=== PATIENT | male | born 1940 | race Caucasian/White ===

== ENCOUNTER 2017-07-11 18:29 | Emergency (ER) | payer MEDICARE, OTHER ==
[~2017-07-11] VITALS: Ht 172.7 cm; Wt 77.1 kg
[~2017-07-11 18:29] MED LIST: ACYCLOVIR400 MG PO; ADVAIR 500-501 EACH INH; ALBUTEROL2.5 MG/3 M IH; ALBUTEROL2.5 MG/3 M INH; ALBUTEROL2.5 MG/3 M NEB; AMARYL4 MG PO; AMITIZA24 MCG PO; AMLODIPINE BESY10 MG PO; CALCIUM WITH M1 EACH PO; D-20002000 UNIT PO; DEXILANT60 MG PO; DOXEPIN HCL150 MG PO; DULERA 100 MCG/13 GM; FERROUS SULFAT325 MG PO; GABAPENTIN300 MG PO; GABAPENTIN400 MG PO; GLIMEPIRIDE4 MG PO; GLUCOPHAGE500 MG PO; IMODIUM MULTI-1 EACH PO; IPRAT-ALBUT 0.5-3 ML INH; IPRATROPIU0.2 MG/1 M NEB; LANTUS SOL100 UNIT/1 SUB-Q; LANTUS100 UNITS/ SUB-Q; LEVAQUIN500 MG PO; LEVAQUIN750 MG PO; LINZESS145 MCG PO; LIPITOR80 MG GT; LIPITOR80 MG PO; LISINOPRIL40 MG PO; MAG6464 MG PO; METFORMIN HCL1000 MG PO; METFORMIN HCL500 MG PO; METOLAZONE5 MG PO; METOPROLOL TART25 MG PO; MILK OF MA400 MG/5 M PO; MULTI VITAMIN1 EACH PO; NEURONTIN400 MG PO; NICOTINE PATCH1 EAC1 TD; NOVOLOG FL100 UNIT/1 SQ; NOVOLOG FL100 UNIT/1 SUB-Q; NOVOLOG100 UNITS/ IV; NOVOLOG100 UNITS/ SUB-Q; OFLOXACIN10 ML OU; OFLOXACIN5 ML OU; OMNIPRED10 ML OU; OXYCODONE HCL15 MG; OXYCODONE HCL15 MG PO; PANTOPRAZOLE SO40 MG PO; PLAVIX75 MG PO; PREDNISONE20 MG PO; PRILOSEC20 MG PO; ROXICODONE15 MG PO; SENNA LAXATIVE1 EACH; SODIUM BICARBO650 MG PO; SPIRIVA18 MCG INH; TENORMIN50 MG PO; VANCOMYCIN HCL500 MG PO; VERAPAMIL ER120 MG PO; VITAMIN B-1000 MCG/1 PO; VITAMIN D50000 UNI1 PO; ZAROXOLYN5 MG PO; ZESTRIL40 MG PO; ZOFRAN ODT4 MG PO; [UNRECOGNIZED DRUG - REMARK] BUCCAL
[2017-07-11] MEDS ORDERED: TORSEMIDE20 MG PO (18:52)
[2017-07-11] MEDS ORDERED: ATENOLOL50 MG PO (18:52)
[2017-07-11] MEDS ORDERED: LISINOPRIL10 MG PO (18:52)
[2017-07-20] MEDS ORDERED: AMLODIPINE BESY10 MG PO (15:25)
[2017-07-20] MEDS ORDERED: PREDNISONE20 MG PO (16:19)
== END 2017-07-11 21:02 | disposition home or self-care (01) ==
LOC: ED 18:29
DX: I12.9 Hypertensive chronic kidney disease with stage 1 through stage 4 chronic kidney disease, or unspecified chronic kidney disease (principal); E11.22 Type 2 diabetes mellitus with diabetic chronic kidney disease; N18.3 Chronic kidney disease, stage 3 (moderate); J44.9 Chronic obstructive pulmonary disease, unspecified; R41.0 Disorientation, unspecified; R22.31 Localized swelling, mass and lump, right upper limb; F17.200 Nicotine dependence, unspecified, uncomplicated; Z86.73 Personal history of transient ischemic attack (TIA), and cerebral infarction without residual deficits; Z89.612 Acquired absence of left leg above knee; Z79.4 Long term (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 of insulin; Z79.899 Other long term (current) drug therapy
CPT/HCPCS: 71020; 80053; 81001; 85025; 93971; 99284

== ENCOUNTER → 2017-07-20 | Emergency (ER) | payer MEDICARE, OTHER ==
[~2017-07-20] VITALS: Ht 172.7 cm; Wt 77.1 kg
[~2017-07-20] MED LIST changes: +ATENOLOL50 MG PO; +LISINOPRIL10 MG PO; +TORSEMIDE20 MG PO
--- NOTE | 2017-07-20 18:35 | EKG ---
[facility] [address] [place] [address] Signed Normal sinus rhythm Normal ECG When compared with ECG of 06-NOV-2016 22:11, [place] interval has decreased Confirmed by SAHIL GAMEZ MD ([id number]) on 07/20/2017 6:35:33 PM Electronically Signed By: SAHIL GAMEZ MD 07/20/17 1835 PATIENT NAME: PORFIRIO ZAVALA [place] Electrocardiogram DATE OF : 40 PHYSICIAN: SAHIL GAMEZ MD REPORT #: [id number] REPORT IS CONFIDENTIAL AND NOT TO BE RELEASED WITHOUT AUTHORIZATION
== END ==
LOC: ED 13:28
DX: J44.9 Chronic obstructive pulmonary disease, unspecified (principal); I12.9 Hypertensive chronic kidney disease with stage 1 through stage 4 chronic kidney disease, or unspecified chronic kidney disease; E11.22 Type 2 diabetes mellitus with diabetic chronic kidney disease; N18.3 Chronic kidney disease, stage 3 (moderate); F17.200 Nicotine dependence, unspecified, uncomplicated; Z79.4 Long term (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 of insulin; Z86.73 Personal history of transient ischemic attack (TIA), and cerebral infarction without residual deficits; Z89.612 Acquired absence of left leg above knee; Z90.49 Acquired absence of other specified parts of digestive tract; Z79.899 Other long term (current) drug therapy
CPT/HCPCS: 71010; 80053; 83735; 83880; 84484; 85025; 93005; 93010; 99284

== ENCOUNTER 2017-08-01 15:16 | Emergency (ER) | payer MEDICARE, OTHER ==
[~2017-08-01] VITALS: Ht 172.7 cm; Wt 77.1 kg
--- NOTE | 2017-08-01 18:39 | EKG ---
[facility] [address] [facility] [place] [address] Signed Normal sinus rhythm Nonspecific ST abnormality Abnormal ECG When compared with ECG of 20-JUL-2017 13:51, No significant change was found Confirmed by SAHIL GAMEZ MD ([id number]) on 08/01/2017 6:39:02 PM Electronically Signed By: SAHIL GAMEZ MD 08/01/17 1839 PATIENT NAME: LUCASPORFIRIOTONIA CHACON Electrocardiogram DATE OF : 40 PHYSICIAN: SAHIL GAMEZ MD REPORT #: [id number] REPORT IS CONFIDENTIAL AND NOT TO BE RELEASED WITHOUT AUTHORIZATION
== END 2017-08-01 18:55 | disposition home or self-care (01) ==
LOC: ED 15:16
DX: I12.9 Hypertensive chronic kidney disease with stage 1 through stage 4 chronic kidney disease, or unspecified chronic kidney disease (principal); E11.22 Type 2 diabetes mellitus with diabetic chronic kidney disease; N18.3 Chronic kidney disease, stage 3 (moderate); E86.0 Dehydration; F17.200 Nicotine dependence, unspecified, uncomplicated; Z79.4 Long term (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 of insulin; Z89.519 Acquired absence of unspecified leg below knee; Z90.49 Acquired absence of other specified parts of digestive tract; Z79.52 Long term (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 of systemic steroids
CPT/HCPCS: 71020; 80053; 81001; 83880; 84484; 85025; 93005; 93010; 99284; J7040

== ENCOUNTER 2017-12-04 13:34 | Emergency (ER) | payer MEDICARE, OTHER ==
[~2017-12-04] VITALS: Ht 172.7 cm; Wt 80.3 kg
--- OUTSIDE RECORDS SUMMARY | 2017-12-04 13:41 | XMS | Clinical Summary ---
Demographics + + + | Address | [address] | | | [place] [address] | + + + | Home Phone | | + + + | Preferred Language | Unknown | + + + | Marital Status | Single | + + + | Pentecostal Affiliation | PRO | + + + | Race | White | + + + | Ethnic Group | Not or | + + + Author + + + | Author | [facility] | + + + | Organization | [facility] | + + + | Address | Unknown | + + + | Phone | Unavailable | + + + Support +------+ + + +-------+ | Name | Relationship | Address | Phone | +------+ + + +-------+ ECON | [place] | | [address] | +------+ + + +-------+ Care Team Providers + +------+ + | Care Erosion Control Specialist Name | Role | Phone | + +------+ + | Rahul Silva MD | PP | Unavailable | + +------+ + Source Comments DAKOTA is fully live on both [facility] and [facility] InPatient.[facility] Allergies No Known Allergies Current Medications + + +-------+---------+------+------+-------+ | Prescription | Sig. | Disp. | Refills | Star | End | Statu | | | | | | t | Date | s | | | | | | Date | | | + + +-------+---------+------+------+-------+ | oxycodone, | Take 15 mg by mouth | | | 05/1 | | Activ | | immediate release, | every three hours as | | | 1/20 | | e | | 15 mg Oral Tablet | needed. | | | 10 | | | + + +-------+---------+------+------+-------+ | hydromorphone 2 mg | Take 2 mg by mouth | | | 05/1 | | Activ | | Oral Tablet | every two hours as | | | 1/20 | | e | | | needed. | | | 10 | | | + + +-------+---------+------+------+-------+ | atenolol 50 mg | Take 50 mg by mouth | | | | | Activ | | Oral Tablet | once daily. | | | | | e | + + +-------+---------+------+------+-------+ | atorvastatin | Take 80 mg by mouth | | | | | Activ | | (LIPITOR) 80 mg Oral | once daily. | | | | | e | | Tablet | | | | | | | + + +-------+---------+------+------+-------+ | glimepiride 4 mg | Take 4 mg by mouth | | | | | Activ | | Oral Tablet | once daily with | | | | | e | | | breakfast. | | | | | | + + +-------+---------+------+------+-------+ | amlodipine | Take 5 mg by mouth | | | | | Activ | | (NORVASC) 5 mg Oral | once daily. | | | | | e | | Tablet | | | | | | | + + +-------+---------+------+------+-------+ | metolazone 5 mg | Take 5 mg by mouth | | | | | Activ | | Oral Tablet | once daily. | | | | | e | + + +-------+---------+------+------+-------+ | levothyroxine 50 | Take 50 mcg by mouth | | | | | Activ | | mcg Oral Tablet | once daily. | | | | | e | + + +-------+---------+------+------+-------+ | lisinopril 40 mg | Take 40 mg by mouth | | | | | Activ | | Oral Tablet | once daily. | | | | | e | + + +-------+---------+------+------+-------+ | clopidogrel | Take 75 mg by mouth | | | | | Activ | | (PLAVIX) 75 mg Oral | once daily. | | | | | e | | Tablet | | | | | | | + + +-------+---------+------+------+-------+ | doxepin 150 mg | Take 10 mg by mouth | | | | | Activ | | Oral Capsule | once daily at | | | | | e | | | bedtime. | | | | | | + + +-------+---------+------+------+-------+ | duloxetine | Take 60 mg by mouth | | | | | Activ | | (CYMBALTA) 60 mg | once daily. | | | | | e | | Oral Capsule, | | | | | | | | Delayed | | | | | | | | Release(E.C.) | | | | | | | + + +-------+---------+------+------+-------+ | gabapentin 600 mg | Take 1,200 mg by | | | 03/31 | | Activ | | Oral Tablet | mouth four times | | | 12/20 | | e | | | daily. | | | 10 | | | + + +-------+---------+------+------+-------+ Active Problems + + + | Problem | Noted Date | + + + | Low back pain | 04/10/2010 | + + + | Herniated lumbar intervertebral disc | 04/10/2010 | + + + | Stump pain (HCC) | 04/10/2010 | + + + Family History + + +------+ + | Medical History | Relation | Name | Comments | + + +------+ + | Alcohol/Drug | Father | | | + + +------+ + | Stroke | Maternal | | | | | Grandmoth | | | | | er | | | + + +------+ + | Anesthesia | Mother | | | + + +------+ + | Arthritis | Mother | | | + + +------+ + | Thyroid | Mother | | | + + +------+ + + +------+--------+ + | Relation | Name | Status | Comments | + +------+--------+ + | Father | | | | + +------+--------+ + | Maternal Grandmother | | | | + +------+--------+ + | Mother | | | | + +------+--------+ + Social History + + + +--------+------+ | Tobacco Use | Types | Packs/Day | Years | Date | | | | | Used | | + + + +--------+------+ | Current Every Day | Cigarettes | 2 | 50 | | | Smoker | | | | | + + + +--------+------+ + + +---------+ + | Alcohol Use | Drinks/We | oz/Week | Comments | | | ek | | | + + +---------+ + | No | | | | + + +---------+ + + + + | Sex Assigned at | Date Recorded | | | | + + + | Not on file | | + + + Last Filed Vital Signs + + + + | Vital Sign | Reading | Time Taken | + + + + | Blood Pressure | 140/54 | 04/10/2010 1:36 PM PDT | + + + + | Pulse | 80 | 04/10/2010 1:36 PM PDT | + + + + | Temperature | 37.1 C (98.8 F) | 04/10/2010 1:36 PM PDT | + + + + | Respiratory Rate | 16 | 04/10/2010 1:36 PM PDT | + + + + | Oxygen Saturation | 96% | 04/10/2010 1:36 PM PDT | + + + + | Inhaled Oxygen | - | - | | Concentration | | | + + + + | Weight | 89.4 kg (197 lb) | 04/10/2010 1:36 PM PDT | + + + + | Height | 170.2 cm (5' 7") | 04/10/2010 1:36 PM PDT | + + + + | Body Mass Index | 30.85 | 04/10/2010 1:36 PM PDT | + + + + Plan of Treatment + + + + + | Health Maintenance | Due Date | Last Done | Comments | + + + + + | INFLUENZA VACCINE | | | | | (FLU SHOT) | 7 | | | + + + + + Results Not on filefrom Last 3 Months
--- OUTSIDE RECORDS SUMMARY | 2017-12-04 13:41 | XMS | Clinical Summary ---
Demographics + + + | Address | [address] | | | [place] [address] | + + + | Home Phone | | + + + | Preferred Language | Unknown | + + + | Marital Status | Single | + + + | Mormonism Affiliation | PRO | + + + | Race | White | + + + | Ethnic Group | Not or | + + + Author + + + | Author | [facility] | + + + | Organization | [facility] | + + + | Address | Unknown | + + + | Phone | Unavailable | + + + Support +------+ + + +-------+ | Name | Relationship | Address | Phone | +------+ + + +-------+ ECON | [place] | | [address] | +------+ + + +-------+ Care Team Providers + +------+ + | Care Transformation Analyst Name | Role | Phone | + +------+ + | Rahul Silva MD | PP | Unavailable | + +------+ + Source Comments DAKOTA is fully live on both [facility] and [facility] InPatient.[facility] Allergies No Known Allergies Current Medications + [...]
== END 2017-12-04 15:27 | disposition home or self-care (01) ==
LOC: ED 13:34
DX: R51 Headache (principal); I12.9 Hypertensive chronic kidney disease with stage 1 through stage 4 chronic kidney disease, or unspecified chronic kidney disease; E11.22 Type 2 diabetes mellitus with diabetic chronic kidney disease; N18.4 Chronic kidney disease, stage 4 (severe); J44.9 Chronic obstructive pulmonary disease, unspecified; F17.200 Nicotine dependence, unspecified, uncomplicated; Z86.73 Personal history of transient ischemic attack (TIA), and cerebral infarction without residual deficits; Z79.899 Other long term (current) drug therapy; Z79.4 Long term (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 of insulin; Z99.2 Dependence on renal dialysis
CPT/HCPCS: 36415; 70450; 85025; 85651; 96372; 99284; J2270

== ENCOUNTER 2017-12-09 16:10 | Emergency (ER) | payer MEDICARE, OTHER ==
[~2017-12-09] VITALS: Ht 172.7 cm; Wt 77.1 kg
== END 2017-12-09 16:37 | disposition home or self-care (01) ==
LOC: ED 16:10
DX: S51.811D Laceration without foreign body of right forearm, subsequent encounter (principal); X58.XXXD Exposure to other specified factors, subsequent encounter

== ENCOUNTER 2018-05-27 19:49 | Emergency (ER) | payer MEDICARE, OTHER ==
[~2018-05-27] VITALS: Ht 172.7 cm; Wt 77.1 kg
[2018-05-27] MEDS ORDERED: KEFLEX500 MG PO (22:19)
== END 2018-05-27 22:30 | disposition home or self-care (01) ==
LOC: ED 19:49
DX: N39.0 Urinary tract infection, site not specified (principal); E11.9 Type 2 diabetes mellitus without complications; I12.9 Hypertensive chronic kidney disease with stage 1 through stage 4 chronic kidney disease, or unspecified chronic kidney disease; N18.4 Chronic kidney disease, stage 4 (severe); J44.9 Chronic obstructive pulmonary disease, unspecified; F17.200 Nicotine dependence, unspecified, uncomplicated; Z79.899 Other long term (current) drug therapy; Z79.4 Long term (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 of insulin
CPT/HCPCS: 74176; 80053; 81001; 85025; 99284

== ENCOUNTER 2019-02-15 22:20 | Observation (INO) | payer MEDICARE, OTHER ==
[~2019-02-15] VITALS: Ht 172.7 cm; Wt 82.8 kg
--- OUTSIDE RECORDS SUMMARY | ~2019-02-15 | XMS | Clinical Summary ---
Demographics + + + | Address | [address] | | | [place] [address] | + + + | Home Phone | | + + + | Preferred Language | Unknown | + + + | Marital Status | | + + + | Sikh Affiliation | 1077 | + + + | Race | Unknown | + + + | Ethnic Group | Unknown | + + + Author + + + | Author | [facility] | | | and [place] | + + + | Organization | [facility] | | | [...] Team Providers + +------+ + | Care Refining Engineer Name | Role | Phone | + +------+ + | Rahul Silva MD | PP | Unavailable | + +------+ + Allergies No Known Allergies Current Medications + + +-------+---------+------+------+-------+ | Prescription | Sig. | Disp. | Refills | Star | End | Statu | | | | | | t | Date | s | | | | | | Date | | | + + +-------+---------+------+------+-------+ | albuterol 2.5 mg/3 | Take 2.5 mg by | | | | | Activ | | mL nebulizer | nebulization every 6 | | | | | e | | solution | hours as needed. | | | | | | + + +-------+---------+------+------+-------+ | oxyCODONE | Take 15 mg by mouth | | | | | Activ | | (ROXICODONE) 15 mg | every 4 hours. | | | | | e | | immediate release | | | | | | | | tablet | | | | | | | + + +-------+---------+------+------+-------+ | ondansetron | Take 4 mg by mouth | | | | | Activ | | (ZOFRAN ODT) 4 mg | every 8 hours as | | | | | e | | disintegrating | needed. | | | | | | | tablet | | | | | | | + + +-------+---------+------+------+-------+ | amlodipine | Take 10 mg by mouth | | | | | Activ | | (NORVASC) 10 MG | Daily. | | | | | e | | tablet | | | | | | | + + +-------+---------+------+------+-------+ | ferrous sulfate | Take 325 mg by mouth | | | | | Activ | | 325 mg tablet | 2 times daily (with | | | | | e | | | breakfast & | | | | | | | | dinner). | | | | | | + + +-------+---------+------+------+-------+ | metolazone | Take 5 mg by mouth | | | | | Activ | | (ZAROXOLYN) 5 MG | Daily. | | | | | e | | tablet | | | | | | | + + +-------+---------+------+------+-------+ | lisinopril | Take 40 mg by mouth | | | | | Activ | | (PRINIVIL,ZESTRIL) | Daily. | | | | | e | | 40 MG tablet | | | | | | | + + +-------+---------+------+------+-------+ | atorvaSTATin | Take 80 mg by mouth | | | | | Activ | | (LIPITOR) 80 MG | nightly. | | | | | e | | tablet | | | | | | | + + +-------+---------+------+------+-------+ | doxepin (SINEQUAN) | Take 150 mg by mouth | | | | | Activ | | 150 MG capsule | nightly. | | | | | e | + + +-------+---------+------+------+-------+ | gabapentin | Take 400 mg by mouth | | | | | Activ | | (NEURONTIN) 400 mg | nightly. | | | | | e | | capsule | | | | | | | + + +-------+---------+------+------+-------+ | nicotine | Place 1 patch onto | | | | | Activ | | (NICODERM) 21 mg/24 | the skin every 24 | | | | | e | | hr | hours. | | | | | | + + +-------+---------+------+------+-------+ | clopidogrel | Take 75 mg by mouth | | | | | Activ | | (PLAVIX) 75 mg | Daily. | | | | | e | | tablet | | | | | | | + + +-------+---------+------+------+-------+ | acyclovir | Take 400 mg by mouth | | | | | Activ | | (ZOVIRAX) 400 MG | 2 times daily. | | | | | e | | tablet | Takes 400mg AM and | | | | | | | | HS | | | | | | + + +-------+---------+------+------+-------+ | insulin aspart | Inject under the | | | | | Activ | | (NOVOLOG PENFILL) | skin 3 times daily | | | | | e | | 100 units/mL | (before meals). Per | | | | | | | injection [...] | M.D. | | | | | | + + +-------+---------+------+------+-------+ | | Take 3 mLs by | | | | | Activ | | albuterol-ipratropiu | nebulization Before | | | | | e | | m (DUONEB) 2.5-0.5 | breakfast, dinner | | | | | | | mg/3 mL SOLN | and bedtime. | | | | | | + + +-------+---------+------+------+-------+ | nicotine | Place 2 mg inside | | | | | Activ | | (NICORETTE) 2 mg gum | cheek every hour as | | | | | e | | | needed (nicotine | | | | | | | | cravings). | | | | | | + + +-------+---------+------+------+-------+ | Cholecalciferol | Take 50,000 Units by | | | | | Activ | | (VITAMIN D-3) [address]198 | mouth Every 3 | | | | | e | | units CAPS | months. Times 3 | | | | | | | | doses | | | | | | + + +-------+---------+------+------+-------+ | magnesium | Take by mouth Daily | | | | | Activ | | hydroxide (MILK OF | as needed for | | | | | e | | MAGNESIA) 400 mg/5 | Constipation. | | | | | | | mL suspension | | | | | | | + + +-------+---------+------+------+-------+ | Multiple | Take 1 tablet by | | | | | Activ | | Vitamins-Minerals | mouth Daily. | | | | | e | | (MULTIVITAMIN ADULT | | | | | | | | PO) | | | | | | | + + +-------+---------+------+------+-------+ | cyanocobalamin | Take 1,000 mcg by | | | | | Activ | | (VITAMIN B-12) 1000 | mouth every 14 days. | | | | | e | | MCG tablet | | | | | | | + + +-------+---------+------+------+-------+ | atenolol | Take 50 mg by mouth | | | | | Activ | | (TENORMIN) 50 mg | Daily. | | | | | e | | tablet | | | | | | | + + +-------+---------+------+------+-------+ | glimepiride | Take 8 mg by mouth | | | | | Activ | | (AMARYL) 4 mg tablet | every morning | | | | | e | | | (before breakfast). | | | | | | | | Takes 8mg QAC | | | | | | + + +-------+---------+------+------+-------+ | aspirin 81 mg | Take 81 mg by mouth | | | | | Activ | | chewable tablet | Daily. | | | | | e | + + +-------+---------+------+------+-------+ Active Problems + + + | Problem | Noted Date | + + + | Intractable pain | 08/04/2016 | + + + | Insulin dependent type 2 diabetes mellitus, uncontrolled (HCC) | 08/04/2016 | + + + | PAOLO on CPAP | 08/04/2016 | + + + + + | Overview: With additional 4 L of nasal cannula oxygen | + + + + + | Phantom limb pain (HCC) | 08/04/2016 | + + + | Intertrochanteric fracture of left hip, closed, initial encounter | 08/03/2016 | | (HCC) | | + + + | Laceration of left ear, initial encounter | 08/03/2016 | + + + | Status post fall | 08/03/2016 | + + + | Acute hyperkalemia | 08/03/2016 | + + + | Chronic kidney disease (CKD), stage 3 (moderate) | 08/03/2016 | + + + | PAOLO (obstructive sleep apnea) | 02/16/2014 | + + + | COPD (chronic obstructive pulmonary disease) (HCC) | 02/16/2014 | + + + Immunizations + + + + | Name | Dates Previously Given | Next Due | + + + + | TDAP, (ADOL/ADULT) | 08/03/2016 | | + + + + Social History + [...] + | Blood Pressure | 171/70 | 08/05/2016724 PDT | + + + + | Pulse | 69 | 08/05/20161199 PDT | + + + + | Temperature | 36.7 C (98.1 F) | 08/05/2016724 PDT | + + + + | Respiratory Rate | 16 | 08/05/2016925 PDT | + + + + | Oxygen Saturation | 90% | 08/05/20161199 PDT | + + + + | Inhaled Oxygen | - | - | | Concentration | | | + + + + | Weight | 94 kg (207 lb 3.2 | 08/05/2016499 PDT | | | oz) | | + + + + | Height | 172.7 cm (5' 8") | 08/04/20166 PDT | + + + + | Body Mass Index | 31.5 | 08/05/2016499 PDT | + + + + Plan of Treatment + + + + + | Health Maintenance | Due Date | Last Done | Comments | + + + + + | Vaccine: Zoster (1 | | | | | of 2) | 0 | | | + + + + + | Vaccine: | | | | | Pneumococcal 65+ | 5 | | | | Low/Medium Risk (1 | | | | | of 2 - PCV13) | | | | + + + + + | Vaccine: Influenza | | | | | (#1) | 8 | | | + + + + + | Vaccine: | | 08/03/2016 | | | Dtap/Tdap/Td (2 - | 6 | | | | Td) | | | | + + + + + Results Not on filefrom Last 3 Months Insurance + +--------+ +--------+ +---------+ | Payer | Benefi | Subscriber | Type | Phone | Address | | | t Plan | ID | | | | | | / | | | | | | | Group | | | | | + +--------+ +--------+ +---------+ | [place] | MEDICA | [id number] | Medica | [phone] | | | ID | | id | [phone] | | | | [place] | | | | | + +--------+ +--------+ +---------+ + +--------+ +--------+ + + | Guarantor Name | Accoun | Relation to | Date | Phone | Billing Address | | | t Type | Patient | of | | | | | | | | | | + +--------+ +--------+ + + | PORFIRIO ZAVALA | Person | Self [birth year] | Home: | [address] | | [place] | al/[place] | | 1940 | [phone] [place] | | | [place] | | | [address] | [phone] | + +--------+ +--------+ + +
--- OUTSIDE RECORDS SUMMARY | ~2019-02-15 | XMS | Encounter Summary ---
Demographics + + + | Address | [address] | | | [place] [address] | + + + | Home Phone | | + + + | Preferred Language | Unknown | + + + | Marital Status | | + + + | [employer] Affiliation | [id number] | + + + | Race | Unknown | + + + | Ethnic Group | Unknown | + + + Author + + + | Author | [facility] | + + + | Organization | [facility] | + + + | Address | Unknown | + + + | Phone | Unavailable | + + + Support + + +---------+ + | Name | Relationship | Address | Phone | + + +---------+ + | Charlotte Andujar | ECON | Unknown | | + + +---------+ + Care Team Providers + +------+ + | Care Religious Activities Director Name | Role | Phone | + +------+ + | Rahul Silva MD | PCP | Unavailable | + +------+ + Encounter Details +--------+---------+ + + + | Date | Type | Department | Care Team | Description | +--------+---------+ + + + | 12/07/ | Office | [facility] | Farrukh Acuna MD | CKD (chronic kidney | | 2019 | Visit | [address] [address] | [address] | disease), stage IV | | | | [address] | [address] [place], [place] | (Primary Dx); Edema | | | | [place] [address] | [id number] | of right lower | | | | [phone] | | extremity; Anemia of | | | | | | chronic renal | | | | | | failure, stage 4 | | | | | | (severe) ([facility]); | | | | | | Electrolyte | | | | | | imbalance risk; | | | | | | Persistent | | | | | | proteinuria; Tobacco | | | | | | abuse; 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, with | | | | | | long-term current | | | | | | use of insulin | | | | | | ([facility]); Secondary | | | | | | hyperparathyroidism | | | | | | (HCC); Vitamin D | | | | | | deficiency | +--------+---------+ + + + Social History + +-------+ +--------+------+ | Tobacco Use | Types | Packs/Day | Years | Date | | | | | Used | | + +-------+ +--------+------+ | Current Every Day | | 1 | | | | Smoker | | | | | + +-------+ +--------+------+ + +---+---+---+ | Smokeless Tobacco: | | | | | Never Used | | | | + +---+---+---+ + + +---------+ + | Alcohol Use | Drinks/We | oz/Week | Comments | | | ek | | | + + +---------+ + | No | 0 | 0.0 | | | | Standard | | | | | drinks or | | | | | | | | | | equivalen | | | | | t | | | + + +---------+ + + + + | Sex Assigned at | Date Recorded | | | | + + + | Not on file | | + + + as of this encounter Last Filed Vital Signs + + + + | Vital Sign | Reading | Time Taken | + + + + | Blood Pressure | 162/60 | 12/07/2018 11:58 AM PST | + + + + | Pulse | 63 | 12/07/2018 11:58 AM PST | + + + + | Temperature | - | - | + + + + | Respiratory Rate | - | - | + + + + | Oxygen Saturation | 96% | 12/07/2018 11:58 AM PST | + + + + | Inhaled Oxygen | - | - | | Concentration | | | + + + + | Weight | 84.9 kg (187 lb 3.2 | 12/07/2018 11:58 AM PST | | | oz) | | + + + + | Height | 172.7 cm (5' 8") | 12/07/2018 11:58 AM PST | + + + + | Body Mass Index | 28.46 | 12/07/2018 11:58 AM PST | + + + + in this encounter Instructions Patient Instructions - Farrukh Acuna MD - 12/07/2018 12:00 PM PSTDiscussions/Recommendatio ns: I discussed today with Mr. Andujar the [...] low salt, low phosphorus & low purine diet and will avoid al l kinds of NSAIDs for analgesia. Also: I will not change any of his vasoactive meds today. I kept his Torsemide to 40 mg alternating with 20 mg every other day. I sent him for a repeat BMP in 5 weeks. he will bring me back his home weights & BP charts in 4 weeks. At that time, I will deci de whether any changes to his vasoactive regimen are warranted. (because of his low GFR, his hx of severe ZEKE, his low DBP's: I had been unable to uptitrate his RAAS blockade) I asked him to elevate his legs for 1 and 1/2 hours once a day. He knows that he still n eeds to be active and ambulatory carefully as possible. I kept his Calcitriol to 0.25 mcg daily. I increased his Cholecalciferol (Vitamin D3) to 2,000 units daily. I advised him to stop smoking ALEXI; I explained the benefits of doing that. He voiced good understanding. I asked him to F/U with the Sleep Medicine team closely. He will continue to F/U with your office regularly. He will have RFP, CBC, Fe studies, Ferritin, intact PTH, rU/A, Urine total mbyesaj-wt-wq eatinine ratio done before he comes back in 3 months. in this encounter Progress Notes Farrukh Acuna MD - 12/07/2018 12:00 PM PSTFormatting of this note may be different from richard fragoso original. Patient Active Problem List Diagnosis CKD (chronic kidney disease), stage IV Type 2 diabetes mellitus with diabetic nephropathy, with long-term current use of insul in ([facility]) FH: HTN (hypertension) Edema of right lower extremity Tobacco abuse History of stroke Hyperuricemia Obesity Anemia of chronic renal failure, stage 4 (severe) (HCC) Persistent proteinuria History of leg amputation Cataracts, bilateral COPD (chronic obstructive pulmonary disease) Vitamin D deficiency Hypomagnesemia ZEKE (acute kidney injury) Secondary hyperparathyroidism (HCC) Iron deficiency Electrolyte imbalance risk Dear Dr Silva: I saw your patient Mr. Andujar in the office today with his daughter; he is here to F/U o n his severe CKD & its associated complications. 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 He was admitted to [facility] for 3 nights in July 2016 for [...] blood clot in his left leg in 1992. his BG and BP control has been reporte dly inadequate. he denies any history of prolonged exposure to NSAIDs or recent exposure to known nephrotoxins. he denies any recurrent nephrolithiasis or pyelonephritis. he tells me t hat he's had no history of urinary retention, gross hematuria or dysuria. he has no incontin ence symptoms. No symptoms of UTI. For male patients: no history of frequency, nocturia, we ak urinary stream, hesitancy, intermittence, incomplete emptying or urgency; he has no noct uria lately. No history of passing kidney stones. he has no foamy urine either; his baseli ne Creatinine was 1.6-1.8 before 07/2016. There is no family history of renal genetic diseas es such as PKD. he says that he feels 'fair ' today. Reports chronic stomach issues, fatigue. he denies a ny blurred vision tinnitus, [...] a nd were otherwise negative. Current Outpatient Prescriptions Medication Sig Dispense Refill acyclovir (ZOVIRAX) 400 MG tablet Take 400 mg by mouth 2 (two) times daily. amLODIPine (NORVASC) 10 MG tablet Take 10 mg by mouth daily. aspirin 81 MG tablet Take 81 mg by mouth daily. atenolol (TENORMIN) 50 MG tablet Take 25 mg by mouth daily. atorvastatin (LIPITOR) 80 MG tablet Take 80 mg by mouth daily. calcitRIOL (ROCALTROL) 0.25 MCG capsule Take 1 capsule by mouth daily. 90 capsule 3 clopidogrel (PLAVIX) 75 MG tablet Take 75 mg by mouth daily. doxepin (SINEQUAN) 50 MG capsule gabapentin (NEURONTIN) 400 MG capsule Take 400 mg by mouth nightly. ipratropium (ATROVENT) 0.02 % nebulizer solution Take 0.5 mg by nebulization 4 (four) t imes daily. ipratropium-albuterol (DUO-NEB) 0.5-2.5 mg/3mL LANTUS SOLOSTAR 100 UNIT/ML injection 25 Units nightly. LINZESS 145 MCG capsule Take 145 mcg by mouth every morning before breakfast. lisinopril (ZESTRIL) 10 MG tablet Take 1 tablet by mouth daily. 30 tablet 3 magnesium chloride (MAG64) 64 mg EC tablet Take 2 tablets by mouth daily. 180 tablet 3 Multiple Vitamins-Minerals (CENTRUM SILVER ADULT 50+) TABS Take 1 tablet by mouth daily . NOVOLOG FLEXPEN 100 UNIT/ML injection ondansetron (ZOFRAN) 4 MG tablet Take 4 mg by mouth 3 (three) times daily as needed. oxyCODONE (ROXICODONE) 15 MG immediate release tablet Take 15 mg by mouth 6 (six) times daily. sodium bicarbonate 650 MG tablet Take 1 tablet by mouth 4 (four) times daily. 360 table t 3 torsemide (DEMADEX) 20 MG tablet Take 40 mg alternating with 20 mg every other day. 45 tablet 11 Blood Pressure KIT Use as directed for BP measurements twice a day. 1 each 0 No current facility-administered medications for this visit. Physical Exam: BP 162/60 (BP Location: Left upper arm, Patient Position: Sitting) | Pulse 63 | Ht 1.727 m (5' 8") | Wt 84.9 kg (187 lb 3.2 oz) | SpO2 96% | BMI 28.46 kg/m General appearance: Pleasant, not in acute distress. Wheel chair bound. Neck: Supple without tracheal deviation or jugular venous distension. Head and ENT: Head is atraumatic. The oropharynx is without erythema or thrush. Eyes: Anicteric. The extraocular muscle movements are normal. Lungs: Good A/E to auscultation bilaterally. There are mild diffuse inspiratory wheezes. Heart: Regular rate and rhythm without any rub, gallop. Faint systolic murmur at the LSB, not radiating to the LAAL. Abdominal exam: Obese. Soft and nontender with normal bowel sounds. Musculoskeletal: No costovertebral angle tenderness bilaterally. Extremities: Warm to touch with 2+ right leg edema. Left AKA. There is no cyanosis. Skin: There are no rashes, petechiae; ecchymosis on arms. Neurological: Awake, alert, and oriented to time, place, and person. Normal gross motor po wer. There is no asterixis. Psychiatric: The patient s behavior is normal. Judgment and thought content are normal. Lab Results Component Value Date BUN 54 (A) 11/27/2018 CREATININE 3.49 (A) 11/27/2018 EGFR 17 (A) 11/27/2018 NA 141 11/27/2018 K 4.7 11/27/2018 CL 107 11/27/2018 CO2 18 (A) 11/27/2018 CA 8.0 (A) 11/27/2018 PHOS 6.0 (A) 11/27/2018 MG 1.6 (A) 10/08/2018 ALB 3.3 (A) 11/27/2018 HGB 10.5 (A) 11/27/2018 URICACID 6.6 05/22/2018 WBC 7.6 11/27/2018 HCT 31.3 (A) 11/27/2018 FERRITIN 141.7 11/27/2018 LABIRON 23.0 11/27/2018 LABPROT 2,014.5 (A) 11/27/2018 [id number] 30 10/08/2018 Assessment: Mr. Andujar is a 78 y.o. male patient with stage IV CKD on a background of diabetes & hypert ension and recent hospitalization for C-diff and hehydration. The most likely pathology here is that of diabetic nephropathy +/- hypertensive nephrosclerosis/arteriolosclerosis. 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 RENAL FUNCTION: Below baseline vs 2015. He had a stage 1 ZEKE (acute kidney injury) in ear ly 07/2017 BLOOD PRESSURE: Reportedly better control, 120's - 150's / 40's - 60's BLOOD SUGAR: Reports it better controlled ELECTROLYTES: Acceptable; mild hyperMag ANEMIA: Mild; Fe deficiency is still moderate VITAMIN D: [...] low salt, low phosphorus & low purine diet and will avoid al l kinds of NSAIDs for analgesia. Also: I will not change any of his vasoactive meds today. I kept his Torsemide to 40 mg alternating with 20 mg every other day. I sent him for a repeat BMP in 5 weeks. he will bring me back his home weights & BP charts in 5 weeks. At that time, I will deci de whether any changes to his vasoactive regimen are warranted. (because of his low GFR, his hx of severe ZEKE, his low DBP's: I had been unable to uptitrate his RAAS blockade) I asked him to elevate his legs for 1 and 1/2 hours once a day. He knows that he still n eeds to be active and ambulatory carefully as possible. I kept his Calcitriol to 0.25 mcg daily. I increased his Cholecalciferol (Vitamin D3) to 2,000 units daily. I advised him to stop smoking ALEXI; I explained the benefits of doing that. He voiced good understanding. I asked him to F/U with the Sleep Medicine team closely. He will continue to F/U with your office regularly. He will have RFP, CBC, Fe studies, Ferritin, intact PTH, rU/A, Urine total nynmmea-ks-rp eatinine ratio done before he comes back in [address]. [address] Silva for the opportunity to see this high-complexity patient in /U . Please do not hesitate to call me at any time with questions or concerns. Truly yours, MD ORALIA Stoner, RICKEYELVA in this encounter Plan of Treatment +--------+---------+ + + + | Date | Type | Specialty | Care Team | Description | +--------+---------+ + + + | 03/08/ | Office | Nephrology | Farrukh Acuna MD | | | 2019 | Visit | | [address] | | | | | | [address] [place], [place] | | | | | | [address] | | | | | | | | +--------+---------+ + + + as of this encounter Visit Diagnoses + + | Diagnosis | + + | CKD (chronic kidney disease), stage IV - Primary | + + | Edema of right lower extremity | + + | Edema | + + | Anemia of chronic renal failure, stage 4 (severe) (HCC) | + + | Electrolyte imbalance risk | + + | Other specified conditions influencing health status | + + | Persistent proteinuria | + + | Proteinuria | + + | Tobacco abuse | + + | Tobacco use disorder | + + | Type 2 diabetes mellitus with diabetic nephropathy, with long-term current use of | | insulin (HCC) | + + | Secondary hyperparathyroidism (HCC) | + + | Secondary hyperparathyroidism (of renal origin) | + + | Vitamin D deficiency | + + | Unspecified vitamin D deficiency | + +
--- OUTSIDE RECORDS SUMMARY | ~2019-02-15 | XMS | Clinical Summary ---
Demographics + + + | Address | [address] | | | [place] [address] | + + + | Home Phone | | + + + | Preferred Language | Unknown | + + + | Marital Status | | + + + | Yazidi Affiliation | 1077 | + + + | Race | Unknown | + + + | Ethnic Group | Unknown | + + + Author + + + | Author | [employer] | + + + | Organization | [facility] | + + + | Address | Unknown | + + + | Phone | Unavailable | + + + Support + + +---------+ + | Name | Relationship | Address | Phone | + + +---------+ + | Charlotte Zavala | ECON | Unknown | | + + +---------+ + Care Team Providers + +------+ + | Care Metal Reed Tuner Name | Role | Phone | + +------+ + | Rahul Silva MD | PP | Unavailable | + +------+ + Allergies No Known Allergies Current Medications + + + +---------+------+------+-------+ | Prescription | Sig. | Disp. | Refills | Star | End | Statu | | | | | | t | Date | s | | | | | | Date | | | + + + +---------+------+------+-------+ | oxyCODONE | Take 15 mg by mouth | | | | | Activ | | (ROXICODONE) 15 MG | 6 (six) times daily. | | | | | e | | immediate release | | | | | | | | tablet | | | | | | | + + + +---------+------+------+-------+ | atorvastatin | Take 80 mg by mouth | | | | | Activ | | (LIPITOR) 80 MG | daily. | | | | | e | | tablet | | | | | | | + + + +---------+------+------+-------+ | ondansetron | Take 4 mg by mouth 3 | | | | | Activ | | (ZOFRAN) 4 MG tablet | (three) times daily | | | | | e | | | as needed. | | | | | | + + + +---------+------+------+-------+ | amLODIPine | Take 10 mg by mouth | | | | | Activ | | (NORVASC) 10 MG | daily. | | | | | e | | tablet | | | | | | | + + + +---------+------+------+-------+ | acyclovir | Take 400 mg by mouth | | | | | Activ | | (ZOVIRAX) 400 MG | 2 (two) times | | | | | e | | tablet | daily. | | | | | | + + + +---------+------+------+-------+ | atenolol | Take 25 mg by mouth | | | | | Activ | | (TENORMIN) 50 MG | daily. | | | | | e | | tablet | | | | | | | + + + +---------+------+------+-------+ | ipratropium | Take 0.5 mg by | | | | | Activ | | (ATROVENT) 0.02 % | nebulization 4 | | | | | e | | nebulizer solution | (four) times daily. | | | | | | + + + +---------+------+------+-------+ | Multiple | Take 1 tablet by | | | | | Activ | | Vitamins-Minerals | mouth daily. | | | | | e | | (CENTRUM SILVER | | | | | | | | ADULT 50+) TABS | | | | | | | + + + +---------+------+------+-------+ | aspirin 81 MG | Take 81 mg by mouth | | | | | Activ | | tablet | daily. | | | | | e | + + + +---------+------+------+-------+ | clopidogrel | Take 75 mg by mouth | | | | | Activ | | (PLAVIX) 75 MG | daily. | | | | | e | | tablet | | | | | | | + + + +---------+------+------+-------+ | lisinopril | Take 1 tablet by | 30 | 3 | 10/1 | | Activ | | (ZESTRIL) 10 MG | mouth daily. | tablet | | 08/20 | | e | | tabletIndications: | | | | 16 | | | | CKD (chronic kidney | | | | | | | | disease), stage III | | | | | | | | (HCC), Edema of | | | | | | | | right lower | | | | | | | | extremity, Anemia, | | | | | | | | unspecified type, | | | | | | | | Proteinuria, Vitamin | | | | | | | | D deficiency | | | | | | | + + + +---------+------+------+-------+ | doxepin (SINEQUAN) | | | | 10/1 | | Activ | | 50 MG capsule | | | | 9/20 | | e | | | | | | 16 | | | + + + +---------+------+------+-------+ | NOVOLOG FLEXPEN | | | | 10/2 | | Activ | | 100 UNIT/ML | | | | 1/20 | | e | | injection | | | | 16 | | | + + + +---------+------+------+-------+ | LANTUS SOLOSTAR | 25 Units nightly. | | | 10/2 | | Activ | | 100 UNIT/ML | | | | 1/20 | | e | | injection | | | | 16 | | | + + + +---------+------+------+-------+ | | | | | 08/0 | | Activ | | ipratropium-albutero | | | | 4/20 | | e | | l (ROSI) 0.5-2.5 | | | | 16 | | | | mg/3mL | | | | | | | + + + +---------+------+------+-------+ | LINZESS 145 MCG | Take 145 mcg by | | | 10/2 | | Activ | | capsule | mouth every morning | | | 520 | | e | | | before breakfast. | | | 16 | | | + + + +---------+------+------+-------+ | Blood Pressure | Use as directed for | 1 each | 0 | 02 | | Activ | | KITIndications: | BP measurements | | | 06/19 | | e | | Essential | twice a day. | | | 17 | | | | hypertension, benign | | | | | | | + + + +---------+------+------+-------+ | gabapentin | Take 400 mg by mouth | | | 06/01 | | Activ | | (NEURONTIN) 400 MG | nightly. | | | 07/20 | | e | | capsule | | | | 17 | | | + + + +---------+------+------+-------+ | sodium bicarbonate | Take 1 tablet by | 360 | 3 | 05/ | 03/31 | Activ | | 650 MG tablet | mouth 4 (four) times | tablet | | 20 | 05/20 | e | | | daily. | | | 18 | 19 | | + + + +---------+------+------+-------+ | magnesium chloride | Take 2 tablets by | 180 | 3 | 08/0 | 08/0 | Activ | | (MAG64) 64 mg EC | mouth daily. | tablet | | 08/20 | 08/20 | e | | tablet | | | | 18 | 19 | | + + + +---------+------+------+-------+ | calcitRIOL | Take 1 capsule by | 90 | 3 | 08/02 | 08/02 | Activ | | (ROCALTROL) 0.25 MCG | mouth daily. | capsule | | 03/20 | 03/20 | e | | capsule | | | | 18 | 19 | | + + + +---------+------+------+-------+ | torsemide | Take 40 mg | 45 | 11 | 12/2 | | Activ | | (DEMADEX) 20 MG | alternating with 20 | tablet | | 20 | | e | | tabletIndications: | mg every other day. | | | 18 | | | | Edema of right lower | | | | | | | | extremity, Family | | | | | | | | history of | | | | | | | | hypertension, Stage | | | | | | | | 4 chronic kidney | | | | | | | | disease (HCC) | | | | | | | + + + +---------+------+------+-------+ Active Problems + + + | Problem | Noted Date | + + + | Electrolyte imbalance risk | 02/16/2018 | + + + | Iron deficiency | 05/30/2017 | + + + | Secondary hyperparathyroidism (HCC) | 01/17/2017 | + + + | ZEKE (acute kidney injury) | 12/20/2016 | + + + | Hypomagnesemia | 02/03/2015 | + + + | CKD (chronic kidney disease), stage IV | 06/06/2014 | + + + | Type 2 diabetes mellitus with diabetic nephropathy, with | 06/06/2014 | | long-term current use of insulin (HCC) | | + + + | FH: HTN (hypertension) | 06/06/2014 | + + + + + | Last Assessment & Plan: Controlled on current [id number] yr | | old male with COPD, current heavy smoker, PAOLO/COPD on Cpap | | machine, PVD s/p rt [place] amputation, DM, HLD, CVA, obesity, CKDNo | | complaints of chest pain,SOB at baselineWheel chair boundContinue | | ASA, Statin, Atenolol, Lisinopril, AmlodipineEcho 03/2016- normal | | LV systolic functionCath- 05/2003- Mild CADDiscussed importance | | of smoking cessation, diet, activity, lifestyle changes, weight | | loss, Na restriction, medication complianceF/u in 6 months. | |Discussed importance of smoking cessation, diet, activity, lifestyle changes, weight loss, Na restriction, medication compliance | |F/u in 6 months. | + + + + + | Edema of right lower extremity | 06/06/2014 | + + + | Tobacco abuse | 06/06/2014 | + + + | History of stroke | 06/06/2014 | + + + | Hyperuricemia | 06/06/2014 | + + + | Obesity | 06/06/2014 | + + + | Anemia of chronic renal failure, stage 4 (severe) (HCC) | 06/06/2014 | + + + | Persistent proteinuria | 06/06/2014 | + + + + + | Overview: Mild. | + + + + + | History of leg amputation | 06/06/2014 | + + + + + | Overview: Left. | + + + + + | Cataracts, bilateral | 06/06/2014 | + + + | COPD (chronic obstructive pulmonary disease) | 06/06/2014 | + + + | Vitamin D deficiency | 06/06/2014 | + + + Encounters +--------+ + + + + | Date | Type | Specialty | Care Team | Description | +--------+ + + + + | 12/07/ | Office | | Farrukh Acuna MD | CKD (chronic kidney | | 2019 | Visit | | | disease), stage IV | | | | | | (Primary Dx); Edema | | | | | | of right lower | | | | | | extremity; Anemia of | | | | | | chronic renal | | | | | | failure, stage 4 | | | | | | (severe) ([facility]); | | | | | [...] insulin | | | | | | ([facility]); Secondary | | | | | | hyperparathyroidism | | | | | | ([facility]); Vitamin D | | | | | | deficiency | +--------+ + + + + | 12/07/ | Telephone | | [place], | | | 2018 | | | ARNAUD Abdi | | +--------+ + + + + | 11/30/ | Documentati | | Alfred, | Mary (Labs) | | 2018 | on Only | | ARNAUD Abdi | | +--------+ + + + + | 11/25/ | Refill | | Sandy Capellan | Edema of right lower | | 2017 | | | M, RN | extremity (Primary | | | | | | Dx); FH: HTN | | | | | | (hypertension); CKD | | | | | | (chronic kidney | | | | | | disease), stage IV | +--------+ + + + + from Last 3 Months Immunizations +------+ + + | Name | Dates Previously Given | Next Due | +------+ + + | Tdap | 08/03/2016 | | +------+ + + Family History + + +------+ [...] +------+ + + Social History + +-------+ +--------+------+ [...] Temperature | 36.7 C (98.1 F) | 05/25/2018 1:29 PM PDT | + + + + | Respiratory Rate | 18 | 10/03/2016 3:20 PM PDT | + + + + [...] AM PST | + + + + Plan of Treatment +--------+---------+ + + + | Date | Type | Specialty | Care Team | Description | +--------+---------+ + + + | 03/08/ | Office | | Farrukh Acuna MD | | | 2019 | Visit | | [address] | | | | | | [address] [place] | | | | | | [address] | | | | | | | | +--------+---------+ + + + + + + + + | Health Maintenance | Due Date | Last Done | Comments | + + + + + | Diabetic Eye Exam | | | | | | 0 | | | + + + + + | Diabetic Foot Exam | | | | | | 0 | | | + + + + + | Vaccine: Zoster (1 | | | | | of 2) | 0 | | | + + + + + | Vaccine: | | | | | Pneumococcal 65+ | 5 | | | | High/Highest Risk (1 | | | | | of 2 - PCV13) | | | | + + + + + | Vaccine: Influenza | | | | | (#1) | 8 | | | + + + + + | Hemoglobin A1c | | 07/14/2018, 10/27/2017 | | | | 9 | | | + + [...] | + +--------+ + + + | PROTEIN / CREATININE | Routin | 11/27/2018 | | Results for this | | RATIO, URINE | e | 4:05 PM | | procedure are in the | | | | PST | | results section. | + +--------+ + + + | IRON AND TIBC | Routin | 11/27/2018 | | Results for this | | | e | 4:05 PM | | procedure are in the | | | | PST | | results section. | + +--------+ + + + | FERRITIN | Routin | 11/27/2018 | | Results for this | | | e | 4:05 PM | | procedure are in the | | | | PST | | results section. | + +--------+ + + + | RENAL FUNCTION PANEL | Routin | 11/27/2018 | | Results for this | | | e | 4:05 PM | | procedure are in the | | | | PST | | results section. | + +--------+ + + + | CBC W/MANUAL DIFF | Routin | 11/27/2018 | | Results for this | | | e | 4:05 PM | | procedure are in the | | | | PST | | results section. | + +--------+ + + + | PTH INTACT NO | Routin | 11/27/2018 | | Results for this | | CALCIUM | e | 4:05 PM | | procedure are in the | | | | PST | | results section. | + +--------+ + + + from Last 3 Months Results Iron panel (11/27/2018 4:05 PM) + +-------+ + + | Component | Value | Ref Range | Performed At | + +-------+ + + | IRON | 69.29 | 37 - 160 | | + +-------+ + + | IRON % SAT | 23.0 | 20 - 55 | | + +-------+ + + | TIBC | 301 | 245 - 400 | | + +-------+ + + + + | Specimen | + + | Blood | + + Protein / creatinine ratio, urine (11/27/2018 4:05 PM) + + + + + | Component | Value | Ref Range | Performed At | + + + + + | UR | 2,014.5 (A) | 0 - 150 | | | PROTEIN/CREATININE | | | | + + + + + + + | Specimen | + + | Urine - Urine, | | Unspecified Source | + + CBC w/manual diff (11/27/2018 4:05 PM) + + + + + | Component | Value | Ref Range | Performed At | + + + + + | WBC | 7.6 | 4.5 - 11.0 10^3/mL | | + + + + + | RBC | 3.53 (A) | 4.3 - 5.7 10^6/ L | | + + + + + | HGB | 10.5 (A) | 13.5 - 18.0 g/dL | | + + + + + | HCT | 31.3 (A) | 41 - 50 % | | + + + + + | MCV | 88 | 81 - 99 fL | | + + + + + | MCH | 30 | 27 - 33 pg | | + + + + + | MCHC | 34 | 30 - 36 g/dL | | + + + + + | RDW SD | | % | | + + + + + | PLT | 260 | 140 - 440 K/ L | | + + + + + | MPV | | fL | | + + + + + | NEUTROPHILS | | % | | + + + + + | LYMPHOCYTES | | % | | + + + + + | MONOCYTES | | % | | + + + + + | EOSINOPHILS | | % | | + + + + + | BASOPHILS | | % | | + + + + + | Neutrophils Absolute | | / L | | + + + + + | Lymphocytes Absolute | | / L | | + + + + + | Monocytes Absolute | | / L | | + + + + + | Eosinophils Absolute | | / L | | + + + + + | Basophils Absolute | | / L | | + + + + + + + | Specimen | + + | Blood | + + PTH intact no calcium (11/27/2018 4:05 PM) + + + + + | Component | Value | Ref Range | Performed At | + + + + + | PTH INTACT NO | 261.2 (A) | 15 - 65 pg/mL | | | CALCIUM | | | | + + + + + + + | Specimen | + + | Blood | + + Ferritin (11/27/2018 4:05 PM) + +-------+ + + | Component | Value | Ref Range | Performed At | + +-------+ + + | FERRITIN | 141.7 | 30 - 400 ng/mL | | + +-------+ + + + + | Specimen | + + | Blood | + + Renal function panel (11/27/2018 4:05 PM) + + + + + | Component | Value | Ref Range | Performed At | + + + + + | GLUCOSE | 113 (A) | 70 - 100 mg/dL | | + + + + + | BUN | 54 (A) | 6 - 23 mg/dL | | + + + + + | CREATININE | 3.49 (A) | 0.70 - 1.18 mg/dL | | + + + + + | PHOSPHORUS | 6.0 (A) | 2.5 - 5.0 mg/dL | | + + + + + | Albumin | 3.3 (A) | 3.5 - 5.0 | | + + + + + | SODIUM | 141 | 132 - 143 mmol/L | | + + + + + | POTASSIUM | 4.7 | 3.6 - 5.1 mmol/L | | + + + + + | CHLORIDE | 107 | 95 - 112 mmol/L | | + + + + + | CO2 | 18 (A) | 19 - 31 mmol/L | | + + + + + | ANION GAP AGAP | 20.7 | 7 - 21 mmol/L | | + + + + + | GFR MDRD Non Af Amer | | | | + + + + + | Phosphorus,Inorganic | 6.0 (A) | 2.5 - 5.0 | | + + + + + | BUN/CREAT | 15.5 | 6.0 - 28.6 | | + + + + + | CALCIUM | 8.0 (A) | 8.5 - 10.3 mg/dL | | + + + + + | EGFR | 17 (A) | 60 - 140 mg/dL | | + + + + + + + | Specimen | + + | Blood | + + from Last 3 Months Insurance + +--------+ +------+-------+ + | Payer | Benefi | Subscriber | Type | Phone | Address | | | t Plan | ID | | | | | | / | | | | | | | Group | | | | | + +--------+ +------+-------+ + | MEDICARE | MEDICA | [id number] | | | [address] | | | RE | | | | [place] [phone] | | | IP-OP | | | | | + +--------+ +------+-------+ + | MEDICAID | MEDICA | [id number] | | | [address] | | | ID | | | | [place], [place] | | | [place] | | | | [address] | + +--------+ +------+-------+ + + +--------+ +--------+ + + | Guarantor Name | Accoun | Relation to | Date | Phone | Billing Address | | | t Type | Patient | of | | | | | | | | | | + +--------+ +--------+ + + | PORFIRIO ZAVALA | Person | Self [birth year] | Home: | [address] [place] [address] | | | al/Fam | | [phone] | [phone] [place] | | | [place] | | | [phone] | [phone] | + +--------+ +--------+ + +
--- OUTSIDE RECORDS SUMMARY | ~2019-02-15 | XMS | Clinical Summary ---
Demographics + + + | Address | [address] | | | [place] [address] | + + + | Home Phone | | + + + | Preferred Language | Unknown | + + + | Marital Status | Single | + + + | Islam Affiliation | PRO | + + + | Race | White | + + + | Ethnic Group | Not or | + + + Author + + + | Author | [facility] | + + + | Organization | [facility] | + + + | Address | Unknown | + + + | Phone | Unavailable | + + + Support + + + + + | Name | Relationship | Address | Phone | + + + + + | DELGADO ZAVALA | [address] | [place] | | | | | [address] | | + + + + + Care Team Providers + +------+ + | Care Linderman Machine Operator Name | Role | Phone | + +------+ + | Rahul Silva MD | PP | Unavailable | + +------+ + Source Comments [place] is fully live on both [facility] and [facility] Allergies No Known Allergies Current Medications [...] every three hours as | | | 12/20 | | e | | 15 mg Oral Tablet | needed. | | | 10 | | | + + +-------+---------+------+------+-------+ | hydromorphone 2 mg | Take 2 mg by mouth | | | 05/1 | | Activ | | Oral Tablet | every two hours as | | | 20 | | e | | | needed. [...] | + + + + + | Pneumococcal (Adult) | | | | | (1 of 2 - PCV13) | 5 | | | + + + + + | Influenza (Flu) | | | | | vaccination (#1) | 8 | | | + + + + + Results Not on filefrom Last 3 Months
--- OUTSIDE RECORDS SUMMARY | ~2019-02-15 | XMS | Encounter Summary ---
Demographics + + + | Address | [address] | | | [place] [address] | + + + | Home Phone | | + + + | Preferred Language | Unknown | + + + | Marital Status | | + + + | Jehovah'S Witness Affiliation | 1077 | + + + | Race | Unknown | + + + | Ethnic Group | Unknown | + + + Author + + + | Author | [employer] | + + + | Organization | [facility] | + + + | Address | Unknown | + + + | Phone | Unavailable | + + + Support + + +---------+ + | Name | Relationship | Address | Phone | + + +---------+ + | Charlotte Andujar | ECON | Unknown | | + + +---------+ + Care Team Providers + +------+ + | Care Adjunct Professor Name | Role | Phone | + +------+ + | Rahul Silva MD | PCP | Unavailable | + +------+ + Encounter Details +--------+ + + + + | Date | Type | Department | Care Team | Description | +--------+ + + + + | 12/07/ | Telephone | [facility] | [place], | | | 2019 | | [address] | ARNAUD Abdi | | | | | [facility] [address] | | | | | | [place] [address] | | | | | | [phone] | | | +--------+ + + + [...] | | | | | | [address] [place], [place] | | | | | | [id number] | | | | | | | | +--------+---------+ + + + + +--------+ + + | Name | Priori | Associated Diagnoses | Order Schedule | | | ty | | | + +--------+ + + | Basic metabolic panel | Routin | FH: HTN | Expected: | | | e | (hypertension) | 01/11/2019, Expires: | | | | Hypomagnesemia CKD | 12/07/2019 | | | | (chronic kidney | | | | | disease), stage IV | | | | | Type 2 diabetes | | | | | mellitus with | | | | | diabetic | | | | | nephropathy, with | | | | | long-term current | | | | | use of insulin (HCC) | | | | | Hyperuricemia | | | | | Persistent | | | | | proteinuria Iron | | | | | deficiency | | + +--------+ + + | Renal function panel | Routin | FH: HTN | Expected: | | | e | (hypertension) | 03/07/2019, Expires: | | | | Hypomagnesemia CKD | 12/07/2019 | | | | (chronic kidney | | | | | disease), stage IV | | | | | Type 2 diabetes | | | | | mellitus with | | | | | diabetic | | | | | nephropathy, with | | | | | long-term current | | | | | use of insulin (HCC) | | | | | Hyperuricemia | | | | | Persistent | | | | | proteinuria Iron | | | | | deficiency | | + +--------+ + + | CBC W/Auto Diff (Reflex to | Routin | FH: HTN | Expected: | | Manual) | e | (hypertension) | 03/07/2019, Expires: | | | | Hypomagnesemia CKD | 12/07/2019 | | | | (chronic kidney | | | | | disease), stage IV | | | | | Type 2 diabetes | | | | | mellitus with | | | | | diabetic | | | | | nephropathy, with | | | | | long-term current | | | | | use of insulin (HCC) | | | | | Hyperuricemia | | | | | Persistent | | | | | proteinuria Iron | | | | | deficiency | | + +--------+ + + | Iron Panel W/UIBC | Routin | FH: HTN | Expected: | | | e | (hypertension) | 03/07/2019, Expires: | | | | Hypomagnesemia CKD | 12/07/2019 | | | | (chronic kidney | | | | | disease), stage IV | | | | | Type 2 diabetes | | | | | mellitus with | | | | | diabetic | | | | | nephropathy, with | | | | | long-term current | | | | | use of insulin (HCC) | | | | | Hyperuricemia | | | | | Persistent | | | | | proteinuria Iron | | | | | deficiency | | + +--------+ + + | Ferritin | Routin | FH: HTN | Expected: | | | e | (hypertension) | 03/07/2019, Expires: | | | | Hypomagnesemia CKD | 12/07/2019 | | | | (chronic kidney | | | | | disease), stage IV | | | | | Type 2 diabetes | | | | | mellitus with | | | | | diabetic | | | | | nephropathy, with | | | | | long-term current | | | | | use of insulin ([facility]) | | | | | Hyperuricemia | | | | | Persistent | | | | | proteinuria Iron | | | | | deficiency | | + +--------+ + + | PTH intact no calcium | Routin | FH: HTN | Expected: | | | e | (hypertension) | 03/07/2019, Expires: | | | | Hypomagnesemia CKD | 12/07/2019 | | | | (chronic kidney | | | | | disease), stage IV | | | | | Type 2 diabetes | | | | | mellitus with | | | | | diabetic | | | | | nephropathy, with | | | | | long-term current | | | | | use of insulin ([facility]) | | | | | Hyperuricemia | | | | | Persistent | | | | | proteinuria Iron | | | | | deficiency | | + +--------+ + + | Urinalysis (reflex to micro) | Routin | FH: HTN | Expected: | | | e | (hypertension) | 03/07/2019, Expires: | | | | Hypomagnesemia CKD | 12/07/2019 | | | | (chronic kidney | | | | | disease), stage IV | | | | | Type 2 diabetes | | | | | mellitus with | | | | | diabetic | | | | | nephropathy, with | | | | | long-term current | | | | | use of insulin ([facility]) | | | | | Hyperuricemia | | | | | Persistent | | | | | proteinuria Iron | | | | | deficiency | | + +--------+ + + | Protein / creatinine ratio, urine | Routin | FH: HTN | Expected: | | | e | (hypertension) | 03/07/2019, Expires: | | | | Hypomagnesemia CKD | 12/07/2019 | | | | (chronic kidney | | | | | disease), stage IV | | | | | Type 2 diabetes | | | | | mellitus with | | | | | diabetic | | | | | nephropathy, with | | | | | long-term current | | | | | use of insulin ([facility]) | | | | | Hyperuricemia | | | | | Persistent | | | | | proteinuria Iron | | | | | deficiency | | + +--------+ + + as of this encounter Visit Diagnoses + + | Diagnosis | + + | FH: HTN (hypertension) - Primary | + + | Family history of other cardiovascular diseases | + + | Hypomagnesemia | + + | Disorders of magnesium metabolism | + + | CKD (chronic kidney disease), stage IV | + + | Type 2 diabetes mellitus with diabetic nephropathy, with long-term current use of | | insulin (HCC) | + + | Hyperuricemia | + + | Other abnormal blood chemistry | + + | Persistent proteinuria | + + | Proteinuria | + + | Iron deficiency | + + | Other disorders of iron metabolism | + +"
--- OUTSIDE RECORDS SUMMARY | ~2019-02-15 | XMS | Encounter Summary ---
Demographics + + + | Address | [address] | | | [place] [address] | + + + | Home Phone | | + + + | Preferred Language | Unknown | + + + | Marital Status | | + + + | Synagogue Affiliation | 1077 | + + + | Race | Unknown | + + + | Ethnic Group | Unknown | + + + Author + + + | Author | [employer] | + + + | Organization | [facility] | + + + | Address | Unknown | + + + | Phone | Unavailable | + + + Support + + +---------+ + | Name | Relationship | Address | Phone | + + +---------+ + | Charlotte Andujar | ECON | Unknown | | + + +---------+ + Care Team Providers + +------+ + | Care Assistant To The Director Name | Role | Phone | [...] | | | | | [facility] [address] | | | | | | [place] [address] | | | | | | [phone] | | | +--------+ + + + [...] | | | | | | [address] [place], [place] | | | | | | [id number] | | | | | | | [...] | | | | use of insulin ([facility]) | | | | | Hyperuricemia | [...] | | | | use of insulin ([facility]) | | | | | Hyperuricemia | [...] | | | | use of insulin ([facility]) | | | | | Hyperuricemia | [...] | | | | use of insulin ([facility]) | | | | | Hyperuricemia | [...]
--- OUTSIDE RECORDS SUMMARY | ~2019-02-15 | XMS | Clinical Summary ---
Demographics + + + | Address | [address] | | | [place] [address] | + + + | Home Phone | | + + + | Preferred Language | Unknown | + + + | Marital Status | | + + + | Advent Affiliation | 1077 | + + + | Race | Unknown | + + + | Ethnic Group | Unknown | + + + Author + + + | Author | [employer] | + + + | Organization | [facility] | + + + | Address | Unknown | + + + | Phone | Unavailable | + + + Support + + +---------+ + | Name | Relationship | Address | Phone | + + +---------+ + | Charlotte Zavala | ECON | Unknown | | + + +---------+ + Care Team Providers + +------+ + | Care Psychology Tech Name | Role | Phone | [...] Last Assessment & Plan: Controlled on current [id number] yr | | old male with COPD, [...] | | | | | | (severe) ([facility]); | | | | | [...] | | | | | | ([facility]); Secondary | | | | | | hyperparathyroidism | | | | | | ([facility]); Vitamin D | | | [...] | | | | | | [address] [place] [place] | | | | | | [address] | | | | | | | [...] +------+-------+ + | MEDICARE | MEDICA | [id number] | | | [address] | | | RE | | | | [place] [address] | | | IP-OP | | | | | + +--------+ +------+-------+ + | MEDICAID | MEDICA | [id number] | | | [address] | | | ID | | | | [place], [place] | | | [place] | | | | [address] | + +--------+ +------+-------+ + + +--------+ +--------+ + + | Guarantor Name | Accoun | Relation to | Date | Phone | Billing Address | | | t Type | Patient | of | | | | | | | | | | + +--------+ +--------+ + + | PORFIRIO ZAVALA | Person | Self | [birth year] | Home: | [address] [place] [address] | | | al/Fam | | 1940 | [phone] | [place] | | | [place]ula | | | [address] | [phone] | + +--------+ +--------+ + +
--- OUTSIDE RECORDS SUMMARY | ~2019-02-15 | XMS | Clinical Summary ---
Demographics + + + | Address | [address] | | | [place] [address] | + + + | Home Phone [...] Providers + +------+ + | Care Dry Food Products Mixer Name | Role | Phone | [...] | | Activ | | (VITAMIN D-3) 10074 | mouth Every 3 | | | [...] +---------+ | MEDICAID [place] | MEDICA | [id number] | Medica | [phone] | | [...] | chula | | | 8711 | [phone] | + +--------+ +--------+ + +
--- OUTSIDE RECORDS SUMMARY | ~2019-02-15 | XMS | Encounter Summary ---
Demographics + + + | Address | [address] | | | [place] [address] | + + + | Home Phone | | + + + | Preferred Language | Unknown | + + + | Marital Status | | + + + | Buddhism Affiliation | 1077 | + + + | Race | Unknown | + + + | Ethnic Group | Unknown | + + + Author + + + | Author | [employer] | + + + | Organization | [facility] | + + + | Address | Unknown | + + + | Phone | Unavailable | + + + Support + + +---------+ + | Name | Relationship | Address | Phone | + + +---------+ + | Charlotte Andujar | ECON | Unknown | | + + +---------+ + Care Team Providers + +------+ + | Care Enterprise Solutions Architect Name | Role | Phone | + +------+ + | Rahul Silva MD | PCP | Unavailable | + +------+ + Reason for Visit +--------+ + | Reason | Comments | +--------+ + | Other | Labs | +--------+ + Encounter Details +--------+ + + + + | Date | Type | Department | Care Team | Description | +--------+ + + + + | 11/30/ | Documentati | [facility] | Alfred, | Other (Labs) | | 2017 | on Only | [address] | ARNAUD [address] | | | | | [address] | | | | | | [place] [address] | | | | | | [phone] | | | +--------+ + + + [...] | | | | | | [address] [place], [place] | | | | | | [address] | | | | | | | | +--------+---------+ + + + as of this encounter Procedures + +--------+ [...] section. | + +--------+ + + + in this encounter Results Protein / creatinine ratio, urine (11/27/2018 4:05 [...] | | Unspecified Source | + + Iron panel (11/27/2018 4:05 PM) + +-------+ [...] + | Blood | + + CBC w/manual diff (11/27/2018 [...] + + | Blood | + + in this encounter Visit Diagnoses Not on filein this encounter"
--- OUTSIDE RECORDS SUMMARY | ~2019-02-15 | XMS | Encounter Summary ---
Demographics + + + | Address | [address] | | | [place] [address] | + + + | Home Phone | | + + + | Preferred Language | Unknown | + + + | Marital Status | | + + + | Druze Affiliation | 1077 | + + + | Race | Unknown | + + + | Ethnic Group | Unknown | + + + Author + + + | Author | [employer] | + + + | Organization | [facility] | + + + | Address | Unknown | + + + | Phone | Unavailable | + + + Support + + +---------+ + | Name | Relationship | Address | Phone | + + +---------+ + | Charlotte Andujar | ECON | Unknown | | + + +---------+ + Care Team Providers + +------+ + | Care Beehive Kiln Charcoal Burner Name | Role | Phone | + [...] Description | +--------+--------+ + + + | 11/25/ | Refill | [facility] | Sandy Capellan | Edema of right lower | | 2017 | | [address] | M, RN | extremity (Primary | | | | [address] | | Dx); FH: HTN | | | | [place] [address] | | (hypertension); CKD | | | | [phone] | | (chronic kidney | | | | | | disease), stage IV | +--------+--------+ + + + Social History [...] | | | | | | [address] [place] | | | | | | [id number] | | | | | | | | +--------+---------+ + + + as of this encounter Visit Diagnoses + + | Diagnosis | + + | Edema of right lower extremity - Primary | + + | Edema | + + | FH: HTN (hypertension) | + + | Family history of other cardiovascular diseases | + + | CKD (chronic kidney disease), stage IV | + +"
--- OUTSIDE RECORDS SUMMARY | ~2019-02-15 | XMS | Encounter Summary ---
Demographics + + + | Address | [address] | | | [place] [address] | + + + | Home Phone | | + + + | Preferred Language | Unknown | + + + | Marital Status | | + + + | Moravian Affiliation | 1077 | + + + | Race | Unknown | + + + | Ethnic Group | Unknown | + + + Author + + + | Author | [employer] | + + + | Organization | [facility] | + + + | Address | Unknown | + + + | Phone | Unavailable | + + + Support + + +---------+ + | Name | Relationship | Address | Phone | + + +---------+ + | Charlotte Andujar | ECON | Unknown | | + + +---------+ + Care Team Providers + +------+ + | Care Block Bolter Mule Operator Name | Role | Phone | [...] | | [address] | [address] [place], [place] | (Primary Dx); Edema | | | | [place] [address] | [address] | of right lower | | | | [phone] | | extremity; Anemia of | | | | | | chronic renal | | | | | | failure, stage 4 | | | | | | (severe) ([facility]); | | | | | | Electrolyte [...] insulin | | | | | | ([facility]); Secondary | | | | | | [...] studies, Ferritin, intact PTH, rU/A, Urine total jqswhfh-zq-rj eatinine ratio done before he comes back in 3 months. in this encounter Progress Notes Farrukh Acuna MD - 12/07/2018 12:00 PM PSTFormatting of this note may be different from richard fragoso original. Patient Active Problem List Diagnosis CKD (chronic kidney disease), stage IV Type 2 diabetes mellitus with diabetic nephropathy, with long-term current use of insul in ([facility]) FH: HTN (hypertension) Edema of right [...] 10/2016 with severe pneumonia, severe ZEKE; needed TOBACCO PREVENTION HEALTH EDUCATOR for ~5 weeks b efore renal function recovery mid 12/2016. He was admitted to [facility] for 3 nights in July [...] LABIRON 23.0 11/27/2018 LABPROT 2,014.5 (A) 11/27/2018 [id number] 30 10/08/2018 Assessment: Mr. Andujar is a 78 y.o. male patient with stage IV CKD on a background of diabetes & hypert ension and recent hospitalization for C-diff and hehydration. The most likely pathology here is that of diabetic nephropathy +/- hypertensive nephrosclerosis/arteriolosclerosis. He was hospitalized in 10/2016 with severe pneumonia, severe ZEKE; needed TOBACCO PREVENTION HEALTH EDUCATOR for ~5 weeks b efore renal function [...] studies, Ferritin, intact PTH, rU/A, Urine total vhhnqsl-ln-sc eatinine ratio done before he comes back [...] | | | | | | [address] [place], [place] | | | | | | [...]
--- OUTSIDE RECORDS SUMMARY | ~2019-02-15 | XMS | Encounter Summary ---
Demographics + + + | Address | [address] | | | [place] [address] | + + + | Home Phone | | + + + | Preferred Language | Unknown | + + + | Marital Status | | + + + | Mosque Affiliation | 1077 | + + + | Race | Unknown | + + + | Ethnic Group | Unknown | + + + Author + + + | Author | [employer] | + + + | Organization | [facility] | + + + | Address | Unknown | + + + | Phone | Unavailable | + + + Support + + +---------+ + | Name | Relationship | Address | Phone | + + +---------+ + | Charlotte Andujar | ECON | Unknown | | + + +---------+ + Care Team Providers + +------+ + | Care Certified Court/Medical Interpreter Name | Role | Phone | [...] | | | | | [place] [address] | | | | | | [phone] | | | +--------+ + + + [...] | | | | | | [address] [place], [place] | | | | | | [address] | | | | | | | [...]
--- OUTSIDE RECORDS SUMMARY | ~2019-02-15 | XMS | Clinical Summary ---
Demographics + + + | Address | [address] | | | [place] [address] | + + + | Home Phone [...] + + + | Author | [facility] | + + + | Organization | [facility] | + + + | Address | Unknown | + + + | Phone | Unavailable | + + + Support + + + + + | Name | Relationship | Address | Phone | + + + + + | DELGADO ZAVALA | [address]ER[address] | [place] | | | | | [address] | | + + + + + Care Team Providers + +------+ + | Care Surgical Scrub Technician Name | Role | Phone | + +------+ + | Rahul Silva MD | PP | Unavailable | + +------+ + Source Comments DAKOTA is fully live on both [facility] and [facility] InPatient.[facility] Allergies No Known Allergies Current Medications [...]
--- OUTSIDE RECORDS SUMMARY | ~2019-02-15 | XMS | Encounter Summary ---
Demographics + + + | Address | [address] | | | [place] [address] | + + + | Home Phone | | + + + | Preferred Language | Unknown | + + + | Marital Status | | + + + | Mormon Affiliation | 1077 | + + + | Race | Unknown | + + + | Ethnic Group | Unknown | + + + Author + + + | Author | [employer] | + + + | Organization | [facility] [place] [facility] | + + + | Address | Unknown | + + + | Phone | Unavailable | + + + Support + + +---------+ + | Name | Relationship | Address | Phone | + + +---------+ + | Charlotte Andujar | ECON | Unknown | | + + +---------+ + Care Team Providers + +------+ + | Care Photographer Portrait Name | Role | Phone | + [...] Dx); FH: HTN | | | | [place] [address] | | (hypertension); CKD | | | | [phone] | | (chronic kidney | | | [...] | | | | | | [address] [place] | | | | | | [id number] | | | | | | | [...]
--- OUTSIDE RECORDS SUMMARY | ~2019-02-15 | XMS | Encounter Summary ---
Demographics + + + | Address | [address] | | | [place] [address] | + + + | Home Phone | | + + + | Preferred Language | Unknown | + + + | Marital Status | | + + + | Jew Affiliation | 1077 | + + + | Race | Unknown | + + + | Ethnic Group | Unknown | + + + Author + + + | Author | [facility] [facility] [place] | + + + | Organization | [facility] | + + + | Address | Unknown | + + + | Phone | Unavailable | + + + Support + + +---------+ + | Name | Relationship | Address | Phone | + + +---------+ + | Charlotte Andujar | ECON | Unknown | | + + +---------+ + Care Team Providers + +------+ + | Care Payroll Representative Name | Role | Phone | [...] | | | | | [place] [address] | | | | | | [phone] | | | +--------+ + + + [...] | | | | | | [address] [place], [place] | | | | | | [address] | | | | | | | [...]
--- OUTSIDE RECORDS SUMMARY | ~2019-02-15 | XMS | Clinical Summary ---
Demographics + + + | Address | [address] | | | [place] [address] | + + + | Home Phone | | + + + | Preferred Language | Unknown | + + + | Marital Status | | + + + | Yazdanism Affiliation | 1077 | + + + | Race | Unknown | + + + | Ethnic Group | Unknown | + + + Author + + + | Author | [facility] [employer] | + + + | Organization | [facility] | + + + | Address | Unknown | + + + | Phone | Unavailable | + + + Support + + +---------+ + | Name | Relationship | Address | Phone | + + +---------+ + | Charlotte Zavala | ECON | Unknown | | + + +---------+ + Care Team Providers + +------+ + | Care Brush Polisher Name | Role | Phone | + [...] Last Assessment & Plan: Controlled on current [id number] yr | | old male with COPD, [...] | | | | | | (severe) ([facility]); | | | | | | [...] insulin | | | | | | ([facility]); Secondary | | | | | | hyperparathyroidism | | | | | | ([facility]); Vitamin D | | | | | [...] | | | | | | [address] [place] | | | | | | [address] | | | | | | | [...] +------+-------+ + | MEDICARE | MEDICA | [id number] | | | [address] | | | RE | | | | [place] [address] | | | IP-OP | | | | | + +--------+ +------+-------+ + | MEDICAID | MEDICA | [id number] | | | [address] | | | ID | | | | [place], [place] | | | [place] | | | | [address] | + +--------+ +------+-------+ + + +--------+ +--------+ + + | Guarantor Name | Accoun | Relation to | Date | Phone | Billing Address | | | t Type | Patient | of | | | | | | | | | | + +--------+ +--------+ + + | PORFIRIO ZAVALA | Person | Self | [birth year] | Home: | [address] [place] [address] | | | al/Fam | | 1940 | [phone] | [place] | | | [place] | | | [address] | [phone] | + +--------+ +--------+ + +
--- OUTSIDE RECORDS SUMMARY | ~2019-02-15 | XMS | Encounter Summary ---
Demographics + + + | Address | [address] | | | [place] [address] | + + + | Home Phone | | + + + | Preferred Language | Unknown | + + + | Marital Status | | + + + | Cheondoism Affiliation | 1077 | + + + | Race | Unknown | + + + | Ethnic Group | Unknown | + + + Author + + + | Author | [employer] | + + + | Organization | [facility] | + + + | Address | Unknown | + + + | Phone | Unavailable | + + + Support + + +---------+ + | Name | Relationship | Address | Phone | + + +---------+ + | Charlotte Andujar | ECON | Unknown | | + + +---------+ + Care Team Providers + +------+ + | Care Certified Teacher Assistant Name | Role | Phone [...] | | | | | [address] [facility] [address] | | | | | | [place] [address] | | | | | | [phone] | | | +--------+ + + + [...] | | | | | | [address] [place], [place] | | | | | | [address] | | | | | | | [...] | | | | use of insulin ([facility]) | | | | | Hyperuricemia | [...] | | | | use of insulin ([facility]) | | | | | Hyperuricemia | [...] | | | | use of insulin ([facility]) | | | | | Hyperuricemia | [...] | | | | use of insulin ([facility]) | | | | | Hyperuricemia | [...]
--- OUTSIDE RECORDS SUMMARY | ~2019-02-15 | XMS | Encounter Summary ---
Demographics + + + | Address | [address] | | | [place] [address] | + + + | Home Phone | | + + + | Preferred Language | Unknown | + + + | Marital Status | | + + + | Latter Day Affiliation | 1077 | + + + | Race | Unknown | + + + | Ethnic Group | Unknown | + + + Author + + + | Author | [employer] | + + + | Organization | [facility] | + + + | Address | Unknown | + + + | Phone | Unavailable | + + + Support + + +---------+ + | Name | Relationship | Address | Phone | + + +---------+ + | Charlotte Andujar | ECON | Unknown | | + + +---------+ + Care Team Providers + +------+ + | Care Bellman Name | Role | Phone | + [...] | | [address] | [address] [place], [place] | (Primary Dx); Edema | | | | [place] [address] | [address] | of right lower | | | | [phone] | | extremity; Anemia of | | | | | | chronic renal | | | | | | failure, stage 4 | | | | | | (severe) ([facility]); | | | | | [...] | ([facility]); Secondary | | | | [...] studies, Ferritin, intact PTH, rU/A, Urine total bbmmhyi-ue-jx eatinine ratio done before he comes back in 3 months. in this encounter Progress Notes Farrukh Acuna MD - 12/07/2018 12:00 PM PSTFormatting of this note may be different from richard fragoso original. Patient Active Problem List Diagnosis CKD (chronic kidney disease), stage IV Type 2 diabetes mellitus with diabetic nephropathy, with long-term current use of insul in ([facility]) FH: HTN (hypertension) Edema of [...] 10/2016 with severe pneumonia, severe ZEKE; needed HOSTESS CASHIER for ~5 weeks b efore renal function recovery mid 12/2016. He was admitted to [facility] for 3 nights in July [...] LABIRON 23.0 11/27/2018 LABPROT 2,014.5 (A) 11/27/2018 [id number] 30 10/08/2018 Assessment: Mr. Andujar is a 78 y.o. male patient with stage IV CKD on a background of diabetes & hypert ension and recent hospitalization for C-diff and hehydration. The most likely pathology here is that of diabetic nephropathy +/- hypertensive nephrosclerosis/arteriolosclerosis. He was hospitalized in 10/2016 with severe pneumonia, severe ZEKE; needed HOSTESS CASHIER for ~5 weeks b efore renal function [...] studies, Ferritin, intact PTH, rU/A, Urine total rnpmzdk-tj-xc eatinine ratio done before he comes back [...] | | | | | | [address] [place], [place] | | | | | | [...]
--- OUTSIDE RECORDS SUMMARY | ~2019-02-15 | XMS | Encounter Summary ---
Demographics + + + | Address | [address] | | | [place] [address] | + + + | Home Phone | | + + + | Preferred Language | Unknown | + + + | Marital Status | | + + + | Scientology Affiliation | 1077 | + + + | Race | Unknown | + + + | Ethnic Group | Unknown | + + + Author + + + | Author | [employer] | + + + | Organization | [facility] | + + + | Address | Unknown | + + + | Phone | Unavailable | + + + Support + + +---------+ + | Name | Relationship | Address | Phone | + + +---------+ + | Charlotte Andujar | ECON | Unknown | | + + +---------+ + Care Team Providers + +------+ + | Care Landfill Grader Name | Role | Phone | [...] Dx); FH: HTN | | | | [place] [address] | | (hypertension); CKD | | | | [phone] | | (chronic kidney | | | [...] | | | | | | [address] [place] | | | | | | [id number] | | | | | | | [...]
--- OUTSIDE RECORDS SUMMARY | ~2019-02-15 | XMS | Clinical Summary ---
Demographics + + + | Address | [address] | | | [place] [address] | + + + | Home Phone [...] + + + | Author | [facility] | + + + | Organization | [facility] | + + + | Address | Unknown | + + + | Phone | Unavailable | + + + Support + + + + + | Name | Relationship | Address | Phone | + + + + + | DELGADO ZAVALA | [address] | [place] | | | | | [address] | | + + + + + Care Team Providers + +------+ + | Care Rope Cutter Name | Role | Phone | + +------+ + | Rahul Silva MD | PP | Unavailable | + +------+ + Source Comments DAKOTA is fully live on both [facility] and [facility] InPatient.[facility] Allergies No Known Allergies Current Medications [...]
--- OUTSIDE RECORDS SUMMARY | ~2019-02-15 | XMS | Clinical Summary ---
Demographics + + + | Address | [address] | | | [place] [address] | + + + | Home Phone [...] Providers + +------+ + | Care General Lot Attendant Name | Role | Phone | [...] | | Activ | | (VITAMIN D-3) [address] | mouth Every 3 | | | [...] +---------+ | [place]ICAID [place] | MEDICA | [id number] | Medica | [phone] | | | [...] [place] | al/Scott | | 1940 | [phone] | [place] | | | [place] | | | [address] | [phone] | + +--------+ +--------+ + +
[~2019-02-15 22:20] MED LIST changes: +KEFLEX500 MG PO; +ONDANSETRON ODT4 MG PO; -ZOFRAN ODT4 MG PO
--- OUTSIDE RECORDS SUMMARY | 2019-02-15 22:24 | XMS ---
PreManage Notification: PORFIRIO ZAVALA Security Process Description Writer Events No recent Security Events currently on file CRITERIA MET - Group Notification - [facility] Has [facility] Guidelines - [facility] CARE PROVIDERS Phylicia Vazquez Finishing Machine Operator/Rat Poisoner 08/31/2018-Current PHONE: [phone] Herminia Rivera Finishing Machine Operator/Rat Poisoner 08/31/2018-Current PHONE: [phone] Herminia Rivera Primary Care 08/31/2018-Current PHONE: [phone] Domenic Gutiérrez Case or Debt Counselor Current PHONE: [phone] HARDIK Van Primary Care 08/31/2015-Rodney COYNE PHONE: Unknown Agapito has no Care Guidelines for this patient. 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 - Patient had last seen his PCP Dr Coyne on 05/06/18. - MA for Dr Coyne will provide ED report to Dr Acuna for further review. This patient has had 5 or more Emergency Department visits in the last 12 months.\T\nbsp; Patient requires education on the scope and purpose of the ED as an acute care provider not a Primary Care Provider and should not be utilized for chronic conditions.\T\nbsp; If patient returns to ED please contact Community Health WorkerLizzy at [phone]. These are guidelines and the provider should exercise clinical judgment when providing care. 07/25/2017 [facility] HISTORY: COPD, DMII, HTN, CVA X3, KIDNEY FAIL STAGE 3 WITH SHORT TERM DIALYSIS, CPAP USE SURGERY HISTORY: GILBERT ESPINAL, PANCRETIC TUMOR REMOVAL EAugustina VISIT COUNT (12 MO.) 2 JONY Amado TOTAL 2 NOTE: Visits indicate total known visits. ED/UCC VISIT TRACKING (12 MO.) 02/15/2019 22:21 [facility] [place] TYPE: Emergency COMPLAINT: - CONSTIPATED 05/27/2018 19:50 [facility]ON[facility] [place] TYPE: Emergency COMPLAINT: - BLOOD PRESSURE PROBLEM DIAGNOSES: - Other [facility] (current) drug therapy - Unspecified abdominal pain - Nicotine dependence, unspecified, uncomplicated - Urinary tract infection, site not specified - senior care (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 of insulin - Chronic kidney disease, stage 4 (severe) - Chronic obstructive pulmonary disease, unspecified - Hypertensive chronic kidney disease with stage 1 through stage 4 chronic kidney disease, or unspecified chronic kidney disease - Type 2 diabetes mellitus without complications INPATIENT VISIT TRACKING (12 MO.) No inpatient visits to display in this time frame [email or web address]
[2019-02-15] MEDS ORDERED: SODIUM BICARBO650 MG PO (22:47)
[2019-02-15] MEDS ORDERED: DOXEPIN HCL10 MG PO (22:48)
[2019-02-15] MEDS ORDERED: GABAPENTIN100 MG PO (22:49)
--- NOTE | 2019-02-16 03:07 | NUR ---
PATIENT PUSHED FROM ED TO ROOM ON MEDICAL FLOOR BY THIS RN. PATIENT WAS ABLE TO SELF TRANSFER FROM HIS OWN WHEELCHAIR TO HOSPITAL BED. ADMISSION COMPLETED. MEDICATIONS GIVEN PER ORDER. ASSESMENT COMPLETED. ALL QUESTIONS ANSWERED. PATIENT ORIENTED TO ROOM, FLOOR, AND CALL LIGHT. PATIENT VERBALIZES UNDERSTANDING. ICE WATER PROVIDED AND WARM BLANKET. NO FURTHER NEEDS NOTED. CALL LIGHT IN REACH.
--- NOTE | 2019-02-16 03:15 | NUR ---
PATIENT ASSISTED TO THE RESTROOM A SBA. PATIENT WAS ABLE TO SELF TRANSFER TO HOME WHEEL CHAIR. PATIENT HAD LARGE LOOSE BM. PATIENT IS NOW BACK IN BED RESTING. BED ALARM ON FOR SAFETY. CALL LIGHT IN REACH.
--- NOTE | 2019-02-16 03:59 | NUR ---
PATIENT UP TO THE RESTROOM. PATIENT HAD ANOTHER LARGE LOOSE BM. PATIENT WAS ALSO ABLE TO VOID. PATIENT IS NOW BACK IN BED RESTING. PATIENT HAS ONLY TAKEN 2 DRINKS OF THE MAG CITRATE. PATIENT ENCOURAGE TO DRINK THE MAG CITRATE. PATIENT STATED "I DONT THINK I CAN". PATIENT EDUCATED ON IMPORTANCE OF MEDICATION. PATIENT VERBALIZES UNDERSTANDING. CALL LIGHT IN REACH.
--- NOTE | 2019-02-16 05:34 | NUR ---
PATIENT IS RESTING IN BED. PATIENTS VITALS TAKEN AND RECORDED. PATIENTS INTAKE AND OUPUT RECORDED. PATIENT CONTINUES TO REFUSE TO DRINK MAG CITRATE. PATIENT EDUCATED ON THE IMPORTNACE OF TAKING THE MEDICATION FOR CONSTIPATION. PATIENT STATED "IT GIVES ME HEARTBURN". OFFERED TO GET PATIENT MEDICATION FOR HEARTBURN. EDUCATED PATIENT ON IMPORTANCE OF TAKING MAG CITRATE AGAIN FOR HIS CONSTIPATION. PATIENT STATED "I AM NOT CONSTIPATED". EDUCATED PATIENT THAT HE WAS ADMITTED FOR CONSTIPATION. PATIENT STATED "I AM NOT CONSTIPATED, WILL YOU LEAVE ME ALONE". LEFT MAG CITRATE ON BEDSIDE TABLE. NO FURTHER NEEDS NOTED. CALL LIGHT IN REACH.
--- NOTE | 2019-02-16 05:39 | NUR ---
PATIENT IS ON A CLEAR LIQUID DIET. PATIENT DENIES ANY PAIN OR NAUSEA. PATIENT IS A SBA INTO HOME WHEELCHAIR. PATIENT HAS LEFT AKA. PATIENT IS AAOX3. PATIENT HAS REFUSED INTERVENTIONS ORDERED BY . IV INFUSING. PATIENT IS ON RA.
--- NOTE | 2019-02-16 07:10 | NUR ---
BEDSIDE HANDOFF REPORT RECEIVED FROM FOAM DISPENSER RN. PT SLEEPING, LEFT UNDISTURBED.
--- NOTE | 2019-02-16 08:30 | NUR ---
PATIENT WAS CALLING OUT FOR HELP HE COULDN'T FIND HIS CALL LIGHT. SO I GOT HIS WHEELCHAIR HE TRASFERED INTO HIS WHEELCHAIR. I PUSHED THE IV POLE INTO THE BATHROOM. AND WAITED UNTIL HE WAS FINISHED THAN HE TRASFERED FROM HIS WHEELCHAIR TO THE CHAIR FOR BREAKFAST.
--- NOTE | 2019-02-16 08:30 | NUR ---
PT COMPLAINT OF PAIN, 10/10 TO LEFT ABOVE KNEE AMPUTATION STUMP, GIVEN 0.4 MG IV DILAUDID. PT ON ROOM AIR, LUNG SOUNDS CLEAR WITH DIMINIHSED BASES. PT TOLERATIGN CLEAR LIQUID DIET. DISCUSSED PLAN FOR MIRALAX THIS AM, PT REFUSING TO TAKE ANY LAXATIVES, PT EDUCATED ON PURPOSE OF LAXATIVES FOR CURRENT ILLNESS, CONTINUES TO REFUSE. IV FLAGYL INFUSING. BOWEL TONES ACTIVE, SEVERAL LOOSE STOOLS OVER NIGHT. PT RIGHT LOWER LEG WIHTOUT EDEMA, CMS INTACT. PT SITITNG IN WHEEL CHAIR. PT DENIES OTHER NEEDS AT THIS TIME.
--- NOTE | 2019-02-16 08:34 | NUR ---
PATIENT ASKS FOR PAIN MEDICINE. RN NOTIFIED. PATIENT ASKS FOR SOME CREAM FOR HIS COFFEE BUT WE CANT'T PROVIDED IT BECAUSE HE IS IN A CLEAR LIQUID DIET. CALL LIGHT WITHIN REACH. NO OTHER NEEDS AT THIS TIME
--- NOTE | 2019-02-16 08:45 | NUR ---
DR. MAKI CALLED AND NOTIFIED THAT PT CONTINUES TO REFUSE MIRALAX. DISCUSSED TREATMENT PLAN. ALLOW PT TO LEAVE AMA IF PT WANTS TO GO HOME, OTHERWISE DR. MAKI TO SEE PT THIS MORNING.
--- NOTE | 2019-02-16 09:06 | NUR ---
PATIENT SITTING UP IN WHEELCHAIR. PARTIAL BEDBATH DONE. PATIENT USING A CLEAN GOWN AND PANTS. VITAL SIGNS AND I&O DONE. CALL LIGHT WITHIN REACH. NO OTHER NEEDS AT THIS TIME
--- NOTE | 2019-02-16 09:25 | NUR ---
DISCUSSED WITH PT OPTION TO LEAVE AMA, FURTHER EDUCATED ON PURPOSE OF MIRALAX RELATED TO CURRENT ILLNESS. PT STATES HE WANTS TO WAIT FOR HIS DAUGHTER TO COME. PT DENIES OTHER NEEDS AT THIS TIME.
--- NOTE | 2019-02-16 10:32 | NUR ---
PT WITH HX OF DIABEES, BLOOD GLUCOSE 143.
--- NOTE | 2019-02-16 12:45 | NUR ---
PT RESTING IN BED. PT PROVIDED WITH ORDERED MEDS. PT RATING PAIN 10/10 GIVEN 1 TAB NORCO PER ORDER. PT ENCOURAGED TO DRINK MIRALAX, HAS DRANK APPROXIMATELY 50 ML.. NO ACUTE CHANGES. PT DENIES OTHER NEEDS AT THIS TIME.
[2019-02-16] MEDS ORDERED: TORSEMIDE20 MG PO (14:08)
--- NOTE | 2019-02-16 14:09 | NUR ---
PATIENT RESTING IN BED. VITAL SIGNS AND I&O DONE. CALL LIGHT WITHIN REACH. NO OTHER NEEDS AT THIS TIME
--- NOTE | 2019-02-16 14:47 | NUR ---
PATIENT CALLS TO USE BATHROOM. PATIENT IN BED. PATIENT GOES TO THE BATHROOM USING A WHEELCHAIR. ONE PERSON ASSISTING.
--- NOTE | 2019-02-16 15:18 | NUR ---
PT SITTING IN WHEEL CHAIR. IV FLAGYL INFUSING. PT RATING PAIN 10/10, GIVEN 15 MG OXYCODONE. PT ENCOURAGED TO DRINK MIRALAX, PT STATES HE LIKES THE LEMONDADE, ORDERED FROM DIETARY. PT DENIES OTHER NEEDS AT THIS TIME.
[2019-02-16] MEDS ORDERED: SLOW-MAG71.5 MG PO (15:47)
[2019-02-16] MEDS ORDERED: ASPIR 8181 MG PO (15:47)
[2019-02-16] MEDS ORDERED: CALCITRIOL0.25 MCG PO (15:48)
[2019-02-16] MEDS ORDERED: VITAMIN D32000 UNI1 PO (15:48)
--- NOTE | 2019-02-16 15:49 | NUR ---
MED REC COMPLETE
--- NOTE | 2019-02-16 16:02 | NUR ---
PT SLEEPING. IV CEFEPIME INFUSION RESUMED.
--- NOTE | 2019-02-16 16:14 | NUR ---
DISCUSSED WITH PT REASON WHY HE IS IN THE HOSPITAL AND HE STATES UNDERSTANDING ALSO STATES THAT HE UNDERSTANDS HIS MEDS AND WHY HE TAKES THEM. STATES THAT WHEN HE IS DC'D FROM HERE HE WILL BE RETURNING HOME. DENIES NEEDS AT THIS TIME.
--- NOTE | 2019-02-16 16:26 | CONS ---
[facility] [address] [place], [place] [address] Signed DATE OF CONSULTATION: 02/16/2019 CHIEF COMPLAINT: Constipation. HISTORY OF PRESENT ILLNESS: Porfirio is a 78-year-old gentleman, whom I have actually met previously in my office. He happens to live with his daughter. He has significant medical issues as listed below. He said he did not have a bowel movement for 3 days, so he tried some milk of magnesia without success. He then tried to give himself an enema and he thinks he poked a hole in his rectum. He came to emergency room last night for evaluation. On digital rectal exam, he had stool in the rectal vault. His white count was elevated and so a CT scan was performed, and he has some chronic changes in the bottom of his lungs and abdomen, but he does have stool in the rectum and some air and the perirectal fat down low. Consequently, I was asked to admit him as a general surgeon on-call. We started him on some IV fluids, mindful that he has chronic renal failure. He said last night he was not urinating, but this morning he is. He has been on Flagyl as well. He declined milk of magnesia and he declined the MiraLAX and Gatorade earlier this morning. In the meantime, I did call and ask our Internal Medicine Service to see him for his chronic medical issues. His daughter is with him today along with our nurse Suad. PAST MEDICAL HISTORY: Type 2 diabetic, obstructive sleep apnea requiring CPAP, hypertension, COPD, wheelchair bound, five strokes, stage IV chronic renal failure, and apparently there was some question about short-term dialysis. 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 SOCIAL HISTORY: He does not smoke or drink. Dr. Rahul Coyne is his primary care provider. Dr. Farrukh Acuna is his laboratory specialist. He lives with his daughter, Charlotte Zavala, at [phone]. They live together in an apartment. He prefers the [facility]. FAMILY HISTORY: None. REVIEW OF SYSTEMS: Nothing new to add from above. ALLERGIES: None. Electronically Signed By: VENKAT MAKI MD 02/16/19 1626 PATIENT NAME: PORFIRIO ZAVALA CONSULTATION DATE OF : 40 REPORT #: [id number] PHYSICIAN: VENKAT MAKI MD PCP: RAHUL COYNE MD REPORT IS CONFIDENTIAL AND NOT TO BE RELEASED WITHOUT AUTHORIZATION [facility] [address] [place] [id number] Signed MEDICATIONS: Plavix, Zofran, Lipitor, oxycodone, multivitamin, NovoLog, ipratropium, albuterol, Lantus, Linzess, torsemide, lisinopril, atenolol, amlodipine, sodium bicarbonate tablets, doxepin, and gabapentin. PHYSICAL EXAMINATION: VITAL SIGNS: His blood pressure is 132/51, his heart rate is 64, his respiratory rate is 17. He is 98.2 degrees and 92% on 2 L nasal cannula. He is 5 feet 8 inches at 82 kg. GENERAL: Porfirio is lying supine in his hospital bed today with his daughter at the bedside. He is alert, awake, and interactive, but he was not particularly motivated to admit exam currently, so we will have to do that later. LABORATORY DATA: His white blood cell count is 14.7, hemoglobin is 11, mean cell volume is 85, neutrophils 85. Potassium is 3.9, BUN 54, creatinine 3.87 which is up according to his daughter. CO2 is 35, glucose 175, GFR is 15. Liver function tests are negative. Albumin is 4.0. RADIOGRAPHIC STUDIES: The CT scan of the abdomen and pelvis was reviewed, both the images and the report. He does have some mucus plugging in the lower lobes of the lung. He does have stool in his rectum and some air around the rectum. There appears to be a little inflammation around the rectum and probably a little bit with the rectal wall. ASSESSMENT/PLAN: Porfirio is a 78-year-old gentleman who has significant medical comorbidities. He was having constipation and tried to get himself in him at home. He thinks the end of the applicator was cut square rather than round. He said he finally pulled out when he thought he hurt himself. We admitted him overnight and gave him IV fluids and Flagyl. He is quite certain that he had a large BM last night. I explained to Porfirio that he represents high risk obviously. I think it is best that he stay in the hospital on his IV antibiotics and we will keep him on some liquid diet today along with some MiraLAX and Gatorade to see if we can clear him out a little bit better, and after a few days, if he is not getting worse, we could send him home on p.o. antibiotics along with a soft diet and MiraLAX and so forth. A small perforation low in the rectum should heal on its own, so long as it is below the peritoneal reflection, although there is some risk that it may not. I have reviewed this with Porfirio and his daughter, Charlotte, in great detail along with our nurse Suad. Porfirio and his daughter have expressed understanding and agreed to above plan. Electronically Signed By: VENKAT MAKI MD 02/16/19 6939 PATIENT NAME: PORFIRIO ZAVALA CONSULTATION DATE OF : 40 REPORT #: [id number] PHYSICIAN: VENKAT MAKI MD PCP: RAHUL COYNE MD REPORT IS CONFIDENTIAL AND NOT TO BE RELEASED WITHOUT AUTHORIZATION [address] [place], [place] [address] Signed Venkat Maki MD ALB/MODL /[id number] cc: MD Rahul Walker MD Fadi H Akoum, MD Copies: VENKAT MAKI MD, CHRISTOPHER MD AKOUM, FADI H MD ~ Electronically Signed By: VENKAT MAKI MD 02/16/19 1626 PATIENT NAME: PORFIRIO ZAVALA CONSULTATION DATE OF : 40 REPORT #: [id number] PHYSICIAN: VENKAT MAKI MD PCP: RAHUL COYNE MD REPORT IS CONFIDENTIAL AND NOT TO BE RELEASED WITHOUT AUTHORIZATION
--- NOTE | 2019-02-16 16:30 | NUR ---
PT RESTING IN BED. PT ON ROOM AIR, LUNG SOUNDS WITH RHONCHI, ENCOURAGED COUGH AND DEEP BREATH. PT BLOOD GLUCOSE 111, SS INSULIN HELD. BOWEL TONES ACTIVE. PT DENIES OTHER NEEDS AT THIS TIME.
--- NOTE | 2019-02-16 17:31 | NUR ---
PATIENT RESTING IN BED. PATIENT'S OXYGEN LEVEL IS LOW. RN NOTIFIED. RN PUT PATIENT'S OXYGEN IN 2 LNC. VITAL SIGNS AND I&O DONE. CALL LIGHT WITHIN REACH. NO OTHER NEEDS AT THIS TIME
--- NOTE | 2019-02-16 17:42 | NUR ---
PT ON ROOM AIR WHILE AWAKE, 2L WHEN SLEEPING, DAUGHTER MARTHA IN HOME CPAP UNIT. PT ON CLEAR LIQUID DIET, BOWEL TONES ACTIVWE, DENIES NAUSEA, FREQUENT LOOSE STOOL. BLOOD GLUCOE 111 AT DINNER, SS INSULIN HELD. PT WITH MIRALAX IN LEMONADE. IV FLAGYL AND CEFEPIME, LR AT 125 ML/HR. PT WITH LEFT ABOVE KNEE AMPUTATION, SELF TRANSFERS TO WHEEL CHAIR. VOIDING QS.
--- NOTE | 2019-02-16 19:48 | NUR ---
RECEIVED REPORT FROM DAY SHIFT RN. PATIENT IS SITTING ON THE EDGE OF THE BED CONSUMING MIRALAX IN LEMONDAE. PATIENT DENIES ANY NEEDS. CALL LIGHT IN REACH.
--- NOTE | 2019-02-16 19:53 | NUR ---
ANSWERED CALL LIGHT. 1 PA TO THE BATHROOM AND BACK TO BED. PATIENT IS SELF TRANSFER FROM PERSONAL WHEELCHAIR TO BED AND VICE VERSA.
--- NOTE | 2019-02-16 21:44 | NUR ---
PATIENT ASSEMENT COMPLETED. PATIENTS VITALS TAKEN AND RECORDED. PATIENTS EVENING MEDICATIONS GIVEN PER ORDER. PATIENT RATES PAIN AT AN 8/10 IN HIS LEFT "STUMP". PATIENT GIVEN PRN PAIN MEDICATION PER ORDER. PATIENT HAS IV INFUSING PER ORDER. PATIENT IS ON 2L VIA NC. PATIENT HAS BEEN ABLE TO DRINK 1 0F 3 BOTTLES OF MIRILAX. PATIENT HAS SCD ON RLE. PATIENT HAS CPOX IN PLACE. PATIENT DENIES ANY NEEDS AT THIS TIME. CALL LIGHT IN REACH.
--- NOTE | 2019-02-16 23:01 | NUR ---
PATIENT IS RESTING IN BED WITH EYES CLOSED. CPOX READINGS ARE WNL. PATENT IS ON 2L VIA NC. CALL LIGHT IN REACH.
--- NOTE | 2019-02-17 00:36 | NUR ---
HELPED PATIENT CLEANED UP. PATIENT HAD LOOSE BOWEL MOVEMENT. CHANGED PANTS, PULL UPS CHUCKS AND DRAW SHEET.
--- NOTE | 2019-02-17 00:42 | NUR ---
PATIENT WAS INCONTINENT OF STOOL. PATIENT ASSISTED TO THE RESTROOM. BED BATH COMPLETED. PATIENT WAS ALSO ABLE TO VOID. NEW ATTEND PROVIDED. PATIENT IS NOW RESTING IN HOME WHEELCHAIR. PATIENT WOULD LIKE TO SIT UP FOR A WHILE. PATIENTS SCHEDULED MEDICATIONS GIVEN PER ORDER. PATIENT REMAINS ON 2L VA NC. CPOX IN PLACE. CALL LIGHT IN REACH.
--- NOTE | 2019-02-17 01:57 | NUR ---
PATIENT ASSISTED TO THE RESTROOM. PATIENT HAD LARG LOOSE BM. BM IS NOW CLEARER IN NATURE W/SEDIMENT PRESENT. PATIENT IS NOW IN BED RESTING. PATIENT DENIES ANY NEEDS. CALL LIGHT IN REACH.
--- NOTE | 2019-02-17 03:23 | NUR ---
MEDICATION GIVEN PER ORDER. PATIENT DENIES ANY NEEDS. CALL LIGHT IN REACH.
--- NOTE | 2019-02-17 04:57 | NUR ---
PATIENT RESTED WELL THROUGHOUT THE LATER PART OF THE SHIFT. PATIENT IS ON A CLEAR LIQUID DIET. PATIENT DENIED NAUSEA. PATIENT IS ON RA-2L VIA NC AT TIMES. CPOX IN USE. PATIENT REFUSED TO WEAR HOME CPAP. PATIENT IS A SELF PIVOT TRANSFER TO WHEELCHAIR. PATIENT HAS SCD ON RLE. PATIENT HAS LEFT AKA. PATIENT HAS IV INFUSING PER ORDER. PATIENT DRANK X2 BOTTLES OF MIRILAX IN LEMONADE. PATIENT STILL WORKING ON LAST BOTTLE. PATIENT REQUIRES ENCOURAGING TO COMPLETE INTERVENTIONS ORDERED BY MD. PATIENT IS AAOX3 AND USES CALL LIGHT APPROPRIATELY. PATIENT RECEIVED PRN PAIN MEDICATION X1.
--- NOTE | 2019-02-17 05:19 | NUR ---
PATIENTS VITALS TAKEN AND RECORDED. INTAKE AND OUTPUT RECORDED. PATIENT REMAINS ON 2L VIA NC. CPOX IN USE. PATIENT UP TO THE RESTROOM. PATIENT WAS ABLE TO VOID. PATIENT HAD LARGE WATERY BM, SEDIMENT PRESENT. PATIENT IS BACK IN BED RESTING. NO FURTHER NEEDS NOTED. CALL LIGHT IN REACH.
--- NOTE | 2019-02-17 07:15 | NUR ---
BEDSIDE HANDOFF REPORT RECEIVED FROM TOOL REPAIRER BENCH RN. PT SLEEPING IN BED, LEFT UNDISTURBED, O2 SATS 94% ON 2L NC.
--- NOTE | 2019-02-17 08:09 | NUR ---
THIS SEAMER PANTY HOSE ASSISTED PATIENT BACK TO BEDSIDE FROM BATHROOM. PATIENT SITTING UP IN HIS WHEELCHAIR FOR BREAKFAST. PATIENT CALL LIGHT IN REACH. RN IN ROOM. LINENS CHANGED AND READJUSTED NEEDED. NO OTHER NEEDS AT THIS TIME.
--- NOTE | 2019-02-17 08:20 | NUR ---
PT SITTING IN WHEEL CHAIR. PT RATING PAIN 9/10 TO LEFT STUMP, GIVEN 15 MG OXYCODONE. PT WEANED TO ROOM AIR, 02 SATS 93%, LUNG SOUNDS WITH RHONCHI. PT DENIES NAUSEA, BOWEL TONES ACTIVE, TOLERATIGN CLEAR LIQUID DIET, DENIES ABD PAIN. PT WITHOUT EDEMA, CMS INTACT. IV FLAGYL INFUSING. PT HR 55-59, BP 135/40, DISCUSSED CARDIAC MEDS WITH MD, OK TO GIVE. PT DENIES OTHER NEEDS AT THIS TIME. DISCUSSED PLAN OF CARE FOR THE DAY.
--- NOTE | 2019-02-17 10:57 | NUR ---
PT SLEEPING, O2 SATS 91% ON ROOM AIR. PT LEFT UNDISTURBED.
--- NOTE | 2019-02-17 12:56 | NUR ---
PATIENT SITTING UP IN WHEEL CHAIR, VISITING WITH FAMILY, WAITING FOR DISCHARGE INSTRUCTIONS. PATIENT CALL LIGHT IN REACH. NO OTHER NEEDS AT THIS TIME.
--- NOTE | 2019-02-17 14:25 | NUR ---
PATIENT SITTING UP IN WHEEL CHAIR, EATING LUNCH. RN IN ROOM. NO OTHER NEEDS AT THIS TIME .
[2019-02-17] MEDS ORDERED: CIPRO500 MG PO (14:33)
[2019-02-17] MEDS ORDERED: FLAGYL500 MG PO (14:34)
[2019-02-17] MEDS ORDERED: BENEFIBER1 EAC1 PO (14:48)
[2019-02-17] MEDS ORDERED: MIRALAX17 GM PO (14:48)
--- NOTE | 2019-02-18 07:29 | DS ---
[facility] [address] [place], [place] [address] Signed ADMISSION DATE: 02/15/2019 DISCHARGE DATE: 02/17/2019 FINAL DIAGNOSES: 1. Constipation. 2. Self-inflicted rectal perforation with enema applicator. PROCEDURES: CT scan of abdomen and pelvis. HISTORY OF PRESENT ILLNESS: Porfirio is a 78-year-old gentleman, who is quite debilitated, whom I have known for a number of years. He lives with his daughter. He said he had no bowel movement for at least three days. He tried some milk of magnesia without success. He tried to give himself an enema, but when he felt pain he withdrew the applicator. He ended up coming into the emergency room for evaluation. In the emergency room, his abdomen was benign. Rectal exam was not particularly concerning. His white count was up at 14.7. His hemoglobin was also low at 11 with a mean cell volume of 85. He has chronic renal failure with a BUN of 54 and a creatinine of 3.87. I have been asked to admit him as a general surgeon on-call. HOSPITAL COURSE: Porfirio was admitted as above, started on IV fluids, some clear liquids, and we started Flagyl IV. We then added cefepime. Initially, he declined his magnesium citrate as well as his MiraLAX because he did not think MiraLAX would work and he does not like Gatorade. After a long discussion with Porfirio and his daughter, he decided to stay for at least a day or two and see how things go clinically. He did take his clear liquids in his MiraLAX and Gatorade and he had more than 11 bowel movements both solid and liquid. He said he feels much better. His abdominal exam remains completely benign. His white count is down to 7 and his hemoglobin dropped to 8.7 with hydration. BUN and creatinine about the same. After talking with Porfirio today, he feels comfortable going home on Cipro and Flagyl. We had a long discussion regarding daily use a Benefiber and some MiraLAX to keep his bowel movements soft and coming every day or so. DISCHARGE PLANS AND MEDICATIONS: Porfirio is going to be discharged home with Cipro 500 mg p.o. b.i.d. for 5 days. We will give him Flagyl 500 mg p.o. t.i.d. for five days. He is to take Benefiber 1 tablespoon b.i.d. in 8-12 ounces of clear liquid. He can purchase that [id number]. He is to take some MiraLAX 17 g p.o. b.i.d. and 8-12 ounces of clear liquid and he can purchase that [id number] as well. He can resume all his chronic medications including his Plavix. I explained to Porfirio the rectal perforation will heal by secondary intention, Electronically Signed By: VENKAT MAKI MD 02/18/19 0729 PATIENT NAME: PORFIRIO ZAAVLA DISCHARGE SUMMARY DATE OF : 40 REPORT #: [id number] PHYSICIAN: VENKAT MAKI MD PCP: RAHUL COYNE MD REPORT IS CONFIDENTIAL AND NOT TO BE RELEASED WITHOUT AUTHORIZATION [address] [address] Signed it should be fine. That is actually quite common. I will have him follow up my office in a week or so to check in on him and see how things are going. He has expressed understanding and agrees above plan. Venkat Maki MD ALB/MODL /[id number] cc: MD Rahul Walker MD Fadi H Akoum, MD Copies: VENKAT MAKI MD, CHRISTOPHER MD AKOUM, FADI H MD ~ Electronically Signed By: VENKAT MAKI MD 02/18/19 0729 PATIENT NAME: PORFIRIO ZAVALA DISCHARGE SUMMARY DATE OF : 40 REPORT #: [id number] PHYSICIAN: VENKAT MAKI MD PCP: RAHUL COYNE MD REPORT IS CONFIDENTIAL AND NOT TO BE RELEASED WITHOUT AUTHORIZATION
== END 2019-02-17 15:45 | disposition home or self-care (01) ==
LOC: ED 22:20 → MS 22:22
PROVIDERS: ADMIT Colon & Rectal Surgery
DX: K91.71 Accidental puncture and laceration of a digestive system organ or structure during a digestive system procedure (principal); K59.00 Constipation, unspecified; K52.9 Noninfective gastroenteritis and colitis, unspecified; E11.22 Type 2 diabetes mellitus with diabetic chronic kidney disease; I12.9 Hypertensive chronic kidney disease with stage 1 through stage 4 chronic kidney disease, or unspecified chronic kidney disease; N18.4 Chronic kidney disease, stage 4 (severe); J44.9 Chronic obstructive pulmonary disease, unspecified; F17.200 Nicotine dependence, unspecified, uncomplicated; G47.33 Obstructive sleep apnea (adult) (pediatric); K21.9 Gastro-esophageal reflux disease without esophagitis; G89.29 Other chronic pain; Z89.612 Acquired absence of left leg above knee; Z99.3 Dependence on wheelchair; Z86.73 Personal history of transient ischemic attack (TIA), and cerebral infarction without residual deficits; Z79.02 Long term (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 of antithrombotics/antiplatelets; Z79.4 Long term (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 of insulin; Z79.899 Other long term (current) drug therapy
CPT/HCPCS: 36415; 51798; 74176; 80048; 80053; 83735; 84100; 85025; 94640; 94762; 96361; 96365; 96366; 96367; 96368; 96372; 96375; 96376; 99284-25; 99406; G0378; J0692; J1170; J1644; J1815; J7030; J7060; J7120

== ENCOUNTER 2019-03-03 06:55 | Emergency (ER) | payer MEDICARE, OTHER ==
[~2019-03-03] VITALS: Ht 172.7 cm; Wt 82.5 kg
--- OUTSIDE RECORDS SUMMARY | ~2019-03-03 | XMS | Clinical Summary ---
Demographics + + + | Address | [address] | | | [place] [address] | + + + | Home Phone [...] Team Providers + +------+ + | Care Seam Hammerer Name | Role | Phone | + [...] | | Activ | | (VITAMIN D-3) [phone] | mouth Every 3 | | | [...] +---------+ | [place] | MEDICA | [id number] | Medica | [phone] | | | [...] OSWALDO | al/Scott | | 1940 | [phone] | [place] | | | chula | | | [phone] | + +--------+ +--------+ + +
--- OUTSIDE RECORDS SUMMARY | ~2019-03-03 | XMS | Clinical Summary ---
Demographics + + + | Address | [address] | | | [place] [address] | + + + | Home Phone [...] Team Providers + +------+ + | Care Pickle Sorter Name | Role | Phone | [...] | | Activ | | (VITAMIN D-3) [phone] | mouth Every 3 | | | [...] +---------+ | [place] | MEDICA | [id number] | Medica | [phone] | | | [...] OSWALDO | al/Scott | | 1940 | [phone] | [place] | | | chula | | | [phone] | [phone] | + +--------+ +--------+ + +
--- OUTSIDE RECORDS SUMMARY | ~2019-03-03 | XMS | Clinical Summary ---
Demographics + + + | Address | [address] | | | [place] [address] | + + + | Home Phone | | + + + | Preferred Language | Unknown | + + + | Marital Status | | + + + | Hinduism Affiliation | 1077 | + + + | Race | Unknown | + + + | Ethnic Group | Unknown | + + + Author + + + | Author | [employer] | + + + | Organization | [facility] [facility] | + + + | Address | Unknown | + + + | Phone | Unavailable | + + + Support + + +---------+ + | Name | Relationship | Address | Phone | + + +---------+ + | Charlotte Zavala | ECON | Unknown | | + + +---------+ + Care Team Providers + +------+ + | Care Dishwasher Busser Name | Role | Phone | + [...] Last Assessment & Plan: Controlled on current iyrvvhufng50 yr | | old male with COPD, [...] | +--------+ + + + + | 03/02/ | Documentsherwin | Mckay Shafer (03/01/19) | | 2018 | on Only | | ARNAUD Abdi | | +--------+ + + + + | 02/17/ | Documentsherwin | Mckay Shafer (ER Chart note | | 2018 | on Only | | [facility] [facility] | [facility] | | | | | | 02/16/19) | +--------+ + + + + | 02/16/ | Documentati | | Alfred, | Labs Only (02/12/19) | | 2019 | on Only | | ARNAUD Abdi | | +--------+ + + + + | 02/16/ | Telephone | | Alfred, | Other ([facility] | | 2018 | | | A[place] Abdi | ER visit) | +--------+ + + + + | 12/07/ | Office | | Farrukh Acuna MD | CKD (chronic kidney | | 2018 | Visit | | | disease), stage IV | | | | | | (Primary Dx); Edema | | | | | | of right lower | | | | | | extremity; Anemia of | | | | | | chronic renal | | | | | | failure, stage 4 | | | | | | (severe) ([facility]); | | | | | | Electrolyte [...] insulin | | | | | | ([facility]); Secondary | | | | | | hyperparathyroidism | | | | | | ([facility]); Vitamin D | | | | | [...] | | | | | | [address] [place] | | | | | | [address] | | | | | | | [...] Vaccine: Influenza | | | | | (Season Ended) | 9 | | | + + [...] | PROTEIN / CREATININE | Routin | 03/01/2019 | | Results [...] | IRON AND TIBC | Routin | 03/01/2019 | | Results [...] +--------+ + + + | CBC W/AUTO DIFF | Routin | 03/01/2019 | | Results for this | | (REFLEX TO MANUAL) | e | 12:55 PM | | procedure are in the | | | | PDT | | results section. | + +--------+ + + + | URINE MICROSCOPIC | Routin | 03/01/2019 | | Results for this | | ONLY | e | 12:55 PM | [...] +--------+ + + + | CBC W/AUTO DIFF | Routin | 02/15/2019 | | Results for this | | (REFLEX TO MANUAL) | e | 11:29 PM | | procedure are in the | | | | PDT | | results section. | + +--------+ + + + from Last 3 Months Results Iron panel (03/01/2019 12:55 PM) + +---------+ + + | Component | Value | Ref Range | Performed At | + +---------+ + + | IRON | 55.85 | 37 - 160 | | + +---------+ + + | IRON % SAT | 24.1 | 20 - 55 | | + +---------+ + + | TIBC | 232 (A) | 245 - 400 | | + +---------+ + + + + | Specimen | + + | Blood | + + Protein / creatinine ratio, urine (03/01/2019 12:55 PM) + + + + + | Component | Value | Ref Range | Performed At | + + + + + | UR | 2,445.6 (A) | 0 - 150 | | | PROTEIN/CREATININE | | | | + + + + + + + | Specimen | + + | Urine - Urine, | | Unspecified Source | + + Urine microscopic only (03/01/2019 12:55 PM) + + + + + | Component | Value | Ref Range | Performed At | + + + + + | COLOR UA | Yellow | | | + + + + + | CLARITY | Clear | | | + + + + + | Specific [place], UA | 1.009 | 1.005 - 1.030 | | + + + + + | LEUKOCYTE ESTERASE | Negative | | | + + + + + | NITRITE | Negative | | | + + + + + | UROBILINOGEN | Normal | | | + + + + + | PROTEIN | TraceComment: 100 | | | + + + + + | PH,URINE | 6 | 5 - 9 | | + + + + + | BLOOD | PositiveComment: Small | | | + + + + + | KETONES | Negative | | | + + + + + | BILIRUBIN | Negative | | | + + + + + | GLUCOSE | TraceComment: Small | | | + + + + + + + | Specimen | + + | Urine | + + CBC W/Auto Diff (Reflex to Manual) (03/01/2019 12:55 PM)Only the most recent of 2 results w ithin the time period is included. + + + + + | Component | Value | Ref Range | Performed At | + + + + + | WBC | 8.6 | 4.5 - 11.0 10^3/mL | | + + + + + | RBC | 3.21 (A) | 4.3 - 5.7 10^6/ L | | + + + + + | HGB | 9.3 (A) | 13.5 - 18.0 g/dL | | + + + + + | HCT | 30.6 (A) | 41 - 50 % | | + + + + + | MCV | 95.3 | 81 - 99 fL | | + + + + + | MCH | 29 | 27 - 33 pg | | + + + + + | MCHC | 30 | 30 - 36 g/dL | | + + + + + | PLT | 250 | 140 - 440 K/ L | | + + + + + | RDW SD | 15.6 (A) | 10.5 - 15.0 % | | + + + + + | MPV | | fL | | + + + + + | DIFF TYPE | | | | + + + + + | NEUTROPHILS | 74.4 | 39 - 80 % | | + + + + + | LYMPHOCYTES | 12.1 (A) | 24 - 44 % | | + + + + + | MONOCYTES | 7.5 | 0 - 12 % | | + + + + + | EOSINOPHILS | 5.2 | 0 - 6 % | | + + + + + | BASOPHILS | 0.8 | 0 - 2 % | | + + + + + | NEUTROPHILS ABS | | / L | | + + + + + | LYMPHOCYTES ABS | | / L | | + + + + + | MONOCYTES ABS | | / L | | + + + + + | EOSINOPHILS ABS | | / L | | + + + + + | BASOPHILS ABS | | / L | | + + + + + + + | Specimen | + + | Blood | + + Ferritin (03/01/2019 12:55 PM) + +-------+ + + | Component | Value | Ref Range | Performed At | + +-------+ + + | FERRITIN | 175.6 | 30 - 400 ng/mL | | + +-------+ + + + + | Specimen | + + | Blood | + + Renal function panel (03/01/2019 12:55 PM) + + + + + | Component | Value | Ref Range | Performed At | + + + + + | GLUCOSE | 233 (A) | 70 - 100 mg/dL | | + + + + + | BUN | 38 (A) | 6 - 23 mg/dL | | + + + + + | CREATININE | 3.03 (A) | 0.70 - 1.18 mg/dL | | + + + + + | PHOSPHORUS | 5.0 | 2.5 - 5.0 mg/dL | | + + + + + | Albumin | 3.1 (A) | 3.5 - 5.0 | | + + + + + | SODIUM | 140 | 132 - 143 mmol/L | | + + + + + | POTASSIUM | 4.4 | 3.6 - 5.1 mmol/L | | + + + + + | CHLORIDE | 102 | 95 - 112 mmol/L | | + + + + + | CO2 | 23 | 19 - 31 mmol/L | | + + + + + | ANION GAP AGAP | 19.4 | 7 - 21 mmol/L | | + + + + + | GFR MDRD Non Af Amer | | | | + + + + + | Phosphorus,Inorganic | | | | + + + + + | BUN/CREAT | 12.5 | 6.0 - 28.6 | | + + + + + | CALCIUM | 7.5 (A) | 8.5 - 10.3 mg/dL | | + + + + + | EGFR | 20 (A) | 60 - 140 mg/dL | | + + + + + + + | Specimen | + + | Blood | + + Comprehensive metabolic panel (02/15/2019 11:29 PM) + + + + + | Component | Value | Ref Range | Performed At | + + + + + | GLUCOSE | 175 (A) | 70 - 100 mg/dL | | + + + + + | BUN | 54 (A) | 6 - 23 mg/dL | | + + + + + | CREATININE | 3.87 (A) | 0.70 - 1.18 mg/dL | | + + + + + | BUN/CREAT | 14.0 | 6.0 - 28.6 | | + + + + + | CALCIUM | 9.7 | 8.5 - 10.3 mg/dL | | + + + + + | TOTAL PROTEIN | 7.2 | 6.0 - 8.3 g/dL | | + + + + + | Albumin | 4.0 | 3.5 - 5.0 | | + + + + + | GLOBULIN | 3.2 | 1.8 - 3.5 | | + + + + + | A/G | 1.3 | 1.1 - 2.4 | | + + + + + | TBIL | 0.4 | 0.0 - 1.2 mg/dL | | + + + + + | ALK PHOS | 79 | 31 - 120 | | + + + + + | ALT | 6 (A) | 7 - 52 U/L | | + + + + + | AST | 9 (A) | 13 - 39 U/L | | + + + + + | SODIUM | 141 | 132 - 143 mmol/L | | + + + + + | POTASSIUM | 3.9 | 3.6 - 5.1 mmol/L | | + + + + + | CHLORIDE | 94 (A) | 95 - 112 mmol/L | | + + + + + | CO2 | 35 (A) | 19 - 31 mmol/L | | + + + + + | ANION GAP AGAP | 15.9 | 7 - 21 mmol/L | | + + + + + | EGFR | 15 (A) | 60 - 140 [...] +------+-------+ + | MEDICARE | MEDICA | [id number] | | | [address] | | | RE | | | | [place] [address] | | | IP-OP | | | | | + +--------+ +------+-------+ + | MEDICAID | MEDICA | [id number] | | | [address] | | | ID | | | | [place] | | | [place] | | | | [phone] | + +--------+ +------+-------+ + + +--------+ [...] al/Fam | | 1940 | [phone] | [place] | | | chula | | | [phone] | [phone] | + +--------+ +--------+ + +
--- OUTSIDE RECORDS SUMMARY | ~2019-03-03 | XMS | Encounter Summary ---
Demographics + + + | Address | [address] | | | [place] [address] | + + + | Home Phone | | + + + | Preferred Language | Unknown | + + + | Marital Status | | + + + | Congregational Affiliation | 1077 | + + + | Race | Unknown | + + + | Ethnic Group | Unknown | + + + Author + + + | Author | [employer] [employer] | + + + | Organization | [facility] [employer] [facility] | + + + | Address | Unknown | + + + | Phone | Unavailable | + + + Support + + +---------+ + | Name | Relationship | Address | Phone | + + +---------+ + | Charlotte Andujar | ECON | Unknown | | + + +---------+ + Care Team Providers + +------+ + | Care Real Estate Job Titles Name | Role | Phone [...] | | [address] | [address] [place], [place] | (Primary Dx); Edema | | | | [place] [address] | [address] | of right lower | | | | [phone] | | extremity; Anemia of | | | | | | chronic renal | | | | | | failure, stage 4 | | | | | | (severe) ([facility]); | | | | | [...] studies, Ferritin, intact PTH, rU/A, Urine total oyajmod-dg-qo eatinine ratio done before he comes back in 3 months. in this encounter Progress Notes Farrukh Acuna MD - 12/07/2018 12:00 PM PSTFormatting of this note may be different from richard fragoso original. Patient Active Problem List Diagnosis CKD (chronic kidney disease), stage IV Type 2 diabetes mellitus with diabetic nephropathy, with long-term current use of insul in ([facility]) FH: HTN (hypertension) Edema of right [...] 10/2016 with severe pneumonia, severe ZEKE; needed STAIN SPRAYER for ~5 weeks b efore renal function [...] LABIRON 23.0 11/27/2018 LABPROT 2,014.5 (A) 11/27/2018 [id number] 30 10/08/2018 Assessment: Mr. Andujar is a 78 y.o. male patient with stage IV CKD on a background of diabetes & hypert ension and recent hospitalization for C-diff and hehydration. The most likely pathology here is that of diabetic nephropathy +/- hypertensive nephrosclerosis/arteriolosclerosis. He was hospitalized in 10/2016 with severe pneumonia, severe ZEKE; needed STAIN SPRAYER for ~5 weeks b efore renal function [...] studies, Ferritin, intact PTH, rU/A, Urine total nheoefu-ya-hk eatinine ratio done before he comes back [...] | | | | | | [address] [place], [place] | | | | | | [...]
--- OUTSIDE RECORDS SUMMARY | ~2019-03-03 | XMS | Clinical Summary ---
Demographics + + + | Address | [address] | | | [place] [address] | + + + | Home Phone [...] + + | Author | [facility] | + + + | Organization | [facility] | + + + | Address | Unknown | + + + | Phone | Unavailable | + + + Support + + + + + | Name | Relationship | Address | Phone | + + + + + | DELGADO ZAVALA | [address] | [place] | | | | | [address] | | + + + + + Care Team Providers + +------+ + | Care Advanced Registered Nurse Name | Role | Phone | + +------+ + | Rahul Silva MD | PP | Unavailable | + +------+ + Source Comments DAKOTA is fully live on both [facility] Ambulatory and [facility] InPatient.[facility] Allergies No Known Allergies Current Medications [...]
--- OUTSIDE RECORDS SUMMARY | ~2019-03-03 | XMS | Encounter Summary ---
Demographics + + + | Address | [address] | | | [place] [address] | + + + | Home Phone | | + + + | Preferred Language | Unknown | + + + | Marital Status | | + + + | Uatsdin Affiliation | 1077 | + + + | Race | Unknown | + + + | Ethnic Group | Unknown | + + + Author + + + | Author | [facility] [employer] | + + + | Organization | [facility] [employer] [facility] | + + + | Address | Unknown | + + + | Phone | Unavailable | + + + Support + + +---------+ + | Name | Relationship | Address | Phone | + + +---------+ + | Charlotte Andujar | ECON | Unknown | | + + +---------+ + Care Team Providers + +------+ + | Care Bunch Trimmer Mold Name | Role | Phone | + [...] | | | | | [facility] [address] | | | | | | [place] [address] | | | | | | [phone] | | | +--------+ + + + [...] | | | | | | [address] [place], [place] | | | | | | [id number] | | | | | | | [...] | | | | use of insulin ([facility]) | | | | | Hyperuricemia | [...] | | | | use of insulin ([facility]) | | | | | Hyperuricemia | [...] | | | | use of insulin ([facility]) | | | | | Hyperuricemia | [...] | | | | use of insulin ([facility]) | | | | | Hyperuricemia | [...]
--- OUTSIDE RECORDS SUMMARY | ~2019-03-03 | XMS | Encounter Summary ---
Demographics + + + | Address | [address] | | | [place] [address] | + + + | Home Phone | | + + + | Preferred Language | Unknown | + + + | Marital Status | | + + + | Mandaeism Affiliation | 1077 | + + + | Race | Unknown | + + + | Ethnic Group | Unknown | + + + Author + + + | Author | [employer] | + + + | Organization | [facility] [employer] [facility] | + + + | Address | Unknown | + + + | Phone | Unavailable | + + + Support + + +---------+ + | Name | Relationship | Address | Phone | + + +---------+ + | Charlotte Andujar | ECON | Unknown | | + + +---------+ + Care Team Providers + +------+ + | Care Machine Assembler Name | Role | Phone | + +------+ + | Rahul Silva MD | PCP | Unavailable | + +------+ + Reason for Visit +--------+ + | Reason | Comments | +--------+ + | Other | [facility] visit | +--------+ + Encounter Details +--------+ + + + + | Date | Type | Department | Care Team | Description | +--------+ + + + + | 02/16/ | Telephone | [facility] | Alfred, | Other ([facility] | | 2019 | | [place] [address] | ARNAUD [address]di | ER visit) | | | | [address] | | | | | | [place] [address] | | | | | | [phone] | | | +--------+ + + + [...] | | | | | | [address] [place], [place] | | | | | | [id number] | | | | | | | | +--------+---------+ + + + as of this encounter Visit Diagnoses Not on filein this encounter"
--- OUTSIDE RECORDS SUMMARY | ~2019-03-03 | XMS | Encounter Summary ---
Demographics + + + | Address | [address] | | | [place] [address] | + + + | Home Phone | | + + + | Preferred Language | Unknown | + + + | Marital Status | | + + + | Zoroastrian Affiliation | 1077 | + + + | Race | Unknown | + + + | Ethnic Group | Unknown | + + + Author + + + | Author | [facility] [facility] [employer] | + + + | Organization | [facility] | + + + | Address | Unknown | + + + | Phone | Unavailable | + + + Support + + +---------+ + | Name | Relationship | Address | Phone | + + +---------+ + | Charlotte Andujar | ECON | Unknown | | + + +---------+ + Care Team Providers + +------+ + | Care Material Clerk Name | Role | Phone | + +------+ + | Rahul Silva MD | PCP | Unavailable | + +------+ + Reason for Visit + + + | Reason | Comments | + + + | Labs Only | 03/01/19 | + + + Encounter Details +--------+ + + + + | Date | Type | Department | Care Team | Description | +--------+ + + + + | 03/02/ | Documentati | [facility] | Alfred | Andrés Only (03/01/19) | | 2019 | on Only | [place] [address] | ARNAUD Abdi | | | | | [address] | | | | | | [place] [address] | | | | | | [phone] | | | +--------+ + + + [...] [place] | | | | | | [id number] | | | | | | | [...] encounter Results Protein / creatinine ratio, urine (03/01/2019 12:55 [...] | | Unspecified Source | + + Ferritin (03/01/2019 12:55 PM) + +-------+ + + | Component | Value | Ref Range | Performed At | + +-------+ + + | FERRITIN | 175.6 | 30 - 400 ng/mL | | + +-------+ + + + + | Specimen | + + | Blood | + + Iron panel (03/01/2019 12:55 PM) + +---------+ [...] + | Blood | + + CBC W/Auto Diff (Reflex to Manual) (03/01/2019 12:55 PM) + + + + [...] + + | Blood | + + Urine microscopic only (03/01/2019 12:55 PM) + + + + + | Component | Value | Ref Range | Performed At | + + + + + | COLOR UA | Yellow | | | + + + + + | CLARITY | Clear | | | + + + + + | Specific [place], UA | 1.009 | 1.005 - 1.030 [...] + + | Urine | + + in this encounter Visit Diagnoses Not on filein this encounter"
--- OUTSIDE RECORDS SUMMARY | ~2019-03-03 | XMS | Clinical Summary ---
Demographics + + + | Address | [address] | | | [place] [address] | + + + | Home Phone | | + + + | Preferred Language | Unknown | + + + | Marital Status | | + + + | Judaism Affiliation | 1077 | + + + | Race | Unknown | + + + | Ethnic Group | Unknown | + + + Author + + + | Author | [facility] [employer] | + + + | Organization | [facility] | + + + | Address | Unknown | + + + | Phone | Unavailable | + + + Support + + +---------+ + | Name | Relationship | Address | Phone | + + +---------+ + | Charlotte Zavala | ECON | Unknown | | + + +---------+ + Care Team Providers + +------+ + | Care Truck Rental Manager Name | Role | Phone [...] Last Assessment & Plan: Controlled on current kultukspwr41 yr | | old male with COPD, [...] | Telephone | | Alfred, | Other ([facility]'s | | 2018 | | [...] | | | | | | (severe) ([facility]); | | | | | | Electrolyte [...] insulin | | | | | | ([facility]); Secondary | | | | | | hyperparathyroidism | | | | | | ([facility]); Vitamin D | | | | | [...] [place] | | | | | | [address] | | | | | | | [...] + + + + + | Specific [place], UA | 1.009 | 1.005 - 1.030 [...] +------+-------+ + | MEDICARE | MEDICA | [id number] | | | [address] | | | RE | | | | [place] [address] | | | IP-OP | | | | | + +--------+ +------+-------+ + | MEDICAID | MEDICA | [id number] | | | [address] | | | [place] | | | | [place] | | | [place] | | | | [address] | + +--------+ +------+-------+ + + +--------+ [...] | | | [place] | | | 87 | [address] | + +--------+ +--------+ + +
--- OUTSIDE RECORDS SUMMARY | ~2019-03-03 | XMS | Clinical Summary ---
Demographics + + + | Address | [address] | | | [place] [address] | + + + | Home Phone [...] [facility] | + + + | Organization | [facility] | + + + | Address | Unknown | + + + | Phone | Unavailable | + + + Support + + + + + | Name | Relationship | Address | Phone | + + + + + | DELGADO ZAVALA | [address] | [place] | | | | | [address] | | + + + + + Care Team Providers + +------+ + | Care Shift Commander Name | Role | Phone | + +------+ + | Rahul Silva MD | PP | Unavailable | + +------+ + Source Comments DAKOTA is fully live on both [facility] Ambulatory and [facility] InPatient.[facility] Allergies No Known Allergies Current Medications [...]
--- OUTSIDE RECORDS SUMMARY | ~2019-03-03 | XMS | Encounter Summary ---
Demographics + + + | Address | [address] | | | [place] [address] | + + + | Home Phone | | + + + | Preferred Language | Unknown | + + + | Marital Status | | + + + | Rastafari Affiliation | 1077 | + + + | Race | Unknown | + + + | Ethnic Group | Unknown | + + + Author + + + | Author | [facility] [employer] | + + + | Organization | [facility] [employer] [facility] | + + + | Address | Unknown | + + + | Phone | Unavailable | + + + Support + + +---------+ + | Name | Relationship | Address | Phone | + + +---------+ + | Charlotte Andujar | ECON | Unknown | | + + +---------+ + Care Team Providers + +------+ + | Care Deputy Sheriff Generalist/Bailiff Name | Role | Phone | + [...] | | | | [facility] [address] | | | | | | [place] [address] | | | | | | [phone] | | | +--------+ + + + [...] | | | | | | [address] [place], [place] | | | | | | [address] | | | | | | | [...] | | | | use of insulin ([facility]) | | | | | Hyperuricemia | [...] | | | | use of insulin ([facility]) | | | | | Hyperuricemia | [...] | | | | use of insulin ([facility]) | | | | | Hyperuricemia | [...] | | | | use of insulin ([facility]) | | | | | Hyperuricemia | [...]
--- OUTSIDE RECORDS SUMMARY | ~2019-03-03 | XMS | Encounter Summary ---
Demographics + + + | Address | [address] | | | [place] [address] | + + + | Home Phone | | + + + | Preferred Language | Unknown | + + + | Marital Status | | + + + | Sabianism Affiliation | 1077 | + + + | Race | Unknown | + + + | Ethnic Group | Unknown | + + + Author + + + | Author | [facility] | + + + | Organization | [facility] | + + + | Address | Unknown | + + + | Phone | Unavailable | + + + Support + + +---------+ + | Name | Relationship | Address | Phone | + + +---------+ + | Charlotte Andujar | ECON | Unknown | | + + +---------+ + Care Team Providers + +------+ + | Care Buffing Machine Tender Name | Role | Phone [...] | | [address] | [address] [place], [place] | (Primary Dx); Edema | | | | [place] [address] | [address] | of right lower | | | | [phone] | | extremity; Anemia of | | | | | | chronic renal | | | | | | failure, stage 4 | | | | | | (severe) ([facility]); | | | | | | Electrolyte [...] | | ([facility]); Secondary | | | | | | [...] studies, Ferritin, intact PTH, rU/A, Urine total culdchs-kl-sy eatinine ratio done before he comes back in 3 months. in this encounter Progress Notes Farrukh Acuna MD - 12/07/2018 12:00 PM PSTFormatting of this note may be different from richard fragoso original. Patient Active Problem List Diagnosis CKD (chronic kidney disease), stage IV Type 2 diabetes mellitus with diabetic nephropathy, with long-term current use of insul in ([facility]) FH: HTN (hypertension) Edema of right lower [...] 10/2016 with severe pneumonia, severe ZEKE; needed BULK FOLDER for ~5 weeks b efore renal function recovery mid 12/2016. He was admitted to [facility] for 3 nights in July 2016 for [...] LABIRON 23.0 11/27/2018 LABPROT 2,014.5 (A) 11/27/2018 [id number] 30 10/08/2018 Assessment: Mr. Andujar is a 78 y.o. male patient with stage IV CKD on a background of diabetes & hypert ension and recent hospitalization for C-diff and hehydration. The most likely pathology here is that of diabetic nephropathy +/- hypertensive nephrosclerosis/arteriolosclerosis. He was hospitalized in 10/2016 with severe pneumonia, severe ZEKE; needed BULK FOLDER for ~5 weeks b efore renal function [...] studies, Ferritin, intact PTH, rU/A, Urine total zeyhwbh-kr-zn eatinine ratio done before he comes back [...] | | | | | | [address] [place], [place] | | | | | | [...]
--- OUTSIDE RECORDS SUMMARY | ~2019-03-03 | XMS | Encounter Summary ---
Demographics + + + | Address | [address] | | | [place] [address] | + + + | Home Phone | | + + + | Preferred Language | Unknown | + + + | Marital Status | | + + + | Religion Affiliation | 1077 | + + + | Race | Unknown | + + + | Ethnic Group | Unknown | + + + Author + + + | Author | [employer] | + + + | Organization | [facility] | + + + | Address | Unknown | + + + | Phone | Unavailable | + + + Support + + +---------+ + | Name | Relationship | Address | Phone | + + +---------+ + | Charlotte Andujar | ECON | Unknown | | + + +---------+ + Care Team Providers + +------+ + | Care Disintegrator Feeder Name | Role | Phone | + +------+ + | Rahul Silva MD | PCP | Unavailable | + +------+ + Reason for Visit + + + | Reason | Comments | + + + | Labs Only | 02/12/19 | + + + Encounter Details +--------+ + + + + | Date | Type | Department | Care Team | Description | +--------+ + + + + | 02/16/ | Documentati | [facility] | Alfred | Labs Only (02/12/19) | | 2019 | on Only | [place] [address] | [address] | | | | | [address] | | | | | | [place] [address] | | | | | | [phone] | | | +--------+ + + + [...] [place] | | | | | | [id number] | | | | | | | [...] + + + in this encounter Results Comprehensive metabolic panel (02/15/2019 11:29 PM) + [...] + CBC W/Auto Diff (Reflex to Manual) (02/15/2019 11:29 PM) + + + + + | Component | Value | Ref Range | Performed At | + + + + + | WBC | 14.7 (A) | 4.5 - 11.0 10^3/mL | | + + + + + | RBC | 3.87 (A) | 4.3 - 5.7 10^6/ L | | + + + + + | HGB | 11.1 (A) | 13.5 - 18.0 g/dL | | + + + + + | HCT | 33.2 (A) | 41 - 50 % | | + + + + + | MCV | 85.7 | 81 - 99 fL | | + + + + + | MCH | 29 | 27 - 33 pg | | + + + + + | MCHC | 33 | 30 - 36 g/dL | | + + + + + | PLT | 305 | 140 - 440 K/ L | | + + + + + | RDW SD | 14.4 | 10.5 - 15.0 % | | + + + + + | MPV | | fL | | + + + + + | DIFF TYPE | | | | + + + + + | NEUTROPHILS | 85.9 (A) | 39 - 80 % | | + + + + + | LYMPHOCYTES | 5.9 (A) | 24 - 44 % | | + + + + + | MONOCYTES | 5.2 | 0 - 12 % | | + + + + + | EOSINOPHILS | 2.3 | 0 - 6 % | | + + + + + | BASOPHILS | 0.7 | 0 - 2 % | | [...]
--- OUTSIDE RECORDS SUMMARY | ~2019-03-03 | XMS | Encounter Summary ---
Demographics + + + | Address | [address] | | | [place] [address] | + + + | Home Phone | | + + + | Preferred Language | Unknown | + + + | Marital Status | | + + + | Druze Affiliation | 1077 | + + + | Race | Unknown | + + + | Ethnic Group | Unknown | + + + Author + + + | Author | [employer] | + + + | Organization | [facility] | + + + | Address | Unknown | + + + | Phone | Unavailable | + + + Support + + +---------+ + | Name | Relationship | Address | Phone | + + +---------+ + | Charlotte Andujar | ECON | Unknown | | + + +---------+ + Care Team Providers + +------+ + | Care Install And Repair Technician Name | Role | Phone | + +------+ + | Rahul Silva MD | PCP | Unavailable | + +------+ + Reason for Visit +--------+ + | Reason | Comments | +--------+ + | Other | ER Chart estela Hart 02/16/19 | +--------+ + Encounter Details +--------+ + + + + | Date | Type | Department | Care Team | Description | +--------+ + + + + | 02/17/ | Documentati | [facility] | Simon, | Other (ER Chart note | | 2019 | on Only | [place] [address] | [address] | | | | [address] | | 02/16/19) | | | | [place] [address] | | | | | | [phone] | | | +--------+ + + + [...] [place] | | | | | | [address] | | | | | | | | +--------+---------+ + + + as of this encounter Visit Diagnoses Not on filein this encounter"
--- OUTSIDE RECORDS SUMMARY | ~2019-03-03 | XMS | Encounter Summary ---
Demographics + + + | Address | [address] | | | [place] [address] | + + + | Home Phone | | + + + | Preferred Language | Unknown | + + + | Marital Status | | + + + | Restorationism Affiliation | 1077 | + + + | Race | Unknown | + + + | Ethnic Group | Unknown | + + + Author + + + | Author | [employer] | + + + | Organization | [facility] [employer] [facility] | + + + | Address | Unknown | + + + | Phone | Unavailable | + + + Support + + +---------+ + | Name | Relationship | Address | Phone | + + +---------+ + | Charlotte Andujar | ECON | Unknown | | + + +---------+ + Care Team Providers + +------+ + | Care Hr Coordinator Name | Role | Phone | [...] | | | | | [place] [address] | | | | | | [phone] | | | +--------+ + + + [...] [place] | | | | | | [id number] | | | | | | | [...]
--- OUTSIDE RECORDS SUMMARY | ~2019-03-03 | XMS | Encounter Summary ---
Demographics + + + | Address | [address] | | | [place] [address] | + + + | Home Phone | | + + + | Preferred Language | Unknown | + + + | Marital Status | | + + + | Congregational Affiliation | 1077 | + + + | Race | Unknown | + + + | Ethnic Group | Unknown | + + + Author + + + | Author | [employer] | + + + | Organization | [facility] [employer] [facility] | + + + | Address | Unknown | + + + | Phone | Unavailable | + + + Support + + +---------+ + | Name | Relationship | Address | Phone | + + +---------+ + | Charlotte Andujar | ECON | Unknown | | + + +---------+ + Care Team Providers + +------+ + | Care Asbestos Cement Sheet Supervisor Name | Role | Phone | [...] | | | | | [place] [address] | | | | | | [phone] | | | +--------+ + + + [...] [place] | | | | | | [id number] | | | | | | | [...] + + + + + | Specific [place], [place] | 1.009 | 1.005 - [phone] [...]
--- OUTSIDE RECORDS SUMMARY | ~2019-03-03 | XMS | Encounter Summary ---
Demographics + + + | Address | [address] | | | [place] [address] | + + + | Home Phone | | + + + | Preferred Language | Unknown | + + + | Marital Status | | + + + | Christian Affiliation | 1077 | + + + | Race | Unknown | + + + | Ethnic Group | Unknown | + + + Author + + + | Author | [employer] | + + + | Organization | [facility] | + + + | Address | Unknown | + + + | Phone | Unavailable | + + + Support + + +---------+ + | Name | Relationship | Address | Phone | + + +---------+ + | Charlotte Andujar | ECON | Unknown | | + + +---------+ + Care Team Providers + +------+ + | Care Water Safety Teacher Name | Role | Phone | [...] 02/16/19) | | | | [place] [address] | | | | | | [phone] | | | +--------+ + + + [...] [place] | | | | | | [address] | | | | | | | | +--------+---------+ + + + as of this encounter Visit Diagnoses Not on filein this encounter"
--- OUTSIDE RECORDS SUMMARY | ~2019-03-03 | XMS | Encounter Summary ---
Demographics + + + | Address | [address] | | | [place] [address] | + + + | Home Phone | | + + + | Preferred Language | Unknown | + + + | Marital Status | | + + + | Episcopalian Affiliation | 1077 | + + + | Race | Unknown | + + + | Ethnic Group | Unknown | + + + Author + + + | Author | [employer] | + + + | Organization | [facility] | + + + | Address | Unknown | + + + | Phone | Unavailable | + + + Support + + +---------+ + | Name | Relationship | Address | Phone | + + +---------+ + | Charlotte Andujar | ECON | Unknown | | + + +---------+ + Care Team Providers + +------+ + | Care Professor Of Economics Name | Role | Phone | + [...] | | | | | [place] [address] | | | | | | [phone] | | | +--------+ + + + [...] | | | | | | [address] [place], [place] | | | | | | [phone] | | | | | | | | +--------+---------+ + + + as of this encounter Visit Diagnoses Not on filein this encounter"
[~2019-03-03 06:55] MED LIST changes: +ASPIR 8181 MG PO; +BENEFIBER1 EAC1 PO; +CALCITRIOL0.25 MCG PO; +CIPRO500 MG PO; +DOXEPIN HCL10 MG PO; +FLAGYL500 MG PO; +GABAPENTIN100 MG PO; +MIRALAX17 GM PO; +SLOW-MAG71.5 MG PO; +VITAMIN D32000 UNI1 PO
--- OUTSIDE RECORDS SUMMARY | 2019-03-03 06:58 | XMS ---
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 No recent Security Events currently on file CRITERIA MET - Group Notification - [facility] [place] [facility] - Has Care Guidelines - PDMP - [facility] [place] [facility] - 2 Visits in 30 Days CARE PROVIDERS Phylicia Vazquez Manager Site/Account [employer] 08/31/2018-Current PHONE: [phone] [facility] 02/16/2019-Current HARDIK Van PHONE: Unknown Herminia Rivera Manager Site/Account [employer] 08/31/2018-Current PHONE: [phone] Herminia Rivera Manager Site/Account [employer] 08/31/2018-Current PHONE: [phone] Herminia Rivera Primary Care 08/31/2018-Current PHONE: [phone] Domenic Gutiérrez Case or [employer] Tamper Current PHONE: [phone] HARDIK Van Primary Care 08/31/2015-Rodney COYNE PHONE: Unknown [facility] has no Care Guidelines for this patient. Care History Medical/Surgical 05/28/2018 [facility] - Patient currently sees director e learning Dr Acuna and patient has last seen [...] returns to ED please contact Community Health Worker Lizzy at [phone]. These are guidelines and the provider should exercise clinical judgment when providing care. 07/25/2017 [facility] HISTORY: COPD, DMII, HTN, CVA X3, KIDNEY FAIL STAGE 3 WITH SHORT TERM DIALYSIS, CPAP USE SURGERY HISTORY: GILBERT ESPINAL, PANCRETIC TUMOR REMOVAL Gloria VISIT COUNT (12 MO.) 3 [facility] H. TOTAL 3 NOTE: Visits indicate total known visits. ED/UCC VISIT TRACKING (12 MO.) 03/03/2019 06:55 [facility] TYPE[facility] Emergency COMPLAINT: - SOB 02/15/2019 22:21 [facility] TYPE: Emergency COMPLAINT: - CONSTIPATED 05/27/2018 19:50 [facility] TYPE: Emergency COMPLAINT: - BLOOD PRESSURE PROBLEM DIAGNOSES: - Other [place] [facility] (current) drug therapy - Unspecified abdominal pain - Nicotine dependence, unspecified, uncomplicated - Urinary tract infection, site not specified - oysterman (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 of insulin - Chronic kidney disease, stage 4 (severe) - Chronic obstructive pulmonary disease, unspecified - Hypertensive chronic kidney disease with stage 1 through stage 4 chronic kidney disease, or unspecified chronic kidney disease - Type 2 diabetes mellitus without complications INPATIENT VISIT TRACKING (12 MO.) 02/15/2019 22:[address] [facility] [place] TYPE: Observation COMPLAINT: - STERCORAL COLITIS DIAGNOSES: - assisted (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 of antithrombotics/antiplatelets - Hypertensive chronic kidney disease with stage 1 through stage 4 chronic kidney disease, or unspecified chronic kidney disease - Dependence on wheelchair - Nicotine dependence, unspecified, uncomplicated - Obstructive sleep apnea (adult) (pediatric) - Chronic kidney disease, stage 4 (severe) - Type 2 diabetes mellitus with diabetic chronic kidney disease - Constipation, unspecified - Unspecified abdominal pain - Personal history of transient ischemic attack (TIA), and cerebral infarction without residual deficits - oysterman (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 of insulin - Accidental puncture and laceration of a digestive system organ or structure during a digestive system procedure - Chronic obstructive pulmonary disease, unspecified - Noninfective gastroenteritis and colitis, unspecified - Gastro-esophageal reflux disease without esophagitis - Other long term care administrator (current) drug therapy - Other chronic pain - Acquired absence of left leg above knee [email or web address]
[2019-03-03] MEDS ORDERED: PROVENTIL HFA6.7 GM INH (11:09)
[2019-03-03] MEDS ORDERED: ALBUTEROL2.5 MG/3 M INH (11:09)
[2019-03-03] MEDS ORDERED: PREDNISONE20 MG PO (11:09)
--- NOTE | 2019-03-03 15:34 | EKG ---
[facility] [address] [facility] [place], [place] [address] Signed Normal sinus rhythm Normal ECG When compared with ECG of 01-AUG-2017 15:38, QT has lengthened Confirmed by BROOKE FERNÁNDEZ DO ([id number]) on 03/03/2019 3:33:57 PM Electronically Signed By: BROOKE FERNÁNDEZ DO 03/03/19 1534 PATIENT NAME: PORFIRIO ZAVALA [place]AL[place] Electrocardiogram DATE OF : 40 PHYSICIAN: BROOKE FERNÁNDEZ DO REPORT #: [id number] REPORT IS CONFIDENTIAL AND NOT TO BE RELEASED WITHOUT AUTHORIZATION
--- NOTE | 2019-03-03 15:34 | EKG ---
[facility] [address] [facility] [place], [place] [address] Signed Normal sinus rhythm Normal ECG When compared with ECG of 03-MAR-2019 07:07, (Unconfirmed) No significant change was found Confirmed by BROOKE FERNÁNDEZ DO ([id number]) on 03/03/2019 3:34:42 PM Electronically Signed By: BROOKE FERNÁNDEZ DO 03/03/19 1534 PATIENT NAME: ZAVALAPORFIRIOTONIA CHACON Electrocardiogram DATE OF : 40 PHYSICIAN: BROOKE FERNÁNDEZ DO REPORT #: [id number] REPORT IS CONFIDENTIAL AND NOT TO BE RELEASED WITHOUT AUTHORIZATION
== END 2019-03-03 11:28 | disposition home or self-care (01) ==
LOC: ED 06:55
DX: J44.1 Chronic obstructive pulmonary disease with (acute) exacerbation (principal); E11.22 Type 2 diabetes mellitus with diabetic chronic kidney disease; I12.9 Hypertensive chronic kidney disease with stage 1 through stage 4 chronic kidney disease, or unspecified chronic kidney disease; N18.4 Chronic kidney disease, stage 4 (severe); Z86.73 Personal history of transient ischemic attack (TIA), and cerebral infarction without residual deficits; F17.200 Nicotine dependence, unspecified, uncomplicated; Z79.899 Other long term (current) drug therapy; Z79.4 Long term (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 of insulin; Z79.82 Long term (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 of aspirin
CPT/HCPCS: 71045; 80053; 83735; 83880; 84484; 85025; 93005; 93010; 94640; 96374; 96375; 99285-25; 99406; J2930

== ENCOUNTER 2019-09-27 12:21 | Inpatient (IN) | payer MEDICARE, OTHER ==
[~2019-09-27] VITALS: Ht 172.7 cm; Wt 87.8 kg
--- OUTSIDE RECORDS SUMMARY | ~2019-09-27 | XMS | Encounter Summary ---
Demographics + + + | Address | [address] | | | [place] [address] | + + + | Home Phone [...] Team Providers + +------+ + | Care Continuous Improvement Specialist Name | Role | Phone | + +------+ + | Rahul Silva MD | PCP | Unavailable | + +------+ + Reason for Visit + + + | Reason | Comments | + + + | New Patient | 08/26 appointment | + + + Encounter Details +--------+ + + + + | Date | Type | Department | Care Team | Description | +--------+ + + + + | 08/25/ | Telephone | [facility] | Brian Orosco MD | New Patient (08/26 | | 2019 | | VASCULAR SURGERY | [address] | appointment) | | | | [address] [place] | [place], [place] | | | | | [place], [place] | [address] | | | | | [address] | [phone] | | | | | [phone] | | | +--------+ + + + [...] Tobacco: | Chew | | | | Current User | | | | + +------+---+---+ + [...] Description | +--------+---------+ + + + | 09/30/ | Office | Vascular Surgery | Trisha Conner DNP | | | 2019 | Visit | | [address] | | | | | | [place] | | | | | | [address] | | | | | | | | +--------+---------+ + + + | 10/04/ | Office | Nephrology | Farrukh Acuna MD | | | 2019 | Visit | | [address] [facility] | | | | | | [address] [place] | | | | | | [address] | | | | | | | | +--------+---------+ + + + documented as of this encounter Visit Diagnoses Not on filedocumented in this encounter"
--- OUTSIDE RECORDS SUMMARY | ~2019-09-27 | XMS | Encounter Summary ---
Demographics + + + | Address | [address] | | | [place] [address] | + + + | Home Phone | | + + + | Preferred Language | Unknown | + + + | Marital Status | Single | + + + | Zoroastrianism Affiliation | PRO | + + + | Race | White | + + + | Ethnic Group | Not or | + + + Author + + + | Author | [facility] | + + + | Organization | [facility] | + + + | Address | Unknown | + + + | Phone | Unavailable | + + + Support + + + + + | Name | Relationship | Address | Phone | + + + + + | Darci Zavala | [address] | [place] | | | | | [address] | | + + + + + Care Team Providers + +------+ + | Care Mover Name | Role | Phone | + +------+ + PCP | Unavailable | + +------+ + Encounter Details +--------+ + + + + | Date | Type | Department | Care Team | Description | +--------+ + + + + | 08/05/ | Transcribed | [facility] at | [place], Other | Transcribed | | 1995 | | [facility] [address] | | | | | | [address] | | | | | | Mailcode: [id number] | | | | | | [address] [place] | | | | | | [place], | | | | | | [place] [address] | | | | | | [phone] | | | +--------+ + + + [...] as of this encounter Progress Notes Interface, Medical Lab Assistant In - 02/17/2007 3:02 AM PDT [address] [address] or August 05, 1996 RUBIA VALLES MD [address] [facility] [address] RE:PORFIRIO ZAVALA MR#:[id number] Valles: Mr. Porfirio Zavala returned to the [facility] today for a followup visit. 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 Mr. Zavala has failed numerous femoral nerve blocks, sciatic nerve blocks, and spinal cord blocks, and was at one time enrolled in the [facility] Pain [facility]. Mr. Zavala's pain is currently still 8/10 with a constant ache at the end of his stump. He is currently taking eight Darvocets a day which helps control his pain and can reduce it sometimes down to 5/10; however, he would like to find alternate methods to manage his pain as the Darvocet interferes with his lifestyle. At this time, we have decided to try a trial of Neurontin, and we will again try to get this patient approved for a visit with Dr. Khan for psychological assessment. Thank you for participating in the continuing care of this patient. Sincerely, Fabian Jarrett, MS-4 dictating for: Alina Moise M.D. Professor and Director Digital Sales, Division of Neurosurgery MARYANA/sajan cc: Seven Khan, Ph.D. Clinical Psychologist-Neuropsychologist documented in this encounter Plan of Treatment Not on filedocumented as of this encounter Visit Diagnoses Not on filedocumented in this encounter"
--- OUTSIDE RECORDS SUMMARY | ~2019-09-27 | XMS | Encounter Summary ---
Demographics + + + | Address | [address] | | | [place] [address] | + + + | Home Phone | | + + + | Preferred Language | Unknown | + + + | Marital Status | | + + + | Restoration Affiliation | 1077 | + + + | Race | Unknown | + + + | Ethnic Group | Unknown | + + + Author + + + | Author | [facility] | | | and [place] | + + + | Organization | [facility] | | | [...] Team Providers + +------+ + | Care Load Out Worker Name | Role | Phone | + +------+ + | Rahul Silva MD | PCP | Unavailable | + +------+ + Reason for Visit +---------+ + | Reason | Comments | +---------+ + | Consult | AVF creation | +---------+ + Encounter Details +--------+---------+ + + + | Date | Type | Department | Care Team | Description | +--------+---------+ + + + | 08/26/ | Office | [facility] | Trisha Conner DNP | CKD (chronic kidney | | 2019 | Visit | VASCULAR SURGERY | [address] | disease) stage 5, | | | | [address] [place] | [place], [place] | GFR less than 15 | | | | [place], [place] | [address] | ml/min (HCC) | | | | [address] | | (Primary Dx) | | | | [phone] | Brian Orosco MD | | | | | | [address] | | | | | | [place], [place] | | | | | | [address] | | | | | | [phone] | | | | | | | | +--------+---------+ + + + Social History + +-------+ [...] this encounter Last Filed Vital Signs + +---------+ + | Vital Sign | Reading | Time Taken | + +---------+ + | Blood Pressure | 146/66 | 08/26/2019 1039 PDT | + +---------+ + | Pulse | 62 | 08/26/2019 1039 PDT | + +---------+ + | Temperature | - | - | + +---------+ + | Respiratory Rate | - | - | + +---------+ + | Oxygen Saturation | 93% | 08/26/20191038 PDT | + +---------+ + | Inhaled Oxygen | - | - | | Concentration | | | + +---------+ + | Weight | - | - | + +---------+ + | Height | - | - | + +---------+ + | Body Mass Index | - | - | + +---------+ + documented in this encounter Progress Notes Brian Orosoc MD - 08/26/2019 1100 PDTFormatting of this note might be different from the kathleen gerald. Subjective Subjective Mr. Andujar is a pleasant 79 y.o. male with PMH significant for COPD, DM, HTN, HLD, anemia, LE embolism, LLE amputation, and stroke who is referred to me for arteriovenous fistula plac ement. The patient's kidneys are failing and he will need dialysis soon. The patient is not currently on dialysis. The patient's last GFR was 12 around two weeks ago. Patient indicates that he had underwent chest tunneled catheter dialysis in the past but his kidney function had improved. The patient is followed by Dr. Acuna, Nephrology. The patient had upper extrem ity vein mapping on 08/20/19 with impression shown below. The patient is right hand dominant. The patient reports that he lost his left leg due to a blood clot. The patient is currently on Plavix, daily baby aspirin, and a statin. The patient is a current smoker. UPPER EXTREMITY VEIN MAPPING Bilateral upper extremity dialysis mapping. Measurements above. Near occlusive thrombus within the mid right cephalic vein. Nonocclusive thrombus within the left subclavian vein proximally that is likely more chronic in nature. 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) Renal insufficiency Stroke (HCC) Stump pain (HCC) Past Surgical History: Procedure Laterality Date ABOVE KNEE AMPUTATION Left AMPUTATION Above knee amputation of Left Lower extremity CHOLECYSTECTOMY COLONOSCOPY HIATAL HERNIA REPAIR LEG SURGERY x2 on stump of amputated leg OTHER SURGICAL HISTORY CATARACT EXTRACTION BILATERAL PANCREAS SURGERY tumor removal Social History Tobacco Use Smoking status: Current Every Day Smoker Packs/day: 1.00 Smokeless tobacco: Current User Types: Chew Substance Use Topics Alcohol use: No Drug use: Not on file Comment: Drug use: No Family History Family history unknown: Yes Problem Relation Age of Onset Family history unknown: Yes Hypertension Mother Cancer Father Heart disease Father Hypertension Brother Current Outpatient Medications on File Prior to Visit Medication Sig Dispense Refill acyclovir (ZOVIRAX) 400 MG tablet Take 400 mg by mouth 2 times daily. Takes 400mg AM an d HS albuterol 2.5 mg/3 mL nebulizer solution Take 2.5 mg by nebulization every 6 hours as n eeded. albuterol-ipratropium (DUONEB) 2.5-0.5 mg/3 mL SOLN Take 3 mLs by nebulization Before b reakfast, dinner and bedtime. amlodipine (NORVASC) 10 MG tablet Take 10 mg by mouth Daily. aspirin 81 mg chewable tablet Take 81 mg by mouth Daily. atenolol (TENORMIN) 50 mg tablet Take 50 mg by mouth Daily. atorvaSTATin (LIPITOR) 80 MG tablet Take 80 mg by mouth daily. atorvaSTATin (LIPITOR) 80 MG tablet Take 80 mg by mouth nightly. calcitriol (ROCALTROL) 0.25 mcg capsule Take 1 capsule by mouth Daily. 90 capsule 3 clopidogrel (PLAVIX) 75 mg tablet Take 75 mg by mouth Daily. cyanocobalamin (VITAMIN B-12) 1000 MCG tablet Take 1,000 mcg by mouth every 14 days. doxepin (SINEQUAN) 10 mg capsule 50 mg. 0 ferrous sulfate 324 (65 Fe) MG EC tablet Take 65 mg of iron by mouth 2 (two) times hugh y with meals. gabapentin (NEURONTIN) 400 mg capsule Take 400 mg by mouth nightly. insulin aspart (NOVOLOG PENFILL) 100 units/mL injection cartridge Inject under the ski n 3 times daily (before meals). Per following sliding scale: 151 200 = 2 units, 201-250 = 4 units, 251 300 = 6 units, 301 350 = 8 units, greater than 350 = 10 units and call M.D. ipratropium (ATROVENT) 500 mcg/2.5 mL nebulizer solution Take 0.5 mg by nebulization 4 (four) times daily. LANTUS SOLOSTAR 100 UNIT/ML injection (pen) 0 LINZESS 145 MCG capsule 1 lisinopril (PRINIVIL, ZESTRIL) 10 mg tablet 1 ondansetron (ZOFRAN ODT) 8 mg disintegrating tablet 0 ONE TOUCH ULTRA TEST strip USE TO TEST BLOOD SUGAR five times a day 1 oxyCODONE (ROXICODONE) 15 mg immediate release tablet Take 15 mg by mouth every 4 hours . predniSONE (DELTASONE) 20 mg tablet take 2 tablets by mouth once daily for 4 days 0 sodium bicarbonate 650 mg tablet 0 torsemide (DEMADEX) 20 mg tablet 1 VENTOLIN HFA 108 (90 Base) MCG/ACT inhaler inhale 2 puffs by mouth every 4 hours if nee ded for shortness of breath 0 No current facility-administered medications on file prior to visit. No Known Allergies Comprehensive ROS performed and pertinent items described in the HPI. Objective Objective Vitals:reviewed CONSTITUTIONAL: Conversant, well developed, NAD EYES: Anicteric sclerae, no lid drag, no proptosis RESP: Normal effort, regular, even, unlabored rate CV: No peripheral edema, rate regular SKIN: [place], warm, dry without rash/lesion MS: ROM not limited, no digital cyanosis, normal gait NEURO: Cranial nerves II-XII grossly intact, A&O times 3 PSYCH: appropriate affect, speech and tone, judgement and insight intact Vascular: Palpable radial and brachial pulses bilaterally. Assessment Assessment and Plan UE vein mapping results from 08/20/19 reviewed and discussed with the patient. The patient h as a clot in the subclavian vein in the left upper extremity, so I would like to create dial ysis access in the patient's right upper extremity instead to prevent complications. Only us able vein in the right upper extremity is the basilic vein due to clot in the right cephalic vein. The patient will need two procedures for AVF creation and then superficialization. D iscussed surgical option and mechanism of right upper extremity fistula creation with the pa tient. We have discussed benefits and risks of this procedure, including infection, bleeding , need for additional surgeries, arterial steal syndrome. Patient is understanding and agree able to right upper extremity fistula creation, and has signed consent for surgery. Patient was instructed not to eat or drink fluids after 11:59 PM on the day before surgery. The adriana ent is a cigarette smoker. I advised patient to quit, and offered support. All questions and concerns addressed. Patient will follow up after surgery. Patient understands and is agreea ble. Attending Note: Documentation assistance provided by Joen Salise (Scribe). Information dex rded by the scribe has been reviewed and validated by me. I agree with its contents. Signed by: Justyn Yanes, Franciscoibe 08/26/19, 10:49 Brian Orosco MD documented in th is encounter Plan of Treatment +--------+---------+ + + + | Date | Type | Specialty | Care Team | Description | +--------+---------+ + + + | 09/30/ | Office | Vascular Surgery | Trisha Conner DNP | | | 2018 | Visit | | [address] | | | | | | [place] | | | | | | [id number] | | | | | | | | +--------+---------+ + + + | 10/04/ | Office | Nephrology | Farrukh Acuna MD | | | 2018 | Visit | | [address] [place] | | | | | | [address] [place] | | | | | | [address] | | | | | | | | +--------+---------+ + + + + +--------+ + + | Name | Priori | Associated Diagnoses | Order Schedule | | | ty | | | + +--------+ + + | Basic Metabolic Panel | Routin | CKD (chronic | 1 Occurrences | | | e | kidney disease) | starting 08/26/2019 | | | | stage 5, GFR less | until 08/26/2020 | | | | than 15 ml/min (HCC) | | + +--------+ + + | CBC no Differential | Routin | CKD (chronic | 1 Occurrences | | | e | kidney disease) | starting 08/26/2019 | | | | stage 5, GFR less | until 08/26/2020 | | | | than 15 ml/min (HCC) | | + +--------+ + + documented as of this encounter Visit Diagnoses + + | Diagnosis | + + | CKD (chronic kidney disease) stage 5, GFR less than 15 ml/min ([facility]) - Primary Chronic | | kidney disease, Stage V | + + documented in this encounter"
--- OUTSIDE RECORDS SUMMARY | ~2019-09-27 | XMS | Encounter Summary ---
Demographics + + + | Address | [address] | | | [place] [address] | + + + | Home Phone | | + + + | Preferred Language | Unknown | + + + | Marital Status | | + + + | Latter-Day Affiliation | 1077 | + + + [...] Team Providers + +------+ + | Care Black And White Printer Operator Name | Role | Phone | + +------+ + | Rahul Silva MD | PCP | Unavailable | + +------+ + Encounter Details +--------+ + + + + | Date | Type | Department | Care Team | Description | +--------+ + + + + | 09/07/ | Preadmit | [facility] | Brian Orosco MD | | | 2019 | Visit | [facility] | [address] | | | | | CLINIC [address] | | | | | [address] [place], [place] | [address] | | | | | [address] | [phone] | | | | | [phone] | | | +--------+ + + + [...] + + + | Blood Pressure | 137/64 | 09/07/2019 1353 PDT | + + + + | Pulse | 62 | 09/07/2019 1353 PDT | + + + + | Temperature | - | - | + + + + | Respiratory Rate | - | - | + + + + | Oxygen Saturation | 94% | 09/07/20191352 PDT | + + + + | Inhaled Oxygen | - | - | | Concentration | | | + + + + | Weight | 81.6 kg (179 lb 14.3 | 09/07/20191352 PDT | | | oz) | | + + + + | Height | 172.7 cm (5' 8") | 09/07/20191352 PDT | + + + + | Body Mass Index | 27.35 | 09/07/20191352 PDT | + + + + documented in this encounter Patient Instructions Instructions Wilfred Duarte RN - 09/07/2019Formatting of this note might be different fr om the original. Outpatient Medications Marked as Taking for the 09/07/19 encounter (Preadmit Visit) with [facility] 4 Medication Sig Instructions acyclovir (ZOVIRAX) 400 MG tablet Take 400 mg by mouth 2 times daily. Takes 400mg AM an d HS DO NOT TAKE day of procedure albuterol 2.5 mg/3 mL nebulizer solution Take 2.5 mg by nebulization every 6 hours as n eeded for Wheezing. TAKE day of procedure, if needed albuterol-ipratropium (DUONEB) 2.5-0.5 mg/3 mL SOLN Take 3 mLs by nebulization Before b reakfast, dinner and bedtime. TAKE day of procedure, if needed aluminum & magnesium hydroxide-simethicone (MAALOX PLUS DOUBLE STRENGTH) 400-400-40 mg/ 5 mL suspension Take 15 mLs by mouth every 4 hours as needed for Indigestion. DO NOT TAKE da y of procedure amlodipine (NORVASC) 10 MG tablet Take 10 mg by mouth Daily. TAKE day of procedure aspirin 81 mg chewable tablet Take 81 mg by mouth Daily. DO NOT TAKE day of procedure atenolol (TENORMIN) 50 mg tablet Take 50 mg by mouth Daily. TAKE day of procedure atorvaSTATin (LIPITOR) 80 MG tablet Take 80 mg by mouth nightly. DO NOT TAKE day of pro cedure calcitriol (ROCALTROL) 0.25 mcg capsule Take 1 capsule by mouth Daily. DO NOT TAKE day of procedure CHOLECALCIFEROL PO Take 1 tablet by mouth Daily. DO NOT TAKE day of procedure clopidogrel (PLAVIX) 75 mg tablet Take 75 mg by mouth Daily. DO NOT TAKE day of procedu re cyanocobalamin (VITAMIN B-12) 1000 MCG tablet Take 1,000 mcg by mouth every 14 days. DO NOT TAKE day of procedure docusate-senna (SENOKOT-S) 50-8.6 mg per tablet Take 2 tablets by mouth Daily. DO NOT T HALIE day of procedure doxepin (SINEQUAN) 10 mg capsule 50 mg. DO NOT TAKE day of procedure ferrous sulfate 324 (65 Fe) MG EC tablet Take 65 mg of iron by mouth 4 times daily with meals. DO NOT TAKE day of procedure gabapentin (NEURONTIN) 400 mg capsule Take 400 mg by mouth nightly. DO NOT TAKE day of procedure insulin aspart (NOVOLOG PENFILL) 100 units/mL injection cartridge Inject under the ski n 3 times daily (before meals). Per following sliding scale: 151 200 = 2 units, 201-250 = 4 units, 251 300 = 6 units, 301 350 = 8 units, greater than 350 = 10 units and call M.D. DO NOT TAKE day of procedure ipratropium (ATROVENT) 500 mcg/2.5 mL nebulizer solution Take 0.5 mg by nebulization 4 (four) times daily. TAKE day of procedure, if needed LANTUS SOLOSTAR 100 UNIT/ML injection (pen) Inject 25 Units under the skin nightly. DO NOT TAKE day of procedure LINZESS 145 MCG capsule DO NOT TAKE day of procedure lisinopril (PRINIVIL, ZESTRIL) 10 mg tablet DO NOT TAKE day of procedure Magnesium 65 MG TABS Take 1 tablet by mouth 2 times daily. DO NOT TAKE day of procedure ondansetron (ZOFRAN ODT) 8 mg disintegrating tablet DO NOT TAKE day of procedure oxyCODONE (ROXICODONE) 15 mg immediate release tablet Take 15 mg by mouth every 4 hours . TAKE day of procedure, if needed oxygen Inhale 4 L into the lungs as needed (If napping or having increased pain during the day). TAKE day of procedure, if needed sodium bicarbonate 650 mg tablet DO NOT TAKE day of procedure torsemide (DEMADEX) 20 mg tablet Take 40 mg by mouth Daily. DO NOT TAKE day of procedur e VENTOLIN HFA 108 (90 Base) MCG/ACT inhaler inhale 2 puffs by mouth every 4 hours if nee ded for shortness of breath TAKE day of procedure, if needed PLEASE NOTE THE FOLLOWING ADDITIONAL INFORMATION: TYLENOL/acetaminophen MAY BE TAKEN FOR PAIN UP TO THE SURGERY TIME. BLOOD THINNERS, such as 325mg Aspirin, Ibuprofen, Naproxen, SHOULD NOT BE TAKEN OF 09/07 UNTIL AFTER SURGERY. Then follow Doctor recommendation. DO NOT STOP AT LOBBY REGISTRATION. TAKE THE ELEVATOR BY THE JANYI TO THE SECOND FLOOR to CH JANNA IN FOR SURGERY. Once elevator door opens you step out to check-in desk and are in the [facility] waiting room. AttachmentsThe following attachments cannot be sent through Care Everywhere.Hemodialysis Ac cess, Creating a (Tajik)Dialysis, Arteriovenous (AV) Fistula for (Tajik)documented in is encounter Plan of Treatment +--------+---------+ + + + | Date | Type | Specialty | Care Team | Description | +--------+---------+ + + + | 09/30/ | Office | Vascular Surgery | Trisha Conner DNP | | | 2018 | Visit | | [address] | | | | | | [place] | | | | | | [address] | | | | | | | | +--------+---------+ + + + | 10/04/ | Office | Nephrology | Farrukh Acuna MD | | | 2018 | Visit | | [address] [facility] | | | | | | [address] [place] | | | | | | [address] | | | | | | | | +--------+---------+ + + + documented as of this encounter Procedures + +--------+ + + + | Procedure Name | Priori | Date/Time | Associated Diagnosis | Comments | | | ty | | | | + +--------+ + + + | CBC WITH | Timed | 09/07/2019 | | Results for this | | DIFFERENTIAL | | 13:58 PDT | | procedure are in the | | | | | | results section. | + +--------+ + + + | BASIC METABOLIC | Timed | 09/07/2019 | | Results for this | | PANEL | | 13:58 PDT | | procedure are in the | | | | | | results section. | + +--------+ + + + | ECG 12 LEAD | Timed | 09/07/2019 | | Results for this | | | | 13:48 PDT | | procedure are in the | | | | | | results section. | + +--------+ + + + documented in this encounter Results Basic Metabolic Panel (09/07/2019 13:58 PDT) + + + + + + | Component | Value | Ref Range | Performed | Pathologist | | | | | At | Signature | + + + + + + | Na | 137 | 135 - 145 | [facility] | | | | | mmol/L | LABORATORY | | + + + + + + | K | 4.9 | 3.5 - 4.9 | [facility] | | | | | mmol/L | LABORATORY | | + + + + + + | Cl | 102 | 99 - 109 mmol/L | [facility] | | | | | | LABORATORY | | + + + + + + | CO2 | 31 | 23 - 32 mmol/L | [facility] | | | | | | LABORATORY | | + + + + + + | Anion Gap | 9 | 5 - 20 mmol/L | [facility] | | | | | | LABORATORY | | + + + + + + | Glucose | 145 (H) | 65 - 99 mg/dL | [facility] | | | | | | LABORATORY | | + + + + + + | BUN | 44 (H) | 8 - 25 mg/dL | [facility] | | | | | | LABORATORY | | + + + + + + | Creatinine | 4.8 (H) | 0.70 - 1.30 | [facility] | | | | | mg/dL | LABORATORY | | + + + + + + | BUN/Creatin | 9 | | [facility] | | | ine Ratio | | | LABORATORY | | + + + + + + | Calcium | 10.5 | 8.5 - 10.5 | [facility] | | | | | mg/dL | LABORATORY | | + + + + + + | Estimated | 12 (L)Comment: GFR <60: | >60 | [facility] | | | GFR | CHRONIC KIDNEY DISEASE, | mL/min/1.73m2 | LABORATORY | | | | IF FOUND OVER A 3 MONTH | | | | | | PERIOD.GFR <15: KIDNEY | | | | | | FAILURE.FOR | | | | | | AMERICANS, MULTIPLY THE | | | | | | CALCULATED GFR BY | | | | | | 1.210.This eGFR is | | | | | | calculated using the | | | | | | MDRD IDID traceable | | | | | | equation.Testing | | | | | | performed at [facility], [address] | | | | | [facility], | | | | | | [place] [address] | | | | + + + + + + + + | Specimen | + + | Blood | + + + + + + + | Performing | Address | City/State/Zipcode | Phone Number | | Organization | | | | + + + + + | [facility] | [address] | [place] [address] | [phone] | + + + + + CBC with Differential (09/07/2019 13:58 PDT) + + + + + + | Component | Value | Ref Range | Performed | Pathologist | | | | | At | Signature | + + + + + + | WBC | 9.43 | 3.80 - 11.00 | [facility] | | | | | K/uL | LABORATORY | | + + + + + + | RBC | 3.66 (L) | 4.20 - 5.70 | [facility] | | | | | M/uL | LABORATORY | | + + + + + + | Hemoglobin | 10.5 (L) | 13.2 - 17.0 | [facility] | | | | | g/dL | LABORATORY | | + + + + + + | Hematocrit | 31.0 (L) | 39.0 - 50.0 % | [facility] | | | | | | LABORATORY | | + + + + + + | MCV | 84.5 | 80.0 - 100.0 fl | [facility] | | | | | | LABORATORY | | + + + + + + | MCH | 28.7 | 27.0 - 34.0 pg | [facility] | | | | | | LABORATORY | | + + + + + + | MCHC | 34.0 | 32.0 - 35.5 | [facility] | | | | | g/dL | LABORATORY | | + + + + + + | RDW-SD | 45.1 | 37 - 53 fl | [facility] | | | | | | LABORATORY | | + + + + + + | Platelet | 245 | 150 - 400 K/uL | [facility] | | | Count | | | LABORATORY | | + + + + + + | MPV | 8.7 | fl | [facility] | | | | | | LABORATORY | | + + + + + + | Diff Type | AUTOMATED | | [facility] | | | | | | LABORATORY | | + + + + + + | % | 69.52 | % | [facility] | | | Neutrophils | | | LABORATORY | | + + + + + + | % | 12.90 | % | [facility] | | | Lymphocytes | | | LABORATORY | | + + + + + + | Monocyte % | 9.81 | % | [facility] | | | | | | LABORATORY | | + + + + + + | Eosinophils | 6.86 | % | [facility] | | | % | | | LABORATORY | | + + + + + + | Basophils % | 0.91 | % | [facility] | | | | | | LABORATORY | | + + + + + + | Neutrophils | 6.55 | 1.90 - 7.40 | [facility] | | | , Absolute | | K/uL | LABORATORY | | + + + + + + | Absolute | 1.22 | 1.00 - 3.90 | [facility] | | | Lymphocytes | | K/uL | LABORATORY | | + + + + + + | Absolute | 0.92 (H) | 0.00 - 0.80 | [facility] | | | Monocytes | | K/uL | LABORATORY | | + + + + + + | Eosinophils | 0.65 (H) | 0.00 - 0.50 | [facility] | | | , Absolute | | K/uL | LABORATORY | | + + + + + + | Basophils, | 0.09Comment: Testing | 0.00 - 0.10 | [facility] | | | Absolute | performed at [facility], [address] | K/uL | LABORATORY | | | | [address], | | | | | | [place] [address] | | | | + + + + + + + + | Specimen | + + | Blood | + + + + + + + | Performing | Address | City/State/Zipcode | Phone Number | | Organization | | | | + + + + + | [facility] | [address] | [place] [address] | [phone] | + + + + + ECG 12 lead (09/07/2019 13:48 PDT) + + + + + + | Component | Value | Ref Range | Performed | Pathologist | | | | | At | Signature | + + + + + + | VENTRICULAR | 62 | BPM | [facility] | | | RATE EKG | | | | | + + + + + + | ATRIAL RATE | 62 | BPM | [facility] | | + + + + + + | P-R | 192 | ms | [facility] | | | INTERVAL | | | | | + + + + + + | QRS | 104 | ms | [facility] | | | DURATION | | | | | + + + + + + | Q-T | 428 | ms | [facility] | | | INTERVAL | | | | | + + + + + + | Q-T | 434 | ms | [facility] | | | INTERVAL | | | | | | (CORRECTED) | | | | | + + + + + + | P WAVE AXIS | -3 | degrees | [facility] | | + + + + + + | QRS AXIS | 52 | degrees | [facility] | | + + + + + + | T AXIS | 56 | degrees | [facility] | | + + + + + + | INTERPRETAT | Normal sinus | | [facility] | | | ION TEXT | rhythmNormal ECGWhen | | | | | | compared with ECG of | | | | | | 28-MAY-2003 | | | | | | 15:57,Previous ECG has | | | | | | undetermined rhythm, | | | | | | needs reviewConfirmed by | | | | | | DELGADO LOZADA ([id number]) on | | | | | | 09/07/2019 4:54:29 PM | | | | + + + [...]
--- OUTSIDE RECORDS SUMMARY | ~2019-09-27 | XMS | Encounter Summary ---
Demographics + + + | Address | [address] | | | [place] [address] | + + + | Home Phone | | + + + | Preferred Language | Unknown | + + + | Marital Status | Single | + + + | Temple Affiliation | PRO | + + + | Race | White | + + + | Ethnic Group | Not or | + + + Author + + + | Author | [facility] | + + + | Organization | [facility] | + + + | Address | Unknown | + + + | Phone | Unavailable | + + + Support + + + + + | Name | Relationship | Address | Phone | + + + + + | Darci Zavala | VALERIE | [place] | | | | | [address] | | + + + + + Care Team Providers + +------+ + | Care Video Software Engineer Name | Role | Phone | + +------+ + PCP | Unavailable | + +------+ + Encounter Details +--------+ + + + + | Date | Type | Department | Care Team | Description | +--------+ + + + + | 08/05/ | Transcribed | [facility] at | [facility], Other | Transcribed | | 1995 | | [facility] [address] | | | | | | [address] | | | | | | Mailcode: [id number] | | | | | | [address] | | | | | | [place], | | | | | | [place] [address] | | | | | | [phone] | | | +--------+ + + + [...] as of this encounter Progress Notes Interface, Manager Orange In - 02/17/2007 3:02 AM PDT [address] [address] or August 05, 1996 RUBIA VALLES MD [address] [facility] [address] RE:PORFIRIO ZAVALA MR#:[id number] Valles: Mr. Porfirio Zavala returned to the [facility] today for a followup visit. As you recall, he is a 56-year-old man with stump pain and phantom pain secondary to left leg ptmwn-hic-zwnh amputation. Mr. Zavala has failed numerous femoral nerve blocks, sciatic nerve blocks, and spinal cord blocks, and was at one time enrolled in the [facility] Pain [facility]. Mr. Zavala's pain is [...] dictating for: Alina Moise M.D. Professor and Humanities And Languages Professor, Division of Neurosurgery MARYANA/sajan cc: Seven Khan, Ph.D. Clinical Psychologist-Neuropsychologist documented in this encounter Plan of Treatment Not on filedocumented as of this encounter Visit Diagnoses Not on filedocumented in this encounter"
--- OUTSIDE RECORDS SUMMARY | ~2019-09-27 | XMS | Encounter Summary ---
Demographics + + + | Address | [address] | | | [place] [address] | + + + | Home Phone | | + + + | Preferred Language | Unknown | + + + | Marital Status | | + + + | Moravian Affiliation | 1077 | + + + | Race | Unknown | + + + | Ethnic Group | Unknown | + + + Author + + + | Author | [facility] | | | and [place] | + + + | Organization | [facility] | | [...] Team Providers + +------+ + | Care Automotive Designer Name | Role | Phone | + +------+ + | Rahul Silva MD | PCP | Unavailable | + +------+ + Encounter Details +--------+ + + + + | Date | Type | Department | Care Team | Description | +--------+ + + + + | 09/10/ | Ancillary | [facility] | Brian Orosco MD | Marianocelfrancesco (OTHER) | | 2019 | Procedure | [facility] | [address] | | | | | [address] | [place], [place] | | | | | [address] | [address] | | | | | [place], [place] | [phone] | | | | | [address] | | | | | | [phone] | | | +--------+ + + + [...] [place] | | | | | | [place] | | | | | | [address] | | | | | | | | +--------+---------+ + + + | 10/04/ | Office | Nephrology | Farrukh Acuna MD | | | 2018 | Visit | | [address] [facility] [place] | | | | | | [address] | | | | | | [address] | | | | | | | | +--------+---------+ + + + documented as of this encounter Visit Diagnoses Not on filedocumented in this encounter"
--- OUTSIDE RECORDS SUMMARY | ~2019-09-27 | XMS | Encounter Summary ---
Demographics + + + | Address | [address] | | | [place] [address] | + + + | Home Phone | | + + + | Preferred Language | Unknown | + + + | Marital Status | | + + + | Latter-Day Affiliation | 1077 | + + + | Race | Unknown | + + + | Ethnic Group | Unknown | + + + Author + + + | Author | [facility] | | | and [place] | + + + | Organization | [facility] | | | and [place] | + + + | Address | Unknown | + + + | Phone | Unavailable | + + + Support + + +---------+ + | Name | Relationship | Address | Phone | + + +---------+ + | ConCharlotte | ECON | Unknown | | + + +---------+ + Care Team Providers + +------+ + | Care Inspector Welded Parts Name | Role | Phone | + +------+ + | Rahul Silva MD | PCP | Unavailable | + +------+ + Reason for Visit +--------+ + | Reason | Comments | +--------+ + | Other | orders | +--------+ + Encounter Details +--------+ + + + + | Date | Type | Department | Care Team | Description | +--------+ + + + + | 08/10/ | Telephone | [facility] | Brian Orosco MD | Other (orders ) | | 2019 | | VASCULAR SURGERY | [address] | | | | | [address] [place] | [place], [place] | | | | | [place], [place] | [address] | | | | | [address] | [phone] | | | | | [phone] | | | +--------+ + + + [...] | | | | | | [place] | | | | | | [id number] | | | | | | | | +--------+---------+ + + + | 10/04/ | Office | Nephrology | Farrukh Acuna MD | | | 2019 | Visit | | [address] [facility] | | | | | | [address] [address] | | | | | | [address] | | | | | | | | +--------+---------+ + + + documented as of this encounter Visit Diagnoses Not on filedocumented in this encounter"
--- OUTSIDE RECORDS SUMMARY | ~2019-09-27 | XMS | Encounter Summary ---
Demographics + + + | Address | [address] | | | [place] [address] | + + + | Home Phone | | + + + | Preferred Language | Unknown | + + + | Marital Status | | + + + | Hinduism Affiliation | 1077 | + + + [...] Team Providers + +------+ + | Care Front End Software Developer Name | Role | Phone | [...] + + + + | 09/10/ | Anesthesia | [facility] | Venkata Carroll | | | 2019 | [facility] | [address] | | | | | [address] | [address] | | | | | [address] | [place] [address] | | | | | [place], [place] | [phone] | | | | | [address] | | | | | | [phone] | | | +--------+ + + + + Anesthesia Record + + + + + | Procedure Name | Responsible | Anesthesia Start | Anesthesia Stop Time | | | Anesthesiologist | Time | | + + + + + | INSERTION AV FISTULA | Venkata Carroll, | 09/10/19 1307 | 09/10/19 1401 | | (Right BBF) (Right | EMERGENCY ROOM CLERK | | | | Arm Upper) | | | | + + + + + +----+---+ + + | Da | T | Event | Comment | | te | i | | | | | m | | | | | e | | | +----+---+ + + | 10 | 1 | | | | /1 | 2 | | | | 1/ | 4 | | | | 20 | 7 | | | | 19 | | | | +----+---+ + + | | 1 | Anesthesia | | | | 2 | Ready | | | | 5 | | | | | 1 | | | +----+---+ + + | | 1 | Breathing | | | | 3 | Spontaneous | | | | 0 | ly | | | | 6 | | | +----+---+ + + | | 1 | An Start | Reassessment prior to anesthesia induction/procedure. | | | 3 | | | | | 0 | | | | | 7 | | | +----+---+ + + | | 1 | An | | | | 3 | Induction | | | | 1 | | | | | 5 | | | +----+---+ + + | | 1 | Antibiotic | | | | 3 | Given | | | | 1 | | | | | 9 | | | +----+---+ + + | | 1 | Quick Note | timeout | | | 3 | | | | | 3 | | | | | 2 | | | +----+---+ + + | | 1 | First | | | | 3 | Inc/Proc St | | | | 3 | | | | | 3 | | | +----+---+ + + | | 1 | an stop | | | | 4 | data | | | | 0 | | | | | 1 | | | +----+---+ + + | | 1 | An Stop | Patient handed off to recovery nurse. | | | 0 | | | | | 1 | | | +----+---+ + + +------+ | Meds | +------+ + + + | Name | Total | + + + | fentaNYL | 50 mcg | + + + | lidocaine 2% | 80 mg | + + + | propofol | 60 mg | + + + | propofol infusion | 266.71 mg | + + + | ceFAZolin in dextrose (ANCEF) | 2 g | | IVPB 2 g | | + + + | heparin | 3,000 Units | + + + | sodium chloride 0.9% (NS) | 400 mL | | infusion | | + + + + + | Name | + + | N2O Flow Rate (L/Min) | + + | O2 Flow Rate (L/Min) | + + | Insp O2 | + + | Exp N2O | + + | Air Flow Rate (L/Min) | + + | Secondary O2 Flow Rate | + + + + | No blood administrations on file. | + + +--------+ + + + | Type | Details | Placement | Removal | +--------+ + + + | Residu | 09/10/19; 1216 (present upon | 09/10/19 1216 by | | | al | admission); transfemoral (above | Trinidad Ramírez | | | Limb | knee), left | BAN Pina | | | Assess | | | | | ment | | | | +--------+ + + + | Wound | 09/10/19; 1403; Incision; Right; | 09/10/19 1403 by | | | | maci | Sari Liang | | | | | BAN Renee | | +--------+ + + + | Periph | 09/10/19; 1227; Left; Forearm; | 09/10/19 1227 by | 09/10/19 1600 by | | erazoë | [id number]-awa-[id number] catheter system; | Trinidad Ramírez | Leana Pimentel, | | IV | 20 gauge; catheter/device intact; | BAN Pina | BAN | | | gauze and coban applied; | | | | | expected removal post discharge; | | | | | 09/10/19; 1600 | | | +--------+ + + + documented in this encounter Social History + +-------+ +--------+------+ | Tobacco [...] [place] | | | | | | [address] | | | | | | | | +--------+---------+ + + + | 10/04/ | Office | Nephrology | Farrukh Acuna MD | | | 2018 | Visit | | [address] [place] | | | | | | [address] [place] [address] | | | | | | [address] | | | | | | | | +--------+---------+ + + + documented as of this encounter Visit Diagnoses Not on filedocumented in this encounter Administered Medications + +--------+ +------+------+------+ | Medication Order | MAR | Action | Dose | Rate | Site | | | Action | Date | | | | + +--------+ +------+------+------+ | ceFAZolin in dextrose (ANCEF) | Given | 09/10/20 | 2 g | | | | IVPB 2 g 2 g, Intravenous, | | 19 13:08 | | | | | Administer over 30 Minutes, Prior | | PDT | | | | | to Incision, Starting Fri | | | | | | | 09/10/19 at 1111, For 1 dose, | | | | | | | Keep in refrigerator., Pre-op, | | | | | | | Indications: Surgical Prophylaxis | | | | | | + +--------+ +------+------+------+ +---+---+ | | | +---+---+ + +-------+ +--------+---+---+ | fentaNYL (PF) injection | Given | 09/10/20 | 25 mcg | | | | Intravenous, PRN, Starting Fri | | 19 13:15 | | | | | 09/10/19 at 1310, Anesthesia | | PDT | | | | | Intra-op | | | | | | + +-------+ +--------+---+---+ +-------+ +--------+---+---+ | Given | 09/10/20 | 25 mcg | | | | | 19 13:10 | | | | | | PDT | | | | +-------+ +--------+---+---+ +---+---+ | | | +---+---+ + +-------+ +--------+---+---+ | heparin 1,000 units/mL | Given | 09/10/20 | 3,000 | | | | injection Intravenous, PRN, | | 19 13:40 | Units | | | | Starting 09/10/19 at 1340, | | PDT | | | | | Anesthesia Intra-op | | | | | | + +-------+ +--------+---+---+ +---+---+ | | | +---+---+ + +-------+ +-------+---+---+ | lidocaine (PF) 2% injection | Given | 09/10/20 | 80 mg | | | | Intravenous, PRN, Starting Fri | | 19 13:15 | | | | | 09/10/19 at 1315, Anesthesia | | PDT | | | | | Intra-op | | | | | | + +-------+ +-------+---+---+ +---+---+ | | | +---+---+ + +-------+ +-------+---+---+ | propofol (DIPRIVAN) injection | Given | 09/10/20 | 60 mg | | | | Intravenous, PRN, Starting Fri | | 19 13:15 | | | | | 09/10/19 at 1315, Anesthesia | | PDT | | | | | Intra-op | | | | | | + +-------+ +-------+---+---+ +---+---+ | | | +---+---+ + + + + +-------+---+ | propofol infusion (DIPRIVAN) 10 | Rate/Dos | 09/10/20 | 50 | 24.2 | | | mg/mL infusion Intravenous, | e Change | 19 13:53 | mcg/kg/m | mL/hr | | | CONTINUOUS PRN, Starting Fri | | PDT | in | | | | 09/10/19 at 1315, Anesthesia | | | | | | | Intra-op | | | | | | + + + + +-------+---+ + + + +-------+---+ | Rate/Dose Change | 09/10/20 | 65 | 31.5 | | | | 19 13:51 | mcg/kg/m | mL/hr | | | | PDT | in | | | + + + +-------+---+ | Rate/Dose Change | 09/10/20 | 70 | 33.9 | | | | 19 13:44 | mcg/kg/m | mL/hr | | | | PDT | in | | | + + + +-------+---+ +---+---+ | | | +---+---+ + + + +---+---+---+ | sodium chloride 0.9% (NS) | Continue | 09/10/20 | | | | | infusion at 30 mL/hr, | d by | 19 12:57 | | | | | Intravenous, CONTINUOUS, Starting | Anesthes | PDT | | | | | 09/10/19 at 1245, Pre-op | ia | | | | | + + + +---+---+---+ +---------+ +---+ +---+ | New Bag | 09/10/20 | | 30 mL/hr | | | | 19 12:28 | | | | | | PDT | | | | +---------+ +---+ +---+ +---+---+ | | | +---+---+ documented in this encounter"
--- OUTSIDE RECORDS SUMMARY | ~2019-09-27 | XMS | Encounter Summary ---
Demographics + + + | Address | [address] | | | [place] [address] | + + + | Home Phone | | + + + | Preferred Language | Unknown | + + + | Marital Status | Single | + + + | Voodoo Affiliation | PRO | + + + | Race | White | + + + | Ethnic Group | Not or | + + + Author + + + | Author | [facility] | + + + | Organization | [facility] | + + + | Address | Unknown | + + + | Phone | Unavailable | + + + Support + + + + + | Name | Relationship | Address | Phone | + + + + + | Darci Andujar | VALERIE | [place] | | | | | [address] | | + + + + + Care Team Providers + +------+ + | Care Black Top Paver Operator Name | Role | Phone | + +------+ + PCP | Unavailable | + +------+ + Encounter Details +--------+ + + + + | Date | Type | Department | Care Team | Description | +--------+ + + + + | 03/31/ | Results | Pulmonary Function | Jarod Gupta MD | | | 1992 | Only | Lab at [facility] [address] | [address] | | | | | [address] | [place], | | | | | Mailcode: [id number] | [place] [address] | | | | | Emelyn [place]alvo | [phone] | | | | | [place], [place] | | | | | | [address] | | | | | | [phone] | | | +--------+ + + + [...] Not on filedocumented as of this encounter Procedures + +--------+ + + + | Procedure Name | Priori | Date/Time | Associated Diagnosis | Comments | | | ty | | | | + +--------+ + + + | X-RAY CHEST 1 VIEW | Routin | 03/31/1993 | | Results for this | | | e | 6:25 PM | | procedure are in the | | | | PDT | | results section. | + +--------+ + + + | SURGICAL PATHOLOGY | Routin | 03/31/1993 | | Results for this | | | e | | | procedure are in the | | | | | | results section. | + +--------+ + + + documented in this encounter Results CHEST 1 VIEW (03/31/1993 6:25 PM PDT) + + + + + + | Component | Value | Ref Range | Performed | Pathologist | | | | | At | Signature | + + + + + + | CHEST, 1 | Radiologist 1: [facility] | | | | | VIEW | Idris MONROY-Radiologist | | | | | | 2: PORFIRIO LAMAS | | | | | | PORFIRIO NUNES F | | | | | | | | | | | | [phone] | | | | | | 76 CHEST, SINGLE AP | | | | | | PORTABLE: 03-30-93 AT | | | | | | 2200 HOURS | | | | | | | | | | | | Dictated: | | | | | | 04-01-93 There are no | | | | | | prior films available | | | | | | for comparison. | | | | | | FINDINGS: There is an | | | | | | endotracheal tube with | | | | | | the distal tip at | | | | | | thelevel of the T3-4 | | | | | | interspace. The | | | | | | enteric tube is coiled | | | | | | in thestomach. | | | | | | Bilateral patchy | | | | | | infiltrates are seen, | | | | | | right greater thanleft. | | | | | | There are low lung | | | | | | volumes. No pleural | | | | | | effusions | | | | | | orpneumothoraces are | | | | | | seen. IMPRESSION: 1. | | | | | | Bilateral infiltrates. | | | | | | 2. Endotracheal tube | | | | | | and nasogastric tube. | | | | | | CHEST, SINGLE AP | | | | | | PORTABLE: 03-31-93 AT | | | | | | 0400 HOURS FINDINGS: | | | | | | Since the prior study, | | | | | | a [place] catheter | | | | | | has been placedwith the | | | | | | distal tip in the main | | | | | | pulmonary artery. The | | | | | | endotrachealtube and the | | | | | | enteric tube appear | | | | | | similar. Bilateral | | | | | | patchyinfiltrates | | | | | | persist. No | | | | | | pneumothorax or pleural | | | | | | effusions are seen. | | | | | | IMPRESSION: Interval | | | | | | placement of a [place]-Lupe | | | | | | catheter. CHEST, | | | | | | SINGLE AP PORTABLE: | | | | | | 03-31-93 AT 1000 HOURS | | | | | | FINDINGS: Since the | | | | | | prior study, the | | | | | | [place] catheter has | | | | | | beenadvanced with the | | | | | | distal tip now in the | | | | | | right main pulmonary | | | | | | artery.The endotracheal | | | | | | tube and enteric tube | | | | | | appear similar. There | | | | | | has beenfurther | | | | | | opacification of the | | | | | | right lung with | | | | | | persistent infiltrate | | | | | | onthe left as well. No | | | | | | pleural effusions are | | | | | | seen. IMPRESSION: | | | | | | Pal[place]-Lupe catheter | | | | | | advanced. Bilateral | | | | | | infiltrates appear | | | | | | worse. CHEST, SINGLE | | | | | | AP PORTABLE: 03-31-93 AT | | | | | | 1830 HOURS FINDINGS: | | | | | | The endotracheal tube | | | | | | has been advanced with | | | | | | the distal tipnow | | | | | | approximately 3 cm from | | | | | | the paula. The | | | | | | [place]-Lupe catheter | | | | | | hasalso been removed | | | | | | with the distal tip now | | | | | | in the descending | | | | | | portion ofthe right main | | | | | | pulmonary artery. | | | | | | Bilateral patchy | | | | | | infiltratescontinue to | | | | | | worsen. No pleural | | | | | | effusions are seen. | | | | | | IMPRESSION: 1. | | | | | | Endotracheal tube and | | | | | | [place]-Lupe catheter | | | | | | advanced. 2. Worsening | | | | | | of the bilateral | | | | | | infiltrates. CHEST, | | | | | | AP PORTABLE VIEW: | | | | | | 04-01-93 AT 0845 HOURS | | | | | | FINDINGS: There is a | | | | | | similar appearance of | | | | | | the endotracheal | | | | | | tube,[place]-Lupe catheter | | | | | | and enteric tube. | | | | | | Bilateral patchy | | | | | | opacificationspersist. | | | | | | The remainder of the | | | | | | study is unremarkable. | | | | | | IMPRESSION: Persistent | | | | | | bilateral infiltrates. | | | | | | ABDOMEN FILM, SINGLE AP | | | | | | PORTABLE: 03-30-93 AT | | | | | | 2350 HOURS FINDINGS: | | | | | | There is an | | | | | | unremarkable bowel gas | | | | | | pattern with gas in | | | | | | bothlarge and small | | | | | | bowel. There is no | | | | | | evidence of abnormally | | | | | | dilatedloops of large or | | | | | | small intestine. No | | | | | | organomegaly, | | | | | | pathologicalcalcificatio | | | | | | ns, or free | | | | | | intraperitoneal air is | | | | | | seen. | | | | | | Vascularphleboliths | | | | | | are present in the | | | | | | pelvis. The visualized | | | | | | osseousstructures are | | | | | | unremarkable. | | | | | | IMPRESSION: Small bowel | | | | | | gas, yet no evidence of | | | | | | obstruction. ABDOMEN | | | | | | FILM, AP PORTABLE VIEW: | | | | | | 04-01-93 FINDINGS: | | | | | | There has been | | | | | | interval decrease in the | | | | | | amount of smallbowel | | | | | | gas. Colonic gas is | | | | | | noted which appears | | | | | | within normal limits.Two | | | | | | surgical clips are | | | | | | present in the right | | | | | | upper quadrant. | | | | | | Noorganomegaly, | | | | | | pathologic | | | | | | calcifications nor free | | | | | | intraperitoneal airis | | | | | | seen. IMPRESSION: No | | | | | | evidence of obstruction. | | | | | | TWO VIEWS OF FOOT: | | | | | | 03-30-93 FINDINGS: | | | | | | There is normal | | | | | | alignment of the | | | | | | visualized | | | | | | osseousstructures. | | | | | | Bony architecture | | | | | | appears within normal | | | | | | limits withoutfracture | | | | | | or destructive lesions. | | | | | | There is a bony spur | | | | | | on the plantaraspect of | | | | | | the calcaneus. The | | | | | | joint spaces are within | | | | | | normal limits.No soft | | | | | | tissue swelling is seen. | | | | | | IMPRESSION: 1. | | | | | | Calcaneal spur. 2. | | | | | | No evidence of soft | | | | | | tissue swelling. END OF | | | | | | IMPRESSION: | | | | + + + + + + + + | Specimen | + + | | + + + +---------+ + + | Performing | Address | City/State/Zipcode | Phone Number | | Organization | | | | + +---------+ + + | [facility] DEPARTMENT OF | | | | | RADIOLOGY | | | | + +---------+ + + SURGICAL PATHOLOGY (03/31/1993) + + + + + + | Component | Value | Ref Range | Performed | Pathologist | | | | | At | Signature | + + + + + + | SURGICAL | SOURCE OF SPECIMEN: SEE | | [facility] | | | PATHOLOGY | RESULTS | | DEPARTMENT | | | | Preliminary | | OF | | | | History:CLINICAL | | PATHOLOGY | | | | HISTORYThe patient is a | | | | | | 52 year old man with | | | | | | preoperative diagnosis | | | | | | of leftlower extremity | | | | | | claudication. | | | | | | GROSS DESCRIPTIONA | | | | | | single specimen is | | | | | | received fresh labeled | | | | | | left lower | | | | | | extremityamputation. It | | | | | | consists of an above the | | | | | | knee amputation. The | | | | | | specimen isred-bynum and | | | | | | yellow and measures 68 x | | | | | | 24 x 12.5 cm. The | | | | | | proximal softtissue | | | | | | surgical margin is above | | | | | | the knee and has | | | | | | approximately 6 cm. | | | | | | ofdistal femur extending | | | | | | beyond it. The lower | | | | | | leg has been | | | | | | previouslyincised on the | | | | | | medial and lateral | | | | | | aspects. Each incision | | | | | | measuresapproximately 29 | | | | | | cm. in length. There is | | | | | | one incision on the | | | | | | dorsum ofthe foot | | | | | | measuring 9.5 cm. in | | | | | | length. All incisions | | | | | | are exposing muscleand | | | | | | tendon and have not been | | | | | | closed. The skin over | | | | | | the legs have noapparent | | | | | | lesion. There is one | | | | | | small collection of | | | | | | blood in theperionychium | | | | | | of the second toe | | | | | | measuring approximately | | | | | | 0.6 x 0.3 cm. | | | | | | indiameter. There are | | | | | | also two warty lesions | | | | | | on the dorsum of the | | | | | | greattoe, which appear | | | | | | to be confluent and | | | | | | measure approximately | | | | | | 1.5 x 0.3 x0.2 cm. in | | | | | | diameter. The surgical | | | | | | margin of the femur bone | | | | | | appearsviable. The | | | | | | proximal muscle and skin | | | | | | margin are inked black | | | | | | and sectionsare | | | | | | submitted in cassette 1. | | | | | | Sections of the | | | | | | posterior tibial artery | | | | | | aretaken as they round | | | | | | the medial malleolus and | | | | | | submitted in cassette | | | | | | 2.The posterior tibial | | | | | | artery grossly does not | | | | | | appear to have the | | | | | | lumencompromised by | | | | | | atherosclerosis. The | | | | | | sections of the | | | | | | posterior tibialartery | | | | | | as it passes through the | | | | | | mid lower leg between | | | | | | the tibia andfibula are | | | | | | inked black and also | | | | | | submitted in cassette 2. | | | | | | The sections ofthis | | | | | | artery, however, | | | | | | demonstrate a marked | | | | | | amount of | | | | | | calcifiedatherosclerosis | | | | | | . Several sections of | | | | | | the lesion on the back | | | | | | of the toeare submitted | | | | | | in cassette 3. Sections | | | | | | of proximal posterior | | | | | | tibialartery which has a | | | | | | soft, brown material in | | | | | | the lumen are submitted | | | | | | incassette 4. A section | | | | | | of the distal popliteal | | | | | | artery, which has | | | | | | severeatherosclerosis, | | | | | | is submitted in cassette | | | | | | 5.Case dictated by: | | | | | | Venkatesh Mena MS | | | | | | III/es | | | | | | FINAL DIAGNOSISSPECIMEN | | | | | | LABELED LEFT LOWER | | | | | | EXTREMITY AMPUTATION: | | | | | | LOWER EXTREMITY WITH | | | | | | SEVERE ATHEROSCLEROSIS | | | | | | AND FRAGMENTS OF | | | | | | THROMBUS IN | | | | | | POPLITEAL AND POSTERIOR | | | | | | TIBIAL ARTERIES. SEE | | | | | | NOTE Note: It is | | | | | | not possible to | | | | | | determine if the | | | | | | thrombus | | | | | | presentrepresents | | | | | | primary thrombosis or a | | | | | | thromboembolus. | | | | | | Case reviewed by: | | | | | | Patrick Eid M.D.t: | | | | | | 04/03/93/fahad My | | | | | | electronic signature | | | | | | indicates that I have | | | | | | personally reviewed | | | | | | alldiagnostic slides, | | | | | | the gross and/or | | | | | | microscopic portion of | | | | | | thisreport and | | | | | | formulated the final | | | | | | diagnosis. | | | | + + + + + + + + | Specimen | + + | Other | + + + + + + + | Performing | Address | City/State/Zipcode | Phone Number | | Organization | | | | + + + + + | [facility] | [address] | [place] [address] | | | PATHOLOGY | [address] | | | + + + + + documented in this encounter Visit Diagnoses Not on filedocumented in this encounter"
--- OUTSIDE RECORDS SUMMARY | ~2019-09-27 | XMS | Encounter Summary ---
Demographics + + + | Address | [address] | | | [place] [address] | + + + | Home Phone [...] Team Providers + +------+ + | Care Purchase Price Analyst Name | Role | Phone | [...] + + | 07/21/ | Documentati | [facility] | Simon, | Results (07/19/19) | | 2019 | on | NEPHROLOGY [place] | [facility] | | | | | [address] | Windows Administrator | | | | | [address] [facility] [place] | | | | | | [address] | | | | | | [phone] | | | +--------+ + + + [...] [place] | | | | | | [id number] | | | | | | | | +--------+---------+ + + + | 10/04/ | Office | Nephrology | Farrukh Acuna MD | | | 2019 | Visit | | [address] [facility] | | | | | | [address] [place] [address] | | | | | | [address] | | | | | | | [...] this | | INTACT | e | 15:30 PDT | | procedure are in the | | | | | | results section. | + +--------+ + + + | IRON AND IRON | Routin | 07/19/2019 | | Results for this | | BINDING CAPACITY | e | 15:30 PDT | | procedure are in the | | | | | | results section. | + +--------+ + + + | CBC W/AUTO | Routin | 07/19/2019 | | Results for this | | DIFFERENTIAL | e | 15:30 PDT | | procedure are in the | | | | | | results section. | + +--------+ + + + | RENAL FUNCTION PANEL | Routin | 07/19/2019 | | Results for this | | | e | 15:30 PDT | | procedure are in the | | | | | | results section. | + +--------+ + + + documented in this encounter Results Iron and Iron Binding Capacity (07/19/2019 15:30 PDT) + +-------+ + + + | [...] | + + Renal Function Panel (07/19/2019 15:30 PDT) + + + + + + [...] + + CBC w/ Auto Differential (07/19/2019 15:30 PDT) + + + + + + [...] + + External Lab: PTH, Intact (07/19/2019 15:30 PDT) + + + + + + [...]
--- OUTSIDE RECORDS SUMMARY | ~2019-09-27 | XMS | Encounter Summary ---
Demographics + + + | Address | [address] | | | [place] [address] | + + + | Home Phone | | + + + | Preferred Language | Unknown | + + + | Marital Status | | + + + | Druze Affiliation | 1077 | + + + [...] Team Providers + +------+ + | Care Returned Telephone Equipment Appraiser Name | Role | Phone | + [...] | | | | | | | ([facility]) | | | | | | [...] + + | 09/10/ | Hospital | [facility] | Brian Orosco MD | CKD (chronic kidney | | 2019 | Encounter | [facility] | [address] | disease) stage 5, | | | | OPERATING [address] | [place], [place] | GFR less than 15 | | | | [address] | [address] | ml/min ([facility]) | | | | [place], [place] | [phone] | | | | | [address] | | | | | | [phone] | | | +--------+ + + + [...] | Blood Pressure | 132/59 | 09/10/2019 1600 PDT | + + + + | Pulse | 61 | 09/10/2019 1600 PDT | + + + + | Temperature | 36.3 C (97.4 F) | 09/10/2019 1407 PDT | + + + + | Respiratory Rate | 14 | 09/10/2019 1430 PDT | + + + + | Oxygen Saturation | 93% | 09/10/2019 1600 PDT | + + + + | Inhaled Oxygen | - | - | | Concentration | | | + + + + | Weight | 80.7 kg (178 lb) | 09/10/2019 1215 PDT | + + + + | Height | 172.7 cm (5' 8") | 09/10/2019 1215 PDT | + + + + | Body Mass Index | 27.06 | 09/10/2019 1215 PDT | + + + + documented [...] shunt, please contact your ph ysician at [phone]. Discharge instructions for Diagnostic Imaging sedation patients [...] . For any severe symptoms, please call [phone] or report to your nearest Emergency Department. Acetaminophen; Hydrocodone tablets or capsules Brand Names: Anexsia, Lorcet, Lorcet HD, Lorcet Plus, Lortab, [place]asota, Verdrocet, Vicodin, Vi codin ES, Vicodin HP, [...] information carefully each time. Talk to your commercial litigation attorney regarding the use of this medicine in children. Special care may be needed. What side effects may I notice from receiving this medicine? Side effects that you should report to your doctor or health companion caregiver as soon as p ossible: allergic reactions [...] attention (report to your doctor or health companion caregiver if they continue or are bothersome): constipation [...] to an official disposal site. Contact the [facility] at [phone] or your [facility] government to find a site. If you [...] this medicine? Tell your doctor or health companion caregiver if your pain does not go away, [...] not stand or sit up quickly, tisha sharonday if you are an older patient. This [...] call your doctor or health care professi onirving. Your mouth may get dry. Chewing sugarless gum or sucking hard candy, and drinking plenty of water may help. Contact your doctor if the problem does not go away or is severe. NOTE:This sheet is a summary. It may not cover all possible information. If you have questi ons about this medicine, talk to your doctor, pharmacist, or health care provider. Copyright 2019 [employer] Arteriovenous (AV) Fistula for Dialysis An AV [...] cuts, scrapes, or blows. Date Last Reviewed: 12/01/201619990601-0221 [employer]. [address] [place] [address], [place] [address]. All righ ts reserved. This information is [...] | | | | | | | ([facility]), Secondary | | | | | | | hyperparathyroidism | | | | | | | ([facility]) | | | | | | + [...] | as needed. | | | | | | capsule | | | | | | + + + +---------+ + + | | Take 1 tablet by | 30 | 0 | 09/10/20 | | | HYDROcodone-acetamin | mouth every 4 hours | tablet | | 19 | | | ophen (NORCO) 5-325 | as [...] + + +---------+ + + | LANTUS IGOROSTAR | Inject 25 Units | | 0 | //20 | | | 100 UNIT/ML | under [...] Progress Notes Leana Pimentel RN - 09/10/2019 9625 PDTDischarge instructions (per AVS) explained and discussed with patient and family (patient's daughter-sona). Discussed precautions post-fis vitaly creation, precautions post-anesthesia, signs and symptoms of surgical site incision, he samuel bleeding, incision care, dressing care, and signs and symptoms of blood clots and blood clots prevention. Prescription for Saras[place] given and side effects were explained. Patient stat es that he also takes oxycodone at home; patient and his family were educated about taking o xycodone or Sarasota only and not both. OTC Tylenol intake precautions also discussed. Patient and his family verbalized understanding and agreeable. Opportunity to ask questions given, a ll questions were answered. Leana Pimentel RN documented in this en counter Plan of Treatment +--------+---------+ + + + | Date | Type | Specialty | Care Team | Description | +--------+---------+ + + + | 09/30/ | Office | Vascular Surgery | Trisha Conner DNP | | | 2018 | Visit | | [address] | | | | | | [place] | | | | | | [id number] | | | | | | | | +--------+---------+ + + + | 10/04/ | Office | Nephrology | Farrukh Acuna MD | | | 2018 | Visit | | [address] [facility] [address] | | | | | | [address] [place] | | | | | | [address] | | | | | | | [...] this | | ORD) | e | 14:12 PDT | | procedure are in the | | | | | | results section. | + +--------+ + + + | POC GLUCOSE (NON | Routin | 09/10/2019 | | Results for this | | ORD) | e | 12:13 PDT | | procedure are in the | | | | | | results section. | + +--------+ + + + | INSERTION AV FISTULA | | 09/10/2019 | CKD (chronic | | | | | 11:25 PDT | kidney disease) | | | | | | stage 5, GFR less | | | | | | than 15 ml/min (HCC) | | + +--------+ + + + documented in this encounter Results POC Glucose (09/10/2019 14:12 PDT) + + + + + + | Component | Value | Ref Range | Performed | Pathologist | | | | | At | Signature | + + + + + + | Glucose, | 161 (H)Comment: Testing | 65 - 99 mg/dL | [facility] | | | POC | performed at [facility];[address] | | LABORATORY | | | | [address];[place], [place] | | | | | | [address] | | | | + + + + + + + + | Specimen | + + | | + + + + + + + | Performing | Address | City/State/Zipcode | Phone Number | | Organization | | | | + + + + + | [facility] | [address] | [place] [address] | [phone] | + + + + + POC Glucose (09/10/2019 12:13 PDT) + + + + + + | Component | Value | Ref Range | Performed | Pathologist | | | | | At | Signature | + + + + + + | Glucose, | 150 (H)Comment: Testing | 65 - 99 mg/dL | [facility] | | | POC | performed at [facility];[address] | | LABORATORY | | | | [address];[place] | | | | | | [address] | | | | + + + + + + + + | Specimen | + + | | + + + + + + + | Performing | Address | City/State/Zipcode | Phone Number | | Organization | | | | + + + + + | [facility] | [address] | [place] [address] | [phone] | + + + + + documented [...] stage 5, GFR less than 15 ml/min ([facility]) Chronic kidney | | disease, Stage [...] mg, Nebulization, RT Once, Fri | | PDT | | | | [...] One week or | | | longer, culxpw-dis-ungwp use of | | | at least [...]
--- OUTSIDE RECORDS SUMMARY | ~2019-09-27 | XMS | Encounter Summary ---
Demographics + + + | Address | [address] | | | [place] [address] | + + + | Home Phone | | + + + | Preferred Language | Unknown | + + + | Marital Status | | + + + | Hinduism Affiliation | 1077 | + + + | Race | Unknown | + + + | Ethnic Group | Unknown | + + + Author + + + | Author | [facility] | | | and [place] | + + + | Organization | [facility] | [...] Team Providers + +------+ + | Care Shift Commander Name | Role | Phone | + +------+ + | Rahul Silva MD | PCP | Unavailable | + +------+ + Reason for Visit + + + | Reason | Comments | + + + | Advice Only | surgery | + + + Encounter Details +--------+ + + + + | Date | Type | Department | Care Team | Description | +--------+ + + + + | 09/01/ | Telephone | [facility] | Brian Orosco MD | Advice Only | | 2019 | | VASCULAR SURGERY | [address] | (surgery) | | | | [address] | [place], [place] | | | | | [place], [place] | [address] | | | | | [address] | [phone] | | | | | [phone] | | | +--------+ + + + [...] [place] | | | | | | [address] | | | | | | | | +--------+---------+ + + + | 10/04/ | Office | Nephrology | Farrukh Acuna MD | | | 2019 | Visit | | [address] [facility] | | | | | | [address] [place], [place] | | | | | | [address] | | | | | | | | +--------+---------+ + + + documented as of this encounter Visit Diagnoses Not on filedocumented in this encounter"
--- OUTSIDE RECORDS SUMMARY | ~2019-09-27 | XMS | Encounter Summary ---
Demographics + + + | Address | [address] | | | [place] [address] | + + + | Home Phone [...] Team Providers + +------+ + | Care Bedspread Seamer Name | Role | Phone | + [...] + + | 08/13/ | Telephone | [facility] | Farrukh Acuna MD | Other (lab result) | | 2019 | | NEPRHOLOGY [place] | [address] | | | | | [address] | [address] [place], [place] | | | | | [address] [place], [place] | [address] | | | | | [address] | | | | | | [phone] | | | +--------+ + + + [...] [place] | | | | | | [address] | | | | | | | | +--------+---------+ + + + | 10/04/ | Office | Nephrology | Farrukh Acuna MD | | | 2019 | Visit | | [address] [facility] | | | | | | [address] [place], [place] | | | | | | [address] | | | | | | | | +--------+---------+ + + + documented as of this encounter Visit Diagnoses Not on filedocumented in this encounter"
--- OUTSIDE RECORDS SUMMARY | ~2019-09-27 | XMS | Encounter Summary ---
Demographics + + + | Address | [address] | | | [place] [address] | + + + | Home Phone [...] Team Providers + +------+ + | Care Beauty Shop Manager Name | Role | Phone | + +------+ + | Rahul Silva MD | PCP | Unavailable | + +------+ + Encounter Details +--------+ + + + + | Date | Type | Department | Care Team | Description | +--------+ + + + + | 07/20/ | Orders Only | [facility] | Farrukh Acuna MD | Stage 4 chronic | | 2019 | | NEPHROLOGY [place] | [address] [place] | kidney disease (HCC) | | | | [address] | [address] [place], [place] | (Primary Dx); | | | | [address] | [address] | Persistent | | | | [place], [place] | | proteinuria; | | | | [address] | | Secondary | | | | [phone] | | hyperparathyroidism | | | | [...] [place] | | | | | | [address] | | | | | | | | +--------+---------+ + + + | 10/04/ | Office | Nephrology | Farrukh Acuna MD | | | 2018 | Visit | | [address] [facility] [place] | | | | | | [address] [place] | | | | | | [address] | | | | | | | | +--------+---------+ + + + + +--------+ + + | Name | Priori | Associated Diagnoses | Order Schedule | | | ty | | | + +--------+ + + | Misc Lab Referral | Routin | Stage 4 chronic | 1 Occurrences | | | e | kidney disease (HCC) | starting 07/20/2019 | | | | Persistent | until 03/08/2020 | | | | proteinuria | | | | | Secondary | | | | | hyperparathyroidism | | | | | (HCC) | | + +--------+ + + documented as of this encounter Visit Diagnoses + + | Diagnosis | + + | Stage 4 chronic kidney disease (HCC) - Primary | + + | Persistent proteinuria Proteinuria | + + | Secondary hyperparathyroidism (HCC) Secondary hyperparathyroidism (of renal origin) | + + documented in this encounter"
--- OUTSIDE RECORDS SUMMARY | ~2019-09-27 | XMS | Encounter Summary ---
Demographics + + + | Address | [address] | | | [place] [address] | + + + | Home Phone [...] Providers + +------+ + | Care Information Systems Audit Manager Name | Role | Phone | + +------+ + | Rahul Silva MD | PCP | Unavailable | + +------+ + Encounter Details +--------+ + + + + | Date | Type | Department | Care Team | Description | +--------+ + + + + | 07/20/ | Orders Only | [facility] | Farrukh Acuna MD | Stage 4 chronic | | 2019 | | NEPHROLOGY [place] | [address] [place] | kidney disease (HCC) | | | | [address] | [address] [place], [place] | (Primary Dx); | | | | [address] | [address] | Persistent | | | | [place], [place] | | proteinuria; | | | | [address] | | Secondary | | | | [phone] | | hyperparathyroidism | | | | [...] [place] | | | | | | [address] | | | | | | | | +--------+---------+ + + + | 10/04/ | Office | Nephrology | Farrukh Acuna MD | | | 2018 | Visit | | [facility] [facility] [place] | | | | | | [address] [place] | | | | | | [address] | | | | | | | [...]
--- OUTSIDE RECORDS SUMMARY | ~2019-09-27 | XMS | Encounter Summary ---
Demographics + + + | Address | [address] | | | [place] [address] | + + + | Home Phone [...] Team Providers + +------+ + | Care Center Mgr Name | Role | Phone | + +------+ + | Rahul Silva MD | PCP | Unavailable | + +------+ + Encounter Details +--------+---------+ + + + | Date | Type | Department | Care Team | Description | +--------+---------+ + + + | 07/26/ | Office | [facility] | Farrukh Acuna MD | Stage 5 chronic | | 2019 | Visit | NEPHROLOGY [place] | [address] [place] | kidney disease not | | | | [address] | [address] [place], [place] | on chronic dialysis | | | | [address] | [address] | (HCC) (Primary Dx); | | | | [place], [place] | | Edema of lower | | | | [address] | | extremity; Tobacco | | | | [phone] | | dependence syndrome; | | | | | | Vitamin D | | | | | | deficiency; | | | | | | Hypomagnesemia; | | | | | | Anemia of chronic | | | | | | kidney failure, | | | | | | stage 5 (HCC); Iron | | | | | | [...] + + + | Blood Pressure | 122/40 | 07/26/2019 1343 PDT | + + + + | Pulse | 68 | 07/26/2019 1343 PDT | + + + + | Temperature | - | - | + + + + | Respiratory Rate | - | - | + + + + | Oxygen Saturation | - | - | + + + + | Inhaled Oxygen | - | - | | Concentration | | | + + + + | Weight | 85 kg (187 lb 8 oz) | 07/26/20191342 PDT | + + + + | Height | 172.7 cm (5' 8") | 07/26/20191342 PDT | + + + + | Body Mass Index | 28.51 | 07/26/2019 1343 PDT | + + + + documented in this encounter Patient Instructions Patient Instructions Farrukh Acuna MD - 07/26/2019 13:10 PDTiscussions/Recommendations: I discussed today with Mr. Andujar the [...] Also: I see no need for acute EYE DROPPER ASSEMBLER. I see no need to send him to the ED. I again sent him for a pre-dialysis Options class ALEXI. I sent him for evaluation by the Vascular Surgery team for an AV fistula construction. I will not change any of his vasoactive meds today. I sent him for a repeat BMP every 2 weeks. he will bring me back his [...] I kept his Cholecalciferol (Vitamin D3) to 2,000 units daily. I kept him on Ferrous Sulfate 325 mg daily. I warned him about its possible side effects including constipation. he voiced good understanding. I kept him on Aranesp 60 mcg monthly. I strongly advised him to stop smoking ALEXI; I explained the benefits of doing that. He voi rubin good understanding. I asked him to F/U with the Sleep Medicine team. He will F/U with your office regularly. He will have RFP, CBC, Mag, Fe studies, Ferritin, intact PTH done before he comes back i n 2 months. 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 On 05/27/19, his sCr & eGFR were 4.44 & 13 vs 3.03 & 20 on 03/01/19. He was in the ED in early 03/2019 with dyspnea; given bronchodilators, diuresed & felt bett er. He was hospitalized in late 01/2019 with "perforated bowel". He was hospitalized in 10/2016 with severe pneumonia, severe ZEKE; needed EYE DROPPER ASSEMBLER for ~5 weeks b efore renal function recovery mid 12/2016. He was admitted to [facility] for 3 nights in July 2016 for [...] of renal genetic diseases such as PKD. he says that he [...] mg by mouth 2 (two) times daily. albuterol (PROVENTIL HFA;VENTOLIN HFA) 108 (90 Base) MCG/ACT inhaler Inhale 2 puffs int o the lungs every 4 (four) hours as needed for Wheezing. amLODIPine (NORVASC) 10 MG tablet Take 10 [...] tablet Take 75 mg by mouth daily. darbepoetin amarjit (ARANESP) 60 MCG/ML injection Inject 1 mL into the skin every 30 (thir ty) days. 1 mL 5 doxepin (SINEQUAN) 50 MG capsule gabapentin (NEURONTIN) [...] mg by mouth 6 (six) times daily. predniSONE (DELTASONE) 20 MG tablet Take 20 mg by mouth daily with breakfast. sodium bicarbonate 650 MG tablet Take 1 tablet by mouth 4 (four) times daily. 1080 tabl et 3 torsemide (DEMADEX) 20 MG tablet Take 2 tablets by mouth daily. 180 tablet 3 Blood Pressure KIT Use as directed for BP measurements twice a day. 1 each 0 No current facility-administered medications for this visit. Physical Exam: BP 120/42 (BP Location: Left upper arm, Patient Position: Sitting) | Pulse 66 | Ht 1.727 m (5' 8") | Wt 84.8 kg (187 lb) | SpO2 93% | BMI 28.43 kg/m General appearance: Pleasant, not in acute [...] tenderness bilaterally. Extremities: Warm to touch with 1+ right leg edema. +right thigh edema. Left AKA. There i s no cyanosis. Skin: There are no rashes, petechiae; ecchymosis on arms. Neurological: Awake, alert, and oriented to time, place, and person. Normal gross motor po wer. There is no asterixis. Psychiatric: The patient s behavior is normal. Judgment and thought content are normal. Lab Results Component Value Date BUN 49 (A) 05/27/2019 CREATININE 4.44 (A) 05/27/2019 EGFR 13 (A) 05/27/2019 NA 138 05/27/2019 K 4.6 05/27/2019 CL 98 05/27/2019 CO2 28 05/27/2019 CA 8.3 (A) 05/27/2019 PHOS 6.2 (A) 05/27/2019 MG 1.6 (A) 10/08/2018 ALB 3.3 (A) 05/27/2019 HGB 10.1 (A) 05/27/2019 URICACID 6.6 05/22/2018 WBC 8.0 05/27/2019 HCT 30.2 (A) 05/27/2019 FERRITIN 162.3 05/27/2019 LABIRON 19.5 (A) 05/27/2019 LABPROT 2,445.6 (A) 03/01/2019 [id number] 30 10/08/2018 Assessment: Mr. Andujar is a 78 y.o. male patient with stage IV CKD on a background of diabetes & hypert ension and recent hospitalization for C-diff and hehydration. The most likely pathology here is that of diabetic nephropathy +/- hypertensive nephrosclerosis/arteriolosclerosis. He was hospitalized in 10/2016 with severe pneumonia, severe ZEKE; needed EYE DROPPER ASSEMBLER for ~5 weeks b efore renal function recovery mid 12/2016. RENAL FUNCTION: Below baseline vs 2014. He had a stage 1 ZEKE (acute kidney injury) in ear ly 07/2017 BLOOD PRESSURE: Reportedly better control, 130's - 150's / 40's - 60's BLOOD SUGAR: Reports it better controlled ELECTROLYTES: Acceptable; mild hypocalcemia ANEMIA: Moderate; Fe deficiency is still moderate [...] Also: I see no need for acute EYE DROPPER ASSEMBLER. I see no need to send him to the ED. I again sent him for a pre-dialysis Options class ALEXI. I sent him for evaluation by the Vascular Surgery team for an AV fistula construction. I will not change any of his vasoactive meds today. I sent him for a repeat BMP every 2 weeks. he will bring me back his [...] I kept his Cholecalciferol (Vitamin D3) to 2,000 units daily. I kept him on Ferrous Sulfate 325 mg daily. I warned him about its possible side effects including constipation. he voiced good understanding. I kept him on Aranesp 60 mcg monthly. I strongly advised him to stop smoking ALEXI; I explained the benefits of doing that. He voi rubin good understanding. I asked him to F/U with the Sleep Medicine team. He will F/U with your office regularly. He will have RFP, CBC, Mag, Fe studies, Ferritin, intact PTH done before he comes back i n [address] Silva for the opportunity to see this high-complexity patient in F/U on a n urgent basis today, as we are trying to prevent a hospitalization for severe/worsening nusrat al failure and/or life-threatening electrolytes or volume imbalance. Please do not hesitate to call me at any time with questions or concerns. Truly yours, Farrukh Acuna MD FACP, FASH, FAHA documented in this encount er Plan of Treatment +--------+---------+ + + + | Date | Type | Specialty | Care Team | Description | +--------+---------+ + + + | 09/30/ | Office | Vascular Surgery | Trisha Conner DNP | | | 2018 | Visit | | [address] | | | | | | [place] | | | | | | [id number] | | | | | | | | +--------+---------+ + + + | 10/04/ | Office | Nephrology | Farrukh Acuna MD | | | 2018 | Visit | | [address] | | | | | | [address] [place] | | | | | | [address] | | | | | | | | +--------+---------+ + + + documented as of this encounter Visit Diagnoses + + | Diagnosis | + + | Stage 5 chronic kidney disease not on chronic dialysis (HCC) - Primary | + + | Edema of lower extremity Edema | + + | Tobacco dependence syndrome Tobacco use disorder | + + | Vitamin D deficiency Unspecified vitamin D deficiency | + + | Hypomagnesemia Disorders of magnesium metabolism | + + | Anemia of chronic kidney failure, stage 5 (HCC) | + + | Iron deficiency Other disorders of iron metabolism | + + documented in this encounter
--- OUTSIDE RECORDS SUMMARY | ~2019-09-27 | XMS | Encounter Summary ---
Demographics + + + | Address | [address] | | | [place] [address] | + + + | Home Phone [...] Team Providers + +------+ + | Care Bleacher Sulfite Pulp Name | Role | Phone | + +------+ + | Rahul Silva MD | PCP | Unavailable | + +------+ + Reason for Referral [...] E | | | | | | (HCC) | [place] | | | | | | Procedures | [address] | | | | | | VAS Arm | Phone: | | | | | | Bilateral | [phone] | | | | | | Mapping For | Fax: | | | | | | Dialysis | [phone] | | +--------+--------+ + + + + Reason for Visit + + + | Reason | Comments | + + + | Referral Consult | | + + + Encounter Details +--------+ + + + + | Date | Type | Department | Care Team | Description | +--------+ + + + + | 07/30/ | Telephone | [facility] | Trisha Conner DNP | Referral Consult | | 2019 | | CARDIOTHORACIC | [address] | | | | | SURGERY [address] | [place] | | | | | [address] [place] | [address] | | | | | [place] | | | | | | [address] | | | | | | [phone] | | | +--------+ + + + [...] [place] | | | | | | [address] | | | | | | | | +--------+---------+ + + + | 10/04/ | Office | Nephrology | Farrukh Acuna MD | | | 2018 | Visit | | [address] [facility] [place] | | | | | | [address] [place] | | | | | | [address] | | | | | | | | +--------+---------+ + + + documented as of this encounter Results VAS Arm Bilateral Mapping For Dialysis (08/20/2019 13:58 PDT) + + | Specimen | + [...] + | Wiley, Rad Results In 08/20/2019 1627 PDT | | UPPER EXTREMITY VEIN MAPPING [...]
--- OUTSIDE RECORDS SUMMARY | ~2019-09-27 | XMS | Encounter Summary ---
Demographics + + + | Address | [address] | | | [place] [address] | + + + | Home Phone [...] Team Providers + +------+ + | Care Production Line Operator Name | Role | Phone | + +------+ + | Rahul Silva MD | PCP | Unavailable | + +------+ + Encounter Details +--------+ + + + + | Date | Type | Department | Care Team | Description | +--------+ + + + + | 07/20/ | Orders Only | [facility] | Farrukh Acuna MD | Stage 4 chronic | | 2019 | | NEPHROLOGY [place] | [address] [place] | kidney disease (HCC) | | | | [address] | [address] [place], [place] | (Primary Dx); | | | | [address] | [address] | Persistent | | | | [place], [place] | | proteinuria; | | | | [address] | | Secondary | | | | [phone] | | hyperparathyroidism | | | | [...] [place] | | | | | | [address] | | | | | | | | +--------+---------+ + + + | 10/04/ | Office | Nephrology | Farrukh Acuna MD | | | 2018 | Visit | | [address] [facility] [place] | | | | | | [address] [place] | | | | | | [address] | | | | | | | [...]
--- OUTSIDE RECORDS SUMMARY | ~2019-09-27 | XMS | Encounter Summary ---
Demographics + + + | Address | [address] | | | [place] [address] | + + + | Home Phone [...] + +------+ + | Care Director Of Resource Development Name | Role | Phone | [...] + + | 09/24/ | Telephone | [facility] | Farrukh Acuna MD | Lab Results | | 2019 | | NEPHROLOGY [place] | [address] [place] | | | | | [address] [place] | [address] [place], [place] | | | | | [address] [place], [place] | [address] | | | | | [address] | | | | | | [phone] | | | +--------+ + + + [...] [place] | | | | | | [address] | | | | | | | | +--------+---------+ + + + | 10/04/ | Office | Nephrology | Farrukh Acuna MD | | | 2019 | Visit | | [address] [facility] | | | | | | [address] [place], [place] | | | | | | [address] | | | | | | | | +--------+---------+ + + + documented as of this encounter Visit Diagnoses Not on filedocumented in this encounter"
--- OUTSIDE RECORDS SUMMARY | ~2019-09-27 | XMS | Encounter Summary ---
Demographics + + + | Address | [address] | | | [place] [address] | + + + | Home Phone [...] Team Providers + +------+ + | Care Odd Piece Checker Name | Role | Phone | + +------+ + | Rahul Silva MD | PCP | Unavailable | + +------+ + Reason for Visit + + + | Reason | Comments | + + + | Surgery Appointment | | + + + Encounter Details +--------+ + + + + | Date | Type | Department | Care Team | Description | +--------+ + + + + | 09/07/ | Telephone | [facility] | Sandy Gomez, | Surgery Appointment | | 2019 | | VASCULAR SURGERY | RN | | | | | [address] | | | | | | [place], [place] | | | | | | [address] | | | | | | [phone] | | | +--------+ + + + [...] [place] | | | | | | [address] | | | | | | | | +--------+---------+ + + + | 10/04/ | Office | Nephrology | Farrukh Acuna MD | | | 2019 | Visit | | [address] [facility] | | | | | | [address] [place], [place] | | | | | | [address] | | | | | | | | +--------+---------+ + + + documented as of this encounter Visit Diagnoses Not on filedocumented in this encounter"
--- OUTSIDE RECORDS SUMMARY | ~2019-09-27 | XMS | Encounter Summary ---
Demographics + + + | Address | [address] | | | [place] [address] | + + + | Home Phone | | + + + | Preferred Language | Unknown | + + + | Marital Status | Single | + + + | Pentecostalism Affiliation | PRO | + + + | Race | White | + + + | Ethnic Group | Not or | + + + Author + + + | Author | [facility] | + + + | Organization | [facility] | + + + | Address | Unknown | + + + | Phone | Unavailable | + + + Support + + + + + | Name | Relationship | Address | Phone | + + + + + | Darci Andujar | [place]ERIE | [place] | | | | | [address] | | + + + + + Care Team Providers + +------+ + | Care Environmental Compliance Inspector Name | Role | Phone | + +------+ + | Rahul Silva MD | PCP | | + +------+ + Encounter Details +--------+ + + + + | Date | Type | Department | Care Team | Description | +--------+ + + + + | 05/07/ | Documentati | AntiCoagulation at | Note, | | | 1992 | on | [facility] [address] | Anticoagulation | | | | | [address] | Clinic | | | | | [facility] | | | | | | [address] | | | | | | [facility] | | | | | | [place], [place] | | | | | | [address] | | | | | | [phone] | | | +--------+ + + + [...]
--- OUTSIDE RECORDS SUMMARY | ~2019-09-27 | XMS | Encounter Summary ---
Demographics + + + | Address | [address] | | | [place] [address] | + + + | Home Phone | | + + + | Preferred Language | Unknown | + + + | Marital Status | | + + + | Gnosticism Affiliation | 1077 | + + + | Race | Unknown | + + + | Ethnic Group | Unknown | + + + Author + + + | Author | [facility] | | | and [place] | + + + | Organization | [facility] | | [...] Team Providers + +------+ + | Care Tin Can Laborer Name | Role | Phone | [...] + + | 09/13/ | Telephone | [facility] | Terri Aguilar, | Follow-up | | 2019 | | VASCULAR SURGERY | Consulting Services Manager | | | | | [address] | | | | | | [place], [place] | | | | | | [address] | | | | | | [phone] | | | +--------+ + + + [...] | 2019 | Visit | | [address] | | | | | | [place] | | | | | | [address] | | | | | | | | +--------+---------+ + + + | 10/04/ | Office | Nephrology | Farrukh Acuna MD | | | 2019 | Visit | | [address] [place] | | | | | | [address] [place] | | | | | | [address] | | | | | | | | +--------+---------+ + + + documented as of this encounter Visit Diagnoses Not on filedocumented in this encounter"
--- OUTSIDE RECORDS SUMMARY | ~2019-09-27 | XMS | Encounter Summary ---
Demographics + + + | Address | [address] | | | [place] [address] | + + + | Home Phone [...] Team Providers + +------+ + | Care Parole Board Member Name | Role | Phone | + +------+ + | Rahul Silva MD | PCP | Unavailable | + +------+ + Encounter Details +--------+ + + + + | Date | Type | Department | Care Team | Description | +--------+ + + + + | 07/20/ | Orders Only | [facility] | Farrukh Acnua MD | Anemia of chronic | | 2019 | | NEPHROLOGY [place] | [address] [place] | renal failure, stage | | | | [address] [place] | [address] [place], [place] | 4 (severe) (HCC) | | | | [address] [place], [place] | [address] | (Primary Dx); Stage | | | | [address] | | 4 chronic kidney | | | | [phone] | | disease (HCC); | | | | | | Family history of | | | | | | hypertension; | | | | | | Secondary [...] | | | | | [place] | | | | | | [id number] | | | | | | | | +--------+---------+ + + + | 10/04/ | Office | Nephrology | Farrukh Acuna MD | | | 2018 | Visit | | [address] [facility] [place] | | | | | | [address] [facility] [place] | | | | | | [address] | | | | | | | | +--------+---------+ + + + documented as of this encounter Visit Diagnoses + + | Diagnosis | + + | Anemia of chronic renal failure, stage 4 (severe) (HCC) - Primary | + + | Stage 4 chronic kidney disease (HCC) | + + | Family history of hypertension Family history of other cardiovascular diseases | + + | Secondary hyperparathyroidism (HCC) Secondary hyperparathyroidism (of renal origin) | + + | Persistent proteinuria Proteinuria | + + documented in this encounter"
--- OUTSIDE RECORDS SUMMARY | ~2019-09-27 | XMS | Encounter Summary ---
Demographics + + + | Address | [address] | | | [place] [address] | + + + | Home Phone [...] Team Providers + +------+ + | Care Certified Anesthesiologist Assistant Name | Role | Phone | + +------+ + | Rahul Silva MD | PCP | Unavailable | + +------+ + Reason for Visit + + + | Reason | Comments | + + + | Establish Care | Referral | + + + Encounter Details +--------+ + + + + | Date | Type | Department | Care Team | Description | +--------+ + + + + | 07/30/ | Telephone | [facility] | Brian Orosco MD | Establish Care | | 2019 | | VASCULAR SURGERY | [address] | (Referral) | | | | [address] [place] | [place], [place] | | | | | [place], [place] | [address] | | | | | [address] | [phone] | | | | | [phone] | | | +--------+ + + + [...] [place] | | | | | | [address] | | | | | | | | +--------+---------+ + + + | 10/04/ | Office | Nephrology | Farrukh Acuna MD | | | 2019 | Visit | | [address] [facility] | | | | | | [facility] | | | | | | [address] | | | | | | | | +--------+---------+ + + + documented as of this encounter Visit Diagnoses Not on filedocumented in this encounter"
--- OUTSIDE RECORDS SUMMARY | ~2019-09-27 | XMS | Encounter Summary ---
Demographics + + + | Address | [address] | | | [place] [address] | + + + | Home Phone [...] Author + + + | Author | [facility] | + + + | Organization | [facility] | + + + | Address | Unknown | + + + | Phone | Unavailable | + + + Support + + + + + | Name | Relationship | Address | Phone | + + + + + | Darci Andujar | [place]ERIE | [place] | | | | | [address] | | + + + + + Care Team Providers + +------+ + | Care School Guard Name | Role | Phone | + +------+ + PCP | Unavailable | + +------+ + Encounter Details +--------+ + + + + | Date | Type | Department | Care Team | Description | +--------+ + + + + | 12/22/ | Transcribed | [facility] at | Oliva, Other | Transcribed | | 1997 | | [facility] [address] | | | | | | [address] | | | | | | Mailcode: [id number] | | | | | | [address] | | | | | | [place], | | | | | | [place] [address] | | | | | | [phone] | | | +--------+ + + + [...] as of this encounter Progress Notes Interface, Tapper Balance Wheel Screw Hole In - 01/03/2007 5:08 AM PST [address] [address] Department of Orthopaedics, [facility] [employer] OP19 December 21, 1997 Jerry Smiley M.D. [address] [place] [id number] RE:Kavon Andujar MR#:[id number] Smiley: Thank [...] Carlson might like. Sincerely, Eric Mcclure M.D. Ct Manager, Department of Orthopaedics and Rehabilitation ERICK/sara A documented in this encounter Plan of Treatment Not on filedocumented as of this encounter Visit Diagnoses Not on filedocumented in this encounter"
--- OUTSIDE RECORDS SUMMARY | ~2019-09-27 | XMS | Encounter Summary ---
Demographics + + + | Address | [address] | | | [place] [address] | + + + | Home Phone [...] Phone | + + +---------+ + | Cahrlotte Andujar | ECON | Unknown | | + + +---------+ + Care Team Providers + +------+ + | Care Staff Reporter Name | Role | Phone | + +------+ + | Rahul Silva MD | PCP | Unavailable | + +------+ + Reason for Visit + + + | Reason | Comments | + + + | Labs Only | loco 08/24/19 | + + + Encounter Details +--------+ + + + + | Date | Type | Department | Care Team | Description | +--------+ + + + + | 09/17/ | Documentati | [facility] | Oly Alvarenga | Labs Only ([facility] | | 2019 | on | NEPRHOLOGY [place] | V, Medical | 08/24/19) | | | | [address] | [employer] | | | | | [address] [place], [place] | | | | | | [address] | | | | | | [phone] | | | +--------+ + + + [...] | | | | | | [place] | | | | | | [address] | | | | | | | | +--------+---------+ + + + | 10/04/ | Office | Nephrology | Farrukh Acuna MD | | | 2018 | Visit | | [address] [facility] | | | | | | [facility] | | | | | | [address] | | | | | | | [...] + + + | REFERENCE LAB | [address] [place] [address] | [place] [address] | [phone] | | [facility] | | | | + + + + + documented in this encounter Visit Diagnoses Not on filedocumented in this encounter"
--- OUTSIDE RECORDS SUMMARY | ~2019-09-27 | XMS | Encounter Summary ---
Demographics + + + | Address | [address] | | | [place] [address] | + + + | Home Phone | | + + + | Preferred Language | Unknown | + + + | Marital Status | Single | + + + | Holiness Affiliation | PRO | + + + [...] [place] | | | | | [address] | | + + + + + Care Team Providers + +------+ + | Care Stripper Cutter Machine Name | Role | Phone | + [...] Clinic | | | | | | [facility], [address] | | | | | | [place], [place] | | | | | | [address] | | | | | | [phone] | | | +--------+ + + + [...] as of this encounter Progress Notes Interface, Metal Room Dental Technician In - 12/25/2006 5:00 AM [facility] DATE: 03/16/98 PLASTIC SURGERY CLINIC SUBJECTIVE: [...] not offer him any help; however, Dr. Nelson Melara in Pain Management recently performed nerve [...] in the near future. Galo Arora M.D. Senior Marketing Coordinator, Division of Plastic & Reconstructive Surgery AYDEE/alfred documented in this encounter Plan of Treatment Not on filedocumented as of this encounter Visit Diagnoses Not on filedocumented in this encounter"
--- OUTSIDE RECORDS SUMMARY | ~2019-09-27 | XMS | Encounter Summary ---
Demographics + + + | Address | [address] | | | [place] [address] | + + + | Home Phone [...] [place] | | | | | [address] | | + + + + + Care Team Providers + +------+ + | Care Dry Roaster Name | Role | Phone | + +------+ + PCP | Unavailable | + +------+ + Encounter Details +--------+ + + + + | Date | Type | Department | Care Team | Description | +--------+ + + + + | 01/31/ | Transcribed | Allergy Clinic at | [place], Other | Transcribed | | 1997 | | [facility] [address] | | | | | | [address] | | | | | | Mailcode: OP34 [address] | | | | | | [place] | | | | | | [place], | | | | | | [place] [address] | | | | | | [phone] | | | +--------+ + + + [...] as of this encounter Progress Notes Interface, Trimmer Helper In - 12/28/2006 5:10 AM PST [address] [address] or January 31, 1998 GRIFFIN SMILEY MD [address] [facility] [address] [place] [address] RE:PORFIRIO ZAVALA MR#:[id number] Smiley: As [...] to hear in our conversation that the [place] [employer] does not cover Ultram in their formulary, since this is a very useful drug in situations exactly like Mr. Zavala's. For those patients in whom stronger opiate [...] in the future. Sincerely, Nelson Melara M.D. Cops, Anesthesiology [facility] Pain Management Center MANDY/geovanni documented in this encounter Plan of Treatment Not on filedocumented as of this encounter Visit Diagnoses Not on filedocumented in this encounter"
--- OUTSIDE RECORDS SUMMARY | ~2019-09-27 | XMS | Encounter Summary ---
Demographics + + + | Address | [address] | | | [place] [address] | + + + | Home Phone [...] + | 07/20/ | Orders Only | [facility] | Farrukh Acuna MD | Anemia of chronic | | 2019 | | NEPHROLOGY [place] | [address] [place] | renal failure, stage | | | | [address] [place] | [address] [place], [place] | 4 (severe) (HCC) | | | | [address] [place], [place] | [address] | (Primary Dx); Stage | | | | [address] | | 4 chronic kidney | | | | [phone] | | disease (HCC); | | | [...] | | | | | [place] | | | | | | [id number] | | | | | | | | +--------+---------+ + + + | 10/04/ | Office | Nephrology | Farrukh Acuna MD | | | 2018 | Visit | | [address] [facility] [place] | | | | | | [address] [facility] [place] | | | | | | [address] | | | | | | | [...]
--- OUTSIDE RECORDS SUMMARY | ~2019-09-27 | XMS | Encounter Summary ---
Demographics + + + | Address | [address] | | | [place] [address] | + + + | Home Phone | | + + + | Preferred Language | Unknown | + + + | Marital Status | Single | + + + | Religion Affiliation | PRO | + + + | Race | White | + + + | Ethnic Group | Not or | + + + Author + + + | Author | [facility] | + + + | Organization | [facility] | + + + | Address | Unknown | + + + | Phone | Unavailable | + + + Support + + + + + | Name | Relationship | Address | Phone | + + + + + | Darci Andujar | VALERIE | [place] | | | | | [address] | | + + + + + Care Team Providers + +------+ + | Care Ear Nose Throat Physician Name | Role | Phone | + [...] Clinic | | | | | | [facility], [address] | | | | | | [place], [place] | | | | | | [address] | | | | | | [phone] | | | +--------+ + + + [...] as of this encounter Progress Notes Interface, Mold Builder In - 01/06/2007 5:03 AM PST CLINIC DATE: 10/31/97 [facility] PAIN MANAGEMENT [facility]ENTER - PROCEDURE NOTE PROCEDURE: [...] his left thigh stump. Nelson Melara M.D. Audio Director, Anesthesiology Pain Management Center MANDY/maryjo documented in this encounter Plan of Treatment Not on filedocumented as of this encounter Visit Diagnoses Not on filedocumented in this encounter"
--- OUTSIDE RECORDS SUMMARY | ~2019-09-27 | XMS | Encounter Summary ---
Demographics + + + | Address | [address] | | | [place] [address] | + + + | Home Phone | | + + + | Preferred Language | Unknown | + + + | Marital Status | Single | + + + | Congregation Affiliation | PRO | + + + [...] [place] | | | | | [address] | | + + + + + Care Team Providers + +------+ + | Care Furnace Cleaner Name | Role | Phone | + [...] Clinic | | | | | | [facility], [address] | | | | | | [place], [place] | | | | | | [address] | | | | | | [phone] | | | +--------+ + + + [...] as of this encounter Progress Notes Interface, Delicate Fabrics Presser In - 01/03/2007 5:08 AM PST CLINIC DATE: 12/22/97 Mr. Andujar is referred by Dr. Jerry Smiley in the [place] area. He is currently followed by the Anesthesia Pain Service at [facility], and also recently has been followed by [...] under Dr. Robert Carlson's supervision here at [facility]. His pain continued, exacerbated by a fall [...] procedure at this time. Eric Mcclure M.D. Security Trainer, Department of Orthopaedics and Rehabilitation AY/sara A cc: Jerry Smiley M.D. (with letter) [address] [place] [address] [address] [place] [address] Robert Carlson M.D. FAX: [phone] Alina Moise M.D. FAX: [phone] Anesthesia Pain ClinicFAX: [phone] documented in this encounter Plan of Treatment Not on filedocumented as of this encounter Visit Diagnoses Not on filedocumented in this encounter
--- OUTSIDE RECORDS SUMMARY | ~2019-09-27 | XMS | Encounter Summary ---
Demographics + + + | Address | [address] | | | [place] [address] | + + + | Home Phone | | + + + | Preferred Language | Unknown | + + + | Marital Status | Single | + + + | Episcopalian Affiliation | PRO | + + + [...] [place] | | | | | [address] | | + + + + + Care Team Providers + +------+ + | Care Frog Farmer Name | Role | Phone | + +------+ + PCP | Unavailable | + +------+ + Encounter Details +--------+ + + + + | Date | Type | Department | Care Team | Description | +--------+ + + + + | 07/16/ | Office | [facility] | Note, Outpatient | Progress Note | | 1998 | Visit-Trans | MEDICINE | Clinic | | | | cribed | | | | +--------+ + + [...] as of this encounter Progress Notes Interface, Pst Manager In - 11/10/2006 2:27 AM PSTCLINIC DATE: 07/16/1999 PLASTIC SURGERY CLINIC SUBJECTIVE: This 59-year-old male is known to me from an operation I did over a year ago involving 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 He did very well following that operation with dramatic relief of his longstanding stump pain; however, over the last five months or so he has begun to develop additional pains in the stump which he describes as phantom pains and shooting pains. When asked to point to which area of the stump, he points to the central superior aspect of the distal end of the stump; however, when his stump is palpated, he has moderate to severe tenderness throughout the area of the distal stump. There is no focal area of extreme tenderness. His tenderness, however, does seem much less than it did prior to his last operation. The stump is soft, and the wound is well healed. ASSESSMENT AND PLAN: As I explained to the patient, I received the referral letter from Dr.Malcolm Smiley just a few days ago and then had written him a letter stating that I would like Mr. Andujar to see Dr. Nelson Melara before I saw Mr. Andujar. Unfortunately, the patient showed up in my clinic today and so I explained this to him and requested that he see Dr. Nelson Melara whom he has previously seen for evaluation and possible nonsurgical options for his recurrent pain. There had been a discussion to have a possible spinal implant by Dr. Alina Moise quite some time ago, and this could certainly be an option. I am not sure what I would be operating on at this point, and I doubt that he would have significant neuromas of the sciatic and femoral nerves as he did previously. An MRI of the stump may be in order, but I would like to have him seen in pain management before he embarked on this. Galo Arora M.D. Truck Sales Representative, Plastic and Reconstructive Surgery WOJCIECH / [id number] / [id number] / [id number] cc: Nelson Melara M.D. Anesthesiology. [facility]. [id number] signed by Interface, Pst Manager In at 11/10/2006 2:27 AM PSTdocume nted in this encounter Plan of Treatment Not on filedocumented as of this encounter Visit Diagnoses Not on filedocumented in this encounter"
--- OUTSIDE RECORDS SUMMARY | ~2019-09-27 | XMS | Encounter Summary ---
Demographics + + + | Address | [address] | | | [place] [address] | + + + | Home Phone | | + + + | Preferred Language | Unknown | + + + | Marital Status | Single | + + + | Denominational Affiliation | PRO | + + + | Race | White | + + + | Ethnic Group | Not or | + + + Author + + + | Author | [facility] | + + + | Organization | [facility] | + + + | Address | Unknown | + + + | Phone | Unavailable | + + + Support + + + + + | Name | Relationship | Address | Phone | + + + + + | Darci Andujar | VALERIE | [place] | | | | | [address] | | + + + + + Care Team Providers + +------+ + | Care Director Of Clinical Trials Name | Role | Phone | + +------+ + PCP | Unavailable | + +------+ + Encounter Details +--------+ + + + + | Date | Type | Department | Care Team | Description | +--------+ + + + + | 12/22/ | Transcribed | Allergy Clinic at | [place], Other | Transcribed | | 1997 | | [facility] [address] | | | | | | [address] | | | | | | Mailcode: OP34 [address] | | | | | | [address] | | | | | | [place], | | | | | | [place] [address] | | | | | | [phone] | | | +--------+ + + + [...] as of this encounter Progress Notes Interface, Sheet Pile Hammer Operator In - 01/03/2007 5:08 AM PST [address] [address] Department of Orthopaedics, [facility] [employer] OP19 December 21, 1997 Jerry Smiley M.D. [address] [place] [address] RE:Kavon Andujar MR#:[id number] Smiley: Thank [...] Carlson might like. Sincerely, Eric Mcclure M.D. Clinical Review Nurse, Department of Orthopaedics and Rehabilitation ERICK/sara A documented in this encounter Plan of Treatment Not on filedocumented as of this encounter Visit Diagnoses Not on filedocumented in this encounter"
--- OUTSIDE RECORDS SUMMARY | ~2019-09-27 | XMS | Encounter Summary ---
Demographics + + + | Address | [address] | | | [place] [address] | + + + | Home Phone | | + + + | Preferred Language | Unknown | + + + | Marital Status | Single | + + + | Roman Catholic Affiliation | PRO | + + + [...] [place] | | | | | [address] | | + + + + + Care Team Providers + +------+ + | Care File Keeper Name | Role | Phone | + [...] Clinic | | | | | | [facility], [address] | | | | | | [place], [place] | | | | | | [address] | | | | | | [phone] | | | +--------+ + + + [...] as of this encounter Progress Notes Interface, An Employee Sponsor Or Advocate And In - 01/09/2007 5:07 AM PST CLINIC DATE: 10/03/97 [facility] PAIN MANAGEMENT CENTER - PROGRESS NOTE [...] Vargas D.O. Resident, Anesthesiology Nelson Melara M.D. Practical Nursing Faculty, Anesthesiology Pain Management Center KAYLEENM/madelinev cc: [place] [address] JESSENIA RODRIGUEZ MD DEPARTMENT OF FAMILY MEDICINE [facility] documented in this encounter Plan of Treatment Not on filedocumented as of this encounter Visit Diagnoses Not on filedocumented in this encounter"
--- OUTSIDE RECORDS SUMMARY | ~2019-09-27 | XMS | Encounter Summary ---
Demographics + + + | Address | [address] | | | [place] [address] | + + + | Home Phone [...] Team Providers + +------+ + | Care Duct Layer Helper Name | Role | Phone | [...] + | 08/10/ | Telephone | [facility] | Brian Orosco MD | Other (orders ) | | 2019 | | VASCULAR SURGERY | [address] | | | | | [address] [place] | [place], [place] | | | | | [place], [place] | [address] | | | | | [address] | [phone] | | | | | [phone] | | | +--------+ + + + [...] | | | | | [place] | | | | | | [address] | | | | | | | | +--------+---------+ + + + | 10/04/ | Office | Nephrology | Farrukh Acuna MD | | | 2019 | Visit | | [address] [facility] | | | | | | [address] [place] | | | | | | [address] | | | | | | | | +--------+---------+ + + + documented as of this encounter Visit Diagnoses Not on filedocumented in this encounter"
--- OUTSIDE RECORDS SUMMARY | ~2019-09-27 | XMS | Encounter Summary ---
Demographics + + + | Address | [address] | | | [place] [address] | + + + | Home Phone [...] [place] | | | | | [address] | | + + + + + Care Team Providers + +------+ + | Care Supervisor Maintenance And Custodians Name | Role | Phone | + +------+ + PCP | Unavailable | + +------+ + Encounter Details +--------+ + + + + | Date | Type | Department | Care Team | Description | +--------+ + + + + | 12/22/ | Results | | Other, Faculty | | | 1997 | Only | | [phone] | | +--------+ + + + + [...] | | | | | | 12/22/96 [id number] hours. | | | | | | [...] | | + +---------+ + + | [facility] DEPARTMENT OF | | | | | [...] | | | | | | | [id number] | | | | | | SPINE, [...] | | + +---------+ + + | [facility] DEPARTMENT OF | | | | | RADIOLOGY | | | | + +---------+ + + documented in this encounter Visit Diagnoses Not on filedocumented in this encounter"
--- OUTSIDE RECORDS SUMMARY | ~2019-09-27 | XMS | Encounter Summary ---
Demographics + + + | Address | [address] | | | [place] [address] | + + + | Home Phone [...] Providers + +------+ + | Care Management Development Specialist Name | Role | Phone | [...] | | | | | | | ([facility]) | | | | | | | [...] + | 09/10/ | Hospital | [facility] | Brian Orosco MD | CKD (chronic kidney | | 2019 | Encounter | [facility] | [address] | disease) stage 5, | | | | OPERATING ROOM [address] | [place], [place] | GFR less than 15 | | | | [address] | [address] | ml/min ([facility]) | | | | [place], [place] | [phone] | | | | | [address] | | | | | | [phone] | | | +--------+ + + + [...] shunt, please contact your ph ysician at [phone]. Discharge instructions for Diagnostic Imaging sedation patients [...] . For any severe symptoms, please call [phone] or report to your nearest Emergency Department. Acetaminophen; Hydrocodone tablets or capsules Brand Names: Anexsia, Lorcet, Lorcet HD, Lorcet Plus, Lortab, Twentynine Palms, Verdrocet, Vicodin, Vi codin ES, Vicodin HP, [...] information carefully each time. Talk to your multi craft maintenance technician regarding the use of this medicine in children. Special care may be needed. What side effects may I notice from receiving this medicine? Side effects that you should report to your doctor or health healthcare translator as soon as p ossible: allergic reactions [...] attention (report to your doctor or health healthcare translator if they continue or are bothersome): constipation [...] to an official disposal site. Contact the [facility] at [phone] or your [facility] to find a site. If you [...] this medicine? Tell your doctor or health healthcare translator if your pain does not go away, [...] pharmacist, or health care provider. Copyright 2019 [employer] Arteriovenous (AV) Fistula for Dialysis An AV [...] cuts, scrapes, or blows. Date Last Reviewed: 12/01/201619999395-0117 [employer] [place] [address], [place] [address]. All righ ts reserved. This information is [...] | | | | | | | ([facility]), Secondary | | | | | | | hyperparathyroidism | | | | | | | ([facility]) | | | | | | + [...] Progress Notes Leana Pimentel RN - 09/10/2019 7395 PDTDischarge instructions (per AVS) explained and discussed with patient and family (patient's daughter-sona). Discussed precautions post-fis vitaly creation, precautions post-anesthesia, signs and symptoms of surgical site incision, he samuel bleeding, incision care, dressing care, and signs and symptoms of blood clots and blood clots prevention. Prescription for Twentynine Palms given and side effects were explained. Patient stat es that he also takes oxycodone at home; patient and his family were educated about taking o xycodone or Twentynine Palms only and not both. OTC Tylenol intake [...] [place] | | | | | | [id number] | | | | | | | | +--------+---------+ + + + | 10/04/ | Office | Nephrology | Farrukh Acuna MD | | | 2018 | Visit | | [address] [facility] [place] | | | | | | [address] [place] | | | | | | [address] | | | | | | | [...] | | | POC | performed at [facility];[address] | | LABORATORY | | | | [address];[place], [place] | | | | | | [address] | | | | + + + + + + + + | Specimen | + + | | + + + + + + + | Performing | Address | City/State/Zipcode | Phone Number | | Organization | | | | + + + + + | [facility] | [address] | [place] [address] | [phone] | + + + + + POC Glucose (09/10/2019 12:13 PDT) + + + + + + | Component | Value | Ref Range | Performed | Pathologist | | | | | At | Signature | + + + + + + | Glucose, | 150 (H)Comment: Testing | 65 - 99 mg/dL | [facility] | | | POC | performed at [facility];[address] | | LABORATORY | | | | [address];[place] | | | | | | [address] | | | | + + + + + + + + | Specimen | + + | | + + + + + + + | Performing | Address | City/State/Zipcode | Phone Number | | Organization | | | | + + + + + | [facility] | [address] | [place] [address] | [phone] | + + + + + documented [...] stage 5, GFR less than 15 ml/min ([facility]) Chronic kidney | | disease, Stage V [...] One week or | | | longer, nzzqvj-zop-ebsha use of | | | at least [...]
--- OUTSIDE RECORDS SUMMARY | ~2019-09-27 | XMS | Encounter Summary ---
Demographics + + + | Address | [address] | | | [place] [address] | + + + | Home Phone | | + + + | Preferred Language | Unknown | + + + | Marital Status | | + + + | Yazdanism Affiliation | 1077 | + + + | Race | Unknown | + + + | Ethnic Group | Unknown | + + + Author + + + | Author | [facility] | | | and [place] | + + + | Organization | [facility] | | | [...] Providers + +------+ + | Care Health Practice Manager Name | Role | Phone | + +------+ + | Rahul Silva MD | PCP | Unavailable | + +------+ + Encounter Details +--------+ + + + + | Date | Type | Department | Care Team | Description | +--------+ + + + + | 09/07/ | Preadmit | [facility] | Brian Orosco MD | | | 2019 | Visit | [facility] | [address] | | | | | CLINIC [address] | [address] | | | | | [address] [place], [place] | [address] | | | | | [address] | [phone] | | | | | [phone] | | | +--------+ + + + [...] for the 09/07/19 encounter (Preadmit Visit) with [facility] ROOM 4 Medication Sig Instructions acyclovir [...] to check-in desk and are in the [facility] waiting room. AttachmentsThe following attachments cannot be sent through Care Everywhere.Hemodialysis Ac cess, Creating a (Hebrew)Dialysis, Arteriovenous (AV) Fistula for (Hebrew)documented in is encounter Plan of Treatment +--------+---------+ [...] [place] | | | | | | [address] | | | | | | | | +--------+---------+ + + + | 10/04/ | Office | Nephrology | Farrukh Acuna MD | | | 2018 | Visit | | [address] [facility] [place] | | | | | | [address] [place] | | | | | | [address] | | | | | | | [...] | | | | | | MDRD IDNM traceable | | | | | | equation.Testing | | | | | | performed at [facility], [address] | | | | | | [facility], | | | | | | [place] [address] | | | | + + + + + + + + | Specimen | + + | Blood | + + + + + + + | Performing | Address | City/State/Zipcode | Phone Number | | Organization | | | | + + + + + | [facility] | [address] | [place] [address] | [phone] | + + + + + CBC [...] | | | Absolute | performed at [facility], [address] | K/uL | LABORATORY | | | | [address], | | | | | | [place] [address] | | | | + + + + + + + + | Specimen | + + | Blood | + + + + + + + | Performing | Address | City/State/Zipcode | Phone Number | | Organization | | | | + + + + + | [facility] | [address] | [place] [address] | [phone] | + + + + + ECG [...]
--- OUTSIDE RECORDS SUMMARY | ~2019-09-27 | XMS | Encounter Summary ---
Demographics + + + | Address | [address] | | | [place] [address] | + + + | Home Phone [...] [place] | | | | | [address] | | + + + + + Care Team Providers + +------+ + | Care Brake Repairer Hydraulic Name | Role | Phone | + [...] | | [facility], [address] | | | | | | [place], [place] | | | | | | [address] | | | | | | [phone] | | | +--------+ + + + [...] as of this encounter Progress Notes Interface, Quantitative Software Engineer In - 01/03/2007 5:08 AM PST CLINIC DATE: 12/22/97 Mr. Andujar is referred by Dr. Jerry Smiley in the [place] area. He is currently followed by the Anesthesia Pain Service at [facility], and also recently has been followed [...] under Dr. Robert Carlson's supervision here at [facility]. His pain continued, exacerbated by a [...] procedure at this time. Eric Mcclure M.D. Dock Worker, Department of Orthopaedics and Rehabilitation AY/sara A cc: Jerry Smiley M.D. (with letter) [address] [place] [address] [address] [place] [address] Robert Carlson M.D. FAX: [phone] Alina Moise M.D. FAX: [phone] [facility] ClinicFAX: [phone] documented in this encounter Plan of Treatment Not on filedocumented as of this encounter Visit Diagnoses Not on filedocumented in this encounter
--- OUTSIDE RECORDS SUMMARY | ~2019-09-27 | XMS | Encounter Summary ---
Demographics + + + | Address | [address] | | | [place] [address] | + + + | Home Phone [...] Team Providers + +------+ + | Care Pet Caretaker Name | Role | Phone | + [...] + + | 09/23/ | Telephone | [facility] | Brian Orosco MD | Advice Only | | 2019 | | VASCULAR SURGERY | [address] | | | | | [address] [place] | [place], [place] | | | | | [place], [place] | [address] | | | | | [address] | [phone] | | | | | [phone] | | | +--------+ + + + [...] [place] | | | | | | [address] | | | | | | | | +--------+---------+ + + + | 10/04/ | Office | Nephrology | Farrukh Acuna MD | | | 2019 | Visit | | [address] [facility] | | | | | | [address] [facility] [place] | | | | | | [address] | | | | | | | | +--------+---------+ + + + documented as of this encounter Visit Diagnoses Not on filedocumented in this encounter"
--- OUTSIDE RECORDS SUMMARY | ~2019-09-27 | XMS | Encounter Summary ---
Demographics + + + | Address | [address] | | | [place] [address] | + + + | Home Phone [...] [place] | | | | | [address] | | + + + + + Care Team Providers + +------+ + | Care Rest Room Matron Name | Role | Phone | + [...] [id number] | | | | | | [place], [place] | | | | | | [address] | | | | | | [phone] | | | +--------+ + + + [...] | + + + + + | [facility] | [address] | [place] [address] | | | PATHOLOGY | [address] [...] | + + + + + | [facility] | [address] | [place] [address] | | | PATHOLOGY | [address] | | | + + + + + documented in this encounter Visit Diagnoses Not on filedocumented in this encounter"
--- OUTSIDE RECORDS SUMMARY | ~2019-09-27 | XMS | Encounter Summary ---
Demographics + + + | Address | [address] | | | [place] [address] | + + + | Home Phone [...] Team Providers + +------+ + | Care Clinic Assistant Name | Role | Phone | + +------+ + | Rahul Sliva MD | PCP | Unavailable | + +------+ + Reason for Visit + + + | Reason | Comments | + + + | Follow-up | | + + + Encounter Details +--------+ + + + + | Date | Type | Department | Care Team | Description | +--------+ + + + + | 09/13/ | Telephone | [facility] | Terri Aguilar, | Follow-up | | 2019 | | VASCULAR SURGERY | Lawn Care Specialist | | | | | [address] | | | | | | [place], [place] | | | | | | [address] | | | | | | [phone] | | | +--------+ + + + [...] [place] | | | | | | [address] | | | | | | | | +--------+---------+ + + + | 10/04/ | Office | Nephrology | Farrukh Acuna MD | | | 2019 | Visit | | [address] [place] | | | | | | [address] [place] | | | | | | [address] | | | | | | | | +--------+---------+ + + + documented as of this encounter Visit Diagnoses Not on filedocumented in this encounter"
--- OUTSIDE RECORDS SUMMARY | ~2019-09-27 | XMS | Encounter Summary ---
Demographics + + + | Address | [address] | | | [place] [address] | + + + | Home Phone [...] Team Providers + +------+ + | Care Pain Management Specialist Name | Role | Phone | + +------+ + | Rahul Silva MD | PCP | Unavailable | + +------+ + Reason for Referral Evaluate & Treat (Routine) + + + + + + + | Status | Reason | Specialty | Diagnoses / | Referred By | Referred To | | | | | Procedures | Contact | Contact | + + + + + + + | Pending | Specialty | Vascular | Diagnoses | [facility] | | Review | Services | Surgery | Stage 5 | Farrukh H, MD | Surgery | | | Required | | chronic | [address] | [address] | | | | | kidney | [address] | [address] | | | | | disease not | [place], | [place], [place] | | | | | on chronic | [place] [address] | [address] | | | | | dialysis | Phone: | Phone: | | | | | ([facility]) | [phone] | [phone] | | | | | Hypertension | Fax: | Fax: | | | | | , | [phone] | [phone] | | | | | unspecified | | | | | | | type | | | + + + + + + + Encounter Details +--------+ + + + + | Date | Type | Department | Care Team | Description | +--------+ + + + + | 07/28/ | Orders Only | [facility] | Farrukh Acuna MD | Iron deficiency | | 2019 | | NEPHROLOGY [place] | [address] | (Primary Dx); Anemia | | | | [address] [place] | [address] [place], [place] | of chronic kidney | | | | [address] [place], [place] | [address] | failure, stage 5 | | | | [address] | | ([facility]); Stage 5 | | | | [phone] | | chronic kidney | | | | | | disease not on | | | | | | chronic dialysis | | | | | | ([facility]); Secondary | | | | | | hyperparathyroidism | | | | | | ([facility]); Hypertension, | | | | | | [...] [place] | | | | | | [address] | | | | | | | | +--------+---------+ + + + | 10/04/ | Office | Nephrology | Farrukh Acuna MD | | | 2019 | Visit | | [address] [facility] [place] | | | | | | [address] [place], [place] | | | | | | [address] | | | | | | | | +--------+---------+ + + + + +--------+ + + | Name | Priori | Associated Diagnoses | Order Schedule | | | ty | | | + +--------+ + + | Basic Metabolic Panel | Routin | Stage 5 chronic | 3 Occurrences | | | e | kidney disease not | starting 07/28/2019 | | | | on chronic dialysis | until 07/28/2020 | | | | ([facility]) Hypertension, | | | | | unspecified type | | + +--------+ + + | Renal Function Panel | Routin | Stage 5 chronic | Expected: | | | e | kidney disease not | 09/27/2019, Expires: | | | | on chronic dialysis | 07/28/2020 | | | | (HCC) Hypertension, | | | | | unspecified type | | + +--------+ + + | CBC with Manual Differential | Routin | Stage 5 chronic | Expected: | | | e | kidney disease not | 09/27/2019, Expires: | | | | on chronic dialysis | 07/28/2020 | | | | (HCC) Hypertension, | | | | | unspecified type | | + +--------+ + + | Magnesium | Routin | Stage 5 chronic | Expected: | | | e | kidney disease not | 09/27/2019, Expires: | | | | on chronic dialysis | 07/28/2020 | | | | (HCC) Hypertension, | | | | | unspecified type | | + +--------+ + + | Iron and Iron Binding Capacity | Routin | Iron deficiency | Expected: | | | e | Anemia of chronic | 09/27/2019, Expires: | | | | kidney failure, | 07/28/2020 | | | | stage 5 (HCC) Stage | | | | | 5 chronic kidney | | | | | disease not on | | | | | chronic dialysis | | | | | (HCC) Hypertension, | | | | | unspecified type | | + +--------+ + + | Ferritin | Routin | Iron deficiency | Expected: | | | e | Anemia of chronic | 09/27/2019, Expires: | | | | kidney failure, | 07/28/2020 | | | | stage 5 (HCC) Stage | | | | | 5 chronic kidney | | | | | disease not on | | | | | chronic dialysis | | | | | ([facility]) Hypertension, | | | | | unspecified type | | + +--------+ + + | Parathyroid Hormone, Intact | Routin | Stage 5 chronic | Expected: | | | e | kidney disease not | 09/27/2019, Expires: | | | | on chronic dialysis | 07/28/2020 | | | | (HCC) Secondary | | | | | hyperparathyroidism | | | | | ([facility]) Hypertension, | | | | | unspecified type | | + +--------+ + + + +--------+ + + | Name | Priori | Associated Diagnoses | Order Schedule | | | ty | | | + +--------+ + + | Ambulatory Referral to [facility] | Routin | Stage 5 chronic | Ordered: 07/28/2019 | | Vascular Surgery | e | kidney disease not | | | | | on chronic dialysis | | | | | (HCC) Hypertension, | | | | | unspecified type | | + +--------+ + + documented [...]
--- OUTSIDE RECORDS SUMMARY | ~2019-09-27 | XMS | Encounter Summary ---
Demographics + + + | Address | [address] | | | [place] [address] | + + + | Home Phone [...] Team Providers + +------+ + | Care Ticket Taker Name | Role | Phone | + [...] | | | | | Procedures | [address] | | | | | | VAS Arm | Phone: | | | | | | Bilateral | [phone] | | | | | | Mapping For | Fax: | | | | | | Dialysis | [phone] | | +--------+--------+ + + + + Diagnostic/Screening (Routine) +--------+--------+ + + + + [...] E | | | | | | ([facility]) | TRE GIBSON | | | | | | Procedures | [address] | | | | | | VAS Arm | Phone: | | | | | | Bilateral | [phone] | | | | | | Mapping For | Fax: | | | | | | Dialysis | [phone] | | +--------+--------+ + + + + Encounter Details +--------+ + + + + | Date | Type | Department | Care Team | Description | +--------+ + + + + | 08/20/ | Hospital | [facility] | Trisha Conner, MERY | 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 | capsule | | 19 | | | capsuleIndications: | | | | | | | Stage 5 chronic | | | | | | | kidney disease not | | | | | | | on chronic dialysis | | | | | | | ([facility]), Secondary | | | | | | | hyperparathyroidism | | | | | | | ([facility]) | | | | | | + [...] + + + +---------+ + + | [facility] | Inject 25 Units | | 0 [...] | 2018 | Visit | | [address] | | | | | | [place], [place] | | | | | | [address] | | | | | | | | +--------+---------+ + + + | 10/04/ | Office | Nephrology | Farrukh Acuna MD | | | 2018 | Visit | | [address] [facility] [place] | | | | | | [address] [place] | | | | | | [address] | | | | | | | [...] | MAPPING FOR DIALYSIS | e | 13:58 PDT | renal disease) ([facility]) | procedure are in the | | [...] | Wiley, Rad Results In - 08/20/2019 1627 PDT | | UPPER EXTREMITY [...]
--- OUTSIDE RECORDS SUMMARY | ~2019-09-27 | XMS | Encounter Summary ---
Demographics + + + | Address | [address] | | | [place] [address] | + + + | Home Phone [...] Providers + +------+ + | Care International Project Engineer Name | Role | Phone | + +------+ + | Rahul Silva MD | PCP | Unavailable | + +------+ + Encounter Details +--------+ + + + + | Date | Type | Department | Care Team | Description | +--------+ + + + + | 07/27/ | Orders Only | [facility] | Farrukh Acuna MD | Chronic kidney | | 2019 | | NEPHROLOGY [place] | [address] [place] | disease, stage IV | | | | [address] [place] | [address] [place], [place] | (severe) (HCC); | | | | [address] [place], [place] | [address] | Chronic kidney | | | | [address] | | disease, stage IV | | | | [phone] | | (severe) ([facility]); | | | | | | Family [...] origin | | | | | | ([facility]); Persistent | | | | | [...] [place] | | | | | | [address] | | | | | | | | +--------+---------+ + + + | 10/04/ | Office | Nephrology | Farrukh Acuna MD | | | 2019 | Visit | | [address] [facility] | | | | | | [address] [facility] [place] | | | | | | [address] | | | | | | | | +--------+---------+ + + + + +--------+ + + | Name | Priori | Associated Diagnoses | Order Schedule | | | ty | | | + +--------+ + + | Iron and Iron Binding Capacity | Routin | Chronic kidney | Expected: | | | e | disease, stage IV | 08/01/2019, Expires: | | | | (severe) (HCC) | 05/31/2020 | | | | Chronic kidney | | | | | disease, stage IV | | | | | (severe) (HCC) | | | | | Family history of | | | | | ischemic heart | | | | | disease and other | | | | | diseases of the | | | | | circulatory system | | | | | Secondary | | | | | hyperparathyroidism | | | | | of renal origin | | | | | ([facility]) Persistent | | | | | proteinuria | | + +--------+ + + documented as of this encounter Visit Diagnoses + + | Diagnosis | + + | Chronic kidney disease, stage IV (severe) ([facility]) Chronic kidney disease, Stage IV | [...]
--- OUTSIDE RECORDS SUMMARY | ~2019-09-27 | XMS | Encounter Summary ---
Demographics + + + | Address | [address] | | | [place] [address] | + + + | Home Phone [...] Team Providers + +------+ + | Care Welder Assembler Name | Role | Phone | [...] + + | 08/10/ | Telephone | [facility] | Brian Orosco MD | Other (orders ) | | 2019 | | VASCULAR SURGERY | [address] | | | | | [address] [place] | [place], [place] | | | | | [place], [place] | [address] | | | | | [address] | [phone] | | | | | [phone] | | | +--------+ + + + [...] | | | | | [place] | | | | | | [id number] | | | | | | | | +--------+---------+ + + + | 10/04/ | Office | Nephrology | Farrukh Acuna MD | | | 2019 | Visit | | [address] [facility] | | | | | | [address] [place] | | | | | | [address] | | | | | | | | +--------+---------+ + + + documented as of this encounter Visit Diagnoses Not on filedocumented in this encounter"
--- OUTSIDE RECORDS SUMMARY | ~2019-09-27 | XMS | Clinical Summary ---
Demographics + + + | Address | [address] | | | [place] [address] | + + + | Home Phone [...] Team Providers + +------+ + | Care Lodging Facilities Manager Name | Role | Phone | + +------+ + | Rahul Silva MD | PCP | Unavailable | + +------+ + Allergies + + [...] + + +---------+------+------+-------+ | amlodipine | Take 10 mg by [...] 0 | | | Activ | | (NEURONTIN) 400 mg | as needed. | | | | | e | [...] + + +---------+------+------+-------+ | LANTUS SOLOSTAR | Inject 25 Units | | 0 | 06/1 | | Activ | | 100 UNIT/ML | under the skin | | | 9/20 | | e | | injection (pen) | nightly. | | | 19 | | | + + + +---------+------+------+-------+ | MERCEDEZZESS 145 MCG | | | [...] mouth every 4 hours | | | 20 | | e | | inhaler | if needed for | | | 19 | | | | | shortness of breath | | | | | | + + + +---------+------+------+-------+ | ondansetron | | | 0 | 05/31 | | Activ | | (ZOFRAN ODT) 8 mg | | | | 08/20 | | e | | disintegrating | [...] + + + +---------+------+------+-------+ | | Take 1 tablet by | 30 | 0 | 10/1 | | Activ | | HYDROcodone-acetamin | mouth every 4 hours | tablet | | 1/20 | | e | | ophen (NORCO) 5-325 | as needed for Pain. | | | 19 | | | | mg per tablet | | | | | | | + + + +---------+------+------+-------+ | albuterol 2.5 mg/3 | Take 2.5 mg by | | 0 | | 10/0 | Disco | | mL nebulizer | nebulization every 6 | | | | 8/20 | ntinu | | solution | hours as needed. | | | | 19 | ed | + + + +---------+------+------+-------+ | acyclovir | Take 400 mg by mouth | | 0 | | 10/1 | Disco | | (ZOVIRAX) 400 MG | 2 times daily. | | | | 1/20 | ntinu | | tablet | Takes 400mg AM and | | | | 19 | ed | | | HS | | | | | | + + + +---------+------+------+-------+ | atorvaSTATin | Take 80 mg by mouth | | 0 | | 10/0 | Disco | | (LIPITOR) 80 MG | daily. | | | | 8/20 | ntinu | | tablet | | | | | 19 | ed | + + + +---------+------+------+-------+ | predniSONE | take 2 tablets by | | 0 | 04/0 | 10/ | Disco | | (DELTASONE) 20 mg | mouth once daily for | | | 3/20 | 8/20 | ntinu | | tablet | 4 days | | | 19 | 19 | ed | + + + +---------+------+------+-------+ Active Problems + + + | Problem | Noted Date | + + + | CKD (chronic kidney disease) stage 5, GFR less than 15 ml/min | 08/26/2019 | + + + + + | Overview: Added automatically from request for surgery | | [id number] | + + + + + | Iron deficiency | 07/26/2019 | + + + | Secondary hyperparathyroidism | 01/17/2017 | + + + | Intractable pain | 08/04/2016 | + + + | Insulin dependent type 2 diabetes mellitus, uncontrolled | 08/04/2016 | + + + | [...] | 08/03/2016 | + + + | Stage 5 chronic kidney disease not on chronic dialysis | 08/03/2016 | + + + | [...] | 06/06/2014 | + + + | Hypertension | 06/06/2014 | + + + + + | Overview: Last Assessment & Plan: Controlled on current | | yr old male with COPD, current heavy [...] | 06/06/2014 | + + + | Proteinuria | 06/06/2014 | + + + + [...] disease) | 02/16/2014 | + + + Encounters +--------+ + [...] Brian Orosco MD | Advice Only | 2018 | | | | | +--------+ + + + + | 09/17/ | Documentati | Nephrology | Oly Alvarenga | Labs Only (interpath | | 2018 | on | | V, Medical | 08/24/19) | | | | | Faculty I On Call Medical Assistant | | +--------+ + + + + | 09/13/ | Telephone | Vascular Surgery | Terri Aguilar, | Follow-up | 2018 | | | Musical Instrument Supervisor | | +--------+ + + + + | 09/10/ | Anesthesia | | Venkata Carroll | | | 2018 | Event | | CORNELL Grewal | [...] | ml/min ([facility]) | +--------+ + + + + | 09/07/ | Preadmit | Pre-Admission | Brian Orosco MD | | | 2018 | Visit | Testing | | | +--------+ + + + + | 09/07/ | Telephone | Vascular Surgery | Sandy Gomez, | Surgery Appointment | | 2018 | | | RN | | +--------+ + + + + | 09/03/ | Telephone | Nephrology | Alfred, | Lab Results | | 2018 | | | Charlie Abdi | | | | | | Faculty I On Call Medical Assistant | | +--------+ + + + + | 09/01/ | Telephone | Vascular Surgery | Brian Orosco MD | Advice Only | | 2018 | | | | (surgery) | +--------+ [...] [place]) | | | | | | (Primary Dx) | +--------+ + + + + | 08/25/ | Telephone | Vascular Surgery | Brian Orosco MD | New Patient (08/26 | 2018 | | | | appointment) | +--------+ + + + + | 08/20/ | Hospital | Radiology | Trisha Conner DNP | ESRD (end stage | | 2018 | Encounter | | | renal disease) (HCC) | +--------+ + + + + | 08/18/ | Refill | Nephrology | Sandy Capellan | Medication Refill | 2018 | | | BAN Valadez [...] + + | 07/30/ | Telephone | Cardiothoracic | Trisha Conner DNP | Referral Consult | 2018 | | Surgery | | | +--------+ + + + + | 07/30/ | Telephone | Vascular Surgery | Brian Orosco MD | Establish Care | | 2018 | | | | (Referral) | +--------+ + + + + | 07/28/ | Orders Only | Nephrology | Farrukh Acuna MD | Iron deficiency | | 2018 | | | | (Primary Dx); Anemia | | | | | | of chronic kidney | | | | | | failure, stage 5 | | | | | | ([facility]); Stage 5 | | | | | | chronic kidney | | | | | | disease not on | | | | | | chronic dialysis | | | | | | ([facility]); Secondary | | | | | | hyperparathyroidism | | | | | | ([facility]); Hypertension, | | | | | | unspecified type | +--------+ + + + + | 07/27/ | Orders Only | Nephrology | Farrukh Acuna MD | Chronic kidney | | 2018 | | | | disease, stage IV | | | | | | (severe) ([facility]); | | | | | | Chronic kidney | | | | | | disease, stage IV | | | | | | (severe) ([facility]); | | | | | | Family [...] origin | | | | | | ([facility]); Persistent | | | | | | proteinuria | +--------+ + + + + | 07/26/ | Office | Nephrology | Farrukh Acuna MD | Stage 5 chronic | | 2019 | Visit | | | kidney disease not | | | | | | on chronic dialysis | | | | | | ([facility]) (Primary Dx); | | | | | | Edema of lower | | | | | | extremity; Tobacco | | | | | | dependence syndrome; | | | | | | Vitamin D | | | | | | deficiency; | | | | | | Hypomagnesemia; | | | | | | Anemia of chronic | | | | | | kidney failure, | | | | | | stage 5 ([facility]); Iron | | | | | | deficiency | +--------+ + + + + | 07/26/ | Orders Only | Nephrology | Farrukh Acuna MD | Chronic kidney | | 2019 | | | | disease, stage IV | | | | | | (severe) ([facility]); | | | | | | Persistent | | | | | | proteinuria; | | | | | | Secondary | | | | | | hyperparathyroidism | | | | | | of renal origin | | | | | | ([facility]) | +--------+ + + + + | 07/21/ | Documentati | Nephrology | Alfred | Results (07/19/19) | | 2019 | on | | Charlie Abdi | | | | | | Faculty I On Call Medical Assistant | | +--------+ + + + + | 07/20/ | Orders Only | Nephrology | Farrukh Acuna MD | Anemia of chronic | | 2018 | | | | renal failure, stage | | | | | | 4 (severe) (HCC) | | | | | | (Primary Dx); Stage | | | | | | 4 chronic kidney | | | | | | disease (HCC); | | | | | | Family history of | | | | | | hypertension; | | | | | | Secondary | | | | | | hyperparathyroidism | | | | | | ([facility]); Persistent | | | | | | proteinuria | +--------+ + + + + | 07/20/ | Orders Only | Nephrology | Farrukh Acuna MD | Stage 4 chronic | 2018 | | | | kidney disease (HCC) | | | | | | (Primary Dx); | | | | | | Persistent | | | | | | proteinuria; | | | | | | Secondary | | | | | | hyperparathyroidism | | | | | | (HCC) | +--------+ + + + + from [...] + + | Pulse | 61 | 09/10/20191599 PDT | + + + + | [...] Weight | 80.7 kg (178 lb) | 09/10/20191214 PDT | + + + + | Height | 172.7 cm (5' 8") | 09/10/20191214 PDT | + + + + | Body Mass Index | 27.06 | 09/10/20191214 PDT | + + + + Plan [...] [place] | | | | | | [address] | | | | | | | | +--------+---------+ + + + | 10/04/ | Office | Nephrology | Farrukh Acuna MD | | | 2018 | Visit | | [address] | | | | | | [address] [place] | | | | | | [address] | | | | | | | [...] + + + + | Vaccine: | Completed | 08/23/2017, 09/06/2015, | | | Pneumococcal 65+ | | 09/07/2014, Additional history | | | High/Highest Risk | | exists | | + + [...] e | 13:58 PDT | renal disease) (HCC) | procedure are [...] + + from Last 3 Months Results POC Glucose (09/10/2019 14:12 PDT)Only the most recent of 2 results [...] | | | POC | performed at [facility];[address] | | LABORATORY | | | | [address];[place], [place] | | | | | | [address] | | | | + + + + + + + + | Specimen | + + | | + + + + + + + | Performing | Address | City/State/Zipcode | Phone Number | | Organization | | | | + + + + + | [facility] | [address] | [place] [address] | [phone] | + + + + + CBC [...] 0.09Comment: Testing | 0.00 - 0.10 | [facility] | | | Absolute | performed at [facility], [address] | [address] | LABORATORY | | | | [address] [address], | | | | | | [place] [address] | | | | + + + + + + + + | Specimen | + + | Blood | + + + + + + + | Performing | Address | City/State/Zipcode | Phone Number | | Organization | | | | + + + + + | [facility] | [address] | [place] [address] | [phone] | + + + + + Basic Metabolic Panel (09/07/2019 13:58 PDT)Only the most recent of 3 results within the ti ms period is included. + + + + [...] | | | | | | MDRD IDWI traceable | | | | | | equation.Testing | | | | | | performed at [facility], [address] | | | | | | [facility], | | | | | | [place] [address] | | | | + + + + + + + + | Specimen | + + | Blood | + + + + + + + | Performing | Address | City/State/Zipcode | Phone Number | | Organization | | | | + + + + + | [facility] | [address] | [place] [address] | [phone] | + + + + + ECG [...] +---------+ + + External Lab: PTH, Intact (07/19/2019 [...] | + + | | + + Iron and Iron Binding Capacity (07/19/2019 15:30 [...] +--------+ +---------+--------+ | MEDICARE | MEDICA | [id number] | 07/01/20 | [phone] | | Medica | | | RE | | 05-Pre | 5 | | re | | | PART A | | sent | | | | | | AND B | | | | | | + +--------+ +--------+ +---------+--------+ | [employer] | MODA | [id number] | 07/04/20 | [phone] | | Medica | | MEDICAID HMO | HEALTH | | 19-Pre | 1 | | id | | | MDCD | | sent | | | | | | [place] | | | | | | + +--------+ +--------+ +---------+--------+ | [place]ICAID [place] | MEDICA | [id number] | | [phone] | | Medica | [...] Person | Self | [birth year] | | [address] | | [place] | al/Fam | | 1940 | [id number] | [place] | | | chula | | | 1 (Home) | [address] | + +--------+ +--------+ + + | Kavon Andujar | Person | Self | [birth year] | | [address] | | [place] | al/Fam | | 1940 | [phone] | [place] | | | chula | | | 1 (Home) | [address] | + +--------+ +--------+ + + Advance Directives Patient has advance care planning documents, and code status on file. For more information, please contact:[facility] [place] [address] + + + + + | Code Status | Date | Date | Comments | | | Activated | Inactivated | | + + + + + | Full Code | 09/10/2019 | 09/10/2019 | | | | 14:36 | 18:34 | | + + + + + + + + +---+ | | | | | + + + +---+ | Full Code | 08/04/2016 | 08/05/2016 | | | | 2:45 | 15:29 | | + + + +---+
--- OUTSIDE RECORDS SUMMARY | ~2019-09-27 | XMS | Encounter Summary ---
Demographics + + + | Address | [address] | | | [place] [address] | + + + | Home Phone | | + + + | Preferred Language | Unknown | + + + | Marital Status | | + + + | Cheondoism Affiliation | 1077 | + + + | Race | Unknown | + + + | Ethnic Group | Unknown | + + + Author + + + | Author | [facility] (Historical as of | | | 07-17-19) | + + + | Organization | [facility] (Historical as of | | | 07-17-19) [...] Providers + +------+ + | Care Customer Quality Specialist Name | Role | Phone | [...] | | | | | [place] [address] | | | | | | [phone] | | | +--------+ + + + [...]
--- OUTSIDE RECORDS SUMMARY | ~2019-09-27 | XMS | Encounter Summary ---
Demographics + + + | Address | [address] | | | [place] [address] | + + + | Home Phone [...] + + + | Author | [facility] | + + + | Organization | [facility] | + + + | Address | Unknown | + + + | Phone | Unavailable | + + + Support + + + + + | Name | Relationship | Address | Phone | + + + + + | Darci Andujar | VALERIE | [place] | | | | | [address] | | + + + + + Care Team Providers + +------+ + | Care Physics Tutor Name | Role | Phone | + +------+ + PCP | Unavailable | + +------+ + Encounter Details +--------+ + + + + | Date | Type | Department | Care Team | Description | +--------+ + + + + | 01/03/ | Discharge | Allergy Clinic at | Summary, Discharge | D/C Summary ODDS | | 1996 | Summary-Tra | [facility] [address] | | | | | nscribed | [address] | | | | | | Mailcode: [address] | | | | | | [address] [place] | | | | | | [place], | | | | | | [place] [address] | | | | | | [phone] | | | +--------+ + + + [...] as of this encounter Discharge Summaries Interface, Tearer In - 02/05/2007 1:03 AM PST [address] [address] [facility] MEDICAL SUMMARY OF HOSPITALIZATION Med Rec No.: [id number] Admission Date: 12/28/96 Name: Kavon Andujar Discharge Date: 01/03/97 STAFF PHYSICIAN: Robert Carlson M.D. Professor, Vascular Surgery PRINCIPAL FINAL DIAGNOSIS: Osteophyte of left uebit-oxq-pcfj amputation stump. ADDITIONAL DIAGNOSES: Phantom pain. PRINCIPAL PROCEDURE: Revision of left xftgo-zdo-dolv amputation stump and excision of left stump osteophyte. 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 Since then he has had pain in the stump. On a computed tomography (CT) scan, it was noted that he had a large bone spur and a cyst in his stump site. HOSPITAL COURSE: The patient was admitted on December 28 and underwent revision of his left bhkcn-lif-vbwu amputation stump with excision of his left [...] Normal. 3. DIET: Normal. Nick Noriega M.D. Director Account Management, General Surgery Robert Carlson M.D. Professor, Vascular Surgery DOMINIC/jc A cc: RUBIA KNAPP MD [address] [facility] [address] documented in this encounter Plan of Treatment Not on filedocumented as of this encounter Visit Diagnoses Not on filedocumented in this encounter"
--- OUTSIDE RECORDS SUMMARY | ~2019-09-27 | XMS | Encounter Summary ---
Demographics + + + | Address | [address] | | | [place] [address] | + + + | Home Phone [...] [place] | | | | | [address] | | + + + + + Care Team Providers + +------+ + | Care Spring Coiler Name | Role | Phone | + +------+ + PCP | Unavailable | + +------+ + Encounter Details +--------+ + + + + | Date | Type | Department | Care Team | Description | +--------+ + + + + | 12/22/ | Transcribed | Allergy Clinic at | Oliva, Other | Transcribed | | 1997 | | [facility] [address] | | | | | | [address] | | | | | | Mailcode: [address] | | | | | | [address] | | | | | | [place], | | | | | | [place] [address] | | | | | | [phone] | | | +--------+ + + + [...] as of this encounter Progress Notes Interface, Rehabilitation Therapy Aide In - 01/03/2007 5:08 AM PST [address] [address] Department of Orthopaedics, [facility] OP19 December 21, 1997 Jerry Smiley M.D. [address] [place] [id number] RE:Kavon Andujar MR#:[id number] Smiley: Thank [...] Carlson might like. Sincerely, Eric Mcclure M.D. Edi Coordinator, Department of Orthopaedics and Rehabilitation ERICK/sara A documented in this encounter Plan of Treatment Not on filedocumented as of this encounter Visit Diagnoses Not on filedocumented in this encounter"
--- OUTSIDE RECORDS SUMMARY | ~2019-09-27 | XMS | Encounter Summary ---
Demographics + + + | Address | [address] | | | [place] [address] | + + + | Home Phone [...] Providers + +------+ + | Care Supervisor [employer] Name | Role | Phone | + [...] [address] | [place], [place] | | | | | [place], [place] | [address] | | | | | [address] | [phone] | | | | | [phone] | | | +--------+ + + + [...] [place] | | | | | | [address] | | | | | | | | +--------+---------+ + + + | 10/04/ | Office | Nephrology | Farrukh Acuan MD | | | 2019 | Visit | | [address] [facility] | | | | | | [address] [place], [place] | | | | | | [address] | | | | | | | | +--------+---------+ + + + documented as of this encounter Visit Diagnoses Not on filedocumented in this encounter"
--- OUTSIDE RECORDS SUMMARY | ~2019-09-27 | XMS | Encounter Summary ---
Demographics + + + | Address | [address] | | | [place] [address] | + + + | Home Phone [...] Team Providers + +------+ + | Care Underwriting Internship Name | Role | Phone | + [...] + + | 09/13/ | Telephone | [facility] | Terri Aguilar, | Follow-up | | 2019 | | VASCULAR SURGERY | Nuclear Equipment Research Engineer | | | | | [address] | | | | | | [place], [place] | | | | | | [address] | | | | | | [phone] | | | +--------+ + + + [...] [place] | | | | | | [address] | | | | | | | | +--------+---------+ + + + | 10/04/ | Office | Nephrology | Farrukh Acuna MD | | | 2019 | Visit | | [address] [place] | | | | | | [address] [place] | | | | | | [address] | | | | | | | | +--------+---------+ + + + documented as of this encounter Visit Diagnoses Not on filedocumented in this encounter"
--- OUTSIDE RECORDS SUMMARY | ~2019-09-27 | XMS | Encounter Summary ---
Demographics + + + | Address | [address] | | | [place] [address] | + + + | Home Phone [...] Providers + +------+ + | Care Power Reactor Operator Name | Role | Phone | + +------+ + | Rahul Silva MD | PCP | Unavailable | + +------+ + Encounter Details +--------+ + + + + | Date | Type | Department | Care Team | Description | +--------+ + + + + | 07/26/ | Orders Only | [facility] | Farrukh Acuna MD | Chronic kidney | | 2019 | | NEPRHOLOGY [place] | [address] | disease, stage IV | | | | [address] | [address] [place], [place] | (severe) ([facility]); | | | | [address] [place], [place] | [address] | Persistent | | | | [address] | | proteinuria; | | | | [phone] | | Secondary | | | | | | hyperparathyroidism | | | | | | of renal origin | | | | | | ([facility]) | +--------+ + + + + Social [...] 2019 | Visit | | [address] | | | | | | [place] | | | | | | [address] | | | | | | | | +--------+---------+ + + + | 10/04/ | Office | Nephrology | Farrukh Acuna MD | | | 2019 | Visit | | [address] [facility] | | | | | | [address] [place], [place] | | | | | | [address] | | | | | | | [...] | 05/19/2019, Expires: | | | | (severe) (HCC) | 03/08/2020 | | | | Persistent | | | | | proteinuria | | | | | Secondary | | | | | hyperparathyroidism | | | | | of renal origin | | | | | (HCC) | [...]
--- OUTSIDE RECORDS SUMMARY | ~2019-09-27 | XMS | Encounter Summary ---
Demographics + + + | Address | [address] | | | [place] [address] | + + + | Home Phone [...] [place] | | | | | [address] | | + + + + + Care Team Providers + +------+ + | Care Supervisor Stripping Name | Role | Phone | + [...] | | | | | | [place], | | | | | | [place] [address] | | | | | | [phone] | | | +--------+ + + + [...] as of this encounter Discharge Summaries Interface, School Psychological Examiner In - 02/05/2007 1:03 AM PST [address] [address] [facility] MEDICAL SUMMARY OF HOSPITALIZATION Med Rec No.: [id number] Admission Date: 12/28/96 Name: Kavon Andujar Discharge Date: 01/03/97 STAFF PHYSICIAN: Robert Carlson M.D. Professor, Vascular Surgery PRINCIPAL FINAL DIAGNOSIS: Osteophyte of left vczss-fss-zwco amputation stump. ADDITIONAL DIAGNOSES: Phantom pain. PRINCIPAL PROCEDURE: Revision of left qvmvn-qpv-htzd amputation stump and excision of left stump osteophyte. 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 Since then he has had pain in the stump. On a computed tomography (CT) scan, it was noted that he had a large bone spur and a cyst in his stump site. HOSPITAL COURSE: The patient was admitted on December 28 and underwent revision of his left fluvw-wdy-gmgb amputation stump with excision of his left [...] Normal. 3. DIET: Normal. Nick Noriega M.D. Tube Roller, General Surgery Robert Carlson M.D. Professor, Vascular Surgery DOMINIC/jc A cc: RUBIA KNAPP MD [address] [facility] [address] documented in this encounter Plan of Treatment Not on filedocumented as of this encounter Visit Diagnoses Not on filedocumented in this encounter"
--- OUTSIDE RECORDS SUMMARY | ~2019-09-27 | XMS | Encounter Summary ---
Demographics + + + | Address | [address] | | | [place] [address] | + + + | Home Phone [...] Team Providers + +------+ + | Care Calciner Operator Name | Role | Phone | [...] + + | 07/30/ | Telephone | [facility] | Brian Orosco MD | Establish Care | | 2019 | | VASCULAR SURGERY | [address] | (Referral) | | | | [address] | [place], [place] | | | | | [place], [place] | [address] | | | | | [address] | [phone] | | | | | [phone] | | | +--------+ + + + [...] [place] | | | | | | [address] | | | | | | | | +--------+---------+ + + + | 10/04/ | Office | Nephrology | Farrukh Acuna MD | | | 2019 | Visit | | [address] [facility] | | | | | | [facility] | | | | | | [address] | | | | | | | | +--------+---------+ + + + documented as of this encounter Visit Diagnoses Not on filedocumented in this encounter"
--- OUTSIDE RECORDS SUMMARY | ~2019-09-27 | XMS | Encounter Summary ---
Demographics + + + | Address | [address] | | | [place] [address] | + + + | Home Phone [...] Providers + +------+ + | Care Car Deliverer Name | Role | Phone | + [...] + + | 09/23/ | Telephone | [facility] | Brian Orosco MD | Advice Only | | 2019 | | VASCULAR SURGERY | [address] | | | | | [address] | [place], [place] | | | | | [place], [place] | [address] | | | | | [address] | [phone] | | | | | [phone] | | | +--------+ + + + [...] [place] | | | | | | [address] | | | | | | | | +--------+---------+ + + + | 10/04/ | Office | Nephrology | Farrukh Acuna MD | | | 2019 | Visit | | [address] [facility] | | | | | | [address] [facility] [place] | | | | | | [address] | | | | | | | | +--------+---------+ + + + documented as of this encounter Visit Diagnoses Not on filedocumented in this encounter"
--- OUTSIDE RECORDS SUMMARY | ~2019-09-27 | XMS | Encounter Summary ---
Demographics + + + | Address | [address] | | | [place] [address] | + + + | Home Phone [...] [place] | | | | | [address] | | + + + + + Care Team Providers + +------+ + | Care Dispatcher Service Name | Role | Phone | + [...] Rd | | | | | | [place], [place] | | | | | | [address] | | | +--------+ + + + [...] as of this encounter Progress Notes Interface, Sludge Filtration Attendant In - 03/27/2007 3:12 AM PDT [...] an abnormal AC-BE, he was referred to [facility] for colonoscopy. MEDICATIONS: 1. Vicodin. 2. [...] Valles who is his physician in [place], [place]. He has made me aware that [...] M.D. Fellow, Gastroenterology SHANEL/stephon cc: ARI[place]KINS [facility] [place] documented in this encounter Plan of Treatment Not on filedocumented as of this encounter Visit Diagnoses Not on filedocumented in this encounter"
--- OUTSIDE RECORDS SUMMARY | ~2019-09-27 | XMS | Encounter Summary ---
Demographics + + + | Address | [address] | | | [place] [address] | + + + | Home Phone [...] Author + + + | Author | [facility] | + + + | Organization | [facility] | + + + | Address | Unknown | + + + | Phone | Unavailable | + + + Support + + + + + | Name | Relationship | Address | Phone | + + + + + | Darci Andujar | VALERIE | [place] | | | | | [address] | | + + + + + [...] | 1992 | Only | [facility] [address] | [address] | | | | | [address] | [place], | | | | | Mailcode: [id number] | [place] [address] | | | | | Emelyn [place]alvo | [phone] | | | | | [place], [place] | | | | | | [address] | | | | | | [phone] | | | +--------+ + + + [...] | | | | | | a [place]Lu[place] catheter | | | | | | [...] | | | | placement of a [place]pe | | | | | | catheter. CHEST, | | | | | | SINGLE AP PORTABLE: | | | | | | 03-31-93 AT 1000 HOURS | | | | | | FINDINGS: Since the | | | | | | prior study, the | | | | | | [place] catheter has | | | | | [...] IMPRESSION: | | | | | | [place]-Lupe catheter | | | | | | [...] The | | | | | | [place]-Lu[place] catheter | | | | | | [...] and | | | | | | [place]-Lu[place] catheter | | | | | | [...] endotracheal | | | | | | tube,[place]-Lupe catheter | | | | | | [...] + +---------+ + + | [facility] DEPARTMENT OF | | | | [...] | + + + + + | [facility] | [address] | [place] [address] | | | PATHOLOGY | [address] | | | + + + + + documented in this encounter Visit Diagnoses Not on filedocumented in this encounter"
--- OUTSIDE RECORDS SUMMARY | ~2019-09-27 | XMS | Encounter Summary ---
Demographics + + + | Address | [address] | | | [place] [address] | + + + | Home Phone [...] Team Providers + +------+ + | Care Assurance Sourcing Manager Name | Role | Phone | [...] | | | ([facility]) | | | | | [...] + + | 09/10/ | Surgery | [facility] | Brian Orosco MD | INSERTION AV FISTULA | | 2019 | [facility] | [address] | (Right BBF) | | | | OPERATING ROOM [address] | [place] | | | | | [address] | [address] | | | | | [place] | [phone] | | | | | [address] | | | | | | [phone] | | | +--------+---------+ + + + [...] 09/10/2019Formatting of this note might be different varghese m the original. Dr. Orosco AV DIALYSIS [...] shunt, please contact your ph ysician at [phone]. Discharge instructions for Diagnostic Imaging sedation patients [...] . For any severe symptoms, please call [phone] or report to your nearest Emergency Department. Acetaminophen; Hydrocodone tablets or capsules Brand Names: Anexsia, Lorcet, Lorcet HD, Lorcet Plus, Lortab, Aquasco, Verdrocet, Vicodin, Vi codin ES, Vicodin HP, [...] information carefully each time. Talk to your environmental engineering technician regarding the use of this medicine in children. Special care may be needed. What side effects may I notice from receiving this medicine? Side effects that you should report to your doctor or health pharmacist critical care as soon as p ossible: [...] attention (report to your doctor or health pharmacist critical care if they continue or are [...] to an official disposal site. Contact the [facility] at [phone] or your [facility] government to find a site. If [...] this medicine? Tell your doctor or health pharmacist critical care if your pain does not [...] not stand or sit up quickly, tisha mcdonoughy if you are an older patient. This [...] pharmacist, or health care provider. Copyright 2019 [employer] [employer] Arteriovenous (AV) Fistula for Dialysis An AV [...] cuts, scrapes, or blows. Date Last Reviewed: 12/01/201619997688-2205 The [employer]. [address] [place] [address], [place] [address]. All righ ts reserved. This information is [...] | | | ([facility]), Secondary | | | | | | | hyperparathyroidism | | | | | | | ([facility]) | | | | | [...] + + + +---------+ + + | BRIAN CALABRESE | Inject 25 Units | | [...] Progress Notes Leana Pimentel RN - 09/10/2019 5865 PDTDischarge instructions (per AVS) explained and discussed with patient and family (patient's daughter-sona). Discussed precautions post-fis vitaly creation, precautions post-anesthesia, signs and symptoms of surgical site incision, he samuel bleeding, incision care, dressing care, and signs and symptoms of blood clots and blood clots prevention. Prescription for Aquasco given and side effects were explained. Patient stat es that he also takes oxycodone at home; patient and his family were educated about taking o xycodone or Aquasco only and not both. OTC Tylenol intake [...] [place] | | | | | | [phone] | | | | | | | | +--------+---------+ + + + | 10/04/ | Office | Nephrology | Farrukh Acuna MD | | | 2018 | Visit | | [address] [facility] [place] | | | | | | [address] | | | | | | [address] | | | | | | | [...] Testing | 65 - 99 mg/dL | [facility] | | | POC | performed at [facility];888 | | LABORATORY | | | | [address];[place] | | | | | | [address] | | | | + + + + + + + + | Specimen | + + | | + + + + + + + | Performing | Address | City/State/Zipcode | Phone Number | | Organization | | | | + + + + + | [facility] | [address] | [place] [address] | [phone] | + + + + + POC Glucose (09/10/2019 12:13 PDT) + + + + + + | Component | Value | Ref Range | Performed | Pathologist | | | | | At | Signature | + + + + + + | Glucose, | 150 (H)Comment: Testing | 65 - 99 mg/dL | [facility] | | | POC | performed at [facility];[address] | | LABORATORY | | | | [address];[place] | | | | | | [address] | | | | + + + + + + + + | Specimen | + + | | + + + + + + + | Performing | Address | City/State/Zipcode | Phone Number | | Organization | | | | + + + + + | [facility] | [address] | [place] [address] | [phone] | + + + + + documented [...] GFR less than 15 ml/min ([facility]) Chronic kidney | | disease, [...] ONCE PRN, Wheezing, | | | Starting Fri09/10/19 at 1401, | | | For 1 [...] with lidocaine 1% 20 | | 19 13:24 | | | | | mL, sodium bicarbonate 1 mEq/mL 5 | | PDT | | | | | mL Optesia Mixture PRN, | | | | | | | Starting Fri09/10/19 at 1324, | | | | | [...] One week or | | | longer, cxgqmj-rmq-daees use of | | | at least [...] | (RECOTHROM) solution PRN, | | 19 13:35 | Units | | | | Starting 09/10/19 at 1335, | | PDT | | | | | Intra-op | | | | | | + +-------+ +--------+---+---+ +---+---+ | | | +---+---+ documented in this encounter
--- OUTSIDE RECORDS SUMMARY | ~2019-09-27 | XMS | Encounter Summary ---
Demographics + + + | Address | [address] | | | [place] [address] | + + + | Home Phone | | + + + | Preferred Language | Unknown | + + + | Marital Status | Single | + + + | Rastafarian Affiliation | PRO | + + + [...] [place] | | | | | [address] | | + + + + + Care Team Providers + +------+ + | Care Car Repair Supervisor Name | Role | Phone | + +------+ + PCP | Unavailable | + +------+ + Encounter Details +--------+ + + + + | Date | Type | Department | Care Team | Description | +--------+ + + + + | 12/22/ | Results | | Other, Faculty | | | 1997 | Only | | [phone] | | +--------+ + + + + [...] | | | | | | 12/22/96 [id number] hours. | | | | | | [...] | | + +---------+ + + | [facility] DEPARTMENT OF | | [...] | | | | | | | [id number] | | | | | | SPINE, [...] | | + +---------+ + + | [facility] DEPARTMENT OF | | | | | RADIOLOGY | | | | + +---------+ + + documented in this encounter Visit Diagnoses Not on filedocumented in this encounter"
--- OUTSIDE RECORDS SUMMARY | ~2019-09-27 | XMS | Encounter Summary ---
Demographics + + + | Address | [address] | | | [place] [address] | + + + | Home Phone [...] Providers + +------+ + | Care Tire Setter Name | Role | Phone | [...] | | | | | | | ([facility]) | | | | | | [...] + + | 09/10/ | Surgery | [facility] | Brian Orosco MD | INSERTION AV FISTULA | | 2019 | [facility] | [address] | (Right BBF) | | | | OPERATING ROOM [address] | [place] | | | | | [address] | [address] | | | | | [place] | [phone] | | | | | [address] | | | | | | [phone] | | | +--------+---------+ + + + [...] shunt, please contact your ph ysician at [phone]. Discharge instructions for Diagnostic Imaging sedation patients [...] . For any severe symptoms, please call [phone] or report to your nearest Emergency Department. Acetaminophen; Hydrocodone tablets or capsules Brand Names: Anexsia, Lorcet, Lorcet HD, Lorcet Plus, Lortab, [place], Verdrocet, Vicodin, Vi codin ES, Vicodin HP, [...] information carefully each time. Talk to your evp general counsel regarding the use of this medicine in children. Special care may be needed. What side effects may I notice from receiving this medicine? Side effects that you should report to your doctor or health cna caregiver as soon as p ossible: allergic [...] attention (report to your doctor or health cna caregiver if they continue or are bothersome): [...] to an official disposal site. Contact the [facility] at [phone] or your [facility] government to find a site. If [...] this medicine? Tell your doctor or health cna caregiver if your pain does not go [...] pharmacist, or health care provider. Copyright 2019 [employer] Arteriovenous (AV) Fistula for Dialysis An AV [...] cuts, scrapes, or blows. Date Last Reviewed: 12/01/201619994590-5671 The [employer]. [address] [place] [address], [place] [address]. All righ ts reserved. This information is [...] | | | | | | | ([facility]), Secondary | | | | | | | hyperparathyroidism | | | | | | | ([facility]) | | | | | | [...] Progress Notes Leana Pimentel RN - 09/10/2019 9385 PDTDischarge instructions (per AVS) explained and discussed with patient and family (patient's daughter-sona). Discussed precautions post-fis vitaly creation, precautions post-anesthesia, signs and symptoms of surgical site incision, he samuel bleeding, incision care, dressing care, and signs and symptoms of blood clots and blood clots prevention. Prescription for [place] given and side effects were explained. Patient stat es that he also takes oxycodone at home; patient and his family were educated about taking o xycodone or [place] only and not both. OTC Tylenol intake [...] [place] | | | | | | [id number] | | | | | | | | +--------+---------+ + + + | 10/04/ | Office | Nephrology | Farrukh Acuna MD | | | 2018 | Visit | | [address] [facility] [place] | | | | | | [address] | | | | | | [address] | | | | | | | [...] Testing | 65 - 99 mg/dL | [facility] | | | POC | performed at [facility];888 | | LABORATORY | | | | [address];[place] | | | | | | [address] | | | | + + + + + + + + | Specimen | + + | | + + + + + + + | Performing | Address | City/State/Zipcode | Phone Number | | Organization | | | | + + + + + | [facility] | [address] | [place] [address] | [phone] | + + + + + POC Glucose (09/10/2019 12:13 PDT) + + + + + + | Component | Value | Ref Range | Performed | Pathologist | | | | | At | Signature | + + + + + + | Glucose, | 150 (H)Comment: Testing | 65 - 99 mg/dL | [facility] | | | POC | performed at [facility];[address] | | LABORATORY | | | | [address];[place] | | | | | | [address] | | | | + + + + + + + + | Specimen | + + | | + + + + + + + | Performing | Address | City/State/Zipcode | Phone Number | | Organization | | | | + + + + + | [facility] | [address] | [place] [address] | [phone] | + + + + + documented [...] One week or | | | longer, ufmhmp-nzm-pasts use of | | | at least [...]
--- OUTSIDE RECORDS SUMMARY | ~2019-09-27 | XMS | Encounter Summary ---
Demographics + + + | Address | [address] | | | [place] [address] | + + + | Home Phone [...] [place] | | | | | [address] | | + + + + + Care Team Providers + +------+ + | Care Shellfish Harvester Name | Role | Phone | + [...] [id number] | | | | | | [place], [place] | | | | | | [address] | | | | | | [phone] | | | +--------+ + + + [...] | + + + + + | [facility] | [address] | [place] [address] | | | PATHOLOGY | [address] [...] | + + + + + | [facility] | [address] | [place] [address] | | | PATHOLOGY | [address] | | | + + + + + documented in this encounter Visit Diagnoses Not on filedocumented in this encounter"
--- OUTSIDE RECORDS SUMMARY | ~2019-09-27 | XMS | Encounter Summary ---
Demographics + + + | Address | [address] | | | [place] [address] | + + + | Home Phone [...] + + + | Author | [facility] | + + + | Organization | [facility] | + + + | Address | Unknown | + + + | Phone | Unavailable | + + + Support + + + + + | Name | Relationship | Address | Phone | + + + + + | Darci Zavala | VALERIE | [place] | | | | | [address] | | + + + + + Care Team Providers + +------+ + | Care Client Relationship Manager Name | Role | Phone | + +------+ + PCP | Unavailable | + +------+ + Encounter Details +--------+ + + + + | Date | Type | Department | Care Team | Description | +--------+ + + + + | 09/09/ | Transcribed | Allergy Clinic at | Oliva, Other | Transcribed | | 1995 | | [facility] [address] | | | | | | [address] | | | | | | Mailcode: [address] | | | | | | [address] [place] | | | | | | [place], | | | | | | [place] [address] | | | | | | [phone] | | | +--------+ + + + [...] of this encounter Progress Notes Interface, Hotel Front Office Manager In - 02/14/2007 3:12 AM PDT [address] [address] or September 09, 1996 Nestor VALLES MD [address] [place] [address] RE: PORFIRIO ZAVALA MR#: [id number] Valles: Your patient, Porfirio Zavala, was seen for follow up today in the Neurosurgery Clinic at [facility]. 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 Following our initial evaluation, we recommended [...] Fellow, Neurosurgery Alina Moise M.D. Professor and Medical Data Entry Clerk, Division of Neurosurgery HECTOR/hiro documented in this encounter Plan of Treatment Not on filedocumented as of this encounter Visit Diagnoses Not on filedocumented in this encounter"
--- OUTSIDE RECORDS SUMMARY | ~2019-09-27 | XMS | Encounter Summary ---
Demographics + + + | Address | [address] | | | [place] [address] | + + + | Home Phone [...] Providers + +------+ + | Care Vessel Specialist Name | Role | Phone | [...] + + | 08/18/ | Refill | [facility] | Sandy Capellan | Medication Refill | | 2018 | | NEPRHOLOGY PAIGE Valadez RN | | | | | [address] | | | | | | [address] [place] | | | | | | [address] | | | | | | [phone] | | | +--------+--------+ + + + [...] SOW | | | | | | [id number] | | | | | | | | +--------+---------+ + + + | 10/04/ | Office | Nephrology | Farrukh Acuna MD | | | 2019 | Visit | | [address] [facility] | | | | | | [address] [place], [place] | | | | | | [address] | | | | | | | [...]
--- OUTSIDE RECORDS SUMMARY | ~2019-09-27 | XMS | Encounter Summary ---
Demographics + + + | Address | [address] | | | [place] [address] | + + + | Home Phone [...] [place] | | | | | [address] | | + + + + + Care Team Providers + +------+ + | Care Manager Management Name | Role | Phone | + +------+ + PCP | Unavailable | + +------+ + Encounter Details +--------+ + + + + | Date | Type | Department | Care Team | Description | +--------+ + + + + | 03/30/ | Results | | Other, Faculty | | | 1992 | Only | | [phone] | | +--------+ + + + + [...] | | + +---------+ + + | [facility] DEPARTMENT OF | | | [...] | | + +---------+ + + | [facility] DEPARTMENT OF | | | [...] | | | | | | | [id number] AND | | | | | | [...] | | + +---------+ + + | [facility] DEPARTMENT OF | | | [...] | | + +---------+ + + | [facility] DEPARTMENT OF | | | [...] | | | | | | | [id number] | | | | | | CHEST: [...] | | | | | | | [id number] | | | | | | CHEST: [...] | | | | | | | [id number], | | | | | | PORTABLE, [...] | | + +---------+ + + | [facility] DEPARTMENT OF | | | [...] | | | | | | | [id number], | | | | | | PORTABLE, [...] and | | | | | | Glenwood Ganzcatheter are | | | | | [...] | | + +---------+ + + | [facility] DEPARTMENT OF | | | [...] | | + +---------+ + + | [facility] DEPARTMENT OF | | | [...] | | | | | | a [place]-Lupe catheter | | | | | | [...] | | | | placement of a [place]-Lupe | | | | | | catheter. CHEST, | | | | | | SINGLE AP PORTABLE: | | | | | | 03-31-93 AT 1000 HOURS | | | | | | FINDINGS: Since the | | | | | | prior study, the | | | | | | [place]-Lupe catheter has | | | | | [...] IMPRESSION: | | | | | | Glenwood-Lupe catheter | | | | | | [...] The | | | | | | Glenwood-Lupe catheter | | | | | | [...] and | | | | | | Glenwood-Lupe catheter | | | | | | [...] endotracheal | | | | | | tube,Glenwood-Lupe catheter | | | | | | [...] | | | | | | a [place]wood-Lupe catheter | | | | | | [...] | | | | placement of a [place]-Lupe | | | | | | catheter. CHEST, | | | | | | SINGLE AP PORTABLE: | | | | | | 03-31-93 AT 1000 HOURS | | | | | | FINDINGS: Since the | | | | | | prior study, the | | | | | | [place]wood-Lupe catheter has | | | | | [...] IMPRESSION: | | | | | | [place]wood-Lupe catheter | | | | | | [...] The | | | | | | [place]wood-Lupe catheter | | | | | | [...] and | | | | | | Glenwood-Lupe catheter | | | | | | [...] endotracheal | | | | | | tube,Glenwood-Lupe catheter | | | | | | [...] | | + +---------+ + + | [facility] DEPARTMENT OF | | | [...] | | | | | | a Glenwood-Lupe catheter | | | | | | [...] | | | | placement of a Glenwood-Lupe | | | | | | catheter. CHEST, | | | | | | SINGLE AP PORTABLE: | | | | | | 03-31-93 AT 1000 HOURS | | | | | | FINDINGS: Since the | | | | | | prior study, the | | | | | | [place]wood-Lupe catheter has | | | | | [...] IMPRESSION: | | | | | | Glenwood-Lupe catheter | | | | | | [...] The | | | | | | Glenwood-Lupe catheter | | | | | | [...] and | | | | | | Glenwood-Lupe catheter | | | | | | [...] endotracheal | | | | | | tube,Glenwood-Lupe catheter | | | | | | [...] | | + +---------+ + + | [facility] DEPARTMENT OF | | | [...] | | | | | | a [place]wood-Lupe catheter | | | | | | [...] | | | | placement of a Glenwood-Lupe | | | | | | catheter. CHEST, | | | | | | SINGLE AP PORTABLE: | | | | | | 03-31-93 AT 1000 HOURS | | | | | | FINDINGS: Since the | | | | | | prior study, the | | | | | | Glenwood-Lupe catheter has | | | | | [...] IMPRESSION: | | | | | | Glenwood-Lupe catheter | | | | | | [...] The | | | | | | Glenwood-Luep catheter | | | | | | [...] and | | | | | | Glenwood-Lupe catheter | | | | | | [...] endotracheal | | | | | | tube,Glenwood-Lupe catheter | | | | | | [...] | | + +---------+ + + | [facility] DEPARTMENT OF | | | [...] | | | | | | a Glenwood-Lupe catheter | | | | | | [...] | | | | placement of a Glenwood-Lupe | | | | | | catheter. CHEST, | | | | | | SINGLE AP PORTABLE: | | | | | | 03-31-93 AT 1000 HOURS | | | | | | FINDINGS: Since the | | | | | | prior study, the | | | | | | Glenwood-Lupe catheter has | | | | | [...] IMPRESSION: | | | | | | Glenwood-Lupe catheter | | | | | | [...] The | | | | | | Glenwood-Lupe catheter | | | | | | [...] and | | | | | | Glenwood-Lupe catheter | | | | | | [...] endotracheal | | | | | | tube,Glenwood-Lupe catheter | | | | | | [...] | | | | | | [facility] | | | | | | [...] | | | | | | a Glenwood-Lupe catheter | | | | | | [...] | | | | placement of a Glenwood-Lupe | | | | | | catheter. CHEST, | | | | | | SINGLE AP PORTABLE: | | | | | | 03-31-93 AT 1000 HOURS | | | | | | FINDINGS: Since the | | | | | | prior study, the | | | | | | Glenwood-Lupe catheter has | | | | | [...] IMPRESSION: | | | | | | Glenwood-Lupe catheter | | | | | | [...] The | | | | | | Glenwood-Lupe catheter | | | | | | [...] and | | | | | | Glenwood-Lupe catheter | | | | | | [...] endotracheal | | | | | | tube,Glenwood-Lupe catheter | | | | | | [...] | | | | | | a Glenwood-Lupe catheter | | | | | | [...] | | | | placement of a Glenwood-Lupe | | | | | | catheter. CHEST, | | | | | | SINGLE AP PORTABLE: | | | | | | 03-31-93 AT 1000 HOURS | | | | | | FINDINGS: Since the | | | | | | prior study, the | | | | | | Glenwood-Lupe catheter has | | | | | [...] IMPRESSION: | | | | | | Glenwood-Lupe catheter | | | | | | [...] The | | | | | | Glenwood-Lupe catheter | | | | | | [...] and | | | | | | Glenwood-Lupe catheter | | | | | | [...] endotracheal | | | | | | tube,Glenwood-Lupe catheter | | | | | | [...]
--- OUTSIDE RECORDS SUMMARY | ~2019-09-27 | XMS | Encounter Summary ---
Demographics + + + | Address | [address] | | | [place] [address] | + + + | Home Phone | | + + + | Preferred Language | Unknown | + + + | Marital Status | Single | + + + | Gnosticist Affiliation | PRO | + + + [...] [place] | | | | | [address] | | + + + + + Care Team Providers + +------+ + | Care Gypsum Roofer Name | Role | Phone | + +------+ + PCP | Unavailable | + +------+ + Encounter Details +--------+ + + + + | Date | Type | Department | Care Team | Description | +--------+ + + + + | 02/26/ | Results | | Other, Faculty | | | 1993 | Only | | [phone] | | +--------+ + + + + [...] | | + +---------+ + + | [facility] DEPARTMENT OF | | | | | RADIOLOGY | | | | + +---------+ + + documented in this encounter Visit Diagnoses Not on filedocumented in this encounter"
--- OUTSIDE RECORDS SUMMARY | ~2019-09-27 | XMS | Encounter Summary ---
Demographics + + + | Address | [address] | | | [place] [address] | + + + | Home Phone [...] [place] | | | | | [address] | | + + + + + Care Team Providers + +------+ + | Care Manager Of Human Resources Name | Role | Phone | + [...] | | | | | [facility], [address] | | | | | | [place], [place] | | | | | | [address] | | | | | | [phone] | | | +--------+ + + + [...] as of this encounter Progress Notes Interface, World Renowned Chef And Restaurant Owner In - 12/25/2006 5:00 AM [facility] DATE: 03/16/98 PLASTIC SURGERY CLINIC [...] in the near future. Galo Arora M.D. English As A Second Language Teacher, Division of Plastic & Reconstructive Surgery AYDEE/alfred documented in this encounter Plan of Treatment Not on filedocumented as of this encounter Visit Diagnoses Not on filedocumented in this encounter"
--- OUTSIDE RECORDS SUMMARY | ~2019-09-27 | XMS | Encounter Summary ---
Demographics + + + | Address | [address] | | | [place] [address] | + + + | Home Phone [...] [place] | | | | | [address] | | + + + + + Care Team Providers + +------+ + | Care Bean Sprout Grower Name | Role | Phone | [...] Note | | 2000 | Visit-Trans | [address] [facility] | [phone] | | | | [address] | [address] | | | | | | [place], [place] | | | | | | [address] | | | +--------+ + + + [...] recommend that he see one of our patient service specialist for further evaluation, and he did appear interested in doing that. 2. Referral to Dr. Willis in Orthopedics. Yuriy Huang M.D. casting house laborer HOSEAL / [id number] / [id number] / [id number] / [id number] C: 01/23/2001 nw documented in this encounter Plan of Treatment Not on filedocumented as of this encounter Visit Diagnoses Not on filedocumented in this encounter"
--- OUTSIDE RECORDS SUMMARY | ~2019-09-27 | XMS | Encounter Summary ---
Demographics + + + | Address | [address] | | | [place] [address] | + + + | Home Phone [...] Team Providers + +------+ + | Care Rural Service Engineer Name | Role | Phone | + +------+ + | Rahul Silva MD | PCP | Unavailable | + +------+ + Encounter Details +--------+ + + + + | Date | Type | Department | Care Team | Description | +--------+ + + + + | 07/27/ | Orders Only | [facility] | Farrukh Acuna MD | Chronic kidney | | 2019 | | NEPHROLOGY [place] | [address] [place] | disease, stage IV | | | | [address] [place] | [address] [place], [place] | (severe) (HCC); | | | | [address] [place], [place] | [address] | Chronic kidney | | | | [address] | | disease, stage IV | | | | [phone] | | (severe) ([facility]); | | | | | | Family [...] | | | | ([facility]); Persistent | | | | | | [...] [place] | | | | | | [address] | | | | | | | | +--------+---------+ + + + | 10/04/ | Office | Nephrology | Farrukh Acuna MD | | | 2019 | Visit | | [address] [facility] | | | | | | [facility] [place] | | | | | | [address] | | | | | | | [...] renal origin | | | | | ([facility]) Persistent | | | | | proteinuria | | + +--------+ + + documented as of this encounter Visit Diagnoses + + | Diagnosis | + + | Chronic kidney disease, stage IV (severe) ([facility]) Chronic kidney disease, Stage IV | | (severe) | + + | Family history of ischemic heart disease and other diseases of the circulatory system | + + | Secondary hyperparathyroidism of renal origin (HCC) Secondary hyperparathyroidism (of | | renal origin) | + + | Persistent proteinuria Proteinuria | + + documented in this encounter"
--- OUTSIDE RECORDS SUMMARY | ~2019-09-27 | XMS | Encounter Summary ---
Demographics + + + | Address | [address] | | | [place] [address] | + + + | Home Phone [...] + + | Author | [facility] | + + + | Organization | [facility] | + + + | Address | Unknown | + + + | Phone | Unavailable | + + + Support + + + + + | Name | Relationship | Address | Phone | + + + + + | Darci Andujar | VALERIE | [place] | | | | | [address] | | + + + + + Care Team Providers + +------+ + | Care Custody Officer Name | Role | Phone | [...] | | | | | | [facility], [address] | | | | | | [place], [place] | | | | | | [address] | | | | | | [phone] | | | +--------+ + + + [...] as of this encounter Progress Notes Interface, Air Surveillance Operator In - 01/22/2007 3:04 AM PST CLINIC DATE: 06/07/97 NEUROLOGY CLINIC HISTORY OF PRESENT ILLNESS: Mr. Andujar is a 56 year-old male who is being evaluated in the Clinic for problems with balance and tremulousness of both upper extremities. He has been referred to this Clinic by Dr. Valles from [place], [place], and has also previously undergone extensive evaluations in the Neurosurgical Clinic and at Vascular Surgery at [facility]. His most recent hospitalization to [facility] was December 28, 1996, when he underwent [...] evaluation in the Pain Management Clinic at [facility] and previous trials of Neurontin and mexiletine hydrochloride apparently appears to have been unsuccessful. Shortly following his December hospitalization at [facility], Mr. Andujar apparently became comatose in January from an accidental overdose of Darvon for which he was admitted to [facility] in [place], [place]. The details pertaining to this hospitalization are currently not available but as per Mr. Andujar, he was in a coma for a six day period and upon recovery noted tremulousness of both upper extremities, worse on his left than on his right. Prior to his hospitalization at [facility] and following his discharge from [facility], he apparently was ambulating with crutches since [...] Mr. Andujar specifically denies impairment of hand seed expert, impaired strength in either upper extremity or [...] currently lives in a [facility] in [place], [place]. 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 He currently smokes one-half vegq-gjo-luk since age 23. Denies current alcohol use [...] procedures for pain relief. Michelle Landon M.D. Playground Supervisor, Neurology GN:fermin C: 06/28/97 cc: RUBIA VALLES MD [address] [facility] [address] Alina Moise M.D. Professor and Gospel Worker, Division of Neurosurgery Robert Carlson M.D. Professor, Vascular Surgery documented in this encounter Plan of Treatment Not on filedocumented as of this encounter Visit Diagnoses Not on filedocumented in this encounter"
--- OUTSIDE RECORDS SUMMARY | ~2019-09-27 | XMS | Encounter Summary ---
Demographics + + + | Address | [address] | | | [place] [address] | + + + | Home Phone [...] Providers + +------+ + | Care Stem Threshing Machine Operator Name | Role | Phone [...] | | | | | Procedures | [address] | | | | | | VAS Arm | Phone: | | | | | | Bilateral | [phone] | | | | | | Mapping For | Fax: | | | | | | Dialysis | [phone] | | +--------+--------+ + + + + Reason for Visit + + + | Reason | Comments | + + + | Referral Consult | | + + + Encounter Details +--------+ + + + + | Date | Type | Department | Care Team | Description | +--------+ + + + + | 07/30/ | Telephone | [facility] | Trisha Conner DNP | Referral Consult | | 2019 | | CARDIOTHORACIC | [address] | | | | | SURGERY [address] | [place] | | | | | [address] [place] | [address] | | | | | [place] | | | | | | [address] | | | | | | [phone] | | | +--------+ + + + [...] [place] | | | | | | [address] | | | | | | | | +--------+---------+ + + + | 10/04/ | Office | Nephrology | Farrukh Acuna MD | | | 2018 | Visit | | [address] [facility] [place] | | | | | | [address] [place] | | | | | | [address] | | | | | | | [...]
--- OUTSIDE RECORDS SUMMARY | ~2019-09-27 | XMS | Encounter Summary ---
Demographics + + + | Address | [address] | | | [place] [address] | + + + | Home Phone [...] [place] | | | | | [address] | | + + + + + Care Team Providers + +------+ + | Care Medical Lead Name | Role | Phone | + +------+ + PCP | Unavailable | + +------+ + Encounter Details +--------+ + + + + | Date | Type | Department | Care Team | Description | +--------+ + + + + | 06/07/ | Transcribed | Allergy Clinic at | [facility] | Transcribed | | 1996 | | [facility] [address] | | | | | | [address] | | | | | | Mailcode: OP34 [address] | | | | | | [address] | | | | | | [place], | | | | | | [place] [address] | | | | | | [phone] | | | +--------+ + + + [...] as of this encounter Progress Notes Interface, Cloth Cutting Machine Operator In - 01/22/2007 3:04 AM PST [address] [address] or June 07, 1997 Pravin VALLES MD [address] [place] [address] [place] [address] RE:Kavon Andujar MR#:[id number] Valles: I saw Kavon Andujar in the Neurology Clinic today and have enclosed a copy of my note. As you know, he endorses worsening of upper extremity tremulousness since his "stroke" related to accidental overdose of Darvon, for which he was admitted to [facility] in January of this year. He [...] over the telephone. Sincerely, Michelle Landon M.D. Web Content Manager, Neurology JINNY/ C: 06/13/97 cc: Alina Moise M.D. Division of Neurosurgery [facility] Robert Carlson M.D. Division of Vascular Surgery [facility] documented in this encounter Plan of Treatment Not on filedocumented as of this encounter Visit Diagnoses Not on filedocumented in this encounter
--- OUTSIDE RECORDS SUMMARY | ~2019-09-27 | XMS | Encounter Summary ---
Demographics + + + | Address | [address] | | | [place] [address] | + + + | Home Phone [...] Team Providers + +------+ + | Care Roustabout Hand Name | Role | Phone | [...] + + | 08/26/ | Office | [facility] | Trisha Conner DNP | CKD (chronic kidney | | 2019 | Visit | VASCULAR SURGERY | [address] | disease) stage 5, | | | | [address] [place] | [place], [place] | GFR less than 15 | | | | [place], [place] | [address] | ml/min (HCC) | | | | [address] | | (Primary Dx) | | | | [phone] | Brian Orosco MD | | | | | | [address] | | | | | | [place], [place] | | | | | | [address] | | | | | | [phone] | | | | | | | [...] Progress Notes Brian Orosco MD - 08/26/2019 1100 PDTFormatting of this [...] CV: No peripheral edema, rate regular SKIN: [place], warm, dry without rash/lesion MS: ROM not [...] [place] | | | | | | [id number] | | | | | | | | +--------+---------+ + + + | 10/04/ | Office | Nephrology | Farrukh Acuna MD | | | 2018 | Visit | | [address] | | | | | | [address] [place] | | | | | | [address] | | | | | | | [...]
--- OUTSIDE RECORDS SUMMARY | ~2019-09-27 | XMS | Encounter Summary ---
Demographics + + + | Address | [address] | | | [place] [address] | + + + | Home Phone [...] Author + + + | Author | [facility] | + + + | Organization | [facility] | + + + | Address | Unknown | + + + | Phone | Unavailable | + + + Support + + + + + | Name | Relationship | Address | Phone | + + + + + | Darci Andujar | VALERIE | [place] | | | | | [address] | | + + + + + Care Team Providers + +------+ + | Care Specialty Sales Representative Name | Role | Phone | + +------+ + PCP | Unavailable | + +------+ + Encounter Details +--------+ + + + + | Date | Type | Department | Care Team | Description | +--------+ + + + + | 06/07/ | Transcribed | Allergy Clinic at | [facility] | Transcribed | | 1996 | | [facility] [address] | | | | | | [address] | | | | | | Mailcode: OP34 [address] | | | | | | [address] | | | | | | [place], | | | | | | [place] [address] | | | | | | [phone] | | | +--------+ + + + [...] as of this encounter Progress Notes Interface, Seo Professional In - 01/22/2007 3:04 AM PST [address] [address] or June 07, 1997 Pravin VALLES MD [address] [place] [address] [place] [address] RE:Kavon Andujar MR#:[id number] Valles: I saw Kavon Andujar in the Neurology Clinic today and have enclosed a copy of my note. As you know, he endorses worsening of upper extremity tremulousness since his "stroke" related to accidental overdose of Darvon, for which he was admitted to [facility] in January of this year. He also [...] over the telephone. Sincerely, Michelle Landon M.D. Safety And Security Manager, Neurology JINNY/ C: 06/13/97 cc: Alina Moise M.D. Division of Neurosurgery [facility] Robert Carlson M.D. Division of Vascular Surgery [facility] documented in this encounter Plan of Treatment Not on filedocumented as of this encounter Visit Diagnoses Not on filedocumented in this encounter
--- OUTSIDE RECORDS SUMMARY | ~2019-09-27 | XMS | Encounter Summary ---
Demographics + + + | Address | [address] | | | [place] [address] | + + + | Home Phone [...] Team Providers + +------+ + | Care Melt Down Furnace Operator Name | Role | Phone | + +------+ + | Rahul Silva MD | PCP | Unavailable | + +------+ + Encounter Details +--------+---------+ + + + | Date | Type | Department | Care Team | Description | +--------+---------+ + + + | 07/26/ | Office | [facility] | Farrukh Acuna MD | Stage 5 chronic | | 2019 | Visit | NEPHROLOGY [place] | [address] [place] | kidney disease not | | | | [address] | [address] [place], [place] | on chronic dialysis | | | | [address] | [address] | (HCC) (Primary Dx); | | | | [place], [place] | | Edema of lower | | | | [address] | | extremity; Tobacco | | | | [phone] | | dependence syndrome; | | | [...] Also: I see no need for acute ROOF FIXER. I see no need to send him [...] 05/31/19 1232 Encounter Date: 05/31/2019 Status: Signed Supply Chain Technician: aFrrukh Acuna MD (Physician) Patient Active Problem List [...] 10/2016 with severe pneumonia, severe ZEKE; needed ROOF FIXER for ~5 weeks b efore renal function recovery mid 12/2016. He was admitted to [facility] for 3 nights in July 2016 [...] 19.5 (A) 05/27/2019 LABPROT 2,445.6 (A) 03/01/2019 [id number] 30 10/08/2018 Assessment: Mr. Andujar is a 78 y.o. male patient with stage IV CKD on a background of diabetes & hypert ension and recent hospitalization for C-diff and hehydration. The most likely pathology here is that of diabetic nephropathy +/- hypertensive nephrosclerosis/arteriolosclerosis. He was hospitalized in 10/2016 with severe pneumonia, severe ZEKE; needed ROOF FIXER for ~5 weeks b efore renal function [...] Also: I see no need for acute ROOF FIXER. I see no need to send him to the ED. I again sent him for a pre-dialysis Options class ALEIX. I sent him for evaluation by the [...] [place] | | | | | | [id number] | | | | | | | | +--------+---------+ + + + | 10/04/ | Office | Nephrology | Farrukh Acuna MD | | | 2018 | Visit | | [facility] | | | | | | [address] [place] | | | | | | [address] | | | | | | | [...]
--- OUTSIDE RECORDS SUMMARY | ~2019-09-27 | XMS | Encounter Summary ---
Demographics + + + | Address | [address] | | | [place] [address] | + + + | Home Phone [...] Team Providers + +------+ + | Care Switchboard Operator Supervisor Name | Role | Phone | [...] | | | | | Procedures | [address] | | | | | | VAS Arm | Phone: | | | | | | Bilateral | [phone] | | | | | | Mapping For | Fax: | | | | | | Dialysis | [phone] | | +--------+--------+ + + + + Reason for Visit + + + | Reason | Comments | + + + | Referral Consult | | + + + Encounter Details +--------+ + + + + | Date | Type | Department | Care Team | Description | +--------+ + + + + | 07/30/ | Telephone | [facility] | Trisha Conner DNP | Referral Consult | | 2019 | | CARDIOTHORACIC | [address] | | | | | SURGERY [address] | [place] | | | | | [address] [place] | [address] | | | | | [place] | | | | | | [address] | | | | | | [phone] | | | +--------+ + + + [...] [place] | | | | | | [address] | | | | | | | | +--------+---------+ + + + | 10/04/ | Office | Nephrology | Farrukh Acuna MD | | | 2018 | Visit | | [address] [facility] [place] | | | | | | [address] [place] | | | | | | [address] | | | | | | | [...]
--- OUTSIDE RECORDS SUMMARY | ~2019-09-27 | XMS | Encounter Summary ---
Demographics + + + | Address | [address] | | | [place] [address] | + + + | Home Phone [...] Providers + +------+ + | Care Detective Bowling Alley Name | Role | Phone | + +------+ + | Rahul Silva MD | PCP | Unavailable | + +------+ + Encounter Details +--------+ + + + + | Date | Type | Department | Care Team | Description | +--------+ + + + + | 07/26/ | Orders Only | [facility] | Farrukh Acuna MD | Chronic kidney | | 2019 | | NEPRHOLOGY [place] | [address] | disease, stage IV | | | | [address] | [address] [place], [place] | (severe) ([facility]); | | | | [address] [place], [place] | [address] | Persistent | | | | [address] | | proteinuria; | | | | [phone] | | Secondary | | | | | | hyperparathyroidism | | | | | | of renal origin | | | | | | ([facility]) | +--------+ + + + + Social [...] [place] | | | | | | [address] | | | | | | | | +--------+---------+ + + + | 10/04/ | Office | Nephrology | Farrukh Acuna MD | | | 2019 | Visit | | [address] [facility] | | | | | | [address] [place], [place] | | | | | | [address] | | | | | | | [...]
--- OUTSIDE RECORDS SUMMARY | ~2019-09-27 | XMS | Encounter Summary ---
Demographics + + + | Address | [address] | | | [place] [address] | + + + | Home Phone [...] Team Providers + +------+ + | Care Mattress Inspector Name | Role | Phone | [...] + + | 07/30/ | Telephone | [facility] | Brian Orosco MD | Establish Care | | 2019 | | VASCULAR SURGERY | [address] | (Referral) | | | | [address] [place] | [place], [place] | | | | | [place], [place] | [address] | | | | | [address] | [phone] | | | | | [phone] | | | +--------+ + + + [...] [place] | | | | | | [address] | | | | | | | | +--------+---------+ + + + | 10/04/ | Office | Nephrology | Farrukh Acuna MD | | | 2019 | Visit | | [address] [facility] | | | | | | [facility] | | | | | | [address] | | | | | | | | +--------+---------+ + + + documented as of this encounter Visit Diagnoses Not on filedocumented in this encounter"
--- OUTSIDE RECORDS SUMMARY | ~2019-09-27 | XMS | Encounter Summary ---
Demographics + + + | Address | [address] | | | [place] [address] | + + + | Home Phone [...] [place] | | | | | [address] | | + + + + + Care Team Providers + +------+ + | Care Phlebotomy Services Representative Name | Role | Phone | + +------+ + PCP | Unavailable | + +------+ + Encounter Details +--------+ + + + + | Date | Type | Department | Care Team | Description | +--------+ + + + + | 09/09/ | Transcribed | Allergy Clinic at | [facility], Other | Transcribed | | 1995 | | [facility] [address] | | | | | | [address] | | | | | | Mailcode: OP34 [address] | | | | | | [address] | | | | | | [place], | | | | | | [place] [address] | | | | | | [phone] | | | +--------+ + + + [...] as of this encounter Progress Notes Interface, Nurse Technician In - 02/14/2007 3:12 AM PDT [address] [address] or September 09, 1996 Nestor VALLES MD [address] [place] [address] RE: PORFIRIO ZAVALA MR#: [id number] Valles: Your patient, Porfirio Zavala, was seen for follow up today in the Neurosurgery Clinic at [facility]. 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 Following our initial evaluation, we recommended [...] Fellow, Neurosurgery Alina Moise M.D. Professor and Aadc Plans Staff Officer, Division of Neurosurgery HECTOR/hiro documented in this encounter Plan of Treatment Not on filedocumented as of this encounter Visit Diagnoses Not on filedocumented in this encounter"
--- OUTSIDE RECORDS SUMMARY | ~2019-09-27 | XMS | Encounter Summary ---
Demographics + + + | Address | [address] | | | [place] [address] | + + + | Home Phone [...] Team Providers + +------+ + | Care Film Producer Name | Role | Phone | [...] | | | | | ([facility]) | | | | | | | [...] + + | 09/10/ | Hospital | [facility] | Brian Orosco MD | CKD (chronic kidney | | 2019 | Encounter | [facility] | [address] | disease) stage 5, | | | | OPERATING ROOM [address] | [place], [place] | GFR less than 15 | | | | [address] | [address] | ml/min ([facility]) | | | | [place], [place] | [phone] | | | | | [address] | | | | | | [phone] | | | +--------+ + + + [...] shunt, please contact your ph ysician at [phone]. Discharge instructions for Diagnostic Imaging sedation patients [...] . For any severe symptoms, please call 601 or report to your nearest Emergency Department. Acetaminophen; Hydrocodone tablets or capsules Brand Names: Anexsia, Lorcet, Lorcet HD, Lorcet Plus, Lortab, [place], Verdrocet, Vicodin, Vi codin ES, Vicodin HP, [...] information carefully each time. Talk to your senior site manager regarding the use of this medicine in children. Special care may be needed. What side effects may I notice from receiving this medicine? Side effects that you should report to your doctor or health primary care pediatrician as soon as p ossible: allergic reactions [...] attention (report to your doctor or health primary care pediatrician if they continue or are bothersome): constipation [...] to an official disposal site. Contact the [facility] at [phone] or your [facility] to find a site. If [...] this medicine? Tell your doctor or health primary care pediatrician if your pain does not go away, [...] pharmacist, or health care provider. Copyright 2019 [employer] Arteriovenous (AV) Fistula for Dialysis An AV [...] cuts, scrapes, or blows. Date Last Reviewed: 12/01/201619990973-4740 [address] [place] [address], [place] [address]. All righ ts reserved. This information is [...] | | | | | ([facility]), Secondary | | | | | | | hyperparathyroidism | | | | | | | ([facility]) | | | | | | + [...] Progress Notes Leana Pimentel RN - 09/10/2019 3255 PDTDischarge instructions (per AVS) explained and discussed with patient and family (patient's daughter-sona). Discussed precautions post-fis vitaly creation, precautions post-anesthesia, signs and symptoms of surgical site incision, he samuel bleeding, incision care, dressing care, and signs and symptoms of blood clots and blood clots prevention. Prescription for [place]air[place] given and side effects were explained. Patient stat es that he also takes oxycodone at home; patient and his family were educated about taking o xycodone or [place] only and not both. OTC Tylenol intake [...] [place] | | | | | | [id number] | | | | | | | | +--------+---------+ + + + | 10/04/ | Office | Nephrology | Farrukh Acuna MD | | | 2018 | Visit | | [address] [facility] [place] | | | | | | [address] [place] | | | | | | [address] | | | | | | | [...] POC | performed at [facility];[address] | | LABORATORY | | | | [address];[place], [place] | | | | | | [address] | | | | + + + + + + + + | Specimen | + + | | + + + + + + + | Performing | Address | City/State/Zipcode | Phone Number | | Organization | | | | + + + + + | [facility] | [address] | [place] [address] | [phone] | + + + + + POC Glucose (09/10/2019 12:13 PDT) + + + + + + | Component | Value | Ref Range | Performed | Pathologist | | | | | At | Signature | + + + + + + | Glucose, | 150 (H)Comment: Testing | 65 - 99 mg/dL | [facility] | | | POC | performed at [facility];[address] | | LABORATORY | | | | [address];[place] | | | | | | [address] | | | | + + + + + + + + | Specimen | + + | | + + + + + + + | Performing | Address | City/State/Zipcode | Phone Number | | Organization | | | | + + + + + | [facility] | [address] | [place] [address] | [phone] | + + + + + documented [...] less than 15 ml/min ([facility]) Chronic kidney | | disease, Stage V [...] One week or | | | longer, oxtcuv-izy-xseye use of | | | at least [...]
--- OUTSIDE RECORDS SUMMARY | ~2019-09-27 | XMS | Encounter Summary ---
Demographics + + + | Address | [address] | | | [place] [address] | + + + | Home Phone [...] Team Providers + +------+ + | Care Charter Boat Captain Name | Role | Phone | [...] + + | 09/03/ | Telephone | [facility] | Alfred, | Lab Results | | 2019 | | [facility] | [facility] | | | | | [address] [place] | Sales Program Manager | | | | | [address] [place], [place] | | | | | | [address] | | | | | | [phone] | | | +--------+ + + + [...] [place] | | | | | | [address] | | | | | | | | +--------+---------+ + + + | 10/04/ | Office | Nephrology | Farrukh Acuna MD | | | 2019 | Visit | | [address] [place] | | | | | | [address] [place] | | | | | | [address] | | | | | | | | +--------+---------+ + + + documented as of this encounter Visit Diagnoses Not on filedocumented in this encounter"
--- OUTSIDE RECORDS SUMMARY | ~2019-09-27 | XMS | Encounter Summary ---
Demographics + + + | Address | [address] | | | [place] [address] | + + + | Home Phone [...] [place] | | | | | [address] | | + + + + + Care Team Providers + +------+ + | Care Offal Separator Name | Role | Phone | + [...] Clinic | | | | | | [facility], [address] | | | | | | [place], [place] | | | | | | [address] | | | | | | [phone] | | | +--------+ + + + [...] as of this encounter Progress Notes Interface, Bakery Demonstrator In - 01/06/2007 5:03 AM PST CLINIC DATE: 11/10/97 [facility] - FOLLOW-UP VISIT [...] of narcotic medication misuse. Nelson Melara M.D. Lining Feller, Anesthesiology [facility] MANDY/camryn cc: Robert Carlson M.D. Professor, Vascular Surgery documented in this encounter Plan of Treatment Not on filedocumented as of this encounter Visit Diagnoses Not on filedocumented in this encounter"
--- OUTSIDE RECORDS SUMMARY | ~2019-09-27 | XMS | Encounter Summary ---
Demographics + + + | Address | [address] | | | [place] [address] | + + + | Home Phone [...] Team Providers + +------+ + | Care Grab Driver Name | Role | Phone | [...] | | | | disease not | [place], | [place], [place] | | | | | on chronic | [place] [address] | [address] | | | | | dialysis | Phone: | Phone: | | | | | ([facility]) | [phone] | [phone] | | | | | Hypertension | Fax: | Fax: | | | | | , | [phone] | [phone] | | | | | unspecified | | | | | | | type | | | + + + + + + + Encounter Details +--------+ + + + + | Date | Type | Department | Care Team | Description | +--------+ + + + + | 07/28/ | Orders Only | [facility] | Farrukh Acuna MD | Iron deficiency | | 2019 | | NEPHROLOGY [place] | [address] | (Primary Dx); Anemia | | | | [address] [place] | [address] [place], [place] | of chronic kidney | | | | [address] [place], [place] | [address] | failure, stage 5 | | | | [address] | | ([facility]); Stage 5 | | | | [phone] | | chronic kidney | | | | | | disease not on | | | | | | chronic dialysis | | | | | | ([facility]); Secondary | | | | | | hyperparathyroidism | | | | | | ([facility]); Hypertension, | | | | [...] [place] | | | | | | [address] | | | | | | | | +--------+---------+ + + + | 10/04/ | Office | Nephrology | Farrukh Acuna MD | | | 2019 | Visit | | [address] [facility] [address] | | | | | | [address] [place], [place] | | | | | | [address] | | | | | | | [...] | until 07/28/2020 | | | | ([facility]) Hypertension, | | | | | unspecified [...] chronic dialysis | | | | | ([facility]) Hypertension, | | | | | unspecified type | | + +--------+ + + | Parathyroid Hormone, Intact | Routin | Stage 5 chronic | Expected: | | | e | kidney disease not | 09/27/2019, Expires: | | | | on chronic dialysis | 07/28/2020 | | | | (HCC) Secondary | | | | | hyperparathyroidism | | | | | ([facility]) Hypertension, | | | | | unspecified type | | + +--------+ + + + +--------+ + + | Name | Priori | Associated Diagnoses | Order Schedule | | | ty | | | + +--------+ + + | Ambulatory Referral to [facility] | Routin | Stage 5 chronic | [...]
--- OUTSIDE RECORDS SUMMARY | ~2019-09-27 | XMS | Encounter Summary ---
Demographics + + + | Address | [address] | | | [place] [address] | + + + | Home Phone [...] [place] | | | | | [address] | | + + + + + Care Team Providers + +------+ + | Care Manufacturing Engineering Technologist Name | Role | Phone | + +------+ + PCP | Unavailable | + +------+ + Encounter Details +--------+ + + + + | Date | Type | Department | Care Team | Description | +--------+ + + + + | 01/31/ | Transcribed | Allergy Clinic at | [place], Other | Transcribed | | 1997 | | [facility] [address] | | | | | | [address] | | | | | | Mailcode: OP34 [address] | | | | | | [address] | | | | | | [place], | | | | | | [place] [address] | | | | | | [phone] | | | +--------+ + + + [...] as of this encounter Progress Notes Interface, Purification Operator In - 12/28/2006 5:10 AM PST [address] [address] or January 31, 1998 GRIFFIN SMILEY MD [address] [facility] [address] [place] [address] RE:PORFIRIO ZAVALA MR#:[id number] Smiley: As [...] in the future. Sincerely, Nelson Melara M.D. Process Owner, Anesthesiology [facility] MANDY/geovanni documented in this encounter Plan of Treatment Not on filedocumented as of this encounter Visit Diagnoses Not on filedocumented in this encounter"
--- OUTSIDE RECORDS SUMMARY | ~2019-09-27 | XMS | Encounter Summary ---
Demographics + + + | Address | [address] | | | [place] [address] | + + + | Home Phone [...] Providers + +------+ + | Care Loss Control Technician Name | Role | Phone | [...] + + | 08/18/ | Refill | [facility] | Sandy Capellan | Medication Refill | | 2018 | | NEPRHOLOGY PAIGE Valadez RN | | | | | [address] | | | | | | [address] [place] | | | | | | [address] | | | | | | [phone] | | | +--------+--------+ + + + [...] [place] | | | | | | [id number] | | | | | | | | +--------+---------+ + + + | 10/04/ | Office | Nephrology | Farrukh Acuna MD | | | 2019 | Visit | | [address] [facility] | | | | | | [address] [place], [place] | | | | | | [address] | | | | | | | [...]
--- OUTSIDE RECORDS SUMMARY | ~2019-09-27 | XMS | Encounter Summary ---
Demographics + + + | Address | [address] | | | [place] [address] | + + + | Home Phone [...] [place] | | | | | [address] | | + + + + + Care Team Providers + +------+ + | Care Wire Brusher Name | Role | Phone | + +------+ + PCP | Unavailable | + +------+ + Encounter Details +--------+ + + + + | Date | Type | Department | Care Team | Description | +--------+ + + + + | 12/28/ | Procedure - | Digestive Health | Record, Operation | Operative Report | | 1996 | | [place] at [facility] [address] | | | | | Transcribed | Ruben Linares | | | | | | Mailcode: [place] | | | | | | [facility] and | | | | | | Healing, Building 2 | | | | | | [facility] [place] | | | | | | [address] | | | | | | [phone] | | | +--------+ + + + [...] + + | 12/28/1996 12:[address] [facility] | | [facility] | | [address], [place] [address] | | [facility] | | | | OPERATION RECORD | | | | Med Rec No.: [id number] Date: 12/28/96 | | | | Name: Mehran Andujarald Arturo | | | | | | ATTENDING SURGEON: Robert Carlson M.D. | | Professor, | | Vascular Surgery | | | | JACK MACHINE OPERATOR(S): Nick Noriega M.D. | | Learning Disabled Teacher, General Surgery | | | | POSTOPERATIVE DIAGNOSIS(ES): Left stump osteophyte. | | | | OPERATION(S) PERFORMED: Revision of left vnvpw-xcf-cjgg amputation | | and excision of stump osteophyte. | | | | SPECIMEN(S) REMOVED: 1. Swab of pseudocapsule for culture. | | 2. Osteophyte to Pathology. | | | | ANESTHESIA: General endotracheal anesthesia. | | | | INDICATIONS: The patient is a 56-year-old white male who | | is status post left bqsgd-iyp-eivp | | amputation three years ago secondary | | to embolus. He has developed pain over the stump. A recent CT scan showed | | an osteophyte growing on the end of the stump. | | | | PROCEDURE: The patient was taken to the Operating Room. | | General endotracheal anesthesia was | | performed by Anesthesia. The | | left emvdg-kuf-nerl amputation stump was sterilely prepped and draped [...] | | Nick Noriega M.D. | | Learning Disabled Teacher, General Surgery | | Robert Carlson M.D. | | Professor, | | Vascular Surgery | | | | DOMINIC/jc | | | | A | | | | cc: | | | + + documented in this encounter Visit Diagnoses Not on filedocumented in this encounter"
--- OUTSIDE RECORDS SUMMARY | ~2019-09-27 | XMS | Encounter Summary ---
Demographics + + + | Address | [address] | | | [place] [address] | + + + | Home Phone [...] Team Providers + +------+ + | Care Newspaper Editor Managing Name | Role | Phone | + [...] + + | 09/24/ | Telephone | [facility] | Farrukh Acuna MD | Lab Results | | 2019 | | NEPHROLOGY [place] | [address] [place] | | | | | [address] [place] | [address] [place], [place] | | | | | [address] [place], [place] | [address] | | | | | [address] | | | | | | [phone] | | | +--------+ + + + [...] [place] | | | | | | [address] | | | | | | | | +--------+---------+ + + + | 10/04/ | Office | Nephrology | Farrukh Acuna MD | | | 2019 | Visit | | [address] [facility] | | | | | | [address] [place], [place] | | | | | | [address] | | | | | | | | +--------+---------+ + + + documented as of this encounter Visit Diagnoses Not on filedocumented in this encounter"
--- OUTSIDE RECORDS SUMMARY | ~2019-09-27 | XMS | Encounter Summary ---
Demographics + + + | Address | [address] | | | [place] [address] | + + + | Home Phone [...] [place] | | | | | [address] | | + + + + + Care Team Providers + +------+ + | Care Environment Artist Name | Role | Phone | [...] [id number] | | | | | | [place], [place] | | | | | | [address] | | | | | | [phone] | | | +--------+ + + + [...] + + + + | [facility] | [address] | [place] [address] | | | PATHOLOGY | [address] [...] + + + + | [facility] | [address] | [place] [address] | | | PATHOLOGY | [address] [...] + + + + | [facility] | [address] | [place] [address] | | | PATHOLOGY | [address] [...] + + + + | [facility] | [address] | [place] [address] | | | PATHOLOGY | [address] | | | + + + + + documented in this encounter Visit Diagnoses Not on filedocumented in this encounter
--- OUTSIDE RECORDS SUMMARY | ~2019-09-27 | XMS | Encounter Summary ---
Demographics + + + | Address | [address] | | | [place] [address] | + + + | Home Phone [...] [place] | | | | | [address] | | + + + + + [...] Operative Report | | 1997 | | [place] at [facility] [address] | | | | | Transcribed | Ruben Linares | | | | | | Mailcode: [place] | | | | | | [facility] and | | | | | | Healing, Building 2 | | | | | | [facility] [place] | | | | | | [address] | | | | | | [phone] | | | +--------+ + + + [...] + + | 04/06/1998 12:00 AM PDT [place] | | [facility] | | [address], [place] [address] | | [facility] | | | | OPERATION RECORD | | | | Med Rec No.: [id number] Date: 04/06/98 | | | | Name: Con Kavon Morris | | | | | | ATTENDING SURGEON: | | Galo Arora M.D. | | Director Music, | | Division of Plastic & | | Reconstructive Surgery | | HALL MANAGER(S): | | Barry Fofana M.D. | | [...] | | Galo Arora M.D. | | Director Music, | | Division of Plastic & | | Reconstructive Surgery | | WOJCIECH/pita | | | | P | | C: 05/12/98 lv | | cc: | | | + + documented in this encounter Visit Diagnoses Not on filedocumented in this encounter"
--- OUTSIDE RECORDS SUMMARY | ~2019-09-27 | XMS | Clinical Summary ---
Demographics + + + | Address | [address] | | | [place] [address] | + + + | Home Phone [...] Providers + +------+ + | Care Lead Coater Name | Role | Phone | [...] | | | | | ([facility]), Secondary | | | | | | | | hyperparathyroidism | | | | | | | | ([facility]) | | | | | | | [...] automatically from request for surgery | | [id number] | + + + + + | [...] & Plan: Controlled on current | | [id number] yr old male with COPD, current heavy [...] | 08/24/19) | | | | | Residential Real Estate Appraiser | | +--------+ + + + + | 09/13/ | Telephone | Vascular Surgery | Terri Aguilar, | Follow-up | 2018 | | | Snorkelling Instructor | | +--------+ + + + + [...] | | | | ml/min ([facility]) | +--------+ + + + + | [...] Abdi | | | | | | Residential Real Estate Appraiser | | +--------+ + + + + [...] | | | | ml/min ([facility]) | | | | | | (Primary [...] | | | | | ([facility]); Stage 5 | | | | | | chronic kidney | | | | | | disease not on | | | | | | chronic dialysis | | | | | | ([facility]); Secondary | | | | | | hyperparathyroidism | | | | | | ([facility]); Hypertension, | | | | | | unspecified type | +--------+ + + + + | 07/27/ | Orders Only | Nephrology | Farrukh Acuna MD | Chronic kidney | | 2018 | | | | disease, stage IV | | | | | | (severe) ([facility]); | | | | | | Chronic kidney | | | | | | disease, stage IV | | | | | | (severe) ([facility]); | | | | | | Family [...] | | | | | ([facility]); Persistent | | | | | | proteinuria | +--------+ + + + + | 07/26/ | Office | Nephrology | Farrukh Acuna MD | Stage 5 chronic | | 2019 | Visit | | | kidney disease not | | | | | | on chronic dialysis | | | | | | ([facility]) (Primary Dx); | | | | | [...] | | | | | stage 5 ([facility]); Iron | | | | | | deficiency | +--------+ + + + + | 07/26/ | Orders Only | Nephrology | Farrukh Acuna MD | Chronic kidney | | 2019 | | | | disease, stage IV | | | | | | (severe) ([facility]); | | | | | | Persistent | | | | | | proteinuria; | | | | | | Secondary | | | | | | hyperparathyroidism | | | | | | of renal origin | | | | | | ([facility]) | +--------+ + + + + | 07/21/ | Documentati | Nephrology | Alfred | Results (07/19/19) | | 2019 | on | | Charlie Abdi | | | | | | Residential Real Estate Appraiser | | +--------+ + + + + [...] | | | | | ([facility]); Persistent | | | | | | [...] [place] | | | | | | [address] | | | | | | | | +--------+---------+ + + + | 10/04/ | Office | Nephrology | Farrukh Acuna MD | | | 2018 | Visit | | [address] | | | | | | [address] [place] | | | | | | [address] | | | | | | | [...] | | | POC | performed at [facility];[address] | | LABORATORY | | | | [address];[place], [place] | | | | | | [address] | | | | + + + + + + + + | Specimen | + + | | + + + + + + + | Performing | Address | City/State/Zipcode | Phone Number | | Organization | | | | + + + + + | [facility] | [address] | [place] [address] | [phone] | + + + + + CBC [...] | | | Absolute | performed at [facility], [address] | [address] | LABORATORY | | | | [address], | | | | | | [place] [address] | | | | + + + + + + + + | Specimen | + + | Blood | + + + + + + + | Performing | Address | City/State/Zipcode | Phone Number | | Organization | | | | + + + + + | [facility] | [address] | [place] [address] | [phone] | + + + + + Basic Metabolic Panel (09/07/2019 13:58 PDT)Only the most recent of 3 results within the ti ia period is included. + + + + [...] | | | | | | MDRD IDNE traceable | | | | | | equation.Testing | | | | | | performed at [facility], [address] | | | | | | [facility], | | | | | | [place] [address] | | | | + + + + + + + + | Specimen | + + | Blood | + + + + + + + | Performing | Address | City/State/Zipcode | Phone Number | | Organization | | | | + + + + + | [facility] | [address] | [place] [address] | [phone] | + + + + + ECG [...] +--------+ +---------+--------+ | MEDICARE | MEDICA | [id number] | 07/01/20 | [phone] | | Medica | | | RE | | 05-Pre | 5 | | re | | | PART A | | sent | | | | | | AND B | | | | | | + +--------+ +--------+ +---------+--------+ | [employer] | MODA | [id number] | 07/04/20 | [phone] | | Medica | | MEDICAID HMO | HEALTH | | 19-Pre | 1 | | id | | | MDCD | | sent | | | | | | [place]MO [place] | | | | | | + +--------+ +--------+ +---------+--------+ | MEDICAID [place] | MEDICA | [id number] | | [phone] | | Medica | [...] ch[place] | | | 1 (Home) | [address] | + +--------+ +--------+ + + | Kavon Andujar | Person | Self | [birth year] | | [address] | | Arturo | al/Fam | | 1940 | [phone] | [place] | | | chula | | | 1 (Home) | [address] | + +--------+ +--------+ + + Advance Directives Patient has advance care planning documents, and code status on file. For more information, please contact:[facility] [place] [facility] [place] [address] + + + + + | Code [...]
--- OUTSIDE RECORDS SUMMARY | ~2019-09-27 | XMS | Encounter Summary ---
Demographics + + + | Address | [address] | | | [place] [address] | + + + | Home Phone [...] [place] | | | | | [address] | | + + + + + Care Team Providers + +------+ + | Care Kiss Machine Operator Name | Role | Phone [...] | | | | | | [place], | | | | | | [place] [address] | | | | | | [phone] | | | +--------+ + + + [...] as of this encounter Discharge Summaries Interface, Poultry Farm Worker In - 12/22/2006 3:12 AM PST [address] [address] [facility] MEDICAL SUMMARY OF HOSPITALIZATION Med Rec No.: [id number] Admission Date: 04/06/98 Name: Kavon Andujar Discharge Date: 04/08/98 STAFF PHYSICIAN: Galo Arora M.D. Pst Manager, Division of Plastic & Reconstructive Surgery [...] M.D. Resident, Plastic Surgery Galo Arora M.D. Pst Manager, Division of Plastic & Reconstructive Surgery QIANA/charo P cc: GRIFFIN ASHER MD [address] [place] [address] documented in this encounter Plan of Treatment Not on filedocumented as of this encounter Visit Diagnoses Not on filedocumented in this encounter"
--- OUTSIDE RECORDS SUMMARY | ~2019-09-27 | XMS | Encounter Summary ---
Demographics + + + | Address | [address] | | | [place] [address] | + + + | Home Phone [...] [place] | | | | | [address] | | + + + + + Care Team Providers + +------+ + | Care Card Lacer Jacquard Name | Role | Phone | + +------+ + PCP | Unavailable | + +------+ + Encounter Details +--------+ + + + + | Date | Type | Department | Care Team | Description | +--------+ + + + + | 06/07/ | Transcribed | Allergy Clinic at | [facility] | Transcribed | | 1996 | | [facility] [address] | | | | | | [address] | | | | | | Mailcode: [address] | | | | | | [address] | | | | | | [place], | | | | | | [place] [address] | | | | | | [phone] | | | +--------+ + + + [...] as of this encounter Progress Notes Interface, Special Education Educational Assistant In - 01/22/2007 3:04 AM PST [address] [address] or June 07, 1997 Pravin VALLES MD [address] [place] [address] [place] [address] RE:Kavon Andujar MR#:[id number] Valles: I saw Kavon Andujar in the Neurology Clinic today and have enclosed a copy of my note. 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 He [...] over the telephone. Sincerely, Michelle Landon M.D. Commissioning Agent, Neurology JINNY/ C: 06/13/97 cc: Alina Moise M.D. Division of Neurosurgery [facility] Robert Carlson M.D. Division of Vascular Surgery [facility] documented in this encounter Plan of Treatment Not on filedocumented as of this encounter Visit Diagnoses Not on filedocumented in this encounter
--- OUTSIDE RECORDS SUMMARY | ~2019-09-27 | XMS | Encounter Summary ---
Demographics + + + | Address | [address] | | | [place] [address] | + + + | Home Phone [...] Team Providers + +------+ + | Care Farm Equipment Operator Name | Role | Phone [...] | 08/13/ | Telephone | [facility] | Farrukh Acuna MD | Other (lab result) | | 2019 | | NEPRHOLOGY [place] | [address] | | | | | [address] | [address] [place], [place] | | | | | [address] [place], [place] | [address] | | | | | [address] | | | | | | [phone] | | | +--------+ + + + [...] [place] | | | | | | [address] | | | | | | | | +--------+---------+ + + + | 10/04/ | Office | Nephrology | Farrukh Acuna MD | | | 2019 | Visit | | [address] [facility] | | | | | | [address] [place], [place] | | | | | | [address] | | | | | | | | +--------+---------+ + + + documented as of this encounter Visit Diagnoses Not on filedocumented in this encounter"
--- OUTSIDE RECORDS SUMMARY | ~2019-09-27 | XMS | Encounter Summary ---
Demographics + + + | Address | [address] | | | [place] [address] | + + + | Home Phone [...] Team Providers + +------+ + | Care Flatwork Ironer Name | Role | Phone | + [...] + + | 09/01/ | Telephone | [facility] | Farrukh Acuna MD | Other | | 2019 | | NEPRHOLOGY [place] | [address] | | | | | [address] | [address] [place], [place] | | | | | [address] [place], [place] | [address] | | | | | [address] | | | | | | [phone] | | | +--------+ + + + [...] [place] | | | | | | [address] | | | | | | | | +--------+---------+ + + + | 10/04/ | Office | Nephrology | Farrukh Acuna MD | | | 2018 | Visit | | [address] [facility] | | | | | | [address] [facility] | | | | | | [address] | | | | | | | | +--------+---------+ + + + documented as of this encounter Visit Diagnoses Not on filedocumented in this encounter"
--- OUTSIDE RECORDS SUMMARY | ~2019-09-27 | XMS | Encounter Summary ---
Demographics + + + | Address | [address] | | | [place] [address] | + + + | Home Phone [...] [place] | | | | | [address] | | + + + + + Care Team Providers + +------+ + | Care Pullman Conductor Name | Role | Phone | + +------+ + PCP | Unavailable | + +------+ + Encounter Details +--------+ + + + + | Date | Type | Department | Care Team | Description | +--------+ + + + + | 01/31/ | Transcribed | Allergy Clinic at | [place], Other | Transcribed | | 1997 | | [facility] [address] | | | | | | [address] | | | | | | Mailcode: [address] | | | | | | [address] | | | | | | [place], | | | | | | [place] [address] | | | | | | [phone] | | | +--------+ + + + [...] as of this encounter Progress Notes Interface, Stopper Maker Helper In - 12/28/2006 5:10 AM PST [address] [address] or January 31, 1998 GRIFFIN SMILEY MD [address] [facility] [place] [address] RE:PORFIRIO ZAVALA MR#:[id number] Smiley: As [...] to hear in our conversation that the [employer] does not cover Ultram in [...] in the future. Sincerely, Nelson Melara M.D. Showroom Sales Assistant, Anesthesiology [facility] MANDY/geovanni documented in this encounter Plan of Treatment Not on filedocumented as of this encounter Visit Diagnoses Not on filedocumented in this encounter"
--- OUTSIDE RECORDS SUMMARY | ~2019-09-27 | XMS | Encounter Summary ---
Demographics + + + | Address | [address] | | | [place] [address] | + + + | Home Phone [...] Team Providers + +------+ + | Care Upholstery Bundler Name | Role | Phone | + [...] + | 09/01/ | Telephone | [facility] | Farrukh Acuna MD | Other | | 2019 | | NEPRHOLOGY [place] | [address] | | | | | [address] | [address] [place], [place] | | | | | 101 [place], [place] | [address] | | | | | [address] | | | | | | [phone] | | | +--------+ + + + [...] [place] | | | | | | [address] | | | | | | | | +--------+---------+ + + + | 10/04/ | Office | Nephrology | Farrukh Acuna MD | | | 2018 | Visit | | [address] [facility] | | | | | | [address] [facility] | | | | | | [address] | | | | | | | | +--------+---------+ + + + documented as of this encounter Visit Diagnoses Not on filedocumented in this encounter"
--- OUTSIDE RECORDS SUMMARY | ~2019-09-27 | XMS | Encounter Summary ---
Demographics + + + | Address | [address] | | | [place] [address] | + + + | Home Phone [...] Team Providers + +------+ + | Care Die Attacher Name | Role | Phone | [...] + + | 07/21/ | Documentati | [facility] | Simon, | Results (07/19/19) | | 2019 | on | NEPHROLOGY [place] | [facility] | | | | | [address] | [employer] | | | | | [address] [facility] [place] | | | | | | [address] | | | | | | [phone] | | | +--------+ + + + [...] [place] | | | | | | [id number] | | | | | | | | +--------+---------+ + + + | 10/04/ | Office | Nephrology | Farrukh Acuna MD | | | 2019 | Visit | | [address] [facility] | | | | | | [address] [place] | | | | | | [id number] | | | | | | | [...]
--- OUTSIDE RECORDS SUMMARY | ~2019-09-27 | XMS | Encounter Summary ---
Demographics + + + | Address | [address] | | | [place] [address] | + + + | Home Phone [...] [place] | | | | | [address] | | + + + + + Care Team Providers + +------+ + | Care Sales Engineer Engineered Products Name | Role | Phone | + +------+ + PCP | Unavailable | + +------+ + Encounter Details +--------+ + + + + | Date | Type | Department | Care Team | Description | +--------+ + + + + | 12/28/ | Procedure - | Digestive Health | Record, Operation | Operative Report | | 1996 | | [place] [facility] [address] | | | | | Transcribed | Ruben Linares | | | | | | Mailcode: [place] | | | | | | [facility] | | | | | | Healing, Building [address] | | | | | | [facility] [place] | | | | | | [address] | | | | | | [phone] | | | +--------+ + + + [...] | + + | 12/28/1996 12:00 AM [facility] | | [facility] | | [address], [place] [address] | | [facility] | | | | OPERATION RECORD | | | | Med Rec No.: [id number] Date: 12/28/96 | | | | Name: Mehran Andujarald Arturo | | | | | | ATTENDING SURGEON: Robert Carlson M.D. | | Professor, | | Vascular Surgery | | | | CAMPAIGN DEVELOPER(S): Nick Noriega M.D. | | Card Grader, General Surgery | | | | POSTOPERATIVE DIAGNOSIS(ES): Left stump osteophyte. | | | | OPERATION(S) PERFORMED: Revision of left khzlr-yky-lxsq amputation | | and excision of stump osteophyte. | | | | SPECIMEN(S) REMOVED: 1. Swab of pseudocapsule for culture. | | 2. Osteophyte to Pathology. | | | | ANESTHESIA: General endotracheal anesthesia. | | | | INDICATIONS: The patient is a 56-year-old white male who | | is status post left wfzhl-naz-hkbm | | amputation three years ago secondary | | to embolus. He has developed pain over the stump. A recent CT scan showed | | an osteophyte growing on the end of the stump. | | | | PROCEDURE: The patient was taken to the Operating Room. | | General endotracheal anesthesia was | | performed by Anesthesia. The | | left gqcwq-mzf-onqk amputation stump was sterilely prepped and draped [...] | | Nick Noriega M.D. | | Card Grader, General Surgery | | Robert Carlson M.D. | | Professor, | | Vascular Surgery | | | | DOMINIC/jc | | | | A | | | | cc: | | | + + documented in this encounter Visit Diagnoses Not on filedocumented in this encounter"
--- OUTSIDE RECORDS SUMMARY | ~2019-09-27 | XMS | Encounter Summary ---
Demographics + + + | Address | [address] | | | [place] [address] | + + + | Home Phone [...] [place] | | | | | [address] | | + + + + + Care Team Providers + +------+ + | Care Drafter Assistant Name | Role | Phone | [...] [address] | | | | | | [place], [place] | | | | | | [address] | | | | | | [phone] | | | +--------+ + + + [...] as of this encounter Progress Notes Interface, Security Monitor In - 01/06/2007 5:03 AM PST CLINIC DATE: 11/10/97 [facility] - FOLLOW-UP VISIT [...] the patient's history of narcotic medication misuse. eNlson Melara M.D. Team Assistant, Anesthesiology [facility] MANDY/camryn cc: Robert Carlson M.D. Professor, Vascular Surgery documented in this encounter Plan of Treatment Not on filedocumented as of this encounter Visit Diagnoses Not on filedocumented in this encounter"
--- OUTSIDE RECORDS SUMMARY | ~2019-09-27 | XMS | Encounter Summary ---
Demographics + + + | Address | [address] | | | [place] [address] | + + + | Home Phone [...] [place] | | | | | [address] | | + + + + + Care Team Providers + +------+ + | Care Procedures Nurse Name | Role | Phone | [...] Clinic | | | | | | [facility], [address] | | | | | | [place], [place] | | | | | | [address] | | | | | | [phone] | | | +--------+ + + + [...] of this encounter Progress Notes Interface, Construction Administrator In - 01/22/2007 3:04 AM PST CLINIC DATE: 06/07/97 NEUROLOGY CLINIC HISTORY OF PRESENT ILLNESS: Mr. Andujar is a 56 year-old male who is being evaluated in the Clinic for problems with balance and tremulousness of both upper extremities. He has been referred to this Clinic by Dr. Valles from [place], [place], and has also previously undergone extensive evaluations in the Neurosurgical Clinic and at Vascular Surgery at [facility]. His most recent hospitalization to [facility] was December 28, 1996, when he underwent [...] evaluation in the Pain Management Clinic at [facility] and previous trials of Neurontin and mexiletine hydrochloride apparently appears to have been unsuccessful. Shortly following his December hospitalization at [facility], Mr. Andujar apparently became comatose in January from an accidental overdose of Darvon for which he was admitted to [facility] in [place], [place]. The details pertaining to this hospitalization are currently not available but as per Mr. Andujar, he was in a coma for a six day period and upon recovery noted tremulousness of both upper extremities, worse on his left than on his right. Prior to his hospitalization at [facility] and following his discharge from [facility], he apparently was ambulating with crutches since the stump pain precluded the use of his left lower extremity prosthesis. Since his discharge from [facility], however, he has been experiencing increasing problems with balance and apparently has fallen on several occasions. The head CT-scan that was done at [facility], dated February 07, 1997, reveals a low attenuation area in the left anterior basal ganglia felt to represent a small lacunar infarct, with no other significant abnormality. Mr. Andujar states that during the course of his hospitalization at [facility] he apparently fell on three occasions sustaining occipital head trauma but did not undergo subsequent brain imaging studies. His stay at [facility] lasted two weeks. By his report, [...] Mr. 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 He currently smokes one-half nrbx-bhp-zbb since age 23. Denies current alcohol use [...] in turn led to his hospitalization at [facility] in January 1997 for coma at [...] procedures for pain relief. Michelle Landon M.D. Taffy Puller, Neurology GN:fermin C: 06/28/97 cc: RUBIA VALLES MD [address] [facility] [address] Alina Moise M.D. Professor and Public Information Specialist, Division of Neurosurgery Robert Carlson M.D. Professor, Vascular Surgery documented in this encounter Plan of Treatment Not on filedocumented as of this encounter Visit Diagnoses Not on filedocumented in this encounter"
--- OUTSIDE RECORDS SUMMARY | ~2019-09-27 | XMS | Encounter Summary ---
Demographics + + + | Address | [address] | | | [place] [address] | + + + | Home Phone [...] [place] | | | | | [address] | | + + + + + Care Team Providers + +------+ + | Care Asbestos Brake Lining Finisher Name | Role | Phone | [...] | | | | | | [place], | | | | | | [place] [address] | | | | | | [phone] | | | +--------+ + + + [...] as of this encounter Discharge Summaries Interface, Automobile Damage Field Appraiser In - 12/22/2006 3:12 AM PST [address] [address] [facility] MEDICAL SUMMARY OF HOSPITALIZATION Med Rec No.: [id number] Admission Date: 04/06/98 Name: Kavon Andujar Discharge Date: 04/08/98 STAFF PHYSICIAN: Galo Arora M.D. Pedicab Driver, Division of Plastic & Reconstructive Surgery PRINCIPAL [...] M.D. Resident, Plastic Surgery Galo Arora M.D. Pedicab Driver, Division of Plastic & Reconstructive Surgery QIANA/charo P cc: GRIFFIN ASHER MD [address] [place] [address] documented in this encounter Plan of Treatment Not on filedocumented as of this encounter Visit Diagnoses Not on filedocumented in this encounter"
--- OUTSIDE RECORDS SUMMARY | ~2019-09-27 | XMS | Encounter Summary ---
Demographics + + + | Address | [address] | | | [place] [address] | + + + | Home Phone [...] Team Providers + +------+ + | Care Scow Captain Name | Role | Phone | + +------+ + | Rahul Silva MD | PCP | Unavailable | + +------+ + Encounter Details +--------+ + + + + | Date | Type | Department | Care Team | Description | +--------+ + + + + | 09/10/ | Ancillary | [facility] | Brian Orosco MD | Marianocelfrancesco (OTHER) | | 2019 | Procedure | [facility] | [address] | | | | | OPERATING RO[address] | [place], [place] | | | | | [address] | [address] | | | | | [place], [place] | [phone] | | | | | [address] | | | | | | [phone] | | | +--------+ + + + [...] SOW | | | | | | [id number] | | | | | | | | +--------+---------+ + + + | 10/04/ | Office | Nephrology | Farrukh Acuna MD | | | 2018 | Visit | | [address] [facility] [address] | | | | | | [address] | | | | | | [address] | | | | | | | | +--------+---------+ + + + documented as of this encounter Visit Diagnoses Not on filedocumented in this encounter"
--- OUTSIDE RECORDS SUMMARY | ~2019-09-27 | XMS | Encounter Summary ---
Demographics + + + | Address | [address] | | | [place] [address] | + + + | Home Phone [...] [place] | | | | | [address] | | + + + + + Care Team Providers + +------+ + | Care Salvage Supervisor Name | Role | Phone | [...] | | | amputation | [place], | [place], [place] | | | | | stump, | [place] [address] | [address] | | | | | unspecified | Phone: | Phone: | | | | | | [phone] | [phone] | | | | | | Fax: | Fax: | | | | | | [phone] | [phone] | +--------+--------+ + + + + Encounter Details +--------+---------+ + + + | Date | Type | Department | Care Team | Description | +--------+---------+ + + + | 04/10/ | Office | [facility] Comprehensive | Seven Reilly MD | Low back pain; | | 2009 | Visit | Pain Center at | [address] | Herniated lumbar | | | | [facility] | [place], [place] | intervertebral disc; | | | | [address] | [address] | Stump pain (HCC) | | | | Mailcode: [facility] | [phone] | | | | | [facility] | | | | | | and Healing, | | | | | | Building | | | | | | Floor [place], [place] | | | | | | [address] | | | | | | [phone] | | | +--------+---------+ + + + [...] the trainee's note. Seven Reilly MD, DABA, [facility] P DTMariano Martinez MD - 04/10/2010 12:30 PM PDT Comprehensive [facility] Office Visit 04/10/2010 Kavon Andujar; ; : 1940 Mr. Andujar was referred for pain management consultation by RAHUL COYNE MD [address] [place] [address], [place] [address] Reason for visit: Chief Complaint Patient presents [...] pain. He has been referred to the [facility] for consultation regarding [...] that the most effective treatments include: medications. DEPARTMENT OPERATIONS MANAGER Brief Pain Inventory: (ten= worst possible pain [...] above. As part of today's visit the [facility] Pain Center new patient questionnaire [...] you expect from your visits to the [facility] ? Don't know [...] and summary of old medical records (source: [employer]), as summarized in the body of the [...] at [facility] [place]. Mariano Martinez MD Pain Fellow [facility] [place] [facility] documented in this encounter Plan of [...]
--- OUTSIDE RECORDS SUMMARY | ~2019-09-27 | XMS | Clinical Summary ---
Demographics + + + | Address | [address] | | | [place] [address] | + + + | Home Phone | | + + + | Preferred Language | Unknown | + + + | Marital Status | | + + + | Christian Affiliation | 1077 | + + + | Race | Unknown | + + + | Ethnic Group | Unknown | + + + Author + + + | Author | [employer] (Historical as of | | | 07-17-19) | + + + | Organization | [facility] (Historical as of | | | 07-17-19) [...] Team Providers + +------+ + | Care Sewage Treatment Plant Operator Name | Role | Phone [...] | | | | | 4 (severe) ([facility]), | | | | | | [...] Last Assessment & Plan: Controlled on current [id number] yr | | old male with COPD, [...] +------+-------+ + | MEDICARE | MEDICA | [id number] | | | [address] | | | RE | | | | [place] [address] | | | IP-OP | | | | | + +--------+ +------+-------+ + | MEDICAID | [employer] | [id number] | | | [address] | | | N | | | | [place], [place] | | | [place] | | | | [address] | | | MOBILE TESTER | | | | | + +--------+ [...] | Self | [birth year] | Home: | [address] [place] [address] | | | al/Fam | | 1940 | [phone] | [place] | | | [place] | | | [address] | [address] | + +--------+ +--------+ + +
--- OUTSIDE RECORDS SUMMARY | ~2019-09-27 | XMS | Encounter Summary ---
Demographics + + + | Address | [address] | | | [place] [address] | + + + | Home Phone [...] [place] | | | | | [address] | | + + + + + Care Team Providers + +------+ + | Care Pathology Supervisor Name | Role | Phone | + +------+ + PCP | Unavailable | + +------+ + Encounter Details +--------+ + + + + | Date | Type | Department | Care Team | Description | +--------+ + + + + | 03/31/ | Results | Pulmonary Function | Jarod Gupta MD | | | 1992 | Only | Lab at [facility] [address] | [address] | | | | | [address] | [place], | | | | | Mailcode: [id number] | [place] [address] | | | | | Emelyn [address]alvo | [phone] | | | | | [place], [place] | | | | | | [address] | | | | | | [phone] | | | +--------+ + + + [...] | | | | | | a Hamilton-Lupe catheter | | | | | | [...] | | | | placement of a Hamilton-Lupe | | | | | | catheter. CHEST, | | | | | | SINGLE AP PORTABLE: | | | | | | 03-31-93 AT 1000 HOURS | | | | | | FINDINGS: Since the | | | | | | prior study, the | | | | | | Hamilton-Lupe catheter has | | | | | [...] IMPRESSION: | | | | | | Hamilton-Lupe catheter | | | | | | [...] The | | | | | | Hamilton-Lupe catheter | | | | | | [...] and | | | | | | Hamilton-Lupe catheter | | | | | | [...] endotracheal | | | | | | tube,Hamilton-Lupe catheter | | | | | | [...] | + + + + + | [facility] | [address] | [place] [address] | | | PATHOLOGY | [address] | | | + + + + + documented in this encounter Visit Diagnoses Not on filedocumented in this encounter"
--- OUTSIDE RECORDS SUMMARY | ~2019-09-27 | XMS | Clinical Summary ---
Demographics + + + | Address | [address] | | | [place] [address] | + + + | Home Phone | | + + + | Preferred Language | Unknown | + + + | Marital Status | | + + + | Druze Affiliation | 1077 | + + + | Race | Unknown | + + + | Ethnic Group | Unknown | + + + Author + + + | Author | [employer] [facility] [employer] (Historical as of | | | 07-17-19) | + + + | Organization | [facility] [employer] (Historical as of | | | 07-17-19) [...] Providers + +------+ + | Care Sweep Press Operator Name | Role | Phone [...] | | | | | 4 (severe) ([facility]), | | | | | | | [...] Last Assessment & Plan: Controlled on current [id number] yr | | old male with COPD, [...] +------+-------+ + | MEDICARE | MEDICA | [id number] | | | [address] | | | RE | | | | [place] [address] | | | IP-OP | | | | | + +--------+ +------+-------+ + | MEDICAID | [employer] | [id number] | | | [address] | | | N | | | | [place], [place] | | | [place] | | | | [address] | | | SAILMAKER | | | | | + +--------+ [...] | Self | [birth year] | Home: | [address] [place] [address] | | | al/Fam | | 1940 | [phone] | [place] | | | [place] | | | [address] | [address] | + +--------+ +--------+ + +
--- OUTSIDE RECORDS SUMMARY | ~2019-09-27 | XMS | Encounter Summary ---
Demographics + + + | Address | [address] | | | [place] [address] | + + + | Home Phone [...] [place] | | | | | [address] | | + + + + + Care Team Providers + +------+ + | Care Fingernail Former Name | Role | Phone | [...] | | | | | | [place], | | | | | | [place] [address] | | | | | | [phone] | | | +--------+ + + + [...] as of this encounter Discharge Summaries Interface, Pharmacy Picking Technician In - 12/22/2006 3:12 AM PST [address] [address] [facility] MEDICAL SUMMARY OF HOSPITALIZATION Med Rec No.: [id number] Admission Date: 04/06/98 Name: Kavon Andujar Discharge Date: 04/08/98 STAFF PHYSICIAN: Galo Arora M.D. Drivers License Examiner, Division of Plastic & Reconstructive Surgery PRINCIPAL [...] M.D. Resident, Plastic Surgery Galo Arora M.D. Drivers License Examiner, Division of Plastic & Reconstructive Surgery QIANA/charo P cc: GRIFFIN ASHER MD [address] [place] [place] [address] documented in this encounter Plan of Treatment Not on filedocumented as of this encounter Visit Diagnoses Not on filedocumented in this encounter"
--- OUTSIDE RECORDS SUMMARY | ~2019-09-27 | XMS | Clinical Summary ---
Demographics + + + | Address | [address] | | | [place] [address] | + + + | Home Phone [...] Author + + + | Author | [facility] | + + + | Organization | [facility] | + + + | Address | Unknown | + + + | Phone | Unavailable | + + + Support + + + + + | Name | Relationship | Address | Phone | + + + + + | Darci Andujar | VALERIE | [place] | | | | | [address] | | + + + + + Care Team Providers + +------+ + | Care Linker Up Name | Role | Phone | + +------+ + | Rahul Silva MD | PCP | | + +------+ + Source Comments [place] is fully live on both [facility] Ambulatory and [facility] InPatient.[facility] Allergies No Known [...]
--- OUTSIDE RECORDS SUMMARY | ~2019-09-27 | XMS | Encounter Summary ---
Demographics + + + | Address | [address] | | | [place] [address] | + + + | Home Phone [...] [place] | | | | | [address] | | + + + + + Care Team Providers + +------+ + | Care Gas Inspector Name | Role | Phone | [...] | | | amputation | [place], | [place], [place] | | | | | stump, | [place] [address] | [address] | | | | | unspecified | Phone: | Phone: | | | | | | [phone] | [phone] | | | | | | Fax: | Fax: | | | | | | [phone] | [phone] | +--------+--------+ + + + + Encounter Details +--------+---------+ + + + | Date | Type | Department | Care Team | Description | +--------+---------+ + + + | 04/10/ | Office | [facility] Comprehensive | Seven Reilly MD | Low back pain; | | 2009 | Visit | Pain Center at | [address] | Herniated lumbar | | | | [facility] | [place], [place] | intervertebral disc; | | | | [address] | [address] | Stump pain (HCC) | | | | Mailcode: [facility] | [phone] | | | | | [facility] | | | | | | and Healing, | | | | | | Building | | | | | | Floor [place], [place] | | | | | | [address] | | | | | | [phone] | | | +--------+---------+ + + + [...] [facility] [place] [facility] P DTMariano Martinez MD - 04/10/2010 12:30 PM PDT Comprehensive Pain Center Office Visit 04/10/2010 Kavon Andujar; ; : 1940 Mr. Andujar was referred for pain management consultation by RAHUL COYNE MD [address] [place] [address], [place] [address] Reason for visit: Chief Complaint Patient presents [...] pain. He has been referred to the [facility] for consultation regarding this [...] that the most effective treatments include: medications. EDI PROGRAMMER ANALYST Brief Pain Inventory: (ten= worst possible pain [...] above. As part of today's visit the [facility] Pain Center new patient questionnaire [...] you expect from your visits to the [facility] ? Don't know [...] and summary of old medical records (source: [employer]), as summarized in the body of the [...] generic medication. Follow up: none scheduled at [facility] [place]. Mariano Martinez MD Pain Fellow [facility] [place] [facility] documented in this encounter Plan of [...]
--- OUTSIDE RECORDS SUMMARY | ~2019-09-27 | XMS | Clinical Summary ---
Demographics + + + | Address | [address] | | | [place] [address] | + + + | Home Phone [...] +------+ + | Care Associate Professor Of Sociology Name | Role | Phone | + [...] | | | | | ([facility]), Secondary | | | | [...] automatically from request for surgery | | [id number] | + + + + + | [...] & Plan: Controlled on current | | omrbcuvidw52 yr old male with COPD, current heavy [...] | 08/24/19) | | | | | Aircraft Time Clerk | | +--------+ + + + + | 09/13/ | Telephone | Vascular Surgery | Terri Aguilar, | Follow-up | 2018 | | | Reduction Furnace Operator | | +--------+ + + + + [...] | | | | | | ml/min ([facility]) | +--------+ + + [...] Abdi | | | | | | Aircraft Time Clerk | | +--------+ + + + + [...] | | | | | | ml/min ([facility]) | | | | [...] 5 | | | | | | ([facility]); Stage 5 | | | | | | chronic kidney | | | | | | disease not on | | | | | | chronic dialysis | | | | | | ([facility]); Secondary | | | | | | hyperparathyroidism | | | | | | ([facility]); Hypertension, | | | | | | unspecified type | +--------+ + + + + | 07/27/ | Orders Only | Nephrology | Farrukh Acuna MD | Chronic kidney | | 2018 | | | | disease, stage IV | | | | | | (severe) ([facility]); | | | | | | Chronic kidney | | | | | | disease, stage IV | | | | | | (severe) ([facility]); | | | | | | Family [...] origin | | | | | | ([facility]); Persistent | | | | | | proteinuria | +--------+ + + + + | 07/26/ | Office | Nephrology | Farrukh Acuna MD | Stage 5 chronic | | 2019 | Visit | | | kidney disease not | | | | | | on chronic dialysis | | | | | | ([facility]) (Primary Dx); | | | | | [...] | | | | | stage 5 ([facility]); Iron | | | | | | deficiency | +--------+ + + + + | 07/26/ | Orders Only | Nephrology | Farrukh Acuna MD | Chronic kidney | | 2019 | | | | disease, stage IV | | | | | | (severe) ([facility]); | | | | | | Persistent | | | | | | proteinuria; | | | | | | Secondary | | | | | | hyperparathyroidism | | | | | | of renal origin | | | | | | ([facility]) | +--------+ + + + + | 07/21/ | Documentati | Nephrology | Alfred | Results (07/19/19) | | 2019 | on | | Charlie Abdi | | | | | | Aircraft Time Clerk | | +--------+ + + + + [...] | | | | ([facility]); Persistent | | | | [...] [place] | | | | | | [address] | | | | | | | | +--------+---------+ + + + | 10/04/ | Office | Nephrology | Farrukh Acuna MD | | | 2018 | Visit | | [address] | | | | | | [address] [place] | | | | | | [address] | | | | | | | [...] | | | POC | performed at [facility];[address] | | LABORATORY | | | | [address];[place], [place] | | | | | | [address] | | | | + + + + + + + + | Specimen | + + | | + + + + + + + | Performing | Address | City/State/Zipcode | Phone Number | | Organization | | | | + + + + + | [facility] | [address] | [place] [address] | [phone] | + + + + + CBC [...] | performed at [facility], [address] | [address] | LABORATORY | | | | [place], | | | | | | [place] [address] | | | | + + + + + + + + | Specimen | + + | Blood | + + + + + + + | Performing | Address | City/State/Zipcode | Phone Number | | Organization | | | | + + + + + | [facility] | [address] | [place] [address] | [phone] | + + + + + Basic Metabolic Panel (09/07/2019 13:58 PDT)Only the most recent of 3 results within the ti id period is included. + + + + [...] | | | | | | MDRD IDHI traceable | | | | | | equation.Testing | | | | | | performed at [facility], [address] | | | | | | [facility], | | | | | | [place] [address] | | | | + + + + + + + + | Specimen | + + | Blood | + + + + + + + | Performing | Address | City/State/Zipcode | Phone Number | | Organization | | | | + + + + + | [facility] | [address] | [place] [address] | [phone] | + + + + + ECG [...] +--------+ +---------+--------+ | MEDICARE | MEDICA | [id number] | 07/01/20 | [phone] | | Medica | | | RE | | 05-Pre | 5 | | re | | | PART A | | sent | | | | | | AND B | | | | | | + +--------+ +--------+ +---------+--------+ | [employer] | MODA | [id number] | 07/04/20 | [phone] | | Medica | | MEDICAID HMO | HEALTH | | 19-Pre | 1 | | id | | | MDCD | | sent | | | | | | [place] | | | | | | + +--------+ +--------+ +---------+--------+ | MEDICAID [place] | MEDICA | [id number] | | [phone] | | Medica | [...] chula | | | 1 (Home) | [address] | + +--------+ +--------+ + + | Kavon Andujar | Person | Self | [birth year] | | [address] | | Arturo | al/Fam | | 1940 | [phone] | [place] | | | chula | | | 1 (Home) | [address] | + +--------+ +--------+ + + Advance Directives Patient has advance care planning documents, and code status on file. For more information, please contact:[facility] [place] [address] + + + + + | Code [...]
--- OUTSIDE RECORDS SUMMARY | ~2019-09-27 | XMS | Encounter Summary ---
Demographics + + + | Address | [address] | | | [place] [address] | + + + | Home Phone [...] Team Providers + +------+ + | Care Huller Operator Name | Role | Phone | + +------+ + | Rahul Silva MD | PCP | Unavailable | + +------+ + Encounter Details +--------+ + + + + | Date | Type | Department | Care Team | Description | +--------+ + + + + | 09/10/ | Ancillary | [facility] | Brian Orosco MD | Marianocelfrancesco (OTHER) | | 2019 | Procedure | [facility] | [address] | | | | | [address]PER[address] | [address] [place], [place] | | | | | [address] | [address] | | | | | [place], [place] | [phone] | | | | | [address] | | | | | | [phone] | | | +--------+ + + + [...] [place] | | | | | | [id number] | | | | | | | | +--------+---------+ + + + | 10/04/ | Office | Nephrology | Farrukh Acuna MD | | | 2018 | Visit | | [address] [facility] [address] | | | | | | [address] [place] | | | | | | [address] | | | | | | | | +--------+---------+ + + + documented as of this encounter Visit Diagnoses Not on filedocumented in this encounter"
--- OUTSIDE RECORDS SUMMARY | ~2019-09-27 | XMS | Encounter Summary ---
Demographics + + + | Address | [address] | | | [place] [address] | + + + | Home Phone [...] Team Providers + +------+ + | Care Geriatric Nurse Assistant Name | Role | Phone | [...] + + | 09/03/ | Telephone | [facility] | Alfred, | Lab Results | | 2019 | | [facility] | [facility] | | | | | [address] | Metal Fabrication Supervisor | | | | | [address] [place], [place] | | | | | | [address] | | | | | | [phone] | | | +--------+ + + + [...] [place] | | | | | | [address] | | | | | | | | +--------+---------+ + + + | 10/04/ | Office | Nephrology | Farrukh Acuna MD | | | 2019 | Visit | | [address] [place] | | | | | | [address] [place] | | | | | | [address] | | | | | | | | +--------+---------+ + + + documented as of this encounter Visit Diagnoses Not on filedocumented in this encounter"
--- OUTSIDE RECORDS SUMMARY | ~2019-09-27 | XMS | Encounter Summary ---
Demographics + + + | Address | [address] | | | [place] [address] | + + + | Home Phone [...] [place] | | | | | [address] | | + + + + + Care Team Providers + +------+ + | Care Cellar Hand Name | Role | Phone | + +------+ + PCP | Unavailable | + +------+ + Encounter Details +--------+ + + + + | Date | Type | Department | Care Team | Description | +--------+ + + + + | 03/30/ | Results | | Other, Faculty | | | 1992 | Only | | [phone] | | +--------+ + + + + [...] | | + +---------+ + + | [facility] DEPARTMENT OF | | | [...] | | + +---------+ + + | [facility] DEPARTMENT OF | | | [...] | | | | | | | [id number] AND | | | | | | [...] | | + +---------+ + + | [facility] DEPARTMENT OF | | | [...] | | + +---------+ + + | [facility] DEPARTMENT OF | | | [...] | | | | | | | [id number] | | | | | | CHEST: [...] | | | | | | | [id number] | | | | | | CHEST: [...] | | | | | | | [id number], | | | | | | PORTABLE, [...] | | + +---------+ + + | [facility] DEPARTMENT OF | | | [...] | | | | | | | [id number], | | | | | | PORTABLE, [...] and | | | | | | Orla Ganzcatheter are | | | | | [...] | | + +---------+ + + | [facility] DEPARTMENT OF | | | [...] | | + +---------+ + + | [facility] DEPARTMENT OF | | | [...] | | | | | | a Orla-Lupe catheter | | | | | | [...] | | | | placement of a Orla-Lupe | | | | | | catheter. CHEST, | | | | | | SINGLE AP PORTABLE: | | | | | | 03-31-93 AT 1000 HOURS | | | | | | FINDINGS: Since the | | | | | | prior study, the | | | | | | Orla-Lupe catheter has | | | | | [...] IMPRESSION: | | | | | | Orla-Lupe catheter | | | | | | [...] The | | | | | | Orla-Lupe catheter | | | | | | [...] and | | | | | | Orla-Lupe catheter | | | | | | [...] endotracheal | | | | | | tube,Orla-Lupe catheter | | | | | | [...] | | | | | | a Orla-Lupe catheter | | | | | | [...] | | | | placement of a Orla-Lupe | | | | | | catheter. CHEST, | | | | | | SINGLE AP PORTABLE: | | | | | | 03-31-93 AT 1000 HOURS | | | | | | FINDINGS: Since the | | | | | | prior study, the | | | | | | Orla-Lupe catheter has | | | | | [...] IMPRESSION: | | | | | | Orla-Lupe catheter | | | | | | [...] The | | | | | | Orla-Lupe catheter | | | | | | [...] and | | | | | | Orla-Lupe catheter | | | | | | [...] endotracheal | | | | | | tube,Orla-Lupe catheter | | | | | | [...] | | + +---------+ + + | [facility] DEPARTMENT OF | | | [...] | | | | | | a Orla-Lupe catheter | | | | | | [...] | | | | placement of a Orla-Lupe | | | | | | catheter. CHEST, | | | | | | SINGLE AP PORTABLE: | | | | | | 03-31-93 AT 1000 HOURS | | | | | | FINDINGS: Since the | | | | | | prior study, the | | | | | | Orla-Lupe catheter has | | | | | [...] IMPRESSION: | | | | | | Orla-Lupe catheter | | | | | | [...] The | | | | | | Orla-Lupe catheter | | | | | | [...] and | | | | | | Orla-Lupe catheter | | | | | | [...] endotracheal | | | | | | tube,Orla-Lupe catheter | | | | | | [...] | | + +---------+ + + | [facility] DEPARTMENT OF | | | [...] | | | | | | a Orla-Lupe catheter | | | | | | [...] | | | | placement of a Orla-Lupe | | | | | | catheter. CHEST, | | | | | | SINGLE AP PORTABLE: | | | | | | 03-31-93 AT 1000 HOURS | | | | | | FINDINGS: Since the | | | | | | prior study, the | | | | | | Orla-Lupe catheter has | | | | | [...] IMPRESSION: | | | | | | Orla-Lupe catheter | | | | | | [...] The | | | | | | Orla-Lupe catheter | | | | | | [...] and | | | | | | Orla-Lupe catheter | | | | | | [...] endotracheal | | | | | | tube,Orla-Lupe catheter | | | | | | [...] | | + +---------+ + + | [facility] DEPARTMENT OF | | | [...] | | | | | | a Orla-Lupe catheter | | | | | | [...] | | | | placement of a Orla-Lupe | | | | | | catheter. CHEST, | | | | | | SINGLE AP PORTABLE: | | | | | | 03-31-93 AT 1000 HOURS | | | | | | FINDINGS: Since the | | | | | | prior study, the | | | | | | Orla-Lupe catheter has | | | | | [...] IMPRESSION: | | | | | | Orla-Lupe catheter | | | | | | [...] The | | | | | | Orla-Lupe catheter | | | | | | [...] and | | | | | | Orla-Lupe catheter | | | | | | [...] endotracheal | | | | | | tube,Orla-Lupe catheter | | | | | | [...] | | | | | [facility] | | | | | | [...] | | | | | | a Orla-Lupe catheter | | | | | | [...] | | | | placement of a Orla-Lupe | | | | | | catheter. CHEST, | | | | | | SINGLE AP PORTABLE: | | | | | | 03-31-93 AT 1000 HOURS | | | | | | FINDINGS: Since the | | | | | | prior study, the | | | | | | Orla-Lupe catheter has | | | | | [...] IMPRESSION: | | | | | | Orla-Lupe catheter | | | | | | [...] The | | | | | | Orla-Lupe catheter | | | | | | [...] and | | | | | | Orla-Lupe catheter | | | | | | [...] endotracheal | | | | | | tube,Orla-Lupe catheter | | | | | | [...] | | | | | | a Orla-Lupe catheter | | | | | | [...] | | | | placement of a Orla-Lupe | | | | | | catheter. CHEST, | | | | | | SINGLE AP PORTABLE: | | | | | | 03-31-93 AT 1000 HOURS | | | | | | FINDINGS: Since the | | | | | | prior study, the | | | | | | Orla-Lupe catheter has | | | | | [...] IMPRESSION: | | | | | | Orla-Lupe catheter | | | | | | [...] The | | | | | | Orla-Lupe catheter | | | | | | [...] and | | | | | | Orla-Lupe catheter | | | | | | [...] endotracheal | | | | | | tube,Orla-Lupe catheter | | | | | | [...]
--- OUTSIDE RECORDS SUMMARY | ~2019-09-27 | XMS | Encounter Summary ---
Demographics + + + | Address | [address] | | | [place] [address] | + + + | Home Phone [...] Team Providers + +------+ + | Care Patternator Name | Role | Phone | + +------+ + | Rahul Silva MD | PCP | Unavailable | + +------+ + Encounter Details +--------+ + + + + | Date | Type | Department | Care Team | Description | +--------+ + + + + | 07/26/ | Orders Only | [facility] | Farrukh Acuna MD | Chronic kidney | | 2019 | | NEPRHOLOGY [place] | [address] | disease, stage IV | | | | [address] | [address] [place], [place] | (severe) (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) | +--------+ + + + + [...] [place] | | | | | | [address] | | | | | | | | +--------+---------+ + + + | 10/04/ | Office | Nephrology | Farrukh Acuna MD | | | 2019 | Visit | | [address] [facility] | | | | | | [address] [place], [place] | | | | | | [address] | | | | | | | [...]
--- OUTSIDE RECORDS SUMMARY | ~2019-09-27 | XMS | Encounter Summary ---
Demographics + + + | Address | [address] | | | [place] [address] | + + + | Home Phone [...] [place] | | | | | [address] | | + + + + + Care Team Providers + +------+ + | Care Eligibility Examiner Name | Role | Phone | [...] [id number] | | | | | | [place], [place] | | | | | | [address] | | | | | | [phone] | | | +--------+ + + + [...] + + + | [facility] | [address] | [place] [address] | | | PATHOLOGY | [address] [...] + + + | [facility] | [address] | [place] [address] | | | PATHOLOGY | [address] [...] + + + | [facility] | [address] | [place] [address] | | | PATHOLOGY | [address] [...] + + + | [facility] | [address] | [place] [address] | | | PATHOLOGY | [address] | | | + + + + + documented in this encounter Visit Diagnoses Not on filedocumented in this encounter
--- OUTSIDE RECORDS SUMMARY | ~2019-09-27 | XMS | Encounter Summary ---
Demographics + + + | Address | [address] | | | [place] [address] | + + + | Home Phone [...] [place] | | | | | [address] | | + + + + + Care Team Providers + +------+ + | Care Whitewasher Name | Role | Phone | + +------+ + PCP | Unavailable | + +------+ + Encounter Details +--------+ + + + + | Date | Type | Department | Care Team | Description | +--------+ + + + + | 09/09/ | Transcribed | Allergy Clinic at | Oliva, Other | Transcribed | | 1995 | | [facility] [address] | | | | | | [address] | | | | | | Mailcode: [address] | | | | | | [address] [place] | | | | | | [place], | | | | | | [place] [address] | | | | | | [phone] | | | +--------+ + + + [...] of this encounter Progress Notes Interface, Associate Professor Of English In - 02/14/2007 3:12 AM PDT [address] [address] or September 09, 1996 Nestor VALLES MD [address] [place] [id number] RE: PORFIRIO ZAVALA MR#: [id number] Valles: Your patient, Porfirio Zavala, was seen for follow up today in the Neurosurgery Clinic at [facility]. 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 Following our initial evaluation, we recommended [...] Fellow, Neurosurgery Alina Moise M.D. Professor and Plastic Die Maker Apprentice, Division of Neurosurgery HECTOR/hiro documented in this encounter Plan of Treatment Not on filedocumented as of this encounter Visit Diagnoses Not on filedocumented in this encounter"
--- OUTSIDE RECORDS SUMMARY | ~2019-09-27 | XMS | Encounter Summary ---
Demographics + + + | Address | [address] | | | [place] [address] | + + + | Home Phone [...] Author + + + | Author | [facility] | + + + | Organization | [facility] | + + + | Address | Unknown | + + + | Phone | Unavailable | + + + Support + + + + + | Name | Relationship | Address | Phone | + + + + + | Darci Andujar | [address]ER[address] | [place] | | | | | [address] | | + + + + + Care Team Providers + +------+ + | Care Shore Hand Dredge Or Barge Name | Role | Phone | + [...] [address] | | | | | | [place], [place] | | | | | | [address] | | | +--------+ + + + [...] as of this encounter Progress Notes Interface, Healthcare Insurance Sales Agent In - 03/27/2007 3:12 AM PDT CLINIC [...] an abnormal AC-BE, he was referred to [facility] for colonoscopy. MEDICATIONS: 1. Vicodin. 2. Various [...] Dr. Valles who is his physician in [place], [place]. He has made me aware that [...] Gastroenterology SHANEL/stephon cc: ARIA WATKINS [facility] [place] documented in this encounter Plan of Treatment Not on filedocumented as of this encounter Visit Diagnoses Not on filedocumented in this encounter"
--- OUTSIDE RECORDS SUMMARY | ~2019-09-27 | XMS | Encounter Summary ---
Demographics + + + | Address | [address] | | | [place] [address] | + + + | Home Phone [...] Providers + +------+ + | Care Press Operator Automatic Name | Role | Phone | + +------+ + | Rahul Silva MD | PCP | Unavailable | + +------+ + Encounter Details +--------+ + + + + | Date | Type | Department | Care Team | Description | +--------+ + + + + | 07/27/ | Orders Only | [facility] | Farrukh Acuna MD | Chronic kidney | | 2019 | | NEPHROLOGY [place] | [address] [place] | disease, stage IV | | | | [address] [place] | [address] [place], [place] | (severe) (HCC); | | | | [address] [place], [place] | [address] | Chronic kidney | | | | [address] | | disease, stage IV | | | | [phone] | | (severe) ([facility]); | | | | | | [...] origin | | | | | | ([facility]); Persistent | | | | | [...] [place] | | | | | | [address] | | | | | | | | +--------+---------+ + + + | 10/04/ | Office | Nephrology | Farrukh Acuna MD | | | 2019 | Visit | | [address] [facility] | | | | | | [address] [facility] [place] | | | | | | [address] | | | | | | | [...] renal origin | | | | | ([facility]) Persistent | | | | | proteinuria | | + +--------+ + + documented as of this encounter Visit Diagnoses + + | Diagnosis | + + | Chronic kidney disease, stage IV (severe) ([facility]) Chronic kidney disease, Stage IV | [...]
--- OUTSIDE RECORDS SUMMARY | ~2019-09-27 | XMS | Encounter Summary ---
Demographics + + + | Address | [address] | | | [place] [address] | + + + | Home Phone [...] [place] | | | | | [address] | | + + + + + Care Team Providers + +------+ + | Care Digital Account Director Name | Role | Phone | + +------+ + PCP | Unavailable | + +------+ + Encounter Details +--------+ + + + + | Date | Type | Department | Care Team | Description | +--------+ + + + + | 12/22/ | Results | | Other, Faculty | | | 1997 | Only | | [phone] | | +--------+ + + + + [...] | | | | | | 12/22/96 [id number] hours. | | | | | | [...] + +---------+ + + | [facility] DEPARTMENT OF | | | [...] | | | | | | | [id number] | | | | | | SPINE, [...] + +---------+ + + | [facility] DEPARTMENT OF | | | | | RADIOLOGY | | | | + +---------+ + + documented in this encounter Visit Diagnoses Not on filedocumented in this encounter"
--- OUTSIDE RECORDS SUMMARY | ~2019-09-27 | XMS | Encounter Summary ---
Demographics + + + | Address | [address] | | | [place] [address] | + + + | Home Phone [...] [place] | | | | | [address] | | + + + + + Care Team Providers + +------+ + | Care Last Model Maker Name | Role | Phone | [...] [address] | | | | | | [place] | | | | | | [address] | | | +--------+ + + + [...] as of this encounter Discharge Summaries Interface, Management Trainee Program Stores In - 04/01/2007 5:08 AM PDT [address] [address] [facility] MEDICAL SUMMARY OF HOSPITALIZATION Med [...] cc: RUBIA KNAPP MD [address] [address] documented in this encounter Plan of Treatment Not on filedocumented as of this encounter Visit Diagnoses Not on filedocumented in this encounter"
--- OUTSIDE RECORDS SUMMARY | ~2019-09-27 | XMS | Encounter Summary ---
Demographics + + + | Address | [address] | | | [place] [address] | + + + | Home Phone | | + + + | Preferred Language | Unknown | + + + | Marital Status | | + + + | Lutheran Affiliation | 1077 | + + + | Race | Unknown | + + + | Ethnic Group | Unknown | + + + Author + + + | Author | [employer] [place] [email or web address] (Historical as of | | | 07-17-19) | + + + | Organization | [facility] [email or web address] (Historical as of | | | 07-17-19) [...] Team Providers + +------+ + | Care Compressor Operator Portable Name | Role | Phone [...] | | | | | [place] [address] | | | | | | [phone] | | | +--------+ + + + [...]
--- OUTSIDE RECORDS SUMMARY | ~2019-09-27 | XMS | Encounter Summary ---
Demographics + + + | Address | [address] | | | [place] [address] | + + + | Home Phone [...] [place] | | | | | [address] | | + + + + + Care Team Providers + +------+ + | Care Horse Race Starter Name | Role | Phone | + +------+ + PCP | Unavailable | + +------+ + Encounter Details +--------+ + + + + | Date | Type | Department | Care Team | Description | +--------+ + + + + | 04/06/ | Procedure - | [facility] | Record, Operation | Operative Report | | 1997 | | [place] [facility] [address] | | | | | Transcribed | Ruben Linares | | | | | | Mailcode: [place] | | | | | | [facility] | | | | | | Healing, [address] | | | | | | [facility] [place] | | | | | | [address] | | | | | | [phone] | | | +--------+ + + + [...] 12:00 AM PDT [place] | | [facility] | | [address] [place], [place] [address] | | [facility] | | | | OPERATION RECORD | | | | Med Rec No.: [id number] Date: 04/06/98 | | | | Name: Con Kavon Morris | | | | | | ATTENDING SURGEON: | | Galo Arora M.D. | | Vamp Throater, | | Division of Plastic & | | Reconstructive Surgery | | LAWN MOWER OPERATOR(S): | | Barry Fofana M.D. | [...] | | Galo Arora M.D. | | Vamp Throater, | | Division of Plastic & | | Reconstructive Surgery | | WOJCIECH/pita | | | | P | | C: 05/12/98 lv | | cc: | | | + + documented in this encounter Visit Diagnoses Not on filedocumented in this encounter"
--- OUTSIDE RECORDS SUMMARY | ~2019-09-27 | XMS | Encounter Summary ---
Demographics + + + | Address | [address] | | | [place] [address] | + + + | Home Phone [...] [place] | | | | | [address] | | + + + + + Care Team Providers + +------+ + | Care Security Police Officer Name | Role | Phone [...] Pavilion | | | | | | [place], [place] | | | | | | [address] | | | | | | [phone] | | | +--------+ + + + [...]
--- OUTSIDE RECORDS SUMMARY | ~2019-09-27 | XMS | Encounter Summary ---
Demographics + + + | Address | [address] | | | [place] [address] | + + + | Home Phone [...] Providers + +------+ + | Care Advanced Solutions Architect Name | Role | Phone [...] + | 09/10/ | Anesthesia | [facility] | Venkata Carroll | | | 2019 | [facility] | CORNELL Grewal [address] | | | | | OPERATING ROOM [address] | [address] | | | | | [address] | [place] [address] | | | | | [place], [place] | [phone] | | | | | [address] | | | | | | [phone] | | | +--------+ + + + + Anesthesia Record + + + + + | Procedure Name | Responsible | Anesthesia Start | Anesthesia Stop Time | | | Anesthesiologist | Time | | + + + + + | INSERTION AV FISTULA | Venkata Carroll, | 09/10/19 1307 | 09/10/19 1401 | | (Right BBF) (Right | FLUE LINING DIPPER | | | | Arm Upper) | [...] 09/10/19 1600 by | | erazoë | flfa-hhw-lwuaav catheter system; | Trinidad Ramírez | Leana [...] [place] | | | | | | [address] | | | | | | | | +--------+---------+ + + + | 10/04/ | Office | Nephrology | Farrukh Acuna MD | | | 2018 | Visit | | [address] [place] | | | | | | [address] [place] | | | | | | [address] | | | | | | | [...]
--- OUTSIDE RECORDS SUMMARY | ~2019-09-27 | XMS | Encounter Summary ---
Demographics + + + | Address | [address] | | | [place] [address] | + + + | Home Phone [...] [place] | | | | | [address] | | + + + + + Care Team Providers + +------+ + | Care Bucket Chucker Name | Role | Phone | + [...] Clinic | | | | | | [facility], [address] | | | | | | [place], [place] | | | | | | [address] | | | | | | [phone] | | | +--------+ + + + [...] as of this encounter Progress Notes Interface, Front End Ui Developer In - 01/06/2007 5:03 AM PST CLINIC [...] of narcotic medication misuse. Nelson Melara M.D. Hand Printed Circuit Board Assembler, [facility] MANDY/camryn cc: Robert Carlson M.D. Professor, Vascular Surgery documented in this encounter Plan of Treatment Not on filedocumented as of this encounter Visit Diagnoses Not on filedocumented in this encounter"
--- OUTSIDE RECORDS SUMMARY | ~2019-09-27 | XMS | Encounter Summary ---
Demographics + + + | Address | [address] | | | [place] [address] | + + + | Home Phone [...] Team Providers + +------+ + | Care Speeder Worker Name | Role | Phone | + +------+ + | Rahul Silva MD | PCP | Unavailable | + +------+ + Encounter Details +--------+ + + + + | Date | Type | Department | Care Team | Description | +--------+ + + + + | 07/20/ | Orders Only | [facility] | Farrukh Acuna MD | Anemia of chronic | | 2019 | | NEPHROLOGY [place] | [address] [place] | renal failure, stage | | | | [address] [place] | [address] [place], [place] | 4 (severe) (HCC) | | | | [address] [place], [place] | [address] | (Primary Dx); Stage | | | | [address] | | 4 chronic kidney | | | | [phone] | | disease (HCC); | | | [...] | | | | | [place] | | | | | | [id number] | | | | | | | | +--------+---------+ + + + | 10/04/ | Office | Nephrology | Farrukh Acuna MD | | | 2018 | Visit | | [address] [facility] | | | | | | [address] [facility] [place] | | | | | | [address] | | | | | | | [...]
--- OUTSIDE RECORDS SUMMARY | ~2019-09-27 | XMS | Encounter Summary ---
Demographics + + + | Address | [address] | | | [place] [address] | + + + | Home Phone [...] | Rahul iSlva MD | PCP | Unavailable | + +------+ + Reason for Visit + + + | Reason | Comments | + + + | Advice Only | surgery | + + + Encounter Details +--------+ + + + + | Date | Type | Department | Care Team | Description | +--------+ + + + + | 09/01/ | Telephone | [facility] | Brian Orosco MD | Advice Only | | 2019 | | VASCULAR SURGERY | [address] | (surgery) | | | | [address] [place] | [place], [place] | | | | | [place], [place] | [address] | | | | | [address] | [phone] | | | | | [phone] | | | +--------+ + + + [...] [place] | | | | | | [address] | | | | | | | | +--------+---------+ + + + | 10/04/ | Office | Nephrology | Farrukh Acuna MD | | | 2019 | Visit | | [address] [facility] | | | | | | 160 [place], [place] | | | | | | [address] | | | | | | | | +--------+---------+ + + + documented as of this encounter Visit Diagnoses Not on filedocumented in this encounter"
--- OUTSIDE RECORDS SUMMARY | ~2019-09-27 | XMS | Encounter Summary ---
Demographics + + + | Address | [address] | | | [place] [address] | + + + | Home Phone [...] Providers + +------+ + | Care Field Observer Name | Role | Phone | [...] + + | 09/03/ | Telephone | [facility] | Alfred, | Lab Results | | 2019 | | [facility] | [facility] | | | | | [address] [place] | Unified Communications Architect | | | | | 160 [place], [place] | | | | | | [address] | | | | | | [phone] | | | +--------+ + + + [...] [place] | | | | | | [address] | | | | | | | | +--------+---------+ + + + | 10/04/ | Office | Nephrology | Farrukh Acuna MD | | | 2019 | Visit | | [address] [place] | | | | | | [address] [place] | | | | | | [address] | | | | | | | | +--------+---------+ + + + documented as of this encounter Visit Diagnoses Not on filedocumented in this encounter"
--- OUTSIDE RECORDS SUMMARY | ~2019-09-27 | XMS | Encounter Summary ---
Demographics + + + | Address | [address] | | | [place] [address] | + + + | Home Phone [...] Providers + +------+ + | Care Vending Stand Supervisor Name | Role | Phone | [...] + + | 08/26/ | Office | [facility] | Trisha Conner DNP | CKD (chronic kidney | | 2019 | Visit | VASCULAR SURGERY | [address] | disease) stage 5, | | | | [address] [place] | [place], [place] | GFR less than 15 | | | | [place], [place] | [address] | ml/min (HCC) | | | | [address] | | (Primary Dx) | | | | [phone] | Brian Orosco MD | | | | | | [address] | | | | | | [place], [place] | | | | | | [address] | | | | | | [phone] | | | | | | | [...] from the kathleen gerald. Subjective Subjective Mr. Andujra is a pleasant 79 y.o. male with [...] CV: No peripheral edema, rate regular SKIN: [place], warm, dry without rash/lesion MS: ROM not [...] [place] | | | | | | [phone] | | | | | | | | +--------+---------+ + + + | 10/04/ | Office | Nephrology | Farrukh Acuna MD | | | 2018 | Visit | | [address] [place] | | | | | | [address] [place] | | | | | | [address] | | | | | | | [...] stage 5, GFR less than 15 ml/min ([facility]) - Primary Chronic | | kidney disease, Stage V | + + documented in this encounter"
--- OUTSIDE RECORDS SUMMARY | ~2019-09-27 | XMS | Encounter Summary ---
Demographics + + + | Address | [address] | | | [place] [address] | + + + | Home Phone [...] [place] | | | | | [address] | | + + + + + Care Team Providers + +------+ + | Care Teleprinter Name | Role | Phone | + [...] Rd | | | | | | [place], [place] | | | | | | [address] | | | +--------+ + + + [...] of this encounter Progress Notes Interface, Manager Body In - 03/27/2007 3:12 AM PDT CLINIC [...] an abnormal AC-BE, he was referred to [facility] for colonoscopy. MEDICATIONS: 1. Vicodin. 2. Various [...] Dr. Valles who is his physician in [place], [place]. He has made me aware that [...] M.D. Fellow, Gastroenterology SHANEL/stephon cc: ARIA WATKINS [facility] [place] documented in this encounter Plan of Treatment Not on filedocumented as of this encounter Visit Diagnoses Not on filedocumented in this encounter"
--- OUTSIDE RECORDS SUMMARY | ~2019-09-27 | XMS | Encounter Summary ---
Demographics + + + | Address | [address] | | | [place] [address] | + + + | Home Phone [...] Team Providers + +------+ + | Care Stamp Presser Name | Role | Phone | + [...] + + | 09/23/ | Telephone | [facility] | Brian Orosco MD | Advice Only | | 2019 | | VASCULAR SURGERY | [address] | | | | | [address] [place] | [place], [place] | | | | | [place], [place] | [address] | | | | | [address] | [phone] | | | | | [phone] | | | +--------+ + + + [...] [place] | | | | | | [address] | | | | | | | | +--------+---------+ + + + | 10/04/ | Office | Nephrology | Farrukh Acuna MD | | | 2019 | Visit | | [address] [facility] | | | | | | 160 [facility] [place] | | | | | | [address] | | | | | | | | +--------+---------+ + + + documented as of this encounter Visit Diagnoses Not on filedocumented in this encounter"
--- OUTSIDE RECORDS SUMMARY | ~2019-09-27 | XMS | Encounter Summary ---
Demographics + + + | Address | [address] | | | [place] [address] | + + + | Home Phone [...] + | Darci Andujar | ECON | [place] | | | | | [address] | | + + + + + Care Team Providers + +------+ + | Care Quality Improvement Engineer Name | Role | Phone | + +------+ + PCP | Unavailable | + +------+ + Encounter Details +--------+ + + + + | Date | Type | Department | Care Team | Description | +--------+ + + + + | 02/26/ | Results | | Other, Faculty | | | 1993 | Only | | [phone] | | +--------+ + + + + [...]
--- OUTSIDE RECORDS SUMMARY | ~2019-09-27 | XMS | Encounter Summary ---
Demographics + + + | Address | [address] | | | [place] [address] | + + + | Home Phone [...] [place] | | | | | [address] | | + + + + + [...] Rd | | | | | | [place] | | | | | | [address] | | | +--------+ + + + [...] as of this encounter Discharge Summaries Interface, Project Leader In - 04/01/2007 5:08 AM PDT [address] [address] [facility] MEDICAL SUMMARY [...] cc: RUBIA KNAPP MD [address] [facility] [address] documented in this encounter Plan of Treatment Not on filedocumented as of this encounter Visit Diagnoses Not on filedocumented in this encounter"
--- OUTSIDE RECORDS SUMMARY | ~2019-09-27 | XMS | Encounter Summary ---
Demographics + + + | Address | [address] | | | [place] [address] | + + + | Home Phone [...] [place] | | | | | [address] | | + + + + + Care Team Providers + +------+ + | Care Canine Service Teacher Name | Role | Phone | [...] [address] | | | | | | [place], [place] | | | | | | [address] | | | | | | [phone] | | | +--------+ + + + [...] of this encounter Progress Notes Interface, Film Laboratory Technician In - 01/06/2007 5:03 AM PST CLINIC DATE: 10/31/97 [facility] - PROCEDURE NOTE [...] his left thigh stump. Nelson Melara M.D. Ranch Hand Livestock, Anesthesiology [facility] Management Center MANDY/maryjo documented in this encounter Plan of Treatment Not on filedocumented as of this encounter Visit Diagnoses Not on filedocumented in this encounter"
--- OUTSIDE RECORDS SUMMARY | ~2019-09-27 | XMS | Encounter Summary ---
Demographics + + + | Address | [address] | | | [place] [address] | + + + | Home Phone [...] [place] | | | | | [address] | | + + + + + Care Team Providers + +------+ + | Care Tank House Operator Helper Name | Role | Phone | + +------+ + PCP | Unavailable | + +------+ + Encounter Details +--------+ + + + + | Date | Type | Department | Care Team | Description | +--------+ + + + + | 08/05/ | Transcribed | Allergy Clinic at | Oliva, Other | Transcribed | | 1995 | | [facility] [address] | | | | | | [address] | | | | | | Mailcode: [id number] | | | | | | [place] | | | | | | [place], | | | | | | [place] [address] | | | | | | [phone] | | | +--------+ + + + [...] as of this encounter Progress Notes Interface, Operations Staff Specialist Security In - 02/17/2007 3:02 AM PDT [address] [address] or August 05, 1996 RUBIA VALLES MD [address] [facility] [address] RE:PORFIRIO ZAVALA MR#:[id number] Valles: Mr. Porfirio Zavala returned to the [facility] Neurosurgery [facility] today for a followup visit. 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 Mr. Zavala has failed numerous femoral nerve blocks, sciatic nerve blocks, and spinal cord blocks, and was at one time enrolled in the [facility] Pain Clinic. Mr. Zavala's pain [...] dictating for: Alina Moise M.D. Professor and Juice Scaleman, Division of Neurosurgery MARYANA/sajan cc: Seven Khan, Ph.D. Clinical Psychologist-Neuropsychologist documented in this encounter Plan of Treatment Not on filedocumented as of this encounter Visit Diagnoses Not on filedocumented in this encounter"
--- OUTSIDE RECORDS SUMMARY | ~2019-09-27 | XMS | Encounter Summary ---
Demographics + + + | Address | [address] | | | [place] [address] | + + + | Home Phone [...] [place] | | | | | [address] | | + + + + + Care Team Providers + +------+ + | Care Senior Financial Consultant Name | Role | Phone | [...] Clinic | | | | | | [facility], [address] | | | | | | [place], [place] | | | | | | [address] | | | | | | [phone] | | | +--------+ + + + [...] as of this encounter Progress Notes Interface, Fleet Mechanic In - 01/03/2007 5:08 AM PST CLINIC DATE: 12/22/97 Mr. Andujar is referred by Dr. Jerry Smiley in the [place] area. He is currently followed by the Anesthesia Pain Service at [facility], and also recently has been followed by [...] Dr. Robert Carlson's supervision here at [facility]. His pain continued, exacerbated by a fall [...] procedure at this time. Eric Mcclure M.D. Retirement Specialist, Department of Orthopaedics and Rehabilitation AY/sara A cc: Jerry Smiley M.D. (with letter) [address] [place] [address] [address] [place] [address] Robert Carlson M.D. FAX: [phone] Alina Moise M.D. FAX: [phone] Anesthesia Pain ClinicFAX: [phone] documented in this encounter Plan of Treatment Not on filedocumented as of this encounter Visit Diagnoses Not on filedocumented in this encounter
--- OUTSIDE RECORDS SUMMARY | ~2019-09-27 | XMS | Encounter Summary ---
Demographics + + + | Address | [address] | | | [place] [address] | + + + | Home Phone [...] Providers + +------+ + | Care Stretching Machine Tender Frame Name | Role | Phone | + [...] + + | 07/21/ | Documentati | [facility] | Simon, | Results (07/19/19) | | 2019 | on | NEPHROLOGY [place] | [facility] | | | | | [address] | Performance Improvement Manager | | | | | 160 [facility] [place] | | | | | | [address] | | | | | | [phone] | | | +--------+ + + + [...] [place] | | | | | | [address] | | | | | | | | +--------+---------+ + + + | 10/04/ | Office | Nephrology | Farrukh Acuna MD | | | 2019 | Visit | | [address] [facility] | | | | | | [address] [place] | | | | | | [address] | | | | | | | [...]
--- OUTSIDE RECORDS SUMMARY | ~2019-09-27 | XMS | Encounter Summary ---
Demographics + + + | Address | [address] | | | [place] [address] | + + + | Home Phone [...] [place] | | | | | [address] | | + + + + + Care Team Providers + +------+ + | Care Jingle Writer Name | Role | Phone | [...] Clinic | | | | | | [facility], [address] | | | | | | [place], [place] | | | | | | [address] | | | | | | [phone] | | | +--------+ + + + [...] as of this encounter Progress Notes Interface, Graduate School Dean In - 01/09/2007 5:07 AM PST CLINIC DATE: 10/03/97 [facility] PAIN [facility] [...] Vargas D.O. Resident, Anesthesiology Nelson Melara M.D. Lead Mechanical Engineer, Anest[facility]iology [facility] KAYLEENM/madelinev cc: [place] [address] JESSENIA RODRIGUEZ MD DEPARTMENT OF FAMILY MEDICINE [facility] documented in this encounter Plan of Treatment Not on filedocumented as of this encounter Visit Diagnoses Not on filedocumented in this encounter"
--- OUTSIDE RECORDS SUMMARY | ~2019-09-27 | XMS | Encounter Summary ---
Demographics + + + | Address | [address] | | | [place] [address] | + + + | Home Phone [...] Providers + +------+ + | Care Business Management Specialist Name | Role | Phone [...] | | | | | Procedures | [address] | | | | | | VAS Arm | Phone: | | | | | | Bilateral | [phone] | | | | | | Mapping For | Fax: | | | | | | Dialysis | [phone] | | +--------+--------+ + + + + [...] | | | ([facility]) | [place] | | | | | | Procedures | [address] | | | | | | VAS Arm | Phone: | | | | | | Bilateral | [phone] | | | | | | Mapping For | Fax: | | | | | | Dialysis | [phone] | | +--------+--------+ + + + + Encounter Details +--------+ + + + + | Date | Type | Department | Care Team | Description | +--------+ + + + + | 08/20/ | Hospital | [facility] | Trisha Conner, MERY | 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 | VASCULAR SURGERY | [address] | renal disease) ([facility]) | | | | ULTRASOUND [address] | [place], [place] | | | | | [address] | [address] | | | | | [place], [place] | | | | | | [address] | | | | | | [phone] | | | +--------+ + + + [...] | | | | | [place], [place] | | | | | | [address] | | | | | | | | +--------+---------+ + + + | 10/04/ | Office | Nephrology | Farrukh Acuna MD | | | 2018 | Visit | | [address] [facility] | | | | | | [address] [place] | | | | | | [address] | | | | | | | [...] e | 13:58 PDT | renal disease) ([facility]) | procedure are in the | | [...]
--- OUTSIDE RECORDS SUMMARY | ~2019-09-27 | XMS | Clinical Summary ---
Demographics + + + | Address | [address] | | | [place] [address] | + + + | Home Phone [...] Author + + + | Author | [facility] | + + + | Organization | [facility] | + + + | Address | Unknown | + + + | Phone | Unavailable | + + + Support + + + + + | Name | Relationship | Address | Phone | + + + + + | Darci Andujar | VALERIE | [place] | | | | | [address] | | + + + + + Care Team Providers + +------+ + | Care Delivery Driver Assistant Name | Role | Phone | + +------+ + | Rahul Silva MD | PCP | | + +------+ + Source Comments [place] is fully live on both [facility] Ambulatory and [facility] InPatient.[facility] Allergies No Known Allergies Medications + [...]
--- OUTSIDE RECORDS SUMMARY | ~2019-09-27 | XMS | Clinical Summary ---
Demographics + + + | Address | [address] | | | [place] [address] | + + + | Home Phone | | + + + | Preferred Language | Unknown | + + + | Marital Status | | + + + | Orthodoxy Affiliation | 1077 | + + + | Race | Unknown | + + + | Ethnic Group | Unknown | + + + Author + + + | Author | [employer] [email or web address] (Historical as of | | | 07-17-19) | + + + | Organization | [email or web address] (Historical as of | | | [...] Providers + +------+ + | Care Metal Mixer Name | Role | Phone | [...] | | | 4 (severe) ([facility]), | | | | | | | [...] Last Assessment & Plan: Controlled on current huosckvbro16 yr | | old male with COPD, [...] + | 07/16/ | Telephone | | lAfred, | | | 2018 | | | [...] +------+-------+ + | MEDICARE | MEDICA | [id number] | | | [address] | | | RE | | | | [place] [address] | | | IP-OP | | | | | + +--------+ +------+-------+ + | MEDICAID | EASTER | [id number] | | | [address] | | | N | | | | [place], [place] | | | [place] | | | | [address] | | | [employer] | | | | | + +--------+ [...] | Self | [birth year] | Home: | [address] [place] [address] | | | al/Fam | | 1940 | [phone] | [place] | | | chula | | | 8711 | [address] | + +--------+ +--------+ + +
--- OUTSIDE RECORDS SUMMARY | ~2019-09-27 | XMS | Encounter Summary ---
Demographics + + + | Address | [address] | | | [place] [address] | + + + | Home Phone [...] Providers + +------+ + | Care Bilingual Medical Assistant Name | Role | Phone | [...] + + | 08/25/ | Telephone | [facility] | Brian Orosco MD | New Patient (08/26 | | 2019 | | VASCULAR SURGERY | [address] | appointment) | | | | [address] | [place], [place] | | | | | [place], [place] | [address] | | | | | [address] | [phone] | | | | | [phone] | | | +--------+ + + + [...] [place] | | | | | | [address] | | | | | | | | +--------+---------+ + + + | 10/04/ | Office | Nephrology | Farrukh Acuna MD | | | 2019 | Visit | | [address] [facility] | | | | | | [address] [place] | | | | | | [address] | | | | | | | | +--------+---------+ + + + documented as of this encounter Visit Diagnoses Not on filedocumented in this encounter"
--- OUTSIDE RECORDS SUMMARY | ~2019-09-27 | XMS | Encounter Summary ---
Demographics + + + | Address | [address] | | | [place] [address] | + + + | Home Phone [...] Team Providers + +------+ + | Care Bsa Officer Name | Role | Phone | [...] + + | 08/25/ | Telephone | [facility] | Brian Orosco MD | New Patient (08/26 | | 2019 | | VASCULAR SURGERY | [address] | appointment) | | | | [address] | [place], [place] | | | | | [place], [place] | [address] | | | | | [address] | [phone] | | | | | [phone] | | | +--------+ + + + [...] [place] | | | | | | [address] | | | | | | | | +--------+---------+ + + + | 10/04/ | Office | Nephrology | Farrukh Acuna MD | | | 2019 | Visit | | [address] [facility] | | | | | | [address] [place] | | | | | | [address] | | | | | | | | +--------+---------+ + + + documented as of this encounter Visit Diagnoses Not on filedocumented in this encounter"
--- OUTSIDE RECORDS SUMMARY | ~2019-09-27 | XMS | Encounter Summary ---
Demographics + + + | Address | [address] | | | [place] [address] | + + + | Home Phone [...] [place] | | | | | [address] | | + + + + + Care Team Providers + +------+ + | Care Bonbon Cream Warmer Name | Role | Phone | + [...] Pavilion | | | | | | [place], [place] | | | | | | [address] | | | | | | [phone] | | | +--------+ + + + [...]
--- OUTSIDE RECORDS SUMMARY | ~2019-09-27 | XMS | Encounter Summary ---
Demographics + + + | Address | [address] | | | [place] [address] | + + + | Home Phone [...] Team Providers + +------+ + | Care Prepared Foods Service Team Member Name | Role | Phone [...] + + | 08/13/ | Telephone | [facility] | Farrukh Acuna MD | Other (lab result) | | 2019 | | NEPRHOLOGY [place] | [address] | | | | | [address] | [address] [place], [place] | | | | | [address] [place], [place] | [address] | | | | | [address] | | | | | | [phone] | | | +--------+ + + + [...] [place] | | | | | | [address] | | | | | | | | +--------+---------+ + + + | 10/04/ | Office | Nephrology | Farrukh Acuna MD | | | 2019 | Visit | | [address] [facility] | | | | | | [address] [place], [place] | | | | | | [address] | | | | | | | | +--------+---------+ + + + documented as of this encounter Visit Diagnoses Not on filedocumented in this encounter"
--- OUTSIDE RECORDS SUMMARY | ~2019-09-27 | XMS | Encounter Summary ---
Demographics + + + | Address | [address] | | | [place] [address] | + + + | Home Phone [...] [place] | | | | | [address] | | + + + + + Care Team Providers + +------+ + | Care Plasterer Rough Name | Role | Phone | + [...] [address] | | | | | | [place], [place] | | | | | | [address] | | | | | | [phone] | | | +--------+ + + + [...] of this encounter Progress Notes Interface, Hand Salter In - 01/06/2007 5:03 AM PST CLINIC DATE: 10/31/97 [facility] - PROCEDURE [...] his left thigh stump. Nelson Melara M.D. Manager Product Management, Anesthesiology Pain Management Center MANDY/maryjo documented in this encounter Plan of Treatment Not on filedocumented as of this encounter Visit Diagnoses Not on filedocumented in this encounter"
--- OUTSIDE RECORDS SUMMARY | ~2019-09-27 | XMS | Encounter Summary ---
Demographics + + + | Address | [address] | | | [place] [address] | + + + | Home Phone [...] Providers + +------+ + | Care Forensic Ballistics Expert Name | Role | Phone | [...] as of this encounter Progress Notes Interface, Acid Recovery Operator In - 11/10/2006 2:27 AM PSTCLINIC DATE: [...] he embarked on this. Galo Arora M.D. Main Line Assembler, Plastic and Reconstructive Surgery WOJCIECH / [id number] / [id number] / 700 cc: Nelson Melara M.D. Anesthesiology. [facility]. [id number] signed by Interface, Acid Recovery Operator In at 11/10/2006 2:27 AM PSTdocume nted in this encounter Plan of Treatment Not on filedocumented as of this encounter Visit Diagnoses Not on filedocumented in this encounter"
--- OUTSIDE RECORDS SUMMARY | ~2019-09-27 | XMS | Clinical Summary ---
Demographics + + + | Address | [address] | | | [place] [address] | + + + | Home Phone [...] Author + + + | Author | [facility] | + + + | Organization | [facility] | + + + | Address | Unknown | + + + | Phone | Unavailable | + + + Support + + + + + | Name | Relationship | Address | Phone | + + + + + | Darci Andujar | VALERIE | [place] | | | | | [address] | | + + + + + Care Team Providers + +------+ + | Care Quoter Name | Role | Phone | + +------+ + | Rahul Silva MD | PCP | | + +------+ + Source Comments [place] is fully live on both [facility] Ambulatory and [facility] InPatient.[facility] Allergies No Known Allergies Medications [...]
--- OUTSIDE RECORDS SUMMARY | ~2019-09-27 | XMS | Encounter Summary ---
Demographics + + + | Address | [address] | | | [place] [address] | + + + | Home Phone [...] Team Providers + +------+ + | Care Shank Sorter Name | Role | Phone | [...] | Telephone | [facility] | Sandy Goemz, | Surgery Appointment | | 2019 | | VASCULAR SURGERY | RN | | | | | [address] | | | | | | [place], [place] | | | | | | [address] | | | | | | [phone] | | | +--------+ + + + [...] SOW | | | | | | 521762 | | | | | | | | +--------+---------+ + + + | 10/04/ | Office | Nephrology | Farrukh Acuna MD | | | 2019 | Visit | | [address] [facility] | | | | | | [address] [place], [place] | | | | | | [address] | | | | | | | | +--------+---------+ + + + documented as of this encounter Visit Diagnoses Not on filedocumented in this encounter"
--- OUTSIDE RECORDS SUMMARY | ~2019-09-27 | XMS | Encounter Summary ---
Demographics + + + | Address | [address] | | | [place] [address] | + + + | Home Phone [...] [place] | | | | | [address] | | + + + + + Care Team Providers + +------+ + | Care Tobacco Acreage Measurer Name | Role | Phone | + [...] as of this encounter Progress Notes Interface, Geodesy Teacher In - 11/10/2006 2:27 AM PSTCLINIC DATE: [...] he embarked on this. Galo Arora M.D. Cutting Machine Operator, Plastic and Reconstructive Surgery WOJCIECH / [id number] / [id number] / 700 cc: Nelson Melara M.D. Anesthesiology. [facility]. [id number] signed by Interface, Geodesy Teacher In at 11/10/2006 2:27 AM PSTdocume nted in this encounter Plan of Treatment Not on filedocumented as of this encounter Visit Diagnoses Not on filedocumented in this encounter"
--- OUTSIDE RECORDS SUMMARY | ~2019-09-27 | XMS | Encounter Summary ---
Demographics + + + | Address | [address] | | | [place] [address] | + + + | Home Phone [...] + | Darci Andujar | [place]ERIE | [place] | | | | | [address] | | + + + + + Care Team Providers + +------+ + | Care Cloth Calender Name | Role | Phone | + [...] [id number] | | | | | | [place], [place] | | | | | | [address] | | | | | | [phone] | | | +--------+ + + + [...] | + + + + + | [facility] | [address] | [place] [address] | | | PATHOLOGY | [address] [...] | + + + + + | [facility] | [address] | [place] [address] | | | PATHOLOGY | [address] [...] | + + + + + | [facility] | [address] | [place] [address] | | | PATHOLOGY | [address] [...] | + + + + + | [facility] | [address] | [place] [address] | | | PATHOLOGY | [address] | | | + + + + + documented in this encounter Visit Diagnoses Not on filedocumented in this encounter
--- OUTSIDE RECORDS SUMMARY | ~2019-09-27 | XMS | Encounter Summary ---
Demographics + + + | Address | [address] | | | [place] [address] | + + + | Home Phone [...] [place] | | | | | [address] | | + + + + + Care Team Providers + +------+ + | Care Entertainment & Media Correspondent Name | Role | Phone | + [...] [address] | | | | | | [place], [place] | | | | | | [address] | | | | | | [phone] | | | +--------+ + + + [...] as of this encounter Progress Notes Interface, Historic Sites Supervisor In - 01/09/2007 5:07 AM PST CLINIC DATE: 10/03/97 [facility] - [...] Vargas D.O. Resident, Anesthesiology Nelson Melara M.D. Fixed Income Trading Vice President, Anesthesiology [facility] KAYLEENM/madelinev cc: [place] [address] JESSENIA RODRIGUEZ MD DEPARTMENT OF FAMILY MEDICINE [facility] documented in this encounter Plan of Treatment Not on filedocumented as of this encounter Visit Diagnoses Not on filedocumented in this encounter"
--- OUTSIDE RECORDS SUMMARY | ~2019-09-27 | XMS | Encounter Summary ---
Demographics + + + | Address | [address] | | | [place] [address] | + + + | Home Phone [...] Providers + +------+ + | Care House Carpenter Helper Name | Role | Phone | [...] Venkata Carroll | | | 2019 | [facility] | [address] | | | | | OPERATING ROOM [address] | [address] | | | | | [address] | [place] [address] | | | | | [place], [place] | [phone] | | | | | [address] | | | | | | [phone] | | | +--------+ + + + + Anesthesia Record + + + + + | Procedure Name | Responsible | Anesthesia Start | Anesthesia Stop Time | | | Anesthesiologist | Time | | + + + + + | INSERTION AV FISTULA | Venkata Carroll, | 09/10/19 1307 | 09/10/19 1401 | | (Right BBF) (Right | DISTRICT MANAGER | | | | Arm Upper) | [...] 09/10/19 1600 by | | erazoë | lsfu-qbt-wzhaud catheter system; | Trinidad Ramírez | Leana [...] [place] | | | | | | [address] | | | | | | | | +--------+---------+ + + + | 10/04/ | Office | Nephrology | Farrukh Acuna MD | | | 2018 | Visit | | [address] | | | | | | [address] [place] | | | | | | [address] | | | | | | | [...]
--- OUTSIDE RECORDS SUMMARY | ~2019-09-27 | XMS | Encounter Summary ---
Demographics + + + | Address | [address] | | | [place] [address] | + + + | Home Phone [...] [place] | | | | | [address] | | + + + + + Care Team Providers + +------+ + | Care Book Store Associate Name | Role | Phone | + +------+ + PCP | Unavailable | + +------+ + Encounter Details +--------+ + + + + | Date | Type | Department | Care Team | Description | +--------+ + + + + | 12/28/ | Procedure - | Digestive Health | Record, Operation | Operative Report | | 1996 | | [facility] [facility] [address] | | | | | Transcribed | Ruben Linares | | | | | | Mailcode: [place] | | | | | | [facility] | | | | | | Healing, Building [address] | | | | | | [facility] [place] | | | | | | [address] | | | | | | [phone] | | | +--------+ + + + [...] + + | 12/28/1996 12:00 AM [facility] | | [facility] | | [address], [place] [address] | | [facility] | | | | OPERATION RECORD | | | | Med Rec No.: [id number] Date: 12/28/96 | | | | Name: Mehran Andujarald Arturo | | | | | | ATTENDING SURGEON: Robert Carlson M.D. | | Professor, | | Vascular Surgery | | | | PIANO STRINGER(S): Nick Noriega M.D. | | Vocational Technical Education Director, General Surgery | | | | POSTOPERATIVE DIAGNOSIS(ES): Left stump osteophyte. | | | | OPERATION(S) PERFORMED: Revision of left sdgbh-pdx-mpah amputation | | and excision of stump osteophyte. | | | | SPECIMEN(S) REMOVED: 1. Swab of pseudocapsule for culture. | | 2. Osteophyte to Pathology. | | | | ANESTHESIA: General endotracheal anesthesia. | | | | INDICATIONS: The patient is a 56-year-old white male who | | is status post left dwsjj-ncd-typm | | amputation three years ago secondary | | to embolus. He has developed pain over the stump. A recent CT scan showed | | an osteophyte growing on the end of the stump. | | | | PROCEDURE: The patient was taken to the Operating Room. | | General endotracheal anesthesia was | | performed by Anesthesia. The | | left itoee-bsr-fyiv amputation stump was sterilely prepped and draped [...] | | Nick Noriega M.D. | | Vocational Technical Education Director, General Surgery | | Robert Carlson M.D. | | Professor, | | Vascular Surgery | | | | DOMINIC/jc | | | | A | | | | cc: | | | + + documented in this encounter Visit Diagnoses Not on filedocumented in this encounter"
--- OUTSIDE RECORDS SUMMARY | ~2019-09-27 | XMS | Encounter Summary ---
Demographics + + + | Address | [address] | | | [place] [address] | + + + | Home Phone | | + + + | Preferred Language | Unknown | + + + | Marital Status | | + + + | Yarsanism Affiliation | [id number] | + + + | Race | Unknown | + + + | Ethnic Group | Unknown | + + + Author + + + | Author | [facility] (Historical as of | | | 07-17-19) | + + + | Organization | [facility] (Historical as of | | | 07-17-19) [...] Team Providers + +------+ + | Care Agricultural And Forestry Supervisor Name | Role | Phone | [...] | | | | | [place] [address] | | | | | | [phone] | | | +--------+ + + + [...]
--- OUTSIDE RECORDS SUMMARY | ~2019-09-27 | XMS | Encounter Summary ---
Demographics + + + | Address | [address] | | | [place] [address] | + + + | Home Phone [...] Team Providers + +------+ + | Care Rigger Up Name | Role | Phone | [...] + + | 09/17/ | Documentati | [facility] | Oly Alvarenga | Labs Only ([facility] | | 2019 | on | NEPRHOLOGY [place] | V, Medical | 08/24/19) | | | | [address] | Electrician Wiring | | | | | [address] [place], [place] | | | | | | [address] | | | | | | [phone] | | | +--------+ + + + [...] | | | | | [place] | | | | | | [address] | | | | | | | | +--------+---------+ + + + | 10/04/ | Office | Nephrology | Farrukh Acuna MD | | | 2018 | Visit | | [address] [facility] | | | | | | [address] [facility] | | | | | | [address] | | | | | | | [...] + + + | REFERENCE LAB | [address] [place] [address] | [place] [address] | [phone] | | [facility] | | | | + + + + + documented in this encounter Visit Diagnoses Not on filedocumented in this encounter"
--- OUTSIDE RECORDS SUMMARY | ~2019-09-27 | XMS | Encounter Summary ---
Demographics + + + | Address | [address] | | | [place] [address] | + + + | Home Phone [...] [place] | | | | | [address] | | + + + + + Care Team Providers + +------+ + | Care Tax Processor Name | Role | Phone | [...] [address] | | | | | | [place] | | | | | | [address] | | | +--------+ + + + [...] as of this encounter Discharge Summaries Interface, Insurance Investigator In - 04/01/2007 5:08 AM PDT [address] [address] [facility] MEDICAL [...] cc: RUBIA KNAPP MD [address] [facility] [address] documented in this encounter Plan of Treatment Not on filedocumented as of this encounter Visit Diagnoses Not on filedocumented in this encounter"
--- OUTSIDE RECORDS SUMMARY | ~2019-09-27 | XMS | Encounter Summary ---
Demographics + + + | Address | [address] | | | [place] [address] | + + + | Home Phone [...] Providers + +------+ + | Care Process Design Engineer Name | Role | Phone [...] + + | 09/17/ | Documentati | [facility] | Oly Alvarenga | Labs Only ([facility] | | 2019 | on | NEPRHOLOGY [address] | V, Medical | 08/24/19) | | | | [address] | Computer Trainer | | | | | [address] [place], [place] | | | | | | [address] | | | | | | [phone] | | | +--------+ + + + [...] | | | | | [address] [place] [address] [place] | | | | | | [address] | | | | | | | | +--------+---------+ + + + | 10/04/ | Office | Nephrology | Farrukh Acuna MD | | | 2018 | Visit | | [address] [facility] | | | | | | [facility] | | | | | | [address] | | | | | | | [...] + + + | REFERENCE LAB | [address] [place] [address] | [place] [address] | [phone] | | [facility] | | | | + + + + + documented in this encounter Visit Diagnoses Not on filedocumented in this encounter"
--- OUTSIDE RECORDS SUMMARY | ~2019-09-27 | XMS | Encounter Summary ---
Demographics + + + | Address | [address] | | | [place] [address] | + + + | Home Phone [...] [place] | | | | | [address] | | + + + + + Care Team Providers + +------+ + | Care Stock Lifter Name | Role | Phone | + +------+ + PCP | Unavailable | + +------+ + Encounter Details +--------+ + + + + | Date | Type | Department | Care Team | Description | +--------+ + + + + | 02/26/ | Results | | Other, Faculty | | | 1993 | Only | | [phone] | | +--------+ + + + + [...]
--- OUTSIDE RECORDS SUMMARY | ~2019-09-27 | XMS | Encounter Summary ---
Demographics + + + | Address | [address] | | | [place] [address] | + + + | Home Phone [...] [place] | | | | | [address] | | + + + + + Care Team Providers + +------+ + | Care Proof Reader Name | Role | Phone | + +------+ + PCP | Unavailable | + +------+ + Encounter Details +--------+ + + + + | Date | Type | Department | Care Team | Description | +--------+ + + + + | 03/30/ | Results | | Other, Faculty | | | 1992 | Only | | [phone] | | +--------+ + + + + [...] | | | | | | | [id number] AND | | | | | | [...] | | | | | | | [id number] | | | | | | CHEST: [...] | | | | | | | [id number] | | | | | | CHEST: [...] | | | | | | | [id number], | | | | | | PORTABLE, [...] | | | | | | | [id number], | | | | | | PORTABLE, [...] and | | | | | | Wyandotte Ganzcatheter are | | | | | [...] | | | | | | a Wy[place]otte-Lupe catheter | | | | | | [...] | | | | placement of a Wy[place]-Lupe | | | | | | catheter. CHEST, | | | | | | SINGLE AP PORTABLE: | | | | | | 03-31-93 AT 1000 HOURS | | | | | | FINDINGS: Since the | | | | | | prior study, the | | | | | | Wy[place]otte-Lupe catheter has | | | | | [...] IMPRESSION: | | | | | | Wyandotte-Lupe catheter | | | | | | [...] The | | | | | | Wyandotte-Lupe catheter | | | | | | [...] and | | | | | | Wyandotte-Lupe catheter | | | | | | [...] endotracheal | | | | | | tube,Wyandotte-Lupe catheter | | | | | | [...] | | | | | | a Wyandotte-Lupe catheter | | | | | | [...] | | | | placement of a Wy[place]otte-Lupe | | | | | | catheter. CHEST, | | | | | | SINGLE AP PORTABLE: | | | | | | 03-31-93 AT 1000 HOURS | | | | | | FINDINGS: Since the | | | | | | prior study, the | | | | | | Wy[place]otte-Lupe catheter has | | | | | [...] IMPRESSION: | | | | | | Wyandotte-Lupe catheter | | | | | | [...] The | | | | | | Wyandotte-Lupe catheter | | | | | | [...] and | | | | | | Wyandotte-Lupe catheter | | | | | | [...] endotracheal | | | | | | tube,Wyandotte-Lupe catheter | | | | | | [...] | | | | | | a Wyandotte-Lupe catheter | | | | | | [...] | | | | placement of a Wyandotte-Lupe | | | | | | catheter. CHEST, | | | | | | SINGLE AP PORTABLE: | | | | | | 03-31-93 AT 1000 HOURS | | | | | | FINDINGS: Since the | | | | | | prior study, the | | | | | | Wyandotte-Lupe catheter has | | | | | [...] IMPRESSION: | | | | | | Wyandotte-Lupe catheter | | | | | | [...] The | | | | | | Wyandotte-Lupe catheter | | | | | | [...] and | | | | | | Wyandotte-Lupe catheter | | | | | | [...] endotracheal | | | | | | tube,Wyandotte-Lupe catheter | | | | | | [...] | | | | | | a Wyandotte-Lupe catheter | | | | | | [...] | | | | placement of a Wyandotte-Lupe | | | | | | catheter. CHEST, | | | | | | SINGLE AP PORTABLE: | | | | | | 03-31-93 AT 1000 HOURS | | | | | | FINDINGS: Since the | | | | | | prior study, the | | | | | | Wyandotte-Lupe catheter has | | | | | [...] IMPRESSION: | | | | | | Wyandotte-Lupe catheter | | | | | | [...] The | | | | | | Wyandotte-Lupe catheter | | | | | | [...] and | | | | | | Wyandotte-Lupe catheter | | | | | | [...] endotracheal | | | | | | tube,Wyandotte-Lupe catheter | | | | | | [...] | | | | | | a Wyandotte-Lupe catheter | | | | | | [...] | | | | placement of a Wyandotte-Lupe | | | | | | catheter. CHEST, | | | | | | SINGLE AP PORTABLE: | | | | | | 03-31-93 AT 1000 HOURS | | | | | | FINDINGS: Since the | | | | | | prior study, the | | | | | | Wyandotte-Lupe catheter has | | | | | [...] IMPRESSION: | | | | | | Wyandotte-Lupe catheter | | | | | | [...] The | | | | | | Wyandotte-Lupe catheter | | | | | | [...] and | | | | | | Wyandotte-Lupe catheter | | | | | | [...] endotracheal | | | | | | tube,Wyandotte-Lupe catheter | | | | | | [...] | | | | | | a Wyandotte-Lupe catheter | | | | | | [...] | | | | placement of a Wyandotte-Lupe | | | | | | catheter. CHEST, | | | | | | SINGLE AP PORTABLE: | | | | | | 03-31-93 AT 1000 HOURS | | | | | | FINDINGS: Since the | | | | | | prior study, the | | | | | | Wyandotte-Lupe catheter has | | | | | [...] IMPRESSION: | | | | | | Wyandotte-Lupe catheter | | | | | | [...] The | | | | | | Wyandotte-Lupe catheter | | | | | | [...] and | | | | | | Wyandotte-Lupe catheter | | | | | | [...] endotracheal | | | | | | tube,Wyandotte-Lupe catheter | | | | | | [...] | | | | | | a Wyandotte-Lupe catheter | | | | | | [...] | | | | placement of a Wyandotte-Lupe | | | | | | catheter. CHEST, | | | | | | SINGLE AP PORTABLE: | | | | | | 03-31-93 AT 1000 HOURS | | | | | | FINDINGS: Since the | | | | | | prior study, the | | | | | | Wyandotte-Lupe catheter has | | | | | [...] IMPRESSION: | | | | | | Wyandotte-Lupe catheter | | | | | | [...] The | | | | | | Wyandotte-Lupe catheter | | | | | | [...] and | | | | | | Wyandotte-Lupe catheter | | | | | | [...] endotracheal | | | | | | tube,Wyandotte-Lupe catheter | | | | | | [...]
--- OUTSIDE RECORDS SUMMARY | ~2019-09-27 | XMS | Encounter Summary ---
Demographics + + + | Address | [address] | | | [place] [address] | + + + | Home Phone [...] [place] | | | | | [address] | | + + + + + Care Team Providers + +------+ + | Care Manager Integrated Name | Role | Phone | + [...] | | | amputation | [place], | [place], [place] | | | | | stump, | [place] [address] | [address] | | | | | unspecified | Phone: | Phone: | | | | | | [phone] | [phone] | | | | | | Fax: | Fax: | | | | | | [phone] | [phone] | +--------+--------+ + + + + Encounter Details +--------+---------+ + + + | Date | Type | Department | Care Team | Description | +--------+---------+ + + + | 04/10/ | Office | [facility] | Seven Reilly MD | Low back pain; | | 2009 | Visit | Pain Center at | [address] | Herniated lumbar | | | | [facility] | [place], [place] | intervertebral disc; | | | | [address] | [address] | Stump pain (HCC) | | | | Mailcode: [facility] | [phone] | | | | | [facility] | | | | | | and Healing, | | | | | | Building | | | | | | Floor [place], [place] | | | | | | [address] | | | | | | [phone] | | | +--------+---------+ + + + [...] the trainee's note. Seven Reilly MD, DABA, [facility] [facility] P DTMariano Martinez MD - 04/10/2010 12:30 PM PDT [facility] Office Visit 04/10/2010 Kavon Andujar; ; : 1940 Mr. Andujar was referred for pain management consultation by RAHUL COYNE MD [address] [place] [address], [place] [id number] Reason for visit: Chief Complaint Patient presents [...] pain. He has been referred to the [facility] for consultation regarding [...] that the most effective treatments include: medications. MENTAL HEALTH ASSOCIATE Brief Pain Inventory: (ten= worst possible pain [...] above. As part of today's visit the [facility] new patient questionnaire [...] you expect from your visits to the [facility] ? Don't know [...] and summary of old medical records (source: [employer]), as summarized in the body of the [...] generic medication. Follow up: none scheduled at [facility] [place]. Mariano Martinez MD Pain Fellow [facility] [place] [facility] documented in this encounter Plan of [...]
--- OUTSIDE RECORDS SUMMARY | ~2019-09-27 | XMS | Encounter Summary ---
Demographics + + + | Address | [address] | | | [place] [address] | + + + | Home Phone [...] [place] | | | | | [address] | | + + + + + Care Team Providers + +------+ + | Care Sheep Shearer Name | Role | Phone | + +------+ + PCP | Unavailable | + +------+ + Encounter Details +--------+ + + + + | Date | Type | Department | Care Team | Description | +--------+ + + + + | 04/06/ | Procedure - | Digestive Health | Record, Operation | Operative Report | | 1997 | | [place] [facility] [address] | | | | | Transcribed | Ruben Linares | | | | | | Mailcode: [place] | | | | | | [facility] Health and | | | | | | Healing, [address] | | | | | | [facility] [place] | | | | | | [address] | | | | | | [phone] | | | +--------+ + + + [...] + + | 04/06/1998 12:00 AM PDT [place] | | [facility] | | [address] [place] [place], [place] [address] | | [facility] | | | | OPERATION RECORD | | | | Med Rec No.: [id number] Date: 04/06/98 | | | | Name: Con Kavon Morris | | | | | | ATTENDING SURGEON: | | Galo Arora M.D. | | Museum Registrar, | | Division of Plastic & | | Reconstructive Surgery | | GOGGLES ASSEMBLER(S): | | Barry Fofana M.D. | | [...] | | Galo Arora M.D. | | Museum Registrar, | | Division of Plastic & | | Reconstructive Surgery | | WOJCIECH/pita | | | | P | | C: 05/12/98 lv | | cc: | | | + + documented in this encounter Visit Diagnoses Not on filedocumented in this encounter"
--- OUTSIDE RECORDS SUMMARY | ~2019-09-27 | XMS | Encounter Summary ---
Demographics + + + | Address | [address] | | | [place] [address] | + + + | Home Phone [...] [place] | | | | | [address] | | + + + + + Care Team Providers + +------+ + | Care Restaurant Recruiter Name | Role | Phone | [...] [address] | | | | | | [place], [place] | | | | | | [address] | | | | | | [phone] | | | +--------+ + + + [...] as of this encounter Progress Notes Interface, Knifeman In - 12/25/2006 5:00 AM [place] [...] in the near future. Galo Arora M.D. Schedule Maker, Division of Plastic & Reconstructive Surgery AYDEE/alfred documented in this encounter Plan of Treatment Not on filedocumented as of this encounter Visit Diagnoses Not on filedocumented in this encounter"
--- OUTSIDE RECORDS SUMMARY | ~2019-09-27 | XMS | Encounter Summary ---
Demographics + + + | Address | [address] | | | [place] [address] | + + + | Home Phone [...] [place] | | | | | [address] | | + + + + + Care Team Providers + +------+ + | Care Mathematician Research Name | Role | Phone | [...] | | | [facility], [address] | | | | | | [place], [place] | | | | | | [address] | | | | | | [phone] | | | +--------+ + + + [...] of this encounter Progress Notes Interface, Residential Director In - 01/22/2007 3:04 AM PST CLINIC DATE: 06/07/97 NEUROLOGY CLINIC HISTORY OF PRESENT ILLNESS: Mr. Andujar is a 56 year-old male who is being evaluated in the Clinic for problems with balance and tremulousness of both upper extremities. He has been referred to this Clinic by Dr. Valles from [place], [place], and has also previously undergone extensive evaluations in the Neurosurgical Clinic and at Vascular Surgery at [facility]. His most recent hospitalization to [facility] was December 28, 1996, when he [...] evaluation in the Pain Management Clinic at [facility] and previous trials of Neurontin and mexiletine hydrochloride apparently appears to have been unsuccessful. Shortly following his December hospitalization at [facility], Mr. Andujar apparently became comatose in January from an accidental overdose of Darvon for which he was admitted to [facility] in [place], [place]. The details pertaining to this hospitalization are currently not available but as per Mr. Andujar, he was in a coma for a six day period and upon recovery noted tremulousness of both upper extremities, worse on his left than on his right. Prior to his hospitalization at [facility] and following his discharge from [facility], he apparently was ambulating with crutches [...] Mr. Andujar specifically denies impairment of hand tile edger, impaired strength in either upper extremity or [...] currently lives in a Foster Home in [place], [place]. 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 He currently smokes one-half qmnr-vzo-wbq since age 23. Denies current alcohol use [...] procedures for pain relief. Michelle Landon M.D. Senior It Recruiter, Neurology GN:fermin C: 06/28/97 cc: RUBIA VALLES MD [address] [facility] [address] Alina Moise M.D. Professor and Operational Communication Chief, Division of Neurosurgery Robert Carlson M.D. Professor, Vascular Surgery documented in this encounter Plan of Treatment Not on filedocumented as of this encounter Visit Diagnoses Not on filedocumented in this encounter"
--- OUTSIDE RECORDS SUMMARY | ~2019-09-27 | XMS | Encounter Summary ---
Demographics + + + | Address | [address] | | | [place] [address] | + + + | Home Phone [...] Providers + +------+ + | Care Poultry And Fish Butcher Name | Role | Phone | + [...] + + | 08/18/ | Refill | [facility] | Sandy Capellan | Medication Refill | | 2018 | | NEPRHOLOGY PAIGE Valadez RN | | | | | [address] | | | | | | [address] [place] | | | | | | [address] | | | | | | [phone] | | | +--------+--------+ + + + [...] S[place] | | | | | | [id number] | | | | | | | | +--------+---------+ + + + | 10/04/ | Office | Nephrology | Farrukh Acuna MD | | | 2019 | Visit | | [address] [facility] | | | | | | [address] [place], [place] | | | | | | [address] | | | | | | | [...]
--- OUTSIDE RECORDS SUMMARY | ~2019-09-27 | XMS | Encounter Summary ---
Demographics + + + | Address | [address] | | | [place] [address] | + + + | Home Phone [...] Providers + +------+ + | Care Master Police Detective Name | Role | Phone | [...] + + | 09/24/ | Telephone | [facility] | Farrukh Acuna MD | Lab Results | | 2019 | | NEPHROLOGY [place] | [address] [place] | | | | | [address] [place] | [address] [place], [place] | | | | | [address] [place], [place] | [address] | | | | | [address] | | | | | | [phone] | | | +--------+ + + + [...] S[place] | | | | | | [address] | | | | | | | | +--------+---------+ + + + | 10/04/ | Office | Nephrology | Farrukh Acuna MD | | | 2019 | Visit | | [address] [facility] | | | | | | [address] [place], [place] | | | | | | [address] | | | | | | | | +--------+---------+ + + + documented as of this encounter Visit Diagnoses Not on filedocumented in this encounter"
--- OUTSIDE RECORDS SUMMARY | ~2019-09-27 | XMS | Encounter Summary ---
Demographics + + + | Address | [address] | | | [place] [address] | + + + | Home Phone [...] Team Providers + +------+ + | Care Western Philosophy Professor Name | Role | Phone | [...] + + | 09/01/ | Telephone | [facility] | Farrukh Acuna MD | Other | | 2019 | | NEPRHOLOGY [place]GBY | [address] | | | | | [address] | [address] [place], [place] | | | | | [address] [place], [place] | [address] | | | | | [address] | | | | | | [phone] | | | +--------+ + + + [...] S[place] | | | | | | [address] | | | | | | | | +--------+---------+ + + + | 10/04/ | Office | Nephrology | Farrukh Acuna MD | | | 2018 | Visit | | [address] [facility] | | | | | | [facility] | | | | | | [address] | | | | | | | | +--------+---------+ + + + documented as of this encounter Visit Diagnoses Not on filedocumented in this encounter"
--- OUTSIDE RECORDS SUMMARY | ~2019-09-27 | XMS | Encounter Summary ---
Demographics + + + | Address | [address] | | | [place] [address] | + + + | Home Phone [...] [place] | | | | | [address] | | + + + + + Care Team Providers + +------+ + | Care Maintenance Associate Name | Role | Phone | [...] Note | | 2000 | Visit-Trans | [address] [facility] | [phone] | | | | [address] | [address] | | | | | | [place], [place] | | | | | | [address] | | | +--------+ + + + [...] recommend that he see one of our instructional services specialist for further evaluation, and he did appear interested in doing that. 2. Referral to Dr. Willis in Orthopedics. Yuriy Huang M.D. shellfish dredge operator HOSEAL / [id number] / [id number] / [id number] / [id number] C: 01/23/2001 nw documented in this encounter Plan of Treatment Not on filedocumented as of this encounter Visit Diagnoses Not on filedocumented in this encounter"
--- OUTSIDE RECORDS SUMMARY | ~2019-09-27 | XMS | Encounter Summary ---
Demographics + + + | Address | [address] | | | [place] [address] | + + + | Home Phone [...] [place] | | | | | [address] | | + + + + + Care Team Providers + +------+ + | Care Flour Blender Name | Role | Phone | [...] | | | | | | [place], | | | | | | [place] [address] | | | | | | [phone] | | | +--------+ + + + [...] as of this encounter Discharge Summaries Interface, Cash Analyst In - 02/05/2007 1:03 AM PST [address] [address] [facility] MEDICAL SUMMARY OF HOSPITALIZATION Med Rec No.: [id number] Admission Date: 12/28/96 Name: Kavon Andujar Discharge Date: 01/03/97 STAFF PHYSICIAN: Robert Carlson M.D. Professor, Vascular Surgery PRINCIPAL FINAL DIAGNOSIS: Osteophyte of left jjivj-qza-pmhh amputation stump. ADDITIONAL DIAGNOSES: Phantom pain. PRINCIPAL PROCEDURE: Revision of left abkix-cld-iynb amputation stump and excision of left stump osteophyte. 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 Since then he has had pain in the stump. On a computed tomography (CT) scan, it was noted that he had a large bone spur and a cyst in his stump site. HOSPITAL COURSE: The patient was admitted on December 28 and underwent revision of his left yuvdb-ehh-nwgi amputation stump with excision of his left [...] Normal. 3. DIET: Normal. Nick Noriega M.D. Cooler Conveyor Loader, General Surgery Robert Carlson M.D. Professor, Vascular Surgery DOMINIC/jc A cc: RUBIA KNAPP MD [address] [facility] [address] documented in this encounter Plan of Treatment Not on filedocumented as of this encounter Visit Diagnoses Not on filedocumented in this encounter"
--- OUTSIDE RECORDS SUMMARY | ~2019-09-27 | XMS | Encounter Summary ---
Demographics + + + | Address | [address] | | | [place] [address] | + + + | Home Phone [...] Providers + +------+ + | Care Supervisor Residential Name | Role | Phone | + +------+ + | Rahul Silva MD | PCP | Unavailable | + +------+ + Encounter Details +--------+---------+ + + + | Date | Type | Department | Care Team | Description | +--------+---------+ + + + | 07/26/ | Office | [facility] | Farrukh Acuna MD | Stage 5 chronic | | 2019 | Visit | NEPHROLOGY [place] | [address] [place] | kidney disease not | | | | [address] | [address] [place], [place] | on chronic dialysis | | | | [address] | [address] | (HCC) (Primary Dx); | | | | [place], [place] | | Edema of lower | | | | [address] | | extremity; Tobacco | | | | [phone] | | dependence syndrome; | | | [...] Also: I see no need for acute HEARING IMPAIRED ITINERANT TEACHER. I see no need to send him [...] 05/31/19 1232 Encounter Date: 05/31/2019 Status: Signed Process Control Specialist: Farrukh Acuna MD (Physician) Patient Active [...] 10/2016 with severe pneumonia, severe ZEKE; needed HEARING IMPAIRED ITINERANT TEACHER for ~5 weeks b efore renal function recovery mid 12/2016. He was admitted to [facility] for 3 nights in July [...] 19.5 (A) 05/27/2019 LABPROT 2,445.6 (A) 03/01/2019 [id number] 30 10/08/2018 Assessment: Mr. Andujar is a 78 y.o. male patient with stage IV CKD on a background of diabetes & hypert ension and recent hospitalization for C-diff and hehydration. The most likely pathology here is that of diabetic nephropathy +/- hypertensive nephrosclerosis/arteriolosclerosis. He was hospitalized in 10/2016 with severe pneumonia, severe ZEKE; needed HEARING IMPAIRED ITINERANT TEACHER for ~5 weeks b efore renal function [...] Also: I see no need for acute HEARING IMPAIRED ITINERANT TEACHER. I see no need to send him [...] [place] | | | | | | [address] | | | | | | | | +--------+---------+ + + + | 10/04/ | Office | Nephrology | Farrukh Acuna MD | | | 2018 | Visit | | [address] [facility] | | | | | | [address] [place] | | | | | | [address] | | | | | | | [...]
--- OUTSIDE RECORDS SUMMARY | ~2019-09-27 | XMS | Encounter Summary ---
Demographics + + + | Address | [address] | | | [place] [address] | + + + | Home Phone [...] Providers + +------+ + | Care Superintendent Radio Communications Name | Role | Phone | [...] + + | 09/07/ | Telephone | [facility] | Sandy Gomez, | Surgery Appointment | | 2019 | | VASCULAR SURGERY | RN | | | | | [address] | | | | | | [place], [place] | | | | | | [address] | | | | | | [phone] | | | +--------+ + + + [...] [place] | | | | | | [address] | | | | | | | | +--------+---------+ + + + | 10/04/ | Office | Nephrology | Farrukh Acuna MD | | | 2019 | Visit | | [address] [facility] | | | | | | [address] [place], [place] | | | | | | [address] | | | | | | | | +--------+---------+ + + + documented as of this encounter Visit Diagnoses Not on filedocumented in this encounter"
--- OUTSIDE RECORDS SUMMARY | ~2019-09-27 | XMS | Encounter Summary ---
Demographics + + + | Address | [address] | | | [place] [address] | + + + | Home Phone [...] | | | ([facility]) | | | | | | | [...] + | 09/10/ | Surgery | [facility] | Brian Orosco MD | INSERTION AV FISTULA | | 2019 | [facility] | [address] | (Right BBF) | | | | OPERATING ROOM [address] | [place] | | | | | [place] | [address] | | | | | [place] | [phone] | | | | | [address] | | | | | | [phone] | | | +--------+---------+ + + + [...] shunt, please contact your ph ysician at [phone]. Discharge instructions for Diagnostic Imaging sedation patients [...] . For any severe symptoms, please call [phone] or report to your nearest Emergency Department. Acetaminophen; Hydrocodone tablets or capsules Brand Names: Anexsia, Lorcet, Lorcet HD, Lorcet Plus, Lortab, [place], Verdrocet, Vicodin, Vi codin ES, Vicodin HP, [...] information carefully each time. Talk to your service rig operator regarding the use of this medicine in children. Special care may be needed. What side effects may I notice from receiving this medicine? Side effects that you should report to your doctor or health landcare facilitator as soon as p ossible: allergic reactions [...] attention (report to your doctor or health landcare facilitator if they continue or are bothersome): constipation [...] official disposal site. Contact the [facility] at [phone] or your [facility] government to find a site. [...] this medicine? Tell your doctor or health landcare facilitator if your pain does not go away, [...] pharmacist, or health care provider. Copyright 2019 [employer] Arteriovenous (AV) Fistula for Dialysis An AV [...] cuts, scrapes, or blows. Date Last Reviewed: 12/01/201619993840-3454 [employer]. [address] [place] [address], [place] [address]. All righ ts reserved. This information is [...] | | | | | ([facility]), Secondary | | | | | | | hyperparathyroidism | | | | | | | ([facility]) | | | | [...] Progress Notes Leana Pimentel RN - 09/10/2019 9885 PDTDischarge instructions (per AVS) explained and discussed with patient and family (patient's daughter-sona). Discussed precautions post-fis vitaly creation, precautions post-anesthesia, signs and symptoms of surgical site incision, he samuel bleeding, incision care, dressing care, and signs and symptoms of blood clots and blood clots prevention. Prescription for Shirleysburg given and side effects were explained. Patient stat es that he also takes oxycodone at home; patient and his family were educated about taking o xycodone or Shirleysburg only and not both. OTC Tylenol intake [...] [place] | | | | | | [id number] | | | | | | | | +--------+---------+ + + + | 10/04/ | Office | Nephrology | Farrukh Acuna MD | | | 2018 | Visit | | [address] [facility] [address] | | | | | | [address] [place] | | | | | | [address] | | | | | | | [...] Testing | 65 - 99 mg/dL | [facility] | | | POC | performed at [facility];[address] | | LABORATORY | | | | [address];[place] | | | | | | [address] | | | | + + + + + + + + | Specimen | + + | | + + + + + + + | Performing | Address | City/State/Zipcode | Phone Number | | Organization | | | | + + + + + | [facility] | [address] | [place] [address] | [phone] | + + + + + POC Glucose (09/10/2019 12:13 PDT) + + + + + + | Component | Value | Ref Range | Performed | Pathologist | | | | | At | Signature | + + + + + + | Glucose, | 150 (H)Comment: Testing | 65 - 99 mg/dL | [facility] | | | POC | performed at [facility];[address] | | LABORATORY | | | | [address];[place] | | | | | | [address] | | | | + + + + + + + + | Specimen | + + | | + + + + + + + | Performing | Address | City/State/Zipcode | Phone Number | | Organization | | | | + + + + + | [facility] | [address] | [place] [address] | [phone] | + + + + + documented [...] One week or | | | longer, obgjor-lvp-vxmxo use of | | | at least [...]
--- OUTSIDE RECORDS SUMMARY | ~2019-09-27 | XMS | Encounter Summary ---
Demographics + + + | Address | [address] | | | [place] [address] | + + + | Home Phone [...] Team Providers + +------+ + | Care Putty Mixer And Applier Name | Role | Phone | [...] | | | | disease not | [place], | [place], [place] | | | | | on chronic | [place] [address] | [address] | | | | | dialysis | Phone: | Phone: | | | | | ([facility]) | [phone] | [phone] | | | | | Hypertension | Fax: | Fax: | | | | | , | [phone] | [phone] | | | | | unspecified | | | | | | | type | | | + + + + + + + Encounter Details +--------+ + + + + | Date | Type | Department | Care Team | Description | +--------+ + + + + | 07/28/ | Orders Only | [facility] | Farrukh Acuna MD | Iron deficiency | | 2019 | | NEPHROLOGY [place] | [address] | (Primary Dx); Anemia | | | | [address] [place] | [address] [place], [place] | of chronic kidney | | | | [address] [place], [place] | [address] | failure, stage 5 | | | | [address] | | ([facility]); Stage 5 | | | | [phone] | | chronic kidney | | | | | | disease not on | | | | | | chronic dialysis | | | | | | ([facility]); Secondary | | | | | | hyperparathyroidism | | | | | | ([facility]); Hypertension, | | | | [...] [place] | | | | | | [address] | | | | | | | | +--------+---------+ + + + | 10/04/ | Office | Nephrology | Farrukh Acuna MD | | | 2019 | Visit | | [address] [facility] [place] | | | | | | [address] [place], [place] | | | | | | [address] | | | | | | | [...] | until 07/28/2020 | | | | ([facility]) Hypertension, | | | | | unspecified [...] chronic dialysis | | | | | ([facility]) Hypertension, | | | | | unspecified type | | + +--------+ + + | Parathyroid Hormone, Intact | Routin | Stage 5 chronic | Expected: | | | e | kidney disease not | 09/27/2019, Expires: | | | | on chronic dialysis | 07/28/2020 | | | | (HCC) Secondary | | | | | hyperparathyroidism | | | | | ([facility]) Hypertension, | | | | | unspecified type | | + +--------+ + + + +--------+ + + | Name | Priori | Associated Diagnoses | Order Schedule | | | ty | | | + +--------+ + + | Ambulatory Referral to [facility] | Routin | Stage 5 chronic | [...]
--- OUTSIDE RECORDS SUMMARY | ~2019-09-27 | XMS | Encounter Summary ---
Demographics + + + | Address | [address] | | | [place] [address] | + + + | Home Phone [...] Providers + +------+ + | Care Nuclear Plant Equipment Operator Name | Role | Phone [...] | | | | | Procedures | [address] | | | | | | VAS Arm | Phone: | | | | | | Bilateral | [phone] | | | | | | Mapping For | Fax: | | | | | | Dialysis | [phone] | | +--------+--------+ + + + + [...] | | ([facility]) | [place] | | | | | | Procedures | [address] | | | | | | VAS Arm | Phone: | | | | | | Bilateral | [phone] | | | | | | Mapping For | Fax: | | | | | | Dialysis | [phone] | | +--------+--------+ + + + + Encounter Details +--------+ + + + + | Date | Type | Department | Care Team | Description | +--------+ + + + + | 08/20/ | Hospital | [facility] | Trisha Conner, MERY | 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 | VASCULAR SURGERY | [address] | renal disease) ([facility]) | | | | ULTRASOUND [address] | [address] [place], [place] | | | | | [address] | [address] | | | | | [place], [place] | | | | | | [address] | | | | | | [phone] | | | +--------+ + + + [...] | | | | ([facility]), Secondary | | | | | | | hyperparathyroidism | | | | | | | ([facility]) | | | [...] | | | | | [address] [place], [place] | | | | | | [address] | | | | | | | | +--------+---------+ + + + | 10/04/ | Office | Nephrology | Farrukh Acuna MD | | | 2018 | Visit | | [address] [email or web address] [address] | | | | | | [address] [place] | | | | | | [address] | | | | | | | [...] e | 13:58 PDT | renal disease) ([facility]) | procedure are in the | | [...]
--- OUTSIDE RECORDS SUMMARY | ~2019-09-27 | XMS | Encounter Summary ---
Demographics + + + | Address | [address] | | | [place] [address] | + + + | Home Phone [...] Providers + +------+ + | Care Medical Accounts Receivable Specialist Name | Role | Phone | + +------+ + | Rahul Silva MD | PCP | Unavailable | + +------+ + Encounter Details +--------+ + + + + | Date | Type | Department | Care Team | Description | +--------+ + + + + | 09/07/ | Preadmit | [facility] | Brian Orosco MD | | | 2019 | Visit | CENTER PREADMIT | [address] | | | | | CLINIC [address] | [address] | | | | | [address] [place], [place] | [address] | | | | | [address] | [phone] | | | | | [phone] | | | +--------+ + + + [...] for the 09/07/19 encounter (Preadmit Visit) with [facility] ROOM 4 Medication Sig Instructions acyclovir [...] to check-in desk and are in the [facility] waiting room. AttachmentsThe following attachments cannot be sent through Care Everywhere.Hemodialysis Ac cess, Creating a (Thai)Dialysis, Arteriovenous (AV) Fistula for (Thai)documented in is encounter Plan of Treatment +--------+---------+ [...] [place] | | | | | | [address] | | | | | | | | +--------+---------+ + + + | 10/04/ | Office | Nephrology | Farrukh Acuna MD | | | 2018 | Visit | | [address] [facility] [address] | | | | | | [address] [place] | | | | | | [address] | | | | | | | [...] | | | | | | MDRD IDTN traceable | | | | | | equation.Testing | | | | | | performed at [facility], [address] | | | | | | [facility], | | | | | | [place] [address] | | | | + + + + + + + + | Specimen | + + | Blood | + + + + + + + | Performing | Address | City/State/Zipcode | Phone Number | | Organization | | | | + + + + + | [facility] | [address] | [place] [address] | [phone] | + + + + + CBC [...] | | | | | [place] [address] | | | | + + + + + + + + | Specimen | + + | Blood | + + + + + + + | Performing | Address | City/State/Zipcode | Phone Number | | Organization | | | | + + + + + | [facility] | [address] | [place] [address] | [phone] | + + + + + ECG [...]
--- OUTSIDE RECORDS SUMMARY | ~2019-09-27 | XMS | Encounter Summary ---
Demographics + + + | Address | [address] | | | [place] [address] | + + + | Home Phone [...] [place] | | | | | [address] | | + + + + + Care Team Providers + +------+ + | Care Tank Car Inspector Name | Role | Phone | [...] Note | | 2000 | Visit-Trans | [address] [facility] | [phone] | | | | [address] | [address] | | | | | | [place], [place] | | | | | | [address] | | | +--------+ + + + [...] recommend that he see one of our medical insurance coding specialist for further evaluation, and he did appear interested in doing that. 2. Referral to Dr. Willis in Orthopedics. Yuriy Huang M.D. leather skinner HOSEAL / [id number] / [id number] / [id number] / [id number] C: 01/23/2001 nw documented in this encounter Plan of Treatment Not on filedocumented as of this encounter Visit Diagnoses Not on filedocumented in this encounter"
--- OUTSIDE RECORDS SUMMARY | ~2019-09-27 | XMS | Encounter Summary ---
Demographics + + + | Address | [address] | | | [place] [address] | + + + | Home Phone [...] [place] | | | | | [address] | | + + + + + Care Team Providers + +------+ + | Care Gas Line Installer Name | Role | Phone [...] [id number] | | | | | | [place], [place] | | | | | | [address] | | | | | | [phone] | | | +--------+ + + + [...] | + + + + + | [facility] | [address] | [place] [address] | | | PATHOLOGY | [address] [...] | + + + + + | [facility] | [address] | [place] [address] | | | PATHOLOGY | [address] | | | + + + + + documented in this encounter Visit Diagnoses Not on filedocumented in this encounter"
[~2019-09-27 12:21] MED LIST changes: +PROVENTIL HFA6.7 GM INH; -SLOW-MAG71.5 MG PO
--- OUTSIDE RECORDS SUMMARY | 2019-09-27 12:26 | XMS ---
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 Off Events No recent Security Events currently on file CRITERIA MET - [facility]Rodney Van PHONE: [phone] Herminia Rivera Mri Supervisor/Marine Water Tender 08/31/2018-Current PHONE: [phone] Herminia Rivera Primary Care 08/31/2018-Current PHONE: [phone] Domenic Gutiérrez Case or Collection Systems Modeler Current PHONE: [phone] HARDIK Van Primary Care 08/31/2015-Rodney COYNE PHONE: Unknown Agapito has no Care Guidelines for this patient. Care History Medical/Surgical 05/28/2018 [facility] - Patient currently sees hi ranger operator Dr Acuna and patient has last seen [...] ED please contact Community Health WorkerLizzy at [phone]. These are guidelines and the provider should exercise clinical judgment when providing care. 07/25/2017 [facility] HISTORY: COPD, DMII, HTN, CVA X3, KIDNEY FAIL STAGE 3 WITH SHORT TERM DIALYSIS, CPAP USE SURGERY HISTORY: GILBERT ESPINAL, PANCRETIC TUMOR REMOVAL E.DLedy VISIT COUNT (12 MO.) 3 JONY Amado TOTAL 3 NOTE: Visits indicate total known visits. 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 - 1 Type 2 diabetes mellitus w diabetic chronic kidney disease - Prsnl hx of TIA (TIA), and cereb infrc w/o resid deficits - 1 Chronic kidney disease, stage 4 (severe) - Other chcf (current) drug therapy - Chronic obstructive pulmonary disease w (acute) exacerbation - Shortness of breath - 1 Hypertensive chronic kidney disease w stg 1-4/unsp chr kdny 02/15/2019 22:21 [facility] [place] TYPE: Emergency COMPLAINT: - CONSTIPATED INPATIENT VISIT TRACKING (12 MO.) 02/15/2019 22:22 [facility] [place] TYPE: Observation COMPLAINT: - STERCORAL COLITIS DIAGNOSES: - prison (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 of antithrombotics/antiplatelets - 1 Hypertensive chronic kidney disease w stg 1-4/unsp chr kdny - Dependence on wheelchair - Nicotine dependence, unspecified, uncomplicated - Obstructive sleep apnea (adult) (pediatric) - 1 Chronic kidney disease, stage 4 (severe) - 1 Type 2 diabetes mellitus w diabetic chronic kidney disease - Constipation, unspecified - Unspecified abdominal pain - Prsnl hx of TIA (TIA), and cereb infrc w/o resid deficits - prison (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 of insulin - Accidental pnctr \T\ lac of a dgstv sys org dur dgstv sys proc - Chronic obstructive pulmonary disease, unspecified - Noninfective gastroenteritis and colitis, unspecified - Gastro-esophageal reflux disease without esophagitis - Other superintendent terminal (current) drug therapy - Other chronic pain - Acquired absence of left leg above knee [email or web address]
[2019-09-27] MEDS ORDERED: FERROUSUL325 MG PO (13:56)
--- NOTE | 2019-09-27 17:20 | NUR ---
79 YEAR OLD MALE PATIENT ADMITTED TOCCU FROM ED VIA STRETCHER UNDER DR Ledy GAMEZ WITH DX OF LLL PNEUMONIA. HAS LONG HX OF COPD. DENIES CHEST PAIN. HAS BEEN WITH INCREASED SHORTNESS OF BREATH OVER LAST COUPLE OF DAYS. RECENT FISTULA FOR CRF 09/16/19. SURGICAL SITE HEALING. NO SIGN OF INFECTION. ADMISSION STARTED. DAUGHTER IS IN ROOM.
--- NOTE | 2019-09-27 17:40 | NUR ---
UP TO COMMODE WITH ASSIST TO VOID 190 ML OF CONCENTRATED. THEN BACK TO BED. SITTING AT BEDSIDE TO TAKE DINNER.
--- NOTE | 2019-09-27 18:10 | NUR ---
OXYCODONE 15 MG PO GIVEN FOR LEFT STUMP PAIN. ROUTINE MEDICATIONS GIVEN AT THIS TIME ALSO.
--- NOTE | 2019-09-27 18:30 | NUR ---
TOOK DINNER WELL.
--- NOTE | 2019-09-27 18:40 | NUR ---
NEB TREATMENT GIVEN PER RT C/O SHORTNESS OF BREATH.
--- NOTE | 2019-09-27 19:13 | NUR ---
REPORT TO NEXT SHIFT.
--- NOTE | 2019-09-27 19:30 | NUR ---
PATIENT UP TO BSC. PATIENT ATTEMPTING TO TRANSFER WITHOUT ASSIST AND USING BEDSIDE TABLE. DISCUSSED SAFETY ISSUES WITH THIS AND PATIENT VERBALIZED HIS EXTREAM FRUSTERATION. "JUST GET ME A WHEELCHAIR SO I CAN DO IT MYSELF". SAFETY CONCERNS FOR FALL AND PROTECTION OF IV LINES DISCUSSED WITH PATIENT. HE IS AGREEABLE TO HAVE STAFF IN FOR TRANSFER LONG HE CAN DO MOST OF THE TRASNFER WITHOUT ASSISTANCE. PATIENT IS ABLE TO STAND PIVOT TO BSC. VOID 100ML CLEAR URINE. RETURNED TO BED. BIPAP IN PLACE. PATIENT DESAT WITH TRANSFER AND QUICKLY RECOVERS. 6L O2 BLEED IN. PATIENT DENIES ANY OTHER NEEDS.
--- NOTE | 2019-09-27 21:00 | NUR ---
PATIENT UP TO BSC, VOIDED 75 ML. PATIENT REPORTS THIS HIS NORMAL DUE TO CHONIC KIDNEY DISEASE. LUNGS ARE COARSE WITH RALES NOTED IN NICOLAS BASES AND DORETHA. PATIENT REQUIRING 6L NC, REPORTS FEELING MINIMALLY SHORT OF BREATH. NO GI CONCERNS. PAIN IN LEFT STUMP NOTED, DISCUSSED OPTIONS FOR PAIN CONTROL. BLOOD GLUCOSE CHECKED, REQUIRED 1 UNIT PER SLIDING SCALE. IV FLUIDS PER ORDER, SITE WNL. PATIENT RESTING IN BED,NC IN PLACE. WILL CHANGE TO BIPAP WHEN READY FOR SLEEP.
--- NOTE | 2019-09-27 21:56 | EKG ---
[facility] [address] [facility] [place] [address] Signed Normal sinus rhythm Low voltage QRS Borderline ECG When compared with ECG of 03-MAR-2019 09:15, No significant change was found Confirmed by SAHIL GAMEZ MD ([id number]) on 09/27/2019 9:56:00 PM Electronically Signed By: SAHIL GAMEZ MD 09/27/19 2156 PATIENT NAME: ZAVALAPORFIRIO OSWALDO Electrocardiogram DATE OF : 40 PHYSICIAN: SAHIL GAMEZ MD REPORT #: [id number] REPORT IS CONFIDENTIAL AND NOT TO BE RELEASED WITHOUT AUTHORIZATION
--- NOTE | 2019-09-27 22:00 | NUR ---
PATIENT UP TO BSC WITH TROUBLE DISPATCHER SINTA ASSIST. PATIENT REPORTS 10/10 PAIN IN LEFT STUMP. PRN OXY PROVIDED PER ORDER.
--- NOTE | 2019-09-27 22:37 | NUR ---
HELEPED PATIENT USE THE BEDSIDE COMMODE. PATIENT IS BACK IN BED. CALL LIGHT WITHIN REACH.
--- NOTE | 2019-09-28 | NUR ---
PATIENT SLEEPING SOUNDLY. BIPAP IN PLACE. VS STABLE. PATIENT APPEARS TO BE HAVING NIGHT TERRORS, TWITCHING IN SLEEP AND ATTEMPTING TO TALK WITH MASK IN PLACE. PATIENT DOES NOT WAKE WITH LIGHT ON AND RN SPEAKING LOUDLY. ALLOWED PATIENT TO REST.
--- NOTE | 2019-09-28 02:00 | NUR ---
PATIENT CONTINUES TO SLEEP SOUNDLY, MORE CALMLY THAN PRIOR. BIPAP IN PLACE. VS STABLE. ALLOWED PATIENT TO REST.
--- NOTE | 2019-09-28 04:11 | NUR ---
PATIENT UP TO BSC. REPORTS FEELING "LIKE CRAP" AND COMPLAINS OF BEING COLD AND SOB. EXPIRTORY WHEEZES HEARD THROUGHOUT LUNGS. WARM BLANKET PROVIDED. RT CALLED FOR PRN NEB PER PATIENT REQUEST.
--- NOTE | 2019-09-28 06:14 | NUR ---
PATIENT UP TO BSC WITH ASSIST FROM JESS CEVALLOS.
--- NOTE | 2019-09-28 07:30 | NUR ---
report recieved. C/O LEFT STUMP PAIN. TALKED WIH PATIENT REGARDING THIS. WAS MEDICATED WITH OXYCODONE AROUND 0600 THIS AM. IS CLAM AT THIS TIME. IVF INFUSING AT 75 ML HR. O2 AT 6 PER NC.
--- NOTE | 2019-09-28 08:15 | NUR ---
sitting at bedside. ACCUCHECK-119. PATIENT IS TALKING ABOUT HIS RESTLESS NIGHT. IS FRUSTRATED REGARDING NIGHT TERORS. TALKED WITH PATIENT ABOUT POC, IS UNDERSTANDING.
--- NOTE | 2019-09-28 09:00 | NUR ---
TOOK COFFEE ONLY FOR BREAKFAST, ROUTINE MEDICATIONS GIVEN, CONTINUE TO SIT AT BEDSIDE.
--- NOTE | 2019-09-28 10:10 | NUR ---
OXYCODONE 15 MG PO GIVEN FOR LEFT STUMP PAIN. PATIENT CONTINUE TO SIT AT BEDSIDE. O2 TO 4 L NC.
--- NOTE | 2019-09-28 11:00 | NUR ---
Met with Mehran in his room. He has labored breathing during our conversation with [address] States he needs a new cpap machine as his is old and needs new parts. Lives with his daughter, Charlotte, who is a state paid caregiver for him. States he lives in low income handicap accessable apartment at [facility]. Daughter provides care for ADLS. Denies needs other than new cpap.
--- NOTE | 2019-09-28 11:30 | NUR ---
SPONGE BATH GIVEN. REFUSED SHOWER. IVF PATENT. HAS BEEN UP TO COMMODE WITH ASSIST SEVERAL TIMES TO VOID. DOES WELL WITH TRANSFERS WITH ASSIST OF ONE STAFF MEMBER. DAUGHTER HERE.
--- NOTE | 2019-09-28 12:24 | NUR ---
SITTING AT BEDSIDE TO EAT LUNCH. ASSESSMENT UNCHANGED. DENIES SHORTNESS OF BREATH.
--- NOTE | 2019-09-28 13:30 | NUR ---
REPORT TO MED-SURG.
--- NOTE | 2019-09-28 14:10 | NUR ---
OXYCODONE 15 MG AND LACTULOSE 10 MG PO GIVEN. TO W/C FOR TRANSFER TO MEDICAL FLOOR.
--- NOTE | 2019-09-28 14:30 | NUR ---
PT ARRIVED TO UNIT VIA PERSONAL WHEELCHAIR. PT ALERT AND ORIENTED. DENIES SOB OR OTHER CONCERNS STATES. JOKES "CAN YOU GET ME A NEW BODY?" NOTED LEFT ABOVE THE KNEE AMPUTATION, SKIN INTACT. LUNGS DIMINISHED AND COURSE THROUGHOUT, NO COUGH NOTED AT THIS TIME. PT RECIEVING 4L O2 VIA NC. PT EDUCATED ON POC. CALL LIGHT WITHIN REACH.
--- NOTE | 2019-09-28 15:00 | NUR ---
PT SITTING UP IN WHEELCHAIR. TALKING CALMLY WITH THIS RN, LAUGHING AT JOKES, ETC, NO OBVIOUS SIGNS OF DISTRESS. REPORTS "16/09" PAIN IN LEFT STUMP. MEDICATED WITH 15MG PRN OXY PER EMAR. IT WAS NOTED AFTER ADMINISTRATION THAT HEIDI Cash RN HAD ADMINISTERED 15MG OXY ONLY APPROX 30MIN PRIOR. CHARGE NURSE MYRNA AND DR. GAMEZ NOTIFIED, NO NEW ORDERS. WILL MONITOR PT CLOSELY. PT 1PA PIVOT TRANSFER TO HOSPITAL BED FROM WHEELCHAIR. CALL LIGHT WITHIN REACH.
--- NOTE | 2019-09-28 16:29 | NUR ---
PT AWAKE, ALERT AND ORIENTED. CALLED FOR ASSISTANCE TO RESTROOM. PT 1PERSON MINIMAL ASSIST, PIVOT TRANSFER TO WHEELCHAIR. PT STEERED INDEPENDENTLY INTO RESTROOM THEN PIVOT TRANSFER AGAIN TO TOILET. PT BACK TO BED. RESP 18. CALL LIGHT WITHIN REACH.
[2019-09-28] MEDS ORDERED: ONDANSETRON ODT8 MG PO (17:18)
--- NOTE | 2019-09-28 18:04 | NUR ---
PT DAUGHTER OLIVER WAS ASKING ABOUT PT BELONGINGS. WAS TOLD WE WOULD CHECK WITH CCU. ONLY APPROX 30 MIN HAD PASSED THAT SHE CAME OUT OF ROOM VERY OBVIOUSLY UPSET ASKING AGAIN WHERE BELONGINGS WERE. PT BELONGINGS WERE IN CCU AND BROUGHT OVER TO PT'S ROOM IMMEDIATELY. SHORTLY AFTER DAUGHTER CAM OUT OF ROOM AGAIN VERY UPSET ASKING WHY PT WAS NOT ON CONTINUOUS PULSE OX. STATED "HE'S NEVER HAD TO BE ON OXYGEN LIKE THIS BEFORE AND HAS NEVER HAD THIS PNUEMONIA AND BEEN SICK LIKE THIS. I JUST DON'T UNDERSTAND WHY HIS OXYGEN ISN'T BEING MONITORED. HE BECOMES SHORT OF BREATH ANY TIME HE DOES ANYTHING." EXPLAINED THAT THE ORDER TO DISCONTINUE THE CONTINUOUS PULSE OXIMETRY HAD ALREADY BEEN DISCUSSED WITH DR. GAMEZ AND THERE WAS NO NEED FOR IT AT THIS TIME. DAUGHTER OBVIOUSLY UPSET WALKED BACK TO PTS ROOM. ATTEMPTED SEVICE RECOVERY. REASSURED HER THAT PT'S O2 SATS WOULD BE MONITORED AT LEAST EVERY 4 HOURS AND MORE FREQUENTLY NEEDED.
--- NOTE | 2019-09-28 18:42 | NUR ---
PT ASSISTED BACK TO BED. PT SHORT OF BREATH, DAUGHTER/CAREGIVER REQUESTED HE HAVE A NEB TX. R.T. CALLED JUANPABLO VERBALIZED SHE IS UNABLE TO ADMINISTER AT THIS TIME, JUANPABLO ASKED THIS RN TO ADMINISTER THE 1999 SCHEDULED NEB TX.
--- NOTE | 2019-09-28 20:57 | NUR ---
PATIENT'S DAUGHTER HAS JUST CALLED TWICE TO MAKE SURE HER FATHER IS DOING OK AND GETTING SET UP ON HIS CPAP. I ASSURED HER THAT HE WOULD BE CHECKED ON AT REGULAR INTERVALS AND WAS DING OK AT THISTIME, THAT I HAD INFORMED HIM SHE HAD RAUL CALLED ONCE TO CHECK ON HIM AND THAT RESPIRATORY THERAPY WAS ON THEIR WAY TO MAKE SURE HE WAS HOOKED UP TO HIS MACHINE PROPERLY FOR SLEEP. SHE THANKED ME AND SAID SHE WOULD CHECK BACK LATER.
--- NOTE | 2019-09-28 21:07 | NUR ---
PATIENT NOW RESTING QUIETLY WITH LIGHT S DOWN AND CPAP IN PLACE WITH 4L/BLEED IN. CALL LIGHT IN REACH.
--- NOTE | 2019-09-28 21:55 | NUR ---
pATIENT RESTING QUIETLY AT THIS TIME ON HIS CPAP. EYES CLOSED. RESPIRATIONS EVEN. CALL LIGHT IN REACH.
--- NOTE | 2019-09-28 23:03 | NUR ---
PATIENT RESTING QUIETLY WITH EVEN AND REGULAR RESPIRATIONS, CPCAP IN PLACE AND PATIENT'S EYES CLOSED WITH CALL LIGHT IN REACH.
--- NOTE | 2019-09-29 01:13 | NUR ---
PATIENT UP TO THE BEDSIDE COMMODE WITH 1PA AND THEN BACK TO BED AFTER VOIDING. PATIENT GOING BACK ON HIS CPAP. LEFT STUMP PAIN BACK TO 10/10 AND OXYCODONE AND TYLENOL REPEATED PO. PATIENT GOING TO TRY AND GET SOME MORE REST. CALL LIGHT IN REACH.
--- NOTE | 2019-09-29 03:54 | NUR ---
CALL LIGHT ANSWERED. 1 PA TO BEDSIDE COMMODE AND BACK TO BED.
--- NOTE | 2019-09-29 03:55 | NUR ---
PATIENT BACK TO BED AFTER GETTING UP TO THE BATHROOM 1PA TO BEDSIDE COMMODE WITH ALMA BAKER. PATIENT TRANSFERS WELL. PAIN IS CONTROLLED AT THIS TIME. CALL LIGHT IN REACH.
--- NOTE | 2019-09-29 05:16 | NUR ---
PATIENT JUST BACK TO BED AFTER GETTING UP WITH 1PA TO THE BEDSIDE COMMODE TO VOID. PATIENT'S LEFT STUMP PAIN RETURNED TO 10/10 AND OXYCODONE AND TYLENOL WERE REPEATED AGAIN AND PATIENT'S WATER GLASS FILLED. PATIENT WAS ON CPAP PART OF THE NIGHT WHILE SLEEPING WITH 4L/NC BLED IN AND 4L/NC WHEN AWAKE. PATIENT ALSO HAD HIS ATTTENDS JUST CHANGED HE GOT A LITTLE URINE ON THEM. PATIENT TRANSFERS GREAT. SITTING ON THE EDGE OF THE BED WITH CALL LIGHT IN REACH AT THIS TIME.
--- NOTE | 2019-09-29 07:32 | NUR ---
PT SITTING UP IN BED, A&OX4. PT DENIES PAIN AND OR SOB. NO REPORTED NEEDS. PERSONAL SUPPLIES AND CALL LIGHT WITHIN REACH.
--- NOTE | 2019-09-29 07:40 | NUR ---
PATIENT SITTING UP ON THE EDGE OF THE BED. PATIENT ASKS FOR PAIN MEDICINE. RN NOTIFIED. PATIENT'S BREAKFAST ORDERED. CALL LIGHT WITHIN REACH. NO OTHER NEEDS AT THIS TIME
[2019-09-29] MEDS ORDERED: SENNA-S LAXATI1 EACH PO (08:38)
--- NOTE | 2019-09-29 08:40 | NUR ---
MED REC COMPLETE
--- NOTE | 2019-09-29 09:09 | NUR ---
PATIENT UP TO BSC AND BACK TO BED, 1PA. CALL LIGHT IN REACH. NO FURTHER NEEDS AT THIS TIME.
--- NOTE | 2019-09-29 09:27 | NUR ---
PATIENT GIVEN MORNING MEDICATIONS. PATIENT REFUSED GABAPENTIN, STATED "IT GIVEN ME HALLUCINATIONS, I DON'T TAKE IT AT HOME, I DON'T WANT IT HERE." CASE MANAGEMENT IN TO SEE PATIENT.
--- NOTE | 2019-09-29 10:37 | NUR ---
CALL LIGHT ANSWERED. PATIENT USING BATHROOM. LINENS CHANGED. PATIENT BACKS TO BED. PATIENT USES WHEELCHAIR. WARM BLANKET PROVIDED. CALL LIGHT WITHIN REACH. NO OTHER NEEDS AT THIS TIME
--- NOTE | 2019-09-29 14:41 | NUR ---
Met with Mehran and his daughter Charlotte. She feels they have everything they need when he is well enough to dc home. They would like a new cpap as theirs if very old, and it is difficult to get replacement parts. It looks old and somewhat dirty. Per Charlotte it is over 5 years old. She would also like to change DME company. Informed she will need to speak with about this. Called [facility] and they state he qualifies for a new CPAP with proper documentation. Letter sent to Dr. Silva requesting Rx with proper documentation be sent to DME company of choice.
--- NOTE | 2019-09-29 17:39 | NUR ---
PT DECLINED A SHOWER TODAY.
--- NOTE | 2019-09-29 18:18 | NUR ---
PATIENT SITTING UP IN WHEELCHAIR. RN IN ROOM. VITAL SIGNS AND I&O DONE. LOW DYASTOLIC BLOOD PRESSURE. RN NOTIFIED. CALL LIGHT WITHIN REACH. NO OTHER NEEDS AT THIS TIME
--- NOTE | 2019-09-29 21:09 | NUR ---
ROUNDED CHARGE. PATIENT IS RESTING IN BED. JAROD CEVALLOS PRESENT IN THE ROOM. NO NEEDS NOTED. CALL LIGHT IN REACH.
--- NOTE | 2019-09-29 21:16 | NUR ---
PATIENT IS BACK FROM THE BATHROOM AND IN BED. DAUGHTER KELY WAS HERE AND SAID THAT AND THE PHARMACIST OKED PATIENT TO HAVE AN EXTRA 15MG OF OXYCODONE NEEDED TWICE A WEEK. I LET PATIENT AND DAUGHTER KNOW I FOUND NO SUCH ORDER, AND THEY WERE BOTH A BIT UPSET. PATIENTS IV WAS ALSO LEAKING AND HAD TO BE PULLD AND WAS INTACT. PATIENT REFUSED TO HAVE ONE PUT BACK IN. I CALLED AND HE WAS IN THE MIDDLE OF SOMETHING AND SAID HE WOULD HAVE TO CALL ME BACK. WAITING FOR RETURN CALL. PATIENT IN BED CALL LIGHT IN REACH.
--- NOTE | 2019-09-29 21:24 | NUR ---
CALLED BACK AND SAID IT IS OK TO LEAVE THE IV OUT, AND HE CONFIRMED THERE WAS NEVER AN ORDER TO GIVE AN EXTRA 15MG OF OYCODONE WHENEVER TWICE A WEEK. THE DAUGHTER KELY HAD COME TO THE MED ROOM DOOR AND KNOCKED ON IT UNTIL I HAD TO GET OFF THE PYXIS, BECAUSE SHE WANTED ME TO DOUBLE CHECK FOR THIS ORDER FOR 2 EXTRA 15MG DOSES OF OXYCODONE NEEDED. I LET HER KNOW I HAD ALREADY CHECKED 3 TIMES. KELY SAID," wELL THAT IS FUNNY AND IS JUST NOT RIGHT I WE WERE ASSURED BY AND PHARMACIST THAT THIS WOULD BE ORDERED,I'LL TALK TO TOMORROW." DAUGHTER THEN LEFT AFTER BEING SOMEWHAT LOUD WITH ME ABOUT NOT HAVING THE EXTRA DOSES.
--- NOTE | 2019-09-29 21:59 | NUR ---
PATIENT GIVEN HIS OXYCODONE FOR 10/10 LEFT STUMP PAIN. CALL LIGHT IN REACH.
--- NOTE | 2019-09-29 22:37 | NUR ---
PATIENT WAS SETTING IN HIS WHEELE CHAIR. GLASS TECHNICIAN ASSISTED PATIENT TO THE RESTROOM. AND THAN BACK TO BED, VITALS WERE TAKEN AND FRESH WATER WAS GIVEN, CALL LIGHT IN REACH. NO OTHERE NEEDS AT THIS TIME.
--- NOTE | 2019-09-29 23:19 | NUR ---
PATIENT RESTING QUIETLY ON 4L/NC, IN SEMI-FOWLERS POSITION. RESPIRATIONS ARE REGULAR AND EVEN WITH EYES CLOSED. CALL LIGHT IN REACH.
--- NOTE | 2019-09-30 01:05 | NUR ---
PATIENT STIRRING OCCASIONALLY, BUT EYES ARE CLOSED, REPIRATIONS REGULAR AND EVEN CALL LIGHT IN REACH. REMAINS ON 4L/NC IN NO VISIBLE DISTRESS.
--- NOTE | 2019-09-30 01:51 | NUR ---
PATIENT BACK IN BED AFTER USING THE BATHROOM. 1PA TO WHEELCHAIR AND THEN TO TOILET. THEN PATIENT BACK IN BED AND RT CAME AND PUT PATIENT ON CPAP FOR NOW ANYWAY. CALL LIGHT IN REACH.
--- NOTE | 2019-09-30 03:34 | NUR ---
PATIENT RESTING QUIETLY IN BED ON CPAP, PATIENT HAS NOT REQUESTED ANY MORE PAIN MEDS. EYES ARE CLOSED, RESPIRATIONS REGULAR AND EVEN. CALL LIGHT IN REACH.
--- NOTE | 2019-09-30 03:53 | NUR ---
PATIENT BACK ON HIS 4L/NC AND SITTING AT THE BEDSIDE FOR AWHILE. CPAP PLACED IN STANDBY AND RT DARRYL INFORMED.
--- NOTE | 2019-09-30 04:42 | NUR ---
PATIENT GOT OXYCODONE AND TYLENOL THE FIRST PART OF THE SHIFT FOR LEFT LEG STUMP PAIN, BUT HAS NOT ASKED FOR ANY OTHER PAIN MEDICATION TIS SHIFT. PATIENT WORE HIS 4L/NC THE 1ST PART OF THE SHIFT AND CPAP THE SECOND HALF OF THE SHIFT. PATIENT UP MULTIPLE TIMES TO PEE, AND JUST WENT TO THE RESTROOM AND IS NOW SITTING UP IN HIS WHEELCHAIR DRINKING A CUP OF COFFEE. CALL LIGHT IS IN REACH.
--- NOTE | 2019-09-30 07:15 | NUR ---
REPORT RECEIVED FROM BAN OLIVERA. PT UP TO WHEELCHAIR. PT REPORTS 09/09 PAIN "WELL IT'S AN 11" IN STUMP. SEE MAR FOR MEDICAITON GIVEN. PT DENIES NAUSEA. O2 SATURATION AT 94% ON 4L O2 BY NC. ROOM CLEANED. PT DENIES ADDITIONAL REQUESTS OR COMPLAINTS AT THIS TIME. CALL LIGHT WITHIN REACH.
--- NOTE | 2019-09-30 07:51 | NUR ---
MORNING ASSESSMENT AND MEDICATIONS DUE. LUNG SOUNDS CLEAR BUT DIMINISHED IN BASES. PT REPORT CIGARETTE CRAVINGS. NICOTENE PATCH ORDERED PER PROTOCOL AND APPLIED. PT UP TO WHEELCHAIR. CORNET AND I.S. USE DEMONTRATED (REACHES 1600 ON I.S.). MEDICATIONS GIVEN. PT STATES "MY BREATHING IS A LOT BETTER." PT AWAITING BREAKFAST. NO ADDITIONAL REQUESTS OR COMPLAINTS AT THIS TIME. CALL LIGHT WITHIN REACH.
[2019-09-30] MEDS ORDERED: CEFPODOXIME PR200 MG PO (09:22)
[2019-09-30] MEDS ORDERED: NICOTINE PATCH1 EAC1 TD (09:23)
--- NOTE | 2019-09-30 09:47 | NUR ---
THIS RN TO ROOM TO CHECK ON PT. PT SITTING ON EDGE OF BED. PT UDATED ON DISCHARGE PLAN. PT REPORS 10/10 PAIN THAT IS "ALWAYS THAT WAY, IT'S HOLDING STEADY." PT DENIES NEED FOR ADDITIONAL PAIN MEDICAITON AT THIS TIME. PT STATES HE HAS NO ADDITIONAL REQUESTS OR COMPLAINTS AT THIS TIME. CALL LIGHT WITHIN REACH.
--- NOTE | 2019-09-30 10:32 | NUR ---
PT READY FOR DISCHRAGE. DISCHARGE INSTRUCATIONS REVIEWED WITH PT. PT VERBALIZES UNDERSTANDING AND STATES HIS QUESTIONS HAVE BEEN ANSWERED. COPD GREEN/YELLOW/RED MAGENET/ZONES REVIEWED WITH PT. PT STATES HE IS IN THE GREEN ZONE. SBA WITH GETTING DRESSED. PTS BELONGINGS PACKED. PT AWAITING DAUGHTERS ARRIVAL, AND VISIT FROM [facility]. NO ADDITIONAL REQUESTS OR COMPLAINTS AT THIS TIME. PT REMAINS UP IN WHEELCHAIR. CALL LIGHT WITHIN REACH.
--- NOTE | 2019-09-30 11:01 | NUR ---
PTS DAUGHTER ARRIVED. PT READY FOR DISCHRAGE. PTS DAUGHTER STATES PT HAS LAB ORDERS DUE FOR OUT PT VISIT WITH DR. MARIE. LAB CALLED AND IS ABLE TO DRAW LABS WHILE PT IS HERE. LAB TO BEDSIDE. DISCHRAGE INSTRCTIONS REVIEWED WITH DAUGHTER WHO STATES HER QUESTIONS HAVE BEEN ANSWERED. PAIN MEDICATIONS GIVEN FOR 10/10 PAIN PER PT REQUESTS. PHARMACIST TO BEDSIDE TO REVIEW MEDICATIONS. PT VERBALIZES UNDERSTANDING OF MEDICATIONS AND STATES HIS QUESTIONS HAVE HAVE BEEN ANSWERED. PT WHEELED FROM MED/SURG WITH ALL BELONGINGS. DAUGHTER DRIVING PT HOME.
== END 2019-09-30 11:10 | disposition home or self-care (01) | DRG 194 ==
LOC: ED 12:21 → CCU 16:43 → MS 16:43
PROVIDERS: ADMIT Internal Medicine
DX: J13 Pneumonia due to Streptococcus pneumoniae (principal); N18.4 Chronic kidney disease, stage 4 (severe); F11.20 Opioid dependence, uncomplicated; J43.1 Panlobular emphysema; F17.200 Nicotine dependence, unspecified, uncomplicated; E11.22 Type 2 diabetes mellitus with diabetic chronic kidney disease; G47.33 Obstructive sleep apnea (adult) (pediatric); G47.36 Sleep related hypoventilation in conditions classified elsewhere; I12.9 Hypertensive chronic kidney disease with stage 1 through stage 4 chronic kidney disease, or unspecified chronic kidney disease; E78.5 Hyperlipidemia, unspecified; K59.03 Drug induced constipation; T40.2X5A Adverse effect of other opioids, initial encounter; D63.1 Anemia in chronic kidney disease; G89.4 Chronic pain syndrome; Z99.3 Dependence on wheelchair; Z88.8 Allergy status to other drugs, medicaments and biological substances; Z86.73 Personal history of transient ischemic attack (TIA), and cerebral infarction without residual deficits; Z89.612 Acquired absence of left leg above knee; Z79.02 Long term (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 of antithrombotics/antiplatelets; Z79.82 Long term (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 of aspirin; Z79.4 Long term (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 of insulin; Z79.899 Other long term (current) drug therapy
CPT/HCPCS: 36415; 71045; 80048; 80053; 83735; 84484; 85025; 93005; 93010; 94640; 94660; 94668; 94760; 96374; 96376; 99291; 99406; J0696; J1650; J1815; J7030

== ENCOUNTER 2019-10-10 20:25 | Emergency (ER) | payer MEDICARE, OTHER ==
[~2019-10-10] VITALS: Ht 172.7 cm; Wt 87.8 kg
--- OUTSIDE RECORDS SUMMARY | ~2019-10-10 | XMS | Encounter Summary ---
Demographics + + + | Address | [address] | | | [place] [address] | + + + | Home Phone | | + + + | Preferred Language | Unknown | + + + | Marital Status | | + + + | Tenriism Affiliation | 1077 | + + + | Race | Unknown | + + + | Ethnic Group | Unknown | + + + Author + + + | Author | [facility] | | | and [place] | + + + | Organization | [facility] | | | [...] Team Providers + +------+ + | Care Manager Health Name | Role | Phone | + +------+ + | Rahul Silva MD | PCP | | + +------+ + Encounter Details +--------+ + + + + | Date | Type | Department | Care Team | Description | +--------+ + + + + | 07/20/ | Orders Only | [facility] | Farrukh Acuna MD | Stage 4 chronic | | 2019 | | NEPHROLOGY [place] | [address] [place] | kidney disease (HCC) | | | | [address] | [address] [place], [place] | (Primary Dx); | | | | [address] [place] [address] | [id number] | Persistent | | | | [place], [place] | | proteinuria; | | | | [address] | | Secondary | | | | [phone] | | hyperparathyroidism | | | | | | (HCC) | +--------+ + + + + Social History + +-------+ +--------+------+ | Tobacco Use | Types | Packs/Day | Years | Date | | | | | Used | | + +-------+ +--------+------+ | Current Every Day | | 1 | | | | Smoker | | | [...] Description | +--------+---------+ + + + | 10/20/ | Office | Vascular Surgery | Trisha Conner DNP | | | 2018 | Visit | | [address] | | | | | | [place], [place] | | | | | | [id number] | | | | | | | | +--------+---------+ + + + | 12/06/ | Office | Nephrology | Farrukh Acuna MD | | | 2019 | Visit | | [address] [facility] [place] | | | | | | [address] [place] | | | | | | [address] | | | | | | | | +--------+---------+ + + + + +------+--------+ + + | Name | Type | Priori | Associated Diagnoses | Order Schedule | | | | ty | | | + +------+--------+ + + | Misc Lab Referral | Lab | Routin | Stage 4 chronic | 1 Occurrences | | | | e | kidney disease (HCC) | starting 07/20/2019 | | | | | Persistent | until 03/08/2020 | | | | | proteinuria | | | | | | Secondary | | | | | | hyperparathyroidism | | | | | | (HCC) | | + +------+--------+ + + documented as of this encounter Visit Diagnoses + + | Diagnosis | + + | Stage 4 chronic kidney disease (HCC) - Primary | + + | Persistent proteinuria Proteinuria | + + | Secondary hyperparathyroidism (HCC) Secondary hyperparathyroidism (of renal origin) | + + documented in this encounter"
--- OUTSIDE RECORDS SUMMARY | ~2019-10-10 | XMS | Encounter Summary ---
Demographics + + + | Address | [address] | | | [place] [address] | + + + | Home Phone [...] Team Providers + +------+ + | Care Engagement Liaison Name | Role | Phone | + +------+ + | Rahul Silva MD | PCP | | + +------+ + Encounter Details +--------+ + + + + | Date | Type | Department | Care Team | Description | +--------+ + + + + | 06/15/ | Orders Only | [facility] | Conversion | | | 2019 | | NEPHROLOGY [place] | Transaction, | | | | | [address] [place] | Provider Unknown | | | | | [address] [place] | | | | | | [address] | (Fax) | | | | | [phone] | | | +--------+ + + + [...] | | | | | [place] | | | | | | [phone] | | | | | | | | +--------+---------+ + + + | 12/06/ | Office | Nephrology | Farrukh Acuna MD | | | 2019 | Visit | | [address] [place] | | | | | | [facility] [place] | | | | | | [address] | | | | | | | | +--------+---------+ + + + documented as of this encounter Procedures + +--------+ + + + | Procedure Name | Priori | Date/Time | Associated Diagnosis | Comments | | | ty | | | | + +--------+ + + + | BASIC METABOLIC | Routin | 06/15/2019 | | Results for this | | PANEL | e | 1:43 PM | | procedure are in the | | | | PDT | | results section. | + +--------+ + + + documented in this encounter Results Basic Metabolic Panel (06/15/2019 1:43 PM PDT) + + + + + + | Component | Value | Ref Range | Performed | Pathologist | | | | | At | Signature | + + + + + + | Glucose, | 173 (A) | 70 - 100 mg/dL | EXTERNAL | | | Fasting | | | LAB | | + + + + + + | BUN | 39 (A) | 6 - 23 mg/dL | EXTERNAL | | | | | | LAB | | + + + + + + | Creatinine | 3.72 (A) | 0.70 - 1.18 | EXTERNAL | | | | | mg/dL | LAB | | + + + + + + | BUN/Creatin | 10.5 | 6.0 - 28.6 | EXTERNAL | | | ine Ratio | | | LAB | | + + + + + + | Calcium | 8.3 (A) | 8.5 - 10.3 | EXTERNAL | | | | | mg/dL | LAB | | + + + + + + | Na | 138 | 132 - 143 | EXTERNAL | | | | | mmol/L | LAB | | + + + + + + | K | 4.7 | 3.6 - 5.1 | EXTERNAL | | | | | | LAB | | + + + + + + | Cl | 102 | 95 - 112 mmol/L | EXTERNAL | | | | | | LAB | | + + + + + + | CO2 | 25 | 19 - 31 mmol/L | EXTERNAL | | | | | | LAB | | + + + + + + | Anion Gap | 15.7 | 7 - 21 mmol/L | EXTERNAL | | | | | | LAB | | + + + + + + | Estimated | 16 (A) | 60 - 140 mg/dL | EXTERNAL | | | GFR [...]
--- OUTSIDE RECORDS SUMMARY | ~2019-10-10 | XMS | Encounter Summary ---
Demographics + + + | Address | [address] | | | [place] [address] | + + + | Home Phone | | + + + | Preferred Language | Unknown | + + + | Marital Status | | + + + | Adventist Affiliation | 1077 | + + + [...] Team Providers + +------+ + | Care Health And Safety Consultant Name | Role | Phone | + +------+ + | Rahul Silva MD | PCP | | + +------+ + Encounter Details +--------+ + + + + | Date | Type | Department | Care Team | Description | +--------+ + + + + | 10/03/ | Orders Only | [facility] | Collin Mirza, | | | 2015 | | NEPHROLOGY [place] | [address] | | | | | [address] [place] | [address] | | | | | [address] [place], [place] | [facility] | | | | | [address] | [address] | | | | | [phone] | [phone] | | | | | | | [...] [place] | | | | | | [address] | | | | | | | | +--------+---------+ + + + | 12/06/ | Office | Nephrology | Farrukh Acuna MD | | | 2019 | Visit | | [address] [facility] [place] | | | | | | [address] [place] | | | | | | [address] | | | | | | | | +--------+---------+ + + + documented as of this encounter Procedures + +--------+ + + + | Procedure Name | Priori | Date/Time | Associated Diagnosis | Comments | | | ty | | | | + +--------+ + + + | MAGNESIUM | Routin | 10/03/2016 | | Results for this | | | e | 12:00 AM | | procedure are in the | | | | PDT | | results section. | + +--------+ + + + documented in this encounter Results Magnesium (10/03/2016 12:00 AM PDT) + +-------+ + + + | Component | Value | Ref Range | Performed | Pathologist | | | | | At | Signature | + +-------+ + + + | Magnesium | 1.9 | 1.7 - 2.5 mg/dL | EXTERNAL [...]
--- OUTSIDE RECORDS SUMMARY | ~2019-10-10 | XMS | Encounter Summary ---
Demographics + + + | Address | [address] | | | [place] [address] | + + + | Home Phone | | + + + | Preferred Language | Unknown | + + + | Marital Status | | + + + | Judaism Affiliation | 1077 | + + + | Race | Unknown | + + + | Ethnic Group | Unknown | + + + Author + + + | Author | [facility] | | | and [place] | + + + | Organization | [facility] | | [...] Team Providers + +------+ + | Care Hand Sprayer Name | Role | Phone | + [...] | Transaction, | | | | | [place], [place] | Provider Unknown | | | | | [address] | | | | | | [phone] | | | +--------+ + + + [...] [place] | | | | | | [address] | | | | | | | | +--------+---------+ + + + | 12/06/ | Office | Nephrology | Farrukh Acuna MD | | | 2019 | Visit | | [address] [facility] [place] | | | | | | [address] [place] [address] | | | | | | [address] | | | | | | | | +--------+---------+ + + + documented as of this encounter Procedures + +--------+ + + + | Procedure Name | Priori | Date/Time | Associated Diagnosis | Comments | | | ty | | | | + +--------+ + + + | MAGNESIUM | Routin | 11/13/2016 | | Results for this | | | e | 4:37 AM | | procedure are in the | | | | PST | | results section. | + +--------+ + + + documented in this encounter Results Magnesium (11/13/2016 4:37 AM PST) + +---------+ + + + | Component | Value | Ref Range | Performed | Pathologist | | | | | At | Signature | + +---------+ + + + | Magnesium | 1.6 (L) | 1.7 - 2.4 mg/dL | EXTERNAL | | | | | | LAB | | + +---------+ + + + + + | Specimen | + + | | + + + + + | Narrative | Performed At | + + + | Attending/Visit Provider: , GER WATKINS, Cary LOVE, , , CELSA, | EXTERNAL LAB | | Ordering Provider: , VENKAT MUELLER A , , AL[place], | | + + + + +---------+ + + | Performing | Address | City/State/Zipcode | Phone Number | | Organization | | | | + +---------+ + + | EXTERNAL LAB | | | | + +---------+ + + documented in this encounter Visit Diagnoses Not on filedocumented in this encounter"
--- OUTSIDE RECORDS SUMMARY | ~2019-10-10 | XMS | Encounter Summary ---
Demographics + + + | Address | [address] | | | [place] [address] | + + + | Home Phone | | + + + | Preferred Language | Unknown | + + + | Marital Status | | + + + | Hoahaoism Affiliation | 1077 | + + + | Race | Unknown | + + + | Ethnic Group | Unknown | + + + Author + + + | Author | [facility] | | | and [place] | + + + | Organization | [facility] | | | and [...] Team Providers + +------+ + | Care Transformer Mechanic Name | Role | Phone | + +------+ + | Rahul Silva MD | PCP | | + +------+ + Encounter Details +--------+ + + + + | Date | Type | Department | Care Team | Description | +--------+ + + + + | 05/27/ | Orders Only | [facility] | Farrukh Acuna MD | | | 2019 | | NEPHROLOGY [place] | [address] [place] | | | | | [address] [place] | [address] [place], [place] | | | | | [address] [place], [place] | [address] | | | | | [address] | | | | | | [phone] | | | +--------+ + + + [...] [place] | | | | | | [address] | | | | | | | | +--------+---------+ + + + | 12/06/ | Office | Nephrology | Farrukh Acuna MD | | | 2020 | Visit | | [address] [place] | | | | | | [address] [place] | | | | | | [address] | | | | | | | | +--------+---------+ + + + documented as of this encounter Procedures + +--------+ + + + | Procedure Name | Priori | Date/Time | Associated Diagnosis | Comments | | | ty | | | | + +--------+ + + + | EXTERNAL LAB: CBC | Routin | 05/27/2019 | | Results for this | | | e | 3:26 PM | | procedure are in the | | | | PDT | | results section. | + +--------+ + + + | PARATHYROID HORMONE, | Routin | 05/27/2019 | | Results for this | | INTACT | e | 3:26 PM | | procedure are in the | | | | PDT | | results section. | + +--------+ + + + | FERRITIN | Routin | 05/27/2019 | | Results for this | | | e | 3:26 PM | | procedure are in the | | | | PDT | | results section. | + +--------+ + + + | RENAL FUNCTION PANEL | Routin | 05/27/2019 | | Results for this | | | e | 3:26 PM | | procedure are in the | | | | PDT | | results section. | + +--------+ + + + documented in this encounter Results External Lab: CBC (05/27/2019 3:26 PM PDT) + + + [...] + + + | RED CELL | 3.58 (A) | 4.3 - 5.7 10 | [...] + + + + | MCV | 84.5 | 81 - 99 fL | EXTERNAL | | | | | | LAB | | + + + + + + | MCH | 28 | 27 - 33 pg | EXTERNAL | | | | | | LAB | | + + + + + + | MCHC | 33 | 30 - 36 g/dL | EXTERNAL | | | | | | LAB | | + + + + + + | Platelet | 266 | 140 - 440 K/ L | EXTERNAL | | | Count | | | LAB | | | Plasma | | | | | + + + + + + | RDW-CV | 14.6 | 10.5 - 15.0 % | EXTERNAL [...] + + + | % Segmented | 67.5 | 39 - 80 % | EXTERNAL | | | | | | LAB | | | Neutrophils | | | | | + + + + + + | % | 10.8 (A) | 24 - 44 % | EXTERNAL | | | Lymphocytes | | | LAB | | + + + + + + | % Monocytes | 9.1 | 0 - 12 % | EXTERNAL | | | | | | LAB | | + + + + + + | % | 11.9 (A) | 0 - 6 % | EXTERNAL [...] + +---------+ + + Parathyroid Hormone, Intact (05/27/2019 3:26 PM PDT) + + + + + + | Component | Value | Ref Range | Performed | Pathologist | | | | | At | Signature | + + + + + + | PTH INTACT | 146.6 (A) | 15 - 65 pg/mL | [...] | | + +---------+ + + Ferritin (05/27/2019 3:26 PM PDT) + +-------+ + + + | Component | Value | Ref Range | Performed | Pathologist | | | | | At | Signature | + +-------+ + + + | Ferritin, | 162.3 | 30 - 400 ng/mL | EXTERNAL [...] + +---------+ + + Renal Function Panel (05/27/2019 3:26 PM PDT) + + + [...] + + + + | BUN | 49 (A) | 6 - 23 mg/dL | EXTERNAL | | | | | | LAB | | + + + + + + | Creatinine | 4.44 (A) | 0.70 - 1.18 | EXTERNAL | | | | | mg/dL | LAB | | + + + + + + | PHOSPHORUS | 6.2 (A) | 2.5 - 5.0 mg/dL | EXTERNAL | | | | | | LAB | | + + + + + + | Albumin | 3.3 (A) | 3.5 - 5.0 | EXTERNAL | | | | | | LAB | | + + + + + + | Na | 138 | 132 - 143 | EXTERNAL | | | | | mmol/L | LAB | | + + + + + + | K | 4.6 | 3.6 - 5.1 | EXTERNAL | | | | | mmol/L | LAB | | + + + + + + | Cl | 98 | 95 - 112 mmol/L | EXTERNAL | | | | | | LAB | | + + + + + + | CO2 | 28 | 19 - 31 mmol/L | EXTERNAL | | | | | | LAB | | + + + + + + | Anion Gap | 16.6 | 7 - 21 mmol/L | EXTERNAL | | | | | | LAB | | + + + + + + | eGFR if not | | | EXTERNAL | | | | | | LAB | | | LITHUANIAN | | | | | + + + + + + | Phosphorus, | | | EXTERNAL | | | Inorganic | | | LAB | | + + + + + + | BUN/Creatin | 11.0 | 6.0 - 28.6 | EXTERNAL | | | ine Ratio | | | LAB | | + + + + + + | Calcium | 8.3 (A) | 8.5 - 10.3 | EXTERNAL | | | | | mg/dL | LAB | | + + + + + + | Estimated | 13 (A) | 60 - 140 mg/dL | [...]
--- OUTSIDE RECORDS SUMMARY | ~2019-10-10 | XMS | Encounter Summary ---
Demographics + + + | Address | [address] | | | [place] [address] | + + + | Home Phone [...] Team Providers + +------+ + | Care Mutuel Teller Name | Role | Phone | + [...] [address] | | | | | [place], [place] | [place], [place] | | | | | [address] | [address] | | | | | [phone] | [phone] | | | | | | | [...] [place] | | | | | | [address] | | | | | | | | +--------+---------+ + + + | 12/06/ | Office | Nephrology | Farrukh Acuna MD | | | 2019 | Visit | | [address] [facility] [place] | | | | | | [address] | | | | | | [address] | | | | | | | | +--------+---------+ + + + documented as of this encounter Procedures + +--------+ + + + | Procedure Name | Priori | Date/Time | Associated Diagnosis | Comments | | | ty | | | | + +--------+ + + + | BASIC METABOLIC | Routin | 11/09/2016 | | Results for this | | PANEL | e | 4:37 AM | | procedure are in the | | | | PST | | results section. | + +--------+ + + + documented in this encounter Results Basic Metabolic Panel (11/09/2016 4:37 AM PST) + + + + + + | Component | Value | Ref Range | Performed | Pathologist | | | | | At | Signature | + + + + + + | Na | 143 | 135 - 145 | EXTERNAL | | | | | mmol/L | LAB | | + + + + + + | K | 3.1 (L) | 3.5 - 4.9 | EXTERNAL [...] + + + + | Glucose, | 163 (H) | 65 - 99 mg/dL | EXTERNAL | | | Fasting | | | LAB | | + + + + + + | BUN | 48 (H) | 8 - 25 mg/dL | EXTERNAL | | | | | | LAB | | + + + + + + | Creatinine | 4.2 (H) | 0.70 - 1.30 | EXTERNAL | | | | | mg/dL | LAB | | + + + + + + | BUN/Creatin | 11 | | EXTERNAL | | | ine Ratio | | | LAB | | + + + + + + | Calcium | 7.5 (L) | 8.5 - 10.5 | EXTERNAL [...]
--- OUTSIDE RECORDS SUMMARY | ~2019-10-10 | XMS | Encounter Summary ---
Demographics + + + | Address | [address] | | | [place] [address] | + + + | Home Phone | | + + + | Preferred Language | Unknown | + + + | Marital Status | | + + + | Mandaeism Affiliation | 1077 | + + + [...] Team Providers + +------+ + | Care Dictaphone Typist Name | Role | Phone | + +------+ + | Rahul Silva MD | PCP | | + +------+ + Encounter Details +--------+ + + + + | Date | Type | Department | Care Team | Description | +--------+ + + + + | 08/13/ | Orders Only | [facility] | Conversion | | | 2016 | | NEPHROLOGY [place] | Transaction, | | | | | [address] [place] | Provider Unknown | | | | | [address] [place] [address] | | | | | | [address] | (Fax) | | | | | [phone] | | | +--------+ + + + [...] [place] | | | | | | [address] | | | | | | | | +--------+---------+ + + + | 12/06/ | Office | Nephrology | Farrukh Acuna MD | | | 2019 | Visit | | [address] [place] | | | | | | [address] [place] [address] | | | | | | [address] | | | | | | | | +--------+---------+ + + + documented as of this encounter Procedures + +--------+ + + + | Procedure Name | Priori | Date/Time | Associated Diagnosis | Comments | | | ty | | | | + +--------+ + + + | IRON AND IRON | Routin | 08/13/2017 | | Results for this | | BINDING CAPACITY | e | 4:00 PM | | procedure are in the | | | | PDT | | results section. | + +--------+ + + + | TRANSFERRIN | Routin | 08/13/2017 | | Results for this | | | e | 4:00 PM | | procedure are in the | | | | PDT | | results section. | + +--------+ + + + documented in this encounter Results Iron and Iron Binding Capacity (08/13/2017 4:00 PM PDT) + + + + + + | Component | Value | Ref Range | Performed | Pathologist | | | | | At | Signature | + + + + + + | Iron | 51.83 | 37 - 160 | EXTERNAL | | | | | | LAB | | + + + + + + | Iron | 16.5 (A) | 20 - 55 | EXTERNAL | | | Saturation | | | LAB | | + + + + + + | TIBC | 314 | 245 - 400 | EXTERNAL | [...] | | + +---------+ + + Transferrin (08/13/2017 4:00 PM PDT) + +--------+ + + + | Component | Value | Ref Range | Performed | Pathologist | | | | | At | Signature | + +--------+ + + + | TRANSFERRIN | 224.03 | 180 - 329 | EXTERNAL | [...]
--- OUTSIDE RECORDS SUMMARY | ~2019-10-10 | XMS | Encounter Summary ---
Demographics + + + | Address | [address] | | | [place] [address] | + + + | Home Phone | | + + + | Preferred Language | Unknown | + + + | Marital Status | | + + + | Yazdanism Affiliation | 1077 | + + + | Race | Unknown | + + + | Ethnic Group | Unknown | + + + Author + + + | Author | [facility] | | | and [place] | + + + | Organization | [facility] | | [...] Team Providers + +------+ + | Care Wire Harness Assembler Name | Role | Phone | [...] | Transaction, | | | | | [place], [place] | Provider Unknown | | | | | [address] | | | | | | [phone] | | | +--------+ + + + [...] [place] | | | | | | [address] | | | | | | | | +--------+---------+ + + + | 12/06/ | Office | Nephrology | Farrukh Acuna MD | | | 2019 | Visit | | [address] [facility] [place] | | | | | | [address] | | | | | | [address] | | | | | | | [...]
--- OUTSIDE RECORDS SUMMARY | ~2019-10-10 | XMS | Encounter Summary ---
Demographics + + + | Address | [address] | | | [place] [address] | + + + | Home Phone | | + + + | Preferred Language | Unknown | + + + | Marital Status | | + + + | Hinduism Affiliation | 1077 | + + + | Race | Unknown | + + + | Ethnic Group | Unknown | + + + Author + + + | Author | [facility] | | | and [place] | + + + | Organization | [facility] | | [...] Team Providers + +------+ + | Care Parts Advisor Name | Role | Phone | + +------+ + | Rahul Silva MD | PCP | | + +------+ + Reason for Visit +---------+ + | Reason | Comments | +---------+ + | Results | 07/19/19 | +---------+ + Encounter Details +--------+ + + + + | Date | Type | Department | Care Team | Description | +--------+ + + + + | 07/21/ | Documentati | [facility] | Simon, | Results (07/19/19) | | 2019 | on | NEPHROLOGY [place] | [facility] | | | | | [address] [place] | Administrative Accountant | | | | | [address] [place], [place] | | | | | | [address] | | | | | | [phone] | | | +--------+ + + + [...] | | | | | | [place] | | | | | | [id number] | | | | | | | | +--------+---------+ + + + | 12/06/ | Office | Nephrology | Farrukh Acuna MD | | | 2019 | Visit | | [address] [facility] [place] | | | | | | [address] | | | | | | [address] | | | | | | | | +--------+---------+ + + + documented as of this encounter Procedures + +--------+ + + + | Procedure Name | Priori | Date/Time | Associated Diagnosis | Comments | | | ty | | | | + +--------+ + + + | EXTERNAL LAB: PTH, | Routin | 07/19/2019 | | Results for this | | INTACT | e | 3:30 PM | | procedure are in the | | | | PDT | | results section. | + +--------+ + + + | IRON AND IRON | Routin | 07/19/2019 | | Results for this | | BINDING CAPACITY | e | 3:30 PM | | procedure are in the | | | | PDT | | results section. | + +--------+ + + + | CBC W/AUTO | Routin | 07/19/2019 | | Results for this | | DIFFERENTIAL | e | 3:30 PM | | procedure are in the | | | | PDT | | results section. | + +--------+ + + + | RENAL FUNCTION PANEL | Routin | 07/19/2019 | | Results for this | | | e | 3:30 PM | | procedure are in the | | | | PDT | | results section. | + +--------+ + + + documented in this encounter Results Iron and Iron Binding Capacity (07/19/2019 3:30 PM PDT) + +-------+ + + + | Component | Value | Ref Range | Performed | Pathologist | | | | | At | Signature | + +-------+ + + + | Iron, | 57.99 | 37 - 160 | | | | External | | | | | + +-------+ + + + | Iron | 258 | 245 - 400 ug/dL | | | | binding | | | | | | capacity | | | | | + +-------+ + + + | Iron | 23 | 20 - 55 % | | | | Saturation | | | | | + +-------+ + + + | Ferritin | 107.3 | 30 - 400 | | | + +-------+ + + + | UIBC | 200 | | | | + +-------+ + + + | TRANSFERRIN | 184.6 | 180.0 - 329.0 | | | | | | mg/dL | | | + +-------+ + + + + + | Specimen | + + | Blood | + + Renal Function Panel (07/19/2019 3:30 PM PDT) + + + + + [...] + + + + | CO2 | 24 | 19 - 31 mmol/L | | | + + + + + + | Anion Gap | 17 | 7 - 21 mmol/L | | | + + + + + + | Glucose | 167 (A) | 70 - 100 mg/dL | | | + + + + + + | BUN | 44 (A) | 6 - 23 mg/dL | | | + + + + + + | CREA | 4.08 (A) | 0.70 - 1.18 | | | | | | mg/dL | | | + + + + + + | GFR | 14 (A) | 60 - 140 | | | | ESTIMATE | | | | | + + + + + + | BUN/Creatin | 10.8 | 6.0 - 28.6 | | | | ine Ratio | | | | | + + + + + + | Albumin | 36.3 (A) | 3.5 - 5.0 g/dL | | | + + + + + + | Calcium | 8.1 (A) | 8.5 - 10.3 | | | + + + + + + | Phosphorus, | 4.8 | 2.5 - 5.0 | | | | External | | | | | + + + + + + + + | Specimen | + + | Blood | + + CBC w/ Auto Differential (07/19/2019 3:30 PM PDT) + + + + + + | Component | Value | Ref Range | Performed | Pathologist | | | | | At | Signature | + + + + + + | WBC | 7.4 | 4.5 - 11.0 | | | + + + + + + | RBC COUNT | 4 | 4 - 6 | | | + + + + + + | Hemoglobin | 10.0 (A) | 13.5 - 18.0 | | | + + + + + + | Hematocrit, | 30.2 (A) | 41 - 50 | | | | BF | | | | | + + + + + + | Platelet | 255 | 140 - 440 | | | | Count | | | | | | Plasma | | | | | + + + + + + | NEUTROPHILS | 67.2 | 39 - 80 % | | | | BL | | | | | + + + + + + | LYMPHOCYTES | 15.1 (A) | 24 - 44 % | | | | BL | | | | | + + + + + + | MONOCYTES | 9.9 | 0 - 12 | | | | BAL | | | | | + + + + + + | MCV | 84.1 | 81 - 99 | | | + + + + + + | RDW | 15.4 (A) | 10.5 - 15.0 | | | + + + + + + | MCH | 28 | 27 - 33 | | | + + + + + + | MCHC, POC | 33 | 30 - 36 | | | + + + + + + | EOSINOPHILS | 7.0 (A) | 0 - 6 % | | | | BL | | | | | + + + + + + | BASOPHILS | 0.8 | 0 - 2 | | | | BAL | | | | | + + + + + + + + | Specimen | + + | Blood | + + External Lab: PTH, Intact (07/19/2019 3:30 PM PDT) + + + + + + | Component | Value | Ref Range | Performed | Pathologist | | | | | At | Signature | + + + + + + | PTH Intact, | 178.5 (A) | 15 - 65 | | | | External | | | | | + + + + + + + + | Specimen | + + | | + + documented in this encounter Visit Diagnoses Not on filedocumented in this encounter"
--- OUTSIDE RECORDS SUMMARY | ~2019-10-10 | XMS | Encounter Summary ---
Demographics + + + | Address | [address] | | | [place] [address] | + + + | Home Phone [...] Team Providers + +------+ + | Care Tourist Adviser Name | Role | Phone | + +------+ + | Rahul Silva MD | PCP | | + +------+ + Encounter Details +--------+ + + + + | Date | Type | Department | Care Team | Description | +--------+ + + + + | 06/12/ | Orders Only | [facility] | Farrukh Acuna MD | | | 2017 | | NEPHROLOGY [place] | [address] [place] | | | | | [address] [place] | [address] [place], [place] | | | | | [address] [place], [place] | [address] | | | | | [address] | | | | | | [phone] | | | +--------+ + + + [...] [place] | | | | | | [address] | | | | | | | | +--------+---------+ + + + | 12/06/ | Office | Nephrology | Farrukh Acuna MD | | | 2020 | Visit | | [address] [place] | | | | | | [address] | | | | | | [address] | | | | | | | [...]
--- OUTSIDE RECORDS SUMMARY | ~2019-10-10 | XMS | Encounter Summary ---
Demographics + + + | Address | [address] | | | [place] [address] | + + + | Home Phone [...] Providers + +------+ + | Care Career Services Officer Name | Role | Phone | [...] | Transaction, | | | | | [place], [place] | Provider Unknown | | | | | [address] | | | | | | [phone] | | | +--------+ + + + [...] [place] | | | | | | [address] | | | | | | | | +--------+---------+ + + + | 12/06/ | Office | Nephrology | Farrukh Acuna MD | | | 2019 | Visit | | [address] [facility] [place] | | | | | | [address] | | | | | | [address] | | | | | | | [...]
--- OUTSIDE RECORDS SUMMARY | ~2019-10-10 | XMS | Encounter Summary ---
Demographics + + + | Address | [address] | | | [place] [address] | + + + | Home Phone | | + + + | Preferred Language | Unknown | + + + | Marital Status | Single | + + + | Sabianist Affiliation | PRO | + + + | Race | White | + + + | Ethnic Group | Not or | + + + Author + + + | Author | [facility] | + + + | Organization | [facility] | + + + | Address | Unknown | + + + | Phone | Unavailable | + + + Support + + + + + | Name | Relationship | Address | Phone | + + + + + | Darci Andujar | [address]ER[address] | [place] | | | | | [address] | | + + + + + Care Team Providers + +------+ + | Care Leather Finisher Name | Role | Phone | + [...] [address] | | | | | | [place], [place] | | | | | | [address] | | | +--------+ + + + [...] as of this encounter Progress Notes Interface, Experience Specialist In - 03/27/2007 3:12 AM PDT CLINIC [...] an abnormal AC-BE, he was referred to [facility] for colonoscopy. MEDICATIONS: 1. Vicodin. 2. Various [...] Dr. Valles who is his physician in [place], [place]. He has made me aware that [...] M.D. Fellow, Gastroenterology SHANEL/stephon cc: ARIA WATKINS [facility] [place] documented in this encounter Plan of Treatment Not on filedocumented as of this encounter Visit Diagnoses Not on filedocumented in this encounter"
--- OUTSIDE RECORDS SUMMARY | ~2019-10-10 | XMS | Encounter Summary ---
Demographics + + + | Address | [address] | | | [place] [address] | + + + | Home Phone [...] Team Providers + +------+ + | Care Dialysis Patient Care Technician Name | Role | Phone | + +------+ + | Rahul Silva MD | PCP | | + +------+ + Encounter Details +--------+ + + + + | Date | Type | Department | Care Team | Description | +--------+ + + + + | 12/19/ | Orders Only | [facility] | Conversion | | | 2016 | | NEPHROLOGY [place] | Transaction, | | | | | [address] | Provider Unknown | | | | | [address] | | | | | | [address] | (Fax) | | | | | [phone] | | | +--------+ + + + [...] [place] | | | | | | [address] | | | | | | | | +--------+---------+ + + + | 12/06/ | Office | Nephrology | Farrukh Acuna MD | | | 2019 | Visit | | [address] [place] | | | | | | [address] [address] | | | | | | [address] | | | | | | | [...]
--- OUTSIDE RECORDS SUMMARY | ~2019-10-10 | XMS | Encounter Summary ---
Demographics + + + | Address | [address] | | | [place] [address] | + + + | Home Phone | | + + + | Preferred Language | Unknown | + + + | Marital Status | Single | + + + | Restorationism Affiliation | PRO | + + + | Race | White | + + + | Ethnic Group | Not or | + + + Author + + + | Author | [facility] | + + + | Organization | [facility] | + + + | Address | Unknown | + + + | Phone | Unavailable | + + + Support + + + + + | Name | Relationship | Address | Phone | + + + + + | Darci Andujar | VALERIE | [place] | | | | | [address] | | + + + + + Care Team Providers + +------+ + | Care Labor And Delivery Nurse Name | Role | Phone | + +------+ + PCP | Unavailable | + +------+ + Encounter Details +--------+ + + + + | Date | Type | Department | Care Team | Description | +--------+ + + + + | 03/16/ | Office | General Internal | Note, Outpatient | Progress Note | | 1997 | Visit-Trans | Medicine [address] | Clinic | | | | crigurinder | [address] | | | | | | Mailcode: [id number] | | | | | | Outpatient Clinic | | | | | | [facility], [address] | | | | | | [place], [place] | | | | | | [address] | | | | | | [phone] | | | +--------+ + + + [...] as of this encounter Progress Notes Interface, Film And Video Graphics Designer In - 12/25/2006 5:00 AM [facility] DATE: 03/16/98 PLASTIC SURGERY CLINIC SUBJECTIVE: This is a 57-year-old man who was referred to me for evaluation of a painful left thigh stump. 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 He has had extensive complications with the stump including chronic pain, and he has had operations on the stump including removal of osteophytes over a year ago, which helped somewhat with the pain. He has been evaluated by Neurosurgery, Orthopedics, and Pain Management. He had been offered a spinal cord stimulator by Dr. Moise approximately one year ago; however, he refused this. Orthopedics and Vascular Surgery consults could not offer him any help; however, Dr. Nelosn Melara in Pain Management recently performed nerve blocks to the sciatic and femoral nerve stump areas on the amputation stump and reported that the patient had pain relief from this, consistent with probable neuromas. The patient has had previous central nervous system evaluation and imaging which has been unrevealing apparently. The patient describes the pain as constant and often burning. He has had a long history of narcotic abuse. He denies any symptoms in the right leg. PHYSICAL EXAMINATION: He has a well-healed scar that is primarily on the left lateral side, extending in an oblique direction. Around the scar he has 8/10 pain on palpation, and several centimeters from the scar he has 4/10 tenderness. I was not able to locate a specific tender spot or palpate any masses. 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 I discussed the case on the phone with Dr. Melara today, and I believe there is a possibility, albeit slight, that improvement may be made if we perform exploration surgery on his stump and resect his nerve ends. Resecting the neuromas may give him some improvement from the pain, but I told the patient that if he does not get improvement, the next step would be to have a spinal implant. He was not happy to hear this, but I stressed that there is a very high chance that the surgery I perform on his stump will not be of benefit. Nevertheless, he is willing to undergo the surgery; the potential risks and complications were explained to him, and all questions were answered. He agrees to proceed with the understanding that he may gain no benefit from the surgery. We will therefore plan the surgery in the main operating room in the near future. Galo Arora M.D. Manager Of Information, Division of Plastic & Reconstructive Surgery AYDEE/alfred documented in this encounter Plan of Treatment Not on filedocumented as of this encounter Visit Diagnoses Not on filedocumented in this encounter"
--- OUTSIDE RECORDS SUMMARY | ~2019-10-10 | XMS | Encounter Summary ---
Demographics + + + | Address | [address] | | | [place] [address] | + + + | Home Phone [...] Team Providers + +------+ + | Care Drain Cleaner Plumber Name | Role | Phone | + +------+ + | Rahul Silva MD | PCP | | + +------+ + Encounter Details +--------+ + + + + | Date | Type | Department | Care Team | Description | +--------+ + + + + | 11/10/ | Orders Only | [facility] | Farrukh Acuna MD | | | 2017 | | NEPHROLOGY [place] | [address] [place] | | | | | [address] [place] | [address] [place], [place] | | | | | [address] [place], [place] | [address] | | | | | [address] | | | | | | [phone] | | | +--------+ + + + [...] [place] | | | | | | [address] | | | | | | | | +--------+---------+ + + + | 12/06/ | Office | Nephrology | Farrukh Acuna MD | | | 2020 | Visit | | [address] | | | | | | [address] [place] | | | | | | [address] | | | | | | | [...]
--- OUTSIDE RECORDS SUMMARY | ~2019-10-10 | XMS | Encounter Summary ---
Demographics + + + | Address | [address] | | | [place] [address] | + + + | Home Phone | | + + + | Preferred Language | Unknown | + + + | Marital Status | Single | + + + | Jew Affiliation | PRO | + + + [...] [place] | | | | | [address] | | + + + + + Care Team Providers + +------+ + | Care Technician Chemical Cleaning Name | Role | Phone | + +------+ + PCP | Unavailable | + +------+ + Encounter Details +--------+ + + + + | Date | Type | Department | Care Team | Description | +--------+ + + + + | 12/22/ | Results | | Other, Faculty | | | 1997 | Only | | [phone] | | +--------+ + + + + [...] | | | | | | 12/22/96 [id number] hours. | | | | | | [...] | | + +---------+ + + | [facility] | | | | [...] | | | | | | | [id number] | | | | | | SPINE, [...] | | + +---------+ + + | [facility] DEPARTMENT OF | | | | | RADIOLOGY | | | | + +---------+ + + documented in this encounter Visit Diagnoses Not on filedocumented in this encounter"
--- OUTSIDE RECORDS SUMMARY | ~2019-10-10 | XMS | Encounter Summary ---
Demographics + + + | Address | [address] | | | [place] [address] | + + + | Home Phone | | + + + | Preferred Language | Unknown | + + + | Marital Status | | + + + | Orthodoxy Affiliation | 1077 | + + + | Race | Unknown | + + + | Ethnic Group | Unknown | + + + Author + + + | Author | [facility] (Historical as of | | | 07-17-19) | + + + | Organization | [facility] (Historical as of | | | 07-17-19) | + + + | Address | Unknown | + + + | Phone | Unavailable | + + + Support + + +---------+ + | Name | Relationship | Address | Phone | + + +---------+ + | Charlotte Andujar | ECON | Unknown | | + + +---------+ + Care Team Providers + +------+ + | Care Civil Transportation Engineer Name | Role | Phone | + +------+ + | Rahul Silva MD | PCP | Unavailable | + +------+ + Encounter Details +--------+ + + + + | Date | Type | Department | Care Team | Description | +--------+ + + + + | 07/16/ | Telephone | [facility] | Alfred, | | | 2019 | | [address] | [address] | | | | | [address] | | | | | | [place] [address] | | | | | | [phone] | | | +--------+ + + + [...] + + + as of this encounter Plan of Treatment Not on fileas of this encounter Visit Diagnoses Not on filein this encounter"
--- OUTSIDE RECORDS SUMMARY | ~2019-10-10 | XMS | Encounter Summary ---
Demographics + + + | Address | [address] | | | [place] [address] | + + + | Home Phone [...] Providers + +------+ + | Care Health Service Coordinator Name | Role | Phone | + +------+ + | Rahul Silva MD | PCP | | + +------+ + Encounter Details +--------+ + + + + | Date | Type | Department | Care Team | Description | +--------+ + + + + | 05/22/ | Orders Only | [facility] | Farrukh Acuna MD | | | 2018 | | NEPHROLOGY [place] | [address] [place] | | | | | [address] [place] | [address] [place], [place] | | | | | [address] [place], [place] | [address] | | | | | [address] | | | | | | [phone] | | | +--------+ + + + [...] [place] | | | | | | [address] | | | | | | | | +--------+---------+ + + + | 12/06/ | Office | Nephrology | Farrukh Acuna MD | | | 2020 | Visit | | [address] [place] | | | | | | [address] [place] | | | | | | [address] | | | | | | | | +--------+---------+ + + + documented as of this encounter Procedures + +--------+ + + + | Procedure Name | Priori | Date/Time | Associated Diagnosis | Comments | | | ty | | | | + +--------+ + + + | EXTERNAL LAB: CBC | Routin | 05/22/2018 | | Results [...] + + + | RED CELL | 3.8 (A) | 4.3 - 5.7 [...] | | | LAB | | | [facility] | | | | | + + [...]
--- OUTSIDE RECORDS SUMMARY | ~2019-10-10 | XMS | Encounter Summary ---
Demographics + + + | Address | [address] | | | [place] [address] | + + + | Home Phone [...] Team Providers + +------+ + | Care Junior Systems Administrator Name | Role | Phone | + +------+ + | Rahul Silva MD | PCP | | + +------+ + Encounter Details +--------+ + + + + | Date | Type | Department | Care Team | Description | +--------+ + + + + | 09/10/ | Ancillary | [facility] | Brian Orosco MD | Canceled (OTHER) | | 2019 | Procedure | [facility] | [address] | | | | | OPER[address] | [place], [place] | | | | | [address] | [address] | | | | | [place], [place] | [phone] | | | | | [address] | | | | | | [phone] | | | +--------+ + + + [...] [place] | | | | | | [id number] | | | | | | | | +--------+---------+ + + + | 12/06/ | Office | Nephrology | Farrukh Acuna MD | | | 2020 | Visit | | [address] [facility] [place] | | | | | | [address] [place], [place] | | | | | | [address] | | | | | | | | +--------+---------+ + + + documented as of this encounter Visit Diagnoses Not on filedocumented in this encounter"
--- OUTSIDE RECORDS SUMMARY | ~2019-10-10 | XMS | Encounter Summary ---
Demographics + + + | Address | [address] | | | [place] [address] | + + + | Home Phone [...] Team Providers + +------+ + | Care Shelter Advocate Name | Role | Phone | + [...] + + | 09/24/ | Telephone | [facility] | Farrukh Acuna MD | Lab Results | | 2019 | | NEPHROLOGY [place] | [address] [place] | | | | | [address] [place] | [address] [place], [place] | | | | | [address] [place], [place] | [address] | | | | | [address] | | | | | | [phone] | | | +--------+ + + + [...] [place] | | | | | | [address] | | | | | | | | +--------+---------+ + + + | 12/06/ | Office | Nephrology | Farrukh Acuna MD | | | 2020 | Visit | | [address] [facility] | | | | | | [address] [place] | | | | | | [address] | | | | | | | | +--------+---------+ + + + documented as of this encounter Visit Diagnoses Not on filedocumented in this encounter"
--- OUTSIDE RECORDS SUMMARY | ~2019-10-10 | XMS | Encounter Summary ---
Demographics + + + | Address | [address] | | | [place] [address] | + + + | Home Phone [...] Team Providers + +------+ + | Care Utilization Review Specialist Name | Role | Phone | + +------+ + | Rahul Silva MD | PCP | | + +------+ + Encounter Details +--------+ + + + + | Date | Type | Department | Care Team | Description | +--------+ + + + + | 05/27/ | Orders Only | [facility] | Farrukh Acuna MD | | | 2017 | | NEPHROLOGY [place] | [address] [place] | | | | | [address] [place] | [address] [place], [place] | | | | | [address] [place], [place] | [address] | | | | | [address] | | | | | | [phone] | | | +--------+ + + + [...] [place] | | | | | | [address] | | | | | | | | +--------+---------+ + + + | 12/06/ | Office | Nephrology | Farrukh Acuna MD | | | 2020 | Visit | | [address] [place] | | | | | | [address] [place] | | | | | | [address] | | | | | | | [...] + + + | RED CELL | 3.55 (A) | 4.3 - 5.7 10 | EXTERNAL | | | COUNT | | | LAB | | + + + + + + | Hgb | 10.5 (A) | 13.5 - 18.0 [...] | | | LAB | | | [facility] | | | | | + + [...]
--- OUTSIDE RECORDS SUMMARY | ~2019-10-10 | XMS | Encounter Summary ---
Demographics + + + | Address | [address] | | | [place] [address] | + + + | Home Phone [...] Team Providers + +------+ + | Care Sliver Handler Name | Role | Phone | + +------+ + | Rahul Silva MD | PCP | | + +------+ + Encounter Details +--------+ + + + + | Date | Type | Department | Care Team | Description | +--------+ + + + + | 06/23/ | Orders Only | [facility] | Provider, | Chronic kidney | | 2019 | | SYSTEM GENERIC OP | [address], [address] | disease, stage IV | | | | CONVERSION [address] | [address] | (severe) ([facility]); | | | | [address] [place], [place] | [place] [address] | Persistent | | | | [address] | | proteinuria; | | | | [phone] | | Secondary | | | | | | hyperparathyroidism | | | | | | of renal origin | | | | | | ([facility]); Family | | | | | | [...] [place] | | | | | | [address] | | | | | | | | +--------+---------+ + + + | 12/06/ | Office | Nephrology | Farrukh Acuna MD | | | 2019 | Visit | | [address] [facility] [place] | | | | | | [address] [place] | | | | | | [address] | | | | | | | [...] Expires: | | | | | (severe) ([facility]) | 03/08/2020 | | | | | [...] origin | | | | | | ([facility]) Persistent | | | | | | proteinuria | | + +------+--------+ + + | Renal Function Panel | Lab | Routin | Chronic kidney | Expected: | | | | e | disease, stage IV | 08/01/2019, Expires: | | | | | (severe) ([facility]) | 05/31/2020 | | | | | Chronic kidney | | | | | | disease, stage IV | | | | | | (severe) ([facility]) | | | | | | Family [...] origin | | | | | | ([facility]) Persistent | | | | | | [...] origin | | | | | | ([facility]) Persistent | | | | | | proteinuria | | + +------+--------+ + + | Ferritin | Lab | Routin | Chronic kidney | Expected: | | | | e | disease, stage IV | 08/01/2019, Expires: | | | | | (severe) ([facility]) | 05/31/2020 | | | | | Chronic kidney | | | | | | disease, stage IV | | | | | | (severe) ([facility]) | | | | | | Family [...] origin | | | | | | ([facility]) Persistent | | | | | | proteinuria | | + +------+--------+ + + | Parathyroid Hormone, | Lab | Routin | Chronic kidney | Expected: | | Intact | | e | disease, stage IV | 08/01/2019, Expires: | | | | | (severe) ([facility]) | 05/31/2020 | | | | | Chronic kidney | | | | | | disease, stage IV | | | | | | (severe) ([facility]) | | | | | | Family [...] origin | | | | | | ([facility]) Persistent | | | | | | proteinuria | | + +------+--------+ + + documented as of this encounter Visit Diagnoses + + | Diagnosis | + + | Chronic kidney disease, stage IV (severe) ([facility]) Chronic kidney disease, Stage IV | | (severe) | + + | Persistent proteinuria Proteinuria | + + | Secondary hyperparathyroidism of renal origin (HCC) Secondary hyperparathyroidism (of | | renal origin) | + + | Family history of ischemic heart disease and other diseases of the circulatory system | + + documented in this encounter"
--- OUTSIDE RECORDS SUMMARY | ~2019-10-10 | XMS | Encounter Summary ---
Demographics + + + | Address | [address] | | | [place] [address] | + + + | Home Phone [...] Team Providers + +------+ + | Care Hospice Director Name | Role | Phone | + +------+ + | Rahul Silva MD | PCP | | + +------+ + Encounter Details +--------+ + + + + | Date | Type | Department | Care Team | Description | +--------+ + + + + | 06/23/ | Orders Only | [facility] | Provider, | Chronic kidney | | 2019 | | SYSTEM GENERIC OP | [address], [address] | disease, stage IV | | | | CONVERSION [address] | [address] | (severe) ([facility]); | | | | [address] [place], [place] | [place] [address] | Persistent | | | | [address] | | proteinuria; | | | | [phone] | | Secondary | | | | [...] [place] | | | | | | [address] | | | | | | | | +--------+---------+ + + + | 12/06/ | Office | Nephrology | Farrukh Acuna MD | | | 2019 | Visit | | [address] [facility] [place] | | | | | | [address] [place] | | | | | | [address] | | | | | | | [...]
--- OUTSIDE RECORDS SUMMARY | ~2019-10-10 | XMS | Encounter Summary ---
Demographics + + + | Address | [address] | | | [place] [address] | + + + | Home Phone [...] Team Providers + +------+ + | Care Police Lieutenant Name | Role | Phone | + [...] [address] | | | | | [place], [place] | [place], [place] | | | | | [address] | [address] | | | | | [phone] | [phone] | | | | | | | [...] [place] | | | | | | [address] | | | | | | | | +--------+---------+ + + + | 12/06/ | Office | Nephrology | Farrukh Acuna MD | | | 2019 | Visit | | [address] [facility] [place] | | | | | | [address] [place] | | | | | | [address] | | | | | | | [...]
--- OUTSIDE RECORDS SUMMARY | ~2019-10-10 | XMS | Encounter Summary ---
Demographics + + + | Address | [address] | | | [place] [address] | + + + | Home Phone [...] Providers + +------+ + | Care Consulting Psychiatrist Name | Role | Phone | + +------+ + | Rahul Silva MD | PCP | | + +------+ + Encounter Details +--------+ + + + + | Date | Type | Department | Care Team | Description | +--------+ + + + + | 05/27/ | Orders Only | [facility] | Conversion | | | 2018 | | NEPRHOLOGY [place] | Transaction, | | | | | [address] | Provider Unknown | | | | | [address] [place], [place] | [phone] | | | | | [address] | (Fax) | | | | | [phone] | | | +--------+ + + + [...] [place] | | | | | | [address] | | | | | | | | +--------+---------+ + + + | 12/06/ | Office | Nephrology | Farrukh Acuna MD | | | 2019 | Visit | | [address] | | | | | | [address] [place] | | | | | | [address] | | | | | | | [...] | + +---------+ + + External Lab: DUNIA (05/27/2018 12:00 AM PDT) + + + [...]
--- OUTSIDE RECORDS SUMMARY | ~2019-10-10 | XMS | Encounter Summary ---
Demographics + + + | Address | [address] | | | [place] [address] | + + + | Home Phone [...] + | 10/05/ | Orders Only | [facility] | Farrukh Acuna MD | Essential | | 2019 | | NEPHROLOGY [place] | [address] [place] | hypertension | | | | [address] | [address] [place], [place] | (Primary Dx); [address] | | | | [address] | [address] | deficiency; Anemia | | | | [place], [place] | | of chronic kidney | | | | [address] | | failure, stage 5 | | | | [phone] | | (HCC) | +--------+ + + [...] [place] | | | | | | [id number] | | | | | | | | +--------+---------+ + + + | 12/06/ | Office | Nephrology | Farrukh Acuna MD | | | 2019 | Visit | | [address] [facility] | | | | | | [address] [place], [place] | | | | | | [address] | | | | | | | [...]
--- OUTSIDE RECORDS SUMMARY | ~2019-10-10 | XMS | Encounter Summary ---
Demographics + + + | Address | [address] | | | [place] [address] | + + + | Home Phone [...] Author + + + | Author | [facility] | + + + | Organization | [facility] | + + + | Address | Unknown | + + + | Phone | Unavailable | + + + Support + + + + + | Name | Relationship | Address | Phone | + + + + + | Darci Zavala | [address] | [place] | | | | | [address] | | + + + + + Care Team Providers + +------+ + | Care Meter Repairer Name | Role | Phone | + +------+ + PCP | Unavailable | + +------+ + Encounter Details +--------+ + + + + | Date | Type | Department | Care Team | Description | +--------+ + + + + | 08/05/ | Transcribed | Allergy Clinic at | Oliva, Other | Transcribed | | 1995 | | [facility] [address] | | | | | | [address] | | | | | | Mailcode: [id number] | | | | | | [address] | | | | | | [place], | | | | | | [place] [address] | | | | | | [phone] | | | +--------+ + + + [...] as of this encounter Progress Notes Interface, Commercial Representative In - 02/17/2007 3:02 AM PDT [address] [address] or August 05, 1996 RUBIA VALLES MD [address] [facility] [address] RE:PORFIRIO ZAVALA MR#:[id number] Valles: Mr. Porfirio Zavala returned to the [facility] Neurosurgery [facility] today for a followup visit. 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 Mr. Zavala has failed numerous femoral nerve blocks, sciatic nerve blocks, and spinal cord blocks, and was at one time enrolled in the [facility] Pain Clinic. Mr. Zavala's pain is currently [...] dictating for: Alina Moise M.D. Professor and Goldbeater, Division of Neurosurgery MARYANA/sajan cc: Seven Khan, Ph.D. Clinical Psychologist-Neuropsychologist documented in this encounter Plan of Treatment Not on filedocumented as of this encounter Visit Diagnoses Not on filedocumented in this encounter"
--- OUTSIDE RECORDS SUMMARY | ~2019-10-10 | XMS | Encounter Summary ---
Demographics + + + | Address | [address] | | | [place] [address] | + + + | Home Phone [...] [place] | | | | | [address] | | + + + + + Care Team Providers + +------+ + | Care Head Animal Trainer Name | Role | Phone | + +------+ + PCP | Unavailable | + +------+ + Encounter Details +--------+ + + + + | Date | Type | Department | Care Team | Description | +--------+ + + + + | 06/07/ | Transcribed | Allergy Clinic at | [facility] | Transcribed | | 1996 | | [facility] [address] | | | | | | [address] | | | | | | Mailcode: [address] | | | | | | [address] | | | | | | [address], | | | | | | [place] [address] | | | | | | [phone] | | | +--------+ + + + [...] as of this encounter Progress Notes Interface, Instructional Resource Teacher In - 01/22/2007 3:04 AM PST [address] [address] or June 07, 1997 Pravin VALLES MD [address] [place] [address] [place] [address] RE:Kavon Andujar MR#:[id number] Valles: I saw Kavon Andujar in the Neurology Clinic today and have enclosed a copy of my note. 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 He [...] Jacobson will also require reevaluation in Dr. Miose's clinic for consideration regarding ablative stereotactic procedures [...] over the telephone. Sincerely, Michelle Landon M.D. Dental Amalgam Processor, Neurology JINNY/ C: 06/13/97 cc: Alina Moise M.D. Division of Neurosurgery [facility] Robert Carlson M.D. Division of Vascular Surgery [facility] documented in this encounter Plan of Treatment Not on filedocumented as of this encounter Visit Diagnoses Not on filedocumented in this encounter
--- OUTSIDE RECORDS SUMMARY | ~2019-10-10 | XMS | Encounter Summary ---
Demographics + + + | Address | [address] | | | [place] [address] | + + + | Home Phone [...] Team Providers + +------+ + | Care Night Warehouse Manager Name | Role | Phone | + +------+ + | Rahul Silva MD | PCP | | + +------+ + Encounter Details +--------+ + + + + | Date | Type | Department | Care Team | Description | +--------+ + + + + | 03/26/ | Orders Only | [facility] | Kai [place] | | | 2016 | | CONVERSION [address] | MD Ils[address] | | | | | [address] | [address] | | | | | [place], [place] | [place] [address] | | | | | [address] | | | | | | [phone] | (Fax) | | +--------+ + + + + [...] [place] | | | | | | [address] | | | | | | | | +--------+---------+ + + + | 12/06/ | Office | Nephrology | Farrukh Acuna MD | | | 2019 | Visit | | [address] | | | | | | [address] [place] | | | | | | [address] | | | | | | | [...] : 1940 | | | Performing Physician: KAI BIRMINGHAM MD | | | | | [...] pressures of 5-10mmHg. MEASUREMENTS | | | Gate Services Supervisor: DH Authenticated by: KAI BIRMINGHAM MD Report | | | Date/Time: 03-27-2016 13:39:46 | | + + + + + | Procedure Note | + + | Wiley, Rad Conversion - 07/22/2019 7:56 PM PDT Patient Name: Demetra Anduajr of | | : 1940 Performing Physician: KAI BIRMINGHAM | | MD INDICATIONS H | | [place], SOB CONCLUSIONS [...] venous pressures of 5-10mmHg. | | MEASUREMENTS Gate Services Supervisor: BAIRONuthenticated by: KAI Ho | | Date/Time: 03-27-2016 13:39:46 IMPRESSION: 1. [...] | |MEASUREMENTS | | | | | |Gate Services Supervisor: | |Authenticated by: KAI BIRMINGHAM MD | |Report Date/Time: 03-27-2016 13:39:46 [...]
--- OUTSIDE RECORDS SUMMARY | ~2019-10-10 | XMS | Encounter Summary ---
Demographics + + + | Address | [address] | | | [place] [address] | + + + | Home Phone [...] Team Providers + +------+ + | Care Power Operator Name | Role | Phone | [...] + + | 09/01/ | Telephone | [facility] | Farrukh Acuna MD | Other | | 2019 | | NEPRHOLOGY [place] | [address] | | | | | [address] | [address] [place], [place] | | | | | [address] [place], [place] | [address] | | | | | [address] | | | | | | [phone] | | | +--------+ + + + [...] [place] | | | | | | [address] | | | | | | | | +--------+---------+ + + + | 12/06/ | Office | Nephrology | Farrukh Acuna MD | | | 2020 | Visit | | [address] [facility] | | | | | | [address] [place], [place] | | | | | | [address] | | | | | | | | +--------+---------+ + + + documented as of this encounter Visit Diagnoses Not on filedocumented in this encounter"
--- OUTSIDE RECORDS SUMMARY | ~2019-10-10 | XMS | Encounter Summary ---
Demographics + + + | Address | [address] | | | [place] [address] | + + + | Home Phone [...] Team Providers + +------+ + | Care Circuit Breaker Assembler Name | Role | Phone | [...] [address] | | | | | [place], [place] | [place], [place] | | | | | [address] | [address] | | | | | [phone] | [phone] | | | | | | | [...] [place] | | | | | | [address] | | | | | | | | +--------+---------+ + + + | 12/06/ | Office | Nephrology | Farrukh Acuna MD | | | 2019 | Visit | | [address] | | | | | | [address] [place] | | | | | | [address] | | | | | | | | +--------+---------+ + + + documented as of this encounter Procedures + +--------+ + + + | Procedure Name | Priori | Date/Time | Associated Diagnosis | Comments | | | ty | | | | + +--------+ + + + | AMYLASE | Routin | 11/10/2016 | | Results for this | | | e | 4:27 AM | | procedure are in the | | | | PST | | results section. | + +--------+ + + + documented in this encounter Results Amylase (11/10/2016 4:27 AM PST) + +---------+ + + + | Component | Value | Ref Range | Performed | Pathologist | | | | | At | Signature | + +---------+ + + + | Amylase | 131 (H) | 25 - 115 U/L | [...]
--- OUTSIDE RECORDS SUMMARY | ~2019-10-10 | XMS | Encounter Summary ---
Demographics + + + | Address | [address] | | | [place] [address] | + + + | Home Phone | | + + + | Preferred Language | Unknown | + + + | Marital Status | Single | + + + | Bahai Affiliation | PRO | + + + [...] [place] | | | | | [address] | | + + + + + Care Team Providers + +------+ + | Care Machine Welder Name | Role | Phone | + [...] Pavilion | | | | | | [place], [place] | | | | | | [address] | | | | | | [phone] | | | +--------+ + + + [...]
--- OUTSIDE RECORDS SUMMARY | ~2019-10-10 | XMS | Encounter Summary ---
Demographics + + + | Address | [address] | | | [place] [address] | + + + | Home Phone [...] Team Providers + +------+ + | Care Sap Technical Developer Name | Role | Phone | [...] + + | 09/01/ | Telephone | [facility] | Brian Orosco MD | Advice Only | | 2019 | | VASCULAR SURGERY | [address] | (surgery) | | | | [address] | [place], [place] | | | | | [place], [place] | [address] | | | | | [address] | [phone] | | | | | [phone] | | | +--------+ + + + [...] [place] | | | | | | [address] | | | | | | | | +--------+---------+ + + + | 12/06/ | Office | Nephrology | Farrukh Acuna MD | | | 2020 | Visit | | [address] [facility] | | | | | | [facility] | | | | | | [address] | | | | | | | | +--------+---------+ + + + documented as of this encounter Visit Diagnoses Not on filedocumented in this encounter"
--- OUTSIDE RECORDS SUMMARY | ~2019-10-10 | XMS | Encounter Summary ---
Demographics + + + | Address | [address] | | | [place] [address] | + + + | Home Phone [...] Providers + +------+ + | Care Gas System Operator Name | Role | Phone | + +------+ + | Rahul Silva MD | PCP | | + +------+ + Reason for Visit + + + | Reason | Comments | + + + | Appointment | | + + + Encounter Details +--------+ + + + + | Date | Type | Department | Care Team | Description | +--------+ + + + + | 09/28/ | Telephone | [facility] | Jason Sandy D, | Appointment | | 2018 | | VASCULAR SURGERY | RN | | | | | [address] | | | | | | [place] | | | | | | [address] | | | | | | [phone] | | | +--------+ + + + [...] [place] | | | | | | [address] | | | | | | | | +--------+---------+ + + + | 01/06/ | Office | Nephrology | Farrukh Acuna MD | | | 2019 | Visit | | [address] [facility] | | | | | | [address] [facility] | | | | | | [address] | | | | | | | | +--------+---------+ + + + documented as of this encounter Visit Diagnoses Not on filedocumented in this encounter"
--- OUTSIDE RECORDS SUMMARY | ~2019-10-10 | XMS | Encounter Summary ---
Demographics + + + | Address | [address] | | | [place] [address] | + + + | Home Phone [...] Team Providers + +------+ + | Care Nutrition Services Worker Name | Role | Phone | [...] + + | 09/03/ | Telephone | [facility] | Simon, | Lab Results | | 2019 | | NEPHROLOGY [place] | [facility] | | | | | [address] | Early Childhood Educator Aide | | | | | [address] [place], [place] | | | | | | [address] | | | | | | [phone] | | | +--------+ + + + [...] [place] | | | | | | [address] | | | | | | | | +--------+---------+ + + + | 12/06/ | Office | Nephrology | Farrukh Acuna MD | | | 2019 | Visit | | [address] [facility] | | | | | | [facility] | | | | | | [address] | | | | | | | | +--------+---------+ + + + documented as of this encounter Visit Diagnoses Not on filedocumented in this encounter"
--- OUTSIDE RECORDS SUMMARY | ~2019-10-10 | XMS | Encounter Summary ---
Demographics + + + | Address | [address] | | | [place] [address] | + + + | Home Phone [...] Providers + +------+ + | Care Environmental Field Services Technician Name | Role | Phone | [...] [address] | | | | | [place], [place] | [place], [place] | | | | | [address] | [address] | | | | | [phone] | [phone] | | | | | | | [...] [place] | | | | | | [address] | | | | | | | | +--------+---------+ + + + | 12/06/ | Office | Nephrology | Farrukh Acuna MD | | | 2019 | Visit | | [address] [facility] | | | | | | [address] [place] | | | | | | [address] | | | | | | | [...]
--- OUTSIDE RECORDS SUMMARY | ~2019-10-10 | XMS | Encounter Summary ---
Demographics + + + | Address | [address] | | | [place] [address] | + + + | Home Phone [...] Team Providers + +------+ + | Care Top Flavor Attendant Name | Role | Phone | + +------+ + | Rahul Silva MD | PCP | | + +------+ + Encounter Details +--------+ + + + + | Date | Type | Department | Care Team | Description | +--------+ + + + + | 04/10/ | Orders Only | [facility] | Conversion | | | 2014 | | NEPRHOLOGY [place] | Transaction, | | | | | [address] | Provider Unknown | | | | | [address] [place], [place] | | | | | | [address] | (Fax) | | | | | [phone] | | | +--------+ + + + [...] [place] | | | | | | [address] | | | | | | | | +--------+---------+ + + + | 12/06/ | Office | Nephrology | Farrukh Acuna MD | | | 2019 | Visit | | [address] | | | | | | [address] [place] | | | | | | [address] | | | | | | | | +--------+---------+ + + + documented as of this encounter Procedures + +--------+ + + + | Procedure Name | Priori | Date/Time | Associated Diagnosis | Comments | | | ty | | | | + +--------+ + + + | EXTERNAL LAB: [facility] | Routin | 04/10/2015 | | Results for this | | | e | 12:00 AM | | procedure are in the | | | | PDT | | results section. | + +--------+ + + + | BASIC METABOLIC | Routin | 04/10/2015 | | Results for this | | PANEL | e | 12:00 AM | | procedure are in the | | | | PDT | | results section. | + +--------+ + + + documented in this encounter Results External Lab: [facility] (04/10/2015 12:00 AM PDT) + + + + + + | Component | Value | Ref Range | Performed | Pathologist | | | | | At | Signature | + + + + + + | WBC | 5.1 | 4.5 - 11.0 | EXTERNAL | | | | | [...] + + + + | Hematocrit, | 31.9 (A) | 41 - 50 % | EXTERNAL | | | POC | | | LAB | | + + + + + + | MCV | 93.4 | 81 - 99 fL | EXTERNAL [...] + + + + | Platelet | 244 | K/ L | EXTERNAL | | [...] | | | + +---------+ + + Basic Metabolic Panel (04/10/2015 12:00 AM PDT) + + + + + + | Component | Value | Ref Range | Performed | Pathologist | | | | | At | Signature | + + + + + + | Glucose, | 185 (A) | 70 - 100 mg/dL | EXTERNAL | | | Fasting | | | LAB | | + + + + + + | BUN | 26 (A) | 6 - 23 mg/dL | EXTERNAL | | | | | | LAB | | + + + + + + | Creatinine | 1.61 (A) | 0.70 - 1.18 | EXTERNAL [...] + + + + | Estimated | 42 | mg/dL | EXTERNAL | | | [...]
--- OUTSIDE RECORDS SUMMARY | ~2019-10-10 | XMS | Encounter Summary ---
Demographics + + + | Address | [address] | | | [place] [address] | + + + | Home Phone [...] Providers + +------+ + | Care Casting Sorter Name | Role | Phone | [...] [address] | | | | | [place], [place] | [place], [place] | | | | | [address] | [address] | | | | | [phone] | [phone] | | | | | | | [...] [place] | | | | | | [address] | | | | | | | | +--------+---------+ + + + | 12/06/ | Office | Nephrology | Farrukh Acuna MD | | | 2019 | Visit | | [address] | | | | | | [address] [place] | | | | | | [address] | | | | | | | | +--------+---------+ + + + documented as of this encounter Procedures + +--------+ + + + | Procedure Name | Priori | Date/Time | Associated Diagnosis | Comments | | | ty | | | | + +--------+ + + + | CK TOTAL | Routin | 11/08/2016 | | Results for this | | | e | 4:37 AM | | procedure are in the | | | | PST | | results section. | + +--------+ + + + documented in this encounter Results CK Total (11/08/2016 4:37 AM PST) + +-------+ + + + | Component | Value | Ref Range | Performed | Pathologist | | | | | At | Signature | + +-------+ + + + | CK, Total | 156 | 55 - 400 U/L | EXTERNAL [...]
--- OUTSIDE RECORDS SUMMARY | ~2019-10-10 | XMS | Encounter Summary ---
Demographics + + + | Address | [address] | | | [place] [address] | + + + | Home Phone [...] Team Providers + +------+ + | Care Broker Name | Role | Phone | + [...] | Transaction, | | | | | [place], [place] | Provider Unknown | | | | | [address] | | | | | | [phone] | | | +--------+ + + + [...] [place] | | | | | | [address] | | | | | | | | +--------+---------+ + + + | 12/06/ | Office | Nephrology | Farrukh Acuna MD | | | 2019 | Visit | | [address] [facility] [address] | | | | | | [address] [place] | | | | | | [address] | | | | | | | [...]
--- OUTSIDE RECORDS SUMMARY | ~2019-10-10 | XMS | Encounter Summary ---
Demographics + + + | Address | [address] | | | [place] [address] | + + + | Home Phone | | + + + | Preferred Language | Unknown | + + + | Marital Status | Single | + + + | Moravian Affiliation | PRO | + + + | Race | White | + + + | Ethnic Group | Not or | + + + Author + + + | Author | [facility] | + + + | Organization | [facility] | + + + | Address | Unknown | + + + | Phone | Unavailable | + + + Support + + + + + | Name | Relationship | Address | Phone | + + + + + | Darci Andujar | [address] | [place] | | | | | [address] | | + + + + + Care Team Providers + +------+ + | Care Best Worker Name | Role | Phone | [...] | | | amputation | [place], | [place], [place] | | | | | stump, | [place] [address] | [address] | | | | | unspecified | Phone: | Phone: | | | | | | [phone] | [phone] | | | | | | Fax: | Fax: | | | | | | [phone] | [phone] | +--------+--------+ + + + + Encounter Details +--------+---------+ + + + | Date | Type | Department | Care Team | Description | +--------+---------+ + + + | 04/10/ | Office | [facility] Comprehensive | Seven Reilly MD | Low back pain; | | 2009 | Visit | Pain Center at | [address] | Herniated lumbar | | | | [facility] | [place], [place] | intervertebral disc; | | | | [address] | [address] | Stump pain (HCC) | | | | Mailcode: [facility] | [phone] | | | | | [facility] | | | | | | and Healing, | | | | | | Building | | | | | | Floor [place], [place] | | | | | | [address] | | | | | | [phone] | | | +--------+---------+ + + + [...] evaluated the patient with Fellow Andr jas Maritnez MD, who conducted the history. I reviewed the history in detail. I was present for the examination and formulation portions of the encounter. I agree with the findings and the plan of care as documented in this note, and I edited the trainee's note. Seven Reilly MD, DABA, [facility] P DTMariano Martinez MD - 04/10/2010 12:30 PM PDT [facility] Office Visit 04/10/2010 Kavon Andujar; ; : 1940 Mr. Andujar was referred for pain management consultation by RAHUL COYNE MD [address] [place] [address], [place] [address] Reason for visit: Chief Complaint Patient presents [...] pain. He has been referred to the [facility] for consultation regarding this [...] that the most effective treatments include: medications. TANK WORKER Brief Pain Inventory: (ten= worst possible pain [...] above. As part of today's visit the [facility] new patient questionnaire was review [...] you expect from your visits to the [facility] ? Don't know Vital Signs: [...] and summary of old medical records (source: [employer]), as summarized in the body of the [...] generic medication. Follow up: none scheduled at [facility]. Mariano Martinez MD Pain Fellow [facility] documented in this encounter Plan of [...]
--- OUTSIDE RECORDS SUMMARY | ~2019-10-10 | XMS | Encounter Summary ---
Demographics + + + | Address | [address] | | | [place] [address] | + + + | Home Phone [...] Team Providers + +------+ + | Care Glue Bone Crusher Name | Role | Phone | + [...] + + | 09/10/ | Hospital | [facility] | Brian Orosco MD | CKD (chronic kidney | | 2019 | Encounter | [facility] | [address] | disease) stage 5, | | | | OPERATING ROOM [address] | [place], [place] | GFR less than [address] | | | | [address] | [address] | ml/min ([facility]) | | | | [place], [place] | [phone] | | | | | [address] | | | | | | [phone] | | | +--------+ + + + [...] dialysis shunt, please contact your ysician at [phone]. Discharge instructions for Diagnostic Imaging sedation patients [...] . For any severe symptoms, please call [phone] or report to your nearest Emergency Department. Acetaminophen; Hydrocodone tablets or capsules Brand Names: Anexsia, Lorcet, Lorcet HD, Lorcet Plus, Lortab, Rock View, Verdrocet, Vicodin, Vi codin ES, Vicodin HP, [...] information carefully each time. Talk to your glove presser regarding the use of this medicine in children. Special care may be needed. What side effects may I notice from receiving this medicine? Side effects that you should report to your doctor or health lawn care professional as soon as p ossible: allergic reactions [...] attention (report to your doctor or health lawn care professional if they continue or are bothersome): constipation [...] to an official disposal site. Contact the [facility] at [phone] or your [facility] government to find a site. If [...] this medicine? Tell your doctor or health lawn care professional if your pain does not go away, [...] cuts, scrapes, or blows. Date Last Reviewed: 12/01/201619991001-6046 [employer] [place], [place] [address]. All righ ts reserved. This information is [...] ([facility]) | | | | | | + [...] Inject 25 Units | | 0 | 20 | | | 100 UNIT/ML | under [...] 0 | 06/18/20 | | | (EDIN BAHENA) 8 mg | | | | 19 [...] and bl ood clots prevention. Prescription for Rock View given and side effects were explained. Patient states that he also takes oxycodone at home; patient and his family were educated about taki ng oxycodone or Rock View only and not both. OTC Tylenol intake [...] [place] | | | | | | [address] | | | | | | | | +--------+---------+ + + + | 12/06/ | Office | Nephrology | Farrukh Acuna MD | | | 2019 | Visit | | [address] | | | | | | [address] [place] | | | | | | [address] | | | | | | | [...] | | | POC | performed at [facility];[address] | | LABORATORY | | | | [address];[place] | | | | | | [address] | | | | + + + + + + + + | Specimen | + + | | + + + + + + + | Performing | Address | City/State/Zipcode | Phone Number | | Organization | | | | + + + + + | [facility] | [address] | [place] [address] | [phone] | + + + + + POC Glucose (09/10/2019 12:13 PM PDT) + + + + + + | Component | Value | Ref Range | Performed | Pathologist | | | | | At | Signature | + + + + + + | Glucose, | 150 (H)Comment: Testing | 65 - 99 mg/dL | [place] | | | POC | performed at [facility];[address] | | LABORATORY | | | | [address];[place] | | | | | | [address] | | | | + + + + + + + + | Specimen | + + | | + + + + + + + | Performing | Address | City/State/Zipcode | Phone Number | | Organization | | | | + + + + + | [facility] | [address] | [place] [address] | [phone] | + + + + + documented [...] One week or | | | longer, omsmia-irs-jyivd use of | | | at least [...]
--- OUTSIDE RECORDS SUMMARY | ~2019-10-10 | XMS | Encounter Summary ---
Demographics + + + | Address | [address] | | | [place] [address] | + + + | Home Phone [...] Team Providers + +------+ + | Care Public Health Staff Nurse Name | Role | Phone | + +------+ + | Rahul Silva MD | PCP | | + +------+ + Encounter Details +--------+ + + + + | Date | Type | Department | Care Team | Description | +--------+ + + + + | 02/12/ | Orders Only | [facility] | Farrukh Acuna MD | | | 2018 | | NEPHROLOGY [place] | [address] | | | | | [address] [place] | [address] [place], [place] | | | | | [address] [place], [place] | [address] | | | | | [address] | | | | | | [phone] | | | +--------+ + + + [...] [place] | | | | | | [address] | | | | | | | | +--------+---------+ + + + | 12/06/ | Office | Nephrology | Farrukh Acuna MD | | | 2020 | Visit | | [address] | | | | | | [address] [place] | | | | | | [address] | | | | | | | [...] + + + | RED CELL | 3.5 (A) | 4.3 - 5.7 [...] | | | LAB | | | [facility] | | | | | + + [...]
--- OUTSIDE RECORDS SUMMARY | ~2019-10-10 | XMS | Encounter Summary ---
Demographics + + + | Address | [address] | | | [place] [address] | + + + | Home Phone [...] Author | [facility] [...] Team Providers + +------+ + | Care Office Aide Name | Role | Phone | + +------+ + | Rahul Silva MD | PCP | | + +------+ + Encounter Details +--------+ + + + + | Date | Type | Department | Care Team | Description | +--------+ + + + + | 09/01/ | Orders Only | [facility] | Farrukh Acuna MD | | | 2013 | | NEPHROLOGY [place] | [address] [place] | | | | | [address] [place] | [address] [place], [place] | | | | | [address] [place], [place] | [address] | | | | | [address] | | | | | | [phone] | | | +--------+ + + + [...] [place] | | | | | | [address] | | | | | | | | +--------+---------+ + + + | 12/06/ | Office | Nephrology | Farrukh Acuna MD | | | 2019 | Visit | | [address] | | | | | | [address] [place] | | | | | | [address] | | | | | | | [...] | | | LAB | | | [place] | | | | | + + [...]
--- OUTSIDE RECORDS SUMMARY | ~2019-10-10 | XMS | Encounter Summary ---
Demographics + + + | Address | [address] | | | [place] [address] | + + + | Home Phone [...] Providers + +------+ + | Care Community Engagement Representative Name | Role | Phone | + +------+ + | Rahul Silva MD | PCP | | + +------+ + Encounter Details +--------+ + + + + | Date | Type | Department | Care Team | Description | +--------+ + + + + | 10/28/ | Orders Only | [facility] | Conversion | | | 2016 | | NEPHROLOGY [place] | Transaction, | | | | | [address] | Provider Unknown | | | | | [address] [place] | | | | | | [address] | (Fax) | | | | | [phone] | | | +--------+ + + + [...] [place] | | | | | | [address] | | | | | | | | +--------+---------+ + + + | 12/06/ | Office | Nephrology | Farrukh Acuna MD | | | 2019 | Visit | | [address] | | | | | | [address] [place] | | | | | | [address] | | | | | | | [...]
--- OUTSIDE RECORDS SUMMARY | ~2019-10-10 | XMS | Encounter Summary ---
Demographics + + + | Address | [address] | | | [place] [address] | + + + | Home Phone [...] Team Providers + +------+ + | Care Pathology Laboratory Director Name | Role | Phone | [...] [address] | | | | | [place], [place] | [place], [place] | | | | | [address] | [address] | | | | | [phone] | [phone] | | | | | | | [...] [place] | | | | | | [address] | | | | | | | | +--------+---------+ + + + | 12/06/ | Office | Nephrology | Farrukh Acuna MD | | | 2019 | Visit | | [address] [facility] | | | | | | [address] [place] | | | | | | [address] | | | | | | | [...] + + | Attending/Visit Provider: GER MD, Cayr LOVE, , , CELSA, | EXTERNAL LAB [...]
--- OUTSIDE RECORDS SUMMARY | ~2019-10-10 | XMS | Encounter Summary ---
Demographics + + + | Address | [address] | | | [place] [address] | + + + | Home Phone | | + + + | Preferred Language | Unknown | + + + | Marital Status | | + + + | Jain Affiliation | 1077 | + + + | Race | Unknown | + + + | Ethnic Group | Unknown | + + + Author + + + | Author | [facility] | | | and [place] | + + + | Organization | [facility] | | | and [...] Team Providers + +------+ + | Care Gut Puller Name | Role | Phone | [...] [address] | | | | | [place], [place] | [place], [place] | | | | | [address] | [address] | | | | | [phone] | [phone] | | | | | | | [...] [place] | | | | | | [address] | | | | | | | | +--------+---------+ + + + | 12/06/ | Office | Nephrology | Farrukh Acuna MD | | | 2019 | Visit | | [address] [facility] [place] | | | | | | [address] [place] | | | | | | [address] | | | | | | | [...]
--- OUTSIDE RECORDS SUMMARY | ~2019-10-10 | XMS | Encounter Summary ---
Demographics + + + | Address | [address] | | | [place] [address] | + + + | Home Phone [...] Team Providers + +------+ + | Care Classified Copy Control Clerk Name | Role | Phone | + +------+ + | Rahul Silva MD | PCP | | + +------+ + Encounter Details +--------+ + + + + | Date | Type | Department | Care Team | Description | +--------+ + + + + | 07/20/ | Orders Only | [facility] | Farrukh Acuna MD | Stage 4 chronic | | 2019 | | NEPHROLOGY [place] | [address] [place] | kidney disease (HCC) | | | | [address] | [address] [place], [place] | (Primary Dx); | | | | [address] | [address] | Persistent | | | | [place], [place] | | proteinuria; | | | | [address] | | Secondary | | | | [phone] | | hyperparathyroidism | | | | [...] | | | | | [place], [place] | | | | | | [id number] | | | | | | | | +--------+---------+ + + + | 12/06/ | Office | Nephrology | Farrukh Acuna MD | | | 2019 | Visit | | [address] [facility] [place] | | | | | | [address] [place] | | | | | | [address] | | | | | | | [...]
--- OUTSIDE RECORDS SUMMARY | ~2019-10-10 | XMS | Encounter Summary ---
Demographics + + + | Address | [address] | | | [place] [address] | + + + | Home Phone [...] Team Providers + +------+ + | Care Wrist Hemmer Name | Role | Phone | + +------+ + | Rahul Silva MD | PCP | | + +------+ + Encounter Details +--------+ + + + + | Date | Type | Department | Care Team | Description | +--------+ + + + + | 09/17/ | Orders Only | [facility] | Collin Mirza, | | | 2015 | | NEPHROLOGY [place] | ASSOCIATE EMBALMER/FUNERAL DIRECTOR [address] | | | | | [address] [place] | [address] | | | | | [address] [place], [place] | [facility] | | | | | [address] | [address] | | | | | [phone] | [phone] | | | | | | | [...] [place] | | | | | | [address] | | | | | | | | +--------+---------+ + + + | 12/06/ | Office | Nephrology | Farrukh Acuna MD | | | 2019 | Visit | | [address] [facility] [place] | | | | | | [address] [place] [address] | | | | | | [address] | | | | | | | [...] | | | LAB | | | GUAMANIAN | | | | | + + [...]
--- OUTSIDE RECORDS SUMMARY | ~2019-10-10 | XMS | Encounter Summary ---
Demographics + + + | Address | [address] | | | [place] [address] | + + + | Home Phone [...] Team Providers + +------+ + | Care Hr Administrator Name | Role | Phone | + +------+ + | Rahul Silva MD | PCP | | + +------+ + Encounter Details +--------+ + + + + | Date | Type | Department | Care Team | Description | +--------+ + + + + | 03/13/ | Orders Only | [facility] | Conversion | | | 2016 | | NEPHROLOGY [place] | Transaction, | | | | | [address] [place] | Provider Unknown | | | | | [address] [place] [address] | | | | | | [address] | (Fax) | | | | | [phone] | | | +--------+ + + + [...] [place] | | | | | | [address] | | | | | | | | +--------+---------+ + + + | 12/06/ | Office | Nephrology | Farrukh Acuna MD | | | 2019 | Visit | | [address] [place] | | | | | | [address] [place] | | | | | | [address] | | | | | | | [...] - 1.030 | EXTERNAL | | | [place] | | | LAB | | + [...] + + + | RED CELL | 3.60 (A) | 4.3 - 5.7 10 | EXTERNAL | | | COUNT | | | LAB | | + + + + + + | Hgb | 10.2 (A) | 13.5 - 18.0 [...] | | | LAB | | | [place] | | | | | + + [...]
--- OUTSIDE RECORDS SUMMARY | ~2019-10-10 | XMS | Encounter Summary ---
Demographics + + + | Address | [address] | | | [place] [address] | + + + | Home Phone [...] Providers + +------+ + | Care Sap Fico Architect Name | Role | Phone | [...] [place] | | | | | [place], [place] | [place], [place] | | | | | [address] | [address] | | | | | [phone] | [phone] | | | | | | | [...] [place] | | | | | | [address] | | | | | | | | +--------+---------+ + + + | 12/06/ | Office | Nephrology | Farrukh Acuna MD | | | 2019 | Visit | | [address] [facility] [place] | | | | | | [address] [place] [address] | | | | | | [address] | | | | | | | [...]
--- OUTSIDE RECORDS SUMMARY | ~2019-10-10 | XMS | Encounter Summary ---
Demographics + + + | Address | [address] | | | [place] [address] | + + + | Home Phone [...] Team Providers + +------+ + | Care Bacteriologist Soil Name | Role | Phone | + [...] + + | 08/13/ | Telephone | [facility] | Farrukh Acuna MD | Other (lab result) | | 2019 | | NEPRHOLOGY [place] | [address] [facility] [address] [place] | | | | | [address] | [address] [place], [place] | | | | | [address] [place], [place] | [address] | | | | | [address] | | | | | | [phone] | | | +--------+ + + + [...] [place] | | | | | | [address] | | | | | | | | +--------+---------+ + + + | 12/06/ | Office | Nephrology | Farrukh Acuna MD | | | 2020 | Visit | | [address] [facility] | | | | | | [address] [place] | | | | | | [address] | | | | | | | | +--------+---------+ + + + documented as of this encounter Visit Diagnoses Not on filedocumented in this encounter"
--- OUTSIDE RECORDS SUMMARY | ~2019-10-10 | XMS | Encounter Summary ---
Demographics + + + | Address | [address] | | | [place] [address] | + + + | Home Phone [...] Team Providers + +------+ + | Care Textile Machinery Sales Representative Name | Role | Phone | + +------+ + PCP | Unavailable | + +------+ + Encounter Details +--------+ + + + + | Date | Type | Department | Care Team | Description | +--------+ + + + + | 12/31/ | [facility] | [facility] | | | | 2000 | Encounter | MED CTR XRAY [address] | | | | | | [address] | | | | | | [place] [address] | | | | | | [phone] | | | +--------+ + + + [...] [place] | | | | | | [address] | | | | | | | | +--------+---------+ + + + | 12/06/ | Office | Nephrology | Farrukh Acuna MD | | | 2019 | Visit | | [address] [facility] | | | | | | [address] [place], [place] | | | | | | [address] | | | | | | | | +--------+---------+ + + + documented as of this encounter Visit Diagnoses Not on filedocumented in this encounter"
--- OUTSIDE RECORDS SUMMARY | ~2019-10-10 | XMS | Encounter Summary ---
Demographics + + + | Address | [address] | | | [place] [address] | + + + | Home Phone [...] Team Providers + +------+ + | Care Transverse Abdominal Muscle Surgeon Name | Role | Phone | + +------+ + | Rahul Silva MD | PCP | | + +------+ + Encounter Details +--------+ + + + + | Date | Type | Department | Care Team | Description | +--------+ + + + + | 02/24/ | Orders Only | [facility] | Conversion | | | 2016 | | NEPHROLOGY [place] | Transaction, | | | | | [address] | Provider Unknown | | | | | [address] [place] [address] | | | | | | [address] | (Fax) | | | | | [phone] | | | +--------+ + + + [...] [place] | | | | | | [address] | | | | | | | | +--------+---------+ + + + | 12/06/ | Office | Nephrology | Farrukh Acuna MD | | | 2019 | Visit | | [address] [place] | | | | | | [address] [place] | | | | | | [address] | | | | | | | [...] - 1.030 | EXTERNAL | | | [place] | | | LAB | | + [...] | | | LAB | | | [place] | | | | | + + [...]
--- OUTSIDE RECORDS SUMMARY | ~2019-10-10 | XMS | Encounter Summary ---
Demographics + + + | Address | [address] | | | [place] [address] | + + + | Home Phone [...] Team Providers + +------+ + | Care District Branch Manager Name | Role | Phone | + +------+ + | Rahul Silva MD | PCP | | + +------+ + Encounter Details +--------+ + + + + | Date | Type | Department | Care Team | Description | +--------+ + + + + | 06/15/ | Orders Only | [facility] | Conversion | | | 2019 | | NEPHROLOGY [place] | Transaction, | | | | | [address] [place] | Provider Unknown | | | | | [address] [place] | | | | | | [address] | (Fax) | | | | | [phone] | | | +--------+ + + + [...] [place] | | | | | | [address] | | | | | | | | +--------+---------+ + + + | 12/06/ | Office | Nephrology | Farrukh Acuna MD | | | 2019 | Visit | | [address] [place] | | | | | | [address] [facility] [place] | | | | | | [address] | | | | | | | [...]
--- OUTSIDE RECORDS SUMMARY | ~2019-10-10 | XMS | Encounter Summary ---
Demographics + + + | Address | [address] | | | [place] [address] | + + + | Home Phone [...] Team Providers + +------+ + | Care Shelf Stocker Name | Role | Phone | + +------+ + | Rahul Silva MD | PCP | | + +------+ + Encounter Details +--------+ + + + + | Date | Type | Department | Care Team | Description | +--------+ + + + + | 02/16/ | Abstract | [facility] [place] | Jose L Magana, | PAOLO (obstructive | | 2013 | | PULMONARY [address] | MD [address] | sleep apnea) | | | | [place] Tonya Cast[place]eda, | [place] | (Primary Dx); COPD | | | | [place] [phone] | [address] | (chronic obstructive | | | | [phone] | | pulmonary disease) | | | | | | (HCC) [...] [place] | | | | | | [address] | | | | | | | | +--------+---------+ + + + | 12/06/ | Office | Nephrology | Farrukh Acuna MD | | | 2019 | Visit | | [address] [place] | | | | | | [address] [place] | | | | | | [address] | | | | | | | [...]
--- OUTSIDE RECORDS SUMMARY | ~2019-10-10 | XMS | Encounter Summary ---
Demographics + + + | Address | [address] | | | [place] [address] | + + + | Home Phone | | + + + | Preferred Language | Unknown | + + + | Marital Status | | + + + | Spiritism Affiliation | 1077 | + + + | Race | Unknown | + + + | Ethnic Group | Unknown | + + + Author + + + | Author | [employer] (Historical as of | | | 07-17-19) | + + + | Organization | [facility] [employer] (Historical as of | | | 07-17-19) [...] Team Providers + +------+ + | Care Creative Coordinator Name | Role | Phone | [...] | | [address] | [address]UD [address] | | | | | [address] | | | | | | [place] [address] | | | | | | [phone] | | | +--------+ + + + [...]
--- OUTSIDE RECORDS SUMMARY | ~2019-10-10 | XMS | Encounter Summary ---
Demographics + + + | Address | [address] | | | [place] [address] | + + + | Home Phone [...] Providers + +------+ + | Care Plate Drying Machine Tender Name | Role | Phone | [...] [address] | | | | | [place], [place] | [place], [place] | | | | | [address] | [address] | | | | | [phone] | [phone] | | | | | | | [...] [place] | | | | | | [address] | | | | | | | | +--------+---------+ + + + | 12/06/ | Office | Nephrology | Farrukh Acuna MD | | | 2019 | Visit | | [address] [facility] | | | | | | [address] [place] | | | | | | [address] | | | | | | | [...]
--- OUTSIDE RECORDS SUMMARY | ~2019-10-10 | XMS | Encounter Summary ---
Demographics + + + | Address | [address] | | | [place] [address] | + + + | Home Phone [...] Team Providers + +------+ + | Care Campus Coordinator Name | Role | Phone | [...] [address] | | | | | [place], [place] | [place], [place] | | | | | [address] | [address] | | | | | [phone] | [phone] | | | | | | | [...] [place] | | | | | | [address] | | | | | | | | +--------+---------+ + + + | 12/06/ | Office | Nephrology | Farrukh Acuna MD | | | 2019 | Visit | | [address] [facility] | | | | | | [address] [place] | | | | | | [address] | | | | | | | [...] in this encounter Results External Lab: [facility] (11/10/2016 4:27 AM PST) + + + [...]
--- OUTSIDE RECORDS SUMMARY | ~2019-10-10 | XMS | Encounter Summary ---
Demographics + + + | Address | [address] | | | [place] [address] | + + + | Home Phone [...] [place] | | | | | [address] | | + + + + + Care Team Providers + +------+ + | Care Rocket Motor Mechanic Name | Role | Phone | + +------+ + PCP | Unavailable | + +------+ + Encounter Details +--------+ + + + + | Date | Type | Department | Care Team | Description | +--------+ + + + + | 02/26/ | Results | | Other, Faculty | | | 1993 | Only | | [phone] | | +--------+ + + + + [...] | | + +---------+ + + | [facility] DEPARTMENT OF | | | | | RADIOLOGY | | | | + +---------+ + + documented in this encounter Visit Diagnoses Not on filedocumented in this encounter"
--- OUTSIDE RECORDS SUMMARY | ~2019-10-10 | XMS | Encounter Summary ---
Demographics + + + | Address | [address] | | | [place] [address] | + + + | Home Phone [...] [place] | | | | | [address] | | + + + + + Care Team Providers + +------+ + | Care Hl7 Developer Name | Role | Phone | [...] Rd | | | | | | [place] | | | | | | [address] | | | +--------+ + + + [...] as of this encounter Discharge Summaries Interface, Section 8 Property Manager In - 04/01/2007 5:08 AM PDT [address] [address] [facility] MEDICAL SUMMARY OF HOSPITALIZATION Med [...] Clinic NK:freddie A cc: RUBIA KNAPP MD [address] [facility] [address] documented in this encounter Plan of Treatment Not on filedocumented as of this encounter Visit Diagnoses Not on filedocumented in this encounter"
--- OUTSIDE RECORDS SUMMARY | ~2019-10-10 | XMS | Encounter Summary ---
Demographics + + + | Address | [address] | | | [place] [address] | + + + | Home Phone | | + + + | Preferred Language | Unknown | + + + | Marital Status | Single | + + + | Lutheran Affiliation | PRO | + + + [...] [place] | | | | | [address] | | + + + + + Care Team Providers + +------+ + | Care International Recruiter Name | Role | Phone | + +------+ + PCP | Unavailable | + +------+ + Encounter Details +--------+ + + + + | Date | Type | Department | Care Team | Description | +--------+ + + + + | 04/08/ | Discharge | Allergy Clinic at | Summary, Discharge | D/C Summary ODDS | | 1997 | Summary-Tra | [place] [address] | | | | | nscribed | [address] | | | | | | Mailcode: [address] | | | | | | [place] | | | | | | [place], | | | | | | [place] [address] | | | | | | [phone] | | | +--------+ + + + [...] as of this encounter Discharge Summaries Interface, Inspector Of Weights And Measures In - 12/22/2006 3:12 AM PST [address] [address] [facility] MEDICAL SUMMARY OF HOSPITALIZATION Med Rec No.: [id number] Admission Date: 04/06/98 Name: Kavon Andujar Discharge Date: 04/08/98 STAFF PHYSICIAN: Galo Arora M.D. Director Of Radiology, Division of Plastic & Reconstructive Surgery PRINCIPAL [...] M.D. Resident, Plastic Surgery Galo Arora M.D. Director Of Radiology, Division of Plastic & Reconstructive Surgery QIANA/charo P cc: GRIFFIN ASHER MD [address] [facility] [place] [address] documented in this encounter Plan of Treatment Not on filedocumented as of this encounter Visit Diagnoses Not on filedocumented in this encounter"
--- OUTSIDE RECORDS SUMMARY | ~2019-10-10 | XMS | Encounter Summary ---
Demographics + + + | Address | [address] | | | [place] [address] | + + + | Home Phone [...] Team Providers + +------+ + | Care Flying Squad Salesperson Name | Role | Phone | [...] | | | | | | ([facility]) | | | | | [...] + + | 09/10/ | Hospital | [facility] | Brian Orosco MD | CKD (chronic kidney | | 2019 | Encounter | [facility] | [address] | disease) stage 5, | | | | OPERATING ROOM [address] | [place], [place] | GFR less than 15 | | | | [address] | [address] | ml/min ([facility]) | | | | [place], [place] | [phone] | | | | | [address] | | | | | | [phone] | | | +--------+ + + + [...] dialysis shunt, please contact your ysician at [phone]. Discharge instructions for Diagnostic Imaging sedation patients [...] . For any severe symptoms, please call [phone] or report to your nearest Emergency Department. Acetaminophen; Hydrocodone tablets or capsules Brand Names: Anexsia, Lorcet, Lorcet HD, Lorcet Plus, Lortab, [place], Verdrocet, Vicodin, Vi codin ES, Vicodin HP, [...] information carefully each time. Talk to your event decorator regarding the use of this medicine in children. Special care may be needed. What side effects may I notice from receiving this medicine? Side effects that you should report to your doctor or health long term acute care registered nurse as soon as p ossible: allergic reactions [...] attention (report to your doctor or health long term acute care registered nurse if they continue or are bothersome): constipation [...] official disposal site. Contact the [facility] at [phone] or your [facility] government to find a site. If you [...] this medicine? Tell your doctor or health long term acute care registered nurse if your pain does not go away, [...] cuts, scrapes, or blows. Date Last Reviewed: 12/01/201619996728-45[address] [employer] [place], [place] [address]. All righ ts reserved. This information is [...] | | | | | | ([facility]), Secondary | | | | | | | hyperparathyroidism | | | | | | | ([facility]) | | | | | [...] and bl ood clots prevention. Prescription for [place] given and side effects were explained. Patient states that he also takes oxycodone at home; patient and his family were educated about taki ng oxycodone or [place] only and not both. OTC Tylenol intake [...] [place] | | | | | | [address] | | | | | | | | +--------+---------+ + + + | 12/06/ | Office | Nephrology | Farrukh Acuna MD | | | 2019 | Visit | | [address] [place] | | | | | | [address] [place] | | | | | | [address] | | | | | | | [...] | | POC | performed at [facility];[address] | | LABORATORY | | | | [address];[place] | | | | | | [address] | | | | + + + + + + + + | Specimen | + + | | + + + + + + + | Performing | Address | City/State/Zipcode | Phone Number | | Organization | | | | + + + + + | [facility] | [address] [facility] | [place] [address] | [phone] | + + + + + POC [...] | | POC | performed at [facility];[address] | | LABORATORY | | | | [address];[place] | | | | | | [address] | | | | + + + + + + + + | Specimen | + + | | + + + + + + + | Performing | Address | City/State/Zipcode | Phone Number | | Organization | | | | + + + + + | [facility] | [address] | [place] [address] | [phone] | + + + + + documented in this encounter Visit Diagnoses + + | Diagnosis | + + | CKD (chronic kidney disease) stage 5, GFR less than 15 ml/min ([facility]) Chronic kidney | | disease, Stage V | + + documented in this encounter Admitting Diagnoses + + | Diagnosis | + + | CKD (chronic kidney disease) stage 5, GFR less than 15 ml/min ([facility]) Chronic kidney | | disease, [...] One week or | | | longer, kfxtjj-vtw-tdghc use of | | | at least [...]
--- OUTSIDE RECORDS SUMMARY | ~2019-10-10 | XMS | Encounter Summary ---
Demographics + + + | Address | [address] | | | [place] [address] | + + + | Home Phone [...] Team Providers + +------+ + | Care Lifter Name | Role | Phone | + +------+ + | Rahul Silva MD | PCP | | + +------+ + Encounter Details +--------+ + + + + | Date | Type | Department | Care Team | Description | +--------+ + + + + | 02/15/ | Orders Only | [facility] | Conversion | | | 2019 | | NEPHROLOGY [place] | Transaction, | | | | | [address] | Provider Unknown | | | | | [address] [place] | | | | | | [address] | (Fax) | | | | | [phone] | | | +--------+ + + + [...] [place] | | | | | | [address] | | | | | | | | +--------+---------+ + + + | 12/06/ | Office | Nephrology | Farrukh Acuna MD | | | 2019 | Visit | | [address] [place] | | | | | | [address] [place] | | | | | | [address] | | | | | | | [...] + + + | RED CELL | 3.87 (A) | 4.3 - 5.7 10 | EXTERNAL | | | COUNT | | | LAB | | + + + + + + | Hgb | 11.1 (A) | 13.5 - 18.0 [...]
--- OUTSIDE RECORDS SUMMARY | ~2019-10-10 | XMS | Encounter Summary ---
Demographics + + + | Address | [address] | | | [place] [address] | + + + | Home Phone [...] Providers + +------+ + | Care Dough Mixer Name | Role | Phone [...] [address] | | | | | [place], [place] | [place], [place] | | | | | [address] | [address] | | | | | [phone] | [phone] | | | | | | | [...] [place] | | | | | | [address] | | | | | | | | +--------+---------+ + + + | 12/06/ | Office | Nephrology | Farrukh Acuna MD | | | 2019 | Visit | | [address] [facility] | | | | | | [address] [place] | | | | | | [address] | | | | | | | [...]
--- OUTSIDE RECORDS SUMMARY | ~2019-10-10 | XMS | Encounter Summary ---
Demographics + + + | Address | [address] | | | [place] [address] | + + + | Home Phone [...] Author + + + | Author | [facility] | + + + | Organization | [facility] | + + + | Address | Unknown | + + + | Phone | Unavailable | + + + Support + + + + + | Name | Relationship | Address | Phone | + + + + + | Darci Zavala | VALERIE | [place] | | | | | [address] | | + + + + + Care Team Providers + +------+ + | Care Umbrella Repairer Name | Role | Phone | + +------+ + PCP | Unavailable | + +------+ + Encounter Details +--------+ + + + + | Date | Type | Department | Care Team | Description | +--------+ + + + + | 09/09/ | Transcribed | Allergy Clinic at | [place], Other | Transcribed | | 1995 | | [facility] [address] | | | | | | [address] | | | | | | Mailcode: [address] | | | | | | [address] [place] | | | | | | [place], | | | | | | [place] [address] | | | | | | [phone] | | | +--------+ + + + [...] as of this encounter Progress Notes Interface, Mine Car Dispatcher In - 02/14/2007 3:12 AM PDT [address] [address] or September 09, 1996 Nestor VALLES MD [address] [place] [id number] RE: PORFIRIO ZAVALA MR#: [id number] Valles: Your patient, Porfirio Zavala, was seen for follow up today in the Neurosurgery Clinic at [facility]. 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 Following our initial evaluation, we recommended [...] Fellow, Neurosurgery Alina Moise M.D. Professor and Sales Representative Wire Rope, Division of Neurosurgery HECTOR/hiro documented in this encounter Plan of Treatment Not on filedocumented as of this encounter Visit Diagnoses Not on filedocumented in this encounter"
--- OUTSIDE RECORDS SUMMARY | ~2019-10-10 | XMS | Encounter Summary ---
Demographics + + + | Address | [address] | | | [place] [address] | + + + | Home Phone [...] Team Providers + +------+ + | Care Mash Tub Cooker Operator Name | Role | Phone | + +------+ + | Rahul Silva MD | PCP | | + +------+ + Encounter Details +--------+ + + + + | Date | Type | Department | Care Team | Description | +--------+ + + + + | 07/20/ | Orders Only | [facility] | Farrukh Acuna MD | Anemia of chronic | | 2019 | | NEPHROLOGY [place] | [address] [place] | renal failure, stage | | | | [address] [place] | [address] [place], [place] | 4 (severe) (HCC) | | | | [address] [place], [place] | [address] | (Primary Dx); Stage | | | | [address] | | 4 chronic kidney | | | | [phone] | | disease (HCC); | | | [...] [place] | | | | | | [address] | | | | | | | | +--------+---------+ + + + | 12/06/ | Office | Nephrology | Farrukh Acuna MD | | | 2019 | Visit | | [address] [facility] [place] | | | | | | [address] [place] | | | | | | [address] | | | | | | | [...]
--- OUTSIDE RECORDS SUMMARY | ~2019-10-10 | XMS | Encounter Summary ---
Demographics + + + | Address | [address] | | | [place] [address] | + + + | Home Phone [...] Team Providers + +------+ + | Care Fraud Prevention Analyst Name | Role | Phone | + +------+ + | Rahul Silva MD | PCP | | + +------+ + Encounter Details +--------+ + + + + | Date | Type | Department | Care Team | Description | +--------+ + + + + | 01/26/ | Orders Only | [facility] | Conversion | | | 2014 | | NEPRHOLOGY [place] | Transaction, | | | | | [address] | Provider Unknown | | | | | [address] [place], [place] | | | | | | [address] | (Fax) | | | | | [phone] | | | +--------+ + + + [...] [place] | | | | | | [address] | | | | | | | | +--------+---------+ + + + | 12/06/ | Office | Nephrology | Farrukh Acuna MD | | | 2019 | Visit | | [address] [facility] [place] | | | | | | [address] | | | | | | [address] | | | | | | | [...] + + + | RED CELL | 3.68 (A) | 3.8 - 5.7 10 | EXTERNAL | | | COUNT | | | LAB | | + + + + + + | Hgb | 11.4 (A) | 12.0 - 18.0 [...]
--- OUTSIDE RECORDS SUMMARY | ~2019-10-10 | XMS | Encounter Summary ---
Demographics + + + | Address | [address] | | | [place] [address] | + + + | Home Phone [...] Providers + +------+ + | Care Senior Management Consultant Name | Role | Phone | + +------+ + | Rahul Silva MD | PCP | | + +------+ + Encounter Details +--------+ + + + + | Date | Type | Department | Care Team | Description | +--------+ + + + + | 03/01/ | Orders Only | [facility] | Conversion | | | 2019 | | NEPHROLOGY [place] | Transaction, | | | | | [address] | Provider Unknown | | | | | [address] | | | | | | [address] | (Fax) | | | | | [phone] | | | +--------+ + + + [...] [place] | | | | | | [address] | | | | | | | | +--------+---------+ + + + | 12/06/ | Office | Nephrology | Farrukh Acuna MD | | | 2019 | Visit | | [address] | | | | | | [address] | | | | | | [address] | | | | | | | [...] - 1.030 | EXTERNAL | | | [place] | | | LAB | | + [...] | | | LAB | | | [facility] | | | | | + [...]
--- OUTSIDE RECORDS SUMMARY | ~2019-10-10 | XMS | Encounter Summary ---
Demographics + + + | Address | [address] | | | [place] [address] | + + + | Home Phone [...] + + + | Author | [facility] | + + + | Organization | [facility] | + + + | Address | Unknown | + + + | Phone | Unavailable | + + + Support + + + + + | Name | Relationship | Address | Phone | + + + + + | Darci Zavala | [place] | [place] | | | | | [address] | | + + + + + Care Team Providers + +------+ + | Care Ground Support Equipment Mechanic Name | Role | Phone | + +------+ + PCP | Unavailable | + +------+ + Encounter Details +--------+ + + + + | Date | Type | Department | Care Team | Description | +--------+ + + + + | 01/31/ | Transcribed | Allergy Clinic at | [place], Other | Transcribed | | 1997 | | [facility] [address] | | | | | | [address] | | | | | | Mailcode: [id number] | | | | | | [address] | | | | | | [place], | | | | | | [place] [address] | | | | | | [phone] | | | +--------+ + + + [...] as of this encounter Progress Notes Interface, Copy Holder In - 12/28/2006 5:10 AM PST [address] [address] or January 31, 1998 GRIFFIN SMILEY MD [address] [facility] [address] [place] [address] RE:PORFIRIO ZAVALA MR#:[id number] Smiley: As [...] to hear in our conversation that the [place] [employer] does not cover Ultram in [...] in the future. Sincerely, Nelson Melara M.D. Coal Chemist, Anesthesiology [facility] MANDY/geovanni documented in this encounter Plan of Treatment Not on filedocumented as of this encounter Visit Diagnoses Not on filedocumented in this encounter"
--- OUTSIDE RECORDS SUMMARY | ~2019-10-10 | XMS | Encounter Summary ---
Demographics + + + | Address | [address] | | | [place] [address] | + + + | Home Phone [...] + +------+ + | Care Project Development Engineer Name | Role | Phone [...] + + | 09/24/ | Telephone | [facility] | Farrukh Acuna MD | Lab Results | | 2019 | | NEPHROLOGY [place] | [address] [place] | | | | | [address] [place] | [address] [place], [place] | | | | | [address] [place], [place] | [address] | | | | | [address] | | | | | | [phone] | | | +--------+ + + + [...] [place] | | | | | | [address] | | | | | | | | +--------+---------+ + + + | 12/06/ | Office | Nephrology | Farrukh Acuna MD | | | 2020 | Visit | | [address] [facility] | | | | | | [address] | | | | | | [address] | | | | | | | | +--------+---------+ + + + documented as of this encounter Visit Diagnoses Not on filedocumented in this encounter"
--- OUTSIDE RECORDS SUMMARY | ~2019-10-10 | XMS | Encounter Summary ---
Demographics + + + | Address | [address] | | | [place] [address] | + + + | Home Phone [...] Team Providers + +------+ + | Care Sizer Machine Name | Role | Phone | + +------+ + | Rahul Silva MD | PCP | | + +------+ + Encounter Details +--------+ + + + + | Date | Type | Department | Care Team | Description | +--------+ + + + + | 02/24/ | Orders Only | [facility] | Conversion | | | 2016 | | NEPHROLOGY [place] | Transaction, | | | | | [address] | Provider Unknown | | | | | [address] | | | | | | [address] | (Fax) | | | | | [phone] | | | +--------+ + + + [...] [place] | | | | | | [address] | | | | | | | | +--------+---------+ + + + | 12/06/ | Office | Nephrology | Farrukh Acuna MD | | | 2019 | Visit | | [address] | | | | | | [address] [place] [address] | | | | | | [address] | | | | | | | [...] - 1.030 | EXTERNAL | | | [place] | | | LAB | | + [...] | | | LAB | | | [facility] | | | | | + + [...]
--- OUTSIDE RECORDS SUMMARY | ~2019-10-10 | XMS | Encounter Summary ---
Demographics + + + | Address | [address] | | | [place] [address] | + + + | Home Phone [...] Team Providers + +------+ + | Care Oracle R12 Developer Name | Role | Phone | + +------+ + | Rahul Silva MD | PCP | | + +------+ + Encounter Details +--------+ + + + + | Date | Type | Department | Care Team | Description | +--------+ + + + + | 08/13/ | Orders Only | [facility] | Farrukh Acuna MD | | | 2017 | | NEPHROLOGY [place] | [address] [place] | | | | | [address] [place] | [address] [place], [place] | | | | | [address] [place], [place] | [address] | | | | | [address] | | | | | | [phone] | | | +--------+ + + + [...] [place] | | | | | | [address] | | | | | | | | +--------+---------+ + + + | 12/06/ | Office | Nephrology | Farrukh Acuna MD | | | 2020 | Visit | | [address] [place] | | | | | | [address] [address] | | | | | | [address] | | | | | | | [...] + + + | RED CELL | 3.45 (A) | 4.3 - 5.7 10 | EXTERNAL | | | COUNT | | | LAB | | + + + + + + | Hgb | 9.6 (A) | 13.5 - 18.0 [...] | | | LAB | | | [place] | | | | | + + [...]
--- OUTSIDE RECORDS SUMMARY | ~2019-10-10 | XMS | Encounter Summary ---
Demographics + + + | Address | [address] | | | [place] [address] | + + + | Home Phone [...] Team Providers + +------+ + | Care Substation Maintenance Technician Name | Role | Phone | + +------+ + | Rahul Silva MD | PCP | | + +------+ + Encounter Details +--------+ + + + + | Date | Type | Department | Care Team | Description | +--------+ + + + + | 07/17/ | Orders Only | [facility] | Conversion | | | 2016 | | NEPHROLOGY [place] | Transaction, | | | | | [address] | Provider Unknown | | | | | [address] | | | | | | [address] | (Fax) | | | | | [phone] | | | +--------+ + + + [...] [place] | | | | | | [address] | | | | | | | | +--------+---------+ + + + | 12/06/ | Office | Nephrology | Farrukh Acuna MD | | | 2019 | Visit | | [address] | | | | | | [address] [address] | | | | | | [address] | | | | | | | [...]
--- OUTSIDE RECORDS SUMMARY | ~2019-10-10 | XMS | Encounter Summary ---
Demographics + + + | Address | [address] | | | [place] [address] | + + + | Home Phone [...] Providers + +------+ + | Care Receiving Tank Operator Name | Role | Phone | + +------+ + | Rahul Silva MD | PCP | | + +------+ + Encounter Details +--------+ + + + + | Date | Type | Department | Care Team | Description | +--------+ + + + + | 08/31/ | Orders Only | [facility] | Farrukh Acuna MD | | | 2013 | | NEPHROLOGY [place] | [address] [place] | | | | | [address] [place] | [address] [place], [place] | | | | | [address] [place], [place] | [address] | | | | | [address] | | | | | | [phone] | | | +--------+ + + + [...] [place] | | | | | | [address] | | | | | | | | +--------+---------+ + + + | 12/06/ | Office | Nephrology | Farrukh Acuna MD | | | 2019 | Visit | | [address] | | | | | | [address] [address] | | | | | | [address] | | | | | | | [...]
--- OUTSIDE RECORDS SUMMARY | ~2019-10-10 | XMS | Encounter Summary ---
Demographics + + + | Address | [address] | | | [place] [address] | + + + | Home Phone [...] Team Providers + +------+ + | Care Apprentice Cosmetologist Name | Role | Phone | + +------+ + | Rahul Silva MD | PCP | | + +------+ + Encounter Details +--------+ + + + + | Date | Type | Department | Care Team | Description | +--------+ + + + + | 12/16/ | Orders Only | [facility] | Conversion | | | 2016 | | NEPHROLOGY [place] | Transaction, | | | | | [address] | Provider Unknown | | | | | [address] | | | | | | [address] | (Fax) | | | | | [phone] | | | +--------+ + + + [...] [place] | | | | | | [address] | | | | | | | | +--------+---------+ + + + | 12/06/ | Office | Nephrology | Farrukh Acuna MD | | | 2019 | Visit | | [address] | | | | | | [address] [address] | | | | | | [address] | | | | | | | [...]
--- OUTSIDE RECORDS SUMMARY | ~2019-10-10 | XMS | Encounter Summary ---
Demographics + + + | Address | [address] | | | [place] [address] | + + + | Home Phone | | + + + | Preferred Language | Unknown | + + + | Marital Status | Single | + + + | Baptism Affiliation | PRO | + + + [...] [place] | | | | | [address] | | + + + + + Care Team Providers + +------+ + | Care Customer Advisor Specialist Name | Role | Phone | [...] [id number] | | | | | | [place], [place] | | | | | | [address] | | | | | | [phone] | | | +--------+ + + + [...] | + + + + + | [facility] | [address] | [place] [address] | | | PATHOLOGY | [address] [...] | + + + + + | [facility] | [address] | [place] [address] | | | PATHOLOGY | [address] [...] | + + + + + | [facility] | [address] | [place] [address] | | | PATHOLOGY | [address] [...] | | | | of bynum to jackie, | | | | | | softtissue [...] Dempsey, | | | | | | MAugustinaCase staffed by: | | | | | | Mukesh Dee | | | | | | Idrist:04/10/98:cc | | | | | | My [...] | + + + + + | [facility] | [address] | [place] [address] | | | PATHOLOGY | [address] | | | + + + + + documented in this encounter Visit Diagnoses Not on filedocumented in this encounter
--- OUTSIDE RECORDS SUMMARY | ~2019-10-10 | XMS | Encounter Summary ---
Demographics + + + | Address | [address] | | | [place] [address] | + + + | Home Phone [...] Providers + +------+ + | Care Deputy Chief Sheriff Name | Role | Phone | [...] + + | 08/26/ | Office | [facility] | Trisha Conner DNP | CKD (chronic kidney | | 2019 | Visit | VASCULAR SURGERY | [address] | disease) stage 5, | | | | [address] [place] | [place], [place] | GFR less than 15 | | | | [place], [place] | [address] | ml/min (HCC) | | | | [address] | | (Primary Dx) | | | | [phone] | Brian Orosco MD | | | | | | [address] | | | | | | [place], [place] | | | | | | [address] | | | | | | [phone] | | | | | | | [...] CV: No peripheral edema, rate regular SKIN: Coco, warm, dry without rash/lesion MS: ROM not [...] Note: Documentation assistance provided by Justyn Yanes ([email or web address]). Information dex rded by the scribe has been reviewed and validated by me. I agree with its contents. Signed by: Eden Painter 08/26/19, 10:49 Brian Orosco MD documented in this encounter Plan of Treatment +--------+---------+ + + + | Date | Type | Specialty | Care Team | Description | +--------+---------+ + + + | 10/20/ | Office | Vascular Surgery | Trisha Conner DNP | | | 2018 | Visit | | [address] | | | | | | [place], [place] | | | | | | [address] | | | | | | | | +--------+---------+ + + + | 12/06/ | Office | Nephrology | Farrukh Acuna MD | | | 2019 | Visit | | [address] [facility] [place] | | | | | | [address] [place], [place] | | | | | | [address] | | | | | | | [...] | | | | than 15 ml/min ([facility]) | | + +------+--------+ + + | CBC no Differential | Lab | Routin | CKD (chronic | 1 Occurrences | | | | e | kidney disease) | starting 08/26/2019 | | | | | stage 5, GFR less | until 08/26/2020 | | | | | than 15 ml/min ([facility]) | | + +------+--------+ + + documented as of this encounter Visit Diagnoses + + | Diagnosis | + + | CKD (chronic kidney disease) stage 5, GFR less than 15 ml/min ([facility]) - Primary Chronic | | kidney disease, Stage V | + + documented in this encounter"
--- OUTSIDE RECORDS SUMMARY | ~2019-10-10 | XMS | Encounter Summary ---
Demographics + + + | Address | [address] | | | [place] [address] | + + + | Home Phone [...] [place] | | | | | [address] | | + + + + + Care Team Providers + +------+ + | Care Library Aide Name | Role | Phone | [...] Clinic | | | | | | [facility], [address] | | | | | | [place], [place] | | | | | | [address] | | | | | | [phone] | | | +--------+ + + + [...] as of this encounter Progress Notes Interface, Roll Finisher In - 01/22/2007 3:04 AM PST CLINIC DATE: 06/07/97 NEUROLOGY CLINIC HISTORY OF PRESENT ILLNESS: Mr. Andujar is a 56 year-old male who is being evaluated in the Clinic for problems with balance and tremulousness of both upper extremities. He has been referred to this Clinic by Dr. Valles from [place], [place], and has also previously undergone extensive evaluations in the Neurosurgical Clinic and at Vascular Surgery at [facility]. His most recent hospitalization to [facility] was December 28, 1996, when [...] evaluation in the Pain Management Clinic at [facility] and previous trials of Neurontin and mexiletine hydrochloride apparently appears to have been unsuccessful. Shortly following his December hospitalization at [facility], Mr. Andujar apparently became comatose in January from an accidental overdose of Darvon for which he was admitted to [facility] in [place], [place]. The details pertaining to this hospitalization are currently not available but as per Mr. Andujar, he was in a coma for a six day period and upon recovery noted tremulousness of both upper extremities, worse on his left than on his right. Prior to his hospitalization at [facility] and following his discharge from [facility], he apparently was ambulating with crutches since the stump pain precluded the use of his left lower extremity prosthesis. Since his discharge from [facility], however, he has been experiencing increasing problems with balance and apparently has fallen on several occasions. The head CT-scan that was done at [facility], dated February 07, 1997, reveals a low attenuation area in the left anterior basal ganglia felt to represent a small lacunar infarct, with no other significant abnormality. Mr. Andujar states that during the course of his hospitalization at [facility] he apparently fell on three occasions sustaining occipital head trauma but did not undergo subsequent brain imaging studies. His stay at [facility] lasted two weeks. By his [...] Mr. 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 SOCIAL HISTORY: Mr. nAdujar currently lives in a Foster Home in [place], [place]. 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 He currently smokes one-half axyk-vac-wfh since age 23. Denies current alcohol use [...] is not in any acute distress. Mr. Andujra is an excellent historian and does not [...] in turn led to his hospitalization at [facility] in January 1997 for coma [...] procedures for pain relief. Michelle Landon M.D. City Controller, Neurology GN:fermin C: 06/28/97 cc: RUBIA VALLES MD [address] [facility] [address] Alina Moise M.D. Professor and Tire Trucker, Division of Neurosurgery Robert Carlson M.D. Professor, Vascular Surgery documented in this encounter Plan of Treatment Not on filedocumented as of this encounter Visit Diagnoses Not on filedocumented in this encounter"
--- OUTSIDE RECORDS SUMMARY | ~2019-10-10 | XMS | Encounter Summary ---
Demographics + + + | Address | [address] | | | [place] [address] | + + + | Home Phone [...] Team Providers + +------+ + | Care Postal Transportation Clerk Name | Role | Phone | [...] [address] | | | | | [place], [place] | [place], [place] | | | | | [address] | [address] | | | | | [phone] | [phone] | | | | | | | [...] [place] | | | | | | [address] | | | | | | | | +--------+---------+ + + + | 12/06/ | Office | Nephrology | Farrukh Acuna MD | | | 2019 | Visit | | [address] [facility] | | | | | | [address] | | | | | | [address] | | | | | | | [...]
--- OUTSIDE RECORDS SUMMARY | ~2019-10-10 | XMS | Encounter Summary ---
Demographics + + + | Address | [address] | | | [place] [address] | + + + | Home Phone | | + + + | Preferred Language | Unknown | + + + | Marital Status | Single | + + + | Sikhism Affiliation | PRO | + + + | Race | White | + + + | Ethnic Group | Not or | + + + Author + + + | Author | [facility] | + + + | Organization | [facility] | + + + | Address | Unknown | + + + | Phone | Unavailable | + + + Support + + + + + | Name | Relationship | Address | Phone | + + + + + | Darci Andujar | [address] | [place] | | | | | [address] | | + + + + + Care Team Providers + +------+ + | Care Yard Stocker Name | Role | Phone | [...] | | | | | | [place], | | | | | | [place] [address] | | | | | | [phone] | | | +--------+ + + + [...] as of this encounter Discharge Summaries Interface, Cut Roll Machine Offbearer In - 02/05/2007 1:03 AM PST [address] [address] [facility] MEDICAL SUMMARY OF HOSPITALIZATION Med Rec No.: [id number] Admission Date: 12/28/96 Name: Kavon Andujar Discharge Date: 01/03/97 STAFF PHYSICIAN: Robert Carlson M.D. Professor, Vascular Surgery PRINCIPAL FINAL DIAGNOSIS: Osteophyte of left sktol-tou-yyrm amputation stump. ADDITIONAL DIAGNOSES: Phantom pain. PRINCIPAL PROCEDURE: Revision of left ltyqm-iav-vtaf amputation stump and excision of left stump osteophyte. 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 Since then he has had pain in the stump. On a computed tomography (CT) scan, it was noted that he had a large bone spur and a cyst in his stump site. HOSPITAL COURSE: The patient was admitted on December 28 and underwent revision of his left dveqm-vwz-wduw amputation stump with excision of his left [...] Normal. 3. DIET: Normal. Nick Noriega M.D. Pile Operator, General Surgery Robert Carlson M.D. Professor, Vascular Surgery DOMINIC/jc A cc: RUBIA KNAPP MD [address] [facility] [address] documented in this encounter Plan of Treatment Not on filedocumented as of this encounter Visit Diagnoses Not on filedocumented in this encounter"
--- OUTSIDE RECORDS SUMMARY | ~2019-10-10 | XMS | Encounter Summary ---
Demographics + + + | Address | [address] | | | [place] [address] | + + + | Home Phone [...] Team Providers + +------+ + | Care Ops Manager Name | Role | Phone | + +------+ + | Rahul Silva MD | PCP | | + +------+ + Encounter Details +--------+ + + + + | Date | Type | Department | Care Team | Description | +--------+ + + + + | 09/18/ | Orders Only | [facility] | Conversion | | | 2018 | | NEPHROLOGY [place] | Transaction, | | | | | [address] | Provider Unknown | | | | | [address] | | | | | | [address] | (Fax) | | | | | [phone] | | | +--------+ + + + [...] [place] | | | | | | [address] | | | | | | | | +--------+---------+ + + + | 12/06/ | Office | Nephrology | Farrukh Acuna MD | | | 2019 | Visit | | [address] | | | | | | [address] [place] | | | | | | [address] | | | | | | | [...]
--- OUTSIDE RECORDS SUMMARY | ~2019-10-10 | XMS | Encounter Summary ---
Demographics + + + | Address | [address] | | | [place] [address] | + + + | Home Phone [...] Team Providers + +------+ + | Care Exotic Dancer Name | Role | Phone | + [...] [address] | | | | | [place], [place] | [place], [place] | | | | | [address] | [address] | | | | | [phone] | [phone] | | | | | | | [...] [place] | | | | | | [address] | | | | | | | | +--------+---------+ + + + | 12/06/ | Office | Nephrology | Farrukh Acuna MD | | | 2019 | Visit | | [address] [facility] [place] | | | | | | [address] [place] [address] | | | | | | [address] | | | | | | | [...] Provider: TAE MD, LEONORA, , , , EH, | EXTERNAL LAB [...]
--- OUTSIDE RECORDS SUMMARY | ~2019-10-10 | XMS | Encounter Summary ---
Demographics + + + | Address | [address] | | | [place] [address] | + + + | Home Phone [...] Providers + +------+ + | Care Director Presales Name | Role | Phone | + +------+ + | Rahul Silva MD | PCP | | + +------+ + Encounter Details +--------+ + + + + | Date | Type | Department | Care Team | Description | +--------+ + + + + | 05/27/ | Orders Only | [facility] | Conversion | | | 2019 | | NEPHROLOGY [place] | Transaction, | | | | | [address] | Provider Unknown | | | | | [address] | | | | | | [address] | (Fax) | | | | | [phone] | | | +--------+ + + + [...] [place] | | | | | | [address] | | | | | | | | +--------+---------+ + + + | 12/06/ | Office | Nephrology | Farrukh Acuna MD | | | 2019 | Visit | | [address] | | | | | | [address] [place] | | | | | | [address] | | | | | | | [...]
--- OUTSIDE RECORDS SUMMARY | ~2019-10-10 | XMS | Encounter Summary ---
Demographics + + + | Address | [address] | | | [place] [address] | + + + | Home Phone [...] Providers + +------+ + | Care Environmental Project Manager Name | Role | Phone | + +------+ + | Rahul Silva MD | PCP | | + +------+ + Encounter Details +--------+ + + + + | Date | Type | Department | Care Team | Description | +--------+ + + + + | 11/10/ | Orders Only | [facility] | Farrukh Acuna MD | | | 2017 | | NEPHROLOGY [place] | [address] [place] | | | | | [address] [place] | [address] [place], [place] | | | | | [address] [place], [place] | [address] | | | | | [address] | | | | | | [phone] | | | +--------+ + + + [...] [place] | | | | | | [address] | | | | | | | | +--------+---------+ + + + | 12/06/ | Office | Nephrology | Farrukh Acuna MD | | | 2020 | Visit | | [address] | | | | | | [address] [place] [address] | | | | | | [address] | | | | | | | [...] | | | LAB | | | [facility] | | | | | + + [...]
--- OUTSIDE RECORDS SUMMARY | ~2019-10-10 | XMS | Encounter Summary ---
Demographics + + + | Address | [address] | | | [place] [address] | + + + | Home Phone [...] Team Providers + +------+ + | Care Associate Professor Of Criminal Justice Name | Role | Phone | + [...] [address] | | | | | [place], [place] | [place], [place] | | | | | [address] | [address] | | | | | [phone] | [phone] | | | | | | | [...] [place] | | | | | | [address] | | | | | | | | +--------+---------+ + + + | 12/06/ | Office | Nephrology | Farrukh Acuna MD | | | 2019 | Visit | | [address] [facility] | | | | | | [address] [address] | | | | | | [address] | | | | | | | [...]
--- OUTSIDE RECORDS SUMMARY | ~2019-10-10 | XMS | Encounter Summary ---
Demographics + + + | Address | [address] | | | [place] [address] | + + + | Home Phone [...] Team Providers + +------+ + | Care Press Box Custodian Name | Role | Phone | + +------+ + | Rahul Silva MD | PCP | | + +------+ + Encounter Details +--------+ + + + + | Date | Type | Department | Care Team | Description | +--------+ + + + + | 10/08/ | Orders Only | [facility] | Farrukh Acuna MD | | | 2016 | | NEPHROLOGY [place] | [address] [place] | | | | | [address] [place] | [address] [place], [place] | | | | | [address] [place], [place] | [address] | | | | | [address] | | | | | | [phone] | | | +--------+ + + + [...] [place] | | | | | | [address] | | | | | | | | +--------+---------+ + + + | 12/06/ | Office | Nephrology | Farrukh Acuna MD | | | 2020 | Visit | | [address] [place] | | | | | | [address] [place] | | | | | | [address] | | | | | | | [...]
--- OUTSIDE RECORDS SUMMARY | ~2019-10-10 | XMS | Encounter Summary ---
Demographics + + + | Address | [address] | | | [place] [address] | + + + | Home Phone [...] Providers + +------+ + | Care Music Journalist Name | Role | Phone | + +------+ + | Rahul Silva MD | PCP | | + +------+ + Encounter Details +--------+ + + + + | Date | Type | Department | Care Team | Description | +--------+ + + + + | 10/05/ | Orders Only | [facility] | Farrukh Acuna MD | Essential | | 2019 | | NEPHROLOGY [place] | [address] [place] | hypertension | | | | [address] | [facility] [place] | (Primary Dx); Iron | | | | [address] | [address] | deficiency; | | | | [place], [place] | | Secondary | | | | [address] | | hyperparathyroidism | | | | [phone] | | (HCC); CKD (chronic | | | | | | kidney disease) | | | | | | stage 5, GFR less | | | | | | than 15 ml/min ([facility]) | +--------+ + + [...] [place] | | | | | | [address] | | | | | | | | +--------+---------+ + + + | 12/06/ | Office | Nephrology | Farrukh Acuna MD | | | 2019 | Visit | | [address] [facility] [place] | | | | | | [address] [place], [place] | | | | | | [address] | | | | | | | [...] | | | | | | ml/min ([facility]) | | + +------+--------+ [...] | | | | | | ml/min ([facility]) | | + +------+--------+ + + | Parathyroid Hormone, | Lab | Routin | Essential | Expected: | | Intact | | e | hypertension Iron | 12/05/2019, Expires: | | | | | deficiency | 10/05/2020 | | | | | Secondary | | | | | | hyperparathyroidism | | | | | | ([facility]) CKD (chronic | | | | | | kidney disease) | | | | | | stage 5, GFR less | | | | | | than 15 ml/min ([facility]) | | + +------+--------+ [...]
--- OUTSIDE RECORDS SUMMARY | ~2019-10-10 | XMS | Encounter Summary ---
Demographics + + + | Address | [address] | | | [place] [address] | + + + | Home Phone [...] [place] | | | | | [address] | | + + + + + Care Team Providers + +------+ + | Care Venetian Blind Installer Name | Role | Phone | [...] Clinic | | | | | | [facility], [address] | | | | | | [place], [place] | | | | | | [address] | | | | | | [phone] | | | +--------+ + + + [...] as of this encounter Progress Notes Interface, Geographic Information Systems Analyst In - 01/06/2007 5:03 AM PST CLINIC DATE: 11/10/97 [facility] - FOLLOW-UP VISIT SUBJECTIVE: [...] of narcotic medication misuse. Nelson Melara M.D. Cigarette Making Machine Operator, [facility] MANDY/camryn cc: Robert Carlson M.D. Professor, Vascular Surgery documented in this encounter Plan of Treatment Not on filedocumented as of this encounter Visit Diagnoses Not on filedocumented in this encounter"
--- OUTSIDE RECORDS SUMMARY | ~2019-10-10 | XMS | Encounter Summary ---
Demographics + + + | Address | [address] | | | [place] [address] | + + + | Home Phone [...] Team Providers + +------+ + | Care Volunteer Recruiter Name | Role | Phone | + +------+ + | Rahul Silva MD | PCP | | + +------+ + Encounter Details +--------+---------+ + + + | Date | Type | Department | Care Team | Description | +--------+---------+ + + + | 07/26/ | Office | [facility] | Farrukh Acuna MD | Stage 5 chronic | | 2019 | Visit | NEPHROLOGY [place] | [address] [place] | kidney disease not | | | | [address] | [address] [place], [place] | on chronic dialysis | | | | [address] | [address] | (HCC) (Primary Dx); | | | | [place], [place] | | Edema of lower | | | | [address] | | extremity; Tobacco | | | | [phone] | | dependence syndrome; | | | [...] Also: I see no need for acute DIE FILER. I see no need to send him [...] Notes by Farrukh Acuna MD at 05/31/19 5294 Author: Farrukh Acuna MD Service: (none) Author Type: Physician Filed: 05/31/19 1232 Encounter Date: 05/31/2019 Status: Signed Signal Processing Engineer: Farrukh Acuna MD (Physician) Patient Active Problem [...] 10/2016 with severe pneumonia, severe ZEKE; needed DIE FILER for ~5 weeks b efore renal function recovery mid 12/2016. He was admitted to [facility] for 3 nights in July 2016 [...] 19.5 (A) 05/27/2019 LABPROT 2,445.6 (A) 03/01/2019 [id number] 30 10/08/2018 Assessment: Mr. Andujar is a 78 y.o. male patient with stage IV CKD on a background of diabetes & hypert ension and recent hospitalization for C-diff and hehydration. The most likely pathology here is that of diabetic nephropathy +/- hypertensive nephrosclerosis/arteriolosclerosis. He was hospitalized in 10/2016 with severe pneumonia, severe ZEKE; needed DIE FILER for ~5 weeks b efore renal function [...] Also: I see no need for acute DIE FILER. I see no need to send him [...] | Office | Vascular Surgery | Trisha Conner, MERY | | | 2018 | Visit | | [address] | | | | | | [place] | | | | | | [address] | | | | | | | | +--------+---------+ + + + | 12/06/ | Office | Nephrology | Farrukh Acuna MD | | | 2019 | Visit | | [address] [facility] | | | | | | [address] [place] | | | | | | [address] | | | | | | | [...]
--- OUTSIDE RECORDS SUMMARY | ~2019-10-10 | XMS | Encounter Summary ---
Demographics + + + | Address | [address] | | | [place] [address] | + + + | Home Phone | | + + + | Preferred Language | Unknown | + + + | Marital Status | Single | + + + | Adventist Affiliation | PRO | + + + [...] [place] | | | | | [address] | | + + + + + Care Team Providers + +------+ + | Care Tobacco Cloth Reclaimer Name | Role | Phone | + +------+ + PCP | Unavailable | + +------+ + Encounter Details +--------+ + + + + | Date | Type | Department | Care Team | Description | +--------+ + + + + | 12/28/ | Procedure - | Digestive Health | Record, Operation | Operative Report | | 1996 | | [place] at [facility] [address] | | | | | Transcribed | Ruben Linares | | | | | | Mailcode: [place] | | | | | | [facility] | | | | | | Healing, Building [address] | | | | | | [facility] [place] | | | | | | [address] | | | | | | [phone] | | | +--------+ + + + [...] | + + | 12/28/1996 12:00 AM [facility] | | [facility] | | [address], [place] [address] | | [facility] | | | | OPERATION RECORD | | | | Med Rec No.: [id number] Date: 12/28/96 | | | | Name: Mehran Andujarald Arturo | | | | | | ATTENDING SURGEON: Robert Carlson M.D. | | Professor, | | Vascular Surgery | | | | SENIOR STORAGE ENGINEER(S): Nick Noriega M.D. | | Extruder Operator Horizontal, General Surgery | | | | POSTOPERATIVE DIAGNOSIS(ES): Left stump osteophyte. | | | | OPERATION(S) PERFORMED: Revision of left ctnxq-xqp-etgs amputation | | and excision of stump osteophyte. | | | | SPECIMEN(S) REMOVED: 1. Swab of pseudocapsule for culture. | | 2. Osteophyte to Pathology. | | | | ANESTHESIA: General endotracheal anesthesia. | | | | INDICATIONS: The patient is a 56-year-old white male who | | is status post left tkqxu-ikk-ytwv | | amputation three years ago secondary | | to embolus. He has developed pain over the stump. A recent CT scan showed | | an osteophyte growing on the end of the stump. | | | | PROCEDURE: The patient was taken to the Operating Room. | | General endotracheal anesthesia was | | performed by Anesthesia. The | | left rkvau-qyz-utaz amputation stump was sterilely prepped and draped [...] | | Nick Noriega M.D. | | Extruder Operator Horizontal, General Surgery | | Robert Carlson M.D. | | Professor, | | Vascular Surgery | | | | DOMINIC/jc | | | | A | | | | cc: | | | + + documented in this encounter Visit Diagnoses Not on filedocumented in this encounter"
--- OUTSIDE RECORDS SUMMARY | ~2019-10-10 | XMS | Encounter Summary ---
Demographics + + + | Address | [address] | | | [place] [address] | + + + | Home Phone [...] Providers + +------+ + | Care Manager Commercial Name | Role | Phone | + +------+ + | Rahul Silva MD | PCP | | + +------+ + Encounter Details +--------+---------+ + + + | Date | Type | Department | Care Team | Description | +--------+---------+ + + + | 10/04/ | Office | [facility] | Farrukh Acuna MD | CKD (chronic kidney | | 2019 | Visit | NEPHROLOGY [place] | [address] [place] | disease) stage 5, | | | | [address] | [address] [place], [place] | GFR less than 15 | | | | [address] | [address] | ml/min (HCC) | | | | [place], [place] | | (Primary Dx); Anemia | | | | [address] | | of chronic kidney | | | | [phone] | | failure, stage 5 | | | | | | (HCC); Essential | | | | | | hypertension; Iron | | | | | | deficiency; | | | | | | Secondary | | | | | | hyperparathyroidism | | | | | | ([facility]); 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, with | | | | | | long-term current | | | | | | use of insulin | | | | | | ([facility]); Edema of | | | | | [...] 10/2016 with severe pneumonia, severe ZEKE; needed SOLAR INSTALLER PV for ~5 weeks b efore renal function recovery mid 12/2016. He was admitted to [facility] for 3 nights in July 2016 [...] 19.5 (A) 05/27/2019 LABPROT 2,445.6 (A) 03/01/2019 [id number] 30 10/08/2018 Assessment: Mr. Andujar is a 78 y.o. male patient with stage IV CKD on a background of diabetes & hypert ension and recent hospitalization for C-diff and hehydration. The most likely pathology here is that of diabetic nephropathy +/- hypertensive nephrosclerosis/arteriolosclerosis. He was hospitalized in 10/2016 with severe pneumonia, severe ZEKE; needed SOLAR INSTALLER PV for ~5 weeks b efore renal function [...] Also: I see no need for acute SOLAR INSTALLER PV. I see no need to send him [...] [place] | | | | | | [id number] | | | | | | | | +--------+---------+ + + + | 12/06/ | Office | Nephrology | Farrukh Acuna MD | | | 2019 | Visit | | [address] [facility] | | | | | | [facility] | | | | | | [address] | | | | | | | | +--------+---------+ + + + documented as of this encounter Visit Diagnoses + + | Diagnosis | + + | CKD (chronic kidney disease) stage 5, GFR less than 15 ml/min ([facility]) - Primary Chronic | | kidney disease, [...]
--- OUTSIDE RECORDS SUMMARY | ~2019-10-10 | XMS | Encounter Summary ---
Demographics + + + | Address | [address] | | | [place] [address] | + + + | Home Phone [...] Team Providers + +------+ + | Care Import Coordinator Name | Role | Phone | [...] | | | hip | [address] | | | | | | fracture, | [place] | | | | | | initial | [place], [place] | | | | | | encounter | [address] | | | | | | ([facility]) | Phone: | | | | | | Status post | [phone] | | | | | | above knee | Fax: | | | | | | amputation | [phone] | | | | | | of [...] + + | 08/03/ | Hospital | [facility] | Jose Andrade | Laceration of left | | 2016 - | Encounter | [facility] | MD Mehrdad [address] | ear, initial | | | | [address] [place] | [address] [place] | encounter (Primary | | 08/05/ | | [place] [address] | [place] [address] | Dx); Closed left hip | | 2016 | | [phone] | [phone] | fracture, initial | | | | | | encounter ([facility]); | | | | | Guillermo Atkins, | Fall, initial | | | | | DO [address] | encounter; Acute | | | | | [address] [place], | pain; Hyperkalemia; | | | | | [place] [address] | CKD (chronic kidney | | | | | [phone] | disease), | | | | | [...] | | | | | | encounter ([facility]); | | | | | | PAOLO on CPAP; Status | | | | | | post fall; Status | | | | | | 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 | | | | | | lower extremity | | | | | | ([facility]); Phantom limb | | | | | | pain ([facility]) | +--------+ + + + + [...] Bolivar MD - 08/05/2016 1:07 PM PDT [facility] DISCHARGE SUMMARY Pt. Name/Age/: Kavon Andujar 76 [...] mg by mouth nightly. aka: LIPITOR Cholecalciferol 65971 units Caps Take 50,000 Units by mouth [...] in 7-10 days Contact information: [address] [place] [id number] PENDING RESULTS: HOSPITAL COURSE: Please refer to [...] signed by: Petey Bolivar MD, 08/05/2016 13:07 [facility] Portions of this chart may have been created with [employer] voice recognition software. Occasi onal wrong-word or sound-alike substitutions may have occurred due to the inherent vanegas itations of voice recognition software. Please read the chart carefully and recognize, using context, where these substitutions have occurred documented in this encounter Discharge Instructions Instructions Maritza Devries RN - 08/05/2016Please call Dr. Tobar at [phone] for an y questions or concerns regarding [...] 0 | | | | (VITAMIN D-3) [address] | mouth Every 3 | | | [...] might be differ ent from the original. [facility] Hospitalist Progress Note Kavon Andujar is a [...] Clear Clear PH UA 5.0 5.0-8.0 Specific [place] 1.015 1.001-1.030 PROTEIN UA 100 mg/dL (A) [...] as outlined above. Sonu Michel 08/04/2016 11:33 [facility] Yuriy Farrell RRT - 08/04/2016 8:42 [...] [place] | | | | | | [address] | | | | | | | | +--------+---------+ + + + | 12/06/ | Office | Nephrology | Farrukh Acuna MD | | | 2020 | Visit | | [address] [facility] [place] | | | | | | [address] [place] | | | | | | [address] | | | | | | | [...] until | | | | | encounter ([facility]) | 08/04/2016 | | | | | Status post above | | | | | | knee amputation of | | | | | | left lower extremity | | | | | | ([facility]) | | + +------+--------+ + + | DME: Walker | DME | Routin | Closed left hip | Ordered: 08/05/2016 | | | | e | fracture, initial | | | | | | encounter ([facility]) | | | | | | Status post above | | | | | | knee amputation of | | | | | | left lower extremity | | | | | | ([facility]) | | + +------+--------+ + + [...] + | [facility] | [address] | [place] | [phone] | | [facility] | | [address] | | | - LABORATORY | | [...] not | 37 (L)Comment: | >=60 | [facility] | | | | GLOMERULAR FILTRATION | mL/min/1.73m2 | [facility] | | | [place] | RATE,ESTIMATED | | MEDICAL | | | | mL/min/1.13g1Cqfl than | | CENTER - | | [...] | 8.3 | 8.3 - 10.5 | [facility] | | | | | mg/dL | [facility] | | | | | | MEDICAL | | | | | | CENTER - | | | | | | LABORATORY | | + + + + + + | Albumin | 2.8 (L) | 3.2 - 5.0 g/dL | [facility] | | | | | | [facility] | | | | | [...] + | BUN/Creatin | 19.4 | | [facility] | | | ine Ratio | | [...] [address] | [place] | [phone] | | [facility] | | [address] | | | - LABORATORY | | [...] [address] | [place] | [phone] | | [facility] | | [address] | | | - LABORATORY | | [...] + | [facility] | [address] | [place] | [phone] | | [facility] | | [address] | | | - LABORATORY | | | | + + + + + Magnesium (08/05/2016 6:44 AM PDT) + +---------+ + + + | Component | Value | Ref Range | Performed | Pathologist | | | | | At | Signature | + +---------+ + + + | Magnesium | 2.7 (H) | 1.8 - 2.5 mg/dL | [facility] | | | | [...] [address] | [place] | [phone] | | [facility] | | [address] | | | - LABORATORY | | [...] [address] | [place] | [phone] | | [facility] | | [address] | | | - LABORATORY | | [...] + | [facility] | [address] | [place] | [phone] | | [facility] | | [address] | | | - LABORATORY | | [...] [address] | [place] | [phone] | | [facility] | | [address] | | | - LABORATORY | | | | + + + + + Baylee DEGROOT (08/04/2016 5:32 AM PDT) + + + + + + | Component | Value | Ref Range | Performed | Pathologist | | | | | At | Signature | + + + + + + | Prothrombin | 14.6 (H) | 11.3 - 13.9 | [facility] | | | Time | | seconds | [facility] | | | | [...] [address] | [place] | [phone] | | [facility] | | [address] | | | - LABORATORY | | | | + + + + + Magnesium (08/04/2016 5:32 AM PDT) + +---------+ + + + | Component | Value | Ref Range | Performed | Pathologist | | | | | At | Signature | + +---------+ + + + | Magnesium | 2.9 (H) | 1.8 - 2.5 mg/dL | [facility] | | | | [...] [address] | [place] | [phone] | | [facility] | | [address] | | | - LABORATORY | | [...] | | Neutrophils | | K/uL | [facility] | | [...] | Basophils | | K/uL | [facility] | | | | | [...] [address] | [place] | [phone] | | [facility] | | [address] | | | - LABORATORY | | [...] (H) | 7 - 18 mg/dL | [facility] | | | | | | [facility] | | | | | | MEDICAL | | | | | | CENTER - | | | | | | LABORATORY | | + + + + + + | Creatinine | 2.09 (H) | 0.60 - 1.30 | [facility] | | | | | mg/dL | [facility] | | | | | | MEDICAL | | | | | | CENTER - | | | | | | LABORATORY | | + + + + + + | eGFR if not | 31 (L)Comment: | >=60 | [facility] | | | | GLOMERULAR FILTRATION | mL/min/1.73m2 | [facility] | | | [place] | RATE,ESTIMATED | | MEDICAL | | | | mL/min/1.69n3Lrwu than | | CENTER - | | [...] + | [facility] | [address] | [place] | [phone] | | [facility] | | [address] | | | - LABORATORY | | [...] - 1.030 | [facility] | | | [place] | | | [facility] | | [...] | | | EPITHELIAL | | | [facility] | | | UA | | | [...] | | COMMENT | Indicated | | [facility] | [...] + | [address] [facility] | [address] | [place] | [phone] | | [facility] | | [address] | | | - LABORATORY | | [...] | | | | AYAH RON MD ([id number]) | | | | | | on [...] | | | | | M/uL | [facility] | | [...] | Basophils | | K/uL | [facility] | | | | [...] [address] | [place] | [phone] | | [facility] | | [address] | | | - LABORATORY | | [...] + | [facility] | [address] | [place] | [phone] | | [facility] | | [address] | | | - LABORATORY | | [...] [address] | [place] | [phone] | | [facility] | | [address] | | | - LABORATORY | | [...] | | | Lavender | | | STLedy LOO | | | Top Tube | [...] ST. | [address] | [place] | [phone] | | [facility] | | [address] | | | - LABORATORY | | [...] | Top Tube | | | [facility] | | | | | [...] [address] | [place] | [phone] | | [facility] | | [address] | | | - LABORATORY | | [...] 101 | 98 - 109 mmol/L | [facility] | | | | | | [facility] | | | | | | MEDICAL | | | | | | CENTER - | | | | | | LABORATORY | | + + + + + + | CO2 | 22 (L) | 24 - 31 mmol/L | [facility] | | | | | | ST. [...] 109 mg/dL | [facility] | | | | | | [facility] | | | | | | MEDICAL | | | | | | CENTER - | | | | | | LABORATORY | | + + + + + + | BUN | 36 (H) | 7 - 18 mg/dL | [facility] | | | | | | [facility] | | | | | | MEDICAL | | | | | | CENTER - | | | | | | LABORATORY | | + + + + + + | Creatinine | 2.03 (H) | 0.60 - 1.30 | [facility] | | | | | mg/dL | [...] mL/min/1.73m2 | [facility] | | | [place] | RATE,ESTIMATED | | MEDICAL | | | | mL/min/1.86a7Bgeq than | | CENTER - | | [...] | | ine Ratio | | | [facility] | | | [...] [address] | [place] | [phone] | | [facility] | | [address] | | | - LABORATORY | | [...] Insulin dependent type 2 diabetes mellitus, uncontrolled ([facility]) Type II or unspecified | | type diabetes mellitus without mention of complication, uncontrolled | + + | PAOLO on CPAP Obstructive sleep apnea (adult) (pediatric) | + + | Status post fall Unspecified fall | + + | Status post above knee amputation of left lower extremity | + + | Phantom limb pain ([facility]) Phantom limb (syndrome) | + + | [...] | | | | | Intravenous, ONCE, Adamaris 08/04/16 at | | AM PDT | [...] | | | | | | | 8354-9102 Use NIGHT DOSE for | | | | | | | doses scheduled: HS, 3AM, | | | | | | | Nighttime 7584-4501, | | | | | | + [...] | +---+---+ + +-------+ +---------+---+ + | bcdjavu-cltwvakkwa-rnecmhent | Given | 08/03/20 | 0.5 mLs [...]
--- OUTSIDE RECORDS SUMMARY | ~2019-10-10 | XMS | Encounter Summary ---
Demographics + + + | Address | [address] | | | [place] [address] | + + + | Home Phone [...] Team Providers + +------+ + | Care Brusher Machine Name | Role | Phone | [...] [address] | | | | | [place], [place] | [place], [place] | | | | | [address] | [address] | | | | | [phone] | [phone] | | | | | | | [...] [place] | | | | | | [address] | | | | | | | | +--------+---------+ + + + | 12/06/ | Office | Nephrology | Farrukh Acuna MD | | | 2019 | Visit | | [address] [facility] [place] | | | | | | [address] [place] | | | | | | [address] | | | | | | | [...]
--- OUTSIDE RECORDS SUMMARY | ~2019-10-10 | XMS | Encounter Summary ---
Demographics + + + | Address | [address] | | | [place] [address] | + + + | Home Phone [...] Providers + +------+ + | Care Machine Leather Trimmer Name | Role | Phone | + [...] + + | 08/13/ | Telephone | [facility] | Farrukh Acuna MD | Other (lab result) | | 2019 | | NEPRHOLOGY [place] | [address] [facility] [address] [place] | | | | | [address] | [address] [place], [place] | | | | | [address] [place], [place] | [address] | | | | | [address] | | | | | | [phone] | | | +--------+ + + + [...] [place] | | | | | | [address] | | | | | | | | +--------+---------+ + + + | 12/06/ | Office | Nephrology | Farrukh Acuna MD | | | 2020 | Visit | | [address] [facility] | | | | | | [address] [place] | | | | | | [address] | | | | | | | | +--------+---------+ + + + documented as of this encounter Visit Diagnoses Not on filedocumented in this encounter"
--- OUTSIDE RECORDS SUMMARY | ~2019-10-10 | XMS | Encounter Summary ---
Demographics + + + | Address | [address] | | | [place] [address] | + + + | Home Phone [...] + | 05/27/ | Orders Only | [facility] | Farrukh Acuna MD | | | 2019 | | NEPHROLOGY [place] | [address] [place] | | | | | [address] [place] | [address] [place], [place] | | | | | [address] [place], [place] | [address] | | | | | [address] | | | | | | [phone] | | | +--------+ + + + [...] [place] | | | | | | [id number] | | | | | | | | +--------+---------+ + + + | 12/06/ | Office | Nephrology | Farrukh Acuna MD | | | 2020 | Visit | | [address] [place] | | | | | | [address] [place] | | | | | | [address] | | | | | | | [...]
--- OUTSIDE RECORDS SUMMARY | ~2019-10-10 | XMS | Encounter Summary ---
Demographics + + + | Address | [address] | | | [place] [address] | + + + | Home Phone [...] Providers + +------+ + | Care Chemical Engineer Name | Role | Phone | + +------+ + | Rahul Silva MD | PCP | | + +------+ + Encounter Details +--------+ + + + + | Date | Type | Department | Care Team | Description | +--------+ + + + + | 07/14/ | Orders Only | [facility] | Conversion | | | 2018 | | NEPRHOLOGY [place] | Transaction, | | | | | [address] | Provider Unknown | | | | | [address] [place], [place] | [phone] | | | | | [address] | (Fax) | | | | | [phone] | | | +--------+ + + + [...] [place] | | | | | | [address] | | | | | | | | +--------+---------+ + + + | 12/06/ | Office | Nephrology | Farrukh Acuna MD | | | 2019 | Visit | | [address] | | | | | | [address] [place] | | | | | | [address] | | | | | | | [...]
--- OUTSIDE RECORDS SUMMARY | ~2019-10-10 | XMS | Encounter Summary ---
Demographics + + + | Address | [address] | | | [place] [address] | + + + | Home Phone [...] Team Providers + +------+ + | Care Perianesthesia Rn Name | Role | Phone | [...] N Young | | | | | [place], [place] | [place], [place] | | | | | [address] | [address] | | | | | [phone] | [phone] | | | | | | | [...] [place] | | | | | | [address] | | | | | | | | +--------+---------+ + + + | 12/06/ | Office | Nephrology | Farrukh Acuna MD | | | 2019 | Visit | | [address] [facility] | | | | | | [address] [place] | | | | | | [address] | | | | | | | [...]
--- OUTSIDE RECORDS SUMMARY | ~2019-10-10 | XMS | Encounter Summary ---
Demographics + + + | Address | [address] | | | [place] [address] | + + + | Home Phone [...] Team Providers + +------+ + | Care Deliver Driver Name | Role | Phone | + +------+ + | Rahul Silva MD | PCP | | + +------+ + Encounter Details +--------+ + + + + | Date | Type | Department | Care Team | Description | +--------+ + + + + | 03/01/ | Orders Only | [facility] | Conversion | | | 2019 | | NEPHROLOGY [place] | Transaction, | | | | | [address] | Provider Unknown | | | | | [address] [place] | | | | | | [address] | (Fax) | | | | | [phone] | | | +--------+ + + + [...] [place] | | | | | | [address] | | | | | | | | +--------+---------+ + + + | 12/06/ | Office | Nephrology | Farrukh Acuna MD | | | 2019 | Visit | | [address] | | | | | | [address] [place] | | | | | | [address] | | | | | | | [...] - 1.030 | EXTERNAL | | | [place] | | | LAB | | + [...] | | | LAB | | | [facility] | | | | | + + [...]
--- OUTSIDE RECORDS SUMMARY | ~2019-10-10 | XMS | Encounter Summary ---
Demographics + + + | Address | [address] | | | [place] [address] | + + + | Home Phone [...] Team Providers + +------+ + | Care Tailer In Name | Role | Phone | + [...] N Young | | | | | [place], [place] | [place], [place] | | | | | [address] | [address] | | | | | [phone] | [phone] | | | | | | | [...] [place] | | | | | | [address] | | | | | | | | +--------+---------+ + + + | 12/06/ | Office | Nephrology | Farrukh Acuna MD | | | 2019 | Visit | | [address] [facility] | | | | | | [address] [place] | | | | | | [address] [...]
--- OUTSIDE RECORDS SUMMARY | ~2019-10-10 | XMS | Encounter Summary ---
Demographics + + + | Address | [address] | | | [place] [address] | + + + | Home Phone [...] Team Providers + +------+ + | Care Braze Operator Name | Role | Phone | [...] N Young | | | | | [place], [place] | [place], [place] | | | | | [address] | [address] | | | | | [phone] | [phone] | | | | | | | [...] [place] | | | | | | [address] | | | | | | | | +--------+---------+ + + + | 12/06/ | Office | Nephrology | Farrukh Acuna MD | | | 2019 | Visit | | [address] [facility] | | | | | | [address] [place] | | | | | | [address] | | | | | | | [...]
--- OUTSIDE RECORDS SUMMARY | ~2019-10-10 | XMS | Encounter Summary ---
Demographics + + + | Address | [address] | | | [place] [address] | + + + | Home Phone [...] Team Providers + +------+ + | Care Fibre Composite Technician Name | Role | Phone | + +------+ + | Rahul Silva MD | PCP | | + +------+ + Encounter Details +--------+ + + + + | Date | Type | Department | Care Team | Description | +--------+ + + + + | 07/27/ | Orders Only | [facility] | Farrukh Acuna MD | Chronic kidney | | 2019 | | NEPHROLOGY [place] | [address] [place] | disease, stage IV | | | | [address] [place] | 160 [place], [place] | (severe) (HCC); | | | | 160 [place], [place] | [address] | Chronic kidney | | | | [address] | | disease, stage IV | | | | [phone] | | (severe) (HCC); | | | [...] [place] | | | | | | [address] | | | | | | | | +--------+---------+ + + + | 12/06/ | Office | Nephrology | Farrukh Acuna MD | | | 2019 | Visit | | [address] [facility] | | | | | | 160 [place], [place] | | | | | | [address] | | | | | | | [...]
--- OUTSIDE RECORDS SUMMARY | ~2019-10-10 | XMS | Encounter Summary ---
Demographics + + + | Address | [address] | | | [place] [address] | + + + | Home Phone [...] Team Providers + +------+ + | Care Hog Slaughterer Name | Role | Phone | + +------+ + | Rahul Silva MD | PCP | | + +------+ + Encounter Details +--------+ + + + + | Date | Type | Department | Care Team | Description | +--------+ + + + + | 06/23/ | Orders Only | [facility] | Farrukh Acuna MD | | | 2018 | | NEPHROLOGY [place] | [address] [place] | | | | | [address] [place] | [address] [place], [place] | | | | | [address] [place], [place] | [address] | | | | | [address] | | | | | | [phone] | | | +--------+ + + + [...] [place] | | | | | | [address] | | | | | | | | +--------+---------+ + + + | 12/06/ | Office | Nephrology | Farrukh Acuna MD | | | 2020 | Visit | | [address] | | | | | | [address] [place] | | | | | | [address] | | | | | | | [...]
--- OUTSIDE RECORDS SUMMARY | ~2019-10-10 | XMS | Encounter Summary ---
Demographics + + + | Address | [address] | | | [place] [address] | + + + | Home Phone [...] + +------+ + | Care Signals Intelligence Analyst Name | Role | Phone | + +------+ + PCP | Unavailable | + +------+ + Encounter Details +--------+ + + + + | Date | Type | Department | Care Team | Description | +--------+ + + + + | 12/31/ | [facility] | [facility] | | | | 2000 | Encounter | MED CTR XRAY [address] | | | | | | [address] [place] | | | | | | [place] [address] | | | | | | [phone] | | | +--------+ + + + [...] [place] | | | | | | [id number] | | | | | | | | +--------+---------+ + + + | 12/06/ | Office | Nephrology | Farrukh Acuna MD | | | 2019 | Visit | | [address] [facility] | | | | | | [address] [place], [place] | | | | | | [address] | | | | | | | | +--------+---------+ + + + documented as of this encounter Visit Diagnoses Not on filedocumented in this encounter"
--- OUTSIDE RECORDS SUMMARY | ~2019-10-10 | XMS | Encounter Summary ---
Demographics + + + | Address | [address] | | | [place] [address] | + + + | Home Phone [...] Team Providers + +------+ + | Care Enologist Name | Role | Phone | + +------+ + | Rahul Silva MD | PCP | | + +------+ + Encounter Details +--------+ + + + + | Date | Type | Department | Care Team | Description | +--------+ + + + + | 07/30/ | Orders Only | [facility] | Conversion | | | 2016 | | NEPRHOLOGY [place] | Transaction, | | | | | [address] | Provider Unknown | | | | | [address] [place], [place] | [phone] | | | | | [address] | (Fax) | | | | | [phone] | | | +--------+ + + + [...] [place] | | | | | | [address] | | | | | | | | +--------+---------+ + + + | 12/06/ | Office | Nephrology | Farrukh Acuna MD | | | 2019 | Visit | | [address] [place] | | | | | | [address] [place] | | | | | | [address] | | | | | | | [...]
--- OUTSIDE RECORDS SUMMARY | ~2019-10-10 | XMS | Encounter Summary ---
Demographics + + + | Address | [address] | | | [place] [address] | + + + | Home Phone [...] Providers + +------+ + | Care Welder Oxyhydrogen Name | Role | Phone | + [...] + + | 08/25/ | Telephone | [facility] | Brian Orosco MD | New Patient (08/26 | | 2019 | | VASCULAR SURGERY | [address] | appointment) | | | | [address] [place] | [place], [place] | | | | | [place], [place] | [address] | | | | | [address] | [phone] | | | | | [phone] | | | +--------+ + + + [...] [place] | | | | | | [address] | | | | | | | | +--------+---------+ + + + | 12/06/ | Office | Nephrology | Farrukh Acuna MD | | | 2020 | Visit | | [address] [facility] | | | | | | [address] [place] | | | | | | [address] | | | | | | | | +--------+---------+ + + + documented as of this encounter Visit Diagnoses Not on filedocumented in this encounter"
--- OUTSIDE RECORDS SUMMARY | ~2019-10-10 | XMS | Encounter Summary ---
Demographics + + + | Address | [address] | | | [place] [address] | + + + | Home Phone [...] [place] | | | | | [address] | | + + + + + Care Team Providers + +------+ + | Care Clock Maker Name | Role | Phone | [...] Clinic | | | | | | [facility], [address] | | | | | | [place], [place] | | | | | | [address] | | | | | | [phone] | | | +--------+ + + + [...] as of this encounter Progress Notes Interface, Head Of It In - 01/03/2007 5:08 AM PST CLINIC DATE: 12/22/97 Mr. Andujar is referred by Dr. Jerry Smiley in the [place] area. He is currently followed by the Anesthesia Pain Service at [facility], and also recently has been followed [...] under Dr. Robert Carlson's supervision here at [facility]. His pain continued, exacerbated by a [...] procedure at this time. Eric Mcclure M.D. [place], Department of Orthopaedics and Rehabilitation AY/sara A cc: Jerry Smiley M.D. (with letter) [address] [place] [address] [address] [place] [address] Robert Carlson M.D. FAX: [phone] Alina Moise M.D. FAX: [phone] [facility]hesia Pain ClinicFAX: [phone] documented in this encounter Plan of Treatment Not on filedocumented as of this encounter Visit Diagnoses Not on filedocumented in this encounter
--- OUTSIDE RECORDS SUMMARY | ~2019-10-10 | XMS | Encounter Summary ---
Demographics + + + | Address | [address] | | | [place] [address] | + + + | Home Phone [...] Team Providers + +------+ + | Care Tank Filler Name | Role | Phone | + +------+ + | Rahul Silva MD | PCP | | + +------+ + Encounter Details +--------+ + + + + | Date | Type | Department | Care Team | Description | +--------+ + + + + | 10/01/ | Telephone | [facility] | Farrukh Acuna MD | | | 2018 | | NEPHFLORES [place] | [address] [facility] [place] | | | | | [address] | [address] [place], [place] | | | | | [place] [address] | [address] | | | | | [address] | | | | | | [phone] | | | +--------+ + + + [...] [place] | | | | | | [address] | | | | | | | | +--------+---------+ + + + | 12/06/ | Office | Nephrology | Farrukh Acuna MD | | | 2019 | Visit | | [address] [facility] [address] [place] | | | | | | [address] [place] | | | | | | [address] | | | | | | | | +--------+---------+ + + + documented as of this encounter Visit Diagnoses Not on filedocumented in this encounter"
--- OUTSIDE RECORDS SUMMARY | ~2019-10-10 | XMS | Encounter Summary ---
Demographics + + + | Address | [address] | | | [place] [address] | + + + | Home Phone [...] + +------+ + | Care Manager Of International Name | Role | Phone | + +------+ + | Rahul Silva MD | PCP | | + +------+ + Encounter Details +--------+ + + + + | Date | Type | Department | Care Team | Description | +--------+ + + + + | 03/24/ | Orders Only | [facility] | Farrukh Acuna MD | | | 2017 | | NEPHROLOGY [place] | [address] [place] | | | | | [address] [place] | [address] [place], [place] | | | | | [address] [place], [place] | [address] | | | | | [address] | | | | | | [phone] | | | +--------+ + + + [...] [place] | | | | | | [address] | | | | | | | | +--------+---------+ + + + | 12/06/ | Office | Nephrology | Farrukh Acuna MD | | | 2020 | Visit | | [address] [place] | | | | | | [address] [place] | | | | | | [address] | | | | | | | [...]
--- OUTSIDE RECORDS SUMMARY | ~2019-10-10 | XMS | Encounter Summary ---
Demographics + + + | Address | [address] | | | [place] [address] | + + + | Home Phone [...] [place] | | | | | [address] | | + + + + + Care Team Providers + +------+ + | Care Blender Machine Operator Name | Role | Phone | + +------+ + PCP | Unavailable | + +------+ + Encounter Details +--------+ + + + + | Date | Type | Department | Care Team | Description | +--------+ + + + + | 12/22/ | Transcribed | Allergy Clinic at | [place], Other | Transcribed | | 1997 | | [facility] [address] | | | | | | [address] | | | | | | Mailcode: OP34 [address] | | | | | | [address] [place] | | | | | | [place], | | | | | | [place] [address] | | | | | | [phone] | | | +--------+ + + + [...] as of this encounter Progress Notes Interface, Marble Worker In - 01/03/2007 5:08 AM PST [address] [address] Department of Orthopaedics, [facility] [employer] [facility] OP19 December 21, 1997 Jerry Smiley M.D. [address] [place] [id number] RE:Kavon Andujar MR#:[id number] Smiley: Thank [...] like. Sincerely, Eric Mcclure M.D. Pest Control Service Sales Agent, Department of Orthopaedics and Rehabilitation ERICK/sara A documented in this encounter Plan of Treatment Not on filedocumented as of this encounter Visit Diagnoses Not on filedocumented in this encounter"
--- OUTSIDE RECORDS SUMMARY | ~2019-10-10 | XMS | Encounter Summary ---
Demographics + + + | Address | [address] | | | [place] [address] | + + + | Home Phone [...] Providers + +------+ + | Care Field Control Inspector Name | Role | Phone | + +------+ + | Rahul Silva MD | PCP | | + +------+ + Encounter Details +--------+ + + + + | Date | Type | Department | Care Team | Description | +--------+ + + + + | 01/23/ | Orders Only | [facility] | Collin Mirza, | | | 2015 | | NEPHROLOGY [place] | [address] | | | | | [address] [place] | [address] | | | | | [address] [place], [place] | [place] | | | | | [address] | [address] | | | | | [phone] | [phone] | | | | | | | [...] | | | | | [place] | | | | | | [address] | | | | | | | | +--------+---------+ + + + | 12/06/ | Office | Nephrology | Farrkuh Acuna MD | | | 2019 | Visit | | [address] [place] | | | | | | [address] [place] | | | | | | [address] | | | | | | | [...] | | | LAB | | | [facility] | | | | | + + [...]
--- OUTSIDE RECORDS SUMMARY | ~2019-10-10 | XMS | Encounter Summary ---
Demographics + + + | Address | [address] | | | [place] [address] | + + + | Home Phone [...] Team Providers + +------+ + | Care Report Clerk Name | Role | Phone | [...] + + | 09/10/ | Anesthesia | [facility] | Venkata Carroll | | | 2019 | [facility] | [address] | | | | | OPERATING ROOM [address] | | | | | [address] | [place] [address] | | | | | [place], [place] | [phone] | | | | | [address] | | | | | | [phone] | | | +--------+ + + + + Anesthesia Record + + + + + | Procedure Name | Responsible | Anesthesia Start | Anesthesia Stop Time | | | Anesthesiologist | Time | | + + + + + | INSERTION AV FISTULA | Venkata Carroll, | 09/10/19 1307 | 09/10/19 1401 | | (Right BBF) (Right | RN HYPERBARIC | | | | Arm Upper) | [...] 09/10/19 1600 by | | amor | rqtf-cuo-[id number] catheter system; | Trinidad Ramírez | Leana [...] [place] | | | | | | [address] | | | | | | | | +--------+---------+ + + + | 12/06/ | Office | Nephrology | Farrukh Acuna MD | | | 2019 | Visit | | [address] [place] | | | | | | [address] [place] | | | | | | [address] | | | | | | | [...]
--- OUTSIDE RECORDS SUMMARY | ~2019-10-10 | XMS | Encounter Summary ---
Demographics + + + | Address | [address] | | | [place] [address] | + + + | Home Phone [...] Providers + +------+ + | Care Hydraulic Boom Operator Name | Role | Phone | + +------+ + | Rahul Silva MD | PCP | | + +------+ + Encounter Details +--------+ + + + + | Date | Type | Department | Care Team | Description | +--------+ + + + + | 07/14/ | Orders Only | [facility] | Farrukh Acuna MD | | | 2018 | | NEPRHOLOGY [place] | [address] | | | | | [address] [place] | 160 [place], [place] | | | | | [address] [place], [place] | [address] | | | | | [address] | | | | | | [phone] | | | +--------+ + + + [...] [place] | | | | | | [address] | | | | | | | | +--------+---------+ + + + | 12/06/ | Office | Nephrology | Farrukh Acuna MD | | | 2020 | Visit | | [address] [facility] [address] [place] | | | | | | [address] [place] | | | | | | [address] | | | | | | | [...]
--- OUTSIDE RECORDS SUMMARY | ~2019-10-10 | XMS | Encounter Summary ---
Demographics + + + | Address | [address] | | | [place] [address] | + + + | Home Phone [...] Team Providers + +------+ + | Care Soils Engineer Name | Role | Phone | [...] [address] | | | | | [place], [place] | [place], [place] | | | | | [address] | [address] | | | | | [phone] | [phone] | | | | | | | [...] [place] | | | | | | [address] | | | | | | | | +--------+---------+ + + + | 12/06/ | Office | Nephrology | Farrukh Acuna MD | | | 2019 | Visit | | [address] [facility] | | | | | | [address] [place] | | | | | | [address] | | | | | | | [...]
--- OUTSIDE RECORDS SUMMARY | ~2019-10-10 | XMS | Encounter Summary ---
Demographics + + + | Address | [address] | | | [place] [address] | + + + | Home Phone [...] [place] | | | | | [address] | | + + + + + Care Team Providers + +------+ + | Care Workers Compensation Analyst Name | Role | Phone | [...] [address] | | | | | | [place], [place] | | | | | | [address] | | | | | | [phone] | | | +--------+ + + + [...] as of this encounter Progress Notes Interface, Battery Inspector In - 01/09/2007 5:07 AM PST CLINIC DATE: 10/03/97 [facility] - PROGRESS NOTE [...] Vargas D.O. Resident, Anesthesiology Nelson Melara M.D. Mill Work, [facility] KAYLEENM/madelinev cc: [place] [address] JESSENIA RODRIGUEZ MD DEPARTMENT OF FAMILY MEDICINE [facility] documented in this encounter Plan of Treatment Not on filedocumented as of this encounter Visit Diagnoses Not on filedocumented in this encounter"
--- OUTSIDE RECORDS SUMMARY | ~2019-10-10 | XMS | Encounter Summary ---
Demographics + + + | Address | [address] | | | [place] [address] | + + + | Home Phone [...] Team Providers + +------+ + | Care Heat Set Operator Name | Role | Phone | + +------+ + | Rahul Silva MD | PCP | | + +------+ + Encounter Details +--------+ + + + + | Date | Type | Department | Care Team | Description | +--------+ + + + + | 09/18/ | Orders Only | [facility] | Conversion | | | 2018 | | NEPHROLOGY [place] | Transaction, | | | | | [address] | Provider Unknown | | | | | [address] [place] | | | | | | [address] | (Fax) | | | | | [phone] | | | +--------+ + + + [...] [place] | | | | | | [address] | | | | | | | | +--------+---------+ + + + | 12/06/ | Office | Nephrology | Farrukh Acuna MD | | | 2019 | Visit | | [address] [place] | | | | | | [address] [place] | | | | | | [address] | | | | | | | [...]
--- OUTSIDE RECORDS SUMMARY | ~2019-10-10 | XMS | Encounter Summary ---
Demographics + + + | Address | [address] | | | [place] [address] | + + + | Home Phone [...] Team Providers + +------+ + | Care Camelid Fiber Sorter Name | Role | Phone | + +------+ + | Rahul Silva MD | PCP | | + +------+ + Encounter Details +--------+ + + + + | Date | Type | Department | Care Team | Description | +--------+ + + + + | 07/18/ | Orders Only | [facility] | Conversion | | | 2015 | | NEPHROLOGY [place] | Transaction, | | | | | [address] [facility] | Provider Unknown | | | | | [place] | [phone] | | | | | [address] | | | | | | [phone] | | | +--------+ + + + [...] [place] | | | | | | [address] | | | | | | | | +--------+---------+ + + + | 12/06/ | Office | Nephrology | Farrukh Acuna MD | | | 2019 | Visit | | [facility] [address] [facility] | | | | | | [address] [place] | | | | | | [address] | | | | | | | [...] - 1.030 | EXTERNAL | | | [place] | | | LAB | | + [...]
--- OUTSIDE RECORDS SUMMARY | ~2019-10-10 | XMS | Encounter Summary ---
Demographics + + + | Address | [address] | | | [place] [address] | + + + | Home Phone [...] Providers + +------+ + | Care Student Affairs Dean Name | Role | Phone | + [...] [address] | | | | | [place], [place] | [place], [place] | | | | | [address] | [address] | | | | | [phone] | [phone] | | | | | | | [...] [place] | | | | | | [address] | | | | | | | | +--------+---------+ + + + | 12/06/ | Office | Nephrology | Farrukh Acuna MD | | | 2019 | Visit | | [address] [facility] | | | | | | [address] [place] | | | | | | [address] | | | | | | | [...]
--- OUTSIDE RECORDS SUMMARY | ~2019-10-10 | XMS | Encounter Summary ---
Demographics + + + | Address | [address] | | | [place] [address] | + + + | Home Phone [...] Providers + +------+ + | Care Research Study Assistant Name | Role | Phone | + +------+ + | Rahul Silva MD | PCP | | + +------+ + Encounter Details +--------+ + + + + | Date | Type | Department | Care Team | Description | +--------+ + + + + | 03/13/ | Orders Only | [facility] | Conversion | | | 2016 | | NEPHROLOGY [place] | Transaction, | | | | | [address] | Provider Unknown | | | | | [address] [place] | | | | | | [address] | (Fax) | | | | | [phone] | | | +--------+ + + + [...] [place] | | | | | | [address] | | | | | | | | +--------+---------+ + + + | 12/06/ | Office | Nephrology | Farrukh Acuna MD | | | 2019 | Visit | | [address] [place] | | | | | | [address] [place] | | | | | | [address] | | | | | | | [...] - 1.030 | EXTERNAL | | | [place] | | | LAB | | + [...]
--- OUTSIDE RECORDS SUMMARY | ~2019-10-10 | XMS | Encounter Summary ---
Demographics + + + | Address | [address] | | | [place] [address] | + + + | Home Phone [...] Providers + +------+ + | Care Welder Fitter Helper Name | Role | Phone | + +------+ + | Rahul Silva MD | PCP | | + +------+ + Encounter Details +--------+ + + + + | Date | Type | Department | Care Team | Description | +--------+ + + + + | 10/08/ | Orders Only | [facility] | Farrukh Acuna MD | | | 2018 | | NEPHROLOGY [place] | [address] [place] | | | | | [address] [place] | [address] [place], [place] | | | | | [address] [place], [place] | [address] | | | | | [address] | | | | | | [phone] | | | +--------+ + + + [...] [place] | | | | | | [id number] | | | | | | | | +--------+---------+ + + + | 12/06/ | Office | Nephrology | Farrukh Acuna MD | | | 2020 | Visit | | [address] [place] | | | | | | [address] [place] | | | | | | [id number] | | | | | | | [...] | | | LAB | | | [facility] | | | | | + + [...]
--- OUTSIDE RECORDS SUMMARY | ~2019-10-10 | XMS | Clinical Summary ---
Demographics + + + | Address | [address] | | | [place] [address] | + + + | Home Phone [...] Team Providers + +------+ + | Care Corporation Officer Name | Role | Phone | [...] | | | | | | | ([facility]), Secondary | | | | | | | | hyperparathyroidism | | | | | | | | ([facility]) | | | | | | [...] by mouth | | 0 | | 11/0 | Disco | | (NORVASC) 10 MG | Daily. | | | | 20 | ntinu | | tablet | | | | | 19 | ed | | | | | | | | (Reor | | | | | | | | dixie) | + + + +---------+------+------+-------+ | gabapentin | Take 400 mg by mouth | | 0 | | 11/0 | Disco | | (NEURONTIN) 400 mg | as needed. | | | | 4/20 | ntinu | | capsule | | | | | 19 | ed | | | | | | | | (Arabella | | | | | | | | ent | | | | | | | | Not | | | | | | | | Takin | | | | | | | | g) | + + + +---------+------+------+-------+ | | Take 1 tablet by | 30 | 0 | 10/ | 11/0 | Disco | | HYDROcodone-acetamin | mouth every 4 hours | tablet | | / | /20 | ntinu | | ophen (NORCO) 5-325 | as needed for Pain. | | | 19 | 19 | ed | | mg per tablet | | | | | | (Arabella | | | | | | | | ent | | | | | | | | Not | | | | | | | | Takin | | | | | | | | g) | + + + +---------+------+------+-------+ | darbepoetin amarjit | Inject 0.3 mLs under | 0.3 mL | 11 | 11/0 | 11/0 | Disco | | (ARANESP, ALBUMIN | the skin Every 30 | | | 5/20 | 5/20 | ntinu | | FREE,) 60 mcg/0.3 mL | days. | | | 19 | 19 | ed | | | | | | | | | | injectionIndications | | | | | | | | : Essential | | | | | | | | hypertension, Iron | | | | | | | | deficiency, CKD | | | | | | [...] 0.3 mL | 11 | 11/0 | 11/0 | Disco | | (ARANESP, ALBUMIN | the skin Every 30 | | | 5/20 | 5/20 | ntinu | | FREE,) 60 mcg/0.3 mL | days. | | | 19 | 19 | ed | | | | | | | [...] automatically from request for surgery | | [id number] | + + + + + | [...] & Plan: Controlled on current | | [id number] yr old male with COPD, current heavy [...] | | | | | | ([facility]) | +--------+ + + + + | [...] | | | | | ([facility]); CKD (chronic | | | | | | kidney disease) | | | | | | stage 5, GFR less | | | | | | than 15 ml/min ([facility]) | +--------+ + + + + | 10/04/ | Office | Nephrology | Farrukh Acuna MD | CKD (chronic kidney | | 2019 | Visit | | | disease) stage 5, | | | | | | GFR less than 15 | | | | | | ml/min ([facility]) | | | | | | (Primary Dx); Anemia | | | | | | of chronic kidney | | | | | | failure, stage 5 | | | | | | ([facility]); Essential | | | | | | hypertension; Iron | | | | | | deficiency; | | | | | | Secondary | | | | | | hyperparathyroidism | | | | | | ([facility]); Type 2 | | | | [...] Abdi | | | | | | Load Dropper | | +--------+ + + + + | 10/01/ | Telephone | Nephrology | Farrukh Acuna MD | | | 2019 | | | | | +--------+ + + + + | 09/28/ | Telephone | Vascular Surgery | Sandy Gomez | Appointment | | 2019 | | | RN | | +--------+ [...] Nephrology | Oly Alvarenga | Labs Only (claritapath | | 2018 | on | | [facility] | 08/24/19) | | | | | Load Dropper | | +--------+ + + + + | 09/13/ | Telephone | Vascular Surgery | Terri Aguilar, | Follow-up | | 2018 | | | Instrument Technician Helper | | +--------+ + + + + [...] | | | | | ml/min ([facility]) | +--------+ + + + + | [...] Abdi | | | | | | Load Dropper | | +--------+ + + + + [...] | | | | | ml/min ([facility]) | | | | | | (Primary [...] | Encounter | | | renal disease) ([facility]) | +--------+ + + + + | [...] Orosco MD | Other (orders ) | 2018 | | | | | +--------+ + + + + | 07/30/ | Telephone | Cardiothoracic | Trisha Conner DNP | Referral Consult | | 2018 | | Surgery | | [...] | | | | | ([facility]); Stage 5 | | | | | | chronic kidney | | | | | | disease not on | | | | | | chronic dialysis | | | | | | ([facility]); Secondary | | | | | | hyperparathyroidism | | | | | | ([facility]); Hypertension, | | | | | | unspecified type | +--------+ + + + + | 07/27/ | Orders Only | Nephrology | Farrukh Acuna MD | Chronic kidney | | 2018 | | | | disease, stage IV | | | | | | (severe) ([facility]); | | | | | | Chronic kidney | | | | | | disease, stage IV | | | | | | (severe) ([facility]); | | [...] dialysis | | | | | | ([facility]) (Primary Dx); | | | | | [...] | | | | stage 5 ([facility]); Iron | | | | | | deficiency | +--------+ + + + + | 07/26/ | Orders Only | Nephrology | Farrukh Acuna MD | Chronic kidney | | 2019 | | | | disease, stage IV | | | | | | (severe) ([facility]); | | | | | | Persistent | | | | | | proteinuria; | | | | | | Secondary | | | | | | hyperparathyroidism | | | | | | of renal origin | | | | | | ([facility]) | +--------+ + + + + | 07/21/ | Documentati | Nephrology | Simon, | Results (07/19/19) | | 2019 | on | | [facility] | | | | | | Load Dropper | | +--------+ + + + + | 07/20/ | Orders Only | Nephrology | Farrukh Acuna MD | Anemia of chronic | | 2018 | | | | renal failure, stage | | | | | | 4 (severe) ([facility]) | | | | | | (Primary Dx); Stage | | | | | | 4 chronic kidney | | | | | | disease ([facility]); | | | | | [...] MD | Stage 4 chronic | | 2018 | | | | kidney disease ([facility]) | | | | | | (Primary Dx); | | | | | | Persistent | | | | | | proteinuria; | | | | | | Secondary | | | | | | hyperparathyroidism | | | | | | ([facility]) | +--------+ + + + + from [...] [place] | | | | | | [address] | | | | | | | | +--------+---------+ + + + | 12/06/ | Office | Nephrology | Farrukh Acuna MD | | | 2019 | Visit | | [address] [facility] | | | | | | [facility] | | | | | | [address] | | | | | | | [...] 3 Months Results External Lab: PTH, Intact (09/30/2019)Only the most recent of 2 results within the time per iod is included. + + + + + [...] + + Iron and Iron Binding Capacity (09/30/2019)Only the most recent of 2 results within the period is included. + +--------+ + + + | Component [...] Blood | + + Renal Function Panel (09/30/2019)Only the most recent of 2 results within the time period i s included. + + + + + + [...] | | | POC | performed at [facility];[address] | [address] | [address];[place], [place] | | | | | | [address] | | | | + + + + + + + + | Specimen | + + | | + + + + + + + | Performing | Address | City/State/Zipcode | Phone Number | | Organization | | | | + + + + + | [facility] | [address] | [place] [address] | [phone] | + + + + + Basic Metabolic Panel (09/07/2019 1:58 PM PDT)Only the most recent of 3 results [...] 12 (L)Comment: GFR <60: | >60 | [facility] | | | GFR | CHRONIC [...] | | | | | | MDRD IDMI traceable | | | | | | equation.Testing | | | | | | performed at [facility], [address] | | | | | | [facility], | | | | | | [place] [address] | | | | + + + + + + + + | Specimen | + + | Blood | + + + + + + + | Performing | Address | City/State/Zipcode | Phone Number | | Organization | | | | + + + + + | [facility] | [address] | [place] [address] | [phone] | + + + + + ECG [...] + + | Performing | Address | City/State/[facility] Hospitalcode | Phone Number | | Organization | | | | + +---------+ + + | [facility] | | | | + +---------+ + + CBC w/ Auto Differential (07/19/2019 [...] +--------+ +---------+--------+ | MEDICARE | MEDICA | [id number] | 07/01/20 | [phone] | | Medica | | | RE | | 05-Pre | 5 | | re | | | PART A | | sent | | | | | | AND B | | | | | | + +--------+ +--------+ +---------+--------+ | [employer] | MODA | [id number] | 07/04/20 | [phone] | | Medica | | MEDICAID HMO | HEALTH | | 19-Pre | 1 | | id | | | MDCD | | sent | | | | | | [place] | | | | | | + +--------+ +--------+ +---------+--------+ | MEDICAID [place] | MEDICA | [id number] | | [phone] | | Medica | | | ID [...] Arturo | al/Fam | | 1940 | [phone] | [place] | | | chula | | | 1 (Home) | [address] | + +--------+ +--------+ + + | Kavon Andujar | Person | Self | [birth year] | [address] | | Arturo | irving/Scott | | 1940 | [phone] | [place] | | | [place] | | | 1 (Home) | [address] | + +--------+ +--------+ + + Advance Directives + + + + + | Type | Date Recorded | Patient | Explanation | | | | Independent Contractor | | + + + + + | Power of | | | | | Bar Useful Or Busser | | | | + + + [...]
--- OUTSIDE RECORDS SUMMARY | ~2019-10-10 | XMS | Encounter Summary ---
Demographics + + + | Address | [address] | | | [place] [address] | + + + | Home Phone [...] [place] | | | | | [address] | | + + + + + Care Team Providers + +------+ + | Care Powerhouse Electrician Name | Role | Phone | [...] | | | amputation | [place], | [place], [place] | | | | | stump, | [place] [address] | [address] | | | | | unspecified | Phone: | Phone: | | | | | | [phone] | [phone] | | | | | | Fax: | Fax: | | | | | | [phone] | [phone] | +--------+--------+ + + + + Encounter Details +--------+---------+ + + + | Date | Type | Department | Care Team | Description | +--------+---------+ + + + | 04/10/ | Office | [facility] Comprehensive | Seven Reilly MD | Low back pain; | | 2009 | Visit | Pain Center at | [address] | Herniated lumbar | | | | [facility] | [place], [place] | intervertebral disc; | | | | [address] | [address] | Stump pain (HCC) | | | | Mailcode: [facility] | [phone] | | | | | [facility] | | | | | | and Healing, | | | | | | Building | | | | | | Floor [place], [place] | | | | | | [address] | | | | | | [phone] | | | +--------+---------+ + + + [...] the trainee's note. Seven Reilly MD, DABA, [facility] [place] [facility] P DTMariano Martinez MD - 04/10/2010 12:30 PM PDT [facility] Office Visit 04/10/2010 Kavon Andujar; ; : 1940 Mr. Andujar was referred for pain management consultation by RAHUL COYNE MD [address] [place] [address], [place] [address] Reason for visit: Chief Complaint Patient presents [...] pain. He has been referred to the [facility] for consultation regarding [...] that the most effective treatments include: medications. PROFESSOR OF ENVIRONMENTAL ENGINEERING Brief Pain Inventory: (ten= worst possible pain [...] above. As part of today's visit the [facility] new patient questionnaire [...] you expect from your visits to the [facility] ? Don't know [...] and summary of old medical records (source: [employer]), as summarized in the body of the [...] generic medication. Follow up: none scheduled at [facility] [place]. Mariano Martinez MD Pain Fellow [facility] [place] [facility] documented in this encounter Plan of [...]
--- OUTSIDE RECORDS SUMMARY | ~2019-10-10 | XMS | Encounter Summary ---
Demographics + + + | Address | [address] | | | [place] [address] | + + + | Home Phone | | + + + | Preferred Language | Unknown | + + + | Marital Status | Single | + + + | Hindu Affiliation | PRO | + + + | Race | White | + + + | Ethnic Group | Not or | + + + Author + + + | Author | [facility] | + + + | Organization | [facility] | + + + | Address | Unknown | + + + | Phone | Unavailable | + + + Support + + + + + | Name | Relationship | Address | Phone | + + + + + | Darci Andujar | VALERIE | [place] | | | | | [address] | | + + + + + Care Team Providers + +------+ + | Care Melt Room Operator Name | Role | Phone | + +------+ + PCP | Unavailable | + +------+ + Encounter Details +--------+ + + + + | Date | Type | Department | Care Team | Description | +--------+ + + + + | 04/06/ | Procedure - | Digestive Health | Record, Operation | Operative Report | | 1997 | | [place] [facility] [address] | | | | | Transcribed | Ruben Linares | | | | | | Mailcode: [place] | | | | | | [facility] and | | | | | | Healing, [address] | | | | | | [facility] [place] | | | | | | [address] | | | | | | [phone] | | | +--------+ + + + [...] + + | 04/06/1998 12:00 AM PDT [place] | | [facility] | | [address] [place], [place] [address] | | [facility] | | | | OPERATION RECORD | | | | Med Rec No.: [id number] Date: 04/06/98 | | | | Name: Con Kavon Morris | | | | | | ATTENDING SURGEON: | | Galo Arora M.D. | | Jewel Lathe Operator, | | Division of Plastic & | | Reconstructive Surgery | | ADMINISTRATOR OF HOME HEALTH(S): | | Barry Fofana M.D. | | [...] | | Galo Arora M.D. | | Jewel Lathe Operator, | | Division of Plastic & | | Reconstructive Surgery | | WOJCIECH/pita | | | | P | | C: 05/12/98 lv | | cc: | | | + + documented in this encounter Visit Diagnoses Not on filedocumented in this encounter"
--- OUTSIDE RECORDS SUMMARY | ~2019-10-10 | XMS | Encounter Summary ---
Demographics + + + | Address | [address] | | | [place] [address] | + + + | Home Phone [...] Providers + +------+ + | Care Automotive Refinisher Name | Role | Phone | + [...] N Young | | | | | [place], [place] | [place], [place] | | | | | [address] | [address] | | | | | [phone] | [phone] | | | | | | | [...] [place] | | | | | | [address] | | | | | | | | +--------+---------+ + + + | 12/06/ | Office | Nephrology | Farrukh Acuna MD | | | 2019 | Visit | | [address] [facility] | | | | | | [address] [place] | | | | | | [address] | | | | | | | [...]
--- OUTSIDE RECORDS SUMMARY | ~2019-10-10 | XMS | Encounter Summary ---
Demographics + + + | Address | [address] | | | [place] [address] | + + + | Home Phone [...] Providers + +------+ + | Care Plastic Design Applier Name | Role | Phone | + [...] N Young | | | | | [place], [place] | [place], [place] | | | | | [address] | [address] | | | | | [phone] | [phone] | | | | | | | [...] [place] | | | | | | [address] | | | | | | | | +--------+---------+ + + + | 12/06/ | Office | Nephrology | Farrukh Acuna MD | | | 2019 | Visit | | [address] [facility] | | | | | | [address] [place] | | | | | | [address] | | | | | | | [...]
--- OUTSIDE RECORDS SUMMARY | ~2019-10-10 | XMS | Encounter Summary ---
Demographics + + + | Address | [address] | | | [place] [address] | + + + | Home Phone [...] Providers + +------+ + | Care Environmental Communications Specialist Name | Role | Phone | + +------+ + | Rahul Silva MD | PCP | | + +------+ + Encounter Details +--------+ + + + + | Date | Type | Department | Care Team | Description | +--------+ + + + + | 01/13/ | Orders Only | [facility] | Conversion | | | 2016 | | NEPHROLOGY [place] | Transaction, | | | | | [address] | Provider Unknown | | | | | [address] [place] | | | | | | [address] | (Fax) | | | | | [phone] | | | +--------+ + + + [...] [place] | | | | | | [address] | | | | | | | | +--------+---------+ + + + | 12/06/ | Office | Nephrology | Farrukh Acuna MD | | | 2019 | Visit | | [address] [place] | | | | | | [address] [place] | | | | | | [address] | | | | | | | [...] - 1.030 | EXTERNAL | | | [place] | | | LAB | | + [...] + + + | [facility] | 4.17 (A) | 4.3 - 5.7 [...] | | | LAB | | | [place] | | | | | + + [...]
--- OUTSIDE RECORDS SUMMARY | ~2019-10-10 | XMS | Encounter Summary ---
Demographics + + + | Address | [address] | | | [place] [address] | + + + | Home Phone [...] Team Providers + +------+ + | Care Clear Coat Sprayer Name | Role | Phone | [...] N Young | | | | | [place], [place] | [place], [place] | | | | | [address] | [address] | | | | | [phone] | [phone] | | | | | | | [...] [place] | | | | | | [address] | | | | | | | | +--------+---------+ + + + | 12/06/ | Office | Nephrology | Farrukh Acuna MD | | | 2019 | Visit | | [address] [facility] | | | | | | [address] [place] | | | | | | [address] | | | | | | | [...]
--- OUTSIDE RECORDS SUMMARY | ~2019-10-10 | XMS | Encounter Summary ---
Demographics + + + | Address | [address] | | | [place] [address] | + + + | Home Phone [...] Team Providers + +------+ + | Care Chimney Supervisor Brick Name | Role | Phone | + +------+ + | Rahul Silva MD | PCP | | + +------+ + Encounter Details +--------+ + + + + | Date | Type | Department | Care Team | Description | +--------+ + + + + | 07/30/ | Orders Only | [facility] | Conversion | | | 2016 | | NEPRHOLOGY [place] | Transaction, | | | | | [address] | Provider Unknown | | | | | [address] [place], [place] | [phone] | | | | | [address] | (Fax) | | | | | [phone] | | | +--------+ + + + [...] [place] | | | | | | [address] | | | | | | | | +--------+---------+ + + + | 12/06/ | Office | Nephrology | Farrukh Acuna MD | | | 2019 | Visit | | [address] [place] | | | | | | [address] [place] | | | | | | [address] | | | | | | | [...]
--- OUTSIDE RECORDS SUMMARY | ~2019-10-10 | XMS | Encounter Summary ---
Demographics + + + | Address | [address] | | | [place] [address] | + + + | Home Phone [...] Team Providers + +------+ + | Care Cover Mat Machine Operator Name | Role | Phone [...] | [address] | [address] [facility] | | | | | [place], [place] | [address] [place] | | | | | [address] | [address] | | | | | [phone] | | | +--------+ + + + [...] [place] | | | | | | [address] | | | | | | | | +--------+---------+ + + + | 12/06/ | Office | Nephrology | Farrukh Acuna MD | | | 2019 | Visit | | [address] [place] | | | | | | [address] [place] | | | | | | [address] | | | | | | | [...]
--- OUTSIDE RECORDS SUMMARY | ~2019-10-10 | XMS | Encounter Summary ---
Demographics + + + | Address | [address] | | | [place] [address] | + + + | Home Phone [...] Providers + +------+ + | Care Industrial Cook Name | Role | Phone | + +------+ + | Rahul Silva MD | PCP | | + +------+ + Encounter Details +--------+ + + + + | Date | Type | Department | Care Team | Description | +--------+ + + + + | 10/10/ | Orders Only | [facility] | Farrukh Acuna MD | | | 2013 | | NEPHROLOGY [place] | [address] [place] | | | | | [address] [place] | [address] [place], [place] | | | | | [address] [place], [place] | [address] | | | | | [address] | | | | | | [phone] | | | +--------+ + + + [...] [place] | | | | | | [address] | | | | | | | | +--------+---------+ + + + | 12/06/ | Office | Nephrology | Farrukh Acuna MD | | | 2019 | Visit | | [address] [place] | | | | | | [address] [place] | | | | | | [address] | | | | | | | [...] | | | LAB | | | [place] | | | | | + + [...]
--- OUTSIDE RECORDS SUMMARY | ~2019-10-10 | XMS | Encounter Summary ---
Demographics + + + | Address | [address] | | | [place] [address] | + + + | Home Phone [...] Providers + +------+ + | Care Principal Technical Specialist Name | Role | Phone | + +------+ + | Rahul Silva MD | PCP | | + +------+ + Encounter Details +--------+ + + + + | Date | Type | Department | Care Team | Description | +--------+ + + + + | 07/18/ | Orders Only | [facility] | Conversion | | | 2015 | | NEPHROLOGY [place] | Transaction, | | | | | [address] [facility] | Provider Unknown | | | | | [place] | [phone] | | | | | [address] | | | | | | [phone] | | | +--------+ + + + [...] [place] | | | | | | [address] | | | | | | | | +--------+---------+ + + + | 12/06/ | Office | Nephrology | Farrukh Acuna MD | | | 2019 | Visit | | [address] [facility] | | | | | | [address] [place] | | | | | | [address] | | | | | | | [...] - 1.030 | EXTERNAL | | | [place] | | | LAB | | + [...] | | | LAB | | | [place] | | | | | + [...]
--- OUTSIDE RECORDS SUMMARY | ~2019-10-10 | XMS | Encounter Summary ---
Demographics + + + | Address | [address] | | | [place] [address] | + + + | Home Phone [...] Team Providers + +------+ + | Care Tappet Adjuster Name | Role | Phone | [...] E | | | | | | ([facility]) | [place] | | | | | | Procedures | [address] | | | | | | VAS Arm | Phone: | | | | | | Bilateral | [phone] | | | | | | Mapping For | Fax: | | | | | | Dialysis | [phone] | | +--------+--------+ + + + + Encounter Details +--------+ + + + + | Date | Type | Department | Care Team | Description | +--------+ + + + + | 08/20/ | Hospital | [facility] | Trisha Conner, DNP | 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 | VASCULAR SURGERY | [address] | renal disease) ([facility]) | | | | ULTRASOUND [address] | [place] | | | | | [address] [place] [address] | [address] | | | | | [place] | | | | | | [address] | | | | | | [phone] | | | +--------+ + + + [...] | | | | | | ([facility]), Secondary | | | | | | | hyperparathyroidism | | | | | | | ([facility]) | | | | | [...] Inject 25 Units | | 0 | 05/19/ | | | 100 UNIT/ML | under [...] [place] | | | | | | [id number] | | | | | | | | +--------+---------+ + + + | 12/06/ | Office | Nephrology | Farrukh Acuna MD | | | 2019 | Visit | | [address] | | | | | | [address] [place] | | | | | | [address] [...]
--- OUTSIDE RECORDS SUMMARY | ~2019-10-10 | XMS | Encounter Summary ---
Demographics + + + | Address | [address] | | | [place] [address] | + + + | Home Phone [...] Team Providers + +------+ + | Care Admitting Coordinator Name | Role | Phone | [...] [address] Young | | | | | [place], [place] | [place], [place] | | | | | [address] | [address] | | | | | [phone] | | | | | | | [...] [place] | | | | | | [address] | | | | | | | | +--------+---------+ + + + | 12/06/ | Office | Nephrology | Farrukh Acuna MD | | | 2019 | Visit | | [address] [facility] | | | | | | [address] [place] | | | | | | [address] | | | | | | | [...]
--- OUTSIDE RECORDS SUMMARY | ~2019-10-10 | XMS | Encounter Summary ---
Demographics + + + | Address | [address] | | | [place] [address] | + + + | Home Phone [...] Team Providers + +------+ + | Care Catalyst Concentration Operator Name | Role | Phone | [...] N Young | | | | | [place], [place] | [place], [place] | | | | | [address] | [address] | | | | | [phone] | [phone] | | | | | | | [...] [place] | | | | | | [address] | | | | | | | | +--------+---------+ + + + | 12/06/ | Office | Nephrology | Farrukh Acuna MD | | | 2019 | Visit | | [address] [facility] | | | | | | [address] [place] | | | | | | [address] | | | | | | | [...]
--- OUTSIDE RECORDS SUMMARY | ~2019-10-10 | XMS | Encounter Summary ---
Demographics + + + | Address | [address] | | | [place] [address] | + + + | Home Phone [...] Providers + +------+ + | Care Computational Chemist Name | Role | Phone | + +------+ + | Rahul Silva MD | PCP | | + +------+ + Encounter Details +--------+ + + + + | Date | Type | Department | Care Team | Description | +--------+ + + + + | 10/05/ | Orders Only | [facility] | Farrukh Acuna MD | Essential | | 2019 | | NEPHROLOGY [place] | [address] [place] | hypertension | | | | [address] | [address] [facility] [place] | (Primary Dx); Iron | | | | [address] | [address] | deficiency; | | | | [place], [place] | | Secondary | | | | [address] | | hyperparathyroidism | | | | [phone] | | (HCC); CKD (chronic | | | | | | kidney disease) | | | | | | stage 5, GFR less | | | | | | than 15 ml/min ([facility]) | +--------+ + + [...] [place] | | | | | | [address] | | | | | | | | +--------+---------+ + + + | 12/06/ | Office | Nephrology | Farrukh Acuna MD | | | 2019 | Visit | | [address] [facility] [address] | | | | | | 160 [place], [place] | | | | | | [address] | | | | | | | [...] | | | | | | ml/min ([facility]) | | + +------+--------+ [...] | | | | | | ml/min ([facility]) | | + +------+--------+ + + | Parathyroid Hormone, | Lab | Routin | Essential | Expected: | | Intact | | e | hypertension Iron | 12/05/2019, Expires: | | | | | deficiency | 10/05/2020 | | | | | Secondary | | | | | | hyperparathyroidism | | | | | | ([facility]) CKD (chronic | | | | | | kidney disease) | | | | | | stage 5, GFR less | | | | | | than 15 ml/min ([facility]) | | + +------+--------+ [...]
--- OUTSIDE RECORDS SUMMARY | ~2019-10-10 | XMS | Encounter Summary ---
Demographics + + + | Address | [address] | | | [place] [address] | + + + | Home Phone [...] Team Providers + +------+ + | Care Hazmat Cdl Driver Name | Role | Phone | + +------+ + | Rahul Silva MD | PCP | | + +------+ + Encounter Details +--------+ + + + + | Date | Type | Department | Care Team | Description | +--------+ + + + + | 11/27/ | Orders Only | [facility] | Conversion | | | 2017 | | NEPHROLOGY [place] | Transaction, | | | | | [address] | Provider Unknown | | | | | [address] [place] | | | | | | [address] | (Fax) | | | | | [phone] | | | +--------+ + + + [...] 2018 | Visit | | [address] | | | | | | [place] | | | | | | [address] | | | | | | | | +--------+---------+ + + + | 12/06/ | Office | Nephrology | Farrukh Acuna MD | | | 2019 | Visit | | [address] | | | | | | [address] [place] | | | | | | [address] | | | | | | | [...] | | | LAB | | | VENEZUELAN | | | | | + + [...]
--- OUTSIDE RECORDS SUMMARY | ~2019-10-10 | XMS | Encounter Summary ---
Demographics + + + | Address | [address] | | | [place] [address] | + + + | Home Phone [...] Providers + +------+ + | Care Electrician Maintenance Name | Role | Phone | [...] [address] | | | | | [place], [place] | [place], [place] | | | | | [address] | [address] | | | | | [phone] | [phone] | | | | | | | [...] [place] | | | | | | [address] | | | | | | | | +--------+---------+ + + + | 12/06/ | Office | Nephrology | Farrukh Acuna MD | | | 2019 | Visit | | [facility] [facility] | | | | | | [address] [place] | | | | | | [address] | | | | | | | [...]
--- OUTSIDE RECORDS SUMMARY | ~2019-10-10 | XMS | Encounter Summary ---
Demographics + + + | Address | [address] | | | [place] [address] | + + + | Home Phone [...] Providers + +------+ + | Care Process Planner Name | Role | Phone | + +------+ + | Rahul Silva MD | PCP | | + +------+ + Encounter Details +--------+ + + + + | Date | Type | Department | Care Team | Description | +--------+ + + + + | 10/03/ | Orders Only | [facility] | Collin Mirza, | | | 2015 | | NEPHROLOGY [place] | STUDIO POTTER [address] | | | | | [address] [place] | [address] | | | | | [address] [place], [place] | [facility] | | | | | [address] | [address] | | | | | [phone] | [phone] | | | | | | | [...] [place] | | | | | | [address] | | | | | | | | +--------+---------+ + + + | 12/06/ | Office | Nephrology | Farrukh Acuna MD | | | 2019 | Visit | | [address] [facility] | | | | | | [address] [place] | | | | | | [address] | | | | | | | [...]
--- OUTSIDE RECORDS SUMMARY | ~2019-10-10 | XMS | Clinical Summary ---
Demographics + + + | Address | [address] | | | [place] [address] | + + + | Home Phone [...] Author + + + | Author | [facility] | + + + | Organization | [facility] | + + + | Address | Unknown | + + + | Phone | Unavailable | + + + Support + + + + + | Name | Relationship | Address | Phone | + + + + + | Darci Andujar | VALERIE | [place] | | | | | [address] | | + + + + + Care Team Providers + +------+ + | Care Psychosocial Rehabilitation Counselor Name | Role | Phone | + +------+ + | Rahul Silva MD | PCP | | + +------+ + Source Comments [place] is fully live on both [facility] Ambulatory and [facility] InPatient.[facility] Allergies No Known Allergies Medications [...]
--- OUTSIDE RECORDS SUMMARY | ~2019-10-10 | XMS | Encounter Summary ---
Demographics + + + | Address | [address] | | | [place] [address] | + + + | Home Phone [...] [place] | | | | | [address] | | + + + + + Care Team Providers + +------+ + | Care Med Dir Name | Role | Phone | + [...] [id number] | | | | | | [place], [place] | | | | | | [address] | | | | | | [phone] | | | +--------+ + + + [...] + + + + | [facility] | [address] | [place] [address] | | | PATHOLOGY | [address] [...] + + + + | [facility] | [address] | [place] [address] | | | PATHOLOGY | [address] | | | + + + + + documented in this encounter Visit Diagnoses Not on filedocumented in this encounter"
--- OUTSIDE RECORDS SUMMARY | ~2019-10-10 | XMS | Encounter Summary ---
Demographics + + + | Address | [address] | | | [place] [address] | + + + | Home Phone [...] Team Providers + +------+ + | Care Router Tender Name | Role | Phone | [...] + + | 09/07/ | Telephone | [facility] | Sandy Gomez, | Surgery Appointment | | 2019 | | VASCULAR SURGERY | RN | | | | | [address] | | | | | | [place] | | | | | | [address] | | | | | | [phone] | | | +--------+ + + + [...] [place] | | | | | | [address] | | | | | | | | +--------+---------+ + + + | 12/06/ | Office | Nephrology | Farrukh Acuna MD | | | 2020 | Visit | | [address] [facility] | | | | | | [address] [place] | | | | | | [address] | | | | | | | | +--------+---------+ + + + documented as of this encounter Visit Diagnoses Not on filedocumented in this encounter"
--- OUTSIDE RECORDS SUMMARY | ~2019-10-10 | XMS | Encounter Summary ---
Demographics + + + | Address | [address] | | | [place] [address] | + + + | Home Phone [...] Providers + +------+ + | Care Assembler Insulator Name | Role | Phone | + +------+ + | Rahul Silva MD | PCP | | + +------+ + Encounter Details +--------+ + + + + | Date | Type | Department | Care Team | Description | +--------+ + + + + | 12/19/ | Orders Only | [facility] | Conversion | | | 2016 | | NEPHROLOGY [place] | Transaction, | | | | | [address] | Provider Unknown | | | | | [address] [place] | | | | | | [address] | (Fax) | | | | | [phone] | | | +--------+ + + + [...] [place] | | | | | | [address] | | | | | | | | +--------+---------+ + + + | 12/06/ | Office | Nephrology | Farrukh Acuna MD | | | 2019 | Visit | | [address] | | | | | | [address] [place] | | | | | | [address] | | | | | | | [...]
--- OUTSIDE RECORDS SUMMARY | ~2019-10-10 | XMS | Encounter Summary ---
Demographics + + + | Address | [address] | | | [place] [address] | + + + | Home Phone [...] Team Providers + +------+ + | Care Parking Garage Manager Name | Role | Phone | [...] [address] | | | | | [place], [place] | [place], [place] | | | | | [address] | [address] | | | | | [phone] | [phone] | | | | | | | [...] [place] | | | | | | [address] | | | | | | | | +--------+---------+ + + + | 12/06/ | Office | Nephrology | Farrukh Acuna MD | | | 2019 | Visit | | [address] [facility] | | | | | | [address] [place] | | | | | | [address] | | | | | | | [...]
--- OUTSIDE RECORDS SUMMARY | ~2019-10-10 | XMS | Encounter Summary ---
Demographics + + + | Address | [address] | | | [place] [address] | + + + | Home Phone [...] Team Providers + +------+ + | Care Herbologist Name | Role | Phone | + [...] + + | 08/07/ | Telephone | [facility] | Steven Tobar MD | Post-op Question | | 2016 | | OTOLARYNGOLOGY [address] | [address] [place] | (ear) | | | | [address] | [address] [place], | | | | | [place], [place] | [place] [address] | | | | | [address] | [phone] | | | | | [phone] | | | +--------+ + + + [...] | 2018 | Visit | | [address] | | | | | | [place] | | | | | | [id number] | | | | | | | | +--------+---------+ + + + | 12/06/ | Office | Nephrology | Farrukh Acuna MD | | | 2019 | Visit | | [address] [facility] | | | | | | [address] [place] | | | | | | [address] | | | | | | | | +--------+---------+ + + + documented as of this encounter Visit Diagnoses Not on filedocumented in this encounter"
--- OUTSIDE RECORDS SUMMARY | ~2019-10-10 | XMS | Encounter Summary ---
Demographics + + + | Address | [address] | | | [place] [address] | + + + | Home Phone [...] [place] | | | | | [address] | | + + + + + Care Team Providers + +------+ + | Care Lace Mender Name | Role | Phone | [...] Note | | 2000 | Visit-Trans | [address] [facility] | [phone] | | | | [address] | [address] | | | | | | [place], [place] | | | | | | [address] | | | +--------+ + + + [...] recommend that he see one of our freight rate specialist for further evaluation, and he did appear interested in doing that. 2. Referral to Dr. Willis in Orthopedics. Yuriy Huang M.D. director of kids HOSEAL / [id number] / [id number] / [id number] / [id number] C: 01/23/2001 nw documented in this encounter Plan of Treatment Not on filedocumented as of this encounter Visit Diagnoses Not on filedocumented in this encounter"
--- OUTSIDE RECORDS SUMMARY | ~2019-10-10 | XMS | Encounter Summary ---
Demographics + + + | Address | [address] | | | [place] [address] | + + + | Home Phone [...] [place] | | | | | [address] | | + + + + + Care Team Providers + +------+ + | Care Cycle Director Name | Role | Phone | [...] | | | | | | [place], | | | | | | [place] [address] | | | | | | [phone] | | | +--------+ + + + [...] as of this encounter Discharge Summaries Interface, Upholstery Technician In - 12/22/2006 3:12 AM PST [address] [address] [facility] MEDICAL SUMMARY OF HOSPITALIZATION Med Rec No.: [id number] Admission Date: 04/06/98 Name: Kavon Andujar Discharge Date: 04/08/98 STAFF PHYSICIAN: Galo Arora M.D. Air Drill Operator, Division of Plastic & Reconstructive Surgery [...] M.D. Resident, Plastic Surgery Galo Arora M.D. Air Drill Operator, Division of Plastic & Reconstructive Surgery QIANA/charo P cc: GRIFFIN ASHER MD [address] [facility] [place] [address] documented in this encounter Plan of Treatment Not on filedocumented as of this encounter Visit Diagnoses Not on filedocumented in this encounter"
--- OUTSIDE RECORDS SUMMARY | ~2019-10-10 | XMS | Encounter Summary ---
Demographics + + + | Address | [address] | | | [place] [address] | + + + | Home Phone [...] Team Providers + +------+ + | Care Global Technical Writer Name | Role | Phone | + +------+ + | Rahul Silva MD | PCP | | + +------+ + Encounter Details +--------+ + + + + | Date | Type | Department | Care Team | Description | +--------+ + + + + | 07/17/ | Orders Only | [facility] | Conversion | | | 2016 | | NEPHROLOGY [place] | Transaction, | | | | | [address] | Provider Unknown | | | | | [address] [place] | | | | | | [address] | (Fax) | | | | | [phone] | | | +--------+ + + + [...] [place] | | | | | | [address] | | | | | | | | +--------+---------+ + + + | 12/06/ | Office | Nephrology | Farrukh Acuna MD | | | 2019 | Visit | | [address] | | | | | | [address] [place] | | | | | | [address] | | | | | | | [...]
--- OUTSIDE RECORDS SUMMARY | ~2019-10-10 | XMS | Encounter Summary ---
Demographics + + + | Address | [address] | | | [place] [address] | + + + | Home Phone [...] Team Providers + +------+ + | Care Mailing Section Clerk Name | Role | Phone | [...] | | | 2018 | | NEPRHOLOGY [place] | [address] | | | | | [address] [place] | [address] [place], [place] | | | | | [address] [place], [place] | [address] | | | | | [address] | | | | | | [phone] | | | +--------+ + + + [...] [place] | | | | | | [address] | | | | | | | | +--------+---------+ + + + | 12/06/ | Office | Nephrology | Farrukh Acuna MD | | | 2020 | Visit | | [address] [facility] [address] | | | | | | [address] [place] | | | | | | [address] | | | | | | | [...]
--- OUTSIDE RECORDS SUMMARY | ~2019-10-10 | XMS | Encounter Summary ---
Demographics + + + | Address | [address] | | | [place] [address] | + + + | Home Phone [...] [place] | | | | | [address] | | + + + + + Care Team Providers + +------+ + | Care Manager Strategy & Account Name | Role | Phone | + [...] as of this encounter Progress Notes Interface, Calibrator Barometers In - 11/10/2006 2:27 AM PSTCLINIC DATE: [...] he embarked on this. Galo Arora M.D. Elementary Reading Tutor, Plastic and Reconstructive Surgery WOJCIECH / [id number] / [id number] / [id number] cc: Nelson Melara M.D. Anesthesiology. [facility]. [id number] signed by Interface, Calibrator Barometers In at 11/10/2006 2:27 AM PSTdocume nted in this encounter Plan of Treatment Not on filedocumented as of this encounter Visit Diagnoses Not on filedocumented in this encounter"
--- OUTSIDE RECORDS SUMMARY | ~2019-10-10 | XMS | Encounter Summary ---
Demographics + + + | Address | [address] | | | [place] [address] | + + + | Home Phone [...] Providers + +------+ + | Care Tax Associate Name | Role | Phone | + +------+ + | Rahul Silva MD | PCP | | + +------+ + Encounter Details +--------+ + + + + | Date | Type | Department | Care Team | Description | +--------+ + + + + | 05/27/ | Orders Only | [facility] | Conversion | | | 2019 | | NEPHROLOGY [place] | Transaction, | | | | | [address] | Provider Unknown | | | | | [address] [place] [address] | | | | | | [address] | (Fax) | | | | | [phone] | | | +--------+ + + + [...] [place] | | | | | | [address] | | | | | | | | +--------+---------+ + + + | 12/06/ | Office | Nephrology | Farrukh Acuna MD | | | 2019 | Visit | | [address] | | | | | | [address] [place] | | | | | | [address] | | | | | | | [...]
--- OUTSIDE RECORDS SUMMARY | ~2019-10-10 | XMS | Encounter Summary ---
Demographics + + + | Address | [address] | | | [place] [address] | + + + | Home Phone [...] + | 06/23/ | Orders Only | [facility] | Farrukh Acuna MD | | | 2018 | | NEPHROLOGY [place] | [address] [place] | | | | | [address] [place] | [address] [place], [place] | | | | | [address] [place], [place] | [address] | | | | | [address] | | | | | | [phone] | | | +--------+ + + + [...] [place] | | | | | | [address] | | | | | | | | +--------+---------+ + + + | 12/06/ | Office | Nephrology | Farrukh Acuna MD | | | 2020 | Visit | | [address] | | | | | | [address] [place] | | | | | | [address] | | | | | | | [...]
--- OUTSIDE RECORDS SUMMARY | ~2019-10-10 | XMS | Encounter Summary ---
Demographics + + + | Address | [address] | | | [place] [address] | + + + | Home Phone [...] Team Providers + +------+ + | Care Fiberglass Tube Molder Name | Role | Phone | [...] [address] | | | | | [place], [place] | [place], [place] | | | | | [address] | [address] | | | | | [phone] | [phone] | | | | | | | [...] [place] | | | | | | [address] | | | | | | | | +--------+---------+ + + + | 12/06/ | Office | Nephrology | Farrukh Acuna MD | | | 2019 | Visit | | [address] [facility] | | | | | | [address] [place] | | | | | | [address] | | | | | | | [...]
--- OUTSIDE RECORDS SUMMARY | ~2019-10-10 | XMS | Encounter Summary ---
Demographics + + + | Address | [address] | | | [place] [address] | + + + | Home Phone [...] [place] | | | | | [address] | | + + + + + Care Team Providers + +------+ + | Care Supervisor Coating Name | Role | Phone | + [...] Rd | | | | | | [place], [place] | | | | | | [address] | | | +--------+ + + + [...] as of this encounter Progress Notes Interface, Operational Review Sergeant In - 03/27/2007 3:12 AM PDT CLINIC [...] an abnormal AC-BE, he was referred to [facility] for colonoscopy. MEDICATIONS: 1. Vicodin. [...] Dr. Valles who is his physician in [place], [place]. He has made me aware that [...] M.D. Fellow, Gastroenterology SHANEL/stephon cc: ARIA [facility] [place] documented in this encounter Plan of Treatment Not on filedocumented as of this encounter Visit Diagnoses Not on filedocumented in this encounter"
--- OUTSIDE RECORDS SUMMARY | ~2019-10-10 | XMS | Encounter Summary ---
Demographics + + + | Address | [address] | | | [place] [address] | + + + | Home Phone [...] [place] | | | | | [address] | | + + + + + Care Team Providers + +------+ + | Care Director Child Abuse Therapy Name | Role | Phone | + [...] Garcia | | | | | | Rnee Mailcode: [id number] | | | | | | [place], [place] | | | | | | [address] | | | | | | [phone] | | | +--------+ + + + [...] | + + + + + | [facility] | [address] | [place] [address] | | | PATHOLOGY | [address] [...] | + + + + + | [facility] | [address] | [place] [address] | | | PATHOLOGY | [address] [...] | + + + + + | [facility] | [address] | [place] [address] | | | PATHOLOGY | [address] [...] | + + + + + | [facility] | [address] | [place] [address] | | | PATHOLOGY | [address] | | | + + + + + documented in this encounter Visit Diagnoses Not on filedocumented in this encounter
--- OUTSIDE RECORDS SUMMARY | ~2019-10-10 | XMS | Encounter Summary ---
Demographics + + + | Address | [address] | | | [place] [address] | + + + | Home Phone [...] Providers + +------+ + | Care Coal Weigher Name | Role | Phone | + [...] [address] | | | | | [place], [place] | [place], [place] | | | | | [address] | [address] | | | | | [phone] | [phone] | | | | | | | [...] [place] | | | | | | [address] | | | | | | | | +--------+---------+ + + + | 12/06/ | Office | Nephrology | Farrukh Acuna MD | | | 2019 | Visit | | [address] [facility] | | | | | | [address] [address] | | | | | | [address] | | | | | | | [...]
--- OUTSIDE RECORDS SUMMARY | ~2019-10-10 | XMS | Encounter Summary ---
Demographics + + + | Address | [address] | | | [place] [address] | + + + | Home Phone [...] Providers + +------+ + | Care Manager Search Engine Name | Role | Phone | + +------+ + | Rahul Silva MD | PCP | | + +------+ + Encounter Details +--------+ + + + + | Date | Type | Department | Care Team | Description | +--------+ + + + + | 02/12/ | Orders Only | [facility] | Conversion | | | 2018 | | NEPHROLOGY [place] | Transaction, | | | | | [address] | Provider Unknown | | | | | [address] [place] [address] | | | | | | [address] | (Fax) | | | | | [phone] | | | +--------+ + + + [...] [place] | | | | | | [address] | | | | | | | | +--------+---------+ + + + | 12/06/ | Office | Nephrology | Farrukh Acuna MD | | | 2019 | Visit | | [address] | | | | | | [address] [place] | | | | | | [address] | | | | | | | [...]
--- OUTSIDE RECORDS SUMMARY | ~2019-10-10 | XMS | Encounter Summary ---
Demographics + + + | Address | [address] | | | [place] [address] | + + + | Home Phone [...] Team Providers + +------+ + | Care Science Technicians Name | Role | Phone | + [...] | | | 2018 | | NEPRHOLOGY [place] | [address] | | | | | [address] | 160 [place], [place] | | | | | 101 [place], [place] | [address] | | | | | [address] | | | | | | [phone] | | | +--------+ + + + [...] [place] | | | | | | [address] | | | | | | | | +--------+---------+ + + + | 12/06/ | Office | Nephrology | Farrukh Acuna MD | | | 2020 | Visit | | [address] [facility] [address] | | | | | | [address] [place] | | | | | | [address] | | | | | | | [...] | | | LAB | | | [place] | | | | | + + [...]
--- OUTSIDE RECORDS SUMMARY | ~2019-10-10 | XMS | Clinical Summary ---
Demographics + + + | Address | [address] | | | [place] [address] | + + + | Home Phone | | + + + | Preferred Language | Unknown | + + + | Marital Status | | + + + | Quaker Affiliation | 1077 | + + + | Race | Unknown | + + + | Ethnic Group | Unknown | + + + Author + + + | Author | [facility] (Historical as of | | | 07-17-19) | + + + | Organization | [facility] (Historical as of | | | 07-17-19) [...] Providers + +------+ + | Care Property Officer Name | Role | Phone | [...] | | | | | 4 (severe) ([facility]), | | | | | | [...] Last Assessment & Plan: Controlled on current [id number] yr | | old male with COPD, [...] + + | 07/16/ | Telephone | | Alfred, | | [...] +------+-------+ + | MEDICARE | MEDICA | [id number] | | | [address] | | | RE | | | | [place] [address] | | | IP-OP | | | | | + +--------+ +------+-------+ + | MEDICAID | EASTER | [id number] | | | [address] | | | N | | | | [place], [place] | | | [place] | | | | [address] | | | CORE DRILLER HELPER | | | | | + +--------+ [...] | Self | [birth year] | Home: | [address] [place] [address] | | | al/Fam | | [phone] | [phone] | [place] | | | chula | | | [address]11 | [address] | + +--------+ +--------+ + +
--- OUTSIDE RECORDS SUMMARY | ~2019-10-10 | XMS | Encounter Summary ---
Demographics + + + | Address | [address] | | | [place] [address] | + + + | Home Phone [...] Team Providers + +------+ + | Care Color Grinder Name | Role | Phone | + +------+ + | Rahul Silva MD | PCP | | + +------+ + Encounter Details +--------+ + + + + | Date | Type | Department | Care Team | Description | +--------+ + + + + | 11/10/ | Orders Only | [facility] | Conversion | | | 2017 | | NEPHROLOGY [facility] | Transaction, | | | | | [address] | Provider Unknown | | | | | [address] [place] | | | | | | [phone] | (Fax) | | | | | [phone] | | | +--------+ + + + [...] [place] | | | | | | [id number] | | | | | | | | +--------+---------+ + + + | 12/06/ | Office | Nephrology | Farrukh Acuna MD | | | 2019 | Visit | | [address] [place] | | | | | | [address] [place] | | | | | | [id number] | | | | | | | [...]
--- OUTSIDE RECORDS SUMMARY | ~2019-10-10 | XMS | Encounter Summary ---
Demographics + + + | Address | [address] | | | [place] [address] | + + + | Home Phone [...] Team Providers + +------+ + | Care Laser Systems Engineer Name | Role | Phone | [...] + + | 09/17/ | Documentati | [facility] | Oly Alvarenga | Labs Only ([facility] | | 2019 | on | NEPRHOLOGY [place] | V, Medical | 08/24/19) | | | | [address] | Synoptic Meteorologist | | | | | [address] [place], [place] | | | | | | [address] | | | | | | [phone] | | | +--------+ + + + [...] [place] | | | | | | [id number] | | | | | | | | +--------+---------+ + + + | 12/06/ | Office | Nephrology | Farrukh Acuna MD | | | 2019 | Visit | | [address] [facility] | | | | | | [address] [place], [place] | | | | | | [address] | | | | | | | [...] + + + | REFERENCE LAB | [address] [facility] | [place] [address] | [phone] | | [facility] | | | | + + + + + documented in this encounter Visit Diagnoses Not on filedocumented in this encounter"
--- OUTSIDE RECORDS SUMMARY | ~2019-10-10 | XMS | Encounter Summary ---
Demographics + + + | Address | [address] | | | [place] [address] | + + + | Home Phone [...] Providers + +------+ + | Care Director Government Name | Role | Phone | + +------+ + | Rahul Silva MD | PCP | | + +------+ + Encounter Details +--------+ + + + + | Date | Type | Department | Care Team | Description | +--------+ + + + + | 07/27/ | Orders Only | [facility] | Farrukh Acuna MD | Chronic kidney | | 2019 | | NEPHROLOGY [place] | [address] [place] | disease, stage IV | | | | [address] [place] | [address] [place], [place] | (severe) (HCC); | | | | [address] [place], [place] | [address] | Chronic kidney | | | | [address] | | disease, stage IV | | | | [phone] | | (severe) (HCC); | | | [...] [place] | | | | | | [address] | | | | | | | | +--------+---------+ + + + | 12/06/ | Office | Nephrology | Farrukh Acuna MD | | | 2019 | Visit | | [address] [facility] | | | | | | [address] [place], [place] | | | | | | [address] | | | | | | | [...]
--- OUTSIDE RECORDS SUMMARY | ~2019-10-10 | XMS | Encounter Summary ---
Demographics + + + | Address | [address] | | | [place] [address] | + + + | Home Phone [...] [place] | | | | | [address] | | + + + + + Care Team Providers + +------+ + | Care Drawer In Jacquard Loom Name | Role | Phone | + [...] as of this encounter Progress Notes Interface, Leak Operator Paraffin Plant In - 11/10/2006 2:27 AM PSTCLINIC DATE: [...] he embarked on this. Galo Arora M.D. Graphite Disk Assembler, Plastic and Reconstructive Surgery [id number] / [id number] / [id number] / 700 cc: Nelson Melara M.D. Anesthesiology. [facility]. [id number] signed by Interface, Leak Operator Paraffin Plant In at 11/10/2006 2:27 AM PSTdocume nted in this encounter Plan of Treatment Not on filedocumented as of this encounter Visit Diagnoses Not on filedocumented in this encounter"
--- OUTSIDE RECORDS SUMMARY | ~2019-10-10 | XMS | Encounter Summary ---
Demographics + + + | Address | [address] | | | [place] [address] | + + + | Home Phone [...] [facility] | | | and [...] Providers + +------+ + | Care Jewelry Bench Molder Name | Role | Phone | + +------+ + | Rahul Silva MD | PCP | | + +------+ + Encounter Details +--------+ + + + + | Date | Type | Department | Care Team | Description | +--------+ + + + + | 08/31/ | Orders Only | [facility] | Farrukh Acuna MD | | | 2013 | | NEPHROLOGY [place] | [address] [place] | | | | | [address] [place] | [address] [place], [place] | | | | | [address] [place], [place] | [address] | | | | | [address] | | | | | | [phone] | | | +--------+ + + + [...] [place] | | | | | | [address] | | | | | | | | +--------+---------+ + + + | 12/06/ | Office | Nephrology | Farrukh Acuna MD | | | 2019 | Visit | | [address] | | | | | | [address] [place] | | | | | | [address] | | | | | | | [...] | | | LAB | | | UKRAINIAN | | | | | + + [...]
--- OUTSIDE RECORDS SUMMARY | ~2019-10-10 | XMS | Clinical Summary ---
Demographics + + + | Address | [address] | | | [place] [address] | + + + | Home Phone | | + + + | Preferred Language | Unknown | + + + | Marital Status | | + + + | Anabaptism Affiliation | 1077 | + + + | Race | Unknown | + + + | Ethnic Group | Unknown | + + + Author + + + | Author | [facility] (Historical as of | | | 07-17-19) | + + + | Organization | [facility] (Historical as of | | | 07-17-19) [...] Providers + +------+ + | Care Land Leveler Name | Role | Phone | + +------+ + | aRhul Silva MD | PP | Unavailable | [...] | | | | | 4 (severe) ([facility]), | | | | | | | [...] Last Assessment & Plan: Controlled on current [id number] yr | | old male with COPD, [...] +------+-------+ + | MEDICARE | MEDICA | [id number] | | | [address] | | | RE | | | | [place] [address] | | | IP-OP | | | | | + +--------+ +------+-------+ + | MEDICAID | EASTER | [id number] | | | [address] | | | N | | | | [place], [place] | | | [place] | | | | [address] | | | UNDERCUTTER OPERATOR | | | | | + +--------+ [...] | Self | [birth year] | Home: | [address] [place] [address] | | | al/Fam | | 1940 | [phone] | [place] | | | chula | | | 8711 | [address] | + +--------+ +--------+ + +
--- OUTSIDE RECORDS SUMMARY | ~2019-10-10 | XMS | Encounter Summary ---
Demographics + + + | Address | [address] | | | [place] [address] | + + + | Home Phone [...] [address] Young | | | | | [place], [place] | [place], [place] | | | | | [address] | [address] | | | | | [phone] | [phone] | | | | | | | [...] [place] | | | | | | [address] | | | | | | | | +--------+---------+ + + + | 12/06/ | Office | Nephrology | Farrukh Acuna MD | | | 2019 | Visit | | [address] [facility] | | | | | | [address] [place] | | | | | | [address] | | | | | | | [...]
--- OUTSIDE RECORDS SUMMARY | ~2019-10-10 | XMS | Encounter Summary ---
Demographics + + + | Address | [address] | | | [place] [address] | + + + | Home Phone [...] Team Providers + +------+ + | Care Recording Studio Set Up Worker Name | Role | Phone | [...] + + | 08/18/ | Refill | [facility] | Sandy Capellan | Medication Refill | | 2019 | | NEPRHOLOGY [place] Valadez RN | | | | | [address] | | | | | | [address] [place], [place] | | | | | | [address] | | | | | | [phone] | | | +--------+--------+ + + + [...] [place] | | | | | | [address] | | | | | | | | +--------+---------+ + + + | 12/06/ | Office | Nephrology | Farrukh Acuna MD | | | 2020 | Visit | | [address] [facility] | | | | | | [address] [place], [place] | | | | | | [address] | | | | | | | [...]
--- OUTSIDE RECORDS SUMMARY | ~2019-10-10 | XMS | Encounter Summary ---
Demographics + + + | Address | [address] | | | [place] [address] | + + + | Home Phone [...] Team Providers + +------+ + | Care Chemistry Physics Teacher Name | Role | Phone | [...] E | | | | | | (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) | | | | ULTRASOUND [address] | [place] | | | | | [address] [place] | [address] | | | | | [place] | | | | | | [address] | | | | | | [phone] | | | +--------+ + + + [...] | | | | | [address] [place] | | | | | | [id number] | | | | | | | | +--------+---------+ + + + | 12/06/ | Office | Nephrology | Farrukh Acuna MD | | | 2019 | Visit | | [address] | | | | | | [address] [place] | | | | | | [address] | | | | | | | [...]
--- OUTSIDE RECORDS SUMMARY | ~2019-10-10 | XMS | Encounter Summary ---
Demographics + + + | Address | [address] | | | [place] [address] | + + + | Home Phone [...] Team Providers + +------+ + | Care Custodial Operations Manager Name | Role | Phone | + +------+ + | Rahul Silva MD | PCP | | + +------+ + Encounter Details +--------+ + + + + | Date | Type | Department | Care Team | Description | +--------+ + + + + | 10/03/ | Orders Only | [facility] | Conversion | | | 2015 | | NEPRHOLOGY [place] | Transaction, | | | | | [address] | Provider Unknown | | | | | [address] [place], [place] | [phone] | | | | | [address] | (Fax) | | | | | [phone] | | | +--------+ + + + [...] [place] | | | | | | [address] | | | | | | | | +--------+---------+ + + + | 12/06/ | Office | Nephrology | Farrukh Acuna MD | | | 2019 | Visit | | [address] | | | | | | [address] [place] | | | | | | [address] | | | | | | | [...] | | LAB | | | [facility] | | | | | + + [...]
--- OUTSIDE RECORDS SUMMARY | ~2019-10-10 | XMS | Encounter Summary ---
Demographics + + + | Address | [address] | | | [place] [address] | + + + | Home Phone [...] Team Providers + +------+ + | Care Campaign Manager Name | Role | Phone | + +------+ + | Rahul Silva MD | PCP | | + +------+ + Encounter Details +--------+ + + + + | Date | Type | Department | Care Team | Description | +--------+ + + + + | 07/26/ | Orders Only | [facility] | Farrukh Acuna MD | Chronic kidney | | 2019 | | NEPRHOLOGY [place] | [address] | disease, stage IV | | | | [address] | [address] [place], [place] | (severe) (HCC); | | | | [address] [place], [place] | [address] | 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
--- OUTSIDE RECORDS SUMMARY | ~2019-10-10 | XMS | Encounter Summary ---
Demographics + + + | Address | [address] | | | [place] [address] | + + + | Home Phone [...] [place] | | | | | [address] | | + + + + + Care Team Providers + +------+ + | Care Warehouse Operations Associate Name | Role | Phone | [...] Clinic | | | | | | [facility], [address] | | | | | | [place], [place] | | | | | | [address] | | | | | | [phone] | | | +--------+ + + + [...] as of this encounter Progress Notes Interface, Principal Bioinformatics Specialist In - 01/06/2007 5:03 AM PST CLINIC DATE: 10/31/97 [facility] - PROCEDURE NOTE PROCEDURE: [...] his left thigh stump. Nelson Melara M.D. Skating Rink Ice Maker, Anest[facility]iology [facility] MANDY/maryjo documented in this encounter Plan of Treatment Not on filedocumented as of this encounter Visit Diagnoses Not on filedocumented in this encounter"
--- OUTSIDE RECORDS SUMMARY | ~2019-10-10 | XMS | Encounter Summary ---
Demographics + + + | Address | [address] | | | [place] [address] | + + + | Home Phone [...] Providers + +------+ + | Care Industrial Pipefitter Journeyman Name | Role | Phone | + [...] | Transaction, | | | | | [place], [place] | Provider Unknown | | | | | [address] | | | | | | [phone] | | | +--------+ + + + [...] | Office | Vascular Surgery | Trisha Conenr DNP | | | 2018 | Visit | | [address] | | | | | | [place] | | | | | | [address] | | | | | | | | +--------+---------+ + + + | 12/06/ | Office | Nephrology | Farrukh Acuna MD | | | 2019 | Visit | | [address] [facility] [place] | | | | | | [address] [place] | | | | | | [address] | | | | | | | [...] + + + | RED CELL | 2.98 (L) | 4.20 - 5.70 | EXTERNAL | | | COUNT | | 10*6/uL | LAB | | + + + + + + | Hgb | 9.0 (L) | 13.2 - 17.0 [...]
--- OUTSIDE RECORDS SUMMARY | ~2019-10-10 | XMS | Encounter Summary ---
Demographics + + + | Address | [address] | | | [place] [address] | + + + | Home Phone [...] Providers + +------+ + | Care Business Center Representative Name | Role | Phone | [...] [address] | | | | | [place], [place] | [place], [place] | | | | | [address] | [address] | | | | | [phone] | [phone] | | | | | | | [...] [place] | | | | | | [address] | | | | | | | | +--------+---------+ + + + | 12/06/ | Office | Nephrology | Farrukh Acuna MD | | | 2019 | Visit | | [address] [facility] | | | | | | [address] [place] | | | | | | [address] | | | | | | | [...]
--- OUTSIDE RECORDS SUMMARY | ~2019-10-10 | XMS | Encounter Summary ---
Demographics + + + | Address | [address] | | | [place] [address] | + + + | Home Phone [...] Providers + +------+ + | Care Hand Tapper Name | Role | Phone | + [...] + + | 09/10/ | Surgery | [facility] | Brian Orsoco MD | INSERTION AV FISTULA | | 2019 [facility] | [address] | (Right BBF) | | | | OPERATING ROOM [address] | [place], [place] | | | | | [place] [place] | [address] | | | | | [place], [place] | [phone] | | | | | [address] | | | | | | [phone] | | | +--------+---------+ + + + [...] shunt, please contact your ph ysician at [phone]. Discharge instructions for Diagnostic Imaging sedation patients [...] in a reclining position for the ri ky home, or have an adult in the [...] Anexsia, Lorcet, Lorcet HD, Lorcet Plus, Lortab, Phoenix, Verdrocet, Vicodin, Vi codin ES, Vicodin HP, [...] information carefully each time. Talk to your applications system analyst regarding the use of this medicine in children. Special care may be needed. What side effects may I notice from receiving this medicine? Side effects that you should report to your doctor or health hospice patient care secretary as soon as p ossible: allergic reactions [...] attention (report to your doctor or health hospice patient care secretary if they continue or are bothersome): constipation [...] to an official disposal site. Contact the [facility] at [phone] or your [facility] to find a site. If you [...] this medicine? Tell your doctor or health hospice patient care secretary if your pain does not go away, [...] acetaminophen with this medicine. Always read farhan grazon carefully. If you have questions, ask your [...] cuts, scrapes, or blows. Date Last Reviewed: 12/01/201619998581-6879 [employer]. [address] [place] [address], [place] [id number]. All righ ts reserved. This information is [...] and bl ood clots prevention. Prescription for Phoenix given and side effects were explained. Patient states that he also takes oxycodone at home; patient and his family were educated about taki ng oxycodone or Phoenix only and not both. OTC Tylenol intake [...] [place] | | | | | | [address] | | | | | | | | +--------+---------+ + + + | 12/06/ | Office | Nephrology | Farrukh Acuna MD | | | 2019 | Visit | | [address] | | | | | | [address] [place] | | | | | | [address] | | | | | | | [...] | | | POC | performed at [facility];[address] | | LABORATORY | | | | [address];[place] | | | | | | [address] | | | | + + + + + + + + | Specimen | + + | | + + + + + + + | Performing | Address | City/State/Zipcode | Phone Number | | Organization | | | | + + + + + | [facility] | [address] | [place] [address] | [phone] | + + + + + POC [...] | | | POC | performed at [facility];[address] | | LABORATORY | | | | [address];[place] | | | | | | [address] | | | | + + + + + + + + | Specimen | + + | | + + + + + + + | Performing | Address | City/State/Zipcode | Phone Number | | Organization | | | | + + + + + | [facility] | [address] | [place] [address] | [phone] | + + + + + documented [...] One week or | | | longer, rbdgaf-bdt-gicvb use of | | | at least [...]
--- OUTSIDE RECORDS SUMMARY | ~2019-10-10 | XMS | Encounter Summary ---
Demographics + + + | Address | [address] | | | [place] [address] | + + + | Home Phone [...] Providers + +------+ + | Care Appeals Representative Name | Role | Phone | + +------+ + | Rahul Silva MD | PCP | | + +------+ + Encounter Details +--------+ + + + + | Date | Type | Department | Care Team | Description | +--------+ + + + + | 07/20/ | Orders Only | [facility] | Farrukh Acuna MD | Anemia of chronic | | 2019 | | NEPHROLOGY [place] | [address] [place] | renal failure, stage | | | | [address] [place] | [address] [place], [place] | 4 (severe) (HCC) | | | | [address] [place], [place] | [address] | (Primary Dx); Stage | | | | [address] | | 4 chronic kidney | | | | [phone] | | disease (HCC); | | | [...] [place] | | | | | | [address] | | | | | | | | +--------+---------+ + + + | 12/06/ | Office | Nephrology | Farrukh Acuna MD | | | 2019 | Visit | | [address] [facility] | | | | | | [address] [place] | | | | | | [address] | | | | | | | [...]
--- OUTSIDE RECORDS SUMMARY | ~2019-10-10 | XMS | Encounter Summary ---
Demographics + + + | Address | [address] | | | [place] [address] | + + + | Home Phone [...] Team Providers + +------+ + | Care Geology Scientist Name | Role | Phone | + +------+ + PCP | Unavailable | + +------+ + Encounter Details +--------+ + + + + | Date | Type | Department | Care Team | Description | +--------+ + + + + | 05/22/ | [facility] | [facility] | Nelson Lutz MD | | | 1998 | Encounter | MED CTR GENERIC OP | [address], [place] | | | | | CONV DEPT [address] | [address] [place] | | | | | [place], | [address] | | | | | [place] [address] | | | | | | [phone] | | | +--------+ + + + [...] [address] | | | | | | [place] | | | | | | [address] | | | | | | | | +--------+---------+ + + + | 12/06/ | Office | Nephrology | Farrukh Acuna MD | | | 2020 | Visit | | [address] [facility] | | | | | | [address] [place] | | | | | | [address] | | | | | | | | +--------+---------+ + + + documented as of this encounter Visit Diagnoses Not on filedocumented in this encounter"
--- OUTSIDE RECORDS SUMMARY | ~2019-10-10 | XMS | Encounter Summary ---
Demographics + + + | Address | [address] | | | [place] [address] | + + + | Home Phone [...] Providers + +------+ + | Care Hospice Volunteer Name | Role | Phone | + [...] [address] Young | | | | | [place], [place] | [place], [place] | | | | | [address] | [address] | | | | | [phone] | [phone] | | | | | | | [...] [place] | | | | | | [address] | | | | | | | | +--------+---------+ + + + | 12/06/ | Office | Nephrology | Farrukh Acuna MD | | | 2019 | Visit | | [address] [facility] | | | | | | [address] [place] | | | | | | [address] | | | | | | | [...]
--- OUTSIDE RECORDS SUMMARY | ~2019-10-10 | XMS | Encounter Summary ---
Demographics + + + | Address | [address] | | | [place] [address] | + + + | Home Phone [...] Providers + +------+ + | Care Trademark Paralegal Name | Role | Phone | [...] [address] | | | | | [place], [place] | [place], [place] | | | | | [address] | [address] | | | | | [phone] | [phone] | | | | | | | [...] [place] | | | | | | [address] | | | | | | | | +--------+---------+ + + + | 12/06/ | Office | Nephrology | Farrukh Acuna MD | | | 2019 | Visit | | [address] [facility] | | | | | | [address] [place] | | | | | | [address] | | | | | | | [...]
--- OUTSIDE RECORDS SUMMARY | ~2019-10-10 | XMS | Encounter Summary ---
Demographics + + + | Address | [address] | | | [place] [address] | + + + | Home Phone [...] Providers + +------+ + | Care Seat Installer Name | Role | Phone | [...] [address] Young | | | | | [place], [place] | [place], [place] | | | | | [address] | [address] | | | | | [phone] | [phone] | | | | | | | [...] [place] | | | | | | [address] | | | | | | | | +--------+---------+ + + + | 12/06/ | Office | Nephrology | Farrukh Acuna MD | | | 2019 | Visit | | [address] [facility] | | | | | | [address] [place] | | | | | | [address] | | | | | | | [...]
--- OUTSIDE RECORDS SUMMARY | ~2019-10-10 | XMS | Encounter Summary ---
Demographics + + + | Address | [address] | | | [place] [address] | + + + | Home Phone [...] [place] | | | | | [address] | | + + + + + Care Team Providers + +------+ + | Care Insulation Blanket Maker Name | Role | Phone | [...] | | | | | | [place], | | | | | | [place] [address] | | | | | | [phone] | | | +--------+ + + + [...] as of this encounter Discharge Summaries Interface, Inbound Customer Service Agent In - 02/05/2007 1:03 AM PST [address] [address] [facility] MEDICAL SUMMARY OF HOSPITALIZATION Med Rec No.: [id number] Admission Date: 12/28/96 Name: Kavon Andujar Discharge Date: 01/03/97 STAFF PHYSICIAN: Robert Carlson M.D. Professor, Vascular Surgery PRINCIPAL FINAL DIAGNOSIS: Osteophyte of left gdcaa-onl-vobz amputation stump. ADDITIONAL DIAGNOSES: Phantom pain. PRINCIPAL PROCEDURE: Revision of left tkcuh-frn-glxx amputation stump and excision of left stump osteophyte. 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 Since then he has had pain in the stump. On a computed tomography (CT) scan, it was noted that he had a large bone spur and a cyst in his stump site. HOSPITAL COURSE: The patient was admitted on December 28 and underwent revision of his left bacno-mns-ajwp amputation stump with excision of his left [...] Normal. 3. DIET: Normal. Nick Noriega M.D. Vacuum Tester Cans, General Surgery Robert Carlson M.D. Professor, Vascular Surgery DOMINIC/jc A cc: RUBIA KNAPP MD [address] [facility] [address] documented in this encounter Plan of Treatment Not on filedocumented as of this encounter Visit Diagnoses Not on filedocumented in this encounter"
--- OUTSIDE RECORDS SUMMARY | ~2019-10-10 | XMS | Encounter Summary ---
Demographics + + + | Address | [address] | | | [place] [address] | + + + | Home Phone [...] Team Providers + +------+ + | Care Roofing Tile Sorter Name | Role | Phone | + +------+ + | Rahul Silva MD | PCP | | + +------+ + Encounter Details +--------+ + + + + | Date | Type | Department | Care Team | Description | +--------+ + + + + | 01/26/ | Orders Only | [facility] | Conversion | | | 2014 | | NEPRHOLOGY [place] | Transaction, | | | | | [address] | Provider Unknown | | | | | [address] [place], [place] | | | | | | [address] | (Fax) | | | | | [phone] | | | +--------+ + + + [...] [place] | | | | | | [address] | | | | | | | | +--------+---------+ + + + | 12/06/ | Office | Nephrology | Farrukh Acuna MD | | | 2019 | Visit | | [address] [facility] | | | | | | [address] [place] | | | | | | [address] | | | | | | | [...]
--- OUTSIDE RECORDS SUMMARY | ~2019-10-10 | XMS | Encounter Summary ---
Demographics + + + | Address | [address] | | | [place] [address] | + + + | Home Phone [...] Providers + +------+ + | Care Superintendent Container Terminal Name | Role | Phone | [...] | [address] | [address] [facility] | | | | | [place], [place] | [address] | | | | | [address] | [id number] | | | | | [phone] | | | +--------+ + + + [...] [place] | | | | | | [id number] | | | | | | | | +--------+---------+ + + + | 12/06/ | Office | Nephrology | Farrukh Acuna MD | | | 2019 | Visit | | [address] [place] | | | | | | [address] | | | | | | [id number] | | | | | | | [...]
--- OUTSIDE RECORDS SUMMARY | ~2019-10-10 | XMS | Encounter Summary ---
Demographics + + + | Address | [address] | | | [place] [address] | + + + | Home Phone [...] | Darci Zavala | ECON | [place] | | | | | [address] | | + + + + + Care Team Providers + +------+ + | Care Boat Engines Installer Name | Role | Phone | + +------+ + PCP | Unavailable | + +------+ + Encounter Details +--------+ + + + + | Date | Type | Department | Care Team | Description | +--------+ + + + + | 03/30/ | Results | | Other, Faculty | | | 1992 | Only | | [phone] | | +--------+ + + + + [...] | | + +---------+ + + | [facility] DEPARTMENT OF | | | | [...] | | + +---------+ + + | [facility] DEPARTMENT OF | | | | [...] | | | | | | | [id number] AND | | | | | | [...] | | + +---------+ + + | [facility] DEPARTMENT OF | | | | [...] | | + +---------+ + + | [facility] DEPARTMENT OF | | | | [...] | | | | | | | [id number] | | | | | | CHEST: [...] | | | | | | | [id number] | | | | | | CHEST: [...] | | | | | | | [id number], | | | | | | PORTABLE, [...] | | + +---------+ + + | [facility] DEPARTMENT OF | | | | [...] | | | | | | | [id number], | | | | | | PORTABLE, [...] | | | | | | [place] Ganzcatheter are | | | | | [...] | | + +---------+ + + | [facility] DEPARTMENT OF | | | | [...] | | + +---------+ + + | [facility] DEPARTMENT OF | | | | [...] | | | | | a [place]-Lupe catheter | | | | | | [...] | | | placement of a [place]-Lupe | | | | | | catheter. CHEST, | | | | | | SINGLE AP PORTABLE: | | | | | | 03-31-93 AT 1000 HOURS | | | | | | FINDINGS: Since the | | | | | | prior study, the | | | | | | [place]-Lupe catheter has | | | | | [...] | | | | | | [place]-Lupe catheter | | | | | | [...] | | | | | | [place]-Lupe catheter | | | | | | [...] | | | | | | [place]-Lupe catheter | | | | | | [...] | | | | | | tube,[place]-Lupe catheter | | | | | | [...] | | | | | a [place]-Lupe catheter | | | | | | [...] | | | placement of a [place]-Lupe | | | | | | catheter. CHEST, | | | | | | SINGLE AP PORTABLE: | | | | | | 03-31-93 AT 1000 HOURS | | | | | | FINDINGS: Since the | | | | | | prior study, the | | | | | | [place]-Lupe catheter has | | | | | [...] | | | | | | [place]-Lupe catheter | | | | | | [...] | | | | | | [place]-Lupe catheter | | | | | | [...] | | | | | | [place]-Lupe catheter | | | | | | [...] | | | | | | tube,[place]-Lupe catheter | | | | | | [...] | | + +---------+ + + | [facility] DEPARTMENT OF | | | | [...] | | | | | a [place]-Lupe catheter | | | | | | [...] | | | placement of a [place]-Lupe | | | | | | catheter. CHEST, | | | | | | SINGLE AP PORTABLE: | | | | | | 03-31-93 AT 1000 HOURS | | | | | | FINDINGS: Since the | | | | | | prior study, the | | | | | | [place]-Lupe catheter has | | | | | [...] | | | | | | [place]-Lupe catheter | | | | | | [...] | | | | | | [place]-Lupe catheter | | | | | | [...] | | | | | | [place]-Lupe catheter | | | | | | [...] | | | | | | tube,[place]-Lupe catheter | | | | | | [...] | | + +---------+ + + | [facility] DEPARTMENT OF | | | | [...] | | | | | a [place]-Lupe catheter | | | | | | [...] | | | placement of a [place]-Lupe | | | | | | catheter. CHEST, | | | | | | SINGLE AP PORTABLE: | | | | | | 03-31-93 AT 1000 HOURS | | | | | | FINDINGS: Since the | | | | | | prior study, the | | | | | | [place]-Lupe catheter has | | | | | [...] | | | | | | [place]-Lupe catheter | | | | | | [...] | | | | | | [place]-Lupe catheter | | | | | | [...] | | | | | | [place]-Lupe catheter | | | | | | [...] | | | | | | tube,[place]-Lupe catheter | | | | | | [...] | | + +---------+ + + | [facility] DEPARTMENT OF | | | | [...] | | | | | a [place]-Lupe catheter | | | | | | [...] | | | placement of a [place]-Lupe | | | | | | catheter. CHEST, | | | | | | SINGLE AP PORTABLE: | | | | | | 03-31-93 AT 1000 HOURS | | | | | | FINDINGS: Since the | | | | | | prior study, the | | | | | | [place]-Lupe catheter has | | | | | [...] | | | | | | [place]-Lupe catheter | | | | | | [...] | | | | | | [place]-Lupe catheter | | | | | | [...] | | | | | | [place]-Lupe catheter | | | | | | [...] | | | | | | tube,[place]-Lupe catheter | | | | | | [...] | | | | | | [facility] | | | | | [...] | | | | | a [place]-Lupe catheter | | | | | | [...] | | | placement of a [place]-Lupe | | | | | | catheter. CHEST, | | | | | | SINGLE AP PORTABLE: | | | | | | 03-31-93 AT 1000 HOURS | | | | | | FINDINGS: Since the | | | | | | prior study, the | | | | | | [place]-Lupe catheter has | | | | | [...] | | | | | | [place]-Lupe catheter | | | | | | [...] | | | | | | [place]-Lupe catheter | | | | | | [...] | | | | | | [place]-Lupe catheter | | | | | | [...] | | | | | | tube,[place]-Lupe catheter | | | | | | [...] | | | | | a [place]-Lupe catheter | | | | | | [...] | | | placement of a [place]-Lupe | | | | | | catheter. CHEST, | | | | | | SINGLE AP PORTABLE: | | | | | | 03-31-93 AT 1000 HOURS | | | | | | FINDINGS: Since the | | | | | | prior study, the | | | | | | [place]-Lupe catheter has | | | | | [...] | | | | | | [place]-Lupe catheter | | | | | | [...] | | | | | | [place]-Lupe catheter | | | | | | [...] | | | | | | [place]-Lupe catheter | | | | | | [...] | | | | | | tube,[place]-Lupe catheter | | | | | | [...]
--- OUTSIDE RECORDS SUMMARY | ~2019-10-10 | XMS | Encounter Summary ---
Demographics + + + | Address | [address] | | | [place] [address] | + + + | Home Phone [...] [place] | | | | | [address] | | + + + + + Care Team Providers + +------+ + | Care Vp Outcomes Name | Role | Phone | + [...] Clinic | | | | | | [facility], [address] | | | | | | [place], [place] | | | | | | [address] | | | | | | [phone] | | | +--------+ + + + [...] as of this encounter Progress Notes Interface, Small Craft Operator In - 01/06/2007 5:03 AM PST CLINIC DATE: 11/10/97 [facility] - FOLLOW-UP VISIT SUBJECTIVE: [...] of narcotic medication misuse. Nelson Melara M.D. Marine Fisheries Technician, Anest[facility] MANDY/camryn cc: Robert Carlson M.D. Professor, Vascular Surgery documented in this encounter Plan of Treatment Not on filedocumented as of this encounter Visit Diagnoses Not on filedocumented in this encounter"
--- OUTSIDE RECORDS SUMMARY | ~2019-10-10 | XMS | Encounter Summary ---
Demographics + + + | Address | [address] | | | [place] [address] | + + + | Home Phone [...] Providers + +------+ + | Care Music Orchestrator Name | Role | Phone | + [...] | on | NEPHROLOGY [place] | [place] [facility] | | | | | [address] | Director Selection And Administration | | | | | [address] | | | | | | [place] | | | | | | [address] | | | | | | [phone] | | | +--------+ + + + [...] [place] | | | | | | [address] | | | | | | | | +--------+---------+ + + + | 12/06/ | Office | Nephrology | Farrukh Acuna MD | | | 2019 | Visit | | [address] [facility] | | | | | | [address] [place], [place] | | | | | | [address] | | | | | | | [...]
--- OUTSIDE RECORDS SUMMARY | ~2019-10-10 | XMS | Encounter Summary ---
Demographics + + + | Address | [address] | | | [place] [address] | + + + | Home Phone [...] Team Providers + +------+ + | Care Presbyterian Clergy Name | Role | Phone | + [...] [address] | | | | | [place], [place] | [place], [place] | | | | | [address] | [address] | | | | | [phone] | [phone] | | | | | | | [...] [place] | | | | | | [address] | | | | | | | | +--------+---------+ + + + | 12/06/ | Office | Nephrology | Farrukh Acuna MD | | | 2019 | Visit | | [address] [facility] | | | | | | [address] [place] | | | | | | [address] | | | | | | | [...]
--- OUTSIDE RECORDS SUMMARY | ~2019-10-10 | XMS | Encounter Summary ---
Demographics + + + | Address | [address] | | | [place] [address] | + + + | Home Phone [...] Team Providers + +------+ + | Care Microfilm Operator Name | Role | Phone | + +------+ + | Rahul Silva MD | PCP | | + +------+ + Encounter Details +--------+ + + + + | Date | Type | Department | Care Team | Description | +--------+ + + + + | 09/01/ | Orders Only | [facility] | Farrukh Acuna MD | | | 2013 | | NEPHROLOGY [place] | [address] [place] | | | | | [address] [place] | [address] [place], [place] | | | | | [address] [place], [place] | [address] | | | | | [address] | | | | | | [phone] | | | +--------+ + + + [...] [place] | | | | | | [address] | | | | | | | | +--------+---------+ + + + | 12/06/ | Office | Nephrology | Farrukh Acuna MD | | | 2019 | Visit | | [address] | | | | | | [address] [place] | | | | | | [address] | | | | | | | [...] | | | LAB | | | [place] | | | | | + + [...]
--- OUTSIDE RECORDS SUMMARY | ~2019-10-10 | XMS | Encounter Summary ---
Demographics + + + | Address | [address] | | | [place] [address] | + + + | Home Phone [...] Providers + +------+ + | Care Certified Nurse Operating Room Name | Role | Phone | [...] + + | 10/06/ | Telephone | [facility] | Farrukh Acuna MD | Other | | 2019 | | NEPHROLOGY [place] | [address] [place] | | | | | [address] [place] | [address] [place], [place] | | | | | [address] [place], [place] | [address] | | | | | [address] | | | | | | [phone] | | | +--------+ + + + [...] [place] | | | | | | [address] | | | | | | | | +--------+---------+ + + + | 12/06/ | Office | Nephrology | Farrukh Acuna MD | | | 2020 | Visit | | [address] [facility] | | | | | | [facility] [place] | | | | | | [address] | | | | | | | | +--------+---------+ + + + documented as of this encounter Visit Diagnoses Not on filedocumented in this encounter"
--- OUTSIDE RECORDS SUMMARY | ~2019-10-10 | XMS | Encounter Summary ---
Demographics + + + | Address | [address] | | | [place] [address] | + + + | Home Phone [...] Team Providers + +------+ + | Care Tea And Spice Supervisor Name | Role | Phone | [...] | sleep apnea) | | | | [place] Tonya Castaneda, | [place] | (Primary Dx); COPD | | | | [place] [address] | [address] | (chronic obstructive | | | | [phone] | | pulmonary disease) | | | [...] [place] | | | | | | [address] | | | | | | | | +--------+---------+ + + + | 12/06/ | Office | Nephrology | Farrukh Acuna MD | | | 2019 | Visit | | [address] | | | | | | [address] [place] | | | | | | [address] | | | | | | | [...]
--- OUTSIDE RECORDS SUMMARY | ~2019-10-10 | XMS | Encounter Summary ---
Demographics + + + | Address | [address] | | | [place] [address] | + + + | Home Phone [...] Team Providers + +------+ + | Care Wound Care Center Consultant Name | Role | Phone | + +------+ + | Rahul Silva MD | PCP | | + +------+ + Encounter Details +--------+ + + + + | Date | Type | Department | Care Team | Description | +--------+ + + + + | 05/27/ | Orders Only | [facility] | Conversion | | | 2018 | | NEPRHOLOGY [place] | Transaction, | | | | | [address] | Provider Unknown | | | | | [address] [place], [place] | [phone] | | | | | [address] | (Fax) | | | | | [phone] | | | +--------+ + + + [...] [place] | | | | | | [address] | | | | | | | | +--------+---------+ + + + | 12/06/ | Office | Nephrology | Farrukh Acuna MD | | | 2019 | Visit | | [address] | | | | | | [address] [place] | | | | | | [address] | | | | | | | [...]
--- OUTSIDE RECORDS SUMMARY | ~2019-10-10 | XMS | Clinical Summary ---
Demographics + + + | Address | [address] | | | [place] [address] | + + + | Home Phone [...] Author + + + | Author | [facility] | + + + | Organization | [facility] | + + + | Address | Unknown | + + + | Phone | Unavailable | + + + Support + + + + + | Name | Relationship | Address | Phone | + + + + + | Darci Andujar | [address]ER[address] | [place] | | | | | [address] | | + + + + + Care Team Providers + +------+ + | Care Granite Polisher Apprentice Name | Role | Phone | + +------+ + | Rahul Silva MD | PCP | | + +------+ + Source Comments [place] is fully live on both [facility] and [facility] Allergies No Known Allergies Medications + + [...]
--- OUTSIDE RECORDS SUMMARY | ~2019-10-10 | XMS | Encounter Summary ---
Demographics + + + | Address | [address] | | | [place] [address] | + + + | Home Phone [...] Team Providers + +------+ + | Care Mining Speculator Name | Role | Phone | + [...] [address] | | | | | [place], [place] | [place], [place] | | | | | [address] | [address] | | | | | [phone] | [phone] | | | | | | | [...] [place] | | | | | | [address] | | | | | | | | +--------+---------+ + + + | 12/06/ | Office | Nephrology | Farrukh Acuna MD | | | 2019 | Visit | | [address] [facility] [address] | | | | | | [address] [place] | | | | | | [address] | | | | | | | [...]
--- OUTSIDE RECORDS SUMMARY | ~2019-10-10 | XMS | Encounter Summary ---
Demographics + + + | Address | [address] | | | [place] [address] | + + + | Home Phone [...] Providers + +------+ + | Care Field Crop Harvest Worker Name | Role | Phone | [...] + + | 09/13/ | Telephone | [facility] | Terri Aguilar, | Follow-up | | 2018 | | VASCULAR SURGERY | Chip Mixing Machine Operator | | | | | [address] | | | | | | [facility] [place] | | | | | | [address] | | | | | | [phone] | | | +--------+ + + + [...] [place] | | | | | | [address] | | | | | | | | +--------+---------+ + + + | 12/06/ | Office | Nephrology | Farrukh Acuna MD | | | 2019 | Visit | | [address] [facility] | | | | | | [facility] | | | | | | [address] | | | | | | | | +--------+---------+ + + + documented as of this encounter Visit Diagnoses Not on filedocumented in this encounter"
--- OUTSIDE RECORDS SUMMARY | ~2019-10-10 | XMS | Encounter Summary ---
Demographics + + + | Address | [address] | | | [place] [address] | + + + | Home Phone [...] Team Providers + +------+ + | Care Photoengraving Etcher Name | Role | Phone | + +------+ + | Rahul Silva MD | PCP | | + +------+ + Encounter Details +--------+ + + + + | Date | Type | Department | Care Team | Description | +--------+ + + + + | 07/06/ | Orders Only | [facility] | Farrukh Acuna MD | | | 2018 | | NEPRHOLOGY [place] | [address] | | | | | [address] | [address] [place], [place] | | | | | [address] [place], [place] | [address] | | | | | [address] | | | | | | [phone] | | | +--------+ + + + [...] [place] | | | | | | [address] | | | | | | | | +--------+---------+ + + + | 12/06/ | Office | Nephrology | Farrukh Acuna MD | | | 2020 | Visit | | [address] [facility] [address] | | | | | | [address] [place] | | | | | | [address] | | | | | | | [...] | | | LAB | | | BAHRAINI | | | | | + + [...]
--- OUTSIDE RECORDS SUMMARY | ~2019-10-10 | XMS | Encounter Summary ---
Demographics + + + | Address | [address] | | | [place] [address] | + + + | Home Phone [...] Providers + +------+ + | Care Test Center Administrator Name | Role | Phone | + +------+ + PCP | Unavailable | + +------+ + Encounter Details +--------+ + + + + | Date | Type | Department | Care Team | Description | +--------+ + + + + | 08/02/ | [facility] | [facility] | Nelson Lutz MD | | | 1991 | Encounter | MED CTR GENERIC OP | [address], [place] | | | | | CONV DEPT [address] | [address] [place] | | | | | [place], | [address] | | | | | [place] [address] | | | | | | [phone] | | | +--------+ + + + [...] [place] | | | | | | [address] | | | | | | | | +--------+---------+ + + + | 12/06/ | Office | Nephrology | Farrukh Acuna MD | | | 2020 | Visit | | [address] [facility] | | | | | | [address] [place] | | | | | | [address] | | | | | | | | +--------+---------+ + + + documented as of this encounter Visit Diagnoses Not on filedocumented in this encounter"
--- OUTSIDE RECORDS SUMMARY | ~2019-10-10 | XMS | Encounter Summary ---
Demographics + + + | Address | [address] | | | [place] [address] | + + + | Home Phone [...] Providers + +------+ + | Care Equipment Operating Engineer Name | Role | Phone | + +------+ + | Rahul Silva MD | PCP | | + +------+ + Encounter Details +--------+ + + + + | Date | Type | Department | Care Team | Description | +--------+ + + + + | 05/27/ | Orders Only | [facility] | Farrukh Acuna MD | | | 2017 | | NEPHROLOGY [place] | [address] [place] | | | | | [address] [place] | [address] [place], [place] | | | | | [address] [place], [place] | [address] | | | | | [address] | | | | | | [phone] | | | +--------+ + + + [...] [place] | | | | | | [address] | | | | | | | | +--------+---------+ + + + | 12/06/ | Office | Nephrology | Farrukh Acuna MD | | | 2020 | Visit | | [address] | | | | | | [address] [place] | | | | | | [address] | | | | | | | [...] | | | LAB | | | CHINESE | | | | | + + [...]
--- OUTSIDE RECORDS SUMMARY | ~2019-10-10 | XMS | Encounter Summary ---
Demographics + + + | Address | [address] | | | [place] [address] | + + + | Home Phone [...] Providers + +------+ + | Care Program Management Manager Name | Role | Phone | + +------+ + | Rahul Silva MD | PCP | | + +------+ + Encounter Details +--------+ + + + + | Date | Type | Department | Care Team | Description | +--------+ + + + + | 09/07/ | Orders Only | [facility] | Farrukh Acuna MD | | | 2018 | | NEPRHOLOGY [place] | [address] | | | | | [address] [place] | [address] [place], [place] | | | | | [address] [place], [place] | [address] | | | | | [address] | | | | | | [phone] | | | +--------+ + + + [...] [place] | | | | | | [address] | | | | | | | | +--------+---------+ + + + | 12/06/ | Office | Nephrology | Farrukh Acuna MD | | | 2020 | Visit | | [address] [facility] [address] | | | | | | [address] [place] | | | | | | [address] | | | | | | | [...]
--- OUTSIDE RECORDS SUMMARY | ~2019-10-10 | XMS | Encounter Summary ---
Demographics + + + | Address | [address] | | | [place] [address] | + + + | Home Phone [...] Providers + +------+ + | Care Heat Treat Technician Name | Role | Phone | + +------+ + PCP | Unavailable | + +------+ + Encounter Details +--------+ + + + + | Date | Type | Department | Care Team | Description | +--------+ + + + + | 08/02/ | [facility] | [facility] | Nelson Lutz MD | | | 1991 | Encounter | MED CTR GENERIC OP | [address] [facility], [place] | | | | | CONV DEPT [address] | [address] [place] | | | | | [facility] [place], | [address] | | | | | [place] [address] | | | | | | [phone] | | | +--------+ + + + [...] | | | | | | [address] [place] | | | | | | [address] | | | | | | | | +--------+---------+ + + + | 12/06/ | Office | Nephrology | Farrukh Acuna MD | | | 2020 | Visit | | [address] [facility] | | | | | | [address] [place] | | | | | | [address] | | | | | | | | +--------+---------+ + + + documented as of this encounter Visit Diagnoses Not on filedocumented in this encounter"
--- OUTSIDE RECORDS SUMMARY | ~2019-10-10 | XMS | Encounter Summary ---
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
--- OUTSIDE RECORDS SUMMARY | ~2019-10-10 | XMS | Encounter Summary ---
Demographics + + + | Address | [address] | | | [place] [address] | + + + | Home Phone [...] Team Providers + +------+ + | Care Network Support Engineer Name | Role | Phone [...] (OTHER) | | 2019 | Procedure | [facility] | [address] | | | | | OPERATING ROOM [address] | [place] [address] [place], [place] | | | | | [address] | [address] | | | | | [place], [place] | [phone] | | | | | [address] | | | | | | [phone] | | | +--------+ + + + [...] [place] | | | | | | [id number] | | | | | | | | +--------+---------+ + + + | 12/06/ | Office | Nephrology | Farrukh Acuna MD | | | 2020 | Visit | | [address] [facility] [place] | | | | | | [address] [place], [place] | | | | | | [address] | | | | | | | | +--------+---------+ + + + documented as of this encounter Visit Diagnoses Not on filedocumented in this encounter"
--- OUTSIDE RECORDS SUMMARY | ~2019-10-10 | XMS | Encounter Summary ---
Demographics + + + | Address | [address] | | | [place] [address] | + + + | Home Phone [...] Providers + +------+ + | Care Meter Attendant Name | Role | Phone | [...] + + | 08/26/ | Office | [facility] | Trisha Conner DNP | CKD (chronic kidney | | 2019 | Visit | VASCULAR SURGERY | [address] | disease) stage 5, | | | | [address] [place] | [place], [place] | GFR less than 15 | | | | [place], [place] | [address] | ml/min (HCC) | | | | [address] | | (Primary Dx) | | | | [phone] | Brian Orosco MD | | | | | | [address] | | | | | | [place], [place] | | | | | | [address] | | | | | | [phone] | | | | | | | [...] CV: No peripheral edema, rate regular SKIN: Jenner, warm, dry without rash/lesion MS: ROM not [...] | | | | | [address] [place], [place] | | | | | | [address] | | | | | | | | +--------+---------+ + + + | 12/06/ | Office | Nephrology | Farrukh Acuna MD | | | 2019 | Visit | | [address] [facility] | | | | | | [address] [place], [place] | | | | | | [address] | | | | | | | [...] | | | than 15 ml/min ([facility] | | + +------+--------+ + + | CBC no Differential | Lab | Routin | CKD (chronic | 1 Occurrences | | | | e | kidney disease) | starting 08/26/2019 | | | | | stage 5, GFR less | until 08/26/2020 | | | | | than 15 ml/min ([facility]) | | + +------+--------+ + + documented as of this encounter Visit Diagnoses + + | Diagnosis | + + | CKD (chronic kidney disease) stage 5, GFR less than 15 ml/min ([facility]) - Primary Chronic | | kidney disease, Stage V | + + documented in this encounter"
--- OUTSIDE RECORDS SUMMARY | ~2019-10-10 | XMS | Encounter Summary ---
Demographics + + + | Address | [address] | | | [place] [address] | + + + | Home Phone [...] Providers + +------+ + | Care Internal Medicine Physician Name | Role | Phone [...] + + | 09/03/ | Telephone | [facility] | Simon, | Lab Results | | 2019 | | NEPHROLOGY CONNIE | [facility] | | | | | [address] | Retail Department Reset | | | | | [address] [place], [place] | | | | | | [address] | | | | | | [phone] | | | +--------+ + + + [...] [place] | | | | | | [address] | | | | | | | | +--------+---------+ + + + | 12/06/ | Office | Nephrology | Farrukh Acuna MD | | | 2019 | Visit | | [address] [facility] | | | | | | [address] [facility] | | | | | | [address] | | | | | | | | +--------+---------+ + + + documented as of this encounter Visit Diagnoses Not on filedocumented in this encounter"
--- OUTSIDE RECORDS SUMMARY | ~2019-10-10 | XMS | Encounter Summary ---
Demographics + + + | Address | [address] | | | [place] [address] | + + + | Home Phone [...] + | 10/27/ | Orders Only | [facility] | Conversion | | | 2016 | | NEPHROLOGY [place] | Transaction, | | | | | [address] | Provider Unknown | | | | | [address] | | | | | | [address] | (Fax) | | | | | [phone] | | | +--------+ + + + [...] [place] | | | | | | [address] | | | | | | | | +--------+---------+ + + + | 12/06/ | Office | Nephrology | Farrukh Acuna MD | | | 2019 | Visit | | [address] | | | | | | [address] [place] | | | | | | [address] | | | | | | | [...]
--- OUTSIDE RECORDS SUMMARY | ~2019-10-10 | XMS | Encounter Summary ---
Demographics + + + | Address | [address] | | | [place] [address] | + + + | Home Phone [...] [facility] Abrhaam | | | [...] Providers + +------+ + | Care Flight Service Specialist Name | Role | Phone | [...] + + | 08/18/ | Refill | [facility] | Sandy Capellan | Medication Refill | | 2019 | | NEPRHOLOGY PAIGE Valadze RN | | | | | [address] | | | | | | [address] [place], [place] | | | | | | [address] | | | | | | [phone] | | | +--------+--------+ + + + [...] [place] | | | | | | [address] | | | | | | | | +--------+---------+ + + + | 12/06/ | Office | Nephrology | Farrukh Acuna MD | | | 2020 | Visit | | [address] [facility] | | | | | | 160 [place], [place] | | | | | | [address] | | | | | | | [...]
--- OUTSIDE RECORDS SUMMARY | ~2019-10-10 | XMS | Encounter Summary ---
Demographics + + + | Address | [address] | | | [place] [address] | + + + | Home Phone [...] [place] | | | | | [address] | | + + + + + Care Team Providers + +------+ + | Care Service Station Equipment Mechanic Name | Role | Phone [...] | | | [facility], [address] | | | | | | [place], [place] | | | | | | [address] | | | | | | [phone] | | | +--------+ + + + [...] of this encounter Progress Notes Interface, Gas Fitter In - 12/25/2006 5:00 AM [facility] DATE: 03/16/98 PLASTIC SURGERY CLINIC [...] in the near future. Galo Arora M.D. Customer Service Clerk, Division of Plastic & Reconstructive Surgery AYDEE/alfred documented in this encounter Plan of Treatment Not on filedocumented as of this encounter Visit Diagnoses Not on filedocumented in this encounter"
--- OUTSIDE RECORDS SUMMARY | ~2019-10-10 | XMS | Encounter Summary ---
Demographics + + + | Address | [address] | | | [place] [address] | + + + | Home Phone [...] [place] | | | | | [address] | | + + + + + Care Team Providers + +------+ + | Care Derrick Boat Runner Name | Role | Phone | + +------+ + PCP | Unavailable | + +------+ + Encounter Details +--------+ + + + + | Date | Type | Department | Care Team | Description | +--------+ + + + + | 12/22/ | Results | | Other, Faculty | | | 1997 | Only | | [phone] | | +--------+ + + + + [...] | | | | | | 12/22/96 [id number] hours. | | | | | | [...] | | + +---------+ + + | [facility] DEPARTMENT OF | | [...] | | | | | | | [phone] | | | | | | SPINE, [...] | | + +---------+ + + | [facility] DEPARTMENT OF | | | | | RADIOLOGY | | | | + +---------+ + + documented in this encounter Visit Diagnoses Not on filedocumented in this encounter"
--- OUTSIDE RECORDS SUMMARY | ~2019-10-10 | XMS | Encounter Summary ---
Demographics + + + | Address | [address] | | | [place] [address] | + + + | Home Phone [...] Team Providers + +------+ + | Care Locomotive Driver Name | Role | Phone | [...] [address] | | | | | [place], [place] | [place] [address] | | | | | [address] | | | | | | [phone] | (Fax) | | +--------+ + + [...] [place] | | | | | | [address] | | | | | | | | +--------+---------+ + + + | 12/06/ | Office | Nephrology | Farrukh Acuna MD | | | 2019 | Visit | | [address] | | | | | | [address] [place] | | | | | | [address] | | | | | | | [...] pressures of 5-10mmHg. MEASUREMENTS | | | Medical Center Manager: DH Authenticated by: KAI BIRMINGHAM MD Report [...] venous pressures of 5-10mmHg. | | MEASUREMENTS Medical Center Manager: BAIRONuthenticated by: KAI Ho | | Date/Time: [...] | |MEASUREMENTS | | | | | |Medical Center Manager: | |Authenticated by: KAI BIRMINGHAM MD | [...]
--- OUTSIDE RECORDS SUMMARY | ~2019-10-10 | XMS | Encounter Summary ---
Demographics + + + | Address | [address] | | | [place] [address] | + + + | Home Phone [...] Providers + +------+ + | Care Dye Weigher Helper Name | Role | Phone | [...] [address] | | | | | [place], [place] | [place], [place] | | | | | [address] | [address] | | | | | [phone] | | | | | | | [...] 2018 | Visit | | [address] | | | | | | [place] | | | | | | [address] | | | | | | | | +--------+---------+ + + + | 12/06/ | Office | Nephrology | Farrukh Acuna MD | | | 2019 | Visit | | [address] [facility] | | | | | | [address] [place] | | | | | | [address] | | | | | | | [...]
--- OUTSIDE RECORDS SUMMARY | ~2019-10-10 | XMS | Encounter Summary ---
Demographics + + + | Address | [address] | | | [place] [address] | + + + | Home Phone [...] Team Providers + +------+ + | Care Stores Naval Name | Role | Phone | + [...] [address] | | | | | [place], [place] | [place], [place] | | | | | [address] | [address] | | | | | [phone] | [phone] | | | | | | | [...] [place] | | | | | | [address] | | | | | | | | +--------+---------+ + + + | 12/06/ | Office | Nephrology | Farrukh Acuna MD | | | 2019 | Visit | | [address] [facility] | | | | | | [address] [place] [address] | | | | | | [address] | | | | | | | [...]
--- OUTSIDE RECORDS SUMMARY | ~2019-10-10 | XMS | Encounter Summary ---
Demographics + + + | Address | [address] | | | [place] [address] | + + + | Home Phone [...] Team Providers + +------+ + | Care Book Coverer Name | Role | Phone | [...] | [facility] | | Review | Services | Surgery | Stage 5 | Farrukh Rubio MD | Surgery | | | Required | | chronic | [address] | [address] | | | | | kidney | [address] | [address] | | | | | disease not | [place], | [place], [place] | | | | | on chronic | [place] [address] | [address] | | | | | dialysis | Phone: | Phone: | | | | | ([facility]) | [phone] | [phone] | | | | | Hypertension | Fax: | Fax: | | | | | , | [phone] | [phone] | | | | | unspecified | | | | | | | type | | | + + + + + + + Encounter Details +--------+ + + + + | Date | Type | Department | Care Team | Description | +--------+ + + + + | 07/28/ | Orders Only | [facility] | Farrukh Acuna MD | Iron deficiency | | 2019 | | NEPHROLOGY [place] | [address] [place] | (Primary Dx); Anemia | | | | [address] [place] | [address] [place], [place] | of chronic kidney | | | | [address] [place], [place] | [address] | failure, stage 5 | | | | [address] | | ([facility]); Stage 5 | | | | [phone] | | chronic kidney | | | | | | disease not on | | | | | | chronic dialysis | | | | | | ([facility]); Secondary | | | | | | hyperparathyroidism | | | | | | ([facility]); Hypertension, | | | | | | [...] [place] | | | | | | [address] | | | | | | | | +--------+---------+ + + + | 12/06/ | Office | Nephrology | Farrukh Acuna MD | | | 2019 | Visit | | [facility] [facility] | | | | | | 160 [place], [place] | | | | | | [address] | | | | | | | [...] until 07/28/2020 | | | | | ([facility]) Hypertension, | | | | | | [...] | | | | ([facility]) Hypertension, | | | | | | unspecified type | | + +------+--------+ + + | Ferritin | Lab | Routin | Iron deficiency | Expected: | | | | e | Anemia of chronic | 09/27/2019, Expires: | | | | | kidney failure, | 07/28/2020 | | | | | stage 5 ([facility]) Stage | | | | | | 5 chronic kidney | | | | | | disease not on | | | | | | chronic dialysis | | | | | | ([facility]) Hypertension, | | | | | | unspecified type | | + +------+--------+ + + | Parathyroid Hormone, | Lab | Routin | Stage 5 chronic | Expected: | | Intact | | e | kidney disease not | 09/27/2019, Expires: | | | | | on chronic dialysis | 07/28/2020 | | | | | ([facility]) Secondary | | | | | | hyperparathyroidism | | | | | | ([facility]) Hypertension, | | | | | | unspecified type | | + +------+--------+ + + + + +--------+ + + | Name | Type | Priori | Associated Diagnoses | Order Schedule | | | | ty | | | + + +--------+ + + | Ambulatory Referral | Outpatient | Routin | Stage 5 chronic | Ordered: 07/28/2019 | | to [facility] | Referral | e | [...]
--- OUTSIDE RECORDS SUMMARY | ~2019-10-10 | XMS | Encounter Summary ---
Demographics + + + | Address | [address] | | | [place] [address] | + + + | Home Phone [...] +------+ + | Care Home Health Care Social Worker Name | Role | Phone [...] | | | | [place], [place] | [place], [place] | | | | | [address] | [address] | | | | | [phone] | [phone] | | | | | | | [...] [place] | | | | | | [address] | | | | | | | | +--------+---------+ + + + | 12/06/ | Office | Nephrology | Farrukh Acuna MD | | | 2019 | Visit | | [address] [facility] | | | | | | [address] [place] [address] | | | | | | [address] | | | | | | | [...]
--- OUTSIDE RECORDS SUMMARY | ~2019-10-10 | XMS | Encounter Summary ---
Demographics + + + | Address | [address] | | | [place] [address] | + + + | Home Phone [...] Providers + +------+ + | Care Commercial Stripper Name | Role | Phone | [...] | [address] [place] | Web Development Director | | | | | [address] [place], [place] | | | | | | [address] | | | | | | [phone] | | | +--------+ + + + [...] [place] | | | | | | [address] | | | | | | | | +--------+---------+ + + + | 12/06/ | Office | Nephrology | Farrukh Acuna MD | | | 2019 | Visit | | [facility] [facility] | | | | | | [address] [place] | | | | | | [address] | | | | | | | [...]
--- OUTSIDE RECORDS SUMMARY | ~2019-10-10 | XMS | Encounter Summary ---
Demographics + + + | Address | [address] | | | [place] [address] | + + + | Home Phone [...] Providers + +------+ + | Care Personal Banker Name | Role | Phone | + +------+ + | Rahul Silva MD | PCP | | + +------+ + Encounter Details +--------+ + + + + | Date | Type | Department | Care Team | Description | +--------+ + + + + | 11/09/ | Orders Only | [facility] | Omlan Toussaint MD | | | 2016 | | [address] | [address] | | | | | [place], [place] | [place], [place] | | | | | [address] | [address] | | | | | [phone] | [phone] | | | | | | | [...] [place] | | | | | | [address] | | | | | | | | +--------+---------+ + + + | 12/06/ | Office | Nephrology | Farrukh Acuna MD | | | 2019 | Visit | | [address] | | | | | | [address] [place] | | | | | | [address] | | | | | | | [...] + + | Attending/Visit Provider: TAE MD, LENOORA, , , , , EH, | EXTERNAL [...]
--- OUTSIDE RECORDS SUMMARY | ~2019-10-10 | XMS | Encounter Summary ---
Demographics + + + | Address | [address] | | | [place] [address] | + + + | Home Phone [...] Providers + +------+ + | Care Automobile Parker Name | Role | Phone | + [...] [address] | | | | | [place], [place] | [place], [place] | | | | | [address] | [address] | | | | | [phone] | | | | | | | [...] [place] | | | | | | [address] | | | | | | | | +--------+---------+ + + + | 12/06/ | Office | Nephrology | Farrukh Acuna MD | | | 2019 | Visit | | [address] [facility] | | | | | | [address] [place] | | | | | | [address] | | | | | | | [...]
--- OUTSIDE RECORDS SUMMARY | ~2019-10-10 | XMS | Encounter Summary ---
Demographics + + + | Address | [address] | | | [place] [address] | + + + | Home Phone [...] Team Providers + +------+ + | Care Server Security Administrator Name | Role | Phone | + +------+ + | Rahul Silva MD | PCP | | + +------+ + Encounter Details +--------+ + + + + | Date | Type | Department | Care Team | Description | +--------+ + + + + | 09/07/ | Preadmit | [facility] | Brian Orosco MD | | | 2019 | Visit | CENTER [facility] | [address] | | | | | CLINIC [address] | [place], [place] | | | | | [place] | [address] | | | | | [address] | [phone] | | | | | [phone] | | | +--------+ + + + [...] for the 09/07/19 encounter (Preadmit Visit) with [facility] ROOM 4 Medication Sig Instructions acyclovir [...] LOBBY REGISTRATION. TAKE THE ELEVATOR BY THE DELI TO THE SECOND FLOOR to CH JANNA IN FOR SURGERY. Once elevator door opens you step out to check-in desk and are in the [facility] waiting room. AttachmentsThe following attachments cannot be sent through Care Everywhere.Hemodialysis Ac cess, Creating a ([place])Dialysis, Arteriovenous (AV) Fistula for ([place])documented in th is encounter Plan of Treatment +--------+---------+ + + + | Date | Type | Specialty | Care Team | Description | +--------+---------+ + + + | 10/20/ | Office | Vascular Surgery | Trisha Conner DNP | | | 2018 | Visit | | [address] | | | | | | [place] | | | | | | [id number] | | | | | | | | +--------+---------+ + + + | 12/06/ | Office | Nephrology | Farrukh Acuna MD | | | 2019 | Visit | | [facility] [facility] [place] | | | | | | 160 [place], [place] | | | | | | [address] | | | | | | | [...] | 10.5 | 8.5 - 10.5 | [facility] | | | | | mg/dL | LABORATORY | | + + + + + + | Estimated | 12 (L)Comment: GFR <60: | >60 | [facility] | | | GFR | CHRONIC KIDNEY [...] | | | | | | MDRD IDGA traceable | | | | | | equation.Testing | | | | | | performed at [facility], [address] | | | | | | [facility], | | | | | | [place] [address] | | | | + + + + + + + + | Specimen | + + | Blood | + + + + + + + | Performing | Address | City/State/Zipcode | Phone Number | | Organization | | | | + + + + + | [facility] | [address] | [place] [address] | [phone] | + + + + + CBC [...] | | | Absolute | performed at [facility], [address] | K/uL | LABORATORY | | | | [place], | | | | | | [place] [address] | | | | + + + + + + + + | Specimen | + + | Blood | + + + + + + + | Performing | Address | City/State/Zipcode | Phone Number | | Organization | | | | + + + + + | [facility] | [address] | [place] [address] | [phone] | + + + + + ECG [...]
--- OUTSIDE RECORDS SUMMARY | ~2019-10-10 | XMS | Encounter Summary ---
Demographics + + + | Address | [address] | | | [place] [address] | + + + | Home Phone [...] Team Providers + +------+ + | Care Vibrator Equipment Tester Name | Role | Phone | + +------+ + | Rahul Silva MD | PCP | | + +------+ + Encounter Details +--------+ + + + + | Date | Type | Department | Care Team | Description | +--------+ + + + + | 11/27/ | Orders Only | [facility] | Conversion | | | 2017 | | NEPHROLOGY [place] | Transaction, | | | | | [address] | Provider Unknown | | | | | [address] [place] [address] | | | | | | [address] | (Fax) | | | | | [phone] | | | +--------+ + + + [...] [place] | | | | | | [address] | | | | | | | | +--------+---------+ + + + | 12/06/ | Office | Nephrology | Farrukh Acuna MD | | | 2019 | Visit | | [address] | | | | | | [address] [place] | | | | | | [address] | | | | | | | [...]
--- OUTSIDE RECORDS SUMMARY | ~2019-10-10 | XMS | Encounter Summary ---
Demographics + + + | Address | [address] | | | [place] [address] | + + + | Home Phone [...] Providers + +------+ + | Care Hydraulic Specialist Name | Role | Phone | + +------+ + PCP | Unavailable | + +------+ + Encounter Details +--------+ + + + + | Date | Type | Department | Care Team | Description | +--------+ + + + + | 07/18/ | [facility] | [facility] | Nelson Lutz MD | | | 2002 | Encounter | MED CTR GENERIC OP | [address], [place] | | | | | CONV DEPT [address] | [address] [place] | | | | | [place], | [address] | | | | | [place] [address] | | | | | | [phone] | | | +--------+ + + + [...] [place] | | | | | | [address] | | | | | | | | +--------+---------+ + + + | 12/06/ | Office | Nephrology | Farrukh Acuna MD | | | 2020 | Visit | | [address] [facility] | | | | | | [address] [place] | | | | | | [address] | | | | | | | | +--------+---------+ + + + documented as of this encounter Visit Diagnoses Not on filedocumented in this encounter"
--- OUTSIDE RECORDS SUMMARY | ~2019-10-10 | XMS | Encounter Summary ---
Demographics + + + | Address | [address] | | | [place] [address] | + + + | Home Phone [...] Team Providers + +------+ + | Care Contracting Manager Name | Role | Phone | + +------+ + | Rahul Silva MD | PCP | | + +------+ + Encounter Details +--------+ + + + + | Date | Type | Department | Care Team | Description | +--------+ + + + + | 08/19/ | Orders Only | [facility] | Farrukh Acuna MD | | | 2018 | | NEPHROLOGY [place] | [address] [place] | | | | | [address] [place] | [address] [place], [place] | | | | | [address] [place], [place] | [address] | | | | | [address] | | | | | | [phone] | | | +--------+ + + + [...] [place] | | | | | | [address] | | | | | | | | +--------+---------+ + + + | 12/06/ | Office | Nephrology | Farrukh Acuna MD | | | 2020 | Visit | | [address] | | | | | | [address] [place] | | | | | | [address] | | | | | | | [...]
--- OUTSIDE RECORDS SUMMARY | ~2019-10-10 | XMS | Encounter Summary ---
Demographics + + + | Address | [address] | | | [place] [address] | + + + | Home Phone [...] Providers + +------+ + | Care Shipping Packer Name | Role | Phone | + +------+ + | Rahul Silva MD | PCP | | + +------+ + Encounter Details +--------+ + + + + | Date | Type | Department | Care Team | Description | +--------+ + + + + | 08/19/ | Orders Only | [facility] | Conversion | | | 2017 | | NEPHROLOGY [place] | Transaction, | | | | | [address] | Provider Unknown | | | | | [address] [place] | | | | | | [address] | (Fax) | | | | | [phone] | | | +--------+ + + + [...] [place] | | | | | | [address] | | | | | | | | +--------+---------+ + + + | 12/06/ | Office | Nephrology | Farrukh Acuna MD | | | 2019 | Visit | | [address] | | | | | | [address] [place] | | | | | | [address] | | | | | | | [...] | | | LAB | | | [facility] | | | | | + + [...]
--- OUTSIDE RECORDS SUMMARY | ~2019-10-10 | XMS | Encounter Summary ---
Demographics + + + | Address | [address] | | | [place] [address] | + + + | Home Phone [...] Providers + +------+ + | Care Odd Bundle Worker Name | Role | Phone | [...] [address] | | | | | [place], [place] | [place], [place] | | | | | [address] | [address] | | | | | [phone] | [phone] | | | | | | | [...] [place] | | | | | | [address] | | | | | | | | +--------+---------+ + + + | 12/06/ | Office | Nephrology | Farrukh Acuna MD | | | 2019 | Visit | | [address] [facility] | | | | | | [address] [place] [address] | | | | | | [address] | | | | | | | [...]
--- OUTSIDE RECORDS SUMMARY | ~2019-10-10 | XMS | Encounter Summary ---
Demographics + + + | Address | [address] | | | [place] [address] | + + + | Home Phone [...] Team Providers + +------+ + | Care Optical Instruments Supervisor Name | Role | Phone | [...] + + | 09/28/ | Telephone | [facility] | Jason Sandy D, | Appointment | | 2018 | | VASCULAR SURGERY | RN | | | | | [address] | | | | | | [address] [place] | | | | | | [address] | | | | | | [phone] | | | +--------+ + + + [...] [place] | | | | | | [address] | | | | | | | | +--------+---------+ + + + | 01/06/ | Office | Nephrology | Farrukh Acuna MD | | | 2019 | Visit | | [address] [facility] | | | | | | [facility] | | | | | | [address] | | | | | | | | +--------+---------+ + + + documented as of this encounter Visit Diagnoses Not on filedocumented in this encounter"
--- OUTSIDE RECORDS SUMMARY | ~2019-10-10 | XMS | Encounter Summary ---
Demographics + + + | Address | [address] | | | [place] [address] | + + + | Home Phone [...] Team Providers + +------+ + | Care Anesthesiologist And Critical Care Name | Role | Phone | + +------+ + | Rahul Silva MD | PCP | | + +------+ + Encounter Details +--------+ + + + + | Date | Type | Department | Care Team | Description | +--------+ + + + + | 09/17/ | Orders Only | [facility] | Collin Mirza, | | | 2015 | | NEPHROLOGY [place] | CASH OFFICE WORKER [address] | | | | | [address] [place] | [address] | | | | | [address] [place], [place] | [facility] | | | | | [address] | [address] | | | | | [phone] | [phone] | | | | | | | [...] [place] | | | | | | [address] | | | | | | | | +--------+---------+ + + + | 12/06/ | Office | Nephrology | Farrukh Acuna MD | | | 2019 | Visit | | [address] [facility] | | | | | | [address] [place] | | | | | | [address] | | | | | | | [...] | | | LAB | | | [place] | | | | | + + [...]
--- OUTSIDE RECORDS SUMMARY | ~2019-10-10 | XMS | Encounter Summary ---
Demographics + + + | Address | [address] | | | [place] [address] | + + + | Home Phone [...] Providers + +------+ + | Care Supervisor Waterproofing Name | Role | Phone | + +------+ + | Rahul Silva MD | PCP | | + +------+ + Encounter Details +--------+ + + + + | Date | Type | Department | Care Team | Description | +--------+ + + + + | 01/23/ | Orders Only | [facility] | Collin Mirza, | | | 2015 | | NEPHROLOGY [place] | JUST[address] | | | | | [address] [place] | [address] | | | | | [address] [place], [place] | [place] | | | | | [address] | [address] | | | | | [phone] | [phone] | | | | | | | [...] [place] | | | | | | [address] | | | | | | | | +--------+---------+ + + + | 12/06/ | Office | Nephrology | Farrukh Acuna MD | | | 2019 | Visit | | [address] | | | | | | [address] [place] | | | | | | [address] | | | | | | | [...]
--- OUTSIDE RECORDS SUMMARY | ~2019-10-10 | XMS | Encounter Summary ---
Demographics + + + | Address | [address] | | | [place] [address] | + + + | Home Phone [...] Providers + +------+ + | Care Color Printer Operator Name | Role | Phone | + +------+ + | Rahul Silva MD | PCP | | + +------+ + Encounter Details +--------+ + + + + | Date | Type | Department | Care Team | Description | +--------+ + + + + | 02/12/ | Orders Only | [facility] | Conversion | | | 2018 | | NEPHROLOGY [place] | Transaction, | | | | | [address] | Provider Unknown | | | | | [address] [place] | | | | | | [phone] | (Fax) | | | | | [phone] | | | +--------+ + + + [...] [place] | | | | | | [id number] | | | | | | | | +--------+---------+ + + + | 12/06/ | Office | Nephrology | Farrukh Acuna MD | | | 2019 | Visit | | [address] [place] | | | | | | [address] [place] | | | | | | [id number] | | | | | | | [...]
--- OUTSIDE RECORDS SUMMARY | ~2019-10-10 | XMS | Encounter Summary ---
Demographics + + + | Address | [address] | | | [place] [address] | + + + | Home Phone [...] [place] | | | | | [address] | | + + + + + Care Team Providers + +------+ + | Care Computer Information Science Professor Name | Role | Phone | + +------+ + PCP | Unavailable | + +------+ + Encounter Details +--------+ + + + + | Date | Type | Department | Care Team | Description | +--------+ + + + + | 01/31/ | Transcribed | Allergy Clinic at | [place], Other | Transcribed | | 1997 | | [facility] [address] | | | | | | [address] | | | | | | Mailcode: [address] | | | | | | [address] | | | | | | [place], | | | | | | [place] [address] | | | | | | [phone] | | | +--------+ + + + [...] of this encounter Progress Notes Interface, Clinical Science Liaison In - 12/28/2006 5:10 AM PST [address] [address] or January 31, 1998 GRIFFIN SMILEY MD [address] [facility] [place] [address] RE:PORFIRIO ZAVALA MR#:[id number] Smiley: As [...] in the future. Sincerely, Nelson Melara M.D. Finisher Plate, Anesthesiology [facility] MANDY/geovanni documented in this encounter Plan of Treatment Not on filedocumented as of this encounter Visit Diagnoses Not on filedocumented in this encounter"
--- OUTSIDE RECORDS SUMMARY | ~2019-10-10 | XMS | Encounter Summary ---
Demographics + + + | Address | [address] | | | [place] [address] | + + + | Home Phone [...] Providers + +------+ + | Care Manager Voice Name | Role | Phone | + +------+ + PCP | Unavailable | + +------+ + Encounter Details +--------+ + + + + | Date | Type | Department | Care Team | Description | +--------+ + + + + | 05/22/ | [facility] | [facility] | Nelson Lutz MD | | | 1998 | Encounter | MED CTR GENERIC OP | [address], [place] | | | | | CONV DEPT [address] | [address] | | | | | [place], | [address] | | | | | [place] [address] | | | | | | [phone] | | | +--------+ + + + [...] [place] | | | | | | [address] | | | | | | | | +--------+---------+ + + + | 12/06/ | Office | Nephrology | Farrukh Acuna MD | | | 2020 | Visit | | [address] [facility] | | | | | | [address] | | | | | | [address] | | | | | | | | +--------+---------+ + + + documented as of this encounter Visit Diagnoses Not on filedocumented in this encounter"
--- OUTSIDE RECORDS SUMMARY | ~2019-10-10 | XMS | Encounter Summary ---
Demographics + + + | Address | [address] | | | [place] [address] | + + + | Home Phone [...] [place] | | | | | [address] | | + + + + + Care Team Providers + +------+ + | Care Moisture Machine Tender Name | Role | Phone | + +------+ + PCP | Unavailable | + +------+ + Encounter Details +--------+ + + + + | Date | Type | Department | Care Team | Description | +--------+ + + + + | 03/31/ | Results | Pulmonary Function | Jarod Gupta MD | | | 1992 | Only | Lab at [facility] [address] | [address] | | | | | [address] | [place], | | | | | Mailcode: [id number] | [place] [address] | | | | | [place] | [phone] | | | | | [place], [place] | | | | | | [address] | | | | | | [phone] | | | +--------+ + + + [...] | | | | | | a [place]-Lupe catheter | | | | | | [...] | | | | placement of a [place]-Lupe | | | | | | catheter. CHEST, | | | | | | SINGLE AP PORTABLE: | | | | | | 03-31-93 AT 1000 HOURS | | | | | | FINDINGS: Since the | | | | | | prior study, the | | | | | | [place]-Lupe catheter has | | | | | [...] IMPRESSION: | | | | | | [place]-Lupe catheter | | | | | | [...] The | | | | | | [place]-Lupe catheter | | | | | | [...] and | | | | | | [place]-Lupe catheter | | | | | | [...] endotracheal | | | | | | tube,[place]-Lupe catheter | | | | | | [...] +---------+ + + | [facility] | | | | | [...] | + + + + + | [facility] | [address] | [place] [address] | | | PATHOLOGY | [address] | | | + + + + + documented in this encounter Visit Diagnoses Not on filedocumented in this encounter"
--- OUTSIDE RECORDS SUMMARY | ~2019-10-10 | XMS | Encounter Summary ---
Demographics + + + | Address | [address] | | | [place] [address] | + + + | Home Phone [...] [place] | | | | | [address] | | + + + + + Care Team Providers + +------+ + | Care Welding Manager Name | Role | Phone | [...] Note | | 2000 | Visit-Trans | [address] [facility] | [phone] | | | | [address] | [address] | | | | | | [place], [place] | | | | | | [address] | | | +--------+ + + + [...] recommend that he see one of our health and safety specialist for further evaluation, and he did appear interested in doing that. 2. Referral to Dr. Willis in Orthopedics. Yuriy Huang M.D. assistant community manager HOSEAL / [phone] / [id number] / [id number] / [phone] C: 01/23/2001 nw documented in this encounter Plan of Treatment Not on filedocumented as of this encounter Visit Diagnoses Not on filedocumented in this encounter"
--- OUTSIDE RECORDS SUMMARY | ~2019-10-10 | XMS | Encounter Summary ---
Demographics + + + | Address | [address] | | | [place] [address] | + + + | Home Phone [...] Team Providers + +------+ + | Care Joint Terminal Attack Controller Name | Role | Phone | [...] [address] | | | | | [place], [place] | [place], [place] | | | | | [address] | [address] | | | | | [phone] | [phone] | | | | | | | [...] [place] | | | | | | [address] | | | | | | | | +--------+---------+ + + + | 12/06/ | Office | Nephrology | Farrukh Acuna MD | | | 2019 | Visit | | [address] [facility] [address] | | | | | | [address] [place] [address] | | | | | | [address] | | | | | | | [...]
--- OUTSIDE RECORDS SUMMARY | ~2019-10-10 | XMS | Encounter Summary ---
Demographics + + + | Address | [address] | | | [place] [address] | + + + | Home Phone [...] [place] | | | | | [address] | | + + + + + Care Team Providers + +------+ + | Care Bench Press Operator Name | Role | Phone | + +------+ + PCP | Unavailable | + +------+ + Encounter Details +--------+ + + + + | Date | Type | Department | Care Team | Description | +--------+ + + + + | 12/28/ | Procedure - | Digestive Health | Record, Operation | Operative Report | | 1996 | | [place] at [facility] [address] | | | | | Transcribed | Ruben Linares | | | | | | Mailcode: [place] | | | | | | [facility] Health and | | | | | | Healing, Building [address] | | | | | | [facility] [place] | | | | | | [address] | | | | | | [phone] | | | +--------+ + + + [...] | + + | 12/28/1996 12:00 AM [facility] | | [facility] | | [address], [place] [address] | | [facility] | | | | OPERATION RECORD | | | | Med Rec No.: [id number] Date: 12/28/96 | | | | Name: Mehran Andujarald Arturo | | | | | | ATTENDING SURGEON: Robert Carlson M.D. | | Professor, | | Vascular Surgery | | | | RADIO TIME SALES SUPERVISOR(S): Nick Noriega M.D. | | Apple Press Operator, General Surgery | | | | POSTOPERATIVE DIAGNOSIS(ES): Left stump osteophyte. | | | | OPERATION(S) PERFORMED: Revision of left dqnjb-reb-yxjw amputation | | and excision of stump osteophyte. | | | | SPECIMEN(S) REMOVED: 1. Swab of pseudocapsule for culture. | | 2. Osteophyte to Pathology. | | | | ANESTHESIA: General endotracheal anesthesia. 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 He has developed pain over the stump. A recent CT scan showed | | an osteophyte growing on the end of the stump. | | | | PROCEDURE: The patient was taken to the Operating Room. | | General endotracheal anesthesia was | | performed by Anesthesia. The | | left pjigi-qum-gqzk amputation stump was sterilely prepped and draped [...] | | Nick Noriega M.D. | | Apple Press Operator, General Surgery | | Robert Carlson M.D. | | Professor, | | Vascular Surgery | | | | DOMINIC/jc | | | | A | | | | cc: | | | + + documented in this encounter Visit Diagnoses Not on filedocumented in this encounter"
--- OUTSIDE RECORDS SUMMARY | ~2019-10-10 | XMS | Encounter Summary ---
Demographics + + + | Address | [address] | | | [place] [address] | + + + | Home Phone [...] [place] | | | | | [address] | | + + + + + Care Team Providers + +------+ + | Care Photovoltaic Panel Installer Name | Role | Phone | + +------+ + PCP | Unavailable | + +------+ + Encounter Details +--------+ + + + + | Date | Type | Department | Care Team | Description | +--------+ + + + + | 04/06/ | Procedure - | Digestive Health | Record, Operation | Operative Report | | 1997 | | [place] at [facility] [address] | | | | | Transcribed | Ruben Linares | | | | | | Mailcode: [place] | | | | | | [facility] Health and | | | | | | Healing, Building 2 | | | | | | [facility] [place] | | | | | | [address] | | | | | | [phone] | | | +--------+ + + + [...] + + | 04/06/1998 12:00 AM PDT [place] | | [facility] | | [address], [place] [address] | | [facility] | | | | OPERATION RECORD | | | | Med Rec No.: [id number] Date: 04/06/98 | | | | Name: Con Kavon Morris | | | | | | ATTENDING SURGEON: | | Galo Arora M.D. | | Wireless Sales Associate, | | Division of Plastic & | | Reconstructive Surgery | | TECHNICAL SUPPORT MANAGER(S): | | Barry Fofana M.D. | [...] | | Galo Arora M.D. | | Wireless Sales Associate, | | Division of Plastic & | | Reconstructive Surgery | | WOJCIECH/pita | | | | P | | C: 05/12/98 lv | | cc: | | | + + documented in this encounter Visit Diagnoses Not on filedocumented in this encounter"
--- OUTSIDE RECORDS SUMMARY | ~2019-10-10 | XMS | Encounter Summary ---
Demographics + + + | Address | [address] | | | [place] [address] | + + + | Home Phone [...] [place] | | | | | [address] | | + + + + + Care Team Providers + +------+ + | Care Diesel Inspector Name | Role | Phone | + +------+ + PCP | Unavailable | + +------+ + Encounter Details +--------+ + + + + | Date | Type | Department | Care Team | Description | +--------+ + + + + | 06/07/ | Transcribed | Allergy Clinic at | Mary Baptiste | Transcribed | | 1996 | | [facility] [address] | | | | | | [address] | | | | | | Mailcode: [address] | | | | | | [address] [place] | | | | | | [address], | | | | | | [place] [address] | | | | | | [phone] | | | +--------+ + + + [...] as of this encounter Progress Notes Interface, Boarding Machine Operator In - 01/22/2007 3:04 AM PST [address] [address] or June 07, 1997 Pravin VALLES MD [address] [place] [address] [place] [address] RE:Kavon Andujar MR#:[id number] Valles: I saw Kavon Andujar in the Neurology Clinic today and have enclosed a copy of my note. 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 in January of this year. He also [...] over the telephone. Sincerely, Michelle Landon M.D. Aircraft Magneto Mechanic, Neurology JINNY/ C: 06/13/97 cc: Alina Moise M.D. Division of Neurosurgery [facility] Robert Carlson M.D. Division of Vascular Surgery [facility] documented in this encounter Plan of Treatment Not on filedocumented as of this encounter Visit Diagnoses Not on filedocumented in this encounter
--- OUTSIDE RECORDS SUMMARY | ~2019-10-10 | XMS | Encounter Summary ---
Demographics + + + | Address | [address] | | | [place] [address] | + + + | Home Phone [...] Providers + +------+ + | Care Warehouse Trainer Name | Role | Phone | + +------+ + | Rahul Silva MD | PCP | | + +------+ + Encounter Details +--------+ + + + + | Date | Type | Department | Care Team | Description | +--------+ + + + + | 11/09/ | Orders Only | [facility] | Olman Tuossaint MD | | | 2016 | | [address] | [address] | | | | | [place], [place] | [place], [place] | | | | | [address] | [address] | | | | | [phone] | [phone] | | | | | | | [...] [place] | | | | | | [address] | | | | | | | | +--------+---------+ + + + | 12/06/ | Office | Nephrology | Farrukh Acuna MD | | | 2019 | Visit | | [address] [facility] | | | | | | [address] [place] [address] | | | | | | [address] | | | | | | | [...]
--- OUTSIDE RECORDS SUMMARY | ~2019-10-10 | XMS | Encounter Summary ---
Demographics + + + | Address | [address] | | | [place] [address] | + + + | Home Phone [...] Providers + +------+ + | Care Board Operator Name | Role | Phone | [...] + + | 09/10/ | Surgery | [facility] | Brian Orosco MD | INSERTION [address] FIST[address]A | | 2019 | [facility] | [address] | (Right BBF) | | | | OPERATING ROOM [address] | [place], [place] | | | | | [address] | [address] | | | | | [place], [place] | [phone] | | | | | [address] | | | | | | [phone] | | | +--------+---------+ + + + [...] shunt, please contact your ph ysician at [phone]. Discharge instructions for Diagnostic Imaging sedation patients [...] in a reclining position for the ri or home, or have an adult in the [...] Anexsia, Lorcet, Lorcet HD, Lorcet Plus, Lortab, Denver, Verdrocet, Vicodin, Vi codin ES, Vicodin HP, [...] information carefully each time. Talk to your climate change analyst regarding the use of this medicine in children. Special care may be needed. What side effects may I notice from receiving this medicine? Side effects that you should report to your doctor or health acute care occupational therapist as soon as p ossible: allergic reactions [...] to your doctor or health acute care occupational therapist if they continue or are bothersome): constipation [...] official disposal site. Contact the [facility] at [phone] or your [facility] to find a site. If you [...] Tell your doctor or health acute care occupational therapist if your pain does not go away, [...] cuts, scrapes, or blows. Date Last Reviewed: 12/01/201619999364-1199 [employer]. [address] [place] [address], [place] [id number]. All righ ts reserved. This information is [...] and bl ood clots prevention. Prescription for Denver given and side effects were explained. Patient states that he also takes oxycodone at home; patient and his family were educated about taki ng oxycodone or Denver only and not both. OTC Tylenol intake [...] [place] | | | | | | [address] | | | | | | | | +--------+---------+ + + + | 12/06/ | Office | Nephrology | Farrukh Acuna MD | | | 2019 | Visit | | [address] | | | | | | [address] [place] | | | | | | [address] | | | | | | | [...] | | | POC | performed at [facility] [place] | | LABORATORY | | | | [address];[place] | | | | | | [address] | | | | + + + + + + + + | Specimen | + + | | + + + + + + + | Performing | Address | City/State/Zipcode | Phone Number | | Organization | | | | + + + + + | [facility] | [address] | [place] [address] | [phone] | + + + + + POC [...] | | | POC | performed at [facility];[address] | | LABORATORY | | | | [address];[place] | | | | | | [address] | | | | + + + + + + + + | Specimen | + + | | + + + + + + + | Performing | Address | City/State/Zipcode | Phone Number | | Organization | | | | + + + + + | [facility] | [address] | [place] [address] | [phone] | + + + + + documented [...] One week or | | | longer, uxbsyv-lyq-wbvyw use of | | | at least [...]
--- OUTSIDE RECORDS SUMMARY | ~2019-10-10 | XMS | Encounter Summary ---
Demographics + + + | Address | [address] | | | [place] [address] | + + + | Home Phone [...] + + | 10/04/ | Documentati | [facility] | Simon, | Results (09/30/19) | | 2019 | on | NEPHROLOGY BASSEM | [facility] | | | | | [address] | [address] Packer | | | | | [address] | | | | | | [place] | | | | | | [address] | | | | | | [phone] | | | +--------+ + + + [...] [place] | | | | | | [address] | | | | | | | | +--------+---------+ + + + | 12/06/ | Office | Nephrology | Farrukh Acuna MD | | | 2019 | Visit | | [address] [facility] | | | | | | [address] [place], [place] | | | | | | [address] | | | | | | | [...]
--- OUTSIDE RECORDS SUMMARY | ~2019-10-10 | XMS | Encounter Summary ---
Demographics + + + | Address | [address] | | | [place] [address] | + + + | Home Phone [...] Team Providers + +------+ + | Care Radiology Equipment Servicer Name | Role | Phone | + +------+ + | Rahul Silva MD | PCP | | + +------+ + Encounter Details +--------+ + + + + | Date | Type | Department | Care Team | Description | +--------+ + + + + | 08/19/ | Orders Only | [facility] | Farrukh Acuna MD | | | 2018 | | NEPHROLOGY [place] | [address] [place] | | | | | [address] [place] | [address] [place], [place] | | | | | [address] [place], [place] | [address] | | | | | [address] | | | | | | [phone] | | | +--------+ + + + [...] [place] | | | | | | [address] | | | | | | | | +--------+---------+ + + + | 12/06/ | Office | Nephrology | Farrukh Acuna MD | | | 2020 | Visit | | [address] | | | | | | [address] [place] | | | | | | [address] | | | | | | | [...]
--- OUTSIDE RECORDS SUMMARY | ~2019-10-10 | XMS | Encounter Summary ---
Demographics + + + | Address | [address] | | | [place] [address] | + + + | Home Phone [...] Team Providers + +------+ + | Care Airplane Dispatch Clerk Name | Role | Phone | [...] + + | 10/06/ | Telephone | [facility] | Farrukh Acuna MD | Other | | 2019 | | NEPHROLOGY [place] | [address] [place] | | | | | [address] [place] | [address] [place], [place] | | | | | [address] [place], [place] | [address] | | | | | [address] | | | | | | [phone] | | | +--------+ + + + [...] [place] | | | | | | [address] | | | | | | | | +--------+---------+ + + + | 12/06/ | Office | Nephrology | Farrukh Acuna MD | | | 2020 | Visit | | [address] [facility] | | | | | | [facility] [place] | | | | | | [address] | | | | | | | | +--------+---------+ + + + documented as of this encounter Visit Diagnoses Not on filedocumented in this encounter"
--- OUTSIDE RECORDS SUMMARY | ~2019-10-10 | XMS | Encounter Summary ---
Demographics + + + | Address | [address] | | | [place] [address] | + + + | Home Phone [...] Providers + +------+ + | Care Freight Trucker Name | Role | Phone | + [...] + + | 09/01/ | Telephone | [facility] | Farrukh Acuna MD | Other | | 2019 | | NEPRHOLOGY [place] | [address] | | | | | [address] | [address] [place], [place] | | | | | [address] [place], [place] | [address] | | | | | [address] | | | | | | [phone] | | | +--------+ + + + [...] [place] | | | | | | [address] | | | | | | | | +--------+---------+ + + + | 12/06/ | Office | Nephrology | Farrukh Acuna MD | | | 2020 | Visit | | [address] [facility] | | | | | | [address] [place], [place] | | | | | | [address] | | | | | | | | +--------+---------+ + + + documented as of this encounter Visit Diagnoses Not on filedocumented in this encounter"
--- OUTSIDE RECORDS SUMMARY | ~2019-10-10 | XMS | Encounter Summary ---
Demographics + + + | Address | [address] | | | [place] [address] | + + + | Home Phone [...] Team Providers + +------+ + | Care Cattle Sprayer Name | Role | Phone | + +------+ + PCP | Unavailable | + +------+ + Encounter Details +--------+ + + + + | Date | Type | Department | Care Team | Description | +--------+ + + + + | 07/18/ | [facility] | [facility] | Nelson Lutz MD | | | 2002 | Encounter | MED CTR GENERIC OP | [address], [place] | | | | | CONV DEPT [address] | [address] [place] | | | | | [place], | [address] | | | | | [place] [address] | | | | | | [phone] | | | +--------+ + + + [...] [place] | | | | | | [address] | | | | | | | | +--------+---------+ + + + | 12/06/ | Office | Nephrology | Farrukh Acuna MD | | | 2020 | Visit | | [address] [facility] | | | | | | [address] [address] | | | | | | [address] | | | | | | | | +--------+---------+ + + + documented as of this encounter Visit Diagnoses Not on filedocumented in this encounter"
--- OUTSIDE RECORDS SUMMARY | ~2019-10-10 | XMS | Encounter Summary ---
Demographics + + + | Address | [address] | | | [place] [address] | + + + | Home Phone [...] Phone | + + +---------+ + | Chalrotte Andujar | ECON | Unknown | | + + +---------+ + Care Team Providers + +------+ + | Care First Mate Name | Role | Phone | [...] + + | 09/07/ | Telephone | [facility] | Sandy Gomez, | Surgery Appointment | | 2019 | | VASCULAR SURGERY | RN | | | | | [address] | | | | | | [address] | | | | | | [address] | | | | | | [phone] | | | +--------+ + + + [...] [place] | | | | | | [address] | | | | | | | | +--------+---------+ + + + | 12/06/ | Office | Nephrology | Farrukh Acuna MD | | | 2020 | Visit | | [address] [facility] | | | | | | [address] [place] | | | | | | [address] | | | | | | | | +--------+---------+ + + + documented as of this encounter Visit Diagnoses Not on filedocumented in this encounter"
--- OUTSIDE RECORDS SUMMARY | ~2019-10-10 | XMS | Encounter Summary ---
Demographics + + + | Address | [address] | | | [place] [address] | + + + | Home Phone [...] Team Providers + +------+ + | Care Lidar Technician Name | Role | Phone | + +------+ + | Rahul Silva MD | PCP | | + +------+ + Encounter Details +--------+ + + + + | Date | Type | Department | Care Team | Description | +--------+ + + + + | 08/13/ | Orders Only | [facility] | Conversion | | | 2016 | | NEPHROLOGY [place] | Transaction, | | | | | [address] | Provider Unknown | | | | | [address] | | | | | | [address] | (Fax) | | | | | [phone] | | | +--------+ + + + [...] [place] | | | | | | [address] | | | | | | | | +--------+---------+ + + + | 12/06/ | Office | Nephrology | Farrukh Acuna MD | | | 2019 | Visit | | [address] | | | | | | [address] [place] | | | | | | [address] | | | | | | | [...]
--- OUTSIDE RECORDS SUMMARY | ~2019-10-10 | XMS | Encounter Summary ---
Demographics + + + | Address | [address] | | | [place] [address] | + + + | Home Phone [...] Providers + +------+ + | Care Machine Riveter Name | Role | Phone | + +------+ + | Rahul Silva MD | PCP | | + +------+ + Encounter Details +--------+ + + + + | Date | Type | Department | Care Team | Description | +--------+ + + + + | 08/13/ | Orders Only | [facility] | Farrukh Acuna MD | | | 2017 | | NEPHROLOGY [place] | [address] [place] | | | | | [address] [place] | [address] [place], [place] | | | | | [address] [place], [place] | [address] | | | | | [address] | | | | | | [phone] | | | +--------+ + + + [...] [place] | | | | | | [address] | | | | | | | | +--------+---------+ + + + | 12/06/ | Office | Nephrology | Farrukh Acuna MD | | | 2020 | Visit | | [address] | | | | | | [address] [place] | | | | | | [address] | | | | | | | [...] | | | LAB | | | FIJIAN | | | | | + + [...]
--- OUTSIDE RECORDS SUMMARY | ~2019-10-10 | XMS | Encounter Summary ---
Demographics + + + | Address | [address] | | | [place] [address] | + + + | Home Phone [...] Providers + +------+ + | Care Welder Railcar Mechanic Name | Role | Phone | + +------+ + | Rahul Silva MD | PCP | | + +------+ + Encounter Details +--------+ + + + + | Date | Type | Department | Care Team | Description | +--------+ + + + + | 10/10/ | Orders Only | [facility] | Farrukh Acuna MD | | | 2013 | | NEPHROLOGY [place] | [address] [place] | | | | | [address] [place] | [address] [place], [place] | | | | | [address] [place], [place] | [address] | | | | | [address] | | | | | | [phone] | | | +--------+ + + + [...] [place] | | | | | | [address] | | | | | | | | +--------+---------+ + + + | 12/06/ | Office | Nephrology | Farrukh Acuna MD | | | 2019 | Visit | | [address] [place] | | | | | | [address] [place] | | | | | | [address] | | | | | | | [...] | | | LAB | | | SAMMARINESE | | | | | + + [...]
--- OUTSIDE RECORDS SUMMARY | ~2019-10-10 | XMS | Encounter Summary ---
Demographics + + + | Address | [address] | | | [place] [address] | + + + | Home Phone [...] [place] | | | | | [address] | | + + + + + Care Team Providers + +------+ + | Care Tax Compliance Agent Name | Role | Phone | [...] Clinic | | | | | | [facility], [address] | | | | | | [place], [place] | | | | | | [address] | | | | | | [phone] | | | +--------+ + + + [...] as of this encounter Progress Notes Interface, Epic Ambulatory Analysts In - 01/22/2007 3:04 AM PST CLINIC DATE: 06/07/97 NEUROLOGY CLINIC HISTORY OF PRESENT ILLNESS: Mr. Andujar is a 56 year-old male who is being evaluated in the Clinic for problems with balance and tremulousness of both upper extremities. He has been referred to this Clinic by Dr. Valles from [place], [place], and has also previously undergone extensive evaluations in the Neurosurgical Clinic and at Vascular Surgery at [facility]. His most recent hospitalization to [facility] was December 28, 1996, when [...] evaluation in the Pain Management Clinic at [facility] and previous trials of Neurontin and mexiletine hydrochloride apparently appears to have been unsuccessful. Shortly following his December hospitalization at [facility], Mr. Andujar apparently became comatose in January from an accidental overdose of Darvon for which he was admitted to [facility] in [place], [place]. The details pertaining to this hospitalization are currently not available but as per Mr. Andujar, he was in a coma for a six day period and upon recovery noted tremulousness of both upper extremities, worse on his left than on his right. Prior to his hospitalization at [facility] and following his discharge from [facility], he apparently was ambulating with crutches since the stump pain precluded the use of his left lower extremity prosthesis. Since his discharge from [facility], however, he has been experiencing increasing problems with balance and apparently has fallen on several occasions. The head CT-scan that was done at [facility], dated February 07, 1997, reveals a low attenuation area in the left anterior basal ganglia felt to represent a small lacunar infarct, with no other significant abnormality. Mr. Andujar states that during the course of his hospitalization at [facility] he apparently fell on three occasions sustaining occipital head trauma but did not undergo subsequent brain imaging studies. His stay at [facility] lasted two weeks. By his report, [...] Mr. Andujar specifically denies impairment of hand citizen participation specialist, impaired strength in either upper extremity or [...] currently lives in a [facility] in [place], [place]. 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 He currently smokes one-half nbhk-yej-vkj since age 23. Denies current alcohol use [...] in turn led to his hospitalization at [facility] in January 1997 for coma at [...] procedures for pain relief. Michelle Landon M.D. Cabinet Abrasive Sandblaster, Neurology GN:fermin C: 06/28/97 cc: RUBIA VALLES MD [address] [facility] [address] Alina Moise M.D. Professor and County Judge, Division of Neurosurgery Robert Carlson M.D. Professor, Vascular Surgery documented in this encounter Plan of Treatment Not on filedocumented as of this encounter Visit Diagnoses Not on filedocumented in this encounter"
--- OUTSIDE RECORDS SUMMARY | ~2019-10-10 | XMS | Encounter Summary ---
Demographics + + + | Address | [address] | | | [place] [address] | + + + | Home Phone [...] [place] | | | | | [address] | | + + + + + Care Team Providers + +------+ + | Care Receiving Distribution Station Operator Name | Role | Phone | + +------+ + PCP | Unavailable | + +------+ + Encounter Details +--------+ + + + + | Date | Type | Department | Care Team | Description | +--------+ + + + + | 08/05/ | Transcribed | Allergy Clinic at | [place], Other | Transcribed | | 1995 | | [facility] [address] | | | | | | [address] | | | | | | Mailcode: [id number] [address] | | | | | | [place] | | | | | | [place], | | | | | | [place] [address] | | | | | | [phone] | | | +--------+ + + + [...] as of this encounter Progress Notes Interface, Report Clerk In - 02/17/2007 3:02 AM PDT [address] [address] or August 05, 1996 RUBIA VALLES MD [address] [facility] [address] RE:PORFIRIO ZAVALA MR#:[id number] Valles: Mr. Porfirio Zavala returned to the [facility] Neurosurgery Clinic today for a followup visit. 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 Mr. Zavala has failed numerous femoral nerve blocks, sciatic nerve blocks, and spinal cord blocks, and was at one time enrolled in the [facility] Pain Clinic. Mr. Zavala's pain [...] dictating for: Alina Moise M.D. Professor and Visor Installer, Division of Neurosurgery MARYANA/sajan cc: Seven Khan, Ph.D. Clinical Psychologist-Neuropsychologist documented in this encounter Plan of Treatment Not on filedocumented as of this encounter Visit Diagnoses Not on filedocumented in this encounter"
--- OUTSIDE RECORDS SUMMARY | ~2019-10-10 | XMS | Encounter Summary ---
Demographics + + + | Address | [address] | | | [place] [address] | + + + | Home Phone [...] + | 03/24/ | Orders Only | [facility] | Farrukh Acuna MD | | | 2017 | | NEPHROLOGY [place] | [address] [place] | | | | | [address] [place] | [address] [place], [place] | | | | | [address] [place], [place] | [address] | | | | | [address] | | | | | | [phone] | | | +--------+ + + + [...] [place] | | | | | | [address] | | | | | | | | +--------+---------+ + + + | 12/06/ | Office | Nephrology | Farrukh Acuna MD | | | 2020 | Visit | | [address] [place] | | | | | | [address] [place] | | | | | | [address] | | | | | | | [...]
--- OUTSIDE RECORDS SUMMARY | ~2019-10-10 | XMS | Encounter Summary ---
Demographics + + + | Address | [address] | | | [place] [address] | + + + | Home Phone [...] Team Providers + +------+ + | Care Crm Manager Name | Role | Phone | [...] + + | 09/13/ | Telephone | [facility] | Terri Aguilar, | Follow-up | | 2018 | | VASCULAR SURGERY | Coating Line Worker | | | | | [address] | | | | | | [facility] [place] | | | | | | [address] | | | | | | [phone] | | | +--------+ + + + [...] [place] | | | | | | [address] | | | | | | | | +--------+---------+ + + + | 12/06/ | Office | Nephrology | Farrukh Acuna MD | | | 2019 | Visit | | [address] [facility] | | | | | | [facility] | | | | | | [address] | | | | | | | | +--------+---------+ + + + documented as of this encounter Visit Diagnoses Not on filedocumented in this encounter"
--- OUTSIDE RECORDS SUMMARY | ~2019-10-10 | XMS | Clinical Summary ---
Demographics + + + | Address | [address] | | | [place] [address] | + + + | Home Phone [...] Providers + +------+ + | Care Carbon Paper Interleafer Name | Role | Phone | + [...] automatically from request for surgery | | [id number] | + + + + + | [...] & Plan: Controlled on current | | [age]qip[age]uyu38 yr old male with COPD, current heavy [...] | ([facility]) | +--------+ [...] | | | ([facility]); CKD (chronic | | [...] | | | ([facility]); Essential | | | | | | hypertension; Iron | | | | | | deficiency; | | | | | | Secondary | | | | | | hyperparathyroidism | | | | | | ([facility]); Type 2 | | [...] Abdi | | | | | | River Rafting Guide | | +--------+ + + + + [...] | 08/24/19) | | | | | River Rafting Guide | | +--------+ + + + + | 09/13/ | Telephone | Vascular Surgery | Terri Aguilar, | Follow-up | | 2018 | | | Chief Mate | | +--------+ + + + + [...] Abdi | | | | | | River Rafting Guide | | +--------+ + + + + [...] Encounter | | | renal disease) ([facility]) | +--------+ [...] | | | ([facility]); Stage 5 | | | | | | chronic kidney | | | | | | disease not on | | | | | | chronic dialysis | | | | | | ([facility]); Secondary | | | | | | hyperparathyroidism | | | | | | ([facility]); Hypertension, | | | | | | unspecified type | +--------+ + + + + | 07/27/ | Orders Only | Nephrology | Farrukh Acuna MD | Chronic kidney | | 2018 | | | | disease, stage IV | | | | | | (severe) ([facility]); | | | | | | Chronic kidney | | | | | | disease, stage IV | | | | | | (severe) ([facility]); | | | | | [...] | | | ([facility]); Persistent | | | | | | proteinuria | +--------+ + + + + | 07/26/ | Office | Nephrology | Farrukh Acuna MD | Stage 5 chronic | | 2019 | Visit | | | kidney disease not | | | | | | on chronic dialysis | | | | | | ([facility]) (Primary Dx); | | | [...] | | | | stage 5 ([facility]); Iron | | | | | | deficiency | +--------+ + + + + | 07/26/ | Orders Only | Nephrology | Farrukh Acuna MD | Chronic kidney | | 2019 | | | | disease, stage IV | | | | | | (severe) ([facility]); | | | | | | Persistent | | | | | | proteinuria; | | | | | | Secondary | | | | | | hyperparathyroidism | | | | | | of renal origin | | | | | | ([facility]) | +--------+ + + + + | 07/21/ | Documentati | Nephrology | Simon, | Results (07/19/19) | | 2019 | on | | [facility] | | | | | | River Rafting Guide | | +--------+ + + + + | 07/20/ | Orders Only | Nephrology | Farrukh Acuna MD | Anemia of chronic | | 2018 | | | | renal failure, stage | | | | | | 4 (severe) ([facility]) | | | | | | (Primary Dx); Stage | | | | | | 4 chronic kidney | | | | | | disease ([facility]); | | | | | | Family history of | | | | | | hypertension; | | | | | | Secondary | | | | | | hyperparathyroidism | | | | | | ([facility]); Persistent | | | | | | proteinuria | +--------+ + + + + | 07/20/ | Orders Only | Nephrology | Farrukh Acuna MD | Stage 4 chronic | | 2018 | | | | kidney disease ([facility]) | | | | | | (Primary Dx); | | | | | | Persistent | | | | | | proteinuria; | | | | | | Secondary | | | | | | hyperparathyroidism | | | | | | ([facility]) | +--------+ [...] [place] | | | | | | [address] | | | | | | | | +--------+---------+ + + + | 12/06/ | Office | Nephrology | Farrukh Acuna MD | | | 2019 | Visit | | [address] [facility] | | | | | | [facility] | | | | | | [address] | | | | | | | [...] | POC | performed at [facility] | [address]AT[address] | | | | [address];[place], [place] | | | | | | [address] | | | | + + + + + + + + | Specimen | + + | | + + + + + + + | Performing | Address | City/State/Zipcode | Phone Number | | Organization | | | | + + + + + | [facility] | [address] | [place] [address] | [phone] | + + + + + Basic [...] 12 (L)Comment: GFR <60: | >60 | [facility] | | | GFR | CHRONIC [...] | | | | | | MDRD IDIN traceable | | | | | | equation.Testing | | | | | | performed at [facility], [address] | | | | | | [facility], | | | | | | [place] [address] | | | | + + + + + + + + | Specimen | + + | Blood | + + + + + + + | Performing | Address | City/State/Zipcode | Phone Number | | Organization | | | | + + + + + | [facility] | [address] | [place] [address] | [phone] | + + + + + ECG [...] + + | Performing | Address | City/State[facility] | Phone Number | | Organization [...] +--------+ +---------+--------+ | MEDICARE | MEDICA | [id number] | 07/01/20 | [phone] | | Medica | | | RE | | 05-Pre | 5 | | re | | | PART A | | sent | | | | | | AND B | | | | | | + +--------+ +--------+ +---------+--------+ | [employer] | MODA | [id number] | 07/04/20 | [phone] | | Medica | | MEDICAID HMO | HEALTH | | 19-Pre | 1 | | id | | | MDCD | | sent | | | | | | [place] | | | | | | + +--------+ +--------+ +---------+--------+ | MEDICAID [place] | MEDICA | [id number] | | [phone] | | Medica | | | ID [...] Arturo | al/Fam | | 1940 | [phone] | [place] | | | chula | | | 1 (Home) | [address] | + +--------+ +--------+ + + | Kavon Andujar | Person | Self | [birth year] | [address] | | Arturo | irving/Scott | | 1940 | [phone] | [place] | | | [place] | | | 1 (Home) | [address] | + +--------+ +--------+ + + Advance Directives + + + + + | Type | Date Recorded | Patient | Explanation | | | | Engineer Steam | | + + + + + | Power of | | | | | Supply Requirements Officer | | | | + + + [...]
--- OUTSIDE RECORDS SUMMARY | ~2019-10-10 | XMS | Encounter Summary ---
Demographics + + + | Address | [address] | | | [place] [address] | + + + | Home Phone [...] Providers + +------+ + | Care Diesel Engineer Name | Role | Phone | [...] | | | [address] | [address] | (HCC) (Primary Dx); | | | | [place], [place] | | Edema of lower | | | | [address] | | extremity; Tobacco | | | | [phone] | | dependence syndrome; | | | [...] Also: I see no need for acute STONE SETTER APPRENTICE. I see no need to send him [...] Notes by Farrukh Acuna MD at 05/31/19 7730 Author: Farrukh Acuna MD Service: (none) Author Type: Physician Filed: 05/31/19 1232 Encounter Date: 05/31/2019 Status: Signed Technician Inventory Specialist: Farrukh Acuna MD (Physician) Patient Active Problem [...] 10/2016 with severe pneumonia, severe ZEKE; needed STONE SETTER APPRENTICE for ~5 weeks b efore renal function [...] 19.5 (A) 05/27/2019 LABPROT 2,445.6 (A) 03/01/2019 [id number] 10/08/2018 Assessment: Mr. Andujar is a 78 y.o. male patient with stage IV CKD on a background of diabetes & hypert ension and recent hospitalization for C-diff and hehydration. The most likely pathology here is that of diabetic nephropathy +/- hypertensive nephrosclerosis/arteriolosclerosis. He was hospitalized in 10/2016 with severe pneumonia, severe ZEKE; needed STONE SETTER APPRENTICE for ~5 weeks b efore renal function [...] Also: I see no need for acute STONE SETTER APPRENTICE. I see no need to send him [...] [place] | | | | | | [address] | | | | | | | [...]
--- OUTSIDE RECORDS SUMMARY | ~2019-10-10 | XMS | Encounter Summary ---
Demographics + + + | Address | [address] | | | [place] [address] | + + + | Home Phone [...] Team Providers + +------+ + | Care Refrigeration Engineering Teacher Name | Role | Phone [...] | [facility] | MD Joshua | [facility] | | | | CLINICAL DECISION | [address] | | | 05/29/ | | [address] | [address] [place], [place] | | | 2002 | | [place], [place] | [address] | | | | | [address] | [phone] | | | | | [phone] | | | +--------+ + + + [...] | | | | | | [place] [address] [place] | | | | | | [address] | | | | | | | | +--------+---------+ + + + | 12/06/ | Office | Nephrology | Farrukh Acuna MD | | | 2019 | Visit | | [address] [facility] | | | | | | [address] [place] | | | | | | [address] | | | | | | | | +--------+---------+ + + + documented as of this encounter Visit Diagnoses + + | Diagnosis | + + | Coronary atherosclerosis of kashia coronary artery | + + documented in this encounter"
--- OUTSIDE RECORDS SUMMARY | ~2019-10-10 | XMS | Encounter Summary ---
Demographics + + + | Address | [address] | | | [place] [address] | + + + | Home Phone [...] Providers + +------+ + | Care Gold Tooler Name | Role | Phone | + [...] [address] | | | | | [place], [place] | [place], [place] | | | | | [address] | [address] | | | | | [phone] | [phone] | | | | | | | [...] [place] | | | | | | [address] | | | | | | | | +--------+---------+ + + + | 12/06/ | Office | Nephrology | Farrukh Acuna MD | | | 2019 | Visit | | [address] [facility] | | | | | | [address] [place] | | | | | | [address] | | | | | | | [...]
--- OUTSIDE RECORDS SUMMARY | ~2019-10-10 | XMS | Encounter Summary ---
Demographics + + + | Address | [address] | | | [place] [address] | + + + | Home Phone [...] | [facility] | | | and [...] Team Providers + +------+ + | Care Netsuite Consultant Name | Role | Phone | [...] + + | 09/10/ | Anesthesia | [facility] | Venkata Carroll | | | 2019 | [facility] | [address] | | | | | OPERATING ROOM [address] | [address] | | | | | [address] | [place] [address] | | | | | [place], [place] | [phone] | | | | | [address] | | | | | | [phone] | | | +--------+ + + + + Anesthesia Record + + + + + | Procedure Name | Responsible | Anesthesia Start | Anesthesia Stop Time | | | Anesthesiologist | Time | | + + + + + | INSERTION AV FISTULA | Venkata Carroll, | 09/10/19 1307 | 09/10/19 1401 | | (Right BBF) (Right | TRANSFUSION NURSE | | | | Arm Upper) | [...] 09/10/19 1600 by | | amor | zkro-owk-cvhgdb catheter system; | Trinidad Ramírez | Leana [...] [place] | | | | | | [address] | | | | | | | | +--------+---------+ + + + | 12/06/ | Office | Nephrology | Farrukh Acuna MD | | | 2019 | Visit | | [address] [place] | | | | | | [address] [place] | | | | | | [address] | | | | | | | [...]
--- OUTSIDE RECORDS SUMMARY | ~2019-10-10 | XMS | Encounter Summary ---
Demographics + + + | Address | [address] | | | [place] [address] | + + + | Home Phone [...] Team Providers + +------+ + | Care Doctor Of Podiatry Name | Role | Phone | + +------+ + | Rahul Silva MD | PCP | | + +------+ + Encounter Details +--------+ + + + + | Date | Type | Department | Care Team | Description | +--------+ + + + + | 12/16/ | Orders Only | [facility] | Conversion | | | 2016 | | NEPHROLOGY [place] | Transaction, | | | | | [address] | Provider Unknown | | | | | [address] [place] | | | | | | [address] | (Fax) | | | | | [phone] | | | +--------+ + + + [...] [place] | | | | | | [address] | | | | | | | | +--------+---------+ + + + | 12/06/ | Office | Nephrology | Farrukh Acuna MD | | | 2019 | Visit | | [address] | | | | | | [address] [place] | | | | | | [address] | | | | | | | [...]
--- OUTSIDE RECORDS SUMMARY | ~2019-10-10 | XMS | Encounter Summary ---
Demographics + + + | Address | [address] | | | [place] [address] | + + + | Home Phone [...] Team Providers + +------+ + | Care Brickmason Apprentice Name | Role | Phone | [...] [place] | | | | | [place], [place] | [place], [place] | | | | | [address] | [address] | | | | | [phone] | [phone] | | | | | | | [...] [place] | | | | | | [address] | | | | | | | | +--------+---------+ + + + | 12/06/ | Office | Nephrology | Farrukh Acuna MD | | | 2019 | Visit | | [address] [facility] | | | | | | [address] [place] | | | | | | [address] | | | | | | | [...]
--- OUTSIDE RECORDS SUMMARY | ~2019-10-10 | XMS | Encounter Summary ---
Demographics + + + | Address | [address] | | | [place] [address] | + + + | Home Phone [...] + +------+ + | Care Broaching Machine Operator Name | Role | Phone [...] + | 08/25/ | Telephone | [facility] | Brian Orosco MD | New Patient (08/26 | | 2019 | | VASCULAR SURGERY | [address] | appointment) | | | | [address] [place] | [place], [place] | | | | | [place], [place] | [address] | | | | | [address] | [phone] | | | | | [phone] | | | +--------+ + + + [...] [place] | | | | | | [address] | | | | | | | | +--------+---------+ + + + | 12/06/ | Office | Nephrology | Farrukh Acuna MD | | | 2020 | Visit | | [address] [facility] | | | | | | [address] [place] | | | | | | [address] | | | | | | | | +--------+---------+ + + + documented as of this encounter Visit Diagnoses Not on filedocumented in this encounter"
--- OUTSIDE RECORDS SUMMARY | ~2019-10-10 | XMS | Encounter Summary ---
Demographics + + + | Address | [address] | | | [place] [address] | + + + | Home Phone [...] [place] | | | | | [address] | | + + + + + [...] | 1992 | Only | Lab at [facility] [address] | [address] | | | | | [address] | [place], | | | | | Mailcode: [id number] | [place] [address] | | | | | [address] | [phone] | | | | | [place], [place] | | | | | | [address] | | | | | | [phone] | | | +--------+ + + + [...] | | | | | | a [place]-Lupe catheter | | | | | | [...] | | | | placement of a [place]-Lupe | | | | | | catheter. CHEST, | | | | | | SINGLE AP PORTABLE: | | | | | | 03-31-93 AT 1000 HOURS | | | | | | FINDINGS: Since the | | | | | | prior study, the | | | | | | [place]-Lupe catheter has | | | | | [...] IMPRESSION: | | | | | | [place]-Lupe catheter | | | | | | [...] The | | | | | | [place]-Lupe catheter | | | | | | [...] and | | | | | | Berrysburg-Lupe catheter | | | | | | [...] endotracheal | | | | | | tube,[place]-Lupe catheter | | | | | | [...] | + +---------+ + + | [facility] DEPARTMENT OF | | | | [...] + + + | [facility] | [address] | [place] [address] | | | PATHOLOGY | [address] | | | + + + + + documented in this encounter Visit Diagnoses Not on filedocumented in this encounter"
--- OUTSIDE RECORDS SUMMARY | ~2019-10-10 | XMS | Encounter Summary ---
Demographics + + + | Address | [address] | | | [place] [address] | + + + | Home Phone [...] + +------+ + | Care Human Services Care Specialist Name | Role | Phone | + +------+ + | Rahul Silva MD | PCP | | + +------+ + Encounter Details +--------+ + + + + | Date | Type | Department | Care Team | Description | +--------+ + + + + | 10/27/ | Orders Only | [facility] | Conversion | | | 2016 | | NEPHROLOGY [place] | Transaction, | | | | | [address] | Provider Unknown | | | | | [address] [place] | | | | | | [address] | (Fax) | | | | | [phone] | | | +--------+ + + + [...] [place] | | | | | | [address] | | | | | | | | +--------+---------+ + + + | 12/06/ | Office | Nephrology | Farrukh Acuna MD | | | 2019 | Visit | | [address] | | | | | | [address] [place] | | | | | | [address] | | | | | | | [...]
--- OUTSIDE RECORDS SUMMARY | ~2019-10-10 | XMS | Encounter Summary ---
Demographics + + + | Address | [address] | | | [place] [address] | + + + | Home Phone [...] Team Providers + +------+ + | Care Av Specialist Name | Role | Phone | + +------+ + | Rahul Silva MD | PCP | | + +------+ + Encounter Details +--------+ + + + + | Date | Type | Department | Care Team | Description | +--------+ + + + + | 10/08/ | Orders Only | [facility] | Farrukh Acuna MD | | | 2018 | | NEPHROLOGY [place] | [address] [place] | | | | | [address] [place] | [address] [place], [place] | | | | | [address] [place], [place] | [address] | | | | | [address] | | | | | | [phone] | | | +--------+ + + + [...] [place] | | | | | | [address] | | | | | | | | +--------+---------+ + + + | 12/06/ | Office | Nephrology | Farrukh Acuna MD | | | 2020 | Visit | | [address] [place] | | | | | | [address] [place] | | | | | | [address] | | | | | | | [...]
--- OUTSIDE RECORDS SUMMARY | ~2019-10-10 | XMS | Encounter Summary ---
Demographics + + + | Address | [address] | | | [place] [address] | + + + | Home Phone [...] Providers + +------+ + | Care Report Checker Name | Role | Phone | + +------+ + PCP | Unavailable | + +------+ + Encounter Details +--------+ + + + + | Date | Type | Department | Care Team | Description | +--------+ + + + + | 05/28/ | Hospital | [facility] | Elisabeth, | CORON ATHEROSCL | | 2002 - | Encounter | [facility] | MD Joshua | [place] [facility] | | | | CLINICAL DECISION | [address] [place] | | | 05/29/ | | [address] | [address] [place], [place] | | | 2002 | | [place], [place] | [address] | | | | | [address] | [phone] | | | | | [phone] | | | +--------+ + + + [...] | | | | [place] | | | | | | [address] | | | | | | | | +--------+---------+ + + + | 12/06/ | Office | Nephrology | Farrukh Acuna MD | | | 2019 | Visit | | [facility] [facility] | | | | | | [address] [place] | | | | | | [address] | | | | | | | | +--------+---------+ + + + documented as of this encounter Visit Diagnoses + + | Diagnosis | + + | Coronary atherosclerosis of [place] coronary artery | + + documented in this encounter"
--- OUTSIDE RECORDS SUMMARY | ~2019-10-10 | XMS | Encounter Summary ---
Demographics + + + | Address | [address] | | | [place] [address] | + + + | Home Phone [...] Team Providers + +------+ + | Care Broadcast Maintenance Engineer Name | Role | Phone | [...] [address] | | | | | [place], [place] | [place], [place] | | | | | [address] | [address] | | | | | [phone] | [phone] | | | | | | | [...] [place] | | | | | | [address] | | | | | | | | +--------+---------+ + + + | 12/06/ | Office | Nephrology | Farrukh Acuna MD | | | 2019 | Visit | | [address] [facility] [place] | | | | | | [address] [place] | | | | | | [address] | | | | | | | [...] | + + + | Attending/Visit Provider: ATE MD, LEONORA, , , , , EH, [...]
--- OUTSIDE RECORDS SUMMARY | ~2019-10-10 | XMS | Encounter Summary ---
Demographics + + + | Address | [address] | | | [place] [address] | + + + | Home Phone [...] [place] | | | | | [address] | | + + + + + Care Team Providers + +------+ + | Care Wind Turbine Service Technician Name | Role | Phone [...] Rd | | | | | | [place] | | | | | | [address] | | | +--------+ + + + [...] as of this encounter Discharge Summaries Interface, Employee Placement Specialist In - 04/01/2007 5:08 AM PDT [address] [address] [facility] MEDICAL SUMMARY OF HOSPITALIZATION Med Rec No.: [...] KNAPP MD [address] [facility] [address] documented in this encounter Plan of Treatment Not on filedocumented as of this encounter Visit Diagnoses Not on filedocumented in this encounter"
--- OUTSIDE RECORDS SUMMARY | ~2019-10-10 | XMS | Encounter Summary ---
Demographics + + + | Address | [address] | | | [place] [address] | + + + | Home Phone [...] Providers + +------+ + | Care Elementary Education Tutor Name | Role | Phone | [...] POPLAR | (cancellation) | | | | [place], | [place], [place] | | | | | [place] [address] | [address] | | | | | [phone] | | | +--------+ + + + [...] [place] | | | | | | [address] | | | | | | | | +--------+---------+ + + + | 12/06/ | Office | Nephrology | Farrukh Acuna MD | | | 2019 | Visit | | [address] | | | | | | [address] [place] | | | | | | [address] | | | | | | | | +--------+---------+ + + + documented as of this encounter Visit Diagnoses Not on filedocumented in this encounter"
--- OUTSIDE RECORDS SUMMARY | ~2019-10-10 | XMS | Encounter Summary ---
Demographics + + + | Address | [address] | | | [place] [address] | + + + | Home Phone [...] Team Providers + +------+ + | Care Drug Safety Associate Name | Role | Phone | + +------+ + | Rahul Silva MD | PCP | | + +------+ + Encounter Details +--------+ + + + + | Date | Type | Department | Care Team | Description | +--------+ + + + + | 10/03/ | Orders Only | [facility] | Conversion | | | 2015 | | NEPRHOLOGY [place] | Transaction, | | | | | [address] | Provider Unknown | | | | | [address] [place], [place] | [phone] | | | | | [phone] | (Fax) | | | | | [phone] | | | +--------+ + + + [...] [place] | | | | | | [address] | | | | | | | | +--------+---------+ + + + | 12/06/ | Office | Nephrology | Farrukh Acuna MD | | | 2019 | Visit | | [address] [place] | | | | | | [address] [place] | | | | | | [address] | | | | | | | [...]
--- OUTSIDE RECORDS SUMMARY | ~2019-10-10 | XMS | Encounter Summary ---
Demographics + + + | Address | [address] | | | [place] [address] | + + + | Home Phone [...] Providers + +------+ + | Care Commercial Sales Manager Name | Role | Phone [...] [address] | | | | | [place], [place] | [place], [place] | | | | | [address] | [address] | | | | | [phone] | [phone] | | | | | | | [...] [place] | | | | | | [address] | | | | | | | | +--------+---------+ + + + | 12/06/ | Office | Nephrology | Farrukh Acuna MD | | | 2019 | Visit | | [address] [facility] [place] | | | | | | [address] [place] | | | | | | [address] | | | | | | | [...]
--- OUTSIDE RECORDS SUMMARY | ~2019-10-10 | XMS | Encounter Summary ---
Demographics + + + | Address | [address] | | | [place] [address] | + + + | Home Phone [...] Providers + +------+ + | Care Packaging Sales Consultant Name | Role | Phone | + +------+ + | Rahul Silva MD | PCP | | + +------+ + Encounter Details +--------+ + + + + | Date | Type | Department | Care Team | Description | +--------+ + + + + | 07/11/ | Orders Only | [facility] | Farrukh Acuna MD | | | 2013 | | NEPHROLOGY [place] | [address] [place] | | | | | [address] [place] | [address] [place], [place] | | | | | [address] [place], [place] | [address] | | | | | [address] | | | | | | [phone] | | | +--------+ + + + [...] [place] | | | | | | [address] | | | | | | | | +--------+---------+ + + + | 12/06/ | Office | Nephrology | Farrukh Acuna MD | | | 2019 | Visit | | [address] [place] | | | | | | [address] [place] | | | | | | [address] | | | | | | | [...]
--- OUTSIDE RECORDS SUMMARY | ~2019-10-10 | XMS | Encounter Summary ---
Demographics + + + | Address | [address] | | | [place] [address] | + + + | Home Phone [...] Team Providers + +------+ + | Care Costumer Name | Role | Phone | + +------+ + | Rahul Silva MD | PCP | | + +------+ + Encounter Details +--------+ + + + + | Date | Type | Department | Care Team | Description | +--------+ + + + + | 08/19/ | Orders Only | [facility] | Conversion | | | 2017 | | NEPHROLOGY [place] | Transaction, | | | | | [address] [place] | Provider Unknown | | | | | [address] [place] | | | | | | [address] | (Fax) | | | | | [phone] | | | +--------+ + + + [...] [place] | | | | | | [address] | | | | | | | | +--------+---------+ + + + | 12/06/ | Office | Nephrology | Farrukh Acuna MD | | | 2019 | Visit | | [address] [place] | | | | | | [address] [place] | | | | | | [address] | | | | | | | [...]
--- OUTSIDE RECORDS SUMMARY | ~2019-10-10 | XMS | Encounter Summary ---
Demographics + + + | Address | [address] | | | [place] [address] | + + + | Home Phone [...] Providers + +------+ + | Care Machine Skiver Name | Role | Phone | + [...] + + | 09/17/ | Documentati | [facility] | Oly Alvarenga | Labs Only ([facility] | | 2019 | on | NEPRHOLOGY [place] | V, Medical | 08/24/19) | | | | [address] | Assembler Camper | | | | | [address] [place], [place] | | | | | | [address] | | | | | | [phone] | | | +--------+ + + + [...] [place] | | | | | | [address] | | | | | | | | +--------+---------+ + + + | 12/06/ | Office | Nephrology | Farrukh Acuna MD | | | 2019 | Visit | | [address] [facility] | | | | | | [address] [place], [place] | | | | | | [address] | | | | | | | [...] + + + | REFERENCE LAB | [address] [facility] | [place] [address] | [phone] | | [facility] | | | | + + + + + documented in this encounter Visit Diagnoses Not on filedocumented in this encounter"
--- OUTSIDE RECORDS SUMMARY | ~2019-10-10 | XMS | Encounter Summary ---
Demographics + + + | Address | [address] | | | [place] [address] | + + + | Home Phone [...] Providers + +------+ + | Care Senior Mobile Application Developer Name | Role | Phone [...] | Transaction, | | | | | [place], [place] | Provider Unknown | | | | | [address] | | | | | | [phone] | | | +--------+ + + + [...] [place] | | | | | | [address] | | | | | | | | +--------+---------+ + + + | 12/06/ | Office | Nephrology | Farrukh Acuna MD | | | 2019 | Visit | | [address] [facility] [place] | | | | | | [address] [place] | | | | | | [address] | | | | | | | [...]
--- OUTSIDE RECORDS SUMMARY | ~2019-10-10 | XMS | Encounter Summary ---
Demographics + + + | Address | [address] | | | [place] [address] | + + + | Home Phone [...] Providers + +------+ + | Care Pot Pusher Name | Role | Phone | + [...] [address] [place] | [place], [place] | | | | | [place], [place] | [address] | | | | | [address] | [phone] | | | | | [phone] | | | +--------+ + + + [...] | | | | | [place] | | | | | | [address] | | | | | | | | +--------+---------+ + + + | 12/06/ | Office | Nephrology | Farrukh Acuna MD | | | 2020 | Visit | | [address] [facility] | | | | | | [address] [place] | | | | | | [address] | | | | | | | | +--------+---------+ + + + documented as of this encounter Visit Diagnoses Not on filedocumented in this encounter"
--- OUTSIDE RECORDS SUMMARY | ~2019-10-10 | XMS | Encounter Summary ---
Demographics + + + | Address | [address] | | | [place] [address] | + + + | Home Phone [...] Team Providers + +------+ + | Care Pressure Dispatcher Name | Role | Phone | [...] [address] | | | | | [place], [place] | [place], [place] | | | | | [address] | [address] | | | | | [phone] | [phone] | | | | | | | [...] [place] | | | | | | [address] | | | | | | | | +--------+---------+ + + + | 12/06/ | Office | Nephrology | Farrukh Acuna MD | | | 2019 | Visit | | [address] [facility] | | | | | | [address] [place] | | | | | | [address] | | | | | | | [...]
--- OUTSIDE RECORDS SUMMARY | ~2019-10-10 | XMS | Encounter Summary ---
Demographics + + + | Address | [address] | | | [place] [address] | + + + | Home Phone [...] Providers + +------+ + | Care Logistics Director Name | Role | Phone | + +------+ + | Rahul Silva MD | PCP | | + +------+ + Encounter Details +--------+ + + + + | Date | Type | Department | Care Team | Description | +--------+ + + + + | 10/01/ | Telephone | [facility] | Farrukh Acuna MD | | | 2018 | | NEPHFLORES [place] | [address] [facility] [place] | | | | | [address] | [address] [place], [place] | | | | | [place] | [address] | | | | | [address] | | | | | | [phone] | | | +--------+ + + + [...] [place] | | | | | | [address] | | | | | | | | +--------+---------+ + + + | 12/06/ | Office | Nephrology | Farrukh Acuna MD | | | 2019 | Visit | | [address] [facility] [address] [place] | | | | | | [address] [place] | | | | | | [address] | | | | | | | | +--------+---------+ + + + documented as of this encounter Visit Diagnoses Not on filedocumented in this encounter"
--- OUTSIDE RECORDS SUMMARY | ~2019-10-10 | XMS | Encounter Summary ---
Demographics + + + | Address | [address] | | | [place] [address] | + + + | Home Phone [...] [place] | | | | | [address] | | + + + + + Care Team Providers + +------+ + | Care Crime Victim Specialist Name | Role | Phone | [...] Pavilion | | | | | | [place], [place] | | | | | | [address] | | | | | | [phone] | | | +--------+ + + + [...]
--- OUTSIDE RECORDS SUMMARY | ~2019-10-10 | XMS | Encounter Summary ---
Demographics + + + | Address | [address] | | | [place] [address] | + + + | Home Phone [...] + | 02/15/ | Orders Only | [facility] | Conversion | | | 2019 | | NEPHROLOGY [place] | Transaction, | | | | | [address] [place] | Provider Unknown | | | | | [address] [place] | | | | | | [address] | (Fax) | | | | | [phone] | | | +--------+ + + + [...] [place] | | | | | | [address] | | | | | | | | +--------+---------+ + + + | 12/06/ | Office | Nephrology | Farrukh Acuna MD | | | 2019 | Visit | | [address] [place] | | | | | | [address] [place] | | | | | | [address] [...]
--- OUTSIDE RECORDS SUMMARY | ~2019-10-10 | XMS | Encounter Summary ---
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
--- OUTSIDE RECORDS SUMMARY | ~2019-10-10 | XMS | Encounter Summary ---
Demographics + + + | Address | [address] | | | [place] [address] | + + + | Home Phone [...] Team Providers + +------+ + | Care Gymnasium Teacher Name | Role | Phone | + +------+ + | Rahul Silva MD | PCP | | + +------+ + Encounter Details +--------+ + + + + | Date | Type | Department | Care Team | Description | +--------+ + + + + | 10/28/ | Orders Only | [facility] | Conversion | | | 2016 | | NEPHROLOGY [place] | Transaction, | | | | | [address] [place] | Provider Unknown | | | | | [address] [place] | | | | | | [address] | (Fax) | | | | | [phone] | | | +--------+ + + + [...] [place] | | | | | | [address] | | | | | | | [...]
--- OUTSIDE RECORDS SUMMARY | ~2019-10-10 | XMS | Encounter Summary ---
Demographics + + + | Address | [address] | | | [place] [address] | + + + | Home Phone [...] +------+ + | Care High School Music Director Name | Role | Phone | [...] + + | 09/01/ | Telephone | [facility] | Brian Orosco MD | Advice Only | | 2019 | | VASCULAR SURGERY | [address] | (surgery) | | | | [address] [place] | [place], [place] | | | | | [place], [place] | [address] | | | | | [address] | [phone] | | | | | [phone] | | | +--------+ + + + [...] [place] | | | | | | [address] | | | | | | | | +--------+---------+ + + + | 12/06/ | Office | Nephrology | Farrukh Acuna MD | | | 2020 | Visit | | [address] [facility] | | | | | | [facility] | | | | | | [address] | | | | | | | | +--------+---------+ + + + documented as of this encounter Visit Diagnoses Not on filedocumented in this encounter"
--- OUTSIDE RECORDS SUMMARY | ~2019-10-10 | XMS | Encounter Summary ---
Demographics + + + | Address | [address] | | | [place] [address] | + + + | Home Phone [...] Providers + +------+ + | Care Salesperson Parts Name | Role | Phone | [...] + + | 09/23/ | Telephone | [facility] | Brian Orosco MD | Advice Only | | 2019 | | VASCULAR SURGERY | [address] | | | | | [address] [place] | [place], [place] | | | | | [place], [place] | [address] | | | | | [address] | [phone] | | | | | [phone] | | | +--------+ + + + [...] [place] | | | | | | [address] | | | | | | | | +--------+---------+ + + + | 12/06/ | Office | Nephrology | Farrukh Acuna MD | | | 2020 | Visit | | [address] [facility] | | | | | | [address] [place] | | | | | | [address] | | | | | | | | +--------+---------+ + + + documented as of this encounter Visit Diagnoses Not on filedocumented in this encounter"
--- OUTSIDE RECORDS SUMMARY | ~2019-10-10 | XMS | Encounter Summary ---
Demographics + + + | Address | [address] | | | [place] [address] | + + + | Home Phone [...] Team Providers + +------+ + | Care Streets And Buildings Decorator Name | Role | Phone | + +------+ + | Rahul Silva MD | PCP | | + +------+ + Encounter Details +--------+ + + + + | Date | Type | Department | Care Team | Description | +--------+ + + + + | 11/10/ | Orders Only | [facility] | Conversion | | | 2017 | | NEPHROLOGY [place] | Transaction, | | | | | [address] [place] | Provider Unknown | | | | | [address] [place] | | | | | | [address] | (Fax) | | | | | [phone] | | | +--------+ + + + [...] [place] | | | | | | [address] | | | | | | | | +--------+---------+ + + + | 12/06/ | Office | Nephrology | Farrukh Acuna MD | | | 2019 | Visit | | [address] | | | | | | [address] [place] | | | | | | [address] | | | | | | | [...]
--- OUTSIDE RECORDS SUMMARY | ~2019-10-10 | XMS | Encounter Summary ---
Demographics + + + | Address | [address] | | | [place] [address] | + + + | Home Phone [...] Providers + +------+ + | Care Regulatory Manager Name | Role | Phone | [...] + + | 09/23/ | Telephone | [facility] | Brian Orosco MD | Advice Only | | 2019 | | VASCULAR SURGERY | [address] | | | | | [address] [place] | [place], [place] | | | | | [place], [place] | [address] | | | | | [address] | [phone] | | | | | [phone] | | | +--------+ + + + [...] [place] | | | | | | [address] | | | | | | | | +--------+---------+ + + + | 12/06/ | Office | Nephrology | Farrukh Acuna MD | | | 2020 | Visit | | [address] [facility] | | | | | | [address] [place] | | | | | | [address] | | | | | | | | +--------+---------+ + + + documented as of this encounter Visit Diagnoses Not on filedocumented in this encounter"
--- OUTSIDE RECORDS SUMMARY | ~2019-10-10 | XMS | Encounter Summary ---
Demographics + + + | Address | [address] | | | [place] [address] | + + + | Home Phone [...] Team Providers + +------+ + | Care Siphon Operator Name | Role | Phone | [...] + + | 08/10/ | Telephone | [facility] | Brian Orosco MD | Other (orders ) | | 2019 | | VASCULAR SURGERY | [address] | | | | | [address] [place] | [place], [place] | | | | | [place], [place] | [address] | | | | | [address] | [phone] | | | | | [phone] | | | +--------+ + + + [...] [place] | | | | | | [address] | | | | | | | | +--------+---------+ + + + | 12/06/ | Office | Nephrology | Farrukh Acuna MD | | | 2020 | Visit | | [address] [facility] | | | | | | [address] [place], [place] | | | | | | [address] | | | | | | | | +--------+---------+ + + + documented as of this encounter Visit Diagnoses Not on filedocumented in this encounter"
--- OUTSIDE RECORDS SUMMARY | ~2019-10-10 | XMS | Encounter Summary ---
Demographics + + + | Address | [address] | | | [place] [address] | [...] [place] | | | | | [address] | | + + + + + Care Team Providers + +------+ + | Care Data Sciences Director Name | Role | Phone | + +------+ + PCP | Unavailable | + +------+ + Encounter Details +--------+ + + + + | Date | Type | Department | Care Team | Description | +--------+ + + + + | 12/22/ | Transcribed | [facility] at | [place], Other | Transcribed | | 1997 | | [facility] [address] | | | | | | [address] | | | | | | Mailcode: OP34 [address] | | | | | | [address] | | | | | | [place], | | | | | | [place] [address] | | | | | | [phone] | | | +--------+ + + + [...] as of this encounter Progress Notes Interface, Tire Building Supervisor In - 01/03/2007 5:08 AM PST [address] [address] Department of Orthopaedics, [facility] [employer] [facility] OP19 December 21, 1997 Jerry Smiley M.D. [address] [place] [id number] RE:Kavon Andujar MR#:[id number] Smiley: Thank [...] at any time that you or Dr. Carlsno might like. Sincerely, Eric Mcclure M.D. Reel Film Inspector, Department of Orthopaedics and Rehabilitation ERICK/sara A documented in this encounter Plan of Treatment Not on filedocumented as of this encounter Visit Diagnoses Not on filedocumented in this encounter"
--- OUTSIDE RECORDS SUMMARY | ~2019-10-10 | XMS | Encounter Summary ---
Demographics + + + | Address | [address] | | | [place] [address] | + + + | Home Phone [...] Providers + +------+ + | Care Personal Lines Appraiser Name | Role | Phone | + +------+ + | Rahul Silva MD | PCP | | + +------+ + Encounter Details +--------+ + + + + | Date | Type | Department | Care Team | Description | +--------+ + + + + | 05/22/ | Orders Only | [facility] | Farrukh Acuna MD | | | 2018 | | NEPHROLOGY [place] | [address] [place] | | | | | [address] [place] | [address] [place], [place] | | | | | [address] [place], [place] | [address] | | | | | [address] | | | | | | [phone] | | | +--------+ + + + [...] [place] | | | | | | [address] | | | | | | | | +--------+---------+ + + + | 12/06/ | Office | Nephrology | Farrukh Acuna MD | | | 2020 | Visit | | [address] | | | | | | [address] [place] | | | | | | [address] | | | | | | | [...]
--- OUTSIDE RECORDS SUMMARY | ~2019-10-10 | XMS | Encounter Summary ---
Demographics + + + | Address | [address] | | | [place] [address] | + + + | Home Phone [...] [place] | | | | | [address] | | + + + + + Care Team Providers + +------+ + | Care Managing Consultant Clinical Professor Name | Role | Phone | [...] Clinic | | | | | | [facility], [address] | | | | | | [place], [place] | | | | | | [address] | | | | | | [phone] | | | +--------+ + + + [...] as of this encounter Progress Notes Interface, Matrix Worker In - 01/09/2007 5:07 AM PST CLINIC DATE: 10/03/97 [facility] - PROGRESS NOTE [...] Vargas D.O. Resident, Anesthesiology Nelson Melara M.D. Rabble Furnace Tender, Anesthesiology [facility] [email or web address] cc: [place] [id number] JESSENIA RODRIGUEZ MD DEPARTMENT OF FAMILY MEDICINE [facility] documented in this encounter Plan of Treatment Not on filedocumented as of this encounter Visit Diagnoses Not on filedocumented in this encounter"
--- OUTSIDE RECORDS SUMMARY | ~2019-10-10 | XMS | Encounter Summary ---
Demographics + + + | Address | [address] | | | [place] [address] | + + + | Home Phone [...] [place] | | | | | [address] | | + + + + + Care Team Providers + +------+ + | Care Risk Modeler Name | Role | Phone | [...] [id number] | | | | | | [place], [place] | | | | | | [address] | | | | | | [phone] | | | +--------+ + + + [...] | + + + + + | [facility] | [address] | [place] [address] | | | PATHOLOGY | [address] [...] | + + + + + | [facility] | [address] | [place] [address] | | | PATHOLOGY | [address] | | | + + + + + documented in this encounter Visit Diagnoses Not on filedocumented in this encounter"
--- OUTSIDE RECORDS SUMMARY | ~2019-10-10 | XMS | Encounter Summary ---
Demographics + + + | Address | [address] | | | [place] [address] | + + + | Home Phone [...] Team Providers + +------+ + | Care Tower Erector Name | Role | Phone | [...] [address] [place] | | | | | [place], [place] | [place], [place] | | | | | [address] | [address] | | | | | [phone] | [phone] | | | | | | | [...] [place] | | | | | | [address] | | | | | | | | +--------+---------+ + + + | 12/06/ | Office | Nephrology | Farrukh Acuna MD | | | 2019 | Visit | | [address] [facility] [place] | | | | | | [address] | | | | | | [address] | | | | | | | [...]
--- OUTSIDE RECORDS SUMMARY | ~2019-10-10 | XMS | Encounter Summary ---
Demographics + + + | Address | [address] | | | [place] [address] | + + + | Home Phone [...] Providers + +------+ + | Care Driver Operator Name | Role | Phone | + +------+ + | Rahul Silva MD | PCP | | + +------+ + Encounter Details +--------+ + + + + | Date | Type | Department | Care Team | Description | +--------+ + + + + | 04/10/ | Orders Only | [facility] | Conversion | | | 2014 | | NEPRHOLOGY [place] | Transaction, | | | | | [address] | Provider Unknown | | | | | [address] [place], [place] | | | | | | [address] | (Fax) | | | | | [phone] | | | +--------+ + + + [...] [place] | | | | | | [address] | | | | | | | | +--------+---------+ + + + | 12/06/ | Office | Nephrology | Farrukh Acuna MD | | | 2019 | Visit | | [address] | | | | | | [address] | | | | | | [address] | | | | | | | [...]
--- OUTSIDE RECORDS SUMMARY | ~2019-10-10 | XMS | Encounter Summary ---
Demographics + + + | Address | [address] | | | [place] [address] | + + + | Home Phone [...] [place] | | | | | [address] | | + + + + + Care Team Providers + +------+ + | Care Tire Bagger Name | Role | Phone | + +------+ + PCP | Unavailable | + +------+ + Encounter Details +--------+ + + + + | Date | Type | Department | Care Team | Description | +--------+ + + + + | 09/09/ | Transcribed | Allergy Clinic at | Oliva, Other | Transcribed | | 1995 | | [facility] [address] | | | | | | [address] | | | | | | Mailcode: [id number] | | | | | | [place] | | | | | | [place], | | | | | | [place] [address] | | | | | | [phone] | | | +--------+ + + + [...] as of this encounter Progress Notes Interface, Photovoltaic Testing Technician In - 02/14/2007 3:12 AM PDT [address] [address] or September 09, 1996 Nestor VALLES MD [address] [place] [id number] RE: PORFIRIO ZAVALA MR#: [id number] Valles: Your patient, Porfirio Zavala, was seen for follow up today in the Neurosurgery Clinic at [facility]. 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 Following our initial evaluation, we recommended [...] Fellow, Neurosurgery Alina Moise M.D. Professor and Operations Inspector, Division of Neurosurgery HECTOR/hiro documented in this encounter Plan of Treatment Not on filedocumented as of this encounter Visit Diagnoses Not on filedocumented in this encounter"
--- OUTSIDE RECORDS SUMMARY | ~2019-10-10 | XMS | Encounter Summary ---
Demographics + + + | Address | [address] | | | [place] [address] | + + + | Home Phone [...] Providers + +------+ + | Care Production Grader Name | Role | Phone | [...] | | | | disease not | [place], | [place], [place] | | | | | on chronic | [place] [address] | [address] | | | | | dialysis | Phone: | Phone: | | | | | ([facility]) | [phone] | [phone] | | | | | Hypertension | Fax: | Fax: | | | | | , | [phone] | [phone] | | | | | unspecified | | | | | | | type | | | + + + + + + + Encounter Details +--------+ + + + + | Date | Type | Department | Care Team | Description | +--------+ + + + + | 07/28/ | Orders Only | [facility] | Farrukh Acuna MD | Iron deficiency | | 2019 | | NEPHROLOGY [place] | [address] [place] | (Primary Dx); Anemia | | | | [address] [place] | [address] [place], [place] | of chronic kidney | | | | [address] [place], [place] | [address] | failure, stage 5 | | | | [address] | | ([facility]); Stage 5 | | | | [phone] | | chronic kidney | | | [...] [place] | | | | | | [address] | | | | | | | | +--------+---------+ + + + | 12/06/ | Office | Nephrology | Farrukh Acuna MD | | | 2019 | Visit | | [address] [facility] [address] | | | | | | [address] [place], [place] | | | | | | [address] | | | | | | | [...] until 07/28/2020 | | | | | ([facility]) Hypertension, | | | | | | [...] | | | ([facility]) Hypertension, | | | | | | unspecified type | | + +------+--------+ + + | Ferritin | Lab | Routin | Iron deficiency | Expected: | | | | e | Anemia of chronic | 09/27/2019, Expires: | | | | | kidney failure, | 07/28/2020 | | | | | stage 5 ([facility]) Stage | | | | | | 5 chronic kidney | | | | | | disease not on | | | | | | chronic dialysis | | | | | | ([facility]) Hypertension, | | | | | | unspecified type | | + +------+--------+ + + | Parathyroid Hormone, | Lab | Routin | Stage 5 chronic | Expected: | | Intact | | e | kidney disease not | 09/27/2019, Expires: | | | | | on chronic dialysis | 07/28/2020 | | | | | ([facility]) Secondary | | | | | | hyperparathyroidism | | | | | | ([facility]) Hypertension, | | | | | | unspecified type | | + +------+--------+ + + + + +--------+ + + | Name | Type | Priori | Associated Diagnoses | Order Schedule | | | | ty | | | + + +--------+ + + | Ambulatory Referral | Outpatient | Routin | Stage 5 chronic | Ordered: 07/28/2019 | | to [facility] | Referral | e [...]
--- OUTSIDE RECORDS SUMMARY | ~2019-10-10 | XMS | Encounter Summary ---
Demographics + + + | Address | [address] | | | [place] [address] | + + + | Home Phone [...] Providers + +------+ + | Care Insulation Hoseman Name | Role | Phone | + [...] + + | 07/30/ | Telephone | [facility] | Brian Orosco MD | Establish Care | | 2019 | | VASCULAR SURGERY | [address] | (Referral) | | | | [address] [place] | [place], [place] | | | | | [place], [place] | [address] | | | | | [address] | [phone] | | | | | [phone] | | | +--------+ + + + [...] | | | | | [place] | | | | | | [address] | | | | | | | | +--------+---------+ + + + | 12/06/ | Office | Nephrology | Farrukh Acuna MD | | | 2020 | Visit | | [address] [facility] | | | | | | [address] | | | | | | [address] | | | | | | | | +--------+---------+ + + + documented as of this encounter Visit Diagnoses Not on filedocumented in this encounter"
--- OUTSIDE RECORDS SUMMARY | ~2019-10-10 | XMS | Encounter Summary ---
Demographics + + + | Address | [address] | | | [place] [address] | + + + | Home Phone [...] [place] | | | | | [address] | | + + + + + Care Team Providers + +------+ + | Care Funeral Home Attendant Name | Role | Phone | + +------+ + PCP | Unavailable | + +------+ + Encounter Details +--------+ + + + + | Date | Type | Department | Care Team | Description | +--------+ + + + + | 03/30/ | Results | | Other, Faculty | | | 1992 | Only | | [phone] | | +--------+ + + + + [...] | | + +---------+ + + | [facility] DEPARTMENT OF | | | [...] | | + +---------+ + + | [facility] DEPARTMENT OF | | | [...] | | | | | | | [id number] AND | | | | | | [...] | | + +---------+ + + | [facility] DEPARTMENT OF | | | [...] | | + +---------+ + + | [facility] DEPARTMENT OF | | | [...] 2: | | | | | | BRTE JOLLEY, | | | | | | PORFIRIO NUNES | | | | | | ARTURO | | | | | | | | | | | | | | | | | | [id number] | | | | | | CHEST: [...] | | | | | | | [id number] | | | | | | CHEST: [...] | | | | | | | [id number], | | | | | | PORTABLE, [...] | | + +---------+ + + | [facility] DEPARTMENT OF | | | [...] | | | | | | | [id number], | | | | | | PORTABLE, [...] and | | | | | | Mcgrady Ganzcatheter are | | | | | [...] | | + +---------+ + + | [facility] DEPARTMENT OF | | | [...] | | + +---------+ + + | [facility] DEPARTMENT OF | | | [...] | | | | | | a Mcgrady-Lupe catheter | | | | | | [...] | | | | placement of a Mcgrady-Lupe | | | | | | catheter. CHEST, | | | | | | SINGLE AP PORTABLE: | | | | | | 03-31-93 AT 1000 HOURS | | | | | | FINDINGS: Since the | | | | | | prior study, the | | | | | | Mcgrady-Lupe catheter has | | | | | [...] IMPRESSION: | | | | | | Mcgrady-Lupe catheter | | | | | | [...] The | | | | | | Mcgrady-Lupe catheter | | | | | | [...] and | | | | | | Mcgrady-Lupe catheter | | | | | | [...] endotracheal | | | | | | tube,Mcgrady-Lupe catheter | | | | | | [...] | | | | | | a Mcgrady-Lupe catheter | | | | | | [...] | | | | placement of a Mcgrady-Lupe | | | | | | catheter. CHEST, | | | | | | SINGLE AP PORTABLE: | | | | | | 03-31-93 AT 1000 HOURS | | | | | | FINDINGS: Since the | | | | | | prior study, the | | | | | | Mcgrady-Lupe catheter has | | | | | [...] IMPRESSION: | | | | | | Mcgrady-Lupe catheter | | | | | | [...] The | | | | | | Mcgrady-Lupe catheter | | | | | | [...] and | | | | | | Mcgrady-Lupe catheter | | | | | | [...] endotracheal | | | | | | tube,Mcgrady-Lupe catheter | | | | | | [...] | | + +---------+ + + | [facility] DEPARTMENT OF | | | [...] | | | | | | a Mcgrady-Lupe catheter | | | | | | [...] | | | | placement of a Mcgrady-Lupe | | | | | | catheter. CHEST, | | | | | | SINGLE AP PORTABLE: | | | | | | 03-31-93 AT 1000 HOURS | | | | | | FINDINGS: Since the | | | | | | prior study, the | | | | | | Mcgrady-Lupe catheter has | | | | | [...] IMPRESSION: | | | | | | Mcgrady-Lupe catheter | | | | | | [...] The | | | | | | Mcgrady-Lupe catheter | | | | | | [...] and | | | | | | Mcgrady-Lupe catheter | | | | | | [...] endotracheal | | | | | | tube,Mcgrady-Lupe catheter | | | | | | [...] | | + +---------+ + + | [facility] DEPARTMENT OF | | | [...] | | | | | | a Mcgrady-Lupe catheter | | | | | | [...] | | | | placement of a Mcgrady-Lupe | | | | | | catheter. CHEST, | | | | | | SINGLE AP PORTABLE: | | | | | | 03-31-93 AT 1000 HOURS | | | | | | FINDINGS: Since the | | | | | | prior study, the | | | | | | Mcgrady-Lupe catheter has | | | | | [...] IMPRESSION: | | | | | | Mcgrady-Lupe catheter | | | | | | [...] The | | | | | | Mcgrady-Lupe catheter | | | | | | [...] and | | | | | | Mcgrady-Lupe catheter | | | | | | [...] endotracheal | | | | | | tube,Mcgrady-Lupe catheter | | | | | | [...] | | + +---------+ + + | [facility] DEPARTMENT OF | | | [...] | | | | | | a Mcgrady-Lupe catheter | | | | | | [...] | | | | placement of a Mcgrady-Lupe | | | | | | catheter. CHEST, | | | | | | SINGLE AP PORTABLE: | | | | | | 03-31-93 AT 1000 HOURS | | | | | | FINDINGS: Since the | | | | | | prior study, the | | | | | | Mcgrady-Lupe catheter has | | | | | [...] IMPRESSION: | | | | | | Mcgrady-Lupe catheter | | | | | | [...] The | | | | | | Mcgrady-Lupe catheter | | | | | | [...] and | | | | | | Mcgrady-Lupe catheter | | | | | | [...] endotracheal | | | | | | tube,Mcgrady-Lupe catheter | | | | | | [...] | | | | | | [facility]. | | | | | [...] | | | | | | a Mcgrady-Lupe catheter | | | | | | [...] | | | | placement of a Mcgrady-Lupe | | | | | | catheter. CHEST, | | | | | | SINGLE AP PORTABLE: | | | | | | 03-31-93 AT 1000 HOURS | | | | | | FINDINGS: Since the | | | | | | prior study, the | | | | | | Mcgrady-Lupe catheter has | | | | | [...] IMPRESSION: | | | | | | Mcgrady-Lupe catheter | | | | | | [...] The | | | | | | Mcgrady-Lupe catheter | | | | | | [...] and | | | | | | Mcgrady-Lupe catheter | | | | | | [...] endotracheal | | | | | | tube,Mcgrady-Lupe catheter | | | | | | [...] | | | | | | a Mcgrady-Lupe catheter | | | | | | [...] | | | | placement of a Mcgrady-Lupe | | | | | | catheter. CHEST, | | | | | | SINGLE AP PORTABLE: | | | | | | 03-31-93 AT 1000 HOURS | | | | | | FINDINGS: Since the | | | | | | prior study, the | | | | | | Mcgrady-Lupe catheter has | | | | | [...] IMPRESSION: | | | | | | Mcgrady-Lupe catheter | | | | | | [...] The | | | | | | Mcgrady-Lupe catheter | | | | | | [...] and | | | | | | Mcgrady-Lupe catheter | | | | | | [...] endotracheal | | | | | | tube,Mcgrady-Lupe catheter | | | | | | [...]
--- OUTSIDE RECORDS SUMMARY | ~2019-10-10 | XMS | Encounter Summary ---
Demographics + + + | Address | [address] | | | [place] [address] | + + + | Home Phone [...] Providers + +------+ + | Care Stone Banker Name | Role | Phone | + +------+ + | Rahul Silva MD | PCP | | + +------+ + Encounter Details +--------+ + + + + | Date | Type | Department | Care Team | Description | +--------+ + + + + | 07/14/ | Orders Only | [facility] | Conversion | | | 2018 | | NEPRHOLOGY [place] | Transaction, | | | | | [address] | Provider Unknown | | | | | [address] [place], [place] | [phone] | | | | | [address] | (Fax) | | | | | [phone] | | | +--------+ + + + [...] [place] | | | | | | [address] | | | | | | | | +--------+---------+ + + + | 12/06/ | Office | Nephrology | Farrukh Acuna MD | | | 2019 | Visit | | [address] | | | | | | [address] [place] [address] | | | | | | [address] | | | | | | | [...]
--- OUTSIDE RECORDS SUMMARY | ~2019-10-10 | XMS | Encounter Summary ---
Demographics + + + | Address | [address] | | | [place] [address] | + + + | Home Phone [...] Providers + +------+ + | Care Service Desk Analyst Name | Role | Phone | [...] | | ([facility]) | [place], [place] | | | | | | Procedures | [address] | | | | | | VAS Arm | Phone: | | | | | | Bilateral | [phone] | | | | | | Mapping For | Fax: | | | | | | Dialysis | [phone] | | +--------+--------+ + + + + Reason for Visit + + + | Reason | Comments | + + + | Referral Consult | | + + + Encounter Details +--------+ + + + + | Date | Type | Department | Care Team | Description | +--------+ + + + + | 07/30/ | Telephone | [facility] | Trisha Conner DNP | Referral Consult | | 2019 | | CARDIOTHORACIC | [address] | | | | | SURGERY [address] | [place], [place] | | | | | [address] | [address] | | | | | [place], [place] | | | | | | [address] | | | | | | [phone] | | | +--------+ + + + [...] [place] | | | | | | [address] | | | | | | | | +--------+---------+ + + + | 12/06/ | Office | Nephrology | Farrukh Acuna MD | | | 2019 | Visit | | [address] [facility] [address] | | | | | | [address] [place], [place] | | | | | | [address] | | | | | | | [...] | | | | Signed by: Pravin Aberu Chet | | Sign Date/Time: 08/20/2019 4:23 [...]
--- OUTSIDE RECORDS SUMMARY | ~2019-10-10 | XMS | Encounter Summary ---
Demographics + + + | Address | [address] | | | [place] [address] | + + + | Home Phone [...] [place] | | | | | [address] | | + + + + + Care Team Providers + +------+ + | Care Ice Cutter Name | Role | Phone | + +------+ + PCP | Unavailable | + +------+ + Encounter Details +--------+ + + + + | Date | Type | Department | Care Team | Description | +--------+ + + + + | 02/26/ | Results | | Other, Faculty | | | 1993 | Only | | [phone] | | +--------+ + + + + [...] | | + +---------+ + + | [facility] DEPARTMENT OF | | | | | RADIOLOGY | | | | + +---------+ + + documented in this encounter Visit Diagnoses Not on filedocumented in this encounter"
--- OUTSIDE RECORDS SUMMARY | ~2019-10-10 | XMS | Encounter Summary ---
Demographics + + + | Address | [address] | | | [place] [address] | + + + | Home Phone [...] Providers + +------+ + | Care Process Coach Name | Role | Phone | [...] [address] | | | | | [place], [place] | [place], [place] | | | | | [address] | [address] | | | | | [phone] | [phone] | | | | | | | [...] [place] | | | | | | [address] | | | | | | | | +--------+---------+ + + + | 12/06/ | Office | Nephrology | Farrukh Acuna MD | | | 2019 | Visit | | [address] [facility] | | | | | | [address] [place] [address] | | | | | | [address] | | | | | | | [...]
--- OUTSIDE RECORDS SUMMARY | ~2019-10-10 | XMS | Encounter Summary ---
Demographics + + + | Address | [address] | | | [place] [address] | + + + | Home Phone [...] Providers + +------+ + | Care Digital Marketing Apprentice Name | Role | Phone | [...] | | | [address] [place], [place] | [address] | | | | | [address] | | | | | | [phone] | | | +--------+ + + + [...] [place] | | | | | | [address] | | | | | | | | +--------+---------+ + + + | 12/06/ | Office | Nephrology | Farrukh Acuna MD | | | 2020 | Visit | | [address] | | | | | | [address] [place] | | | | | | [address] | | | | | | | [...]
--- OUTSIDE RECORDS SUMMARY | ~2019-10-10 | XMS | Encounter Summary ---
Demographics + + + | Address | [address] | | | [place] [address] | + + + | Home Phone [...] Providers + +------+ + | Care Repair Welder Name | Role | Phone | + +------+ + | Rahul Silva MD | PCP | | + +------+ + Encounter Details +--------+ + + + + | Date | Type | Department | Care Team | Description | +--------+ + + + + | 10/08/ | Orders Only | [facility] | Farrukh Acuna MD | | | 2016 | | NEPHROLOGY [place] | [address] [place] | | | | | [address] [place] | [address] [place], [place] | | | | | [address] [place], [place] | [address] | | | | | [address] | | | | | | [phone] | | | +--------+ + + + [...] [place] | | | | | | [address] | | | | | | | | +--------+---------+ + + + | 12/06/ | Office | Nephrology | Farrukh Acuna MD | | | 2020 | Visit | | [address] | | | | | | [address] [place] | | | | | | [address] | | | | | | | [...]
--- OUTSIDE RECORDS SUMMARY | ~2019-10-10 | XMS | Encounter Summary ---
Demographics + + + | Address | [address] | | | [place] [address] | + + + | Home Phone [...] Providers + +------+ + | Care Electric Stove Installer Name | Role | Phone | + +------+ + | Rahul Silva MD | PCP | | + +------+ + Encounter Details +--------+ + + + + | Date | Type | Department | Care Team | Description | +--------+ + + + + | 09/07/ | Orders Only | [facility] | Farrukh Acuna MD | | | 2018 | | NEPRHOLOGY [place] | [address] | | | | | [address] [place] | [address] [place], [place] | | | | | [address] [place], [place] | [address] | | | | | [address] | | | | | | [phone] | | | +--------+ + + + [...] [place] | | | | | | [address] | | | | | | | | +--------+---------+ + + + | 12/06/ | Office | Nephrology | Farrukh Acuna MD | | | 2020 | Visit | | [address] [facility] [address] | | | | | | [address] [place] | | | | | | [address] | | | | | | | [...]
--- OUTSIDE RECORDS SUMMARY | ~2019-10-10 | XMS | Encounter Summary ---
Demographics + + + | Address | [address] | | | [place] [address] | + + + | Home Phone [...] [place] | | | | | [address] | | + + + + + Care Team Providers + +------+ + | Care Executive Kitchen Manager Name | Role | Phone [...] [address] | | | | | | [place], [place] | | | | | | [address] | | | | | | [phone] | | | +--------+ + + + [...] as of this encounter Progress Notes Interface, Private Branch Exchange Service Adviser In - 01/03/2007 5:08 AM PST CLINIC DATE: 12/22/97 Mr. Andujar is referred by Dr. Jerry Smiley in the [place] area. He is currently followed by the Anesthesia Pain Service at [facility], and also recently has been followed by [...] under Dr. Robert Carlson's supervision here at [facility]. His pain continued, exacerbated by a fall [...] procedure at this time. Eric Mcclure M.D. Hvac Tech, Department of Orthopaedics and Rehabilitation AY/sara A cc: Jerry Smiley M.D. (with letter) [address] [place] [address] [address] [place] [address] Robert Carlson M.D. FAX: [phone] Alina Moise M.D. FAX: [phone] [facility] ClinicFAX: [phone] documented in this encounter Plan of Treatment Not on filedocumented as of this encounter Visit Diagnoses Not on filedocumented in this encounter
--- OUTSIDE RECORDS SUMMARY | ~2019-10-10 | XMS | Encounter Summary ---
Demographics + + + | Address | [address] | | | [place] [address] | + + + | Home Phone [...] [place] | | | | | [address] | | + + + + + Care Team Providers + +------+ + | Care Full Stack Python Developer Name | Role | Phone | [...] Clinic | | | | | | [facility], [address] | | | | | | [place], [place] | | | | | | [address] | | | | | | [phone] | | | +--------+ + + + [...] as of this encounter Progress Notes Interface, Grounds Maintenance Worker In - 01/06/2007 5:03 AM PST CLINIC DATE: 10/31/97 [facility] - PROCEDURE [...] his left thigh stump. Nelson Melara M.D. Oilfield Plant And Field Operator, [facility] MANDY/maryjo documented in this encounter Plan of Treatment Not on filedocumented as of this encounter Visit Diagnoses Not on filedocumented in this encounter"
--- OUTSIDE RECORDS SUMMARY | ~2019-10-10 | XMS | Encounter Summary ---
Demographics + + + | Address | [address] | | | [place] [address] | + + + | Home Phone [...] Team Providers + +------+ + | Care Facility Practice Specialist Name | Role | Phone | [...] + + | 08/10/ | Telephone | [facility] | Brian Orosco MD | Other (orders ) | | 2019 | | VASCULAR SURGERY | [address] | | | | | [address] [place] | [place], [place] | | | | | [place], [place] | [address] | | | | | [address] | [phone] | | | | | [phone] | | | +--------+ + + + [...] [place] | | | | | | [address] | | | | | | | | +--------+---------+ + + + | 12/06/ | Office | Nephrology | Farrukh Acuna MD | | | 2020 | Visit | | [address] [facility] | | | | | | [address] [place], [place] | | | | | | [address] | | | | | | | | +--------+---------+ + + + documented as of this encounter Visit Diagnoses Not on filedocumented in this encounter"
--- OUTSIDE RECORDS SUMMARY | ~2019-10-10 | XMS | Encounter Summary ---
Demographics + + + | Address | [address] | | | [place] [address] | + + + | Home Phone [...] Team Providers + +------+ + | Care Storage Battery Inspector Name | Role | Phone | [...] | | | [address] [place], [place] | [address] | | | | | [address] | | | | | | [phone] | | | +--------+ + + + [...] [place] | | | | | | [address] | | | | | | | | +--------+---------+ + + + | 12/06/ | Office | Nephrology | Farrukh Acuna MD | | | 2019 | Visit | | [address] | | | | | | [address] [place] | | | | | | [address] | | | | | | | [...] | | | LAB | | | [facility] | | | | | + + [...]
--- OUTSIDE RECORDS SUMMARY | ~2019-10-10 | XMS | Encounter Summary ---
Demographics + + + | Address | [address] | | | [place] [address] | + + + | Home Phone [...] Team Providers + +------+ + | Care Strickler Attendant Name | Role | Phone | [...] POPLAR | (cancellation) | | | | [place], | [place], [place] | | | | | [place] [address] | [address] | | | | | [phone] | | | +--------+ + + + [...] [place] | | | | | | [address] | | | | | | | | +--------+---------+ + + + | 12/06/ | Office | Nephrology | Farrukh Acuna MD | | | 2019 | Visit | | [address] | | | | | | [address] [place] | | | | | | [address] | | | | | | | | +--------+---------+ + + + documented as of this encounter Visit Diagnoses Not on filedocumented in this encounter"
--- OUTSIDE RECORDS SUMMARY | ~2019-10-10 | XMS | Encounter Summary ---
Demographics + + + | Address | [address] | | | [place] [address] | + + + | Home Phone [...] Providers + +------+ + | Care Geriatric Nursing Assistant Name | Role | Phone | + +------+ + | aRhul Silva MD | PCP | | + +------+ + Encounter Details +--------+ + + + + | Date | Type | Department | Care Team | Description | +--------+ + + + + | 09/07/ | Preadmit | [facility] | Brian Orosco MD | | | 2019 | Visit | CENTER [facility] | [address] | | | | | CLINIC [address] | [place], [place] | | | | | [place], [place] | [address] | | | | | [address] | [phone] | | | | | [phone] | | | +--------+ + + + [...] through Care Everywhere.Hemodialysis Ac cess, Creating a ([facility])D[facility], Arteriovenous (AV) Fistula for ([facility])documented in th is encounter Plan of Treatment +--------+---------+ + + + | Date | Type | Specialty | Care Team | Description | +--------+---------+ + + + | 10/20/ | Office | Vascular Surgery | Trisha Conner DNP | | | 2018 | Visit | | [address] | | | | | | [place] | | | | | | [id number] | | | | | | | | +--------+---------+ + + + | 12/06/ | Office | Nephrology | Farrukh Acuna MD | | | 2019 | Visit | | [address] [facility] [place] | | | | | | [address] [place], [place] | | | | | | [address] | | | | | | | [...] | 10.5 | 8.5 - 10.5 | [facility] | | | | | mg/dL | LABORATORY | | + + + + + + | Estimated | 12 (L)Comment: GFR <60: | >60 | [facility] | | | GFR | CHRONIC KIDNEY [...] | | | | | | MDRD IDKS traceable | | | | | | equation.Testing | | | | | | performed at [facility], [address] | | | | | | [facility], | | | | | | [place] [address] | | | | + + + + + + + + | Specimen | + + | Blood | + + + + + + + | Performing | Address | City/State/Zipcode | Phone Number | | Organization | | | | + + + + + | [facility] | [address] | [place] [address] | [phone] | + + + + + CBC [...] | | | Absolute | performed at [facility], [address] | K/uL | LABORATORY | | | | [place], | | | | | | [place] [address] | | | | + + + + + + + + | Specimen | + + | Blood | + + + + + + + | Performing | Address | City/State/Zipcode | Phone Number | | Organization | | | | + + + + + | [facility] | [address] | [place] [address] | [phone] | + + + + + ECG [...]
--- OUTSIDE RECORDS SUMMARY | ~2019-10-10 | XMS | Encounter Summary ---
Demographics + + + | Address | [address] | | | [place] [address] | + + + | Home Phone [...] Providers + +------+ + | Care Community Organizer Name | Role | Phone | + +------+ + | Rahul Silva MD | PCP | | + +------+ + Encounter Details +--------+ + + + + | Date | Type | Department | Care Team | Description | +--------+ + + + + | 02/12/ | Orders Only | [facility] | Farrukh Acuna MD | | | 2018 | | NEPHROLOGY [place] | [address] [place] | | | | | [address] [place] | [address] [place], [place] | | | | | [address] [place], [place] | [address] | | | | | [address] | | | | | | [phone] | | | +--------+ + + + [...] [place] | | | | | | [address] | | | | | | | | +--------+---------+ + + + | 12/06/ | Office | Nephrology | Farrukh Acuna MD | | | 2020 | Visit | | [address] [place] | | | | | | [address] [place] | | | | | | [address] | | | | | | | [...]
--- OUTSIDE RECORDS SUMMARY | ~2019-10-10 | XMS | Encounter Summary ---
Demographics + + + | Address | [address] | | | [place] [address] | + + + | Home Phone [...] + +------+ + | Care Emergency Room Clerk Name | Role | Phone | [...] | Transaction, | | | | | [place], [place] | Provider Unknown | | | | | [address] | | | | | | [phone] | | | +--------+ + + + [...] | | | | [place] | | | | | | [address] | | | | | | | | +--------+---------+ + + + | 12/06/ | Office | Nephrology | Farrukh Acuna MD | | | 2019 | Visit | | [address] [facility] [place] | | | | | | [address] [place] | | | | | | [address] | | | | | | | [...]
--- OUTSIDE RECORDS SUMMARY | ~2019-10-10 | XMS | Encounter Summary ---
Demographics + + + | Address | [address] | | | [place] [address] | + + + | Home Phone [...] Providers + +------+ + | Care Executive Vice President Of Sales Name | Role | Phone | + +------+ + | Rahul Silva MD | PCP | | + +------+ + Encounter Details +--------+ + + + + | Date | Type | Department | Care Team | Description | +--------+ + + + + | 01/13/ | Orders Only | [facility] | Conversion | | | 2016 | | NEPHROLOGY [place] | Transaction, | | | | | [address] [place] | Provider Unknown | | | | | [address] [place] | | | | | | [address] | (Fax) | | | | | [phone] | | | +--------+ + + + [...] [place] | | | | | | [address] | | | | | | | | +--------+---------+ + + + | 12/06/ | Office | Nephrology | Farrukh Acuna MD | | | 2019 | Visit | | [address] [place] | | | | | | [address] [place] | | | | | | [address] | | | | | | | [...] - 1.030 | EXTERNAL | | | [place] | | | LAB | | + [...] | | | LAB | | | [facility] | | | | | + + [...]
--- OUTSIDE RECORDS SUMMARY | ~2019-10-10 | XMS | Encounter Summary ---
Demographics + + + | Address | [address] | | | [place] [address] | + + + | Home Phone [...] Providers + +------+ + | Care Jewelry Appraiser Name | Role | Phone | + +------+ + | Rahul Silva MD | PCP | | + +------+ + Encounter Details +--------+ + + + + | Date | Type | Department | Care Team | Description | +--------+ + + + + | 10/05/ | Orders Only | [facility] | Farrukh Acuna MD | Essential | | 2019 | | NEPHROLOGY [place] | [address] [place] | hypertension | | | | [address] | [address] [place], [place] | (Primary Dx); Iron | | | | [address] [place] [address] | [address] | deficiency; Anemia | | | | [place], [place] | | of chronic kidney | | | | [address] | | failure, stage 5 | | | | [phone] | | (HCC) | +--------+ + + [...] [place] | | | | | | [id number] | | | | | | | | +--------+---------+ + + + | 12/06/ | Office | Nephrology | Farrukh Acuna MD | | | 2019 | Visit | | [address] [facility] | | | | | | [address] [place], [place] | | | | | | [address] | | | | | | | [...]
--- OUTSIDE RECORDS SUMMARY | ~2019-10-10 | XMS | Encounter Summary ---
Demographics + + + | Address | [address] | | | [place] [address] | + + + | Home Phone [...] Team Providers + +------+ + | Care Winter Sports Manager Name | Role | Phone | [...] E | | | | | | ([facility]) | [place], [place] | | | | | | Procedures | [address] | | | | | | VAS Arm | Phone: | | | | | | Bilateral | [phone] | | | | | | Mapping For | Fax: | | | | | | Dialysis | [phone] | | +--------+--------+ + + + + Reason for Visit + + + | Reason | Comments | + + + | Referral Consult | | + + + Encounter Details +--------+ + + + + | Date | Type | Department | Care Team | Description | +--------+ + + + + | 07/30/ | Telephone | [facility] | Trisha Conner DNP | Referral Consult | | 2019 | | CARDIOTHORACIC | [address] | | | | | SURGERY [address] | [place], [place] | | | | | [address] | [address] | | | | | [place], [place] | | | | | | [address] | | | | | | [phone] | | | +--------+ + + + [...] [place] | | | | | | [address] | | | | | | | | +--------+---------+ + + + | 12/06/ | Office | Nephrology | Farrukh Acuna MD | | | 2019 | Visit | | [address] [place] | | | | | | [address] [place], [place] | | | | | | [address] | | | | | | | [...]
--- OUTSIDE RECORDS SUMMARY | ~2019-10-10 | XMS | Encounter Summary ---
Demographics + + + | Address | [address] | | | [place] [address] | + + + | Home Phone [...] [place], | | | | | [place], [place] | [place] [address] | | | | | [address] | [phone] | | | | | [phone] | | | +--------+ + + + [...] [place] | | | | | | [id number] | | | | | | | | +--------+---------+ + + + | 12/06/ | Office | Nephrology | Farrukh Acuna MD | | | 2019 | Visit | | [address] [facility] | | | | | | [address] [place] | | | | | | [address] | | | | | | | | +--------+---------+ + + + documented as of this encounter Visit Diagnoses Not on filedocumented in this encounter"
--- OUTSIDE RECORDS SUMMARY | ~2019-10-10 | XMS | Encounter Summary ---
Demographics + + + | Address | [address] | | | [place] [address] | + + + | Home Phone [...] Team Providers + +------+ + | Care Copier And Printer Field Technician Name | Role | Phone | + +------+ + | Rahul Silva MD | PCP | | + +------+ + Encounter Details +--------+---------+ + + + | Date | Type | Department | Care Team | Description | +--------+---------+ + + + | 10/04/ | Office | [facility] | Farrukh Acuna MD | CKD (chronic kidney | | 2019 | Visit | NEPHROLOGY [place] | [address] [place] | disease) stage 5, | | | | [address] | [address] [place], [place] | GFR less than 15 | | | | [address] [place] [address] | [address] | ml/min (HCC) | | | | [place], [place] | | (Primary Dx); Anemia | | | | [address] | | of chronic kidney | | | | [phone] | | failure, stage 5 | | | | | | (HCC); Essential | | | | | | hypertension; Iron | | | | | | deficiency; | | | | | | Secondary | | | | | | hyperparathyroidism | | | | | | ([facility]); 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, with | | | | | | long-term current | | | | | | use of insulin | | | | | | ([facility]); Edema of | | | | [...] 10/2016 with severe pneumonia, severe ZEKE; needed ELECTRIC NEEDLE SPECIALIST for ~5 weeks b efore renal function recovery mid 12/2016. He was admitted [facility] for 3 nights in July 2016 for [...] 19.5 (A) 05/27/2019 LABPROT 2,445.6 (A) 03/01/2019 [id number] 30 10/08/2018 Assessment: Mr. Andujar is a 78 y.o. male patient with stage IV CKD on a background of diabetes & hypert ension and recent hospitalization for C-diff and hehydration. The most likely pathology here is that of diabetic nephropathy +/- hypertensive nephrosclerosis/arteriolosclerosis. He was hospitalized in 10/2016 with severe pneumonia, severe ZEKE; needed ELECTRIC NEEDLE SPECIALIST for ~5 weeks b efore renal function [...] Also: I see no need for acute ELECTRIC NEEDLE SPECIALIST. I see no need to send him [...] [place] | | | | | | [id number] | | | | | | | | +--------+---------+ + + + | 12/06/ | Office | Nephrology | Farrukh Acuna MD | | | 2019 | Visit | | [address] [facility] | | | | | | [facility] | | | | | | [address] | | | | | | | | +--------+---------+ + + + documented as of this encounter Visit Diagnoses + + | Diagnosis | + + | CKD (chronic kidney disease) stage 5, GFR less than 15 ml/min ([facility]) - Primary Chronic | | kidney [...]
--- OUTSIDE RECORDS SUMMARY | ~2019-10-10 | XMS | Encounter Summary ---
Demographics + + + | Address | [address] | | | [place] [address] | + + + | Home Phone [...] Team Providers + +------+ + | Care Skein Straightener Name | Role | Phone | + [...] [address] | | | | | [place], [place] | [place], [place] | | | | | [address] | [address] | | | | | [phone] | [phone] | | | | | | | [...] [place] | | | | | | [address] | | | | | | | | +--------+---------+ + + + | 12/06/ | Office | Nephrology | Farrukh Acuna MD | | | 2019 | Visit | | [address] [facility] [place] | | | | | | [address] [place] | | | | | | [address] | | | | | | | [...]
--- OUTSIDE RECORDS SUMMARY | ~2019-10-10 | XMS | Encounter Summary ---
Demographics + + + | Address | [address] | | | [place] [address] | + + + | Home Phone [...] Providers + +------+ + | Care Radio Engineer Name | Role | Phone | [...] | | | hip | [address] | | | | | | fracture, | [place] | | | | | | initial | [place], [place] | | | | | | encounter | [address] | | | | | | ([facility]) | Phone: | | | | | | Status post | [phone] | | | | | | above knee | Fax: | | | | | | amputation | [phone] | | | | | | of [...] + + | 08/03/ | Hospital | [facility] | Jose Andrade | Laceration of left | | 2016 - | Encounter | [facility] | MD Mehrdad [address] | ear, initial | | | | [address] [place] | [address] [place] | encounter (Primary | | 08/05/ | | [place] [address] | [place] [address] | Dx); Closed left hip | | 2016 | | [phone] | [phone] | fracture, initial | | | | | | encounter ([facility]); | | | | | Guillermo Atkins, | Fall, initial | | | | | DO [address] | encounter; Acute | | | | | [place] [address] [place], | pain; Hyperkalemia; | | | | | [place] [address] | CKD (chronic kidney | | | | | [phone] | disease), | | | | | [...] | | | | | | encounter ([facility]); | | | | | | PAOLO on CPAP; Status | | | | | | post fall; Status | | | | | | 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 | | | | | | lower extremity | | | | | | ([facility]); Phantom limb | | | | | | pain ([facility]) | +--------+ + [...] Bolivar MD - 08/05/2016 1:07 PM PDT [facility] DISCHARGE SUMMARY Pt. Name/Age/: Kavon Andujar 76 [...] mg by mouth nightly. aka: LIPITOR Cholecalciferol 11024 units Caps Take 50,000 Units by mouth [...] in 7-10 days Contact information: [address] [facility] [place] [address] [place] [id number] PENDING RESULTS: HOSPITAL COURSE: Please refer to [...] signed by: Petey Bolivar MD, 08/05/2016 13:07 [facility] Portions of this chart may have been created with [employer] voice recognition software. Occasi onal wrong-word or sound-alike substitutions may have occurred due to the inherent vanegas itations of voice recognition software. Please read the chart carefully and recognize, using context, where these substitutions have occurred documented in this encounter Discharge Instructions Instructions Maritza Devries RN - 08/05/2016Please call Dr. Tobar at [phone] for an y questions or concerns regarding [...] 0 | | | | (VITAMIN D-3) [address] | mouth Every 3 | | | [...] be differ ent from the original. [facility] Hospitalist Progress Note Kavon Andujar [...] Clear Clear PH UA 5.0 5.0-8.0 Specific [place] 1.015 1.001-1.030 PROTEIN UA 100 mg/dL (A) [...] as outlined above. Sonu Michel 08/04/2016 11:33 [facility] Yuriy Farrell RRT - 08/04/2016 8:42 [...] [place] | | | | | | [address] | | | | | | | | +--------+---------+ + + + | 12/06/ | Office | Nephrology | Farrukh Acuna MD | | | 2020 | Visit | | [address] [facility] [place] | | | | | | [address] [place] | | | | | | [address] | | | | | | | [...] until | | | | | encounter ([facility]) | 08/04/2016 | | | | | Status post above | | | | | | knee amputation of | | | | | | left lower extremity | | | | | | ([facility]) | | + +------+--------+ + + | DME: Walker | DME | Routin | Closed left hip | Ordered: 08/05/2016 | | | | e | fracture, initial | | | | | | encounter ([facility]) | | | | | | Status post above | | | | | | knee amputation of | | | | | | left lower extremity | | | | | | ([facility]) | | + [...] + | [facility] | [address] | [place] | [phone] | | [facility] | | [address] | | | - LABORATORY | | [...] | | GLOMERULAR FILTRATION | mL/min/1.73m2 | [facility] | | | [place]AN | RATE,ESTIMATED | | MEDICAL | | | | mL/min/1.46h1Rmrc than | | CENTER - | | [...] | 8.3 | 8.3 - 10.5 | [facility] | | | | | mg/dL | [facility] | | | | | | MEDICAL | | | | | | CENTER - | | | | | | LABORATORY | | + + + + + + | Albumin | 2.8 (L) | 3.2 - 5.0 g/dL | [facility] | | | | | | [facility] | | | | | [...] [address] | [place] | [phone] | | [facility] | | [address] | | | - LABORATORY | | [...] [address] | [place] | [phone] | | [facility] | | [address] | | | - LABORATORY | | [...] + | [address] | [address] | [place] | [phone] | | [facility] | | [address] | | | - LABORATORY | | [...] [address] | [place] | [phone] | | [facility] | | [address] | | | - LABORATORY | | [...] [address] | [place] | [phone] | | [facility] | | [address] | | | - LABORATORY | | [...] + | [facility] | [address] | [place] | [phone] | | [facility] | | [address] | | | - LABORATORY | | [...] [address] | [place] | [phone] | | [facility] | | [address] | | | - LABORATORY | | [...] [address] | [place] | [phone] | | [facility] | | [address] | | | - LABORATORY | | [...] [address] | [place] | [phone] | | [facility] | | [address] | | | - LABORATORY | | [...] | | Neutrophils | | K/uL | [facility] | | | | | [...] | Basophils | | K/uL | [facility] | | | | | [...] [address] | [place] | [phone] | | [facility] | | [address] | | | - LABORATORY | | [...] (H) | 7 - 18 mg/dL | [facility] | | | | | | [facility] | | | | | | MEDICAL | | | | | | CENTER - | | | | | | LABORATORY | | + + + + + + | Creatinine | 2.09 (H) | 0.60 - 1.30 | [facility] | | | | | mg/dL | [facility] | | | | | | MEDICAL | | | | | | CENTER - | | | | | | LABORATORY | | + + + + + + | eGFR if not | 31 (L)Comment: | >=60 | [facility] | | | | GLOMERULAR FILTRATION | mL/min/1.73m2 | [facility] | | | [place]AN | RATE,ESTIMATED | | MEDICAL | | | | mL/min/1.65m6Fioo than | | CENTER - | | [...] + | [facility] | [address] | [place] | [phone] | | [facility] | | [address] | | | - LABORATORY | | [...] - 1.030 | [facility] | | | [place] | | | [facility] | | [...] + | [address] | [address] | [place] | [phone] | | [facility] | | [address] | | | - LABORATORY | | [...] | | | | AYAH RON MD ([id number]) | | | | | | on [...] [address] | [place] | [phone] | | [facility] | | [address] | | | - LABORATORY | | [...] + | [facility] | [address] | [place] | [phone] | | [facility] | | [address] | | | - LABORATORY | | [...] [address] | [place] | [phone] | | [facility] | | [address] | | | - LABORATORY | | [...] ST. | [address] | [place] | [phone] | | [facility] | | [address] | | | - LABORATORY | | [...] | Top Tube | | | [facility] | | | | | [...] [address] | [place] | [phone] | | [facility] | | [address] | | | - LABORATORY | | [...] (H) | 7 - 18 mg/dL | [facility] | | | | | | [facility] | | | | | | MEDICAL | | | | | | CENTER - | | | | | | LABORATORY | | + + + + + + | Creatinine | 2.03 (H) | 0.60 - 1.30 | [facility] | | | | | mg/dL | [...] mL/min/1.73m2 | [facility] | | | [place]AN | RATE,ESTIMATED | | MEDICAL | | | | mL/min/1.47a8Wzay than | | CENTER - | | [address] | [place] | [phone] | | [facility] | | [address] | | | - LABORATORY | | [...] Insulin dependent type 2 diabetes mellitus, uncontrolled ([facility]) Type II or unspecified | | type diabetes mellitus without mention of complication, uncontrolled | + + | PAOLO on CPAP Obstructive sleep apnea (adult) (pediatric) | + + | Status post fall Unspecified fall | + + | Status post above knee amputation of left lower extremity | + + | Phantom limb pain ([facility]) Phantom limb (syndrome) | + + | [...] | | | | | | | 0432-0087 Use NIGHT DOSE for | | | | | | | doses scheduled: HS, 3AM, | | | | | | | Nighttime 1215-7207, | | | | | | + [...] | +---+---+ + +-------+ +---------+---+ + | [id number] | Given | 08/03/20 | 0.5 mLs [...]
[~2019-10-10 20:25] MED LIST changes: +CEFPODOXIME PR200 MG PO; +FERROUSUL325 MG PO; +ONDANSETRON ODT8 MG PO; +SENNA-S LAXATI1 EACH PO
--- OUTSIDE RECORDS SUMMARY | 2019-10-10 20:28 | XMS ---
PreManage Notification: PORFIRIO ZAVALA Security Refrigeration Manager Events No recent Security Events currently on file CRITERIA MET - [facility] - Has Care Guidelines - PDMP - [facility] - 2 Visits in 30 Days [facility]Rodney Van PHONE: [phone] Herminia Rivera Contour Grinder/Med Surg Rn 08/31/2018-Current PHONE: [phone] Herminia Rivera Primary Care 08/31/2018-Current PHONE: [phone] Domenic Gutiérrez Case or Spinner Cap Frame Current PHONE: [phone] HARDIK Van Primary Care 08/31/2015-Rodney COYNE PHONE: Unknown Agapito has no Care Guidelines for this patient. Care History Medical/Surgical 05/28/2018 [facility] - Patient currently sees high raw sugar boiler Dr Acuna and patient has last seen [...] ED please contact Community Health WorkerLizzy at [phone]. These are guidelines and the provider should exercise clinical judgment when providing care. 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 TOTAL 4 NOTE: Visits indicate total known visits. ED/UCC VISIT TRACKING (12 MO.) 10/10/2019 20:25 [facility] TYPE: Emergency COMPLAINT: - CHEST PAIN 09/27/2019 12:22 [facility] TYPE: Emergency COMPLAINT: - SOB 03/03/2019 06:55 [facility] TYPE: Emergency COMPLAINT: - SOB DIAGNOSES: - FPC (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 of insulin - Nicotine dependence, unspecified, uncomplicated - FPC (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 of aspirin - 1 Type 2 diabetes mellitus w diabetic chronic kidney disease - Prsnl hx of TIA (TIA), and cereb infrc w/o resid deficits - 1 Chronic kidney disease, stage 4 (severe) - Other fdc (current) drug therapy - Chronic obstructive pulmonary disease w (acute) exacerbation - Shortness of breath - 1 Hypertensive chronic kidney disease w stg 1-4/unsp chr kdny 02/15/2019 22:21 [facility] TYPE: Emergency COMPLAINT: - CONSTIPATED INPATIENT VISIT TRACKING (12 MO.) 09/27/2019 16:43 [facility] TYPE: Medical Surgical COMPLAINT: - PNA DIAGNOSES: - Adverse effect of other opioids, initial encounter - terminal supervisor (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 of antithrombotics/antiplatelets - Anemia in chronic kidney disease - Acquired absence of left leg above knee - 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 classd elswhr - Nicotine dependence, unspecified, uncomplicated - Panlobular emphysema - Panlobular emphysema - 1 Type 2 diabetes mellitus w diabetic chronic kidney disease - FPC (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 of insulin - Allergy status to oth drug/meds/biol subst status - Opioid dependence, uncomplicated - Other fdc (current) drug therapy - Nicotine dependence, unspecified, uncomplicated - Pneumonia due to Streptococcus pneumoniae - Chronic pain syndrome - Dependence on wheelchair - FPC (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 of insulin - Acquired absence of left leg above knee - 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 classd elswhr - 1 Chronic kidney disease, stage 4 (severe) - Obstructive sleep apnea (adult) (pediatric) - Prsnl hx of TIA (TIA), and cereb infrc w/o resid deficits - Hyperlipidemia, unspecified - 1 Chronic kidney disease, stage 4 (severe) - Chronic pain syndrome - Prsnl hx of TIA (TIA), and cereb infrc w/o resid deficits - Obstructive sleep apnea (adult) (pediatric) - 1 Type 2 diabetes mellitus w diabetic chronic kidney disease - Allergy status to oth drug/meds/biol subst status - Drug induced constipation - 1 Hypertensive chronic kidney disease w stg 1-4/unsp chr kdny - Dependence on wheelchair - Hyperlipidemia, unspecified - Drug induced constipation - FPC (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 of aspirin - Anemia in chronic kidney disease - 1 Hypertensive chronic kidney disease w stg 1-4/unsp chr kdny - terminal supervisor (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 of aspirin - Adverse effect of other opioids, initial encounter - FPC (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 of antithrombotics/antiplatelets - Opioid dependence, uncomplicated - Other buttermaker helper (current) drug therapy 02/15/2019 22:22 [facility] TYPE: Observation COMPLAINT: - STERCORAL COLITIS DIAGNOSES: - terminal supervisor (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 of antithrombotics/antiplatelets - 1 Hypertensive [...] and cereb infrc w/o resid deficits - terminal supervisor (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 of insulin - Accidental pnctr \T\ lac of a dgstv sys org dur dgstv sys proc - Chronic obstructive pulmonary disease, unspecified - Noninfective gastroenteritis and colitis, unspecified - Gastro-esophageal reflux disease without esophagitis - Other buttermaker helper (current) drug therapy - Other chronic pain - Acquired absence of left leg above knee [email or web address]
--- NOTE | 2019-10-11 07:19 | EKG ---
[facility] [address] [facility] [place] [address] Signed Normal sinus rhythm Normal ECG When compared with ECG of 27-SEP-2019 12:29, Vent. rate has increased BY 31 BPM T wave amplitude has decreased in Anterior leads Confirmed by DARSHAN LEAL MD ([id number]) on 10/11/2019 7:19:37 AM Electronically Signed By: DARSHAN LEAL MD 10/11/19 0719 PATIENT NAME: ZAVALAPORFIRIO OSWALDO Electrocardiogram DATE OF : 40 PHYSICIAN: DARSHAN LEAL MD REPORT #: [id number] REPORT IS CONFIDENTIAL AND NOT TO BE RELEASED WITHOUT AUTHORIZATION
== END 2019-10-10 22:19 | disposition home or self-care (01) ==
LOC: ED 20:25
DX: R07.9 Chest pain, unspecified (principal); E83.42 Hypomagnesemia; E11.22 Type 2 diabetes mellitus with diabetic chronic kidney disease; I13.0 Hypertensive heart and chronic kidney disease with heart failure and stage 1 through stage 4 chronic kidney disease, or unspecified chronic kidney disease; N18.4 Chronic kidney disease, stage 4 (severe); I50.9 Heart failure, unspecified; J44.9 Chronic obstructive pulmonary disease, unspecified; Z86.73 Personal history of transient ischemic attack (TIA), and cerebral infarction without residual deficits; Z87.891 Personal history of nicotine dependence; Z88.8 Allergy status to other drugs, medicaments and biological substances; Z79.899 Other long term (current) drug therapy; Z79.4 Long term (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 of insulin; Z79.82 Long term (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 of aspirin
CPT/HCPCS: 71045; 80053; 83735; 83880; 84484; 85025; 93005; 93010; 99285-25

== ENCOUNTER 2019-11-04 13:10 | Emergency (ER) | payer MEDICARE, OTHER ==
[~2019-11-04] VITALS: Ht 172.7 cm; Wt 86.2 kg
--- OUTSIDE RECORDS SUMMARY | ~2019-11-04 | XMS | Encounter Summary ---
Demographics + + + | Address | [address] | | | [place] [address] | + + + | Home Phone | | + + + | Preferred Language | Unknown | + + + | Marital Status | | + + + | Protestant Affiliation | 1077 | + + + | Race | Unknown | + + + | Ethnic Group | Unknown | + + + Author + + + | Author | [facility] | | | and [place] | + + + | Organization | [facility] | | | and [place] | + + + | Address | Unknown | + + + | Phone | Unavailable | + + + Support + + +---------+ + | Name | Relationship | Address | Phone | + + +---------+ + | Charlotte Andujar | ECON | Unknown | | + + +---------+ + Care Team Providers + +------+ + | Care Baggage Porter Head Name | Role | Phone | + +------+ + | Rahul Silva MD | PCP | | + +------+ + Encounter Details +--------+ + + + + | Date | Type | Department | Care Team | Description | +--------+ + + + + | 07/14/ | Orders Only | [facility] | Farrukh Acuna MD | | | 2018 | | NEPRHOLOGY [place] | [address] | | | | | [address] | [address] [place], [place] | | | | | [address] [place], [place] | [address] | | | | | [address] | | | | | | [phone] | | | +--------+ + + + + Social History + +-------+ +--------+------+ | Tobacco Use | Types | Packs/Day | Years | Date | | | | | Used | | + +-------+ +--------+------+ | Former Smoker | | | | | + +-------+ +--------+------+ + + +---------+ + | Alcohol Use | Drinks/Week | oz/Week | Comments | + + +---------+ + | No | | | | + + +---------+ + + + + | Sex Assigned at | Date Recorded | | | | + + + | Not on file | | + + + + + + + | Job Start Date | Occupation | Industry | + + + + | Not on file | Not on file | Not on file | + + + + + + + + | Travel History | Travel Start | Travel End | + + + + + + | No recent travel history available. | + + documented as of this encounter Plan of Treatment +--------+---------+ + + + | Date | Type | Specialty | Care Team | Description | +--------+---------+ + + + | 12/06/ | Office | Nephrology | Farrukh Acuna MD | | | 2020 | Visit | | [address] [facility] | | | | | | [address] [place] | | | | | | [address] | | | | | | | | +--------+---------+ + + + documented as of this encounter Procedures + +--------+ + + + | Procedure Name | Priori | Date/Time | Associated Diagnosis | Comments | | | ty | | | | + +--------+ + + + | BASIC METABOLIC | Routin | 07/14/2018 | | Results for this | | PANEL | e | 12:00 AM | | procedure are in the | | | | PDT | | results section. | + +--------+ + + + documented in this encounter Results Basic Metabolic Panel (07/14/2018 12:00 AM PDT) + + + + + + | Component | Value | Ref Range | Performed | Pathologist | | | | | At | Signature | + + + + + + | Glucose, | 48 (A) | 70 - 100 mg/dL | EXTERNAL | | | Fasting | | | LAB | | + + + + + + | BUN | 48 (A) | 6 - 23 mg/dL | EXTERNAL | | | | | | LAB | | + + + + + + | Creatinine | 3.40 (A) | 0.70 - 1.18 | EXTERNAL | | | | | mg/dL | LAB | | + + + + + + | BUN/Creatin | 14.1 | 6.0 - 28.6 | EXTERNAL | | | ine Ratio | | | LAB | | + + + + + + | Calcium | 8.3 (A) | 8.5 - 10.3 | EXTERNAL | | | | | mg/dL | LAB | | + + + + + + | Na | 142 | 132 - 143 | EXTERNAL | | | | | mmol/L | LAB | | + + + + + + | K | 4.2 | 3.6 - 5.1 | EXTERNAL | | | | | mmol/L | LAB | | + + + + + + | Cl | 108 | 95 - 112 mmol/L | EXTERNAL | | | | | | LAB | | + + + + + + | CO2 | 16 (A) | 19 - 31 mmol/L | EXTERNAL | | | | | | LAB | | + + + + + + | Anion Gap | 22.2 (A) | 7 - 21 mmol/L | EXTERNAL | | | | | | LAB | | + + + + + + | Estimated | 18 | mg/dL | EXTERNAL | | | GFR | | | LAB | | + + + + + + + + | Specimen | + + | Blood specimen | | (specimen) | + + + +---------+ + + | Performing | Address | City/State/Zipcode | Phone Number | | Organization | | | | + +---------+ + + | EXTERNAL LAB | | | | + +---------+ + + documented in this encounter Visit Diagnoses Not on filedocumented in this encounter"
--- OUTSIDE RECORDS SUMMARY | ~2019-11-04 | XMS | Encounter Summary ---
Demographics + + + | Address | [address] | | | [place] [address] | + + + | Home Phone | | + + + | Preferred Language | Unknown | + + + | Marital Status | | + + + | Yarsanism Affiliation | 1077 | + + + | Race | Unknown | + + + | Ethnic Group | Unknown | + + + Author + + + | Author | [facility] | | | and [place] | + + + | Organization | [facility] | | | [...] Team Providers + +------+ + | Care Information Assistant Name | Role | Phone | + +------+ + | Rahul Silva MD | PCP | | + +------+ + Encounter Details +--------+ + + + + | Date | Type | Department | Care Team | Description | +--------+ + + + + | 08/19/ | Orders Only | [facility] | Farrukh Acuna MD | | | 2018 | | NEPHROLOGY [place] | [address] [place] | | | | | [address] [place] | [address] [place], [place] | | | | | [address] [place], [place] | [address] | | | | | [address] | | | | | | [phone] | | | +--------+ + + + [...] 2020 | Visit | | [address] [facility] | | | | | | [address] [place] | | | | | | [address] | | | | | | | | +--------+---------+ + + + documented as of this encounter Procedures + +--------+ + + + | Procedure Name | Priori | Date/Time | Associated Diagnosis | Comments | | | ty | | | | + +--------+ + + + | EXTERNAL LAB: CBC | Routin | 08/19/2018 | | Results for this | | | e | 5:11 PM | | procedure are in the | | | | PDT | | results section. | + +--------+ + + + | IRON AND IRON | Routin | 08/19/2018 | | Results for this | | BINDING CAPACITY | e | 5:11 PM | | procedure are in the | | | | PDT | | results section. | + +--------+ + + + | PROTEIN/CREATININE | Routin | 08/19/2018 | | Results for this | | RATIO, URINE | e | 5:11 PM | | procedure are in the | | | | PDT | | results section. | + +--------+ + + + | PARATHYROID HORMONE, | Routin | 08/19/2018 | | Results for this | | INTACT | e | 5:11 PM | | procedure are in the | | | | PDT | | results section. | + +--------+ + + + | MAGNESIUM | Routin | 08/19/2018 | | Results for this | | | e | 5:11 PM | | procedure are in the | | | | PDT | | results section. | + +--------+ + + + | FERRITIN | Routin | 08/19/2018 | | Results for this | | | e | 5:11 PM | | procedure are in the | | | | PDT | | results section. | + +--------+ + + + documented in this encounter Results Iron and Iron Binding Capacity (08/19/2018 5:11 PM PDT) + +--------+ + + + | Component | Value | Ref Range | Performed | Pathologist | | | | | At | Signature | + +--------+ + + + | Iron | 44.58 | 37 - 160 | EXTERNAL | | | | | | LAB | | + +--------+ + + + | Iron | 16 (A) | 20 - 55 | EXTERNAL | | | Saturation | | | LAB | | + +--------+ + + + | TIBC | 278 | 245 - 400 | EXTERNAL | | | | | | LAB | | + +--------+ + + + + + | Specimen | + + | Blood specimen | | (specimen) | + + + +---------+ + + | Performing | Address | City/State/Zipcode | Phone Number | | Organization | | | | + +---------+ + + | EXTERNAL LAB | | | | + +---------+ + + Protein/Creatinine Ratio, Urine (08/19/2018 5:11 PM PDT) + + + + + + | Component | Value | Ref Range | Performed | Pathologist | | | | | At | Signature | + + + + + + | Protein/Cre | 2966.1 (A) | 0 - 150 | EXTERNAL | | | at Ratio | | | LAB | | + + + + + + + + | Specimen | + + | Urine specimen | | (specimen) | + + + +---------+ + + | Performing | Address | City/State/Zipcode | Phone Number | | Organization | | | | + +---------+ + + | EXTERNAL LAB | | | | + +---------+ + + External Lab: CBC (08/19/2018 5:11 PM PDT) + + + + + + | Component | Value | Ref Range | Performed | Pathologist | | | | | At | Signature | + + + + + + | WBC | 8.0 | 4.5 - 11.0 10 | EXTERNAL | | | | | | LAB | | + + + + + + | RED CELL | 3.4 (A) | 4.3 - 5.7 10 | EXTERNAL | | | COUNT | | | LAB | | + + + + + + | Hgb | 10.1 (A) | 13.5 - 18.0 | EXTERNAL | | | | | g/dL | LAB | | + + + + + + | Hematocrit, | 30.2 (A) | 41 - 50 % | EXTERNAL | | | POC | | | LAB | | + + + + + + | MCV | 88.7 | 81 - 99 fL | EXTERNAL | | | | | | LAB | | + + + + + + | MCH | 30 | 27 - 33 pg | EXTERNAL | | | | | | LAB | | + + + + + + | MCHC | 33 | 30 - 36 g/dL | EXTERNAL | | | | | | LAB | | + + + + + + | Platelet | 221 | 140 - 440 K/ L | EXTERNAL | | | Count | | | LAB | | | Plasma | | | | | + + + + + + | RDW-CV | 15 | 10.5 - 15.0 % | EXTERNAL | | | | | | LAB | | + + + + + + | MPV | | fL | EXTERNAL | | | | | | LAB | | + + + + + + | Differentia | | | EXTERNAL | | | l Type | | | LAB | | + + + + + + | % Segmented | | % | EXTERNAL | | | | | | LAB | | | Neutrophils | | | | | + + + + + + | % | | % | EXTERNAL | | | Lymphocytes | | | LAB | | + + + + + + | % Monocytes | | % | EXTERNAL | | | | | | LAB | | + + + + + + | % | | % | EXTERNAL | | | Eosinophils | | | LAB | | + + + + + + | % Basophils | | % | EXTERNAL | | | | | | LAB | | + + + + + + | Absolute | | / L | EXTERNAL | | | Segmented | | | LAB | | | Neutrophils | | | | | + + + + + + | Absolute | | / L | EXTERNAL | | | Lymphocytes | | | LAB | | + + + + + + | Absolute | | / L | EXTERNAL | | | Monocytes | | | LAB | | + + + + + + | Absolute | | / L | EXTERNAL | | | Eosinophils | | | LAB | | + + + + + + | Absolute | | / L | EXTERNAL | | | Basophils | | | LAB | | + [...] + +---------+ + + Parathyroid Hormone, Intact (08/19/2018 5:11 PM PDT) + + + + + + | Component | Value | Ref Range | Performed | Pathologist | | | | | At | Signature | + + + + + + | PTH INTACT | 294.6 (A) | 15 - 65 pg/mL | [...] | | + +---------+ + + Magnesium (08/19/2018 5:11 PM PDT) + +---------+ + + + | Component | Value | Ref Range | Performed | Pathologist | | | | | At | Signature | + +---------+ + + + | Magnesium | 1.6 (A) | 1.7 - 2.5 mg/dL | [...] | | | + +---------+ + + Ferritin (08/19/2018 5:11 PM PDT) + +-------+ + + + | Component | Value | Ref Range | Performed | Pathologist | | | | | At | Signature | + +-------+ + + + | Ferritin, | 135.8 | 30 - 400 ng/mL | EXTERNAL | | | External | | | LAB | | + [...]
--- OUTSIDE RECORDS SUMMARY | ~2019-11-04 | XMS | Encounter Summary ---
Demographics + + + | Address | [address] | | | [place] [address] | + + + | Home Phone | | + + + | Preferred Language | Unknown | + + + | Marital Status | | + + + | Yazidi Affiliation | 1077 | + + + | Race | Unknown | + + + | Ethnic Group | Unknown | + + + Author + + + | Author | [facility] | | | and [place] | + + + | Organization | [facility] | | | [...] + +------+ + | Care Director Of Professional Services Name | Role | Phone | + +------+ + | Rahul Silva MD | PCP | | + +------+ + Encounter Details +--------+ + + + + | Date | Type | Department | Care Team | Description | +--------+ + + + + | 10/10/ | Orders Only | [facility] | Farrukh Acuna MD | | | 2013 | | [facility]PHROLOG[facility] [place] | [address] [place] | | | | | [address] [place] | [address] [place], [place] | | | | | [address] [place], [place] | [address] | | | | | [address] | | | | | | [phone] | | | +--------+ + + + [...] 2019 | Visit | | [address] [facility] | | | | | | [address] [place] | | | | | | [address] | | | | | | | | +--------+---------+ + + + documented as of this encounter Procedures + +--------+ + + + | Procedure Name | Priori | Date/Time | Associated Diagnosis | Comments | | | ty | | | | + +--------+ + + + | EXTERNAL LAB: CBC | Routin | 10/10/2014 | | Results for this | | | e | 12:00 AM | | procedure are in the | | | | PST | | results section. | + +--------+ + + + | IRON AND IRON | Routin | 10/10/2014 | | Results for this | | BINDING CAPACITY | e | 12:00 AM | | procedure are in the | | | | PST | | results section. | + +--------+ + + + | URINALYSIS WITH | Routin | 10/10/2014 | | Results for this | | MICROSCOPIC WITH | e | 12:00 AM | | procedure are in the | | CULTURE IF INDICATED | | PST | | results section. | + +--------+ + + + | VITAMIN D, | Routin | 10/10/2014 | | Results for this | | DEFICIENCY SCREEN | e | 12:00 AM | | procedure are in the | | (25-HYDROXY) | | PST | | results section. | + +--------+ + + + | PARATHYROID HORMONE, | Routin | 10/10/2014 | | Results for this | | INTACT AND CALCIUM | e | 12:00 AM | | procedure are in the | | | | PST | | results section. | + +--------+ + + + | PROTEIN/CREATININE | Routin | 10/10/2014 | | Results for this | | RATIO, URINE | e | 12:00 AM | | procedure are in the | | | | PST | | results section. | + +--------+ + + + | PROTEIN, URINE, | Routin | 10/10/2014 | | Results for this | | RANDOM | e | 12:00 AM | | procedure are in the | | | | PST | | results section. | + +--------+ + + + | CREATININE, URINE, | Routin | 10/10/2014 | | Results for this | | RANDOM | e | 12:00 AM | | procedure are in the | | | | PST | | results section. | + +--------+ + + + | URIC ACID | Routin | 10/10/2014 | | Results for this | | | e | 12:00 AM | | procedure are in the | | | | PST | | results section. | + +--------+ + + + | TRANSFERRIN | Routin | 10/10/2014 | | Results for this | | | e | 12:00 AM | | procedure are in the | | | | PST | | results section. | + +--------+ + + + | MAGNESIUM | Routin | 10/10/2014 | | Results for this | | | e | 12:00 AM | | procedure are in the | | | | PST | | results section. | + +--------+ + + + | FERRITIN | Routin | 10/10/2014 | | Results for this | | | e | 12:00 AM | | procedure are in the | | | | PST | | results section. | + +--------+ + + + | RENAL FUNCTION PANEL | Routin | 10/10/2014 | | Results for this | | | e | 12:00 AM | | procedure are in the | | | | PST | | results section. | + +--------+ + + + documented in this encounter Results Urinalysis with Microscopic with Culture if Indicated (10/10/2014 12:00 AM PST) + + + + + + | Component | Value | Ref Range | Performed | Pathologist | | | | | At | Signature | + + + + + + | Color | Yellow | | EXTERNAL | | | | | | LAB | | + + + + + + | Clarity | Clear | | EXTERNAL | | | | | | LAB | | + + + + + + | Spec Grav, | 1.011 | 1.005 - 1.030 | EXTERNAL | | | Fluid | | | LAB | | + + + + + + | Leukocyte | 1+Comment: 25 | | EXTERNAL | | | Esterase, [...] + + + + + + | Total | Negative | | EXTERNAL | | | Protein | | | LAB | | + + + + + + | pH, Urine | 5 | 5 - 9 | EXTERNAL | [...] + + + + | Bilirubin, | 3+Comment: 300 | | EXTERNAL | | | Urine | | | LAB | | + + + + + + | Glucose, | Negative | | EXTERNAL | | | Urine | | | LAB | | + + + + + + | WBC, UA | | | EXTERNAL | | | | | | LAB | | + + + + + + | RBC, UA | | | EXTERNAL | | | | | | LAB | | + + + + + + | Epithelial | | | EXTERNAL | | | Cells | | | LAB | | + + + + + + | Bacteria, | | | EXTERNAL | | | UA | | | LAB | | + + + + + + | HYALINE | | | EXTERNAL | | | CASTS UA | | | LAB | | + + + + + + + + | Specimen | + + | | + + + +---------+ + + | Performing | Address | City/State/Zipcode | Phone Number | | Organization | | | | + +---------+ + + | EXTERNAL LAB | | | | + +---------+ + + Iron and Iron Binding Capacity (10/10/2014 12:00 AM PST) + +-------+ + + + | Component | Value | Ref Range | Performed | Pathologist | | | | | At | Signature | + +-------+ + + + | Iron | 60 | 37 - 160 | EXTERNAL | | | | | | LAB | | + +-------+ + + + | Iron | 21.0 | 20 - 55 | EXTERNAL | | | Saturation | | | LAB | | + +-------+ + + + | TIBC | 286 | 245 - 400 | EXTERNAL | [...] + +---------+ + + Parathyroid Hormone, Intact and Calcium (10/10/2014 12:00 AM PST) + + + + + + | Component | Value | Ref Range | Performed | Pathologist | | | | | At | Signature | + + + + + + | PTH Intact | 66.67 (A) | 15 - 65 | EXTERNAL | | | | | | LAB | | + + + + + + | Calcium | 8.8 | 8.4 - 10.2 | EXTERNAL | [...] + +---------+ + + Protein/Creatinine Ratio, Urine (10/10/2014 12:00 AM PST) + + + + + + | Component | Value | Ref Range | Performed | Pathologist | | | | | At | Signature | + + + + + + | Protein/Cre | 462.7 (A) | 0 - 150 | EXTERNAL [...] | | | + +---------+ + + Protein, Urine, Random (10/10/2014 12:00 AM PST) + +-------+ + + + | Component | Value | Ref Range | Performed | Pathologist | | | | | At | Signature | + +-------+ + + + | Protein, | 31 | 0.0 - 50.0 | EXTERNAL | | | Urine | [...] | | | + +---------+ + + Creatinine, Urine, Random (10/10/2014 12:00 AM PST) + +-------+ + + + | Component | Value | Ref Range | Performed | Pathologist | | | | | At | Signature | + +-------+ + + + | Creatinine, | 67 | | EXTERNAL | | | 24H Ur | | | LAB | | + [...] + + Vitamin D, Deficiency Screen (25-Hydroxy) (10/10/2014 12:00 AM PST) + +--------+ + + + | Component | Value | Ref Range | Performed | Pathologist | | | | | At | Signature | + +--------+ + + + | Vit D, | 18 (A) | 30 - 100 | EXTERNAL [...] + +---------+ + + External Lab: CBC (10/10/2014 12:00 AM PST) + + + + + + | Component | Value | Ref Range | Performed | Pathologist | | | | | At | Signature | + + + + + + | WBC | 9.0 | 4.5 - 11.0 10 | EXTERNAL | | | | | | LAB | | + + + + + + | RED CELL | 3.41 (A) | 4.3 - 5.7 10 | EXTERNAL | | | COUNT | | | LAB | | + + + + + + | Hgb | 10.6 (A) | 13.5 - 18.0 | EXTERNAL | | | | | g/dL | LAB | | + + + + + + | Hematocrit, | 31.4 (A) | 41 - 50 % | EXTERNAL | | | POC | | | LAB | | + + + + + + | MCV | 92.0 | 81 - 99 fL | EXTERNAL | | | | | | LAB | | + + + + + + | MCH | 31 | 27 - 33 pg | EXTERNAL | | | | | | LAB | | + + + + + + | MCHC | 34 | 30 - 36 g/dL | EXTERNAL | | | | | | LAB | | + + + + + + | Platelet | 310 | 140 - 440 K/ L | EXTERNAL | | | Count | | | LAB | | | Plasma | | | | | + + + + + + | RDW-CV | 14.5 | 10.5 - 15.0 % | EXTERNAL | | | | | | LAB | | + + + + + + | MPV | | fL | EXTERNAL | | | | | | LAB | | + + + + + + | Differentia | Auto | | EXTERNAL | | | l Type | | | LAB | | + + + + + + | % Segmented | 74.8 | 39 - 80 % | EXTERNAL | | | | | | LAB | | | Neutrophils | | | | | + + + + + + | % | 12.0 (A) | 24 - 44 % | EXTERNAL | | | Lymphocytes | | | LAB | | + + + + + + | % Monocytes | 7.8 | 0 - 12 % | EXTERNAL | | | | | | LAB | | + + + + + + | % | 4.9 | 0 - 6 % | EXTERNAL | | | Eosinophils | | | LAB | | + + + + + + | % Basophils | 0.5 | 0 - 2 % | EXTERNAL | | | | [...] | + +---------+ + + Uric Acid (10/10/2014 12:00 AM PST) + +---------+ + + + | Component | Value | Ref Range | Performed | Pathologist | | | | | At | Signature | + +---------+ + + + | Uric Acid | 8.1 (A) | 4.4 - 7.6 | EXTERNAL | [...] | | | + +---------+ + + Transferrin (10/10/2014 12:00 AM PST) + +-------+ + + + | Component | Value | Ref Range | Performed | Pathologist | | | | | At | Signature | + +-------+ + + + | TRANSFERRIN | 204 | 180 - 329 | EXTERNAL | | | | | [...] | | + +---------+ + + Magnesium (10/10/2014 12:00 AM PST) + +-------+ + + + [...] | | + +---------+ + + Ferritin (10/10/2014 12:00 AM PST) + +-------+ + + + | Component | Value | Ref Range | Performed | Pathologist | | | | | At | Signature | + +-------+ + + + | Ferritin, | 99.50 | 30 - 400 ng/mL | EXTERNAL [...] + +---------+ + + Renal Function Panel (10/10/2014 12:00 AM PST) + + + + + + | Component | Value | Ref Range | Performed | Pathologist | | | | | At | Signature | + + + + + + | Glucose, | 299 (A) | 70 - 100 mg/dL | EXTERNAL | | | Fasting | | | LAB | | + + + + + + | BUN | 31 (A) | 6 - 23 mg/dL | EXTERNAL | | | | | | LAB | | + + + + + + | Creatinine | 1.95 (A) | 0.70 - 1.18 | EXTERNAL | | | | | mg/dL | LAB | | + + + + + + | PHOSPHORUS | | mg/dL | EXTERNAL | | | | | | LAB | | + + + + + + | Albumin | 3.4 (A) | 3.5 - 5.0 | EXTERNAL | | | | | | LAB | | + + + + + + | Na | 132 | 132 - 143 | EXTERNAL | | | | | mmol/L | LAB | | + + + + + + | K | 5.0 | 3.6 - 5.1 | EXTERNAL | | | | | mmol/L | LAB | | + + + + + + | Cl | 101 | 95 - 112 mmol/L | EXTERNAL | | | | | | LAB | | + + + + + + | CO2 | 22 | 19 - 31 mmol/L | EXTERNAL | | | | | | LAB | | + + + + + + | Anion Gap | 14.0 | 7 - 21 mmol/L | EXTERNAL | | | | | | LAB | | + + + + + + | eGFR if not | | | EXTERNAL | | | | | | LAB | | | [place] | | | | | + + + + + + | Phosphorus, | 3.2 | 2.5 - 5.0 | EXTERNAL | | | Inorganic | | | LAB | | + + + + + + | BUN/Creatin | 15.9 | 6.0 - 28.6 | EXTERNAL | | | ine Ratio | | | LAB | | + + + + + + | Calcium | 8.8 | 8.4 - 10.2 | EXTERNAL | | | | | mg/dL | LAB | | + + + + + + | Estimated | 34 | mg/dL | EXTERNAL | | | [...]
--- OUTSIDE RECORDS SUMMARY | ~2019-11-04 | XMS | Encounter Summary ---
Demographics + + + | Address | [address] | | | [place] [address] | + + + | Home Phone | | + + + | Preferred Language | Unknown | + + + | Marital Status | | + + + | Confucianism Affiliation | 1077 | + + + | Race | Unknown | + + + | Ethnic Group | Unknown | + + + Author + + + | Author | [facility] | | | and [place] | + + + | Organization | [facility] | | | and [...] Team Providers + +------+ + | Care Bed Spring Maker Name | Role | Phone | + +------+ + | Rahul Silva MD | PCP | | + +------+ + Encounter Details +--------+ + + + + | Date | Type | Department | Care Team | Description | +--------+ + + + + | 11/09/ | Orders Only | [facility] | Olman Toussaint MD | | | 2016 | | [address] | [address] | | | | | [place], [place] | [place], [place] | | | | | [address] | [address] | | | | | [phone] | [phone] | | | | | | | [...] 2020 | Visit | | [address] [facility] | | | | | | [address] [facility] | | | | | | [address] | | | | | | | | +--------+---------+ + + + documented as of this encounter Procedures + +--------+ + + + | Procedure Name | Priori | Date/Time | Associated Diagnosis | Comments | | | ty | | | | + +--------+ + + + | EXTERNAL LAB: CBC | Routin | 11/09/2016 | | Results for this | | | e | 4:37 AM | | procedure are in the | | | | PST | | results section. | + +--------+ + + + documented in this encounter Results External Lab: CBC (11/09/2016 4:37 AM PST) + + + + + + | Component | Value | Ref Range | Performed | Pathologist | | | | | At | Signature | + + + + + + | WBC | 9.94 | 3.80 - 11.00 | EXTERNAL | | | | | 10*3/uL | LAB | | + + + + + + | RED CELL | 3.06 (L) | 4.20 - 5.70 | EXTERNAL | | | COUNT | | 10*6/uL | LAB | | + + + + + + | Hgb | 9.3 (L) | 13.2 - 17.0 | EXTERNAL | | | | | g/dL | LAB | | + + + + + + | Hematocrit, | 27.2 (L) | 39.0 - 50.0 % | EXTERNAL | | | POC | | | LAB | | + + + + + + | MCV | 88.8 | 80.0 - 100.0 fL | EXTERNAL | | | | | | LAB | | + + + + + + | MCH | 30.5 | 27.0 - 34.0 pg | EXTERNAL | | | | | | LAB | | + + + + + + | MCHC | 34.3 | 32.0 - 35.5 | EXTERNAL | | | | | g/dL | LAB | | + + + + + + | RDW-CV | 47.3 | 37 - 53 fL | EXTERNAL | | | | | | LAB | | + + + + + + | Platelet | 221 | 150 - 400 | EXTERNAL | | | Count | | 10*3/uL | LAB | | | Plasma | | | | | + + + + + + | MPV | 8.8 | fL | EXTERNAL | | | | | | LAB | | + + + + + + | Differentia | AUTOMATED | | EXTERNAL | | | l Type | | | LAB | | + + + + + + | % Segmented | 75.91 | % | EXTERNAL | | | | | | LAB | | | Neutrophils | | | | | + + + + + + | % | 7.43 | % | EXTERNAL | | | Lymphocytes | | | LAB | | + + + + + + | % Monocytes | 14.39 | % | EXTERNAL | | | | | | LAB | | + + + + + + | % | 1.52 | % | EXTERNAL | | | Eosinophils | | | LAB | | + + + + + + | % Basophils | 0.75 | % | EXTERNAL | | | | | | LAB | | + + + + + + | Absolute | 7.55 (H) | 1.90 - 7.40 | EXTERNAL | | | Segmented | | 10*3/uL | LAB | | | Neutrophils | | | | | + + + + + + | Absolute | 0.74 (L) | 1.00 - 3.90 | EXTERNAL | | | Lymphocytes | | 10*3/uL | LAB | | + + + + + + | Absolute | 1.43 (H) | 0.00 - 0.80 | EXTERNAL | | | Monocytes | | 10*3/uL | LAB | | + + + + + + | Absolute | 0.15 | 0.00 - 0.50 | EXTERNAL | | | Eosinophils | | 10*3/uL | LAB | | + + + + + + | Absolute | 0.07 | 0.00 - 0.10 | EXTERNAL | | | Basophils | | 10*3/uL | LAB | | + + + [...]
--- OUTSIDE RECORDS SUMMARY | ~2019-11-04 | XMS | Encounter Summary ---
Demographics + + + | Address | [address] | | | [place] [address] | + + + | Home Phone | | + + + | Preferred Language | Unknown | + + + | Marital Status | | + + + | Jainism Affiliation | 1077 | + + + | Race | Unknown | + + + | Ethnic Group | Unknown | + + + Author + + + | Author | [facility] | | | and [place] | + + + | Organization | [facility] | | | [...] Team Providers + +------+ + | Care Cardiology Physician Assistant Name | Role | Phone | + +------+ + | Rahul Silva MD | PCP | | + +------+ + Encounter Details +--------+ + + + + | Date | Type | Department | Care Team | Description | +--------+ + + + + | 10/08/ | Orders Only | [facility] | Farrukh Acuna MD | | | 2018 | | [facility]OLOG[facility] [place] | [address] [place] | | | | | [address] [place] | [address] [place], [place] | | | | | [address] [place], [place] | [address] | | | | | [address] | | | | | | [phone] | | | +--------+ + + + [...] 2020 | Visit | | [address] [facility] | | | | | | [address] [place] | | | | | | [address] | | | | | | | | +--------+---------+ + + + documented as of this encounter Procedures + +--------+ + + + | Procedure Name | Priori | Date/Time | Associated Diagnosis | Comments | | | ty | | | | + +--------+ + + + | CBC WITH MANUAL | Routin | 10/08/2018 | | Results for this | | DIFFERENTIAL | e | 12:00 AM | | procedure are in the | | | | PST | | results section. | + +--------+ + + + | IRON AND IRON | Routin | 10/08/2018 | | Results for this | | BINDING CAPACITY | e | 12:00 AM | | procedure are in the | | | | PST | | results section. | + +--------+ + + + | VITAMIN D, | Routin | 10/08/2018 | | Results for this | | DEFICIENCY SCREEN | e | 12:00 AM | | procedure are in the | | (25-HYDROXY) | | PST | | results section. | + +--------+ + + + | PROTEIN/CREATININE | Routin | 10/08/2018 | | Results for this | | RATIO, URINE | e | 12:00 AM | | procedure are in the | | | | PST | | results section. | + +--------+ + + + | PARATHYROID HORMONE, | Routin | 10/08/2018 | | Results for this | | INTACT | e | 12:00 AM | | procedure are in the | | | | PST | | results section. | + +--------+ + + + | MAGNESIUM | Routin | 10/08/2018 | | Results for this | | | e | 12:00 AM | | procedure are in the | | | | PST | | results section. | + +--------+ + + + | FERRITIN | Routin | 10/08/2018 | | Results for this | | | e | 12:00 AM | | procedure are in the | | | | PST | | results section. | + +--------+ + + + | RENAL FUNCTION PANEL | Routin | 10/08/2018 | | Results for this | | | e | 12:00 AM | | procedure are in the | | | | PST | | results section. | + +--------+ + + + documented in this encounter Results Iron and Iron Binding Capacity (10/08/2018 12:00 AM PST) + +-------+ + + + | Component | Value | Ref Range | Performed | Pathologist | | | | | At | Signature | + +-------+ + + + | Iron | 63.59 | 37 - 160 | EXTERNAL | | | | | | LAB | | + +-------+ + + + | Iron | 21.8 | 20 - 55 | EXTERNAL | | | Saturation | | | LAB | | + +-------+ + + + | TIBC | 292 | 245 - 400 | EXTERNAL | [...] + +---------+ + + Protein/Creatinine Ratio, Urine (10/08/2018 12:00 AM PST) + + + + + + | Component | Value | Ref Range | Performed | Pathologist | | | | | At | Signature | + + + + + + | Protein/Cre | 2522.7 (A) | 0 - 150 | EXTERNAL [...] + + Vitamin D, Deficiency Screen (25-Hydroxy) (10/08/2018 12:00 AM PST) + +-------+ + + + | Component | Value | Ref Range | Performed | Pathologist | | | | | At | Signature | + +-------+ + + + | Vit D, | 30 | 30 - 100 | EXTERNAL | [...] | + +---------+ + + CBC with Manual Differential (10/08/2018 12:00 AM PST) + + + + + + | Component | Value | Ref Range | Performed | Pathologist | | | | | At | Signature | + + + + + + | WBC | 8.3 | 4.5 - 11 10 | EXTERNAL | | | | | | LAB | | + + + + + + | RED CELL | 3.44 (A) | 4.3 - 5.7 10 | EXTERNAL | | | COUNT | | | LAB | | + + + + + + | Hgb | 10.2 (A) | 13.5 - 18 g/dL | EXTERNAL | | | | | | LAB | | + + + + + + | Hematocrit, | 30.5 (A) | 41 - 50 % | [...] | RDW-CV | 14.5 | 10.5 - 15 % | EXTERNAL | | | | | | LAB | | + + + + + + | Platelet | | K/ L | EXTERNAL | | | [...] / L | EXTERNAL | | | Neutrophils | | | LAB | | + [...] + +---------+ + + Parathyroid Hormone, Intact (10/08/2018 12:00 AM PST) + + + + + + | Component | Value | Ref Range | Performed | Pathologist | | | | | At | Signature | + + + + + + | PTH INTACT | 229.4 (A) | 15 - 65 pg/mL | [...] | | + +---------+ + + Magnesium (10/08/2018 12:00 AM PST) + +---------+ + + [...] | | + +---------+ + + Ferritin (10/08/2018 12:00 AM PST) + +-------+ + + + | Component | Value | Ref Range | Performed | Pathologist | | | | | At | Signature | + +-------+ + + + | Ferritin, | 126.7 | 30 - 400 ng/mL | EXTERNAL [...] + +---------+ + + Renal Function Panel (10/08/2018 12:00 AM PST) + + + + + + | Component | Value | Ref Range | Performed | Pathologist | | | | | At | Signature | + + + + + + | Glucose, | 190 (A) | 70 - 100 mg/dL | EXTERNAL | | | Fasting | | | LAB | | + + + + + + | BUN | 44 (A) | 6 - 23 mg/dL | EXTERNAL | | | | | | LAB | | + + + + + + | Creatinine | 2.94 (A) | 0.70 - 1.18 | EXTERNAL | | | | | mg/dL | LAB | | + + + + + + | PHOSPHORUS | 5.7 (A) | 2.5 - 5.0 mg/dL | EXTERNAL | | | | | | LAB | | + + + + + + | Albumin | 3.2 (A) | 3.5 - 5.0 | EXTERNAL | | | | | | LAB | | + + + + + + | Na | 140 | 132 - 143 | EXTERNAL | | | | | mmol/L | LAB | | + + + + + + | K | 4.4 | 3.6 - 5.1 | EXTERNAL | [...] + + + | Anion Gap | 17.4 | 7 - 21 mmol/L | EXTERNAL | | | | | | LAB | | + + + + + + | eGFR if not | | | EXTERNAL | | | | | | LAB | | | [place] | | | | | + + + + + + | Phosphorus, | | | EXTERNAL | | | Inorganic | | | LAB | | + + + + + + | BUN/Creatin | 15 | 6 - 28.6 | EXTERNAL | | | ine Ratio | | | LAB | | + + + + + + | Calcium | 8.1 (A) | 8.5 - 10.3 | EXTERNAL | | | | | mg/dL | LAB | | + + + + + + | Estimated | 21 | mg/dL | EXTERNAL | | | [...]
--- OUTSIDE RECORDS SUMMARY | ~2019-11-04 | XMS | Encounter Summary ---
Demographics + + + | Address | [address] | | | [place] [address] | + + + | Home Phone | | + + + | Preferred Language | Unknown | + + + | Marital Status | | + + + | Shinto Affiliation | 1077 | + + + | Race | Unknown | + + + | Ethnic Group | Unknown | + + + Author + + + | Author | [facility] | | | and [place] | + + + | Organization | [facility] | | [...] Team Providers + +------+ + | Care Retoucher Photoengraving Name | Role | Phone | + [...] | | | 2015 | | [address] | [address] | | | | | [place], [place] | [place], [place] | | | | | [address] | [address] | | | | | [phone] | [phone] | | | | | | | [...] 2020 | Visit | | [address] [facility] | | | | | | [address] [facility] | | | | | | [address] | | | | | | | | +--------+---------+ + + + documented as of this encounter Procedures + +--------+ + + + | Procedure Name | Priori | Date/Time | Associated Diagnosis | Comments | | | ty | | | | + +--------+ + + + | SEDIMENTATION RATE, | Routin | 11/08/2016 | | Results for this | | AUTOMATED | e | 4:37 AM | | procedure are in the | | | | PST | | results section. | + +--------+ + + + documented in this encounter Results Sedimentation rate, automated (11/08/2016 4:37 AM PST) + +--------+ + + + | Component | Value | Ref Range | Performed | Pathologist | | | | | At | Signature | + +--------+ + + + | Sed Rate | 21 (H) | 0 - 20 mm/h | EXTERNAL | | | | | [...]
--- OUTSIDE RECORDS SUMMARY | ~2019-11-04 | XMS | Encounter Summary ---
Demographics + + + | Address | [address] | | | [place] [address] | + + + | Home Phone | | + + + | Preferred Language | Unknown | + + + | Marital Status | | + + + | Spiritism Affiliation | 1077 | + + + | Race | Unknown | + + + | Ethnic Group | Unknown | + + + Author + + + | Author | [facility] | | | and [place] | + + + | Organization | [facility] | | [...] Providers + +------+ + | Care Senior Oracle Database Developer Name | Role | Phone | + +------+ + | Rahul Silva MD | PCP | | + +------+ + Encounter Details +--------+ + + + + | Date | Type | Department | Care Team | Description | +--------+ + + + + | 01/23/ | Orders Only | [facility] | Collin Mirza, | | | 2015 | | NEPHROLOGY [place] | [address] | | | | | [address] [place] | [address] | | | | | [address] [place], [place] | [place] | | | | | [address] | [address] | | | | | [phone] | [phone] | | | | | | | [...] 2020 | Visit | | [address] [facility] | | | | | | [address] [place], [place] | | | | | | [address] | | | | | | | | +--------+---------+ + + + documented as of this encounter Procedures + +--------+ + + + | Procedure Name | Priori | Date/Time | Associated Diagnosis | Comments | | | ty | | | | + +--------+ + + + | EXTERNAL LAB: CBC | Routin | 01/23/2016 | | Results for this | | | e | 12:00 AM | | procedure are in the | | | | PST | | results section. | + +--------+ + + + | VITAMIN D, | Routin | 01/23/2016 | | Results for this | | DEFICIENCY SCREEN | e | 12:00 AM | | procedure are in the | | (25-HYDROXY) | | PST | | results section. | + +--------+ + + + | PARATHYROID HORMONE, | Routin | 01/23/2016 | | Results for this | | INTACT AND CALCIUM | e | 12:00 AM | | procedure are in the | | | | PST | | results section. | + +--------+ + + + | URIC ACID | Routin | 01/23/2016 | | Results for this | | | e | 12:00 AM | | procedure are in the | | | | PST | | results section. | + +--------+ + + + | MAGNESIUM | Routin | 01/23/2016 | | Results for this | | | e | 12:00 AM | | procedure are in the | | | | PST | | results section. | + +--------+ + + + | RENAL FUNCTION PANEL | Routin | 01/23/2016 | | Results for this | | | e | 12:00 AM | | procedure are in the | | | | PST | | results section. | + +--------+ + + + documented in this encounter Results Parathyroid Hormone, Intact and Calcium (01/23/2016 12:00 AM PST) + +-------+ + + + | Component | Value | Ref Range | Performed | Pathologist | | | | | At | Signature | + +-------+ + + + | PTH Intact | 39.58 | 15 - 65 | EXTERNAL | | | | | | LAB | | + +-------+ + + + | Calcium | 8.8 [...] + + Vitamin D, Deficiency Screen (25-Hydroxy) (01/23/2016 12:00 AM PST) + +-------+ + + + | Component | Value | Ref Range | Performed | Pathologist | | | | | At | Signature | + +-------+ + + + | Vit D, | 57 | 30 - 100 | EXTERNAL | [...] + +---------+ + + External Lab: CBC (01/23/2016 12:00 AM PST) + + + + + + | Component | Value | Ref Range | Performed | Pathologist | | | | | At | Signature | + + + + + + | WBC | 10.9 | 4.5 - 11.0 10 | EXTERNAL | | | | | | LAB | | + + + + + + | RED CELL | 3.53 (A) | 4.3 - 5.7 10 | EXTERNAL | | | COUNT | | | LAB | | + + + + + + | Hgb | 10.7 (A) | 13.5 - 18.0 | EXTERNAL | | | | | g/dL | LAB | | + + + + + + | Hematocrit, | 32.2 (A) | 41 - 50 % | [...] + + + + | Platelet | 260 | 140 - 440 K/ L | EXTERNAL | | | Count | | | LAB | | | Plasma | | | | | + + + + + + | RDW-CV | 14.8 | 10.5 - 15.0 % | EXTERNAL [...] + + + | % Segmented | 73.8 | 39 - 80 % | EXTERNAL | | | | | | LAB | | | Neutrophils | | | | | + + + + + + | % | 11.9 (A) | 24 - 44 % | EXTERNAL | | | Lymphocytes | | | LAB | | + + + + + + | % Monocytes | 8.7 | 0 - 12 % | EXTERNAL | | | | | | LAB | | + + + + + + | % | 4.9 | 0 - 6 % | EXTERNAL | | | Eosinophils | | | LAB | | + + + + + + | % Basophils | 0.7 | 0 - 2 % | EXTERNAL [...] | + +---------+ + + Uric Acid (01/23/2016 12:00 AM PST) + +---------+ + + + | Component | Value | Ref Range | Performed | Pathologist | | | | | At | Signature | + +---------+ + + + | Uric Acid | 7.9 (A) | 4.4 - 7.6 | EXTERNAL [...] | | + +---------+ + + Magnesium (01/23/2016 12:00 AM PST) + +-------+ + + + | Component | Value | Ref Range | Performed | Pathologist | | | | | At | Signature | + +-------+ + + + | Magnesium | 2.4 | 1.7 - 2.4 mg/dL | EXTERNAL [...] + +---------+ + + Renal Function Panel (01/23/2016 12:00 AM PST) + + + + + + | Component | Value | Ref Range | Performed | Pathologist | | | | | At | Signature | + + + + + + | Glucose, | 176 (A) | 70 - 100 mg/dL | EXTERNAL | | | Fasting | | | LAB | | + + + + + + | BUN | 29 (A) | 6 - 23 mg/dL | EXTERNAL | | | | | | LAB | | + + + + + + | Creatinine | 1.48 (A) | 0.70 - 1.18 | EXTERNAL [...] + + + + | CO2 | 27 | 19 - 31 mmol/L | EXTERNAL | | | | | | LAB | | + + + + + + | Anion Gap | 15.2 | 7 - 21 mmol/L | EXTERNAL | | | | | | LAB | | + + + + + + | eGFR if not | | | EXTERNAL | | | | | | LAB | | | FRENCH | | | | | + + + + + + | Phosphorus, | 4.4 | 2.5 - 5.0 | EXTERNAL | | | Inorganic | | | LAB | | + + + + + + | BUN/Creatin | 19.6 | 6.0 - 28.6 | EXTERNAL | | | ine Ratio | | | LAB | | + + + + + + | Calcium | 8.8 | 8.4 - 10.2 | EXTERNAL | | | | | mg/dL | LAB | | + + + + + + | Estimated | 46 (A) | 60 - 140 mg/dL | [...]
--- OUTSIDE RECORDS SUMMARY | ~2019-11-04 | XMS | Encounter Summary ---
Demographics + + + | Address | [address] | | | [place] [address] | + + + | Home Phone | | + + + | Preferred Language | Unknown | + + + | Marital Status | | + + + | Caodaism Affiliation | 1077 | + + + | Race | Unknown | + + + | Ethnic Group | Unknown | + + + Author + + + | Author | [facility] | | | and [place] | + + + | Organization | [facility] | | | [...] Team Providers + +------+ + | Care Slab Inspector Name | Role | Phone | + +------+ + | Rahul Silva MD | PCP | | + +------+ + Encounter Details +--------+ + + + + | Date | Type | Department | Care Team | Description | +--------+ + + + + | 08/19/ | Orders Only | [facility] | Conversion | | | 2017 | | NEPHROLOGY [place] | Transaction, | | | | | [address] | Provider Unknown | | | | | [address] [place] | | | | | | [address] | (Fax) | | | | | [phone] | | | +--------+ + + + [...] 2020 | Visit | | [address] [facility] | | | | | | [address] [facility] | | | | | | [address] | | | | | | | | +--------+---------+ + + + documented as of this encounter Procedures + +--------+ + + + | Procedure Name | Priori | Date/Time | Associated Diagnosis | Comments | | | ty | | | | + +--------+ + + + | RENAL FUNCTION PANEL | Routin | 08/19/2018 | | Results for this | | | e | 5:11 PM | | procedure are in the | | | | PDT | | results section. | + +--------+ + + + documented in this encounter Results Renal Function Panel (08/19/2018 5:11 PM PDT) + + + + + + | Component | Value | Ref Range | Performed | Pathologist | | | | | At | Signature | + + + + + + | Glucose, | 151 (A) | 70 - 100 mg/dL | EXTERNAL | | | Fasting | | | LAB | | + + + + + + | BUN | 44 (A) | 6 - 23 mg/dL | EXTERNAL | | | | | | LAB | | + + + + + + | Creatinine | 2.98 (A) | 0.7 - 1.18 | EXTERNAL | | | | | mg/dL | LAB | | + + + + + + | PHOSPHORUS | 6.4 (A) | 2.5 - 5.0 mg/dL | EXTERNAL | | | | | | LAB | | + + + + + + | Albumin | 3.0 (A) | 3.5 - 5.0 | EXTERNAL | | | | | | LAB | | + + + + + + | Na | 137 | 132 - 143 | EXTERNAL | | | | | mmol/L | LAB | | + + + + + + | K | 4.1 | 3.6 - 5.1 | EXTERNAL | | | | | mmol/L | LAB | | + + + + + + | Cl | 107 | 95 - 112 mmol/L | EXTERNAL | | | | | | LAB | | + + + + + + | CO2 | 19 | 19 - 31 mmol/L | EXTERNAL | | | | | | LAB | | + + + + + + | Anion Gap | 15.1 | 7 - 21 mmol/L | EXTERNAL | | | | | | LAB | | + + + + + + | eGFR if not | | | EXTERNAL | | | | | | LAB | | | TRISTANIAN | | | | | + + + + + + | Phosphorus, | | | EXTERNAL | | | Inorganic | | | LAB | | + + + + + + | BUN/Creatin | 14.8 | 6.0 - 28.6 | EXTERNAL | | | ine Ratio | | | LAB | | + + + + + + | Calcium | 7.7 (A) | 8.5 - 10.3 | EXTERNAL | | | | | mg/dL | LAB | | + + + + + + | Estimated | 20 (A) | 60 mg/dL | EXTERNAL | [...]
--- OUTSIDE RECORDS SUMMARY | ~2019-11-04 | XMS | Encounter Summary ---
Demographics + + + | Address | [address] | | | [place] [address] | + + + | Home Phone | | + + + | Preferred Language | Unknown | + + + | Marital Status | | + + + | Jain Affiliation | 1077 | + + + [...] Team Providers + +------+ + | Care Investigative Assistant Name | Role | Phone | + +------+ + | Rahul Silva MD | PCP | | + +------+ + Encounter Details +--------+ + + + + | Date | Type | Department | Care Team | Description | +--------+ + + + + | 10/28/ | Orders Only | [facility] | Conversion | | | 2016 | | NEPHROLOGY [place] | Transaction, | | | | | [address] | Provider Unknown | | | | | [address] [place] | | | | | | [address] | (Fax) | | | | | [phone] | | | +--------+ + + + [...] 2020 | Visit | | [address] [facility] | | | | | | [address] [facility] | | | | | | [address] | | | | | | | | +--------+---------+ + + + documented as of this encounter Procedures + +--------+ + + + | Procedure Name | Priori | Date/Time | Associated Diagnosis | Comments | | | ty | | | | + +--------+ + + + | PROTEIN/CREATININE | Routin | 10/28/2017 | | Results for this | | RATIO, URINE | e | 12:00 AM | | procedure are in the | | | | PST | | results section. | + +--------+ + + + documented in this encounter Results Protein/Creatinine Ratio, Urine (10/28/2017 12:00 AM PST) + + + + + + | Component | Value | Ref Range | Performed | Pathologist | | | | | At | Signature | + + + + + + | Protein/Cre | 1750.0 (A) | 0 - 150 | EXTERNAL [...]
--- OUTSIDE RECORDS SUMMARY | ~2019-11-04 | XMS | Encounter Summary ---
Demographics + + + | Address | [address] | | | [place] [address] | + + + | Home Phone | | + + + | Preferred Language | Unknown | + + + | Marital Status | | + + + | Lutheran Affiliation | 1077 | + + + | Race | Unknown | + + + | Ethnic Group | Unknown | + + + Author + + + | Author | [facility] | | | and [place] | + + + | Organization | [facility] | | | [...] Team Providers + +------+ + | Care Ruffling Hemmer Automatic Name | Role | Phone | + +------+ + | Rahul Silva MD | PCP | | + +------+ + Encounter Details +--------+ + + + + | Date | Type | Department | Care Team | Description | +--------+ + + + + | 10/05/ | Orders Only | [facility] | Farrukh Acuna MD | Essential | | 2019 | | NEPHROLOGY [place] | [address] [place] | hypertension | | | | [address] | [address] [place], [place] | (Primary Dx); Iron | | | | [address] | [address] | deficiency; Anemia | | | | [place], [place] | | of chronic kidney | | | | [address] | | failure, stage 5 | | | | [phone] | | (HCC) | +--------+ + + [...] 2020 | Visit | | [address] [facility] | | | | | | [address] [place], [place] | | | | | | [address] | | | | | | | | +--------+---------+ + + + documented as of this encounter Visit Diagnoses + + | Diagnosis | + + | Essential hypertension - Primary Unspecified essential hypertension | + + | Iron deficiency Other disorders of iron metabolism | + + | Anemia of chronic kidney failure, stage 5 (HCC) | + + documented in this encounter"
--- OUTSIDE RECORDS SUMMARY | ~2019-11-04 | XMS | Encounter Summary ---
Demographics + + + | Address | [address] | | | [place] [address] | + + + | Home Phone | | + + + | Preferred Language | Unknown | + + + | Marital Status | | + + + | Evangelical Affiliation | 1077 | + + + [...] Team Providers + +------+ + | Care Plant And Machinery Valuer Name | Role | Phone | + [...] + + | 08/25/ | Telephone | [facility] | Brian Orosco MD | New Patient (08/26 | | 2019 | | VASCULAR SURGERY | [address] | appointment) | | | | [address] [place] | [place], [place] | | | | | [place], [place] | [address] | | | | | [address] | [phone] | | | | | [phone] | | | +--------+ + + + [...] 2020 | Visit | | [address] [facility] | | | | | | [address] [place] | | | | | | [address] | | | | | | | | +--------+---------+ + + + documented as of this encounter Visit Diagnoses Not on filedocumented in this encounter"
--- OUTSIDE RECORDS SUMMARY | ~2019-11-04 | XMS | Encounter Summary ---
Demographics + + + | Address | [address] | | | [place] [address] | + + + | Home Phone | | + + + | Preferred Language | Unknown | + + + | Marital Status | | + + + | Nondenominational Affiliation | 1077 | + + + [...] Team Providers + +------+ + | Care Elevator Runner Name | Role | Phone | + [...] + + | 09/03/ | Telephone | [facility] | Simon, | Lab Results | | 2019 | | NEPHROLOGY [place] | [facility] | | | | | [address] [place] | Stock Room Manager | | | | | [address] [place], [place] | | | | | | [address] | | | | | | [phone] | | | +--------+ + + + [...] 2020 | Visit | | [address] [facility] | | | | | | [address] [place] | | | | | | [address] | | | | | | | | +--------+---------+ + + + documented as of this encounter Visit Diagnoses Not on filedocumented in this encounter"
--- OUTSIDE RECORDS SUMMARY | ~2019-11-04 | XMS | Encounter Summary ---
Demographics + + + | Address | [address] | | | [place] [address] | + + + | Home Phone | | + + + | Preferred Language | Unknown | + + + | Marital Status | | + + + | Advent Affiliation | 1077 | + + + [...] Team Providers + +------+ + | Care Jewelry Sales Name | Role | Phone | + +------+ + | Rahul Silva MD | PCP | | + +------+ + Reason for Referral Diagnostic/Screening (Routine) +--------+--------+ + + + + | Status | Reason | Specialty | Diagnoses / | Referred By | Referred To | | | | | Procedures | Contact | Contact | +--------+--------+ + + + + | Closed | | Radiology | Diagnoses | Trisha Conner, | | | | | | ESRD (end | DNP [address] | | | | | | stage renal | [address] | | | | | | disease) | [place] | | | | | | ([facility]) | [place], [place] | | | | | | Procedures | [address] | | | | | | VAS Arm | Phone: | | | | | | Bilateral | [phone] | | | | | | Mapping For | Fax: | | | | | | Dialysis | [phone] | | +--------+--------+ + + + + Reason for Visit + + + | Reason | Comments | + + + | Referral Consult | | + + + Encounter Details +--------+ + + + + | Date | Type | Department | Care Team | Description | +--------+ + + + + | 07/30/ | Telephone | [facility] | Trisha Conner DNP | Referral Consult | | 2019 | | CARDIOTHORACIC | [address] | | | | | SURGERY [address] | [place], [place] | | | | | [address] | [address] | | | | | [place], [place] | | | | | | [address] | | | | | | [phone] | | | +--------+ + + + [...] 2020 | Visit | | [address] [facility] | | | | | | [address] [place] | | | | | | [address] | | | | | | | | +--------+---------+ + + + documented as of this encounter Results VAS Arm Bilateral Mapping For Dialysis (08/20/2019 1:58 PM PDT) + + | Specimen | + + | | + + + + + | Narrative | Performed At | + + + | UPPER EXTREMITY VEIN MAPPING CLINICAL INFORMATION: AVF | [facility] | | creation COMPARISON: None PROCEDURE: Duplex evaluation of | | | the arteries and veins of the upper extremities. FINDINGS: | | | Diameter/depth in mm: Right cephalic vein: Insertion: 3.0/10.0. | | | Upper humerus: 2.8/11.0. Mid humerus: 3.3/4.9. Elbow: 4.6/3.2. | | | Upper forearm: 2.6/3.1. Mid forearm: 2.5/2.7. Wrist: 1.7/2.6. | | | Right basilic vein: Upper humerus: 5.2/12.0. Mid humerus: 4.1/14.0. | | | Elbow: 4.6/4.3. Upper forearm: 2.6/3.7. Mid forearm: 3.1/1.3. | | | Wrist: 1.5/1.8. Right brachial vein: Upper humerus: 2.3. Mid | | | humerus: 3.3. Elbow: 2.4. Right axillary vein: 2.8. Right | | | brachial artery distal: 5.9. Right radial artery wrist: 3.0. Right | | | ulnar artery wrist: 2.3. Near occlusive thrombus in the mid right | | | cephalic vein. Left cephalic vein: Insertion: 3.2/10.8. Upper | | | humerus: 3.4/8.0. Mid humerus: 3.5/2.0. Elbow: 1.2/3.3. Upper | | | forearm to wrist: Too small. Left basilic vein: Upper humerus: | | | 9.1/17.7. Mid humerus: 6.5/16.2. Elbow: 4.8/5.1. Upper forearm: | | | 2.5/1.0. Mid forearm: 2.5/1.4. Wrist: 2.3/1.6 Left basilic vein: | | | Upper humerus: 3.7. Mid humerus: 3.2. Elbow: 4.9. Left | | | axillary vein: 6.4. Left brachial artery distal: 6.3. Left radial | | | artery wrist: 2.2. Left ulnar artery wrist: 2.7. 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 IMPRESSION: | | | Bilateral upper extremity dialysis mapping. Measurements above. | | | Near occlusive thrombus within the mid right cephalic vein. | | | Nonocclusive thrombus within the left subclavian vein proximally that | | | is likely more chronic in nature. Signed by: Pravin Abreu, | | | Skip Sign Date/Time: 08/20/2019 4:23 PM | | + + + + + | Procedure Note | + + | Wiley, Rad Results In - 08/20/2019 4:27 PM PDT | | UPPER EXTREMITY VEIN MAPPING | | | | CLINICAL INFORMATION: | | [facility] creation | | | | COMPARISON: | | None | | | | PROCEDURE: | | Duplex evaluation of the arteries and veins of the upper extremities. | | | | FINDINGS: | | Diameter/depth in mm: | | | | Right cephalic vein: | | Insertion: 3.0/10.0. | | Upper humerus: 2.8/11.0. | | Mid humerus: 3.3/4.9. | | Elbow: 4.6/3.2. | | Upper forearm: 2.6/3.1. | | Mid forearm: 2.5/2.7. | | Wrist: 1.7/2.6. | | | | Right basilic vein: | | Upper humerus: 5.2/12.0. | | Mid humerus: 4.1/14.0. | | Elbow: 4.6/4.3. | | Upper forearm: 2.6/3.7. | | Mid forearm: 3.1/1.3. | | Wrist: 1.5/1.8. | | | | Right brachial vein: | | Upper humerus: 2.3. | | Mid humerus: 3.3. | | Elbow: 2.4. | | | | Right axillary vein: 2.8. | | Right brachial artery distal: 5.9. | | Right radial artery wrist: 3.0. | | Right ulnar artery wrist: 2.3. | | | | Near occlusive thrombus in the mid right cephalic vein. | | | | Left cephalic vein: | | Insertion: 3.2/10.8. | | Upper humerus: 3.4/8.0. | | Mid humerus: 3.5/2.0. | | Elbow: 1.2/3.3. | | Upper forearm to wrist: Too small. | | | | Left basilic vein: | | Upper humerus: 9.1/17.7. | | Mid humerus: 6.5/16.2. | | Elbow: 4.8/5.1. | | Upper forearm: 2.5/1.0. | | Mid forearm: 2.5/1.4. | | Wrist: 2.3/1.6 | | | | Left basilic vein: | | Upper humerus: 3.7. | | Mid humerus: 3.2. | | Elbow: 4.9. | | | | Left axillary vein: 6.4. | | Left brachial artery distal: 6.3. | | Left radial artery wrist: 2.2. | | Left ulnar artery wrist: 2.7. 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 | | | | IMPRESSION: | | Bilateral upper extremity dialysis mapping. Measurements above. | | Near occlusive thrombus within the mid right cephalic vein. | | Nonocclusive thrombus within the left subclavian vein proximally that | | is likely more chronic in nature. | | | | | | | | Signed by: Pravin Abreu Chet | | Sign Date/Time: 08/20/2019 4:23 PM | + + + +---------+ + + | Performing | Address | City/State/Zipcode | Phone Number | | Organization | | | | + +---------+ + + | [facility] | | | | + +---------+ + + documented in this encounter Visit Diagnoses + + | Diagnosis | + + | ESRD (end stage renal disease) (HCC) - Primary End stage renal disease | + + documented in this encounter"
--- OUTSIDE RECORDS SUMMARY | ~2019-11-04 | XMS | Encounter Summary ---
Demographics + + + | Address | [address] | | | [place] [address] | + + + | Home Phone | | + + + | Preferred Language | Unknown | + + + | Marital Status | | + + + | Jew Affiliation | 1077 | + + + | Race | Unknown | + + + | Ethnic Group | Unknown | + + + Author + + + | Author | [facility] | | | and [place] | + + + | Organization | [facility] | | [...] Team Providers + +------+ + | Care Home Office Representative Name | Role | Phone | + +------+ + | Rahul Silva MD | PCP | | + +------+ + Encounter Details +--------+ + + + + | Date | Type | Department | Care Team | Description | +--------+ + + + + | 11/12/ | Orders Only | [facility] | Olman Toussaint MD | | | 2016 | | [address] | [address] | | | | | [place], [place] | [place], [place] | | | | | [address] | [address] | | | | | [phone] | [phone] | | | | | | | [...] | | | | | | [facility] | | | | | | [address] | | | | | | | | +--------+---------+ + + + documented as of this encounter Procedures + +--------+ + + + | Procedure Name | Priori | Date/Time | Associated Diagnosis | Comments | | | ty | | | | + +--------+ + + + | CK TOTAL | Routin | 11/12/2016 | | Results for this | | | e | 4:34 AM | | procedure are in the | | | | PST | | results section. | + +--------+ + + + documented in this encounter Results CK Total (11/12/2016 4:34 AM PST) + +-------+ + + + | Component | Value | Ref Range | Performed | Pathologist | | | | | At | Signature | + +-------+ + + + | CK, Total | 66 | 55 - 400 U/L | EXTERNAL [...]
--- OUTSIDE RECORDS SUMMARY | ~2019-11-04 | XMS | Encounter Summary ---
Demographics + + + | Address | [address] | | | [place] [address] | + + + | Home Phone | | + + + | Preferred Language | Unknown | + + + | Marital Status | | + + + | Jew Affiliation | 1077 | + + + | Race | Unknown | + + + | Ethnic Group | Unknown | + + + Author + + + | Author | [facility] | | | and [place] | + + + | Organization | [facility] | | | [...] Team Providers + +------+ + | Care Writer Name | Role | Phone | + [...] | | | | | | | ([facility]) | | | | | [...] + + | 09/10/ | Surgery | [facility] | Brian Orosco MD | [address] | | 2019 | [facility] | [address] | (Right BBF) | | | | OPERATING ROOM [address] | [place], [place] | | | | | [address] | [address] | | | | | [place], [place] | [phone] | | | | | [address] | | | | | | [phone] | | | +--------+---------+ + + + [...] shunt, please contact your ph ysician at [phone]. Discharge instructions for Diagnostic Imaging sedation patients [...] in a reclining position for the ri nm home, or have an adult in the [...] Anexsia, Lorcet, Lorcet HD, Lorcet Plus, Lortab, Piedmont, Verdrocet, Vicodin, Vi codin ES, Vicodin HP, [...] information carefully each time. Talk to your paper cap machine operator regarding the use of this medicine in children. Special care may be needed. What side effects may I notice from receiving this medicine? Side effects that you should report to your doctor or health livestock caretaker as soon as p ossible: allergic reactions [...] attention (report to your doctor or health livestock caretaker if they continue or are bothersome): constipation [...] to an official disposal site. Contact the [facility] at [phone] or your [facility] to find a site. If you [...] this medicine? Tell your doctor or health livestock caretaker if your pain does not go away, [...] cuts, scrapes, or blows. Date Last Reviewed: 12/01/201619999527-6145 [employer]. [address] [place] [address], [place] [id number]. All righ ts reserved. This information is [...] | | | | | | | ([facility]), Secondary | | | | | | | hyperparathyroidism | | | | | | | ([facility]) | | | | | | + [...] | | | | TABS | mouth 2 times daily. | | | | | + + + +---------+ + + | ondansetron | | | 0 | 06/18/20 | | | (ZOFRVALENTINE ODT) 8 mg | | | | [...] tablet | | | | 19 | | + + + +---------+ + + | torsemide | Take 40 mg by mouth | | 1 | 02/18/20 | | | (DEMADEX) 20 mg | Daily. | | | 19 | | | tablet | | | [...] and bl ood clots prevention. Prescription for Piedmont given and side effects were explained. Patient states that he also takes oxycodone at home; patient and his family were educated about taki ng oxycodone or Piedmont only and not both. OTC Tylenol intake [...] 2019 | Visit | | [address] [facility] | | | | | | [address] [place], [place] | | | | | | [address] | | | | | | | [...] | | | | than 15 ml/min ([facility]) | | + +--------+ + + + [...] Testing | 65 - 99 mg/dL | [facility] | | | POC | performed at [facility];[address] | | LABORATORY | | | | [address];[place], [place] | | | | | | [address] | | | | + + + + + + + + | Specimen | + + | | + + + + + + + | Performing | Address | City/State/Zipcode | Phone Number | | Organization | | | | + + + + + | [facility] | [address] | [place] [address] | [phone] | + + + + + POC [...] | | | POC | performed at [facility];[address] | | LABORATORY | | | | [address];[place] | | | | | | [address] | | | | + + + + + + + + | Specimen | + + | | + + + + + + + | Performing | Address | City/State/Zipcode | Phone Number | | Organization | | | | + + + + + | [facility] | [address] | [place] [address] | [phone] | + + + + + documented in this encounter Visit Diagnoses + + | Diagnosis | + + | CKD (chronic kidney disease) stage 5, GFR less than 15 ml/min ([facility]) Chronic kidney | | disease, Stage V | + + documented in this encounter Admitting Diagnoses + + | Diagnosis | + + | CKD (chronic kidney disease) stage 5, GFR less than 15 ml/min ([facility]) Chronic kidney | | disease, Stage V | + + documented in this encounter Administered Medications + +--------+ +---------+------+------+ | Medication Order | MAR | Action | Dose | Rate | Site | | | Action | Date | | | | + +--------+ +---------+------+------+ | albuterol 1.25 mg/3 mL | Given | //20 | 1.25 mg | | | | [...] One week or | | | longer, [id number] use of | | | at least [...]
--- OUTSIDE RECORDS SUMMARY | ~2019-11-04 | XMS | Encounter Summary ---
Demographics + + + | Address | [address] | | | [place] [address] | + + + | Home Phone | | + + + | Preferred Language | Unknown | + + + | Marital Status | | + + + | Anabaptism Affiliation | 1077 | + + + | Race | Unknown | + + + | Ethnic Group | Unknown | + + + Author + + + | Author | [facility] | | | and [place] | + + + | Organization | [facility] | | | [...] Team Providers + +------+ + | Care Sales Representative Graphic Art Name | Role | Phone | + [...] [address] | | | | | [place], [place] | [place], [place] | | | | | [address] | [address] | | | | | [phone] | [phone] | | | | | | | [...] 2020 | Visit | | [address] [facility] | | | | | | [address] [facility] | | | | | | [address] | | | | | | | [...]
--- OUTSIDE RECORDS SUMMARY | ~2019-11-04 | XMS | Encounter Summary ---
Demographics + + + | Address | [address] | | | [place] [address] | + + + | Home Phone [...] Providers + +------+ + | Care Hand Painter Name | Role | Phone | + +------+ + | Rahul Silva MD | PCP | | + +------+ + Encounter Details +--------+ + + + + | Date | Type | Department | Care Team | Description | +--------+ + + + + | 09/17/ | Orders Only | [facility] | Collin Mirza, | | | 2015 | | NEPHROLOGY [place] | TOWNSHIP CLERK [address] | | | | | [address] [place] | [address] | | | | | [address] [place], [place] | [facility] | | | | | [address] | [address] | | | | | [phone] | [phone] | | | | | | | [...] | Visit | | [address] [facility] | | | | | | [address] [facility] | | | | | | [address] | | | | | | | [...] | | | LAB | | | [place] | | | | | + + [...]
--- OUTSIDE RECORDS SUMMARY | ~2019-11-04 | XMS | Encounter Summary ---
Demographics + + + | Address | [address] | | | [place] [address] | + + + | Home Phone | | + + + | Preferred Language | Unknown | + + + | Marital Status | | + + + | Mu-Ism Affiliation | 1077 | + + + | Race | Unknown | + + + | Ethnic Group | Unknown | + + + Author + + + | Author | [facility] | | | and [place] | + + + | Organization | [facility] | | | [...] Providers + +------+ + | Care Systems Programmer Analyst Name | Role | Phone | + +------+ + | Rahul Silva MD | PCP | | + +------+ + Encounter Details +--------+ + + + + | Date | Type | Department | Care Team | Description | +--------+ + + + + | 08/13/ | Orders Only | [facility] | Conversion | | | 2016 | | NEPHROLOGY [place] | Transaction, | | | | | [address] [place] | Provider Unknown | | | | | [address] [place] | | | | | | [address] | (Fax) | | | | | [phone] | | | +--------+ + + + [...] Visit | | [address] [facility] | | | | | | [address] [facility] | | | | | | [address] | | | | | | | [...]
--- OUTSIDE RECORDS SUMMARY | ~2019-11-04 | XMS | Encounter Summary ---
Demographics + + + | Address | [address] | | | [place] [address] | + + + | Home Phone | | + + + | Preferred Language | Unknown | + + + | Marital Status | | + + + | Religion Affiliation | 1077 | + + + [...] Team Providers + +------+ + | Care Repairer Cylinder Heads Name | Role | Phone | + [...] + + | 09/24/ | Telephone | [facility] | Farrukh Acuna MD | Lab Results | | 2019 | | NEPHROLOGY [place] | [address] [place] | | | | | [address] [place] | [address] [place], [place] | | | | | [address] [place], [place] | [address] | | | | | [address] | | | | | | [phone] | | | +--------+ + + + [...] 2020 | Visit | | [address] [facility] | | | | | | [address] [place] | | | | | | [address] | | | | | | | | +--------+---------+ + + + documented as of this encounter Visit Diagnoses Not on filedocumented in this encounter"
--- OUTSIDE RECORDS SUMMARY | ~2019-11-04 | XMS | Clinical Summary ---
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 | | | | | e | | immediate release | | | | | | | | tablet | | | | | | | + + + +---------+------+------+-------+ | atorvaSTATin | Take 80 mg by mouth | | 0 | | | Activ | | (LIPITOR) 80 MG | nightly. | | | | | e | | tablet | | | | | | | + + + +---------+------+------+-------+ | clopidogrel | Take 75 mg by mouth | | 0 | | | Activ | | (PLAVIX) 75 mg | Daily. | | | | | e | | tablet | | | | | | | + + + +---------+------+------+-------+ | insulin aspart | Inject under the | | 0 | | | Activ | | (NOVOLOG [...] | | + + + +---------+------+------+-------+ | | Take 3 mLs by | | 0 | | | Activ | | albuterol-ipratropiu | nebulization Before | | | | | e | | m (MICAHB) 2.5-0.5 | breakfast, dinner | | | | | | | mg/3 mL SOLN | and bedtime. | | | | | | + + + +---------+------+------+-------+ | cyanocobalamin | Take 1,000 mcg by | | 0 | | | Activ | | (VITAMIN B-12) 1000 | mouth every 14 days. | | | | | e | | MCG tablet | | | | | | | + + + +---------+------+------+-------+ | atenolol | Take 25 mg by mouth | | 0 | | | Activ | | (TENORMIN) 50 mg | Daily. | | | | | e | | tablet | | | | | | | + + + +---------+------+------+-------+ | aspirin 81 mg | Take 81 mg by mouth | | 0 | | | Activ | | chewable tablet | Daily. | | | | | e | + + + +---------+------+------+-------+ | ipratropium | Take 0.5 mg by | | 0 | | | Activ | | (ATROVENT) 500 | nebulization 4 | | | | | e | | mcg/2.5 mL nebulizer | (four) times daily. | | | | | | | solution | | | | | | | + + + +---------+------+------+-------+ | ferrous sulfate | Take 65 mg of iron | | 0 | | | Activ | | 324 (65 Fe) MG EC | by mouth 4 times | | | | | e | | tablet | daily with meals. | | | | | | + + + +---------+------+------+-------+ | doxepin (SINEQUAN) | 50 mg. | | 0 | 07/0 | | Activ | | 10 mg capsule | | | | 1/20 | | e | | | | | | 19 | | | + + + +---------+------+------+-------+ | ONE TOUCH ULTRA | USE TO TEST BLOOD | | 1 | 07/0 | | Activ | | TEST strip | SUGAR five times a | | | 2/20 | | e | | | day | | | 19 | | | + + + +---------+------+------+-------+ | LANJuan PabloUS SOLOSTAR | Inject 25 Units | | 0 | 06/1 | | Activ | | 100 UNIT/ML | under the skin | | | 9/20 | | e | | injection (pen) | nightly. | | | 19 | | | + + + +---------+------+------+-------+ | LINZESS 145 MCG | | | 1 | 06/2 | | Activ | | capsule | | | | 0/20 | | e | | | | | | 19 | | | + + + +---------+------+------+-------+ | lisinopril | | | 1 | 07/0 | | Activ | | (PRINIVIL, ZESTRIL) | | | | 5/20 | | e | | 10 mg tablet | | | | 19 | | | + + + +---------+------+------+-------+ | sodium bicarbonate | | | 0 | 07/0 | | Activ | | 650 mg tablet | | | | 1/20 | | e | | | | | | 19 | | | + + + +---------+------+------+-------+ | torsemide | Take 40 mg by mouth | | 1 | 03/2 | | Activ | | (DEMADEX) 20 mg | Daily. | | | 0/20 | | e | | tablet | | | | 19 | | | + + + +---------+------+------+-------+ | VENTOLIN HFA 108 | inhale 2 puffs by | | 0 | 04/0 | | Activ | | (90 Base) MCG/ACT | mouth every 4 hours | | | 3/20 | | e | | inhaler | if needed for | | | 19 | | | | | shortness of breath | | | | | | + + + +---------+------+------+-------+ | ondansetron | | | 0 | 07/1 | | Activ | | (ZOFRAN ODT) 8 mg | | | | 9/20 | | e | | disintegrating | | | | 19 | | | | tablet | | | | | | | + + + +---------+------+------+-------+ | calcitriol | Take 1 capsule by | 90 | 3 | 08/01 | | Activ | | (ROCALTROL) 0.25 mcg | mouth Daily. | capsule | | 07/20 | | e | | capsuleIndications: | | | | 19 | | | | Stage 5 chronic | | | | | | | | kidney disease not | | | | | | | | on chronic dialysis | | | | | | | | ([facility]), Secondary | | | | | | | | hyperparathyroidism | | | | | | | | ([facility]) | | | | | | | + + + +---------+------+------+-------+ | CHOLECALCIFEROL PO | Take 1 tablet by | | 0 | | | Activ | | | mouth Daily. | | | | | e | + + + +---------+------+------+-------+ | aluminum & | Take 15 mLs by mouth | | 0 | | | Activ | | magnesium | every 4 hours as | | | | | e | | hydroxide-simethicon | needed for | | | | | | | e (MAALOX PLUS | Indigestion. | | | | | | | DOUBLE STRENGTH) | | | | | | | | 400-400-40 mg/5 mL | | | | | | | | suspension | | | | | | | + + + +---------+------+------+-------+ | docusate-senna | Take 2 tablets by | | 0 | | | Activ | | (SENOKOT-S) 50-8.6 | mouth Daily. | | | | | e | | mg per tablet | | | | | | | + + + +---------+------+------+-------+ | Magnesium 65 MG | Take 1 tablet by | | 0 | | | Activ | | TABS | mouth 2 times daily. | | | | | e | + + + +---------+------+------+-------+ | albuterol 2.5 mg/3 | Take 2.5 mg by | | 0 | | | Activ | | mL nebulizer | nebulization every 6 | | | | | e | | solution | hours as needed for | | | | | | | | Wheezing. | | | | | | + + + +---------+------+------+-------+ | oxygen | Inhale 4 L into the | | 0 | | | Activ | | | lungs as needed (If | | | | | e | | | napping or having | | | | | | | | increased pain | | | | | | | | during the day). | | | | | | + + + +---------+------+------+-------+ | polyethylene | Take 17 g by mouth | | 0 | | | Activ | | glycol (MIRALAX) | Daily. | | | | | e | | packet | | | | | | | + + + +---------+------+------+-------+ | amLODIPine | Take 1 tablet by | 90 | 3 | 11/0 | | Activ | | (NORVASC) 5 mg | mouth Daily. | tablet | | 4/20 | | e | | tablet | | | | 19 | | | + + + +---------+------+------+-------+ | darbepoetin amarjit | Inject 0.3 mLs under | 0.3 mL | 11 | 11/0 | | Activ | | (ARANESP, ALBUMIN | the skin Every 30 | | | 5/20 | | e | | FREE,) 60 mcg/0.3 mL | days. | | | 19 | | | | | | | | | | | | injectionIndications | | | | | | | | : Essential | | | | | | | | hypertension, Iron | | | | | | | | deficiency, Anemia | | | | | | | | of chronic kidney | | | | | | | | failure, stage 5 | | | | | | | | (FORM[facility]) | | | | | | | + + + +---------+------+------+-------+ Active Problems + + + | Problem | Noted Date | + + + | CKD (chronic kidney disease) stage 5, GFR less than 15 ml/min | 08/26/2019 | + + + + + | Overview: Added automatically from request for surgery | | [id number] | + + + + + | Iron deficiency | 07/26/2019 | + + + | Secondary hyperparathyroidism | 01/17/2017 | + + + | Intractable pain | 08/04/2016 | + + + | Type 2 diabetes mellitus with diabetic nephropathy, with | 08/04/2016 | | long-term current use of insulin | | + + + | Phantom limb pain | 08/04/2016 | + + + | Intertrochanteric fracture of left hip, closed, initial encounter | 08/03/2016 | + + + | Laceration of left ear, initial encounter | 08/03/2016 | + + + | Status post fall | 08/03/2016 | + + + | Acute hyperkalemia | 08/03/2016 | + + + | Hypomagnesemia | 02/03/2015 | + + + | Adiposity | 06/06/2014 | + + + | Anemia of chronic kidney failure, stage 5 | 06/06/2014 | + + + | Cataract of both eyes | 06/06/2014 | + + + | Diabetes mellitus | 06/06/2014 | + + + | Edema of lower extremity | 06/06/2014 | + + + | History of stroke | 06/06/2014 | + + + | Essential hypertension | 06/06/2014 | + + + + + | Overview: Last Assessment & Plan: Controlled on current | | [id number] yr old male with COPD, current heavy smoker, | | PAOLO/COPD on Cpap machine, PVD s/p rt [place] amputation, DM, HLD, | | CVA, obesity, CKDNo complaints of chest pain,SOB at baselineWheel | | chair boundContinue ASA, Statin, Atenolol, Lisinopril, | | AmlodipineEcho 03/2016- normal LV systolic functionCath- 05/2003- | | Mild CADDiscussed importance of smoking cessation, diet, | | activity, lifestyle changes, weight loss, Na restriction, | | medication complianceF/u in 6 months. | |Discussed importance of smoking cessation, diet, activity, lifestyle changes, weight loss, Na restriction, medication compliance | |F/u in 6 months. | + + + + + | Hyperuricemia | 06/06/2014 | + + + | Persistent proteinuria | 06/06/2014 | + + + + + | Overview: Overview: | | Mild. | + + + + + | Status post amputation of lower extremity | 06/06/2014 | + + + + + | Overview: Overview: | | Left. | + + + + + | Tobacco dependence syndrome | 06/06/2014 | + + + | Vitamin D deficiency | 06/06/2014 | + + + | PAOLO (obstructive sleep apnea) | 02/16/2014 | + + + | COPD (chronic obstructive pulmonary disease) | 02/16/2014 | + + + Resolved Problems + + + + | Problem | Noted | Resolved | | | Date | Date | + + + + | PAOLO on CPAP | 08/04/20 | | | | 16 | 9 | + + + + + + | Overview: With additional 4 L of nasal cannula oxygen | + + + + + + | Stage 5 chronic kidney disease not on chronic dialysis | 08/03/20 | | | | 16 | 9 | + + + + Encounters +--------+ + + + + | Date | Type | Specialty | Care Team | Description | +--------+ + + + + | 10/20/ | Hospital | Radiology | Trisha Conner DNP | CKD (chronic kidney | | 2019 | Encounter | | | disease) stage 5, | | | | | | GFR less than 15 | | | | | | ml/min ([facility]) | +--------+ + + + + | 10/20/ | Office | Vascular Surgery | Trisha Conner DNP | CKD (chronic kidney | | 2019 | Visit | | | disease) stage 5, | | | | | | GFR less than 15 | | | | | | ml/min ([facility]) | | | | | | (Primary Dx); AVF | | | | | | (arteriovenous | | | | | | fistula) ([facility]) | +--------+ + + + + | 10/20/ | Telephone | Nephrology | Alfred, | Other (Steve /U) | | 2018 | | | Charlie Abdi | | | | | | Package Dye Stand Loader | | +--------+ + + + + | 10/19/ | Documentati | Nephrology | Alfred | Results (09/22/19) | | 2018 | on | | Charlie Abdi | | | | | | Package Dye Stand Loader | | +--------+ + + + + | 10/06/ | Telephone | Nephrology | Farrukh Acuna MD | Other | | 2018 | | | | | +--------+ + + + + | 10/05/ | Orders Only | Nephrology | Farrukh Acuna MD | Essential | | 2018 | | | | hypertension | | | | | | (Primary Dx); Iron | | | | | | deficiency; Anemia | | | | | | of chronic kidney | | | | | | failure, stage 5 | | | | | | ([facility]) | +--------+ + + + + | 10/05/ | Orders Only | Nephrology | Farrukh Acuna MD | Essential | | 2019 | | | | hypertension | | | | | | (Primary Dx); Iron | | | | | | deficiency; | | | | | | Secondary | | | | | | hyperparathyroidism | | | | | | ([facility]); CKD (chronic | | | | | | kidney disease) | | | | | | stage 5, GFR less | | | | | | than 15 ml/min ([facility]) | +--------+ + + + + | 10/04/ | Office | Nephrology | Farrukh Acuna MD | CKD (chronic kidney | | 2019 | Visit | | | disease) stage 5, | | | | | | GFR less than 15 | | | | | | ml/min ([facility]) | | | | | | (Primary Dx); Anemia | | | | | | of chronic kidney | | | | | | failure, stage 5 | | | | | | ([facility]); Essential | | | | | | hypertension; Iron | | | | | | deficiency; | | | | | | Secondary | | | | | | hyperparathyroidism | | | | | | ([facility]); 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, with | | | | | | long-term current | | | | | | use of insulin | | | | | | ([facility]); Edema of | | | | | | lower extremity; | | | | | | Hypomagnesemia; | | | | | | Vitamin D deficiency | +--------+ + + + + | 10/04/ | Documentati | Nephrology | Alfred, | Results (09/30/19) | | 2019 | on | | Charlie Abdi | | | | | | Package Dye Stand Loader | | +--------+ + + + + | 10/01/ | Telephone | Nephrology | Farrukh Acuna MD | | | 2019 | | | | | +--------+ + + + + | 09/28/ | Telephone | Vascular Surgery | Sandy Gomez | Appointment | | 2018 | | | RN | | +--------+ + + + + | 09/24/ | Telephone | Nephrology | Farrukh Acuna MD | Lab Results | | 2018 | | | | | +--------+ + + + + | 09/23/ | Telephone | Vascular Surgery | Brian Orosco MD | Advice Only | | 2018 | | | | | +--------+ + + + + | 09/17/ | Documentati | Nephrology | Oly Alvarenga | Labs Only (interpath | | 2018 | on | | [facility] | 08/24/19) | | | | | Package Dye Stand Loader | | +--------+ + + + + | 09/13/ | Telephone | Vascular Surgery | Terri Aguilar, | Follow-up | | 2018 | | | Hospital Supervisor | | +--------+ + + + + | 09/10/ | Anesthesia | | Venkata Carroll | | | 2019 | Event | | CORNELL Grewal | | +--------+ + + + + | 09/10/ | Ancillary | | Brian Orosco MD | Canceled (OTHER) | | 2018 | Procedure | | | | +--------+ + + + + | 09/10/ | Surgery | | Brian Orosco MD | INSERTION AV FISTULA | | 2018 | | | | (Right BBF) | +--------+ + + + + | 09/10/ | Hospital | | Brian Orosco MD | CKD (chronic kidney | | 2018 | Encounter | | | disease) stage 5, | | | | | | GFR less than 15 | | | | | | ml/min ([facility]) | +--------+ + + + + | 09/07/ | Preadmit | Pre-Admission | Brian Orosco MD | | | 2019 | Visit | Testing | | | +--------+ + + + + | 09/07/ | Telephone | Vascular Surgery | Sandy Gomez, | Surgery Appointment | | 2018 | | | RN | | +--------+ + + + + | 09/03/ | Telephone | Nephrology | Alfred | Lab Results | | 2019 | | | Charlie Abdi | | | | | | Package Dye Stand Loader | | +--------+ + + + + | 09/01/ | Telephone | Vascular Surgery | Brian Orosco MD | Advice Only | | 2019 | | | | (surgery) | +--------+ + + + + | 09/01/ | Telephone | Nephrology | Farrukh Acuna MD | Other | | 2018 | | | | | +--------+ + + + + | 08/26/ | Office | Vascular Surgery | Trisha Conner DNP | CKD (chronic kidney | | 2018 | Visit | | Brian Orosco MD | disease) stage 5, | | | | | | GFR less than 15 | | | | | | ml/min ([facility]) | | | | | | (Primary Dx) | +--------+ + + + + | 08/25/ | Telephone | Vascular Surgery | Brian Orosco MD | New Patient (08/26 | | 2018 | | | | appointment) | +--------+ + + + + | 08/20/ | Hospital | Radiology | Trisha Conner DNP | ESRD (end stage | | 2018 | Encounter | | | renal disease) ([facility]) | +--------+ + + + + | 08/18/ | Refill | Nephrology | Sandy Capellan | Medication Refill | | 2018 | | | BAN Valadez | | +--------+ + + + + | 08/13/ | Telephone | Nephrology | Farrukh Acuna MD | Other (lab result) | | 2018 | | | | | +--------+ + + + + | 08/10/ | Telephone | Vascular Surgery | Brian Orosco MD | Other (orders ) | | 2018 | | | | | +--------+ + + + + from Last 3 Months Immunizations + + + + | Name | Administration Dates | Next Due | + + + + | TDAP, (ADOL/ADULT) | 08/03/2016 | | + + + + Family History + + +------+ + | Medical History | Relation | Name | Comments | + + +------+ + | Hypertension | Brother | | | + + +------+ + | Cancer | Father | | | + + +------+ + | Heart disease | Father | | | + + +------+ + | Hypertension | Mother | | | + + +------+ + | Malig hypertherm | Neg Hx | | | + + +------+ + + +------+ + + | Relation | Name | Status | Comments | + +------+ + + | Brother | | | | + +------+ + + | Father | | | | + +------+ + + | Mother | | | | + +------+ + + Social History + +-------+ +--------+ [...] recent travel history available. | + + Last Filed Vital Signs + + + + + | Vital Sign | Reading | Time Taken | Comments | + + + + + | Blood Pressure | 129/51 | 10/20/2019 2:24 PM | | | | | PST | | + + + + + | Pulse | 73 | 10/20/2019 2:24 PM | | | | | PST | | + + + + + | Temperature | 36.3 C (97.4 F) | 09/10/2019 2:07 PM | | | | | PDT | | + + + + + | Respiratory Rate | 14 | 09/10/2019 2:30 PM | | | | | PDT | | + + + + + | Oxygen Saturation | 90% | 10/20/2019 2:24 PM | | | | | PST | | + + + + + | Inhaled Oxygen | - | - | | | Concentration | | | | + + + + + | Weight | 78 kg (172 lb) | 10/04/2019 2:18 PM | | | | | PST | | + + + + + | Height | 172.7 cm (5' 8") | 10/04/2019 2:18 PM | | | | | PST | | + + + + + | Body Mass Index | 26.15 | 10/04/2019 2:18 PM | | | | | PST | | + + + + + Plan of Treatment +--------+---------+ + + + | Date | Type | Specialty | Care Team | Description | +--------+---------+ + + + | 12/06/ | Office | Nephrology | Farrukh Acuna MD | | | 2020 | Visit | | [address] [facility] | | | | | | [address] [place] | | | | | | [id number] | | | | | | | | +--------+---------+ + + + + + + + + | Health Maintenance | Due Date | Last Done | Comments | + + + + + | Urine Drug Screening | | | | | | 6 | | | + + + + + | Diabetic Eye Exam | | | | | | 8 | | | + + + + + | Diabetic Foot Exam | | | | | | 8 | | | + + + + + | Vaccine: | | | | | Pneumococcal 65+ (1 | 5 | | | | of 2 - PCV13) | | | | + + + + + | Vaccine: Zoster (2 | | 09/07/2014 | | | of 3) | 4 | | | + + + + + | Hemoglobin A1c | | 07/14/2018, 10/27/2017 | | | Screening | 8 | | | + + + + + | Adult Annual | | | | | Wellness Visit | 9 | | | + + + + + | Vaccine: | | 08/03/2016, 08/29/2008 | | | Dtap/Tdap/Td (3 - | 6 | | | | Td) | | | | + + + + + | Vaccine: Influenza | Completed | 08/04/2019, 08/04/2019, | | | | | 07/30/2018, Additional history | | | | | exists | | + + + + + Procedures + +--------+ + + + | Procedure Name | Priori | Date/Time | Associated Diagnosis | Comments | | | ty | | | | + +--------+ + + + | VAS HEMODIALYSIS | Routin | 10/20/2019 | CKD (chronic | Results for this | | GRAFT FISTULA | e | 3:55 PM | kidney disease) | procedure are in the | | | | PST | stage 5, GFR less | results section. | | | | | than 15 ml/min (HCC) | | + +--------+ + + + | LABS - EXTERNAL SCAN | | 09/30/2019 | | Results for this | | | | 12:00 AM | | procedure are in the | | | | PDT | | results section. | + +--------+ + + + | RENAL FUNCTION PANEL | Routin | 09/30/2019 | | Results for this | | | e | | | procedure are in the | | | | | | results section. | + +--------+ + + + | MAGNESIUM | Routin | 09/30/2019 | | Results for this | | | e | | | procedure are in the | | | | | | results section. | + +--------+ + + + | IRON AND IRON | Routin | 09/30/2019 | | Results for this | | BINDING CAPACITY | e | | | procedure are in the | | | | | | results section. | + +--------+ + + + | CBC WITH | Routin | 09/30/2019 | | Results for this | | DIFFERENTIAL | e | | | procedure are in the | | | | | | results section. | + +--------+ + + + | EXTERNAL LAB: PTH, | Routin | 09/30/2019 | | Results for this | | INTACT | e | | | procedure are in the | | | | | | results section. | + +--------+ + + + | BASIC METABOLIC | Routin | 09/22/2019 | | Results for this | | [...] for this | | PANEL | | 1:58 PM | | procedure are in the | | | | PDT | | results section. | + +--------+ + + + | CBC WITH | Timed | 09/07/2019 | | Results for this | | DIFFERENTIAL | | 1:58 PM | | procedure are in the | | | | PDT | | results section. | + +--------+ + + + | ECG 12 LEAD | Timed | 09/07/2019 | | Results for this | | | | 1:48 PM | | procedure are in the | | | | PDT | | results section. | + +--------+ + + + | BASIC METABOLIC | Routin | 08/24/2019 | | Results for this | | PANEL | e | | | procedure are in the | | | | | | results section. | + +--------+ + + + | VAS ARM BILATERAL | Routin | 08/20/2019 | ESRD (end stage | Results for this | | MAPPING FOR DIALYSIS | e | 1:58 PM | renal disease) (HCC) | procedure are in the | | | | PDT | | results section. | + +--------+ + + + | LABS - EXTERNAL SCAN | | 08/09/2019 | | Results for this | | | | 12:00 AM | | procedure are in the | | | | PDT | | results section. | + +--------+ + + + | BASIC METABOLIC | Routin | 08/09/2019 | | Results for this | | PANEL | e | | | procedure are in the | | | | | | results section. | + +--------+ + + + from Last 3 Months Results VAS Hemodialysis Graft Fistula (10/20/2019 3:55 PM PST) + + | Specimen | + + | | + + + + + | Impressions | Performed At | + + + | 1. Patent arteriovenous fistula as described with limited | [facility] | | evaluation. Signed by: Idris Wilson Shawn Sign | | | Date/Time: 10/21/2019 8:17 AM | | + + + + + + | Narrative | Performed At | + + + | IMAGING DIALYSIS GRAFT CLINICAL INFORMATION: AVF | [facility] | | COMPARISON: None PROCEDURE: Real-time grayscale, color flow and | | | spectral Doppler sonography of the Patient's right arteriovenous | | | fistula was performed. FINDINGS: Distal inflow: 298/134, volume | | | 1458 mL/Min, diameter 6 mm, depth 15 mm. Anastomosis: 145/85, | | | diameter 3.3 mm. Proximal outflow: 99/56, volume 1992 mL/Min, | | | diameter 11 mm, depth 5 mm. Small subcutaneous hematoma anterior | | | to the anastomosis measuring 3.1 x 0.7 cm. | | + + + + + | Procedure Note | + + | Wiley, Rad Results In - 10/21/2019 8:21 AM PST | | IMAGING DIALYSIS GRAFT | | | | CLINICAL INFORMATION: | | AVF | | | | COMPARISON: | | None | | | | PROCEDURE: | | Real-time grayscale, color flow and spectral Doppler sonography of the | | Patient's right arteriovenous fistula was performed. | | | | FINDINGS: | | Distal inflow: 298/134, volume 1458 mL/Min, diameter 6 mm, depth 15 mm. | | Anastomosis: 145/85, diameter 3.3 mm. | | Proximal outflow: 99/56, volume 1992 mL/Min, diameter 11 mm, depth 5 mm. | | | | Small subcutaneous hematoma anterior to the anastomosis measuring 3.1 x | | 0.7 cm. | | | | IMPRESSION: | | 1. Patent arteriovenous fistula as described with limited evaluation. | | | | | | | | | | Signed by: Idris Wilson Shawn | | Sign Date/Time: 10/21/2019 8:17 AM | + + + +---------+ + + | Performing | Address | City/State/Zipcode | Phone Number | | Organization | | | | + +---------+ + + | [facility] | | | | + +---------+ + + External Lab: PTH, Intact (09/30/2019) + + + + + + | Component | Value | Ref Range | Performed | Pathologist | | | | | At | Signature | + + + + + + | PTH Intact, | 154.3 (A) | 15 - 65 | | | | External | | | | | + + + + + + + + | Specimen | + + | | + + LABS - EXTERNAL SCAN (09/30/2019 12:00 AM PDT)Only the most recent of 2 results within the time period is included. + + + | Narrative | Performed At | + + + | Ordered by an | | | unspecified provider. | | + + + Iron and Iron Binding Capacity (09/30/2019) + +--------+ + + + | Component | Value | Ref Range | Performed | Pathologist | | | | | At | Signature | + +--------+ + + + | Iron | 37 | 37 - 160 ug/dL | | | + +--------+ + + + | Iron | 14 (A) | 20 - 55 % | | | | Saturation | | | | | + +--------+ + + + | TIBC | 257 | 245 - 400 ug/dL | | | + +--------+ + + + | TRANSFERRIN | 183.8 | 180.0 - 329.0 | | | | | | mg/dL | | | + +--------+ + + + | Ferritin, | 230.9 | 30 - 400 | | | | External | | | | | + +--------+ + + + + + | Specimen | + + | Blood | + + CBC with Differential (09/30/2019)Only the most recent of 2 results within the time period is included. + + + + + + | Component | Value | Ref Range | Performed | Pathologist | | | | | At | Signature | + + + + + + | WBC | 7.4 | 4.5 - 11.0 | | | + + + + + + | RBC | 2.93 (A) | 4.30 - 5.70 | | | | | | M/uL | | | + + + + + + | Hemoglobin | 8.2 (A) | 13.5 - 18.0 | | | + + + + + + | Hematocrit, | 25.0 (A) | 41.0 - 50.0 % | | | | POC | | | | | + + + + + + | MCV | 85.3 | 81.0 - 99.0 fL | | | + + + + + + | MCH | 28.0 | 27.0 - 33.0 pg | | | + + + + + + | MCHC | 33.0 | 30.0 - 36.0 | | | | | | g/dL | | | + + + + + + | Platelet | 230 | 140 - 440 | | | | Count | | | | | | Plasma | | | | | + + + + + + | RDW | 15.7 (A) | 10.5 - 15.0 | | | + + + + + + | Absolute | 6.0 (A) | 24 - 44 | | | | Lymphocytes | | | | | + + + + + + | Neutrophils | 76.6 | 39 - 80 | | | | , Absolute | | | | | + + + + + + | Absolute | 9.3 | 0 - 12 | | | | Monocytes | | | | | + + + + + + | Eosinophils | 7.1 (A) | 0 - 6 | | | | , Absolute | | | | | + + + + + + | Basophils, | 1.0 | 0 - 2 | | | | Absolute | | | | | + + + + + + + + | Specimen | + + | Blood | + + Magnesium (09/30/2019) + +-------+ + + + | Component | Value | Ref Range | Performed | Pathologist | | | | | At | Signature | + +-------+ + + + | MG | 2.5 | 1.7 - 2.5 | | | + +-------+ + + + + + | Specimen | + + | Blood | + + Renal Function Panel (09/30/2019) + + + + + + | [...] | 4.2 | 3.6 - 5.1 | | | | | | mmol/L | | | + + + + + + | Cl | 101 | 95 - 112 mmol/L | | | + + + + + + | CO2 | 23 | 19 - 31 mmol/L | | | + + + + + + | Anion Gap | 17 | 7 - 21 mmol/L | | | + + + + + + | Glucose | 111 | 70 - 1,400 | | | | | | mg/dL | | | + + + + + + | BUN | 54 (A) | 6 - 23 mg/dL | | | + + + + + + | Creatinine | 4.09 (A) | 0.70 - 1.18 | | | | | | mg/dL | | | + + + + + + | Estimated | 14.0 (A) | 60.0 - 140.0 | | | | GFR | | mL/min/1.73m2 | | | + + + + + + | BUN/Creatin | 13.2 | 6.0 - 258.6 | | | | ine Ratio | | | | | + + + + + + | Albumin | 3.5 | 3.5 - 5.0 g/dL | | | + + + + + + | Calcium | 7.6 (A) | 8.5 - 10.3 | | | + + + + + + | PHOSPHORUS | 4.9 | 2.5 - 5.0 | | | + + + + + + + + | Specimen | + + | Blood | + + Basic Metabolic Panel (09/22/2019)Only the most recent of 4 results within the time period is included. + + + + + + | Component | Value | Ref Range | Performed | Pathologist | | | | | At | Signature | + + + + + + | Na | 132 | 132 - 143 | | | | | | mmol/L | | | + + + + + + | K | 4.8 | 3.6 - 5.1 | | | | | | mmol/L | | | + + + + + + | Cl | 98 | 95 - 112 mmol/L | | | + + + + + + | CO2 | 21 | 19 - 31 mmol/L | | | + + + + + + | Anion Gap | 18 | 7 - 21 mmol/L | | | + + + + + + | Glucose | 116 (A) | 70 - 100 mg/dL | | | + + + + + + | BUN | 56 (A) | 6 - 23 mg/dL | | | + + + + + + | Creatinine | 4.61 (A) | 0.70 - 1.18 | | | | | | mg/dL | | | + + + + + + | Estimated | 12.0 (A) | 60.0 - 140.0 | | | | GFR | | mL/min/1.73m2 | | | + + + + + + | BUN/Creatin | 12.1 | 6.0 - 28.6 | | | | ine Ratio | | | | | + + + + + + + + | Specimen | + + | Blood | + + POC Glucose (09/10/2019 2:12 PM PDT)Only the most recent of 2 results within the time santiago od is included. + + + + + + | Component | Value | Ref Range | Performed | Pathologist | | | | | At | Signature | + + + + + + | Glucose, | 161 (H)Comment: Testing | 65 - 99 mg/dL | [facility] | | | POC | performed at [facility];[address] | | LABORATORY | | | | [facility];[place], [place] | | | | | | [address] | | | | + + + + + + + + | Specimen | + + | | + + + + + + + | Performing | Address | City/State/Zipcode | Phone Number | | Organization | | | | + + + + + | [facility] | [address] | [place] [address] | [phone] | + + + + + ECG 12 lead (09/07/2019 1:48 PM PDT) + + + + + [...] | | | + +---------+ + + VAS Arm Bilateral Mapping For Dialysis (08/20/2019 [...] Signed by: Pravin Abreu, | | | Sikp Sign Date/Time: 08/20/2019 4:23 PM | | + + + + + | Procedure Note | + + | Wiley, Rad Results In 08/20/2019 4:27 PM PDT | | UPPER [...] | | | + +---------+ + + from Last 3 Months Insurance + +--------+ +--------+ +---------+--------+ | Payer | Benefi | Subscriber | Effect | Phone | Address | Type | | | t Plan | ID | casey | | | | | | / | | Dates | | | | | | Group | | | | | | + +--------+ +--------+ +---------+--------+ | MEDICARE | MEDICA | [id number] | 07/01/20 | [phone] | | Medica | | | RE | | 05-Pre | 5 | | re | | | PART A | | sent | | | | | | AND B | | | | | | + +--------+ +--------+ +---------+--------+ | [employer] | MODA | [id number] | 07/04/20 | [phone] | | Medica | | MEDICAID HMO | HEALTH | | 19-Pre | 1 | | id | | | MDCD | | sent | | | | | | [place] | | | | | | + +--------+ +--------+ +---------+--------+ | [place] | MEDICA | [id number] | | [phone] | | Medica | | | ID | | 014-Pr | 2 | | id | | | [place] | | esent | | | | + +--------+ +--------+ +---------+--------+ + +--------+ +--------+ + + | Guarantor Name | Accoun | Relation to | Date | Phone | Billing Address | | | t Type | Patient | of | | | | | | | | | | + +--------+ +--------+ + + | Kavon Andujar | Person | Self | [birth year] | [address] | | [place] | al/Fam | | 1940 | [phone] | [place], [place] | | | chula | | | 1 (Home) | [address] | + +--------+ +--------+ + + | Kavon Andujar | Person | Self | [birth year] | [address] | | [place] | al/Fam | | 1940 | [phone] | [place], [place] | | | chula | | | 1 (Home) | [address] | + +--------+ +--------+ + + Advance Directives + + + + + | Type | Date Recorded | Patient | Explanation | | | | Engraver Picture | | + + + + + | Power of | | | | | Central Stores Attendant | | | | + + + + + | Advance | 09/01/2019 3:29 | | | | Directive | PM | | | + + + + + + + + + + | Code Status | Date | Date | Comments | | | Activated | Inactivated | | + + + + + | Full Code | 09/10/2019 | 09/10/2019 | | | | 2:36 PM | 6:34 PM | | + + + + + + + + +---+ | | | | | + + + +---+ | Full Code | 08/04/2016 | 08/05/2016 | | | | 2:45 AM | 3:29 PM | | + + + +---+
--- OUTSIDE RECORDS SUMMARY | ~2019-11-04 | XMS | Encounter Summary ---
Demographics + + + | Address | [address] | | | [place] [address] | + + + | Home Phone | | + + + | Preferred Language | Unknown | + + + | Marital Status | Single | + + + | Rastafari Affiliation | PRO | + + + | Race | White | + + + | Ethnic Group | Not or | + + + Author + + + | Author | [facility] | + + + | Organization | [facility] | + + + | Address | Unknown | + + + | Phone | Unavailable | + + + Support + + + + + | Name | Relationship | Address | Phone | + + + + + | Darci Zavala | [address] | [place] | | | | | [address] | | + + + + + Care Team Providers + +------+ + | Care Brick Picker Name | Role | Phone | + +------+ + PCP | Unavailable | + +------+ + Encounter Details +--------+ + + + + | Date | Type | Department | Care Team | Description | +--------+ + + + + | 08/05/ | Transcribed | All[facility] Clinic at | [place], Other | Transcribed | | 1995 | | [facility] [address] | | | | | | [address] | | | | | | Mailcode: [id number] | | | | | | [place] | | | | | | [place], | | | | | | [place] [address] | | | | | | [phone] | | | +--------+ + + + [...] as of this encounter Progress Notes Interface, Respiratory Services Manager In - 02/17/2007 3:02 AM PDT [address] [address] or August 05, 1996 RUBIA VALLES MD [address] [facility] [address] RE:PORFIRIO ZAVALA MR#:[id number] Valles: Mr. Porfirio Zavala returned to the [facility] today for a followup visit. 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 Mr. Zavala has failed numerous femoral nerve blocks, sciatic nerve blocks, and spinal cord blocks, and was at one time enrolled in the [facility]. Mr. Zavala's pain is currently [...] dictating for: Alina Moise M.D. Professor and Bonded Strand Operator, Division of Neurosurgery MARYANA/sajan cc: Seven Khan, Ph.D. Clinical Psychologist-Neuropsychologist documented in this encounter Plan of Treatment Not on filedocumented as of this encounter Visit Diagnoses Not on filedocumented in this encounter"
--- OUTSIDE RECORDS SUMMARY | ~2019-11-04 | XMS | Encounter Summary ---
Demographics + + + | Address | [address] | | | [place] [address] | + + + | Home Phone | | + + + | Preferred Language | Unknown | + + + | Marital Status | | + + + | Sabianism Affiliation | 1077 | + + + [...] Team Providers + +------+ + | Care Comb Tender Name | Role | Phone | + +------+ + | Rahul Silva MD | PCP | | + +------+ + Reason for Visit + + + | Reason | Comments | + + + | Advice Only | | + + + Encounter Details +--------+ + + + + | Date | Type | Department | Care Team | Description | +--------+ + + + + | 09/23/ | Telephone | [facility] | Brian Orosco MD | Advice Only | | 2019 | | VASCULAR SURGERY | [address] | | | | | [address] [place] | [place], [place] | | | | | [place], [place] | [address] | | | | | [address] | [phone] | | | | | [phone] | | | +--------+ + + + [...] 2020 | Visit | | [address] [facility] | | | | | | [address] [place] | | | | | | [address] | | | | | | (Fax) | | +--------+---------+ + + + documented as of this encounter Visit Diagnoses Not on filedocumented in this encounter"
--- OUTSIDE RECORDS SUMMARY | ~2019-11-04 | XMS | Encounter Summary ---
Demographics + + + | Address | [address] | | | [place] [address] | + + + | Home Phone [...] Team Providers + +------+ + | Care Bale Stacker Name | Role | Phone | + +------+ + | Rahul Silva MD | PCP | | + +------+ + Encounter Details +--------+ + + + + | Date | Type | Department | Care Team | Description | +--------+ + + + + | 11/10/ | Orders Only | [facility] | Farrukh Acuna MD | | | 2017 | | NEPHROLOGY [place] | [address] [place] | | | | | [address] [place] | [address] [place], [place] | | | | | [address] [place], [place] | [address] | | | | | [address] | | | | | | [phone] | | | +--------+ + + + [...] 2020 | Visit | | [address] [facility] | | | | | | [address] [place] | | | | | | [address] | | | | | | | | +--------+---------+ + + + documented as of this encounter Procedures + +--------+ + + + | Procedure Name | Priori | Date/Time | Associated Diagnosis | Comments | | | ty | | | | + +--------+ + + + | EXTERNAL LAB: CBC | Routin | 11/10/2017 | | Results for this | | | e | 3:00 PM | | procedure are in the | | | | PST | | results section. | + +--------+ + + + | URINALYSIS WITH | Routin | 11/10/2017 | | Results for this | | MICROSCOPIC IF | e | 3:00 PM | | procedure are in the | | INDICATED | | PST | | results section. | + +--------+ + + + | PROTEIN/CREATININE | Routin | 11/10/2017 | | Results for this | | RATIO, URINE | e | 3:00 PM | | procedure are in the | | | | PST | | results section. | + +--------+ + + + | URIC ACID | Routin | 11/10/2017 | | Results for this | | | e | 3:00 PM | | procedure are in the | | | | PST | | results section. | + +--------+ + + + | PARATHYROID HORMONE, | Routin | 11/10/2017 | | Results for this | | INTACT | e | 3:00 PM | | procedure are in the | | | | PST | | results section. | + +--------+ + + + | MAGNESIUM | Routin | 11/10/2017 | | Results for this | | | e | 3:00 PM | | procedure are in the | | | | PST | | results section. | + +--------+ + + + | FERRITIN | Routin | 11/10/2017 | | Results for this | | | e | 3:00 PM | | procedure are in the | | | | PST | | results section. | + +--------+ + + + | RENAL FUNCTION PANEL | Routin | 11/10/2017 | | Results for this | | | e | 3:00 PM | | procedure are in the | | | | PST | | results section. | + +--------+ + + + documented in this encounter Results Protein/Creatinine Ratio, Urine (11/10/2017 3:00 PM PST) + + + + + + | Component | Value | Ref Range | Performed | Pathologist | | | | | At | Signature | + + + + + + | Protein/Cre | 1491.2 (A) | 0 - 150 | EXTERNAL [...] | | | + +---------+ + + Urinalysis with Microscopic if Indicated (11/10/2017 3:00 PM PST) + + + [...] + + + | Spec Grav, | 1.008 | 1.005 - 1.030 | [...] + + + + | Total | 75 | | EXTERNAL | | | Protein | | | LAB | | + + + + + + | pH, Urine | 6 | 5 - 9 | EXTERNAL | [...] + + + | Glucose, | Comment: 100 | | EXTERNAL | | | Urine | | | LAB | | + + + + + + + + | Specimen | + + | Urine specimen | | (specimen) | + + + + + | Narrative | Performed At | + + + | Bacteria: 1+ | EXTERNAL LAB | + + + + +---------+ + + | Performing | Address | City/State/Zipcode | Phone Number | | Organization | | | | + +---------+ + + | EXTERNAL LAB | | | | + +---------+ + + External Lab: CBC (11/10/2017 3:00 PM PST) + + + + + + | Component | Value | Ref Range | Performed | Pathologist | | | | | At | Signature | + + + + + + | WBC | 8.6 | 4.5 - 11.0 10 | EXTERNAL | | | | | | LAB | | + + + + + + | RED CELL | 3.86 (A) | 4.3 - 5.7 10 | [...] + + + + | MCV | 86.6 | 81 - 99 fL | EXTERNAL [...] + + + + | Platelet | 225 | 140 - 440 K/ L | EXTERNAL | | | Count | | | LAB | | | Plasma | | | | | + + + + + + | RDW-CV | 15.6 (A) | 10.5 - 15.0 % | [...] | + +---------+ + + Uric Acid (11/10/2017 3:00 PM PST) + +-------+ + + + | Component | Value | Ref Range | Performed | Pathologist | | | | | At | Signature | + +-------+ + + + | Uric Acid | 6.9 | 4.4 - 7.6 | EXTERNAL | [...] + +---------+ + + Parathyroid Hormone, Intact (11/10/2017 3:00 PM PST) + + + + + + | Component | Value | Ref Range | Performed | Pathologist | | | | | At | Signature | + + + + + + | PTH INTACT | 188.5 (A) | 15 - 65 pg/mL | [...] | | + +---------+ + + Magnesium (11/10/2017 3:00 PM PST) + +---------+ + + + [...] | | + +---------+ + + Ferritin (11/10/2017 3:00 PM PST) + +-------+ + + + | Component | Value | Ref Range | Performed | Pathologist | | | | | At | Signature | + +-------+ + + + | Ferritin, | 64.62 | 30 - 400 ng/mL | EXTERNAL [...] + +---------+ + + Renal Function Panel (11/10/2017 3:00 PM PST) + + + + + + | Component | Value | Ref Range | Performed | Pathologist | | | | | At | Signature | + + + + + + | Glucose, | 170 (A) | 70 - 100 mg/dL | EXTERNAL | | | Fasting | | | LAB | | + + + + + + | BUN | 30 (A) | 6 - 23 mg/dL | EXTERNAL | | | | | | LAB | | + + + + + + | Creatinine | 2.16 (A) | 0.70 - 1.18 | EXTERNAL [...] 103 | 95 - 112 mmol/L | EXTERNAL [...] | | | LAB | | | [facility] | | | | | + + + + + + | Phosphorus, | 4.4 | 2.5 - 5.0 | EXTERNAL | | | Inorganic | | | LAB | | + + + + + + | BUN/Creatin | 13.9 | 6.0 - 28.6 | EXTERNAL | | | ine Ratio | | | LAB | | + + + + + + | Calcium | 8.1 (A) | 8.4 - 10.2 | EXTERNAL [...]
--- OUTSIDE RECORDS SUMMARY | ~2019-11-04 | XMS | Encounter Summary ---
Demographics + + + | Address | [address] | | | [place] [address] | + + + | Home Phone [...] Team Providers + +------+ + | Care Lead Technician Name | Role | Phone | + +------+ + PCP | Unavailable | + +------+ + Encounter Details +--------+ + + + + | Date | Type | Department | Care Team | Description | +--------+ + + + + | 05/28/ | Hospital | [facility] | Elisabeth, | CORON ATHEROSCL | | 2002 - | Encounter | [facility] | MD Joshua | EEK CORON [facility]ESSEL | | | | CLINICAL DECISION | [address] [place] | | | 05/29/ | | [address] | [address] [place], [place] | | | 2002 | | [place], [place] | [address] | | | | | [address] | [phone] | | | | | [phone] | | | +--------+ + + + [...] Description | +--------+---------+ + + + | 01/06/ | Office | Nephrology | Farrukh Acuna MD | | | 2019 | Visit | | [address] [facility] | | | | | | [address] [place] | | | | | | [address] | | | | | | | | +--------+---------+ + + + documented as of this encounter Visit Diagnoses + + | Diagnosis | + + | Coronary atherosclerosis of [place] coronary artery | + + documented in this encounter"
--- OUTSIDE RECORDS SUMMARY | ~2019-11-04 | XMS | Encounter Summary ---
Demographics + + + | Address | [address] | | | [place] [address] | + + + | Home Phone [...] Providers + +------+ + | Care Manager Case Name | Role | Phone | + +------+ + | Rahul Silva MD | PCP | | + +------+ + Encounter Details +--------+ + + + + | Date | Type | Department | Care Team | Description | +--------+ + + + + | 10/08/ | Orders Only | [facility] | Farrukh Acuna MD | | | 2016 | | NEPHROLOGY [place] | [address] [place] | | | | | [address] [place] | [address] [place], [place] | | | | | [address] [place], [place] | [address] | | | | | [address] | | | | | | [phone] | | | +--------+ + + + [...] 2020 | Visit | | [address] [facility] | | | | | | [address] [place] | | | | | | [address] | | | | | | | [...]
--- OUTSIDE RECORDS SUMMARY | ~2019-11-04 | XMS | Encounter Summary ---
Demographics + + + | Address | [address] | | | [place] [address] | + + + | Home Phone | | + + + | Preferred Language | Unknown | + + + | Marital Status | | + + + | Rastafarian Affiliation | 1077 | + + + [...] Team Providers + +------+ + | Care Hospital Intern Name | Role | Phone | + +------+ + | Rahul Silva MD | PCP | | + +------+ + Encounter Details +--------+ + + + + | Date | Type | Department | Care Team | Description | +--------+ + + + + | 07/06/ | Orders Only | [facility] | Farrukh Acuna MD | | | 2018 | | NEPRHOLOGY [place] | [address] [place] | | | | | [address] [place] | [address] [place], [place] | | | | | [address] [place], [place] | [address] | | | | | [address] | | | | | | [phone] | | | +--------+ + + + [...] [place] | | | | | | [address] | | | | | | | [...]
--- OUTSIDE RECORDS SUMMARY | ~2019-11-04 | XMS | Encounter Summary ---
Demographics + + + | Address | [address] | | | [place] [address] | + + + | Home Phone [...] [place] | | | | | [address] | | + + + + + Care Team Providers + +------+ + | Care Package Pick Up Name | Role | Phone | + +------+ + | Rahul Coyne MD | PCP | | + +------+ + Reason for Visit + + + | Reason | Comments | + + + | LBP - Low back pain | | + + + | Pain in left leg | | + + + Consultation (Routine) +--------+--------+ + + + + | Status | Reason | Specialty | Diagnoses / | Referred By | Referred To | | | | | Procedures | Contact | Contact | +--------+--------+ + + + + | Closed | | Pain | Diagnoses | Shira, | Tommie, | | | | Management | Late | Rahul | MD Seven | | | | | complication | MD [address] | [address] | | | | | s of | [address] | Ave | | | | | amputation | [place], | [place], [place] | | | | | stump, | [place] [address] | [address] | | | | | unspecified | Phone: | Phone: | | | | | | [phone] | [phone] | | | | | | Fax: | Fax: | | | | | | [phone] | [phone] | +--------+--------+ + + + + Encounter Details +--------+---------+ + + + | Date | Type | Department | Care Team | Description | +--------+---------+ + + + | 04/10/ | Office | [facility] | Seven Reilly MD | Low back pain; | | 2009 | Visit | Pain Center at | [address] | Herniated lumbar | | | | [facility] | [place], [place] | intervertebral disc; | | | | [address] | [address] | Stump pain (HCC) | | | | Mailcode: [facility] | [phone] | | | | | [facility] | | | | | | and Healing, | | | | | | Building | | | | | | Floor [place], [place] | | | | | | [address] | | | | | | [phone] | | | +--------+---------+ + + + Social History + + + +--------+------+ [...] in this encounter Patient Instructions Patient Instructions Seven Reilly MD - 04/10/2010 2:27 PM [address] up with Dr. Maico Coyne MD regarding recommendations from today's appointment. documented in this encounter Progress Notes Seven Reilly MD - 04/10/2010 2:10 PM PDTI saw and evaluated the patient with Fellow Andr jas Martinez MD, who conducted the history. I reviewed the history in detail. I was present for the examination and formulation portions of the encounter. I agree with the findings and the plan of care as documented in this note, and I edited the trainee's note. Seven Reilly MD, DABA, [facility] P DTMariano Martinez MD - 04/10/2010 12:30 PM PDT [facility] Office Visit 04/10/2010 Kavon Andujar; ; : 1940 Mr. Andujar was referred for pain management consultation by RAHUL COYNE MD [address] [place] [address], [place] [address] Reason for visit: Chief Complaint Patient presents with LBP - Low back pain Pain in left leg History of Present Illness: Kavon Andujar is a 69 y.o. year-old male with a 17 yea r history of intermittent, sharp and burning low back and left stump pain. Pain began on Mar following an above-knee amputation. The pain does radiate to left posterior thigh to stump. His pain has not progressed since the onset of pain. He notes no aggravating fact ors. His pain is improved by medications and meditation. He is satisfied with his current treatment program. 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 The amputati on was revised in 1996 secondary to pain. He underwent neuroma excision by the plastic surge on in 1997. He now presents with unchanged stump pain over the past few years. He has been taking oxycodone 15 mg 8 tabs/day, hydromorphone 2 mg 12 tabs/day, and duloxeti ne (Cymbalta) 60 mg daily for pain control, with 90% relief. He has been previously diagnosed with stump pain. He has been referred to the [facility] for consultation regarding this ongoing pain problem. Past treatments for this pain complaint has included medications such as PAIN MEDICINES: Opioids: Butorphanol (Stadol): Why stopped?: Not Effective. Codeine, Tylenol #3, #4, 222: Why stopped?: Not Effective. Fentanyl patches (Duragesic): Why stopped?: Not Effective. Methadone (Dolophine, Methadose): Why stopped?: Not Effective. Morphine (Janelle Maldonado, Ms Contin, MSIR): Why stopped?: Not Effective. Meperidine (Demerol): Why stopped?: Not Effective. Propoxyphene (Darvon): Why stopped?: Not Effective. ANTI-CONVULSANTS: Carbamazepine (Tegretol): Why stopped?: Not Effective. MUSCLE RELAXANTS: Cyclobenzaprine (Flexeril): Why stopped?: Not Effective. Diazepam (Valium): Why stopped?: Not Effective. ANTI-DEPRESSANTS: Bupropion (Wellbutrin): Why stopped?: Not Effective. SLEEP: Tylenol-PM: Why stopped?: Not Effective. ANTI-INFLAMMATORIES: Celecoxib (Celebrex): Why stopped?: Not Effective. Ibuprofen (Advil, Motrin): Why stopped?: Not Effective. OTHER: Acetaminophen (Tylenol): Why stopped?: Not Effective. Lidocaine patches: Why stopped?: Not Effective. surgery, epidural steroid injections (not h elpful), physical therapy, massage, TENS therapy (not helpful), spinal cord stimulator trial (not effective), lumbar sympathetic blocks, peripheral nerve blocks, and biofeedback. He fe els that the most effective treatments include: medications. SLING OPERATOR Brief Pain Inventory: (ten= worst possible pain or complete interference) Right Now: 5 (04/10/101315) Least in 24 hours: 2 (04/10/101315) Worst in 24 hours: 10 (04/10/101315) Average: 6 (04/10/101315) % Relief (med/treat): 80 (04/10/101315) General Activity: 2 (04/10/101315) Mood: 7 (04/10/101315) Walking Ability: 0 (04/10/101315) Normal Work: 7 (04/10/101315) Relations with Others: 3 (04/10/101315) Enjoyment of Life: 5 (04/10/101315) Sexual Activity: 10 (04/10/101315) Sleep: 7 (04/10/101315) Past Medical History Diagnosis Date Degenerative disc disease lumbar DM (diabetes mellitus) Amputation stump pain Sleep apnea Cataracts, both eyes Hypertension Thyroid disorder GERD (gastroesophageal reflux disease) Adjustment reaction with anxiety and depression Coagulation disorder Hearing reduced Arthritis Stroke x 4 Past Surgical History Procedure Date Hx amputation 1992 Hx cholecystectomy Hx hernia repair Hx knee arthroscopy Ct biopsy pancreas perc Tumor excision. Family History Problem Relation Alcohol/Drug Father Anesthesia Mother Arthritis Mother Thyroid Mother Stroke Maternal Grandmother History Alcohol Use No History Drug Use No History Social History Narrative , 2 children. 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 Allergies NKDA Current outpatient prescriptions Medication Sig amlodipine (NORVASC) 5 mg Oral Tablet Take 5 mg by mouth once daily. atenolol 50 mg Oral Tablet Take 50 mg by mouth once daily. atorvastatin (LIPITOR) 80 mg Oral Tablet Take 80 mg by mouth once daily. clopidogrel (PLAVIX) 75 mg Oral Tablet Take 75 mg by mouth once daily. doxepin 150 mg Oral Capsule Take 10 mg by mouth once daily at bedtime. duloxetine (CYMBALTA) 60 mg Oral Capsule, Delayed Release(E.C.) Take 60 mg by mouth onc e daily. gabapentin 600 mg Oral Tablet Take 1,200 mg by mouth four times daily. glimepiride 4 mg Oral Tablet Take 4 mg by mouth once daily with breakfast. hydromorphone 2 mg Oral Tablet Take 2 mg by mouth every two hours as needed. levothyroxine 50 mcg Oral Tablet Take 50 mcg by mouth once daily. lisinopril 40 mg Oral Tablet Take 40 mg by mouth once daily. metolazone 5 mg Oral Tablet Take 5 mg by mouth once daily. oxycodone, immediate release, 15 mg Oral Tablet Take 15 mg by mouth every three hours a s needed. Radiology/Diagnostic Tests: MRI lumbar spine: 06/09/09 Conclusion: Further posterior annulus contained disc bulging at both the L2/3 and L3/4 levels when comp ared to midsagittal imaging of four years ago. However, on axial imaging the findings are pr sunshine much the same with mild to moderate central canal stenosis demonstrated at the L3/4 lev el as described above. As part of today's visit the [facility] new patient questionnaire was review ed. Please refer to this document for additional details of his current pain problem, PMH, PSH, FH, SH, and ROS. In the questionnaire, Mr. Andujar indicated that his goals and expectations from today's vis it included the followin. What do you expect from our pain program? A diagnosis (to help find the cause of pain), Help in coping with the pain, A reduction in pain and A cure 47. What types of treatment do you expect from your visits to the [facility] ? Don't know Vital Signs: BP 140/54 | Pulse 80 | Temp(Src) 37.1 C (98.8 F) (Oral) | Resp 16 | Ht 1.7 02 m (5' 7") | Wt 89.359 kg (197 lb) | SpO2 96% Body mass index is 30.85 kg/(m^2). Review of Systems Constitutional: Negative for fever, chills, weight loss and diaphoresis. HENT: Negative for ear pain, neck pain and tinnitus. Eyes: Negative for blurred vision and double vision. Respiratory: Positive for cough and sputum production. Negative for shortness of breath and wheezing. Cardiovascular: Negative for chest pain, palpitations and leg swelling. Gastrointestinal: Positive for diarrhea. Negative for heartburn, nausea, vomiting, abdomina l pain and constipation. Genitourinary: Negative for dysuria, urgency and frequency. Musculoskeletal: Positive for back pain. Negative for joint pain. Skin: Negative for rash and itching. Neurological: Negative for dizziness, tingling, sensory change and headaches. Endo/Heme/Allergies: Does not bruise/bleed easily. Psychiatric/Behavioral: Negative for depression. The patient has insomnia. The patient is n ot nervous/anxious. Physical Exam Constitutional: No distress. HENT: Head: Normocephalic and atraumatic. Eyes: Right eye exhibits no discharge. Left eye exhibits no discharge. No scleral icterus. Neck: No tracheal deviation present. Cardiovascular: Regular rhythm. Exam reveals no gallop and no friction rub. No murmur heard. Pulmonary/Chest: No respiratory distress. He has wheezes. He has no rales. He exhibits no t enderness. Abdominal: Soft. Bowel sounds are normal. He exhibits no distension. No tenderness. Musculoskeletal: Right shoulder: He exhibits no tenderness, no swelling and no effusion. Neurological: He is alert. Reflex Scores: Tricep reflexes are 1+ on the right side and 1+ on the left side. Bicep reflexes are 1+ on the right side and 1+ on the left side. Brachioradialis reflexes are 1+ on the right side and 1+ on the left side. Patellar reflexes are 2+ on the right side. Achilles reflexes are 1+ on the right side. Neurological: Cranial Nerves: vision bilaterally intact,extraocular movements intact,pupils equal and res ponsive to light,palatine reflex positive,tongue range of motion symmetrical,hearing bilater ally intact,facial sensation intact to light touch and pin,sternocleidomastoid power bilater ally 5+ Sensory examination: intact light touch bilaterally in upper extremities (including left lo wer extremity remnant), intact light touch bilaterally in lower extremities, intact pin bila terally in upper extremities, intact pin bilaterally in lower extremities and vibration in l eft lower extremity remnant Allodynia: absent Hyperalgesia: absent Skin: Skin is warm and dry. No rash noted. He is not diaphoretic. No erythema. No pallor. Skin is completely intact on left lower extremity remnant (above-knee amputation). Psychiatric: Affect normal. Ortho Exam Neurologic Exam Gait, Coordination, and Reflexes Reflexes Right brachioradialis: 1+ Left brachioradialis: 1+ Right biceps: 1+ Left biceps: 1+ Right triceps: 1+ Left triceps: 1+ Right patellar: 2+ Right achilles: 1+ For today's evaluation, I have included my personal review of Mr. Andujar's history and phys ical examination. I also used the following components in my medical decision making: Radiology Reports reviewed. Review and summary of old medical records (source: [employer] as summarized in the body of the note. Impressions: Patient Active Problem List Diagnoses Date Noted Low back pain [724.2A] 04/10/2010 Herniated lumbar intervertebral disc [722.10H] 04/10/2010 Stump pain [997.69D] 04/10/2010 724.2A Low back pain 722.10H Herniated lumbar intervertebral disc 997.69D Stump pain Assessment: Kavon Andujar is a 69 y.o. male with a history of above-knee amputation for ischemi a in 1992 and has had persistent chronic stump pain since then. He has tried multiple therap ies in the past to alleviate the pain including, surgery, physical therapy, multiple medicat ions, TENS therapy, epidural steroid injections, lumbar sympathetic blocks, spinal cord stim ulator trial, and massage. His pain is currently well controlled, reporting 90% pain relief, with medication regimen of hydromorphone, oxycodone, gabapentin, and duloxetine (Cymbalta). As he has had failed multiple therapies and he is not interested in invasive procedures, we feel that it would be reasonable to continue his current therapy. If at some point his pain control is unsatisfactory, one medication that has not been tried is oxcarbazepine (Trilept al). This is an anticonvulsant with prominent sodium channel blocking activity. It has pain relieving properties somewhat similar to carbamazepine, but is often better tolerated. It is a first line treatment for trigeminal neuralgia and can have utility in other neuropathic conditions. Hyponatremia is not uncommon, so electrolyte monitoring is indicated. The typi kyrie starting dose is 150 mg at night, titrating on a bid (twice a day) schedule to a target of 300 mg BID. It is available as a generic medication. Plan: 1. None. Suggestions to primary care provider: 1. Continue current medication regimen. 2. Consider starting oxcarbazepine (Trileptal) if current therapy is not beneficial at some point. This is an anticonvulsant with prominent sodium channel blocking activity. It has p ain relieving properties somewhat similar to carbamazepine, but is often better tolerated. It is a first line treatment for trigeminal neuralgia and can have utility in other neuropat hic conditions. Hyponatremia is not uncommon, so electrolyte monitoring is indicated. The t ypical starting dose is 150 mg at night, titrating on a bid (twice a day) schedule to a targ et of 300 mg BID. It is available as a generic medication. Follow up: none scheduled at [facility] [place]. Mariano Martinez MD Pain Fellow [facility] [place] [facility] documented in this encounter Plan of Treatment Not on filedocumented as of this encounter Visit Diagnoses + + | Diagnosis | + + | Low back pain Lumbago | + + | Herniated lumbar intervertebral disc Displacement of lumbar intervertebral disc | | without myelopathy | + + | Stump pain (HCC) Other amputation stump complication | + + documented in this encounter
--- OUTSIDE RECORDS SUMMARY | ~2019-11-04 | XMS | Encounter Summary ---
Demographics + + + | Address | [address] | | | [place] [address] | + + + | Home Phone | | + + + | Preferred Language | Unknown | + + + | Marital Status | | + + + | Buddhist Affiliation | [phone] | + + + [...] Team Providers + +------+ + | Care Card Setter Name | Role | Phone | + [...] [address] | | | | | [place], [place] | [place], [place] | | | | | [address] | [address] | | | | | [phone] | [phone] | | | | | | | [...] 2020 | Visit | | [address] [facility] | | | | | | [facility] | | | | | | [address] | | | | | | | [...]
--- OUTSIDE RECORDS SUMMARY | ~2019-11-04 | XMS | Encounter Summary ---
Demographics + + + | Address | [address] | | | [place] [address] | + + + | Home Phone | | + + + | Preferred Language | Unknown | + + + | Marital Status | Single | + + + | Episcopal Affiliation | PRO | + + + [...] [place] | | | | | [address] | | + + + + + Care Team Providers + +------+ + | Care Wrapper Sheeter Name | Role | Phone | + [...] [facility] | Clinic | | | | [facility] | [address] | | | | | | [place], [place] | | | | | | [address] | | | +--------+ + + + [...] as of this encounter Progress Notes Interface, Client Experience Consultant In - 03/27/2007 3:12 AM PDT CLINIC [...] an abnormal AC-BE, he was referred to [facility] for colonoscopy. MEDICATIONS: 1. Vicodin. 2. Various [...] Dr. Valles who is his physician in [place], [place]. He has made me aware that [...] Thomas Dubois M.D. Fellow, Gastroenterology SHANEL/stephon cc: [facility] [place] documented in this encounter Plan of Treatment Not on filedocumented as of this encounter Visit Diagnoses Not on filedocumented in this encounter"
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
--- OUTSIDE RECORDS SUMMARY | ~2019-11-04 | XMS | Encounter Summary ---
Demographics + + + | Address | [address] | | | [place] [address] | + + + | Home Phone [...] Team Providers + +------+ + | Care Door Clamp Operator Name | Role | Phone | [...] | Transaction, | | | | | [place], [place] | Provider Unknown | | | | | [address] | | | | | | [phone] | | | +--------+ + + + [...] 2020 | Visit | | [address] [facility] | | | | | | [address] [place] [address] | | | | | | [address] | | | | | | | [...]
--- OUTSIDE RECORDS SUMMARY | ~2019-11-04 | XMS | Encounter Summary ---
Demographics + + + | Address | [address] | | | [place] [address] | + + + | Home Phone [...] Team Providers + +------+ + | Care Property Site Manager Name | Role | Phone | + +------+ + | Rahul Silva MD | PCP | | + +------+ + Encounter Details +--------+ + + + + | Date | Type | Department | Care Team | Description | +--------+ + + + + | 11/10/ | Orders Only | [facility] | Conversion | | | 2017 | | NEPHROLOGY CONNIE | Transaction, | | | | | [address] | Provider Unknown | | | | | [address] [place] [address] | | | | | | [address] | (Fax) | | | | | [phone] | | | +--------+ + + + [...] Visit | | [address] [facility] | | | | | | [address] [facility] [address] | | | | | | [address] | | | | | | | [...]
--- OUTSIDE RECORDS SUMMARY | ~2019-11-04 | XMS | Encounter Summary ---
Demographics + + + | Address | [address] | | | [place] [address] | + + + | Home Phone | | + + + | Preferred Language | Unknown | + + + | Marital Status | | + + + | Pentecostal Affiliation | 1077 | + + + | Race | Unknown | + + + | Ethnic Group | Unknown | + + + Author + + + | Author | [facility] | | | and [place] | + + + | Organization | [facility] | | [...] Team Providers + +------+ + | Care Hunting Guide Name | Role | Phone | + +------+ + | Rahul Silva MD | PCP | | + +------+ + Encounter Details +--------+ + + + + | Date | Type | Department | Care Team | Description | +--------+ + + + + | 09/18/ | Orders Only | [facility] | Conversion | | | 2018 | | NEPHROLOGY CONNIE | Transaction, | | | | | [address] | Provider Unknown | | | | | [address] [address] | | | | | | [address] | (Fax) | | | | | [phone] | | | +--------+ + + + [...] 2020 | Visit | | [address] [facility] | | | | | | [address] [facility] | | | | | | [address] | | | | | | | | +--------+---------+ + + + documented as of this encounter Procedures + +--------+ + + + | Procedure Name | Priori | Date/Time | Associated Diagnosis | Comments | | | ty | | | | + +--------+ + + + | BASIC METABOLIC | Routin | 09/18/2018 | | Results for this | | PANEL | e | 12:00 AM | | procedure are in the | | | | PDT | | results section. | + +--------+ + + + documented in this encounter Results Basic Metabolic Panel (09/18/2018 12:00 AM PDT) + + + + + + | Component | Value | Ref Range | Performed | Pathologist | | | | | At | Signature | + + + + + + | Glucose, | 121 (A) | 70 - 100 mg/dL | EXTERNAL | | | Fasting | | | LAB | | + + + + + + | BUN | 36 (A) | 6 - 23 mg/dL | EXTERNAL | | | | | | LAB | | + + + + + + | Creatinine | 3.06 (A) | 0.70 - 1.18 | EXTERNAL | | | | | mg/dL | LAB | | + + + + + + | BUN/Creatin | 11.8 | 6 - 28.6 | EXTERNAL | | | ine Ratio | | | LAB | | + + + + + + | Calcium | 8 (A) | 8.5 - 10.3 | EXTERNAL [...] + + + + | CO2 | 17 (A) | 19 - 31 mmol/L | EXTERNAL | | | | | | LAB | | + + + + + + | Anion Gap | 17.3 | 7 - 21 mmol/L | EXTERNAL | | | | | | LAB | | + + + + + + | Estimated | 20 | mg/dL | EXTERNAL | | | [...]
--- OUTSIDE RECORDS SUMMARY | ~2019-11-04 | XMS | Encounter Summary ---
Demographics + + + | Address | [address] | | | [place] [address] | + + + | Home Phone [...] Providers + +------+ + | Care Material Preparation Worker Name | Role | Phone | [...] + + | 09/13/ | Telephone | [facility] | Terri Aguilar, | Follow-up | | 2018 | | VASCULAR SURGERY | [employer] | | | | | [address] | | | | | | [address] [facility] [place] | | | | | | [address] | | | | | | [phone] | | | +--------+ + + + [...] 2020 | Visit | | [address] [facility] | | | | | | [address] [place] | | | | | | [address] | | | | | | | | +--------+---------+ + + + documented as of this encounter Visit Diagnoses Not on filedocumented in this encounter"
--- OUTSIDE RECORDS SUMMARY | ~2019-11-04 | XMS | Encounter Summary ---
Demographics + + + | Address | [address] | | | [place] [address] | + + + | Home Phone [...] + + | Author | [facility] | | | and [place] | + + + | Organization | [facility] | | | [...] Team Providers + +------+ + | Care Loop Sewer Name | Role | Phone | + +------+ + | Rahul Silva MD | PCP | | + +------+ + Encounter Details +--------+ + + + + | Date | Type | Department | Care Team | Description | +--------+ + + + + | 02/12/ | Orders Only | [facility] | Conversion | | | 2018 | | NEPHROLOGY CONNIE | Transaction, | | | | | [address] | Provider Unknown | | | | | [address] [address] | | | | | | [address] | (Fax) | | | | | [phone] | | | +--------+ + + + [...] 2020 | Visit | | [address] [facility] | | | | | | [address] [facility] | | | | | | [address] | | | | | | | [...]
--- OUTSIDE RECORDS SUMMARY | ~2019-11-04 | XMS | Encounter Summary ---
Demographics + + + | Address | [address] | | | [place] [address] | + + + | Home Phone | | + + + | Preferred Language | Unknown | + + + | Marital Status | Single | + + + | Worship Affiliation | PRO | + + + | Race | White | + + + | Ethnic Group | Not or | + + + Author + + + | Author | [facility] | + + + | Organization | [facility] | + + + | Address | Unknown | + + + | Phone | Unavailable | + + + Support + + + + + | Name | Relationship | Address | Phone | + + + + + | Darci Andujar | [address] | [place] | | | | | [address] | | + + + + + Care Team Providers + +------+ + | Care Receiving Checker Name | Role | Phone | + +------+ + | Rahul Silva MD | PCP | | + +------+ + Encounter Details +--------+ + + + + | Date | Type | Department | Care Team | Description | +--------+ + + + + | 12/28/ | Results | Registration [id number] | | | | 1996 | Only | [address] | | | | | | Rene Mailcode: [id number] | | | | | | [place], [place] | | | | | | [address] | | | | | | [phone] | | | +--------+ + + + [...] | + +--------+ + + + | MICROBIOLOGY TESTS 1 | Routin | 12/28/1996 | | Results for this | | | e | 2:15 PM | | procedure are in the | | | | PST | | results section. | + +--------+ + + + | SURGICAL PATHOLOGY | Routin | 12/28/1996 | | Results for this | | | e | | | procedure are in the | | | | | | results section. | + +--------+ + + + documented in this encounter Results MICROBIOLOGY TESTS 1 (12/28/1996 2:15 PM PST) + + + + + + | Component | Value | Ref Range | Performed | Pathologist | | | | | At | Signature | + + + + + + | CULTURE | Gram Smear:OrgA NO | | | | | RESULT | ORGANISMS SEEN | | | | | | WBC NONE | | | | | | SEEN | | | | | | RBC 2+Diagnosis | | | | | | FAILURE | | | | | | ABOVE KNEE | | | | | | AMPUTATIONTest Ordered | | | | | | EXUDATE | | | | | | CULTUREOrdering Loc | | | | | | 9CSpec Set Up Date | | | | | | 12/28Spec Set Up Time | | | | | | 2027Specimen | | | | | | Type SWABSource | | | | | | Body Site LEFT ABOVE | | | | | | KNEE AMPUTATIONReport | | | | | | Status | | | | | | FINALPrelim Result | | | | | | NO GROWTH IN 24 | | | | | | HOURSCulture Result | | | | | | NO GROWTH IN 3 | | | | | | DAYSDate Of Final Re | | | | | | | | | | + + + + + + + + | Specimen | + + | | + + + + + + + | Performing | Address | City/State/Zipcode | Phone Number | | Organization | | | | + + + + + | [facility] | [address] | [place] [address] | | | PATHOLOGY | [address] | | | + + + + + SURGICAL PATHOLOGY (12/28/1996) + + + + + + | [...] PATHOLOGY | | | | Patient Age: 56 | | | | | | year old male. | | | | | | Patient who is status | | | | | | post left above knee | | | | | | amputation three years | | | | | | agoand has developed a | | | | | | painful stump. | | | | | | GROSS DESCRIPTION | | | | | | Specimens received: One | | | | | | in formalin #1 | | | | | | DEBRIDEMENT OF LEFT | | | | | | ABOVE KNEE AMPUTATION: | | | | | | It consists of | | | | | | multiplefragments of bynum | | | | | | and brown, hemorrhagic | | | | | | tissue measuring 4 x 4.5 | | | | | | x 4.5cm. in greatest | | | | | | dimension. The specimen | | | | | | is serially sectioned | | | | | | andrepresentative | | | | | | sections are submitted | | | | | | in a single cassette. | | | | | | All tissue sections | | | | | | taken are submitted for | | | | | | microscopic | | | | | | evaluation.Dictated by: | | | | | | Fernando Bautista M.D./eladio | | | | | | FINAL | | | | | | DIAGNOSISDEBRIDEMENT OF | | | | | | LEFT ABOVE KNEE | | | | | | AMPUTATION: SKELETAL | | | | | | MUSCLE WITH FOCAL | | | | | | ATROPHY AND DENSE | | | | | | FIBROUS TISSUE WITH | | | | | | GRANULATION TISSUE | | | | | | Case reviewed by: | | | | | | Hortensia Sotelo M.D.Also | | | | | | seen by: Mckay Stewart | | | | | Idris I have reviewed the | | | | | | blancas findings ofthis | | | | | | case with the fellow and | | | | | | agree with the | | | | | | interpretation | | | | | | provided.t:12/30/96:cc | | | | | | My electronic | | | | | | signature indicates that | | | | | | I have personally | | | | | | reviewed alldiagnostic | | | | | | slides, the gross and/or | | | | [...] | + + + + + | [facility] | [address] | [place] [address] | | | PATHOLOGY | [address] | | | + + + + + documented in this encounter Visit Diagnoses Not on filedocumented in this encounter"
--- OUTSIDE RECORDS SUMMARY | ~2019-11-04 | XMS | Encounter Summary ---
Demographics + + + | Address | [address] | | | [place] [address] | + + + | Home Phone [...] Team Providers + +------+ + | Care Energy Operations Vice President Name | Role | Phone | + [...] Description | +--------+--------+ + + + | 08/18/ | Refill | [facility] | Sandy Capellan | Medication Refill | | 2019 | | NEPRHOLOGY PAIGE Valadez RN | | | | | [address] | | | | | | [address] [place], [place] | | | | | | [address] | | | | | | [phone] | | | +--------+--------+ + + + [...] [place] | | | | | | [address] | | | | | | | | +--------+---------+ + + + documented as of this encounter Visit Diagnoses + + | Diagnosis | + + | Stage 5 chronic kidney disease not on chronic dialysis (HCC) - Primary | + + | Secondary hyperparathyroidism (HCC) Secondary hyperparathyroidism (of renal origin) | + + documented in this encounter"
--- OUTSIDE RECORDS SUMMARY | ~2019-11-04 | XMS | Encounter Summary ---
Demographics + + + | Address | [address] | | | [place] [address] | + + + | Home Phone [...] Team Providers + +------+ + | Care Solid Waste Landfill Technician Name | Role | Phone | [...] + + | 09/03/ | Telephone | [facility] | Simon, | Lab Results | | 2019 | | NEPHROLOGY [place] | [facility] | | | | | [address] | [place] | | | | | [address] [place], [place] | | | | | | [address] | | | | | | [phone] | | | +--------+ + + + [...] 2020 | Visit | | [address] [facility] | | | | | | [address] [place] | | | | | | [address] | | | | | | | | +--------+---------+ + + + documented as of this encounter Visit Diagnoses Not on filedocumented in this encounter"
--- OUTSIDE RECORDS SUMMARY | ~2019-11-04 | XMS | Encounter Summary ---
Demographics + + + | Address | [address] | | | [place] [address] | + + + | Home Phone [...] Team Providers + +------+ + | Care Maintenance Shop Clerk Name | Role | Phone | [...] + + | 08/07/ | Telephone | [facility] | Steven Tobar MD | Post-op Question | | 2016 | | OTOLARYNGOLOGY [address] | [address] [place] | (ear) | | | | [address] | [address] [place], | | | | | [place], [place] | [place] [address] | | | | | [address] | [phone] | | | | | [phone] | | | +--------+ + + + [...] [place] | | | | | | [address] | | | | | | | | +--------+---------+ + + + documented as of this encounter Visit Diagnoses Not on filedocumented in this encounter"
--- OUTSIDE RECORDS SUMMARY | ~2019-11-04 | XMS | Encounter Summary ---
Demographics + + + | Address | [address] | | | [place] [address] | + + + | Home Phone [...] + +------+ + | Care Director Of Student Aid Name | Role | Phone | + +------+ + | Rahul Silva MD | PCP | | + +------+ + Encounter Details +--------+---------+ + + + | Date | Type | Department | Care Team | Description | +--------+---------+ + + + | 07/26/ | Office | [facility] | Farrukh Acuna MD | Stage 5 chronic | | 2019 | Visit | NEPHROLOGY [place] | [address] [place] | kidney disease not | | | | [address] | [address] [place], [place] | on chronic dialysis | | | | [address] | [address] | (HCC) (Primary Dx); | | | | [place], [place] | | Edema of lower | | | | [address] | | extremity; Tobacco | | | | [phone] | | dependence syndrome; | | | [...] Also: I see no need for acute MAP MOUNTER. I see no need to send him [...] Notes by Farrukh Acuna MD at 05/31/19 8488 Author: Farrukh Acuna MD Service: (none) Author Type: Physician Filed: 05/31/19 1232 Encounter Date: 05/31/2019 Status: Signed Porcelain Finisher: Farrukh Acuna MD (Physician) Patient Active Problem List Diagnosis CKD (chronic kidney disease), stage IV Type 2 diabetes mellitus with diabetic nephropathy, with long-term current use of insul in ([facility]) FH: HTN (hypertension) Edema of right lower [...] 10/2016 with severe pneumonia, severe ZEKE; needed MAP MOUNTER for ~5 weeks b efore renal function recovery mid 12/2016. He was admitted to [facility] for 3 nights in July [...] 19.5 (A) 05/27/2019 LABPROT 2,445.6 (A) 03/01/2019 [id number] 30 10/08/2018 Assessment: Mr. Andujar is a 78 y.o. male patient with stage IV CKD on a background of diabetes & hypert ension and recent hospitalization for C-diff and hehydration. The most likely pathology here is that of diabetic nephropathy +/- hypertensive nephrosclerosis/arteriolosclerosis. He was hospitalized in 10/2016 with severe pneumonia, severe ZEKE; needed MAP MOUNTER for ~5 weeks b efore renal function [...] Also: I see no need for acute MAP MOUNTER. I see no need to send him [...] concerns. Truly yours, Farrukh Acuna MD FACP, [facility], FA documented in this enco unter Plan of Treatment +--------+---------+ + + + | Date | Type | Specialty | Care Team | Description | +--------+---------+ + + + | 12/06/ | Office | Nephrology | Farrukh Acuna MD | | | 2019 | Visit | | [address] [facility] | | | | | | [address] [place], [place] | | | | | | [address] | | | | | | | [...]
--- OUTSIDE RECORDS SUMMARY | ~2019-11-04 | XMS | Encounter Summary ---
Demographics + + + | Address | [address] | | | [place] [address] | + + + | Home Phone [...] Providers + +------+ + | Care Head Bellhop Captain Name | Role | Phone | + [...] [place] | | | | | | [address] | (Fax) | | | | | [phone] | | | +--------+ + + + [...] Visit | | [address] [facility] | | | | | | [address] [facility] | | | | | | [address] | | | | | | | [...]
--- OUTSIDE RECORDS SUMMARY | ~2019-11-04 | XMS | Encounter Summary ---
Demographics + + + | Address | [address] | | | [place] [address] | + + + | Home Phone [...] Team Providers + +------+ + | Care Hearing Aid Assistant Name | Role | Phone | + +------+ + | Rahul Silva MD | PCP | | + +------+ + Encounter Details +--------+ + + + + | Date | Type | Department | Care Team | Description | +--------+ + + + + | 07/30/ | Orders Only | [facility] | Conversion | | | 2016 | | NEPRHOLOGY [place] | Transaction, | | | | | [address] | Provider Unknown | | | | | [address] [place], [place] | [phone] | | | | | [address] | (Fax) | | | | | [phone] | | | +--------+ + + + [...] | | | | | | [address] [facility] | | | | | | [address] | | | | | | | [...] + + + | RED CELL | 3.39 (A) | 4.3 - 5.7 10 | EXTERNAL | | | COUNT | | | LAB | | + + + + + + | Hgb | 9.7 (A) | 13.5 - 18.0 [...]
--- OUTSIDE RECORDS SUMMARY | ~2019-11-04 | XMS | Encounter Summary ---
Demographics + + + | Address | [address] | | | [place] [address] | + + + | Home Phone [...] Team Providers + +------+ + | Care Casting Chipper Name | Role | Phone | + [...] [address] | | | | | [place], [place] | [place], [place] | | | | | [address] | [address] | | | | | [phone] | [phone] | | | | | | | [...] 2020 | Visit | | [address] [facility] | | | | | | [address] [facility] | | | | | | [address] | | | | | | | [...]
--- OUTSIDE RECORDS SUMMARY | ~2019-11-04 | XMS | Encounter Summary ---
Demographics + + + | Address | [address] | | | [place] [address] | + + + | Home Phone [...] Team Providers + +------+ + | Care Cutting Machine Operator Name | Role | Phone | + +------+ + | Rahul Silva MD | PCP | | + +------+ + Encounter Details +--------+ + + + + | Date | Type | Department | Care Team | Description | +--------+ + + + + | 08/31/ | Orders Only | [facility] | Farrukh Acuna MD | | | 2013 | | NEPHROLOGY [place] | [address] [place] | | | | | [address] [place] | [address] [place], [place] | | | | | [address] [place], [place] | [address] | | | | | [address] | | | | | | [phone] | | | +--------+ + + + [...] 2019 | Visit | | [address] [facility] | | | | | | [address] [place] | | | | | | [address] | | | | | | | | +--------+---------+ + + + documented as of this encounter Procedures + +--------+ + + + | Procedure Name | Priori | Date/Time | Associated Diagnosis | Comments | | | ty | | | | + +--------+ + + + | EXTERNAL LAB: CBC | Routin | 08/31/2014 | | Results [...] + + + | RED CELL | 3.20 (A) | 4.3 - 5.7 10 | EXTERNAL | | | COUNT | | | LAB | | + + + + + + | Hgb | 9.8 (A) | 13.5 - 18.0 [...] | | | LAB | | | [place] | | | | | + + [...]
--- OUTSIDE RECORDS SUMMARY | ~2019-11-04 | XMS | Encounter Summary ---
Demographics + + + | Address | [address] | | | [place] [address] | + + + | Home Phone | | + + + | Preferred Language | Unknown | + + + | Marital Status | Single | + + + | Druze Affiliation | PRO | + + + [...] [place] | | | | | [address] | | + + + + + Care Team Providers + +------+ + | Care Building Architectural Designer Name | Role | Phone | + +------+ + PCP | Unavailable | + +------+ + Encounter Details +--------+ + + + + | Date | Type | Department | Care Team | Description | +--------+ + + + + | 02/26/ | Results | | Other, Faculty | | | 1993 | Only | | [phone] | | +--------+ + + + + [...] | + +---------+ + + | [facility] DEPARTMENT OF | | | | | RADIOLOGY | | | | + +---------+ + + documented in this encounter Visit Diagnoses Not on filedocumented in this encounter"
--- OUTSIDE RECORDS SUMMARY | ~2019-11-04 | XMS | Encounter Summary ---
Demographics + + + | Address | [address] | | | [place] [address] | + + + | Home Phone [...] Team Providers + +------+ + | Care Pipe Fitter Welding Name | Role | Phone | + +------+ + | Rahul Silva MD | PCP | | + +------+ + Encounter Details +--------+ + + + + | Date | Type | Department | Care Team | Description | +--------+ + + + + | 11/27/ | Orders Only | [facility] | Conversion | | | 2017 | | NEPHROLOGY [place] | Transaction, | | | | | [address] | Provider Unknown | | | | | [address] [place] | | | | | | [address] | (Fax) | | | | | [phone] | | | +--------+ + + + [...] | | | | | | [address] [facility] | | | | | | [address] | | | | | | | | +--------+---------+ + + + documented as of this encounter Procedures + +--------+ + + + | Procedure Name | Priori | Date/Time | Associated Diagnosis | Comments | | | ty | | | | + +--------+ + + + | CBC WITH MANUAL | Routin | 11/27/2018 | | Results for this | | DIFFERENTIAL | e | 4:05 PM | | procedure are in the | | | | PST | | results section. | + +--------+ + + + | IRON AND IRON | Routin | 11/27/2018 | | Results for this | | BINDING CAPACITY | e | 4:05 PM | | procedure are in the | | | | PST | | results section. | + +--------+ + + + | PROTEIN/CREATININE | Routin | 11/27/2018 | | Results for this | | RATIO, URINE | e | 4:05 PM | | procedure are in the | | | | PST | | results section. | + +--------+ + + + | PARATHYROID HORMONE, | Routin | 11/27/2018 | | Results for this | | INTACT | e | 4:05 PM | | [...] encounter Results Iron and Iron Binding Capacity (11/27/2018 4:05 PM PST) + +-------+ + + + | Component | Value | Ref Range | Performed | Pathologist | | | | | At | Signature | + +-------+ + + + | Iron | 69.29 | 37 - 160 | EXTERNAL | | | | | | LAB | | + +-------+ + + + | Iron | 23.0 | 20 - 55 | EXTERNAL | | | Saturation | | | LAB | | + +-------+ + + + | TIBC | 301 | 245 - 400 | EXTERNAL | [...] + +---------+ + + Protein/Creatinine Ratio, Urine (11/27/2018 4:05 PM PST) + + + + + + | Component | Value | Ref Range | Performed | Pathologist | | | | | At | Signature | + + + + + + | Protein/Cre | 2014.5 (A) | 0 - 150 | EXTERNAL [...] +---------+ + + CBC with Manual Differential (11/27/2018 4:05 PM PST) + + + + + + | Component | Value | Ref Range | Performed | Pathologist | | | | | At | Signature | + + + + + + | WBC | 7.6 | 4.5 - 11.0 10 | EXTERNAL [...] + + + + | Hematocrit, | 31.3 (A) | 41 - 50 % | EXTERNAL | | | POC | | | LAB | | + + + + + + | MCV | 88 | 81 - 99 fL | EXTERNAL [...] + +---------+ + + Parathyroid Hormone, Intact (11/27/2018 4:05 PM PST) + + + + + + | Component | Value | Ref Range | Performed | Pathologist | | | | | At | Signature | + + + + + + | PTH INTACT | 261.2 (A) | 15 - 65 [...] | | + +---------+ + + Ferritin (11/27/2018 4:05 PM PST) + +-------+ + + + | Component | Value | Ref Range | Performed | Pathologist | | | | | At | Signature | + +-------+ + + + | Ferritin, | 141.7 | 30 - 400 ng/mL | EXTERNAL [...] + +---------+ + + Renal Function Panel (11/27/2018 4:05 PM PST) + + + + + + | Component | Value | Ref Range | Performed | Pathologist | | | | | At | Signature | + + + + + + | Glucose, | 113 (A) | 70 - 100 mg/dL | EXTERNAL | | | Fasting | | | LAB | | + + + + + + | BUN | 54 (A) | 6 - 23 mg/dL | EXTERNAL | | | | | | LAB | | + + + + + + | Creatinine | 3.49 (A) | 0.70 - 1.18 | EXTERNAL [...] + + + | Anion Gap | 20.7 | 7 - 21 mmol/L | EXTERNAL | | | | | | LAB | | + + + + + + | eGFR if not | | | EXTERNAL | | | | | | LAB | | | [place] | | | | | + + + + + + | Phosphorus, | 6.0 (A) | 2.5 - 5.0 | EXTERNAL | | | Inorganic | | | LAB | | + + + + + + | BUN/Creatin | 15.5 | 6.0 - 28.6 | EXTERNAL | | | ine Ratio | | | LAB | | + + + + + + | Calcium | 8.0 (A) | 8.5 - 10.3 | EXTERNAL | | | | | mg/dL | LAB | | + + + + + + | Estimated | 17 (A) | 60 - 140 [...]
--- OUTSIDE RECORDS SUMMARY | ~2019-11-04 | XMS | Encounter Summary ---
Demographics + + + | Address | [address] | | | [place] [address] | + + + | Home Phone [...] Team Providers + +------+ + | Care Pocketed Spring Machine Operator Name | Role | Phone [...] + + | 09/28/ | Telephone | [facility] | Jason Sandy D, | Appointment | | 2018 | | VASCULAR SURGERY | RN | | | | | [address] | | | | | | [place] | | | | | | [address] | | | | | | [phone] | | | +--------+ + + + [...] | | | | | | [address] [place] | | | | | | [address] | | | | | | | | +--------+---------+ + + + documented as of this encounter Visit Diagnoses Not on filedocumented in this encounter"
--- OUTSIDE RECORDS SUMMARY | ~2019-11-04 | XMS | Encounter Summary ---
Demographics + + + | Address | [address] | | | [place] [address] | + + + | Home Phone [...] Providers + +------+ + | Care Administrative Associate Name | Role | Phone | [...] [address] | | | | | [place], [place] | [place], [place] | | | | | [address] | [address] | | | | | [phone] | [phone] | | | | | | | [...] | | | | | | [address] [facility] | | | | | | [address] | | | | | | | | +--------+---------+ + + + documented as of this encounter Procedures + +--------+ + + + | Procedure Name | Priori | Date/Time | Associated Diagnosis | Comments | | | ty | | | | + +--------+ + + + | CBC NO DIFFERENTIAL | Routin | 11/11/2016 | | Results for this | | | e | 4:26 AM | | procedure are in the | | | | PST | | results section. | + +--------+ + + + documented in this encounter Results CBC no Differential (11/11/2016 4:26 AM PST) + + + + + + | Component | Value | Ref Range | Performed | Pathologist | | | | | At | Signature | + + + + + + | WBC | 11.29 (H) | 3.80 - 11.00 | EXTERNAL | | | | | 10*3/uL | LAB | | + + + + + + | RED CELL | 3.11 (L) | 4.20 - 5.70 | EXTERNAL | | | COUNT | | 10*6/uL | LAB | | + + + + + + | Hgb | 9.4 (L) | 13.2 - 17.0 | EXTERNAL | | | | | g/dL | LAB | | + + + + + + | Hematocrit, | 28.2 (L) | 39.0 - 50.0 % | EXTERNAL | | | POC | | | LAB | | + + + + + + | MCV | 90.8 | 80.0 - 100.0 fL | EXTERNAL | | | | | | LAB | | + + + + + + | MCH | 30.3 | 27.0 - 34.0 pg | EXTERNAL | | | | | | LAB | | + + + + + + | MCHC | 33.4 | 32.0 - 35.5 | EXTERNAL | | | | | g/dL | LAB | | + + + + + + | RDW-CV | 48.6 | 37 - 53 fL | EXTERNAL | | | | | | LAB | | + + + + + + | Platelet | 195 | 150 - 400 | EXTERNAL | [...]
--- OUTSIDE RECORDS SUMMARY | ~2019-11-04 | XMS | Encounter Summary ---
Demographics + + + | Address | [address] | | | [place] [address] | + + + | Home Phone [...] Team Providers + +------+ + | Care Signal Apprentice Name | Role | Phone | [...] + + | 09/17/ | Documentati | [facility] | Oly Alvarenga | Labs Only ([facility] | | 2019 | on | NEPRHOLOGY [place] | V, Medical | 08/24/19) | | | | [address] | Attendant Child Activity | | | | | [address] [place], [place] | | | | | | [address] | | | | | | [phone] | | | +--------+ + + + [...] | | | | | | [address] [place], [place] | | | | | | [address] | | | | | | | [...] + + | REFERENCE LAB | [address] [facility] | [place] [address] | [phone] | | [facility] | | | | + + + + + | REFERENCE LAB | [address] [place] [address] | [place] [address] | [phone] | | [facility] | | | | + + + + + documented in this encounter Visit Diagnoses Not on filedocumented in this encounter"
--- OUTSIDE RECORDS SUMMARY | ~2019-11-04 | XMS | Encounter Summary ---
Demographics + + + | Address | [address] | | | [place] [address] | + + + | Home Phone [...] Team Providers + +------+ + | Care Archeology Faculty Member Name | Role | Phone | + +------+ + | Rahul Silva MD | PCP | | + +------+ + Encounter Details +--------+ + + + + | Date | Type | Department | Care Team | Description | +--------+ + + + + | 09/01/ | Orders Only | [facility] | Farrukh Acuna MD | | | 2013 | | NEPHROLOGY [place] | [address] [place] | | | | | [address] [place] | [address] [place], [place] | | | | | [address] [place], [place] | [address] | | | | | [address] | | | | | | [phone] | | | +--------+ + + + [...] 2019 | Visit | | [address] [facility] | | | | | | [address] [place] | | | | | | [address] | | | | | | | [...] | LAB | | | CITIZ[place] | | | | | + + [...]
--- OUTSIDE RECORDS SUMMARY | ~2019-11-04 | XMS | Encounter Summary ---
Demographics + + + | Address | [address] | | | [place] [address] | + + + | Home Phone [...] Team Providers + +------+ + | Care Dental Office Receptionist Name | Role | Phone | + +------+ + | Rahul Silva MD | PCP | | + +------+ + Encounter Details +--------+ + + + + | Date | Type | Department | Care Team | Description | +--------+ + + + + | 10/10/ | Orders Only | [facility] | Farrukh Acuna MD | | | 2013 | | NEPHROLOGY [place] | [address] [place] | | | | | [address] [place] | [address] [place], [place] | | | | | [address] [place], [place] | [address] | | | | | [address] | | | | | | [phone] | | | +--------+ + + + [...] 2019 | Visit | | [address] [facility] | | | | | | [address] | | | | | | [address] | | | | | | | [...] | | | LAB | | | [place] | | | | | + + [...]
--- OUTSIDE RECORDS SUMMARY | ~2019-11-04 | XMS | Encounter Summary ---
Demographics + + + | Address | [address] | | | [place] [address] | + + + | Home Phone [...] [place] | | | | | [address] | | + + + + + Care Team Providers + +------+ + | Care Yard Pipe Grader Name | Role | Phone | + +------+ + PCP | Unavailable | + +------+ + Encounter Details +--------+ + + + + | Date | Type | Department | Care Team | Description | +--------+ + + + + | 04/06/ | Procedure - | Digestive Health | Record, Operation | Operative Report | | 1997 | | [place] at [facility] [address] | | | | | Transcribed | Ruben Linares | | | | | | Mailcode: [place] | | | | | | [facility] Health and | | | | | | Healing, Building 2 | | | | | | [facility] [place] | | | | | | [address] | | | | | | [phone] | | | +--------+ + + + [...] + + | 04/06/1998 12:00 AM PDT [place] | | [facility] | | [address] [place], [place] [address] | | [facility] | | | | OPERATION RECORD | | | | Med Rec No.: [id number] Date: 04/06/98 | | | | Name: Con Kavon Morris | | | | | | ATTENDING SURGEON: | | Galo Arora M.D. | | Stevedoring Superintendent, | | Division of Plastic & | | Reconstructive Surgery | | DIALYSIS RN(S): | | Barry Fofana M.D. | | [...] | | Galo Arora M.D. | | Stevedoring Superintendent, | | Division of Plastic & | | Reconstructive Surgery | | WOJCIECH/pita | | | | P | | C: 05/12/98 lv | | cc: | | | + + documented in this encounter Visit Diagnoses Not on filedocumented in this encounter"
--- OUTSIDE RECORDS SUMMARY | ~2019-11-04 | XMS | Encounter Summary ---
Demographics + + + | Address | [address] | | | [place] [address] | + + + | Home Phone [...] Team Providers + +------+ + | Care Integration Project Manager Name | Role | Phone [...] N Young | | | | | [place], [place] | [place], [place] | | | | | [address] | [address] | | | | | [phone] | [phone] | | | | | | | [...] 2020 | Visit | | [address] [facility] | | | | | | [facility] | | | | | | [address] | | | | | | | [...] in this encounter Results External Lab: CBC (11/08/2016 4:37 AM PST) + + + [...] + + + | RED CELL | 2.58 (L) | 4.20 - 5.70 | EXTERNAL | | | COUNT | | 10*6/uL | LAB | | + + + + + + | Hgb | 7.8 (L) | 13.2 - 17.0 [...]
--- OUTSIDE RECORDS SUMMARY | ~2019-11-04 | XMS | Encounter Summary ---
Demographics + + + | Address | [address] | | | [place] [address] | + + + | Home Phone [...] Team Providers + +------+ + | Care Eyeletter Name | Role | Phone | + +------+ + | Rahul Silva MD | PCP | | + +------+ + Encounter Details +--------+ + + + + | Date | Type | Department | Care Team | Description | +--------+ + + + + | 10/27/ | Orders Only | [facility] | Conversion | | | 2016 | | NEPHROLOGY [place] | Transaction, | | | | | [address] | Provider Unknown | | | | | [address] [place] | | | | | | [address] | (Fax) | | | | | [phone] | | | +--------+ + + + [...] 2020 | Visit | | [address] [facility] | | | | | | [address] [facility] [place] | | | | | | [address] | | | | | | | [...] | + +---------+ + + + | LDL | 62 | mg/dL | EXTERNAL | | | Cholesterol | | | LAB | | | , | | | | | | Calculated, | | | | | | External | | | | | + +---------+ [...]
--- OUTSIDE RECORDS SUMMARY | ~2019-11-04 | XMS | Encounter Summary ---
Demographics + + + | Address | [address] | | | [place] [address] | + + + | Home Phone | | + + + | Preferred Language | Unknown | + + + | Marital Status | Single | + + + | Yarsani Affiliation | PRO | + + + [...] [place] | | | | | [address] | | + + + + + Care Team Providers + +------+ + | Care Merit System Director Name | Role | Phone | + +------+ + PCP | Unavailable | + +------+ + Encounter Details +--------+ + + + + | Date | Type | Department | Care Team | Description | +--------+ + + + + | 08/05/ | Transcribed | [facility] at | [place], Other | Transcribed | | 1995 | | [facility] [address] | | | | | | [address] | | | | | | Mailcode: [address] | | | | | | [place]onal[place]yas | | | | | | [place], | | | | | | [place] [address] | | | | | | [phone] | | | +--------+ + + + [...] as of this encounter Progress Notes Interface, Plastic Eye Technician In - 02/17/2007 3:02 AM PDT [address] [address] or August 05, 1996 RUBIA VALLES MD [address] [facility] [address] RE:PORFIRIO ZAVALA MR#:[id number] Valles: Mr. Porfirio Zavala returned to the [facility] Neurosurgery Clinic today for a followup visit. 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 Mr. Zavala has failed numerous femoral nerve blocks, sciatic nerve blocks, and spinal cord blocks, and was at one time enrolled in the [facility] Pain Clinic. Mr. Zavala's pain is currently [...] dictating for: Alina Moise M.D. Professor and Consulting It Architect, Division of Neurosurgery MARYANA/sajan cc: Seven Khan, Ph.D. Clinical Psychologist-Neuropsychologist documented in this encounter Plan of Treatment Not on filedocumented as of this encounter Visit Diagnoses Not on filedocumented in this encounter"
--- OUTSIDE RECORDS SUMMARY | ~2019-11-04 | XMS | Encounter Summary ---
Demographics + + + | Address | [address] | | | [place] [address] | + + + | Home Phone [...] Team Providers + +------+ + | Care Aircraft Engine Technician Name | Role | Phone | + +------+ + | Rahul Silva MD | PCP | | + +------+ + Encounter Details +--------+ + + + + | Date | Type | Department | Care Team | Description | +--------+ + + + + | 10/05/ | Orders Only | [facility] | Farrukh Acuna MD | Essential | | 2019 | | NEPHROLOGY [place] | [address] [place] | hypertension | | | | [address] | [address] [place], [place] | (Primary Dx); Iron | | | | [address] | [address] | deficiency; Anemia | | | | [place], [place] | | of chronic kidney | | | | [address] | | failure, stage 5 | | | | [phone] | | (HCC) | +--------+ + + [...] | | | | | | [address] [place], [place] | | | | | | [address] | | | | | | | [...]
--- OUTSIDE RECORDS SUMMARY | ~2019-11-04 | XMS | Encounter Summary ---
Demographics + + + | Address | [address] | | | [place] [address] | + + + | Home Phone [...] [place] | | | | | [address] | | + + + + + Care Team Providers + +------+ + | Care Employer Relations Representative Name | Role | Phone | + +------+ + PCP | Unavailable | + +------+ + Encounter Details +--------+ + + + + | Date | Type | Department | Care Team | Description | +--------+ + + + + | 02/26/ | Results | | Other, Faculty | | | 1993 | Only | | [phone] | | +--------+ + + + + [...] | | + +---------+ + + | [facility] DEPARTMENT OF | | | | | RADIOLOGY | | | | + +---------+ + + documented in this encounter Visit Diagnoses Not on filedocumented in this encounter"
--- OUTSIDE RECORDS SUMMARY | ~2019-11-04 | XMS | Encounter Summary ---
Demographics + + + | Address | [address] | | | [place] [address] | + + + | Home Phone [...] + +------+ + | Care Professor Of Social Work Name | Role | Phone | + [...] N Young | | | | | [place], [place] | [place], [place] | | | | | [address] | [address] | | | | | [phone] | | | | | | | [...] 2020 | Visit | | [address] [facility] | | | | | | [address] [facility] | | | | | | [address] | | | | | | | [...]
--- OUTSIDE RECORDS SUMMARY | ~2019-11-04 | XMS | Encounter Summary ---
Demographics + + + | Address | [address] | | | [place] [address] | + + + | Home Phone [...] Providers + +------+ + | Care Machine Tool Builder Name | Role | Phone | [...] N Young | | | | | [place], [place] | [place], [place] | | | | | [address] | [address] | | | | | [phone] | [phone] | | | | | | | [...] 2020 | Visit | | [address] [facility] | | | | | | [address] [facility] | | | | | | [address] | | | | | | | [...]
--- OUTSIDE RECORDS SUMMARY | ~2019-11-04 | XMS | Encounter Summary ---
Demographics + + + | Address | [address] | | | [place] [address] | + + + | Home Phone | | + + + | Preferred Language | Unknown | + + + | Marital Status | Single | + + + | Scientology Affiliation | PRO | + + + [...] [place] | | | | | [address] | | + + + + + Care Team Providers + +------+ + | Care Orthopedic Nurse Name | Role | Phone | + +------+ + PCP | Unavailable | + +------+ + Encounter Details +--------+ + + + + | Date | Type | Department | Care Team | Description | +--------+ + + + + | 04/06/ | Procedure - | Digestive Health | Record, Operation | Operative Report | | 1997 | | [place] at [facility] [address] | | | | | Transcribed | Ruben Linares | | | | | | Mailcode: [place] | | | | | | [facility] | | | | | | Healing, Building 2 | | | | | | [facility] [place] | | | | | | [address] | | | | | | [phone] | | | +--------+ + + + [...] + + | 04/06/1998 12:00 AM PDT [place] | | [facility] | | [address] [place], [place] [address] | | [facility] | | | | OPERATION RECORD | | | | Med Rec No.: [id number] Date: 04/06/98 | | | | Name: Con Kavon Morris | | | | | | ATTENDING SURGEON: | | Galo Arora M.D. | | Atg Architect, | | Division of Plastic & | | Reconstructive Surgery | | AUTO TECH(S): | | Barry Fofana M.D. | | [...] | | Galo Arora M.D. | | Atg Architect, | | Division of Plastic & | | Reconstructive Surgery | | WOJCIECH/pita | | | | P | | C: 05/12/98 lv | | cc: | | | + + documented in this encounter Visit Diagnoses Not on filedocumented in this encounter"
--- OUTSIDE RECORDS SUMMARY | ~2019-11-04 | XMS | Encounter Summary ---
Demographics + + + | Address | [address] | | | [place] [address] | + + + | Home Phone [...] Team Providers + +------+ + | Care Media Librarian Name | Role | Phone | + +------+ + | Rahul Silva MD | PCP | | + +------+ + Encounter Details +--------+ + + + + | Date | Type | Department | Care Team | Description | +--------+ + + + + | 06/15/ | Orders Only | [facility] | Conversion | | | 2019 | | NEPHROLOGY CONNIE | Transaction, | | | | | [address] | Provider Unknown | | | | | [address] [place] | | | | | | [address] | (Fax) | | | | | [phone] | | | +--------+ + + + [...] 2020 | Visit | | [address] [facility] | | | | | | [address] [place] | | | | | | [address] [...]
--- OUTSIDE RECORDS SUMMARY | ~2019-11-04 | XMS | Encounter Summary ---
Demographics + + + | Address | [address] | | | [place] [address] | + + + | Home Phone [...] Team Providers + +------+ + | Care Lighting Adviser Name | Role | Phone | [...] | | | | | | ([facility]ERLY [facility]) | | | | | | | [...] + + | 09/10/ | Surgery | [facility] | Brian Orosco MD | INSERTION AV FISTULA | | 2019 | [facility] | [address] | (Right BBF) | | | | OPERATING ROOM [address] | [place], [place] | | | | | [address] | [address] | | | | | [place], [place] | [phone] | | | | | [address] | | | | | | [phone] | | | +--------+---------+ + + + [...] shunt, please contact your ph ysician at [phone]. Discharge instructions for Diagnostic Imaging sedation patients [...] in a reclining position for the ri vt home, or have an adult in the [...] Anexsia, Lorcet, Lorcet HD, Lorcet Plus, Lortab, Fremont, Verdrocet, Vicodin, Vi codin ES, Vicodin HP, [...] information carefully each time. Talk to your well service floor worker regarding the use of this medicine in children. Special care may be needed. What side effects may I notice from receiving this medicine? Side effects that you should report to your doctor or health senior care assistant as soon as p ossible: allergic reactions [...] attention (report to your doctor or health senior care assistant if they continue or are bothersome): constipation [...] to an official disposal site. Contact the [facility] at [phone] or your [facility] to find a site. If you [...] this medicine? Tell your doctor or health senior care assistant if your pain does not go away, [...] cuts, scrapes, or blows. Date Last Reviewed: 12/01/201619997733-4995 The [employer]. [address] [place] [address], [place] [id number]. All righ ts reserved. This information is [...] | | | | | | (FORMERLY [facility]), Secondary | | | | | | | hyperparathyroidism | | | | | | | ([facility]ERLY [facility]) | | | | | | + [...] and bl ood clots prevention. Prescription for Fremont given and side effects were explained. Patient states that he also takes oxycodone at home; patient and his family were educated about taki ng oxycodone or Fremont only and not both. OTC Tylenol intake [...] | | [address] [facility] | | | | | | [address] [place], [place] | | | | | | [address] | | | | | | | [...] | | | than 15 ml/min ([facility]) | | + +--------+ + + + [...] Testing | 65 - 99 mg/dL | [facility] | | | POC | performed at [facility];[address] | | LABORATORY | | | | [address];[place], [place] | | | | | | [address] | | | | + + + + + + + + | Specimen | + + | | + + + + + + + | Performing | Address | City/State/Zipcode | Phone Number | | Organization | | | | + + + + + | [facility] | [address] | [place] [address] | [phone] | + + + + + POC [...] | | | POC | performed at [facility];[address] | | LABORATORY | | | | [address];[place] | | | | | | [address] | | | | + + + + + + + + | Specimen | + + | | + + + + + + + | Performing | Address | City/State/Zipcode | Phone Number | | Organization | | | | + + + + + | [facility] | [address] | [place] [address] | [phone] | + + + + + documented in this encounter Visit Diagnoses + + | Diagnosis | + + | CKD (chronic kidney disease) stage 5, GFR less than 15 ml/min ([facility]) Chronic kidney | | disease, Stage V | + + documented in this encounter Admitting Diagnoses + + | Diagnosis | + + | CKD (chronic kidney disease) stage 5, GFR less than 15 ml/min ([facility]) Chronic kidney | | disease, Stage V [...] One week or | | | longer, swvcaz-afo-[id number] use of | | | at least [...]
--- OUTSIDE RECORDS SUMMARY | ~2019-11-04 | XMS | Encounter Summary ---
Demographics + + + | Address | [address] | | | [place] [address] | + + + | Home Phone [...] Team Providers + +------+ + | Care Paper Baler Name | Role | Phone | + [...] N Young | | | | | [place], [place] | [place], [place] | | | | | [address] | [address] | | | | | [phone] | [phone] | | | | | | | [...] | Visit | | [address] [facility] | | | | | | [address] [facility] | | | | | | [address] | | | | | | | | +--------+---------+ + + + documented as of this encounter Procedures + +--------+ + + + | Procedure Name | Priori | Date/Time | Associated Diagnosis | Comments | | | ty | | | | + +--------+ + + + | LIPASE | Routin | 11/11/2016 | | Results for this | | | e | 4:26 AM | | procedure are in the | | | | PST | | results section. | + +--------+ + + + documented in this encounter Results Lipase (11/11/2016 4:26 AM PST) + +---------+ + + + | Component | Value | Ref Range | Performed | Pathologist | | | | | At | Signature | + +---------+ + + + | Lipase | 725 (H) | 73 - 393 U/L | [...]
--- OUTSIDE RECORDS SUMMARY | ~2019-11-04 | XMS | Encounter Summary ---
Demographics + + + | Address | [address] | | | [place] [address] | + + + | Home Phone [...] Providers + +------+ + | Care Sales Order Administrator Name | Role | Phone | + +------+ + | Rahul Silva MD | PCP | | + +------+ + Encounter Details +--------+ + + + + | Date | Type | Department | Care Team | Description | +--------+ + + + + | 05/27/ | Orders Only | [facility] | Conversion | | | 2018 | | NEPRHOLOGY [place] | Transaction, | | | | | [address] | Provider Unknown | | | | | [address] [place], [place] | [phone] | | | | | [address] | (Fax) | | | | | [phone] | | | +--------+ + + + [...] Visit | | [address] [facility] | | | | | | [address] [facility] | | | | | | [address] | | | | | | | [...]
--- OUTSIDE RECORDS SUMMARY | ~2019-11-04 | XMS | Encounter Summary ---
Demographics + + + | Address | [address] | | | [place] [address] | + + + | Home Phone [...] Team Providers + +------+ + | Care Sow Farm Barn Technician Name | Role | Phone | [...] + + | 10/06/ | Telephone | [facility] | Farrukh Acuna MD | Other | | 2019 | | NEPHROLOGY [place] | [address] [place] | | | | | [address] [place] | [address] [place], [place] | | | | | [address] [place], [place] | [address] | | | | | [address] | | | | | | [phone] | | | +--------+ + + + [...] [place] | | | | | | [address] | | | | | | (Fax) | | +--------+---------+ + + + documented as of this encounter Visit Diagnoses Not on filedocumented in this encounter"
--- OUTSIDE RECORDS SUMMARY | ~2019-11-04 | XMS | Encounter Summary ---
Demographics + + + | Address | [address] | | | [place] [address] | + + + | Home Phone | | + + + | Preferred Language | Unknown | + + + | Marital Status | | + + + | Gnosticist Affiliation | 1077 | + + + | Race | Unknown | + + + | Ethnic Group | Unknown | + + + Author + + + | Author | [facility] | | | and [place] | + + + | Organization | [facility] | | | [...] Providers + +------+ + | Care Digital Forensics Investigator Name | Role | Phone | + [...] | | | hip | [address] | | | | | | fracture, | [place] | | | | | | initial | [place], [place] | | | | | | encounter | [address] | | | | | | ([facility]) | Phone: | | | | | | Status post | [phone] | | | | | | above knee | Fax: | | | | | | amputation | [phone] | | | | | | of [...] | | | | | | | ([facility]) | | | | | | | | | | | | | | | | | +--------+--------+ + + + + Encounter Details +--------+ + + + + | Date | Type | Department | Care Team | Description | +--------+ + + + + | 08/03/ | Hospital | [facility] | Jose Andrade | Laceration of left | | 2016 - | Encounter | [facility] | MD Mehrdad [address] | ear, initial | | | | [address] [place] | [address] [place] | encounter (Primary | | 08/05/ | | [place] [address] | [place] [address] | Dx); Closed left hip | | 2016 | | [phone] | [phone] | fracture, initial | | | | | | encounter ([facility]); | | | | | Guillermo Atkins, | Fall, initial | | | | | DO [address] | encounter; Acute | | | | | [place] [address] [place], | pain; Hyperkalemia; | | | | | [place] [address] | CKD (chronic kidney | | | | | [phone] | disease), | | | | | [...] | | | | | | encounter ([facility]); | | | | | | PAOLO on CPAP; Status | | | | | | post fall; Status | | | | | | 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 DISCHARGE SUMMARY Pt. Name/Age/: Kavon Andujar 76 [...] mg by mouth nightly. aka: LIPITOR Cholecalciferol 22201 units Caps Take 50,000 Units by mouth [...] in 7-10 days Contact information: [address] [place] [id number] PENDING RESULTS: HOSPITAL COURSE: Please refer to [...] signed by: Petey Bolivar MD, 08/05/2016 13:07 [facility] Portions of this chart may have been created with [employer] voice recognition software. Occasi onal wrong-word or sound-alike substitutions may have occurred due to the inherent vanegas itations of voice recognition software. Please read the chart carefully and recognize, using context, where these substitutions have occurred documented in this encounter Discharge Instructions Instructions Maritza Devries RN - 08/05/2016Please call Dr. Tobar at [phone] for an y questions or concerns regarding [...] 0 | | | | (VITAMIN D-3) [address] | mouth Every 3 | | | [...] might be differ ent from the original. [facility] Hospitalist Progress Note Kavon Andujar is a [...] Clear Clear PH UA 5.0 5.0-8.0 Specific [place] 1.015 1.001-1.030 PROTEIN UA 100 mg/dL (A) [...] as outlined above. Sonu Michel 08/04/2016 11:33 [facility] Yuriy Farrell RRT - 08/04/2016 8:42 AM [...] 2019 | Visit | | [address] [facility] | | | | | | [address] [place], [place] | | | | | | [address] | | | | | | | [...] until | | | | | encounter ([facility]) | 08/04/2016 | | | | | Status post above | | | | | | knee amputation of | | | | | | left lower extremity | | | | | | ([facility]) | | + +------+--------+ + + | DME: Walker | DME | Routin | Closed left hip | Ordered: 08/05/2016 | | | | e | fracture, initial | | | | | | encounter ([facility]) | | | | | | Status post above | | | | | | knee amputation of | | | | | | left lower extremity | | | | | | ([facility]) | | + +------+--------+ + [...] | | POC | | | [facility] | | | | | | MEDICAL | | | | | | CENTER - | | | | | | LABORATORY | | + +---------+ + + + + + | Specimen | + + | Blood | + + + + + + + | Performing | Address | City/State/Unm [facility] | Phone Number | | Organization | | | | + + + + + | [facility] | [address] | [place] | [phone] | | [facility] | | [address] | | | - LABORATORY | | [...] (H) | 7 - 18 mg/dL | [facility] | | | | | | [facility] | | | | | | MEDICAL | | | | | | CENTER - | | | | | | LABORATORY | | + + + + + + | Creatinine | 1.80 (H) | 0.60 - 1.30 | [facility] | | | | | mg/dL | [facility] | | | | | | MEDICAL | | | | | | CENTER - | | | | | | LABORATORY | | + + + + + + | eGFR if not | 37 (L)Comment: | >=60 | TEACHEY | | | | GLOMERULAR FILTRATION | mL/min/1.73m2 | [facility] | | | [place]GUI[place] | RATE,ESTIMATED | | MEDICAL | | | | mL/min/1.81i0Zyju than | | CENTER - | | [...] + | [facility] | [address] | [place] | [phone] | | [facility] | | [address] | | | - LABORATORY | | [...] | | | Count | | | [facility] | | [...] [address] | [place] | [phone] | | [facility] | | [address] | | | - LABORATORY | | | | + + + + + Phosphorus (08/05/2016 6:44 AM PDT) + +-------+ + + + | Component | Value | Ref Range | Performed | Pathologist | | | | | At | Signature | + +-------+ + + + | Phosphorus | 4.2 | 2.5 - 4.6 mg/dL | [facility] | | | | | | ST. [...] + + | [facility] [facility] | [address] | [place] | [phone] | | [facility] | | [address] | | | - LABORATORY | | [...] [address] | [place] | [phone] | | [facility] | | [address] | | | - LABORATORY | | [...] [address] | [place] | [phone] | | [facility] | | [address] | | | - LABORATORY | | [...] + + | [facility] | [address] | [place] | [phone] | | [facility] | | [address] | | | - LABORATORY | | [...] + | [facility] | [address] | [place] | [phone] | | [facility] | | [address] | | | - LABORATORY | | [...] ST. | [address] | [place], [place] | [phone] | | [facility] | | [address] | | | - LABORATORY | | [...] + | [facility] | [address] | [place] | [phone] | | [facility] | | [address] | | | - LABORATORY | | [...] [address] | [place] | [phone] | | [facility] | | [address] | | | - LABORATORY | | [...] mL/min/1.73m2 | [facility] | | | ANGUI[place]AN | RATE,ESTIMATED | | MEDICAL | | | | mL/min/1.09m2Eedr than | | CENTER - | | [...] [address] | [place] | [phone] | | [facility] | | [address] | | | - LABORATORY | | | | + + + + + Urinalysis with Microscopic with Culture if Indicated (08/03/2016 11:54 PM PDT) + + + + + + | Component | Value | Ref Range | Performed | Pathologist | | | | | At | Signature | + + + + + + | Color | Yellow | Light Yellow, | [facility] | | | | | Yellow, Straw | [facility] [...] - 1.030 | [facility] | | | [place] | | | [facility] | | [...] + + + + + | WBC UA | 0-2 | 0 - 2 /HPF | [facility] | | | | | | [facility] | | | | | | MEDICAL | | | | | | CENTER - | | | | | | LABORATORY | | + + + + + + | RBC UA | 0-2 | 0 - 2 /HPF | [facility] | | | | | | [facility] | | | | | | MEDICAL | | | | | | CENTER - | | | | | | LABORATORY | | + + + + + + | SQUAMOUS | 0-2 | 0 - 2 /LPF | [facility] | | | EPITHELIAL | | | [facility] | | | UA | | | MEDICAL | | | | | | CENTER - | | | | | | LABORATORY | | + + + + + + | BACTERIA UA | Negative | Negative /HPF | [facility] | | | | | | [facility] | | | | | | MEDICAL | | | | | | CENTER - | | | | | | LABORATORY | | + + + + + + | MUCUS UA | Present (A) | Negative /LPF | [facility] | | | | | | [facility] | | | | | | MEDICAL | | | | | | CENTER - | | | | | | LABORATORY | | + + + + + + | URINE | Urine Culture Not | | [facility] | | | COMMENT | Indicated | | [facility] | | | [...] [address] | [place] | [phone] | | [facility] | | [address] | | | - LABORATORY | | [...] | | | | AYAH RON MD ([id number]) | | | | | | on [...] (H) | 4.0 - 11.0 K/uL | [facility] | | | | | [...] | | | Eosinophils | | | [facility] | | [...] | | Lymphocytes | | K/uL | [facility] | | | | | | MEDICAL | | | | | | CENTER - | | | | | | LABORATORY | | + + + + + + | Absolute | 0.90 | 0.00 - 1.00 | [facility] | | | Monocytes | | K/uL | [facility] | [...] + | [facility] | [address] | [place] | [phone] | | [facility] | | [address] | | | - LABORATORY | | [address] | [place] | [phone] | | [facility] | | [address] | | | - LABORATORY | | [...] [address] | [place] | [phone] | | [facility] | | [address] | | | - LABORATORY | | [address] | [place] | [phone] | | [facility] | | [address] | | | - LABORATORY | | [...] ST. | [address] | [place] | [phone] | | [facility] | | [address] | | | - LABORATORY | | [...] not | 32 (L)Comment: | >=60 | [facility] | | | | GLOMERULAR FILTRATION | mL/min/1.73m2 | [facility] | | | ANGUI[place]AN | RATE,ESTIMATED | | MEDICAL | | | | mL/min/1.02g5Nrik than | | CENTER - | | [...] + | [facility] | [address] | [place] | [phone] | | [facility] | | [address] | | | - LABORATORY | | [...] | | | | | | | 0056-4630 Use NIGHT DOSE for | | | | | | | doses scheduled: HS, 3AM, | | | | | | | Nighttime 5972-7855, | | | | | | + [...] | +---+---+ + +-------+ +---------+---+ + | lswvdls-kmqxouctkm-htmznooqh | Given | 08/03/20 | 0.5 mLs [...]
--- OUTSIDE RECORDS SUMMARY | ~2019-11-04 | XMS | Encounter Summary ---
Demographics + + + | Address | [address] | | | [place] [address] | + + + | Home Phone [...] [facility] | | | [...] Team Providers + +------+ + | Care Assembly Line Supervisor Name | Role | Phone | [...] | Transaction, | | | | | [place], [place] | Provider Unknown | | | | | [address] | | | | | | [phone] | | | +--------+ + + + [...] 2020 | Visit | | [address] [facility] | | | | | | [address] [place] | | | | | | [address] | | | | | | | [...]
--- OUTSIDE RECORDS SUMMARY | ~2019-11-04 | XMS | Encounter Summary ---
Demographics + + + | Address | [address] | | | [place] [address] | + + + | Home Phone [...] Team Providers + +------+ + | Care Interactive Media Specialist Name | Role | Phone | [...] [address] [place] | | | | | [place], [place] | [place], [place] | | | | | [address] | [address] | | | | | [phone] | [phone] | | | | | | | [...] | | | | | | [address] [facility] | | | | | | [address] | | | | | | | [...]
--- OUTSIDE RECORDS SUMMARY | ~2019-11-04 | XMS | Encounter Summary ---
Demographics + + + | Address | [address] | | | [place] [address] | + + + | Home Phone [...] Team Providers + +------+ + | Care Dressage Instructor Name | Role | Phone | + +------+ + | Rahul Silva MD | PCP | | + +------+ + Encounter Details +--------+ + + + + | Date | Type | Department | Care Team | Description | +--------+ + + + + | 07/18/ | Orders Only | [facility] | Conversion | | | 2015 | | NEPHROLOGY [place] | Transaction, | | | | | [address] [facility] | Provider Unknown | | | | | [place] | [phone] | | | | | [address] | | | | | | [phone] | | | +--------+ + + + [...] 2020 | Visit | | [address] [facility] [address] | | | | | | [address] [place], [place] | | | | | | [address] | | | | | | | [...] - 1.030 | EXTERNAL | | | [place] | | | LAB | | + [...] | | | LAB | | | [place] | | | | | + + [...]
--- OUTSIDE RECORDS SUMMARY | ~2019-11-04 | XMS | Encounter Summary ---
Demographics + + + | Address | [address] | | | [place] [address] | + + + | Home Phone [...] Team Providers + +------+ + | Care Spanish Linguist Name | Role | Phone | + +------+ + | Rahul Silva MD | PCP | | + +------+ + Encounter Details +--------+ + + + + | Date | Type | Department | Care Team | Description | +--------+ + + + + | 07/20/ | Orders Only | [facility] | Farrukh Acuna MD | Stage 4 chronic | | 2019 | | NEPHROLOGY [place] | [address] [place] | kidney disease (HCC) | | | | [address] | [address] [place], [place] | (Primary Dx); | | | | [address] | [address] | Persistent | | | | [place], [place] | | proteinuria; | | | | [address] | | Secondary | | | | [phone] | | hyperparathyroidism | | | | [...] 2020 | Visit | | [address] [facility] | | | | | | [address] [place] | | | | | | [address] | | | | | | | [...]
--- OUTSIDE RECORDS SUMMARY | ~2019-11-04 | XMS | Encounter Summary ---
Demographics + + + | Address | [address] | | | [place] [address] | + + + | Home Phone [...] + +------+ + | Care Head Of Mathematics Name | Role | Phone | + +------+ + | Rahul Silva MD | PCP | | + +------+ + Encounter Details +--------+---------+ + + + | Date | Type | Department | Care Team | Description | +--------+---------+ + + + | 10/04/ | Office | [facility] | Farrukh Acuna MD | CKD (chronic kidney | | 2019 | Visit | NEPHROLOGY [place] | [address] [place] | disease) stage 5, | | | | [address] | [address] [place], [place] | GFR less than 15 | | | | [address] | [address] | ml/min (HCC) | | | | [place], [place] | | (Primary Dx); Anemia | | | | [address] | | of chronic kidney | | | | [phone] | | failure, stage 5 | | | | | | (HCC); Essential | | | | | | hypertension; Iron | | | | | | deficiency; | | | | | | Secondary | | | | | | hyperparathyroidism | | | | | | ([facility]); 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 He was admitted to [facility] for 3 nights in July 2016 for [...] 19.5 (A) 05/27/2019 LABPROT 2,445.6 (A) 03/01/2019 [id number] 10/08/2018 Assessment: Mr. Andujar is a 78 y.o. male patient with stage IV CKD on a background of diabetes & hypert ension and recent hospitalization for C-diff and hehydration. The most likely pathology here is that of diabetic nephropathy +/- hypertensive nephrosclerosis/arteriolosclerosis. He was hospitalized in 10/2016 with severe pneumonia, severe ZEKE; needed MINILAB OPERATOR for ~5 weeks b efore renal [...] Also: I see no need for acute MINILAB OPERATOR. I see no need to send [...] 12/06/ | Office | Nephrology | Farrukh cAuna MD | | | 2019 | Visit | | [address] [facility] | | | | | | [address] [place], [place] | | | | | | [address] | | | | | | | | +--------+---------+ + + + documented as of this encounter Visit Diagnoses + + | Diagnosis | + + | CKD (chronic kidney disease) stage 5, GFR less than 15 ml/min ([facility]) - Primary Chronic | | kidney [...]
--- OUTSIDE RECORDS SUMMARY | ~2019-11-04 | XMS | Encounter Summary ---
Demographics + + + | Address | [address] | | | [place] [address] | + + + | Home Phone [...] Team Providers + +------+ + | Care Screen Tacker Name | Role | Phone | [...] + + | 09/10/ | Anesthesia | [facility] | Venkata Carroll | | | 2019 | [facility] | [address] | | | | | OPERATING ROOM [address] | | | | | [address] | [place] [address] | | | | | [place], [place] | [phone] | | | | | [address] | | | | | | [phone] | | | +--------+ + + + + Anesthesia Record + + + + + | Procedure Name | Responsible | Anesthesia Start | Anesthesia Stop Time | | | Anesthesiologist | Time | | + + + + + | INSERTION AV FISTULA | Venkata Carroll, | 09/10/19 1307 | 09/10/19 1401 | | (Right BBF) (Right | ECHO TECHNOLOGIST | | | | Arm Upper) | [...] 09/10/19 1403 by | | | | arm | Sari Liang | | | | | BAN Renee | | +--------+ + + + | Periph | 09/10/19; 1227; Left; Forearm; | 09/10/19 1227 by | 09/10/19 1600 by | | amor | gavt-tad-ucynyd catheter system; | Trinidad Ramírez | Leana [...] 2020 | Visit | | [address] [facility] | | | | | | [address] [place], [place] | | | | | | [address] | | | | | | | [...] g 2 g, Intravenous, | | 19 1:08 | | | | | Administer over 30 Minutes, Prior | | PM PDT | | | | | to [...] Intravenous, PRN, Starting Fri | | 19 1:15 | | | | | 09/10/19 at 1310, Anesthesia | | PM PDT | | | | | Intra-op | | | | | | + +-------+ +--------+---+---+ +-------+ +--------+---+---+ | Given | 09/10/20 | 25 mcg | | | | | 19 1:10 | | | | | | PM PDT | | | | +-------+ +--------+---+---+ +---+---+ | | | +---+---+ + +-------+ +--------+---+---+ | heparin 1,000 units/mL | Given | 09/10/20 | 3,000 | | | | injection Intravenous, PRN, | | 19 1:40 | Units | | | | Starting 09/10/19 at 1340, | | PM PDT | | | | | Anesthesia Intra-op | | | | | | + +-------+ +--------+---+---+ +---+---+ | | | +---+---+ + +-------+ +-------+---+---+ | lidocaine (PF) 2% injection | Given | 09/10/20 | 80 mg | | | | Intravenous, PRN, Starting Fri | | 19 1:15 | | | | | 09/10/19 at 1315, Anesthesia | | PM PDT | | | | | Intra-op | | | | | | + +-------+ +-------+---+---+ +---+---+ | | | +---+---+ + +-------+ +-------+---+---+ | propofol (DIPRIVAN) injection | Given | 09/10/20 | 60 mg | | | | Intravenous, PRN, Starting Fri | | 19 1:15 | | | | | 09/10/19 at 1315, Anesthesia | | PM PDT | | | | | Intra-op | | | | | | + +-------+ +-------+---+---+ +---+---+ | | | +---+---+ + + + + +-------+---+ | propofol infusion (DIPRIVAN) 10 | Rate/Dos | 09/10/20 | 50 | 24.2 | | | mg/mL infusion Intravenous, | e Change | 19 1:53 | mcg/kg/m | mL/hr | | | CONTINUOUS PRN, Starting Fri | | PM PDT | in | | | | 09/10/19 at 1315, Anesthesia | | | | | | | Intra-op | | | | | | + + + + +-------+---+ + + + +-------+---+ | Rate/Dose Change | 09/10/20 | 65 | 31.5 | | | | 19 1:51 | mcg/kg/m | mL/hr | | | | PM PDT | in | | | + + + +-------+---+ | Rate/Dose Change | 09/10/20 | 70 | 33.9 | | | | 19 1:44 | mcg/kg/m | mL/hr | | | | PM PDT | in | | | + [...]
--- OUTSIDE RECORDS SUMMARY | ~2019-11-04 | XMS | Encounter Summary ---
Demographics + + + | Address | [address] | | | [place] [address] | + + + | Home Phone [...] Team Providers + +------+ + | Care Boxer Operator Name | Role | Phone | + +------+ + | Rahul Silva MD | PCP | | + +------+ + Encounter Details +--------+ + + + + | Date | Type | Department | Care Team | Description | +--------+ + + + + | 02/12/ | Orders Only | [facility] | Conversion | | | 2018 | | NEPHROLOGY [place] | Transaction, | | | | | [address] | Provider Unknown | | | | | [address] [place] | | | | | | [address] | (Fax) | | | | | [phone] | | | +--------+ + + + [...] | | | | | | [address] [facility] | | | | | | [address] | | | | | | | [...]
--- OUTSIDE RECORDS SUMMARY | ~2019-11-04 | XMS | Encounter Summary ---
Demographics + + + | Address | [address] | | | [place] [address] | + + + | Home Phone [...] Team Providers + +------+ + | Care Upscale Security Officer Name | Role | Phone | [...] [address] | | | | | [place], [place] | [place], [place] | | | | | [address] | [address] | | | | | [phone] | [phone] | | | | | | | [...] 2020 | Visit | | [address] [facility] | | | | | | [address] [facility] | | | | | | [address] | | | | | | | [...]
--- OUTSIDE RECORDS SUMMARY | ~2019-11-04 | XMS | Encounter Summary ---
Demographics + + + | Address | [address] | | | [place] [address] | + + + | Home Phone [...] Author | [facility] | | | [...] Team Providers + +------+ + | Care Food Service Aide Name | Role | Phone | [...] [address] Young | | | | | [place], [place] | [place], [place] | | | | | [address] | [address] | | | | | [phone] | [phone] | | | | | | | [...] 2020 | Visit | | [address] [facility] | | | | | | [address] [facility] | | | | | | [address] | | | | | | | [...]
--- OUTSIDE RECORDS SUMMARY | ~2019-11-04 | XMS | Clinical Summary ---
Demographics + + + | Address | [address] | | | [place] [address] | + + + | Home Phone | | + + + | Preferred Language | Unknown | + + + | Marital Status | | + + + | Alevism Affiliation | 1077 | + + + | Race | Unknown | + + + | Ethnic Group | Unknown | + + + Author + + + | Author | [facility] (Historical as of | | | 07-17-19) | + + + | Organization | [facility] (Historical as of | | | 07-17-19) [...] Providers + +------+ + | Care Power Truck Driver Name | Role | Phone | [...] | | + + + +---------+------+------+-------+ | BRIAN CALABRESE | 25 Units nightly. | | | 10/2 | | Activ | | 100 UNIT/ML | | | | 1/20 | | e | | injection | | | | 16 | | | + + + +---------+------+------+-------+ | | | | | 08/0 | | Activ | | ipratropium-albutero | | | | 03/20 | | e | | l (DUO-NEB) 0.5-2.5 | | | | 16 | | | | mg/3mL | | | | | | | + + + +---------+------+------+-------+ | LINZESS 145 MCG | Take 145 mcg by | | | 09/01 | | Activ | | capsule | mouth every morning | | | 04/19 | | e | | | before breakfast. | | | 16 | | | + + + +---------+------+------+-------+ | Blood Pressure | Use as directed for | 1 each | 0 | 02/1 | | Activ | | KITIndications: | [...] capsule by | 90 | 3 | 09/2 | | Activ | | (ROCALTROL) 0.25 MCG | mouth daily. | capsule | | 4/20 | | e | | capsule | | | | 18 | | | + + + +---------+------+------+-------+ | albuterol | Inhale 2 puffs into | | | | | Activ | | (PROVENTIL | the lungs every 4 | | | | | e | | HFA;VENTOLIN HFA) | (four) hours as | | | | | | | 108 (90 Base) | needed for Wheezing. | | | | | | | MCG/ACT inhaler | | | | | | | + + + +---------+------+------+-------+ | predniSONE | Take 20 mg by mouth | | | | | Activ | | (DELTASONE) 20 MG | daily with | | | | | e | | tablet | breakfast. | | | | | | + + + +---------+------+------+-------+ | torsemide | Take 2 tablets by | 180 | 3 | 04/0 | | Activ | | (DEMADEX) 20 MG | mouth daily. | tablet | | 8/20 | | e | | tabletIndications: | | | | 19 | | | | Edema of right [...] bicarbonate | Take 1 tablet by | 1080 | 3 | 05/3 | | Activ | | 650 MG | mouth 4 (four) times | tablet | | 0/20 | | e | | tabletIndications: | daily. | | | 19 | | | | Anemia of chronic | | | | | | | | renal failure, stage | | | | | | | | 4 (severe) (HCC), | | | | | | | | Family history of | | | | | | | | hypertension | | | | | | | + + + +---------+------+------+-------+ | darbepoetin amarjit | Inject 1 mL into the | 1 mL | 6 | 07/0 | | Activ | | (ARANESP) 60 MCG/ML | skin every 30 | | | / | | e | | injectionIndications | (thirty) days. | | | 19 | | | | : Anemia of chronic | | | | | | | | renal failure, stage | | | | | | | | 4 (severe) ([facility]), | | | | | | | | Iron deficiency | | | | | | [...] Last Assessment & Plan: Controlled on current [id number] yr | | old male with COPD, [...] deficiency | 06/06/2014 | + + + Immunizations +------+ + + | Name | [...] + | Blood Pressure | 120/42 | 05/31/2019 11:52 AM PDT | + + + + | Pulse | 66 | 05/31/2019 11:52 AM PDT | + + + + | Temperature | 36.7 C (98.1 F) | 05/25/2018 1:29 PM PDT | + + + + | Respiratory Rate | 18 | 10/03/2016 3:20 PM PDT | + + + + | Oxygen Saturation | 93% | 05/31/2019 11:52 AM PDT | + + + + | Inhaled Oxygen | - | - | | Concentration | | | + + + + | Weight | 84.8 kg (187 lb) | 05/31/2019 11:52 AM PDT | + + + + | Height | 172.7 cm (5' 8") | 05/31/2019 11:52 AM PDT | + + + + | Body Mass Index | 28.43 | 05/31/2019 11:52 AM PDT | + + + + Plan [...] | 07/14/2018, 10/27/2017 | | | | 8 | | | + + + + + | Vaccine: Influenza | | | | | (#1) | 9 | | | + + + + + | Vaccine: | | 08/03/2016 | | | Dtap/Tdap/Td (2 - | 6 | | | | Td) | | | | + + + + + Results Not on filefrom Last 3 Months Insurance + +--------+ +------+-------+ + | Payer | Benefi | Subscriber | Type | Phone | Address | | | t Plan | ID | | | | | | / | | | | | | | Group | | | | | + +--------+ +------+-------+ + | MEDICARE | MEDICA | [id number] | | | [address] | | | RE | | | | [place], [place] [address] | | | IP-OP | | | | | + +--------+ +------+-------+ + | MEDICAID | E[place]ER | [id number] | | | [address] | | | N | | | | [place], [place] | | | [place] | | | | [address] | | | PRODUCT DEVELOPMENT SPECIALIST | | | | | + +--------+ +------+-------+ + + +--------+ [...] [birth year] | Home: | [address] | | | al/Fam | | 1940 | [phone] | [place], [place] | | | [place] | | | [phone] | [address] | + +--------+ +--------+ + +
--- OUTSIDE RECORDS SUMMARY | ~2019-11-04 | XMS | Encounter Summary ---
Demographics + + + | Address | [address] | | | [place] [address] | + + + | Home Phone [...] Team Providers + +------+ + | Care Cage Operator Name | Role | Phone | + +------+ + | Rahul Silva MD | PCP | | + +------+ + Encounter Details +--------+ + + + + | Date | Type | Department | Care Team | Description | +--------+ + + + + | 08/19/ | Orders Only | [facility] | Farrukh Acuna MD | | | 2018 | | NEPHROLOGY [place] | [address] [place] | | | | | [address] [place] | [address] [place], [place] | | | | | [address] [place], [place] | [address] | | | | | [address] | | | | | | [phone] | | | +--------+ + + + [...] [place] | | | | | | [address] | | | | | | | [...]
--- OUTSIDE RECORDS SUMMARY | ~2019-11-04 | XMS | Encounter Summary ---
Demographics + + + | Address | [address] | | | [place] [address] | + + + | Home Phone [...] Team Providers + +------+ + | Care Capacity Planner Name | Role | Phone | + +------+ + | Rahul Silva MD | PCP | | + +------+ + Encounter Details +--------+ + + + + | Date | Type | Department | Care Team | Description | +--------+ + + + + | 01/23/ | Orders Only | [facility] | Collin Mirza, | | | 2015 | | NEPHROLOGY [place] | [address] | | | | | [address] [place] | [address] | | | | | [address] [place], [place] | [place] | | | | | [address] | [address] | | | | | [phone] | [phone] | | | | | | | [...] | | | | | | [address] [place], [place] | | | | | | [address] | | | | | | | [...] | | | LAB | | | JORDANIAN | | | | | + + [...]
--- OUTSIDE RECORDS SUMMARY | ~2019-11-04 | XMS | Encounter Summary ---
Demographics + + + | Address | [address] | | | [place] [address] | + + + | Home Phone [...] Team Providers + +------+ + | Care Hydrogeology Professor Name | Role | Phone | + +------+ + | Rahul Silva MD | PCP | | + +------+ + Encounter Details +--------+ + + + + | Date | Type | Department | Care Team | Description | +--------+ + + + + | 10/03/ | Orders Only | [facility] | Conversion | | | 2015 | | NEPRHOLOGY [place] | Transaction, | | | | | [address] | Provider Unknown | | | | | [address] [place], [place] | [phone] | | | | | [address] | (Fax) | | | | | [phone] | | | +--------+ + + + [...] | | | | [address] [facility] | | | | | | [address] | | | | | | | [...] | | | LAB | | | PUERTO RICAN | | | | | + + [...]
--- OUTSIDE RECORDS SUMMARY | ~2019-11-04 | XMS | Encounter Summary ---
Demographics + + + | Address | [address] | | | [place] [address] | + + + | Home Phone [...] Providers + +------+ + | Care Pipe Inspector Name | Role | Phone | + +------+ + | Rahul Silva MD | PCP | | + +------+ + Encounter Details +--------+ + + + + | Date | Type | Department | Care Team | Description | +--------+ + + + + | 11/09/ | Orders Only | [facility] | Olman Toussaint MD | | | 2016 | | [address] | [address] | | | | | [place], [place] | [place], [place] | | | | | [address] | [address] | | | | | [phone] | [phone] | | | | | | | [...] | | | | | [address] [facility] | | | | | | [address] | | | | | | | [...]
--- OUTSIDE RECORDS SUMMARY | ~2019-11-04 | XMS | Encounter Summary ---
Demographics + + + | Address | [address] | | | [place] [address] | + + + | Home Phone [...] [place] | | | | | [address] | | + + + + + Care Team Providers + +------+ + | Care Anime Designer Name | Role | Phone | [...] [id number] | | | | | | [place], [place] | | | | | | [address] | | | | | | [phone] | | | +--------+ + + + [...] | + + + + + | [facility] | [address] | [place] [address] | | | PATHOLOGY | [address] [...] | + + + + + | [facility] | [address] | [place] [address] | | | PATHOLOGY | [address] | | | + + + + + documented in this encounter Visit Diagnoses Not on filedocumented in this encounter"
--- OUTSIDE RECORDS SUMMARY | ~2019-11-04 | XMS | Encounter Summary ---
Demographics + + + | Address | [address] | | | [place] [address] | + + + | Home Phone [...] Team Providers + +------+ + | Care Product Architect Name | Role | Phone | [...] [address] | | | | | [place], [place] | [place], [place] | | | | | [address] | [address] | | | | | [phone] | [phone] | | | | | | | [...] | | | [address] [facility] | | | | | | [address] | | | | | | | [...]
--- OUTSIDE RECORDS SUMMARY | ~2019-11-04 | XMS | Encounter Summary ---
Demographics + + + | Address | [address] | | | [place] [address] | + + + | Home Phone [...] Author + + + | Author | [facility] | + + + | Organization | [facility] | + + + | Address | Unknown | + + + | Phone | Unavailable | + + + Support + + + + + | Name | Relationship | Address | Phone | + + + + + | Darci Zavala | [address] | [place] | | | | | [address] | | + + + + + Care Team Providers + +------+ + | Care Certified Welder Name | Role | Phone | + +------+ + PCP | Unavailable | + +------+ + Encounter Details +--------+ + + + + | Date | Type | Department | Care Team | Description | +--------+ + + + + | 09/09/ | Transcribed | Allergy Clinic at | Oliva, Other | Transcribed | | 1995 | | [facility] [address] | | | | | | [address] | | | | | | Mailcode: [id number] | | | | | | [place] | | | | | | [place], | | | | | | [place] [address] | | | | | | [phone] | | | +--------+ + + + [...] as of this encounter Progress Notes Interface, Processing Lead In - 02/14/2007 3:12 AM PDT [address] [address] or September 09, 1996 Nestor VALLES MD [address] [place] [address] RE: PORFIRIO ZAVALA MR#: [id number] Valles: Your patient, Porfirio Zavala, was seen for follow up today in the Neurosurgery Clinic at [facility]. 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 Following our initial evaluation, we recommended [...] Fellow, Neurosurgery Alina Moise M.D. Professor and Diversity Intern, Division of Neurosurgery HECTOR/hiro documented in this encounter Plan of Treatment Not on filedocumented as of this encounter Visit Diagnoses Not on filedocumented in this encounter"
--- OUTSIDE RECORDS SUMMARY | ~2019-11-04 | XMS | Encounter Summary ---
Demographics + + + | Address | [address] | | | [place] [address] | + + + | Home Phone [...] Providers + +------+ + | Care Hand Buffer Name | Role | Phone | + +------+ + | Rahul Silva MD | PCP | | + +------+ + Encounter Details +--------+ + + + + | Date | Type | Department | Care Team | Description | +--------+ + + + + | 06/12/ | Orders Only | [facility] | Farrukh Acuna MD | | | 2017 | | NEPHROLOGY [place] | [address] [place] | | | | | [address] [place] | [address] [place], [place] | | | | | [address] [place], [place] | [address] | | | | | [address] | | | | | | [phone] | | | +--------+ + + + [...] | Visit | | [address] [facility] | | | | | | [address] [place] | | | | | | [address] | | | | | | | [...]
--- OUTSIDE RECORDS SUMMARY | ~2019-11-04 | XMS | Encounter Summary ---
Demographics + + + | Address | [address] | | | [place] [address] | + + + | Home Phone [...] [place] | | | | | [address] | | + + + + + Care Team Providers + +------+ + | Care Medical Driver Name | Role | Phone | + +------+ + PCP | Unavailable | + +------+ + Encounter Details +--------+ + + + + | Date | Type | Department | Care Team | Description | +--------+ + + + + | 03/30/ | Results | | Other, Faculty | | | 1992 | Only | | [phone] | | +--------+ + + + + [...] | | + +---------+ + + | [facility] DEPARTMENT OF | | | [...] | | + +---------+ + + | [facility] DEPARTMENT OF | | | [...] | | | | | | | [id number] AND | | | | | | [...] | | + +---------+ + + | [facility] DEPARTMENT OF | | | [...] | | + +---------+ + + | [facility] DEPARTMENT OF | | | [...] | | | | | | | [id number] | | | | | | CHEST: [...] | | | | | | | [id number] | | | | | | CHEST: [...] | | | | | | | [id number], | | | | | | PORTABLE, [...] | | + +---------+ + + | [facility] DEPARTMENT OF | | | [...] | | | | | | | [id number], | | | | | | PORTABLE, [...] and | | | | | | Delta Ganzcatheter are | | | | | [...] | | + +---------+ + + | [facility] DEPARTMENT OF | | | [...] | | + +---------+ + + | [facility] DEPARTMENT OF | | | [...] | | | | | | a Delta-Lupe catheter | | | | | | [...] | | | | placement of a Delta-Lupe | | | | | | catheter. CHEST, | | | | | | SINGLE AP PORTABLE: | | | | | | 03-31-93 AT 1000 HOURS | | | | | | FINDINGS: Since the | | | | | | prior study, the | | | | | | Delta-Lupe catheter has | | | | | [...] IMPRESSION: | | | | | | Delta-Lupe catheter | | | | | | [...] The | | | | | | Delta-Lupe catheter | | | | | | [...] and | | | | | | Delta-Lupe catheter | | | | | | [...] endotracheal | | | | | | tube,Delta-Lupe catheter | | | | | | [...] | | | | | | a Delta-Lupe catheter | | | | | | [...] | | | | placement of a Delta-Lupe | | | | | | catheter. CHEST, | | | | | | SINGLE AP PORTABLE: | | | | | | 03-31-93 AT 1000 HOURS | | | | | | FINDINGS: Since the | | | | | | prior study, the | | | | | | Delta-Lupe catheter has | | | | | [...] IMPRESSION: | | | | | | Delta-Lupe catheter | | | | | | [...] The | | | | | | Delta-Lupe catheter | | | | | | [...] and | | | | | | Delta-Lupe catheter | | | | | | [...] endotracheal | | | | | | tube,Delta-Lupe catheter | | | | | | [...] | | + +---------+ + + | [facility] DEPARTMENT OF | | | [...] | | | | | | a Delta-Lupe catheter | | | | | | [...] | | | | placement of a Delta-Lupe | | | | | | catheter. CHEST, | | | | | | SINGLE AP PORTABLE: | | | | | | 03-31-93 AT 1000 HOURS | | | | | | FINDINGS: Since the | | | | | | prior study, the | | | | | | Delta-Lupe catheter has | | | | | [...] IMPRESSION: | | | | | | Delta-Lupe catheter | | | | | | [...] The | | | | | | Delta-Lupe catheter | | | | | | [...] and | | | | | | Delta-Lupe catheter | | | | | | [...] endotracheal | | | | | | tube,Delta-Lupe catheter | | | | | | [...] | | + +---------+ + + | [facility] DEPARTMENT OF | | | [...] | | | | | | a Delta-Lupe catheter | | | | | | [...] | | | | placement of a Delta-Lupe | | | | | | catheter. CHEST, | | | | | | SINGLE AP PORTABLE: | | | | | | 03-31-93 AT 1000 HOURS | | | | | | FINDINGS: Since the | | | | | | prior study, the | | | | | | Delta-Lupe catheter has | | | | | [...] IMPRESSION: | | | | | | Delta-Lupe catheter | | | | | | [...] The | | | | | | Delta-Lupe catheter | | | | | | [...] and | | | | | | Delta-Lupe catheter | | | | | | [...] endotracheal | | | | | | tube,Delta-Lupe catheter | | | | | | [...] | | + +---------+ + + | [facility] DEPARTMENT OF | | | [...] | | | | | | a Delta-Lupe catheter | | | | | | [...] | | | | placement of a Delta-Lupe | | | | | | catheter. CHEST, | | | | | | SINGLE AP PORTABLE: | | | | | | 03-31-93 AT 1000 HOURS | | | | | | FINDINGS: Since the | | | | | | prior study, the | | | | | | Delta-Lupe catheter has | | | | | [...] IMPRESSION: | | | | | | Delta-Lupe catheter | | | | | | [...] The | | | | | | Delta-Lupe catheter | | | | | | [...] and | | | | | | Delta-Lupe catheter | | | | | | [...] endotracheal | | | | | | tube,Delta-Lupe catheter | | | | | | [...] | | | | | [facility] | | | | | | Bilateral [...] | | | | | | a Delta-Lupe catheter | | | | | | [...] | | | | placement of a Delta-Lupe | | | | | | catheter. CHEST, | | | | | | SINGLE AP PORTABLE: | | | | | | 03-31-93 AT 1000 HOURS | | | | | | FINDINGS: Since the | | | | | | prior study, the | | | | | | Delta-Lupe catheter has | | | | | [...] IMPRESSION: | | | | | | Delta-Lupe catheter | | | | | | [...] The | | | | | | Delta-Lupe catheter | | | | | | [...] and | | | | | | Delta-Lupe catheter | | | | | | [...] endotracheal | | | | | | tube,Delta-Lupe catheter | | | | | | [...] | | | | | | a Delta-Lupe catheter | | | | | | [...] | | | | placement of a Delta-Lupe | | | | | | catheter. CHEST, | | | | | | SINGLE AP PORTABLE: | | | | | | 03-31-93 AT 1000 HOURS | | | | | | FINDINGS: Since the | | | | | | prior study, the | | | | | | Delta-Lupe catheter has | | | | | [...] IMPRESSION: | | | | | | Delta-Lupe catheter | | | | | | [...] The | | | | | | Delta-Lupe catheter | | | | | | [...] and | | | | | | Delta-Lupe catheter | | | | | | [...] endotracheal | | | | | | tube,Delta-Lupe catheter | | | | | | [...]
--- OUTSIDE RECORDS SUMMARY | ~2019-11-04 | XMS | Encounter Summary ---
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
--- OUTSIDE RECORDS SUMMARY | ~2019-11-04 | XMS | Encounter Summary ---
Demographics + + + | Address | [address] | | | [place] [address] | + + + | Home Phone | | + + + | Preferred Language | Unknown | + + + | Marital Status | Single | + + + | Jewish Affiliation | PRO | + + + [...] [place] | | | | | [address] | | + + + + + Care Team Providers + +------+ + | Care Manager Client Name | Role | Phone | + [...] Clinic | | | | | | [facility], [address] | | | | | | [place], [place] | | | | | | [address] | | | | | | [phone] | | | +--------+ + + + [...] as of this encounter Progress Notes Interface, Production Line Welder In - 01/03/2007 5:08 AM PST CLINIC DATE: 12/22/97 Mr. Andujar is referred by Dr. Jerry Smiley in the [place] area. He is currently followed by the Anesthesia Pain Service at [facility], and also recently has been [...] under Dr. Robert Carlson's supervision here at [facility]. His pain continued, exacerbated by [...] procedure at this time. Eric Mcclure M.D. Supervisor Lead Burning, Department of Orthopaedics and Rehabilitation AY/sara A cc: Jerry Smiley M.D. (with letter) [address] [place] [address] [address] [place] [address] Robert Carlson M.D. FAX: [phone] Alina Moise M.D. FAX: [phone] [facility] ClinicFAX: [phone] documented in this encounter Plan of Treatment Not on filedocumented as of this encounter Visit Diagnoses Not on filedocumented in this encounter
--- OUTSIDE RECORDS SUMMARY | ~2019-11-04 | XMS | Encounter Summary ---
Demographics + + + | Address | [address] | | | [place] [address] | + + + | Home Phone [...] Team Providers + +------+ + | Care Pilot Plant Operator Helper Name | Role | Phone | + +------+ + | Rahul Silva MD | PCP | | + +------+ + Encounter Details +--------+ + + + + | Date | Type | Department | Care Team | Description | +--------+ + + + + | 07/26/ | Orders Only | [facility] | Farrukh Acuna MD | Chronic kidney | | 2019 | | NEPRHOLOGY [place] | [address] | disease, stage IV | | | | [address] | [address] [place], [place] | (severe) (HCC); | | | | [address] [place], [place] | [address] | Persistent | | | | [address] | | proteinuria; | | | | [phone] | | Secondary | | | | [...] | | | | | | [address] [place], [place] | | | | | | [address] | | | | | | | [...]
--- OUTSIDE RECORDS SUMMARY | ~2019-11-04 | XMS | Encounter Summary ---
Demographics + + + | Address | [address] | | | [place] [address] | + + + | Home Phone [...] Team Providers + +------+ + | Care Client Professional Name | Role | Phone | [...] [address] | | | | | [place], [place] | [place], [place] | | | | | [address] | [address] | | | | | [phone] | [phone] | | | | | | | [...] | | | | | | [address] [facility] | | | | | | [address] | | | | | | | [...]
--- OUTSIDE RECORDS SUMMARY | ~2019-11-04 | XMS | Encounter Summary ---
Demographics + + + | Address | [address] | | | [place] [address] | + + + | Home Phone [...] Team Providers + +------+ + | Care Crown Blocker Name | Role | Phone | + [...] [place] | (cancellation) | | | | [place], | [place], [place] | | | | | [place] [address] | [address] | | | | | [phone] | | | +--------+ + + + [...] 2020 | Visit | | [address] [facility] | | | | | | [address] [place] | | | | | | [address] | | | | | | | | +--------+---------+ + + + documented as of this encounter Visit Diagnoses Not on filedocumented in this encounter"
--- OUTSIDE RECORDS SUMMARY | ~2019-11-04 | XMS | Encounter Summary ---
Demographics + + + | Address | [address] | | | [place] [address] | + + + | Home Phone [...] Team Providers + +------+ + | Care Core Extruder Name | Role | Phone | + +------+ + | Rahul Silva MD | PCP | | + +------+ + Encounter Details +--------+ + + + + | Date | Type | Department | Care Team | Description | +--------+ + + + + | 10/28/ | Orders Only | [facility] | Conversion | | | 2016 | | NEPHROLOGY [place] | Transaction, | | | | | [address] | Provider Unknown | | | | | [address] [place] | | | | | | [address] | (Fax) | | | | | [phone] | | | +--------+ + + + [...] [place] | | | | | | [address] | | | | | | | [...]
--- OUTSIDE RECORDS SUMMARY | ~2019-11-04 | XMS | Encounter Summary ---
Demographics + + + | Address | [address] | | | [place] [address] | + + + | Home Phone [...] Team Providers + +------+ + | Care Risk Analyst Name | Role | Phone | [...] + + | 08/13/ | Telephone | [facility] | Farrukh Acuna MD | Other (lab result) | | 2019 | | NEPRHOLOGY [place] | [address] [facility] [address] | | | | | [address] | [address] [place], [place] | | | | | [address] [place], [place] | [address] | | | | | [address] | | | | | | [phone] | | | +--------+ + + + [...] [place] | | | | | | [address] | | | | | | | | +--------+---------+ + + + documented as of this encounter Visit Diagnoses Not on filedocumented in this encounter"
--- OUTSIDE RECORDS SUMMARY | ~2019-11-04 | XMS | Encounter Summary ---
Demographics + + + | Address | [address] | | | [place] [address] | + + + | Home Phone [...] Team Providers + +------+ + | Care Sports Marketing Specialist Name | Role | Phone | [...] [address] | | | | | [place], [place] | [place], [place] | | | | | [address] | [address] | | | | | [phone] | [phone] | | | | | | | [...] 2020 | Visit | | [address] [facility] | | | | | | [address] [facility] | | | | | | [address] | | | | | | | [...]
--- OUTSIDE RECORDS SUMMARY | ~2019-11-04 | XMS | Encounter Summary ---
Demographics + + + | Address | [address] | | | [place] [address] | + + + | Home Phone [...] Providers + +------+ + | Care Contract Officer Name | Role | Phone | [...] | Specialty | Vascular | Diagnoses | [facility] | | | Services | Surgery | Stage 5 | Farrukh Rubio MD | Surgery | | | Required | | chronic | [address] | [address] | | | | | kidney | [address] | [address] | | | | | disease not | [place], | [place], [place] | | | | | on chronic | [place] [address] | [address] | | | | | dialysis | Phone: | Phone: | | | | | ([facility]) | [phone] | [phone] | | | | | Hypertension | Fax: | Fax: | | | | | , | [phone] | [phone] | | | | | unspecified | | | | | | | type | | | +--------+ + + + + + Encounter Details +--------+ + + + + | Date | Type | Department | Care Team | Description | +--------+ + + + + | 07/28/ | Orders Only | [facility] | Farrukh Acuna MD | Iron deficiency | | 2019 | | NEPHROLOGY [place] | [address] [place] | (Primary Dx); Anemia | | | | [address] [place] | [address] [place], [place] | of chronic kidney | | | | [address] [place], [place] | [address] | failure, stage 5 | | | | [address] | | ([facility]); Stage 5 | | | | [phone] | | chronic kidney | | | | | | disease not on | | | | | | chronic dialysis | | | | | | ([facility]); Secondary | | | | | | hyperparathyroidism | | | | | | ([facility]); Hypertension, | | | | | | [...] [place] | | | | | | [address] | | | | | | (Fax) | | +--------+---------+ + + + + [...] until 07/28/2020 | | | | | (HCC) [...] dialysis | | | | | | (HCC) Hypertension, [...] dialysis | | | | | | ([facility]) Hypertension, | | | | | | unspecified type | | + +------+--------+ + + | Parathyroid Hormone, | Lab | Routin | Stage 5 chronic | Expected: | | Intact | | e | kidney disease not | 09/27/2019, Expires: | | | | | on chronic dialysis | 07/28/2020 | | | | | (HCC) Secondary | | | | | | hyperparathyroidism | | | | | | ([facility]) Hypertension, | | | | | | unspecified type | | + +------+--------+ + + + + +--------+ + + | Name | Type | Priori | Associated Diagnoses | Order Schedule | | | | ty | | | + + +--------+ + + | Ambulatory Referral | Outpatient | Routin | Stage 5 chronic | Ordered: 07/28/2019 | | to [facility] | Referral | e | kidney disease not | | | Surgery | | | on chronic dialysis | | | | | | ([facility]) Hypertension, | | | | | | [...]
--- OUTSIDE RECORDS SUMMARY | ~2019-11-04 | XMS | Encounter Summary ---
Demographics + + + | Address | [address] | | | [place] [address] | + + + | Home Phone [...] [place] | | | | | [address] | | + + + + + Care Team Providers + +------+ + | Care Safety Person Name | Role | Phone | [...] SW | Clinic | | | | criguirnder | [address] | | | | | | Mailcode: L475 | | | | | | Outpatient Clinic | | | | | | [facility], [address] | | | | | | [place], [place] | | | | | | [address] | | | | | | [phone] | | | +--------+ + + + [...] as of this encounter Progress Notes Interface, District Director In - 01/09/2007 5:07 AM PST CLINIC DATE: 10/03/97 [facility] - PROGRESS NOTE CHIEF [...] Vargas D.O. Resident, Anesthesiology Nelson Melara M.D. Clothing Sorter, Anesthesiology [facility] KAYLEENM/madelinev cc: [place] [address] JESSENIA RODRIGUEZ MD DEPARTMENT OF FAMILY MEDICINE [facility] documented in this encounter Plan of Treatment Not on filedocumented as of this encounter Visit Diagnoses Not on filedocumented in this encounter"
--- OUTSIDE RECORDS SUMMARY | ~2019-11-04 | XMS | Encounter Summary ---
Demographics + + + | Address | [address] | | | [place] [address] | + + + | Home Phone [...] Team Providers + +------+ + | Care Stable Attendant Name | Role | Phone | + +------+ + | Rahul Silva MD | PCP | | + +------+ + Encounter Details +--------+ + + + + | Date | Type | Department | Care Team | Description | +--------+ + + + + | 08/13/ | Orders Only | [facility] | Farrukh Acuna MD | | | 2017 | | NEPHROLOGY [place] | [address] [place] | | | | | [address] [place] | [address] [place], [place] | | | | | [address] [place], [place] | [address] | | | | | [address] | | | | | | [phone] | | | +--------+ + + + [...] [place] | | | | | | [address] | | | | | | | [...] | | | LAB | | | [facility]AN[facility] | | | | | + + [...]
--- OUTSIDE RECORDS SUMMARY | ~2019-11-04 | XMS | Encounter Summary ---
Demographics + + + | Address | [address] | | | [place] [address] | + + + | Home Phone [...] Providers + +------+ + | Care Motor Vehicle Clerk Name | Role | Phone | [...] [address] | | | | | [place], [place] | [place], [place] | | | | | [address] | [address] | | | | | [phone] | [phone] | | | | | | | [...] | | | | | | [address] [facility] | | | | | | [address] | | | | | | | [...]
--- OUTSIDE RECORDS SUMMARY | ~2019-11-04 | XMS | Encounter Summary ---
Demographics + + + | Address | [address] | | | [place] [address] | + + + | Home Phone [...] Team Providers + +------+ + | Care Retort Operator Name | Role | Phone | [...] [address] | | | | | [place], [place] | [place], [place] | | | | | [address] | [address] | | | | | [phone] | [phone] | | | | | | | [...] 2020 | Visit | | [address] [facility] | | | | | | [address] [facility] | | | | | | [address] | | | | | | | [...]
--- OUTSIDE RECORDS SUMMARY | ~2019-11-04 | XMS | Encounter Summary ---
Demographics + + + | Address | [address] | | | [place] [address] | + + + | Home Phone [...] [place] | | | | | [address] | | + + + + + Care Team Providers + +------+ + | Care Government Clerk Name | Role | Phone | + +------+ + PCP | Unavailable | + +------+ + Encounter Details +--------+ + + + + | Date | Type | Department | Care Team | Description | +--------+ + + + + | 12/22/ | Results | | Other, Faculty | | | 1997 | Only | | [phone] | | +--------+ + + + + [...] | | | | | | 12/22/96 [id number] hours. | | | | | | [...] + +---------+ + + | [facility] DEPARTMENT OF | | | | | [...] | | , 2 VIEWS | PORFIRIO CHACNO | | | | | | | | | | | | | | | | | | | | | | | | [phone] | | | | | | SPINE, [...] + +---------+ + + | [facility] DEPARTMENT OF | | | | | RADIOLOGY | | | | + +---------+ + + documented in this encounter Visit Diagnoses Not on filedocumented in this encounter"
--- OUTSIDE RECORDS SUMMARY | ~2019-11-04 | XMS | Encounter Summary ---
Demographics + + + | Address | [address] | | | [place] [address] | + + + | Home Phone [...] Team Providers + +------+ + | Care Banner Painter Name | Role | Phone | + +------+ + | Rahul Silva MD | PCP | | + +------+ + Encounter Details +--------+ + + + + | Date | Type | Department | Care Team | Description | +--------+ + + + + | 09/07/ | Orders Only | [facility] | Farrukh Acuna MD | | | 2018 | | NEPRHOLOGY [place] | [address] | | | | | [address] | [address] [place], [place] | | | | | [address] [place], [place] | [address] | | | | | [address] | | | | | | [phone] | | | +--------+ + + + [...] 2020 | Visit | | [address] [facility] | | | | | | 160 [place] | | | | | | [address] | | | | | | | [...]
--- OUTSIDE RECORDS SUMMARY | ~2019-11-04 | XMS | Encounter Summary ---
Demographics + + + | Address | [address] | | | [place] [address] | + + + | Home Phone [...] Providers + +------+ + | Care Medical Records Field Technician Name | Role | Phone | [...] + + | 09/07/ | Telephone | [facility] | Sandy Gomez, | Surgery Appointment | | 2019 | | VASCULAR SURGERY | RN | | | | | [address] | | | | | | [place] | | | | | | [address] | | | | | | [phone] | | | +--------+ + + + [...] [place] | | | | | | [address] | | | | | | | | +--------+---------+ + + + documented as of this encounter Visit Diagnoses Not on filedocumented in this encounter"
--- OUTSIDE RECORDS SUMMARY | ~2019-11-04 | XMS | Encounter Summary ---
Demographics + + + | Address | [address] | | | [place] [address] | + + + | Home Phone [...] [place] | | | | | [address] | | + + + + + Care Team Providers + +------+ + | Care Stripper Shovel Operator Name | Role | Phone | + +------+ + PCP | Unavailable | + +------+ + Encounter Details +--------+ + + + + | Date | Type | Department | Care Team | Description | +--------+ + + + + | 12/22/ | Transcribed | All[facility] at | [place], Other | Transcribed | | 1997 | | [facility] [address] | | | | | | [address] | | | | | | Mailcode: OP34 [address] | | | | | | [place] | | | | | | [place], | | | | | | [place] [address] | | | | | | [phone] | | | +--------+ + + + [...] as of this encounter Progress Notes Interface, Labor Economics Teacher In - 01/03/2007 5:08 AM PST [address] [address] Department of Orthopaedics, [facility] OP19 December 21, 1997 Jerry Smiley M.D. [address] [place] [address] RE:Kavon Andujar MR#:[id number] Smiley: Thank [...] Carlson might like. Sincerely, Eric Mcclure M.D. Drywall Taper, Department of Orthopaedics and Rehabilitation ERICK/sara A documented in this encounter Plan of Treatment Not on filedocumented as of this encounter Visit Diagnoses Not on filedocumented in this encounter"
--- OUTSIDE RECORDS SUMMARY | ~2019-11-04 | XMS | Encounter Summary ---
Demographics + + + | Address | [address] | | | [place] [address] | + + + | Home Phone [...] [place] | | | | | [address] | | + + + + + Care Team Providers + +------+ + | Care Motorcycle Subassembly Repairer Name | Role | Phone | [...] Rd | | | | | | [place], [place] | | | | | | [address] | | | +--------+ + + + [...] as of this encounter Progress Notes Interface, Grade Setter In - 03/27/2007 3:12 AM PDT CLINIC [...] an abnormal AC-BE, he was referred to [facility] for colonoscopy. MEDICATIONS: 1. Vicodin. 2. [...] Dr. Valles who is his physician in [place], [place]. He has made me aware that [...]
--- OUTSIDE RECORDS SUMMARY | ~2019-11-04 | XMS | Encounter Summary ---
Demographics + + + | Address | [address] | | | [place] [address] | + + + | Home Phone [...] Team Providers + +------+ + | Care Tomographic Tech Name | Role | Phone | [...] [address] | | | | | [place], [place] | [place], [place] | | | | | [address] | [address] | | | | | [phone] | [phone] | | | | | | | [...] | | | | | | [address] [facility] | | | | | | [address] | | | | | | | [...]
--- OUTSIDE RECORDS SUMMARY | ~2019-11-04 | XMS | Encounter Summary ---
Demographics + + + | Address | [address] | | | [place] [address] | + + + | Home Phone [...] [place] | | | | | [address] | | + + + + + Care Team Providers + +------+ + | Care Radio Frequency Technician Name | Role | Phone | [...] [id number] | | | | | | [place], [place] | | | | | | [address] | | | | | | [phone] | | | +--------+ + + + [...] [facility] | [address] | [place] [address] | | | PATHOLOGY | [address] [...] [facility] | [address] | [place] [address] | | | PATHOLOGY | [address] [...] + + | [facility] | [address] | [place] [address] | | | PATHOLOGY | [address] [...] [facility] | [address] | [place] [address] | | | PATHOLOGY | [address] | | | + + + + + documented in this encounter Visit Diagnoses Not on filedocumented in this encounter
--- OUTSIDE RECORDS SUMMARY | ~2019-11-04 | XMS | Encounter Summary ---
Demographics + + + | Address | [address] | | | [place] [address] | + + + | Home Phone [...] Team Providers + +------+ + | Care Teletype Clerk Name | Role | Phone | [...] | | | stage 5, GFR | [address] | | | | | | less than | Phone: | | | | | | 15 ml/min | [phone] | | | | | | (HCC) | Fax: | | | | | | Procedures | [phone] | | | | | | VAS [...] + + | 10/20/ | Office | [facility] | Trisha Conner DNP | CKD (chronic kidney | | 2019 | Visit | VASCULAR SURGERY | [address] | disease) stage 5, | | | | [address] | [place], [place] | GFR less than 15 | | | | [place], [place] | [address] | ml/min (HCC) | | | | [address] | | (Primary Dx); AVF | | | | [phone] | | (arteriovenous | | | | [...] Trisha Conner DNP - 10/20/2019 2:30 PM [facility] [address] [place] [place] [address] Office: [phone] DATE OF VISIT: 10/20/2019 PATIENT NAME: Kavon Andujar : 1940; AGE: 79 y.o.; Sex:M PHONE NUMBER: ; ; PROVIDER: Trisha Conner DNP PRIMARY CARE / REFERRING PHYSICIAN: No ref. provider found / Rahul Silva MD / [address] / [place] [address] REASON FOR EVALUATION / CHIEF COMPLAINT: Vascular Surgery Postoperative Visit for AVF creation The patient presents today for a Vascular Surgery Postoperative Visit. The patient is statu s post right brachiocephalic AVF creation, which was performed on 09/10/2019 at the [facility] Operating Room. The patient is not having any pain. The patient denie s fever, wound drainage, increasing redness, pus, increasing pain, increasing swelling. Phys ical examination revealed surgical incision is healed. He has good thrills over the AVF site . Patient's municipal engineer is Dr. Acuna. The patient is not [...] | | | | | | [address] [place], [place] | | | | | | [address] | | | | | | | [...] stage 5, GFR less than 15 ml/min ([facility]) - Primary Chronic | | kidney disease, Stage V | + + | AVF (arteriovenous fistula) ([facility]) Arteriovenous fistula, acquired | + + documented in this encounter"
--- OUTSIDE RECORDS SUMMARY | ~2019-11-04 | XMS | Encounter Summary ---
Demographics + + + | Address | [address] | | | [place] [address] | + + + | Home Phone [...] Team Providers + +------+ + | Care Trademark Affixer Name | Role | Phone | + [...] | | | hip | [address] | | | | | | fracture, | [place] | | | | | | initial | [place], [place] | | | | | | encounter | [address] | | | | | | ([facility]) | Phone: | | | | | | Status post | [phone] | | | | | | above knee | Fax: | | | | | | amputation | [phone] | | | | | | of [...] | | | | | ([facility]) | | | | | | | | | | | | | | | | | +--------+--------+ + + + + Encounter Details +--------+ + + + + | Date | Type | Department | Care Team | Description | +--------+ + + + + | 08/03/ | Hospital | [facility] | Jose Andrade | Laceration of left | | 2016 - | Encounter | MED CTR SURGICAL | MD Mehrdad [address] | ear, initial | | | | [address] [place] | [address] [place] | encounter (Primary | | 08/05/ | | [place] [address] | [place] [address] | Dx); Closed left hip | | 2016 | | [phone] | [phone] | fracture, initial | | | | | | encounter ([facility]); | | | | | Guillermo Atkins, | Fall, initial | | | | | DO [address] | encounter; Acute | | | | | [address] [place], | pain; Hyperkalemia; | | | | | [place] [address] | CKD (chronic kidney | | | | | [phone] | disease), | | | | | [...] | | | | | | encounter ([facility]); | | | | | | PAOLO on CPAP; Status | | | | | | post fall; Status | | | | | | 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 Name/Age/: Kavon Andujar 76 [...] mg by mouth nightly. aka: LIPITOR Cholecalciferol [address] units Caps Take 50,000 Units by mouth [...] in 7-10 days Contact information: [address] [place] [id number] PENDING RESULTS: HOSPITAL COURSE: Please refer to [...] by: Petey Bolivar MD, 08/05/2016 13:07 [facility] Portions of this chart may have been created with LeTV voice recognition software. Occasi onal wrong-word or sound-alike substitutions may have occurred due to the inherent vanegas itations of voice recognition software. Please read the chart carefully and recognize, using context, where these substitutions have occurred documented in this encounter Discharge Instructions Instructions Maritza Devries RN - 08/05/2016Please call Dr. Tobar at [phone] for an y questions or concerns regarding [...] 0 | | | | (VITAMIN D-3) [address] | mouth Every 3 | | | [...] might be differ ent from the original. [facility] Hospitalist Progress Note Kavon Andujar is a [...] Clear Clear PH UA 5.0 5.0-8.0 Specific [place] 1.015 1.001-1.030 PROTEIN UA 100 mg/dL (A) [...] as outlined above. Sonu Michel 08/04/2016 11:33 [facility] Yuriy Farrell RRT - 08/04/2016 8:42 [...] 2019 | Visit | | [address] [facility] | | | | | | [address] [place], [place] | | | | | | [address] | | | | | | | [...] until | | | | | encounter ([facility]) | 08/04/2016 | | | | | Status post above | | | | | | knee amputation of | | | | | | left lower extremity | | | | | | ([facility]) | | + +------+--------+ + + | DME: Walker | DME | Routin | Closed left hip | Ordered: 08/05/2016 | | | | e | fracture, initial | | | | | | encounter ([facility]) | | | | | | Status post above | | | | | | knee amputation of | | | | | | left lower extremity | | | | | | ([facility]) | | + +------+--------+ + [...] | | POC | | | [facility] | | | | | | MEDICAL | | | | | | CENTER - | | | | | | LABORATORY | | + +---------+ + + + + + | Specimen | + + | Blood | + + + + + + + | Performing | Address | City/State/[facility] | Phone Number | | Organization | | | | + + + + + | [facility] | [address] | [place] | [phone] | | [facility] | | [address] | | | - LABORATORY | | [...] (H) | 7 - 18 mg/dL | [facility] | | | | | | [facility] | | | | | | MEDICAL | | | | | | CENTER - | | | | | | LABORATORY | | + + + + + + | Creatinine | 1.80 (H) | 0.60 - 1.30 | [facility] | | | | | mg/dL | [facility] | | | | | | MEDICAL | | | | | | CENTER - | | | | | | LABORATORY | | + + + + + + | eGFR if not | 37 (L)Comment: | >=60 | [facility] | | | | GLOMERULAR FILTRATION | mL/min/1.73m2 | [facility] | | | [place] | RATE,ESTIMATED | | MEDICAL | | | | mL/min/1.93t2Olel than | | CENTER - | | [...] + | [facility] | [address] | [place] | [phone] | | [facility] | | [address] | | | - LABORATORY | | [...] [address] | [place] | [phone] | | [facility] | | [address] | | | - LABORATORY | | [...] [address] | [place] | [phone] | | [facility] | | [address] | | | - LABORATORY | | [...] [address] | [place] | [phone] | | [facility] | | [address] | | | - LABORATORY | | [...] [address] | [place] | [phone] | | [facility] | | [address] | | | - LABORATORY | | [...] [address] | [place] | [phone] | | [facility] | | [address] | | | - LABORATORY | | [...] + | [facility] | [address] | [place] | [phone] | | [facility] | | [address] | | | - LABORATORY | | [...] ST. | [address] | [place], [place] | [phone] | | [facility] | | [address] | | | - LABORATORY | | [...] + | [facility] | [address] | [place] | [phone] | | [facility] | | [address] | | | - LABORATORY | | [...] [address] | [place] | [phone] | | [facility] | | [address] | | | - LABORATORY | | [...] | | | | | | [facility] | | | | [...] mL/min/1.73m2 | [facility] | | | [place] | RATE,ESTIMATED | | MEDICAL | | | | mL/min/1.41s1Ewml than | | CENTER - | | [...] [address] | [place] | [phone] | | [facility] | | [address] | | | - LABORATORY | | [...] - 1.030 | [facility] | | | [place] | | | [facility] | | [...] [address] | [place] | [phone] | | [facility] | | [address] | | | - LABORATORY | | [...] | | | | AYAH RON MD ([id number]) | | | | | | on [...] + | [facility] | [address] | [place] | [phone] | | [facility] | | [address] | | | - LABORATORY | | [...] [address] | [place] | [phone] | | [facility] | | [address] | | | - LABORATORY | | [...] [address] | [place] | [phone] | | [facility] | | [address] | | | - LABORATORY | | [...] [address] | [place] | [phone] | | [facility] | | [address] | | | - LABORATORY | | [...] ST. | [address] | [place] | [phone] | | [facility] | | [address] | | | - LABORATORY | | [...] | | GLOMERULAR FILTRATION | mL/min/1.73m2 | [facility] | | | [place] | RATE,ESTIMATED | | MEDICAL | | | | mL/min/1.35e6Jtds than | | CENTER - | | [...] + | [facility] | [address] | [place] | [phone] | | [facility] | | [address] | | | - LABORATORY | | [...] | | | | | | | 4898-7929 Use NIGHT DOSE for | | | | | | | doses scheduled: HS, 3AM, | | | | | | | Nighttime 3755-4537, | | | | | | + [...] | +---+---+ + +-------+ +---------+---+ + | beyywif-ewnjdcoymi-rekdafdyt | Given | 08/03/20 | 0.5 mLs [...]
--- OUTSIDE RECORDS SUMMARY | ~2019-11-04 | XMS | Encounter Summary ---
Demographics + + + | Address | [address] | | | [place] [address] | + + + | Home Phone [...] Team Providers + +------+ + | Care Census Taker Name | Role | Phone | [...] + + | 09/01/ | Telephone | [facility] | Farrukh Acnua MD | Other | | 2019 | | NEPRHOLOGY [place] | [address] | | | | | [address] | [address] [place], [place] | | | | | [address] [place], [place] | [address] | | | | | [address] | | | | | | [phone] | | | +--------+ + + + [...] | | | | | | [address] [place], [place] | | | | | | [address] | | | | | | | | +--------+---------+ + + + documented as of this encounter Visit Diagnoses Not on filedocumented in this encounter"
--- OUTSIDE RECORDS SUMMARY | ~2019-11-04 | XMS | Encounter Summary ---
Demographics + + + | Address | [address] | | | [place] [address] | + + + | Home Phone [...] Team Providers + +------+ + | Care Target Trimmer Name | Role | Phone | + +------+ + PCP | Unavailable | + +------+ + Encounter Details +--------+ + + + + | Date | Type | Department | Care Team | Description | +--------+ + + + + | 05/22/ | [facility] | [facility] | Nelson Lutz MD | | | 1998 | Encounter | MED CTR GENERIC OP | [address] [place] | | | | | CONV DEPT [address] | [address] [place] | | | | | [place], | [address] | | | | | [place] [address] | | | | | | [phone] | | | +--------+ + + + [...] | | | | | | [address] | | | | | | [address] | | | | | | | | +--------+---------+ + + + documented as of this encounter Visit Diagnoses Not on filedocumented in this encounter"
--- OUTSIDE RECORDS SUMMARY | ~2019-11-04 | XMS | Encounter Summary ---
Demographics + + + | Address | [address] | | | [place] [address] | + + + | Home Phone [...] Team Providers + +------+ + | Care Appraisal Specialist Name | Role | Phone | + +------+ + | Rahul Silva MD | PCP | | + +------+ + Encounter Details +--------+ + + + + | Date | Type | Department | Care Team | Description | +--------+ + + + + | 11/10/ | Orders Only | [facility] | Conversion | | | 2017 | | NEPHROLOGY [facility] | Transaction, | | | | | [address] | Provider Unknown | | | | | [address] [place] | | | | | | [address] | (Fax) | | | | | [phone] | | | +--------+ + + + [...] | | | | | [address] [facility] | | | | | | [address] | | | | | | | [...]
--- OUTSIDE RECORDS SUMMARY | ~2019-11-04 | XMS | Encounter Summary ---
Demographics + + + | Address | [address] | | | [place] [address] | + + + | Home Phone [...] + +------+ + | Care Home Health Caregiver Name | Role | Phone | + [...] N Young | | | | | [place], [place] | [place], [place] | | | | | [address] | [address] | | | | | [phone] | [phone] | | | | | | | [...] | | | | | [facility] | | | | | | [address] | | | | | | | [...]
--- OUTSIDE RECORDS SUMMARY | ~2019-11-04 | XMS | Encounter Summary ---
Demographics + + + | Address | [address] | | | [place] [address] | + + + | Home Phone [...] + + | Author | [facility] | | | and [place] | + + + | Organization | [facility] | | | [...] Team Providers + +------+ + | Care Extrusion Die Repair Manager Name | Role | Phone | + +------+ + PCP | Unavailable | + +------+ + Encounter Details +--------+ + + + + | Date | Type | Department | Care Team | Description | +--------+ + + + + | 05/28/ | Hospital | [facility] | Elisabeth, | CORON ATHEROSCL | | 2002 - | Encounter | [facility]ENTER | MD Joshua | [place] [facility] | | | | CLINICAL DECISION | [address] [place] | | | 05/29/ | | [address] | [address] [place], [place] | | | 2002 | | [place], [place] | [address] | | | | | [address] | [phone] | | | | | [phone] | | | +--------+ + + + [...] [place] | | | | | | [address] | | | | | | | | +--------+---------+ + + + documented as of this encounter Visit Diagnoses + + | Diagnosis | + + | Coronary atherosclerosis of [place] coronary artery | + + documented in this encounter"
--- OUTSIDE RECORDS SUMMARY | ~2019-11-04 | XMS | Encounter Summary ---
Demographics + + + | Address | [address] | | | [place] [address] | + + + | Home Phone [...] Providers + +------+ + | Care Nutrition Coordinator Name | Role | Phone | [...] [address] Young | | | | | [place], [place] | [place], [place] | | | | | [address] | [address] | | | | | [phone] | [phone] | | | | | | | [...] | | [address] [facility] | | | | | | [address] | | | | | | | [...]
--- OUTSIDE RECORDS SUMMARY | ~2019-11-04 | XMS | Encounter Summary ---
Demographics + + + | Address | [address] | | | [place] [address] | + + + | Home Phone [...] [place] | | | | | [address] | | + + + + + Care Team Providers + +------+ + | Care Brazing Machine Setter Name | Role | Phone [...] [address] | | | | | | [place], [place] | | | | | | [address] | | | | | | [phone] | | | +--------+ + + + [...] of this encounter Progress Notes Interface, Plant Tech In - 01/06/2007 5:03 AM PST CLINIC DATE: 10/31/97 [facility] - PROCEDURE NOTE PROCEDURE: [...] his left thigh stump. Nelson Melara M.D. Corporate Secretary, [facility] MANDY/maryjo documented in this encounter Plan of Treatment Not on filedocumented as of this encounter Visit Diagnoses Not on filedocumented in this encounter"
--- OUTSIDE RECORDS SUMMARY | ~2019-11-04 | XMS | Encounter Summary ---
Demographics + + + | Address | [address] | | | [place] [address] | + + + | Home Phone [...] Organization | [facility] | | | [...] Providers + +------+ + | Care Metal Numerical Tool Programmer Name | Role | Phone | [...] [address] Young | | | | | [place], [place] | [place], [place] | | | | | [address] | [address] | | | | | [phone] | [phone] | | | | | | | [...] 12/06/ | Office | Nephrology | Farrukh Acuan MD | | | 2020 | Visit | | [address] [facility] | | | | | | [facility] | | | | | | [address] | | | | | | | [...]
--- OUTSIDE RECORDS SUMMARY | ~2019-11-04 | XMS | Encounter Summary ---
Demographics + + + | Address | [address] | | | [place] [address] | + + + | Home Phone [...] Team Providers + +------+ + | Care Java Programming Professor Name | Role | Phone | + +------+ + PCP | Unavailable | + +------+ + Encounter Details +--------+ + + + + | Date | Type | Department | Care Team | Description | +--------+ + + + + | 08/02/ | [facility] | [facility] | Nelson Lutz MD | | | 1991 | Encounter | MED CTR GENERIC OP | [address] [place] | | | | | CONV DEPT [address] | [address] [place] | | | | | [place], | [address] | | | | | [place] [address] | | | | | | [phone] | | | +--------+ + + + [...] [facility] | | | | | | [address] [place] [place] | | | | | | [address] | | | | | | | | +--------+---------+ + + + documented as of this encounter Visit Diagnoses Not on filedocumented in this encounter"
--- OUTSIDE RECORDS SUMMARY | ~2019-11-04 | XMS | Encounter Summary ---
Demographics + + + | Address | [address] | | | [place] [address] | + + + | Home Phone [...] Team Providers + +------+ + | Care Board Certified Family Physician Name | Role | Phone | [...] [place] | | | | | | [address] | (Fax) | | | | | [phone] | | | +--------+ + + + [...] [place] | | | | | | [address] | | | | | | | [...]
--- OUTSIDE RECORDS SUMMARY | ~2019-11-04 | XMS | Encounter Summary ---
Demographics + + + | Address | [address] | | | [place] [address] | + + + | Home Phone [...] [place] | | | | | [address] | | + + + + + Care Team Providers + +------+ + | Care Hand Cell Tuber Name | Role | Phone | + [...] Rd | | | | | | [place] | | | | | | [address] | | | +--------+ + + + [...] of this encounter Discharge Summaries Interface, Product Mgr In - 04/01/2007 5:08 AM PDT [address] [address] [facility] MEDICAL SUMMARY OF [...] Clinic NK:freddie A cc: RUBIA KNAPP MD [address] [facility] [address] documented in this encounter Plan of Treatment Not on filedocumented as of this encounter Visit Diagnoses Not on filedocumented in this encounter"
--- OUTSIDE RECORDS SUMMARY | ~2019-11-04 | XMS | Encounter Summary ---
Demographics + + + | Address | [address] | | | [place] [address] | + + + | Home Phone [...] Team Providers + +------+ + | Care Anodic Treater Name | Role | Phone | + [...] [address] [place] | [place], [place] | | | | | [place] | [address] | | | | | [address] | [phone] | | | | | [phone] | | | +--------+ + + + [...] | [address] [facility] | | | | | | [address] | | | | | | | | +--------+---------+ + + + documented as of this encounter Visit Diagnoses Not on filedocumented in this encounter"
--- OUTSIDE RECORDS SUMMARY | ~2019-11-04 | XMS | Encounter Summary ---
Demographics + + + | Address | [address] | | | [place] [address] | + + + | Home Phone [...] Team Providers + +------+ + | Care Mechanic Assistant Name | Role | Phone | + +------+ + | Rahul Silva MD | PCP | | + +------+ + Encounter Details +--------+ + + + + | Date | Type | Department | Care Team | Description | +--------+ + + + + | 01/26/ | Orders Only | [facility] | Conversion | | | 2014 | | NEPRHOLOGY [place] | Transaction, | | | | | [address] | Provider Unknown | | | | | [address] [place], [place] | | | | | | [address] | (Fax) | | | | | [phone] | | | +--------+ + + + [...] | | [address] [facility] [address] | | | | | | [address] [place], [place] | | | | | | [address] | | | | | | | [...] | | | LAB | | | [facility] | | | | | + + [...]
--- OUTSIDE RECORDS SUMMARY | ~2019-11-04 | XMS | Encounter Summary ---
Demographics + + + | Address | [address] | | | [place] [address] | + + + | Home Phone [...] [place] | | | | | [address] | | + + + + + Care Team Providers + +------+ + | Care Log Deck Tender Name | Role | Phone | + +------+ + PCP | Unavailable | + +------+ + Encounter Details +--------+ + + + + | Date | Type | Department | Care Team | Description | +--------+ + + + + | 03/31/ | Results | Pulmonary Function | Jarod Gupta MD | | | 1992 | Only | Lab at [facility] [address] | [address] | | | | | [address] | [place], | | | | | Mailcode: [id number] | [place] [address] | | | | | [address] | [phone] | | | | | [place], [place] | | | | | | [address] | | | | | | [phone] | | | +--------+ + + + [...] | | | | | | a Graham-Lupe catheter | | | | | | [...] | | | | placement of a Graham-Lupe | | | | | | catheter. CHEST, | | | | | | SINGLE AP PORTABLE: | | | | | | 03-31-93 AT 1000 HOURS | | | | | | FINDINGS: Since the | | | | | | prior study, the | | | | | | Graham-Lupe catheter has | | | | | [...] IMPRESSION: | | | | | | Graham-Lupe catheter | | | | | | [...] The | | | | | | Graham-Lupe catheter | | | | | | [...] and | | | | | | Graham-Lupe catheter | | | | | | [...] endotracheal | | | | | | tube,Graham-Lupe catheter | | | | | | [...] + + + + + | [facility] | [address] | [place] [address] | | | PATHOLOGY | [address] | | | + + + + + documented in this encounter Visit Diagnoses Not on filedocumented in this encounter"
--- OUTSIDE RECORDS SUMMARY | ~2019-11-04 | XMS | Encounter Summary ---
Demographics + + + | Address | [address] | | | [place] [address] | + + + | Home Phone [...] Providers + +------+ + | Care Lead Technical Architect Name | Role | Phone | [...] + + | 10/20/ | Telephone | [facility] | Alfred, | Mary (Tera F/U) | | 2018 | | NEPHROLOGY [place] | [facility] | | | | | [address] | [address] [place]utter | | | | | [address] | | | | | | [place] | | | | | | [address] | | | | | | [phone] | | | +--------+ + + + [...] 2020 | Visit | | [address] [facility] | | | | | | [address] [facility] [place] | | | | | | [address] | | | | | | | | +--------+---------+ + + + documented as of this encounter Visit Diagnoses Not on filedocumented in this encounter"
--- OUTSIDE RECORDS SUMMARY | ~2019-11-04 | XMS | Encounter Summary ---
Demographics + + + | Address | [address] | | | [place] [address] | + + + | Home Phone [...] Team Providers + +------+ + | Care Wharf Hand Name | Role | Phone | [...] [address] | | | | | [place], [place] | [place], [place] | | | | | [address] | [address] | | | | | [phone] | [phone] | | | | | | | [...] [place] | | | | | | [address] | | | | | | | [...]
--- OUTSIDE RECORDS SUMMARY | ~2019-11-04 | XMS | Encounter Summary ---
Demographics + + + | Address | [address] | | | [place] [address] | + + + | Home Phone [...] Providers + +------+ + | Care Crown Ceramist Name | Role | Phone | + [...] + + | 09/24/ | Telephone | [facility] | Farrukh Acuna MD | Lab Results | | 2019 | | NEPHROLOGY [place] | [address] [place] | | | | | [address] [place] | [address] [place], [place] | | | | | [address] [place], [place] | [address] | | | | | [address] | | | | | | [phone] | | | +--------+ + + + [...] | | | | | | [address] [place] | | | | | | [address] | | | | | | | | +--------+---------+ + + + documented as of this encounter Visit Diagnoses Not on filedocumented in this encounter"
--- OUTSIDE RECORDS SUMMARY | ~2019-11-04 | XMS | Encounter Summary ---
Demographics + + + | Address | [address] | | | [place] [address] | + + + | Home Phone [...] Providers + +------+ + | Care Manager Fixed Income Name | Role | Phone | + [...] + + | 08/18/ | Refill | [facility] | Sandy Capellan | Medication Refill | | 2019 | | NEPRHOLOGY [place] Valadez RN | | | | | [address] | | | | | | [address] [place], [place] | | | | | | [address] | | | | | | [phone] | | | +--------+--------+ + + + [...] [place] | | | | | | [address] | | | | | | | [...]
--- OUTSIDE RECORDS SUMMARY | ~2019-11-04 | XMS | Encounter Summary ---
Demographics + + + | Address | [address] | | | [place] [address] | + + + | Home Phone [...] Team Providers + +------+ + | Care Slitting Machine Feeder Name | Role | Phone | + +------+ + | Rahul Silva MD | PCP | | + +------+ + Encounter Details +--------+ + + + + | Date | Type | Department | Care Team | Description | +--------+ + + + + | 07/18/ | Orders Only | [facility] | Conversion | | | 2015 | | NEPHROLOGY [place] | Transaction, | | | | | [address] [facility] | Provider Unknown | | | | | [address] | [phone] | | | | | [address] | | | | | | [phone] | | | +--------+ + + + [...] 2020 | Visit | | [address] [facility] [address] | | | | | | [address] [place], [place] | | | | | | [address] | | | | | | | [...] - 1.030 | EXTERNAL | | | [place] | | | LAB | | + [...] | | | LAB | | | [place] | | | | | + + [...]
--- OUTSIDE RECORDS SUMMARY | ~2019-11-04 | XMS | Encounter Summary ---
Demographics + + + | Address | [address] | | | [place] [address] | + + + | Home Phone [...] Team Providers + +------+ + | Care Printer Slotter Feeder Name | Role | Phone | [...] + + | 09/28/ | Telephone | [facility] | Jason Sandy D, | Appointment | | 2018 | | VASCULAR SURGERY | RN | | | | | [address] | | | | | | [place] | | | | | | [address] | | | | | | [phone] | | | +--------+ + + + [...] | | | | | | [address] [place] | | | | | | [address] | | | | | | | | +--------+---------+ + + + documented as of this encounter Visit Diagnoses Not on filedocumented in this encounter"
--- OUTSIDE RECORDS SUMMARY | ~2019-11-04 | XMS | Encounter Summary ---
Demographics + + + | Address | [address] | | | [place] [address] | + + + | Home Phone [...] Team Providers + +------+ + | Care Composite Bond Worker Name | Role | Phone | + +------+ + | Rahul Silva MD | PCP | | + +------+ + Encounter Details +--------+ + + + + | Date | Type | Department | Care Team | Description | +--------+ + + + + | 07/11/ | Orders Only | [facility] | Farrukh Acuna MD | | | 2013 | | NEPHROLOGY [place] | [address] [place] | | | | | [address] [place] | [address] [place], [place] | | | | | [address] [place], [place] | [address] | | | | | [address] | | | | | | [phone] | | | +--------+ + + + [...] 2019 | Visit | | [address] [facility] | | | | | | [address] [place] | | | | | | [address] | | | | | | | | +--------+---------+ + + + documented as of this encounter Procedures + +--------+ + + + | Procedure Name | Priori | Date/Time | Associated Diagnosis | Comments | | | ty | | | | + +--------+ + + + | IRON AND IRON | Routin | 07/11/2014 | | Results for this | | BINDING CAPACITY | e | 12:00 AM | | procedure are in the | | | | PDT | | results section. | + +--------+ + + + | URINALYSIS WITH | Routin | 07/11/2014 | | Results for this | | MICROSCOPIC WITH | e | 12:00 AM | | procedure are in the | | CULTURE IF INDICATED | | PDT | | results section. | + +--------+ + + + | VITAMIN D, | Routin | 07/11/2014 | | Results for this | | DEFICIENCY SCREEN | e | 12:00 AM | | procedure are in the | | (25-HYDROXY) | | PDT | | results section. | + +--------+ + + + | PARATHYROID HORMONE, | Routin | 07/11/2014 | | Results for this | | INTACT AND CALCIUM | e | 12:00 AM | | procedure are in the | | | | PDT | | results section. | + +--------+ + + + | PROTEIN/CREATININE | Routin | 07/11/2014 | | Results for this | | RATIO, URINE | e | 12:00 AM | | procedure are in the | | | | PDT | | results section. | + +--------+ + + + | PROTEIN, URINE, | Routin | 07/11/2014 | | Results for this | | RANDOM | e | 12:00 AM | | procedure are in the | | | | PDT | | results section. | + +--------+ + + + | CREATININE, URINE, | Routin | 07/11/2014 | | Results for this | | RANDOM | e | 12:00 AM | | procedure are in the | | | | PDT | | results section. | + +--------+ + + + | URIC ACID | Routin | 07/11/2014 | | Results for this | | | e | 12:00 AM | | procedure are in the | | | | PDT | | results section. | + +--------+ + + + | TRANSFERRIN | Routin | 07/11/2014 | | Results for this | | | e | 12:00 AM | | procedure are in the | | | | PDT | | results section. | + +--------+ + + + | MAGNESIUM | Routin | 07/11/2014 | | Results for this | | | e | 12:00 AM | | procedure are in the | | | | PDT | | results section. | + +--------+ + + + | FERRITIN | Routin | 07/11/2014 | | Results for this | | | e | 12:00 AM | | procedure are in the | | | | PDT | | results section. | + +--------+ + + + | RENAL FUNCTION PANEL | Routin | 07/11/2014 | | Results for this | | | e | 12:00 AM | | procedure are in the | | | | PDT | | results section. | + +--------+ + + + | EXTERNAL LAB: CBC | Routin | 06/01/2014 | | Results for this | | | e | 12:00 AM | | procedure are in the | | | | PDT | | results section. | + +--------+ + + + | URINALYSIS WITH | Routin | 06/01/2014 | | Results for this | | MICROSCOPIC WITH | e | 12:00 AM | | procedure are in the | | CULTURE IF INDICATED | | PDT | | results section. | + +--------+ + + + | PROTEIN/CREATININE | Routin | 06/01/2014 | | Results for this | | RATIO, URINE | e | 12:00 AM | | procedure are in the | | | | PDT | | results section. | + +--------+ + + + | PROTEIN, URINE, | Routin | 06/01/2014 | | Results for this | | RANDOM | e | 12:00 AM | | procedure are in the | | | | PDT | | results section. | + +--------+ + + + | CREATININE, URINE, | Routin | 06/01/2014 | | Results for this | | RANDOM | e | 12:00 AM | | procedure are in the | | | | PDT | | results section. | + +--------+ + + + | URIC ACID | Routin | 06/01/2014 | | Results for this | | | e | 12:00 AM | | procedure are in the | | | | PDT | | results section. | + +--------+ + + + | MAGNESIUM | Routin | 06/01/2014 | | Results for this | | | e | 12:00 AM | | procedure are in the | | | | PDT | | results section. | + +--------+ + + + documented in this encounter Results Urinalysis with Microscopic with Culture if Indicated (07/11/2014 12:00 AM PDT) + + + + [...] + + + | Spec Grav, | 1.015 | 1.005 - 1.030 | EXTERNAL | [...] + + + + | Total | 25 | Negative | EXTERNAL | | | [...] + + | Ketones | Negative | Negative | EXTERNAL | | | | | | LAB | | + + + + + + | Bilirubin, | Negative | | EXTERNAL | | | Urine | | | LAB | | + + + + + + | Glucose, | 1+Comment: 100 | | EXTERNAL | | | [...] + + Iron and Iron Binding Capacity (07/11/2014 12:00 AM PDT) + + + + + + | Component | Value | Ref Range | Performed | Pathologist | | | | | At | Signature | + + + + + + | Iron | 55 | 37 - 160 | EXTERNAL | | | | | | LAB | | + + + + + + | Iron | 15.1 (A) | 20 - 55 | EXTERNAL | | | Saturation | | | LAB | | + + + + + + | TIBC | 365 | 245 - 400 | EXTERNAL | [...] + + Parathyroid Hormone, Intact and Calcium (07/11/2014 12:00 AM PDT) + + + + + + | Component | Value | Ref Range | Performed | Pathologist | | | | | At | Signature | + + + + + + | PTH Intact | 136.2 (A) | 15 - 65 | EXTERNAL [...] + +---------+ + + Protein/Creatinine Ratio, Urine (07/11/2014 12:00 AM PDT) + + + + + + | Component | Value | Ref Range | Performed | Pathologist | | | | | At | Signature | + + + + + + | Protein/Cre | 580.6 (A) | 0 - 150 | EXTERNAL [...] + +---------+ + + Protein, Urine, Random (07/11/2014 12:00 AM PDT) + +--------+ + + + | Component | Value | Ref Range | Performed | Pathologist | | | | | At | Signature | + +--------+ + + + | Protein, | 54 (A) | 0.0 - 50.0 | EXTERNAL | [...] + +---------+ + + Creatinine, Urine, Random (07/11/2014 12:00 AM PDT) + +-------+ + + + | Component | Value | Ref Range | Performed | Pathologist | | | | | At | Signature | + +-------+ + + + | Creatinine, | 93 | | EXTERNAL | | | 24H [...] + + Vitamin D, Deficiency Screen (25-Hydroxy) (07/11/2014 12:00 AM PDT) + +-------+ + + + | Component | Value | Ref Range | Performed | Pathologist | | | | | At | Signature | + +-------+ + + + | Vit D, | 9 (A) | 30 - 100 | EXTERNAL [...] | + +---------+ + + Uric Acid (07/11/2014 12:00 AM PDT) + +-------+ + + + | Component | Value | Ref Range | Performed | Pathologist | | | | | At | Signature | + +-------+ + + + | Uric Acid | 7.1 | 4.4 - 7.6 | EXTERNAL | [...] | | + +---------+ + + Transferrin (07/11/2014 12:00 AM PDT) + +-------+ + + + | Component | Value | Ref Range | Performed | Pathologist | | | | | At | Signature | + +-------+ + + + | TRANSFERRIN | 261 | 180 - 329 | EXTERNAL | [...] | | + +---------+ + + Magnesium (07/11/2014 12:00 AM PDT) + +---------+ + + [...] | | + +---------+ + + Ferritin (07/11/2014 12:00 AM PDT) + +-------+ + + + | Component | Value | Ref Range | Performed | Pathologist | | | | | At | Signature | + +-------+ + + + | Ferritin, | 47.27 | 30 - 400 ng/mL | EXTERNAL [...] + +---------+ + + Renal Function Panel (07/11/2014 12:00 AM PDT) + + + + + + | Component | Value | Ref Range | Performed | Pathologist | | | | | At | Signature | + + + + + + | Glucose, | 200 (A) | 70 - 100 mg/dL | EXTERNAL | | | Fasting | | | LAB | | + + + + + + | BUN | 19 | 6 - 23 mg/dL | EXTERNAL | | | | | | LAB | | + + + + + + | Creatinine | 1.78 (A) | 0.70 - 1.18 | EXTERNAL [...] + + + | Anion Gap | 15.6 | 7 - 21 mmol/L | EXTERNAL [...] | 10.7 | 6.0 - 28.6 | EXTERNAL | | | ine Ratio | | | LAB | | + + + + + + | Calcium | 8.6 | 8.4 - 10.2 | EXTERNAL | | | | | mg/dL | LAB | | + + + + + + | Estimated | 38 | mg/dL | EXTERNAL | | | [...] Urinalysis with Microscopic with Culture if Indicated (06/01/2014 12:00 AM PDT) + + + + [...] + + + | Spec Grav, | 1.013 | | EXTERNAL | | | Fluid | | | LAB | | + + + + + + | Leukocyte | 1+Comment: 100 | | EXTERNAL | | | Esterase, [...] + | pH, Urine | 5 | | EXTERNAL | | | | [...] + + + + | Glucose, | 1+Comment: 100 | | EXTERNAL | | | [...] + +---------+ + + Protein/Creatinine Ratio, Urine (06/01/2014 12:00 AM PDT) + +-------+ + + + | Component | Value | Ref Range | Performed | Pathologist | | | | | At | Signature | + +-------+ + + + | Protein/Cre | 255.1 | | EXTERNAL | | | at Ratio [...] + +---------+ + + Protein, Urine, Random (06/01/2014 12:00 AM PDT) + +-------+ + + + | Component | Value | Ref Range | Performed | Pathologist | | | | | At | Signature | + +-------+ + + + | Protein, | 25 | | EXTERNAL | | | [...] + +---------+ + + Creatinine, Urine, Random (06/01/2014 12:00 AM PDT) + +-------+ + + + | Component | Value | Ref Range | Performed | Pathologist | | | | | At | Signature | + +-------+ + + + | Creatinine, | 98 | | EXTERNAL | | | 24H [...] + +---------+ + + External Lab: CBC (06/01/2014 12:00 AM PDT) + +-------+ + + + | Component | Value | Ref Range | Performed | Pathologist | | | | | At | Signature | + +-------+ + + + | WBC | 8.5 | 10 | EXTERNAL | | | | | | LAB | | + +-------+ + + + | RED CELL | 3.44 | 10 | EXTERNAL | | | COUNT | | | LAB | | + +-------+ + + + | Hgb | 10.6 | g/dL | EXTERNAL | | | | | | LAB | | + +-------+ + + + | Hematocrit, | 32.4 | % | EXTERNAL | | | POC | | | LAB | | + +-------+ + + + | MCV | 94.1 | fL | EXTERNAL | | | | | | LAB | | + +-------+ + + + | MCH | 31 | pg | EXTERNAL | | | | | | LAB | | + +-------+ + + + | MCHC | 33 | g/dL | EXTERNAL | | | | | | LAB | | + +-------+ + + + | Platelet | 278 | K/ L | EXTERNAL | | | Count | | | LAB | | | Plasma | | | | | + +-------+ + + + | RDW-CV | 16.1 | % | EXTERNAL | | | | | | LAB | | + +-------+ + + + | MPV | | fL | EXTERNAL | | | | | | LAB | | + +-------+ + + + | Differentia | Auto | | EXTERNAL | | | l Type | | | LAB | | + +-------+ + + + | % Segmented | 73.7 | % | EXTERNAL | | | | | | LAB | | | Neutrophils | | | | | + +-------+ + + + | % | 12.7 | % | EXTERNAL | | | Lymphocytes | | | LAB | | + +-------+ + + + | % Monocytes | 6.6 | % | EXTERNAL | | | | | | LAB | | + +-------+ + + + | % | 6.3 | % | EXTERNAL | | | Eosinophils | | | LAB | | + +-------+ + + + | % Basophils | 0.7 | % | EXTERNAL | | | | | | LAB | | + +-------+ + + + | Absolute | | / L | EXTERNAL | | | Segmented | | | LAB | | | Neutrophils | | | | | + +-------+ + + + | Absolute | | / L | EXTERNAL | | | Lymphocytes | | | LAB | | + +-------+ + + + | Absolute | | / L | EXTERNAL | | | Monocytes | | | LAB | | + +-------+ + + + | Absolute | | / L | EXTERNAL | | | Eosinophils | | | LAB | | + +-------+ + + + | Absolute | | [...] | + +---------+ + + Uric Acid (06/01/2014 12:00 AM PDT) + +-------+ + + + | Component | Value | Ref Range | Performed | Pathologist | | | | | At | Signature | + +-------+ + + + | Uric Acid | 8.3 | | EXTERNAL | | | | [...] | | + +---------+ + + Magnesium (06/01/2014 12:00 AM PDT) + +-------+ + + + | Component | Value | Ref Range | Performed | Pathologist | | | | | At | Signature | + +-------+ + + + | Magnesium | 1.7 | mg/dL | EXTERNAL | | | [...]
--- OUTSIDE RECORDS SUMMARY | ~2019-11-04 | XMS | Encounter Summary ---
Demographics + + + | Address | [address] | | | [place] [address] | + + + | Home Phone [...] Team Providers + +------+ + | Care Category Director Name | Role | Phone | [...] + + | 09/01/ | Telephone | [facility] | Brian Orosco MD | Advice Only | | 2019 | | VASCULAR SURGERY | [address] | (surgery) | | | | [address] [place] | [place], [place] | | | | | [place], [place] | [address] | | | | | [address] | [phone] | | | | | [phone] | | | +--------+ + + + [...] Visit | | [address] [facility] | | | | | | [address] [facility] | | | | | | [address] | | | | | | | | +--------+---------+ + + + documented as of this encounter Visit Diagnoses Not on filedocumented in this encounter"
--- OUTSIDE RECORDS SUMMARY | ~2019-11-04 | XMS | Encounter Summary ---
Demographics + + + | Address | [address] | | | [place] [address] | + + + | Home Phone [...] Team Providers + +------+ + | Care Healthcare Advisory Services Manager Name | Role | Phone | + +------+ + | Rahul Silva MD | PCP | | + +------+ + Encounter Details +--------+ + + + + | Date | Type | Department | Care Team | Description | +--------+ + + + + | 02/12/ | Orders Only | [facility] | Farrukh Acuna MD | | | 2018 | | NEPHROLOG[place] | [address] [place] | | | | | [address] [place] | [address] [place], [place] | | | | | [address] [place], [place] | [address] | | | | | [address] | | | | | | [phone] | | | +--------+ + + + [...] 2020 | Visit | | [address] [facility] | | | | | | [address] [place] | | | | | | [address] | | | | | | | [...]
--- OUTSIDE RECORDS SUMMARY | ~2019-11-04 | XMS | Encounter Summary ---
Demographics + + + | Address | [address] | | | [place] [address] | + + + | Home Phone [...] [place] | | | | | [address] | | + + + + + Care Team Providers + +------+ + | Care Brand Strategist Name | Role | Phone | + [...] [address] | | | | | | [place], [place] | | | | | | [address] | | | | | | [phone] | | | +--------+ + + + [...] as of this encounter Progress Notes Interface, Supply Crib Attendant In - 01/06/2007 5:03 AM PST CLINIC DATE: 11/10/97 [facility] - FOLLOW-UP [...] of narcotic medication misuse. Nelson Melara M.D. Crop Research Scientist, [facility] MANDY/camryn cc: Robert Carlson M.D. Professor, Vascular Surgery documented in this encounter Plan of Treatment Not on filedocumented as of this encounter Visit Diagnoses Not on filedocumented in this encounter"
--- OUTSIDE RECORDS SUMMARY | ~2019-11-04 | XMS | Encounter Summary ---
Demographics + + + | Address | [address] | | | [place] [address] | + + + | Home Phone [...] Team Providers + +------+ + | Care Correction Officer Head Name | Role | Phone | + +------+ + | Rahul Silva MD | PCP | | + +------+ + Encounter Details +--------+ + + + + | Date | Type | Department | Care Team | Description | +--------+ + + + + | 01/26/ | Orders Only | [facility] | Conversion | | | 2014 | | NEPRHOLOGY [place] | Transaction, | | | | | [address] | Provider Unknown | | | | | [address] [place], [place] | | | | | | [address] | (Fax) | | | | | [phone] | | | +--------+ + + + [...] [place] | | | | | | [address] | | | | | | | [...]
--- OUTSIDE RECORDS SUMMARY | ~2019-11-04 | XMS | Encounter Summary ---
Demographics + + + | Address | [address] | | | [place] [address] | + + + | Home Phone [...] Team Providers + +------+ + | Care Turret Lathe Set Up Operator Name | Role | [...] + + | 09/07/ | Telephone | [facility] | Sandy Gomez, | Surgery Appointment | | 2019 | | VASCULAR SURGERY | RN | | | | | [address] | | | | | | [place] | | | | | | [address] | | | | | | [phone] | | | +--------+ + + + [...] [place] | | | | | | [address] | | | | | | | | +--------+---------+ + + + documented as of this encounter Visit Diagnoses Not on filedocumented in this encounter"
--- OUTSIDE RECORDS SUMMARY | ~2019-11-04 | XMS | Encounter Summary ---
Demographics + + + | Address | [address] | | | [place] [address] | + + + | Home Phone [...] Team Providers + +------+ + | Care Raised Printer Name | Role | Phone | + [...] [address] | | | | | [place], [place] | [place], [place] | | | | | [address] | [address] | | | | | [phone] | [phone] | | | | | | | [...] [place] | | | | | | [address] | | | | | | | [...]
--- OUTSIDE RECORDS SUMMARY | ~2019-11-04 | XMS | Encounter Summary ---
Demographics + + + | Address | [address] | | | [place] [address] | + + + | Home Phone [...] [place] | | | | | [address] | | + + + + + Care Team Providers + +------+ + | Care Wharf Builder Name | Role | Phone | [...] | | | | | | [place], | | | | | | [place] [address] | | | | | | [phone] | | | +--------+ + + + [...] as of this encounter Discharge Summaries Interface, Welt Butter Hand In - 12/22/2006 3:12 AM PST [address] [address] [facility] MEDICAL SUMMARY OF HOSPITALIZATION Med Rec No.: [id number] Admission Date: 04/06/98 Name: Kavon Andujar Discharge Date: 04/08/98 STAFF PHYSICIAN: Galo Arora M.D. Reservations Manager, Division of Plastic & Reconstructive Surgery [...] M.D. Resident, Plastic Surgery Galo Arora M.D. Reservations Manager, Division of Plastic & Reconstructive Surgery QIANA/charo P cc: GRIFFIN ASHER MD [address] [place] [address] documented in this encounter Plan of Treatment Not on filedocumented as of this encounter Visit Diagnoses Not on filedocumented in this encounter"
--- OUTSIDE RECORDS SUMMARY | ~2019-11-04 | XMS | Encounter Summary ---
Demographics + + + | Address | [address] | | | [place] [address] | + + + | Home Phone [...] [place] | | | | | [address] | | + + + + + Care Team Providers + +------+ + | Care Field Crew Chief Name | Role | Phone | + [...] [address] | | | | | | [place], [place] | | | | | | [address] | | | | | | [phone] | | | +--------+ + + + [...] as of this encounter Progress Notes Interface, Conveyor Attendant In - 01/06/2007 5:03 AM PST CLINIC DATE: 11/10/97 [facility] - FOLLOW-UP VISIT [...] of narcotic medication misuse. Nelson Melara M.D. Vehicle Check In Clerk, [facility] MANDY/camryn cc: Robert Carlson M.D. Professor, Vascular Surgery documented in this encounter Plan of Treatment Not on filedocumented as of this encounter Visit Diagnoses Not on filedocumented in this encounter"
--- OUTSIDE RECORDS SUMMARY | ~2019-11-04 | XMS | Encounter Summary ---
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 | (severe) ([facility]); | | | | [address] [place], [place] | [place] [address] | Persistent | | | | [address] | | proteinuria; | | | | [phone] | | Secondary | | | | | | hyperparathyroidism | | | | | | of renal origin | | | | | | ([facility]); Family | | | | | [...] | | | | | | [address] [place], [place] | | | | | | [address] | | | | | | | [...] | | | | | | ([facility]ER[facility]) Persistent | | | | | [...] | | | | | | ([facility]) Persistent | | | | | [...] | | | | | | ([facility]) Persistent | | | | | [...]
--- OUTSIDE RECORDS SUMMARY | ~2019-11-04 | XMS | Encounter Summary ---
Demographics + + + | Address | [address] | | | [place] [address] | + + + | Home Phone [...] Providers + +------+ + | Care Sales Development Coordinator Name | Role | Phone | [...] + | 08/07/ | Telephone | [facility] | Steven Tobar MD | Post-op Question | | 2016 | | OTOLARYNGOLOGY [address] | [address] [place] | (ear) | | | | [address] [place] [address] | [address] [place], | | | | | [place], [place] | [place] [address] | | | | | [address] | [phone] | | | | | [phone] | | | +--------+ + + + [...] [place] | | | | | | [address] | | | | | | | | +--------+---------+ + + + documented as of this encounter Visit Diagnoses Not on filedocumented in this encounter"
--- OUTSIDE RECORDS SUMMARY | ~2019-11-04 | XMS | Encounter Summary ---
Demographics + + + | Address | [address] | | | [place] [address] | + + + | Home Phone [...] Team Providers + +------+ + | Care Dynamiter Name | Role | Phone | + +------+ + | Rahul Silva MD | PCP | | + +------+ + Encounter Details +--------+ + + + + | Date | Type | Department | Care Team | Description | +--------+ + + + + | 09/07/ | Preadmit | [facility] | Brian Orosco MD | | | 2019 | Visit | CENTER PREADMIT | [address] | | | | | CLINIC [address] | [place], [place] | | | | | [place], [place] | [address] | | | | | [address] | [phone] | | | | | [phone] | | | +--------+ + + + [...] for the 09/07/19 encounter (Preadmit Visit) with [facility] ROOM 4 Medication Sig Instructions acyclovir (ZOVIRAX) [...] to check-in desk and are in the [facility] waiting room. AttachmentsThe following attachments cannot be sent through Care Everywhere.Hemodialysis Ac cess, Creating a (German)Dialysis, Arteriovenous (AV) Fistula for (German)documented in th is encounter Plan of Treatment +--------+---------+ + + + | Date | Type | Specialty | Care Team | Description | +--------+---------+ + + + | 12/06/ | Office | Nephrology | Farrukh Acuna MD | | | 2019 | Visit | | [address] [facility] | | | | | | [address] [place], [place] | | | | | | [address] | | | | | | | [...] | | | | | | [facility] traceable | | | | | | equation.Testing | | | | | | performed at [facility], [address] | | | | | | [facility], | | | | | | [place] [address] | | | | + + + + + + + + | Specimen | + + | Blood | + + + + + + + | Performing | Address | City/State/Zipcode | Phone Number | | Organization | | | | + + + + + | [facility] | [address] | [place] [address] | [phone] | + + + + + CBC [...] 0.09Comment: Testing | 0.00 - 0.10 | [facility] | | | Absolute | performed at [facility], [address] | K/uL | LABORATORY | | | | [address], | | | | | | [place] [address] | | | | + + + + + + + + | Specimen | + + | Blood | + + + + + + + | Performing | Address | City/State/Zipcode | Phone Number | | Organization | | | | + + + + + | [facility] | [address] | [place] [address] | [phone] | + + + + + ECG [...]
--- OUTSIDE RECORDS SUMMARY | ~2019-11-04 | XMS | Encounter Summary ---
Demographics + + + | Address | [address] | | | [place] [address] | + + + | Home Phone [...] Providers + +------+ + | Care Mixer Diamond Powder Name | Role | Phone | + [...] [address] | | | | | [place], [place] | [place] [address] | | | | | [address] | | | | | | [phone] | (Fax) | | +--------+ + + [...] | | | | | | [address] [facility], [place] | | | | | | [address] | | | | | | | [...] pressures of 5-10mmHg. MEASUREMENTS | | | Paying Teller: MARLENA Authenticated by: KAI BIRMINGHAM MD Report [...] venous pressures of 5-10mmHg. | | MEASUREMENTS Paying Teller: DHAuthenticated by: KAI BIRMINGHAM [facility] | | Date/Time: 03-27-2016 13:39:46 IMPRESSION: 1. [...] | |MEASUREMENTS | | | | | |Paying Teller: MARLENA | |Authenticated by: KAI BIRMINGHAM MD [...]
--- OUTSIDE RECORDS SUMMARY | ~2019-11-04 | XMS | Encounter Summary ---
Demographics + + + | Address | [address] | | | [place] [address] | + + + | Home Phone [...] Providers + +------+ + | Care Systems Tester Name | Role | Phone | + +------+ + | Rahul Silva MD | PCP | | + +------+ + Encounter Details +--------+ + + + + | Date | Type | Department | Care Team | Description | +--------+ + + + + | 03/24/ | Orders Only | [facility] | Farrukh Acuna MD | | | 2017 | | NEPHROLOGY [place] | [address] [place] | | | | | [address] [place] | [address] [place], [place] | | | | | [address] [place], [place] | [address] | | | | | [address] | | | | | | [phone] | | | +--------+ + + + [...] [place] | | | | | | [address] | | | | | | | [...]
--- OUTSIDE RECORDS SUMMARY | ~2019-11-04 | XMS | Encounter Summary ---
Demographics + + + | Address | [address] | | | [place] [address] | + + + | Home Phone [...] Team Providers + +------+ + | Care Carcass Splitter Name | Role | Phone | + +------+ + | Rahul Silva MD | PCP | | + +------+ + Encounter Details +--------+ + + + + | Date | Type | Department | Care Team | Description | +--------+ + + + + | 06/12/ | Orders Only | [facility] | Farrukh Acuna MD | | | 2017 | | NEPHROLOGY [place] | [address] [place] | | | | | [address] [place] | [address] [place], [place] | | | | | [address] [place], [place] | [address] | | | | | [address] | | | | | | [phone] | | | +--------+ + + + [...] | Visit | | [address] [facility] | | | | | | [address] [place] | | | | | | [address] | | | | | | | [...]
--- OUTSIDE RECORDS SUMMARY | ~2019-11-04 | XMS | Encounter Summary ---
Demographics + + + | Address | [address] | | | [place] [address] | + + + | Home Phone [...] Providers + +------+ + | Care Tar Leveler Name | Role | Phone | + +------+ + | Rahul Silva MD | PCP | | + +------+ + Encounter Details +--------+ + + + + | Date | Type | Department | Care Team | Description | +--------+ + + + + | 10/05/ | Orders Only | [facility] | Farrukh Acuna MD | Essential | | 2019 | | NEPHROLOGY [place] | [address] [place] | hypertension | | | | [address] | [address] [facility] [place] | (Primary Dx); Iron | | | | [address] | [address] | deficiency; | | | | [place], [place] | | Secondary | | | | [address] | | hyperparathyroidism | | | | [phone] | | (HCC); CKD (chronic | | | | | | kidney disease) | | | | | | stage 5, GFR less | | | | | | than 15 ml/min ([facility]) | +--------+ + + + + Social [...] [place] | | | | | | [address] | | | | | | | [...] | | | | | | ml/min ([facility]) | | + +------+--------+ + + | [...] | | | | | | ml/min ([facility]) | | + +------+--------+ + + | [...] | | | | than 15 ml/min ([facility]) | | + +------+--------+ + + documented [...]
--- OUTSIDE RECORDS SUMMARY | ~2019-11-04 | XMS | Encounter Summary ---
Demographics + + + | Address | [address] | | | [place] [address] | + + + | Home Phone [...] Team Providers + +------+ + | Care Tele Tech Name | Role | Phone | + +------+ + | Rahul Silva MD | PCP | | + +------+ + Encounter Details +--------+ + + + + | Date | Type | Department | Care Team | Description | +--------+ + + + + | 11/10/ | Orders Only | [facility] | Farrukh Acuna MD | | | 2017 | | NEPHROLOGY [place] | [address] [place] | | | | | [address] [place] | [address] [place], [place] | | | | | [address] [place], [place] | [address] | | | | | [address] | | | | | | [phone] | | | +--------+ + + + [...] 2020 | Visit | | [address] [facility] | | | | | | 160 [place] | | | | | | [address] | | | | | | | [...] | | | LAB | | | CYPRIOT | | | | | + + [...]
--- OUTSIDE RECORDS SUMMARY | ~2019-11-04 | XMS | Encounter Summary ---
Demographics + + + | Address | [address] | | | [place] [address] | + + + | Home Phone [...] Team Providers + +------+ + | Care Diamond Selector Name | Role | Phone | [...] | Transaction, | | | | | [place], [place] | Provider Unknown | | | | | [address] | | | | | | [phone] | | | +--------+ + + + [...] [place] | | | | | | [address] | | | | | | | [...] LAB | | Ordering Provider: , VENKAT MUELELR A, , , , AL[place], | | [...]
--- OUTSIDE RECORDS SUMMARY | ~2019-11-04 | XMS | Encounter Summary ---
Demographics + + + | Address | [address] | | | [place] [address] | + + + | Home Phone [...] Team Providers + +------+ + | Care Derrick Follower Name | Role | Phone | + +------+ + | Rahul Silva MD | PCP | | + +------+ + Encounter Details +--------+ + + + + | Date | Type | Department | Care Team | Description | +--------+ + + + + | 02/15/ | Orders Only | [facility] | Conversion | | | 2019 | | NEPHROLOGY [place] | Transaction, | | | | | [address] | Provider Unknown | | | | | [address] [place] | | | | | | [address] | (Fax) | | | | | [phone] | | | +--------+ + + + [...] | | | | | | [address] [facility] | | | | | | [address] | | | | | | | [...]
--- OUTSIDE RECORDS SUMMARY | ~2019-11-04 | XMS | Encounter Summary ---
Demographics + + + | Address | [address] | | | [place] [address] | + + + | Home Phone [...] [place] | | | | | [address] | | + + + + + Care Team Providers + +------+ + | Care Corrosion Control Engineer Name | Role | Phone | + +------+ + PCP | Unavailable | + +------+ + Encounter Details +--------+ + + + + | Date | Type | Department | Care Team | Description | +--------+ + + + + | 01/31/ | Transcribed | [facility] at | [place], Other | Transcribed | | 1997 | | [facility] [address] | | | | | | [address] | | | | | | Mailcode: [id number] | | | | | | [place] | | | | | | [place], | | | | | | [place] [address] | | | | | | [phone] | | | +--------+ + + + [...] as of this encounter Progress Notes Interface, Display Department Manager In - 12/28/2006 5:10 AM PST [address] [address] or January 31, 1998 GRIFFIN SMILEY MD [address] [facility] [address] [place] [address] RE:PORFIRIO ZAVALA MR#:[id number] Smiley: As [...] to hear in our conversation that the [place] [employer] does not cover Ultram in [...] in the future. Sincerely, Nelson Melara M.D. Automobile Sales Consultant, Anesthesiology [facility] MANDY/geovanni documented in this encounter Plan of Treatment Not on filedocumented as of this encounter Visit Diagnoses Not on filedocumented in this encounter"
--- OUTSIDE RECORDS SUMMARY | ~2019-11-04 | XMS | Encounter Summary ---
Demographics + + + | Address | [address] | | | [place] [address] | + + + | Home Phone [...] Team Providers + +------+ + | Care Intern Architect Name | Role | Phone | + +------+ + | Rahul Silva MD | PCP | | + +------+ + Encounter Details +--------+ + + + + | Date | Type | Department | Care Team | Description | +--------+ + + + + | 08/19/ | Orders Only | [facility] | Conversion | | | 2017 | | NEPHROLOGY [place] | Transaction, | | | | | [address] | Provider Unknown | | | | | [address] [place] | | | | | | [address] | (Fax) | | | | | [phone] | | | +--------+ + + + [...] [place] | | | | | | [address] | | | | | | | [...] | LAB | | | [place] | | | | | + + [...]
--- OUTSIDE RECORDS SUMMARY | ~2019-11-04 | XMS | Encounter Summary ---
Demographics + + + | Address | [address] | | | [place] [address] | + + + | Home Phone [...] Team Providers + +------+ + | Care Typing Bookkeeper Name | Role | Phone | + [...] + | 09/01/ | Telephone | [facility] | Farrukh Acuna MD | Other | | 2019 | | NEPRHOLOGY [place] | [address] [place] | | | | | [address] | [address] [place], [place] | | | | | [address] [place], [place] | [address] | | | | | [address] | | | | | | [phone] | | | +--------+ + + + [...] | | | | | | 160 [place], [place] | | | | | | [address] | | | | | | | | +--------+---------+ + + + documented as of this encounter Visit Diagnoses Not on filedocumented in this encounter"
--- OUTSIDE RECORDS SUMMARY | ~2019-11-04 | XMS | Encounter Summary ---
Demographics + + + | Address | [address] | | | [place] [address] | + + + | Home Phone [...] + +------+ + | Care Director Of Special Education Name | Role | Phone | + +------+ + | Rahul Silva MD | PCP | | + +------+ + Encounter Details +--------+ + + + + | Date | Type | Department | Care Team | Description | +--------+ + + + + | 12/19/ | Orders Only | [facility] | Conversion | | | 2016 | | NEPHROLOGY [place] | Transaction, | | | | | [address] | Provider Unknown | | | | | [address] [place] | | | | | | [address] | (Fax) | | | | | [phone] | | | +--------+ + + + [...] | | | | | [address] [facility] | | | | | | [address] | | | | | | | [...]
--- OUTSIDE RECORDS SUMMARY | ~2019-11-04 | XMS | Encounter Summary ---
Demographics + + + | Address | [address] | | | [place] [address] | + + + | Home Phone [...] Providers + +------+ + | Care Field Service Technician Name | Role | Phone [...] [address] Young | | | | | [place], [place] | [place], [place] | | | | | [address] | [address] | | | | | [phone] | [phone] | | | | | | | [...] | | | | | | [address] [facility] | | | | | | [address] | | | | | | | [...]
--- OUTSIDE RECORDS SUMMARY | ~2019-11-04 | XMS | Encounter Summary ---
Demographics + + + | Address | [address] | | | [place] [address] | + + + | Home Phone [...] Providers + +------+ + | Care Supervisor Welding Equipment Repairer Name | Role | Phone | + +------+ + | Rahul Silva MD | PCP | | + +------+ + Encounter Details +--------+ + + + + | Date | Type | Department | Care Team | Description | +--------+ + + + + | 07/17/ | Orders Only | [facility] | Conversion | | | 2016 | | NEPHROLOGY [place] | Transaction, | | | | | [address] | Provider Unknown | | | | | [address] [place] | | | | | | [address] | (Fax) | | | | | [phone] | | | +--------+ + + + [...] | | | | [address] [facility] | | | | | | [address] | | | | | | | [...]
--- OUTSIDE RECORDS SUMMARY | ~2019-11-04 | XMS | Encounter Summary ---
Demographics + + + | Address | [address] | | | [place] [address] | + + + | Home Phone [...] Team Providers + +------+ + | Care Commodity Specialist Name | Role | Phone | [...] N Young | | | | | [place], [place] | [place], [place] | | | | | [address] | [address] | | | | | [phone] | [phone] | | | | | | | [...] | | | | | | 160 [facility] | | | | | | [address] | | | | | | | [...]
--- OUTSIDE RECORDS SUMMARY | ~2019-11-04 | XMS | Encounter Summary ---
Demographics + + + | Address | [address] | | | [place] [address] | + + + | Home Phone [...] Team Providers + +------+ + | Care African Studies Professor Name | Role | Phone | [...] + + | 08/25/ | Telephone | [facility] | Brian Orosco MD | New Patient (08/26 | | 2019 | | VASCULAR SURGERY | [address] | appointment) | | | | [address] [place] | [place], [place] | | | | | [place], [place] | [address] | | | | | [address] | [phone] | | | | | [phone] | | | +--------+ + + + [...] [place] | | | | | | [address] | | | | | | | | +--------+---------+ + + + documented as of this encounter Visit Diagnoses Not on filedocumented in this encounter"
--- OUTSIDE RECORDS SUMMARY | ~2019-11-04 | XMS | Encounter Summary ---
Demographics + + + | Address | [address] | | | [place] [address] | + + + | Home Phone [...] Team Providers + +------+ + | Care Workforce Analyst Name | Role | Phone | + +------+ + | Rahul Silva MD | PCP | | + +------+ + Encounter Details +--------+ + + + + | Date | Type | Department | Care Team | Description | +--------+ + + + + | 03/01/ | Orders Only | [facility] | Conversion | | | 2019 | | NEPHROLOGY [place] | Transaction, | | | | | [address] | Provider Unknown | | | | | [address] [place] | | | | | | [address] | (Fax) | | | | | [phone] | | | +--------+ + + + [...] | | | | | | 160 [facility] | | | | | | [address] | | | | | | | [...] - 1.030 | EXTERNAL | | | [place] | | | LAB | | + [...] | | | LAB | | | [place] | | | | | + + [...]
--- OUTSIDE RECORDS SUMMARY | ~2019-11-04 | XMS | Encounter Summary ---
Demographics + + + | Address | [address] | | | [place] [address] | + + + | Home Phone [...] Team Providers + +------+ + | Care Otorhinolaryngologist Name | Role | Phone | + +------+ + | Rahul Silva MD | PCP | | + +------+ + Encounter Details +--------+ + + + + | Date | Type | Department | Care Team | Description | +--------+ + + + + | 08/13/ | Orders Only | [facility] | Farrukh Acuna MD | | | 2017 | | NEPHROLOGY [place] | [address] [place] | | | | | [address] [place] | [address] [place], [place] | | | | | [address] [place], [place] | [address] | | | | | [address] | | | | | | [phone] | | | +--------+ + + + [...] 2020 | Visit | | [address] [facility] | | | | | | 160 [place] | | | | | | [address] | | | | | | | [...] | | | LAB | | | [place] | | | | | + + [...]
--- OUTSIDE RECORDS SUMMARY | ~2019-11-04 | XMS | Encounter Summary ---
Demographics + + + | Address | [address] | | | [place] [address] | + + + | Home Phone [...] Team Providers + +------+ + | Care Puller Through Name | Role | Phone | + +------+ + | Rahul Silva MD | PCP | | + +------+ + Encounter Details +--------+ + + + + | Date | Type | Department | Care Team | Description | +--------+ + + + + | 05/27/ | Orders Only | [facility] | Conversion | | | 2019 | | NEPHROLOGY [place] | Transaction, | | | | | [address] | Provider Unknown | | | | | [address] [place] | | | | | | [address] | (Fax) | | | | | [phone] | | | +--------+ + + + [...] | | | | [address] [facility] | | | | | | [address] | | | | | | | [...]
--- OUTSIDE RECORDS SUMMARY | ~2019-11-04 | XMS | Encounter Summary ---
Demographics + + + | Address | [address] | | | [place] [address] | + + + | Home Phone [...] Team Providers + +------+ + | Care Used Car Lot Porter Name | Role | Phone | + +------+ + | Rahul Silva MD | PCP | | + +------+ + Encounter Details +--------+ + + + + | Date | Type | Department | Care Team | Description | +--------+ + + + + | 07/20/ | Orders Only | [facility] | Farruhk Acuna MD | Stage 4 chronic | | 2019 | | NEPHROLOGY [place] | [address] [place] | kidney disease (HCC) | | | | [address] | 160 [place], [place] | (Primary Dx); | | | | [address] | [address] | Persistent | | | | [place], [place] | | proteinuria; | | | | [address] | | Secondary | | | | [phone] | | hyperparathyroidism | | | | [...] | | | | | | [address] [place] | | | | | | [address] | | | | | | | [...]
--- OUTSIDE RECORDS SUMMARY | ~2019-11-04 | XMS | Encounter Summary ---
Demographics + + + | Address | [address] | | | [place] [address] | + + + | Home Phone [...] Providers + +------+ + | Care Performance Analyst Name | Role | Phone | [...] [address] [place] | [place], [place] | | | | | [place], [place] | [address] | | | | | [address] | [phone] | | | | | [phone] | | | +--------+ + + + [...] [place] | | | | | | [address] | | | | | | (Fax) | | +--------+---------+ + + + documented as of this encounter Visit Diagnoses Not on filedocumented in this encounter"
--- OUTSIDE RECORDS SUMMARY | ~2019-11-04 | XMS | Encounter Summary ---
Demographics + + + | Address | [address] | | | [place] [address] | + + + | Home Phone [...] Team Providers + +------+ + | Care Gravel Wheeler Name | Role | Phone | + +------+ + | Rahul Silva MD | PCP | | + +------+ + Encounter Details +--------+ + + + + | Date | Type | Department | Care Team | Description | +--------+ + + + + | 07/06/ | Orders Only | [facility] | Farrukh Acuna MD | | | 2018 | | NEPRHOLOGY [place] | [address] [place] | | | | | [address] [place] | 160 [place], [place] | | | | | [address] [place], [place] | [address] | | | | | [address] | | | | | | [phone] | | | +--------+ + + + [...] [place] | | | | | | [address] | | | | | | | [...]
--- OUTSIDE RECORDS SUMMARY | ~2019-11-04 | XMS | Encounter Summary ---
Demographics + + + | Address | [address] | | | [place] [address] | + + + | Home Phone [...] Providers + +------+ + | Care Medical Transport Specialist Name | Role | Phone | + +------+ + | Rahul Silva MD | PCP | | + +------+ + Encounter Details +--------+ + + + + | Date | Type | Department | Care Team | Description | +--------+ + + + + | 05/27/ | Orders Only | [facility] | Conversion | | | 2018 | | NEPRHOLOGY [place] | Transaction, | | | | | [address] | Provider Unknown | | | | | [address] [place], [place] | [phone] | | | | | [address] | (Fax) | | | | | [phone] | | | +--------+ + + + [...] SYSTEM[facility] | | | | | | [address] | | | | | | | [...]
--- OUTSIDE RECORDS SUMMARY | ~2019-11-04 | XMS | Encounter Summary ---
Demographics + + + | Address | [address] | | | [place] [address] | + + + | Home Phone [...] Providers + +------+ + | Care Die Technician Name | Role | Phone | + +------+ + | Rahul Silva MD | PCP | | + +------+ + Encounter Details +--------+ + + + + | Date | Type | Department | Care Team | Description | +--------+ + + + + | 07/20/ | Orders Only | [facility] | Farrukh Acuna MD | Anemia of chronic | | 2019 | | NEPHROLOGY [place] | [address] [place] | renal failure, stage | | | | [address] [place] | 160 [place], [place] | 4 (severe) (HCC) | | | | 160 [place], [place] | [address] | (Primary Dx); Stage | | | | [address] | | 4 chronic kidney | | | | [phone] | | disease (HCC); | | | [...] [place] | | | | | | [address] | | | | | | | [...]
--- OUTSIDE RECORDS SUMMARY | ~2019-11-04 | XMS | Encounter Summary ---
Demographics + + + | Address | [address] | | | [place] [address] | + + + | Home Phone [...] Providers + +------+ + | Care Last Scourer Name | Role | Phone | + [...] [address] Young | | | | | [place], [place] | [place], [place] | | | | | [address] | [address] | | | | | [phone] | [phone] | | | | | | | [...] | | | | | [address] [facility] | | | | | | [address] | | | | | | | [...]
--- OUTSIDE RECORDS SUMMARY | ~2019-11-04 | XMS | Encounter Summary ---
Demographics + + + | Address | [address] | | | [place] [address] | + + + | Home Phone [...] Providers + +------+ + | Care Garment Folder Name | Role | Phone | + +------+ + PCP | Unavailable | + +------+ + Encounter Details +--------+ + + + + | Date | Type | Department | Care Team | Description | +--------+ + + + + | 12/31/ | [facility] | [facility] | | | | 2000 | Encounter | MED CTR XRAY [address] | | | | | | [address] | | | | | | [place] [address] | | | | | | [phone] | | | +--------+ + + + [...] [place] | | | | | | [address] | | | | | | | | +--------+---------+ + + + documented as of this encounter Visit Diagnoses Not on filedocumented in this encounter"
--- OUTSIDE RECORDS SUMMARY | ~2019-11-04 | XMS | Encounter Summary ---
Demographics + + + | Address | [address] | | | [place] [address] | + + + | Home Phone [...] [place] | | | | | [address] | | + + + + + Care Team Providers + +------+ + | Care Pneumatic Jacketer Name | Role | Phone | + +------+ + PCP | Unavailable | + +------+ + Encounter Details +--------+ + + + + | Date | Type | Department | Care Team | Description | +--------+ + + + + | 12/22/ | Results | | Other, Faculty | | | 1997 | Only | | [phone] | | +--------+ + + + + [...] | | | | | | 12/22/96 [id number] hours. | | | | | | [...] | | + +---------+ + + | [facility] DEPARTMENT OF | | | | | [...] | | | | | | | [id number] | | | | | | SPINE, [...] | | + +---------+ + + | [facility] DEPARTMENT OF | | | | | RADIOLOGY | | | | + +---------+ + + documented in this encounter Visit Diagnoses Not on filedocumented in this encounter"
--- OUTSIDE RECORDS SUMMARY | ~2019-11-04 | XMS | Encounter Summary ---
Demographics + + + | Address | [address] | | | [place] [address] | + + + | Home Phone [...] Team Providers + +------+ + | Care Grinder Set Up Operator Centerless Name | Role | Phone | + [...] N Young | | | | | [place], [place] | [place], [place] | | | | | [address] | [address] | | | | | [phone] | [phone] | | | | | | | [...] 12/06/ | Office | Nephrology | Farrukh Acnua MD | | | 2020 | Visit | | [address] [facility] | | | | | | [address] [facility] | | | | | | [address] | | | | | | | [...]
--- OUTSIDE RECORDS SUMMARY | ~2019-11-04 | XMS | Encounter Summary ---
Demographics + + + | Address | [address] | | | [place] [address] | + + + | Home Phone [...] Providers + +------+ + | Care Director Manufacturing Engineering Name | Role | Phone | + [...] N Young | | | | | [place], [place] | [place], [place] | | | | | [address] | [address] | | | | | [phone] | [phone] | | | | | | | [...] 2020 | Visit | | [address] [facility] | | | | | | 160 [facility] | | | | | | [address] | | | | | | | [...]
--- OUTSIDE RECORDS SUMMARY | ~2019-11-04 | XMS | Encounter Summary ---
Demographics + + + | Address | [address] | | | [place] [address] | + + + | Home Phone [...] Team Providers + +------+ + | Care Sous Chef Kitchen Manager Name | Role | Phone | [...] N Young | | | | | [place], [place] | [place], [place] | | | | | [address] | [address] | | | | | [phone] | [phone] | | | | | | | [...] HOSPITAL[facility] | | | | | | [address] | | | | | | | [...]
--- OUTSIDE RECORDS SUMMARY | ~2019-11-04 | XMS | Encounter Summary ---
Demographics + + + | Address | [address] | | | [place] [address] | + + + | Home Phone [...] Providers + +------+ + | Care Chef Under Name | Role | Phone | + +------+ + | Rahul Silva MD | PCP | | + +------+ + Encounter Details +--------+ + + + + | Date | Type | Department | Care Team | Description | +--------+ + + + + | 09/07/ | Orders Only | [facility] | Farrukh Acuna MD | | | 2018 | | NEPRHOLOGY [place] | [address] | | | | | [address] [place] | 160 [place], [place] | | | | | 101 [place], [place] | [address] | | | | | [address] | | | | | | [phone] | | | +--------+ + + + [...] [place] | | | | | | [address] | | | | | | | [...]
--- OUTSIDE RECORDS SUMMARY | ~2019-11-04 | XMS | Encounter Summary ---
Demographics + + + | Address | [address] | | | [place] [address] | + + + | Home Phone [...] Providers + +------+ + | Care Continuous Still Operator Name | Role | Phone [...] N Young | | | | | [place], [place] | [place], [place] | | | | | [address] | [address] | | | | | [phone] | [phone] | | | | | | | [...] | | | | | | [address] [facility] | | | | | | [address] [...]
--- OUTSIDE RECORDS SUMMARY | ~2019-11-04 | XMS | Encounter Summary ---
Demographics + + + | Address | [address] | | | [place] [address] | + + + | Home Phone [...] Providers + +------+ + | Care Retail Sales Merchandiser Name | Role | Phone | [...] N Young | | | | | [place], [place] | [place], [place] | | | | | [address] | [address] | | | | | [phone] | [phone] | | | | | | | [...] HOSPITAL[facility] | | | | | | [address] | | | | | | | [...]
--- OUTSIDE RECORDS SUMMARY | ~2019-11-04 | XMS | Encounter Summary ---
Demographics + + + | Address | [address] | | | [place] [address] | + + + | Home Phone [...] Providers + +------+ + | Care Molding Cutter Name | Role | Phone | [...] | | | stage 5, GFR | [address] | | | | | | less than | Phone: | | | | | | 15 ml/min | [phone] | | | | | | ([facility]) | Fax: | | | | | | Procedures | [phone] | | | | | | VAS [...] + + | 10/20/ | Hospital | [facility] | Trisha Conner DNP | CKD (chronic kidney | | 2018 | Encounter | VASCULAR SURGERY | [address] | disease) stage 5, | | | | ULTRASOUND [address] | [place] [address] | GFR less than 15 | | | | [place] | [address] | ml/min (HCC) | | | | [place], [place] | | | | | | [address] | | | | | | [phone] | | | +--------+ + + + [...] Daily. | tablet | | 19 | | | tablet [...] under | 0.3 mL | 11 | 11//20 | | | (ARANESP, ALBUMIN | the skin Every 30 | | | 19 | | | FREE,) 60 mcg/0.3 mL | [...] [place]) | | | | | | + [...] + +---------+ + + | LANJuan PabloUS SOLOSTAR | Inject 25 [...] mg by mouth | | 1 | 02/17/ | | | (DEMADEX) 20 mg | Daily. | | | 19 | | | tablet | | | | | | + + + +---------+ + + | VENTOLIN HFA 108 | inhale 2 puffs by | | 0 | /02/17 | | | (90 Base) MCG/ACT | [...] | | | | | | [address] [facility] | | | | | | [address] | | | | | | | [...] | | | | Signed by: Idris Wilson, Fabian | | Sign Date/Time: 10/21/2019 8:17 AM [...]
--- OUTSIDE RECORDS SUMMARY | ~2019-11-04 | XMS | Encounter Summary ---
Demographics + + + | Address | [address] | | | [place] [address] | + + + | Home Phone [...] Team Providers + +------+ + | Care Donor Floor Technician Name | Role | Phone | + +------+ + | Rahul Silva MD | PCP | | + +------+ + Encounter Details +--------+ + + + + | Date | Type | Department | Care Team | Description | +--------+ + + + + | 10/08/ | Orders Only | [facility] | Farrukh Acuna MD | | | 2018 | | NEPHROLOGY [place] | [address] [place] | | | | | [address] [place] | [address] [place], [place] | | | | | [address] [place], [place] | [address] | | | | | [address] | | | | | | [phone] | | | +--------+ + + + [...] [place] | | | | | | [address] | | | | | | | [...] | | | LAB | | | [facility] | | | | | + + [...]
--- OUTSIDE RECORDS SUMMARY | ~2019-11-04 | XMS | Encounter Summary ---
Demographics + + + | Address | [address] | | | [place] [address] | + + + | Home Phone [...] Providers + +------+ + | Care Product Marketing Specialist Name | Role | Phone | + +------+ + | Rahul Silva MD | PCP | | + +------+ + Encounter Details +--------+ + + + + | Date | Type | Department | Care Team | Description | +--------+ + + + + | 12/19/ | Orders Only | [facility] | Conversion | | | 2016 | | NEPHROLOGY [place] | Transaction, | | | | | [address] | Provider Unknown | | | | | [address] [place] | | | | | | [address] | (Fax) | | | | | [phone] | | | +--------+ + + + [...] | | | | | [address] [facility] | | | | | | [address] | | | | | | | [...]
--- OUTSIDE RECORDS SUMMARY | ~2019-11-04 | XMS | Encounter Summary ---
Demographics + + + | Address | [address] | | | [place] [address] | + + + | Home Phone [...] Team Providers + +------+ + | Care Dramatic Teacher Name | Role | Phone | [...] [address] | | | | | [place], [place] | [place], [place] | | | | | [address] | [address] | | | | | [phone] | [phone] | | | | | | | [...] | | | | | | [address] [facility] | | | | | | [address] | | | | | | | [...]
--- OUTSIDE RECORDS SUMMARY | ~2019-11-04 | XMS | Encounter Summary ---
Demographics + + + | Address | [address] | | | [place] [address] | + + + | Home Phone [...] Providers + +------+ + | Care Textile Technical Officer Name | Role | Phone | + +------+ + | Rahul Silva MD | PCP | | + +------+ + Encounter Details +--------+ + + + + | Date | Type | Department | Care Team | Description | +--------+ + + + + | 10/05/ | Orders Only | [facility] | Farrukh Acuna MD | Essential | | 2019 | | NEPHROLOGY [place] | [address] [place] | hypertension | | | | [address] | [address] [facility] [place] | (Primary Dx); Iron | | | | [address] | [address] | deficiency; | | | | [place], [place] | | Secondary | | | | [address] | | hyperparathyroidism | | | | [phone] | | (HCC); CKD (chronic | | [...] | | | | | | [address] [facility] | | | | | | [address] | | | | | | | [...]
--- OUTSIDE RECORDS SUMMARY | ~2019-11-04 | XMS | Encounter Summary ---
Demographics + + + | Address | [address] | | | [place] [address] | + + + | Home Phone [...] Team Providers + +------+ + | Care Crime Scene Specialist Name | Role | Phone | [...] [address] | | | | | [place], [place] | [place], [place] | | | | | [address] | [address] | | | | | [phone] | [phone] | | | | | | | [...] | Visit | | [address] [facility] | | | | | | [address] [facility] | | | | | | [address] | | | | | | | [...]
--- OUTSIDE RECORDS SUMMARY | ~2019-11-04 | XMS | Encounter Summary ---
Demographics + + + | Address | [address] | | | [place] [address] | + + + | Home Phone [...] Providers + +------+ + | Care Line Construction Engineer Name | Role | Phone | + +------+ + PCP | Unavailable | + +------+ + Encounter Details +--------+ + + + + | Date | Type | Department | Care Team | Description | +--------+ + + + + | 08/02/ | [facility] | [facility] | Nelson Lutz MD | | | 1991 | Encounter | MED CTR GENERIC OP | [address], [place] | | | | | CONV DEPT [address] | [address] [place] | | | | | [place], | [address] | | | | | [place] [address] | | | | | | [phone] | | | +--------+ + + + [...] 2020 | Visit | | [address] [facility] | | | | | | [address] [place] | | | | | | [address] | | | | | | | | +--------+---------+ + + + documented as of this encounter Visit Diagnoses Not on filedocumented in this encounter"
--- OUTSIDE RECORDS SUMMARY | ~2019-11-04 | XMS | Encounter Summary ---
Demographics + + + | Address | [address] | | | [place] [address] | + + + | Home Phone [...] [place] | | | | | [address] | | + + + + + Care Team Providers + +------+ + | Care Cinetechnician Name | Role | Phone | + +------+ + PCP | Unavailable | + +------+ + Encounter Details +--------+ + + + + | Date | Type | Department | Care Team | Description | +--------+ + + + + | 12/28/ | Procedure - | Digestive Health | Record, Operation | Operative Report | | 1996 | | [facility] | | | | | Transcribed | Ruben Linares | | | | | | Mailcode: [place] | | | | | | [facility] | | | | | | Healing, Building 2 | | | | | | [facility] [place] | | | | | | [address] | | | | | | [phone] | | | +--------+ + + + [...] | + + | 12/28/1996 12:00 AM [facility] | | [facility] | | [address], [place] [address] | | [facility] | | | | OPERATION RECORD | | | | Med Rec No.: [id number] Date: 12/28/96 | | | | Name: Mehran Andujarald Arturo | | | | | | ATTENDING SURGEON: Robert Carlson M.D. | | Professor, | | Vascular Surgery | | | | SAS DEVELOPER ANALYST(S): Nick Noriega M.D. | | Spine Surgeon, General Surgery | | | | POSTOPERATIVE DIAGNOSIS(ES): Left stump osteophyte. | | | | OPERATION(S) PERFORMED: Revision of left mpzql-sij-tjhd amputation | | and excision of stump osteophyte. | | | | SPECIMEN(S) REMOVED: 1. Swab of pseudocapsule for culture. | | 2. Osteophyte to Pathology. | | | | ANESTHESIA: General endotracheal anesthesia. | | | | INDICATIONS: The patient is a 56-year-old white male who | | is status post left vzglj-vex-sohf | | amputation three years ago secondary | | to embolus. He has developed pain over the stump. A recent CT scan showed | | an osteophyte growing on the end of the stump. | | | | PROCEDURE: The patient was taken to the Operating Room. | | General endotracheal anesthesia was | | performed by Anesthesia. The | | left abhhr-jnk-ecsk amputation stump was sterilely prepped and draped [...] | | Nick Noriega M.D. | | Spine Surgeon, General Surgery | | Robert Carlson M.D. | | Professor, | | Vascular Surgery | | | | DOMINIC/jc | | | | A | | | | cc: | | | + + documented in this encounter Visit Diagnoses Not on filedocumented in this encounter"
--- OUTSIDE RECORDS SUMMARY | ~2019-11-04 | XMS | Encounter Summary ---
Demographics + + + | Address | [address] | | | [place] [address] | + + + | Home Phone [...] Team Providers + +------+ + | Care Boarder Machine Name | Role | Phone | + +------+ + | Rahul Silva MD | PCP | | + +------+ + Encounter Details +--------+ + + + + | Date | Type | Department | Care Team | Description | +--------+ + + + + | 02/12/ | Orders Only | [facility] | Farrukh Acuna MD | | | 2018 | | NEPHROLOGY [place] | [address] [place] | | | | | [address] [place] | [address] [place], [place] | | | | | [address] [place], [place] | [address] | | | | | [address] | | | | | | [phone] | | | +--------+ + + + [...] 2020 | Visit | | [address] [address] [facility] | | | | | | [address] [place] | | | | | | [address] | | | | | | | [...] | | | LAB | | | CZECH | | | | | + + [...]
--- OUTSIDE RECORDS SUMMARY | ~2019-11-04 | XMS | Encounter Summary ---
Demographics + + + | Address | [address] | | | [place] [address] | + + + | Home Phone [...] Team Providers + +------+ + | Care Construction Administrator Name | Role | Phone | [...] | | | stage 5, GFR | [address] | | | | | | less than | Phone: | | | | | | 15 ml/min | [phone] | | | | | | (HCC) | Fax: | | | | | | Procedures | [phone] | | | | | | VAS [...] + + | 10/20/ | Office | [facility] | Trisha Conner DNP | CKD (chronic kidney | | 2019 | Visit | VASCULAR SURGERY | [address] | disease) stage 5, | | | | [address] [place] | [place], [place] | GFR less than 15 | | | | [place], [place] | [address] | ml/min (HCC) | | | | [address] | | (Primary Dx); AVF | | | | [phone] | | (arteriovenous | | | | [...] Trisha Conner DNP - 10/20/2019 2:30 PM [facility] [address] [place] [address] Office: [phone] DATE OF VISIT: 10/20/2019 PATIENT NAME: Kavon Andujar : 1940; AGE: 79 y.o.; Sex:M PHONE NUMBER: ; ; PROVIDER: Trisha Conner DNP PRIMARY CARE / REFERRING PHYSICIAN: No ref. provider found / Rahul Silva MD / [address] [facility] / [place] [address] REASON FOR EVALUATION / CHIEF COMPLAINT: Vascular Surgery Postoperative Visit for AVF creation The patient presents today for a Vascular Surgery Postoperative Visit. The patient is statu s post right brachiocephalic AVF creation, which was performed on 09/10/2019 at the [facility] Operating [facility]. The patient is not having any pain. The patient denie s fever, wound drainage, increasing redness, pus, increasing pain, increasing swelling. Phys ical examination revealed surgical incision is healed. He has good thrills over the AVF site . Patient's punch press feeder is Dr. Acuna. The patient is not [...] 2019 | Visit | | [address] [facility] | | | | | | [address] [place], [place] | | | | | | [address] | | | | | | | [...] GFR less than 15 ml/min ([facility]) - Primary Chronic | | kidney disease, Stage V | + + | AVF (arteriovenous fistula) ([facility]) Arteriovenous fistula, acquired | + + documented in this encounter"
--- OUTSIDE RECORDS SUMMARY | ~2019-11-04 | XMS | Encounter Summary ---
Demographics + + + | Address | [address] | | | [place] [address] | + + + | Home Phone [...] Team Providers + +------+ + | Care Truss Driver Helper Name | Role | Phone | + +------+ + | Rahul Silva MD | PCP | | + +------+ + Encounter Details +--------+ + + + + | Date | Type | Department | Care Team | Description | +--------+ + + + + | 10/27/ | Orders Only | [facility] | Conversion | | | 2016 | | NEPHROLOGY [place] | Transaction, | | | | | [address] | Provider Unknown | | | | | [address] [place] | | | | | | [address] | (Fax) | | | | | [phone] | | | +--------+ + + + [...] 2020 | Visit | | [address] [facility] | | | | | | [address] [facility] | | | | | | [address] | | | | | | | [...]
--- OUTSIDE RECORDS SUMMARY | ~2019-11-04 | XMS | Encounter Summary ---
Demographics + + + | Address | [address] | | | [place] [address] | + + + | Home Phone [...] Team Providers + +------+ + | Care Knowledge Management Consultant Name | Role | Phone [...] [address] | | | | | [place], [place] | [place], [place] | | | | | [address] | [address] | | | | | [phone] | [phone] | | | | | | | [...] [place] | | | | | | [address] | | | | | | | [...]
--- OUTSIDE RECORDS SUMMARY | ~2019-11-04 | XMS | Encounter Summary ---
Demographics + + + | Address | [address] | | | [place] [address] | + + + | Home Phone [...] Providers + +------+ + | Care Physics Professor Name | Role | Phone | [...] + + | 10/04/ | Documentati | [facility] | Simon, | Results (09/30/19) | | 2019 | on | NEPHROLOGY [place] | [facility] | | | | | [address] | Vine Fruit Farming Supervisor | | | | | [address] | | | | | | [place] | | | | | | [address] | | | | | | [phone] | | | +--------+ + + + [...] [place] | | | | | | [address] | | | | | | (Fax) [...]
--- OUTSIDE RECORDS SUMMARY | ~2019-11-04 | XMS | Encounter Summary ---
Demographics + + + | Address | [address] | | | [place] [address] | + + + | Home Phone [...] Team Providers + +------+ + | Care Collar Pointer Name | Role | Phone | + +------+ + | Rahul Silva MD | PCP | | + +------+ + Encounter Details +--------+ + + + + | Date | Type | Department | Care Team | Description | +--------+ + + + + | 04/10/ | Orders Only | [facility] | Conversion | | | 2014 | | NEPRHOLOGY [place] | Transaction, | | | | | [address] | Provider Unknown | | | | | [address] [place], [place] | | | | | | [address] | (Fax) | | | | | [phone] | | | +--------+ + + + [...] [place] | | | | | | [address] | | | | | | | [...]
--- OUTSIDE RECORDS SUMMARY | ~2019-11-04 | XMS | Encounter Summary ---
Demographics + + + | Address | [address] | | | [place] [address] | + + + | Home Phone [...] [place] | | | | | [address] | | + + + + + Care Team Providers + +------+ + | Care Scudding Inspector Name | Role | Phone | + +------+ + PCP | Unavailable | + +------+ + Encounter Details +--------+ + + + + | Date | Type | Department | Care Team | Description | +--------+ + + + + | 06/07/ | Transcribed | All[facility] Clinic at | [facility] | Transcribed | | 1996 | | [facility] [address] | | | | | | [address] | | | | | | Mailcode: OP34 [address]if[address] | | | | | | [address] | | | | | | [place], | | | | | | [place] [address] | | | | | | [phone] | | | +--------+ + + + [...] as of this encounter Progress Notes Interface, Prosthetics Lab Technician In - 01/22/2007 3:04 AM PST [address] [address] or June 07, 1997 Pravin VALLES MD [address] [place] [address] [place] [address] RE:Kavon Andujar MR#:[id number] Valles: I saw Kavon Andujar in the Neurology Clinic today and have enclosed a copy of my note. 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 He also [...] over the telephone. Sincerely, Michelle Landon M.D. Youth Services Specialist, Neurology JINNY/ C: 06/13/97 cc: Alina Moise M.D. Division of Neurosurgery [facility] Robert Carlson M.D. Division of Vascular Surgery [facility] documented in this encounter Plan of Treatment Not on filedocumented as of this encounter Visit Diagnoses Not on filedocumented in this encounter
--- OUTSIDE RECORDS SUMMARY | ~2019-11-04 | XMS | Encounter Summary ---
Demographics + + + | Address | [address] | | | [place] [address] | + + + | Home Phone [...] Providers + +------+ + | Care Corporate Treasurer Name | Role | Phone | + [...] [place], [place] | | | | | [address] | [address] | | | | | [place], [place] | [phone] | | | | | [address] | | | | | | [phone] | | | +--------+ + + + [...] 2020 | Visit | | [address] [facility] | | | | | | [address] [place] | | | | | | [address] | | | | | | | | +--------+---------+ + + + documented as of this encounter Visit Diagnoses Not on filedocumented in this encounter"
--- OUTSIDE RECORDS SUMMARY | ~2019-11-04 | XMS | Encounter Summary ---
Demographics + + + | Address | [address] | | | [place] [address] | + + + | Home Phone [...] Team Providers + +------+ + | Care Kettle Operator Name | Role | Phone | [...] | | | | | ([facility]) | | | | | | | [...] + + | 09/10/ | Hospital | [facility] | Brian Orosco MD | CKD (chronic kidney | | 2019 | Encounter | [facility] | [address] | disease) stage 5, | | | | OPERATING ROOM [address] | [place], [place] | GFR less than 15 | | | | [address] | [address] | ml/min ([facility]) | | | | [place], [place] | [phone] | | | | | [address] | | | | | | [phone] | | | +--------+ + + + [...] dialysis shunt, please contact your ysician at [phone]. Discharge instructions for Diagnostic Imaging sedation patients [...] Anexsia, Lorcet, Lorcet HD, Lorcet Plus, Lortab, Chestnut [place], Verdrocet, Vicodin, Vi codin ES, Vicodin HP, [...] information carefully each time. Talk to your head of precision targeting regarding the use of this medicine in children. Special care may be needed. What side effects may I notice from receiving this medicine? Side effects that you should report to your doctor or health furnace caretaker as soon as p ossible: allergic [...] attention (report to your doctor or health furnace caretaker if they continue or are bothersome): [...] to an official disposal site. Contact the [facility] at [phone] or your [facility] to find a site. If you [...] this medicine? Tell your doctor or health furnace caretaker if your pain does not go [...] cuts, scrapes, or blows. Date Last Reviewed: 12/01/201619996661-1801 [employer]. [address] [place], [place] [address]. All righ ts reserved. This information is [...] | | | | | ([facility]), Secondary | | | | | | | hyperparathyroidism | | | | | | | ([facility]) | | | | | | + [...] and bl ood clots prevention. Prescription for Chestnut Hill given and side effects were explained. Patient states that he also takes oxycodone at home; patient and his family were educated about taki ng oxycodone or Chestnut Hill only and not both. OTC Tylenol intake [...] | | | | | [address] [place], [place] | | | | | | [address] | | | | | | | [...] Testing | 65 - 99 mg/dL | [facility] | | | POC | performed at [facility];[address] | | LABORATORY | | | | [address];[place] | | | | | | [address] | | | | + + + + + + + + | Specimen | + + | | + + + + + + + | Performing | Address | City/State/Zipcode | Phone Number | | Organization | | | | + + + + + | [facility] | [address] | [place] [address] | [phone] | + + + + + POC [...] | | | POC | performed at [facility];[address] | | LABORATORY | | | | [address];[place], [place] | | | | | | [address] | | | | + + + + + + + + | Specimen | + + | | + + + + + + + | Performing | Address | City/State/Zipcode | Phone Number | | Organization | | | | + + + + + | [facility] | [address] | [place] [address] | [phone] | + + + + + documented [...] less than 15 ml/min ([facility]) Chronic kidney | | disease, Stage V [...] One week or | | | longer, xtnwfc-uuu-nvekd use of | | | at least [...]
--- OUTSIDE RECORDS SUMMARY | ~2019-11-04 | XMS | Encounter Summary ---
Demographics + + + | Address | [address] | | | [place] [address] | + + + | Home Phone [...] Providers + +------+ + | Care Assistant Business Manager Name | Role | Phone [...] | Transaction, | | | | | [place], [place] | Provider Unknown | | | | | [address] | | | | | | [phone] | | | +--------+ + + + [...] [place] | | | | | | [address] | | | | | | | [...]
--- OUTSIDE RECORDS SUMMARY | ~2019-11-04 | XMS | Encounter Summary ---
Demographics + + + | Address | [address] | | | [place] [address] | + + + | Home Phone [...] [place] | | | | | [address] | | + + + + + Care Team Providers + +------+ + | Care Batch Blender Name | Role | Phone | + +------+ + PCP | Unavailable | + +------+ + Encounter Details +--------+ + + + + | Date | Type | Department | Care Team | Description | +--------+ + + + + | 12/28/ | Procedure - | Digestive Health | Record, Operation | Operative Report | | 1996 | | [facility] [address] | | | | | Transcribed | Ruben Linares | | | | | | Mailcode: [facility] | | | | | | [facility] | | | | | | Healing, Building [address] | | | | | | [facility] [place] | | | | | | [address] | | | | | | [phone] | | | +--------+ + + + [...] | + + | 12/28/1996 12:00 AM [facility] | | [facility] | | [address] [place], [place] [address] | | [facility] | | | | OPERATION RECORD | | | | Med Rec No.: [id number] Date: 12/28/96 | | | | Name: Mehran Andujarald Arturo | | | | | | ATTENDING SURGEON: Robert Carlson M.D. | | Professor, | | Vascular Surgery | | | | REGISTERED NURSE FIRST ASSISTANT(S): Nick Noriega M.D. | | Windows Desktop Support, General Surgery | | | | POSTOPERATIVE DIAGNOSIS(ES): Left stump osteophyte. | | | | OPERATION(S) PERFORMED: Revision of left rwkba-fvj-xrmi amputation | | and excision of stump osteophyte. | | | | SPECIMEN(S) REMOVED: 1. Swab of pseudocapsule for culture. | | 2. Osteophyte to Pathology. | | | | ANESTHESIA: General endotracheal anesthesia. | | | | INDICATIONS: The patient is a 56-year-old white male who | | is status post left rkayh-ymw-alzy | | amputation three years ago secondary | | to embolus. He has developed pain over the stump. A recent CT scan showed | | an osteophyte growing on the end of the stump. | | | | PROCEDURE: The patient was taken to the Operating Room. | | General endotracheal anesthesia was | | performed by Anesthesia. The | | left zecdu-xlf-mtsj amputation stump was sterilely prepped and draped [...] | | Nick Noriega M.D. | | Windows Desktop Support, General Surgery | | Robert Carlson M.D. | | Professor, | | Vascular Surgery | | | | DOMINIC/jc | | | | A | | | | cc: | | | + + documented in this encounter Visit Diagnoses Not on filedocumented in this encounter"
--- OUTSIDE RECORDS SUMMARY | ~2019-11-04 | XMS | Encounter Summary ---
Demographics + + + | Address | [address] | | | [place] [address] | + + + | Home Phone [...] Providers + +------+ + | Care Bridge Instructor Name | Role | Phone | [...] | Transaction, | | | | | [place], [place] | Provider Unknown | | | | | [address] | | | | | | [phone] | | | +--------+ + + + [...] [place] | | | | | | [address] | | | | | | | [...]
--- OUTSIDE RECORDS SUMMARY | ~2019-11-04 | XMS | Encounter Summary ---
Demographics + + + | Address | [address] | | | [place] [address] | + + + | Home Phone [...] Team Providers + +------+ + | Care Lean Manufacturing Leader Name | Role | Phone | + +------+ + | Rahul Silva MD | PCP | | + +------+ + Encounter Details +--------+ + + + + | Date | Type | Department | Care Team | Description | +--------+ + + + + | 11/27/ | Orders Only | [facility] | Conversion | | | 2017 | | NEPHROLOGY [place] | Transaction, | | | | | [address] | Provider Unknown | | | | | [address] [place] [address] | | | | | | [address] | (Fax) | | | | | [phone] | | | +--------+ + + + [...] | | | | | | [facility] | | | | | | [address] | | | | | | | [...] | | | LAB | | | [place] | | | | | + + [...]
--- OUTSIDE RECORDS SUMMARY | ~2019-11-04 | XMS | Encounter Summary ---
Demographics + + + | Address | [address] | | | [place] [address] | + + + | Home Phone [...] Team Providers + +------+ + | Care Evs Attendant Name | Role | Phone | + +------+ + | Rahul Silva MD | PCP | | + +------+ + Encounter Details +--------+ + + + + | Date | Type | Department | Care Team | Description | +--------+ + + + + | 02/24/ | Orders Only | [facility] | Conversion | | | 2016 | | NEPHROLOGY CONNIE | Transaction, | | | | | [address] | Provider Unknown | | | | | [address] [place] [address] | | | | | | [address] | (Fax) | | | | | [phone] | | | +--------+ + + + [...] | | | | | | [address] [facility] | | | | | | [address] | | | | | | | [...] - 1.030 | EXTERNAL | | | [place] | | | LAB | | + [...] | | | LAB | | | EQUATORIAL GUINEAN | | | | | + [...]
--- OUTSIDE RECORDS SUMMARY | ~2019-11-04 | XMS | Clinical Summary ---
Demographics + + + | Address | [address] | | | [place] [address] | + + + | Home Phone | | + + + | Preferred Language | Unknown | + + + | Marital Status | | + + + | Religion Affiliation | 1077 | + + + | Race | Unknown | + + + | Ethnic Group | Unknown | + + + Author + + + | Author | [employer] [facility] (Historical as of | | | 07-17-19) | + + + | Organization | [facility] (Historical as of | | | 07-17-19) [...] Providers + +------+ + | Care Manufacturing Accountant Name | Role | Phone | [...] | | | | 4 (severe) ([facility]), | | | | | | | [...] Last Assessment & Plan: Controlled on current [id number] yr | | old male with COPD, [...] +------+-------+ + | MEDICARE | MEDICA | [id number] | | | [address] | | | RE | | | | [place], [place] [address] | | | IP-OP | | | | | + +--------+ +------+-------+ + | MEDICAID | EASTER | [id number] | | | [address] | | | N | | | | [place], [place] | | | [place] | | | | [address] | | | FASHION MARKETER | | | | | + +--------+ [...] | | al/Fam | | 1940 | [phone] | [place], [place] | | | chula | | | 8709 | [address] | + +--------+ +--------+ + +
--- OUTSIDE RECORDS SUMMARY | ~2019-11-04 | XMS | Encounter Summary ---
Demographics + + + | Address | [address] | | | [place] [address] | + + + | Home Phone [...] Providers + +------+ + | Care Hot Bread Baker Name | Role | Phone | + +------+ + | Rahul Silva MD | PCP | | + +------+ + Encounter Details +--------+ + + + + | Date | Type | Department | Care Team | Description | +--------+ + + + + | 07/20/ | Orders Only | [facility] | Farrukh Acuna MD | Anemia of chronic | | 2019 | | NEPHROLOGY [place] | [address] [place] | renal failure, stage | | | | [address] [place] | [address] [place], [place] | 4 (severe) (HCC) | | | | [address] [place], [place] | [address] | (Primary Dx); Stage | | | | [address] | | 4 chronic kidney | | | | [phone] | | disease (HCC); | | | [...] | | | | [address] [facility] | | | | | | [address] | | | | | | | [...]
--- OUTSIDE RECORDS SUMMARY | ~2019-11-04 | XMS | Encounter Summary ---
Demographics + + + | Address | [address] | | | [place] [address] | + + + | Home Phone [...] [place] | | | | | [address] | | + + + + + Care Team Providers + +------+ + | Care Newscast Director Name | Role | Phone | [...] [address] | | | | | | [place], [place] | | | | | | [address] | | | | | | [phone] | | | +--------+ + + + [...] of this encounter Progress Notes Interface, Supervisor Paint In - 01/03/2007 5:08 AM PST CLINIC DATE: 12/22/97 Mr. Andujar is referred by Dr. Jerry Smiley in the [place] area. He is currently followed by the Anesthesia Pain Service at [facility], and also recently has been [...] under Dr. Robert Carlson's supervision here at [facility]. His pain continued, exacerbated by [...] procedure at this time. Eric Mcclure M.D. Bridal Consultant, Department of Orthopaedics and Rehabilitation AY/sara A cc: Jerry Smiley M.D. (with letter) [address] [place] [address] [address] [place] [address] Robert Carlson M.D. FAX: [phone] Alina Moise M.D. FAX: [phone] [facility] ClinicFAX: [phone] documented in this encounter Plan of Treatment Not on filedocumented as of this encounter Visit Diagnoses Not on filedocumented in this encounter
--- OUTSIDE RECORDS SUMMARY | ~2019-11-04 | XMS | Encounter Summary ---
Demographics + + + | Address | [address] | | | [place] [address] | + + + | Home Phone [...] Providers + +------+ + | Care Industrial Fabric Cutter Name | Role | Phone | [...] | OPER[address] RO[address] | [place], [place] | | | | | [address] | [address] | | | | | [place], [place] | [phone] | | | | | [address] | | | | | | [phone] | | | +--------+ + + + [...] 2020 | Visit | | [address] [facility] | | | | | | [address] [place] | | | | | | [address] | | | | | | | | +--------+---------+ + + + documented as of this encounter Visit Diagnoses Not on filedocumented in this encounter"
--- OUTSIDE RECORDS SUMMARY | ~2019-11-04 | XMS | Encounter Summary ---
Demographics + + + | Address | [address] | | | [place] [address] | + + + | Home Phone [...] Author + + + | Author | [facility] | + + + | Organization | [facility] | + + + | Address | Unknown | + + + | Phone | Unavailable | + + + Support + + + + + | Name | Relationship | Address | Phone | + + + + + | Darci Andujar | VALERIE | [place] | | | | | [address] | | + + + + + Care Team Providers + +------+ + | Care Piano Assembler Name | Role | Phone | [...] Clinic | | | | | | [facility], [address] | | | | | | [place], [place] | | | | | | [address] | | | | | | [phone] | | | +--------+ + + + [...] as of this encounter Progress Notes Interface, Cnc Wood Lathe Operator In - 01/09/2007 5:07 AM PST CLINIC DATE: 10/03/97 [facility] - PROGRESS NOTE [...] Vargas D.O. Resident, Anesthesiology Nelson Melara M.D. Bottling Machine Operator, Anest[facility] KAYLEENM/madelinev cc: [place] [address] JESSENIA RODRIGUEZ MD DEPARTMENT OF FAMILY MEDICINE [facility] documented in this encounter Plan of Treatment Not on filedocumented as of this encounter Visit Diagnoses Not on filedocumented in this encounter"
--- OUTSIDE RECORDS SUMMARY | ~2019-11-04 | XMS | Encounter Summary ---
Demographics + + + | Address | [address] | | | [place] [address] | + + + | Home Phone [...] Team Providers + +------+ + | Care Houseperson Name | Role | Phone | + +------+ + PCP | Unavailable | + +------+ + Encounter Details +--------+ + + + + | Date | Type | Department | Care Team | Description | +--------+ + + + + | 07/18/ | [facility] | [facility] | Nelson Lutz MD | | | 2002 | Encounter | MED CTR GENERIC OP | [address] [place] | | | | | CONV DEPT [address] | [address] [place] | | | | | [place] [place], | [address] | | | | | [place] [address] | | | | | | [phone] | | | +--------+ + + + [...] | | | | | | [address] [place] | | | | | | [address] | | | | | | | | +--------+---------+ + + + documented as of this encounter Visit Diagnoses Not on filedocumented in this encounter"
--- OUTSIDE RECORDS SUMMARY | ~2019-11-04 | XMS | Encounter Summary ---
Demographics + + + | Address | [address] | | | [place] [address] | + + + | Home Phone [...] Team Providers + +------+ + | Care Coupon Redemption Clerk Name | Role | Phone | [...] | Transaction, | | | | | [place], [place] | Provider Unknown | | | | | [address] | | | | | | [phone] | | | +--------+ + + + [...] [place] | | | | | | [address] | | | | | | | [...]
--- OUTSIDE RECORDS SUMMARY | ~2019-11-04 | XMS | Encounter Summary ---
Demographics + + + | Address | [address] | | | [place] [address] | + + + | Home Phone [...] Providers + +------+ + | Care Supervisor Vegetable Farming Name | Role | Phone | + +------+ + | Rahul Silva MD | PCP | | + +------+ + Encounter Details +--------+ + + + + | Date | Type | Department | Care Team | Description | +--------+ + + + + | 07/27/ | Orders Only | [facility] | Farrukh Acuna MD | Chronic kidney | | 2019 | | NEPHROLOGY [place] | [address] [place] | disease, stage IV | | | | [address] [place] | [address] [place], [place] | (severe) (HCC); | | | | [address] [place], [place] | [address] | Chronic kidney | | | | [address] | | disease, stage IV | | | | [phone] | | (severe) (HCC); | | | [...] [place] | | | | | | [address] | | | | | | | [...]
--- OUTSIDE RECORDS SUMMARY | ~2019-11-04 | XMS | Encounter Summary ---
Demographics + + + | Address | [address] | | | [place] [address] | + + + | Home Phone [...] Providers + +------+ + | Care Senior Financial Name | Role | Phone | + [...] Young | | | | | [place], [place] | [place], [place] | | | | | [address] | [address] | | | | | [phone] | [phone] | | | | | | | [...] | | | | | [address] [facility] | | | | | | [address] | | | | | | | [...]
--- OUTSIDE RECORDS SUMMARY | ~2019-11-04 | XMS | Encounter Summary ---
Demographics + + + | Address | [address] | | | [place] [address] | + + + | Home Phone [...] Team Providers + +------+ + | Care Final Touch Up Painter Name | Role | [...] + + | 08/13/ | Telephone | [facility] | Farrukh Acuna MD | Other (lab result) | | 2019 | | NEPRHOLOGY [place] | [address] [facility] [address] | | | | | [address] | [address] [place], [place] | | | | | [address] [place], [place] | [address] | | | | | [address] | | | | | | [phone] | | | +--------+ + + + [...] [place] | | | | | | [address] | | | | | | | | +--------+---------+ + + + documented as of this encounter Visit Diagnoses Not on filedocumented in this encounter"
--- OUTSIDE RECORDS SUMMARY | ~2019-11-04 | XMS | Clinical Summary ---
Demographics + + + | Address | [address] | | | [place] [address] | + + + | Home Phone [...] | Author | [facility] | + + + | Organization | [facility] | + + + | Address | Unknown | + + + | Phone | Unavailable | + + + Support + + + + + | Name | Relationship | Address | Phone | + + + + + | Darci Andujar | VALERIE | [place] | | | | | [address] | | + + + + + Care Team Providers + +------+ + | Care Coutierier Name | Role | Phone | + +------+ + | Rahul Silva MD | PCP | | + +------+ + Source Comments DAKOTA is fully live on both [facility] Ambulatory and [facility] InPatient.[facility] Allergies No Known Allergies Medications + + [...]
--- OUTSIDE RECORDS SUMMARY | ~2019-11-04 | XMS | Encounter Summary ---
Demographics + + + | Address | [address] | | | [place] [address] | + + + | Home Phone [...] [place] | | | | | [address] | | + + + + + Care Team Providers + +------+ + | Care Client Director Name | Role | Phone | [...] Note | | 2000 | Visit-Trans | [address] | [phone] | | | | [address] | [address] | | | | | | [place], [place] | | | | | | [address] | | | +--------+ + + + [...] recommend that he see one of our rn documentation specialist for further evaluation, and he did appear interested in doing that. 2. Referral to Dr. Willis in Orthopedics. Yuriy Huang M.D. trauma nurse HOSEAL / [id number] / [id number] / [id number] / [id number] C: 01/23/2001 nw documented in this encounter Plan of Treatment Not on filedocumented as of this encounter Visit Diagnoses Not on filedocumented in this encounter"
--- OUTSIDE RECORDS SUMMARY | ~2019-11-04 | XMS | Encounter Summary ---
Demographics + + + | Address | [address] | | | [place] [address] | + + + | Home Phone [...] [place] | | | | | [address] | | + + + + + Care Team Providers + +------+ + | Care Information Support Project Manager Name | Role | Phone | + +------+ + PCP | Unavailable | + +------+ + Encounter Details +--------+ + + + + | Date | Type | Department | Care Team | Description | +--------+ + + + + | 06/07/ | Transcribed | Allergy Clinic at | [facility] | Transcribed | | 1996 | | [facility] [address] | | | | | | [address] | | | | | | Mailcode: OP34 [address] | | | | | | [address] [place] | | | | | | [place], | | | | | | [place] [address] | | | | | | [phone] | | | +--------+ + + + [...] as of this encounter Progress Notes Interface, Flue Blower In - 01/22/2007 3:04 AM PST [address] [address] or June 07, 1997 Pravin VALLES MD [address] [place] [address] [place] [address] RE:Kavon Andujar MR#:[id number] Valles: I saw Kavon Andujar in the Neurology Clinic today and have enclosed a copy of my note. 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 He [...] over the telephone. Sincerely, Michelle Landon M.D. Contracting Executive, Neurology JINNY/ C: 06/13/97 cc: Alina Moise M.D. Division of Neurosurgery [facility] Robert Carlson M.D. Division of Vascular Surgery [facility] documented in this encounter Plan of Treatment Not on filedocumented as of this encounter Visit Diagnoses Not on filedocumented in this encounter
--- OUTSIDE RECORDS SUMMARY | ~2019-11-04 | XMS | Encounter Summary ---
Demographics + + + | Address | [address] | | | [place] [address] | + + + | Home Phone [...] Team Providers + +------+ + | Care 5Th Grade Teacher Name | Role | Phone | [...] [address] | | | | | [place], [place] | [place], [place] | | | | | [address] | [address] | | | | | [phone] | | | | | | | [...] | | | | | [address] [facility] | | | | | | [address] | | | | | | | [...]
--- OUTSIDE RECORDS SUMMARY | ~2019-11-04 | XMS | Encounter Summary ---
Demographics + + + | Address | [address] | | | [place] [address] | + + + | Home Phone [...] Team Providers + +------+ + | Care Hogshead Liner Name | Role | Phone | + [...] E | | | | | | ([facility]) | [place] | | | | | | Procedures | [address] | | | | | | VAS Arm | Phone: | | | | | | Bilateral | [phone] | | | | | | Mapping For | Fax: | | | | | | Dialysis | [phone] | | +--------+--------+ + + + + [...] | [address] | renal disease) ([facility]) | | | | ULTRASOUND [address] | [place] | | | | | [address] [place] | [address] | | | | | [place] | | | | | | [address] | | | | | | [phone] | | | +--------+ + + + [...] | | ([facility]), Secondary | | | | | [...] | | | | | | [address] [place], [place] | | | | | | [address] | | | | | | | [...]
--- OUTSIDE RECORDS SUMMARY | ~2019-11-04 | XMS | Encounter Summary ---
Demographics + + + | Address | [address] | | | [place] [address] | + + + | Home Phone [...] Team Providers + +------+ + | Care Rock Room Worker Name | Role | Phone [...] [address] | | | | | [place], [place] | [place], [place] | | | | | [address] | [address] | | | | | [phone] | [phone] | | | | | | | [...] | | | | | | [address] [facility] | | | | | | [address] | | | | | | | [...]
--- OUTSIDE RECORDS SUMMARY | ~2019-11-04 | XMS | Encounter Summary ---
Demographics + + + | Address | [address] | | | [place] [address] | + + + | Home Phone [...] Team Providers + +------+ + | Care Logistics Planning Engineer Name | Role | Phone | [...] [address] | | | | | [place], [place] | [place], [place] | | | | | [address] | [address] | | | | | [phone] | | | | | | | [...] HOSPITAL[facility] | | | | | | [address] | | | | | | | [...]
--- OUTSIDE RECORDS SUMMARY | ~2019-11-04 | XMS | Encounter Summary ---
Demographics + + + | Address | [address] | | | [place] [address] | + + + | Home Phone [...] Providers + +------+ + | Care Sheet Cutting Operator Name | Role | Phone | [...] [facility]) | | | | | | | [...] + + | 09/10/ | Hospital | [facility] | Brian Orosco MD | CKD (chronic kidney | | 2019 | Encounter | [facility] | [address] | disease) stage 5, | | | | OPERATING ROOM [address] | [place], [place] | GFR less than 15 | | | | [address] | [address] | ml/min ([facility]) | | | | [place], [place] | [phone] | | | | | [address] | | | | | | [phone] | | | +--------+ + + + [...] dialysis shunt, please contact your ysician at [phone]. Discharge instructions for Diagnostic Imaging sedation patients [...] . For any severe symptoms, please call 401 or report to your nearest Emergency Department. Acetaminophen; Hydrocodone tablets or capsules Brand Names: Anexsia, Lorcet, Lorcet HD, Lorcet Plus, Lortab, [place], Verdrocet, Vicodin, Vi codin ES, Vicodin HP, [...] information carefully each time. Talk to your underwater trapper regarding the use of this medicine in children. Special care may be needed. What side effects may I notice from receiving this medicine? Side effects that you should report to your doctor or health acute care nurse practitioner as soon as p ossible: allergic reactions [...] attention (report to your doctor or health acute care nurse practitioner if they continue or are bothersome): constipation [...] an official disposal site. Contact the [facility] at [phone] or your [facility] government to find a site. If [...] this medicine? Tell your doctor or health acute care nurse practitioner if your pain does not go away, [...] cuts, scrapes, or blows. Date Last Reviewed: 12/01/201619997[address] [employer] [place], [place] [address]. All righ ts reserved. This information is [...] and bl ood clots prevention. Prescription for Bl[place] given and side effects were explained. Patient states that he also takes oxycodone at home; patient and his family were educated about taki ng oxycodone or Bl[place] only and not both. OTC Tylenol intake [...] | Visit | | [address] [facility] | | | | | | [address] [place], [place] | | | | | | [address] | | | | | | | [...] Testing | 65 - 99 mg/dL | [facility] | | | POC | performed at [facility];[address] | | LABORATORY | | | | [address];[place] | | | | | | [address] | | | | + + + + + + + + | Specimen | + + | | + + + + + + + | Performing | Address | City/State/Zipcode | Phone Number | | Organization | | | | + + + + + | [facility] | [address] | [place] [address] | [phone] | + + + + + POC [...] | | | POC | performed at [facility];[address] | | LABORATORY | | | | [address];[place], [place] | | | | | | [address] | | | | + + + + + + + + | Specimen | + + | | + + + + + + + | Performing | Address | City/State/Zipcode | Phone Number | | Organization | | | | + + + + + | [facility] | [address] | [place] [address] | [phone] | + + + + + documented [...] less than 15 ml/min ([facility]) Chronic kidney | | disease, Stage V [...] One week or | | | longer, caojkm-hlx-kquhf use of | | | at least [...]
--- OUTSIDE RECORDS SUMMARY | ~2019-11-04 | XMS | Encounter Summary ---
Demographics + + + | Address | [address] | | | [place] [address] | + + + | Home Phone [...] + +------+ + | Care Real Estate Office Supervisor Name | Role | Phone | [...] [address] | | | | | [place], [place] | [place], [place] | | | | | [address] | [address] | | | | | [phone] | [phone] | | | | | | | [...] | | | | | | [address] [facility] | | | | | | [address] | | | | | | | [...]
--- OUTSIDE RECORDS SUMMARY | ~2019-11-04 | XMS | Encounter Summary ---
Demographics + + + | Address | [address] | | | [place] [address] | + + + | Home Phone [...] Providers + +------+ + | Care Director Furniture Name | Role | Phone | + [...] + + | 08/10/ | Telephone | [facility] | Brian Orosco MD | Other (orders ) | | 2019 | | VASCULAR SURGERY | [address] | | | | | [address] | [place], [place] | | | | | [place], [place] | [address] | | | | | [address] | [phone] | | | | | [phone] | | | +--------+ + + + [...] [place] | | | | | | [address] | | | | | | (Fax) | | +--------+---------+ + + + documented as of this encounter Visit Diagnoses Not on filedocumented in this encounter"
--- OUTSIDE RECORDS SUMMARY | ~2019-11-04 | XMS | Encounter Summary ---
Demographics + + + | Address | [address] | | | [place] [address] | + + + | Home Phone [...] Team Providers + +------+ + | Care Wrecking Crane Engine Operator Name | Role | Phone | [...] + + | 10/04/ | Documentati | [facility] | Simon, | Results (09/30/19) | | 2019 | on | NEPHROLOGY [place] | [facility] | | | | | [address] | Artist Agent | | | | | [address] | | | | | | [place] | | | | | | [address] | | | | | | [phone] | | | +--------+ + + + [...] [place] | | | | | | [address] | | | | | | (Fax) [...]
--- OUTSIDE RECORDS SUMMARY | ~2019-11-04 | XMS | Encounter Summary ---
Demographics + + + | Address | [address] | | | [place] [address] | + + + | Home Phone [...] Providers + +------+ + | Care Senior Health Physics Technician Name | Role | Phone [...] | sleep apnea) | | | | [place] Castaneda, | [place] | (Primary Dx); COPD | | | | [place] [address] | [address] | (chronic obstructive | | | | [phone] | | pulmonary disease) | | | [...] | | | | | [address] [place], [place] | | | | | | [address] | | | | | | | [...]
--- OUTSIDE RECORDS SUMMARY | ~2019-11-04 | XMS | Encounter Summary ---
Demographics + + + | Address | [address] | | | [place] [address] | + + + | Home Phone [...] Providers + +------+ + | Care Tire Specialist Name | Role | Phone | [...] | | | ([facility]) | [place] | | | | | | Procedures | [address] | | | | | | VAS Arm | Phone: | | | | | | Bilateral | [phone] | | | | | | Mapping For | Fax: | | | | | | Dialysis | [phone] | | +--------+--------+ + + + + Encounter Details +--------+ + + + + | Date | Type | Department | Care Team | Description | +--------+ + + + + | 08/20/ | Hospital | [facility] | Trisha Conner, DNP | 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 | VASCULAR SURGERY | [address] | renal disease) ([facility]) | | | | ULTRASOUND [address] | [place] | | | | | [address] [place] | [address] | | | | | [place] | | | | | | [address] | | | | | | [phone] | | | +--------+ + + + [...] | | | | | | [address] [place], [place] | | | | | | [address] | | | | | | | [...]
--- OUTSIDE RECORDS SUMMARY | ~2019-11-04 | XMS | Encounter Summary ---
Demographics + + + | Address | [address] | | | [place] [address] | + + + | Home Phone [...] [place] | | | | | [address] | | + + + + + Care Team Providers + +------+ + | Care Hvac Engineering Technician Name | Role | Phone | + +------+ + PCP | Unavailable | + +------+ + Encounter Details +--------+ + + + + | Date | Type | Department | Care Team | Description | +--------+ + + + + | 01/31/ | Transcribed | Allergy Clinic at | Oliva, Other | Transcribed | | 1997 | | [facility] [address] | | | | | | [address] | | | | | | Mailcode: [id number] | | | | | | [address] | | | | | | [place], | | | | | | [place] [address] | | | | | | [phone] | | | +--------+ + + + [...] as of this encounter Progress Notes Interface, Returned Goods Sorter In - 12/28/2006 5:10 AM PST [address] [address] or January 31, 1998 GRIFFIN SMILEY MD [address] [facility] [address] [place] [address] RE:PORFIRIO ZAVALA MR#:[id number] Smiley: As [...] to hear in our conversation that the [place] [employer] does not cover Ultram in [...] in the future. Sincerely, Nelson Melara M.D. Hand Grinder, Anesthesiology [facility] MANDY/geovanni documented in this encounter Plan of Treatment Not on filedocumented as of this encounter Visit Diagnoses Not on filedocumented in this encounter"
--- OUTSIDE RECORDS SUMMARY | ~2019-11-04 | XMS | Encounter Summary ---
Demographics + + + | Address | [address] | | | [place] [address] | + + + | Home Phone [...] Providers + +------+ + | Care Steel Spar Operator Name | Role | Phone | [...] [address] | | | | | [place], [place] | [place], [place] | | | | | [address] | [address] | | | | | [phone] | [phone] | | | | | | | [...] | | | | | | [address] [facility] | | | | | | [address] | | | | | | | [...]
--- OUTSIDE RECORDS SUMMARY | ~2019-11-04 | XMS | Encounter Summary ---
Demographics + + + | Address | [address] | | | [place] [address] | + + + | Home Phone [...] Providers + +------+ + | Care Superintendent Job Name | Role | Phone | + [...] N Young | | | | | [place], [place] | [place], [place] | | | | | [address] | [address] | | | | | [phone] | [phone] | | | | | | | [...] | | | | | [address] [facility] | | | | | | [address] | | | | | | | [...]
--- OUTSIDE RECORDS SUMMARY | ~2019-11-04 | XMS | Encounter Summary ---
Demographics + + + | Address | [address] | | | [place] [address] | + + + | Home Phone [...] Providers + +------+ + | Care Electronics Processing Supervisor Name | Role | Phone | + +------+ + | Rahul Silva MD | PCP | | + +------+ + Encounter Details +--------+ + + + + | Date | Type | Department | Care Team | Description | +--------+ + + + + | 03/13/ | Orders Only | [facility] | Conversion | | | 2016 | | NEPHROLOGY [place] | Transaction, | | | | | [address] | Provider Unknown | | | | | [address] [place] [address] | | | | | | [address] | (Fax) | | | | | [phone] | | | +--------+ + + + [...] HOSPITAL[facility] | | | | | | [address] | | | | | | | [...] - 1.030 | EXTERNAL | | | [facility] | | | LAB | | + [...] | | | LAB | | | [facility] | | | | | + + [...]
--- OUTSIDE RECORDS SUMMARY | ~2019-11-04 | XMS | Encounter Summary ---
Demographics + + + | Address | [address] | | | [place] [address] | + + + | Home Phone [...] Team Providers + +------+ + | Care Multiple Spindle Router Operator Name | Role | Phone | [...] N Young | | | | | [place], [place] | [place], [place] | | | | | [address] | [address] | | | | | [phone] | | | | | | | [...] | | | | | | [address] [facility] | | | | | | [address] | | | | | | | [...]
--- OUTSIDE RECORDS SUMMARY | ~2019-11-04 | XMS | Encounter Summary ---
Demographics + + + | Address | [address] | | | [place] [address] | + + + | Home Phone [...] Providers + +------+ + | Care Licensed Mortgage Loan Officer Name | Role | Phone | + +------+ + | Rahul Silva MD | PCP | | + +------+ + Encounter Details +--------+ + + + + | Date | Type | Department | Care Team | Description | +--------+ + + + + | 06/23/ | Orders Only | [facility] | Provider, | Chronic kidney | | 2019 | | SYSTEM GENERIC OP | Jonathan, [address] | disease, stage IV | | | | CONVERSION [address] | 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
--- OUTSIDE RECORDS SUMMARY | ~2019-11-04 | XMS | Encounter Summary ---
Demographics + + + | Address | [address] | | | [place] [address] | + + + | Home Phone [...] Providers + +------+ + | Care Auto Painter Helper Name | Role | Phone | + +------+ + | Rahul Silva MD | PCP | | + +------+ + Encounter Details +--------+ + + + + | Date | Type | Department | Care Team | Description | +--------+ + + + + | 10/03/ | Orders Only | [facility] | Conversion | | | 2015 | | NEPRHOLOGY [place]IG[place] | Transaction, | | | | | [address] | Provider Unknown | | | | | [address] [place], [place] | [phone] | | | | | [address] | (Fax) | | | | | [phone] | | | +--------+ + + + [...] HOSPITAL[facility] | | | | | | [address] | | | | | | | [...]
--- OUTSIDE RECORDS SUMMARY | ~2019-11-04 | XMS | Encounter Summary ---
Demographics + + + | Address | [address] | | | [place] [address] | + + + | Home Phone [...] Author + + + | Author | [facility] | + + + | Organization | [facility] | + + + | Address | Unknown | + + + | Phone | Unavailable | + + + Support + + + + + | Name | Relationship | Address | Phone | + + + + + | Darci Andujar | VALERIE | [place] | | | | | [address] | | + + + + + Care Team Providers + +------+ + | Care Trains Service Conductor Name | Role | Phone | [...] Clinic | | | | | | [facility], [address] | | | | | | [place], [place] | | | | | | [address] | | | | | | [phone] | | | +--------+ + + + [...] as of this encounter Progress Notes Interface, Energy Engineer In - 12/25/2006 5:00 AM [facility] DATE: 03/16/98 PLASTIC SURGERY [...] in the near future. Galo Arora M.D. Track Layer Head, Division of Plastic & Reconstructive Surgery AYDEE/alfred documented in this encounter Plan of Treatment Not on filedocumented as of this encounter Visit Diagnoses Not on filedocumented in this encounter"
--- OUTSIDE RECORDS SUMMARY | ~2019-11-04 | XMS | Encounter Summary ---
Demographics + + + | Address | [address] | | | [place] [address] | + + + | Home Phone [...] Providers + +------+ + | Care Gear Cutting Machine Operator Name | Role | [...] + + | 09/10/ | Anesthesia | [facility] | Venkata Carroll | | | 2019 | [facility] | [address] | | | | | OPERATING ROOM [address] | | | | | [address] | [place] [address] | | | | | [place], [place] | [phone] | | | | | [address] | | | | | | [phone] | | | +--------+ + + + + Anesthesia Record + + + + + | Procedure Name | Responsible | Anesthesia Start | Anesthesia Stop Time | | | Anesthesiologist | Time | | + + + + + | INSERTION AV FISTULA | Venkata Carroll, | 09/10/19 1307 | 09/10/19 1401 | | (Right BBF) (Right | SHIPPING AND RECEIVING SPECIALIST | | | | Arm Upper) [...] 09/10/19 1600 by | | amor | eogl-xok-rnnvxl catheter system; | Trinidad Ramírez | Leana [...] 2020 | Visit | | [address] [facility] | | | | | | [address] [place], [place] | | | | | | [address] | | | | | | | [...]
--- OUTSIDE RECORDS SUMMARY | ~2019-11-04 | XMS | Encounter Summary ---
Demographics + + + | Address | [address] | | | [place] [address] | + + + | Home Phone [...] [place] | | | | | [address] | | + + + + + [...] | | | | | | [place], | | | | | | [place] [address] | | | | | | [phone] | | | +--------+ + + + [...] as of this encounter Discharge Summaries Interface, Cracker Off In - 02/05/2007 1:03 AM PST [address] [address] [facility] MEDICAL SUMMARY OF HOSPITALIZATION Med Rec No.: [id number] Admission Date: 12/28/96 Name: Kavon Andujar Discharge Date: 01/03/97 STAFF PHYSICIAN: Robert Carlson M.D. Professor, Vascular Surgery PRINCIPAL FINAL DIAGNOSIS: Osteophyte of left vkftz-gxy-wvef amputation stump. ADDITIONAL DIAGNOSES: Phantom pain. PRINCIPAL PROCEDURE: Revision of left lvqtx-awx-fnfr amputation stump and excision of left stump osteophyte. 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 Since then he has had pain in the stump. On a computed tomography (CT) scan, it was noted that he had a large bone spur and a cyst in his stump site. HOSPITAL COURSE: The patient was admitted on December 28 and underwent revision of his left wjmvx-ljr-gagc amputation stump with excision of his left [...] Normal. 3. DIET: Normal. Nick Noriega M.D. Academic Affairs Vice President, General Surgery Robert Carlson M.D. Professor, Vascular Surgery DOMINIC/jc A cc: RUBIA KNAPP MD [address] [facility] [address] documented in this encounter Plan of Treatment Not on filedocumented as of this encounter Visit Diagnoses Not on filedocumented in this encounter"
--- OUTSIDE RECORDS SUMMARY | ~2019-11-04 | XMS | Clinical Summary ---
Demographics + + + | Address | [address] | | | [place] [address] | + + + | Home Phone [...] Providers + +------+ + | Care Improvement Nurse Name | Role | Phone | [...] automatically from request for surgery | | [id number] | + + + + + | [...] & Plan: Controlled on current | | nthieqiwuw73 yr old male with COPD, current heavy [...] | | | | | | fistula) ([facility]) | +--------+ + + + + | 10/20/ | Telephone | Nephrology | Alfred, | Other (Steve /U) | | 2018 | | | Charlie Abdi | | | | | | Label Paster | | +--------+ + + + + | 10/19/ | Documentati | Nephrology | Alfred | Results (09/22/19) | | 2018 | on | | Charlie Abdi | | | | | | Label Paster | | +--------+ + + + + [...] | ([facility]) | +--------+ [...] | | ([facility]); CKD (chronic | | | | [...] | | ([facility]); Essential | | | | | | hypertension; Iron | | | | | | deficiency; | | | | | | Secondary | | | | | | hyperparathyroidism | | | | | | ([facility]); 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, with | | | | | | long-term current | | | | | | use of insulin | | | | | | ([facility]); Edema of | | | | | | lower extremity; | | | | | | Hypomagnesemia; | | | | | | Vitamin D deficiency | +--------+ + + + + | 10/04/ | Documentati | Nephrology | Alfred, | Results (09/30/19) | | 2019 | on | | Charlie Abdi | | | | | | Label Paster | | +--------+ + + + + [...] | 09/17/ | Documentati | Nephrology | Oyl Alvarenga | Labs Only (interpath | | 2018 | on | | Arnold, Medical | 08/24/19) | | | | | Label Paster | | +--------+ + + + + | 09/13/ | Telephone | Vascular Surgery | Terri Aguilar, | Follow-up | | 2018 | | | Wire Sawyer | | +--------+ + + + + [...] Abdi | | | | | | Label Paster | | +--------+ + + + + [...] | Encounter | | | renal disease) ([facility]) | +--------+ [...] [facility] | | | | | | [address] | | | | | | [address] | | | | | | | [...] | | | POC | performed at [facility];[address] | | LABORATORY | | | | [facility];[place], [place] | | | | | | [address] | | | | + + + + + + + + | Specimen | + + | | + + + + + + + | Performing | Address | City/State/Zipcode | Phone Number | | Organization | | | | + + + + + | [facility] | [address] | [place] [address] | [phone] | + + + + + ECG [...] +--------+ +---------+--------+ | MEDICARE | MEDICA | [id number] | 07/01/20 | [phone] | | Medica | | | RE | | 05-Pre | 5 | | re | | | PART A | | sent | | | | | | AND B | | | | | | + +--------+ +--------+ +---------+--------+ | [employer] | MODA | [id number] | 07/04/20 | [phone] | | Medica | | MEDICAID HMO | HEALTH | | 19-Pre | 1 | | id | | | MDCD | | sent | | | | | | [place]MO [place] | | | | | | + +--------+ +--------+ +---------+--------+ | MEDICAID [place] | MEDICA | [id number] | | [phone] | | Medica | [...] chula | | | 1 (Home) | [address] | + +--------+ +--------+ + + | Kavon Andujar | Person | Self | [birth year] | [address] | | [place] | al/Fam | | 1940 | [phone] | [place], [place] | | | chula | | | 1 (Home) | [address] | + +--------+ +--------+ + + Advance Directives + + + + + | Type | Date Recorded | Patient | Explanation | | | | Church Administrator | | + + + + + | Power of | | | | | Paper Folding Machine Operator | | | | + + + [...]
--- OUTSIDE RECORDS SUMMARY | ~2019-11-04 | XMS | Encounter Summary ---
Demographics + + + | Address | [address] | | | [place] [address] | + + + | Home Phone [...] Providers + +------+ + | Care Clinical Law Professor Name | Role | Phone | [...] + + | 08/26/ | Office | [facility] | Trisha Conner DNP | CKD (chronic kidney | | 2019 | Visit | VASCULAR SURGERY | [address] | disease) stage 5, | | | | [address] | [place], [place] | GFR less than 15 | | | | [place], [place] | [address] | ml/min (HCC) | | | | [address] | | (Primary Dx) | | | | [phone] | Brian Orosco MD | | | | | | [address] | | | | | | [place], [place] | | | | | | [address] | | | | | | [phone] | | | | | | | [...] CV: No peripheral edema, rate regular SKIN: [place], warm, dry without rash/lesion MS: ROM not [...] | | | | | | [address] [place], [place] | | | | | | [address] | | | | | | | [...] GFR less than 15 ml/min ([facility]) - Primary Chronic | | kidney disease, Stage V | + + documented in this encounter"
--- OUTSIDE RECORDS SUMMARY | ~2019-11-04 | XMS | Encounter Summary ---
Demographics + + + | Address | [address] | | | [place] [address] | + + + | Home Phone | | + + + | Preferred Language | Unknown | + + + | Marital Status | Single | + + + | Muslim Affiliation | PRO | + + + [...] [place] | | | | | [address] | | + + + + + Care Team Providers + +------+ + | Care Software Engineer Web Services Name | Role | Phone | [...] | | | | | | [place], | | | | | | [place] [address] | | | | | | [phone] | | | +--------+ + + + [...] as of this encounter Discharge Summaries Interface, Blower Feeder Dyed Raw Stock In - 02/05/2007 1:03 AM PST [address] [address] [facility] MEDICAL SUMMARY OF HOSPITALIZATION Med Rec No.: [id number] Admission Date: 12/28/96 Name: Kavon Andujar Discharge Date: 01/03/97 STAFF PHYSICIAN: Robert Carlson M.D. Professor, Vascular Surgery PRINCIPAL FINAL DIAGNOSIS: Osteophyte of left vccpv-zpq-rzgc amputation stump. ADDITIONAL DIAGNOSES: Phantom pain. PRINCIPAL PROCEDURE: Revision of left jetdg-mlk-hbyx amputation stump and excision of left stump osteophyte. 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 Since then he has had pain in the stump. On a computed tomography (CT) scan, it was noted that he had a large bone spur and a cyst in his stump site. HOSPITAL COURSE: The patient was admitted on December 28 and underwent revision of his left xpwut-qtp-pymd amputation stump with excision of his left [...] Normal. 3. DIET: Normal. Nick Noriega M.D. Jack Tamp Operator, General Surgery Robert Carlson M.D. Professor, Vascular Surgery DOMINIC/jc A cc: RUBIA KNAPP MD [address] [facility] [address] documented in this encounter Plan of Treatment Not on filedocumented as of this encounter Visit Diagnoses Not on filedocumented in this encounter"
--- OUTSIDE RECORDS SUMMARY | ~2019-11-04 | XMS | Encounter Summary ---
Demographics + + + | Address | [address] | | | [place] [address] | + + + | Home Phone [...] Providers + +------+ + | Care Bench Mover Name | Role | Phone | + +------+ + PCP | Unavailable | + +------+ + Encounter Details +--------+ + + + + | Date | Type | Department | Care Team | Description | +--------+ + + + + | 12/31/ | [facility] | [facility] | | | | 2000 | Encounter | MED CTR XRAY [address] | | | | | | [address] [place] | | | | | | [place] [address] | | | | | | [phone] | | | +--------+ + + + [...] [place] | | | | | | [address] | | | | | | | | +--------+---------+ + + + documented as of this encounter Visit Diagnoses Not on filedocumented in this encounter"
--- OUTSIDE RECORDS SUMMARY | ~2019-11-04 | XMS | Encounter Summary ---
Demographics + + + | Address | [address] | | | [place] [address] | + + + | Home Phone [...] + +------+ + | Care Professor Of Management Name | Role | Phone | [...] | sleep apnea) | | | | [place] [address], | [place] | (Primary Dx); COPD | | | | [place] [address] | [address] | (chronic obstructive | | | | [phone] | | pulmonary disease) | | | [...] | | | | | [address] [place], [place] | | | | | | [address] | | | | | | | [...]
--- OUTSIDE RECORDS SUMMARY | ~2019-11-04 | XMS | Encounter Summary ---
Demographics + + + | Address | [address] | | | [place] [address] | + + + | Home Phone [...] Providers + +------+ + | Care Production Tech Name | Role | Phone | [...] | | | | disease not | [place], | [place], [place] | | | | | on chronic | [place] [address] | [address] | | | | | dialysis | Phone: | Phone: | | | | | ([facility]) | [phone] | [phone] | | | | | Hypertension | Fax: | Fax: | | | | | , | [phone] | [phone] | | | | | unspecified | | | | | | | type | | | +--------+ + + + + + Encounter Details +--------+ + + + + | Date | Type | Department | Care Team | Description | +--------+ + + + + | 07/28/ | Orders Only | [facility] | Farrukh Acuna MD | Iron deficiency | | 2019 | | NEPHROLOGY [place] | [address] [place] | (Primary Dx); Anemia | | | | [address] [place] | [address] [place], [place] | of chronic kidney | | | | [address] [place], [place] | [address] | failure, stage 5 | | | | [address] | | ([facility]); Stage 5 | | | | [phone] | | chronic kidney | | | | | | disease not on | | | | | | chronic dialysis | | | | | | ([facility]); Secondary | | | | | | hyperparathyroidism | | | | | | ([facility]); Hypertension, | | | | | | [...] [place] | | | | | | [address] | | | | | | (Fax) [...] | | | | ([facility]) Hypertension, | | | | | | [...] | | | | ([facility]) Hypertension, | | | | | | [...] | | | | ([facility]) Hypertension, | | | | | | [...]
--- OUTSIDE RECORDS SUMMARY | ~2019-11-04 | XMS | Encounter Summary ---
Demographics + + + | Address | [address] | | | [place] [address] | + + + | Home Phone [...] Team Providers + +------+ + | Care Glass Carrier Name | Role | Phone | [...] [address] | | | | | [place], [place] | [place] [address] | | | | | [address] | | | | | | [phone] | (Fax) | | +--------+ + + [...] | | | | | | [address] [facility], [place] | | | | | | [address] | | | | | | | [...] pressures of 5-10mmHg. MEASUREMENTS | | | Advertising Display Rotator: MARLENA Authenticated by: KAI BIRMINGHAM MD Report [...] venous pressures of 5-10mmHg. | | MEASUREMENTS Advertising Display Rotator: DHAuthenticated by: KAI BIRMINGHAM [facility] | | Date/Time: 03-27-2016 13:39:46 IMPRESSION: 1. [...] | |MEASUREMENTS | | | | | |Advertising Display Rotator: MARLENA | |Authenticated by: KAI BIRMINGHAM MD [...]
--- OUTSIDE RECORDS SUMMARY | ~2019-11-04 | XMS | Encounter Summary ---
Demographics + + + | Address | [address] | | | [place] [address] | + + + | Home Phone [...] [place] | | | | | [address] | | + + + + + Care Team Providers + +------+ + | Care Bobbin Stripper Name | Role | Phone | [...] as of this encounter Progress Notes Interface, Dinkey Engine Firer/Fireman In - 11/10/2006 2:27 AM PSTCLINIC DATE: [...] letter stating that I would like Mr. Anduajr to see Dr. Nelson Melara before I [...] he embarked on this. Galo Arora M.D. Experimental Psychologist, Plastic and Reconstructive Surgery WOJCIECH / [id number] / [id number] / [id number] cc: Nelson Melara M.D. Anesthesiology. [facility]. [id number] signed by Interface, Dinkey Engine Firer/Fireman In at 11/10/2006 2:27 AM PSTdocume nted in this encounter Plan of Treatment Not on filedocumented as of this encounter Visit Diagnoses Not on filedocumented in this encounter"
--- OUTSIDE RECORDS SUMMARY | ~2019-11-04 | XMS | Encounter Summary ---
Demographics + + + | Address | [address] | | | [place] [address] | + + + | Home Phone [...] Team Providers + +------+ + | Care Fraternity Adviser Name | Role | Phone | + +------+ + | Rahul Silva MD | PCP | | + +------+ + Encounter Details +--------+ + + + + | Date | Type | Department | Care Team | Description | +--------+ + + + + | 04/10/ | Orders Only | [facility] | Conversion | | | 2014 | | NEPRHOLOGY [place] | Transaction, | | | | | [address] | Provider Unknown | | | | | [address] [place], [place] | | | | | | [address] | (Fax) | | | | | [phone] | | | +--------+ + + + [...] [place] | | | | | | [address] | | | | | | | [...]
--- OUTSIDE RECORDS SUMMARY | ~2019-11-04 | XMS | Encounter Summary ---
Demographics + + + | Address | [address] | | | [place] [address] | + + + | Home Phone [...] Team Providers + +------+ + | Care Erecting Engineer Name | Role | Phone | [...] + + | 07/30/ | Telephone | [facility] | Brian Orosco MD | Establish Care | | 2019 | | VASCULAR SURGERY | [address] | (Referral) | | | | [address] | [place], [place] | | | | | [place], [place] | [address] | | | | | [address] | [phone] | | | | | [phone] | | | +--------+ + + + [...] | | | | | | [address] [place], [place] | | | | | | [address] | | | | | | | | +--------+---------+ + + + documented as of this encounter Visit Diagnoses Not on filedocumented in this encounter"
--- OUTSIDE RECORDS SUMMARY | ~2019-11-04 | XMS | Encounter Summary ---
Demographics + + + | Address | [address] | | | [place] [address] | + + + | Home Phone [...] Providers + +------+ + | Care Junior High Math Teacher Name | Role | Phone | [...] + + | 07/30/ | Telephone | [facility] | Brian Orosco MD | Establish Care | | 2019 | | VASCULAR SURGERY | [address] | (Referral) | | | | [address] [place] | [place], [place] | | | | | [place], [place] | [address] | | | | | [address] | [phone] | | | | | [phone] | | | +--------+ + + + [...] | | | | | | [address] [place], [place] | | | | | | [address] | | | | | | | | +--------+---------+ + + + documented as of this encounter Visit Diagnoses Not on filedocumented in this encounter"
--- OUTSIDE RECORDS SUMMARY | ~2019-11-04 | XMS | Encounter Summary ---
Demographics + + + | Address | [address] | | | [place] [address] | + + + | Home Phone [...] Providers + +------+ + | Care Supervisor Adult Education Name | Role | Phone | [...] + + | 08/26/ | Office | [facility] | Trisha Conner DNP | CKD (chronic kidney | | 2019 | Visit | VASCULAR SURGERY | [address] | disease) stage 5, | | | | [address] [place] | [place], [place] | GFR less than 15 | | | | [place], [place] | [address] | ml/min (HCC) | | | | [address] | | (Primary Dx) | | | | [phone] | Brian Orosco MD | | | | | | [address] | | | | | | [place], [place] | | | | | | [address] | | | | | | [phone] | | | | | | | [...] CV: No peripheral edema, rate regular SKIN: [place], warm, dry without rash/lesion MS: ROM not [...] | | | | | [address] [place], [place] | | | | | | [address] | | | | | | | [...] GFR less than 15 ml/min ([facility]) - Primary Chronic | | kidney disease, Stage V | + + documented in this encounter"
--- OUTSIDE RECORDS SUMMARY | ~2019-11-04 | XMS | Encounter Summary ---
Demographics + + + | Address | [address] | | | [place] [address] | + + + | Home Phone [...] Providers + +------+ + | Care Sales Route Driver Helper Name | Role | Phone [...] N Young | | | | | [place], [place] | [place], [place] | | | | | [address] | [address] | | | | | [phone] | [phone] | | | | | | | [...] GENERALRADHA | | | | | | [address] | | | | | | | [...]
--- OUTSIDE RECORDS SUMMARY | ~2019-11-04 | XMS | Encounter Summary ---
Demographics + + + | Address | [address] | | | [place] [address] | + + + | Home Phone [...] Team Providers + +------+ + | Care Wellness Program Administrator Name | Role | Phone | [...] Young | | | | | [place], [place] | [place], [place] | | | | | [address] | [address] | | | | | [phone] | [phone] | | | | | | | [...] | | | | | | [address] [facility] | | | | | | [address] | | | | | | | [...]
--- OUTSIDE RECORDS SUMMARY | ~2019-11-04 | XMS | Encounter Summary ---
Demographics + + + | Address | [address] | | | [place] [address] | + + + | Home Phone [...] Providers + +------+ + | Care Heel Caser Name | Role | Phone | + +------+ + | Rahul Silva MD | PCP | | + +------+ + Encounter Details +--------+ + + + + | Date | Type | Department | Care Team | Description | +--------+ + + + + | 07/17/ | Orders Only | [facility] | Conversion | | | 2016 | | NEPHROLOGY [place] | Transaction, | | | | | [address] | Provider Unknown | | | | | [address] [place] | | | | | | [address] | (Fax) | | | | | [phone] | | | +--------+ + + + [...] HOSPITAL[facility] | | | | | | [address] | | | | | | | [...]
--- OUTSIDE RECORDS SUMMARY | ~2019-11-04 | XMS | Encounter Summary ---
Demographics + + + | Address | [address] | | | [place] [address] | + + + | Home Phone [...] Team Providers + +------+ + | Care Buggy Ladle Tender Name | Role | Phone | + +------+ + | Rahul Silva MD | PCP | | + +------+ + Encounter Details +--------+ + + + + | Date | Type | Department | Care Team | Description | +--------+ + + + + | 09/01/ | Orders Only | [facility] | Farrukh Acuna MD | | | 2013 | | NEPHROLOGY [place] | [address] [place] | | | | | [address] [place] | [address] [place], [place] | | | | | [address] [place], [place] | [address] | | | | | [address] | | | | | | [phone] | | | +--------+ + + + [...] | | | | | | 160 [place] | | | | | | [address] | | | | | | | [...] | | | LAB | | | [place] | | | | | + + [...]
--- OUTSIDE RECORDS SUMMARY | ~2019-11-04 | XMS | Encounter Summary ---
Demographics + + + | Address | [address] | | | [place] [address] | + + + | Home Phone [...] Providers + +------+ + | Care Director Treasurer Name | Role | Phone | + +------+ + | Rahul Silva MD | PCP | | + +------+ + Encounter Details +--------+---------+ + + + | Date | Type | Department | Care Team | Description | +--------+---------+ + + + | 10/04/ | Office | [facility] | Farrukh Acuna MD | CKD (chronic kidney | | 2019 | Visit | NEPHROLOGY [place] | [address] [place] | disease) stage 5, | | | | [address] | [address] [place], [place] | GFR less than 15 | | | | [address] | [address] | ml/min (HCC) | | | | [place], [place] | | (Primary Dx); Anemia | | | | [address] | | of chronic kidney | | | | [phone] | | failure, stage 5 | | | | | | (HCC); Essential | | | | | | hypertension; Iron | | | | | | deficiency; | | | | | | Secondary | | | | | | hyperparathyroidism | | | | | | ([facility]); 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, with | | | | | | long-term current | | | | | | use of insulin | | | | | | ([facility]); Edema of | | [...] 10/2016 with severe pneumonia, severe ZEKE; needed CHIMNEY BUILDER for ~5 weeks b efore renal function recovery mid 12/2016. He was admitted to [facility] for 3 nights in July 2016 [...] 19.5 (A) 05/27/2019 LABPROT 2,445.6 (A) 03/01/2019 [id number] 30 10/08/2018 Assessment: Mr. Andujar is a 78 y.o. male patient with stage IV CKD on a background of diabetes & hypert ension and recent hospitalization for C-diff and hehydration. The most likely pathology here is that of diabetic nephropathy +/- hypertensive nephrosclerosis/arteriolosclerosis. He was hospitalized in 10/2016 with severe pneumonia, severe ZEKE; needed CHIMNEY BUILDER for ~5 weeks b efore renal function [...] Also: I see no need for acute CHIMNEY BUILDER. I see no need to send him [...] | | | | | | [address] [place], [place] | | | | | | [address] | | | | | | | [...]
--- OUTSIDE RECORDS SUMMARY | ~2019-11-04 | XMS | Encounter Summary ---
Demographics + + + | Address | [address] | | | [place] [address] | + + + | Home Phone [...] Providers + +------+ + | Care Yard Inspector Name | Role | Phone | [...] | | | ([facility]) | [place], [place] | | | | | | Procedures | [address] | | | | | | VAS Arm | Phone: | | | | | | Bilateral | [phone] | | | | | | Mapping For | Fax: | | | | | | Dialysis | [phone] | | +--------+--------+ + + + + Reason for Visit + + + | Reason | Comments | + + + | Referral Consult | | + + + Encounter Details +--------+ + + + + | Date | Type | Department | Care Team | Description | +--------+ + + + + | 07/30/ | Telephone | [facility] | Trisha Conner DNP | Referral Consult | | 2019 | | CARDIOTHORACIC | [address] | | | | | SURGERY [address] | [place], [place] | | | | | [address] | [address] | | | | | [place], [place] | | | | | | [address] | | | | | | [phone] | | | +--------+ + + + [...] | 12/06/ | Office | Nephrology | aFrrukh Acuna MD | | | 2020 | Visit | | [address] [facility] | | | | | | [address] [place] | | | | | | [address] | | | | | | | [...]
--- OUTSIDE RECORDS SUMMARY | ~2019-11-04 | XMS | Encounter Summary ---
Demographics + + + | Address | [address] | | | [place] [address] | + + + | Home Phone [...] Team Providers + +------+ + | Care Newsperson Name | Role | Phone | + +------+ + | Rahul Silva MD | PCP | | + +------+ + Encounter Details +--------+ + + + + | Date | Type | Department | Care Team | Description | +--------+ + + + + | 10/03/ | Orders Only | [facility] | Collin Mirza, | | | 2015 | | NEPHROLOGY [place] | COMPLEX CASE MANAGER [address] | | | | | [address] [place] | [address] | | | | | [address] [place], [place] | [facility] | | | | | [address] | [address] | | | | | [phone] | [phone] | | | | | | | [...] [facility] | | | | | | [address] [facility] | | | | | | [address] | | | | | | | [...]
--- OUTSIDE RECORDS SUMMARY | ~2019-11-04 | XMS | Encounter Summary ---
Demographics + + + | Address | [address] | | | [place] [address] | + + + | Home Phone [...] +------+ + | Care Associate Professor Of Library Science Name | Role | Phone | + +------+ + | Rahul Silva MD | PCP | | + +------+ + Encounter Details +--------+ + + + + | Date | Type | Department | Care Team | Description | +--------+ + + + + | 09/07/ | Preadmit | [facility] | Brian Orosco MD | | | 2019 | Visit | CENTER PREADMIT | [address] | | | | | CLINIC [address] | [place], [place] | | | | | [place], [place] | [address] | | | | | [address] | [phone] | | | | | [phone] | | | +--------+ + + + [...] for the 09/07/19 encounter (Preadmit Visit) with [facility] ROOM 4 Medication Sig Instructions acyclovir [...] through Care Everywhere.Hemodialysis Ac cess, Creating a ([place] Islander)Dialysis, Arteriovenous (AV) Fistula for ([place] Islander)documented in th is encounter Plan of Treatment +--------+---------+ + + + | Date | Type | Specialty | Care Team | Description | +--------+---------+ + + + | 12/06/ | Office | Nephrology | Farrukh Acuna MD | | | 2019 | Visit | | [address] [facility] | | | | | | [address] [place], [place] | | | | | | [address] | | | | | | | [...] | | | | | | [facility]D [facility] traceable | | | | | | equation.Testing | | | | | | performed at [facility], [address] | | | | | | [facility], | | | | | | [place] [address] | | | | + + + + + + + + | Specimen | + + | Blood | + + + + + + + | Performing | Address | City/State/Zipcode | Phone Number | | Organization | | | | + + + + + | [facility] | [address] | [place] [address] | [phone] | + + + + + CBC [...] 0.09Comment: Testing | 0.00 - 0.10 | [facility] | | | Absolute | performed at [facility], [address] | K/uL | LABORATORY | | | | Adama Diaz, | | | | | | [place] [address] | | | | + + + + + + + + | Specimen | + + | Blood | + + + + + + + | Performing | Address | City/State/Zipcode | Phone Number | | Organization | | | | + + + + + | [facility] | [address] | [place] [address] | [phone] | + + + + + ECG [...]
--- OUTSIDE RECORDS SUMMARY | ~2019-11-04 | XMS | Encounter Summary ---
Demographics + + + | Address | [address] | | | [place] [address] | + + + | Home Phone [...] Team Providers + +------+ + | Care Dormitory Supervisor Name | Role | Phone | + +------+ + | Rahul Silva MD | PCP | | + +------+ + Encounter Details +--------+ + + + + | Date | Type | Department | Care Team | Description | +--------+ + + + + | 07/11/ | Orders Only | [facility] | Farrukh Acuna MD | | | 2013 | | NEPHROLOGY [place] | [address] [place] | | | | | [address] [place] | [address] [place], [place] | | | | | [address] [place], [place] | [address] | | | | | [address] | | | | | | [phone] | | | +--------+ + + + [...] | | | | | | [address] [place] | | | | | | [address] | | | | | | | [...] | | | LAB | | | [place] | | | | | + + [...]
--- OUTSIDE RECORDS SUMMARY | ~2019-11-04 | XMS | Encounter Summary ---
Demographics + + + | Address | [address] | | | [place] [address] | + + + | Home Phone [...] Team Providers + +------+ + | Care Build And Deployment Engineer Name | Role | Phone | [...] + + | 10/19/ | Documentati | [facility] | Simon, | Results (09/22/19) | | 2019 | on | NEPHROLOGY [place] | [facility] | | | | | [address] | Regulatory Compliance Specialist | | | | | [address] | | | | | | [place] | | | | | | [address] | | | | | | [phone] | | | +--------+ + + + [...] [place] | | | | | | [address] | | | | | | (Fax) [...]
--- OUTSIDE RECORDS SUMMARY | ~2019-11-04 | XMS | Encounter Summary ---
Demographics + + + | Address | [address] | | | [place] [address] | + + + | Home Phone [...] Providers + +------+ + | Care Superintendent Menagerie Name | Role | Phone | + [...] [address] Young | | | | | [place], [place] | [place], [place] | | | | | [address] | [address] | | | | | [phone] | [phone] | | | | | | | [...] HOSPITAL[facility] | | | | | | [address] | | | | | | | [...]
--- OUTSIDE RECORDS SUMMARY | ~2019-11-04 | XMS | Encounter Summary ---
Demographics + + + | Address | [address] | | | [place] [address] | + + + | Home Phone [...] Providers + +------+ + | Care Dispatcher Radio Name | Role | Phone | + +------+ + | Rahul Silva MD | PCP | | + +------+ + Encounter Details +--------+ + + + + | Date | Type | Department | Care Team | Description | +--------+ + + + + | 01/13/ | Orders Only | [facility] | Conversion | | | 2016 | | NEPHROLOGY [place] | Transaction, | | | | | [address] | Provider Unknown | | | | | [address] [place] | | | | | | [address] | (Fax) | | | | | [phone] | | | +--------+ + + + [...] [facility] | | | | | | [address] | | | | | | | [...] - 1.030 | EXTERNAL | | | [place] | | | LAB | | + [...]
--- OUTSIDE RECORDS SUMMARY | ~2019-11-04 | XMS | Encounter Summary ---
Demographics + + + | Address | [address] | | | [place] [address] | + + + | Home Phone [...] Team Providers + +------+ + | Care Buttoner Name | Role | Phone | + [...] | | | 2018 | | NEPRHOLOGY [place] | [address] | | | | | [address] [place] | [address] [place], [place] | | | | | [address] [place], [place] | [address] | | | | | [address] | | | | | | [phone] | | | +--------+ + + + [...] [place] | | | | | | [address] | | | | | | | [...]
--- OUTSIDE RECORDS SUMMARY | ~2019-11-04 | XMS | Encounter Summary ---
Demographics + + + | Address | [address] | | | [place] [address] | + + + | Home Phone [...] [place] | | | | | [address] | | + + + + + Care Team Providers + +------+ + | Care Sewing Department Supervisor Name | Role | Phone [...] Pavilion | | | | | | [place], [place] | | | | | | [address] | | | | | | [phone] | | | +--------+ + + + [...]
--- OUTSIDE RECORDS SUMMARY | ~2019-11-04 | XMS | Encounter Summary ---
Demographics + + + | Address | [address] | | | [place] [address] | + + + | Home Phone [...] Team Providers + +------+ + | Care Occupational Therapy Supervisor Name | Role | Phone | + +------+ + | Rahul Silva MD | PCP | | + +------+ + Encounter Details +--------+ + + + + | Date | Type | Department | Care Team | Description | +--------+ + + + + | 10/08/ | Orders Only | [facility] | Farrukh Acuna MD | | | 2016 | | NEPHROLOGY [place] | [address] [place] | | | | | [address] [place] | [address] [place], [place] | | | | | [address] [place], [place] | [address] | | | | | [address] | | | | | | [phone] | | | +--------+ + + + [...] [place] | | | | | | [address] | | | | | | | [...]
--- OUTSIDE RECORDS SUMMARY | ~2019-11-04 | XMS | Encounter Summary ---
Demographics + + + | Address | [address] | | | [place] [address] | + + + | Home Phone [...] Team Providers + +------+ + | Care Priest Name | Role | Phone | + [...] + + | 08/10/ | Telephone | [facility] | Brian Orosco MD | Other (orders ) | | 2019 | | VASCULAR SURGERY | [address] | | | | | [address] [place] | [place], [place] | | | | | [place], [place] | [address] | | | | | [address] | [phone] | | | | | [phone] | | | +--------+ + + + [...] [place] | | | | | | [address] | | | | | | (Fax) | | +--------+---------+ + + + documented as of this encounter Visit Diagnoses Not on filedocumented in this encounter"
--- OUTSIDE RECORDS SUMMARY | ~2019-11-04 | XMS | Encounter Summary ---
Demographics + + + | Address | [address] | | | [place] [address] | + + + | Home Phone [...] [place] | | | | | [address] | | + + + + + Care Team Providers + +------+ + | Care Cytology Teacher Name | Role | Phone | [...] | | | amputation | [place], | [place], [place] | | | | | stump, | [place] [address] | [address] | | | | | unspecified | Phone: | Phone: | | | | | | [phone] | [phone] | | | | | | Fax: | Fax: | | | | | | [phone] | [phone] | +--------+--------+ + + + + Encounter Details +--------+---------+ + + + | Date | Type | Department | Care Team | Description | +--------+---------+ + + + | 04/10/ | Office | [facility] Comprehensive | Seven Reilly MD | Low back pain; | | 2009 | Visit | Pain Center at | [address] | Herniated lumbar | | | | [facility] | [place], [place] | intervertebral disc; | | | | [address] | [address] | Stump pain (HCC) | | | | Mailcode: [facility] | [phone] | | | | | [facility] | | | | | | and Healing, | | | | | | Building | | | | | | Floor [place], [place] | | | | | | [address] | | | | | | [phone] | | | +--------+---------+ + + + [...] trainee's note. Seven Reilly MD, DABA, [facility] P DTMariano Martinez MD - 04/10/2010 12:30 PM PDT [facility] Office Visit 04/10/2010 Kavon Andujar; ; : 1940 Mr. Andujar was referred for pain management consultation by RAHUL COYNE MD [address] [place] [address], [place] [address] Reason for visit: Chief Complaint Patient presents [...] that the most effective treatments include: medications. PULLEY MORTISER OPERATOR Brief Pain Inventory: (ten= worst possible [...] above. As part of today's visit the [facility] new patient questionnaire [...] you expect from your visits to the [facility] ? Don't know [...] summary of old medical records (source: [employer]), as summarized in the body of the [...] generic medication. Follow up: none scheduled at [facility] [place]. Mariano Martinez MD Pain Fellow [facility] documented in this encounter Plan of [...]
--- OUTSIDE RECORDS SUMMARY | ~2019-11-04 | XMS | Encounter Summary ---
Demographics + + + | Address | [address] | | | [place] [address] | + + + | Home Phone [...] Team Providers + +------+ + | Care Artillery Or Naval Gunfire Observer Name | Role | Phone | [...] + + | 10/20/ | Telephone | [facility] | Alfred, | Mary (Tera F/U) | | 2018 | | NEPHROLOGY [place] | [facility] | | | | | [address] | Black Studies Professor | | | | | [address] | | | | | | [place] | | | | | | [address] | | | | | | [phone] | | | +--------+ + + + [...] | [address] [facility] [place] | | | | | | [address] | | | | | | | | +--------+---------+ + + + documented as of this encounter Visit Diagnoses Not on filedocumented in this encounter"
--- OUTSIDE RECORDS SUMMARY | ~2019-11-04 | XMS | Encounter Summary ---
Demographics + + + | Address | [address] | | | [place] [address] | + + + | Home Phone [...] [place] | | | | | [address] | | + + + + + Care Team Providers + +------+ + | Care Stretcher Leveler Operator Helper Name | Role | Phone [...] Clinic | | | | | | [facility], [address] | | | | | | [place], [place] | | | | | | [address] | | | | | | [phone] | | | +--------+ + + + [...] as of this encounter Progress Notes Interface, Scraper Burrer In - 12/25/2006 5:00 AM [facility] DATE: 03/16/98 PLASTIC SURGERY CLINIC [...] in the near future. Galo Arora M.D. President Practicing Urologist, Division of Plastic & Reconstructive Surgery AYDEE/alfred documented in this encounter Plan of Treatment Not on filedocumented as of this encounter Visit Diagnoses Not on filedocumented in this encounter"
--- OUTSIDE RECORDS SUMMARY | ~2019-11-04 | XMS | Encounter Summary ---
Demographics + + + | Address | [address] | | | [place] [address] | + + + | Home Phone [...] +------+ + | Care Fire Equipment Inspector Helper Name | Role | Phone | [...] [address] | | | | | [place], [place] | [place], [place] | | | | | [address] | [address] | | | | | [phone] | [phone] | | | | | | | [...] HOSPITAL[facility] | | | | | | [address] | | | | | | | [...]
--- OUTSIDE RECORDS SUMMARY | ~2019-11-04 | XMS | Encounter Summary ---
Demographics + + + | Address | [address] | | | [place] [address] | + + + | Home Phone [...] | NEPHROLOGY [place] | [facility] | | | | | [address] | Cutter Aluminum Sheet | | | | | [address] [place], [place] | | | | | | [address] | | | | | | [phone] | | | +--------+ + + + [...] | | | | | | [address] [place], [place] | | | | | | [address] | | | | | | | [...]
--- OUTSIDE RECORDS SUMMARY | ~2019-11-04 | XMS | Encounter Summary ---
Demographics + + + | Address | [address] | | | [place] [address] | + + + | Home Phone [...] Team Providers + +------+ + | Care Hatchery Attendant Name | Role | Phone | + +------+ + | Rahul Silva MD | PCP | | + +------+ + Encounter Details +--------+ + + + + | Date | Type | Department | Care Team | Description | +--------+ + + + + | 02/24/ | Orders Only | [facility] | Conversion | | | 2016 | | NEPHROLOGY [place] | Transaction, | | | | | [address] | Provider Unknown | | | | | [address] [place] | | | | | | [address] | (Fax) | | | | | [phone] | | | +--------+ + + + [...] | | | | | [facility] | | | | | | [address] | | | | | | | [...] - 1.030 | EXTERNAL | | | [place] | | | LAB | | + [...] | | | LAB | | | [place] | | | | | + + [...]
--- OUTSIDE RECORDS SUMMARY | ~2019-11-04 | XMS | Encounter Summary ---
Demographics + + + | Address | [address] | | | [place] [address] | + + + | Home Phone [...] Team Providers + +------+ + | Care Ballet Company Artistic Director Name | Role | Phone | [...] + + | 07/21/ | Documentati | [facility] | Simon, | Results (07/19/19) | | 2019 | on | NEPHROLOGY [place] | [facility] | | | | | [address] | Automobile Body Worker | | | | | [address] [place], [place] | | | | | | [address] | | | | | | [phone] | | | +--------+ + + + [...] | | | | | | [address] [place], [place] | | | | | | [address] | | | | | | | [...]
--- OUTSIDE RECORDS SUMMARY | ~2019-11-04 | XMS | Encounter Summary ---
Demographics + + + | Address | [address] | | | [place] [address] | + + + | Home Phone [...] [place] | | | | | [address] | | + + + + + Care Team Providers + +------+ + | Care Groundhand Name | Role | Phone | + +------+ + PCP | Unavailable | + +------+ + Encounter Details +--------+ + + + + | Date | Type | Department | Care Team | Description | +--------+ + + + + | 03/30/ | Results | | Other, Faculty | | | 1992 | Only | | [phone] | | +--------+ + + + + [...] | + + + | Ordered lulú FALCNO | | + + + + +---------+ + + | Performing | Address | City/State/Zipcode | Phone Number | | Organization | | | | + +---------+ + + | [facility] DEPARTMENT OF | | | | [...] | | + +---------+ + + | [facility] DEPARTMENT OF | | | | [...] | | | | | | | [id number] AND | | | | | | [...] | | + +---------+ + + | [facility] DEPARTMENT OF | | | | [...] | | + +---------+ + + | [facility] DEPARTMENT OF | | | | [...] | | | | | | | [id number] | | | | | | CHEST: [...] | | | | | | | [id number] | | | | | | CHEST: [...] | | | | | | | [id number], | | | | | | PORTABLE, [...] | | + +---------+ + + | [facility] DEPARTMENT OF | | | | [...] | | | | | | | [id number], | | | | | | PORTABLE, [...] and | | | | | | [place] Ganzcatheter are | | | | | [...] | | + +---------+ + + | [facility] DEPARTMENT OF | | | | [...] | | + +---------+ + + | [facility] DEPARTMENT OF | | | | [...] | | | | | | a [place]-Lupe catheter | | | | | | [...] | | | | placement of a [place]-Lupe | | | | | | catheter. CHEST, | | | | | | SINGLE AP PORTABLE: | | | | | | 03-31-93 AT 1000 HOURS | | | | | | FINDINGS: Since the | | | | | | prior study, the | | | | | | [place]-Lupe catheter has | | | | | [...] IMPRESSION: | | | | | | [place]-Lupe catheter | | | | | | [...] The | | | | | | [place]-Lupe catheter | | | | | | [...] and | | | | | | [place]-Lupe catheter | | | | | | [...] endotracheal | | | | | | tube,[place]-Lupe catheter | | | | | | [...] LAMAS, | | | | | | PROFIRIO NUNES F | | | | | [...] | | | | | | a [place]-Lupe catheter | | | | | | [...] | | | | placement of a [place]-Lupe | | | | | | catheter. CHEST, | | | | | | SINGLE AP PORTABLE: | | | | | | 03-31-93 AT 1000 HOURS | | | | | | FINDINGS: Since the | | | | | | prior study, the | | | | | | [place]-Lupe catheter has | | | | | [...] IMPRESSION: | | | | | | [place]-Lupe catheter | | | | | | [...] The | | | | | | [place]-Lupe catheter | | | | | | [...] and | | | | | | [place]-Lupe catheter | | | | | | [...] endotracheal | | | | | | tube,[place]-Lupe catheter | | | | | | [...] | | + +---------+ + + | [facility] DEPARTMENT OF | | | | [...] | | | | | | a [place]-Lupe catheter | | | | | | [...] | | | | placement of a [place]-Lupe | | | | | | catheter. CHEST, | | | | | | SINGLE AP PORTABLE: | | | | | | 03-31-93 AT 1000 HOURS | | | | | | FINDINGS: Since the | | | | | | prior study, the | | | | | | [place]-Lupe catheter has | | | | | [...] IMPRESSION: | | | | | | [place]-Lupe catheter | | | | | | [...] The | | | | | | [place]-Lupe catheter | | | | | | [...] and | | | | | | [place]-Lupe catheter | | | | | | [...] endotracheal | | | | | | tube,[place]-Lupe catheter | | | | | | [...] | | + +---------+ + + | [facility] DEPARTMENT OF | | | | [...] | | | | | | a [place]-Lupe catheter | | | | | | [...] | | | | placement of a [place]-Lupe | | | | | | catheter. CHEST, | | | | | | SINGLE AP PORTABLE: | | | | | | 03-31-93 AT 1000 HOURS | | | | | | FINDINGS: Since the | | | | | | prior study, the | | | | | | [place]-Lupe catheter has | | | | | [...] IMPRESSION: | | | | | | [place]-Lupe catheter | | | | | | [...] The | | | | | | [place]-Lupe catheter | | | | | | [...] and | | | | | | [place]-Lupe catheter | | | | | | [...] endotracheal | | | | | | tube,[place]-Lupe catheter | | | | | | [...] | | + +---------+ + + | [facility] DEPARTMENT OF | | | | [...] | | | | | | a [place]-Lupe catheter | | | | | | [...] | | | | placement of a [place]-Lupe | | | | | | catheter. CHEST, | | | | | | SINGLE AP PORTABLE: | | | | | | 03-31-93 AT 1000 HOURS | | | | | | FINDINGS: Since the | | | | | | prior study, the | | | | | | [place]-Lupe catheter has | | | | | [...] IMPRESSION: | | | | | | [place]-Lupe catheter | | | | | | [...] The | | | | | | [place]-Lupe catheter | | | | | | [...] and | | | | | | [place]-Lupe catheter | | | | | | [...] endotracheal | | | | | | tube,[place]-Lupe catheter | | | | | | [...] | | | | | [facility] | | | | | [...] | | | | | | a [place]-Lupe catheter | | | | | | [...] | | | | placement of a [place]-Lupe | | | | | | catheter. CHEST, | | | | | | SINGLE AP PORTABLE: | | | | | | 03-31-93 AT 1000 HOURS | | | | | | FINDINGS: Since the | | | | | | prior study, the | | | | | | [place]-Lupe catheter has | | | | | [...] IMPRESSION: | | | | | | [place]-Lupe catheter | | | | | | [...] The | | | | | | [place]-Lupe catheter | | | | | | [...] and | | | | | | [place]-Lupe catheter | | | | | | [...] endotracheal | | | | | | tube,[place]-Lupe catheter | | | | | | [...] | | | | | | a [place]-Lupe catheter | | | | | | [...] | | | | placement of a [place]-Lupe | | | | | | catheter. CHEST, | | | | | | SINGLE AP PORTABLE: | | | | | | 03-31-93 AT 1000 HOURS | | | | | | FINDINGS: Since the | | | | | | prior study, the | | | | | | [place]-Lupe catheter has | | | | | [...] IMPRESSION: | | | | | | [place]-Lupe catheter | | | | | | [...] The | | | | | | [place]-Lupe catheter | | | | | | [...] and | | | | | | [place]-Lupe catheter | | | | | | [...] endotracheal | | | | | | tube,[place]-Lupe catheter | | | | | | [...]
--- OUTSIDE RECORDS SUMMARY | ~2019-11-04 | XMS | Encounter Summary ---
Demographics + + + | Address | [address] | | | [place] [address] | + + + | Home Phone [...] Providers + +------+ + | Care Senior Talent Management Consultant Name | Role | Phone [...] POPLAR | (cancellation) | | | | [place], | [place], [place] | | | | | [place] [address] | [address] | | | | | [phone] | | | +--------+ + + + [...] [place] | | | | | | [address] | | | | | | | | +--------+---------+ + + + documented as of this encounter Visit Diagnoses Not on filedocumented in this encounter"
--- OUTSIDE RECORDS SUMMARY | ~2019-11-04 | XMS | Encounter Summary ---
Demographics + + + | Address | [address] | | | [place] [address] | + + + | Home Phone [...] Providers + +------+ + | Care Hat Finisher Name | Role | Phone | + +------+ + | Rahul Silva MD | PCP | | + +------+ + Encounter Details +--------+ + + + + | Date | Type | Department | Care Team | Description | +--------+ + + + + | 10/01/ | Telephone | [facility] | Farrukh Acuna MD | | | 2018 | | NEPHFLORES [place] | [address] [facility] | | | | | [address] | [address] [place], [place] | | | | | [place] [address] | [address] | | | | | [address] | | | | | | [phone] | | | +--------+ + + + [...] | | | | | [address] [facility] | | | | | | [address] | | | | | | | | +--------+---------+ + + + documented as of this encounter Visit Diagnoses Not on filedocumented in this encounter"
--- OUTSIDE RECORDS SUMMARY | ~2019-11-04 | XMS | Encounter Summary ---
Demographics + + + | Address | [address] | | | [place] [address] | + + + | Home Phone [...] Providers + +------+ + | Care Motorcycle Mechanic Name | Role | Phone | + +------+ + | Rahul Silva MD | PCP | | + +------+ + Encounter Details +--------+ + + + + | Date | Type | Department | Care Team | Description | +--------+ + + + + | 07/14/ | Orders Only | [facility] | Conversion | | | 2018 | | NEPRHOLOGY [place] | Transaction, | | | | | [address] | Provider Unknown | | | | | [address] [place], [place] | [phone] | | | | | [address] | (Fax) | | | | | [phone] | | | +--------+ + + + [...] | | | | | [address] [place] | | | | | | [address] | | | | | | | [...]
--- OUTSIDE RECORDS SUMMARY | ~2019-11-04 | XMS | Encounter Summary ---
Demographics + + + | Address | [address] | | | [place] [address] | + + + | Home Phone [...] Team Providers + +------+ + | Care Radar Systems Engineer Name | Role | Phone | + +------+ + | Rahul Silva MD | PCP | | + +------+ + Encounter Details +--------+ + + + + | Date | Type | Department | Care Team | Description | +--------+ + + + + | 09/18/ | Orders Only | [facility] | Conversion | | | 2018 | | NEPHROLOGY [place] | Transaction, | | | | | [address] | Provider Unknown | | | | | [address] [place] | | | | | | [address] | (Fax) | | | | | [phone] | | | +--------+ + + + [...] HOSPITALRADHA | | | | | | [address] | | | | | | | [...]
--- OUTSIDE RECORDS SUMMARY | ~2019-11-04 | XMS | Encounter Summary ---
Demographics + + + | Address | [address] | | | [place] [address] | + + + | Home Phone [...] Providers + +------+ + | Care Seat Scooper Machine Name | Role | Phone | + +------+ + | Rahul Silva MD | PCP | | + +------+ + Encounter Details +--------+ + + + + | Date | Type | Department | Care Team | Description | +--------+ + + + + | 05/27/ | Orders Only | [facility] | Conversion | | | 2019 | | NEPHROLOGY [place] | Transaction, | | | | | [address] | Provider Unknown | | | | | [address] [place] | | | | | | [address] | (Fax) | | | | | [phone] | | | +--------+ + + + [...] HOSPITALRADHA | | | | | | [address] | | | | | | | [...]
--- OUTSIDE RECORDS SUMMARY | ~2019-11-04 | XMS | Encounter Summary ---
Demographics + + + | Address | [address] | | | [place] [address] | + + + | Home Phone [...] Providers + +------+ + | Care Ceramic Tile Setter Name | Role | Phone | [...] [place] | | | | | | [address] | (Fax) | | | | | [phone] | | | +--------+ + + + [...] | | | | [address] [facility] | | | | | | [address] | | | | | | | [...]
--- OUTSIDE RECORDS SUMMARY | ~2019-11-04 | XMS | Encounter Summary ---
Demographics + + + | Address | [address] | | | [place] [address] | + + + | Home Phone [...] Providers + +------+ + | Care Ui Architect Name | Role | Phone | [...] | | | stage 5, GFR | [address] | | | | | | less than | Phone: | | | | | | 15 ml/min | [phone] | | | | | | ([facility]) | Fax: | | | | | | Procedures | [phone] | | | | | | VAS [...] + + | 10/20/ | Hospital | [facility] | Trisha Conner DNP | CKD (chronic kidney | | 2018 | Encounter | VASCULAR SURGERY | [address] | disease) stage 5, | | | | ULTRASOUND [address] | [place] [address] | GFR less than 15 | | | | [place] | [address] | ml/min (HCC) | | | | [place], [place] | | | | | | [address] | | | | | | [phone] | | | +--------+ + + + [...] | | | | | | ([facility]) | | | | | [...] HOSPITALRADHA | | | | | | [address] | | | | | | | [...]
--- OUTSIDE RECORDS SUMMARY | ~2019-11-04 | XMS | Encounter Summary ---
Demographics + + + | Address | [address] | | | [place] [address] | + + + | Home Phone [...] Providers + +------+ + | Care Travel Counselor Name | Role | Phone | + +------+ + | Rahul Silva MD | PCP | | + +------+ + Encounter Details +--------+ + + + + | Date | Type | Department | Care Team | Description | +--------+ + + + + | 03/24/ | Orders Only | [facility] | Farrukh Acuna MD | | | 2017 | | NEPHROLOGY [place] | [address] [place] | | | | | [address] [place] | [address] [place], [place] | | | | | [address] [place], [place] | [address] | | | | | [address] | | | | | | [phone] | | | +--------+ + + + [...] [place] | | | | | | [address] | | | | | | | [...]
--- OUTSIDE RECORDS SUMMARY | ~2019-11-04 | XMS | Encounter Summary ---
Demographics + + + | Address | [address] | | | [place] [address] | + + + | Home Phone [...] Providers + +------+ + | Care Ict Trainer Name | Role | Phone | [...] [place] | | | | | | [address] | (Fax) | | | | | [phone] | | | +--------+ + + + [...] [place] | | | | | | [address] | | | | | | | [...]
--- OUTSIDE RECORDS SUMMARY | ~2019-11-04 | XMS | Encounter Summary ---
Demographics + + + | Address | [address] | | | [place] [address] | + + + | Home Phone [...] Providers + +------+ + | Care Film Cutter Name | Role | Phone | + +------+ + | Rahul Silva MD | PCP | | + +------+ + Encounter Details +--------+ + + + + | Date | Type | Department | Care Team | Description | +--------+ + + + + | 08/31/ | Orders Only | [facility] | Farrukh Acuna MD | | | 2013 | | NEPHROLOGY [place] | [address] [place] | | | | | [address] [place] | [address] [place], [place] | | | | | [address] [place], [place] | [address] | | | | | [address] | | | | | | [phone] | | | +--------+ + + + [...] | | | | | | [address] [place] | | | | | | [address] | | | | | | | [...] | | | LAB | | | SAMOAN | | | | | + + [...]
--- OUTSIDE RECORDS SUMMARY | ~2019-11-04 | XMS | Encounter Summary ---
Demographics + + + | Address | [address] | | | [place] [address] | + + + | Home Phone [...] Team Providers + +------+ + | Care Qa Consultant Name | Role | Phone | + +------+ + | Rahul Silva MD | PCP | | + +------+ + Encounter Details +--------+ + + + + | Date | Type | Department | Care Team | Description | +--------+ + + + + | 01/13/ | Orders Only | [facility] | Conversion | | | 2016 | | NEPHROLOGY [place] | Transaction, | | | | | [address] | Provider Unknown | | | | | [address] [place] | | | | | | [address] | (Fax) | | | | | [phone] | | | +--------+ + + + [...] | | | | | | [address] [facility] | | | | | | [address] | | | | | | | [...] - 1.030 | EXTERNAL | | | [place] | | | LAB | | + [...] | | | LAB | | | [place] | | | | | + + [...]
--- OUTSIDE RECORDS SUMMARY | ~2019-11-04 | XMS | Encounter Summary ---
Demographics + + + | Address | [address] | | | [place] [address] | + + + | Home Phone [...] Team Providers + +------+ + | Care Microfiche Duplicator Name | Role | Phone | + [...] + + | 09/17/ | Documentati | [facility] | Oly Alvarenga | Labs Only ([facility] | | 2019 | on | NEPRHOLOGY [place] | V, Medical | 08/24/19) | | | | [address] | Cap Coverer | | | | | [address] [place], [place] | | | | | | [address] | | | | | | [phone] | | | +--------+ + + + [...] | | | | | | [address] [place], [place] | | | | | | [address] | | | | | | | [...] + + | REFERENCE LAB | [address] [facility] | [place] [address] | [phone] | | [facility] | | | | + + + + + | REFERENCE LAB | [address] [place] [address] | [place] [address] | [phone] | | [facility] | | | | + + + + + documented in this encounter Visit Diagnoses Not on filedocumented in this encounter"
--- OUTSIDE RECORDS SUMMARY | ~2019-11-04 | XMS | Encounter Summary ---
Demographics + + + | Address | [address] | | | [place] [address] | + + + | Home Phone [...] Team Providers + +------+ + | Care Dimensional Integration Engineer Name | Role | Phone | [...] Unknown | | | | | [address] [place], [place] | [phone] | | | | | [address] | (Fax) | | | | | [phone] | | | +--------+ + + + [...] | | | | | | [address] [place] | | | | | | [address] | | | | | | | [...]
--- OUTSIDE RECORDS SUMMARY | ~2019-11-04 | XMS | Encounter Summary ---
Demographics + + + | Address | [address] | | | [place] [address] | + + + | Home Phone [...] | [facility] | | | and [...] Providers + +------+ + | Care Power Switchboard Operator Name | Role | Phone | + +------+ + | Rahul Silva MD | PCP | | + +------+ + Encounter Details +--------+ + + + + | Date | Type | Department | Care Team | Description | +--------+ + + + + | 05/27/ | Orders Only | [facility] | Farrukh Acuna MD | | | 2017 | | NEPHROLOGY [place] | [address] [place] | | | | | [address] [place] | [address] [place], [place] | | | | | [address] [place], [place] | [address] | | | | | [address] | | | | | | [phone] | | | +--------+ + + + [...] [facility] | | | | | | [address] [place] | | | | | | [address] | | | | | | | [...]
--- OUTSIDE RECORDS SUMMARY | ~2019-11-04 | XMS | Encounter Summary ---
Demographics + + + | Address | [address] | | | [place] [address] | + + + | Home Phone [...] [place] | | | | | [address] | | + + + + + Care Team Providers + +------+ + | Care Stabilizer Operator Name | Role | Phone | [...] [id number] | | | | | | [place], [place] | | | | | | [address] | | | | | | [phone] | | | +--------+ + + + [...] | + + + + + | [facility] | [address] | [place] [address] | | | PATHOLOGY | [address] [...] | + + + + + | [facility] | [address] | [place] [address] | | | PATHOLOGY | [address] [...] | + + + + + | [facility] | [address] | [place] [address] | | | PATHOLOGY | [address] [...] | + + + + + | [facility] | [address] | [place] [address] | | | PATHOLOGY | [address] | | | + + + + + documented in this encounter Visit Diagnoses Not on filedocumented in this encounter
--- OUTSIDE RECORDS SUMMARY | ~2019-11-04 | XMS | Encounter Summary ---
Demographics + + + | Address | [address] | | | [place] [address] | + + + | Home Phone [...] Providers + +------+ + | Care Medical Billing Coordinator Name | Role | Phone | + +------+ + | Rahul Silva MD | PCP | | + +------+ + Encounter Details +--------+ + + + + | Date | Type | Department | Care Team | Description | +--------+ + + + + | 05/22/ | Orders Only | [facility] | Farrukh Acuna MD | | | 2018 | | NEPHROLOGY [place] | [address] [place] | | | | | [address] [place] | [address] [place], [place] | | | | | [address] [place], [place] | [address] | | | | | [address] | | | | | | [phone] | | | +--------+ + + + [...] [place] | | | | | | [address] | | | | | | | [...]
--- OUTSIDE RECORDS SUMMARY | ~2019-11-04 | XMS | Encounter Summary ---
Demographics + + + | Address | [address] | | | [place] [address] | + + + | Home Phone [...] + +------+ + | Care New Car Make Ready Worker Name | Role | Phone | + +------+ + PCP | Unavailable | + +------+ + Encounter Details +--------+ + + + + | Date | Type | Department | Care Team | Description | +--------+ + + + + | 07/18/ | [facility] | [facility] | Nelson Lutz MD | | | 2002 | Encounter | MED CTR GENERIC OP | [address], [place] | | | | | CONV DEPT [address] | [address] [place] | | | | | [address] [place], | [address] | | | | | [place] [address] | | | | | | [phone] | | | +--------+ + + + [...] | | | | | | [address] [place] | | | | | | [address] | | | | | | | | +--------+---------+ + + + documented as of this encounter Visit Diagnoses Not on filedocumented in this encounter"
--- OUTSIDE RECORDS SUMMARY | ~2019-11-04 | XMS | Encounter Summary ---
Demographics + + + | Address | [address] | | | [place] [address] | + + + | Home Phone [...] Providers + +------+ + | Care Gold Burnisher Name | Role | Phone | + +------+ + PCP | Unavailable | + +------+ + Encounter Details +--------+ + + + + | Date | Type | Department | Care Team | Description | +--------+ + + + + | 12/22/ | Transcribed | [facility] at | [place], Other | Transcribed | | 1997 | | [facility] [address] | | | | | | [address] | | | | | | Mailcode: [address] | | | | | | [address] | | | | | | [place], | | | | | | [place] [address] | | | | | | [phone] | | | +--------+ + + + [...] as of this encounter Progress Notes Interface, Glass Ribbon Machine Operator Assistant In - 01/03/2007 5:08 AM PST [address] [address] Department of Orthopaedics, [facility] OP19 December 21, 1997 Jerry Smiley M.D. [address] [place] [address] RE:Kavon Andujar MR#:[id number] Smiley: Thank [...] Carlson might like. Sincerely, Eric Mcclure M.D. Element Winding Machine Tender, Department of Orthopaedics and Rehabilitation ERICK/sara A documented in this encounter Plan of Treatment Not on filedocumented as of this encounter Visit Diagnoses Not on filedocumented in this encounter"
--- OUTSIDE RECORDS SUMMARY | ~2019-11-04 | XMS | Encounter Summary ---
Demographics + + + | Address | [address] | | | [place] [address] | + + + | Home Phone [...] Team Providers + +------+ + | Care Cans Vacuum Tester Name | Role | Phone | + +------+ + | Rahul Silva MD | PCP | | + +------+ + Encounter Details +--------+---------+ + + + | Date | Type | Department | Care Team | Description | +--------+---------+ + + + | 07/26/ | Office | [facility] | Farrukh Acuna MD | Stage 5 chronic | | 2019 | Visit | NEPHROLOGY [place] | [address] [place] | kidney disease not | | | | [address] | [address] [place], [place] | on chronic dialysis | | | | [address] | [address] | (HCC) (Primary Dx); | | | | [place], [place] | | Edema of lower | | | | [address] | | extremity; Tobacco | | | | [phone] | | dependence syndrome; | | | [...] Also: I see no need for acute SPONSORSHIP COORDINATOR. I see no need to send him [...] Notes by Farrukh Acuna MD at 05/31/19 8782 Author: Farrukh Acuna MD Service: (none) Author Type: Physician Filed: 05/31/19 1232 Encounter Date: 05/31/2019 Status: Signed Consumer Credit Counselor: Farrukh Acuna MD (Physician) Patient Active Problem List Diagnosis CKD (chronic kidney disease), stage IV Type 2 diabetes mellitus with diabetic nephropathy, with long-term current use of insul in ([facility]) FH: HTN (hypertension) Edema of [...] 10/2016 with severe pneumonia, severe ZEKE; needed SPONSORSHIP COORDINATOR for ~5 weeks b efore renal function recovery mid 12/2016. He was admitted to [facility] for 3 nights in July 2016 [...] 19.5 (A) 05/27/2019 LABPROT 2,445.6 (A) 03/01/2019 [id number] 10/08/2018 Assessment: Mr. Andujar is a 78 y.o. male patient with stage IV CKD on a background of diabetes & hypert ension and recent hospitalization for C-diff and hehydration. The most likely pathology here is that of diabetic nephropathy +/- hypertensive nephrosclerosis/arteriolosclerosis. He was hospitalized in 10/2016 with severe pneumonia, severe ZEKE; needed SPONSORSHIP COORDINATOR for ~5 weeks b efore renal function [...] Also: I see no need for acute SPONSORSHIP COORDINATOR. I see no need to send him [...] Truly yours, Farrukh Acuna MD FACP, [facility], FA documented in this enco unter Plan of Treatment +--------+---------+ + + + | Date | Type | Specialty | Care Team | Description | +--------+---------+ + + + | 12/06/ | Office | Nephrology | Farrukh Acuna MD | | | 2019 | Visit | | [address] [facility] | | | | | | [address] [place], [place] | | | | | | [address] | | | | | | | [...]
--- OUTSIDE RECORDS SUMMARY | ~2019-11-04 | XMS | Encounter Summary ---
Demographics + + + | Address | [address] | | | [place] [address] | + + + | Home Phone [...] Team Providers + +------+ + | Care Ribbon Blockmaker Name | Role | Phone | + +------+ + | Rahul Silva MD | PCP | | + +------+ + Encounter Details +--------+ + + + + | Date | Type | Department | Care Team | Description | +--------+ + + + + | 06/23/ | Orders Only | [facility] | Farrukh Acuna MD | | | 2018 | | NEPHROLOGY [place] | [address] [place] | | | | | [address] [place] | [address] [place], [place] | | | | | [address] [place], [place] | [address] | | | | | [address] | | | | | | [phone] | | | +--------+ + + + [...] [place] | | | | | | [address] | | | | | | | [...]
--- OUTSIDE RECORDS SUMMARY | ~2019-11-04 | XMS | Encounter Summary ---
Demographics + + + | Address | [address] | | | [place] [address] | + + + | Home Phone [...] Providers + +------+ + | Care Second Floor Operator Name | Role | Phone | + +------+ + | Rahul Silva MD | PCP | | + +------+ + Encounter Details +--------+ + + + + | Date | Type | Department | Care Team | Description | +--------+ + + + + | 02/15/ | Orders Only | [facility] | Conversion | | | 2019 | | NEPHROLOGY [place] | Transaction, | | | | | [address] [place] | Provider Unknown | | | | | [address] [place] | | | | | | [address] | (Fax) | | | | | [phone] | | | +--------+ + + + [...] | | | | | [address] [facility] | | | | | | [address] | | | | | | | [...]
--- OUTSIDE RECORDS SUMMARY | ~2019-11-04 | XMS | Encounter Summary ---
Demographics + + + | Address | [address] | | | [place] [address] | + + + | Home Phone [...] Providers + +------+ + | Care Retail Leader Name | Role | Phone | [...] | Transaction, | | | | | [place], [place] | Provider Unknown | | | | | [address] | | | | | | [phone] | | | +--------+ + + + [...] [place] | | | | | | [address] | | | | | | | [...]
--- OUTSIDE RECORDS SUMMARY | ~2019-11-04 | XMS | Encounter Summary ---
Demographics + + + | Address | [address] | | | [place] [address] | + + + | Home Phone [...] Providers + +------+ + | Care General Cargo Clerk Name | Role | Phone | + +------+ + | Rahul Silva MD | PCP | | + +------+ + Encounter Details +--------+ + + + + | Date | Type | Department | Care Team | Description | +--------+ + + + + | 07/27/ | Orders Only | [facility] | Farrukh Acuna MD | Chronic kidney | | 2019 | | NEPHROLOGY [place] | [address] [place] | disease, stage IV | | | | [address] [place] | [address] [place], [place] | (severe) (HCC); | | | | [address] [place], [place] | [address] | Chronic kidney | | | | [address] | | disease, stage IV | | | | [phone] | | (severe) (HCC); | | | [...] [place] | | | | | | [address] | | | | | | | [...]
--- OUTSIDE RECORDS SUMMARY | ~2019-11-04 | XMS | Encounter Summary ---
Demographics + + + | Address | [address] | | | [place] [address] | + + + | Home Phone [...] [place] | | | | | [address] | | + + + + + Care Team Providers + +------+ + | Care Truck Caterer Name | Role | Phone | + [...] SW | Clinic | | | | criugrinder | [address] | | | | | | Mailcode: [id number] | | | | | | Outpatient Clinic | | | | | | [facility], [address] | | | | | | [place], [place] | | | | | | [address] | | | | | | [phone] | | | +--------+ + + + [...] as of this encounter Progress Notes Interface, Drop Count Associate In - 01/22/2007 3:04 AM PST CLINIC DATE: 06/07/97 NEUROLOGY CLINIC HISTORY OF PRESENT ILLNESS: Mr. Andujar is a 56 year-old male who is being evaluated in the Clinic for problems with balance and tremulousness of both upper extremities. He has been referred to this Clinic by Dr. Valles from [place], [place], and has also previously undergone extensive evaluations in the Neurosurgical Clinic and at Vascular Surgery at [facility]. His most recent hospitalization to [facility] was December 28, 1996, [...] evaluation in the Pain Management Clinic at [facility] and previous trials of Neurontin and mexiletine hydrochloride apparently appears to have been unsuccessful. Shortly following his December hospitalization at [facility], Mr. Andujar apparently became comatose in January from an accidental overdose of Darvon for which he was admitted to [facility] in [place], [place]. The details pertaining to this hospitalization are currently not available but as per Mr. Andujar, he was in a coma for a six day period and upon recovery noted tremulousness of both upper extremities, worse on his left than on his right. Prior to his hospitalization at [facility] and following his discharge from [facility], he apparently was ambulating with crutches since the stump pain precluded the use of his left lower extremity prosthesis. Since his discharge from [facility], however, he has been experiencing increasing problems with balance and apparently has fallen on several occasions. The head CT-scan that was done at [facility], dated February 07, 1997, reveals a low attenuation area in the left anterior basal ganglia felt to represent a small lacunar infarct, with no other significant abnormality. Mr. Andujar states that during the course of his hospitalization at [facility] he apparently fell on three occasions sustaining occipital head trauma but did not undergo subsequent brain imaging studies. His stay at [facility] lasted two weeks. By his report, [...] Mr. Andujar specifically denies impairment of hand network support administrator, impaired strength in either upper extremity or [...] currently lives in a Foster Home in [place], [place]. 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 He currently smokes one-half dzts-evw-oey since age 23. Denies current alcohol use [...] in turn led to his hospitalization at [facility] in January 1997 for coma at [...] procedures for pain relief. Michelle Landon M.D. Implementation Engineer, Neurology GN:fermin C: 06/28/97 cc: RUBIA VALLES MD [address] [facility] [address] Alina Moise M.D. Professor and Clinical Application Specialist, Division of Neurosurgery Robert Carlson M.D. Professor, Vascular Surgery documented in this encounter Plan of Treatment Not on filedocumented as of this encounter Visit Diagnoses Not on filedocumented in this encounter"
--- OUTSIDE RECORDS SUMMARY | ~2019-11-04 | XMS | Encounter Summary ---
Demographics + + + | Address | [address] | | | [place] [address] | + + + | Home Phone [...] [place] | | | | | [address] | | + + + + + Care Team Providers + +------+ + | Care Group Tester Name | Role | Phone | [...] | | | | | | [place], | | | | | | [place] [address] | | | | | | [phone] | | | +--------+ + + + [...] as of this encounter Discharge Summaries Interface, Climate Change Analyst In - 12/22/2006 3:12 AM PST [address] [address] [facility] MEDICAL SUMMARY OF HOSPITALIZATION Med Rec No.: [id number] Admission Date: 04/06/98 Name: Kavon Andujar Discharge Date: 04/08/98 STAFF PHYSICIAN: Galo Arora M.D. Tire Trucker, Division of Plastic & Reconstructive Surgery PRINCIPAL [...] M.D. Resident, Plastic Surgery Galo Arora M.D. Tire Trucker, Division of Plastic & Reconstructive Surgery QIANA/charo P cc: GRIFFIN ASHER MD [address] [facility] [place] [address] documented in this encounter Plan of Treatment Not on filedocumented as of this encounter Visit Diagnoses Not on filedocumented in this encounter"
--- OUTSIDE RECORDS SUMMARY | ~2019-11-04 | XMS | Encounter Summary ---
Demographics + + + | Address | [address] | | | [place] [address] | + + + | Home Phone [...] Providers + +------+ + | Care Slurry Plant Operator Name | Role | Phone | + +------+ + | Rahul Silva MD | PCP | | + +------+ + Encounter Details +--------+ + + + + | Date | Type | Department | Care Team | Description | +--------+ + + + + | 10/01/ | Telephone | [facility] | Farrukh Acuna MD | | | 2018 | | NEPHFLORES [place] | [address] [facility] [address] | | | | | [address] | [address] [place], [place] | | | | | [place] [address] | [address] | | | | | [address] | | | | | | [phone] | | | +--------+ + + + [...] [facility] | | | | | | [address] [facility] | | | | | | [address] | | | | | | | | +--------+---------+ + + + documented as of this encounter Visit Diagnoses Not on filedocumented in this encounter"
--- OUTSIDE RECORDS SUMMARY | ~2019-11-04 | XMS | Encounter Summary ---
Demographics + + + | Address | [address] | | | [place] [address] | + + + | Home Phone [...] + +------+ + | Care Air Conditioning Supervisor Name | Role | Phone | [...] + + | 09/13/ | Telephone | [facility] | Terri Aguilar, | Follow-up | | 2018 | | VASCULAR SURGERY | Neurobiologist | | | | | [address] | | | | | | [facility] [place] | | | | | | [address] | | | | | | [phone] | | | +--------+ + + + [...] | | | | | | [address] [place] | | | | | | [address] | | | | | | | | +--------+---------+ + + + documented as of this encounter Visit Diagnoses Not on filedocumented in this encounter"
--- OUTSIDE RECORDS SUMMARY | ~2019-11-04 | XMS | Encounter Summary ---
Demographics + + + | Address | [address] | | | [place] [address] | + + + | Home Phone [...] Team Providers + +------+ + | Care Biology Research Assistant Name | Role | Phone | [...] | | 2016 | | [address] | Transaction, | | | | | [place], [place] | Provider Unknown | | | | | [address] | | | | | | [phone] | | | +--------+ + + + [...] [place] | | | | | | [address] | | | | | | | [...]
--- OUTSIDE RECORDS SUMMARY | ~2019-11-04 | XMS | Encounter Summary ---
Demographics + + + | Address | [address] | | | [place] [address] | + + + | Home Phone [...] Providers + +------+ + | Care Molding Machine Setter Name | Role | Phone | + +------+ + | Rahul Silva MD | PCP | | + +------+ + Encounter Details +--------+ + + + + | Date | Type | Department | Care Team | Description | +--------+ + + + + | 03/13/ | Orders Only | [facility] | Conversion | | | 2016 | | NEPHROLOGY [place] | Transaction, | | | | | [address] | Provider Unknown | | | | | [address] [place] | | | | | | [address] | (Fax) | | | | | [phone] | | | +--------+ + + + [...] HOSPITAL[facility] | | | | | | [address] | | | | | | | [...] - 1.030 | EXTERNAL | | | [place] | | | LAB | | + [...] | | | LAB | | | SRI [place] | | | | | + + [...]
--- OUTSIDE RECORDS SUMMARY | ~2019-11-04 | XMS | Encounter Summary ---
Demographics + + + | Address | [address] | | | [place] [address] | + + + | Home Phone [...] [place] | | | | | [address] | | + + + + + Care Team Providers + +------+ + | Care Composition Mixer Name | Role | Phone | [...] as of this encounter Progress Notes Interface, Strategy Associate In - 11/10/2006 2:27 AM PSTCLINIC DATE: [...] he embarked on this. Galo Arora M.D. Billing Specialist, Plastic and Reconstructive Surgery [id number] / [id number] / [id number] / [id number] cc: Nelson Melara M.D. Anesthesiology. [facility]. [id number] signed by Interface, Strategy Associate In at 11/10/2006 2:27 AM PSTdocume nted in this encounter Plan of Treatment Not on filedocumented as of this encounter Visit Diagnoses Not on filedocumented in this encounter"
--- OUTSIDE RECORDS SUMMARY | ~2019-11-04 | XMS | Encounter Summary ---
Demographics + + + | Address | [address] | | | [place] [address] | + + + | Home Phone [...] Providers + +------+ + | Care Supply Service Worker Name | Role | Phone | + +------+ + | Rahul Silva MD | PCP | | + +------+ + Encounter Details +--------+ + + + + | Date | Type | Department | Care Team | Description | +--------+ + + + + | 07/30/ | Orders Only | [facility] | Conversion | | | 2016 | | NEPRHOLOGY [place] | Transaction, | | | | | [address] | Provider Unknown | | | | | [address] [place], [place] | [phone] | | | | | [address] | (Fax) | | | | | [phone] | | | +--------+ + + + [...] | [address] [facility] | | | | | | [address] | | | | | | | [...]
--- OUTSIDE RECORDS SUMMARY | ~2019-11-04 | XMS | Encounter Summary ---
Demographics + + + | Address | [address] | | | [place] [address] | + + + | Home Phone [...] Providers + +------+ + | Care Joint Yarner Name | Role | Phone | + [...] [address] | | | | | [place], [place] | [place], [place] | | | | | [address] | [address] | | | | | [phone] | [phone] | | | | | | | [...] HOSPITALRADHA | | | | | | [address] | | | | | | | [...]
--- OUTSIDE RECORDS SUMMARY | ~2019-11-04 | XMS | Encounter Summary ---
Demographics + + + | Address | [address] | | | [place] [address] | + + + | Home Phone [...] [place] | | | | | [address] | | + + + + + Care Team Providers + +------+ + | Care Steam Heating Installer Name | Role | Phone | + +------+ + PCP | Unavailable | + +------+ + Encounter Details +--------+ + + + + | Date | Type | Department | Care Team | Description | +--------+ + + + + | 09/09/ | Transcribed | Allergy Clinic at | [place], Other | Transcribed | | 1995 | | [facility] [address] | | | | | | [address] | | | | | | Mailcode: [id number] [address] | | | | | | [address] | | | | | | [place], | | | | | | [place] [address] | | | | | | [phone] | | | +--------+ + + + [...] as of this encounter Progress Notes Interface, Application Development Team Lead In - 02/14/2007 3:12 AM PDT [address] [address] or September 09, 1996 Nestor VALLES MD [address] [place] [address] RE: PORFIRIO ZAVALA MR#: [id number] Valles: Your patient, Porfirio Zavala, was seen for follow up today in the Neurosurgery Clinic at [facility]. 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 Following our initial evaluation, we recommended [...] Fellow, Neurosurgery Alina Moise M.D. Professor and Assault Amphibious Vehicle Officer, Division of Neurosurgery HECTOR/hiro documented in this encounter Plan of Treatment Not on filedocumented as of this encounter Visit Diagnoses Not on filedocumented in this encounter"
--- OUTSIDE RECORDS SUMMARY | ~2019-11-04 | XMS | Encounter Summary ---
Demographics + + + | Address | [address] | | | [place] [address] | + + + | Home Phone [...] Providers + +------+ + | Care Tobacco Wetter Name | Role | Phone | + [...] + + | 10/06/ | Telephone | [facility] | Farrukh Acuna MD | Other | | 2019 | | NEPHROLOGY [place] | [address] [place] | | | | | [address] [place] | [address] [place], [place] | | | | | [address] [place], [place] | [address] | | | | | [address] | | | | | | [phone] | | | +--------+ + + + [...] [place] | | | | | | [address] | | | | | | (Fax) | | +--------+---------+ + + + documented as of this encounter Visit Diagnoses Not on filedocumented in this encounter"
--- OUTSIDE RECORDS SUMMARY | ~2019-11-04 | XMS | Encounter Summary ---
Demographics + + + | Address | [address] | | | [place] [address] | + + + | Home Phone [...] Providers + +------+ + | Care Field Kiln Burner Name | Role | Phone | + +------+ + | Rahul Silva MD | PCP | | + +------+ + Encounter Details +--------+ + + + + | Date | Type | Department | Care Team | Description | +--------+ + + + + | 03/01/ | Orders Only | [facility] | Conversion | | | 2019 | | NEPHROLOGY [place] | Transaction, | | | | | [address] | Provider Unknown | | | | | [address] [place] | | | | | | [address] | (Fax) | | | | | [phone] | | | +--------+ + + + [...] CENTERRAD[facility] | | | | | | [address] | | | | | | | [...] - 1.030 | EXTERNAL | | | [place] | | | LAB | | + [...]
--- OUTSIDE RECORDS SUMMARY | ~2019-11-04 | XMS | Encounter Summary ---
Demographics + + + | Address | [address] | | | [place] [address] | + + + | Home Phone [...] Providers + +------+ + | Care Principal Statistical Programmer Name | Role | Phone | + +------+ + | Rahul Silva MD | PCP | | + +------+ + Encounter Details +--------+ + + + + | Date | Type | Department | Care Team | Description | +--------+ + + + + | 05/22/ | Orders Only | [facility] | Farrukh Acuna MD | | | 2018 | | NEPHROLOGY [place] | [address] [place] | | | | | [address] [place] | [address] [place], [place] | | | | | [address] [place], [place] | [address] | | | | | [address] | | | | | | [phone] | | | +--------+ + + + [...] [place] | | | | | | [address] | | | | | | | [...] | | | LAB | | | [place] | | | | | + + [...]
--- OUTSIDE RECORDS SUMMARY | ~2019-11-04 | XMS | Encounter Summary ---
Demographics + + + | Address | [address] | | | [place] [address] | + + + | Home Phone [...] +------+ + | Care Associate Professor Of Counseling Name | Role | Phone | + +------+ + | Rahul Silva MD | PCP | | + +------+ + Encounter Details +--------+ + + + + | Date | Type | Department | Care Team | Description | +--------+ + + + + | 07/26/ | Orders Only | [facility] | Farrukh Acuna MD | Chronic kidney | | 2019 | | NEPRHOLOGY [place] | [address] | disease, stage IV | | | | [address] | [address] [place], [place] | (severe) (HCC); | | | | [address] [place], [place] | [address] | Persistent | | | | [address] | | proteinuria; | | | | [phone] | | Secondary | | | | [...] | | | | | | [address] [place], [place] | | | | | | [address] | | | | | | | [...]
--- OUTSIDE RECORDS SUMMARY | ~2019-11-04 | XMS | Encounter Summary ---
Demographics + + + | Address | [address] | | | [place] [address] | + + + | Home Phone [...] Providers + +------+ + | Care Corporate Safety Director Name | Role | Phone | + +------+ + | Rahul Silva MD | PCP | | + +------+ + Encounter Details +--------+ + + + + | Date | Type | Department | Care Team | Description | +--------+ + + + + | 09/17/ | Orders Only | [facility] | Collin Mirza, | | | 2015 | | NEPHROLOGY [place] | [facility] | | | | | [address] [place] | [address] | | | | | [address] [place], [place] | [facility] | | | | | [address] | [address] | | | | | [phone] | [phone] | | | | | | | [...] | | | | [address] [facility] | | | | | | [address] | | | | | | | [...] | | | LAB | | | MALAYSIAN | | | | | + + [...]
--- OUTSIDE RECORDS SUMMARY | ~2019-11-04 | XMS | Encounter Summary ---
Demographics + + + | Address | [address] | | | [place] [address] | + + + | Home Phone [...] Team Providers + +------+ + | Care Adult Remedial Education Instructor Name | Role | Phone [...] + + | 10/19/ | Documentati | [facility] | Simon, | Results (09/22/19) | | 2019 | on | NEPHROLOGY [place]SEM | [facility] | | | | | [address] | Watch Band Assembler | | | | | [address] | | | | | | [place] | | | | | | [address] | | | | | | [phone] | | | +--------+ + + + [...] [place] | | | | | | [address] | | | | | | (Fax) [...]
--- OUTSIDE RECORDS SUMMARY | ~2019-11-04 | XMS | Encounter Summary ---
Demographics + + + | Address | [address] | | | [place] [address] | + + + | Home Phone [...] Team Providers + +------+ + | Care Acid Treater Name | Role | Phone | [...] [address] | [address] [facility] [facility] [address] | | | | | [place], [place] | [address] [place] | | | | | [address] | [address] | | | | | [phone] | | | +--------+ + + + [...] [place] | | | | | | [address] | | | | | | | [...]
--- OUTSIDE RECORDS SUMMARY | ~2019-11-04 | XMS | Encounter Summary ---
Demographics + + + | Address | [address] | | | [place] [address] | + + + | Home Phone [...] Providers + +------+ + | Care Security Dispatcher Name | Role | Phone | + +------+ + PCP | Unavailable | + +------+ + Encounter Details +--------+ + + + + | Date | Type | Department | Care Team | Description | +--------+ + + + + | 05/22/ | [facility] | Nelson Lutz MD | | | 1998 | Encounter | MED CTR GENERIC OP | [address] [place] | | | | | CONV DEPT [address] | [address] [place] | | | | | [address] [place], | [address] | | | | | [place] [address] | | | | | | [phone] | | | +--------+ + + + [...] | | | | | | [address] [place] | | | | | | [address] | | | | | | | | +--------+---------+ + + + documented as of this encounter Visit Diagnoses Not on filedocumented in this encounter"
--- OUTSIDE RECORDS SUMMARY | ~2019-11-04 | XMS | Encounter Summary ---
Demographics + + + | Address | [address] | | | [place] [address] | + + + | Home Phone [...] [place] | | | | | [address] | | + + + + + Care Team Providers + +------+ + | Care Timber Management Assistant Name | Role | Phone | [...] Rd | | | | | | [place] | | | | | | [address] | | | +--------+ + + + [...] of this encounter Discharge Summaries Interface, Business Services Analyst In - 04/01/2007 5:08 AM PDT [address] [address] [facility] MEDICAL SUMMARY OF HOSPITALIZATION Med [...] Clinic NK:freddie A cc: RUBIA KNAPP MD [address] [facility] [address] documented in this encounter Plan of Treatment Not on filedocumented as of this encounter Visit Diagnoses Not on filedocumented in this encounter"
--- OUTSIDE RECORDS SUMMARY | ~2019-11-04 | XMS | Encounter Summary ---
Demographics + + + | Address | [address] | | | [place] [address] | + + + | Home Phone [...] [place] | | | | | [address] | | + + + + + Care Team Providers + +------+ + | Care Spray Operator Name | Role | Phone | [...] | | | | | | [facility], [address] | | | | | | [place], [place] | | | | | | [address] | | | | | | [phone] | | | +--------+ + + + [...] as of this encounter Progress Notes Interface, Claims Auditor In - 01/06/2007 5:03 AM PST CLINIC DATE: 10/31/97 [facility] - PROCEDURE NOTE PROCEDURE: [...] his left thigh stump. Nelson Melara M.D. Compensation Expert, [facility] MANDY/maryjo documented in this encounter Plan of Treatment Not on filedocumented as of this encounter Visit Diagnoses Not on filedocumented in this encounter"
--- OUTSIDE RECORDS SUMMARY | ~2019-11-04 | XMS | Encounter Summary ---
Demographics + + + | Address | [address] | | | [place] [address] | + + + | Home Phone [...] [place] | | | | | [address] | | + + + + + Care Team Providers + +------+ + | Care Supervisor Title Name | Role | Phone | + +------+ + | Rahul Silva MD | PCP | | + +------+ + Encounter Details +--------+ + + + + | Date | Type | Department | Care Team | Description | +--------+ + + + + | 01/14/ | Office | UNKNOWN DEPARTMENT | Other, Faculty | Progress Note | | 2000 | Visit-Trans | [address] [facility] | [phone] | | | | [place] | [address] | | | | | | [place], [place] | | | | | | [address] | | | +--------+ + + + [...] that he see one of our clinical documentation specialist for further evaluation, and he did appear interested in doing that. 2. Referral to Dr. Willis in Orthopedics. Yuriy Huang M.D. slope runner HOSEAL / [id number] / [id number] / [id number] / [id number] C: 01/23/2001 nw documented in this encounter Plan of Treatment Not on filedocumented as of this encounter Visit Diagnoses Not on filedocumented in this encounter"
--- OUTSIDE RECORDS SUMMARY | ~2019-11-04 | XMS | Encounter Summary ---
Demographics + + + | Address | [address] | | | [place] [address] | + + + | Home Phone [...] Providers + +------+ + | Care Manager Material Name | Role | Phone | + +------+ + | Rahul Silva MD | PCP | | + +------+ + Encounter Details +--------+ + + + + | Date | Type | Department | Care Team | Description | +--------+ + + + + | 05/27/ | Orders Only | [facility] | Farrukh Acuna MD | | | 2019 | | NEPHROLOGY [place] | [address] [place] | | | | | [address] [place] | [address] [place], [place] | | | | | [address] [place], [place] | [address] | | | | | [address] | | | | | | [phone] | | | +--------+ + + + [...] [place] | | | | | | [address] | | | | | | | [...]
--- OUTSIDE RECORDS SUMMARY | ~2019-11-04 | XMS | Encounter Summary ---
Demographics + + + | Address | [address] | | | [place] [address] | + + + | Home Phone [...] Team Providers + +------+ + | Care Quarantine Inspector Name | Role | Phone | [...] Young | | | | | [place], [place] | [place], [place] | | | | | [address] | [address] | | | | | [phone] | [phone] | | | | | | | [...] | Visit | | [address] [facility] | | | | | | [facility] | | | | | | [address] | | | | | | | [...]
--- OUTSIDE RECORDS SUMMARY | ~2019-11-04 | XMS | Encounter Summary ---
Demographics + + + | Address | [address] | | | [place] [address] | + + + | Home Phone [...] Team Providers + +------+ + | Care Formula Technician Name | Role | Phone | [...] | | | [address] [place], [place] | [address] | | | | | [address] | | | | | | [phone] | | | +--------+ + + + [...] [place] | | | | | | [address] | | | | | | | [...]
--- OUTSIDE RECORDS SUMMARY | ~2019-11-04 | XMS | Clinical Summary ---
Demographics + + + | Address | [address] | | | [place] [address] | + + + | Home Phone [...] Author + + + | Author | [facility] | + + + | Organization | [facility] | + + + | Address | Unknown | + + + | Phone | Unavailable | + + + Support + + + + + | Name | Relationship | Address | Phone | + + + + + | Darci Andujar | [place]ERIE | [place] | | | | | [address] | | + + + + + Care Team Providers + +------+ + | Care Painter Sign Maintenance Name | Role | Phone | + +------+ + | Rahul Silva MD | PCP | | + +------+ + Source Comments [place] is fully live on both [facility] and [facility] InPatient.[facility] Allergies No Known Allergies Medications + + [...]
--- OUTSIDE RECORDS SUMMARY | ~2019-11-04 | XMS | Encounter Summary ---
Demographics + + + | Address | [address] | | | [place] [address] | + + + | Home Phone [...] Providers + +------+ + | Care Sports Teacher Name | Role | Phone | + +------+ + | Rahul Silva MD | PCP | | + +------+ + Encounter Details +--------+ + + + + | Date | Type | Department | Care Team | Description | +--------+ + + + + | 06/23/ | Orders Only | [facility] | Farrukh Acuna MD | | | 2018 | | NEPHROLOGY [place] | [address] [place] | | | | | [address] [place] | [address] [place], [place] | | | | | [address] [place], [place] | [address] | | | | | [address] | | | | | | [phone] | | | +--------+ + + + [...] [place] | | | | | | [address] | | | | | | | [...]
--- OUTSIDE RECORDS SUMMARY | ~2019-11-04 | XMS | Encounter Summary ---
Demographics + + + | Address | [address] | | | [place] [address] | + + + | Home Phone [...] Team Providers + +------+ + | Care Database Report Writer Name | Role | Phone | + +------+ + | Rahul Silva MD | PCP | | + +------+ + Encounter Details +--------+ + + + + | Date | Type | Department | Care Team | Description | +--------+ + + + + | 05/27/ | Orders Only | [facility] | Farrukh Acuna MD | | | 2019 | | NEPHROLOGY [place] | [address] [place] | | | | | [address] [place] | [address] [place], [place] | | | | | [address] [place], [place] | [address] | | | | | [address] | | | | | | [phone] | | | +--------+ + + + [...] [place] | | | | | | [address] | | | | | | | [...]
--- OUTSIDE RECORDS SUMMARY | ~2019-11-04 | XMS | Encounter Summary ---
Demographics + + + | Address | [address] | | | [place] [address] | + + + | Home Phone [...] Providers + +------+ + | Care Cattle Killer Name | Role | Phone | + +------+ + | Rahul Silva MD | PCP | | + +------+ + Encounter Details +--------+ + + + + | Date | Type | Department | Care Team | Description | +--------+ + + + + | 10/03/ | Orders Only | [facility] | Collin Mirza, | | | 2015 | | NEPHROLOGY [place] | LEAF FAT SCRAPER [address] | | | | | [address] [place] | [address] | | | | | [address] [place], [place] | [facility] | | | | | [address] | [address] | | | | | [phone] | [phone] | | | | | | | [...] [place] | | | | | | [address] | | | | | | | [...]
--- OUTSIDE RECORDS SUMMARY | ~2019-11-04 | XMS | Encounter Summary ---
Demographics + + + | Address | [address] | | | [place] [address] | + + + | Home Phone [...] Team Providers + +------+ + | Care Shop Helper Name | Role | Phone | [...] | [address] | [address] [facility] [place] | | | | | [place], [place] | [address] [place] | | | | | [address] | [address] | | | | | [phone] | | | +--------+ + + + [...] 2020 | Visit | | [address] [facility] | | | | | | [address] [place] | | | | | | [address] | | | | | | | [...]
--- OUTSIDE RECORDS SUMMARY | ~2019-11-04 | XMS | Encounter Summary ---
Demographics + + + | Address | [address] | | | [place] [address] | + + + | Home Phone [...] [place] | | | | | [address] | | + + + + + Care Team Providers + +------+ + | Care Hotel Clerk Name | Role | Phone | [...] Pavilion | | | | | | [place], [place] | | | | | | [address] | | | | | | [phone] | | | +--------+ + + + [...]
--- OUTSIDE RECORDS SUMMARY | ~2019-11-04 | XMS | Encounter Summary ---
Demographics + + + | Address | [address] | | | [place] [address] | + + + | Home Phone [...] [place] | | | | | [address] | | + + + + + [...] | 1992 | Only | Lab at [facility] [address] | [address] | | | | | [address] | [place], | | | | | Mailcode: [id number] | [place] [address] | | | | | Emelyn Montalvo | [phone] | | | | | [place], [place] | | | | | | [address] | | | | | | [phone] | | | +--------+ + + + [...] | | | | | | PORFIRIO NNUES F | | | | | | [...] | | | | | | a Humboldt-Lupe catheter | | | | | | [...] | | | | placement of a Humboldt-Lupe | | | | | | catheter. CHEST, | | | | | | SINGLE AP PORTABLE: | | | | | | 03-31-93 AT 1000 HOURS | | | | | | FINDINGS: Since the | | | | | | prior study, the | | | | | | Humboldt-Lupe catheter has | | | | | [...] IMPRESSION: | | | | | | Humboldt-Lupe catheter | | | | | | [...] The | | | | | | Humboldt-Lupe catheter | | | | | | [...] and | | | | | | Humboldt-Lupe catheter | | | | | | [...] endotracheal | | | | | | tube,Humboldt-Lupe catheter | | | | | | [...] | | + +---------+ + + | [facility] DEPARTMENT OF | | | | [...] | + + + + + | [facility] | [address] | [place] [address] | | | PATHOLOGY | [address] | | | + + + + + documented in this encounter Visit Diagnoses Not on filedocumented in this encounter"
--- OUTSIDE RECORDS SUMMARY | 2019-11-04 13:14 | XMS ---
PreManage Notification: PORFIRIO ZAVALA Security Clerical Secretary Events No recent Security Events currently on file CRITERIA MET - [facility] - Has Care Guidelines - PDMP - [facility] - 2 Visits in 30 Days [facility]Rodney Van PHONE: [phone] Herminia Rivera Upholstery Trimmer/Stretching Press Operator 08/31/2018-Current PHONE: [phone] Herminia Rivera Primary Care 08/31/2018-Current PHONE: [phone] Domenic Gutiérrez Case or Fibrous Wallboard Inspector Current PHONE: [phone] HARDIK Van Primary Care 08/31/2015-Rodney COYNE PHONE: Unknown Agapito has no Care Guidelines for this patient. Care History Medical/Surgical 05/28/2018 [facility] - Patient currently sees loom mechanic Dr Acuna and patient has last seen [...] ED please contact Community Health WorkerLizzy at [phone]. These are guidelines and the provider should exercise clinical judgment when providing care. 07/25/2017 [facility] HISTORY: COPD, DMII, HTN, CVA X3, KIDNEY FAIL STAGE 3 WITH SHORT TERM DIALYSIS, CPAP USE SURGERY HISTORY: GILBERT ESPINAL, PANCRETIC TUMOR REMOVAL Gloria VISIT COUNT (12 MO.) [address] [facility] TOTAL 5 NOTE: Visits indicate total known visits. ED/UCC VISIT TRACKING (12 MO.) 11/04/2019 13:11 [facility] TYPE: Emergency COMPLAINT: - MEMORY PROBLEM 10/10/2019 20:25 [facility] TYPE: Emergency COMPLAINT: - CHEST PAIN DIAGNOSES: - Allergy status to oth drug/meds/biol subst status - 1 Type 2 diabetes mellitus w diabetic chronic kidney disease - Heart failure, unspecified - Unspecified abdominal pain - Chest pain, unspecified - Chronic obstructive pulmonary disease, unspecified - Personal history of nicotine dependence - Chest pain, unspecified - terminal make up operator (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 of aspirin - Prsnl hx of TIA (TIA), and cereb infrc w/o resid deficits - assisted (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 of insulin - Hypomagnesemia - 1 Hyp hrt \T\ chr kdny dis w hrt fail and stg 12-04/unsp chr kdny - 1 Chronic kidney disease, stage 4 (severe) - Other medical terminologist (current) drug therapy 09/27/2019 12:22 [facility] TYPE: Emergency COMPLAINT: - SOB 03/03/2019 06:55 [facility] TYPE: Emergency COMPLAINT: - SOB DIAGNOSES: - assisted (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 of insulin - Nicotine dependence, unspecified, uncomplicated - terminal make up operator (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 of aspirin - 1 Type 2 diabetes mellitus w diabetic chronic kidney disease - Prsnl hx of TIA (TIA), and cereb infrc w/o resid deficits - 1 Chronic kidney disease, stage 4 (severe) - Other medical terminologist (current) drug therapy - Chronic obstructive pulmonary disease w (acute) exacerbation - Shortness of breath - 1 Hypertensive chronic kidney disease w stg 12-04/unsp chr kdny 02/15/2019 22:21 [facility] TYPE: Emergency COMPLAINT: - CONSTIPATED INPATIENT VISIT TRACKING (12 MO.) 09/27/2019 16:43 [facility] TYPE: Medical Surgical COMPLAINT: - PNA DIAGNOSES: - Adverse effect of other opioids, initial encounter - assisted (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 of antithrombotics/antiplatelets - Anemia in chronic kidney disease - Acquired absence of left leg above knee - 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 classd elswhr - Nicotine dependence, unspecified, uncomplicated - Panlobular emphysema - Panlobular emphysema - 1 Type 2 diabetes mellitus w diabetic chronic kidney disease - assisted (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 of insulin - Allergy status to oth drug/meds/biol subst status - Opioid dependence, uncomplicated - Other correction (current) drug therapy - Nicotine dependence, unspecified, uncomplicated - Pneumonia due to Streptococcus pneumoniae - Chronic pain syndrome - Dependence on wheelchair - terminal make up operator (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 of insulin - Acquired absence [...] Hyperlipidemia, unspecified - Drug induced constipation - assisted (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 of aspirin - Anemia in chronic kidney disease - 1 Hypertensive chronic kidney disease w stg 1-4/unsp chr kdny - assisted (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 of aspirin - Adverse effect of other opioids, initial encounter - terminal make up operator (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 of antithrombotics/antiplatelets - Opioid dependence, uncomplicated - Other correction (current) drug therapy 02/15/2019 22:22 [facility] TYPE: Observation COMPLAINT: - STERCORAL COLITIS DIAGNOSES: - terminal make up operator (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 of antithrombotics/antiplatelets - 1 Hypertensive [...] and cereb infrc w/o resid deficits - assisted (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 of insulin - Accidental pnctr \T\ lac of a dgstv sys org dur dgstv sys proc - Chronic obstructive pulmonary disease, unspecified - Noninfective gastroenteritis and colitis, unspecified - Gastro-esophageal reflux disease without esophagitis - Other correction (current) drug therapy - Other chronic pain - Acquired absence of left leg above knee [id number]
== END 2019-11-04 16:03 | disposition home or self-care (01) ==
LOC: ED 13:10
DX: F01.50 Vascular dementia, unspecified severity, without behavioral disturbance, psychotic disturbance, mood disturbance, and anxiety (principal); N17.9 Acute kidney failure, unspecified; I13.0 Hypertensive heart and chronic kidney disease with heart failure and stage 1 through stage 4 chronic kidney disease, or unspecified chronic kidney disease; E11.22 Type 2 diabetes mellitus with diabetic chronic kidney disease; N18.4 Chronic kidney disease, stage 4 (severe); I50.9 Heart failure, unspecified; D63.1 Anemia in chronic kidney disease; J44.9 Chronic obstructive pulmonary disease, unspecified; Z86.73 Personal history of transient ischemic attack (TIA), and cerebral infarction without residual deficits; Z99.2 Dependence on renal dialysis; Z99.89 Dependence on other enabling machines and devices; Z87.891 Personal history of nicotine dependence; Z88.8 Allergy status to other drugs, medicaments and biological substances; Z79.899 Other long term (current) drug therapy; Z79.01 Long term (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 of anticoagulants; Z79.4 Long term (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 of insulin; Z79.82 Long term (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 of aspirin
CPT/HCPCS: 80048; 81001; 85025; 99284

== ENCOUNTER 2019-11-18 21:05 | Emergency (ER) | payer MEDICARE, OTHER ==
[~2019-11-18] VITALS: Ht 172.7 cm; Wt 86.2 kg
--- OUTSIDE RECORDS SUMMARY | ~2019-11-18 | XMS | Encounter Summary ---
Demographics + + + | Address | [address] | | | [place] [address] | + + + | Home Phone | | + + + | Preferred Language | Unknown | + + + | Marital Status | | + + + | Zoroastrian Affiliation | 1077 | + + + | Race | Unknown | + + + | Ethnic Group | Unknown | + + + Author + + + | Author | [facility] | | | and [place] | + + + | Organization | [facility] | | [...] Team Providers + +------+ + | Care Director Of Surgery Name | Role | Phone | + +------+ + | Rahul Silva MD | PCP | | + +------+ + Reason for Visit + + + | Reason | Comments | + + + | Post-op Question | ear | + + + Encounter Details +--------+ + + + + | Date | Type | Department | Care Team | Description | +--------+ + + + + | 08/07/ | Telephone | [facility] | Steven Tobar MD | Post-op Question | | 2016 | | OTOLARYNGOLOGY [address] | [address] [place] | (ear) | | | | [address] [place] [address] | [address] [place], | | | | | [place], [place] | [place] [address] | | | | | [address] | [phone] | | | | | [phone] | | | +--------+ + + + [...] 2020 | Visit | | [address] [facility] | | | | | | [address] [place] | | | | | | [address] | | | | | | | | +--------+---------+ + + + documented as of this encounter Visit Diagnoses Not on filedocumented in this encounter"
--- OUTSIDE RECORDS SUMMARY | ~2019-11-18 | XMS | Encounter Summary ---
Demographics + + + | Address | [address] | | | [place] [address] | + + + | Home Phone | | + + + | Preferred Language | Unknown | + + + | Marital Status | | + + + | Episcopalian Affiliation | 1077 | + + + | Race | Unknown | + + + | Ethnic Group | Unknown | + + + Author + + + | Author | [facility] | | | and [place] | + + + | Organization | [facility] | | | [...] Team Providers + +------+ + | Care Distribution Tech Name | Role | Phone | + +------+ + | Rahul Silva MD | PCP | | + +------+ + Encounter Details +--------+ + + + + | Date | Type | Department | Care Team | Description | +--------+ + + + + | 07/26/ | Orders Only | [facility] | Farrukh Acuna MD | Chronic kidney | | 2019 | | NEPRHOLOGY [place] | [address] | disease, stage IV | | | | [address] | [address] [place], [place] | (severe) (HCC); | | | | [address] [place], [place] | [address] | Persistent | | | | [address] | | proteinuria; | | | | [phone] | | Secondary | | | | | | hyperparathyroidism | | | | | | of renal origin | | | | | | (HCC) [...] 2020 | Visit | | [address] [place] | | | | | | [address] [place], [place] | | | | | | [address] | | | | | | | | +--------+---------+ + + + + +------+--------+ + + | Name | Type | Priori | Associated Diagnoses | Order Schedule | | | | ty | | | + +------+--------+ + + | Iron and Iron | Lab | Routin | Chronic kidney | Expected: | | Binding Capacity | | e | disease, stage IV | 05/19/2019, Expires: | | | | | (severe) (HCC) | 03/08/2020 | | | | | Persistent | | | | | | proteinuria | | | | | | Secondary | | | | | | hyperparathyroidism | | | | | | of renal origin | | | | | | (HCC) | | + +------+--------+ + + documented as of this encounter Visit Diagnoses + + | Diagnosis | + + | Chronic kidney disease, stage IV (severe) (HCC) Chronic kidney disease, Stage IV | | (severe) | + + | Persistent proteinuria Proteinuria | + + | Secondary hyperparathyroidism of renal origin (HCC) Secondary hyperparathyroidism (of | | renal origin) | + + documented in this encounter"
--- OUTSIDE RECORDS SUMMARY | ~2019-11-18 | XMS | Encounter Summary ---
Demographics + + + | Address | [address] | | | [place] [address] | + + + | Home Phone | | + + + | Preferred Language | Unknown | + + + | Marital Status | | + + + | Yarsani Affiliation | 1077 | + + + | Race | Unknown | + + + | Ethnic Group | Unknown | + + + Author + + + | Author | [facility] | | | and [place] | + + + | Organization | [facility] | | | [...] Team Providers + +------+ + | Care Audio Production Instructor Name | Role | Phone | [...] [address] | | | | | [place], [place] | [place], [place] | | | | | [address] | [address] | | | | | [phone] | [phone] | | | | | | | [...] 2020 | Visit | | [address] [facility] | | | | | | [facility] | | | | | | [address] | | | | | | | | +--------+---------+ + + + documented as of this encounter Procedures + +--------+ + + + | Procedure Name | Priori | Date/Time | Associated Diagnosis | Comments | | | ty | | | | + +--------+ + + + | HEPATITIS PANEL, | Routin | 11/08/2016 | | Results for this | | CHRONIC | e | 4:37 AM | | procedure are in the | | | | PST | | results section. | + +--------+ + + + documented in this encounter Results Hepatitis Panel, Chronic (11/08/2016 4:37 AM PST) + + + + + + | Component | Value | Ref Range | Performed | Pathologist | | | | | At | Signature | + + + + + + | Hep A Total | NON REACTIVE | | EXTERNAL | | | Ab Interp | | | LAB | | + + + + + + | HEP B | NON REACTIVE | | EXTERNAL | | | SURFACE | | | LAB | | | ANTIBODY | | | | | + + + + + + | Hepatitis B | NON REACTIVE | | EXTERNAL | | | Core Ab | | | LAB | | | Total | | | | | + + + + + + | HEP B | <0.35Comment: <1.00 | | EXTERNAL | | | SURFACE | Non Immune1.00 | | LAB | | | ANTIBODY | OR MORE Indicates | | | | | | vaccine response or | | | | | | response to HBV | | | | | | infection. An Index | | | | | | Value (IV) of 1.00 is | | | | | | equivalent to 10 mIU/mL. | | | | | | Samples with an IV of | | | | | | 1.00 or greater are | | | | | | considered reactive | | | | | | (protected) in | | | | | | accordance with CDC | | | | | | Guidelines. | | | | + + + + + + | HCV Ab | NON REACTIVE | | EXTERNAL | | | | | | LAB | | + + + + + + | Hepatitis | No serologic evidence of | | EXTERNAL | | | Interpretat | HAV, HBV, or HCV | | LAB | | | ion | infection. | | | | + + + [...]
--- OUTSIDE RECORDS SUMMARY | ~2019-11-18 | XMS | Encounter Summary ---
Demographics + + + | Address | [address] | | | [place] [address] | + + + | Home Phone | | + + + | Preferred Language | Unknown | + + + | Marital Status | | + + + | Episcopal Affiliation | 1077 | + + + | Race | Unknown | + + + | Ethnic Group | Unknown | + + + Author + + + | Author | [facility] | | | and [place] | + + + | Organization | [facility] | | [...] Team Providers + +------+ + | Care Test Desk Supervisor Name | Role | Phone | + +------+ + | Rahul Silva MD | PCP | | + +------+ + Encounter Details +--------+ + + + + | Date | Type | Department | Care Team | Description | +--------+ + + + + | 08/19/ | Orders Only | [facility] | Farrukh Acuna MD | | | 2018 | | NEPHROLOGY [place] | [address] [place] | | | | | [address] [place] | [address] [place], [place] | | | | | [address] [place], [place] | [address] | | | | | [address] | | | | | | [phone] | | | +--------+ + + + [...] 2020 | Visit | | [address] [facility] | | | | | | [address] [place] | | | | | | [address] | | | | | | | [...]
--- OUTSIDE RECORDS SUMMARY | ~2019-11-18 | XMS | Encounter Summary ---
Demographics + + + | Address | [address] | | | [place] [address] | + + + | Home Phone | | + + + | Preferred Language | Unknown | + + + | Marital Status | Single | + + + | Shinto Affiliation | PRO | + + + | Race | White | + + + | Ethnic Group | Not or | + + + Author + + + | Author | [facility] | + + + | Organization | [facility] | + + + | Address | Unknown | + + + | Phone | Unavailable | + + + Support + + + + + | Name | Relationship | Address | Phone | + + + + + | Darci Andujar | [place] | [place] | | | | | [address] | | + + + + + Care Team Providers + +------+ + | Care Career Development Engineer Name | Role | Phone | + +------+ + | Rahul Silva MD | PCP | | + +------+ + Encounter Details +--------+ + + + + | Date | Type | Department | Care Team | Description | +--------+ + + + + | 05/07/ | Documentati | AntiCoagulation at | Note, | | | 1992 | on | [facility] [address] | Anticoagulation | | | | [address] | Clinic | | | | | [facility] | | | | | | [address] | | | | | | [facility] | | | | | | [place], [place] | | | | | | [address] | | | | | | [phone] | | | +--------+ + + + [...] as of this encounter Plan of Treatment Not on filedocumented as of this encounter Visit Diagnoses Not on filedocumented in this encounter"
--- OUTSIDE RECORDS SUMMARY | ~2019-11-18 | XMS | Encounter Summary ---
Demographics + + + | Address | [address] | | | [place] [address] | + + + | Home Phone | | + + + | Preferred Language | Unknown | + + + | Marital Status | | + + + | Yarsanism Affiliation | 1077 | + + + | Race | Unknown | + + + | Ethnic Group | Unknown | + + + Author + + + | Author | [facility] | | | and [place] | + + + | Organization | [facility] | | | [...] Team Providers + +------+ + | Care Epic Stork Specialists Name | Role | Phone | + +------+ + | Rahul Silva MD | PCP | | + +------+ + Reason for Visit +---------+ + | Reason | Comments | +---------+ + | Results | 11/10/19 | +---------+ + Encounter Details +--------+ + + + + | Date | Type | Department | Care Team | Description | +--------+ + + + + | 11/12/ | Documentati | [facility] | Simon, | Results (11/10/19) | | 2019 | on | NEPHROLOGY CONNIE | [facility] | | | | | [address] | [address] | | | | | [address] [place], [place] | | | | | | [address] | | | | | | [phone] | | | +--------+ + + + [...] 2020 | Visit | | [address] [facility] | | | | | | [address] [place] [address] | | | | | | [address] | | | | | | | | +--------+---------+ + + + documented as of this encounter Procedures + +--------+ + + + | Procedure Name | Priori | Date/Time | Associated Diagnosis | Comments | | | ty | | | | + +--------+ + + + | BASIC METABOLIC | Routin | 11/10/2019 | | Results for this | | PANEL | e | | | procedure are in the | | | | | | results section. | + +--------+ + + + documented in this encounter Results Basic Metabolic Panel (11/10/2019) + + + + + + | [...] + + + + | Glucose | 217 (A) | 70 - 100 mg/dL | | | + + + + + + | BUN | 57 (A) | 6 - 23 mg/dL | | | + + + + + + | Creatinine | 4.98 (A) | 0.70 - 1.18 | | | | | | mg/dL | | | + + + + + + | Estimated | 11.0 (A) | 60.0 - 140.0 | | | | GFR | | mL/min/1.73m2 | | | + + + + + + | BUN/Creatin | 11.4 | 6.0 - 28.6 | | | | ine Ratio | | | | | + + + + + + + + | Specimen | + + | Blood | + + documented in this encounter Visit Diagnoses Not on filedocumented in this encounter"
--- OUTSIDE RECORDS SUMMARY | ~2019-11-18 | XMS | Encounter Summary ---
Demographics + + + | Address | [address] | | | [place] [address] | + + + | Home Phone | | + + + | Preferred Language | Unknown | + + + | Marital Status | | + + + | Hindu Affiliation | 1077 | + + + | Race | Unknown | + + + | Ethnic Group | Unknown | + + + Author + + + | Author | [facility] | | | and [place] | + + + | Organization | [facility] | | | and [...] Team Providers + +------+ + | Care Employment Appeals Examiner Name | Role | Phone | + +------+ + | Rahul Silva MD | PCP | | + +------+ + Encounter Details +--------+ + + + + | Date | Type | Department | Care Team | Description | +--------+ + + + + | 06/15/ | Orders Only | [facility] | Conversion | | | 2019 | | NEPHROLOGY CONNIE | Transaction, | | | | | [address] | Provider Unknown | | | | | [address] [place] [address] | | | | | | [address] | (Fax) | | | | | [phone] | | | +--------+ + + + [...] [address] [facility] [address] | | | | | | [address] [place] [address] | | | | | | [address] | | | | | | | [...]
--- OUTSIDE RECORDS SUMMARY | ~2019-11-18 | XMS | Encounter Summary ---
Demographics + + + | Address | [address] | | | [place] [address] | + + + | Home Phone | | + + + | Preferred Language | Unknown | + + + | Marital Status | | + + + | Restorationist Affiliation | 1077 | + + + | Race | Unknown | + + + | Ethnic Group | Unknown | + + + Author + + + | Author | [facility] | | | and [place] | + + + | Organization | [facility] | | [...] Team Providers + +------+ + | Care Community Health Planning Director Name | Role | Phone | [...] [address] | | | | | [place], [place] | [place], [place] | | | | | [address] | [address] | | | | | [phone] | [phone] | | | | | | | [...] | Visit | | [address] [facility] | | | | | | [facility] | | | | | | [address] | | | | | | | | +--------+---------+ + + + documented as of this encounter Procedures + +--------+ + + + | Procedure Name | Priori | Date/Time | Associated Diagnosis | Comments | | | ty | | | | + +--------+ + + + | EXTERNAL LAB: CBC | Routin | 11/10/2016 | | Results for this | | | e | 4:27 AM | | procedure are in the | | | | PST | | results section. | + +--------+ + + + documented in this encounter Results External Lab: CBC (11/10/2016 4:27 AM PST) + + + + + + | Component | Value | Ref Range | Performed | Pathologist | | | | | At | Signature | + + + + + + | WBC | 9.39 | 3.80 - 11.00 | EXTERNAL | | | | | 10*3/uL | LAB | | + + + + + + | RED CELL | 3.11 (L) | 4.20 - 5.70 | EXTERNAL | | | COUNT | | 10*6/uL | LAB | | + + + + + + | Hgb | 9.6 (L) | 13.2 - 17.0 | EXTERNAL | | | | | g/dL | LAB | | + + + + + + | Hematocrit, | 28.1 (L) | 39.0 - 50.0 % | EXTERNAL | | | POC | | | LAB | | + + + + + + | MCV | 90.3 | 80.0 - 100.0 fL | EXTERNAL | | | | | | LAB | | + + + + + + | MCH | 31.0 | 27.0 - 34.0 pg | EXTERNAL | | | | | | LAB | | + + + + + + | MCHC | 34.3 | 32.0 - 35.5 | EXTERNAL | | | | | g/dL | LAB | | + + + + + + | RDW-CV | 47.7 | 37 - 53 fL | EXTERNAL | | | | | | LAB | | + + + + + + | Platelet | 193 | 150 - 400 | EXTERNAL | | | Count | | 10*3/uL | LAB | | | Plasma | | | | | + + + + + + | MPV | 9.2 | fL | EXTERNAL | | | | | | LAB | | + + + + + + | Differentia | AUTOMATED | | EXTERNAL | | | l Type | | | LAB | | + + + + + + | % Segmented | 79.30 | % | EXTERNAL | | | | | | LAB | | | Neutrophils | | | | | + + + + + + | % | 6.53 | % | EXTERNAL | | | Lymphocytes | | | LAB | | + + + + + + | % Monocytes | 13.27 | % | EXTERNAL | | | | | | LAB | | + + + + + + | % | 0.49 | % | EXTERNAL | | | Eosinophils | | | LAB | | + + + + + + | % Basophils | 0.41 | % | EXTERNAL | | | | | | LAB | | + + + + + + | Absolute | 7.44 (H) | 1.90 - 7.40 | EXTERNAL | | | Segmented | | 10*3/uL | LAB | | | Neutrophils | | | | | + + + + + + | Absolute | 0.61 (L) | 1.00 - 3.90 | EXTERNAL | | | Lymphocytes | | 10*3/uL | LAB | | + + + + + + | Absolute | 1.25 (H) | 0.00 - 0.80 | EXTERNAL | | | Monocytes | | 10*3/uL | LAB | | + + + + + + | Absolute | 0.05 | 0.00 - 0.50 | EXTERNAL | | | Eosinophils | | 10*3/uL | LAB | | + + + + + + | Absolute | 0.04 | 0.00 - 0.10 | EXTERNAL | [...]
--- OUTSIDE RECORDS SUMMARY | ~2019-11-18 | XMS | Encounter Summary ---
Demographics + + + | Address | [address] | | | [place] [address] | + + + | Home Phone | | + + + | Preferred Language | Unknown | + + + | Marital Status | | + + + | Hindu Affiliation | 1077 | + + + | Race | Unknown | + + + | Ethnic Group | Unknown | + + + Author + + + | Author | [facility] | | | and [place] | + + + | Organization | [facility] | | [...] Team Providers + +------+ + | Care Material Control Associate Name | Role | Phone | + [...] + + | 08/07/ | Telephone | [facility] | Steven Tobar MD | Post-op Question | | 2016 | | OTOLARYNGOLOGY [address] | [address] [place] | (ear) | | | | [address] | [address] [place], | | | | | [place], [place] | [place] [address] | | | | | [address] | [phone] | | | | | [phone] | | | +--------+ + + + [...] 2020 | Visit | | [address] [facility] | | | | | | [address] [address] | | | | | | [address] | | | | | | | | +--------+---------+ + + + documented as of this encounter Visit Diagnoses Not on filedocumented in this encounter"
--- OUTSIDE RECORDS SUMMARY | ~2019-11-18 | XMS | Encounter Summary ---
Demographics + + + | Address | [address] | | | [place] [address] | + + + | Home Phone [...] Team Providers + +------+ + | Care Animal Control Specialist Name | Role | Phone | + +------+ + | Rahul Silva MD | PCP | | + +------+ + Encounter Details +--------+ + + + + | Date | Type | Department | Care Team | Description | +--------+ + + + + | 02/24/ | Orders Only | [facility] | Conversion | | | 2016 | | NEPHROLOGY CONNIE | Transaction, | | | | | [address] | Provider Unknown | | | | | [address] | | | | | | [address] | (Fax) | | | | | [phone] | | | +--------+ + + + [...] 2020 | Visit | | [facility] [address] [facility] | | | | | | [address] [facility] | | | | | | [address] | | | | | | | [...] - 1.030 | EXTERNAL | | | [place] | | | LAB | | + [...] + + + | RED CELL | 3.97 (A) | 4.3 - 5.7 10 | EXTERNAL | | | COUNT | | | LAB | | + + + + + + | Hgb | 11.0 (A) | 13.5 - 18.0 [...]
--- OUTSIDE RECORDS SUMMARY | ~2019-11-18 | XMS | Encounter Summary ---
Demographics + + + | Address | [address] | | | [place] [address] | + + + | Home Phone | | + + + | Preferred Language | Unknown | + + + | Marital Status | | + + + | Presybeterian Affiliation | 1077 | + + + [...] Providers + +------+ + | Care Automotive Design Layout Drafter Name | Role | Phone | + +------+ + PCP | Unavailable | + +------+ + Encounter Details +--------+ + + + + | Date | Type | Department | Care Team | Description | +--------+ + + + + | 12/31/ | [facility] | [facility] | | | | 2000 | Encounter | MED CTR XRAY [address] | | | | | | [address] | | | | | | [place] [address] | | | | | | [phone] | | | +--------+ + + + [...] [place] | | | | | | [address] | | | | | | | | +--------+---------+ + + + documented as of this encounter Visit Diagnoses Not on filedocumented in this encounter"
--- OUTSIDE RECORDS SUMMARY | ~2019-11-18 | XMS | Encounter Summary ---
Demographics + + + | Address | [address] | | | [place] [address] | + + + | Home Phone [...] + + + + + | Darci Andjuar | [address] | [place] | | | | | [address] | | + + + + + Care Team Providers + +------+ + | Care Form Coverer Name | Role | Phone | + +------+ + PCP | Unavailable | + +------+ + Encounter Details +--------+ + + + + | Date | Type | Department | Care Team | Description | +--------+ + + + + | 03/31/ | Results | Pulmonary Function | Jarod Gupta MD | | | 1992 | Only | Lab at [facility] [address] | [address] | | | | | [address] | [place], | | | | | Mailcode: [id number] | [place] [address] | | | | | [address] | [phone] | | | | | [place], [place] | | | | | | [address] | | | | | | [phone] | | | +--------+ + + + [...] | | | | | | a Sidman-Lupe catheter | | | | | | [...] | | | | placement of a Sidman-Lupe | | | | | | catheter. CHEST, | | | | | | SINGLE AP PORTABLE: | | | | | | 03-31-93 AT 1000 HOURS | | | | | | FINDINGS: Since the | | | | | | prior study, the | | | | | | Sidman-Lupe catheter has | | | | | [...] IMPRESSION: | | | | | | Sidman-Lupe catheter | | | | | | [...] The | | | | | | Sidman-Lupe catheter | | | | | | [...] and | | | | | | Sidman-Lupe catheter | | | | | | [...] endotracheal | | | | | | tube,Sidman-Lupe catheter | | | | | | [...] | | + +---------+ + + | [facility] DEPARTMENT OF | | | | [...] | + + + + + | [facility] | [address] | [place] [address] | | | PATHOLOGY | [address] | | | + + + + + documented in this encounter Visit Diagnoses Not on filedocumented in this encounter"
--- OUTSIDE RECORDS SUMMARY | ~2019-11-18 | XMS | Encounter Summary ---
Demographics + + + | Address | [address] | | | [place] [address] | + + + | Home Phone | | + + + | Preferred Language | Unknown | + + + | Marital Status | | + + + | Confucianism Affiliation | 1077 | + + + | Race | Unknown | + + + | Ethnic Group | Unknown | + + + Author + + + | Author | [facility] | | | and [place] | + + + | Organization | [facility] | | [...] Team Providers + +------+ + | Care Broach Grinder Name | Role | Phone | + [...] | Transaction, | | | | | [place], [place] | Provider Unknown | | | | | [address] | | | | | | [phone] | | | +--------+ + + + [...] 2020 | Visit | | [address] [facility] | | | | | | [address] [address] | | | | | | [address] | | | | | | | [...] Provider: GER MD, Cary LOVE, , , , CELSA, | [...]
--- OUTSIDE RECORDS SUMMARY | ~2019-11-18 | XMS | Encounter Summary ---
Demographics + + + | Address | [address] | | | [place] [address] | + + + | Home Phone [...] Team Providers + +------+ + | Care Spouting Installer Name | Role | Phone | + +------+ + | Rahul Silva MD | PCP | | + +------+ + Encounter Details +--------+ + + + + | Date | Type | Department | Care Team | Description | +--------+ + + + + | 10/05/ | Orders Only | [facility] | Farrukh Acuna MD | Essential | | 2019 | | NEPHROLOGY [place] | [address] [place] | hypertension | | | | [address] | [address] [facility] [place] | (Primary Dx); Iron | | | | [address] | [address] | deficiency; | | | | [place], [place] | | Secondary | | | | [address] | | hyperparathyroidism | | | | [phone] | | (HCC); CKD (chronic | | | | | | kidney disease) | | | | | | stage 5, GFR less | | | | | | than 15 ml/min ([facility]) | +--------+ + + + [...] | | | | | | [address] [facility] | | | | | | [address] | | | | | | | [...] | | | | ml/min ([facility]) | | + +------+--------+ + [...] | | | | ml/min ([facility]) | | + +------+--------+ + + | Parathyroid Hormone, | Lab | Routin | Essential | Expected: | | Intact | | e | hypertension Iron | 12/05/2019, Expires: | | | | | deficiency | 10/05/2020 | | | | | Secondary | | | | | | hyperparathyroidism | | | | | | (HCC) CKD (chronic | | | | | | kidney disease) | | | | | | stage 5, GFR less | | | | | | than 15 ml/min ([facility]) | | + +------+--------+ + [...]
--- OUTSIDE RECORDS SUMMARY | ~2019-11-18 | XMS | Encounter Summary ---
Demographics + + + | Address | [address] | | | [place] [address] | + + + | Home Phone [...] Providers + +------+ + | Care Chemical Plant Manager Name | Role | Phone | + +------+ + | Rahul Silva MD | PCP | | + +------+ + Encounter Details +--------+ + + + + | Date | Type | Department | Care Team | Description | +--------+ + + + + | 08/13/ | Orders Only | [facility] | Conversion | | | 2016 | | NEPHROLOGY CONNIE | Transaction, | | | | | [address] | Provider Unknown | | | | | [address] | | | | | | [address] | (Fax) | | | | | [phone] | | | +--------+ + + + [...] [place] | | | | | | [address] | | | | | | | [...]
--- OUTSIDE RECORDS SUMMARY | ~2019-11-18 | XMS | Encounter Summary ---
Demographics + + + | Address | [address] | | | [place] [address] | + + + | Home Phone [...] Team Providers + +------+ + | Care Head Of Insight Name | Role | Phone | + +------+ + | Rahul Silva MD | PCP | | + +------+ + Encounter Details +--------+ + + + + | Date | Type | Department | Care Team | Description | +--------+ + + + + | 05/27/ | Orders Only | [facility] | Conversion | | | 2018 | | NEPRHOLOGY [place] | Transaction, | | | | | [address] | Provider Unknown | | | | | [address] [place], [place] | [phone] | | | | | [address] | (Fax) | | | | | [phone] | | | +--------+ + + + [...] 2020 | Visit | | [address] [facility] | | | | | | [address] [facility] | | | | | | [address] | | | | | | | | +--------+---------+ + + + documented as of this encounter Procedures + +--------+ + + + | Procedure Name | Priori | Date/Time | Associated Diagnosis | Comments | | | ty | | | | + +--------+ + + + | EXTERNAL LAB: CBC | Routin | 05/27/2018 | | Results for this | | | e | 12:00 AM | | procedure are in the | | | | PDT | | results section. | + +--------+ + + + | URINALYSIS WITH | Routin | 05/27/2018 | | Results for this | | MICROSCOPIC WITH | e | 12:00 AM | | procedure are in the | | CULTURE IF INDICATED | | PDT | | results section. | + +--------+ + + + | CULTURE, URINE | Routin | 05/27/2018 | | Results for this | | | e | 12:00 AM | | procedure are in the | | | | PDT | | results section. | + +--------+ + + + | COMPREHENSIVE | Routin | 05/27/2018 | | Results for this | | METABOLIC PANEL | e | 12:00 AM | | procedure are in the | | | | PDT | | results section. | + +--------+ + + + documented in this encounter Results Culture, Urine (05/27/2018 12:00 AM PDT) + + | Specimen | + + | Urine specimen | | (specimen) | + + + + + | Narrative | Performed At | + + + | Specimen Description CULTURE | EXTERNAL LAB | | REPORT | | | STATUS | | | | | + + + + +---------+ + + | Performing | Address | City/State/Zipcode | Phone Number | | Organization | | | | + +---------+ + + | EXTERNAL LAB | | | | + +---------+ + + Urinalysis with Microscopic with Culture if Indicated (05/27/2018 12:00 AM PDT) + + + + [...] + + + | Spec Grav, | 1.010 | 1.005 - 1.030 | EXTERNAL | | | Fluid | | | LAB | | + + + + + + | Leukocyte | Comment: small | | EXTERNAL | | | Esterase, [...] + + + + | Total | Comment: 100 | | EXTERNAL | | | Protein | | | LAB | | + + + + + + | pH, Urine | 7 | 5 - 9 | EXTERNAL | | | | | | LAB | | + + + + + + | Blood, | Comment: small | | EXTERNAL | | | Urine | | | LAB | | + + + + + + | Ketones | neg | | EXTERNAL | | | | | | LAB | | + + + + + + | Bilirubin, | Negative | | EXTERNAL | | | Urine | | | LAB | | + + + + + + | Glucose, | Comment: moderate | | EXTERNAL | | | Urine | | | LAB | | + + + + + + | WBC, UA | 30 (A) | 0 - 4 | EXTERNAL | | | | | | LAB | | + + + + + + | RBC, UA | 30 (A) | 0 - 4 | EXTERNAL | | | | | | LAB | | + + + + + + | Epithelial | squamous1+ | | EXTERNAL | | | Cells | | | LAB | | + + + + + + | Bacteria, | None Seen | | EXTERNAL | | | UA | | | LAB | | + + + + + + | HYALINE | None Seen | | EXTERNAL | | | CASTS [...] + +---------+ + + External Lab: CBC (05/27/2018 12:00 AM PDT) + + + + [...] + + + | RED CELL | 3.88 (A) | 4.3 - 5.7 10 | EXTERNAL | | | COUNT | | | LAB | | + + + + + + | Hgb | 11.7 (A) | 13.5 - 18.0 | EXTERNAL | | | | | g/dL | LAB | | + + + + + + | Hematocrit, | 33.5 (A) | 41 - 50 % | EXTERNAL | | | POC | | | LAB | | + + + + + + | MCV | 86.5 | 81 - 99 fL | EXTERNAL | | | | | | LAB | | + + + + + + | MCH | 30 | 27 - 33 pg | EXTERNAL | | | | | | LAB | | + + + + + + | MCHC | 35 | 30 - 36 g/dL | EXTERNAL | | | | | | LAB | | + + + + + + | Platelet | 255 | 140 - 440 K/ L | EXTERNAL | | | Count | | | LAB | | | Plasma | | | | | + + + + + + | RDW-CV | 14.1 | 10.5 - 15.0 % | EXTERNAL [...] + + + | % Segmented | 71.1 | 39 - 80 % | EXTERNAL | | | | | | LAB | | | Neutrophils | | | | | + + + + + + | % | 15.6 (A) | 24 - 44 % | EXTERNAL | | | Lymphocytes | | | LAB | | + + + + + + | % Monocytes | 7.7 | 0 - 12 % | EXTERNAL | | | | | | LAB | | + + + + + + | % | 5.6 | 0 - 6 % | EXTERNAL | | | Eosinophils | | | LAB | | + + + + + + | % Basophils | 0.0 | 0 - 2 % | EXTERNAL [...] + +---------+ + + Comprehensive Metabolic Panel (05/27/2018 12:00 AM PDT) + + + + + + | Component | Value | Ref Range | Performed | Pathologist | | | | | At | Signature | + + + + + + | Glucose, | 137 (A) | 70 - 100 mg/dL | EXTERNAL | | | Fasting | | | LAB | | + + + + + + | BUN | 34 (A) | 6 - 23 mg/dL | EXTERNAL | | | | | | LAB | | + + + + + + | Creatinine | 2.42 (A) | 0.70 - 1.18 | EXTERNAL [...] Protein, | 6.2 | 6.0 - 8.3 g/dL | EXTERNAL | | | Total | | | LAB | | + + + + + + | Albumin | 3.3 (A) | 3.5 - 5.0 | EXTERNAL | | | | | | LAB | | + + + + + + | Globulin | 2.9 | 1.8 - 3.5 | EXTERNAL | | | | | | LAB | | + + + + + + | A/G Ratio | 1.1 | 1.1 - 2.4 | EXTERNAL | | | | | | LAB | | + + + + + + | Bilirubin | 0.3 | 0.0 - 1.2 mg/dL | EXTERNAL | | | Total | | | LAB | | + + + + + + | ALP, | 103 | 31 - 120 | EXTERNAL | | | External | | | LAB | | + + + + + + | ALT | 5 (A) | 7 - 52 U/L | EXTERNAL | | | | | | LAB | | + + + + + + | AST | 7 (A) | 13 - 39 U/L | EXTERNAL | | | | | | LAB | | + + + + + + | Na | 139 | 132 - 143 | EXTERNAL | | | | | mmol/L | LAB | | + + + + + + | K | 3.7 | 3.6 - 5.1 | EXTERNAL | [...] + + + | Anion Gap | 11.7 | 7 - 21 mmol/L | EXTERNAL | | | | | | LAB | | + + + + + + | Estimated | 26 | mg/dL | EXTERNAL | | | [...]
--- OUTSIDE RECORDS SUMMARY | ~2019-11-18 | XMS | Encounter Summary ---
Demographics + + + | Address | [address] | | | [place] [address] | + + + | Home Phone [...] Team Providers + +------+ + | Care Arborist Representative Name | Role | Phone | + +------+ + | Rahul Silva MD | PCP | | + +------+ + Encounter Details +--------+---------+ + + + | Date | Type | Department | Care Team | Description | +--------+---------+ + + + | 10/04/ | Office | [facility] | Farrukh Acuna MD | CKD (chronic kidney | | 2019 | Visit | NEPHROLOGY [place] | [address] [place] | disease) stage 5, | | | | [address] | [address] [place], [place] | GFR less than 15 | | | | [address] | [address] | ml/min (HCC) | | | | [place], [place] | | (Primary Dx); Anemia | | | | [address] | | of chronic kidney | | | | [phone] | | failure, stage 5 | | | | | | (HCC); Essential | | | | | | hypertension; Iron | | | | | | deficiency; | | | | | | Secondary | | | | | | hyperparathyroidism | | | | | | ([facility]); 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, with | | | | | | long-term current | | | | | | use of insulin | | | | | | ([facility]); Edema of | | | | | | lower extremity; | | | | | | Hypomagnesemia; | | | | | | Vitamin D deficiency | +--------+---------+ + + + Social [...] + + + | Blood Pressure | 120/42 | 10/04/2019 2:18 PM | | | | | PST | | + + + + + | Pulse | 80 | 10/04/2019 2:18 PM | | | [...] Instructions Patient Instructions Farrukh Acuna MD - 10/04/2019 2:20 PM PSTDiscussions/Recommendations : I discussed today with [...] avoid all kinds of NSAIDs for analgesia. Also: He will F/U with the Vascular Surgery team for an AV fistula construction. I decreased his Amlodipine to 5 mg daily. He will bring me back his home weights & BP charts if they fall outside of the optimal p rovided range. At that time, I will decide whether any changes to his vasoactive regimen are warranted. I asked him to elevate his legs for 1 and 1/2 hours once a day. He knows that he still n eeds to be active and ambulatory carefully as possible. I restarted him on Aranesp 60 mcg monthly. We will consider sending for [...] encounter Progress Notes Farrukh Acuna MD - 10/04/2019 2:20 PM PST Patient Active Problem List Diagnosis Date Noted POA Intertrochanteric fracture of left hip, closed, initial encounter 08/03/2016 Unknown Priority: High Laceration of left ear, initial encounter 08/03/2016 Unknown Priority: High Acute hyperkalemia 08/03/2016 Unknown Priority: Medium Intractable pain 08/04/2016 Unknown Priority: Low Insulin dependent type 2 diabetes mellitus, uncontrolled 08/04/2016 Unknown Priority: Low Status post fall 08/03/2016 Unknown Priority: Low CKD (chronic kidney disease) stage 5, GFR less than 15 ml/min 08/26/2019 Unknown Iron deficiency 07/26/2019 Unknown Secondary hyperparathyroidism 01/17/2017 Unknown PAOLO on CPAP 08/04/2016 Unknown Phantom limb pain 08/04/2016 Unknown Stage 5 chronic kidney disease not on chronic dialysis 08/03/2016 Unknown Hypomagnesemia 02/03/2015 Unknown Adiposity 06/06/2014 Unknown Anemia of chronic kidney failure, stage 5 06/06/2014 Unknown Cataract of both eyes 06/06/2014 Unknown Diabetes mellitus 06/06/2014 Unknown Edema of lower extremity 06/06/2014 Unknown History of stroke 06/06/2014 Unknown Hypertension 06/06/2014 Unknown Hyperuricemia 06/06/2014 Unknown Proteinuria 06/06/2014 Unknown Status post amputation of lower extremity 06/06/2014 Unknown Tobacco dependence syndrome 06/06/2014 Unknown Vitamin D deficiency 06/06/2014 Unknown PAOLO (obstructive sleep apnea) 02/16/2014 Unknown COPD (chronic obstructive pulmonary disease) 02/16/[address] Silva: I saw your patient Mr. Andujar in the office on an urgent basis in hospital F/U today with h is daughter + he is here to F/U on his severe CKD & its associated complications. On 9, his sCr & eGFR were 4.44 & 13 vs 3.03 & 20 on 03/01/19. He was hospitalized in late 08/2019 with Strep pneumoniae LLL pneumonia. He was in the ED in early 03/2019 with dyspnea; given bronchodilators, diuresed & felt bett er. He was hospitalized in late 01/2019 with "perforated bowel". He was hospitalized in 10/2016 with severe pneumonia, severe ZEKE; needed KETTLE LOADER for ~5 weeks b efore renal function recovery mid 12/2016. He was admitted to [facility] for 3 nights in July 2016 for [...] needed for Indigestion., Disp: , Rfl : amlodipine (NORVASC) 10 MG tablet, Take 10 mg by mouth Daily., Disp: , Rfl: aspirin 81 mg chewable tablet, Take 81 mg by mouth Daily., Disp: , Rfl: atenolol (TENORMIN) 50 mg tablet, Take 25 mg by mouth Daily., Disp: , Rfl: [...] mouth every 14 days., Disp: , Rfl: docusate-senna (SENOKOT-S) 50-8.6 mg per tablet, Take [...] MG TABS, Take 1 tablet by mouth 2 times daily., Disp: , Rfl: ondansetron (ZOFRAN ODT) 8 [...] Disp: , Rfl: 0 Physical Exam: BP 120/42 | Pulse 80 | Ht 1.727 m (5' 8") | Wt 78 kg (172 lb) | BMI 26.15 kg/m General appearance: Pleasant, not in acute distress. Wheel chair bound. Neck: Supple without tracheal deviation or jugular venous distension. Head and ENT: Head is atraumatic. The oropharynx is without erythema or thrush. Eyes: Anicteric. The extraocular muscle movements are normal. Lungs: Good A/E to auscultation except for a decreased A/E at the LLL. There are mild d iffuse inspiratory wheezes. Heart: Regular rate and rhythm [...] thrill. Lab Results Component Value Date HGB 8.2 (A) 09/30/2019 HGB 10.5 (L) 09/07/2019 HCT 31.0 (L) 09/07/2019 NA 137 09/30/2019 K 4.2 09/30/2019 CL 101 09/30/2019 CO2 23 09/30/2019 CO2 29 08/24/2019 BUN 54 (A) 09/30/2019 CREA 4.09 (A) 09/30/2019 CREA 4.60 (A) 08/09/2019 CREA 4.08 (A) 07/19/2019 CALCIUM 7.6 (A) 09/30/2019 CALCIUM 10.5 09/07/2019 ALBUMIN 3.5 09/30/2019 PHOS 4.2 08/05/2016 EGFR 14.0 (A) 09/30/2019 FERRITIN 107.3 07/19/2019 PTH 146.6 (A) 05/27/2019 LABPROT 2445.6 (A) 03/01/2019 Old Labs: Lab Results Component Value Date BUN 49 [...] 19.5 (A) 05/27/2019 LABPROT 2,445.6 (A) 03/01/2019 [id number] 30 10/08/2018 Assessment: Mr. Andujar is a 78 y.o. male patient with stage IV CKD on a background of diabetes & hypert ension and recent hospitalization for C-diff and hehydration. The most likely pathology here is that of diabetic nephropathy +/- hypertensive nephrosclerosis/arteriolosclerosis. He was hospitalized in 10/2016 with severe pneumonia, severe ZEKE; needed KETTLE LOADER for ~5 weeks b efore renal function recovery mid 12/2016. RENAL FUNCTION: Below baseline vs 2015. He had a stage 1 ZEKE (acute kidney injury) in ear ly 07/2017 BLOOD PRESSURE: Reportedly better control, 130's - 140's / 40's - 60's BLOOD SUGAR: Reports [...] Also: I see no need for acute KETTLE LOADER. I see no need to send him to the ED. He will F/U with the Vascular Surgery team for an AV fistula construction. I decreased his Amlodipine to 5 mg daily. He will bring me back his home [...] including constipation. he voiced good understanding. I restarted him on Aranesp 60 mcg monthly. We will consider sending for [...] opportunity to see this high-complexity patient in hospital F/U on an urgent basis today, as we are trying to prevent a hospitalization for severe/wors ening renal failure and/or life-threatening electrolytes or volume imbalance. Please do not hesitate to call me at any time with questions or concerns. Truly yours, Farrukh Acuna MD FACP, FASH, FAHA documented in this enco unter Plan of Treatment +--------+---------+ + + + | Date | Type | Specialty | Care Team | Description | +--------+---------+ + + + | 12/06/ | Office | Nephrology | Farrukh Acuna MD | | | 2019 | Visit | | [address] [facility] | | | | | | [address] [place], [place] | | | | | | [address] | | | | | | | | +--------+---------+ + + + documented as of this encounter Visit Diagnoses + + | Diagnosis | + + | CKD (chronic kidney disease) stage 5, GFR less than 15 ml/min ([facility]) - Primary Chronic | | kidney disease, Stage V | + + | Anemia of chronic kidney failure, stage 5 (HCC) | + + | Essential hypertension Unspecified essential hypertension | + + | Iron deficiency Other disorders of iron metabolism | + + | Secondary hyperparathyroidism (HCC) Secondary hyperparathyroidism (of renal origin) | + + | Type 2 diabetes mellitus with diabetic nephropathy, with long-term current use of | | insulin (HCC) | + + | Edema of lower extremity Edema | + + | Hypomagnesemia Disorders of magnesium metabolism | + + | Vitamin D deficiency Unspecified vitamin D deficiency | + + documented in this encounter
--- OUTSIDE RECORDS SUMMARY | ~2019-11-18 | XMS | Encounter Summary ---
Demographics + + + | Address | [address] | | | [place] [address] | + + + | Home Phone | | + + + | Preferred Language | Unknown | + + + | Marital Status | Single | + + + | Faith Affiliation | PRO | + + + [...] [place] | | | | | [address] | | + + + + + Care Team Providers + +------+ + | Care Performance Engineer Name | Role | Phone | + +------+ + PCP | Unavailable | + +------+ + Encounter Details +--------+ + + + + | Date | Type | Department | Care Team | Description | +--------+ + + + + | 12/28/ | Procedure - | [facility] | Record, Operation | Operative Report | | 1996 | | [facility] [address] | | | | | Transcribed | Ruben Linares | | | | | | Mailcode: [facility] | | | | | | [facility] | | | | | | Healing, [address] | | | | | | [facility] [place] | | | | | | [address] | | | | | | [phone] | | | +--------+ + + + [...] | + +--------+ + + + | OPERATION RECORD | | 12/28/1996 | | Results for this | | | | 12:00 AM | | procedure are in the | | | | PST | | results section. | + +--------+ + + + documented in this encounter Results OPERATION RECORD (12/28/1996 12:00 AM PST) + + | Procedure Note | + + | 12/28/1996 12:00 AM [facility] | | [facility] | | [address], [place] [address] | | [facility] | | | | OPERATION RECORD | | | | Med Rec No.: [id number] Date: 12/28/96 | | | | Name: Mehran Andujarald Arturo | | | | | | ATTENDING SURGEON: Robert Carlson M.D. | | Professor, | | Vascular Surgery | | | | COFFEE URN ATTENDANT(S): Nick Noriega M.D. | | Nuclear Plant Equipment Operator, General Surgery | | | | POSTOPERATIVE DIAGNOSIS(ES): Left stump osteophyte. | | | | OPERATION(S) PERFORMED: Revision of left jsbas-ecs-dnnm amputation | | and excision of stump osteophyte. | | | | SPECIMEN(S) REMOVED: 1. Swab of pseudocapsule for culture. | | 2. Osteophyte to Pathology. | | | | ANESTHESIA: General endotracheal anesthesia. | | | | INDICATIONS: The patient is a 56-year-old white male who | | is status post left wksxg-swo-jhwd | | amputation three years ago secondary | | to embolus. He has developed pain over the stump. A recent CT scan showed | | an osteophyte growing on the end of the stump. | | | | PROCEDURE: The patient was taken to the Operating Room. | | General endotracheal anesthesia was | | performed by Anesthesia. The | | left qxibs-deg-duqb amputation stump was sterilely prepped and draped in a | | standard surgical fashion. | | | | Using a #10 blade scalpel, a 5 cm segment of the old amputation scar was | | incised and extended sharply to the pseudocapsule of the osteophyte of the | | left stump. Upon entering the pseudocapsule, about 20 cc of serous fluid | | exuded. A swab of this was sent for culture. The contents of the capsule | | were removed. There appeared to be morsels of adipose tissue along with | | small bits of bone fragments. Using cautery, the pseudocapsule and thick | | fibrous tissue around the osteophyte was excised circumferentially. This | | exposed the osteophyte. Using a rongeur, the osteophyte was removed until | | the surface of the femur was smooth. Using cautery all bleeding points were | | stopped. | | | | Using sutures of 3-0 Vicryl, the fascial and muscles layers of the stump | | were closed over the end of the femur. This was done in two layers. The | | skin was closed using interrupted vertical mattress sutures using 4-0 nylon. | | The stump was sterilely dressed in a standard manner. | | | | All counts were correct at the end of the case. Blood loss was minimal. | | | | The patient was transferred to the Post Anesthesia Care Unit in stable | | condition. | | | | | | | | Nick Noriega M.D. | | Nuclear Plant Equipment Operator, General Surgery | | Robert Carlson M.D. | | Professor, | | Vascular Surgery | | | | DOMINIC/jc | | | | A | | | | cc: | | | + + documented in this encounter Visit Diagnoses Not on filedocumented in this encounter"
--- OUTSIDE RECORDS SUMMARY | ~2019-11-18 | XMS | Encounter Summary ---
Demographics + + + | Address | [address] | | | [place] [address] | + + + | Home Phone [...] Team Providers + +------+ + | Care Drawing Tracer Name | Role | Phone | + [...] + + | 09/23/ | Telephone | [facility] | Brian Orosco MD | Advice Only | | 2019 | | VASCULAR SURGERY | [address] | | | | | [address] [place] | [place], [place] | | | | | [place], [place] | [address] | | | | | [address] | [phone] | | | | | [phone] | | | +--------+ + + + [...] 2020 | Visit | | [address] [facility] | | | | | | [address] [place] | | | | | | [address] | | | | | | (Fax) | | +--------+---------+ + + + documented as of this encounter Visit Diagnoses Not on filedocumented in this encounter"
--- OUTSIDE RECORDS SUMMARY | ~2019-11-18 | XMS | Encounter Summary ---
Demographics + + + | Address | [address] | | | [place] [address] | + + + | Home Phone | | + + + | Preferred Language | Unknown | + + + | Marital Status | | + + + | Scientologist Affiliation | 1077 | + + + [...] Providers + +------+ + | Care Metal Furniture Repairer Name | Role | Phone | + +------+ + | Rahul Silva MD | PCP | | + +------+ + Encounter Details +--------+ + + + + | Date | Type | Department | Care Team | Description | +--------+ + + + + | 02/24/ | Orders Only | [facility] | Conversion | | | 2016 | | NEPHROLOGY [place] | Transaction, | | | | | [address] | Provider Unknown | | | | | [address] [place] | | | | | | [address] | (Fax) | | | | | [phone] | | | +--------+ + + + [...] | | | | | | [address] [facility] | | | | | | [address] | | | | | | | [...] - 1.030 | EXTERNAL | | | [place] | | | LAB | | + [...] | | | LAB | | | [place] | | | | | + + [...]
--- OUTSIDE RECORDS SUMMARY | ~2019-11-18 | XMS | Encounter Summary ---
Demographics + + + | Address | [address] | | | [place] [address] | + + + | Home Phone [...] Team Providers + +------+ + | Care Straight Line Press Setter Name | Role | Phone | [...] [place] | (cancellation) | | | | [facility] [place], | [place], [place] | | | | | [place] [address] | [address] | | | | | [phone] | | | +--------+ + + + [...] 2020 | Visit | | [address] [facility] | | | | | | [address] [place] | | | | | | [address] | | | | | | | | +--------+---------+ + + + documented as of this encounter Visit Diagnoses Not on filedocumented in this encounter"
--- OUTSIDE RECORDS SUMMARY | ~2019-11-18 | XMS | Encounter Summary ---
Demographics + + + | Address | [address] | | | [place] [address] | + + + | Home Phone | | + + + | Preferred Language | Unknown | + + + | Marital Status | | + + + | Alevism Affiliation | 1077 | + + + | Race | Unknown | + + + | Ethnic Group | Unknown | + + + Author + + + | Author | [facility] | | | and [place] | + + + | Organization | [facility] | | [...] Providers + +------+ + | Care Manager Battery Name | Role | Phone | + [...] + + | 08/13/ | Telephone | [facility] | Farrukh Acuna MD | Other (lab result) | | 2019 | | NEPRHOLOGY [place] | [address] [facility] [address] | | | | | [address] | [address] [place], [place] | | | | | [address] [place], [place] | [address] | | | | | [address] | | | | | | [phone] | | | +--------+ + + + [...] 2020 | Visit | | [address] [facility] | | | | | | [address] [place], [place] | | | | | | [address] | | | | | | | | +--------+---------+ + + + documented as of this encounter Visit Diagnoses Not on filedocumented in this encounter"
--- OUTSIDE RECORDS SUMMARY | ~2019-11-18 | XMS | Encounter Summary ---
Demographics + + + | Address | [address] | | | [place] [address] | + + + | Home Phone | | + + + | Preferred Language | Unknown | + + + | Marital Status | Single | + + + | Judaism Affiliation | PRO | + + + | Race | White | + + + | Ethnic Group | Not or | + + + Author + + + | Author | [facility] | + + + | Organization | [facility] | + + + | Address | Unknown | + + + | Phone | Unavailable | + + + Support + + + + + | Name | Relationship | Address | Phone | + + + + + | Darci Andujar | [address] | [place] | | | | | [address] | | + + + + + Care Team Providers + +------+ + | Care Commercial Real Estate Associate Name | Role | Phone | + +------+ + PCP | Unavailable | + +------+ + Encounter Details +--------+ + + + + | Date | Type | Department | Care Team | Description | +--------+ + + + + | 06/07/ | Transcribed | [facility] at | [place], Other | Transcribed | | 1996 | | [place] [address] | | | | | [address] | | | | | | Mailcode: OP[address] | | | | | | [address] | | | | | | [facility] | | | | | | [place] [address] | | | | | | [phone] | | | +--------+ + + + [...] as of this encounter Progress Notes Interface, Law Researcher In - 01/22/2007 3:04 AM PST [address] [address] or June 07, 1997 Pravin VALLES MD [address] [place] [address] [place] [address] RE:Kavon Andujar MR#:[id number] aVlles: I saw Kavon Andujar in the Neurology Clinic today and have enclosed a copy of my note. 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 He also endorses three episodes of occipital head trauma during the course of that hospitalization, and apparently has also fallen down on several occasions since that time, with major problems with balance and incoordination. Kavon's neurologic examination today was remarkable for intention tremor with no evidence of increase intracranial pressures, masses, or shifts. 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 Despite the lack of clinical findings to suggest increasing intracranial pressures, masses, or shifts, I nevertheless feel that Kavon would require MR imaging of the posterior cranial fossa. Specifically, his three episodes of occipital head trauma and his prior history of hemangiomatous involvement of the liver, lung, pancreas, kidney, and small intestine raises concern about the possibility of cerebellar hemangiomas and/or hematomas. Mr. aJcobson will also require reevaluation in Dr. 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 Should his brain MRI scan fail to reveal any structural pathology in the posterior cranial fossa, Kavon should be considered for an empiric trial with beta blockers (propranolol) for his intention tremors. Other pharmacologic agents that may be considered in this regard would include: Diamox; primidone; and Neurontin. I do hope that this information has been helpful. I thank you for allowing me to participate in Kavon Andujar's care. I can be reached at if you have any questions or would like to discuss Kavon's case over the telephone. Sincerely, Michelle Landon M.D. Director Of Infection Prevention, Neurology JINNY/ C: 06/13/97 cc: Alina Moise M.D. Division of Neurosurgery [facility] Robert Carlson M.D. Division of Vascular Surgery [facility] documented in this encounter Plan of Treatment Not on filedocumented as of this encounter Visit Diagnoses Not on filedocumented in this encounter
--- OUTSIDE RECORDS SUMMARY | ~2019-11-18 | XMS | Encounter Summary ---
Demographics + + + | Address | [address] | | | [place] [address] | + + + | Home Phone [...] Team Providers + +------+ + | Care Store Clerk Name | Role | Phone | + +------+ + | Rahul Silva MD | PCP | | + +------+ + Encounter Details +--------+---------+ + + + | Date | Type | Department | Care Team | Description | +--------+---------+ + + + | 07/26/ | Office | [facility] | Farrukh Acuna MD | Stage 5 chronic | | 2019 | Visit | NEPHROLOGY [place] | [address] [place] | kidney disease not | | | | [address] | [address] [place], [place] | on chronic dialysis | | | | [address] | [address] | (HCC) (Primary Dx); | | | | [place], [place] | | Edema of lower | | | | [address] | | extremity; Tobacco | | | | [phone] | | dependence syndrome; | | | [...] | Blood Pressure | 122/40 | 07/26/2019 1:43 PM | | | | | PDT | | + + + + + | Pulse | 68 | 07/26/2019 1:43 PM | | | | | PDT [...] 85 kg (187 lb 8 oz) | 07/26/2019 1:43 PM | | | | | PDT | | + + + + + | Height | 172.7 cm (5' 8") | 07/26/2019 1:43 PM | | | | | PDT | | + + + + + | Body Mass Index | 28.51 | 07/26/2019 1:43 PM | | | | | PDT | | + + + + + documented in this encounter Patient Instructions Patient Instructions Farrukh Acuna MD - 07/26/2019 1:10 PM PDTiscussions/Recommendations: I discussed today with Mr. Andujar [...] Also: I see no need for acute LOCK TENDER CHIEF OPERATOR. I see no need to send him [...] Progress Notes Farrukh Acuna MD - 07/26/2019 1:10 PM PDT Progress Notes by Farrukh Acuna MD at 05/31/19 0714 Author: Farrukh Acuna MD Service: (none) Author Type: Physician Filed: 05/31/19 1232 Encounter Date: 05/31/2019 Status: Signed Pricing Clerk: Farrukh Acuna MD (Physician) Patient Active Problem List Diagnosis CKD (chronic kidney disease), stage IV Type 2 diabetes mellitus with diabetic nephropathy, with long-term current use of insul in ([facility]) FH: HTN (hypertension) Edema of right lower [...] 10/2016 with severe pneumonia, severe ZEKE; needed LOCK TENDER CHIEF OPERATOR for ~5 weeks b efore renal function recovery mid 12/2016. He was admitted to [facility] for 3 nights in July 2016 [...] 19.5 (A) 05/27/2019 LABPROT 2,445.6 (A) 03/01/2019 [id number] 30 10/08/2018 Assessment: Mr. Andujar is a 78 y.o. male patient with stage IV CKD on a background of diabetes & hypert ension and recent hospitalization for C-diff and hehydration. The most likely pathology here is that of diabetic nephropathy +/- hypertensive nephrosclerosis/arteriolosclerosis. He was hospitalized in 10/2016 with severe pneumonia, severe ZEKE; needed LOCK TENDER CHIEF OPERATOR for ~5 weeks b efore renal function [...] Also: I see no need for acute LOCK TENDER CHIEF OPERATOR. I see no need to send him [...] concerns. Truly yours, Farrukh Acuna MD FACP, [facility], FA documented in this enco unter Plan of Treatment +--------+---------+ + + + | Date | Type | Specialty | Care Team | Description | +--------+---------+ + + + | 12/06/ | Office | Nephrology | Farrukh Acuna MD | | | 2019 | Visit | | [address] [facility] | | | | | | [address] [place], [place] | | | | | | [address] | | | | | | | [...]
--- OUTSIDE RECORDS SUMMARY | ~2019-11-18 | XMS | Encounter Summary ---
Demographics + + + | Address | [address] | | | [place] [address] | + + + | Home Phone [...] Team Providers + +------+ + | Care Transportation Modeler Name | Role | Phone | [...] [address] Young | | | | | [place], [place] | [place], [place] | | | | | [address] | [address] | | | | | [phone] | [phone] | | | | | | | [...] 2020 | Visit | | [address] [facility] | | | | | | [facility] | | | | | | [address] | | | | | | | | +--------+---------+ + + + documented as of this encounter Procedures + +--------+ + + + | Procedure Name | Priori | Date/Time | Associated Diagnosis | Comments | | | ty | | | | + +--------+ + + + | RENAL FUNCTION PANEL | Routin | 11/10/2016 | | Results for this | | | e | 4:27 AM | | procedure are in the | | | | PST | | results section. | + +--------+ + + + documented in this encounter Results Renal Function Panel (11/10/2016 4:27 AM PST) + + + + + + | Component | Value | Ref Range | Performed | Pathologist | | | | | At | Signature | + + + + + + | Na | 140 | 135 - 145 | EXTERNAL | | | | | mmol/L | LAB | | + + + + + + | K | 3.5 | 3.5 - 4.9 | EXTERNAL | | | | | mmol/L | LAB | | + + + + + + | Cl | 103 | 99 - 109 mmol/L | EXTERNAL | | | | | | LAB | | + + + + + + | CO2 | 24 | 23 - 32 mmol/L | EXTERNAL | | | | | | LAB | | + + + + + + | Anion Gap | 17 | 5 - 20 mmol/L | EXTERNAL | | | | | | LAB | | + + + + + + | Glucose, | 169 (H) | 65 - 99 mg/dL | EXTERNAL | | | Fasting | | | LAB | | + + + + + + | BUN | 40 (H) | 8 - 25 mg/dL | EXTERNAL | | | | | | LAB | | + + + + + + | Creatinine | 3.7 (H) | 0.70 - 1.30 | EXTERNAL | | | | | mg/dL | LAB | | + + + + + + | Calcium | 7.9 (L) | 8.5 - 10.5 | EXTERNAL | | | | | mg/dL | LAB | | + + + + + + | Albumin | 2.2 (L) | 3.3 - 4.8 g/dL | EXTERNAL | | | | | | LAB | | + + + + + + | PHOSPHORUS | 4.5 | 2.3 - 4.8 mg/dL | EXTERNAL | | | | | | LAB | | + + + + + + | Estimated | 17 (L)Comment: GFR <60: | mL/min/1.73_m2 | EXTERNAL [...]
--- OUTSIDE RECORDS SUMMARY | ~2019-11-18 | XMS | Encounter Summary ---
Demographics + + + | Address | [address] | | | [place] [address] | + + + | Home Phone | | + + + | Preferred Language | Unknown | + + + | Marital Status | | + + + | Episcopal Affiliation | 1077 | + + + | Race | Unknown | + + + | Ethnic Group | Unknown | + + + Author + + + | Author | [facility] | | | and [place] | + + + | Organization | [facility] | | | [...] Team Providers + +------+ + | Care Boat Diesel Motor Mechanic Name | Role | Phone | [...] | | | stage 5, GFR | [address] | | | | | | less than | Phone: | | | | | | 15 ml/min | [phone] | | | | | | (HCC) | Fax: | | | | | | Procedures | [phone] | | | | | | VAS [...] + + | 10/20/ | Office | [facility] | Trisha Conner DNP | CKD (chronic kidney | | 2019 | Visit | VASCULAR SURGERY | [address] | disease) stage 5, | | | | [address] | [place], [place] | GFR less than 15 | | | | [place], [place] | [address] | ml/min (HCC) | | | | [address] | | (Primary Dx); AVF | | | | [phone] | | (arteriovenous | | | | [...] Trisha Conner DNP - 10/20/2019 2:30 PM [facility] [address] [place] [address] Office: [phone] DATE OF VISIT: 10/20/2019 PATIENT NAME: Kavon Andujar : 1940; AGE: 79 y.o.; Sex:M PHONE NUMBER: ; ; PROVIDER: Trisha Conner DNP PRIMARY CARE / REFERRING PHYSICIAN: No ref. provider found / Rahul Silva MD / [address] [facility] / [place] [address] REASON FOR EVALUATION / CHIEF COMPLAINT: Vascular Surgery Postoperative Visit for AVF creation The patient presents today for a Vascular Surgery Postoperative Visit. The patient is statu s post right brachiocephalic AVF creation, which was performed on 09/10/2019 at the [facility] Operating Room. The patient is not having any pain. The patient denie s fever, wound drainage, increasing redness, pus, increasing pain, increasing swelling. Phys ical examination revealed surgical incision is healed. He has good thrills over the AVF site . Patient's wool hat hydraulicker is Dr. Acuna. The patient is not [...] 2019 | Visit | | [address] [facility] | | | | | | [address] [place], [place] | | | | | | [address] | | | | | | | [...] stage 5, GFR less than 15 ml/min ([facility]) - Primary Chronic | | kidney disease, Stage V | + + | AVF (arteriovenous fistula) ([facility]) Arteriovenous fistula, acquired | + + documented in this encounter"
--- OUTSIDE RECORDS SUMMARY | ~2019-11-18 | XMS | Encounter Summary ---
Demographics + + + | Address | [address] | | | [place] [address] | + + + | Home Phone [...] Team Providers + +------+ + | Care Order Picker Name | Role | Phone | + +------+ + | Rahul Silva MD | PCP | | + +------+ + Encounter Details +--------+ + + + + | Date | Type | Department | Care Team | Description | +--------+ + + + + | 09/01/ | Orders Only | [facility] | Farrukh Acuna MD | | | 2013 | | NEPHROLOGY [place] | [address] [place] | | | | | [address] [place] | [address] [place], [place] | | | | | [address] [place], [place] | [address] | | | | | [address] | | | | | | [phone] | | | +--------+ + + + [...] 2019 | Visit | | [address] [facility] | | | | | | [address] [place] | | | | | | [address] | | | | | | | | +--------+---------+ + + + documented as of this encounter Procedures + +--------+ + + + | Procedure Name | Priori | Date/Time | Associated Diagnosis | Comments | | | ty | | | | + +--------+ + + + | EXTERNAL LAB: CBC | Routin | 09/01/2014 | | Results for this | | | e | 12:00 AM | | procedure are in the | | | | PDT | | results section. | + +--------+ + + + | URINALYSIS WITH | Routin | 09/01/2014 | | Results for this | | MICROSCOPIC WITH | e | 12:00 AM | | procedure are in the | | CULTURE IF INDICATED | | PDT | | results section. | + +--------+ + + + | MAGNESIUM | Routin | 09/01/2014 | | Results for this | | | e | 12:00 AM | | procedure are in the | | | | PDT | | results section. | + +--------+ + + + | RENAL FUNCTION PANEL | Routin | 09/01/2014 | | Results for this | | | e | 12:00 AM | | procedure are in the | | | | PDT | | results section. | + +--------+ + + + documented in this encounter Results Urinalysis with Microscopic with Culture if Indicated (09/01/2014 12:00 AM PDT) + + + + [...] + + | Total | 75 | Negative | EXTERNAL | | | Protein | | | LAB | | + + + + + + | pH, Urine | 7 | 5 - 9 | EXTERNAL | | | | | | LAB | | + + + + + + | Blood, | PositiveComment: 10 | | EXTERNAL | | | Urine [...] + +---------+ + + External Lab: CBC (09/01/2014 12:00 AM PDT) + + + + + + | Component | Value | Ref Range | Performed | Pathologist | | | | | At | Signature | + + + + + + | WBC | 13.1 (A) | 4.5 - 11.0 10 | EXTERNAL | | | | | | LAB | | + + + + + + | RED CELL | 3.82 (A) | 4.3 - 5.7 10 | EXTERNAL | | | COUNT | | | LAB | | + + + + + + | Hgb | 11.0 (A) | 13.5 - 18.0 | EXTERNAL | | | | | g/dL | LAB | | + + + + + + | Hematocrit, | 34.1 (A) | 41 - 50 % | EXTERNAL | | | POC | | | LAB | | + + + + + + | MCV | 89.3 | 81 - 99 fL | EXTERNAL | | | | | | LAB | | + + + + + + | MCH | 29 | 27 - 33 pg | EXTERNAL | | | | | | LAB | | + + + + + + | MCHC | 32 | 30 - 36 g/dL | EXTERNAL | | | | | | LAB | | + + + + + + | Platelet | 287 | 140 - 440 K/ L | EXTERNAL | | | Count | | | LAB | | | Plasma | | | | | + + + + + + | RDW-CV | 15.2 (A) | 10.5 - 15.0 % | [...] + + + | % Segmented | 78.8 | 39 - 80 % | EXTERNAL | | | | | | LAB | | | Neutrophils | | | | | + + + + + + | % | 7.1 (A) | 24 - 44 % | EXTERNAL | | | Lymphocytes | | | LAB | | + + + + + + | % Monocytes | 11.9 | 0 - 12 % | EXTERNAL | | | | | | LAB | | + + + + + + | % | 2.0 | 0 - 6 % | EXTERNAL | | | Eosinophils | | | LAB | | + + + + + + | % Basophils | 0.2 | 0 - 2 % | EXTERNAL [...] | | + +---------+ + + Magnesium (09/01/2014 12:00 AM PDT) + +-------+ + + [...] + +---------+ + + Renal Function Panel (09/01/2014 12:00 AM PDT) + + + + + + | Component | Value | Ref Range | Performed | Pathologist | | | | | At | Signature | + + + + + + | Glucose, | 82 | 70 - 100 mg/dL | EXTERNAL | | | Fasting | | | LAB | | + + + + + + | BUN | 23 | 6 - 23 mg/dL | EXTERNAL | | | | | | LAB | | + + + + + + | Creatinine | 1.78 (A) | 0.70 - 1.11 | EXTERNAL | | | | | mg/dL | LAB | | + + + + + + | PHOSPHORUS | | mg/dL | EXTERNAL | | | | | | LAB | | + + + + + + | Albumin | 3.8 | 3.5 - 5.0 | EXTERNAL | [...] + + + | Anion Gap | 13.4 | 7 - 21 mmol/L | EXTERNAL | | | | | | LAB | | + + + + + + | eGFR if not | | | EXTERNAL | | | | | | LAB | | | [place] | | | | | + + + + + + | Phosphorus, | 2.8 | 2.5 - 5.0 | EXTERNAL | | | Inorganic | | | LAB | | + + + + + + | BUN/Creatin | 12.9 | 6.0 - 28.6 | EXTERNAL | | | ine Ratio | | | LAB | | + + + + + + | Calcium | 9.5 | 8.4 - 10.2 | EXTERNAL | [...]
--- OUTSIDE RECORDS SUMMARY | ~2019-11-18 | XMS | Encounter Summary ---
Demographics + + + | Address | [address] | | | [place] [address] | + + + | Home Phone [...] Team Providers + +------+ + | Care Sheet Layer Name | Role | Phone | + +------+ + | Rahul Silva MD | PCP | | + +------+ + Encounter Details +--------+ + + + + | Date | Type | Department | Care Team | Description | +--------+ + + + + | 12/16/ | Orders Only | [facility] | Conversion | | | 2016 | | NEPHROLOGY [place] | Transaction, | | | | | [address] | Provider Unknown | | | | | [address] [place] | | | | | | [address] | (Fax) | | | | | [phone] | | | +--------+ + + + [...] | | | | [facility] | | | | | | [address] | | | | | | | | +--------+---------+ + + + documented as of this encounter Procedures + +--------+ + + + | Procedure Name | Priori | Date/Time | Associated Diagnosis | Comments | | | ty | | | | + +--------+ + + + | CREATININE, URINE, | Routin | 12/16/2016 | | Results for this | | 24HR | e | 12:10 PM | | procedure are in the | | | | PST | | results section. | + +--------+ + + + | CREATINE | Routin | 12/16/2016 | | Results for this | | | e | 12:10 PM | | procedure are in the | | | | PST | | results section. | + +--------+ + + + | CREATININE | Routin | 12/16/2016 | | Results for this | | | e | 12:10 PM | | procedure are in the | | | | PST | | results section. | + +--------+ + + + documented in this encounter Results Creatine (12/16/2016 12:10 PM PST) + + | Specimen | + + | | + + + + + | Narrative | Performed At | + + + | | EXTERNAL LAB | + + + + +---------+ + + | Performing | Address | City/State/Zipcode | Phone Number | | Organization | | | | + +---------+ + + | EXTERNAL LAB | | | | + +---------+ + + Creatinine, Urine, 24Hr (12/16/2016 12:10 PM PST) + +--------+ + + + | Component | Value | Ref Range | Performed | Pathologist | | | | | At | Signature | + +--------+ + + + | CREATININE | 23 (A) | 85 - 125 mL/min | EXTERNAL | | | CLEARANCE | | | LAB | | + +--------+ + + + | Creatinine | | | EXTERNAL | | | | | | LAB | | + +--------+ + + + | Creatinine, | | | EXTERNAL | | | Urine, | | | LAB | | | Random | | | | | + +--------+ + + + | Creatinine, | | | EXTERNAL | | | Urine, | | | LAB | | | Random | | | | | + +--------+ + + + + + | Specimen | + + | Urine specimen | | (specimen) | + + + +---------+ + + | Performing | Address | City/State/Zipcode | Phone Number | | Organization | | | | + +---------+ + + | EXTERNAL LAB | | | | + +---------+ + + Creatinine (12/16/2016 12:10 PM PST) + + + + + + | Component | Value | Ref Range | Performed | Pathologist | | | | | At | Signature | + + + + + + | Creatinine | 2.58 (A) | 0.5 - 1.5 mg/dL | EXTERNAL | | | | [...]
--- OUTSIDE RECORDS SUMMARY | ~2019-11-18 | XMS | Encounter Summary ---
Demographics + + + | Address | [address] | | | [place] [address] | + + + | Home Phone | | + + + | Preferred Language | Unknown | + + + | Marital Status | Single | + + + | Amish Affiliation | PRO | + + + | Race | White | + + + | Ethnic Group | Not or | + + + Author + + + | Author | [facility] | + + + | Organization | [facility] | + + + | Address | Unknown | + + + | Phone | Unavailable | + + + Support + + + + + | Name | Relationship | Address | Phone | + + + + + | Darci Zavala | [place] | [place] | | | | | [address] | | + + + + + Care Team Providers + +------+ + | Care Retarder Operator Name | Role | Phone | [...] | | | | | | [facility] | | | | | | [place] [address] | | | | | | [phone] | | | +--------+ + + + [...] as of this encounter Progress Notes Interface, Tile Applicator In - 02/14/2007 3:12 AM PDT [address] [address] or September 09, 1996 Nestor VALLES MD [address] [place] [id number] RE: PORFIRIO ZAVALA MR#: [id number] Valles: Your patient, Porfirio Zavala, was seen for follow up today in the Neurosurgery Clinic at [facility]. As you recall, he is a yezbx-dte-uabh-old man with stump pain and phantom limb pain secondary to a left udtha-qqy-pmrl amputation. Following our initial evaluation, we recommended [...] Fellow, Neurosurgery Alina Moise M.D. Professor and Vice President Of Talent Management, Division of Neurosurgery HECTOR/hiro documented in this encounter Plan of Treatment Not on filedocumented as of this encounter Visit Diagnoses Not on filedocumented in this encounter"
--- OUTSIDE RECORDS SUMMARY | ~2019-11-18 | XMS | Encounter Summary ---
Demographics + + + | Address | [address] | | | [place] [address] | + + + | Home Phone | | + + + | Preferred Language | Unknown | + + + | Marital Status | | + + + | Religion Affiliation | 1077 | + + + | Race | Unknown | + + + | Ethnic Group | Unknown | + + + Author + + + | Author | [facility] | | | and [place] | + + + | Organization | [facility] | | [...] Providers + +------+ + | Care Assembler Filters Name | Role | Phone | + +------+ + | Rahul Silva MD | PCP | | + +------+ + Encounter Details +--------+ + + + + | Date | Type | Department | Care Team | Description | +--------+ + + + + | 07/06/ | Orders Only | [facility] | Farrukh Acuna MD | | | 2018 | | NEPRHOLOGY [place] | [address] | | | | | [address] | [address] [place], [place] | | | | | [address] [place], [place] | [address] | | | | | [address] | | | | | | [phone] | | | +--------+ + + + [...] 2020 | Visit | | [address] [facility] | | | | | | [address] [place] | | | | | | [address] | | | | | | | [...] | | | LAB | | | [place] | | | | | + + [...]
--- OUTSIDE RECORDS SUMMARY | ~2019-11-18 | XMS | Encounter Summary ---
Demographics + + + | Address | [address] | | | [place] [address] | + + + | Home Phone [...] Providers + +------+ + | Care Parts Data Writer Name | Role | Phone | + +------+ + | Rahul Silva MD | PCP | | + +------+ + Encounter Details +--------+ + + + + | Date | Type | Department | Care Team | Description | +--------+ + + + + | 07/20/ | Orders Only | [facility] | Farrukh Acuna MD | Stage 4 chronic | | 2019 | | NEPHROLOGY [place] | [address] [place] | kidney disease (HCC) | | | | [address] | [address] [place], [place] | (Primary Dx); | | | | [address] | [address] | Persistent | | | | [place], [place] | | proteinuria; | | | | [address] | | Secondary | | | | [phone] | | hyperparathyroidism | | | | [...] 2020 | Visit | | [address] [facility] | | | | | | [address] [place] | | | | | | [address] | | | | | | | [...]
--- OUTSIDE RECORDS SUMMARY | ~2019-11-18 | XMS | Encounter Summary ---
Demographics + + + | Address | [address] | | | [place] [address] | + + + | Home Phone | | + + + | Preferred Language | Unknown | + + + | Marital Status | | + + + | Christian Affiliation | 1077 | + + + | Race | Unknown | + + + | Ethnic Group | Unknown | + + + Author + + + | Author | [facility] | | | and [place] | + + + | Organization | [facility] | | [...] Team Providers + +------+ + | Care Therapy Tech Name | Role | Phone | + +------+ + | Rahul Silva MD | PCP | | + +------+ + Encounter Details +--------+ + + + + | Date | Type | Department | Care Team | Description | +--------+ + + + + | 03/01/ | Orders Only | [facility] | Conversion | | | 2019 | | NEPHROLOGY [place] | Transaction, | | | | | [address] | Provider Unknown | | | | | [address] [place] | | | | | | [address] | (Fax) | | | | | [phone] | | | +--------+ + + + [...] Visit | | [address] [facility] | | | | | | [address] [facility] | | | | | | [address] | | | | | | | | +--------+---------+ + + + documented as of this encounter Procedures + +--------+ + + + | Procedure Name | Priori | Date/Time | Associated Diagnosis | Comments | | | ty | | | | + +--------+ + + + | EXTERNAL LAB: CBC | Routin | 03/01/2019 | | Results for this | | | e | 12:55 PM | | procedure are in the | | | | PDT | | results section. | + +--------+ + + + | IRON AND IRON | Routin | 03/01/2019 | | Results for this | | BINDING CAPACITY | e | 12:55 PM | | procedure are in the | | | | PDT | | results section. | + +--------+ + + + | URINALYSIS, | Routin | 03/01/2019 | | Results for this | | MICROSCOPIC ONLY | e | 12:55 PM | | procedure are in the | | | | PDT | | results section. | + +--------+ + + + | PROTEIN/CREATININE | Routin | 03/01/2019 | | Results for this | | RATIO, URINE | e | 12:55 PM | | procedure are in the | | | | PDT | | results section. | + +--------+ + + + | FERRITIN | Routin | 03/01/2019 | | Results for this | | | e | 12:55 PM | | procedure are in the | | | | PDT | | results section. | + +--------+ + + + | RENAL FUNCTION PANEL | Routin | 03/01/2019 | | Results for this | | | e | 12:55 PM | | procedure are in the | | | | PDT | | results section. | + +--------+ + + + documented in this encounter Results Iron and Iron Binding Capacity (03/01/2019 12:55 PM PDT) + +---------+ + + + | Component | Value | Ref Range | Performed | Pathologist | | | | | At | Signature | + +---------+ + + + | Iron | 55.85 | 37 - 160 | EXTERNAL | | | | | | LAB | | + +---------+ + + + | Iron | 24.1 | 20 - 55 | EXTERNAL | | | Saturation | | | LAB | | + +---------+ + + + | TIBC | 232 (A) | 245 - 400 | EXTERNAL | [...] + +---------+ + + Protein/Creatinine Ratio, Urine (03/01/2019 12:55 PM PDT) + + + + + + | Component | Value | Ref Range | Performed | Pathologist | | | | | At | Signature | + + + + + + | Protein/Cre | 2445.6 (A) | 0 - 150 | EXTERNAL [...] + +---------+ + + Urinalysis, Microscopic Only (03/01/2019 12:55 PM PDT) + + + + + [...] + + + + | Specific | 1.009 | 1.005 - 1.030 | EXTERNAL | | | [place] | | | LAB | | + [...] + + + + | Protein, | TraceComment: 100 | | EXTERNAL | | | Urine | | | LAB | | + + + + + + | pH, Urine | 6 | 5 - 9 | EXTERNAL | | | | | | LAB | | + + + + + + | Blood, | PositiveComment: Small | | EXTERNAL | | | Urine [...] + + + + | Glucose, | TraceComment: Small | | EXTERNAL | | | Urine [...] + +---------+ + + External Lab: CBC (03/01/2019 12:55 PM PDT) + + + + + [...] + + + | RED CELL | 3.21 (A) | 4.3 - 5.7 10 | EXTERNAL | | | COUNT | | | LAB | | + + + + + + | Hgb | 9.3 (A) | 13.5 - 18.0 | EXTERNAL | | | | | g/dL | LAB | | + + + + + + | Hematocrit, | 30.6 (A) | 41 - 50 % | EXTERNAL | | | POC | | | LAB | | + + + + + + | MCV | 95.3 | 81 - 99 fL | EXTERNAL | | | | | | LAB | | + + + + + + | MCH | 29 | 27 - 33 pg | EXTERNAL | | | | | | LAB | | + + + + + + | MCHC | 30 | 30 - 36 g/dL | EXTERNAL | | | | | | LAB | | + + + + + + | Platelet | 250 | 140 - 440 K/ L | [...] + + + | % Segmented | 74.4 | 39 - 80 % | EXTERNAL | | | | | | LAB | | | Neutrophils | | | | | + + + + + + | % | 12.1 (A) | 24 - 44 % | EXTERNAL | | | Lymphocytes | | | LAB | | + + + + + + | % Monocytes | 7.5 | 0 - 12 % | EXTERNAL | | | | | | LAB | | + + + + + + | % | 5.2 | 0 - 6 % | EXTERNAL | | | Eosinophils | | | LAB | | + + + + + + | % Basophils | 0.8 | 0 - 2 % | EXTERNAL [...] | | + +---------+ + + Ferritin (03/01/2019 12:55 PM PDT) + +-------+ + + + | Component | Value | Ref Range | Performed | Pathologist | | | | | At | Signature | + +-------+ + + + | Ferritin, | 175.6 | 30 - 400 ng/mL | EXTERNAL [...] + +---------+ + + Renal Function Panel (03/01/2019 12:55 PM PDT) + + + + + + | Component | Value | Ref Range | Performed | Pathologist | | | | | At | Signature | + + + + + + | Glucose, | 233 (A) | 70 - 100 mg/dL | EXTERNAL | | | Fasting | | | LAB | | + + + + + + | BUN | 38 (A) | 6 - 23 mg/dL | EXTERNAL | | | | | | LAB | | + + + + + + | Creatinine | 3.03 (A) | 0.70 - 1.18 | EXTERNAL | | | | | mg/dL | LAB | | + + + + + + | PHOSPHORUS | 5.0 | 2.5 - 5.0 mg/dL | EXTERNAL [...] | | | LAB | | | [facility] | | | | | + + + + + + | Phosphorus, | | | EXTERNAL | | | Inorganic | | | LAB | | + + + + + + | BUN/Creatin | 12.5 | 6.0 - 28.6 | EXTERNAL | | | ine Ratio | | | LAB | | + + + + + + | Calcium | 7.5 (A) | 8.5 - 10.3 | EXTERNAL | | | | | mg/dL | LAB | | + + + + + + | Estimated | 20 (A) | 60 - 140 mg/dL | [...]
--- OUTSIDE RECORDS SUMMARY | ~2019-11-18 | XMS | Encounter Summary ---
Demographics + + + | Address | [address] | | | [place] [address] | + + + | Home Phone [...] Providers + +------+ + | Care Stock Driver Name | Role | Phone | + +------+ + | Rahul Silva MD | PCP | | + +------+ + Encounter Details +--------+ + + + + | Date | Type | Department | Care Team | Description | +--------+ + + + + | 07/18/ | Orders Only | [facility] | Conversion | | | 2015 | | NEPHROLOGY [place] | Transaction, | | | | | [address] [facility] | Provider Unknown | | | | | [address] | [phone] | | | | | [address] | | | | | | [phone] | | | +--------+ + + + [...] | [address] [facility] [address] | | | | | | [address] [place], [place] | | | | | | [address] | | | | | | | | +--------+---------+ + + + documented as of this encounter Procedures + +--------+ + + + | Procedure Name | Priori | Date/Time | Associated Diagnosis | Comments | | | ty | | | | + +--------+ + + + | EXTERNAL LAB: DUNIA | Routin | 07/18/2016 | | Results [...] - 1.030 | EXTERNAL | | | [place] | | | LAB | | + [...] + + + | RED CELL | 3.48 (A) | 4.3 - 5.7 [...] | | | LAB | | | [place] | | | | | + + [...]
--- OUTSIDE RECORDS SUMMARY | ~2019-11-18 | XMS | Encounter Summary ---
Demographics + + + | Address | [address] | | | [place] [address] | + + + | Home Phone [...] Team Providers + +------+ + | Care Underwear Welter Name | Role | Phone | + [...] [address] | | | | | [place], [place] | [place], [place] | | | | | [address] | [address] | | | | | [phone] | [phone] | | | | | | | [...] 2020 | Visit | | [address] [facility] | | | | | | [facility] | | | | | | [address] | | | | | | | [...]
--- OUTSIDE RECORDS SUMMARY | ~2019-11-18 | XMS | Encounter Summary ---
Demographics + + + | Address | [address] | | | [place] [address] | + + + | Home Phone | | + + + | Preferred Language | Unknown | + + + | Marital Status | | + + + | Judaism Affiliation | 1077 | + + + | Race | Unknown | + + + | Ethnic Group | Unknown | + + + Author + + + | Author | [facility] | | | and [place] | + + + | Organization | [facility] | | [...] Providers + +------+ + | Care Civil Designer Name | Role | Phone | + +------+ + | Rahul Silva MD | PCP | | + +------+ + Encounter Details +--------+ + + + + | Date | Type | Department | Care Team | Description | +--------+ + + + + | 11/11/ | Orders Only | [facility] | Olman Toussaint MD | | | 2015 | | [address] | [address] | | | | | [place], [place] | [place], [place] | | | | | [address] | [address] | | | | | [phone] | [phone] | | | | | | | [...] | | | | [address] [facility] | | | | | | [address] | | | | | | | [...]
--- OUTSIDE RECORDS SUMMARY | ~2019-11-18 | XMS | Encounter Summary ---
Demographics + + + | Address | [address] | | | [place] [address] | + + + | Home Phone [...] Team Providers + +------+ + | Care Principal Data Architect Name | Role | Phone | + +------+ + | Rahul Silva MD | PCP | | + +------+ + Encounter Details +--------+ + + + + | Date | Type | Department | Care Team | Description | +--------+ + + + + | 10/28/ | Orders Only | [facility] | Conversion | | | 2016 | | NEPHROLOGY [place] | Transaction, | | | | | [address] | Provider Unknown | | | | | [address] [place] [address] | | | | | | [address] | (Fax) | | | | | [phone] | | | +--------+ + + + [...] | Visit | | [address] [facility] | | | | | | [address] [facility] | | | | | | [address] | | | | | | | [...]
--- OUTSIDE RECORDS SUMMARY | ~2019-11-18 | XMS | Encounter Summary ---
Demographics + + + | Address | [address] | | | [place] [address] | + + + | Home Phone [...] Team Providers + +------+ + | Care Extruder Operator Horizontal Name | Role | Phone | + [...] N Young | | | | | [place], [place] | [place], [place] | | | | | [address] | [address] | | | | | [phone] | [phone] | | | | | | | [...] 2020 | Visit | | [address] [facility] | | | | | | [address] [facility] | | | | | | [address] | | | | | | | [...]
--- OUTSIDE RECORDS SUMMARY | ~2019-11-18 | XMS | Encounter Summary ---
Demographics + + + | Address | [address] | | | [place] [address] | + + + | Home Phone [...] Providers + +------+ + | Care Manager Intranet Name | Role | Phone | + +------+ + | Rahul Silva MD | PCP | | + +------+ + Encounter Details +--------+ + + + + | Date | Type | Department | Care Team | Description | +--------+ + + + + | 10/03/ | Orders Only | [facility] | Collin Mirza, | | | 2015 | | NEPHROLOGY [place] | LEARNING DESIGN SPECIALIST [address] | | | | | [address] | [address] | | | | | [address] [place], [place] | [facility] | | | | | [address] | [address] | | | | | [phone] | [phone] | | | | | | | [...] | | | | | | 160 [facility] | | | | | | [address] | | | | | | | [...]
--- OUTSIDE RECORDS SUMMARY | ~2019-11-18 | XMS | Encounter Summary ---
Demographics + + + | Address | [address] | | | [place] [address] | + + + | Home Phone [...] Team Providers + +------+ + | Care Site Interpreter Name | Role | Phone | + [...] N Young | | | | | [place], [place] | [place], [place] | | | | | [address] | [address] | | | | | [phone] | [phone] | | | | | | | [...] 2020 | Visit | | [address] [facility] | | | | | | [address] [facility] | | | | | | [address] | | | | | | | [...]
--- OUTSIDE RECORDS SUMMARY | ~2019-11-18 | XMS | Encounter Summary ---
Demographics + + + | Address | [address] | | | [place] [address] | + + + | Home Phone [...] [place] | | | | | [address] | | + + + + + Care Team Providers + +------+ + | Care Gearcase Assembler Name | Role | Phone | [...] [address] | | | | | | [place], [place] | | | | | | [address] | | | | | | [phone] | | | +--------+ + + + [...] as of this encounter Progress Notes Interface, Data Entry Email Processor In - 01/22/2007 3:04 AM PST CLINIC DATE: 06/07/97 NEUROLOGY CLINIC HISTORY OF PRESENT ILLNESS: Mr. Andujar is a 56 year-old male who is being evaluated in the Clinic for problems with balance and tremulousness of both upper extremities. He has been referred to this Clinic by Dr. Valles from [place], [place], and has also previously undergone extensive evaluations in the Neurosurgical Clinic and at Vascular Surgery at [facility]. His most recent hospitalization to [facility] was December 28, 1996, when he [...] evaluation in the Pain Management Clinic at [facility] and previous trials of Neurontin and mexiletine hydrochloride apparently appears to have been unsuccessful. Shortly following his December hospitalization at [facility], Mr. Andujar apparently became comatose in January from an accidental overdose of Darvon for which he was admitted to [facility] in [place], [place]. The details pertaining to this hospitalization are currently not available but as per Mr. Andujar, he was in a coma for a six day period and upon recovery noted tremulousness of both upper extremities, worse on his left than on his right. 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 Since his discharge from [facility], however, he has been experiencing increasing problems with balance and apparently has fallen on several occasions. The head CT-scan that was done at [facility], dated February 07, 1997, reveals a low attenuation area in the left anterior basal ganglia felt to represent a small lacunar infarct, with no other significant abnormality. Mr. Andujar states that during the course of his hospitalization at [facility] he apparently fell on three occasions sustaining occipital head trauma but did not undergo subsequent brain imaging studies. His stay at [facility] lasted two weeks. By his report, he [...] Mr. Andujar specifically denies impairment of hand warp dyeing tender, impaired strength in either upper extremity or [...] currently lives in a Foster Home in [place], [place]. 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 He currently smokes one-half [id number] since age 23. Denies current alcohol use [...] in turn led to his hospitalization at [facility] in January 1997 for coma at which [...] procedures for pain relief. Michelle Landon M.D. Supervisor Waterproofing, Neurology GN:fermin C: 06/28/97 cc: RUBIA VALLES MD [address] [facility] [address] Alina Moise M.D. Professor and Case Management Rn, Division of Neurosurgery Robert Carlson M.D. Professor, Vascular Surgery documented in this encounter Plan of Treatment Not on filedocumented as of this encounter Visit Diagnoses Not on filedocumented in this encounter"
--- OUTSIDE RECORDS SUMMARY | ~2019-11-18 | XMS | Encounter Summary ---
Demographics + + + | Address | [address] | | | [place] [address] | + + + | Home Phone | | + + + | Preferred Language | Unknown | + + + | Marital Status | Single | + + + | Anglican Affiliation | PRO | + + + [...] [place] | | | | | [address] | | + + + + + Care Team Providers + +------+ + | Care Copy Messenger Name | Role | Phone | + [...] [id number] | | | | | | [place], [place] | | | | | | [address] | | | | | | [phone] | | | +--------+ + + + [...] | + + + + + | [facility] | [address] | [place] [address] | | | PATHOLOGY | [address] [...] | + + + + + | [facility] | [address] | [place] [address] | | | PATHOLOGY | [address] | | | + + + + + documented in this encounter Visit Diagnoses Not on filedocumented in this encounter"
--- OUTSIDE RECORDS SUMMARY | ~2019-11-18 | XMS | Encounter Summary ---
Demographics + + + | Address | [address] | | | [place] [address] | + + + | Home Phone [...] Team Providers + +------+ + | Care Mental Health Unit Lead Psychologist Name | Role | Phone | + [...] + + | 09/17/ | Documentati | [facility] | Oly Alvarenga | Labs Only ([facility] | | 2019 | on | NEPRHOLOGY [place]AM[place] | V, Medical | 08/24/19) | | | | [address] | Chairman Ceo | | | | | [address] [place], [place] | | | | | | [address] | | | | | | [phone] | | | +--------+ + + + [...] 2020 | Visit | | [address] [facility] | | | | | | 160 [place], [place] | | | | | | [address] | | | | | | | [...] + + | REFERENCE LAB | [address] [facility] | [place] [address] | [phone] | | [facility] | | | | + + + + + | REFERENCE LAB | [address] [place] [address] | [place] [address] | [phone] | | [facility] | | | | + + + + + documented in this encounter Visit Diagnoses Not on filedocumented in this encounter"
--- OUTSIDE RECORDS SUMMARY | ~2019-11-18 | XMS | Encounter Summary ---
Demographics + + + | Address | [address] | | | [place] [address] | + + + | Home Phone [...] Providers + +------+ + | Care Operating System Designer Name | Role | Phone | + +------+ + | Rahul Silva MD | PCP | | + +------+ + Encounter Details +--------+ + + + + | Date | Type | Department | Care Team | Description | +--------+ + + + + | 12/19/ | Orders Only | [facility] | Conversion | | | 2016 | | NEPHROLOGY [place]NIE | Transaction, | | | | | [address] | Provider Unknown | | | | | [address] [place] [address] | | | | | | [address] | (Fax) | | | | | [phone] | | | +--------+ + + + [...] | | | | | | [address] [facility] | | | | | | [address] | | | | | | | [...]
--- OUTSIDE RECORDS SUMMARY | ~2019-11-18 | XMS | Encounter Summary ---
Demographics + + + | Address | [address] | | | [place] [address] | + + + | Home Phone [...] [place] | | | | | [address] | | + + + + + Care Team Providers + +------+ + | Care Help Desk Technician Name | Role | Phone | [...] as of this encounter Progress Notes Interface, Stave Cutting Supervisor In - 11/10/2006 2:27 AM PSTCLINIC DATE: [...] would like Mr. Andujar to see Dr. Neslon Melara before I saw Mr. Andujar. Unfortunately, [...] he embarked on this. Galo Arora M.D. Trimming Machine Operator, Plastic and Reconstructive Surgery [id number] / [id number] / [id number] / [id number] cc: Nelson Melara M.D. Anesthesiology. [facility]. [id number] signed by Interface, Stave Cutting Supervisor In at 11/10/2006 2:27 AM PSTdocume nted in this encounter Plan of Treatment Not on filedocumented as of this encounter Visit Diagnoses Not on filedocumented in this encounter"
--- OUTSIDE RECORDS SUMMARY | ~2019-11-18 | XMS | Encounter Summary ---
Demographics + + + | Address | [address] | | | [place] [address] | + + + | Home Phone [...] Team Providers + +------+ + | Care Tub Washer Name | Role | Phone | + +------+ + | Rahul Silva MD | PCP | | + +------+ + Encounter Details +--------+ + + + + | Date | Type | Department | Care Team | Description | +--------+ + + + + | 10/03/ | Orders Only | [facility] | Conversion | | | 2015 | | NEPRHOLOGY [place] | Transaction, | | | | | [address] | Provider Unknown | | | | | [address] [place], [place] | [phone] | | | | | [address] | (Fax) | | | | | [phone] | | | +--------+ + + + [...] Visit | | [address] [facility] | | | | | | [address] [facility] | | | | | | [address] | | | | | | | | +--------+---------+ + + + documented as of this encounter Procedures + +--------+ + + + | Procedure Name | Priori | Date/Time | Associated Diagnosis | Comments | | | ty | | | | + +--------+ + + + | RENAL FUNCTION PANEL | Routin | 10/03/2016 | | Results for this | | | e | 12:00 AM | | procedure are in the | | | | PDT | | results section. | + +--------+ + + + documented in this encounter Results Renal Function Panel (10/03/2016 12:00 AM PDT) + + + + + + | Component | Value | Ref Range | Performed | Pathologist | | | | | At | Signature | + + + + + + | Glucose, | 167 (A) | 70 - 100 mg/dL | EXTERNAL | | | Fasting | | | LAB | | + + + + + + | BUN | 36 (A) | 6 - 23 mg/dL | EXTERNAL | | | | | | LAB | | + + + + + + | Creatinine | 2.05 (A) | 0.70 - 1.18 | EXTERNAL [...] | 4.8 | 3.6 - 5.1 | EXTERNAL | [...] | BUN/Creatin | 17.6 | 6.0 - 28.5 | EXTERNAL | | | ine Ratio | | | LAB | | + + + + + + | Calcium | 8.7 | 8.4 - 10.2 | EXTERNAL | | | | | mg/dL | LAB | | + + + + + + | Estimated | 32 (A) | 60 mg/dL | EXTERNAL | [...]
--- OUTSIDE RECORDS SUMMARY | ~2019-11-18 | XMS | Encounter Summary ---
Demographics + + + | Address | [address] | | | [place] [address] | + + + | Home Phone | | + + + | Preferred Language | Unknown | + + + | Marital Status | | + + + | Restoration Affiliation | 1077 | + + + | Race | Unknown | + + + | Ethnic Group | Unknown | + + + Author + + + | Author | [facility] | | | and [place] | + + + | Organization | [facility] | | | and [...] Team Providers + +------+ + | Care Enterprise Sales Executive Name | Role | Phone | + +------+ + | Rahul Silva MD | PCP | | + +------+ + Encounter Details +--------+ + + + + | Date | Type | Department | Care Team | Description | +--------+ + + + + | 07/18/ | Orders Only | [facility] | Conversion | | | 2015 | | NEPHROLOGY [place] | Transaction, | | | | | [address] | Provider Unknown | | | | | [place] | [phone] | | | | | [address] | | | | | | [phone] | | | +--------+ + + + [...] 2020 | Visit | | [address] [facility] | | | | | | [address] [place], [place] | | | | | | [address] | | | | | | | [...] - 1.030 | EXTERNAL | | | [place] | | | LAB | | + [...] | | | LAB | | | [place] | | | | | + + [...]
--- OUTSIDE RECORDS SUMMARY | ~2019-11-18 | XMS | Encounter Summary ---
Demographics + + + | Address | [address] | | | [place] [address] | + + + | Home Phone [...] Team Providers + +------+ + | Care Digital Media Designer Name | Role | Phone | [...] + + | 07/30/ | Telephone | [facility] | Brian Orosco MD | Establish Care | | 2019 | | VASCULAR SURGERY | [address] | (Referral) | | | | [address] [place] | [place], [place] | | | | | [place], [place] | [address] | | | | | [address] | [phone] | | | | | [phone] | | | +--------+ + + + [...] | | | | | | [address] [place], [place] | | | | | | [address] | | | | | | | | +--------+---------+ + + + documented as of this encounter Visit Diagnoses Not on filedocumented in this encounter"
--- OUTSIDE RECORDS SUMMARY | ~2019-11-18 | XMS | Encounter Summary ---
Demographics + + + | Address | [address] | | | [place] [address] | + + + | Home Phone [...] Team Providers + +------+ + | Care Social Sciences Research Scientist Name | Role | Phone | + [...] + + | 08/25/ | Telephone | [facility] | Brian Orosco MD | New Patient (08/26 | | 2019 | | VASCULAR SURGERY | [address] | appointment) | | | | [address] [place] | [place], [place] | | | | | [place], [place] | [address] | | | | | [address] | [phone] | | | | | [phone] | | | +--------+ + + + [...] Visit | | [address] [facility] | | | | | | [address] [place] | | | | | | [address] | | | | | | | | +--------+---------+ + + + documented as of this encounter Visit Diagnoses Not on filedocumented in this encounter"
--- OUTSIDE RECORDS SUMMARY | ~2019-11-18 | XMS | Encounter Summary ---
Demographics + + + | Address | [address] | | | [place] [address] | + + + | Home Phone [...] Providers + +------+ + | Care Brick Stacker Name | Role | Phone | + +------+ + | Rahul Silva MD | PCP | | + +------+ + Encounter Details +--------+ + + + + | Date | Type | Department | Care Team | Description | +--------+ + + + + | 08/13/ | Orders Only | [facility] | Conversion | | | 2016 | | NEPHROLOGY [place] | Transaction, | | | | | [address] | Provider Unknown | | | | | [address] [place] | | | | | | [address] | (Fax) | | | | | [phone] | | | +--------+ + + + [...] | | | | [address] [facility] | | | | | | [address] | | | | | | | [...]
--- OUTSIDE RECORDS SUMMARY | ~2019-11-18 | XMS | Encounter Summary ---
Demographics + + + | Address | [address] | | | [place] [address] | + + + | Home Phone [...] Team Providers + +------+ + | Care Triage Rn Name | Role | Phone | + +------+ + | Rahul Silva MD | PCP | | + +------+ + Encounter Details +--------+ + + + + | Date | Type | Department | Care Team | Description | +--------+ + + + + | 02/12/ | Orders Only | [facility] | Conversion | | | 2018 | | NEPHROLOGY CON[place]IE | Transaction, | | | | | [address] | Provider Unknown | | | | | [address] [place] | | | | | | [address] | (Fax) | | | | | [phone] | | | +--------+ + + + [...] | | | | | | [address] [facility] | | | | | | [address] | | | | | | | [...]
--- OUTSIDE RECORDS SUMMARY | ~2019-11-18 | XMS | Encounter Summary ---
Demographics + + + | Address | [address] | | | [place] [address] | + + + | Home Phone [...] Providers + +------+ + | Care Office Nurse Name | Role | Phone | + +------+ + | Rahul Silva MD | PCP | | + +------+ + Encounter Details +--------+ + + + + | Date | Type | Department | Care Team | Description | +--------+ + + + + | 07/14/ | Orders Only | [facility] | Conversion | | | 2018 | | NEPRHOLOGY [place] | Transaction, | | | | | [address] | Provider Unknown | | | | | [address] [place], [place] | [phone] | | | | | [address] | (Fax) | | | | | [phone] | | | +--------+ + + + [...] | | | | | | [address] [place] | | | | | | [address] | | | | | | | [...] +---------+ + + + | LDL | 54 | mg/dL | EXTERNAL | [...]
--- OUTSIDE RECORDS SUMMARY | ~2019-11-18 | XMS | Encounter Summary ---
Demographics + + + | Address | [address] | | | [place] [address] | + + + | Home Phone [...] [place] | | | | | [address] | | + + + + + Care Team Providers + +------+ + | Care Metal Baler Name | Role | Phone | + +------+ + PCP | Unavailable | + +------+ + Encounter Details +--------+ + + + + | Date | Type | Department | Care Team | Description | +--------+ + + + + | 12/22/ | Results | | Other, Faculty | | | 1997 | Only | | [phone] | | +--------+ + + + + [...] | | | | | | 12/22/96 [id number] hours. | | | | | | [...] | + +---------+ + + | [facility] | | | | | [...] | | | | | | | [id number] | | | | | | SPINE, [...] | + +---------+ + + | [facility] | | | | | RADIOLOGY | | | | + +---------+ + + documented in this encounter Visit Diagnoses Not on filedocumented in this encounter"
--- OUTSIDE RECORDS SUMMARY | ~2019-11-18 | XMS | Encounter Summary ---
Demographics + + + | Address | [address] | | | [place] [address] | + + + | Home Phone [...] Providers + +------+ + | Care Business Solutions Analyst Name | Role | Phone | [...] [address] | | | | | [place], [place] | [place], [place] | | | | | [address] | [address] | | | | | [phone] | [phone] | | | | | | | [...] Visit | | [address] [facility] | | | | | | [address] [facility] | | | | | | [address] | | | | | | | [...]
--- OUTSIDE RECORDS SUMMARY | ~2019-11-18 | XMS | Encounter Summary ---
Demographics + + + | Address | [address] | | | [place] [address] | + + + | Home Phone [...] Providers + +------+ + | Care Child Care Attendant School Name | Role | Phone | + [...] [place] | | | | | | [address] | (Fax) | | | | | [phone] | | | +--------+ + + + [...] HOSPITAL[facility] | | | | | | [address] | | | | | | | [...] - 1.030 | EXTERNAL | | | [place] | | | LAB | | + [...] | | | LAB | | | [place] | | | | | + + [...]
--- OUTSIDE RECORDS SUMMARY | ~2019-11-18 | XMS | Encounter Summary ---
Demographics + + + | Address | [address] | | | [place] [address] | + + + | Home Phone [...] Team Providers + +------+ + | Care Foundry Worker General Name | Role | Phone | + +------+ + | Rahul Silva MD | PCP | | + +------+ + Encounter Details +--------+ + + + + | Date | Type | Department | Care Team | Description | +--------+ + + + + | 06/15/ | Orders Only | [facility] | Conversion | | | 2019 | | NEPHROLOGY CONNIE | Transaction, | | | | | [address] | Provider Unknown | | | | | [address] [place] | | | | | | [address] | (Fax) | | | | | [phone] | | | +--------+ + + + [...] | Visit | | [address] [facility] [address] | | | | | | [address] [place] | | | | | | [address] | | | | | | | [...]
--- OUTSIDE RECORDS SUMMARY | ~2019-11-18 | XMS | Encounter Summary ---
Demographics + + + | Address | [address] | | | [place] [address] | + + + | Home Phone [...] Team Providers + +------+ + | Care Lacquer Machine Feeder Name | Role | Phone | + [...] [address] | | | | | [place], [place] | [place], [place] | | | | | [address] | [address] | | | | | [phone] | [phone] | | | | | | | [...] 2020 | Visit | | [address] [facility] | | | | | | [address] [facility] | | | | | | [address] | | | | | | | [...]
--- OUTSIDE RECORDS SUMMARY | ~2019-11-18 | XMS | Encounter Summary ---
Demographics + + + | Address | [address] | | | [place] [address] | + + + | Home Phone [...] Team Providers + +------+ + | Care Radio Tester Name | Role | Phone | + +------+ + | Rahul Silva MD | PCP | | + +------+ + Encounter Details +--------+ + + + + | Date | Type | Department | Care Team | Description | +--------+ + + + + | 10/28/ | Orders Only | [facility] | Conversion | | | 2016 | | NEPHROLOGY CONNIE | Transaction, | | | | | [address] | Provider Unknown | | | | | [address] [place] | | | | | | [address] | (Fax) | | | | | [phone] | | | +--------+ + + + [...] | | | | [address] [facility] | | | | | | [address] [...]
--- OUTSIDE RECORDS SUMMARY | ~2019-11-18 | XMS | Encounter Summary ---
Demographics + + + | Address | [address] | | | [place] [address] | + + + | Home Phone [...] Team Providers + +------+ + | Care Fire Equipment Inspector Name | Role | Phone | + +------+ + | Rahul Silva MD | PCP | | + +------+ + Encounter Details +--------+ + + + + | Date | Type | Department | Care Team | Description | +--------+ + + + + | 07/30/ | Orders Only | [facility] | Conversion | | | 2016 | | NEPRHOLOGY PAIGE | Transaction, | | | | | [address] | Provider Unknown | | | | | [address] [place], [place] | [phone] | | | | | [address] | (Fax) | | | | | [phone] | | | +--------+ + + + [...] | | | | | | [address] [facility] | | | | | | [address] | | | | | | | [...]
--- OUTSIDE RECORDS SUMMARY | ~2019-11-18 | XMS | Encounter Summary ---
Demographics + + + | Address | [address] | | | [place] [address] | + + + | Home Phone | | + + + | Preferred Language | Unknown | + + + | Marital Status | Single | + + + | Sikh Affiliation | PRO | + + + [...] [place] | | | | | [address] | | + + + + + Care Team Providers + +------+ + | Care Locker Attendant Name | Role | Phone | [...] | | | | | | [facility] | | | | | | [place] [address] | | | | | | [phone] | | | +--------+ + + + [...] as of this encounter Progress Notes Interface, Job Recruiter In - 02/17/2007 3:02 AM PDT [address] [address] or August 05, 1996 RUBIA VALLES MD [address] [facility] [address] RE:PORFIRIO ZAVALA MR#:[id number] Valles: Mr. Porfirio Zavala returned to the [facility] Neurosurgery [facility] today for a followup visit. 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 Mr. Zavala has failed numerous femoral nerve blocks, sciatic nerve blocks, and spinal cord blocks, and was at one time enrolled in the [facility] Pain Clinic. Mr. Zavala's pain is [...] dictating for: Alina Moise M.D. Professor and Garment Form Assembler, Division of Neurosurgery MARYANA/sajan cc: Seven Khan, Ph.D. Clinical Psychologist-Neuropsychologist documented in this encounter Plan of Treatment Not on filedocumented as of this encounter Visit Diagnoses Not on filedocumented in this encounter"
--- OUTSIDE RECORDS SUMMARY | ~2019-11-18 | XMS | Encounter Summary ---
Demographics + + + | Address | [address] | | | [place] [address] | + + + | Home Phone [...] Team Providers + +------+ + | Care Export Freight Clerk Name | Role | Phone | [...] POPLAR | (cancellation) | | | | [place], | [place], [place] | | | | | [place] [address] | [address] | | | | | [phone] | | | +--------+ + + + [...] 2020 | Visit | | [address] [facility] | | | | | | [address] [place] | | | | | | [address] | | | | | | | | +--------+---------+ + + + documented as of this encounter Visit Diagnoses Not on filedocumented in this encounter"
--- OUTSIDE RECORDS SUMMARY | ~2019-11-18 | XMS | Encounter Summary ---
Demographics + + + | Address | [address] | | | [place] [address] | + + + | Home Phone [...] Team Providers + +------+ + | Care Well Head Pumper Name | Role | Phone | + +------+ + | Rahul Silva MD | PCP | | + +------+ + Encounter Details +--------+ + + + + | Date | Type | Department | Care Team | Description | +--------+ + + + + | 10/03/ | Orders Only | [facility] | Conversion | | | 2015 | | NEPRHOLOGY PAIG[place] | Transaction, | | | | | [address] | Provider Unknown | | | | | [address] [place], [place] | [phone] | | | | | [address] | (Fax) | | | | | [phone] | | | +--------+ + + + [...] Visit | | [address] [facility] | | | | | | [address] [facility] | | | | | | [address] | | | | | | | [...] | | | LAB | | | [place] | | | | | + + [...]
--- OUTSIDE RECORDS SUMMARY | ~2019-11-18 | XMS | Encounter Summary ---
Demographics + + + | Address | [address] | | | [place] [address] | + + + | Home Phone [...] Team Providers + +------+ + | Care Cream Separator Operator Name | Role | Phone | + +------+ + PCP | Unavailable | + +------+ + Encounter Details +--------+ + + + + | Date | Type | Department | Care Team | Description | +--------+ + + + + | 05/22/ | [facility] | [facility] | Nelson Lutz MD | | | 1998 | Encounter | MED CTR GENERIC OP | [address], [place] | | | | | CONV DEPT [address] | [address] [place] | | | | | [place], | [address] | | | | | [place] [address] | | | | | | [phone] | | | +--------+ + + + [...] | | | | | | [address] [place] | | | | | | [address] | | | | | | | | +--------+---------+ + + + documented as of this encounter Visit Diagnoses Not on filedocumented in this encounter"
--- OUTSIDE RECORDS SUMMARY | ~2019-11-18 | XMS | Encounter Summary ---
Demographics + + + | Address | [address] | | | [place] [address] | + + + | Home Phone [...] Team Providers + +------+ + | Care Knotting Machine Operator Portable Name | Role | Phone | + [...] + + | 10/20/ | Telephone | [facility] | Alfred, | Mary (Tera F/U) | | 2018 | | NEPHROLOGY [place] | [facility] | | | | | [address] | Computer Engineering Technician | | | | | [address] | | | | | | [place] | | | | | | [address] | | | | | | [phone] | | | +--------+ + + + [...] | | | | [address] [facility] [place] | | | | | | [address] | | | | | | | | +--------+---------+ + + + documented as of this encounter Visit Diagnoses Not on filedocumented in this encounter"
--- OUTSIDE RECORDS SUMMARY | ~2019-11-18 | XMS | Encounter Summary ---
Demographics + + + | Address | [address] | | | [place] [address] | + + + | Home Phone [...] Team Providers + +------+ + | Care Alto Singer Name | Role | Phone | + [...] | | | ([facility]) | | | [...] + + | 09/10/ | Surgery | [facility] | Brian Orosco MD | INSERTION AV FISTULA | | 2019 | [facility] | [address] | (Right BBF) | | | | OPERATING ROOM [address] | [place], [place] | | | | | [place] | [address] | | | | | [place], [place] | [phone] | | | | | [address] | | | | | | [phone] | | | +--------+---------+ + + + [...] shunt, please contact your ph ysician at [phone]. Discharge instructions for Diagnostic Imaging sedation patients [...] in a reclining position for the ri me home, or have an adult in the [...] Anexsia, Lorcet, Lorcet HD, Lorcet Plus, Lortab, [place], Verdrocet, Vicodin, Vi codin ES, Vicodin HP, [...] information carefully each time. Talk to your director of home economics regarding the use of this medicine in children. Special care may be needed. What side effects may I notice from receiving this medicine? Side effects that you should report to your doctor or health lawn care technician as soon as p ossible: allergic reactions [...] to your doctor or health lawn care technician if they continue or are bothersome): constipation [...] to an official disposal site. Contact the [facility] at [phone] or your [facility] to find a [...] Tell your doctor or health lawn care technician if your pain does not go away, [...] cuts, scrapes, or blows. Date Last Reviewed: 12/01/201619997354-9712 The [employer]. [address] [place] [address], [place] [id number]. All righ ts reserved. This information is [...] | | | | ([facility]), Secondary | | | | | | | hyperparathyroidism | | | | | | | ([facility]) | | | [...] and bl ood clots prevention. Prescription for [place] given and side effects were explained. Patient states that he also takes oxycodone at home; patient and his family were educated about taki ng oxycodone or [place] only and not both. OTC Tylenol intake [...] Visit | | [address] [facility] | | | | | | [address] [place], [place] | | | | | | [address] | | | | | | | [...] | | than 15 ml/min ([facility]) | | + +--------+ + + + [...] Testing | 65 - 99 mg/dL | [facility] | | | POC | performed at [facility];[address] | | LABORATORY | | | | [address];[place], [place] | | | | | | [address] | | | | + + + + + + + + | Specimen | + + | | + + + + + + + | Performing | Address | City/State/Zipcode | Phone Number | | Organization | | | | + + + + + | [facility] | [address] | [place] [address] | [phone] | + + + + + POC [...] | | | POC | performed at [facility];[address] | | LABORATORY | | | | [address];[place] | | | | | | [address] | | | | + + + + + + + + | Specimen | + + | | + + + + + + + | Performing | Address | City/State/Zipcode | Phone Number | | Organization | | | | + + + + + | [facility] | [address] | [place] [address] | [phone] | + + + + + documented in this encounter Visit Diagnoses + + | Diagnosis | + + | CKD (chronic kidney disease) stage 5, GFR less than 15 ml/min ([facility]) Chronic kidney | | disease, Stage V | + + documented in this encounter Admitting Diagnoses + + | Diagnosis | + + | CKD (chronic kidney disease) stage 5, GFR less than 15 ml/min ([facility]) Chronic kidney | | disease, Stage [...] One week or | | | longer, jvzesn-scq-dwnqp use of | | | at least [...]
--- OUTSIDE RECORDS SUMMARY | ~2019-11-18 | XMS | Encounter Summary ---
Demographics + + + | Address | [address] | | | [place] [address] | + + + | Home Phone | | + + + | Preferred Language | Unknown | + + + | Marital Status | Single | + + + | Oriental Orthodox Affiliation | PRO | + + [...] [place] | | | | | [address] | | + + + + + Care Team Providers + +------+ + | Care Baby Doctor Name | Role | Phone | + +------+ + PCP | Unavailable | + +------+ + Encounter Details +--------+ + + + + | Date | Type | Department | Care Team | Description | +--------+ + + + + | 12/28/ | Procedure - | Digestive Health | Record, Operation | Operative Report | | 1996 | | [facility] | | | | | Transcribed | Ruben Linares | | | | | | Mailcode: Viola | | | | | | [facility] | | | | | | Healing, [address] | | | | | | [facility] [place] | | | | | | [address] | | | | | | [phone] | | | +--------+ + + + [...] | + + | 12/28/1996 12:00 AM [facility] | | [facility] | | [address] [place], [place] [address] | | [facility] | | | | OPERATION RECORD | | | | Med Rec No.: [id number] Date: 12/28/96 | | | | Name: Mehran Andujarald Arturo | | | | | | ATTENDING SURGEON: Robert Carlson M.D. | | Professor, | | Vascular Surgery | | | | ELECTRIC REFRIGERATOR SERVICER(S): Nick Noriega M.D. | | Public Relations Professional, General Surgery | | | | POSTOPERATIVE DIAGNOSIS(ES): Left stump osteophyte. | | | | OPERATION(S) PERFORMED: Revision of left fstbk-oey-cikf amputation | | and excision of stump osteophyte. | | | | SPECIMEN(S) REMOVED: 1. Swab of pseudocapsule for culture. | | 2. Osteophyte to Pathology. | | | | ANESTHESIA: General endotracheal anesthesia. 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 He has developed pain over the stump. A recent CT scan showed | | an osteophyte growing on the end of the stump. | | | | PROCEDURE: The patient was taken to the Operating Room. | | General endotracheal anesthesia was | | performed by Anesthesia. The | | left jbheb-joo-vuaj amputation stump was sterilely prepped and draped [...] | | Nick Noriega M.D. | | Public Relations Professional, General Surgery | | Robert Carlson M.D. | | Professor, | | Vascular Surgery | | | | DOMINIC/jc | | | | A | | | | cc: | | | + + documented in this encounter Visit Diagnoses Not on filedocumented in this encounter"
--- OUTSIDE RECORDS SUMMARY | ~2019-11-18 | XMS | Encounter Summary ---
Demographics + + + | Address | [address] | | | [place] [address] | + + + | Home Phone [...] Team Providers + +------+ + | Care Conductor Pullman Name | Role | Phone | + [...] | on | NEPHROLOGY [place] | [facility] | | | | | [address] | Electrical Instrument Repairer | | | | | [address] | | | | | | [place] | | | | | | [address] | | | | | | [phone] | | | +--------+ + + + [...] [place] | | | | | | [address] | | | | | | (Fax) [...]
--- OUTSIDE RECORDS SUMMARY | ~2019-11-18 | XMS | Encounter Summary ---
Demographics + + + | Address | [address] | | | [place] [address] | + + + | Home Phone | | + + + | Preferred Language | Unknown | + + + | Marital Status | Single | + + + | Catholic Affiliation | PRO | + + [...] [place] | | | | | [address] | | + + + + + Care Team Providers + +------+ + | Care Hemodialysis Lab Technician Name | Role | Phone | [...] [id number] | | | | | | [place], [place] | | | | | | [address] | | | | | | [phone] | | | +--------+ + + + [...] | + + + + + | [facility] | [address] | [place] [address] | | | PATHOLOGY | [address] [...] | + + + + + | [facility] | [address] | [place] [address] | | | PATHOLOGY | [address] | | | + + + + + documented in this encounter Visit Diagnoses Not on filedocumented in this encounter"
--- OUTSIDE RECORDS SUMMARY | ~2019-11-18 | XMS | Encounter Summary ---
Demographics + + + | Address | [address] | | | [place] [address] | + + + | Home Phone [...] Team Providers + +------+ + | Care Finish Photographer Name | Role | Phone | + +------+ + | Rahul Silva MD | PCP | | + +------+ + Encounter Details +--------+ + + + + | Date | Type | Department | Care Team | Description | +--------+ + + + + | 09/07/ | Orders Only | [facility] | Farrukh Acuna MD | | | 2018 | | NEPRHOLOGY [place] | [address] | | | | | [address] | [address] [place], [place] | | | | | [address] [place], [place] | [address] | | | | | [address] | | | | | | [phone] | | | +--------+ + + + [...] [place] | | | | | | [address] | | | | | | | [...]
--- OUTSIDE RECORDS SUMMARY | ~2019-11-18 | XMS | Encounter Summary ---
Demographics + + + | Address | [address] | | | [place] [address] | + + + | Home Phone [...] Team Providers + +------+ + | Care Micro Photographer Name | Role | Phone | + +------+ + | Rahul Silva MD | PCP | | + +------+ + Encounter Details +--------+ + + + + | Date | Type | Department | Care Team | Description | +--------+ + + + + | 07/27/ | Orders Only | [facility] | Farrukh Acuna MD | Chronic kidney | | 2019 | | NEPHROLOGY [place] | [address] | disease, stage IV | | | | [address] | [address] [place], [place] | (severe) (HCC); | | | | [address] [place], [place] | [address] | Chronic kidney | | | | [address] | | disease, stage IV | | | | [phone] | | (severe) (HCC); | | | [...] [place] | | | | | | [address] | | | | | | | [...]
--- OUTSIDE RECORDS SUMMARY | ~2019-11-18 | XMS | Encounter Summary ---
Demographics + + + | Address | [address] | | | [place] [address] | + + + | Home Phone [...] Team Providers + +------+ + | Care Cone Winder Name | Role | Phone | + +------+ + | Rahul Silva MD | PCP | | + +------+ + Encounter Details +--------+ + + + + | Date | Type | Department | Care Team | Description | +--------+ + + + + | 09/18/ | Orders Only | [facility] | Conversion | | | 2018 | | NEPHROLOGY [place] | Transaction, | | | | | [address] | Provider Unknown | | | | | [address] [place] | | | | | | [address] | (Fax) | | | | | [phone] | | | +--------+ + + + [...] | | | | | [address] [facility] | | | | | | [address] | | | | | | | [...]
--- OUTSIDE RECORDS SUMMARY | ~2019-11-18 | XMS | Clinical Summary ---
Demographics + + + | Address | [address] | | | [place] [address] | + + + | Home Phone [...] Team Providers + +------+ + | Care Call Center Operations Manager Name | Role | Phone | [...] | | | | | | | ([facility]), Secondary | | | | | | | | hyperparathyroidism | | | | | | | | ([facility]) | | | | | [...] | | | | | | | ([facility]) | | | | | | | + + + +---------+------+------+-------+ Active Problems + + + | Problem | Noted Date | + + + | CKD (chronic kidney disease) stage 5, GFR less than 15 ml/min | 08/26/2019 | + + + + + | Overview: Added automatically from request for surgery | | [id number] | + + + + + | [...] & Plan: Controlled on current | | cyxpbuvyzh89 yr old male with COPD, current heavy [...] + + | 11/17/ | Telephone | Nephrology | Farrukh Acuna MD | | | 2019 | | | | | +--------+ + + + + | 11/12/ | Documentati | Nephrology | Alfred | Results (11/10/19) | | 2019 | on | | Charlie Abdi | | | | | | Power Regulator | | +--------+ + + + + | 11/08/ | Documentati | Nephrology | Simon, | Results (10/10/19) | | 2019 | on | | Charlie Abdi | | | | | | Power Regulator | | +--------+ + + + + | 10/20/ | Hospital | Radiology | Trisha Conner DNP | CKD (chronic kidney | | 2019 | Encounter | | | disease) stage 5, | | | | | | GFR less than 15 | | | | | | ml/min ([facility]) | +--------+ + + + + | 10/20/ | Office | Vascular Surgery | Trisha Conner DNP | CKD (chronic kidney | | 2019 | Visit | | | disease) stage 5, | | | | | | GFR less than 15 | | | | | | ml/min ([facility]) | | | | | | (Primary Dx); AVF | | | | | | (arteriovenous | | | | | | fistula) ([facility]) | +--------+ + + + + | 10/20/ | Telephone | Nephrology | Alfred | Mary (Tera F/U) | | 2019 | | | Charlie Abdi | | | | | | Power Regulator | | +--------+ + + + + | 10/19/ | Documentati | Nephrology | Alfred | Results (09/22/19) | | 2019 | on | | Charlie Abdi | | | | | | Power Regulator | | +--------+ + + + + [...] hyperparathyroidism | | | | | | ([facility]); CKD (chronic | | | | | | kidney disease) | | | | | | stage 5, GFR less | | | | | | than 15 ml/min ([facility]) | +--------+ + + + + | 10/04/ | Office | Nephrology | Farrukh Acuna MD | CKD (chronic kidney | | 2019 | Visit | | | disease) stage 5, | | | | | | GFR less than 15 | | | | | | ml/min ([facility]) | | | | | | (Primary Dx); Anemia | | | | | | of chronic kidney | | | | | | failure, stage 5 | | | | | | ([facility]); Essential | | | | | | hypertension; Iron | | | | | | deficiency; | | | | | | Secondary | | | | | | hyperparathyroidism | | | | | | (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); Edema of | | | | | | lower extremity; | | | | | | Hypomagnesemia; | | | | | | Vitamin D deficiency | +--------+ + + + + | 10/04/ | Documentati | Nephrology | Alfred | Results (09/30/19) | | 2019 | on | | Charlie Abdi | | | | | | Power Regulator | | +--------+ + + + + | 10/01/ | Telephone | Nephrology | Farrukh Acuna MD | | | 2018 | | | | | +--------+ + + + + | 09/28/ | Telephone | Vascular Surgery | Sandy Gomez, | Appointment | | [...] | 2018 | on | | Charlie Barrett | 08/24/19) | | | | | Power Regulator | | +--------+ + + + + | 09/13/ | Telephone | Vascular Surgery | Terri Aguilar, | Follow-up | | 2018 | | | Magazine Journalist | | +--------+ + + + + | 09/10/ | Anesthesia | | Venkata Carroll | | | 2019 | Event | | CORNELL Grewal | | +--------+ + + + + | 09/10/ | Ancillary | | Brian Orosco MD | Canceled (OTHER) | | 2019 | Procedure | | | | +--------+ [...] | | | | | | ml/min ([facility]) | +--------+ + + + + | [...] | Alfred | Lab Results | | 2018 | | | Charlie Abdi | | | | | | Power Regulator | | +--------+ + + + + [...] | | | | | | ml/min ([facility]) | | | | | | (Primary [...] | Encounter | | | renal disease) ([facility]) | +--------+ + + + + from [...] 2020 | Visit | | [address] [facility] | | | | | | [facility] | | | | | | [address] | | | | | | | [...] | EXTERNAL LAB: ESA | Routin | 09/30/2019 | | Results [...] + + from Last 3 Months Results Basic Metabolic Panel (11/10/2019)Only the most recent of 4 results within [...] + + | Blood | + + VAS Hemodialysis Graft Fistula (10/20/2019 3:55 PM [...] Note | + + | Meir Jama In - 10/21/2019 8:21 AM PST | [...] + + | Performing | Address | City/State/[facility] | Phone Number | | Organization | | | | + +---------+ + + | [facility] | | | | + +---------+ + + CBC with Manual Differential (10/10/2019) + + + + + + | Component | Value | Ref Range | Performed | Pathologist | | | | | At | Signature | + + + + + + | WBC | 7.9 | 4.5 - 11.0 | | | + + + + + + | RBC | 2.85 (A) | 4.30 - 5.70 [...] + | Blood | + + Magnesium (10/10/2019)Only the most recent of 2 results within the time period is included. + +---------+ + + + | Component [...] LABS - EXTERNAL SCAN (09/30/2019 12:00 AM PDT) + + + | [...] Testing | 65 - 99 mg/dL | [facility] | | | POC | performed at [facility];[address] | | LABORATORY | | | | [address];[place] | | | | | | [address] | | | | + + + + + + + + | Specimen | + + | | + + + + + + + | Performing | Address | City/State/Zipcode | Phone Number | | Organization | | | | + + + + + | [facility] | [address] | [place] [address] | [phone] | + + + + + ECG [...] +--------+ +---------+--------+ | MEDICARE | MEDICA | [id number] | 07/01/20 | [phone] | | Medica | | | RE | | 05-Pre | 5 | | re | | | PART A | | sent | | | | | | AND B | | | | | | + +--------+ +--------+ +---------+--------+ | [employer] | MODA | [id number] | 07/04/20 | [phone] | | Medica | | MEDICAID HMO | HEALTH | | 19-Pre | 1 | | id | | | MDCD | | sent | | | | | | [place] | | | | | | + +--------+ +--------+ +---------+--------+ | MEDICAID [place] | MEDICA | [id number] | | [phone] | | Medica | [...] Person | Self | [birth year] | | | Arturo | irving/Scott | | 1940 | 54 | [place] | | | chula | | | 1 (Home) | [address] | + +--------+ +--------+ + + | Kavon Andujar | Person | Self | [birth year] | [birth year] | | Arturo | al/Fam | | 1940 | [id number] | [place] | | | [place]ula | | | 1 (Home) | [address] | + +--------+ +--------+ + + Advance Directives + + + + + | Type | Date Recorded | Patient | Explanation | | | | Contact Manager | | + + + + + | Power of | | | | | Physician Practice Manager | | | | + + + [...]
--- OUTSIDE RECORDS SUMMARY | ~2019-11-18 | XMS | Encounter Summary ---
Demographics + + + | Address | [address] | | | [place] [address] | + + + | Home Phone [...] Providers + +------+ + | Care Civil Engineer'S Aide Name | Role | Phone | + +------+ + | Rahul Silva MD | PCP | | + +------+ + Encounter Details +--------+ + + + + | Date | Type | Department | Care Team | Description | +--------+ + + + + | 10/10/ | Orders Only | [facility] | Farrukh Acuna MD | | | 2013 | | NEPHROLOGY [place] | [address] [place] | | | | | [address] | [address] [place], [place] | | | | | [address] [place], [place] | [address] | | | | | [address] | | | | | | [phone] | | | +--------+ + + + [...] 2019 | Visit | | [address] [facility] | | | | | | [address] [place] | | | | | | [address] | | | | | | | [...] | | | LAB | | | GAMBIAN | | | | | + + [...]
--- OUTSIDE RECORDS SUMMARY | ~2019-11-18 | XMS | Encounter Summary ---
Demographics + + + | Address | [address] | | | [place] [address] | + + + | Home Phone [...] Team Providers + +------+ + | Care Neonatal Nurse Name | Role | Phone | + +------+ + | Rahul Silva MD | PCP | | + +------+ + Encounter Details +--------+ + + + + | Date | Type | Department | Care Team | Description | +--------+ + + + + | 10/08/ | Orders Only | [facility] | Farrukh Acuna MD | | | 2018 | | NEPHROLOGY [place] | [address] [place] | | | | | [address] [place] | [address] [place], [place] | | | | | [address] [place], [place] | [address] | | | | | [address] | | | | | | [phone] | | | +--------+ + + + [...] 2020 | Visit | | [address] [facility] | | | | | | [address] [place] | | | | | | [address] | | | | | | | [...] | | | LAB | | | [place]AN | | | | | + + [...]
--- OUTSIDE RECORDS SUMMARY | ~2019-11-18 | XMS | Encounter Summary ---
Demographics + + + | Address | [address] | | | [place] [address] | + + + | Home Phone [...] Team Providers + +------+ + | Care Personal Banking Officer Name | Role | Phone | [...] [address] | | | | | [place], [place] | [place] [address] | | | | | [address] | | | | | | [phone] | (Fax) | | +--------+ + + [...] | | | | | | [address] [facility] [place] | | | | | | [address] | | | | | | | [...] pressures of 5-10mmHg. MEASUREMENTS | | | Wiener Packer: MARLENA Authenticated by: KAI BIRMINGHAM MD Report [...] venous pressures of 5-10mmHg. | | MEASUREMENTS Wiener Packer: DHAuthenticated by: KAI BIRMINGHAM [facility] | | Date/Time: 03-27-2016 13:39:46 IMPRESSION: 1. [...] | |MEASUREMENTS | | | | | |Wiener Packer: MARLENA | |Authenticated by: KAI BIRMINGHAM MD [...]
--- OUTSIDE RECORDS SUMMARY | ~2019-11-18 | XMS | Encounter Summary ---
Demographics + + + | Address | [address] | | | [place] [address] | + + + | Home Phone [...] Team Providers + +------+ + | Care Print Binding And Finishing Worker Name | Role | Phone | + +------+ + | Rahul Silva MD | PCP | | + +------+ + Encounter Details +--------+ + + + + | Date | Type | Department | Care Team | Description | +--------+ + + + + | 02/15/ | Orders Only | [facility] | Conversion | | | 2019 | | NEPHROLOGY [place] | Transaction, | | | | | [address] | Provider Unknown | | | | | [address] [place] | | | | | | [address] | (Fax) | | | | | [phone] | | | +--------+ + + + [...] | | | | | | [address] [facility] | | | | | | [address] | | | | | | | [...]
--- OUTSIDE RECORDS SUMMARY | ~2019-11-18 | XMS | Encounter Summary ---
Demographics + + + | Address | [address] | | | [place] [address] | + + + | Home Phone [...] Team Providers + +------+ + | Care Cytology Laboratory Manager Name | Role | Phone | [...] N Young | | | | | [place], [place] | [place], [place] | | | | | [address] | [address] | | | | | [phone] | [phone] | | | | | | | [...] 2020 | Visit | | [address] [facility] | | | | | | [address] [facility] | | | | | | [address] | | | | | | | [...]
--- OUTSIDE RECORDS SUMMARY | ~2019-11-18 | XMS | Encounter Summary ---
Demographics + + + | Address | [address] | | | [place] [address] | + + + | Home Phone [...] Providers + +------+ + | Care Rubber Thread Spooler Name | Role | Phone | + [...] (OTHER) | | 2019 | Procedure | [facility] | [address] | | | | | OPER[address] RO[address] | [place], [place] | | | | | [address] | [address] | | | | | [place], [place] | [phone] | | | | | [address] | | | | | | [phone] | | | +--------+ + + + [...] 2020 | Visit | | [address] [facility] | | | | | | 160 [place] | | | | | | [address] | | | | | | | | +--------+---------+ + + + documented as of this encounter Visit Diagnoses Not on filedocumented in this encounter"
--- OUTSIDE RECORDS SUMMARY | ~2019-11-18 | XMS | Encounter Summary ---
Demographics + + + | Address | [address] | | | [place] [address] | + + + | Home Phone [...] Providers + +------+ + | Care Neonatal Critical Care Nurse Name | Role | Phone | [...] N Young | | | | | [place], [place] | [place], [place] | | | | | [address] | [address] | | | | | [phone] | [phone] | | | | | | | [...] 2020 | Visit | | [address] [facility] | | | | | | 160 [facility] | | | | | | [address] | | | | | | | [...]
--- OUTSIDE RECORDS SUMMARY | ~2019-11-18 | XMS | Encounter Summary ---
Demographics + + + | Address | [address] | | | [place] [address] | + + + | Home Phone [...] Team Providers + +------+ + | Care Cigar Packing Examiner Name | Role | Phone | [...] + + | 08/10/ | Telephone | [facility] | Brian Orosco MD | Other (orders ) | | 2019 | | VASCULAR SURGERY | [address] | | | | | [address] [place] | [place], [place] | | | | | [place], [place] | [address] | | | | | [address] | [phone] | | | | | [phone] | | | +--------+ + + + [...] [place] | | | | | | [address] | | | | | | (Fax) | | +--------+---------+ + + + documented as of this encounter Visit Diagnoses Not on filedocumented in this encounter"
--- OUTSIDE RECORDS SUMMARY | ~2019-11-18 | XMS | Encounter Summary ---
Demographics + + + | Address | [address] | | | [place] [address] | + + + | Home Phone [...] Team Providers + +------+ + | Care Face Man Name | Role | Phone | [...] N Young | | | | | [place], [place] | [place], [place] | | | | | [address] | [address] | | | | | [phone] | [phone] | | | | | | | [...] HOSPITALRADHA | | | | | | [address] | | | | | | | [...]
--- OUTSIDE RECORDS SUMMARY | ~2019-11-18 | XMS | Encounter Summary ---
Demographics + + + | Address | [address] | | | [place] [address] | + + + | Home Phone [...] Providers + +------+ + | Care Certified Medical Asst Name | Role | Phone | + +------+ + | Rahul Silva MD | PCP | | + +------+ + Encounter Details +--------+ + + + + | Date | Type | Department | Care Team | Description | +--------+ + + + + | 08/31/ | Orders Only | [facility] | Farrukh Acuna MD | | | 2013 | | NEPHROLOGY [place] | [address] [place] | | | | | [address] [place] | [address] [place], [place] | | | | | [address] [place], [place] | [address] | | | | | [address] | | | | | | [phone] | | | +--------+ + + + [...] | | | | | | 160 [place] | | | | | | [address] | | | | | | | [...] | | | LAB | | | ESTONIAN | | | | | + + [...]
--- OUTSIDE RECORDS SUMMARY | ~2019-11-18 | XMS | Encounter Summary ---
Demographics + + + | Address | [address] | | | [place] [address] | + + + | Home Phone [...] Team Providers + +------+ + | Care Clinical Reviewer Name | Role | Phone | + [...] + + | 09/13/ | Telephone | [facility] | Terri Aguilar, | Follow-up | | 2018 | | VASCULAR SURGERY | Chemical Worker | | | | | [address] | | | | | | [facility] | | | | | | [address] | | | | | | [phone] | | | +--------+ + + + [...] | Visit | | [address] [facility] | | | | | | 160 [place] | | | | | | [address] | | | | | | | | +--------+---------+ + + + documented as of this encounter Visit Diagnoses Not on filedocumented in this encounter"
--- OUTSIDE RECORDS SUMMARY | ~2019-11-18 | XMS | Encounter Summary ---
Demographics + + + | Address | [address] | | | [place] [address] | + + + | Home Phone [...] Providers + +------+ + | Care Sales Consultant Residential Manager Name | Role | Phone | [...] | | | [address] [place], [place] | [address] | | | | | [address] | | | | | | [phone] | | | +--------+ + + + [...] 2020 | Visit | | [address] [facility] | | | | | | 160 [place] | | | | | | [address] | | | | | | | [...]
--- OUTSIDE RECORDS SUMMARY | ~2019-11-18 | XMS | Encounter Summary ---
Demographics + + + | Address | [address] | | | [place] [address] | + + + | Home Phone [...] Providers + +------+ + | Care Welfare Manager Name | Role | Phone | [...] N Young | | | | | [place], [place] | [place], [place] | | | | | [address] | [address] | | | | | [phone] | [phone] | | | | | | | [...] | Visit | | [address] [facility] | | | | | | 160 [facility] | | | | | | [address] | | | | | | | [...]
--- OUTSIDE RECORDS SUMMARY | ~2019-11-18 | XMS | Encounter Summary ---
Demographics + + + | Address | [address] | | | [place] [address] | + + + | Home Phone [...] Providers + +------+ + | Care Community Service Patrol Officer Name | Role | Phone | [...] N Young | | | | | [place], [place] | [place], [place] | | | | | [address] | [address] | | | | | [phone] | [phone] | | | | | | | [...] | | | | | | 160 [facility] | | | | | | [address] | | | | | | | [...]
--- OUTSIDE RECORDS SUMMARY | ~2019-11-18 | XMS | Encounter Summary ---
Demographics + + + | Address | [address] | | | [place] [address] | + + + | Home Phone | | + + + | Preferred Language | Unknown | + + + | Marital Status | | + + + | Yazdanism Affiliation | 1077 | + + + | Race | Unknown | + + + | Ethnic Group | Unknown | + + + Author + + + | Author | [facility] | | | and [place] | + + + | Organization | [facility] | [...] Team Providers + +------+ + | Care Salon Stylist Name | Role | Phone | + +------+ + | Rahul Silva MD | PCP | | + +------+ + Encounter Details +--------+ + + + + | Date | Type | Department | Care Team | Description | +--------+ + + + + | 08/19/ | Orders Only | [facility] | Conversion | | | 2017 | | NEPHROLOGY [place] | Transaction, | | | | | [address] | Provider Unknown | | | | | 160 [place] | | | | | | [address] | (Fax) | | | | | [phone] | | | +--------+ + + + [...] 2020 | Visit | | [facility] | | | | | | [address] [facility] | | | | | | [address] | | | | | | | [...] | | | LAB | | | CAMEROONIAN | | | | | + + [...]
--- OUTSIDE RECORDS SUMMARY | ~2019-11-18 | XMS | Encounter Summary ---
Demographics + + + | Address | [address] | | | [place] [address] | + + + | Home Phone [...] Team Providers + +------+ + | Care Medical/Surgery Registered Nurse Name | Role | Phone | [...] + + | 09/17/ | Documentati | [facility] | Oly Alvarenga | Labs Only ([facility] | | 2019 | on | NEPRHOLOGY [place] | V, Medical | 08/24/19) | | | | [address] | Bed Control Specialist | | | | | [address] [place], [place] | | | | | | [address] | | | | | | [phone] | | | +--------+ + + + [...] 2020 | Visit | | [address] [facility] | | | | | | 160 [place], [place] | | | | | | [address] | | | | | | | [...] + + | REFERENCE LAB | [address] [facility] | [place] [address] | [phone] | | [facility] | | | | + + + + + | REFERENCE LAB | [address] [place] [address] | [place] [address] | [phone] | | [facility] | | | | + + + + + documented in this encounter Visit Diagnoses Not on filedocumented in this encounter"
--- OUTSIDE RECORDS SUMMARY | ~2019-11-18 | XMS | Encounter Summary ---
Demographics + + + | Address | [address] | | | [place] [address] | + + + | Home Phone [...] Providers + +------+ + | Care Special Education Curriculum Specialist Name | Role | Phone | [...] N Young | | | | | [place], [place] | [place], [place] | | | | | [address] | [address] | | | | | [phone] | | | | | | | [...] HOSPITALRADHA | | | | | | [address] | | | | | | | [...]
--- OUTSIDE RECORDS SUMMARY | ~2019-11-18 | XMS | Encounter Summary ---
Demographics + + + | Address | [address] | | | [place] [address] | + + + | Home Phone [...] Team Providers + +------+ + | Care Irrigation Flume Layer Name | Role | Phone | [...] + + | 07/21/ | Documentati | [facility] | Simon, | Results (07/19/19) | | 2019 | on | NEPHROLOGY [place] | [facility] | | | | | [address] | [employer] [place] | | | | | [address] [place], [place] | | | | | | [address] | | | | | | [phone] | | | +--------+ + + + [...] 2020 | Visit | | [address] [facility] | | | | | | [address] [place], [place] | | | | | | [address] | | | | | | | [...]
--- OUTSIDE RECORDS SUMMARY | ~2019-11-18 | XMS | Encounter Summary ---
Demographics + + + | Address | [address] | | | [place] [address] | + + + | Home Phone [...] [place] | | | | | [address] | | + + + + + Care Team Providers + +------+ + | Care Special Warfare Operator Name | Role | Phone | + +------+ + PCP | Unavailable | + +------+ + Encounter Details +--------+ + + + + | Date | Type | Department | Care Team | Description | +--------+ + + + + | 04/08/ | Discharge | [facility] at | Summary, Discharge | D/C Summary ODDS | | 1997 | Summary-Tra | [facility] [address] | | | | | nscribed | [address] | | | | | | Mailcode: [id number] | | | | | | [place]onal[place] | | | | | | [place], | | | | | | [place] [address] | | | | | | [phone] | | | +--------+ + + + [...] as of this encounter Discharge Summaries Interface, Audio Specialist In - 12/22/2006 3:12 AM PST [address] [address] [facility] MEDICAL SUMMARY OF HOSPITALIZATION Med Rec No.: [id number] Admission Date: 04/06/98 Name: Kavon Andujar Discharge Date: 04/08/98 STAFF PHYSICIAN: Galo Arora M.D. [facility], Division of Plastic & Reconstructive Surgery PRINCIPAL [...] M.D. Resident, Plastic Surgery Galo Arora M.D. [facility] Division of Plastic & Reconstructive Surgery QIANA/charo P cc: GRIFFIN ASHER MD [address] [place] [address] documented in this encounter Plan of Treatment Not on filedocumented as of this encounter Visit Diagnoses Not on filedocumented in this encounter"
--- OUTSIDE RECORDS SUMMARY | ~2019-11-18 | XMS | Encounter Summary ---
Demographics + + + | Address | [address] | | | [place] [address] | + + + | Home Phone [...] Providers + +------+ + | Care Appeals Assistant Name | Role | Phone | + +------+ + | Rahul Silva MD | PCP | | + +------+ + Encounter Details +--------+ + + + + | Date | Type | Department | Care Team | Description | +--------+ + + + + | 05/27/ | Orders Only | [facility] | Conversion | | | 2018 | | NEPRHOLOGY [place] | Transaction, | | | | | [address] | Provider Unknown | | | | | [address] [place], [place] | [phone] | | | | | [address] | (Fax) | | | | | [phone] | | | +--------+ + + + [...] HOSPITALRADHA | | | | | | [address] | | | | | | | [...]
--- OUTSIDE RECORDS SUMMARY | ~2019-11-18 | XMS | Encounter Summary ---
Demographics + + + | Address | [address] | | | [place] [address] | + + + | Home Phone [...] Team Providers + +------+ + | Care Wind Energy Technician Name | Role | Phone | [...] Unknown | | | | | [address] [place], [place] | | | | | | [address] | (Fax) | | | | | [phone] | | | +--------+ + + + [...] | Visit | | [address] [facility] | | | | | | [address] [place], [place] | | | | | | [address] | | | | | | | [...] in this encounter Results External Lab: CBC (04/10/2015 12:00 AM PDT) + + + [...]
--- OUTSIDE RECORDS SUMMARY | ~2019-11-18 | XMS | Encounter Summary ---
Demographics + + + | Address | [address] | | | [place] [address] | + + + | Home Phone [...] Providers + +------+ + | Care Casting Machine Operator Name | Role | Phone | + +------+ + | Rahul Silva MD | PCP | | + +------+ + Encounter Details +--------+ + + + + | Date | Type | Department | Care Team | Description | +--------+ + + + + | 01/26/ | Orders Only | [facility] | Conversion | | | 2014 | | NEPRHOLOGY [place] | Transaction, | | | | | [address] | Provider Unknown | | | | | [address] [place], [place] | | | | | | [address] | (Fax) | | | | | [phone] | | | +--------+ + + + [...] 2020 | Visit | | [address] [facility] | | | | | | [address] [place], [place] | | | | | | [address] | | | | | | | [...] | | | LAB | | | GUYANESE | | | | | + + [...]
--- OUTSIDE RECORDS SUMMARY | ~2019-11-18 | XMS | Encounter Summary ---
Demographics + + + | Address | [address] | | | [place] [address] | + + + | Home Phone [...] Team Providers + +------+ + | Care Rental Representative Name | Role | Phone | + +------+ + | Rahul Silva MD | PCP | | + +------+ + Encounter Details +--------+ + + + + | Date | Type | Department | Care Team | Description | +--------+ + + + + | 03/24/ | Orders Only | [facility] | Farrukh Acuna MD | | | 2017 | | NEPHROLOGY [place] | [address] [place] | | | | | [address] [place] | [address] [place], [place] | | | | | [address] [place], [place] | [address] | | | | | [address] | | | | | | [phone] | | | +--------+ + + + [...] 2020 | Visit | | [address] [facility] | | | | | | [address] [place] | | | | | | [address] | | | | | | | [...]
--- OUTSIDE RECORDS SUMMARY | ~2019-11-18 | XMS | Encounter Summary ---
Demographics + + + | Address | [address] | | | [place] [address] | + + + | Home Phone [...] Providers + +------+ + | Care Media Aid Name | Role | Phone | [...] + + | 09/24/ | Telephone | [facility] | Farrukh Acuna MD | Lab Results | | 2019 | | NEPHROLOGY [place] | [address] [place] | | | | | [address] [place] | 160 [place], [place] | | | | | 160 [place], [place] | [address] | | | | | [address] | | | | | | [phone] | | | +--------+ + + + [...] | | | | | [address] [place] | | | | | | [address] | | | | | | | | +--------+---------+ + + + documented as of this encounter Visit Diagnoses Not on filedocumented in this encounter"
--- OUTSIDE RECORDS SUMMARY | ~2019-11-18 | XMS | Encounter Summary ---
Demographics + + + | Address | [address] | | | [place] [address] | + + + | Home Phone [...] Team Providers + +------+ + | Care Calculus Professor Name | Role | Phone | + +------+ + | Rahul Silva MD | PCP | | + +------+ + Encounter Details +--------+ + + + + | Date | Type | Department | Care Team | Description | +--------+ + + + + | 07/14/ | Orders Only | [facility] | Farrukh Acuna MD | | | 2018 | | NEPRHOLOGY [place] | [address] | | | | | [address] [place] | [address] [place], [place] | | | | | 101 [place], [place] | [address] | | | | | [address] | | | | | | [phone] | | | +--------+ + + + [...] [place] | | | | | | [address] | | | | | | | [...]
--- OUTSIDE RECORDS SUMMARY | ~2019-11-18 | XMS | Encounter Summary ---
Demographics + + + | Address | [address] | | | [place] [address] | + + + | Home Phone [...] Team Providers + +------+ + | Care Contractor Field Hauling Name | Role | Phone | + [...] N Young | | | | | [place], [place] | [place], [place] | | | | | [address] | [address] | | | | | [phone] | [phone] | | | | | | | [...] HOSPITALRADHA | | | | | | [address] | | | | | | | [...]
--- OUTSIDE RECORDS SUMMARY | ~2019-11-18 | XMS | Encounter Summary ---
Demographics + + + | Address | [address] | | | [place] [address] | + + + | Home Phone [...] Team Providers + +------+ + | Care Valver Name | Role | Phone | + [...] N Young | | | | | [place], [place] | [place], [place] | | | | | [address] | [address] | | | | | [phone] | [phone] | | | | | | | [...] SYSTEMRADHA | | | | | | [address] | | | | | | | [...]
--- OUTSIDE RECORDS SUMMARY | ~2019-11-18 | XMS | Encounter Summary ---
Demographics + + + | Address | [address] | | | [place] [address] | + + + | Home Phone [...] Team Providers + +------+ + | Care Lap Checker Name | Role | Phone | [...] | | | stage 5, GFR | [address] | | | | | | less than | Phone: | | | | | | 15 ml/min | [phone] | | | | | | (HCC) | Fax: | | | | | | Procedures | [phone] | | | | | | VAS [...] + + | 10/20/ | Office | [facility] | Trisha Conner DNP | CKD (chronic kidney | | 2019 | Visit | VASCULAR SURGERY | [address] | disease) stage 5, | | | | [address] | [place] | GFR less than 15 | | | | [place], [place] | [address] | ml/min (HCC) | | | | [address] | | (Primary Dx); AVF | | | | [phone] | | (arteriovenous | | | | [...] Trisha Conner DNP - 10/20/2019 2:30 PM [facility] [address] [place] [address] Office: [phone] DATE OF VISIT: 10/20/2019 PATIENT NAME: Kavon Andujar : 1940; AGE: 79 y.o.; Sex:M PHONE NUMBER: ; ; PROVIDER: Trisha Conner DNP PRIMARY CARE / REFERRING PHYSICIAN: No ref. provider found / Rahul Silva MD / [address] / [place] [address] REASON FOR EVALUATION / CHIEF COMPLAINT: Vascular Surgery Postoperative Visit for AVF creation The patient presents today for a Vascular Surgery Postoperative Visit. The patient is statu s post right brachiocephalic AVF creation, which was performed on 09/10/2019 at the [facility]. The patient is not having any pain. The patient denie s fever, wound drainage, increasing redness, pus, increasing pain, increasing swelling. Phys ical examination revealed surgical incision is healed. He has good thrills over the AVF site . Patient's electrical project manager is Dr. Acuna. The patient is not [...] 2019 | Visit | | [address] [facility] | | | | | | 160 [place], [place] | | | | | | [address] | | | | | | | [...] (arteriovenous fistula) ([facility]) Arteriovenous fistula, acquired | + + documented in this encounter"
--- OUTSIDE RECORDS SUMMARY | ~2019-11-18 | XMS | Encounter Summary ---
Demographics + + + | Address | [address] | | | [place] [address] | + + + | Home Phone [...] Providers + +------+ + | Care Property Consultant Name | Role | Phone | [...] Young | | | | | [place], [place] | [place], [place] | | | | | [address] | [address] | | | | | [phone] | [phone] | | | | | | | [...] | | | | | | [address] [facility] | | | | | | [address] | | | | | | | [...]
--- OUTSIDE RECORDS SUMMARY | ~2019-11-18 | XMS | Encounter Summary ---
Demographics + + + | Address | [address] | | | [place] [address] | + + + | Home Phone [...] Team Providers + +------+ + | Care Hair Blender Name | Role | Phone | [...] N Young | | | | | [place], [place] | [place], [place] | | | | | [address] | [address] | | | | | [phone] | [phone] | | | | | | | [...] HOSPITALRADHA | | | | | | [address] | | | | | | | [...]
--- OUTSIDE RECORDS SUMMARY | ~2019-11-18 | XMS | Encounter Summary ---
Demographics + + + | Address | [address] | | | [place] [address] | + + + | Home Phone [...] Team Providers + +------+ + | Care Wealth Management Director Name | Role | Phone [...] N Young | | | | | [place], [place] | [place], [place] | | | | | [address] | [address] | | | | | [phone] | [phone] | | | | | | | [...] 2020 | Visit | | [address] [facility] | | | | | | 160 [facility] | | | | | | [address] | | | | | | | [...]
--- OUTSIDE RECORDS SUMMARY | ~2019-11-18 | XMS | Encounter Summary ---
Demographics + + + | Address | [address] | | | [place] [address] | + + + | Home Phone [...] Providers + +------+ + | Care Dispatcher Maintenance Name | Role | Phone | + +------+ + | Rahul Silva MD | PCP | | + +------+ + Encounter Details +--------+ + + + + | Date | Type | Department | Care Team | Description | +--------+ + + + + | 08/19/ | Orders Only | [facility] | Farrukh Acuna MD | | | 2018 | | NEPHROLOGY [place] | [address] [place] | | | | | [address] [place] | [address] [place], [place] | | | | | [address] [place], [place] | [address] | | | | | [address] | | | | | | [phone] | | | +--------+ + + + [...] 2020 | Visit | | [address] [facility] | | | | | | [address] [place] | | | | | | [address] | | | | | | | [...]
--- OUTSIDE RECORDS SUMMARY | ~2019-11-18 | XMS | Encounter Summary ---
Demographics + + + | Address | [address] | | | [place] [address] | + + + | Home Phone [...] Providers + +------+ + | Care Inspector Plating Name | Role | Phone | + [...] + + | 08/18/ | Refill | [facility] | Sandy Capellan | Medication Refill | | 2019 | | NEPRHOLOGY [place]IG[place] Valadez RN | | | | | [address] | | | | | | [address] [place], [place] | | | | | | [address] | | | | | | [phone] | | | +--------+--------+ + + + [...] [place] | | | | | | [address] | | | | | | | [...]
--- OUTSIDE RECORDS SUMMARY | ~2019-11-18 | XMS | Encounter Summary ---
Demographics + + + | Address | [address] | | | [place] [address] | + + + | Home Phone [...] Team Providers + +------+ + | Care Coal Dumping Equipment Operator Name | Role | Phone [...] | | | 2018 | | NEPRHOLOGY [place] | [address] | | | | | [address] | [address] [place], [place] | | | | | 101 [place], [place] | [address] | | | | | [address] | | | | | | [phone] | | | +--------+ + + + [...] 2020 | Visit | | [address] [facility] | | | | | | [address] [place] | | | | | | [address] | | | | | | | [...]
--- OUTSIDE RECORDS SUMMARY | ~2019-11-18 | XMS | Encounter Summary ---
Demographics + + + | Address | [address] | | | [place] [address] | + + + | Home Phone [...] Providers + +------+ + | Care Ground Crewman Mission Support Name | Role | Phone | + [...] N Young | | | | | [place], [place] | [place], [place] | | | | | [address] | [address] | | | | | [phone] | [phone] | | | | | | | [...] | | | | | | [address] [facility] | | | | | | [address] | | | | | | | [...]
--- OUTSIDE RECORDS SUMMARY | ~2019-11-18 | XMS | Encounter Summary ---
Demographics + + + | Address | [address] | | | [place] [address] | + + + | Home Phone [...] Team Providers + +------+ + | Care Midwife Name | Role | Phone | [...] N Young | | | | | [place], [place] | [place], [place] | | | | | [address] | [address] | | | | | [phone] | [phone] | | | | | | | [...] | Visit | | [address] [facility] | | | | | | [address] [facility] | | | | | | [address] | | | | | | | [...]
--- OUTSIDE RECORDS SUMMARY | ~2019-11-18 | XMS | Encounter Summary ---
Demographics + + + | Address | [address] | | | [place] [address] | + + + | Home Phone [...] Providers + +------+ + | Care Fruit Pitter Name | Role | Phone | + [...] | | | | disease not | [place], | [place], [place] | | | | | on chronic | [place] [address] | [address] | | | | | dialysis | Phone: | Phone: | | | | | ([facility]) | [phone] | [phone] | | | | | Hypertension | Fax: | Fax: | | | | | , | [phone] | [phone] | | | | | unspecified | | | | | | | type | | | +--------+ + + + + + Encounter Details +--------+ + + + + | Date | Type | Department | Care Team | Description | +--------+ + + + + | 07/28/ | Orders Only | [facility] | Farrukh Acuna MD | Iron deficiency | | 2019 | | NEPHROLOGY [place] | [address] [place] | (Primary Dx); Anemia | | | | [address] [place] | [address] [place], [place] | of chronic kidney | | | | [address] [place], [place] | [address] | failure, stage 5 | | | | [address] | | ([facility]); Stage 5 | | | | [phone] | | chronic kidney | | | | | | disease not on | | | | | | chronic dialysis | | | | | | ([facility]); Secondary | | | | | | hyperparathyroidism | | | | | | ([facility]); Hypertension, | | | | | | [...] [place] | | | | | | [address] | | | | | | (Fax) [...] dialysis | | | | | | ([facility]) Hypertension, | | | | | | [...] hyperparathyroidism | | | | | | ([facility]) Hypertension, | | | | | | unspecified type | | + +------+--------+ + + + + +--------+ + + | Name | Type | Priori | Associated Diagnoses | Order Schedule | | | | ty | | | + + +--------+ + + | Ambulatory Referral | Outpatient | Routin | Stage 5 chronic | Ordered: 07/28/2019 | | to [facility] | Referral | e | kidney disease not | | | Surgery | | | on chronic dialysis | | | | | | ([facility]) Hypertension, | | | | | | [...]
--- OUTSIDE RECORDS SUMMARY | ~2019-11-18 | XMS | Encounter Summary ---
Demographics + + + | Address | [address] | | | [place] [address] | + + + | Home Phone [...] [place] | | | | | [address] | | + + + + + Care Team Providers + +------+ + | Care Filbert Grower Name | Role | Phone | + +------+ + PCP | Unavailable | + +------+ + Encounter Details +--------+ + + + + | Date | Type | Department | Care Team | Description | +--------+ + + + + | 12/22/ | Results | | Other, Faculty | | | 1997 | Only | | [phone] | | +--------+ + + + + [...] | | | | | | 12/22/96 [id number] hours. | | | | | | [...] | | + +---------+ + + | [facility] DEPARTMENT OF | | | [...] | | | | | | | [id number] | | | | | | SPINE, [...] | | + +---------+ + + | [facility] DEPARTMENT OF | | | | | RADIOLOGY | | | | + +---------+ + + documented in this encounter Visit Diagnoses Not on filedocumented in this encounter"
--- OUTSIDE RECORDS SUMMARY | ~2019-11-18 | XMS | Encounter Summary ---
Demographics + + + | Address | [address] | | | [place] [address] | + + + | Home Phone [...] Providers + +------+ + | Care Gas Combustion Engineer Name | Role | Phone | [...] + + | 08/26/ | Office | [facility] | Trisha Conner DNP | CKD (chronic kidney | | 2019 | Visit | VASCULAR SURGERY | [address] | disease) stage 5, | | | | [address] [place] | [place], [place] | GFR less than 15 | | | | [place], [place] | [address] | ml/min (HCC) | | | | [address] | | (Primary Dx) | | | | [phone] | Brian Orosco MD | | | | | | [address] | | | | | | [place], [place] | | | | | | [address] | | | | | | [phone] | | | | | | | [...] CV: No peripheral edema, rate regular SKIN: [place], warm, dry without rash/lesion MS: ROM not [...] 2019 | Visit | | [address] [facility] | | | | | | [address] [place], [place] | | | | | | [address] | | | | | | | [...] 15 ml/min ([facility]) - Primary Chronic | | kidney disease, Stage V | + + documented in this encounter"
--- OUTSIDE RECORDS SUMMARY | ~2019-11-18 | XMS | Encounter Summary ---
Demographics + + + | Address | [address] | | | [place] [address] | + + + | Home Phone [...] Team Providers + +------+ + | Care Horticulture Instructor Name | Role | Phone | [...] | Transaction, | | | | | [place], [place] | Provider Unknown | | | | | [address] | | | | | | [phone] | | | +--------+ + + + [...] Visit | | [address] [facility] | | | | | | [address] [place] | | | | | | [address] | | | | | | | [...]
--- OUTSIDE RECORDS SUMMARY | ~2019-11-18 | XMS | Encounter Summary ---
Demographics + + + | Address | [address] | | | [place] [address] | + + + | Home Phone [...] [place] | | | | | [address] | | + + + + + Care Team Providers + +------+ + | Care Powerbuilder Name | Role | Phone | + [...] | | | | | | [facility] | | | | | | [place] [address] | | | | | | [phone] | | | +--------+ + + + [...] as of this encounter Progress Notes Interface, Nut Processing Supervisor In - 02/14/2007 3:12 AM PDT [address] [address] or September 09, 1996 Nestor VALLES MD [address] [place] [id number] RE: PORFIRIO ZAVALA MR#: [id number] Valles: Your patient, Porfirio Zavala, was seen for follow up today in the Neurosurgery Clinic at [facility]. 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 Following our initial evaluation, we recommended [...] Fellow, Neurosurgery Alina Moise M.D. Professor and Petal Shaper Hand, Division of Neurosurgery HECTOR/hiro documented in this encounter Plan of Treatment Not on filedocumented as of this encounter Visit Diagnoses Not on filedocumented in this encounter"
--- OUTSIDE RECORDS SUMMARY | ~2019-11-18 | XMS | Encounter Summary ---
Demographics + + + | Address | [address] | | | [place] [address] | + + + | Home Phone | | + + + | Preferred Language | Unknown | + + + | Marital Status | Single | + + + | Buddhist Affiliation | PRO | + + + [...] [place] | | | | | [address] | | + + + + + Care Team Providers + +------+ + | Care Flavorer Name | Role | Phone | + [...] | | | amputation | [place], | [place], [place] | | | | | stump, | [place] [address] | [address] | | | | | unspecified | Phone: | Phone: | | | | | | [phone] | [phone] | | | | | | Fax: | Fax: | | | | | | [phone] | [phone] | +--------+--------+ + + + + Encounter Details +--------+---------+ + + + | Date | Type | Department | Care Team | Description | +--------+---------+ + + + | 04/10/ | Office | [facility] Comprehensive | Seven Reilly MD | Low back pain; | | 2009 | Visit | Pain Center at | [address] | Herniated lumbar | | | | [facility] | [place], [place] | intervertebral disc; | | | | [address] | [address] | Stump pain (HCC) | | | | Mailcode: [facility] | [phone] | | | | | [facility] | | | | | | and Healing, | | | | | | Building | | | | | | Floor [place], [place] | | | | | | [address] | | | | | | [phone] | | | +--------+---------+ + + + [...] trainee's note. Seven Reilly MD, DABA, [facility] [place] [facility] P DTMariano Martinez MD - 04/10/2010 12:30 PM PDT [facility] Office Visit 04/10/2010 Kavon Andujar; ; : 1940 Mr. Andujar was referred for pain management consultation by RAHUL COYNE MD [address] [place] [address], [place] [address] Reason for visit: Chief Complaint Patient presents [...] that the most effective treatments include: medications. WEIGHT CHECKER Brief Pain Inventory: (ten= worst possible pain [...] above. As part of today's visit the [facility] new patient questionnaire was [...] you expect from your visits to the [facility] ? Don't know Vital [...] and summary of old medical records (source: [employer]), as summarized in the body of the [...] generic medication. Follow up: none scheduled at [facility] [place]. Mariano Martinez MD Pain Fellow [facility] [place] [facility] documented in this encounter Plan [...]
--- OUTSIDE RECORDS SUMMARY | ~2019-11-18 | XMS | Encounter Summary ---
Demographics + + + | Address | [address] | | | [place] [address] | + + + | Home Phone [...] Providers + +------+ + | Care Hospice Consultant Name | Role | Phone | [...] + + | 11/12/ | Documentati | [facility] | Simon, | Results (11/10/19) | | 2019 | on | NEPHROLOGY [place] | [facility] | | | | | [address] [place] | [place] | | | | | [address] [place], [place] | | | | | | [address] | | | | | | [phone] | | | +--------+ + + + [...] [place] | | | | | | [address] | | | | | | | [...]
--- OUTSIDE RECORDS SUMMARY | ~2019-11-18 | XMS | Encounter Summary ---
Demographics + + + | Address | [address] | | | [place] [address] | + + + | Home Phone [...] [address] | | | | | [place], [place] | [place], [place] | | | | | [address] | [address] | | | | | [phone] | [phone] | | | | | | | [...] 2020 | Visit | | [address] [facility] | | | | | | [facility] | | | | | | [address] | | | | | | | [...]
--- OUTSIDE RECORDS SUMMARY | ~2019-11-18 | XMS | Encounter Summary ---
Demographics + + + | Address | [address] | | | [place] [address] | + + + | Home Phone [...] Providers + +------+ + | Care Dressage Judge Name | Role | Phone | + [...] | | | ([facility]) | | | | | | | [...] + + | 09/10/ | Surgery | [facility] | Brian Orosco MD | INSERTION AV FISTULA | | 2019 | [facility] | [address] | (Right BBF) | | | | OPERATING ROOM [address] | [place], [place] | | | | | [place] | [address] | | | | | [place], [place] | [phone] | | | | | [address] | | | | | | [phone] | | | +--------+---------+ + + + [...] shunt, please contact your ph ysician at [phone]. Discharge instructions for Diagnostic Imaging sedation patients [...] in a reclining position for the ri wa home, or have an adult in the [...] Anexsia, Lorcet, Lorcet HD, Lorcet Plus, Lortab, Mirror [place], Verdrocet, Vicodin, Vi codin ES, Vicodin HP, [...] information carefully each time. Talk to your alternative dispute resolution mediator regarding the use of this medicine in children. Special care may be needed. What side effects may I notice from receiving this medicine? Side effects that you should report to your doctor or health health care social worker as soon as p ossible: allergic reactions [...] attention (report to your doctor or health health care social worker if they continue or are bothersome): constipation [...] official disposal site. Contact the [facility] at [phone] or your [facility] to find a site. If you [...] this medicine? Tell your doctor or health health care social worker if your pain does not go away, [...] cuts, scrapes, or blows. Date Last Reviewed: 12/01/201619991448-3695 [employer]. [address] [place] [address], [place] [id number]. All righ ts reserved. This information is [...] | | | | ([facility]), Secondary | | | | | | | hyperparathyroidism | | | | | | | ([facility]) | | | | | | + [...] and bl ood clots prevention. Prescription for Mirror Lake given and side effects were explained. Patient states that he also takes oxycodone at home; patient and his family were educated about taki ng oxycodone or Mirror [place] only and not both. OTC Tylenol intake [...] 2019 | Visit | | [address] [facility] | | | | | | 160 [place], [place] | | | | | | [address] | | | | | | | [...] | than 15 ml/min ([facility]) | | + +--------+ + + + [...] Testing | 65 - 99 mg/dL | [facility] | | | POC | performed at [facility];[address] | | LABORATORY | | | | [address];[place], [place] | | | | | | [address] | | | | + + + + + + + + | Specimen | + + | | + + + + + + + | Performing | Address | City/State/Zipcode | Phone Number | | Organization | | | | + + + + + | [facility] | [address] | [place] [address] | [phone] | + + + + + POC [...] | | | POC | performed at [facility];[address] | | LABORATORY | | | | [address];[place] | | | | | | [address] | | | | + + + + + + + + | Specimen | + + | | + + + + + + + | Performing | Address | City/State/Zipcode | Phone Number | | Organization | | | | + + + + + | [facility] | [address] | [place] [address] | [phone] | + + + + + documented [...] One week or | | | longer, fnndsq-mtw-pnbvj use of | | | at least [...]
--- OUTSIDE RECORDS SUMMARY | ~2019-11-18 | XMS | Encounter Summary ---
Demographics + + + | Address | [address] | | | [place] [address] | + + + | Home Phone [...] Team Providers + +------+ + | Care Tree Thinner Name | Role | Phone | + [...] | Transaction, | | | | | [place], [place] | Provider Unknown | | | | | [address] | | | | | | [phone] | | | +--------+ + + + [...] [place] | | | | | | [address] | | | | | | | [...]
--- OUTSIDE RECORDS SUMMARY | ~2019-11-18 | XMS | Encounter Summary ---
Demographics + + + | Address | [address] | | | [place] [address] | + + + | Home Phone [...] Team Providers + +------+ + | Care Interim Controller Name | Role | Phone | + [...] CENTER [place] | | | | | [place], [place] | [address] [place] [place] | | | | | [address] | [address] | | | | | [phone] | | | +--------+ + + + [...] [facility] | | | | | | [address] [place] | | | | | | [address] | | | | | | | [...]
--- OUTSIDE RECORDS SUMMARY | ~2019-11-18 | XMS | Encounter Summary ---
Demographics + + + | Address | [address] | | | [place] [address] | + + + | Home Phone [...] Providers + +------+ + | Care Production Support Manager Name | Role | Phone | + +------+ + | Rahul Silva MD | PCP | | + +------+ + Encounter Details +--------+ + + + + | Date | Type | Department | Care Team | Description | +--------+ + + + + | 05/27/ | Orders Only | [facility] | Farrukh Acuna MD | | | 2017 | | NEPHROLOGY [place] | [address] [place] | | | | | [address] [place] | [address] [place], [place] | | | | | [address] [place], [place] | [address] | | | | | [address] | | | | | | [phone] | | | +--------+ + + + [...] [place] | | | | | | [address] | | | | | | | [...] | | | LAB | | | ETHIOPIAN | | | | | + + [...]
--- OUTSIDE RECORDS SUMMARY | ~2019-11-18 | XMS | Encounter Summary ---
Demographics + + + | Address | [address] | | | [place] [address] | + + + | Home Phone [...] Team Providers + +------+ + | Care Improvement Coordinator Name | Role | Phone | + +------+ + | Rahul Silva MD | PCP | | + +------+ + Encounter Details +--------+ + + + + | Date | Type | Department | Care Team | Description | +--------+ + + + + | 08/13/ | Orders Only | [facility] | Farrukh Acuna MD | | | 2017 | | NEPHROLOGY [place] | [address] [place] | | | | | [address] [place] | [address] [place], [place] | | | | | [address] [place], [place] | [address] | | | | | [address] | | | | | | [phone] | | | +--------+ + + + [...] [place] | | | | | | [address] | | | | | | | [...] | | | LAB | | | ZAMBIAN | | | | | + + [...]
--- OUTSIDE RECORDS SUMMARY | ~2019-11-18 | XMS | Clinical Summary ---
Demographics + + + | Address | [address] | | | [place] [address] | + + + | Home Phone | | + + + | Preferred Language | Unknown | + + + | Marital Status | | + + + | Taoist Affiliation | 1077 | + + + | Race | Unknown | + + + | Ethnic Group | Unknown | + + + Author + + + | Author | [facility] [facility] [employer] (Historical as of | | | 07-17-19) | + + + | Organization | [facility] [employer] (Historical as of | | | 07-17-19) [...] Team Providers + +------+ + | Care Bending Frame Operator Name | Role | Phone | [...] | | | | | 4 (severe) ([facility]), | | | | | [...] Last Assessment & Plan: Controlled on current yr | | old male with COPD, [...] +------+-------+ + | MEDICARE | MEDICA | [id number] | | | [address] | | | RE | | | | [place], [place] [address] | | | IP-OP | | | | | + +--------+ +------+-------+ + | MEDICAID | [place] | [id number] | | | [address] | | | N | | | | [place], [place] | | | [place] | | | | [address] | | | CASH CONTROL SPECIALIST | | | | | + [...] | | al/Fam | | 1940 | [phone] | [place], [place] | | | chula | | | [address]24 | [address] | + +--------+ +--------+ + +
--- OUTSIDE RECORDS SUMMARY | ~2019-11-18 | XMS | Encounter Summary ---
Demographics + + + | Address | [address] | | | [place] [address] | + + + | Home Phone [...] [place] | | | | | [address] | | + + + + + Care Team Providers + +------+ + | Care Access Service Representative Name | Role | Phone | [...] | | | amputation | [place], | [place], [place] | | | | | stump, | [place] [address] | [address] | | | | | unspecified | Phone: | Phone: | | | | | | [phone] | [phone] | | | | | | Fax: | Fax: | | | | | | [phone] | [phone] | +--------+--------+ + + + + Encounter Details +--------+---------+ + + + | Date | Type | Department | Care Team | Description | +--------+---------+ + + + | 04/10/ | Office | [facility] Comprehensive | Seven Reilly MD | Low back pain; | | 2009 | Visit | Pain Center at | [address] | Herniated lumbar | | | | [facility] | [place], [place] | intervertebral disc; | | | | [address] | [address] | Stump pain (HCC) | | | | Mailcode: [facility] | [phone] | | | | | [facility] | | | | | | and Healing, | | | | | | Building | | | | | | Floor [place], [place] | | | | | | [address] | | | | | | [phone] | | | +--------+---------+ + + + [...] the trainee's note. Seven Reilly MD, DABA, [facility] [place] [facility] P DTMariano Martinez MD - 04/10/2010 12:30 PM PDT [facility] Office Visit 04/10/2010 Kavon Andujar; ; : 1940 Mr. Andujar was referred for pain management consultation by RAHUL COYNE MD [address] [place] [address], [place] [address] Reason for visit: Chief Complaint Patient presents [...] pain. He has been referred to the [facility] for consultation regarding this [...] that the most effective treatments include: medications. CONCRETE PLANT LABORER Brief Pain Inventory: (ten= worst possible pain [...] above. As part of today's visit the [facility] new patient questionnaire [...] you expect from your visits to the [facility] ? Don't know [...] and summary of old medical records (source: [employer]), as summarized in the body of the [...] generic medication. Follow up: none scheduled at [facility] [place]. Mariano Martinez MD Pain Fellow [facility] [place] [facility] documented in this encounter Plan of [...]
--- OUTSIDE RECORDS SUMMARY | ~2019-11-18 | XMS | Encounter Summary ---
Demographics + + + | Address | [address] | | | [place] [address] | + + + | Home Phone [...] [place] | | | | | [address] | | + + + + + Care Team Providers + +------+ + | Care Contour Band Saw Operator Vertical Name | Role | Phone | + +------+ + | Rahul Silva MD | PCP | | + +------+ + Encounter Details +--------+ + + + + | Date | Type | Department | Care Team | Description | +--------+ + + + + | 01/14/ | Office | UNKNOWN DEPARTMENT | Other, Faculty | Progress Note | | 2000 | Visit-Trans | [address] [facility] | [phone] | | | | [place] | [address] | | | | | | [place], [place] | | | | | | [address] | | | +--------+ + + + [...] that he see one of our patient access specialist for further evaluation, and he did appear interested in doing that. 2. Referral to Dr. Willis in Orthopedics. Yuriy Huang M.D. manager front office [facility] / [id number] / [id number] / [id number] / [id number] C: 01/23/2001 nw documented in this encounter Plan of Treatment Not on filedocumented as of this encounter Visit Diagnoses Not on filedocumented in this encounter"
--- OUTSIDE RECORDS SUMMARY | ~2019-11-18 | XMS | Encounter Summary ---
Demographics + + + | Address | [address] | | | [place] [address] | + + + | Home Phone [...] Team Providers + +------+ + | Care Incendiary Powder Mixer Name | Role | Phone | + +------+ + PCP | Unavailable | + +------+ + Encounter Details +--------+ + + + + | Date | Type | Department | Care Team | Description | +--------+ + + + + | 07/18/ | [facility] | [facility] | Nelson Lutz MD | | | 2002 | Encounter | MED CTR GENERIC OP | [address] [place] | | | | | CONV DEPT [address] | [address] [place] | | | | | [place], | [address] | | | | | [place] [address] | | | | | | [phone] | | | +--------+ + + + [...] | | | | | | [address] [place] | | | | | | [address] | | | | | | | | +--------+---------+ + + + documented as of this encounter Visit Diagnoses Not on filedocumented in this encounter"
--- OUTSIDE RECORDS SUMMARY | ~2019-11-18 | XMS | Encounter Summary ---
Demographics + + + | Address | [address] | | | [place] [address] | + + + | Home Phone [...] Providers + +------+ + | Care Housing Specialist Name | Role | Phone | + +------+ + | Rahul Silva MD | PCP | | + +------+ + Encounter Details +--------+ + + + + | Date | Type | Department | Care Team | Description | +--------+ + + + + | 10/01/ | Telephone | [facility] | Farrukh Acuna MD | | | 2018 | | [place] [place] | [address] [facility] | | | | | [address] | [address] [place], [place] | | | | | [place] | [address] | | | | | [address] | | | | | | [phone] | | | +--------+ + + + [...] HOSPITAL[facility] | | | | | | [address] | | | | | | | | +--------+---------+ + + + documented as of this encounter Visit Diagnoses Not on filedocumented in this encounter"
--- OUTSIDE RECORDS SUMMARY | ~2019-11-18 | XMS | Encounter Summary ---
Demographics + + + | Address | [address] | | | [place] [address] | + + + | Home Phone [...] [place] | | | | | [address] | | + + + + + Care Team Providers + +------+ + | Care Plasma Processing Technician Name | Role | Phone | + +------+ + PCP | Unavailable | + +------+ + Encounter Details +--------+ + + + + | Date | Type | Department | Care Team | Description | +--------+ + + + + | 04/06/ | Procedure - | [facility] | Record, Operation | Operative Report | | 1997 | | [place] [facility] | | | | | Transcribed | Ruben Linares | | | | | | Mailcode: [place] | | | | | | [facility] and | | | | | | Healing, [address] | | | | | | [facility] [place] | | | | | | [address] | | | | | | [phone] | | | +--------+ + + + [...] + + | 04/06/1998 12:00 AM PDT [place] | | [facility] | | [address] [place], [place] [address] | | [facility] | | | | OPERATION RECORD | | | | Med Rec No.: [id number] Date: 04/06/98 | | | | Name: Con Kavon Morris | | | | | | ATTENDING SURGEON: | | Galo Arora M.D. | | Factory Engineer, | | Division of Plastic & | | Reconstructive Surgery | | BELT MACHINE OPERATOR(S): | | Barry Fofana M.D. | | [...] | | Galo Arora M.D. | | Factory Engineer, | | Division of Plastic & | | Reconstructive Surgery | | WOJCIECH/pita | | | | P | | C: 05/12/98 lv | | cc: | | | + + documented in this encounter Visit Diagnoses Not on filedocumented in this encounter"
--- OUTSIDE RECORDS SUMMARY | ~2019-11-18 | XMS | Encounter Summary ---
Demographics + + + | Address | [address] | | | [place] [address] | + + + | Home Phone [...] Team Providers + +------+ + | Care Escalator Service Mechanic Name | Role | Phone | + +------+ + | Rahul Silva MD | PCP | | + +------+ + Encounter Details +--------+ + + + + | Date | Type | Department | Care Team | Description | +--------+ + + + + | 10/08/ | Orders Only | [facility] | Farrukh Acuna MD | | | 2016 | | NEPHROLOGY [place] | [address] [place] | | | | | [address] [place] | [address] [place], [place] | | | | | [address] [place], [place] | [address] | | | | | [address] | | | | | | [phone] | | | +--------+ + + + [...] [place] | | | | | | [address] | | | | | | | [...]
--- OUTSIDE RECORDS SUMMARY | ~2019-11-18 | XMS | Encounter Summary ---
Demographics + + + | Address | [address] | | | [place] [address] | + + + | Home Phone [...] Team Providers + +------+ + | Care Powered Bridge Specialist Name | Role | Phone | [...] | | | [address] [place], [place] | [address] | | | | | [address] | | | | | | [phone] | | | +--------+ + + + [...] [place] | | | | | | [address] | | | | | | | [...]
--- OUTSIDE RECORDS SUMMARY | ~2019-11-18 | XMS | Encounter Summary ---
Demographics + + + | Address | [address] | | | [place] [address] | + + + | Home Phone [...] Providers + +------+ + | Care Medical Laboratory Technician Name | Role | Phone | + +------+ + | Rahul Silva MD | PCP | | + +------+ + Encounter Details +--------+ + + + + | Date | Type | Department | Care Team | Description | +--------+ + + + + | 08/19/ | Orders Only | [facility] | Conversion | | | 2017 | | NEPHROLOGY [place] | Transaction, | | | | | [address] | Provider Unknown | | | | | [address] [place] | | | | | | [address] | (Fax) | | | | | [phone] | | | +--------+ + + + [...] [place] | | | | | | [address] | | | | | | | [...] | | | LAB | | | FILIP[place] | | | | | + + [...]
--- OUTSIDE RECORDS SUMMARY | ~2019-11-18 | XMS | Encounter Summary ---
Demographics + + + | Address | [address] | | | [place] [address] | + + + | Home Phone [...] Providers + +------+ + | Care Dry Cleaner Hand Name | Role | Phone | + +------+ + | Rahul Silva MD | PCP | | + +------+ + Encounter Details +--------+ + + + + | Date | Type | Department | Care Team | Description | +--------+ + + + + | 08/31/ | Orders Only | [facility] | Farrukh Acuna MD | | | 2013 | | NEPHROLOGY [place] | [address] [place] | | | | | [address] [place] | [address] [place], [place] | | | | | [address] [place], [place] | [address] | | | | | [address] | | | | | | [phone] | | | +--------+ + + + [...] 2019 | Visit | | [address] [facility] | | | | | | [address] [place] | | | | | | [address] | | | | | | | [...]
--- OUTSIDE RECORDS SUMMARY | ~2019-11-18 | XMS | Encounter Summary ---
Demographics + + + | Address | [address] | | | [place] [address] | + + + | Home Phone | | + + + | Preferred Language | Unknown | + + + | Marital Status | Single | + + + | Mandaeism Affiliation | PRO | + + + [...] [place] | | | | | [address] | | + + + + + Care Team Providers + +------+ + | Care Print Shop Manager Name | Role | Phone [...] Note | | 2000 | Visit-Trans | [address] [facility] | [phone] | | | | [place] | [address] | | | | | | [place], [place] | | | | | | [address] | | | +--------+ + + + [...] recommend that he see one of our front desk specialist for further evaluation, and he did appear interested in doing that. 2. Referral to Dr. Willis in Orthopedics. Yuriy Huang M.D. dcs engineer HOSEAL / [id number] / [id number] / [id number] / [id number] C: 01/23/2001 nw documented in this encounter Plan of Treatment Not on filedocumented as of this encounter Visit Diagnoses Not on filedocumented in this encounter"
--- OUTSIDE RECORDS SUMMARY | ~2019-11-18 | XMS | Encounter Summary ---
Demographics + + + | Address | [address] | | | [place] [address] | + + + | Home Phone [...] Providers + +------+ + | Care Metal Burrer Name | Role | Phone | + [...] + + | 09/01/ | Telephone | [facility] | Farrukh Acuna MD | Other | | 2019 | | NEPRHOLOGY [place] | [address] [place] | | | | | [address] | [address] [place], [place] | | | | | [address] [place], [place] | [address] | | | | | [address] | | | | | | [phone] | | | +--------+ + + + [...] | | | | | | [address] [place], [place] | | | | | | [address] | | | | | | | | +--------+---------+ + + + documented as of this encounter Visit Diagnoses Not on filedocumented in this encounter"
--- OUTSIDE RECORDS SUMMARY | ~2019-11-18 | XMS | Encounter Summary ---
Demographics + + + | Address | [address] | | | [place] [address] | + + + | Home Phone [...] Providers + +------+ + | Care Screen Making Supervisor Name | Role | Phone | [...] + + | 08/10/ | Telephone | [facility] | Brian Orosco MD | Other (orders ) | | 2019 | | VASCULAR SURGERY | [address] | | | | | [address] [place] | [place], [place] | | | | | [place], [place] | [address] | | | | | [address] | [phone] | | | | | [phone] | | | +--------+ + + + [...] [place] | | | | | | [address] | | | | | | (Fax) | | +--------+---------+ + + + documented as of this encounter Visit Diagnoses Not on filedocumented in this encounter"
--- OUTSIDE RECORDS SUMMARY | ~2019-11-18 | XMS | Encounter Summary ---
Demographics + + + | Address | [address] | | | [place] [address] | + + + | Home Phone [...] [place] | | | | | [address] | | + + + + + Care Team Providers + +------+ + | Care Tip Out Worker Name | Role | Phone [...] Clinic | | | | | | [facility], [address] | | | | | | [place], [place] | | | | | | [address] | | | | | | [phone] | | | +--------+ + + + [...] as of this encounter Progress Notes Interface, Forming And Assembling Supervisor In - 01/03/2007 5:08 AM PST CLINIC DATE: 12/22/97 Mr. Andujar is referred by Dr. Jerry Smiley in the [facility]. He is currently followed by the Anesthesia [...] procedure at this time. Eric Mcclure M.D. Materials Development Engineer, Department of Orthopaedics and Rehabilitation AY/egl A cc: Jerry Smiley M.D. (with letter) [address] [place] [address] [address] [place] [address] Robert Carlson M.D. FAX: [phone] Alina Moise M.D. FAX: [phone] Anesthesia Pain ClinicFAX: [phone] documented in this encounter Plan of Treatment Not on filedocumented as of this encounter Visit Diagnoses Not on filedocumented in this encounter
--- OUTSIDE RECORDS SUMMARY | ~2019-11-18 | XMS | Encounter Summary ---
Demographics + + + | Address | [address] | | | [place] [address] | + + + | Home Phone [...] Team Providers + +------+ + | Care Brineyard Supervisor Name | Role | Phone | + +------+ + | Rahul Silva MD | PCP | | + +------+ + Encounter Details +--------+ + + + + | Date | Type | Department | Care Team | Description | +--------+ + + + + | 07/20/ | Orders Only | [facility] | Farrukh Acuna MD | Anemia of chronic | | 2019 | | NEPHROLOGY [place] | [address] [place] | renal failure, stage | | | | [address] [place] | [address] [place], [place] | 4 (severe) (HCC) | | | | [address] [place], [place] | [address] | (Primary Dx); Stage | | | | [address] | | 4 chronic kidney | | | | [phone] | | disease (HCC); | | | [...] | | | | | [address] [facility] | | | | | | [address] | | | | | | | [...]
--- OUTSIDE RECORDS SUMMARY | ~2019-11-18 | XMS | Encounter Summary ---
Demographics + + + | Address | [address] | | | [place] [address] | + + + | Home Phone [...] Team Providers + +------+ + | Care Pamphlet Distributor Name | Role | Phone | + +------+ + | Rahul Silva MD | PCP | | + +------+ + Encounter Details +--------+ + + + + | Date | Type | Department | Care Team | Description | +--------+ + + + + | 02/12/ | Orders Only | [facility] | Farrukh Acuna MD | | | 2018 | | NEPHROLOGY [place] | [address] [place] | | | | | [address] [place] | [address] [place], [place] | | | | | [address] [place], [place] | [address] | | | | | [address] | | | | | | [phone] | | | +--------+ + + + [...] [facility] | | | | | | [address] [place] | | | | | | [address] | | | | | | | [...] | | | LAB | | | [place] | | | | | + + [...]
--- OUTSIDE RECORDS SUMMARY | ~2019-11-18 | XMS | Encounter Summary ---
Demographics + + + | Address | [address] | | | [place] [address] | + + + | Home Phone [...] Team Providers + +------+ + | Care Heddle Machine Operator Name | Role | Phone [...] + + | 10/06/ | Telephone | [facility] | Farrukh Acuna MD | Other | | 2019 | | NEPHROLOGY [place] | [address] [place] | | | | | [address] [place] | [address] [place], [place] | | | | | [address] [place], [place] | [address] | | | | | [address] | | | | | | [phone] | | | +--------+ + + + [...] [place] | | | | | | [address] | | | | | | (Fax) | | +--------+---------+ + + + documented as of this encounter Visit Diagnoses Not on filedocumented in this encounter"
--- OUTSIDE RECORDS SUMMARY | ~2019-11-18 | XMS | Encounter Summary ---
Demographics + + + | Address | [address] | | | [place] [address] | + + + | Home Phone [...] Team Providers + +------+ + | Care Databases Computer Consultant Name | Role | Phone | [...] | | [address] | [address] [place], [place] | (Primary Dx); Iron | | | | [address] | [address] | deficiency; Anemia | | | | [place], [place] | | of chronic kidney | | | | [address] | | failure, stage 5 | | | | [phone] | | (HCC) | +--------+ + + [...] | | | | | | [address] [place], [place] | | | | | | [address] | | | | | | | [...]
--- OUTSIDE RECORDS SUMMARY | ~2019-11-18 | XMS | Encounter Summary ---
Demographics + + + | Address | [address] | | | [place] [address] | + + + | Home Phone [...] +------+ + | Care Drill Press Operator For Metal Name | Role | Phone | + [...] [address] | | | | | [place], [place] | [place], [place] | | | | | [address] | [address] | | | | | [phone] | [phone] | | | | | | | [...] [facility] | | | | | | [address] [facility] | | | | | | [address] | | | | | | | [...]
--- OUTSIDE RECORDS SUMMARY | ~2019-11-18 | XMS | Encounter Summary ---
Demographics + + + | Address | [address] | | | [place] [address] | + + + | Home Phone [...] Providers + +------+ + | Care Print Production Manager Name | Role | Phone | + +------+ + PCP | Unavailable | + +------+ + Encounter Details +--------+ + + + + | Date | Type | Department | Care Team | Description | +--------+ + + + + | 05/28/ | Hospital | [facility] | Elisabeth, | CORON ATHEROSCL | | 2002 - | Encounter | [facility] | MD Joshua | [facility] | | | | CLINICAL DECISION | [address] | | | 05/29/ | | [address] | [address] [place], [place] | | | 2002 | | [place], [place] | [address] | | | | | [address] | [phone] | | | | | [phone] | | | +--------+ + + + [...] 2019 | Visit | | [address] [facility] | | | | | | [address] [place] | | | | | | [address] | | | | | | | | +--------+---------+ + + + documented as of this encounter Visit Diagnoses + + | Diagnosis | + + | Coronary atherosclerosis of [place] coronary artery | + + documented in this encounter"
--- OUTSIDE RECORDS SUMMARY | ~2019-11-18 | XMS | Encounter Summary ---
Demographics + + + | Address | [address] | | | [place] [address] | + + + | Home Phone [...] Team Providers + +------+ + | Care Otr Company Truck Driver Name | Role | Phone | + +------+ + | Rahul Silva MD | PCP | | + +------+ + Encounter Details +--------+ + + + + | Date | Type | Department | Care Team | Description | +--------+ + + + + | 05/22/ | Orders Only | [facility] | Farrukh Acuna MD | | | 2018 | | NEPHROLOGY [place] | [address] [place] | | | | | [address] [place] | [address] [place], [place] | | | | | [address] [place], [place] | [address] | | | | | [address] | | | | | | [phone] | | | +--------+ + + + [...] [facility] | | | | | | [address] [place] | | | | | | [address] | | | | | | | [...] | | | LAB | | | [place] | | | | | + + [...]
--- OUTSIDE RECORDS SUMMARY | ~2019-11-18 | XMS | Encounter Summary ---
Demographics + + + | Address | [address] | | | [place] [address] | + + + | Home Phone [...] Providers + +------+ + | Care Production Worker Name | Role | Phone | [...] | CLINIC [address] | [place], [place] | | | | | [place], [place] | [address] | | | | | [address] | [phone] | | | | | [phone] | | | +--------+ + + + [...] for the 09/07/19 encounter (Preadmit Visit) with [facility] ROOM 4 Medication Sig Instructions acyclovir (ZOVIRAX) [...] to check-in desk and are in the [place] waiting room. AttachmentsThe following attachments cannot be sent through Care Everywhere.Hemodialysis Ac cess, Creating a (Mosotho)Dialysis, Arteriovenous (AV) Fistula for (Mosotho)documented in th is encounter Plan of Treatment +--------+---------+ + + + | Date | Type | Specialty | Care Team | Description | +--------+---------+ + + + | 12/06/ | Office | Nephrology | Farrukh Acuna MD | | | 2019 | Visit | | [address] [facility] | | | | | | [address] [place], [place] | | | | | | [address] | | | | | | | [...] | | | | | | MDRD [facility] traceable | | | | | | equation.Testing | | | | | | performed at [facility], [address] | | | | | | [facility], | | | | | | [place] [address] | | | | + + + + + + + + | Specimen | + + | Blood | + + + + + + + | Performing | Address | City/State/Zipcode | Phone Number | | Organization | | | | + + + + + | [facility] | [address] | [place] [address] | [phone] | + + + + + CBC [...] 0.09Comment: Testing | 0.00 - 0.10 | [facility] | | | Absolute | performed at [facility], [address] | K/uL | LABORATORY | | | | [place] Diaz, | | | | | | [place] [address] | | | | + + + + + + + + | Specimen | + + | Blood | + + + + + + + | Performing | Address | City/State/Zipcode | Phone Number | | Organization | | | | + + + + + | [facility] | [address] | [place] [address] | [phone] | + + + + + ECG [...]
--- OUTSIDE RECORDS SUMMARY | ~2019-11-18 | XMS | Encounter Summary ---
Demographics + + + | Address | [address] | | | [place] [address] | + + + | Home Phone [...] [place] | | | | | [address] | | + + + + + Care Team Providers + +------+ + | Care Sheet Ironworker Name | Role | Phone | + [...] as of this encounter Progress Notes Interface, Associate Engineer In - 11/10/2006 2:27 AM PSTCLINIC DATE: [...] he embarked on this. Galo Arora M.D. Boilermaker Welder, Plastic and Reconstructive Surgery WOJCIECH / [id number] / [id number] / [id number] cc: Nelson Melara M.D. Anesthesiology. [facility]. [id number] signed by Interface, Associate Engineer In at 11/10/2006 2:27 AM PSTdocume nted in this encounter Plan of Treatment Not on filedocumented as of this encounter Visit Diagnoses Not on filedocumented in this encounter"
--- OUTSIDE RECORDS SUMMARY | ~2019-11-18 | XMS | Encounter Summary ---
Demographics + + + | Address | [address] | | | [place] [address] | + + + | Home Phone [...] Providers + +------+ + | Care Rental Manager Name | Role | Phone | [...] [address] | | | | | [place], [place] | [place], [place] | | | | | [address] | [address] | | | | | [phone] | [phone] | | | | | | | [...] | | | | [address] [facility] | | | | | | [address] | | | | | | | [...]
--- OUTSIDE RECORDS SUMMARY | ~2019-11-18 | XMS | Encounter Summary ---
Demographics + + + | Address | [address] | | | [place] [address] | + + + | Home Phone [...] Team Providers + +------+ + | Care Orthodontist Assistant Name | Role | Phone | + +------+ + | Rahul Silva MD | PCP | | + +------+ + Encounter Details +--------+ + + + + | Date | Type | Department | Care Team | Description | +--------+ + + + + | 10/27/ | Orders Only | [facility] | Conversion | | | 2016 | | NEPHROLOGY [place] | Transaction, | | | | | [address] | Provider Unknown | | | | | [address] [place] | | | | | | [address] | (Fax) | | | | | [phone] | | | +--------+ + + + [...] 2020 | Visit | | [address] [facility] [place] | | | | | | [address] [facility] [place] | | | | | | [address] | | | | | | | [...]
--- OUTSIDE RECORDS SUMMARY | ~2019-11-18 | XMS | Encounter Summary ---
Demographics + + + | Address | [address] | | | [place] [address] | + + + | Home Phone [...] Providers + +------+ + | Care Instructional Consultant Name | Role | Phone | [...] + + | 11/08/ | Documentati | [facility] | Simon, | Results (10/10/19) | | 2019 | on | NEPHROLOGY [place] | [facility] | | | | | [address] | Stream Control Officer | | | | | [address] | | | | | | [place] | | | | | | [address] | | | | | | [phone] | | | +--------+ + + + [...] [place] | | | | | | [address] | | | | | | | [...]
--- OUTSIDE RECORDS SUMMARY | ~2019-11-18 | XMS | Encounter Summary ---
Demographics + + + | Address | [address] | | | [place] [address] | + + + | Home Phone [...] Team Providers + +------+ + | Care Unishear Operator Name | Role | Phone | [...] + + | 09/23/ | Telephone | [facility] | Brian Orosco MD | Advice Only | | 2019 | | VASCULAR SURGERY | [address] | | | | | [address] [place] | [place], [place] | | | | | [place], [place] | [address] | | | | | [address] | [phone] | | | | | [phone] | | | +--------+ + + + [...] [place] | | | | | | [address] | | | | | | (Fax) | | +--------+---------+ + + + documented as of this encounter Visit Diagnoses Not on filedocumented in this encounter"
--- OUTSIDE RECORDS SUMMARY | ~2019-11-18 | XMS | Encounter Summary ---
Demographics + + + | Address | [address] | | | [place] [address] | + + + | Home Phone [...] Team Providers + +------+ + | Care Musical Performer Name | Role | Phone | [...] (OTHER) | | 2019 | Procedure | [facility] | [address] | | | | | OPERATING RO[address] | [address] [address] [place], [place] | | | | [address] | [address] | | | | | [place], [place] | [phone] | | | | | [address] | | | | | | [phone] | | | +--------+ + + + [...] | | | | | | [address] [place] | | | | | | [address] | | | | | | | | +--------+---------+ + + + documented as of this encounter Visit Diagnoses Not on filedocumented in this encounter"
--- OUTSIDE RECORDS SUMMARY | ~2019-11-18 | XMS | Encounter Summary ---
Demographics + + + | Address | [address] | | | [place] [address] | + + + | Home Phone [...] [place] | | | | | [address] | | + + + + + Care Team Providers + +------+ + | Care Environmental Compliance Engineer Name | Role | Phone | + +------+ + PCP | Unavailable | + +------+ + Encounter Details +--------+ + + + + | Date | Type | Department | Care Team | Description | +--------+ + + + + | 04/06/ | Procedure - | [facility] | Record, Operation | Operative Report | | 1997 | | [facility] [address] | | | | | Transcribed | Ruben Linares | | | | | | Mailcode: [facility] | | | | | | [facility] | | | | | | Healing, [address] | | | | | | [facility] [place] | | | | | | [address] | | | | | | [phone] | | | +--------+ + + + [...] 04/06/1998 12:00 AM PDT [place] | | [facility] | | [address] [place], [place] [address] | | [facility] | | | | OPERATION RECORD | | | | Med Rec No.: [id number] Date: 04/06/98 | | | | Name: Con Kavon Morris | | | | | | ATTENDING SURGEON: | | Galo Arora M.D. | | [facility], | | Division of Plastic & | | Reconstructive Surgery | | MACHINE SHOP SUPERVISOR(S): | | Barry Fofana M.D. | | [...] | | Galo Arora M.D. | | [facility], | | Division of Plastic & | | Reconstructive Surgery | | WOJCIECH/pita | | | | P | | C: 05/12/98 lv | | cc: | | | + + documented in this encounter Visit Diagnoses Not on filedocumented in this encounter"
--- OUTSIDE RECORDS SUMMARY | ~2019-11-18 | XMS | Encounter Summary ---
Demographics + + + | Address | [address] | | | [place] [address] | + + + | Home Phone [...] Providers + +------+ + | Care Electrician Wiring Name | Role | Phone | + [...] | | | hip | [address] | | | | | | fracture, | [place] | | | | | | initial | [place], [place] | | | | | | encounter | [id number] | | | | | | ([facility]) | Phone: | | | | | | Status post | [phone] | | | | | | above knee | Fax: | | | | | | amputation | [phone] | | | | | | of [...] | | ([facility]) | | | | | | | | | | | | | | | | | +--------+--------+ + + + + Encounter Details +--------+ + + + + | Date | Type | Department | Care Team | Description | +--------+ + + + + | 08/03/ | Hospital | [facility] | Jose Andrade | Laceration of left | | 2016 - | Encounter | MED CTR SURGICAL | MD Mehrdad [address] | ear, initial | | | | [address] [place] | [address] [place] | encounter (Primary | | 08/05/ | | [place] [address] | [place] [address] | Dx); Closed left hip | | 2016 | | [phone] | [phone] | fracture, initial | | | | | | encounter ([facility]); | | | | | Guillermo Atkins, | Fall, initial | | | | | DO [address] | encounter; Acute | | | | | [place] [address] [place], | pain; Hyperkalemia; | | | | | [place] [address] | CKD (chronic kidney | | | | | [phone] | disease), | | | | | [...] | | | | encounter ([facility]); | | | | | | PAOLO on CPAP; Status | | | | | | post fall; Status | | | | | | 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 Name/Age/: Kavon Andujar [...] mg by mouth nightly. aka: LIPITOR Cholecalciferol 31757 units Caps Take 50,000 Units by mouth [...] in 7-10 days Contact information: [address] [facility] [address] [place] [id number] PENDING RESULTS: HOSPITAL COURSE: Please refer to [...] signed by: Petey Bolivar MD, 08/05/2016 13:[address] [facility] Portions of this chart may have been created with [employer] voice recognition software. Occasi onal wrong-word or sound-alike substitutions may have occurred due to the inherent vanegas itations of voice recognition software. Please read the chart carefully and recognize, using context, where these substitutions have occurred documented in this encounter Discharge Instructions Instructions Maritza Devries RN - 08/05/2016Please call Dr. Tobar at [phone] for an y questions or concerns regarding [...] 0 | | | | (VITAMIN D-3) [address] | mouth Every 3 | | | [...] might be differ ent from the original. [facility] [facility] [facility] Hospitalist Progress Note Kavon Andujar is [...] Clear Clear PH UA 5.0 5.0-8.0 Specific [place] 1.015 1.001-1.030 PROTEIN UA 100 mg/dL (A) [...] as outlined above. Sonu Michel 08/04/2016 11:33 [facility] Yuriy Farrell RRT - 08/04/2016 8:42 [...] 2019 | Visit | | [address] [facility] | | | | | | [address] [place], [place] | | | | | | [address] | | | | | | | [...] | | | | encounter ([facility]) | 08/04/2016 | | | | | Status post above | | | | | | knee amputation of | | | | | | left lower extremity | | | | | | ([facility]) | | + +------+--------+ + + | DME: Walker | DME | Routin | Closed left hip | Ordered: 08/05/2016 | | | | e | fracture, initial | | | | | | encounter ([facility]) | | | | | | Status post above | | | | | | knee amputation of | | | | | | left lower extremity | | | | | | ([facility]) | | + +------+--------+ + + documented [...] | | POC | | | [facility] | | | | | | MEDICAL | | | | | | CENTER - | | | | | | LABORATORY | | + +---------+ + + + + + | Specimen | + + | Blood | + + + + + + + | Performing | Address | City/State/[facility] | Phone Number | | Organization | | | | + + + + + | [facility] | [address] | [place] | [phone] | | [facility] | | [address] | | | - LABORATORY | | [...] 1.80 (H) | 0.60 - 1.30 | [facility] | | | | mg/dL | [facility] | | | | | | MEDICAL | | | | | | CENTER - | | | | | | LABORATORY | | + + + + + + | eGFR if not | 37 (L)Comment: | >=60 | [place] | | | | GLOMERULAR FILTRATION | mL/min/1.73m2 | [facility] | | | STATELESS | RATE,ESTIMATED | | MEDICAL | | | | mL/min/1.93r2Rlbl than | | CENTER - | | [...] + | [address] | [address] | [place] | [phone] | | [facility] | | [address] | | | - LABORATORY | | [...] [address] | [place] | [phone] | | [facility] | | [address] | | | - LABORATORY | | [...] [address] | [place] | [phone] | | [facility] | | [address] | | | - LABORATORY | | [...] [address] | [place] | [phone] | | [facility] | | [address] | | | - LABORATORY | | [...] [address] | [place] | [phone] | | [facility] | | [address] | | | - LABORATORY | | [...] [address] | [place] | [phone] | | [facility] | | [address] | | | - LABORATORY | | [...] + | [facility] | [address] | [place] | [phone] | | [facility] | | [address] | | | - LABORATORY | | [...] ST. | [address] | [place], [place] | [phone] | | [facility] | | [address] | | | - LABORATORY | | [...] + | [facility] | [address] | [place] | [phone] | | [facility] | | [address] | | | - LABORATORY | | [...] [address] | [place] | [phone] | | [facility] | | [address] | | | - LABORATORY | | [...] mL/min/1.73m2 | [facility] | | | STATELESS | RATE,ESTIMATED | | MEDICAL | | | | mL/min/1.22i9Nybi than | | CENTER - | | [...] [address] | [place] | [phone] | | [facility] | | [address] | | | - LABORATORY | | [...] - 1.030 | [facility] | | | [place] | | | [facility] | | [...] [address] | [place] | [phone] | | [facility] | | [address] | | | - LABORATORY | | [...] | | | | AYAH RON MD ([id number]) | | | | | | on [...] + | [facility] | [address] | [place] | [phone] | | [facility] | | [address] | | | - LABORATORY | | [...] [address] | [place] | [phone] | | [facility] | | [address] | | | - LABORATORY | | [...] [address] | [place] | [phone] | | [facility] | | [address] | | | - LABORATORY | | [...] [address] | [place] | [phone] | | [facility] | | [address] | | | - LABORATORY | | [...] ST. | [address] | [place] | [phone] | | [facility] | | [address] | | | - LABORATORY | | [...] | | GLOMERULAR FILTRATION | mL/min/1.73m2 | [facility] | | | STATELESS | RATE,ESTIMATED | | MEDICAL | | | | mL/min/1.67o2Unvu than | | CENTER - | | [...] + | [facility] | [address] | [place] | [phone] | | [facility] | | [address] | | | - LABORATORY | | [...] | | | | | | | 7613-3769 Use NIGHT DOSE for | | | | | | | doses scheduled: HS, 3AM, | | | | | | | Nighttime 8298-7963, | | | | | | + [...] | +---+---+ + +-------+ +---------+---+ + | ldnaoah-lbrplqtmqt-pkuxmmapp | Given | 08/03/20 | 0.5 mLs [...]
--- OUTSIDE RECORDS SUMMARY | ~2019-11-18 | XMS | Encounter Summary ---
Demographics + + + | Address | [address] | | | [place] [address] | + + + | Home Phone [...] Team Providers + +------+ + | Care Violin Teacher Name | Role | Phone | + +------+ + | Rahul Silva MD | PCP | | + +------+ + Encounter Details +--------+ + + + + | Date | Type | Department | Care Team | Description | +--------+ + + + + | 11/10/ | Orders Only | [facility] | Conversion | | | 2017 | | NEPHROLOGY CONNIE | Transaction, | | | | | [address] | Provider Unknown | | | | | [address] [place] | | | | | | [address] | (Fax) | | | | | [phone] | | | +--------+ + + + [...] HOSPITAL[facility] | | | | | | [address] | | | | | | | [...]
--- OUTSIDE RECORDS SUMMARY | ~2019-11-18 | XMS | Encounter Summary ---
Demographics + + + | Address | [address] | | | [place] [address] | + + + | Home Phone [...] [place] | | | | | [address] | | + + + + + Care Team Providers + +------+ + | Care Mangle Press Catcher Name | Role | Phone | + [...] Rd | | | | | | [place] | | | | | | [address] | | | +--------+ + + + [...] as of this encounter Discharge Summaries Interface, Wood Finisher In - 04/01/2007 5:08 AM PDT [address] [address] [facility] MEDICAL SUMMARY OF HOSPITALIZATION [...] Clinic NK:freddie A cc: RUBIA KNAPP MD [address] [facility] [address] documented in this encounter Plan of Treatment Not on filedocumented as of this encounter Visit Diagnoses Not on filedocumented in this encounter"
--- OUTSIDE RECORDS SUMMARY | ~2019-11-18 | XMS | Encounter Summary ---
Demographics + + + | Address | [address] | | | [place] [address] | + + + | Home Phone [...] Providers + +------+ + | Care Mailroom Manager Name | Role | Phone | + +------+ + | Rahul Silva MD | PCP | | + +------+ + Encounter Details +--------+ + + + + | Date | Type | Department | Care Team | Description | +--------+ + + + + | 07/14/ | Orders Only | [facility] | Conversion | | | 2018 | | NEPRHOLOGY PAIGE | Transaction, | | | | | [address] | Provider Unknown | | | | | [address] [place], [place] | [phone] | | | | | [address] | (Fax) | | | | | [phone] | | | +--------+ + + + [...] | | | | | | [address] | | | | | | [address] | | | | | | | [...]
--- OUTSIDE RECORDS SUMMARY | ~2019-11-18 | XMS | Clinical Summary ---
[...] Author + + + | Author | [facility] | + + + | Organization | [facility] | + + + | Address | Unknown | + + + | Phone | Unavailable | + + + Support + + + + + | Name | Relationship | Address | Phone | + + + + + | Darci Andujar | VALERIE | [place] | | | | | [address] | | + + + + + Care Team Providers + +------+ + | Care Facetor Name | Role | Phone | + +------+ + | Rahul Silva MD | PCP | | + +------+ + Source Comments [place] [facility] Allergies No Known Allergies Medications [...]
--- OUTSIDE RECORDS SUMMARY | ~2019-11-18 | XMS | Encounter Summary ---
Demographics + + + | Address | [address] | | | [place] [address] | + + + | Home Phone [...] Team Providers + +------+ + | Care Welding Machine Operator Submerged Arc Name | Role | Phone | + +------+ + | Rahul Silva MD | PCP | | + +------+ + Encounter Details +--------+ + + + + | Date | Type | Department | Care Team | Description | +--------+ + + + + | 01/26/ | Orders Only | [facility] | Conversion | | | 2014 | | NEPRHOLOGY PAIGE | Transaction, | | | | | [address] | Provider Unknown | | | | | [address] [place], [place] | | | | | | [address] | (Fax) | | | | | [phone] | | | +--------+ + + + [...] [place] | | | | | | [address] | | | | | | | [...]
--- OUTSIDE RECORDS SUMMARY | ~2019-11-18 | XMS | Encounter Summary ---
Demographics + + + | Address | [address] | | | [place] [address] | + + + | Home Phone [...] Team Providers + +------+ + | Care Relay Assembler Name | Role | Phone | + +------+ + | Rahul Silva MD | PCP | | + +------+ + Encounter Details +--------+ + + + + | Date | Type | Department | Care Team | Description | +--------+ + + + + | 10/27/ | Orders Only | [facility] | Conversion | | | 2016 | | NEPHROLOGY CONNIE | Transaction, | | | | | [address] | Provider Unknown | | | | | [address] [place] | | | | | | [address] | (Fax) | | | | | [phone] | | | +--------+ + + + [...] 2020 | Visit | | [address] [facility] [address] | | | | | | [address] [facility] [place] | | | | | | [address] | | | | | | | [...]
--- OUTSIDE RECORDS SUMMARY | ~2019-11-18 | XMS | Encounter Summary ---
Demographics + + + | Address | [address] | | | [place] [address] | + + + | Home Phone [...] [place] | | | | | [address] | | + + + + + Care Team Providers + +------+ + | Care Engineer And Geologist Name | Role | Phone | + [...] | | | | | | [facility] | | | | | | [place] [address] | | | | | | [phone] | | | +--------+ + + + [...] as of this encounter Progress Notes Interface, Cert Pharmacy Tech In - 01/03/2007 5:08 AM PST [address] [address] Department of Orthopaedics, [facility] OP19 December 21, 1997 Jerry Smiley M.D. [address] [place] [id number] RE:Kavon Andujar MR#:[id number] Smiley: Thank [...] Carlson might like. Sincerely, Eric Mcclure M.D. Washer Engineer, Department of Orthopaedics and Rehabilitation ERICK/sara A documented in this encounter Plan of Treatment Not on filedocumented as of this encounter Visit Diagnoses Not on filedocumented in this encounter"
--- OUTSIDE RECORDS SUMMARY | ~2019-11-18 | XMS | Encounter Summary ---
Demographics + + + | Address | [address] | | | [place] [address] | + + + | Home Phone [...] Team Providers + +------+ + | Care Conference Assistant Name | Role | Phone | + +------+ + | Rahul Silva MD | PCP | | + +------+ + Encounter Details +--------+ + + + + | Date | Type | Department | Care Team | Description | +--------+ + + + + | 12/19/ | Orders Only | [facility] | Conversion | | | 2016 | | NEPHROLOGY CONNIE | Transaction, | | | | | [address] | Provider Unknown | | | | | [address] [place] | | | | | | [address] | (Fax) | | | | | [phone] | | | +--------+ + + + [...] HOSPITAL[facility] | | | | | | [address] | | | | | | | [...]
--- OUTSIDE RECORDS SUMMARY | ~2019-11-18 | XMS | Encounter Summary ---
Demographics + + + | Address | [address] | | | [place] [address] | + + + | Home Phone [...] Providers + +------+ + | Care Vending Supervisor Name | Role | Phone | [...] [address] | [place], [place] | GFR less than 15 | | | | [place], [place] | [address] | ml/min (HCC) | | | | [address] | | (Primary Dx) | | | | [phone] | Brian Orosco MD | | | | | | [address] | | | | | | [place], [place] | | | | | | [address] | | | | | | [phone] | | | | | | | [...] CV: No peripheral edema, rate regular SKIN: [place], warm, dry without rash/lesion MS: ROM not [...] 2019 | Visit | | [address] [facility] | | | | | | [address] [place], [place] | | | | | | [address] | | | | | | | [...]
--- OUTSIDE RECORDS SUMMARY | ~2019-11-18 | XMS | Encounter Summary ---
Demographics + + + | Address | [address] | | | [place] [address] | + + + | Home Phone [...] Providers + +------+ + | Care Manager General Name | Role | Phone | + +------+ + | Rahul Silva MD | PCP | | + +------+ + Encounter Details +--------+ + + + + | Date | Type | Department | Care Team | Description | +--------+ + + + + | 09/07/ | Preadmit | [facility] | Brian Orosco MD | | | 2019 | Visit | CENTER PREADMIT | [address] | | | | | CLINIC [address] | [place], [place] | | | | | [place], [place] | [address] | | | | | [address] | [phone] | | | | | [phone] | | | +--------+ + + + [...] for the 09/07/19 encounter (Preadmit Visit) with [facility] ROOM 4 Medication Sig Instructions acyclovir [...] to check-in desk and are in the [facility] waiting room. AttachmentsThe following attachments cannot be sent through Care Everywhere.Hemodialysis Ac cess, Creating a ([place])Dialysis, Arteriovenous (AV) Fistula for ([place])documented in th is encounter Plan of Treatment +--------+---------+ + + + | Date | Type | Specialty | Care Team | Description | +--------+---------+ + + + | 12/06/ | Office | Nephrology | Farrukh Acuna MD | | | 2019 | Visit | | [address] [facility] | | | | | | [address] [place], [place] | | | | | | [address] | | | | | | | [...] | | | | | | [facility] traceable | | | | | | equation.Testing | | | | | | performed at [facility], [address] | | | | | | [facility], | | | | | | [place] [address] | | | | + + + + + + + + | Specimen | + + | Blood | + + + + + + + | Performing | Address | City/State/Zipcode | Phone Number | | Organization | | | | + + + + + | [facility] | [address] | [place] [address] | [phone] | + + + + + CBC [...] 0.09Comment: Testing | 0.00 - 0.10 | [facility] | | | Absolute | performed at [facility], [address] | K/uL | LABORATORY | | | | [address], | | | | | | [place] [address] | | | | + + + + + + + + | Specimen | + + | Blood | + + + + + + + | Performing | Address | City/State/Zipcode | Phone Number | | Organization | | | | + + + + + | [facility] | [address] | [place] [address] | [phone] | + + + + + ECG [...]
--- OUTSIDE RECORDS SUMMARY | ~2019-11-18 | XMS | Encounter Summary ---
Demographics + + + | Address | [address] | | | [place] [address] | + + + | Home Phone [...] | [facility] | | | [...] + +------+ + | Care Customer Service Coordinator Name | Role | Phone [...] | Telephone | [facility] | Jason Sandy D, | Appointment | | 2018 | | VASCULAR SURGERY | RN | | | | | [address] | | | | | | [place] | | | | | | [address] | | | | | | [phone] | | | +--------+ + + + [...] [facility] | | | | | | [address] [place] | | | | | | [address] | | | | | | | | +--------+---------+ + + + documented as of this encounter Visit Diagnoses Not on filedocumented in this encounter"
--- OUTSIDE RECORDS SUMMARY | ~2019-11-18 | XMS | Encounter Summary ---
Demographics + + + | Address | [address] | | | [place] [address] | + + + | Home Phone [...] Providers + +------+ + | Care Board Writer Name | Role | Phone | + +------+ + PCP | Unavailable | + +------+ + Encounter Details +--------+ + + + + | Date | Type | Department | Care Team | Description | +--------+ + + + + | 05/28/ | Hospital | [facility] | Elisabeth, | CORON ATHEROSCL | | 2002 - | Encounter | [facility]ENTER | MD Joshua | [facility] | | | | CLINICAL DECISION | [address] [place] | | | 05/29/ | | [address] | [address] [place], [place] | | | 2002 | | [place], [place] | [address] | | | | | [address] | [phone] | | | | | [phone] | | | +--------+ + + + [...] [place] | | | | | | [address] | | | | | | | | +--------+---------+ + + + documented as of this encounter Visit Diagnoses + + | Diagnosis | + + | Coronary atherosclerosis of nez perce coronary artery | + + documented in this encounter"
--- OUTSIDE RECORDS SUMMARY | ~2019-11-18 | XMS | Encounter Summary ---
Demographics + + + | Address | [address] | | | [place] [address] | + + + | Home Phone [...] Team Providers + +------+ + | Care Vtc Technician Name | Role | Phone | + +------+ + | Rahul Silva MD | PCP | | + +------+ + Encounter Details +--------+ + + + + | Date | Type | Department | Care Team | Description | +--------+ + + + + | 11/10/ | Orders Only | [facility] | Conversion | | | 2017 | | NEPHROLOGY CONNIE | Transaction, | | | | | [address] | Provider Unknown | | | | | [address] [place] | | | | | | [address] | (Fax) | | | | | [phone] | | | +--------+ + + + [...] | | | | | [address] [facility] | | | | | | [address] | | | | | | | [...]
--- OUTSIDE RECORDS SUMMARY | ~2019-11-18 | XMS | Encounter Summary ---
Demographics + + + | Address | [address] | | | [place] [address] | + + + | Home Phone [...] Providers + +------+ + | Care Film Spooler Name | Role | Phone | [...] + + | 09/03/ | Telephone | [facility] | Simon, | Lab Results | | 2019 | | NEPHROLOGY CONNIE | [facility] | | | | | [address] | Offline Cutter | | | | | [address] [place], [place] | | | | | | [address] | | | | | | [phone] | | | +--------+ + + + [...] 2020 | Visit | | [address] [facility] | | | | | | [address] [place] | | | | | | [address] | | | | | | | | +--------+---------+ + + + documented as of this encounter Visit Diagnoses Not on filedocumented in this encounter"
--- OUTSIDE RECORDS SUMMARY | ~2019-11-18 | XMS | Encounter Summary ---
Demographics + + + | Address | [address] | | | [place] [address] | + + + | Home Phone [...] Providers + +------+ + | Care Senior Infrastructure Engineer Name | Role | Phone | [...] | [address] | [address] [facility] [address] | | | | | [place], [place] | [address] [place] | | | | | [address] | [address] | | | | | [phone] | | | +--------+ + + + [...] [place] | | | | | | [address] | | | | | | | [...]
--- OUTSIDE RECORDS SUMMARY | ~2019-11-18 | XMS | Encounter Summary ---
Demographics + + + | Address | [address] | | | [place] [address] | + + + | Home Phone [...] Team Providers + +------+ + | Care Flow Worker Name | Role | Phone | [...] + + | 10/20/ | Telephone | [facility] | Alfred, | Mary (Tera F/U) | | 2018 | | NEPHROLOGY BASSEM | [facility] | | | | | [address] | Credit Control Manager | | | | | [address] | | | | | | [place] | | | | | | [address] | | | | | | [phone] | | | +--------+ + + + [...] | | | | [address] [facility] [place] | | | | | | [address] | | | | | | | | +--------+---------+ + + + documented as of this encounter Visit Diagnoses Not on filedocumented in this encounter"
--- OUTSIDE RECORDS SUMMARY | ~2019-11-18 | XMS | Encounter Summary ---
Demographics + + + | Address | [address] | | | [place] [address] | + + + | Home Phone [...] Team Providers + +------+ + | Care Convex Grinder Name | Role | Phone | + +------+ + PCP | Unavailable | + +------+ + Encounter Details +--------+ + + + + | Date | Type | Department | Care Team | Description | +--------+ + + + + | 08/02/ | [facility] | [facility] | Nelson Lutz MD | | | 1991 | Encounter | MED CTR GENERIC OP | [address] [place] | | | | | CONV DEPT [address] | [address] [place] | | | | | [address], | [address] | | | | | [place] [address] | | | | | | [phone] | | | +--------+ + + + [...] | | | | | | [address] [place] | | | | | | [address] | | | | | | | | +--------+---------+ + + + documented as of this encounter Visit Diagnoses Not on filedocumented in this encounter"
--- OUTSIDE RECORDS SUMMARY | ~2019-11-18 | XMS | Encounter Summary ---
Demographics + + + | Address | [address] | | | [place] [address] | + + + | Home Phone [...] Providers + +------+ + | Care Sales Support Engineer Name | Role | Phone | + +------+ + | Rahul Silva MD | PCP | | + +------+ + Encounter Details +--------+ + + + + | Date | Type | Department | Care Team | Description | +--------+ + + + + | 11/27/ | Orders Only | [facility] | Conversion | | | 2017 | | NEPHROLOGY [facility] | Transaction, | | | | | [address] | Provider Unknown | | | | | [address] [place] | | | | | | [address] | (Fax) | | | | | [phone] | | | +--------+ + + + [...] | | | | | | [address] [facility] | | | | | | [address] | | | | | | | [...]
--- OUTSIDE RECORDS SUMMARY | ~2019-11-18 | XMS | Encounter Summary ---
Demographics + + + | Address | [address] | | | [place] [address] | + + + | Home Phone [...] Providers + +------+ + | Care Forest Fire Warden Name | Role | Phone | + +------+ + | Rahul Silva MD | PCP | | + +------+ + Encounter Details +--------+ + + + + | Date | Type | Department | Care Team | Description | +--------+ + + + + | 07/20/ | Orders Only | [facility] | Farrukh Acuna MD | Stage 4 chronic | | 2019 | | NEPHROLOGY [place] | [address] [place] | kidney disease (HCC) | | | | [address] | [address] [place], [place] | (Primary Dx); | | | | [address] | [address] | Persistent | | | | [place], [place] | | proteinuria; | | | | [address] | | Secondary | | | | [phone] | | hyperparathyroidism | | | | [...] | | | | | | [address] [place] | | | | | | [address] | | | | | | | [...]
--- OUTSIDE RECORDS SUMMARY | ~2019-11-18 | XMS | Encounter Summary ---
Demographics + + + | Address | [address] | | | [place] [address] | + + + | Home Phone [...] Team Providers + +------+ + | Care Model Builder Name | Role | Phone | [...] | | | ([facility]LY [facility]) | [place] | | | | | | Procedures | [address] | | | | | | VAS Arm | Phone: | | | | | | Bilateral | [phone] | | | | | | Mapping For | Fax: | | | | | | Dialysis | [phone] | | +--------+--------+ + + + + Encounter Details +--------+ + + + + | Date | Type | Department | Care Team | Description | +--------+ + + + + | 08/20/ | Hospital | [facility] | Trisha Conner, DNP | 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 | VASCULAR SURGERY | [address] | renal disease) ([facility]) | | | | ULTRASOUND [address] | [place] | | | | | [address] | [address] | | | | | [place] | | | | | | [address] | | | | | | [phone] | | | +--------+ + + + [...] | | | | ([facility]), Secondary | | | | | | | hyperparathyroidism | | | | | | | ([facility]) | | | | | [...] | | | | | | [address] [place], [place] | | | | | | [address] | | | | | | | [...] | | | | | Signed by: rPavin Abreu Chet | | Sign Date/Time: 08/20/2019 [...]
--- OUTSIDE RECORDS SUMMARY | ~2019-11-18 | XMS | Encounter Summary ---
Demographics + + + | Address | [address] | | | [place] [address] | + + + | Home Phone [...] Team Providers + +------+ + | Care Chlorobutadiene Scrubber Operator Name | Role | Phone | + +------+ + | Rahul Silva MD | PCP | | + +------+ + Encounter Details +--------+ + + + + | Date | Type | Department | Care Team | Description | +--------+ + + + + | 12/16/ | Orders Only | [facility] | Conversion | | | 2016 | | NEPHROLOGY [place] | Transaction, | | | | | [address] | Provider Unknown | | | | | [address] [place] | | | | | | [address] | (Fax) | | | | | [phone] | | | +--------+ + + + [...] | | | | [address] [facility] | | | | | | [address] | | | | | | | [...]
--- OUTSIDE RECORDS SUMMARY | ~2019-11-18 | XMS | Encounter Summary ---
Demographics + + + | Address | [address] | | | [place] [address] | + + + | Home Phone [...] [place] | | | | | [address] | | + + + + + Care Team Providers + +------+ + | Care Frame Tender Name | Role | Phone | [...] Clinic | | | | | | [facility], [address] | | | | | | [place], [place] | | | | | | [address] | | | | | | [phone] | | | +--------+ + + + [...] as of this encounter Progress Notes Interface, Grain Picker In - 12/25/2006 5:[address] [facility] CLINIC DATE: 03/16/98 PLASTIC SURGERY CLINIC [...] in the near future. Galo Arora M.D. Applications Analyst, Division of Plastic & Reconstructive Surgery AYDEE/alfred documented in this encounter Plan of Treatment Not on filedocumented as of this encounter Visit Diagnoses Not on filedocumented in this encounter"
--- OUTSIDE RECORDS SUMMARY | ~2019-11-18 | XMS | Encounter Summary ---
Demographics + + + | Address | [address] | | | [place] [address] | + + + | Home Phone [...] Team Providers + +------+ + | Care Market Development Manager Name | Role | Phone | + +------+ + | Rahul Silva MD | PCP | | + +------+ + Encounter Details +--------+ + + + + | Date | Type | Department | Care Team | Description | +--------+ + + + + | 11/10/ | Orders Only | [facility] | Farrukh Acuna MD | | | 2017 | | NEPHROLOGY [place] | [address] [place] | | | | | [address] [place] | [address] [place], [place] | | | | | [address] [place], [place] | [address] | | | | | [address] | | | | | | [phone] | | | +--------+ + + + [...] [place] | | | | | | [address] | | | | | | | [...] | | | LAB | | | [facility] | | | | | + + [...]
--- OUTSIDE RECORDS SUMMARY | ~2019-11-18 | XMS | Encounter Summary ---
Demographics + + + | Address | [address] | | | [place] [address] | + + + | Home Phone [...] Providers + +------+ + | Care Gold Charmer Name | Role | Phone | + [...] | | | hip | [address] | | | | | | fracture, | [place] | | | | | | initial | [place], [place] | | | | | | encounter | [address] | | | | | | ([facility]) | Phone: | | | | | | Status post | [phone] | | | | | | above knee | Fax: | | | | | | amputation | [phone] | | | | | | of [...] | | | | | | | ([facility]) | | | | | | | | | | | | | | | | | +--------+--------+ + + + + Encounter Details +--------+ + + + + | Date | Type | Department | Care Team | Description | +--------+ + + + + | 08/03/ | Hospital | [facility] | Jose Andrade | Laceration of left | | 2016 - | Encounter | MED CTR SUR[facility]ICAL | MD Mehrdad [address] | ear, initial | | | | [address] [place] | [address] [place] | encounter (Primary | | 08/05/ | | [place] [address] | [place] [address] | Dx); Closed left hip | | 2016 | | [phone] | [phone] | fracture, initial | | | | | | encounter ([facility]); | | | | | Guillermo Atkins, | Fall, initial | | | | | DO [address] | encounter; Acute | | | | | [address] [place], | pain; Hyperkalemia; | | | | | [place] [address] | CKD (chronic kidney | | | | | [phone] | disease), | | | | | [...] | | | | | | encounter ([facility]); | | | | | | PAOLO on CPAP; Status | | | | | | post fall; Status | | | | | | 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 Name/Age/: Kavon Andujar [...] mg by mouth nightly. aka: LIPITOR Cholecalciferol 28696 units Caps Take 50,000 Units by mouth [...] in 7-10 days Contact information: [address] [place] [id number] PENDING RESULTS: HOSPITAL COURSE: Please refer to [...] by: Petey Bolivar MD, 08/05/2016 13:07 [facility] Portions of this chart may have been created with [employer] voice recognition software. Occasi onal wrong-word or sound-alike substitutions may have occurred due to the inherent vanegas itations of voice recognition software. Please read the chart carefully and recognize, using context, where these substitutions have occurred documented in this encounter Discharge Instructions Instructions Maritza Devries RN - 08/05/2016Please call Dr. Tobar at [phone] for an y questions or concerns regarding [...] 0 | | | | (VITAMIN D-3) [address] | mouth Every 3 | | | [...] might be differ ent from the original. [facility] Hospitalist Progress Note Kavon Andujar is a [...] Clear Clear PH UA 5.0 5.0-8.0 Specific [place] 1.015 1.001-1.030 PROTEIN UA 100 mg/dL (A) [...] as outlined above. Sonu Michel 08/04/2016 11:33 [facility] Yuriy Farrell RRT - 08/04/2016 8:42 [...] | | | | | [address] [place], [place] | | | | | | [address] | | | | | | | [...] until | | | | | encounter ([facility]) | 08/04/2016 | | | | | Status post above | | | | | | knee amputation of | | | | | | left lower extremity | | | | | | ([facility]) | | + +------+--------+ + + | DME: Walker | DME | Routin | Closed left hip | Ordered: 08/05/2016 | | | | e | fracture, initial | | | | | | encounter ([facility]) | | | | | | Status post above | | | | | | knee amputation of | | | | | | left lower extremity | | | | | | ([facility]) | | + +------+--------+ + [...] | | POC | | | [facility] | | | | | | MEDICAL | | | | | | CENTER - | | | | | | LABORATORY | | + +---------+ + + + + + | Specimen | + + | Blood | + + + + + + + | Performing | Address | City/State/[facility] | Phone Number | | Organization | | | | + + + + + | [facility] | [address] | [place] | [phone] | | [facility] | | [address] | | | - LABORATORY | | [...] 1.80 (H) | 0.60 - 1.30 | [facility] | | | | | mg/dL | [facility] | | | | | | MEDICAL | | | | | | CENTER - | | | | | | LABORATORY | | + + + + + + | eGFR if not | 37 (L)Comment: | >=60 | [facility] | | | | GLOMERULAR FILTRATION | mL/min/1.73m2 | [facility] | | | [place] | RATE,ESTIMATED | | MEDICAL | | | | mL/min/1.87o8Ldcl than | | CENTER - | | [...] + | [facility] | [address] | [place] | [phone] | | [facility] | | [address] | | | - LABORATORY | | [...] [address] | [place] | [phone] | | [facility] | | [address] | | | - LABORATORY | | [...] | [address] | [place] | [phone] | | [facility] | | [address] | | | - LABORATORY | | [...] [address] | [place] | [phone] | | [facility] | | [address] | | | - LABORATORY | | [...] [address] | [place] | [phone] | | [facility] | | [address] | | | - LABORATORY | | [...] [address] | [place] | [phone] | | [facility] | | [address] | | | - LABORATORY | | [...] + | [facility] | [address] | [place] | [phone] | | [facility] | | [address] | | | - LABORATORY | | [...] ST. | [address] | [place], [place] | [phone] | | [facility] | | [address] | | | - LABORATORY | | [...] + | [facility] | [address] | [place] | [phone] | | [facility] | | [address] | | | - LABORATORY | | [...] [address] | [place] | [phone] | | [facility] | | [address] | | | - LABORATORY | | [...] mL/min/1.73m2 | [facility] | | | [place] | RATE,ESTIMATED | | MEDICAL | | | | mL/min/1.87e2Rgjz than | | CENTER - | | [...] [address] | [place] | [phone] | | [facility] | | [address] | | | - LABORATORY | | [...] - 1.030 | [facility] | | | [place] | | | [facility] | | [...] [address] | [place] | [phone] | | [facility] | | [address] | | | - LABORATORY | | [...] | | | | AYAH RON MD ([id number]) | | | | | | on [...] + | [facility] | [address] | [place] | [phone] | | [facility] | | [address] | | | - LABORATORY | | [address] | [place] | [phone] | | [facility] | | [address] | | | - LABORATORY | | [...] [address] | [place] | [phone] | | [facility] | | [address] | | | - LABORATORY | | [...] [address] | [place] | [phone] | | [facility] | | [address] | | | - LABORATORY | | [...] ST. | [address] | [place] | [phone] | | [facility] | | [address] | | | - LABORATORY | | [...] | | GLOMERULAR FILTRATION | mL/min/1.73m2 | [facility] | | | [place] | RATE,ESTIMATED | | MEDICAL | | | | mL/min/1.11m8Zcza than | | CENTER - | | [...] + | [facility] | [address] | [place] | [phone] | | [facility] | | [address] | | | - LABORATORY | | [...] | | | | | | | 4651[address]4496 Use NIGHT DOSE for | | | | | | | doses scheduled: HS, 3AM, | | | | | | | Nighttime 9505-4064, | | | | | | + [...] | +---+---+ + +-------+ +---------+---+ + | yfeghjj-zwzexcdyjv-uppgkswmr | Given | 08/03/20 | 0.5 mLs [...]
--- OUTSIDE RECORDS SUMMARY | ~2019-11-18 | XMS | Encounter Summary ---
Demographics + + + | Address | [address] | | | [place] [address] | + + + | Home Phone [...] [facility] Abrhaam | | | and [...] Providers + +------+ + | Care Junior Programmer Analyst Name | Role | Phone [...] E | | | | | | ([facility]) | [place], [place] | | | | | | Procedures | [address] | | | | | | VAS Arm | Phone: | | | | | | Bilateral | [phone] | | | | | | Mapping For | Fax: | | | | | | Dialysis | [phone] | | +--------+--------+ + + + + Reason for Visit + + + | Reason | Comments | + + + | Referral Consult | | + + + Encounter Details +--------+ + + + + | Date | Type | Department | Care Team | Description | +--------+ + + + + | 07/30/ | Telephone | [facility] | Trisha Conner DNP | Referral Consult | | 2019 | | CARDIOTHORACIC | [address] | | | | | SURGERY [address] | [place], [place] | | | | | [address] | [address] | | | | | [place], [place] | | | | | | [address] | | | | | | [phone] | | | +--------+ + + + [...] | | | | | | [address] [place] | | | | | | [address] | | | | | | | [...]
--- OUTSIDE RECORDS SUMMARY | ~2019-11-18 | XMS | Encounter Summary ---
Demographics + + + | Address | [address] | | | [place] [address] | + + + | Home Phone [...] Providers + +------+ + | Care Neonatal Social Worker Name | Role | Phone | + +------+ + | Rahul Silva MD | PCP | | + +------+ + Encounter Details +--------+ + + + + | Date | Type | Department | Care Team | Description | +--------+ + + + + | 09/18/ | Orders Only | [facility] | Conversion | | | 2018 | | NEPHROLOGY [place] | Transaction, | | | | | [address] | Provider Unknown | | | | | [address] [place] | | | | | | [address] | (Fax) | | | | | [phone] | | | +--------+ + + + [...] | | | | | [address] [facility] | | | | | | [address] | | | | | | | [...]
--- OUTSIDE RECORDS SUMMARY | ~2019-11-18 | XMS | Encounter Summary ---
Demographics + + + | Address | [address] | | | [place] [address] | + + + | Home Phone [...] [place] | | | | | [address] | | + + + + + Care Team Providers + +------+ + | Care Watchmaking Teacher Name | Role | Phone | + +------+ + PCP | Unavailable | + +------+ + Encounter Details +--------+ + + + + | Date | Type | Department | Care Team | Description | +--------+ + + + + | 03/31/ | Results | Pulmonary Function | Jarod Gupta MD | | | 1992 | Only | Lab at [facility] [address] | [address] | | | | | [address] | [place], | | | | | Mailcode: [id number] | [place] [address] | | | | | [place] | [phone] | | | | | [place], [place] | | | | | | [address] | | | | | | [phone] | | | +--------+ + + + [...] | | | | | | a [place]-Lupe catheter | | | | | | [...] | | | | placement of a [place]Lupe | | | | | | catheter. CHEST, | | | | | | SINGLE AP PORTABLE: | | | | | | 03-31-93 AT 1000 HOURS | | | | | | FINDINGS: Since the | | | | | | prior study, the | | | | | | [place] catheter has | | | | | [...] IMPRESSION: | | | | | | [place]-Lu[place] catheter | | | | | | [...] The | | | | | | [place] catheter | | | | | | [...] and | | | | | | [place]-Lupe catheter | | | | | | [...] endotracheal | | | | | | tube,[place]-Lupe catheter | | | | | | [...] | | + +---------+ + + | [facility] DEPARTMENT OF | | | | [...] | + + + + + | [facility] | [address] | [place] [address] | | | PATHOLOGY | [address] | | | + + + + + documented in this encounter Visit Diagnoses Not on filedocumented in this encounter"
--- OUTSIDE RECORDS SUMMARY | ~2019-11-18 | XMS | Encounter Summary ---
Demographics + + + | Address | [address] | | | [place] [address] | + + + | Home Phone [...] Providers + +------+ + | Care Auto Claim Representative Name | Role | Phone | + +------+ + | Rahul Silva MD | PCP | | + +------+ + Encounter Details +--------+ + + + + | Date | Type | Department | Care Team | Description | +--------+ + + + + | 10/08/ | Orders Only | [facility] | Farrukh Acuna MD | | | 2018 | | NEPHROLOGY [place] | [address] [place] | | | | | [address] [place] | [address] [place], [place] | | | | | [address] [place], [place] | [address] | | | | | [address] | | | | | | [phone] | | | +--------+ + + + [...] [place] | | | | | | [address] | | | | | | | [...] | | | LAB | | | [place] | | | | | + + [...]
--- OUTSIDE RECORDS SUMMARY | ~2019-11-18 | XMS | Encounter Summary ---
Demographics + + + | Address | [address] | | | [place] [address] | + + + | Home Phone [...] Team Providers + +------+ + | Care Sleeve Maker Name | Role | Phone | [...] | Transaction, | | | | | [place], [place] | Provider Unknown | | | | | [address] | | | | | | [phone] | | | +--------+ + + + [...] [place] | | | | | | [address] | | | | | | | [...]
--- OUTSIDE RECORDS SUMMARY | ~2019-11-18 | XMS | Encounter Summary ---
Demographics + + + | Address | [address] | | | [place] [address] | + + + | Home Phone [...] Team Providers + +------+ + | Care Shipwright Name | Role | Phone | + +------+ + | Rahul Silva MD | PCP | | + +------+ + Encounter Details +--------+ + + + + | Date | Type | Department | Care Team | Description | +--------+ + + + + | 01/23/ | Orders Only | [facility] | Collin Mirza, | | | 2015 | | NEPHROLOGY [place] | [address] | | | | | [address] [place] | [address] | | | | | [address] [place], [place] | [place] | | | | | [address] | [address] | | | | | [phone] | [phone] | | | | | | | [...] | | | | | | [address] [place], [place] | | | | | | [address] | | | | | | | [...]
--- OUTSIDE RECORDS SUMMARY | ~2019-11-18 | XMS | Encounter Summary ---
Demographics + + + | Address | [address] | | | [place] [address] | + + + | Home Phone [...] [place] | | | | | [address] | | + + + + + Care Team Providers + +------+ + | Care Oncology Technician Name | Role | Phone | [...] Clinic | | | | | | [facility], [address] | | | | | | [place], [place] | | | | | | [address] | | | | | | [phone] | | | +--------+ + + + [...] as of this encounter Progress Notes Interface, Hydroelectric Plant Structural Engineer In - 12/25/2006 5:00 AM [facility] CLINIC DATE: 03/16/98 PLASTIC SURGERY [...] in the near future. Galo Arora M.D. Motor Patrol Operator, Division of Plastic & Reconstructive Surgery AYDEE/alfred documented in this encounter Plan of Treatment Not on filedocumented as of this encounter Visit Diagnoses Not on filedocumented in this encounter"
--- OUTSIDE RECORDS SUMMARY | ~2019-11-18 | XMS | Encounter Summary ---
Demographics + + + | Address | [address] | | | [place] [address] | + + + | Home Phone [...] Team Providers + +------+ + | Care Molding Manager Name | Role | Phone | [...] [address] | | | | | [place], [place] | [place], [place] | | | | | [address] | [address] | | | | | [phone] | [phone] | | | | | | | [...] 2020 | Visit | | [address] [facility] | | | | | | [address] [facility] | | | | | | [address] | | | | | | | [...]
--- OUTSIDE RECORDS SUMMARY | ~2019-11-18 | XMS | Encounter Summary ---
Demographics + + + | Address | [address] | | | [place] [address] | + + + | Home Phone [...] Providers + +------+ + | Care Hotel Or Motel Receptionist Name | Role | Phone | + +------+ + | Rahul Silva MD | PCP | | + +------+ + Encounter Details +--------+ + + + + | Date | Type | Department | Care Team | Description | +--------+ + + + + | 07/30/ | Orders Only | [facility] | Conversion | | | 2016 | | NEPRHOLOGY [place] | Transaction, | | | | | [address] | Provider Unknown | | | | | [address] [place], [place] | [phone] | | | | | [address] | (Fax) | | | | | [phone] | | | +--------+ + + + [...] | | | | | | [address] [facility] | | | | | | [address] | | | | | | | [...]
--- OUTSIDE RECORDS SUMMARY | ~2019-11-18 | XMS | Encounter Summary ---
Demographics + + + | Address | [address] | | | [place] [address] | + + + | Home Phone [...] [place] | | | | | [address] | | + + + + + Care Team Providers + +------+ + | Care Non Morse Intercept Technician Name | Role | Phone | [...] [address] | | | | | | [place], [place] | | | | | | [address] | | | | | | [phone] | | | +--------+ + + + [...] as of this encounter Progress Notes Interface, Residential Program Director In - 01/09/2007 5:07 AM PST CLINIC DATE: 10/03/97 [facility] - PROGRESS NOTE [...] Vargas D.O. Resident, Anesthesiology Nelson Melara M.D. Rope Cleaner, Anesthesiology [facility] KAYLEENM/cjv cc: [facility] [place] [address] JESSENIA RODRIGUEZ MD DEPARTMENT OF FAMILY MEDICINE [facility] documented in this encounter Plan of Treatment Not on filedocumented as of this encounter Visit Diagnoses Not on filedocumented in this encounter"
--- OUTSIDE RECORDS SUMMARY | ~2019-11-18 | XMS | Encounter Summary ---
Demographics + + + | Address | [address] | | | [place] [address] | + + + | Home Phone [...] Team Providers + +------+ + | Care Ramp Manager Name | Role | Phone | + +------+ + | Rahul iSlva MD | PCP | | + +------+ + Encounter Details +--------+---------+ + + + | Date | Type | Department | Care Team | Description | +--------+---------+ + + + | 10/04/ | Office | [facility] | Farrukh Acuna MD | CKD (chronic kidney | | 2019 | Visit | NEPHROLOGY [place] | [address] [place] | disease) stage 5, | | | | [address] | [address] [place], [place] | GFR less than 15 | | | | [address] | [address] | ml/min (HCC) | | | | [place], [place] | | (Primary Dx); Anemia | | | | [address] | | of chronic kidney | | | | [phone] | | failure, stage 5 | | [...] 10/2016 with severe pneumonia, severe ZEKE; needed CUTTER FIRST for ~5 weeks b efore renal function recovery mid 12/2016. He was admitted to [facility] for 3 nights in July 2016 [...] 19.5 (A) 05/27/2019 LABPROT 2,445.6 (A) 03/01/2019 [id number] 10/08/2018 Assessment: Mr. Andujar is a 78 y.o. male patient with stage IV CKD on a background of diabetes & hypert ension and recent hospitalization for C-diff and hehydration. The most likely pathology here is that of diabetic nephropathy +/- hypertensive nephrosclerosis/arteriolosclerosis. He was hospitalized in 10/2016 with severe pneumonia, severe ZEKE; needed CUTTER FIRST for ~5 weeks b efore renal function [...] Also: I see no need for acute CUTTER FIRST. I see no need to send him [...] | | | | | | [address] [place], [place] | | | | | | [address] | | | | | | | [...]
--- OUTSIDE RECORDS SUMMARY | ~2019-11-18 | XMS | Encounter Summary ---
Demographics + + + | Address | [address] | | | [place] [address] | + + + | Home Phone [...] [place] | | | | | [address] | | + + + + + Care Team Providers + +------+ + | Care Senior Energy Market Coordinator Name | Role | Phone | [...] [facility] | | | | | | [place], [place] | | | | | | [address] | | | | | | [phone] | | | +--------+ + + + [...]
--- OUTSIDE RECORDS SUMMARY | ~2019-11-18 | XMS | Encounter Summary ---
Demographics + + + | Address | [address] | | | [place] [address] | + + + | Home Phone [...] Team Providers + +------+ + | Care Telehealth Director Name | Role | Phone | [...] [address] | | | | | [place], [place] | [place], [place] | | | | | [address] | [address] | | | | | [phone] | [phone] | | | | | | | [...] | | | | [address] [facility] | | | | | | [phone] [...]
--- OUTSIDE RECORDS SUMMARY | ~2019-11-18 | XMS | Encounter Summary ---
Demographics + + + | Address | [address] | | | [place] [address] | + + + | Home Phone [...] Providers + +------+ + | Care Rollway Worker Name | Role | Phone | + +------+ + | Rahul Silva MD | PCP | | + +------+ + Encounter Details +--------+ + + + + | Date | Type | Department | Care Team | Description | +--------+ + + + + | 02/12/ | Orders Only | [facility] | Conversion | | | 2018 | | NEPHROLOGY [place] | Transaction, | | | | | [address] | Provider Unknown | | | | | [address] [place] | | | | | | [address] | (Fax) | | | | | [phone] | | | +--------+ + + + [...] | | | [address] [facility] | | | | | | [address] | | | | | | | [...]
--- OUTSIDE RECORDS SUMMARY | ~2019-11-18 | XMS | Encounter Summary ---
Demographics + + + | Address | [address] | | | [place] [address] | + + + | Home Phone [...] Team Providers + +------+ + | Care Transit Mixer Operator Name | Role | Phone | + +------+ + | Rahul Silva MD | PCP | | + +------+ + Encounter Details +--------+ + + + + | Date | Type | Department | Care Team | Description | +--------+ + + + + | 07/06/ | Orders Only | [facility] | Farrukh Acuna MD | | | 2018 | | NEPRHOLOGY [place] | [address] | | | | | [address] | 160 [place], [place] | | | | | [address] [place], [place] | [address] | | | | | [address] | | | | | | [phone] | | | +--------+ + + + [...] [place] | | | | | | [address] | | | | | | | [...]
--- OUTSIDE RECORDS SUMMARY | ~2019-11-18 | XMS | Encounter Summary ---
Demographics + + + | Address | [address] | | | [place] [address] | + + + | Home Phone [...] Team Providers + +------+ + | Care Instrument Shop Supervisor Name | Role | Phone | [...] | | | stage 5, GFR | [address] | | | | | | less than | Phone: | | | | | | 15 ml/min | [phone] | | | | | | (FORMERLY [facility]) | Fax: | | | | | | Procedures | [phone] | | | | | | VAS [...] + + | 10/20/ | Hospital | [facility] | Trisha Conner DNP | CKD (chronic kidney | | 2018 | Encounter | VASCULAR SURGERY | [address] | disease) stage 5, | | | | ULTRASOUND [address] | [address] | GFR less than 15 | | | | [place] | [address] | ml/min (HCC) | | | | [place], [place] | | | | | | [address] | | | | | | [phone] | | | +--------+ + + + [...] | | (FORMERLY [facility]) | | | | | | + [...] 2020 | Visit | | [address] [facility] | | | | | | [address] [facility] | | | | | | [address] | | | | | | | [...]
--- OUTSIDE RECORDS SUMMARY | ~2019-11-18 | XMS | Encounter Summary ---
Demographics + + + | Address | [address] | | | [place] [address] | + + + | Home Phone [...] Providers + +------+ + | Care Director Network Development Name | Role | Phone | [...] + + | 11/08/ | Documentati | [facility] | Simon, | Results (10/10/19) | | 2019 | on | NEPHROLOGY [place] | [facility] | | | | | [address] | Manager Biostatistics | | | | | [address] | | | | | | [place] | | | | | | [address] | | | | | | [phone] | | | +--------+ + + + [...] [place] | | | | | | [address] | | | | | | | [...]
--- OUTSIDE RECORDS SUMMARY | ~2019-11-18 | XMS | Encounter Summary ---
Demographics + + + | Address | [address] | | | [place] [address] | + + + | Home Phone [...] Providers + +------+ + | Care Senior Instrumentation Engineer Name | Role | Phone | [...] + + | 08/13/ | Telephone | [facility] | Farrukh Acuna MD | Other (lab result) | | 2019 | | NEPRHOLOGY [place] | [address] [address] | | | | | [address] | 160 [place], [place] | | | | | 101 [place], [place] | [address] | | | | | [address] | | | | | | [phone] | | | +--------+ + + + [...] [place] | | | | | | [address] | | | | | | | | +--------+---------+ + + + documented as of this encounter Visit Diagnoses Not on filedocumented in this encounter"
--- OUTSIDE RECORDS SUMMARY | ~2019-11-18 | XMS | Encounter Summary ---
Demographics + + + | Address | [address] | | | [place] [address] | + + + | Home Phone [...] Team Providers + +------+ + | Care Technology Instructor Name | Role | Phone [...] Young | | | | | [place], [place] | [place], [place] | | | | | [address] | [address] | | | | | [phone] | [phone] | | | | | | | [...] HOSPITAL[facility]HA | | | | | | [address] | | | | | | | [...]
--- OUTSIDE RECORDS SUMMARY | ~2019-11-18 | XMS | Encounter Summary ---
Demographics + + + | Address | [address] | | | [place] [address] | + + + | Home Phone [...] [place] | | | | | [address] | | + + + + + Care Team Providers + +------+ + | Care Outboard Motor Inspector Name | Role | Phone | + +------+ + PCP | Unavailable | + +------+ + Encounter Details +--------+ + + + + | Date | Type | Department | Care Team | Description | +--------+ + + + + | 03/30/ | Results | | Other, Faculty | | | 1992 | Only | | [phone] | | +--------+ + + + + [...] | + +---------+ + + | [facility] DEPARTMENT OF | | | [...] | | | W CONTRAST | Edin ERNNER | | | | | | Idris-Radiologist [...] | + +---------+ + + | [facility] DEPARTMENT OF | | | [...] | | | | | | | [id number] AND | | | | | | [...] | + +---------+ + + | [facility] DEPARTMENT OF | | | [...] | + +---------+ + + | [facility] DEPARTMENT OF | | | [...] | | | | | | | [id number] | | | | | | CHEST: [...] | | | | | | | [id number] | | | | | | CHEST: [...] | | | | | | | [id number], | | | | | | PORTABLE, [...] | + +---------+ + + | [facility] DEPARTMENT OF | | | [...] | | | | | | | [id number], | | | | | | PORTABLE, [...] and | | | | | | Madison Ganzcatheter are | | | | | [...] | + +---------+ + + | [facility] DEPARTMENT OF | | | [...] | + +---------+ + + | [facility] DEPARTMENT OF | | | [...] | | | | | | a Madison-Lupe catheter | | | | | | [...] | | | | placement of a Madison-Lupe | | | | | | catheter. CHEST, | | | | | | SINGLE AP PORTABLE: | | | | | | 03-31-93 AT 1000 HOURS | | | | | | FINDINGS: Since the | | | | | | prior study, the | | | | | | Madison-Lupe catheter has | | | | | [...] IMPRESSION: | | | | | | Madison-Lupe catheter | | | | | | [...] The | | | | | | Madison-Lupe catheter | | | | | | [...] and | | | | | | Madison-Lupe catheter | | | | | | [...] endotracheal | | | | | | tube,Madison-Lupe catheter | | | | | | [...] | | | | | | a Madison-Lupe catheter | | | | | | [...] | | | | placement of a Madison-Lupe | | | | | | catheter. CHEST, | | | | | | SINGLE AP PORTABLE: | | | | | | 03-31-93 AT 1000 HOURS | | | | | | FINDINGS: Since the | | | | | | prior study, the | | | | | | Madison-Lupe catheter has | | | | | [...] IMPRESSION: | | | | | | Madison-Lupe catheter | | | | | | [...] The | | | | | | Madison-Lupe catheter | | | | | | [...] and | | | | | | Madison-Lupe catheter | | | | | | [...] endotracheal | | | | | | tube,Madison-Lupe catheter | | | | | | [...] | + +---------+ + + | [facility] DEPARTMENT OF | | | [...] | | | | | | a Madison-Lupe catheter | | | | | | [...] | | | | placement of a Madison-Lupe | | | | | | catheter. CHEST, | | | | | | SINGLE AP PORTABLE: | | | | | | 03-31-93 AT 1000 HOURS | | | | | | FINDINGS: Since the | | | | | | prior study, the | | | | | | Madison-Lupe catheter has | | | | | [...] IMPRESSION: | | | | | | Madison-Lupe catheter | | | | | | [...] The | | | | | | Madison-Lupe catheter | | | | | | [...] and | | | | | | Madison-Lupe catheter | | | | | | [...] endotracheal | | | | | | tube,Madison-Lupe catheter | | | | | | [...] | + +---------+ + + | [facility] DEPARTMENT OF | | | [...] | | | | | | a Madison-Lupe catheter | | | | | | [...] | | | | placement of a Madison-Lupe | | | | | | catheter. CHEST, | | | | | | SINGLE AP PORTABLE: | | | | | | 03-31-93 AT 1000 HOURS | | | | | | FINDINGS: Since the | | | | | | prior study, the | | | | | | Madison-Lupe catheter has | | | | | [...] IMPRESSION: | | | | | | Madison-Lupe catheter | | | | | | [...] The | | | | | | Madison-Lupe catheter | | | | | | [...] and | | | | | | Madison-Lupe catheter | | | | | | [...] endotracheal | | | | | | tube,Madison-Lupe catheter | | | | | | [...] | + +---------+ + + | [facility] DEPARTMENT OF | | | [...] | | | | | | a Madison-Lupe catheter | | | | | | [...] | | | | placement of a Madison-Lupe | | | | | | catheter. CHEST, | | | | | | SINGLE AP PORTABLE: | | | | | | 03-31-93 AT 1000 HOURS | | | | | | FINDINGS: Since the | | | | | | prior study, the | | | | | | Madison-Lupe catheter has | | | | | [...] IMPRESSION: | | | | | | Madison-Lupe catheter | | | | | | [...] The | | | | | | Madison-Lupe catheter | | | | | | [...] and | | | | | | Madison-Lupe catheter | | | | | | [...] endotracheal | | | | | | tube,Madison-Lupe catheter | | | | | | [...] | | | | | [facility] | | | | | [...] | | | | | | a Madison-Lupe catheter | | | | | | [...] | | | | placement of a Madison-Lupe | | | | | | catheter. CHEST, | | | | | | SINGLE AP PORTABLE: | | | | | | 03-31-93 AT 1000 HOURS | | | | | | FINDINGS: Since the | | | | | | prior study, the | | | | | | Madison-Lupe catheter has | | | | | [...] IMPRESSION: | | | | | | Madison-Lupe catheter | | | | | | [...] The | | | | | | Madison-Lupe catheter | | | | | | [...] and | | | | | | Madison-Lupe catheter | | | | | | [...] endotracheal | | | | | | tube,Madison-Lupe catheter | | | | | | [...] | | | | | | a Madison-Lupe catheter | | | | | | [...] | | | | placement of a Madison-Lupe | | | | | | catheter. CHEST, | | | | | | SINGLE AP PORTABLE: | | | | | | 03-31-93 AT 1000 HOURS | | | | | | FINDINGS: Since the | | | | | | prior study, the | | | | | | Madison-Lupe catheter has | | | | | [...] IMPRESSION: | | | | | | Madison-Lupe catheter | | | | | | [...] The | | | | | | Madison-Lupe catheter | | | | | | [...] and | | | | | | Madison-Lupe catheter | | | | | | [...] endotracheal | | | | | | tube,Madison-Lupe catheter | | | | | | [...]
--- OUTSIDE RECORDS SUMMARY | ~2019-11-18 | XMS | Encounter Summary ---
Demographics + + + | Address | [address] | | | [place] [address] | + + + | Home Phone [...] Team Providers + +------+ + | Care Attending Pathologist Name | Role | Phone | [...] [address] | | | | | [place], [place] | [place], [place] | | | | | [address] | [address] | | | | | [phone] | [phone] | | | | | | | [...] [place] | | | | | | [address] | | | | | | | [...]
--- OUTSIDE RECORDS SUMMARY | ~2019-11-18 | XMS | Encounter Summary ---
Demographics + + + | Address | [address] | | | [place] [address] | + + + | Home Phone [...] Team Providers + +------+ + | Care Fashion Consultant Sales Name | Role | Phone | + +------+ + | Rahul Silva MD | PCP | | + +------+ + Encounter Details +--------+ + + + + | Date | Type | Department | Care Team | Description | +--------+ + + + + | 01/23/ | Orders Only | [facility] | Collin Mirza, | | | 2015 | | NEPHROLOGY [place] | [address] | | | | | [address] | [address] | | | | | [address] [place], [place] | [place] | | | | | [address] | [address] | | | | | [phone] | [phone] | | | | | | | [...] | | | | | | 160 [place], [place] | | | | | | [address] | | | | | | | [...]
--- OUTSIDE RECORDS SUMMARY | ~2019-11-18 | XMS | Encounter Summary ---
Demographics + + + | Address | [address] | | | [place] [address] | + + + | Home Phone [...] Providers + +------+ + | Care Pump Installer Name | Role | Phone [...] + + | 09/07/ | Telephone | [facility] | Sandy Gomez, | Surgery Appointment | | 2019 | | VASCULAR SURGERY | RN | | | | | [address] | | | | | | [address] [place] | | | | | | [address] | | | | | | [phone] | | | +--------+ + + + [...] [place] | | | | | | [address] | | | | | | | | +--------+---------+ + + + documented as of this encounter Visit Diagnoses Not on filedocumented in this encounter"
--- OUTSIDE RECORDS SUMMARY | ~2019-11-18 | XMS | Encounter Summary ---
Demographics + + + | Address | [address] | | | [place] [address] | + + + | Home Phone [...] Providers + +------+ + | Care Processing Clerk Name | Role | Phone | + +------+ + | Rahul Silva MD | PCP | | + +------+ + Encounter Details +--------+ + + + + | Date | Type | Department | Care Team | Description | +--------+ + + + + | 07/17/ | Orders Only | [facility] | Conversion | | | 2016 | | NEPHROLOGY [place] | Transaction, | | | | | [address] | Provider Unknown | | | | | [address] [place] | | | | | | [address] | (Fax) | | | | | [phone] | | | +--------+ + + + [...] | | | | | [address] [facility] | | | | | | [address] | | | | | | | [...]
--- OUTSIDE RECORDS SUMMARY | ~2019-11-18 | XMS | Encounter Summary ---
Demographics + + + | Address | [address] | | | [place] [address] | + + + | Home Phone [...] Providers + +------+ + | Care Inspector Sheet Metal Parts Name | Role | Phone | + +------+ + | Rahul Silva MD | PCP | | + +------+ + Encounter Details +--------+ + + + + | Date | Type | Department | Care Team | Description | +--------+ + + + + | 05/27/ | Orders Only | [facility] | Farrukh Acuna MD | | | 2019 | | NEPHROLOGY [place] | [address] | | | | | [address] [place] | [address] [place], [place] | | | | | [address] [place], [place] | [address] | | | | | [address] | | | | | | [phone] | | | +--------+ + + + [...] [place] | | | | | | [address] | | | | | | | [...]
--- OUTSIDE RECORDS SUMMARY | ~2019-11-18 | XMS | Encounter Summary ---
Demographics + + + | Address | [address] | | | [place] [address] | + + + | Home Phone [...] + +------+ + | Care Director Of Retention Name | Role | Phone | + [...] Young | | | | | [place], [place] | [place], [place] | | | | | [address] | [address] | | | | | [phone] | [phone] | | | | | | | [...] | | | | | [address] [facility] | | | | | | [address] | | | | | | | [...]
--- OUTSIDE RECORDS SUMMARY | ~2019-11-18 | XMS | Encounter Summary ---
Demographics + + + | Address | [address] | | | [place] [address] | + + + | Home Phone [...] Author | [facility] | | | [...] Team Providers + +------+ + | Care Municipal Court Judge Name | Role | Phone | + +------+ + | Rahul Silva MD | PCP | | + +------+ + Encounter Details +--------+ + + + + | Date | Type | Department | Care Team | Description | +--------+ + + + + | 06/23/ | Orders Only | [facility] | Farrukh Acuna MD | | | 2018 | | NEPHROLOGY [place] | [address] [place] | | | | | [address] [place] | [address] [place], [place] | | | | | [address] [place], [place] | [address] | | | | | [address] | | | | | | [phone] | | | +--------+ + + + [...] 2020 | Visit | | [address] [facility] | | | | | | [address] [place] | | | | | | [address] | | | | | | | [...]
--- OUTSIDE RECORDS SUMMARY | ~2019-11-18 | XMS | Encounter Summary ---
Demographics + + + | Address | [address] | | | [place] [address] | + + + | Home Phone [...] Providers + +------+ + | Care Industrial Machine System Technician Name | Role | Phone | + +------+ + | Rahul Silva MD | PCP | | + +------+ + Encounter Details +--------+ + + + + | Date | Type | Department | Care Team | Description | +--------+ + + + + | 05/27/ | Orders Only | [facility] | Conversion | | | 2019 | | NEPHROLOGY [place] | Transaction, | | | | | [address] | Provider Unknown | | | | | [address] [place] | | | | | | [address] | (Fax) | | | | | [phone] | | | +--------+ + + + [...] | [address] [facility] | | | | | | [address] | | | | | | | [...]
--- OUTSIDE RECORDS SUMMARY | ~2019-11-18 | XMS | Encounter Summary ---
Demographics + + + | Address | [address] | | | [place] [address] | + + + | Home Phone [...] Providers + +------+ + | Care Transportation Aide Name | Role | Phone | + +------+ + | Rahul Silva MD | PCP | | + +------+ + Encounter Details +--------+---------+ + + + | Date | Type | Department | Care Team | Description | +--------+---------+ + + + | 07/26/ | Office | [facility] | Farrukh Acuna MD | Stage 5 chronic | | 2019 | Visit | NEPHROLOGY [place] | [address] [place] | kidney disease not | | | | [address] | [address] [place], [place] | on chronic dialysis | | | | [address] | [address] | (HCC) (Primary Dx); | | | | [place], [place] | | Edema of lower | | | | [address] | | extremity; Tobacco | | | | [phone] | | dependence syndrome; | | | [...] Also: I see no need for acute SENIOR MANAGER. I see no need to send [...] Notes by Farrukh Acuna MD at 05/31/19 4707 Author: Farrukh Acuna MD Service: (none) Author Type: Physician Filed: 05/31/19 1232 Encounter Date: 05/31/2019 Status: Signed Superintendent [employer]: Farrukh Acuna MD (Physician) Patient Active Problem List Diagnosis CKD (chronic kidney disease), stage IV Type 2 diabetes mellitus with diabetic nephropathy, with long-term current use of insul in ([facility]) FH: HTN (hypertension) Edema of right lower [...] 10/2016 with severe pneumonia, severe ZEKE; needed SENIOR MANAGER for ~5 weeks b efore renal [...] 19.5 (A) 05/27/2019 LABPROT 2,445.6 (A) 03/01/2019 [id number] 10/08/2018 Assessment: Mr. Andujar is a 78 y.o. male patient with stage IV CKD on a background of diabetes & hypert ension and recent hospitalization for C-diff and hehydration. The most likely pathology here is that of diabetic nephropathy +/- hypertensive nephrosclerosis/arteriolosclerosis. He was hospitalized in 10/2016 with severe pneumonia, severe ZEKE; needed SENIOR MANAGER for ~5 weeks b efore renal [...] Also: I see no need for acute SENIOR MANAGER. I see no need to send [...] yours, Farrukh Acuna MD FACP, [facility], FA documented in this enco unter Plan of Treatment +--------+---------+ + + + | Date | Type | Specialty | Care Team | Description | +--------+---------+ + + + | 12/06/ | Office | Nephrology | Farrukh Acuna MD | | | 2019 | Visit | | [address] [facility] | | | | | | [address] [place], [place] | | | | | | [address] | | | | | | | [...]
--- OUTSIDE RECORDS SUMMARY | ~2019-11-18 | XMS | Encounter Summary ---
Demographics + + + | Address | [address] | | | [place] [address] | + + + | Home Phone [...] Team Providers + +------+ + | Care Supervising Architect Name | Role | Phone | + +------+ + PCP | Unavailable | + +------+ + Encounter Details +--------+ + + + + | Date | Type | Department | Care Team | Description | +--------+ + + + + | 08/02/ | [facility] | [facility] | Nelson Lutz MD | | | 1991 | Encounter | MED CTR GENERIC OP | [address], [place] | | | | | CONV DEPT [address] | [address] [place] | | | | | [address] [place], | [address] | | | | | [place] [address] | | | | | | [phone] | | | +--------+ + + + [...] | | | | | | [address] [place] | | | | | | [address] | | | | | | | | +--------+---------+ + + + documented as of this encounter Visit Diagnoses Not on filedocumented in this encounter"
--- OUTSIDE RECORDS SUMMARY | ~2019-11-18 | XMS | Encounter Summary ---
Demographics + + + | Address | [address] | | | [place] [address] | + + + | Home Phone [...] Providers + +------+ + | Care Payroll Auditor Name | Role | Phone | + +------+ + | Rahul Silva MD | PCP | | + +------+ + Encounter Details +--------+ + + + + | Date | Type | Department | Care Team | Description | +--------+ + + + + | 10/05/ | Orders Only | [facility] | Farrukh Acuna MD | Essential | | 2019 | | NEPHROLOGY [place] | [address] [place] | hypertension | | | | [address] | [address] [place], [place] | (Primary Dx); Iron | | | | [address] | [address] | deficiency; Anemia | | | | [place], [place] | | of chronic kidney | | | | [address] | | failure, stage 5 | | | | [phone] | | (HCC) | +--------+ + + [...] | | | | | | [address] [place], [place] | | | | | | [address] | | | | | | | [...]
--- OUTSIDE RECORDS SUMMARY | ~2019-11-18 | XMS | Encounter Summary ---
Demographics + + + | Address | [address] | | | [place] [address] | + + + | Home Phone | | + + + | Preferred Language | Unknown | + + + | Marital Status | Single | + + + | Anabaptist Affiliation | PRO | + + + [...] | + + + + + | Dacri Andujar | [address] | [place] | | | | | [address] | | + + + + + Care Team Providers + +------+ + | Care Pen Tender Name | Role | Phone | + +------+ + PCP | Unavailable | + +------+ + Encounter Details +--------+ + + + + | Date | Type | Department | Care Team | Description | +--------+ + + + + | 01/03/ | Discharge | [facility] at | Summary, Discharge | D/C Summary ODDS | | 1996 | Summary-Tra | [facility] [address] | | | | | nscribed | [address] | | | | | | Mailcode: [address] | | | | | | [address] | | | | | | [place], | | | | | | [place] [address] | | | | | | [phone] | | | +--------+ + + + [...] as of this encounter Discharge Summaries Interface, Certified Massage Therapist In - 02/05/2007 1:03 AM PST [address] [address] [facility] MEDICAL SUMMARY OF HOSPITALIZATION Med Rec No.: [id number] Admission Date: 12/28/96 Name: Kavon Andujar Discharge Date: 01/03/97 STAFF PHYSICIAN: Robert Carlson M.D. Professor, Vascular Surgery PRINCIPAL FINAL DIAGNOSIS: Osteophyte of left nrhyh-jpy-wqwi amputation stump. ADDITIONAL DIAGNOSES: Phantom pain. PRINCIPAL PROCEDURE: Revision of left xokpb-duj-zcsf amputation stump and excision of left stump osteophyte. 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 Since then he has had pain in the stump. On a computed tomography (CT) scan, it was noted that he had a large bone spur and a cyst in his stump site. HOSPITAL COURSE: The patient was admitted on December 28 and underwent revision of his left qvabe-thi-nrgc amputation stump with excision of his left [...] Normal. 3. DIET: Normal. Nick Noriega M.D. Vocational Education Professional, General Surgery Robert Carlson M.D. Professor, Vascular Surgery DOMINIC/jc A cc: RUBIA KNAPP MD [address] [facility] [address] documented in this encounter Plan of Treatment Not on filedocumented as of this encounter Visit Diagnoses Not on filedocumented in this encounter"
--- OUTSIDE RECORDS SUMMARY | ~2019-11-18 | XMS | Encounter Summary ---
Demographics + + + | Address | [address] | | | [place] [address] | + + + | Home Phone [...] [place] | | | | | [address] | | + + + + + Care Team Providers + +------+ + | Care Utility Sales And Service Manager Name | Role | Phone | [...] Clinic | | | | | | [facility], [address] | | | | | | [place], [place] | | | | | | [address] | | | | | | [phone] | | | +--------+ + + + [...] of this encounter Progress Notes Interface, Manager Foreign In - 01/06/2007 5:03 AM PST CLINIC DATE: 10/31/97 [facility] - PROCEDURE [...] his left thigh stump. Nelson Melara M.D. Hr Administrative Assistant, [facility] MANDY/maryjo documented in this encounter Plan of Treatment Not on filedocumented as of this encounter Visit Diagnoses Not on filedocumented in this encounter"
--- OUTSIDE RECORDS SUMMARY | ~2019-11-18 | XMS | Encounter Summary ---
Demographics + + + | Address | [address] | | | [place] [address] | + + + | Home Phone [...] [place] HIN[place] | | | | | [address] | | + + + + + Care Team Providers + +------+ + | Care Manufacturing Systems Engineer Name | Role | Phone [...] Rd | | | | | | [place], [place] | | | | | | [address] | | | +--------+ + + + [...] as of this encounter Progress Notes Interface, Cultured Marble Products Maker In - 03/27/2007 3:12 AM PDT [...] Dr. Valles who is his physician in [place], [place]. He has made me aware that [...] M.D. Fellow, Gastroenterology SHANEL/stephon cc: ARIA W[facility] [facility] [place] documented in this encounter Plan of Treatment Not on filedocumented as of this encounter Visit Diagnoses Not on filedocumented in this encounter"
--- OUTSIDE RECORDS SUMMARY | ~2019-11-18 | XMS | Encounter Summary ---
Demographics + + + | Address | [address] | | | [place] [address] | + + + | Home Phone [...] Providers + +------+ + | Care Senior Hr Business Partner Name | Role | Phone | + +------+ + | Rahul Silva MD | PCP | | + +------+ + Encounter Details +--------+ + + + + | Date | Type | Department | Care Team | Description | +--------+ + + + + | 03/01/ | Orders Only | [facility] | Conversion | | | 2019 | | NEPHROLOGY [place] | Transaction, | | | | | [address] | Provider Unknown | | | | | [address] | | | | | | [address] | (Fax) | | | | | [phone] | | | +--------+ + + + [...] | | | | [address] [facility] | | | | | | [address] | | | | | | | [...] - 1.030 | EXTERNAL | | | [place] | | | LAB | | + [...] | | | LAB | | | GREEK | | | | | + + [...]
--- OUTSIDE RECORDS SUMMARY | ~2019-11-18 | XMS | Encounter Summary ---
Demographics + + + | Address | [address] | | | [place] [address] | + + + | Home Phone [...] Team Providers + +------+ + | Care Pool Cleaner Name | Role | Phone | + +------+ + | Rahul Silva MD | PCP | | + +------+ + Encounter Details +--------+ + + + + | Date | Type | Department | Care Team | Description | +--------+ + + + + | 04/10/ | Orders Only | [facility] | Conversion | | | 2014 | | NEPRHOLOGY [place] | Transaction, | | | | | [address] | Provider Unknown | | | | | [address] [place], [place] | | | | | | [address] | (Fax) | | | | | [phone] | | | +--------+ + + + [...] 2020 | Visit | | [address] [facility] | | | | | | [address] [place], [place] | | | | | | [address] | | | | | | | [...]
--- OUTSIDE RECORDS SUMMARY | ~2019-11-18 | XMS | Encounter Summary ---
Demographics + + + | Address | [address] | | | [place] [address] | + + + | Home Phone [...] Providers + +------+ + | Care Directory Assistance Operator Name | Role | Phone | [...] | | | 2018 | | NEPRHOLOGY [place]NA | [address] | | | | | [address] | [address] [place], [place] | | | | | [address] [place], [place] | [address] | | | | | [address] | | | | | | [phone] | | | +--------+ + + + [...] [place] | | | | | | [address] | | | | | | | [...]
--- OUTSIDE RECORDS SUMMARY | ~2019-11-18 | XMS | Encounter Summary ---
Demographics + + + | Address | [address] | | | [place] [address] | + + + | Home Phone [...] Providers + +------+ + | Care Process Validation Engineer Name | Role | Phone | [...] | | | | disease not | [place], | [place], [place] | | | | | on chronic | [place] [address] | [address] | | | | | dialysis | Phone: | Phone: | | | | | ([facility]) | [phone] | [phone] | | | | | Hypertension | Fax: | Fax: | | | | | , | [phone] | [phone] | | | | | unspecified | | | | | | | type | | | +--------+ + + + + + Encounter Details +--------+ + + + + | Date | Type | Department | Care Team | Description | +--------+ + + + + | 07/28/ | Orders Only | [facility] | Farrukh Acuna MD | Iron deficiency | | 2019 | | NEPHROLOGY [place] | [address] [place] | (Primary Dx); Anemia | | | | [address] [place] | [address] [place], [place] | of chronic kidney | | | | [address] [place], [place] | [address] | failure, stage 5 | | | | [address] | | ([facility]); Stage 5 | | | | [phone] | | chronic kidney | | | | | | disease not on | | | | | | chronic dialysis | | | | | | ([facility]); Secondary | | | | | | hyperparathyroidism | | | | | | ([facility]); Hypertension, | | | | | [...] [place] | | | | | | [address] | | | | | | (Fax) [...] | | | ([facility]) Hypertension, | | | | | [...] | | | ([facility]) Hypertension, | | | | | | unspecified type | | + +------+--------+ + + + + +--------+ + + | Name | Type | Priori | Associated Diagnoses | Order Schedule | | | | ty | | | + + +--------+ + + | Ambulatory Referral | Outpatient | Routin | Stage 5 chronic | Ordered: 07/28/2019 | | to [facility] | Referral | e | kidney disease not | | | Surgery | | | on chronic dialysis | | | | | | ([facility]) Hypertension, | | | | | [...]
--- OUTSIDE RECORDS SUMMARY | ~2019-11-18 | XMS | Encounter Summary ---
Demographics + + + | Address | [address] | | | [place] [address] | + + + | Home Phone [...] [place] HINSON | | | | | [address] | | + + + + + Care Team Providers + +------+ + | Care Screw Machine Operator Single Spindle Name | Role | Phone | + +------+ + PCP | Unavailable | + +------+ + Encounter Details +--------+ + + + + | Date | Type | Department | Care Team | Description | +--------+ + + + + | 01/31/ | Transcribed | [facility] at | [place], Other | Transcribed | | 1997 | | [address] [address] | | | | | [address] | | | | | | Mailcode: [id number] Panfilo | | | | | | Ronaldo Vyas | | | | | | [facility] | | | | | | [place] [address] | | | | | | [phone] | | | +--------+ + + + [...] as of this encounter Progress Notes Interface, Papeterie Table Assembler In - 12/28/2006 5:10 AM PST [address] [address] or January 31, 1998 GRIFFIN SMILEY MD [address] [facility] [address] [place] [address] RE:PORFIRIO ZAVALA MR#:[id number] Smiley: As [...] to hear in our conversation that the [place] [employer] does not cover Ultram in [...] in the future. Sincerely, Nelson Melara M.D. Access Assoc, Anesthesiology [facility] Pain Management Center MANDY/geovanni documented in this encounter Plan of Treatment Not on filedocumented as of this encounter Visit Diagnoses Not on filedocumented in this encounter"
--- OUTSIDE RECORDS SUMMARY | ~2019-11-18 | XMS | Encounter Summary ---
Demographics + + + | Address | [address] | | | [place] [address] | + + + | Home Phone [...] + +------+ + | Care Director Of Health Care Marketing Name | Role | Phone | + +------+ + | Rahul Silva MD | PCP | | + +------+ + Encounter Details +--------+ + + + + | Date | Type | Department | Care Team | Description | +--------+ + + + + | 01/13/ | Orders Only | [facility] | Conversion | | | 2016 | | NEPHROLOGY [place] | Transaction, | | | | | [address] | Provider Unknown | | | | | [address] | | | | | | [address] | (Fax) | | | | | [phone] | | | +--------+ + + + [...] | | | [address] [facility] | | | | | | [address] | | | | | | | [...] - 1.030 | EXTERNAL | | | [place] | | | LAB | | + [...] | | LAB | | | [place] | | | | | + + [...]
--- OUTSIDE RECORDS SUMMARY | ~2019-11-18 | XMS | Encounter Summary ---
Demographics + + + | Address | [address] | | | [place] [address] | + + + | Home Phone [...] Team Providers + +------+ + | Care Reeling Machine Operator Name | Role | Phone [...] + + | 07/30/ | Telephone | [facility] | Brian Orosco MD | Establish Care | | 2019 | | VASCULAR SURGERY | [address] | (Referral) | | | | [address] | [place], [place] | | | | | [place], [place] | [address] | | | | | [address] | [phone] | | | | | [phone] | | | +--------+ + + + [...] | | | | | | 160 [place], [place] | | | | | | [address] | | | | | | | | +--------+---------+ + + + documented as of this encounter Visit Diagnoses Not on filedocumented in this encounter"
--- OUTSIDE RECORDS SUMMARY | ~2019-11-18 | XMS | Encounter Summary ---
Demographics + + + | Address | [address] | | | [place] [address] | + + + | Home Phone [...] [place] HINSON | | | | | [address] | | + + + + + Care Team Providers + +------+ + | Care Correctional Sergeant Name | Role | Phone | + [...] | | | | | Mailcode: [id number] Panfiol | | | | | | [address] | | | | | | [facility] | | | | | | [place] [address] | | | | | | [phone] | | | +--------+ + + + [...] as of this encounter Progress Notes Interface, Rodding Anode Worker In - 12/28/2006 5:10 AM PST [address] [address] or January 31, 1998 GRIFFIN SMILEY MD [address] [facility] 2 [place] [address] RE:PORFIRIO ZAVALA MR#:[id number] Smiley: As [...] hear in our conversation that the [place] [employer] does not cover Ultram in [...] in the future. Sincerely, Nelson Melara M.D. Dairy Husbandman, Anesthesiology [facility] Pain Management Center MANDY/geovanni documented in this encounter Plan of Treatment Not on filedocumented as of this encounter Visit Diagnoses Not on filedocumented in this encounter"
--- OUTSIDE RECORDS SUMMARY | ~2019-11-18 | XMS | Encounter Summary ---
Demographics + + + | Address | [address] | | | [place] [address] | + + + | Home Phone [...] Providers + +------+ + | Care Customer Acquisition Manager Name | Role | Phone | [...] | Transaction, | | | | | [place], [place] | Provider Unknown | | | | | [address] | | | | | | [phone] | | | +--------+ + + + [...] 2020 | Visit | | [address] [facility] | | | | | | [address] [place] [address] | | | | | | [address] | | | | | | | [...]
--- OUTSIDE RECORDS SUMMARY | ~2019-11-18 | XMS | Encounter Summary ---
Demographics + + + | Address | [address] | | | [place] [address] | + + + | Home Phone [...] Team Providers + +------+ + | Care Rust Proofer Name | Role | Phone | + +------+ + PCP | Unavailable | + +------+ + Encounter Details +--------+ + + + + | Date | Type | Department | Care Team | Description | +--------+ + + + + | 07/18/ | [facility] | [facility] | Nelson Lutz MD | | | 2002 | Encounter | MED CTR GENERIC OP | [address], [place] | | | | | CONV DEPT [address] | [address] [place] | | | | | [address] [place], | [address] | | | | | [place] [address] | | | | | | [phone] | | | +--------+ + + + [...] | | | | | | [address] [place] | | | | | | [address] | | | | | | | | +--------+---------+ + + + documented as of this encounter Visit Diagnoses Not on filedocumented in this encounter"
--- OUTSIDE RECORDS SUMMARY | ~2019-11-18 | XMS | Encounter Summary ---
Demographics + + + | Address | [address] | | | [place] [address] | + + + | Home Phone [...] Providers + +------+ + | Care Hog Raiser Name | Role | Phone | + +------+ + | Rahul Silva MD | PCP | | + +------+ + Encounter Details +--------+ + + + + | Date | Type | Department | Care Team | Description | +--------+ + + + + | 09/17/ | Orders Only | [facility] | Collin Mirza, | | | 2015 | | NEPHROLOGY [place] | STRIKER [address] | | | | | [address] [place] | [address] | | | | | [address] [place], [place] | [facility] | | | | | [address] | [address] | | | | | [phone] | [phone] | | | | | | | [...] HOSPITAL[facility]HA | | | | | | [address] | | | | | | | [...] | | | LAB | | | [place] | | | | | + + [...]
--- OUTSIDE RECORDS SUMMARY | ~2019-11-18 | XMS | Encounter Summary ---
Demographics + + + | Address | [address] | | | [place] [address] | + + + | Home Phone [...] Providers + +------+ + | Care Car Framer Name | Role | Phone | + [...] + + | 10/04/ | Documentati | [facility] | Simon, | Results (09/30/19) | | 2019 | on | NEPHROLOGY [place] | [facility] | | | | | [address] | Lacquer Polisher | | | | | [address] | | | | | | [place] | | | | | | [address] | | | | | | [phone] | | | +--------+ + + + [...] [place] | | | | | | [address] | | | | | | (Fax) [...]
--- OUTSIDE RECORDS SUMMARY | ~2019-11-18 | XMS | Encounter Summary ---
Demographics + + + | Address | [address] | | | [place] [address] | + + + | Home Phone [...] Team Providers + +------+ + | Care Choker Setter Name | Role | Phone | [...] | Transaction, | | | | | [place], [place] | Provider Unknown | | | | | [address] | | | | | | [phone] | | | +--------+ + + + [...] | Visit | | [address] [facility] | | | | | | [address] [place] | | | | | | [address] | | | | | | | [...]
--- OUTSIDE RECORDS SUMMARY | ~2019-11-18 | XMS | Encounter Summary ---
Demographics + + + | Address | [address] | | | [place] [address] | + + + | Home Phone [...] Team Providers + +------+ + | Care Tooth Cutter Clutch Name | Role | Phone | + [...] Young | | | | | [place], [place] | [place], [place] | | | | | [address] | [address] | | | | | [phone] | [phone] | | | | | | | [...] 2020 | Visit | | [address] [facility] | | | | | | [address] [facility] | | | | | | [address] | | | | | | | [...]
--- OUTSIDE RECORDS SUMMARY | ~2019-11-18 | XMS | Encounter Summary ---
Demographics + + + | Address | [address] | | | [place] [address] | + + + | Home Phone [...] Providers + +------+ + | Care Jewelry Casting Model Maker Apprentice Name | Role | Phone | + +------+ + | Rahul Silva MD | PCP | | + +------+ + Encounter Details +--------+ + + + + | Date | Type | Department | Care Team | Description | +--------+ + + + + | 10/05/ | Orders Only | [facility] | Farrukh Acuna MD | Essential | | 2019 | | NEPHROLOGY [place] | [address] [place] | hypertension | | | | [address] | [address] [facility] [place] | (Primary Dx); Iron | | | | [address] | [address] | deficiency; | | | | [place], [place] | | Secondary | | | | [address] | | hyperparathyroidism | | | | [phone] | | (HCC); CKD (chronic | | [...] HOSPITALRADHA | | | | | | [address] | | | | | | | [...]
--- OUTSIDE RECORDS SUMMARY | ~2019-11-18 | XMS | Encounter Summary ---
Demographics + + + | Address | [address] | | | [place] [address] | + + + | Home Phone [...] Team Providers + +------+ + | Care Pit Crew Support Worker Name | Role | Phone | [...] [address] | | | | | [place], [place] | [place], [place] | | | | | [address] | [address] | | | | | [phone] | [phone] | | | | | | | [...] HOSPITALRADHA | | | | | | [address] | | | | | | | [...]
--- OUTSIDE RECORDS SUMMARY | ~2019-11-18 | XMS | Encounter Summary ---
Demographics + + + | Address | [address] | | | [place] [address] | + + + | Home Phone [...] + | 06/23/ | Orders Only | [facility] | Provider, | Chronic kidney | | 2019 | | SYSTEM GENERIC OP | Jonathan, [address] | disease, stage IV | | | | CONVERSION [address] | [address] | (severe) ([facility]); | | | | [address] [place], [place] | [place] [address] | Persistent | | | | [address] | | proteinuria; | | | | [phone] | | Secondary | | | | | | hyperparathyroidism | | | | | | of renal origin | | | | | | ([facility]); Family | | | | [...] | | | | | | [address] [place], [place] | | | | | | [address] | | | | | | | [...] | | ([facility]) Persistent | | | | [...] | | ([facility]) Persistent | | | | [...] | | ([facility]) Persistent | | | | [...]
--- OUTSIDE RECORDS SUMMARY | ~2019-11-18 | XMS | Encounter Summary ---
Demographics + + + | Address | [address] | | | [place] [address] | + + + | Home Phone [...] Team Providers + +------+ + | Care Keg Varnisher Name | Role | Phone | + +------+ + | Rahul Silva MD | PCP | | + +------+ + Encounter Details +--------+ + + + + | Date | Type | Department | Care Team | Description | +--------+ + + + + | 07/27/ | Orders Only | [facility] | Farrukh Acuna MD | Chronic kidney | | 2019 | | NEPHROLOGY [place] | [address] [place] | disease, stage IV | | | | [address] [place] | [address] [place], [place] | (severe) (HCC); | | | | [address] [place], [place] | [address] | Chronic kidney | | | | [address] | | disease, stage IV | | | | [phone] | | (severe) (HCC); | | | [...] [place] | | | | | | [address] | | | | | | | [...]
--- OUTSIDE RECORDS SUMMARY | ~2019-11-18 | XMS | Encounter Summary ---
Demographics + + + | Address | [address] | | | [place] [address] | + + + | Home Phone [...] Young | | | | | [place], [place] | [place], [place] | | | | | [address] | [address] | | | | | [phone] | | | | | | | [...] 2020 | Visit | | [address] [facility] | | | | | | 160 [facility] | | | | | | [address] | | | | | | | [...]
--- OUTSIDE RECORDS SUMMARY | ~2019-11-18 | XMS | Encounter Summary ---
Demographics + + + | Address | [address] | | | [place] [address] | + + + | Home Phone [...] + +------+ + | Care Supply Chain Tech Name | Role | Phone | + +------+ + | Rahul Silva MD | PCP | | + +------+ + Encounter Details +--------+ + + + + | Date | Type | Department | Care Team | Description | +--------+ + + + + | 10/10/ | Orders Only | [facility] | Farrukh Acuna MD | | | 2013 | | NEPHROLOGY [place] | [address] [place] | | | | | [address] [place] | [address] [place], [place] | | | | | [address] [place], [place] | [address] | | | | | [address] | | | | | | [phone] | | | +--------+ + + + [...] 2019 | Visit | | [address] [facility] | | | | | | 160 [place] | | | | | | [address] | | | | | | | [...]
--- OUTSIDE RECORDS SUMMARY | ~2019-11-18 | XMS | Encounter Summary ---
Demographics + + + | Address | [address] | | | [place] [address] | + + + | Home Phone [...] Team Providers + +------+ + | Care Submarine Advisory Team Watch Officer Name | Role | Phone | [...] [address] | | | | | [place], [place] | [place], [place] | | | | | [address] | [address] | | | | | [phone] | [phone] | | | | | | | [...] HOSPITALRADHA | | | | | | [address] | | | | | | | [...]
--- OUTSIDE RECORDS SUMMARY | ~2019-11-18 | XMS | Encounter Summary ---
Demographics + + + | Address | [address] | | | [place] [address] | + + + | Home Phone [...] [place] | | | | | [address] | | + + + + + Care Team Providers + +------+ + | Care Corporate Accountant Name | Role | Phone | [...] | | | | | | [facility], [address] | | | | | | [place], [place] | | | | | | [address] | | | | | | [phone] | | | +--------+ + + + [...] as of this encounter Progress Notes Interface, Theater Set Production Designer In - 01/09/2007 5:07 AM PST CLINIC DATE: 10/03/97 [facility] - PROGRESS NOTE CHIEF [...] Vargas D.O. Resident, Anesthesiology Nelson Melara M.D. Prison Teacher, Anesthesiology Pain Management Center KAYLEENM/cjv cc: [facility] [place] [address] JESSENIA RODRIGUEZ MD DEPARTMENT OF FAMILY MEDICINE [facility] documented in this encounter Plan of Treatment Not on filedocumented as of this encounter Visit Diagnoses Not on filedocumented in this encounter"
--- OUTSIDE RECORDS SUMMARY | ~2019-11-18 | XMS | Encounter Summary ---
Demographics + + + | Address | [address] | | | [place] [address] | + + + | Home Phone [...] [place] | | | | | [address] | | + + + + + Care Team Providers + +------+ + | Care Healthcare Facility Administrator Name | Role | Phone | [...] Clinic | | | | | | [facility], [address] | | | | | | [place], [place] | | | | | | [address] | | | | | | [phone] | | | +--------+ + + + [...] as of this encounter Progress Notes Interface, Cattle Inspector In - 01/06/2007 5:03 AM PST CLINIC DATE: 11/10/97 [facility] PAIN [facility] - FOLLOW-UP [...] of narcotic medication misuse. Nelson Melara M.D. Homemaking Rehabilitation Consultant, Anesthesiology Pain Management [facility] MANDY/camryn cc: Robert Carlson M.D. Professor, Vascular Surgery documented in this encounter Plan of Treatment Not on filedocumented as of this encounter Visit Diagnoses Not on filedocumented in this encounter"
--- OUTSIDE RECORDS SUMMARY | ~2019-11-18 | XMS | Encounter Summary ---
Demographics + + + | Address | [address] | | | [place] [address] | + + + | Home Phone [...] Team Providers + +------+ + | Care Light Adjuster Name | Role | Phone | + +------+ + | Rahul Silva MD | PCP | | + +------+ + Encounter Details +--------+ + + + + | Date | Type | Department | Care Team | Description | +--------+ + + + + | 07/26/ | Orders Only | [facility] | Farrukh Acuna MD | Chronic kidney | | 2019 | | NEPRHOLOGY [place] | [address] | disease, stage IV | | | | [address] | [address] [place], [place] | (severe) (HCC); | | | | [address] [place], [place] | [address] | Persistent | | | | [address] | | proteinuria; | | | | [phone] | | Secondary | | | | [...] | | | | | | [address] [place], [place] | | | | | | [address] | | | | | | | [...]
--- OUTSIDE RECORDS SUMMARY | ~2019-11-18 | XMS | Encounter Summary ---
Demographics + + + | Address | [address] | | | [place] [address] | + + + | Home Phone [...] [place] | | | | | [address] | | + + + + + Care Team Providers + +------+ + | Care Membership Solicitor Name | Role | Phone | + [...] | | | | | | [place], | | | | | | [place] [address] | | | | | | [phone] | | | +--------+ + + + [...] as of this encounter Discharge Summaries Interface, Associate Juvenile Court Judge In - 02/05/2007 1:03 AM PST [address] [address] [facility] MEDICAL SUMMARY OF HOSPITALIZATION Med Rec No.: [id number] Admission Date: 12/28/96 Name: Kavon Andujar Discharge Date: 01/03/97 STAFF PHYSICIAN: Robert Carlson M.D. Professor, Vascular Surgery PRINCIPAL FINAL DIAGNOSIS: Osteophyte of left newfe-nee-yhds amputation stump. ADDITIONAL DIAGNOSES: Phantom pain. PRINCIPAL PROCEDURE: Revision of left urrbg-ths-gknn amputation stump and excision of left stump osteophyte. 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 Since then he has had pain in the stump. On a computed tomography (CT) scan, it was noted that he had a large bone spur and a cyst in his stump site. HOSPITAL COURSE: The patient was admitted on December 28 and underwent revision of his left omqnk-opc-umiq amputation stump with excision of his left [...] Normal. 3. DIET: Normal. Nick Noriega M.D. Survey Crew Chief, General Surgery Robert Carlson M.D. Professor, Vascular Surgery DOMINIC/jc A cc: RUBIA KNAPP MD [address] [facility] [address] documented in this encounter Plan of Treatment Not on filedocumented as of this encounter Visit Diagnoses Not on filedocumented in this encounter"
--- OUTSIDE RECORDS SUMMARY | ~2019-11-18 | XMS | Encounter Summary ---
Demographics + + + | Address | [address] | | | [place] [address] | + + + | Home Phone [...] Providers + +------+ + | Care Data Analysis Manager Name | Role | Phone [...] + + | 08/18/ | Refill | [facility] | Sandy Capellan | Medication Refill | | 2019 | | NEPRHOLOGY PAIGE Valadez RN | | | | | [address] | | | | | | [address] [place], [place] | | | | | | [address] | | | | | | [phone] | | | +--------+--------+ + + + [...] [place] | | | | | | [address] | | | | | | | [...]
--- OUTSIDE RECORDS SUMMARY | ~2019-11-18 | XMS | Encounter Summary ---
Demographics + + + | Address | [address] | | | [place] [address] | + + + | Home Phone [...] Providers + +------+ + | Care [employer] Former Machine Operator Name | Role | Phone [...] | Transaction, | | | | | [place], [place] | Provider Unknown | | | | | [address] | | | | | | [phone] | | | +--------+ + + + [...] 2020 | Visit | | [address] [facility] | | | | | | [address] [place] | | | | | | [address] | | | | | | | [...] EXTERNAL LAB | | Ordering Provider: , VNEKAT MUELLER A , , [place], | | [...]
--- OUTSIDE RECORDS SUMMARY | ~2019-11-18 | XMS | Encounter Summary ---
Demographics + + + | Address | [address] | | | [place] [address] | + + + | Home Phone [...] Providers + +------+ + | Care Rn Allergy Name | Role | Phone | + +------+ + | Rahul Silva MD | PCP | | + +------+ + Encounter Details +--------+ + + + + | Date | Type | Department | Care Team | Description | +--------+ + + + + | 11/10/ | Orders Only | [facility] | Farrukh Acuna MD | | | 2017 | | NEPHROLOGY [place] | [address] [place] | | | | | [address] [place] | [address] [place], [place] | | | | | [address] [place], [place] | [address] | | | | | [address] | | | | | | [phone] | | | +--------+ + + + [...] [place] | | | | | | [address] | | | | | | | [...]
--- OUTSIDE RECORDS SUMMARY | ~2019-11-18 | XMS | Encounter Summary ---
Demographics + + + | Address | [address] | | | [place] [address] | + + + | Home Phone [...] Providers + +------+ + | Care Coding Manager Name | Role | Phone | + +------+ + | Rahul Silva MD | PCP | | + +------+ + Encounter Details +--------+ + + + + | Date | Type | Department | Care Team | Description | +--------+ + + + + | 05/22/ | Orders Only | [facility] | Farrukh Acuna MD | | | 2018 | | NEPHROLOGY [place] | [address] [place] | | | | | [address] [place] | [address] [place], [place] | | | | | [address] [place], [place] | [address] | | | | | [address] | | | | | | [phone] | | | +--------+ + + + [...] [place] | | | | | | [address] | | | | | | | [...] | | | LAB | | | [place] CITIZ[place] | | | | | + [...]
--- OUTSIDE RECORDS SUMMARY | ~2019-11-18 | XMS | Encounter Summary ---
Demographics + + + | Address | [address] | | | [place] [address] | + + + | Home Phone [...] + | 11/27/ | Orders Only | [facility] | Conversion | | | 2017 | | NEPHROLOGY [place] | Transaction, | | | | | [address] | Provider Unknown | | | | | [address] [place] | | | | | | [address] | (Fax) | | | | | [phone] | | | +--------+ + + + [...] | | | | | [facility] | | | | | | [address] | | | | | | | [...]
--- OUTSIDE RECORDS SUMMARY | ~2019-11-18 | XMS | Encounter Summary ---
Demographics + + + | Address | [address] | | | [place] [address] | + + + | Home Phone [...] Team Providers + +------+ + | Care Roller Coaster Operator Name | Role | Phone | [...] + + | 09/03/ | Telephone | [facility] | Simon, | Lab Results | | 2019 | | NEPHROLOGY [place] | [place] [facility] | | | | | [address] [place] | Crime Investigator Special Agent | | | | | [address] [place], [place] | | | | | | [address] | | | | | | [phone] | | | +--------+ + + + [...] | | | | | | [address] [place] | | | | | | [address] | | | | | | | | +--------+---------+ + + + documented as of this encounter Visit Diagnoses Not on filedocumented in this encounter"
--- OUTSIDE RECORDS SUMMARY | ~2019-11-18 | XMS | Encounter Summary ---
Demographics + + + | Address | [address] | | | [place] [address] | + + + | Home Phone [...] Providers + +------+ + | Care Manager Transmission Name | Role | Phone | + [...] + + | 10/04/ | Documentati | [facility] | Simon, | Results (09/30/19) | | 2019 | on | NEPHROLOGY [place] | [place] [facility] | | | | | [address] | Children'S Nursery Assistant | | | | | [address] | | | | | | [place] | | | | | | [address] | | | | | | [phone] | | | +--------+ + + + [...] [place] | | | | | | [address] | | | | | | (Fax) [...]
--- OUTSIDE RECORDS SUMMARY | ~2019-11-18 | XMS | Encounter Summary ---
Demographics + + + | Address | [address] | | | [place] [address] | + + + | Home Phone [...] Providers + +------+ + | Care Bridge Contractor Name | Role | Phone | + +------+ + | Rahul Silva MD | PCP | | + +------+ + Encounter Details +--------+ + + + + | Date | Type | Department | Care Team | Description | +--------+ + + + + | 07/11/ | Orders Only | [facility] | Farrukh Acuna MD | | | 2013 | | NEPHROLOGY [place] | [address] [place] | | | | | [address] [place] | [address] [place], [place] | | | | | [address] [place], [place] | [address] | | | | | [address] | | | | | | [phone] | | | +--------+ + + + [...] | | | | | | [address] [place] | | | | | | [address] | | | | | | | [...] | | | LAB | | | CHADIAN | | | | | + + [...]
--- OUTSIDE RECORDS SUMMARY | ~2019-11-18 | XMS | Encounter Summary ---
Demographics + + + | Address | [address] | | | [place] [address] | + + + | Home Phone [...] [place] | | | | | [address] | | + + + + + Care Team Providers + +------+ + | Care Logistics Associate Name | Role | Phone | [...] Clinic | | | | | | [facility], [address] | | | | | | [place], [place] | | | | | | [address] | | | | | | [phone] | | | +--------+ + + + [...] as of this encounter Progress Notes Interface, Senior Qc Technician In - 01/06/2007 5:03 AM PST CLINIC DATE: 10/31/97 [facility] - PROCEDURE NOTE [...] his left thigh stump. Nelson Melara M.D. Video Specialist, [facility] MANDY/maryjo documented in this encounter Plan of Treatment Not on filedocumented as of this encounter Visit Diagnoses Not on filedocumented in this encounter"
--- OUTSIDE RECORDS SUMMARY | ~2019-11-18 | XMS | Encounter Summary ---
Demographics + + + | Address | [address] | | | [place] [address] | + + + | Home Phone [...] [place] | | | | | [address] | | + + + + + Care Team Providers + +------+ + | Care Log Sorting Supervisor Name | Role | Phone | [...] [address] | | | | | | [place], [place] | | | | | | [address] | | | +--------+ + + + [...] as of this encounter Progress Notes Interface, Check Writer Salesperson In - 03/27/2007 3:12 AM PDT CLINIC [...] an abnormal AC-BE, he was referred to [facility] for colonoscopy. MEDICATIONS: 1. Vicodin. 2. [...] Dr. Valles who is his physician in [place], [place]. He has made me aware that [...] M.D. Fellow, Gastroenterology SHANEL/stephon cc: ARIA WATKINS [facility] [place] documented in this encounter Plan of Treatment Not on filedocumented as of this encounter Visit Diagnoses Not on filedocumented in this encounter"
--- OUTSIDE RECORDS SUMMARY | ~2019-11-18 | XMS | Encounter Summary ---
Demographics + + + | Address | [address] | | | [place] [address] | + + + | Home Phone [...] + +------+ + | Care Entry Level Mechanical Engineer Name | Role | Phone | + +------+ + | Rahul Silva MD | PCP | | + +------+ + Encounter Details +--------+ + + + + | Date | Type | Department | Care Team | Description | +--------+ + + + + | 07/17/ | Orders Only | [facility] | Conversion | | | 2016 | | NEPHROLOGY [place] | Transaction, | | | | | [address] | Provider Unknown | | | | | [address] [place] | | | | | | [address] | (Fax) | | | | | [phone] | | | +--------+ + + + [...] | | | | | [address] [facility] | | | | | | [address] | | | | | | | [...]
--- OUTSIDE RECORDS SUMMARY | ~2019-11-18 | XMS | Encounter Summary ---
Demographics + + + | Address | [address] | | | [place] [address] | + + + | Home Phone [...] [place] | | | | | [address] | | + + + + + Care Team Providers + +------+ + | Care Industrial Boilermaker Name | Role | Phone | + [...] Clinic | | | | | | [facility], [address] | | | | | | [place], [place] | | | | | | [address] | | | | | | [phone] | | | +--------+ + + + [...] of this encounter Progress Notes Interface, Energy Efficiency Finance Manager In - 01/06/2007 5:03 AM PST CLINIC DATE: 11/10/97 [facility] - FOLLOW-UP [...] of narcotic medication misuse. Nelson Melara M.D. Chief Passenger Ship Steward/Stewardess, [facility] MANDY/camryn cc: Robert Carlson M.D. Professor, Vascular Surgery documented in this encounter Plan of Treatment Not on filedocumented as of this encounter Visit Diagnoses Not on filedocumented in this encounter"
--- OUTSIDE RECORDS SUMMARY | ~2019-11-18 | XMS | Encounter Summary ---
Demographics + + + | Address | [address] | | | [place] [address] | + + + | Home Phone [...] Team Providers + +------+ + | Care Cannon Pinion Adjuster Name | Role | Phone | [...] [address] | | | | | [place], [place] | [place], [place] | | | | | [address] | [address] | | | | | [phone] | [phone] | | | | | | | [...] 2020 | Visit | | [address] [facility] | | | | | | [address] [facility] | | | | | | [address] | | | | | | | [...]
--- OUTSIDE RECORDS SUMMARY | ~2019-11-18 | XMS | Encounter Summary ---
Demographics + + + | Address | [address] | | | [place] [address] | + + + | Home Phone [...] Providers + +------+ + | Care Access Nurse Name | Role | Phone | [...] + + | 09/01/ | Telephone | [facility] | Brian Orosco MD | Advice Only | | 2019 | | VASCULAR SURGERY | [address] | (surgery) | | | | [address] [place] | [place], [place] | | | | | [place], [place] | [address] | | | | | [address] | [phone] | | | | | [phone] | | | +--------+ + + + [...] CENT[place] | | | | | | [address] | | | | | | | | +--------+---------+ + + + documented as of this encounter Visit Diagnoses Not on filedocumented in this encounter"
--- OUTSIDE RECORDS SUMMARY | ~2019-11-18 | XMS | Encounter Summary ---
Demographics + + + | Address | [address] | | | [place] [address] | + + + | Home Phone [...] Team Providers + +------+ + | Care Yoga Coordinator Name | Role | Phone | + +------+ + | Rahul Silva MD | PCP | | + +------+ + Encounter Details +--------+ + + + + | Date | Type | Department | Care Team | Description | +--------+ + + + + | 06/23/ | Orders Only | [facility] | Provider, | Chronic kidney | | 2019 | | SYSTEM GENERIC OP | Jonathan, [address] | disease, stage IV | | | | CONVERSION [address] | [address] | (severe) ([facility]); | | | | [address] [place], [place] | [place] [address] | Persistent | | | | [address] | | proteinuria; | | | | [phone] | | Secondary | | | | | | hyperparathyroidism | | | | | | of renal origin | | | | | | ([facility]); Family | | | | [...] | | | | | | [address] [place], [place] | | | | | | [address] | | | | | | | [...] origin | | | | | | ([facility]) Persistent | | | [...] origin | | | | | | ([facility]) Persistent | | | [...] origin | | | | | | ([facility]) Persistent | | | [...]
--- OUTSIDE RECORDS SUMMARY | ~2019-11-18 | XMS | Encounter Summary ---
Demographics + + + | Address | [address] | | | [place] [address] | + + + | Home Phone [...] Team Providers + +------+ + | Care Second Vp Hr Assessment Name | Role | Phone | + [...] [place] | | | | | | [address] | (Fax) | | | | | [phone] | | | +--------+ + + + [...] | | | | | | [address] [facility] | | | | | | [address] | | | | | | | [...]
--- OUTSIDE RECORDS SUMMARY | ~2019-11-18 | XMS | Encounter Summary ---
Demographics + + + | Address | [address] | | | [place] [address] | + + + | Home Phone [...] Providers + +------+ + | Care Seafood Specialist Name | Role | Phone | [...] [address] | | | | | [place], [place] | [place], [place] | | | | | [address] | [address] | | | | | [phone] | [phone] | | | | | | | [...] HOSPITAL[facility] | | | | | | [address] | | | | | | | [...]
--- OUTSIDE RECORDS SUMMARY | ~2019-11-18 | XMS | Encounter Summary ---
Demographics + + + | Address | [address] | | | [place] [address] | + + + | Home Phone [...] Team Providers + +------+ + | Care Semiconductor Packages Sealer Name | Role | Phone | [...] [address] | | | | | [place], [place] | [place] [address] | | | | | [address] | | | | | | [phone] | (Fax) | | +--------+ + + [...] 12/06/ | Office | Nephrology | Farrukh Aucna MD | | | 2020 | Visit | | [address] [facility] | | | | | | [address] [facility], [place] | | | | | | [address] | | | | | | | [...] pressures of 5-10mmHg. MEASUREMENTS | | | Wildlife Control Agent: MARLENA Authenticated by: KAI BIRMINGHAM MD Report [...] venous pressures of 5-10mmHg. | | MEASUREMENTS Wildlife Control Agent: DHAuthenticated by: KAI BIRMINGHAM [facility] | | Date/Time: 03-27-2016 13:39:46 IMPRESSION: [...] | |MEASUREMENTS | | | | | |Wildlife Control Agent: MARLENA | |Authenticated by: KAI BIRMINGHAM MD [...]
--- OUTSIDE RECORDS SUMMARY | ~2019-11-18 | XMS | Encounter Summary ---
Demographics + + + | Address | [address] | | | [place] [address] | + + + | Home Phone [...] Team Providers + +------+ + | Care Sweatband Maker Name | Role | Phone | [...] ([facility]) | [place], [place] | | | | | | Procedures | [address] | | | | | | VAS Arm | Phone: | | | | | | Bilateral | [phone] | | | | | | Mapping For | Fax: | | | | | | Dialysis | [phone] | | +--------+--------+ + + + + Reason for Visit + + + | Reason | Comments | + + + | Referral Consult | | + + + Encounter Details +--------+ + + + + | Date | Type | Department | Care Team | Description | +--------+ + + + + | 07/30/ | Telephone | [facility] | Trisha Conner DNP | Referral Consult | | 2019 | | CARDIOTHORACIC | [address] | | | | | SURGERY [address] | [place], [place] | | | | | [address] | [address] | | | | | [place], [place] | | | | | | [address] | | | | | | [phone] | | | +--------+ + + + [...] | | | | | | [address] [place] | | | | | | [address] | | | | | | | [...] | | | | Signed by: Pravin bAreu Chet | | Sign Date/Time: 08/20/2019 4:23 [...]
--- OUTSIDE RECORDS SUMMARY | ~2019-11-18 | XMS | Encounter Summary ---
Demographics + + + | Address | [address] | | | [place] [address] | + + + | Home Phone [...] Providers + +------+ + | Care Dairy Frozen Manager Name | Role | Phone | [...] + + | 09/28/ | Telephone | [facility] | aJson Sandy D, | Appointment | | 2018 | | VASCULAR SURGERY | RN | | | | | [address] | | | | | | [place] | | | | | | [address] | | | | | | [phone] | | | +--------+ + + + [...] | | | | | | [address] [place] | | | | | | [address] | | | | | | | | +--------+---------+ + + + documented as of this encounter Visit Diagnoses Not on filedocumented in this encounter"
--- OUTSIDE RECORDS SUMMARY | ~2019-11-18 | XMS | Encounter Summary ---
Demographics + + + | Address | [address] | | | [place] [address] | + + + | Home Phone [...] Team Providers + +------+ + | Care Cooperative Extension Agent Name | Role | Phone | [...] [address] | | | | | [place], [place] | [place], [place] | | | | | [address] | [address] | | | | | [phone] | [phone] | | | | | | | [...] HOSPITAL[facility] | | | | | | [address] | | | | | | | [...]
--- OUTSIDE RECORDS SUMMARY | ~2019-11-18 | XMS | Encounter Summary ---
Demographics + + + | Address | [address] | | | [place] [address] | + + + | Home Phone [...] Providers + +------+ + | Care Commercial Loan Processor Name | Role | Phone [...] | | | | ([facility]LY [facility]) | | | [...] + + | 09/10/ | Hospital | [facility] | Brian Orosco MD | CKD (chronic kidney | | 2019 | Encounter | [facility] | [address] | disease) stage 5, | | | | OPERATING ROOM [address] | [place], [place] | GFR less than 15 | | | | [address] | [address] | ml/min ([facility]) | | | | [place], [place] | [phone] | | | | | [address] | | | | | | [phone] | | | +--------+ + + + [...] dialysis shunt, please contact your ysician at [phone]. Discharge instructions for Diagnostic Imaging sedation patients [...] . For any severe symptoms, please call [phone] or report to your nearest Emergency Department. Acetaminophen; Hydrocodone tablets or capsules Brand Names: Anexsia, Lorcet, Lorcet HD, Lorcet Plus, Lortab, Elko, Verdrocet, Vicodin, Vi codin ES, Vicodin HP, [...] information carefully each time. Talk to your fish icer regarding the use of this medicine in children. Special care may be needed. What side effects may I notice from receiving this medicine? Side effects that you should report to your doctor or health behavioral health care manager as soon as p ossible: allergic [...] attention (report to your doctor or health behavioral health care manager if they continue or are bothersome): [...] to an official disposal site. Contact the [facility] at [phone] or your [facility] to find a site. If [...] this medicine? Tell your doctor or health behavioral health care manager if your pain does not go [...] cuts, scrapes, or blows. Date Last Reviewed: 12/01/20161999[address]89-[address] [place], [place] [address]. All righ ts reserved. This information is [...] | | | | ([facility]), Secondary | | | | | | | hyperparathyroidism | | | | | | | ([facility]) | | | [...] and bl ood clots prevention. Prescription for Elko given and side effects were explained. Patient states that he also takes oxycodone at home; patient and his family were educated about taki ng oxycodone or Elko only and not both. OTC Tylenol intake [...] | | | | | | [address] [place], [place] | | | | | | [address] | | | | | | | [...] Testing | 65 - 99 mg/dL | [facility] | | | POC | performed at [facility];[address] | | LABORATORY | | | | [address];[place] | | | | | | [address] | | | | + + + + + + + + | Specimen | + + | | + + + + + + + | Performing | Address | City/State/Zipcode | Phone Number | | Organization | | | | + + + + + | [facility] | [address] | [place] [address] | [phone] | + + + + + POC [...] | | | POC | performed at [facility];[address] | | LABORATORY | | | | [address];[place], [place] | | | | | | [address] | | | | + + + + + + + + | Specimen | + + | | + + + + + + + | Performing | Address | City/State/Zipcode | Phone Number | | Organization | | | | + + + + + | [facility] | [address] | [place] [address] | [phone] | + + + + + documented [...] One week or | | | longer, ifjjin-yyk-vuulj use of | | | at least [...]
--- OUTSIDE RECORDS SUMMARY | ~2019-11-18 | XMS | Encounter Summary ---
Demographics + + + | Address | [address] | | | [place] [address] | + + + | Home Phone [...] Team Providers + +------+ + | Care Experimental Mechanic Outboard Motors Name | Role | Phone | + +------+ + | Rahul Silva MD | PCP | | + +------+ + Encounter Details +--------+ + + + + | Date | Type | Department | Care Team | Description | +--------+ + + + + | 03/13/ | Orders Only | [facility] | Conversion | | | 2016 | | NEPHROLOGY [place] | Transaction, | | | | | [address] | Provider Unknown | | | | | [address] [place] | | | | | | [address] | (Fax) | | | | | [phone] | | | +--------+ + + + [...] [facility]ENT[facility] | | | | | | [address] | | | | | | | [...] - 1.030 | EXTERNAL | | | [place] | | | LAB | | + [...]
--- OUTSIDE RECORDS SUMMARY | ~2019-11-18 | XMS | Encounter Summary ---
Demographics + + + | Address | [address] | | | [place] [address] | + + + | Home Phone [...] Providers + +------+ + | Care Field Sales Manager Name | Role | Phone | + +------+ + | Rahul Silva MD | PCP | | + +------+ + Encounter Details +--------+ + + + + | Date | Type | Department | Care Team | Description | +--------+ + + + + | 06/12/ | Orders Only | [facility] | Farrukh Acuna MD | | | 2017 | | NEPHROLOGY [place] | [address] [place] | | | | | [address] [place] | [address] [place], [place] | | | | | [address] [place], [place] | [address] | | | | | [address] | | | | | | [phone] | | | +--------+ + + + [...] [place] | | | | | | [address] | | | | | | | [...]
--- OUTSIDE RECORDS SUMMARY | ~2019-11-18 | XMS | Encounter Summary ---
Demographics + + + | Address | [address] | | | [place] [address] | + + + | Home Phone [...] Providers + +------+ + | Care Offset Platemaker Name | Role | Phone | + [...] Young | | | | | [place], [place] | [place], [place] | | | | | [address] | [address] | | | | | [phone] | [phone] | | | | | | | [...] HOSPITAL[facility] | | | | | | [address] | | | | | | | [...] + | Attending/Visit Provider: , TAE WATKINS, LEONOAR, , , , , [facility], | EXTERNAL [...]
--- OUTSIDE RECORDS SUMMARY | ~2019-11-18 | XMS | Encounter Summary ---
Demographics + + + | Address | [address] | | | [place] [address] | + + + | Home Phone [...] Providers + +------+ + | Care Senior Billing Consultant Name | Role | Phone | + +------+ + | Rahul Silva MD | PCP | | + +------+ + Encounter Details +--------+ + + + + | Date | Type | Department | Care Team | Description | +--------+ + + + + | 02/12/ | Orders Only | [facility] | Farrukh Acuna MD | | | 2018 | | NEPHROLOGY [place] | [address] [place] | | | | | [address] [place] | [address] [place], [place] | | | | | [address] [place], [place] | [address] | | | | | [address] | | | | | | [phone] | | | +--------+ + + + [...] 2020 | Visit | | [address] [facility] | | | | | | [address] [place] | | | | | | [address] | | | | | | | [...] | | | LAB | | | [place] | | | | | + + [...]
--- OUTSIDE RECORDS SUMMARY | ~2019-11-18 | XMS | Encounter Summary ---
Demographics + + + | Address | [address] | | | [place] [address] | + + + | Home Phone [...] Team Providers + +------+ + | Care Habitat Biologist Name | Role | Phone | + [...] + + | 09/13/ | Telephone | [facility] | Terri Aguilar, | Follow-up | | 2018 | | VASCULAR SURGERY | Consignee | | | | | [address] | | | | | | E [facility] [place] | | | | | | [address] | | | | | | [phone] | | | +--------+ + + + [...] | Visit | | [address] [facility] | | | | | | [address] [place] | | | | | | [address] | | | | | | | | +--------+---------+ + + + documented as of this encounter Visit Diagnoses Not on filedocumented in this encounter"
--- OUTSIDE RECORDS SUMMARY | ~2019-11-18 | XMS | Encounter Summary ---
Demographics + + + | Address | [address] | | | [place] [address] | + + + | Home Phone [...] [place] | | | | | [address] | | + + + + + Care Team Providers + +------+ + | Care Debit Agent Name | Role | Phone | [...] [id number] | | | | | | [place], [place] | | | | | | [address] | | | | | | [phone] | | | +--------+ + + + [...] | + + + + + | [facility] | [address] | [place] [address] | | | PATHOLOGY | [address] [...] | + + + + + | [facility] | [address] | [place] [address] | | | PATHOLOGY | [address] [...] | + + + + + | [facility] | [address] | [place] [address] | | | PATHOLOGY | [address] [...] | + + + + + | [facility] | [address] | [place] [address] | | | PATHOLOGY | [address] | | | + + + + + documented in this encounter Visit Diagnoses Not on filedocumented in this encounter
--- OUTSIDE RECORDS SUMMARY | ~2019-11-18 | XMS | Encounter Summary ---
Demographics + + + | Address | [address] | | | [place] [address] | + + + | Home Phone [...] [place] | | | | | [address] | | + + + + + Care Team Providers + +------+ + | Care Library Services Dean Name | Role | Phone | [...] Clinic | | | | | | [facility], [address] | | | | | | [place], [place] | | | | | | [address] | | | | | | [phone] | | | +--------+ + + + [...] as of this encounter Progress Notes Interface, Porcelain Enamel Laborer In - 01/03/2007 5:08 AM PST CLINIC DATE: 12/22/97 Mr. Andujar is referred by Dr. Jerry Smiley in the [facility]. He is currently followed by the Anesthesia Pain Service at [facility], and also recently has been followed by [...] under Dr. Robert Carlson's supervision here at [facility]. His pain continued, exacerbated by a fall [...] procedure at this time. Eric Mcclure M.D. Economic Research Assistant, Department of Orthopaedics and Rehabilitation AY/egl A cc: Jerry Smiley M.D. (with letter) [address] [place] [address] [address] [place] [address] Robert Carlson M.D. FAX: [phone] Alina Moise M.D. FAX: [phone] [facility] ClinicFAX: [phone] documented in this encounter Plan of Treatment Not on filedocumented as of this encounter Visit Diagnoses Not on filedocumented in this encounter
--- OUTSIDE RECORDS SUMMARY | ~2019-11-18 | XMS | Encounter Summary ---
Demographics + + + | Address | [address] | | | [place] [address] | + + + | Home Phone [...] + +------+ + | Care Solar Electric Practitioner Name | Role | Phone | [...] [address] | | | | | [place], [place] | [place], [place] | | | | | [address] | [address] | | | | | [phone] | [phone] | | | | | | | [...] | | | | | [facility] | | | | | | [address] | | | | | | | [...]
--- OUTSIDE RECORDS SUMMARY | ~2019-11-18 | XMS | Encounter Summary ---
Demographics + + + | Address | [address] | | | [place] [address] | + + + | Home Phone [...] Providers + +------+ + | Care Document Controller Name | Role | Phone | [...] | | | [address] [place], [place] | [address] | (Primary Dx); Stage | | | | [address] | | 4 chronic kidney | | | | [phone] | | disease (HCC); | | | [...] | | | | [address] [facility] | | | | | | [address] | | | | | | | [...]
--- OUTSIDE RECORDS SUMMARY | ~2019-11-18 | XMS | Encounter Summary ---
Demographics + + + | Address | [address] | | | [place] [address] | + + + | Home Phone [...] Team Providers + +------+ + | Care King Maker Name | Role | Phone | [...] + | 08/25/ | Telephone | [facility] | Brian Orosco MD | New Patient (08/26 | | 2019 | | VASCULAR SURGERY | [address] | appointment) | | | | [address] [place] | [place], [place] | | | | | [place], [place] | [address] | | | | | [address] | [phone] | | | | | [phone] | | | +--------+ + + + [...] [place] | | | | | | [address] | | | | | | | | +--------+---------+ + + + documented as of this encounter Visit Diagnoses Not on filedocumented in this encounter"
--- OUTSIDE RECORDS SUMMARY | ~2019-11-18 | XMS | Encounter Summary ---
Demographics + + + | Address | [address] | | | [place] [address] | + + + | Home Phone [...] Team Providers + +------+ + | Care Pearl Fisherman Name | Role | Phone | + [...] 09/01/ | Telephone | [facility] | Brian Orosco MD | Advice Only | | 2019 | | VASCULAR SURGERY | [address] | (surgery) | | | | [address] [place] | [place], [place] | | | | | [place] | [address] | | | | | [address] | [phone] | | | | | [phone] | | | +--------+ + + + [...] HOSPITALRADHA | | | | | | [address] | | | | | | | | +--------+---------+ + + + documented as of this encounter Visit Diagnoses Not on filedocumented in this encounter"
--- OUTSIDE RECORDS SUMMARY | ~2019-11-18 | XMS | Encounter Summary ---
Demographics + + + | Address | [address] | | | [place] [address] | + + + | Home Phone [...] Providers + +------+ + | Care Communications Director Name | Role | Phone | + +------+ + | Rahul Silva MD | PCP | | + +------+ + Encounter Details +--------+ + + + + | Date | Type | Department | Care Team | Description | +--------+ + + + + | 11/08/ | Orders Only | [facility] | Olmna Toussaint MD | | | 2015 | | [address] | [address] | | | | | [place], [place] | [place], [place] | | | | | [address] | [address] | | | | | [phone] | [phone] | | | | | | | [...] CENT[facility] | | | | | | [address] | | | | | | | [...]
--- OUTSIDE RECORDS SUMMARY | ~2019-11-18 | XMS | Encounter Summary ---
Demographics + + + | Address | [address] | | | [place] [address] | + + + | Home Phone [...] Team Providers + +------+ + | Care Finisher Screwdown Name | Role | Phone | + [...] [address] | | | | | [place], [place] | [place], [place] | | | | | [address] | [address] | | | | | [phone] | [phone] | | | | | | | [...] | | | | [address] [facility] | | | | | | [address] | | | | | | | [...]
--- OUTSIDE RECORDS SUMMARY | ~2019-11-18 | XMS | Encounter Summary ---
Demographics + + + | Address | [address] | | | [place] [address] | + + + | Home Phone [...] [place] | | | | | [address] | | + + + + + Care Team Providers + +------+ + | Care Network Systems Integrator Name | Role | Phone | + [...] | | | | | | [facility] | | | | | | [place] [address] | | | | | | [phone] | | | +--------+ + + + [...] as of this encounter Progress Notes Interface, Fire Boat Engineer In - 01/22/2007 3:04 AM PST [address] [address] or June 07, 1997 Pravin VALLES MD [address] [place] [address] [place] [address] RE:Kavon Andujar MR#:[id number] Valles: I saw Kavon Andujar in the Neurology Clinic today and have enclosed a copy of my note. 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 [...] over the telephone. Sincerely, Michelle Landon M.D. Graphic Illustrator, Neurology JINNY/ C: 06/13/97 cc: Alina Moise M.D. Division of Neurosurgery [facility] Robert Carlson M.D. Division of Vascular Surgery [facility] documented in this encounter Plan of Treatment Not on filedocumented as of this encounter Visit Diagnoses Not on filedocumented in this encounter
--- OUTSIDE RECORDS SUMMARY | ~2019-11-18 | XMS | Encounter Summary ---
Demographics + + + | Address | [address] | | | [place] [address] | + + + | Home Phone [...] Providers + +------+ + | Care Software Qa Manager Name | Role | Phone | + +------+ + | Rahul Silva MD | PCP | | + +------+ + Encounter Details +--------+ + + + + | Date | Type | Department | Care Team | Description | +--------+ + + + + | 07/11/ | Orders Only | [facility] | Farrukh Acuna MD | | | 2013 | | NEPHROLOGY [place] | [address] [place] | | | | | [address] [place] | [address] [place], [place] | | | | | [address] [place], [place] | [address] | | | | | [address] | | | | | | [phone] | | | +--------+ + + + [...] 2019 | Visit | | [address] [facility] | | | | | | 160 [place] | | | | | | [address] | | | | | | | [...]
--- OUTSIDE RECORDS SUMMARY | ~2019-11-18 | XMS | Encounter Summary ---
Demographics + + + | Address | [address] | | | [place] [address] | + + + | Home Phone [...] Providers + +------+ + | Care Aircraft Designer Name | Role | Phone | [...] [address] | | | | | [place], [place] | [place], [place] | | | | | [address] | [address] | | | | | [phone] | | | | | | | [...] 2020 | Visit | | [address] [facility] | | | | | | [address] [facility] | | | | | | [address] | | | | | | | [...]
--- OUTSIDE RECORDS SUMMARY | ~2019-11-18 | XMS | Encounter Summary ---
Demographics + + + | Address | [address] | | | [place] [address] | + + + | Home Phone [...] Providers + +------+ + | Care Senior Graduate Advisor Name | Role | Phone | [...] [address] | | | | | [place], [place] | [place], [place] | | | | | [address] | [address] | | | | | [phone] | [phone] | | | | | | | [...] HOSPITAL[facility] | | | | | | [address] | | | | | | | [...]
--- OUTSIDE RECORDS SUMMARY | ~2019-11-18 | XMS | Encounter Summary ---
Demographics + + + | Address | [address] | | | [place] [address] | + + + | Home Phone [...] Team Providers + +------+ + | Care Visual Merchandise Manager Name | Role | Phone | + +------+ + | Rahul Silva MD | PCP | | + +------+ + Encounter Details +--------+ + + + + | Date | Type | Department | Care Team | Description | +--------+ + + + + | 05/27/ | Orders Only | [facility] | Conversion | | | 2019 | | NEPHROLOGY [place] | Transaction, | | | | | [address] | Provider Unknown | | | | | 160 [place] | | | | | | [address] | (Fax) | | | | | [phone] | | | +--------+ + + + [...] | [address] [facility] | | | | | | [address] | | | | | | | [...]
--- OUTSIDE RECORDS SUMMARY | ~2019-11-18 | XMS | Encounter Summary ---
Demographics + + + | Address | [address] | | | [place] [address] | + + + | Home Phone [...] Team Providers + +------+ + | Care Enrichment Assistant Name | Role | Phone | [...] [address] | | | | | [place], [place] | [place], [place] | | | | | [address] | [address] | | | | | [phone] | [phone] | | | | | | | [...] HOSPITAL[facility] | | | | | | [address] | | | | | | | [...]
--- OUTSIDE RECORDS SUMMARY | ~2019-11-18 | XMS | Encounter Summary ---
Demographics + + + | Address | [address] | | | [place] [address] | + + + | Home Phone [...] Providers + +------+ + | Care Auto Clocks Repairer Name | Role | Phone | [...] + + | 10/19/ | Documentati | [facility] | Simon, | Results (09/22/19) | | 2019 | on | NEPHROLOGY [place] | [facility] | | | | | [address] | Flight Operations Dispatch Clerk | | | | | [address] | | | | | | [place] | | | | | | [address] | | | | | | [phone] | | | +--------+ + + + [...] [place] | | | | | | [address] | | | | | | (Fax) [...]
--- OUTSIDE RECORDS SUMMARY | ~2019-11-18 | XMS | Encounter Summary ---
Demographics + + + | Address | [address] | | | [place] [address] | + + + | Home Phone [...] Providers + +------+ + | Care Hog Killer Name | Role | Phone | + [...] Venkata Carroll | | | 2019 | [facility] | [address] | | | | | OPERATING ROOM [address] | | | | | [address] | [place] [address] | | | | | [place], [place] | [phone] | | | | | [address] | | | | | | [phone] | | | +--------+ + + + + Anesthesia Record + + + + + | Procedure Name | Responsible | Anesthesia Start | Anesthesia Stop Time | | | Anesthesiologist | Time | | + + + + + | INSERTION AV FISTULA | Venkata Carroll, | 09/10/19 1307 | 09/10/19 1401 | | (Right BBF) (Right | TRAIN BRAKEMAN | | | | Arm Upper) | [...] 09/10/19 1600 by | | amor | ixae-gwy-phxmxa catheter system; | Trinidad Ramírez | Leana [...] 2020 | Visit | | [address] [facility] | | | | | | 160 [place], [place] | | | | | | [address] | | | | | | | [...]
--- OUTSIDE RECORDS SUMMARY | ~2019-11-18 | XMS | Clinical Summary ---
Demographics + + + | Address | [address] | | | [place] [address] | + + + | Home Phone [...] Author + + + | Author | [facility] | + + + | Organization | [facility] | + + + | Address | Unknown | + + + | Phone | Unavailable | + + + Support + + + + + | Name | Relationship | Address | Phone | + + + + + | Darci Andujar | [address] | [place] | | | | | [address] | | + + + + + Care Team Providers + +------+ + | Care U.S. Commissioner Name | Role | Phone | + +------+ + | Rahul Silva MD | PCP | | + +------+ + Source Comments DAKOTA is fully live on both [facility] Ambulatory and [facility] InPatient.On License Of [facility] Allergies No Known [...]
--- OUTSIDE RECORDS SUMMARY | ~2019-11-18 | XMS | Encounter Summary ---
Demographics + + + | Address | [address] | | | [place] [address] | + + + | Home Phone [...] + +------+ + | Care Water Pump Operator Name | Role | Phone [...] + + | 09/01/ | Telephone | [facility] | Farrukh Acuna MD | Other | | 2019 | | NEPRHOLOGY [place] | [address] [place] | | | | | [address] | 160 [place], [place] | | | | | [address] [place], [place] | [address] | | | | | [address] | | | | | | [phone] | | | +--------+ + + + [...] | | | | | | 160 [place], [place] | | | | | | [address] | | | | | | | | +--------+---------+ + + + documented as of this encounter Visit Diagnoses Not on filedocumented in this encounter"
--- OUTSIDE RECORDS SUMMARY | ~2019-11-18 | XMS | Encounter Summary ---
Demographics + + + | Address | [address] | | | [place] [address] | + + + | Home Phone [...] Team Providers + +------+ + | Care Guest Relations Manager Name | Role | Phone | + +------+ + | Rahul Silva MD | PCP | | + +------+ + Encounter Details +--------+ + + + + | Date | Type | Department | Care Team | Description | +--------+ + + + + | 09/01/ | Orders Only | [facility] | Farrukh Acuna MD | | | 2013 | | NEPHROLOGY [place] | [address] [place] | | | | | [address] [place] | [address] [place], [place] | | | | | [address] [place], [place] | [address] | | | | | [address] | | | | | | [phone] | | | +--------+ + + + [...] | | | | | | 160 [place] | | | | | | [address] | | | | | | | [...] | | | LAB | | | [place] | | | | | + + [...]
--- OUTSIDE RECORDS SUMMARY | ~2019-11-18 | XMS | Encounter Summary ---
Demographics + + + | Address | [address] | | | [place] [address] | + + + | Home Phone [...] [place] | | | | | [address] | | + + + + + Care Team Providers + +------+ + | Care Drill Bit Sharpener Name | Role | Phone | + +------+ + PCP | Unavailable | + +------+ + Encounter Details +--------+ + + + + | Date | Type | Department | Care Team | Description | +--------+ + + + + | 02/26/ | Results | | Other, Faculty | | | 1993 | Only | | [phone] | | +--------+ + + + + [...]
--- OUTSIDE RECORDS SUMMARY | ~2019-11-18 | XMS | Encounter Summary ---
Demographics + + + | Address | [address] | | | [place] [address] | + + + | Home Phone [...] Providers + +------+ + | Care Air Breaker Operator Name | Role | Phone | + +------+ + | Rahul Silva MD | PCP | | + +------+ + Encounter Details +--------+ + + + + | Date | Type | Department | Care Team | Description | +--------+ + + + + | 11/17/ | Telephone | [facility] | Farrukh Acuna MD | | | 2019 | | NEPHROLOGY [place] | [address] [place] | | | | | [address] [place] | 160 [place], [place] | | | | | [address] [place], [place] | [address] | | | | | [address] | | | | | | [phone] | | | +--------+ + + + [...] | | | | [address] [facility] | | | | | | [address] | | | | | | | | +--------+---------+ + + + documented as of this encounter Visit Diagnoses Not on filedocumented in this encounter"
--- OUTSIDE RECORDS SUMMARY | ~2019-11-18 | XMS | Encounter Summary ---
Demographics + + + | Address | [address] | | | [place] [address] | + + + | Home Phone [...] Team Providers + +------+ + | Care System Configuration Specialist Name | Role | Phone | [...] E | | | | | | ([facility]) | [place] | | | | | | Procedures | [address] | | | | | | VAS Arm | Phone: | | | | | | Bilateral | [phone] | | | | | | Mapping For | Fax: | | | | | | Dialysis | [phone] | | +--------+--------+ + + + + Encounter Details +--------+ + + + + | Date | Type | Department | Care Team | Description | +--------+ + + + + | 08/20/ | Hospital | [facility] | Trisha Conner, DNP | 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
--- OUTSIDE RECORDS SUMMARY | ~2019-11-18 | XMS | Encounter Summary ---
Demographics + + + | Address | [address] | | | [place] [address] | + + + | Home Phone [...] Team Providers + +------+ + | Care Alternative Financing Specialist Name | Role | Phone | [...] | | | [address] [place], [place] | [address] | | | | | [address] | | | | | | [phone] | | | +--------+ + + + [...] [place] | | | | | | [address] | | | | | | | [...]
--- OUTSIDE RECORDS SUMMARY | ~2019-11-18 | XMS | Encounter Summary ---
Demographics + + + | Address | [address] | | | [place] [address] | + + + | Home Phone [...] Providers + +------+ + | Care Non Destructive Testing Technician Name | Role | Phone | [...] | | | [address] [place], [place] | [address] | | | | | [address] | | | | | | [phone] | | | +--------+ + + + [...] | | | | | | 160 [place] | | | | | | [address] | | | | | | | | +--------+---------+ + + + documented as of this encounter Visit Diagnoses Not on filedocumented in this encounter"
--- OUTSIDE RECORDS SUMMARY | ~2019-11-18 | XMS | Encounter Summary ---
Demographics + + + | Address | [address] | | | [place] [address] | + + + | Home Phone [...] [place] | | | | | | [address] | | | | | | [phone] | | | +--------+ + + + [...] [place] | | | | | | [address] | | | | | | | | +--------+---------+ + + + documented as of this encounter Visit Diagnoses Not on filedocumented in this encounter"
--- OUTSIDE RECORDS SUMMARY | ~2019-11-18 | XMS | Encounter Summary ---
Demographics + + + | Address | [address] | | | [place] [address] | + + + | Home Phone [...] Providers + +------+ + | Care Retail Office Associate Name | Role | Phone | + +------+ + | Rahul Silva MD | PCP | | + +------+ + Encounter Details +--------+ + + + + | Date | Type | Department | Care Team | Description | +--------+ + + + + | 06/23/ | Orders Only | [facility] | Farrukh Acuna MD | | | 2018 | | NEPHROLOGY [place] | [address] [place] | | | | | [address] [place] | [address] [place], [place] | | | | | [address] [place], [place] | [address] | | | | | [address] | | | | | | [phone] | | | +--------+ + + + [...] [place] | | | | | | [address] | | | | | | | [...]
--- OUTSIDE RECORDS SUMMARY | ~2019-11-18 | XMS | Encounter Summary ---
Demographics + + + | Address | [address] | | | [place] [address] | + + + | Home Phone [...] Providers + +------+ + | Care Safety Clothing And Equipment Developer Name | Role | Phone | [...] | | 2016 | | [address] | Transaction, | | | | | [place], [place] | Provider Unknown | | | | | [address] | | | | | | [phone] | | | +--------+ + + + [...] [place] | | | | | | [address] | | | | | | | [...]
--- OUTSIDE RECORDS SUMMARY | ~2019-11-18 | XMS | Encounter Summary ---
Demographics + + + | Address | [address] | | | [place] [address] | + + + | Home Phone [...] Team Providers + +------+ + | Care Docent Coordinator Name | Role | Phone | + +------+ + | Rahul Silva MD | PCP | | + +------+ + Encounter Details +--------+ + + + + | Date | Type | Department | Care Team | Description | +--------+ + + + + | 10/01/ | Telephone | [facility] | Farrukh Acuna MD | | | 2018 | | NEPHFLORES [place] | [address] [facility] [place] | | | | | [address] | [address] [place], [place] | | | | | [place] [address] [place] | [address] | | | | | [address] | | | | | | [phone] | | | +--------+ + + + [...] | | | | [address] [facility] | | | | | | [address] | | | | | | | | +--------+---------+ + + + documented as of this encounter Visit Diagnoses Not on filedocumented in this encounter"
--- OUTSIDE RECORDS SUMMARY | ~2019-11-18 | XMS | Encounter Summary ---
Demographics + + + | Address | [address] | | | [place] [address] | + + + | Home Phone [...] Team Providers + +------+ + | Care Goal Umpire Name | Role | Phone | + +------+ + PCP | Unavailable | + +------+ + Encounter Details +--------+ + + + + | Date | Type | Department | Care Team | Description | +--------+ + + + + | 12/31/ | [facility] | [facility] | | | | 2000 | Encounter | MED CTR XRAY [address] | | | | | | [address] | | | | | | [place] [address] | | | | | | [phone] | | | +--------+ + + + [...] [place] | | | | | | [address] | | | | | | | | +--------+---------+ + + + documented as of this encounter Visit Diagnoses Not on filedocumented in this encounter"
--- OUTSIDE RECORDS SUMMARY | ~2019-11-18 | XMS | Encounter Summary ---
Demographics + + + | Address | [address] | | | [place] [address] | + + + | Home Phone [...] Providers + +------+ + | Care Senior Engineer Name | Role | Phone | + +------+ + PCP | Unavailable | + +------+ + Encounter Details +--------+ + + + + | Date | Type | Department | Care Team | Description | +--------+ + + + + | 05/22/ | [facility] | [facility] | Nelson Lutz MD | | | 1998 | Encounter | MED CTR GENERIC OP | [address], [place] | | | | | CONV DEPT [address] | [address] [place] | | | | | [place], | [address] | | | | | [place] [address] | | | | | | [phone] | | | +--------+ + + + [...] | | | | | | [address] [place] | | | | | | [address] | | | | | | | | +--------+---------+ + + + documented as of this encounter Visit Diagnoses Not on filedocumented in this encounter"
--- OUTSIDE RECORDS SUMMARY | ~2019-11-18 | XMS | Encounter Summary ---
Demographics + + + | Address | [address] | | | [place] [address] | + + + | Home Phone [...] [place] | | | | | [address] | | + + + + + Care Team Providers + +------+ + | Care Commercial Kitchen Service Technician Name | Role | Phone | + +------+ + PCP | Unavailable | + +------+ + Encounter Details +--------+ + + + + | Date | Type | Department | Care Team | Description | +--------+ + + + + | 03/30/ | Results | | Other, Faculty | | | 1992 | Only | | [phone] | | +--------+ + + + + [...] + +---------+ + + | [facility] DEPARTMENT OF | | | | | [...] + +---------+ + + | [facility] DEPARTMENT OF | | | | | [...] | | | | | | | [id number] AND | | | | | | [...] + +---------+ + + | [facility] DEPARTMENT OF | | | | | [...] + +---------+ + + | [facility] DEPARTMENT OF | | | | | [...] | | | | | | | [id number] | | | | | | CHEST: [...] | | | | | | | [id number] | | | | | | CHEST: [...] | | | | | | | [id number], | | | | | | PORTABLE, [...] + +---------+ + + | [facility] DEPARTMENT OF | | | | | [...] | | | | | | | [id number], | | | | | | PORTABLE, [...] and | | | | | | Penfield Ganzcatheter are | | | | | [...] + +---------+ + + | [facility] DEPARTMENT OF | | | | | [...] + +---------+ + + | [facility] DEPARTMENT OF | | | | | [...] | | | | | | a Penfield-Lupe catheter | | | | | | [...] | | | | placement of a Penfield-Lupe | | | | | | catheter. CHEST, | | | | | | SINGLE AP PORTABLE: | | | | | | 03-31-93 AT 1000 HOURS | | | | | | FINDINGS: Since the | | | | | | prior study, the | | | | | | Penfield-Lupe catheter has | | | | | [...] IMPRESSION: | | | | | | Penfield-Lupe catheter | | | | | | [...] The | | | | | | Penfield-Lupe catheter | | | | | | [...] and | | | | | | Penfield-Lupe catheter | | | | | | [...] endotracheal | | | | | | tube,Penfield-Lupe catheter | | | | | | [...] | | | | | | a Penfield-Lupe catheter | | | | | | [...] | | | | placement of a Penfield-Lupe | | | | | | catheter. CHEST, | | | | | | SINGLE AP PORTABLE: | | | | | | 03-31-93 AT 1000 HOURS | | | | | | FINDINGS: Since the | | | | | | prior study, the | | | | | | Penfield-Lupe catheter has | | | | | [...] IMPRESSION: | | | | | | Penfield-Lupe catheter | | | | | | [...] The | | | | | | Penfield-Lupe catheter | | | | | | [...] and | | | | | | Penfield-Lupe catheter | | | | | | [...] endotracheal | | | | | | tube,Penfield-Lupe catheter | | | | | | [...] + +---------+ + + | [facility] DEPARTMENT OF | | | | | [...] | | | | | | a Penfield-Lupe catheter | | | | | | [...] | | | | placement of a Penfield-Lupe | | | | | | catheter. CHEST, | | | | | | SINGLE AP PORTABLE: | | | | | | 03-31-93 AT 1000 HOURS | | | | | | FINDINGS: Since the | | | | | | prior study, the | | | | | | Penfield-Lupe catheter has | | | | | [...] IMPRESSION: | | | | | | Penfield-Lupe catheter | | | | | | [...] The | | | | | | Penfield-Lupe catheter | | | | | | [...] and | | | | | | Penfield-Lupe catheter | | | | | | [...] endotracheal | | | | | | tube,Penfield-Lupe catheter | | | | | | [...] + +---------+ + + | [facility] DEPARTMENT OF | | | | | [...] | | | | | | a Penfield-Lupe catheter | | | | | | [...] | | | | placement of a Penfield-Lupe | | | | | | catheter. CHEST, | | | | | | SINGLE AP PORTABLE: | | | | | | 03-31-93 AT 1000 HOURS | | | | | | FINDINGS: Since the | | | | | | prior study, the | | | | | | Penfield-Lupe catheter has | | | | | [...] IMPRESSION: | | | | | | Penfield-Lupe catheter | | | | | | [...] The | | | | | | Penfield-Lupe catheter | | | | | | [...] and | | | | | | Penfield-Lupe catheter | | | | | | [...] endotracheal | | | | | | tube,Penfield-Lupe catheter | | | | | | [...] + +---------+ + + | [facility] DEPARTMENT OF | | | | | [...] | | | | | | a Penfield-Lupe catheter | | | | | | [...] | | | | placement of a Penfield-Lupe | | | | | | catheter. CHEST, | | | | | | SINGLE AP PORTABLE: | | | | | | 03-31-93 AT 1000 HOURS | | | | | | FINDINGS: Since the | | | | | | prior study, the | | | | | | Penfield-Lupe catheter has | | | | | [...] IMPRESSION: | | | | | | Penfield-Lupe catheter | | | | | | [...] The | | | | | | Penfield-Lupe catheter | | | | | | [...] and | | | | | | Penfield-Lupe catheter | | | | | | [...] endotracheal | | | | | | tube,Penfield-Lupe catheter | | | | | | [...] | | | | | [facility] | | | | | [...] | | | | | | a Penfield-Lupe catheter | | | | | | [...] | | | | placement of a Penfield-Lupe | | | | | | catheter. CHEST, | | | | | | SINGLE AP PORTABLE: | | | | | | 03-31-93 AT 1000 HOURS | | | | | | FINDINGS: Since the | | | | | | prior study, the | | | | | | Penfield-Lupe catheter has | | | | | [...] IMPRESSION: | | | | | | Penfield-Lupe catheter | | | | | | [...] The | | | | | | Penfield-Lupe catheter | | | | | | [...] and | | | | | | Penfield-Lupe catheter | | | | | | [...] endotracheal | | | | | | tube,Penfield-Lupe catheter | | | | | | [...] | | | | | | a Penfield-Lupe catheter | | | | | | [...] | | | | placement of a Penfield-Lupe | | | | | | catheter. CHEST, | | | | | | SINGLE AP PORTABLE: | | | | | | 03-31-93 AT 1000 HOURS | | | | | | FINDINGS: Since the | | | | | | prior study, the | | | | | | Penfield-Lupe catheter has | | | | | [...] IMPRESSION: | | | | | | Penfield-Lupe catheter | | | | | | [...] The | | | | | | Penfield-Lupe catheter | | | | | | [...] and | | | | | | Penfield-Lupe catheter | | | | | | [...] endotracheal | | | | | | tube,Penfield-Lupe catheter | | | | | | [...]
--- OUTSIDE RECORDS SUMMARY | ~2019-11-18 | XMS | Encounter Summary ---
Demographics + + + | Address | [address] | | | [place] [address] | + + + | Home Phone [...] Team Providers + +------+ + | Care Toddler Teacher Name | Role | Phone | [...] + | 09/10/ | Hospital | [facility] | Brian Orosco MD | CKD (chronic kidney | | 2019 | Encounter | [facility] | [address] | disease) stage 5, | | | | OPERATING RO[address] | [place], [place] | GFR less than 15 | | | | [address] | [address] | ml/min ([facility]) | | | | [place], [place] | [phone] | | | | | [address] | | | | | | [phone] | | | +--------+ + + + [...] dialysis shunt, please contact your ysician at [phone]. Discharge instructions for Diagnostic Imaging sedation patients [...] . For any severe symptoms, please call [phone] or report to your nearest Emergency Department. Acetaminophen; Hydrocodone tablets or capsules Brand Names: Anexsia, Lorcet, Lorcet HD, Lorcet Plus, Lortab, Altus, Verdrocet, Vicodin, Vi codin ES, Vicodin HP, [...] information carefully each time. Talk to your power driven brush maker regarding the use of this medicine in children. Special care may be needed. What side effects may I notice from receiving this medicine? Side effects that you should report to your doctor or health hearing healthcare practitioner as soon as p ossible: allergic [...] attention (report to your doctor or health hearing healthcare practitioner if they continue or are bothersome): [...] official disposal site. Contact the [facility] at [phone] or your [facility] to find a site. If [...] this medicine? Tell your doctor or health hearing healthcare practitioner if your pain does not go [...] cuts, scrapes, or blows. Date Last Reviewed: 12/01/201619999427-[address] [place], [place] [address]. All righ ts reserved. This information is [...] and bl ood clots prevention. Prescription for Altus given and side effects were explained. Patient states that he also takes oxycodone at home; patient and his family were educated about taki ng oxycodone or Altus only and not both. OTC Tylenol intake [...] | | | | | | [address], [place] | | | | | | [address] | | | | | | | [...] | | | POC | performed at [facility];[address] | | LABORATORY | | | | [address];[place] | | | | | | [address] | | | | + + + + + + + + | Specimen | + + | | + + + + + + + | Performing | Address | City/State/Zipcode | Phone Number | | Organization | | | | + + + + + | [facility] | [address] | [place] [address] | [phone] | + + + + + POC [...] | | | POC | performed at [facility];[address] | | LABORATORY | | | | [address];[place], [place] | | | | | | [address] | | | | + + + + + + + + | Specimen | + + | | + + + + + + + | Performing | Address | City/State/Zipcode | Phone Number | | Organization | | | | + + + + + | [facility] | [address] | [place] [address] | [phone] | + + + + + documented [...] One week or | | | longer, hxgunu-zge-mzovq use of | | | at least [...]
--- OUTSIDE RECORDS SUMMARY | ~2019-11-18 | XMS | Encounter Summary ---
Demographics + + + | Address | [address] | | | [place] [address] | + + + | Home Phone [...] Providers + +------+ + | Care Brim Stiffener Name | Role | Phone | + +------+ + | Rahul Silva MD | PCP | | + +------+ + Encounter Details +--------+ + + + + | Date | Type | Department | Care Team | Description | +--------+ + + + + | 03/24/ | Orders Only | [facility] | Farrukh Acuna MD | | | 2017 | | NEPHROLOGY [place] | [address] [place] | | | | | [address] [place] | [address] [place], [place] | | | | | [address] [place], [place] | [address] | | | | | [address] | | | | | | [phone] | | | +--------+ + + + [...] [place] | | | | | | [address] | | | | | | | [...]
--- OUTSIDE RECORDS SUMMARY | ~2019-11-18 | XMS | Encounter Summary ---
Demographics + + + | Address | [address] | | | [place] [address] | + + + | Home Phone [...] [place] | | | | | [address] | | + + + + + Care Team Providers + +------+ + | Care Data Operations Leader Name | Role | Phone | [...] | | | | | | [place], | | | | | | [place] [address] | | | | | | [phone] | | | +--------+ + + + [...] as of this encounter Discharge Summaries Interface, Javascript Front End Developer In - 12/22/2006 3:12 AM PST [address] [address] [facility] MEDICAL SUMMARY OF HOSPITALIZATION Med Rec No.: [id number] Admission Date: 04/06/98 Name: Kavon Andujar Discharge Date: 04/08/98 STAFF PHYSICIAN: Galo Arora M.D. Party Director, Division of Plastic & Reconstructive Surgery PRINCIPAL [...] M.D. Resident, Plastic Surgery Galo Arora M.D. Party Director, Division of Plastic & Reconstructive Surgery QIANA/charo P cc: GRIFFIN ASHER MD [address] [facility] [place] [address] documented in this encounter Plan of Treatment Not on filedocumented as of this encounter Visit Diagnoses Not on filedocumented in this encounter"
--- OUTSIDE RECORDS SUMMARY | ~2019-11-18 | XMS | Encounter Summary ---
Demographics + + + | Address | [address] | | | [place] [address] | + + + | Home Phone [...] [place] | | | | | [address] | | + + + + + Care Team Providers + +------+ + | Care Rn Clinical Research Name | Role | Phone | [...] | | | [facility], [address] | | | | | | [place], [place] | | | | | | [address] | | | | | | [phone] | | | +--------+ + + + [...] as of this encounter Progress Notes Interface, Wood Machinist Apprentice In - 01/22/2007 3:04 AM PST CLINIC DATE: 06/07/97 NEUROLOGY CLINIC HISTORY OF PRESENT ILLNESS: Mr. Andujar is a 56 year-old male who is being evaluated in the Clinic for problems with balance and tremulousness of both upper extremities. He has been referred to this Clinic by Dr. Valles from [place], [place], and has also previously undergone extensive evaluations in the Neurosurgical Clinic and at Vascular Surgery at [facility]. His most recent hospitalization to [facility] was December 28, 1996, when [...] evaluation in the Pain Management Clinic at [facility] and previous trials of Neurontin and mexiletine hydrochloride apparently appears to have been unsuccessful. Shortly following his December hospitalization at [facility], Mr. Andujar apparently became comatose in January from an accidental overdose of Darvon for which he was admitted to [facility] in [place], [place]. The details pertaining to this hospitalization are currently not available but as per Mr. Andujar, he was in a coma for a six day period and upon recovery noted tremulousness of both upper extremities, worse on his left than on his right. 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 Since his discharge from [facility], however, he has been experiencing increasing problems with balance and apparently has fallen on several occasions. The head CT-scan that was done at [facility], dated February 07, 1997, reveals a low attenuation area in the left anterior basal ganglia felt to represent a small lacunar infarct, with no other significant abnormality. Mr. Andujar states that during the course of his hospitalization at [facility] he apparently fell on three occasions sustaining occipital head trauma but did not undergo subsequent brain imaging studies. His stay at [facility] lasted two weeks. By his report, he [...] Mr. 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 He currently smokes one-half mzjp-kti-bxn since age 23. Denies current alcohol use [...] turn led to his hospitalization at [facility] in January 1997 for coma at which [...] procedures for pain relief. Michelle Landon M.D. Computer Consultant, Neurology GN:fermin C: 06/28/97 cc: RUBIA VALLES MD [address] [facility] [address] Alina Moise M.D. Professor and Armature Coil Winder, Division of Neurosurgery Robert Carlson M.D. Professor, Vascular Surgery documented in this encounter Plan of Treatment Not on filedocumented as of this encounter Visit Diagnoses Not on filedocumented in this encounter"
--- OUTSIDE RECORDS SUMMARY | ~2019-11-18 | XMS | Encounter Summary ---
Demographics + + + | Address | [address] | | | [place] [address] | + + + | Home Phone [...] Team Providers + +------+ + | Care Structural Draftsman Name | Role | Phone | + [...] [address] | | | | | [place], [place] | [place], [place] | | | | | [address] | [address] | | | | | [phone] | [phone] | | | | | | | [...] HOSPITAL[facility] | | | | | | [address] | | | | | | | [...]
--- OUTSIDE RECORDS SUMMARY | ~2019-11-18 | XMS | Encounter Summary ---
Demographics + + + | Address | [address] | | | [place] [address] | + + + | Home Phone [...] Team Providers + +------+ + | Care Hydrotreater Operator Name | Role | Phone | + +------+ + | Rahul Silva MD | PCP | | + +------+ + Encounter Details +--------+ + + + + | Date | Type | Department | Care Team | Description | +--------+ + + + + | 09/17/ | Orders Only | [facility] | Collin Mirza, | | | 2015 | | NEPHROLOGY [place] | REFRACTORY TECHNICIAN [address] | | | | | [address] [place] | [address] | | | | | [address] [place], [place] | [facility] | | | | | [address] | [address] | | | | | [phone] | [phone] | | | | | | | [...] | | | | | [address] [facility] | | | | | | [address] | | | | | | | [...]
--- OUTSIDE RECORDS SUMMARY | ~2019-11-18 | XMS | Encounter Summary ---
Demographics + + + | Address | [address] | | | [place] [address] | + + + | Home Phone [...] + +------+ + | Care Sewing Machine Repairer Helper Name | Role | Phone | [...] [address] | | | | | [place], [place] | [place], [place] | | | | | [address] | [address] | | | | | [phone] | [phone] | | | | | | | [...] [place] | | | | | | [address] | | | | | | | [...]
--- OUTSIDE RECORDS SUMMARY | ~2019-11-18 | XMS | Encounter Summary ---
Demographics + + + | Address | [address] | | | [place] [address] | + + + | Home Phone [...] Providers + +------+ + | Care Pneumatic Hoist Operator Name | Role | Phone | [...] | Telephone | [facility] | Farurkh Acuna MD | Other | | 2019 | | NEPHROLOGY [place] | [address] [place] | | | | | [address] [place] | [address] [place], [place] | | | | | [address] [place], [place] | [address] | | | | | [address] | | | | | | [phone] | | | +--------+ + + + [...] [place] | | | | | | [address] | | | | | | (Fax) | | +--------+---------+ + + + documented as of this encounter Visit Diagnoses Not on filedocumented in this encounter"
--- OUTSIDE RECORDS SUMMARY | ~2019-11-18 | XMS | Encounter Summary ---
Demographics + + + | Address | [address] | | | [place] [address] | + + + | Home Phone [...] [place] | | | | | [address] | | + + + + + Care Team Providers + +------+ + | Care Low Altitude Air Defense Gunner Name | Role | Phone | + [...] | | | | | | [facility] | | | | | | [place] [address] | | | | | | [phone] | | | +--------+ + + + [...] as of this encounter Progress Notes Interface, Fabrication Technician In - 02/17/2007 3:02 AM PDT [address] [address] or August 05, 1996 RUBIA VALLES MD [address] [facility] [address] RE:PORFIRIO ZAVALA MR#:[id number] Valles: Mr. Porfirio Zavala returned to the [facility] Neurosurgery Clinic today for a followup visit. 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 Mr. Zavala has failed numerous femoral nerve blocks, sciatic nerve blocks, and spinal cord blocks, and was at one time enrolled in the [facility] Pain Clinic. Mr. Zavala's pain is [...] dictating for: Alina Moise M.D. Professor and Kiln Door Builder, Division of Neurosurgery MARYANA/sajna cc: Seven Khan, Ph.D. Clinical Psychologist-Neuropsychologist documented in this encounter Plan of Treatment Not on filedocumented as of this encounter Visit Diagnoses Not on filedocumented in this encounter"
--- OUTSIDE RECORDS SUMMARY | ~2019-11-18 | XMS | Encounter Summary ---
Demographics + + + | Address | [address] | | | [place] [address] | + + + | Home Phone [...] Providers + +------+ + | Care Lens Maker Name | Role | Phone | [...] [address] | | | | | [place], [place] | [place], [place] | | | | | [address] | [address] | | | | | [phone] | [phone] | | | | | | | [...] [place] | | | | | | [address] | | | | | | | [...]
--- OUTSIDE RECORDS SUMMARY | ~2019-11-18 | XMS | Encounter Summary ---
Demographics + + + | Address | [address] | | | [place] [address] | + + + | Home Phone [...] Team Providers + +------+ + | Care Boil Off Machine Operator Cloth Name | Role | Phone | [...] [address] | | | | | [place], [place] | [place], [place] | | | | | [address] | [address] | | | | | [phone] | [phone] | | | | | | | [...] | | | | | [address] [facility] | | | | | | [address] | | | | | | | [...]
--- OUTSIDE RECORDS SUMMARY | ~2019-11-18 | XMS | Encounter Summary ---
Demographics + + + | Address | [address] | | | [place] [address] | + + + | Home Phone [...] Team Providers + +------+ + | Care Geologic Technician Name | Role | Phone | [...] | | | stage 5, GFR | [address] | | | | | | less than | Phone: | | | | | | 15 ml/min | [phone] | | | | | | ([facility]) | Fax: | | | | | | Procedures | [phone] | | | | | | VAS [...] + + | 10/20/ | Hospital | [facility] | Trisha Conner DNP | CKD (chronic kidney | | 2018 | Encounter | VASCULAR SURGERY | [address] | disease) stage 5, | | | | ULTRASOUND [address] | [place] [address] | GFR less than 15 | | | | [place] | [address] | ml/min (HCC) | | | | [place], [place] | | | | | | [address] | | | | | | [phone] | | | +--------+ + + + [...] | | ([facility]) | | [...] | | | | [address] [facility] | | | | | | [address] | | | | | | | [...]
--- OUTSIDE RECORDS SUMMARY | ~2019-11-18 | XMS | Clinical Summary ---
Demographics + + + | Address | [address] | | | [place] [address] | + + + | Home Phone | | + + + | Preferred Language | Unknown | + + + | Marital Status | | + + + | Orthodox Affiliation | 1077 | + + + | Race | Unknown | + + + | Ethnic Group | Unknown | + + + Author + + + | Author | [employer] (Historical as of | | | 07-17-19) | + + + | Organization | [facility] (Historical as of | | | 07-17-19) [...] Providers + +------+ + | Care Straight Edger Name | Role | Phone | + [...] | | | | | 4 (severe) ([facility]), | | | | | | | [...] Last Assessment & Plan: Controlled on current [age]fsieqar60 yr | | old male with COPD, [...] +------+-------+ + | MEDICARE | MEDICA | [id number] | | | [address] | | | RE | | | | [place], [place] [address] | | | IP-OP | | | | | + +--------+ +------+-------+ + | MEDICAID | EASTER | [id number] | | | [address] | | | N | | | | [place], [place] | | | [place] | | | | [address] | | | MARBLE RUBBER | | | | | + +--------+ [...] | | al/Fam | | 1940 | [phone] | [place], [place] | | | chula | | | [address] | [address] | + +--------+ +--------+ + +
--- OUTSIDE RECORDS SUMMARY | ~2019-11-18 | XMS | Encounter Summary ---
Demographics + + + | Address | [address] | | | [place] [address] | + + + | Home Phone [...] Team Providers + +------+ + | Care French Tutor Name | Role | Phone | [...] [address] | | | | | [place], [place] | [place], [place] | | | | | [address] | [address] | | | | | [phone] | | | | | | | [...] | | | [address] [facility] | | | | | | [address] | | | | | | | [...]
--- OUTSIDE RECORDS SUMMARY | ~2019-11-18 | XMS | Encounter Summary ---
Demographics + + + | Address | [address] | | | [place] [address] | + + + | Home Phone [...] [place] | | | | | [address] | | + + + + + Care Team Providers + +------+ + | Care Supervisor Curing Room Name | Role | Phone | [...] [address] | | | | | | [place] | | | | | | [address] | | | +--------+ + + + [...] of this encounter Discharge Summaries Interface, School Services Officer In - 04/01/2007 5:08 AM PDT [address] [address] [facility] MEDICAL SUMMARY OF HOSPITALIZATION Med Rec No.: [...] cc: RUBIA KNAPP MD [address] [facility] [address] documented in this encounter Plan of Treatment Not on filedocumented as of this encounter Visit Diagnoses Not on filedocumented in this encounter"
--- OUTSIDE RECORDS SUMMARY | ~2019-11-18 | XMS | Encounter Summary ---
Demographics + + + | Address | [address] | | | [place] [address] | + + + | Home Phone [...] Providers + +------+ + | Care Garage Laborer Name | Role | Phone | + +------+ + | Rahul Silva MD | PCP | | + +------+ + Encounter Details +--------+ + + + + | Date | Type | Department | Care Team | Description | +--------+ + + + + | 11/17/ | Telephone | [facility] | Farrukh Acuna MD | | | 2019 | | NEPHROLOGY [place] | [address] [place] | | | | | [address] [place] | [address] [place], [place] | | | | | [address] [place], [place] | [address] | | | | | [address] | | | | | | [phone] | | | +--------+ + + + [...] | | | | | | [address] [facility] | | | | | | [address] | | | | | | | | +--------+---------+ + + + documented as of this encounter Visit Diagnoses Not on filedocumented in this encounter"
--- OUTSIDE RECORDS SUMMARY | ~2019-11-18 | XMS | Encounter Summary ---
Demographics + + + | Address | [address] | | | [place] [address] | + + + | Home Phone [...] Providers + +------+ + | Care Contour Grinder Name | Role | Phone | + +------+ + | Rahul Silva MD | PCP | | + +------+ + Encounter Details +--------+ + + + + | Date | Type | Department | Care Team | Description | +--------+ + + + + | 01/13/ | Orders Only | [facility] | Conversion | | | 2016 | | NEPHROLOGY [place] | Transaction, | | | | | [address] | Provider Unknown | | | | | [address] | | | | | | [address] | (Fax) | | | | | [phone] | | | +--------+ + + + [...] | | [facility] | | | | | | [address] | | | | | | | [...] - 1.030 | EXTERNAL | | | [place] | | | LAB | | + [...]
--- OUTSIDE RECORDS SUMMARY | ~2019-11-18 | XMS | Encounter Summary ---
Demographics + + + | Address | [address] | | | [place] [address] | + + + | Home Phone [...] Providers + +------+ + | Care Cash Checker Name | Role | Phone | [...] | | | [address] [place], [place] | [address] | | | | | [address] | | | | | | [phone] | | | +--------+ + + + [...] [place] | | | | | | [address] | | | | | | | [...]
--- OUTSIDE RECORDS SUMMARY | ~2019-11-18 | XMS | Encounter Summary ---
Demographics + + + | Address | [address] | | | [place] [address] | + + + | Home Phone [...] [place] | | | | | [address] | | + + + + + Care Team Providers + +------+ + | Care Central Service Technician Name | Role | Phone [...] | | | | | | [facility] | | | | | | [place] [address] | | | | | | [phone] | | | +--------+ + + + [...] as of this encounter Progress Notes Interface, Digital Photographic Printer In - 01/03/2007 5:08 AM PST [address] [address] Department of Orthopaedics, [facility] OP19 December 21, 1997 Jerry Smiley M.D. [address] [place] [address] RE:Kavon Andujar MR#:[id number] Smiley: Thank [...] Carlson might like. Sincerely, Eric Mcclure M.D. Folder Machine Operator, Department of Orthopaedics and Rehabilitation ERICK/sara A documented in this encounter Plan of Treatment Not on filedocumented as of this encounter Visit Diagnoses Not on filedocumented in this encounter"
--- OUTSIDE RECORDS SUMMARY | ~2019-11-18 | XMS | Encounter Summary ---
Demographics + + + | Address | [address] | | | [place] [address] | + + + | Home Phone [...] [place] | | | | | [address] | | + + + + + Care Team Providers + +------+ + | Care Bookkeeper Name | Role | Phone | [...] [id number] | | | | | | [place], [place] | | | | | | [address] | | | | | | [phone] | | | +--------+ + + + [...] [facility] | [address] | [place] [address] | | | PATHOLOGY | [address] [...] [facility] | [address] | [place] [address] | | | PATHOLOGY | [address] [...] | [facility] | [address] | [place] [address] | | | PATHOLOGY | [address] [...] [facility] | [address] | [place] [address] | | | PATHOLOGY | [address] | | | + + + + + documented in this encounter Visit Diagnoses Not on filedocumented in this encounter
--- OUTSIDE RECORDS SUMMARY | ~2019-11-18 | XMS | Encounter Summary ---
Demographics + + + | Address | [address] | | | [place] [address] | + + + | Home Phone [...] Providers + +------+ + | Care Corporate Human Resources Manager Name | Role | Phone | [...] | sleep apnea) | | | | [place] Tonya Castaneda, | [place]AS | (Primary Dx); COPD | | | | [place] [address] | [address] | (chronic obstructive | | | | [phone] | | pulmonary disease) | | | [...] | | | | | [address] [place], [place] | | | | | | [address] | | | | | | | [...]
--- OUTSIDE RECORDS SUMMARY | ~2019-11-18 | XMS | Encounter Summary ---
Demographics + + + | Address | [address] | | | [place] [address] | + + + | Home Phone [...] Providers + +------+ + | Care Executive Housekeeper Name | Role | Phone | + [...] | | | [address] [place], [place] | [address] | | | | | [address] | | | | | | [phone] | | | +--------+ + + + [...] [place] | | | | | | [address] | | | | | | | [...] | | | LAB | | | [facility] | | | | | + + [...]
--- OUTSIDE RECORDS SUMMARY | ~2019-11-18 | XMS | Encounter Summary ---
Demographics + + + | Address | [address] | | | [place] [address] | + + + | Home Phone [...] Team Providers + +------+ + | Care Reimbursement Coordinator Name | Role | Phone | [...] + + | 07/21/ | Documentati | [facility] | Simon, | Results (07/19/19) | | 2019 | on | NEPHROLOGY [place] | [facility] | | | | | [address] | Wet Trimmer | | | | | [address] [place], [place] | | | | | | [address] | | | | | | [phone] | | | +--------+ + + + [...] | | | | | | [address] [place], [place] | | | | | | [address] | | | | | | | [...]
--- OUTSIDE RECORDS SUMMARY | ~2019-11-18 | XMS | Encounter Summary ---
Demographics + + + | Address | [address] | | | [place] [address] | + + + | Home Phone [...] Team Providers + +------+ + | Care Wool Hanker Name | Role | Phone | + [...] [address] | | | | | [place], [place] | [place], [place] | | | | | [address] | [address] | | | | | [phone] | [phone] | | | | | | | [...] HOSPITAL[facility] | | | | | | [address] | | | | | | | [...]
--- OUTSIDE RECORDS SUMMARY | ~2019-11-18 | XMS | Encounter Summary ---
Demographics + + + | Address | [address] | | | [place] [address] | + + + | Home Phone [...] [place] | | | | | [address] | | + + + + + Care Team Providers + +------+ + | Care Fence Post Driver Name | Role | Phone | + +------+ + PCP | Unavailable | + +------+ + Encounter Details +--------+ + + + + | Date | Type | Department | Care Team | Description | +--------+ + + + + | 02/26/ | Results | | Other, Faculty | | | 1993 | Only | | [phone] | | +--------+ + + + + [...] | + +---------+ + + | [facility] DEPARTMENT OF | | | | | RADIOLOGY | | | | + +---------+ + + documented in this encounter Visit Diagnoses Not on filedocumented in this encounter"
--- OUTSIDE RECORDS SUMMARY | ~2019-11-18 | XMS | Encounter Summary ---
Demographics + + + | Address | [address] | | | [place] [address] | + + + | Home Phone [...] Providers + +------+ + | Care Salvage Cutter Name | Role | Phone | [...] [address] | | | | | [place], [place] | [place], [place] | | | | | [address] | [address] | | | | | [phone] | [phone] | | | | | | | [...] | | [address] [facility] | | | | | | [address] | | | | | | | [...]
--- OUTSIDE RECORDS SUMMARY | ~2019-11-18 | XMS | Encounter Summary ---
Demographics + + + | Address | [address] | | | [place] [address] | + + + | Home Phone [...] Team Providers + +------+ + | Care Cq Developer Name | Role | Phone | + +------+ + | Rahul Silav MD | PCP | | + +------+ + Encounter Details +--------+ + + + + | Date | Type | Department | Care Team | Description | +--------+ + + + + | 10/03/ | Orders Only | [facility] | Collin Mirza, | | | 2015 | | NEPHROLOGY [place] | NURSE HEALTHCARE MANAGER [address] | | | | | [address] | [address] | | | | | [address] [place], [place] | [facility] | | | | | [address] | [address] | | | | | [phone] | [phone] | | | | | | | [...] | | | [address] [facility] | | | | | | [address] | | | | | | | [...]
--- OUTSIDE RECORDS SUMMARY | ~2019-11-18 | XMS | Encounter Summary ---
Demographics + + + | Address | [address] | | | [place] [address] | + + + | Home Phone [...] Providers + +------+ + | Care Plug Overwrap Machine Tender Name | Role | Phone [...] [address] | | | | | [place], [place] | [place], [place] | | | | | [address] | [address] | | | | | [phone] | [phone] | | | | | | | [...] HOSPITAL[facility]HA | | | | | | [address] | | | | | | | [...]
--- OUTSIDE RECORDS SUMMARY | ~2019-11-18 | XMS | Encounter Summary ---
Demographics + + + | Address | [address] | | | [place] [address] | + + + | Home Phone [...] Team Providers + +------+ + | Care Curriculum Counselor Name | Role | Phone | [...] Venkata Carroll | | | 2019 | [facility] | [address] | | | | | OPERATING ROOM [address] | | | | | [address] | [place] [address] | | | | | [place], [place] | [phone] | | | | | [address] | | | | | | [phone] | | | +--------+ + + + + Anesthesia Record + + + + + | Procedure Name | Responsible | Anesthesia Start | Anesthesia Stop Time | | | Anesthesiologist | Time | | + + + + + | INSERTION AV FISTULA | Venkata Carroll, | 09/10/19 1307 | 09/10/19 1401 | | (Right BBF) (Right | JACQUARD LOOM CARPET WEAVER | | | | Arm Upper) | [...] 09/10/19 1600 by | | amor | [id number] catheter system; | Trinidad Ramírez | Leana [...] | | | | | | [address] [place], [place] | | | | | | [address] | | | | | | | [...]
--- OUTSIDE RECORDS SUMMARY | ~2019-11-18 | XMS | Clinical Summary ---
Demographics + + + | Address | [address] | | | [place] [address] | + + + | Home Phone [...] Providers + +------+ + | Care Food Consultant Name | Role | Phone | [...] | | | | | ([facility]), Secondary | | | | [...] automatically from request for surgery | | [id number] | + + + + + | [...] & Plan: Controlled on current | | [id number] yr old male with COPD, current heavy [...] Abdi | | | | | | Registered Dental Hygienist | | +--------+ + + + + | 11/08/ | Documentati | Nephrology | Simon, | Results (10/10/19) | | 2019 | on | | Charlie Abdi | | | | | | Registered Dental Hygienist | | +--------+ + + + + | 10/20/ | Hospital | Radiology | Trisha Conner DNP | CKD (chronic kidney | | 2019 | Encounter | | | disease) stage 5, | | | | | | GFR less than 15 | | | | | | ml/min ([facility]) | +--------+ + + + + | 10/20/ | Office | Vascular Surgery | Trisha Conner DNP | CKD (chronic kidney | | 2019 | Visit | | | disease) stage 5, | | | | | | GFR less than 15 | | | | | | ml/min ([facility]) | | | | | | (Primary Dx); AVF | | | | | | (arteriovenous | | | | | | fistula) ([facility]) | +--------+ + + + + | 10/20/ | Telephone | Nephrology | Alfred | Mary (Tera F/U) | | 2019 | | | Charlie Abdi | | | | | | Registered Dental Hygienist | | +--------+ + + + + | 10/19/ | Documentati | Nephrology | Alfred | Results (09/22/19) | | 2019 | on | | Charlie Abdi | | | | | | Registered Dental Hygienist | | +--------+ + + + + [...] | ml/min ([facility]) | | | | | | (Primary Dx); Anemia | | | | | | of chronic kidney | | | | | | failure, stage 5 | | | | | | ([facility]); Essential | | | | [...] Abdi | | | | | | Registered Dental Hygienist | | +--------+ + + + + [...] | 08/24/19) | | | | | Registered Dental Hygienist | | +--------+ + + + + | 09/13/ | Telephone | Vascular Surgery | Terri Aguilar, | Follow-up | | 2018 | | | Materials Associate | | +--------+ + + + + [...] | | ml/min ([facility]) | +--------+ + [...] Abdi | | | | | | Registered Dental Hygienist | | +--------+ + + + + [...] | ml/min ([facility]) | | | | [...] | Encounter | | | renal disease) ([facility]) | +--------+ + + [...] [facility]ENT[facility] | | | | | | [address] | | | | | | | [...] + | Performing | Address | City/State/Unm Hospitalcode | Phone Number | | Organization [...] Testing | 65 - 99 mg/dL | [facility] | | | POC | performed at [facility] | | [address] | | | | [address];[place] | | | | | | [address] | | | | + + + + + + + + | Specimen | + + | | + + + + + + + | Performing | Address | City/State/Zipcode | Phone Number | | Organization | | | | + + + + + | [facility] | [address] | [place] [address] | [phone] | + + + + + ECG [...] +--------+ +---------+--------+ | MEDICARE | MEDICA | [id number] | 07/01/20 | [phone] | | Medica | | | RE | | 05-Pre | 5 | | re | | | PART A | | sent | | | | | | AND B | | | | | | + +--------+ +--------+ +---------+--------+ | [employer] | MODA | [id number] | 07/04/20 | [phone] | | Medica | | MEDICAID HMO | HEALTH | | 19-Pre | 1 | | id | | | MDCD | | sent | | | | | | [place]MO [place] | | | | | | + +--------+ +--------+ +---------+--------+ | MEDICAID [place] | MEDICA | [id number] | | [phone] | | Medica | [...] chula | | | 1 (Home) | [address] | + +--------+ +--------+ + + | Kavon Andujar | Person | Self | [birth year] | [birth year] | | Arturo | al/Fam | | 1940 | [phone] | [place] | | | [place] | | | 1 (Home) | [address] | + +--------+ +--------+ + + Advance Directives + + + + + | Type | Date Recorded | Patient | Explanation | | | | Creche Attendant | | + + + + + | Power of | | | | | Senior Sales Associate | | | | + + + [...]
--- OUTSIDE RECORDS SUMMARY | ~2019-11-18 | XMS | Encounter Summary ---
Demographics + + + | Address | [address] | | | [place] [address] | + + + | Home Phone [...] Providers + +------+ + | Care Associate Director Regulatory Affairs Name | Role | Phone | + [...] | sleep apnea) | | | | [place] Tonya Castaneda, | TRE C[place]AS | (Primary Dx); COPD | | | | [place] [address] | [address] | (chronic obstructive | | | | [phone] | | pulmonary disease) | | | [...] 2020 | Visit | | [address] | | | | | | [address] [place], [place] | | | | | | [address] | | | | | | | [...]
--- OUTSIDE RECORDS SUMMARY | 2019-11-18 21:08 | XMS ---
PreManage Notification: PORFIRIO ZAVALA Security Corporate Analyst Events No recent Security Events currently on file CRITERIA MET - [facility] - Has Care Guidelines - PDMP - [facility] - 2 Visits in 30 Days [facility]Rodney Van PHONE: [phone] Alina Clark Labor Relations Consultant/Auto Service Dispatcher 08/31/2018-Current PHONE: [phone] Alina Clark Primary Care 08/31/2018-Current PHONE: [phone] Domenic Gutiérrez Case or Barrel Raiser Helper Current PHONE: [phone] HARDIK Van Primary Care 08/31/2015-Rodney COYNE PHONE: Unknown Agapito has no Care Guidelines for this patient. Care History Medical/Surgical 11/10/2019 [facility] - PLEASE MAKE SURE- ALL RECORDS ARE SENT TO DR ACUNA-PATIENT CUSTOMER ASSOCIATE IN [place]. 05/28/2018 [facility] - Patient currently sees food beverage attendant Dr Acuna and patient has last seen [...] ED please contact Community Health WorkerLizzy at [phone]. These are guidelines and the provider should exercise clinical judgment when providing care. 07/25/2017 [facility] HISTORY: COPD, DMII, HTN, CVA X3, KIDNEY FAIL STAGE 3 WITH SHORT TERM DIALYSIS, CPAP USE SURGERY HISTORY: GILBERT ESPINAL, PANCRETIC TUMOR REMOVAL E.DLedy VISIT COUNT (12 MO.) 6 JONY Amado TOTAL 6 NOTE: Visits indicate total known visits. ED/UCC VISIT TRACKING (12 MO.) 11/18/2019 21:05 [facility] [place] TYPE: Emergency COMPLAINT: - CONFUSION 11/04/2019 13:11 [facility] [place] TYPE: Emergency COMPLAINT: - MEMORY PROBLEM DIAGNOSES: - Heart failure, unspecified - Allergy status to oth drug/meds/biol subst status - Anemia in chronic kidney disease - Other chcf (current) drug therapy - Personal history of nicotine dependence - 1 Hyp hrt \T\ chr kdny dis w hrt fail and stg 1-4/unsp chr kdny - 1 Chronic kidney disease, stage 4 (severe) - skilled nursing (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 of insulin - Acute kidney failure, unspecified - Dependence on other enabling machines and devices - Vascular dementia without behavioral disturbance - termite exterminator (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 of anticoagulants - termite exterminator (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 of aspirin - 1 Type 2 diabetes mellitus w diabetic chronic kidney disease - Chronic obstructive pulmonary disease, unspecified - Dependence on renal dialysis - Unspecified coma - Prsnl hx of TIA (TIA), and cereb infrc w/o resid deficits 10/10/2019 20:25 [facility] [place] TYPE: Emergency COMPLAINT: - CHEST PAIN DIAGNOSES: - Allergy status to oth drug/meds/biol subst status - 1 Type 2 diabetes mellitus w diabetic chronic kidney disease - Heart failure, unspecified - Unspecified abdominal pain - Chest pain, unspecified - Chronic obstructive pulmonary disease, unspecified - Personal history of nicotine dependence - Chest pain, unspecified - skilled nursing (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 of aspirin - Prsnl hx of TIA (TIA), and cereb infrc w/o resid deficits - skilled nursing (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 of insulin - Hypomagnesemia - 1 Hyp hrt \T\ chr kdny dis w hrt fail and stg 1-4/unsp chr kdny - 1 Chronic kidney disease, stage 4 (severe) - Other chcf (current) drug therapy 09/27/2019 12:22 [facility] [place] TYPE: Emergency COMPLAINT: - SOB 03/03/2019 06:55 [facility] [place] TYPE: Emergency COMPLAINT: - SOB DIAGNOSES: - termite exterminator (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 of insulin - Nicotine dependence, unspecified, uncomplicated - termite exterminator (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 of aspirin - 1 Type 2 diabetes mellitus w diabetic chronic kidney disease - Prsnl hx of TIA (TIA), and cereb infrc w/o resid deficits - 1 Chronic kidney disease, stage 4 (severe) - Other salvage determiner (current) drug therapy - Chronic obstructive pulmonary disease w (acute) exacerbation - Shortness of breath - 1 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 - Nicotine dependence, unspecified, uncomplicated - Panlobular emphysema - Panlobular emphysema - 1 Type 2 diabetes mellitus w diabetic chronic kidney disease - termite exterminator (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 of insulin - Allergy status to oth drug/meds/biol subst status - Opioid dependence, uncomplicated - Other chcf (current) drug therapy - Nicotine dependence, unspecified, uncomplicated - Pneumonia due to Streptococcus pneumoniae - Chronic pain syndrome - Dependence on wheelchair - skilled nursing (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 of insulin - Acquired absence [...] Hyperlipidemia, unspecified - Drug induced constipation - skilled nursing (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 of aspirin - Anemia in chronic kidney disease - 1 Hypertensive chronic kidney disease w stg 1-4/unsp chr kdny - skilled nursing (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 of aspirin - Adverse effect of other opioids, initial encounter - termite exterminator (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 of antithrombotics/antiplatelets - Opioid dependence, uncomplicated - Other salvage determiner (current) drug therapy 02/15/2019 22:22 [facility] [place] TYPE: Observation COMPLAINT: - STERCORAL COLITIS DIAGNOSES: - skilled nursing (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 of antithrombotics/antiplatelets - 1 Hypertensive [...] and cereb infrc w/o resid deficits - skilled nursing (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 of insulin - Accidental pnctr \T\ lac of a dgstv sys org dur dgstv sys proc - Chronic obstructive pulmonary disease, unspecified - Noninfective gastroenteritis and colitis, unspecified - Gastro-esophageal reflux disease without esophagitis - Other chcf (current) drug therapy - Other chronic pain - Acquired absence of left leg above knee [email or web address]
--- NOTE | 2019-11-19 12:48 | EKG ---
[facility] [address] [place] [address] Signed Normal sinus rhythm Normal ECG When compared with ECG of 10-OCT-2019 20:29, No significant change was found Confirmed by BROOKE FERNÁNDEZ DO ([id number]) on 11/19/2019 12:47:50 PM Electronically Signed By: BROOKE FERNÁNDEZ DO 11/19/19 1248 PATIENT NAME: PORFIRIO ZAVALA OSWALDO Electrocardiogram DATE OF : 40 PHYSICIAN: BROOKE FERNÁNDEZ DO REPORT #: [id number] REPORT IS CONFIDENTIAL AND NOT TO BE RELEASED WITHOUT AUTHORIZATION
== END 2019-11-19 01:32 | disposition home or self-care (01) ==
LOC: ED 21:05
DX: R41.0 Disorientation, unspecified (principal); J44.9 Chronic obstructive pulmonary disease, unspecified; E11.22 Type 2 diabetes mellitus with diabetic chronic kidney disease; I13.0 Hypertensive heart and chronic kidney disease with heart failure and stage 1 through stage 4 chronic kidney disease, or unspecified chronic kidney disease; N18.4 Chronic kidney disease, stage 4 (severe); I50.9 Heart failure, unspecified; Z99.2 Dependence on renal dialysis; Z87.891 Personal history of nicotine dependence; Z79.899 Other long term (current) drug therapy
CPT/HCPCS: 70450; 71045; 80053; 81001; 82140; 84484; 85025; 85610; 85730; 93005; 93010; 99285-25; G0480

== ENCOUNTER 2020-02-14 22:26 | Emergency (ER) | payer MEDICARE, OTHER ==
[~2020-02-14] VITALS: Ht 172.7 cm; Wt 86.2 kg
--- OUTSIDE RECORDS SUMMARY | 2020-02-14 22:28 | XMS ---
PreManage Notification: PORFIRIO ZAVALA Security Special Education Case Manager Events No recent Security Events currently on file CRITERIA MET - History of Sepsis Dx - [facility] HARDIK Van PHONE: [phone] Alina Clark Sales Ledger Clerk/Agricultural Service Worker 08/31/2018-Current PHONE: [phone] Alina Clark Primary Care 08/31/2018-Current PHONE: [phone] Domenic Gutiérrez Case or Hydraulic Jack Mechanic Current PHONE: [phone] HARDIK Van Primary Care 08/31/2015-Rodney CONYE PHONE: Unknown Agapito has no Care Guidelines for this patient. Care History Medical/Surgical 11/10/2019 [facility] - PLEASE MAKE SURE- ALL RECORDS ARE SENT TO DR ACUNA-PATIENT SOCK IRONER IN [place]. 05/28/2018 [facility] - Patient currently sees exterminator helper Dr Acuna and patient has last seen [...] ED please contact Community Health WorkerLizzy at [phone]. These are guidelines and the provider should exercise clinical judgment when providing care. 07/25/2017 [facility] HISTORY: COPD, DMII, HTN, CVA X3, KIDNEY FAIL STAGE 3 WITH SHORT TERM DIALYSIS, CPAP USE SURGERY HISTORY: GILBERT ESPINAL, PANCRETIC TUMOR REMOVAL [facility] VISIT COUNT (12 MO.) [address] [facility] TOTAL 7 NOTE: Visits indicate total known visits. ED/UCC VISIT TRACKING (12 MO.) 02/14/2020 22:26 [facility] [place] TYPE: Emergency COMPLAINT: - HIGH BLOOD SUGAR 11/18/2019 21:05 [facility] [place] TYPE: Emergency COMPLAINT: - CONFUSION DIAGNOSES: - 1 Chronic kidney disease, stage 4 (severe) - Dependence on renal dialysis - 1 Hyp hrt \T\ chr kdny dis w hrt fail and stg 1-4/unsp chr kdny - Heart failure, unspecified - Disorientation, unspecified - 1 Type 2 diabetes mellitus w diabetic chronic kidney disease - Other truck terminal manager (current) drug therapy - Chronic obstructive pulmonary disease, unspecified - Personal history of nicotine dependence 11/04/2019 13:11 [facility] [place] TYPE: Emergency COMPLAINT: - MEMORY PROBLEM DIAGNOSES: - Heart failure, unspecified - Allergy status to oth drug/meds/biol subst status - Anemia in chronic kidney disease - Other prison (current) drug therapy - Personal history of nicotine dependence - 1 Hyp hrt \T\ chr kdny dis w hrt fail and stg 1-4/unsp chr kdny - 1 Chronic kidney disease, stage 4 (severe) - truck terminal manager (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 of insulin - Acute kidney failure, unspecified - Dependence on other enabling machines and devices - Vascular dementia without behavioral disturbance - truck terminal manager (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 of anticoagulants - truck terminal manager (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 of aspirin - 1 Type 2 diabetes mellitus w diabetic chronic kidney disease - Chronic obstructive pulmonary disease, unspecified - Dependence on renal dialysis - Unspecified coma - Prsnl hx of TIA (TIA), and cereb infrc w/o resid deficits 10/10/2019 20:25 [facility] [place] TYPE: Emergency COMPLAINT: - CHEST PAIN DIAGNOSES: - Allergy status to oth drug/meds/biol subst status - 1 Type 2 diabetes mellitus w diabetic chronic kidney disease - Heart failure, unspecified - Unspecified abdominal pain - Chest pain, unspecified - Chronic obstructive pulmonary disease, unspecified - Personal history of nicotine dependence - Chest pain, unspecified - truck terminal manager (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 of aspirin - Prsnl hx of TIA (TIA), and cereb infrc w/o resid deficits - truck terminal manager (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 of insulin - Hypomagnesemia - 1 Hyp hrt \T\ chr kdny dis w hrt fail and stg -/unsp chr kdny - 1 Chronic kidney disease, stage 4 (severe) - Other truck terminal manager (current) drug therapy 09/27/2019 12:22 [facility] [place] TYPE: Emergency COMPLAINT: - SOB 03/03/2019 06:55 [facility] [place] TYPE: Emergency COMPLAINT: - SOB DIAGNOSES: - truck terminal manager (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 of insulin - Nicotine dependence, unspecified, uncomplicated - truck terminal manager (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 of aspirin - 1 Type 2 diabetes mellitus w diabetic chronic kidney disease - Prsnl hx of TIA (TIA), and cereb infrc w/o resid deficits - 1 Chronic kidney disease, stage 4 (severe) - Other truck terminal manager (current) drug therapy - Chronic obstructive pulmonary disease w (acute) exacerbation - Shortness of breath - 1 Hypertensive chronic kidney disease w stg -/unsp chr kdny 02/15/2019 22:21 [facility] [place] TYPE: Emergency COMPLAINT: - CONSTIPATED INPATIENT VISIT TRACKING (12 MO.) 09/27/2019 16:43 [facility] [place] TYPE: Medical Surgical COMPLAINT: - PNA DIAGNOSES: - Adverse effect of other opioids, initial encounter - [facility] (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 of antithrombotics/antiplatelets - Anemia in chronic kidney disease - Acquired absence of left leg above knee - 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 classd elswhr - Nicotine dependence, unspecified, uncomplicated - Panlobular emphysema - Panlobular emphysema - 1 Type 2 diabetes mellitus w diabetic chronic kidney disease - truck terminal manager (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 of insulin - Allergy status to oth drug/meds/biol subst status - Opioid dependence, uncomplicated - Other truck terminal manager (current) drug therapy - Nicotine dependence, unspecified, uncomplicated - Pneumonia due to Streptococcus pneumoniae - Chronic pain syndrome - Dependence on wheelchair - truck terminal manager (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 of insulin - Acquired absence [...] Hyperlipidemia, unspecified - Drug induced constipation - [facility] (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 of aspirin - Anemia in chronic kidney disease - 1 Hypertensive chronic kidney disease w stg 1-4/unsp chr kdny - truck terminal manager (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 of aspirin - Adverse effect of other opioids, initial encounter - [facility] (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 of antithrombotics/antiplatelets - Opioid dependence, uncomplicated - Other prison (current) drug therapy 02/15/2019 22:22 [facility] [place] TYPE: Observation COMPLAINT: - STERCORAL COLITIS DIAGNOSES: - truck terminal manager (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 of antithrombotics/antiplatelets - 1 Hypertensive [...] and cereb infrc w/o resid deficits - [facility] (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 of insulin - Accidental pnctr \T\ lac of a dgstv sys org dur dgstv sys proc - Chronic obstructive pulmonary disease, unspecified - Noninfective gastroenteritis and colitis, unspecified - Gastro-esophageal reflux disease without esophagitis - Other prison (current) drug therapy - Other chronic pain - Acquired absence of left leg above knee [email or web address]
[2020-02-14] MEDS ORDERED: MAALOX ADVANCE355 ML PO (23:17)
--- NOTE | 2020-02-15 20:50 | EKG ---
[facility] [address] [place], [place] [address] Signed Normal sinus rhythm Nonspecific ST abnormality Abnormal ECG When compared with ECG of 18-NOV-2019 21:19, Nonspecific T wave abnormality, worse in Inferior leads Confirmed by BROOKE FERNÁNDEZ DO ([id number]) on 02/15/2020 8:49:52 PM Electronically Signed By: BROOKE FERNÁNDEZ DO 02/15/202049 PATIENT NAME: PORFIRIO ZAVALA Electrocardiogram DATE OF : 40 PHYSICIAN: BROOKE FERNÁNDEZ DO REPORT #: [id number] REPORT IS CONFIDENTIAL AND NOT TO BE RELEASED WITHOUT AUTHORIZATION
== END 2020-02-14 23:43 | disposition home or self-care (01) ==
LOC: ED 22:26
DX: E11.65 Type 2 diabetes mellitus with hyperglycemia (principal); R07.9 Chest pain, unspecified; J44.9 Chronic obstructive pulmonary disease, unspecified; I11.0 Hypertensive heart disease with heart failure; I50.9 Heart failure, unspecified; F17.200 Nicotine dependence, unspecified, uncomplicated
CPT/HCPCS: 71045; 80053; 82010; 82800; 84484; 85025; 93005; 93010; 99285-25

== ENCOUNTER 2020-05-08 19:12 | Emergency (ER) | payer MEDICARE, OTHER ==
[~2020-05-08] VITALS: Ht 172.7 cm; Wt 86.2 kg
--- OUTSIDE RECORDS SUMMARY | ~2020-05-08 | XMS | Encounter Summary ---
Demographics + + + | Address | [address] | | | [place] [address] | + + + | Home Phone | | + + + | Preferred Language | Unknown | + + + | Marital Status | | + + + | Adventism Affiliation | 1077 | + + + | Race | Unknown | + + + | Ethnic Group | Unknown | + + + Author + + + | Author | [facility] | | | and [place] | + + + | Organization | [facility] | | [...] Team Providers + +------+ + | Care Building Certifier Name | Role | Phone | + +------+ + | Mehrdad Bergman | PCP | | + +------+ + Encounter Details +--------+ + + + + | Date | Type | Department | Care Team | Description | +--------+ + + + + | 03/14/ | Imaging | [facility] | Provider, | | | 2020 | Exam | [facility] | MD [address] | | | | | IMAGING [address] | [address] | | | | | [address] | [place] [address] | | | | | [place] [address] | | | | | | [phone] | | | +--------+ + + + [...] Description | +--------+---------+ + + + | 06/05/ | Office | Nephrology | Farrkuh Acuna MD | | | 2020 | Visit | | [address] [facility] | | | | | | [address] [place] | | | | | | [address] | | | | | | | | +--------+---------+ + + + documented as of this encounter Procedures + +--------+ + + + | Procedure Name | Priori | Date/Time | Associated Diagnosis | Comments | | | ty | | | | + +--------+ + + + | XR CHEST 2 VIEWS | Routin | 07/28/2014 | | Results for this | | | e | 12:00 AM | | procedure are in the | | | | PDT | | results section. | + +--------+ + + + documented in this encounter Results XR Chest 2 Vws (07/28/2014 12:00 AM PDT) + + | Specimen | + + | | + + + + + | Narrative | Performed At | + + + | External films for comparison only | [facility] | | | | | No results will be in the chart. | | + + + + +---------+ + + | Performing | Address | City/State/Zipcode | Phone Number | | Organization | | | | + +---------+ + + | [facility] | | | | + +---------+ + + documented in this encounter Visit Diagnoses Not on filedocumented in this encounter"
--- OUTSIDE RECORDS SUMMARY | ~2020-05-08 | XMS | Encounter Summary ---
Demographics + + + | Address | [address] | | | [place] [address] | + + + | Home Phone | | + + + | Preferred Language | Unknown | + + + | Marital Status | | + + + | Baptism Affiliation | 1077 | + + + | Race | Unknown | + + + | Ethnic Group | Unknown | + + + Author + + + | Author | [facility] | | | and [place] | + + + | Organization | [facility] | | | and [...] Team Providers + +------+ + | Care Chemical Equipment Repairer Name | Role | Phone | + +------+ + | Rahul Silva MD | PCP | | + +------+ + Encounter Details +--------+ + + + + | Date | Type | Department | Care Team | Description | +--------+ + + + + | 07/14/ | Orders Only | [facility] | Farrukh Acuna MD | | | 2018 | | NEPRHOLOGY [place] | [address] | | | | | [address] | [address] [place], [place] | | | | | [address] [place], [place] | [address] | | | | | [address] | | | | | | [phone] | | | +--------+ + + + [...] | 06/05/ | Office | Nephrology | Farrukh Acuna MD | | | 2020 | Visit | | [address] [facility] | | | | | | [address] [place] | | | | | | [address] | | | | | | | [...]
--- OUTSIDE RECORDS SUMMARY | ~2020-05-08 | XMS | Encounter Summary ---
Demographics + + + | Address | [address] | | | [place] [address] | + + + | Home Phone | | + + + | Preferred Language | Unknown | + + + | Marital Status | | + + + | Yazidism Affiliation | 1077 | + + + | Race | Unknown | + + + | Ethnic Group | Unknown | + + + Author + + + | Author | [facility] | | | and [place] | + + + | Organization | [facility] | | [...] Team Providers + +------+ + | Care Sail Repair Person Name | Role | Phone | + +------+ + | Rahul Silva MD | PCP | | + +------+ + Encounter Details +--------+ + + + + | Date | Type | Department | Care Team | Description | +--------+ + + + + | 02/12/ | Orders Only | [facility] | Conversion | | | 2018 | | NEPHROLOGY [place] | Transaction, | | | | | [address] | Provider Unknown | | | | | [address] [place] | | | | | | [address] | (Fax) | | | | | [phone] | | | +--------+ + + + [...] 2020 | Visit | | [address] [facility] | | | | | | [facility] | | | | | | [address] | | | | | | | | +--------+---------+ + + + documented as of this encounter Procedures + +--------+ + + + | Procedure Name | Priori | Date/Time | Associated Diagnosis | Comments | | | ty | | | | + +--------+ + + + | IRON AND IRON | Routin | 02/12/2018 | | Results for this | | BINDING CAPACITY | e | 12:50 PM | | procedure are in the | | | | PDT | | results section. | + +--------+ + + + | TRANSFERRIN | Routin | 02/12/2018 | | Results for this | | | e | 12:50 PM | | procedure are in the | | | | PDT | | results section. | + +--------+ + + + documented in this encounter Results Iron and Iron Binding Capacity (02/12/2018 12:50 PM PDT) + +-------+ + + + | Component | Value | Ref Range | Performed | Pathologist | | | | | At | Signature | + +-------+ + + + | Iron | 76.85 | 37 - 160 | EXTERNAL | | | | | | LAB | | + +-------+ + + + | Iron | 26.1 | 20 - 55 | EXTERNAL | | | Saturation | | | LAB | | + +-------+ + + + | TIBC | 294 | 245 - 400 | EXTERNAL | [...] | | + +---------+ + + Transferrin (02/12/2018 12:50 PM PDT) + +--------+ + + + | Component | Value | Ref Range | Performed | Pathologist | | | | | At | Signature | + +--------+ + + + | TRANSFERRIN | 210.32 | 180 - 329 | EXTERNAL | [...]
--- OUTSIDE RECORDS SUMMARY | ~2020-05-08 | XMS | Encounter Summary ---
Demographics + + + | Address | [address] | | | [place] [address] | + + + | Home Phone | | + + + | Preferred Language | Unknown | + + + | Marital Status | | + + + | Quaker Affiliation | 1077 | + + + | Race | Unknown | + + + | Ethnic Group | Unknown | + + + Author + + + | Author | [facility] | | | and [place] | + + + | Organization | [facility] | | | and [...] Team Providers + +------+ + | Care Snorkelling Instructor Name | Role | Phone | + +------+ + | Mehrdad Bergman | PCP | | + +------+ + Reason for Visit +--------+ + | Reason | Comments | +--------+ + | Other | Clarification on lab orders | +--------+ + Encounter Details +--------+ + + + + | Date | Type | Department | Care Team | Description | +--------+ + + + + | 03/20/ | Telephone | [facility] | Sandy Capellan | Other (Clarification | | 2019 | | NEPRHOLOGY [place] | BAN Valadez | on lab orders) | | | | [address] | | | | | | [address] [facility] [place] | | | | | | [address] | | | | | | [phone] | | | +--------+ + + + [...] 2020 | Visit | | [address] [facility] | | | | | | [address] [place] | | | | | | [address] | | | | | | | | +--------+---------+ + + + documented as of this encounter Visit Diagnoses Not on filedocumented in this encounter"
--- OUTSIDE RECORDS SUMMARY | ~2020-05-08 | XMS | Encounter Summary ---
Demographics + + + | Address | [address] | | | [place] [address] | + + + | Home Phone | | + + + | Preferred Language | Unknown | + + + | Marital Status | | + + + | Taoist Affiliation | 1077 | + + + [...] Team Providers + +------+ + | Care Child And Family Services Specialist Name | Role | Phone | + +------+ + | Rahul Sivla MD | PCP | | + +------+ + Reason for Visit + + + | Reason | Comments | + + + | Lab Results | | + + + Encounter Details +--------+ + + + + | Date | Type | Department | Care Team | Description | +--------+ + + + + | 09/03/ | Telephone | [facility] | Simon, | Lab Results | | 2019 | | NEPHROLOGY [place] | [facility] | | | | | [address] | Gambling Counsellor | | | | | [address] [place], [place] | | | | | | [address] | | | | | | [phone] | | | +--------+ + + + [...] 2020 | Visit | | [address] [facility] | | | | | | [address] [place] | | | | | | [address] | | | | | | | | +--------+---------+ + + + documented as of this encounter Visit Diagnoses Not on filedocumented in this encounter"
--- OUTSIDE RECORDS SUMMARY | ~2020-05-08 | XMS | Encounter Summary ---
Demographics + + + | Address | [address] | | | [place] [address] | + + + | Home Phone | | + + + | Preferred Language | Unknown | + + + | Marital Status | | + + + | Restorationism Affiliation | 1077 | + + + | Race | Unknown | + + + | Ethnic Group | Unknown | + + + Author + + + | Author | [facility] | | | and [place] | + + + | Organization | [facility] | | | [...] Team Providers + +------+ + | Care Tablet Coater Name | Role | Phone | + +------+ + | Rahul Silva MD | PCP | | + +------+ + Encounter Details +--------+ + + + + | Date | Type | Department | Care Team | Description | +--------+ + + + + | 02/15/ | Orders Only | [facility] | Conversion | | | 2019 | | NEPHROLOGY [place] | Transaction, | | | | | [address] | Provider Unknown | | | | | [address] [place] | | | | | | [address] | (Fax) | | | | | [phone] | | | +--------+ + + + [...] 2020 | Visit | | [address] [facility] | | | | | | [facility] | | | | | | [address] | | | | | | | | +--------+---------+ + + + documented as of this encounter Procedures + +--------+ + + + | Procedure Name | Priori | Date/Time | Associated Diagnosis | Comments | | | ty | | | | + +--------+ + + + | EXTERNAL LAB: [facility] | Routin | 02/15/2019 | | Results for this | | | e | 11:29 PM | | procedure are in the | | | | PDT | | results section. | + +--------+ + + + | COMPREHENSIVE | Routin | 02/15/2019 | | Results for this | | METABOLIC PANEL | e | 11:29 PM | | procedure are in the | | | | PDT | | results section. | + +--------+ + + + documented in this encounter Results External Lab: [facility] (02/15/2019 11:29 PM PDT) + + + + + + | Component | Value | Ref Range | Performed | Pathologist | | | | | At | Signature | + + + + + + | WBC | 14.7 (A) | 4.5 - 11.0 10 | EXTERNAL | | | | | | LAB | | + + + + + + | Red Blood | 3.87 (A) | 4.3 - 5.7 10 | EXTERNAL | | | Cells | | | LAB | | | Counted | | | | | + + + + + + | Hemoglobin | 11.1 (A) | 13.5 - 18.0 | EXTERNAL | | | | | g/dL | LAB | | + + + + + + | Hematocrit, | 33.2 (A) | 41 - 50 % | EXTERNAL | | | POC | | | LAB | | + + + + + + | MCV | 85.7 | 81 - 99 fL | EXTERNAL [...] + + + + | Platelet | 305 | 140 - 440 K/ L | EXTERNAL | | | Count | | | LAB | | | Plasma | | | | | + + + + + + | RDW-CV | 14.4 | 10.5 - 15.0 % | EXTERNAL [...] + + + | % Segmented | 85.9 (A) | 39 - 80 % | EXTERNAL | | | | | | LAB | | | Neutrophils | | | | | + + + + + + | % | 5.9 (A) | 24 - 44 % | EXTERNAL | | | Lymphocytes | | | LAB | | + + + + + + | % Monocytes | 5.2 | 0 - 12 % | EXTERNAL | | | | | | LAB | | + + + + + + | % | 2.3 | 0 - 6 % | EXTERNAL [...] | | | + +---------+ + + Comprehensive Metabolic Panel (02/15/2019 11:29 PM PDT) + + + + + + | Component | Value | Ref Range | Performed | Pathologist | | | | | At | Signature | + + + + + + | Glucose, | 175 (A) | 70 - 100 mg/dL | EXTERNAL | | | Fasting | | | LAB | | + + + + + + | BUN | 54 (A) | 6 - 23 mg/dL | EXTERNAL | | | | | | LAB | | + + + + + + | Creatinine | 3.87 (A) | 0.70 - 1.18 | EXTERNAL | | | | | mg/dL | LAB | | + + + + + + | BUN/Creatin | 14.0 | 6.0 - 28.6 | EXTERNAL | | | ine Ratio | | | LAB | | + + + + + + | Calcium | 9.7 | 8.5 - 10.3 | EXTERNAL | | | | | mg/dL | LAB | | + + + + + + | Protein, | 7.2 | 6.0 - 8.3 g/dL | EXTERNAL | | | Total | | | LAB | | + + + + + + | Albumin | 4.0 | 3.5 - 5.0 | EXTERNAL | | | | | | LAB | | + + + + + + | Globulin | 3.2 | 1.8 - 3.5 | EXTERNAL | | | | | | LAB | | + + + + + + | A/G Ratio | 1.3 | 1.1 - 2.4 | EXTERNAL | | | | | | LAB | | + + + + + + | Bilirubin | 0.4 | 0.0 - 1.2 mg/dL | EXTERNAL | | | Total | | | LAB | | + + + + + + | ALP, | 79 | 31 - 120 | EXTERNAL | | | External | | | LAB | | + + + + + + | ALT | 6 (A) | 7 - 52 U/L | EXTERNAL | | | | | | LAB | | + + + + + + | AST | 9 (A) | 13 - 39 U/L | EXTERNAL | | | | | | LAB | | + + + + + + | Na | 141 | 132 - 143 | EXTERNAL | | | | | mmol/L | LAB | | + + + + + + | K | 3.9 | 3.6 - 5.1 | EXTERNAL | | | | | mmol/L | LAB | | + + + + + + | Cl | 94 (A) | 95 - 112 mmol/L | EXTERNAL | | | | | | LAB | | + + + + + + | CO2 | 35 (A) | 19 - 31 mmol/L | EXTERNAL | | | | | | LAB | | + + + + + + | Anion Gap | 15.9 | 7 - 21 mmol/L | EXTERNAL | | | | | | LAB | | + + + + + + | Estimated | 15 (A) | 60 - 140 mg/dL | [...]
--- OUTSIDE RECORDS SUMMARY | ~2020-05-08 | XMS | Encounter Summary ---
Demographics + + + | Address | [address] | | | [place] [address] | + + + | Home Phone [...] Team Providers + +------+ + | Care Electronics Inspector Name | Role | Phone | + +------+ + | Rahul Silva MD | PCP | | + +------+ + Encounter Details +--------+ + + + + | Date | Type | Department | Care Team | Description | +--------+ + + + + | 10/08/ | Orders Only | [facility] | Farrukh Acuna MD | | | 2016 | | NEPHROLOGY [place] | [address] | | | | | [address] | [address] [place], [place] | | | | | [address] [place], [place] | [address] | | | | | [address] | | | | | | [phone] | | | +--------+ + + + [...] 2020 | Visit | | [address] [facility] | | | | | | [address] [place] [address] | | | | | | [address] | | | | | | | [...]
--- OUTSIDE RECORDS SUMMARY | ~2020-05-08 | XMS | Encounter Summary ---
Demographics + + + | Address | [address] | | | [place] [address] | + + + | Home Phone | | + + + | Preferred Language | Unknown | + + + | Marital Status | | + + + | Orthodoxy Affiliation | 1077 | + + + | Race | Unknown | + + + | Ethnic Group | Unknown | + + + Author + + + | Author | [facility] | | | and [place] | + + + | Organization | [facility] [...] Team Providers + +------+ + | Care Coding Clerk Name | Role | Phone | + [...] + + | 08/25/ | Telephone | [facility] | Brian Orosco MD | New Patient (08/26 | | 2019 | | VASCULAR SURGERY | [address] | appointment) | | | | [address] | [address] [place], [place] | | | | | [place], [place] | [address] | | | | | [address] | [phone] | | | | | [phone] | | | +--------+ + + + [...] 2020 | Visit | | [address] [facility] | | | | | | [address] [place] | | | | | | [address] | | | | | | | | +--------+---------+ + + + documented as of this encounter Visit Diagnoses Not on filedocumented in this encounter"
--- OUTSIDE RECORDS SUMMARY | ~2020-05-08 | XMS | Encounter Summary ---
Demographics + + + | Address | [address] | | | [place] [address] | + + + | Home Phone [...] Team Providers + +------+ + | Care Breadman Name | Role | Phone | + +------+ + | Rahul Silva MD | PCP | | + +------+ + Reason for Visit Auth/Cert +--------+--------+ + + + + | Status | Reason | Specialty | Diagnoses / | Referred By | Referred To | | | | | Procedures | Contact | Contact | +--------+--------+ + + + + | | | | Diagnoses | | | | | | | CKD | | | | | | | (chronic | | | | | | | kidney | | | | | | | disease) | | | | | | | stage 5, GFR | | | | | | | less than | | | | | | | 15 ml/min | | | | | | | ([facility]) | | | | | | | Procedures | | | | | | | INSERTION AV | | | | | | | FISTULA | | | | | | | (Right [facility]) | | | +--------+--------+ + + + + Encounter Details +--------+---------+ + + + | Date | Type | Department | Care Team | Description | +--------+---------+ + + + | 09/10/ | Surgery | [facility] | Brian Orosco MD | INSERTION AV FISTULA | | 2019 | [facility] | [address] | (Right [facility]BF) | | | | OPERATING RO[address] | [place], [place] | | | | | [place] | [address] | | | | | [place], [place] | [phone] | | | | | [address] | | | | | | [phone] | | | +--------+---------+ + + + [...] + + + | Blood Pressure | 132/59 | 09/10/2019 4:00 PM | | | | | PDT | | + + + + + | Pulse | 61 | 09/10/2019 4:00 PM | | | | | PDT | | + + + + + | Temperature | 36.3 C (97.4 F) | 09/10/2019 2:07 PM | | | | | PDT | | + + + + + | Respiratory Rate | 14 | 09/10/2019 2:30 PM | | | | | PDT | | + + + + + | Oxygen Saturation | 93% | 09/10/2019 4:00 PM | | | | | PDT | | + + + + + | Inhaled Oxygen | - | - | | | Concentration | | | | + + + + + | Weight | 80.7 kg (178 lb) | 09/10/2019 12:15 PM | | | | | PDT | | + + + + + | Height | 172.7 cm (5' 8") | 09/10/2019 12:15 PM | | | | | PDT | | + + + + + | Body Mass Index | 27.06 | 09/10/2019 12:15 PM | | | | | PDT | | + + + + + documented in this encounter Discharge Instructions Instructions Argenis Saucedo RN - 09/10/2019Formatting of this note might be different fro m the original. Dr. Orosco AV DIALYSIS SHUNT/FISTULA DISCHARGE INSTRUCTIONS Your physician has placed/revised an arteriovenous (AV) shunt/fistula in your arm for your dialysis treatments. It is very important to protect your arm to prevent cutting off the jayden w of blood in your shunt. Dressing Care: ? Keep the dressings clean and dry for 48 hours (2 days). Do not remove the dressing durin g that time. ? After 48 hours (2 days) remove the outer portion of the dressing, leaving the steri-strip s in place. ? Leave the steri-strips that cover the skin incision in place for 14 days. ? If your dressings get wet, remove the dressing and replace with sterile gauze. If you do not have any dressing supplies, call your physician s office. ? Do not use dressings that place pressure on the shunt or completely encircle your arm or wrist. Shunt Care: ? DO NOT let anyone take your blood pressure, place a tourniquet, start an IV or draw blood from the arm with the shunt. ? DO NOT wear jewelry or tight sleeves on the arm with the shunt. ? DO NOT sleep on your shunt or carry anything hanging over the arm that has the shunt. ? DO NOT let anyone access the shunt except the Dialysis Center nurse or physician. Notify your physician if you notice the following: ? Loss of the thrill over the shunt ? Loss of pulsation over the shunt ? Pain or hardness in the area of the shunt ? Redness or swelling in the arm or drainage from the incision If there is an injury to the shunt and it begins to bleed, keep continuous pressure to the site and seek emergency care immediately. Use the thumb on the opposite hand to hold pressur e until help is obtained. If you have any questions or concerns regarding your dialysis shunt, please contact your ph ysician at [phone]. Discharge instructions for [facility] sedation patients Adult Discharge Instructions: 1. We suggest you start with liquids and increase your diet as tolerated. Call [facility] if you have persistent nausea or vomiting. 2. You should rest the remainder of the day. 3. For the next 24 hours, you should not: -Drive a car, operate machinery or power tools. -Drink any alcoholic beverages, including beer, wine, or other spirits. -Smoke unattended. -Make any important decisions. -Cook or bake unsupervised. 4. You may take your regular medications at any time. Pediatric Discharge Instructions: 1. Keep child quiet until fully awake. 2. Protect child from danger. Do not let toddler or walking children walk without assistance and/or supervision. 3. Do not feed child until fully awake. Start with clear liquids (water is best, milk is no t a clear liquid) and progress diet slowly until normal diet is resumed. 4. Stay in close proximity of the child; do not leave unattended for a minimum of 24 hours after sedation, or until child has returned completely to pre-sedation state. 5. Small children and babies need to have their car seat in a reclining position for the ri az home, or have an adult in the back seat monitoring them. This prevents their head from f alling forward and causing their airway to be blocked should they fall asleep. 6. Call the Diagnostic Imaging department for any persistent vomiting. 7. You may resume regular medications at any time. If you have any questions, you may reach the [facility] nurse at . For any severe symptoms, please call 911 or report to your nearest Emergency Department. Acetaminophen; Hydrocodone tablets or capsules Brand Names: Anexsia, Lorcet, Lorcet HD, Lorcet Plus, Lortab, [place], Verdrocet, Vicodin, Vi codin ES, Vicodin HP, Xodol What is this medicine? ACETAMINOPHEN; HYDROCODONE (a set a NOEL mayur fen; dorian droe KOE done) is a pain reliever. It is used to treat moderate to severe pain. How should I use this medicine? Take this medicine by mouth with a glass of water. Follow the directions on the prescriptio n label. You can take it with or without food. If it upsets your stomach, take it with food. Do not take your medicine more often than directed. A special MedGuide will be given to you by the pharmacist with each prescription and refill . Be sure to read this information carefully each time. Talk to your observer electrical prospecting regarding the use of this medicine in children. Special care may be needed. What side effects may I notice from receiving this medicine? Side effects that you should report to your doctor or health animal care supervisor as soon as p ossible: allergic reactions like skin rash, itching or hives, swelling of the face, lips, or tong ue breathing problems confusion redness, blistering, peeling or loosening of the skin, including inside the mouth signs and symptoms of low blood pressure like dizziness; feeling faint or lightheaded, f alls; unusually weak or tired trouble passing urine or change in the amount of urine yellowing of the eyes or skin Side effects that usually do not require medical attention (report to your doctor or health animal care supervisor if they continue or are bothersome): constipation dry mouth nausea, vomiting tiredness What may interact with this medicine? This medicine may interact with the following medications: alcohol antiviral medicines for HIV or AIDS atropine antihistamines for allergy, cough and cold certain antibiotics like erythromycin, clarithromycin certain medicines for anxiety or sleep certain medicines for bladder problems like oxybutynin, tolterodine certain medicines for depression like amitriptyline, fluoxetine, sertraline certain medicines for fungal infections like ketoconazole and itraconazole certain medicines for Parkinson's disease like benztropine, trihexyphenidyl certain medicines for seizures like carbamazepine, phenobarbital, phenytoin, primidone certain medicines for stomach problems like dicyclomine, hyoscyamine certain medicines for travel sickness like scopolamine general anesthetics like halothane, isoflurane, methoxyflurane, propofol ipratropium local anesthetics like lidocaine, pramoxine, tetracaine MAOIs like Carbex, Eldepryl, Marplan, Nardil, and Parnate medicines that relax muscles for surgery other medicines with acetaminophen other narcotic medicines for pain or cough phenothiazines like chlorpromazine, mesoridazine, prochlorperazine, thioridazine rifampin What if I miss a dose? If you miss a dose, take it as soon as you can. If it is almost time for your next dose, ta ke only that dose. Do not take double or extra doses. Where should I keep my medicine? Keep out of the reach of children. This medicine can be abused. Keep your medicine in a saf e place to protect it from theft. Do not share this medicine with anyone. Selling or giving away this medicine is dangerous and against the law. Store at room temperature between 15 and 30 degrees C (59 and 86 degrees F). This medicine may cause harm and if it is taken by other adults, children, or pets. R eturn medicine that has not been used to an official disposal site. Contact the [facility] at [phone] or your [facility] to find a site. If you cannot return the medicine, flush it down the toilet. Do not use the medicine after the expiration date. What should I tell my health care provider before I take this medicine? They need to know if you have any of these conditions: brain tumor Crohn's disease, inflammatory bowel disease, or ulcerative colitis drug abuse or addiction head injury heart or circulation problems if you often drink alcohol kidney disease or problems going to the bathroom liver disease lung disease, asthma, or breathing problems an unusual or allergic reaction to acetaminophen, hydrocodone, other opioid analgesics, other medicines, foods, dyes, or preservatives or trying to get breast-feeding What should I watch for while using this medicine? Tell your doctor or health animal care supervisor if your pain does not go away, if it gets wors e, or if you have new or a different type of pain. You may develop tolerance to the medicine . Tolerance means that you will need a higher dose of the medicine for pain relief. Toleranc e is normal and is expected if you take the medicine for a long time. Do not suddenly stop taking your medicine because you may develop a severe reaction. Your b earnest becomes used to the medicine. This does NOT mean you are addicted. Addiction is a behavi or related to getting and using a drug for a non-medical reason. If you have pain, you have a medical reason to take pain medicine. Your doctor will tell you how much medicine to take. If your doctor wants you to stop the medicine, the dose will be slowly lowered over time to avoid any side effects. There are different types of narcotic medicines (opiates). If you take more than one type a t the same time or if you are taking another medicine that also causes drowsiness, you may h ave more side effects. Give your health care provider a list of all medicines you use. Your doctor will tell you how much medicine to take. Do not take more medicine than directed. Joel zoë emergency for help if you have problems breathing or unusual sleepiness. Do not take other medicines that contain acetaminophen with this medicine. Always read farhan garzon carefully. If you have questions, ask your doctor or pharmacist. If you take too much acetaminophen get medical help right away. Too much acetaminophen can be very dangerous and cause liver damage. Even if you do not have symptoms, it is important to get help right away. You may get drowsy or dizzy. Do not drive, use machinery, or do anything that needs mental alertness until you know how this medicine affects you. Do not stand or sit up quickly, tisha ciahailey if you are an older patient. This reduces the risk of dizzy or fainting spells. Alcoh ol may interfere with the effect of this medicine. Avoid alcoholic drinks. The medicine will cause constipation. Try to have a bowel movement at least every 2 to 3 da ys. If you do not have a bowel movement for 3 days, call your doctor or health care professi onal. Your mouth may get dry. Chewing sugarless gum or sucking hard candy, and drinking plenty of water may help. Contact your doctor if the problem does not go away or is severe. NOTE:This sheet is a summary. It may not cover all possible information. If you have questi ons about this medicine, talk to your doctor, pharmacist, or health care provider. Copyright 2019 Elsevier Arteriovenous (AV) Fistula for Dialysis An AV fistula is a connection between an artery and a vein. For this procedure, an AV fistu la is surgically created using an artery and a vein in your arm. (Your healthcare provider w ill let you know if another site is to be used.) When the artery and vein are joined, blood flow increases from the artery into the vein. As a result, the vein gets bigger over time. T he enlarged vein provides easier access to the blood for a treatment for kidney failure (vazquez lysis). This sheet explains the procedure and what to expect. An AV fistula increases blood flow from the artery into the vein. Over time, the vein becom es stronger and enlarged. Preparing for the procedure Prepare as you have been told. In addition: Tell yourhealthcare providerabout all the medicines you take. This includes all over -the-counter and prescription medicines, and street drugs. It also includes herbs, vitamins, and other supplements. You may need to stop taking some or all of them before the procedure . Follow any directions you re given for not eating or drinking before the procedure. Do not allow anyone to draw blood from or take blood pressure on the arm that will have the fistula before the procedure. The day of the procedure The procedure takes about 1 to 2 hours. You ll likely go home the same day. Before the procedure begins: An IV (intravenous) line is put into a vein in the arm or hand not being used for the pr ocedure. This line supplies fluids and medicines. To keep you free of pain during the procedure, you re given general anesthesia. This m edicine puts you into a state like a deep sleep through the procedure. Or a nerve block may be used. This medicine numbs the arm. With it, you may also be given medicine that makes you relaxed and drowsy through the procedure. During the procedure: The skin over your arm may be injected with numbing medicine. One or more small cuts (incisions) are then made through the numbed skin. This depends o n the size of your arm and the depth of the vein in your arm. The vein is attached to the selected artery. Any incisions made are then closed with stitches (sutures), john, surgical glue, or s trips of surgical tape. After the procedure: You ll be asked to keep your arm raised (elevated) as often as possible for at least a week after the procedure. You ll be given medicines to manage pain as needed. Your arm and hand will be checked to make sure blood is flowing through the fistula prop erly. The feeling of blood rushing through the fistula is called a thrill. It is somewhat si milar to the purring of a cat. You ll be taught how to check for this feeling each day to make sure there are no problems with your fistula. You ll also be taught how to care for y our fistula at home. When it s time for you to leave the hospital, have an adult family member or friend re mariella to drive you home. Recovering at home Once at home, follow all of the instructions you ve been given. Be sure to: Take all medicines as directed. Care for your incision as instructed. Check for signs of infection at the incision site (see below). Avoid heavy lifting and strenuous activities as directed. Monitor and care for your fistula as instructed. Do yourhand and arm exercises as instructed. This usually involves squeezing a ball in your hand for a few minutes each hour. Call your healthcare provider if you have any of the following: Fever of 100.4F (38C) or higher Signs of infection at the incision site, such as increased redness or swelling, warmth, worsening pain, bleeding, or bad-smelling drainage You can t feel a thrill (the vibration of blood going through your arm) Pain or numbness in your fingers, hand, or arm Bleeding, redness, or warmth around your fistula Sudden bulging of the fistula (more than usual; a slight bulge is normal) Follow-Up Your healthcare provider will check your fistula within 1 to 2 weeks after the procedure. I t will likely take about 6 to 8 weeks for the fistula to enlarge enough to start dialysis. A fter that, make sure the fistula is checked each time you have dialysis.Your healthcare pr ovidermay also suggest checkups every 6 months. Risks and possible complications include: The fistula not working properly Long wait before the fistula is ready (up to 6 months) Coldness or numbness in the hand (due to blood flowing away from the hand and into the f istula) An unsightly bump under the skin (due to enlargement of the fistula) Prolonged bleeding from the fistula after dialysis Narrowing or weakening of the blood vessels used for the fistula Formation of blood clots in the blood vessels used for the fistula Risks of anesthesia or any other medicines used during the procedure Living with an AV Fistula A problem, such as a narrowing (stricture) of the vein or an infection, can make the fistul a unusable. If this happens, you may need other treatments to repair or make a new fistula. To protect your fistula, follow these and any other guidelines you re given: Check your fistula as often as yourhealthcare providersays. If you can t feel your thrill, let your provider know right away. Make sure your fistula is checked before each dialysis treatment. Don t let anyone draw blood from or take blood pressure on the arm that has the fistul a. Wash your hands often and keep the area around your fistula clean. Don t sleep on the arm that has the fistula. Don t wear tight jewelry or a watch on the arm with your fistula. Protect your fistula from cuts, scrapes, or blows. Date Last Reviewed: 12/01/201619999929-8768 [employer]. [address] [place] [address], [place] [id number]. All righ ts reserved. This information is not intended as a substitute for professional medical care. Always follow your healthcare professional's instructions. documented in this encounter Medications at Time [...] every 6 | | | | | | solution | hours as needed for | | | | | | | Wheezing. | | | | | + + [...] + + + +---------+ + + | aluminum & | Take 15 mLs by mouth | | 0 | | | | magnesium | every 4 hours as | | | | | | hydroxide-simethicon | needed for | | | | | | e (MAALOX PLUS | Indigestion. | | | | | | DOUBLE STRENGTH) | | | | | | | 400-400-40 mg/5 mL | | | | | | | suspension | | | | | | [...] + + + +---------+ + + | calcitriol | Take 1 capsule by | 90 | 3 | 08/18/20 | | | (ROCALTROL) 0.25 mcg | mouth Daily. | capsule | | 19 | | | capsuleIndications: | | | | | | | Stage 5 chronic | | | | | | | kidney disease not | | | | | | | on chronic dialysis | | | | | | | ([facility]), Secondary | | | | | | | hyperparathyroidism | | | | | | | ([facility]) | | | | | | + + + +---------+ + + | CHOLECALCIFEROL PO | Take 1 tablet by | | 0 | | | | | mouth Daily. | | | | | + [...] + + + +---------+ + + | docusate-senna | Take 2 tablets by | | 0 | | | | (SENOKOT-S) 50-8.6 | mouth Daily. | | | | | | mg per tablet | | | | | | + + + +---------+ + + | doxepin (SINEQUAN) | 50 mg. | | 0 | 05/31/20 | | | 10 mg capsule | | | | 19 | | + + + +---------+ + + | ferrous sulfate | Take 65 mg of iron | | 0 | | | | 324 (65 Fe) MG EC | by mouth 4 times | | | | | | tablet | daily with meals. | | | | | + + [...] + + + +---------+ + + | ipratropium | Take 0.5 mg by | | 0 | | | | (ATROVENT) 500 | nebulization 4 | | | | | | mcg/2.5 mL nebulizer | (four) times daily. | | | | | | solution | | | | | | + + + +---------+ + + | LANTUS SOLOSTAR | Inject 25 Units | | 0 | 05/19/20 | | | 100 UNIT/ML | under the skin | | | 19 | | | injection (pen) | nightly. | | | | | + + + +---------+ + + | LINZESS 145 MCG | | | 1 | 05/20/20 | | | capsule | | | | 19 | | + + + +---------+ + + | lisinopril | | | 1 | 06/04/20 | | | (PRINIVIL, ZESTRIL) | | | | 19 | | | 10 mg tablet | | | | | | + + + +---------+ + + | Magnesium 65 MG | Take 1 tablet by | | 0 | | | | TABS | mouth Daily. | | | | | + + + +---------+ + + | ondansetron | | | 0 | 06/18/20 | | | (ZOMICHAELLE ODT) 8 mg | | | | 19 | | | disintegrating | | | | | | | tablet | | | | | | + + + +---------+ + + | ONE TOUCH ULTRA | USE TO TEST BLOOD | | 1 | 06/01/20 | | | TEST strip | SUGAR five times a | | | 19 | | | | day | | | | | + + + +---------+ + + | oxyCODONE | Take 15 mg by mouth | | 0 | | | | (ROXICODONE) 15 mg | every 4 hours. | | | | | | immediate release | | | | | | | tablet | | | | | | + + + +---------+ + + | oxygen | Inhale 4 L into the | | 0 | | | | | lungs as needed (If | | | | | | | napping or having | | | | | | | increased pain | | | | | | | during the day). | | | | | + + + +---------+ + + | VENTOLIN HFA 108 | inhale 2 puffs by | | 0 | 03/03/20 | | | (90 Base) MCG/ACT | mouth every 4 hours | | | 19 | | | inhaler | if needed for | | | | | | | shortness of breath | | | | | + + [...] + +---------+ + + | | Take 1 tablet by | 30 | 0 | 09/10/20 | | | HYDROcodone-acetamin | mouth every 4 hours | tablet | | 19 | 9 | | ophen (NORCO) 5-325 | as needed for Pain. | | | | | | mg per tablet | | | | | | + + + +---------+ + + | sodium bicarbonate | | | 0 | 05/31/20 | | | 650 mg tablet | | | | 19 | 0 | + + + +---------+ + + | torsemide | Take 40 mg by mouth | | 1 | 02/18/20 | | | (DEMADEX) 20 mg | Daily. | | | 19 | 0 | | tablet | | | | | | + + + +---------+ + + documented as of this encounter Progress Notes Leana Pimentel RN - 09/10/2019 4:05 PM PDTDischarge instructions (per AVS) explained and discussed with patient and family (patient's daughter-sona). Discussed precautions post -fistula creation, precautions post-anesthesia, signs and symptoms of surgical site incision , heavy bleeding, incision care, dressing care, and signs and symptoms of blood clots and bl ood clots prevention. Prescription for [place] given and side effects were explained. Patient states that he also takes oxycodone at home; patient and his family were educated about taki ng oxycodone or [place] only and not both. OTC Tylenol intake precautions also discussed. Arabella ent and his family verbalized understanding and agreeable. Opportunity to ask questions give n, all questions were answered. Leana Pimentel RN documented in this encounter Plan of Treatment +--------+---------+ + + + | Date | Type | Specialty | Care Team | Description | +--------+---------+ + + + | 06/05/ | Office | Nephrology | Farrukh Acuna MD | | | 2019 | Visit | | [address] [facility] | | | | | | [address] [place], [place] | | | | | | [address] | | | | | | | | +--------+---------+ + + + documented as of this encounter Procedures + +--------+ + + + | Procedure Name | Priori | Date/Time | Associated Diagnosis | Comments | | | ty | | | | + +--------+ + + + | POC GLUCOSE (NON | Routin | 09/10/2019 | | Results for this | | ORD) | e | 2:12 PM | | procedure are in the | | | | PDT | | results section. | + +--------+ + + + | INSERTION AV FISTULA | | 09/10/2019 | CKD (chronic | | | | | 12:52 PM | kidney disease) | | | | | PDT | stage 5, GFR less | | | | | | than 15 ml/min ([facility]) | | + +--------+ + + + | POC GLUCOSE (NON | Routin | 09/10/2019 | | Results for this | | ORD) | e | 12:13 PM | | procedure are in the | | | | PDT | | results section. | + +--------+ + + + documented in this encounter Results POC Glucose (09/10/2019 2:12 PM PDT) + + + + + + | Component | Value | Ref Range | Performed | Pathologist | | | | | At | Signature | + + + + + + | Glucose, | 161 (H)Comment: Testing | 65 - 99 mg/dL | [facility] | | | POC | performed at [facility];[address] | | LABORATORY | | | | Rossi Mitchell;TRE [place] | | | | | | [id number] | | | | + + + + + + + + | Specimen | + + | | + + + + + + + | Performing | Address | City/State/Zipcode | Phone Number | | Organization | | | | + + + + + | [facility] | [address] | [place] [address] | [phone] | + + + + + POC Glucose (09/10/2019 12:13 PM PDT) + + + + + + | Component | Value | Ref Range | Performed | Pathologist | | | | | At | Signature | + + + + + + | Glucose, | 150 (H)Comment: Testing | 65 - 99 mg/dL | [facility] | | | POC | performed at [facility] | | LABORATORY | | | | [address];[place], [place] | | | | | | [address] | | | | + + + + + + + + | Specimen | + + | | + + + + + + + | Performing | Address | City/State/Zipcode | Phone Number | | Organization | | | | + + + + + | [facility] | [address] | [place] [address] | [phone] | + + + + + documented in this encounter Visit Diagnoses + + | Diagnosis | + + | CKD (chronic kidney disease) stage 5, GFR less than 15 ml/min (HCC) Chronic kidney | | disease, Stage V | + + documented in this encounter Admitting Diagnoses + + | Diagnosis | + + | CKD (chronic kidney disease) stage 5, GFR less than 15 ml/min ([facility]) Chronic kidney | | disease, Stage V | + + documented in this encounter Administered Medications + +--------+ +---------+------+------+ | Medication Order | MAR | Action | Dose | Rate | Site | | | Action | Date | | | | + +--------+ +---------+------+------+ | albuterol 1.25 mg/3 mL | Given | // | 1.25 mg | | | | nebulizer solution 1.25 mg 1.25 | | 19 12:45 | | | | | mg, Nebulization, RT Once, Fri | | PM PDT | | | | | 09/10/19 at 1300, For 1 dose, RT | | | | | | | will administer., Pre-op | | | | | | + +--------+ +---------+------+------+ + +---+ | | | + +---+ | albuterol 2.5 mg/3 mL nebulizer | | | solution 2.5 mg 2.5 mg, | | | Nebulization, ONCE PRN, Wheezing, | | | Starting 09/10/19 at 1401, | | | For 1 dose, Notify anesthesia if | | | patient is wheezing and does not | | | have a history of asthma or COPD | | | or current smoking., | | | Recovery/Phase I | | + +---+ | | | + +---+ + +-------+ +--------+---+---+ | bupivacaine (PF) (MARCAINE) | Given | 09/10/20 | 13 mLs | | | | 0.5% 30 mL with lidocaine 1% 20 | | 19 1:24 | | | | | mL, sodium bicarbonate 1 mEq/mL 5 | | PM PDT | | | | | mL Optesia Mixture PRN, | | | | | | | Starting 09/10/19 at 1324, | | | | | | | Intra-op | | | | | | + +-------+ +--------+---+---+ + +---+ | | | + +---+ | dextrose 50% injection 12.5-25 | | | g 12.5-25 g, Intravenous, EVERY | | | 15 MIN PRN, Low Blood Sugar, For | | | hypoglycemia. Give 12.5g (25ml) | | | IV if blood glucose 50-69 | | | mg/dL. Give 25g (50ml) IV if | | | blood glucose < 50, Starting Fri | | | 09/10/19 at 1401, Give over 2 | | | min. Repeat in 15 min if blood | | | glucose remains < 70 mg/dL. | | | Repeat blood glucose in 30 min | | | once blood glucose > 70., | | | Recovery/Phase I | | + +---+ | | | + +---+ | fentaNYL (PF) injection 25-50 | | | mcg 25-50 mcg, Intravenous, | | | EVERY 5 MIN PRN, Pain, Initial | | | postop urgent pain or escalating | | | pain, Starting 09/10/19 at | | | 1401, For 4 doses, (2 doses | | | maximum for opioid naive, 4 doses | | | maximum for opioid tolerant) | | | First dose must be lowest dose. | | | Use Pasero Sedation Scale. | | | [Opioid tolerant = One week or | | | longer, eyaqwj-wvu-fargo use of | | | at least the following DAILY | | | dose: 60mg oral morphine, 60mg | | | oral hydrocodone, 30mg oral | | | oxycodone, 8mg oral | | | hydromorphone, fentanyl patch | | | 25mcg/hr, or equivalent dose of | | | another opioid], Recovery/Phase I | | + +---+ | | | + +---+ | meperidine (DEMEROL) injection | | | 12.5-25 mg 12.5-25 mg, | | | Intravenous, PRN, Shivering, | | | Starting 09/10/19 at 1401, | | | For 2 doses, May Repeat once in 5 | | | min., Recovery/Phase I | | + +---+ | | | + +---+ | ondansetron (ZOFRAN) injection | | | 4 mg 4 mg, Intravenous, ONCE | | | PRN, Nausea, Starting Fri | | | 09/10/19 at 1401, For 1 dose, | | | Recovery/Phase I | | + +---+ | | | + +---+ | promethazine (PHENERGAN) (IV | | | ONLY) injection 6.25 mg 6.25 mg, | | | Intravenous, EVERY 15 MIN PRN, | | | Nausea, Vomiting, Starting Fri | | | 09/10/19 at 1401, For 4 doses, | | | TAKE PRECAUTIONS WHEN | | | ADMINISTERING Dilute to 10-20mL | | | with NS. Give over 2-3 minutes | | | into large vein. Use ondansetron | | | first if both are ordered., | | | Recovery/Phase I | | + +---+ | | | + +---+ + + + +---+---+---+ | sodium chloride 0.9% (NS) | Continue | 09/10/20 | | | | | infusion at 30 mL/hr, | d by | 19 12:57 | | | | | Intravenous, CONTINUOUS, Starting | Anesthes | PM PDT | | | | | 09/10/19 at 1245, Pre-op | ia | | | | | + + + +---+---+---+ +---------+ +---+ +---+ | New Bag | 09/10/20 | | 30 mL/hr | | | | 19 12:28 | | | | | | PM PDT | | | | +---------+ +---+ +---+ +---+---+ | | | +---+---+ + +-------+ +--------+---+---+ | thrombin (recombinant) | Given | 09/10/20 | 5,000 | | | | (RECOTHROM) solution PRN, | | 19 1:35 | Units | | | | Starting 09/10/19 at 1335, | | PM PDT | | | | | Intra-op | | | | | | + +-------+ +--------+---+---+ +---+---+ | | | +---+---+ documented in this encounter
--- OUTSIDE RECORDS SUMMARY | ~2020-05-08 | XMS | Encounter Summary ---
Demographics + + + | Address | [address] | | | [place] [address] | + + + | Home Phone | | + + + | Preferred Language | Unknown | + + + | Marital Status | | + + + | Cheondoism Affiliation | 1077 | + + + | Race | Unknown | + + + | Ethnic Group | Unknown | + + + Author + + + | Author | [facility] | | | and [place] | + + + | Organization | [facility] | | | [...] Team Providers + +------+ + | Care Bee Raiser Name | Role | Phone | + +------+ + | Rahul Silva MD | PCP | | + +------+ + Reason for Visit + + + | Reason | Comments | + + + | Appointment | cancellation | + + + Encounter Details +--------+ + + + + | Date | Type | Department | Care Team | Description | +--------+ + + + + | 02/23/ | Telephone | [facility] | Jose L Magana, | Appointment | | 2013 | | PULMONARY [address] | MD [address] | (cancellation) | | | | [place], | [place], [place] | | | | | [place] [address] | [address] | | | | | [phone] | | | +--------+ + + + [...] 2020 | Visit | | [address] [facility] | | | | | | [address] [place] | | | | | | [address] | | | | | | | | +--------+---------+ + + + documented as of this encounter Visit Diagnoses Not on filedocumented in this encounter"
--- OUTSIDE RECORDS SUMMARY | ~2020-05-08 | XMS | Encounter Summary ---
Demographics + + + | Address | [address] | | | [place] [address] | + + + | Home Phone | | + + + | Preferred Language | Unknown | + + + | Marital Status | | + + + | Taoist Affiliation | 1077 | + + + | Race | Unknown | + + + | Ethnic Group | Unknown | + + + Author + + + | Author | [facility] | | | and [place] | + + + | Organization | [facility] | | | [...] Team Providers + +------+ + | Care Professor Of Languages Name | Role | Phone | + [...] | | | [address] | [place] [address] | | | | | [place] [address] | | | | | | [phone] | | | +--------+ + + + [...] 2020 | Visit | | [address] [facility] | | | | | | [address] [place] | | | | | | [address] | | | | | | | [...]
--- OUTSIDE RECORDS SUMMARY | ~2020-05-08 | XMS | Encounter Summary ---
Demographics + + + | Address | [address] | | | [place] [address] | + + + | Home Phone [...] Team Providers + +------+ + | Care Wave Solder Offbearer Name | Role | Phone | + +------+ + | Rahul Silva MD | PCP | | + +------+ + Reason for Visit + + + | Reason | Comments | + + + | Labs Only | [facility] 08/24/19 | + + + Encounter Details +--------+ + + + + | Date | Type | Department | Care Team | Description | +--------+ + + + + | 09/17/ | Documentati | [facility] | Oly Alvarenga | Labs Only ([facility] | | 2019 | on | NEPRHOLOGY [place] | V, Medical | 08/24/19) | | | | [address] | Dancing Master | | | | | [address] [place], [place] | | | | | | [address] | | | | | | [phone] | | | +--------+ + + + [...] 2020 | Visit | | [address] [facility] | | | | | | [address] [place], [place] | | | | | | [address] | | | | | | | | +--------+---------+ + + + documented as of this encounter Procedures + +--------+ + + + | Procedure Name | Priori | Date/Time | Associated Diagnosis | Comments | | | ty | | | | + +--------+ + + + | BASIC METABOLIC | Routin | 08/24/2019 | | Results for this | | PANEL | e | | | procedure are in the | | | | | | results section. | + +--------+ + + + documented in this encounter Results Basic Metabolic Panel (08/24/2019) + + + + + + | Component | Value | Ref Range | Performed | Pathologist | | | | | At | Signature | + + + + + + | Na | 140 | 132 - 143 | REFERENCE | | | | | mmol/L | LAB | | | | | | [facility] | | + + + + + + | K | 4.6 | 3.6 - 5.1 | REFERENCE | | | | | mmol/L | LAB | | | | | | [facility] | | + + + + + + | Cl | 99 | 95 - 112 mmol/L | REFERENCE | | | | | | LAB | | | | | | [facility] | | + + + + + + | Carbon | 29 | 19 - 31 | REFERENCE | | | Dioxide, WB | | | LAB | | | | | | [facility] | | + + + + + + | Anion Gap | 17 | 7 - 21 mmol/L | REFERENCE | | | | | | LAB | | | | | | [facility] | | + + + + + + | Glucose | 104 (A) | 70 - 100 mg/dL | REFERENCE | | | | | | LAB | | | | | | [facility] | | + + + + + + | Creatinine | 4.41 (A) | 0.70 - 1.18 | REFERENCE | | | | | mg/dL | LAB | | | | | | [facility] | | + + + + + + | Calcium | 9.1 | 8.5 - 10.3 | REFERENCE | | | | | | LAB | | | | | | [facility] | | + + + + + + | BUN | 49 (A) | 6 - 23 mg/dL | REFERENCE | | | | | | LAB | | | | | | [facility] | | + + + + + + | BUN/Creatin | 11.1 | 6.0 - 28.6 | REFERENCE | | | ine Ratio | | | LAB | | | | | | [facility] | | + + + + + + | Estimated | 13.0 | mL/min/1.73m2 | REFERENCE | | | GFR | | | LAB | | | | | | [facility] | | + + + + + + + + | Specimen | + + | Blood | + + + + + + + | Performing | Address | City/State/Zipcode | Phone Number | | Organization | | | | + + + + + | REFERENCE LAB | [address] [facility] | [place] | [phone] | | [facility] | | [address] | | + + + + + | REFERENCE LAB | [facility] | [place] | [phone] | | [facility] | | [address] | | + + + + + documented in this encounter Visit Diagnoses Not on filedocumented in this encounter"
--- OUTSIDE RECORDS SUMMARY | ~2020-05-08 | XMS | Encounter Summary ---
Demographics + + + | Address | [address] | | | [place] [address] | + + + | Home Phone [...] Team Providers + +------+ + | Care Infant Lead Teacher Name | Role | Phone | + +------+ + | Mehrdad Bergamn | PCP | | + +------+ + [...] | | | [address] | [place] [address] | | | | | [place] [address] | | | | | | [phone] | | | +--------+ + + + [...] 2019 | Visit | | [address] [place] | | | | | | [address] [place] | | | | | | [address] | | | | | | | | +--------+---------+ + + + documented as of this encounter Procedures + +--------+ + + + | Procedure Name | Priori | Date/Time | Associated Diagnosis | Comments | | | ty | | | | + +--------+ + + + | XR CHEST AP PORTABLE | Routin | 11/06/2016 | | Results for this | | | e | 12:00 AM | | procedure are in the | | | | PST | | results section. | + +--------+ + + + documented in this encounter Results XR Chest AP Portable (11/06/2016 12:00 AM PST) + + | Specimen [...]
--- OUTSIDE RECORDS SUMMARY | ~2020-05-08 | XMS | Encounter Summary ---
Demographics + + + | Address | [address] | | | [place] [address] | + + + | Home Phone | | + + + | Preferred Language | Unknown | + + + | Marital Status | | + + + | Cheondoism Affiliation | 1077 | + + + | Race | Unknown | + + + | Ethnic Group | Unknown | + + + Author + + + | Author | [facility] | | | and [place] | + + + | Organization | [facility] | | | [...] Providers + +------+ + | Care Home Theater Installer Name | Role | Phone | [...] | Transaction, | | | | | [place], [place] | Provider Unknown | | | | | [address] | | | | | | [phone] | | | +--------+ + + + [...] 2020 | Visit | | [address] [facility] | | | | | | [address] [place] [address] | | | | | | [address] | | | | | | | [...]
--- OUTSIDE RECORDS SUMMARY | ~2020-05-08 | XMS | Encounter Summary ---
Demographics + + + | Address | [address] | | | [place] [address] | + + + | Home Phone | | + + + | Preferred Language | Unknown | + + + | Marital Status | | + + + | Orthodox Affiliation | 1077 | + + + | Race | Unknown | + + + | Ethnic Group | Unknown | + + + Author + + + | Author | [facility] | | | and [place] | + + + | Organization | [facility] | | | [...] Team Providers + +------+ + | Care Parachute Mender Name | Role | Phone | + +------+ + | Rahul Silva MD | PCP | | + +------+ + Encounter Details +--------+ + + + + | Date | Type | Department | Care Team | Description | +--------+ + + + + | 02/24/ | Orders Only | [facility] | Conversion | | | 2016 | | NEPHROLOGY [place] | Transaction, | | | | | [address] | Provider Unknown | | | | | [address] [place] | | | | | | [address] | (Fax) | | | | | [phone] | | | +--------+ + + + [...] | Visit | | [address] [facility] | | | | | | [facility] | | | | | | [address] | | | | | | | | +--------+---------+ + + + documented as of this encounter Procedures + +--------+ + + + | Procedure Name | Priori | Date/Time | Associated Diagnosis | Comments | | | ty | | | | + +--------+ + + + | EXTERNAL LAB: CBC | Routin | 02/24/2017 | | Results for this | | | e | 8:07 AM | | procedure are in the | | | | PDT | | results section. | + +--------+ + + + | URINALYSIS, | Routin | 02/24/2017 | | Results for this | | MICROSCOPIC ONLY | e | 8:07 AM | | procedure are in the | | | | PDT | | results section. | + +--------+ + + + | PROTEIN/CREATININE | Routin | 02/24/2017 | | Results for this | | RATIO, URINE | e | 8:07 AM | | procedure are in the | | | | PDT | | results section. | + +--------+ + + + | URIC ACID | Routin | 02/24/2017 | | Results for this | | | e | 8:07 AM | | procedure are in the | | | | PDT | | results section. | + +--------+ + + + | PARATHYROID HORMONE, | Routin | 02/24/2017 | | Results for this | | INTACT | e | 8:07 AM | | procedure are in the | | | | PDT | | results section. | + +--------+ + + + | MAGNESIUM | Routin | 02/24/2017 | | Results for this | | | e | 8:07 AM | | procedure are in the | | | | PDT | | results section. | + +--------+ + + + | RENAL FUNCTION PANEL | Routin | 02/24/2017 | | Results for this | | | e | 8:07 AM | | procedure are in the | | | | PDT | | results section. | + +--------+ + + + documented in this encounter Results Protein/Creatinine Ratio, Urine (02/24/2017 8:07 AM PDT) + + + + + + | Component | Value | Ref Range | Performed | Pathologist | | | | | At | Signature | + + + + + + | Protein/Cre | 460.9 (A) | 0 - 150 | EXTERNAL [...] + +---------+ + + Urinalysis, Microscopic Only (02/24/2017 8:07 AM PDT) + + + + + [...] - 1.030 | EXTERNAL | | | [place], | | | LAB | | | [...] + + + | Protein, | Comment: 75 | | EXTERNAL | | | Urine [...] + + + | Glucose, | Comment: 50 | | EXTERNAL | | | Urine [...] + +---------+ + + External Lab: CBC (02/24/2017 8:07 AM PDT) + + + + + + | Component | Value | Ref Range | Performed | Pathologist | | | | | At | Signature | + + + + + + | WBC | 12.2 (A) | 4.5 - 11.0 10 | EXTERNAL | | | | | | LAB | | + + + + + + | Red Blood | 3.97 (A) | 4.3 - 5.7 10 | EXTERNAL | | | Cells | | | LAB | | | Counted | | | | | + + + + + + | Hemoglobin | 11.0 (A) | 13.5 - 18.0 | EXTERNAL | | | | | g/dL | LAB | | + + + + + + | Hematocrit, | 33.8 (A) | 41 - 50 % | EXTERNAL | | | POC | | | LAB | | + + + + + + | MCV | 85.0 | 81 - 99 fL | EXTERNAL [...] + + + + | Platelet | 270 | 140 - 440 K/ L | EXTERNAL | | | Count | | | LAB | | | Plasma | | | | | + + + + + + | RDW-CV | 15.5 (A) | 10.5 - 15.0 % | [...] | + +---------+ + + Uric Acid (02/24/2017 8:07 AM PDT) + +---------+ + + + | Component | Value | Ref Range | Performed | Pathologist | | | | | At | Signature | + +---------+ + + + | Uric Acid | 9.0 (A) | 4.4 - 7.6 | EXTERNAL [...] + +---------+ + + Parathyroid Hormone, Intact (02/24/2017 8:07 AM PDT) + + + + + + | Component | Value | Ref Range | Performed | Pathologist | | | | | At | Signature | + + + + + + | PTH INTACT | 124.2 (A) | 15 - 65 pg/mL | [...] | | + +---------+ + + Magnesium (02/24/2017 8:07 AM PDT) + +-------+ + + + | Component | Value | Ref Range | Performed | Pathologist | | | | | At | Signature | + +-------+ + + + | Magnesium | 1.7 | 1.7 - 2.5 mg/dL | EXTERNAL [...] + +---------+ + + Renal Function Panel (02/24/2017 8:07 AM PDT) + + + + + + | Component | Value | Ref Range | Performed | Pathologist | | | | | At | Signature | + + + + + + | Glucose, | 127 (A) | 70 - 100 mg/dL | EXTERNAL | | | Fasting | | | LAB | | + + + + + + | BUN | 50 (A) | 6 - 23 mg/dL | EXTERNAL | | | | | | LAB | | + + + + + + | Creatinine | 2.28 (A) | 0.70 - 1.18 | EXTERNAL [...] + + + + | CO2 | 18 (A) | 19 - 31 mmol/L | EXTERNAL | | | | | | LAB | | + + + + + + | Anion Gap | 19.4 | 7 - 21 mmol/L | EXTERNAL | | | | | | LAB | | + + + + + + | eGFR if not | | | EXTERNAL | | | | | | LAB | | | [place] | | | | | + + + + + + | Phosphorus, | 4.1 | 2.5 - 5.0 | EXTERNAL | | | Inorganic | | | LAB | | + + + + + + | BUN/Creatin | 21.9 | 6.0 - 28.6 | EXTERNAL | [...]
--- OUTSIDE RECORDS SUMMARY | ~2020-05-08 | XMS | Encounter Summary ---
Demographics + + + | Address | [address] | | | [place] [address] | + + + | Home Phone | | + + + | Preferred Language | Unknown | + + + | Marital Status | | + + + | Faith Affiliation | 1077 | + + + | Race | Unknown | + + + | Ethnic Group | Unknown | + + + Author + + + | Author | [facility] | | | and [place] | + + + | Organization | [facility] | | | [...] Team Providers + +------+ + | Care Management Professor Name | Role | Phone | [...] | | | hip | [address] | | | | | | fracture, | [place] | | | | | | initial | [place], [place] | | | | | | encounter | [address] | | | | | | ([facility]) | Phone: | | | | | | Status post | [phone] | | | | | | above knee | Fax: | | | | | | amputation | [phone] | | | | | | of [...] | | | | | | | ([facility]) | | | | | | | | | | | | | | | | | +--------+--------+ + + + + Encounter Details +--------+ + + + + | Date | Type | Department | Care Team | Description | +--------+ + + + + | 08/03/ | Hospital | [facility] | Jose Andrade | Laceration of left | | 2016 - | Encounter | MED [facility] SUR[facility] | MD Mehrdad [address] | ear, initial | | | | [address] [place] | [address] [place] | encounter (Primary | | 08/05/ | | [place] [address] | [place] [address] | Dx); Closed left hip | | 2016 | | [phone] | [phone] | fracture, initial | | | | | | encounter ([facility]); | | | | | Guillermo Atkins, | Fall, initial | | | | | DO [address] | encounter; Acute | | | | | [place] [address] [place], | pain; Hyperkalemia; | | | | | [place] [address] | CKD (chronic kidney | | | | | [phone] | disease), | | | | | [...] | | | | | | encounter ([facility]); | | | | | | PAOLO on CPAP; Status | | | | | | post fall; Status | | | | | | 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 | | | | | | lower extremity | | | | | | ([facility]); Phantom limb | | | | | | pain ([facility]) | +--------+ + + + [...] Bolivar MD - 08/05/2016 1:07 PM PDT [facility] DISCHARGE SUMMARY Pt. Name/Age/: Kavon Andujar 76 y.o. 1940 Date of Admission: 08/03/2016 Date of Discharge: 08/05/2016 Admitting Physician: Guillermo Atkins DO Primary Care Provider: Rahul Silva MD Discharging Physician: Petey Bolivar MD DISCHARGE [...] mg by mouth nightly. aka: LIPITOR Cholecalciferol 76676 units Caps Take 50,000 Units by mouth [...] DISCHARGE INSTRUCTIONS: Follow-up Information Follow up with Rahul Silva MD. Specialty: Family Medicine Why: call for appointment in 7-10 days Contact information: [address] [place] [id number] PENDING RESULTS: HOSPITAL COURSE: Please refer to the H&P for full details. 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 The patient was assessed by Dr. Thaddeus Robison and not felt to b e [...] his potassium to 5.6 on admission wi lisinopril 40 mg daily being given as of diabetes. lisinopril was held with his potassium falling to 4.9. Discharge patient was inadvertently placed on his lisinopril and his daugh shirley will be contacted in the a.m. to discontinue this until follow-up with Dr. Silva. The patient was discharged on the second hospital day plan follow-up with Dr. tobar for sut ure removal and recommendation with follow-up with his PCP Dr. Silva in 7-10 days. PHYSICAL EXAM: Temp: 36.7 [...] signed by: Petey Bolivar MD, 08/05/2016 13:07 [facility] Portions of this chart may have been created with [employer] voice recognition software. Occasi onal wrong-word or sound-alike substitutions may have occurred due to the inherent vanegas itations of voice recognition software. Please read the chart carefully and recognize, using context, where these substitutions have occurred documented in this encounter Discharge Instructions Instructions Maritza Devries RN - 08/05/2016Please call Dr. Tobar at [phone] for an y questions or concerns regarding [...] 0 | | | | (VITAMIN D-3) [address] | mouth Every 3 | | | [...] might be differ ent from the original. [facility] Hospitalist Progress Note Kavon Andujar is a 76 y.o. male SUBJECTIVE: Patient [...] Clear Clear PH UA 5.0 5.0-8.0 Specific [place] 1.015 1.001-1.030 PROTEIN UA 100 mg/dL (A) [...] as outlined above. Sonu Michel 08/04/2016 11:33 [facility] Yuriy Farrell RRT - 08/04/2016 8:42 AM PDTFormatting of this note might be different from the origina l. 08/04/16 0840 Noninvasive/Cpap Mode Of Delivery BiPAP;auto titrating Equipment Type pts CPAP (PS min 3, PS max 5) IPAP (IPAP MAX 24) EPAP (EPAP min 13) Steven George MD - 08/03/2016 10:43 PM PDTdictated 10:5 1 PM PDTdocumented in this encounter Plan of Treatment +--------+---------+ + + + | Date | Type | Specialty | Care Team | Description | +--------+---------+ + + + | 06/05/ | Office | Nephrology | Farrukh Acuna MD | | | 2020 | Visit | | [address] [facility] | | | | | | [address] [place], [place] | | | | | | [address] | | | | | | | [...] until | | | | | encounter ([facility]) | 08/04/2016 | | | | | Status post above | | | | | | knee amputation of | | | | | | left lower extremity | | | | | | ([facility]) | | + +------+--------+ + + | DME: Walker | DME | Routin | Closed left hip | Ordered: 08/05/2016 | | | | e | fracture, initial | | | | | | encounter ([facility]) | | | | | | Status post above | | | | | | knee amputation of | | | | | | left lower extremity | | | | | | ([facility]) | | + +------+--------+ + [...] | | | POC | | | [facility] | | | [...] [address] | [place] | [phone] | | [facility] | | [address] | | | - LABORATORY | | [...] | | | | | mmol/L | [facility] | | | | [...] (H) | 7 - 18 mg/dL | [facility] | | | | | | [facility] | | | | | | MEDICAL | | | | | | CENTER - | | | | | | LABORATORY | | + + + + + + | Creatinine | 1.80 (H) | 0.60 - 1.30 | [facility] | | | | | mg/dL | [facility] | | | | | | MEDICAL | | | | | | CENTER - | | | | | | LABORATORY | | + + + + + + | eGFR if not | 37 (L)Comment: | >=60 | [facility] | | | | GLOMERULAR FILTRATION | mL/min/1.73m2 | [facility] | | | [place] | RATE,ESTIMATED | | MEDICAL | | | | mL/min/1.96r8Hkte than | | CENTER - | | [...] | | | | mg/dL | [facility] | | | | | | MEDICAL | | | | | | CENTER - | | | | | | LABORATORY | | + + + + + + | Albumin | 2.8 (L) | 3.2 - 5.0 g/dL | [facility] | | | | | | [facility] | | | | | | MEDICAL | | | | | | CENTER - | | | | | | LABORATORY | | + + + + + + | Bilirubin | 0.7 | 0.1 - 1.5 mg/dL | [facility] | | | Total | | | [facility] | | [...] [address] | [place] | [phone] | | [facility] | | [address] | | | - LABORATORY | | | | + + + + + CBC with Differential (08/05/2016 6:44 AM PDT) + + + + + + | Component | Value | Ref Range | Performed | Pathologist | | | | | At | Signature | + + + + + + | WBC | 10.9 | 4.0 - 11.0 K/uL | [facility] | | | | | | [facility] | | | | | | MEDICAL | | | | | | CENTER - | | | | | | LABORATORY | | + + + + + + | RBC | 3.18 (L) | 4.30 - 5.70 | [facility] | | | | | M/uL | [facility] | [...] | Monocytes | | K/uL | [facility] | | | | | | MEDICAL | | | | | | CENTER - | | | | | | LABORATORY | | + + + + + + | Absolute | 0.80 (H) | 0.00 - 0.40 | [facility] | | | Eosinophils | | K/uL | [facility] | | | | [...] [address] | [place] | [phone] | | [facility] | | [address] | | | - LABORATORY | | | | + + + + + Phosphorus (08/05/2016 6:44 AM PDT) + +-------+ + + + | Component | Value | Ref Range | Performed | Pathologist | | | | | At | Signature | + +-------+ + + + | Phosphorus | 4.2 | 2.5 - 4.6 mg/dL | [facility] | | | | | | ST. [...] [address] | [place] | [phone] | | [facility] | | [address] | | | - LABORATORY | | | | + + + + + Magnesium (08/05/2016 6:44 AM PDT) + +---------+ + + + | Component | Value | Ref Range | Performed | Pathologist | | | | | At | Signature | + +---------+ + + + | Magnesium | 2.7 (H) | 1.8 - 2.5 mg/dL | [facility] | | | | [...] + | [address] [facility] | [address] | [place] | [phone] | | [facility] | | [address] | | | - LABORATORY | | | | + + + + + POC Glucose (08/04/2016 9:18 PM PDT) + +---------+ + + + | Component | Value | Ref Range | Performed | Pathologist | | | | | At | Signature | + +---------+ + + + | Glucose, | 182 (H) | 70 - 150 mg/dL | [facility] | | | POC | | | [...] | + + + + + | [facility] [facility] | [address] | [place] | [phone] | | [facility] | | [address] | | | - LABORATORY | | | | + + + + + POC Glucose (08/04/2016 5:30 PM PDT) + +---------+ + + + | Component | Value | Ref Range | Performed | Pathologist | | | | | At | Signature | + +---------+ + + + | Glucose, | 174 (H) | 70 - 150 mg/dL | [facility] | | | POC | | | [...] [address] | [place] | [phone] | | [facility] | | [address] | | | - LABORATORY | | [...] | | POC | | | [facility] | | [...] + | [facility] | [address] | [place] | [phone] | | [facility] | | [address] | | | - LABORATORY | | [...] | | Time | | seconds | [facility] | | | | [...] | + + + + + | [facility] [facility] | [address] | [place] | [phone] | | [facility] | | [address] | | | - LABORATORY | | | | + + + + + Magnesium (08/04/2016 5:32 AM PDT) + +---------+ + + + | Component | Value | Ref Range | Performed | Pathologist | | | | | At | Signature | + +---------+ + + + | Magnesium | 2.9 (H) | 1.8 - 2.5 mg/dL | [facility] | | | | [...] + | [facility] | [address] | [place] | [phone] | | [facility] | | [address] | | | - LABORATORY | | | | + + + + + CBC with Differential (08/04/2016 5:32 AM PDT) + + + + + + | Component | Value | Ref Range | Performed | Pathologist | | | | | At | Signature | + + + + + + | WBC | 9.3 | 4.0 - 11.0 K/uL | [facility] | | | | | | [facility] | | | | | | MEDICAL | | | | | | CENTER - | | | | | | LABORATORY | | + + + + + + | RBC | 3.19 (L) | 4.30 - 5.70 | [facility] | | | | | M/uL | [facility] | [...] | Lymphocytes | | K/uL | [facility] | | | | | | MEDICAL [...] + + | [address] | [address] | [place] | [phone] | | [facility] | | [address] | | | - LABORATORY | | [...] 7 | 3 - 16 mmol/L | [facility] | | | | | | [facility] | | | | | | MEDICAL | | | | | | CENTER - | | | | | | LABORATORY | | + + + + + + | Glucose | 162 (H) | 70 - 109 mg/dL | [facility] | | | | [...] mL/min/1.73m2 | [facility] | | | [place] | RATE,ESTIMATED | | MEDICAL | | | | mL/min/1.13m8Ldue than | | CENTER - | | [...] | | ine Ratio | | | [facility] | | [...] | + + + + + | [facility] | [address] | [place] | [phone] | | [facility] | | [address] | | | - LABORATORY | | [...] Urine | | Yellow, Straw | [facility] | | | | | | MEDICAL | | | | | | CENTER - | | | | | | LABORATORY | | + + + + + + | Clarity | Clear | Clear | [facility] | | | | | [...] - 1.030 | [facility] | | | [place], | | | [facility] | | [...] | | Epithelial | | | [facility] | | | Cells, | | | [...] | | Comment | Indicated | | [facility] | | | [...] + + | [facility] | [address] | [place] | [phone] | | [facility] | | [address] | | | - LABORATORY | | [...] | | | | AYAH RON MD ([id number]) | | | | | | on [...] + + + + | WBC | 13.6 (H) | 4.0 - 11.0 K/uL | [facility] | | | | | | [facility] | | | | | | MEDICAL | | | | | | CENTER - | | | | | | LABORATORY | | + + + + + + | RBC | 3.65 (L) | 4.30 - 5.70 | [facility] | | | | | M/uL | [facility] | | | | [...] | Basophils | | K/uL | [facility] | | | | | | MEDICAL [...] [address] | [place] | [phone] | | [facility] | | [address] | | | - LABORATORY | | [...] [address] | [place] | [phone] | | [facility] | | [address] | | | - LABORATORY | | [...] | + + + + + | [facility] [facility] | [address] | [place] | [phone] | | [facility] | | [address] | | | - LABORATORY | | [...] [address] | [place] | [phone] | | [facility] | | [address] | | | - LABORATORY | | [...] [address] | [place] | [phone] | | [facility] | | [address] | | | - LABORATORY | | [...] 2.03 (H) | 0.60 - 1.30 | [facility] | | | | | mg/dL | [...] mL/min/1.73m2 | [facility] | | | [place] | RATE,ESTIMATED | | MEDICAL | | | | mL/min/1.16n0Gvdl than | | CENTER - | | [...] ST. | [address] | [place] | [phone] | | [facility] | | [address] | | | - LABORATORY | | [...] (HCC) Phantom limb (syndrome) | + + | Stage 5 chronic kidney disease not on chronic dialysis (HCC) | + + | Type 2 diabetes mellitus with diabetic nephropathy, with long-term current use of | | insulin (HCC) | + + documented in this encounter [...] | | | | | | | 3714-8118 Use NIGHT DOSE for | | | | | | | doses scheduled: HS, 3AM, | | | | | | | Nighttime 0626-1936, | | | | | | + [...] | +---+---+ + +-------+ +---------+---+ + | dkijhvr-fzoksfupfp-bztjyzkcj | Given | 08/03/20 | 0.5 mLs [...]
--- OUTSIDE RECORDS SUMMARY | ~2020-05-08 | XMS | Encounter Summary ---
Demographics + + + | Address | [address] | | | [place] [address] | + + + | Home Phone [...] Team Providers + +------+ + | Care Vegetable Harvest Machine Operator Name | Role | Phone [...] [address] | | | | | [place], [place] | [place], [place] | | | | | [address] | [address] | | | | | [phone] | [phone] | | | | | | | [...] | | | | | | [address] [facility] | | | | | | [address] | | | | | | | | +--------+---------+ + + + documented as of this encounter Procedures + +--------+ + + + | Procedure Name | Priori | Date/Time | Associated Diagnosis | Comments | | | ty | | | | + +--------+ + + + | PHOSPHORUS | Routin | 11/09/2016 | | Results for this | | | e | 4:37 AM | | procedure are in the | | | | PST | | results section. | + +--------+ + + + documented in this encounter Results Phosphorus (11/09/2016 4:37 AM PST) + +-------+ + + + | Component | Value | Ref Range | Performed | Pathologist | | | | | At | Signature | + +-------+ + + + | PHOSPHORUS | 4.7 | 2.3 - 4.8 mg/dL | EXTERNAL [...]
--- OUTSIDE RECORDS SUMMARY | ~2020-05-08 | XMS | Encounter Summary ---
Demographics + + + | Address | [address] | | | [place] [address] | + + + | Home Phone | | + + + | Preferred Language | Unknown | + + + | Marital Status | | + + + | Adventism Affiliation | 1077 | + + + | Race | Unknown | + + + | Ethnic Group | Unknown | + + + Author + + + | Author | [facility] | | | and [place] | + + + | Organization | [facility] | | [...] Providers + +------+ + | Care Automotive Technology Instructor Name | Role | Phone | + +------+ + PCP | Unavailable | + +------+ + Encounter Details +--------+ + + + + | Date | Type | Department | Care Team | Description | +--------+ + + + + | 05/22/ | [facility] | [facility] | Nelson Lutz MD | | | 1998 | Encounter | MED CTR GENERIC OP | [address], [place] | | | | | CONV DEPT [address] | [address] [place] | | | | | [place], | [address] | | | | | [place] [address] | | | | | | [phone] | | | +--------+ + + + [...] 2020 | Visit | | [address] [facility] | | | | | | [address] [place] | | | | | | [address] | | | | | | | | +--------+---------+ + + + documented as of this encounter Visit Diagnoses Not on filedocumented in this encounter"
--- OUTSIDE RECORDS SUMMARY | ~2020-05-08 | XMS | Encounter Summary ---
Demographics + + + | Address | [address] | | | [place] [address] | + + + | Home Phone | | + + + | Preferred Language | Unknown | + + + | Marital Status | | + + + | Amish Affiliation | 1077 | + + + | Race | Unknown | + + + | Ethnic Group | Unknown | + + + Author + + + | Author | [facility] | | | and [place] | + + + | Organization | [facility] | | | [...] Team Providers + +------+ + | Care Lithographic Proofer Name | Role | Phone | + [...] | | | [address] | [place] [address] | | | | | [place] [address] | | | | | | [phone] | | | +--------+ + + + [...] 2020 | Visit | | [address] [facility] | | | | | | [address] [place] | | | | | | [address] | | | | | | | | +--------+---------+ + + + documented as of this encounter Procedures + +--------+ + + + | Procedure Name | Priori | Date/Time | Associated Diagnosis | Comments | | | ty | | | | + +--------+ + + + | XR CHEST 2 VIEWS | Routin | 07/29/2014 | | Results for this | | | e | 12:00 AM | | procedure are in the | | | | PDT | | results section. | + +--------+ + + + documented in this encounter Results XR Chest 2 Vws (07/29/2014 12:00 AM PDT) + + | Specimen [...]
--- OUTSIDE RECORDS SUMMARY | ~2020-05-08 | XMS | Encounter Summary ---
Demographics + + + | Address | [address] | | | [place] [address] | + + + | Home Phone | | + + + | Preferred Language | Unknown | + + + | Marital Status | | + + + | Mu-Ism Affiliation | 1077 | + + + | Race | Unknown | + + + | Ethnic Group | Unknown | + + + Author + + + | Author | [facility] | | | and [place] | + + + | Organization | [facility] | | | [...] Team Providers + +------+ + | Care Geochemical Manager Name | Role | Phone | + +------+ + | Rahul Silva MD | PCP | | + +------+ + Reason for Visit +--------+ + | Reason | Comments | +--------+ + | Other | | +--------+ + Encounter Details +--------+ + + + + | Date | Type | Department | Care Team | Description | +--------+ + + + + | 10/06/ | Telephone | [facility] | Farrukh Acuna MD | Other | | 2019 | | NEPHROLOGY [place] | [address] [place] | | | | | [address] [place] | [address] [place], [place] | | | | | [address] [place], [place] | [address] | | | | | [address] | | | | | | [phone] | | | +--------+ + + + [...] Visit | | [address] [facility] | | | | | | [address] [place], [place] | | | | | | [address] | | | | | | | | +--------+---------+ + + + documented as of this encounter Visit Diagnoses Not on filedocumented in this encounter"
--- OUTSIDE RECORDS SUMMARY | ~2020-05-08 | XMS | Encounter Summary ---
Demographics + + + | Address | [address] | | | [place] [address] | + + + | Home Phone [...] + + + + + | Darci Andujra | [place] | [place] | | | | | [address] | | + + + + + Care Team Providers + +------+ + | Care Special Events Manager Name | Role | Phone | + +------+ + PCP | Unavailable | + +------+ + Encounter Details +--------+ + + + + | Date | Type | Department | Care Team | Description | +--------+ + + + + | 12/22/ | Transcribed | [facility] at | Dictation, Other | Transcribed | | 1997 | | [place] [address] | | | | | | [address] | | | | | | Ronaldo Vyas | | | | | | [address] | | | | | | [place], [place] | | | | | | [address] | | | | | | [phone] | | | +--------+ + + + [...] as of this encounter Progress Notes Interface, Ctc Operator In - 01/03/2007 5:08 AM PST [address] [address] Department of Orthopaedics, [facility] OP19 December 21, 1997 Jerry Smiley M.D. [address] [place] [id number] RE:Kavon Andujar MR#:[id number] Smiley: Thank you very much for referring Mr. Andujar to me for an orthopaedic consultation. He was seen and evaluated in my clinic, and a copy of my assessment is enclosed for your review. As noted, I do not feel that orthopaedic surgical intervention is warranted at this time. I have suggested too the patient that he return to Dr. Robert Carlson with the updated information available, and I would defer to Dr. Carlson's opinion and recommendations. Again, thank you for the referral. I would by happy to see Mr. Andujar again at any time that you or Dr. Carlson might like. Sincerely, Eric Mcclure M.D. Product Builder, Department of Orthopaedics and Rehabilitation AY/egl A documented in this encounter Plan of Treatment Not on filedocumented as of this encounter Visit Diagnoses Not on filedocumented in this encounter"
--- OUTSIDE RECORDS SUMMARY | ~2020-05-08 | XMS | Encounter Summary ---
Demographics + + + | Address | [address] | | | [place] [address] | + + + | Home Phone [...] Team Providers + +------+ + | Care Residential Program Worker Name | Role | Phone | + +------+ + | Rahul Silva MD | PCP | | + +------+ + Encounter Details +--------+ + + + + | Date | Type | Department | Care Team | Description | +--------+ + + + + | 06/23/ | Orders Only | [facility] | Farrukh Acuna MD | | | 2018 | | NEPHROLOGY [place] | [address] [place] | | | | | [address] [place] | [address] [place], [place] | | | | | [address] [place], [place] | [address] | | | | | [address] | | | | | | [phone] | | | +--------+ + + + [...] 2020 | Visit | | [address] [facility] | | | | | | [address] [place] | | | | | | [address] | | | | | | | | +--------+---------+ + + + documented as of this encounter Procedures + +--------+ + + + | Procedure Name | Priori | Date/Time | Associated Diagnosis | Comments | | | ty | | | | + +--------+ + + + | BASIC METABOLIC | Routin | 06/23/2018 | | Results for this | | PANEL | e | 4:44 PM | | procedure are in the | | | | PDT | | results section. | + +--------+ + + + documented in this encounter Results Basic Metabolic Panel (06/23/2018 4:44 PM PDT) + + + + + + | Component | Value | Ref Range | Performed | Pathologist | | | | | At | Signature | + + + + + + | Glucose, | 115 (A) | 70 - 100 mg/dL | EXTERNAL | | | Fasting | | | LAB | | + + + + + + | BUN | 46 (A) | 6 - 23 mg/dL | EXTERNAL | | | | | | LAB | | + + + + + + | Creatinine | 3.55 (A) | 0.7 - 1.18 | EXTERNAL | | | | | mg/dL | LAB | | + + + + + + | BUN/Creatin | 13 | 6.0 - 28.6 | EXTERNAL | | | ine Ratio | | | LAB | | + + + + + + | Calcium | 7.6 (A) | 8.5 - 10.3 | EXTERNAL | | | | | mg/dL | LAB | | + + + + + + | Na | 139 | 132 - 143 | EXTERNAL | | | | | mmol/L | LAB | | + + + + + + | K | 4.5 | 3.6 - 5.1 | EXTERNAL | [...] + + + | Anion Gap | 19.5 | 7 - 21 mmol/L | EXTERNAL | | | | | | LAB | | + + + + + + | Estimated | 17 (A) | 60 mg/dL | EXTERNAL | [...]
--- OUTSIDE RECORDS SUMMARY | ~2020-05-08 | XMS | Encounter Summary ---
Demographics + + + | Address | [address] | | | [place] [address] | + + + | Home Phone | | + + + | Preferred Language | Unknown | + + + | Marital Status | | + + + | Mu-Ism Affiliation | 1077 | + + + | Race | Unknown | + + + | Ethnic Group | Unknown | + + + Author + + + | Author | [facility] | | | and [place] | + + + | Organization | [facility] | | | and [...] Providers + +------+ + | Care Executive Office Manager Name | Role | Phone | + +------+ + | Rahul Silva MD | PCP | | + +------+ + Encounter Details +--------+ + + + + | Date | Type | Department | Care Team | Description | +--------+ + + + + | 07/27/ | Orders Only | [facility] | Farrukh Acuna MD | Chronic kidney | | 2019 | | NEPHROLOGY [place] | [address] [place] | disease, stage IV | | | | [address] [place] | [address] [place], [place] | (severe) (HCC); | | | | [address] [place], [place] | [address] | Chronic kidney | | | | [address] | | disease, stage IV | | | | [phone] | | (severe) (HCC); | | | | | | Family history of | | | | | | ischemic heart | | | | | | disease and other | | | | | | diseases of the | | | | | | circulatory system; | | | | | | Secondary | | | | | | hyperparathyroidism | | | | | | of renal origin | | | | | | (HCC); Persistent | | | | | | [...] 2020 | Visit | | [address] [facility] | | | | | | [address] [place] | | | | | | [address] | | | | | | | [...] | e | disease, stage IV | 08/01/2019, Expires: | | | | | (severe) (HCC) | 05/31/2020 | | | | | Chronic kidney | | | | | | disease, stage IV | | | | | | (severe) (HCC) | | | | | | Family history of | | | | | | ischemic heart | | | | | | disease and other | | | | | | diseases of the | | | | | | circulatory system | | | | | | Secondary | | | | | | hyperparathyroidism | | | | | | of renal origin | | | | | | (HCC) Persistent | | | | | | proteinuria | | + +------+--------+ + + documented as of this encounter Visit Diagnoses + + | Diagnosis | + + | Chronic kidney disease, stage IV (severe) (HCC) Chronic kidney disease, Stage IV | | (severe) | + + | Family history of ischemic heart disease and other diseases of the circulatory system | + + | Secondary hyperparathyroidism of renal origin (HCC) Secondary hyperparathyroidism (of | | renal origin) | + + | Persistent proteinuria Proteinuria | + + documented in this encounter"
--- OUTSIDE RECORDS SUMMARY | ~2020-05-08 | XMS | Encounter Summary ---
Demographics + + + | Address | [address] | | | [place] [address] | + + + | Home Phone [...] Team Providers + +------+ + | Care Rubber Mixer Name | Role | Phone | [...] | | | | stage renal | [address] | | | | | | disease) | [place] | | | | | | ([facility]) | [place] | | | | | | Procedures | [address] | | | | | | VAS Arm | Phone: | | | | | | Bilateral | [phone] | | | | | | Mapping For | Fax: | | | | | | Dialysis | [phone] | | +--------+--------+ + + + + Encounter Details +--------+ + + + + | Date | Type | Department | Care Team | Description | +--------+ + + + + | 08/20/ | Hospital | [facility] | Trisha Conner, DNP | 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 | VASCULAR SURGERY | [address] | renal disease) ([facility]) | | | | ULTRASOUND [address] | [place] | | | | | [address] [place] | [address] | | | | | [place] | | | | | | [address] | | | | | | [phone] | | | +--------+ + + + [...] + + documented as of this encounter Medications at Time of Discharge [...] + + + +---------+ + + | ARABELLATUS CALABRESE | Inject 25 Units | | 0 [...] | | | (LIPITOR) 80 MG | daily. | | | | 9 | | tablet | | | | | | + + + +---------+ + + | gabapentin | Take 400 mg by mouth | | 0 | | | | (NEURONTIN) 400 mg | as needed. | | | | 9 | | capsule | | | | | | + + + +---------+ + + | predniSONE | take 2 tablets by | | 0 | 03/03/20 | | | (DELTASONE) 20 mg | mouth once daily for | | | 19 | 9 | | tablet | 4 days | | | | | + + [...] [place] | | | | | | [address] | | | | | | | [...] + + documented in this encounter Results VAS Arm Bilateral Mapping [...] | ESRD (end stage renal disease) (HCC) End stage renal disease | + + documented in this encounter"
--- OUTSIDE RECORDS SUMMARY | ~2020-05-08 | XMS | Encounter Summary ---
Demographics + + + | Address | [address] | | | [place] [address] | + + + | Home Phone [...] | + + +---------+ + | Charlotte Anduajr | ECON | Unknown | | + + +---------+ + Care Team Providers + +------+ + | Care Email Marketing Intern Name | Role | Phone | + +------+ + PCP | Unavailable | + +------+ + Encounter Details +--------+ + + + + | Date | Type | Department | Care Team | Description | +--------+ + + + + | 07/18/ | [facility] | [facility] | Nelson Lutz MD | | | 2002 | Encounter | MED CTR GENERIC OP | [address] [place] | | | | | CONV DEPT [address] | [address] [place] | | | | | [address] [place], | [address] | | | | | [place] [address] | | | | | | [phone] | | | +--------+ + + + [...] Visit | | [address] [facility] | | | | | | [address] [place] | | | | | | [address] | | | | | | | | +--------+---------+ + + + documented as of this encounter Visit Diagnoses Not on filedocumented in this encounter"
--- OUTSIDE RECORDS SUMMARY | ~2020-05-08 | XMS | Encounter Summary ---
Demographics + + + | Address | [address] | | | [place] [address] | + + + | Home Phone | | + + + | Preferred Language | Unknown | + + + | Marital Status | | + + + | Yarsanism Affiliation | 1077 | + + + | Race | Unknown | + + + | Ethnic Group | Unknown | + + + Author + + + | Author | [facility] | | | and [place] | + + + | Organization | [facility] | | [...] Team Providers + +------+ + | Care Software Solutions Architect Name | Role | Phone | + [...] + + | 03/14/ | Refill | [facility] | Farrukh Acuna MD | Medication Refill | | 2020 | | NEPHROLOGY [place] | [address] [place] | | | | | [address] | [address] [place], [place] | | | | | [address] | [address] | | | | | [place], [place] | | | | | | [address] | | | | | | [phone] | | | +--------+--------+ + + + [...] 2020 | Visit | | [address] [facility] | | | | | | [address] [place] | | | | | | [address] | | | | | | | | +--------+---------+ + + + documented as of this encounter Visit Diagnoses + + | Diagnosis | + + | Essential hypertension - Primary Unspecified essential hypertension | + + | Persistent proteinuria Proteinuria | + + | CKD (chronic kidney disease) stage 5, GFR less than 15 ml/min ([facility]) Chronic kidney | | disease, Stage V | + + documented in this encounter"
--- OUTSIDE RECORDS SUMMARY | ~2020-05-08 | XMS | Encounter Summary ---
Demographics + + + | Address | [address] | | | [place] [address] | + + + | Home Phone [...] Team Providers + +------+ + | Care Project Director Name | Role | Phone | + +------+ + | Rahul Silva MD | PCP | | + +------+ + Reason for Visit +--------+ + | Reason | Comments | +--------+ + | Other | lab result | +--------+ + Encounter Details +--------+ + + + + | Date | Type | Department | Care Team | Description | +--------+ + + + + | 08/13/ | Telephone | [facility] | Farrukh Acuna MD | Other (lab result) | | 2019 | | NEPRHOLOGY [place] | [address] [facility] [address] [place] | | | | | [address] | [address] [place], [place] | | | | | [address] [place], [place] | [address] | | | | | [address] | | | | | | [phone] | | | +--------+ + + + [...] 2020 | Visit | | [address] [facility] | | | | | | [address] [place], [place] | | | | | | [address] | | | | | | | | +--------+---------+ + + + documented as of this encounter Visit Diagnoses Not on filedocumented in this encounter"
--- OUTSIDE RECORDS SUMMARY | ~2020-05-08 | XMS | Encounter Summary ---
Demographics + + + | Address | [address] | | | [place] [address] | + + + | Home Phone [...] Team Providers + +------+ + | Care Phlebotomy Program Coordinator Name | Role | Phone | + +------+ + | Rahul Silva MD | PCP | | + +------+ + Encounter Details +--------+ + + + + | Date | Type | Department | Care Team | Description | +--------+ + + + + | 12/19/ | Orders Only | [facility] | Conversion | | | 2016 | | NEPHROLOGY [place] | Transaction, | | | | | [address] | Provider Unknown | | | | | [address] [place] | | | | | | [address] | (Fax) | | | | | [phone] | | | +--------+ + + + [...] 2020 | Visit | | [address] [facility] | | | | | | [facility] | | | | | | [address] | | | | | | | | +--------+---------+ + + + documented as of this encounter Procedures + +--------+ + + + | Procedure Name | Priori | Date/Time | Associated Diagnosis | Comments | | | ty | | | | + +--------+ + + + | VITAMIN D, | Routin | 12/19/2016 | | Results for this | | DEFICIENCY SCREEN | e | 1:13 PM | | procedure are in the | | (25-HYDROXY) | | PST | | results section. | + +--------+ + + + | PROTEIN/CREATININE | Routin | 12/19/2016 | | Results for this | | RATIO, URINE | e | 1:13 PM | | procedure are in the | | | | PST | | results section. | + +--------+ + + + | URIC ACID | Routin | 12/19/2016 | | Results for this | | | e | 1:13 PM | | procedure are in the | | | | PST | | results section. | + +--------+ + + + documented in this encounter Results Protein/Creatinine Ratio, Urine (12/19/2016 1:13 PM PST) + + + + + + | Component | Value | Ref Range | Performed | Pathologist | | | | | At | Signature | + + + + + + | Protein/Cre | 1560.3 (A) | 0 - 150 | EXTERNAL [...] + + Vitamin D, Deficiency Screen (25-Hydroxy) (12/19/2016 1:13 PM PST) + +-------+ + + + | Component | Value | Ref Range | Performed | Pathologist | | | | | At | Signature | + +-------+ + + + | Vit D, | 34 | 30 - 100 | EXTERNAL | [...] | + +---------+ + + Uric Acid (12/19/2016 1:13 PM PST) + +-------+ + + + | Component | Value | Ref Range | Performed | Pathologist | | | | | At | Signature | + +-------+ + + + | Uric Acid | 5.2 | 4.4 - 7.6 | EXTERNAL | [...]
--- OUTSIDE RECORDS SUMMARY | ~2020-05-08 | XMS | Encounter Summary ---
Demographics + + + | Address | [address] | | | [place] [address] | + + + | Home Phone | | + + + | Preferred Language | Unknown | + + + | Marital Status | | + + + | Christian Affiliation | 1077 | + + + [...] Providers + +------+ + | Care Manager Of Application Development Name | Role | Phone | + [...] + + | 02/07/ | Refill | [facility] | Farrukh Acuna MD | Medication Refill | | 2020 | | NEPHROLOGY [place] | [address] [place] | | | | | [address] | [address] [place], [place] | | | | | [facility] [address] | [address] | | | | | [place], [place] | | | | | | [address] | | | | | | [phone] | | | +--------+--------+ + + + [...] | Visit | | [address] [facility] | | | | | | [address] [place] | | | | | | [address] | | | | | | | | +--------+---------+ + + + documented as of this encounter Visit Diagnoses + + | Diagnosis | + + | Essential hypertension - Primary Unspecified essential hypertension | + + documented in this encounter"
--- OUTSIDE RECORDS SUMMARY | ~2020-05-08 | XMS | Encounter Summary ---
Demographics + + + | Address | [address] | | | [place] [address] | + + + | Home Phone [...] Team Providers + +------+ + | Care Plastic Worker Name | Role | Phone | [...] Conner, | | | | | | CKD | DNP [address] | | | | | | (chronic | [address] | | | | | | kidney | [place] | | | | | | disease) | [place] | | | | | | stage 5, GFR | [address] | | | | | | less than | Phone: | | | | | | 15 ml/min | [phone] | | | | | | (HCC) | Fax: | | | | | | Procedures | [phone] | | | | | | VAS | | | | | | | Hemodialysis | | | | | | | Graft | | | | | | | Fistula | | | +--------+--------+ + + + + Reason for Visit + + + | Reason | Comments | + + + | Follow-up | | + + + Encounter Details +--------+---------+ + + + | Date | Type | Department | Care Team | Description | +--------+---------+ + + + | 10/20/ | Office | [facility] | Trisha Conner DNP | CKD (chronic kidney | | 2019 | Visit | VASCULAR SURGERY | [address] | disease) stage 5, | | | | [address] | [place], [place] | GFR less than 15 | | | | [place], [place] | [address] | ml/min (HCC) | | | | [address] | | (Primary Dx); AVF | | | | [phone] | | (arteriovenous | | | | | | fistula) (HCC) | +--------+---------+ + + + Social History [...] Last Filed Vital Signs + +---------+ + + | Vital Sign | Reading | Time Taken | Comments | + +---------+ + + | Blood Pressure | 129/51 | 10/20/2019 2:24 PM | | | | | PST | | + +---------+ + + | Pulse | 73 | 10/20/2019 2:24 PM | | | | | PST | | + +---------+ + + | Temperature | - | - | | + +---------+ + + | Respiratory Rate | - | - | | + +---------+ + + | Oxygen Saturation | 90% | 10/20/2019 2:24 PM | | | | | PST | | + +---------+ + + | Inhaled Oxygen | - | - | | | Concentration | | | | + +---------+ + + | Weight | - | - | | + +---------+ + + | Height | - | - | | + +---------+ + + | Body Mass Index | - | - | | + +---------+ + + documented in this encounter Progress Notes Trisha Conner DNP - 10/20/2019 2:30 PM [facility] [address] [place] [address] Office: [phone] DATE OF VISIT: 10/20/2019 PATIENT NAME: Kavon Andujar : 1940; AGE: 79 y.o.; Sex:M PHONE NUMBER: ; ; PROVIDER: Trisha Conner DNP PRIMARY CARE / REFERRING PHYSICIAN: No ref. provider found / Rahul Silva MD / [address] [facility] [address] / [place] [address] REASON FOR EVALUATION / CHIEF COMPLAINT: Vascular Surgery Postoperative Visit for AVF creation The patient presents today for a Vascular Surgery Postoperative Visit. The patient is statu s post right brachiocephalic AVF creation, which was performed on 09/10/2019 at the [facility] Operating Room. The patient is not having any pain. The patient denie s fever, wound drainage, increasing redness, pus, increasing pain, increasing swelling. Phys ical examination revealed surgical incision is healed. He has good thrills over the AVF site . Patient's electroneurodiagnostic technologist is Dr. Acuna. The patient is not receiving hemodialysis yet but wi ll require hemodialysis soon. VITAL SIGNS: BP 129/51 | Pulse 73 | SpO2 90% PHYSICAL EXAM: Constitutional: Well nourished, no signs of distress Cardiovascular: Normal rate, regular rhythm. Pulmonary/Chest: No respiratory distress. Abdominal: Soft. No abdominal distension or tenderness. Musculoskeletal: Normal range of motion. Extremities: No cyanosis or clubbing. Neurological: He is alert and oriented. VASCULAR: right upper arm examination showed normal thrills in the AV fistula. Feng rgical incision Wound is healed, a lump at incision site without signs of infection. Assessment & Plan: ESRD & s/p AV fistula creation - right arm AVF may be accessed when indicated. Check for A VF thrill daily. Instruction given to patient to continue with hand exercise with squeezing soft object or ball. Also advised patient to avoid sleeping on his right side as it may caus e AVF compression resulting in hand swelling and fistula occlusion. Follow up as needed. Trisha Conner DNP documented in this encounte r Plan of Treatment +--------+---------+ + + + | Date | Type | Specialty | Care Team | Description | +--------+---------+ + + + | 06/05/ | Office | Nephrology | Farrukh Acuna MD | | | 2019 | Visit | | [address] [facility] | | | | | | [address] [place], [place] | | | | | | [address] | | | | | | | | +--------+---------+ + + + documented as of this encounter Results VAS Hemodialysis Graft Fistula (10/20/2019 3:55 [...] GFR less than 15 ml/min ([facility]) - Primary Chronic | | kidney disease, Stage V | + + | AVF (arteriovenous fistula) ([facility]) Arteriovenous fistula, acquired | + + documented in this encounter"
--- OUTSIDE RECORDS SUMMARY | ~2020-05-08 | XMS | Encounter Summary ---
Demographics + + + | Address | [address] | | | [place] [address] | + + + | Home Phone [...] Team Providers + +------+ + | Care Fitter Mechanic Name | Role | Phone | [...] + + | 09/10/ | Hospital | [facility] | Brian Orosco MD | CKD (chronic kidney | | 2019 | Encounter | [facility] | [address] | disease) stage 5, | | | | OPERATING ROOM [address] | [place], [place] | GFR less than 15 | | | | [address] | [address] | ml/min ([facility]) | | | | [place], [place] | [phone] | | | | | [address] | | | | | | [phone] | | | +--------+ + + + [...] regarding your dialysis shunt, please contact your ysician at [phone]. Discharge instructions for Diagnostic Imaging sedation patients [...] . For any severe symptoms, please call [phone] or report to your nearest Emergency Department. Acetaminophen; Hydrocodone tablets or capsules Brand Names: Anexsia, Lorcet, Lorcet HD, Lorcet Plus, Lortab, Charleston, Verdrocet, Vicodin, Vi codin ES, Vicodin HP, Xodol What is this medicine? ACETAMINOPHEN; HYDROCODONE (a set a NOEL myaur fen; dorian droe KOE done) is a [...] information carefully each time. Talk to your logistics operations director regarding the use of this medicine in children. Special care may be needed. What side effects may I notice from receiving this medicine? Side effects that you should report to your doctor or health school child care attendant as soon as p ossible: allergic reactions [...] attention (report to your doctor or health school child care attendant if they continue or are bothersome): constipation [...] official disposal site. Contact the [facility] at [phone] or your [facility] government to find a site. If you [...] this medicine? Tell your doctor or health school child care attendant if your pain does not go away, [...] cuts, scrapes, or blows. Date Last Reviewed: 12/01/201619994050-[address] [employer] [place], [place] [address]. All righ ts reserved. This information is [...] + + + +---------+ + + | ARABELLAJuan PabloUS COSTABRIANAR | Inject 25 Units | | 0 [...] | 0 | 06/18/20 | | | (EDIN ODT) 8 mg | | | | [...] and bl ood clots prevention. Prescription for Charleston given and side effects were explained. Patient states that he also takes oxycodone at home; patient and his family were educated about taki ng oxycodone or Charleston only and not both. OTC Tylenol intake [...] 2019 | Visit | | [address] [facility] | | | | | | [address] [place], [place] | | | | | | [address] | | | | | | | [...] Testing | 65 - 99 mg/dL | [facility] | | | POC | performed at [facility];[address] | | LABORATORY | | | | [address];[place], [place] | | | | | | [address] | | | | + + + + + + + + | Specimen | + + | | + + + + + + + | Performing | Address | City/State/Zipcode | Phone Number | | Organization | | | | + + + + + | [facility] | [address] | [place] [address] | [phone] | + + + + + POC Glucose (09/10/2019 12:13 PM PDT) + + + + + + | Component | Value | Ref Range | Performed | Pathologist | | | | | At | Signature | + + + + + + | Glucose, | 150 (H)Comment: Testing | 65 - 99 mg/dL | [place] | | | POC | performed at [facility];[address] | | LABORATORY | | | | [address];[place], [place] | | | | | | [address] | | | | + + + + + + + + | Specimen | + + | | + + + + + + + | Performing | Address | City/State/Zipcode | Phone Number | | Organization | | | | + + + + + | [facility] | [address] | [place] [address] | [phone] | + + + + + documented [...] One week or | | | longer, npinwu-hsa-tjhbj use of | | | at least [...]
--- OUTSIDE RECORDS SUMMARY | ~2020-05-08 | XMS | Encounter Summary ---
Demographics + + + | Address | [address] | | | [place] [address] | + + + | Home Phone [...] Team Providers + +------+ + | Care Bakery Products Checker Name | Role | Phone | + +------+ + | Rahul Silva MD | PCP | | + +------+ + Encounter Details +--------+ + + + + | Date | Type | Department | Care Team | Description | +--------+ + + + + | 07/26/ | Orders Only | [facility] | Farrukh Acuna MD | Chronic kidney | | 2019 | | NEPRHOLOGY [place] | [address] | disease, stage IV | | | | [address] | [address] [place], [place] | (severe) (HCC); | | | | [address] [place], [place] | [address] | Persistent | | | | [address] | | proteinuria; | | | | [phone] | | Secondary | | | | [...] | | | | | | [address] [place], [place] | | | | | | [address] | | | | | | | [...]
--- OUTSIDE RECORDS SUMMARY | ~2020-05-08 | XMS | Encounter Summary ---
Demographics + + + | Address | [address] | | | [place] [address] | + + + | Home Phone | | + + + | Preferred Language | Unknown | + + + | Marital Status | Single | + + + | Uatsdin Affiliation | PRO | + + + [...] [place] | | | | | [address] | | + + + + + Care Team Providers + +------+ + | Care Loan Review Analyst Name | Role | Phone | + +------+ + PCP | Unavailable | + +------+ + Encounter Details +--------+ + + + + | Date | Type | Department | Care Team | Description | +--------+ + + + + | 02/26/ | Results | | Other, Faculty | | | 1993 | Only | | [phone] | | +--------+ + + + + [...] | + +--------+ + + + | FLUOROSCOPY, | Routin | 02/26/1994 | | Results for this | | INDEPENDENT PORT. | e | 3:15 PM | | procedure are in the | | | | PST | | results section. | + +--------+ + + + documented in this encounter Results FLUOROSCOPY, INDEPENDENT PORT. (02/26/1994 3:15 PM PST) + + + + + + | Component | Value | Ref Range | Performed | Pathologist | | | | | At | Signature | + + + + + + | FLUOROSCOPY | Radiologist 1: [place], | | | | | , | Idris MONROY IMPRESSION: | | | | | INDEPENDENT | MOBILE FLUOROSCOPY | | | | | PORT. | SERVICES WERE PERFORMED | | | | | | UNDER THE DIRECTION OF | | | | | | THEORDERING PHYSICIAN. | | | | | | END OF IMPRESSION: | | | | | | | | | | | |END OF IMPRESSION: | | | | | | | | | | + + + + + + + + | Specimen | + + | | + + + + + | Narrative | Performed At | + + + | Ordered by MARICEL MORAN | | + + + + +---------+ + + | Performing | Address | City/State/Zipcode | Phone Number | | Organization | | | | + +---------+ + + | [facility] | | | | | RADIOLOGY | | | | + +---------+ + + documented in this encounter Visit Diagnoses Not on filedocumented in this encounter"
--- OUTSIDE RECORDS SUMMARY | ~2020-05-08 | XMS | Encounter Summary ---
Demographics + + + | Address | [address] | | | [place] [address] | + + + | Home Phone [...] Team Providers + +------+ + | Care Agriculture Teacher Name | Role | Phone | + +------+ + | Rahul Silva MD | PCP | | + +------+ + Encounter Details +--------+ + + + + | Date | Type | Department | Care Team | Description | +--------+ + + + + | 03/13/ | Orders Only | [facility] | Conversion | | | 2016 | | NEPHROLOGY [place] | Transaction, | | | | | [address] | Provider Unknown | | | | | [address] | | | | | | [address] | (Fax) | | | | | [phone] | | | +--------+ + + + [...] | | | | | | [facility] | | | | | | [address] | | | | | | | | +--------+---------+ + + + documented as of this encounter Procedures + +--------+ + + + | Procedure Name | Priori | Date/Time | Associated Diagnosis | Comments | | | ty | | | | + +--------+ + + + | EXTERNAL LAB: CBC | Routin | 03/13/2017 | | Results for this | | | e | 2:05 PM | | procedure are in the | | | | PDT | | results section. | + +--------+ + + + | URINALYSIS, | Routin | 03/13/2017 | | Results for this | | MICROSCOPIC ONLY | e | 2:05 PM | | procedure are in the | | | | PDT | | results section. | + +--------+ + + + | RENAL FUNCTION PANEL | Routin | 03/13/2017 | | Results for this | | | e | 2:05 PM | | procedure are in the | | | | PDT | | results section. | + +--------+ + + + documented in this encounter Results Urinalysis, Microscopic Only (03/13/2017 2:05 PM PDT) + + + + + [...] - 1.030 | EXTERNAL | | | [place], | | | LAB | | | [...] + + + + | Protein, | Negative | | EXTERNAL | | [...] + + + + | Ketones | Neagtive | | EXTERNAL | | | | [...] + +---------+ + + External Lab: CBC (03/13/2017 2:05 PM PDT) + + + + + + | Component | Value | Ref Range | Performed | Pathologist | | | | | At | Signature | + + + + + + | WBC | 10.8 | 4.5 - 11.0 10 | EXTERNAL | | | | | | LAB | | + + + + + + | Red Blood | 3.60 (A) | 4.3 - 5.7 10 | EXTERNAL | | | Cells | | | LAB | | | Counted | | | | | + + + + + + | Hemoglobin | 10.2 (A) | 13.5 - 18.0 | EXTERNAL | | | | | g/dL | LAB | | + + + + + + | Hematocrit, | 30.5 (A) | 41 - 50 % | EXTERNAL | | | POC | | | LAB | | + + + + + + | MCV | 84.8 | 81 - 99 fL | EXTERNAL [...] + + + + | RDW-CV | 16.6 (A) | 10.5 - 15.0 % | [...] + +---------+ + + Renal Function Panel (03/13/2017 2:05 PM PDT) + + + + + + | Component | Value | Ref Range | Performed | Pathologist | | | | | At | Signature | + + + + + + | Glucose, | 2,018 (A) | 70 - 100 mg/dL | EXTERNAL | | | Fasting | | | LAB | | + + + + + + | BUN | 56 (A) | 6 - 23 mg/dL | EXTERNAL | | | | | | LAB | | + + + + + + | Creatinine | 2.97 (A) | 0.70 - 1.18 | EXTERNAL [...] + + + | Anion Gap | 18.4 | 7 - 21 mmol/L | EXTERNAL | | | | | | LAB | | + + + + + + | eGFR if not | | | EXTERNAL | | | | | | LAB | | | POLISH | | | | | + + + + + + | Phosphorus, | 4.9 | 2.5 - 5.0 | EXTERNAL | | | Inorganic | | | LAB | | + + + + + + | BUN/Creatin | 18.9 | 6.0 - 28.6 | EXTERNAL | | | ine Ratio | | | LAB | | + + + + + + | Calcium | 8.2 (A) | 8.4 - 10.2 | EXTERNAL [...]
--- OUTSIDE RECORDS SUMMARY | ~2020-05-08 | XMS | Encounter Summary ---
Demographics + + + | Address | [address] | | | [place] [address] | + + + | Home Phone [...] Team Providers + +------+ + | Care Cardroom Supervisor Name | Role | Phone | + +------+ + | Rahul Silva MD | PCP | | + +------+ + Encounter Details +--------+ + + + + | Date | Type | Department | Care Team | Description | +--------+ + + + + | 02/12/ | Orders Only | [facility] | Farrukh Acuna MD | | | 2018 | | NEPHROLOGY [place] | [address] [place] | | | | | [address] [place] | [address] [place], [place] | | | | | [address] [place], [place] | [address] | | | | | [address] | | | | | | [phone] | | | +--------+ + + + [...] 2020 | Visit | | [address] [facility] | | | | | | [address] [place] [address] | | | | | | [address] | | | | | | | [...] + + + | Red Blood | 3.5 (A) | 4.3 - 5.7 [...]
--- OUTSIDE RECORDS SUMMARY | ~2020-05-08 | XMS | Encounter Summary ---
Demographics + + + | Address | [address] | | | [place] [address] | + + + | Home Phone [...] Team Providers + +------+ + | Care Insurance Rater Name | Role | Phone | + +------+ + | Rahul Silva MD | PCP | | + +------+ + Encounter Details +--------+---------+ + + + | Date | Type | Department | Care Team | Description | +--------+---------+ + + + | 12/06/ | Office | [facility] | Farrukh Acuna MD | CKD (chronic kidney | | 2020 | Visit | NEPHROLOGY [place] | [address] [place] | disease) stage 5, | | | | [address] | [address] [place], [place] | GFR less than 15 | | | | [address] | [address] | ml/min (HCC) | | | | [place], [place] | | (Primary Dx); Anemia | | | | [address] | | of chronic kidney | | | | [phone] | | failure, stage 5 | | [...] | | | | | | (HCC); Type 2 | | | | | [...] Also: I see no need for acute ALLEY CLEANER. I see no need to send him [...] 10/2016 with severe pneumonia, severe ZEKE; needed ALLEY CLEANER for ~5 weeks b efore renal function recovery mid 12/2016. He was admitted to [facility] for 3 nights in July 2016 [...] of iron by mouth 4 times daily th meals., Disp: , Rfl: insulin aspart [...] 10/2016 with severe pneumonia, severe ZEKE; needed ALLEY CLEANER for ~5 weeks b efore renal function [...] Also: I see no need for acute ALLEY CLEANER. I see no need to send him [...] 2019 | Visit | | [address] [facility] | | | | | | [address] [place], [place] | | | | | | [address] | | | | | | | | +--------+---------+ + + + documented as of this encounter Visit Diagnoses + + | Diagnosis | + + | CKD (chronic kidney disease) stage 5, GFR less than 15 ml/min ([facility]) - Primary Chronic | | kidney disease, Stage V | + + | Anemia of chronic kidney failure, stage 5 ([facility]) | + + | Edema [...]
--- OUTSIDE RECORDS SUMMARY | ~2020-05-08 | XMS | Encounter Summary ---
Demographics + + + | Address | [address] | | | [place] [address] | + + + | Home Phone | | + + + | Preferred Language | Unknown | + + + | Marital Status | Single | + + + | Restoration Affiliation | PRO | + + + [...] [place] | | | | | [address] | | + + + + + Care Team Providers + +------+ + | Care Car Wrecker Name | Role | Phone | + [...] Clinic | | | | | | [facility], [address] | | | | | | [place], [place] | | | | | | [address] | | | | | | [phone] | | | +--------+ + + + [...] as of this encounter Progress Notes Interface, Inventory Control Specialist In - 01/09/2007 5:07 AM PST CLINIC DATE: 10/03/97 [facility] - PROGRESS NOTE CHIEF [...] Vargas D.O. Resident, Anesthesiology Nelson Melara M.D. Box Sealing Machine Catcher, Anesthesiology [facility] KAYLEENM/cjv cc: [facility]ERMA[facility]ONID[facility] [place] [address] JESSENIA RODRIGUEZ MD DEPARTMENT OF FAMILY MEDICINE [facility] documented in this encounter Plan of Treatment Not on filedocumented as of this encounter Visit Diagnoses Not on filedocumented in this encounter"
--- OUTSIDE RECORDS SUMMARY | ~2020-05-08 | XMS | Encounter Summary ---
Demographics + + + | Address | [address] | | | [place] [address] | + + + | Home Phone | | + + + | Preferred Language | Unknown | + + + | Marital Status | Single | + + + | Jehovah'S Witness Affiliation | PRO | + + + | Race | White | + + + | Ethnic Group | Not or | + + + Author + + + | Author | [facility] | + + + | Organization | [facility] | + + + | Address | Unknown | + + + | Phone | Unavailable | + + + Support + + + + + | Name | Relationship | Address | Phone | + + + + + | Darci Andujar | VALERIE | [place] | | | | | [address] | | + + + + + Care Team Providers + +------+ + | Care Peanut Sheller Name | Role | Phone | + +------+ + PCP | Unavailable | + +------+ + Encounter Details +--------+ + + + + | Date | Type | Department | Care Team | Description | +--------+ + + + + | 06/07/ | Transcribed | [facility] at | Dictation, Other | Transcribed | | 1996 | | [facility] [address] | | | | | | Selvin Whittaker | | | | | | Ronaldo Vyas | | | | | | [address] | | | | | | [place], [place] | | | | | | [address] | | | | | | [phone] | | | +--------+ + + + [...] as of this encounter Progress Notes Interface, Instrument Technician Apprentice In - 01/22/2007 3:04 AM PST [address] [address] or June 07, 1997 Pravin VALLES MD [facility] [address] RE:Kavon Andujar MR#:[id number] Valles: I saw Kavon Andujar in the Neurology Clinic today and have enclosed a copy of my note. 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 He also [...] possibility of cerebellar hemangiomas and/or hematomas. Mr. Jacobson will also require reevaluation in Dr. Moise's [...] over the telephone. Sincerely, Michelle Landon M.D. Physiognomist, Neurology JINNY/ C: 06/13/97 cc: Alina Moise M.D. Division of Neurosurgery [facility] Robert Carlson M.D. Division of Vascular Surgery [facility] documented in this encounter Plan of Treatment Not on filedocumented as of this encounter Visit Diagnoses Not on filedocumented in this encounter
--- OUTSIDE RECORDS SUMMARY | ~2020-05-08 | XMS | Encounter Summary ---
Demographics + + + | Address | [address] | | | [place] [address] | + + + | Home Phone | | + + + | Preferred Language | Unknown | + + + | Marital Status | | + + + | Latter Day Affiliation | 1077 | + + + [...] Team Providers + +------+ + | Care Veterinary Technician Assistant Name | Role | Phone | [...] | | | | | | | ([facility]) | | | | | | | [...] + + | 09/10/ | Surgery | [facility] | Brian Orosco MD | INSERTION AV FISTULA | | 2019 | [facility] | [address] | (Right BBF) | | | | OPERATING ROOM [address] | [place], [place] | | | | | [address] | [address] | | | | | [place], [place] | [phone] | | | | | [address] | | | | | | [phone] | | | +--------+---------+ + + + [...] shunt, please contact your ph ysician at [phone]. Discharge instructions for Diagnostic Imaging sedation patients [...] in a reclining position for the ri ri home, or have an adult in the [...] Anexsia, Lorcet, Lorcet HD, Lorcet Plus, Lortab, Bailey, Verdrocet, Vicodin, Vi codin ES, Vicodin HP, [...] information carefully each time. Talk to your english tutor regarding the use of this medicine in children. Special care may be needed. What side effects may I notice from receiving this medicine? Side effects that you should report to your doctor or health care director rn as soon as p ossible: allergic reactions [...] attention (report to your doctor or health care director rn if they continue or are bothersome): constipation [...] to an official disposal site. Contact the [facility] at [phone] or your [facility] to find a site. If you [...] this medicine? Tell your doctor or health care director rn if your pain does not go away, [...] cuts, scrapes, or blows. Date Last Reviewed: 12/01/201619998020-5167 The [employer]. [address] [place] [address], [place] [id number]. All righ ts reserved. This information is [...] | | | | | | | ([facility]), Secondary | | | | | | [...] and bl ood clots prevention. Prescription for Bailey given and side effects were explained. Patient states that he also takes oxycodone at home; patient and his family were educated about taki ng oxycodone or Bailey only and not both. OTC Tylenol intake [...] 2019 | Visit | | [address] [facility] | | | | | | [address] [place], [place] | | | | | | [address] | | | | | | | [...] Testing | 65 - 99 mg/dL | [facility] | | | POC | performed at [facility];[address] | | LABORATORY | | | | [address];[place] | | | | | | [address] | | | | + + + + + + + + | Specimen | + + | | + + + + + + + | Performing | Address | City/State/Zipcode | Phone Number | | Organization | | | | + + + + + | [facility] | [address] | [place] [address] | [phone] | + + + + + POC [...] | | | POC | performed at [facility];[address] | | LABORATORY | | | | [address];[place], [place] | | | | | | [address] | | | | + + + + + + + + | Specimen | + + | | + + + + + + + | Performing | Address | City/State/Zipcode | Phone Number | | Organization | | | | + + + + + | [facility] | [address] | [place] [address] | [phone] | + + + + + documented [...] less than 15 ml/min ([facility]) Chronic kidney | | disease, Stage V [...] One week or | | | longer, gxksep-uzi-tzypd use of | | | at least [...]
--- OUTSIDE RECORDS SUMMARY | ~2020-05-08 | XMS | Encounter Summary ---
Demographics + + + | Address | [address] | | | [place] [address] | + + + | Home Phone [...] Providers + +------+ + | Care Cloth Seconds Sorter Name | Role | Phone | + +------+ + | Rahul Silva MD | PCP | | + +------+ + Encounter Details +--------+ + + + + | Date | Type | Department | Care Team | Description | +--------+ + + + + | 10/05/ | Orders Only | [facility] | Farrukh Acuna MD | Essential | | 2019 | | NEPHROLOGY [place] | [address] [place] | hypertension | | | | [address] | [address] [facility] [place] | (Primary Dx); Iron | | | | [address] | [address] | deficiency; | | | | [place], [place] | | Secondary | | | | [address] | | hyperparathyroidism | | | | [phone] | | (HCC); CKD (chronic | | | | | | kidney disease) | | | | | | stage 5, GFR less | | | | | | than 15 ml/min ([facility]) | +--------+ + + [...] 2020 | Visit | | [facility] | | | | | | [facility] | | | | | | [address] | | | | | | | [...] | | | | | | ml/min ([facility]) | | + +------+--------+ + [...] | | | | | | ml/min ([facility]) | | + +------+--------+ + [...] | | | | than 15 ml/min ([facility]) | | + +------+--------+ + [...]
--- OUTSIDE RECORDS SUMMARY | ~2020-05-08 | XMS | Encounter Summary ---
Demographics + + + | Address | [address] | | | [place] [address] | + + + | Home Phone [...] Team Providers + +------+ + | Care Egg Caser Name | Role | Phone | + [...] | | | [address] | [place] [address] | | | | | [place] [address] | | | | | | [phone] | | | +--------+ + + + [...] 2020 | Visit | | [address] [facility] | | | | | | [address] [place] | | | | | | [address] | | | | | | | [...]
--- OUTSIDE RECORDS SUMMARY | ~2020-05-08 | XMS | Encounter Summary ---
Demographics + + + | Address | [address] | | | [place] [address] | + + + | Home Phone [...] Team Providers + +------+ + | Care President + Publisher Name | Role | Phone | + +------+ + | Rahul Silva MD | PCP | | + +------+ + Encounter Details +--------+ + + + + | Date | Type | Department | Care Team | Description | +--------+ + + + + | 05/27/ | Orders Only | [facility] | Conversion | | | 2019 | | NEPHROLOGY [place] | Transaction, | | | | | [address] | Provider Unknown | | | | | [address] [place] [address] | | | | | | [address] | (Fax) | | | | | [phone] | | | +--------+ + + + [...] 2020 | Visit | | [facility] | | | | | | [address] [facility] | | | | | | [address] | | | | | | | [...]
--- OUTSIDE RECORDS SUMMARY | ~2020-05-08 | XMS | Encounter Summary ---
Demographics + + + | Address | [address] | | | [place] [address] | + + + | Home Phone [...] Team Providers + +------+ + | Care Veneer Stapler Name | Role | Phone | + +------+ + | Rahul Silva MD | PCP | | + +------+ + Reason for Visit +---------+ + | Reason | Comments | +---------+ + | Results | 09/30/19 | +---------+ + Encounter Details +--------+ + + + + | Date | Type | Department | Care Team | Description | +--------+ + + + + | 10/04/ | Documentati | [facility] | Simon, | Results (09/30/19) | | 2019 | on | NEPHROLOGY [place] | [facility] | | | | | [address] | Medical Registrar | | | | | [address] | | | | | | [place] | | | | | | [address] | | | | | | [phone] | | | +--------+ + + + [...] 2020 | Visit | | [facility] [address] [facility] | | | | | | [address] [place] [address] | | | | | | [address] | | | | | | (Fax) | | +--------+---------+ + + + documented as of this encounter Procedures + +--------+ + + + | Procedure Name | Priori | Date/Time | Associated Diagnosis | Comments | | | ty | | | | + +--------+ + + + | EXTERNAL LAB: [facility], | Routin | 09/30/2019 | | Results [...] in this encounter Results Renal Function Panel (09/30/2019) + + + [...] Blood | + + CBC with Differential (09/30/2019) + + + + + + [...] | + + External Lab: PTH, Intact (09/30/2019) [...]
--- OUTSIDE RECORDS SUMMARY | ~2020-05-08 | XMS | Encounter Summary ---
Demographics + + + | Address | [address] | | | [place] [address] | + + + | Home Phone | | + + + | Preferred Language | Unknown | + + + | Marital Status | Single | + + + | Protestant Affiliation | PRO | + + + | Race | White | + + + | Ethnic Group | Not or | + + + Author + + + | Author | [facility] | + + + | Organization | [facility] | + + + | Address | Unknown | + + + | Phone | Unavailable | + + + Support + + + + + | Name | Relationship | Address | Phone | + + + + + | Darci Andujar | VALERIE | [place] | | | | | [address] | | + + + + + Care Team Providers + +------+ + | Care Parachute Manufacturing Supervisor Name | Role | Phone | + +------+ + PCP | Unavailable | + +------+ + Encounter Details +--------+ + + + + | Date | Type | Department | Care Team | Description | +--------+ + + + + | 12/22/ | Office | General Internal | Note, Outpatient | Progress Note | | 1997 | Visit-Trans | Medicine [address] | Clinic | | | | cribed | [address] | | | | | | Mailcode: L475 | | | | | | Outpatient Clinic | | | | | | [facility], [address] | | | | | | [place], [place] | | | | | | [address] | | | | | | [phone] | | | +--------+ + + + [...] of this encounter Progress Notes Interface, Medical Nurse In - 01/03/2007 5:08 AM PST CLINIC DATE: 12/22/97 Mr. Andujar is referred by Dr. Jerry Smiley in the [facility]. He is currently followed by the Anesthesia Pain Service at [facility], and also recently has been followed by Dr. Moise in Neurosurgery and Dr. Carlson in Vascular Surgery. HISTORY OF PRESENT ILLNESS: Mr. 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 As to whether this was due primarily to arterial or severe thrombophlebitis is not clear from the record or from the patient's history. This amputation occurred in 1992. The patient subsequently had continuing leg pain and phantom pain. This has been evaluated by the Anesthesia pain clinic, with unsuccessful lumbar sympathetic blocks and unsuccessful sciatic and femoral nerve blocks. He was also evaluated by Dr. Moise, who initially recommended possible resection and reimplantation of both major nerve bundles, but then subsequently recommended spinal cord stimulator therapy instead, as a more likely choice to be successful. The patient was then evaluated for his stump pain; part of this was thought to be secondary to osteophyte formation at the end of his femur. 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 Robert Carlson's supervision here at [facility]. His pain continued, exacerbated by a fall at his previous primary care physician's office, while standing for a weight on a scale. He states that at that time, he had a fracture of the end of his stump, which was treated conservatively, with no follow-up x-rays in that area. He says the pain has been worse since that time. The patient also states that in the last year, he has had two "strokes" that were apparently evident on CAT scan. His pain in his leg is now a burning electrical pain that radiates into where his amputated leg would have been, down to his phantom foot. He also describes a persistent aching pain of the entire stump, and including the buttock area. His pain is bad at night while lying down; to make the pain better he will get up and stand, moving his stump around. This alleviates the pain; however, it returns immediately when he lies back down. He has had blocks done by the Anesthesia pain clinic, into the regions of the ends of his major peripheral nerves, with relief of some of his pain. Where the idea of reexploration and possible reimplantation of the nerves was re-addressed. MEDICAL HISTORY: The patient admits to smoking a pack a day, having smoked more in the past. He states that he has not had vascular evaluation for the etiology of his strokes. He denies previous vascular disease. He admits to an injury to his back many years ago, at which time he was thought to have had a "fracture" of a vertebral body. He had shooting pains into the left leg at that time, which resolved after approximately one year. The patient denies any recent back pain or back injury, denies any previous back surgery. The patient has had an MRI of his left femur prior to his stump revision, which the patient reports to me as being normal. PHYSICAL EXAMINATION: The patient has a freely mobile left hip. The end of his stump was examined last, so as not to mask his exam. He has 4+ tenderness in the area of the femoral nerve at the groin. He also has 4+ tenderness in the area of the sciatic nerve in the buttock. There is gross sensitivity to the entirety of his stump area from the iliac crest down. The stump overall is slightly cooler than the thigh at the same level on the right. On my exam, I cannot palpate a femoral arterial pulse today. Auscultation reveals no bruits in the groin nor in the lower abdomen. Moving distally, the patient has tenderness along the entirety of his suture line, with only minimal radiation proximally. I do not get the sense that his dysesthesia in this area is succinctly in one or two spots. RADIOGRAPHIC STUDIES: Radiographs of the femur, hip and back were obtained. The patient has a normal-looking proximal femur, except for disuse osteoporosis, no apparent changes in his femoral stump on films obtained. He has minimal spondylolisthesis of L-4 on 5, and sclerotic changes at the L4-5 and L5-S1 discs. He has some mild loss of height of the posterior part of the L-5 vertebral body. It is not possible to determine any burst component to this possible old compression. There are hypertrophic facet changes posteriorly. On the lateral radiograph of the lumbosacral spine, arterial sclerotic calcifications of his aorta and his iliac artery are evident. IMPRESSION: Fairly global residual pain and phantom pain, left stump and distally, status post revision of above-knee amputation. If the patient's history of a negative MRI is correct, I doubt the presence of avascular necrosis. I see no evidence of fracture or changes in the proximal femur. The history of previous possible spine fracture, plus the history of what sounds like an episode of radicular pain may be important at this time. The history of what the patient calls "two strokes" and the presence of arteriosclerotic calcifications in his major retroperitoneal vessels makes me concerned that there may be residual internal iliac insufficiency, if not common iliac insufficiency, to this side of his body. The history of his being better with standing at night would somewhat be suggestive of this. The possibility of radicular contribution to his pain also exists. Those aside, I don't think it appropriate at this time for an orthopaedic surgeon to intervene in a previous vascular surgery case without their consultation, and also their first assessment. Given the difficulty in this case, I have recommended to the patient that he see Dr. Carlson back with the information in hand from the Anesthesia pain clinic, and I would defer to Dr. Carlson's expertise. If nerve resection is to be considered, I think it should be done in conjunction with the neurosurgeons, who would be better equipped to also assess possible proximal contributory etiologies of that pain, and also possible conjunctive and/or substitutive spinal cord stimulator therapy. I see no reason at this time to differ with the opinion or course recommended by Dr. Moise, nor with procedures to this point by Dr. Carlson, and I do not recommend an orthopaedic intervention at this time. If it can be arranged, I think EMG nerve conductions of the femoral and sciatic nerves might be instructive, if they can be localized. If there was evidence of slowing on those studies, indicative of possible radicular etiology of his pain, imaging studies of the lumbar spine would be warranted. I would defer to Dr. Carlson as to any other vascular work-up, be it ultrasound or otherwise, if it seems necessary in his opinion. The majority of a 45-minute period was spent in consultation with the patient, explaining my opinion and also my assessment of the possible poor prognosis for a simple nerve procedure at this time. [employer] M[employer] Director, Department of Orthopaedics and Rehabilitation AY/egl A cc: Jerry Smiley M.D. (with letter) [address] [place] [address] [address] [place] [address] Robert Carlson M.D. FAX: [phone] Alina Moise M.D. FAX: [phone] An[facility] Pain ClinicFAX: [phone] documented in this encounter Plan of Treatment Not on filedocumented as of this encounter Visit Diagnoses Not on filedocumented in this encounter
--- OUTSIDE RECORDS SUMMARY | ~2020-05-08 | XMS | Encounter Summary ---
Demographics + + + | Address | [address] | | | [place] [address] | + + + | Home Phone [...] Team Providers + +------+ + | Care Room Service Attendant Name | Role | Phone | [...] [address] | | | | | [place], [place] | [place], [place] | | | | | [address] | [address] | | | | | [phone] | [phone] | | | | | | | [...] 2020 | Visit | | [address] [facility] | | | | | | [facility] | | | | | | [address] | | | | | | | [...]
--- OUTSIDE RECORDS SUMMARY | ~2020-05-08 | XMS | Encounter Summary ---
Demographics + + + | Address | [address] | | | [place] [address] | + + + | Home Phone [...] Team Providers + +------+ + | Care Corporate Affairs Manager Name | Role | Phone | [...] + + | 11/12/ | Documentati | [facility] | Simon, | Results (11/10/19) | | 2019 | on | NEPHROLOGY [place] | [facility] | | | | | [address] | Vending Machine Collector | | | | | [address] [place], [place] | | | | | | [address] | | | | | | [phone] | | | +--------+ + + + [...] [place] | | | | | | [address] | | | | | | | [...]
--- OUTSIDE RECORDS SUMMARY | ~2020-05-08 | XMS | Encounter Summary ---
Demographics + + + | Address | [address] | | | [place] [address] | + + + | Home Phone [...] Providers + +------+ + | Care Automotive Parts Clerk Name | Role | Phone | [...] + + | 09/07/ | Telephone | [facility] | Sandy Gomez, | Surgery Appointment | | 2019 | | VASCULAR SURGERY | RN | | | | | [address] | | | | | | [place] | | | | | | [address] | | | | | | [phone] | | | +--------+ + + + [...] 2020 | Visit | | [address] [facility] | | | | | | [address] [place] | | | | | | [address] | | | | | | | | +--------+---------+ + + + documented as of this encounter Visit Diagnoses Not on filedocumented in this encounter"
--- OUTSIDE RECORDS SUMMARY | ~2020-05-08 | XMS | Encounter Summary ---
Demographics + + + | Address | [address] | | | [place] [address] | + + + | Home Phone [...] + | Author | [facility] | | | and [place] | + + + | Organization | [facility] | | | and [...] Team Providers + +------+ + | Care Fruit Grower Name | Role | Phone | + +------+ + | Rahul Silva MD | PCP | | + +------+ + Encounter Details +--------+ + + + + | Date | Type | Department | Care Team | Description | +--------+ + + + + | 10/27/ | Orders Only | [facility] | Conversion | | | 2016 | | NEPHROLOGY [place] | Transaction, | | | | | [address] | Provider Unknown | | | | | [address] [place] | | | | | | [address] | (Fax) | | | | | [phone] | | | +--------+ + + + [...] 2020 | Visit | | [address] [facility] [place] | | | | | | [address] [facility] [place] | | | | | | [address] | | | | | | | [...]
--- OUTSIDE RECORDS SUMMARY | ~2020-05-08 | XMS | Encounter Summary ---
Demographics + + + | Address | [address] | | | [place] [address] | + + + | Home Phone [...] Team Providers + +------+ + | Care Printing Mechanist Name | Role | Phone | + +------+ + | Rahul Silva MD | PCP | | + +------+ + Encounter Details +--------+ + + + + | Date | Type | Department | Care Team | Description | +--------+ + + + + | 12/06/ | Orders Only | [facility] | Farrukh Acuna MD | Essential | | 2020 | | NEPHROLOGY [place] | [address] [place] | hypertension | | | | [address] [place] | [address] [place], [place] | (Primary Dx); CKD | | | | [address] [place], [place] | [address] | (chronic kidney | | | | [address] | | disease) stage 5, | | | | [phone] | | GFR less than 15 | | | | | | ml/min ([facility]); Anemia | | | | | | [...] 2020 | Visit | | [address] [facility] | | | | | | [address] [place], [place] | | | | | | [address] | | | | | | | [...] | | | | | | ml/min ([facility]) | | | | | | Persistent [...] | | | | | | ml/min ([facility]) | | | | | | Persistent [...] | | | | | | ml/min ([facility]) | | | | | | Persistent [...] | | | | | | ml/min ([facility]) | | | | | | Persistent [...] | | | | | | ml/min ([facility]) | | | | | | Hypomagnesemia [...] | | | | | | ml/min ([facility]) Anemia | | | | | | of chronic kidney | | | | | | failure, stage 5 | | | | | | ([facility]) Persistent | | | | | [...] 5 | | | | | | ([facility]) Persistent | | | | | [...] | | | | | | ml/min ([facility]) | | | | | | Persistent [...]
--- OUTSIDE RECORDS SUMMARY | ~2020-05-08 | XMS | Encounter Summary ---
Demographics + + + | Address | [address] | | | [place] [address] | + + + | Home Phone [...] Providers + +------+ + | Care Manager Specialty Name | Role | Phone | + +------+ + | Rahul Silva MD | PCP | | + +------+ + Encounter Details +--------+ + + + + | Date | Type | Department | Care Team | Description | +--------+ + + + + | 10/05/ | Orders Only | [facility] | Farrukh Acuna MD | Essential | | 2019 | | NEPHROLOGY [place] | [address] [place] | hypertension | | | | [address] | [address] [place], [place] | (Primary Dx); Iron | | | | [address] | [address] | deficiency; Anemia | | | | [place], [place] | | of chronic kidney | | | | [address] | | failure, stage 5 | | | | [phone] | | (HCC) | +--------+ + + [...] [facility] | | | | | | [address] [place], [place] | | | | | | [address] | | | | | | | [...]
--- OUTSIDE RECORDS SUMMARY | ~2020-05-08 | XMS | Encounter Summary ---
Demographics + + + | Address | [address] | | | [place] [address] | + + + | Home Phone [...] Team Providers + +------+ + | Care Promotion Specialist Name | Role | Phone | [...] | | | | | | ([facility]) | [place], [place] | | | | | | Procedures | [address] | | | | | | VAS Arm | Phone: | | | | | | Bilateral | [phone] | | | | | | Mapping For | Fax: | | | | | | Dialysis | [phone] | | +--------+--------+ + + + + Reason for Visit + + + | Reason | Comments | + + + | Referral Consult | | + + + Encounter Details +--------+ + + + + | Date | Type | Department | Care Team | Description | +--------+ + + + + | 07/30/ | Telephone | [facility] | Trisha Conner DNP | Referral Consult | | 2019 | | CARDIOTHORACIC | [address] | | | | | SURGERY [address] | [place] [address] [place], [place] | | | | | [address] | [address] | | | | | [place], [place] | | | | | | [address] | | | | | | [phone] | | | +--------+ + + + [...] | | | | | | [address] [place] | | | | | | [address] | | | | | | | [...]
--- OUTSIDE RECORDS SUMMARY | ~2020-05-08 | XMS | Encounter Summary ---
Demographics + + + | Address | [address] | | | [place] [address] | + + + | Home Phone | | + + + | Preferred Language | Unknown | + + + | Marital Status | Single | + + + | Orthodoxy Affiliation | PRO | + + + | Race | White | + + + | Ethnic Group | Not or | + + + Author + + + | Author | [facility] | + + + | Organization | [facility] | + + + | Address | Unknown | + + + | Phone | Unavailable | + + + Support + + + + + | Name | Relationship | Address | Phone | + + + + + | Darci Andujar | [place]ERIE | [place] | | | | | [address] | | + + + + + Care Team Providers + +------+ + | Care New Car Salesperson Name | Role | Phone | + [...] Rd | | | | | | [place] | | | | | | [address] | | | +--------+ + + + [...] as of this encounter Discharge Summaries Interface, Legislative Director In - 04/01/2007 5:08 AM PDT [address] [address] [facility] [...] Clinic NK:freddie A cc: RUBIA KNAPP MD [address] [facility] [address] documented in this encounter Plan of Treatment Not on filedocumented as of this encounter Visit Diagnoses Not on filedocumented in this encounter"
--- OUTSIDE RECORDS SUMMARY | ~2020-05-08 | XMS | Encounter Summary ---
Demographics + + + | Address | [address] | | | [place] [address] | + + + | Home Phone [...] Team Providers + +------+ + | Care Filament Tester Name | Role | Phone | [...] | | | [address]IA [address] | [place] [address] | | | | | [place] [address] | | | | | | [phone] | | | +--------+ + + + [...] 2020 | Visit | | [address] [facility] | | | | | | [address] [place] | | | | | | [address] | | | | | | | | +--------+---------+ + + + documented as of this encounter Procedures + +--------+ + + + | Procedure Name | Priori | Date/Time | Associated Diagnosis | Comments | | | ty | | | | + +--------+ + + + | XR CHEST AP PORTABLE | Routin | 10/10/2019 | | Results for this | | | e | 12:00 AM | | procedure are in the | | | | PST | | results section. | + +--------+ + + + documented in this encounter Results XR Chest AP Portable (10/10/2019 12:00 AM PST) + + | Specimen [...]
--- OUTSIDE RECORDS SUMMARY | ~2020-05-08 | XMS | Encounter Summary ---
Demographics + + + | Address | [address] | | | [place] [address] | + + + | Home Phone [...] Team Providers + +------+ + | Care Foster Winder Name | Role | Phone | [...] Transaction, | | | | | [place], [place] | Provider Unknown | | | | | [address] | | | | | | [phone] | | | +--------+ + + + [...] 2020 | Visit | | [address] [facility] | | | | | | [address] [place] | | | | | | [address] | | | | | | | [...]
--- OUTSIDE RECORDS SUMMARY | ~2020-05-08 | XMS | Encounter Summary ---
Demographics + + + | Address | [address] | | | [place] [address] | + + + | Home Phone [...] Team Providers + +------+ + | Care Bindery Machine Setter Name | Role | Phone | + +------+ + | Rahul Silva MD | PCP | | + +------+ + Encounter Details +--------+ + + + + | Date | Type | Department | Care Team | Description | +--------+ + + + + | 10/08/ | Orders Only | [facility] | Farrukh Acuna MD | | | 2016 | | NEPHROLOGY [place] | [address] [place] | | | | | [address] [place] | [address] [place], [place] | | | | | [address] [place], [place] | [address] | | | | | [address] | | | | | | [phone] | | | +--------+ + + + [...] [place] | | | | | | [address] | | | | | | | [...]
--- OUTSIDE RECORDS SUMMARY | ~2020-05-08 | XMS | Encounter Summary ---
Demographics + + + | Address | [address] | | | [place] [address] | + + + | Home Phone [...] Team Providers + +------+ + | Care Reel Worker Name | Role | Phone | + +------+ + | Rahul Silva MD | PCP | | + +------+ + Encounter Details +--------+ + + + + | Date | Type | Department | Care Team | Description | +--------+ + + + + | 01/23/ | Orders Only | [facility] | Collin Mirza, | | | 2015 | | NEPHROLOGY [place] | [address] | | | | | [address] [place] | [address] | | | | | [address] [place], [place] | [place] | | | | | [address] | [address] | | | | | [phone] | [phone] | | | | | | | [...] 2019 | Visit | | [address] [facility] | | | | | | [address] [place], [place] | | | | | | [address] | | | | | | | [...] + + + | Red Blood | 3.53 (A) | 4.3 - 5.7 10 | EXTERNAL | | | Cells | | | LAB | | | Counted | | | | | + + + + + + | Hemoglobin | 10.7 (A) | 13.5 - 18.0 [...] | | | LAB | | | [facility] | | | | | + + [...]
--- OUTSIDE RECORDS SUMMARY | ~2020-05-08 | XMS | Encounter Summary ---
Demographics + + + | Address | [address] | | | [place] [address] | + + + | Home Phone | | + + + | Preferred Language | Unknown | + + + | Marital Status | | + + + | Scientology Affiliation | 1077 | + + + | Race | Unknown | + + + | Ethnic Group | Unknown | + + + Author + + + | Author | [facility] | | | and [place] | + + + | Organization | [facility] | | | [...] Team Providers + +------+ + | Care Jerker Name | Role | Phone | + [...] + + | 12/02/ | Documentati | [facility] | Simon, | Results (11/29/19) | | 2020 | on | NEPHROLOGY [place] | [facility] | | | | | [address] | Scarifier Operator | | | | | [address] [place], [place] | | | | | | [address] | | | | | | [phone] | | | +--------+ + + + [...] 2020 | Visit | | [address] [facility] | | | | | | [address] [place] | | | | | | [address] | | | | | | | [...] + + + + | RBC | 2.98 (A) | 4.30 - 5.70 [...]
--- OUTSIDE RECORDS SUMMARY | ~2020-05-08 | XMS | Encounter Summary ---
Demographics + + + | Address | [address] | | | [place] [address] | + + + | Home Phone [...] Team Providers + +------+ + | Care Harbour Master Name | Role | Phone | + +------+ + | Rahul Silva MD | PCP | | + +------+ + Encounter Details +--------+ + + + + | Date | Type | Department | Care Team | Description | +--------+ + + + + | 03/13/ | Orders Only | [facility] | Conversion | | | 2016 | | NEPHROLOGY [place] | Transaction, | | | | | [address] | Provider Unknown | | | | | [address] [place] | | | | | | [address] | (Fax) | | | | | [phone] | | | +--------+ + + + [...] [place] | | | | | | [address] | | | | | | | [...] - 1.030 | EXTERNAL | | | [place], | | | LAB | | | [...] | | | LAB | | | [place] | | | | | + + [...]
--- OUTSIDE RECORDS SUMMARY | ~2020-05-08 | XMS | Encounter Summary ---
Demographics + + + | Address | [address] | | | [place] [address] | + + + | Home Phone [...] Team Providers + +------+ + | Care Fast Food Attendant Name | Role | Phone | [...] [address] | | | | | [place], [place] | [place], [place] | | | | | [address] | [address] | | | | | [phone] | [phone] | | | | | | | [...] | [address] [facility] | | | | | | [address] | | | | | | | | +--------+---------+ + + + documented as of this encounter Procedures + +--------+ + + + | Procedure Name | Priori | Date/Time | Associated Diagnosis | Comments | | | ty | | | | + +--------+ + + + | RENAL FUNCTION PANEL | Routin | 11/11/2016 | | Results for this | | | e | 4:26 AM | | procedure are in the | | | | PST | | results section. | + +--------+ + + + documented in this encounter Results Renal Function Panel (11/11/2016 4:26 AM PST) + + + [...] + + | Cl | 100 | 99 - 109 mmol/L | EXTERNAL [...] + + + + | Glucose, | 129 (H) | 65 - 99 mg/dL | EXTERNAL | | | Fasting | | | LAB | | + + + + + + | BUN | 58 (H) | 8 - 25 mg/dL | EXTERNAL | | | | | | LAB | | + + + + + + | Creatinine | 4.5 (H) | 0.70 - 1.30 | EXTERNAL | | | | | mg/dL | LAB | | + + + + + + | Calcium | 7.9 (L) | 8.5 - 10.5 | EXTERNAL | | | | | mg/dL | LAB | | + + + + + + | Albumin | 2.1 (L) | 3.3 - 4.8 g/dL | EXTERNAL | | | | | | LAB | | + + + + + + | PHOSPHORUS | 5.0 (H) | 2.3 - 4.8 mg/dL | EXTERNAL | | | | | | LAB | | + + + + + + | Estimated | 14 (L)Comment: GFR <60: | mL/min/1.73_m2 | EXTERNAL [...]
--- OUTSIDE RECORDS SUMMARY | ~2020-05-08 | XMS | Encounter Summary ---
Demographics + + + | Address | [address] | | | [place] [address] | + + + | Home Phone [...] Team Providers + +------+ + | Care Fighting Vehicle Systems Maintainer Name | Role | Phone | + [...] + + | 10/06/ | Telephone | [facility] | Farrukh Acuna MD | Other | | 2019 | | NEPHROLOGY [place] | [address] [place] | | | | | [address] [place] | [address] [place], [place] | | | | | 160 [place], [place] | [address] | | | | | [address] | | | | | | [phone] | | | +--------+ + + + [...] [place] | | | | | | [address] | | | | | | | | +--------+---------+ + + + documented as of this encounter Visit Diagnoses Not on filedocumented in this encounter"
--- OUTSIDE RECORDS SUMMARY | ~2020-05-08 | XMS | Encounter Summary ---
Demographics + + + | Address | [address] | | | [place] [address] | + + + | Home Phone [...] Team Providers + +------+ + | Care Golf Caddie Name | Role | Phone | + +------+ + | Rahul Silva MD | PCP | | + +------+ + Reason for Visit +--------+ + | Reason | Comments | +--------+ + | Other | Medication question. | +--------+ + Encounter Details +--------+ + + + + | Date | Type | Department | Care Team | Description | +--------+ + + + + | 12/30/ | Telephone | [facility] | Farrukh Acuna MD | Other (Medication | | 2019 | | NEPHROLOGY [place] | [address] [place] | question.) | | | | [address] [place] | [address] [facility] [place] | | | | | 160 [facility] [place] | [address] | | | | | [address] | | | | | | [phone] | | | +--------+ + + + [...] [place] | | | | | | [address] | | | | | | | | +--------+---------+ + + + documented as of this encounter Visit Diagnoses Not on filedocumented in this encounter"
--- OUTSIDE RECORDS SUMMARY | ~2020-05-08 | XMS | Encounter Summary ---
Demographics + + + | Address | [address] | | | [place] [address] | + + + | Home Phone [...] Team Providers + +------+ + | Care V/Stol Landing Signal Officer Name | Role | Phone | [...] | | | MARIA VICTORIA BECERRIL | [place] [address] | | | | | [place] [address] | | | | | | [phone] | | | +--------+ + + + [...] 2020 | Visit | | [address] [facility] | | | | | | [facility] | | | | | | [address] | | | | | | | [...]
--- OUTSIDE RECORDS SUMMARY | ~2020-05-08 | XMS | Encounter Summary ---
Demographics + + + | Address | [address] | | | [place] [address] | + + + | Home Phone [...] Team Providers + +------+ + | Care Breastfeeding Program Coordinator Name | Role | Phone | + +------+ + | Rahul Silva MD | PCP | | + +------+ + Encounter Details +--------+ + + + + | Date | Type | Department | Care Team | Description | +--------+ + + + + | 05/27/ | Orders Only | [facility] | Conversion | | | 2018 | | NEPRHOLOGY [place] | Transaction, | | | | | [address] | Provider Unknown | | | | | [address] [place], [place] | [phone] | | | | | [address] | (Fax) | | | | | [phone] | | | +--------+ + + + [...] 2020 | Visit | | [address] [facility] | | | | | | [facility] | | | | | | [address] | | | | | | | [...] + + + | Red Blood | 3.88 (A) | 4.3 - 5.7 [...]
--- OUTSIDE RECORDS SUMMARY | ~2020-05-08 | XMS | Encounter Summary ---
Demographics + + + | Address | [address] | | | [place] [address] | + + + | Home Phone [...] Team Providers + +------+ + | Care Dough Mixing Machine Operator Name | Role | Phone | + +------+ + | Mehrdad Bergman | PCP | | + +------+ + Encounter Details +--------+ + + + + | Date | Type | Department | Care Team | Description | +--------+ + + + + | 03/28/ | Orders Only | [facility] | Farrukh Acuna MD | Essential | | 2019 | | NEPHROLOGY [place] | [address] [place] | hypertension | | | | [address] | 160 [place], [place] | (Primary Dx); Anemia | | | | [address] | [address] | of chronic kidney | | | | [place], [place] | | failure, stage 5 | | | | [address] | | (HCC); Persistent | | | | [phone] | | proteinuria; CKD | | | | | | (chronic kidney | | | | | | disease) stage 5, | | | | | | GFR less than 15 | | | | | | ml/min ([facility]) | +--------+ + + + + [...] | | | | | | [address] [facility] [place] | | | | | | [address] | | | | | | | [...] | 03/28/2021 | | | | | ([facility]) Persistent | | | | | | proteinuria CKD | | | | | | (chronic kidney | | | | | | disease) stage 5, | | | | | | GFR less than 15 | | | | | | ml/min ([facility]) | | + +------+--------+ + + | CBC with | Lab | Routin | Essential | weekly for 3 | | Differential | | e | hypertension Anemia | Occurrences starting | | | | | of chronic kidney | 03/28/2020 until | | | | | failure, stage 5 | 03/28/2021 | | | | | ([facility]) Persistent | | | | | [...] | | | | | ([facility]) Persistent | | | | | [...] | | | | | ([facility]) Persistent | | | | | [...] | | | | | ([facility]) Persistent | | | | | [...] | | | | | ([facility]) Persistent | | | | | | proteinuria CKD | | | | | | (chronic kidney | | | | | | disease) stage 5, | | | | | | GFR less than 15 | | | | | | ml/min ([facility]) | | + +------+--------+ + + | Protein/Creatinine | Lab | Routin | Essential | Expected: | | Ratio, Urine | | e | hypertension Anemia | 05/28/2020, Expires: | | | | | of chronic kidney | 03/28/2021 | | | | | failure, stage 5 | | | | | | ([facility]) Persistent | | | | | | proteinuria CKD | | | | | | (chronic kidney | | | | | | disease) stage 5, | | | | | | GFR less than 15 | | | | | | ml/min ([facility]) | | + +------+--------+ + + documented as of this encounter Visit Diagnoses + + | Diagnosis | + + | Essential hypertension - Primary Unspecified essential hypertension | + + | Anemia of chronic kidney failure, stage 5 ([facility]) | + + | Persistent proteinuria Proteinuria | + + | CKD (chronic kidney disease) stage 5, GFR less than 15 ml/min ([facility]) Chronic kidney | | disease, Stage V | + + documented in this encounter"
--- OUTSIDE RECORDS SUMMARY | ~2020-05-08 | XMS | Encounter Summary ---
Demographics + + + | Address | [address] | | | [place] [address] | + + + | Home Phone [...] Team Providers + +------+ + | Care Anesthesiology Physician Name | Role | Phone | [...] | | | MARIA VICTORIA BECERRIL | [place] [address] | | | | | [place] [address] | | | | | | [phone] | | | +--------+ + + + [...] 2020 | Visit | | [address] [facility] | | | | | | [address] [place] | | | | | | [address] | | | | | | | [...]
--- OUTSIDE RECORDS SUMMARY | ~2020-05-08 | XMS | Encounter Summary ---
Demographics + + + | Address | [address] | | | [place] [address] | + + + | Home Phone [...] Team Providers + +------+ + | Care Vp Name | Role | Phone | + +------+ + | Rahul Silva MD | PCP | | + +------+ + Encounter Details +--------+ + + + + | Date | Type | Department | Care Team | Description | +--------+ + + + + | 06/23/ | Orders Only | [facility] | Farrukh Acuna MD | | | 2018 | | NEPHROLOGY [place] | [address] [place] | | | | | [address] [place] | [address] [place], [place] | | | | | [address] [place], [place] | [address] | | | | | [address] | | | | | | [phone] | | | +--------+ + + + [...] | 06/05/ | Office | Nephrology | aFrrukh Acuna MD | | | 2020 | Visit | | [address] [facility] | | | | | | [address] [place] | | | | | | [address] | | | | | | | [...]
--- OUTSIDE RECORDS SUMMARY | ~2020-05-08 | XMS | Encounter Summary ---
Demographics + + + | Address | [address] | | | [place] [address] | + + + | Home Phone [...] Team Providers + +------+ + | Care Shipping Assistant Name | Role | Phone | [...] | | | MARIA VICTORIA BECERRIL | [place] [address] | | | | | [place] [address] | | | | | | [phone] | | | +--------+ + + + [...] | | [address] [facility] | | | | | | 160 [place] | | | | | | [address] | | | | | | | | +--------+---------+ + + + documented as of this encounter Procedures + +--------+ + + + | Procedure Name | Priori | Date/Time | Associated Diagnosis | Comments | | | ty | | | | + +--------+ + + + | XR CHEST AP PORTABLE | Routin | 04/06/2015 | | Results for this | | | e | 12:00 AM | | procedure are in the | | | | PDT | | results section. | + +--------+ + + + documented in this encounter Results XR Chest AP Portable (04/06/2015 12:00 AM PDT) + + | Specimen [...]
--- OUTSIDE RECORDS SUMMARY | ~2020-05-08 | XMS | Encounter Summary ---
Demographics + + + | Address | [address] | | | [place] [address] | + + + | Home Phone [...] Team Providers + +------+ + | Care Supply Chain Business Analyst Name | Role | Phone | + +------+ + | Rahul Silva MD | PCP | | + +------+ + Encounter Details +--------+ + + + + | Date | Type | Department | Care Team | Description | +--------+ + + + + | 11/10/ | Orders Only | [facility] | Conversion | | | 2017 | | NEPHROLOGY [place] | Transaction, | | | | | [address] | Provider Unknown | | | | | [address] [place] | | | | | | [address] | (Fax) | | | | | [phone] | | | +--------+ + + + [...] 2020 | Visit | | [facility] [address] [facility] | | | | | | 160 [facility] | | | | | | [address] | | | | | | | [...]
--- OUTSIDE RECORDS SUMMARY | ~2020-05-08 | XMS | Encounter Summary ---
Demographics + + + | Address | [address] | | | [place] [address] | + + + | Home Phone [...] Team Providers + +------+ + | Care Mold Washer Name | Role | Phone | + +------+ + | Rahul Silva MD | PCP | | + +------+ + Encounter Details +--------+ + + + + | Date | Type | Department | Care Team | Description | +--------+ + + + + | 11/10/ | Orders Only | [facility] | Conversion | | | 2017 | | NEPHROLOGY [place] | Transaction, | | | | | [address] | Provider Unknown | | | | | [address] [place] | | | | | | [address] | (Fax) | | | | | [phone] | | | +--------+ + + + [...] 2020 | Visit | | [facility] | | | | | | [facility] | | | | | | [address] | | | | | | | [...]
--- OUTSIDE RECORDS SUMMARY | ~2020-05-08 | XMS | Encounter Summary ---
Demographics + + + | Address | [address] | | | [place] [address] | + + + | Home Phone [...] Providers + +------+ + | Care Machine Steak Tenderizer Name | Role | Phone | + +------+ + | Rahul Silva MD | PCP | | + +------+ + Reason for Visit +--------+ + | Reason | Comments | +--------+ + | Other | Patient call | +--------+ + Encounter Details +--------+ + + + + | Date | Type | Department | Care Team | Description | +--------+ + + + + | 11/17/ | Telephone | [facility] | Farrukh Acuna MD | Other (Patient call | | 2019 | | NEPHROLOGY [place] | [address] [place] | ) | | | | [address] [place] | [address] [place], [place] | | | | | 160 [place], [place] | [address] | | | | | [address] | | | | | | [phone] | | | +--------+ + + + [...] 2020 | Visit | | [address] [facility] | | | | | | [address] [place] | | | | | | [address] | | | | | | | | +--------+---------+ + + + documented as of this encounter Visit Diagnoses Not on filedocumented in this encounter"
--- OUTSIDE RECORDS SUMMARY | ~2020-05-08 | XMS | Encounter Summary ---
Demographics + + + | Address | [address] | | | [place] [address] | + + + | Home Phone [...] Team Providers + +------+ + | Care Military Police Officer Name | Role | Phone | [...] + + | 03/14/ | Refill | [facility] | Farrukh Acuna MD | Medication Refill | | 2020 | | NEPHROLOGY [place] | [address] [place] | | | | | [address] | [address] [place], [place] | | | | | [address] | [address] | | | | | [place], [place] | | | | | | [address] | | | | | | [phone] | | | +--------+--------+ + + + [...] | Visit | | [address] [facility] | | | | | | [address] [place] | | | | | | [address] | | | | | | | | +--------+---------+ + + + documented as of this encounter Visit Diagnoses + + | Diagnosis | + + | Essential hypertension - Primary Unspecified essential hypertension | + + | Persistent proteinuria Proteinuria | + + | CKD (chronic kidney disease) stage 5, GFR less than 15 ml/min ([facility]) Chronic kidney | | disease, Stage V | + + documented in this encounter"
--- OUTSIDE RECORDS SUMMARY | ~2020-05-08 | XMS | Encounter Summary ---
Demographics + + + | Address | [address] | | | [place] [address] | + + + | Home Phone [...] Team Providers + +------+ + | Care Wort Extractor Name | Role | Phone | + +------+ + | Mehrdad Bergman | PCP | | + +------+ + Reason for Visit +--------+ + | Reason | Comments | +--------+ + | Other | FANTASMA hansen order sent to [facility] confirmation received | +--------+ + Encounter Details +--------+ + + + + | Date | Type | Department | Care Team | Description | +--------+ + + + + | 03/29/ | Documentati | [facility] | Alfred, | Other (IV fercesilia | | 2020 | on | NEPHROLOGY [place] | Charlie Abdi | order sent to [facility] | | | | [address] | Hand Cigar Making Supervisor | IVT confirmation | | | | [address] | | received) | | | | [place], [place] | | | | | | [address] | | | | | | [phone] | | | +--------+ + + + [...] 2020 | Visit | | [facility] [address] [facility] | | | | | | [address] [place] | | | | | | [address] | | | | | | | | +--------+---------+ + + + documented as of this encounter Visit Diagnoses Not on filedocumented in this encounter"
--- OUTSIDE RECORDS SUMMARY | ~2020-05-08 | XMS | Encounter Summary ---
Demographics + + + | Address | [address] | | | [place] [address] | + + + | Home Phone [...] Team Providers + +------+ + | Care Dewaxer Name | Role | Phone | + [...] [address] | | | | | [place], [place] | [place] [address] | | | | | [address] | | | | | | [phone] | (Fax) | | +--------+ + + [...] 2020 | Visit | | [address] [facility] | | | | | | 160 [facility] [place] | | | | | | [address] | | | | | | | [...] pressures of 5-10mmHg. MEASUREMENTS | | | Desulphuring Operator: MARLENA Authenticated by: KAI BIRMINGHAM MD Report | | | Date/Time: 03-27-2016 13:39:46 | | + + + + + | Procedure Note | + + | Meir Jama - 07/22/2019 7:56 PM PDT Patient Name: Demetra Andujar of | | : 1940 Performing Physician: KAI BIRMINGHAM | | INDICATIONS H | | [...] venous pressures of 5-10mmHg. | | MEASUREMENTS Desulphuring Operator: DHAuthenticated by: KAI BIRMINGHAM [facility] [place] | | Date/Time: 03-27-2016 13:39:46 IMPRESSION: 1. [...] | |MEASUREMENTS | | | | | |Desulphuring Operator: MARLENA | |Authenticated by: KAI BIRMINGHAM MD | [...]
--- OUTSIDE RECORDS SUMMARY | ~2020-05-08 | XMS | Encounter Summary ---
Demographics + + + | Address | [address] | | | [place] [address] | + + + | Home Phone [...] Team Providers + +------+ + | Care Teamcenter Solution Architect Name | Role | Phone | [...] | | | MARIA VICTORIA BECERRIL | [place] [address] | | | | | [place] [address] | | | | | | [phone] | | | +--------+ + + + [...] [place] | | | | | | [address] | | | | | | | | +--------+---------+ + + + documented as of this encounter Procedures + +--------+ + + + | Procedure Name | Priori | Date/Time | Associated Diagnosis | Comments | | | ty | | | | + +--------+ + + + | XR CHEST 2 VIEWS | Routin | 07/11/2017 | | Results for this | | | e | 12:00 AM | | procedure are in the | | | | PDT | | results section. | + +--------+ + + + documented in this encounter Results XR Chest 2 Vws (07/11/2017 12:00 AM PDT) + + | Specimen [...]
--- OUTSIDE RECORDS SUMMARY | ~2020-05-08 | XMS | Encounter Summary ---
Demographics + + + | Address | [address] | | | [place] [address] | + + + | Home Phone [...] Providers + +------+ + | Care Field Placement Director Name | Role | Phone | [...] + + | 09/23/ | Telephone | [facility] | Brian Orosco MD | Advice Only | | 2019 | | VASCULAR SURGERY | [address] | | | | | [address] [place] | [place], [place] | | | | | [place], [place] | [address] | | | | | [address] | [phone] | | | | | [phone] | | | +--------+ + + + [...] [place] | | | | | | [address] | | | | | | (Fax) | | +--------+---------+ + + + documented as of this encounter Visit Diagnoses Not on filedocumented in this encounter"
--- OUTSIDE RECORDS SUMMARY | ~2020-05-08 | XMS | Encounter Summary ---
Demographics + + + | Address | [address] | | | [place] [address] | + + + | Home Phone [...] Team Providers + +------+ + | Care Sort Supervisor Name | Role | Phone | [...] [address] | | | | | [place], [place] | [place], [place] | | | | | [address] | [address] | | | | | [phone] | [phone] | | | | | | | [...] | | | | | | [facility] | | | | | | [address] | | | | | | | [...]
--- OUTSIDE RECORDS SUMMARY | ~2020-05-08 | XMS | Encounter Summary ---
Demographics + + + | Address | [address] | | | [place] [address] | + + + | Home Phone [...] Author + + + | Author | [facility] | + + + | Organization | [facility] | + + + | Address | Unknown | + + + | Phone | Unavailable | + + + Support + + + + + | Name | Relationship | Address | Phone | + + + + + | Darci Andujar | [address] | [place] | | | | | [address] | | + + + + + Care Team Providers + +------+ + | Care Consultant In Ergonomics And Safety Name | Role | Phone | + [...] [address] | | | | | | [place] | | | | | | [address] | | | +--------+ + + + [...] as of this encounter Discharge Summaries Interface, Cardiac Monitor In - 04/01/2007 5:08 AM PDT [address] [address] [facility] MEDICAL SUMMARY OF HOSPITALIZATION Med Rec No.: [...] cc: RUBIA KNAPP MD [address] [facility] [id number] documented in this encounter Plan of Treatment Not on filedocumented as of this encounter Visit Diagnoses Not on filedocumented in this encounter"
--- OUTSIDE RECORDS SUMMARY | ~2020-05-08 | XMS | Encounter Summary ---
Demographics + + + | Address | [address] | | | [place] [address] | + + + | Home Phone [...] Providers + +------+ + | Care Mold Puller Name | Role | Phone | [...] + + | 09/23/ | Telephone | [facility] | Brian Orosco MD | Advice Only | | 2019 | | VASCULAR SURGERY | [address] | | | | | [address] [place] | [place], [place] | | | | | [place], [place] | [address] | | | | | [address] | [phone] | | | | | [phone] | | | +--------+ + + + [...] [place] | | | | | | [address] | | | | | | (Fax) | | +--------+---------+ + + + documented as of this encounter Visit Diagnoses Not on filedocumented in this encounter"
--- OUTSIDE RECORDS SUMMARY | ~2020-05-08 | XMS | Encounter Summary ---
Demographics + + + | Address | [address] | | | [place] [address] | + + + | Home Phone [...] Team Providers + +------+ + | Care Scout Sniper Name | Role | Phone | + +------+ + | Rahul Silva MD | PCP | | + +------+ + Encounter Details +--------+ + + + + | Date | Type | Department | Care Team | Description | +--------+ + + + + | 01/26/ | Orders Only | [facility] | Conversion | | | 2014 | | NEPRHOLOGY [place] | Transaction, | | | | | [address] | Provider Unknown | | | | | [address] [place], [place] | | | | | | [address] | (Fax) | | | | | [phone] | | | +--------+ + + + [...] [place] | | | | | | [address] | | | | | | | [...] + + + | Red Blood | 3.68 (A) | 3.8 - 5.7 [...] | | | LAB | | | [facility] | | | | | + + [...]
--- OUTSIDE RECORDS SUMMARY | ~2020-05-08 | XMS | Encounter Summary ---
Demographics + + + | Address | [address] | | | [place] [address] | + + + | Home Phone [...] Team Providers + +------+ + | Care Medication Manager Name | Role | Phone | [...] + + | 05/04/ | Refill | [facility] | Farrukh Acuna MD | Medication Refill | | 2020 | | NEPHROLOGY [place] | [address] [place] | | | | | [address] | [address] [place], [place] | | | | | [address] | [address] | | | | | [place], [place] | | | | | | [address] | | | | | | [phone] | | | +--------+--------+ + + + [...] 2020 | Visit | | [address] [facility] | | | | | | [address] [place] | | | | | | [address] | | | | | | | [...]
--- OUTSIDE RECORDS SUMMARY | ~2020-05-08 | XMS | Encounter Summary ---
Demographics + + + | Address | [address] | | | [place] [address] | + + + | Home Phone [...] Team Providers + +------+ + | Care Photography Manager Name | Role | Phone | [...] | [address] | [address] [facility] [address] | | | | | [place], [place] | [address] [place] | | | | | [address] | [address] | | | | | [phone] | | | +--------+ + + + [...] [place] | | | | | | [address] | | | | | | | [...]
--- OUTSIDE RECORDS SUMMARY | ~2020-05-08 | XMS | Encounter Summary ---
Demographics + + + | Address | [address] | | | [place] [address] | + + + | Home Phone [...] Team Providers + +------+ + | Care Sample Color Maker Name | Role | Phone | + +------+ + | Rahul Silva MD | PCP | | + +------+ + Reason for Visit +--------+ + | Reason | Comments | +--------+ + | Other | Tera F/U | +--------+ + Encounter Details +--------+ + + + + | Date | Type | Department | Care Team | Description | +--------+ + + + + | 10/20/ | Telephone | [facility] | Alfred, | Mary (Tera F/U) | | 2018 | | NEPHROLOGY [place] | [facility] | | | | | [address] | Gold Letterer | | | | | [address] | | | | | | [place] | | | | | | [address] | | | | | | [phone] | | | +--------+ + + + [...] | | | | | | [facility] [place] | | | | | | [address] | | | | | | | | +--------+---------+ + + + documented as of this encounter Visit Diagnoses Not on filedocumented in this encounter"
--- OUTSIDE RECORDS SUMMARY | ~2020-05-08 | XMS | Encounter Summary ---
Demographics + + + | Address | [address] | | | [place] [address] | + + + | Home Phone [...] Team Providers + +------+ + | Care Tool And Die Manager Name | Role | Phone | [...] RN | | | | | [address] | | | | | | [place] | | | | | | [address] | | | | | | [phone] | | | +--------+ + + + [...] | Visit | | [address] [facility] | | | | | | [address] [place] | | | | | | [address] | | | | | | | | +--------+---------+ + + + documented as of this encounter Visit Diagnoses Not on filedocumented in this encounter"
--- OUTSIDE RECORDS SUMMARY | ~2020-05-08 | XMS | Encounter Summary ---
Demographics + + + | Address | [address] | | | [place] [address] | + + + | Home Phone [...] Team Providers + +------+ + | Care Wheel Assembler Name | Role | Phone | [...] | | | MARIA VICTORIA BECERRIL | [place] [address] | | | | | [place] [address] | | | | | | [phone] | | | +--------+ + + + [...] 2019 | Visit | | [facility] [address] [facility] | | | | | | [address] [place] | | | | | | [address] | | | | | | | [...]
--- OUTSIDE RECORDS SUMMARY | ~2020-05-08 | XMS | Encounter Summary ---
Demographics + + + | Address | [address] | | | [place] [address] | + + + | Home Phone [...] Team Providers + +------+ + | Care Solar Project Engineer Name | Role | Phone [...] [address] | | | | | [place], [place] | [place], [place] | | | | | [address] | [address] | | | | | [phone] | [phone] | | | | | | | [...] | Visit | | [address] [facility] | | | | | | [address] [facility] | | | | | | [address] | | | | | | | [...]
--- OUTSIDE RECORDS SUMMARY | ~2020-05-08 | XMS | Encounter Summary ---
Demographics + + + | Address | [address] | | | [place] [address] | + + + | Home Phone [...] Providers + +------+ + | Care Director Systems Name | Role | Phone | + +------+ + | Rahul Silva MD | PCP | | + +------+ + Encounter Details +--------+---------+ + + + | Date | Type | Department | Care Team | Description | +--------+---------+ + + + | 10/04/ | Office | [facility] | Farrukh Acuna MD | CKD (chronic kidney | | 2019 | Visit | NEPHROLOGY [place] | [address] [place] | disease) stage 5, | | | | [address] | [address] [place], [place] | GFR less than 15 | | | | [address] | [address] | ml/min (HCC) | | | | [place], [place] | | (Primary Dx); Anemia | | | | [address] | | of chronic kidney | | | | [phone] | | failure, stage 5 | | | | | | (HCC); Essential | | | | | | hypertension; Iron | | | | | | deficiency; | | | | | | Secondary | | | | | | hyperparathyroidism | | | | | | ([facility]); 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 He was admitted to [facility] for 3 nights in July 2016 [...] 19.5 (A) 05/27/2019 LABPROT 2,445.6 (A) 03/01/2019 [id number] 10/08/2018 Assessment: Mr. Andujar is a 78 y.o. male patient with stage IV CKD on a background of diabetes & hypert ension and recent hospitalization for C-diff and hehydration. The most likely pathology here is that of diabetic nephropathy +/- hypertensive nephrosclerosis/arteriolosclerosis. He was hospitalized in 10/2016 with severe pneumonia, severe ZEKE; needed RESPITE CARE PROVIDER for ~5 weeks b efore renal function [...] Also: I see no need for acute RESPITE CARE PROVIDER. I see no need to send him [...] 2019 | Visit | | [address] [facility] | | | | | | [address] [place], [place] | | | | | | [address] | | | | | | | | +--------+---------+ + + + documented as of this encounter Visit Diagnoses + + | Diagnosis | + + | CKD (chronic kidney disease) stage 5, GFR less than 15 ml/min ([facility]) - Primary Chronic | [...]
--- OUTSIDE RECORDS SUMMARY | ~2020-05-08 | XMS | Encounter Summary ---
Demographics + + + | Address | [address] | | | [place] [address] | + + + | Home Phone [...] Providers + +------+ + | Care Air Bag Buffer Name | Role | Phone | + +------+ + PCP | Unavailable | + +------+ + Encounter Details +--------+ + + + + | Date | Type | Department | Care Team | Description | +--------+ + + + + | 12/31/ | [facility] | [facility] | | | | 2000 | Encounter | MED CTR XRAY [address] | | | | | | [address]ist [address] | | | | | | [place] [address] | | | | | | [phone] | | | +--------+ + + + [...] [place] | | | | | | [address] | | | | | | | | +--------+---------+ + + + documented as of this encounter Visit Diagnoses Not on filedocumented in this encounter"
--- OUTSIDE RECORDS SUMMARY | ~2020-05-08 | XMS | Encounter Summary ---
Demographics + + + | Address | [address] | | | [place] [address] | + + + | Home Phone [...] Team Providers + +------+ + | Care Docking Pilot Name | Role | Phone | [...] + + | 10/19/ | Documentati | [facility] | Simon, | Results (09/22/19) | | 2019 | on | NEPHROLOGY [place] | [facility] | | | | | [address] | Senior Net Web Developer | | | | | [address] | | | | | | [place] | | | | | | [address] | | | | | | [phone] | | | +--------+ + + + [...] 2020 | Visit | | [facility] [address] [facility] | | | | | | [address] [place] | | | | | | [address] | | | | | | (Fax) [...]
--- OUTSIDE RECORDS SUMMARY | ~2020-05-08 | XMS | Encounter Summary ---
Demographics + + + | Address | [address] | | | [place] [address] | + + + | Home Phone [...] Team Providers + +------+ + | Care Specialties Operator Name | Role | Phone | + +------+ + | Rahul Silva MD | PCP | | + +------+ + Encounter Details +--------+ + + + + | Date | Type | Department | Care Team | Description | +--------+ + + + + | 01/23/ | Orders Only | [facility] | Collin Mirza, | | | 2015 | | NEPHROLOGY [place] | [address] | | | | | [address] [place] | [address] | | | | | [address] [place], [place] | [place] | | | | | [address] | [address] | | | | | [phone] | | | | | | | [...] 2019 | Visit | | [address] [facility] | | | | | | [address] [place], [place] | | | | | | [address] | | | | | | | [...] | | | LAB | | | [facility] | | | | | + [...]
--- OUTSIDE RECORDS SUMMARY | ~2020-05-08 | XMS | Encounter Summary ---
Demographics + + + | Address | [address] | | | [place] [address] | + + + | Home Phone [...] Team Providers + +------+ + | Care Distillery Manager Name | Role | Phone | + +------+ + | Mehrdad Bergman | PCP | | + +------+ + Reason for Visit +--------+ + | Reason | Comments | +--------+ + | Other | FANTASMA hansen and maria t question | +--------+ + Encounter Details +--------+ + + + + | Date | Type | Department | Care Team | Description | +--------+ + + + + | 04/06/ | Telephone | [facility] | Farrukh Acuna MD | Other (IV feraheme | | 2020 | | NEPHROLOGY [place] | [address] [place] | and aranesp | | | | [address] [place] | [address] [place], [place] | question) | | | | [address] [place], [place] | [address] | | | | | [address] | | | | | | [phone] | | | +--------+ + + + [...] 2019 | Visit | | [address] [facility] | | | | | | [address] [place] | | | | | | [address] | | | | | | | | +--------+---------+ + + + documented as of this encounter Visit Diagnoses Not on filedocumented in this encounter"
--- OUTSIDE RECORDS SUMMARY | ~2020-05-08 | XMS | Encounter Summary ---
Demographics + + + | Address | [address] | | | [place] [address] | + + + | Home Phone [...] Team Providers + +------+ + | Care Photogrammetric Technician Name | Role | Phone | [...] N Young | | | | | [place], [place] | [place], [place] | | | | | [address] | [address] | | | | | [phone] | | | | | | | [...] 2020 | Visit | | [address] [facility] | | | | | | [address] [facility] | | | | | | [address] | | | | | | | [...]
--- OUTSIDE RECORDS SUMMARY | ~2020-05-08 | XMS | Encounter Summary ---
Demographics + + + | Address | [address] | | | [place] [address] | + + + | Home Phone [...] Team Providers + +------+ + | Care Space And Missile Operations Spacelift Name | Role | Phone | + +------+ + | Rahul Silva MD | PCP | | + +------+ + Encounter Details +--------+ + + + + | Date | Type | Department | Care Team | Description | +--------+ + + + + | 07/18/ | Orders Only | [facility] | Conversion | | | 2015 | | NEPHROLOGY [place] | Transaction, | | | | | [address] [facility] | Provider Unknown | | | | | [place] [address] [place] | [phone] | | | | | [address] | | | | | | [phone] | | | +--------+ + + + [...] 2020 | Visit | | [address] [facility] [place] | | | | | | [address] [place], [place] | | | | | | [address] | | | | | | | [...] - 1.030 | EXTERNAL | | | [place], | | | LAB | | | [...] + + + | Red Blood | 3.48 (A) | 4.3 - 5.7 [...]
--- OUTSIDE RECORDS SUMMARY | ~2020-05-08 | XMS | Encounter Summary ---
Demographics + + + | Address | [address] | | | [place] [address] | + + + | Home Phone [...] Team Providers + +------+ + | Care Primer Assembler Name | Role | Phone | [...] N Young | | | | | [place], [place] | [place], [place] | | | | | [address] | [address] | | | | | [phone] | | | | | | | [...] | | | | | | [address] [facility] | | | | | | [address] | | | | | | | [...]
--- OUTSIDE RECORDS SUMMARY | ~2020-05-08 | XMS | Encounter Summary ---
Demographics + + + | Address | [address] | | | [place] [address] | + + + | Home Phone [...] Team Providers + +------+ + | Care Swage Tender Name | Role | Phone | [...] N Young | | | | | [place], [place] | [place], [place] | | | | | [address] | [address] | | | | | [phone] | [phone] | | | | | | | [...] | | | | | | [address] [facility] | | | | | | [address] | | | | | | | [...]
--- OUTSIDE RECORDS SUMMARY | ~2020-05-08 | XMS | Encounter Summary ---
Demographics + + + | Address | [address] | | | [place] [address] | + + + | Home Phone [...] Team Providers + +------+ + | Care Rn Medical Inpatient Services Name | Role | Phone | [...] + + | 11/08/ | Documentati | [facility] | Simon, | Results (10/10/19) | | 2019 | on | NEPHROLOGY [place] | [facility] | | | | | [address] | Grab Operator | | | | | [address] | | | | | | [place] | | | | | | [address] | | | | | | [phone] | | | +--------+ + + + [...] 2020 | Visit | | [address] [facility] | | | | | | [address] [place], [place] | | | | | | [address] | | | | | | | [...]
--- OUTSIDE RECORDS SUMMARY | ~2020-05-08 | XMS | Encounter Summary ---
Demographics + + + | Address | [address] | | | [place] [address] | + + + | Home Phone [...] Team Providers + +------+ + | Care Research Development Director Name | Role | Phone | [...] N Young | | | | | [place], [place] | [place], [place] | | | | | [address] | [address] | | | | | [phone] | | | | | | | [...] | | | | | [address] [facility] | | | | | | [address] | | | | | | | | +--------+---------+ + + + documented as of this encounter Procedures + +--------+ + + + | Procedure Name | Priori | Date/Time | Associated Diagnosis | Comments | | | ty | | | | + +--------+ + + + | EXTERNAL LAB: CBC | Routin | 11/08/2016 | | Results [...] + + + | Red Blood | 2.58 (L) | 4.20 - 5.70 | EXTERNAL | | | Cells | | 10*6/uL | LAB | | | Counted | [...]
--- OUTSIDE RECORDS SUMMARY | ~2020-05-08 | XMS | Encounter Summary ---
Demographics + + + | Address | [address] | | | [place] [address] | + + + | Home Phone | | + + + | Preferred Language | Unknown | + + + | Marital Status | | + + + | Cheondoism Affiliation | 1077 | + + + | Race | Unknown | + + + | Ethnic Group | Unknown | + + + Author + + + | Author | [facility] | | | and [place] | + + + | Organization | [facility] | | [...] Providers + +------+ + | Care Inventory Specialist Name | Role | Phone | [...] + + | 09/01/ | Telephone | [facility] | Brian Orosco MD | Advice Only | | 2019 | | VASCULAR SURGERY | [address] | (surgery) | | | | [address] [place] | [place], [place] | | | | | [place], [place] | [address] | | | | | [address] | [phone] | | | | | [phone] | | | +--------+ + + + [...] | | | | [address] [facility] | | | | | | [address] | | | | | | | | +--------+---------+ + + + documented as of this encounter Visit Diagnoses Not on filedocumented in this encounter"
--- OUTSIDE RECORDS SUMMARY | ~2020-05-08 | XMS | Encounter Summary ---
Demographics + + + | Address | [address] | | | [place] [address] | + + + | Home Phone [...] Providers + +------+ + | Care Loan Officer Assistant Name | Role | Phone | + +------+ + | Rahul Silva MD | PCP | | + +------+ + Encounter Details +--------+ + + + + | Date | Type | Department | Care Team | Description | +--------+ + + + + | 06/15/ | Orders Only | [facility] | Conversion | | | 2019 | | NEPHROLOGY [place] | Transaction, | | | | | [address] | Provider Unknown | | | | | [address] [place] | | | | | | [address] | (Fax) | | | | | [phone] | | | +--------+ + + + [...] 2020 | Visit | | [address] [facility] [place] | | | | | | [address] [place] | | | | | | [address] | | | | | | | [...]
--- OUTSIDE RECORDS SUMMARY | ~2020-05-08 | XMS | Encounter Summary ---
Demographics + + + | Address | [address] | | | [place] [address] | + + + | Home Phone [...] Team Providers + +------+ + | Care Loom Repairer Name | Role | Phone | + +------+ + | Rahul Silva MD | PCP | | + +------+ + Encounter Details +--------+ + + + + | Date | Type | Department | Care Team | Description | +--------+ + + + + | 08/19/ | Orders Only | [facility] | Farrukh Acuna MD | | | 2018 | | NEPHROLOGY [place] | [address] [place] | | | | | [address] [place] | [address] [place], [place] | | | | | [address] [place], [place] | [address] | | | | | [address] | | | | | | [phone] | | | +--------+ + + + [...] | Visit | | [address] [facility] | | | | | | [address] [place] | | | | | | [address] | | | | | | | [...] + + + | Red Blood | 3.4 (A) | 4.3 - 5.7 [...]
--- OUTSIDE RECORDS SUMMARY | ~2020-05-08 | XMS | Encounter Summary ---
Demographics + + + | Address | [address] | | | [place] [address] | + + + | Home Phone [...] [place] | | | | | [address] | | + + + + + Care Team Providers + +------+ + | Care Crane Operator Cab Name | Role | Phone | + [...] Clinic | | | | | | [facility], [address] | | | | | | [place], [place] | | | | | | [address] | | | | | | [phone] | | | +--------+ + + + [...] as of this encounter Progress Notes Interface, Chemical Project Engineer In - 12/25/2006 5:00 AM [facility] CL[facility] DATE: 03/16/98 PLASTIC SURGERY CLINIC SUBJECTIVE: [...] in the near future. Galo Arora M.D. Patternmaker Helper, Division of Plastic & Reconstructive Surgery AYDEE/alfred documented in this encounter Plan of Treatment Not on filedocumented as of this encounter Visit Diagnoses Not on filedocumented in this encounter"
--- OUTSIDE RECORDS SUMMARY | ~2020-05-08 | XMS | Encounter Summary ---
Demographics + + + | Address | [address] | | | [place] [address] | + + + | Home Phone [...] Providers + +------+ + | Care Transportation Job Titles Name | Role | Phone | + [...] N Young | | | | | [place], [place] | [place], [place] | | | | | [address] | [address] | | | | | [phone] | [phone] | | | | | | | [...] | | | | [address] [facility] | | | | | | [address] | | | | | | | [...]
--- OUTSIDE RECORDS SUMMARY | ~2020-05-08 | XMS | Encounter Summary ---
Demographics + + + | Address | [address] | | | [place] [address] | + + + | Home Phone [...] Providers + +------+ + | Care Customer Service Analyst Name | Role | Phone | + +------+ + | Rahul Silva MD | PCP | | + +------+ + Encounter Details +--------+ + + + + | Date | Type | Department | Care Team | Description | +--------+ + + + + | 11/27/ | Orders Only | [facility] | Conversion | | | 2017 | | NEPHROLOGY [place] | Transaction, | | | | | [address] | Provider Unknown | | | | | [address] [place] | | | | | | [address] | (Fax) | | | | | [phone] | | | +--------+ + + + [...] | | | | | [address] [facility] | | | | | | [address] | | | | | | | [...]
--- OUTSIDE RECORDS SUMMARY | ~2020-05-08 | XMS | Encounter Summary ---
Demographics + + + | Address | [address] | | | [place] [address] | + + + | Home Phone [...] Team Providers + +------+ + | Care Sinter Machine Operator Name | Role | Phone | + +------+ + | Rahul Silva MD | PCP | | + +------+ + Encounter Details +--------+ + + + + | Date | Type | Department | Care Team | Description | +--------+ + + + + | 09/18/ | Orders Only | [facility] | Conversion | | | 2018 | | NEPHROLOGY [place] | Transaction, | | | | | [address] | Provider Unknown | | | | | [address] [place] | | | | | | [address] | (Fax) | | | | | [phone] | | | +--------+ + + + [...] | Visit | | [address] [facility] | | | | | | [address] [facility] | | | | | | [address] | | | | | | | [...]
--- OUTSIDE RECORDS SUMMARY | ~2020-05-08 | XMS | Encounter Summary ---
Demographics + + + | Address | [address] | | | [place] [address] | + + + | Home Phone [...] Team Providers + +------+ + | Care Endoscopy Technician Name | Role | Phone | [...] | Transaction, | | | | | [place], [place] | Provider Unknown | | | | | [address] | | | | | | [phone] | | | +--------+ + + + [...] 2020 | Visit | | [address] [facility] | | | | | | [address] [place] | | | | | | [address] | | | | | | | | +--------+---------+ + + + documented as of this encounter Procedures + +--------+ + + + | Procedure Name | Priori | Date/Time | Associated Diagnosis | Comments | | | ty | | | | + +--------+ + + + | EXTERNAL LAB: CBC | Routin | 11/13/2016 | | Results [...] + + | Red Blood | 2.98 (L) | 4.20 - 5.70 [...]
--- OUTSIDE RECORDS SUMMARY | ~2020-05-08 | XMS | Encounter Summary ---
Demographics + + + | Address | [address] | | | [place] [address] | + + + | Home Phone [...] Providers + +------+ + | Care Career Law Clerk Name | Role | Phone | [...] Young | | | | | [place], [place] | [place], [place] | | | | | [address] | [address] | | | | | [phone] | [phone] | | | | | | | [...] HOSPITAL[facility]HA | | | | | | [address] | | | | | | | [...]
--- OUTSIDE RECORDS SUMMARY | ~2020-05-08 | XMS | Encounter Summary ---
Demographics + + + | Address | [address] | | | [place] [address] | + + + | Home Phone [...] Team Providers + +------+ + | Care Hydrogenation Still Operator Name | Role | Phone | + +------+ + | Rahul Silva MD | PCP | | + +------+ + Encounter Details +--------+ + + + + | Date | Type | Department | Care Team | Description | +--------+ + + + + | 10/27/ | Orders Only | [facility] | Conversion | | | 2016 | | NEPHROLOGY [place] | Transaction, | | | | | [address] | Provider Unknown | | | | | [address] [place] | | | | | | [address] | (Fax) | | | | | [phone] | | | +--------+ + + + [...] | Visit | | [address] [facility] | | | | | | [address] [facility] [place] | | | | | | [address] | | | | | | | [...]
--- OUTSIDE RECORDS SUMMARY | ~2020-05-08 | XMS | Encounter Summary ---
Demographics + + + | Address | [address] | | | [place] [address] | + + + | Home Phone [...] Team Providers + +------+ + | Care Physician Relations Manager Name | Role | Phone | [...] + + | 03/14/ | Refill | [facility] | Farrukh Acuna MD | Medication Refill | | 2020 | | NEPHROLOGY [place] | [address] [place] | | | | | [address] | [address] [place], [place] | | | | | [address] | [address] | | | | | [place], [place] | | | | | | [address] | | | | | | [phone] | | | +--------+--------+ + + + [...] | | [address] [facility] | | | | | | [address] [place] | | | | | | [address] | | | | | | | | +--------+---------+ + + + documented as of this encounter Visit Diagnoses + + | Diagnosis | + + | Essential hypertension Unspecified essential hypertension | + + | Persistent proteinuria Proteinuria | + + | CKD (chronic kidney disease) stage 5, GFR less than 15 ml/min ([facility]) Chronic kidney | | disease, Stage V | + + documented in this encounter"
--- OUTSIDE RECORDS SUMMARY | ~2020-05-08 | XMS | Encounter Summary ---
Demographics + + + | Address | [address] | | | [place] [address] | + + + | Home Phone [...] Team Providers + +------+ + | Care Financial Services Counselor Name | Role | Phone | [...] | [address] | [address] [facility] | | | | | [place], [place] | [address] [place] [address] | | | | | [address] | [address] | | | | | [phone] | | | +--------+ + + + [...] 2020 | Visit | | [address] [facility] | | | | | | [address] [place] | | | | | | [address] | | | | | | | [...]
--- OUTSIDE RECORDS SUMMARY | ~2020-05-08 | XMS | Encounter Summary ---
Demographics + + + | Address | [address] | | | [place] [address] | + + + | Home Phone [...] Team Providers + +------+ + | Care Moderate Needs Teacher Name | Role | Phone | + +------+ + | Rahul Silva MD | PCP | | + +------+ + Encounter Details +--------+ + + + + | Date | Type | Department | Care Team | Description | +--------+ + + + + | 03/01/ | Orders Only | [facility] | Conversion | | | 2019 | | NEPHROLOGY [place] | Transaction, | | | | | [address] | Provider Unknown | | | | | [address] [place] | | | | | | [address] | (Fax) | | | | | [phone] | | | +--------+ + + + [...] | | | | | | [address] [facility] | | | | | | [address] | | | | | | | [...] - 1.030 | EXTERNAL | | | [place], | | | LAB | | | [...] + + + | Red Blood | 3.21 (A) | 4.3 - 5.7 [...]
--- OUTSIDE RECORDS SUMMARY | ~2020-05-08 | XMS | Encounter Summary ---
Demographics + + + | Address | [address] | | | [place] [address] | + + + | Home Phone [...] Providers + +------+ + | Care Hospital Mortician Name | Role | Phone | + +------+ + | Rahul Silva MD | PCP | | + +------+ + Encounter Details +--------+ + + + + | Date | Type | Department | Care Team | Description | +--------+ + + + + | 07/17/ | Orders Only | [facility] | Conversion | | | 2016 | | NEPHROLOGY [place] | Transaction, | | | | | [address] | Provider Unknown | | | | | [address] [place] | | | | | | [address] | (Fax) | | | | | [phone] | | | +--------+ + + + [...] HOSPITAL[facility] | | | | | | [address] | | | | | | | [...]
--- OUTSIDE RECORDS SUMMARY | ~2020-05-08 | XMS | Encounter Summary ---
Demographics + + + | Address | [address] | | | [place] [address] | + + + | Home Phone [...] Team Providers + +------+ + | Care Fishing Captain Name | Role | Phone | [...] | | | stage 5, GFR | [address] | | | | | | less than | Phone: | | | | | | 15 ml/min | [phone] | | | | | | (HCC) | Fax: | | | | | | Procedures | [phone] | | | | | | VAS [...] + + | 10/20/ | Office | [facility] | Trisha Conner DNP | CKD (chronic kidney | | 2019 | Visit | VASCULAR SURGERY | [address] | disease) stage 5, | | | | [address] | [place], [place] | GFR less than 15 | | | | [place], [place] | [address] | ml/min (HCC) | | | | [address] | | (Primary Dx); AVF | | | | [phone] | | (arteriovenous | | | | [...] [facility] [address] [place] [address] Office: [phone] DATE OF VISIT: 10/20/2019 PATIENT NAME: Kavon Andujar : 1940; AGE: 79 y.o.; Sex:M PHONE NUMBER: ; ; PROVIDER: Trisha Conner DNP PRIMARY CARE / REFERRING PHYSICIAN: No ref. provider found / Rahul Silva MD / [address] / [place] [address] REASON FOR EVALUATION / CHIEF COMPLAINT: Vascular Surgery Postoperative Visit for AVF creation The patient presents today for a Vascular Surgery Postoperative Visit. The patient is statu s post right brachiocephalic AVF creation, which was performed on 09/10/2019 at the [facility] Operating Room. The patient is not having any pain. The patient denie s fever, wound drainage, increasing redness, pus, increasing pain, increasing swelling. Phys ical examination revealed surgical incision is healed. He has good thrills over the AVF site . Patient's search engine optimization consultant is Dr. Acuna. The patient is not [...] [facility] | | | | | | [address] [place], [place] | | | | | | [address] | | | | | | | [...] GFR less than 15 ml/min ([facility]) - Primary Chronic | | kidney disease, Stage V | + + | AVF (arteriovenous fistula) ([facility]) Arteriovenous fistula, acquired | + + documented in this encounter"
--- OUTSIDE RECORDS SUMMARY | ~2020-05-08 | XMS | Encounter Summary ---
Demographics + + + | Address | [address] | | | [place] [address] | + + + | Home Phone [...] Team Providers + +------+ + | Care Contact Center Professional Name | Role | Phone | [...] + + | 09/13/ | Telephone | [facility] | Terri Aguilar, | Follow-up | | 2018 | | VASCULAR SURGERY | [facility] | | | | | [address] | | | | | | E [facility] [place] | | | | | | [address] | | | | | | [phone] | | | +--------+ + + + [...] | | | | | | [address] [place] | | | | | | [address] | | | | | | | | +--------+---------+ + + + documented as of this encounter Visit Diagnoses Not on filedocumented in this encounter"
--- OUTSIDE RECORDS SUMMARY | ~2020-05-08 | XMS | Encounter Summary ---
Demographics + + + | Address | [address] | | | [place] [address] | + + + | Home Phone [...] Team Providers + +------+ + | Care Computational Scientist Name | Role | Phone | [...] | | | | disease not | [place], | [place], [place] | | | | | on chronic | [place] [address] | [address] | | | | | dialysis | Phone: | Phone: | | | | | ([facility]) | [phone] | [phone] | | | | | Hypertension | Fax: | Fax: | | | | | , | [phone] | [phone] | | | | | unspecified | | | | | | | type | | | +--------+ + + + + + Encounter Details +--------+ + + + + | Date | Type | Department | Care Team | Description | +--------+ + + + + | 07/28/ | Orders Only | [facility] | Farrukh Acuna MD | Iron deficiency | | 2019 | | NEPHROLOGY [place] | [address] [place] | (Primary Dx); Anemia | | | | [address] [place] | [address] [place], [place] | of chronic kidney | | | | [address] [place], [place] | [address] | failure, stage 5 | | | | [address] | | ([facility]); Stage 5 | | | | [phone] | | chronic kidney | | | | | | disease not on | | | | | | chronic dialysis | | | | | | ([facility]); Secondary | | | | | | hyperparathyroidism | | | | | | ([facility]); Hypertension, | | | | | [...] 2020 | Visit | | [address] [address] [facility] | | | | | | [address] [place] | | | | | | [address] | | | | | | (Fax) [...] dialysis | | | | | | ([facility]) Hypertension, | | | | | [...] hyperparathyroidism | | | | | | ([facility]) Hypertension, | | | | | | unspecified type | | + +------+--------+ + + + + +--------+ + + | Name | Type | Priori | Associated Diagnoses | Order Schedule | | | | ty | | | + + +--------+ + + | Ambulatory Referral | Outpatient | Routin | Stage 5 chronic | Ordered: 07/28/2019 | | to [facility] | Referral | e | kidney disease not | | | Surgery | | | on chronic dialysis | | | | | | ([facility]) Hypertension, | | | | | [...]
--- OUTSIDE RECORDS SUMMARY | ~2020-05-08 | XMS | Encounter Summary ---
Demographics + + + | Address | [address] | | | [place] [address] | + + + | Home Phone [...] Providers + +------+ + | Care Assistant Financial Accountant Name | Role | Phone | + +------+ + | Mehrdad Bergman | PCP | | + +------+ + Encounter Details +--------+ + + + + | Date | Type | Department | Care Team | Description | +--------+ + + + + | 03/28/ | Orders Only | [facility] | Farrukh Acuna MD | Essential | | 2019 | | NEPHROLOGY [place] | [address] [place] | hypertension | | | | [address] | [address] [place], [place] | (Primary Dx); Anemia | | | | [address] | [address] | of chronic kidney | | | | [place], [place] | | failure, stage 5 | | | | [address] | | (HCC); Persistent | | | | [phone] | | proteinuria; CKD | | | | | | (chronic kidney | | | | | | disease) stage 5, | | | | | | GFR less than 15 | | | | | | ml/min ([facility]) | +--------+ + + + + Social [...] 2020 | Visit | | [address] [facility] | | | | | | [address] [facility] [place] | | | | | | [address] | | | | | | | [...] | 03/28/2021 | | | | | ([facility]) Persistent | | | | | | [...] | 03/28/2021 | | | | | ([facility]) Persistent | | | | | | [...] | | | ([facility]) Persistent | | | | | | [...] | | | ([facility]) Persistent | | | | | | [...] | | | ([facility]) Persistent | | | | | | [...] | | | ([facility]) Persistent | | | | | | [...] | | | ([facility]) Persistent | | | | | | proteinuria CKD | | | | | | (chronic kidney | | | | | | disease) stage 5, | | | | | | GFR less than 15 | | | | | | ml/min ([facility]) | | + +------+--------+ + + documented as of this encounter Visit Diagnoses + + | Diagnosis | + + | Essential hypertension - Primary Unspecified essential hypertension | + + | Anemia of chronic kidney failure, stage 5 ([facility]) | + + | Persistent proteinuria Proteinuria | + + | CKD (chronic kidney disease) stage 5, GFR less than 15 ml/min ([facility]) Chronic kidney | | disease, Stage V | + + documented in this encounter"
--- OUTSIDE RECORDS SUMMARY | ~2020-05-08 | XMS | Encounter Summary ---
Demographics + + + | Address | [address] | | | [place] [address] | + + + | Home Phone [...] Providers + +------+ + | Care Special Day Class Teacher Name | Role | Phone | + +------+ + | Mehrdad Bergman | PCP | | + +------+ + Reason for Visit +--------+ + | Reason | Comments | +--------+ + | Other | FANATSMA hansen order sent to [facility] confirmation received | +--------+ + Encounter Details +--------+ + + + + | Date | Type | Department | Care Team | Description | +--------+ + + + + | 03/29/ | Documentati | [facility] | Alfred, | Other (IV fercesilia | | 2020 | on | NEPHROLOGY [place] | Charlie Abdi | order sent to [facility] | | | | [address] | Laundry Clerk | IVT confirmation | | | | [address] | | received) | | | | [place], [place] | | | | | | [address] | | | | | | [phone] | | | +--------+ + + + [...] [place] | | | | | | [address] | | | | | | | | +--------+---------+ + + + documented as of this encounter Visit Diagnoses Not on filedocumented in this encounter"
--- OUTSIDE RECORDS SUMMARY | ~2020-05-08 | XMS | Encounter Summary ---
Demographics + + + | Address | [address] | | | [place] [address] | + + + | Home Phone [...] Team Providers + +------+ + | Care Massage Therapy Instructor Name | Role | Phone | [...] [address] Young | | | | | [place], [place] | [place], [place] | | | | | [address] | [address] | | | | | [phone] | [phone] | | | | | | | [...] 2020 | Visit | | [address] [facility] | | | | | | [address] [facility] | | | | | | [address] | | | | | | | [...]
--- OUTSIDE RECORDS SUMMARY | ~2020-05-08 | XMS | Encounter Summary ---
Demographics + + + | Address | [address] | | | [place] [address] | + + + | Home Phone [...] Team Providers + +------+ + | Care Processing Specialist Name | Role | Phone | [...] Young | | | | | [place], [place] | [place], [place] | | | | | [address] | [address] | | | | | [phone] | | | | | | | [...] 2020 | Visit | | [address] [facility] | | | | | | [address] [facility] | | | | | | [address] | | | | | | | [...]
--- OUTSIDE RECORDS SUMMARY | ~2020-05-08 | XMS | Encounter Summary ---
Demographics + + + | Address | [address] | | | [place] [address] | + + + | Home Phone [...] Team Providers + +------+ + | Care Buildings Painter Name | Role | Phone | + +------+ + | Rahul Silva MD | PCP | | + +------+ + Encounter Details +--------+ + + + + | Date | Type | Department | Care Team | Description | +--------+ + + + + | 07/30/ | Orders Only | [facility] | Conversion | | | 2016 | | NEPRHOLOGY [place] | Transaction, | | | | | [address] | Provider Unknown | | | | | [address] [place], [place] | [phone] | | | | | [address] | (Fax) | | | | | [phone] | | | +--------+ + + + [...] CLINICRAD[place] | | | | | | [address] | | | | | | | [...] + + + | Red Blood | 3.39 (A) | 4.3 - 5.7 [...]
--- OUTSIDE RECORDS SUMMARY | ~2020-05-08 | XMS | Encounter Summary ---
Demographics + + + | Address | [address] | | | [place] [address] | + + + | Home Phone [...] Team Providers + +------+ + | Care Nutritionalist Name | Role | Phone | + +------+ + | Rahul Silva MD | PCP | | + +------+ + Encounter Details +--------+ + + + + | Date | Type | Department | Care Team | Description | +--------+ + + + + | 03/24/ | Orders Only | [facility] | Farrukh Acuna MD | | | 2017 | | NEPHROLOGY [place] | [address] [place] | | | | | [address] [place] | [address] [place], [place] | | | | | [address] [place], [place] | [address] | | | | | [address] | | | | | | [phone] | | | +--------+ + + + [...] 2020 | Visit | | [address] [facility] | | | | | | [address] [place] | | | | | | [address] | | | | | | | [...]
--- OUTSIDE RECORDS SUMMARY | ~2020-05-08 | XMS | Encounter Summary ---
Demographics + + + | Address | [address] | | | [place] [address] | + + + | Home Phone [...] Team Providers + +------+ + | Care Steamtable Worker Name | Role | Phone | + +------+ + PCP | Unavailable | + +------+ + Encounter Details +--------+ + + + + | Date | Type | Department | Care Team | Description | +--------+ + + + + | 05/22/ | [facility] | [facility] | Nelson Lutz MD | | | 1998 | Encounter | MED CTR GENERIC OP | [address] [place], [place] | | | | | CONV DEPT [address] | [address] [place] | | | | | [place], | [address] | | | | | [place] [address] | | | | | | [phone] | | | +--------+ + + + [...] | | | | | | [address] [place] | | | | | | [address] | | | | | | | | +--------+---------+ + + + documented as of this encounter Visit Diagnoses Not on filedocumented in this encounter"
--- OUTSIDE RECORDS SUMMARY | ~2020-05-08 | XMS | Encounter Summary ---
Demographics + + + | Address | [address] | | | [place] [address] | + + + | Home Phone [...] Team Providers + +------+ + | Care Airline Pilot/First Officer Name | Role | Phone | [...] N Young | | | | | [place], [place] | [place], [place] | | | | | [address] | [address] | | | | | [phone] | [phone] | | | | | | | [...] HOSPITAL[facility] | | | | | | [address] | | | | | | | [...]
--- OUTSIDE RECORDS SUMMARY | ~2020-05-08 | XMS | Encounter Summary ---
Demographics + + + | Address | [address] | | | [place] [address] | + + + | Home Phone [...] Providers + +------+ + | Care Vegetable Worker Name | Role | Phone | [...] + + | 01/30/ | Documentati | [facility] | Simon, | Results (01/25/20) | | 2020 | on | NEPHROLOGY [place] | [facility] | | | | | [address] | Hand Lens Polisher | | | | | [address] [place], [place] | | | | | | [address] | | | | | | [phone] | | | +--------+ + + + [...] [place] | | | | | | [address] | | | | | | | [...]
--- OUTSIDE RECORDS SUMMARY | ~2020-05-08 | XMS | Encounter Summary ---
Demographics + + + | Address | [address] | | | [place] [address] | + + + | Home Phone [...] Providers + +------+ + | Care Administrative Tech Name | Role | Phone | + +------+ + | Rahul Silva MD | PCP | | + +------+ + Encounter Details +--------+ + + + + | Date | Type | Department | Care Team | Description | +--------+ + + + + | 09/17/ | Orders Only | [facility] | Collin Mirza, | | | 2015 | | NEPHROLOGY [place] | CORPORATE BOND TRADER [address] | | | | | [address] [place] | [address] | | | | | [address] [place], [place] | [facility] | | | | | [address] | [address] | | | | | [phone] | [phone] | | | | | | | [...] | | | [address] [facility] | | | | | | [address] | | | | | | | [...] | | | LAB | | | [place] | | | | | + + [...]
--- OUTSIDE RECORDS SUMMARY | ~2020-05-08 | XMS | Encounter Summary ---
Demographics + + + | Address | [address] | | | [place] [address] | + + + | Home Phone [...] Team Providers + +------+ + | Care Hemstitching Machine Operator Name | Role | Phone [...] + + | 08/13/ | Telephone | [facility] | Farrukh Acuna MD | Other (lab result) | | 2019 | | NEPRHOLOGY [place] | [address] [facility] [address] | | | | | [address] | [address] [place], [place] | | | | | [address] [place], [place] | [address] | | | | | [address] | | | | | | [phone] | | | +--------+ + + + [...] 2020 | Visit | | [address] [facility] | | | | | | [address] [place], [place] | | | | | | [address] | | | | | | | | +--------+---------+ + + + documented as of this encounter Visit Diagnoses Not on filedocumented in this encounter"
--- OUTSIDE RECORDS SUMMARY | ~2020-05-08 | XMS | Encounter Summary ---
Demographics + + + | Address | [address] | | | [place] [address] | + + + | Home Phone [...] Author + + + | Author | [facility] | + + + | Organization | [facility] | + + + | Address | Unknown | + + + | Phone | Unavailable | + + + Support + + + + + | Name | Relationship | Address | Phone | + + + + + | Darci Andujar | [address] | [place] | | | | | [address] | | + + + + + Care Team Providers + +------+ + | Care Marine Electronics Repairer Name | Role | Phone | [...] Note | | 2000 | Visit-Trans | [address] [facility] | [phone] | | | | [address] | [address] | | | | | | [place], [place] | | | | | | [address] | | | +--------+ + + + [...] recommend that he see one of our development specialist for further evaluation, and he did appear interested in doing that. 2. Referral to Dr. Willis in Orthopedics. Yuriy Huang M.D. martial arts instructor HOSEAL / [id number] / [id number] / [id number] / [id number] C: 01/23/2001 nw documented in this encounter Plan of Treatment Not on filedocumented as of this encounter Visit Diagnoses Not on filedocumented in this encounter"
--- OUTSIDE RECORDS SUMMARY | ~2020-05-08 | XMS | Encounter Summary ---
Demographics + + + | Address | [address] | | | [place] [address] | + + + | Home Phone [...] [place] | | | | | [address] | | + + + + + Care Team Providers + +------+ + | Care Line Service Technician Name | Role | Phone | [...] Clinic | | | | | | [facility], [address] | | | | | | [place], [place] | | | | | | [address] | | | | | | [phone] | | | +--------+ + + + [...] of this encounter Progress Notes Interface, Metal Fabricating Supervisor In - 01/06/2007 5:03 AM PST CLINIC DATE: 11/10/97 [facility] - FOLLOW-UP VISIT [...] of narcotic medication misuse. Nelson Melara M.D. Instrument Designer, [facility] MANDY/camryn cc: Robert Carlson M.D. Professor, Vascular Surgery documented in this encounter Plan of Treatment Not on filedocumented as of this encounter Visit Diagnoses Not on filedocumented in this encounter"
--- OUTSIDE RECORDS SUMMARY | ~2020-05-08 | XMS | Encounter Summary ---
Demographics + + + | Address | [address] | | | [place] [address] | + + + | Home Phone [...] Team Providers + +------+ + | Care Perfumer Name | Role | Phone | + +------+ + PCP | Unavailable | + +------+ + Encounter Details +--------+ + + + + | Date | Type | Department | Care Team | Description | +--------+ + + + + | 12/31/ | [facility] | [facility] | | | | 2000 | Encounter | MED CTR XRAY [address] | | | | | | [address]ist [address] | | | | | | [place] [address] | | | | | | [phone] | | | +--------+ + + + [...] [place] | | | | | | [address] | | | | | | | | +--------+---------+ + + + documented as of this encounter Visit Diagnoses Not on filedocumented in this encounter"
--- OUTSIDE RECORDS SUMMARY | ~2020-05-08 | XMS | Encounter Summary ---
Demographics + + + | Address | [address] | | | [place] [address] | + + + | Home Phone [...] Providers + +------+ + | Care Health Information Managers Name | Role | Phone | + +------+ + | Mehrdad Bergman | PCP | | + +------+ + Encounter Details +--------+ + + + + | Date | Type | Department | Care Team | Description | +--------+ + + + + | 10/01/ | Telephone | [facility] | Farrukh Acuna MD | | | 2019 | | NEPHROLOGY [place] | [address] [facility] [address] [place] | | | | | [address] | [address] [place], [place] | | | | | [place] | [address] | | | | | [address] | | | | | | [phone] | | | +--------+ + + + [...] 2020 | Visit | | [address] [facility] | | | | | | 160 [place], [place] | | | | | | [address] | | | | | | | | +--------+---------+ + + + documented as of this encounter Visit Diagnoses Not on filedocumented in this encounter"
--- OUTSIDE RECORDS SUMMARY | ~2020-05-08 | XMS | Encounter Summary ---
Demographics + + + | Address | [address] | | | [place] [address] | + + + | Home Phone [...] Providers + +------+ + | Care Sales Trainee Name | Role | Phone | + [...] + + | 12/02/ | Documentati | [facility] | Simon, | Results (11/29/19) | | 2020 | on | NEPHROLOGY [place] | [facility] | | | | | [address] | Senior Ui Designer | | | | | [address] [place], [place] | | | | | | [address] | | | | | | [phone] | | | +--------+ + + + [...] [place] | | | | | | [address] | | | | | | | [...]
--- OUTSIDE RECORDS SUMMARY | ~2020-05-08 | XMS | Encounter Summary ---
Demographics + + + | Address | [address] | | | [place] [address] | + + + | Home Phone [...] [place] | | | | | [address] | | + + + + + Care Team Providers + +------+ + | Care Dovetail Machine Operator Name | Role | Phone [...] Rd | | | | | | [place], [place] | | | | | | [address] | | | +--------+ + + + [...] as of this encounter Progress Notes Interface, Photo Machine Operator In - 03/27/2007 3:12 AM PDT CLINIC [...] an abnormal AC-BE, he was referred to [facility] for colonoscopy. MEDICATIONS: 1. Vicodin. 2. [...] Dr. Valles who is his physician in [place], [place]. He has made me aware that [...] M.D. Fellow, Gastroenterology SHANEL/stephon cc: ARIA WATKINS [facility] [place] documented in this encounter Plan of Treatment Not on filedocumented as of this encounter Visit Diagnoses Not on filedocumented in this encounter"
--- OUTSIDE RECORDS SUMMARY | ~2020-05-08 | XMS | Encounter Summary ---
Demographics + + + | Address | [address] | | | [place] [address] | + + + | Home Phone [...] Providers + +------+ + | Care Public Area Attendant Name | Role | Phone | + +------+ + | Rahul Silva MD | PCP | | + +------+ + Encounter Details +--------+ + + + + | Date | Type | Department | Care Team | Description | +--------+ + + + + | 07/14/ | Orders Only | [facility] | Farrukh Acuna MD | | | 2018 | | NEPRHOLOGY [place] | [address] | | | | | [address] | [address] [place], [place] | | | | | [address] [place], [place] | [address] | | | | | [address] | | | | | | [phone] | | | +--------+ + + + [...] 2020 | Visit | | [address] [facility] | | | | | | [address] [place] | | | | | | [address] | | | | | | | [...]
--- OUTSIDE RECORDS SUMMARY | ~2020-05-08 | XMS | Encounter Summary ---
Demographics + + + | Address | [address] | | | [place] [address] | + + + | Home Phone [...] Team Providers + +------+ + | Care Shotgun Shell Reprinting Unit Operator Name | Role | Phone | [...] [address] Young | | | | | [place], [place] | [place], [place] | | | | | [address] | [address] | | | | | [phone] | [phone] | | | | | | | [...] 2020 | Visit | | [address] [facility] | | | | | | [facility] | | | | | | [address] | | | | | | | [...] | Attending/Visit Provider: , GER WATKINS, Cary LOEV, , , , CELSA, | EXTERNAL LAB [...]
--- OUTSIDE RECORDS SUMMARY | ~2020-05-08 | XMS | Encounter Summary ---
Demographics + + + | Address | [address] | | | [place] [address] | + + + | Home Phone [...] [place] | | | | | [address] | | + + + + + Care Team Providers + +------+ + | Care Home Stereo Equipment Installer Name | Role | Phone [...] [id number] | | | | | | [place], [place] | | | | | | [address] | | | | | | [phone] | | | +--------+ + + + [...] | + + + + + | [facility] | [address] | [place] [address] | | | PATHOLOGY | [address] [...] | + + + + + | [facility] | [address] | [place] [address] | | | PATHOLOGY | [address] [...] OF | [address] | [place] [address] | | | PATHOLOGY | [address] | | | + + + + + SURGICAL PATHOLOGY (04/06/1998) + + + + + + | Component | Value | Ref Range | Performed | Pathologist | | | | | At | Signature | + + + + + + | SURGICAL | SOURCE OF SPECIMEN: SEE | | [facility] | | | PATHOLOGY | RESULTS [...] | + + + + + | [facility] | [address] | [place] [address] | | | PATHOLOGY | [address] | | | + + + + + documented in this encounter Visit Diagnoses Not on filedocumented in this encounter
--- OUTSIDE RECORDS SUMMARY | ~2020-05-08 | XMS | Encounter Summary ---
Demographics + + + | Address | [address] | | | [place] [address] | + + + | Home Phone [...] Team Providers + +------+ + | Care Vending Service Technician Name | Role | Phone [...] + + | 11/08/ | Documentati | [facility] | Simon, | Results (10/10/19) | | 2019 | on | NEPHROLOGY [place] | [facility] | | | | | [address] | Studio Engineer | | | | | [address] | | | | | | [place] | | | | | | [address] | | | | | | [phone] | | | +--------+ + + + [...] 2020 | Visit | | [address] [facility] | | | | | | [address] [place], [place] | | | | | | [address] | | | | | | | [...]
--- OUTSIDE RECORDS SUMMARY | ~2020-05-08 | XMS | Encounter Summary ---
Demographics + + + | Address | [address] | | | [place] [address] | + + + | Home Phone [...] [place] | | | | | [address] | | + + + + + Care Team Providers + +------+ + | Care Automation Architect Name | Role | Phone | + +------+ + PCP | Unavailable | + +------+ + Encounter Details +--------+ + + + + | Date | Type | Department | Care Team | Description | +--------+ + + + + | 03/30/ | Results | | Other, Faculty | | | 1992 | Only | | [phone] | | +--------+ + + + + [...] | | | | | | | [id number] AND | | | | | | [...] | | | | | | | [id number] | | | | | | CHEST: [...] | | | | | | | [id number] | | | | | | CHEST: [...] | | | | | | | [id number], | | | | | | PORTABLE, [...] | | | | | | | [id number], | | | | | | PORTABLE, [...] and | | | | | | Perry Ganzcatheter are | | | | | [...] | | | | | | a Perry-Lupe catheter | | | | | | [...] | | | | placement of a Perry-Lupe | | | | | | catheter. CHEST, | | | | | | SINGLE AP PORTABLE: | | | | | | 03-31-93 AT 1000 HOURS | | | | | | FINDINGS: Since the | | | | | | prior study, the | | | | | | Perry-Lupe catheter has | | | | | [...] IMPRESSION: | | | | | | Perry-Lupe catheter | | | | | | [...] The | | | | | | Perry-Lupe catheter | | | | | | [...] and | | | | | | Perry-Lupe catheter | | | | | | [...] endotracheal | | | | | | tube,Perry-Lupe catheter | | | | | | [...] | | | | | | a Perry-Lupe catheter | | | | | | [...] | | | | placement of a Perry-Lupe | | | | | | catheter. CHEST, | | | | | | SINGLE AP PORTABLE: | | | | | | 03-31-93 AT 1000 HOURS | | | | | | FINDINGS: Since the | | | | | | prior study, the | | | | | | Perry-Lupe catheter has | | | | | [...] IMPRESSION: | | | | | | Perry-Lupe catheter | | | | | | [...] The | | | | | | Perry-Lupe catheter | | | | | | [...] and | | | | | | Perry-Lupe catheter | | | | | | [...] endotracheal | | | | | | tube,Perry-Lupe catheter | | | | | | [...] | | | | | | a Perry-Lupe catheter | | | | | | [...] | | | | placement of a Perry-Lupe | | | | | | catheter. CHEST, | | | | | | SINGLE AP PORTABLE: | | | | | | 03-31-93 AT 1000 HOURS | | | | | | FINDINGS: Since the | | | | | | prior study, the | | | | | | Perry-Lupe catheter has | | | | | [...] IMPRESSION: | | | | | | Perry-Lupe catheter | | | | | | [...] The | | | | | | Perry-Lupe catheter | | | | | | [...] and | | | | | | Perry-Lupe catheter | | | | | | [...] endotracheal | | | | | | tube,Perry-Lupe catheter | | | | | | [...] | | | | | | a Perry-Lupe catheter | | | | | | [...] | | | | placement of a Perry-Lupe | | | | | | catheter. CHEST, | | | | | | SINGLE AP PORTABLE: | | | | | | 03-31-93 AT 1000 HOURS | | | | | | FINDINGS: Since the | | | | | | prior study, the | | | | | | Perry-Lupe catheter has | | | | | [...] IMPRESSION: | | | | | | Perry-Lupe catheter | | | | | | [...] The | | | | | | Perry-Lupe catheter | | | | | | [...] and | | | | | | Perry-Lupe catheter | | | | | | [...] endotracheal | | | | | | tube,Perry-Lupe catheter | | | | | | [...] | | | | | | a Perry-Lupe catheter | | | | | | [...] | | | | placement of a Perry-Lupe | | | | | | catheter. CHEST, | | | | | | SINGLE AP PORTABLE: | | | | | | 03-31-93 AT 1000 HOURS | | | | | | FINDINGS: Since the | | | | | | prior study, the | | | | | | Perry-Lupe catheter has | | | | | [...] IMPRESSION: | | | | | | Perry-Lupe catheter | | | | | | [...] The | | | | | | Perry-Lupe catheter | | | | | | [...] and | | | | | | Perry-Lupe catheter | | | | | | [...] endotracheal | | | | | | tube,Perry-Lupe catheter | | | | | | [...] | | | | | | [facility] | | | | | | Bilateral [...] | | | | | | a Perry-Lupe catheter | | | | | | [...] | | | | placement of a Perry-Lupe | | | | | | catheter. CHEST, | | | | | | SINGLE AP PORTABLE: | | | | | | 03-31-93 AT 1000 HOURS | | | | | | FINDINGS: Since the | | | | | | prior study, the | | | | | | Perry-Lupe catheter has | | | | | [...] IMPRESSION: | | | | | | Perry-Lupe catheter | | | | | | [...] The | | | | | | Perry-Lupe catheter | | | | | | [...] and | | | | | | Perry-Lupe catheter | | | | | | [...] endotracheal | | | | | | tube,Perry-Lupe catheter | | | | | | [...] | | | | | | a Perry-Lupe catheter | | | | | | [...] | | | | placement of a Perry-Lupe | | | | | | catheter. CHEST, | | | | | | SINGLE AP PORTABLE: | | | | | | 03-31-93 AT 1000 HOURS | | | | | | FINDINGS: Since the | | | | | | prior study, the | | | | | | Perry-Lupe catheter has | | | | | [...] IMPRESSION: | | | | | | Perry-Lupe catheter | | | | | | [...] The | | | | | | Perry-Lupe catheter | | | | | | [...] and | | | | | | Perry-Lupe catheter | | | | | | [...] endotracheal | | | | | | tube,Perry-Lupe catheter | | | | | | [...]
--- OUTSIDE RECORDS SUMMARY | ~2020-05-08 | XMS | Encounter Summary ---
Demographics + + + | Address | [address] | | | [place] [address] | + + + | Home Phone [...] Team Providers + +------+ + | Care Quill Buncher And Sorter Name | Role | Phone | [...] + + | 01/30/ | Documentati | [facility] | Simon, | Results (01/25/20) | | 2020 | on | NEPHROLOGY [place] | [facility] | | | | | [address] | Agency Cashier | | | | | [address] [place], [place] | | | | | | [address] | | | | | | [phone] | | | +--------+ + + + [...] [place] | | | | | | [address] | | | | | | | [...]
--- OUTSIDE RECORDS SUMMARY | ~2020-05-08 | XMS | Encounter Summary ---
Demographics + + + | Address | [address] | | | [place] [address] | + + + | Home Phone [...] + +------+ + | Care Director Of Analytical Development Name | Role | Phone | + +------+ + | Rahul Silva MD | PCP | | + +------+ + Encounter Details +--------+ + + + + | Date | Type | Department | Care Team | Description | +--------+ + + + + | 07/06/ | Orders Only | [facility] | Farrukh Acuna MD | | | 2018 | | NEPRHOLOGY [place] | [address] | | | | | [address] | [address] [place], [place] | | | | | [address] [place], [place] | [address] | | | | | [address] | | | | | | [phone] | | | +--------+ + + + [...] [place] | | | | | | [address] | | | | | | | [...] | | | LAB | | | PALEST[place]IAN | | | | | + + [...]
--- OUTSIDE RECORDS SUMMARY | ~2020-05-08 | XMS | Encounter Summary ---
Demographics + + + | Address | [address] | | | [place] [address] | + + + | Home Phone [...] [place] | | | | | [address] | | + + + + + Care Team Providers + +------+ + | Care Desktop Operator Name | Role | Phone | [...] Vyas | | | | | | [address] | | | | | | [place], [place] | | | | | | [address] | | | | | | [phone] | | | +--------+ + + + [...] as of this encounter Progress Notes Interface, Soccer Ball Assembler In - 02/17/2007 3:02 AM PDT [address] [address] or August 05, 1996 RUBIA VALLES MD [address] [facility] [address] RE:PORFIRIO ZAVALA MR#:[id number] Valles: Mr. Porfirio Zavala returned to the [facility] today for a followup visit. 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 Mr. Zavala has failed numerous femoral [...] dictating for: Alina Moise M.D. Professor and Property Insurance Agent, Division of Neurosurgery MARYANA/sajan cc: Seven Khan, Ph.D. Clinical Psychologist-Neuropsychologist documented in this encounter Plan of Treatment Not on filedocumented as of this encounter Visit Diagnoses Not on filedocumented in this encounter"
--- OUTSIDE RECORDS SUMMARY | ~2020-05-08 | XMS | Encounter Summary ---
Demographics + + + | Address | [address] | | | [place] [address] | + + + | Home Phone [...] Providers + +------+ + | Care Senior Safety Management Consultant Name | Role | Phone | + +------+ + | Rahul Silva MD | PCP | | + +------+ + Encounter Details +--------+ + + + + | Date | Type | Department | Care Team | Description | +--------+ + + + + | 12/07/ | Orders Only | [facility] | Farrukh Acuna MD | Essential | | 2020 | | NEPHROLOGY [place] | [address] | hypertension | | | | [address] [place] | [address] [place], [place] | (Primary Dx); | | | | [address] [place], [place] | [address] | Secondary | | | | [address] | | hyperparathyroidism | | | | [phone] | | (HCC); Anemia of | | | | | | chronic kidney | | | | | | failure, stage 5 | | | | | | ([facility]); CKD (chronic | | | | | | kidney disease) | | | | | | stage 5, GFR less | | | | | | than 15 ml/min | | | | | | ([facility]); Persistent | | | | [...] | | | | | | [address] [place], [place] | | | | | | [address] | | | | | | | [...] | | | | | | ml/min ([facility]) | | | | | [...] | | | | | | ml/min ([facility]) | | | | | [...] | | | | | | ml/min ([facility]) | | | | | [...] | | | | | | ml/min ([facility]) | | | | | [...] | | | | | | ml/min ([facility]) | | | | | [...] 5 | | | | | | ([facility]) CKD (chronic | | | | | | kidney disease) | | | | | | stage 5, GFR less | | | | | | than 15 ml/min ([facility]) | | + +------+--------+ + + | Ferritin | Lab | Routin | Essential | Expected: | | | | e | hypertension Anemia | 01/07/2020, Expires: | | | | | of chronic kidney | 12/07/2020 | | | | | failure, stage 5 | | | | | | ([facility]) CKD (chronic | | | | | | kidney disease) | | | | | | stage 5, GFR less | | | | | | than 15 ml/min ([facility]) | | + +------+--------+ + + | Parathyroid Hormone, | Lab | Routin | Essential | Expected: | | Intact | | e | hypertension | 01/07/2020, Expires: | | | | | Secondary | 12/07/2020 | | | | | hyperparathyroidism | | | | | | ([facility]) CKD (chronic | | | | | | kidney disease) | | | | | | stage 5, GFR less | | | | | | than 15 ml/min ([facility]) | | | | | [...] less than 15 ml/min ([facility]) Chronic kidney | | disease, Stage V | + + | Persistent proteinuria Proteinuria | + + documented in this encounter"
--- OUTSIDE RECORDS SUMMARY | ~2020-05-08 | XMS | Encounter Summary ---
Demographics + + + | Address | [address] | | | [place] [address] | + + + | Home Phone [...] Team Providers + +------+ + | Care Telephone Interceptor Operator Name | Role | Phone | [...] | | | MARIA VICTORIA BECERRIL | [place] [address] | | | | | [place] [address] | | | | | | [phone] | | | +--------+ + + + [...] SYSTEM[place] | | | | | | [address] | | | | | | | [...]
--- OUTSIDE RECORDS SUMMARY | ~2020-05-08 | XMS | Encounter Summary ---
Demographics + + + | Address | [address] | | | [place] [address] | + + + | Home Phone [...] Providers + +------+ + | Care Order Selector Name | Role | Phone | + +------+ + | Rahul Silva MD | PCP | | + +------+ + Encounter Details +--------+ + + + + | Date | Type | Department | Care Team | Description | +--------+ + + + + | 04/10/ | Orders Only | [facility] | Conversion | | | 2014 | | NEPRHOLOGY [place] | Transaction, | | | | | [address] | Provider Unknown | | | | | [address] [place], [place] | | | | | | [address] | (Fax) | | | | | [phone] | | | +--------+ + + + [...] [place] | | | | | | [address] | | | | | | | [...] + + + | Red Blood | 3.41 (A) | 4.3 - 5.7 [...]
--- OUTSIDE RECORDS SUMMARY | ~2020-05-08 | XMS | Clinical Summary ---
Demographics + + + | Address | [address] | | | [place] [address] | + + + | Home Phone [...] Providers + +------+ + | Care Core Java Software Engineer Name | Role | Phone [...] | | | | | | | ([facility]), Secondary | | | | | | | | hyperparathyroidism | | | | | | | | ([facility]) | | | | | | | [...] | Activ | | TABS | mouth Daily. | [...] | darbepoetin amarjit | Inject 1 mL under | 1 mL | 0 | 01/0 | | Activ | | (ARANESP, ALBUMIN | the skin Every 30 | | | 7/20 | | e | | FREE,) 100 mcg/mL | days. | | | 20 | | | | injectionIndications | | | | | | | | : Essential | | | | | | | | hypertension, Anemia | | | | | | | | of chronic kidney | | | | | | | | failure, stage 5 | | | | | | | | ([facility]), CKD (chronic | | | | | | | | kidney disease) | | | | | | | | stage 5, GFR less | | | | | | | | than 15 ml/min ([facility]) | | | | | | | + + + +---------+------+------+-------+ | torsemide | Take 2 tablets by | 180 | 3 | 04/ | | Activ | | (DEMADEX) 20 mg | mouth Daily. | tablet | | 4/20 | | e | | tabletIndications: | | | | 20 | | | | Essential | | [...] ml/min ([facility]) | | | | | | | + + + +---------+------+------+-------+ | TRELEGY ELLIPTA | inhale 1 puff by | | 0 | 03/1 | | Activ | | 100-62.5-25 MCG/INH | mouth once daily | | | 7/20 | | e | | inhaler | | | | 20 | | | + + + +---------+------+------+-------+ | sodium bicarbonate | take 1 tablet by | 1080 | 3 | 06/0 | | Activ | | 650 mg | mouth four times a | tablet | | 5/20 | | e | | tabletIndications: | day | | | 20 | | | | Essential | | | | | | | | hypertension, Anemia | | | | | | | | of chronic kidney | | | | | | | | failure, stage 5 | | | | | | | | ([facility]), Persistent | | | | | | | | proteinuria, CKD | | | | | | | | (chronic kidney | | | | | | | | disease) stage 5, | | | | | | | | GFR less than 15 | | | | | | | | ml/min ([facility]) | | | | | | | + + + +---------+------+------+-------+ | sodium bicarbonate | | | 0 | 07/0 | 06/0 | Disco | | 650 mg tablet | | | | 12/20 | 04/19 | ntinu | | | | | | | 20 | ed | + + + +---------+------+------+-------+ Active Problems + + + | Problem | Noted Date | + + + | CKD (chronic kidney disease) stage 5, GFR less than 15 ml/min | 08/26/2019 | + + + + + | Overview: Added automatically from request for surgery | | [id number] | + + + + + | [...] & Plan: Controlled on current | | c[age]ijljopog3 yr old male with COPD, current heavy [...] | +--------+ + + + + | 05/04/ | Refill | Nephrology | Farrukh Acuna MD | Medication Refill | 2019 | | | | | +--------+ + + + + | 04/06/ | Telephone | Nephrology | Farrukh Acuna MD | Other (IV feraheme | | 2019 | | | | and maria t | | | | | | question) | +--------+ + + + + | 03/29/ | Documentati | Nephrology | Alfred, | Other (IV feraheme | | 2019 | on | | Charlie Abdi | order sent to A. | | | | | Dealer Analyst | IVT confirmation | | | | | | received) | +--------+ + + + + | 03/28/ | Orders Only | Nephrology | Farrukh Acuna MD | Essential | | 2020 | | | | hypertension | | | | | | (Primary Dx); Anemia | | | | | | of chronic kidney | | | | | | failure, stage 5 | | | | | | ([facility]); Persistent | | | | | | proteinuria; CKD | | | | | | (chronic kidney | | | | | | disease) stage 5, | | | | | | GFR less than 15 | | | | | | ml/min ([facility]) | +--------+ + + + + | 03/27/ | Virtual | Nephrology | Farrukh Acuna MD | CKD (chronic kidney | | 2020 | Office | | | disease) stage 5, | | | Visit | | | GFR less than 15 | | | | | | ml/min ([facility]) | | | | | | (Primary Dx); Anemia | | | | | | of chronic kidney | | | | | | failure, stage 5 | | | | | | ([facility]); Edema of | | | | [...] insulin | | | | | | ([facility]); Secondary | | | | | | hyperparathyroidism | | | | | | ([facility]); Essential | | | | | | hypertension; | | | | | | Tobacco dependence | | | | | | syndrome | +--------+ + + + + | 03/23/ | Documentati | Nephrology | Alfred | Aylin (03/21/20) | | 2020 | on | | Charlie Abdi | | | | | | Dealer Analyst | | +--------+ + + + + | 03/20/ | Telephone | Nephrology | Sandy Capellan | Mary (Clarification | 2019 | | | BAN Valadez | on lab orders) | +--------+ + + + + | 03/16/ | Orders Only | Vascular Surgery | Trisha Conner DNP | | | 2019 | | | | | +--------+ + + + + | 03/14/ | Refill | Nephrology | Farrukh Acuna MD | Medication Refill | | 2019 | | | | | +--------+ + + + + | 03/14/ | Refill | Nephrology | Farrukh Acuna MD | Medication Refill | | 2019 | | | | | +--------+ + + + + | 02/27/ | Documentati | Nephrology | Simon, | Results ([facility] | | 2019 | on | | Charlie Abdi | 02/24/20) | | | | | Dealer Analyst | | +--------+ + + + + | 02/16/ | Imaging | Radiology | Provider, | | | 2019 | Exam | | MD Jonathan | | +--------+ + + + + | 02/07/ | Refill | Nephrology | Farrukh Acuna MD | Medication Refill | | 2019 | | | | [...] 2019 | Visit | | [address] [facility] | | | | | | [address] [place] | | | | | | [address] | | | | | | | [...] | LABS - EXTERNAL SCAN | | 03/21/2020 | | Results for this | | | | 12:00 AM | | procedure are in the | | | | PDT | | results section. | + +--------+ + + + | LABS - EXTERNAL SCAN | | 03/21/2020 | | Results for this | | | | 12:00 AM | | procedure are in the | | | | PDT | | results section. | + +--------+ + + + | EXTERNAL LAB: PTH, | Routin | 03/21/2020 | | Results [...] | LABS - EXTERNAL SCAN | | 02/24/2020 | | Results for this [...] + + from Last 3 Months Results External Lab: PTH, Intact (03/21/2020) + [...] | + + LABS - EXTERNAL SCAN (03/21/2020 12:00 AM PDT)Only the most recent of 3 results within the time period is included. + + + | Narrative | Performed At | + + + | Ordered by an | | | unspecified provider. | | + + + CBC with Manual Differential (03/21/2020) + + + + + + | Component | Value | Ref Range | Performed | Pathologist | | | | | At | Signature | + + + + + + | WBC | 7.5 | 4.5 - 11.0 | | | + + + + + + | RBC | 3.12 (A) | 4.30 - 5.70 [...] + + + + + + | BF % | 0 | 0 - 2 % | | | | Basophils | | | | | + + [...] Blood | + + Basic Metabolic Panel (02/24/2020) + + + [...] + + | Blood | + + XR Chest 1 Vw (02/14/2020 12:00 AM [...] +--------+ +---------+--------+ | MEDICARE | MEDICA | [id number] | 07/01/20 | [phone] | | Medica | | | RE | | 05-Pre | 5 | | re | | | PART A | | sent | | | | | | AND B | | | | | | + +--------+ +--------+ +---------+--------+ | [employer] | MODA | [id number] | 07/04/20 | [phone] | | Medica | | MEDICAID HMO | HEALTH | | 19-Pre | 1 | | id | | | MDCD | | sent | | | | | | HMO [place] | | | | | | + +--------+ +--------+ +---------+--------+ | [employer] | MODA | [id number] | | [phone] | | Medica | | MEDICAID HMO | HEALTH | | 020-Pr | 1 | | id | | | MDCD | | esent | | | | | | HMO [...] Self | [birth year] | | [address] | | Art[place] | al/Fam | | 1940 | [phone] | [place] | | | [place] | | | 1 (Home) | [address] | + +--------+ +--------+ + + | AndujarKavon silva | Person | Self | [birth year] | [address] | | [address] | al/Scott | | 1940 | [phone] | [place] | | | [place] | | | 1 (Home) | [address] | + +--------+ +--------+ + + Advance Directives + + + + + | Type | Date Recorded | Patient | Explanation | | | | Mechanical Service Technician | | + + + + + | Power of | | | | | Sidewalk Repairer | | | | + + + [...]
--- OUTSIDE RECORDS SUMMARY | ~2020-05-08 | XMS | Encounter Summary ---
Demographics + + + | Address | [address] | | | [place] [address] | + + + | Home Phone [...] Team Providers + +------+ + | Care Bottom Cager Name | Role | Phone | + [...] Young | | | | | [place], [place] | [place], [place] | | | | | [address] | [address] | | | | | [phone] | [phone] | | | | | | | [...] | | | | | | [address] [facility] | | | | | | [address] | | | | | | | [...] + + | Attending/Visit Provider: , TAE WATKISN, LEONORA, , , , , [facility], | [...]
--- OUTSIDE RECORDS SUMMARY | ~2020-05-08 | XMS | Encounter Summary ---
Demographics + + + | Address | [address] | | | [place] [address] | + + + | Home Phone [...] Team Providers + +------+ + | Care Rehab Rn Name | Role | Phone | + +------+ + | Rahul Silva MD | PCP | | + +------+ + Encounter Details +--------+ + + + + | Date | Type | Department | Care Team | Description | +--------+ + + + + | 10/28/ | Orders Only | [facility] | Conversion | | | 2016 | | NEPHROLOGY [place] | Transaction, | | | | | [address] | Provider Unknown | | | | | [address] [place] | | | | | | [address] | (Fax) | | | | | [phone] | | | +--------+ + + + [...] | | | [address] [facility] | | | | | | [address] | | | | | | | [...]
--- OUTSIDE RECORDS SUMMARY | ~2020-05-08 | XMS | Encounter Summary ---
Demographics + + + | Address | [address] | | | [place] [address] | + + + | Home Phone [...] Providers + +------+ + | Care Bilingual School Psychologist Name | Role | Phone | [...] N Young | | | | | [place], [place] | [place], [place] | | | | | [address] | [address] | | | | | [phone] | [phone] | | | | | | | [...] 2020 | Visit | | [address] [facility] | | | | | | [facility] | | | | | | [address] | | | | | | | [...] + + + | Red Blood | 3.11 (L) | 4.20 - 5.70 [...]
--- OUTSIDE RECORDS SUMMARY | ~2020-05-08 | XMS | Encounter Summary ---
Demographics + + + | Address | [address] | | | [place] [address] | + + + | Home Phone [...] Team Providers + +------+ + | Care Floor Covering Layer Name | Role | Phone | [...] N Young | | | | | [place], [place] | [place], [place] | | | | | [address] | [address] | | | | | [phone] | [phone] | | | | | | | [...] | | | | [address] [facility] | | | | | | [address] | | | | | | | [...]
--- OUTSIDE RECORDS SUMMARY | ~2020-05-08 | XMS | Encounter Summary ---
Demographics + + + | Address | [address] | | | [place] [address] | + + + | Home Phone [...] Providers + +------+ + | Care Home Appraiser Name | Role | Phone | [...] | | | MARIA VICTORIA BECERRIL | [place] [address] | | | | | [place] [address] | | | | | | [phone] | | | +--------+ + + + [...] 2019 | Visit | | [address] [facility] [address] | | | | | | [address] [place] | | | | | | [address] | | | | | | | [...]
--- OUTSIDE RECORDS SUMMARY | ~2020-05-08 | XMS | Encounter Summary ---
Demographics + + + | Address | [address] | | | [place] [address] | + + + | Home Phone [...] Team Providers + +------+ + | Care Compounder Helper Name | Role | Phone | [...] | | | MARIA VICTORIA BECERRIL | [place] [address] | | | | | [place] [address] | | | | | | [phone] | | | +--------+ + + + [...] | | | | | | [address] [place] | | | | | | [address] | | | | | | | [...]
--- OUTSIDE RECORDS SUMMARY | ~2020-05-08 | XMS | Encounter Summary ---
Demographics + + + | Address | [address] | | | [place] [address] | + + + | Home Phone [...] Team Providers + +------+ + | Care Diver'S Tender Name | Role | Phone | + +------+ + | Rahul Silva MD | PCP | | + +------+ + Encounter Details +--------+ + + + + | Date | Type | Department | Care Team | Description | +--------+ + + + + | 12/06/ | Orders Only | [facility] | Farrukh Acuna MD | Essential | | 2020 | | NEPHROLOGY [place] | [address] [place] | hypertension | | | | [address] [place] | [address] [place], [place] | (Primary Dx); CKD | | | | [address] [place], [place] | [address] | (chronic kidney | | | | [address] | | disease) stage 5, | | | | [phone] | | GFR less than 15 | | | | | | ml/min ([facility]); Anemia | | | | | | [...] [place] | | | | | | [address] | | | | | | | [...] | | | | | ml/min ([facility]) [...] | | | | | ml/min ([facility]) [...] | | | | | ml/min ([facility]) [...] | | | | | ml/min ([facility]) [...] | | | | | ml/min ([facility]) | | | | | | Hypomagnesemia [...] | | | | | ml/min ([facility]) Anemia | | | | | | of chronic kidney | | | | | | failure, stage 5 | | | | | | ([facility]) Persistent | | | | [...] | | ([facility]) Persistent | | | | [...] | | | | | ml/min ([facility]) [...]
--- OUTSIDE RECORDS SUMMARY | ~2020-05-08 | XMS | Encounter Summary ---
Demographics + + + | Address | [address] | | | [place] [address] | + + + | Home Phone [...] Team Providers + +------+ + | Care Benefits Manager Name | Role | Phone | [...] N Young | | | | | [place], [place] | [place], [place] | | | | | [address] | [address] | | | | | [phone] | [phone] | | | | | | | [...] Visit | | [address] [facility] | | | | | | [address] [facility] | | | | | | [address] | | | | | | | [...]
--- OUTSIDE RECORDS SUMMARY | ~2020-05-08 | XMS | Encounter Summary ---
Demographics + + + | Address | [address] | | | [place] [address] | + + + | Home Phone [...] Providers + +------+ + | Care Manager Terminal Name | Role | Phone | + [...] + + | 03/23/ | Documentati | [facility] | Simon, | Results (03/21/20) | | 2020 | on | NEPHROLOGY [place] | [facility] | | | | | [address] | [place] | | | | | [address] | | | | | | [place], [place] | | | | | | [address] | | | | | | [phone] | | | +--------+ + + + [...] | | | | [address] [facility] [place] | | | | | | [address] | | | | | | | [...]
--- OUTSIDE RECORDS SUMMARY | ~2020-05-08 | XMS | Encounter Summary ---
Demographics + + + | Address | [address] | | | [place] [address] | + + + | Home Phone [...] [place] | | | | | [address] | | + + + + + Care Team Providers + +------+ + | Care Projection Engineer Name | Role | Phone | [...] | | | amputation | [place], | [place], [place] | | | | | stump, | [place] [address] | [address] | | | | | unspecified | Phone: | Phone: | | | | | | [phone] | [phone] | | | | | | Fax: | Fax: | | | | | | [phone] | [phone] | +--------+--------+ + + + + Encounter Details +--------+---------+ + + + | Date | Type | Department | Care Team | Description | +--------+---------+ + + + | 04/10/ | Office | [facility] | Seven Reilly MD | Low back pain; | | 2009 | Visit | Pain Center at | [address] | Herniated lumbar | | | | [facility] | [place], [place] | intervertebral disc; | | | | [address] | [address] | Stump pain (HCC) | | | | Mailcode: [facility] | [phone] | | | | | [facility] | | | | | | and Healing, | | | | | | Building | | | | | | Floor [place], [place] | | | | | | [address] | | | | | | [phone] | | | +--------+---------+ + + + [...] trainee's note. Seven Reilly MD, DABA, [facility] P DTMariano Martinez MD - 04/10/2010 12:30 PM PDT [facility] Office Visit 04/10/2010 Kavon Andujar; ; : 1940 Mr. Andujar was referred for pain management consultation by RAHUL COYNE MD [address] [place] [address], [place] [address] Reason for visit: Chief Complaint Patient presents [...] pain. He has been referred to the [facility] for consultation regarding this ongoing [...] that the most effective treatments include: medications. 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 As part of today's visit the [facility] new patient questionnaire was [...] you expect from your visits to the [facility] ? Don't know Vital [...] and summary of old medical records (source: [employer]), as summarized in the body of the [...] generic medication. Follow up: none scheduled at [facility] [place]. Mariano Martinez MD Pain Fellow [facility] documented in this encounter Plan of [...]
--- OUTSIDE RECORDS SUMMARY | ~2020-05-08 | XMS | Encounter Summary ---
Demographics + + + | Address | [address] | | | [place] [address] | + + + | Home Phone [...] Team Providers + +------+ + | Care Graining Press Operator Name | Role | Phone [...] | ([facility]) | | | | | | [...] + + | 09/10/ | Hospital | [facility] | Brian Orosco MD | CKD (chronic kidney | | 2019 | Encounter | [facility] | [address] | disease) stage 5, | | | | OPERATING ROOM [address] | [place], [place] | GFR less than 15 | | | | [address] | [address] | ml/min ([facility]) | | | | [place], [place] | [phone] | | | | | [address] | | | | | | [phone] | | | +--------+ + + + [...] dialysis shunt, please contact your ysician at [phone]. Discharge instructions for Diagnostic Imaging sedation patients [...] . For any severe symptoms, please call [phone] or report to your nearest Emergency Department. Acetaminophen; Hydrocodone tablets or capsules Brand Names: Anexsia, Lorcet, Lorcet HD, Lorcet Plus, Lortab, Hope, Verdrocet, Vicodin, Vi codin ES, Vicodin HP, [...] information carefully each time. Talk to your driving instructor regarding the use of this medicine in children. Special care may be needed. What side effects may I notice from receiving this medicine? Side effects that you should report to your doctor or health care transition coordinator as soon as p ossible: allergic reactions [...] (report to your doctor or health care transition coordinator if they continue or are bothersome): constipation [...] to an official disposal site. Contact the [facility] at or your [facility] to find a site. If [...] medicine? Tell your doctor or health care transition coordinator if your pain does not go away, [...] cuts, scrapes, or blows. Date Last Reviewed: 12/01/201619999971-[address] [place], [place] [address]. All righ ts reserved. This information is [...] | | ([facility]), Secondary | | | | | [...] and bl ood clots prevention. Prescription for Hope given and side effects were explained. Patient states that he also takes oxycodone at home; patient and his family were educated about taki ng oxycodone or Hope only and not both. OTC Tylenol intake [...] 2019 | Visit | | [facility] | | | | | | [address] [place], [place] | | | | | | [...] Testing | 65 - 99 mg/dL | [facility] | | | POC | performed at [facility];[address] | | LABORATORY | | | | [address];[place], [place] | | | | | | [address] | | | | + + + + + + + + | Specimen | + + | | + + + + + + + | Performing | Address | City/State/Zipcode | Phone Number | | Organization | | | | + + + + + | [facility] | [address] | [place] [address] | [phone] | + + + + + POC [...] | | | POC | performed at [facility];[address] | | LABORATORY | | | | [address];[place], [place] | | | | | | [address] | | | | + + + + + + + + | Specimen | + + | | + + + + + + + | Performing | Address | City/State/Zipcode | Phone Number | | Organization | | | | + + + + + | [facility] | [address] | [place] [address] | [phone] | + + + + + documented [...] One week or | | | longer, abijaj-fxv-kztkz use of | | | at least [...]
--- OUTSIDE RECORDS SUMMARY | ~2020-05-08 | XMS | Encounter Summary ---
Demographics + + + | Address | [address] | | | [place] [address] | + + + | Home Phone [...] Providers + +------+ + | Care Energy Conservation Specialist Name | Role | Phone | [...] N Young | | | | | [place], [place] | [place], [place] | | | | | [address] | [address] | | | | | [phone] | [phone] | | | | | | | [...] 2020 | Visit | | [address] [facility] | | | | | | [facility] | | | | | | [address] | | | | | | | [...]
--- OUTSIDE RECORDS SUMMARY | ~2020-05-08 | XMS | Encounter Summary ---
Demographics + + + | Address | [address] | | | [place] [address] | + + + | Home Phone | | + + + | Preferred Language | Unknown | + + + | Marital Status | Single | + + + | Mosque Affiliation | PRO | + + + [...] [place] | | | | | [address] | | + + + + + Care Team Providers + +------+ + | Care Culinary Art Teacher Name | Role | Phone | [...] Vyas | | | | | | [address] | | | | | | [place], [place] | | | | | | [address] | | | | | | [phone] | | | +--------+ + + + [...] of this encounter Progress Notes Interface, Manager Express In - 01/03/2007 5:08 AM PST [address] [address] Department of Orthopaedics, [facility] [employer] OP19 December 21, 1997 Jerry Smiley M.D. [address] [place] [id number] RE:Kavon Andujar MR#:[id number] Smiley: Thank [...] Carlson might like. Sincerely, Eric Mcclure M.D. Tunnel Miner, Department of Orthopaedics and Rehabilitation AY/egl A documented in this encounter Plan of Treatment Not on filedocumented as of this encounter Visit Diagnoses Not on filedocumented in this encounter"
--- OUTSIDE RECORDS SUMMARY | ~2020-05-08 | XMS | Encounter Summary ---
Demographics + + + | Address | [address] | | | [place] [address] | + + + | Home Phone [...] Providers + +------+ + | Care Regulatory Services Consultant Name | Role | Phone | [...] N Young | | | | | [place], [place] | [place], [place] | | | | | [address] | [address] | | | | | [phone] | [phone] | | | | | | | [...] | | | | | [address] [facility] | | | | | | [address] | | | | | | | [...]
--- OUTSIDE RECORDS SUMMARY | ~2020-05-08 | XMS | Encounter Summary ---
Demographics + + + | Address | [address] | | | [place] [address] | + + + | Home Phone [...] Providers + +------+ + | Care Hand Assembler Name | Role | Phone | [...] + + | 08/10/ | Telephone | [facility] | Brian Orosco MD | Other (orders ) | | 2019 | | VASCULAR SURGERY | [address] | | | | | [address] [place] | [place], [place] | | | | | [place], [place] | [address] | | | | | [address] | [phone] | | | | | [phone] | | | +--------+ + + + [...] 2020 | Visit | | [address] [facility] | | | | | | 160 [place], [place] | | | | | | [address] | | | | | | | | +--------+---------+ + + + documented as of this encounter Visit Diagnoses Not on filedocumented in this encounter"
--- OUTSIDE RECORDS SUMMARY | ~2020-05-08 | XMS | Encounter Summary ---
Demographics + + + | Address | [address] | | | [place] [address] | + + + | Home Phone [...] Team Providers + +------+ + | Care Museum Librarian Name | Role | Phone | + +------+ + | Mehrdad Bergman | PCP | | + +------+ + Encounter Details +--------+ + + + + | Date | Type | Department | Care Team | Description | +--------+ + + + + | 03/16/ | Orders Only | [facility] | Trisha Conner DNP | | | 2020 | | VASCULAR SURGERY | [address] | | | | | [address] [place] | [place] | | | | | E [place], [place] | [address] | | | | | [address] | | | | | | [phone] | | | +--------+ + + + [...] documented as of this encounter Progress Notes Trisha Conner DNP - 03/16/2020 1:45 PM PDTPatient called reporting worsening right hand crampi ng for the past 2 months, pain is not constant but happens daily. Pain improves with pain me dication and heating pad. Offered patient follow up appointment with ultrasound next week, p christiantulio adamantly declined. He does not want to come to [facility] until the pandemic is over . Discussed [...] Farrukh Acuna MD | | 2019 | Visit | | [address] [place] | | | | | | [address] [place] | | | | | | [address] | | | | | | | | +--------+---------+ + + + documented as of this encounter Visit Diagnoses Not on filedocumented in this encounter"
--- OUTSIDE RECORDS SUMMARY | ~2020-05-08 | XMS | Encounter Summary ---
Demographics + + + | Address | [address] | | | [place] [address] | + + + | Home Phone [...] Providers + +------+ + | Care Assembler Handbags Name | Role | Phone | + +------+ + | Rahul Silva MD | PCP | | + +------+ + Encounter Details +--------+ + + + + | Date | Type | Department | Care Team | Description | +--------+ + + + + | 07/18/ | Orders Only | [facility] | Conversion | | | 2015 | | NEPHROLOGY [place] | Transaction, | | | | | [address] [facility] | Provider Unknown | | | | | [place] | [phone] | | | | | [address] | | | | | | [phone] | | | +--------+ + + + [...] | Visit | | [address] [facility] [place] | | | | | | 160 [place], [place] | | | | | | [address] | | | | | | | [...] - 1.030 | EXTERNAL | | | [place], | | | LAB | | | [...]
--- OUTSIDE RECORDS SUMMARY | ~2020-05-08 | XMS | Encounter Summary ---
Demographics + + + | Address | [address] | | | [place] [address] | + + + | Home Phone [...] Providers + +------+ + | Care Senior Procurement Manager Name | Role | Phone | [...] N Young | | | | | [place], [place] | [place], [place] | | | | | [address] | [address] | | | | | [phone] | [phone] | | | | | | | [...] | | | | [address] [facility] | | | | | | [address] | | | | | | | [...]
--- OUTSIDE RECORDS SUMMARY | ~2020-05-08 | XMS | Encounter Summary ---
Demographics + + + | Address | [address] | | | [place] [address] | + + + | Home Phone [...] Providers + +------+ + | Care Oracle Database Manager Name | Role | Phone | [...] + | 09/17/ | Documentati | [facility] | Oly Alvarenga | Labs Only ([facility] | | 2019 | on | NEPRHOLOGY [place] | V, Medical | 08/24/19) | | | | [address] | Geochemist | | | | | [address] [place], [place] | | | | | | [address] | | | | | | [phone] | | | +--------+ + + + [...] 2020 | Visit | | [address] [facility] | | | | | | 160 [place], [place] | | | | | | [address] | | | | | | | [...] + | REFERENCE LAB | [address] [facility] | [place] | [phone] | | [facility] | | [address] | | + + + + + | REFERENCE LAB | [facility] [place] | [place] | [phone] | | [facility] | | [address] | | + + + + + documented in this encounter Visit Diagnoses Not on filedocumented in this encounter"
--- OUTSIDE RECORDS SUMMARY | ~2020-05-08 | XMS | Encounter Summary ---
Demographics + + + | Address | [address] | | | [place] [address] | + + + | Home Phone [...] [place] | | | | | [address] | | + + + + + Care Team Providers + +------+ + | Care Internal Wholesaler Name | Role | Phone | + [...] Vyas | | | | | | [address] | | | | | | [place], [place] | | | | | | [address] | | | | | | [phone] | | | +--------+ + + + [...] as of this encounter Progress Notes Interface, Gourmet Coffee Attendant In - 02/14/2007 3:12 AM PDT [address] [address] or September 09, 1996 Nestor VALLES MD [address] [place] [address] RE: PORFIRIO ZAVALA MR#: [id number] Valles: Your patient, Porfirio Zavala, was seen for follow up today in the Neurosurgery Clinic at [facility]. 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 Following our initial evaluation, we recommended [...] Fellow, Neurosurgery Alina Moise M.D. Professor and Mortuary Operations Manager, Division of Neurosurgery HECTOR/hiro documented in this encounter Plan of Treatment Not on filedocumented as of this encounter Visit Diagnoses Not on filedocumented in this encounter"
--- OUTSIDE RECORDS SUMMARY | ~2020-05-08 | XMS | Encounter Summary ---
Demographics + + + | Address | [address] | | | [place] [address] | + + + | Home Phone [...] Team Providers + +------+ + | Care Shredded Filler Machine Wrapper Layer Name | Role | Phone | + +------+ + PCP | Unavailable | + +------+ + Encounter Details +--------+ + + + + | Date | Type | Department | Care Team | Description | +--------+ + + + + | 07/18/ | [facility] | [facility] | Nelson Lutz MD | | | 2002 | Encounter | MED CTR GENERIC OP | [address], [place] | | | | | CONV DEPT [address] | [address] [place] | | | | | [place], | [address] | | | | | [place] [address] | | | | | | [phone] | | | +--------+ + + + [...] [facility] | | | | | | [address] [place] | | | | | | [address] | | | | | | | | +--------+---------+ + + + documented as of this encounter Visit Diagnoses Not on filedocumented in this encounter"
--- OUTSIDE RECORDS SUMMARY | ~2020-05-08 | XMS | Encounter Summary ---
Demographics + + + | Address | [address] | | | [place] [address] | + + + | Home Phone [...] Team Providers + +------+ + | Care Hall Manager Name | Role | Phone | [...] | sleep apnea) | | | | [place] Tonya Castaneda, | [address] | (Primary Dx); COPD | | | | [place] [address] | [address] | (chronic obstructive | | | | [phone] | | pulmonary disease) | | | [...] 2019 | Visit | | [address] [facility] | | | | | | [address] [place], [place] | | | | | | [address] | | | | | | | [...]
--- OUTSIDE RECORDS SUMMARY | ~2020-05-08 | XMS | Encounter Summary ---
Demographics + + + | Address | [address] | | | [place] [address] | + + + | Home Phone [...] Team Providers + +------+ + | Care Transmission Builder Name | Role | Phone | [...] N Young | | | | | [place], [place] | [place], [place] | | | | | [address] | [address] | | | | | [phone] | [phone] | | | | | | | [...] | | | | | | [facility] | | | | | | [address] | | | | | | | [...]
--- OUTSIDE RECORDS SUMMARY | ~2020-05-08 | XMS | Encounter Summary ---
Demographics + + + | Address | [address] | | | [place] [address] | + + + | Home Phone [...] Team Providers + +------+ + | Care Compressed Yeast Supervisor Name | Role | Phone | + +------+ + | Rahul Silva MD | PCP | | + +------+ + Encounter Details +--------+ + + + + | Date | Type | Department | Care Team | Description | +--------+ + + + + | 10/05/ | Orders Only | [facility] | Farrukh Acuna MD | Essential | | 2019 | | NEPHROLOGY [place] | [address] [place] | hypertension | | | | [address] | [address] [place], [place] | (Primary Dx); Iron | | | | [address] | [address] | deficiency; Anemia | | | | [place], [place] | | of chronic kidney | | | | [address] | | failure, stage 5 | | | | [phone] | | (HCC) | +--------+ + + [...] | | | | | | [address] [place], [place] | | | | | | [address] | | | | | | | [...]
--- OUTSIDE RECORDS SUMMARY | ~2020-05-08 | XMS | Encounter Summary ---
Demographics + + + | Address | [address] | | | [place] [address] | + + + | Home Phone [...] Team Providers + +------+ + | Care Shredder/Granulator Operator Name | Role | Phone | + +------+ + | Rahul Silva MD | PCP | | + +------+ + Encounter Details +--------+ + + + + | Date | Type | Department | Care Team | Description | +--------+ + + + + | 10/10/ | Orders Only | [facility] | Farrukh Acuna MD | | | 2013 | | NEPHROLOGY [place] | [address] [place] | | | | | [address] [place] | [address] [place], [place] | | | | | [address] [place], [place] | [address] | | | | | [address] | | | | | | [phone] | | | +--------+ + + + [...] | | | | | | [address] [place] | | | | | | [address] | | | | | | | [...] | | | LAB | | | GHANAIAN | | | | | + + [...]
--- OUTSIDE RECORDS SUMMARY | ~2020-05-08 | XMS | Encounter Summary ---
Demographics + + + | Address | [address] | | | [place] [address] | + + + | Home Phone [...] Providers + +------+ + | Care Laborer Rags Name | Role | Phone | + +------+ + | Rahul Silva MD | PCP | | + +------+ + Encounter Details +--------+ + + + + | Date | Type | Department | Care Team | Description | +--------+ + + + + | 10/08/ | Orders Only | [facility] | Farrukh Acuna MD | | | 2018 | | NEPHROLOGY [place] | [address] [place] | | | | | [address] [place] | [address] [place], [place] | | | | | [address] [place], [place] | [address] | | | | | [address] | | | | | | [phone] | | | +--------+ + + + [...] [place] | | | | | | [address] | | | | | | | [...] + + + | Red Blood | 3.44 (A) | 4.3 - 5.7 [...] | | | LAB | | | [facility] | | | | | + + [...]
--- OUTSIDE RECORDS SUMMARY | ~2020-05-08 | XMS | Encounter Summary ---
Demographics + + + | Address | [address] | | | [place] [address] | + + + | Home Phone [...] Providers + +------+ + | Care Rn Paralegal Name | Role | Phone | + +------+ + | Mehrdad Bergman | PCP | | + +------+ + Encounter Details +--------+ + + + + | Date | Type | Department | Care Team | Description | +--------+ + + + + | 03/27/ | Virtual | [facility] | Farrukh Acuna MD | CKD (chronic kidney | | 2019 | Office | NEPHROLOGY [place] | [address] [place] | disease) stage 5, | | | Visit | [address] | [address] [place], [place] | GFR less than 15 | | | | [address] | [address] | ml/min (HCC) | | | | [place], [place] | | (Primary Dx); Anemia | | | | [address] | | of chronic kidney | | | | [phone] | | failure, stage 5 | | [...] insulin | | | | | | ([facility]); Secondary | | | | | | hyperparathyroidism | | | | | | ([facility]); Essential | | | | | | [...] done before [facility]. documented in this encounter Progress Notes [...] 10/2016 with severe pneumonia, severe ZEKE; needed SPECIFICATION WRITER for ~5 weeks b efore renal function recovery mid 12/2016. He was admitted to [facility] for 3 nights in July 2016 for [...] 10/2016 with severe pneumonia, severe ZEKE; needed SPECIFICATION WRITER for ~5 weeks b efore renal function [...] Also: I see no need for acute SPECIFICATION WRITER. I see no need to send him [...] or concerns. Truly yours, Farrukh Acuna MD [facility] This exam was initially conducted via a secure 256-bit AES encrypted bidirectional video se ssion. You have chosen to receive care through the use of telemedicine. Telemedicine enables [facility] care providers at different locations to provide [...] they are located in a state where Farrukh Guerra MD am licensed. documented in this enco unter Plan of Treatment +--------+---------+ + + + | Date | Type | Specialty | Care Team | Description | +--------+---------+ + + + | 06/05/ | Office | Nephrology | Farrukh Acuna MD | | 2019 | Visit | | [address] [facility] | | | | | | [address] [place], [place] | | | | | | [address] | | | | | | | | +--------+---------+ + + + documented as of this encounter Visit Diagnoses + + | Diagnosis | + + | CKD (chronic kidney disease) stage 5, GFR less than 15 ml/min ([facility]) - Primary Chronic | | kidney disease, Stage V | + + | Anemia of chronic kidney failure, stage 5 ([facility]) | + + | Edema of lower [...]
--- OUTSIDE RECORDS SUMMARY | ~2020-05-08 | XMS | Encounter Summary ---
Demographics + + + | Address | [address] | | | [place] [address] | + + + | Home Phone [...] Team Providers + +------+ + | Care Molder Name | Role | Phone | [...] N Young | | | | | [place], [place] | [place], [place] | | | | | [address] | [address] | | | | | [phone] | [phone] | | | | | | | [...] [address] [facility] | | | | | | [address] | | | | | | | [...]
--- OUTSIDE RECORDS SUMMARY | ~2020-05-08 | XMS | Encounter Summary ---
Demographics + + + | Address | [address] | | | [place] [address] | + + + | Home Phone [...] Team Providers + +------+ + | Care Plush Cutter Name | Role | Phone | + +------+ + | Rahul Silva MD | PCP | | + +------+ + Encounter Details +--------+ + + + + | Date | Type | Department | Care Team | Description | +--------+ + + + + | 05/27/ | Orders Only | [facility] | Farrukh Acuna MD | | | 2019 | | NEPHROLOGY [place] | [address] [place] | | | | | [address] [place] | [address] [place], [place] | | | | | [address] [place], [place] | [address] | | | | | [address] | | | | | | [phone] | | | +--------+ + + + [...] [place] | | | | | | [address] | | | | | | | [...] + + + | Red Blood | 3.58 (A) | 4.3 - 5.7 [...]
--- OUTSIDE RECORDS SUMMARY | ~2020-05-08 | XMS | Encounter Summary ---
Demographics + + + | Address | [address] | | | [place] [address] | + + + | Home Phone [...] Team Providers + +------+ + | Care Headstart Teacher Name | Role | Phone | + +------+ + | Rahul Silva MD | PCP | | + +------+ + Encounter Details +--------+ + + + + | Date | Type | Department | Care Team | Description | +--------+ + + + + | 07/14/ | Orders Only | [facility] | Conversion | | | 2018 | | NEPRHOLOGY [place] | Transaction, | | | | | [address] | Provider Unknown | | | | | [address] [place], [place] | [phone] | | | | | [address] | (Fax) | | | | | [phone] | | | +--------+ + + + [...] HOSPITAL[facility] | | | | | | [address] | | | | | | | [...]
--- OUTSIDE RECORDS SUMMARY | ~2020-05-08 | XMS | Encounter Summary ---
Demographics + + + | Address | [address] | | | [place] [address] | + + + | Home Phone [...] + + + | Author | [facility] | + + + | Organization | [facility] | + + + | Address | Unknown | + + + | Phone | Unavailable | + + + Support + + + + + | Name | Relationship | Address | Phone | + + + + + | Darci Andujar | VALERIE | [place] | | | | | [address] | | + + + + + Care Team Providers + +------+ + | Care Flight Attendant/Inflight Manager Name | Role | Phone | [...] Clinic | | | | | | [facility], [address] | | | | | | [place], [place] | | | | | | [address] | | | | | | [phone] | | | +--------+ + + + [...] as of this encounter Progress Notes Interface, Seed Cone Picker In - 12/25/2006 5:00 AM [facility] DATE: 03/16/98 PLASTIC SURGERY CLINIC [...] in the near future. Galo Arora M.D. Robotic Weld Technician, Division of Plastic & Reconstructive Surgery AYDEE/alfred documented in this encounter Plan of Treatment Not on filedocumented as of this encounter Visit Diagnoses Not on filedocumented in this encounter"
--- OUTSIDE RECORDS SUMMARY | ~2020-05-08 | XMS | Encounter Summary ---
Demographics + + + | Address | [address] | | | [place] [address] | + + + | Home Phone [...] Providers + +------+ + | Care Office Spec Name | Role | Phone | + +------+ + | Rahul Silva MD | PCP | | + +------+ + Encounter Details +--------+ + + + + | Date | Type | Department | Care Team | Description | +--------+ + + + + | 09/17/ | Orders Only | [facility] | Collin Mirza, | | | 2015 | | NEPHROLOGY [place] | MINIBUS DRIVER [address] | | | | | [address] | [address] | | | | | [address] [place], [place] | [facility] | | | | | [address] | [address] | | | | | [phone] | [phone] | | | | | | | [...] | | | | | | [address] [facility] | | | | | | [address] | | | | | | | [...] | | | LAB | | | ALGERIAN | | | | | + + [...]
--- OUTSIDE RECORDS SUMMARY | ~2020-05-08 | XMS | Encounter Summary ---
Demographics + + + | Address | [address] | | | [place] [address] | + + + | Home Phone [...] Team Providers + +------+ + | Care Seeing Eye Dog Teacher Name | Role | Phone | [...] [address] | | | | | [place], [place] | [place], [place] | | | | | [address] | [address] | | | | | [phone] | [phone] | | | | | | | [...] HOSPITAL[facility] | | | | | | [address] | | | | | | | [...]
--- OUTSIDE RECORDS SUMMARY | ~2020-05-08 | XMS | Encounter Summary ---
Demographics + + + | Address | [address] | | | [place] [address] | + + + | Home Phone [...] [place] | | | | | [address] | | + + + + + Care Team Providers + +------+ + | Care General Education Instructor Name | Role | Phone | + +------+ + PCP | Unavailable | + +------+ + Encounter Details +--------+ + + + + | Date | Type | Department | Care Team | Description | +--------+ + + + + | 04/06/ | Procedure - | Digestive Health | Record, Operation | Operative Report | | 1997 | | [facility] | | | | | Transcribed | [address] | | | | | | Mailcode: [facility] | | | | | | [facility] | | | | | | Healing, Building [address] | | | | | | [facility] [place] | | | | | | [address] | | | | | | [phone] | | | +--------+ + + + [...] + + | 04/06/1998 12:00 AM PDT [place] | | [facility] | | [address] [place], [place] [address] | | [facility] | | | | OPERATION RECORD | | | | Med Rec No.: [id number] Date: 04/06/98 | | | | Name: Con Kavon Morris | | | | | | ATTENDING SURGEON: | | Galo Arora M.D. | | Missile Technician, | | Division of Plastic & | | Reconstructive Surgery | | PAVER LAYER(S): | | Barry Fofana M.D. | | [...] | | Galo Arora M.D. | | Missile Technician, | | Division of Plastic & | | Reconstructive Surgery | | WOJCIECH/pita | | | | P | | C: 05/12/98 lv | | cc: | | | + + documented in this encounter Visit Diagnoses Not on filedocumented in this encounter"
--- OUTSIDE RECORDS SUMMARY | ~2020-05-08 | XMS | Encounter Summary ---
Demographics + + + | Address | [address] | | | [place] [address] | + + + | Home Phone [...] Team Providers + +------+ + | Care Canal Structure Operator Name | Role | Phone | + +------+ + | Rahul Silva MD | PCP | | + +------+ + Encounter Details +--------+ + + + + | Date | Type | Department | Care Team | Description | +--------+ + + + + | 12/19/ | Orders Only | [facility] | Conversion | | | 2016 | | NEPHROLOGY [place] | Transaction, | | | | | [address] | Provider Unknown | | | | | [address] [place] | | | | | | [address] | (Fax) | | | | | [phone] | | | +--------+ + + + [...] | | | | [address] [facility] | | | | | | [address] | | | | | | | [...]
--- OUTSIDE RECORDS SUMMARY | ~2020-05-08 | XMS | Encounter Summary ---
Demographics + + + | Address | [address] | | | [place] [address] | + + + | Home Phone [...] Team Providers + +------+ + | Care City Route Driver Name | Role | Phone | + +------+ + | Rahul Silva MD | PCP | | + +------+ + Encounter Details +--------+ + + + + | Date | Type | Department | Care Team | Description | +--------+ + + + + | 09/07/ | Orders Only | [facility] | Farrukh Acuna MD | | | 2018 | | NEPRHOLOGY [place] | [address] | | | | | [address] | [address] [place], [place] | | | | | [address] [place], [place] | [address] | | | | | [address] | | | | | | [phone] | | | +--------+ + + + [...] [place] | | | | | | [address] | | | | | | | [...]
--- OUTSIDE RECORDS SUMMARY | ~2020-05-08 | XMS | Encounter Summary ---
Demographics + + + | Address | [address] | | | [place] [address] | + + + | Home Phone [...] Providers + +------+ + | Care Automotive Sales Professional Name | Role | Phone | [...] [address] | | | | | [place], [place] | [place], [place] | | | | | [address] | [address] | | | | | [phone] | [phone] | | | | | | | [...] | | | | | [address] [facility] | | | | | | [address] | | | | | | | [...]
--- OUTSIDE RECORDS SUMMARY | ~2020-05-08 | XMS | Encounter Summary ---
Demographics + + + | Address | [address] | | | [place] [address] | + + + | Home Phone [...] Providers + +------+ + | Care Epic Manager Name | Role | Phone | [...] | sleep apnea) | | | | [place]a Castaneda, | [place] | (Primary Dx); COPD | | | | [place] [address] | [address] | (chronic obstructive | | | | [phone] | | pulmonary disease) | | | [...] 2019 | Visit | | [address] [facility] | | | | | | [address] [place], [place] | | | | | | [address] | | | | | | | [...]
--- OUTSIDE RECORDS SUMMARY | ~2020-05-08 | XMS | Encounter Summary ---
Demographics + + + | Address | [address] | | | [place] [address] | + + + | Home Phone [...] Team Providers + +------+ + | Care Retail Financial Analyst Name | Role | Phone | + +------+ + | Rahul Silva MD | PCP | | + +------+ + Encounter Details +--------+ + + + + | Date | Type | Department | Care Team | Description | +--------+ + + + + | 10/03/ | Orders Only | [facility] | Conversion | | | 2015 | | NEPRHOLOGY [place] | Transaction, | | | | | [address] | Provider Unknown | | | | | [address] [place], [place] | [phone] | | | | | [address] | (Fax) | | | | | [phone] | | | +--------+ + + + [...] | | | | | | [address] [facility] | | | | | | [address] | | | | | | | [...]
--- OUTSIDE RECORDS SUMMARY | ~2020-05-08 | XMS | Encounter Summary ---
Demographics + + + | Address | [address] | | | [place] [address] | + + + | Home Phone [...] [place] | | | | | [address] | | + + + + + Care Team Providers + +------+ + | Care Automatic Mold Sander Name | Role | Phone | + [...] [id number] | | | | | | Avenue, [place] | | | | | | [address] | | | | | | [phone] | | | +--------+ + + + [...] [facility] | [address] | [place] [address] | | | PATHOLOGY | [address] [...] [facility] | [address] | [place] [address] | | | PATHOLOGY | [address] | | | + + + + + documented in this encounter Visit Diagnoses Not on filedocumented in this encounter"
--- OUTSIDE RECORDS SUMMARY | ~2020-05-08 | XMS | Encounter Summary ---
Demographics + + + | Address | [address] | | | [place] [address] | + + + | Home Phone [...] [place] | | | | | [address] | | + + + + + Care Team Providers + +------+ + | Care Fuels Sales Representative Name | Role | Phone [...] as of this encounter Progress Notes Interface, Hat Brusher Machine In - 11/10/2006 2:27 AM PSTCLINIC DATE: [...] he embarked on this. Galo Arora M.D. Registration Rep, Plastic and Reconstructive Surgery WOJCIECH / [id number] / [id number] / [id number] cc: Nelson Melara M.D. Anesthesiology. [facility]. [id number] signed by Interface, Hat Brusher Machine In at 11/10/2006 2:27 AM PSTdocume nted in this encounter Plan of Treatment Not on filedocumented as of this encounter Visit Diagnoses Not on filedocumented in this encounter"
--- OUTSIDE RECORDS SUMMARY | ~2020-05-08 | XMS | Encounter Summary ---
Demographics + + + | Address | [address] | | | [place] [address] | + + + | Home Phone [...] Team Providers + +------+ + | Care Chicken Stuffer Name | Role | Phone | [...] [address] | | | | | [place], [place] | [place], [place] | | | | | [address] | [address] | | | | | [phone] | [phone] | | | | | | | [...] [place] | | | | | | [address] | | | | | | | [...]
--- OUTSIDE RECORDS SUMMARY | ~2020-05-08 | XMS | Encounter Summary ---
Demographics + + + | Address | [address] | | | [place] [address] | + + + | Home Phone [...] [place] | | | | | [address] | | + + + + + Care Team Providers + +------+ + | Care Shirring Machine Operator Name | Role | Phone [...] Vyas | | | | | | [facility], [address] [place] [address] | | | | | | [place], [place] | | | | | | [address] | | | | | | [phone] | | | +--------+ + + + [...] as of this encounter Discharge Summaries Interface, Music Typographer In - 12/22/2006 3:12 AM PST [address] [address] [facility] MEDICAL SUMMARY OF HOSPITALIZATION Med Rec No.: [id number] Admission Date: 04/06/98 Name: Kavon Andujar Discharge Date: 04/08/98 STAFF PHYSICIAN: Galo Arora M.D. Boat Camp Operator, Division of Plastic & Reconstructive Surgery [...] Management team. DISCHARGE INSTRUCTION(S): Followup: In Dr. Arroa's clinic in one week. Barry Fofana M.D. Resident, Plastic Surgery Galo Arora M.D. Boat Camp Operator, Division of Plastic & Reconstructive Surgery QIANA/charo P cc: GRIFFIN ASHER MD [address] [facility] [place] [address] documented in this encounter Plan of Treatment Not on filedocumented as of this encounter Visit Diagnoses Not on filedocumented in this encounter"
--- OUTSIDE RECORDS SUMMARY | ~2020-05-08 | XMS | Encounter Summary ---
Demographics + + + | Address | [address] | | | [place] [address] | + + + | Home Phone [...] Providers + +------+ + | Care Well Control Instructor Name | Role | Phone | + +------+ + | Rahul Silva MD | PCP | | + +------+ + Encounter Details +--------+ + + + + | Date | Type | Department | Care Team | Description | +--------+ + + + + | 05/22/ | Orders Only | [facility] | Farrukh Acuna MD | | | 2018 | | NEPHROLOGY [place] | [address] [place] | | | | | [address] [place] | [address] [place], [place] | | | | | [address] [place], [place] | [address] | | | | | [address] | | | | | | [phone] | | | +--------+ + + + [...] — [place] | | | | | | [address] [place] [address] | | | | | | [address] | | | | | | | [...] + + + | Red Blood | 3.8 (A) | 4.3 - 5.7 [...]
--- OUTSIDE RECORDS SUMMARY | ~2020-05-08 | XMS | Encounter Summary ---
Demographics + + + | Address | [address] | | | [place] [address] | + + + | Home Phone [...] Providers + +------+ + | Care File System Installer Name | Role | Phone | [...] | | | [address] | [place] [address] | | | | | [place] [address] | | | | | | [phone] | | | +--------+ + + + [...] | | | | | | [address] [place] | | | | | | [address] | | | | | | | [...]
--- OUTSIDE RECORDS SUMMARY | ~2020-05-08 | XMS | Encounter Summary ---
Demographics + + + | Address | [address] | | | [place] [address] | + + + | Home Phone [...] Team Providers + +------+ + | Care Surgery Center Administrator Name | Role | Phone | + +------+ + | Rahul Silva MD | PCP | | + +------+ + Encounter Details +--------+ + + + + | Date | Type | Department | Care Team | Description | +--------+ + + + + | 07/14/ | Orders Only | [facility] | Conversion | | | 2018 | | NEPRHOLOGY [place] | Transaction, | | | | | [address] | Provider Unknown | | | | | [address] [place], [place] | [phone] | | | | | [address] | (Fax) | | | | | [phone] | | | +--------+ + + + [...] | | | | | | [address] [facility] | | | | | | [address] | | | | | | | [...]
--- OUTSIDE RECORDS SUMMARY | ~2020-05-08 | XMS | Encounter Summary ---
Demographics + + + | Address | [address] | | | [place] [address] | + + + | Home Phone [...] Providers + +------+ + | Care Mobile Product Manager Name | Role | Phone [...] + + | 07/21/ | Documentati | [facility] | Simon, | Results (07/19/19) | | 2019 | on | NEPHROLOGY [place] | [facility] | | | | | [address] | Social Group Worker | | | | | [address] [place], [place] | | | | | | [address] | | | | | | [phone] | | | +--------+ + + + [...] | | | | | | [address] [place], [place] | | | | | | [address] | | | | | | | [...]
--- OUTSIDE RECORDS SUMMARY | ~2020-05-08 | XMS | Encounter Summary ---
Demographics + + + | Address | [address] | | | [place] [address] | + + + | Home Phone [...] Providers + +------+ + | Care Family Preservation Officer Name | Role | Phone | [...] | Transaction, | | | | | [place], [place] | Provider Unknown | | | | | [address] | | | | | | [phone] | | | +--------+ + + + [...] 2020 | Visit | | [address] [facility] | | | | | | [address] [place] | | | | | | [address] | | | | | | | [...]
--- OUTSIDE RECORDS SUMMARY | ~2020-05-08 | XMS | Encounter Summary ---
Demographics + + + | Address | [address] | | | [place] [address] | + + + | Home Phone [...] Team Providers + +------+ + | Care Cement Mason Highways And Streets Name | Role | Phone | + +------+ + | Rahul Silva MD | PCP | | + +------+ + Encounter Details +--------+ + + + + | Date | Type | Department | Care Team | Description | +--------+ + + + + | 11/10/ | Orders Only | [facility] | Farrukh Acuna MD | | | 2017 | | NEPHROLOGY [place] | [address] [place] | | | | | [address] [place] | [address] [place], [place] | | | | | [address] [place], [place] | [address] | | | | | [address] | | | | | | [phone] | | | +--------+ + + + [...] [place] | | | | | | [address] | | | | | | | [...] + + + | Red Blood | 3.86 (A) | 4.3 - 5.7 [...] | | | LAB | | | [facility] | | | | | + + [...]
--- OUTSIDE RECORDS SUMMARY | ~2020-05-08 | XMS | Encounter Summary ---
Demographics + + + | Address | [address] | | | [place] [address] | + + + | Home Phone [...] [place] | | | | | [address] | | + + + + + Care Team Providers + +------+ + | Care Transfusion Aide Name | Role | Phone | [...] | | [address] | [place], | | | | | [address] | [place] [address] | | | | | [place] | [phone] | | | | | [address] | | | | | | [phone] | | | +--------+ + + + [...] | | | | | | a [place]Lu[place] catheter | | | | | | [...] | | | | placement of a [place]pe | | | | | | catheter. CHEST, | | | | | | SINGLE AP PORTABLE: | | | | | | 03-31-93 AT 1000 HOURS | | | | | | FINDINGS: Since the | | | | | | prior study, the | | | | | | [place] catheter has | | | | | [...] IMPRESSION: | | | | | | [place] catheter | | | | | | [...] The | | | | | | [place] catheter | | | | | | [...] and | | | | | | [place] catheter | | | | | | [...] endotracheal | | | | | | tube,[place] catheter | | | | | | [...] | | + +---------+ + + | [facility] DEPARTMENT OF | | | [...] [facility] | [address] | [place] [address] | | | PATHOLOGY | [address] | | | + + + + + documented in this encounter Visit Diagnoses Not on filedocumented in this encounter"
--- OUTSIDE RECORDS SUMMARY | ~2020-05-08 | XMS | Encounter Summary ---
Demographics + + + | Address | [address] | | | [place] [address] | + + + | Home Phone [...] [place] | | | | | [address] | | + + + + + Care Team Providers + +------+ + | Care Account Resolution Specialist Name | Role | Phone | + +------+ + PCP | Unavailable | + +------+ + Encounter Details +--------+ + + + + | Date | Type | Department | Care Team | Description | +--------+ + + + + | 12/22/ | Results | | Other, Faculty | | | 1997 | Only | | [phone] | | +--------+ + + + + [...] | | | | | | 12/22/96 [id number] hours. | | | | | | [...] | | + +---------+ + + | [facility] DEPARTMENT OF | | | [...] | | | | | | | [id number] | | | | | | SPINE, [...] | | + +---------+ + + | [facility] DEPARTMENT OF | | | | | RADIOLOGY | | | | + +---------+ + + documented in this encounter Visit Diagnoses Not on filedocumented in this encounter"
--- OUTSIDE RECORDS SUMMARY | ~2020-05-08 | XMS | Encounter Summary ---
Demographics + + + | Address | [address] | | | [place] [address] | + + + | Home Phone | | + + + | Preferred Language | Unknown | + + + | Marital Status | Single | + + + | Synagogue Affiliation | PRO | + + + [...] | + + + + + | Draci Andujar | [place] | [place] | | | | | [address] | | + + + + + Care Team Providers + +------+ + | Care Social Welfare Research Worker Name | Role | Phone | [...] [address] | | | | | | [place], [place] | | | | | | [address] | | | | | | [phone] | | | +--------+ + + + [...]
--- OUTSIDE RECORDS SUMMARY | ~2020-05-08 | XMS | Encounter Summary ---
Demographics + + + | Address | [address] | | | [place] [address] | + + + | Home Phone [...] + +------+ + | Care Director Of Staff Development Name | Role | Phone | + +------+ + | Rahul Silva MD | PCP | | + +------+ + Reason for Visit +--------+ + | Reason | Comments | +--------+ + | Other | Blood pressure concern. | +--------+ + Encounter Details +--------+ + + + + | Date | Type | Department | Care Team | Description | +--------+ + + + + | 12/07/ | Telephone | [facility] | Farrukh Acuna MD | Other (Blood | | 2019 | | NEPHROLOGY [place] | [address] [place] | pressure concern. ) | | | | [address] [place] | [address] [place], [place] | | | | | [address] [place], [place] | [address] | | | | | [address] | | | | | | [phone] | | | +--------+ + + + [...] [place] | | | | | | [address] | | | | | | | | +--------+---------+ + + + documented as of this encounter Visit Diagnoses Not on filedocumented in this encounter"
--- OUTSIDE RECORDS SUMMARY | ~2020-05-08 | XMS | Encounter Summary ---
Demographics + + + | Address | [address] | | | [place] [address] | + + + | Home Phone [...] Team Providers + +------+ + | Care Protection Agent Name | Role | Phone | [...] + + | 09/01/ | Telephone | [facility] | Brian Orosco MD | Advice Only | | 2019 | | VASCULAR SURGERY | [address] | (surgery) | | | | [address] [place] | [place], [place] | | | | | [place], [place] | [address] | | | | | [address] | [phone] | | | | | [phone] | | | +--------+ + + + [...] [place] | | | | | | [address] | | | | | | | | +--------+---------+ + + + documented as of this encounter Visit Diagnoses Not on filedocumented in this encounter"
--- OUTSIDE RECORDS SUMMARY | ~2020-05-08 | XMS | Encounter Summary ---
Demographics + + + | Address | [address] | | | [place] [address] | + + + | Home Phone [...] Team Providers + +------+ + | Care Informal Waiter/Waitress Name | Role | Phone | + [...] + + | 10/20/ | Telephone | [facility] | Alfred, | Mary (Tera F/U) | | 2018 | | NEPHROLOGY [place] | [facility] | | | | | [address] | Numerical Control Drill Press Operator | | | | | [address] | | | | | | [place] | | | | | | [address] | | | | | | [phone] | | | +--------+ + + + [...] | [address] [facility] [place] | | | | | | [address] | | | | | | | | +--------+---------+ + + + documented as of this encounter Visit Diagnoses Not on filedocumented in this encounter"
--- OUTSIDE RECORDS SUMMARY | ~2020-05-08 | XMS | Encounter Summary ---
Demographics + + + | Address | [address] | | | [place] [address] | + + + | Home Phone [...] Providers + +------+ + | Care Rn Cardiovascular Icu Name | Role | Phone | + [...] [address] | | | | | [place], [place] | [place], [place] | | | | | [address] | [address] | | | | | [phone] | [phone] | | | | | | | [...] 2020 | Visit | | [address] [facility] | | | | | | [address] [facility] | | | | | | [address] | | | | | | | [...]
--- OUTSIDE RECORDS SUMMARY | ~2020-05-08 | XMS | Encounter Summary ---
Demographics + + + | Address | [address] | | | [place] [address] | + + + | Home Phone [...] Providers + +------+ + | Care Hearing Impaired Itinerant Teacher Name | Role | Phone | + +------+ + | Rahul Silva MD | PCP | | + +------+ + Encounter Details +--------+ + + + + | Date | Type | Department | Care Team | Description | +--------+ + + + + | 07/06/ | Orders Only | [facility] | Farrukh Acuna MD | | | 2018 | | NEPRHOLOGY [place] | [address] | | | | | [address] | [address] [place], [place] | | | | | [address] [place], [place] | [address] | | | | | [address] | | | | | | [phone] | | | +--------+ + + + [...] [place] | | | | | | [address] | | | | | | | [...] | | | LAB | | | F[facility] | | | | | + + [...]
--- OUTSIDE RECORDS SUMMARY | ~2020-05-08 | XMS | Encounter Summary ---
Demographics + + + | Address | [address] | | | [place] [address] | + + + | Home Phone [...] Team Providers + +------+ + | Care Pen Rider Name | Role | Phone | [...] [address] | | | | | [place], [place] | [place] [address] | | | | | [address] | | | | | | [phone] | (Fax) | | +--------+ + + [...] | | | | | | [address] [facility] [place] | | | | | | [address] | | | | | | | [...] pressures of 5-10mmHg. MEASUREMENTS | | | Pitch Worker: MARLENA Authenticated by: KAI BIRMINGHAM MD Report [...] venous pressures of 5-10mmHg. | | MEASUREMENTS Pitch Worker: DHAuthenticated by: KAI BIRMINGHAM [facility] | | Date/Time: 03-27-2016 13:39:46 IMPRESSION: 1. [...] | |MEASUREMENTS | | | | | |Pitch Worker: MARLENA | |Authenticated by: KAI BIRMINGHAM MD [...]
--- OUTSIDE RECORDS SUMMARY | ~2020-05-08 | XMS | Encounter Summary ---
Demographics + + + | Address | [address] | | | [place] [address] | + + + | Home Phone [...] Team Providers + +------+ + | Care Concrete Finisher Name | Role | Phone | + +------+ + | Rahul Silva MD | PCP | | + +------+ + Encounter Details +--------+ + + + + | Date | Type | Department | Care Team | Description | +--------+ + + + + | 09/01/ | Orders Only | [facility] | Farrukh Acuna MD | | | 2013 | | NEPHROLOGY [place] | [address] [place] | | | | | [address] [place] | [address] [place], [place] | | | | | [address] [place], [place] | [address] | | | | | [address] | | | | | | [phone] | | | +--------+ + + + [...] | | | | | | [address] [place] | | | | | | [address] | | | | | | | [...] + + + | Red Blood | 3.82 (A) | 4.3 - 5.7 [...] | | | LAB | | | [place] | | | | | + + [...]
--- OUTSIDE RECORDS SUMMARY | ~2020-05-08 | XMS | Encounter Summary ---
Demographics + + + | Address | [address] | | | [place] [address] | + + + | Home Phone [...] Team Providers + +------+ + | Care Guide Dog Instructor Name | Role | Phone | [...] + + | 08/26/ | Office | [facility] | Trisha Conner DNP | CKD (chronic kidney | | 2019 | Visit | VASCULAR SURGERY | [address] | disease) stage 5, | | | | [address] | [place], [place] | GFR less than 15 | | | | [place], [place] | [address] | ml/min (HCC) | | | | [address] | | (Primary Dx) | | | | [phone] | Brian Orosco MD | | | | | | [address] | | | | | | [place], [place] | | | | | | [address] | | | | | | [phone] | | | | | | | [...] CV: No peripheral edema, rate regular SKIN: [place], warm, dry without rash/lesion MS: ROM not [...] 2019 | Visit | | [facility] | | | | | | [address] [place], [place] | | | | | | [address] | | | | | | | [...] stage 5, GFR less than 15 ml/min ([facility]) - Primary Chronic | | kidney disease, Stage V | + + documented in this encounter"
--- OUTSIDE RECORDS SUMMARY | ~2020-05-08 | XMS | Encounter Summary ---
Demographics + + + | Address | [address] | | | [place] [address] | + + + | Home Phone [...] Providers + +------+ + | Care Financial Investment Manager Name | Role | Phone | [...] + + | 09/28/ | Telephone | [facility] | Jason Sandy D, | Appointment | | 2018 | | VASCULAR SURGERY | RN | | | | | [address] | | | | | | [place] | | | | | | [address] | | | | | | [phone] | | | +--------+ + + + [...] | | | | | | [address] [place] | | | | | | [address] | | | | | | | | +--------+---------+ + + + documented as of this encounter Visit Diagnoses Not on filedocumented in this encounter"
--- OUTSIDE RECORDS SUMMARY | ~2020-05-08 | XMS | Encounter Summary ---
Demographics + + + | Address | [address] | | | [place] [address] | + + + | Home Phone [...] Team Providers + +------+ + | Care Incoming Inspector Name | Role | Phone | [...] | | | [address] | [place] [address] | | | | | [place] [address] | | | | | | [phone] | | | +--------+ + + + [...] | | | | | | [address] [place] | | | | | | [address] | | | | | | | [...]
--- OUTSIDE RECORDS SUMMARY | ~2020-05-08 | XMS | Clinical Summary ---
Demographics + + + | Address | [address] | | | [place] [address] | + + + | Home Phone [...] [facility] | + + + | Organization | [facility] | + + + | Address | Unknown | + + + | Phone | Unavailable | + + + Support + + + + + | Name | Relationship | Address | Phone | + + + + + | Darci Andujar | VALERIE | [place] | | | | | [address] | | + + + + + Care Team Providers + +------+ + | Care Community Marketing Coordinator Name | Role | Phone | + +------+ + | Rahul Silva MD | PCP | | + +------+ + Source Comments [place] is fully live on both [facility] Ambulatory and [facility] InPatient.[facility] Allergies No Known Allergies Medications + [...]
--- OUTSIDE RECORDS SUMMARY | ~2020-05-08 | XMS | Encounter Summary ---
Demographics + + + | Address | [address] | | | [place] [address] | + + + | Home Phone [...] Providers + +------+ + | Care Rental Car Porter Name | Role | Phone | [...] | | | MAR[address] VICTOR[address]ERRIL | [place] [address] | | | | | [place] [address] | | | | | | [phone] | | | +--------+ + + + [...] | | | | | | [address] [place] | | | | | | [address] | | | | | | | [...]
--- OUTSIDE RECORDS SUMMARY | ~2020-05-08 | XMS | Encounter Summary ---
Demographics + + + | Address | [address] | | | [place] [address] | + + + | Home Phone [...] [place] | | | | | [address] | | + + + + + Care Team Providers + +------+ + | Care Obiee Architect Name | Role | Phone | + +------+ + PCP | Unavailable | + +------+ + Encounter Details +--------+ + + + + | Date | Type | Department | Care Team | Description | +--------+ + + + + | 12/22/ | Results | | Other, Faculty | | | 1997 | Only | | [phone] | | +--------+ + + + + [...] | | | | | | 12/22/96 [id number] hours. | | | | | | [...] | | | | | | | [phone] | | | | | | SPINE, [...]
--- OUTSIDE RECORDS SUMMARY | ~2020-05-08 | XMS | Encounter Summary ---
Demographics + + + | Address | [address] | | | [place] [address] | + + + | Home Phone [...] [place] | | | | | [address] | | + + + + + Care Team Providers + +------+ + | Care Grooming Assistant Name | Role | Phone | [...] as of this encounter Progress Notes Interface, President Trust [employer] In - 11/10/2006 2:27 AM PSTCLINIC DATE: [...] he embarked on this. Galo Arora M.D. Hat Block Bench Hand, Plastic and Reconstructive Surgery WOJCIECH / [id number] / [id number] / 700 cc: Nelson Melara M.D. Anesthesiology. [facility]. [id number] signed by Interface, President Trust Company In at 11/10/2006 2:27 AM PSTdocume nted in this encounter Plan of Treatment Not on filedocumented as of this encounter Visit Diagnoses Not on filedocumented in this encounter"
--- OUTSIDE RECORDS SUMMARY | ~2020-05-08 | XMS | Encounter Summary ---
Demographics + + + | Address | [address] | | | [place] [address] | + + + | Home Phone [...] Team Providers + +------+ + | Care Right Of Way Manager Name | Role | Phone | [...] + + | 09/01/ | Telephone | [facility] | Farrukh Acuna MD | Other | | 2019 | | NEPRHOLOGY [place] | [address] | | | | | [address] | [address] [place], [place] | | | | | [address] [place], [place] | [address] | | | | | [address] | | | | | | [phone] | | | +--------+ + + + [...] | | | | | | [address] [place], [place] | | | | | | [address] | | | | | | | | +--------+---------+ + + + documented as of this encounter Visit Diagnoses Not on filedocumented in this encounter"
--- OUTSIDE RECORDS SUMMARY | ~2020-05-08 | XMS | Encounter Summary ---
Demographics + + + | Address | [address] | | | [place] [address] | + + + | Home Phone [...] Team Providers + +------+ + | Care Makeup Artistry Instructor Name | Role | Phone | + +------+ + | Rahul Silva MD | PCP | | + +------+ + Encounter Details +--------+ + + + + | Date | Type | Department | Care Team | Description | +--------+ + + + + | 07/11/ | Orders Only | [facility] | Farrukh Acuna MD | | | 2013 | | NEPHROLOGY [place] | [address] [place] | | | | | [address] [place] | [address] [place], [place] | | | | | [address] [place], [place] | [address] | | | | | [address] | | | | | | [phone] | | | +--------+ + + + [...] HOSPITAL[facility] | | | | | | [address] | | | | | | | [...] | | | LAB | | | ANDORRAN | | | | | + + [...] | + +-------+ + + + | Red Blood | 3.44 | 10 | EXTERNAL | | | Cells [...]
--- OUTSIDE RECORDS SUMMARY | ~2020-05-08 | XMS | Encounter Summary ---
Demographics + + + | Address | [address] | | | [place] [address] | + + + | Home Phone [...] [place] | | | | | [address] | | + + + + + Care Team Providers + +------+ + | Care Nurse Rn Bsn Name | Role | Phone | + [...] [id number] | | | | | | [place], [place] | | | | | | [address] | | | | | | [phone] | | | +--------+ + + + [...] | + + + + + | [facility] | [address] | [place] [address] | | | PATHOLOGY | [address] [...] | + + + + + | [facility] | [address] | [place] [address] | | | PATHOLOGY | [address] [...] OF | [address] | [place] [address] | | | PATHOLOGY | [address] | | | + + + + + SURGICAL PATHOLOGY (04/06/1998) + + + + + + | Component | Value | Ref Range | Performed | Pathologist | | | | | At | Signature | + + + + + + | SURGICAL | SOURCE OF SPECIMEN: SEE | | [facility] | | | PATHOLOGY | RESULTS | [...] | + + + + + | [facility] | [address] | [place] [address] | | | PATHOLOGY | [address] | | | + + + + + documented in this encounter Visit Diagnoses Not on filedocumented in this encounter
--- OUTSIDE RECORDS SUMMARY | ~2020-05-08 | XMS | Encounter Summary ---
Demographics + + + | Address | [address] | | | [place] [address] | + + + | Home Phone [...] Providers + +------+ + | Care Corporate Recruiter Name | Role | Phone | [...] + + | 01/10/ | Documentati | [facility] | Simon, | Results (01/07/20) | | 2020 | on | NEPHROLOGY [place] | [facility] | | | | | [address] | [place] | | | | | [address] [place], [place] | | | | | | [address] | | | | | | [phone] | | | +--------+ + + + [...] [place] | | | | | | [address] | | | | | | | | +--------+---------+ + + + documented as of this encounter Procedures + +--------+ + + + | Procedure Name | Priori | Date/Time | Associated Diagnosis | Comments | | | ty | | | | + +--------+ + + + | EXTERNAL LAB: ESA, | Routin | 01/07/2020 | | Results [...] + + + + | RBC | 3.02 (A) | 4.30 - 5.70 [...]
--- OUTSIDE RECORDS SUMMARY | ~2020-05-08 | XMS | Encounter Summary ---
Demographics + + + | Address | [address] | | | [place] [address] | + + + | Home Phone [...] Providers + +------+ + | Care Application Processor Name | Role | Phone | + +------+ + | Rahul Silva MD | PCP | | + +------+ + Encounter Details +--------+---------+ + + + | Date | Type | Department | Care Team | Description | +--------+---------+ + + + | 10/04/ | Office | [facility] | Farrukh Acuna MD | CKD (chronic kidney | | 2019 | Visit | NEPHROLOGY [place] | [address] [place] | disease) stage 5, | | | | [address] | [address] [place], [place] | GFR less than 15 | | | | [address] | [address] | ml/min (HCC) | | | | [place], [place] | | (Primary Dx); Anemia | | | | [address] | | of chronic kidney | | | | [phone] | | failure, stage 5 | | | | | | (HCC); Essential | | | | | | hypertension; Iron | | | | | | deficiency; | | | | | | Secondary | | | | | | hyperparathyroidism | | | | | | ([facility]); 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 He was admitted to [facility] for 3 nights in July 2016 [...] 19.5 (A) 05/27/2019 LABPROT 2,445.6 (A) 03/01/2019 [id number] 10/08/2018 Assessment: Mr. Andujar is a 78 y.o. male patient with stage IV CKD on a background of diabetes & hypert ension and recent hospitalization for C-diff and hehydration. The most likely pathology here is that of diabetic nephropathy +/- hypertensive nephrosclerosis/arteriolosclerosis. He was hospitalized in 10/2016 with severe pneumonia, severe ZEKE; needed RING CUTTER LATHE OPERATOR for ~5 weeks b efore renal [...] Also: I see no need for acute RING CUTTER LATHE OPERATOR. I see no need to send [...] 2019 | Visit | | [address] [facility] | | | | | | [address] [place], [place] | | | | | | [address] | | | | | | | | +--------+---------+ + + + documented as of this encounter Visit Diagnoses + + | Diagnosis | + + | CKD (chronic kidney disease) stage 5, GFR less than 15 ml/min ([facility]) - Primary Chronic | | [...]
--- OUTSIDE RECORDS SUMMARY | ~2020-05-08 | XMS | Encounter Summary ---
Demographics + + + | Address | [address] | | | [place] [address] | + + + | Home Phone [...] Providers + +------+ + | Care Balance Truer Name | Role | Phone | + +------+ + | Rahul Silva MD | PCP | | + +------+ + Encounter Details +--------+ + + + + | Date | Type | Department | Care Team | Description | +--------+ + + + + | 09/07/ | Orders Only | [facility] | Farrukh Acuna MD | | | 2018 | | NEPRHOLOGY [place] | [address] | | | | | [address] [place] | [address] [place], [place] | | | | | [address] [place], [place] | [address] | | | | | [address] | | | | | | [phone] | | | +--------+ + + + [...] [place] | | | | | | [address] | | | | | | | [...]
--- OUTSIDE RECORDS SUMMARY | ~2020-05-08 | XMS | Encounter Summary ---
Demographics + + + | Address | [address] | | | [place] [address] | + + + | Home Phone [...] Team Providers + +------+ + | Care Pharmacoepidemiologist Name | Role | Phone | + [...] [address] | | | | | [place], [place] | [place], [place] | | | | | [address] | [address] | | | | | [phone] | [phone] | | | | | | | [...] | | | [facility] | | | | | | [address] | | | | | | | [...]
--- OUTSIDE RECORDS SUMMARY | ~2020-05-08 | XMS | Encounter Summary ---
Demographics + + + | Address | [address] | | | [place] [address] | + + + | Home Phone [...] Team Providers + +------+ + | Care Rail Car Mechanic Name | Role | Phone | [...] [address] | | | | | [place], [place] | [place], [place] | | | | | [address] | [address] | | | | | [phone] | [phone] | | | | | | | [...] | | | | [address] [facility] | | | | | | [address] | | | | | | | [...]
--- OUTSIDE RECORDS SUMMARY | ~2020-05-08 | XMS | Encounter Summary ---
Demographics + + + | Address | [address] | | | [place] [address] | + + + | Home Phone [...] [place] | | | | | [address] | | + + + + + Care Team Providers + +------+ + | Care Horticultural Specialty Grower Field Name | Role | Phone | + [...] [place] | | | | | | [address] | | | | | | [place], [place] | | | | | | [address] | | | | | | [phone] | | | +--------+ + + + [...] as of this encounter Progress Notes Interface, Railroad Police Officer In - 12/28/2006 5:10 AM PST [address] [address] or January 31, 1998 GRIFFIN SMILEY MD [address] [place] [address] RE:PORFIRIO ZAVALA MR#:[id number] Smiley: As [...] in the future. Sincerely, Nelson Melara M.D. Rd Manager, Anesthesiology [facility] Pain Management Center MANDY/geovanni documented in this encounter Plan of Treatment Not on filedocumented as of this encounter Visit Diagnoses Not on filedocumented in this encounter"
--- OUTSIDE RECORDS SUMMARY | ~2020-05-08 | XMS | Encounter Summary ---
Demographics + + + | Address | [address] | | | [place] [address] | + + + | Home Phone [...] [place] | | | | | [address] | | + + + + + Care Team Providers + +------+ + | Care Evening Or Night Nurse Supervisor Name | Role | Phone | [...] Note | | 2000 | Visit-Trans | [address] [facility] | [phone] | | | | [place] | [address] | | | | | | [place], [place] | | | | | | [address] | | | +--------+ + + + [...] recommend that he see one of our web site specialist for further evaluation, and he did appear interested in doing that. 2. Referral to Dr. Willis in Orthopedics. Yuriy Huang M.D. greenskeeper HOSEAL / [id number] / [id number] / [id number] / [id number] C: 01/23/2001 nw documented in this encounter Plan of Treatment Not on filedocumented as of this encounter Visit Diagnoses Not on filedocumented in this encounter"
--- OUTSIDE RECORDS SUMMARY | ~2020-05-08 | XMS | Encounter Summary ---
Demographics + + + | Address | [address] | | | [place] [address] | + + + | Home Phone [...] Team Providers + +------+ + | Care Carpenter Supervisor Name | Role | Phone | + +------+ + | Rahul Silva MD | PCP | | + +------+ + Encounter Details +--------+ + + + + | Date | Type | Department | Care Team | Description | +--------+ + + + + | 10/10/ | Orders Only | [facility] | Farrukh Acuna MD | | | 2013 | | NEPHROLOGY [place] | [address] [place] | | | | | [address] [place] | [address] [place], [place] | | | | | [address] [place], [place] | [address] | | | | | [address] | | | | | | [phone] | | | +--------+ + + + [...] 2019 | Visit | | [address] [facility] | | | | | | 160 [place] | | | | | | [address] | | | | | | | [...]
--- OUTSIDE RECORDS SUMMARY | ~2020-05-08 | XMS | Encounter Summary ---
Demographics + + + | Address | [address] | | | [place] [address] | + + + | Home Phone [...] Team Providers + +------+ + | Care Sorter Laundry Articles Name | Role | Phone | + [...] | | | [address] | [place] [address] | | | | | [place] [address] | | | | | | [phone] | | | +--------+ + + + [...] [place] | | | | | | [address] | | | | | | | [...]
--- OUTSIDE RECORDS SUMMARY | ~2020-05-08 | XMS | Encounter Summary ---
Demographics + + + | Address | [address] | | | [place] [address] | + + + | Home Phone [...] [place] | | | | | [address] | | + + + + + Care Team Providers + +------+ + | Care Picture Hanger Name | Role | Phone | + +------+ + PCP | Unavailable | + +------+ + Encounter Details +--------+ + + + + | Date | Type | Department | Care Team | Description | +--------+ + + + + | 04/06/ | Procedure - | [facility] | Record, Operation | Operative Report | | 1997 | | [place] [facility] [address] | | | | | Transcribed | [address] | | | | | | Mailcode: [place] | | | | | | [facility] | | | | | | Healing, Building [address] | | | | | | [facility] [place] | | | | | | [address] | | | | | | [phone] | | | +--------+ + + + [...] + + | 04/06/1998 12:00 AM PDT [place] | | [facility] | | [address], [place] [address] | | [facility] | | | | OPERATION RECORD | | | | Med Rec No.: [id number] Date: 04/06/98 | | | | Name: Con Kavon Morris | | | | | | ATTENDING SURGEON: | | Galo Arora M.D. | | [facility], | | Division of Plastic & | | Reconstructive Surgery | | HOME HEALTH TRAVEL OT(S): | | Barry Fofana M.D. | | [...] | | Galo Arora M.D. | | [facility], | | Division of Plastic & | | Reconstructive Surgery | | WOJCIECH/pita | | | | P | | C: 05/12/98 lv | | cc: | | | + + documented in this encounter Visit Diagnoses Not on filedocumented in this encounter"
--- OUTSIDE RECORDS SUMMARY | ~2020-05-08 | XMS | Encounter Summary ---
Demographics + + + | Address | [address] | | | [place] [address] | + + + | Home Phone [...] Providers + +------+ + | Care Manager Rehab Name | Role | Phone | + +------+ + | Rahul Silva MD | PCP | | + +------+ + Encounter Details +--------+ + + + + | Date | Type | Department | Care Team | Description | +--------+ + + + + | 07/20/ | Orders Only | [facility] | Farrukh Acuna MD | Anemia of chronic | | 2019 | | NEPHROLOGY [place] | [address] [place] | renal failure, stage | | | | [address] [place] | [address] [place], [place] | 4 (severe) (HCC) | | | | [address] [place], [place] | [address] | (Primary Dx); Stage | | | | [address] | | 4 chronic kidney | | | | [phone] | | disease (HCC); | | | [...] HOSPITAL[facility] | | | | | | [address] | | | | | | | [...]
--- OUTSIDE RECORDS SUMMARY | ~2020-05-08 | XMS | Encounter Summary ---
Demographics + + + | Address | [address] | | | [place] [address] | + + + | Home Phone [...] [place] | | | | | [address] | | + + + + + Care Team Providers + +------+ + | Care Condemnation Engineer Name | Role | Phone | [...] [address] | | | | | | [place], [place] | | | | | | [address] | | | | | | [phone] | | | +--------+ + + + [...] as of this encounter Progress Notes Interface, Electrolytic Etcher In - 01/06/2007 5:03 AM PST CLINIC DATE: 10/31/97 [facility] - PROCEDURE NOTE [...] his left thigh stump. Nelson Melara M.D. Needle Punch Machine Operator Helper, Anesthesiology [facility] MANDY/maryjo documented in this encounter Plan of Treatment Not on filedocumented as of this encounter Visit Diagnoses Not on filedocumented in this encounter"
--- OUTSIDE RECORDS SUMMARY | ~2020-05-08 | XMS | Encounter Summary ---
Demographics + + + | Address | [address] | | | [place] [address] | + + + | Home Phone [...] Team Providers + +------+ + | Care Fretted String Instrument Repairer Name | Role | Phone | [...] + + | 08/25/ | Telephone | [facility] | Brian Orosco MD | New Patient (08/26 | | 2019 | | VASCULAR SURGERY | [address] | appointment) | | | | [address] [place] | [place], [place] | | | | | [place], [place] | [address] | | | | | [address] | [phone] | | | | | [phone] | | | +--------+ + + + [...] [place] | | | | | | [address] | | | | | | | | +--------+---------+ + + + documented as of this encounter Visit Diagnoses Not on filedocumented in this encounter"
--- OUTSIDE RECORDS SUMMARY | ~2020-05-08 | XMS | Encounter Summary ---
Demographics + + + | Address | [address] | | | [place] [address] | + + + | Home Phone [...] Providers + +------+ + | Care Sales Management Intern Name | Role | Phone | [...] | | | stage 5, GFR | [address] | | | | | | less than | Phone: | | | | | | 15 ml/min | [phone] | | | | | | ([facility]) | Fax: | | | | | | Procedures | [phone] | | | | | | VAS [...] + + | 10/20/ | Hospital | [facility] | Trisha Conner DNP | CKD (chronic kidney | | 2018 | Encounter | VASCULAR SURGERY | [address] | disease) stage 5, | | | | ULTRASOUND [address] | [address] [place] | GFR less than 15 | | | | [address] [place] | [address] | ml/min (HCC) | | | | [place], [place] | | | | | | [address] | | | | | | [phone] | | | +--------+ + + + [...] 2 puffs by | | 0 | 04/03/20 | | | (90 Base) MCG/ACT | [...] Visit | | [address] [facility] | | | | | | [address] [place], [place] | | | | | | [address] | | | | | | | [...] GFR less than 15 ml/min ([facility]) Chronic kidney | | disease, Stage V | + + documented in this encounter"
--- OUTSIDE RECORDS SUMMARY | ~2020-05-08 | XMS | Encounter Summary ---
Demographics + + + | Address | [address] | | | [place] [address] | + + + | Home Phone [...] Team Providers + +------+ + | Care Slurry Man Name | Role | Phone | [...] + + | 12/07/ | Telephone | [facility] | Farrukh Acuna MD | Other (Blood | | 2019 | | NEPHROLOGY [place] | [address] [place] | pressure concern. ) | | | | [address] [place] | [address] [place], [place] | | | | | [address] [place], [place] | [address] | | | | | [address] | | | | | | [phone] | | | +--------+ + + + [...] 06/05/ | Office | Nephrology | Farrukh Acuan MD | | | 2019 | Visit | | [address] [facility] | | | | | | [address] [place] | | | | | | [address] | | | | | | | | +--------+---------+ + + + documented as of this encounter Visit Diagnoses Not on filedocumented in this encounter"
--- OUTSIDE RECORDS SUMMARY | ~2020-05-08 | XMS | Encounter Summary ---
Demographics + + + | Address | [address] | | | [place] [address] | + + + | Home Phone [...] Team Providers + +------+ + | Care Utility Worker [place] Name | Role | Phone | + [...] | | | stage 5, GFR | [address] | | | | | | less than | Phone: | | | | | | 15 ml/min | [phone] | | | | | | ([facility]) | Fax: | | | | | | Procedures | [phone] | | | | | | VAS [...] + + | 10/20/ | Hospital | [facility] | Trisha Conner DNP | CKD (chronic kidney | | 2018 | Encounter | VASCULAR SURGERY | [address] | disease) stage 5, | | | | ULTRASOUND [address] | [address] | GFR less than 15 | | | | [place] | [address] | ml/min (HCC) | | | | [place], [place] | | | | | | [address] | | | | | | [phone] | | | +--------+ + + + [...] | | | | | | | ([facility]), Secondary | | | | | | | hyperparathyroidism | | | | | | | ([facility]) | | | | | | + [...] | | | | | | [address] [place], [place] | | | | | | [address] | | | | | | | [...] less than 15 ml/min ([facility]) Chronic kidney | | disease, Stage V | + + documented in this encounter"
--- OUTSIDE RECORDS SUMMARY | ~2020-05-08 | XMS | Encounter Summary ---
Demographics + + + | Address | [address] | | | [place] [address] | + + + | Home Phone [...] [place] | | | | | [address] | | + + + + + Care Team Providers + +------+ + | Care Pump Operator Name | Role | Phone | [...] [address] | | | | | | [place], [place] | | | | | | [address] | | | | | | [phone] | | | +--------+ + + + [...] as of this encounter Progress Notes Interface, Web Page Designer In - 01/22/2007 3:04 AM PST CLINIC DATE: 06/07/97 NEUROLOGY CLINIC HISTORY OF PRESENT ILLNESS: Mr. Andujar is a 56 year-old male who is being evaluated in the Clinic for problems with balance and tremulousness of both upper extremities. He has been referred to this Clinic by Dr. Valles from [place], [place], and has also previously undergone extensive evaluations in the Neurosurgical Clinic and at Vascular Surgery at [facility]. His most recent hospitalization to [facility] was December 28, 1996, when he [...] evaluation in the Pain Management Clinic at [facility] and previous trials of Neurontin and mexiletine hydrochloride apparently appears to have been unsuccessful. Shortly following his December hospitalization at [facility], Mr. Andujar apparently became comatose in January from an accidental overdose of Darvon for which he was admitted to [facility] in [place], [place]. The details pertaining to this hospitalization are currently not available but as per Mr. Andujar, he was in a coma for a six day period and upon recovery noted tremulousness of both upper extremities, worse on his left than on his right. Prior to his hospitalization at [facility] and following his discharge from [facility], he apparently was ambulating with crutches since the stump pain precluded the use of his left lower extremity prosthesis. Since his discharge from [facility], however, he has been experiencing increasing problems with balance and apparently has fallen on several occasions. The head CT-scan that was done at [facility], dated February 07, 1997, reveals a low attenuation area in the left anterior basal ganglia felt to represent a small lacunar infarct, with no other significant abnormality. Mr. Andujar states that during the course of his hospitalization at [facility] he apparently fell on three occasions sustaining occipital head trauma but did not undergo subsequent brain imaging studies. His stay at [facility] lasted two weeks. By his report, he [...] Mr. 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 He currently smokes one-half spjl-jdv-zpi since age 23. Denies current alcohol use [...] led to his hospitalization at [facility] in January 1997 for coma at which [...] of which were surgically removed. PLAN: Mr. Anduajr's neurologic exam today is suggestive of benign [...] procedures for pain relief. Michelle Landon M.D. Sociology Adjunct Instructor, Neurology GN:fermin C: 06/28/97 cc: RUBIA VALLES MD [address] [facility] [address] Alina Moise M.D. Professor and Home School Liaison Officer, Division of Neurosurgery Robert Carlson M.D. Professor, Vascular Surgery documented in this encounter Plan of Treatment Not on filedocumented as of this encounter Visit Diagnoses Not on filedocumented in this encounter"
--- OUTSIDE RECORDS SUMMARY | ~2020-05-08 | XMS | Encounter Summary ---
Demographics + + + | Address | [address] | | | [place] [address] | + + + | Home Phone [...] Team Providers + +------+ + | Care Import/Export Clerk Name | Role | Phone | [...] | Transaction, | | | | | [place], [place] | Provider Unknown | | | | | [address] | | | | | | [phone] | | | +--------+ + + + [...] Visit | | [address] [facility] | | | | | | [address] [place] | | | | | | [address] | | | | | | | [...]
--- OUTSIDE RECORDS SUMMARY | ~2020-05-08 | XMS | Encounter Summary ---
Demographics + + + | Address | [address] | | | [place] [address] | + + + | Home Phone [...] Providers + +------+ + | Care Machine Cutter Name | Role | Phone | + +------+ + | Rahul Silva MD | PCP | | + +------+ + Encounter Details +--------+ + + + + | Date | Type | Department | Care Team | Description | +--------+ + + + + | 07/20/ | Orders Only | [facility] | Farrukh Acuna MD | Stage 4 chronic | | 2019 | | NEPHROLOGY [place] | [address] [place] | kidney disease (HCC) | | | | [address] | [address] [place], [place] | (Primary Dx); | | | | [address] | [address] | Persistent | | | | [place], [place] | | proteinuria; | | | | [address] | | Secondary | | | | [phone] | | hyperparathyroidism | | | | [...] | | | | | | [address] [place] | | | | | | [address] | | | | | | | [...]
--- OUTSIDE RECORDS SUMMARY | ~2020-05-08 | XMS | Encounter Summary ---
Demographics + + + | Address | [address] | | | [place] [address] | + + + | Home Phone [...] Providers + +------+ + | Care Motor Bus Driver Name | Role | Phone [...] Unknown | | | | | [address] [place], [place] | [phone] | | | | | [address] | (Fax) | | | | | [phone] | | | +--------+ + + + [...] | | | [address] [facility] | | | | | | [address] | | | | | | | [...]
--- OUTSIDE RECORDS SUMMARY | ~2020-05-08 | XMS | Encounter Summary ---
Demographics + + + | Address | [address] | | | [place] [address] | + + + | Home Phone [...] Providers + +------+ + | Care Office Coordinator Receptionist Name | Role | Phone | [...] [address] | | | | | [place], [place] | [place], [place] | | | | | [address] | [address] | | | | | [phone] | [phone] | | | | | | | [...] HOSPITAL[facility] | | | | | | [address] | | | | | | | [...]
--- OUTSIDE RECORDS SUMMARY | ~2020-05-08 | XMS | Encounter Summary ---
Demographics + + + | Address | [address] | | | [place] [address] | + + + | Home Phone [...] Team Providers + +------+ + | Care Chocolatier Name | Role | Phone | + +------+ + | Rahul Silva MD | PCP | | + +------+ + Encounter Details +--------+ + + + + | Date | Type | Department | Care Team | Description | +--------+ + + + + | 09/18/ | Orders Only | [facility] | Conversion | | | 2018 | | NEPHROLOGY [place] | Transaction, | | | | | [address] | Provider Unknown | | | | | [address] [place] | | | | | | [address] | (Fax) | | | | | [phone] | | | +--------+ + + + [...] HOSPITAL[facility] | | | | | | [address] | | | | | | | [...]
--- OUTSIDE RECORDS SUMMARY | ~2020-05-08 | XMS | Encounter Summary ---
Demographics + + + | Address | [address] | | | [place] [address] | + + + | Home Phone [...] [place] | | | | | [address] | | + + + + + Care Team Providers + +------+ + | Care Technical Operations Manager Name | Role | Phone [...] | | [address] | [place], | | | | | [place] | [place] [address] | | | | | [place] | [phone] | | | | | [address] | | | | | | [phone] | | | +--------+ + + + [...] | | | | | | a Chelmsford-Lupe catheter | | | | | | [...] | | | | placement of a Chelmsford-Lupe | | | | | | catheter. CHEST, | | | | | | SINGLE AP PORTABLE: | | | | | | 03-31-93 AT 1000 HOURS | | | | | | FINDINGS: Since the | | | | | | prior study, the | | | | | | Chelmsford-Lupe catheter has | | | | | [...] IMPRESSION: | | | | | | Chelmsford-Lupe catheter | | | | | | [...] The | | | | | | Chelmsford-Lupe catheter | | | | | | [...] and | | | | | | Chelmsford-Lupe catheter | | | | | | [...] endotracheal | | | | | | tube,Chelmsford-Lupe catheter | | | | | | [...] + + + + | [facility] | [address] | [place] [address] | | | PATHOLOGY | [address] | | | + + + + + documented in this encounter Visit Diagnoses Not on filedocumented in this encounter"
--- OUTSIDE RECORDS SUMMARY | ~2020-05-08 | XMS | Encounter Summary ---
Demographics + + + | Address | [address] | | | [place] [address] | + + + | Home Phone [...] Team Providers + +------+ + | Care Sorting Grapple Operator Name | Role | Phone | [...] | | | [address] | [place] [address] | | | | | [place] [address] | | | | | | [phone] | | | +--------+ + + + [...] | | | | | | [address] [place] | | | | | | [address] | | | | | | | [...]
--- OUTSIDE RECORDS SUMMARY | ~2020-05-08 | XMS | Encounter Summary ---
Demographics + + + | Address | [address] | | | [place] [address] | + + + | Home Phone [...] Providers + +------+ + | Care Research Electrician Name | Role | Phone | [...] + + | 12/30/ | Telephone | [facility] | Farrukh Acuna MD | Other (Medication | | 2019 | | NEPHROLOGY [place] | [address] [place] | question.) | | | | [address] [place] | [address] [facility] [place] | | | | | [address] [facility], [place] | [address] | | | | | [address] | | | | | | [phone] | | | +--------+ + + + [...] [place] | | | | | | [address] | | | | | | | | +--------+---------+ + + + documented as of this encounter Visit Diagnoses Not on filedocumented in this encounter"
--- OUTSIDE RECORDS SUMMARY | ~2020-05-08 | XMS | Encounter Summary ---
Demographics + + + | Address | [address] | | | [place] [address] | + + + | Home Phone [...] Team Providers + +------+ + | Care Whipped Topping Mixer Name | Role | Phone | + +------+ + | Rahul Silva MD | PCP | | + +------+ + Encounter Details +--------+ + + + + | Date | Type | Department | Care Team | Description | +--------+ + + + + | 05/27/ | Orders Only | [facility] | Farrukh Acuna MD | | | 2017 | | NEPHROLOGY [place] | [address] [place] | | | | | [address] [place] | [address] [place], [place] | | | | | [address] [place], [place] | [address] | | | | | [address] | | | | | | [phone] | | | +--------+ + + + [...] [place] | | | | | | [address] | | | | | | | [...] + + + | Red Blood | 3.55 (A) | 4.3 - 5.7 [...] | | | LAB | | | SOMALI | | | | | + + [...]
--- OUTSIDE RECORDS SUMMARY | ~2020-05-08 | XMS | Encounter Summary ---
Demographics + + + | Address | [address] | | | [place] [address] | + + + | Home Phone [...] Providers + +------+ + | Care Sales Specialist Name | Role | Phone | [...] + + | 07/21/ | Documentati | [facility] | Simon, | Results (07/19/19) | | 2019 | on | NEPHROLOGY [place] | [facility] | | | | | [address] | Cut In Station Operator | | | | | [address] [place], [place] | | | | | | [address] | | | | | | [phone] | | | +--------+ + + + [...] | Visit | | [address] [facility] | | | | | | [address] [place], [place] | | | | | | [address] | | | | | | | [...]
--- OUTSIDE RECORDS SUMMARY | ~2020-05-08 | XMS | Encounter Summary ---
Demographics + + + | Address | [address] | | | [place] [address] | + + + | Home Phone [...] Team Providers + +------+ + | Care Blast Furnace Helper Name | Role | Phone | + +------+ + | Rahul Silva MD | PCP | | + +------+ + Encounter Details +--------+ + + + + | Date | Type | Department | Care Team | Description | +--------+ + + + + | 08/19/ | Orders Only | [facility] | Farrukh Acuna MD | | | 2018 | | NEPHROLOGY [place] | [address] [place] | | | | | [address] [place] | [address] [place], [place] | | | | | [address] [place], [place] | [address] | | | | | [address] | | | | | | [phone] | | | +--------+ + + + [...] [place] | | | | | | [address] | | | | | | | [...]
--- OUTSIDE RECORDS SUMMARY | ~2020-05-08 | XMS | Encounter Summary ---
Demographics + + + | Address | [address] | | | [place] [address] | + + + | Home Phone [...] Providers + +------+ + | Care Title I Math Tutor Name | Role | Phone | [...] | | | | [place], [place] | [place], [place] | | | | | [address] | [address] | | | | | [phone] | [phone] | | | | | | | [...] 2020 | Visit | | [address] [facility] | | | | | | [facility] | | | | | | [address] | | | | | | | [...]
--- OUTSIDE RECORDS SUMMARY | ~2020-05-08 | XMS | Encounter Summary ---
Demographics + + + | Address | [address] | | | [place] [address] | + + + | Home Phone [...] Team Providers + +------+ + | Care Seafood Preparer Name | Role | Phone | [...] | | | [address] | [place] [address] | | | | | [place] [address] | | | | | | [phone] | | | +--------+ + + + [...] [place] | | | | | | [address] | | | | | | | [...]
--- OUTSIDE RECORDS SUMMARY | ~2020-05-08 | XMS | Encounter Summary ---
Demographics + + + | Address | [address] | | | [place] [address] | + + + | Home Phone [...] Providers + +------+ + | Care Customer Solutions Coordinator Name | Role | Phone | [...] + + | 07/30/ | Telephone | [facility] | Brian Orosco MD | Establish Care | | 2019 | | VASCULAR SURGERY | [address] | (Referral) | | | | [address] [place] | [place], [place] | | | | | [place], [place] | [address] | | | | | [address] | [phone] | | | | | [phone] | | | +--------+ + + + [...] [place] | | | | | | [address] | | | | | | (Fax) | | +--------+---------+ + + + documented as of this encounter Visit Diagnoses Not on filedocumented in this encounter"
--- OUTSIDE RECORDS SUMMARY | ~2020-05-08 | XMS | Encounter Summary ---
Demographics + + + | Address | [address] | | | [place] [address] | + + + | Home Phone [...] Team Providers + +------+ + | Care Bake Room Worker Name | Role | Phone | + +------+ + | Rahul Silva MD | PCP | | + +------+ + Encounter Details +--------+ + + + + | Date | Type | Department | Care Team | Description | +--------+ + + + + | 08/19/ | Orders Only | [facility] | Conversion | | | 2017 | | NEPHROLOGY [place] | Transaction, | | | | | [address] | Provider Unknown | | | | | [address] [place] | | | | | | [address] | (Fax) | | | | | [phone] | | | +--------+ + + + [...] | | | | | [address] [facility] | | | | | | [address] | | | | | | | [...] | | | LAB | | | MAURITIAN | | | | | + + [...]
--- OUTSIDE RECORDS SUMMARY | ~2020-05-08 | XMS | Encounter Summary ---
Demographics + + + | Address | [address] | | | [place] [address] | + + + | Home Phone [...] Providers + +------+ + | Care General Practitioner Name | Role | Phone | + +------+ + | Rahul Silva MD | PCP | | + +------+ + Encounter Details +--------+ + + + + | Date | Type | Department | Care Team | Description | +--------+ + + + + | 10/05/ | Orders Only | [facility] | Farrukh Acuna MD | Essential | | 2019 | | NEPHROLOGY [place] | [address] [place] | hypertension | | | | [address] | [address] [facility] [place] | (Primary Dx); Iron | | | | [address] | [address] | deficiency; | | | | [place], [place] | | Secondary | | | | [address] | | hyperparathyroidism | | | | [phone] | | (HCC); CKD (chronic | | [...] | | | | | [address] [facility] | | | | | | [address] | | | | | | | [...]
--- OUTSIDE RECORDS SUMMARY | ~2020-05-08 | XMS | Encounter Summary ---
Demographics + + + | Address | [address] | | | [place] [address] | + + + | Home Phone [...] Team Providers + +------+ + | Care Custom Applicator Name | Role | Phone | + +------+ + | aRhul Silva MD | PCP | | + +------+ + Encounter Details +--------+ + + + + | Date | Type | Department | Care Team | Description | +--------+ + + + + | 02/12/ | Orders Only | [facility] | Conversion | | | 2018 | | NEPHROLOGY [place] | Transaction, | | | | | [address] | Provider Unknown | | | | | [address] [place] | | | | | | [address] | (Fax) | | | | | [phone] | | | +--------+ + + + [...] HOSPITAL[facility] | | | | | | [address] | | | | | | | [...]
--- OUTSIDE RECORDS SUMMARY | ~2020-05-08 | XMS | Encounter Summary ---
Demographics + + + | Address | [address] | | | [place] [address] | + + + | Home Phone [...] Providers + +------+ + | Care Assistant Golf Course Superintendent Name | Role | Phone | [...] + + | 08/18/ | Refill | [facility] | Sandy Capellan | Medication Refill | | 2019 | | NEPRHOLOGY PAIGE Valadez RN | | | | | [address] | | | | | | [address] [place], [place] | | | | | | [address] | | | | | | [phone] | | | +--------+--------+ + + + [...] [place] | | | | | | [address] | | | | | | | [...]
--- OUTSIDE RECORDS SUMMARY | ~2020-05-08 | XMS | Encounter Summary ---
Demographics + + + | Address | [address] | | | [place] [address] | + + + | Home Phone [...] Team Providers + +------+ + | Care Crepe Sole Wire Brusher Name | Role | Phone [...] [address] | | | | | [place], [place] | [place], [place] | | | | | [address] | [address] | | | | | [phone] | [phone] | | | | | | | [...] [place] | | | | | | [address] | | | | | | | [...] | Red Blood | 3.06 (L) | 4.20 - 5.70 [...]
--- OUTSIDE RECORDS SUMMARY | ~2020-05-08 | XMS | Encounter Summary ---
Demographics + + + | Address | [address] | | | [place] [address] | + + + | Home Phone [...] Team Providers + +------+ + | Care Spinning Supervisor Name | Role | Phone | + +------+ + PCP | Unavailable | + +------+ + Encounter Details +--------+ + + + + | Date | Type | Department | Care Team | Description | +--------+ + + + + | 08/02/ | [facility] | [facility] | Nelson Lutz MD | | | 1991 | Encounter | MED CTR GENERIC OP | [address], [place] | | | | | CONV DEPT [address] | [address] [place] | | | | | [address] [place], | [address] | | | | | [place] [address] | | | | | | [phone] | | | +--------+ + + + [...] | | | | | | [address] [place] | | | | | | [address] | | | | | | | | +--------+---------+ + + + documented as of this encounter Visit Diagnoses Not on filedocumented in this encounter"
--- OUTSIDE RECORDS SUMMARY | ~2020-05-08 | XMS | Encounter Summary ---
Demographics + + + | Address | [address] | | | [place] [address] | + + + | Home Phone [...] Team Providers + +------+ + | Care Cake Washer Name | Role | Phone | [...] + + | 09/13/ | Telephone | [facility] | Terri Aguilar, | Follow-up | | 2018 | | VASCULAR SURGERY | Crop Quantitative Geneticist | | | | | [address] | | | | | | [address] [facility] [place] | | | | | | [address] | | | | | | [phone] | | | +--------+ + + + [...] | | | | | | [address] [place] | | | | | | [address] | | | | | | | | +--------+---------+ + + + documented as of this encounter Visit Diagnoses Not on filedocumented in this encounter"
--- OUTSIDE RECORDS SUMMARY | ~2020-05-08 | XMS | Encounter Summary ---
Demographics + + + | Address | [address] | | | [place] [address] | + + + | Home Phone [...] [place] | | | | | [address] | | + + + + + Care Team Providers + +------+ + | Care Rn Urgent Care Name | Role | Phone | + +------+ + PCP | Unavailable | + +------+ + Encounter Details +--------+ + + + + | Date | Type | Department | Care Team | Description | +--------+ + + + + | 12/28/ | Procedure - | [facility] | Record, Operation | Operative Report | | 1996 | | [place] [facility] [address] | | | | | Transcribed | [address] | | | | | | Mailcode: [place] | | | | | | [facility] | | | | | | Healing, [address] | | | | | | [facility] [place] | | | | | | [address] | | | | | | [phone] | | | +--------+ + + + [...] | + + | 12/28/[address] 12:[address] [facility] | | [facility] | | [address] [place], [place] [address] | | [facility] | | | | OPERATION RECORD | | | | Med Rec No.: [id number] Date: 12/28/96 | | | | Name: Mehran Andujarald Arturo | | | | | | ATTENDING SURGEON: Robert Carlson M.D. | | Professor, | | Vascular Surgery | | | | BOILER CONTROL ROOM OPERATOR(S): Nick Noriega M.D. | | Drilling Machine Operator, General Surgery | | | | POSTOPERATIVE DIAGNOSIS(ES): Left stump osteophyte. | | | | OPERATION(S) PERFORMED: Revision of left evlqz-hfs-dkiw amputation | | and excision of stump osteophyte. | | | | SPECIMEN(S) REMOVED: 1. Swab of pseudocapsule for culture. | | 2. Osteophyte to Pathology. | | | | ANESTHESIA: General endotracheal anesthesia. 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 He has developed pain over the stump. A recent CT scan showed | | an osteophyte growing on the end of the stump. | | | | PROCEDURE: The patient was taken to the Operating Room. | | General endotracheal anesthesia was | | performed by Anesthesia. The | | left fmqgg-ody-doiy amputation stump was sterilely prepped and draped [...] | | Nick Noriega M.D. | | Drilling Machine Operator, General Surgery | | Robert Carlson M.D. | | Professor, | | Vascular Surgery | | | | DOMINIC/jc | | | | A | | | | cc: | | | + + documented in this encounter Visit Diagnoses Not on filedocumented in this encounter"
--- OUTSIDE RECORDS SUMMARY | ~2020-05-08 | XMS | Encounter Summary ---
Demographics + + + | Address | [address] | | | [place] [address] | + + + | Home Phone [...] [place] | | | | | [address] | | + + + + + Care Team Providers + +------+ + | Care Franchise Specialist Name | Role | Phone | + +------+ + PCP | Unavailable | + +------+ + Encounter Details +--------+ + + + + | Date | Type | Department | Care Team | Description | +--------+ + + + + | 03/30/ | Results | | Other, Faculty | | | 1992 | Only | | [phone] | | +--------+ + + + + [...] | | | | | | | [id number] AND | | | | | | [...] | | | | | | | [id number] | | | | | | CHEST: [...] | | | | | | | [id number] | | | | | | CHEST: [...] | | | | | | | [id number], | | | | | | PORTABLE, [...] | | | | | | | [id number], | | | | | | PORTABLE, [...] and | | | | | | [facility] Matthews Ganzcatheter are | | | | | [...] | | | | | | a [place] Matthews-Lupe catheter | | | | | | [...] | | | | placement of a [place] Matthews-Lupe | | | | | | catheter. CHEST, | | | | | | SINGLE AP PORTABLE: | | | | | | 03-31-93 AT 1000 HOURS | | | | | | FINDINGS: Since the | | | | | | prior study, the | | | | | | [place] Matthews-Lupe catheter has | | | | | [...] IMPRESSION: | | | | | | [place] Matthews-Lupe catheter | | | | | | [...] The | | | | | | [place] Matthews-Lupe catheter | | | | | | [...] and | | | | | | [place] Matthews-Lupe catheter | | | | | | [...] endotracheal | | | | | | tube,[facility] Matthews-Lupe catheter | | | | | | [...] | | | | | | a [place] Matthews-Lupe catheter | | | | | | [...] | | | | placement of a [place] Matthews-Lupe | | | | | | catheter. CHEST, | | | | | | SINGLE AP PORTABLE: | | | | | | 03-31-93 AT 1000 HOURS | | | | | | FINDINGS: Since the | | | | | | prior study, the | | | | | | [place] Matthews-Lupe catheter has | | | | | [...] IMPRESSION: | | | | | | [place] Matthews-Lupe catheter | | | | | | [...] The | | | | | | [place] Matthews-Lupe catheter | | | | | | [...] and | | | | | | [place] Matthews-Lupe catheter | | | | | | [...] endotracheal | | | | | | tube,[facility] Matthews-Lupe catheter | | | | | | [...] | | | | | | a [place] Matthews-Lupe catheter | | | | | | [...] | | | | placement of a [place] Matthews-Lupe | | | | | | catheter. CHEST, | | | | | | SINGLE AP PORTABLE: | | | | | | 03-31-93 AT 1000 HOURS | | | | | | FINDINGS: Since the | | | | | | prior study, the | | | | | | [place] Matthews-Lupe catheter has | | | | | [...] IMPRESSION: | | | | | | [place] Matthews-Lupe catheter | | | | | | [...] The | | | | | | [place] Matthews-Lupe catheter | | | | | | [...] and | | | | | | [place] Matthews-Lupe catheter | | | | | | [...] endotracheal | | | | | | tube,Saint Matthews-Ulpe catheter | | | | | | [...] | | | | | | a [place] Matthews-Lupe catheter | | | | | | [...] | | | | placement of a [place] Matthews-Lupe | | | | | | catheter. CHEST, | | | | | | SINGLE AP PORTABLE: | | | | | | 03-31-93 AT 1000 HOURS | | | | | | FINDINGS: Since the | | | | | | prior study, the | | | | | | [place] Matthews-Lupe catheter has | | | | | [...] IMPRESSION: | | | | | | [place] Matthews-Lupe catheter | | | | | | [...] The | | | | | | [facility] Matthews-Lupe catheter | | | | | | [...] and | | | | | | [place] Matthews-Lupe catheter | | | | | | [...] endotracheal | | | | | | tube,[facility] Matthews-Lupe catheter | | | | | | [...] | | | | | | a [place] Matthews-Lupe catheter | | | | | | [...] | | | | placement of a [place] Matthews-Lupe | | | | | | catheter. CHEST, | | | | | | SINGLE AP PORTABLE: | | | | | | 03-31-93 AT 1000 HOURS | | | | | | FINDINGS: Since the | | | | | | prior study, the | | | | | | [place] Matthews-Lupe catheter has | | | | | [...] IMPRESSION: | | | | | | [place] Matthews-Lupe catheter | | | | | | [...] The | | | | | | [place] Matthews-Lupe catheter | | | | | | [...] and | | | | | | [place] Matthews-Lupe catheter | | | | | | [...] endotracheal | | | | | | tube,[facility] Matthews-Lupe catheter | | | | | | [...] | | | | | [facility] | | | | | | Bilateral [...] | | | | | | a [place] Matthews-Lupe catheter | | | | | | [...] | | | | placement of a [employer] Matthews-Lupe | | | | | | catheter. CHEST, | | | | | | SINGLE AP PORTABLE: | | | | | | 03-31-93 AT 1000 HOURS | | | | | | FINDINGS: Since the | | | | | | prior study, the | | | | | | [place] Matthews-Lupe catheter has | | | | | [...] IMPRESSION: | | | | | | [place] Matthews-Lupe catheter | | | | | | [...] The | | | | | | [place] Matthews-Lupe catheter | | | | | | [...] and | | | | | | [place] Matthews-Lupe catheter | | | | | | [...] endotracheal | | | | | | tube,[facility] Matthews-Lupe catheter | | | | | | [...] | | | | | | a [place] Matthews-Lupe catheter | | | | | | [...] | | | | placement of a [place] Matthews-Lupe | | | | | | catheter. CHEST, | | | | | | SINGLE AP PORTABLE: | | | | | | 03-31-93 AT 1000 HOURS | | | | | | FINDINGS: Since the | | | | | | prior study, the | | | | | | [place] Matthews-Lupe catheter has | | | | | [...] IMPRESSION: | | | | | | [facility] Matthews-Lupe catheter | | | | | | [...] The | | | | | | [facility] Matthews-Lupe catheter | | | | | | [...] and | | | | | | [place] Matthews-Lupe catheter | | | | | | [...] endotracheal | | | | | | tube,Saint Matthews-Lpue catheter | | | | | | [...]
--- OUTSIDE RECORDS SUMMARY | ~2020-05-08 | XMS | Encounter Summary ---
Demographics + + + | Address | [address] | | | [place] [address] | + + + | Home Phone [...] [place] | | | | | [address] | | + + + + + Care Team Providers + +------+ + | Care Wound Nurse Name | Role | Phone | [...] Vyas | | | | | | [address] | | | | | | [place], [place] | | | | | | [address] | | | | | | [phone] | | | +--------+ + + + [...] as of this encounter Progress Notes Interface, Dog Control Officer In - 01/22/2007 3:04 AM PST [address] [address] or June 07, 1997 Pravin VALLES MD [address] [facility] [address] RE:Kavon Andujar MR#:[id number] Valles: I saw Kavon Andujar in the Neurology Clinic today and have enclosed a copy of my note. 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 He also [...] over the telephone. Sincerely, Michelle Landon M.D. Imaging Specialist, Neurology JINNY/ C: 06/13/97 cc: Alina Moise M.D. Division of Neurosurgery [facility] Robert Carlson M.D. Division of Vascular Surgery [facility] documented in this encounter Plan of Treatment Not on filedocumented as of this encounter Visit Diagnoses Not on filedocumented in this encounter
--- OUTSIDE RECORDS SUMMARY | ~2020-05-08 | XMS | Encounter Summary ---
Demographics + + + | Address | [address] | | | [place] [address] | + + + | Home Phone [...] Team Providers + +------+ + | Care Paramedic Name | Role | Phone | + +------+ + | Rahul Silva MD | PCP | | + +------+ + Encounter Details +--------+ + + + + | Date | Type | Department | Care Team | Description | +--------+ + + + + | 06/15/ | Orders Only | [facility] | Conversion | | | 2019 | | NEPHROLOGY [place] | Transaction, | | | | | [address] | Provider Unknown | | | | | [address] [place] | | | | | | [address] | (Fax) | | | | | [phone] | | | +--------+ + + + [...] 2020 | Visit | | [address] [facility] [place] | | | | | | [address] [place] | | | | | | [address] | | | | | | | [...]
--- OUTSIDE RECORDS SUMMARY | ~2020-05-08 | XMS | Encounter Summary ---
Demographics + + + | Address | [address] | | | [place] [address] | + + + | Home Phone [...] Team Providers + +------+ + | Care Pick Pack Worker Name | Role | Phone | + +------+ + | Rahul Silva MD | PCP | | + +------+ + Encounter Details +--------+ + + + + | Date | Type | Department | Care Team | Description | +--------+ + + + + | 07/27/ | Orders Only | [facility] | Farrukh Acuna MD | Chronic kidney | | 2019 | | NEPHROLOGY [place] | [address] [place] | disease, stage IV | | | | [address] [place] | [address] [place], [place] | (severe) (HCC); | | | | [address] [place], [place] | [address] | Chronic kidney | | | | [address] | | disease, stage IV | | | | [phone] | | (severe) (HCC); | | | [...] [place] | | | | | | [address] | | | | | | | [...]
--- OUTSIDE RECORDS SUMMARY | ~2020-05-08 | XMS | Encounter Summary ---
Demographics + + + | Address | [address] | | | [place] [address] | + + + | Home Phone [...] Providers + +------+ + | Care It Help Desk Technician Name | Role | [...] [address] Young | | | | | [place], [place] | [place], [place] | | | | | [address] | [address] | | | | | [phone] | [phone] | | | | | | | [...] HOSPITAL[facility]HA | | | | | | [address] | | | | | | | [...]
--- OUTSIDE RECORDS SUMMARY | ~2020-05-08 | XMS | Encounter Summary ---
Demographics + + + | Address | [address] | | | [place] [address] | + + + | Home Phone [...] Providers + +------+ + | Care Property And Equipment Clerk Name | Role | Phone | + +------+ + | Rahul Silva MD | PCP | | + +------+ + Encounter Details +--------+ + + + + | Date | Type | Department | Care Team | Description | +--------+ + + + + | 08/13/ | Orders Only | [facility] | Conversion | | | 2016 | | NEPHROLOGY [place] | Transaction, | | | | | [address] | Provider Unknown | | | | | [address] [place] | | | | | | [address] | (Fax) | | | | | [phone] | | | +--------+ + + + [...] | | | | | | [facility] | | | | | | [address] | | | | | | | [...]
--- OUTSIDE RECORDS SUMMARY | ~2020-05-08 | XMS | Encounter Summary ---
Demographics + + + | Address | [address] | | | [place] [address] | + + + | Home Phone [...] Team Providers + +------+ + | Care Biosolids Management Technician Name | Role | Phone | [...] Venkata Carroll | | | 2019 | [facility] | [address] | | | | | OPERATING ROOM [address] | [address] | | | | | [address] | [place] [address] | | | | | [place], [place] | [phone] | | | | | [address] | | | | | | [phone] | | | +--------+ + + + + Anesthesia Record + + + + + | Procedure Name | Responsible | Anesthesia Start | Anesthesia Stop Time | | | Anesthesiologist | Time | | + + + + + | INSERTION AV FISTULA | Venkata Carroll, | 09/10/19 1307 | 09/10/19 1401 | | (Right BBF) (Right | MANAGED SERVICES SALES CONSULTANT | | | | Arm Upper) | [...] 09/10/19 1600 by | | amor | [id number] catheter system; | Trinidad Ramírez | Leana [...] | | | | | [address] [place], [place] | | | | | | [address] | | | | | | | [...]
--- OUTSIDE RECORDS SUMMARY | ~2020-05-08 | XMS | Encounter Summary ---
Demographics + + + | Address | [address] | | | [place] [address] | + + + | Home Phone [...] Providers + +------+ + | Care Production Lapping Machine Operator Name | Role | Phone [...] | | | | disease not | [place], | [place], [place] | | | | | on chronic | [place] [address] | [address] | | | | | dialysis | Phone: | Phone: | | | | | ([facility]) | [phone] | [phone] | | | | | Hypertension | Fax: | Fax: | | | | | , | [phone] | [phone] | | | | | unspecified | | | | | | | type | | | +--------+ + + + + + Encounter Details +--------+ + + + + | Date | Type | Department | Care Team | Description | +--------+ + + + + | 07/28/ | Orders Only | [facility] | Farrukh Acuna MD | Iron deficiency | | 2019 | | NEPHROLOGY [place] | [address] [place] | (Primary Dx); Anemia | | | | [address] [place] | [address] [place], [place] | of chronic kidney | | | | [address] [place], [place] | [address] | failure, stage 5 | | | | [address] | | ([facility]); Stage 5 | | | | [phone] | | chronic kidney | | | [...] [place] | | | | | | [address] | | | | | | (Fax) [...] chronic | Ordered: 07/28/2019 | | to [facility] | Referral | e | kidney [...]
--- OUTSIDE RECORDS SUMMARY | ~2020-05-08 | XMS | Encounter Summary ---
Demographics + + + | Address | [address] | | | [place] [address] | + + + | Home Phone [...] Providers + +------+ + | Care Clinical Education Coordinator Name | Role | Phone | [...] [address] Young | | | | | [place], [place] | [place], [place] | | | | | [address] | [address] | | | | | [phone] | [phone] | | | | | | | [...] SYSTEMRADHA | | | | | | [address] | | | | | | | [...]
--- OUTSIDE RECORDS SUMMARY | ~2020-05-08 | XMS | Encounter Summary ---
Demographics + + + | Address | [address] | | | [place] [address] | + + + | Home Phone [...] Providers + +------+ + | Care Research Psychologist Name | Role | Phone | [...] [place]LL[place]O | | | | | [address] | [place] [address] | | | | | [place] [address] | | | | | | [phone] | | | +--------+ + + + [...] [place] | | | | | | [address] | | | | | | | [...]
--- OUTSIDE RECORDS SUMMARY | ~2020-05-08 | XMS | Encounter Summary ---
Demographics + + + | Address | [address] | | | [place] [address] | + + + | Home Phone [...] Team Providers + +------+ + | Care Autocad Name | Role | Phone | + [...] | | | [address] | [place] [address] | | | | | [place] [address] | | | | | | [phone] | | | +--------+ + + + [...] | | | | | | [address] [place] | | | | | | [address] | | | | | | | [...]
--- OUTSIDE RECORDS SUMMARY | ~2020-05-08 | XMS | Encounter Summary ---
Demographics + + + | Address | [address] | | | [place] [address] | + + + | Home Phone [...] Providers + +------+ + | Care Pole Inspector Name | Role | Phone | + +------+ + | Rahul Silva MD | PCP | | + +------+ + Encounter Details +--------+ + + + + | Date | Type | Department | Care Team | Description | +--------+ + + + + | 08/31/ | Orders Only | [facility] | Farrukh Acuna MD | | | 2013 | | NEPHROLOGY [place] | [address] [place] | | | | | [address] [place] | [address] [place], [place] | | | | | [address] [place], [place] | [address] | | | | | [address] | | | | | | [phone] | | | +--------+ + + + [...] | | | | | | [address] [place] | | | | | | [address] | | | | | | | [...] + + + | Red Blood | 3.20 (A) | 4.3 - 5.7 [...] | | | LAB | | | [facility] | | | | | + + [...]
--- OUTSIDE RECORDS SUMMARY | ~2020-05-08 | XMS | Encounter Summary ---
Demographics + + + | Address | [address] | | | [place] [address] | + + + | Home Phone [...] Providers + +------+ + | Care Electric Bath Attendant Name | Role | Phone | [...] E | | | | | | ([facility]) | [place], [place] | | | | | | Procedures | [address] | | | | | | VAS Arm | Phone: | | | | | | Bilateral | [phone] | | | | | | Mapping For | Fax: | | | | | | Dialysis | [phone] | | +--------+--------+ + + + + Reason for Visit + + + | Reason | Comments | + + + | Referral Consult | | + + + Encounter Details +--------+ + + + + | Date | Type | Department | Care Team | Description | +--------+ + + + + | 07/30/ | Telephone | [facility] | Trisha Conner DNP | Referral Consult | | 2019 | | CARDIOTHORACIC | [address] | | | | | SURGERY [address] | [address] [place], [place] | | | | | [address] | [address] | | | | | [place], [place] | | | | | | [address] | | | | | | [phone] | | | +--------+ + + + [...] | | | | | [address] [place] | | | | | | [address] | | | | | | | [...]
--- OUTSIDE RECORDS SUMMARY | ~2020-05-08 | XMS | Encounter Summary ---
Demographics + + + | Address | [address] | | | [place] [address] | + + + | Home Phone [...] Team Providers + +------+ + | Care Prison Teacher Name | Role | Phone | [...] [address] Young | | | | | [place], [place] | [place], [place] | | | | | [address] | [address] | | | | | [phone] | [phone] | | | | | | | [...] HOSPITAL[facility] | | | | | | [address] | | | | | | | [...]
--- OUTSIDE RECORDS SUMMARY | ~2020-05-08 | XMS | Encounter Summary ---
Demographics + + + | Address | [address] | | | [place] [address] | + + + | Home Phone [...] Team Providers + +------+ + | Care Leasing Coordinator Name | Role | Phone | [...] [address] Young | | | | | [place], [place] | [place], [place] | | | | | [address] | [address] | | | | | [phone] | [phone] | | | | | | | [...] | | | | | | [address] [facility] | | | | | | [address] | | | | | | | [...]
--- OUTSIDE RECORDS SUMMARY | ~2020-05-08 | XMS | Encounter Summary ---
Demographics + + + | Address | [address] | | | [place] [address] | + + + | Home Phone [...] Providers + +------+ + | Care Boiler Cleaner Name | Role | Phone | [...] [address] Young | | | | | [place], [place] | [place], [place] | | | | | [address] | [address] | | | | | [phone] | [phone] | | | | | | | [...] [facility]ENT[facility] | | | | | | [address] | | | | | | | [...]
--- OUTSIDE RECORDS SUMMARY | ~2020-05-08 | XMS | Encounter Summary ---
Demographics + + + | Address | [address] | | | [place] [address] | + + + | Home Phone [...] Team Providers + +------+ + | Care Thickener Operator Name | Role | Phone | + +------+ + | Rahul Silva MD | PCP | | + +------+ + Encounter Details +--------+ + + + + | Date | Type | Department | Care Team | Description | +--------+ + + + + | 12/16/ | Orders Only | [facility] | Conversion | | | 2016 | | NEPHROLOGY [place] | Transaction, | | | | | [address] | Provider Unknown | | | | | [address] [place] | | | | | | [address] | (Fax) | | | | | [phone] | | | +--------+ + + + [...] [facility]ENT[facility] | | | | | | [address] | | | | | | | [...]
--- OUTSIDE RECORDS SUMMARY | ~2020-05-08 | XMS | Encounter Summary ---
Demographics + + + | Address | [address] | | | [place] [address] | + + + | Home Phone [...] Providers + +------+ + | Care Equipment Manager Name | Role | Phone | + +------+ + | Rahul Silva MD | PCP | | + +------+ + Encounter Details +--------+ + + + + | Date | Type | Department | Care Team | Description | +--------+ + + + + | 12/07/ | Orders Only | [facility] | Farrukh Acuna MD | Essential | | 2020 | | NEPHROLOGY [place] | [address] [place] | hypertension | | | | [address] [place] | [address] [place], [place] | (Primary Dx); | | | | [address] [place], [place] | [address] | Secondary | | | | [address] | | hyperparathyroidism | | | | [phone] | | (HCC); Anemia of | | [...] Visit | | [address] [facility] | | | | | | [address] [place], [place] | | | | | | [address] [...] than 15 ml/min ([facility]) Chronic kidney | | disease, Stage V | + + | Persistent proteinuria Proteinuria | + + documented in this encounter"
--- OUTSIDE RECORDS SUMMARY | ~2020-05-08 | XMS | Encounter Summary ---
Demographics + + + | Address | [address] | | | [place] [address] | + + + | Home Phone [...] [place] | | | | | [address] | | + + + + + Care Team Providers + +------+ + | Care Supervisor Electrolytic Tinning Name | Role | Phone | + [...] Clinic | | | | | | [facility], [address] | | | | | | [place], [place] | | | | | | [address] | | | | | | [phone] | | | +--------+ + + + [...] as of this encounter Progress Notes Interface, Home Appliance Technician In - 01/03/2007 5:08 AM PST CLINIC DATE: 12/22/97 Mr. Andujar is referred by Dr. Jerry Smiley in the [facility] Department. He is currently followed by the Anesthesia Pain Service at [facility], and also recently has been [...] under Dr. Robert Carlson's supervision here at [facility]. His pain continued, exacerbated by [...] procedure at this time. Eric Mcclure M.D. Call Centre Supervisor, Department of Orthopaedics and Rehabilitation AY/egl A cc: Jerry Smiley M.D. (with letter) [address] [place] [address] [address] [place] [address] Robert Carlson M.D. FAX: [phone] Alina Moise M.D. FAX: [phone] [facility] Clinic[facility]X: [phone] documented in this encounter Plan of Treatment Not on filedocumented as of this encounter Visit Diagnoses Not on filedocumented in this encounter
--- OUTSIDE RECORDS SUMMARY | ~2020-05-08 | XMS | Encounter Summary ---
Demographics + + + | Address | [address] | | | [place] [address] | + + + | Home Phone [...] Team Providers + +------+ + | Care Stitcher Feeder Name | Role | Phone | [...] | | | [address] [place], [place] | [address] | | | | | [address] | | | | | | [phone] | | | +--------+ + + + [...] [place] | | | | | | [address] | | | | | | | [...]
--- OUTSIDE RECORDS SUMMARY | ~2020-05-08 | XMS | Encounter Summary ---
Demographics + + + | Address | [address] | | | [place] [address] | + + + | Home Phone [...] Team Providers + +------+ + | Care Implementation Coordinator Name | Role | Phone | [...] + + | 05/04/ | Refill | [facility] | Farrukh Acuna MD | Medication Refill | | 2020 | | NEPHROLOGY [place] | [address] [place] | | | | | [address] | [address] [place], [place] | | | | | [address] | [address] | | | | | [place], [place] | | | | | | [address] | | | | | | [phone] | | | +--------+--------+ + + + [...] [place] | | | | | | [address] | | | | | | | [...]
--- OUTSIDE RECORDS SUMMARY | ~2020-05-08 | XMS | Encounter Summary ---
Demographics + + + | Address | [address] | | | [place] [address] | + + + | Home Phone [...] Team Providers + +------+ + | Care Integrity Engineer Name | Role | Phone | + +------+ + | Rahul Silva MD | PCP | | + +------+ + Encounter Details +--------+ + + + + | Date | Type | Department | Care Team | Description | +--------+ + + + + | 07/17/ | Orders Only | [facility] | Conversion | | | 2016 | | NEPHROLOGY [place] | Transaction, | | | | | [address] | Provider Unknown | | | | | [address] [place] | | | | | | [address] | (Fax) | | | | | [phone] | | | +--------+ + + + [...] [facility] | | | | | | [address] | | | | | | | [...]
--- OUTSIDE RECORDS SUMMARY | ~2020-05-08 | XMS | Encounter Summary ---
Demographics + + + | Address | [address] | | | [place] [address] | + + + | Home Phone [...] Team Providers + +------+ + | Care Cmo Name | Role | Phone | + [...] + + | 08/18/ | Refill | [facility] | Sandy Capellan | Medication Refill | | 2019 | | NEPRHOLOGY PAIGE Valadez RN | | | | | [address] | | | | | | [address] [place], [place] | | | | | | [address] | | | | | | [phone] | | | +--------+--------+ + + + [...] [place] | | | | | | [address] | | | | | | | [...]
--- OUTSIDE RECORDS SUMMARY | ~2020-05-08 | XMS | Encounter Summary ---
Demographics + + + | Address | [address] | | | [place] [address] | + + + | Home Phone [...] Team Providers + +------+ + | Care Bin Operator Name | Role | Phone | [...] + + | 09/10/ | Anesthesia | [facility] | Venkata Carroll | | | 2019 | [facility] | [address] | | | | | OPERATING ROOM [address] | [address] | | | | | [address] | [place] [address] | | | | | [place], [place] | [phone] | | | | | [address] | | | | | | [phone] | | | +--------+ + + + + Anesthesia Record + + + + + | Procedure Name | Responsible | Anesthesia Start | Anesthesia Stop Time | | | Anesthesiologist | Time | | + + + + + | INSERTION AV FISTULA | Venkata Carroll, | 09/10/19 1307 | 09/10/19 1401 | | (Right BBF) (Right | WORK TICKET DISTRIBUTOR | | | | Arm Upper) | [...] 09/10/19 1600 by | | amor | [id number]-[id number] catheter system; | Trinidad Ramírez | Leana [...] | | | | | | [address] [place], [place] | | | | | | [address] | | | | | | | [...]
--- OUTSIDE RECORDS SUMMARY | ~2020-05-08 | XMS | Encounter Summary ---
Demographics + + + | Address | [address] | | | [place] [address] | + + + | Home Phone [...] Team Providers + +------+ + | Care Ap Processor Name | Role | Phone | + +------+ + PCP | Unavailable | + +------+ + Encounter Details +--------+ + + + + | Date | Type | Department | Care Team | Description | +--------+ + + + + | 05/28/ | Hospital | [facility] | Elisabeth, | CORON ATHEROSCL | | 2002 - | Encounter | [facility] | MD Joshua | [place] [facility] | | | | CLINICAL DECISION | [address] | | | 05/29/ | | [address] | [address] [place], [place] | | | 2002 | | [place], [place] | [address] | | | | | [address] | [phone] | | | | | [phone] | | | +--------+ + + + [...] Description | +--------+---------+ + + + | 07/06/ | Office | Nephrology | Farrukh Acuna MD | | | 2019 | Visit | | [address] [facility] | | | | | | [address] [place] | | | | | | [address] | | | | | | | | +--------+---------+ + + + documented as of this encounter Visit Diagnoses + + | Diagnosis | + + | Coronary atherosclerosis of beaver coronary artery | + + documented in this encounter"
--- OUTSIDE RECORDS SUMMARY | ~2020-05-08 | XMS | Encounter Summary ---
Demographics + + + | Address | [address] | | | [place] [address] | + + + | Home Phone [...] Providers + +------+ + | Care It Consulting Director Name | Role | Phone | + +------+ + | Rahul Silva MD | PCP | | + +------+ + Encounter Details +--------+ + + + + | Date | Type | Department | Care Team | Description | +--------+ + + + + | 06/12/ | Orders Only | [facility] | Farrukh Acuna MD | | | 2017 | | NEPHROLOGY [place] | [address] [place] | | | | | [address] [place] | [address] [place], [place] | | | | | [address] [place], [place] | [address] | | | | | [address] | | | | | | [phone] | | | +--------+ + + + [...] [place] | | | | | | [address] | | | | | | | [...]
--- OUTSIDE RECORDS SUMMARY | ~2020-05-08 | XMS | Encounter Summary ---
Demographics + + + | Address | [address] | | | [place] [address] | + + + | Home Phone [...] Team Providers + +------+ + | Care Rating Clerk Name | Role | Phone | [...] | | | [address] [place], [place] | [address] | | | | | [address] | | | | | | [phone] | | | +--------+ + + + [...] [place] | | | | | | [address] | | | | | | | [...]
--- OUTSIDE RECORDS SUMMARY | ~2020-05-08 | XMS | Encounter Summary ---
Demographics + + + | Address | [address] | | | [place] [address] | + + + | Home Phone [...] Team Providers + +------+ + | Care Maori Physiotherapist Name | Role | Phone | + [...] + + | 03/14/ | Refill | [facility] | Farrukh Acuna MD | Medication Refill | | 2020 | | NEPHROLOGY [place] | [address] [place] | | | | | [address] | [address] [place], [place] | | | | | [address] | [address] | | | | | [place], [place] | | | | | | [address] | | | | | | [phone] | | | +--------+--------+ + + + [...] [place] | | | | | | [address] | | | | | | | | +--------+---------+ + + + documented as of this encounter Visit Diagnoses + + | Diagnosis | + + | Essential hypertension Unspecified essential hypertension | + + | Persistent proteinuria Proteinuria | + + | CKD (chronic kidney disease) stage 5, GFR less than 15 ml/min ([facility]) Chronic kidney | | disease, Stage V | + + documented in this encounter"
--- OUTSIDE RECORDS SUMMARY | ~2020-05-08 | XMS | Encounter Summary ---
Demographics + + + | Address | [address] | | | [place] [address] | + + + | Home Phone [...] Providers + +------+ + | Care Manager R D Name | Role | Phone | + +------+ + | Rahul Silva MD | PCP | | + +------+ + Encounter Details +--------+ + + + + | Date | Type | Department | Care Team | Description | +--------+ + + + + | 01/11/ | Orders Only | [facility] | Farrukh Acuna MD | Essential | | 2020 | | NEPHROLOGY [place] | [address] [place] | hypertension | | | | [address] [place] | [address] [place], [place] | (Primary Dx); | | | | [address] [place], [place] | [address] | Persistent | | | | [address] | | proteinuria; Anemia | | | | [phone] | | of chronic kidney | | | | | | failure, stage 5 | | | | | | ([facility]); CKD (chronic | | | | | | kidney disease) | | | | | | stage 5, GFR less | | | | | | than 15 ml/min ([facility]) | +--------+ + [...] [place] | | | | | | [address] | | | | | | | [...] | | | | ([facility]) CKD (chronic | | | | | | kidney disease) | | | | | | stage 5, GFR less | | | | | | than 15 ml/min ([facility]) | | + [...] | | | | ([facility]) CKD (chronic | | | [...]
--- OUTSIDE RECORDS SUMMARY | ~2020-05-08 | XMS | Clinical Summary ---
Demographics + + + | Address | [address] | | | [place] [address] | + + + | Home Phone | | + + + | Preferred Language | Unknown | + + + | Marital Status | Single | + + + | Yarsanism Affiliation | PRO | + + + | Race | White | + + + | Ethnic Group | Not or | + + + Author + + + | Author | [facility] | + + + | Organization | [facility] | + + + | Address | Unknown | + + + | Phone | Unavailable | + + + Support + + + + + | Name | Relationship | Address | Phone | + + + + + | Darci Andujar | VALERIE | [place] | | | | | [address] | | + + + + + Care Team Providers + +------+ + | Care Fire Alarm Repairer Name | Role | Phone | + +------+ + | Rahul Silva MD | PCP | | + +------+ + Source Comments [place] is fully live on both [facility] Ambulatory and [facility] InPatient.[facility] Allergies No Known Allergies Medications [...]
--- OUTSIDE RECORDS SUMMARY | ~2020-05-08 | XMS | Encounter Summary ---
Demographics + + + | Address | [address] | | | [place] [address] | + + + | Home Phone [...] Team Providers + +------+ + | Care Polysomnographic Technician Name | Role | Phone | + +------+ + | Rahul Silva MD | PCP | | + +------+ + Encounter Details +--------+ + + + + | Date | Type | Department | Care Team | Description | +--------+ + + + + | 01/13/ | Orders Only | [facility] | Conversion | | | 2016 | | NEPHROLOGY [place] | Transaction, | | | | | [address] | Provider Unknown | | | | | [address] [place] | | | | | | [address] | (Fax) | | | | | [phone] | | | +--------+ + + + [...] [facility] | | | | | | [address] | | | | | | | [...] - 1.030 | EXTERNAL | | | [place], | | | LAB | | | [...] + + + | Red Blood | 4.17 (A) | 4.3 - 5.7 [...]
--- OUTSIDE RECORDS SUMMARY | ~2020-05-08 | XMS | Encounter Summary ---
Demographics + + + | Address | [address] | | | [place] [address] | + + + | Home Phone [...] Providers + +------+ + | Care Science Consultant Name | Role | Phone | [...] [address] | | | | | [place], [place] | [place], [place] | | | | | [address] | [address] | | | | | [phone] | [phone] | | | | | | | [...] 2020 | Visit | | [address] [facility] | | | | | | [facility] | | | | | | [address] | | | | | | | [...]
--- OUTSIDE RECORDS SUMMARY | ~2020-05-08 | XMS | Encounter Summary ---
Demographics + + + | Address | [address] | | | [place] [address] | + + + | Home Phone [...] Team Providers + +------+ + | Care Fine Unhairer Name | Role | Phone | + +------+ + | Rahul Silva MD | PCP | | + +------+ + Encounter Details +--------+ + + + + | Date | Type | Department | Care Team | Description | +--------+ + + + + | 08/13/ | Orders Only | [facility] | Farrukh Acuna MD | | | 2017 | | NEPHROLOGY [place] | [address] [place] | | | | | [address] [place] | [address] [place], [place] | | | | | [address] [place], [place] | [address] | | | | | [address] | | | | | | [phone] | | | +--------+ + + + [...] [place] | | | | | | [address] | | | | | | | [...] + + + | Red Blood | 3.45 (A) | 4.3 - 5.7 [...] | | | LAB | | | [place] | | | | | + + [...]
--- OUTSIDE RECORDS SUMMARY | ~2020-05-08 | XMS | Encounter Summary ---
Demographics + + + | Address | [address] | | | [place] [address] | + + + | Home Phone [...] Team Providers + +------+ + | Care Engineering Secretary Name | Role | Phone | [...] | | | [address] | [place] [address] | | | | | [place] [address] | | | | | | [phone] | | | +--------+ + + + [...] [place] | | | | | | [address] | | | | | | | [...]
--- OUTSIDE RECORDS SUMMARY | ~2020-05-08 | XMS | Encounter Summary ---
Demographics + + + | Address | [address] | | | [place] [address] | + + + | Home Phone [...] Team Providers + +------+ + | Care Underwater Trapper Name | Role | Phone | + +------+ + | Mehrdad Bergman | PCP | | + +------+ + Encounter Details +--------+ + + + + | Date | Type | Department | Care Team | Description | +--------+ + + + + | 03/16/ | Orders Only | [facility] | Trisha Conner DNP | | | 2020 | | VASCULAR SURGERY | [address] | | | | | [address] [place] | [place] | | | | | [place], [place] | [address] | | | | | [address] | | | | | | [phone] | | | +--------+ + + + [...] He does not want to come to [facility] until the pandemic is over . [...] [place] | | | | | | [address] | | | | | | | | +--------+---------+ + + + documented as of this encounter Visit Diagnoses Not on filedocumented in this encounter"
--- OUTSIDE RECORDS SUMMARY | ~2020-05-08 | XMS | Encounter Summary ---
Demographics + + + | Address | [address] | | | [place] [address] | + + + | Home Phone [...] Providers + +------+ + | Care Construction Coordinator Name | Role | Phone | + +------+ + | Rahul Silva MD | PCP | | + +------+ + Encounter Details +--------+ + + + + | Date | Type | Department | Care Team | Description | +--------+ + + + + | 05/22/ | Orders Only | [facility] | Farrukh Acuna MD | | | 2018 | | NEPHROLOGY [place] | [address] [place] | | | | | [address] [place] | [address] [place], [place] | | | | | [address] [place], [place] | [address] | | | | | [address] | | | | | | [phone] | | | +--------+ + + + [...] [place] | | | | | | [address] | | | | | | | [...]
--- OUTSIDE RECORDS SUMMARY | ~2020-05-08 | XMS | Encounter Summary ---
Demographics + + + | Address | [address] | | | [place] [address] | + + + | Home Phone [...] Team Providers + +------+ + | Care Wash Barrel Leader Name | Role | Phone | [...] | [address] VI[address] BEC[address]IL | [place] [address] | | | | | [place] [address] | | | | | | [phone] | | | +--------+ + + + [...] 2020 | Visit | | [address] [facility] | | | | | | [address] [place] | | | | | | [address] | | | | | | | [...]
--- OUTSIDE RECORDS SUMMARY | ~2020-05-08 | XMS | Encounter Summary ---
Demographics + + + | Address | [address] | | | [place] [address] | + + + | Home Phone [...] Team Providers + +------+ + | Care Crude Oil Treater Name | Role | Phone | [...] [address] | | | | | [place], [place] | [place], [place] | | | | | [address] | [address] | | | | | [phone] | [phone] | | | | | | | [...] 2020 | Visit | | [address] [facility] | | | | | | [facility] | | | | | | [address] | | | | | | | [...]
--- OUTSIDE RECORDS SUMMARY | ~2020-05-08 | XMS | Encounter Summary ---
Demographics + + + | Address | [address] | | | [place] [address] | + + + | Home Phone [...] [place] | | | | | [address] | | + + + + + Care Team Providers + +------+ + | Care Worship Director Name | Role | Phone | + +------+ + PCP | Unavailable | + +------+ + Encounter Details +--------+ + + + + | Date | Type | Department | Care Team | Description | +--------+ + + + + | 12/28/ | Procedure - | Dig[facility]ive [facility] | Record, Operation | Operative Report | | 1996 | | [facility] | | | | | Transcribed | [address] | | | | | | Mailcode: [facility] | | | | | | [facility] | | | | | | Healing, Building [address] | | | | | | [facility] [place] | | | | | | [address] | | | | | | [phone] | | | +--------+ + + + [...] | + + | 12/28/1996 12:00 AM [facility] | | [facility] | | [address], [place] [address] | | [facility] | | | | OPERATION RECORD | | | | Med Rec No.: [id number] Date: 12/28/96 | | | | Name: Mehran Andujarald Arturo | | | | | | ATTENDING SURGEON: Robert Carlson M.D. | | Professor, | | Vascular Surgery | | | | RHEUMATOLOGY SPECIALIST(S): Nick Noriega M.D. | | Set Rider, General Surgery | | | | POSTOPERATIVE DIAGNOSIS(ES): Left stump osteophyte. | | | | OPERATION(S) PERFORMED: Revision of left nteme-luo-entn amputation | | and excision of stump osteophyte. | | | | SPECIMEN(S) REMOVED: 1. Swab of pseudocapsule for culture. | | 2. Osteophyte to Pathology. | | | | ANESTHESIA: General endotracheal anesthesia. | | | | INDICATIONS: The patient is a 56-year-old white male who | | is status post left kkosa-cvz-hwpn | | amputation three years ago secondary | | to embolus. He has developed pain over the stump. A recent CT scan showed | | an osteophyte growing on the end of the stump. | | | | PROCEDURE: The patient was taken to the Operating Room. | | General endotracheal anesthesia was | | performed by Anesthesia. The | | left kamrf-vml-vxvd amputation stump was sterilely prepped and draped [...] | | Nick Noriega M.D. | | Set Rider, General Surgery | | Robert Carlson M.D. | | Professor, | | Vascular Surgery | | | | DOMINIC/jc | | | | A | | | | cc: | | | + + documented in this encounter Visit Diagnoses Not on filedocumented in this encounter"
--- OUTSIDE RECORDS SUMMARY | ~2020-05-08 | XMS | Encounter Summary ---
Demographics + + + | Address | [address] | | | [place] [address] | + + + | Home Phone [...] Providers + +------+ + | Care Rotary Cutter Feeder Name | Role | Phone | [...] | 07/30/ | Telephone | [facility] | Brian Orosco MD | Establish Care | | 2019 | | VASCULAR SURGERY | [address] | (Referral) | | | | [address] [place] | [place], [place] | | | | | [place], [place] | [address] | | | | | [address] | [phone] | | | | | [phone] | | | +--------+ + + + [...] [place] | | | | | | [address] | | | | | | (Fax) | | +--------+---------+ + + + documented as of this encounter Visit Diagnoses Not on filedocumented in this encounter"
--- OUTSIDE RECORDS SUMMARY | ~2020-05-08 | XMS | Clinical Summary ---
Demographics + + + | Address | [address] | | | [place] [address] | + + + | Home Phone [...] Providers + +------+ + | Care Contract Post Office Clerk Name | Role | Phone | [...] | | | | | | | ([facility]), Secondary | | | | | | | | hyperparathyroidism | | | | | | | | ([facility]) | | | | | | [...] | | | | | | | ([facility]), CKD (chronic | | | | | | | | kidney disease) | | | | | | | | stage 5, GFR less | | | | | | | | than 15 ml/min ([facility]) | | | | | | [...] | | | | | | ml/min ([facility]) | | | | | | [...] | | | | | | | ([facility]), Persistent | | | | | | | | proteinuria, CKD | | | | | | | | (chronic kidney | | | | | | | | disease) stage 5, | | | | | | | | GFR less than 15 | | | | | | | | ml/min ([facility]) | | | | | | [...] automatically from request for surgery | | [id number] | + + + + + | [...] & Plan: Controlled on current | | [id number] yr old male with COPD, current heavy [...] to A. | | | | | Nylon Winder | IVT confirmation | | | | [...] 5 | | | | | | ([facility]); Persistent | | | | | | proteinuria; CKD | | | | | | (chronic kidney | | | | | | disease) stage 5, | | | | | | GFR less than 15 | | | | | | ml/min ([facility]) | +--------+ + + + + | 03/27/ | Virtual | Nephrology | Farrukh Acuna MD | CKD (chronic kidney | | 2020 | Office | | | disease) stage 5, | | | Visit | | | GFR less than 15 | | | | | | ml/min ([facility]) | | | | | | (Primary Dx); Anemia | | | | | | of chronic kidney | | | | | | failure, stage 5 | | | | | | ([facility]); Edema of | | | | | [...] Abdi | | | | | | Nylon Winder | | +--------+ + + + + [...] Documentati | Nephrology | Simon, | Results ([facility] | | 2019 | on | | Charlie Abdi | 02/24/20) | | | | | Nylon Winder | | +--------+ + + + + [...] 2019 | Visit | | [address] [facility] | | | | | | [address] | | | | | | [address] | | | | | | | [...] +--------+ +---------+--------+ | MEDICARE | MEDICA | [id number] | 07/01/20 | [phone] | | Medica | | | RE | | 05-Pre | 5 | | re | | | PART A | | sent | | | | | | AND B | | | | | | + +--------+ +--------+ +---------+--------+ | [employer] | MODA | [id number] | 07/04/20 | [phone] | | Medica | | MEDICAID HMO | HEALTH | | 19-Pre | 1 | | id | | | MDCD | | sent | | | | | | [place]MO [place] | | | | | | + +--------+ +--------+ +---------+--------+ | [employer] | MODA | [id number] | | [phone] | | Medica | | MEDICAID HMO [...] Arturo | al/Fam | | 1940 | [phone] | [place] | | | chual | | | 1 (Home) | [address] | + +--------+ +--------+ + + | AndujarKavon silva | Person | Self | [birth year] | | [address] | | Arturo | al/Scott | | 1940 | [phone] | [place] | | | chula | | | 1 (Home) | [address] | + +--------+ +--------+ + + Advance Directives + + + + + | Type | Date Recorded | Patient | Explanation | | | | Experimental Rocket Sled Mechanic | | + + + + + | Power of | | | | | Reel Repairer | | | | + + [...]
--- OUTSIDE RECORDS SUMMARY | ~2020-05-08 | XMS | Encounter Summary ---
Demographics + + + | Address | [address] | | | [place] [address] | + + + | Home Phone [...] Providers + +------+ + | Care Clinical Services Assistant Name | Role | Phone | + +------+ + | Rahul Silva MD | PCP | | + +------+ + Encounter Details +--------+ + + + + | Date | Type | Department | Care Team | Description | +--------+ + + + + | 07/30/ | Orders Only | [facility] | Conversion | | | 2016 | | NEPRHOLOGY [place] | Transaction, | | | | | [address] | Provider Unknown | | | | | [address] [place], [place] | [phone] | | | | | [address] | (Fax) | | | | | [phone] | | | +--------+ + + + [...] | | | | | | [address] [facility] | | | | | | [address] | | | | | | | [...]
--- OUTSIDE RECORDS SUMMARY | ~2020-05-08 | XMS | Encounter Summary ---
Demographics + + + | Address | [address] | | | [place] [address] | + + + | Home Phone [...] Providers + +------+ + | Care Film Library Clerk Name | Role | Phone | + +------+ + | Rahul Silva MD | PCP | | + +------+ + Encounter Details +--------+---------+ + + + | Date | Type | Department | Care Team | Description | +--------+---------+ + + + | 07/26/ | Office | [facility] | Farrukh Acuna MD | Stage 5 chronic | | 2019 | Visit | NEPHROLOGY [place] | [address] [place] | kidney disease not | | | | [address] | [address] [place], [place] | on chronic dialysis | | | | [address] | [address] | (HCC) (Primary Dx); | | | | [place], [place] | | Edema of lower | | | | [address] | | extremity; Tobacco | | | | [phone] | | dependence syndrome; | | | [...] Also: I see no need for acute WATER SOFTENER SERVICER. I see no need to send him [...] Notes by Farrukh Acuna MD at 05/31/19 6395 Author: Farrukh Acuna MD Service: (none) Author Type: Physician Filed: 05/31/19 1232 Encounter Date: 05/31/2019 Status: Signed Field Services Manager: Farrukh Acuna MD (Physician) Patient Active Problem [...] 10/2016 with severe pneumonia, severe ZEKE; needed WATER SOFTENER SERVICER for ~5 weeks b efore renal function recovery mid 12/2016. He was admitted to [facility] for 3 nights in July 2016 [...] 19.5 (A) 05/27/2019 LABPROT 2,445.6 (A) 03/01/2019 [id number] 30 10/08/2018 Assessment: Mr. Andujar is a 78 y.o. male patient with stage IV CKD on a background of diabetes & hypert ension and recent hospitalization for C-diff and hehydration. The most likely pathology here is that of diabetic nephropathy +/- hypertensive nephrosclerosis/arteriolosclerosis. He was hospitalized in 10/2016 with severe pneumonia, severe ZEKE; needed WATER SOFTENER SERVICER for ~5 weeks b efore renal function [...] Also: I see no need for acute WATER SOFTENER SERVICER. I see no need to send him to the ED. I again sent him for a pre-dialysis Options class AELXI. I sent him for evaluation by the [...] concerns. Truly yours, Farrukh Acuna MD FACP, [facility], [place] documented in this enco unter Plan of Treatment +--------+---------+ + + + | Date | Type | Specialty | Care Team | Description | +--------+---------+ + + + | 06/05/ | Office | Nephrology | Farrukh Acuna MD | | | 2019 | Visit | | [address] [facility] | | | | | | [address] [place], [place] | | | | | | [address] | | | | | | | [...]
--- OUTSIDE RECORDS SUMMARY | ~2020-05-08 | XMS | Encounter Summary ---
Demographics + + + | Address | [address] | | | [place] [address] | + + + | Home Phone [...] Team Providers + +------+ + | Care Squeegeer And Former Name | Role | Phone | + +------+ + | Rahul Silva MD | PCP | | + +------+ + Encounter Details +--------+---------+ + + + | Date | Type | Department | Care Team | Description | +--------+---------+ + + + | 07/26/ | Office | [facility] | Farrukh Acuna MD | Stage 5 chronic | | 2019 | Visit | NEPHROLOGY [place] | [address] [place] | kidney disease not | | | | [address] | [address] [place], [place] | on chronic dialysis | | | | [address] | [address] | (HCC) (Primary Dx); | | | | [place], [place] | | Edema of lower | | | | [address] | | extremity; Tobacco | | | | [phone] | | dependence syndrome; | | | [...] Also: I see no need for acute COCOA MILLING MACHINE OPERATOR. I see no need to [...] Notes by Farrukh Acuna MD at 05/31/19 0981 Author: Farrukh Acuna MD Service: (none) Author Type: Physician Filed: 05/31/19 1232 Encounter Date: 05/31/2019 Status: Signed Compliance Manager: Farrukh Acuna MD (Physician) Patient Active Problem List Diagnosis CKD (chronic kidney disease), stage IV Type 2 diabetes mellitus with diabetic nephropathy, with long-term current use of insul in ([facility]) FH: HTN (hypertension) Edema of [...] 10/2016 with severe pneumonia, severe ZEKE; needed COCOA MILLING MACHINE OPERATOR for ~5 weeks b efore renal function recovery mid 12/2016. He was admitted to [facility] for 3 nights in July [...] 19.5 (A) 05/27/2019 LABPROT 2,445.6 (A) 03/01/2019 [id number] 30 10/08/2018 Assessment: Mr. Andujar is a 78 y.o. male patient with stage IV CKD on a background of diabetes & hypert ension and recent hospitalization for C-diff and hehydration. The most likely pathology here is that of diabetic nephropathy +/- hypertensive nephrosclerosis/arteriolosclerosis. He was hospitalized in 10/2016 with severe pneumonia, severe ZEKE; needed COCOA MILLING MACHINE OPERATOR for ~5 weeks b efore [...] Also: I see no need for acute COCOA MILLING MACHINE OPERATOR. I see no need to [...] concerns. Truly yours, Farrukh Acuna MD FACP, [facility], [place] documented in this enco unter Plan of Treatment +--------+---------+ + + + | Date | Type | Specialty | Care Team | Description | +--------+---------+ + + + | 06/05/ | Office | Nephrology | Farrukh Acuna MD | | | 2019 | Visit | | [address] [facility] | | | | | | [address] [place], [place] | | | | | | [address] | | | | | | | [...]
--- OUTSIDE RECORDS SUMMARY | ~2020-05-08 | XMS | Encounter Summary ---
Demographics + + + | Address | [address] | | | [place] [address] | + + + | Home Phone [...] [place] HINSON | | | | | [address] | | + + + + + Care Team Providers + +------+ + | Care Annealing Oven Operator Name | Role | Phone | [...] | | | | | | [address] | | | | | | [place], [place] | | | | | | [address] | | | | | | [phone] | | | +--------+ + + + [...] as of this encounter Progress Notes Interface, Coal Digger In - 02/14/2007 3:12 AM PDT [address] [address] or September 09, 1996 Nestor VALLES MD [address] [place] [address] RE: PORFIRIO ZAVALA MR#: [id number] Valles: Your patient, Porfirio Zavala, was seen for follow up today in the Neurosurgery Clinic at [facility]. 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 Following our initial evaluation, we recommended [...] Fellow, Neurosurgery Alina Moise M.D. Professor and Lecturer In Marketing, Division of Neurosurgery HECTOR/hiro documented in this encounter Plan of Treatment Not on filedocumented as of this encounter Visit Diagnoses Not on filedocumented in this encounter"
--- OUTSIDE RECORDS SUMMARY | ~2020-05-08 | XMS | Encounter Summary ---
Demographics + + + | Address | [address] | | | [place] [address] | + + + | Home Phone [...] Team Providers + +------+ + | Care Base Wad Operator Adjuster Name | Role | Phone | [...] | | | MARIA VICTORIA BECERRIL | [place] [address] | | | | | [place] [address] | | | | | | [phone] | | | +--------+ + + + [...] Visit | | [address] [facility] [address] | | | | | | [address] [place] | | | | | | [address] | | | | | | | [...]
--- OUTSIDE RECORDS SUMMARY | ~2020-05-08 | XMS | Encounter Summary ---
Demographics + + + | Address | [address] | | | [place] [address] | + + + | Home Phone [...] Team Providers + +------+ + | Care Middle School Assistant Principal Name | Role | Phone | + +------+ + | Rahul Silva MD | PCP | | + +------+ + Encounter Details +--------+ + + + + | Date | Type | Department | Care Team | Description | +--------+ + + + + | 03/24/ | Orders Only | [facility] | Farrukh Acuna MD | | | 2017 | | NEPHROLOGY [place] | [address] [place] | | | | | [address] [place] | [address] [place], [place] | | | | | [address] [place], [place] | [address] | | | | | [address] | | | | | | [phone] | | | +--------+ + + + [...] [place] | | | | | | [address] | | | | | | | [...]
--- OUTSIDE RECORDS SUMMARY | ~2020-05-08 | XMS | Encounter Summary ---
Demographics + + + | Address | [address] | | | [place] [address] | + + + | Home Phone [...] Providers + +------+ + | Care Signal Operator Technical Name | Role | Phone | + [...] [address] | | | | | [place], [place] | [place], [place] | | | | | [address] | [address] | | | | | [phone] | [phone] | | | | | | | [...] | | | | [facility] | | | | | | [address] | | | | | | | [...]
--- OUTSIDE RECORDS SUMMARY | ~2020-05-08 | XMS | Encounter Summary ---
Demographics + + + | Address | [address] | | | [place] [address] | + + + | Home Phone [...] Providers + +------+ + | Care Bar Manager Name | Role | Phone | + +------+ + | Rahul Silva MD | PCP | | + +------+ + Encounter Details +--------+ + + + + | Date | Type | Department | Care Team | Description | +--------+ + + + + | 01/13/ | Orders Only | [facility] | Conversion | | | 2016 | | NEPHROLOGY [place] | Transaction, | | | | | [address] | Provider Unknown | | | | | [address] [place] | | | | | | [address] | (Fax) | | | | | [phone] | | | +--------+ + + + [...] [place] | | | | | | [address] | | | | | | | [...] - 1.030 | EXTERNAL | | | [place], | | | LAB | | | [...]
--- OUTSIDE RECORDS SUMMARY | ~2020-05-08 | XMS | Encounter Summary ---
Demographics + + + | Address | [address] | | | [place] [address] | + + + | Home Phone [...] Team Providers + +------+ + | Care Cable Television Line Technician Name | Role | Phone | [...] [address] Young | | | | | [place], [place] | [place], [place] | | | | | [address] | [address] | | | | | [phone] | [phone] | | | | | | | [...] 2020 | Visit | | [address] [facility] | | | | | | [facility] | | | | | | [address] | | | | | | | [...]
--- OUTSIDE RECORDS SUMMARY | ~2020-05-08 | XMS | Encounter Summary ---
Demographics + + + | Address | [address] | | | [place] [address] | + + + | Home Phone [...] Team Providers + +------+ + | Care Pricing Strategist Name | Role | Phone | [...] + + | 09/28/ | Telephone | [facility] | Jason Sandy D, | Appointment | | 2018 | | VASCULAR SURGERY | RN | | | | | [address] | | | | | | [place] | | | | | | [address] | | | | | | [phone] | | | +--------+ + + + [...] | | | | | | [address] [place] | | | | | | [address] | | | | | | | | +--------+---------+ + + + documented as of this encounter Visit Diagnoses Not on filedocumented in this encounter"
--- OUTSIDE RECORDS SUMMARY | ~2020-05-08 | XMS | Encounter Summary ---
Demographics + + + | Address | [address] | | | [place] [address] | + + + | Home Phone [...] Providers + +------+ + | Care Development Professional Name | Role | Phone | [...] | | | [address] | Youth Officer | | | | | [address] | | | | | | [place] | | | | | | [address] | | | | | | [phone] | | | +--------+ + + + [...] [place] | | | | | | [address] | | | | | | (Fax) [...]
--- OUTSIDE RECORDS SUMMARY | ~2020-05-08 | XMS | Encounter Summary ---
Demographics + + + | Address | [address] | | | [place] [address] | + + + | Home Phone [...] Providers + +------+ + | Care Family Day Carer Name | Role | Phone | + +------+ + | Rahul Silva MD | PCP | | + +------+ + Encounter Details +--------+ + + + + | Date | Type | Department | Care Team | Description | +--------+ + + + + | 04/10/ | Orders Only | [facility] | Conversion | | | 2014 | | NEPRHOLOGY [place] | Transaction, | | | | | [address] | Provider Unknown | | | | | [address] [place], [place] | | | | | | [address] | (Fax) | | | | | [phone] | | | +--------+ + + + [...] [place] | | | | | | [address] | | | | | | | [...]
--- OUTSIDE RECORDS SUMMARY | ~2020-05-08 | XMS | Encounter Summary ---
Demographics + + + | Address | [address] | | | [place] [address] | + + + | Home Phone [...] Team Providers + +------+ + | Care Numberer And Wirer Name | Role | Phone | + +------+ + | Rahul Silva MD | PCP | | + +------+ + Encounter Details +--------+ + + + + | Date | Type | Department | Care Team | Description | +--------+ + + + + | 06/12/ | Orders Only | [facility] | Farrukh Acuna MD | | | 2017 | | NEPHROLOGY [place] | [address] [place] | | | | | [address] [place] | [address] [place], [place] | | | | | [address] [place], [place] | [address] | | | | | [address] | | | | | | [phone] | | | +--------+ + + + [...] [place] | | | | | | [address] | | | | | | | [...]
--- OUTSIDE RECORDS SUMMARY | ~2020-05-08 | XMS | Encounter Summary ---
Demographics + + + | Address | [address] | | | [place] [address] | + + + | Home Phone [...] RAD[place] HINSON | | | | | [address] | | + + + + + Care Team Providers + +------+ + | Care Presentation Team Member Name | Role | Phone [...] | | | | [facility], [address] [place] [address] | | | | | | [place], [place] | | | | | | [address] | | | | | | [phone] | | | +--------+ + + + [...] as of this encounter Discharge Summaries Interface, Business Analytics Manager In - 02/05/2007 1:03 AM PST [address] [address] [facility] MEDICAL SUMMARY OF HOSPITALIZATION Med Rec No.: [id number] Admission Date: 12/28/96 Name: Kavon Andujar Discharge Date: 01/03/97 STAFF PHYSICIAN: Robert Carlson M.D. Professor, Vascular Surgery PRINCIPAL FINAL DIAGNOSIS: Osteophyte of left huzxu-xir-wfan amputation stump. ADDITIONAL DIAGNOSES: Phantom pain. PRINCIPAL PROCEDURE: Revision of left usjre-lwj-ywfv amputation stump and excision of left stump osteophyte. 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 Since then he has had pain in the stump. On a computed tomography (CT) scan, it was noted that he had a large bone spur and a cyst in his stump site. HOSPITAL COURSE: The patient was admitted on December 28 and underwent revision of his left yovyd-obo-mung amputation stump with excision of his left [...] Normal. 3. DIET: Normal. Nick Noriega M.D. Porcelain Technician, General Surgery Robert Carlson M.D. Professor, Vascular Surgery DOMINIC/jc A cc: RUBIA KNAPP MD [address] [facility] [address] documented in this encounter Plan of Treatment Not on filedocumented as of this encounter Visit Diagnoses Not on filedocumented in this encounter"
--- OUTSIDE RECORDS SUMMARY | ~2020-05-08 | XMS | Encounter Summary ---
Demographics + + + | Address | [address] | | | [place] [address] | + + + | Home Phone [...] [place] HINSON | | | | | [address] | | + + + + + Care Team Providers + +------+ + | Care Quality Assurance Coach Name | Role | Phone | [...] [address] | | | | | | [place], [place] | | | | | | [address] | | | | | | [phone] | | | +--------+ + + + [...]
--- OUTSIDE RECORDS SUMMARY | ~2020-05-08 | XMS | Encounter Summary ---
Demographics + + + | Address | [address] | | | [place] [address] | + + + | Home Phone [...] Team Providers + +------+ + | Care Swimming Professor Name | Role | Phone | [...] | | | MARIA VICTORIA BECERRIL | [place] [address] | | | | | [place] [address] | | | | | | [phone] | | | +--------+ + + + [...] | | | | | | [address] [place] | | | | | | [address] | | | | | | | [...]
--- OUTSIDE RECORDS SUMMARY | ~2020-05-08 | XMS | Encounter Summary ---
Demographics + + + | Address | [address] | | | [place] [address] | + + + | Home Phone [...] Providers + +------+ + | Care Apartment Manager Name | Role | Phone | [...] POPLAR | (cancellation) | | | | [place], | [place], [place] | | | | | [place] [address] | [address] | | | | | [phone] | | | +--------+ + + + [...] [place] | | | | | | [address] | | | | | | | | +--------+---------+ + + + documented as of this encounter Visit Diagnoses Not on filedocumented in this encounter"
--- OUTSIDE RECORDS SUMMARY | ~2020-05-08 | XMS | Encounter Summary ---
Demographics + + + | Address | [address] | | | [place] [address] | + + + | Home Phone [...] Providers + +------+ + | Care Master Planner Name | Role | Phone | + +------+ + | Rahul Silva MD | PCP | | + +------+ + Encounter Details +--------+ + + + + | Date | Type | Department | Care Team | Description | +--------+ + + + + | 05/27/ | Orders Only | [facility] | Farrukh Acuna MD | | | 2019 | | NEPHROLOGY [place] | [address] [place] | | | | | [address] [place] | [address] [place], [place] | | | | | [address] [place], [place] | [address] | | | | | [address] | | | | | | [phone] | | | +--------+ + + + [...] 2020 | Visit | | [address] [facility] | | | | | | [address] [place] | | | | | | [address] | | | | | | | [...]
--- OUTSIDE RECORDS SUMMARY | ~2020-05-08 | XMS | Encounter Summary ---
Demographics + + + | Address | [address] | | | [place] [address] | + + + | Home Phone [...] Team Providers + +------+ + | Care Reference Assistant Name | Role | Phone | [...] + + | 01/10/ | Documentati | [facility] | Simon, | Results (01/07/20) | | 2020 | on | NEPHROLOGY [place] | [facility] | | | | | [address] | Cook Chef | | | | | [address] [place], [place] | | | | | | [address] | | | | | | [phone] | | | +--------+ + + + [...] [place] | | | | | | [address] | | | | | | | [...]
--- OUTSIDE RECORDS SUMMARY | ~2020-05-08 | XMS | Encounter Summary ---
Demographics + + + | Address | [address] | | | [place] [address] | + + + | Home Phone [...] Team Providers + +------+ + | Care Banquet Set Up Person Name | Role | Phone | + +------+ + | Rahul Silva MD | PCP | | + +------+ + Encounter Details +--------+ + + + + | Date | Type | Department | Care Team | Description | +--------+ + + + + | 07/11/ | Orders Only | [facility] | Farrukh Acuna MD | | | 2013 | | NEPHROLOGY [place] | [address] [place] | | | | | [address] [place] | [address] [place], [place] | | | | | [address] [place], [place] | [address] | | | | | [address] | | | | | | [phone] | | | +--------+ + + + [...] 2019 | Visit | | [address] [facility] | | | | | | [address] [facility] | | | | | | [address] | | | | | | | [...] | | | LAB | | | LUX[place]OURGER | | | | | + + [...]
--- OUTSIDE RECORDS SUMMARY | ~2020-05-08 | XMS | Encounter Summary ---
Demographics + + + | Address | [address] | | | [place] [address] | + + + | Home Phone [...] Providers + +------+ + | Care Administrative Assistant Name | Role | Phone [...] + | 02/07/ | Refill | [facility] | Farrukh Acuna MD | Medication Refill | | 2020 | | NEPHROLOGY [place] | [address] [place] | | | | | [address] | [address] [place], [place] | | | | | [facility] [address] | [address] | | | | | [place], [place] | | | | | | [address] | | | | | | [phone] | | | +--------+--------+ + + + [...] 2020 | Visit | | [address] [facility] | | | | | | [address] [place] | | | | | | [address] | | | | | | | | +--------+---------+ + + + documented as of this encounter Visit Diagnoses + + | Diagnosis | + + | Essential hypertension - Primary Unspecified essential hypertension | + + documented in this encounter"
--- OUTSIDE RECORDS SUMMARY | ~2020-05-08 | XMS | Encounter Summary ---
Demographics + + + | Address | [address] | | | [place] [address] | + + + | Home Phone [...] Providers + +------+ + | Care Power Chisel Operator Name | Role | Phone | [...] | | | [address] [place], [place] | [address] | | | | | [address] | | | | | | [phone] | | | +--------+ + + + [...] [place] | | | | | | [address] | | | | | | | [...]
--- OUTSIDE RECORDS SUMMARY | ~2020-05-08 | XMS | Encounter Summary ---
Demographics + + + | Address | [address] | | | [place] [address] | + + + | Home Phone [...] Team Providers + +------+ + | Care Cold Roll Inspector Name | Role | Phone | [...] [address] | | | | | [place], [place] | [place], [place] | | | | | [address] | [address] | | | | | [phone] | [phone] | | | | | | | [...] 2020 | Visit | | [address] [facility] | | | | | | [facility] | | | | | | [address] | | | | | | | [...]
--- OUTSIDE RECORDS SUMMARY | ~2020-05-08 | XMS | Encounter Summary ---
Demographics + + + | Address | [address] | | | [place] [address] | + + + | Home Phone [...] Providers + +------+ + | Care General Ledger Accountant Name | Role | Phone | [...] | | | MARIA VICTORIA BECERRIL | [place] [address] | | | | | [place] [address] | | | | | | [phone] | | | +--------+ + + + [...] | | | | | | [address] [place] | | | | | | [address] | | | | | | | [...]
--- OUTSIDE RECORDS SUMMARY | ~2020-05-08 | XMS | Encounter Summary ---
Demographics + + + | Address | [address] | | | [place] [address] | + + + | Home Phone [...] Team Providers + +------+ + | Care Early Childhood Education Instructor Name | Role | Phone [...] | | | MARIA VICTORIA BECERRIL | [place] [address] | | | | | [place] [address] | | | | | | [phone] | | | +--------+ + + + [...] [place] | | | | | | [address] | | | | | | | [...]
--- OUTSIDE RECORDS SUMMARY | ~2020-05-08 | XMS | Encounter Summary ---
Demographics + + + | Address | [address] | | | [place] [address] | + + + | Home Phone [...] Providers + +------+ + | Care Tele Rn Name | Role | Phone | [...] + + | 12/21/ | Documentati | [facility] | Alfred, | Other (Ramone live | | 2020 | on | NEPHROLOGY [place] | Charlie Abdi | order sent | | | | [address] | Casting Sorter | confirmation | | | | [address] [place], [place] | | received.) | | | | [address] | | | | | | [phone] | | | +--------+ + + + [...] 2019 | Visit | | [address] [facility] | | | | | | [address] [place] | | | | | | [address] | | | | | | | | +--------+---------+ + + + documented as of this encounter Visit Diagnoses Not on filedocumented in this encounter"
--- OUTSIDE RECORDS SUMMARY | ~2020-05-08 | XMS | Encounter Summary ---
Demographics + + + | Address | [address] | | | [place] [address] | + + + | Home Phone [...] Team Providers + +------+ + | Care Gerontological Nurse Practitioner Name | Role | Phone | [...] | on | NEPHROLOGY [place] | [facility] | | | | | [address] | Auditor Appraiser | | | | | [address] | | | | | | [place] | | | | | | [address] | | | | | | [phone] | | | +--------+ + + + [...] [place] | | | | | | [address] | | | | | | (Fax) [...]
--- OUTSIDE RECORDS SUMMARY | ~2020-05-08 | XMS | Encounter Summary ---
Demographics + + + | Address | [address] | | | [place] [address] | + + + | Home Phone [...] [place] HINSON | | | | | [address] | | + + + + + Care Team Providers + +------+ + | Care Anchor Tacker Name | Role | Phone | [...] [id number] | | | | | | [place], [place] | | | | | | [address] | | | | | | [phone] | | | +--------+ + + + [...] [facility] | [address] | [place] [address] | | | PATHOLOGY | [address] [...] [facility] | [address] | [place] [address] | | | PATHOLOGY | [address] | | | + + + + + documented in this encounter Visit Diagnoses Not on filedocumented in this encounter"
--- OUTSIDE RECORDS SUMMARY | ~2020-05-08 | XMS | Encounter Summary ---
Demographics + + + | Address | [address] | | | [place] [address] | + + + | Home Phone [...] Team Providers + +------+ + | Care Reflesher Name | Role | Phone | + +------+ + | Rahul Silva MD | PCP | | + +------+ + Encounter Details +--------+---------+ + + + | Date | Type | Department | Care Team | Description | +--------+---------+ + + + | 01/10/ | Office | [facility] | Farrukh Acuna MD | CKD (chronic kidney | | 2020 | Visit | NEPHROLOGY [place] | [address] | disease) stage 5, | | | | [address] | [address] [place], [place] | GFR less than 15 | | | | [address] | [address] | ml/min (HCC) | | | | [place], [place] | | (Primary Dx); Anemia | | | | [address] | | of chronic kidney | | | | [phone] | | failure, stage 5 | | [...] 10/2016 with severe pneumonia, severe ZEKE; needed MACHINE ASSISTANT for ~5 weeks b efore renal function recovery mid 12/2016. He was admitted to [facility] for 3 nights in July 2016 for [...] 10/2016 with severe pneumonia, severe ZEKE; needed MACHINE ASSISTANT for ~5 weeks b efore renal [...] Also: I see no need for acute MACHINE ASSISTANT. I see no need to send [...] | | | | | | [address] [place], [place] | | | | | | [address] | | | | | | | [...] ([facility]) | + + | Edema [...]
--- OUTSIDE RECORDS SUMMARY | ~2020-05-08 | XMS | Encounter Summary ---
Demographics + + + | Address | [address] | | | [place] [address] | + + + | Home Phone [...] Providers + +------+ + | Care Machine Icer Name | Role | Phone | + [...] | | | MARIA VICTORIA BECERRIL | [place] [address] | | | | | [place] [address] | | | | | | [phone] | | | +--------+ + + + [...] | | | | | | [address] [place] | | | | | | [address] | | | | | | | [...]
--- OUTSIDE RECORDS SUMMARY | ~2020-05-08 | XMS | Encounter Summary ---
Demographics + + + | Address | [address] | | | [place] [address] | + + + | Home Phone [...] Providers + +------+ + | Care Repairer Resistance Welding Machines Name | Role | Phone | + +------+ + | Rahul Silva MD | PCP | | + +------+ + Encounter Details +--------+ + + + + | Date | Type | Department | Care Team | Description | +--------+ + + + + | 08/13/ | Orders Only | [facility] | Conversion | | | 2016 | | NEPHROLOGY [place] | Transaction, | | | | | [address] | Provider Unknown | | | | | [address] [place] | | | | | | [address] | (Fax) | | | | | [phone] | | | +--------+ + + + [...] [place] | | | | | | [address] | | | | | | | [...]
--- OUTSIDE RECORDS SUMMARY | ~2020-05-08 | XMS | Encounter Summary ---
Demographics + + + | Address | [address] | | | [place] [address] | + + + | Home Phone [...] Providers + +------+ + | Care Licensed Esthetician Name | Role | Phone | + [...] [address] | | | | | [place], [place] | [place], [place] | | | | | [address] | [address] | | | | | [phone] | [phone] | | | | | | | [...] [place] | | | | | | [address] | | | | | | | [...]
--- OUTSIDE RECORDS SUMMARY | ~2020-05-08 | XMS | Encounter Summary ---
Demographics + + + | Address | [address] | | | [place] [address] | + + + | Home Phone [...] Providers + +------+ + | Care Director Agricultural Services Name | Role | Phone | [...] | Transaction, | | | | | [place], [place] | Provider Unknown | | | | | [address] | | | | | | [phone] | | | +--------+ + + + [...] [place] | | | | | | [address] | | | | | | | [...]
--- OUTSIDE RECORDS SUMMARY | ~2020-05-08 | XMS | Encounter Summary ---
Demographics + + + | Address | [address] | | | [place] [address] | + + + | Home Phone [...] Providers + +------+ + | Care Appeals Court Associate Justice Name | Role | Phone | [...] + + | 12/21/ | Documentati | [facility] | Alfred, | Other (Ramone live | | 2020 | on | NEPHROLOGY [place] | Charlie Abdi | order sent | | | | [address] | Tire Inspector | confirmation | | | | [address] [place], [place] | | received.) | | | | [address] | | | | | | [phone] | | | +--------+ + + + [...] 2019 | Visit | | [address] [facility] | | | | | | [address] [place] | | | | | | [address] | | | | | | | | +--------+---------+ + + + documented as of this encounter Visit Diagnoses Not on filedocumented in this encounter"
--- OUTSIDE RECORDS SUMMARY | ~2020-05-08 | XMS | Encounter Summary ---
Demographics + + + | Address | [address] | | | [place] [address] | + + + | Home Phone [...] + +------+ + | Care Director Of Event Sales Name | Role | Phone | + +------+ + PCP | Unavailable | + +------+ + Encounter Details +--------+ + + + + | Date | Type | Department | Care Team | Description | +--------+ + + + + | 08/02/ | [facility] | [facility] | Nelson Lutz MD | | | 1991 | Encounter | MED CTR GENERIC OP | [address] [place] | | | | | CONV DEPT [address] | [address] [place] | | | | | [place] [place], | [address] | | | | | [place] [address] | | | | | | [phone] | | | +--------+ + + + [...] | | | | | | [address] [place] | | | | | | [address] | | | | | | | | +--------+---------+ + + + documented as of this encounter Visit Diagnoses Not on filedocumented in this encounter"
--- OUTSIDE RECORDS SUMMARY | ~2020-05-08 | XMS | Encounter Summary ---
Demographics + + + | Address | [address] | | | [place] [address] | + + + | Home Phone [...] [place] | | | | | [address] | | + + + + + Care Team Providers + +------+ + | Care Cigarette Making Machine Catcher Name | Role | Phone | [...] [address] | | | | | | [place], [place] | | | | | | [address] | | | | | | [phone] | | | +--------+ + + + [...] as of this encounter Progress Notes Interface, Pasta Maker In - 01/06/2007 5:03 AM PST CLINIC DATE: 10/31/97 [facility] - [...] his left thigh stump. Nelson Melara M.D. Museum Director, [facility] MANDY/maryjo documented in this encounter Plan of Treatment Not on filedocumented as of this encounter Visit Diagnoses Not on filedocumented in this encounter"
--- OUTSIDE RECORDS SUMMARY | ~2020-05-08 | XMS | Encounter Summary ---
Demographics + + + | Address | [address] | | | [place] [address] | + + + | Home Phone [...] Providers + +------+ + | Care Line Tester Name | Role | Phone | + +------+ + | Rahul Silva MD | PCP | | + +------+ + Encounter Details +--------+ + + + + | Date | Type | Department | Care Team | Description | +--------+ + + + + | 05/27/ | Orders Only | [facility] | Conversion | | | 2018 | | NEPRHOLOGY [place] | Transaction, | | | | | [address] | Provider Unknown | | | | | [address] [place], [place] | [phone] | | | | | [address] | (Fax) | | | | | [phone] | | | +--------+ + + + [...] | | | | | | [address] [facility] | | | | | | [address] | | | | | | | [...]
--- OUTSIDE RECORDS SUMMARY | ~2020-05-08 | XMS | Encounter Summary ---
Demographics + + + | Address | [address] | | | [place] [address] | + + + | Home Phone [...] Providers + +------+ + | Care Neonatal Intensive Care Unit Nurse Name | Role | Phone | + +------+ + | Rahul Silva MD | PCP | | + +------+ + Encounter Details +--------+ + + + + | Date | Type | Department | Care Team | Description | +--------+ + + + + | 09/07/ | Preadmit | [facility] | Brian Orosco MD | | | 2019 | Visit | CENTER [facility] | [address] | | | | | CLINIC [address] | [place], [place] | | | | | [place], [place] | [address] | | | | | [address] | [phone] | | | | | [phone] | | | +--------+ + + + [...] for the 09/07/19 encounter (Preadmit Visit) with [facility] ROOM 4 Medication Sig Instructions acyclovir [...] to check-in desk and are in the [facility] waiting room. AttachmentsThe following attachments cannot be sent through Care Everywhere.Hemodialysis Ac cess, Creating a (Georgian)Dialysis, Arteriovenous (AV) Fistula for (Georgian)documented in th is encounter Plan of Treatment +--------+---------+ + + + | Date | Type | Specialty | Care Team | Description | +--------+---------+ + + + | 06/05/ | Office | Nephrology | Farrukh Acuna MD | | | 2019 | Visit | | [address] [facility] | | | | | | [address] [place], [place] | | | | | | [id number] | | | | | | | [...] | | | | | | MDRD [facility] traceable | | | | | | equation.Testing | | | | | | performed at [facility], [address] | | | | | | [facility], | | | | | | [place] [address] | | | | + + + + + + + + | Specimen | + + | Blood | + + + + + + + | Performing | Address | City/State/Zipcode | Phone Number | | Organization | | | | + + + + + | [facility] | [address] | [place] [address] | [phone] | + + + + + CBC [...] 0.09Comment: Testing | 0.00 - 0.10 | [facility] | | | Absolute | performed at [facility], [address] | K/uL | LABORATORY | | | | [facility], | | | | | | [place] [address] | | | | + + + + + + + + | Specimen | + + | Blood | + + + + + + + | Performing | Address | City/State/Zipcode | Phone Number | | Organization | | | | + + + + + | [facility] | [address] | [place] [address] | [phone] | + + + + + ECG [...]
--- OUTSIDE RECORDS SUMMARY | ~2020-05-08 | XMS | Encounter Summary ---
Demographics + + + | Address | [address] | | | [place] [address] | + + + | Home Phone [...] Providers + +------+ + | Care Manager Diesel Name | Role | Phone | + +------+ + | Rahul Silva MD | PCP | | + +------+ + Encounter Details +--------+---------+ + + + | Date | Type | Department | Care Team | Description | +--------+---------+ + + + | 12/06/ | Office | [facility] | Farrukh Acuna MD | CKD (chronic kidney | | 2020 | Visit | NEPHROLOGY [place] | [address] [place] | disease) stage 5, | | | | [address] | [address] [place], [place] | GFR less than 15 | | | | [address] | [address] | ml/min (HCC) | | | | [place], [place] | | (Primary Dx); Anemia | | | | [address] | | of chronic kidney | | | | [phone] | | failure, stage 5 | | [...] Also: I see no need for acute SYSTEM DESIGNER. I see no need to send him [...] 10/2016 with severe pneumonia, severe ZEKE; needed SYSTEM DESIGNER for ~5 weeks b efore renal function recovery mid 12/2016. He was admitted to [facility] for 3 nights in July 2016 [...] 10/2016 with severe pneumonia, severe ZEKE; needed SYSTEM DESIGNER for ~5 weeks b efore renal function [...] Also: I see no need for acute SYSTEM DESIGNER. I see no need to send him [...] 2019 | Visit | | [address] [facility] | | | | | | [address] [place], [place] | | | | | | [address] | | | | | | | | +--------+---------+ + + + documented as of this encounter Visit Diagnoses + + | Diagnosis | + + | CKD (chronic kidney disease) stage 5, GFR less than 15 ml/min ([facility]) - Primary Chronic | | kidney disease, Stage V | + + | Anemia of chronic kidney failure, stage 5 ([facility]) | + + | Edema of lower [...]
--- OUTSIDE RECORDS SUMMARY | ~2020-05-08 | XMS | Encounter Summary ---
Demographics + + + | Address | [address] | | | [place] [address] | + + + | Home Phone [...] + +------+ + | Care Physical Therapy Assistant Name | Role | Phone | + +------+ + PCP | Unavailable | + +------+ + Encounter Details +--------+ + + + + | Date | Type | Department | Care Team | Description | +--------+ + + + + | 05/28/ | Hospital | [facility] | Elisabeth, | CORON ATHEROSCL | | 2002 - | Encounter | [facility] | MD Joshua | [facility] | | | | CLINICAL DECISION | [address] | | | 05/29/ | | [address] | [address] [place], [place] | | | 2002 | | [place], [place] | [address] | | | | | [address] | [phone] | | | | | [phone] | | | +--------+ + + + [...] 2019 | Visit | | [address] [facility] | | | | | | [address] [place] | | | | | | [address] | | | | | | | | +--------+---------+ + + + documented as of this encounter Visit Diagnoses + + | Diagnosis | + + | Coronary atherosclerosis of [place] coronary artery | + + documented in this encounter"
--- OUTSIDE RECORDS SUMMARY | ~2020-05-08 | XMS | Encounter Summary ---
Demographics + + + | Address | [address] | | | [place] [address] | + + + | Home Phone [...] Team Providers + +------+ + | Care Nut Steamer Name | Role | Phone | + [...] [address] | | | | | [place], [place] | [place], [place] | | | | | [address] | [address] | | | | | [phone] | [phone] | | | | | | | [...] | 06/05/ | Office | Nephrology | Frarukh Acuna MD | | | 2020 | Visit | | [address] [facility] | | | | | | [address] [facility] | | | | | | [address] | | | | | | | [...]
--- OUTSIDE RECORDS SUMMARY | ~2020-05-08 | XMS | Encounter Summary ---
Demographics + + + | Address | [address] | | | [place] [address] | + + + | Home Phone [...] Team Providers + +------+ + | Care Weld Technician Name | Role | Phone | [...] + + | 11/12/ | Documentati | [facility] | Simon, | Results (11/10/19) | | 2019 | on | NEPHROLOGY [place] | Trinidad [facility] | | | | | [address] [place] | Nuclear Waste Process Operator | | | | | [address] [place], [place] | | | | | | [address] | | | | | | [phone] | | | +--------+ + + + [...] [place] | | | | | | [address] | | | | | | | [...]
--- OUTSIDE RECORDS SUMMARY | ~2020-05-08 | XMS | Encounter Summary ---
Demographics + + + | Address | [address] | | | [place] [address] | + + + | Home Phone [...] Team Providers + +------+ + | Care Ferryboat Operator Cable Name | Role | Phone | + +------+ + | Rahul Silva MD | PCP | | + +------+ + Encounter Details +--------+ + + + + | Date | Type | Department | Care Team | Description | +--------+ + + + + | 09/01/ | Orders Only | [facility] | Farrukh Acuna MD | | | 2013 | | NEPHROLOGY [place] | [address] [place] | | | | | [address] [place] | [address] [place], [place] | | | | | [address] [place], [place] | [address] | | | | | [address] | | | | | | [phone] | | | +--------+ + + + [...] | | | | | | [address] [place] | | | | | | [address] | | | | | | | [...]
--- OUTSIDE RECORDS SUMMARY | ~2020-05-08 | XMS | Encounter Summary ---
Demographics + + + | Address | [address] | | | [place] [address] | + + + | Home Phone [...] Providers + +------+ + | Care Drill Operator Name | Role | Phone [...] + + | 09/24/ | Telephone | [facility] | Farrukh Acuna MD | Lab Results | | 2019 | | NEPHROLOGY [place] | [address] [place] | | | | | [address] [place] | [address] [place], [place] | | | | | [address] [place], [place] | [address] | | | | | [address] | | | | | | [phone] | | | +--------+ + + + [...] | | | | | | [address] [place] | | | | | | [address] | | | | | | | | +--------+---------+ + + + documented as of this encounter Visit Diagnoses Not on filedocumented in this encounter"
--- OUTSIDE RECORDS SUMMARY | ~2020-05-08 | XMS | Encounter Summary ---
Demographics + + + | Address | [address] | | | [place] [address] | + + + | Home Phone [...] Team Providers + +------+ + | Care Motivational Speaker Name | Role | Phone | + [...] [address] | | | | | [place], [place] | [place], [place] | | | | | [address] | [address] | | | | | [phone] | [phone] | | | | | | | [...] | | | | [address] [facility] | | | | | | [address] | | | | | | | [...]
--- OUTSIDE RECORDS SUMMARY | ~2020-05-08 | XMS | Encounter Summary ---
Demographics + + + | Address | [address] | | | [place] [address] | + + + | Home Phone [...] [place] | | | | | [address] | | + + + + + Care Team Providers + +------+ + | Care Fraud Investigator Name | Role | Phone | [...] | | | amputation | [place], | [place], [place] | | | | | stump, | [place] [address] | [address] | | | | | unspecified | Phone: | Phone: | | | | | | [phone] | [phone] | | | | | | Fax: | Fax: | | | | | | [phone] | [phone] | +--------+--------+ + + + + Encounter Details +--------+---------+ + + + | Date | Type | Department | Care Team | Description | +--------+---------+ + + + | 04/10/ | Office | [facility] | Seven Reilly MD | Low back pain; | | 2009 | Visit | Pain Center at | [address] | Herniated lumbar | | | | [facility] | [place], [place] | intervertebral disc; | | | | [address] | [address] | Stump pain (HCC) | | | | Mailcode: [facility] | [phone] | | | | | [facility] | | | | | | and Healing, | | | | | | Building | | | | | | Floor [place], [place] | | | | | | [address] | | | | | | [phone] | | | +--------+---------+ + + + [...] the trainee's note. Seven Reilly MD, DABA, [facility] [place] P DTMariano Martinez MD - 04/10/2010 12:30 PM PDT [facility] Office Visit 04/10/2010 Kavon Andujar; ; : 1940 Mr. Andujar was referred for pain management consultation by RAHUL COYNE MD [address] [place] [address], [place] [address] Reason for visit: Chief Complaint Patient presents [...] pain. He has been referred to the [facility] for consultation [...] that the most effective treatments include: medications. AIR DUCT MECHANIC Brief Pain Inventory: (ten= worst possible [...] above. As part of today's visit the [facility] new patient questionnaire [...] you expect from your visits to the [facility] ? Don't know [...] and summary of old medical records (source: [employer]), as summarized in the body of the [...] generic medication. Follow up: none scheduled at [facility]. Mariano Martinez MD Pain Fellow [facility] documented in this encounter Plan of [...]
--- OUTSIDE RECORDS SUMMARY | ~2020-05-08 | XMS | Encounter Summary ---
Demographics + + + | Address | [address] | | | [place] [address] | + + + | Home Phone [...] Team Providers + +------+ + | Care Part Maker Name | Role | Phone | + +------+ + | Rahul Silva MD | PCP | | + +------+ + Encounter Details +--------+ + + + + | Date | Type | Department | Care Team | Description | +--------+ + + + + | 11/13/ | Orders Only | [facility] | Conversion | | | 2016 | | [address] | Transaction, | | | | | [place], [place] | Provider Unknown | | | | | [address] | | | | | | [phone] | | | +--------+ + + + [...] [place] | | | | | | [address] | | | | | | | [...]
--- OUTSIDE RECORDS SUMMARY | ~2020-05-08 | XMS | Encounter Summary ---
Demographics + + + | Address | [address] | | | [place] [address] | + + + | Home Phone [...] Providers + +------+ + | Care Sports Nutritionist Name | Role | Phone | + [...] + + | 11/17/ | Telephone | [facility] | Farrukh Acuna MD | Other (Patient call | | 2019 | | NEPHROLOGY [place] | [address] [place] | ) | | | | [address] [place] | [address] [place], [place] | | | | | [address] [place], [place] | [address] | | | | | [address] | | | | | | [phone] | | | +--------+ + + + [...] [place] | | | | | | [address] | | | | | | | | +--------+---------+ + + + documented as of this encounter Visit Diagnoses Not on filedocumented in this encounter"
--- OUTSIDE RECORDS SUMMARY | ~2020-05-08 | XMS | Encounter Summary ---
Demographics + + + | Address | [address] | | | [place] [address] | + + + | Home Phone [...] Providers + +------+ + | Care Heat And Frost Insulator Name | Role | Phone | [...] + + | 08/07/ | Telephone | [facility] | Steven Tobar MD | Post-op Question | | 2016 | | OTOLARYNGOLOGY [address] | [address] [place] | (ear) | | | | [address] | [address] [place], | | | | | [place], [place] | [place] [address] | | | | | [address] | [phone] | | | | | [phone] | | | +--------+ + + + [...] [place] | | | | | | [address] | | | | | | | | +--------+---------+ + + + documented as of this encounter Visit Diagnoses Not on filedocumented in this encounter"
--- OUTSIDE RECORDS SUMMARY | ~2020-05-08 | XMS | Encounter Summary ---
Demographics + + + | Address | [address] | | | [place] [address] | + + + | Home Phone [...] Providers + +------+ + | Care Internet Sales Consultant Name | Role | Phone | + +------+ + | Rahul Silva MD | PCP | | + +------+ + Encounter Details +--------+ + + + + | Date | Type | Department | Care Team | Description | +--------+ + + + + | 01/11/ | Orders Only | [facility] | Farrukh Acuna MD | Essential | | 2020 | | NEPHROLOGY [place] | [address] [place] | hypertension | | | | [address] [place] | [address] [place], [place] | (Primary Dx); | | | | [address] [place], [place] | [address] | Persistent | | | | [address] | | proteinuria; Anemia | | | | [phone] | | of chronic kidney | | | | | | failure, stage 5 | | | | | | ([facility]); CKD (chronic | | | | | | kidney disease) | | | | | | stage 5, GFR less | | | | | | than 15 ml/min ([facility]) | +--------+ [...] [place] | | | | | | [address] | | | | | | | [...] | | | | ml/min ([facility]) | | + +------+--------+ + [...] | | ([facility]) CKD (chronic | | | | | | kidney disease) | | | | | | stage 5, GFR less | | | | | | than 15 ml/min ([facility]) | | + +------+--------+ + [...] | | ([facility]) CKD (chronic | | | [...]
--- OUTSIDE RECORDS SUMMARY | ~2020-05-08 | XMS | Encounter Summary ---
Demographics + + + | Address | [address] | | | [place] [address] | + + + | Home Phone [...] Providers + +------+ + | Care Corporate Claims Examiner Name | Role | Phone | [...] | Transaction, | | | | | [place], [place] | Provider Unknown | | | | | [address] | | | | | | [phone] | | | +--------+ + + + [...] | | | | | | [address] [place] | | | | | | [address] | | | | | | | [...]
--- OUTSIDE RECORDS SUMMARY | ~2020-05-08 | XMS | Encounter Summary ---
Demographics + + + | Address | [address] | | | [place] [address] | + + + | Home Phone [...] | + + +---------+ + | Charlotte Anudjar | ECON | Unknown | | + + +---------+ + Care Team Providers + +------+ + | Care Blending Line Attendant Name | Role | Phone | [...] | | | MARIA VICTORIA BECERRIL | [place] [address] | | | | | [place] [address] | | | | | | [phone] | | | +--------+ + + + [...] 2019 | Visit | | [address] [facility] [place] | | | | | | [address] [place] | | | | | | [address] | | | | | | | [...]
--- OUTSIDE RECORDS SUMMARY | ~2020-05-08 | XMS | Encounter Summary ---
Demographics + + + | Address | [address] | | | [place] [address] | + + + | Home Phone [...] Team Providers + +------+ + | Care Display Department Manager Name | Role | Phone | + +------+ + | Rahul Silva MD | PCP | | + +------+ + Encounter Details +--------+ + + + + | Date | Type | Department | Care Team | Description | +--------+ + + + + | 11/10/ | Orders Only | [facility] | Farrukh Acuna MD | | | 2017 | | NEPHROLOGY [place] | [address] [place] | | | | | [address] [place] | [address] [place], [place] | | | | | [address] [place], [place] | [address] | | | | | [address] | | | | | | [phone] | | | +--------+ + + + [...] [place] | | | | | | [address] | | | | | | | [...] | | | LAB | | | ITALIAN | | | | | + + [...]
--- OUTSIDE RECORDS SUMMARY | ~2020-05-08 | XMS | Encounter Summary ---
Demographics + + + | Address | [address] | | | [place] [address] | + + + | Home Phone [...] | 2019 | Procedure | [facility] | [address] | | | | | OPERATING RO[address] | [place], [place] | | | | [address] | [address] | | | | | [place], [place] | [phone] | | | | | [address] | | | | | | [phone] | | | +--------+ + + + [...] | | | | | | [address] [place] | | | | | | [address] | | | | | | | | +--------+---------+ + + + documented as of this encounter Visit Diagnoses Not on filedocumented in this encounter"
--- OUTSIDE RECORDS SUMMARY | ~2020-05-08 | XMS | Encounter Summary ---
Demographics + + + | Address | [address] | | | [place] [address] | + + + | Home Phone [...] Team Providers + +------+ + | Care Wildlife Biologist Name | Role | Phone | + +------+ + | Rahul Silva MD | PCP | | + +------+ + Encounter Details +--------+ + + + + | Date | Type | Department | Care Team | Description | +--------+ + + + + | 07/20/ | Orders Only | [facility] | Farrukh Acuna MD | Stage 4 chronic | | 2019 | | NEPHROLOGY [place] | [address] [place] | kidney disease (HCC) | | | | [address] | [address] [place], [place] | (Primary Dx); | | | | [address] | [address] | Persistent | | | | [place], [place] | | proteinuria; | | | | [address] | | Secondary | | | | [phone] | | hyperparathyroidism | | | | [...] | | | | | | [address] [place] | | | | | | [address] | | | | | | | [...]
--- OUTSIDE RECORDS SUMMARY | ~2020-05-08 | XMS | Encounter Summary ---
Demographics + + + | Address | [address] | | | [place] [address] | + + + | Home Phone [...] [place] | | | | | [address] | | + + + + + Care Team Providers + +------+ + | Care Wood Cabinetmaker Name | Role | Phone | [...] Vyas | | | | | | [address] | | | | | | [place], [place] | | | | | | [address] | | | | | | [phone] | | | +--------+ + + + [...] of this encounter Progress Notes Interface, Interior Design Professional In - 12/28/2006 5:10 AM PST [address] [address] or January 31, 1998 GRIFFIN SMILEY MD [address] [place] [address] RE:PORFIRIO ZAVALA MR#:[id number] Smiley: As [...] to hear in our conversation that the [place] [employer] does not cover Ultram in [...] in the future. Sincerely, Nelson Melara M.D. Candy Forming Machine Operator, Anesthesiology [facility] MANDY/geovanni documented in this encounter Plan of Treatment Not on filedocumented as of this encounter Visit Diagnoses Not on filedocumented in this encounter"
--- OUTSIDE RECORDS SUMMARY | ~2020-05-08 | XMS | Encounter Summary ---
Demographics + + + | Address | [address] | | | [place] [address] | + + + | Home Phone [...] Providers + +------+ + | Care Manager Media Relations Name | Role | Phone | [...] + + | 04/06/ | Telephone | [facility] | Farrukh Acuna MD | Other (IV feraheme | | 2020 | | NEPHROLOGY [place] | [address] [place] | and aranesp | | | | [address] [place] | [address] [place], [place] | question) | | | | [address] [place], [place] | [address] | | | | | [address] | | | | | | [phone] | | | +--------+ + + + [...] [place] | | | | | | [address] | | | | | | | | +--------+---------+ + + + documented as of this encounter Visit Diagnoses Not on filedocumented in this encounter"
--- OUTSIDE RECORDS SUMMARY | ~2020-05-08 | XMS | Encounter Summary ---
Demographics + + + | Address | [address] | | | [place] [address] | + + + | Home Phone [...] Team Providers + +------+ + | Care Accounting Consultant Name | Role | Phone | [...] + + | 08/26/ | Office | [facility] | Trisha Conner DNP | CKD (chronic kidney | | 2019 | Visit | VASCULAR SURGERY | [address] | disease) stage 5, | | | | [address] [place] | [place], [place] | GFR less than 15 | | | | [place], [place] | [address] | ml/min (HCC) | | | | [address] | | (Primary Dx) | | | | [phone] | Brian Orosco MD | | | | | | [address] | | | | | | [place], [place] | | | | | | [address] | | | | | | [phone] | | | | | | | [...] CV: No peripheral edema, rate regular SKIN: [place], warm, dry without rash/lesion MS: ROM not [...] | | | | | | [address] [place], [place] | | | | | | [address] | | | | | | | [...]
--- OUTSIDE RECORDS SUMMARY | ~2020-05-08 | XMS | Encounter Summary ---
Demographics + + + | Address | [address] | | | [place] [address] | + + + | Home Phone [...] Author | [facility] | | | [...] + | 11/09/ | Orders Only | [facility] | Olman Toussaint MD | | | 2016 | | [address] | [address] | | | | | [place], [place] | [place], [place] | | | | | [address] | [address] | | | | | [phone] | | | | | | | [...] | | | | | [address] [facility] | | | | | | [address] | | | | | | | [...]
--- OUTSIDE RECORDS SUMMARY | ~2020-05-08 | XMS | Encounter Summary ---
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
--- OUTSIDE RECORDS SUMMARY | ~2020-05-08 | XMS | Encounter Summary ---
Demographics + + + | Address | [address] | | | [place] [address] | + + + | Home Phone [...] Providers + +------+ + | Care Test Case Developer Name | Role | Phone | + +------+ + | Rahul Silva MD | PCP | | + +------+ + Encounter Details +--------+ + + + + | Date | Type | Department | Care Team | Description | +--------+ + + + + | 10/08/ | Orders Only | [facility] | Farrukh Acuna MD | | | 2018 | | NEPHROLOGY [place] | [address] [place] | | | | | [address] [place] | [address] [place], [place] | | | | | [address] [place], [place] | [address] | | | | | [address] | | | | | | [phone] | | | +--------+ + + + [...]
--- OUTSIDE RECORDS SUMMARY | ~2020-05-08 | XMS | Encounter Summary ---
Demographics + + + | Address | [address] | | | [place] [address] | + + + | Home Phone [...] Team Providers + +------+ + | Care Switch Operator Name | Role | Phone | [...] | | | [address]EC[address] | [place] [address] | | | | | [place] [address] | | | | | | [phone] | | | +--------+ + + + [...] | | | | | | [address] [place] | | | | | | [address] | | | | | | | [...]
--- OUTSIDE RECORDS SUMMARY | ~2020-05-08 | XMS | Encounter Summary ---
Demographics + + + | Address | [address] | | | [place] [address] | + + + | Home Phone [...] [place] | | | | | [address] | | + + + + + Care Team Providers + +------+ + | Care Road Worker Name | Role | Phone | [...] Clinic | | | | | | [facility], [address] | | | | | | [place], [place] | | | | | | [address] | | | | | | [phone] | | | +--------+ + + + [...] of this encounter Progress Notes Interface, Cloth Shader In - 01/06/2007 5:03 AM PST CLINIC DATE: 11/10/97 [facility] - FOLLOW-UP VISIT SUBJECTIVE: [...] of narcotic medication misuse. Nelson Melara M.D. Sensor Specialist, [facility] MANDY/camryn cc: Robert Carlson M.D. Professor, Vascular Surgery documented in this encounter Plan of Treatment Not on filedocumented as of this encounter Visit Diagnoses Not on filedocumented in this encounter"
--- OUTSIDE RECORDS SUMMARY | ~2020-05-08 | XMS | Encounter Summary ---
Demographics + + + | Address | [address] | | | [place] [address] | + + + | Home Phone [...] [place] | | | | | [address] | | + + + + + Care Team Providers + +------+ + | Care Senior Operations Manager Name | Role | Phone | + +------+ + PCP | Unavailable | + +------+ + Encounter Details +--------+ + + + + | Date | Type | Department | Care Team | Description | +--------+ + + + + | 02/26/ | Results | | Other, Faculty | | | 1993 | Only | | [phone] | | +--------+ + + + + [...] | | + +---------+ + + | [facility] | | | | | [facility]IOLOGY | | | | + +---------+ + + documented in this encounter Visit Diagnoses Not on filedocumented in this encounter"
--- OUTSIDE RECORDS SUMMARY | ~2020-05-08 | XMS | Encounter Summary ---
Demographics + + + | Address | [address] | | | [place] [address] | + + + | Home Phone [...] Providers + +------+ + | Care Foundry Molder Name | Role | Phone | + +------+ + | Rahul Silva MD | PCP | | + +------+ + Encounter Details +--------+ + + + + | Date | Type | Department | Care Team | Description | +--------+ + + + + | 10/03/ | Orders Only | [facility] | Collin Mirza, | | | 2015 | | NEPHROLOGY [place] | TAKER OFF [address] | | | | | [address] [place] | [address] | | | | | [address] [place], [place] | [facility] | | | | | [address] | [address] | | | | | [phone] | [phone] | | | | | | | [...] [place] | | | | | | [address] | | | | | | | [...]
--- OUTSIDE RECORDS SUMMARY | ~2020-05-08 | XMS | Encounter Summary ---
Demographics + + + | Address | [address] | | | [place] [address] | + + + | Home Phone [...] Providers + +------+ + | Care Family Educator Name | Role | Phone | [...] + + | 03/20/ | Telephone | [facility] | Sandy Capellan | Other (Clarification | | 2019 | | NEPRHOLOGY PAIG[place] | BAN Valadez | on lab orders) | | | | [address] | | | | | | [address] [facility] [place] | | | | | | [address] | | | | | | [phone] | | | +--------+ + + + [...] [place] | | | | | | [address] | | | | | | | | +--------+---------+ + + + documented as of this encounter Visit Diagnoses Not on filedocumented in this encounter"
--- OUTSIDE RECORDS SUMMARY | ~2020-05-08 | XMS | Encounter Summary ---
Demographics + + + | Address | [address] | | | [place] [address] | + + + | Home Phone [...] Providers + +------+ + | Care Project Inspector Name | Role | Phone | + +------+ + | Rahul Silva MD | PCP | | + +------+ + Encounter Details +--------+ + + + + | Date | Type | Department | Care Team | Description | +--------+ + + + + | 02/15/ | Orders Only | [facility] | Conversion | | | 2019 | | NEPHROLOGY [place] | Transaction, | | | | | [address] | Provider Unknown | | | | | [address] [place] | | | | | | [address] | (Fax) | | | | | [phone] | | | +--------+ + + + [...] [facility] | | | | | | [address] | | | | | | | [...]
--- OUTSIDE RECORDS SUMMARY | ~2020-05-08 | XMS | Encounter Summary ---
Demographics + + + | Address | [address] | | | [place] [address] | + + + | Home Phone [...] Team Providers + +------+ + | Care Gmat Instructor Name | Role | Phone | + +------+ + | Mehrdad Bergman | PCP | | + +------+ + Encounter Details +--------+ + + + + | Date | Type | Department | Care Team | Description | +--------+ + + + + | 03/27/ | Virtual | [facility] | Farrukh Acuna MD | CKD (chronic kidney | | 2019 | Office | NEPHROLOGY [place] | [address] [place] | disease) stage 5, | | | Visit | [address] | [address] [place], [place] | GFR less than 15 | | | | [address] | [address] | ml/min (HCC) | | | | [place], [place] | | (Primary Dx); Anemia | | | | [address] | | of chronic kidney | | | | [phone] | | failure, stage 5 | | [...] | | | ([facility]); Secondary | | | | | | hyperparathyroidism | | | | | | ([facility]); Essential | | | | | [...] done before he comes back in [facility]. documented in this encounter Progress Notes Farrukh [...] 10/2016 with severe pneumonia, severe ZEKE; needed PROFESSOR OF MUSICOLOGY for ~5 weeks b efore renal function recovery mid 12/2016. He was admitted to [facility] for 3 nights in July [...] 10/2016 with severe pneumonia, severe ZEKE; needed PROFESSOR OF MUSICOLOGY for ~5 weeks b efore renal function [...] Also: I see no need for acute PROFESSOR OF MUSICOLOGY. I see no need to send him [...] yours, Farrukh Acuna MD [facility] This exam was initially conducted via a secure 256-bit AES encrypted bidirectional video se ssion. You have chosen to receive care through the use of telemedicine. Telemedicine enables [facility] care providers at different locations to [...] | | | | | | [address] [place], [place] | | | | | | [address] | | | | | | | [facility]) | + + | Edema of lower [...]
--- OUTSIDE RECORDS SUMMARY | ~2020-05-08 | XMS | Encounter Summary ---
Demographics + + + | Address | [address] | | | [place] [address] | + + + | Home Phone [...] Team Providers + +------+ + | Care Garde Manager Name | Role | Phone | [...] | | NEPHROLOGY [place] | [address] [address] [place] | | | | | [address] | [address] [place], [place] | | | | | [place] | [address] | | | | | [address] | | | | | | [phone] | | | +--------+ + + + [...] | | | | | | [address] [place], [place] | | | | | | [address] | | | | | | | | +--------+---------+ + + + documented as of this encounter Visit Diagnoses Not on filedocumented in this encounter"
--- OUTSIDE RECORDS SUMMARY | ~2020-05-08 | XMS | Encounter Summary ---
Demographics + + + | Address | [address] | | | [place] [address] | + + + | Home Phone [...] Team Providers + +------+ + | Care Modeler Name | Role | Phone | + +------+ + | Rahul Silva MD | PCP | | + +------+ + Encounter Details +--------+ + + + + | Date | Type | Department | Care Team | Description | +--------+ + + + + | 07/20/ | Orders Only | [facility] | Farrukh Acuna MD | Anemia of chronic | | 2019 | | NEPHROLOGY [place] | [address] [place] | renal failure, stage | | | | [address] [place] | [address] [place], [place] | 4 (severe) (HCC) | | | | [address] [place], [place] | [address] | (Primary Dx); Stage | | | | [address] | | 4 chronic kidney | | | | [phone] | | disease (HCC); | | | [...] 2020 | Visit | | [address] [facility] | | | | | | [facility] | | | | | | [address] | | | | | | | [...]
--- OUTSIDE RECORDS SUMMARY | ~2020-05-08 | XMS | Encounter Summary ---
Demographics + + + | Address | [address] | | | [place] [address] | + + + | Home Phone [...] Team Providers + +------+ + | Care Accountant Supervisor Name | Role | Phone | [...] + | 03/23/ | Documentati | [facility] | Simon, | Results (03/21/20) | | 2020 | on | NEPHROLOGY [place] | [facility] | | | | | [address] | Certified Master Safecracker | | | | | [address] | | | | | | [place], [place] | | | | | | [address] | | | | | | [phone] | | | +--------+ + + + [...] [place] | | | | | | [address] | | | | | | | [...]
--- OUTSIDE RECORDS SUMMARY | ~2020-05-08 | XMS | Encounter Summary ---
Demographics + + + | Address | [address] | | | [place] [address] | + + + | Home Phone [...] [place] | | | | | [address] | | + + + + + Care Team Providers + +------+ + | Care Towel Distributor Name | Role | Phone | [...] | | | | | | [address] | | | | | | [place], [place] | | | | | | [address] | | | | | | [phone] | | | +--------+ + + + [...] as of this encounter Progress Notes Interface, Chief Building Inspector In - 02/17/2007 3:02 AM PDT [address] [address] or August 05, 1996 URBIA VALLES MD [address] [facility] [address] RE:PORFIRIO ZAVALA MR#:[id number] Valles: Mr. Porfirio Zavala returned to the [facility] today for a followup visit. 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 Mr. Zavala has failed numerous femoral nerve blocks, sciatic nerve blocks, and spinal cord blocks, and was at one time enrolled in the [facility] Pain [facility]. Mr. Zavala's pain [...] dictating for: Alina Moise M.D. Professor and Supervisor Mails, Division of Neurosurgery MARYANA/sajan cc: Seven Khan, Ph.D. Clinical Psychologist-Neuropsychologist documented in this encounter Plan of Treatment Not on filedocumented as of this encounter Visit Diagnoses Not on filedocumented in this encounter"
--- OUTSIDE RECORDS SUMMARY | ~2020-05-08 | XMS | Encounter Summary ---
Demographics + + + | Address | [address] | | | [place] [address] | + + + | Home Phone [...] Team Providers + +------+ + | Care Exhibit Preparator Name | Role | Phone | + [...] [address] | | | | | [place], [place] | [place], [place] | | | | | [address] | [address] | | | | | [phone] | [phone] | | | | | | | [...] HOSPITAL[facility] | | | | | | [address] | | | | | | | [...]
--- OUTSIDE RECORDS SUMMARY | ~2020-05-08 | XMS | Encounter Summary ---
Demographics + + + | Address | [address] | | | [place] [address] | + + + | Home Phone [...] Providers + +------+ + | Care Transformer Inspector Name | Role | Phone | + +------+ + | Mehrdad Bergman | PCP | | + +------+ + Encounter Details +--------+ + + + + | Date | Type | Department | Care Team | Description | +--------+ + + + + | 02/16/ | Imaging | [facility] | Provider, | | | 2020 | Exam | [facility] | MD Jonathan [address] | | | | | IMAGING [address] | [address] | | | | | [address] | [place] [address] | | | | | [place] [address] | | | | | | [phone] | | | +--------+ + + + [...] [place] | | | | | | [address] | | | | | | | [...]
--- OUTSIDE RECORDS SUMMARY | ~2020-05-08 | XMS | Encounter Summary ---
Demographics + + + | Address | [address] | | | [place] [address] | + + + | Home Phone [...] Author + + + | Author | [facility] | + + + | Organization | [facility] | + + + | Address | Unknown | + + + | Phone | Unavailable | + + + Support + + + + + | Name | Relationship | Address | Phone | + + + + + | Darci Andujar | VALERIE | [place] | | | | | [address] | | + + + + + Care Team Providers + +------+ + | Care Zoo Veterinarian Name | Role | Phone | + [...] | | | | [facility], [address] [place] [address] | | | | | | [place], [place] | | | | | | [address] | | | | | | [phone] | | | +--------+ + + + [...] as of this encounter Discharge Summaries Interface, Admissions Representative In - 12/22/2006 3:12 AM PST [address] [address] [facility] MEDICAL SUMMARY OF HOSPITALIZATION Med Rec No.: [id number] Admission Date: 04/06/98 Name: Kavon Andujar Discharge Date: 04/08/98 STAFF PHYSICIAN: Galo Arora M.D. Roper Operator, Division of Plastic & Reconstructive Surgery [...] M.D. Resident, Plastic Surgery Galo Arora M.D. Roper Operator, Division of Plastic & Reconstructive Surgery QIANA/charo P cc: GRIFFIN ASHER MD [address] [facility] [place] [address] documented in this encounter Plan of Treatment Not on filedocumented as of this encounter Visit Diagnoses Not on filedocumented in this encounter"
--- OUTSIDE RECORDS SUMMARY | ~2020-05-08 | XMS | Encounter Summary ---
Demographics + + + | Address | [address] | | | [place] [address] | + + + | Home Phone [...] + +------+ + | Care Manager Of Patient Name | Role | Phone | + +------+ + | Rahul Silva MD | PCP | | + +------+ + Encounter Details +--------+ + + + + | Date | Type | Department | Care Team | Description | +--------+ + + + + | 12/16/ | Orders Only | [facility] | Conversion | | | 2016 | | NEPHROLOGY [place] | Transaction, | | | | | [address] | Provider Unknown | | | | | [address] [place] | | | | | | [address] | (Fax) | | | | | [phone] | | | +--------+ + + + [...] | | | | | | [facility] | | | | | | [address] [...]
--- OUTSIDE RECORDS SUMMARY | ~2020-05-08 | XMS | Encounter Summary ---
Demographics + + + | Address | [address] | | | [place] [address] | + + + | Home Phone [...] Team Providers + +------+ + | Care Cyber Security Analyst Name | Role | Phone | + +------+ + | Rahul Silva MD | PCP | | + +------+ + Encounter Details +--------+ + + + + | Date | Type | Department | Care Team | Description | +--------+ + + + + | 03/01/ | Orders Only | [facility] | Conversion | | | 2019 | | NEPHROLOGY [place] | Transaction, | | | | | [address] | Provider Unknown | | | | | [address] [place] | | | | | | [address] | (Fax) | | | | | [phone] | | | +--------+ + + + [...] CENT[facility] | | | | | | [address] [...] - 1.030 | EXTERNAL | | | [place], | | | LAB | | | [...]
--- OUTSIDE RECORDS SUMMARY | ~2020-05-08 | XMS | Encounter Summary ---
Demographics + + + | Address | [address] | | | [place] [address] | + + + | Home Phone [...] Providers + +------+ + | Care Salon Receptionist Name | Role | Phone | [...] | | | hip | [address] | | | | | | fracture, | [place] | | | | | | initial | [place], [place] | | | | | | encounter | [address] | | | | | | ([facility]) | Phone: | | | | | | Status post | [phone] | | | | | | above knee | Fax: | | | | | | amputation | [phone] | | | | | | of [...] + + | 08/03/ | Hospital | [facility] | Jose Andrade | Laceration of left | | 2016 - | Encounter | MED CTR SURGICAL | MD Mehrdad [address] | ear, initial | | | | [address] [place] | [address] [place] | encounter (Primary | | 08/05/ | | [place] [address] | [place] [address] | Dx); Closed left hip | | 2016 | | [phone] | [phone] | fracture, initial | | | | | | encounter ([facility]); | | | | | Guillermo Atkins, | Fall, initial | | | | | DO [address] | encounter; Acute | | | | | [address] [place], | pain; Hyperkalemia; | | | | | [place] [address] | CKD (chronic kidney | | | | | [phone] | disease), | | | | | [...] | | | | | | encounter ([facility]); | | | | | | PAOLO on CPAP; Status | | | | | | post fall; Status | | | | | | 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 | | | | | | lower extremity | | | | | | ([facility]); Phantom limb | | | | | | pain ([facility]) | +--------+ + [...] Bolivar MD - 08/05/2016 1:07 PM PDT [facility] DISCHARGE SUMMARY Pt. Name/Age/: Kavon Andujar [...] mg by mouth nightly. aka: LIPITOR Cholecalciferol 97985 units Caps Take 50,000 Units by mouth [...] in 7-10 days Contact information: [address] [place] [id number] PENDING RESULTS: HOSPITAL COURSE: Please refer to [...] signed by: Petey Bolivar MD, 08/05/2016 13:07 [facility] Portions of this chart may have been created with [employer] voice recognition software. Occasi onal wrong-word or sound-alike substitutions may have occurred due to the inherent vanegas itations of voice recognition software. Please read the chart carefully and recognize, using context, where these substitutions have occurred documented in this encounter Discharge Instructions Instructions Maritza Devries RN - 08/05/2016Please call Dr. Tobar at [phone] for an y questions or concerns regarding [...] 0 | | | | (VITAMIN D-3) [address] | mouth Every 3 | | | [...] documented as of this encounter Progress Notes Soun Michel MD - 08/04/2016 11:33 AM PDTFormatting of this note might be differ ent from the original. [facility] Hospitalist Progress Note Kavon Andujar is [...] Clear Clear PH UA 5.0 5.0-8.0 Specific [place] 1.015 1.001-1.030 PROTEIN UA 100 mg/dL (A) [...] as outlined above. Sonu Michel 08/04/2016 11:33 [facility] Yuriy Farrell RRT - 08/04/2016 8:42 [...] Visit | | [address] [facility] | | | | | | [address] [place], [place] | | | | | | [address] | | | | | | | [...] until | | | | | encounter ([facility]) | 08/04/2016 | | | | | Status post above | | | | | | knee amputation of | | | | | | left lower extremity | | | | | | ([facility]) | | + +------+--------+ + + | DME: Walker | DME | Routin | Closed left hip | Ordered: 08/05/2016 | | | | e | fracture, initial | | | | | | encounter ([facility]) | | | | | | Status post above | | | | | | knee amputation of | | | | | | left lower extremity | | | | | | ([facility]) | | + [...] | | | POC | | | [place] | | | | | | MEDICAL [...] + | [address] | [address] | [place] | [phone] | | [facility] | | [address] | | | - LABORATORY | | [...] (H) | 7 - 18 mg/dL | [facility] | | | | | | [facility] | | | | | | MEDICAL | | | | | | CENTER - | | | | | | LABORATORY | | + + + + + + | Creatinine | 1.80 (H) | 0.60 - 1.30 | [facility] | | | | | mg/dL | [facility] | | | | | | MEDICAL | | | | | | CENTER - | | | | | | LABORATORY | | + + + + + + | eGFR if not | 37 (L)Comment: | >=60 | [facility] | | | | GLOMERULAR FILTRATION | mL/min/1.73m2 | [facility] | | | [place] | RATE,ESTIMATED | | MEDICAL | | | | mL/min/1.50i8Xowa than | | CENTER - | | [...] [address] | [place] | [phone] | | [facility] | | [address] | | | - LABORATORY | | [...] [address] | [place] | [phone] | | [facility] | | [address] | | | - LABORATORY | | [...] [address] | [place] | [phone] | | [facility] | | [address] | | | - LABORATORY | | [...] + | [address] | [address] | [place] | [phone] | | [facility] | | [address] | | | - LABORATORY | | [...] + | [address] | [address] | [place] | [phone] | | [facility] | | [address] | | | - LABORATORY | | [...] [address] | [place] | [phone] | | [facility] | | [address] | | | - LABORATORY | | [...] | | POC | | | [facility] | | | | | | MEDICAL [...] + | [facility] | [address] | [place] | [phone] | | [facility] | | [address] | | | - LABORATORY | | [...] [address] | [place] | [phone] | | [facility] | | [address] | | | - LABORATORY | | [...] + | [address] | [address] | [place] | [phone] | | [facility] | | [address] | | | - LABORATORY | | [...] [address] | [place] | [phone] | | [facility] | | [address] | | | - LABORATORY | | [...] mL/min/1.73m2 | [facility] | | | [place] | RATE,ESTIMATED | | MEDICAL | | | | mL/min/1.05f7Uilb than | | CENTER - | | [...] [address] | [place] | [phone] | | [facility] | | [address] | | | - LABORATORY | | [...] - 1.030 | [facility] | | | [place], | | | [facility] | | [...] [address] | [place] | [phone] | | [facility] | | [address] | | | - LABORATORY | | [...] | | | | AYAH RON MD ([id number]) | | | | | | on [...] [address] | [place] | [phone] | | [facility] | | [address] | | | - LABORATORY | | [...] [address] | [place] | [phone] | | [facility] | | [address] | | | - LABORATORY | | [...] [address] | [place] | [phone] | | [facility] | | [address] | | | - LABORATORY | | [...] [address] | [place] | [phone] | | [facility] | | [address] | | | - LABORATORY | | [...] [address] | [place] | [phone] | | [facility] | | [address] | | | - LABORATORY | | [...] mL/min/1.73m2 | [facility] | | | [place] | RATE,ESTIMATED | | MEDICAL | | | | mL/min/1.21n7Sjhl than | | CENTER - | | [...] [address] | [place] | [phone] | | [facility] | | [address] | | | - LABORATORY | | [...] | | | | | | | 1089-1654 Use NIGHT DOSE for | | | | | | | doses scheduled: HS, 3AM, | | | | | | | Nighttime 3465-1621, | | | | | | + [...] | +---+---+ + +-------+ +---------+---+ + | gorpxsi-kfeiylemmi-abiegcmad | Given | 08/03/20 | 0.5 mLs [...]
--- OUTSIDE RECORDS SUMMARY | ~2020-05-08 | XMS | Encounter Summary ---
Demographics + + + | Address | [address] | | | [place] [address] | + + + | Home Phone [...] Providers + +------+ + | Care Cook Italian Style Food Name | Role | Phone | + [...] [address] | | | | | [place], [place] | [place], [place] | | | | | [address] | [address] | | | | | [phone] | [phone] | | | | | | | [...] [facility]OS[facility] | | | | | | [address] | | | | | | | [...]
--- OUTSIDE RECORDS SUMMARY | ~2020-05-08 | XMS | Encounter Summary ---
Demographics + + + | Address | [address] | | | [place] [address] | + + + | Home Phone [...] Team Providers + +------+ + | Care Belt Picker Name | Role | Phone | [...] + + | 02/27/ | Documentati | [facility] | Simon, | Results (bmp | | 2019 | on | NEPHROLOGY [place] | Charlie Abdi | 02/24/20) | | | | [address] | Mini Shifter | | | | | [address] | | | | | | [place], [place] | | | | | | [address] | | | | | | [phone] | | | +--------+ + + + [...] [place] | | | | | | [address] | | | | | | | [...]
--- OUTSIDE RECORDS SUMMARY | ~2020-05-08 | XMS | Encounter Summary ---
Demographics + + + | Address | [address] | | | [place] [address] | + + + | Home Phone [...] Team Providers + +------+ + | Care Patternmaker All Around Name | Role | Phone | + [...] + + | 09/03/ | Telephone | [facility] | Simon, | Lab Results | | 2019 | | NEPHROLOGY [place] | [facility] | | | | | [address] | Maintenance Shop Technician | | | | | [address] [place], [place] | | | | | | [address] | | | | | | [phone] | | | +--------+ + + + [...] | | | | | | [address] [place] | | | | | | [address] | | | | | | | | +--------+---------+ + + + documented as of this encounter Visit Diagnoses Not on filedocumented in this encounter"
--- OUTSIDE RECORDS SUMMARY | ~2020-05-08 | XMS | Encounter Summary ---
Demographics + + + | Address | [address] | | | [place] [address] | + + + | Home Phone [...] Providers + +------+ + | Care Athletic Scout Name | Role | Phone | + +------+ + | Rahul Silva MD | PCP | | + +------+ + Encounter Details +--------+ + + + + | Date | Type | Department | Care Team | Description | +--------+ + + + + | 09/07/ | Preadmit | [facility] | Brian Orosco MD | | | 2019 | Visit | CENTER PREADMIT | [address] | | | | | CLINIC [address] | [place], [place] | | | | | [place], [place] | [address] | | | | | [address] | [phone] | | | | | [phone] | | | +--------+ + + + [...] for the 09/07/19 encounter (Preadmit Visit) with [facility] ROOM 4 Medication Sig Instructions [...] to check-in desk and are in the [facility] waiting room. AttachmentsThe following attachments cannot be sent through Care Everywhere.Hemodialysis Ac cess, Creating a (Rwandan)Dialysis, Arteriovenous (AV) Fistula for (Rwandan)documented in th is encounter Plan of Treatment +--------+---------+ + + + | Date | Type | Specialty | Care Team | Description | +--------+---------+ + + + | 06/05/ | Office | Nephrology | Farrukh Acuna MD | | | 2019 | Visit | | [address] [facility] | | | | | | [address] [place], [place] | | | | | | [address] | | | | | | | [...] | | | | | | [facility]D [facility] traceable | | | | | | equation.Testing | | | | | | performed at [facility], [address] | | | | | | [facility], | | | | | | [place] [address] | | | | + + + + + + + + | Specimen | + + | Blood | + + + + + + + | Performing | Address | City/State/Zipcode | Phone Number | | Organization | | | | + + + + + | [facility] | [address] | [place] [address] | [phone] | + + + + + CBC [...] Testing | 0.00 - 0.10 | [facility] | | | Absolute | performed at [facility], [address] | K/uL | LABORATORY | | | | [facility], | | | | | | [place] [address] | | | | + + + + + + + + | Specimen | + + | Blood | + + + + + + + | Performing | Address | City/State/Zipcode | Phone Number | | Organization | | | | + + + + + | [facility] | [address] | [place] [address] | [phone] | + + + + + ECG [...]
--- OUTSIDE RECORDS SUMMARY | ~2020-05-08 | XMS | Encounter Summary ---
Demographics + + + | Address | [address] | | | [place] [address] | + + + | Home Phone [...] Providers + +------+ + | Care Inspector Insulation Name | Role | Phone | + [...] | | | [address] | [place] [address] | | | | | [place] [address] | | | | | | [phone] | | | +--------+ + + + [...] | | | | | | [address] [place] | | | | | | [address] | | | | | | | [...]
--- OUTSIDE RECORDS SUMMARY | ~2020-05-08 | XMS | Encounter Summary ---
Demographics + + + | Address | [address] | | | [place] [address] | + + + | Home Phone [...] +------+ + | Care Teacher Of The Hearing Impaired Name | Role | Phone | [...] Other | | 2019 | | NEPRHOLOGY ETHEL | [address] | | | | | [address] | [address] [place], [place] | | | | | [address] [place], [place] | [address] | | | | | [address] | | | | | | [phone] | | | +--------+ + + + [...] | | | | | | [address] [place], [place] | | | | | | [address] | | | | | | | | +--------+---------+ + + + documented as of this encounter Visit Diagnoses Not on filedocumented in this encounter"
--- OUTSIDE RECORDS SUMMARY | ~2020-05-08 | XMS | Encounter Summary ---
Demographics + + + | Address | [address] | | | [place] [address] | + + + | Home Phone [...] Providers + +------+ + | Care Outside Sales Manager Name | Role | Phone [...] + + | 02/27/ | Documentati | [facility] | Simon, | Results (bmp | | 2019 | on | NEPHROLOGY [place] | Charlie Abdi | 02/24/20) | | | | [address] | Legal Director | | | | | [address] | | | | | | [place], [place] | | | | | | [address] | | | | | | [phone] | | | +--------+ + + + [...] [place] | | | | | | [address] | | | | | | | [...]
--- OUTSIDE RECORDS SUMMARY | ~2020-05-08 | XMS | Encounter Summary ---
Demographics + + + | Address | [address] | | | [place] [address] | + + + | Home Phone [...] Providers + +------+ + | Care Co Founder Name | Role | Phone | + +------+ + | Rahul Silva MD | PCP | | + +------+ + Encounter Details +--------+---------+ + + + | Date | Type | Department | Care Team | Description | +--------+---------+ + + + | 01/10/ | Office | [facility] | Farrukh Acuna MD | CKD (chronic kidney | | 2020 | Visit | NEPHROLOGY [place] | [address] [place] | disease) stage 5, | | | | [address] | [address] [place], [place] | GFR less than 15 | | | | [address] | [address] | ml/min (HCC) | | | | [place], [place] | | (Primary Dx); Anemia | | | | [address] | | of chronic kidney | | | | [phone] | | failure, stage 5 | | [...] 10/2016 with severe pneumonia, severe ZEKE; needed MOTION PICTURES CARTOONIST for ~5 weeks b efore renal function recovery mid 12/2016. He was admitted to [facility] for 3 nights in [...] 10/2016 with severe pneumonia, severe ZEKE; needed MOTION PICTURES CARTOONIST for ~5 weeks b efore renal function [...] Also: I see no need for acute MOTION PICTURES CARTOONIST. I see no need to send him [...] 2019 | Visit | | [address] [facility] | | | | | | [address] [place], [place] | | | | | | [address] | | | | | | | [...]
--- OUTSIDE RECORDS SUMMARY | ~2020-05-08 | XMS | Encounter Summary ---
Demographics + + + | Address | [address] | | | [place] [address] | + + + | Home Phone [...] [place] | | | | | | [address] | (Fax) | | | | | [phone] | | | +--------+ + + + [...] [place] | | | | | | [address] | | | | | | | [...]
--- OUTSIDE RECORDS SUMMARY | ~2020-05-08 | XMS | Encounter Summary ---
Demographics + + + | Address | [address] | | | [place] [address] | + + + | Home Phone [...] Team Providers + +------+ + | Care Burnishing Machine Operator Name | Role | Phone | + +------+ + | Rahul Silva MD | PCP | | + +------+ + Encounter Details +--------+ + + + + | Date | Type | Department | Care Team | Description | +--------+ + + + + | 01/26/ | Orders Only | [facility] | Conversion | | | 2014 | | NEPRHOLOGY [place] | Transaction, | | | | | [address] | Provider Unknown | | | | | [address] [place], [place] | | | | | | [address] | (Fax) | | | | | [phone] | | | +--------+ + + + [...] [place] | | | | | | [address] | | | | | | | [...]
--- OUTSIDE RECORDS SUMMARY | ~2020-05-08 | XMS | Encounter Summary ---
Demographics + + + | Address | [address] | | | [place] [address] | + + + | Home Phone [...] Team Providers + +------+ + | Care Tufter Operator Name | Role | Phone | [...] [address] | | | | | [place], [place] | [place], [place] | | | | | [address] | [address] | | | | | [phone] | [phone] | | | | | | | [...] HOSPITAL[facility]HA | | | | | | [address] | | | | | | | [...]
--- OUTSIDE RECORDS SUMMARY | ~2020-05-08 | XMS | Encounter Summary ---
Demographics + + + | Address | [address] | | | [place] [address] | + + + | Home Phone [...] Providers + +------+ + | Care Mailroom Coordinator Name | Role | Phone | [...] + + | 08/07/ | Telephone | [facility] | Steven Tobar MD | Post-op Question | | 2016 | | OTOLARYNGOLOGY [address] | [address] [place] | (ear) | | | | [address] | [address] [place], | | | | | [place], [place] | [place] [address] | | | | | [address] | [phone] | | | | | [phone] | | | +--------+ + + + [...] [place] | | | | | | [address] | | | | | | | | +--------+---------+ + + + documented as of this encounter Visit Diagnoses Not on filedocumented in this encounter"
--- OUTSIDE RECORDS SUMMARY | ~2020-05-08 | XMS | Encounter Summary ---
Demographics + + + | Address | [address] | | | [place] [address] | + + + | Home Phone [...] Team Providers + +------+ + | Care Dietitian Assistant Name | Role | Phone | [...] | | [address] | [place] [address] | | | | | [place] [address] | | | | | | [phone] | | | +--------+ + + + [...] | | | | | | [address] [place] | | | | | | [address] [...]
--- OUTSIDE RECORDS SUMMARY | ~2020-05-08 | XMS | Encounter Summary ---
Demographics + + + | Address | [address] | | | [place] [address] | + + + | Home Phone [...] Providers + +------+ + | Care Commercial Or Institutional Cleaner Name | Role | Phone | + +------+ + | Rhaul Silva MD | PCP | | + +------+ + Encounter Details +--------+ + + + + | Date | Type | Department | Care Team | Description | +--------+ + + + + | 10/03/ | Orders Only | [facility] | Collin Mirza, | | | 2015 | | NEPHROLOGY [place] | INTERNAL CONTROLS CONSULTANT [address] | | | | | [address] [place] | [address] | | | | | [address] [place], [place] | [facility] | | | | | [address] | [address] | | | | | [phone] | [phone] | | | | | | | [...] [place] | | | | | | [address] | | | | | | | [...]
--- OUTSIDE RECORDS SUMMARY | ~2020-05-08 | XMS | Encounter Summary ---
Demographics + + + | Address | [address] | | | [place] [address] | + + + | Home Phone [...] Providers + +------+ + | Care Public Employment Mediator Name | Role | Phone | [...] + + | 09/24/ | Telephone | [facility] | Farrukh Acuna MD | Lab Results | | 2019 | | NEPHROLOGY [place] | [address] [place] | | | | | [address] [place] | [address] [place], [place] | | | | | [address] [place], [place] | [address] | | | | | [address] | | | | | | [phone] | | | +--------+ + + + [...] | | | | | | 160 [place] | | | | | | [address] | | | | | | | | +--------+---------+ + + + documented as of this encounter Visit Diagnoses Not on filedocumented in this encounter"
--- OUTSIDE RECORDS SUMMARY | ~2020-05-08 | XMS | Encounter Summary ---
Demographics + + + | Address | [address] | | | [place] [address] | + + + | Home Phone [...] Team Providers + +------+ + | Care Cut Off Saw Set Up Operator Name | Role | Phone | + +------+ + | Rahul Silav MD | PCP | | + +------+ + Encounter Details +--------+ + + + + | Date | Type | Department | Care Team | Description | +--------+ + + + + | 11/27/ | Orders Only | [facility] | Conversion | | | 2017 | | NEPHROLOGY [place] | Transaction, | | | | | [address] [place] | Provider Unknown | | | | | [address] [place] | | | | | | [address] | (Fax) | | | | | [phone] | | | +--------+ + + + [...] HOSPITAL[facility] | | | | | | [address] | | | | | | | [...]
--- OUTSIDE RECORDS SUMMARY | ~2020-05-08 | XMS | Encounter Summary ---
Demographics + + + | Address | [address] | | | [place] [address] | + + + | Home Phone [...] Providers + +------+ + | Care Surgical Aide Name | Role | Phone | [...] | | | MARIA VICTORIA [address]ECERRIL | [place] [address] | | | | | [place] [address] | | | | | | [phone] | | | +--------+ + + + [...] [place] | | | | | | [address] | | | | | | | [...]
--- OUTSIDE RECORDS SUMMARY | ~2020-05-08 | XMS | Encounter Summary ---
Demographics + + + | Address | [address] | | | [place] [address] | + + + | Home Phone [...] Team Providers + +------+ + | Care Rivet Sticker Name | Role | Phone | + +------+ + | Rahul Silva MD | PCP | | + +------+ + Encounter Details +--------+ + + + + | Date | Type | Department | Care Team | Description | +--------+ + + + + | 08/19/ | Orders Only | [facility] | Conversion | | | 2017 | | NEPHROLOGY [place] | Transaction, | | | | | [address] | Provider Unknown | | | | | [address] [place] | | | | | | [address] | (Fax) | | | | | [phone] | | | +--------+ + + + [...] SYSTEMRADHA | | | | | | [address] | | | | | | | [...]
--- OUTSIDE RECORDS SUMMARY | ~2020-05-08 | XMS | Encounter Summary ---
Demographics + + + | Address | [address] | | | [place] [address] | + + + | Home Phone [...] Providers + +------+ + | Care Product Safety Engineer Name | Role | Phone | + +------+ + | Rahul Silva MD | PCP | | + +------+ + Encounter Details +--------+ + + + + | Date | Type | Department | Care Team | Description | +--------+ + + + + | 02/24/ | Orders Only | [facility] | Conversion | | | 2016 | | NEPHROLOGY [place] | Transaction, | | | | | [address] | Provider Unknown | | | | | [address] [place] | | | | | | [address] | (Fax) | | | | | [phone] | | | +--------+ + + + [...] HOSPITAL[facility] | | | | | | [address] | | | | | | | [...] - 1.030 | EXTERNAL | | | [place], | | | LAB | | | [...]
--- OUTSIDE RECORDS SUMMARY | ~2020-05-08 | XMS | Encounter Summary ---
Demographics + + + | Address | [address] | | | [place] [address] | + + + | Home Phone [...] Team Providers + +------+ + | Care Ems Instructor Name | Role | Phone | [...] | | | MARIA VICTORIA BECERRIL | [place] [address] | | | | | [place] [address] | | | | | | [phone] | | | +--------+ + + + [...] [place] | | | | | | [address] | | | | | | | [...]
--- OUTSIDE RECORDS SUMMARY | ~2020-05-08 | XMS | Encounter Summary ---
Demographics + + + | Address | [address] | | | [place] [address] | + + + | Home Phone [...] [place] | | | | | [address] | | + + + + + Care Team Providers + +------+ + | Care Java Web Application Developer Name | Role | Phone [...] [address] | | | | | | [place], [place] | | | | | | [address] | | | | | | [phone] | | | +--------+ + + + [...] as of this encounter Progress Notes Interface, Repairer Controller Tester In - 01/22/2007 3:04 AM PST CLINIC DATE: 06/07/97 NEUROLOGY CLINIC HISTORY OF PRESENT ILLNESS: Mr. Andujar is a 56 year-old male who is being evaluated in the Clinic for problems with balance and tremulousness of both upper extremities. He has been referred to this Clinic by Dr. Valles from [place], [place], and has also previously undergone extensive evaluations in the Neurosurgical Clinic and at Vascular Surgery at [facility]. His most recent hospitalization to [facility] was December 28, 1996, when [...] evaluation in the Pain Management Clinic at [facility] and previous trials of Neurontin and mexiletine hydrochloride apparently appears to have been unsuccessful. Shortly following his December hospitalization at [facility], Mr. Andujar apparently became comatose in January from an accidental overdose of Darvon for which he was admitted to [facility] in [place], [place]. The details pertaining to this hospitalization are currently not available but as per Mr. Andujar, he was in a coma for a six day period and upon recovery noted tremulousness of both upper extremities, worse on his left than on his right. Prior to his hospitalization at [facility] and following his discharge from [facility], he apparently was ambulating with crutches since the stump pain precluded the use of his left lower extremity prosthesis. Since his discharge from [facility], however, he has been experiencing increasing problems with balance and apparently has fallen on several occasions. The head CT-scan that was done at [facility], dated February 07, 1997, reveals a low attenuation area in the left anterior basal ganglia felt to represent a small lacunar infarct, with no other significant abnormality. Mr. Andujar states that during the course of his hospitalization at [facility] he apparently fell on three occasions sustaining occipital head trauma but did not undergo subsequent brain imaging studies. His stay at [facility] lasted two weeks. By his report, he [...] not incapacitating. More recently while in Dr. aVlles's office, he apparently fell while trying to [...] Mr. 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 He currently smokes one-half qffy-pfx-lpt since age 23. Denies current alcohol use [...] in turn led to his hospitalization at [facility] in January 1997 for coma at which [...] procedures for pain relief. Michelle Landon M.D. Terminal Supervisor, Neurology GN:fermin C: 06/28/97 cc: RUBIA VALLES MD [address] [facility] [address] Alina Moise M.D. Professor and Hris Developer, Division of Neurosurgery Robert Carlson M.D. Professor, Vascular Surgery documented in this encounter Plan of Treatment Not on filedocumented as of this encounter Visit Diagnoses Not on filedocumented in this encounter"
--- OUTSIDE RECORDS SUMMARY | ~2020-05-08 | XMS | Encounter Summary ---
Demographics + + + | Address | [address] | | | [place] [address] | + + + | Home Phone [...] Organization | [facility] | | | [...] Team Providers + +------+ + | Care Graphite Grinder Name | Role | Phone | [...] [place] | | | | | | [address] | (Fax) | | | | | [phone] | | | +--------+ + + + [...] HOSPITAL[facility] | | | | | | [address] | | | | | | | [...]
--- OUTSIDE RECORDS SUMMARY | ~2020-05-08 | XMS | Encounter Summary ---
Demographics + + + | Address | [address] | | | [place] [address] | + + + | Home Phone [...] [place] | | | | | [address] | | + + + + + Care Team Providers + +------+ + | Care Aerodynamic Consultant Name | Role | Phone | [...] Vyas | | | | | | [facility], [address] [place] [address] | | | | | | [place], [place] | | | | | | [address] | | | | | | [phone] | | | +--------+ + + + [...] as of this encounter Discharge Summaries Interface, Principal Web Developer In - 02/05/2007 1:03 AM PST [address] [address] [facility] MEDICAL SUMMARY OF HOSPITALIZATION Med Rec No.: [id number] Admission Date: 12/28/96 Name: Kavon Andujar Discharge Date: 01/03/97 STAFF PHYSICIAN: Robert Carlson M.D. Professor, Vascular Surgery PRINCIPAL FINAL DIAGNOSIS: Osteophyte of left qstzp-fwk-ljla amputation stump. ADDITIONAL DIAGNOSES: Phantom pain. PRINCIPAL PROCEDURE: Revision of left ygzau-hct-cjqt amputation stump and excision of left stump osteophyte. 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 Since then he has had pain in the stump. On a computed tomography (CT) scan, it was noted that he had a large bone spur and a cyst in his stump site. HOSPITAL COURSE: The patient was admitted on December 28 and underwent revision of his left tdqdt-kzl-enwi amputation stump with excision of his left [...] Normal. 3. DIET: Normal. Nick Noriega M.D. Fisheries Management Biologist, General Surgery Robert Carlson M.D. Professor, Vascular Surgery DOMINIC/jc A cc: RUBIA KNAPP MD [address] [facility] [address] documented in this encounter Plan of Treatment Not on filedocumented as of this encounter Visit Diagnoses Not on filedocumented in this encounter"
--- OUTSIDE RECORDS SUMMARY | ~2020-05-08 | XMS | Encounter Summary ---
Demographics + + + | Address | [address] | | | [place] [address] | + + + | Home Phone [...] [place] | | | | | [address] | | + + + + + Care Team Providers + +------+ + | Care Printing Machine Mechanic Name | Role | Phone [...] [address] | | | | | | [place], [place] | | | | | | [address] | | | | | | [phone] | | | +--------+ + + + [...] as of this encounter Progress Notes Interface, Wafer Cleaner In - 01/09/2007 5:07 AM PST CLINIC DATE: 10/03/97 [facility] - PROGRESS [...] Vargas D.O. Resident, Anesthesiology Nelson Melara M.D. Fruit Buying Grader, Anesthesiology [facility] KAYLEENM/cjv cc: LB SPRINGERUPSTATE [place] [address] JESSENIA RODRIGUEZ MD DEPARTMENT OF FAMILY MEDICINE [facility] documented in this encounter Plan of Treatment Not on filedocumented as of this encounter Visit Diagnoses Not on filedocumented in this encounter"
--- OUTSIDE RECORDS SUMMARY | ~2020-05-08 | XMS | Encounter Summary ---
Demographics + + + | Address | [address] | | | [place] [address] | + + + | Home Phone [...] Team Providers + +------+ + | Care Saturator Name | Role | Phone | + +------+ + | Rahul Silva MD | PCP | | + +------+ + Encounter Details +--------+ + + + + | Date | Type | Department | Care Team | Description | +--------+ + + + + | 08/31/ | Orders Only | [facility] | Farrukh Acuna MD | | | 2013 | | NEPHROLOGY [place] | [address] [place] | | | | | [address] [place] | [address] [place], [place] | | | | | [address] [place], [place] | [address] | | | | | [address] | | | | | | [phone] | | | +--------+ + + + [...] | | | | | | 160 [place] | | | | | | [address] | | | | | | | [...]
--- OUTSIDE RECORDS SUMMARY | ~2020-05-08 | XMS | Encounter Summary ---
Demographics + + + | Address | [address] | | | [place] [address] | + + + | Home Phone [...] Providers + +------+ + | Care Phone Specialist Name | Role | Phone | + +------+ + | Rahul Silva MD | PCP | | + +------+ + Encounter Details +--------+ + + + + | Date | Type | Department | Care Team | Description | +--------+ + + + + | 06/23/ | Orders Only | [facility] | Provider, | Chronic kidney | | 2019 | | SYSTEM GENERIC OP | [address], [address] | disease, stage IV | | | | CONVERSION [address] | [address] | (severe) ([facility]); | | | | [address] [place], [place] | [place] [address] | Persistent | | | | [address] | | proteinuria; | | | | [phone] | | Secondary | | | | | | hyperparathyroidism | | | | | | of renal origin | | | | | | ([facility]); Family | | | | | [...] | | | | | | [address] [place], [place] | | | | | | [address] | | | | | | | [...]
--- OUTSIDE RECORDS SUMMARY | ~2020-05-08 | XMS | Encounter Summary ---
Demographics + + + | Address | [address] | | | [place] [address] | + + + | Home Phone [...] Team Providers + +------+ + | Care Meterman Name | Role | Phone | + [...] kidney | | 2019 | | NEPRHOLOGY [facility] | [address] | disease, stage IV | | | | [address] | [address] [place], [place] | (severe) (HCC); | | | | [address] [place], [place] | [address] | Persistent | | | | [address] | | proteinuria; | | | | [phone] | | Secondary | | | | [...] | | | | | | [address] [place], [place] | | | | | | [address] | | | | | | | [...]
--- OUTSIDE RECORDS SUMMARY | ~2020-05-08 | XMS | Encounter Summary ---
Demographics + + + | Address | [address] | | | [place] [address] | + + + | Home Phone [...] Providers + +------+ + | Care Spring Maker Name | Role | Phone [...] [address] | [address] | (severe) ([facility]); | | | | [address] [place], [place] | [place] [address] | Persistent | | | | [address] | | proteinuria; | | | | [phone] | | Secondary | | | | | | hyperparathyroidism | | | | | | of renal origin | | | | | | ([facility]); Family | | | | [...] | | | | | | [address] [place], [place] | | | | | | [address] | | | | | | | [...] origin | | | | | | ([facility]) Persistent | | | | [...] origin | | | | | | ([facility]) Persistent | | | | [...] origin | | | | | | ([facility]) Persistent | | | | [...]
--- OUTSIDE RECORDS SUMMARY | ~2020-05-08 | XMS | Encounter Summary ---
Demographics + + + | Address | [address] | | | [place] [address] | + + + | Home Phone [...] Team Providers + +------+ + | Care Clerical Associate Name | Role | Phone | [...] | 2019 | Procedure | [facility] | [address] | | | | | OPER[address] | [address], [place] | | | | | [address] | [address] | | | | | [place], [place] | [phone] | | | | | [address] | | | | | | [phone] | | | +--------+ + + + [...] | | | | | | [address] [place] | | | | | | [address] | | | | | | | | +--------+---------+ + + + documented as of this encounter Visit Diagnoses Not on filedocumented in this encounter"
--- OUTSIDE RECORDS SUMMARY | ~2020-05-08 | XMS | Encounter Summary ---
Demographics + + + | Address | [address] | | | [place] [address] | + + + | Home Phone [...] Team Providers + +------+ + | Care Edger Machine Operator Name | Role | Phone [...] N Young | | | | | [place], [place] | [place], [place] | | | | | [address] | [address] | | | | | [phone] | [phone] | | | | | | | [...] | | | | | | [address] [facility] | | | | | | [address] | | | | | | | [...]
--- OUTSIDE RECORDS SUMMARY | ~2020-05-08 | XMS | Encounter Summary ---
Demographics + + + | Address | [address] | | | [place] [address] | + + + | Home Phone [...] Providers + +------+ + | Care Transit Police Officer Name | Role | Phone [...] N Young | | | | | [place], [place] | [place], [place] | | | | | [address] | [address] | | | | | [phone] | [phone] | | | | | | | [...] | | | | [address] [facility] | | | | | | [address] | | | | | | | [...]
--- OUTSIDE RECORDS SUMMARY | ~2020-05-08 | XMS | Encounter Summary ---
Demographics + + + | Address | [address] | | | [place] [address] | + + + | Home Phone [...] Providers + +------+ + | Care Crepe Laminator Operator Name | Role | Phone | [...] + + | 08/10/ | Telephone | [facility] | Brian Orosco MD | Other (orders ) | | 2019 | | VASCULAR SURGERY | [address] | | | | | [address] | [place], [place] | | | | | [place], [place] | [address] | | | | | [address] | [phone] | | | | | [phone] | | | +--------+ + + + [...] | | | | | | [address] [place], [place] | | | | | | [address] | | | | | | | | +--------+---------+ + + + documented as of this encounter Visit Diagnoses Not on filedocumented in this encounter"
--- OUTSIDE RECORDS SUMMARY | ~2020-05-08 | XMS | Encounter Summary ---
Demographics + + + | Address | [address] | | | [place] [address] | + + + | Home Phone [...] | Darci Andujar | [place] | [place] | | | | | [address] | | + + + + + Care Team Providers + +------+ + | Care Production Operator Name | Role | Phone | [...] [address] | | | | | | [place], [place] | | | | | | [address] | | | +--------+ + + + [...] as of this encounter Progress Notes Interface, Cook Box Filler In - 03/27/2007 3:12 AM PDT CLINIC [...] an abnormal AC-BE, he was referred to [facility] for colonoscopy. MEDICATIONS: 1. Vicodin. 2. [...] Dr. Valles who is his physician in [place], [place]. He has made me aware that [...] M.D. Fellow, Gastroenterology SHANEL/stephon cc: [facility] [place] documented in this encounter Plan of Treatment Not on filedocumented as of this encounter Visit Diagnoses Not on filedocumented in this encounter"
[~2020-05-08 19:12] MED LIST changes: +MAALOX ADVANCE355 ML PO
--- OUTSIDE RECORDS SUMMARY | 2020-05-08 19:16 | XMS ---
PreManage Notification: PORFIRIO ZAVALA Security Land Title Examiner Events No recent Security Events currently on file CRITERIA MET - History of Sepsis Dx - PDMP [facility] ATEME PHONE: [phone] Alina Clark Entry Level Marketing Assistant/Streaming Media Specialist 08/31/2018-Current PHONE: [phone] Agapito has no Care Guidelines for this patient. Care History Medical/Surgical 11/10/2019 [facility] - PLEASE MAKE SURE- ALL RECORDS ARE SENT TO DR ACUNA-PATIENT MILL OPERATOR IN [place]. 05/28/2018 [facility] - Patient currently sees skirt maker Dr Acuna and patient has last seen Dr Acuna on 05/25/18. - Patient had last seen his PCP Dr Silva on 05/06/18. - MA for Dr Silva will provide ED report to Dr Acuna [...] ED please contact Community Health WorkerLizzy at [phone]. These are guidelines and the provider should exercise clinical judgment when providing care. 07/25/2017 [facility] HISTORY: COPD, DMII, HTN, CVA X3, KIDNEY FAIL STAGE 3 WITH SHORT TERM DIALYSIS, CPAP USE SURGERY HISTORY: GILBERT ESPINAL, PANCRETIC TUMOR REMOVAL Gloria VISIT COUNT (12 MO.) 6 [facility]. TOTAL 6 NOTE: Visits indicate total known visits. ED/UCC VISIT TRACKING (12 MO.) 05/08/2020 19:13 [facility] [place] TYPE: Emergency COMPLAINT: - CHEST PAIN 02/14/2020 22:[address] [facility] [place] TYPE: Emergency COMPLAINT: - HIGH BLOOD SUGAR DIAGNOSES: - Nicotine dependence, unspecified, uncomplicated - Type 2 diabetes mellitus with hyperglycemia - Chest pain, unspecified - Chronic obstructive pulmonary disease, unspecified - Heart failure, unspecified - Hypertensive heart disease with heart failure 11/18/2019 21:05 [facility] [place] TYPE: Emergency COMPLAINT: - CONFUSION DIAGNOSES: - Chronic kidney disease, stage 4 (severe) - Dependence on renal dialysis - Hypertensive heart and chronic kidney disease with heart fail - Heart failure, unspecified - Disorientation, unspecified - Type 2 diabetes mellitus with diabetic chronic kidney disease - Other half-way (current) drug therapy - Chronic obstructive pulmonary disease, unspecified - Personal history of nicotine dependence 11/04/2019 13:11 [facility] [place] TYPE: Emergency COMPLAINT: - MEMORY PROBLEM DIAGNOSES: - Heart failure, unspecified - Allergy status to other drugs, medicaments and biological sub - Anemia in chronic kidney disease - Other long term care social worker (current) drug therapy - Personal history of nicotine dependence - Hypertensive heart and chronic kidney disease with heart fail - Chronic kidney disease, stage 4 (severe) - FCI (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 of insulin - Acute kidney failure, unspecified - Dependence on other enabling machines and devices - Vascular dementia without behavioral disturbance - FCI (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 of anticoagulants - vermin exterminator (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 of aspirin - Type 2 diabetes mellitus with diabetic chronic kidney disease - Chronic obstructive pulmonary disease, unspecified - Dependence on renal dialysis - Unspecified coma - Personal history of transient ischemic attack (TIA), and cere 10/10/2019 20:25 [facility] [place] TYPE: Emergency COMPLAINT: - CHEST PAIN DIAGNOSES: - Allergy status to other drugs, medicaments and biological sub - Type 2 diabetes mellitus with diabetic chronic kidney disease - Heart failure, unspecified - Unspecified abdominal pain - Chest pain, unspecified - Chronic obstructive pulmonary disease, unspecified - Personal history of nicotine dependence - Chest pain, unspecified - vermin exterminator (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 of aspirin - Personal history of transient ischemic attack (TIA), and cere - FCI (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 of insulin - Hypomagnesemia - Hypertensive heart and chronic kidney disease with heart fail - Chronic kidney disease, stage 4 (severe) - Other long term care social worker (current) drug therapy 09/27/2019 12:22 [facility] [place] TYPE: Emergency COMPLAINT: - SOB INPATIENT VISIT TRACKING (12 MO.) 09/27/2019 16:[address] [facility] [place] TYPE: Medical Surgical COMPLAINT: - PNA DIAGNOSES: - Adverse effect of other opioids, initial encounter - FCI (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 of antithrombotics/antiplatelets - Anemia in chronic kidney disease - Acquired absence of left leg above knee - 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 classified elsewh - Nicotine dependence, unspecified, uncomplicated - Panlobular emphysema - Panlobular emphysema - Type 2 diabetes mellitus with diabetic chronic kidney disease - FCI (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 of insulin - Allergy status to other drugs, medicaments and biological sub - Opioid dependence, uncomplicated - Other long term care social worker (current) drug therapy - Nicotine dependence, unspecified, uncomplicated - Pneumonia due to Streptococcus pneumoniae - Chronic pain syndrome - Dependence on wheelchair - FCI (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 of insulin - Acquired absence of left leg above knee - 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 classified elsewh - Chronic kidney disease, stage 4 (severe) - Obstructive sleep apnea (adult) (pediatric) - Personal history of transient ischemic attack (TIA), and cere - Hyperlipidemia, unspecified - Chronic kidney disease, stage 4 (severe) - Chronic pain syndrome - Personal history of transient ischemic attack (TIA), and cere - Obstructive sleep apnea (adult) (pediatric) - Type 2 diabetes mellitus with diabetic chronic kidney disease - Allergy status to other drugs, medicaments and biological sub - Drug induced constipation - 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
--- NOTE | 2020-05-09 06:58 | EKG ---
[facility] [address] [facility] [place] [address] Signed Sinus rhythm with premature supraventricular complexes Otherwise normal ECG When compared with ECG of 14-FEB-2020 22:29, premature supraventricular complexes are now present Confirmed by DARSHAN LEAL MD ([id number]) on 05/09/2020 6:57:47 AM Electronically Signed By: DARSHAN LEAL MD 05/09/20 0658 PATIENT NAME: LUCASPORFIRIOTONIA CHACON Electrocardiogram DATE OF : 40 PHYSICIAN: DARSHAN LEAL MD REPORT #: [id number] REPORT IS CONFIDENTIAL AND NOT TO BE RELEASED WITHOUT AUTHORIZATION
== END 2020-05-08 21:04 | disposition home or self-care (01) ==
LOC: ED 19:12
DX: R07.89 Other chest pain (principal); E11.22 Type 2 diabetes mellitus with diabetic chronic kidney disease; I13.0 Hypertensive heart and chronic kidney disease with heart failure and stage 1 through stage 4 chronic kidney disease, or unspecified chronic kidney disease; N18.4 Chronic kidney disease, stage 4 (severe); I50.9 Heart failure, unspecified; J44.9 Chronic obstructive pulmonary disease, unspecified; F17.200 Nicotine dependence, unspecified, uncomplicated; Z79.899 Other long term (current) drug therapy
CPT/HCPCS: 71045; 80053; 84484; 85025; 85379; 93005; 93010; 96374; 96375; 99285-25; J1170; J1885; J2405

== ENCOUNTER 2020-05-11 17:14 | Emergency (ER) | payer MEDICARE, OTHER ==
[~2020-05-11] VITALS: Ht 172.7 cm; Wt 86.2 kg
--- NOTE | ~2020-05-11 | EKG ---
[facility] [address] [facility] [place], [place] [address] Draft EK completed, results pending confirmation PATIENT NAME: LUCASPORFIRIO OSWALDO Electrocardiogram DATE OF : 40 PHYSICIAN: PRELIMINARY REPORT #: [id number] REPORT IS CONFIDENTIAL AND NOT TO BE RELEASED WITHOUT AUTHORIZATION
--- OUTSIDE RECORDS SUMMARY | 2020-05-11 17:18 | XMS ---
PreManage Notification: PORFIRIO ZAVALA Security Braider Operator Events No recent Security Events currently on file CRITERIA MET - History of Sepsis Dx - PDMP - [facility] - 2 Visits in 30 Days CARE PROVIDERS JESSENIA GOSS [facility] 05/09/2020-Current PH[facility]: [phone] [facility] HARDIK Van PHONE: [phone] Alina Clark Ostrich Farmer/Brass Buffer 08/31/2018-Current PHONE: [phone] Agapito has no Care Guidelines for this patient. Care History Medical/Surgical 11/10/2019 [facility] - PLEASE MAKE SURE- ALL RECORDS ARE SENT TO DR ACUNA-PATIENT WOOD CRAFTER IN [place]. 05/28/2018 [facility] - Patient currently sees director perioperative Dr Acuna and patient has last seen [...] returns to ED please contact Community Health WorkerLizyz at [phone]. These are guidelines and the provider should exercise clinical judgment when providing care. 07/25/2017 [facility] HISTORY: COPD, DMII, HTN, CVA X3, KIDNEY FAIL STAGE 3 WITH SHORT TERM DIALYSIS, CPAP USE SURGERY HISTORY: GILBERT ESPINAL, PANCRETIC TUMOR REMOVAL Gloria VISIT COUNT (12 MO.) 7 [facility] TOTAL 7 NOTE: Visits indicate total known visits. ED/UCC VISIT TRACKING (12 MO.) 05/11/2020 17:15 [facility] TYPE: Emergency COMPLAINT: - SOB, WEAK, HIGH PULSE RATE 05/08/2020 19:13 [facility] [place] TYPE: Emergency COMPLAINT: - CHEST PAIN DIAGNOSES: - Chronic obstructive pulmonary disease, unspecified - Hypertensive heart and chronic kidney disease with heart fail - Type 2 diabetes mellitus with diabetic chronic kidney disease - Chronic kidney disease, stage 4 (severe) - Other chest pain - Nicotine dependence, unspecified, uncomplicated - Other chcf (current) drug therapy - Chest pain, unspecified - Heart failure, unspecified 02/14/2020 22:26 [facility] [place] TYPE: Emergency [...] with diabetic chronic kidney disease - Other chcf (current) drug therapy - Chronic obstructive pulmonary disease, unspecified - Personal history of nicotine dependence 11/04/2019 13:11 [facility] [place] TYPE: Emergency COMPLAINT: - MEMORY PROBLEM DIAGNOSES: - Heart failure, unspecified - Allergy status to other drugs, medicaments and biological sub - Anemia in chronic kidney disease - Other keno terminal operator (current) drug therapy - Personal history of nicotine dependence - Hypertensive heart and chronic kidney disease with heart fail - Chronic kidney disease, stage 4 (severe) - exterminator helper (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 of insulin - Acute kidney failure, unspecified - Dependence on other enabling machines and devices - Vascular dementia without behavioral disturbance - skilled nursing (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 of anticoagulants - skilled nursing (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 of aspirin - Type 2 [...] skilled nursing (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 of aspirin - Personal history of transient ischemic attack (TIA), and cere - exterminator helper (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 of insulin - Hypomagnesemia - [...] mellitus with diabetic chronic kidney disease - exterminator helper (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 of insulin - Allergy status to other drugs, medicaments and biological sub - Opioid dependence, uncomplicated - Other chcf (current) drug therapy - Nicotine dependence, unspecified, uncomplicated - Pneumonia due to Streptococcus pneumoniae - Chronic pain syndrome - Dependence on wheelchair - exterminator helper (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 of insulin - Acquired absence [...] Hyperlipidemia, unspecified - Drug induced constipation - exterminator helper (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 of aspirin - Anemia in chronic kidney disease - 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
== END 2020-05-11 19:37 | disposition home or self-care (01) ==
LOC: ED 17:14
DX: E11.649 Type 2 diabetes mellitus with hypoglycemia without coma (principal); I13.0 Hypertensive heart and chronic kidney disease with heart failure and stage 1 through stage 4 chronic kidney disease, or unspecified chronic kidney disease; E11.22 Type 2 diabetes mellitus with diabetic chronic kidney disease; N18.4 Chronic kidney disease, stage 4 (severe); I50.9 Heart failure, unspecified; J44.9 Chronic obstructive pulmonary disease, unspecified; F17.200 Nicotine dependence, unspecified, uncomplicated; Z88.8 Allergy status to other drugs, medicaments and biological substances; Z79.899 Other long term (current) drug therapy; Z79.4 Long term (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 of insulin; Z79.82 Long term (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 of aspirin
CPT/HCPCS: 80053; 81001; 84484; 85025; 93005; 93010; 99285-25

== ENCOUNTER 2020-05-16 14:42 | Emergency (ER) | payer MEDICARE, OTHER ==
[~2020-05-16] VITALS: Ht 172.7 cm; Wt 81.6 kg
--- OUTSIDE RECORDS SUMMARY | 2020-05-16 14:44 | XMS ---
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 Care History Medical/Surgical 11/10/2019 [facility] - PLEASE MAKE SURE- ALL RECORDS ARE SENT TO DR ACUNA-PATIENT STAVE AND BOLT EQUALIZER IN [place]. 05/28/2018 [facility] - Patient currently sees fluorescent solution mixer Dr Acuna and patient has last seen [...] ED please contact Community Health WorkerLizzy at [phone]. These are guidelines and the provider should exercise clinical judgment when providing care. 07/25/2017 [facility] HISTORY: COPD, DMII, HTN, CVA X3, KIDNEY FAIL STAGE 3 WITH SHORT TERM DIALYSIS, CPAP USE SURGERY HISTORY: GILBERT ESPINAL, PANCRETIC TUMOR REMOVAL EAugustina VISIT COUNT (12 MO.) 8 [facility] TOTAL 8 NOTE: Visits indicate total known visits. ED/UCC VISIT TRACKING (12 MO.) 05/16/2020 14:42 [facility] TYPE: Emergency COMPLAINT: - CHEST PAIN 05/11/2020 17:15 [facility] TYPE: Emergency COMPLAINT: - SOB, WEAK, HIGH PULSE RATE DIAGNOSES: - dianetic counselor (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 of insulin - Heart failure, unspecified - dianetic counselor (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 of aspirin - Allergy status to other drugs, medicaments and biological sub - Weakness - Chronic kidney disease, stage 4 (severe) - Hypertensive heart and chronic kidney disease with heart fail - Chronic obstructive pulmonary disease, unspecified - Nicotine dependence, unspecified, uncomplicated - Other sales appointment coordinator (current) drug therapy - Type 2 diabetes mellitus with hypoglycemia without coma - Type 2 diabetes mellitus with diabetic chronic kidney disease 05/08/2020 19:13 [facility] TYPE: Emergency COMPLAINT: - CHEST PAIN DIAGNOSES: - Chronic obstructive pulmonary disease, unspecified - Hypertensive heart and chronic kidney disease with heart fail - Type 2 diabetes mellitus with diabetic chronic kidney disease - Chronic kidney disease, stage 4 (severe) - Other chest pain - Nicotine dependence, unspecified, uncomplicated - Other jail (current) drug therapy - Chest pain, unspecified [...] with diabetic chronic kidney disease - Other sales appointment coordinator (current) drug therapy - Chronic obstructive pulmonary disease, unspecified - Personal history of nicotine dependence 11/04/2019 13:11 [facility] [place] TYPE: Emergency COMPLAINT: - MEMORY PROBLEM DIAGNOSES: - Heart failure, unspecified - Allergy status to other drugs, medicaments and biological sub - Anemia in chronic kidney disease - Other sales appointment coordinator (current) drug therapy - Personal history of nicotine dependence - Hypertensive heart and chronic kidney disease with heart fail - Chronic kidney disease, stage 4 (severe) - dianetic counselor (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 of insulin - Acute kidney failure, unspecified - Dependence on other enabling machines and devices - Vascular dementia without behavioral disturbance - dianetic counselor (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 of anticoagulants - dianetic counselor (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 of aspirin - Type 2 [...] nicotine dependence - Chest pain, unspecified - [facility] (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 of aspirin - Personal history of transient ischemic attack (TIA), and cere - dianetic counselor (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 of insulin - Hypomagnesemia - Hypertensive heart and chronic kidney disease with heart fail - Chronic kidney disease, stage 4 (severe) - Other jail (current) drug therapy 09/27/2019 12:22 [facility] TYPE: Emergency COMPLAINT: - SOB INPATIENT VISIT TRACKING (12 MO.) 09/27/2019 16:43 [facility] TYPE: Medical Surgical COMPLAINT: - PNA DIAGNOSES: - Adverse effect of other opioids, initial encounter - dianetic counselor (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 of antithrombotics/antiplatelets - Anemia in chronic kidney disease - Acquired absence of left leg above knee - 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 classified elsewh - Nicotine dependence, unspecified, uncomplicated - Panlobular emphysema - Panlobular emphysema - Type 2 diabetes mellitus with diabetic chronic kidney disease - dianetic counselor (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 of insulin - Allergy status to other drugs, medicaments and biological sub - Opioid dependence, uncomplicated - Other sales appointment coordinator (current) drug therapy - Nicotine dependence, unspecified, uncomplicated - Pneumonia due to Streptococcus pneumoniae - Chronic pain syndrome - Dependence on wheelchair - [facility] (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 of insulin - Acquired absence [...] disease with stage 1 through stag - dianetic counselor (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 of aspirin - Adverse effect of other opioids, initial encounter - [facility] (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 of antithrombotics/antiplatelets - Opioid dependence, uncomplicated - Other jail (current) drug therapy [email or web address]
--- NOTE | 2020-05-16 18:37 | EKG ---
[facility] [address] [facility] [facility] [place] [address] Signed Sinus rhythm with premature atrial complexes Nonspecific ST abnormality Abnormal ECG When compared with ECG of 11-MAY-2020 17:27, premature atrial complexes are now present Confirmed by BROOKE FERNÁNDEZ DO ([id number]) on 05/16/2020 6:36:55 PM Electronically Signed By: BROOKE FERNÁNDEZ DO 05/16/20 1837 PATIENT NAME: PORFIRIO ZAVALA Electrocardiogram DATE OF : 40 PHYSICIAN: BROOKE FERNÁNDEZ DO REPORT #: [id number] REPORT IS CONFIDENTIAL AND NOT TO BE RELEASED WITHOUT AUTHORIZATION
== END 2020-05-16 17:29 | disposition home or self-care (01) ==
LOC: ED 14:42
DX: R07.9 Chest pain, unspecified (principal); J44.9 Chronic obstructive pulmonary disease, unspecified; I13.0 Hypertensive heart and chronic kidney disease with heart failure and stage 1 through stage 4 chronic kidney disease, or unspecified chronic kidney disease; N18.4 Chronic kidney disease, stage 4 (severe); I50.9 Heart failure, unspecified; E11.22 Type 2 diabetes mellitus with diabetic chronic kidney disease; Z87.891 Personal history of nicotine dependence; Z88.8 Allergy status to other drugs, medicaments and biological substances; Z79.4 Long term (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 of insulin; Z79.899 Other long term (current) drug therapy
CPT/HCPCS: 71250; 80053; 84484; 85025; 85379; 93005; 93010; 99285-25

== ENCOUNTER 2020-06-08 06:43 | Emergency (ER) | payer MEDICARE, OTHER ==
[~2020-06-08] VITALS: Ht 172.7 cm; Wt 81.7 kg
--- OUTSIDE RECORDS SUMMARY | ~2020-06-08 | XMS | Encounter Summary ---
Demographics + + + | Address | [address] | | | [place] [address] | + + + | Home Phone | | + + + | Preferred Language | Unknown | + + + | Marital Status | | + + + | Pentecostal Affiliation | [id number] | + + + | Race | Unknown | + + + | Ethnic Group | Unknown | + + + Author + + + | Author | [facility] | | | and [place] | + + + | Organization | [facility] | | | and [place] | + + + | Address | Unknown | + + + | Phone | Unavailable | + + + Support + + +---------+ + | Name | Relationship | Address | Phone | + + +---------+ + | Charlotte Zavala | ECON | Unknown | | + + +---------+ + Care Team Providers + +------+ + | Care Transactional Paralegal Name | Role | Phone | + +------+ + | Hardik Coyne MD | PCP | | + +------+ + Reason for Referral (Routine) +--------+--------+ + + + + | Status | Reason | Specialty | Diagnoses / | Referred By | Referred To | | | | | Procedures | Contact | Contact | +--------+--------+ + + + + | Closed | | | Diagnoses | Osmel | | | | | | Closed left | Petey E, MD | | | | | | hip | [address] | | | | | | fracture, | [place] | | | | | | initial | [place], [place] | | | | | | encounter | [id number] | | | | | | ([facility]) | Phone: | | | | | | Status post | [phone] | | | | | | above knee | Fax: | | | | | | amputation | [phone] | | | | | | of left | | | | | | | lower | | | | | | | extremity | | | | | | | Procedures | | | | | | | DME: Walker | | | +--------+--------+ + + + + Reason for Visit + + + | Reason | Comments | + + + | Head Injury | | + + + | Ear Laceration | | + + + Auth/Cert +--------+--------+ + + + + | Status | Reason | Specialty | Diagnoses / | Referred By | Referred To | | | | | Procedures | Contact | Contact | +--------+--------+ + + + + | | | | Diagnoses | | | | | | | | | | | | | | Hyperkalemia | | | | | | | Acute | | | | | | | hyperkalemia | | | | | | | Acute pain | | | | | | | PAOLO on | | | | | | | CPAP Status | | | | | | | post fall | | | | | | | Intractable | | | | | | | pain | | | | | | | Insulin | | | | | | | dependent | | | | | | | type 2 | | | | | | | diabetes | | | | | | | mellitus, | | | | | | | uncontrolled | | | | | | | (HCC) | | | | | | | Fall, | | | | | | | initial | | | | | | | encounter | | | | | | | Closed left | | | | | | | hip | | | | | | | fracture, | | | | | | | initial | | | | | | | encounter | | | | | | | (HCC) | | | | | | | Intertrochan | | | | | | | teric | | | | | | | fracture of | | | | | | | left hip, | | | | | | | closed, | | | | | | | initial | | | | | | | encounter | | | | | | | (HCC) | | | | | | | Chronic | | | | | | | kidney | | | | | | | disease | | | | | | | (CKD), stage | | | | | | | 3 | | | | | | | (moderate) | | | | | | | CKD (chronic | | | | | | | kidney | | | | | | | disease), | | | | | | | unspecified | | | | | | | stage | | | | | | | Laceration | | | | | | | of left ear, | | | | | | | initial | | | | | | | encounter | | | | | | | Chronic | | | | | | | obstructive | | | | | | | pulmonary | | | | | | | disease, | | | | | | | unspecified | | | | | | | COPD type | | | | | | | ([facility]) | | | | | | | | | | | | | | | | | +--------+--------+ + + + + Encounter Details +--------+ + + + + | Date | Type | Department | Care Team | Description | +--------+ + + + + | 08/03/ | Hospital | [facility] | Jose Andrade | Laceration of left | | 2016 - | Encounter | MED [facility] SUR[facility] | MD Mehrdad [address] | ear, initial | | | | [address] [place] | [address] [place] | encounter (Primary | | 08/05/ | | [place] [address] | [place] [address] | Dx); Closed left hip | | 2016 | | [phone] | [phone] | fracture, initial | | | | | | encounter ([facility]); | | | | | Linda Steiner, | Fall, initial | | | | | DO [address] | encounter; Acute | | | | | [address] [place], | pain; Hyperkalemia; | | | | | [place] [address] | CKD (chronic kidney | | | | | [phone] | disease), | | | | | | unspecified stage; | | | | | | Intractable pain; | | | | | | Acute hyperkalemia; | | | | | | Chronic kidney | | | | | | disease (CKD), stage | | | | | | 3 (moderate); | | | | | | Chronic obstructive | | | | | | pulmonary disease, | | | | | | unspecified COPD | | | | | | type (HCC); Insulin | | | | | | dependent type 2 | | | | | | diabetes mellitus, | | | | | | uncontrolled (HCC); | | | | | | Intertrochanteric | | | | | | fracture of left | | | | | | hip, closed, initial | | | | | | encounter ([facility]); | | | | | | PAOLO on CPAP; Status | | | | | | post fall; Status | | | | | | 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 | | | | | | lower extremity | | | | | | ([facility]); Phantom limb | | | | | | pain ([facility]) | +--------+ + + + + Social [...] + + documented as of this encounter Last Filed Vital Signs + + + + + | Vital Sign | Reading | Time Taken | Comments | + + + + + | Blood Pressure | 171/70 | 08/05/2016 7:25 AM | | | | | PDT | | + + + + + | Pulse | 69 | 08/05/2016 12:00 PM | | | | | PDT | | + + + + + | Temperature | 36.7 C (98.1 F) | 08/05/2016 7:25 AM | | | | | PDT | | + + + + + | Respiratory Rate | 16 | 08/05/2016 9:26 AM | | | | | PDT | | + + + + + | Oxygen Saturation | 90% | 08/05/2016 12:00 PM | | | | | PDT | | + + + + + | Inhaled Oxygen | - | - | | | Concentration | | | | + + + + + | Weight | 94 kg (207 lb 3.2 | 08/05/2016 5:00 AM | | | | oz) | PDT | | + + + + + | Height | 172.7 cm (5' 8") | 08/04/2016 2:56 AM | | | | | PDT | | + + + + + | Body Mass Index | 31.5 | 08/04/2016 2:56 AM | | | | | PDT | | + + + + + documented in this encounter Discharge Summaries Petey Bolivar MD - 08/05/2016 1:07 PM PDT [facility] DISCHARGE SUMMARY Pt. Name/Age/: Porfirio Zavala 76 y.o. 1940 Date of Admission: 08/03/2016 Date of Discharge: 08/05/2016 Admitting Physician: Linda Steiner DO Primary Care Provider: Hardik Coyne MD Discharging Physician: Petey Bolivar MD DISCHARGE DIAGNOSES: Active Hospital Problems Diagnosis Intertrochanteric fracture of left hip, closed, initial encounter Laceration of left ear, initial encounter Acute hyperkalemia this admission K of 5.6 lisinopril 40 mg daily associated with a inc reased creatinine at 2.03 Intractable pain Insulin dependent type 2 diabetes mellitus, uncontrolled Status post fall PAOLO on CPAP Phantom limb pain Chronic kidney disease (CKD), stage 3 (moderate) COPD (chronic obstructive pulmonary disease) Resolved Hospital Problems Diagnosis No resolved problems to display. DISCHARGE MEDICATIONS: Discharge Medications Unchanged Medications Details acyclovir 400 MG tablet Take 400 mg by mouth 2 times daily. Takes 400mg AM and HS aka: ZOVIRAX albuterol 2.5 mg/3 mL nebulizer solution Take 2.5 mg by nebulization every 6 hours as needed. albuterol-ipratropium 2.5-0.5 mg/3 mL Soln Take 3 mLs by nebulization Before breakfast, dinner and bedtime. aka: DUONEB amLODIPine 10 MG tablet Take 10 mg by mouth Daily. aka: NORVASC aspirin 81 mg chewable tablet Take 81 mg by mouth Daily. atenolol 50 mg tablet Take 50 mg by mouth Daily. aka: TENORMIN atorvaSTATin 80 MG tablet Take 80 mg by mouth nightly. aka: LIPITOR Cholecalciferol 64464 units Caps Take 50,000 Units by mouth Every 3 months. Times 3 doses aka: VITAMIN D-3 clopidogrel 75 mg tablet Take 75 mg by mouth Daily. aka: PLAVIX cyanocobalamin 1000 MCG tablet Take 1,000 mcg by mouth every 14 days. aka: VITAMIN B-12 doxepin 150 MG capsule Take 150 mg by mouth nightly. aka: SINEquan ferrous sulfate 325 mg tablet Take 325 mg by mouth 2 times daily (with breakfast & dinner). gabapentin 400 mg capsule Take 400 mg by mouth nightly. aka: NEURONTIN glimepiride 4 mg tablet Take 8 mg by mouth every morning (before breakfast). Takes 8mg QAC aka: AMARYL insulin aspart 100 units/mL injection cartridge Inject under the skin 3 times daily (before meals). Per following sliding scale: 151 20 0 = 2 units, 201-250 = 4 units, 251 300 = 6 units, 301 350 = 8 units, greater than 350 = 10 units and call M.D. aka: novoLOG PENFILL lisinopril 40 MG tablet Take 40 mg by mouth Daily. aka: PRINIVIL,ZESTRIL magnesium hydroxide 400 mg/5 mL suspension Take by mouth Daily as needed for Constipation. aka: MILK OF MAGNESIA metolazone 5 MG tablet Take 5 mg by mouth Daily. aka: ZAROXOLYN MULTIVITAMIN ADULT PO Take 1 tablet by mouth Daily. nicotine [address] 2 mg inside cheek every hour as needed (nicotine cravings). aka: NICORETTE nicotine 21 mg/[address] 1 patch onto the skin every 24 hours. aka: NICODERM ondansetron 4 mg disintegrating tablet Take 4 mg by mouth every 8 hours as needed. aka: ZOFRAN ODT oxyCODONE 15 mg immediate release tablet Take 15 mg by mouth every 4 hours. aka: ROXICODONE Discontinued Medications DULERA 100-5 mcg/puff inhaler Generic drug: mometasone-formoterol insulin glargine 100 units/mL injection (vial) aka: LANTUS levothyroxine 50 mcg tablet aka: SYNTHROID, LEVOTHROID LINZESS 145 mcg capsule Generic drug: linaclotide metFORMIN 1000 MG tablet aka: GLUCOPHAGE metoprolol tartrate 25 mg tablet aka: LOPRESSOR pantoprazole 40 mg tablet aka: PROTONIX sodium bicarbonate 650 mg tablet vancomycin 500 mg vials x 4 500 mg injection vitamin C 250 MG tablet DISCHARGE INSTRUCTIONS: Follow-up Information Follow up with Hardik Coyne MD. Specialty: Family Medicine Why: call for appointment in 7-10 days Contact information: [address] [place] [id number] PENDING RESULTS: HOSPITAL COURSE: Please refer to the H&P for full details. 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 The patient was assessed by Dr. Adonay Robison and not felt to b e a candidate for operative intervention with pain management felt to be adequate for treatm ent. He was instructed in the use of transferring and was able to demonstrate this such she was able to return to home. Lies his ear was repaired by Dr. Giorgio tobar with the plan of s uture removal subsequently. The patient also was noted to have a mild elevation in his potassium to 5.6 on admission wi th lisinopril 40 mg daily being given as of diabetes. lisinopril was held with his potassium falling to 4.9. Discharge patient was inadvertently placed on his lisinopril and his daugh ter will be contacted in the a.m. to discontinue this until follow-up with Dr. Coyne. The patient was discharged on the second hospital day plan follow-up with Dr. tobar for sut ure removal and recommendation with follow-up with his PCP Dr. Coyne in 7-10 days. PHYSICAL EXAM: Temp: 36.7 C (98.1 F), Pulse: 69, Resp: 16, BP: 171/70 mmHg, SpO2 90 % on room air at f low rate 3.5 (placed on room air )L/min Temp Min: 35.9 C (96.6 F) Max: 37.4 C (99.3 F) Weight: 90.719 kg (200 lb) The patient was a assessed and examined on the day of discharge instructions given to his d zarina and himself relative to recommendations. Less than 30 minutes were spent on discharge and coordination of post-hospital care. Electronically signed by: Petey Bolivar MD, 08/05/2016 13:07 [facility] Portions of this chart may have been created with [employer] voice recognition software. Occasi onal wrong-word or sound-alike substitutions may have occurred due to the inherent vanegas itations of voice recognition software. Please read the chart carefully and recognize, using context, where these substitutions have occurred documented in this encounter Discharge Instructions Instructions Maritza Devries RN - 08/05/2016Please call Dr. Tobar at [phone] for an y questions or concerns regarding his left ear. documented in this encounter Medications at Time of Discharge + + + +---------+ + + | Medication | Sig | Dispensed | Refills | Start | End Date | | | | | | Date | | + + + +---------+ + + | | Take 3 mLs by | | 0 | | | | albuterol-ipratropiu | nebulization Before | | | | | | m (DUONEB) 2.5-0.5 | breakfast, dinner | | | | | | mg/3 mL SOLN | and bedtime. | | | | | + + + +---------+ + + | aspirin 81 mg | Take 81 mg by mouth | | 0 | | | | chewable tablet | Daily. | | | | | + + + +---------+ + + | atorvaSTATin | Take 80 mg by mouth | | 0 | | | | (LIPITOR) 80 MG | nightly. | | | | | | tablet | | | | | | + + + +---------+ + + | clopidogrel | Take 75 mg by mouth | | 0 | | | | (PLAVIX) 75 mg | Daily. | | | | | | tablet | | | | | | + + + +---------+ + + | cyanocobalamin | Take 1,000 mcg by | | 0 | | | | (VITAMIN B-12) 1000 | mouth every 14 days. | | | | | | MCG tablet | | | | | | + + + +---------+ + + | insulin aspart | Inject under the | | 0 | | | | (NOVOLOG PENFILL) | skin 3 times daily | | | | | | 100 units/mL | (before meals). Per | | | | | | injection cartridge | following sliding | | | | | | | scale: 151 | | | | | | | | | | | | | | 200 = 2 units, | | | | | | | 201-250 = 4 units, | | | | | | | 251 | | | | | | | | | | | | | | 300 = 6 units, 301 | | | | | | | | | | | | | | 350 = 8 units, | | | | | | | greater than 350 = | | | | | | | 10 units and call | | | | | | | M.D. | | | | | + + + +---------+ + + | oxyCODONE | Take 15 mg by mouth | | 0 | | | | (ROXICODONE) 15 mg | every 4 hours. | | | | | | immediate release | | | | | | | tablet | | | | | | + + + +---------+ + + | acyclovir | Take 400 mg by mouth | | 0 | | | | (ZOVIRAX) 400 MG | 2 times daily. | | | | 9 | | tablet | Takes 400mg AM and | | | | | | | HS | | | | | + + + +---------+ + + | albuterol 2.5 mg/3 | Take 2.5 mg by | | 0 | | | | mL nebulizer | nebulization every 6 | | | | 9 | | solution | hours as needed. | | | | | + + + +---------+ + + | amlodipine | Take 10 mg by mouth | | 0 | | | | (NORVASC) 10 MG | Daily. | | | | 9 | | tablet | | | | | | + + + +---------+ + + | atenolol | Take 25 mg by mouth | | 0 | | | | (TENORMIN) 50 mg | Daily. | | | | 0 | | tablet | | | | | | + + + +---------+ + + | Cholecalciferol | Take 50,000 Units by | | 0 | | | | (VITAMIN D-3) [address] | mouth Every 3 | | | | 9 | | units CAPS | months. Times 3 | | | | | | | doses | | | | | + + + +---------+ + + | doxepin (SINEQUAN) | Take 150 mg by mouth | | 0 | | | | 150 MG capsule | nightly. | | | | 9 | + + + +---------+ + + | ferrous sulfate | Take 325 mg by mouth | | 0 | | | | 325 mg tablet | 2 times daily (with | | | | 9 | | | breakfast & | | | | | | | dinner). | | | | | + + + +---------+ + + | gabapentin | Take 400 mg by mouth | | 0 | | | | (NEURONTIN) 400 mg | as needed. | | | | 9 | | capsule | | | | | | + + + +---------+ + + | glimepiride | Take 8 mg by mouth | | 0 | | | | (AMARYL) 4 mg tablet | every morning | | | | 9 | | | (before breakfast). | | | | | | | Takes 8mg QAC | | | | | + + + +---------+ + + | lisinopril | Take 40 mg by mouth | | 0 | | | | (PRINIVIL,ZESTRIL) | Daily. | | | | 9 | | 40 MG tablet | | | | | | + + + +---------+ + + | magnesium | Take by mouth Daily | | 0 | | | | hydroxide (MILK OF | as needed for | | | | 9 | | MAGNESIA) 400 mg/5 | Constipation. | | | | | | mL suspension | | | | | | + + + +---------+ + + | metolazone | Take 5 mg by mouth | | 0 | | | | (ZAROXOLYN) 5 MG | Daily. | | | | 9 | | tablet | | | | | | + + + +---------+ + + | metOLazone 5 MG | Take 0.5 tablets by | | 0 | 07/19/20 | | | tablet | mouth daily. | | | 16 | 9 | + + + +---------+ + + | Multiple | Take 1 tablet by | | 0 | | | | Vitamins-Minerals | mouth Daily. | | | | 9 | | (MULTIVITAMIN ADULT | | | | | | | PO) | | | | | | + + + +---------+ + + | nicotine | Place 1 patch onto | | 0 | | | | (NICODERM) 21 mg/24 | the skin every 24 | | | | 9 | | hr | hours. | | | | | + + + +---------+ + + | nicotine | Place 2 mg inside | | 0 | | | | (NICORETTE) 2 mg gum | cheek every hour as | | | | 9 | | | needed (nicotine | | | | | | | cravings). | | | | | + + + +---------+ + + | ondansetron | Take 4 mg by mouth | | 0 | | | | (ZOFRAN ODT) 4 mg | every 8 hours as | | | | 9 | | disintegrating | needed. | | | | | | tablet | | | | | | + + + +---------+ + + documented as of this encounter Progress Notes Sonu Michel MD - 08/04/2016 11:33 AM PDTFormatting of this note might be differ ent from the original. [facility] Hospitalist Progress Note Porfirio Zavala is a 76 y.o. male SUBJECTIVE: Patient reports pain not well controlled Wants oxycodone restarted. Patient was evaluated b y ortho and does not warrant surgery VITALS: Temp: 36.8 C (98.2 F), Pulse: 69, Resp: 20, BP: 154/86 mmHg, SpO2 92 % on nasal cannula at flow rate 4L/min Temp Min: 36.8 C (98.2 F) Max: 37.5 C (99.5 F) Weight: 90.719 kg (200 lb) Intake/Output Summary (Last 24 hours) at 08/04/16 1133 Last data filed at 08/04/16 0615 Gross per 24 hour Intake 225 ml Output 75 ml Net 150 ml PHYSICAL EXAM: General: Alert OX3 Cardiovascular: S1 S2 audike Respiratory: CTAB Abdomen: S NT ND Extremities: L AKA R leg hyperpigmention DIAGNOSTIC STUDIES: Available data and images were reviewed personally. Significant results and findings are a ddressed here or in the Assessment and Plan. Recent Results (from the past 24 hour(s)) Basic Metabolic Panel Result Value Ref Range NA 139 136-149 mmol/L K 5.6 (H) 3.5-5.1 mmol/L CL 101 98-109 mmol/L CO2 22 (L) 24-31 mmol/L ANION GAP 16 3-16 mmol/L GLUCOSE 194 (H) 70-109 mg/dL BUN 36 (H) 7-18 mg/dL Creatinine, Serum/Plasma 2.03 (H) 0.60-1.30 mg/dL eGFR if not 32 (L) >=60 mL/min/1.73m2 CALCIUM 8.3 8.3-10.5 mg/dL BUN/CREA 17.7 Extra Green Top Tube Result Value Ref Range Extra Green Top Tube Done Extra Lavender Top Tube Result Value Ref Range Extra Lavender Top Tube Done Extra Gold Top Tube Result Value Ref Range EGDT Done Extra Blue Top Tube Result Value Ref Range Extra Blue Top Tube Done CBC with Differential Result Value Ref Range WBC 13.6 (H) 4.0-11.0 K/uL RBC 3.65 (L) 4.30-5.70 M/uL Hgb 11.1 (L) 13.5-18.0 g/dL Hct 33.0 (L) 40.0-51.0 % MCV 90.6 83.0-101.0 fL MCH 30.5 28.0-35.0 pg MCHC 33.6 32.0-36.0 g/dL RDW-CV 14.9 <15.0 % Platelet Count 293 140-440 K/uL MPV 8.1 fL % Neutrophils 84.7 (H) 45.0-82.0 % % Lymphocytes 6.3 (L) 20.0-45.0 % % Monocytes 6.6 4.0-12.0 % % Eosinophils 2.0 0.0-5.0 % % Basophils 0.4 0.0-1.0 % Absolute Neutrophils 11.50 (H) 1.80-8.50 K/uL Absolute Lymphocytes 0.90 0.60-3.20 K/uL Absolute Monocytes 0.90 0.00-1.00 K/uL Absolute Eosinophils 0.30 0.00-0.40 K/uL Absolute Basophils 0.10 0.00-0.10 K/uL ECG 12 lead Result Value Ref Range INTERPRETATION TEXT Not Confirmed Urinalysis with Microscopic with Culture if Indicated Result Value Ref Range COLOR Yellow Light Yellow, Yellow, Straw CLARITY Clear Clear PH UA 5.0 5.0-8.0 Specific [place] 1.015 1.001-1.030 PROTEIN UA 100 mg/dL (A) Negative BLOOD UA Negative Negative GLUCOSE UA 150 mg/dL (A) Negative KETONES UA Negative Negative BILIRUBIN UA Negative Negative NITRITE UA Negative Negative LEUKOCYTES ESTERASE UA Negative Negative UROBILINOGEN UA Negative 0.2 mg/dL, 1.0 mg/dL, Negative WBC UA 0-2 0-2 /HPF RBC UA 0-2 0-2 /HPF SQUAMOUS EPITHELIAL UA 0-2 0-2 /LPF BACTERIA UA Negative Negative /HPF MUCUS UA Present (A) Negative /LPF URINE COMMENT Urine Culture Not Indicated Basic Metabolic Panel Result Value Ref Range NA 135 (L) 136-149 mmol/L K 5.4 (H) 3.5-5.1 mmol/L CL 103 98-109 mmol/L CO2 25 24-31 mmol/L ANION GAP 7 3-16 mmol/L GLUCOSE 162 (H) 70-109 mg/dL BUN 39 (H) 7-18 mg/dL Creatinine, Serum/Plasma 2.09 (H) 0.60-1.30 mg/dL eGFR if not 31 (L) >=60 mL/min/1.73m2 CALCIUM 8.1 (L) 8.3-10.5 mg/dL BUN/CREA 18.7 CBC with Differential Result Value Ref Range WBC 9.3 4.0-11.0 K/uL RBC 3.19 (L) 4.30-5.70 M/uL Hgb 9.9 (L) 13.5-18.0 g/dL Hct 29.2 (L) 40.0-51.0 % MCV 91.5 83.0-101.0 fL MCH 30.9 28.0-35.0 pg MCHC 33.7 32.0-36.0 g/dL RDW-CV 14.3 <15.0 % Platelet Count 251 140-440 K/uL MPV 8.0 fL % Neutrophils 73.2 45.0-82.0 % % Lymphocytes 12.1 (L) 20.0-45.0 % % Monocytes 11.7 4.0-12.0 % % Eosinophils 2.4 0.0-5.0 % % Basophils 0.6 0.0-1.0 % Absolute Neutrophils 6.80 1.80-8.50 K/uL Absolute Lymphocytes 1.10 0.60-3.20 K/uL Absolute Monocytes 1.10 (H) 0.00-1.00 K/uL Absolute Eosinophils 0.20 0.00-0.40 K/uL Absolute Basophils 0.10 0.00-0.10 K/uL Magnesium Result Value Ref Range MG 2.9 (H) 1.8-2.5 mg/dL Protime INR Result Value Ref Range PROTIME 14.6 (H) 11.3-13.9 seconds INR 1.09 0.90-1.10 No results found. ASSESSMENT and PLAN: Active Hospital Problems Diagnosis *Intertrochanteric fracture of left hip, closed, initial encounter Laceration of left ear, initial encounter Acute hyperkalemia Intractable pain Insulin dependent type 2 diabetes mellitus, uncontrolled Status post fall PAOLO on CPAP Phantom limb pain Chronic kidney disease (CKD), stage 3 (moderate) COPD (chronic obstructive pulmonary disease) Resolved Hospital Problems Diagnosis Date Noted Date Resolved No resolved problems to display. L hip intertrochanteric fracture Ortho recommended non operative treatment Pain management Laceration of L ear S/p repair Dr Tobar Outpatient follow up with Dr Tobar Hyperkalemia Kayexlate Hold David DM Cont Lantus SSI PAOLO CPAP HTn Hold lisinopril Restart Norvasc Metoprolol 12.5 bid DVT proph Heparin Tobacco abuse Nicotine Home tomorrow Current Facility-Administered Medications: acetaminophen 650 mg Oral Q4H PRN albuterol 2.5 mg Nebulization RT Q2H PRN albuterol-ipratropium 3 mL Nebulization RT Q6H aspirin 81 mg Oral Daily atorvaSTATin 80 mg Oral Nightly dextrose 12.5 g Intravenous PRN ferrous sulfate 325 mg Oral BID WC gabapentin 400 mg Oral Nightly insulin lispro 0-12 Units Subcutaneous 4x Daily WC and HS metoprolol tartrate 12.5 mg Oral BID nicotine 1 patch Transdermal Daily nicotine polacrilex 2 mg Oral Q1H PRN ondansetron 4 mg Intravenous Q6H PRN oxyCODONE 15 mg Oral Q4H PRN pantoprazole 40 mg Oral QAM AC polyethylene glycol 17 g Oral Daily PRN senna 8.6 mg Oral BID sodium bicarbonate 650 mg Oral 4x Daily sodium polystyrene 30 g Oral Once Total time of approximately 45 minutes was spent with the patient and/or patient's family, and/or on the patient's floor/unit, of which more than 50% was spent counseling and/or coord ination the patient's care as outlined above. Sonu Michel 08/04/2016 11:33 [facility] Yuriy Farrell RRT - 08/04/2016 8:42 AM PDTFormatting of this note might be different from the origina l. 08/04/16 0840 Noninvasive/Cpap Mode Of Delivery BiPAP;auto titrating Equipment Type pts CPAP (PS min 3, PS max 5) IPAP (IPAP MAX 24) EPAP (EPAP min 13) Steven George MD - 08/03/2016 10:43 PM PDTdictated 10:5 1 PM PDTdocumented in this encounter H&P Notes Linda Steiner DO - 08/03/2016 11:57 PM PDTFormatting of this note might be different f rom the original. [facility] HISTORY & PHYSICAL Patient: Porfirio Zavala : 1940: Age: 76 y.o. MedRec: [id number] PCP: Hardik Coyne MD Admission date: 08/03/2016 Hospital day #: Physician author: Linda Steiner DO Today: 08/03/2016 CHIEF COMPLAINT: Status post fall out of wheelchair with head injury and left ear laceration with severe lef t stump pain. HISTORY OF PRESENT ILLNESS: This is a 76 y.o. 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 Patient was accepted for transfer by Dr. Mondragon of ENT and Dr. Robison of orthopedic surgery as patient's daughter requested high level of care for plastic surgery consultation and repair of his left ear. 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 Patient developed worsening of his chronic s evere left stump pain when he normally has both anthem and stump pain. Patient also suffere d a skin tear to his left wrist as well. CT imaging of his left hip showed evidence of IT f racture as well. Patient CT of the brain showed no acute findings. Patient required multip le doses of IV pain medications to help control his pain, but patient subjectively seems to be having still very severe pain that's has not been well controlled, but objectively he aldana s not appear in much distress. Workup on blood work at [facility] showed mildly elevated potassium at 5.4, but his EKG there was unremarkable. When patient arrived to this facility on repeat labs potassium was high at 5.6 and therefor e patient received dose of 15 g of Kayexalate as well as dose of regular insulin and an amp of dextrose to treat his hyperkalemia. He required several doses of IV morphine to try to g et his pain under control which was still unsuccessful. Dr. Tobar did come in and performed repair of patient's ear laceration in the emergency lety mLedy I was asked by Dr. Robison to admit patient to hospitalist service because of patient's m ultiple medical comorbidities and said that he would be coming in the morning to evaluate darius mott in consultation. According to patient he normally wears CPAP at night along with 4 L of oxygen, but during d ay he is usually not on any oxygen supplementation. Here in emergency room tonight he was s aturating 83% on room air and therefore he was placed on 4 L of nasal cannula oxygen as he w as getting multiple doses of IV pain medications. 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 SOCIAL HISTORY: reports that he has quit smoking. He does not have any smokeless tobacco history on file. He reports that he does not drink alcohol. REVIEW OF SYSTEMS: ROS See HPI. Questions asked in ROS include: Constitutional: fevers, sweats, chills, change in appetite, fatigue HEENT: nasal congestion, runny nose, sore throat, pain swallowing, neck pain, neck masses Cards: chest pain, dyspnea on exertion, palpitations, lightheadness,dizziness, leg swelling . Resp: shortness of breath, wheezing, chest congestion, cough with/with out phlegm, hemoptys is. GI: nausea, vomitting, diarrhea, constipation, abdominal pain, distention, acid reflux. : dysuria, increased frequency, urgency, difficulty to urinate. Neuro: headaches, change in vision, numbness or tingling, generalized or localized weaknes s. Remainder of other 11 points of review of systems have been reviewed and negative, except per HPI. HOME MEDICATIONS: Previous Medications ACYCLOVIR (ZOVIRAX) 400 MG TABLET Take 400 mg by mouth every 4 hours (while awake). ALBUTEROL 2.5 MG/3 ML NEBULIZER SOLUTION Take 2.5 mg by nebulization every 6 hours as n eeded. ALBUTEROL-IPRATROPIUM (DUONEB) 2.5-0.5 MG/3 ML SOLN Take 3 mLs by nebulization. AMLODIPINE (NORVASC) 10 MG TABLET Take 10 mg by mouth Daily. ASCORBIC ACID (VITAMIN C) 250 MG TABLET Take 250 mg by mouth 2 times daily. ATORVASTATIN (LIPITOR) 80 MG TABLET Take 80 mg by mouth nightly. CHOLECALCIFEROL (VITAMIN D-3) 1,000 UNITS CAPSULE Take 1,000 Units by mouth Daily. CLOPIDOGREL (PLAVIX) 75 MG TABLET Take 75 mg by mouth Daily. DOXEPIN (SINEQUAN) 150 MG CAPSULE Take 150 mg by mouth nightly. FERROUS SULFATE 325 MG TABLET Take 325 mg by mouth daily (with breakfast). GABAPENTIN (NEURONTIN) 400 MG CAPSULE Take 400 mg by mouth 3 times daily. INSULIN ASPART (NOVOLOG PENFILL) 100 UNITS/ML INJECTION CARTRIDGE Inject under the ski n 3 times daily (before meals). INSULIN GLARGINE (LANTUS) 100 UNITS/ML INJECTION Inject 50 Units under the skin nightly . LEVOTHYROXINE (SYNTHROID, LEVOTHROID) 50 MCG TABLET Take 50 mcg by mouth every morning (before breakfast). LINACLOTIDE (LINZESS) 145 MCG CAPSULE Take 145 mcg by mouth every morning (before break fast). LISINOPRIL (PRINIVIL,ZESTRIL) 40 MG TABLET Take 40 mg by mouth Daily. METFORMIN (GLUCOPHAGE) 1000 MG TABLET Take 1,000 mg by mouth 2 times daily (with breakf ast & dinner). METOLAZONE (ZAROXOLYN) 5 MG TABLET Take 5 mg by mouth Daily. METOPROLOL SUCCINATE (TOPROL-XL) 25 MG 24 HR TABLET Take 25 mg by mouth Daily. MOMETASONE-FORMOTEROL (DULERA) 100-5 MCG/PUFF INHALER Inhale 2 puffs into the lungs Twi ce Daily. NICOTINE (NICODERM) 21 MG/[address] 1 patch onto the skin every 24 hours. ONDANSETRON (ZOFRAN ODT) 4 MG DISINTEGRATING TABLET Take 4 mg by mouth every 8 hours as needed. OXYCODONE (ROXICODONE) 15 MG IMMEDIATE RELEASE TABLET Take 15 mg by mouth every 3 hours as needed. PANTOPRAZOLE (PROTONIX) 40 MG TABLET Take 40 mg by mouth every morning (before breakfas t). SODIUM BICARBONATE 650 MG TABLET Take 650 mg by mouth 4 times daily. Patient is unsure of which medications he is on as his daughter, who is his caregiver admin isters to him, hence will need to verify his accurate medication list from his daughter in a m as she is currently not here with the patient. His daughter is Charlotte Zavala, her contact numbers are: (h) [phone] & (c) [phone] ALLERGIES: No Known Allergies VITAL SIGNS: Temp: 37.5 C (99.5 F), Pulse: 76, Resp: 17, BP: 144/50 mmHg, SpO2 92 % on nasal cannula at flow rate 4L/min Temp Min: 37.5 C (99.5 F) Max: 37.5 C (99.5 F) Weight: 90.719 kg (200 lb) PHYSICAL EXAMINATION: Physical exam: General: A&O x 3, in mild objective, but reporting severe subjective distress due to his st ump pain, affect pleasant HEENT: Head normocephalic and atraumatic, eyes PERRLA, EOMI. Oral mucosa dry, tongue has po ssible thrush. Neck supple, no masses or lymphadenopathy. Left ear has new sutures in place placed earlier by Dr. Mondragon. Cardiac: RRR, no murmurs, gallops or rubs. Resp: CTAB, no wheezing or rales or crackles appreciated on auscultation. Abdominal: decreased bowel tones, soft, non tender to palpation, no guarding or rebound ten derness. No masses or hepatosplenomegally appreciated. Rectal deferred. : deferred. Extremities: no cyanosis, clubbing, edema or bruizing of right lower extremity. Left AKA st ump skin is intact, tender to palpation of the stump area. Skin: there is a skin tear of the left upper extremity with steri strips in place. Neuro: non focal exam is overall unremarkable. DIAGNOSTIC STUDIES: Recent Labs Lab 08/03/162106 WBC 13.6* HGB 11.1* HCT 33.0* PLT 293 NEUPCT 84.7* MONPCT 6.6 No results for input(s): PROTIME, INR in the last 168 hours. No results for input(s): PTT in the last 168 hours. Recent Labs Lab 08/03/16 1826 08/03/162106 GLU 212 194* NA 135 139 K 5.4 5.6* CL 103 101 CO2 27 22* ANIONGAP 10.5 16 BUN 40 36* CREA 2.06 2.03* GFRNONAA 32 32* CALCIUM 8.8 8.3 No results for input(s): BNP in the last 168 hours. No results for input(s): MG in the last 168 hours. No results for input(s): PHOS in the last 168 hours. No results for input(s): AMYLASE, LIPASE in the last 168 hours. No results for input(s): AMMONIA in the last 168 hours. No results for input(s): CK, CKMB in the last 168 hours. Invalid input(s): TROPONINI, CKTOTAL No results for input(s): PHART, PO2ART, EPY4YDA, PWE3QAO, BEART, O5DINEOE in the last 168 h ours. No results for input(s): SPECSOURCE, PHPOCB, HCO3, TCO2, BEART, BE, HEZZ6GZB in the last 16 8 hours. Invalid input(s): RXBYQ5YP, NUTF6CU (dot meylab) Xray Results: No results found. I reviewed imaging done at [facility]: CXR showed no acute disease. CT pelvis showed a nondisplaced left intertrochanteric fracture with hip in normal alignmen t. X-ray of left hip and pelvis: Was normal. CT head without contrast showed no acute changes, no skull fracture, no evidence of hemorrh age or cerebral swelling, no acute infarct, mass or abnormal extra axial fluid collections. The cavernous carotids and vertebral arteries are moderately calcified. The posterior dee a contents, brainstem, thalami and basal ganglia appear normal for age. Patchy low density in the periventricular white matter implies chronic small vessel ischemic changes. EKG Results (I reviewed EKGs) 1st at [facility]: Sinus bradycardia, rate 59 bpm, otherwi se normal EKG. 2nd at [facility]: Normal sinus rhythm, rate 78 bpm, otherwise normal EKG. ASSESSMENT: Principal Problem: Intertrochanteric fracture of left hip, closed, initial encounter Active Hospital Problems Diagnosis Intertrochanteric fracture of left hip, closed, initial encounter Laceration of left ear, initial encounter Acute hyperkalemia Intractable pain Insulin dependent type 2 diabetes mellitus, uncontrolled Status post fall PAOLO on CPAP Chronic kidney disease (CKD), stage 3 (moderate) COPD (chronic obstructive pulmonary disease) Resolved Hospital Problems Diagnosis No resolved problems to display. PLAN: Intertrochanteric fracture of left hip, closed, initial encounter - admit to surgical floor with remote telemetry secondary to hyperkalemia. - bed rest a this time. Will keep NPO as of now in case patient will need surgery today. - pain management with IV Dilaudid. - f/u Dr. Robison's recommendations in am. Laceration of left ear, initial encounter - s/p repair by Dr. Mondragon. Per Dr. Mondragon, patient's sutures can be removed on 08/12, which can be done in [place] by Dr. Muhammad who has clinic there every Friday. - skin care per nursing. Acute hyperkalemia - patient presented with elevated potassium in the setting of his fall and head and hip inj ury. - s/p treatment with Kayexalate and insulin/glucose in ED. - repeat BMP in am. - monitor patient on telemetry overnight to make sure its stable. Intractable pain - Dilaudid prn pain. - c/w Gabapentin qhs. Insulin dependent type 2 diabetes mellitus, uncontrolled - patient's blood glucose was 194 on presentation. - will place on medium algorithm Lispro SSI. Hold Lantus as patient will be NPO. Status post fall - obtain PT/OT eval in am. Patient told me that he doesn't want to go rehab facility and th at his daughter can take care of him at home. - will obtain Case management consultation to assist with safe disposition of patient. PAOLO on CPAP - will let patient use own CPAP with [address] on sleep apnea protocol. Chronic kidney disease (CKD), stage 3 (moderate) - we don't have patient's previous labs to compare to, but currently he appears to be in st age 3 renal disease. - since patient is NPO, will hydrate him gently with D51/2NS @ 75 cc/hr for 1 liter than sa line lock IV. COPD (chronic obstructive pulmonary disease) - appears stable at this time. - order nebs prn. I reviewed and summarized old records. DVT Prophylaxis SCD's while in bed of right lower extremity, no blood thinners at this time in case patient will have surgery in am. Code Status Full code Medical Decision Maker Patient CMS Documentation I expect this patient will be hospitalized for greater than 2-midnights and expect the post -hospital plan to be determined once additional information is obtained. Time spent with the patient (of which more than 50% was in counseling and/or coordination t he patient's care as outlined above) was 60 minutes. Electronically signed by: Linda Steiner DO 08/03/2016 23:57 [facility] Dot phrase reference: VSHOSP (VS in table, last 24 hours) MEYLAB (various labs to pull in) DT (date and time) LABRCNTIP[K:3,Na:3 (last 3 sets of labs using potassium and sodium as examples) HGB HCT PLT INR GLU POCGLU Na K BUN CREA, CALCIUM TROPONINI BNP DIGOXIN Portions of this chart may have been created with [employer] voice recognition software. Occasi onal wrong-word or sound-alike substitutions may have occurred due to the inherent vanegas itations of voice recognition software. Please read the chart carefully and recognize, using context, where these substitutions have occurred documented in this encounter Consult Notes Adonay Robison MD - 08/04/2016 10:15 AM PDT [place] [id number] CONSULTATION ADONAY ROBISON MD Patient: PORFIRIO ZAVALA Admitting: LINDA STEINER MR #: [id number] LOC: PT TYPE: Adm Date: 08/03/2016 : 1940 DATE OF CONSULTATION AND DATE OF DICTATION: 08/04/2016 IDENTIFICATION: Porfirio Zavala is a 76-year-old male who resides with his daughter in the [facility]. CHIEF COMPLAINT: Fall off wheelchair with left ear laceration and left stump pain. 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 He was found to have a left ear l aceration, a superficial skin tear on the left wrist and on CT scan was noted to have a no ndisplaced unicortical left hip intertrochanteric fracture. He also was found to have an e levated potassium of 5.6 and the decision was made to transfer the patient to [facility] in [place] for a more in depth evaluation and appropriate care, including re pair of the ear by ENT surgeon, Dr. Tobar. Consequently, the patient was transferred to [facility] to [facility] where indeed, Dr. Tobar came and repaired his ear laceration in the emergency room. [facility] and orthopedic consultation was requested. Today, the patient notes that he continues to have his usual left stump pain. He states t hat he takes oxycodone 15 mg approximately every 3 hours for this pain and he has not been able to have that medication because of concern for the need for possible surgery since . He does use a CPAP at night, but does not require oxygen supplementation during . Currently, he states that possibly he would like to avoid surgical intervention fo r his left hip. He notes that he does not use any type of prosthesis and does not use the left lower extremity for anything other than sitting balance in his wheelchair. Medical comorbidities include obstructive sleep apnea, COPD, diabetes mellitus type 2, con stipation, chronic stump pain, phantom limb pain, chronic kidney disease, obesity with a marilou dy mass index of 30, hypertension, dyslipidemia, lower extremity embolic phenomenon. PHYSICAL EXAMINATION: GENERAL: Reveals an alert 76-year-old male who appears to be in some degree of pain. EXTREMITIES: Examination of the left leg stump reveals that there is no chronic skin fernandez ge, redness or swelling suggestive of underlying infection or major trauma. The patient urena s some pain with motion of the stump, which he states has been present for years. He does have a repaired laceration of his left ear. X-RAYS: Plain film x-rays were reviewed of the left hip, which do not show any visible marilou ny abnormality other than diffuse osteopenia. CT scan is also reviewed, which does show an absolutely nondisplaced, possibly even a unic ortical intertrochanteric fracture of the left hip. ASSESSMENT: 1. Absolutely nondisplaced, minimally visible left hip intertrochanteric fracture. 2. Status post repair of left ear laceration. 3. 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 4. Multiple medical comorbidities. ADVICE: We discussed our findings with the patient and with his daughter by phone. In my opinion, he does not need surgery because he does not use a prosthesis and the fracture is absolutely nondisplaced. Furthermore, he is on Plavix, which will require a delay before e beltran considering surgical intervention. At this time, everybody is in agreement with nonop erative treatment of this problem. He is in need of a wheelchair, which I will order. His oral pain medication needs to be adjusted for better control and he would probably do bett er with a longer acting medicine such as OxyContin. He will need an x-ray of his left hip in 3-4 weeks, which easily could be obtained with an orthopedist in [place], or he may c ertainly come back to my office for this followup as well. I will follow the patient with you as needed. ADONAY ROBISON MD Dictated by ADONAY ROBISON MD 08/04/2016 10:15:13 Transcribed on 08/04/2016 10:52:[address] art# [id number] Confirmation #: [id number] cc: HARDIK COYNE MD donay Robison MD - 08/04/2016 10:15 AM PDTConsult note dictation # [id number]. documented in this encounter ED Notes Agustin Gordon RRT - 08/03/2016 10:45 PM PDTPt States he wears 4 Lpm NC all the time at home. RA SpO2 83%. i Jose macdonald MD - 08/03/2016 8:40 PM PDTFormatting of this note might be differe nt from the original. [facility] Emergency Department Encounter Note [address] [place] [address] PCP:Hardik Coyne MD [phone] CHIEF COMPLAINT: Chief Complaint Patient presents with Head Injury Ear Laceration ED Room: ED14/ED14 HPI Porfirio Zavala is a 76 y.o. male who presents to the Emergency Department Patient presents as a referral from [facility]. He's been accepted by Dr. tobar of ENT and Dr. Robison of orthopedic surgery. He has a [id number] amputation and fell out of his wheelchair earlier today. He struck his left hip and left side of his head against the ground. His family requested he be coker sferred to this hospital for plastic surgery consultation and repair of his left ear. I acc epted call from [facility] emergency department they confirmed the story dated imaging he has a left intercurrent trochanteric hip fracture as well as a negative CT scan of the head . He was noted to be mildly hyperkalemic at [facility]. On arrival he complains of left hip pain 5 out of 10 aching localized constant sudden onset with injury. PAST MEDICAL & SURGICAL HISTORY Past Medical History Diagnosis Date PAOLO (obstructive sleep apnea) COPD (chronic obstructive pulmonary disease) (HCC) Diabetes mellitus, type II (HCC) Constipation Epigastric pain Stump pain (HCC) Renal insufficiency Obesity Iron deficiency anemia Hypertension Dyslipidemia Lower extremity embolism (HCC) Past Surgical History Procedure Laterality Date Amputation Lower extremity CURRENT MEDICATIONS Previous Medications ACYCLOVIR (ZOVIRAX) 400 MG TABLET Take 400 mg by mouth every 4 hours (while awake). ALBUTEROL 2.5 MG/3 ML NEBULIZER SOLUTION Take 2.5 mg by nebulization every 6 hours as n eeded. ALBUTEROL-IPRATROPIUM (DUONEB) 2.5-0.5 MG/3 ML SOLN Take 3 mLs by nebulization. AMLODIPINE (NORVASC) 10 MG TABLET Take 10 mg by mouth Daily. ASCORBIC ACID (VITAMIN C) 250 MG TABLET Take 250 mg by mouth 2 times daily. ATORVASTATIN (LIPITOR) 80 MG TABLET Take 80 mg by mouth nightly. CHOLECALCIFEROL (VITAMIN D-3) 1,000 UNITS CAPSULE Take 1,000 Units by mouth Daily. CLOPIDOGREL (PLAVIX) 75 MG TABLET Take 75 mg by mouth Daily. DOXEPIN (SINEQUAN) 150 MG CAPSULE Take 150 mg by mouth nightly. FERROUS SULFATE 325 MG TABLET Take 325 mg by mouth daily (with breakfast). GABAPENTIN (NEURONTIN) 400 MG CAPSULE Take 400 mg by mouth 3 times daily. INSULIN ASPART (NOVOLOG PENFILL) 100 UNITS/ML INJECTION CARTRIDGE Inject under the ski n 3 times daily (before meals). INSULIN GLARGINE (LANTUS) 100 UNITS/ML INJECTION Inject 50 Units under the skin nightly . LEVOTHYROXINE (SYNTHROID, LEVOTHROID) 50 MCG TABLET Take 50 mcg by mouth every morning (before breakfast). LINACLOTIDE (LINZESS) 145 MCG CAPSULE Take 145 mcg by mouth every morning (before break fast). LISINOPRIL (PRINIVIL,ZESTRIL) 40 MG TABLET Take 40 mg by mouth Daily. METFORMIN (GLUCOPHAGE) 1000 MG TABLET Take 1,000 mg by mouth 2 times daily (with breakf ast & dinner). METOLAZONE (ZAROXOLYN) 5 MG TABLET Take 5 mg by mouth Daily. METOPROLOL SUCCINATE (TOPROL-XL) 25 MG 24 HR TABLET Take 25 mg by mouth Daily. MOMETASONE-FORMOTEROL (DULERA) 100-5 MCG/PUFF INHALER Inhale 2 puffs into the lungs Twi ce Daily. NICOTINE (NICODERM) 21 MG/[address] 1 patch onto the skin every 24 hours. ONDANSETRON (ZOFRAN ODT) 4 MG DISINTEGRATING TABLET Take 4 mg by mouth every 8 hours as needed. OXYCODONE (ROXICODONE) 15 MG IMMEDIATE RELEASE TABLET Take 15 mg by mouth every 3 hours as needed. PANTOPRAZOLE (PROTONIX) 40 MG TABLET Take 40 mg by mouth every morning (before breakfas t). SODIUM BICARBONATE 650 MG TABLET Take 650 mg by mouth 4 times daily. ALLERGIES No Known Allergies FAMILY AND SOCIAL HISTORY History reviewed. No pertinent family history. Social History Social History Marital Status: Spouse Name: N/A Number of Children: N/A Years of Education: N/A Social History Main Topics Smoking status: None Smokeless tobacco: None Alcohol Use: None Drug Use: None Sexual Activity: Not Asked Other Topics Concern None Social History Narrative REVIEW OF SYSTEMS As in history of present illness. A 10 system review was otherwise negative. PHYSICAL EXAM VITAL SIGNS: (first vital signs):Temp: 37.5 C (99.5 F) Pulse: 70 Resp: 22 SpO2: 92 % BP : 156/44 mmHg There is no height on file to calculate BMI. Constitutional: male patient, Mild distress HEENT: Atraumatic, PERRL, Oropharynx benign. Neck: Supple with full range of motion. No JVD, no lymphadenopathy, no meningismus and No Cervical Spine Tenderness to palpation or step-off noted.. Respiratory: Good air movement bilaterally. No wheezes, No, rales. Cardiovascular: Normal S1 S2 Abdomen: Soft, nontender. No rebound, guarding, or masses. Bowel tones normal. No pulsa tile masses Back: Within normal limits, No CVA tenderness and No midline thoracic or lumbar spinal tend erness Extremities: Nontender. No lower extremity edema, BKA left. Present distal pulses. Skin: Warm, Dry, No rashes Neurologic: Alert & oriented. Cranial nerves II-XII intact , Speech normal, gait not teste d Psychiatric: Normal mood, affect and judgement. There is no evidence of base of the skull fracture. There is no brian or rhinorrhea. There is no hemotympanum. There is no battles signs or racoon eyes. Midface is stable. Jaw aligns normally, there is no pain with bite, bite is strong and intact, teeth align normally there is no evidence of tooth avulsion. There is no evidence of depressed skull fx detected on exam. There is no evidence of septal hematoma. Laceration of left ear. PERRL, EOMI, no CN deficit detected on exam. There is no tenderness, deformity, or stepoff of the C,T, L, S, C spine. There is no saddle anaesthesia. Gluteal squeeze is intact. The chest wall is not tender and there is no bony crepitus. There is no seatbelt sign. The abdomen is soft, non tender, non distended. There is no gross deformity or pain with palpation of the long bones except tenderness with localized proximal left femur . The pelvis is stable. Sensation is intact and equal throughout head, face, and body. Distal pulses are intact x3 left BKA. Strength is 5/5 intact in 3 extremities. ED COURSE & MEDICAL DECISION MAKING Pertinent Labs & Imaging studies were reviewed along with EMS notes and custodial record s if applicable. (See chart for details) Medications and Allergy list reviewed. Nurses note and old records were reviewed The patient was seen and examined, For persistent pain he receives IV narcotic pain medication morphine 3 doses. Imaging from [place]' reviewed no skull fracture or intracranial bleed appreciated on CT scan there. No evidence of Intracranial bleed Skull fracture c spine fracture/dislocation/ligamentouns injury Closed head injury/concussion Fracture/dislocation of TLSC spine Rib fracture Pneumothorax Tension pneumothorax Blunt myocardial injury Intra abdominal injury Intra abdominal bleed Pelvis fracture Hemorrhage Case discussed Dr. Robison who will see patient in the a.m. Case discussed with Dr. tobar he'll be present for laceration repair this evening. Lacerat ion repair equipment set up for Dr. tobar. Dr. tobar presents and repairs laceration of lef t ear. CBC shows no anemia he has mild acidosis likely secondary to stress from trauma. CMP shows hyperkalemia at 5.6. He does have minimally peaked T waves on EKG with no eviden ce of ischemic change. He is treated with albuterol, insulin/glucose, and Kayexalate. Review admitted for further workup treatment and monitoring. Last Set of Vital Signs: Temp: 37.5 C (99.5 F) Pulse: 76 Resp: 17 SpO2: 92 % BP: 144/50 mmHg Critical care time : To treat this patients critical illness and prevent further clinical d eterioration, I have provided 31 minutes of critical care services which include high-comple xity assessment and management supportive of vital organ system function. FINAL IMPRESSION ICD-10-CM ICD-9-CM 1. Laceration of left ear, initial encounter S01.312A 872.8 2. Closed left hip fracture, initial encounter ([facility]) S72.002A 820.8 3. Fall, initial encounter W19.XXXA E888.9 4. Acute pain R52 338.19 5. Hyperkalemia E87.5 276.7 6. CKD (chronic kidney disease), unspecified stage N18.9 585.9 7. Intractable pain R52 780.96 Administrations This Visit albuterol 2.5 mg/3 mL nebulizer solution 5 mg Admin Date Action Dose Route Administered By 08/03/2016 Given 5 mg Nebulization Agustin Gordon, CONTINUOUS IMPROVEMENT SPECIALIST bacitracin topical ointment Admin Date Action Dose Route Administered By 08/03/2016 Given 1 Application Topical Kosta Wheeler RN dextrose 50% injection 25 g Admin Date Action Dose Route Administered By 08/03/2016 Given 25 g Intravenous Kosta Wheeler RN insulin regular (humuLIN R, novoLIN R) injection 10 Units Admin Date Action Dose Route Administered By 08/03/2016 Given 10 Units Intravenous Kosta Wheeler RN morphine injection 4 mg Admin Date Action Dose Route Administered By 08/03/2016 Given 4 mg Intravenous Jose Calhoun RN Admin Date Action Dose Route Administered By 08/03/2016 Given 4 mg Intravenous Jose Calhoun RN Admin Date Action Dose Route Administered By 08/03/2016 Given 4 mg Intravenous Kosta Wheeler RN ondansetron (ZOFRAN) injection 4 mg Admin Date Action Dose Route Administered By 08/03/2016 Given 4 mg Intravenous Jose Calhoun RN evhtvqb-fmtekmfnle-sevqsismm pertussis (ADACEL, Tdap) vaccine injection 0.5 mL Admin Date Action Dose Route Administered By 08/03/2016 Given 0.5 mL Intramuscular BAN Smith MD 08/03/16 2323 Tdocumented in this encounter Miscellaneous Notes Plan of Care - Ursula Betancourt RN - 08/05/2016 1:26 PM PDTProblem: Patient Care Overvi ew (Adult) Goal: Care Team Goals & Evaluation PROBLEM-RELATED GOALS: 1. Porfirio will maintain adequate oxygenation with supplemental oxygen, and maintain an SpO2 >88% by 08/07/16 2. Breath sounds will remain consistent with baseline function throughout stay and reverse airway bronchospasm when indicated. 08/07/16 3. .Porfirio will not suffer from untreated sleep apnea by 08/07/16 4. Pt to be able to safely perform bed mobility and transfers with family assist as needed by 08/05/16. STRATEGY TO ACHIEVE GOALS: -Monitor saturations via oximetry every four hours and titrate to ordered SpO2% as indicate d. -Administer formulary respiratory medication to maintain PTs home regimen. Identify SOB ear ly and treat with the appropriately indicated respiratory therapy. -Porfirio will use their home sleep apnea device, RT will monitor Q4. -Participation with therapies. RESTRAINT-RELATED GOALS: STRATEGIES TO ACHIEVE RESTRAINT GOALS: Outcome: Improving Goal Evaluation: Denies numbness/tinglying to RLE. LLE above knee amputation and has phantom pain. Pt able t o pivot transfer with one person to wheel. Has laceration to left ear. Pt refuses to leave d ressing on ear. Ear laceration is open to air. No drainage, swelling or redness. Gave pt an d daughter instruction to follow up with either dr. muhammad or dr. Tobar. Pt also has skin tear to left hand and wrist. OT came and redressed hand and wrist wounds. Pt A&O x 4. Hear regular, lungs clear. Pt discharged today with daughter. Both daughter and patient given discharge teaching and i nstructions. lan of [place] Brie Bauer, CONTINUOUS IMPROVEMENT SPECIALIST - 08/05/2016 12:55 PM PDTProblem: Patient Care Overview (Adult) Goal: Care Team Goals & Evaluation PROBLEM-RELATED GOALS: 1. Porfirio will maintain adequate oxygenation with supplemental oxygen, and maintain an SpO2 >88% by 08/07/16 2. Breath sounds will remain consistent with baseline function throughout stay and reverse airway bronchospasm when indicated. 08/07/16 3. .Porfirio will not suffer from untreated sleep apnea by 08/07/16 4. Pt to be able to safely perform bed mobility and transfers with family assist as needed by 08/05/16. STRATEGY TO ACHIEVE GOALS: -Monitor saturations via oximetry every four hours and titrate to ordered SpO2% as indicate d. -Administer formulary respiratory medication to maintain PTs home regimen. Identify SOB ear ly and treat with the appropriately indicated respiratory therapy. -Porfirio will use their home sleep apnea device, RT will monitor Q4. -Participation with therapies. RESTRAINT-RELATED GOALS: STRATEGIES TO ACHIEVE RESTRAINT GOALS: Outcome: Adequate for Discharge Date Met: 08/05/16 Goal Evaluation: Patient was weaned to room air daytime as per home regimen. He did not wear his BIPAP las t night. BS clear and diminished. Anticipate discharge. lan of [facility] - Lyn Goldsmith, PT - 08/05/2016 12:10 PM PDTProblem: Patient Care Overview (Adult) Goal: Care Team Goals & Evaluation PROBLEM-RELATED GOALS: 1. Porfirio will maintain adequate oxygenation with supplemental oxygen, and maintain an SpO2 >88% by 08/07/16 2. Breath sounds will remain consistent with baseline function throughout stay and reverse airway bronchospasm when indicated. 08/07/16 3. .Porfirio will not suffer from untreated sleep apnea by 08/07/16 4. Pt to be able to safely perform bed mobility and transfers with family assist as needed by 08/05/16. STRATEGY TO ACHIEVE GOALS: -Monitor saturations via oximetry every four hours and titrate to ordered SpO2% as indicate d. -Administer formulary respiratory medication to maintain PTs home regimen. Identify SOB ear ly and treat with the appropriately indicated respiratory therapy. -Porfirio will use their home sleep apnea device, RT will monitor Q4. -Participation with therapies. RESTRAINT-RELATED GOALS: STRATEGIES TO ACHIEVE RESTRAINT GOALS: Outcome: Goal Achieved Date Met: 08/05/16 Physical Therapy Daily Treatment Note Patient Information Patient Name: Porfirio Zavala Date of : 1940 Age: 76 y.o. History of Presenting Problem: s/p fall with hip fx. 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 Pt is s/p fall out of wheelchair with head injury and left ear l aceration and L intertrochanteric femur fx. Per RN, Dr. Robison has seen pt and he is not a surgical candidate so Dr. Robison is asking for PT to assess pt and assist with dischar ge planning. PT Diagnosis: pain, balance deficits, generalized weakness, impaired functional mobility Start Time: 1110 Stop time: 1140 Time Calculation: 30 minutes Missed Treatment Time: minutes Total Treatment Time: 30 minutes TimedTreatment Code Minutes: 30 minutes Subjective: Daughter present; pt anxious to get home. Says there are handicapped people in the car. Pt and daughter requesting FWW to help with transfers, but daughter said that she c an call pt's PCP if MD here does not write prescription for FWW here. Pt expressing gratitud e for wheelchair rep providing a loaner wheelchair. Pt's daughter asking if there is a place that she can store his old wheelchair, as they don't have room in the car for 2 wheelchairs . Pt and daughter agree that they will come back in for wheelchair clinic. They also state u nderstanding that if pt wants to or has to go with a different DME supplier, [employer] will come out to pt's home and retrieve the loaner wheelchair. Daughter also says that she understands that she will need to come back to [place] and pick and shovel worker pt's old wheelchair that she is le bipin here today. Objective: Treatment Provided: Pt and daughter provided with ed re: how wheelchair rep ([employer]) is loani ng pt a wheelchair but will still need to run his information through the system tomorrow to see if pt is eligible to get a new wheelchair and if his insurance will work with [employer]'s co rob. Pt and daughter instructed that they will need to come back to [facility] to come t o the wheelchair seating clinic and that our staff will call and let them to set an appt. Pt and daughter seen for functional mobility training (see below) in order to work towards goa l of facilitating safe home discharge. Education: See above. Pt also instructed in how to position wheelchair next to bed or sofa vs. In front in order to improve safety with transfers. Patient Status/Goals: Reflects last filed data of patient status; may be from multiple contributors. Transfers Bed-Chair, Level of [place]: contact guard assist Chair-Bed, Level of [place]: contact guard assist Nub-Puwxa-Ykn, Assistive Device: none Impairments: strength decreased, impaired balance, pain Bed Mobility Supine to Sit, Level of [place]: independent Sit to Supine, Level of [place]: independent Wheelchair Mobility Pt able to demo safe and independent ability to self propel manual wheelchair in room and hallway. ROM B UEs and R LE grossly WFL; L LE not tested due to recent fracture. Strength B UEs and R LE grossly WFL; L LE not tested due to recent fracture. STG GOALS Jess[place] Level: minimum assist (75% patient effort) Assistive Device: none Time to Achieve: 2 days Goal Status: met Transfer Training Goal, Activity Type: bed to chair /chair to bed Jess[place] Level: minimum assist (75% patient effort) Assistive Device: none Time to Achieve: 2 days Goal Status: met Assessment: Daughter is supportive and able to demo good ability to assist pt with transfer s. Pt now safely seated in loaner chair and should be good to discharge home from a mobility standpoint. Physical Therapy Anticipated Discharge Needs are: home with assist Have the anticipated discharge needs changed? no Post discharge physical therapy recommendation: Home PT. Plan for next treatment: Pt to d/c home today and return here for wheelchair clinic so he c an be fitted for his own new wheelchair if insurance will cover a new wheelchair. Electronically signed by: Lyn Dutton, PT, 08/05/2016 11:49 lan of Care - B Fernando covington, OT - 08/05/2016 9:56 AM PDTFormatting of this note might be different from t he original. Problem: Patient Care Overview (Adult) Goal: Care Team Goals & Evaluation PROBLEM-RELATED GOALS: 1. Porfirio will maintain adequate oxygenation with supplemental oxygen, and maintain an SpO2 >88% by 08/07/16 2. Breath sounds will remain consistent with baseline function throughout stay and reverse airway bronchospasm when indicated. 08/07/16 3. .Porfirio will not suffer from untreated sleep apnea by 08/07/16 4. Pt to be able to safely perform bed mobility and transfers with family assist as needed by 08/05/16. STRATEGY TO ACHIEVE GOALS: -Monitor saturations via oximetry every four hours and titrate to ordered SpO2% as indicate d. -Administer formulary respiratory medication to maintain PTs home regimen. Identify SOB ear ly and treat with the appropriately indicated respiratory therapy. -Porfirio will use their home sleep apnea device, RT will monitor Q4. -Participation with therapies. RESTRAINT-RELATED GOALS: STRATEGIES TO ACHIEVE RESTRAINT GOALS: Occupational Therapy Acute Initial Evaluation Note Patient Information Patient Name: Porfriio Zavala Date of : 1940 Age: 76 y.o. History Encounter Diagnoses Code Name Primary? S01.312A Laceration of left ear, initial encounter Yes S72.002A Closed left hip fracture, initial encounter ([facility]) W19.XXXA Fall, initial encounter R52 Acute pain E87.5 Hyperkalemia N18.9 CKD (chronic kidney disease), unspecified stage R52 Intractable pain E87.5 Acute hyperkalemia N18.3 Chronic kidney disease (CKD), stage 3 (moderate) J44.9 Chronic obstructive pulmonary disease, unspecified COPD type ([facility]) E11.65, Z79.4 Insulin dependent type 2 diabetes mellitus, uncontrolled ([facility]) S72.142A Intertrochanteric fracture of left hip, closed, initial encounter ([facility]) G47.33 PAOLO on CPAP Z91.89 Status post fall Z89.612 Status post above knee amputation of left lower extremity ([facility]) G54.7 Phantom limb pain ([facility]) Date of Onset: Past Medical History Diagnosis Date PAOLO (obstructive sleep apnea) On CPAP plus 4 L of oxygen at night COPD (chronic obstructive pulmonary disease) ([facility]) Diabetes mellitus, type II ([facility]) Constipation Epigastric pain Stump pain ([facility]) Renal insufficiency Obesity Iron deficiency anemia Hypertension Dyslipidemia Lower extremity embolism ([facility]) Phantom pain following amputation of lower limb ([facility]) Pain of amputation stump of left lower extremity ([facility]) Past Surgical History Procedure Laterality Date Amputation Above knee amputation of Left Lower extremity No Known Allergies Evaluation SUBJECTIVE: History of Presenting Problem: Porfirio Zavala is a 76 y.o. who presents to therapy for s/p fall with hip fx. 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 Pt is s/p fall out of wheelchair with head injury and left ear laceration and L i ntertrochanteric femur fx. Per RN, Dr. Robison has seen pt and he is not a surgical candid ate so Dr. Robison is asking for PT to assess pt and assist with discharge planning. Patient is right handed. OT Diagnosis: deconditioning, multiple skin tears on LUE, lateral elbow and wrist Previous Level of Function: Equipment Currently Used at Home: wheelchair, oxygen (pt has a power wheelchair with leg re sts but is unable to safely drive this (e.g. bumps into garcia, etc.) and an old manual wheel chair that is too large and has a sharp metal piece sticking out that he already cut himself on, so needs a new manual wc) Role/Relationships: Role Relationships Comment: Daughter is pt's caregiver and can provide 24/7 assist as neede d Living Environment/Accessibility: Lives With: child(nusrat), adult (daughter lives with pt) Home Accessibility: no concerns Number of Stairs to Enter Home: 0 Number of Stairs Within Home: 0 Financial Concerns: unable to obtain needed equipment Transportation Available: family or friend will provide (per pt, friend has a wheelchair ac cessible vehicle and he is coming tomorrow) Patient s Goals: Pt desires to d/c home today with daughter OT Visit Summary: Pt presents sitting EOB on arrival. Pt declined all mobility ADLs, stat ing he was at PLOF. Wounds uncovered and cleaned. Pt has 1/8" steri-strips on both elbow a nd wrist wounds. elbow wound strips still in place, skin still presenting as healthy. elbo w wound recovered and rewrapped with fresh gauze and kerlex. Wrist wound Steri-strips of 1/ 8" had all partially disconnected, leaving wrist wound open. With nursing assist, pt wound cleansed with saline, old steri-strips removed, new 1/4" steristrips placed, wound covered w ith gauze, kerlex, and Coban. Pt reports no other concerns/needs present. Call light in re ach. Occupational Therapy will follow Porfirio Zavala 3 times/wk until discharge from [facility] or discharged from the hospital. Occupational Therapy Anticipated Discharge Needs: Ongoing occupational therapy required. DC disposition TBD. Post discharge occupational therapy recommendation: home health Equipment Recommendations: none Identified Problems Needing Skilled Intervention: deconditioning, multiple skin tears on LUE, lateral elbow and wrist, aerobic capacity/endurance, gait, locomotion, and balance Planned Interventions:Planned Therapy Interventions: other (see comments) (manual therapy f or wound care) Transfers pt declined mobility, reported he is at PLOF pre-fall event, has no need for functional mob ility/ADL assessment. STG Goals OT Additional Goal #1: Pt to receive wound monitor and mgmt prior to d/c home with home hea lth. Time to Achieve: by discharge Goal Status: new, met Assessment: Occupational therapy orders received and acknowledged. Objective impairments i nclude deconditioning, decreased ADLs and functional mobility, multiple wounds. These impair ments are causing functional limitations with patient s inability to perform ADLs and func tional mobility. Complexities contributing to the need for skilled therapy include recent fx , pain. Prognosis: good, to achieve stated therapy goals Patient and/or family has indicated understanding of treatment needs and actively participa cassi in the creation of this plan for care. Today's Treatment Start Time: 0845 Stop time: 0915 Time Calculation: 30 minutes Missed Treatment Time: minutes Total Treatment Time: 30 minutes TimedTreatment Code Minutes: 15 minutes Objective: Education: OT POC, purpose of eval and wound care Treatment Provided: eval, wound care Assessment: pt wounds progressing, no sign of infection, minimal epithelialization occurrin g due to recentness of wounds. Plan for next treatment: none. Pt d/cing from hospital today. Electronically signed by: Fernando Locke OT, 08/05/2016 9:42 lan of Care - Pic[place] i-Sheri Armendariz RN - 08/05/2016 7:01 AM PDTProblem: Patient Care Overview (Adult) Goal: Care Team Goals & Evaluation PROBLEM-RELATED GOALS: 1. Porfirio will maintain adequate oxygenation with supplemental oxygen, and maintain an SpO2 >88% by 08/07/16 2. Breath sounds will remain consistent with baseline function throughout stay and reverse airway bronchospasm when indicated. 08/07/16 3. .Porfirio will not suffer from untreated sleep apnea by 08/07/16 4. Pt to be able to safely perform bed mobility and transfers with family assist as needed by 08/05/16. STRATEGY TO ACHIEVE GOALS: -Monitor saturations via oximetry every four hours and titrate to ordered SpO2% as indicate d. -Administer formulary respiratory medication to maintain PTs home regimen. Identify SOB ear ly and treat with the appropriately indicated respiratory therapy. -Porfirio will use their home sleep apnea device, RT will monitor Q4. -Participation with therapies. RESTRAINT-RELATED GOALS: STRATEGIES TO ACHIEVE RESTRAINT GOALS: Outcome: Improving Goal Evaluation: Discharge Plan: today back home w dtr Post-Op Day: inoperable L hip fx ad 08/03/16 Procedure: none steiner/ blue team Drains/ Lines: no Braces/ Collar Grade: no CPM: no Mobility: 1 person pivot to wheelchair; L above the knee amputee Continuous Pulse Ox: yes Diabetic: yes Pain: on chronic pain meds @ home; 15 mg oxy q 4 hrs PO, now improved pain control On tele Am labs, CMP, CBC, Phosphorous and Mg as well. Wound on L hand has a slight hematoma and small amount of drainage. Ear sutures open to ai r. Important for patient to f/u with [facility] next Friday in [place] to have sutures mello alexus. Skin tear/wound on L elbow wrapped in gauze, some dried drainage. Plan is to work with PT today to ensure pt can transfer safely to go home with dtr, and hopefully they can get i nsurance to cover a wheelchair that fits the pt better. VSS. lan of [place] - Yuriy Mccoy RRT - 08/04/2016 6:45 PM PDTProblem: Patient Care Overview (Adult) Goal: Care Team Goals & Evaluation PROBLEM-RELATED GOALS: 1. Porfirio will maintain adequate oxygenation with supplemental oxygen, and maintain an SpO2 >88% by 08/07/16 2. Breath sounds will remain consistent with baseline function throughout stay and reverse airway bronchospasm when indicated. 08/07/16 3. .Porfirio will not suffer from untreated sleep apnea by 08/07/16 4. Pt to be able to safely perform bed mobility and transfers with family assist as needed by 08/05/16. STRATEGY TO ACHIEVE GOALS: -Monitor saturations via oximetry every four hours and titrate to ordered SpO2% as indicate d. -Administer formulary respiratory medication to maintain PTs home regimen. Identify SOB ear ly and treat with the appropriately indicated respiratory therapy. -Porfirio will use their home sleep apnea device, RT will monitor Q4. -Participation with therapies. RESTRAINT-RELATED GOALS: STRATEGIES TO ACHIEVE RESTRAINT GOALS: Outcome: Improving Goal Evaluation: Rohini BiPAP set up today with 4 lpm bled-in per home regimen. BS diminished, likely base line. lan of Care - Lyn Dickinson, PT - 08/04/2016 5:39 PM PDTFormatting of this note might be different fro m the original. Problem: Patient Care Overview (Adult) Goal: Care Team Goals & Evaluation PROBLEM-RELATED GOALS: 1. Porfirio will maintain adequate oxygenation with supplemental oxygen, and maintain an SpO2 >88% by 08/07/16 2. Breath sounds will remain consistent with baseline function throughout stay and reverse airway bronchospasm when indicated. 08/07/16 3. .Porfirio will not suffer from untreated sleep apnea by 08/07/16 4. Pt to be able to safely perform bed mobility and transfers with family assist as needed by 08/05/16. STRATEGY TO ACHIEVE GOALS: Monitor saturations via oximetry every four hours and titrate to ordered SpO2% as indicated . Administer formulary respiratory medication to maintain PTs home regimen. Identify SOB eva y and treat with the appropriately indicated respiratory therapy. Porfirio will use their home sleep apnea device, RT will monitor Q4. Participation with therapies. RESTRAINT-RELATED GOALS: STRATEGIES TO ACHIEVE RESTRAINT GOALS: Physical Therapy Acute Initial Evaluation Note Patient Information Patient Name: Porfirio Zavala Date of : 1940 Age: 76 y.o. History Encounter Diagnoses Code Name Primary? S01.312A Laceration of left ear, initial encounter Yes S72.002A Closed left hip fracture, initial encounter ([facility]) W19.XXXA Fall, initial encounter R52 Acute pain E87.5 Hyperkalemia N18.9 CKD (chronic kidney disease), unspecified stage R52 Intractable pain E87.5 Acute hyperkalemia N18.3 Chronic kidney disease (CKD), stage 3 (moderate) J44.9 Chronic obstructive pulmonary disease, unspecified COPD type ([facility]) E11.65, Z79.4 Insulin dependent type 2 diabetes mellitus, uncontrolled ([facility]) S72.142A Intertrochanteric fracture of left hip, closed, initial encounter ([facility]) G47.33 PAOLO on CPAP Z91.89 Status post fall Z89.612 Status post above knee amputation of left lower extremity ([facility]) G54.7 Phantom limb pain ([facility]) Date of Onset: Past Medical History Diagnosis Date PAOLO (obstructive sleep apnea) On CPAP plus 4 L of oxygen at night COPD (chronic obstructive pulmonary disease) ([facility]) Diabetes mellitus, type II ([facility]) Constipation Epigastric pain Stump pain ([facility]) Renal insufficiency Obesity Iron deficiency anemia Hypertension Dyslipidemia Lower extremity embolism ([facility]) Phantom pain following amputation of lower limb ([facility]) Pain of amputation stump of left lower extremity ([facility]) Past Surgical History Procedure Laterality Date Amputation Above knee amputation of Left Lower extremity No Known Allergies EVALUATION: SUBJECTIVE: History of Presenting Problem: Porfirio Zavala is a 76 y.o. 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 Pt is s/p fall out of wheelchair with head inj ury and left ear laceration and L intertrochanteric femur fx. Per RN, Dr. Robison has seen pt and he is not a surgical candidate so Dr. Robison is asking for PT to assess pt and a ssist with discharge planning. Pt presents sitting up at the edge of the bed; agreeable to P T when he heard that it would help him to get home sooner. Says that he needs a new wheelcha ir because his manual wheelchair is old and has a sharp piece of metal sticking out that he has cut himself on once already. Pt says that he got a motorized wheelchair parish. 3 years ago but cannot safely drive it as he bumps into garcia and furniture. Daughter not present, but per d/w pt and RN, daughter will come tomorrow and bring in 02 tank and manual wheelchair. P t states agreement with contacting wheelchair reps; says that if anyone is willing to come i n on this holiday weekend, he is happy to have his info faxed over to their office. Per pt, he has gradually lost parish. 30 lbs over the past year and his manual wheelchair was already t oo big for him before that. PT Diagnosis: pain, balance deficits, generalized weakness, impaired functional mobility Impairments Found: aerobic capacity/endurance, gait, locomotion, and balance, muscle perfor leonel Previous Level of Function: Equipment Currently Used at Home: wheelchair, oxygen (pt has a power wheelchair with leg re sts but is unable to safely drive this (e.g. bumps into garcia, etc.) and an old manual wheel chair that is too large and has a sharp metal piece sticking out that he already cut himself on, so needs a new manual wc) Role/Relationships: Role Relationships Comment: Daughter is pt's caregiver and can provide 24/7 assist as neede d Living Environment/Accessibility: Lives With: child(nusrat), adult (daughter lives with pt) Home Accessibility: no concerns Number of Stairs to Enter Home: 0 Number of Stairs Within Home: 0 Financial Concerns: unable to obtain needed equipment Transportation Available: family or friend will provide (per pt, friend has a wheelchair ac cessible vehicle and he is coming tomorrow) Patient s Goals: To get home evelin and heal up; pt also states that he needs a new wheelch air in order to be safe at home. OBJECTIVE : Patient Status/Goals: Reflects last filed data of patient status; may be from multiple contributors. Transfers Bed-Chair, Level of Jessamine: minimum assist (75% patient effort), verbal cues required Chair-Bed, Level of Jessamine: minimum assist (75% patient effort), verbal cues required [id number], Assistive Device: none Impairments: strength decreased, impaired balance, pain ROM B UEs and R LE grossly WFL; L LE not tested due to recent fracture. Strength B UEs and R LE grossly WFL; L LE not tested due to recent fracture. STG GOALS Jessamine Level: minimum assist (75% patient effort) Assistive Device: none Time to Achieve: 2 days Goal Status: new Transfer Training Goal, Activity Type: bed to chair /chair to bed Jessamine Level: minimum assist (75% patient effort) Assistive Device: none Time to Achieve: 2 days Goal Status: new Assessment: Physical therapy orders received and acknowledged. Objective impairments inclu de pain, balance deficits, generalized weakness, impaired functional mobility. These impairm ents are causing functional limitations with patient s inability to independently perform bed <> wheelchair transfers. Complexities contributing to the need for skilled therapy inclu de L AKA, DM, COPD, CKD. Rehabilitation potential: Patient demonstrates good potential to achieve established goals and good potential to achieve prior status to address the documented impairments by partici pating in skilled physical therapy services. PLAN: patient/family education, balance training, bed mobility training, strengthening, transfer training Physical Therapy will follow Porfirio Zavala daily until discharge from therapy or di scharged from the hospital. Anticipated days that therapy will be provided: 08/05/16 Physical Therapy Anticipated Discharge Needs: Ongoing PT services required. DC disposition TBD. Post discharge physical therapy recommendation: home health Equipment Recommendations: wheelchair, wheelchair cushion, wheelchair components (comment) (removeable armrests) Patient and/or family has indicated understanding of treatment needs and actively participa cassi in the creation of this plan for care. Today's Treatment Start Time: 1100 Stop time: 1125 Time Calculation: 25 minutes Missed Treatment Time: minutes Total Treatment Time: 25 minutes TimedTreatment Code Minutes: minutes Objective: Treatment Provided: PT eval completed. Case d/w RN and shoe parts caser. Contacted wheelchair r ep (Petey) who says that he can come in and assess pt's current wheelchair and see what he ca n do about helping pt to get a new wheelchair. Education: Pt provided with ed re: PT POC; role of PT in acute care setting, and info re: h ow insurance may not want to get him a new manual wheelchair as he got the electric wheelcha ir 3 years ago. Assessment: Pt is able to perform bed <> chair transfer with min assist, so likely can disc harge home with daughter if she is able to provide assist as needed. However, pt does need s afe manual wheelchair that fits him, so recommend that he be seen by wheelchair rep to see w hat can be done about obtaining a safe and correctly fitting wheelchair for home use. Plan for next treatment: Plan to see pt tomorrow around 11 when daughter is coming. Wheelc hair rep (Petey) also to come in and look at pt's old wheelchair and see what he can do for p t. Electronically signed by: Lyn Dutton, PT, 08/04/2016 17:21 lan of Care - Ursula Espino RN - 08/04/2016 2:41 PM PDTProblem: Patient Care Overview (Adult) Goal: Care Team Goals & Evaluation PROBLEM-RELATED GOALS: 1. Porfirio will maintain adequate oxygenation with supplemental oxygen, and maintain an SpO2 >88% by 08/07/16 2. Breath sounds will remain consistent with baseline function throughout stay and reverse airway bronchospasm when indicated. 08/07/16 3. .Porfirio will not suffer from untreated sleep apnea by 08/07/16 STRATEGY TO ACHIEVE GOALS: Monitor saturations via oximetry every four hours and titrate to ordered SpO2% as indicated . Administer formulary respiratory medication to maintain PTs home regimen. Identify SOB eva y and treat with the appropriately indicated respiratory therapy. Porfirio will use their home sleep apnea device, RT will monitor Q4. RESTRAINT-RELATED GOALS: STRATEGIES TO ACHIEVE RESTRAINT GOALS: Outcome: Improving Goal Evaluation: pt have phantom pain to LLE. 15 mg Oxycodone given for pain. Seems to be working better fo r patient. Pt keeps pulling off dressing to ear. Ear has no drainage, redness or swelling.Pt has tried to remove arm bands and pulse ox because he wants to go home. Pt dressing to Le ft arm is CDI. Dried old drainage to elbow. Alert and oriented X 4. Has moments of forgetful ness. Pt has worked with PT and is able to stand and pivot to transfer. PT wants daughter to come in and make sure she can transfer patient safely before discharging patient. Case tana irby is working on getting patient new wheel chair due to the one he has not fitting patie nt correctly. Have spoken with daughterCharlotte multiple times educating her on his conditi on and discharge needs. Looks like discharge will be tomorrow. Daughter will be here around 11:00 and will bring home wheelchair and oxygen tank. lan of Care - Shannan galicia, Sakshi Valadez, MECHANICAL AND AUT[employer] BODY CAR CHECKER - 08/04/2016 2:17 PM PDTProblem: Discharge Planning Goal: Patient will be discharged in a safe manner Outcome: Unchanged Patient lives in [place], [place] with his daughter Charlotte. Charlotte states that she cares for h im 23/06. He is wheelchair bound but able to transfer on his own. Patient is not going to hav e any interventions done on his L hip intertrochanteric fracture after consulted by ortho. T his was relayed to Charlotte. He will be here over night for pain management. Patient needs a standard wheelchair. Charlotte states that the standard wheelchair he has is v hellen old and is "too big" for him, which is what brought him here by falling out of the wheel chair. He also has a electric wheelchair however, he is not safe using this w/c as it is rep orted that he cannot manage it inside his home (he runs into garcia, etc). Charlotte states that she would like to try and get him a manual standard wheelchair however, she is not sure if insurance will cover. This CM called [facility] in [place] and gave onion tier , Argenis, the story about this patient. Argenis states that she is going to have their tech give me a call and see what they can do. Will attempt to get a standard w/c for patient. Faxed RX and clinicals to [facility]. Awaiting a call back. Also called BAN Shen CM for [facility] and left a voicemail asking to return my call. Daughter will be here mid morning to pick and shovel worker patient. She states that if a manual w/c canno t be obtained, she will get one Friday at [facility] and "I will just be with him at all times in the w.c he has now until I can get one on Friday". Electronically sig sindy by: POLI Del Rosario 08/04/2016 14:15 Spoke with Argenis at [facility]. He will not qualify for a manual w/c as insurance [employer]donovan wolff covered a power w/c. She states that a rental would be $67.00. She will call the toni r to see if they can afford $67 for a month rental. Electronically signed by: POLI Butts 08/04/2016 14:40 Daughter saying she can't afford the $67.00. Spoke with RADHA Bazan who states that betzaida Angelo elchair specialist who works with RADHA Weldon will be in tomorrow to assess and pay be able to a uthorize/petition for a wheelchair that he is needing. Petey asking for a face sheet to be fa xed to [phone]. Faxed face sheet. Electronically signed by: POLI Del Rosario 2015 16:58 lan of C are - Ursula Betancourt RN - 08/04/2016 2:06 PM PDTSpoke with pt daughter Charlotte. She little l be here tomorrow around 11:00 to work with pt and take patient home. She will be bringing pt old javid wheelchair and oxygen tank. lan of Osito - Fernando Locke OT - 08/04/2016 8:42 AM PDTProblem: P atient Care Overview (Adult) Goal: Care Team Goals & Evaluation PROBLEM-RELATED GOALS: 1. Porfirio will maintain adequate oxygenation with supplemental oxygen, and maintain an SpO2 >88% by 08/07/16 2. Breath sounds will remain consistent with baseline function throughout stay and reverse airway bronchospasm when indicated. 08/07/16 3. .Porfirio will not suffer from untreated sleep apnea by 08/07/16 STRATEGY TO ACHIEVE GOALS: Monitor saturations via oximetry every four hours and titrate to ordered SpO2% as indicated . Administer formulary respiratory medication to maintain PTs home regimen. Identify SOB eva y and treat with the appropriately indicated respiratory therapy. Porfirio will use their home sleep apnea device, RT will monitor Q4. RESTRAINT-RELATED GOALS: STRATEGIES TO ACHIEVE RESTRAINT GOALS: Missed Visit Patient Information Patient Name: Porfirio Zavala Date of : 1940 Age: 76 y.o. The patient was unable to be seen for today's scheduled visit due to pt awaiting consult/ev al by Dr. Robison this morning. Plan: attempt eval at next appt. Electronically signed by: Fernando Locke OT, 08/04/2016 8:41 lan of Osito - Pic ventura-Sheri Armendariz RN - 08/04/2016 7:16 AM PDTProblem: Patient Care Overview (Adult) Goal: Care Team Goals & Evaluation PROBLEM-RELATED GOALS: 1. Porfirio will maintain adequate oxygenation with supplemental oxygen, and maintain an SpO2 >88% by 08/07/16 2. Breath sounds will remain consistent with baseline function throughout stay and reverse airway bronchospasm when indicated. 08/07/16 3. .Porfirio will not suffer from untreated sleep apnea by 08/07/16 STRATEGY TO ACHIEVE GOALS: Monitor saturations via oximetry every four hours and titrate to ordered SpO2% as indicated . Administer formulary respiratory medication to maintain PTs home regimen. Identify SOB eva y and treat with the appropriately indicated respiratory therapy. Porfirio will use their home sleep apnea device, RT will monitor Q4. RESTRAINT-RELATED GOALS: STRATEGIES TO ACHIEVE RESTRAINT GOALS: Outcome: Unchanged Goal Evaluation: Discharge Plan: none yet Post-Op Day: possible procedure Ricki in am Procedure: L hip fx (possible ORIF?) Surgeon: possibly Ricki; Amadou sutured L ear Drains/ Lines:none Mobility: strict bedrest Continuous Pulse Ox: yes Diabetic: yes Pain: pain management issues, managed with 1-2 mg of Dilaudid q 2 hrs Pt arrived around 0300. Skin tears/lacerations on L hand, L elbow area, and L ear Tobar di d procedure on ear tear, with sutures in place, which will need to be removed on 08/12 [facility] ivet Muhammad in [place]. Pt is alert and oriented, forgetful at times. lan of Care - Agustin Gordon RRT - 08/04/2016 3:10 AM PDT Problem: Patient Care Overview (Adult) Goal: Care Team Goals & Evaluation PROBLEM-RELATED GOALS: 1. Porfirio will maintain adequate oxygenation with supplemental oxygen, and maintain an SpO2 >88% by 08/07/16 2. Breath sounds will remain consistent with baseline function throughout stay and reverse airway bronchospasm when indicated. 08/07/16 3. .Porfirio will not suffer from untreated sleep apnea by 08/07/16 STRATEGY TO ACHIEVE GOALS: Monitor saturations via oximetry every four hours and titrate to ordered SpO2% as indicated . Administer formulary respiratory medication to maintain PTs home regimen. Identify SOB eva y and treat with the appropriately indicated respiratory therapy. Porfirio will use their home sleep apnea device, RT will monitor Q4. RESTRAINT-RELATED GOALS: STRATEGIES TO ACHIEVE RESTRAINT GOALS: Outcome: Unchanged Goal Evaluation: Porfirio SpO2 92 % on nasal cannula with humidification at flow rate 4 LPM. He was given an initial neb treatment in the ED which he refused part way through. Lung alannah nds are diminished throughout. Started on continues pulse oximetry.RT will continue to monit or and treat as indicated. Severity Score 5 Class 2 Severity Score 0-4 ITEM 0 1 2 3 4 2 Respiratory History No Smoking history Current tobacco use Up to 10 Pack year history. Simple home regimen Known Pulmonary Disease 20 pack year history Complex Home regimen 30+ pack year history Severe Pulmonary Disease or exacerbation 0 Surgery Status (current admission) No surgery Minor surgery Lower abdominal rib fractures Thoracic or uppe r abdominal Thoracic with pulmonary disease or Central Nervous System 0 Chest X-RAY Clear or Normal baseline Unavailable Improving/clearing Abnormal, Unilateral or mild Infiltrates or atelectasis, Chronic changes Infiltrates mild bilateral or unilateral or pleural effusions extensive Inf iltrates, atelectasis or pleural effusions, pneumothorax 0 Respiratory Pattern Regular pattern Respiratory Rate:8-20 Increased Respiratory Rate, labored Dyspnea on exertion, irregular pattern Use of accessory muscles, prolonged expirato ry phase nasal flaring Severe Dyspnea , Purse Lip Breathing, Use of accessory muscles 0 Breath Sounds Clear Diminished unilaterally Diminished bilaterally &/or crackles Wheezing or Rhonchi &/or absent unilateral Absent bilaterally 0 Cough Strong, non productive Moderate, loose, productive Weak, non-productive Weak, ineffective Non-spontaneous or may require suctioning 0 Sputum None Scant / Thin White/clear Moderate Beige/ yellow Large / Thick Dark Green/Brown Copious / Plugs Hemoptysis thea 1 LOC Alert, oriented, cooperative Disoriented, follows commands Obtunded, arousable, follo ws commands Obtunded, uncooperative, sedated Comatose 2 Oxygen Demand Room air Baseline 1-2 liters 3-6 liters >7 Liters Oxymizer to > 55% 60% or greater Total Severity Score (SS) Class 0-3 1 4-7 2 8-11 3 12-14 4 15+ 5 p Note - Steven Tobar MD - 08/03/2016 10:51 PM PDT [address] [id number] OPERATIVE REPORT STEVEN TOBAR MD Patient: PORFIRIO ZAVALA Admitting: LINDA Damian STEINER MR #: [id number] LOC: PT TYPE: Adm Date: 08/03/2016 : 1940 DATE OF VISIT: 08/03/2016 HISTORY: The patient is a left leg above the amputation. He gets around in a wheelchair. He does not walk on the leg and apparently was trying to read something and fell out of t he wheelchair. He fell forward and hit the corner of a coffee table and the lacerated the left ear in a complex fashion. He also hurt the left hip, and in [place] the laceration was felt to be too complex to repair in the emergency room by the emergency room physician . Also, the patient with complaint of the left hip was noted to have an intertrochanteric fracture, but nondisplaced. The patient was accepted at [facility] fo r repair of the laceration and also a consultation by orthopedics to look at his fractured hip. The patient has had evaluation of his head and does not have any intracranial bleedin g. The patient is a diabetic and is on Plavix and aspirin and the rest of his history marya t came with the patient was reviewed. No loss of consciousness that is noted. The patient currently not having any other complaints. Examination shows a 76-year-old male who is in a lot of discomfort and he is mainly compla ining of his left hip. The laceration does not seem to be giving him a lot of pain. His he ad is wrapped in a bandage. The patient is alert. He is appropriate, answers questions we ll. No other external head injuries are noted at this point. The gauze dressing was mello alexus and is noted he has a laceration at the root of his ear that goes down into the tempora lis muscle area, but stays just outside the temporalis muscle, and a laceration on the top of his ear for about an inch. It then cuts down to just above the tragus and lacerates thr ough this area and through the antihelix and then over on the lateral part of the ear, it cut into the antihelix and both of these areas that enter the antihelix cut into the cartil age. IMPRESSION: Complicated left ear laceration/complex. POSTPROCEDURE DIAGNOSIS: Complicated left ear laceration/complex. PROCEDURE PERFORMED: Repair of the left ear laceration, total length of the laceration, p art of it being [id number] the root of the ear, was 5.5 cm. SURGEON: Steven Tobar MD PROCEDURE: After the area had initially been anesthetized with 1-percent Xylocaine with e pinephrine, the wound was able to be opened. There is a flap of skin that was peeled from t he facial area just over the parotid, and the edges were trimmed to square it up so it woul d heal better. There also appeared to be a couple of inclusion tiny areas of the skin marya t were removed for the closure. The wound was then serially closed from behind the ear wit h the use of a 6-0 nylon suture to pull the ear back up against the head. The suturing was continued around to the anterior part of the laceration and out onto the face. Following this, the attachment in the root was aligned and then the skin was sutured into position an d pulled down where his cartilage enters the external auditory canal anteriorly. Suturing was then carried in the conchal bowl all the way around to the antihelix on the back of the ear, and in this area skin was also pulled down to pull the cartilage into position and t his also was sewed with interrupted 6-0 nylon suture. Once the anatomical appearance of the ear was back to normal and all wounds were closed, all the excess blood was cleaned from t he ear and also into the external auditory canal. Once completed, a 4 x 4 was placed behind the ear and then about 3 in front of the ear, an d then a head dressing was applied after some antibiotic had been applied to the wound. Th e patient is to keep the dressing on for 24 hours. After that some antibiotics should be a pplied on a daily basis to the wound. He should have the sutures removed in 9 days, and t his could be carried out down in [place] with Dr. Muhammad to save a long trip up to this area a week from Friday when they should be removed. They can call our office and arrange ments will be made for removal of the sutures if not able to do it down in the [facility]. The estimated blood loss from the current part was around 1-2 mL. The prognosis of th is area immediate and remote is good. STEVEN TOBAR MD Dictated by STEVEN TOBAR MD 08/03/2016 22:51:04 Transcribed on 08/04/2016 05:51:45 by blessing job# [id number] Confirmation #: [id number] cc: HARDIK COYNE MD D Triage Notes - Jose Calhoun RN - 08/03/2016 8:05 PM PDTPatient [facility] [place] [facility] that needs to be sutured by ENT. Patient arrives with gauze dressing in place on head and ear, and dressing on left e lbow. Patient A&O docu mented in this encounter Plan of Treatment +--------+ + + + + | Date | Type | Specialty | Care Team | Description | +--------+ + + + + | 06/19/ | Office | Pulmonology | Alina Frias | | | 2019 | Visit | | MD Daniel [address] | | | | | [facility] | | | | | | [place] [address] | | | | | | [phone] | | | | | | | | +--------+ + + + + | 08/09/ | Virtual | Nephrology | Farrukh Acuna MD | | | 2019 | Office | | [address] [facility] | | | | Visit | | [address] [facility] [place] | | | | | | [address] | | | | | | | | +--------+ + + + + + +------+--------+ + + | Name | Type | Priori | Associated Diagnoses | Order Schedule | | | | ty | | | + +------+--------+ + + | DME: Wheelchair | DME | Routin | Intertrochanteric | DME 1 Time for 1 | | | | e | fracture of left | Occurrences starting | | | | | hip, closed, initial | 08/04/2016 until | | | | | encounter ([facility]) | 08/04/2016 | | | | | Status post above | | | | | | knee amputation of | | | | | | left lower extremity | | | | | | (HCC) | | + +------+--------+ + + | DME: Walker | DME | Routin | Closed left hip | Ordered: 08/05/2016 | | | | e | fracture, initial | | | | | | encounter (HCC) | | | | | | Status post above | | | | | | knee amputation of | | | | | | left lower extremity | | | | | | ([facility]) | | + +------+--------+ + + documented as of this encounter Procedures + +--------+ + + + | Procedure Name | Priori | Date/Time | Associated Diagnosis | Comments | | | ty | | | | + +--------+ + + + | POC GLUCOSE | Routin | 08/05/2016 | | Results for this | | | e | 12:00 PM | | procedure are in the | | | | PDT | | results section. | + +--------+ + + + | CBC WITH | Routin | 08/05/2016 | | Results for this | | DIFFERENTIAL | e | 6:44 AM | | procedure are in the | | | | PDT | | results section. | + +--------+ + + + | PHOSPHORUS | Routin | 08/05/2016 | | Results for this | | | e | 6:44 AM | | procedure are in the | | | | PDT | | results section. | + +--------+ + + + | MAGNESIUM | Routin | 08/05/2016 | | Results for this | | | e | 6:44 AM | | procedure are in the | | | | PDT | | results section. | + +--------+ + + + | COMPREHENSIVE | Routin | 08/05/2016 | | Results for this | | METABOLIC PANEL | e | 6:44 AM | | procedure are in the | | | | PDT | | results section. | + +--------+ + + + | POC GLUCOSE | Routin | 08/04/2016 | | Results for this | | | e | 9:18 PM | | procedure are in the | | | | PDT | | results section. | + +--------+ + + + | POC GLUCOSE | Routin | 08/04/2016 | | Results for this | | | e | 5:30 PM | | procedure are in the | | | | PDT | | results section. | + +--------+ + + + | POC GLUCOSE | Routin | 08/04/2016 | | Results for this | | | e | 12:00 PM | | procedure are in the | | | | PDT | | results section. | + +--------+ + + + | PROTIME INR | Routin | 08/04/2016 | | Results for this | | | e | 5:32 AM | | procedure are in the | | | | PDT | | results section. | + +--------+ + + + | CBC WITH | Routin | 08/04/2016 | | Results for this | | DIFFERENTIAL | e | 5:32 AM | | procedure are in the | | | | PDT | | results section. | + +--------+ + + + | MAGNESIUM | Routin | 08/04/2016 | | Results for this | | | e | 5:32 AM | | procedure are in the | | | | PDT | | results section. | + +--------+ + + + | BASIC METABOLIC | Routin | 08/04/2016 | | Results for this | | PANEL | e | 5:32 AM | | procedure are in the | | | | PDT | | results section. | + +--------+ + + + | URINALYSIS WITH | Routin | 08/03/2016 | | Results for this | | MICROSCOPIC WITH | e | 11:54 PM | | procedure are in the | | CULTURE IF INDICATED | | PDT | | results section. | + +--------+ + + + | ECG 12 LEAD | STAT | 08/03/2016 | | Results for this | | | | 10:45 PM | | procedure are in the | | | | PDT | | results section. | + +--------+ + + + | EXTRA LAVENDER TOP | Routin | 08/03/2016 | | Results for this | | TUBE | e | 9:07 PM | | procedure are in the | | | | PDT | | results section. | + +--------+ + + + | EXTRA GREEN TOP TUBE | Routin | 08/03/2016 | | Results for this | | | e | 9:07 PM | | procedure are in the | | | | PDT | | results section. | + +--------+ + + + | EXTRA GOLD TOP TUBE | Routin | 08/03/2016 | | Results for this | | | e | 9:07 PM | | procedure are in the | | | | PDT | | results section. | + +--------+ + + + | EXTRA BLUE TOP TUBE | Routin | 08/03/2016 | | Results for this | | | e | 9:07 PM | | procedure are in the | | | | PDT | | results section. | + +--------+ + + + | CBC WITH | STAT | 08/03/2016 | | Results for this | | DIFFERENTIAL | | 9:07 PM | | procedure are in the | | | | PDT | | results section. | + +--------+ + + + | BASIC METABOLIC | STAT | 08/03/2016 | | Results for this | | PANEL | | 9:07 PM | | procedure are in the | | | | PDT | | results section. | + +--------+ + + + | IMAGING REPORT - | | 08/03/2016 | | Results for this | | EXTERNAL SCAN | | 12:00 AM | | procedure are in the | | | | PDT | | results section. | + +--------+ + + + | IMAGING REPORT - | | 08/03/2016 | | Results for this | | EXTERNAL SCAN | | 12:00 AM | | procedure are in the | | | | PDT | | results section. | + +--------+ + + + | IMAGING REPORT - | | 08/03/2016 | | Results for this | | EXTERNAL SCAN | | 12:00 AM | | procedure are in the | | | | PDT | | results section. | + +--------+ + + + | IMAGING REPORT - | | 08/03/2016 | | Results for this | | EXTERNAL SCAN | | 12:00 AM | | procedure are in the | | | | PDT | | results section. | + +--------+ + + + | LABS - EXTERNAL SCAN | | 08/03/2016 | | Results for this | | | | 12:00 AM | | procedure are in the | | | | PDT | | results section. | + +--------+ + + + | ECG - EXTERNAL SCAN | | 08/03/2016 | | Results for this | | | | 12:00 AM | | procedure are in the | | | | PDT | | results section. | + +--------+ + + + documented in this encounter Results POC Glucose (08/05/2016 12:00 PM PDT) + +---------+ + + + | Component | Value | Ref Range | Performed | Pathologist | | | | | At | Signature | + +---------+ + + + | Glucose, | 259 (H) | 70 - 150 mg/dL | [facility] | | | POC | | | [facility] | | | | | [facility] | | | | | | [facility] - | | | | | | LABORATORY | | + +---------+ + + + + + | Specimen | + + | Blood | + + + + + + + | Performing | Address | City/State/Zipcode | Phone Number | | Organization | | | | + + + + + | [facility] | [address] | [place] | [phone] | | [facility] | | [address] | | | - LABORATORY | | | | + + + + + Comprehensive Metabolic Panel (08/05/2016 6:44 AM PDT) + + + + + + | Component | Value | Ref Range | Performed | Pathologist | | | | | At | Signature | + + + + + + | Na | 137 | 136 - 149 | [facility] | | | | | mmol/L | [facility] | | | | | | [facility] | | | | | | C[facility] - | | | | | | LABORATORY | | + + + + + + | K | 4.9 | 3.5 - 5.1 | [facility] | | | | | mmol/L | [facility] | | | | | | [facility] | | | | | | C[facility] - | | | | | | LABORATORY | | + + + + + + | Cl | 103 | 98 - 109 mmol/L | [facility] | | | | | | [facility] | | | | | | [facility] | | | | | | C[facility] - | | | | | | LABORATORY | | + + + + + + | CO2 | 26 | 24 - 31 mmol/L | [facility] | | | | | | [facility] | | | | | | [facility] | | | | | | [facility] - | | | | | | LABORATORY | | + + + + + + | Anion Gap | 8 | 3 - 16 mmol/L | [facility] | | | | | | [facility] | | | | | | [facility] | | | | | | [facility] - | | | | | | LABORATORY | | + + + + + + | Glucose | 127 (H) | 70 - 109 mg/dL | [facility] | | | | | | [facility] | | | | | | [facility] | | | | | | [facility] - | | | | | | LABORATORY | | + + + + + + | BUN | 35 (H) | 7 - 18 mg/dL | [facility] | | | | | | [facility] | | | | | | [facility] | | | | | | C[facility] - | | | | | | LABORATORY | | + + + + + + | Creatinine | 1.80 (H) | 0.60 - 1.30 | [facility] | | | | | mg/dL | [facility] | | | | | | [facility] | | | | | | CENTER - | | | | | | LABORATORY | | + + + + + + | eGFR if not | 37 (L)Comment: | >=60 | [facility] | | | | GLOMERULAR FILTRATION | mL/min/1.73m2 | [facility] | | | [place] | RATE,ESTIMATED | | MEDICAL | | | | mL/min/1.99g6Wamq than | | CENTER - | | | | 60 Chronic kidney | | LABORATORY | | | | disease,if found over a | | | | | | 3-month period.Less than | | | | | | 15 Kidney failureFor | | | | | | | | | | | | Americans,multiply the | | | | | | calculated GFR by 1.21. | | | | | | | | | | + + + + + + | Calcium | 8.3 | 8.3 - 10.5 | [facility] | | | | | mg/dL | [facility] | | | [facility] | | [facility] | | | | | | CENTER - | | | | | | LABORATORY | | + + + + + + | Albumin | 2.8 (L) | 3.2 - 5.0 g/dL | [facility] | | | | | | [facility] | | | | | | [facility] | | | | | | C[facility] - | | | | | | LABORATORY | | + + + + + + | Bilirubin | 0.7 | 0.1 - 1.5 mg/dL | [facility] | | | Total | | | [facility] | | | | | | [facility] | | | | | | CENTER - | | | | | | LABORATORY | | + + + + + + | Total | 5.8 (L) | 6.0 - 7.8 g/dL | [facility] | | | Protein | | | [facility] | | | | | | [facility] | | | | | | CENTER - | | | | | | LABORATORY | | + + + + + + | AST | 26 | 10 - 42 U/L | [facility] | | | | | | [facility] | | | | | | [facility] | | | | | | CENTER - | | | | | | LABORATORY | | + + + + + + | ALT | 44 | 6 - 45 U/L | [facility] | | | | | | [facility] | | | | | | [facility] | | | | | | CENTER - | | | | | | LABORATORY | | + + + + + + | Alkaline | 96 | 40 - 110 U/L | [facility] | | | Phosphatase | | | [facility] | | | | | | [facility] | | | | | | CENTER - | | | | | | LABORATORY | | + + + + + + | Globulin | 3.0 | 2.1 - 3.8 g/dL | [facility] | | | | | | [facility] | | | | | | [facility] | | | | | | CENTER - | | | | | | LABORATORY | | + + + + + + | Albumin/Becca | 0.9 | 0.8 - 2.0 | [facility] | | | bulin Ratio | | | [facility] | | | | | | MEDICAL | | | | | | CENTER - | | | | | | LABORATORY | | + + + + + + | BUN/Creatin | 19.4 | | [facility] | | | ine Ratio | | | [facility] | | | | | | [facility] | | | | | | CENTER - | | | | | | LABORATORY | | + + + + + + + + | Specimen | + + | Blood | + + + + + + + | Performing | Address | City/State/Zipcode | Phone Number | | Organization | | | | + + + + + | [facility] | [address] | [place] | [phone] | | [facility] | | [address] | | | - LABORATORY | | | | + + + + + CBC with Differential (08/05/2016 6:44 AM PDT) + + + + + + | Component | Value | Ref Range | Performed | Pathologist | | | | | At | Signature | + + + + + + | White Blood | 10.9 | 4.0 - 11.0 K/uL | [facility] | | | Cells | | | [facility] | | | | | | [facility] | | | | | | CENTER - | | | | | | LABORATORY | | + + + + + + | Red Blood | 3.18 (L) | 4.30 - 5.70 | [facility] | | | Cells | | M/uL | [facility] | | | | | | MED[facility] | | | | | | CENTER - | | | | | | LABORATORY | | + + + + + + | Hemoglobin | 9.9 (L) | 13.5 - 18.0 | [facility] | | | | | g/dL | [facility] | | | | | | [facility] | | | | | | CENTER - | | | | | | LABORATORY | | + + + + + + | Hematocrit | 29.2 (L) | 40.0 - 51.0 % | [facility] | | | | | | [facility] | | | | | | [facility] | | | | | | C[facility] - | | | | | | LABORATORY | | + + + + + + | MCV | 91.8 | 83.0 - 101.0 fL | [facility] | | | | | | [facility] | | | | | | [facility] | | | | | | C[facility] - | | | | | | LABORATORY | | + + + + + + | MCH | 31.1 | 28.0 - 35.0 pg | [facility] | | | | | | [facility] | | | | | | [facility] | | | | | | C[facility] - | | | | | | LABORATORY | | + + + + + + | MCHC | 33.8 | 32.0 - 36.0 | [facility] | | | | | g/dL | [facility] | | | | | | [facility] | | | | | | C[facility] - | | | | | | LABORATORY | | + + + + + + | RDW-CV | 14.7 | <15.0 % | [facility] | | | | | | [facility] | | | | | | [facility] | | | | | | CENTER - | | | | | | LABORATORY | | + + + + + + | Platelet | 226 | 140 - 440 K/uL | [facility] | | | Count | | | [facility] | | | | | | [facility] | | | | | | CENTER - | | | | | | LABORATORY | | + + + + + + | MPV | 8.2 | fL | [facility] | | | | | | [facility] | | | | | | [facility] | | | | | | CENTER - | | | | | | LABORATORY | | + + + + + + | % | 71.2 | 45.0 - 82.0 % | [facility] | | | Neutrophils | | | [facility] | | | | | | MEDICAL | | | | | | CENTER - | | | | | | LABORATORY | | + + + + + + | % | 11.0 (L) | 20.0 - 45.0 % | [facility] | | | Lymphocytes | | | [facility] | | | | | | MEDICAL | | | | | | CENTER - | | | | | | LABORATORY | | + + + + + + | % Monocytes | 9.9 | 4.0 - 12.0 % | [facility] | | | | | | [facility] | | | | | | [facility]ICAL | | | | | | CENTER - | | | | | | LABORATORY | | + + + + + + | % | 7.1 (H) | 0.0 - 5.0 % | [facility] | | | Eosinophils | | | [facility] | | | | | | MEDICAL | | | | | | CENTER - | | | | | | LABORATORY | | + + + + + + | % Basophils | 0.8 | 0.0 - 1.0 % | [facility] | | | | | | [facility] | | | | | | [facility]ICAL | | | | | | CENTER - | | | | | | LABORATORY | | + + + + + + | Absolute | 7.80 | 1.80 - 8.50 | [facility] | | | Neutrophils | | K/uL | [facility] | | | | | | [facility]ICAL | | | | | | CENTER - | | | | | | LABORATORY | | + + + + + + | Absolute | 1.20 | 0.60 - 3.20 | [facility] | | | Lymphocytes | | K/uL | [facility] | | | | | | MED[facility] | | | | | | CENTER - | | | | | | LABORATORY | | + + + + + + | Absolute | 1.10 (H) | 0.00 - 1.00 | [facility] | | | Monocytes | | K/uL | [facility] | | | | | | MEDICAL | | | | | | CENTER - | | | | | | LABORATORY | | + + + + + + | Absolute | 0.80 (H) | 0.00 - 0.40 | [facility] | | | Eosinophils | | K/uL | [facility] | | | | | | MEDICAL | | | | | | CENTER - | | | | | | LABORATORY | | + + + + + + | Absolute | 0.10 | 0.00 - 0.10 | [facility] | | | Basophils | | K/uL | [facility] | | | | | | MEDICAL | | | | | | CENTER - | | | | | | LABORATORY | | + + + + + + + + | Specimen | + + | Blood | + + + + + + + | Performing | Address | City/State/Zipcode | Phone Number | | Organization | | | | + + + + + | [facility] | [address] | [place] | [phone] | | [facility] | | [address] | | | - LABORATORY | | | | + + + + + Phosphorus (08/05/2016 6:44 AM PDT) + +-------+ + + + | Component | Value | Ref Range | Performed | Pathologist | | | | | At | Signature | + +-------+ + + + | Phosphorus | 4.2 | 2.5 - 4.6 mg/dL | [facility] | | | | | | [facility] | | | | | | MEDICAL | | | | | | CENTER - | | | | | | LABORATORY | | + +-------+ + + + + + | Specimen | + + | Blood | + + + + + + + | Performing | Address | City/State/Zipcode | Phone Number | | Organization | | | | + + + + + | [facility] | [address] | [place] | [phone] | | [facility] | | [address] | | | - LABORATORY | | | | + + + + + Magnesium (08/05/2016 6:44 AM PDT) + +---------+ + + + | Component | Value | Ref Range | Performed | Pathologist | | | | | At | Signature | + +---------+ + + + | Magnesium | 2.7 (H) | 1.8 - 2.5 mg/dL | [facility] | | | | | | [facility] | | | | | | MEDICAL | | | | | | CENTER - | | | | | | LABORATORY | | + +---------+ + + + + + | Specimen | + + | Blood | + + + + + + + | Performing | Address | City/State/Zipcode | Phone Number | | Organization | | | | + + + + + | [facility] | [address] | [place] | [phone] | | [facility] | | [address] | | | - LABORATORY | | | | + + + + + POC Glucose (08/04/2016 9:18 PM PDT) + +---------+ + + + | Component | Value | Ref Range | Performed | Pathologist | | | | | At | Signature | + +---------+ + + + | Glucose, | 182 (H) | 70 - 150 mg/dL | [facility] | | | POC | | | [facility] | | | | | | MEDICAL | | | | | | CENTER - | | | | | | LABORATORY | | + +---------+ + + + + + | Specimen | + + | Blood | + + + + + + + | Performing | Address | City/State/Zipcode | Phone Number | | Organization | | | | + + + + + | [facility] | [address] | [place], [place] | [phone] | | [facility] | | [address] | | | - LABORATORY | | | | + + + + + POC Glucose (08/04/2016 5:30 PM PDT) + +---------+ + + + | Component | Value | Ref Range | Performed | Pathologist | | | | | At | Signature | + +---------+ + + + | Glucose, | 174 (H) | 70 - 150 mg/dL | [facility] | | | POC | | | [facility] | | | | | | [facility] | | | | | | CENTER - | | | | | | LABORATORY | | + +---------+ + + + + + | Specimen | + + | Blood | + + + + + + + | Performing | Address | City/State/Zipcode | Phone Number | | Organization | | | | + + + + + | [facility] | [address] | [place] | [phone] | | [facility] | | [address] | | | - LABORATORY | | | | + + + + + POC Glucose (08/04/2016 12:00 PM PDT) + +---------+ + + + | Component | Value | Ref Range | Performed | Pathologist | | | | | At | Signature | + +---------+ + + + | Glucose, | 304 (H) | 70 - 150 mg/dL | [facility] | | | POC | | | [facility] | | | | | | MEDICAL | | | | | | CENTER - | | | | | | LABORATORY | | + +---------+ + + + + + | Specimen | + + | Blood | + + + + + + + | Performing | Address | City/State/Zipcode | Phone Number | | Organization | | | | + + + + + | [facility] | [address] | [place] | [phone] | | [facility] | | [address] | | | - LABORATORY | | | | + + + + + Protime INR (08/04/2016 5:32 AM PDT) + + + + + + | Component | Value | Ref Range | Performed | Pathologist | | | | | At | Signature | + + + + + + | Prothrombin | 14.6 (H) | 11.3 - 13.9 | [facility] | | | Time | | seconds | [facility] | | | | | | MEDICAL | | | | | | CENTER - | | | | | | LABORATORY | | + + + + + + | INR | 1.09Comment: Usual Oral | 0.90 - 1.10 | [facility] | | | | Anticoagulation Range: | | [facility] | | | | 2.0 - 3.0High | | MEDICAL | | | | Level Oral | | CENTER - | | | | Anticoagulation Range: | | LABORATORY | | | | 2.5 - 3.5 | | | | + + + + + + + + | Specimen | + + | Blood | + + + + + + + | Performing | Address | City/State/Zipcode | Phone Number | | Organization | | | | + + + + + | [facility] | [address] | [place] | [phone] | | [facility] | | [address] | | | - LABORATORY | | | | + + + + + Magnesium (08/04/2016 5:32 AM PDT) + +---------+ + + + | Component | Value | Ref Range | Performed | Pathologist | | | | | At | Signature | + +---------+ + + + | Magnesium | 2.9 (H) | 1.8 - 2.5 mg/dL | [facility] | | | | | | [facility] | | | | | | MEDICAL | | | | | | CENTER - | | | | | | LABORATORY | | + +---------+ + + + + + | Specimen | + + | Blood | + + + + + + + | Performing | Address | City/State/Zipcode | Phone Number | | Organization | | | | + + + + + | [facility] | [address] | [place] | [phone] | | [facility] | | [address] | | | - LABORATORY | | | | + + + + + CBC with Differential (08/04/2016 5:32 AM PDT) + + + + + + | Component | Value | Ref Range | Performed | Pathologist | | | | | At | Signature | + + + + + + | White Blood | 9.3 | 4.0 - 11.0 K/uL | [facility] | | | Cells | | | [facility] | | | | | | MEDICAL | | | | | | CENTER - | | | | | | LABORATORY | | + + + + + + | Red Blood | 3.19 (L) | 4.30 - 5.70 | [facility] | | | Cells | | M/uL | [facility] | | | | | | MEDICAL | | | | | | CENTER - | | | | | | LABORATORY | | + + + + + + | Hemoglobin | 9.9 (L) | 13.5 - 18.0 | [facility] | | | | | g/dL | [facility] | | | | | | MEDICAL | | | | | | CENTER - | | | | | | LABORATORY | | + + + + + + | Hematocrit | 29.2 (L) | 40.0 - 51.0 % | [facility] | | | | | | [facility] | | | | | | MEDICAL | | | | | | CENTER - | | | | | | LABORATORY | | + + + + + + | MCV | 91.5 | 83.0 - 101.0 fL | [facility] | | | | | | [facility] | | | | | | MEDICAL | | | | | | CENTER - | | | | | | LABORATORY | | + + + + + + | MCH | 30.9 | 28.0 - 35.0 pg | [facility] | | | | | | [facility] | | | | | | MEDICAL | | | | | | CENTER - | | | | | | LABORATORY | | + + + + + + | MCHC | 33.7 | 32.0 - 36.0 | [facility] | | | | | g/dL | [facility] | | | | | | MEDICAL | | | | | | CENTER - | | | | | | LABORATORY | | + + + + + + | RDW-CV | 14.3 | <15.0 % | [facility] | | | | | | [facility] | | | | | | MEDICAL | | | | | | CENTER - | | | | | | LABORATORY | | + + + + + + | Platelet | 251 | 140 - 440 K/uL | [facility] | | | Count | | | [facility] | | | | | | MEDICAL | | | | | | CENTER - | | | | | | LABORATORY | | + + + + + + | MPV | 8.0 | fL | [facility] | | | | | | [facility] | | | | | | MEDICAL | | | | | | CENTER - | | | | | | LABORATORY | | + + + + + + | % | 73.2 | 45.0 - 82.0 % | [facility] | | | Neutrophils | | | [facility] | | | | | | MEDICAL | | | | | | CENTER - | | | | | | LABORATORY | | + + + + + + | % | 12.1 (L) | 20.0 - 45.0 % | [facility] | | | Lymphocytes | | | [facility] | | | | | | MEDICAL | | | | | | CENTER - | | | | | | LABORATORY | | + + + + + + | % Monocytes | 11.7 | 4.0 - 12.0 % | [facility] | | | | | | [facility] | | | | | | MEDICAL | | | | | | CENTER - | | | | | | LABORATORY | | + + + + + + | % | 2.4 | 0.0 - 5.0 % | [facility] | | | Eosinophils | | | [facility] | | | | | | MEDICAL | | | | | | CENTER - | | | | | | LABORATORY | | + + + + + + | % Basophils | 0.6 | 0.0 - 1.0 % | [facility] | | | | | | [facility] | | | | | | MEDICAL | | | | | | CENTER - | | | | | | LABORATORY | | + + + + + + | Absolute | 6.80 | 1.80 - 8.50 | [facility] | | | Neutrophils | | K/uL | [facility] | | | | | | MEDICAL | | | | | | CENTER - | | | | | | LABORATORY | | + + + + + + | Absolute | 1.10 | 0.60 - 3.20 | [facility] | | | Lymphocytes | | K/uL | [facility] | | | | | | MEDICAL | | | | | | CENTER - | | | | | | LABORATORY | | + + + + + + | Absolute | 1.10 (H) | 0.00 - 1.00 | [facility] | | | Monocytes | | K/uL | [facility] | | | | | | MEDICAL | | | | | | CENTER - | | | | | | LABORATORY | | + + + + + + | Absolute | 0.20 | 0.00 - 0.40 | [facility] | | | Eosinophils | | K/uL | [facility] | | | | | | MEDICAL | | | | | | CENTER - | | | | | | LABORATORY | | + + + + + + | Absolute | 0.10 | 0.00 - 0.10 | [facility] | | | Basophils | | K/uL | [facility] | | | | | | MEDICAL | | | | | | CENTER - | | | | | | LABORATORY | | + + + + + + + + | Specimen | + + | Blood | + + + + + + + | Performing | Address | City/State/Zipcode | Phone Number | | Organization | | | | + + + + + | [facility] | [address] | [place], [place] | [phone] | | [facility] | | [address] | | | - LABORATORY | | | | + + + + + Basic Metabolic Panel (08/04/2016 5:32 AM PDT) + + + + + + | Component | Value | Ref Range | Performed | Pathologist | | | | | At | Signature | + + + + + + | Na | 135 (L) | 136 - 149 | [facility] | | | | | mmol/L | [facility] | | | | | | MEDICAL | | | | | | CENTER - | | | | | | LABORATORY | | + + + + + + | K | 5.4 (H) | 3.5 - 5.1 | [facility] | | | | | mmol/L | [facility] | | | | | | MEDICAL | | | | | | CENTER - | | | | | | LABORATORY | | + + + + + + | Cl | 103 | 98 - 109 mmol/L | [facility] | | | | | | [facility] | | | | | | MEDICAL | | | | | | CENTER - | | | | | | LABORATORY | | + + + + + + | CO2 | 25 | 24 - 31 mmol/L | [facility] | | | | | | [facility] | | | | | | MEDICAL | | | | | | CENTER - | | | | | | LABORATORY | | + + + + + + | Anion Gap | 7 | 3 - 16 mmol/L | [facility] | | | | | | [facility] | | | | | | MEDICAL | | | | | | CENTER - | | | | | | LABORATORY | | + + + + + + | Glucose | 162 (H) | 70 - 109 mg/dL | [facility] | | | | | | [facility] | | | | | | MEDICAL | | | | | | CENTER - | | | | | | LABORATORY | | + + + + + + | BUN | 39 (H) | 7 - 18 mg/dL | [facility] | | | | | | [facility] | | | | | | [facility] | | | | | | CENTER - | | | | | | LABORATORY | | + + + + + + | Creatinine | 2.09 (H) | 0.60 - 1.30 | [facility] | | | | | mg/dL | [facility] | | | | | | MEDICAL | | | | | | CENTER - | | | | | | LABORATORY | | + + + + + + | eGFR if not | 31 (L)Comment: | >=60 | [facility] | | | | GLOMERULAR FILTRATION | mL/min/1.73m2 | [facility] | | | [place] | RATE,ESTIMATED | | MEDICAL | | | | mL/min/1.00i1Fmoi than | | CENTER - | | | | 60 Chronic kidney | | LABORATORY | | | | disease,if found over a | | | | | | 3-month period.Less than | | | | | | 15 Kidney failureFor | | | | | | | | | | | | Americans,multiply the | | | | | | calculated GFR by 1.21. | | | | | | | | | | + + + + + + | Calcium | 8.1 (L) | 8.3 - 10.5 | [facility] | | | | | mg/dL | [facility] | | | | | | MEDICAL | | | | | | CENTER - | | | | | | LABORATORY | | + + + + + + | BUN/Creatin | 18.7 | | [facility] | | | ine Ratio | | | [facility] | | | | | | MED[facility] | | | | | | CENTER - | | | | | | LABORATORY | | + + + + + + + + | Specimen | + + | Blood | + + + + + + + | Performing | Address | City/State/Zipcode | Phone Number | | Organization | | | | + + + + + | [facility] | [address] | [place] | [phone] | | [facility] | | [address] | | | - LABORATORY | | | | + + + + + Urinalysis with Microscopic with Culture if Indicated (08/03/2016 11:54 PM PDT) + + + + + + | Component | Value | Ref Range | Performed | Pathologist | | | | | At | Signature | + + + + + + | Color, | Yellow | Light Yellow, | [facility] | | | Urine | | Yellow, Straw | [facility] | | | | | | [facility] | | | | | | CENTER - | | | | | | LABORATORY | | + + + + + + | Clarity, | Clear | Clear | [facility] | | | Urine | | | [facility] | | | | | | [facility] | | | | | | CENTER - | | | | | | LABORATORY | | + + + + + + | pH, Urine | 5.0 | 5.0 - 8.0 | [facility] | | | | | | [facility] | | | | | | [facility] | | | | | | CENTER - | | | | | | LABORATORY | | + + + + + + | Specific | 1.015 | 1.001 - 1.030 | [facility] | | | [place], | | | [facility] | | | Urine | | | MEDICAL | | | | | | CENTER - | | | | | | LABORATORY | | + + + + + + | Protein, | 100 mg/dL (A) | Negative | [facility] | | | Urine | | | [facility] | | | | | | [facility] | | | | | | CENTER - | | | | | | LABORATORY | | + + + + + + | Blood, | Negative | Negative | [facility] | | | Urine | | | [facility] | | | | | | [facility]ICAL | | | | | | CENTER - | | | | | | LABORATORY | | + + + + + + | Glucose, | 150 mg/dL (A) | Negative | [facility] | | | Urine | | | [facility] | | | | | | [facility] | | | | | | CENTER - | | | | | | LABORATORY | | + + + + + + | Ketones, | Negative | Negative | [facility] | | | Urine | | | [facility] | | | | | | [facility]ICAL | | | | | | CENTER - | | | | | | LABORATORY | | + + + + + + | Bilirubin, | Negative | Negative | [facility] | | | Urine | | | [facility] | | | | | | [facility] | | | | | | CENTER - | | | | | | LABORATORY | | + + + + + + | Nitrite, | Negative | Negative | [facility] | | | Urine | | | [facility] | | | | | | MEDICAL | | | | | | CENTER - | | | | | | LABORATORY | | + + + + + + | Leukocyte | Negative | Negative | [facility] | | | Esterase, | | | [facility] | | | Urine | | | MEDICAL | | | | | | CENTER - | | | | | | LABORATORY | | + + + + + + | Urobilinoge | Negative | 0.2 mg/dL, 1.0 | [facility] | | | n, Urine | | mg/dL, Negative | [facility] | | | | | | MEDICAL | | | | | | CENTER - | | | | | | LABORATORY | | + + + + + + | White Blood | 0-2 | 0 - 2 /HPF | [facility] | | | Cells, | | | [facility] | | | Urine | | | MEDICAL | | | | | | CENTER - | | | | | | LABORATORY | | + + + + + + | Red Blood | 0-2 | 0 - 2 /HPF | [facility] | | | Cells, | | | [facility] | | | Urine | | | MEDICAL | | | | | | CENTER - | | | | | | LABORATORY | | + + + + + + | Squamous | 0-2 | 0 - 2 /LPF | [facility] | | | Epithelial | | | [facility] | | | Cells, | | | MEDICAL | | | Urine | | | CENTER - | | | | | | LABORATORY | | + + + + + + | Bacteria, | Negative | Negative /HPF | [facility] | | | Urine | | | [facility] | | | | | | MEDICAL | | | | | | CENTER - | | | | | | LABORATORY | | + + + + + + | Mucus, | Present (A) | Negative /LPF | [facility] | | | Urine | | | [facility] | | | | | | MEDICAL | | | | | | CENTER - | | | | | | LABORATORY | | + + + + + + | Urine | Urine Culture Not | | [facility] | | | Comment | Indicated | | [facility] | | | | | | MEDICAL | | | | | | CENTER - | | | | | | LABORATORY | | + + + + + + + + | Specimen | + + | Urine - Urine | | specimen obtained by | | clean catch | | procedure (specimen) | + + + + + + + | Performing | Address | City/State/Zipcode | Phone Number | | Organization | | | | + + + + + | [facility] | [address] | [place] | [phone] | | [facility] | | [address] | | | - LABORATORY | | | | + + + + + ECG 12 lead (08/03/2016 10:45 PM PDT) + + + + + + | Component | Value | Ref Range | Performed | Pathologist | | | | | At | Signature | + + + + + + | VENTRICULAR | 78 | BPM | [facility] | | | RATE EKG | | | | | + + + + + + | ATRIAL RATE | 78 | BPM | [facility] | | + + + + + + | P-R | 168 | ms | [facility] | | | INTERVAL | | | | | + + + + + + | QRS | 100 | ms | [facility] | | | DURATION | | | | | + + + + + + | Q-T | 374 | ms | [facility] | | | INTERVAL | | | | | + + + + + + | Q-T | 426 | ms | [facility] | | | INTERVAL | | | | | | (CORRECTED) | | | | | + + + + + + | P WAVE AXIS | 3 | degrees | [facility] | | + + + + + + | QRS AXIS | 50 | degrees | [facility] | | + + + + + + | T AXIS | 49 | degrees | [facility] | | + + + + + + | INTERPRETAT | Normal sinus | | [facility] | | | ION TEXT | rhythmNormal ECGNo | | | | | | previous ECGs | | | | | | availableConfirmed by | | | | | | AYAH RON MD ([id number]) | | | | | | on 08/05/2016 8:34:11 AM | | | | + + + + + + + + | Specimen | + + | | + + + + + | Narrative | Performed At | + + + | | | + + + + +---------+ + + | Performing | Address | City/State/Zipcode | Phone Number | | Organization | | | | + +---------+ + + | [facility] | | | | + +---------+ + + CBC with Differential (08/03/2016 9:07 PM PDT) + + + + + + | Component | Value | Ref Range | Performed | Pathologist | | | | | At | Signature | + + + + + + | White Blood | 13.6 (H) | 4.0 - 11.0 K/uL | [facility] | | | Cells | | | [facility] | | | | | [facility] | | | [facility] - | | | | | | [facility]ORY | | + + + + + + | Red Blood | 3.65 (L) | 4.30 - 5.70 | [facility] | | | Cells | | M/uL | [facility] | | | | | | [facility] | | | | | | [facility] - | | | | | | LAB[facility]ATORY | | + + + + + + | Hemoglobin | 11.1 (L) | 13.5 - 18.0 | [facility] | | | | | g/dL | [facility] | | | | | | [facility] | | | | | | [facility] - | | | | | | LAB[facility]ATORY | | + + + + + + | Hematocrit | 33.0 (L) | 40.0 - 51.0 % | [facility] | | | | | | [facility] | | | | | | [facility] | | | | | [facility] - | | | | | | [facility]ORY | | + + + + + + | MCV | 90.6 | 83.0 - 101.0 fL | [facility] | | | | | | [facility] | | | [facility] | [facility] | | | | [facility] - | | | | | | [facility]ORY | | + + + + + + | MCH | 30.5 | 28.0 - 35.0 pg | [facility] | | | | | | [facility] | | | | | | [facility] | | | | [facility] - | | | | | | [facility] | | + + + + + + | MCHC | 33.6 | 32.0 - 36.0 | [facility] | | | | | g/dL | [facility] | | | [facility] | [facility] | | | | | | [facility] - | | | | | | [facility]ATORY | | + + + + + + | RDW-CV | 14.9 | <15.0 % | [facility] | | | | | | [facility] | | | | [facility] | [facility] | | | | | [facility] - | | | | | | [facility]ATORY | | + + + + + + | Platelet | 293 | 140 - 440 K/uL | [facility] | | | Count | | | [facility] | | | | | | [facility] | | | | | [facility] - | | | | | | [facility]ORY | | + + + + + + | MPV | 8.1 | fL | [facility] | | | | | | [facility] | | | | | | [facility] | | | | | [facility] - | | | | | | [facility]ATORY | | + + + + + + | % | 84.7 (H) | 45.0 - 82.0 % | [facility] | | | Neutrophils | | | [facility] | | | | | | [facility] | | | | | | [facility] - | | | | | | LAB[facility]ATORY | | + + + + + + | % | 6.3 (L) | 20.0 - 45.0 % | [facility] | | | Lymphocytes | | | [facility] | | | | | | [facility] | | | | | | [facility] - | | | | | | LAB[facility]ATORY | | + + + + + + | % Monocytes | 6.6 | 4.0 - 12.0 % | [facility] | | | | | | [facility] | | | | | | [facility] | | | | | | [facility] - | | | | | | LAB[facility]ATORY | | + + + + + + | % | 2.0 | 0.0 - 5.0 % | [facility] | | | Eosinophils | | | [facility] | | | | | | [facility] | | | | | | [facility] - | | | | | | LAB[facility]ATORY | | + + + + + + | % Basophils | 0.4 | 0.0 - 1.0 % | [facility] | | | | | | [facility] | | | | | | [facility] | | | | | | [facility] - | | | | | | LAB[facility]ATORY | | + + + + + + | Absolute | 11.50 (H) | 1.80 - 8.50 | [facility] | | | Neutrophils | | K/uL | [facility] | | | | | | [facility] | | | | | | [facility] - | | | | | | LAB[facility]ATORY | | + + + + + + | Absolute | 0.90 | 0.60 - 3.20 | [facility] | | | Lymphocytes | | K/uL | [facility] | | | | | | [facility] | | | | | | [facility] - | | | | | | LAB[facility]ATORY | | + + + + + + | Absolute | 0.90 | 0.00 - 1.00 | [facility] | | | Monocytes | | K/uL | [facility] | | | | | | [facility] | | | | | | [facility] - | | | | | | LAB[facility]ATORY | | + + + + + + | Absolute | 0.30 | 0.00 - 0.40 | [facility] | | | Eosinophils | | K/uL | [facility] | | | | | | [facility] | | | | | | [facility] - | | | | | | LAB[facility]ATORY | | + + + + + + | Absolute | 0.10 | 0.00 - 0.10 | [facility] | | | Basophils | | K/uL | [facility] | | [facility] | [facility] | | | | | | [facility] - | | | | | | [facility]ATORY | | + + + + + + + + | Specimen | + + | Blood | + + + + + + + | Performing | Address | City/State/Zipcode | Phone Number | | Organization | | | | + + + + + | [facility] | [address] | [place] | [phone] | | [facility] | | [address] | | | - LABORATORY | | | | + + + + + Extra Blue Top Tube (08/03/2016 9:07 PM PDT) + +-------+ + + + | Component | Value | Ref Range | Performed | Pathologist | | | | | At | Signature | + +-------+ + + + | Extra Blue | Done | | [facility] | | | Top Tube | | | [facility] | | [facility] | [facility] | | | | | | [facility] - | | | | | | LABORATORY | | + +-------+ + + + + + | Specimen | + + | Blood | + + + + + + + | Performing | Address | City/State/Zipcode | Phone Number | | Organization | | | | + + + + + | [facility] | [address] | [place] | [phone] | | [facility] | | [address] | | | - LABORATORY | | | | + + + + + Extra Gold Top Tube (08/03/2016 9:07 PM PDT) + +-------+ + + + | Component | Value | Ref Range | Performed | Pathologist | | | | | At | Signature | + +-------+ + + + | Extra Gold | Done | | [facility] | | | Top Tube | | | [facility] | | | [facility] | [facility] | | | | | | [facility] - | | | | | | LABORATORY | | + +-------+ + + + + + | Specimen | + + | Blood | + + + + + + + | Performing | Address | City/State/Zipcode | Phone Number | | Organization | | | | + + + + + | [facility] | [address] | [place] | [phone] | | [facility] | | [address] | | | - LABORATORY | | | | + + + + + Extra Lavender Top Tube (08/03/2016 9:07 PM PDT) + +-------+ + + + | Component | Value | Ref Range | Performed | Pathologist | | | | | At | Signature | + +-------+ + + + | Extra | Done | | [facility] | | | Lavender | | | [facility] | | | Top Tube | | | MEDICAL | | | | | | CENTER - | | | | | | LABORATORY | | + +-------+ + + + + + | Specimen | + + | Blood | + + + + + + + | Performing | Address | City/State/Zipcode | Phone Number | | Organization | | | | + + + + + | [facility] | [address] | [place], [place] | [phone] | | [facility] | | [address] | | | - LABORATORY | | | | + + + + + Extra Green Top Tube (08/03/2016 9:07 PM PDT) + +-------+ + + + | Component | Value | Ref Range | Performed | Pathologist | | | | | At | Signature | + +-------+ + + + | Extra Green | Done | | [facility] | | | Top Tube | | | [facility] | | | | | | [facility] | | | | | | C[facility] - | | | | | | LABORATORY | | + +-------+ + + + + + | Specimen | + + | Blood | + + + + + + + | Performing | Address | City/State/Zipcode | Phone Number | | Organization | | | | + + + + + | [facility] | [address] | [place] | [phone] | | [facility] | | [address] | | | - LABORATORY | | | | + + + + + Basic Metabolic Panel (08/03/2016 9:07 PM PDT) + + + + + + | Component | Value | Ref Range | Performed | Pathologist | | | | | At | Signature | + + + + + + | Na | 139 | 136 - 149 | [facility] | | | | | mmol/L | [facility] | | | | | | [facility] | | | | | | CENTER - | | | | | | LABORATORY | | + + + + + + | K | 5.6 (H) | 3.5 - 5.1 | [facility] | | | | | mmol/L | [facility] | | | | | | [facility] | | | | | | [facility] - | | | | | | LABORATORY | | + + + + + + | Cl | 101 | 98 - 109 mmol/L | [facility] | | | | | | [facility] | | | | | | [facility] | | | | | | C[facility] - | | | | | | LABORATORY | | + + + + + + | CO2 | 22 (L) | 24 - 31 mmol/L | [facility] | | | | | | [facility] | | | | | | [facility] | | | | | | [facility] - | | | | | | LABORATORY | | + + + + + + | Anion Gap | 16 | 3 - 16 mmol/L | [facility] | | | | | | [facility] | | | | | | [facility] | | | | | | C[facility] - | | | | | | LABORATORY | | + + + + + + | Glucose | 194 (H) | 70 - 109 mg/dL | [facility] | | | | | | [facility] | | | | | | [facility] | | | | | | C[facility] - | | | | | | LABORATORY | | + + + + + + | BUN | 36 (H) | 7 - 18 mg/dL | [facility] | | | | | | [facility] | | | | | | [facility] | | | | | | C[facility] - | | | | | | LABORATORY | | + + + + + + | Creatinine | 2.03 (H) | 0.60 - 1.30 | [facility] | | | | | mg/dL | [facility] | | | | | | [facility] | | | | | | CENTER - | | | | | | LABORATORY | | + + + + + + | eGFR if not | 32 (L)Comment: | >=60 | [facility] | | | | GLOMERULAR FILTRATION | mL/min/1.73m2 | [facility] | | | [place] | RATE,ESTIMATED | | MEDICAL | | | | mL/min/1.46u7Vjyp than | | CENTER - | | | | 60 Chronic kidney | | LABORATORY | | | | disease,if found over a | | | | | | 3-month period.Less than | | | | | | 15 Kidney failureFor | | | | | | | | | | | | Americans,multiply the | | | | | | calculated GFR by 1.21. | | | | | | | | | | + + + + + + | Calcium | 8.3 | 8.3 - 10.5 | [facility] | | | | | mg/dL | [facility] | | | | | | [facility] | | | | | | CENTER - | | | | | | LABORATORY | | + + + + + + | BUN/Creatin | 17.7 | | [facility] | | | ine Ratio | | | [facility] | | | | | | [facility]ICAL | | | | | | CENTER - | | | | | | LABORATORY | | + + + + + + + + | Specimen | + + | Blood | + + + + + + + | Performing | Address | City/State/Zipcode | Phone Number | | Organization | | | | + + + + + | [facility] | [address] | [place] | [phone] | | [facility] | | [address] | | | - LABORATORY | | | | + + + + + LABS - EXTERNAL SCAN (08/03/2016 12:00 AM PDT) + + + | Narrative | Performed At | + + + | Ordered by an | | | unspecified provider. | | + + + IMAGING REPORT - EXTERNAL SCAN (08/03/2016 12:00 AM PDT) + + + | Narrative | Performed At | + + + | Ordered by an | | | unspecified provider. | | + + + IMAGING REPORT - EXTERNAL SCAN (08/03/2016 12:00 AM PDT) + + + | Narrative | Performed At | + + + | Ordered by an | | | unspecified provider. | | + + + IMAGING REPORT - EXTERNAL SCAN (08/03/2016 12:00 AM PDT) + + + | Narrative | Performed At | + + + | Ordered by an | | | unspecified provider. | | + + + IMAGING REPORT - EXTERNAL SCAN (08/03/2016 12:00 AM PDT) + + + | Narrative | Performed At | + + + | Ordered by an | | | unspecified provider. | | + + + ECG - EXTERNAL SCAN (08/03/2016 12:00 AM PDT) + + + | Narrative | Performed At | + + + | Ordered by an | | | unspecified provider. | | + + + documented in this encounter Visit Diagnoses + + | Diagnosis | + + | Intertrochanteric fracture of left hip, closed, initial encounter (HCC) - Primary | + + | Laceration of left ear, initial encounter | + + | Closed left hip fracture, initial encounter (HCC) | + + | Fall, initial encounter | + + | Acute pain Other acute pain | + + | Hyperkalemia Hyperpotassemia | + + | CKD (chronic kidney disease), unspecified stage | + + | Intractable pain Other chronic pain | + + | Acute hyperkalemia Hyperpotassemia | + + | Chronic kidney disease (CKD), stage 3 (moderate) | + + | Chronic obstructive pulmonary disease, unspecified COPD type (HCC) | + + | Insulin dependent type 2 diabetes mellitus, uncontrolled (HCC) Type II or unspecified | | type diabetes mellitus without mention of complication, uncontrolled | + + | PAOLO on CPAP Obstructive sleep apnea (adult) (pediatric) | + + | Status post fall Unspecified fall | + + | Status post above knee amputation of left lower extremity | + + | Phantom limb pain (HCC) Phantom limb (syndrome) | + + documented in this encounter Administered Medications + +--------+ +------+------+------+ | Medication Order | MAR | Action | Dose | Rate | Site | | | Action | Date | | | | + +--------+ +------+------+------+ | albuterol 2.5 mg/3 mL nebulizer | Given | 08/03/20 | 5 mg | | | | solution 5 mg 5 mg, | | 16 10:36 | | | | | Nebulization, ONCE, 08/03/16 at | | PM PDT | | | | | 2215, For 1 dose, RT will | | | | | | | administer., | | | | | | + +--------+ +------+------+------+ +---+---+ | | | +---+---+ + +-------+ +-------+---+---+ | albuterol-ipratropium (DUONEB) | Given | 08/05/20 | 3 mLs | | | | 2.5-0.5 mg/3 mL nebulizer | | 16 9:18 | | | | | solution 3 mL 3 mL, | | AM PDT | | | | | Nebulization, RT Q6H, First dose | | | | | | | on 08/04/16 at 0315 | | | | | | + +-------+ +-------+---+---+ +-------+ +-------+---+---+ | Given | 08/04/20 | 3 mLs | | | | | 16 8:09 | | | | | | PM PDT | | | | +-------+ +-------+---+---+ | Given | 08/04/20 | 3 mLs | | | | | 16 3:43 | | | | | | PM PDT | | | | +-------+ +-------+---+---+ +---+---+ | | | +---+---+ + +-------+ +-------+---+---+ | amLODIPine (NORVASC) tablet 10 | Given | 08/05/20 | 10 mg | | | | mg 10 mg, Oral, DAILY, First | | 16 9:31 | | | | | dose on 08/04/16 at 1200 | | AM PDT | | | | + +-------+ +-------+---+---+ +-------+ +-------+---+---+ | Given | 08/04/20 | 10 mg | | | | | 16 12:15 | | | | | | PM PDT | | | | +-------+ +-------+---+---+ +---+---+ | | | +---+---+ + +-------+ +-------+---+---+ | aspirin chewable tablet 81 mg | Given | 08/05/20 | 81 mg | | | | 81 mg, Oral, DAILY, First dose on | | 16 9:31 | | | | | 08/04/16 at 0945 | | AM PDT | | | | + +-------+ +-------+---+---+ +-------+ +-------+---+---+ | Given | 08/04/20 | 81 mg | | | | | 16 12:22 | | | | | | PM PDT | | | | +-------+ +-------+---+---+ +---+---+ | | | +---+---+ + + + +-------+---+---+ | atorvaSTATin (LIPITOR) tablet | Given by | 08/04/20 | 80 mg | | | | 80 mg 80 mg, Oral, NIGHTLY, | Other | 16 9:07 | | | | | First dose on 08/04/16 at 0315 | | PM PDT | | | | + + + +-------+---+---+ +---+---+ | | | +---+---+ + +-------+ + +---+---+ | bacitracin topical ointment | Given | 08/03/20 | 1 | | | | Topical, ONCE, 08/03/16 at | | 16 11:08 | Applicat | | | | 2225, For 1 dose | | PM PDT | ion | | | + +-------+ + +---+---+ +---+---+ | | | +---+---+ + +---------+ +--------+ +---+ | dextrose 5% and sodium chloride | New Bag | 08/04/20 | 1,000 | 75 mL/hr | | | 0.45% (D5 1/2 NS) infusion 1,000 | | 16 3:00 | mLs | | | | mL at 75 mL/hr, Intravenous, | | AM PDT | | | | | FIXED VOLUME (see admin | | | | | | | instruction), Starting 08/04/16 | | | | | | | at 0315, For 13 hours, Infuse 1 | | | | | | | L of fluids then saline lock IV., | | | | | | | | | | | | | + +---------+ +--------+ +---+ +---+---+ | | | +---+---+ + +-------+ +------+---+---+ | dextrose 50% injection 25 g 25 | Given | 08/03/20 | 25 g | | | | g, Intravenous, ONCE, 08/03/16 | | 16 11:06 | | | | | at 2215, For 1 dose | | PM PDT | | | | + +-------+ +------+---+---+ +---+---+ | | | +---+---+ + +-------+ +--------+---+---+ | ferrous sulfate tablet 325 mg | Given | 08/05/20 | 325 mg | | | | 325 mg, Oral, 2 TIMES DAILY WITH | | 16 9:31 | | | | | BREAKFAST & DINNER, First dose on | | AM PDT | | | | | 08/04/16 at 0800 | | | | | | + +-------+ +--------+---+---+ +-------+ +--------+---+---+ | Given | 08/04/20 | 325 mg | | | | | 16 5:25 | | | | | | PM PDT | | | | +-------+ +--------+---+---+ +---+---+ | | | +---+---+ + + + +--------+---+---+ | gabapentin (NEURONTIN) capsule | Given by | 08/04/20 | 400 mg | | | | 400 mg 400 mg, Oral, NIGHTLY, | Other | 16 9:06 | | | | | First dose on 08/04/16 at 0315 | | PM PDT | | | | + + + +--------+---+---+ +---+---+ | | | +---+---+ + +-------+ +------+---+---+ | HYDROmorphone (DILAUDID) | Given | 08/04/20 | 1 mg | | | | injection 1 mg 1 mg, | | 16 2:26 | | | | | Intravenous, EVERY 2 HOURS PRN, | | AM PDT | | | | | Severe Pain, Pain, Starting Sun | | | | | | | 08/04/16 at 0028 | | | | | | + +-------+ +------+---+---+ +-------+ +------+---+---+ | Given | 08/04/20 | 1 mg | | | | | 16 12:36 | | | | | | AM PDT | | | | +-------+ +------+---+---+ +---+---+ | | | +---+---+ + +-------+ +------+---+---+ | HYDROmorphone (DILAUDID) | Given | 08/04/20 | 1 mg | | | | injection 1 mg 1 mg, | | 16 9:38 | | | | | Intravenous, ONCE, 08/04/16 at | | AM PDT | | | | | 0945, For 1 dose | | | | | | + +-------+ +------+---+---+ +---+---+ | | | +---+---+ + +-------+ +------+---+---+ | HYDROmorphone (DILAUDID) | Given | 08/04/20 | 2 mg | | | | injection 1-2 mg 1-2 mg, | | 16 8:13 | | | | | Intravenous, EVERY 2 HOURS PRN, | | AM PDT | | | | | Severe Pain, Pain, Starting Sun | | | | | | | 08/04/16 at 0245 | | | | | | + +-------+ +------+---+---+ +-------+ +------+---+---+ | Given | 08/04/20 | 2 mg | | | | | 16 5:58 | | | | | | AM PDT | | | | +-------+ +------+---+---+ | Given | 08/04/20 | 1 mg | | | | | 16 3:17 | | | | | | AM PDT | | | | +-------+ +------+---+---+ +---+---+ | | | +---+---+ + +-------+ + +---+ + | insulin glargine (LANTUS | Given | 08/04/20 | 20 Units | | Arm-Left | | SOLOSTAR) 100 units/mL injection | | 16 9:21 | | | Upper | | (pen) 20 Units 20 Units, | | PM PDT | | | | | Subcutaneous, NIGHTLY, First dose | | | | | | | on 08/04/16 at 2100, For | | | | | | | subcutaneous use only. Basal | | | | | | | (long acting) insulin., | | | | | | + +-------+ + +---+ + +---+---+ | | | +---+---+ + +-------+ +---------+---+ + | insulin lispro (humaLOG | Given | 08/04/20 | 2 Units | | Abdomen- | | KWIKPEN) 100 units/mL injection | | 16 5:41 | | | RUQ | | (pen) 0-12 Units 0-12 Units, | | PM PDT | | | | | Subcutaneous, 4 TIMES DAILY WITH | | | | | | | MEALS & NIGHTLY, First dose on | | | | | | | 08/04/16 at 0800, CORRECTION | | | | | | | SCALE: Blood Glucose (BG) < | | | | | | | 150: None BG | | | | | | | 150-200: DAY: 2 units. NIGHT: | | | | | | | 0 units BG 201-250: DAY: 4 | | | | | | | units. NIGHT: 2 units BG | | | | | | | 251-300: DAY: 6 units. NIGHT: | | | | | | | 4 units BG 301-350: DAY: 8 | | | | | | | units. NIGHT: 6 units BG | | | | | | | 351-400: DAY: 10 units. NIGHT: 8 | | | | | | | units BG > 400 : DAY: 12 | | | | | | | units. NIGHT: 10 units | | | | | | | AND CALL PROVIDER | | | | | | | , Use DAY DOSE for doses | | | | | | | scheduled: AC, NPO, Daytime | | | | | | | [id number] Use NIGHT DOSE for | | | | | | | doses scheduled: HS, 3AM, | | | | | | | Nighttime 9110-1069, | | | | | | + +-------+ +---------+---+ + +-------+ +---------+---+ + | Given | 08/04/20 | 8 Units | | Abdomen- | | | 16 12:13 | | | RUQ | | | PM PDT | | | | +-------+ +---------+---+ + | Given | 08/04/20 | 2 Units | | Abdomen- | | | 16 8:29 | | | LUQ | | | AM PDT | | | | +-------+ +---------+---+ + +---+---+ | | | +---+---+ + +-------+ + +---+---+ | insulin regular (humuLIN R, | Given | 08/03/20 | 10 Units | | | | novoLIN R) injection 10 Units 10 | | 16 11:08 | | | | | Units, Intravenous, ONCE, Sat | | PM PDT | | | | | 08/03/16 at 2215, For 1 dose | | | | | | + +-------+ + +---+---+ +---+---+ | | | +---+---+ + +-------+ +---------+---+---+ | metoprolol tartrate (LOPRESSOR) | Given | 08/05/20 | 12.5 mg | | | | tablet 12.5 mg 12.5 mg, Oral, 2 | | 16 9:32 | | | | | TIMES DAILY, First dose on Sun | | AM PDT | | | | | 08/04/16 at 0900 | | | | | | + +-------+ +---------+---+---+ + + +---------+---+---+ | Given by Other | 08/04/20 | 12.5 mg | | | | | 16 9:07 | | | | | | PM PDT | | | | + + +---------+---+---+ | Given | 08/04/20 | 12.5 mg | | | | | 16 8:13 | | | | | | AM PDT | | | | + + +---------+---+---+ +---+---+ | | | +---+---+ + +-------+ +------+---+---+ | morphine injection 4 mg 4 mg, | Given | 08/03/20 | 4 mg | | | | Intravenous, ONCE, 08/03/16 at | | 16 9:03 | | | | | 2100, For 1 dose | | PM PDT | | | | + +-------+ +------+---+---+ +---+---+ | | | +---+---+ + +-------+ +------+---+---+ | morphine injection 4 mg 4 mg, | Given | 08/03/20 | 4 mg | | | | Intravenous, ONCE, 08/03/16 at | | 16 9:44 | | | | | 2130, For 1 dose | | PM PDT | | | | + +-------+ +------+---+---+ +---+---+ | | | +---+---+ + +-------+ +------+---+---+ | morphine injection 4 mg 4 mg, | Given | 08/03/20 | 4 mg | | | | Intravenous, ONCE, 08/03/16 at | | 16 11:13 | | | | | 2220, For 1 dose | | PM PDT | | | | + +-------+ +------+---+---+ +---+---+ | | | +---+---+ + +---------+ +---------+---+ + | nicotine (NICODERM) 21 mg/24 hr | Patch | 08/05/20 | 1 patch | | Back-Lef | | 1 patch 1 patch, Transdermal, | Applied | 16 9:36 | | | t Upper | | DAILY, First dose on 08/04/16 | | AM PDT | | | | | at 0945 | | | | | | + +---------+ +---------+---+ + + + +---------+---+ + | Patch Applied | 08/04/20 | 1 patch | | Arm-Left | | | 16 9:37 | | | Upper | | | AM PDT | | | | + + +---------+---+ + +---+---+ | | | +---+---+ + +-------+ +------+---+---+ | ondansetron (ZOFRAN) injection | Given | 08/03/20 | 4 mg | | | | 4 mg 4 mg, Intravenous, ONCE, | | 16 9:07 | | | | | 08/03/16 at 2100, For 1 dose | | PM PDT | | | | + +-------+ +------+---+---+ +---+---+ | | | +---+---+ + +-------+ +-------+---+---+ | oxyCODONE (ROXICODONE) tablet | Given | 08/05/20 | 15 mg | | | | 15 mg 15 mg, Oral, EVERY 4 HOURS | | 16 1:10 | | | | | PRN, Pain, Starting 08/04/16 | | PM PDT | | | | | at 0953 | | | | | | + +-------+ +-------+---+---+ +-------+ +-------+---+---+ | Given | 08/05/20 | 15 mg | | | | | 16 9:31 | | | | | | AM PDT | | | | +-------+ +-------+---+---+ | Given | 08/05/20 | 15 mg | | | | | 16 5:02 | | | | | | AM PDT | | | | +-------+ +-------+---+---+ +---+---+ | | | +---+---+ + +-------+ +-------+---+---+ | pantoprazole (PROTONIX) DR | Given | 08/05/20 | 40 mg | | | | tablet 40 mg 40 mg, Oral, DAILY | | 16 6:43 | | | | | BEFORE BREAKFAST, First dose on | | AM PDT | | | | | 08/04/16 at 0730, Do not cut or | | | | | | | crush., | | | | | | + +-------+ +-------+---+---+ +---+---+ | | | +---+---+ + +-------+ +--------+---+---+ | senna (SENOKOT) tablet 8.6 mg | Given | 08/05/20 | 8.6 mg | | | | 8.6 mg, Oral, 2 TIMES DAILY, | | 16 9:31 | | | | | First dose on 08/04/16 at 0900, | | AM PDT | | | | | If docusate ineffective or not | | | | | | | ordered., | | | | | | + +-------+ +--------+---+---+ + + +--------+---+---+ | Given by Other | 08/04/20 | 8.6 mg | | | | | 16 9:07 | | | | | | PM PDT | | | | + + +--------+---+---+ | Given | 08/04/20 | 8.6 mg | | | | | 16 8:12 | | | | | | AM PDT | | | | + + +--------+---+---+ +---+---+ | | | +---+---+ + +-------+ +--------+---+---+ | sodium bicarbonate tablet 650 | Given | 08/05/20 | 650 mg | | | | mg 650 mg, Oral, 4 TIMES DAILY, | | 16 9:31 | | | | | First dose on 08/04/16 at 0900 | | AM PDT | | | | + +-------+ +--------+---+---+ + + +--------+---+---+ | Given by Other | 08/04/20 | 650 mg | | | | | 16 9:07 | | | | | | PM PDT | | | | + + +--------+---+---+ | Given | 08/04/20 | 650 mg | | | | | 16 5:25 | | | | | | PM PDT | | | | + + +--------+---+---+ +---+---+ | | | +---+---+ + +---------+ +---+-------+---+ | sodium chloride 0.9% (NS) | New Bag | 08/04/20 | | 100 | | | infusion at 100 mL/hr, | | 16 12:22 | | mL/hr | | | Intravenous, CONTINUOUS, Starting | | PM PDT | | | | | 08/04/16 at 1200, For 5 hours | | | | | | + +---------+ +---+-------+---+ +---+---+ | | | +---+---+ + +-------+ +---------+---+---+ | sodium phosphate (FLEET) enema | Given | 08/05/20 | 133 mLs | | | | 133 mL 133 mL, Rectal, DAILY | | 16 8:04 | | | | | PRN, Constipation, Starting Mon | | AM PDT | | | | | 08/05/16 at 0757 | | | | | | + +-------+ +---------+---+---+ +---+---+ | | | +---+---+ + +-------+ +------+---+---+ | sodium polystyrene (KAYEXALATE) | Given | 08/04/20 | 15 g | | | | 15 g/60 mL suspension 30 g 30 | | 16 12:14 | | | | | g, Oral, ONCE, 08/04/16 at | | PM PDT | | | | | 1115, For 1 dose, Shake well. Do | | | | | | | not mix in orange juice., | | | | | | + +-------+ +------+---+---+ +---+---+ | | | +---+---+ + +-------+ +---------+---+ + | ugegirz-jbftrvrpsy-umthhyxqe | Given | 08/03/20 | 0.5 mLs | | Deltoid- | | pertussis (ADACEL, Tdap) vaccine | | 16 9:41 | | | Right | | injection 0.5 mL 0.5 mL, | | PM PDT | | | | | Intramuscular, ONCE, 08/03/16 | | | | | | | at 2120, For 1 dose, Keep in | | | | | | | refrigerator. Provide patient | | | | | | | education information., | | | | | | + +-------+ +---------+---+ + +---+---+ | | | +---+---+ documented in this encounter
--- OUTSIDE RECORDS SUMMARY | ~2020-06-08 | XMS | Encounter Summary ---
Demographics + + + | Address | [address] | | | [place] [address] | + + + | Home Phone | | + + + | Preferred Language | Unknown | + + + | Marital Status | | + + + | Caodaism Affiliation | 1077 | + + + | Race | Unknown | + + + | Ethnic Group | Unknown | + + + Author + + + | Author | [facility] | | | and [place] | + + + | Organization | [facility] | | | [...] Team Providers + +------+ + | Care Bread Dough Mixer Name | Role | Phone | + +------+ + | Mehrdad Bergman | PCP | | + +------+ + Encounter Details +--------+ + + + + | Date | Type | Department | Care Team | Description | +--------+ + + + + | 10/01/ | Telephone | [facility] | Farrukh Acuna MD | | | 2019 | | NEPHROLOGY [place] | [address] [address] | | | | | [address] | [address] [place], [place] | | | | | [place] | [address] | | | | | [address] | | | | | | [phone] | | | +--------+ + + + + Social History + +-------+ +--------+------+ | Tobacco Use | Types | Packs/Day | Years | Date | | | | | Used | | + +-------+ +--------+------+ | Current Every Day | | 1 | 59 | | | Smoker | | | | | + +-------+ +--------+------+ + +------+---+---+ | Smokeless Tobacco: | Chew [...] + + documented as of this encounter Miscellaneous Notes Telephone Encounter - Eva Joaquin - 10/01/2019 4:10 PM PDTProvider: Armand patient daughter called left a message saying [facility] and [facility] should have faxed them already. Checked system nothing was received. Called pt said that he will urena ve them refax by Friday. Please call them back at [phone] . Detailed message may be left on phone: Yes Last OV: Next OV: 10/04/19 documented in this enc ounter Plan of Treatment +--------+ + + + + | Date | Type | Specialty | Care Team | Description | +--------+ + + + + | 06/19/ | Office | Pulmonology | Alina Frias | | | 2019 | Visit | | MD Daniel [address] | | | | | [address] [facility] | | | | | | [place] [address] | | | | | | [phone] | | | | | | | | +--------+ + + + + | 08/09/ | Virtual | Nephrology | Farrukh Acuna MD | | | 2019 | Office | | [address] [place] | | | | Visit | | [address] [place] | | | | | | [address] | | | | | | | | +--------+ + + + + documented as of this encounter Visit Diagnoses Not on filedocumented in this encounter"
--- OUTSIDE RECORDS SUMMARY | ~2020-06-08 | XMS | Encounter Summary ---
Demographics + + + | Address | [address] | | | [place] [address] | + + + | Home Phone | | + + + | Preferred Language | Unknown | + + + | Marital Status | Single | + + + | Caodaism Affiliation | PRO | + + + | Race | White | + + + | Ethnic Group | Not or | + + + Author + + + | Author | [facility] | + + + | Organization | [facility] | + + + | Address | Unknown | + + + | Phone | Unavailable | + + + Support + + + + + | Name | Relationship | Address | Phone | + + + + + | Darci Andujar | VALERIE | [place] | | | | | [address] | | + + + + + Care Team Providers + +------+ + | Care Electromagnet Crane Operator Name | Role | Phone | + +------+ + PCP | Unavailable | + +------+ + Encounter Details +--------+ + + + + | Date | Type | Department | Care Team | Description | +--------+ + + + + | 02/28/ | Discharge | UNKNOWN DEPARTMENT | Summary, Discharge | D/C Summary ODDS | | 1993 | Summary-Tra | [address] | | | | | nscribed | [address] | | | | | | [place] | | | | | | [address] | | | +--------+ + + + [...] + + documented as of this encounter Discharge Summaries Interface, Drafter In - 04/01/2007 5:08 AM PDT [address] [address] [facility] MEDICAL SUMMARY OF HOSPITALIZATION Med Rec No.: [id number] Admission Date: 02/25/94 Name: Kavon Andujar Discharge Date: 02/28/94 STAFF PHYSICIAN: Tl Strickland M.D. 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 PRINCIPAL PROCEDURE: Lidocaine challenge. REASON FOR ADMISSION: The patient was admitted for a trial of various invasive procedures to see what could produce long-term pain relief. HOSPITAL COURSE: He underwent a left femoral nerve block with no relief of his pain. He also underwent a lumbar sympathetic block on the left side and this produced no change in his pain status postoperatively. He underwent a trial of Lidocaine challenge to which he showed very good response. He was then put on oral Mexiletine and discharged home. CONDITION ON DISCHARGE: Good. DISCHARGE INSTRUCTION(S): 1. Discharge medications: Mexiletine 150 mg t.i.d. This was to be monitored and increased slowly until a good effect was achieved. 2. Diet: Normal. 3. Follow-up recommendations: The patient will have follow-up in two weeks. Rosalind Delacruz M.D. Fellow, Anesthesiology & Pain Clinic Tl Strickland M.D. Interim Director, Pain Clinic NK:freddie A cc: RUBIA KNAPP MD [address] [facility] [id number] documented in this encounter Plan of Treatment Not on filedocumented as of this encounter Visit Diagnoses Not on filedocumented in this encounter"
--- OUTSIDE RECORDS SUMMARY | ~2020-06-08 | XMS | Encounter Summary ---
Demographics + + + | Address | [address] | | | [place] [address] | + + + | Home Phone | | + + + | Preferred Language | Unknown | + + + | Marital Status | | + + + | Sikhism Affiliation | 1077 | + + + | Race | Unknown | + + + | Ethnic Group | Unknown | + + + Author + + + | Author | [facility] | | | and [place] | + + + | Organization | [facility] | | | [...] Team Providers + +------+ + | Care Materials Handling Equipment Operator Name | Role | Phone | + +------+ + | Rahul Silva MD | PCP | | + +------+ + Reason for Visit +--------+--------+ + | Reason | Onset | Comments | | | Date | | +--------+--------+ + | Other | 10/06/ | | | | 2019 | | +--------+--------+ + Encounter Details +--------+ + + + + | Date | Type | Department | Care Team | Description | +--------+ + + + + | 10/06/ | Telephone | [facility] | Farrukh Acuna MD | Other | | 2019 | | NEPHROLOGY [place] | [address] [place] | | | | | [address] [place] | [address] [place], [place] | | | | | [address] [facility] [place] | [address] | | | | | [address] | | | | | | [phone] | | | +--------+ + + + [...] this encounter Miscellaneous Notes Telephone Encounter - Trinidad Simon Manager Compliance - 10/07/2019 10:15 AM PSTInfor med patients daughter of provider message. She verbalized understanding and had no further q uestions at this time. Electronically signed by Trinidad Simon Manager Compliance at 05/2019 10:17 AM PSTTelephone Encounter - Trinidad Simon Medical Assistant - 10:07 AM PSTCalled Charlotte for clarification and she stated that the patient was taken off the atenolol and mag 64 in the hospital and she wants to verify that Dr. Acuna wanted him to stay off of it. She also stated that patients b/p this morning was 152/45. Called Dr. Acuna and infromed of this and he stated that the patient was told to stay off t he medications at their las visit. He Would also like patient to record B/P for a week and he will review it in a week.Electronically signed by Trinidad Simon Manager Compliance logan t 10/07/2019 10:17 AM PSTTelephone Encounter - Laureen Gill V - 10/06/2019 3:07 PM PSTP rovider: Armand/Stop of medication Atenolol and Magnesium clarification. Daughter called wanting to inform provider his blood pressure has been 161/46, 160/46, 153/ 46 etc... Daughter wants to know if provider stopped medication Atenolol and Magnesium or do es he still want him to take medication. Please call them back at [phone]. Detailed message may be left on phone: Yes Last OV: 10/04/19 Next OV: 12/06/19 If this is a symptom based call and you were unable to immediately transfer the call to [facility] staff, was caller made aware that if at any timeshefeels it is an emergency they shoul d call 911 or go to the nearest emergency room? N/A Is bioinformatics team member needed: no documented in this enc ounter Plan of Treatment +--------+ + + + + | Date | Type | Specialty | Care Team | Description | +--------+ + + + + | 06/19/ | Office | Pulmonology | Alina Frias | | | 2019 | Visit | | MD Daniel [address] | | | | | | [address] | | | | | | [place] [address] | | | | | | [phone] | | | | | | | | +--------+ + + + + | 08/09/ | Virtual | Nephrology | Farrukh Acuna MD | | | 2019 | Office | | [address] [facility] | | | | Visit | | [address] [place] | | | | | | [address] | | | | | | | | +--------+ + + + + documented as of this encounter Visit Diagnoses Not on filedocumented in this encounter"
--- OUTSIDE RECORDS SUMMARY | ~2020-06-08 | XMS | Encounter Summary ---
Demographics + + + | Address | [address] | | | [place] [address] | + + + | Home Phone | | + + + | Preferred Language | Unknown | + + + | Marital Status | Single | + + + | Anabaptism Affiliation | PRO | + + + | Race | White | + + + | Ethnic Group | Not or | + + + Author + + + | Author | [facility] | + + + | Organization | [facility] | + + + | Address | Unknown | + + + | Phone | Unavailable | + + + Support + + + + + | Name | Relationship | Address | Phone | + + + + + | Darci Andujar | VALERIE | [place] | | | | | [address] | | + + + + + Care Team Providers + +------+ + | Care Cheesemaker Helper Name | Role | Phone | + [...] Clinic | | | | | | [facility], [address] | | | | | | [place], [place] | | | | | | [address] | | | | | | [phone] | | | +--------+ + + + [...] as of this encounter Progress Notes Interface, Sdc Teacher In - 01/06/2007 5:03 AM PST CLINIC DATE: 11/10/97 [facility] - FOLLOW-UP VISIT SUBJECTIVE: [...] of narcotic medication misuse. Nelson Melara M.D. Manager Private, Anest[facility]iology [facility] MANDY/camryn cc: Robert Carlson M.D. Professor, Vascular Surgery documented in this encounter Plan of Treatment Not on filedocumented as of this encounter Visit Diagnoses Not on filedocumented in this encounter"
--- OUTSIDE RECORDS SUMMARY | ~2020-06-08 | XMS | Encounter Summary ---
Demographics + + + | Address | [address] | | | [place] [address] | + + + | Home Phone | | + + + | Preferred Language | Unknown | + + + | Marital Status | | + + + | Mu-Ism Affiliation | 1077 | + + + [...] Team Providers + +------+ + | Care Detective Automobile Section Name | Role | Phone | + +------+ + | Rahul Silva MD | PCP | | + +------+ + Reason for Visit +--------+--------+ + | Reason | Onset | Comments | | | Date | | +--------+--------+ + | Other | 08/13/ | lab result | | | 2019 | | +--------+--------+ + Encounter Details +--------+ + + + + | Date | Type | Department | Care Team | Description | +--------+ + + + + | 08/13/ | Telephone | [facility] | Farrukh Acuna MD | Other (lab result) | | 2019 | | NEPRHOLOGY [place] | [address] | | | | | [address] | [address] [place], [place] | | | | | [address] [place], [place] | [address] | | | | | [address] | | | | | | [phone] | | | +--------+ + + + [...] this encounter Miscellaneous Notes Telephone Encounter - Oly Alvarenga V, Kitchen And Bath Designer - 08/13/2019 3:32 [address] e with Dr. Acuna. Per Dr. Acuna, no change, potassium ok. Called and spoke with daughter, Charlotte. Relay the provider message. She voiced understandin g. No further questions. elephone Encounter - Oly Alvarenga V Kitchen And Bath Designer - 08/13 3:05 PM PDTPlease review and advice. I already abstract the lab results. elephone Encounter - Laureen Gill V - 08/13/2019 2:1 6 PM PDTProvider: Akoum/lab results patient and daughter called wanting to get lab results today, I did inform we have no provi dixie in office and are low staffed, she wants a call today with lab results. Please call them back at [phone]. Detailed message may be left on phone: Yes Last OV: 05/31/19 Next OV: 10/04/19 If this is a symptom based call and you were unable to immediately transfer the call to [facility] staff, was caller made aware that if at any timeshefeels it is an emergency they shoul d call 911 or go to the nearest emergency room? N/A Is assistant editor needed: no documented in this enc ounter [...] | | | | | | [place] [address] | | | | | | [phone] | | | | | | | | +--------+ + + + + | 08/09/ | Virtual | Nephrology | Farrukh Acuna MD | | | 2019 | Office | | [address] [facility] | | | | Visit | | [address] [place] | | | | | | [address] | | | | | | | | +--------+ + + + + documented as of this encounter Visit Diagnoses Not on filedocumented in this encounter"
--- OUTSIDE RECORDS SUMMARY | ~2020-06-08 | XMS | Encounter Summary ---
Demographics + + + | Address | [address] | | | [place] [address] | + + + | Home Phone | | + + + | Preferred Language | Unknown | + + + | Marital Status | | + + + | Gnosticism Affiliation | 1077 | + + + [...] Team Providers + +------+ + | Care Fleet Sales Manager Name | Role | Phone | + +------+ + | Rahul Silva MD | PCP | | + +------+ + Encounter Details +--------+ + + + + | Date | Type | Department | Care Team | Description | +--------+ + + + + | 11/13/ | Orders Only | [facility] | Conversion | | | 2016 | | [address] | Transaction, | | | | | [place], [place] | Provider Unknown | | | | | [address] | | | | | | [phone] | | | +--------+ + + + [...] [address] | | | | | | [place] [address] | | | | | | [phone] | | | | | | | | +--------+ + + + + | 08/09/ | Virtual | Nephrology | Farrukh Acuna MD | | | 2019 | Office | | [address] [facility] | | | | Visit | | [address] [place] | | | | | | [address] | | | | | | | | +--------+ + + + + documented as of this encounter Procedures + +--------+ + + + | Procedure Name | Priori | Date/Time | Associated Diagnosis | Comments | | | ty | | | | + +--------+ + + + | CK TOTAL | Routin | 11/13/2016 | | Results for this | | | e | 4:37 AM | | procedure are in the | | | | PST | | results section. | + +--------+ + + + documented in this encounter Results CK Total (11/13/2016 4:37 AM PST) + +-------+ + + + | Component | Value | Ref Range | Performed | Pathologist | | | | | At | Signature | + +-------+ + + + | CK, Total | 74 | 55 - 400 U/L | EXTERNAL [...]
--- OUTSIDE RECORDS SUMMARY | ~2020-06-08 | XMS | Encounter Summary ---
Demographics + + + | Address | [address] | | | [place] [address] | + + + | Home Phone [...] Team Providers + +------+ + | Care Air Defense Control Officer Name | Role | Phone | + +------+ + | Rahul Silva MD | PCP | | + +------+ + Encounter Details +--------+ + + + + | Date | Type | Department | Care Team | Description | +--------+ + + + + | 01/26/ | Orders Only | [facility] | Conversion | | | 2014 | | NEPRHOLOGY [place] | Transaction, | | | | | [address] | Provider Unknown | | | | | [address] [place], [place] | [phone] | | | | | [address] | (Fax) | | | | | [phone] | | | +--------+ + + + [...] | | | | | [address] [facility] | | | | | | [place] [address] | | | | | | [phone] | | | | | | | | +--------+ + + + + | 08/09/ | Virtual | Nephrology | Farrukh Acuna MD | | | 2019 | Office | | [address] [facility] | | | | Visit | | [address] [place] | | | | | | [address] | | | | | | | | +--------+ + + + + documented as of this encounter Procedures + +--------+ + + + | Procedure Name | Priori | Date/Time | Associated Diagnosis | Comments | | | ty | | | | + +--------+ + + + | EXTERNAL LAB: CBC | Routin | 01/26/2015 | | Results for this | | | e | 12:00 AM | | procedure are in the | | | | PST | | results section. | + +--------+ + + + | IRON AND IRON | Routin | 01/26/2015 | | Results for this | | BINDING CAPACITY | e | 12:00 AM | | procedure are in the | | | | PST | | results section. | + +--------+ + + + | VITAMIN D, | Routin | 01/26/2015 | | Results for this | | DEFICIENCY SCREEN | e | 12:00 AM | | procedure are in the | | (25-HYDROXY) | | PST | | results section. | + +--------+ + + + | PARATHYROID HORMONE, | Routin | 01/26/2015 | | Results for this | | INTACT AND CALCIUM | e | 12:00 AM | | procedure are in the | | | | PST | | results section. | + +--------+ + + + | URIC ACID | Routin | 01/26/2015 | | Results for this | | | e | 12:00 AM | | procedure are in the | | | | PST | | results section. | + +--------+ + + + | MAGNESIUM | Routin | 01/26/2015 | | Results for this | | | e | 12:00 AM | | procedure are in the | | | | PST | | results section. | + +--------+ + + + | FERRITIN | Routin | 01/26/2015 | | Results for this | | | e | 12:00 AM | | procedure are in the | | | | PST | | results section. | + +--------+ + + + | RENAL FUNCTION PANEL | Routin | 01/26/2015 | | Results for this | | | e | 12:00 AM | | procedure are in the | | | | PST | | results section. | + +--------+ + + + documented in this encounter Results Iron and Iron Binding Capacity (01/26/2015 12:00 AM PST) + +-------+ + + + | Component | Value | Ref Range | Performed | Pathologist | | | | | At | Signature | + +-------+ + + + | Iron | 65 | 37 - 160 | EXTERNAL | | | | | | LAB | | + +-------+ + + + | Iron | 20.6 | 20 - 55 | EXTERNAL | | | Saturation | | | LAB | | + +-------+ + + + | TIBC | 316 | 245 - 400 | EXTERNAL | [...] + + Parathyroid Hormone, Intact and Calcium (01/26/2015 12:00 AM PST) + +-------+ + + + | Component | Value | Ref Range | Performed | Pathologist | | | | | At | Signature | + +-------+ + + + | PTH Intact | 49.46 | 15 - 64 | EXTERNAL | | | | | | LAB | | + +-------+ + + + | Calcium | 8.7 [...] + + Vitamin D, Deficiency Screen (25-Hydroxy) (01/26/2015 12:00 AM PST) + +-------+ + + + | Component | Value | Ref Range | Performed | Pathologist | | | | | At | Signature | + +-------+ + + + | Vit D, | 35 | 30 - 100 | EXTERNAL | [...] + +---------+ + + External Lab: CBC (01/26/2015 12:00 AM PST) + + + + + + | Component | Value | Ref Range | Performed | Pathologist | | | | | At | Signature | + + + + + + | WBC | 8.8 | 4.5 - 11.0 10 | EXTERNAL | | | | | | LAB | | + + + + + + | Non- | 3.68 (A) | 3.8 - 5.7 10 | EXTERNAL | | | Red Blood | | | LAB | | | Cells | | | | | | Counted | | | | | + + + + + + | Hemoglobin | 11.4 (A) | 12.0 - 18.0 | EXTERNAL | | | | | g/dL | LAB | | + + + + + + | Hematocrit, | 34.2 (A) | 35 - 50 % | EXTERNAL | | | POC | | | LAB | | + + + + + + | MCV | 92.7 | 81 - 99 fL | EXTERNAL [...] + + + + | Platelet | 301 | 140 - 440 K/ L | [...] + + + | % Segmented | 69.2 | 39 - 80 % | EXTERNAL | | | | | | LAB | | | Neutrophils | | | | | + + + + + + | % | 16.1 (A) | 24 - 44 % | EXTERNAL | | | Lymphocytes | | | LAB | | + + + + + + | % Monocytes | 8.5 | 0 - 12 % | EXTERNAL | | | | | | LAB | | + + + + + + | % | 5.7 | 0 - 6 % | EXTERNAL [...] | + +---------+ + + Uric Acid (01/26/2015 12:00 AM PST) + +-------+ + + + | Component | Value | Ref Range | Performed | Pathologist | | | | | At | Signature | + +-------+ + + + | Uric Acid | 6.9 | 2.3 - 7.6 | EXTERNAL | | | [...] | | + +---------+ + + Magnesium (01/26/2015 12:00 AM PST) + +---------+ + + + | Component | Value | Ref Range | Performed | Pathologist | | | | | At | Signature | + +---------+ + + + | Magnesium | 1.3 (A) | 1.7 - 2.5 mg/dL | [...] | | + +---------+ + + Ferritin (01/26/2015 12:00 AM PST) + +-------+ + + + | Component | Value | Ref Range | Performed | Pathologist | | | | | At | Signature | + +-------+ + + + | Ferritin, | 111.2 | ng/mL | EXTERNAL | | | External [...] + +---------+ + + Renal Function Panel (01/26/2015 12:00 AM PST) + + + + + + | Component | Value | Ref Range | Performed | Pathologist | | | | | At | Signature | + + + + + + | Glucose, | 214 (A) | 70 - 100 mg/dL | EXTERNAL | | | Fasting | | | LAB | | + + + + + + | BUN | 25 (A) | 6 - 23 mg/dL | EXTERNAL | | | | | | LAB | | + + + + + + | Creatinine | 1.55 (A) | 0.50 - 1.50 | EXTERNAL | | | | | [...] + + + + | Cl | 106 | 95 - 112 mmol/L | EXTERNAL [...] | | | LAB | | | [facility] | | | | | + + + + + + | Phosphorus, | 4.1 | 2.5 - 5.0 | EXTERNAL | | | Inorganic | | | LAB | | + + + + + + | BUN/Creatin | 16.1 | 6.0 - 28.6 | EXTERNAL | | | ine Ratio | | | LAB | | + + + + + + | Calcium | 8.7 | 8.4 - 10.2 | EXTERNAL | | | | | mg/dL | LAB | | + + + + + + | Estimated | 44 | mg/dL | EXTERNAL | | | [...]
--- OUTSIDE RECORDS SUMMARY | ~2020-06-08 | XMS | Encounter Summary ---
Demographics + + + | Address | [address] | | | [place] [address] | + + + | Home Phone [...] Team Providers + +------+ + | Care Urban Forester Name | Role | Phone | + +------+ + | Rahul Silva MD | PCP | | + +------+ + Encounter Details +--------+ + + + + | Date | Type | Department | Care Team | Description | +--------+ + + + + | 10/27/ | Orders Only | [facility] | Conversion | | | 2016 | | NEPHROLOGY [place] | Transaction, | | | | | [address] | Provider Unknown | | | | | [address] [place] [address] | | | | | | [address] | (Fax) | | | | | [phone] | | | +--------+ + + + [...] | | | | | [place] [address] | | | | | | [phone] | | | | | | | | +--------+ + + + + | 08/09/ | Virtual | Nephrology | Farrukh Acuna MD | | | 2019 | Office | | [address] [facility] | | | | Visit | | [address] [place], [place] | | | | | | [address] | | | | | | | [...]
--- OUTSIDE RECORDS SUMMARY | ~2020-06-08 | XMS | Encounter Summary ---
Demographics + + + | Address | [address] | | | [place] [address] | + + + | Home Phone | | + + + | Preferred Language | Unknown | + + + | Marital Status | Single | + + + | Tenriism Affiliation | PRO | + + + | Race | White | + + + | Ethnic Group | Not or | + + + Author + + + | Author | [facility] | + + + | Organization | [facility] | + + + | Address | Unknown | + + + | Phone | Unavailable | + + + Support + + + + + | Name | Relationship | Address | Phone | + + + + + | Darci Andujar | [address]ERIE | [place] | | | | | [address] | | + + + + + Care Team Providers + +------+ + | Care Location Man Name | Role | Phone | + [...] [address] | | | | | | [place] | | | | | | [address] | | | +--------+ + + + [...] as of this encounter Discharge Summaries Interface, Funeral Home General Manager In - 04/01/2007 5:08 AM PDT [address] [address] [facility] MEDICAL SUMMARY OF HOSPITALIZATION Med Rec No.: [...] Clinic NK:freddie A cc: RUBIA KNAPP MD [address] [facility] [address] documented in this encounter Plan of Treatment Not on filedocumented as of this encounter Visit Diagnoses Not on filedocumented in this encounter"
--- OUTSIDE RECORDS SUMMARY | ~2020-06-08 | XMS | Encounter Summary ---
Demographics + + + | Address | [address] | | | [place] [address] | + + + | Home Phone | | + + + | Preferred Language | Unknown | + + + | Marital Status | | + + + | Oriental Orthodox Affiliation | 1077 | + + [...] Team Providers + +------+ + | Care Scientific Software Engineer Name | Role | Phone [...] | | | [address] | [place] [address] | | | | | [place] [address] | | | | | | [phone] | | | +--------+ + + + [...] W | | | | | | [facility] | | | | | | [place] [address] | | | | | | [phone] | | | | | | | | +--------+ + + + + | 08/09/ | Virtual | Nephrology | Farrukh Acuna MD | | | 2019 | Office | | [address] [facility] | | | | Visit | | [address] [place], [place] | | | | | | [address] | | | | | | | | +--------+ + + + + documented as of this encounter Procedures + +--------+ + + + | Procedure Name | Priori | Date/Time | Associated Diagnosis | Comments | | | ty | | | | + +--------+ + + + | XR CHEST AP PORTABLE | Routin | 09/28/2014 | | Results for this | | | e | 12:00 AM | | procedure are in the | | | | PDT | | results section. | + +--------+ + + + documented in this encounter Results XR Chest AP Portable (09/28/2014 12:00 AM PDT) + + | Specimen [...]
--- OUTSIDE RECORDS SUMMARY | ~2020-06-08 | XMS | Encounter Summary ---
Demographics + + + | Address | [address] | | | [place] [address] | + + + | Home Phone | | + + + | Preferred Language | Unknown | + + + | Marital Status | Single | + + + | Alevism Affiliation | PRO | + + + | Race | White | + + + | Ethnic Group | Not or | + + + Author + + + | Author | [facility] | + + + | Organization | [facility] | + + + | Address | Unknown | + + + | Phone | Unavailable | + + + Support + + + + + | Name | Relationship | Address | Phone | + + + + + | Darci Zavala | VALERIE | [place] | | | | | [address] | | + + + + + Care Team Providers + +------+ + | Care Senior Loan Processor Name | Role | Phone | + +------+ + PCP | Unavailable | + +------+ + Encounter Details +--------+ + + + + | Date | Type | Department | Care Team | Description | +--------+ + + + + | 09/09/ | Transcribed | Allergy Clinic at | Dictation, Other | Transcribed | | 1995 | | [facility] [address] | | | | | | [address] | | | | | | [place] | | | | | | [address] | | | | | | [place], [place] | | | | | | [address] | | | | | | [phone] | | | +--------+ + + + [...] as of this encounter Progress Notes Interface, Roundhouse Worker In - 02/14/2007 3:12 AM PDT [address] [address] or September 09, 1996 Nestor VALLES MD [address] [place] [address] RE: PORFIRIO ZAVALA MR#: [id number] Valles: Your patient, Porfirio Zavala, was seen for follow up today in the Neurosurgery Clinic at [facility]. 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 Following our initial evaluation, we recommended that he undergo Neuropsychological evaluation per Dr. Khan, as well as nerve blocks of the sciatic nerve and femoral nerve per anesthesia. Unfortunately, neither of these interventions were approved by his insurance company. He, therefore, returns now for further recommendations. Porfirio Zavala is suffering from both chronic stump pain and phantom limb pain. The stump pain could be due to painful neuromas and sciatic and femoral nerve blocks would be useful in determining whether he would benefit from neuroma excision. His pain also has a phantom component which is unlikely to benefit from neuroma excision. In general, stump pain and phantom limb pain can be extremely difficult pain syndromes to treat. The best results in these patients has been obtained with spinal cord stimulation. We have therefore recommended that he undergo a trial of spinal cord stimulation. This involves an outpatient procedure in which an electrode is placed percutaneously and attached to an externalized wire. If, after a week of trial stimulation, he has adequate pain relief, we would proceed with internalization of a stimulating generator. This is the best treatment for this type of pain. We hope that this will be approved by his insurance plan. Any assistance you could provide in this regard would be appreciated. Thank you for allowing us to participate in the care of this patient. If you have any questions regarding our recommendations, please feel free to contact us. Sincerely, Ruben Quinonez M.D. Fellow, Neurosurgery Alina Moise M.D. Professor and Atomizer Assembler, Division of Neurosurgery HECTOR/hiro documented in this encounter Plan of Treatment Not on filedocumented as of this encounter Visit Diagnoses Not on filedocumented in this encounter"
--- OUTSIDE RECORDS SUMMARY | ~2020-06-08 | XMS | Encounter Summary ---
Demographics + + + | Address | [address] | | | [place] [address] | + + + | Home Phone | | + + + | Preferred Language | Unknown | + + + | Marital Status | Single | + + + | Gnosticism Affiliation | PRO | + + + | Race | White | + + + | Ethnic Group | Not or | + + + Author + + + | Author | [facility] | + + + | Organization | [facility] | + + + | Address | Unknown | + + + | Phone | Unavailable | + + + Support + + + + + | Name | Relationship | Address | Phone | + + + + + | Darci Andujar | VALERIE | [place] | | | | | [address] | | + + + + + Care Team Providers + +------+ + | Care Respiratory Assistant Name | Role | Phone | + +------+ + PCP | Unavailable | + +------+ + Encounter Details +--------+ + + + + | Date | Type | Department | Care Team | Description | +--------+ + + + + | 10/08/ | Office | UNKNOWN DEPARTMENT | Note, Outpatient | Progress Note | | 1993 | Visit-Trans | [address] | Clinic | | | | cu[address] | [address] | | | | | | [place], [place] | | | | | | [address] | | | +--------+ + + + [...] as of this encounter Progress Notes Interface, Hand Cigar Maker In - 03/27/2007 3:12 AM PDT CLINIC DATE: GASTROENTEROLOGY CLINIC Mr. 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 The patient, in addition, has an unusual history which involves hemangiomas of the liver, lung, pancreas, kidney and the small intestine which were diagnosed 10 years ago and treated surgically. All the tumors were not removed, and it appears that he may be developing other hemangiomas as he lives. The patient is referred here because he was in the hospital two months ago for pneumonia and at that time he was found to be losing blood. An air contract barium enema (AC-BE) was done to work up the blood loss, and he was found to have an unusual mucosal pattern in the sigmoid and descending colon. Since the patient had a history of polyps times two and had not had a colonoscopy for five years, as well as now an abnormal AC-BE, he was referred to [facility]. MEDICATIONS: 1. Vicodin. 2. Various pain medications for phantom limb pain secondary to his above the knee amputation. 3. Tegretol. 4. Mexiletine. 5. In addition patient is receiving treatments via neural blocks for his phantom limb pain. PHYSICAL EXAMINATION: Mr. Andujar is an alert, oriented, white male in no apparent distress. His vital signs are normal, he is afebrile. LUNGS: Clear to auscultation. HEART: Regular, rate and rhythm without murmur, gallops or rubs. ABD: Large midline abdominal scar, soft, positive bowel sounds, no masses are palpated. RECTAL: Without blood. EXTREM: Left above the knee amputation. LABORATORY EXAMINATION: Not available. Patient does not have the AC-BE with him. I have contacted Dr. Valles who is his physician in [place], [place]. He has made me aware that the AC-BE revealed abnormal mucosal pattern in the sigmoid and possible descending colon. ASSESSMENT: The patient has a history of polyps which have recurred and have been removed times two, and now with a AC-BE showing an abnormality in the distal colon. RECOMMENDATIONS: Colonoscopy to rule out polyp and/or tumor with probable biopsies to be taken. Thomas Dubois M.D. Fellow, Gastroenterology SHANEL/stephon cc: ARIA WATKINS [facility] [place] documented in this encounter Plan of Treatment Not on filedocumented as of this encounter Visit Diagnoses Not on filedocumented in this encounter"
--- OUTSIDE RECORDS SUMMARY | ~2020-06-08 | XMS | Encounter Summary ---
Demographics + + + | Address | [address] | | | [place] [address] | + + + | Home Phone [...] Team Providers + +------+ + | Care Repair Weaver Name | Role | Phone | + +------+ + | Rahul Silva MD | PCP | | + +------+ + Reason for Visit + +--------+ + | Reason | Onset | Comments | | | Date | | + +--------+ + | Lab Results | 09/24/ | | | | 2019 | | + +--------+ + Encounter Details +--------+ + + + + | Date | Type | Department | Care Team | Description | +--------+ + + + + | 09/24/ | Telephone | [facility] | Farrukh Acuna MD | Lab Results | | 2019 | | NEPHROLOGY [place] | [address] [place] | | | | | [address] [place] | [address] [place], [place] | | | | | [address] [place], [place] | [address] | | | | | [address] | | | | | | [phone] | | | +--------+ + + + [...] Miscellaneous Notes Telephone Encounter - Trinidad Simon, Pilot Can Router - 09/24/2019 2:49 PM PDTDr. Shannan bloom reviewed labs and stated that the patient labs show that he is stable. Called Charlotte and informed her of this. She verbalized understanding and had no further que stions at this time.Electronically signed by Trinidad Simon Pilot Can Router at 2018 3:22 PM PDTTelephone Encounter - Trinidad Simon, Pilot Can Router - 09/24/2019 2:46 PM PDTPatients daughter called wanting to know how patients labs are looking. She would like a call back before the weekend. documented in this encounter Plan of Treatment +--------+ + + + + | Date | Type | Specialty | Care Team | Description | +--------+ + + + + | 06/19/ | Office | Pulmonology | Alina Frias | | | 2019 | Visit | | MD Daniel [address] | | | | | | [address] [facility] | | | | | | [place] [address] | | | | | | [phone] | | | | | | | | +--------+ + + + + | 08/09/ | Virtual | Nephrology | Farrukh Acuna MD | | 2019 | Office | | [address] [facility] | | | | Visit | | [address] [place] | | | | | | [address] | | | | | | | | +--------+ + + + + documented as of this encounter Visit Diagnoses Not on filedocumented in this encounter"
--- OUTSIDE RECORDS SUMMARY | ~2020-06-08 | XMS | Encounter Summary ---
Demographics + + + | Address | [address] | | | [place] [address] | + + + | Home Phone | | + + + | Preferred Language | Unknown | + + + | Marital Status | | + + + | Zoroastrianism Affiliation | 1077 | + + + [...] Team Providers + +------+ + | Care Zigzag Elastic Attacher Name | Role | Phone | + [...] [address] | | | | | [place], [place] | [place], [place] | | | | | [address] | [address] | | | | | [phone] | [phone] | | | | | | | [...] | | | | | [place] [address] | | | | | | [phone] | | | | | | | | +--------+ + + + + | 08/09/ | Virtual | Nephrology | Farrukh Acuna MD | | | 2020 | Office | | [address] [facility] [place] | | | | Visit | | [address] [place], [place] | | | | | | [address] | | | | | | | [...]
--- OUTSIDE RECORDS SUMMARY | ~2020-06-08 | XMS | Encounter Summary ---
Demographics + + + | Address | [address] | | | [place] [address] | + + + | Home Phone | | + + + | Preferred Language | Unknown | + + + | Marital Status | | + + + | Evangelical Affiliation | 1077 | + + + | Race | Unknown | + + + | Ethnic Group | Unknown | + + + Author + + + | Author | [facility] | | | and [place] | + + + | Organization | [facility] | | | and [...] Team Providers + +------+ + | Care Diet Aide Name | Role | Phone | + +------+ + | Rahul Silva MD | PCP | | + +------+ + Reason for Visit +--------+--------+ + | Reason | Onset | Comments | | | Date | | +--------+--------+ + | Other | 12/30/ | Medication question. | | | 2020 | | +--------+--------+ + Encounter Details +--------+ + + + + | Date | Type | Department | Care Team | Description | +--------+ + + + + | 12/30/ | Telephone | [facility] | Farrukh Acuna MD | Other (Medication | | 2019 | | NEPHROLOGY [place] | [address] [place] | question.) | | | | [address] [place] | [address] [facility] [place] | | | | | [address] [place], [place] | [address] | | | | | [address] | | | | | | [phone] | | | +--------+ + + + [...] Miscellaneous Notes Telephone Encounter - Trinidad Simon Lap Winding Machine Operator - 12/30/2019 4:35 PM PSTPatie nts daughter called and would like to know if patient can take quinine or chloroquine for le g cramps. Per Dr. Acuna he does not recommend that patient take these medications as they can cause h eart problems. Will call patients daughter and inform of this. She verbalized understanding and had no further questions at this time. Electronically sign ed by Trinidad Simon Lap Winding Machine Operator at 12/30/2019 4:40 PM PSTdocumented in this enc ounter Plan of Treatment +--------+ + + + + | Date | Type | Specialty | Care Team | Description | +--------+ + + + + | 06/19/ | Office | Pulmonology | Alina Frias | | | 2019 | Visit | | MD Daniel [address] | | | | | | [address] | | | | | | [place] [address] | | | | | | [phone] | | | | | | | | +--------+ + + + + | 08/09/ | Virtual | Nephrology | Farrukh Acuna MD | | 2019 | Office | | [address] [facility] | | | | Visit | | [address] [place] | | | | | | [address] | | | | | | | | +--------+ + + + + documented as of this encounter Visit Diagnoses Not on filedocumented in this encounter"
--- OUTSIDE RECORDS SUMMARY | ~2020-06-08 | XMS | Encounter Summary ---
Demographics + + + | Address | [address] | | | [place] [address] | + + + | Home Phone | | + + + | Preferred Language | Unknown | + + + | Marital Status | Single | + + + | Advent Affiliation | PRO | + + + | Race | White | + + + | Ethnic Group | Not or | + + + Author + + + | Author | [facility] | + + + | Organization | [facility] | + + + | Address | Unknown | + + + | Phone | Unavailable | + + + Support + + + + + | Name | Relationship | Address | Phone | + + + + + | Darci Zavala | VALERIE | [place] | | | | | [address] | | + + + + + Care Team Providers + +------+ + | Care Graphic User Interface Designer Name | Role | Phone | [...] [place] | | | | | | [address] | | | | | | [place], [place] | | | | | | [address] | | | | | | [phone] | | | +--------+ + + + [...] as of this encounter Progress Notes Interface, Obstetrics Scrub Nurse In - 12/28/2006 5:10 AM PST [address] [address] or January 31, 1998 GRIFFIN SMILEY MD [address] [place] [address] RE:PORFIRIO ZAVALA MR#:[id number] Smiley: As [...] to hear in our conversation that the [place] [employer] does not cover Ultram in their formulary, since this is a very useful drug in situations exactly like Mr. Heaton. For those patients in whom stronger opiate [...] you again for your feedback on Mr. Zavala's condition and I look forward to hearing from you again in the future. Sincerely, Nelson Melara M.D. Iron Handler, Anesthesiology [facility] MANDY/geovanni documented in this encounter Plan of Treatment Not on filedocumented as of this encounter Visit Diagnoses Not on filedocumented in this encounter"
--- OUTSIDE RECORDS SUMMARY | ~2020-06-08 | XMS | Encounter Summary ---
Demographics + + + | Address | [address] | | | [place] [address] | + + + | Home Phone [...] + + + | Author | [facility] | + + + | Organization | [facility] | + + + | Address | Unknown | + + + | Phone | Unavailable | + + + Support + + + + + | Name | Relationship | Address | Phone | + + + + + | Darci Andujar | VALERIE | [place] | | | | | [address] | | + + + + + Care Team Providers + +------+ + | Care Lead Dental Assistant Name | Role | Phone | + +------+ + PCP | Unavailable | + +------+ + Encounter Details +--------+ + + + + | Date | Type | Department | Care Team | Description | +--------+ + + + + | 04/08/ | Discharge | Allergy Clinic at | Summary, Discharge | D/C Summary ODDS | | 1997 | Summary-Tra | [address] | | | | | [address] | [address] | | | | | | [place] | | | | | | [facility], [address] [place] [address] | | | | | | [place], [place] | | | | | | [address] | | | | | | [phone] | | | +--------+ + + + [...] as of this encounter Discharge Summaries Interface, Manager Plumbing In - 12/22/2006 3:12 AM PST [address] [address] [facility] MEDICAL SUMMARY OF HOSPITALIZATION Med Rec No.: [id number] Admission Date: 04/06/98 Name: Kavon Andujar Discharge Date: 04/08/98 STAFF PHYSICIAN: Galo Arora M.D. Assistant Director Of Public Works, Division of Plastic & Reconstructive Surgery PRINCIPAL FINAL DIAGNOSIS: Status post resection of neuroma, left above-knee amputation. ADDITIONAL DIAGNOSIS(ES): None. PRINCIPAL PROCEDURE: Resection of neuroma, left above-knee amputation stump. REASON FOR ADMISSION: Mr. Andujar is a gentleman who sustained a left above-knee amputation and was complaining of painful neuromas at the stump. HOSPITAL COURSE: The patient was taken to the operating room where sciatic and femoral neuroma were identified and resected. The stump was revised. Postoperatively, the patient did well and was discharged to home on postoperative day number two. CONDITION ON DISCHARGE: Stable. DISCHARGE MEDICATION(S): Velosef. Pain medications were prescribed by the Pain Management team. DISCHARGE INSTRUCTION(S): Followup: In Dr. Arora's clinic in one week. Barry Fofana M.D. Resident, Plastic Surgery Galo Arora M.D. Assistant Director Of Public Works, Division of Plastic & Reconstructive Surgery QIANA/charo P cc: GRIFFIN ASHER MD [address] [facility] [place] [address] documented in this encounter Plan of Treatment Not on filedocumented as of this encounter Visit Diagnoses Not on filedocumented in this encounter"
--- OUTSIDE RECORDS SUMMARY | ~2020-06-08 | XMS | Encounter Summary ---
Demographics + + + | Address | [address] | | | [place] [address] | + + + | Home Phone | | + + + | Preferred Language | Unknown | + + + | Marital Status | | + + + | Congregation Affiliation | 1077 | + + + | Race | Unknown | + + + | Ethnic Group | Unknown | + + + Author + + + | Author | [facility] | | | and [place] | + + + | Organization | [facility] | | [...] Team Providers + +------+ + | Care Technical Operator Name | Role | Phone | [...] [address] | | | | | [place], [place] | [place], [place] | | | | | [address] | [address] | | | | | [phone] | [phone] | | | | | | | [...] | | | | | [place] [address] | | | | | | [phone] | | | | | | | | +--------+ + + + + | 08/09/ | Virtual | Nephrology | Farrukh Acuna MD | | | 2020 | Office | | [address] [facility] [place] | | | | Visit | | [address] [place], [place] | | | | | | [address] | | | | | | | [...] in this encounter Results External Lab: DUNIA (11/09/2016 4:37 AM PST) + + + [...]
--- OUTSIDE RECORDS SUMMARY | ~2020-06-08 | XMS | Encounter Summary ---
Demographics + + + | Address | [address] | | | [place] [address] | + + + | Home Phone | | + + + | Preferred Language | Unknown | + + + | Marital Status | Single | + + + | Mormon Affiliation | PRO | + + + | Race | White | + + + | Ethnic Group | Not or | + + + Author + + + | Organization | Unknown | + + + | Address | Unknown | + + + | Phone | Unavailable | + + + Support + + + + + | Name | Relationship | Address | Phone | + + + + + | Darci Andujar | ECON | [place] | | | | | [address] | | + + + + + Care Team Providers + +------+ + | Care Dry End Tester Name | Role | Phone | + +------+ + PCP | Unavailable | + +------+ + Encounter Details +--------+ + + + + | Date | Type | Department | Care Team | Description | +--------+ + + + + | 12/22/ | Results | | Other, Faculty | | | 1997 | Only | | [phone] | | +--------+ + + + + [...] | + +--------+ + + + | SPINE, LUMBOSACRAL, | Routin | 12/22/1997 | | Results for this | | 2 VIEWS | e | 9:35 AM | | procedure are in the | | | | PST | | results section. | + +--------+ + + + | HIP, 2 VIEWS | Routin | 12/22/1997 | | Results for this | | | e | 9:35 AM | | procedure are in the | | | | PST | | results section. | + +--------+ + + + documented in this encounter Results HIP, 2 VIEWS (12/22/1997 9:35 AM PST) + + + + + + | Component | Value | Ref Range | Performed | Pathologist | | | | | At | Signature | + + + + + + | HIP, 2 | Radiologist 1: GENI, | | | | | VIEWS | MANJU SALDIVAR, | | | | | | P[place]FIRIO [place]ACON | | | | | | | | | | | | | | | | | | -29- AP VIEW OF | | | | | | THE HIPS AND LATERAL | | | | | | VIEW OF THE LEFT HIP: | | | | | | 12/22/96 py2907 hours. | | | | | | Dictated: | | | | | | 12/24/97. COMPARISONS: | | | | | | No previous films are | | | | | | available for | | | | | | comparison. FINDINGS: | | | | | | Radiopaque objects | | | | | | project over the | | | | | | proximal right | | | | | | femoraldiaphysis, the | | | | | | patient reportedly has | | | | | | change in his pocket. | | | | | | The righthip is | | | | | | otherwise intact with no | | | | | | fracture or focal | | | | | | destruction. On the | | | | | | left, there is diffuse | | | | | | osteopenia of the | | | | | | proximal left femur,with | | | | | | apparent resection of | | | | | | the distal left femur as | | | | | | the | | | | | | mid-femoraldiaphysis | | | | | | ends bluntly on the edge | | | | | | of this film. There is | | | | | | no fracture, and the | | | | | | femoral head appears | | | | | | rounded and with anormal | | | | | | contour, and is | | | | | | well-seated within the | | | | | | acetabulum. IMPRESSION: | | | | | | 1. Apparent resection | | | | | | of the left femur, at | | | | | | the mid | | | | | | diaphysis.Diffuse | | | | | | osteopenic appearance is | | | | | | likely secondary to | | | | | | disuse.Comparisons with | | | | | | previous study, however, | | | | | | would be helpful to | | | | | | excludeother permeative | | | | | | processes. 2. No | | | | | | evidence of fracture. | | | | | | END OF IMPRESSION: | | | | + + + + + + + + | Specimen | + + | | + + + + + | Narrative | Performed At | + + + | Ordered by RIO MURRIETA M.D. | | + + + + +---------+ + + | Performing | Address | City/State/Zipcode | Phone Number | | Organization | | | | + +---------+ + + | [facility] | | | | | RADIOLOGY | | | | + +---------+ + + SPINE, LUMBOSACRAL, 2 VIEWS (12/22/1997 9:35 AM PST) + + + + + + | Component | Value | Ref Range | Performed | Pathologist | | | | | At | Signature | + + + + + + | SPINE, | Radiologist 1: GENI, | | | | | LUMBOSACRAL | MANJU SALDIVAR, | | | | | , 2 VIEWS | PORFIRIO CHACON | | | | | | | | | | | | | | | | | | | | | | | | [phone] | | | | | | SPINE, PA AND LATERAL | | | | | | AND SPOT VIEWS: | | | | | | 12/22/97 at 0935 hrs | | | | | | DICTATED: 12/23/97 | | | | | | FINDINGS: The lumbar | | | | | | spine is tilted to the | | | | | | right which may | | | | | | bepositional. The | | | | | | bones are osteopenic, | | | | | | with maintained | | | | | | vertebral bodyand | | | | | | intervertebral disc | | | | | | space heights. There | | | | | | is no evidence | | | | | | offracture or | | | | | | subluxation. There is | | | | | | calcific atherosclerosis | | | | | | of the aorta and pelvic | | | | | | vessels.Surgical clips | | | | | | in the right upper | | | | | | quadrant consistent | | | | | | withcholecystectomy. | | | | | | IMPRESSION: Diffuse | | | | | | osteopenia, otherwise | | | | | | unremarkable lumbosacral | | | | | | spine. END OF | | | | | | IMPRESSION: | | | | + + + + + + + + | Specimen | + + | | + + + + + | Narrative | Performed At | + + + | Ordered by RIO MURRIETA M.D. | | + + + + +---------+ + + | Performing | Address | City/State/Zipcode | Phone Number | | Organization | | | | + +---------+ + + | [facility] | | | | | RADIOLOGY | | | | + +---------+ + + documented in this encounter Visit Diagnoses Not on filedocumented in this encounter"
--- OUTSIDE RECORDS SUMMARY | ~2020-06-08 | XMS | Encounter Summary ---
Demographics + + + | Address | [address] | | | [place] [address] | + + + | Home Phone [...] Team Providers + +------+ + | Care Balance Staff Inspector Name | Role | Phone | [...] | | | [address] | [place] [address] | | | | | [place] [address] | | | | | | [phone] | | | +--------+ + + + [...] | | | | | [place] [address] | | | | | | [phone] | | | | | | | | +--------+ + + + + | 08/09/ | Virtual | Nephrology | Farrukh Acuna MD | | | 2019 | Office | | [address] [facility] | | | | Visit | | [address] [place], [place] | | | | | | [address] | | | | | | | [...]
--- OUTSIDE RECORDS SUMMARY | ~2020-06-08 | XMS | Encounter Summary ---
Demographics + + + | Address | [address] | | | [place] [address] | + + + | Home Phone | | + + + | Preferred Language | Unknown | + + + | Marital Status | | + + + | Restorationist Affiliation | 1077 | + + + | Race | Unknown | + + + | Ethnic Group | Unknown | + + + Author + + + | Author | [facility] | | | and [place] | + + + | Organization | [facility] | | [...] Providers + +------+ + | Care Rubber Molder Name | Role | Phone | + [...] | | | [address], [place] | [address] | | | | | [address] | | | | | | [phone] | | | +--------+ + + + [...] Pulmonology | Alina Frias | | | 2020 | Visit | | MD Daniel [address] | | | | | | [place] | | | | | | [place] [address] | | | | | | [phone] | | | | | | | | +--------+ + + + + | 08/09/ | Virtual | Nephrology | Farrukh Acuna MD | | | 2019 | Office | | [address] [facility] | | | | Visit | | [address] [place], [place] | | | | | | [address] | | | | | | | [...] | | | LAB | | | [facility] | | | | | + + [...]
--- OUTSIDE RECORDS SUMMARY | ~2020-06-08 | XMS | Encounter Summary ---
Demographics + + + | Address | [address] | | | [place] [address] | + + + | Home Phone [...] Team Providers + +------+ + | Care Slate Mixer Name | Role | Phone | [...] [address] | | | | | [place], [place] | [place], [place] | | | | | [address] | [address] | | | | | [phone] | [phone] | | | | | | | [...] | | | | | [place] [address] | | | | | | [phone] | | | | | | | | +--------+ + + + + | 08/09/ | Virtual | Nephrology | Farrukh Acuna MD | | | 2020 | Office | | [address] [facility] | | | | Visit | | [address] [place], [place] | | | | | | [address] | | | | | | | | +--------+ + + + + documented as of this encounter Procedures + +--------+ + + + | Procedure Name | Priori | Date/Time | Associated Diagnosis | Comments | | | ty | | | | + +--------+ + + + | EXTERNAL LAB: [facility] | Routin | 11/08/2016 | | Results for this | | | e | 4:37 AM | | procedure are in the | | | | PST | | results section. | + +--------+ + + + documented in this encounter Results External Lab: [facility] (11/08/2016 4:37 AM PST) + + + + + + | Component | Value | Ref Range | Performed | Pathologist | | | | | At | Signature | + + + + + + | WBC | 7.69 | 3.80 - 11.00 | EXTERNAL | | | | | 10*3/uL | LAB | | + + + + + + | Non- | 2.58 (L) | 4.20 - 5.70 | EXTERNAL | | | Red Blood | | 10*6/uL | LAB | | | Cells | | | | | | Counted | | | | | + + + + + + | Hemoglobin | 7.8 (L) | 13.2 - 17.0 | EXTERNAL | | | | | g/dL | LAB | | + + + + + + | Hematocrit, | 23.5 (L) | 39.0 - 50.0 % | EXTERNAL | | | POC | | | LAB | | + + + + + + | MCV | 91.1 | 80.0 - 100.0 fL | EXTERNAL | | | | | | LAB | | + + + + + + | MCH | 30.3 | 27.0 - 34.0 pg | EXTERNAL | | | | | | LAB | | + + + + + + | MCHC | 33.3 | 32.0 - 35.5 | EXTERNAL | | | | | g/dL | LAB | | + + + + + + | RDW-CV | 48.1 | 37 - 53 fL | EXTERNAL | | | | | | LAB | | + + + + + + | Platelet | 202 | 150 - 400 | EXTERNAL | | | Count | | 10*3/uL | LAB | | | Plasma | | | | | + + + + + + | MPV | 8.9 | fL | EXTERNAL | | | | | | LAB | | + + + + + + | Differentia | AUTOMATED | | EXTERNAL | | | l Type | | | LAB | | + + + + + + | % Segmented | 81.14 | % | EXTERNAL | | | | | | LAB | | | Neutrophils | | | | | + + + + + + | % | 6.57 | % | EXTERNAL | | | Lymphocytes | | | LAB | | + + + + + + | % Monocytes | 9.11 | % | EXTERNAL | | | | | | LAB | | + + + + + + | % | 2.66 | % | EXTERNAL | | | Eosinophils | | | LAB | | + + + + + + | % Basophils | 0.52 | % | EXTERNAL | | | | | | LAB | | + + + + + + | Absolute | 6.24 | 1.90 - 7.40 | EXTERNAL | | | Segmented | | 10*3/uL | LAB | | | Neutrophils | | | | | + + + + + + | Absolute | 0.51 (L) | 1.00 - 3.90 | EXTERNAL | | | Lymphocytes | | 10*3/uL | LAB | | + + + + + + | Absolute | 0.70 | 0.00 - 0.80 | EXTERNAL | | | Monocytes | | 10*3/uL | LAB | | + + + + + + | Absolute | 0.20 | 0.00 - 0.50 | EXTERNAL | [...]
--- OUTSIDE RECORDS SUMMARY | ~2020-06-08 | XMS | Encounter Summary ---
Demographics + + + | Address | [address] | | | [place] [address] | + + + | Home Phone [...] + + + | Darci Zavala | ECON | [place] | | | | | [address] | | + + + + + Care Team Providers + +------+ + | Care Account Technician Name | Role | Phone | + +------+ + PCP | Unavailable | + +------+ + Encounter Details +--------+ + + + + | Date | Type | Department | Care Team | Description | +--------+ + + + + | 03/30/ | Results | | Other, Faculty | | | 1992 | Only | | [phone] | | +--------+ + + + + [...] | + +--------+ + + + | CT PELVIS WO IV | Routin | 04/10/1993 | | Results for this | | CONTRAST | e | 8:44 PM | | procedure are in the | | | | PDT | | results section. | + +--------+ + + + | CT ABDOMEN W IV | Routin | 04/10/1993 | | Results for this | | CONTRAST | e | 8:44 PM | | procedure are in the | | | | PDT | | results section. | + +--------+ + + + | X-RAY CHEST 2 VIEW | Routin | 04/09/1993 | | Results for this | | | e | 1:45 PM | | procedure are in the | | | | PDT | | results section. | + +--------+ + + + | CHEST, 1 VIEW, | Routin | 04/07/1993 | | Results for this | | PORTABLE | e | 2:45 PM | | procedure are in the | | | | PDT | | results section. | + +--------+ + + + | CHEST, 1 VIEW, | Routin | 04/06/1993 | | Results for this | | PORTABLE | e | 6:00 AM | | procedure are in the | | | | PDT | | results section. | + +--------+ + + + | ABDOMEN, 1 VIEW, | Routin | 04/04/1993 | | Results for this | | PORTABLE | e | 1:00 PM | | procedure are in the | | | | PDT | | results section. | + +--------+ + + + | CHEST, 1 VIEW, | Routin | 04/04/1993 | | Results for this | | PORTABLE | e | 6:00 AM | | procedure are in the | | | | PDT | | results section. | + +--------+ + + + | CHEST, 1 VIEW, | Routin | 04/03/1993 | | Results for this | | PORTABLE | e | 3:30 PM | | procedure are in the | | | | PDT | | results section. | + +--------+ + + + | CHEST, 1 VIEW, | Routin | 04/03/1993 | | Results for this | | PORTABLE | e | 5:30 AM | | procedure are in the | | | | PDT | | results section. | + +--------+ + + + | CHEST, 1 VIEW, | Routin | 04/02/1993 | | Results for this | | PORTABLE | e | 9:10 PM | | procedure are in the | | | | PDT | | results section. | + +--------+ + + + | CHEST, 1 VIEW, | Routin | 04/02/1993 | | Results for this | | PORTABLE | e | 6:00 AM | | procedure are in the | | | | PDT | | results section. | + +--------+ + + + | CHEST, 1 VIEW, | Routin | 04/01/1993 | | Results for this | | PORTABLE | e | 8:45 AM | | procedure are in the | | | | PDT | | results section. | + +--------+ + + + | ABDOMEN, 1 VIEW, | Routin | 04/01/1993 | | Results for this | | PORTABLE | e | 7:45 AM | | procedure are in the | | | | PDT | | results section. | + +--------+ + + + | CHEST, 1 VIEW, | Routin | 03/31/1993 | | Results for this | | PORTABLE | e | 9:40 AM | | procedure are in the | | | | PDT | | results section. | + +--------+ + + + | CHEST, 1 VIEW, | Routin | 03/31/1993 | | Results for this | | PORTABLE | e | 4:00 AM | | procedure are in the | | | | PDT | | results section. | + +--------+ + + + | FOOT, 2 VIEWS | Routin | 03/30/1993 | | Results for this | | | e | 11:50 PM | | procedure are in the | | | | PDT | | results section. | + +--------+ + + + | ABDOMEN, 1 VIEW, | Routin | 03/30/1993 | | Results for this | | PORTABLE | e | 11:50 PM | | procedure are in the | | | | PDT | | results section. | + +--------+ + + + | CHEST, 1 VIEW, | Routin | 03/30/1993 | | Results for this | | PORTABLE | e | 10:08 PM | | procedure are in the | | | | PDT | | results section. | + +--------+ + + + documented in this encounter Results CT PELVIS WO CONTRAST (04/10/1993 8:44 PM PDT) + + + + + + | Component | Value | Ref Range | Performed | Pathologist | | | | | At | Signature | + + + + + + | CT PELVIS | Radiologist 1: REGLA | | | | | WO CONTRAST | Edin RENNER | | | | | | MAugustina-Radiologist 2: | | | | | | Edin ARAUZ, | | | | | | PORFIRIO NUNES | | | | | | ARTURO | | | | | | | | | | | | CT ABDOMEN | | | | | | AND PELVIS: 04-10-93 | | | | | | DICTATED: 04-11-93 at | | | | | | 1700 hrs CLINICAL | | | | | | HISTORY: Evaluate for | | | | | | possible hematoma. 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 10 mm | | | | | | contiguous axial slices | | | | | | from the lung bases to | | | | | | the pubicsymphysis were | | | | | | obtained following | | | | | | intravenous and oral | | | | | | contrastadministration. | | | | | | The study was filmed in | | | | | | soft tissue and lung | | | | | | windows. FINDINGS: | | | | | | Comparison is made | | | | | | with the prior CT scan | | | | | | of 09-25-88. 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 On | | | | | | thecurrent examination | | | | | | there is central low | | | | | | attenuation with | | | | | | periperalnodular | | | | | | enhancement. The | | | | | | spleen is homogeneous | | | | | | without evidence offocal | | | | | | masses. The pancreas, | | | | | | kidneys and adrenals | | | | | | appear normal | | | | | | inconfiguration. The | | | | | | ureters assume the | | | | | | normal course and | | | | | | caliber. Gasis noted | | | | | | within the urinary | | | | | | bladder. The bladder is | | | | | | otherwiseunremarkable. | | | | | | There is no evidence of | | | | | | retrocrural, perioaortic | | | | | | ormesenteric | | | | | | adenopathy. There is | | | | | | no evidence of an | | | | | | intraperitonealhematoma. | | | | | | Peripheral | | | | | | calcification of the | | | | | | aorta and the | | | | | | iliacvasculature is | | | | | | present. Asymmetry of | | | | | | the gluteal musculature | | | | | | is noted. The left | | | | | | glutealmuscles appear | | | | | | enlarged and | | | | | | heterogeneous suggestive | | | | | | of hematoma inthis | | | | | | location. There is | | | | | | also abnormal water/soft | | | | | | tissue densityinvolving | | | | | | the subcutaneous fat of | | | | | | the left flank, lateral | | | | | | abdominaland left | | | | | | thoracic wall. This | | | | | | may be edema or hematoma | | | | | | as well. Theosseous | | | | | | structures are | | | | | | unremarkable. | | | | | | IMPRESSION: | | | | | | Heterogeneity of the | | | | | | left gluteus minimus and | | | | | | medius likely | | | | | | reflectinga hematoma in | | | | | | this clinical setting. | | | | | | Abnormal soft tissue | | | | | | densityextending into | | | | | | the subcutaneous fat | | | | | | along the left flank may | | | | | | reflectedema or | | | | | | hemorrhage as well. END | | | | | | OF IMPRESSION: | | | | + + + + + + + + | Specimen | + + | | + + + + + | Narrative | Performed At | + + + | Ordered lulú FALCON | | + + + + +---------+ + + | Performing | Address | City/State/Zipcode | Phone Number | | Organization | | | | + +---------+ + + | [facility] DEPARTMENT OF | | | | | RADIOLOGY | | | | + +---------+ + + CT ABDOMEN W CONTRAST (04/10/1993 8:44 PM PDT) + + + + + + | Component | Value | Ref Range | Performed | Pathologist | | | | | At | Signature | + + + + + + | CT ABDOMEN | Radiologist 1: REGLA, | | | | | W CONTRAST | Edin RENNER | | | | | | Idris-Radiologist 2: | | | | | | Edin ARAUZ | | | | | | PORFIRIO NUNES | | | | | | ARTURO | | | | | | | | | | | | CT ABDOMEN | | | | | | AND PELVIS: 04-10-93 | | | | | | DICTATED: 04-11-93 at | | | | | | 1700 hrs CLINICAL | | | | | | HISTORY: Evaluate for | | | | | | possible hematoma. 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 10 mm | | | | | | contiguous axial slices | | | | | | from the lung bases to | | | | | | the pubicsymphysis were | | | | | | obtained following | | | | | | intravenous and oral | | | | | | contrastadministration. | | | | | | The study was filmed in | | | | | | soft tissue and lung | | | | | | windows. FINDINGS: | | | | | | Comparison is made | | | | | | with the prior CT scan | | | | | | of 09-25-88. 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 On | | | | | | thecurrent examination | | | | | | there is central low | | | | | | attenuation with | | | | | | periperalnodular | | | | | | enhancement. The | | | | | | spleen is homogeneous | | | | | | without evidence offocal | | | | | | masses. The pancreas, | | | | | | kidneys and adrenals | | | | | | appear normal | | | | | | inconfiguration. The | | | | | | ureters assume the | | | | | | normal course and | | | | | | caliber. Gasis noted | | | | | | within the urinary | | | | | | bladder. The bladder is | | | | | | otherwiseunremarkable. | | | | | | There is no evidence of | | | | | | retrocrural, perioaortic | | | | | | ormesenteric | | | | | | adenopathy. There is | | | | | | no evidence of an | | | | | | intraperitonealhematoma. | | | | | | Peripheral | | | | | | calcification of the | | | | | | aorta and the | | | | | | iliacvasculature is | | | | | | present. Asymmetry of | | | | | | the gluteal musculature | | | | | | is noted. The left | | | | | | glutealmuscles appear | | | | | | enlarged and | | | | | | heterogeneous suggestive | | | | | | of hematoma inthis | | | | | | location. There is | | | | | | also abnormal water/soft | | | | | | tissue densityinvolving | | | | | | the subcutaneous fat of | | | | | | the left flank, lateral | | | | | | abdominaland left | | | | | | thoracic wall. This | | | | | | may be edema or hematoma | | | | | | as well. Theosseous | | | | | | structures are | | | | | | unremarkable. | | | | | | IMPRESSION: | | | | | | Heterogeneity of the | | | | | | left gluteus minimus and | | | | | | medius likely | | | | | | reflectinga hematoma in | | | | | | this clinical setting. | | | | | | Abnormal soft tissue | | | | | | densityextending into | | | | | | the subcutaneous fat | | | | | | along the left flank may | | | | | | reflectedema or | | | | | | hemorrhage as well. END | | | | | | OF IMPRESSION: | | | | + + + + + + + + | Specimen | + + | | + + + + + | Narrative | Performed At | + + + | Ordered by JOSE G FALCON | | + + + + +---------+ + + | Performing | Address | City/State/Zipcode | Phone Number | | Organization | | | | + +---------+ + + | [facility] DEPARTMENT OF | | | | | RADIOLOGY | | | | + +---------+ + + CHEST 2 VIEW (04/09/1993 1:45 PM PDT) + + + + + + | Component | Value | Ref Range | Performed | Pathologist | | | | | At | Signature | + + + + + + | CHEST, 2 | Radiologist 1: EMILY | | | | | IAN OR | KYLER | | | | | KALEN | M.D.-Radiologist 2: | | | | | | BRET JOLLEY, | | | | | | MPORFIRIO BROOKS | | | | | | ARTURO | | | | | | | | | | | | | | | | | | [id number] AND | | | | | | LATERAL CHEST, DONE | | | | | | 04/09/93 AT 1345 HOURS: | | | | | | Dictated | | | | | | 04/10/93 at 1200 hours. | | | | | | FINDINGS: Comparison | | | | | | is made with study dated | | | | | | 04/05/93. No new focal | | | | | | osseous abnormality is | | | | | | noted. The overall | | | | | | lung volumesappear to | | | | | | have slightly increased. | | | | | | There has been | | | | | | substantialclearing of | | | | | | the previously described | | | | | | patchy parenchymal | | | | | | densities inboth lungs. | | | | | | Linear streakiness | | | | | | remains to a mild degree | | | | | | on thecurrent | | | | | | radiograph. The | | | | | | cardiomediastinal | | | | | | silhouette is | | | | | | notappreciably different | | | | | | and remains within | | | | | | normal limits. | | | | | | Nosignificant pleural | | | | | | effusions identified but | | | | | | the | | | | | | posteriorcostophrenic | | | | | | angles are excluded from | | | | | | the lateral view. A | | | | | | moderateamount of | | | | | | colonic gas is noted. | | | | | | IMPRESSION: Marked | | | | | | partial resolution of | | | | | | patchy infiltrates, with | | | | | | no acute | | | | | | processidentified on the | | | | | | current radiograph.END | | | | | | OF IMPRESSION: | | | | + + + + + + + + | Specimen | + + | | + + + + + | Narrative | Performed At | + + + | Ordered by JOVANNY SMITH M.D. | | + + + + +---------+ + + | Performing | Address | City/State/Zipcode | Phone Number | | Organization | | | | + +---------+ + + | [facility] DEPARTMENT OF | | | | | RADIOLOGY | | | | + +---------+ + + CHEST, 1 VIEW, PORTABLE (04/07/1993 2:45 PM PDT) + + + + + + | Component | Value | Ref Range | Performed | Pathologist | | | | | At | Signature | + + + + + + | CHEST, 1 | Radiologist 1: | | | | | VIEW, | LALA-VENANCIO SANZ, | | | | | PORTABLE | M.D.-Radiologist 2: | | | | | | SY BROOKS | | | | | | PORFIRIO AYALA | | | | | | F | | | | | | | | | | | | [phone] CHEST, | | | | | | PORTABLE: 04-07-93 AT | | | | | | 1445 HOURS | | | | | | | | | | | | Dictated: 04-08-93 | | | | | | at 1200 Comparison is | | | | | | made with study of | | | | | | 04-06-93. FINDINGS: The | | | | | | lung volumes are lower | | | | | | than on the prior exam. | | | | | | Thereis an otherwise | | | | | | stable appearance of | | | | | | bilateral patchy | | | | | | perihilarinfiltrates | | | | | | bilaterally. The heart | | | | | | and mediastinum are | | | | | | unchanged fromthe prior | | | | | | exam. No new bony | | | | | | changes are appreciated. | | | | | | There has | | | | | | beeninterval removal of | | | | | | the left subclavian | | | | | | line. No pneumothorax | | | | | | isappreciated. | | | | | | IMPRESSION: 1. | | | | | | Interval removal of | | | | | | left subclavian line | | | | | | without pneumothorax. 2. | | | | | | Unchanged appearance | | | | | | of the perihilar | | | | | | infiltrates. END OF | | | | | | IMPRESSION: | | | | + + + + + + + + | Specimen | + + | | + + + + + | Narrative | Performed At | + + + | Ordered by JOSE G FALCON | | + + + + +---------+ + + | Performing | Address | City/State/Zipcode | Phone Number | | Organization | | | | + +---------+ + + | [facility] DEPARTMENT OF | | | | | RADIOLOGY | | | | + +---------+ + + CHEST, 1 VIEW, PORTABLE (04/06/1993 6:00 AM PDT) + + + + + + | Component | Value | Ref Range | Performed | Pathologist | | | | | At | Signature | + + + + + + | CHEST, 1 | Radiologist 1: GABE, | | | | | VIEW, | HARDIK ZAVALA, | | | | | PORTABLE | PORFIRIO | | | | | | 00 78 | | | | | | 29 76 CHEST: 04-06-93 AT | | | | | | 0600 HRS | | | | | | | | | | | | DICTATED: 04-06-93 | | | | | | IMPRESSION: 1. The | | | | | | patient is extubated | | | | | | now. Diffuse pulmonary | | | | | | infiltrates areseen in | | | | | | this individuals low | | | | | | lung volumes. The | | | | | | appearance of thelungs | | | | | | overall has not changed | | | | | | significantly when | | | | | | allowances are madefor | | | | | | slight differences in | | | | | | radiographic technique. | | | | | | END OF IMPRESSION: | | | | + + + + + + + + | Specimen | + + | | + + + + + | Narrative | Performed At | + + + | Ordered by DARSHAN GRIDER | | + + + + +---------+ + + | Performing | Address | City/State/Zipcode | Phone Number | | Organization | | | | + +---------+ + + | [facility] DEPARTMENT OF | | | | | RADIOLOGY | | | | + +---------+ + + ABDOMEN, 1 VIEW, PORTABLE (04/04/1993 1:00 PM PDT) + + + + + + | Component | Value | Ref Range | Performed | Pathologist | | | | | At | Signature | + + + + + + | ABDOMEN, 1 | Radiologist 1: GABE | | | | | DAISY, | HARDIK | | | | | PORTABLE | J.-Radiologist 2: | | | | | | HARDIK BERNAL | | | | | | PORFIRIO PLASENCIA | | | | | | | | | | | | 00 78 | | | | | | 29 76 PORTABLE CHEST: | | | | | | 04-04-93 AT 1300 HRS | | | | | | | | | | | | DICTATED: | | | | | | 04-05-93 IMPRESSION: 1. | | | | | | A feeding tube has | | | | | | been introduced with its | | | | | | tip in theduodenum. 2. | | | | | | The ET tube and | | | | | | subclavian line are | | | | | | unchanged. 3. | | | | | | Unchanged appearance | | | | | | of bilateral patchy | | | | | | densities. PORTABLE | | | | | | CHEST; 04-05-93 AT 0600 | | | | | | HRS IMPRESSION: 1. | | | | | | Slight interval | | | | | | partial clearing of left | | | | | | lower lobe | | | | | | patchydensity. 2. | | | | | | Unchanged appearance | | | | | | of tubes and lines. END | | | | | | OF IMPRESSION: END OF | | | | | | IMPRESSION: | | | | | |END OF IMPRESSION: | | | | + + + + + + + + | Specimen | + + | | + + + + + | Narrative | Performed At | + + + | Ordered by CARRIE WESLEY | | + + + + +---------+ + + | Performing | Address | City/State/Zipcode | Phone Number | | Organization | | | | + +---------+ + + | [facility] DEPARTMENT OF | | | | | RADIOLOGY | | | | + +---------+ + + CHEST, 1 VIEW, PORTABLE (04/04/1993 6:00 AM PDT) + + + + + + | Component | Value | Ref Range | Performed | Pathologist | | | | | At | Signature | + + + + + + | CHEST, 1 | Radiologist 1: GABE, | | | | | DAISY, | HARDIK | | | | | PORTABLE | Carlota.-Radiologist 2: | | | | | | BRET JOLLEY, | | | | | | PORFIRIO NUNES | | | | | | ARTURO | | | | | | | | | | | | | | | | | | [id number] | | | | | | CHEST: 04/04/93, 0600 | | | | | | HOURS | | | | | | Dictated: | | | | | | 04/04/93 IMPRESSION: | | | | | | 1. Slight interval | | | | | | improvement in the | | | | | | appearance of patchy | | | | | | bibasilarinfiltrates in | | | | | | an otherwise stable | | | | | | chest. The position of | | | | | | the tubesand lines is | | | | | | unchanged.END OF | | | | | | IMPRESSION: | | | | + + + + + + + + | Specimen | + + | | + + + + + | Narrative | Performed At | + + + | Ordered by DARSHAN GRIDER | | + + + + +---------+ + + | Performing | Address | City/State/Zipcode | Phone Number | | Organization | | | | + +---------+ + + | [facility] DEPARTMENT OF | | | | | RADIOLOGY | | | | + +---------+ + + CHEST, 1 VIEW, PORTABLE (04/03/1993 3:30 PM PDT) + + + + + + | Component | Value | Ref Range | Performed | Pathologist | | | | | At | Signature | + + + + + + | CHEST, 1 | Radiologist 1: GABE, | | | | | DAISY, | HARDIK | | | | | PORTABLE | Rachel-Radiologist 2: | | | | | | BRET JOLLEY, | | | | | | PORFIRIO NUNES | | | | | | ARTURO | | | | | | | | | | | | | | | | | | [id number] | | | | | | CHEST: 04/03/93, 1530 | | | | | | HOURS | | | | | | Dictated: | | | | | | 04/04/93 IMPRESSION: | | | | | | There is no significant | | | | | | interval change. The | | | | | | left-sided central | | | | | | lineis in the left | | | | | | brachiocephalic vein.END | | | | | | OF IMPRESSION: | | | | + + + + + + + + | Specimen | + + | | + + + + + | Narrative | Performed At | + + + | Ordered by DARSHAN GRIDER | | + + + + +---------+ + + | Performing | Address | City/State/Zipcode | Phone Number | | Organization | | | | + +---------+ + + | [facility] DEPARTMENT OF | | | | | RADIOLOGY | | | | + +---------+ + + CHEST, 1 VIEW, PORTABLE (04/03/1993 5:30 AM PDT) + + + + + + | Component | Value | Ref Range | Performed | Pathologist | | | | | At | Signature | + + + + + + | CHEST, 1 | Radiologist 1: EMILY, | | | | | DAISY, | KYLER | | | | | PORTABLE | M.D.-Radiologist 2: | | | | | | KYLER DIAZ | | | | | | PORFIRIO NUNES | | | | | | ARTURO | | | | | | | | | | | | | | | | | | [id number], | | | | | | PORTABLE, 04/03/93 AT | | | | | | 0530: | | | | | | DICTATED 04/03/93 AT | | | | | | 1400 FINDINGS: There has | | | | | | been marked clearing of | | | | | | the previously | | | | | | described | | | | | | alveolarinfiltrates with | | | | | | persistence of mild | | | | | | cardiomegaly. The | | | | | | tubes andlines are | | | | | | unchanged. Two | | | | | | relatively localized | | | | | | areas of | | | | | | consolidationpersist. | | | | | | The focal infiltrates | | | | | | in the left lower lobe | | | | | | and right upperlobe are | | | | | | worrisome for pulmonary | | | | | | infarct. IMPRESSION: | | | | | | Marked clearing with | | | | | | persistent focal | | | | | | infiltrates in the right | | | | | | upperand left lower | | | | | | lobes. These may | | | | | | represent residual | | | | | | pulmonary edemabut | | | | | | consideration toward | | | | | | pulmonary infarct should | | | | | | be given. | | | | | | Recommendcontinual | | | | | | assessment by serial | | | | | | radiography. END OF | | | | | | IMPRESSION: | | | | + + + + + + + + | Specimen | + + | | + + + + + | Narrative | Performed At | + + + | Ordered by DARSHAN GRIDER | | + + + + +---------+ + + | Performing | Address | City/State/Zipcode | Phone Number | | Organization | | | | + +---------+ + + | [facility] DEPARTMENT OF | | | | | RADIOLOGY | | | | + +---------+ + + CHEST, 1 VIEW, PORTABLE (04/02/1993 9:10 PM PDT) + + + + + + | Component | Value | Ref Range | Performed | Pathologist | | | | | At | Signature | + + + + + + | CHEST, 1 | Radiologist 1: EMILY | | | | | DAISY | KYLER | | | | | PORTABLE | M.D.-Radiologist 2: | | | | | | KYLER DIAZ | | | | | | PORFIRIO NUNES | | | | | | ARTURO | | | | | | | | | | | | | | | | | | [id number], | | | | | | PORTABLE, 04/02/93 AT | | | | | | 2110: | | | | | | DICTATED 04/03/93 AT | | | | | | 1400 FINDINGS: In the | | | | | | interval, there has been | | | | | | the development of | | | | | | extensive | | | | | | patchyconsolidative | | | | | | infiltrates in both | | | | | | lungs, predominating in | | | | | | the upperlobes and | | | | | | perihilar region. The | | | | | | endotracheal tube and | | | | | | [place] Ganzcatheter are | | | | | | unchanged. The | | | | | | nasogastric tube is | | | | | | unchanged. Theoverall | | | | | | heart size is slightly | | | | | | increased from previous. | | | | | | IMPRESSION: Rapid | | | | | | increase in alveolar | | | | | | infiltrates suggesting | | | | | | pulmonary edema. END OF | | | | | | IMPRESSION: | | | | + + + + + + + + | Specimen | + + | | + + + + + | Narrative | Performed At | + + + | Ordered by RADHA BERTRAND M.D. | | + + + + +---------+ + + | Performing | Address | City/State/Zipcode | Phone Number | | Organization | | | | + +---------+ + + | [facility] DEPARTMENT OF | | | | | RADIOLOGY | | | | + +---------+ + + CHEST, 1 VIEW, PORTABLE (04/02/1993 6:00 AM PDT) + + + + + + | Component | Value | Ref Range | Performed | Pathologist | | | | | At | Signature | + + + + + + | CHEST, 1 | Radiologist 1: GABE, | | | | | VIEW, | HARDIK | | | | | PORTABLE | J.-Radiologist 2: | | | | | | HARDIK BERNAL | | | | | | PORFIRIO PLASENCIA | | | | | | | | | | | | [id number] | | | | | | PORTABLE CHEST, 04/02/93 | | | | | | at 0550 hours | | | | | | Dictated 04/02/93 | | | | | | IMPRESSION: 1. Overall | | | | | | slight improvement in | | | | | | bilateral patchy | | | | | | infiltrates whichmay be | | | | | | related in part to | | | | | | slightly better | | | | | | aeration. 2. Tubes and | | | | | | lines unchanged. END OF | | | | | | IMPRESSION: | | | | + + + + + + + + | Specimen | + + | | + + + + + | Narrative | Performed At | + + + | Ordered by STEPHAN WILCOX M.D. | | + + + + +---------+ + + | Performing | Address | City/State/Zipcode | Phone Number | | Organization | | | | + +---------+ + + | [facility] DEPARTMENT OF | | | | | RADIOLOGY | | | | + +---------+ + + CHEST, 1 VIEW, PORTABLE (04/01/1993 8:45 AM PDT) + + + + + + | Component | Value | Ref Range | Performed | Pathologist | | | | | At | Signature | + + + + + + | CHEST, 1 | Radiologist 1: [place], | | | | | VIEW, | Idris MONROY-Radiologist | | | | | PORTABLE | 2: PORFIRIO LAMAS, | | | | | | MPORFIRIO BROOKS F | | | | | | [...] | | | | | | a [place] catheter | | | | | | [...] | | | | placement of a [place] | | | | | | catheter. CHEST, | | | | | | SINGLE AP PORTABLE: | | | | | | 03-31-93 AT 1000 HOURS | | | | | | FINDINGS: Since the | | | | | | prior study, the | | | | | | [place] catheter has | | | | | [...] IMPRESSION: | | | | | | [place] catheter | | | | | | [...] The | | | | | | [place] catheter | | | | | | [...] and | | | | | | [place] catheter | | | | | | [...] endotracheal | | | | | | tube,[place]-Lu[place] catheter | | | | | | [...] | + + + | Ordered by DARSHAN GRIDER | | + + + + +---------+ + + | Performing | Address | City/State/Zipcode | Phone Number | | Organization | | | | + +---------+ + + | [place] [facility]PARTMENT OF | | | | | RADIOLOGY | | | | + +---------+ + + ABDOMEN, 1 VIEW, PORTABLE (04/01/1993 7:45 AM PDT) + + + + + + | Component | Value | Ref Range | Performed | Pathologist | | | | | At | Signature | + + + + + + | ABDOMEN, 1 | Radiologist 1: [place]AMS, | | | | | VIEW, | Idris MONROY-Radiologist | | | | | PORTABLE | 2: PORFIRIO LAMAS, | | | [...] | | | | | | a [place] catheter | | | | | | [...] | | | | placement of a [place] | | | | | | catheter. CHEST, | | | | | | SINGLE AP PORTABLE: | | | | | | 03-31-93 AT 1000 HOURS | | | | | | FINDINGS: Since the | | | | | | prior study, the | | | | | | [place] catheter has | | | | | [...] IMPRESSION: | | | | | | [place] catheter | | | | | | [...] The | | | | | | [place] catheter | | | | | | [...] and | | | | | | [place] catheter | | | | | | [...] endotracheal | | | | | | tube,[place]-Lu[place] catheter | | | | | | [...] | + + + | Ordered by DARSHAN GRIDER | | + + + + +---------+ + + | Performing | Address | City/State/Zipcode | Phone Number | | Organization | | | | + +---------+ + + | [facility] DEPARTMENT OF | | | | | RADIOLOGY | | | | + +---------+ + + CHEST, 1 VIEW, PORTABLE (03/31/1993 9:40 AM PDT) + + + + + + | Component | Value | Ref Range | Performed | Pathologist | | | | | At | Signature | + + + + + + | CHEST, 1 | Radiologist 1: ADAMS, | | | | | VIEW, | Idris MONROY-Radiologist | | | | | PORTABLE | 2: PORFIRIO LAMAS, | | | | | | PORFIRIO NUNES | | | | | | | [...] | | | | | | a [place] catheter | | | | | | [...] | | | | placement of a [place] | | | | | | catheter. CHEST, | | | | | | SINGLE AP PORTABLE: | | | | | | 03-31-93 AT 1000 HOURS | | | | | | FINDINGS: Since the | | | | | | prior study, the | | | | | | [place] catheter has | | | | | [...] IMPRESSION: | | | | | | [place] catheter | | | | | | [...] The | | | | | | [place] catheter | | | | | | [...] and | | | | | | [place] catheter | | | | | | [...] endotracheal | | | | | | tube,[place]-Lu[place] catheter | | | | | | [...] | + + + | Ordered by JESSENIA NOVOA | | + + + + +---------+ + + | Performing | Address | City/State/Zipcode | Phone Number | | Organization | | | | + +---------+ + + | [facility] DEPARTMENT OF | | | | | RADIOLOGY | | | | + +---------+ + + CHEST, 1 VIEW, PORTABLE (03/31/1993 4:00 AM PDT) + + + + + + | Component | Value | Ref Range | Performed | Pathologist | | | | | At | Signature | + + + + + + | CHEST, 1 | Radiologist 1: ADAMS, | | | | | VIEW, | Idris MONROY-Radiologist | | | | | PORTABLE | 2: PORFIRIO LAMAS, | | | [...] | | | | | | a [place] catheter | | | | | | [...] | | | | placement of a [place] | | | | | | catheter. CHEST, | | | | | | SINGLE AP PORTABLE: | | | | | | 03-31-93 AT 1000 HOURS | | | | | | FINDINGS: Since the | | | | | | prior study, the | | | | | | [place] catheter has | | | | | [...] IMPRESSION: | | | | | | [place] catheter | | | | | | [...] The | | | | | | [place] catheter | | | | | | [...] and | | | | | | [place] catheter | | | | | | [...] endotracheal | | | | | | tube,[place] catheter | | | | | | [...] | + + + | Ordered by PAGE VARELA | | + + + + +---------+ + + | Performing | Address | City/State/Zipcode | Phone Number | | Organization | | | | + +---------+ + + | [facility] DEPARTMENT OF | | | | | RADIOLOGY | | | | + +---------+ + + ABDOMEN, 1 VIEW, PORTABLE (03/30/1993 11:50 PM PDT) + + + + + + | Component | Value | Ref Range | Performed | Pathologist | | | | | At | Signature | + + + + + + | ABDOMEN, 1 | Radiologist 1: [place]AMS, | | | | | VIEW, | Idris MONROY-Radiologist | | | | | PORTABLE | 2: PORFIRIO LAMAS | | | | | | IdrisZAVALAPORFIRIO SELBY F | | | | | | [...] | | | | | | a [place] catheter | | | | | | [...] | | | | placement of a [place] | | | | | | catheter. CHEST, | | | | | | SINGLE AP PORTABLE: | | | | | | 03-31-93 AT 1000 HOURS | | | | | | FINDINGS: Since the | | | | | | prior study, the | | | | | | [place] catheter has | | | | | [...] IMPRESSION: | | | | | | [place] catheter | | | | | | [...] The | | | | | | [place] catheter | | | | | | [...] and | | | | | | [place] catheter | | | | | | [...] endotracheal | | | | | | tube,[place] catheter | | | | | | [...] | + + + | Ordered by DARSHAN GRIDER | | + + + + +---------+ + + | Performing | Address | City/State/Zipcode | Phone Number | | Organization | | | | + +---------+ + + | [place] DEPARTMENT OF | | | | | RADIOLOGY | | | | + +---------+ + + FOOT, 2 VIEWS (03/30/1993 11:50 PM PDT) + + + + + + | Component | Value | Ref Range | Performed | Pathologist | | | | | At | Signature | + + + + + + | FOOT, 2 | Radiologist 1: [place]AMS, | | | | | VIEWS | Idris MONROY-Radiologist | | | | [...] | | | | | | [facility] | | | | | | Bilateral [...] | | | | | | a [place] catheter | | | | | | [...] | | | | placement of a [place] | | | | | | catheter. CHEST, | | | | | | SINGLE AP PORTABLE: | | | | | | 03-31-93 AT 1000 HOURS | | | | | | FINDINGS: Since the | | | | | | prior study, the | | | | | | [place] catheter has | | | | | [...] IMPRESSION: | | | | | | [place] catheter | | | | | | [...] The | | | | | | [place] catheter | | | | | | [...] and | | | | | | [place] catheter | | | | | | [...] endotracheal | | | | | | tube,[place] catheter | | | | | | [...] | + + + | Ordered by DARSHAN GRIDER | | + + + + +---------+ + + | Performing | Address | City/State/Zipcode | Phone Number | | Organization | | | | + +---------+ + + | [facility] DEPARTMENT OF | | | | | RADIOLOGY | | | | + +---------+ + + CHEST, 1 VIEW, PORTABLE (03/30/1993 10:08 PM PDT) + + + + + + | Component | Value | Ref Range | Performed | Pathologist | | | | | At | Signature | + + + + + + | CHEST, 1 | Radiologist 1: [place]AMS | | | | | DAISY, | Idris MONROY-Radiologist | | | | | PORTABLE | 2: PORFIRIO LAMAS, | | | [...] | | | | | | a [place] catheter | | | | | | [...] | | | | placement of a [place] | | | | | | catheter. CHEST, | | | | | | SINGLE AP PORTABLE: | | | | | | 03-31-93 AT 1000 HOURS | | | | | | FINDINGS: Since the | | | | | | prior study, the | | | | | | [place] catheter has | | | | | [...] IMPRESSION: | | | | | | [place] catheter | | | | | | [...] The | | | | | | [place] catheter | | | | | | [...] and | | | | | | [place] catheter | | | | | | [...] endotracheal | | | | | | tube,[place]-Lu[place] catheter | | | | | | [...] At | + + + | Ordered lulú LEON | | + + + + +---------+ [...]
--- OUTSIDE RECORDS SUMMARY | ~2020-06-08 | XMS | Encounter Summary ---
Demographics + + + | Address | [address] | | | [place] [address] | + + + | Home Phone | | + + + | Preferred Language | Unknown | + + + | Marital Status | | + + + | Synagogue Affiliation | 1077 | + + + [...] Team Providers + +------+ + | Care Truck Hop Name | Role | Phone | + [...] | | | [address] [place], [place] | [address] | Chronic kidney | | | | [address] | | disease, stage IV | | | | [phone] | | (severe) (HCC); | | | [...] | | | | | | [address] [facility] | | | | | | [place] [address] | | | | | | [phone] | | | | | | | | +--------+ + + + + | 08/09/ | Virtual | Nephrology | Farrukh Acuna MD | | | 2019 | Office | | [address] [facility] | | | | Visit | | [address] | | | | | | [address] | | | | | | | [...]
--- OUTSIDE RECORDS SUMMARY | ~2020-06-08 | XMS | Encounter Summary ---
Demographics + + + | Address | [address] | | | [place] [address] | + + + | Home Phone [...] Team Providers + +------+ + | Care Travel Service Consultant Name | Role | Phone | + +------+ + | Rahul Silva MD | PCP | | + +------+ + Encounter Details +--------+ + + + + | Date | Type | Department | Care Team | Description | +--------+ + + + + | 05/27/ | Orders Only | [facility] | Conversion | | | 2018 | | NEPRHOLOGY [place] | Transaction, | | | | | [address] | Provider Unknown | | | | | [address] [place], [place] | [phone] | | | | | [address] | (Fax) | | | | | [phone] | | | +--------+ + + + [...] | | | | | [place] [address] | | | | | | [phone] | | | | | | | | +--------+ + + + + | 08/09/ | Virtual | Nephrology | Farrukh Acuna MD | | | 2019 | Office | | [address] [facility] | | | | Visit | | [address] [place], [place] | | | | | | [address] | | | | | | | [...] + + + + | Non- | 3.88 (A) | 4.3 - 5.7 [...]
--- OUTSIDE RECORDS SUMMARY | ~2020-06-08 | XMS | Encounter Summary ---
Demographics + + + | Address | [address] | | | [place] [address] | + + + | Home Phone [...] Providers + +------+ + | Care Hand Hose Cutter Name | Role | Phone | + +------+ + | Rahul Silva MD | PCP | | + +------+ + Encounter Details +--------+ + + + + | Date | Type | Department | Care Team | Description | +--------+ + + + + | 08/13/ | Orders Only | [facility] | Farrukh Acuna MD | | | 2017 | | NEPHROLOGY [place] | [address] [place] | | | | | [address] [place] | [address] [place], [place] | | | | | [address] [place], [place] | [address] | | | | | [address] | | | | | | [phone] | | | +--------+ + + + [...] | | | | | [place] [address] | | | | | | [phone] | | | | | | | | +--------+ + + + + | 08/09/ | Virtual | Nephrology | Farrukh Acuna MD | | | 2019 | Office | | [address] [facility] | | | | Visit | | [address] [place], [place] | | | | | | [address] | | | | | | | | +--------+ + + + + documented as of this encounter Procedures + +--------+ + + + | Procedure Name | Priori | Date/Time | Associated Diagnosis | Comments | | | ty | | | | + +--------+ + + + | EXTERNAL LAB: CBC | Routin | 08/13/2017 | | Results for this | | | e | 4:00 PM | | procedure are in the | | | | PDT | | results section. | + +--------+ + + + | PROTEIN/CREATININE | Routin | 08/13/2017 | | Results for this | | RATIO, URINE | e | 4:00 PM | | procedure are in the | | | | PDT | | results section. | + +--------+ + + + | URIC ACID | Routin | 08/13/2017 | | Results for this | | | e | 4:00 PM | | procedure are in the | | | | PDT | | results section. | + +--------+ + + + | PARATHYROID HORMONE, | Routin | 08/13/2017 | | Results for this | | INTACT | e | 4:00 PM | | procedure are in the | | | | PDT | | results section. | + +--------+ + + + | MAGNESIUM | Routin | 08/13/2017 | | Results for this | | | e | 4:00 PM | | procedure are in the | | | | PDT | | results section. | + +--------+ + + + | FERRITIN | Routin | 08/13/2017 | | Results for this | | | e | 4:00 PM | | procedure are in the | | | | PDT | | results section. | + +--------+ + + + | RENAL FUNCTION PANEL | Routin | 08/13/2017 | | Results for this | | | e | 4:00 PM | | procedure are in the | | | | PDT | | results section. | + +--------+ + + + documented in this encounter Results Protein/Creatinine Ratio, Urine (08/13/2017 4:00 PM PDT) + + + + + + | Component | Value | Ref Range | Performed | Pathologist | | | | | At | Signature | + + + + + + | Protein/Cre | 1850.7 (A) | 0 - 150 | EXTERNAL [...] + +---------+ + + External Lab: CBC (08/13/2017 4:00 PM PDT) + + + + + + | Component | Value | Ref Range | Performed | Pathologist | | | | | At | Signature | + + + + + + | WBC | 8.9 | 4.5 - 11.0 10 | EXTERNAL | | | | | | LAB | | + + + + + + | Non- | 3.45 (A) | 4.3 - 5.7 10 | EXTERNAL | | | Red Blood | | | LAB | | | Cells | | | | | | Counted | | | | | + + + + + + | Hemoglobin | 9.6 (A) | 13.5 - 18.0 | EXTERNAL | | | | | g/dL | LAB | | + + + + + + | Hematocrit, | 29.1 (A) | 41 - 50 % | EXTERNAL | | | POC | | | LAB | | + + + + + + | MCV | 84.3 | 81 - 99 fL | EXTERNAL [...] Platelet | 292 | 140 - 440 K/ L | EXTERNAL | | | Count | | | LAB | | | Plasma | | | | | + + + + + + | RDW-CV | 15.3 (A) | 10.5 - 15.0 % | [...] | + +---------+ + + Uric Acid (08/13/2017 4:00 PM PDT) + +-------+ + + + | Component | Value | Ref Range | Performed | Pathologist | | | | | At | Signature | + +-------+ + + + | Uric Acid | 5.7 | 4.4 - 7.6 | EXTERNAL | [...] + +---------+ + + Parathyroid Hormone, Intact (08/13/2017 4:00 PM PDT) + + + + + + | Component | Value | Ref Range | Performed | Pathologist | | | | | At | Signature | + + + + + + | PTH INTACT | 204.4 (A) | 15 - 65 pg/mL | [...] | | + +---------+ + + Magnesium (08/13/2017 4:00 PM PDT) + +---------+ + + + [...] | | + +---------+ + + Ferritin (08/13/2017 4:00 PM PDT) + +-------+ + + + | Component | Value | Ref Range | Performed | Pathologist | | | | | At | Signature | + +-------+ + + + | Ferritin, | 86.68 | 30 - 400 ng/mL | EXTERNAL [...] + +---------+ + + Renal Function Panel (08/13/2017 4:00 PM PDT) + + + + + + | Component | Value | Ref Range | Performed | Pathologist | | | | | At | Signature | + + + + + + | Glucose, | 221 (A) | 70 - 100 mg/dL | EXTERNAL | | | Fasting | | | LAB | | + + + + + + | BUN | 23 | 6 - 23 mg/dL | EXTERNAL | | | | | | LAB | | + + + + + + | Creatinine | 1.99 (A) | 0.70 - 1.18 | EXTERNAL [...] | | | LAB | | | EG[place]IAN | | | | | + + + + + + | Phosphorus, | 4.2 | 2.5 - 5.0 | EXTERNAL | | | Inorganic | | | LAB | | + + + + + + | BUN/Creatin | 11.6 | 6.0 - 28.6 | EXTERNAL | | | ine Ratio | | | LAB | | + + + + + + | Calcium | 8.0 (A) | 8.4 - 10.2 | EXTERNAL | | | | | mg/dL | LAB | | + + + + + + | Estimated | 33 | mg/dL | EXTERNAL | | | [...]
--- OUTSIDE RECORDS SUMMARY | ~2020-06-08 | XMS | Encounter Summary ---
Demographics + + + | Address | [address] | | | [place] [address] | + + + | Home Phone [...] Team Providers + +------+ + | Care Tableau Analyst Name | Role | Phone | [...] | | | [address] | [place] [address] | | | | | [place] [address] | | | | | | [phone] | | | +--------+ + + + [...] | | | | | | [facility] | | | | | | [place] [address] | | | | | | [phone] | | | | | | | | +--------+ + + + + | 08/09/ | Virtual | Nephrology | Farrukh Acuna MD | | | 2019 | Office | | [address] [facility] | | | | Visit | | [address] [place], [place] | | | | | | [address] | | | | | | | | +--------+ + + + + documented as of this encounter Procedures + +--------+ + + + | Procedure Name | Priori | Date/Time | Associated Diagnosis | Comments | | | ty | | | | + +--------+ + + + | XR CHEST AP PORTABLE | Routin | 07/27/2014 | | Results for this | | | e | 12:00 AM | | procedure are in the | | | | PDT | | results section. | + +--------+ + + + documented in this encounter Results XR Chest AP Portable (07/27/2014 12:00 AM PDT) + + | Specimen [...]
--- OUTSIDE RECORDS SUMMARY | ~2020-06-08 | XMS | Encounter Summary ---
Demographics + + + | Address | [address] | | | [place] [address] | + + + | Home Phone [...] Team Providers + +------+ + | Care Deck Specialist Name | Role | Phone | [...] [address] | | | | | [place], [place] | [place], [place] | | | | | [address] | [address] | | | | | [phone] | [phone] | | | | | | | [...] | | | | | [place] [address] | | | | | | [phone] | | | | | | | | +--------+ + + + + | 08/09/ | Virtual | Nephrology | Farrukh Acuna MD | | | 2020 | Office | | [address] [facility] | | | | Visit | | [address] [place], [place] | | | | | | [address] | | | | | | | [...]
--- OUTSIDE RECORDS SUMMARY | ~2020-06-08 | XMS | Encounter Summary ---
Demographics + + + | Address | [address] | | | [place] [address] | + + + | Home Phone [...] + + + | Author | [facility] | + + + | Organization | [facility] | + + + | Address | Unknown | + + + | Phone | Unavailable | + + + Support + + + + + | Name | Relationship | Address | Phone | + + + + + | Darci Andujar | [address] | [place] | | | | | [address] | | + + + + + Care Team Providers + +------+ + | Care Certified Paralegal Name | Role | Phone | + +------+ + PCP | Unavailable | + +------+ + Encounter Details +--------+ + + + + | Date | Type | Department | Care Team | Description | +--------+ + + + + | 12/28/ | Procedure - | Digestive Health | Record, Operation | Operative Report | | 1996 | | Center at [facility] [address] | | | | | Transcribed | [address] [facility] | | | | | | for Health and | | | | | | Healing, [address] | | | | | | [place], [place] | | | | | | [address] | | | | | | [phone] | | | +--------+ + + + [...] | + + | 12/28/1996 12:00 AM [facility] | | [facility] | | [address] [place], [place] [address] | | [facility] | | | | OPERATION RECORD | | | | Med Rec No.: [id number] Date: 12/28/96 | | | | Name: Kavon Andujar | | | | | | ATTENDING SURGEON: Robert Carlson M.D. | | Professor, | | Vascular Surgery | | | | MANAGER PUBLIC(S): Nick Noriega M.D. | | Coach Builder, General Surgery | | | | POSTOPERATIVE DIAGNOSIS(ES): Left stump osteophyte. | | | | OPERATION(S) PERFORMED: Revision of left bgjli-bko-pgoe amputation | | and excision of stump osteophyte. | | | | SPECIMEN(S) REMOVED: 1. Swab of pseudocapsule for culture. | | 2. Osteophyte to Pathology. | | | | ANESTHESIA: General endotracheal anesthesia. 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 He has developed pain over the stump. A recent CT scan showed | | an osteophyte growing on the end of the stump. | | | | PROCEDURE: The patient was taken to the Operating Room. | | General endotracheal anesthesia was | | performed by Anesthesia. The | | left qucqr-weo-hpyp amputation stump was sterilely prepped and draped [...] | | Nick Noriega M.D. | | Coach Builder, General Surgery | | Robert Carlson M.D. | | Professor, | | Vascular Surgery | | | | DOMINIC/jc | | | | A | | | | cc: | | | + + documented in this encounter Visit Diagnoses Not on filedocumented in this encounter"
--- OUTSIDE RECORDS SUMMARY | ~2020-06-08 | XMS | Encounter Summary ---
Demographics + + + | Address | [address] | | | [place] [address] | + + + | Home Phone [...] [place] | | | | | [address] | | + + + + + Care Team Providers + +------+ + | Care Port Crane Operator Name | Role | Phone [...] Clinic | | | | | | [facility], [address] | | | | | | [place], [place] | | | | | | [address] | | | | | | [phone] | | | +--------+ + + + [...] as of this encounter Progress Notes Interface, Content Strategist In - 01/06/2007 5:03 AM PST CLINIC DATE: 11/10/97 [facility] - FOLLOW-UP VISIT SUBJECTIVE: [...] of narcotic medication misuse. Nelson Melara M.D. Back Stayer, [facility] MANDY/camryn cc: Robert Carlson M.D. Professor, Vascular Surgery documented in this encounter Plan of Treatment Not on filedocumented as of this encounter Visit Diagnoses Not on filedocumented in this encounter"
--- OUTSIDE RECORDS SUMMARY | ~2020-06-08 | XMS | Encounter Summary ---
Demographics + + + | Address | [address] | | | [place] [address] | + + + | Home Phone [...] Team Providers + +------+ + | Care Forest Firefighter Name | Role | Phone | + [...] | | | [address] | [place] [address] | | | | | [place] [address] | | | | | | [phone] | | | +--------+ + + + [...] | | | | | | [address] [facility] | | | | | | [place] [address] | | | | | | [phone] | | | | | | | | +--------+ + + + + | 08/09/ | Virtual | Nephrology | Farrukh Acuna MD | | | 2019 | Office | | [address] [facility] | | | | Visit | | [address] [place], [place] | | | | | | [address] | | | | | | | [...]
--- OUTSIDE RECORDS SUMMARY | ~2020-06-08 | XMS | Encounter Summary ---
Demographics + + + | Address | [address] | | | [place] [address] | + + + | Home Phone [...] Team Providers + +------+ + | Care Disbursing Agent Name | Role | Phone | + +------+ + | Rahul Silva MD | PCP | | + +------+ + Encounter Details +--------+ + + + + | Date | Type | Department | Care Team | Description | +--------+ + + + + | 12/07/ | Orders Only | [facility] | Farrukh Acuna MD | Essential | | 2020 | | NEPHROLOGY [place] | [address] [place] | hypertension | | | | [address] [place] | [address] [place], [place] | (Primary Dx); | | | | [address] [place], [place] | [address] | Secondary | | | | [address] | | hyperparathyroidism | | | | [phone] | | (HCC); Anemia of | | | | | | chronic kidney | | | | | | failure, stage 5 | | | | | | ([facility]); CKD (chronic | | | | | | kidney disease) | | | | | | stage 5, GFR less | | | | | | than 15 ml/min | | | | | | ([facility] [...] W | | | | | | [facility] | | | | | | [place] [address] | | | | | | [phone] | | | | | | | | +--------+ + + + + | 08/09/ | Virtual | Nephrology | Farrukh Acuna MD | | | 2019 | Office | | [address] [facility] | | | Visit | | [address] [place] | | | | | | [address] | | | | | | | [...] | | | | (chronic kidney | 12/07/2019 until | | | | | disease) stage 5, | 12/07/2020 | | | | | GFR less than 15 | | | | | | ml/min ([facility]) | | | | | | Persistent | | | | | | proteinuria | | + +------+--------+ + + | CBC with | Lab | Routin | Essential | every 14 days for 2 | | Differential | | e | hypertension CKD | Occurrences starting | | | | | (chronic kidney | 12/07/2019 until | | | | | disease) stage 5, | 12/07/2020 | | | | | GFR less than 15 | | | | | | ml/min ([facility]) | | | | | | Persistent | | | | | | proteinuria | | + +------+--------+ + + | Renal Function Panel | Lab | Routin | Essential | Expected: | | | | e | hypertension CKD | 01/07/2020, Expires: | | | | | (chronic kidney | 12/07/2020 | | | | | disease) stage 5, | | | | | | GFR less than 15 | | | | | | ml/min ([facility]) | | | | | | Persistent | | | | | | proteinuria | | + +------+--------+ + + | CBC with | Lab | Routin | Essential | Expected: | | Differential | | e | hypertension CKD | 01/07/2020, Expires: | | | | | (chronic kidney | 12/07/2020 | | | | | disease) stage 5, | | | | | | GFR less than 15 | | | | | | ml/min ([facility]) | | | | | | Persistent | | | | | | proteinuria | | + +------+--------+ + + | Magnesium | Lab | Routin | Essential | Expected: | | | | e | hypertension CKD | 01/07/2020, Expires: | | | | | (chronic kidney | 12/07/2020 | | | | | disease) stage 5, | | | | | | GFR less than 15 | | | | | | ml/min ([facility]) | | | | | | Persistent | | | | | | proteinuria | | + +------+--------+ + + | Iron and Iron | Lab | Routin | Essential | Expected: | | Binding Capacity | | e | hypertension Anemia | 01/07/2020, Expires: | | | | | of chronic kidney | 12/07/2020 | | | | | failure, stage 5 | | | | | | ([facility]) CKD (chronic | | | | | | kidney disease) | | | | | | stage 5, GFR less | | | | | | than 15 ml/min ([facility]) | | + +------+--------+ + + | Ferritin | Lab | Routin | Essential | Expected: | | | | e | hypertension Anemia | 01/07/2020, Expires: | | | | | of chronic kidney | 12/07/2020 | | | | | failure, stage 5 | | | | | | ([facility]) CKD (chronic | | | | | | kidney disease) | | | | | | stage 5, GFR less | | | | | | than 15 ml/min ([facility]) | | + +------+--------+ + + | Parathyroid Hormone, | Lab | Routin | Essential | Expected: | | Intact | | e | hypertension | 01/07/2020, Expires: | | | | | Secondary | 12/07/2020 | | | | | hyperparathyroidism | | | | | | ([facility]) CKD (chronic | | | | | | kidney disease) | | | | | | stage 5, GFR less | | | | | | than 15 ml/min (HCC) | | | | | | Persistent | | | | | | proteinuria | | + +------+--------+ + + documented as of this encounter Visit Diagnoses + + | Diagnosis | + + | Essential hypertension - Primary Unspecified essential hypertension | + + | Secondary hyperparathyroidism (HCC) Secondary hyperparathyroidism (of renal origin) | + + | Anemia of chronic kidney failure, stage 5 (HCC) | + + | CKD (chronic kidney disease) stage 5, GFR less than 15 ml/min ([facility]) Chronic kidney | | disease, Stage V | + + | Persistent proteinuria Proteinuria | + + documented in this encounter"
--- OUTSIDE RECORDS SUMMARY | ~2020-06-08 | XMS | Encounter Summary ---
Demographics + + + | Address | [address] | | | [place] [address] | + + + | Home Phone [...] Team Providers + +------+ + | Care Set Up Mechanic Crown Assembly Machine Name | Role | Phone | + +------+ + | Rahul Silva MD | PCP | | + +------+ + Reason for Visit + +--------+ + | Reason | Onset | Comments | | | Date | | + +--------+ + | Appointment | 09/28/ | | | | 2019 | | + +--------+ + Encounter Details +--------+ + + + + | Date | Type | Department | Care Team | Description | +--------+ + + + + | 09/28/ | Telephone | [facility] | Sandy Gomez, | Appointment | | 2018 | | VASCULAR SURGERY | RN | | | | | [address] | | | | | | [place] | | | | | | [address] | | | | | | [phone] | | | +--------+ + + + [...] states the patient is currently admitted in [place] and will no t make it to [...] | | | | | [place] [address] | | | | | | [phone] | | | | | | | | +--------+ + + + + | 08/09/ | Virtual | Nephrology | Farrukh Acuna MD | | | 2019 | Office | | [address] [facility] | | | | Visit | | [address] [place] | | | | | | [address] | | | | | | | | +--------+ + + + + documented as of this encounter Visit Diagnoses Not on filedocumented in this encounter"
--- OUTSIDE RECORDS SUMMARY | ~2020-06-08 | XMS | Encounter Summary ---
Demographics + + + | Address | [address] | | | [place] [address] | + + + | Home Phone [...] Providers + +------+ + | Care Religious Leader Name | Role | Phone | + +------+ + | Rahul Silva MD | PCP | | + +------+ + Encounter Details +--------+ + + + + | Date | Type | Department | Care Team | Description | +--------+ + + + + | 10/08/ | Orders Only | [facility] | Farrukh Acuna MD | | | 2018 | | NEPHROLOGY [place] | [address] [place] | | | | | [address] [place] | [address] [place], [place] | | | | | [address] [place], [place] | [address] | | | | | [address] | | | | | | [phone] | | | +--------+ + + + [...] | | | | | [place] [address] | | | | | | [phone] | | | | | | | | +--------+ + + + + | 08/09/ | Virtual | Nephrology | Farrukh Acuna MD | | | 2019 | Office | | [address] [facility] [place] | | | | Visit | | [address] [place], [place] | | | | | | [address] | | | | | | | [...] + + + + | Non- | 3.44 (A) | 4.3 - 5.7 10 | EXTERNAL | | | Red Blood | | | LAB | | | Cells | | | | | | Counted | | | | | + + + + + + | Hemoglobin | 10.2 (A) | 13.5 - 18 [...] | | | LAB | | | [facility] | | | | | + [...]
--- OUTSIDE RECORDS SUMMARY | ~2020-06-08 | XMS | Encounter Summary ---
Demographics + + + | Address | [address] | | | [place] [address] | + + + | Home Phone [...] Team Providers + +------+ + | Care Salesperson Floor Coverings Name | Role | Phone | + +------+ + | Rahul Silva MD | PCP | | + +------+ + Encounter Details +--------+ + + + + | Date | Type | Department | Care Team | Description | +--------+ + + + + | 06/23/ | Orders Only | [facility] | Farrukh Acuna MD | | | 2018 | | NEPHROLOGY [place] | [address] [place] | | | | | [address] [place] | [address] [place], [place] | | | | | [address] [place], [place] | [address] | | | | | [address] | | | | | | [phone] | | | +--------+ + + + [...] | | | | | [place] [address] | | | | | | [phone] | | | | | | | | +--------+ + + + + | 08/09/ | Virtual | Nephrology | Farrukh Acuna MD | | | 2019 | Office | | [address] [facility] | | | | Visit | | [address] [place], [place] | | | | | | [address] | | | | | | | [...]
--- OUTSIDE RECORDS SUMMARY | ~2020-06-08 | XMS | Encounter Summary ---
Demographics + + + | Address | [address] | | | [place] [address] | + + + | Home Phone [...] Providers + +------+ + | Care Supervisor Blueprinting And Photocopy Name | Role | Phone | + [...] [address] | | | | | [place], [place] | [place], [place] | | | | | [address] | [address] | | | | | [phone] | [phone] | | | | | | | [...] | | | | | [place] [address] | | | | | | [phone] | | | | | | | | +--------+ + + + + | 08/09/ | Virtual | Nephrology | Farrukh Acuna MD | | | 2020 | Office | | [address] [facility] [place] | | | | Visit | | [address] [place], [place] | | | | | | [address] | | | | | | | [...]
--- OUTSIDE RECORDS SUMMARY | ~2020-06-08 | XMS | Encounter Summary ---
Demographics + + + | Address | [address] | | | [place] [address] | + + + | Home Phone | | + + + | Preferred Language | Unknown | + + + | Marital Status | | + + + | Yazidi Affiliation | 1077 | + + + | Race | Unknown | + + + | Ethnic Group | Unknown | + + + Author + + + | Author | [facility] | | | and [place] | + + + | Organization | [facility] | | [...] Team Providers + +------+ + | Care Casino Host Name | Role | Phone | + [...] + + | 07/30/ | Telephone | [facility] | Brian Orosco MD | Establish Care | | 2019 | | VASCULAR SURGERY | [address] | (Referral) | | | | [address] [place] | [place], [place] | | | | | [place], [place] | [address] | | | | | [address] | [phone] | | | | | [phone] | | | +--------+ + + + [...] transfer the call to a p erikavidixie service order taker was caller made aware that if at [...] | | | | | [place] [address] | | | | | | [phone] | | | | | | | | +--------+ + + + + | 08/09/ | Virtual | Nephrology | Farrukh Acuna MD | | | 2019 | Office | | [address] [facility] | | | | Visit | | [address] [place] | | | | | | [address] | | | | | | | | +--------+ + + + + documented as of this encounter Visit Diagnoses Not on filedocumented in this encounter"
--- OUTSIDE RECORDS SUMMARY | ~2020-06-08 | XMS | Encounter Summary ---
Demographics + + + | Address | [address] | | | [place] [address] | + + + | Home Phone [...] Team Providers + +------+ + | Care Electrician Supervisor Airplane Name | Role | Phone | + [...] | | | [address] | [place] [address] | | | | | [place] [address] | | | | | | [phone] | | | +--------+ + + + [...] [place] | | | | | | [place] [address] | | | | | | [phone] | | | | | | | | +--------+ + + + + | 08/09/ | Virtual | Nephrology | Farrukh Acuna MD | | 2019 | Office | | [address] [facility] | | | | Visit | | [address] [place] | | | | | | [address] | | | | | | | [...]
--- OUTSIDE RECORDS SUMMARY | ~2020-06-08 | XMS | Encounter Summary ---
Demographics + + + | Address | [address] | | | [place] [address] | + + + | Home Phone [...] + + | Author | [facility] | + + + | Organization | [facility] | + + + | Address | Unknown | + + + | Phone | Unavailable | + + + Support + + + + + | Name | Relationship | Address | Phone | + + + + + | Darci Andujar | [place] | [place] | | | | | [address] | | + + + + + Care Team Providers + +------+ + | Care Solid Tire Finisher Name | Role | Phone | [...] | | [address] | [place], | | | | | [place] | [place] [address] | | | | | [place] | [phone] | | | | | [address] | | | | | | [phone] | | | +--------+ + + + [...] | | | | | | a Hudson-Lupe catheter | | | | | | [...] | | | | placement of a Hudson-Lupe | | | | | | catheter. CHEST, | | | | | | SINGLE AP PORTABLE: | | | | | | 03-31-93 AT 1000 HOURS | | | | | | FINDINGS: Since the | | | | | | prior study, the | | | | | | Hudson-Lupe catheter has | | | | | [...] IMPRESSION: | | | | | | Hudson-Lupe catheter | | | | | | [...] The | | | | | | Hudson-Lupe catheter | | | | | | [...] and | | | | | | Hudson-Lupe catheter | | | | | | [...] endotracheal | | | | | | tube,Hudson-Lupe catheter | | | | | | [...] | | + +---------+ + + | [facility] DEPARTMENT [facility] | | | [...] + + + | [facility] | [address] | [place] [address] | | | PATHOLOGY | [address] | | | + + + + + documented in this encounter Visit Diagnoses Not on filedocumented in this encounter"
--- OUTSIDE RECORDS SUMMARY | ~2020-06-08 | XMS | Encounter Summary ---
Demographics + + + | Address | [address] | | | [place] [address] | + + + | Home Phone [...] Team Providers + +------+ + | Care Brim Buster Name | Role | Phone | + +------+ + | Mehrdad Bergman | PCP | | + +------+ + Encounter Details +--------+ + + + + | Date | Type | Department | Care Team | Description | +--------+ + + + + | 03/27/ | Virtual | [facility] | Farrukh Acuna MD | CKD (chronic kidney | | 2019 | Office | NEPHROLOGY [place] | [address] [place] | disease) stage 5, | | | Visit | [address] | [address] [place], [place] | GFR less than 15 | | | | [address] | [address] | ml/min (HCC) | | | | [place], [place] | | (Primary Dx); Anemia | | | | [address] | | of chronic kidney | | | | [phone] | | failure, stage 5 | | | | | | (HCC); Edema of | | | | | | lower extremity; | | | | | | Vitamin D | | | | | | deficiency; 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, with | | | | | | long-term current | | | | | | use of insulin | | | | | | ([facility]); Secondary | | | | | | hyperparathyroidism | | | | | | ([facility]); Essential | | | | | | hypertension; | | | | | | Tobacco [...] + + documented as of this encounter Patient Instructions Patient Instructions Farrukh Acuna MD - 03/27/2020 2:00 PM PDTDiscussions/Recommendations : I discussed today [...] active and ambulatory carefully as possible. I stopped his Oral Iron. I sent him for an IV Ferahame course. I kept his Aranesp to 100 mcg monthly. I strongly advised him to keep off smoking; I explained the benefits of doing that. He voic ed good understanding. He is to F/U with the Sleep Medicine team. He will F/U with your office regularly. I sent him for a repeat BMP, CBC every 2 weeks. He will have RFP, CBC, Fe studies, Ferritin, intact PTH done before he comes back in 2 m [facility]. documented in this encounter Progress Notes Farrukh Acuna MD - 03/27/2020 2:00 PM PDT Patient Active Problem List [...] pulmonary disease) 02/16/[address] Bergman: I saw your patient Mr. Andujar on [...] 10/2016 with severe pneumonia, severe ZEKE; needed PLANT OPERATIONS MANAGER for ~5 weeks b efore renal function recovery mid 12/2016. He was admitted to [facility] for 3 nights in July 2016 [...] 0 torsemide (DEMADEX) 20 mg tablet, Take 2 tablets by mouth Daily., Disp: 180 tablet, Rf l: 3 TRELEGY ELLIPTA 100-62.5-25 MCG/INH inhaler, inhale 1 puff by mouth once daily, Disp: , Rfl: VENTOLIN HFA 108 (90 Base) MCG/ACT inhaler, inhale 2 puffs by mouth every 4 hours if n eeded for shortness of breath, Disp: , Rfl: 0 Physical Exam: There were no vitals taken for this visit. General appearance: Pleasant, not in acute distress. Neck: Supple without tracheal deviation or jugular venous distension. Head and ENT: Head is atraumatic. Hearing is appropriate. Eyes: Anicteric. The extraocular muscle movements are normal. Lungs: Good chest expansion. Breathing comfortably. Musculoskeletal: No swelling of hand joints bilaterally. No deformities noted. Extremities: Warm to touch with 1+ leg edema, as performed by daughter after coaching on h ow to do it by myself. There is [...] myself. Lab Results Component Value Date HGB 9.2 (A) 03/21/2020 HGB 10.5 (L) 09/07/2019 HCT 31.0 (L) 09/07/2019 NA 140 03/21/2020 K 4.2 03/21/2020 CL 106 03/21/2020 CO2 23 03/21/2020 CO2 29 08/24/2019 BUN 56 (A) 03/21/2020 CREA 4.48 (A) 03/21/2020 CREA 4.60 (A) 08/09/2019 CREA 4.08 (A) 07/19/2019 CALCIUM 7.7 (A) 03/21/2020 CALCIUM 10.5 09/07/2019 ALBUMIN 3.3 (A) 03/21/2020 PHOS 4.2 08/05/2016 EGFR 13.0 (A) 03/21/2020 FERRITIN 107.3 07/19/2019 PTH 146.6 (A) 05/27/2019 LABPROT 6.2 10/10/2019 LABPROT 2445.6 (A) 03/01/2019 Assessment: Mr. Andujar is a 79 y.o. male patient with stage V CKD on a background of diabetes & hyperte nsion and ZEKE's (hospitalization for C-diff and dehydration). The most likely pathology here is that of diabetic nephropathy +/- hypertensive nephrosclerosis/arteriolosclerosis. He was hospitalized in 10/2016 with severe pneumonia, severe ZEKE; needed PLANT OPERATIONS MANAGER for ~5 weeks b efore renal function recovery mid 12/2016. RENAL FUNCTION: Below baseline vs 2015. He had a stage 1 ZEKE (acute kidney injury) in ear ly 07/2017 BLOOD PRESSURE: Reportedly better control, 130's - 140's / 40's - 50's BLOOD SUGAR: Reports it better controlled ELECTROLYTES: Acceptable ANEMIA: Moderate; Fe deficiency is severe now * VITAMIN D: Better with replacement PARATHYROID [...] Also: I see no need for acute PLANT OPERATIONS MANAGER. I see no need to send [...] D3 ) to 2,000 units daily. I stopped his Oral Iron. I sent him for an IV Ferahame course. I kept his Aranesp to 100 mcg monthly. I strongly advised him to keep off smoking; I explained the benefits of doing that. He voic ed good understanding. He is to F/U with the Sleep Medicine team. He will F/U with your office regularly. I sent him for a repeat BMP, CBC every 2 weeks. He will have RFP, CBC, Fe [...] or concerns. Truly yours, Farrukh Acuna MD [facility], [facility] This exam was initially conducted via a secure 256-bit AES encrypted bidirectional video se ssion. You have chosen to receive care through the use of telemedicine. Telemedicine enables [facility] care providers at different locations to provide [...] they are located in a state where I, Farrukh Acuna MD am licensed. documented in this enco unter Plan of Treatment +--------+ + + + + | Date | Type | Specialty | Care Team | Description | +--------+ + + + + | 06/19/ | Office | Pulmonology | Alina Frias | | | 2019 | Visit | | MD Daniel [address] | | | | | [address] [place] | | | | | | [place] [address] | | | | | | [phone] | | | | | | | | +--------+ + + + + | 08/09/ | Virtual | Nephrology | Farrukh Acuna MD | | | 2019 | Office | | [address] [place] | | | | Visit | | [address] [facility] | | | | | | [address] | | | | | | | | +--------+ + + + + documented as of this encounter Visit Diagnoses + + | Diagnosis | + + | CKD (chronic kidney disease) stage 5, GFR less than 15 ml/min ([facility]) - Primary Chronic | | kidney disease, Stage V | + + | Anemia of chronic kidney failure, stage 5 ([facility]) | + + | Edema of lower extremity Edema | + + | Vitamin D deficiency Unspecified vitamin D deficiency | + + | Type 2 diabetes mellitus with diabetic nephropathy, with long-term current use of | | insulin (HCC) | + + | Secondary hyperparathyroidism (HCC) Secondary hyperparathyroidism (of renal origin) | + + | Essential hypertension Unspecified essential hypertension | + + | Tobacco dependence syndrome Tobacco use disorder | + + documented in this encounter
--- OUTSIDE RECORDS SUMMARY | ~2020-06-08 | XMS | Encounter Summary ---
Demographics + + + | Address | [address] | | | [place] [address] | + + + | Home Phone [...] Providers + +------+ + | Care Business Info Consultant Name | Role | Phone | + +------+ + PCP | Unavailable | + +------+ + Encounter Details +--------+ + + + + | Date | Type | Department | Care Team | Description | +--------+ + + + + | 07/18/ | [facility] | [facility] | Nelson Lutz MD | | | 2002 | Encounter | MED CTR GENERIC OP | [address], [place] | | | | | CONV DEPT [address] | [address] [place] | | | | | [place], | [address] | | | | | [place] [address] | | | | | | [phone] | | | +--------+ + + + [...] 06/19/ | Office | Pulmonology | Alina Firas | | | 2019 | Visit | | MD Daniel [address] | | | | | | [place] [facility] | | | | | | [place] [address] | | | | | | [phone] | | | | | | | | +--------+ + + + + | 08/09/ | Virtual | Nephrology | Farrukh Acuna MD | | | 2019 | Office | | [address] [facility] | | | | Visit | | [address] [place], [place] | | | | | | [address] | | | | | | | | +--------+ + + + + documented as of this encounter Visit Diagnoses Not on filedocumented in this encounter"
--- OUTSIDE RECORDS SUMMARY | ~2020-06-08 | XMS | Clinical Summary ---
Demographics + + + | Address | [address] | | | [place] [address] | + + + | Home Phone [...] Author + + + | Author | [facility] | + + + | Organization | [facility] | + + + | Address | Unknown | + + + | Phone | Unavailable | + + + Support + + + + + | Name | Relationship | Address | Phone | + + + + + | Darci Andujar | [place] | [place] | | | | | [address] | | + + + + + Care Team Providers + +------+ + | Care Spring Setter Name | Role | Phone | + +------+ + | Rahul Silva MD | PCP | | + +------+ + Source Comments DAKOTA is fully live on both [facility] and [facility] Allergies No Known Allergies Medications + [...] + + + + + | Pneumococcal | | | | | vaccination (1 of 2 | 5 | | | | - PCV13) | | | | + + + + + | Influenza (Flu) | | | | | vaccination (#1) | 9 | | | + + + + + Results Not on filefrom Last 3 Months
--- OUTSIDE RECORDS SUMMARY | ~2020-06-08 | XMS | Encounter Summary ---
Demographics + + + | Address | [address] | | | [place] [address] | + + + | Home Phone [...] Providers + +------+ + | Care Air Tester Name | Role | Phone | [...] [address] | | | | | [place], [place] | [place], [place] | | | | | [address] | [address] | | | | | [phone] | [phone] | | | | | | | [...] | | | | | [place] [address] | | | | | | [phone] | | | | | | | | +--------+ + + + + | 08/09/ | Virtual | Nephrology | Farrukh Acuna MD | | | 2020 | Office | | [address] [facility] [place] | | | | Visit | | [address] [place], [place] | | | | | | [address] | | | | | | | [...]
--- OUTSIDE RECORDS SUMMARY | ~2020-06-08 | XMS | Encounter Summary ---
Demographics + + + | Address | [address] | | | [place] [address] | + + + | Home Phone [...] Team Providers + +------+ + | Care Uptwist Spinner Name | Role | Phone | + [...] + + | 11/12/ | Documentati | [facility] | Simon, | Results (11/10/19) | | 2019 | on | NEPHROLOGY [place] | [facility] | | | | | [address] | Nozzle Tender | | | | | [address] [place], [place] | | | | | | [address] | | | | | | [phone] | | | +--------+ + + + [...] [address] | | | | | | [place] [address] | | | | | | [phone] | | | | | | | | +--------+ + + + + | 08/09/ | Virtual | Nephrology | Farrukh Acuna MD | | | 2019 | Office | | [address] [place] | | | | Visit | | [address] [facility] | | | | | | [address] | | | | | | | [...]
--- OUTSIDE RECORDS SUMMARY | ~2020-06-08 | XMS | Encounter Summary ---
Demographics + + + | Address | [address] | | | [place] [address] | + + + | Home Phone | | + + + | Preferred Language | Unknown | + + + | Marital Status | Single | + + + | Orthodox Affiliation | PRO | + + + [...] [place] | | | | | [address] | | + + + + + Care Team Providers + +------+ + | Care Lumber Inspector Name | Role | Phone | [...] Note | | 2000 | Visit-Trans | [address] [facility] | [phone] | | | | cu[place] | [address] | | | | | | [place], [place] | | | | | | [address] | | | +--------+ + + + [...] recommend that he see one of our clinical data specialist for further evaluation, and he did appear interested in doing that. 2. Referral to Dr. Willis in Orthopedics. Yuriy Huang M.D. dish network installer HOSEAL / [id number] / [id number] / [id number] / [id number] C: 01/23/2001 nw documented in this encounter Plan of Treatment Not on filedocumented as of this encounter Visit Diagnoses Not on filedocumented in this encounter"
--- OUTSIDE RECORDS SUMMARY | ~2020-06-08 | XMS | Encounter Summary ---
Demographics + + + | Address | [address] | | | [place] [address] | + + + | Home Phone [...] Team Providers + +------+ + | Care Powder Mill Operator Name | Role | Phone [...] | | | MARIA VICTORIA BECERRIL | [place] [address] | | | | | [place] [address] | | | | | | [phone] | | | +--------+ + + + [...] | | | | | [place] [address] | | | | | | [phone] | | | | | | | | +--------+ + + + + | 08/09/ | Virtual | Nephrology | Farrukh Acuna MD | | | 2019 | Office | | [address] [facility] | | | | Visit | | [address] | | | | | | [address] | | | | | | | [...]
--- OUTSIDE RECORDS SUMMARY | ~2020-06-08 | XMS | Encounter Summary ---
Demographics + + + | Address | [address] | | | [place] [address] | + + + | Home Phone [...] [place] | | | | | [address] | | + + + + + Care Team Providers + +------+ + | Care Credit Analysis Manager Name | Role | Phone [...] Rd | | | | | | [place], [place] | | | | | | [address] | | | +--------+ + + + [...] as of this encounter Progress Notes Interface, Advanced Manager In - 03/27/2007 3:12 AM PDT CLINIC [...] AC-BE, he was referred to [facility] for colonoscopy. MEDICATIONS: 1. Vicodin. 2. Various [...] Dr. Valles who is his physician in [place], [place]. He has made me aware that [...] M.D. Fellow, Gastroenterology SHANEL/stephon cc: ARIA WATKINS [facility] [place] documented in this encounter Plan of Treatment Not on filedocumented as of this encounter Visit Diagnoses Not on filedocumented in this encounter"
--- OUTSIDE RECORDS SUMMARY | ~2020-06-08 | XMS | Encounter Summary ---
Demographics + + + | Address | [address] | | | [place] [address] | + + + | Home Phone [...] Team Providers + +------+ + | Care Service Station Attendant Name | Role | Phone | + +------+ + | Rahul Silva MD | PCP | | + +------+ + Encounter Details +--------+ + + + + | Date | Type | Department | Care Team | Description | +--------+ + + + + | 09/18/ | Orders Only | [facility] | Conversion | | | 2018 | | NEPHROLOGY [place] | Transaction, | | | | | [address] | Provider Unknown | | | | | [address] | | | | | | [address] | (Fax) | | | | | [phone] | | | +--------+ + + + [...] | | | | | | [place] [address] | | | | | | [phone] | | | | | | | | +--------+ + + + + | 08/09/ | Virtual | Nephrology | Farrukh Acuna MD | | | 2019 | Office | | [address] [facility] | | | | Visit | | [address] [place], [place] | | | | | | [address] | | | | | | | [...]
--- OUTSIDE RECORDS SUMMARY | ~2020-06-08 | XMS | Clinical Summary ---
Demographics + + + | Address | [address] | | | [place] [address] | + + + | Home Phone [...] Author + + + | Author | [facility] | + + + | Organization | [facility] | + + + | Address | Unknown | + + + | Phone | Unavailable | + + + Support + + + + + | Name | Relationship | Address | Phone | + + + + + | Darci Andujar | VALERIE | [place] | | | | | [address] | | + + + + + Care Team Providers + +------+ + | Care Deputy Probation Officer Name | Role | Phone | + +------+ + | Rahul Silva MD | PCP | | + +------+ + Source Comments [facility] is fully live on both [facility] and [facility] InPatient.[facility] Allergies No Known Allergies Medications + + [...]
--- OUTSIDE RECORDS SUMMARY | ~2020-06-08 | XMS | Encounter Summary ---
Demographics + + + | Address | [address] | | | [place] [address] | + + + | Home Phone [...] Team Providers + +------+ + | Care Electronic Publishing Specialist Name | Role | Phone | [...] | Transaction, | | | | | [place], [place] | Provider Unknown | | | | | [address] | | | | | | [phone] | | | +--------+ + + + [...] | | | | | | [place] [address] | | | | | | [phone] | | | | | | | | +--------+ + + + + | 08/09/ | Virtual | Nephrology | Farrukh Acuna MD | | | 2019 | Office | | [address] [facility] | | | | Visit | | [address] [place] [address] | | | | | | [address] | | | | | | | | +--------+ + + + + documented as of this encounter Procedures + +--------+ + + + | Procedure Name | Priori | Date/Time | Associated Diagnosis | Comments | | | ty | | | | + +--------+ + + + | EXTERNAL LAB: [facility] | Routin | 11/13/2016 | | Results for this | | | e | 4:37 AM | | procedure are in the | | | | PST | | results section. | + +--------+ + + + documented in this encounter Results External Lab: [facility] (11/13/2016 4:37 AM PST) + + + + + + | Component | Value | Ref Range | Performed | Pathologist | | | | | At | Signature | + + + + + + | WBC | 11.47 (H) | 3.80 - 11.00 | EXTERNAL | | | | | 10*3/uL | LAB | | + + + + + + | Non- | 2.98 (L) | 4.20 - 5.70 | EXTERNAL | | | Red Blood | | 10*6/uL | LAB | | | Cells | | | | | | Counted | | | | | + + + + + + | Hemoglobin | 9.0 (L) | 13.2 - 17.0 | EXTERNAL | | | | | g/dL | LAB | | + + + + + + | Hematocrit, | 27.4 (L) | 39.0 - 50.0 % | EXTERNAL | | | POC | | | LAB | | + + + + + + | MCV | 92.1 | 80.0 - 100.0 fL | EXTERNAL | | | | | | LAB | | + + + + + + | MCH | 30.3 | 27.0 - 34.0 pg | EXTERNAL | | | | | | LAB | | + + + + + + | MCHC | 33.0 | 32.0 - 35.5 | EXTERNAL | | | | | g/dL | LAB | | + + + + + + | RDW-CV | 49.4 | 37 - 53 fL | EXTERNAL | | | | | | LAB | | + + + + + + | Platelet | 145 (L) | 150 - 400 | EXTERNAL | [...] + + + | % Segmented | 67.04 | % | EXTERNAL | | | | | | LAB | | | Neutrophils | | | | | + + + + + + | % | 12.03 | % | EXTERNAL | | | Lymphocytes | | | LAB | | + + + + + + | % Monocytes | 11.32 | % | EXTERNAL | | | | | | LAB | | + + + + + + | % | 8.98 | % | EXTERNAL | | | Eosinophils | | | LAB | | + + + + + + | % Basophils | 0.63 | % | EXTERNAL | | | | | | LAB | | + + + + + + | Absolute | 7.69 (H) | 1.90 - 7.40 | EXTERNAL | | | Segmented | | 10*3/uL | LAB | | | Neutrophils | | | | | + + + + + + | Absolute | 1.38 | 1.00 - 3.90 | EXTERNAL | | | Lymphocytes | | 10*3/uL | LAB | | + + + + + + | Absolute | 1.30 (H) | 0.00 - 0.80 | EXTERNAL | | | Monocytes | | 10*3/uL | LAB | | + + + + + + | Absolute | 1.03 (H) | 0.00 - 0.50 | EXTERNAL | [...]
--- OUTSIDE RECORDS SUMMARY | ~2020-06-08 | XMS | Encounter Summary ---
Demographics + + + | Address | [address] | | | [place] [address] | + + + | Home Phone | | + + + | Preferred Language | Unknown | + + + | Marital Status | Single | + + + | Presybeterian Affiliation | PRO | + + + [...] [place] | | | | | [address] | | + + + + + Care Team Providers + +------+ + | Care Photoengraver Name | Role | Phone | + [...] | MD [address] | [address] | | | | | s of | [address] | Ave | | | | | amputation | [place], | [place], [place] | | | | | stump, | [place] [address] | [address] | | | | | unspecified | Phone: | Phone: | | | | | | [phone] | [phone] | | | | | | Fax: | Fax: | | | | | | [phone] | [phone] | +--------+--------+ + + + + Encounter Details +--------+---------+ + + + | Date | Type | Department | Care Team | Description | +--------+---------+ + + + | 04/10/ | Office | [facility] | Seven Reilly MD | Low back pain; | | 2009 | Visit | Pain Center at | [address] | Herniated lumbar | | | | [facility] | [place], [place] | intervertebral disc; | | | | [address] | [address] | Stump pain (HCC) | | | | [facility] | [phone] | | | | | and Healing, | | | | | | Building | | | | | | Floor [place], [place] | | | | | | [address] | | | | | | [phone] | | | +--------+---------+ + + + [...] the trainee's note. Seven Reilly MD, DABA, [facility] P Mariano Pierre MD - 04/10/2010 12:30 PM PDT [facility] Office Visit 04/10/2010 Kavon Andujar; ; : 1940 Mr. Andujar was referred for pain management consultation by RAHUL COYNE MD [address] [place] [address] [address] [place] [address] Reason for visit: Chief Complaint Patient presents [...] pain. He has been referred to the [facility] for consultation regarding this ongoing [...] that the most effective treatments include: medications. SHIPYARD SUPERVISOR Brief Pain Inventory: (ten= worst possible pain [...] above. As part of today's visit the [facility] new patient questionnaire was [...] you expect from your visits to the [facility] ? Don't know Vital [...] have included my personal review of Mr. Adnujar's history and phys ical examination. I also used the following components in my medical decision making: Radiology Reports reviewed. Review and summary of old medical records (source: [employer] as summarized in the body of [...] generic medication. Follow up: none scheduled at [facility]. Mariano Martinez MD Pain Fellow [facility] [place] [facility] documented in this encounter Plan of [...]
--- OUTSIDE RECORDS SUMMARY | ~2020-06-08 | XMS | Encounter Summary ---
Demographics + + + | Address | [address] | | | [place] [address] | + + + | Home Phone [...] [place] | | | | | [address] | | + + + + + Care Team Providers + +------+ + | Care Quality Control Inspector Name | Role | Phone | [...] as of this encounter Progress Notes Interface, Barrel Tester And Drainer In - 11/10/2006 2:27 AM PSTCLINIC DATE: [...] he embarked on this. Galo Arora M.D. Monument Letterer, Plastic and Reconstructive Surgery [id number] / [id number] / [id number] / [id number] cc: Nelson Melara M.D. Anesthesiology. [facility]. [id number] signed by Interface, Barrel Tester And Drainer In at 11/10/2006 2:27 AM PSTdocume nted in this encounter Plan of Treatment Not on filedocumented as of this encounter Visit Diagnoses Not on filedocumented in this encounter"
--- OUTSIDE RECORDS SUMMARY | ~2020-06-08 | XMS | Encounter Summary ---
Demographics + + + | Address | [address] | | | [place] [address] | + + + | Home Phone [...] + +------+ + | Care Non Licensed Nuclear Plant Operator Name | Role | Phone | + +------+ + | Rahul Silva MD | PCP | | + +------+ + Encounter Details +--------+ + + + + | Date | Type | Department | Care Team | Description | +--------+ + + + + | 10/10/ | Orders Only | [facility] | Farrukh Acuna MD | | | 2013 | | NEPHROLOGY [place] | [address] [place] | | | | | [address] [place] | [address] [place], [place] | | | | | [address] [place], [place] | [address] | | | | | [address] | | | | | | [phone] | | | +--------+ + + + [...] | | | | MARIA VICTORIA [facility] | | | | | | [place] [address] | | | | | | [phone] | | | | | | | | +--------+ + + + + | 08/09/ | Virtual | Nephrology | Farrukh Acuna MD | | | 2019 | Office | | [address] [facility] | | | | Visit | | [facility] | | | | | | [address] | | | | | | | [...] | | | LAB | | | SOLOMON ISLANDER | | | | | + [...]
--- OUTSIDE RECORDS SUMMARY | ~2020-06-08 | XMS | Encounter Summary ---
Demographics + + + | Address | [address] | | | [place] [address] | + + + | Home Phone [...] Team Providers + +------+ + | Care Laborer Aquatic Life Name | Role | Phone | + +------+ + | Rahul Silva MD | PCP | | + +------+ + Encounter Details +--------+ + + + + | Date | Type | Department | Care Team | Description | +--------+ + + + + | 08/19/ | Orders Only | [facility] | Conversion | | | 2017 | | NEPHROLOGY [place] | Transaction, | | | | | [address] | Provider Unknown | | | | | [address] [place] [address] | | | | | | [address] | (Fax) | | | | | [phone] | | | +--------+ + + + [...] | | | | | [place] [address] | | | | | | [phone] | | | | | | | | +--------+ + + + + | 08/09/ | Virtual | Nephrology | Farrukh Acuna MD | | | 2019 | Office | | [address] [facility] | | | | Visit | | [address] [place], [place] | | | | | | [address] | | | | | | | [...] | | | LAB | | | KAZAKH | | | | | + + [...]
--- OUTSIDE RECORDS SUMMARY | ~2020-06-08 | XMS | Encounter Summary ---
Demographics + + + | Address | [address] | | | [place] [address] | + + + | Home Phone [...] Team Providers + +------+ + | Care Blacktop Spreader Name | Role | Phone | + [...] | Transaction, | | | | | [place], [place] | Provider Unknown | | | | | [address] | | | | | | [phone] | | | +--------+ + + + [...] | | | | | | [place] [address] | | | | | | [phone] | | | | | | | | +--------+ + + + + | 08/09/ | Virtual | Nephrology | Farrukh Acuna MD | | | 2019 | Office | | [address] [facility] | | | | Visit | | [address] [place] | | | | | | [address] | | | | | | | [...]
--- OUTSIDE RECORDS SUMMARY | ~2020-06-08 | XMS | Encounter Summary ---
Demographics + + + | Address | [address] | | | [place] [address] | + + + | Home Phone [...] Team Providers + +------+ + | Care Button Sewing Machine Operator Name | Role | Phone [...] + + | 08/26/ | Office | [facility] | Trisha Conner DNP | CKD (chronic kidney | | 2019 | Visit | VASCULAR SURGERY | [address] | disease) stage 5, | | | | [address] | [place], [place] | GFR less than 15 | | | | [place], [place] | [address] | ml/min (HCC) | | | | [address] | | (Primary Dx) | | | | [phone] | Brian Orosco MD | | | | | | [address] | | | | | | [place], [place] | | | | | | [address] | | | | | | [phone] | | | | | | | [...] CV: No peripheral edema, rate regular SKIN: [place], warm, dry without rash/lesion MS: ROM not [...] chronic in nature. Signed by: Pravin Abreu, Skip Sign Date/Time: 08/20/2019 4:23 PM Past Medical [...] CV: No peripheral edema, rate regular SKIN: [place], warm, dry without rash/lesion MS: ROM not [...] | | | | | [facility] | | | | | | [place] [address] | | | | | | [phone] | | | | | | | | +--------+ + + + + | 08/09/ | Virtual | Nephrology | Farrukh Acuna MD | | | 2019 | Office | | [address] [facility] | | | | Visit | | [address] [place] | | | | | | [address] | | | | | | | [...] than 15 ml/min (HCC) | | + +------+--------+ + + | CBC no Differential | Lab | Routin | CKD (chronic | 1 Occurrences | | | | e | kidney disease) | starting 08/26/2019 | | | | | stage 5, GFR less | until 08/26/2020 | | | | | than 15 ml/min (HCC) | | + +------+--------+ + + documented as of this encounter Visit Diagnoses + + | Diagnosis | + + | CKD (chronic kidney disease) stage 5, GFR less than 15 ml/min (HCC) - Primary Chronic | | kidney disease, Stage V | + + documented in this encounter"
--- OUTSIDE RECORDS SUMMARY | ~2020-06-08 | XMS | Encounter Summary ---
Demographics + + + | Address | [address] | | | [place] [address] | + + + | Home Phone [...] Author | [facility] | | | and [place] | + [...] Team Providers + +------+ + | Care Continuing Education Director Name | Role | Phone | + +------+ + | Rahul Silva MD | PCP | | + +------+ + Encounter Details +--------+ + + + + | Date | Type | Department | Care Team | Description | +--------+ + + + + | 10/03/ | Orders Only | [facility] | Conversion | | | 2015 | | NEPRHOLOGY [place] | Transaction, | | | | | [address] | Provider Unknown | | | | | [address] [place], [place] | [phone] | | | | | [address] | (Fax) | | | | | [phone] | | | +--------+ + + + [...] | | | | | [place] [address] | | | | | | [phone] | | | | | | | | +--------+ + + + + | 08/09/ | Virtual | Nephrology | Farrukh Acuna MD | | | 2019 | Office | | [address] [facility] | | | | Visit | | [address] [place], [place] | | | | | | [address] | | | | | | | [...] | | | LAB | | | [place] | | | | | + [...]
--- OUTSIDE RECORDS SUMMARY | ~2020-06-08 | XMS | Encounter Summary ---
Demographics + + + | Address | [address] | | | [place] [address] | + + + | Home Phone [...] Team Providers + +------+ + | Care Masonry Teacher Name | Role | Phone | [...] + + | 02/27/ | Documentati | [facility] | Simon, | Results (bmp | | 2019 | on | NEPHROLOGY [place] | Charlie Abdi | 02/24/20) | | | | [address] | Mailmaster | | | | | [address] | | | | | | [place], [place] | | | | | | [address] | | | | | | [phone] | | | +--------+ + + + [...] | 06/19/ | Office | Pulmonology | SloanestephanieAlina | | | 2019 | Visit | | MD Dainel [address] | | | | | | [address] [place] | | | | | | [place] [address] | | | | | | [phone] | | | | | | | | +--------+ + + + + | 08/09/ | Virtual | Nephrology | Farrukh Acuna MD | | | 2019 | Office | | [address] [place] | | | | Visit | | [address] [facility] [place] | | | | | | [address] | | | | | | | [...]
--- OUTSIDE RECORDS SUMMARY | ~2020-06-08 | XMS | Encounter Summary ---
Demographics + + + | Address | [address] | | | [place] [address] | + + + | Home Phone [...] Team Providers + +------+ + | Care Podiatric Assistant Name | Role | Phone | [...] [address] | | | | | [place], [place] | [place], [place] | | | | | [address] | [address] | | | | | [phone] | [phone] | | | | | | | [...] | | | | | [place] [address] | | | | | | [phone] | | | | | | | | +--------+ + + + + | 08/09/ | Virtual | Nephrology | Farrukh Acuna MD | | | 2020 | Office | | [address] [facility] [place] | | | | Visit | | [address] [place], [place] | | | | | | [address] | | | | | | | [...]
--- OUTSIDE RECORDS SUMMARY | ~2020-06-08 | XMS | Encounter Summary ---
Demographics + + + | Address | [address] | | | [place] [address] | + + + | Home Phone [...] Providers + +------+ + | Care Assistant Cross Country Coach Name | Role | Phone | + +------+ + | Rahul Silva MD | PCP | | + +------+ + Encounter Details +--------+ + + + + | Date | Type | Department | Care Team | Description | +--------+ + + + + | 02/15/ | Orders Only | [facility] | Conversion | | | 2019 | | NEPHROLOGY [place] | Transaction, | | | | | [address] | Provider Unknown | | | | | [address] [place] [address] | | | | | | [address] | (Fax) | | | | | [phone] | | | +--------+ + + + [...] | | | | | [place] [address] | | | | | | [phone] | | | | | | | | +--------+ + + + + | 08/09/ | Virtual | Nephrology | Farrukh Acuna MD | | | 2019 | Office | | [address] [facility] | | | | Visit | | [address] [place], [place] | | | | | | [address] | | | | | | | [...]
--- OUTSIDE RECORDS SUMMARY | ~2020-06-08 | XMS | Encounter Summary ---
Demographics + + + | Address | [address] | | | [place] [address] | + + + | Home Phone [...] Team Providers + +------+ + | Care Bank Teller Machine Mechanic Name | Role | Phone | + +------+ + | Rahul Silva MD | PCP | | + +------+ + Encounter Details +--------+ + + + + | Date | Type | Department | Care Team | Description | +--------+ + + + + | 10/03/ | Orders Only | [facility] | Collin Mirza, | | | 2015 | | NEPHROLOGY [place] | AIRCRAFT LOADMASTER SUPERINTENDENT [address] | | | | | [address] [place] | [address] | | | | | [address] [place], [place] | [facility] | | | | | [address] | [address] | | | | | [phone] | [phone] | | | | | | | [...] | | | | | [place] [address] | | | | | | [phone] | | | | | | | | +--------+ + + + + | 08/09/ | Virtual | Nephrology | Farrukh Acuna MD | | | 2019 | Office | | [address] [facility] | | | | Visit | | [address] [place], [place] | | | | | | [address] | | | | | | | [...]
--- OUTSIDE RECORDS SUMMARY | ~2020-06-08 | XMS | Encounter Summary ---
Demographics + + + | Address | [address] | | | [place] [address] | + + + | Home Phone [...] Team Providers + +------+ + | Care Technicians And Trades Workers Name | Role | Phone | + +------+ + | Mehrdad Bergman | PCP | | + +------+ + Encounter Details +--------+ + + + + | Date | Type | Department | Care Team | Description | +--------+ + + + + | 03/28/ | Orders Only | [facility] | Farrukh Acuna MD | Essential | | 2019 | | NEPHROLOGY [place] | [address] [place] | hypertension | | | | [address] | [address] [place], [place] | (Primary Dx); Anemia | | | | [address] | [address] | of chronic kidney | | | | [place], [place] | | failure, stage 5 | | | | [address] | | (HCC); Persistent | | | | [phone] | | proteinuria; CKD | | | | | | (chronic kidney | | | | | | disease) stage 5, | | | | | | GFR less than 15 | | | | | | ml/min ([facility]) | +--------+ + + + + [...] | 06/19/ | Office | Pulmonology | Sloanestephanie Alina | | | 2019 | Visit | | MD Daniel [address] | | | | | | [address] | | | | | | [place] [address] | | | | | | [phone] | | | | | | | | +--------+ + + + + | 08/09/ | Virtual | Nephrology | Farrukh Acuna MD | | | 2019 | Office | | [address] [place] | | | | Visit | | [address] [place] | | | | | | [address] | | | | | | | [...] | 03/28/2021 | | | | | ([facility]) Persistent | | | | | | proteinuria CKD | | | | | | (chronic kidney | | | | | | disease) stage 5, | | | | | | GFR less than 15 | | | | | | ml/min ([facility]) | | + +------+--------+ + + [...] 5 | | | | | | ([facility]) Persistent | | | | | [...] 5 | | | | | | ([facility]) Persistent | | | | | | proteinuria CKD | | | | | | (chronic kidney | | | | | | disease) stage 5, | | | | | | GFR less than 15 | | | | | | ml/min ([facility]) | | + +------+--------+ + + documented as of this encounter Visit Diagnoses + + | Diagnosis | + + | Essential hypertension - Primary Unspecified essential hypertension | + + | Anemia of chronic kidney failure, stage 5 ([facility]) | + + | Persistent proteinuria Proteinuria | + + | CKD (chronic kidney disease) stage 5, GFR less than 15 ml/min ([facility]) Chronic kidney | | disease, Stage V | + + documented in this encounter"
--- OUTSIDE RECORDS SUMMARY | ~2020-06-08 | XMS | Encounter Summary ---
Demographics + + + | Address | [address] | | | [place] [address] | + + + | Home Phone [...] Team Providers + +------+ + | Care Web Designer Name | Role | Phone | [...] POPLAR | (cancellation) | | | | [address] [place], | [place], [place] | | | | | [place] [address] | [id number] | | | | | [phone] | | | +--------+ + + + [...] with Dr. Magana at 1pm for a [employer] consult due to not feeling well. Appointment has not been rescheduled. Patient states they will call back to kee [email or web address] in this encounter Plan of Treatment +--------+ [...] | | | | | [place] [id number] | | | | | | [phone] | | | | | | | | +--------+ + + + + | 08/09/ | Virtual | Nephrology | Farrukh Acuna MD | | | 2019 | Office | | [address] [facility] | | | | Visit | | [address] [place] | | | | | | [address] | | | | | | | | +--------+ + + + + documented as of this encounter Visit Diagnoses Not on filedocumented in this encounter"
--- OUTSIDE RECORDS SUMMARY | ~2020-06-08 | XMS | Encounter Summary ---
Demographics + + + | Address | [address] | | | [place] [address] | + + + | Home Phone [...] [place] | | | | | [address] | | + + + + + Care Team Providers + +------+ + | Care Student Finance Specialist Name | Role | Phone | [...] Vyas | | | | | | [address] | | | | | | [place], [place] | | | | | | [address] | | | | | | [phone] | | | +--------+ + + + [...] as of this encounter Progress Notes Interface, Engineer Geophysical Laboratory In - 12/28/2006 5:10 AM PST [address] [address] or January 31, 1998 GRIFFIN SMILEY MD [address] [place] [address] RE:PORFIRIO ZAVALA MR#:[id number] Smiley: As [...] to hear in our conversation that the [place] [employer] does not cover Ultram in [...] in the future. Sincerely, Nelson Melara M.D. School Clerk, Anesthesiology [facility] MANDY/geovanni documented in this encounter Plan of Treatment Not on filedocumented as of this encounter Visit Diagnoses Not on filedocumented in this encounter"
--- OUTSIDE RECORDS SUMMARY | ~2020-06-08 | XMS | Encounter Summary ---
Demographics + + + | Address | [address] | | | [place] [address] | + + + | Home Phone [...] Providers + +------+ + | Care Senior Portfolio Manager Name | Role | Phone | [...] [address] Young | | | | | [place], [place] | [place], [place] | | | | | [address] | [address] | | | | | [phone] | [phone] | | | | | | | [...] | | | | | [place] [address] | | | | | | [phone] | | | | | | | | +--------+ + + + + | 08/09/ | Virtual | Nephrology | Farrukh Acuna MD | | | 2020 | Office | | [address] [facility] | | | | Visit | | [address] [place], [place] | | | | | | [address] | | | | | | | [...]
--- OUTSIDE RECORDS SUMMARY | ~2020-06-08 | XMS | Encounter Summary ---
Demographics + + + | Address | [address] | | | [place] [address] | + + + | Home Phone [...] Providers + +------+ + | Care Printing Roller Handler Name | Role | Phone | + +------+ + | Mehrdad Bergman | PCP | | + +------+ + Reason for Visit +--------+--------+ + | Reason | Onset | Comments | | | Date | | +--------+--------+ + | Other | 03/20/ | Clarification on lab orders | | | 2020 | | +--------+--------+ + Encounter Details +--------+ + + + + | Date | Type | Department | Care Team | Description | +--------+ + + + + | 03/20/ | Telephone | [facility] | Sandy Capellan | Other (Clarification | | 2020 | | NEPRHOLOGY PAIGE Valadez RN | on lab orders) | | | | [address] | | | | | | [address] [place] | | | | | | [address] | | | | | | [phone] | | | +--------+ + + + [...] Telephone Encounter - Sandy Capellan RN - 03/20/2020 4:39 PM PDTPatient's daughter, Shannan banks, called explaining that they went to [facility] today but were unable to do labs becaus e they were missing the urine order. Explained that per last OV note, Dr Acuna only wanted b lood work and no urine testing was needed. She stated understanding and they will go to [facility] tomorrow for non-fasting blood work. Re-faxed pre-appointment orders (RFP, PTH, ferrit in, iron/iron binding, mag, and CBC) to [facility] in [place] (F#[phone]). Fax confirm ation received. No further questions at this time. documented in this encounter Plan of Treatment +--------+ + + + + | Date | Type | Specialty | Care Team | Description | +--------+ + + + + | 06/19/ | Office | Pulmonology | Alina Frias | | 2019 | Visit | | MD Daniel [address] | | | | | | [address] | | | | | | [place] [address] | | | | | | [phone] | | | | | | | | +--------+ + + + + | 09/09/ | Virtual | Nephrology | Farrukh Acuna MD | | | 2019 | Office | | [address] [facility] | | | | Visit | | [address] [place] | | | | | | [address] | | | | | | | | +--------+ + + + + documented as of this encounter Visit Diagnoses Not on filedocumented in this encounter"
--- OUTSIDE RECORDS SUMMARY | ~2020-06-08 | XMS | Encounter Summary ---
Demographics + + + | Address | [address] | | | [place] [address] | + + + | Home Phone [...] Team Providers + +------+ + | Care Neurology Tech Name | Role | Phone | + +------+ + | Rahul Silva MD | PCP | | + +------+ + Encounter Details +--------+ + + + + | Date | Type | Department | Care Team | Description | +--------+ + + + + | 09/07/ | Orders Only | [facility] | Farrukh Acuna MD | | | 2018 | | NEPRHOLOGY [place] | [address] | | | | | [address] | [address] [place], [place] | | | | | [address] [place], [place] | [address] | | | | | [address] | | | | | | [phone] | | | +--------+ + + + [...] | | | | | [place] [address] | | | | | | [phone] | | | | | | | | +--------+ + + + + | 08/09/ | Virtual | Nephrology | Farrukh Acuna MD | | | 2019 | Office | | [address] [facility] | | | | Visit | | [address] [place], [place] | | | | | | [address] | | | | | | | [...]
--- OUTSIDE RECORDS SUMMARY | ~2020-06-08 | XMS | Encounter Summary ---
Demographics + + + | Address | [address] | | | [place] [address] | + + + | Home Phone [...] [place] | | | | | [address] | | + + + + + Care Team Providers + +------+ + | Care Courtesy Bus Driver Name | Role | Phone | [...] Vyas | | | | | | [facility], [address] [place] [address] | | | | | | [place], [place] | | | | | | [address] | | | | | | [phone] | | | +--------+ + + + [...] as of this encounter Discharge Summaries Interface, Security Guard Supervisor In - 02/05/2007 1:03 AM PST [address] [address] [facility] MEDICAL SUMMARY OF HOSPITALIZATION Med Rec No.: [id number] Admission Date: 12/28/96 Name: Kavon Andujar Discharge Date: 01/03/97 STAFF PHYSICIAN: Robert Carlson M.D. Professor, Vascular Surgery PRINCIPAL FINAL DIAGNOSIS: Osteophyte of left ciwyn-zgr-gkxv amputation stump. ADDITIONAL DIAGNOSES: Phantom pain. PRINCIPAL PROCEDURE: Revision of left cxgyn-tdz-qigj amputation stump and excision of left stump osteophyte. 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 Since then he has had pain in the stump. On a computed tomography (CT) scan, it was noted that he had a large bone spur and a cyst in his stump site. HOSPITAL COURSE: The patient was admitted on December 28 and underwent revision of his left jvewa-mcd-ofco amputation stump with excision of his left [...] Normal. 3. DIET: Normal. Nick Noriega M.D. Rotational Moulding Operator, General Surgery Robert Carlson M.D. Professor, Vascular Surgery DOMINIC/jc A cc: RUBIA KNAPP MD [address] [facility] [address] documented in this encounter Plan of Treatment Not on filedocumented as of this encounter Visit Diagnoses Not on filedocumented in this encounter"
--- OUTSIDE RECORDS SUMMARY | ~2020-06-08 | XMS | Encounter Summary ---
Demographics + + + | Address | [address] | | | [place] [address] | + + + | Home Phone [...] Team Providers + +------+ + | Care Precision Grinder External Name | Role | Phone | + [...] + + | 08/10/ | Telephone | [facility] | Brian Orosco MD | Other (orders ) | | 2019 | | VASCULAR SURGERY | [address] | | | | | [address] | [place], [place] | | | | | [place], [place] | [address] | | | | | [address] | [phone] | | | | | [phone] | | | +--------+ + + + [...] this encounter Miscellaneous Notes Telephone Encounter - Beti Shipman Cookie - 08/10/2019 3:54 PM Haritha, is calling regarding Other (orders ) and would like a call back. Additional Call Details: Requesting call back regarding imaging orders. If this is a symptom based call, was patient offered triage? Not Applicable If this is a symptom based call and you were unable to immediately transfer the call to a rolf munoz pastoral worker was caller made aware that if [...] [address] | | | | | | [place] [address] | | | | | | [phone] | | | | | | | | +--------+ + + + + | 08/09/ | Virtual | Nephrology | Farrukh Acuna MD | | | 2019 | Office | | [address] [facility] | | | | Visit | | [address] [place] | | | | | | [address] | | | | | | | | +--------+ + + + + documented as of this encounter Visit Diagnoses Not on filedocumented in this encounter"
--- OUTSIDE RECORDS SUMMARY | ~2020-06-08 | XMS | Encounter Summary ---
Demographics + + + | Address | [address] | | | [place] [address] | + + + | Home Phone [...] [place] | | | | | [address] | | + + + + + Care Team Providers + +------+ + | Care Inspector Aide Name | Role | Phone | [...] Vyas | | | | | | [facility], [address] [place] [address] | | | | | | [place], [place] | | | | | | [address] | | | | | | [phone] | | | +--------+ + + + [...] as of this encounter Discharge Summaries Interface, Durability Technician In - 12/22/2006 3:12 AM PST [address] [address] [facility] MEDICAL SUMMARY OF HOSPITALIZATION Med Rec No.: [id number] Admission Date: 04/06/98 Name: Kavon Andujar Discharge Date: 04/08/98 STAFF PHYSICIAN: Galo Arora M.D. Supervisor Kosher Dietary Service, Division of Plastic & Reconstructive Surgery PRINCIPAL [...] M.D. Resident, Plastic Surgery Galo Arora M.D. Supervisor Kosher Dietary Service, Division of Plastic & Reconstructive Surgery QIANA/charo P cc: GRIFFIN ASHER MD [address] [facility] [place] [address] documented in this encounter Plan of Treatment Not on filedocumented as of this encounter Visit Diagnoses Not on filedocumented in this encounter"
--- OUTSIDE RECORDS SUMMARY | ~2020-06-08 | XMS | Encounter Summary ---
Demographics + + + | Address | [address] | | | [place] [address] | + + + | Home Phone [...] Team Providers + +------+ + | Care Moss Bleacher Name | Role | Phone | + [...] + + | 07/21/ | Documentati | [facility] | Simon, | Results (07/19/19) | | 2019 | on | NEPHROLOGY [place] | [facility] | | | | | [address] | Base Engineer | | | | | [address] [place], [place] | | | | | | [address] | | | | | | [phone] | | | +--------+ + + + [...] | | | | | [place] [address] | | | | | | [phone] | | | | | | | | +--------+ + + + + | 08/09/ | Virtual | Nephrology | Farrukh Acuna MD | | | 2019 | Office | | [address] [facility] | | | | Visit | | [address] [place], [place] | | | | | | [address] | | | | | | | | +--------+ + + + + documented as of this encounter Procedures + +--------+ + + + | Procedure Name | Priori | Date/Time | Associated Diagnosis | Comments | | | ty | | | | + +--------+ + + + | EXTERNAL LAB: ESA, | Routin | 07/19/2019 | | Results [...]
--- OUTSIDE RECORDS SUMMARY | ~2020-06-08 | XMS | Encounter Summary ---
Demographics + + + | Address | [address] | | | [place] [address] | + + + | Home Phone [...] Author + + + | Author | [facility] | + + + | Organization | [facility] | + + + | Address | Unknown | + + + | Phone | Unavailable | + + + Support + + + + + | Name | Relationship | Address | Phone | + + + + + | Darci Andujar | VALER[address] | [place] | | | | | [address] | | + + + + + Care Team Providers + +------+ + | Care Pinsetter Mechanic Helper Name | Role | Phone | [...] Clinic | | | | | | [facility], [address] | | | | | | [place], [place] | | | | | | [address] | | | | | | [phone] | | | +--------+ + + + [...] of this encounter Progress Notes Interface, Medical Equipment Repairer In - 01/22/2007 3:04 AM PST CLINIC DATE: 06/07/97 NEUROLOGY CLINIC HISTORY OF PRESENT ILLNESS: Mr. Andujar is a 56 year-old male who is being evaluated in the Clinic for problems with balance and tremulousness of both upper extremities. He has been referred to this Clinic by Dr. Valles from [place], [place], and has also previously undergone extensive evaluations in the Neurosurgical Clinic and at Vascular Surgery at [facility]. His most recent hospitalization to [facility] was December 28, 1996, when he underwent [...] evaluation in the Pain Management Clinic at [facility] and previous trials of Neurontin and mexiletine hydrochloride apparently appears to have been unsuccessful. Shortly following his December hospitalization at [facility], Mr. Andujar apparently became comatose in January from an accidental overdose of Darvon for which he was admitted to [facility] in [place], [place]. The details pertaining to this hospitalization are currently not available but as per Mr. Andujar, he was in a coma for a six day period and upon recovery noted tremulousness of both upper extremities, worse on his left than on his right. Prior to his hospitalization at [facility] and following his discharge from [facility], he apparently was ambulating with crutches since the stump pain precluded the use of his left lower extremity prosthesis. Since his discharge from [facility], however, he has been experiencing increasing problems with balance and apparently has fallen on several occasions. The head CT-scan that was done at [facility], dated February 07, 1997, reveals a low attenuation area in the left anterior basal ganglia felt to represent a small lacunar infarct, with no other significant abnormality. Mr. Andujar states that during the course of his hospitalization at [facility] he apparently fell on three occasions sustaining occipital head trauma but did not undergo subsequent brain imaging studies. His stay at [facility] lasted two weeks. By his report, [...] Mr. Andujar specifically denies impairment of hand repairer switchgear, impaired strength in either upper extremity or [...] currently lives in a Foster Home in [place], [place]. 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 He currently smokes one-half osna-ylj-vzr since age 23. Denies current alcohol use [...] in turn led to his hospitalization at [facility] in January 1997 for coma at [...] procedures for pain relief. Michelle Landon M.D. Business Change Manager, Neurology GN:fermin C: 06/28/97 cc: RUBIA VALLES MD [address] [facility] [address] Alina Moise M.D. Professor and Rn Clinical Appeals, Division of Neurosurgery Robert Carlson M.D. Professor, Vascular Surgery documented in this encounter Plan of Treatment Not on filedocumented as of this encounter Visit Diagnoses Not on filedocumented in this encounter"
--- OUTSIDE RECORDS SUMMARY | ~2020-06-08 | XMS | Encounter Summary ---
Demographics + + + | Address | [address] | | | [place] [address] | + + + | Home Phone [...] Team Providers + +------+ + | Care Channel Marketing Specialist Name | Role | Phone [...] [address] Young | | | | | [place], [place] | [place], [place] | | | | | [address] | [address] | | | | | [phone] | [phone] | | | | | | | [...] | | | | | [place] [address] | | | | | | [phone] | | | | | | | | +--------+ + + + + | 08/09/ | Virtual | Nephrology | Farrukh Acuna MD | | | 2020 | Office | | [address] [facility] [address] | | | | Visit | | [address] [place], [place] | | | | | | [address] | | | | | | | [...]
--- OUTSIDE RECORDS SUMMARY | ~2020-06-08 | XMS | Encounter Summary ---
Demographics + + + | Address | [address] | | | [place] [address] | + + + | Home Phone [...] Team Providers + +------+ + | Care Letterpress Printing Machinist Name | Role | Phone | + +------+ + | Rahul Silva MD | PCP | | + +------+ + Encounter Details +--------+ + + + + | Date | Type | Department | Care Team | Description | +--------+ + + + + | 04/10/ | Orders Only | [facility] | Conversion | | | 2014 | | NEPRHOLOGY PAIGE | Transaction, | | | | | [address] | Provider Unknown | | | | | [address] [place], [place] | [phone] | | | | | [address] | (Fax) | | | | | [phone] | | | +--------+ + + + [...] | | | | | [address] [facility] | | | | | | [place] [address] | | | | | | [phone] | | | | | | | | +--------+ + + + + | 08/09/ | Virtual | Nephrology | Farrukh Acuna MD | | | 2019 | Office | | [address] [facility] | | | | Visit | | [address] [place] [address] | | | | | | [address] | | | | | | | [...]
--- OUTSIDE RECORDS SUMMARY | ~2020-06-08 | XMS | Encounter Summary ---
Demographics + + + | Address | [address] | | | [place] [address] | + + + | Home Phone [...] Team Providers + +------+ + | Care Formation Testing Operator Name | Role | Phone | [...] ([facility]) | | | | | [...] + + | 09/10/ | Surgery | [facility] | Brian Orosco MD | INSERTION AV FISTULA | | 2019 | [facility] | [address] | (Right BBF) | | | | OPERATING ROOM [address] | [place] [place], [place] | | | | | [address] | [address] | | | | | [place], [place] | [phone] | | | | | [address] | | | | | | [phone] | | | +--------+---------+ + + + [...] shunt, please contact your ph ysician at [phone]. Discharge instructions for Diagnostic Imaging sedation patients [...] . For any severe symptoms, please call 111 or report to your nearest Emergency Department. Acetaminophen; Hydrocodone tablets or capsules Brand Names: Anexsia, Lorcet, Lorcet HD, Lorcet Plus, Lortab, Trumann, Verdrocet, Vicodin, Vi codin ES, Vicodin HP, [...] information carefully each time. Talk to your mobile ui designer regarding the use of this medicine in children. Special care may be needed. What side effects may I notice from receiving this medicine? Side effects that you should report to your doctor or health child care center administrator as soon as p ossible: allergic reactions [...] (report to your doctor or health child care center administrator if they continue or are bothersome): constipation [...] to an official disposal site. Contact the [facility] at [phone] or your [facility] government to find a site. If you [...] medicine? Tell your doctor or health child care center administrator if your pain does not go away, [...] cuts, scrapes, or blows. Date Last Reviewed: 12/01/201619997077-0038 [employer]. [address] [place] [address]. All righ ts reserved. This information is [...] | | | ([facility]), Secondary | | | | | | | hyperparathyroidism | | | | | | | ([facility]) | | | | | [...] and bl ood clots prevention. Prescription for Trumann given and side effects were explained. Patient states that he also takes oxycodone at home; patient and his family were educated about taki ng oxycodone or Trumann only and not both. OTC Tylenol intake precautions also discussed. Arabella ent and his family verbalized understanding and agreeable. Opportunity to ask questions give n, all questions were answered. Leana Pimentel RN documented in this encounter H&P Notes Brian Orosco MD - 09/10/2019 12:28 PM [facility] Service: Vascular Surgery Pre-Operative History & [...] CV: No peripheral edema, rate regular SKIN: [place], warm, dry without rash/lesion MS: ROM not [...] Orosco MD - 09/10/2019 2:00 PM PDT [facility] Service: Vascular Surgery Operative Note Pre-operative Diagnosis: CKD and need for residential dialysis access Post-operative Diagnosis: same Procedure(s): Right brachiocephalic fistula creation Surgeon: Brian Orosco MD Auto Parker(s): None Anesthesia: Monitor Anesthesia care and Local [...] | | | | | [place] [address] | | | | | | [phone] | | | | | | | | +--------+ + + + + | 09/09/ | Virtual | Nephrology | Farrukh Acuna MD | | | 2019 | Office | | [address] [facility] | | | | Visit | | [address] [place], [place] | | | | | | [address] | | | | | | | [...] Testing | 65 - 99 mg/dL | [facility] | | | POC | performed at [facility];[address] | | LABORATORY | | | | [address];[place], [place] | | | | | | [address] | | | | + + + + + + + + | Specimen | + + | | + + + + + + + | Performing | Address | City/State/Zipcode | Phone Number | | Organization | | | | + + + + + | [facility] | [address] | [place] [address] | [phone] | + + + + + POC [...] | | | POC | performed at [facility];[address] | | LABORATORY | | | | [address];[place] | | | | | | [address] | | | | + + + + + + + + | Specimen | + + | | + + + + + + + | Performing | Address | City/State/Zipcode | Phone Number | | Organization | | | | + + + + + | [facility] | [address] | [place] [address] | [phone] | + + + + + documented in this encounter Visit Diagnoses + + | Diagnosis | + + | CKD (chronic kidney disease) stage 5, GFR less than 15 ml/min ([facility]) Chronic kidney | | disease, Stage V | + + documented in this encounter Admitting Diagnoses + + | Diagnosis | + + | CKD (chronic kidney disease) stage 5, GFR less than 15 ml/min ([facility]) Chronic kidney | | disease, Stage V | + + documented in this encounter Administered Medications + +--------+ +---------+------+------+ | Medication Order | MAR | Action | Dose | Rate | Site | | | Action | Date | | | | + +--------+ +---------+------+------+ | albuterol 1.25 mg/3 mL | Given | 10/11/20 | 1.25 mg | | | | [...] One week or | | | longer, yboziw-aqe-wbffp use of | | | at least [...]
--- OUTSIDE RECORDS SUMMARY | ~2020-06-08 | XMS | Encounter Summary ---
Demographics + + + | Address | [address] | | | [place] [address] | + + + | Home Phone [...] Providers + +------+ + | Care Automation Sales Manager Name | Role | Phone [...] [address] | | | | | [place], [place] | [place], [place] | | | | | [address] | [address] | | | | | [phone] | [phone] | | | | | | | [...] | | | | | [place] [address] | | | | | | [phone] | | | | | | | | +--------+ + + + + | 08/09/ | Virtual | Nephrology | Farrukh Acuna MD | | | 2020 | Office | | [address] [facility] | | | | Visit | | [address] [place], [place] | | | | | | [address] | | | | | | | [...]
--- OUTSIDE RECORDS SUMMARY | ~2020-06-08 | XMS | Encounter Summary ---
Demographics + + + | Address | [address] | | | [place] [address] | + + + | Home Phone [...] [place] | | | | | [address] | | + + + + + Care Team Providers + +------+ + | Care Statue Maker Name | Role | Phone | [...] [id number] | | | | | | [place], [place] | | | | | | [address] | | | | | | [phone] | | | +--------+ + + + [...] + + + + | [facility] | [address] | [place] [address] | | | PATHOLOGY | [address] [...] + + + + | [facility] | [address] | [place] [address] | | | PATHOLOGY | [address] [...] | + + + + + | [facility] | [address] | [place] [address] | | | PATHOLOGY | [address] | | | + + + + + SURGICAL PATHOLOGY (04/06/1998) + + + + + + | Component | Value | Ref Range | Performed | Pathologist | | | | | At | Signature | + + + + + + | SURGICAL | SOURCE OF SPECIMEN: SEE | | [facility] | | | PATHOLOGY | RESULTS | [...] Dempsey, | | | | | | IdrisCase staffed by: | | | | | [...] + + + + | [facility] | [address] | [place] [address] | | | PATHOLOGY | [address] | | | + + + + + documented in this encounter Visit Diagnoses Not on filedocumented in this encounter
--- OUTSIDE RECORDS SUMMARY | ~2020-06-08 | XMS | Encounter Summary ---
Demographics + + + | Address | [address] | | | [place] [address] | + + + | Home Phone | | + + + | Preferred Language | Unknown | + + + | Marital Status | Single | + + + | Taoist Affiliation | PRO | + + + [...] [place] | | | | | [address] | | + + + + + Care Team Providers + +------+ + | Care School Office Assistant Name | Role | Phone | [...] Vyas | | | | | | [address] | | | | | | [place], [place] | | | | | | [address] | | | | | | [phone] | | | +--------+ + + + [...] as of this encounter Progress Notes Interface, Plater Production In - 02/17/2007 3:02 AM PDT [address] [address] or August 05, 1996 RUBIA VALLES MD [address] [facility] [address] RE:PORFIRIO ZAVALA MR#:[id number] Valles: Mr. Porfirio Zavala returned to the [facility] today for a followup visit. As you recall, he is a 56-year-old man with stump pain and phantom pain secondary to left leg nfpuh-ttq-yfmi amputation. Mr. Zavala has failed numerous femoral nerve blocks, sciatic nerve blocks, and spinal cord blocks, and was at one time enrolled in the [facility] Pain [facility]. Mr. Zavala's pain [...] dictating for: Alina Moise M.D. Professor and Computed Tomography Scanner Operator, Division of Neurosurgery MARYANA/sajan cc: Seven Khan, Ph.D. Clinical Psychologist-Neuropsychologist documented in this encounter Plan of Treatment Not on filedocumented as of this encounter Visit Diagnoses Not on filedocumented in this encounter"
--- OUTSIDE RECORDS SUMMARY | ~2020-06-08 | XMS | Encounter Summary ---
Demographics + + + | Address | [address] | | | [place] [address] | + + + | Home Phone [...] Providers + +------+ + | Care Public Information Specialist Name | Role | Phone | [...] | | | MARIA VICTORIA BECERRIL | [place] [address] | | | | | [place] [address] | | | | | | [phone] | | | +--------+ + + + [...] | | | | | | [facility] | | | | | | [place] [address] | | | | | | [phone] | | | | | | | | +--------+ + + + + | 08/09/ | Virtual | Nephrology | Farrukh Acuna MD | | | 2019 | Office | | [address] [facility] | | | | Visit | | [address] [place], [place] | | | | | | [address] | | | | | | | [...]
--- OUTSIDE RECORDS SUMMARY | ~2020-06-08 | XMS | Encounter Summary ---
Demographics + + + | Address | [address] | | | [place] [address] | + + + | Home Phone [...] Team Providers + +------+ + | Care Histotechnologist Supervisor Name | Role | Phone | + +------+ + | Rahul Silva MD | PCP | | + +------+ + Encounter Details +--------+ + + + + | Date | Type | Department | Care Team | Description | +--------+ + + + + | 05/27/ | Orders Only | [facility] | Conversion | | | 2019 | | NEPHROLOGY [place] | Transaction, | | | | | [address] | Provider Unknown | | | | | [address] [place] | | | | | | [address] | (Fax) | | | | | [phone] | | | +--------+ + + + [...] | | | | | [place] [address] | | | | | | [phone] | | | | | | | | +--------+ + + + + | 08/09/ | Virtual | Nephrology | Farrukh Acuna MD | | | 2019 | Office | | [address] [facility] | | | | Visit | | [address] [place], [place] | | | | | | [address] | | | | | | | [...]
--- OUTSIDE RECORDS SUMMARY | ~2020-06-08 | XMS | Encounter Summary ---
Demographics + + + | Address | [address] | | | [place] [address] | + + + | Home Phone [...] Team Providers + +------+ + | Care Basketball Referee Name | Role | Phone | + [...] + + | 08/07/ | Telephone | [facility] | Steven Tobar MD | Post-op Question | | 2016 | | OTOLARYNGOLOGY [address] | [address] | (ear) | | | | [address] | [address] | | | | | [place], [place] | [facility] [place] [address] | | | | | [address] | [phone] | | | | | [phone] | | | +--------+ + + + [...] Miscellaneous Notes Telephone Encounter - Sarah Manzanares, Pressing Department Supervisor - 08/07/2016 3:14 PM PDTCalled a nd [...] dry elephone Breann jackson - Sarah Manzanares, Pressing Department Supervisor - 08/07/2016 11:03 AM PDTPatient daughter calls [...] | | | | | [place] [address] | | | | | | [phone] | | | | | | | | +--------+ + + + + | 08/09/ | Virtual | Nephrology | Farrukh Acuna MD | | | 2019 | Office | | [address] [facility] | | | | Visit | | [address] [facility] [place] | | | | | | [address] | | | | | | | | +--------+ + + + + documented as of this encounter Visit Diagnoses Not on filedocumented in this encounter"
--- OUTSIDE RECORDS SUMMARY | ~2020-06-08 | XMS | Encounter Summary ---
Demographics + + + | Address | [address] | | | [place] [address] | + + + | Home Phone [...] Team Providers + +------+ + | Care Chronic Disease Manager Name | Role | Phone | + +------+ + | Rahul Silva MD | PCP | | + +------+ + Encounter Details +--------+ + + + + | Date | Type | Department | Care Team | Description | +--------+ + + + + | 06/12/ | Orders Only | [facility] | Farrukh Acuna MD | | | 2017 | | NEPHROLOGY [place] | [address] [place] | | | | | [address] | [address] [place], [place] | | | | | [address] [place], [place] | [address] | | | | | [address] | | | | | | [phone] | | | +--------+ + + + [...] | | | | | [place] [address] | | | | | | [phone] | | | | | | | | +--------+ + + + + | 08/09/ | Virtual | Nephrology | Farrukh Acuna MD | | | 2019 | Office | | [address] [facility] | | | | Visit | | [address] [place], [place] | | | | | | [address] | | | | | | | [...]
--- OUTSIDE RECORDS SUMMARY | ~2020-06-08 | XMS | Encounter Summary ---
Demographics + + + | Address | [address] | | | [place] [address] | + + + | Home Phone [...] Team Providers + +------+ + | Care Lease Analyst Name | Role | Phone | [...] [address] | | | | | [place], [place] | [place], [place] | | | | | [address] | [address] | | | | | [phone] | [phone] | | | | | | | [...] | | | | | [place] [address] | | | | | | [phone] | | | | | | | | +--------+ + + + + | 08/09/ | Virtual | Nephrology | Farrukh Acuna MD | | | 2020 | Office | | [address] [facility] [address] | | | | Visit | | [address] [place], [place] | | | | | | [address] | | | | | | | [...]
--- OUTSIDE RECORDS SUMMARY | ~2020-06-08 | XMS | Encounter Summary ---
Demographics + + + | Address | [address] | | | [place] [address] | + + + | Home Phone [...] [place] | | | | | [address] | | + + + + + Care Team Providers + +------+ + | Care Take Away Attendant Name | Role | Phone | [...] | | | | | | [facility], [address] | | | | | | [place], [place] | | | | | | [address] | | | | | | [phone] | | | +--------+ + + + [...] as of this encounter Progress Notes Interface, Construction Administrative Assistant In - 01/06/2007 5:03 AM PST CLINIC DATE: 10/31/97 [facility] - PROCEDURE NOTE PROCEDURE: [...] his left thigh stump. Nelson Melara M.D. It Architecture Analyst, [facility] MANDY/maryjo documented in this encounter Plan of Treatment Not on filedocumented as of this encounter Visit Diagnoses Not on filedocumented in this encounter"
--- OUTSIDE RECORDS SUMMARY | ~2020-06-08 | XMS | Encounter Summary ---
Demographics + + + | Address | [address] | | | [place] [address] | + + + | Home Phone [...] Team Providers + +------+ + | Care Education Assistant Name | Role | Phone | + +------+ + | Mehrdad Bergman | PCP | | + +------+ + Encounter Details +--------+ + + + + | Date | Type | Department | Care Team | Description | +--------+ + + + + | 06/05/ | Orders Only | [facility] | Ami Cole, | CKD (chronic kidney | | 2019 | | NEPHROLOGY [place] | Online Services Manager | disease) stage 5, | | | | [address] | | GFR less than 15 | | | | [address] | | ml/min (HCC) | | | | [place] | | (Primary Dx); Anemia | | | | [address] | | of chronic kidney | | | | [phone] | | failure, stage 5 | | | | | | ([facility]); Persistent | | | | | | [...] as of this encounter Progress Ami Pérez, Online Services Manager - 06/05/2020 2:[address]ette [...] | | | | | [facility] | | | | | | [place] [address] | | | | | | [phone] | | | | | | | | +--------+ + + + + | 08/09/ | Virtual | Nephrology | Farrukh Acuna MD | | | 2019 | Office | | [address] [facility] | | | | Visit | | [facility] | | | | | | [address] | | | | | | | [...] | | than 15 ml/min (HCC) | 06/05/2021 | | | | | Anemia of chronic | | | | | | kidney failure, | | | | | | stage 5 ([facility]) | | | | | | Persistent [...] | | than 15 ml/min (HCC) | 06/05/2021 | | | | | Anemia of chronic | | | | | | kidney failure, | | | | | | stage 5 ([facility]) | | | | | | Persistent [...] ml/min ([facility]) | | | | | | Anemia of chronic | | | | | | kidney failure, | | | | | | stage 5 ([facility]) | | | | | | Persistent [...] ml/min ([facility]) | | | | | | Anemia of chronic | | | | | | kidney failure, | | | | | | stage 5 ([facility]) | | | | | | Persistent [...] ml/min ([facility]) | | | | | | Anemia of chronic | | | | | | kidney failure, | | | | | | stage 5 ([facility]) | | | | | | Persistent [...] ml/min ([facility]) | | | | | | Anemia of chronic | | | | | | kidney failure, | | | | | | stage 5 ([facility]) | | | | | | Persistent [...] ml/min ([facility]) | | | | | | Anemia of chronic | | | | | | kidney failure, | | | | | | stage 5 ([facility]) | | | | | | Persistent [...] ml/min ([facility]) | | | | | | Anemia of chronic | | | | | | kidney failure, | | | | | | stage 5 ([facility]) | | | | | | Persistent [...] than 15 ml/min ([facility]) - Primary Chronic | | kidney disease, Stage V | + + | Anemia of chronic kidney failure, stage 5 ([facility]) | + + | Persistent proteinuria Proteinuria | + + | Essential hypertension Unspecified essential hypertension | + + | Iron deficiency Other disorders of iron metabolism | + + documented in this encounter"
--- OUTSIDE RECORDS SUMMARY | ~2020-06-08 | XMS | Encounter Summary ---
Demographics + + + | Address | [address] | | | [place] [address] | + + + | Home Phone [...] Team Providers + +------+ + | Care Electrical Engineering Designer Name | Role | Phone | + +------+ + | Mehrdad Bergman | PCP | | + +------+ + Encounter Details +--------+ + + + + | Date | Type | Department | Care Team | Description | +--------+ + + + + | 06/05/ | Virtual | 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 I see no need to send him [...] 03/01/19. He was in the ED at [facility] in late 05/2020 with CP & [...] 10/2016 with severe pneumonia, severe ZEKE; needed COUPON MANIFEST CLERK for ~5 weeks b efore renal function recovery mid 12/2016. He was admitted to [facility] for 3 nights in July 2016 [...] 10/2016 with severe pneumonia, severe ZEKE; needed COUPON MANIFEST CLERK for ~5 weeks b efore renal function [...] Also: I see no need for acute COUPON MANIFEST CLERK. I see no need to send him [...] or concerns. Truly yours, Farrukh Acuna MD FAC, [facility] This exam was initially conducted via a secure 256-bit AES encrypted bidirectional video se ssion. You have chosen to receive care through the use of telemedicine. Telemedicine enables [facility] care providers at different locations to [...] | | | | | | [facility] | | | | | | [place] [address] | | | | | | [phone] | | | | | | | | +--------+ + + + + | 08/09/ | Virtual | Nephrology | Farrukh Acuna MD | | | 2019 | Office | | [address] [facility] | | | | Visit | | [address] [place] | | | | | | [address] | | | | | | | [...] ([facility]) | + + | Persistent [...]
--- OUTSIDE RECORDS SUMMARY | ~2020-06-08 | XMS | Encounter Summary ---
Demographics + + + | Address | [address] | | | [place] [address] | + + + | Home Phone [...] Providers + +------+ + | Care Career And Guidance Counselor Name | Role | Phone | [...] + + | 09/10/ | Anesthesia | [facility] | Venkata Carroll | | | 2019 | [facility] | [address] | | | | | OPERATING ROOM [address] | | | | | [address] | [place] [address] | | | | | [place], [place] | [phone] | | | | | [address] | | | | | | [phone] | | | +--------+ + + + + Anesthesia Record + + + + + | Procedure Name | Responsible | Anesthesia Start | Anesthesia Stop Time | | | Anesthesiologist | Time | | + + + + + | INSERTION AV FISTULA | Venkata Carroll, | 09/10/19 1307 | 09/10/19 1401 | | (Right BBF) (Right | APPLICATIONS SUPPORT ANALYST | | | | Arm Upper) | [...] 09/10/19 1600 by | | amor | dinw-pmy-pvxoge catheter system; | Trinidad Ramírez | Leana [...] EVALUATION Kavon Andujar 79 y.o. male 1940 [id number] Procedure(s) INSERTION AV FISTULA (Right BBF) (Right [...] by Venkata Carroll CRNA 09/10/2019 14:10 [facility] Venkata Carroll CRNA at 09/10 2:10 PM PDTAnesthesia Preprocedure Evaluation - Venkata Carroll CRNA - 09/10/2019 12:41 PM PDT ANESTHESIA PREANESTHESIA EVALUATION Kavon Andujar 79 y.o. male 1940 [id number] Procedure(s): INSERTION AV FISTULA (Right BBF) (Right [...] . Electronically Signed by: Venkata Carroll CRNA [facility] date/time: 09/10/2019 12:41 documented in th is encounter Miscellaneous Notes Anesthesia Post-op Handoff - Venkata Carroll CRNA - 09/10/2019 2:08 PM PDTFormatting o f this note might be different from the original. ANESTHESIA HANDOFF NOTE Kavon Andujar 79 y.o. male 1940 [id number] INSERTION AV FISTULA (Right BBF) (Right Arm [...] team. Venkata Carroll CRNA 09/10/2019 14:09 [facility] by Venkata Carroll CRNA [...] [address] | | | | | | [place] [address] | | | | | | [phone] | | | | | | | | +--------+ + + + + | 08/09/ | Virtual | Nephrology | Farrukh Acuna MD | | | 2019 | Office | | [address] [facility] | | | | Visit | | [address] [place], [place] | | | | | | [address] | | | | | | | [...]
--- OUTSIDE RECORDS SUMMARY | ~2020-06-08 | XMS | Encounter Summary ---
Demographics + + + | Address | [address] | | | [place] [address] | + + + | Home Phone [...] [place] | | | | | [address] | | + + + + + Care Team Providers + +------+ + | Care Licensed Electrician Name | Role | Phone | + [...] Clinic | | | | | | [facility], [address] | | | | | | [place], [place] | | | | | | [address] | | | | | | [phone] | | | +--------+ + + + [...] as of this encounter Progress Notes Interface, Knitting Tester In - 01/06/2007 5:03 AM PST CLINIC DATE: 10/31/97 [facility] - PROCEDURE [...] his left thigh stump. Nelson Melara M.D. Taper Machine, An[facility]iology [facility] MANDY/maryjo documented in this encounter Plan of Treatment Not on filedocumented as of this encounter Visit Diagnoses Not on filedocumented in this encounter"
--- OUTSIDE RECORDS SUMMARY | ~2020-06-08 | XMS | Encounter Summary ---
Demographics + + + | Address | [address] | | | [place] [address] | + + + | Home Phone [...] Providers + +------+ + | Care Aircraft Launch And Recovery Technician Name | Role | Phone | + +------+ + | Rahul Silva MD | PCP | | + +------+ + Encounter Details +--------+ + + + + | Date | Type | Department | Care Team | Description | +--------+ + + + + | 11/10/ | Orders Only | [facility] | Conversion | | | 2017 | | NEPHROLOGY [place] | Transaction, | | | | | [address] | Provider Unknown | | | | | [address] [place] | | | | | | [address] | (Fax) | | | | | [phone] | | | +--------+ + + + [...] | | | | | [place] [address] | | | | | | [phone] | | | | | | | | +--------+ + + + + | 08/09/ | Virtual | Nephrology | Farrukh Acuna MD | | | 2019 | Office | | [address] [facility] | | | | Visit | | [address] [place], [place] | | | | | | [address] | | | | | | | [...]
--- OUTSIDE RECORDS SUMMARY | ~2020-06-08 | XMS | Encounter Summary ---
Demographics + + + | Address | [address] | | | [place] [address] | + + + | Home Phone [...] + + + | Author | [facility] | + + + | Organization | [facility] | + + + | Address | Unknown | + + + | Phone | Unavailable | + + + Support + + + + + | Name | Relationship | Address | Phone | + + + + + | Darci Andujar | [address] | [place] | | | | | [address] | | + + + + + Care Team Providers + +------+ + | Care Mine Superintendent Name | Role | Phone | + [...] Clinic | | | | | | [facility], [address] | | | | | | [place], [place] | | | | | | [address] | | | | | | [phone] | | | +--------+ + + + [...] as of this encounter Progress Notes Interface, Systems Tester In - 01/03/2007 5:08 AM PST CLINIC DATE: 12/22/97 Mr. Andujar is referred by Dr. Jerry Smiley in the [facility]. He is currently followed by the Anesthesia Pain Service at [facility], and also recently has been followed by [...] under Dr. Robert Carlson's supervision here at [facility]. His pain continued, exacerbated by a fall [...] procedure at this time. Eric Mcclure M.D. Pattern Chain Maker Supervisor, Department of Orthopaedics and Rehabilitation AY/egl A cc: Jerry Smiley M.D. (with letter) [address] [place] [address] [address] [place] [address] Robert Carlson M.D. FAX: [phone] Alina Moise M.D. FAX: [phone] Anesthesia Pain ClinicFAX: [phone] documented in this encounter Plan of Treatment Not on filedocumented as of this encounter Visit Diagnoses Not on filedocumented in this encounter
--- OUTSIDE RECORDS SUMMARY | ~2020-06-08 | XMS | Encounter Summary ---
Demographics + + + | Address | [address] | | | [place] [address] | + + + | Home Phone [...] Team Providers + +------+ + | Care Garment Form Assembler Name | Role | Phone | [...] + + | 09/01/ | Telephone | [facility] | Farrukh Acuna MD | Other | | 2019 | | NEPRHOLOGY [place] | [address] | | | | | [address] | [address] [place], [place] | | | | | [address] [place], [place] | [address] | | | | | [address] | | | | | | [phone] | | | +--------+ + + + [...] Notes Telephone Encounter - Trinidad Simon Manager Small Business - 09/02/2019 9:46 AM Henrry Acuna if the patients provider would like to discuss lab results they can call his cell p lexie at any time. Called to relay message to krys but was unable to reach her I left thomas dick with information and clinic name and number for her to call back with any questions.Elect ronically signed by Trinidad Simon, Manager Small Business at 09/02/2019 9:48 AM Chandrika e Encounter - Laureen Gill V - 09/01/2019 1:22 PM PDTProvider: Akoum/Surgery Concerns patient and daughter called wanting to ask Armand if he can call him to discuss lab result a nd also concerns of the surgery due to his 2 blood clots on his arms. Surgery is on 09/10/19 . Please call them back at [phone]. Detailed message may be left on phone: Yes Last OV: 07/26/19 Next OV: 10/04/19 If this is a symptom based call and you were unable to immediately transfer the call to critical access hospital staff, was caller made aware that if at any timeshefeels it is an emergency they shoul d call 911 or go to the nearest emergency room? No Is licensed and certified midwife needed: no documented in this enc ounter [...] | | | | | [place] [address] | | | | | | [phone] | | | | | | | | +--------+ + + + + | 08/09/ | Virtual | Nephrology | Farrukh Acuna MD | | | 2019 | Office | | [address] [facility] | | | | Visit | | [address] [place], [place] | | | | | | [address] | | | | | | | | +--------+ + + + + documented as of this encounter Visit Diagnoses Not on filedocumented in this encounter"
--- OUTSIDE RECORDS SUMMARY | ~2020-06-08 | XMS | Encounter Summary ---
Demographics + + + | Address | [address] | | | [place] [address] | + + + | Home Phone [...] Team Providers + +------+ + | Care Artificial Candy Maker Name | Role | Phone | + +------+ + | Rahul Silva MD | PCP | | + +------+ + Encounter Details +--------+ + + + + | Date | Type | Department | Care Team | Description | +--------+ + + + + | 09/07/ | Preadmit | [facility] | Brian Orosco MD | | | 2019 | Visit | CENTER PREADMIT | [address] | | | | | CLINIC [address] | [place], [place] | | | | | [place], [place] | [address] | | | | | [address] | [phone] | | | | | [phone] | | | +--------+ + + + [...] for the 09/07/19 encounter (Preadmit Visit) with [facility] ROOM 4 Medication Sig Instructions [...] LOBBY REGISTRATION. TAKE THE ELEVATOR BY THE [place] TO THE SECOND FLOOR to CH JANNA IN FOR SURGERY. Once elevator door opens you step out to check-in desk and are in the [facility] waiting room. AttachmentsThe following attachments cannot be sent through Care Everywhere.Hemodialysis Ac cess, Creating a (Mongolian)Dialysis, Arteriovenous (AV) Fistula for (Mongolian)documented in th is encounter Plan of Treatment [...] [address] | | | | | | [place] [address] | | | | | | [phone] | | | | | | | | +--------+ + + + + | 08/09/ | Virtual | Nephrology | Farrukh Acuna MD | | | 2019 | Office | | [address] [place] | | | | Visit | | [address] [place] | | | | | | [address] | | | | | | | [...] | | | | | performed at [facility], [address] | | | | | | [facility], | | | | | | [place] [address] | | | | + + + + + + + + | Specimen | + + | Blood | + + + + + + + | Performing | Address | City/State/Zipcode | Phone Number | | Organization | | | | + + + + + | [facility] | [address] | [place] [address] | [phone] | + + + + + CBC [...] | | | Absolute | performed at [facility], [address] | K/uL | LABORATORY | | | | [address], | | | | | | [place] [address] | | | | + + + + + + + + | Specimen | + + | Blood | + + + + + + + | Performing | Address | City/State/Zipcode | Phone Number | | Organization | | | | + + + + + | [facility] | [address] | [place] [address] | [phone] | + + + + + ECG [...]
--- OUTSIDE RECORDS SUMMARY | ~2020-06-08 | XMS | Encounter Summary ---
Demographics + + + | Address | [address] | | | [place] [address] | + + + | Home Phone [...] Providers + +------+ + | Care Wire Dropper Name | Role | Phone | + [...] [address] | | | | | [place], [place] | [place], [place] | | | | | [address] | [address] | | | | | [phone] | [phone] | | | | | | | [...] | | | | | [place] [address] | | | | | | [phone] | | | | | | | | +--------+ + + + + | 08/09/ | Virtual | Nephrology | Farrukh Acuna MD | | | 2020 | Office | | [address] [facility] [address] | | | | Visit | | [address] [place], [place] | | | | | | [address] | | | | | | | [...]
--- OUTSIDE RECORDS SUMMARY | ~2020-06-08 | XMS | Encounter Summary ---
Demographics + + + | Address | [address] | | | [place] [address] | + + + | Home Phone [...] Team Providers + +------+ + | Care Filler In Name | Role | Phone | + +------+ + | Rahul Silva MD | PCP | | + +------+ + Encounter Details +--------+ + + + + | Date | Type | Department | Care Team | Description | +--------+ + + + + | 08/19/ | Orders Only | [facility] | Farrukh Acuna MD | | | 2018 | | NEPHROLOGY [place] | [address] [place] | | | | | [address] [place] | [address] [place], [place] | | | | | [address] [place], [place] | [address] | | | | | [address] | | | | | | [phone] | | | +--------+ + + + [...] | | | | | [place] [address] | | | | | | [phone] | | | | | | | | +--------+ + + + + | 08/09/ | Virtual | Nephrology | Farrukh Acuna MD | | | 2019 | Office | | [address] [facility] | | | | Visit | | [address] [place] | | | | | | [address] | | | | | | | [...] + + + + | Non- | 3.4 (A) | 4.3 - 5.7 [...]
--- OUTSIDE RECORDS SUMMARY | ~2020-06-08 | XMS | Encounter Summary ---
Demographics + + + | Address | [address] | | | [place] [address] | + + + | Home Phone [...] + + | 10/04/ | Office | [facility] | Farrukh Acuna MD | CKD (chronic kidney | | 2019 | Visit | NEPHROLOGY [place] | [address] [place] | disease) stage 5, | | | | [address] | [address] [place], [place] | GFR less than 15 | | | | [address] | [address] | ml/min (HCC) | | | | [place], [place] | | (Primary Dx); Anemia | | | | [address] | | of chronic kidney | | | | [phone] | | failure, stage 5 | | | | | | (HCC); Essential | | | | | | hypertension; Iron | | | | | | deficiency; | | | | | | Secondary | | | | | | hyperparathyroidism | | | | | | ([facility]); 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, with | | | | | | long-term current | | | | | | use of insulin | | | | | | ([facility]); Edema of | | | [...] 10/2016 with severe pneumonia, severe ZEKE; needed AMBULANCE DISPATCHER for ~5 weeks b efore renal function [...] 19.5 (A) 05/27/2019 LABPROT 2,445.6 (A) 03/01/2019 [id number] 30 10/08/2018 Assessment: Mr. Andujar is a 78 y.o. male patient with stage IV CKD on a background of diabetes & hypert ension and recent hospitalization for C-diff and hehydration. The most likely pathology here is that of diabetic nephropathy +/- hypertensive nephrosclerosis/arteriolosclerosis. He was hospitalized in 10/2016 with severe pneumonia, severe ZEKE; needed AMBULANCE DISPATCHER for ~5 weeks b efore renal function [...] Also: I see no need for acute AMBULANCE DISPATCHER. I see no need to send him [...] | | | | | [place] [address] | | | | | | [phone] | | | | | | | | +--------+ + + + + | 08/09/ | Virtual | Nephrology | Farrukh Acuna MD | | | 2019 | Office | | [address] [place] | | | | Visit | | [address] [place] | | | | | | [address] | | | | | | | | +--------+ + + + + documented as of this encounter Visit Diagnoses + + | Diagnosis | + + | CKD (chronic kidney disease) stage 5, GFR less than 15 ml/min ([facility]) - Primary Chronic | | kidney disease, Stage V | + + | Anemia of chronic kidney failure, stage 5 ([facility]) | + + | Essential [...]
--- OUTSIDE RECORDS SUMMARY | ~2020-06-08 | XMS | Encounter Summary ---
Demographics + + + | Address | [address] | | | [place] [address] | + + + | Home Phone [...] Providers + +------+ + | Care Manager Collection Name | Role | Phone | + [...] N Young | | | | | [place], [place] | [place], [place] | | | | | [address] | [address] | | | | | [phone] | [phone] | | | | | | | [...] | | | | | [place] [address] | | | | | | [phone] | | | | | | | | +--------+ + + + + | 08/09/ | Virtual | Nephrology | Farrukh Acuna MD | | | 2020 | Office | | [address] [facility] [place] | | | | Visit | | [address] [place], [place] | | | | | | [address] [...]
--- OUTSIDE RECORDS SUMMARY | ~2020-06-08 | XMS | Encounter Summary ---
Demographics + + + | Address | [address] | | | [place] [address] | + + + | Home Phone [...] [place] | | | | | [address] | | + + + + + Care Team Providers + +------+ + | Care Field Captain Name | Role | Phone | [...] | | | amputation | [place], | [place], [place] | | | | | stump, | [place] [address] | [address] | | | | | unspecified | Phone: | Phone: | | | | | | [phone] | [phone] | | | | | | Fax: | Fax: | | | | | | [phone] | [phone] | +--------+--------+ + + + + Encounter Details +--------+---------+ + + + | Date | Type | Department | Care Team | Description | +--------+---------+ + + + | 04/10/ | Office | [facility] | Seven Reilly MD | Low back pain; | | 2009 | Visit | Pain Center at | [address] | Herniated lumbar | | | | [facility] | [place], [place] | intervertebral disc; | | | | [address] | [address] | Stump pain (HCC) | | | | [facility] | [phone] | | | | | and Healing, | | | | | | Building | | | | | | Floor [place], [place] | | | | | | [address] | | | | | | [phone] | | | +--------+---------+ + + + [...] the trainee's note. Seven Reilly MD, DABA, [facility] P Mariano Pierre MD - 04/10/2010 12:30 PM PDT [facility] Office Visit 04/10/2010 Kavon Andujar; ; : 1940 Mr. Andujar was referred for pain management consultation by RAHUL COYNE MD [address] [place] [address] [address] [place] [address] Reason for visit: Chief Complaint Patient presents [...] pain. He has been referred to the [facility] for consultation regarding this [...] that the most effective treatments include: medications. DESIGN VERIFICATION ENGINEER Brief Pain Inventory: (ten= worst possible pain [...] above. As part of today's visit the [facility] new patient questionnaire [...] you expect from your visits to the [facility] ? Don't know [...] and summary of old medical records (source: AppTrigger), as summarized in the body of the [...] generic medication. Follow up: none scheduled at [facility]. Mariano Martinez MD Pain Fellow [facility] [place] [facility] documented in this encounter Plan of [...]
--- OUTSIDE RECORDS SUMMARY | ~2020-06-08 | XMS | Encounter Summary ---
Demographics + + + | Address | [address] | | | [place] [address] | + + + | Home Phone [...] Team Providers + +------+ + | Care Pattern Maker Programer Name | Role | Phone | + +------+ + PCP | Unavailable | + +------+ + Encounter Details +--------+ + + + + | Date | Type | Department | Care Team | Description | +--------+ + + + + | 12/31/ | [facility] | [facility] | | | | 2000 | Encounter | MED CTR XRAY [address] | | | | | | [address] | | | | | | [place] [address] | | | | | | [phone] | | | +--------+ + + + [...] | | | | | | [address] | | | | | | [place] [address] | | | | | | [phone] | | | | | | | | +--------+ + + + + | 08/09/ | Virtual | Nephrology | Farrukh Acuna MD | | | 2019 | Office | | [address] [facility] | | | | Visit | | [address] [place] | | | | | | [address] | | | | | | | | +--------+ + + + + documented as of this encounter Visit Diagnoses Not on filedocumented in this encounter"
--- OUTSIDE RECORDS SUMMARY | ~2020-06-08 | XMS | Encounter Summary ---
Demographics + + + | Address | [address] | | | [place] [address] | + + + | Home Phone | | + + + | Preferred Language | Unknown | + + + | Marital Status | Single | + + + | Mandaen Affiliation | PRO | + + + [...] [place] | | | | | [address] | | + + + + + Care Team Providers + +------+ + | Care Fisher Trap Name | Role | Phone | + [...] | | | | | | [facility], [address] | | | | | | [place], [place] | | | | | | [address] | | | | | | [phone] | | | +--------+ + + + [...] as of this encounter Progress Notes Interface, Revenue Stamper In - 01/03/2007 5:08 AM PST CLINIC DATE: 12/22/97 Mr. Andujar is referred by Dr. Jerry Smiley in the [facility]. He is currently followed by the Anesthesia Pain Service at [facility], and also recently has been followed [...] under Dr. Robert Carlson's supervision here at [facility]. His pain continued, exacerbated by a [...] procedure at this time. Eric Mcclure M.D. Digital Circuit Designer, Department of Orthopaedics and Rehabilitation AY/egl A cc: Jerry Smiley M.D. (with letter) [address] [place] [address] [address] [place] [address] Robert Carlson M.D. FAX: [phone] Alina Moise M.D. FAX: [phone] [facility] ClinicFAX: [phone] documented in this encounter Plan of Treatment Not on filedocumented as of this encounter Visit Diagnoses Not on filedocumented in this encounter
--- OUTSIDE RECORDS SUMMARY | ~2020-06-08 | XMS | Encounter Summary ---
Demographics + + + | Address | [address] | | | [place] [address] | + + + | Home Phone [...] [address] Young | | | | | [place], [place] | [place], [place] | | | | | [address] | [address] | | | | | [phone] | | | | | | | [...] | | | | | [place] [address] | | | | | | [phone] | | | | | | | | +--------+ + + + + | 08/09/ | Virtual | Nephrology | Farrukh Acuna MD | | | 2020 | Office | | [address] [facility] [place] | | | | Visit | | [address] [place], [place] | | | | | | [address] | | | | | | | [...]
--- OUTSIDE RECORDS SUMMARY | ~2020-06-08 | XMS | Encounter Summary ---
Demographics + + + | Address | [address] | | | [place] [address] | + + + | Home Phone [...] Team Providers + +------+ + | Care Equipment Hire Manager Name | Role | Phone | [...] N Young | | | | | [place], [place] | [place], [place] | | | | | [address] | [address] | | | | | [phone] | [phone] | | | | | | | [...] | | | | | [place] [address] | | | | | | [phone] | | | | | | | | +--------+ + + + + | 08/09/ | Virtual | Nephrology | Farrukh Acuna MD | | | 2020 | Office | | [address] [facility] [place] | | | | Visit | | [address] [place], [place] | | | | | | [address] | | | | | | | [...]
--- OUTSIDE RECORDS SUMMARY | ~2020-06-08 | XMS | Encounter Summary ---
Demographics + + + | Address | [address] | | | [place] [address] | + + + | Home Phone [...] [place] | | | | | [address] | | + + + + + Care Team Providers + +------+ + | Care Tire Room Supervisor Name | Role | Phone | [...] | | [address] | [place]pez [place], | | | | | [place] | [place] [address] | | | | | [place] | [phone] | | | | | [address] | | | | | | [phone] | | | +--------+ + + + [...] | | | | | | a Union-Lupe catheter | | | | | | [...] | | | | placement of a Union-Lupe | | | | | | catheter. CHEST, | | | | | | SINGLE AP PORTABLE: | | | | | | 03-31-93 AT 1000 HOURS | | | | | | FINDINGS: Since the | | | | | | prior study, the | | | | | | Union-Lupe catheter has | | | | | [...] IMPRESSION: | | | | | | Union-Lupe catheter | | | | | | [...] The | | | | | | Union-Lupe catheter | | | | | | [...] and | | | | | | Union-Lupe catheter | | | | | | [...] endotracheal | | | | | | tube,Union-Lupe catheter | | | | | | [...] | | + +---------+ + + | [facility] DEPARTMENT OF | | | | [...] | + + + + + | [facility] | [address] | [place] [address] | | | PATHOLOGY | [address] | | | + + + + + documented in this encounter Visit Diagnoses Not on filedocumented in this encounter"
--- OUTSIDE RECORDS SUMMARY | ~2020-06-08 | XMS | Encounter Summary ---
Demographics + + + | Address | [address] | | | [place] [address] | + + + | Home Phone [...] Team Providers + +------+ + | Care Aerospace Medicine Physician Name | Role | Phone | + +------+ + | Rahul Silva MD | PCP | | + +------+ + Encounter Details +--------+ + + + + | Date | Type | Department | Care Team | Description | +--------+ + + + + | 01/13/ | Orders Only | [facility] | Conversion | | | 2016 | | NEPHROLOGY [place] | Transaction, | | | | | [address] [place] | Provider Unknown | | | | | [address] [place] | | | | | | [address] | (Fax) | | | | | [phone] | | | +--------+ + + + [...] | | | | | [place] [address] | | | | | | [phone] | | | | | | | | +--------+ + + + + | 08/09/ | Virtual | Nephrology | Farrukh Acuna MD | | | 2019 | Office | | [address] [facility] | | | | Visit | | [address] [place], [place] | | | | | | [address] | | | | | | | [...] - 1.030 | EXTERNAL | | | [place], | | | LAB | | | [...]
--- OUTSIDE RECORDS SUMMARY | ~2020-06-08 | XMS | Encounter Summary ---
Demographics + + + | Address | [address] | | | [place] [address] | + + + | Home Phone [...] Providers + +------+ + | Care Animal Care Worker Name | Role | Phone | + +------+ + | Rahul Silva MD | PCP | | + +------+ + Encounter Details +--------+ + + + + | Date | Type | Department | Care Team | Description | +--------+ + + + + | 07/26/ | Orders Only | [facility] | Farrukh Acuna MD | Chronic kidney | | 2019 | | NEPRHOLOGY [place] | [address] | disease, stage IV | | | | [address] | [address] [place], [place] | (severe) (HCC); | | | | [address] [place], [place] | [address] | Persistent | | | | [address] | | proteinuria; | | | | [phone] | | Secondary | | | | [...] [place] | | | | | | [place] [address] | | | | | | [phone] | | | | | | | | +--------+ + + + + | 08/09/ | Virtual | Nephrology | Farrukh Acuna MD | | | 2019 | Office | | [address] [place] | | | | Visit | | [address] [place] | | | | | | [address] | | | | | | | [...]
--- OUTSIDE RECORDS SUMMARY | ~2020-06-08 | XMS | Encounter Summary ---
Demographics + + + | Address | [address] | | | [place] [address] | + + + | Home Phone [...] [place] | | | | | [address] | | + + + + + Care Team Providers + +------+ + | Care Replenishment Analyst Name | Role | Phone | + +------+ + PCP | Unavailable | + +------+ + Encounter Details +--------+ + + + + | Date | Type | Department | Care Team | Description | +--------+ + + + + | 02/26/ | Results | | Other, Faculty | | | 1993 | Only | | [phone] | | +--------+ + + + + [...] | | + +---------+ + + | [facility] DEPARTMENT OF | | | | | RADIOLOGY | | | | + +---------+ + + documented in this encounter Visit Diagnoses Not on filedocumented in this encounter"
--- OUTSIDE RECORDS SUMMARY | ~2020-06-08 | XMS | Encounter Summary ---
Demographics + + + | Address | [address] | | | [place] [address] | + + + | Home Phone [...] Team Providers + +------+ + | Care Cath Lab Radiological Technologist Name | Role | Phone | [...] [address] Young | | | | | [place], [place] | [place], [place] | | | | | [address] | [address] | | | | | [phone] | [phone] | | | | | | | [...] | | | | | [place] [address] | | | | | | [phone] | | | | | | | | +--------+ + + + + | 08/09/ | Virtual | Nephrology | Farrukh Acuna MD | | | 2020 | Office | | [address] [facility] [place] | | | | Visit | | [address] [place], [place] | | | | | | [address] | | | | | | | [...]
--- OUTSIDE RECORDS SUMMARY | ~2020-06-08 | XMS | Encounter Summary ---
Demographics + + + | Address | [address] | | | [place] [address] | + + + | Home Phone [...] Providers + +------+ + | Care Manager Animal Name | Role | Phone | + [...] | | | [address] | [place] [address] | | | | | [place] [address] | | | | | | [phone] | | | +--------+ + + + [...] | | | | | | [facility] | | | | | | [place] [address] | | | | | | [phone] | | | | | | | | +--------+ + + + + | 08/09/ | Virtual | Nephrology | Farrukh Acuna MD | | | 2019 | Office | | [address] [address] [facility] | | | | Visit | | [address] [place], [place] | | | | | | [address] | | | | | | | [...]
--- OUTSIDE RECORDS SUMMARY | ~2020-06-08 | XMS | Encounter Summary ---
Demographics + + + | Address | [address] | | | [place] [address] | + + + | Home Phone [...] + +------+ + | Care Motion Picture Photographer Name | Role | Phone | [...] [address] Young | | | | | [place], [place] | [place], [place] | | | | | [address] | [address] | | | | | [phone] | [phone] | | | | | | | [...] | | | | | [place] [address] | | | | | | [phone] | | | | | | | | +--------+ + + + + | 08/09/ | Virtual | Nephrology | Farrukh Acuna MD | | | 2020 | Office | | [address] [facility] [place] | | | | Visit | | [address] [place], [place] | | | | | | [address] | | | | | | | [...]
--- OUTSIDE RECORDS SUMMARY | ~2020-06-08 | XMS | Encounter Summary ---
Demographics + + + | Address | [address] | | | [place] [address] | + + + | Home Phone [...] Providers + +------+ + | Care It Quality Assurance Analyst Name | Role | Phone | + +------+ + | Rahul Silva MD | PCP | | + +------+ + Encounter Details +--------+ + + + + | Date | Type | Department | Care Team | Description | +--------+ + + + + | 03/13/ | Orders Only | [facility] | Conversion | | | 2016 | | NEPHROLOGY [place] | Transaction, | | | | | [address] | Provider Unknown | | | | | [address] [place] [address] | | | | | | [address] | (Fax) | | | | | [phone] | | | +--------+ + + + [...] | | | | | [place] [address] | | | | | | [phone] | | | | | | | | +--------+ + + + + | 08/09/ | Virtual | Nephrology | Farrukh Acuna MD | | | 2019 | Office | | [address] [facility] | | | | Visit | | [address] [place], [place] | | | | | | [address] | | | | | | | [...] - 1.030 | EXTERNAL | | | [place], | | | LAB | | | [...] | | | LAB | | | [place] | | | | | + + [...]
--- OUTSIDE RECORDS SUMMARY | ~2020-06-08 | XMS | Encounter Summary ---
Demographics + + + | Address | [address] | | | [place] [address] | + + + | Home Phone [...] + +------+ + | Care Radio Frequency Engineer Name | Role | Phone | + +------+ + | Rahul Silva MD | PCP | | + +------+ + Encounter Details +--------+ + + + + | Date | Type | Department | Care Team | Description | +--------+ + + + + | 01/23/ | Orders Only | [facility] | Collin Mirza, | | | 2015 | | NEPHROLOGY [place] | [address] | | | | | [address] [place] | [address] | | | | | [address] [place], [place] | [place] | | | | | [address] | [address] | | | | | [phone] | | | | | | | [...] | | | | [address] [facility] | | | | | | [place] [address] | | | | | | [phone] | | | | | | | | +--------+ + + + + | 08/09/ | Virtual | Nephrology | Farrukh Acuna MD | | | 2019 | Office | | [address] [facility] | | | | Visit | | [address] [place], [place] | | | | | | [address] | | | | | | | [...] | | | LAB | | | [place] | | | | | + + [...]
--- OUTSIDE RECORDS SUMMARY | ~2020-06-08 | XMS | Encounter Summary ---
Demographics + + + | Address | [address] | | | [place] [address] | + + + | Home Phone [...] Team Providers + +------+ + | Care Investments Manager Name | Role | Phone | [...] + + | 12/21/ | Documentati | [facility] | Alfred, | Other (Ramone live | | 2020 | on | NEPHROLOGY [place] | Charlie Abdi | order sent | | | | [address] | Cash Person | confirmation | | | | [address] [place], [place] | | received.) | | | | [address] | | | | | | [phone] | | | +--------+ + + + [...] | | | | [facility] [address] [facility] | | | | | | [place] [address] | | | | | | [phone] | | | | | | | | +--------+ + + + + | 08/09/ | Virtual | Nephrology | Farrukh Acuna MD | | | 2019 | Office | | [address] [facility] | | | | Visit | | [address] [place] | | | | | | [address] | | | | | | | | +--------+ + + + + documented as of this encounter Visit Diagnoses Not on filedocumented in this encounter"
--- OUTSIDE RECORDS SUMMARY | ~2020-06-08 | XMS | Encounter Summary ---
Demographics + + + | Address | [address] | | | [place] [address] | + + + | Home Phone [...] Providers + +------+ + | Care Vegetable Specker Name | Role | Phone | + [...] + + | 11/08/ | Documentati | [facility] | Simon, | Results (10/10/19) | | 2019 | on | NEPHROLOGY [place] | [facility] | | | | | [address] | [place] | | | | | [address] | | | | | | [place] | | | | | | [address] | | | | | | [phone] | | | +--------+ + + + [...] | | | | | [place] [address] | | | | | | [phone] | | | | | | | | +--------+ + + + + | 08/09/ | Virtual | Nephrology | Farrukh Acuna MD | | | 2019 | Office | | [address] [place] | | | | Visit | | [address] [facility] [place] | | | | | | [address] | | | | | | | [...]
--- OUTSIDE RECORDS SUMMARY | ~2020-06-08 | XMS | Encounter Summary ---
Demographics + + + | Address | [address] | | | [place] [address] | + + + | Home Phone [...] Providers + +------+ + | Care Personal Secretary Name | Role | Phone | + +------+ + | Mehrdad Bergman | PCP | | + +------+ + Reason for Visit +--------+--------+ + | Reason | Onset | Comments | | | Date | | +--------+--------+ + | Other | 05/18/ | ER report reviewed from [facility] DOS 05/16/20/No | | | 2020 | changes | +--------+--------+ + Encounter Details +--------+ + + + + | Date | Type | Department | Care Team | Description | +--------+ + + + + | 05/18/ | Telephone | [facility] | Marilia Sandy | Other (ER report | | 2020 | | NEPRHOLOGY [place] | Michelle, RN | reviewed from | | | | [address] | | Sheila GILLIS | | | | [address] [place], [place] | | 05/16/20/No changes) | | | | [address] | | | | | | [phone] | | | +--------+ + + + [...] Telephone Encounter - Sandy Capellan RN - 05/18/2020 6:23 PM PDTDr Acuna reviewed ER report from [facility] from DOS 05/16/2020. Per Dr Acuna, no changes at this time. Returned call to Kavon and relayed this message to him. No further questions at this time.Carlos Albertoi fatemeh signed by Sandy Capellan, BAN at 05/18/2020 6:24 PM PDTTelephone Encounter - Sandy Phillips RN - 05/18/2020 6:22 PM PDT----- Message from Lee Ann Mcnulty sent at 020 3:44 PM PDT ----- Regarding: Manuelmichelle- standing orders Provider: Armand patient and daughter called to let us know that he has been in and out of [facility] pt and has had lot of labs drawn. He is do for his 2 Week BMP and CBC. Can you please contact [facility] to get these 2 test result for Armand to review Please call them back at [phone]. Detailed message may be left on phone: Yes Last OV: 03/27/2020 Next OV: 06/05/2020 If this is a symptom based call and you were unable to immediately [facility], was caller made aware that if at any timehefeels it is an emergency they should call 911 or go to the nearest emergency room? N/A Is biodiesel production associate needed: no documented in this encounter Plan of Treatment +--------+ + + + + | Date | Type | Specialty | Care Team | Description | +--------+ + + + + | 06/19/ | Office | Pulmonology | Alina Frias | | | 2019 | Visit | | MD Daniel [address] | | | | | | [facility] | | | | | | [place] [address] | | | | | | [phone] | | | | | | | | +--------+ + + + + | 08/09/ | Virtual | Nephrology | Farrukh Acuna MD | | | 2019 | Office | | [address] [facility] | | | | Visit | | [address] [place] | | | | | | [address] | | | | | | | | +--------+ + + + + documented as of this encounter Visit Diagnoses Not on filedocumented in this encounter"
--- OUTSIDE RECORDS SUMMARY | ~2020-06-08 | XMS | Encounter Summary ---
Demographics + + + | Address | [address] | | | [place] [address] | + + + | Home Phone [...] Providers + +------+ + | Care Cover Seamer Name | Role | Phone | [...] | | | MARIA VICTORIA BECERRIL | [place] [address] | | | | | [place] [address] | | | | | | [phone] | | | +--------+ + + + [...] | | | | | [place] [address] | | | | | | [phone] | | | | | | | | +--------+ + + + + | 08/09/ | Virtual | Nephrology | Farrukh Acuna MD | | 2019 | Office | | [address] [facility] | | | | Visit | | [address] | | | | | | [address] | | | | | | | [...]
--- OUTSIDE RECORDS SUMMARY | ~2020-06-08 | XMS | Encounter Summary ---
Demographics + + + | Address | [address] | | | [place] [address] | + + + | Home Phone [...] Providers + +------+ + | Care Fisher Trawl Net Name | Role | Phone | + +------+ + | Mehrdad Bergman | PCP | | + +------+ + Encounter Details +--------+ + + + + | Date | Type | Department | Care Team | Description | +--------+ + + + + | 03/16/ | Orders Only | [facility] | Trisha Conner DNP | | | 2020 | | VASCULAR SURGERY | [address] | | | | | [address] | [address] | | | | | [place], [place] | [address] | | | | | [address] | | | | | | [phone] | | | +--------+ + + + [...] He does not want to come to [facility] until the pandemic is over . [...] | | | [facility] VICTORIA [facility]O [facility] | | | | | | [place] [address] | | | | | | [phone] | | | | | | | | +--------+ + + + + | 08/09/ | Virtual | Nephrology | Farrukh Acuna MD | | | 2019 | Office | | [address] [facility] | | | | Visit | | [address] [place] [address] | | | | | | [address] | | | | | | | | +--------+ + + + + documented as of this encounter Visit Diagnoses Not on filedocumented in this encounter"
--- OUTSIDE RECORDS SUMMARY | ~2020-06-08 | XMS | Encounter Summary ---
Demographics + + + | Address | [address] | | | [place] [address] | + + + | Home Phone [...] Team Providers + +------+ + | Care Interpretive Naturalist Name | Role | Phone | + [...] | | | MARIA VICTORIA BECERRIL | [place] [address] | | | | | [place] [address] | | | | | | [phone] | | | +--------+ + + + [...] | | | | | [place] [address] | | | | | | [phone] | | | | | | | | +--------+ + + + + | 08/09/ | Virtual | Nephrology | Farrukh Acuna MD | | | 2019 | Office | | [address] [facility] | | | | Visit | | [address] [place], [place] | | | | | | [address] | | | | | | | [...]
--- OUTSIDE RECORDS SUMMARY | ~2020-06-08 | XMS | Encounter Summary ---
Demographics + + + | Address | [address] | | | [place] [address] | + + + | Home Phone [...] Providers + +------+ + | Care Water Softener Servicer Name | Role | Phone | + +------+ + | Rahul Silva MD | PCP | | + +------+ + Encounter Details +--------+ + + + + | Date | Type | Department | Care Team | Description | +--------+ + + + + | 05/27/ | Orders Only | [facility] | Farrukh Acuna MD | | | 2019 | | NEPHROLOGY [place] | [address] [place] | | | | | [address] [place] | [address] [place], [place] | | | | | [address] [place], [place] | [address] | | | | | [address] | | | | | | [phone] | | | +--------+ + + + [...] | | | | | [place] [address] | | | | | | [phone] | | | | | | | | +--------+ + + + + | 08/09/ | Virtual | Nephrology | Farrukh Acuna MD | | | 2019 | Office | | [address] [facility] | | | | Visit | | [address] [place], [place] | | | | | | [address] | | | | | | | [...]
--- OUTSIDE RECORDS SUMMARY | ~2020-06-08 | XMS | Encounter Summary ---
Demographics + + + | Address | [address] | | | [place] [address] | + + + | Home Phone [...] [place] | | | | | [address] | | + + + + + Care Team Providers + +------+ + | Care Dry Folder Cloth Name | Role | Phone | + [...] [address] | | | | | | [place], [place] | | | | | | [address] | | | | | | [phone] | | | +--------+ + + + [...]
--- OUTSIDE RECORDS SUMMARY | ~2020-06-08 | XMS | Encounter Summary ---
Demographics + + + | Address | [address] | | | [place] [address] | + + + | Home Phone [...] Providers + +------+ + | Care Director Global Strategic Publisher Sales Name | Role | Phone | + +------+ + | Rahul Silva MD | PCP | | + +------+ + Encounter Details +--------+ + + + + | Date | Type | Department | Care Team | Description | +--------+ + + + + | 05/22/ | Orders Only | [facility] | Farrukh Acuna MD | | | 2018 | | NEPHROLOGY [place] | [address] [place] | | | | | [address] [place] | [address] [place], [place] | | | | | [address] [place], [place] | [address] | | | | | [address] | | | | | | [phone] | | | +--------+ + + + [...] | | | | | [place] [address] | | | | | | [phone] | | | | | | | | +--------+ + + + + | 08/09/ | Virtual | Nephrology | Farrukh Acuna MD | | | 2019 | Office | | [address] [facility] | | | | Visit | | [address] [place], [place] | | | | | | [address] | | | | | | | [...]
--- OUTSIDE RECORDS SUMMARY | ~2020-06-08 | XMS | Encounter Summary ---
Demographics + + + | Address | [address] | | | [place] [address] | + + + | Home Phone [...] Team Providers + +------+ + | Care Rollway Man Name | Role | Phone | + +------+ + | Rahul Silva MD | PCP | | + +------+ + Encounter Details +--------+ + + + + | Date | Type | Department | Care Team | Description | +--------+ + + + + | 08/13/ | Orders Only | [facility] | Conversion | | | 2016 | | NEPHROLOGY [place] | Transaction, | | | | | [address] | Provider Unknown | | | | | [address] [place] | | | | | | [address] | (Fax) | | | | | [phone] | | | +--------+ + + + [...] | | | | | [place] [address] | | | | | | [phone] | | | | | | | | +--------+ + + + + | 08/09/ | Virtual | Nephrology | Farrukh Acuna MD | | | 2019 | Office | | [address] [facility] | | | | Visit | | [address] [place], [place] | | | | | | [address] | | | | | | | [...]
--- OUTSIDE RECORDS SUMMARY | ~2020-06-08 | XMS | Encounter Summary ---
Demographics + + + | Address | [address] | | | [place] [address] | + + + | Home Phone [...] [place] | | | | | [address] | | + + + + + Care Team Providers + +------+ + | Care Training Manager Name | Role | Phone | [...] Vyas | | | | | | [facility], [address] [place] [address] | | | | | | [place], [place] | | | | | | [address] | | | | | | [phone] | | | +--------+ + + + [...] as of this encounter Discharge Summaries Interface, Strong Nitric Operator In - 02/05/2007 1:03 AM PST [address] [address] [facility] MEDICAL SUMMARY OF HOSPITALIZATION Med Rec No.: [id number] Admission Date: 12/28/96 Name: Kavon Andujar Discharge Date: 01/03/97 STAFF PHYSICIAN: Robert Carlson M.D. Professor, Vascular Surgery PRINCIPAL FINAL DIAGNOSIS: Osteophyte of left pmhxz-kdw-vmgo amputation stump. ADDITIONAL DIAGNOSES: Phantom pain. PRINCIPAL PROCEDURE: Revision of left csbkx-uec-iymd amputation stump and excision of left stump osteophyte. 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 Since then he has had pain in the stump. On a computed tomography (CT) scan, it was noted that he had a large bone spur and a cyst in his stump site. HOSPITAL COURSE: The patient was admitted on December 28 and underwent revision of his left jshpo-xhf-cspy amputation stump with excision of his left [...] Normal. 3. DIET: Normal. Nick Noriega M.D. Conference And Event Organiser, General Surgery Robert Carlson M.D. Professor, Vascular Surgery DOMINIC/jc A cc: RUBIA KNAPP MD [address] [facility] [address] documented in this encounter Plan of Treatment Not on filedocumented as of this encounter Visit Diagnoses Not on filedocumented in this encounter"
--- OUTSIDE RECORDS SUMMARY | ~2020-06-08 | XMS | Encounter Summary ---
Demographics + + + | Address | [address] | | | [place] [address] | + + + | Home Phone [...] Team Providers + +------+ + | Care Spectrographic Analyst Name | Role | Phone | + +------+ + | Rahul Silva MD | PCP | | + +------+ + Encounter Details +--------+ + + + + | Date | Type | Department | Care Team | Description | +--------+ + + + + | 07/06/ | Orders Only | [facility] | Farrukh Acuna MD | | | 2018 | | NEPRHOLOGY [place] | [address] | | | | | [address] | [address] [place], [place] | | | | | [address] [place], [place] | [address] | | | | | [address] | | | | | | [phone] | | | +--------+ + + + [...] | | | | | [place] [address] | | | | | | [phone] | | | | | | | | +--------+ + + + + | 08/09/ | Virtual | Nephrology | Farrukh Acuna MD | | | 2019 | Office | | [address] [facility] | | | | Visit | | [address] [place], [place] | | | | | | [address] | | | | | | | [...]
--- OUTSIDE RECORDS SUMMARY | ~2020-06-08 | XMS | Encounter Summary ---
Demographics + + + | Address | [address] | | | [place] [address] | + + + | Home Phone [...] [place] | | | | | [address] | | + + + + + Care Team Providers + +------+ + | Care Teacher Adventure Education Name | Role | Phone | [...] Note | | 2000 | Visit-Trans | [address] [facility] | [phone] | | | | [address] | [address] | | | | | | [place], [place] | | | | | | [address] | | | +--------+ + + + [...] recommend that he see one of our real estate management specialist for further evaluation, and he did appear interested in doing that. 2. Referral to Dr. Willis in Orthopedics. Yuriy Huang M.D. ski lift mechanic HOSEAL / [id number] / [id number] / [id number] / [id number] C: 01/23/2001 nw documented in this encounter Plan of Treatment Not on filedocumented as of this encounter Visit Diagnoses Not on filedocumented in this encounter"
--- OUTSIDE RECORDS SUMMARY | ~2020-06-08 | XMS | Encounter Summary ---
Demographics + + + | Address | [address] | | | [place] [address] | + + + | Home Phone [...] Team Providers + +------+ + | Care Fiction And Nonfiction Writer Prose Name | Role | Phone | + [...] | | | MARIA VICTORIA BECERRIL | [place] [address] | | | | | [place] [address] | | | | | | [phone] | | | +--------+ + + + [...] | | | | | [place] [address] | | | | | | [phone] | | | | | | | | +--------+ + + + + | 08/09/ | Virtual | Nephrology | Farrukh Acuna MD | | | 2019 | Office | | [address] [facility] | | | | Visit | | [address] [place], [place] | | | | | | [address] | | | | | | | [...]
--- OUTSIDE RECORDS SUMMARY | ~2020-06-08 | XMS | Encounter Summary ---
Demographics + + + | Address | [address] | | | [place] [address] | + + + | Home Phone [...] Team Providers + +------+ + | Care Tour Manager Name | Role | Phone | + +------+ + | Rahul Silva MD | PCP | | + +------+ + Encounter Details +--------+ + + + + | Date | Type | Department | Care Team | Description | +--------+ + + + + | 03/01/ | Orders Only | [facility] | Conversion | | | 2019 | | NEPHROLOGY [place] | Transaction, | | | | | [address] | Provider Unknown | | | | | [address] [place] | | | | | | [address] | (Fax) | | | | | [phone] | | | +--------+ + + + [...] | | | | | [place] [address] | | | | | | [phone] | | | | | | | | +--------+ + + + + | 08/09/ | Virtual | Nephrology | Farrukh Acuna MD | | | 2019 | Office | | [address] [facility] | | | | Visit | | [address] [place], [place] | | | | | | [address] | | | | | | | [...] - 1.030 | EXTERNAL | | | [place], | | | LAB | | | [...]
--- OUTSIDE RECORDS SUMMARY | ~2020-06-08 | XMS | Encounter Summary ---
Demographics + + + | Address | [address] | | | [place] [address] | + + + | Home Phone [...] [place] | | | | | [address] | | + + + + + Care Team Providers + +------+ + | Care Marketing Analytics Manager Name | Role | Phone | + +------+ + PCP | Unavailable | + +------+ + Encounter Details +--------+ + + + + | Date | Type | Department | Care Team | Description | +--------+ + + + + | 12/28/ | Procedure - | [facility] | Record, Operation | Operative Report | | 1996 | | Center at [facility] | | | | | Transcribed | [facility] | | | | | | for Health and | | | | | | Healing, [address] | | | | | | [place], [place] | | | | | | [address] | | | | | | [phone] | | | +--------+ + + + [...] | + + | 12/28/1996 12:00 AM [facility] | | [facility] | | [address] [place], [place] [address] | | [facility] | | | | OPERATION RECORD | | | | Med Rec No.: [id number] Date: 12/28/96 | | | | Name: Kavon Andujar | | | | | | ATTENDING SURGEON: Robert Carlson M.D. | | Professor, | | Vascular Surgery | | | | GREENKEEPER(S): Nick Noriega M.D. | | Treasury Management Sales Consultant, General Surgery | | | | POSTOPERATIVE DIAGNOSIS(ES): Left stump osteophyte. | | | | OPERATION(S) PERFORMED: Revision of left tzfgh-bhh-qldg amputation | | and excision of stump osteophyte. | | | | SPECIMEN(S) REMOVED: 1. Swab of pseudocapsule for culture. | | 2. Osteophyte to Pathology. | | | | ANESTHESIA: General endotracheal anesthesia. 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 He has developed pain over the stump. A recent CT scan showed | | an osteophyte growing on the end of the stump. | | | | PROCEDURE: The patient was taken to the Operating Room. | | General endotracheal anesthesia was | | performed by Anesthesia. The | | left lozqb-vya-znyn amputation stump was sterilely prepped and draped [...] | | Nick Noriega M.D. | | Treasury Management Sales Consultant, General Surgery | | Robert Carlson M.D. | | Professor, | | Vascular Surgery | | | | DOMINIC/jc | | | | A | | | | cc: | | | + + documented in this encounter Visit Diagnoses Not on filedocumented in this encounter"
--- OUTSIDE RECORDS SUMMARY | ~2020-06-08 | XMS | Encounter Summary ---
Demographics + + + | Address | [address] | | | [place] [address] | + + + | Home Phone [...] Team Providers + +------+ + | Care Co Pilot Name | Role | Phone | [...] | | | MARIA VICTORIA BECERRIL | [place] [address] | | | | | [place] [address] | | | | | | [phone] | | | +--------+ + + + [...] | | | | | | [facility] | | | | | | [place] [address] | | | | | | [phone] | | | | | | | | +--------+ + + + + | 08/09/ | Virtual | Nephrology | Farrukh Acuna MD | | | 2019 | Office | | [address] [facility] | | | | Visit | | [address] [place], [place] | | | | | | [address] | | | | | | | [...]
--- OUTSIDE RECORDS SUMMARY | ~2020-06-08 | XMS | Encounter Summary ---
Demographics + + + | Address | [address] | | | [place] [address] | + + + | Home Phone [...] Team Providers + +------+ + | Care Rotary Planer Set Up Operator Name | Role | [...] + + | 01/10/ | Documentati | [facility] | Simon, | Results (01/07/20) | | 2020 | on | NEPHROLOGY [place] | [facility] | | | | | [address] | Rfid Engineer | | | | | [address] [place], [place] | | | | | | [address] | | | | | | [phone] | | | +--------+ + + + [...] | | | | | [address] [facility] | | | | | | [place] [address] | | | | | | [phone] | | | | | | | | +--------+ + + + + | 08/09/ | Virtual | Nephrology | Farrukh Acuna MD | | | 2019 | Office | | [address] [place] | | | | Visit | | [address] [place] | | | | | | [address] | | | | | | | | +--------+ + + + + documented as of this encounter Procedures + +--------+ + + + | Procedure Name | Priori | Date/Time | Associated Diagnosis | Comments | | | ty | | | | + +--------+ + + + | EXTERNAL LAB: PTH, | Routin | 01/07/2020 | | Results [...]
--- OUTSIDE RECORDS SUMMARY | ~2020-06-08 | XMS | Encounter Summary ---
Demographics + + + | Address | [address] | | | [place] [address] | + + + | Home Phone [...] Providers + +------+ + | Care Senior Core Java Developer Name | Role | Phone | + +------+ + | Rahul Silva MD | PCP | | + +------+ + Encounter Details +--------+ + + + + | Date | Type | Department | Care Team | Description | +--------+ + + + + | 10/05/ | Orders Only | [facility] | Farrukh Acuna MD | Essential | | 2019 | | NEPHROLOGY [place] | [address] [place] | hypertension | | | | [address] | [address] [place], [place] | (Primary Dx); Iron | | | | [address] | [address] | deficiency; Anemia | | | | [place], [place] | | of chronic kidney | | | | [address] | | failure, stage 5 | | | | [phone] | | (HCC) | +--------+ + + [...] Miscellaneous Notes Addendum Note - Kanwal Sampson Technical Specialist Cytogenetics - 10/05/2019 6:24 PM PST Addended b [...] | | | | | [facility] | | | | | | [place] [address] | | | | | | [phone] | | | | | | | | +--------+ + + + + | 08/09/ | Virtual | Nephrology | Farrukh Acuna MD | | | 2019 | Office | | [address] [facility] | | | | Visit | | [address] [place] | | | | | | [address] | | | | | | | [...]
--- OUTSIDE RECORDS SUMMARY | ~2020-06-08 | XMS | Encounter Summary ---
Demographics + + + | Address | [address] | | | [place] [address] | + + + | Home Phone [...] Team Providers + +------+ + | Care Instructor Modeling Name | Role | Phone | + +------+ + | Rahul Silva MD | PCP | | + +------+ + Encounter Details +--------+ + + + + | Date | Type | Department | Care Team | Description | +--------+ + + + + | 08/31/ | Orders Only | [facility] | Farrukh Acuna MD | | | 2013 | | NEPHROLOGY [place] | [address] [place] | | | | | [address] [place] | [address] [place], [place] | | | | | [address] [place], [place] | [address] | | | | | [address] | | | | | | [phone] | | | +--------+ + + + [...] | | | | MARIA VICTORIA [facility] [facility] | | | | | | [place] [address] | | | | | | [phone] | | | | | | | | +--------+ + + + + | 08/09/ | Virtual | Nephrology | Farrukh Acuna MD | | | 2019 | Office | | [address] [facility] | | | | Visit | | [facility] | | | | | | [address] | | | | | | | [...] | | | LAB | | | [place] | | | | | + + [...]
--- OUTSIDE RECORDS SUMMARY | ~2020-06-08 | XMS | Encounter Summary ---
Demographics + + + | Address | [address] | | | [place] [address] | + + + | Home Phone [...] Providers + +------+ + | Care Parts Facilitator Name | Role | Phone | + [...] | | | | disease not | [place], | [place], [place] | | | | | on chronic | [place] [address] | [address] | | | | | dialysis | Phone: | Phone: | | | | | ([facility]) | [phone] | [phone] | | | | | Hypertension | Fax: | Fax: | | | | | , | [phone] | [phone] | | | | | unspecified | | | | | | | type | | | +--------+ + + + + + Encounter Details +--------+ + + + + | Date | Type | Department | Care Team | Description | +--------+ + + + + | 07/28/ | Orders Only | [facility] | Farrukh Acuna MD | Iron deficiency | | 2019 | | NEPHROLOGY [place] | [address] [place] | (Primary Dx); Anemia | | | | [address] [place] | [address] [place], [place] | of chronic kidney | | | | [address] [place], [place] | [address] | failure, stage 5 | | | | [address] | | ([facility]); Stage 5 | | | | [phone] | | chronic kidney | | | | | | disease not on | | | | | | chronic dialysis | | | | | | ([facility]); Secondary | | | | | | hyperparathyroidism | | | | | | ([facility]); Hypertension, | | | | [...] | | | | | [place] [address] | | | | | | [phone] | | | | | | | | +--------+ + + + + | 08/09/ | Virtual | Nephrology | Farrukh Acuna MD | | | 2019 | Office | | [address] [place] | | | | Visit | | [address] [place] | | | | | | [address] | | | | | | | [...] | 07/28/2020 | | | | | ([facility]) Hypertension, | | | | | | unspecified type | | + +------+--------+ + + | Iron and Iron | Lab | Routin | Iron deficiency | Expected: | | Binding Capacity | | e | Anemia of chronic | 09/27/2019, Expires: | | | | | kidney failure, | 07/28/2020 | | | | | stage 5 ([facility]) Stage | | | | | | 5 chronic kidney | | | | | | disease not on | | | | | | chronic dialysis | | | | | | ([facility]) Hypertension, | | | | | | unspecified type | | + +------+--------+ + + | Ferritin | Lab | Routin | Iron deficiency | Expected: | | | | e | Anemia of chronic | 09/27/2019, Expires: | | | | | kidney failure, | 07/28/2020 | | | | | stage 5 ([facility]) Stage | | | | | | 5 chronic kidney | | | | | | disease not on | | | | | | chronic dialysis | | | | | | ([facility]) Hypertension, | | | | [...] chronic | Ordered: 07/28/2019 | | to [facility] | Referral | e | kidney [...]
--- OUTSIDE RECORDS SUMMARY | ~2020-06-08 | XMS | Encounter Summary ---
Demographics + + + | Address | [address] | | | [place] [address] | + + + | Home Phone [...] Team Providers + +------+ + | Care Tap Builder Name | Role | Phone | [...] | [address] | [address] [facility] | | | | | [place], [place] | [address] [place] | | | | | [address] | [address] | | | | | [phone] | | | +--------+ + + + [...] | | | | | [place] [address] | | | | | | [phone] | | | | | | | | +--------+ + + + + | 08/09/ | Virtual | Nephrology | Farrukh Acuna MD | | | 2019 | Office | | [address] [facility] | | | | Visit | | [address] [place], [place] | | | | | | [address] | | | | | | | [...]
--- OUTSIDE RECORDS SUMMARY | ~2020-06-08 | XMS | Encounter Summary ---
Demographics + + + | Address | [address] | | | [place] [address] | + + + | Home Phone [...] Team Providers + +------+ + | Care Electrode Turner And Finisher Name | Role | Phone | [...] + + | 11/17/ | Telephone | [facility] | Farrukh Acuna MD | Other (Patient call | | 2019 | | NEPHROLOGY [place] | [address] [place] | ) | | | | [address] [place] | [address] [facility] [place] | | | | | [address] [facility] [place] | [id number] | | | | | [address] | | | | | | [phone] | | | +--------+ + + + [...] Miscellaneous Notes Telephone Encounter - Trinidad Simon Dog Show Judge - 12/17/2019 10:24 AM PSTDr. A koum aware elephone Encounter - Trinidad Simon Dog Show Judge - 11/17/2019 2:11 PM PS TPatients daughter is concerned because her dad has been having some confusion. She states t hat the ER told her that he may have had a "small stroke". She states that patient was instr ucted to take Asprin after the hospital stay. She would just like to let Dr. Acuna know. El ectronically signed by Trinidad Simon Dog Show Judge at 11/17/2019 2:15 PM PSTdomonalisa ented in this encounter Plan of Treatment [...] | | | | | | [place] [address] | | | | | | [phone] | | | | | | | | +--------+ + + + + | 08/09/ | Virtual | Nephrology | Farrukh Acuna MD | | 2019 | Office | | [address] [place] | | | | Visit | | [address] [place] | | | | | | [address] | | | | | | | | +--------+ + + + + documented as of this encounter Visit Diagnoses Not on filedocumented in this encounter
--- OUTSIDE RECORDS SUMMARY | ~2020-06-08 | XMS | Encounter Summary ---
Demographics + + + | Address | [address] | | | [place] [address] | + + + | Home Phone [...] Team Providers + +------+ + | Care Stroke Coordinator Name | Role | Phone | + +------+ + PCP | Unavailable | + +------+ + Encounter Details +--------+ + + + + | Date | Type | Department | Care Team | Description | +--------+ + + + + | 05/28/ | Hospital | [facility] | Elisabeth, | CORON ATHEROSCL | | 2002 - | Encounter | [facility] | MD Joshua | [facility] | | | | CLINICAL DECISION | [address] [place] | | | 05/29/ | | [address] | [address] [place], [place] | | | 2002 | | [place], [place] | [address] | | | | | [address] | [phone] | | | | | [phone] | | | +--------+ + + + [...] | | | | | [place] [address] | | | | | | [phone] | | | | | | | | +--------+ + + + + | 08/09/ | Virtual | Nephrology | Farrukh Acuna MD | | | 2019 | Office | | [address] [facility] | | | | Visit | | [address] | | | | | | [address] | | | | | | | | +--------+ + + + + documented as of this encounter Visit Diagnoses + + | Diagnosis | + + | Coronary atherosclerosis of teller coronary artery | + + documented in this encounter"
--- OUTSIDE RECORDS SUMMARY | ~2020-06-08 | XMS | Encounter Summary ---
Demographics + + + | Address | [address] | | | [place] [address] | + + + | Home Phone [...] [place] | | | | | [address] | | + + + + + Care Team Providers + +------+ + | Care Laboratory Mechanic Helper Name | Role | Phone | + +------+ + PCP | Unavailable | + +------+ + Encounter Details +--------+ + + + + | Date | Type | Department | Care Team | Description | +--------+ + + + + | 02/26/ | Results | | Other, Faculty | | | 1993 | Only | | [phone] | | +--------+ + + + + [...] | | + +---------+ + + | [facility] DEPARTMENT OF | | | | | RADIOLOGY | | | | + +---------+ + + documented in this encounter Visit Diagnoses Not on filedocumented in this encounter"
--- OUTSIDE RECORDS SUMMARY | ~2020-06-08 | XMS | Encounter Summary ---
Demographics + + + | Address | [address] | | | [place] [address] | + + + | Home Phone [...] [place] | | | | | [address] | | + + + + + Care Team Providers + +------+ + | Care Director Of Intelligence Name | Role | Phone | [...] as of this encounter Progress Notes Interface, Roller Skate Repairer In - 11/10/2006 2:27 AM PSTCLINIC DATE: [...] he embarked on this. Galo Arora M.D. Data Reduction Technician, Plastic and Reconstructive Surgery [id number] / [id number] / [id number] / [id number] cc: Nelson Melara M.D. Anesthesiology. [facility]. [id number] signed by Interface, Roller Skate Repairer In at 11/10/2006 2:27 AM PSTdocume nted in this encounter Plan of Treatment Not on filedocumented as of this encounter Visit Diagnoses Not on filedocumented in this encounter"
--- OUTSIDE RECORDS SUMMARY | ~2020-06-08 | XMS | Encounter Summary ---
Demographics + + + | Address | [address] | | | [place] [address] | + + + | Home Phone [...] Team Providers + +------+ + | Care Curing Oven Attendant Name | Role | Phone | [...] [address] | | | | | [place], [place] | [place], [place] | | | | | [address] | [address] | | | | | [phone] | [phone] | | | | | | | [...] | | | | | [place] [address] | | | | | | [phone] | | | | | | | | +--------+ + + + + | 08/09/ | Virtual | Nephrology | Farrukh Acuna MD | | | 2020 | Office | | [address] [facility] [place] | | | | Visit | | [address] [place], [place] | | | | | | [address] | | | | | | | [...]
--- OUTSIDE RECORDS SUMMARY | ~2020-06-08 | XMS | Encounter Summary ---
Demographics + + + | Address | [address] | | | [place] [address] | + + + | Home Phone [...] Providers + +------+ + | Care Benefits Consultant Name | Role | Phone | [...] [place] | | | | | | [address] | (Fax) | | | | | [phone] | | | +--------+ + + + [...] | 2020 | Visit | | MD Dainel [address] | | | | | | [place] | | | | | | [place] [address] | | | | | | [phone] | | | | | | | | +--------+ + + + + | 08/09/ | Virtual | Nephrology | Farrukh Acuna MD | | | 2019 | Office | | [address] [facility] | | | | Visit | | [address] [place], [place] | | | | | | [address] | | | | | | | [...]
--- OUTSIDE RECORDS SUMMARY | ~2020-06-08 | XMS | Encounter Summary ---
Demographics + + + | Address | [address] | | | [place] [address] | + + + | Home Phone [...] Team Providers + +------+ + | Care Installation Superintendent Name | Role | Phone | + +------+ + | Rahul Silva MD | PCP | | + +------+ + Encounter Details +--------+ + + + + | Date | Type | Department | Care Team | Description | +--------+ + + + + | 09/17/ | Orders Only | [facility] | Collin Mirza, | | | 2015 | | NEPHROLOGY [place] | REPAIRER WELDING SYSTEMS AND EQUIPMENT [address] | | | | | [address] [place] | [address] | | | | | [address] [place], [place] | [facility] | | | | | [address] | [address] | | | | | [phone] | [phone] | | | | | | | [...] | | | | | [place] [address] | | | | | | [phone] | | | | | | | | +--------+ + + + + | 08/09/ | Virtual | Nephrology | Farrukh Acuna MD | | | 2019 | Office | | [address] [facility] [place] | | | | Visit | | [address] [place], [place] | | | | | | [address] | | | | | | | [...] | | | LAB | | | ERITREAN | | | | | + + [...]
--- OUTSIDE RECORDS SUMMARY | ~2020-06-08 | XMS | Encounter Summary ---
Demographics + + + | Address | [address] | | | [place] [address] | + + + | Home Phone [...] + +------+ + | Care Help Desk Intern Name | Role | Phone | + +------+ + PCP | Unavailable | + +------+ + Encounter Details +--------+ + + + + | Date | Type | Department | Care Team | Description | +--------+ + + + + | 05/22/ | [facility] | [facility] | Nelson Lutz MD | | | 1998 | Encounter | MED CTR GENERIC OP | [address], [place] | | | | | CONV DEPT [address] | [address] [place] | | | | | [place], | [address] | | | | | [place] [address] | | | | | | [phone] | | | +--------+ + + + [...] | | | | | [facility] | | | | | | [place] [address] | | | | | | [phone] | | | | | | | | +--------+ + + + + | 08/09/ | Virtual | Nephrology | Farrukh Acuna MD | | | 2019 | Office | | [address] [facility] | | | | Visit | | [address] [place], [place] | | | | | | [address] | | | | | | | | +--------+ + + + + documented as of this encounter Visit Diagnoses Not on filedocumented in this encounter"
--- OUTSIDE RECORDS SUMMARY | ~2020-06-08 | XMS | Encounter Summary ---
Demographics + + + | Address | [address] | | | [place] [address] | + + + | Home Phone [...] Providers + +------+ + | Care Hair Weaver Name | Role | Phone | [...] (OTHER) | | 2019 | Procedure | [facility] | [address] | | | | | OPER[address] | [place], [place] | | | | | [place] | [address] | | | | | [place], [place] | [phone] | | | | | [address] | | | | | | [phone] | | | +--------+ + + + [...] | | | | | [place] [address] | | | | | | [phone] | | | | | | | | +--------+ + + + + | 08/09/ | Virtual | Nephrology | Farrukh Acuna MD | | | 2020 | Office | | [address] | | | | Visit | | [address] [place] | | | | | | [address] | | | | | | | | +--------+ + + + + documented as of this encounter Visit Diagnoses Not on filedocumented in this encounter"
--- OUTSIDE RECORDS SUMMARY | ~2020-06-08 | XMS | Encounter Summary ---
Demographics + + + | Address | [address] | | | [place] [address] | + + + | Home Phone [...] Providers + +------+ + | Care Fruit Or Nut Grower Name | Role | Phone | [...] | | | [place] [address] | [place] [address] | | | | | [place] [address] | | | | | | [phone] | | | +--------+ + + + [...] | | | | | [place] [address] | | | | | | [phone] | | | | | | | | +--------+ + + + + | 08/09/ | Virtual | Nephrology | Farrukh Acuna MD | | 2019 | Office | | [address] [facility] | | | | Visit | | [address] [place] | | | | | | [address] | | | | | | | [...]
--- OUTSIDE RECORDS SUMMARY | ~2020-06-08 | XMS | Encounter Summary ---
Demographics + + + | Address | [address] | | | [place] [address] | + + + | Home Phone [...] Team Providers + +------+ + | Care First Cook Name | Role | Phone | [...] | sleep apnea) | | | | [place], | [place] | (Primary Dx); [place] | | | | [place] [address] | [address] | (chronic obstructive | | | | [phone] | | pulmonary disease) | | | [...] | | | | [place] [facility] [facility] | | | | | | [place] [address] | | | | | | [phone] | | | | | | | | +--------+ + + + + | 08/09/ | Virtual | Nephrology | Farrukh Acuna MD | | | 2019 | Office | | [address] [facility] | | | | Visit | | [facility] | | | | | | [address] | | | | | | | [...]
--- OUTSIDE RECORDS SUMMARY | ~2020-06-08 | XMS | Encounter Summary ---
Demographics + + + | Address | [address] | | | [place] [address] | + + + | Home Phone [...] Providers + +------+ + | Care Outside Maintenance Worker Name | Role | Phone | [...] + + | 09/01/ | Telephone | [facility] | Brian Orosco MD | Advice Only | | 2019 | | VASCULAR SURGERY | [address] | (surgery) | | | | [address] [place] | [place], [place] | | | | | [place], [place] | [address] | | | | | [address] | [phone] | | | | | [phone] | | | +--------+ + + + [...] transfer the call to a p rovidixie open tenter operator was caller made aware that if [...] | | | | [place] [facility] | | | | | | [place] [address] | | | | | | [phone] | | | | | | | | +--------+ + + + + | 08/09/ | Virtual | Nephrology | Farrukh Acuna MD | | | 2020 | Office | | [address] [facility] | | | | Visit | | [address] [place] | | | | | | [address] | | | | | | | | +--------+ + + + + documented as of this encounter Visit Diagnoses Not on filedocumented in this encounter"
--- OUTSIDE RECORDS SUMMARY | ~2020-06-08 | XMS | Encounter Summary ---
Demographics + + + | Address | [address] | | | [place] [address] | + + + | Home Phone [...] [place] | | | | | [address] | | + + + + + Care Team Providers + +------+ + | Care Drum Puller Name | Role | Phone | + +------+ + PCP | Unavailable | + +------+ + Encounter Details +--------+ + + + + | Date | Type | Department | Care Team | Description | +--------+ + + + + | 12/22/ | Results | | Other, Faculty | | | 1997 | Only | | [phone] | | +--------+ + + + + [...] | | | | | | 12/22/96 ge1992 hours. | | | | | | [...] + +---------+ + + | [facility] DEPARTMENT OF | | | | [...] | | | | | | | [id number] | | | | | | SPINE, [...] + +---------+ + + | [facility] DEPARTMENT OF | | | | | RADIOLOGY | | | | + +---------+ + + documented in this encounter Visit Diagnoses Not on filedocumented in this encounter"
--- OUTSIDE RECORDS SUMMARY | ~2020-06-08 | XMS | Encounter Summary ---
Demographics + + + | Address | [address] | | | [place] [address] | + + + | Home Phone [...] [place] | | | | | [address] | | + + + + + Care Team Providers + +------+ + | Care Circus Performer Name | Role | Phone | [...] [place] | | | | | | [address] | | | | | | [place], [place] | | | | | | [address] | | | | | | [phone] | | | +--------+ + + + [...] as of this encounter Progress Notes Interface, Siderographist In - 01/03/2007 5:08 AM PST [address] [address] Department of Orthopaedics, [employer] OP19 December 21, 1997 Jerry Smiley M.D. [address] [place] [id number] RE:Kavon Andujar MR#:[id number] Smiley: Thank [...] Carlson might like. Sincerely, Eric Mcclure M.D. Social Worker School, Department of Orthopaedics and Rehabilitation AY/egl A documented in this encounter Plan of Treatment Not on filedocumented as of this encounter Visit Diagnoses Not on filedocumented in this encounter"
--- OUTSIDE RECORDS SUMMARY | ~2020-06-08 | XMS | Clinical Summary ---
Demographics + + + | Address | [address] | | | [place] [address] | + + + | Home Phone [...] Providers + +------+ + | Care Log Skidder Name | Role | Phone | + [...] | | | | ([facility]), Secondary | | | | | [...] | | | | ([facility]), CKD (chronic | | | | | | | | kidney disease) | | | | | | | | stage 5, GFR less | | | | | | | | than 15 ml/min ([facility]) | | | [...] | | | ml/min ([facility]) | | | [...] | | | | ([facility]), Persistent | | | | | | | | proteinuria, CKD | | | | | | | | (chronic kidney | | | | | | | | disease) stage 5, | | | | | | | | GFR less than 15 | | | | | | | | ml/min ([facility]) | | | | | | | + + + +---------+------+------+-------+ Active Problems + + + | Problem | Noted Date | + + + | CKD (chronic kidney disease) stage 5, GFR less than 15 ml/min | 08/26/2019 | + + + + + | Overview: Added automatically from request for surgery | | [id number] | + + + + + | [...] & Plan: Controlled on current | | [id number] yr old male with COPD, current heavy [...] | | | ml/min ([facility]) | | | | | | (Primary Dx); Anemia | | | | | | of chronic kidney | | | | | | failure, stage 5 | | | | | | ([facility]); Persistent | | | | | | proteinuria; | | | | | | Essential | | | | | | hypertension; Iron | | | | | | deficiency; | | | | | | Secondary | | | | | | hyperparathyroidism | | | | | | ([facility]); 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, with | | | | | | long-term current | | | | | | use of insulin | | | | | | ([facility]); Edema of | | | | | | lower extremity; | | | | | | Tobacco dependence | | | | | | syndrome | +--------+ + + + + | 06/05/ | Orders Only | Nephrology | Ami Cole, | CKD (chronic kidney | | 2020 | | | Driver Education Instructor | disease) stage 5, | | | | | | GFR less than 15 | | | | | | ml/min ([facility]) | | | | | | (Primary Dx); Anemia | | | | | | of chronic kidney | | | | | | failure, stage 5 | | | | | | ([facility]); Persistent | | | | | | proteinuria; | | | | | | Essential | | | | | | hypertension; Iron | | | | | | deficiency | +--------+ + + + + | 05/31/ | Documentati | Nephrology | Ami Cole, | Results | | 2019 | on | | Driver Education Instructor | (interpath-05/29/2020 | | | | | | ) | +--------+ + + + + | 05/18/ | Telephone | Nephrology | Sandy Capellan | Other (ER report | 2019 | | | BAN Valadez | reviewed from | | | | | | Tello's DOS | | | | | | 05/16/20/No changes) | +--------+ + + + + | 05/04/ | Refill | Nephrology | Farrukh Acuna MD | Medication Refill | | 2019 | | | | | +--------+ + + + + | 04/06/ | Telephone | Nephrology | Farrukh Acuna MD | Other ([facility] fersonyaeme | | 2019 | | | | and maria t | | | | | | question) | +--------+ + + + + | 03/29/ | Documentati | Nephrology | Simon, | Other (IV feraheme | | 2019 | on | | Charlie Abdi | order sent to [facility]. | | | | | Finishing Lab Technician | IVT confirmation | | | | [...] | | | | ([facility]); Persistent | | | | | | proteinuria; CKD | | | | | | (chronic kidney | | | | | | disease) stage 5, | | | | | | GFR less than 15 | | | | | | ml/min ([facility]) | +--------+ + + + + | 03/27/ | Virtual | Nephrology | Farrukh Acuna MD | CKD (chronic kidney | 2019 | Office | | | disease) stage 5, | | | Visit | | | GFR less than 15 | | | | | | ml/min ([facility]) | | | | | | (Primary Dx); Anemia | | | | | | of chronic kidney | | | | | | failure, stage 5 | | | | | | ([facility]); Edema of | | | | [...] | | | | ([facility]); Secondary | | | | | | hyperparathyroidism | | | | | | ([facility]); Essential | | | | | | hypertension; | | | | | | Tobacco dependence | | | | | | syndrome | +--------+ + + + + | 03/23/ | Documentati | Nephrology | Alfred, | Results (03/21/20) | | 2020 | on | | Charlie Abdi | | | | | | Finishing Lab Technician | | +--------+ + + + + | 03/20/ | Telephone | Nephrology | Sandy Capellan | Other (Clarification | | 2019 | | | M, RN | on lab orders) | +--------+ + + + + | 03/16/ | Orders Only | Vascular Surgery | Trisha Conner DNP | | 2019 | | | | [...] | 06/19/ | Office | Pulmonology | Rodriguez Alina | | | 2019 | Visit | | MD Daniel [address] | | | | | | [address] [facility] | | | | | | [place] [address] | | | | | | [phone] | | | | | | | | +--------+ + + + + | 08/09/ | Virtual | Nephrology | Farrukh Acuna MD | | | 2019 | Office | | [address] [place] | | | | Visit | | [address] [place] | | | | | | [address] | | | | | | | [...] + + from Last 3 Months Results PTH + Calcium (05/29/2020) + + [...] + + Iron and Iron Binding Capacity (05/29/2020)Only the most recent of 2 results within the is included. + +--------+ + + + [...] Blood | + + Renal Function Panel (05/29/2020)Only the most recent of 2 results within [...] | + + LABS - EXTERNAL SCAN (05/18/2020 12:00 AM PDT)Only the most recent of 3 results within the time period is included. + + + | Narrative | Performed At | + + + | Ordered by an | | | unspecified provider. | | + + + External Lab: PTH, Intact (03/21/2020) + + [...] +--------+ +---------+--------+ | MEDICARE | MEDICA | [id number] | 07/01/20 | [phone] | | Medica | | | RE | | 05-Pre | 5 | | re | | | PART A | | sent | | | | | | AND B | | | | | | + +--------+ +--------+ +---------+--------+ | [employer] | MODA | [id number] | 07/04/20 | [phone] | | Medica | | MEDICAID HMO | HEALTH | | 19-Pre | 1 | | id | | | MDCD | | sent | | | | | | [place]MO [place] | | | | | | + +--------+ +--------+ +---------+--------+ | [employer] | MODA | [id number] | | [phone] | | Medica | | MEDICAID HMO [...] | Self | [birth year] | | [address] | | Art[place] | al/Fam | | 1940 | [id number] | [place] | | | [place] | | | 1 (Home) | [address] | + +--------+ +--------+ + + | Kavon Andujar | Person | Self | [birth year] | | [address] | | [place] | al/Fam | | 1940 | [phone] | [place] | | | [place] | | | 1 (Home) | [address] | + +--------+ +--------+ + + Advance Directives + + + + + | Type | Date Recorded | Patient | Explanation | | | | Disc Pad Grinder | | + + + + + | Power of | | | | | Internet Marketing Specialist | | | | + + [...]
--- OUTSIDE RECORDS SUMMARY | ~2020-06-08 | XMS | Encounter Summary ---
Demographics + + + | Address | [address] | | | [place] [address] | + + + | Home Phone [...] Team Providers + +------+ + | Care Pelt Inspector Name | Role | Phone | [...] + + | 02/07/ | Refill | [facility] | Farrukh Acuna MD | Medication Refill | | 2020 | | NEPHROLOGY [place] | [address] [place] | | | | | [address] | [address] [facility] [place] | | | | | [address] | [phone] | | | | | [place], [place] | | | | | | [address] | | | | | | [phone] | | | +--------+--------+ + + + [...] encounter Miscellaneous Notes Telephone Encounter - Trinidad Sampson Medical Assistant - 02/09/2020 4:05 PM PDTPer Nestor Acuna he will not fill this medication as it is not a kidney medication. Patient can wait until appointment with PCP to get a redill of medication. Patients daughter verbalized unde rstanding and urena no further questions at this time. ddendum Note - Trinidad Sampson Medica l Dramatic Coach - 02/08/2020 5:22 PM PDT Addended by: TRINIDAD SAMPSON on: 02/08/2020 05:22 P M Modules accepted: Orders Telephone Encounter - Trinidad Sampson Medical Assistant - 02/08/2020 5:19 PM [...] [address] | | | | | | [address] | | | | | | [place] [id number] | | | | | | [phone] | | | | | | | | +--------+ + + + + | 08/09/ | Virtual | Nephrology | Farrukh Acuna MD | | | 2020 | Office | | [address] [facility] | | | | Visit | | [address] [facility] | | | | | | [address] | | | | | | | | +--------+ + + + + documented as of this encounter Visit Diagnoses + + | Diagnosis | + + | Essential hypertension - Primary Unspecified essential hypertension | + + documented in this encounter"
--- OUTSIDE RECORDS SUMMARY | ~2020-06-08 | XMS | Encounter Summary ---
Demographics + + + | Address | [address] | | | [place] [address] | + + + | Home Phone [...] Team Providers + +------+ + | Care Shield Installer Name | Role | Phone | [...] [place] | | | | | | [address] | (Fax) | | | | | [phone] | | | +--------+ + + + [...] | | | | | [place] [address] | | | | | | [phone] | | | | | | | | +--------+ + + + + | 08/09/ | Virtual | Nephrology | Farrukh Acuna MD | | | 2019 | Office | | [address] [facility] | | | | Visit | | [address] [place], [place] | | | | | | [address] | | | | | | | [...]
--- OUTSIDE RECORDS SUMMARY | ~2020-06-08 | XMS | Encounter Summary ---
Demographics + + + | Address | [address] | | | [place] [address] | + + + | Home Phone [...] Providers + +------+ + | Care Network Infrastructure Architect Name | Role | Phone | [...] | Transaction, | | | | | [place], [place] | Provider Unknown | | | | | [address] | | | | | | [phone] | | | +--------+ + + + [...] | | | | | | [place] [address] | | | | | | [phone] | | | | | | | | +--------+ + + + + | 08/09/ | Virtual | Nephrology | Farrukh Acuna MD | | | 2019 | Office | | [address] [facility] | | | | Visit | | [address] [place] | | | | | | [address] | | | | | | | [...]
--- OUTSIDE RECORDS SUMMARY | ~2020-06-08 | XMS | Encounter Summary ---
Demographics + + + | Address | [address] | | | [place] [address] | + + + | Home Phone [...] Team Providers + +------+ + | Care Carbon Capture Power Plant Engineer Name | Role | Phone | [...] [address] | | | | | [place], [place] | [place], [place] | | | | | [address] | [address] | | | | | [phone] | [phone] | | | | | | | [...] | | | | | [place] [address] | | | | | | [phone] | | | | | | | | +--------+ + + + + | 08/09/ | Virtual | Nephrology | Farrukh Acuna MD | | | 2020 | Office | | [address] [facility] | | | | Visit | | [address] [place], [place] | | | | | | [address] | | | | | | | [...]
--- OUTSIDE RECORDS SUMMARY | ~2020-06-08 | XMS | Encounter Summary ---
Demographics + + + | Address | [address] | | | [place] [address] | + + + | Home Phone [...] +------+ + | Care Catalytic Converter Operator Helper Name | Role | Phone | + +------+ + | Rahul Silva MD | PCP | | + +------+ + Encounter Details +--------+ + + + + | Date | Type | Department | Care Team | Description | +--------+ + + + + | 11/27/ | Orders Only | [facility] | Conversion | | | 2017 | | NEPHROLOGY [place] | Transaction, | | | | | [address] | Provider Unknown | | | | | [address] [place] | | | | | | [address] | (Fax) | | | | | [phone] | | | +--------+ + + + [...] | | | | | [place] [address] | | | | | | [phone] | | | | | | | | +--------+ + + + + | 08/09/ | Virtual | Nephrology | Farrukh Acuna MD | | | 2019 | Office | | [address] [facility] | | | | Visit | | [address] [place], [place] | | | | | | [address] | | | | | | | [...] | | | LAB | | | [place] | | | | | + + [...]
--- OUTSIDE RECORDS SUMMARY | ~2020-06-08 | XMS | Encounter Summary ---
Demographics + + + | Address | [address] | | | [place] [address] | + + + | Home Phone [...] Team Providers + +------+ + | Care University Relations Vice President Name | Role | Phone | + +------+ + | Rahul Silva MD | PCP | | + +------+ + Encounter Details +--------+---------+ + + + | Date | Type | Department | Care Team | Description | +--------+---------+ + + + | 12/06/ | Office | [facility] | Farrukh Acuna MD | CKD (chronic kidney | | 2020 | Visit | NEPHROLOGY [place] | [address] [place] | disease) stage 5, | | | | [address] | [address] [place], [place] | GFR less than 15 | | | | [address] | [address] | ml/min (HCC) | | | | [place], [place] | | (Primary Dx); Anemia | | | | [address] | | of chronic kidney | | | | [phone] | | failure, stage 5 | | [...] Also: I see no need for acute RESPIRATORY CARE ASSISTANT. I see no need to send [...] 10/2016 with severe pneumonia, severe ZEKE; needed RESPIRATORY CARE ASSISTANT for ~5 weeks b efore renal function recovery mid 12/2016. He was admitted to [facility] for 3 nights in July [...] 10/2016 with severe pneumonia, severe ZEKE; needed RESPIRATORY CARE ASSISTANT for ~5 weeks b efore renal [...] Also: I see no need for acute RESPIRATORY CARE ASSISTANT. I see no need to send [...] | | | | [facility] | | | | | | [place] [address] | | | | | | [phone] | | | | | | | | +--------+ + + + + | 08/09/ | Virtual | Nephrology | Farrukh Acuna MD | | | 2019 | Office | | [address] [facility] | | | | Visit | | [address] | | | | | | [address] | | | | | | | [...]
--- OUTSIDE RECORDS SUMMARY | ~2020-06-08 | XMS | Encounter Summary ---
Demographics + + + | Address | [address] | | | [place] [address] | + + + | Home Phone [...] Providers + +------+ + | Care Take Out Waiter/Waitress Name | Role | Phone | [...] + + | 09/10/ | Hospital | [facility] | Brian Orosco MD | CKD (chronic kidney | | 2019 | Encounter | [facility] | [address] | disease) stage 5, | | | | OPERATING RO[address] | [place], [place] | GFR less than 15 | | | | [address] | [address] | ml/min ([facility]) | | | | [place], [place] | [phone] | | | | | [address] | | | | | | [phone] | | | +--------+ + + + [...] shunt, please contact your ph ysician at [phone]. Discharge instructions for Diagnostic Imaging sedation patients [...] . For any severe symptoms, please call 441 or report to your nearest Emergency Department. Acetaminophen; Hydrocodone tablets or capsules Brand Names: Anexsia, Lorcet, Lorcet HD, Lorcet Plus, Lortab, Folsom, Verdrocet, Vicodin, Vi codin ES, Vicodin HP, [...] information carefully each time. Talk to your salvage repairer regarding the use of this medicine in children. Special care may be needed. What side effects may I notice from receiving this medicine? Side effects that you should report to your doctor or health specialist wound care as soon as p ossible: allergic [...] attention (report to your doctor or health specialist wound care if they continue or are bothersome): [...] to an official disposal site. Contact the [facility] at [phone] or your [facility] government to find a site. If [...] this medicine? Tell your doctor or health specialist wound care if your pain does not go [...] cuts, scrapes, or blows. Date Last Reviewed: 12/01/201619995064-0429 [employer]. [address] [place] [address], [place] [address]. All righ ts reserved. This information is [...] and bl ood clots prevention. Prescription for Folsom given and side effects were explained. Patient states that he also takes oxycodone at home; patient and his family were educated about taki ng oxycodone or Folsom only and not both. OTC Tylenol intake precautions also discussed. Arabella ent and his family verbalized understanding and agreeable. Opportunity to ask questions give n, all questions were answered. Leana Pimentel RN documented in this encounter H&P Notes Brian Orosco MD - [facility]10/2019 12[facility] Pre-Operative History & [...] amputation, and stroke who is referred to ks for arteriovenous fistula plac ement. The patient's [...] CV: No peripheral edema, rate regular SKIN: [place], warm, dry without rash/lesion MS: ROM not [...] Orosco MD - 09/10/2019 2:00 PM PDT [facility] Operative Note Pre-operative Diagnosis: CKD and need for fpc dialysis access Post-operative Diagnosis: same Procedure(s): Right brachiocephalic fistula creation Surgeon: Brian Orosco MD Endoscope Technician(s): None Anesthesia: Monitor Anesthesia care and Local [...] | | | | | [address] [place] | | | | | | [place] [address] | | | | | | [phone] | | | | | | | | +--------+ + + + + | 08/09/ | Virtual | Nephrology | Farrukh Acuna MD | | | 2019 | Office | | [address] [facility] | | | | Visit | | [facility] | | | | | | [address] | | | | | | | [...] | | | POC | performed at [facility];[address] | | LABORATORY | | | | [address];[place] | | | | | | [address] | | | | + + + + + + + + | Specimen | + + | | + + + + + + + | Performing | Address | City/State/Zipcode | Phone Number | | Organization | | | | + + + + + | [facility] | [address] | [place] [address] | [phone] | + + + + + POC [...] | | | POC | performed at [facility];[address] | | LABORATORY | | | | [address];[place], [place] | | | | | | [address] | | | | + + + + + + + + | Specimen | + + | | + + + + + + + | Performing | Address | City/State/Zipcode | Phone Number | | Organization | | | | + + + + + | [facility] | [address] | [place] [address] | [phone] | + + + + + documented [...] One week or | | | longer, okoibf-hsx-ygzne use of | | | at least [...]
--- OUTSIDE RECORDS SUMMARY | ~2020-06-08 | XMS | Encounter Summary ---
Demographics + + + | Address | [address] | | | [place] [address] | + + + | Home Phone [...] Team Providers + +------+ + | Care Youtuber Name | Role | Phone | + [...] [address] | | | | | [place], [place] | [place], [place] | | | | | [address] | [address] | | | | | [phone] | [phone] | | | | | | | [...] | | | | | [place] [address] | | | | | | [phone] | | | | | | | | +--------+ + + + + | 08/09/ | Virtual | Nephrology | Farrukh Acuna MD | | | 2020 | Office | | [address] [facility] [place] | | | | Visit | | [address] [place], [place] | | | | | | [address] | | | | | | | [...] + | Attending/Visit Provider: , TAE WATKINS, LEONROA, , , , , E[facility], | EXTERNAL [...]
--- OUTSIDE RECORDS SUMMARY | ~2020-06-08 | XMS | Encounter Summary ---
Demographics + + + | Address | [address] | | | [place] [address] | + + + | Home Phone [...] [place] | | | | | [address] | | + + + + + Care Team Providers + +------+ + | Care Csr Name | Role | Phone | + [...] [address] | | | | | | [place], [place] | | | | | | [address] | | | | | | [phone] | | | +--------+ + + + [...]
--- OUTSIDE RECORDS SUMMARY | ~2020-06-08 | XMS | Encounter Summary ---
Demographics + + + | Address | [address] | | | [place] [address] | + + + | Home Phone [...] [place] | | | | | [address] | | + + + + + Care Team Providers + +------+ + | Care Commutator Undercutter Name | Role | Phone | + [...] [id number] | | | | | | [place], [place] | | | | | | [address] | | | | | | [phone] | | | +--------+ + + + [...] | + + + + + | [facility] | [address] | [place] [address] | | | PATHOLOGY | [address] [...] | + + + + + | [facility] | [address] | [place] [address] | | | PATHOLOGY | [address] | | | + + + + + documented in this encounter Visit Diagnoses Not on filedocumented in this encounter"
--- OUTSIDE RECORDS SUMMARY | ~2020-06-08 | XMS | Encounter Summary ---
Demographics + + + | Address | [address] | | | [place] [address] | + + + | Home Phone [...] Team Providers + +------+ + | Care Shoe Cementer Name | Role | Phone | [...] | | | stage 5, GFR | [address] | | | | | | less than | Phone: | | | | | | 15 ml/min | [phone] | | | | | | (HCC) | Fax: | | | | | | Procedures | [phone] | | | | | | VAS [...] | | | stage 5, GFR | [address] | | | | | | less than | Phone: | | | | | | 15 ml/min | [phone] | | | | | | ([facility]) | Fax: | | | | | | Procedures | [phone] | | | | | | VAS [...] + + | 10/20/ | Hospital | [facility] | Trisha Conner DNP | CKD (chronic kidney | | 2019 | Encounter | VASCULAR SURGERY | [address] | disease) stage 5, | | | | ULTRASOUND [address] | [place] | GFR less than 15 | | | | [address] | [address] | ml/min ([facility]) | | | | [place] | | | | | | [address] | | | | | | [phone] | | | +--------+ + + + [...] | | | | | [place] [address] | | | | | | [phone] | | | | | | | | +--------+ + + + + | 08/09/ | Virtual | Nephrology | Farrukh Acuna MD | | | 2019 | Office | | [address] [facility] | | | | Visit | | [address] [place] | | | | | | [address] | | | | | | | [...]
--- OUTSIDE RECORDS SUMMARY | ~2020-06-08 | XMS | Encounter Summary ---
Demographics + + + | Address | [address] | | | [place] [address] | + + + | Home Phone [...] [place] | | | | | [address] | | + + + + + Care Team Providers + +------+ + | Care Research Instructor Name | Role | Phone | + +------+ + PCP | Unavailable | + +------+ + Encounter Details +--------+ + + + + | Date | Type | Department | Care Team | Description | +--------+ + + + + | 03/30/ | Results | | Other, Faculty | | | 1992 | Only | | [phone] | | +--------+ + + + + [...] | | + +---------+ + + | [facility] DEPARTMENT OF | | [...] | | + +---------+ + + | [facility] DEPARTMENT OF | | [...] | | | | | | | [id number] AND | | | | | | [...] | | + +---------+ + + | [facility] DEPARTMENT OF | | [...] | | + +---------+ + + | [facility] DEPARTMENT OF | | [...] | | | | | | | [id number] | | | | | | CHEST: [...] | | | | | | | [id number] | | | | | | CHEST: [...] | | | | | | | [id number], | | | | | | PORTABLE, [...] | | + +---------+ + + | [facility] DEPARTMENT OF | | [...] | | | | | | | [id number], | | | | | | PORTABLE, [...] and | | | | | | Bessemer Ganzcatheter are | | | | | [...] | | + +---------+ + + | [facility] DEPARTMENT OF | | [...] | | + +---------+ + + | [facility] DEPARTMENT OF | | [...] | | | | | | a Bessemer-Lupe catheter | | | | | | [...] | | | | placement of a Bessemer-Lupe | | | | | | catheter. CHEST, | | | | | | SINGLE AP PORTABLE: | | | | | | 03-31-93 AT 1000 HOURS | | | | | | FINDINGS: Since the | | | | | | prior study, the | | | | | | Bessemer-Lupe catheter has | | | | | [...] IMPRESSION: | | | | | | Bessemer-Lupe catheter | | | | | | [...] The | | | | | | Bessemer-Lupe catheter | | | | | | [...] and | | | | | | Bessemer-Lupe catheter | | | | | | [...] endotracheal | | | | | | tube,Bessemer-Lupe catheter | | | | | | [...] | | | | | | a Bessemer-Lupe catheter | | | | | | [...] | | | | placement of a Bessemer-Lupe | | | | | | catheter. CHEST, | | | | | | SINGLE AP PORTABLE: | | | | | | 03-31-93 AT 1000 HOURS | | | | | | FINDINGS: Since the | | | | | | prior study, the | | | | | | Bessemer-Lupe catheter has | | | | | [...] IMPRESSION: | | | | | | Bessemer-Lupe catheter | | | | | | [...] The | | | | | | Bessemer-Lupe catheter | | | | | | [...] and | | | | | | Bessemer-Lupe catheter | | | | | | [...] endotracheal | | | | | | tube,Bessemer-Lupe catheter | | | | | | [...] | | + +---------+ + + | [facility] DEPARTMENT OF | | [...] | | | | | | a Bessemer-Lupe catheter | | | | | | [...] | | | | placement of a Bessemer-Lupe | | | | | | catheter. CHEST, | | | | | | SINGLE AP PORTABLE: | | | | | | 03-31-93 AT 1000 HOURS | | | | | | FINDINGS: Since the | | | | | | prior study, the | | | | | | Bessemer-Lupe catheter has | | | | | [...] IMPRESSION: | | | | | | Bessemer-Lupe catheter | | | | | | [...] The | | | | | | Bessemer-Lupe catheter | | | | | | [...] and | | | | | | Bessemer-Lupe catheter | | | | | | [...] endotracheal | | | | | | tube,Bessemer-Lupe catheter | | | | | | [...] | | + +---------+ + + | [facility] DEPARTMENT OF | | [...] | | | | | | a Bessemer-Lupe catheter | | | | | | [...] | | | | placement of a Bessemer-Lupe | | | | | | catheter. CHEST, | | | | | | SINGLE AP PORTABLE: | | | | | | 03-31-93 AT 1000 HOURS | | | | | | FINDINGS: Since the | | | | | | prior study, the | | | | | | Bessemer-Lupe catheter has | | | | | [...] IMPRESSION: | | | | | | Bessemer-Lupe catheter | | | | | | [...] The | | | | | | Bessemer-Lupe catheter | | | | | | [...] and | | | | | | Bessemer-Lupe catheter | | | | | | [...] endotracheal | | | | | | tube,Bessemer-Lupe catheter | | | | | | [...] | | + +---------+ + + | [facility] DEPARTMENT OF | | [...] | | | | | | a Bessemer-Lupe catheter | | | | | | [...] | | | | placement of a Bessemer-Lupe | | | | | | catheter. CHEST, | | | | | | SINGLE AP PORTABLE: | | | | | | 03-31-93 AT 1000 HOURS | | | | | | FINDINGS: Since the | | | | | | prior study, the | | | | | | Bessemer-Lupe catheter has | | | | | [...] IMPRESSION: | | | | | | Bessemer-Lupe catheter | | | | | | [...] The | | | | | | Bessemer-Lupe catheter | | | | | | [...] and | | | | | | Bessemer-Luep catheter | | | | | | [...] endotracheal | | | | | | tube,Bessemer-Lupe catheter | | | | | | [...] | | | | | | [facility]. | | | | | [...] | | | | | | a Bessemer-Lupe catheter | | | | | | [...] | | | | placement of a Bessemer-Lupe | | | | | | catheter. CHEST, | | | | | | SINGLE AP PORTABLE: | | | | | | 03-31-93 AT 1000 HOURS | | | | | | FINDINGS: Since the | | | | | | prior study, the | | | | | | Bessemer-Lupe catheter has | | | | | [...] IMPRESSION: | | | | | | Bessemer-Lupe catheter | | | | | | [...] The | | | | | | Bessemer-Lupe catheter | | | | | | [...] and | | | | | | Bessemer-Lupe catheter | | | | | | [...] endotracheal | | | | | | tube,Bessemer-Lupe catheter | | | | | | [...] | | | | | | a Bessemer-Lupe catheter | | | | | | [...] | | | | placement of a Bessemer-Lupe | | | | | | catheter. CHEST, | | | | | | SINGLE AP PORTABLE: | | | | | | 03-31-93 AT 1000 HOURS | | | | | | FINDINGS: Since the | | | | | | prior study, the | | | | | | Bessemer-Lupe catheter has | | | | | [...] IMPRESSION: | | | | | | Bessemer-Lupe catheter | | | | | | [...] The | | | | | | Bessemer-Lupe catheter | | | | | | [...] and | | | | | | Bessemer-Lupe catheter | | | | | | [...] endotracheal | | | | | | tube,Bessemer-Lupe catheter | | | | | | [...]
--- OUTSIDE RECORDS SUMMARY | ~2020-06-08 | XMS | Encounter Summary ---
Demographics + + + | Address | [address] | | | [place] [address] | + + + | Home Phone [...] Team Providers + +------+ + | Care Mushroom Picker Name | Role | Phone | [...] + + | 03/14/ | Refill | [facility] | Farrukh Acuna MD | Medication Refill | | 2020 | | NEPHROLOGY [place] | [address] [place] | | | | | [address] | [address] [place], [place] | | | | | [address] | [address] | | | | | [place], [place] | | | | | | [address] | | | | | | [phone] | | | +--------+--------+ + + + [...] | | | | [facility] | | | | | | [place] [address] | | | | | | [phone] | | | | | | | | +--------+ + + + + | 08/09/ | Virtual | Nephrology | Farrukh Acuna MD | | | 2019 | Office | | [address] [facility] | | | | Visit | | [address] [place] [address] | | | | | | [address] | | | | | | | [...]
--- OUTSIDE RECORDS SUMMARY | ~2020-06-08 | XMS | Encounter Summary ---
Demographics + + + | Address | [address] | | | [place] [address] | + + + | Home Phone [...] Providers + +------+ + | Care Carpenter Streetcar Name | Role | Phone | + +------+ + | Rahul Silva MD | PCP | | + +------+ + Encounter Details +--------+ + + + + | Date | Type | Department | Care Team | Description | +--------+ + + + + | 09/01/ | Orders Only | [facility] | Farrukh Acuna MD | | | 2013 | | NEPHROLOGY [place] | [address] [place] | | | | | [address] [place] | [address] [place], [place] | | | | | [address] [place], [place] | [address] | | | | | [address] | | | | | | [phone] | | | +--------+ + + + [...] | | | | [facility] [facility] [facility] | | | | | | [place] [address] | | | | | | [phone] | | | | | | | | +--------+ + + + + | 08/09/ | Virtual | Nephrology | Farrukh Acuna MD | | | 2019 | Office | | [address] [facility] | | | | Visit | | [facility] | | | | | | [address] | | | | | | | [...] | | | LAB | | | [place] | | | | | + + [...]
--- OUTSIDE RECORDS SUMMARY | ~2020-06-08 | XMS | Encounter Summary ---
Demographics + + + | Address | [address] | | | [place] [address] | + + + | Home Phone [...] Team Providers + +------+ + | Care Waiver Analyst Name | Role | Phone | [...] E | | | | | | ([facility]) | [place] | | | | | | Procedures | [address] | | | | | | VAS Arm | Phone: | | | | | | Bilateral | [phone] | | | | | | Mapping For | Fax: | | | | | | Dialysis | [phone] | | +--------+--------+ + + + + [...] E | | | | | | ([facility]) | [place] | | | | | | Procedures | [address] | | | | | | VAS Arm | Phone: | | | | | | Bilateral | [phone] | | | | | | Mapping For | Fax: | | | | | | Dialysis | [phone] | | +--------+--------+ + + + + Encounter Details +--------+ + + + + | Date | Type | Department | Care Team | Description | +--------+ + + + + | 08/20/ | Hospital | [facility] | Trisha Conner DNP | 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 | VASCULAR SURGERY | [address] | renal disease) ([facility]) | | | | ULTRASOUND [address] | [place], [place] | | | | | [address] | [address] | | | | | [place], [place] | | | | | | [address] | | | | | | [phone] | | | +--------+ + + + [...] | | | | ([facility]), Secondary | | | | | | | hyperparathyroidism | | | | | | | ([facility]) | | | | | | [...] + + + +---------+ + + | [address] | | | 1 | [...] | | | | | [place] [address] | | | | | | [phone] | | | | | | | | +--------+ + + + + | 08/09/ | Virtual | Nephrology | Farrkuh Acuna MD | | | 2019 | Office | | [address] [facility] | | | | Visit | | [address] [place] | | | | | | [address] | | | | | | | [...]
--- OUTSIDE RECORDS SUMMARY | ~2020-06-08 | XMS | Encounter Summary ---
Demographics + + + | Address | [address] | | | [place] [address] | + + + | Home Phone [...] Team Providers + +------+ + | Care Grader Operator Name | Role | Phone [...] ([facility]) | [place], [place] | | | | | | Procedures | [address] | | | | | | VAS Arm | Phone: | | | | | | Bilateral | [phone] | | | | | | Mapping For | Fax: | | | | | | Dialysis | [phone] | | +--------+--------+ + + + + [...] | 07/30/ | Telephone | [facility] | Trisha Conner DNP | Referral Consult | | 2019 | | CARDIOTHORACIC | [address] | | | | | SURGERY [address] | [place], [place] | | | | | [address] | [id number] | | | | | [place], [place] | | | | | | [address] | | | | | | [phone] | | | +--------+ + + + [...] imaging to be done at [facility] documented in this encounter Plan of Treatment +--------+ + + + + | Date | Type | Specialty | Care Team | Description | +--------+ + + + + | 06/19/ | Office | Pulmonology | Rodriguez Alina | | | 2019 | Visit | | MD Daniel [address] | | | | | | [place] [address] [facility] | | | | | | [place] [address] | | | | | | [phone] | | | | | | | | +--------+ + + + + | 08/09/ | Virtual | Nephrology | Farrukh Acuna MD | | | 2019 | Office | | [address] [place] | | | | Visit | | [address] [place] | | | | | | [address] | | | | | | | [...] + + | Meir Jama Results In - 08/20/2019 4:27 PM PDT [...]
--- OUTSIDE RECORDS SUMMARY | ~2020-06-08 | XMS | Encounter Summary ---
Demographics + + + | Address | [address] | | | [place] [address] | + + + | Home Phone [...] [place] | | | | | [address] | | + + + + + Care Team Providers + +------+ + | Care Zinc Plating Machine Operator Name | Role | Phone [...] | | [facility], [address] | | | | | | [place], [place] | | | | | | [address] | | | | | | [phone] | | | +--------+ + + + [...] as of this encounter Progress Notes Interface, Skin Former In - 12/25/2006 5:00 AM [facility] DATE: 03/16/98 PLASTIC SURGERY CLINIC [...] in the near future. Galo Arora M.D. Floor Service Worker [place], Division of Plastic & Reconstructive Surgery AYDEE/alfred documented in this encounter Plan of Treatment Not on filedocumented as of this encounter Visit Diagnoses Not on filedocumented in this encounter"
--- OUTSIDE RECORDS SUMMARY | ~2020-06-08 | XMS | Encounter Summary ---
Demographics + + + | Address | [address] | | | [place] [address] | + + + | Home Phone [...] Team Providers + +------+ + | Care Dietetic Technician Registered Name | Role | Phone | + [...] | | | [address] | [place] [address] | | | | | [place] [address] | | | | | | [phone] | | | +--------+ + + + [...] | | | | [facility] | | | | | | [place] [address] | | | | | | [phone] | | | | | | | | +--------+ + + + + | 08/09/ | Virtual | Nephrology | Farrukh Acuna MD | | | 2019 | Office | | [address] [facility] | | | | Visit | | [address] [place], [place] | | | | | | [address] | | | | | | | [...]
--- OUTSIDE RECORDS SUMMARY | ~2020-06-08 | XMS | Encounter Summary ---
Demographics + + + | Address | [address] | | | [place] [address] | + + + | Home Phone [...] Providers + +------+ + | Care Water And Fire Technician Name | Role | Phone | [...] | [address] | Surgical Endoscopist | | | | | [address] [facility] [place] | | | | | | [address] | | | | | | [phone] | | | +--------+ + + + [...] Miscellaneous Notes Telephone Encounter - Trinidad Simon, Asset Availability Leader - 09/03/2019 12:57 PM PDTSpoke to patient in regards to lab results. She verbalized understanding, I did not have the [facility] copy of the labs but I had them pulled up on [facility]. She insisted on knowing the results [...] questions at this time.Electr onically signed by Charlie Kraft Assistant at 09/03/2019 4:26 PM PDTTelephone Encounter - [...] be nice. Please call them back at [phone]. Detailed message may be left on phone: Yes Next OV: 10/04/19 If this is a symptom based call and you were unable to immediately transfer the call to [facility] staff, was caller made aware that if at any timehefeels it is an emergency they should call 911 or go to the nearest emergency room? Yes Is mobile therapist needed: no do cumented in this encounter Plan of Treatment +--------+ + + + + | Date | Type | Specialty | Care Team | Description | +--------+ + + + + | 06/19/ | Office | Pulmonology | Alina Frias | | | 2019 | Visit | | MD Daniel [address] | | | | | | [facility] | | | | | | [place] [address] | | | | | | [phone] | | | | | | | | +--------+ + + + + | 08/09/ | Virtual | Nephrology | Farrukh Acuna MD | | | 2019 | Office | | [address] [facility] | | | | Visit | | [address] [place] | | | | | | [address] | | | | | | | | +--------+ + + + + documented as of this encounter Visit Diagnoses Not on filedocumented in this encounter"
--- OUTSIDE RECORDS SUMMARY | ~2020-06-08 | XMS | Encounter Summary ---
Demographics + + + | Address | [address] | | | [place] [address] | + + + | Home Phone [...] + + | 07/26/ | Office | [facility] | Farrukh Acuna MD | Stage 5 chronic | | 2019 | Visit | NEPHROLOGY [place] | [address] [place] | kidney disease not | | | | [address] | [address] [place], [place] | on chronic dialysis | | | | [address] | [address] | (HCC) (Primary Dx); | | | | [place], [place] | | Edema of lower | | | | [address] | | extremity; Tobacco | | | | [phone] | | dependence syndrome; | | | [...] Also: I see no need for acute SUPERVISOR IN CIRCUIT TESTING. I see no need to send him [...] 05/31/19 1232 Encounter Date: 05/31/2019 Status: Signed Data Assistant: Farrukh Acuna MD (Physician) Patient Active Problem [...] 10/2016 with severe pneumonia, severe ZEKE; needed SUPERVISOR IN CIRCUIT TESTING for ~5 weeks b efore renal function recovery mid 12/2016. He was admitted to [facility] for 3 nights in July 2016 for [...] 19.5 (A) 05/27/2019 LABPROT 2,445.6 (A) 03/01/2019 [id number] 30 10/08/2018 Assessment: Mr. Andujar is a 78 y.o. male patient with stage IV CKD on a background of diabetes & hypert ension and recent hospitalization for C-diff and hehydration. The most likely pathology here is that of diabetic nephropathy +/- hypertensive nephrosclerosis/arteriolosclerosis. He was hospitalized in 10/2016 with severe pneumonia, severe ZEKE; needed SUPERVISOR IN CIRCUIT TESTING for ~5 weeks b efore renal function [...] Also: I see no need for acute SUPERVISOR IN CIRCUIT TESTING. I see no need to send him [...] | | | | | [address] [facility] | | | | | | [place] [address] | | | | | | [phone] | | | | | | | | +--------+ + + + + | 08/09/ | Virtual | Nephrology | Farrukh Acuna MD | | | 2019 | Office | | [address] [facility] | | | | Visit | | [address] [place] | | | | | | [address] | | | | | | | [...] chronic kidney failure, stage 5 ([facility]) | + + | Iron deficiency Other disorders of iron metabolism | + + documented in this encounter
--- OUTSIDE RECORDS SUMMARY | ~2020-06-08 | XMS | Encounter Summary ---
Demographics + + + | Address | [address] | | | [place] [address] | + + + | Home Phone [...] [place] | | | | | [address] | | + + + + + Care Team Providers + +------+ + | Care Remelt Pan Tank Operator Name | Role | Phone [...] Vyas | | | | | | [address] | | | | | | [place], [place] | | | | | | [address] | | | | | | [phone] | | | +--------+ + + + [...] as of this encounter Progress Notes Interface, Parking Garage Manager In - 01/03/2007 5:08 AM PST [address] [address] Department of Orthopaedics, [facility] OP19 December 21, 1997 Jerry Smiley M.D. [address] [place] [address] RE:Kavon Andujar MR#:[id number] Smiley: Thank [...] Carlson might like. Sincerely, Eric Mcclure M.D. Fig Bar Machine Operator, Department of Orthopaedics and Rehabilitation AY/egl A documented in this encounter Plan of Treatment Not on filedocumented as of this encounter Visit Diagnoses Not on filedocumented in this encounter"
--- OUTSIDE RECORDS SUMMARY | ~2020-06-08 | XMS | Encounter Summary ---
Demographics + + + | Address | [address] | | | [place] [address] | + + + | Home Phone [...] Providers + +------+ + | Care Manager Mobility Name | Role | Phone | + [...] [place] | | | | | [place], [place] | [place], [place] | | | | | [address] | [address] | | | | | [phone] | [phone] | | | | | | | [...] | | | | | [place] [address] | | | | | | [phone] | | | | | | | | +--------+ + + + + | 08/09/ | Virtual | Nephrology | Farrukh Acuna MD | | | 2020 | Office | | [address] [facility] [place] | | | | Visit | | [address] [place], [place] | | | | | | [address] | | | | | | | [...]
--- OUTSIDE RECORDS SUMMARY | ~2020-06-08 | XMS | Encounter Summary ---
Demographics + + + | Address | [address] | | | [place] [address] | + + + | Home Phone [...] Team Providers + +------+ + | Care Sand Wheeler Name | Role | Phone | + +------+ + | Rahul Silva MD | PCP | | + +------+ + Encounter Details +--------+ + + + + | Date | Type | Department | Care Team | Description | +--------+ + + + + | 03/24/ | Orders Only | [facility] | Farrukh Acuna MD | | | 2017 | | NEPHROLOGY [place] | [address] [place] | | | | | [address] [place] | [address] [place], [place] | | | | | [address] [place], [place] | [address] | | | | | [address] | | | | | | [phone] | | | +--------+ + + + [...] | | | | | [place] [address] | | | | | | [phone] | | | | | | | | +--------+ + + + + | 08/09/ | Virtual | Nephrology | Farrukh Acuna MD | | | 2019 | Office | | [address] [facility] | | | | Visit | | [address] [place], [place] | | | | | | [address] | | | | | | | [...]
--- OUTSIDE RECORDS SUMMARY | ~2020-06-08 | XMS | Encounter Summary ---
Demographics + + + | Address | [address] | | | [place] [address] | + + + | Home Phone [...] Providers + +------+ + | Care Mechanical Striper Name | Role | Phone | + +------+ + | Rahul Silva MD | PCP | | + +------+ + Encounter Details +--------+ + + + + | Date | Type | Department | Care Team | Description | +--------+ + + + + | 07/20/ | Orders Only | [facility] | Farrukh Acuna MD | Anemia of chronic | | 2019 | | NEPHROLOGY [place] | [address] [place] | renal failure, stage | | | | [address] [place] | [address] [place], [place] | 4 (severe) (HCC) | | | | [address] [place], [place] | [address] | (Primary Dx); Stage | | | | [address] | | 4 chronic kidney | | | | [phone] | | disease (HCC); | | | [...] | | | | | | [place] [address] | | | | | | [phone] | | | | | | | | +--------+ + + + + | 08/09/ | Virtual | Nephrology | Farrukh Acuna MD | | | 2019 | Office | | [address] [facility] | | | | Visit | | [address] [place] | | | | | | [address] | | | | | | | [...]
--- OUTSIDE RECORDS SUMMARY | ~2020-06-08 | XMS | Encounter Summary ---
Demographics + + + | Address | [address] | | | [place] [address] | + + + | Home Phone [...] [place] | | | | | [address] | | + + + + + Care Team Providers + +------+ + | Care Obstetrics Gynecology Physician Name | Role | Phone | + +------+ + PCP | Unavailable | + +------+ + Encounter Details +--------+ + + + + | Date | Type | Department | Care Team | Description | +--------+ + + + + | 04/06/ | Procedure - | Digestive Health | Record, Operation | Operative Report | | 1997 | | Center at [facility] [address] | | | | | Transcribed | [address] [facility] | | | | | | for Health and | | | | | | Healing, Building [address] | | | | | | [place], [place] | | | | | | [address] | | | | | | [phone] | | | +--------+ + + + [...] + | 04/06/1998 12:00 AM PDT [place] | | [facility] | | [address] [place], [place] [address] | | [facility] | | | | OPERATION RECORD | | | | Med Rec No.: [id number] Date: 04/06/98 | | | | Name: Kavon Andujar | | | | | | ATTENDING SURGEON: | | Galo Arora M.D. | | Building Admin, | | Division of Plastic & | | Reconstructive Surgery | | OFFSET MACHINE OPERATOR(S): | | Barry Fofana M.D. [...] | | Galo Arora M.D. | | Building Admin, | | Division of Plastic & | | Reconstructive Surgery | | WOJCIECH/pita | | | | P | | C: 05/12/98 lv | | cc: | | | + + documented in this encounter Visit Diagnoses Not on filedocumented in this encounter"
--- OUTSIDE RECORDS SUMMARY | ~2020-06-08 | XMS | Encounter Summary ---
Demographics + + + | Address | [address] | | | [place] [address] | + + + | Home Phone [...] Team Providers + +------+ + | Care Ceramic Chemist Name | Role | Phone | + +------+ + PCP | Unavailable | + +------+ + Encounter Details +--------+ + + + + | Date | Type | Department | Care Team | Description | +--------+ + + + + | 08/02/ | [facility] | [facility] | Nelson Lutz MD | | | 1991 | Encounter | MED CTR GENERIC OP | [address], [place] | | | | | CONV DEPT [address] | [address] [place] | | | | | [address] [place], | [address] | | | | | [place] [address] | | | | | | [phone] | | | +--------+ + + + [...] | | | | | [facility] | | | | | | [place] [address] | | | | | | [phone] | | | | | | | | +--------+ + + + + | 08/09/ | Virtual | Nephrology | Farrukh Acuna MD | | | 2019 | Office | | [address] [facility] | | | | Visit | | [address] [place], [place] | | | | | | [address] | | | | | | | | +--------+ + + + + documented as of this encounter Visit Diagnoses Not on filedocumented in this encounter"
--- OUTSIDE RECORDS SUMMARY | ~2020-06-08 | XMS | Encounter Summary ---
Demographics + + + | Address | [address] | | | [place] [address] | + + + | Home Phone [...] Providers + +------+ + | Care Car Rider Name | Role | Phone | + +------+ + | Rahul Silva MD | PCP | | + +------+ + Encounter Details +--------+ + + + + | Date | Type | Department | Care Team | Description | +--------+ + + + + | 07/14/ | Orders Only | [facility] | Conversion | | | 2018 | | NEPRHOLOGY [place] | Transaction, | | | | | [address] | Provider Unknown | | | | | [address] [place], [place] | [phone] | | | | | [address] | (Fax) | | | | | [phone] | | | +--------+ + + + [...] | | | | | [place] [address] | | | | | | [phone] | | | | | | | | +--------+ + + + + | 08/09/ | Virtual | Nephrology | Farrukh Acuna MD | | | 2019 | Office | | [address] [facility] | | | | Visit | | [address] [place], [place] | | | | | | [address] | | | | | | | [...]
--- OUTSIDE RECORDS SUMMARY | ~2020-06-08 | XMS | Encounter Summary ---
Demographics + + + | Address | [address] | | | [place] [address] | + + + | Home Phone [...] Team Providers + +------+ + | Care Newborn Photographer Name | Role | Phone | + +------+ + | Rahlu Silva MD | PCP | | + +------+ + Encounter Details +--------+ + + + + | Date | Type | Department | Care Team | Description | +--------+ + + + + | 11/11/ | Orders Only | [facility] | Olman oTussaint MD | | | 2015 | | [address] | [address] | | | | | [place], [place] | [place], [place] | | | | | [address] | [address] | | | | | [phone] | | | | | | | [...] | | | | | [place] [address] | | | | | | [phone] | | | | | | | | +--------+ + + + + | 08/09/ | Virtual | Nephrology | Farrukh Acuna MD | | | 2020 | Office | | [address] [facility] [place] | | | | Visit | | [address] [place], [place] | | | | | | [address] [...]
--- OUTSIDE RECORDS SUMMARY | ~2020-06-08 | XMS | Encounter Summary ---
Demographics + + + | Address | [address] | | | [place] [address] | + + + | Home Phone [...] Providers + +------+ + | Care Technical Services Coordinator Name | Role | Phone | [...] + + | 09/13/ | Telephone | [facility] | Terri Aguilar, | Follow-up | | 2019 | | VASCULAR SURGERY | Patient Financial Advocate | | | | | [address] | | | | | | [place] | | | | | | [address] | | | | | | [phone] | | | +--------+ + + + [...] Miscellaneous Notes Telephone Encounter - Terri Aguilar Patient Financial Advocate - 09/13/2019 11:01 AM PDTSpoke wi th pt's daughter and pt. Pt is doing okay - there was some increased pain at the site, but t he bandages were removed this morning and the pain is much better. Reminded both of post-op instructions. He is scheduled for f/u with [facility] on 09/30/2019. Encouraged both to [...] W | | | | | | [facility] | | | | | | [place] [address] | | | | | | [phone] | | | | | | | | +--------+ + + + + | 08/09/ | Virtual | Nephrology | Farrukh Acuna MD | | | 2019 | Office | | [address] [facility] | | | | Visit | | [address] [place] | | | | | | [address] | | | | | | | | +--------+ + + + + documented as of this encounter Visit Diagnoses Not on filedocumented in this encounter"
--- OUTSIDE RECORDS SUMMARY | ~2020-06-08 | XMS | Encounter Summary ---
Demographics + + + | Address | [address] | | | [place] [address] | + + + | Home Phone [...] Team Providers + +------+ + | Care Carbonizer Name | Role | Phone | + +------+ + | Rahul Silva MD | PCP | | + +------+ + Encounter Details +--------+ + + + + | Date | Type | Department | Care Team | Description | +--------+ + + + + | 03/26/ | Orders Only | [facility] | Victoriano [place] | | | 2016 | | CONVERSION [address] | MD [address] | | | | | [address] | [address] | | | | | [place], [place] | [place] [address] | | | | | [address] | | | | | | [phone] | | | +--------+ + + + [...] | | | | MARIA VICTORIA [facility] | | | | | | [place] [address] | | | | | | [phone] | | | | | | | | +--------+ + + + + | 08/09/ | Virtual | Nephrology | Farrukh Acuna MD | | | 2019 | Office | | [address] [facility] | | | | Visit | | [address] [place] | | | | | | [address] | | | | | | | [...] pressures of 5-10mmHg. MEASUREMENTS | | | Scrap Drop Operator: Authenticated by: VICTORIANO BIRMINGHAM MD Report | | | Date/Time: 03-27-2016 13:39:46 | | + + + + + | Procedure Note | + + | Meir Jama Conversion - 07/22/2019 7:56 PM PDT Patient Name: Demetra Andujar of | | : 1940 Performing Physician: VICTORIANO BIRMINGHAM | | MD INDICATIONS H | | NAHED ANDERSON 1. This was a technically difficult study [...] venous pressures of 5-10mmHg. | | MEASUREMENTS Scrap Drop Operator: Truditicated by: VICTORIANO Ho | | Date/Time: 03-27-2016 [...] | |MEASUREMENTS | | | | | |Scrap Drop Operator: | |Authenticated by: VICTORIANO BIRMINGHAM MD | [...]
--- OUTSIDE RECORDS SUMMARY | ~2020-06-08 | XMS | Encounter Summary ---
Demographics + + + | Address | [address] | | | [place] [address] | + + + | Home Phone [...] Team Providers + +------+ + | Care Aviation Safety Inspector Name | Role | Phone | + +------+ + | Rahul Silva MD | PCP | | + +------+ + Encounter Details +--------+ + + + + | Date | Type | Department | Care Team | Description | +--------+ + + + + | 07/11/ | Orders Only | [facility] | Farrukh Acuna MD | | | 2013 | | NEPHROLOGY [place] | [address] [place] | | | | | [address] [place] | [address] [place], [place] | | | | | [address] [place], [place] | [address] | | | | | [address] | | | | | | [phone] | | | +--------+ + + + [...] | | | MARIA VICTORIA [facility] [facility] | | | | | | [place] [address] | | | | | | [phone] | | | | | | | | +--------+ + + + + | 08/09/ | Virtual | Nephrology | Farrukh Acuna MD | | | 2019 | Office | | [address] [facility] | | | | Visit | | [facility] | | | | | | [address] | | | | | | | [...]
--- OUTSIDE RECORDS SUMMARY | ~2020-06-08 | XMS | Encounter Summary ---
Demographics + + + | Address | [address] | | | [place] [address] | + + + | Home Phone [...] Providers + +------+ + | Care Marine Services Technician Name | Role | Phone | + +------+ + | Rahul Silva MD | PCP | | + +------+ + Encounter Details +--------+ + + + + | Date | Type | Department | Care Team | Description | +--------+ + + + + | 06/23/ | Orders Only | [facility] | Provider, | Chronic kidney | | 2019 | | SYSTEM GENERIC OP | [address], [address] | disease, stage IV | | | | CONVERSION [address] | [address] | (severe) ([facility]); | | | | [address] [place], [place] | [place] [address] | Persistent | | | | [address] | | proteinuria; | | | | [phone] | | Secondary | | | | [...] | | | | | [place] [address] | | | | | | [phone] | | | | | | | | +--------+ + + + + | 08/09/ | Virtual | Nephrology | Farrukh Acuna MD | | | 2019 | Office | | [address] [facility] | | | | Visit | | [address] [place], [place] | | | | | | [address] | | | | | | | [...]
--- OUTSIDE RECORDS SUMMARY | ~2020-06-08 | XMS | Encounter Summary ---
Demographics + + + | Address | [address] | | | [place] [address] | + + + | Home Phone [...] Providers + +------+ + | Care Prosthetic Technician Name | Role | Phone | + +------+ + | Rahul Silva MD | PCP | | + +------+ + Encounter Details +--------+ + + + + | Date | Type | Department | Care Team | Description | +--------+ + + + + | 05/27/ | Orders Only | [facility] | Farrukh Acuna MD | | | 2017 | | NEPHROLOGY [place] | [address] [place] | | | | | [address] [place] | [address] [place], [place] | | | | | [address] [place], [place] | [address] | | | | | [address] | | | | | | [phone] | | | +--------+ + + + [...] | | | | | [place] [address] | | | | | | [phone] | | | | | | | | +--------+ + + + + | 08/09/ | Virtual | Nephrology | Farrukh Acuna MD | | | 2019 | Office | | [address] [facility] | | | | Visit | | [address] [place] | | | | | | [address] | | | | | | | [...] | | LAB | | | BRITISH | | | | | + + [...]
--- OUTSIDE RECORDS SUMMARY | ~2020-06-08 | XMS | Encounter Summary ---
Demographics + + + | Address | [address] | | | [place] [address] | + + + | Home Phone [...] [place] | | | | | [address] | | + + + + + Care Team Providers + +------+ + | Care Fructose Loader Name | Role | Phone | [...] | | | | | | [address] | | | | | | [place], [place] | | | | | | [address] | | | | | | [phone] | | | +--------+ + + + [...] as of this encounter Progress Notes Interface, Cleaner Furniture In - 01/22/2007 3:04 AM PST [address] [address] or June 07, 1997 Pravin VALLES MD [address] [facility] [address] RE:Kavon Andujar MR#:[id number] Valles: I saw Kavon Andujar in the Neurology Clinic today and have enclosed a copy of my note. 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 He [...] the telephone. Sincerely, Michelle Landon M.D. Director Post, Neurology JINNY/ C: 06/13/97 cc: Alina Moise M.D. Division of Neurosurgery [facility] Robert Carlson M.D. Division of Vascular Surgery [facility] documented in this encounter Plan of Treatment Not on filedocumented as of this encounter Visit Diagnoses Not on filedocumented in this encounter
--- OUTSIDE RECORDS SUMMARY | ~2020-06-08 | XMS | Encounter Summary ---
Demographics + + + | Address | [address] | | | [place] [address] | + + + | Home Phone [...] Providers + +------+ + | Care Application Manager Name | Role | Phone | + +------+ + | Mehrdad Bergman | PCP | | + +------+ + Reason for Visit +---------+ + | Reason | Comments | +---------+ + | Results | interpath-05/29/2020 | +---------+ + Encounter Details +--------+ + + + + | Date | Type | Department | Care Team | Description | +--------+ + + + + | 05/31/ | Documentati | [facility] | Ami Cole, | Results | | 2020 | on | NEPRHOLOGY [place] | Program Evaluation Consultant | (interpath-05/29/2020 | | | | [address] | | ) | | | | [address] [place], [place] | | | | | | [address] | | | | | | [phone] | | | +--------+ + + + [...] | | | | | [facility] | | | | | | [place] [address] | | | | | | [phone] | | | | | | | | +--------+ + + + + | 08/09/ | Virtual | Nephrology | Farrukh Acuna MD | | | 2019 | Office | | [address] [address] [facility] | | | | Visit | | [facility] | | | | | | [address] | | | | | | | [...]
--- OUTSIDE RECORDS SUMMARY | ~2020-06-08 | XMS | Encounter Summary ---
Demographics + + + | Address | [address] | | | [place] [address] | + + + | Home Phone [...] Team Providers + +------+ + | Care Progress Worker Name | Role | Phone | [...] | | | MARIA VICTOR[place] [address] | [place] [address] | | | | | [place] [address] | | | | | | [phone] | | | +--------+ + + + [...] | | | | | [address] [facility] | | | | | | [place] [address] | | | | | | [phone] | | | | | | | | +--------+ + + + + | 08/09/ | Virtual | Nephrology | Farrukh Acuna MD | | | 2019 | Office | | [address] [facility] | | | | Visit | | [address] [place], [place] | | | | | | [address] | | | | | | | [...]
--- OUTSIDE RECORDS SUMMARY | ~2020-06-08 | XMS | Encounter Summary ---
Demographics + + + | Address | [address] | | | [place] [address] | + + + | Home Phone [...] Providers + +------+ + | Care Instructor Business Education Name | Role | Phone | + +------+ + | Rahul Silva MD | PCP | | + +------+ + Encounter Details +--------+ + + + + | Date | Type | Department | Care Team | Description | +--------+ + + + + | 12/19/ | Orders Only | [facility] | Conversion | | | 2016 | | NEPHROLOGY [place] | Transaction, | | | | | [address] | Provider Unknown | | | | | [address] [place] | | | | | | [address] | (Fax) | | | | | [phone] | | | +--------+ + + + [...] | | | | | [place] [address] | | | | | | [phone] | | | | | | | | +--------+ + + + + | 08/09/ | Virtual | Nephrology | Farrukh Acuna MD | | | 2019 | Office | | [address] [facility] | | | | Visit | | [address] [place], [place] | | | | | | [address] | | | | | | | [...]
--- OUTSIDE RECORDS SUMMARY | ~2020-06-08 | XMS | Encounter Summary ---
Demographics + + + | Address | [address] | | | [place] [address] | + + + | Home Phone [...] [place] | | | | | [address] | | + + + + + Care Team Providers + +------+ + | Care Physical Medicine Specialist Name | Role | Phone | [...] [id number] | | | | | | [place], [place] | | | | | | [address] | | | | | | [phone] | | | +--------+ + + + [...] | + + + + + | [facility] | [address] | [place] [address] | | | PATHOLOGY | [address] [...] | + + + + + | [facility] | [address] | [place] [address] | | | PATHOLOGY | [address] [...] OF | [address] | [place] [address] | | | PATHOLOGY | [address] | | | + + + + + SURGICAL PATHOLOGY (04/06/1998) + + + + + + | Component | Value | Ref Range | Performed | Pathologist | | | | | At | Signature | + + + + + + | SURGICAL | SOURCE OF SPECIMEN: SEE | | [facility] | | | PATHOLOGY | RESULTS [...] | + + + + + | [facility] | [address] | [place] [address] | | | PATHOLOGY | [address] | | | + + + + + documented in this encounter Visit Diagnoses Not on filedocumented in this encounter
--- OUTSIDE RECORDS SUMMARY | ~2020-06-08 | XMS | Encounter Summary ---
Demographics + + + | Address | [address] | | | [place] [address] | + + + | Home Phone [...] [place] | | | | | [address] | | + + + + + [...] Clinic | | | | | | [facility], [address] | | | | | | [place], [place] | | | | | | [address] | | | | | | [phone] | | | +--------+ + + + [...] as of this encounter Progress Notes Interface, Scholarship Counselor In - 01/09/2007 5:07 AM PST CLINIC DATE: 10/03/97 [facility] - PROGRESS NOTE [...] Vargas D.O. Resident, Anesthesiology Nelson Melara M.D. Shellfish Sorter, Anesthesiology [facility] KAYLEENM/cjv cc: [facility] [place] [address] JESSENIA RODRIGUEZ MD DEPARTMENT OF FAMILY MEDICINE [facility] documented in this encounter Plan of Treatment Not on filedocumented as of this encounter Visit Diagnoses Not on filedocumented in this encounter"
--- OUTSIDE RECORDS SUMMARY | ~2020-06-08 | XMS | Encounter Summary ---
Demographics + + + | Address | [address] | | | [place] [address] | + + + | Home Phone [...] [place] | | | | | [address] | | + + + + + Care Team Providers + +------+ + | Care Buddhist Monk Name | Role | Phone | + [...] Clinic | | | | | | [facility], [address] | | | | | | [place], [place] | | | | | | [address] | | | | | | [phone] | | | +--------+ + + + [...] as of this encounter Progress Notes Interface, Windows Software Engineer In - 12/25/2006 5:00 AM [facility] [...] the near future. Galo Arora M.D. Floor And Wall Applier [employer], Division of Plastic & Reconstructive Surgery AYDEE/alfred documented in this encounter Plan of Treatment Not on filedocumented as of this encounter Visit Diagnoses Not on filedocumented in this encounter"
--- OUTSIDE RECORDS SUMMARY | ~2020-06-08 | XMS | Encounter Summary ---
Demographics + + + | Address | [address] | | | [place] [address] | + + + | Home Phone [...] + +------+ + | Care Director Of Workforce Development Name | Role | Phone | [...] + + | 09/07/ | Telephone | [facility] | Sandy Gomez, | Surgery Appointment | | 2019 | | VASCULAR SURGERY | RN | | | | | [address] | | | | | | [place] | | | | | | [address] | | | | | | [phone] | | | +--------+ + + + [...] | | | | | [facility] | | | | | | [place] [address] | | | | | | [phone] | | | | | | | | +--------+ + + + + | 08/09/ | Virtual | Nephrology | Farrukh Acuna MD | | | 2019 | Office | | [address] [facility] | | | | Visit | | [address] [place] | | | | | | [address] | | | | | | | | +--------+ + + + + documented as of this encounter Visit Diagnoses Not on filedocumented in this encounter"
--- OUTSIDE RECORDS SUMMARY | ~2020-06-08 | XMS | Encounter Summary ---
Demographics + + + | Address | [address] | | | [place] [address] | + + + | Home Phone [...] Providers + +------+ + | Care Site Safety Manager Name | Role | Phone | + +------+ + | Rahul Silva MD | PCP | | + +------+ + Reason for Visit +--------+--------+ + | Reason | Onset | Comments | | | Date | | +--------+--------+ + | Other | 12/07/ | Blood pressure concern. | | | 2020 | | +--------+--------+ [...] [address] [place] | [address] [facility], [place] | | | | | [address] [place], [place] | [address] | | | | | [address] | | | | | | [phone] | | | +--------+ + + + [...] Notes Telephone Encounter - Trinidad Simon Senior Market Intelligence Consultant - 12/07/2019 5:29 PM PSTPatie nts [...] | | | | | | [place] [address] | | | | | | [phone] | | | | | | | | +--------+ + + + + | 08/09/ | Virtual | Nephrology | Farrukh Acuna MD | | | 2019 | Office | | [address] [facility] | | | | Visit | | [address] [place] | | | | | | [address] | | | | | | | | +--------+ + + + + documented as of this encounter Visit Diagnoses Not on filedocumented in this encounter"
--- OUTSIDE RECORDS SUMMARY | ~2020-06-08 | XMS | Encounter Summary ---
Demographics + + + | Address | [address] | | | [place] [address] | + + + | Home Phone [...] Providers + +------+ + | Care Garment Finisher Name | Role | Phone | + +------+ + | Rahul Silva MD | PCP | | + +------+ + Encounter Details +--------+ + + + + | Date | Type | Department | Care Team | Description | +--------+ + + + + | 02/12/ | Orders Only | [facility] | Conversion | | | 2018 | | NEPHROLOGY [place] | Transaction, | | | | | [address] | Provider Unknown | | | | | [address] [place] | | | | | | [address] | (Fax) | | | | | [phone] | | | +--------+ + + + [...] | | | | | [place] [address] | | | | | | [phone] | | | | | | | | +--------+ + + + + | 08/09/ | Virtual | Nephrology | Farrukh Acuna MD | | | 2019 | Office | | [address] [facility] | | | | Visit | | [address] [place], [place] | | | | | | [address] | | | | | | | [...]
--- OUTSIDE RECORDS SUMMARY | ~2020-06-08 | XMS | Encounter Summary ---
Demographics + + + | Address | [address] | | | [place] [address] | + + + | Home Phone [...] Providers + +------+ + | Care Campaign Consultant Name | Role | Phone | [...] [address] | | | | | [place], [place] | [place], [place] | | | | | [address] | [address] | | | | | [phone] | [phone] | | | | | | | [...] | | | | | [place] [address] | | | | | | [phone] | | | | | | | | +--------+ + + + + | 08/09/ | Virtual | Nephrology | Farrukh Acuna MD | | | 2020 | Office | | [address] [facility] [place] | | | | Visit | | [address] [place], [place] | | | | | | [address] | | | | | | | [...]
--- OUTSIDE RECORDS SUMMARY | ~2020-06-08 | XMS | Encounter Summary ---
Demographics + + + | Address | [address] | | | [place] [address] | + + + | Home Phone [...] Team Providers + +------+ + | Care Seamless Tube Roller Name | Role | Phone | [...] + + | 10/19/ | Documentati | [facility] | Simon, | Results (09/22/19) | | 2019 | on | NEPHROLOGY [place] | [facility] | | | | | [address] | Substitute School Nurse | | | | | [address] | | | | | | [place] | | | | | | [address] | | | | | | [phone] | | | +--------+ + + + [...] | | | | | | [place] [address] | | | | | | [phone] | | | | | | | | +--------+ + + + + | 08/09/ | Virtual | Nephrology | Farrukh Acuna MD | | | 2019 | Office | | [address] [place] | | | | Visit | | [address] [place] | | | | | | [address] | | | | | | | [...]
--- OUTSIDE RECORDS SUMMARY | ~2020-06-08 | XMS | Encounter Summary ---
Demographics + + + | Address | [address] | | | [place] [address] | + + + | Home Phone [...] [place] | | | | | [address] | | + + + + + Care Team Providers + +------+ + | Care Pcat Instructor Name | Role | Phone | + +------+ + PCP | Unavailable | + +------+ + Encounter Details +--------+ + + + + | Date | Type | Department | Care Team | Description | +--------+ + + + + | 04/06/ | Procedure - | Digestive Health | Record, Operation | Operative Report | | 1997 | | Center at [facility] [address] | | | | | Transcribed | [facility] | | | | | | for Health and | | | | | | Healing, [address] | | | | | | [place], [place] | | | | | | [address] | | | | | | [phone] | | | +--------+ + + + [...] + + | 04/06/1998 12:00 AM PDT [place] | | [facility] | | [address] [place], [place] [address] | | [facility] | | | | OPERATION RECORD | | | | Med Rec No.: [id number] Date: 04/06/98 | | | | Name: Kavon Andujar | | | | | | ATTENDING SURGEON: | | Galo Arroa M.D. | | Care Provider, | | Division of Plastic & | | Reconstructive Surgery | | CLOTH INSPECTOR(S): | | Barry Fofana M.D. | | [...] | | Galo Arora M.D. | | Care Provider, | | Division of Plastic & | | Reconstructive Surgery | | WOJCIECH/pita | | | | P | | C: 05/12/98 lv | | cc: | | | + + documented in this encounter Visit Diagnoses Not on filedocumented in this encounter"
--- OUTSIDE RECORDS SUMMARY | ~2020-06-08 | XMS | Encounter Summary ---
Demographics + + + | Address | [address] | | | [place] [address] | + + + | Home Phone [...] Team Providers + +------+ + | Care Glassware Selector Name | Role | Phone | + +------+ + | Rahul Silva MD | PCP | | + +------+ + Encounter Details +--------+ + + + + | Date | Type | Department | Care Team | Description | +--------+ + + + + | 07/30/ | Orders Only | [facility] | Conversion | | | 2016 | | NEPRHOLOGY [place] | Transaction, | | | | | [address] | Provider Unknown | | | | | [address] [place], [place] | [phone] | | | | | [address] | (Fax) | | | | | [phone] | | | +--------+ + + + [...] | | | | | [place] [address] | | | | | | [phone] | | | | | | | | +--------+ + + + + | 08/09/ | Virtual | Nephrology | Farrukh Acuna MD | | | 2019 | Office | | [address] [facility] | | | | Visit | | [address] [place], [place] | | | | | | [address] | | | | | | | [...]
--- OUTSIDE RECORDS SUMMARY | ~2020-06-08 | XMS | Encounter Summary ---
Demographics + + + | Address | [address] | | | [place] [address] | + + + | Home Phone [...] [place] | | | | | [address] | | + + + + + Care Team Providers + +------+ + | Care Debt Collector Name | Role | Phone | [...] [address] | | | | | | [place], [place] | | | | | | [address] | | | | | | [phone] | | | +--------+ + + + [...] as of this encounter Progress Notes Interface, Inspector And Sorter In - 01/09/2007 5:07 AM PST CLINIC DATE: 10/03/97 [facility] - PROGRESS NOTE [...] Vargas D.O. Resident, Anesthesiology Nelson Melara M.D. Video Operator, Anesthesiology [facility] KAYLEENM/cjv cc: [facility] [address] JESSENIA RODRIGUEZ MD DEPARTMENT OF FAMILY MEDICINE [facility] documented in this encounter Plan of Treatment Not on filedocumented as of this encounter Visit Diagnoses Not on filedocumented in this encounter"
--- OUTSIDE RECORDS SUMMARY | ~2020-06-08 | XMS | Encounter Summary ---
Demographics + + + | Address | [address] | | | [place] [address] | + + + | Home Phone [...] [place] | | | | | [address] | | + + + + + Care Team Providers + +------+ + | Care Electoral Officer Name | Role | Phone | [...] Clinic | | | | | | [facility], [address] | | | | | | [place], [place] | | | | | | [address] | | | | | | [phone] | | | +--------+ + + + [...] as of this encounter Progress Notes Interface, Harvest Field Ticketer In - 01/22/2007 3:04 AM PST CLINIC DATE: 06/07/97 NEUROLOGY CLINIC HISTORY OF PRESENT ILLNESS: Mr. Andujar is a 56 year-old male who is being evaluated in the Clinic for problems with balance and tremulousness of both upper extremities. He has been referred to this Clinic by Dr. Valles from [place], [place], and has also previously undergone extensive evaluations in the Neurosurgical Clinic and at Vascular Surgery at [facility]. His most recent hospitalization to [facility] was December 28, 1996, when he underwent [...] evaluation in the Pain Management Clinic at [facility] and previous trials of Neurontin and mexiletine hydrochloride apparently appears to have been unsuccessful. Shortly following his December hospitalization at [facility], Mr. Andujar apparently became comatose in January from an accidental overdose of Darvon for which he was admitted to [facility] in [place], [place]. The details pertaining to this hospitalization are currently not available but as per Mr. Andujar, he was in a coma for a six day period and upon recovery noted tremulousness of both upper extremities, worse on his left than on his right. 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 Since his discharge from [facility], however, he has been experiencing increasing problems with balance and apparently has fallen on several occasions. The head CT-scan that was done at [facility], dated February 07, 1997, reveals a low attenuation area in the left anterior basal ganglia felt to represent a small lacunar infarct, with no other significant abnormality. Mr. Andujar states that during the course of his hospitalization at [facility] he apparently fell on three occasions sustaining occipital head trauma but did not undergo subsequent brain imaging studies. His stay at [facility] lasted two weeks. By his [...] Mr. Andujar specifically denies impairment of hand tube dispatcher, impaired strength in either upper extremity or [...] currently lives in a [facility] in [place], [place]. 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 He currently smokes one-half mnwt-qok-pcm since age 23. Denies current alcohol use [...] in turn led to his hospitalization at [facility] in January 1997 for coma [...] procedures for pain relief. Michelle Landon M.D. Overnight Cashier, Neurology GN:fermin C: 06/28/97 cc: RUBIA VALLES MD [address] [facility] [address] Alina Moise M.D. Professor and Wares Sorter, Division of Neurosurgery Robert Carlson M.D. Professor, Vascular Surgery documented in this encounter Plan of Treatment Not on filedocumented as of this encounter Visit Diagnoses Not on filedocumented in this encounter"
--- OUTSIDE RECORDS SUMMARY | ~2020-06-08 | XMS | Encounter Summary ---
Demographics + + + | Address | [address] | | | [place] [address] | + + + | Home Phone [...] Team Providers + +------+ + | Care On Site Property Manager Name | Role | Phone | [...] + + | 10/04/ | Documentati | [facility] | Simon, | Results (09/30/19) | | 2019 | on | NEPHROLOGY [place] | [facility] | | | | | [address] | Patient Financial Counselor | | | | | [address] | | | | | | [place] | | | | | | [address] | | | | | | [phone] | | | +--------+ + + + [...] | | | | | | [place] [address] | | | | | | [phone] | | | | | | | | +--------+ + + + + | 08/09/ | Virtual | Nephrology | Farrukh Acuna MD | | | 2019 | Office | | [address] [place] | | | | Visit | | [address] [place] | | | | | | [address] | | | | | | | [...]
--- OUTSIDE RECORDS SUMMARY | ~2020-06-08 | XMS | Encounter Summary ---
Demographics + + + | Address | [address] | | | [place] [address] | + + + | Home Phone [...] Team Providers + +------+ + | Care Crankshaft Grinder Name | Role | Phone | + +------+ + | Rahul Silva MD | PCP | | + +------+ + Encounter Details +--------+ + + + + | Date | Type | Department | Care Team | Description | +--------+ + + + + | 02/24/ | Orders Only | [facility] | Conversion | | | 2016 | | NEPHROLOGY [place] | Transaction, | | | | | [address] | Provider Unknown | | | | | [address] [place] | | | | | | [address] | (Fax) | | | | | [phone] | | | +--------+ + + + [...] | | | | | [place] [address] | | | | | | [phone] | | | | | | | | +--------+ + + + + | 08/09/ | Virtual | Nephrology | Farrukh Acuna MD | | | 2019 | Office | | [address] [facility] | | | | Visit | | [address] [place], [place] | | | | | | [address] | | | | | | | [...] - 1.030 | EXTERNAL | | | [place], | | | LAB | | | [...] + +---------+ + + External Lab: DUNIA (02/24/2017 8:07 AM PDT) + + + [...]
--- OUTSIDE RECORDS SUMMARY | ~2020-06-08 | XMS | Encounter Summary ---
Demographics + + + | Address | [address] | | | [place] [address] | + + + | Home Phone [...] Providers + +------+ + | Care Assembler Billiard Table Name | Role | Phone | + [...] + + | 09/17/ | Documentati | [facility] | Oly Alvarenga | Labs Only (interpath | | 2019 | on | NEPRHOLOGY [place] | V, Medical | 08/24/19) | | | | [address] | Time Lock Expert | | | | | [address] [place], [place] | | | | | | [address] | | | | | | [phone] | | | +--------+ + + + [...] | | | | | [address] [facility] | | | | | | [place] [address] | | | | | | [phone] | | | | | | | | +--------+ + + + + | 08/09/ | Virtual | Nephrology | Farrukh Acuna MD | | | 2019 | Office | | [address] [place] | | | | Visit | | [address] [place] | | | | | | [address] | | | | | | | [...] REFERENCE LAB | [address] | [place] | [phone] | | [facility] | | [address] | | + + + + + | REFERENCE LAB | [address] | [place] | [phone] | | [facility] | | [address] | | + + + + + documented in this encounter Visit Diagnoses Not on filedocumented in this encounter"
--- OUTSIDE RECORDS SUMMARY | ~2020-06-08 | XMS | Encounter Summary ---
Demographics + + + | Address | [address] | | | [place] [address] | + + + | Home Phone [...] Providers + +------+ + | Care Track Patrol Name | Role | Phone | + +------+ + | Rahul Silva MD | PCP | | + +------+ + Encounter Details +--------+ + + + + | Date | Type | Department | Care Team | Description | +--------+ + + + + | 10/08/ | Orders Only | [facility] | Farrukh Acuna MD | | | 2016 | | NEPHROLOGY [place] | [address] [place] | | | | | [address] [place] | [address] [place], [place] | | | | | [address] [place], [place] | [address] | | | | | [address] | | | | | | [phone] | | | +--------+ + + + [...] | | | | | [place] [address] | | | | | | [phone] | | | | | | | | +--------+ + + + + | 08/09/ | Virtual | Nephrology | Farrukh Acuna MD | | | 2019 | Office | | [address] [facility] | | | | Visit | | [address] [place], [place] | | | | | | [address] | | | | | | | [...]
--- OUTSIDE RECORDS SUMMARY | ~2020-06-08 | XMS | Encounter Summary ---
Demographics + + + | Address | [address] | | | [place] [address] | + + + | Home Phone [...] Providers + +------+ + | Care Wardrobe Consultant Name | Role | Phone | [...] [address] | | | | | [place], [place] | [place], [place] | | | | | [address] | [address] | | | | | [phone] | [phone] | | | | | | | [...] | | | | | [place] [address] | | | | | | [phone] | | | | | | | | +--------+ + + + + | 08/09/ | Virtual | Nephrology | Farrukh Acuna MD | | | 2020 | Office | | [address] [facility] [address] | | | | Visit | | [address] [place], [place] | | | | | | [address] | | | | | | | [...]
--- OUTSIDE RECORDS SUMMARY | ~2020-06-08 | XMS | Encounter Summary ---
Demographics + + + | Address | [address] | | | [place] [address] | + + + | Home Phone [...] Team Providers + +------+ + | Care Latex Dipper Name | Role | Phone | + +------+ + | Rahul Silva MD | PCP | | + +------+ + Encounter Details +--------+ + + + + | Date | Type | Department | Care Team | Description | +--------+ + + + + | 12/16/ | Orders Only | [facility] | Conversion | | | 2016 | | NEPHROLOGY [place] | Transaction, | | | | | [address] | Provider Unknown | | | | | [address] [place] | | | | | | [address] | (Fax) | | | | | [phone] | | | +--------+ + + + [...] | | | | | [place] [address] | | | | | | [phone] | | | | | | | | +--------+ + + + + | 08/09/ | Virtual | Nephrology | Farrukh Acuna MD | | | 2019 | Office | | [address] [facility] | | | | Visit | | [address] [place], [place] | | | | | | [address] | | | | | | | [...]
--- OUTSIDE RECORDS SUMMARY | ~2020-06-08 | XMS | Encounter Summary ---
Demographics + + + | Address | [address] | | | [place] [address] | + + + | Home Phone [...] Team Providers + +------+ + | Care Bond Trader Name | Role | Phone | + +------+ + | Rahul Silva MD | PCP | | + +------+ + Encounter Details +--------+ + + + + | Date | Type | Department | Care Team | Description | +--------+ + + + + | 07/14/ | Orders Only | [facility] | Farrukh Acuna MD | | | 2018 | | NEPRHOLOGY [place] | [address] | | | | | [address] | [address] [place], [place] | | | | | [address] [place], [place] | [address] | | | | | [address] | | | | | | [phone] | | | +--------+ + + + [...] | | | | | [place] [address] | | | | | | [phone] | | | | | | | | +--------+ + + + + | 08/09/ | Virtual | Nephrology | Farrukh Acuna MD | | | 2019 | Office | | [address] [facility] | | | | Visit | | [address] [place], [place] | | | | | | [address] | | | | | | | [...]
--- OUTSIDE RECORDS SUMMARY | ~2020-06-08 | XMS | Encounter Summary ---
Demographics + + + | Address | [address] | | | [place] [address] | + + + | Home Phone [...] Team Providers + +------+ + | Care Liaison Engineer Name | Role | Phone | [...] + + | 05/04/ | Refill | [facility] | Farrukh Acuna MD | Medication Refill | | 2020 | | NEPHROLOGY [place] | [address] | | | | | [address] | [address] [place], [place] | | | | | [address] | [address] | | | | | [place], [place] | | | | | | [address] | | | | | | [phone] | | | +--------+--------+ + + + [...] | | | | | | [facility] | | | | | | [place] [address] | | | | | | [phone] | | | | | | | | +--------+ + + + + | 08/09/ | Virtual | Nephrology | Farrukh Acuna MD | | | 2019 | Office | | [address] [facility] | | | | Visit | | [address] [place] | | | | | | [address] | | | | | | | | +--------+ + + + + documented as of this encounter Visit Diagnoses + + | Diagnosis | + + | Essential hypertension - Primary Unspecified essential hypertension | + + | Anemia of chronic kidney failure, stage 5 ([facility]) | + + | Persistent proteinuria Proteinuria | + + | CKD (chronic kidney disease) stage 5, GFR less than 15 ml/min ([facility]) Chronic kidney | | disease, Stage V | + + documented in this encounter"
--- OUTSIDE RECORDS SUMMARY | ~2020-06-08 | XMS | Encounter Summary ---
Demographics + + + | Address | [address] | | | [place] [address] | + + + | Home Phone [...] Providers + +------+ + | Care Spiral Machine Operator Name | Role | Phone [...] + + | 01/30/ | Documentati | [facility] | Simon, | Results (01/25/20) | | 2020 | on | NEPHROLOGY [place] | [facility] | | | | | [address] | Podiatric Aide | | | | | [address] [place], [place] | | | | | | [address] | | | | | | [phone] | | | +--------+ + + + [...] | | | | | [address] [facility] | | | | | | [place] [address] | | | | | | [phone] | | | | | | | | +--------+ + + + + | 08/09/ | Virtual | Nephrology | Farrukh Acuna MD | | | 2019 | Office | | [address] [place] | | | | Visit | | [address] [place] | | | | | | [address] | | | | | | | [...]
--- OUTSIDE RECORDS SUMMARY | ~2020-06-08 | XMS | Encounter Summary ---
Demographics + + + | Address | [address] | | | [place] [address] | + + + | Home Phone [...] Providers + +------+ + | Care Assistant Professor Of Archaeology Name | Role | Phone | + +------+ + | Rahul Silva MD | PCP | | + +------+ + Encounter Details +--------+ + + + + | Date | Type | Department | Care Team | Description | +--------+ + + + + | 12/06/ | Orders Only | [facility] | Farruhk Acuna MD | Essential | | 2020 | | NEPHROLOGY [place] | [address] | hypertension | | | | [address] | [address] [place], [place] | (Primary Dx); CKD | | | | [address] [place], [place] | [address] | (chronic kidney | | | | [address] | | disease) stage 5, | | | | [phone] | | GFR less than 15 | | | | | | ml/min ([facility]); Anemia | | | | [...] | | | | | | [facility] | | | | | | [place] [address] | | | | | | [phone] | | | | | | | | +--------+ + + + + | 08/09/ | Virtual | Nephrology | Farrukh Acuna MD | | | 2019 | Office | | [address] [facility] | | | | Visit | | [address] [place] | | | | | | [address] | | | | | | | [...] | | | | ml/min ([facility]) | | | | | [...] | | | | ml/min ([facility]) | | | | | [...] (HCC) | | | | | | Hypomagnesemia [...] | | | | ml/min ([facility]) Anemia | | | | | | of chronic kidney | | | | | | failure, stage 5 | | | | | | ([facility]) Persistent | | | | [...] | | | | ml/min ([facility]) Anemia | | | | | | of chronic kidney | | | | | | failure, stage 5 | | | | | | ([facility]) Persistent | | | | [...] | | | | ml/min ([facility]) | | | | | | Persistent | | | | | | proteinuria | | + +------+--------+ + + documented as of this encounter Visit Diagnoses + + | Diagnosis | + + | Essential hypertension - Primary Unspecified essential hypertension | + + | CKD (chronic kidney disease) stage 5, GFR less than 15 ml/min ([facility]) Chronic kidney | | disease, Stage V | + + | Anemia of chronic kidney failure, stage 5 (HCC) | + + | Hypomagnesemia Disorders of magnesium metabolism | + + | Persistent proteinuria Proteinuria | + + documented in this encounter"
--- OUTSIDE RECORDS SUMMARY | ~2020-06-08 | XMS | Encounter Summary ---
Demographics + + + | Address | [address] | | | [place] [address] | + + + | Home Phone [...] Team Providers + +------+ + | Care Cafeteria Manager Name | Role | Phone | [...] [address] | | | | | [place], [place] | [place], [place] | | | | | [address] | [address] | | | | | [phone] | [phone] | | | | | | | [...] | | | | | [place] [address] | | | | | | [phone] | | | | | | | | +--------+ + + + + | 08/09/ | Virtual | Nephrology | Farrukh Acuna MD | | | 2020 | Office | | [address] [facility] [address] | | | | Visit | | [address] [place], [place] | | | | | | [address] | | | | | | | [...]
--- OUTSIDE RECORDS SUMMARY | ~2020-06-08 | XMS | Encounter Summary ---
Demographics + + + | Address | [address] | | | [place] [address] | + + + | Home Phone [...] Providers + +------+ + | Care Radiator Mechanic Name | Role | Phone | [...] | | | stage 5, GFR | [address] | | | | | | less than | Phone: | | | | | | 15 ml/min | [phone] | | | | | | (HCC) | Fax: | | | | | | Procedures | [phone] | | | | | | VAS [...] + + | 10/20/ | Office | [facility] | Trisha Conner DNP | CKD (chronic kidney | | 2019 | Visit | VASCULAR SURGERY | [address] | disease) stage 5, | | | | [address] [place] | [place], [place] | GFR less than 15 | | | | [place], [place] | [address] | ml/min (HCC) | | | | [address] | | (Primary Dx); AVF | | | | [phone] | | (arteriovenous | | | | [...] Trisha Conner DNP - 10/20/2019 2:30 PM [facility] [address] [facility] [address] [address] Office: [phone] DATE OF VISIT: 10/20/2019 PATIENT NAME: Kavon Andujar : 1940; AGE: 79 y.o.; Sex:M PHONE NUMBER: ; ; PROVIDER: Trisha Conner DNP PRIMARY CARE / REFERRING PHYSICIAN: No ref. provider found / Rahul Silva MD / [address] [address] / [place] [address] REASON FOR EVALUATION / CHIEF COMPLAINT: Vascular Surgery Postoperative Visit for AVF creation The patient presents today for a Vascular Surgery Postoperative Visit. The patient is statu s post right brachiocephalic AVF creation, which was performed on 09/10/2019 at the [facility] Operating Room. The patient is not having any pain. The patient denie s fever, wound drainage, increasing redness, pus, increasing pain, increasing swelling. Phys ical examination revealed surgical incision is healed. He has good thrills over the AVF site . Patient's wood grainer is Dr. Acuna. The patient is not [...] | | | | | [address] [facility] | | | | | | [place] [address] | | | | | | [phone] | | | | | | | | +--------+ + + + + | 08/09/ | Virtual | Nephrology | Farrukh Acuna MD | | | 2019 | Office | | [address] [facility] | | | | Visit | | [address] [place], [place] | | | | | | [address] | | | | | | | [...] + + | Wiley, Meir Results In - 10/21/2019 8:21 AM PST [...]
--- OUTSIDE RECORDS SUMMARY | ~2020-06-08 | XMS | Encounter Summary ---
Demographics + + + | Address | [address] | | | [place] [address] | + + + | Home Phone [...] Providers + +------+ + | Care Artillery Maintenance Supervisor Name | Role | Phone | + +------+ + | Rhaul Silva MD | PCP | | + +------+ + Reason for Visit + +--------+ + | Reason | Onset | Comments | | | Date | | + +--------+ + | Advice Only | 09/23/ | | | | 2019 | | + +--------+ + Encounter Details +--------+ + + + + | Date | Type | Department | Care Team | Description | +--------+ + + + + | 09/23/ | Telephone | [facility] | Brian Orosco MD | Advice Only | | 2019 | | VASCULAR SURGERY | [address] | | | | | [address] [place] | [place], [place] | | | | | [place], [place] | [address] | | | | | [address] | [phone] | | | | | [phone] | | | +--------+ + + + [...] transfer the call to a rolf munoz storage architect was caller made aware that if at [...] | | | | | [place] [address] | | | | | | [phone] | | | | | | | | +--------+ + + + + | 08/09/ | Virtual | Nephrology | Farrukh Acuna MD | | | 2019 | Office | | [address] [facility] | | | | Visit | | [address] [place] [address] | | | | | | [address] | | | | | | | | +--------+ + + + + documented as of this encounter Visit Diagnoses Not on filedocumented in this encounter
--- OUTSIDE RECORDS SUMMARY | ~2020-06-08 | XMS | Encounter Summary ---
Demographics + + + | Address | [address] | | | [place] [address] | + + + | Home Phone [...] Team Providers + +------+ + | Care Checker/Stocker Name | Role | Phone | + [...] + + | 03/23/ | Documentati | [facility] | Simon, | Results (03/21/20) | | 2020 | on | NEPHROLOGY [place] | Trinidad [facility] | | | | | [address] | Reliability Engineer | | | | | [address] | | | | | | [place], [place] | | | | | | [address] | | | | | | [phone] | | | +--------+ + + + [...] | | | | | [place] [address] | | | | | | [phone] | | | | | | | | +--------+ + + + + | 08/09/ | Virtual | Nephrology | Farrukh Acuna MD | | | 2019 | Office | | [address] [place] | | | | Visit | | [address] [facility] [place] | | | | | | [address] | | | | | | | [...]
--- OUTSIDE RECORDS SUMMARY | ~2020-06-08 | XMS | Encounter Summary ---
Demographics + + + | Address | [address] | | | [place] [address] | + + + | Home Phone [...] Providers + +------+ + | Care Director Multiple Sclerosis Center Name | Role | Phone | + +------+ + | Rahul Silva MD | PCP | | + +------+ + Encounter Details +--------+ + + + + | Date | Type | Department | Care Team | Description | +--------+ + + + + | 01/11/ | Orders Only | [facility] | Farrukh Acuna MD | Essential | | 2020 | | NEPHROLOGY [place] | [address] [place] | hypertension | | | | [address] [place] | [address] [place], [place] | (Primary Dx); | | | | [address] [place], [place] | [address] | Persistent | | | | [address] | | proteinuria; Anemia | | | | [phone] | | of chronic kidney | | | | | | failure, stage 5 | | | | | | ([facility]); CKD (chronic | | | | | | kidney disease) | | | | | | stage 5, GFR less | | | | | | than 15 ml/min ([facility]) | +--------+ + + + + [...] | | | | | | [facility] | | | | | | [place] [address] | | | | | | [phone] | | | | | | | | +--------+ + + + + | 08/09/ | Virtual | Nephrology | Farrukh Acuna MD | | | 2019 | Office | | [address] [facility] | | | | Visit | | [address] [place] [address] | | | | | | [address] | | | | | | | [...]
--- OUTSIDE RECORDS SUMMARY | ~2020-06-08 | XMS | Encounter Summary ---
Demographics + + + | Address | [address] | | | [place] [address] | + + + | Home Phone [...] [place] | | | | | [address] | | + + + + + Care Team Providers + +------+ + | Care Shake Packer Name | Role | Phone | [...] [place]as | | | | | | [address] | | | | | | [place], [place] | | | | | | [address] | | | | | | [phone] | | | +--------+ + + + [...] of this encounter Progress Notes Interface, Digester Operator In - 01/22/2007 3:04 AM PST [address] [address] or June 07, 1997 Pravin VALLES MD [address] [facility] [address] RE:Kavon Andujar MR#:[id number] Valles: I saw Kavon Andujar in the Neurology Clinic today and have enclosed a copy of my note. 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 He [...] over the telephone. Sincerely, Michelle Landon M.D. Benefits Director, Neurology JINNY/ C: 06/13/97 cc: Alina Moise M.D. Division of Neurosurgery [facility] Robert Carlson M.D. Division of Vascular Surgery [facility] documented in this encounter Plan of Treatment Not on filedocumented as of this encounter Visit Diagnoses Not on filedocumented in this encounter
--- OUTSIDE RECORDS SUMMARY | ~2020-06-08 | XMS | Encounter Summary ---
Demographics + + + | Address | [address] | | | [place] [address] | + + + | Home Phone [...] Team Providers + +------+ + | Care Canvassing Manager Name | Role | Phone | [...] | | [address] | [address] [place], [place] | | | | | [address] | [address] | | | | | [place], [place] | | | | | | [address] | | | | | | [phone] | | | +--------+--------+ + + + [...] AM PDTReceived fax from Rosalee maynor in [place] requesting prescription for Torsemide. Torsemide prescription sent on 03/[address] [facility] to confirm they received electronic prescription. They received prescriptio n but were unable to fill it as it is too soon to fill. Their records show it was filled on 03/14. Appears that prescription was sent to both [facility] and [facility]. Called patient's daughter, Charlotte, and she reports they did knot picker cloth prescription for Torsem luly at [facility] pharmacy. His primary pharmacy is [facility] and he was only getting the Torse mide at [facility] because [facility] was out of Torsemide. She asked that [facility] pharmacy be re moved from [...] | | | | | [place] [address] | | | | | | [phone] | | | | | | | | +--------+ + + + + | 08/09/ | Virtual | Nephrology | Farrukh Acuna MD | | | 2019 | Office | | [address] [facility] | | | | Visit | | [address] [place] [address] | | | | | | [address] | | | | | | | [...]
--- OUTSIDE RECORDS SUMMARY | ~2020-06-08 | XMS | Encounter Summary ---
Demographics + + + | Address | [address] | | | [place] [address] | + + + | Home Phone [...] Team Providers + +------+ + | Care Registration Manager Name | Role | Phone | [...] + + | 12/02/ | Documentati | [facility] | Simon, | Results (11/29/19) | | 2020 | on | NEPHROLOGY [place] | Trinidad [facility] | | | | | [address] | Unmanned Aircraft Systems Roboticist | | | | | [address] [place], [place] | | | | | | [address] | | | | | | [phone] | | | +--------+ + + + [...] | | | | | | [place] [address] | | | | | | [phone] | | | | | | | | +--------+ + + + + | 08/09/ | Virtual | Nephrology | Farrukh Acuna MD | | | 2019 | Office | | [address] [place] | | | | Visit | | [address] [place] | | | | | | [address] | | | | | | | [...]
--- OUTSIDE RECORDS SUMMARY | ~2020-06-08 | XMS | Encounter Summary ---
Demographics + + + | Address | [address] | | | [place] [address] | + + + | Home Phone [...] Providers + +------+ + | Care Parachute Harness Rigger Name | Role | Phone | + [...] | | | [address] | [place] [address] | | | | | [place] [address] | | | | | | [phone] | | | +--------+ + + + [...] | | | | | [place] [address] | | | | | | [phone] | | | | | | | | +--------+ + + + + | 08/09/ | Virtual | Nephrology | Farrukh Acuna MD | | 2019 | Office | | [address] [facility] | | | | Visit | | [address] [place] | | | | | | [address] | | | | | | | [...]
--- OUTSIDE RECORDS SUMMARY | ~2020-06-08 | XMS | Encounter Summary ---
Demographics + + + | Address | [address] | | | [place] [address] | + + + | Home Phone [...] Team Providers + +------+ + | Care Hospitality Host Name | Role | Phone | [...] | | | [address] | [place] [address] | | | | | [place] [address] | | | | | | [phone] | | | +--------+ + + + [...] | | | | | | [facility] | | | | | | [place] [address] | | | | | | [phone] | | | | | | | | +--------+ + + + + | 08/09/ | Virtual | Nephrology | Farrukh Acuna MD | | | 2019 | Office | | [facility] | | | | Visit | | [address] [place], [place] | | | | | | [address] | | | | | | | [...]
--- OUTSIDE RECORDS SUMMARY | ~2020-06-08 | XMS | Encounter Summary ---
Demographics + + + | Address | [address] | | | [place] [address] | + + + | Home Phone [...] Team Providers + +------+ + | Care Ballast Regulator Operator Name | Role | Phone | [...] + + | 10/20/ | Telephone | [facility] | Simon, | Other (Tera F/U) | | 2018 | | NEPHROLOGY [place] | Trinidad [facility] | | | | | [address] | Fork Lift Technician | | | | | [facility] | | | | | | [place] | | | | | | [address] | | | | | | [phone] | | | +--------+ + + + [...] Miscellaneous Notes Telephone Encounter - Trinidad [place] Turbine Engineer - 10/20/2019 10:47 AM PSTCalkatty d to see if patient was scheduled for Aranesp. Per charlotte patient received injection "a coup le" days after his visit with Dr. Akoum this month. Patient is scheduled for the [...] | | | | [facility] | | | | | | [place] [address] | | | | | | [phone] | | | | | | | | +--------+ + + + + | 08/09/ | Virtual | Nephrology | Farrukh Acuna MD | | 2019 | Office | | [address] [facility] | | | | Visit | | [address] [place] | | | | | | [address] | | | | | | | | +--------+ + + + + documented as of this encounter Visit Diagnoses Not on filedocumented in this encounter
--- OUTSIDE RECORDS SUMMARY | ~2020-06-08 | XMS | Encounter Summary ---
Demographics + + + | Address | [address] | | | [place] [address] | + + + | Home Phone [...] Providers + +------+ + | Care Process Improvement Analyst Name | Role | Phone | [...] + | 08/25/ | Telephone | [facility] | Brian Orosco MD | New Patient (08/26 | | 2019 | | VASCULAR SURGERY | [address] | appointment) | | | | [address] [place] | [place], [place] | | | | | [place], [place] | [address] | | | | | [address] | [phone] | | | | | [phone] | | | +--------+ + + + [...] Miscellaneous Notes Telephone Encounter - Megan Blackwell Master Tax Advisor - 08/25/2019 2:08 PM PDTConfirmed appointment for tomorrow. Electronically signed by Megan Blackwell Master Tax Advisor at 08/25 2:09 PM PDTTelephone Encounter - Jo AnnRaulmukesh Salgado - 08/25/2019 1:21 PM Haritha, is calling regarding New Patient (08/26 appointment) and would like a call back. Additional Call Details: Caller states that they were not aware of the arrival time being at 10:50. States they had scheduled with the transport company to arrive at 11:00. Is wantin trixie to make sure that he will be okay to come at 11:00. Please call back to confirm, okay to l eave message. If this is a symptom based call, was patient offered triage? Not Applicable If this is a symptom based call and you were unable to immediately transfer the call to a rolf munoz parquet floor layer was caller made aware that if at [...] | | | | | [place] [address] | | | | | | [phone] | | | | | | | | +--------+ + + + + | 08/09/ | Virtual | Nephrology | Farrukh Acuna MD | | | 2019 | Office | | [address] [facility] | | | | Visit | | [address] [place] | | | | | | [address] | | | | | | | | +--------+ + + + + documented as of this encounter Visit Diagnoses Not on filedocumented in this encounter"
--- OUTSIDE RECORDS SUMMARY | ~2020-06-08 | XMS | Encounter Summary ---
Demographics + + + | Address | [address] | | | [place] [address] | + + + | Home Phone [...] Providers + +------+ + | Care Cost And Risk Analysis Manager Name | Role | Phone [...] + + | 04/06/ | Telephone | [facility] | Farrukh Acuna MD | Other (IV feraheme | | 2020 | | NEPHROLOGY [place] | [address] [place] | and aranesp | | | | [address] [place] | [address] [facility] [place] | question) | | | | [address] [facility], [place] | [id number] | | | | | [address] | | | | | | [phone] | | | +--------+ + + + [...] Miscellaneous Notes Telephone Encounter - Trinidad Simon Assistant Plant Control Operator - 04/06/2020 3:14 [address] A IV [...] | | | | | [place] [address] | | | | | | [phone] | | | | | | | | +--------+ + + + + | 08/09/ | Virtual | Nephrology | Farrukh Acuna MD | | 2019 | Office | | [address] [facility] | | | | Visit | | [address] [place], [place] | | | | | | [address] | | | | | | | | +--------+ + + + + documented as of this encounter Visit Diagnoses Not on filedocumented in this encounter"
--- OUTSIDE RECORDS SUMMARY | ~2020-06-08 | XMS | Encounter Summary ---
Demographics + + + | Address | [address] | | | [place] [address] | + + + | Home Phone [...] Providers + +------+ + | Care Field Support Rep Name | Role | Phone | + +------+ + | Rahul Silva MD | PCP | | + +------+ + Encounter Details +--------+ + + + + | Date | Type | Department | Care Team | Description | +--------+ + + + + | 10/28/ | Orders Only | [facility] | Conversion | | | 2016 | | NEPHROLOGY [place] | Transaction, | | | | | [address] | Provider Unknown | | | | | [address] [place] [address] | | | | | | [address] | (Fax) | | | | | [phone] | | | +--------+ + + + [...] | | | | | [place] [address] | | | | | | [phone] | | | | | | | | +--------+ + + + + | 08/09/ | Virtual | Nephrology | Farrukh Acuna MD | | | 2019 | Office | | [address] [facility] | | | | Visit | | [address] [place], [place] | | | | | | [address] | | | | | | | [...]
--- OUTSIDE RECORDS SUMMARY | ~2020-06-08 | XMS | Encounter Summary ---
Demographics + + + | Address | [address] | | | [place] [address] | + + + | Home Phone [...] [place] | | | | | [address] | | + + + + + Care Team Providers + +------+ + | Care Potato Chip Fryer Name | Role | Phone | + [...] [place]yas | | | | | | [address] | | | | | | [place], [place] | | | | | | [address] | | | | | | [phone] | | | +--------+ + + + [...] as of this encounter Progress Notes Interface, Wash Driller Helper In - 02/17/2007 3:02 AM PDT [address] [address] or August 05, 1996 RUBIA VALLES MD [address] [facility] [address] RE:PORFIRIO ZAVALA MR#:[id number] Valles: Mr. Porfirio Zavala returned to the [facility] Neurosurgery Clinic today for a followup visit. 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 Mr. Zavala has failed numerous femoral nerve blocks, sciatic nerve blocks, and spinal cord blocks, and was at one time enrolled in the [facility] Pain Clinic. Mr. Zavala's pain is currently [...] dictating for: Alina Moise M.D. Professor and Spray Gunner, Division of Neurosurgery MARYANA/sajan cc: Seven Khan, Ph.D. Clinical Psychologist-Neuropsychologist documented in this encounter Plan of Treatment Not on filedocumented as of this encounter Visit Diagnoses Not on filedocumented in this encounter"
--- OUTSIDE RECORDS SUMMARY | ~2020-06-08 | XMS | Encounter Summary ---
Demographics + + + | Address | [address] | | | [place] [address] | + + + | Home Phone [...] Team Providers + +------+ + | Care Airbrush Painter Name | Role | Phone | + +------+ + | Rahul Silva MD | PCP | | + +------+ + Encounter Details +--------+ + + + + | Date | Type | Department | Care Team | Description | +--------+ + + + + | 07/18/ | Orders Only | [facility] | Conversion | | | 2015 | | NEPHROLOGY [place] | Transaction, | | | | | [address] [facility] | Provider Unknown | | | | | [place] | [phone] | | | | | [address] | | | | | | [phone] | | | +--------+ + + + [...] | | | | | [facility] [facility] | | | | | | [place] [address] | | | | | | [phone] | | | | | | | | +--------+ + + + + | 08/09/ | Virtual | Nephrology | Farrukh Acuna MD | | 2019 | Office | | [address] [facility] | | | | Visit | | [address] [place] | | | | | | [address] | | | | | | | [...] - 1.030 | EXTERNAL | | | [place], | | | LAB | | | [...]
--- OUTSIDE RECORDS SUMMARY | ~2020-06-08 | XMS | Encounter Summary ---
Demographics + + + | Address | [address] | | | [place] [address] | + + + | Home Phone [...] Team Providers + +------+ + | Care Resin Painter Name | Role | Phone | [...] [place] | | | | | | [address] | | | | | | [phone] | | | +--------+--------+ + + + [...] They manually faxed re quest to the [place] office now and fax has been received. Spoke with the pharmacy graduate intern and provided updated location/fax numbers for our [facility], and [place] office. They had a file for Dr Acuna with 4 locations in [place], 2 locations in [place], [facility], [place], and [place]. They report they had faxed request to our office multiple times b ct could not provide the fax number that [...] | | | | | | [place] [address] | | | | | | [phone] | | | | | | | | +--------+ + + + + | 08/09/ | Virtual | Nephrology | Farrukh Acuna MD | | | 2020 | Office | | [address] [facility] | | | | Visit | | [address] [place] | | | | | | [address] | | | | | | | [...]
--- OUTSIDE RECORDS SUMMARY | ~2020-06-08 | XMS | Encounter Summary ---
Demographics + + + | Address | [address] | | | [place] [address] | + + + | Home Phone [...] [place] | | | | | [place], [place] | [place], [place] | | | | | [address] | [address] | | | | | [phone] | [phone] | | | | | | | [...] | | | | | [place] [address] | | | | | | [phone] | | | | | | | | +--------+ + + + + | 08/09/ | Virtual | Nephrology | Farrukh Acuna MD | | | 2020 | Office | | [address] [facility] [place] | | | | Visit | | [address] [place], [place] | | | | | | [address] | | | | | | | [...]
--- OUTSIDE RECORDS SUMMARY | ~2020-06-08 | XMS | Encounter Summary ---
Demographics + + + | Address | [address] | | | [place] [address] | + + + | Home Phone [...] [place] | | | | | [address] | | + + + + + Care Team Providers + +------+ + | Care Chain Saw Mechanic Name | Role | Phone | [...] | | | | | | [address] | | | | | | [place], [place] | | | | | | [address] | | | | | | [phone] | | | +--------+ + + + [...] as of this encounter Progress Notes Interface, Guard Manager In - 02/14/2007 3:12 AM PDT [address] [address] or September 09, 1996 Nestor VALLES MD [address] [place] [address] RE: PORFIRIO ZAVALA MR#: [id number] Valles: Your patient, Porfirio Zavala, was seen for follow up today in the Neurosurgery Clinic at [facility]. As you recall, he is a vfxia-tul-fckg-old man with stump pain and phantom limb pain secondary to a left xusge-xag-yeoz amputation. Following our initial evaluation, we recommended [...] Fellow, Neurosurgery Alina Moise M.D. Professor and Cooker Tender, Division of Neurosurgery HECTOR/hiro documented in this encounter Plan of Treatment Not on filedocumented as of this encounter Visit Diagnoses Not on filedocumented in this encounter"
--- OUTSIDE RECORDS SUMMARY | ~2020-06-08 | XMS | Encounter Summary ---
Demographics + + + | Address | [address] | | | [place] [address] | + + + | Home Phone [...] Providers + +------+ + | Care Air Duct Mechanic Name | Role | Phone | + +------+ + | Rahul Silva MD | PCP | | + +------+ + Encounter Details +--------+---------+ + + + | Date | Type | Department | Care Team | Description | +--------+---------+ + + + | 01/10/ | Office | [facility] | Farrukh Acuna MD | CKD (chronic kidney | | 2020 | Visit | NEPHROLOGY [place] | [address] [place] | disease) stage 5, | | | | [address] | [address] [place], [place] | GFR less than 15 | | | | [address] | [address] | ml/min (HCC) | | | | [place], [place] | | (Primary Dx); Anemia | | | | [address] | | of chronic kidney | | | | [phone] | | failure, stage 5 | | [...] 10/2016 with severe pneumonia, severe ZEKE; needed TELEPHONE LINEMAN for ~5 weeks b efore renal function recovery mid 12/2016. He was admitted to [facility] for 3 nights in July 2016 for [...] 10/2016 with severe pneumonia, severe ZEKE; needed TELEPHONE LINEMAN for ~5 weeks b efore renal function [...] Also: I see no need for acute TELEPHONE LINEMAN. I see no need to send him [...] | | | | | | [facility] | | | | | | [place] [address] | | | | | | [phone] | | | | | | | | +--------+ + + + + | 08/09/ | Virtual | Nephrology | Farrukh Acuna MD | | | 2019 | Office | | [address] [facility] | | | | Visit | | [address] [place] | | | | | | [address] | | | | | | | | +--------+ + + + + documented as of this encounter Visit Diagnoses + + | Diagnosis | + + | CKD (chronic kidney disease) stage 5, GFR less than 15 ml/min ([facility]) - Primary Chronic | | kidney disease, Stage V | + + | Anemia of chronic kidney failure, stage 5 ([facility]) | + + | Edema of [...]
--- OUTSIDE RECORDS SUMMARY | ~2020-06-08 | XMS | Encounter Summary ---
Demographics + + + | Address | [address] | | | [place] [address] | + + + | Home Phone [...] Providers + +------+ + | Care Solar Technician Name | Role | Phone | + +------+ + | Rahul Silva MD | PCP | | + +------+ + Encounter Details +--------+ + + + + | Date | Type | Department | Care Team | Description | +--------+ + + + + | 10/05/ | Orders Only | [facility] | Farrukh Acuna MD | Essential | | 2019 | | NEPHROLOGY [place] | [address] [place] | hypertension | | | | [address] | [address] [facility], [place] | (Primary Dx); Iron | | | | [address] | [address] | deficiency; | | | | [place], [place] | | Secondary | | | | [address] | | hyperparathyroidism | | | | [phone] | | (HCC); CKD (chronic | | | | | | kidney disease) | | | | | | stage 5, GFR less | | | | | | than 15 ml/min ([facility]) | +--------+ + + + + Social [...] [place] | | | | | | [place] [address] | | | | | | [phone] | | | | | | | | +--------+ + + + + | 08/09/ | Virtual | Nephrology | Farrukh Acuna MD | | | 2019 | Office | | [address] [place] | | | | Visit | | [address] [place] | | | | | | [address] | | | | | | | [...]
--- OUTSIDE RECORDS SUMMARY | ~2020-06-08 | XMS | Encounter Summary ---
Demographics + + + | Address | [address] | | | [place] [address] | + + + | Home Phone [...] + | 07/20/ | Orders Only | [facility] | Farrukh Acuna MD | Stage 4 chronic | | 2019 | | NEPHROLOGY [place] | [address] [place] | kidney disease (HCC) | | | | [address] | [address] [place], [place] | (Primary Dx); | | | | [address] | [address] | Persistent | | | | [place], [place] | | proteinuria; | | | | [address] | | Secondary | | | | [phone] | | hyperparathyroidism | | | | [...] | | | | | [place] [address] | | | | | | [phone] | | | | | | | | +--------+ + + + + | 08/09/ | Virtual | Nephrology | Farrukh Acuna MD | | | 2019 | Office | | [address] [facility] [place] | | | | Visit | | [facility] | | | | | | [address] | | | | | | | [...]
--- OUTSIDE RECORDS SUMMARY | ~2020-06-08 | XMS | Encounter Summary ---
Demographics + + + | Address | [address] | | | [place] [address] | + + + | Home Phone [...] Providers + +------+ + | Care Aviation Tactical Readiness Officer Name | Role | Phone | [...] Dale [place]LLANO | | | | | [address] | [place] [address] | | | | | [place] [address] | | | | | | [phone] | | | +--------+ + + + [...] | | | | | [place] [address] | | | | | | [phone] | | | | | | | | +--------+ + + + + | 08/09/ | Virtual | Nephrology | Farrukh Acuna MD | | 2019 | Office | | [address] [facility] | | | | Visit | | [address] [place] | | | | | | [address] | | | | | | | [...]
--- OUTSIDE RECORDS SUMMARY | ~2020-06-08 | XMS | Encounter Summary ---
Demographics + + + | Address | [address] | | | [place] [address] | + + + | Home Phone [...] Team Providers + +------+ + | Care Waterway Traffic Checker Name | Role | Phone | [...] + + | 03/29/ | Documentati | [facility] | Alfred, | Other (IV fercesilia | | 2020 | on | NEPHROLOGY [place] | Charlie Abdi | order sent to [facility] | | | | [address] | Gis Engineer | IVT confirmation | | | | [address] | | received) | | | | [place], [place] | | | | | | [address] | | | | | | [phone] | | | +--------+ + + + [...] | | | | MARIA VICTORIA [facility] | | | | | | [place] [address] | | | | | | [phone] | | | | | | | | +--------+ + + + + | 08/09/ | Virtual | Nephrology | Farrukh Acuna MD | | | 2019 | Office | | [address] [facility] | | | | Visit | | [address] [place] | | | | | | [address] | | | | | | | | +--------+ + + + + documented as of this encounter Visit Diagnoses Not on filedocumented in this encounter"
--- OUTSIDE RECORDS SUMMARY | ~2020-06-08 | XMS | Encounter Summary ---
Demographics + + + | Address | [address] | | | [place] [address] | + + + | Home Phone [...] Providers + +------+ + | Care Junior Accounting Clerk Name | Role | Phone | + +------+ + | Rahul Silva MD | PCP | | + +------+ + Encounter Details +--------+ + + + + | Date | Type | Department | Care Team | Description | +--------+ + + + + | 11/10/ | Orders Only | [facility] | Farrukh Acuna MD | | | 2017 | | NEPHROLOGY [place] | [address] [place] | | | | | [address] [place] | [address] [place], [place] | | | | | [address] [place], [place] | [address] | | | | | [address] | | | | | | [phone] | | | +--------+ + + + [...] | | | | | [place] [address] | | | | | | [phone] | | | | | | | | +--------+ + + + + | 08/09/ | Virtual | Nephrology | Farrukh Acuna MD | | | 2019 | Office | | [address] [facility] | | | | Visit | | [address] [place], [place] | | | | | | [address] | | | | | | | [...] | | | LAB | | | STATELESS | | | | | + + [...]
--- OUTSIDE RECORDS SUMMARY | ~2020-06-08 | XMS | Encounter Summary ---
Demographics + + + | Address | [address] | | | [place] [address] | + + + | Home Phone [...] [place] | | | | | [address] | | + + + + + Care Team Providers + +------+ + | Care Sound Engineering Technician Name | Role | Phone [...] [id number] | | | | | | [place], [place] | | | | | | [address] | | | | | | [phone] | | | +--------+ + + + [...] + + + + | [facility] | [address] | [place] [address] | | | PATHOLOGY | [address] [...] + + + + | [facility] | [address] | [place] [address] | | | PATHOLOGY | [address] | | | + + + + + documented in this encounter Visit Diagnoses Not on filedocumented in this encounter"
--- OUTSIDE RECORDS SUMMARY | 2020-06-08 06:46 | XMS ---
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 Care History Medical/Surgical 05/17/2020 [facility] Called PCP office to verify respiratory medication regimine. Patient has been prescribed DANA\T\#39;s in MDI and nebulizor form and triple therapy for mantanence inhaled medication. Patient\T\#39;s pharmacy history indicates that he is filling his inhaled medications. Will call patient\T\#39;s home health care worker to offer inhaler training. 11/10/2019 [facility] - PLEASE MAKE SURE- ALL RECORDS ARE SENT TO DR ACUNA-PATIENT STAFF TRAINER IN [place]. 05/28/2018 [facility] - Patient currently sees angiographer Dr Acuna and patient has last seen [...] ED please contact Community Health WorkerLizzy at [phone]. These are guidelines and the provider should exercise clinical judgment when providing care. E.D. VISIT COUNT (12 MO.) 9 [facility]. TOTAL 9 NOTE: Visits indicate total known visits. ED/UCC VISIT TRACKING (12 MO.) 06/08/2020 06:43 [facility] TYPE: Emergency COMPLAINT: - WEAKNESS, ABD PAIN 05/16/2020 14:42 [facility] TYPE: Emergency COMPLAINT: - CHEST PAIN DIAGNOSES: - Chronic obstructive pulmonary disease, unspecified - Other skilled nursing (current) drug therapy - Allergy status to other drugs, medicaments and biological sub - long-term (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 of insulin - Chest pain, unspecified - Personal history of nicotine dependence - Chronic kidney disease, stage 4 (severe) - Type 2 diabetes mellitus with diabetic chronic kidney disease - Heart failure, unspecified - Hypertensive heart and chronic kidney disease with heart fail 05/11/2020 17:15 [facility] [place] TYPE: Emergency COMPLAINT: - SOB, WEAK, HIGH PULSE RATE DIAGNOSES: - long-term (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 of insulin - Heart failure, unspecified - long-term (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 of aspirin - Allergy status to other drugs, medicaments and biological sub - Weakness - Chronic kidney disease, stage 4 (severe) - Hypertensive heart and chronic kidney disease with heart fail - Chronic obstructive pulmonary disease, unspecified - Nicotine dependence, unspecified, uncomplicated - Other longwall machine operator helper (current) drug therapy - Type 2 diabetes [...] - Nicotine dependence, unspecified, uncomplicated - Other skilled nursing (current) drug therapy - Chest pain, unspecified [...] with diabetic chronic kidney disease - Other skilled nursing (current) drug therapy - Chronic obstructive pulmonary disease, unspecified - Personal history of nicotine dependence 11/04/2019 13:11 [facility] TYPE: Emergency COMPLAINT: - MEMORY PROBLEM DIAGNOSES: - Heart failure, unspecified - Allergy status to other drugs, medicaments and biological sub - Anemia in chronic kidney disease - Other longwall machine operator helper (current) drug therapy - Personal history of nicotine dependence - Hypertensive heart and chronic kidney disease with heart fail - Chronic kidney disease, stage 4 (severe) - long-term (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 of insulin - Acute kidney failure, unspecified - Dependence on other enabling machines and devices - Vascular dementia without behavioral disturbance - long-term (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 of anticoagulants - long-term (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 of aspirin - Type 2 [...] nicotine dependence - Chest pain, unspecified - long-term (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 of aspirin - Personal history of transient ischemic attack (TIA), and cere - long-term (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 of insulin - Hypomagnesemia - Hypertensive heart and chronic kidney disease with heart fail - Chronic kidney disease, stage 4 (severe) - Other longwall machine operator helper (current) drug therapy 09/27/2019 12:22 [facility] TYPE: Emergency COMPLAINT: - SOB INPATIENT VISIT TRACKING (12 MO.) 09/27/2019 16:43 [facility] TYPE: Medical Surgical COMPLAINT: - PNA DIAGNOSES: - Adverse effect of other opioids, initial encounter - long-term (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 of antithrombotics/antiplatelets - Anemia in chronic kidney disease - Acquired absence of left leg above knee - 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 classified elsewh - Nicotine dependence, unspecified, uncomplicated - Panlobular emphysema - Panlobular emphysema - Type 2 diabetes mellitus with diabetic chronic kidney disease - long-term (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 of insulin - Allergy status to other drugs, medicaments and biological sub - Opioid dependence, uncomplicated - Other skilled nursing (current) drug therapy - Nicotine dependence, unspecified, uncomplicated - Pneumonia due to Streptococcus pneumoniae - Chronic pain syndrome - Dependence on wheelchair - long term care pharmacist (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 of insulin - Acquired absence [...] Hyperlipidemia, unspecified - Drug induced constipation - long term care pharmacist (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 of aspirin - Anemia in chronic kidney disease - 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
--- NOTE | 2020-06-10 09:09 | EKG ---
[facility] [address] [facility] [place] [address] Signed Sinus rhythm with premature atrial complexes Otherwise normal ECG When compared with ECG of 16-MAY-2020 14:46, No significant change was found Confirmed by SAHIL GAMEZ MD ([id number]) on 06/10/2020 9:09:28 AM Electronically Signed By: SAHIL GAMEZ MD 06/10/20908 PATIENT NAME: LUCASPORFIRIOTONIA CHACON Electrocardiogram DATE OF : 40 PHYSICIAN: SAHIL GAMEZ MD REPORT #: [id number] REPORT IS CONFIDENTIAL AND NOT TO BE RELEASED WITHOUT AUTHORIZATION
== END 2020-06-08 10:24 | disposition home or self-care (01) ==
LOC: ED 06:43
DX: K59.00 Constipation, unspecified (principal); K21.9 Gastro-esophageal reflux disease without esophagitis; J44.9 Chronic obstructive pulmonary disease, unspecified; E11.22 Type 2 diabetes mellitus with diabetic chronic kidney disease; I13.0 Hypertensive heart and chronic kidney disease with heart failure and stage 1 through stage 4 chronic kidney disease, or unspecified chronic kidney disease; N18.4 Chronic kidney disease, stage 4 (severe); I50.9 Heart failure, unspecified; F17.200 Nicotine dependence, unspecified, uncomplicated; Z88.8 Allergy status to other drugs, medicaments and biological substances; Z79.4 Long term (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 of insulin; Z79.899 Other long term (current) drug therapy
CPT/HCPCS: 71045; 74018; 80053; 81001; 83735; 84484; 85025; 93005; 93010; 99285-25

== ENCOUNTER 2020-08-15 13:19 | Emergency (ER) | payer MEDICARE, OTHER ==
[~2020-08-15] VITALS: Ht 172.7 cm; Wt 74.8 kg
--- OUTSIDE RECORDS SUMMARY | ~2020-08-15 | XMS | Encounter Summary ---
Demographics + + + | Address | [address] | | | [place] [address] | + + + | Home Phone | | + + + | Preferred Language | Unknown | + + + | Marital Status | | + + + | Yazdanism Affiliation | 1077 | + + + | Race | White | + + + | Ethnic Group | Not or | + + + Author + + + | Author | [facility] | | | and [place] | + + + | Organization | [facility] | | | [...] Team Providers + +------+ + | Care Senior Escrow Officer Name | Role | Phone | + +------+ + | Mehrdad Bergman | PCP | | + +------+ + Reason for Visit +--------+ + | Reason | Comments | +--------+ + | Other | IV feraheme order and new procrit order sent to [facility] | | | confirmation received 07/28 | +--------+ + Encounter Details +--------+ + + + + | Date | Type | Department | Care Team | Description | +--------+ + + + + | 08/01/ | Documentati | [facility] | Alfred, | Other (IV fersonyaeme | | 2020 | on | NEPHROLOGY [place] | [facility] | order and new | | | | [address] [place] | Animation Producer | procrit order sent | | | | [address] [place], [place] | | to [facility] | | | | [address] | | confirmation | | | | [phone] | | received 07/28) | +--------+ + + + + Social History + +-------+ +--------+ + | Tobacco Use | Types | Packs/Day | Years | Date | | | | | Used | | + +-------+ +--------+ + | Current Every Day | | 0.25 | 59 | Quit: 09/27/2019 | | Smoker | | | | | + +-------+ +--------+ + + +------+---+---+ | Smokeless Tobacco: | Chew | | | | Never Used | | | | + +------+---+---+ + + +---------+ + | Alcohol Use [...] 2019 | Office | | [address] [facility] | | | | Visit | | [address] [place] | | | | | | [address] | | | | | | | | +--------+ + + + + documented as of this encounter Visit Diagnoses Not on filedocumented in this encounter"
--- OUTSIDE RECORDS SUMMARY | ~2020-08-15 | XMS | Encounter Summary ---
Demographics + + + | Address | [address] | | | [place] [address] | + + + | Home Phone | | + + + | Preferred Language | Unknown | + + + | Marital Status | | + + + | Methodist Affiliation | 1077 | + + + | Race | White | + + + | Ethnic Group | Not or | + + + Author + + + | Author | [facility] | | | and [place] | + + + | Organization | [facility] | | | [...] Team Providers + +------+ + | Care Bevel Gear Generator Operator Name | Role | Phone | + +------+ + | Rahul Silva MD | PCP | | + +------+ + Encounter Details +--------+ + + + + | Date | Type | Department | Care Team | Description | +--------+ + + + + | 12/06/ | Orders Only | [facility] | Farrukh Acuna MD | Essential | | 2020 | | NEPHROLOGY [place] | [address] [place] | hypertension | | | | [address] [place] | [address] [place], [place] | (Primary Dx); CKD | | | | [address] [place], [place] | [address] | (chronic kidney | | | | [address] | | disease) stage 5, | | | | [phone] | | GFR less than 15 | | | | | | ml/min (HCC); Anemia | | | | | | of chronic kidney | | | | | | failure, stage 5 | | | | | | (HCC); | | | | | | Hypomagnesemia; | | | | | | Persistent | | | | | | proteinuria | +--------+ + + + + Social [...] 2019 | Office | | [address] [facility] [place] | | | | Visit | | [address] [place] | | | | | | [address] | | | | | | | | +--------+ + + + + + +------+--------+ + + | Name | Type | Priori | Associated Diagnoses | Order Schedule | | | | ty | | | + +------+--------+ + + | Basic Metabolic | Lab | Routin | Essential | every 14 days for 2 | | Panel | | e | hypertension CKD | Occurrences starting | | | | | (chronic kidney | 12/17/2019 until | | | | | disease) stage 5, | 12/17/2020 | | | | | GFR less than 15 | | | | | | ml/min ([facility]) | | | | | | Persistent | | | | | | proteinuria | | + +------+--------+ + + | CBC with | Lab | Routin | Essential | every 14 days for 2 | | Differential | | e | hypertension CKD | Occurrences starting | | | | | (chronic kidney | 12/17/2019 until | | | | | disease) stage 5, | 12/17/2020 | | | | | GFR less than 15 | | | | | | ml/min ([facility]) | | | | | | Persistent | | | | | | proteinuria | | + +------+--------+ + + | Renal Function Panel | Lab | Routin | Essential | Expected: | | | | e | hypertension CKD | 12/27/2019, Expires: | | | | | (chronic kidney | 12/17/2020 | | | | | disease) stage 5, | | | | | | GFR less than 15 | | | | | | ml/min ([facility]) | | | | | | Persistent | | | | | | proteinuria | | + +------+--------+ + + | CBC with | Lab | Routin | Essential | Expected: | | Differential | | e | hypertension CKD | 12/27/2019, Expires: | | | | | (chronic kidney | 12/17/2020 | | | | | disease) stage 5, | | | | | | GFR less than 15 | | | | | | ml/min ([facility]) | | | | | | Persistent | | | | | | proteinuria | | + +------+--------+ + + | Magnesium | Lab | Routin | Essential | Expected: | | | | e | hypertension CKD | 12/27/2019, Expires: | | | | | (chronic kidney | 12/17/2020 | | | | | disease) stage 5, | | | | | | GFR less than 15 | | | | | | ml/min ([facility]) | | | | | | Hypomagnesemia | | | | | | Persistent | | | | | | proteinuria | | + +------+--------+ + + | Iron and Iron | Lab | Routin | Essential | Expected: | | Binding Capacity | | e | hypertension CKD | 12/27/2019, Expires: | | | | | (chronic kidney | 12/17/2020 | | | | | disease) stage 5, | | | | | | GFR less than 15 | | | | | | ml/min (HCC) Anemia | | | | | | of chronic kidney | | | | | | failure, stage 5 | | | | | | ([facility]) Persistent | | | | | | proteinuria | | + +------+--------+ + + | Ferritin | Lab | Routin | Essential | Expected: | | | | e | hypertension CKD | 12/27/2019, Expires: | | | | | (chronic kidney | 12/17/2020 | | | | | disease) stage 5, | | | | | | GFR less than 15 | | | | | | ml/min ([facility]) Anemia | | | | | | of chronic kidney | | | | | | failure, stage 5 | | | | | | ([facility]) Persistent | | | | | | proteinuria | | + +------+--------+ + + | Parathyroid Hormone, | Lab | Routin | Essential | Expected: | | Intact | | e | hypertension CKD | 12/27/2019, Expires: | | | | | (chronic kidney | 12/17/2020 | | | | | disease) stage 5, | | | | | | GFR less than 15 | | | | | | ml/min ([facility]) | | | | | | Persistent | | | | | | proteinuria | | + +------+--------+ + + documented as of this encounter Visit Diagnoses + + | Diagnosis | + + | Essential hypertension - Primary Unspecified essential hypertension | + + | CKD (chronic kidney disease) stage 5, GFR less than 15 ml/min (HCC) Chronic kidney | | disease, Stage V | + + | Anemia of chronic kidney failure, stage 5 (HCC) | + + | Hypomagnesemia Disorders of magnesium metabolism | + + | Persistent proteinuria Proteinuria | + + documented in this encounter"
--- OUTSIDE RECORDS SUMMARY | ~2020-08-15 | XMS | Encounter Summary ---
Demographics + + + | Address | [address] | | | [place] [address] | + + + | Home Phone | | + + + | Preferred Language | Unknown | + + + | Marital Status | | + + + | Episcopal Affiliation | 1077 | + + + | Race | White | + + + | Ethnic Group | Not or | + + + Author + + + | Author | [facility] | | | and [place] | + + + | Organization | [facility] | | | and [...] Team Providers + +------+ + | Care Bump Grader Operator Name | Role | Phone | + +------+ + | Rahul Silva MD | PCP | | + +------+ + Encounter Details +--------+ + + + + | Date | Type | Department | Care Team | Description | +--------+ + + + + | 06/12/ | Orders Only | [facility] | Farrukh Acuna MD | | | 2017 | | NEPHROLOGY [place] | [address] [place] | | | | | [address] [place] | [address] [place], [place] | | | | | [address] [place], [place] | [address] | | | | | [address] | | | | | | [phone] | | | +--------+ + + + [...] 2020 | Office | | [address] [facility] | | | | Visit | | [address] [place], [place] | | | | | | [address] | | | | | | | | +--------+ + + + + documented as of this encounter Procedures + +--------+ + + + | Procedure Name | Priori | Date/Time | Associated Diagnosis | Comments | | | ty | | | | + +--------+ + + + | BASIC METABOLIC | Routin | 06/12/2017 | | Results for this | | PANEL | e | 3:00 PM | | procedure are in the | | | | PDT | | results section. | + +--------+ + + + documented in this encounter Results Basic Metabolic Panel (06/12/2017 3:00 PM PDT) + + + + + + | Component | Value | Ref Range | Performed | Pathologist | | | | | At | Signature | + + + + + + | Glucose, | 198 (A) | 70 - 100 mg/dL | EXTERNAL | | | Fasting | | | LAB | | + + + + + + | BUN | 27 (A) | 6 - 23 mg/dL | EXTERNAL | | | | | | LAB | | + + + + + + | Creatinine | 1.79 (A) | 0.70 - 1.18 | EXTERNAL | | | | | mg/dL | LAB | | + + + + + + | BUN/Creatin | 15.1 | 6.0 - 28.6 | EXTERNAL | | | ine Ratio | | | LAB | | + + + + + + | Calcium | 8.0 (A) | 8.4 - 10.2 | EXTERNAL | | | | | mg/dL | LAB | | + + + + + + | Na | 142 | 132 - 143 | EXTERNAL | | | | | mmol/L | LAB | | + + + + + + | K | 3.9 | 3.6 - 5.1 | EXTERNAL | | | | | mmol/L | LAB | | + + + + + + | Cl | 109 | 95 - 112 mmol/L | EXTERNAL | | | | | | LAB | | + + + + + + | CO2 | 22 | 19 - 31 mmol/L | EXTERNAL | | | | | | LAB | | + + + + + + | Anion Gap | 14.9 | 7 - 21 mmol/L | EXTERNAL | | | | | | LAB | | + + + + + + | Estimated | 37 | mg/dL | EXTERNAL | | | [...]
--- OUTSIDE RECORDS SUMMARY | ~2020-08-15 | XMS | Encounter Summary ---
Demographics + + + | Address | [address] | | | [place] [address] | + + + | Home Phone | | + + + | Preferred Language | Unknown | + + + | Marital Status | | + + + | Sabianist Affiliation | 1077 | + + + | Race | White | + + + | Ethnic Group | Not or | + + + Author + + + | Author | [facility] | | | and [place] | + + + | Organization | [facility] | | | [...] Team Providers + +------+ + | Care External Relations Director Name | Role | Phone | + +------+ + PCP | Unavailable | + +------+ + Encounter Details +--------+ + + + + | Date | Type | Department | Care Team | Description | +--------+ + + + + | 07/18/ | [facility] | [facility] | Nelson Lutz MD | | | 2002 | Encounter | MED CTR GENERIC OP | [address], [place] | | | | | CONV DEPT [address] | [address] | | | | | [place], | [address] | | | | | [place] [address] | | | | | | [phone] | | | +--------+ + + + [...] 2019 | Office | | [address] [facility] | | | | Visit | | [address] [place] | | | | | | [address] | | | | | | | | +--------+ + + + + documented as of this encounter Visit Diagnoses Not on filedocumented in this encounter"
--- OUTSIDE RECORDS SUMMARY | ~2020-08-15 | XMS | Encounter Summary ---
Demographics + + + | Address | [address] | | | [place] [address] | + + + | Home Phone | | + + + | Preferred Language | Unknown | + + + | Marital Status | | + + + | Yarsani Affiliation | 1077 | + + + | Race | White | + + + | Ethnic Group | Not or | + + + Author + + + | Author | [facility] | | | and [place] | + + + | Organization | [facility] | | [...] Team Providers + +------+ + | Care Stretching Press Operator Name | Role | Phone | + +------+ + | Rahul Silva MD | PCP | | + +------+ + Reason for Visit + +--------+ + | Reason | Onset | Comments | | | Date | | + +--------+ + | Lab Results | 09/03/ | | | | 2019 | | + +--------+ + Encounter Details +--------+ + + + + | Date | Type | Department | Care Team | Description | +--------+ + + + + | 09/03/ | Telephone | [facility] | Simon, | Lab Results | | 2019 | | NEPHROLOGY [place] | [facility] | | | | | [address] | Pacs Specialist | | | | | [address] [place] [place] | | | | | | [address] | | | | | | [phone] | | | +--------+ + + + [...] encounter Miscellaneous Notes Telephone Encounter - Trinidad Simon, Regional Coordinator - 09/03/2019 12:57 PM PDTSpoke to patient in regards to lab results. She verbalized understanding, I did not have the [facility] copy of the labs but I had them pulled up on [facility]. She insisted on knowing the results and I compared 08/09 results with the 08/24. I informed her that the patients GFR had come u p and the creatinine had comedown. Patient was upset that she was not called and I explained to her that Dr. Acuna doesn't call unless there is something wrong with the patients labs. She verbalized understanding and had no further questions. I called Charlotte again this afternoon and asked if she had additional questions in regards t o the labs we went over yesterday. She stated that she didn't know that the results had been faxed. I again informed her that I had pulled up the labs on [facility] website. I went ov er the labs with her again and she verbalized understanding and was not upset at all during the call. She was just frustrated with the lab not faxing results to providers. The misunder standing with our office has been resolved. She had no further questions at this time.Electr onically signed by Trinidad Simon Regional Coordinator at 09/03/2019 4:26 PM PDTTelephone Encounter - Trinidad Simon Medical Assistant - 09/03/2019 12:57 PM PDT----- Message f dahlia Mcnulty sent at 09/03/2019 12:01 PDT ----- Regarding: labs Contact: Provider: Armand patient and daughter called and was asking for test result from the last several times that Kavon had his labs completed. Patient and his daughter has put in a formal complaint to [facility], since they feel we are not getting patients test results in a timely manner and would like to know by the end of today what the results have been. Even a courtesy phone call would be nice. Please call them back at [phone]. Detailed message may be left on phone: Yes Next OV: 10/04/19 If this is a symptom based call and you were unable to immediately transfer the call to [facility] staff, was caller made aware that if at any timehefeels it is an emergency they should call 911 or go to the nearest emergency room? Yes Is battery charger conveyor line needed: no do cumented in this encounter Plan of Treatment +--------+ + + + + | Date | Type | Specialty | Care Team | Description | +--------+ + + + + | 10/30/ | Virtual | Nephrology | Farrukh Acuna MD | | | 2019 | Office | | [address] [facility] | | | | Visit | | [address] [place] | | | | | | [address] | | | | | | | | +--------+ + + + + documented as of this encounter Visit Diagnoses Not on filedocumented in this encounter"
--- OUTSIDE RECORDS SUMMARY | ~2020-08-15 | XMS | Encounter Summary ---
Demographics + + + | Address | [address] | | | [place] [address] | + + + | Home Phone | | + + + | Preferred Language | Unknown | + + + | Marital Status | | + + + | Scientology Affiliation | 1077 | + + + | Race | White | + + + | Ethnic Group | Not or | + + + Author + + + | Author | [facility] | | | and [place] | + + + | Organization | [facility] | | [...] Team Providers + +------+ + | Care Dye Jig Operator Name | Role | Phone | + +------+ + | Rahul Silva MD | PCP | | + +------+ + Reason for Visit + +--------+ + | Reason | Onset | Comments | | | Date | | + +--------+ + | Post-op Question | 08/07/ | ear | | | 2016 | | + +--------+ + Encounter Details +--------+ + + + + | Date | Type | Department | Care Team | Description | +--------+ + + + + | 08/07/ | Telephone | [facility] [place] | Steven Tobar MD | Post-op Question | | 2016 | | OTOLARYNGOLOGY [address] | [address] [place] | (ear) | | | | [address] [facility] [facility] [address] | [address] | | | | | [place] | [address] | | | | | [address] | | | | | | [phone] | | | +--------+ + + + [...] this encounter Miscellaneous Notes Telephone Encounter - Sarah Manzanares, Cashier Office - 08/07/2016 3:14 PM PDTCalled a nd spoke to patient daughter explained to her what said and wanted her to do. Patie nt daughter is going to go and get some neosporin and start putting on his ear. She will kyrie l if she has any other questions. elephone Encounter - Steven Tobar MD - 08/07/2016 11:44 AM PD THe most likely has some old blood in ear canal that Dr muhammad will remove at his po visit . They should apply some neosporin to cut area daily or other topical antiobiotic other cortez keep dry elephone Breann jackson - Sarah Manzanares, Cashier Office - 08/07/2016 11:03 AM PDTPatient daughter calls i n because she has a couple of questions that she wanted to ask . They have an appoin tment with Dr. Muhammad 08/13 but until then she would like to know how to care and clean for his ear until then. She also states that he can't hear and would like to know if there is a nything that she can do. Told her that I will talk to then give her a call back wit h an answer. Charlotte said that would be just fine and to call her cell phone. documented in this en counter Plan of Treatment +--------+ + + + + | Date | Type | Specialty | Care Team | Description | +--------+ + + + + | 10/30/ | Virtual | Nephrology | Farrukh Acuna MD | | | 2019 | Office | | [address] [facility] | | | | Visit | | [address] [place], [place] | | | | | | [id number] | | | | | | | | +--------+ + + + + documented as of this encounter Visit Diagnoses Not on filedocumented in this encounter"
--- OUTSIDE RECORDS SUMMARY | ~2020-08-15 | XMS | Encounter Summary ---
Demographics + + + | Address | [address] | | | [place] [address] | + + + | Home Phone | | + + + | Preferred Language | Unknown | + + + | Marital Status | | + + + | Mandaen Affiliation | 1077 | + + + | Race | White | + + + | Ethnic Group | Not or | + + + Author + + + | Author | [facility] | | | and [place] | + + + | Organization | [facility] | | | and [...] Team Providers + +------+ + | Care Furniture Assembler And Installer Name | Role | Phone | + +------+ + | Rahul Silva MD | PCP | | + +------+ + Reason for Visit +---------+ + | Reason | Comments | +---------+ + | Results | 11/29/19 | +---------+ + Encounter Details +--------+ + + + + | Date | Type | Department | Care Team | Description | +--------+ + + + + | 12/02/ | Documentati | [facility] | Ismon, | Results (11/29/19) | | 2020 | on | NEPHROLOGY [place] | [place] | | | | | [address] | Registered Land Surveyor | | | | | [address] [place], [place] | | | | | | [address] | | | | | | [phone] | | | +--------+ + + + [...] 2019 | Office | | [address] | | | | Visit | | [address] [place], [place] | | | | | | [address] | | | | | | | | +--------+ + + + + documented as of this encounter Procedures + +--------+ + + + | Procedure Name | Priori | Date/Time | Associated Diagnosis | Comments | | | ty | | | | + +--------+ + + + | EXTERNAL LAB: ESA, | Routin | 11/29/2019 | | Results for this | | INTACT | e | | | procedure are in the | | | | | | results section. | + +--------+ + + + | CBC NO DIFFERENTIAL | Routin | 11/29/2019 | | Results for this | | | e | | | procedure are in the | | | | | | results section. | + +--------+ + + + | IRON AND IRON | Routin | 11/29/2019 | | Results for this | | BINDING CAPACITY | e | | | procedure are in the | | | | | | results section. | + +--------+ + + + | MAGNESIUM | Routin | 11/29/2019 | | Results for this | | | e | | | procedure are in the | | | | | | results section. | + +--------+ + + + | RENAL FUNCTION PANEL | Routin | 11/29/2019 | | Results for this | | | e | | | procedure are in the | | | | | | results section. | + +--------+ + + + documented in this encounter Results External Lab: PTH, Intact (11/29/2019) + +-------+ + + + | Component | Value | Ref Range | Performed | Pathologist | | | | | At | Signature | + +-------+ + + + | PTH Intact, | 52.93 | 15 - 65 | | | | External | | | | | + +-------+ + + + + + | Specimen | + + | | + + CBC with Manual Differential (11/29/2019) + + + + + + | Component | Value | Ref Range | Performed | Pathologist | | | | | At | Signature | + + + + + + | WBC | 7.4 | 4.5 - 11.0 | | | + + + + + + | Red Blood | 2.98 (A) | 4.30 - 5.70 | | | | Cells | | M/uL | | | + + + + + + | Hemoglobin | 8.5 (A) | 13.5 - 18.0 | | | + + + + + + | Hematocrit, | 25.7 (A) | 41.0 - 50.0 % | | | | POC | | | | | + + + + + + | MCV | 86.4 | 81.0 - 99.0 fL | | | + + + + + + | MCH | 29.0 | 27.0 - 33.0 pg | | | + + + + + + | MCHC | 33.0 | 30.0 - 36.0 | | | | | | g/dL | | | + + + + + + | Platelet | 292 | 140 - 440 | | | | Count | | | | | | Plasma | | | | | + + + + + + | RDW | 14.4 | 10.5 - 15.0 | | | + + + + + + | Neutrophils | 75.2 | 39 - 80 | | | | , Absolute | | | | | + + + + + + | Absolute | 10.7 (A) | 24 - 44 | | | | Lymphocytes | | | | | + + + + + + | Absolute | 7.0 | 0 - 12 | | | | Monocytes | | | | | + + + + + + | Eosinophils | 5.8 | 0 - 6 | | | | , Absolute | | | | | + + + + + + | Basophils, | 0.8 | 0 - 2 | | | | Absolute | | | | | + + + + + + + + | Specimen | + + | Blood | + + Magnesium (11/29/2019) + +---------+ + + + | Component | Value | Ref Range | Performed | Pathologist | | | | | At | Signature | + +---------+ + + + | Magnesium | 2.7 (A) | 1.7 - 2.5 mg/dL | | | + +---------+ + + + + + | Specimen | + + | Blood | + + Iron and Iron Binding Capacity (11/29/2019) + + + + + + | Component | Value | Ref Range | Performed | Pathologist | | | | | At | Signature | + + + + + + | Iron | 52 | 37 - 160 ug/dL | | | + + + + + + | Iron | 23 | 20 - 55 % | | | | Saturation | | | | | + + + + + + | TIBC | 227 (A) | 245 - 400 ug/dL | | | + + + + + + | Ferritin, | 217.4 | 30 - 400 | | | | External | | | | | + + + + + + | TRANSFERRIN | 132.2 (A) | 180.0 - 329.0 | | | | | | mg/dL | | | + + + + + + + + | Specimen | + + | Blood | + + Renal Function Panel (11/29/2019) + + + + + + | Component | Value | Ref Range | Performed | Pathologist | | | | | At | Signature | + + + + + + | Na | 138 | 132 - 143 | | | | | | mmol/L | | | + + + + + + | K | 4.0 | 3.6 - 5.1 | | | | | | mmol/L | | | + + + + + + | Cl | 96 | 95 - 112 mmol/L | | | + + + + + + | CO2 | 28 | 19 - 31 mmol/L | | | + + + + + + | Anion Gap | 18 | 7 - 21 mmol/L | | | + + + + + + | Glucose | 164 (A) | 70 - 100 mg/dL | | | + + + + + + | BUN | 54 (A) | 6 - 23 mg/dL | | | + + + + + + | Creatinine | 5.49 (A) | 0.70 - 1.18 | | | | | | mg/dL | | | + + + + + + | Estimated | 10.0 (A) | 60.0 - 140.0 | | | | GFR | | mL/min/1.73m2 | | | + + + + + + | BUN/Creatin | 9.8 | 6.0 - 28.6 | | | | ine Ratio | | | | | + + + + + + | Albumin | 3.0 (A) | 3.5 - 5.0 g/dL | | | + + + + + + | Calcium | 8.4 (A) | 8.5 - 10.3 | | | + + + + + + | PHOSPHORUS | 5.8 (A) | 2.5 - 5.0 | | | + + + + + + + + | Specimen | + + | Blood | + + documented in this encounter Visit Diagnoses Not on filedocumented in this encounter"
--- OUTSIDE RECORDS SUMMARY | ~2020-08-15 | XMS | Encounter Summary ---
Demographics + + + | Address | [address] | | | [place] [address] | + + + | Home Phone [...] Team Providers + +------+ + | Care Consumer Credit Counselor Name | Role | Phone | + +------+ + | Mehrdad Bergman | PCP | | + +------+ + Reason for Visit +--------+ + | Reason | Comments | +--------+ + | Other | [facility] 08/01/20 | +--------+ + Encounter Details +--------+ + + + + | Date | Type | Department | Care Team | Description | +--------+ + + + + | 08/09/ | Documentati | [facility] | Simon, | Other ([place] | | 2019 | on | NEPHROLOGY [place] | Charlie Abdi | ER note 08/01/20) | | | | [address] | Cafeteria Cook | | | | | [address] [facility] [place] | | | | | | [address] | | | | | | [phone] | | | +--------+ + + + [...] 2019 | Office | | [address] [facility] [address] | | | | Visit | | [address] [place] [address] | | | | | | [address] | | | | | | | | +--------+ + + + + documented as of this encounter Procedures + +--------+ + + + | Procedure Name | Priori | Date/Time | Associated Diagnosis | Comments | | | ty | | | | + +--------+ + + + | CBC NO DIFFERENTIAL | Routin | 08/01/2020 | | Results for this | | | e | | | procedure are in the | | | | | | results section. | + +--------+ + + + | BASIC METABOLIC | Routin | 08/01/2020 | | Results for this | | PANEL | e | | | procedure are in the | | | | | | results section. | + +--------+ + + + documented in this encounter Results Basic Metabolic Panel (08/01/2020) + + + + + + | Component | Value | Ref Range | Performed | Pathologist | | | | | At | Signature | + + + + + + | Na | 135 | 132 - 143 | | | [...] + + + + | Glucose | 189 (A) | 70 - 100 mg/dL | | | + + + + + + | BUN | 45 (A) | 6 - 23 mg/dL | | | + + + + + + | Creatinine | 4.25 (A) | 0.70 - 1.11 | | | | | | mg/dL | | | + + + + + + | Estimated | 14.0 (A) | 60.0 - 140.0 | | | | GFR | | mL/min/1.73m2 | | | + + + + + + | BUN/Creatin | 10.6 | 6.0 - 28.6 | | | | ine Ratio | | | | | + + + + + + + + | Specimen | + + | Blood | + + CBC with Manual Differential (08/01/2020) + + + + + + | Component | Value | Ref Range | Performed | Pathologist | | | | | At | Signature | + + + + + + | WBC | 9.7 | 4.5 - 11.0 | | | | | | 10*3/uL | | | + + + + + + | Red Blood | 3.08 (A) | 4.30 - 5.70 | | | | Cells | | M/uL | | | + + + + + + | Hemoglobin | 9.2 (A) | 13.5 - 18.0 | | | + + + + + + | Hematocrit, | 27.5 (A) | 41.0 - 50.0 % | | | | POC | | | | | + + + + + + | MCV | 89.3 | 81.0 - 99.0 fL | | | + + + + + + | MCH | 30.0 | 27.0 - 33.0 pg | | | + + + + + + | MCHC | 33.0 | 30.0 - 96.0 | | | | | | g/dL | | | + + + + + + | Platelet | 328 | 140 - 440 | | | | Count | | | | | | Plasma | | | | | + + + + + + | RDW-SD | 15.4 (A) | 10.5 - 15.0 | | | + + + + + + | % | 72.6 | 39.0 - 80.0 % | | | | Neutrophils | | | | | + + + + + + | % | 9.3 (A) | 24.0 - 44.0 % | | | | Lymphocytes | | | | | + + + + + + | Monocyte % | 10.5 | 0 - 12 | | | + + + + + + | Eosinophils | 6.9 (A) | 0 - 6 | | | | % | | | | | + + + + + + | Basophils % | 0.7 | 0 - 2 | | | + + + + + + + + | Specimen | + + | Blood | + + documented in this encounter Visit Diagnoses Not on filedocumented in this encounter"
--- OUTSIDE RECORDS SUMMARY | ~2020-08-15 | XMS | Encounter Summary ---
Demographics + + + | Address | [address] | | | [place] [address] | + + + | Home Phone | | + + + | Preferred Language | Unknown | + + + | Marital Status | Single | + + + | Church Affiliation | PRO | + + + | Race | White | + + + | Ethnic Group | Not or | + + + Author + + + | Author | [facility] | + + + | Organization | [facility] | + + + | Address | Unknown | + + + | Phone | Unavailable | + + + Support + + + + + | Name | Relationship | Address | Phone | + + + + + | Darci Andujar | VALERIE | [place] | | | | | [address] | | + + + + + Care Team Providers + +------+ + | Care Hat Stock Laminating Machine Operator Name | Role | Phone [...] Note | | 2000 | Visit-Trans | [address] [facility] | [phone] | | | | [place] | [address] | | | | | | [place], [place] | | | | | | [address] | | | +--------+ + + + [...] recommend that he see one of our music specialist for further evaluation, and he did appear interested in doing that. 2. Referral to Dr. Willis in Orthopedics. Yuriy Huang M.D. clay temperer KYLEE / [id number] / [id number] / [id number] / [id number] C: 01/23/2001 nw documented in this encounter Plan of Treatment Not on filedocumented as of this encounter Visit Diagnoses Not on filedocumented in this encounter"
--- OUTSIDE RECORDS SUMMARY | ~2020-08-15 | XMS | Encounter Summary ---
Demographics + + + | Address | [address] | | | [place] [address] | + + + | Home Phone [...] + | Author | [facility] | | | and [place] | + + + | Organization | [facility] | | | and [...] Team Providers + +------+ + | Care Learning And Development Administrator Name | Role | Phone | + +------+ + | Rahul Silva MD | PCP | | + +------+ + Encounter Details +--------+ + + + + | Date | Type | Department | Care Team | Description | +--------+ + + + + | 01/13/ | Orders Only | [facility] | Conversion | | | 2016 | | NEPHROLOGY [place] | Transaction, | | | | | [address] | Provider Unknown | | | | | [address] [place] [address] | | | | | | [address] | (Fax) | | | | | [phone] | | | +--------+ + + + [...] 2019 | Office | | [address] [facility] | | | | Visit | | [address] [facility] | | | | | | [address] | | | | | | | | +--------+ + + + + documented as of this encounter Procedures + +--------+ + + + | Procedure Name | Priori | Date/Time | Associated Diagnosis | Comments | | | ty | | | | + +--------+ + + + | EXTERNAL LAB: CBC | Routin | 01/13/2017 | | Results for this | | | e | 2:50 PM | | procedure are in the | | | | PST | | results section. | + +--------+ + + + | URINALYSIS, | Routin | 01/13/2017 | | Results for this | | MICROSCOPIC ONLY | e | 2:50 PM | | procedure are in the | | | | PST | | results section. | + +--------+ + + + | PROTEIN/CREATININE | Routin | 01/13/2017 | | Results for this | | RATIO, URINE | e | 2:50 PM | | procedure are in the | | | | PST | | results section. | + +--------+ + + + | URIC ACID | Routin | 01/13/2017 | | Results for this | | | e | 2:50 PM | | procedure are in the | | | | PST | | results section. | + +--------+ + + + | PARATHYROID HORMONE, | Routin | 01/13/2017 | | Results for this | | INTACT | e | 2:50 PM | | procedure are in the | | | | PST | | results section. | + +--------+ + + + | MAGNESIUM | Routin | 01/13/2017 | | Results for this | | | e | 2:50 PM | | procedure are in the | | | | PST | | results section. | + +--------+ + + + | RENAL FUNCTION PANEL | Routin | 01/13/2017 | | Results for this | | | e | 2:50 PM | | procedure are in the | | | | PST | | results section. | + +--------+ + + + documented in this encounter Results Protein/Creatinine Ratio, Urine (01/13/2017 2:50 PM PST) + + + + + + | Component | Value | Ref Range | Performed | Pathologist | | | | | At | Signature | + + + + + + | Protein/Cre | 689.7 (A) | 0 - 150 | EXTERNAL [...] + +---------+ + + Urinalysis, Microscopic Only (01/13/2017 2:50 PM PST) + + + + + [...] + + + + | Specific | 1.008 | 1.005 - 1.030 | EXTERNAL | | | [place], | | | LAB | | | [...] + + + | Protein, | Comment: 25 | | EXTERNAL | | | Urine [...] + +---------+ + + External Lab: CBC (01/13/2017 2:50 PM PST) + + + + + + | Component | Value | Ref Range | Performed | Pathologist | | | | | At | Signature | + + + + + + | WBC | 9.4 | 4.5 - 11.0 10 | EXTERNAL | | | | | | LAB | | + + + + + + | Non- | 4.17 (A) | 4.3 - 5.7 10 | EXTERNAL | | | Red Blood | | | LAB | | | Cells | | | | | | Counted | | | | | + + + + + + | Hemoglobin | 11.7 (A) | 13.5 - 18.0 | EXTERNAL | | | | | g/dL | LAB | | + + + + + + | Hematocrit, | 36.0 (A) | 41 - 50 % | EXTERNAL | | | POC | | | LAB | | + + + + + + | MCV | 86.4 | 81 - 99 fL | EXTERNAL [...] + + + + | Platelet | 237 | 140 - 440 K/ L | [...] | + +---------+ + + Uric Acid (01/13/2017 2:50 PM PST) + +-------+ + + + | Component | Value | Ref Range | Performed | Pathologist | | | | | At | Signature | + +-------+ + + + | Uric Acid | 7.2 | 4.4 - 7.6 | EXTERNAL | [...] + +---------+ + + Parathyroid Hormone, Intact (01/13/2017 2:50 PM PST) + + + + + + | Component | Value | Ref Range | Performed | Pathologist | | | | | At | Signature | + + + + + + | PTH INTACT | 114.3 (A) | 15 - 65 pg/mL | [...] | | + +---------+ + + Magnesium (01/13/2017 2:50 PM PST) + +---------+ + + + | Component | Value | Ref Range | Performed | Pathologist | | | | | At | Signature | + +---------+ + + + | Magnesium | 2.9 (A) | 1.7 - 2.5 mg/dL | [...] + +---------+ + + Renal Function Panel (01/13/2017 2:50 PM PST) + + + + + + | Component | Value | Ref Range | Performed | Pathologist | | | | | At | Signature | + + + + + + | Glucose, | 220 (A) | 70 - 100 mg/dL | EXTERNAL | | | Fasting | | | LAB | | + + + + + + | BUN | 54 (A) | 6 - 23 mg/dL | EXTERNAL | | | | | | LAB | | + + + + + + | Creatinine | 2.61 (A) | 0.70 - 1.18 | EXTERNAL [...] + + + + | Cl | 97 | 95 - 112 mmol/L | EXTERNAL | | | | | | LAB | | + + + + + + | CO2 | 22 | 19 - 31 mmol/L | EXTERNAL | | | | | | LAB | | + + + + + + | Anion Gap | 17.6 | 7 - 21 mmol/L | EXTERNAL | | | | | | LAB | | + + + + + + | eGFR, | | | EXTERNAL | | | non- | | | LAB | | | [place] | | | | | + + + + + + | Phosphorus, | 5.3 (A) | 2.5 - 5.0 | EXTERNAL | | | Inorganic | | | LAB | | + + + + + + | BUN/Creatin | 20.7 | 6.0 - 28.6 | EXTERNAL | | | ine Ratio | | | LAB | | + + + + + + | Calcium | 8.5 | 8.4 - 10.2 | EXTERNAL | | | | | mg/dL | LAB | | + + + + + + | Estimated | 24 | mg/dL | EXTERNAL | | | [...]
--- OUTSIDE RECORDS SUMMARY | ~2020-08-15 | XMS | Encounter Summary ---
Demographics + + + | Address | [address] | | | [place] [address] | + + + | Home Phone [...] Team Providers + +------+ + | Care Business Continuity Management Director Name | Role | Phone | + +------+ + | Mehrdad Bergman | PCP | | + +------+ + Reason for Visit +--------+--------+ + | Reason | Onset | Comments | | | Date | | +--------+--------+ + | Other | 06/08/ | Hospitalization | | | 2020 | | +--------+--------+ + Encounter Details +--------+ + + + + | Date | Type | Department | Care Team | Description | +--------+ + + + + | 06/08/ | Telephone | [facility] | LaiElmira rodas | Other | | 2020 | | NEPRHOLOGY [place] | A, Medical | (Hospitalization ) | | | | [address] | Floorworker | | | | | [address] [place], [place] | | | | | | [address] | | | | | | [phone] | | | +--------+ + + + [...] this encounter Miscellaneous Notes Telephone Encounter - Elmira Hoyt, Repair Service Clerk - 06/08/2020 10:11 AM PDTPati ents daughter called to inform us that her father was taken by ambulance this morning to [facility]. He was suffering from confusion and slurred speech. She said that she would call when patient is discharged so that we can request records. documented in this encounter Plan of Treatment +--------+ + + + + | Date | Type | Specialty | Care Team | Description | +--------+ + + + + | 10/30/ | Virtual | Nephrology | Farrukh Acuna MD | | 2019 | Office | | [address] [facility] | | | | Visit | | [address] [place], [place] | | | | | | [address] | | | | | | | | +--------+ + + + + documented as of this encounter Visit Diagnoses Not on filedocumented in this encounter"
--- OUTSIDE RECORDS SUMMARY | ~2020-08-15 | XMS | Encounter Summary ---
Demographics + + + | Address | [address] | | | [place] [address] | + + + | Home Phone [...] Team Providers + +------+ + | Care Elementary Reading Specialist Name | Role | Phone | + +------+ + | Mehrdad Bergman | PCP | | + +------+ + Reason for Visit +---------+ + | Reason | Comments | +---------+ + | Results | 03/21/20 | +---------+ + Encounter Details +--------+ + + + + | Date | Type | Department | Care Team | Description | +--------+ + + + + | 03/23/ | Documentati | [facility] | Simon, | Results (03/21/20) | | 2020 | on | NEPHROLOGY [place] | [facility] | | | | | [address] | Litigation Specialist | | | | | [address] [facility] | | | | | | [place], [place] | | | | | | [address] | | | | | | [phone] | | | +--------+ + + + [...] | | | Visit | | [address] [facility], [place] | | | | | | [address] | | | | | | | | +--------+ + + + + documented as of this encounter Procedures + +--------+ + + + | Procedure Name | Priori | Date/Time | Associated Diagnosis | Comments | | | ty | | | | + +--------+ + + + | EXTERNAL LAB: ESA, | Routin | 03/21/2020 | | Results for this | | INTACT | e | | | procedure are in the | | | | | | results section. | + +--------+ + + + | CBC NO DIFFERENTIAL | Routin | 03/21/2020 | | Results for this | | | e | | | procedure are in the | | | | | | results section. | + +--------+ + + + | IRON AND IRON | Routin | 03/21/2020 | | Results for this | | BINDING CAPACITY | e | | | procedure are in the | | | | | | results section. | + +--------+ + + + | MAGNESIUM | Routin | 03/21/2020 | | Results for this | | | e | | | procedure are in the | | | | | | results section. | + +--------+ + + + | RENAL FUNCTION PANEL | Routin | 03/21/2020 | | Results for this | | | e | | | procedure are in the | | | | | | results section. | + +--------+ + + + documented in this encounter Results External Lab: PTH, Intact (03/21/2020) + + + + + + | Component | Value | Ref Range | Performed | Pathologist | | | | | At | Signature | + + + + + + | PTH Intact, | 188.7 (A) | 15 - 65 | | | | External | | | | | + + + + + + + + | Specimen | + + | | + + CBC with Manual Differential (03/21/2020) + + + + + + | Component | Value | Ref Range | Performed | Pathologist | | | | | At | Signature | + + + + + + | WBC | 7.5 | 4.5 - 11.0 | | | + + + + + + | Red Blood | 3.12 (A) | 4.30 - 5.70 | | | | Cells | | M/uL | | | + + + + + + | Hemoglobin | 9.2 (A) | 13.5 - 18.0 | | | + + + + + + | Hematocrit, | 28.0 (A) | 41.0 - 50.0 % | | | | POC | | | | | + + + + + + | MCV | 89.6 | 81.0 - 99.0 fL | | | + + + + + + | MCH | 29.0 | 27.0 - 33.0 pg | | | + + + + + + | MCHC | 33.0 | 30.0 - 36.0 | | | | | | g/dL | | | + + + + + + | Platelet | 265 | 140 - 440 | | | | Count | | | | | | Plasma | | | | | + + + + + + | RDW | 16.1 (A) | 10.5 - 15.0 | | | + + + + + + | BAL | 75 | 39 - 80 % | | | | Neutrophils | | | | | | % | | | | | + + + + + + | % | 10 (A) | 24 - 44 | | | | Lymphocytes | | | | | + + + + + + | Monocyte % | 9 | 0 - 12 | | | + + + + + + | BAL | 6 | 0 - 6 % | | | | Eosinophils | | | | | | % | | | | | + + + + + + | % | 0 | 0 - 2 % | | | | Basophils, | | | | | | Body Fluid | | | | | + + + + + + + + | Specimen | + + | Blood | + + Magnesium (03/21/2020) + +-------+ + + + | Component | Value | Ref Range | Performed | Pathologist | | | | | At | Signature | + +-------+ + + + | Magnesium | 2.2 | 1.7 - 2.5 mg/dL | | | + +-------+ + + + + + | Specimen | + + | Blood | + + Iron and Iron Binding Capacity (03/21/2020) + +--------+ + + + | Component | Value | Ref Range | Performed | Pathologist | | | | | At | Signature | + +--------+ + + + | Iron | 41 | 37 - 160 ug/dL | | | + +--------+ + + + | Iron | 262 | 245 - 400 | | | | Binding | | | | | | Capacity | | | | | + +--------+ + + + | Iron | 16 (A) | 20 - 55 % | | | | Saturation | | | | | + +--------+ + + + | TRANSFERRIN | 186.9 | 180.0 - 329.0 | | | | | | mg/dL | | | + +--------+ + + + + + | Specimen | + + | Blood | + + Renal Function Panel (03/21/2020) + + + + + + | Component | Value | Ref Range | Performed | Pathologist | | | | | At | Signature | + + + + + + | Na | 140 | 132 - 143 | | | | | | mmol/L | | | + + + + + + | K | 4.2 | 3.6 - 5.1 | | | | | | mmol/L | | | + + + + + + | Cl | 106 | 95 - 112 mmol/L | | | + + + + + + | CO2 | 23 | 19 - 31 mmol/L | | | + + + + + + | Anion Gap | 15 | 7 - 21 mmol/L | | | + + + + + + | Glucose | 160 (A) | 70 - 100 mg/dL | | | + + + + + + | BUN | 56 (A) | 6 - 23 mg/dL | | | + + + + + + | Creatinine | 4.48 (A) | 0.70 - 1.18 | | | | | | mg/dL | | | + + + + + + | Estimated | 13.0 (A) | 60.0 - 140.0 | | | | GFR | | mL/min/1.73m2 | | | + + + + + + | BUN/Creatin | 12.5 | 6.0 - 28.6 | | | | ine Ratio | | | | | + + + + + + | Albumin | 3.3 (A) | 3.5 - 5.0 g/dL | | | + + + + + + | Calcium | 7.7 (A) | 8.5 - 10.3 | | | + + + + + + | PHOSPHORUS | 5.0 | 2.5 - 5.0 | | | + + + + + + + + | Specimen | + + | Blood | + + documented in this encounter Visit Diagnoses Not on filedocumented in this encounter"
--- OUTSIDE RECORDS SUMMARY | ~2020-08-15 | XMS | Encounter Summary ---
Demographics + + + | Address | [address] | | | [place] [address] | + + + | Home Phone | | + + + | Preferred Language | Unknown | + + + | Marital Status | | + + + | Muslim Affiliation | 1077 | + + + | Race | White | + + + | Ethnic Group | Not or | + + + Author + + + | Author | [facility] | | | and [place] | + + + | Organization | [facility] | | | and [place] | + + + | Address | Unknown | + + + | Phone | Unavailable | + + + Support + + +---------+ + | Name | Relationship | Address | Phone | + + +---------+ + | Krys Andujar | ECON | Unknown | | + + +---------+ + Care Team Providers + +------+ + | Care Mat Repairer Name | Role | Phone | + +------+ + | Rahul Silva MD | PCP | | + +------+ + Reason for Visit +--------+--------+ + | Reason | Onset | Comments | | | Date | | +--------+--------+ + | Other | 09/01/ | | | | 2019 | | +--------+--------+ + Encounter Details +--------+ + + + + | Date | Type | Department | Care Team | Description | +--------+ + + + + | 09/01/ | Telephone | [facility] | Farrukh Acuna MD | Other | | 2019 | | NEPRHOLOGY [place] | [address] | | | | | [address] | [address] [place], [place] | | | | | [address] [place], [place] | [address] | | | | | [address] | | | | | | [phone] | | | +--------+ + + + [...] Miscellaneous Notes Telephone Encounter - Trinidad Simon Door Frame Builder - 09/02/2019 9:46 AM Henrry Acuna if the patients provider would like to discuss lab results they can call his cell rolf owen at any time. Called to relay message to krys but was unable to reach her I left thomas jennings with information and clinic name and number for her to call back with any questions.Elect ronically signed by Trinidad Simon, Door Frame Builder at 09/02/2019 9:48 AM Chandrika e Linda - Laureen Gill V - 09/01/2019 1:22 PM PDTProvider: Akoum/Surgery Concerns patient and daughter called wanting to ask Armand if he can call him to discuss lab result a nd also concerns of the surgery due to his 2 blood clots on his arms. Surgery is on 09/10/19 . Please call them back at [phone]. Detailed message may be left on phone: Yes Last OV: 07/26/19 Next OV: 10/04/19 If this is a symptom based call and you were unable to immediately transfer the call to [facility] staff, was caller made aware that if at any timeshefeels it is an emergency they shoul d call 911 or go to the nearest emergency room? No Is hammer adjuster needed: no documented in this enc ounter Plan of Treatment +--------+ + + + + | Date | Type | Specialty | Care Team | Description | +--------+ + + + + | 10/30/ | Virtual | Nephrology | Farrukh Acuna MD | | | 2019 | Office | | [address] [facility] | | | | Visit | | [address] [place], [place] | | | | | | [id number] | | | | | | | | +--------+ + + + + documented as of this encounter Visit Diagnoses Not on filedocumented in this encounter"
--- OUTSIDE RECORDS SUMMARY | ~2020-08-15 | XMS | Encounter Summary ---
Demographics + + + | Address | [address] | | | [place] [address] | + + + | Home Phone | | + + + | Preferred Language | Unknown | + + + | Marital Status | | + + + | Sabianist Affiliation | 1077 | + + + | Race | White | + + + | Ethnic Group | Not or | + + + Author + + + | Author | [facility] | | | and [place] | + + + | Organization | [facility] | | | [...] Team Providers + +------+ + | Care Independent Driver Name | Role | Phone | + [...] | [address] | [address] [facility] | | | | | [place], [place] | [address] [place], [place] | | | | | [address] | [address] | | | | | [phone] | | | +--------+ + + + [...] 2020 | Office | | [address] [facility] | | | | Visit | | [address] [place] | | | | | | [address] | | | | | | | [...]
--- OUTSIDE RECORDS SUMMARY | ~2020-08-15 | XMS | Encounter Summary ---
Demographics + + + | Address | [address] | | | [place] [address] | + + + | Home Phone [...] Team Providers + +------+ + | Care Whiteprinting Machine Operator Name | Role | Phone [...] + + | 12/07/ | Telephone | [facility] | Farrukh Acuna MD | Other (Blood | | 2020 | | NEPHROLOGY [place] | [address] | pressure concern. ) | | | | [address] | [address] [facility] [place] | | | | | [address] [place], [place] | [id number] | | | | | [address] | | | | | | [phone] | | | +--------+ + + + [...] Miscellaneous Notes Telephone Encounter - Trinidad Simon Inside Sales Consultant - 12/07/2019 5:29 PM PSTPatie nts daughter [...] | | | Visit | | [address] [place], [place] | | | | | | [address] | | | | | | | | +--------+ + + + + documented as of this encounter Visit Diagnoses Not on filedocumented in this encounter"
--- OUTSIDE RECORDS SUMMARY | ~2020-08-15 | XMS | Encounter Summary ---
Demographics + + + | Address | [address] | | | [place] [address] | + + + | Home Phone [...] Team Providers + +------+ + | Care Superintendent Water And Sewer Systems Name | Role | Phone | + [...] + + | 08/13/ | Telephone | [facility] | Farrukh Acuna MD | Other (lab result) | | 2019 | | NEPRHOLOGY [place] | [address] | | | | | [address] | [address] [place], [place] | | | | | [address] [place], [place] | [address] | | | | | [address] | | | | | | [phone] | | | +--------+ + + + [...] Notes Telephone Encounter - Oly Alvarenga V, Hospice Coordinator - 08/13/2019 3:32 PM [address] e with Dr. Acuna. Per Dr. Acuna, no change, potassium ok. Called and spoke with daughterCharlotte. Relay the provider message. She voiced understandin g. No further questions. elephone Encounter - Oly Alvarenga V Hospice Coordinator - 08/13 3:05 PM PDTPlease review and advice. I already abstract the lab results. elephone Encounter - Laureen Gill V - 08/13/2019 2:1 6 PM PDTProvider: Armand/lab results patient and daughter called wanting to get lab results today, I did inform we have no provi dixie in office and are low staffed, she wants a call today with lab results. Please call them back at [phone]. Detailed message may be left on phone: Yes Last OV: 05/31/19 Next OV: 10/04/19 If this is a symptom based call and you were unable to immediately transfer the call to [facility] staff, was caller made aware that if at any timeshefeels it is an emergency they shoul d call 911 or go to the nearest emergency room? N/A Is historic interpreter needed: no documented in this enc ounter Plan of Treatment +--------+ + + + + | Date | Type | Specialty | Care Team | Description | +--------+ + + + + | 10/30/ | Virtual | Nephrology | Farrukh Acuna MD | | | 2019 | Office | | [address] [facility] | | | | Visit | | [address] [place] | | | | | | [address] | | | | | | | | +--------+ + + + + documented as of this encounter Visit Diagnoses Not on filedocumented in this encounter"
--- OUTSIDE RECORDS SUMMARY | ~2020-08-15 | XMS | Encounter Summary ---
Demographics + + + | Address | [address] | | | [place] [address] | + + + | Home Phone [...] Team Providers + +------+ + | Care Rigging Helper Name | Role | Phone | [...] + + | 02/07/ | Refill | [facility] | Farrukh Acuna MD | Medication Refill | | 2020 | | NEPHROLOGY [place] | [address] | | | | | [address] | [address] [facility] [place] | | | | | [facility] [address] | [id number] | | | | | [place], [place] | | | | | | [address] | | | | | | [phone] | | | +--------+--------+ + + + [...] ddendum Note - Kanwal Sampson Medica l Junior Sales Representative - 02/08/2020 5:22 PM PDT Addended by: [...] 2020 | Office | | [address] [facility] | | | | Visit | | [address] [place] | | | | | | [address] | | | | | | | | +--------+ + + + + documented as of this encounter Visit Diagnoses + + | Diagnosis | + + | Essential hypertension - Primary Unspecified essential hypertension | + + documented in this encounter"
--- OUTSIDE RECORDS SUMMARY | ~2020-08-15 | XMS | Encounter Summary ---
Demographics + + + | Address | [address] | | | [place] [address] | + + + | Home Phone [...] Team Providers + +------+ + | Care Cardiothoracic Icu Rn Name | Role | Phone | + +------+ + | Rahul Silva MD | PCP | | + +------+ + Encounter Details +--------+ + + + + | Date | Type | Department | Care Team | Description | +--------+ + + + + | 10/28/ | Orders Only | [facility] | Conversion | | | 2016 | | NEPHROLOGY [place] | Transaction, | | | | | [address] | Provider Unknown | | | | | [address] [place] | | | | | | [address] | (Fax) | | | | | [phone] | | | +--------+ + + + [...] 2019 | Office | | [address] [facility] | | | | Visit | | [facility] | | | | | | [address] | | | | | | | [...]
--- OUTSIDE RECORDS SUMMARY | ~2020-08-15 | XMS | Encounter Summary ---
Demographics + + + | Address | [address] | | | [place] [address] | + + + | Home Phone [...] Author + + + | Author | [facility] | + + + | Organization | [facility] | + + + | Address | Unknown | + + + | Phone | Unavailable | + + + Support + + + + + | Name | Relationship | Address | Phone | + + + + + | Darci Andujar | [address] | [place] | | | | | [address] | | + + + + + Care Team Providers + +------+ + | Care Directory Carrier Name | Role | Phone | + +------+ + | Rahul Silva MD | PCP | | + +------+ + Encounter Details +--------+ + + + + | Date | Type | Department | Care Team | Description | +--------+ + + + + | 04/06/ | Results | Registration [id number] | | | | 1998 | Only | [address] | | | | | | Rene Mailcode: [id number] | | | | | | [place], [place] | | | | | | [address] | | | | | | [phone] | | | +--------+ + + + [...] | + +--------+ + + + | CHEMISTRY TESTS 4 | Routin | 04/06/1998 | | Results for this | | | e | 7:30 AM | | procedure are in the | | | | PDT | | results section. | + +--------+ + + + | CBC TESTS 2 | Routin | 04/06/1998 | | Results for this | | | e | 7:30 AM | | procedure are in the | | | | PDT | | results section. | + +--------+ + + + | COAGULATION TESTS 2 | Routin | 04/06/1998 | | Results for this | | | e | 7:30 AM | | procedure are in the | | | | PDT | | results section. | + +--------+ + + + | SURGICAL PATHOLOGY | Routin | 04/06/1998 | | Results for this | | | e | | | procedure are in the | | | | | | results section. | + +--------+ + + + documented in this encounter Results CHEMISTRY TESTS 4 (04/06/1998 7:30 AM PDT) + + + + + + | Component | Value | Ref Range | Performed | Pathologist | | | | | At | Signature | + + + + + + | SODIUM, | 139. | mmol/l | | | | PLASMA | | | | | | (LAB) | | | | | + + + + + + | POTASSIUM, | 4.1 | mmol/l | | | | PLASMA | | | | | | (LAB) | | | | | + + + + + + | CHLORIDE, | 105. | mmol/l | | | | PLASMA | | | | | | (LAB) | | | | | + + + + + + | TOTAL CO2, | 24. | mmol/l | | | | PLASMA | | | | | | (LAB) | | | | | + + + + + + + + | Specimen | + + | | + + + + + + + | Performing | Address | City/State/Zipcode | Phone Number | | Organization | | | | + + + + + | [facility] | [address] | [place] [address] | | | PATHOLOGY | [address] | | | + + + + + COAGULATION TESTS 2 (04/06/1998 7:30 AM PDT) + + + + + + | Component | Value | Ref Range | Performed | Pathologist | | | | | At | Signature | + + + + + + | PROTHROMBIN | 12.3 | SECONDS | | | | TIME | | | | | + + + + + + | PROTIME | 1. | SECONDS | | | | RATIO | | | | | + + + + + + | PROTHROMBIN | 1.09 | INR | | | | INR | | | | | + + + + + + | APTT | 28.2 | SECONDS | | | + + + + + + + + | Specimen | + + | | + + + + + + + | Performing | Address | City/State/Zipcode | Phone Number | | Organization | | | | + + + + + | [facility] | [address] | [place] [address] | | | PATHOLOGY | [address] | | | + + + + + CBC TESTS 2 (04/06/1998 7:30 AM PDT) + + + + + + | Component | Value | Ref Range | Performed | Pathologist | | | | | At | Signature | + + + + + + | WHITE CELL | 7.7 | K/CU MM | | | | COUNT | | | | | + + + + + + | RED CELL | 4.99 | M/CU MM | | | | COUNT | | | | | + + + + + + | HEMOGLOBIN | 14.6 | GM/DL | | | + + + + + + | HEMATOCRIT | 43.2 | % | | | + + + + + + | MCV | 86.6 | [place] | | | + + + + + + | MCH | 29.2 | PG | | | + + + + + + | MCHC | 33.7 | GM/DL | | | + + + + + + | RDW | 13.9 | % | | | + + + + + + | PLATELET | 237. | K/CU MM | | | | COUNT | | | | | + + + + + + | MPV | 7.9 | [place] | | | + + + + + + + + | Specimen | + + | | + + + + + + + | Performing | Address | City/State/Zipcode | Phone Number | | Organization | | | | + + + + + | [facility] | [address] | [place] [address] | | | PATHOLOGY | [address] | | | + + + + + SURGICAL PATHOLOGY (04/06/1998) + + + + + + | [...] | OF | | | | History:CLINICAL HISTORY | | PATHOLOGY | | | | Patient Age: 57 | | | | | | year old man | | | | | | Patient History: "AKA" | | | | | | stump pain. GROSS | | | | | | DESCRIPTION | | | | | | Specimens received: | | | | | | Two in formalin | | | | | | #1 SCIATIC NEUROMA: | | | | | | Received is one fragment | | | | | | of bynum to maroon, | | | | | | softtissue measuring 5 x | | | | | | 2.5 x 2.5 cm. in | | | | | | greatest dimensions. The | | | | | | specimenis inked black. | | | | | | Serial sectioning | | | | | | reveals a well | | | | | | circumscribed, bynum | | | | | | topink, granular cut | | | | | | surface with circular, | | | | | | clear, cyst-like | | | | | | structuresmeasuring 2 | | | | | | cm. to 3 cm. in | | | | | | diameter. Approximately | | | | | | 50% of the specimenis | | | | | | submitted. #2 | | | | | | FEMORAL NEUROMA: | | | | | | Received is one fragment | | | | | | of bynum to maroon, | | | | | | softtissue measuring 4 x | | | | | | 2.5 x 1.5 cm. in | | | | | | greatest dimensions. | | | | | | Extendingfrom one end is | | | | | | a cylindrical, bynum to | | | | | | pink fragment of tissue | | | | | | measuring3.4 cm. in | | | | | | length by 0.3 cm. in | | | | | | diameter. The specimen | | | | | | is inked black.Serial | | | | | | sectioning reveals a bynum | | | | | | to pink, granular cut | | | | | | surface.Approximately | | | | | | 90% of the specimen is | | | | | | submitted. 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 | [address] | [place] [address] | | | PATHOLOGY | [address] | | | + + + + + documented in this encounter Visit Diagnoses Not on filedocumented in this encounter
--- OUTSIDE RECORDS SUMMARY | ~2020-08-15 | XMS | Encounter Summary ---
Demographics + + + | Address | [address] | | | [place] [address] | + + + | Home Phone [...] + + + | Author | [facility] | | | and [place] | + + + | Organization | [facility] | | | [...] Providers + +------+ + | Care Building Guard Deputy Sheriff Name | Role | Phone | + [...] + + | 07/21/ | Documentati | [facility] | Simon, | Results (07/19/19) | | 2019 | on | NEPHROLOGY [place] | [facility] | | | | | [address] | Stuffed Casing Tier | | | | | [address] [facility] [place] | | | | | | [address] | | | | | | [phone] | | | +--------+ + + + [...] | | [address] [facility] | | | | Visit | | [address] [place] | | | | | | [address] | | | | | | | [...] | ESTIMATE | | | | | | (REF) | | | | | + + [...] + + + + | RBC | 4 | 4 - 6 | [...]
--- OUTSIDE RECORDS SUMMARY | ~2020-08-15 | XMS | Encounter Summary ---
Demographics + + + | Address | [address] | | | [place] [address] | + + + | Home Phone [...] Team Providers + +------+ + | Care Cae Engineer Name | Role | Phone | + +------+ + | Mehrdad Bergman | PCP | | + +------+ + Encounter Details +--------+ + + + + | Date | Type | Department | Care Team | Description | +--------+ + + + + | 07/27/ | Orders Only | [facility] | Farrukh Acuna MD | Essential | | 2020 | | NEPHROLOGY [place] | [address] | hypertension | | | | [address] | [address] [place], [place] | (Primary Dx); Type 2 | | | | [address] [place], [place] | [address] | diabetes mellitus | | | | [address] | | with diabetic | | | | [phone] | | nephropathy, with | | | | | | long-term current | | | | | | use of insulin | | | | | | ([facility]); Anemia of | | | | | | chronic kidney | | | | | | failure, stage 5 | | | | | | ([facility]); Persistent | | | | | | proteinuria; CKD | | | | | | (chronic kidney | | | | | | disease) stage 5, | | | | | | GFR less than 15 | | | | | | ml/min ([facility]) | +--------+ + + + [...] 2019 | Office | | [address] [facility] | | | | Visit | | [address] [place] | | | | | | [address] | | | | | | | | +--------+ + + + + documented as of this encounter Visit Diagnoses + + | Diagnosis | + + | Essential hypertension - Primary Unspecified essential hypertension | + + | Type 2 diabetes mellitus with diabetic nephropathy, with long-term current use of | | insulin ([facility]) | + + | Anemia of chronic kidney failure, stage 5 ([facility]) | + + | Persistent proteinuria Proteinuria | + + | CKD (chronic kidney disease) stage 5, GFR less than 15 ml/min ([facility]) Chronic kidney | | disease, Stage V | + + documented in this encounter"
--- OUTSIDE RECORDS SUMMARY | ~2020-08-15 | XMS | Encounter Summary ---
Demographics + + + | Address | [address] | | | [place] [address] | + + + | Home Phone | | + + + | Preferred Language | Unknown | + + + | Marital Status | Single | + + + | Yazdanism Affiliation | PRO | + + + [...] [place] | | | | | [address] | | + + + + + Care Team Providers + +------+ + | Care Bread Pan Greaser Name | Role | Phone | + [...] | | | Management | Late | Hardik | MD Seven | | | | | complication | MD [address] | [address] | | | | | s of | [address] | Ave | | | | | amputation | [place], | [place], [place] | | | | | stump, | [place] [address] | [address] | | | | | unspecified | Phone: | Phone: | | | | | | [phone] | [phone] | | | | | | Fax: | Fax: | | | | | | [phone] | [phone] | +--------+--------+ + + + + Encounter Details +--------+---------+ + + + | Date | Type | Department | Care Team | Description | +--------+---------+ + + + | 04/10/ | Office | [facility] | Seven Reilly MD | Low back pain; | | 2009 | Visit | Pain Center at | [address] | Herniated lumbar | | | | [facility] | [place], [place] | intervertebral disc; | | | | [address] | [address] | Stump pain (HCC) | | | | [facility] | [phone] | | | | | and Healing, | | | | | | Building | | | | | | Floor [place], [place] | | | | | | [address] | | | | | | [phone] | | | +--------+---------+ + + + [...] saw and evaluated the patient with Fellow Vlad Martinez MD, who conducted the history. I reviewed the history in detail. I was present for the examination and formulation portions of the encounter. I agree with the findings and the plan of care as documented in this note, and I edited the trainee's note. Seven Reilly MD, [facility], [facility], Mariano Rubio MD - 04/10/2010 12:30 PM PDT [facility] Office Visit 04/10/2010 Kavon Andujar; ; : 1940 Mr. Andujar was referred for pain management consultation by HARDIK COYNE MD [address] [place] [id number] Reason for visit: Chief Complaint Patient presents [...] pain. He has been referred to the [facility] for consultation regarding this ongoing pain problem. Past treatments for this pain complaint has included medications such as PAIN MEDICINES: Opioids: Butorphanol (Stadol): Why stopped?: Not Effective. Codeine, Tylenol #3, #4, 222: Why stopped?: Not Effective. Fentanyl patches (Duragesic): Why stopped?: Not Effective. Methadone (Dolophine, Methadose): Why stopped?: Not Effective. Morphine (JessizaStephan, Ms Contin, MSIR): Why stopped?: Not Effective. [...] that the most effective treatments include: medications. BATHROOM TILING PROFESSIONAL Brief Pain Inventory: (ten= worst possible pain [...] above. As part of today's visit the [facility] new patient questionnaire was review [...] you expect from your visits to the [facility] ? Don't know Vital Signs: [...] and summary of old medical records (source: [facility]), as summarized in the body of the [...] generic medication. Follow up: none scheduled at [facility]. Mariano Martinez MD Pain Fellow [facility] documented in this encounter Miscellaneous Notes Scan - Other, Faculty - 04/14/2010 10:44 AM PDT can - Other, Faculty - 04/14/2010 10:41 AM PDT can - Unknown - 010 12:00 AM PDT Scan - Unknown - 04/10/2010 12:00 AM PDT documented in this encounter Plan of Treatment [...]
--- OUTSIDE RECORDS SUMMARY | ~2020-08-15 | XMS | Encounter Summary ---
Demographics + + + | Address | [address] | | | [place] [address] | + + + | Home Phone [...] Team Providers + +------+ + | Care Seasonal Driver Name | Role | Phone | [...] | | | [address] | [place] [address] | | | | | [place] [address] | | | | | | [phone] | | | +--------+ + + + [...] | | [address] [facility] [address] | | | | Visit | | [address] [place] | | | | | | [address] | | | | | | | [...]
--- OUTSIDE RECORDS SUMMARY | ~2020-08-15 | XMS | Encounter Summary ---
Demographics + + + | Address | [address] | | | [place] [address] | + + + | Home Phone | | + + + | Preferred Language | Unknown | + + + | Marital Status | | + + + | Zoroastrian Affiliation | 1077 | + + + | Race | White | + + + | Ethnic Group | Not or | + + + Author + + + | Author | [facility] | | | and [place] | + + + | Organization | [facility] | | | and [...] Team Providers + +------+ + | Care Contract Administrative Assistant Name | Role | Phone | + +------+ + | Rahul Silva MD | PCP | | + +------+ + Reason for Visit + +--------+ + | Reason | Onset | Comments | | | Date | | + +--------+ + | Advice Only | 09/23/ | | | | 2018 | | + +--------+ + Encounter Details +--------+ + + + + | Date | Type | Department | Care Team | Description | +--------+ + + + + | 09/23/ | Telephone | [facility] | Brian Orosco MD | Advice Only | | 2019 | | VASCULAR SURGERY | [address] | | | | | [address] [place] | [place], [place] | | | | | [place], [place] | [address] | | | | | [address] | [phone] | | | | | [phone] | | | +--------+ + + + [...] this encounter Miscellaneous Notes Telephone Encounter - Andreina Blackwell RN - 09/23/2019 4:33 PM PDTCalled moon Hickey states patient's steri strips feel off, she re-read his discharge instructions and realize d that it was normal. Patient does not need to go to ER. Charlotte also reports a "golf ball size" lump at patient's incision site, the lump does not hurt and has not grown, warm compre ss helps alleviate the discomfort and she wants to know if patient can keep doing that. Not ified Charlotte that patient can keep doing that, however he should monitor the lump, if it aldana s increase in size he should let us know immediately. Charlotte stated understanding, he will follow up as planned on 09/30/2019. elephone Encounter - Danica Ferrari - 09/23/2019 3:21 PM PDTAngela - daughter, is calling regarding Advice Only and would like a call back. Additional Call Details: Calling to speak with Nurse, States that patient's arm is not loo rama good and wants to know if she needs to take him to the ED. Please call her back at the home number listed. If this is a symptom based call, was patient offered triage? Not Applicable If this is a symptom based call and you were unable to immediately transfer the call to a rolf munoz recovery unit operator was caller made aware that if [...] 2019 | Office | | [address] [facility] | | | | Visit | | [address] [place] | | | | | | [address] | | | | | | | | +--------+ + + + + documented as of this encounter Visit Diagnoses Not on filedocumented in this encounter
--- OUTSIDE RECORDS SUMMARY | ~2020-08-15 | XMS | Encounter Summary ---
Demographics + + + | Address | [address] | | | [place] [address] | + + + | Home Phone | | + + + | Preferred Language | Unknown | + + + | Marital Status | Single | + + + | Scientologist Affiliation | PRO | + + + | Race | White | + + + | Ethnic Group | Not or | + + + Author + + + | Author | [facility] | + + + | Organization | [facility] | + + + | Address | Unknown | + + + | Phone | Unavailable | + + + Support + + + + + | Name | Relationship | Address | Phone | + + + + + | Darci Andujar | [place] | [place] | | | | | [address] | | + + + + + Care Team Providers + +------+ + | Care Plaster Machine Operator Name | Role | Phone [...] [address] | | | | | | [place] | | | | | | [address] | | | +--------+ + + + [...] as of this encounter Discharge Summaries Interface, Marriage And Family Teacher In - 04/01/2007 5:08 AM PDT [address] [address] [facility] MEDICAL SUMMARY OF HOSPITALIZATION Med [...] Clinic NK:freddie A cc: RUBIA KNAPP MD [address] [facility] [id number] documented in this encounter Plan of Treatment Not on filedocumented as of this encounter Visit Diagnoses Not on filedocumented in this encounter"
--- OUTSIDE RECORDS SUMMARY | ~2020-08-15 | XMS | Encounter Summary ---
Demographics + + + | Address | [address] | | | [place] [address] | + + + | Home Phone | | + + + | Preferred Language | Unknown | + + + | Marital Status | Single | + + + | Sabianism Affiliation | PRO | + + + [...] [place] | | | | | [address] | | + + + + + Care Team Providers + +------+ + | Care Shallot Packer Name | Role | Phone | + [...] Vyas | | | | | | [facility], [address] [place] [address] | | | | | | [place], [place] | | | | | | [address] | | | | | | [phone] | | | +--------+ + + + [...] as of this encounter Discharge Summaries Interface, Wall Taper Helper In - 02/05/2007 1:03 AM PST [address] [address] [facility] MEDICAL SUMMARY OF HOSPITALIZATION Med Rec No.: [id number] Admission Date: 12/28/96 Name: Kavon Andujar Discharge Date: 01/03/97 STAFF PHYSICIAN: Robert Carlson M.D. Professor, Vascular Surgery PRINCIPAL FINAL DIAGNOSIS: Osteophyte of left bbuwt-rtj-llic amputation stump. ADDITIONAL DIAGNOSES: Phantom pain. PRINCIPAL PROCEDURE: Revision of left pikcq-dym-koqt amputation stump and excision of left stump osteophyte. 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 Since then he has had pain in the stump. On a computed tomography (CT) scan, it was noted that he had a large bone spur and a cyst in his stump site. HOSPITAL COURSE: The patient was admitted on December 28 and underwent revision of his left wivwp-fne-afrp amputation stump with excision of his left [...] Normal. 3. DIET: Normal. Nick Noriega M.D. [employer] Hcm Consultant, General Surgery Robert Carlson M.D. Professor, Vascular Surgery DOMINIC/jc A cc: RUBIA KNAPP MD [address] [facility] [address] documented in this encounter Plan of Treatment Not on filedocumented as of this encounter Visit Diagnoses Not on filedocumented in this encounter"
--- OUTSIDE RECORDS SUMMARY | ~2020-08-15 | XMS | Encounter Summary ---
Demographics + + + | Address | [address] | | | [place] [address] | + + + | Home Phone [...] Providers + +------+ + | Care Technical Service Rep Name | Role | Phone | + [...] + + | 09/13/ | Telephone | [facility] | Terri Aguilar, | Follow-up | | 2019 | | VASCULAR SURGERY | Glassware Selector | | | | | [address] | | | | | | [place] | | | | | | [address] | | | | | | [phone] | | | +--------+ + + + [...] Miscellaneous Notes Telephone Encounter - Terri Aguilar Glassware Selector - 09/13/2019 11:01 AM PDTSpoke wi th pt's daughter and pt. Pt is doing okay - there was some increased pain at the site, but t he bandages were removed this morning and the pain is much better. Reminded both of post-op instructions. He is scheduled for f/u with [facility] on 09/30/2019. Encouraged both to call back with any questions/concerns. SamP d ocumented in this encounter Plan of Treatment +--------+ + + + + | Date | Type | Specialty | Care Team | Description | +--------+ + + + + | 10/30/ | Virtual | Nephrology | Farrukh Acuna MD | | | 2019 | Office | | [address] [facility] | | | | Visit | | [address] [place] | | | | | | [address] | | | | | | | | +--------+ + + + + documented as of this encounter Visit Diagnoses Not on filedocumented in this encounter"
--- OUTSIDE RECORDS SUMMARY | ~2020-08-15 | XMS | Encounter Summary ---
Demographics + + + | Address | [address] | | | [place] [address] | + + + | Home Phone [...] Team Providers + +------+ + | Care Freight Car Loader Name | Role | Phone | + +------+ + | Rahul Silva MD | PCP | | + +------+ + Encounter Details +--------+ + + + + | Date | Type | Department | Care Team | Description | +--------+ + + + + | 02/15/ | Orders Only | [facility] | Conversion | | | 2019 | | NEPHROLOGY [place] | Transaction, | | | | | [address] | Provider Unknown | | | | | [address] [place] | | | | | | [address] | (Fax) | | | | | [phone] | | | +--------+ + + + [...] 2019 | Office | | [address] [facility] | | | | Visit | | [facility] | | | | | | [address] | | | | | | | [...]
--- OUTSIDE RECORDS SUMMARY | ~2020-08-15 | XMS | Encounter Summary ---
Demographics + + + | Address | [address] | | | [place] [address] | + + + | Home Phone [...] Team Providers + +------+ + | Care Auto Repair Technician Name | Role | Phone | + +------+ + | Rahul Silva MD | PCP | | + +------+ + Encounter Details +--------+ + + + + | Date | Type | Department | Care Team | Description | +--------+ + + + + | 02/12/ | Orders Only | [facility] | Farrukh Acuna MD | | | 2018 | | NEPHROLOGY [place] | [address] [place] | | | | | [address] [place] | [address] [place], [place] | | | | | [address] [place], [place] | [address] | | | | | [address] | | | | | | [phone] | | | +--------+ + + + [...] Office | | [address] [facility] | | | | Visit | | [address] [place], [place] | | | | | | [address] | | | | | | | [...] | | | LAB | | | Filipino | | | | | + + [...]
--- OUTSIDE RECORDS SUMMARY | ~2020-08-15 | XMS | Encounter Summary ---
Demographics + + + | Address | [address] | | | [place] [address] | + + + | Home Phone [...] Providers + +------+ + | Care Adjunct Political Science Instructor Name | Role | Phone | + +------+ + | Rahul Silva MD | PCP | | + +------+ + Encounter Details +--------+ + + + + | Date | Type | Department | Care Team | Description | +--------+ + + + + | 07/14/ | Orders Only | [facility] | Farrukh Acuna MD | | | 2018 | | NEPRHOLOGY [place] | [address] [facility] [address] | | | | | [address] | [address] [place], [place] | | | | | [address] [place], [place] | [address] | | | | | [address] | | | | | | [phone] | | | +--------+ + + + [...] | | | Visit | | [address] [place], [place] | | | | | | [address] | | | | | | | [...]
--- OUTSIDE RECORDS SUMMARY | ~2020-08-15 | XMS | Encounter Summary ---
Demographics + + + | Address | [address] | | | [place] [address] | + + + | Home Phone [...] Team Providers + +------+ + | Care Overlock Elastic Attacher Name | Role | Phone [...] [address] | | | | | [place], [place] | [place], [place] | | | | | [address] | [address] | | | | | [phone] | [phone] | | | | | | | [...] 2020 | Office | | [address] [facility] | | | | Visit | | [address] [place] | | | | | | [address] | | | | | | | [...]
--- OUTSIDE RECORDS SUMMARY | ~2020-08-15 | XMS | Encounter Summary ---
Demographics + + + | Address | [address] | | | [place] [address] | + + + | Home Phone [...] Team Providers + +------+ + | Care Options Advisor Name | Role | Phone | [...] | Transaction, | | | | | [place], [place] | Provider Unknown | | | | | [address] | [phone] | | | | | [phone] | | | +--------+ + + + [...] 2020 | Office | | [address] [facility] | | | | Visit | | [address] [place], [place] | | | | | | [address] | | | | | | | [...]
--- OUTSIDE RECORDS SUMMARY | ~2020-08-15 | XMS | Encounter Summary ---
Demographics + + + | Address | [address] | | | [place] [address] | + + + | Home Phone [...] Team Providers + +------+ + | Care Stuffer Name | Role | Phone | + +------+ + | Rahul Sliva MD | PCP | | + +------+ + Encounter Details +--------+ + + + + | Date | Type | Department | Care Team | Description | +--------+ + + + + | 08/20/ | Orders Only | [facility] | Farrukh Acuna MD | Anemia of chronic | | 2019 | | NEPHROLOGY [place] | [address] [place] | renal failure, stage | | | | [address] [place] | [address] [place], [place] | 4 (severe) (HCC) | | | | [address] [place], [place] | [address] | (Primary Dx); Stage | | | | [address] | | 4 chronic kidney | | | | [phone] | | disease (HCC); | | | [...] 2020 | Office | | [address] [facility] | | | | Visit | | [address] [place] | | | | | | [address] | | | | | | | [...]
--- OUTSIDE RECORDS SUMMARY | ~2020-08-15 | XMS | Encounter Summary ---
Demographics + + + | Address | [address] | | | [place] [address] | + + + | Home Phone [...] Team Providers + +------+ + | Care Blade Balancer Name | Role | Phone | + +------+ + | Rahul Silva MD | PCP | | + +------+ + Encounter Details +--------+ + + + + | Date | Type | Department | Care Team | Description | +--------+ + + + + | 12/07/ | Orders Only | [facility] | Farrukh Acuna MD | Essential | | 2020 | | NEPHROLOGY [place] | [address] [place] | hypertension | | | | [address] [place] | [address] [place], [place] | (Primary Dx); | | | | [address] [place], [place] | [address] | Secondary | | | | [address] | | hyperparathyroidism | | | | [phone] | | (HCC); Anemia of | | | | | | chronic kidney | | | | | | failure, stage 5 | | | | | | ([facility]); CKD (chronic | | | | | | kidney disease) | | | | | | stage 5, GFR less | | | | | | than 15 ml/min | | | | | | ([facility]); Persistent | | | | | [...] | [address] [facility] [address] | | | | Visit | | [address] [place] | | | | | | [address] | | | | | | | [...] | | | | ml/min ([facility]) | | | | | | [...] | | | | ml/min ([facility]) | | | | | | [...] | | | | ml/min ([facility]) | | | | | | [...] | | | | ml/min ([facility]) | | | | | | [...] | | | | ml/min ([facility]) | | | | | | [...] | | | | | ([facility]) CKD (chronic | | | | | | kidney disease) | | | | | | stage 5, GFR less | | | | | | than 15 ml/min ([facility]) | | + +------+--------+ + + | Ferritin | Lab | Routin | Essential | Expected: | | | | e | hypertension Anemia | 01/07/2020, Expires: | | | | | of chronic kidney | 12/07/2020 | | | | | failure, stage 5 | | | | | | ([facility]) CKD (chronic | | | | | | kidney disease) | | | | | | stage 5, GFR less | | | | | | than 15 ml/min ([facility]) | | + +------+--------+ + + | Parathyroid Hormone, | Lab | Routin | Essential | Expected: | | Intact | | e | hypertension | 01/07/2020, Expires: | | | | | Secondary | 12/07/2020 | | | | | hyperparathyroidism | | | | | | ([facility]) CKD (chronic | | | | | | kidney disease) | | | | | | stage 5, GFR less | | | | | | than 15 ml/min ([facility]) | | | | | | [...]
--- OUTSIDE RECORDS SUMMARY | ~2020-08-15 | XMS | Encounter Summary ---
Demographics + + + | Address | [address] | | | [place] [address] | + + + | Home Phone | | + + + | Preferred Language | Unknown | + + + | Marital Status | | + + + | Pentecostal Affiliation | 1077 | + + + | Race | White | + + + | Ethnic Group | Not or | + + + Author + + + | Author | [facility] | | | and [place] | + + + | Organization | [facility] | | | and [place] | + + + | Address | Unknown | + + + | Phone | Unavailable | + + + Support + + +---------+ + | Name | Relationship | Address | Phone | + + +---------+ + | Charlotte Adnujar | ECON | Unknown | | + + +---------+ + Care Team Providers + +------+ + | Care Window Sash Installer Name | Role | Phone | + +------+ + | Rahul Silva MD | PCP | | + +------+ + Encounter Details +--------+---------+ + + + | Date | Type | Department | Care Team | Description | +--------+---------+ + + + | 12/06/ | Office | [facility] | Farrukh Acuna MD | CKD (chronic kidney | | 2020 | Visit | NEPHROLOGY [place] | [address] [place] | disease) stage 5, | | | | [address] | [address] [place], [place] | GFR less than 15 | | | | [address] | [address] | ml/min (HCC) | | | | [place], [place] | | (Primary Dx); Anemia | | | | [address] | | of chronic kidney | | | | [phone] | | failure, stage 5 | | [...] Also: I see no need for acute CERTIFIED ANESTHESIOLOGIST ASSISTANT. I see no need to send him [...] 10/2016 with severe pneumonia, severe ZEKE; needed CERTIFIED ANESTHESIOLOGIST ASSISTANT for ~5 weeks b efore renal function recovery mid 12/2016. He was admitted to [facility] for 3 nights in July 2016 for [...] 10/2016 with severe pneumonia, severe ZEKE; needed CERTIFIED ANESTHESIOLOGIST ASSISTANT for ~5 weeks b efore renal function [...] Also: I see no need for acute CERTIFIED ANESTHESIOLOGIST ASSISTANT. I see no need to send him [...] 2019 | Office | | [address] [facility] | | | | Visit | | [facility] | | | | | | [address] | | | | | | | | +--------+ + + + + documented as of this encounter Visit Diagnoses + + | Diagnosis | + + | CKD (chronic kidney disease) stage 5, GFR less than 15 ml/min ([facility]) - Primary Chronic | | kidney disease, Stage V | + + | Anemia of chronic kidney failure, stage 5 ([facility]) | + + | Edema of lower [...]
--- OUTSIDE RECORDS SUMMARY | ~2020-08-15 | XMS | Clinical Summary ---
Demographics + + + | Address | [address] | | | [place] [address] | + + + | Home Phone [...] Author + + + | Author | [facility] | + + + | Organization | [facility] | + + + | Address | Unknown | + + + | Phone | Unavailable | + + + Support + + + + + | Name | Relationship | Address | Phone | + + + + + | Darci Andujar | [address] | [place] | | | | | [address] | | + + + + + Care Team Providers + +------+ + | Care Assisted Living Home Director Name | Role | Phone | + +------+ + | Rahul Silva MD | PCP | | + +------+ + Source Comments [facility] is fully live on both [facility] and [facility] In[facility] Allergies No Known Allergies Medications + + [...]
--- OUTSIDE RECORDS SUMMARY | ~2020-08-15 | XMS | Encounter Summary ---
Demographics + + + | Address | [address] | | | [place] [address] | + + + | Home Phone [...] Team Providers + +------+ + | Care Ammonium Sulfate Operator Name | Role | Phone | [...] [address] | | | | | [place], [place] | [place], [place] | | | | | [address] | [address] | | | | | [phone] | [phone] | | | | | | | [...] 2020 | Office | | [address] [facility] | | | | Visit | | [address] [place] | | | | | | [address] | | | | | | | [...]
--- OUTSIDE RECORDS SUMMARY | ~2020-08-15 | XMS | Encounter Summary ---
Demographics + + + | Address | [address] | | | [place] [address] | + + + | Home Phone [...] Team Providers + +------+ + | Care Bass String Winder Name | Role | Phone | + +------+ + | Rahul Silva MD | PCP | | + +------+ + Encounter Details +--------+---------+ + + + | Date | Type | Department | Care Team | Description | +--------+---------+ + + + | 07/26/ | Office | [facility] | Farrukh Acuna MD | Stage 5 chronic | | 2019 | Visit | NEPHROLOGY [place] | [address] [place] | kidney disease not | | | | [address] | [address] [place], [place] | on chronic dialysis | | | | [address] | [address] | (HCC) (Primary Dx); | | | | [place], [place] | | Edema of lower | | | | [address] | | extremity; Tobacco | | | | [phone] | | dependence syndrome; | | | [...] Also: I see no need for acute HAND II CUTTER. I see no need to send him [...] 05/31/19 1232 Encounter Date: 05/31/2019 Status: Signed Honey Blender: Farrukh Acuna MD (Physician) Patient Active Problem [...] 10/2016 with severe pneumonia, severe ZEKE; needed HAND II CUTTER for ~5 weeks b efore renal function recovery mid 12/2016. He was admitted to [facility] for 3 nights in July 2016 [...] 19.5 (A) 05/27/2019 LABPROT 2,445.6 (A) 03/01/2019 [id number] 30 10/08/2018 Assessment: Mr. Andujar is a 78 y.o. male patient with stage IV CKD on a background of diabetes & hypert ension and recent hospitalization for C-diff and hehydration. The most likely pathology here is that of diabetic nephropathy +/- hypertensive nephrosclerosis/arteriolosclerosis. He was hospitalized in 10/2016 with severe pneumonia, severe ZEKE; needed HAND II CUTTER for ~5 weeks b efore renal function [...] Also: I see no need for acute HAND II CUTTER. I see no need to send him [...] Truly yours, Farrukh Acuna MD FACP, FAS, FAHA documented in this enco unter Plan [...] | | | Visit | | [address] [place], [place] | | | | | | [address] | | | | | | | [...]
--- OUTSIDE RECORDS SUMMARY | ~2020-08-15 | XMS | Encounter Summary ---
Demographics + + + | Address | [address] | | | [place] [address] | + + + | Home Phone [...] Team Providers + +------+ + | Care Medical Assisting Program Director Name | Role | Phone | + +------+ + | Rahul Silva MD | PCP | | + +------+ + Encounter Details +--------+ + + + + | Date | Type | Department | Care Team | Description | +--------+ + + + + | 07/24/ | Orders Only | [facility] | Provider, | Chronic kidney | | 2019 | | SYSTEM GENERIC OP | MD Jonathan [address] | disease, stage IV | | | | CONVERSION [address] | [address] | (severe) ([facility]); | | | | [address] [place], [place] | [place] [address] | Persistent | | | | [address] | | proteinuria; | | | | [phone] | | Secondary | | | | | | hyperparathyroidism | | | | | | of renal origin | | | | | | ([facility]); Family | | | | [...] 2019 | Office | | [address] [facility] | | | | Visit | | [address] [place] | | | | | | [address] | | | | | | | [...] origin | | | | | | ([facility]) Persistent | | | | [...] origin | | | | | | ([facility]) Persistent | | | | [...] origin | | | | | | ([facility]) Persistent | | | | | | proteinuria | | + +------+--------+ + + | Parathyroid Hormone, | Lab | Routin | Chronic kidney | Expected: | | Intact | | e | disease, stage IV | 08/01/2019, Expires: | | | | | (severe) ([facility]) | 05/31/2020 | | | | | Chronic kidney | | | | | | disease, stage IV | | | | | | (severe) ([facility]) | | | [...] origin | | | | | | ([facility]) Persistent | | | | | | proteinuria | | + +------+--------+ + + documented as of this encounter Visit Diagnoses + + | Diagnosis | + + | Chronic kidney disease, stage IV (severe) ([facility]) Chronic kidney disease, Stage IV [...]
--- OUTSIDE RECORDS SUMMARY | ~2020-08-15 | XMS | Encounter Summary ---
Demographics + + + | Address | [address] | | | [place] [address] | + + + | Home Phone [...] Team Providers + +------+ + | Care Process Steward Name | Role | Phone | [...] + + | 02/27/ | Documentati | [facility] | Simon, | Results (bmp | | 2019 | on | NEPHROLOGY [place] | [facility] | 02/24/20) | | | | [address] | Value Stream Coach | | | | | [address] | | | | | | [place], [place] | | | | | | [address] | | | | | | [phone] | | | +--------+ + + + [...] 2019 | Office | | [address] [facility] [place] | | | | Visit | | [facility] | | | | | | [address] | | | | | | | [...]
--- OUTSIDE RECORDS SUMMARY | ~2020-08-15 | XMS | Encounter Summary ---
Demographics + + + | Address | [address] | | | [place] [address] | + + + | Home Phone [...] Team Providers + +------+ + | Care Practical Nursing Instructor Name | Role | Phone | [...] + + | 05/31/ | Documentati | [facility] | Ami Cole, | Results | | 2020 | on | NEPRHOLOGY [place] | Fixture Maker | (interpath-05/29/2020 | | | | [address] | | ) | | | | [address] [place], [place] | | | | | | [address] | | | | | | [phone] | | | +--------+ + + + [...] 2019 | Office | | [address] [facility] [place] | | | | Visit | | [address] [place], [place] | | | | | | [address] | | | | | | | [...]
--- OUTSIDE RECORDS SUMMARY | ~2020-08-15 | XMS | Encounter Summary ---
Demographics + + + | Address | [address] | | | [place] [address] | + + + | Home Phone [...] Team Providers + +------+ + | Care Line Pilot Name | Role | Phone | + +------+ + | Rahul Silva MD | PCP | | + +------+ + Encounter Details +--------+ + + + + | Date | Type | Department | Care Team | Description | +--------+ + + + + | 03/13/ | Orders Only | [facility] | Conversion | | | 2016 | | NEPHROLOGY [place] | Transaction, | | | | | [address] | Provider Unknown | | | | | [address] [place] | | | | | | [address] | (Fax) | | | | | [phone] | | | +--------+ + + + [...] | | | Visit | | [facility] | | | | | | [address] | | | | | | | [...] - 1.030 | EXTERNAL | | | [place], | | | LAB | | | [...] + + + + | Non- | 3.60 (A) | 4.3 - 5.7 [...] | | | LAB | | | [place] | | | | | + + [...]
--- OUTSIDE RECORDS SUMMARY | ~2020-08-15 | XMS | Encounter Summary ---
Demographics + + + | Address | [address] | | | [place] [address] | + + + | Home Phone [...] Team Providers + +------+ + | Care Last Picker Name | Role | Phone | [...] [address] | | | | | [place], [place] | [place], [place] | | | | | [address] | [address] | | | | | [phone] | | | | | | | [...] | Office | | [address] [facility] | | | | Visit | | [address] [place] | | | | | | [address] | | | | | | | [...]
--- OUTSIDE RECORDS SUMMARY | ~2020-08-15 | XMS | Encounter Summary ---
Demographics + + + | Address | [address] | | | [place] [address] | + + + | Home Phone [...] [place] | | | | | [address] | | + + + + + Care Team Providers + +------+ + | Care Trim Technician Name | Role | Phone | [...] [id number] | | | | | | [place], [place] | | | | | | [address] | | | | | | [phone] | | | +--------+ + + + [...] | + + + + + | [facility] | [address] | [place] [address] | | | PATHOLOGY | [address] | | | + + + + + SURGICAL PATHOLOGY (12/28/1996) + + + + + + | Component | Value | Ref Range | Performed | Pathologist | | | | | At | Signature | + + + + + + | SURGICAL | SOURCE OF SPECIMEN: SEE | | [facility] | | | PATHOLOGY | RESULTS | [...] | | | | | seen by: Hortensia Cortez | | | | | | Idris I [...] | + + + + + | [facility] | [address] | [place] [address] | | | PATHOLOGY | [address] | | | + + + + + documented in this encounter Visit Diagnoses Not on filedocumented in this encounter"
--- OUTSIDE RECORDS SUMMARY | ~2020-08-15 | XMS | Encounter Summary ---
Demographics + + + | Address | [address] | | | [place] [address] | + + + | Home Phone [...] Providers + +------+ + | Care Quality System Manager Name | Role | Phone | [...] [address] | | | | | [place], [place] | [place], [place] | | | | | [address] | [address] | | | | | [phone] | | | | | | | [...] 2020 | Office | | [address] [facility] | | | | Visit | | [address] [place] | | | | | | [address] | | | | | | | [...]
--- OUTSIDE RECORDS SUMMARY | ~2020-08-15 | XMS | Encounter Summary ---
Demographics + + + | Address | [address] | | | [place] [address] | + + + | Home Phone [...] Team Providers + +------+ + | Care Classics Teacher Name | Role | Phone | [...] | | [address] [place] | [place] [address] | | | | | [place] [address] | | | | | | [phone] | | | +--------+ + + + [...] 2020 | Office | | [address] [facility] | | | | Visit | | [facility] [place] | | | | | | [address] | | | | | | | [...]
--- OUTSIDE RECORDS SUMMARY | ~2020-08-15 | XMS | Encounter Summary ---
Demographics + + + | Address | [address] | | | [place] [address] | + + + | Home Phone [...] Team Providers + +------+ + | Care Lamination Builder Name | Role | Phone | + +------+ + | Rahul Silva MD | PCP | | + +------+ + Encounter Details +--------+ + + + + | Date | Type | Department | Care Team | Description | +--------+ + + + + | 03/24/ | Orders Only | [facility] | Farrukh Acuna MD | | | 2017 | | NEPHROLOGY [place] | [address] [place] | | | | | [address] [place] | [address] [place], [place] | | | | | [address] [place], [place] | [address] | | | | | [address] | | | | | | [phone] | | | +--------+ + + + [...] | | | Visit | | [address] [place], [place] | | | | | | [address] | | | | | | | [...]
--- OUTSIDE RECORDS SUMMARY | ~2020-08-15 | XMS | Encounter Summary ---
Demographics + + + | Address | [address] | | | [place] [address] | + + + | Home Phone [...] Team Providers + +------+ + | Care Development Intern Name | Role | Phone | [...] | | [address] [place] | [place] [address] | | | | | [place] [address] | | | | | | [phone] | | | +--------+ + + + [...] | [address] [facility] | | | | Visit | | [address] [place] | | | | | | [address] | | | | | | | [...]
--- OUTSIDE RECORDS SUMMARY | ~2020-08-15 | XMS | Encounter Summary ---
Demographics + + + | Address | [address] | | | [place] [address] | + + + | Home Phone [...] Team Providers + +------+ + | Care Forensic Materials Engineer Name | Role | Phone | + +------+ + | Rhaul Silva MD | PCP | | + +------+ + Encounter Details +--------+ + + + + | Date | Type | Department | Care Team | Description | +--------+ + + + + | 06/23/ | Orders Only | [facility] | Farrukh Acuna MD | | | 2018 | | NEPHROLOGY [place] | [address] [place] | | | | | [address] [place] | [address] [place], [place] | | | | | [address] [place], [place] | [address] | | | | | [address] | | | | | | [phone] | | | +--------+ + + + [...] 2020 | Office | | [address] [facility] | | | | Visit | | [address] [place], [place] | | | | | | [address] | | | | | | | [...]
--- OUTSIDE RECORDS SUMMARY | ~2020-08-15 | XMS | Encounter Summary ---
Demographics + + + | Address | [address] | | | [place] [address] | + + + | Home Phone [...] Team Providers + +------+ + | Care Bushel Girl Name | Role | Phone | + +------+ + PCP | Unavailable | + +------+ + Encounter Details +--------+ + + + + | Date | Type | Department | Care Team | Description | +--------+ + + + + | 05/22/ | [facility] | [facility] | Nelson Lutz MD | | | 1998 | Encounter | MED CTR GENERIC OP | [address], [place] | | | | | CONV DEPT [address] | [address] | | | | | [place], | [address] | | | | | [place] [address] | | | | | | [phone] | | | +--------+ + + + [...] [place] | | | | | | [address] | | | | | | | | +--------+ + + + + documented as of this encounter Visit Diagnoses Not on filedocumented in this encounter"
--- OUTSIDE RECORDS SUMMARY | ~2020-08-15 | XMS | Encounter Summary ---
Demographics + + + | Address | [address] | | | [place] [address] | + + + | Home Phone [...] Team Providers + +------+ + | Care Entry Level Machine Operator Name | Role | Phone | + +------+ + | Rahul Silva MD | PCP | | + +------+ + Encounter Details +--------+ + + + + | Date | Type | Department | Care Team | Description | +--------+ + + + + | 07/30/ | Orders Only | [facility] | Conversion | | | 2016 | | [facility] | Transaction, | | | | | [address] | Provider Unknown | | | | | [address] [place], [place] | [phone] | | | | | [address] | (Fax) | | | | | [phone] | | | +--------+ + + + [...] 2019 | Office | | [address] [facility] | | | | Visit | | [address] [place] | | | | | | [address] | | | | | | | [...]
--- OUTSIDE RECORDS SUMMARY | ~2020-08-15 | XMS | Encounter Summary ---
Demographics + + + | Address | [address] | | | [place] [address] | + + + | Home Phone [...] Providers + +------+ + | Care Machine Operator General Name | Role | Phone | + +------+ + | Rahul Silva MD | PCP | | + +------+ + Encounter Details +--------+ + + + + | Date | Type | Department | Care Team | Description | +--------+ + + + + | 08/13/ | Orders Only | [facility] | Farrukh Acuna MD | | | 2017 | | NEPHROLOGY [place] | [address] [place] | | | | | [address] [place] | [address] [place], [place] | | | | | [address] [place], [place] | [address] | | | | | [address] | | | | | | [phone] | | | +--------+ + + + [...] 2020 | Office | | [address] [facility] | | | | Visit | | [address] [place], [place] | | | | | | [address] | | | | | | | [...]
--- OUTSIDE RECORDS SUMMARY | ~2020-08-15 | XMS | Encounter Summary ---
Demographics + + + | Address | [address] | | | [place] [address] | + + + | Home Phone [...] Providers + +------+ + | Care Home Restoration Service Cleaner Name | Role | Phone | [...] | Transaction, | | | | | [place], [place] | Provider Unknown | | | | | [address] | [phone] | | | | | [phone] | | | +--------+ + + + [...] | | | Visit | | [address] [place], [place] | | | | | | [address] | | | | | | | [...]
--- OUTSIDE RECORDS SUMMARY | ~2020-08-15 | XMS | Encounter Summary ---
Demographics + + + | Address | [address] | | | [place] [address] | + + + | Home Phone [...] Providers + +------+ + | Care Apprentice Lineman Third Step Name | Role | Phone | + +------+ + | Mehrdad Bergman | PCP | | + +------+ + Encounter Details +--------+ + + + + | Date | Type | Department | Care Team | Description | +--------+ + + + + | 03/16/ | Orders Only | [facility] | Trisha Conner DNP | | | 2020 | | VASCULAR SURGERY | [address] | | | | | [address] [place] | [address] | | | | | [place], [place] | [address] | | | | | [address] | | | | | | [phone] | | | +--------+ + + + [...] + documented as of this encounter Progress Mily Conner Si, DNP - 03/16/2020 1:45 PM PDTPatient called reporting worsening right hand crampi ng for the past 2 months, pain is not constant but happens daily. Pain improves with pain me dication and heating pad. Offered patient follow up appointment with ultrasound next week, rolf santiago adamantly declined. He does not want to come to [facility] until the pandemic is over . Discussed with patient regarding the risk of AVF steal syndrome, patient is aware but marissa camp does not want to schedule any appointment with us at this time. He reports he will follow up with Dr. Acuna. Trisha Conner DNP documented in this encount er Plan of Treatment +--------+ + + + + | Date | Type | Specialty | Care Team | Description | +--------+ + + + + | 10/30/ | Virtual | Nephrology | Farrukh Acuna MD | | | 2019 | Office | | [address] [facility] | | | | Visit | | [address] [place] | | | | | | [address] | | | | | | | | +--------+ + + + + documented as of this encounter Visit Diagnoses Not on filedocumented in this encounter"
--- OUTSIDE RECORDS SUMMARY | ~2020-08-15 | XMS | Encounter Summary ---
Demographics + + + | Address | [address] | | | [place] [address] | + + + | Home Phone [...] Team Providers + +------+ + | Care Hops Farmworker Name | Role | Phone | + +------+ + | Mehrdad Bergman | PCP | | + +------+ + Encounter Details +--------+ + + + + | Date | Type | Department | Care Team | Description | +--------+ + + + + | 08/09/ | Orders Only | [facility] | Farrukh Acuna MD | Essential | | 2020 | | NEPHROLOGY [place] | [address] [place] | hypertension | | | | [address] [place] | [address] [place], [place] | (Primary Dx); Type 2 | | | | [address] [place], [place] | [address] | diabetes mellitus | | | | [address] | | with diabetic | | | | [phone] | | nephropathy, with | | | | | | long-term current | | | | | | use of insulin | | | | | | ([facility]); Anemia of | | | | | | chronic kidney | | | | | | failure, stage 5 | | | | | | ([facility]); CKD (chronic | | | | | | kidney disease) | | | | | | stage 5, GFR less | | | | | | than 15 ml/min | | | | | | ([facility]); Persistent | | | | [...] [place] | | | | | | [address] | | | | | | | [...] | | | use of insulin ([facility]) | | | | | | Anemia of chronic | | | | | | kidney failure, | | | | | | stage 5 ([facility]) CKD | | | | | | (chronic kidney | | | | | | disease) stage 5, | | | | | | GFR less than 15 | | | | | | ml/min ([facility]) | | | | | [...] | | | use of insulin ([facility]) | | | | | | Anemia of chronic | | | | | | kidney failure, | | | | | | stage 5 ([facility]) CKD | | | | | | (chronic kidney | | | | | | disease) stage 5, | | | | | | GFR less than 15 | | | | | | ml/min ([facility]) | | | | | [...] | | | use of insulin ([facility]) | | | | | | Anemia of chronic | | | | | | kidney failure, | | | | | | stage 5 ([facility]) CKD | | | | | | (chronic kidney | | | | | | disease) stage 5, | | | | | | GFR less than 15 | | | | | | ml/min ([facility]) | | | | | [...] | | | use of insulin ([facility]) | | | | | | Anemia of chronic | | | | | | kidney failure, | | | | | | stage 5 ([facility]) CKD | | | | | | (chronic kidney | | | | | | disease) stage 5, | | | | | | GFR less than 15 | | | | | | ml/min ([facility]) | | | | | [...] | | | use of insulin ([facility]) | | | | | | Anemia of chronic | | | | | | kidney failure, | | | | | | stage 5 ([facility]) CKD | | | | | | (chronic kidney | | | | | | disease) stage 5, | | | | | | GFR less than 15 | | | | | | ml/min ([facility]) | | | | | [...] | | | use of insulin ([facility]) | | | | | | Anemia of chronic | | | | | | kidney failure, | | | | | | stage 5 ([facility]) CKD | | | | | | (chronic kidney | | | | | | disease) stage 5, | | | | | | GFR less than 15 | | | | | | ml/min ([facility]) | | | | | [...] | | | use of insulin ([facility]) | | | | | | Anemia of chronic | | | | | | kidney failure, | | | | | | stage 5 ([facility]) CKD | | | | | | (chronic kidney | | | | | | disease) stage 5, | | | | | | GFR less than 15 | | | | | | ml/min ([facility]) | | | | | [...] | | | use of insulin ([facility]) | | | | | | Anemia of chronic | | | | | | kidney failure, | | | | | | stage 5 ([facility]) CKD | | | | | | (chronic kidney | | | | | | disease) stage 5, | | | | | | GFR less than 15 | | | | | | ml/min ([facility]) | | | | | [...] | | | use of insulin ([facility]) | | | | | | Anemia of chronic | | | | | | kidney failure, | | | | | | stage 5 ([facility]) CKD | | | | | | (chronic kidney | | | | | | disease) stage 5, | | | | | | GFR less than 15 | | | | | | ml/min ([facility]) | | | | | | Persistent | | | | | | proteinuria | | + +------+--------+ + + documented as of this encounter Visit Diagnoses + + | Diagnosis | + + | Essential hypertension - Primary Unspecified essential hypertension | + + | Type 2 diabetes mellitus with diabetic nephropathy, with long-term current use of | | insulin ([facility]) | + + | Anemia of chronic kidney failure, stage 5 ([facility]) | + + | CKD (chronic kidney disease) stage 5, GFR less than 15 ml/min ([facility]) Chronic kidney | | disease, Stage V | + + | Persistent proteinuria Proteinuria | + + documented in this encounter"
--- OUTSIDE RECORDS SUMMARY | ~2020-08-15 | XMS | Encounter Summary ---
Demographics + + + | Address | [address] | | | [place] [address] | + + + | Home Phone [...] Team Providers + +------+ + | Care Hay Stacker Operator Name | Role | Phone | [...] | Transaction, | | | | | [place], [place] | Provider Unknown | | | | | [address] | [phone] | | | | | [phone] | | | +--------+ + + + [...] 2020 | Office | | [address] [facility] | | | | Visit | | [address] [place] | | | | | | [address] | | | | | | | [...]
--- OUTSIDE RECORDS SUMMARY | ~2020-08-15 | XMS | Encounter Summary ---
Demographics + + + | Address | [address] | | | [place] [address] | + + + | Home Phone [...] Providers + +------+ + | Care Wire Machine Operator Name | Role | Phone | + +------+ + | Mehrdad Bergman | PCP | | + +------+ + Encounter Details +--------+ + + + + | Date | Type | Department | Care Team | Description | +--------+ + + + + | 06/05/ | Orders Only | [facility] | Ami Cole, | CKD (chronic kidney | | 2019 | | NEPHROLOGY [place] | [employer] Consultant | disease) stage 5, | | | | [address] | | GFR less than 15 | | | | [address] | | ml/min ([facility]) | | | | [place], [place] | | (Primary Dx); Anemia | | | | [address] | | of chronic kidney | | | | [phone] | | failure, stage 5 | | [...] + documented as of this encounter Progress Ami Pérez, [employer] Consultant - 06/05/2020 2:[address] Guerra sent him for a repeat BMP, CBC every 4 weeks. He will have RFP, CBC, Fe studies, Ferritin, intact PTH, UTPCR done before he comes back in 2 months. documented in this encounter Plan of Treatment +--------+ + + + + | Date | Type | Specialty | Care Team | Description | +--------+ + + + + | 10/30/ | Virtual | Nephrology | Farrukh Acuna MD | | | 2020 | Office | | [address] [facility] | | | | Visit | | [address] [place] | | | | | | [address] | | | | | | | | +--------+ + + + + + +------+--------+ + + | Name | Type | Priori | Associated Diagnoses | Order Schedule | | | | ty | | | + +------+--------+ + + | Basic Metabolic | Lab | Routin | CKD (chronic | every 4 weeks for 6 | | Panel | | e | kidney disease) | Occurrences starting | | | | | stage 5, GFR less | 06/05/2020 until | | | | | than 15 ml/min ([facility]) | 06/05/2021 | | | | | Anemia of chronic | | | | | | kidney failure, | | | | | | stage 5 ([facility]) | | | | | | Persistent | | | | | | proteinuria | | | | | | Essential | | | | | | hypertension Iron | | | | | | deficiency | | + +------+--------+ + + | CBC with | Lab | Routin | CKD (chronic | every 4 weeks for 6 | | Differential | | e | kidney disease) | Occurrences starting | | | | | stage 5, GFR less | 06/05/2020 until | | | | | than 15 ml/min ([facility]) | 06/05/2021 | | | | | Anemia of chronic | | | | | | kidney failure, | | | | | | stage 5 ([facility]) | | | | | | Persistent | | | | | | proteinuria | | | | | | Essential | | | | | | hypertension Iron | | | | | | deficiency | | + +------+--------+ + + | Renal Function Panel | Lab | Routin | CKD (chronic | Expected: | | | | e | kidney disease) | 08/06/2020, Expires: | | | | | stage 5, GFR less | 06/05/2021 | | | | | than 15 ml/min ([facility]) | | | | | | Anemia of chronic | | | | | | kidney failure, | | | | | | stage 5 ([facility]) | | | | | | Persistent | | | | | | proteinuria | | | | | | Essential | | | | | | hypertension Iron | | | | | | deficiency | | + +------+--------+ + + | CBC with | Lab | Routin | CKD (chronic | Expected: | | Differential | | e | kidney disease) | 08/06/2020, Expires: | | | | | stage 5, GFR less | 06/05/2021 | | | | | than 15 ml/min ([facility]) | | | | | | Anemia of chronic | | | | | | kidney failure, | | | | | | stage 5 ([facility]) | | | | | | Persistent | | | | | | proteinuria | | | | | | Essential | | | | | | hypertension Iron | | | | | | deficiency | | + +------+--------+ + + | Iron and Iron | Lab | Routin | CKD (chronic | Expected: | | Binding Capacity | | e | kidney disease) | 08/06/2020, Expires: | | | | | stage 5, GFR less | 06/05/2021 | | | | | than 15 ml/min ([facility]) | | | | | | Anemia of chronic | | | | | | kidney failure, | | | | | | stage 5 ([facility]) | | | | | | Persistent | | | | | | proteinuria | | | | | | Essential | | | | | | hypertension Iron | | | | | | deficiency | | + +------+--------+ + + | Ferritin | Lab | Routin | CKD (chronic | Expected: | | | | e | kidney disease) | 08/06/2020, Expires: | | | | | stage 5, GFR less | 06/05/2021 | | | | | than 15 ml/min ([facility]) | | | | | | Anemia of chronic | | | | | | kidney failure, | | | | | | stage 5 ([facility]) | | | | | | Persistent | | | | | | proteinuria | | | | | | Essential | | | | | | hypertension Iron | | | | | | deficiency | | + +------+--------+ + + | Parathyroid Hormone, | Lab | Routin | CKD (chronic | Expected: | | Intact | | e | kidney disease) | 08/06/2020, Expires: | | | | | stage 5, GFR less | 06/05/2021 | | | | | than 15 ml/min ([facility]) | | | | | | Anemia of chronic | | | | | | kidney failure, | | | | | | stage 5 ([facility]) | | | | | | Persistent | | | | | | proteinuria | | | | | | Essential | | | | | | hypertension Iron | | | | | | deficiency | | + +------+--------+ + + | Protein/Creatinine | Lab | Routin | CKD (chronic | Expected: | | Ratio, Urine | | e | kidney disease) | 08/06/2020, Expires: | | | | | stage 5, GFR less | 06/05/2021 | | | | | than 15 ml/min ([facility]) | | | | | | Anemia of chronic | | | | | | kidney failure, | | | | | | stage 5 ([facility]) | | | | | | Persistent | | | | | | proteinuria | | | | | | Essential | | | | | | hypertension Iron | | | | | | deficiency | | + +------+--------+ + + documented [...] metabolism | + + documented in this encounter"
--- OUTSIDE RECORDS SUMMARY | ~2020-08-15 | XMS | Encounter Summary ---
Demographics + + + | Address | [address] | | | [place] [address] | + + + | Home Phone [...] + +------+ + | Care Motion Picture Critic Name | Role | Phone | + +------+ + | Rahul Silva MD | PCP | | + +------+ + Encounter Details +--------+ + + + + | Date | Type | Department | Care Team | Description | +--------+ + + + + | 07/27/ | Orders Only | [facility] | Farrukh Acuna MD | Chronic kidney | | 2019 | | NEPHROLOGY [place] | [address] [place] | disease, stage IV | | | | [address] [place] | [address] [place], [place] | (severe) (HCC); | | | | [address] [place], [place] | [address] | Chronic kidney | | | | [address] | | disease, stage IV | | | | [phone] | | (severe) (HCC); | | | [...] 2019 | Office | | [address] [facility] [address] | | | | Visit | | [address] [place], [place] | | | | | | [address] | | | | | | | [...] | | | | | ([facility]) Persistent | | | | | | proteinuria | | + +------+--------+ + + documented as of this encounter Visit Diagnoses + + | Diagnosis | + + | Chronic kidney disease, stage IV (severe) ([facility]) Chronic kidney disease, Stage IV | | (severe) | + + | Family history of ischemic heart disease and other diseases of the circulatory system | + + | Secondary hyperparathyroidism of renal origin (HCC) Secondary hyperparathyroidism (of | | renal origin) | + + | Persistent proteinuria Proteinuria | + + documented in this encounter"
--- OUTSIDE RECORDS SUMMARY | ~2020-08-15 | XMS | Encounter Summary ---
Demographics + + + | Address | [address] | | | [place] [address] | + + + | Home Phone [...] Team Providers + +------+ + | Care Suppository Molding Machine Operator Name | Role | Phone | + +------+ + | Rahul Silva MD | PCP | | + +------+ + Encounter Details +--------+ + + + + | Date | Type | Department | Care Team | Description | +--------+ + + + + | 11/27/ | Orders Only | [facility] | Conversion | | | 2017 | | NEPHROLOGY [place] | Transaction, | | | | | [address] | Provider Unknown | | | | | [address] [place] | | | | | | [address] | (Fax) | | | | | [phone] | | | +--------+ + + + [...] 2019 | Office | | [address] [facility] | | | | Visit | | [facility] | | | | | | [address] | | | | | | | [...] | | | LAB | | | [place] | | | | | + + [...]
--- OUTSIDE RECORDS SUMMARY | ~2020-08-15 | XMS | Encounter Summary ---
Demographics + + + | Address | [address] | | | [place] [address] | + + + | Home Phone [...] Providers + +------+ + | Care Manager Exchange Name | Role | Phone | + [...] [address] | | | | | [place], [place] | [place], [place] | | | | | [address] | [address] | | | | | [phone] | [phone] | | | | | | | [...] 2020 | Office | | [address] [facility] | | | | Visit | | [address] [place] | | | | | | [address] | | | | | | | [...]
--- OUTSIDE RECORDS SUMMARY | ~2020-08-15 | XMS | Encounter Summary ---
Demographics + + + | Address | [address] | | | [place] [address] | + + + | Home Phone [...] Team Providers + +------+ + | Care Butadiene Converter Operator Name | Role | Phone | + +------+ + PCP | Unavailable | + +------+ + Encounter Details +--------+ + + + + | Date | Type | Department | Care Team | Description | +--------+ + + + + | 12/31/ | Hospital | [facility] | | | | 2000 | Encounter | MED CTR XRAY [address] | | | | | | [address] | | | | | | [place] [address] | | | | | | [phone] | | | +--------+ + + + [...] | | | Visit | | [address] [place], [place] | | | | | | [address] | | | | | | | | +--------+ + + + + documented as of this encounter Visit Diagnoses Not on filedocumented in this encounter"
--- OUTSIDE RECORDS SUMMARY | ~2020-08-15 | XMS | Encounter Summary ---
Demographics + + + | Address | [address] | | | [place] [address] | + + + | Home Phone [...] Providers + +------+ + | Care International Specialist Name | Role | Phone | + +------+ + | Mehrdad Bergman | PCP | | + +------+ + Encounter Details +--------+ + + + + | Date | Type | Department | Care Team | Description | +--------+ + + + + | 10/01/ | Telephone | [facility] | Farrukh Acuna MD | | | 2019 | | NEPHROLOGY [place] | [address] [facility] [address] | | | | | [address] [facility] | [address] [place] | | | | | [place] | [address] | | | | | [address] | | | | | | [phone] | | | +--------+ + + + [...] by Friday. Please call them back at [phone] . Detailed message may be left on [...] 2019 | Office | | [address] [facility] | | | | Visit | | [address] [place] | | | | | | [address] | | | | | | | | +--------+ + + + + documented as of this encounter Visit Diagnoses Not on filedocumented in this encounter"
--- OUTSIDE RECORDS SUMMARY | ~2020-08-15 | XMS | Encounter Summary ---
Demographics + + + | Address | [address] | | | [place] [address] | + + + | Home Phone [...] [facility] | | | and [...] Team Providers + +------+ + | Care Shake Sawyer Name | Role | Phone | + +------+ + | Rahul Silva MD | PCP | | + +------+ + Reason for Visit + +--------+ + | Reason | Onset | Comments | | | Date | | + +--------+ + | Lab Results | 09/24/ | | | | 2018 | | + +--------+ + Encounter Details +--------+ + + + + | Date | Type | Department | Care Team | Description | +--------+ + + + + | 09/24/ | Telephone | [facility] | Farrukh Acuna MD | Lab Results | | 2019 | | NEPHROLOGY [place] | [address] [place] | | | | | [address] [place] | [address] [facility] [place] | | | | | [address] [place], [place] | [address] | | | | | [address] | | | | | | [phone] | | | +--------+ + + + [...] Miscellaneous Notes Telephone Encounter - Trinidad Simon Carton Filler - 09/24/2019 2:49 PM PDTDrLedy bloom reviewed labs and stated that the patient labs show that he is stable. Called [place] and informed her of this. She verbalized understanding and had no further que stions at this time.Electronically signed by Trinidad Simon, Carton Filler at 2018 3:22 PM PDTTelephone Encounter - Trinidad Simon, Carton Filler - 09/24/2019 2:46 PM PDTPatients daughter called [...] 2019 | Office | | [address] [facility] | | | | Visit | | [address] [place] | | | | | | [address] | | | | | | | | +--------+ + + + + documented as of this encounter Visit Diagnoses Not on filedocumented in this encounter"
--- OUTSIDE RECORDS SUMMARY | ~2020-08-15 | XMS | Encounter Summary ---
Demographics + + + | Address | [address] | | | [place] [address] | + + + | Home Phone [...] Team Providers + +------+ + | Care Shoeblack Name | Role | Phone | + +------+ + | Rahul Silva MD | PCP | | + +------+ + Encounter Details +--------+ + + + + | Date | Type | Department | Care Team | Description | +--------+ + + + + | 08/20/ | Orders Only | [facility] | Farrukh Acuna MD | Stage 4 chronic | | 2019 | | NEPHROLOGY [place] | [address] [place] | kidney disease (HCC) | | | | [address] | [address] [place], [place] | (Primary Dx); | | | | [address] | [address] | Persistent | | | | [place], [place] | | proteinuria; | | | | [address] | | Secondary | | | | [phone] | | hyperparathyroidism | | | | [...] 2020 | Office | | [address] [facility] | | | | Visit | | [address] [place], [place] | | | | | | [address] | | | | | | | [...]
--- OUTSIDE RECORDS SUMMARY | ~2020-08-15 | XMS | Encounter Summary ---
Demographics + + + | Address | [address] | | | [place] [address] | + + + | Home Phone [...] Team Providers + +------+ + | Care Blueprinter Name | Role | Phone | + [...] + + | 03/14/ | Refill | [facility] | Farrukh Acuna MD | Medication Refill | | 2019 | | NEPHROLOGY [place] | [address] [place] | | | | | [address] | [address] [place], [place] | | | | | [address] | [address] | | | | | [place], [place] | | | | | | [address] | | | | | | [phone] | | | +--------+--------+ + + + [...] 2020 | Office | | [address] [facility] | | | | Visit | | [address] [place], [place] | | | | | | [address] | | | | | | | [...]
--- OUTSIDE RECORDS SUMMARY | ~2020-08-15 | XMS | Encounter Summary ---
Demographics + + + | Address | [address] | | | [place] [address] | + + + | Home Phone [...] Providers + +------+ + | Care Press Department Manager Name | Role | Phone | + +------+ + | Rahul Silva MD | PCP | | + +------+ + Encounter Details +--------+ + + + + | Date | Type | Department | Care Team | Description | +--------+ + + + + | 05/27/ | Orders Only | [facility] | Conversion | | | 2018 | | [place] [place] | Transaction, | | | | | [address] | Provider Unknown | | | | | [address] [place], [place] | [phone] | | | | | [address] | (Fax) | | | | | [phone] | | | +--------+ + + + [...] [place] | | | | | | [address] | | | | | | | [...]
--- OUTSIDE RECORDS SUMMARY | ~2020-08-15 | XMS | Encounter Summary ---
Demographics + + + | Address | [address] | | | [place] [address] | + + + | Home Phone [...] Team Providers + +------+ + | Care Crushing Mill Operator Name | Role | Phone | + +------+ + | Rahul Silva MD | PCP | | + +------+ + Encounter Details +--------+ + + + + | Date | Type | Department | Care Team | Description | +--------+ + + + + | 05/27/ | Orders Only | [facility] | Conversion | | | 2019 | | NEPHROLOGY [place] | Transaction, | | | | | [address] | Provider Unknown | | | | | [address] [place] | | | | | | [address] | (Fax) | | | | | [phone] | | | +--------+ + + + [...] | | Visit | | [facility] | | | | | | [address] | | | | | | | [...]
--- OUTSIDE RECORDS SUMMARY | ~2020-08-15 | XMS | Encounter Summary ---
Demographics + + + | Address | [address] | | | [place] [address] | + + + | Home Phone | | + + + | Preferred Language | Unknown | + + + | Marital Status | Single | + + + | Latter Day Affiliation | PRO | + + + [...] [place] | | | | | [address] | | + + + + + Care Team Providers + +------+ + | Care Corn Husk Baler Name | Role | Phone | [...] Vyas | | | | | | [address] | | | | | | [place], [place] | | | | | | [address] | | | | | | [phone] | | | +--------+ + + + [...] as of this encounter Progress Notes Interface, Interior Decorator In - 12/28/2006 5:10 AM PST [facility] and [place] [address] [place], [place] [address] or January 31, 1998 GRIFFIN SMILEY MD [address] [place] [address] [place] [address] RE:PORFIRIO ZAVALA MR#:[id number] Smiley: As [...] to hear in our conversation that the [facility] does not cover Ultram in their formulary, [...] in the future. Sincerely, Nelson Melara M.D. Business Continuity Analyst, Anesthesiology [facility] MANDY/geovanni documented in this encounter Plan of Treatment Not on filedocumented as of this encounter Visit Diagnoses Not on filedocumented in this encounter"
--- OUTSIDE RECORDS SUMMARY | ~2020-08-15 | XMS | Encounter Summary ---
Demographics + + + | Address | [address] | | | [place] [address] | + + + | Home Phone [...] Team Providers + +------+ + | Care Multifocal Button Grinder Name | Role | Phone | [...] kidney | | 2019 | | NEPRHOLOGY [place] | [address] | disease, stage IV | | | | [address] | [address] [place], [place] | (severe) (HCC); | | | | [address] [place], [place] | [address] | Persistent | | | | [address] | | proteinuria; | | | | [phone] | | Secondary | | | | [...] 2019 | Office | | [address] [facility] | | | | Visit | | [address] [place], [place] | | | | | | [address] | | | | | | | [...]
--- OUTSIDE RECORDS SUMMARY | ~2020-08-15 | XMS | Encounter Summary ---
Demographics + + + | Address | [address] | | | [place] [address] | + + + | Home Phone [...] Providers + +------+ + | Care Solution Specialist Name | Role | Phone | + +------+ + | Rahul Silva MD | PCP | | + +------+ + Encounter Details +--------+ + + + + | Date | Type | Department | Care Team | Description | +--------+ + + + + | 11/05/ | Orders Only | [facility] | Farrukh Acuna MD | Essential | | 2019 | | NEPHROLOGY [place] | [address] [place] | hypertension | | | | [address] | [address] [place], [place] | (Primary Dx); Iron | | | | [address] | [address] | deficiency; Anemia | | | | [place], [place] | | of chronic kidney | | | | [address] | | failure, stage 5 | | | | [phone] | | (HCC) | +--------+ + + [...] Miscellaneous Notes Addendum Note - Kanwal Sampson Edi Architect - 10/05/2019 6:24 PM PST Addended b [...] | | | Visit | | [address] [place], [place] | | | | | | [address] | | | | | | | [...]
--- OUTSIDE RECORDS SUMMARY | ~2020-08-15 | XMS | Encounter Summary ---
Demographics + + + | Address | [address] | | | [place] [address] | + + + | Home Phone [...] [place] | | | | | [address] | | + + + + + Care Team Providers + +------+ + | Care Supervisor Fertilizer Name | Role | Phone | + +------+ + PCP | Unavailable | + +------+ + Encounter Details +--------+ + + + + | Date | Type | Department | Care Team | Description | +--------+ + + + + | 12/28/ | Procedure - | [facility] | Record, Operation | Operative Report | | 1996 | | Center at [facility] [address] | | | | | Transcribed | [facility] | | | | | | for Health and | | | | | | Healing, Building [address] | | | | | | [place], [place] | | | | | | [address] | | | | | | [phone] | | | +--------+ + + + [...] 12/28/1996 12:00 AM PSTAssociated Order(s): OPERATION RECORD [place] [address] [address], [place] [address] [facility] OPERATION RECORD Med Rec No.: [id number] Date: 12/28/96 Name: Kavon Andujar ATTENDING SURGEON: Robert Carlson M.D. Professor, Vascular rubber trimmer(S): Nick Noriega M.D. Senior C Software Developer, General Surgery POSTOPERATIVE DIAGNOSIS(ES): Left stump osteophyte. OPERATION(S) PERFORMED: Revision of left zrhpr-xji-lxcl amputation and excision of stump osteophyte. SPECIMEN(S) REMOVED: 1. Swab of pseudocapsule for culture. 2. Osteophyte to Pathology. ANESTHESIA: General endotracheal anesthesia. 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 He has developed pain over the stump. A recent CT scan showed an osteophyte growing on the end of the stump. PROCEDURE: The patient was taken to the Operating Room. General endotracheal anesthesia was performed by Anesthesia. The left boptm-zbo-wkkc amputation stump was sterilely prepped and draped [...] Unit in stable condition. Nick Noriega M.D. Senior C Software Developer, General Surgery Robert Carlson M.D. Professor, Vascular [...] [facility] | | [facility] | | [address] [place], [place] [address] | | [facility] | | | | OPERATION RECORD | | | | [facility] Rec No.: [id number] Date: 12/28/96 | | | | Name: Kavon Andujar | | | | | | ATTENDING SURGEON: Robert Carlson M.D. | | Professor, | | Vascular Surgery | | | | CHAIN MAKER LOOM CONTROL(S): Nick Noriega M.D. | | Senior C Software Developer, General Surgery | | | | POSTOPERATIVE DIAGNOSIS(ES): Left stump osteophyte. | | | | OPERATION(S) PERFORMED: Revision of left myejg-xsd-rsqr amputation | | and excision of stump osteophyte. | | | | SPECIMEN(S) REMOVED: 1. Swab of pseudocapsule for culture. | | 2. Osteophyte to Pathology. | | | | ANESTHESIA: General endotracheal anesthesia. | | | | INDICATIONS: The patient is a 56-year-old white male who | | is status post left zeioj-rco-ircz | | amputation three years ago secondary | | to embolus. He has developed pain over the stump. A recent CT scan showed | | an osteophyte growing on the end of the stump. | | | | PROCEDURE: The patient was taken to the Operating Room. | | General endotracheal anesthesia was | | performed by Anesthesia. The | | left kxqsy-hef-ougu amputation stump was sterilely prepped and draped [...] | | Nick Noriega M.D. | | Senior C Software Developer, General Surgery | | Robert Carlson M.D. | | Professor, | | Vascular Surgery | | | | DOMINIC/jc | | | | A | | | | cc: | | | + + documented in this encounter Visit Diagnoses Not on filedocumented in this encounter"
--- OUTSIDE RECORDS SUMMARY | ~2020-08-15 | XMS | Encounter Summary ---
Demographics + + + | Address | [address] | | | [place] [address] | + + + | Home Phone [...] Team Providers + +------+ + | Care Naval Aircrewman Name | Role | Phone | + [...] + + | 08/10/ | Telephone | [facility] | Brian Orosco MD | Other (orders ) | | 2019 | | VASCULAR SURGERY | [address] | | | | | [address] [place] | [place], [place] | | | | | [place], [place] | [address] | | | | | [address] | [phone] | | | | | [phone] | | | +--------+ + + + [...] transfer the call to a rolf munoz bake room worker was caller made aware that if [...] | | Visit | | [address] [place], [place] | | | | | | [address] | | | | | | | | +--------+ + + + + documented as of this encounter Visit Diagnoses Not on filedocumented in this encounter"
--- OUTSIDE RECORDS SUMMARY | ~2020-08-15 | XMS | Encounter Summary ---
Demographics + + + | Address | [address] | | | [place] [address] | + + + | Home Phone [...] Team Providers + +------+ + | Care Wardrobe Image Consultant Name | Role | Phone | + +------+ + | Rahul Silva MD | PCP | | + +------+ + Encounter Details +--------+ + + + + | Date | Type | Department | Care Team | Description | +--------+ + + + + | 05/22/ | Orders Only | [facility] | Farrukh Acuna MD | | | 2018 | | NEPHROLOGY [place] | [address] [place] | | | | | [address] [place] | [address] [place], [place] | | | | | [address] [place], [place] | [address] | | | | | [address] | | | | | | [phone] | | | +--------+ + + + [...] 2020 | Office | | [address] [facility] | | | | Visit | | [address] [place], [place] | | | | | | [address] | | | | | | | [...] | | | LAB | | | [place] | | | | | + + [...]
--- OUTSIDE RECORDS SUMMARY | ~2020-08-15 | XMS | Encounter Summary ---
Demographics + + + | Address | [address] | | | [place] [address] | + + + | Home Phone [...] Providers + +------+ + | Care Hris Coordinator Name | Role | Phone | [...] | | | | disease not | [place], | [place], [place] | | | | | on chronic | [place] [address] | [address] | | | | | dialysis | Phone: | Phone: | | | | | ([facility]) | [phone] | [phone] | | | | | Hypertension | Fax: | Fax: | | | | | , | [phone] | [phone] | | | | | unspecified | | | | | | | type | | | +--------+ + + + + + Encounter Details +--------+ + + + + | Date | Type | Department | Care Team | Description | +--------+ + + + + | 07/28/ | Orders Only | [facility] | Farrukh Acuna MD | Iron deficiency | | 2019 | | NEPHROLOGY [place] | [address] [place] | (Primary Dx); Anemia | | | | [address] [place] | [address] [place], [place] | of chronic kidney | | | | [address] [place], [place] | [address] | failure, stage 5 | | | | [address] | | ([facility]); Stage 5 | | | | [phone] | | chronic kidney | | | | | | disease not on | | | | | | chronic dialysis | | | | | | ([facility]); Secondary | | | | | | hyperparathyroidism | | | | | | ([facility]); Hypertension, | | | | [...] [facility] | | | | Visit | | [address] [place], [place] | | | | | | [address] | | | | | | | [...] until 07/28/2020 | | | | | ([facility]) Hypertension, | | | | [...] | 07/28/2020 | | | | | ([facility]) Hypertension, | | | | [...] dialysis | | | | | | ([facility]) Hypertension, | | | | [...] dialysis | | | | | | ([facility]) Hypertension, | | | | | | unspecified type | | + +------+--------+ + + | Parathyroid Hormone, | Lab | Routin | Stage 5 chronic | Expected: | | Intact | | e | kidney disease not | 09/27/2019, Expires: | | | | | on chronic dialysis | 07/28/2020 | | | | | ([facility]) Secondary | | | | | | hyperparathyroidism | | | | | | ([facility]) Hypertension, | | | | [...] chronic | Ordered: 07/28/2019 | | to [facility] | Referral | e | kidney disease not | | | Surgery | | | on chronic dialysis | | | | | | ([facility]) Hypertension, | | | | [...]
--- OUTSIDE RECORDS SUMMARY | ~2020-08-15 | XMS | Encounter Summary ---
Demographics + + + | Address | [address] | | | [place] [address] | + + + | Home Phone [...] Providers + +------+ + | Care Clinical Geneticist Name | Role | Phone | + [...] + + | 10/19/ | Documentati | [facility] | Simon, | Results (09/22/19) | | 2019 | on | NEPHROLOGY [place] | [facility] | | | | | [address] | Supervisor [employer] | | | | | [address] | | | | | | [place] | | | | | | [address] | | | | | | [phone] | | | +--------+ + + + [...] | | | Visit | | [address] [place], [place] | | | | | | [address] | | | | | | | [...]
--- OUTSIDE RECORDS SUMMARY | ~2020-08-15 | XMS | Encounter Summary ---
Demographics + + + | Address | [address] | | | [place] [address] | + + + | Home Phone [...] Organization | [facility] | | | and [place] | + [...] Team Providers + +------+ + | Care Primary Montessori Teacher Name | Role | Phone | [...] | | [address] [place] | [place] [address] | | | | | [place] [address] | | | | | | [phone] | | | +--------+ + + + [...] | | | Visit | | [address] [place] | | | | | | [address] | | | | | | | [...]
--- OUTSIDE RECORDS SUMMARY | ~2020-08-15 | XMS | Encounter Summary ---
Demographics + + + | Address | [address] | | | [place] [address] | + + + | Home Phone [...] Team Providers + +------+ + | Care Weighter Name | Role | Phone | + +------+ + PCP | Unavailable | + +------+ + Encounter Details +--------+ + + + + | Date | Type | Department | Care Team | Description | +--------+ + + + + | 05/28/ | Hospital | [facility] | Elisabeth, | CORON ATHEROSCL | | 2002 - | Encounter | [facility] [place] | MD Joshua | [facility] [place] [facility] | | | | CLINICAL DECISION | [address] [place] | | | 05/29/ | | [address] | [address] [place], [place] | | | 2002 | | [place], [place] | [address] | | | | | [address] | [phone] | | | | | [phone] | | | +--------+ + + + [...] 2020 | Office | | [address] [facility] | | | | Visit | | [address] [place] | | | | | | [address] | | | | | | | | +--------+ + + + + documented as of this encounter Visit Diagnoses + + | Diagnosis | + + | 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
--- OUTSIDE RECORDS SUMMARY | ~2020-08-15 | XMS | Encounter Summary ---
Demographics + + + | Address | [address] | | | [place] [address] | + + + | Home Phone [...] Team Providers + +------+ + | Care Architect Name | Role | Phone | + +------+ + | Mehrdad Bergman | PCP | | + +------+ + Reason for Visit +--------+--------+ + | Reason | Onset | Comments | | | Date | | +--------+--------+ + | Other | 04/06/ | FANTASMA abbott question | | | 2020 | | +--------+--------+ + Encounter Details +--------+ + + + + | Date | Type | Department | Care Team | Description | +--------+ + + + + | 04/06/ | Telephone | [facility] | Farrukh Acuna MD | Other (IV feraheme | | 2020 | | NEPHROLOGY [place] | [address] [place] | and aranesp | | | | [address] [place] | [address] [facility] [place] | question) | | | | [address] [facility], [place] | [address] | | | | | [address] | | | | | | [phone] | | | +--------+ + + + [...] Miscellaneous Notes Telephone Encounter - Trinidad Simon [employer] Strand - 04/06/2020 3:14 PM PDTSt. A IV Therapy called to verify that it is okay for patient to get his aranesp injection and hi s iv feraheme at the same time. Per Dr. Acuna this is okay. She verbalized understanding and had no further questions at this time documented in this encounter Plan of Treatment +--------+ + + + + | Date | Type | Specialty | Care Team | Description | +--------+ + + + + | 10/30/ | Virtual | Nephrology | Farrukh Acuna MD | | 2019 | Office | | [address] [facility] | | | | Visit | | [address] [place], [place] | | | | | | [address] | | | | | | | | +--------+ + + + + documented as of this encounter Visit Diagnoses Not on filedocumented in this encounter"
--- OUTSIDE RECORDS SUMMARY | ~2020-08-15 | XMS | Encounter Summary ---
Demographics + + + | Address | [address] | | | [place] [address] | + + + | Home Phone [...] Team Providers + +------+ + | Care Seed Potato Cutter Name | Role | Phone | + +------+ + | Rahul Silva MD | PCP | | + +------+ + Encounter Details +--------+ + + + + | Date | Type | Department | Care Team | Description | +--------+ + + + + | 11// | Orders Only | [facility] | Farrukh Acuna MD | Essential | | 2019 | | NEPHROLOGY [place] | [address] [place] | hypertension | | | | [address] | [address] [place], [place] | (Primary Dx); Iron | | | | [address] | [address] | deficiency; | | | | [place], [place] | | Secondary | | | | [address] | | hyperparathyroidism | | | | [phone] | | (HCC); CKD (chronic | | | | | | kidney disease) | | | | | | stage 5, GFR less | | | | | | than 15 ml/min ([facility]) | +--------+ + + + [...] 2019 | Office | | [address] [facility] [place] | | | | Visit | | [address] [place], [place] | | | | | | [address] | | | | | | | [...] | | | | | | ml/min ([facility]) | | + +------+--------+ + [...] | | | ([facility]) CKD (chronic | | | | | | kidney disease) | | | | | | stage 5, GFR less | | | | | | than 15 ml/min ([facility]) | | + +------+--------+ + [...]
--- OUTSIDE RECORDS SUMMARY | ~2020-08-15 | XMS | Encounter Summary ---
Demographics + + + | Address | [address] | | | [place] [address] | + + + | Home Phone [...] Providers + +------+ + | Care Veneer Repairer Machine Name | Role | Phone | [...] | Telephone | [facility] | Brian Orosco MD | Advice Only | | 2019 | | VASCULAR SURGERY | [address] | (surgery) | | | | [address] [place] | [place], [place] | | | | | [place], [place] | [address] | | | | | [address] | [phone] | | | | | [phone] | | | +--------+ + + + [...] transfer the call to a p rovid[employer]ie transportation job titles was caller made aware that [...] | | | Visit | | [address] [place], [place] | | | | | | [address] | | | | | | | | +--------+ + + + + documented as of this encounter Visit Diagnoses Not on filedocumented in this encounter"
--- OUTSIDE RECORDS SUMMARY | ~2020-08-15 | XMS | Encounter Summary ---
Demographics + + + | Address | [address] | | | [place] [address] | + + + | Home Phone [...] Providers + +------+ + | Care Electrical Laboratory Technician Name | Role | Phone | + +------+ + | Rahul Silva MD | PCP | | + +------+ + Encounter Details +--------+ + + + + | Date | Type | Department | Care Team | Description | +--------+ + + + + | 01/11/ | Orders Only | [facility] | Farrukh cAuna MD | Essential | | 2020 | | NEPHROLOGY [place] | [address] [place] | hypertension | | | | [address] [place] | [address] [place], [place] | (Primary Dx); | | | | [address] [place], [place] | [address] | Persistent | | | | [address] | | proteinuria; Anemia | | | | [phone] | | of chronic kidney | | | | | | failure, stage 5 | | | | | | ([facility]); CKD (chronic | | | | | [...] | [address] [facility] [place] | | | | Visit | | [facility] [place] | | | | | | [address] | | | | | | | [...] | ([facility]) CKD (chronic | | | | | [...] | ([facility]) CKD (chronic | | | | | [...] ([facility]) | + + | CKD (chronic kidney disease) stage 5, GFR less than 15 ml/min ([facility]) Chronic kidney | | disease, Stage V | + + documented in this encounter"
--- OUTSIDE RECORDS SUMMARY | ~2020-08-15 | XMS | Encounter Summary ---
Demographics + + + | Address | [address] | | | [place] [address] | + + + | Home Phone [...] Providers + +------+ + | Care Director Pediatric Name | Role | Phone | + [...] + | 09/10/ | Surgery | [facility] | Brian Orosco MD | INSERTION AV FISTULA | | 2019 | [facility] | [address] | (Right BBF) | | | | OPERATING ROOM [address] | [place], [place] | | | | | [place] | [address] | | | | | [place], [place] | [phone] | | | | | [address] | | | | | | [phone] | | | +--------+---------+ + + + [...] shunt, please contact your ph ysician at [phone]. Discharge instructions for Diagnostic Imaging sedation patients [...] . For any severe symptoms, please call [phone] or report to your nearest Emergency Department. Acetaminophen; Hydrocodone tablets or capsules Brand Names: Anexsia, Lorcet, Lorcet HD, Lorcet Plus, Lortab, Columbus, Verdrocet, Vicodin, Vi codin ES, Vicodin HP, [...] information carefully each time. Talk to your silviculture forester regarding the use of this medicine in children. Special care may be needed. What side effects may I notice from receiving this medicine? Side effects that you should report to your doctor or health emergency care tech as soon as p ossible: allergic reactions [...] attention (report to your doctor or health emergency care tech if they continue or are bothersome): constipation [...] to an official disposal site. Contact the [facility] at [phone] or your [facility] to find a site. If you [...] this medicine? Tell your doctor or health emergency care tech if your pain does not go away, [...] cuts, scrapes, or blows. Date Last Reviewed: 12/01/201619998005-0983 [employer]. [address] [place] [address]. All righ ts reserved. This information is [...] and bl ood clots prevention. Prescription for Columbus given and side effects were explained. Patient states that he also takes oxycodone at home; patient and his family were educated about taki ng oxycodone or Columbus only and not both. OTC Tylenol intake precautions also discussed. Arabella ent and his family verbalized understanding and agreeable. Opportunity to ask questions give n, all questions were answered. Leana Pimentel RN documented in this encounter H&P Notes Brian Orosco MD - 09/10/2019 12:28 PM [facility] Service: Vascular Surgery Pre-Operative History & Physical Interval Update There have been no significant clinical changes since the completion of the above H&P. Abhijit mancilla's physical assessment showed Normal appearance, alert and oriented x 3 and respiratory eff ort normal Brian Orosco MD 09/10/2019 Brian Mcneal MD - 9 11:00 AM PDT [...] CV: No peripheral edema, rate regular SKIN: Stites, warm, dry without rash/lesion MS: ROM not [...] Orosco MD - 09/10/2019 2:00 PM PDT [facility] Service: Vascular Surgery Operative Note Pre-operative Diagnosis: CKD and need for senior care dialysis access Post-operative Diagnosis: same Procedure(s): Right brachiocephalic fistula creation Surgeon: Brian Orosco MD Recreational Programs Director(s): None Anesthesia: Monitor Anesthesia care and Local [...] 2019 | Office | | [address] [facility] | | | | Visit | | [address] [place], [place] | | | | | | [address] | | | | | | | [...] Testing | 65 - 99 mg/dL | [facility] | | | POC | performed at [facility];[address] | | LABORATORY | | | | [address];[place] | | | | | | [address] | | | | + + + + + + + + | Specimen | + + | | + + + + + + + | Performing | Address | City/State/Zipcode | Phone Number | | Organization | | | | + + + + + | [facility] | [address] | [place] [address] | [phone] | + + + + + POC Glucose (09/10/2019 12:13 PM PDT) + + + + + + | Component | Value | Ref Range | Performed | Pathologist | | | | | At | Signature | + + + + + + | Glucose, | 150 (H)Comment: Testing | 65 - 99 mg/dL | [facility] | | | POC | performed at [facility];[address] | | LABORATORY | | | | [address];[place], [place] | | | | | | [address] | | | | + + + + + + + + | Specimen | + + | | + + + + + + + | Performing | Address | City/State/Zipcode | Phone Number | | Organization | | | | + + + + + | [facility] | [address] | [place] [address] | [phone] | + + + + + documented [...] One week or | | | longer, bnryox-cyt-ttzrj use of | | | at least [...]
--- OUTSIDE RECORDS SUMMARY | ~2020-08-15 | XMS | Encounter Summary ---
Demographics + + + | Address | [address] | | | [place] [address] | + + + | Home Phone [...] Providers + +------+ + | Care Site Monitor Name | Role | Phone | + [...] [address] | | | | | [place], [place] | [place], [place] | | | | | [address] | [address] | | | | | [phone] | [phone] | | | | | | | [...] [facility] | | | | Visit | | [address] [place] | | | | | | [address] | | | | | | | [...]
--- OUTSIDE RECORDS SUMMARY | ~2020-08-15 | XMS | Encounter Summary ---
Demographics + + + | Address | [address] | | | [place] [address] | + + + | Home Phone [...] Providers + +------+ + | Care School Bus Dispatcher Name | Role | Phone | [...] [address] | | | | | [place], [place] | [place], [place] | | | | | [address] | [address] | | | | | [phone] | [phone] | | | | | | | [...] | Office | | [address] [facility] | | | | Visit | | [address] [place] | | | | | | [address] | | | | | | | [...]
--- OUTSIDE RECORDS SUMMARY | ~2020-08-15 | XMS | Encounter Summary ---
Demographics + + + | Address | [address] | | | [place] [address] | + + + | Home Phone [...] Providers + +------+ + | Care Pattern Vault Clerk Name | Role | Phone | + +------+ + | Mehrdad Bergman | PCP | | + +------+ + Encounter Details +--------+ + + + + | Date | Type | Department | Care Team | Description | +--------+ + + + + | 03/14/ | Imaging | [facility] | Provider, | | | 2020 | Exam | [facility] | MD Jonathan [address] | | | | | IMAGING [address] | [address] [place] | | | | | [address] [place] | [place] [address] | | | | | [place] [address] | | | | | | [phone] | | | +--------+ + + + [...] | [address] [facility] [place] | | | | Visit | | [address] [place] | | | | | | [address] | | | | | | | [...]
--- OUTSIDE RECORDS SUMMARY | ~2020-08-15 | XMS | Encounter Summary ---
Demographics + + + | Address | [address] | | | [place] [address] | + + + | Home Phone [...] Team Providers + +------+ + | Care Bull Gang Supervisor Name | Role | Phone | + +------+ + | Rahul Silva MD | PCP | | + +------+ + Encounter Details +--------+ + + + + | Date | Type | Department | Care Team | Description | +--------+ + + + + | 10/08/ | Orders Only | [facility] | Farrukh Acuna MD | | | 2018 | | NEPHROLOGY [place] | [address] [place] | | | | | [address] [place] | [address] [place], [place] | | | | | [address] [place], [place] | [address] | | | | | [address] | | | | | | [phone] | | | +--------+ + + + [...] | | | Visit | | [address] [place], [place] | | | | | | [address] | | | | | | | [...] | | | LAB | | | [place] | | | | | + + [...]
--- OUTSIDE RECORDS SUMMARY | ~2020-08-15 | XMS | Encounter Summary ---
Demographics + + + | Address | [address] | | | [place] [address] | + + + | Home Phone [...] Providers + +------+ + | Care Well Drill Operator Name | Role | Phone | [...] | | | [address] [place] | [place] [address] | | | | | [place] [address] | | | | | | [phone] | | | +--------+ + + + [...] 2019 | Office | | [address] [facility] [place] | | | | Visit | | [facility] | | | | | | [address] | | | | | | | [...]
--- OUTSIDE RECORDS SUMMARY | ~2020-08-15 | XMS | Encounter Summary ---
Demographics + + + | Address | [address] | | | [place] [address] | + + + | Home Phone [...] [place] | | | | | [address] | | + + + + + Care Team Providers + +------+ + | Care Wrapper Stemmer Hand Name | Role | Phone | [...] [address] | | | | | | [place], [place] | | | | | | [address] | | | | | | [phone] | | | +--------+ + + + [...] as of this encounter Progress Notes Interface, Hydraulic Press Operator In - 01/03/2007 5:08 AM PST CLINIC DATE: 12/22/97 Mr. Andujar is referred by Dr. Jerry Smiley in the [place] area. He is currently followed by the Anesthesia Pain Service at [facility], and also recently has been [...] under Dr. Robert Carlson's supervision here at [facility]. His pain continued, exacerbated by [...] procedure at this time. Eric Mcclure M.D. Reinforcing Rod Layer, Department of Orthopaedics and Rehabilitation AY/sara A cc: Jerry Smiley M.D. (with letter) [address] [facility] [address] [place] [address] Robert Carlson M.D. FAX: [phone] Alina Moise M.D. FAX: [phone] [facility] ClinicFAX: [phone] documented in this encounter Plan of Treatment Not on filedocumented as of this encounter Visit Diagnoses Not on filedocumented in this encounter
--- OUTSIDE RECORDS SUMMARY | ~2020-08-15 | XMS | Encounter Summary ---
Demographics + + + | Address | [address] | | | [place] [address] | + + + | Home Phone [...] Team Providers + +------+ + | Care Recreation Therapy Teacher Name | Role | Phone | + +------+ + PCP | Unavailable | + +------+ + Encounter Details +--------+ + + + + | Date | Type | Department | Care Team | Description | +--------+ + + + + | 08/02/ | [facility] | [facility] | Nelson Lutz MD | | | 1991 | Encounter | MED CTR GENERIC OP | [address], [place] | | | | | CONV DEPT [address] | [address] | | | | | [place], | [address] | | | | | [place] [address] | | | | | | [phone] | | | +--------+ + + + [...] 2019 | Office | | [address] [facility] | | | | Visit | | [address] [place] | | | | | | [address] | | | | | | | | +--------+ + + + + documented as of this encounter Visit Diagnoses Not on filedocumented in this encounter"
--- OUTSIDE RECORDS SUMMARY | ~2020-08-15 | XMS | Encounter Summary ---
Demographics + + + | Address | [address] | | | [place] [address] | + + + | Home Phone [...] Team Providers + +------+ + | Care Cap Machine Operator Name | Role | Phone [...] | | ([facility]) | [place], [place] | | | | | | Procedures | [address] | | | | | | VAS Arm | Phone: | | | | | | Bilateral | [phone] | | | | | | Mapping For | Fax: | | | | | | Dialysis | [phone] | | +--------+--------+ + + + + [...] + + | 07/30/ | Telephone | [facility] | Trisha Conner DNP | Referral Consult | | 2019 | | CARDIOTHORACIC | [address] | | | | | SURGERY [address] | [place], [place] | | | | | [address] | [address] | | | | | [place], [place] | | | | | | [address] | | | | | | [phone] | | | +--------+ + + + [...] would like imaging to be done at [facility] documented in this encounter Plan [...] | | | Visit | | [address] [place] | | | | | | [address] | | | | | | | [...]
--- OUTSIDE RECORDS SUMMARY | ~2020-08-15 | XMS | Encounter Summary ---
Demographics + + + | Address | [address] | | | [place] [address] | + + + | Home Phone [...] Team Providers + +------+ + | Care Band Nailer Name | Role | Phone | [...] [address] | | | | | [place], [place] | [place], [place] | | | | | [address] | [address] | | | | | [phone] | [phone] | | | | | | | [...] | | | Visit | | [address] [place] | | | | | | [address] | | | | | | | [...]
--- OUTSIDE RECORDS SUMMARY | ~2020-08-15 | XMS | Encounter Summary ---
Demographics + + + | Address | [address] | | | [place] [address] | + + + | Home Phone [...] Providers + +------+ + | Care Ed Tech Name | Role | Phone | + +------+ + | Rahul Silva MD | PCP | | + +------+ + Encounter Details +--------+ + + + + | Date | Type | Department | Care Team | Description | +--------+ + + + + | 10/03/ | Orders Only | [facility] | Collin Mirza, | | | 2016 | | NEPHROLOGY [place] | TERRITORY MANAGER [employer]AL [employer] [address] | | | | | [address] [place] | [address] | | | | | [address] [place], [place] | [place] | | | | | [address] | [address] | | | | | [phone] | [phone] | | | | | | | [...] | | | Visit | | [address] [place] | | | | | | [address] | | | | | | | [...]
--- OUTSIDE RECORDS SUMMARY | ~2020-08-15 | XMS | Clinical Summary ---
Demographics + + + | Address | [address] | | | [place] [address] | + + + | Home Phone [...] Team Providers + +------+ + | Care Biblical Languages Professor Name | Role | Phone | [...] | | ([facility]), CKD (chronic | | | | | | | | kidney disease) | | | | | | | | stage 5, GFR less | | | | | | | | than 15 ml/min ([facility]) | | | | | | | + + + +---------+------+------+-------+ Active Problems + + + | Problem | Noted Date | + + + | CKD (chronic kidney disease) stage 5, GFR less than 15 ml/min | 08/26/2019 | + + + + + | Overview: Added automatically from request for surgery | | [id number] | + + + + + | [...] & Plan: Controlled on current | | [id number] yr old male with COPD, current heavy [...] note 08/01/20) | | | | | 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 | | +--------+ + + + + | 08/01/ | Documentati | Nephrology | Alfred, | Mary ([facility] | | 2019 | on | | Charlie Abdi | order and new | | | | | 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 | procrit order sent | | | [...] (Hospitalization ) | | | | | 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 | | +--------+ + + + + [...] | | ([facility]); Type 2 | | | | [...] (chronic kidney | 2019 | | | Radiology Teacher | disease) stage 5, | | | [...] | | 2019 | on | | Radiology Teacher | (interpath-05/29/2020 | | | | | [...] | | Visit | | [address] [place], [place] | | | | | | [address] | | | | | | | [...] +--------+ +---------+--------+ | MEDICARE | MEDICA | [id number] | 07/01/20 | [phone] | | Medica | | | RE | | 05-Pre | 5 | | re | | | PART A | | sent | | | | | | AND B | | | | | | + +--------+ +--------+ +---------+--------+ | [employer] | MODA | [id number] | 07/04/20 | [phone] | | Medica | | MEDICAID HMO | HEALTH | | 19-Pre | 1 | | id | | | MDCD | | sent | | | | | | [place] | | | | | | + +--------+ +--------+ +---------+--------+ | [employer] | MODA | [id number] | | [phone] | | Medica | [...] Arturo | al/Fam | | 1940 | [phone] | [place] | | | chula | | | 1 (Home) | [address] | + +--------+ +--------+ + + | Kavon Andujar | Person | Self | [birth year] | | [address] | | Art[place] | al/Fam | | 1940 | [phone] | [place], [place] | | | chula | | | 1 (Home) | [address] | + +--------+ +--------+ + + | Kavon Andujar | Person | Self | [birth year] | | [address] | | Arturo | al/Fam | | 1940 | [phone] | [place], [place] | | | chula | | | 1 (Home) | [address] | + +--------+ +--------+ + + Advance Directives + + + + + | Type | Date Recorded | Patient | Explanation | | | | Nuclear Medicine Pet Ct Technologist | | + + + + + | Power of | | | | | Care Worker | | | | + + + [...]
--- OUTSIDE RECORDS SUMMARY | ~2020-08-15 | XMS | Encounter Summary ---
Demographics + + + | Address | [address] | | | [place] [address] | + + + | Home Phone [...] Team Providers + +------+ + | Care Cemetery Counselor Name | Role | Phone | [...] + + | 08/26/ | Office | [facility] | Trisha Conner DNP | CKD (chronic kidney | | 2019 | Visit | VASCULAR SURGERY | [address] | disease) stage 5, | | | | [address] [place] | [place], [place] | GFR less than 15 | | | | [place], [place] | [address] | ml/min (HCC) | | | | [address] | | (Primary Dx) | | | | [phone] | Brian Orosco MD | | | | | | [address] | | | | | | [place], [place] | | | | | | [address] | | | | | | [phone] | | | | | | | [...] CV: No peripheral edema, rate regular SKIN: [place], warm, dry without rash/lesion MS: ROM not [...] CV: No peripheral edema, rate regular SKIN: [place], warm, dry without rash/lesion MS: ROM not [...] 2020 | Office | | [address] [facility] | | | | Visit | | [facility] | | | | | | [address] | | | | | | | [...] ([facility]) | | + +------+--------+ + + | CBC no Differential | Lab | Routin | CKD (chronic | 1 Occurrences | | | | e | kidney disease) | starting 08/26/2019 | | | | | stage 5, GFR less | until 08/26/2020 | | | | | than 15 ml/min ([facility]) | | + +------+--------+ + + documented as of this encounter Visit Diagnoses + + | Diagnosis | + + | CKD (chronic kidney disease) stage 5, GFR less than 15 ml/min ([facility]) - Primary Chronic | | kidney disease, Stage V | + + documented in this encounter"
--- OUTSIDE RECORDS SUMMARY | ~2020-08-15 | XMS | Encounter Summary ---
Demographics + + + | Address | [address] | | | [place] [address] | + + + | Home Phone [...] [address] | | | | | [place], [place] | [place], [place] | | | | | [address] | [address] | | | | | [phone] | [phone] | | | | | | | [...] | | | Visit | | [address] | | | | | | [address] | | | | | | | [...]
--- OUTSIDE RECORDS SUMMARY | ~2020-08-15 | XMS | Encounter Summary ---
Demographics + + + | Address | [address] | | | [place] [address] | + + + | Home Phone [...] [place] | | | | | [address] | | + + + + + Care Team Providers + +------+ + | Care Sheet Metal Worker Maintenance Name | Role | Phone | [...] Vyas | | | | | | [address] | | | | | | [place], [place] | | | | | | [address] | | | | | | [phone] | | | +--------+ + + + [...] as of this encounter Progress Notes Interface, Cut Filer In - 02/14/2007 3:12 AM PDT [facility] and [address] [address] or September 09, 1996 Nestor VALLES MD [address] [place] [address] RE: PORFIRIO ZAVALA MR#: [id number] Valles: Your patient, Porfirio Zavala, was seen for follow up today in the Neurosurgery Clinic at [facility]. 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 Following our initial evaluation, we recommended [...] Fellow, Neurosurgery Alina Moise M.D. Professor and Organ Pipe Maker Metal, Division of Neurosurgery Mala documented in this encounter Plan of Treatment Not on filedocumented as of this encounter Visit Diagnoses Not on filedocumented in this encounter"
--- OUTSIDE RECORDS SUMMARY | ~2020-08-15 | XMS | Encounter Summary ---
Demographics + + + | Address | [address] | | | [place] [address] | + + + | Home Phone [...] Team Providers + +------+ + | Care Brush Operator Name | Role | Phone | + +------+ + | Rahul Silva MD | PCP | | + +------+ + Encounter Details +--------+ + + + + | Date | Type | Department | Care Team | Description | +--------+ + + + + | 07/17/ | Orders Only | [facility] | Conversion | | | 2016 | | NEPHROLOGY [place] | Transaction, | | | | | [address] | Provider Unknown | | | | | [address] [place] | | | | | | [address] | (Fax) | | | | | [phone] | | | +--------+ + + + [...] | | | Visit | | [address] [facility] | | | | | | [address] | | | | | | | [...]
--- OUTSIDE RECORDS SUMMARY | ~2020-08-15 | XMS | Encounter Summary ---
Demographics + + + | Address | [address] | | | [place] [address] | + + + | Home Phone [...] Providers + +------+ + | Care Artist Agent Name | Role | Phone | + +------+ + | Rahul Silva MD | PCP | | + +------+ + Encounter Details +--------+ + + + + | Date | Type | Department | Care Team | Description | +--------+ + + + + | 02/12/ | Orders Only | [facility] | Conversion | | | 2018 | | NEPHROLOGY [place] | Transaction, | | | | | [address] | Provider Unknown | | | | | [address] [place] | | | | | | [address] | (Fax) | | | | | [phone] | | | +--------+ + + + [...] | | | Visit | | [address] [facility] | | | | | | [address] | | | | | | | [...]
--- OUTSIDE RECORDS SUMMARY | ~2020-08-15 | XMS | Encounter Summary ---
Demographics + + + | Address | [address] | | | [place] [address] | + + + | Home Phone [...] Providers + +------+ + | Care Police Inspector Name | Role | Phone | [...] | | [address] [place] | [place] [address] | | | | | [place] [address] | | | | | | [phone] | | | +--------+ + + + [...] | | | Visit | | [address] [place] | | | | | | [address] | | | | | | | [...]
--- OUTSIDE RECORDS SUMMARY | ~2020-08-15 | XMS | Encounter Summary ---
Demographics + + + | Address | [address] | | | [place] [address] | + + + | Home Phone [...] Team Providers + +------+ + | Care Vest Backer Name | Role | Phone | + +------+ + | Rahul Silva MD | PCP | | + +------+ + Encounter Details +--------+ + + + + | Date | Type | Department | Care Team | Description | +--------+ + + + + | 10/27/ | Orders Only | [facility] | Conversion | | | 2016 | | NEPHROLOGY [place] | Transaction, | | | | | [address] | Provider Unknown | | | | | [address] [place] | | | | | | [address] | (Fax) | | | | | [phone] | | | +--------+ + + + [...] | | | Visit | | [address] [facility] | | | | | | [address] | | | | | | | [...]
--- OUTSIDE RECORDS SUMMARY | ~2020-08-15 | XMS | Encounter Summary ---
Demographics + + + | Address | [address] | | | [place] [address] | + + + | Home Phone [...] [place] | | | | | [address] | | + + + + + Care Team Providers + +------+ + | Care Station Supervisor Name | Role | Phone | + +------+ + PCP | Unavailable | + +------+ + Encounter Details +--------+ + + + + | Date | Type | Department | Care Team | Description | +--------+ + + + + | 12/22/ | Results | | Other, Faculty | | | 1997 | Only | | [phone] | | +--------+ + + + + [...] | | | | | | 12/22/96 [id number] hours. | | | | | | [...] | | + +---------+ + + | [facility] DEPARTMENT OF | | | [...] | | | | | | | [id number] | | | | | | SPINE, [...]
--- OUTSIDE RECORDS SUMMARY | ~2020-08-15 | XMS | Encounter Summary ---
Demographics + + + | Address | [address] | | | [place] [address] | + + + | Home Phone [...] Providers + +------+ + | Care Repair Mechanic Name | Role | Phone | + +------+ + | Rahul Silva MD | PCP | | + +------+ + Encounter Details +--------+---------+ + + + | Date | Type | Department | Care Team | Description | +--------+---------+ + + + | 01/10/ | Office | [facility] | Farrukh Acuna MD | CKD (chronic kidney | | 2020 | Visit | NEPHROLOGY [place] | [address] [place] | disease) stage 5, | | | | [address] | [address] [place], [place] | GFR less than 15 | | | | [address] | [address] | ml/min (HCC) | | | | [place], [place] | | (Primary Dx); Anemia | | | | [address] | | of chronic kidney | | | | [phone] | | failure, stage 5 | | [...] 10/2016 with severe pneumonia, severe ZEKE; needed BINDING DYER for ~5 weeks b efore renal function recovery mid 12/2016. He was admitted to [facility] for 3 nights in July 2016 [...] background of diabetes & hyperte nsion and ZEEK's (hospitalization for C-diff and dehydration). The most likely pathology here is that of diabetic nephropathy +/- hypertensive nephrosclerosis/arteriolosclerosis. He was hospitalized in 10/2016 with severe pneumonia, severe ZEKE; needed BINDING DYER for ~5 weeks b efore renal function [...] Also: I see no need for acute BINDING DYER. I see no need to send him [...] Office | | [address] [facility] | | | | Visit | | [address] [place], [place] | | | | | | [address] | | | | | | | | +--------+ + + + + documented as of this encounter Visit Diagnoses + + | Diagnosis | + + | CKD (chronic kidney disease) stage 5, GFR less than 15 ml/min ([facility]) - Primary Chronic | | kidney [...]
--- OUTSIDE RECORDS SUMMARY | ~2020-08-15 | XMS | Encounter Summary ---
Demographics + + + | Address | [address] | | | [place] [address] | [...] + + + | Author | [facility] | + + + | Organization | [facility] | + + + | Address | Unknown | + + + | Phone | Unavailable | + + + Support + + + + + | Name | Relationship | Address | Phone | + + + + + | Darci Andujar | VALERIE | [place] | | | | | [address] | | + + + + + Care Team Providers + +------+ + | Care Director Semiconductor Name | Role | Phone | + [...] Clinic | | | | | | [facility], [address] | | | | | | [place], [place] | | | | | | [address] | | | | | | [phone] | | | +--------+ + + + [...] as of this encounter Progress Notes Interface, Silk Screen Processor In - 12/25/2006 5:00 AM [facility] DATE: 03/16/98 PLASTIC SURGERY CLINIC SUBJECTIVE: [...] in the near future. Galo Arora M.D. Rapid Transit Operator, Division of Plastic & Reconstructive Surgery AYDEE/alfred documented in this encounter Plan of Treatment Not on filedocumented as of this encounter Visit Diagnoses Not on filedocumented in this encounter"
--- OUTSIDE RECORDS SUMMARY | ~2020-08-15 | XMS | Encounter Summary ---
Demographics + + + | Address | [address] | | | [place] [address] | + + + | Home Phone [...] + | 07/06/ | Orders Only | [facility] | Farrukh Acuna MD | | | 2018 | | NEPRHOLOGY [place] | [address] [facility] [facility] [place] | | | | | [address] | [address] [place], [place] | | | | | [address] [place], [place] | [address] | | | | | [address] | | | | | | [phone] | | | +--------+ + + + [...] | | | Visit | | [address] [place], [place] | | | | | | [address] | | | | | | | [...] | | | LAB | | | Maltese | | | | | + + [...]
--- OUTSIDE RECORDS SUMMARY | ~2020-08-15 | XMS | Encounter Summary ---
Demographics + + + | Address | [address] | | | [place] [address] | + + + | Home Phone [...] Team Providers + +------+ + | Care Middleware Systems Architect Name | Role | Phone | + +------+ + | Rahul Silva MD | PCP | | + +------+ + Encounter Details +--------+ + + + + | Date | Type | Department | Care Team | Description | +--------+ + + + + | 05/27/ | Orders Only | [facility] | Farrukh Acuna MD | | | 2019 | | NEPHROLOGY [place] | [address] [place] | | | | | [address] [place] | [address] [place], [place] | | | | | [address] [place], [place] | [address] | | | | | [address] | | | | | | [phone] | | | +--------+ + + + [...] | | | Visit | | [address] [place], [place] | | | | | | [address] | | | | | | | [...] | | | LAB | | | [place] | | | | | + + [...]
--- OUTSIDE RECORDS SUMMARY | ~2020-08-15 | XMS | Encounter Summary ---
Demographics + + + | Address | [address] | | | [place] [address] | + + + | Home Phone [...] Team Providers + +------+ + | Care Jet Handler Name | Role | Phone | [...] | | | [address] [place] | [place] [address] | | | | | [place] [address] | | | | | | [phone] | | | +--------+ + + + [...] | | | Visit | | [address] [facility] | | | | | | [address] | | | | | | | [...]
--- OUTSIDE RECORDS SUMMARY | ~2020-08-15 | XMS | Encounter Summary ---
Demographics + + + | Address | [address] | | | [place] [address] | + + + | Home Phone [...] Providers + +------+ + | Care Regional Administrative Assistant Name | Role | Phone [...] | | [address] [place] | [place] [address] | | | | | [place] [address] | | | | | | [phone] | | | +--------+ + + + [...] [place] | | | | | | [address] | | | | | | | [...]
--- OUTSIDE RECORDS SUMMARY | ~2020-08-15 | XMS | Encounter Summary ---
Demographics + + + | Address | [address] | | | [place] [address] | + + + | Home Phone [...] Providers + +------+ + | Care Button Sewer Hand Name | Role | Phone | [...] + + | 10/06/ | Telephone | [facility] | Farrukh Acuna MD | Other | | 2019 | | NEPHROLOGY [place] | [address] [place] | | | | | [address] [place] | [address] [place], [place] | | | | | [address] [facility] [place] | [address] | | | | | [address] | | | | | | [phone] | | | +--------+ + + + [...] in a week.Electronically signed by Trinidad Simon Vice President Of Marketing logan curtis 10/07/2019 10:17 AM PSTTelephone Encounter [...] take medication. Please call them back at [phone]. Detailed message may be left on phone: Yes Last OV: 10/04/19 Next OV: 12/06/19 If this is a symptom based call and you were unable to immediately transfer the call to [facility] staff, was caller made aware that if at any timeshefeels it is an emergency they shoul d call 911 or go to the nearest emergency room? N/A Is safety and health manager needed: no documented in this enc ounter Plan of Treatment +--------+ + + + + | Date | Type | Specialty | Care Team | Description | +--------+ + + + + | 10/30/ | Virtual | Nephrology | Farrukh Acuna MD | | | 2019 | Office | | [address] [facility] | | | | Visit | | [address] [place], [place] | | | | | | [address] | | | | | | | | +--------+ + + + + documented as of this encounter Visit Diagnoses Not on filedocumented in this encounter"
--- OUTSIDE RECORDS SUMMARY | ~2020-08-15 | XMS | Encounter Summary ---
Demographics + + + | Address | [address] | | | [place] [address] | + + + | Home Phone [...] Providers + +------+ + | Care Stripper Printed Circuit Boards Name | Role | Phone | + +------+ + | Rahul Silva MD | PCP | | + +------+ + Encounter Details +--------+ + + + + | Date | Type | Department | Care Team | Description | +--------+ + + + + | 06/15/ | Orders Only | [facility] | Conversion | | | 2019 | | NEPHROLOGY [place] | Transaction, | | | | | [address] | Provider Unknown | | | | | [address] [place] | | | | | | [address] | (Fax) | | | | | [phone] | | | +--------+ + + + [...] | | | Visit | | [address] [place], [place] | | | | | | [address] | | | | | | | [...]
--- OUTSIDE RECORDS SUMMARY | ~2020-08-15 | XMS | Encounter Summary ---
Demographics + + + | Address | [address] | | | [place] [address] | + + + | Home Phone [...] Team Providers + +------+ + | Care Dam Worker Name | Role | Phone | [...] | | | [address] [place] | [place] [address] | | | | | [place] [address] | | | | | | [phone] | | | +--------+ + + + [...] | Visit | | [address] [facility] | | | | | | [address] | | | | | | | [...]
--- OUTSIDE RECORDS SUMMARY | ~2020-08-15 | XMS | Encounter Summary ---
Demographics + + + | Address | [address] | | | [place] [address] | + + + | Home Phone [...] [place] | | | | | [address] | | + + + + + Care Team Providers + +------+ + | Care Service Director Name | Role | Phone | [...] [place] | | | | | | [address] | | | | | | [place], [place] | | | | | | [address] | | | | | | [phone] | | | +--------+ + + + [...] as of this encounter Progress Notes Interface, Glycerin Operator In - 02/17/2007 3:02 AM PDT [facility] and [place] [address] [place], [place] [address] or August 05, 1996 RUBIA VALLES MD [address] [place] [facility] [place] [address] RE:PORFIRIO ZAVALA MR#:[id number] Valles: Mr. Porfirio Zavala returned to the [facility] Neurosurgery Clinic today for a followup visit. As you recall, he is a 56-year-old man with stump pain and phantom pain secondary to left leg mgmzk-aiu-lptj amputation. Mr. Zavala has failed numerous femoral nerve blocks, sciatic nerve blocks, and spinal cord blocks, and was at one time enrolled in the [facility] Pain Clinic. Mr. Zavala's pain is currently [...] dictating for: Alina Moise M.D. Professor and Hospital Nurse, Division of Neurosurgery MARYANA/sajan cc: Seven Khan, Ph.D. Clinical Psychologist-Neuropsychologist documented in this encounter Plan of Treatment Not on filedocumented as of this encounter Visit Diagnoses Not on filedocumented in this encounter"
--- OUTSIDE RECORDS SUMMARY | ~2020-08-15 | XMS | Encounter Summary ---
Demographics + + + | Address | [address] | | | [place] [address] | + + + | Home Phone [...] Providers + +------+ + | Care Clam Bed Worker Name | Role | Phone | [...] [address] | | | | | [place], [place] | [place], [place] | | | | | [address] | [address] | | | | | [phone] | [phone] | | | | | | | [...] | | | Visit | | [address] [place] | | | | | | [address] | | | | | | | [...]
--- OUTSIDE RECORDS SUMMARY | ~2020-08-15 | XMS | Encounter Summary ---
Demographics + + + | Address | [address] | | | [place] [address] | + + + | Home Phone [...] Team Providers + +------+ + | Care Mender Hand Name | Role | Phone | [...] + + | 12/30/ | Telephone | [facility] | Farrukh Acuna MD | Other (Medication | | 2019 | | NEPHROLOGY [place] | [address] [place] | question.) | | | | [address] [place] | [address] [facility] [place] | | | | | [address] [place], [place] | [address] | | | | | [address] | | | | | | [phone] | | | +--------+ + + + [...] Miscellaneous Notes Telephone Encounter - Trinidad Simon Turntable Engineer - 12/30/2019 4:35 PM PSTPatie nts daughter [...] time. Electronically sign ed by Trinidad Simon Turntable Engineer at 12/30/2019 4:40 PM PSTdocumented in this [...] | | | Visit | | [address] [place], [place] | | | | | | [address] | | | | | | | | +--------+ + + + + documented as of this encounter Visit Diagnoses Not on filedocumented in this encounter"
--- OUTSIDE RECORDS SUMMARY | ~2020-08-15 | XMS | Encounter Summary ---
Demographics + + + | Address | [address] | | | [place] [address] | + + + | Home Phone [...] Providers + +------+ + | Care Director Process Name | Role | Phone | + +------+ + | Rahul Silva MD | PCP | | + +------+ + Encounter Details +--------+ + + + + | Date | Type | Department | Care Team | Description | +--------+ + + + + | 02/16/ | Abstract | [facility] | Jose L Magana, | PAOLO (obstructive | | 2013 | | PULMONARY [address] | MD [address] | sleep apnea) | | | | Hector Tonya Castaneda, | [address] [place] | (Primary Dx); [place] | | | | [place] [address] | [address] | (chronic obstructive | | | | [phone] | | pulmonary disease) | | | | | | ([facility]) | +--------+ + + + + [...] 2020 | Office | | [address] [facility] | | | | Visit | | [facility] | | | | | | [address] | | | | | | | [...]
--- OUTSIDE RECORDS SUMMARY | ~2020-08-15 | XMS | Encounter Summary ---
Demographics + + + | Address | [address] | | | [place] [address] | + + + | Home Phone [...] Providers + +------+ + | Care Turbine Engine Assembler Name | Role | Phone | + +------+ + | Mehrdad Bergman | PCP | | + +------+ + Encounter Details +--------+ + + + + | Date | Type | Department | Care Team | Description | +--------+ + + + + | 03/28/ | Orders Only | [facility] | Farrukh Acuna MD | Essential | | 2020 | | NEPHROLOGY [place] | [address] [place] | hypertension | | | | [address] | [address] [place], [place] | (Primary Dx); Anemia | | | | [address] | [address] | of chronic kidney | | | | [place], [place] | | failure, stage 5 | | | | [address] | | (HCC); Persistent | | | | [phone] | | proteinuria; CKD | | | | | | (chronic kidney | | | | | | disease) stage 5, | | | | | | GFR less than 15 | | | | | | ml/min ([facility]) | +--------+ + + + + Social [...] | [address] [facility] [facility] [place] | | | | Visit | | [address] [facility] [place] | | | | | | [address] | | | | | | | [...] | 03/28/2021 | | | | | ([facility]) Persistent | | | | | | proteinuria CKD | | | | | | (chronic kidney | | | | | | disease) stage 5, | | | | | | GFR less than 15 | | | | | | ml/min ([facility]) | | + +------+--------+ + + | CBC with | Lab | Routin | Essential | weekly for 3 | | Differential | | e | hypertension Anemia | Occurrences starting | | | | | of chronic kidney | 03/28/2020 until | | | | | failure, stage 5 | 03/28/2021 | | | | | ([facility]) Persistent | | | | | | proteinuria CKD | | | | | | (chronic kidney | | | | | | disease) stage 5, | | | | | | GFR less than 15 | | | | | | ml/min ([facility]) | | + +------+--------+ + + | Renal Function Panel | Lab | Routin | Essential | Expected: | | | | e | hypertension Anemia | 05/28/2020, Expires: | | | | | of chronic kidney | 03/28/2021 | | | | | failure, stage 5 | | | | | | ([facility]) Persistent | | | | | | proteinuria CKD | | | | | | (chronic kidney | | | | | | disease) stage 5, | | | | | | GFR less than 15 | | | | | | ml/min ([facility]) | | + +------+--------+ + + | CBC with | Lab | Routin | Essential | Expected: | | Differential | | e | hypertension Anemia | 05/28/2020, Expires: | | | | | of chronic kidney | 03/28/2021 | | | | | failure, stage 5 | | | | | | ([facility]) Persistent | | | | | [...] | ([facility]) Persistent | | | | | [...] | ([facility]) Persistent | | | | | | proteinuria CKD | | | | | | (chronic kidney | | | | | | disease) stage 5, | | | | | | GFR less than 15 | | | | | | ml/min ([facility]) | | + +------+--------+ + + | Parathyroid Hormone, | Lab | Routin | Essential | Expected: | | Intact | | e | hypertension Anemia | 05/28/2020, Expires: | | | | | of chronic kidney | 03/28/2021 | | | | | failure, stage 5 | | | | | | ([facility]) Persistent | | | | | [...] | ([facility]) Persistent | | | | | [...]
--- OUTSIDE RECORDS SUMMARY | ~2020-08-15 | XMS | Encounter Summary ---
Demographics + + + | Address | [address] | | | [place] [address] | + + + | Home Phone [...] [place] | | | | | [address] | | + + + + + Care Team Providers + +------+ + | Care Bill Collector Name | Role | Phone | [...] | | | | | | [facility], [address] [place] [address] | | | | | | [place], [place] | | | | | | [address] | | | | | | [phone] | | | +--------+ + + + [...] as of this encounter Discharge Summaries Interface, [employer] In - 12/22/2006 3:12 AM PST [place] [address] [place], [place] [address] [facility] MEDICAL SUMMARY OF HOSPITALIZATION Med Rec No.: [id number] Admission Date: 04/06/98 Name: Kavon Andujar Discharge Date: 04/08/98 STAFF PHYSICIAN: Galo Arora M.D. Lead Nitrate Processor, Division of Plastic & Reconstructive Surgery PRINCIPAL [...] M.D. Resident, Plastic Surgery Galo Arora M.D. Lead Nitrate Processor, Division of Plastic & Reconstructive Surgery QIANA/charo P cc: GRIFFIN ASHER MD [address] [facility] [place] [address] documented in this encounter Plan of Treatment Not on filedocumented as of this encounter Visit Diagnoses Not on filedocumented in this encounter"
--- OUTSIDE RECORDS SUMMARY | ~2020-08-15 | XMS | Encounter Summary ---
Demographics + + + | Address | [address] | | | [place] [address] | + + + | Home Phone [...] [place] | | | | | [address] | | + + + + + Care Team Providers + +------+ + | Care Manager Of Procurement Name | Role | Phone | + [...] as of this encounter Progress Notes Interface, Voice Coach In - 11/10/2006 2:27 AM PSTCLINIC DATE: [...] he embarked on this. Galo Arora M.D. Traffic Expert, Plastic and Reconstructive Surgery / [id number] / [id number] / 700 cc: Nelson Melara M.D. Anesthesiology. [facility]. [id number] signed by Interface, Voice Coach In at 11/10/2006 2:27 AM PSTdocume nted in this encounter Plan of Treatment Not on filedocumented as of this encounter Visit Diagnoses Not on filedocumented in this encounter"
--- OUTSIDE RECORDS SUMMARY | ~2020-08-15 | XMS | Encounter Summary ---
Demographics + + + | Address | [address] | | | [place] [address] | + + + | Home Phone | | + + + | Preferred Language | Unknown | + + + | Marital Status | Single | + + + | Zoroastrian Affiliation | PRO | + + + [...] [place] | | | | | [address] | | + + + + + Care Team Providers + +------+ + | Care Lube Man Name | Role | Phone | + +------+ + PCP | Unavailable | + +------+ + Encounter Details +--------+ + + + + | Date | Type | Department | Care Team | Description | +--------+ + + + + | 03/30/ | Results | | Other, Faculty | | | 1992 | Only | | [phone] | | +--------+ + + + + [...] | | + +---------+ + + | [facility] DEPARTMENT OF | | | | [...] | | | | | | | [id number] AND | | | | | | [...] | | + +---------+ + + | [facility] DEPARTMENT OF | | | | [...] | | + +---------+ + + | [facility] DEPARTMENT OF | | | | [...] | | + +---------+ + + | [facility] DEPARTMENT OF | | | | [...] | | | | | | | [id number] | | | | | | CHEST: [...] | | + +---------+ + + | [facility] DEPARTMENT OF | | | | [...] | | | | | | | [id number] | | | | | | CHEST: [...] | | + +---------+ + + | [facility] DEPARTMENT OF | | | | [...] | | | | | | | [id number], | | | | | | PORTABLE, [...] | | + +---------+ + + | [facility] DEPARTMENT OF | | | | [...] | | | | | | | [id number], | | | | | | PORTABLE, [...] and | | | | | | [employer] Ganzcatheter are | | | | | [...] | | + +---------+ + + | [facility] DEPARTMENT OF | | | | [...] | | | | | | [facility]. | | | | | | Bilateral [...] | | | | | | a [employer] catheter | | | | | | [...] | | | | placement of a [employer] | | | | | | catheter. CHEST, | | | | | | SINGLE AP PORTABLE: | | | | | | 03-31-93 AT 1000 HOURS | | | | | | FINDINGS: Since the | | | | | | prior study, the | | | | | | [employer] catheter has | | | | | [...] IMPRESSION: | | | | | | [employer] catheter | | | | | | [...] The | | | | | | [employer] catheter | | | | | | [...] and | | | | | | [employer] catheter | | | | | | [...] endotracheal | | | | | | tube,[employer] catheter | | | | | | [...] | | | | | | a [employer] catheter | | | | | | [...] | | | | placement of a [employer] | | | | | | catheter. CHEST, | | | | | | SINGLE AP PORTABLE: | | | | | | 03-31-93 AT 1000 HOURS | | | | | | FINDINGS: Since the | | | | | | prior study, the | | | | | | [employer] catheter has | | | | | [...] IMPRESSION: | | | | | | [employer] catheter | | | | | | [...] The | | | | | | [employer] catheter | | | | | | [...] and | | | | | | [employer] catheter | | | | | | [...] endotracheal | | | | | | tube,[employer] catheter | | | | | | [...] | | | | | | a [employer] catheter | | | | | | [...] | | | | placement of a [employer] | | | | | | catheter. CHEST, | | | | | | SINGLE AP PORTABLE: | | | | | | 03-31-93 AT 1000 HOURS | | | | | | FINDINGS: Since the | | | | | | prior study, the | | | | | | [employer] catheter has | | | | | [...] IMPRESSION: | | | | | | [employer] catheter | | | | | | [...] The | | | | | | [employer] catheter | | | | | | [...] and | | | | | | [employer] catheter | | | | | | [...] endotracheal | | | | | | tube,[employer] catheter | | | | | | [...] | | + +---------+ + + | [facility] DEPARTMENT OF | | | | [...] | | | | | | a [employer] catheter | | | | | | [...] | | | | placement of a [employer] | | | | | | catheter. CHEST, | | | | | | SINGLE AP PORTABLE: | | | | | | 03-31-93 AT 1000 HOURS | | | | | | FINDINGS: Since the | | | | | | prior study, the | | | | | | [employer] catheter has | | | | | [...] IMPRESSION: | | | | | | [employer] catheter | | | | | | [...] The | | | | | | [employer] catheter | | | | | | [...] and | | | | | | [employer] catheter | | | | | | [...] endotracheal | | | | | | tube,[employer] catheter | | | | | | [...] | | + +---------+ + + | [facility] DEPARTMENT OF | | | | [...] | | | | | | a [employer] catheter | | | | | | [...] | | | | placement of a [employer] | | | | | | catheter. CHEST, | | | | | | SINGLE AP PORTABLE: | | | | | | 03-31-93 AT 1000 HOURS | | | | | | FINDINGS: Since the | | | | | | prior study, the | | | | | | [employer] catheter has | | | | | [...] IMPRESSION: | | | | | | [employer] catheter | | | | | | [...] The | | | | | | [employer] catheter | | | | | | [...] and | | | | | | [employer] catheter | | | | | | [...] endotracheal | | | | | | tube,[employer] catheter | | | | | | [...] | | + +---------+ + + | [facility] DEPARTMENT OF | | | | [...] | | | | | | a [employer] catheter | | | | | | [...] | | | | placement of a [employer] | | | | | | catheter. CHEST, | | | | | | SINGLE AP PORTABLE: | | | | | | 03-31-93 AT 1000 HOURS | | | | | | FINDINGS: Since the | | | | | | prior study, the | | | | | | [employer] catheter has | | | | | [...] IMPRESSION: | | | | | | [employer] catheter | | | | | | [...] The | | | | | | [employer] catheter | | | | | | [...] and | | | | | | [employer] catheter | | | | | | [...] endotracheal | | | | | | tube,[employer] catheter | | | | | | [...] | | + +---------+ + + | [facility] DEPARTMENT OF | | | | [...] | | | | | | a [employer] catheter | | | | | | [...] | | | | placement of a [employer] | | | | | | catheter. CHEST, | | | | | | SINGLE AP PORTABLE: | | | | | | 03-31-93 AT 1000 HOURS | | | | | | FINDINGS: Since the | | | | | | prior study, the | | | | | | [employer] catheter has | | | | | [...] IMPRESSION: | | | | | | [employer] catheter | | | | | | [...] The | | | | | | [employer] catheter | | | | | | [...] and | | | | | | [employer] catheter | | | | | | [...] endotracheal | | | | | | tube,[employer] catheter | | | | | | [...] | | + +---------+ + + | [facility] DEPARTMENT OF | | | | | RADIOLOGY | | | | + +---------+ + + documented in this encounter Visit Diagnoses Not on filedocumented in this encounter"
--- OUTSIDE RECORDS SUMMARY | ~2020-08-15 | XMS | Encounter Summary ---
Demographics + + + | Address | [address] | | | [place] [address] | + + + | Home Phone [...] Team Providers + +------+ + | Care Youth Specialist Name | Role | Phone | [...] | | | hip | [address] | | | | | | fracture, | [place] | | | | | | initial | [place], [place] | | | | | | encounter | [address] | | | | | | ([facility]) | Phone: | | | | | | Status post | [phone] | | | | | | above knee | Fax: | | | | | | amputation | [phone] | | | | | | of [...] + + | 08/03/ | Hospital | [facility] | Jose Andrade | Laceration of left | | 2016 - | Encounter | MED [facility] SUR[facility] | MD Mehrdad [address] | ear, initial | | | | [address] [place] | [address] [place] | encounter (Primary | | 08/05/ | | [place] [address] | [place] [address] | Dx); Closed left hip | | 2015 | | [phone] | [phone] | fracture, initial | | | | | | encounter ([facility]); | | | | | Linda Steiner, | Fall, initial | | | | | DO [address] | encounter; Acute | | | | | [address] [place], | pain; Hyperkalemia; | | | | | [place] [address] | CKD (chronic kidney | | | | | [phone] | disease), | | | | | [...] | | | | | | type ([facility]); Insulin | | | | | | dependent type 2 | | | | | | diabetes mellitus, | | | | | | uncontrolled (HCC); | | | | | | Intertrochanteric | | | | | | fracture of left | | | | | | hip, closed, initial | | | | | | encounter ([facility]); | | | | | | PAOLO on CPAP; Status | | | | | | post fall; Status | | | | | | 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 | | | | | | lower extremity | | | | | | ([facility]); Phantom limb | | | | | | pain ([facility]) | +--------+ + + + + [...] Bolivar MD - 08/05/2016 1:07 PM PDT [facility] DISCHARGE SUMMARY Pt. Name/Age/: Porfirio Zavala [...] mg by mouth nightly. aka: LIPITOR Cholecalciferol 41208 units Caps Take 50,000 Units by mouth [...] information: [address] [place] [id number] PENDING RESULTS: HOSPITAL COURSE: Please refer to [...] signed by: Petey Bolivar MD, 08/05/2016 13:07 [facility] Portions of this chart may have been created with [employer] voice recognition software. Occasi onal wrong-word or sound-alike substitutions may have occurred due to the inherent vanegas itations of voice recognition software. Please read the chart carefully and recognize, using context, where these substitutions have occurred documented in this encounter Discharge Instructions Instructions Maritza Devries RN - 08/05/2016Please call Dr. Tobar at [phone] for an y questions or concerns regarding [...] 0 | | | | (VITAMIN D-3) [address] | mouth Every 3 | | | [...] be differ ent from the original. [facility] Hospitalist Progress Note Porfirio Zavala is [...] Clear Clear PH UA 5.0 5.0-8.0 Specific Raymond 1.015 1.001-1.030 PROTEIN UA 100 mg/dL (A) [...] as outlined above. Sonu Michel 08/04/2016 11:33 [facility] Yuriy Farrell RRT - 08/04/2016 8:42 [...] might be different f rom the original. [facility] HISTORY & PHYSICAL Patient: Porfirio Zavala : 1940: Age: 76 y.o. MedRec: [id number] PCP: Hardik Coyne MD Admission date: 08/03/2016 [...] phantom pain who was transferred here from [facility] emergency room with above presentation. Patient was accepted for transfer by Dr. Mondragon of ENT and Dr. Robison of orthopedic surgery as patient's daughter requested high level of care for plastic surgery consultation and repair of his left ear. 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 Workup on blood work at [facility] showed mildly elevated potassium at 5.4, but [...] [place] Zavala, her contact numbers are: (h) [phone] & (c) [phone] ALLERGIES: No Known Allergies VITAL SIGNS: Temp: [...] CKTOTAL No results for input(s): PHART, PO2ART, GOM5KAK, JSX3LBJ, BEART, D0NVMWIG in the last 168 h ours. No results for input(s): SPECSOURCE, PHPOCB, HCO3, TCO2, BEART, BE, XFGU7VCX in the last 16 8 hours. Invalid input(s): OHSHZ5YI, NTNT8MT (dot meylab) Xray Results: No results found. I reviewed imaging done at [facility]: CXR showed no acute disease. CT pelvis [...] EKG Results (I reviewed EKGs) 1st at [facility]: Sinus bradycardia, rate 59 bpm, otherwi se normal EKG. 2nd at [place]: Normal sinus rhythm, rate 78 bpm, otherwise [...] signed by: Linda Steiner DO 08/03/2016 23:57 [facility] Dot phrase reference: VSHOSP (VS in table, last 24 hours) MEYLAB (various labs to pull in) DT (date and time) LABRCNTIP[K:3,Na:3 (last 3 sets of labs using potassium and sodium as examples) HGB HCT PLT INR GLU POCGLU Na K BUN CREA, CALCIUM TROPONINI BNP DIGOXIN Portions of this chart may have been created with [employer] voice recognition software. Occasi onal wrong-word or sound-alike substitutions may have occurred due to the inherent vanegas itations of voice recognition software. Please read the chart carefully and recognize, using context, where these substitutions have occurred documented in this encounter Consult Notes Adonay Robison MD - 08/04/2016 10:15 AM PDT [place] [address] CONSULTATION ADONAY ROBISON MD Patient: PORFIRIO ZAVALA Admitting: LINDA STEINER MR #: [id number] LOC: PT TYPE: Adm Date: 08/03/2016 : 1940 DATE OF CONSULTATION AND DATE OF DICTATION: 08/04/2016 IDENTIFICATION: Porfirio Zavala is a 76-year-old male who resides with his daughter in the [facility]. CHIEF COMPLAINT: Fall off wheelchair with left [...] while at home, necessitating transfe r to [facility] in [place] for evaluation. He was found to have a left ear l aceration, a superficial skin tear on the left wrist and on CT scan was noted to have a no ndisplaced unicortical left hip intertrochanteric fracture. He also was found to have an e levated potassium of 5.6 and the decision was made to transfer the patient to [facility] in [place] for a more in depth evaluation and appropriate care, including re pair of the ear by ENT surgeon, Dr. Tobar. Consequently, the patient was transferred to [facility] to [facility] where indeed, Dr. Tobar came and repaired his ear laceration in the emergency room. [facility] orthopedic consultation was requested. Today, the [...] could be obtained with an orthopedist in [place], or he may c ertainly come back to my office for this followup as well. I will follow the patient with you as needed. ADONAY ROBISON MD Dictated by ADONAY ROBISON MD 08/04/2016 10:15:13 Transcribed on 08/04/2016 10:52:[address] art# [id number] Confirmation #: [id number] cc: HARDIK COYNE MD donay Robison MD [...] might be differe nt from the original. [facility] Emergency Department Encounter Note [address] [place] [address] PCP:Hardik Coyne MD [phone] CHIEF COMPLAINT: Chief Complaint Patient presents with Head Injury Ear Laceration ED Room: ED14/ED14 HPI Porfirio Zavala is a 76 y.o. male who presents to the Emergency Department Patient presents as a referral from [facility]. He's been accepted by Dr. tobar of ENT and Dr. Robison of orthopedic surgery. He has a cavox-zlw-hntd amputation and fell out of his wheelchair earlier today. He struck his left hip and left side of his head against the ground. His family requested he be coker sferred to this hospital for plastic surgery consultation and repair of his left ear. I acc epted call from [facility] emergency department they confirmed the story dated imaging he has a left intercurrent trochanteric hip fracture as well as a negative CT scan of the head . He was noted to be mildly hyperkalemic at [facility]. On arrival he complains of left hip [...] were reviewed along with EMS notes and longterm record s if applicable. (See chart for details) Medications and Allergy list reviewed. Nurses note and old records were reviewed The patient was seen and examined, For persistent pain he receives IV narcotic pain medication morphine 3 doses. Imaging from [facility] reviewed no skull fracture or intracranial bleed [...] 2. Closed left hip fracture, initial encounter ([facility]) S72.002A 820.8 3. Fall, initial encounter W19.XXXA E888.9 4. Acute pain R52 338.19 5. Hyperkalemia E87.5 276.7 6. CKD (chronic kidney disease), unspecified stage N18.9 585.9 7. Intractable pain R52 780.96 Administrations This Visit albuterol 2.5 mg/3 mL nebulizer solution 5 mg Admin Date Action Dose Route Administered By 08/03/2016 Given 5 mg Nebulization Agustin Gordon, TIE WORKER bacitracin topical ointment Admin Date Action Dose [...] Given 4 mg Intravenous Jose Calhoun RN ksedcnn-kqhtxuixye-moqrplfdq pertussis (ADACEL, Tdap) vaccine injection 0.5 mL [...] i nstructions. lan of [place] Brie Bauer, TIE WORKER - 08/05/2016 12:55 PM PDTProblem: Patient Care [...] clear and diminished. Anticipate discharge. 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 Objective: Treatment Provided: Pt and [...] from multiple contributors. Transfers Bed-Chair, Level of Bleckley: contact guard assist Chair-Bed, Level of Bleckley: contact guard assist Qxm-Jwdnf-Lcm, Assistive Device: none Impairments: strength decreased, impaired balance, pain Bed Mobility Supine to Sit, Level of Bleckley: independent Sit to Supine, Level of Bleckley: independent Wheelchair Mobility Pt able to demo safe and independent ability to self propel manual wheelchair in room and hallway. ROM B UEs and R LE grossly WFL; L LE not tested due to recent fracture. Strength B UEs and R LE grossly WFL; L LE not tested due to recent fracture. STG GOALS Bleckley Level: minimum assist (75% patient effort) Assistive Device: none Time to Achieve: 2 days Goal Status: met Transfer Training Goal, Activity Type: bed to chair /chair to bed Bleckley Level: minimum assist (75% patient effort) Assistive [...] S72.002A Closed left hip fracture, initial encounter ([facility]) W19.XXXA Fall, initial encounter R52 Acute pain E87.5 Hyperkalemia N18.9 CKD (chronic kidney disease), unspecified stage R52 Intractable pain E87.5 Acute hyperkalemia N18.3 Chronic kidney disease (CKD), stage 3 (moderate) J44.9 Chronic obstructive pulmonary disease, unspecified COPD type ([facility]) E11.65, Z79.4 Insulin dependent type 2 diabetes mellitus, uncontrolled ([facility]) S72.142A Intertrochanteric fracture of left hip, closed, initial encounter ([facility]) G47.33 PAOLO on CPAP Z91.89 Status post fall Z89.612 Status post above knee amputation of left lower extremity ([facility]) G54.7 Phantom limb pain ([facility]) Date of Onset: Past Medical History Diagnosis Date PAOLO (obstructive sleep apnea) On CPAP plus 4 L of oxygen at night COPD (chronic obstructive pulmonary disease) ([facility]) Diabetes mellitus, type II ([facility]) Constipation Epigastric pain Stump pain ([facility]) Renal insufficiency Obesity Iron deficiency anemia Hypertension Dyslipidemia Lower extremity embolism ([facility]) Phantom pain following amputation of lower limb ([facility]) Pain of amputation stump of left lower extremity ([facility]) Past Surgical History Procedure Laterality Date Amputation [...] phantom pain who was transferred here from [facility] emergency room d/t ear laceration that needs [...] Porfirio Zavala 3 times/wk until discharge [facility] or discharged from the hospital. Occupational Therapy [...] to f/u with Jonas next Friday in [place] to have sutures mello alexus. Skin tear/wound [...] S72.002A Closed left hip fracture, initial encounter ([facility]) W19.XXXA Fall, initial encounter R52 Acute pain E87.5 Hyperkalemia N18.9 CKD (chronic kidney disease), unspecified stage R52 Intractable pain E87.5 Acute hyperkalemia N18.3 Chronic kidney disease (CKD), stage 3 (moderate) J44.9 Chronic obstructive pulmonary disease, unspecified COPD type ([facility]) E11.65, Z79.4 Insulin dependent type 2 diabetes mellitus, uncontrolled ([facility]) S72.142A Intertrochanteric fracture of left hip, closed, initial encounter ([facility]) G47.33 PAOLO on CPAP Z91.89 Status post fall Z89.612 Status post above knee amputation of left lower extremity ([facility]) G54.7 Phantom limb pain ([facility]) Date of Onset: Past Medical History Diagnosis Date PAOLO (obstructive sleep apnea) On CPAP plus 4 L of oxygen at night COPD (chronic obstructive pulmonary disease) ([facility]) Diabetes mellitus, type II ([facility]) Constipation Epigastric pain Stump pain (HCC) Renal [...] phantom pain who was transferred here from [facility] emergency room d/t ea r laceration that [...] from multiple contributors. Transfers Bed-Chair, Level of Bleckley: minimum assist (75% patient effort), verbal cues required Chair-Bed, Level of Bleckley: minimum assist (75% patient effort), verbal cues required Kms-Wtzwu-Eat, Assistive Device: none Impairments: strength decreased, impaired balance, pain ROM B UEs and R LE grossly WFL; L LE not tested due to recent fracture. Strength B UEs and R LE grossly WFL; L LE not tested due to recent fracture. STG GOALS Bleckley Level: minimum assist (75% patient effort) Assistive Device: none Time to Achieve: 2 days Goal Status: new Transfer Training Goal, Activity Type: bed to chair /chair to bed Bleckley Level: minimum assist (75% patient effort) Assistive [...] eval completed. Case d/w RN and case sealer. Contacted wheelchair r ep (Petey) who says [...] safe manner Outcome: Unchanged Patient lives in [place], [place] with his daughter [place]. [place] states [...] This CM called [facility] in [place] and gave pipeline construction inspector , Argenis, the story about this patient. 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 She states that if a manual w/c canno t be obtained, she will get one Friday at [facility] and "I will just be with him [...] face sheet to be fa xed to [phone]. Faxed face sheet. Electronically signed by: POLI [...] Team Goals & Evaluation PROBLEM-RELATED GOALS: 1. Porifrio will maintain adequate oxygenation with supplemental oxygen, [...] be removed on 08/12 phylicia Muhammad in [place]. Pt is alert and oriented, forgetful at [...] Tobar MD - 08/03/2016 10:51 PM PDT [address] [address] OPERATIVE REPORT STEVEN TOBAR MD Patient: PORFIRIO ZAVALA Admitting: LINDA Salgado OBDULIA MR #: [id number] LOC: PT TYPE: Adm Date: 08/03/2016 : [...] also hurt the left hip, and in [place] the laceration was felt to be too complex to repair in the emergency room by the emergency room physician . Also, the patient with complaint of the left hip was noted to have an intertrochanteric fracture, but nondisplaced. The patient was accepted at [facility] fo r repair of the laceration and also a consultation by orthopedics to look at his fractured hip. The patient has had evaluation of his head and does not have any intracranial bleedin g. The patient is a diabetic and is on Plavix and aspirin and the rest of his history mraya t came with the patient was reviewed. [...] the laceration, p art of it being yotlnqr-tji-selxeag the root of the ear, was 5.5 [...] his could be carried out down in [place] with Dr. Muhammad to save a long trip up to this area a week from Friday when they should be removed. They can call our office and arrange ments will be made for removal of the sutures if not able to do it down in the [facility]. The estimated blood loss from the current part was around 1-2 mL. The prognosis of th is area immediate and remote is good. STEVEN TOBAR MD Dictated by STEVEN TOBAR MD 08/03/2016 22:51:04 Transcribed on 08/04/2016 05:51:45 by blessing job# [id number] Confirmation #: [id number] cc: HARDIK COYNE MD D Triage Notes - Jose Calhoun RN - 08/03/2016 8:05 PM PDTPatient [facility] [place] [facility] and ear laceration that needs to [...] 2019 | Office | | [address] [facility] | | | | Visit | | [address] [place], [place] | | | | | | [id number] | | | | | | | [...] until | | | | | encounter ([facility]) | 08/04/2016 | | | | | [...] | | | | | | encounter ([facility]) | | | | | | Status [...] [address] | [place] | [phone] | | [facility] | | [address] | | | - LABORATORY | | [...] [facility] | | | | | | [facility] | | | | | | [...] mL/min/1.73m2 | [facility]. [facility] | | | Slovenian | RATE,ESTIMATED | | MEDICAL | | | | mL/min/1.46a5Hppp than | | CENTER - | | [...] [address] | [place] | [phone] | | [facility] | | [address] | | | - LABORATORY | | [...] ST. | [address] | [place], [place] | [phone] | | [facility] | | [address] | | | - LABORATORY | | [...] [address] | [place] | [phone] | | [facility] | | [address] | | | - LABORATORY | | [...] + | [facility] | [address] | [place] | [phone] | | [facility] | | [address] | | | - LABORATORY | | [...] [address] | [place] | [phone] | | [facility] | | [address] | | | - LABORATORY | | [...] [address] | [place] | [phone] | | [facility] | | [address] | | | - LABORATORY | | [...] + | [facility] | [address] | [place] | [phone] | | [facility] | | [address] | | | - LABORATORY | | [...] [address] | [place] | [phone] | | [facility] | | [address] | | | - LABORATORY | | [...] + | [facility] | [address] | [place] | [phone] | | [facility] | | [address] | | | - LABORATORY | | [...] + | [facility] | [address] | [place], [place] | [phone] | | [facility] | | [address] | | | - LABORATORY | | [...] | mL/min/1.73m2 | [facility] | | | [place]ian | RATE,ESTIMATED | | MEDICAL | | | | mL/min/1.41q7Kesv than | | CENTER - | | [...] [address] | [place] | [phone] | | [facility] | | [address] | | | - LABORATORY | | [...] - 1.030 | [facility] | | | [place], | | | [facility] | | [...] | | Urine | | | [facility]. [facility] | | [...] [address] | [place] | [phone] | | [facility] | | [address] | | | - LABORATORY | | [...] | | | | AYAH RON MD ([id number]) | | | | | | on [...] + | [facility] | [address] | [place] | [phone] | | [facility] | | [address] | | | - LABORATORY | | [...] [address] | [place] | [phone] | | [facility] | | [address] | | | - LABORATORY | | [...] [address] | [place] | [phone] | | [facility] | | [address] | | | - LABORATORY | | [...] + | [facility] | [address] | [place] | [phone] | | [facility] | | [address] | | | - LABORATORY | | [...] [address] | [place] | [phone] | | [facility] | | [address] | | | - LABORATORY | | [...] | [facility] | | | [place]ian | RATE,ESTIMATED | | MEDICAL | | | | mL/min/1.21j7Voue than | | CENTER - | | [...] + | [facility] | [address] | [place] | [phone] | | [facility] | | [address] | | | - LABORATORY | | [...] | | | | | | | 3744-7022 Use NIGHT DOSE for | | | | | | | doses scheduled: HS, 3AM, | | | | | | | Nighttime 6046-6424, | | | | | | + [...] | +---+---+ + +-------+ +---------+---+ + | ziwknbt-gsvqztbged-knltubqkx | Given | 08/03/20 | 0.5 mLs [...]
--- OUTSIDE RECORDS SUMMARY | ~2020-08-15 | XMS | Encounter Summary ---
Demographics + + + | Address | [address] | | | [place] [address] | + + + | Home Phone [...] Team Providers + +------+ + | Care Slash Trimmer Name | Role | Phone | [...] [address] | | | | | [place], [place] | [place], [place] | | | | | [address] | [address] | | | | | [phone] | [phone] | | | | | | | [...] | | | Visit | | [address] | | | | | | [address] | | | | | | | [...]
--- OUTSIDE RECORDS SUMMARY | ~2020-08-15 | XMS | Encounter Summary ---
Demographics + + + | Address | [address] | | | [place] [address] | + + + | Home Phone [...] Team Providers + +------+ + | Care Rosin Barrel Filler Name | Role | Phone | + +------+ + | Rahul Silva MD | PCP | | + +------+ + Encounter Details +--------+ + + + + | Date | Type | Department | Care Team | Description | +--------+ + + + + | 08/19/ | Orders Only | [facility] | Farrukh Acuna MD | | | 2018 | | NEPHROLOGY [place] | [address] [place] | | | | | [address] [place] | [address] [place], [place] | | | | | [address] [place], [place] | [address] | | | | | [address] | | | | | | [phone] | | | +--------+ + + + [...] | | | Visit | | [address] [place], [place] | | | | | | [address] | | | | | | | [...]
--- OUTSIDE RECORDS SUMMARY | ~2020-08-15 | XMS | Encounter Summary ---
Demographics + + + | Address | [address] | | | [place] [address] | + + + | Home Phone [...] Team Providers + +------+ + | Care Buckle Assembler Name | Role | Phone | [...] | | | stage 5, GFR | [address] | | | | | | less than | Phone: | | | | | | 15 ml/min | [phone] | | | | | | (HCC) | Fax: | | | | | | Procedures | [phone] | | | | | | VAS [...] | | | stage 5, GFR | [address] | | | | | | less than | Phone: | | | | | | 15 ml/min | [phone] | | | | | | ([facility]) | Fax: | | | | | | Procedures | [phone] | | | | | | VAS [...] + + | 10/20/ | Hospital | [facility] | Trisha Conner DNP | CKD (chronic kidney | | 2019 | Encounter | VASCULAR SURGERY | [address] | disease) stage 5, | | | | ULTRASOUND [address] | [place] | GFR less than 15 | | | | [address] | [address] | ml/min ([facility]) | | | | [place] | | | | | | [address] | | | | | | [phone] | | | +--------+ + + + [...] | | | | ([facility]), Secondary | | | | | | | hyperparathyroidism | | | | | | | ([facility]) | | | [...] | 1 | 06/04/20 | | | (ANDREAS HUGHES) | | | | 19 | | [...] | | | ([facility]) | | | [...] [place] | | | | | | [address] | | | | | | | [...]
--- OUTSIDE RECORDS SUMMARY | ~2020-08-15 | XMS | Encounter Summary ---
Demographics + + + | Address | [address] | | | [place] [address] | + + + | Home Phone [...] Team Providers + +------+ + | Care Fourdrinier Wire Weaver Name | Role | Phone | [...] + + | 09/10/ | Anesthesia | [facility] | Venkata Carroll | | | 2019 | [facility] | [address] | | | | | OPERATING ROOM [address] | [address] | | | | | [address] | [place] [address] | | | | | [place], [place] | [phone] | | | | | [address] | | | | | | [phone] | | | +--------+ + + + + Anesthesia Record + + + + + | Procedure Name | Responsible | Anesthesia Start | Anesthesia Stop Time | | | Anesthesiologist | Time | | + + + + + | INSERTION AV FISTULA | Venkata Carroll, | 09/10/19 1307 | 09/10/19 1401 | | (Right BBF) (Right | HISTORIAN RESEARCH ASSISTANT | | | | Arm Upper) | [...] 09/10/19 1600 by | | amor | qfnl-lra-xjybih catheter system; | Trinidad Ramírez | Leana [...] EVALUATION Kavon Andujar 79 y.o. male 1940 [id number] Procedure(s) INSERTION AV FISTULA (Right BBF) (Right [...] signed by Venkata Carroll CRNA 09/10/2019 14:10 [facility] signed by Venkata Carroll CRNA at 09/10 2:10 PM PDTAnesthesia Preprocedure Evaluation - Venkata Carroll CRNA - 09/10/2019 12:41 PM PDT ANESTHESIA PREANESTHESIA EVALUATION Kavon Andujar 79 y.o. male 1940 [id number] Procedure(s): INSERTION AV FISTULA (Right BBF) (Right [...] NOTE Kavon Andujar 79 y.o. male 1940 [id number] INSERTION AV FISTULA (Right BBF) (Right Arm [...] receiving team. Venkata Carroll CRNA 09/10/2019 14:09 [facility] signed by Venkata Carroll CRNA at 09/10 [...] | | | Visit | | [address] [place], [place] | | | | | | [address] | | | | | | | [...]
--- OUTSIDE RECORDS SUMMARY | ~2020-08-15 | XMS | Encounter Summary ---
Demographics + + + | Address | [address] | | | [place] [address] | + + + | Home Phone [...] Team Providers + +------+ + | Care Lunch Truck Driver Name | Role | Phone [...] | | | [address] | [place] [address] | | | | | [place] [address] | | | | | | [phone] | | | +--------+ + + + [...] | | Visit | | [address] [place] | | | | | | [address] | | | | | | | [...]
--- OUTSIDE RECORDS SUMMARY | ~2020-08-15 | XMS | Encounter Summary ---
Demographics + + + | Address | [address] | | | [place] [address] | + + + | Home Phone [...] Team Providers + +------+ + | Care Supplier Relationship Director Name | Role | Phone | + +------+ + | Rahul Silva MD | PCP | | + +------+ + Encounter Details +--------+ + + + + | Date | Type | Department | Care Team | Description | +--------+ + + + + | 10/03/ | Orders Only | [facility] | Conversion | | | 2015 | | NEPJUANCARLOS GIBSON | Transaction, | | | | | [address] | Provider Unknown | | | | | [address] [place], [place] | [phone] | | | | | [address] | (Fax) | | | | | [phone] | | | +--------+ + + + [...] [place] | | | | | | [address] | | | | | | | [...]
--- OUTSIDE RECORDS SUMMARY | ~2020-08-15 | XMS | Encounter Summary ---
Demographics + + + | Address | [address] | | | [place] [address] | + + + | Home Phone [...] [place] | | | | | [address] | | + + + + + Care Team Providers + +------+ + | Care Automatic Centrifugal Station Operator Name | Role | Phone | [...] Rd | | | | | | [place], [place] | | | | | | [address] | | | +--------+ + + + [...] as of this encounter Progress Notes Interface, General Teller In - 03/27/2007 3:12 AM PDT CLINIC [...] an abnormal AC-BE, he was referred to [facility] for colonoscopy. MEDICATIONS: 1. Vicodin. 2. [...] Dr. Valles who is his physician in [place], [place]. He has made me aware that [...]
--- OUTSIDE RECORDS SUMMARY | ~2020-08-15 | XMS | Encounter Summary ---
Demographics + + + | Address | [address] | | | [place] [address] | + + + | Home Phone [...] Providers + +------+ + | Care Veneer Clipper Helper Name | Role | Phone | [...] [place] | | | | | | [address] | | | | | | [phone] | | | +--------+ + + + [...] states the patient is currently admitted in [place] and will no t make it to [...] 2020 | Office | | [address] [facility] | | | | Visit | | [address] [place] | | | | | | [address] | | | | | | | | +--------+ + + + + documented as of this encounter Visit Diagnoses Not on filedocumented in this encounter"
--- OUTSIDE RECORDS SUMMARY | ~2020-08-15 | XMS | Encounter Summary ---
Demographics + + + | Address | [address] | | | [place] [address] | + + + | Home Phone [...] Team Providers + +------+ + | Care Stencil Sprayer Name | Role | Phone | + +------+ + | Rahul Silva MD | PCP | | + +------+ + Encounter Details +--------+ + + + + | Date | Type | Department | Care Team | Description | +--------+ + + + + | 08/13/ | Orders Only | [facility] | Conversion | | | 2016 | | NEPHROLOGY [place] | Transaction, | | | | | [address] | Provider Unknown | | | | | [address] [place] | | | | | | [address] | (Fax) | | | | | [phone] | | | +--------+ + + + [...] | | Visit | | [address] [facility] | | | | | | [address] | | | | | | | [...]
--- OUTSIDE RECORDS SUMMARY | ~2020-08-15 | XMS | Encounter Summary ---
Demographics + + + | Address | [address] | | | [place] [address] | + + + | Home Phone [...] Team Providers + +------+ + | Care Ibm Bpm Architect Name | Role | Phone | + +------+ + | aRhul Silva MD | PCP | | + +------+ + Encounter Details +--------+ + + + + | Date | Type | Department | Care Team | Description | +--------+ + + + + | 04/10/ | Orders Only | [facility] | Conversion | | | 2014 | | NEPJUANCARLOS GIBSON | Transaction, | | | | | [address] | Provider Unknown | | | | | [address] [place], [place] | [phone] | | | | | [address] | | | | | | [phone] | | | +--------+ + + + [...] 2020 | Office | | [address] [facility] | | | | Visit | | [address] [place] | | | | | | [address] | | | | | | | [...]
--- OUTSIDE RECORDS SUMMARY | ~2020-08-15 | XMS | Encounter Summary ---
Demographics + + + | Address | [address] | | | [place] [address] | + + + | Home Phone [...] Providers + +------+ + | Care Family Psychologist Name | Role | Phone | + +------+ + | Rahul Silva MD | PCP | | + +------+ + Encounter Details +--------+---------+ + + + | Date | Type | Department | Care Team | Description | +--------+---------+ + + + | 10/04/ | Office | [facility] | Farrukh Acuna MD | CKD (chronic kidney | | 2019 | Visit | NEPHROLOGY [place] | [address] [place] | disease) stage 5, | | | | [address] | [address] [place], [place] | GFR less than 15 | | | | [address] | [address] | ml/min (HCC) | | | | [place], [place] | | (Primary Dx); Anemia | | | | [address] | | of chronic kidney | | | | [phone] | | failure, stage 5 | | [...] 10/2016 with severe pneumonia, severe ZEKE; needed LOG DECK TENDER for ~5 weeks b efore renal function recovery mid 12/2016. He was admitted to [facility] for 3 nights in July [...] 19.5 (A) 05/27/2019 LABPROT 2,445.6 (A) 03/01/2019 [id number] 30 10/08/2018 Assessment: Mr. Andujar is a 78 y.o. male patient with stage IV CKD on a background of diabetes & hypert ension and recent hospitalization for C-diff and hehydration. The most likely pathology here is that of diabetic nephropathy +/- hypertensive nephrosclerosis/arteriolosclerosis. He was hospitalized in 10/2016 with severe pneumonia, severe ZEKE; needed LOG DECK TENDER for ~5 weeks b efore renal [...] Also: I see no need for acute LOG DECK TENDER. I see no need to send [...] | | Visit | | [address] [place], [place] | | | | | | [address] | | | | | | | | +--------+ + + + + documented as of this encounter Visit Diagnoses + + | Diagnosis | + + | CKD (chronic kidney disease) stage 5, GFR less than 15 ml/min ([facility]) - Primary Chronic | | [...]
--- OUTSIDE RECORDS SUMMARY | ~2020-08-15 | XMS | Encounter Summary ---
Demographics + + + | Address | [address] | | | [place] [address] | + + + | Home Phone [...] Team Providers + +------+ + | Care Housefellow Name | Role | Phone | + [...] + + | 11/17/ | Telephone | [facility] | Farrukh Acuna MD | Other (Patient call | | 2019 | | NEPHROLOGY [place] | [address] [place] | ) | | | | [address] [place] | [address] [facility] [place] | | | | | 160 [facility] [place] | [address] | | | | | [address] | | | | | | [phone] | | | +--------+ + + + [...] Miscellaneous Notes Telephone Encounter - Trinidad Simon Pouncer - 12/17/2019 10:24 AM PSTDr. A koum aware elephone Encounter - Trinidad Simon Pouncer - 11/17/2019 2:11 PM PS TPatients daughter is concerned because her dad has been having some confusion. She states t hat the ER told her that he may have had a "small stroke". She states that patient was instr ucted to take Asprin after the hospital stay. She would just like to let Dr. Acuna know. El ectronically signed by Trinidad Simon Pouncer at 11/17/2019 2:15 PM PSTdocum ented in [...] | | | Visit | | [address] [place], [place] | | | | | | [address] | | | | | | | | +--------+ + + + + documented as of this encounter Visit Diagnoses Not on filedocumented in this encounter
--- OUTSIDE RECORDS SUMMARY | ~2020-08-15 | XMS | Encounter Summary ---
Demographics + + + | Address | [address] | | | [place] [address] | + + + | Home Phone [...] Team Providers + +------+ + | Care Immigration Inspector Name | Role | Phone | + +------+ + | Rahul Silva MD | PCP | | + +------+ + Encounter Details +--------+ + + + + | Date | Type | Department | Care Team | Description | +--------+ + + + + | 09/17/ | Orders Only | [facility] | Collin Mirza, | | | 2016 | | NEPHROLOGY [place] | PAINTING MANAGER [address] | | | | | [address] [place] | [address] | | | | | [address] [place], [place] | [place] | | | | | [address] | [address] | | | | | [phone] | [phone] | | | | | | | [...] | | | Visit | | [address] [place] | | | | | | [address] | | | | | | | [...]
--- OUTSIDE RECORDS SUMMARY | ~2020-08-15 | XMS | Encounter Summary ---
Demographics + + + | Address | [address] | | | [place] [address] | + + + | Home Phone [...] Team Providers + +------+ + | Care Knitted Goods Shaper Name | Role | Phone | + +------+ + | Rahul Silva MD | PCP | | + +------+ + Encounter Details +--------+ + + + + | Date | Type | Department | Care Team | Description | +--------+ + + + + | 07/18/ | Orders Only | [facility] | Conversion | | | 2015 | | NEPHROLOGY [place] | Transaction, | | | | | [address] [facility] | Provider Unknown | | | | | [place] | [phone] | | | | | [address] | | | | | | [phone] | | | +--------+ + + + [...] Office | | [address] [facility] [address] | | | | Visit | | [address] [place] | | | | | | [address] | | | | | | | [...] - 1.030 | EXTERNAL | | | [place], | | | LAB | | | [...] | | | LAB | | | Icelandic | | | | | + + [...]
--- OUTSIDE RECORDS SUMMARY | ~2020-08-15 | XMS | Encounter Summary ---
Demographics + + + | Address | [address] | | | [place] [address] | + + + | Home Phone [...] Team Providers + +------+ + | Care Tailor Men'S Ready To Wear Name | Role | Phone | + +------+ + | Rahul Silva MD | PCP | | + +------+ + Encounter Details +--------+ + + + + | Date | Type | Department | Care Team | Description | +--------+ + + + + | 09/18/ | Orders Only | [facility] | Conversion | | | 2018 | | NEPHROLOGY [place] | Transaction, | | | | | [address] | Provider Unknown | | | | | [address] [place] | | | | | | [address] | (Fax) | | | | | [phone] | | | +--------+ + + + [...] | Office | | [address] [facility] | | | | Visit | | [facility] | | | | | | [address] | | | | | | | [...]
--- OUTSIDE RECORDS SUMMARY | ~2020-08-15 | XMS | Encounter Summary ---
Demographics + + + | Address | [address] | | | [place] [address] | + + + | Home Phone [...] [place] | | | | | [address] | | + + + + + Care Team Providers + +------+ + | Care Corrections Specialist Name | Role | Phone | [...] | | | | | | [facility], [address] | | | | | | [place], [place] | | | | | | [address] | | | | | | [phone] | | | +--------+ + + + [...] as of this encounter Progress Notes Interface, Alumina Refinery Operator In - 01/22/2007 3:04 AM PST CLINIC DATE: 06/07/97 NEUROLOGY CLINIC HISTORY OF PRESENT ILLNESS: Mr. Andujar is a 56 year-old male who is being evaluated in the Clinic for problems with balance and tremulousness of both upper extremities. He has been referred to this Clinic by Dr. Valles from [place], [place], and has also previously undergone extensive evaluations in the Neurosurgical Clinic and at Vascular Surgery at [facility]. His most recent hospitalization to [facility] was December 28, 1996, when he [...] evaluation in the Pain Management Clinic at [facility] and previous trials of Neurontin and mexiletine hydrochloride apparently appears to have been unsuccessful. Shortly following his December hospitalization at [facility], Mr. Andujar apparently became comatose in January from an accidental overdose of Darvon for which he was admitted to [facility] in [place], [place]. The details pertaining to this hospitalization are currently not available but as per Mr. Andujar, he was in a coma for a six day period and upon recovery noted tremulousness of both upper extremities, worse on his left than on his right. Prior to his hospitalization at [facility] and following his discharge from [facility], he apparently was ambulating with crutches since the stump pain precluded the use of his left lower extremity prosthesis. Since his discharge from [facility], however, he has been experiencing increasing problems with balance and apparently has fallen on several occasions. The head CT-scan that was done at [facility], dated February 07, 1997, reveals a low attenuation area in the left anterior basal ganglia felt to represent a small lacunar infarct, with no other significant abnormality. Mr. Andujar states that during the course of his hospitalization at [facility] he apparently fell on three occasions sustaining occipital head trauma but did not undergo subsequent brain imaging studies. His stay at [facility] lasted two weeks. By his report, he [...] Mr. Andujar specifically denies impairment of hand agriculture instructor, impaired strength in either upper extremity or [...] currently lives in a [facility] in [place], [place]. 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 He currently smokes one-half pkkb-oak-lsd since age 23. Denies current alcohol use [...] in turn led to his hospitalization at [facility] in January 1997 for coma at which [...] procedures for pain relief. Michelle Landon M.D. Fishing Tool Supervisor, Neurology GN:fermin C: 06/28/97 cc: RUBIA VALLES MD [address] [facility] [address] Alina Moise M.D. Professor and Nut Sheller, Division of Neurosurgery Robert Carlson M.D. Professor, Vascular Surgery documented in this encounter Plan of Treatment Not on filedocumented as of this encounter Visit Diagnoses Not on filedocumented in this encounter"
--- OUTSIDE RECORDS SUMMARY | ~2020-08-15 | XMS | Encounter Summary ---
Demographics + + + | Address | [address] | | | [place] [address] | + + + | Home Phone [...] Team Providers + +------+ + | Care Naphthalene Still Operator Name | Role | Phone [...] + + | 08/18/ | Refill | [facility] | Sandy Capellan | Medication Refill | | 2019 | | NEPRHOLOGY PAIGE Valadez RN | | | | | [address] | | | | | | [address] [place] | | | | | | [address] | | | | | | [phone] | | | +--------+--------+ + + + [...] They manually faxed re quest to the [place] office now and fax has been received. Spoke with the pharmacy laboratory technician and provided updated location/fax numbers for our [facility], and [place] office. They had a file for Dr Acuna with 4 locations in [place], 2 locations in [place], [facility], and [place]. They report they had faxed request to [...] | | | Visit | | [address] [place], [place] | | | | | | [address] | | | | | | | [...]
--- OUTSIDE RECORDS SUMMARY | ~2020-08-15 | XMS | Encounter Summary ---
Demographics + + + | Address | [address] | | | [place] [address] | + + + | Home Phone [...] Providers + +------+ + | Care Textile Artist Name | Role | Phone | [...] | | | stage 5, GFR | [address] | | | | | | less than | Phone: | | | | | | 15 ml/min | [phone] | | | | | | (HCC) | Fax: | | | | | | Procedures | [phone] | | | | | | VAS [...] + + | 10/20/ | Office | [facility] | Trisha Conner, MERY | CKD (chronic kidney | | 2019 | Visit | VASCULAR SURGERY | [address] | disease) stage 5, | | | | [address] | [address], [place] | GFR less than 15 | | | | [place], [place] | [address] | ml/min (HCC) | | | | [address] | | (Primary Dx); AVF | | | | [phone] | | (arteriovenous | | | | [...] Trisha Conner DNP - 10/20/2019 2:30 PM [facility] Surgery Clinic [address] [place] [address] Office: [phone] DATE OF VISIT: 10/20/2019 PATIENT NAME: Kavon Andujar : 1940; AGE: 79 y.o.; Sex:M PHONE NUMBER: ; ; PROVIDER: Trisha Conner DNP PRIMARY CARE / REFERRING PHYSICIAN: No ref. provider found / Rahul Silva MD / [address] [facility] [address] / [place] [address] REASON FOR EVALUATION / CHIEF COMPLAINT: Vascular Surgery Postoperative Visit for AVF creation The patient presents today for a Vascular Surgery Postoperative Visit. The patient is statu s post right brachiocephalic AVF creation, which was performed on 09/10/2019 at the [facility] Operating Room. The patient is not having any pain. The patient denie s fever, wound drainage, increasing redness, pus, increasing pain, increasing swelling. Phys ical examination revealed surgical incision is healed. He has good thrills over the AVF site . Patient's core winder machine operator is Dr. Acuna. The patient is [...] | | Visit | | [address] [place], [place] | | | | | | [address] | | | | | | | [...] + + | Performing | Address | City/State/[facility] | Phone Number | | Organization | | | | + +---------+ + + | [facility] | | | | + +---------+ + + documented in this encounter Visit Diagnoses + + | Diagnosis | + + | CKD (chronic kidney disease) stage 5, GFR less than 15 ml/min ([facility]) - Primary Chronic | | kidney disease, Stage V | + + | AVF (arteriovenous fistula) ([facility]) Arteriovenous fistula, acquired | + + documented in this encounter"
--- OUTSIDE RECORDS SUMMARY | ~2020-08-15 | XMS | Encounter Summary ---
Demographics + + + | Address | [address] | | | [place] [address] | + + + | Home Phone [...] Providers + +------+ + | Care Chief Minister Name | Role | Phone | + [...] | | | [address] | [place] [address] | | | | | [place] [address] | | | | | | [phone] | | | +--------+ + + + [...] | | | Visit | | [address] [facility] | | | | | | [address] | | | | | | | [...]
--- OUTSIDE RECORDS SUMMARY | ~2020-08-15 | XMS | Encounter Summary ---
Demographics + + + | Address | [address] | | | [place] [address] | + + + | Home Phone [...] Providers + +------+ + | Care Chemical Etch Operator Name | Role | Phone | [...] [address] | [place], [place] | | | | | [place], [place] | [address] | | | | | [address] | [phone] | | | | | [phone] | | | +--------+ + + + [...] Miscellaneous Notes Telephone Encounter - Megan Blackwell Integrative Medicine Physician - 08/25/2019 2:08 PM PDTConfirmed appointment for tomorrow. Electronically signed by Megan N Ross, Integrative Medicine Physician at 08/25 2:09 PM PDTTelephone Encounter - [...] transfer the call to a damian munoz morgue technician was caller made aware that if at [...] | | | Visit | | [address] [place], [place] | | | | | | [address] | | | | | | | | +--------+ + + + + documented as of this encounter Visit Diagnoses Not on filedocumented in this encounter"
--- OUTSIDE RECORDS SUMMARY | ~2020-08-15 | XMS | Encounter Summary ---
Demographics + + + | Address | [address] | | | [place] [address] | + + + | Home Phone [...] Team Providers + +------+ + | Care Paste Mixing Supervisor Name | Role | Phone | + +------+ + | Rahul Silva MD | PCP | | + +------+ + Encounter Details +--------+ + + + + | Date | Type | Department | Care Team | Description | +--------+ + + + + | 01/23/ | Orders Only | [facility] | Collin Mirza, | | | 2015 | | NEPHROLOGY [place] | LOG OPERATIONS COORDINATOR [address] | | | | | [address] | [address] | | | | | [address] [place], [place] | [place] | | | | | [address] | [address] | | | | | [phone] | [phone] | | | | | | | [...] 2020 | Office | | [address] [facility] | | | | Visit | | [address] [place] | | | | | | [address] | | | | | | | [...] | | | LAB | | | [place] | | | | | + + [...]
--- OUTSIDE RECORDS SUMMARY | ~2020-08-15 | XMS | Encounter Summary ---
Demographics + + + | Address | [address] | | | [place] [address] | + + + | Home Phone [...] [place] | | | | | [address] | | + + + + + Care Team Providers + +------+ + | Care Strapping Machine Operator Name | Role | Phone [...] [address] | | | | | | [place], [place] | | | | | | [address] | | | | | | [phone] | | | +--------+ + + + [...] this encounter Miscellaneous Notes Scan - Interface, Vamp Strap Ironer In - 05/05/2009 11:41 AM PDT Patient [...] * Comments- PROTIME 15.9 SECONDS DONE AT [facility]. DAUGHTER REPORTS PATIENT WAS SEEN AT [facility] AFTER HE FELL AND INJURED LEG AMPUTATION [...] Changes Dose THRP 05/07/93 02.29 I 2.29 [id number] 0000 0000 60.00 N 05/01/93 02.65 I 2.65 [id number] 0000 0000 60.00 N 04/26/93 02.04 I 2.04 [id number] 0000 0000 62.50 N 04/23/93 01.64 I 1.64 [id number] 0000 0000 62.50 L 04/19/93 01.57 I 1.57 [id number] 0000 0000 65.00 L Dosage Weekly Date [...]
--- OUTSIDE RECORDS SUMMARY | ~2020-08-15 | XMS | Encounter Summary ---
Demographics + + + | Address | [address] | | | [place] [address] | + + + | Home Phone [...] Providers + +------+ + | Care Facilities Director Name | Role | Phone | [...] [address] | | | | | [place], [place] | [place], [place] | | | | | [address] | [address] | | | | | [phone] | [phone] | | | | | | | [...] | | Visit | | [address] [place] | | | | | | [address] | | | | | | | [...]
--- OUTSIDE RECORDS SUMMARY | ~2020-08-15 | XMS | Encounter Summary ---
Demographics + + + | Address | [address] | | | [place] [address] | + + + | Home Phone [...] Team Providers + +------+ + | Care Fpga Engineer Name | Role | Phone | [...] + | 09/17/ | Documentati | [facility] | KevonOly sullivan | Labs Only ([facility] | | 2019 | on | NEPRHOLOGY [place] | V, Medical | 08/24/19) | | | | [address] | Warehouse Operations Associate | | | | | [address] [place], [place] | | | | | | [address] | | | | | | [phone] | | | +--------+ + + + [...] | | | Visit | | [address] [facility] | | | | | | [address] | | | | | | | [...] + + | REFERENCE LAB | [address] [place] | [place] | [phone] | | [facility] | | [address] | | + + + + + | REFERENCE LAB | [address] [place] | [place] | [phone] | | [facility] | | [address] | | + + + + + documented in this encounter Visit Diagnoses Not on filedocumented in this encounter"
--- OUTSIDE RECORDS SUMMARY | ~2020-08-15 | XMS | Encounter Summary ---
Demographics + + + | Address | [address] | | | [place] [address] | + + + | Home Phone [...] Team Providers + +------+ + | Care Speech Pathology Supervisor Name | Role | Phone [...] + + | 12/21/ | Documentati | [facility] | Alfred, | Other (Ramone live | | 2020 | on | NEPHROLOGY CONNIE | Charlie Abdi | order sent | | | | [address] [facility] SAURABH MARCOS | Director [facility] | confirmation | | | | [address] [place], [place] | | received.) | | | | [address] | | | | | | [phone] | | | +--------+ + + + [...] [place] | | | | | | [address] | | | | | | | | +--------+ + + + + documented as of this encounter Visit Diagnoses Not on filedocumented in this encounter"
--- OUTSIDE RECORDS SUMMARY | ~2020-08-15 | XMS | Encounter Summary ---
Demographics + + + | Address | [address] | | | [place] [address] | + + + | Home Phone [...] Providers + +------+ + | Care Cement Grinding Mill Operator Name | Role | Phone [...] [address] | | | | | [place], [place] | [place], [place] | | | | | [address] | [address] | | | | | [phone] | [phone] | | | | | | | [...] | | | Visit | | [address] [place] | | | | | | [address] | | | | | | | [...]
--- OUTSIDE RECORDS SUMMARY | ~2020-08-15 | XMS | Encounter Summary ---
Demographics + + + | Address | [address] | | | [place] [address] | + + + | Home Phone [...] Providers + +------+ + | Care Lead Software Test Engineer Name | Role | Phone | [...] | Telephone | [facility] | Brian Orosco MD | Establish Care | | 2019 | | VASCULAR SURGERY | [address] | (Referral) | | | | [address] [place] | [place], [place] | | | | | [place], [place] | [address] | | | | | [address] | [phone] | | | | | [phone] | | | +--------+ + + + [...] transfer the call to a p erikavidixie hardwood floor refinisher was caller made aware that if at [...] | | | Visit | | [address] [place], [place] | | | | | | [address] | | | | | | | | +--------+ + + + + documented as of this encounter Visit Diagnoses Not on filedocumented in this encounter"
--- OUTSIDE RECORDS SUMMARY | ~2020-08-15 | XMS | Encounter Summary ---
Demographics + + + | Address | [address] | | | [place] [address] | + + + | Home Phone [...] Team Providers + +------+ + | Care Preschool Special Education Teacher Name | Role | Phone | + +------+ + | Rahul Silva MD | PCP | | + +------+ + Encounter Details +--------+ + + + + | Date | Type | Department | Care Team | Description | +--------+ + + + + | 08/19/ | Orders Only | [facility] | Conversion | | | 2017 | | NEPHROLOGY CONNIE | Transaction, | | | | | [address] | Provider Unknown | | | | | [address] [place] | | | | | | [address] | (Fax) | | | | | [phone] | | | +--------+ + + + [...] HOSPITAL[facility] | | | | | | [address] | | | | | | | [...]
--- OUTSIDE RECORDS SUMMARY | ~2020-08-15 | XMS | Encounter Summary ---
Demographics + + + | Address | [address] | | | [place] [address] | + + + | Home Phone [...] Team Providers + +------+ + | Care Table Maker Name | Role | Phone | [...] | | | | | Procedures | [address] | | | | | | VAS Arm | Phone: | | | | | | Bilateral | [phone] | | | | | | Mapping For | Fax: | | | | | | Dialysis | [phone] | | +--------+--------+ + + + + [...] | | | | | Procedures | [address] | | | | | | VAS Arm | Phone: | | | | | | Bilateral | [phone] | | | | | | Mapping For | Fax: | | | | | | Dialysis | [phone] | | +--------+--------+ + + + + Encounter Details +--------+ + + + + | Date | Type | Department | Care Team | Description | +--------+ + + + + | 08/20/ | Hospital | [facility] | Trisha Conner DNP | 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 | VASCULAR SURGERY | [address] | renal disease) ([facility]) | | | | ULTRASOUND [address] | [place], [place] | | | | | [address] | [address] | | | | | [place], [place] | | | | | | [address] | | | | | | [phone] | | | +--------+ + + + [...] 2020 | Office | | [address] [facility] | | | | Visit | | [address] [place] | | | | | | [address] | | | | | | | [...]
--- OUTSIDE RECORDS SUMMARY | ~2020-08-15 | XMS | Encounter Summary ---
Demographics + + + | Address | [address] | | | [place] [address] | + + + | Home Phone [...] [place] | | | | | [address] | | + + + + + Care Team Providers + +------+ + | Care Powder Cutting Operator Name | Role | Phone | + +------+ + PCP | Unavailable | + +------+ + Encounter Details +--------+ + + + + | Date | Type | Department | Care Team | Description | +--------+ + + + + | 02/26/ | Results | | Other, Faculty | | | 1993 | Only | | [phone] | | +--------+ + + + + [...] | + +---------+ + + | [facility] DEPARTMENT OF | | | | | RADIOLOGY | | | | + +---------+ + + documented in this encounter Visit Diagnoses Not on filedocumented in this encounter"
--- OUTSIDE RECORDS SUMMARY | ~2020-08-15 | XMS | Encounter Summary ---
Demographics + + + | Address | [address] | | | [place] [address] | + + + | Home Phone [...] Team Providers + +------+ + | Care Densitometrist Name | Role | Phone | + [...] | Transaction, | | | | | [place], [place] | Provider Unknown | | | | | [address] | [phone] | | | | | [phone] | | | +--------+ + + + [...] | | | Visit | | [address] [place], [place] | | | | | | [address] | | | | | | | [...]
--- OUTSIDE RECORDS SUMMARY | ~2020-08-15 | XMS | Encounter Summary ---
Demographics + + + | Address | [address] | | | [place] [address] | + + + | Home Phone [...] Phone | + + +---------+ + | Charlotet Andujar | ECON | Unknown | | + + +---------+ + Care Team Providers + +------+ + | Care Textile Engraver Name | Role | Phone | + [...] [address] | | | | | [place], [place] | [place], [place] | | | | | [address] | [address] | | | | | [phone] | [phone] | | | | | | | [...] | | | Visit | | [address] [place] | | | | | | [address] [...]
--- OUTSIDE RECORDS SUMMARY | ~2020-08-15 | XMS | Encounter Summary ---
Demographics + + + | Address | [address] | | | [place] [address] | + + + | Home Phone [...] Providers + +------+ + | Care Nutrition Tech Name | Role | Phone | + +------+ + | Rahul Silva MD | PCP | | + +------+ + Encounter Details +--------+ + + + + | Date | Type | Department | Care Team | Description | +--------+ + + + + | 09/07/ | Preadmit | [facility] | Brian Orosco MD | | | 2019 | Visit | CENTER PREADMIT | [address] | | | | | CLINIC [address] | [place], [place] | | | | | [place], [place] | [address] | | | | | [address] | [phone] | | | | | [phone] | | | +--------+ + + + [...] for the 09/07/19 encounter (Preadmit Visit) with [facility] ROOM 4 Medication Sig Instructions acyclovir [...] through Care Everywhere.Hemodialysis Ac cess, Creating a (Sri [place]ankan)Dialysis, Arteriovenous (AV) Fistula for ([place]ankan)documented in th is encounter Plan of Treatment +--------+ + + + + | Date | Type | Specialty | Care Team | Description | +--------+ + + + + | 10/30/ | Virtual | Nephrology | Farrukh Acuna MD | | | 2019 | Office | | [address] [facility] [place] | | | | Visit | | [address] [place], [place] | | | | | | [address] | | | | | | | [...] W | | | | | | [facility], | | | | | | [place] [address] | | | | + + + + + + + + | Specimen | + + | Blood | + + + + + + + | Performing | Address | City/State/Zipcode | Phone Number | | Organization | | | | + + + + + | [facility] | [address] | [place] [address] | [phone] | + + + + + CBC [...] | | | Absolute | performed at [facility], [address] | K/uL | LABORATORY | | | | [place], | | | | | | [place] [address] | | | | + + + + + + + + | Specimen | + + | Blood | + + + + + + + | Performing | Address | City/State/Zipcode | Phone Number | | Organization | | | | + + + + + | [facility] | [address] | [place] [address] | [phone] | + + + + + ECG [...]
--- OUTSIDE RECORDS SUMMARY | ~2020-08-15 | XMS | Encounter Summary ---
Demographics + + + | Address | [address] | | | [place] [address] | + + + | Home Phone [...] Providers + +------+ + | Care Ship Purser Name | Role | Phone | + [...] | | | | | | | ([facility]) | | | | | | | [...] | | 2019 | Encounter | [facility] | [address] | disease) stage 5, | | | | OPERATING ROOM [address] | [place] | GFR less than 15 | | | | [address] | [address] | ml/min ([facility]) | | | | [place] | [phone] | | | | | [address] | | | | | | [phone] | | | +--------+ + + + [...] shunt, please contact your ph ysician at [phone]. Discharge instructions for Diagnostic Imaging sedation patients [...] Anexsia, Lorcet, Lorcet HD, Lorcet Plus, Lortab, [place], Verdrocet, Vicodin, Vi codin ES, Vicodin HP, [...] information carefully each time. Talk to your business support coordinator regarding the use of this medicine in children. Special care may be needed. What side effects may I notice from receiving this medicine? Side effects that you should report to your doctor or health home health care case manager as soon as p ossible: allergic reactions [...] attention (report to your doctor or health home health care case manager if they continue or are bothersome): constipation [...] an official disposal site. Contact the [facility] at [phone] or your [facility] to find a site. If [...] this medicine? Tell your doctor or health home health care case manager if your pain does not go away, [...] cuts, scrapes, or blows. Date Last Reviewed: 12/01/201619993351-4256 [employer]. [address] [place] [address]. All righ ts reserved. This information is [...] | | | | | | | ([facility]), Secondary | | | | | | | hyperparathyroidism | | | | | | | ([facility]) | | | | | | [...] and bl ood clots prevention. Prescription for [place] given and side effects were explained. Patient states that he also takes oxycodone at home; patient and his family were educated about taki ng oxycodone or [place] only and not both. OTC Tylenol intake precautions also discussed. Arabella ent and his family verbalized understanding and agreeable. Opportunity to ask questions give n, all questions were answered. Leana Pimentel RN documented in this encounter H&P Notes Brian Orosco MD - [facility] Pre-Operative History & [...] CV: No peripheral edema, rate regular SKIN: [place], warm, dry without rash/lesion MS: ROM not [...] Orosco MD - 09/10/2019 2:00 PM PDT [facility] Service: Vascular Surgery Operative Note Pre-operative Diagnosis: CKD and need for penitentiary dialysis access Post-operative Diagnosis: same Procedure(s): Right brachiocephalic fistula creation Surgeon: Brian Orosco MD Refrigerating Technician(s): None Anesthesia: Monitor Anesthesia care and [...] | | Visit | | [address] [place], [place] | | | | | | [address] | | | | | | | [...] | | | | than 15 ml/min ([facility]) | | + +--------+ + + + [...] Testing | 65 - 99 mg/dL | [facility] | | | POC | performed at [facility];[address] | | LABORATORY | | | | [address];[place] | | | | | | [address] | | | | + + + + + + + + | Specimen | + + | | + + + + + + + | Performing | Address | City/State/Zipcode | Phone Number | | Organization | | | | + + + + + | [facility] | [address] | [place] [address] | [phone] | + + + + + POC [...] | | | POC | performed at [facility];[address] | | LABORATORY | | | | [address];[place] | | | | | | [address] | | | | + + + + + + + + | Specimen | + + | | + + + + + + + | Performing | Address | City/State/Zipcode | Phone Number | | Organization | | | | + + + + + | [facility] | [address] | [place] [address] | [phone] | + + + + + documented in this encounter Visit Diagnoses + + | Diagnosis | + + | CKD (chronic kidney disease) stage 5, GFR less than 15 ml/min ([facility]) - Primary Chronic | | kidney disease, Stage V | + + documented in this encounter Admitting Diagnoses + + | Diagnosis | + + | CKD (chronic kidney disease) stage 5, GFR less than 15 ml/min ([facility]) Chronic kidney | | disease, Stage V [...] One week or | | | longer, hothhy-djx-wyjvj use of | | | at least [...]
--- OUTSIDE RECORDS SUMMARY | ~2020-08-15 | XMS | Encounter Summary ---
Demographics + + + | Address | [address] | | | [place] [address] | + + + | Home Phone [...] Providers + +------+ + | Care Operations Coordinator Name | Role | Phone | [...] + + | 03/20/ | Telephone | [facility] | Sandy Capellan | Mary (Clarification | | 2020 | | NEPRHOLOGY PAIGE | BAN Valadez | on lab orders) | | | | [address] | | | | | | [address] [place] | | | | | | [address] | | | | | | [phone] | | | +--------+ + + + [...] banks, called explaining that they went to [facility] today but were unable to do labs becaus e they were missing the urine order. Explained that per last OV note, Dr Acuna only wanted b lood work and no urine testing was needed. She stated understanding and they will go to [facility] tomorrow for non-fasting blood work. Re-faxed pre-appointment orders (RFP, PTH, ferrit in, iron/iron binding, mag, and CBC) to [facility] in [place] (F#[phone]). Fax confirm ation received. No further questions at this time. documented in this encounter Plan of Treatment +--------+ + + + + | Date | Type | Specialty | Care Team | Description | +--------+ + + + + | 10/30/ | Virtual | Nephrology | Farrkuh Acuna MD | | 2019 | Office | | [address] [facility] | | | | Visit | | [address] [place], [place] | | | | | | [address] | | | | | | | | +--------+ + + + + documented as of this encounter Visit Diagnoses Not on filedocumented in this encounter"
--- OUTSIDE RECORDS SUMMARY | ~2020-08-15 | XMS | Encounter Summary ---
Demographics + + + | Address | [address] | | | [place] [address] | + + + | Home Phone [...] [place] | | | | | [address] | | + + + + + Care Team Providers + +------+ + | Care Senior Radiation Therapist Name | Role | Phone | + +------+ + PCP | Unavailable | + +------+ + Encounter Details +--------+ + + + + | Date | Type | Department | Care Team | Description | +--------+ + + + + | 04/06/ | Procedure - | Dig[facility]ive [facility] | Record, Operation | Operative Report | | 1997 | | Center at [facility] [address] | | | | | Transcribed | [facility] | | | | | | for Health and | | | | | | Healing, [address] | | | | | | [place], [place] | | | | | | [address] | | | | | | [phone] | | | +--------+ + + + [...] 04/06/1998 12:00 AM PDTAssociated Order(s): OPERATION RECORD [place] [address], [place] [address] [facility] OPERATION RECORD Med Rec No.: [id number] Date: 04/06/98 Name: Kavon Andujar ATTENDING SURGEON: Galo Arora M.D. King Maker, Division of Plastic & Reconstructive junior buyer(S): Barry Fofana M.D. Resident, Plastic Surgery PREOPERATIVE [...] needle counts were correct. Galo Arora M.D. King Maker, Division of Plastic & Reconstructive Surgery WOJCIECH/pita [...] + + | 04/06/1998 12:00 AM PDT [place] | | [facility] | | [address] [place] [address] | | [facility] | | | | OPERATION RECORD | | | | Med Rec No.: [id number] Date: 04/06/98 | | | | Name: Andujar, Kavon Morris | | | | | | ATTENDING SURGEON: | | Galo Arora M.D. | | King Maker, | | Division of Plastic & | | Reconstructive Surgery | | LABORER AIRPORT MAINTENANCE(S): | | Barry Fofana M.D. | | [...] | | Galo Arora M.D. | | King Maker, | | Division of Plastic & | | Reconstructive Surgery | | WOJCIECH/pita | | | | P | | C: 05/12/98 lv | | cc: | | | + + documented in this encounter Visit Diagnoses Not on filedocumented in this encounter"
--- OUTSIDE RECORDS SUMMARY | ~2020-08-15 | XMS | Encounter Summary ---
Demographics + + + | Address | [address] | | | [place] [address] | + + + | Home Phone [...] Team Providers + +------+ + | Care Montessori Teacher Name | Role | Phone [...] [address] | | | | | [place], [place] | [place] [address] | | | | | [address] | [phone] | | | | | [phone] | | | +--------+ + + + [...] HOSPITAL[facility] | | | | | | [address] | | | | | | | [...] pressures of 5-10mmHg. MEASUREMENTS | | | Bathhouse Attendant: MARLENA Authenticated by: VICTORIANO BIRMINGHAM MD Report [...] venous pressures of 5-10mmHg. | | MEASUREMENTS Bathhouse Attendant: BAIRONuthenticated by: VICTORIANO BIRMINGHAM MDReptigre | | [...] | |MEASUREMENTS | | | | | |Bathhouse Attendant: | |Authenticated by: VICTORIANO BIRMINGHAM MD | [...]
--- OUTSIDE RECORDS SUMMARY | ~2020-08-15 | XMS | Encounter Summary ---
Demographics + + + | Address | [address] | | | [place] [address] | + + + | Home Phone [...] Providers + +------+ + | Care Supervisor Cabinetmaker Name | Role | Phone | + [...] [address] | | | | | [place], [place] | [place], [place] | | | | | [address] | [address] | | | | | [phone] | [phone] | | | | | | | [...] | | | Visit | | [address] [place] | | | | | | [address] | | | | | | | [...]
--- OUTSIDE RECORDS SUMMARY | ~2020-08-15 | XMS | Encounter Summary ---
Demographics + + + | Address | [address] | | | [place] [address] | + + + | Home Phone [...] Team Providers + +------+ + | Care Ged Instructor Name | Role | Phone | [...] (OTHER) | | 2019 | Procedure | [facility] | [address] | | | | | OPERATING [address] | [place], [place] | | | | | [address] | [address] | | | | | [place], [place] | [phone] | | | | | [address] | | | | | | [phone] | | | +--------+ + + + [...] [place] | | | | | | [address] | | | | | | | | +--------+ + + + + documented as of this encounter Visit Diagnoses Not on filedocumented in this encounter"
--- OUTSIDE RECORDS SUMMARY | ~2020-08-15 | XMS | Encounter Summary ---
Demographics + + + | Address | [address] | | | [place] [address] | + + + | Home Phone [...] Team Providers + +------+ + | Care Mixing And Dispensing Supervisor Name | Role | Phone | + +------+ + | Rahul Silva MD | PCP | | + +------+ + Encounter Details +--------+ + + + + | Date | Type | Department | Care Team | Description | +--------+ + + + + | 12/19/ | Orders Only | [facility] | Conversion | | | 2016 | | NEPHROLOGY CONNIE | Transaction, | | | | | [address] | Provider Unknown | | | | | [address] [place] | | | | | | [address] | (Fax) | | | | | [phone] | | | +--------+ + + + [...] | | | Visit | | [address] [facility] | | | | | | [address] | | | | | | | [...]
--- OUTSIDE RECORDS SUMMARY | ~2020-08-15 | XMS | Encounter Summary ---
Demographics + + + | Address | [address] | | | [place] [address] | + + + | Home Phone [...] Team Providers + +------+ + | Care Day Habilitation Specialist Name | Role | Phone | [...] + + | 10/04/ | Documentati | [facility] | Simon, | Results (09/30/19) | | 2019 | on | NEPHROLOGY BASSEM | [facility] | | | | | [address] | Communications Tech | | | | | [address] | | | | | | [place] | | | | | | [address] | | | | | | [phone] | | | +--------+ + + + [...] | | | Visit | | [address] [place], [place] | | | | | | [address] | | | | | | | [...]
--- OUTSIDE RECORDS SUMMARY | ~2020-08-15 | XMS | Encounter Summary ---
Demographics + + + | Address | [address] | | | [place] [address] | + + + | Home Phone [...] [place] | | | | | [address] | | + + + + + Care Team Providers + +------+ + | Care Line Runner Name | Role | Phone | [...] | | | | | | [place], [place] | | | | | | [address] | | | | | | [phone] | | | +--------+ + + + [...] as of this encounter Progress Notes Interface, Soup Mixer In - 01/06/2007 5:03 AM PST CLINIC DATE: 10/31/97 [facility] - PROCEDURE NOTE [...] his left thigh stump. Nelson Melara M.D. Laboratory Miller, [facility] MANDY/maryjo documented in this encounter Plan of Treatment Not on filedocumented as of this encounter Visit Diagnoses Not on filedocumented in this encounter"
--- OUTSIDE RECORDS SUMMARY | ~2020-08-15 | XMS | Encounter Summary ---
Demographics + + + | Address | [address] | | | [place] [address] | + + + | Home Phone [...] Team Providers + +------+ + | Care Drying Machine Tender Name | Role | [...] + + | 05/18/ | Telephone | [facility] | Marilia Sandy | Other (ER report | | 2020 | | NEPRHOLOGY PAIGE | Rory RN | reviewed from | | | | [address] | | Sheila GILLIS | | | | [address] [place], [place] | | 05/16/20/No changes) | | | | [address] | | | | | | [phone] | | | +--------+ + + + [...] PM PDTDr Acuna reviewed [facility]. Per Dr Acuna, [...] he has been in and out of [facility] pt and has had lot of labs drawn. He is do for his 2 Week BMP and CBC. Can you please contact [facility] to get these 2 test result for Armand to review Please call them back at [phone]. Detailed message may be left on phone: Yes Last OV: 03/27/2020 Next OV: 06/05/2020 If this is a symptom based call and you were unable to immediately transfer the call to [facility] staff, was caller made aware that if at any timehefeels it is an emergency they should call 911 or go to the nearest emergency room? N/A Is development and housing director needed: no documented in this encounter Plan [...] [place] | | | | | | [address] | | | | | | | | +--------+ + + + + documented as of this encounter Visit Diagnoses Not on filedocumented in this encounter"
--- OUTSIDE RECORDS SUMMARY | ~2020-08-15 | XMS | Encounter Summary ---
Demographics + + + | Address | [address] | | | [place] [address] | + + + | Home Phone [...] Providers + +------+ + | Care Cigar Roller Name | Role | Phone | + +------+ + | Rahul Silva MD | PCP | | + +------+ + Encounter Details +--------+ + + + + | Date | Type | Department | Care Team | Description | +--------+ + + + + | 11/10/ | Orders Only | [facility] | Conversion | | | 2016 | | NEPHROLOGY CONNIE | Transaction, | | | | | [address] | Provider Unknown | | | | | [address] [place] | | | | | | [address] | (Fax) | | | | | [phone] | | | +--------+ + + + [...] | | | Visit | | [address] [facility] | | | | | | [address] | | | | | | | [...]
--- OUTSIDE RECORDS SUMMARY | ~2020-08-15 | XMS | Encounter Summary ---
Demographics + + + | Address | [address] | | | [place] [address] | + + + | Home Phone [...] Providers + +------+ + | Care Floor Nurse Name | Role | Phone | [...] + + | 03/14/ | Refill | [facility] | Farrukh Acuna MD | Medication Refill | | 2019 | | NEPHROLOGY [place] | [address] [place] | | | | | [address] | [address] [place], [place] | | | | | [address] | [address] | | | | | [place], [place] | | | | | | [address] | | | | | | [phone] | | | +--------+--------+ + + + [...] - 03/16/2020 11:05 AM PDTReceived fax [facility] [place] [facility] Torsemide. Torsemide prescription sent on 03/14 . Called [facility] to confirm they received electronic prescription. They received prescriptio n but were unable to fill it as it is too soon to fill. Their records show it was filled on 03/14. Appears that prescription was sent to both [facility] and [facility]. Called patient's daughter, Charlotte, and she reports they did pick and shovel worker prescription for Torsem luly at [facility] pharmacy. His primary pharmacy is [facility] and he was only getting the Torse mide at [facility] because [facility] was out of Torsemide. She asked that [facility] pharmacy be re moved from preferred pharmacy [...] | | | Visit | | [address] [place], [place] | | | | | | [address] | | | | | | | [...]
--- OUTSIDE RECORDS SUMMARY | ~2020-08-15 | XMS | Encounter Summary ---
Demographics + + + | Address | [address] | | | [place] [address] | + + + | Home Phone [...] [place] | | | | | [address] | | + + + + + Care Team Providers + +------+ + | Care Library Historian Name | Role | Phone | + [...] | | | | | | [address] | | | | | | [place], [place] | | | | | | [address] | | | | | | [phone] | | | +--------+ + + + [...] as of this encounter Progress Notes Interface, Weed Control Inspector In - 01/22/2007 3:04 AM PST [facility] and [address] [address] or June 07, 1997 Pravin VALLES MD [address] [place] [facility] [place] [place] [address] RE:Kavon Andujar MR#:[id number] Valles: I saw Kavon Andujar in the Neurology Clinic today and have enclosed a copy of my note. 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 He [...] over the telephone. Sincerely, Michelle Landon M.D. Coding Clerks Supervisor, Neurology JINNY/ C: 06/13/97 cc: Alina Moise M.D. Division of Neurosurgery [facility] Robert Carlson M.D. Division of Vascular Surgery [facility] documented in this encounter Plan of Treatment Not on filedocumented as of this encounter Visit Diagnoses Not on filedocumented in this encounter
--- OUTSIDE RECORDS SUMMARY | ~2020-08-15 | XMS | Encounter Summary ---
Demographics + + + | Address | [address] | | | [place] [address] | + + + | Home Phone [...] Providers + +------+ + | Care Residential Lawn Specialist Name | Role | Phone | [...] [address] | | | | | [place], [place] | [place], [place] | | | | | [address] | [address] | | | | | [phone] | [phone] | | | | | | | [...] 2020 | Office | | [address] [facility] | | | | Visit | | [address] [place] | | | | | | [address] | | | | | | | [...]
--- OUTSIDE RECORDS SUMMARY | ~2020-08-15 | XMS | Encounter Summary ---
Demographics + + + | Address | [address] | | | [place] [address] | + + + | Home Phone [...] Providers + +------+ + | Care Mat Weaver Name | Role | Phone | [...] [address] | | | | | [place], [place] | [place], [place] | | | | | [address] | [address] | | | | | [phone] | [phone] | | | | | | | [...] | | | Visit | | [address] [place] | | | | | | [address] | | | | | | | [...] TAE MD, LEONORA, , , , , HE, | [...]
--- OUTSIDE RECORDS SUMMARY | ~2020-08-15 | XMS | Encounter Summary ---
Demographics + + + | Address | [address] | | | [place] [address] | + + + | Home Phone [...] Providers + +------+ + | Care Solar Energy Technician Name | Role | Phone [...] [address] | | | | | [place], [place] | [place], [place] | | | | | [address] | [address] | | | | | [phone] | [phone] | | | | | | | [...] 2020 | Office | | [address] [facility] | | | | Visit | | [address] [place] | | | | | | [address] | | | | | | | [...]
--- OUTSIDE RECORDS SUMMARY | ~2020-08-15 | XMS | Encounter Summary ---
Demographics + + + | Address | [address] | | | [place] [address] | + + + | Home Phone [...] Team Providers + +------+ + | Care Insole Rounder Name | Role | Phone | + +------+ + | Rahul Silva MD | PCP | | + +------+ + Encounter Details +--------+ + + + + | Date | Type | Department | Care Team | Description | +--------+ + + + + | 09/07/ | Orders Only | [facility] | Farrukh Acuna MD | | | 2018 | | NEPRHOLOGY [place] | [address] [facility] [address] | | | | | [address] | [address] [place], [place] | | | | | [address] [place], [place] | [address] | | | | | [address] | | | | | | [phone] | | | +--------+ + + + [...] | | | Visit | | [address] [place], [place] | | | | | | [address] | | | | | | | [...]
--- OUTSIDE RECORDS SUMMARY | ~2020-08-15 | XMS | Encounter Summary ---
Demographics + + + | Address | [address] | | | [place] [address] | + + + | Home Phone [...] Providers + +------+ + | Care Solar Electric Installer Name | Role | Phone | [...] | | | [address] | [place] [address] | | | | | [place] [address] | | | | | | [phone] | | | +--------+ + + + [...] HOSPITAL[facility] | | | | | | [address] | | | | | | | [...]
--- OUTSIDE RECORDS SUMMARY | ~2020-08-15 | XMS | Encounter Summary ---
Demographics + + + | Address | [address] | | | [place] [address] | + + + | Home Phone [...] Providers + +------+ + | Care Tire Man Name | Role | Phone | [...] + + | 10/20/ | Telephone | [facility] | Simon, | Other (Tera F/U) | | 2018 | | NEPHROLOGY [place] | [facility] [facility] | | | | | [address] | Package Collector | | | | | [address] [facility] | | | | | | [place] | | | | | | [address] | | | | | | [phone] | | | +--------+ + + + [...] Miscellaneous Notes Telephone Encounter - [place] Simon Precision Optics Technician - 10/20/2019 10:47 AM PSTCalle d [...] | | | Visit | | [address] [place], [place] | | | | | | [address] | | | | | | | | +--------+ + + + + documented as of this encounter Visit Diagnoses Not on filedocumented in this encounter
--- OUTSIDE RECORDS SUMMARY | ~2020-08-15 | XMS | Encounter Summary ---
Demographics + + + | Address | [address] | | [place] [address] | + + + | Home Phone [...] [place] | | | | | [address] | | + + + + + Care Team Providers + +------+ + | Care Fire Extinguisher Mechanic Name | Role | Phone | [...] [address] | | | | | | [place], [place] | | | | | | [address] | | | | | | [phone] | | | +--------+ + + + [...] as of this encounter Progress Notes Interface, Department Clinician In - 01/06/2007 5:03 AM PST CLINIC DATE: 11/10/97 [facility] - FOLLOW-UP [...] of narcotic medication misuse. Nelson Melara M.D. Reexaminer, [facility]est[facility] MANDY/camryn cc: Robert Carlson M.D. Professor, Vascular Surgery documented in this encounter Plan of Treatment Not on filedocumented as of this encounter Visit Diagnoses Not on filedocumented in this encounter"
--- OUTSIDE RECORDS SUMMARY | ~2020-08-15 | XMS | Encounter Summary ---
Demographics + + + | Address | [address] | | | [place] [address] | + + + | Home Phone [...] Team Providers + +------+ + | Care Radiologic Therapist Name | Role | Phone | [...] | | | [address] | [place] [address] | | | | | [place] [address] | | | | | | [phone] | | | +--------+ + + + [...] 2019 | Office | | [address] [facility] [address] | | | | Visit | | [address] [facility] | | | | | | [address] | | | | | | | [...]
--- OUTSIDE RECORDS SUMMARY | ~2020-08-15 | XMS | Encounter Summary ---
Demographics + + + | Address | [address] | | | [place] [address] | + + + | Home Phone [...] Team Providers + +------+ + | Care Mission Worker Name | Role | Phone | + +------+ + | Rahul Silva MD | PCP | | + +------+ + Encounter Details +--------+ + + + + | Date | Type | Department | Care Team | Description | +--------+ + + + + | 05/27/ | Orders Only | [facility] | Farrukh Acuna MD | | | 2017 | | NEPHROLOGY [place] | [address] [place] | | | | | [address] [place] | [address] [place], [place] | | | | | [address] [place], [place] | [address] | | | | | [address] | | | | | | [phone] | | | +--------+ + + + [...] 2020 | Office | | [address] [facility] | | | | Visit | | [address] [place], [place] | | | | | | [address] | | | | | | | [...] | | | LAB | | | [place]alese | | | | | + + [...]
--- OUTSIDE RECORDS SUMMARY | ~2020-08-15 | XMS | Encounter Summary ---
Demographics + + + | Address | [address] | | | [place] [address] | + + + | Home Phone [...] Team Providers + +------+ + | Care Promotional Marketing Analyst Name | Role | Phone [...] [address] | | | | | [place], [place] | [place], [place] | | | | | [address] | [address] | | | | | [phone] | [phone] | | | | | | | [...] | | | Visit | | [address] [place] | | | | | | [address] | | | | | | | [...]
--- OUTSIDE RECORDS SUMMARY | ~2020-08-15 | XMS | Encounter Summary ---
Demographics + + + | Address | [address] | | | [place] [address] | + + + | Home Phone [...] Team Providers + +------+ + | Care Bunghole Borer Name | Role | Phone | + +------+ + | Mehrdad Bergman | PCP | | + +------+ + Encounter Details +--------+ + + + + | Date | Type | Department | Care Team | Description | +--------+ + + + + | 06/05/ | Virtual | [facility] | Farrukh Acuna MD | CKD (chronic kidney | | 2019 | Office | NEPHROLOGY [place] | [address] [place] | disease) stage 5, | | | Visit | [address] | [address] [place], [place] | GFR less than 15 | | | | [address] | [address] | ml/min (HCC) | | | | [place], [place] | | (Primary Dx); Anemia | | | | [address] | | of chronic kidney | | | | [phone] | | failure, stage 5 | | | | | | ([facility]); Persistent | | | | | | proteinuria; | | | | | | Essential | | | | | | hypertension; Iron | | | | | | deficiency; | | | | | | Secondary | | | | | | hyperparathyroidism | | | | | | ([facility]); 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 I see no need to send him [...] 03/01/19. He was in the ED at [facility] in late 05/2020 with CP & [...] 10/2016 with severe pneumonia, severe ZEKE; needed BATTERY ASSEMBLER PLASTIC for ~5 weeks b efore renal function recovery mid 12/2016. He was admitted to [facility] for 3 nights in July [...] 10/2016 with severe pneumonia, severe ZEKE; needed BATTERY ASSEMBLER PLASTIC for ~5 weeks b efore renal function [...] Also: I see no need for acute BATTERY ASSEMBLER PLASTIC. I see no need to send him [...] or concerns. Truly yours, Farrukh Acuna MD [facility], [facility] This exam was initially conducted via a secure 256-bit AES encrypted bidirectional video se ssion. You have chosen to receive care through the use of telemedicine. Telemedicine enables [facility] care providers at different locations to [...] | | | Visit | | [address] [place], [place] | | | | | | [address] | | | | | | | [...]
--- OUTSIDE RECORDS SUMMARY | ~2020-08-15 | XMS | Encounter Summary ---
Demographics + + + | Address | [address] | | | [place] [address] | + + + | Home Phone [...] Team Providers + +------+ + | Care Engraver Rubber Name | Role | Phone | + [...] [address] | (cancellation) | | | | [place], | [place], [place] | | | | | [place] [address] | [address] | | | | | [phone] | | | +--------+ + + + [...] with Dr. Magana at 1pm for a TRACK MAN consult due to not feeling well. Appointment [...] | | | Visit | | [address] [place], [place] | | | | | | [address] | | | | | | | | +--------+ + + + + documented as of this encounter Visit Diagnoses Not on filedocumented in this encounter"
--- OUTSIDE RECORDS SUMMARY | ~2020-08-15 | XMS | Encounter Summary ---
Demographics + + + | Address | [address] | | | [place] [address] | + + + | Home Phone [...] Team Providers + +------+ + | Care Preservationist Name | Role | Phone | + +------+ + | Rahul Silva MD | PCP | | + +------+ + Encounter Details +--------+ + + + + | Date | Type | Department | Care Team | Description | +--------+ + + + + | 11/10/ | Orders Only | [facility] | Farrukh Acuna MD | | | 2017 | | NEPHROLOGY [place] | [address] [place] | | | | | [address] [place] | [address] [place], [place] | | | | | [address] [place], [place] | [address] | | | | | [address] | | | | | | [phone] | | | +--------+ + + + [...] [place] | | | | | | [address] | | | | | | | [...]
--- OUTSIDE RECORDS SUMMARY | ~2020-08-15 | XMS | Encounter Summary ---
Demographics + + + | Address | [address] | | | [place] [address] | + + + | Home Phone [...] Providers + +------+ + | Care Television Station Manager Name | Role | Phone | [...] + + | 11/08/ | Documentati | [facility] | Alfred, | Results (10/10/19) | | 2019 | on | NEPHROLOGY [place] | [place] [facility] | | | | | [address] | General Practice | | | | | [address] | | | | | | [place] | | | | | | [address] | | | | | | [phone] | | | +--------+ + + + [...] | | | Visit | | [address] [place], [place] | | | | | | [address] | | | | | | | [...]
--- OUTSIDE RECORDS SUMMARY | ~2020-08-15 | XMS | Encounter Summary ---
Demographics + + + | Address | [address] | | | [place] [address] | + + + | Home Phone [...] Providers + +------+ + | Care Wire Web Worker Name | Role | Phone | [...] | | | [address] [place] | [place] [address] | | | | | [place] [address] | | | | | | [phone] | | | +--------+ + + + [...] [place] | | | | | | [address] | | | | | | | [...]
--- OUTSIDE RECORDS SUMMARY | ~2020-08-15 | XMS | Encounter Summary ---
Demographics + + + | Address | [address] | | | [place] [address] | + + + | Home Phone [...] Team Providers + +------+ + | Care Cobbler Upper Name | Role | Phone | + [...] + + | 03/29/ | Documentati | [facility] | Alfred, | Other (IV fercesilia | | 2020 | on | NEPHROLOGY [place] | Charlie Abdi | order sent to [facility] | | | | [address] | Glass Cutter | IVT confirmation | | | | [address] | | received) | | | | [place], [place] | | | | | | [address] | | | | | | [phone] | | | +--------+ + + + [...] | | | Visit | | [address] [place], [place] | | | | | | [address] | | | | | | | | +--------+ + + + + documented as of this encounter Visit Diagnoses Not on filedocumented in this encounter"
--- OUTSIDE RECORDS SUMMARY | ~2020-08-15 | XMS | Encounter Summary ---
Demographics + + + | Address | [address] | | | [place] [address] | + + + | Home Phone [...] Providers + +------+ + | Care Medical Intern Name | Role | Phone | [...] | | [address] [place] | [place] [address] | | | | | [place] [address] | | | | | | [phone] | | | +--------+ + + + [...] | | | Visit | | [address] [place] | | | | | | [address] | | | | | | | [...]
--- OUTSIDE RECORDS SUMMARY | ~2020-08-15 | XMS | Encounter Summary ---
Demographics + + + | Address | [address] | | | [place] [address] | + + + | Home Phone [...] Team Providers + +------+ + | Care Conservation Of Resources Commissioner Name | Role | Phone | [...] | | | [address] [place] | [place] [address] | | | | | [place] [address] | | | | | | [phone] | | | +--------+ + + + [...] [place] | | | | | | [address] | | | | | | | [...]
--- OUTSIDE RECORDS SUMMARY | ~2020-08-15 | XMS | Encounter Summary ---
Demographics + + + | Address | [address] | | | [place] [address] | + + + | Home Phone [...] Providers + +------+ + | Care Log Manager Name | Role | Phone | + +------+ + | Rauhl Silva MD | PCP | | + +------+ + Encounter Details +--------+ + + + + | Date | Type | Department | Care Team | Description | +--------+ + + + + | 02/24/ | Orders Only | [facility] | Conversion | | | 2016 | | NEPHROLOGY [place] | Transaction, | | | | | [address] | Provider Unknown | | | | | [address] [place] | | | | | | [address] | (Fax) | | | | | [phone] | | | +--------+ + + + [...] SYSTEMRADHA | | | | | | [address] | | | | | | | [...] - 1.030 | EXTERNAL | | | [place], | | | LAB | | | [...]
--- OUTSIDE RECORDS SUMMARY | ~2020-08-15 | XMS | Encounter Summary ---
Demographics + + + | Address | [address] | | | [place] [address] | + + + | Home Phone [...] [address] | | | | | [place], [place] | [place], [place] | | | | | [address] | [address] | | | | | [phone] | | | | | | | [...] | | | Visit | | [address] [place] | | | | | | [address] | | | | | | | [...]
--- OUTSIDE RECORDS SUMMARY | ~2020-08-15 | XMS | Encounter Summary ---
Demographics + + + | Address | [address] | | | [place] [address] | + + + | Home Phone [...] Providers + +------+ + | Care Mortgage Closing Clerk Name | Role | Phone | [...] [address] | | | | | [place], [place] | [place], [place] | | | | | [address] | [address] | | | | | [phone] | [phone] | | | | | | | [...] | | | Visit | | [address] [place] | | | | | | [address] | | | | | | | [...]
--- OUTSIDE RECORDS SUMMARY | ~2020-08-15 | XMS | Encounter Summary ---
Demographics + + + | Address | [address] | | | [place] [address] | + + + | Home Phone [...] Team Providers + +------+ + | Care Armament Repairer Name | Role | Phone | + +------+ + | Rahul Silva MD | PCP | | + +------+ + Encounter Details +--------+ + + + + | Date | Type | Department | Care Team | Description | +--------+ + + + + | 12/16/ | Orders Only | [facility] | Conversion | | | 2016 | | NEPHROLOGY [place] | Transaction, | | | | | [address] | Provider Unknown | | | | | [address] [place] | | | | | | [address] | (Fax) | | | | | [phone] | | | +--------+ + + + [...] HOSPITAL[facility] | | | | | | [address] | | | | | | | [...]
--- OUTSIDE RECORDS SUMMARY | ~2020-08-15 | XMS | Encounter Summary ---
Demographics + + + | Address | [address] | | | [place] [address] | + + + | Home Phone [...] Providers + +------+ + | Care General Utility Worker Name | Role | Phone | [...] + + | 05/04/ | Refill | [facility] | Farrukh Acuna MD | Medication Refill | | 2020 | | NEPHROLOGY [place] | [address] | | | | | [address] | [address] [place], [place] | | | | | [address] | [address] | | | | | [place], [place] | | | | | | [address] | | | | | | [phone] | | | +--------+--------+ + + + [...] | | | Visit | | [address] [place], [place] | | | | | | [address] | | | | | | | | +--------+ + + + + documented as of this encounter Visit Diagnoses + + | Diagnosis | + + | Essential hypertension - Primary Unspecified essential hypertension | + + | Anemia of chronic kidney failure, stage 5 ([facility]) | + + | Persistent proteinuria Proteinuria | + + | CKD (chronic kidney disease) stage 5, GFR less than 15 ml/min ([facility]) Chronic kidney | | disease, Stage V | + + documented in this encounter"
--- OUTSIDE RECORDS SUMMARY | ~2020-08-15 | XMS | Encounter Summary ---
Demographics + + + | Address | [address] | | | [place] [address] | + + + | Home Phone [...] Team Providers + +------+ + | Care Cardiac Monitor Name | Role | Phone | + +------+ + | Rahul Silva MD | PCP | | + +------+ + Encounter Details +--------+ + + + + | Date | Type | Department | Care Team | Description | +--------+ + + + + | 03/01/ | Orders Only | [facility] | Conversion | | | 2019 | | NEPHROLOGY [place] | Transaction, | | | | | [address] | Provider Unknown | | | | | [address] [place] | | | | | | [address] | (Fax) | | | | | [phone] | | | +--------+ + + + [...] | | Visit | | [facility] | | | | | | [address] | | | | | | | [...] - 1.030 | EXTERNAL | | | [place], | | | LAB | | | [...]
--- OUTSIDE RECORDS SUMMARY | ~2020-08-15 | XMS | Encounter Summary ---
Demographics + + + | Address | [address] | | | [place] [address] | + + + | Home Phone [...] Team Providers + +------+ + | Care Painter Supervisor Name | Role | Phone | [...] [address] | | | | | [place], [place] | [place], [place] | | | | | [address] | [address] | | | | | [phone] | [phone] | | | | | | | [...] 2020 | Office | | [address] [facility] | | | | Visit | | [address] [place] | | | | | | [address] | | | | | | | [...]
--- OUTSIDE RECORDS SUMMARY | ~2020-08-15 | XMS | Encounter Summary ---
Demographics + + + | Address | [address] | | | [place] [address] | + + + | Home Phone [...] Providers + +------+ + | Care Canal Superintendent Name | Role | Phone | [...] | [address] | [place] [address] | | | | | [place] [address] | | | | | | [phone] | | | +--------+ + + + [...] | | Visit | | [address] [place] | | | | | | [address] | | | | | | | [...]
--- OUTSIDE RECORDS SUMMARY | ~2020-08-15 | XMS | Encounter Summary ---
Demographics + + + | Address | [address] | | | [place] [address] | + + + | Home Phone [...] Team Providers + +------+ + | Care Bowling Alley Mechanic Name | Role | Phone | + +------+ + | Rahul Silva MD | PCP | | + +------+ + Encounter Details +--------+ + + + + | Date | Type | Department | Care Team | Description | +--------+ + + + + | 10/10/ | Orders Only | [facility] | Farrukh Acuna MD | | | 2013 | | NEPHROLOGY [place] | [address] | | | | | [address] [place] | [address] [place], [place] | | | | | [address] [place], [place] | [address] | | | | | [address] | | | | | | [phone] | | | +--------+ + + + [...] | Visit | | [facility] | | | | | | [address] | | | | | | | [...] | | | LAB | | | [place] | | | | | + + [...]
--- OUTSIDE RECORDS SUMMARY | ~2020-08-15 | XMS | Encounter Summary ---
Demographics + + + | Address | [address] | | | [place] [address] | + + + | Home Phone [...] Providers + +------+ + | Care Ict Development Manager Name | Role | Phone | + +------+ + | Mehrdad Bergman | PCP | | + +------+ + Encounter Details +--------+ + + + + | Date | Type | Department | Care Team | Description | +--------+ + + + + | 08/09/ | Virtual | [facility] | Farrukh Acuna MD | Persistent | | 2020 | Office | NEPHROLOGY [place] | [address] [place] | proteinuria (Primary | | | Visit | [address] | [address] [place], [place] | Dx); CKD (chronic | | | | [address] | [address] | kidney disease) | | | | [place], [place] | | stage 5, GFR less | | | | [phone] | | than 15 ml/min | | | | [phone] | | ([facility]); Anemia of | | | | | | chronic kidney | | | | | | failure, stage 5 | | | | | | ([facility]); Iron | | | | [...] 03/01/19. He was in the ED at [facility] on 08/01/20 with chest pain, non-cardiac in origin per records that I reviewed from the ED. He was in the ED at [facility] in late 05/2020 with CP & [...] 10/2016 with severe pneumonia, severe ZEKE; needed CLOUD SYSTEMS ARCHITECT for ~5 weeks b efore renal function recovery mid 12/2016. He was admitted to [facility] for 3 nights in July 2016 [...] 10/2016 with severe pneumonia, severe ZEKE; needed CLOUD SYSTEMS ARCHITECT for ~5 weeks b efore renal function [...] ALEXI. I see no need for acute CLOUD SYSTEMS ARCHITECT. I see no need to send him [...] or concerns. Truly yours, Farrukh Acuna MD [facility], [facility] This exam was initially conducted via a secure 256-bit AES encrypted bidirectional video se ssion. You have chosen to receive care through the use of telemedicine. Telemedicine enables [facility] care providers at different locations to [...] | | | Visit | | [facility] | | | | | | [address] | | | | | | | [...] ([facility]) | + + | Iron deficiency Other [...]
--- OUTSIDE RECORDS SUMMARY | ~2020-08-15 | XMS | Encounter Summary ---
Demographics + + + | Address | [address] | | | [place] [address] | + + + | Home Phone [...] Providers + +------+ + | Care Manager Global Communications Name | Role | Phone | + +------+ + | Rahul Silva MD | PCP | | + +------+ + Encounter Details +--------+ + + + + | Date | Type | Department | Care Team | Description | +--------+ + + + + | 08/31/ | Orders Only | [facility] | Farrukh Acuna MD | | | 2013 | | NEPHROLOGY [place] | [address] [place] | | | | | [address] [place] | [address] [place], [place] | | | | | [address] [place], [place] | [address] | | | | | [address] | | | | | | [phone] | | | +--------+ + + + [...] | | Visit | | [address] [facility] | | | | | | [address] | | | | | | | [...] | | | LAB | | | Panamanian | | | | | + + [...]
--- OUTSIDE RECORDS SUMMARY | ~2020-08-15 | XMS | Encounter Summary ---
Demographics + + + | Address | [address] | | | [place] [address] | + + + | Home Phone [...] Providers + +------+ + | Care Senior Lead Project Manager Name | Role | Phone [...] + + | 09/07/ | Telephone | [facility] | Sandy Gomez, | Surgery Appointment | | 2019 | | VASCULAR SURGERY | RN | | | | | [address] | | | | | | [place] | | | | | | [address] | | | | | | [phone] | | | +--------+ + + + [...] | | | Visit | | [address] | | | | | | [address] | | | | | | | | +--------+ + + + + documented as of this encounter Visit Diagnoses Not on filedocumented in this encounter"
--- OUTSIDE RECORDS SUMMARY | ~2020-08-15 | XMS | Encounter Summary ---
Demographics + + + | Address | [address] | | | [place] [address] | + + + | Home Phone [...] Team Providers + +------+ + | Care Prime Broker Name | Role | Phone | [...] | | | [place], [place] | [place], [place] | | | | | [address] | [address] | | | | | [phone] | [phone] | | | | | | | [...] | | | Visit | | [address] [place] | | | | | | [address] | | | | | | | [...]
--- OUTSIDE RECORDS SUMMARY | ~2020-08-15 | XMS | Encounter Summary ---
Demographics + + + | Address | [address] | | | [place] [address] | + + + | Home Phone [...] + +------+ + | Care Customer Service Agent Name | Role | Phone | [...] | | | [address] | [address] | ml/min (HCC) | | | | [place], [place] | | (Primary Dx); Anemia | | | | [address] | | of chronic kidney | | | | [phone] | | failure, stage 5 | | [...] before he comes back in 2 [facility]. documented in this encounter Progress Notes [...] with severe pneumonia, severe ZEKE; needed SENIOR PASTOR for ~5 weeks b efore renal function recovery mid 12/2016. He was admitted to [facility] for 3 nights in July [...] with severe pneumonia, severe ZEKE; needed SENIOR PASTOR for ~5 weeks b efore renal function [...] I see no need for acute SENIOR PASTOR. I see no need to send him [...] or concerns. Truly yours, Farrukh Acuna MD [facility], [facility] This exam was initially conducted via a secure 256-bit AES encrypted bidirectional video se ssion. You have chosen to receive care through the use of telemedicine. Telemedicine enables [facility] care providers at different locations to provide [...] | | | Visit | | [address] [place], [place] | | | | | | [address] | | | | | | | [...]
--- OUTSIDE RECORDS SUMMARY | ~2020-08-15 | XMS | Encounter Summary ---
Demographics + + + | Address | [address] | | | [place] [address] | + + + | Home Phone [...] [place] | | | | | [address] | | + + + + + Care Team Providers + +------+ + | Care Shoelace Tipping Machine Operator Name | Role | Phone [...] Vyas | | | | | | [address] | | | | | | [place], [place] | | | | | | [address] | | | | | | [phone] | | | +--------+ + + + [...] as of this encounter Progress Notes Interface, Stained Glass Glazier Helper In - 01/03/2007 5:08 AM PST [facility] and [address] [address] Department of Orthopaedics, School of [facility] OP19 December 21, 1997 Jerry Smiley M.D. [address] [place] [address] [address] [place] [address] RE:Kavon Andujar MR#:[id number] Smiley: Thank [...] Carlson might like. Sincerely, Eric Mcclure M.D. Guest Advisor, Department of Orthopaedics and Rehabilitation ERICK/sara A documented in this encounter Plan of Treatment Not on filedocumented as of this encounter Visit Diagnoses Not on filedocumented in this encounter"
--- OUTSIDE RECORDS SUMMARY | ~2020-08-15 | XMS | Encounter Summary ---
Demographics + + + | Address | [address] | | | [place] [address] | + + + | Home Phone [...] Team Providers + +------+ + | Care Small Package And Bundle Sorter Clerk Name | Role | Phone | [...] [address] | | | | | [place], [place] | [place], [place] | | | | | [address] | [address] | | | | | [phone] | [phone] | | | | | | | [...] | | | Visit | | [address] | | | | | | [address] | | | | | | | [...]
--- OUTSIDE RECORDS SUMMARY | ~2020-08-15 | XMS | Encounter Summary ---
Demographics + + + | Address | [address] | | | [place] [address] | + + + | Home Phone [...] Providers + +------+ + | Care Route Service Manager Name | Role | Phone [...] Unknown | | | | | [address] [place], [place] | [phone] | | | | | [address] | (Fax) | | | | | [phone] | | | +--------+ + + + [...] [place] | | | | | | [address] | | | | | | | [...]
--- OUTSIDE RECORDS SUMMARY | ~2020-08-15 | XMS | Encounter Summary ---
Demographics + + + | Address | [address] | | | [place] [address] | + + + | Home Phone [...] [place] | | | | | [address] | | + + + + + Care Team Providers + +------+ + | Care White Sugar Boiler Name | Role | Phone | + [...] Clinic | | | | | | [facility], [address] | | | | | | [place], [place] | | | | | | [address] | | | | | | [phone] | | | +--------+ + + + [...] as of this encounter Progress Notes Interface, Shirrer In - 01/09/2007 5:07 AM [facility] DATE: 10/03/97 [facility] - PROGRESS NOTE [...] Vargas D.O. Resident, Anesthesiology Nelson Melara M.D. Nursing Assistant, Anesthesiology [facility] NESTOR/dm cc: [place] [address] JESSENIA RODRIGUEZ MD [facility] documented in this encounter Plan of Treatment Not on filedocumented as of this encounter Visit Diagnoses Not on filedocumented in this encounter"
--- OUTSIDE RECORDS SUMMARY | ~2020-08-15 | XMS | Encounter Summary ---
Demographics + + + | Address | [address] | | | [place] [address] | + + + | Home Phone [...] Providers + +------+ + | Care Rehabilitation Aide Name | Role | Phone | + +------+ + | Rahul Silva MD | PCP | | + +------+ + Encounter Details +--------+ + + + + | Date | Type | Department | Care Team | Description | +--------+ + + + + | 07/11/ | Orders Only | [facility] | Farrukh Acuna MD | | | 2013 | | NEPHROLOGY [place] | [address] [place] | | | | | [address] [place] | [address] [place], [place] | | | | | [address] [place], [place] | [address] | | | | | [address] | | | | | | [phone] | | | +--------+ + + + [...] [facility] | | | | | | [address] | | | | | | | [...] | | | LAB | | | Cook Islander | | | | | + [...]
--- OUTSIDE RECORDS SUMMARY | ~2020-08-15 | XMS | Encounter Summary ---
Demographics + + + | Address | [address] | | | [place] [address] | + + + | Home Phone [...] | [facility] | | | [...] Providers + +------+ + | Care Power Line Installer Name | Role | Phone | [...] [address] | | | | | [place], [place] | [place], [place] | | | | | [address] | [address] | | | | | [phone] | [phone] | | | | | | | [...] | | | Visit | | [address] [place] | | | | | | [address] | | | | | | | [...]
--- OUTSIDE RECORDS SUMMARY | ~2020-08-15 | XMS | Encounter Summary ---
Demographics + + + | Address | [address] | | | [place] [address] | + + + | Home Phone [...] [place] | | | | | [address] | | + + + + + Care Team Providers + +------+ + | Care Covering Machine Operator Name | Role | Phone [...] | | [address] | [address]ha López [place], | | | | | [place] | [place] [address] | | | | | [place] | [phone] | | | | | [address] | | | | | | [phone] | | | +--------+ + + + [...] | | | | | | a Gilbert-Lupe catheter | | | | | | [...] | | | | placement of a Gilbert-Lupe | | | | | | catheter. CHEST, | | | | | | SINGLE AP PORTABLE: | | | | | | 03-31-93 AT 1000 HOURS | | | | | | FINDINGS: Since the | | | | | | prior study, the | | | | | | Gilbert-Lupe catheter has | | | | | [...] IMPRESSION: | | | | | | Gilbert-Lupe catheter | | | | | | [...] The | | | | | | Gilbert-Lupe catheter | | | | | | [...] and | | | | | | Gilbert-Lupe catheter | | | | | | [...] endotracheal | | | | | | tube,Gilbert-Lupe catheter | | | | | | [...] | + + + + + | [facility] | [address] | [place] [address] | | | PATHOLOGY | [place] | | | + + + + + documented in this encounter Visit Diagnoses Not on filedocumented in this encounter"
--- OUTSIDE RECORDS SUMMARY | ~2020-08-15 | XMS | Encounter Summary ---
Demographics + + + | Address | [address] | | | [place] [address] | + + + | Home Phone [...] Team Providers + +------+ + | Care Sod Cutter Name | Role | Phone | [...] Unknown | | | | | [address] [place], [place] | [phone] | | | | | [address] | | | | | | [phone] | | | +--------+ + + + [...] [place] | | | | | | [address] | | | | | | | [...] | | | LAB | | | Malaysian | | | | | + + [...]
--- OUTSIDE RECORDS SUMMARY | ~2020-08-15 | XMS | Encounter Summary ---
Demographics + + + | Address | [address] | | | [place] [address] | + + + | Home Phone [...] Team Providers + +------+ + | Care Sueding Machine Tender Name | Role | Phone [...] [address] | | | | | [place], [place] | [place], [place] | | | | | [address] | [address] | | | | | [phone] | [phone] | | | | | | | [...] | | | Visit | | [address] [place] | | | | | | [address] | | | | | | | [...]
--- OUTSIDE RECORDS SUMMARY | ~2020-08-15 | XMS | Encounter Summary ---
Demographics + + + | Address | [address] | | | [place] [address] | + + + | Home Phone [...] Providers + +------+ + | Care Golf Tournament Consultant Name | Role | Phone | + +------+ + | Rahul Silva MD | PCP | | + +------+ + Encounter Details +--------+ + + + + | Date | Type | Department | Care Team | Description | +--------+ + + + + | 10/08/ | Orders Only | [facility] | Farrukh Acuna MD | | | 2015 | | NEPHROLOGY [place] | [address] [place] | | | | | [address] [place] | [address] [place], [place] | | | | | [address] [place], [place] | [address] | | | | | [address] | | | | | | [phone] | | | +--------+ + + + [...] | | | Visit | | [address] [place], [place] | | | | | | [address] | | | | | | | [...]
--- OUTSIDE RECORDS SUMMARY | ~2020-08-15 | XMS | Encounter Summary ---
Demographics + + + | Address | [address] | | | [place] [address] | + + + | Home Phone [...] Team Providers + +------+ + | Care Bonsai Culturist Name | Role | Phone | + [...] + + | 01/30/ | Documentati | [facility] | Simon, | Results (01/25/20) | | 2020 | on | NEPHROLOGY [place] | [facility] | | | | | [address] | Cistern Room Working Supervisor | | | | | [address] [place], [place] | | | | | | [address] | | | | | | [phone] | | | +--------+ + + + [...] | | | Visit | | [address] [place] | | | | | | [address] | | | | | | | [...]
--- OUTSIDE RECORDS SUMMARY | ~2020-08-15 | XMS | Encounter Summary ---
Demographics + + + | Address | [address] | | | [place] [address] | + + + | Home Phone [...] Team Providers + +------+ + | Care Economics Teacher Name | Role | Phone | [...] + + | 01/10/ | Documentati | [facility] | Simon, | Results (01/07/20) | | 2020 | on | NEPHROLOGY [place] | [facility] | | | | | [address] [place] | Clay Modeler | | | | | [address] [place], [place] | | | | | | [address] | | | | | | [phone] | | | +--------+ + + + [...] | | | Visit | | [address] [place], [place] | | | | | | [address] | | | | | | | [...]
--- OUTSIDE RECORDS SUMMARY | ~2020-08-15 | XMS | Encounter Summary ---
Demographics + + + | Address | [address] | | | [place] [address] | + + + | Home Phone [...] Team Providers + +------+ + | Care Chocolate Finisher Name | Role | Phone | + +------+ + | Rahul Silva MD | PCP | | + +------+ + Encounter Details +--------+ + + + + | Date | Type | Department | Care Team | Description | +--------+ + + + + | 09/01/ | Orders Only | [facility] | Farrukh Acuna MD | | | 2013 | | NEPHROLOGY [place] | [address] [place] | | | | | [address] [place] | [address] [place], [place] | | | | | [address] [place], [place] | [address] | | | | | [address] | | | | | | [phone] | | | +--------+ + + + [...] | | Visit | | [address] [facility] | | | | | | [address] | | | | | | | [...]
--- OUTSIDE RECORDS SUMMARY | ~2020-08-15 | XMS | Encounter Summary ---
Demographics + + + | Address | [address] | | | [place] [address] | + + + | Home Phone [...] Team Providers + +------+ + | Care Three Knife Trimmer Name | Role | Phone | [...] + + | 11/12/ | Documentati | [facility] | Simon, | Results (11/10/19) | | 2019 | on | NEPHROLOGY [place] | [facility] | | | | | [address] | [employer] [place] | | | | | [address] [place], [place] | | | | | | [address] | | | | | | [phone] | | | +--------+ + + + [...] | | | Visit | | [address] [place], [place] | | | | | | [address] | | | | | | | [...]
[~2020-08-15 13:19] MED LIST changes: +OMEPRAZOLE20 MG PO
--- OUTSIDE RECORDS SUMMARY | 2020-08-15 13:30 | XMS ---
PreManage Notification: PORFIRIO ZAVALA Security Vp Medical Events No recent Security Events currently on file CRITERIA MET - 6 ED Visits in 6 Months - [facility] - Has Care Guidelines - History of Sepsis Dx - [facility] - 2 Visits in 30 Days CARE PROVIDERS JESSENIA GOSS [facility] 05/09/2020-Current PHONE: [phone] [facility]Current HARDIK Van PHONE: [phone] Alina Clark Outside Contractor Sales/Tab Builder 08/31/2018-Current PHONE: [phone] Agapito has no Care Guidelines for this patient. Care History Medical/Surgical 05/17/2020 [facility] Called PCP office to verify respiratory medication regimine. Patient has been prescribed DANA\T\#39;s in MDI and nebulizor form and triple therapy for mantanence inhaled medication. Patient\T\#39;s pharmacy history indicates that he is filling his inhaled medications. Will call patient\T\#39;s home visit field care manager to offer inhaler training. 11/10/2019 [facility] - PLEASE MAKE SURE- ALL RECORDS ARE SENT TO DR ACUNA-PATIENT ALARM SECURITY OR SURVEILLANCE MONITOR IN [place]. 05/28/2018 [facility] - Patient currently sees airplane electrician Dr Acuna and patient has last seen [...] ED please contact Community Health WorkerLizzy at [phone]. These are guidelines and the provider should exercise clinical judgment when providing care. E.D. VISIT COUNT (12 MO.) 11 [facility]. TOTAL 11 NOTE: Visits indicate total known visits. ED/UCC VISIT TRACKING (12 MO.) 08/15/2020 13:19 [facility] [place] TYPE: Emergency COMPLAINT: - SOB 08/01/2020 23:03 [facility] [place] TYPE: Emergency COMPLAINT: - CHEST PAIN DIAGNOSES: - Dependence on renal dialysis - continuous churn buttermaker (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 of insulin - Chest pain, unspecified - Chronic kidney disease, stage 4 (severe) - Heart failure, unspecified - Hypertensive heart and chronic kidney disease with heart fail - Nicotine dependence, unspecified, uncomplicated - Other assisted (current) drug therapy - Type 2 diabetes mellitus with diabetic chronic kidney disease - Chronic obstructive pulmonary disease, unspecified 06/08/2020 06:43 [facility] [place] TYPE: Emergency COMPLAINT: - WEAKNESS, ABD PAIN DIAGNOSES: - Type 2 diabetes mellitus with diabetic chronic kidney disease - Other assisted (current) drug therapy - continuous churn buttermaker (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 of insulin - Allergy status to other drugs, medicaments and biological sub - Constipation, unspecified - Heart failure, unspecified - Hypertensive heart and chronic kidney disease with heart fail - Weakness - Chronic kidney disease, stage 4 (severe) - Gastro-esophageal reflux disease without esophagitis - Nicotine dependence, unspecified, uncomplicated - Chronic obstructive pulmonary disease, unspecified 05/16/2020 14:42 [facility] [place] TYPE: Emergency COMPLAINT: - CHEST PAIN DIAGNOSES: - Chronic obstructive pulmonary disease, unspecified - Other assisted (current) drug therapy - Allergy status to other drugs, medicaments and biological sub - continuous churn buttermaker (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 of insulin - Chest pain, unspecified - Personal history of nicotine dependence - Chronic kidney disease, stage 4 (severe) - Type 2 diabetes mellitus with diabetic chronic kidney disease - Heart failure, unspecified - Hypertensive heart and chronic kidney disease with heart fail 05/11/2020 17:15 [facility] [place] TYPE: Emergency COMPLAINT: - SOB, WEAK, HIGH PULSE RATE DIAGNOSES: - continuous churn buttermaker (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 of insulin - Heart failure, unspecified - FDC (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 of aspirin - Allergy status to other drugs, medicaments and biological sub - Weakness - Chronic kidney disease, stage 4 (severe) - Hypertensive heart and chronic kidney disease with heart fail - Chronic obstructive pulmonary disease, unspecified - Nicotine dependence, unspecified, uncomplicated - Other meterman (current) drug therapy - Type 2 diabetes [...] - Nicotine dependence, unspecified, uncomplicated - Other assisted (current) drug therapy - Chest pain, unspecified [...] with diabetic chronic kidney disease - Other assisted (current) drug therapy - Chronic obstructive pulmonary disease, unspecified - Personal history of nicotine dependence 11/04/2019 13:11 [facility] [place] TYPE: Emergency COMPLAINT: - MEMORY PROBLEM DIAGNOSES: - Heart failure, unspecified - Allergy status to other drugs, medicaments and biological sub - Anemia in chronic kidney disease - Other assisted (current) drug therapy - Personal history of nicotine dependence - Hypertensive heart and chronic kidney disease with heart fail - Chronic kidney disease, stage 4 (severe) - FDC (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 of insulin - Acute kidney failure, unspecified - Dependence on other enabling machines and devices - Vascular dementia without behavioral disturbance - FDC (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 of anticoagulants - FDC (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 of aspirin - Type 2 [...] nicotine dependence - Chest pain, unspecified - continuous churn buttermaker (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 of aspirin - Personal history of transient ischemic attack (TIA), and cere - continuous churn buttermaker (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 of insulin - Hypomagnesemia - Hypertensive heart and chronic kidney disease with heart fail - Chronic kidney disease, stage 4 (severe) - Other meterman (current) drug therapy 09/27/2019 12:22 [facility] [place] TYPE: Emergency COMPLAINT: - SOB INPATIENT VISIT TRACKING (12 MO.) 09/27/2019 16:43 [facility] [place] TYPE: Medical Surgical COMPLAINT: - PNA DIAGNOSES: - Adverse effect of other opioids, initial encounter - FDC (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 of antithrombotics/antiplatelets - Anemia in chronic kidney disease - Acquired absence of left leg above knee - 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 classified elsewh - Nicotine dependence, unspecified, uncomplicated - Panlobular emphysema - Panlobular emphysema - Type 2 diabetes mellitus with diabetic chronic kidney disease - FDC (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 of insulin - Allergy status to other drugs, medicaments and biological sub - Opioid dependence, uncomplicated - Other assisted (current) drug therapy - Nicotine dependence, unspecified, uncomplicated - Pneumonia due to Streptococcus pneumoniae - Chronic pain syndrome - Dependence on wheelchair - FDC (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 of insulin - Acquired absence [...] Hyperlipidemia, unspecified - Drug induced constipation - continuous churn buttermaker (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 of aspirin - Anemia in chronic kidney disease - 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
--- NOTE | 2020-08-16 11:20 | NUR ---
Heart failure ED follow up call. Spoke to daughter Charlotte. Discussed what HF is and sodium/fluid management. Will send her the Jorge Understanding HF book, low salt grocery list, spices, and better frozen meals handouts. Patient is not well enough to come in for complimentary heart failure education at this time. She will call when he is able.
--- NOTE | 2020-08-16 13:19 | EKG ---
[facility] [address] [facility] [place], [place] [address] Signed Normal sinus rhythm Nonspecific ST abnormality Abnormal ECG When compared with ECG of 01-AUG-2020 23:07, No significant change was found Confirmed by BROOKE FERNÁNDEZ DO ([id number]) on 08/16/2020 1:19:37 PM Electronically Signed By: BROOKE FERNÁNDEZ DO 08/16/20 1319 PATIENT NAME: LUCASPORFIRIO OSWALDO Electrocardiogram DATE OF : 40 PHYSICIAN: BROOKE FERNÁNDEZ DO REPORT #: [id number] REPORT IS CONFIDENTIAL AND NOT TO BE RELEASED WITHOUT AUTHORIZATION
== END 2020-08-15 17:20 | disposition home or self-care (01) ==
LOC: ED 13:19
DX: I13.0 Hypertensive heart and chronic kidney disease with heart failure and stage 1 through stage 4 chronic kidney disease, or unspecified chronic kidney disease (principal); E11.22 Type 2 diabetes mellitus with diabetic chronic kidney disease; N18.4 Chronic kidney disease, stage 4 (severe); I50.9 Heart failure, unspecified; R06.00 Dyspnea, unspecified; J44.9 Chronic obstructive pulmonary disease, unspecified; Z86.73 Personal history of transient ischemic attack (TIA), and cerebral infarction without residual deficits; F17.200 Nicotine dependence, unspecified, uncomplicated; Z88.8 Allergy status to other drugs, medicaments and biological substances; Z79.899 Other long term (current) drug therapy; Z79.4 Long term (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 of insulin; Z79.82 Long term (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 of aspirin
CPT/HCPCS: 71045; 80053; 83735; 83880; 84484; 85025; 93005; 93010; 96374; 96375; 99285-25; J1940; J2930

== ENCOUNTER 2020-08-16 18:30 | Inpatient (IN) | payer MEDICARE, OTHER ==
[~2020-08-16] VITALS: Ht 172.7 cm; Wt 83.7 kg
--- OUTSIDE RECORDS SUMMARY | ~2020-08-16 | XMS | Encounter Summary ---
Demographics + + + | Address | [address] | | | [place] [address] | + + + | Home Phone | | + + + | Preferred Language | Unknown | + + + | Marital Status | | + + + | Restorationism Affiliation | 1077 | + + + | Race | White | + + + | Ethnic Group | Not or | + + + Author + + + | Author | [facility] | | | and [place] | + + + | Organization | [facility] | | | and [...] Team Providers + +------+ + | Care Vessel Engineer Name | Role | Phone | + +------+ + | Rahul Silva MD | PCP | | + +------+ + Encounter Details +--------+ + + + + | Date | Type | Department | Care Team | Description | +--------+ + + + + | 09/17/ | Orders Only | [facility] | Collin Mirza, | | | 2016 | | NEPHROLOGY [place] | SENIOR SALES MANAGER [address] | | | | | [address] [place] | [address] | | | | | [address] [place], [place] | [address] | | | | | [address] | [address] | | | | | [phone] | | | | | | | | +--------+ + + + [...] on file | | + + + documented as of this encounter Plan of Treatment +--------+ + + + + | Date | Type | Specialty | Care Team | Description | +--------+ + + + + | 10/30/ | Virtual | Nephrology | Farrukh Acuna MD | | | 2019 | Office | | [address] [facility] | | | | Visit | | [address] [place] | | | | | | [address] | | | | | | | | +--------+ + + + + documented as of this encounter Procedures + +--------+ + + + | Procedure Name | Priori | Date/Time | Associated Diagnosis | Comments | | | ty | | | | + +--------+ + + + | VITAMIN D, | Routin | 09/17/2016 | | Results for this | | DEFICIENCY SCREEN | e | 1:35 PM | | procedure are in the | | (25-HYDROXY) | | PDT | | results section. | + +--------+ + + + | PARATHYROID HORMONE, | Routin | 09/17/2016 | | Results for this | | INTACT | e | 1:35 PM | | procedure are in the | | | | PDT | | results section. | + +--------+ + + + | MAGNESIUM | Routin | 09/17/2016 | | Results for this | | | e | 1:35 PM | | procedure are in the | | | | PDT | | results section. | + +--------+ + + + | RENAL FUNCTION PANEL | Routin | 09/17/2016 | | Results for this | | | e | 1:35 PM | | procedure are in the | | | | PDT | | results section. | + +--------+ + + + documented in this encounter Results Vitamin D, Deficiency Screen (25-Hydroxy) (09/17/2016 1:35 PM PDT) + +-------+ + + + | Component | Value | Ref Range | Performed | Pathologist | | | | | At | Signature | + +-------+ + + + | Vit D, | 36 | 30 - 100 | EXTERNAL | | | 25-Hydroxy | | | LAB | | + +-------+ + + + + + | Specimen | + + | Blood specimen | | (specimen) | + + + +---------+ + + | Performing | Address | City/State/Zipcode | Phone Number | | Organization | | | | + +---------+ + + | EXTERNAL LAB | | | | + +---------+ + + Parathyroid Hormone, Intact (09/17/2016 1:35 PM PDT) + + + + + + | Component | Value | Ref Range | Performed | Pathologist | | | | | At | Signature | + + + + + + | PTH INTACT | 79.82 (A) | 15 - 65 pg/mL | EXTERNAL | | | | | [...] | | | + +---------+ + + Magnesium (09/17/2016 1:35 PM PDT) + +---------+ + + + | Component | Value | Ref Range | Performed | Pathologist | | | | | At | Signature | + +---------+ + + + | Magnesium | 2.8 (A) | 1.7 - 2.5 mg/dL | EXTERNAL | | | | | | LAB | | + +---------+ + + + + + | Specimen | + + | Blood specimen | | (specimen) | + + + +---------+ + + | Performing | Address | City/State/Zipcode | Phone Number | | Organization | | | | + +---------+ + + | EXTERNAL LAB | | | | + +---------+ + + Renal Function Panel (09/17/2016 1:35 PM PDT) + + + + + + | Component | Value | Ref Range | Performed | Pathologist | | | | | At | Signature | + + + + + + | Glucose, | 278 (A) | 70 - 100 mg/dL | EXTERNAL | | | Fasting | | | LAB | | + + + + + + | BUN | 39 (A) | 6 - 23 mg/dL | EXTERNAL | | | | | | LAB | | + + + + + + | Creatinine | 2.30 (A) | 0.70 - 1.18 | EXTERNAL | | | | | mg/dL | LAB | | + + + + + + | PHOSPHORUS | | mg/dL | EXTERNAL | | | | | | LAB | | + + + + + + | Albumin | 3.1 (A) | 3.5 - 5.0 | EXTERNAL | | | | | | LAB | | + + + + + + | Na | 135 | 132 - 143 | EXTERNAL | | | | | mmol/L | LAB | | + + + + + + | K | 4.9 | 3.6 - 5.1 | EXTERNAL | | | | | mmol/L | LAB | | + + + + + + | Cl | 105 | 95 - 112 mmol/L | EXTERNAL | | | | | | LAB | | + + + + + + | CO2 | 21 | 19 - 31 mmol/L | EXTERNAL | | | | | | LAB | | + + + + + + | Anion Gap | 13.9 | 7 - 21 mmol/L | EXTERNAL | | | | | | LAB | | + + + + + + | eGFR, | | | EXTERNAL | | | non- | | | LAB | | | Irish | | | | | + + + + + + | Phosphorus, | 4.2 | 2.5 - 5.0 | EXTERNAL | | | Inorganic | | | LAB | | + + + + + + | BUN/Creatin | 17.0 (A) | 60 - 28.6 | EXTERNAL | | | ine Ratio | | | LAB | | + + + + + + | Calcium | 8.3 (A) | 8.4 - 10.2 | EXTERNAL | | | | | mg/dL | LAB | | + + + + + + | Estimated | 28 | mg/dL | EXTERNAL | | | [...]
--- OUTSIDE RECORDS SUMMARY | ~2020-08-16 | XMS | Encounter Summary ---
Demographics + + + | Address | [address] | | | [place] [address] | + + + | Home Phone | | + + + | Preferred Language | Unknown | + + + | Marital Status | | + + + | Judaism Affiliation | 1077 | + + + | Race | White | + + + | Ethnic Group | Not or | + + + Author + + + | Author | [facility] | | | and [place] | + + + | Organization | [facility] | | | [...] Team Providers + +------+ + | Care Application Developer Manager Name | Role | Phone | + +------+ + | Rahul Silva MD | PCP | | + +------+ + Encounter Details +--------+ + + + + | Date | Type | Department | Care Team | Description | +--------+ + + + + | 05/27/ | Orders Only | [facility] | Conversion | | | 2019 | | NEPHROLOGY [place] | Transaction, | | | | | [address] | Provider Unknown | | | | | [address] [place] | | | | | | [address] | (Fax) | | | | | [phone] | | | +--------+ + + + [...] 2019 | Office | | [address] [facility] | | | | Visit | | [facility] | | | | | | [address] | | | | | | | | +--------+ + + + + documented as of this encounter Procedures + +--------+ + + + | Procedure Name | Priori | Date/Time | Associated Diagnosis | Comments | | | ty | | | | + +--------+ + + + | IRON AND IRON | Routin | 05/27/2019 | | Results for this | | BINDING CAPACITY | e | 3:26 PM | | procedure are in the | | | | PDT | | results section. | + +--------+ + + + documented in this encounter Results Iron and Iron Binding Capacity (05/27/2019 3:26 PM PDT) + + + + + + | Component | Value | Ref Range | Performed | Pathologist | | | | | At | Signature | + + + + + + | Iron | 52.91 | 37 - 160 | EXTERNAL | | | | | | LAB | | + + + + + + | Iron | 19.5 (A) | 20 - 55 | EXTERNAL | | | Saturation | | | LAB | | + + + + + + | TIBC | 272 | 245 - 400 | EXTERNAL | [...]
--- OUTSIDE RECORDS SUMMARY | ~2020-08-16 | XMS | Encounter Summary ---
Demographics + + + | Address | [address] | | | [place] [address] | + + + | Home Phone | | + + + | Preferred Language | Unknown | + + + | Marital Status | | + + + | Spiritism Affiliation | 1077 | + + + | Race | White | + + + | Ethnic Group | Not or | + + + Author + + + | Author | [facility] | | | and [place] | + + + | Organization | [facility] | | | [...] Team Providers + +------+ + | Care Delivery Rn Name | Role | Phone | + [...] | | | [address] [place] | [place] [address] | | | | | [place] [address] | | | | | | [phone] | | | +--------+ + + + [...] | Office | | [address] [facility] | | | | Visit | | [address] [place] | | | | | | [address] | | | | | | | | +--------+ + + + + documented as of this encounter Procedures + +--------+ + + + | Procedure Name | Priori | Date/Time | Associated Diagnosis | Comments | | | ty | | | | + +--------+ + + + | XR CHEST AP PORTABLE | Routin | 09/27/2019 | | Results for this | | | e | 12:00 AM | | procedure are in the | | | | PDT | | results section. | + +--------+ + + + documented in this encounter Results XR Chest AP Portable (09/27/2019 12:00 AM PDT) + + | Specimen [...]
--- OUTSIDE RECORDS SUMMARY | ~2020-08-16 | XMS | Encounter Summary ---
Demographics + + + | Address | [address] | | | [place] [address] | + + + | Home Phone | | + + + | Preferred Language | Unknown | + + + | Marital Status | | + + + | Mosque Affiliation | 1077 | + + + | Race | White | + + + | Ethnic Group | Not or | + + + Author + + + | Author | [facility] | | | and [place] | + + + | Organization | [facility] | | | [...] Team Providers + +------+ + | Care Marketing Technology Coordinator Name | Role | Phone | + +------+ + | Mehrdad Bergman PCP | | + +------+ + Reason for Visit + +--------+ + | Reason | Onset | Comments | | | Date | | + +--------+ + | Medication Refill | 03/14/ | | | | 2020 | | + +--------+ + Encounter Details +--------+--------+ + + + | Date | Type | Department | Care Team | Description | +--------+--------+ + + + | 03/14/ | Refill | [facility] | Farrukh Acuna MD | Medication Refill | | 2019 | | NEPHROLOGY [place] | [address] [place] | | | | | [address] | [address] [place], [place] | | | | | [address] | [address] | | | | | [place], [place] | | | | | | [address] | | | | | | [phone] | | | +--------+--------+ + + + Social History + +-------+ [...] 2020 | Office | | [address] [facility] | | | | Visit | | [address] [place], [place] | | | | | | [address] | | | | | | | | +--------+ + + + + documented as of this encounter Visit Diagnoses + + | Diagnosis | + + | Essential hypertension - Primary Unspecified essential hypertension | + + | Persistent proteinuria Proteinuria | + + | CKD (chronic kidney disease) stage 5, GFR less than 15 ml/min (HCC) Chronic kidney | | disease, Stage V | + + documented in this encounter"
--- OUTSIDE RECORDS SUMMARY | ~2020-08-16 | XMS | Encounter Summary ---
Demographics + + + | Address | [address] | | | [place] [address] | + + + | Home Phone | | + + + | Preferred Language | Unknown | + + + | Marital Status | | + + + | Restorationism Affiliation | 1077 | + + + | Race | White | + + + | Ethnic Group | Not or | + + + Author + + + | Author | [facility] | | | and [place] | + + + | Organization | [facility] | | | [...] Team Providers + +------+ + | Care Litharge Mill Operator Name | Role | Phone | + +------+ + | Rauhl Silva MD | PCP | | + +------+ + Reason for Visit +--------+--------+ + | Reason | Onset | Comments | | | Date | | +--------+--------+ + | Other | 12/07/ | Blood pressure concern. | | | 2019 | | +--------+--------+ + Encounter Details +--------+ + + + + | Date | Type | Department | Care Team | Description | +--------+ + + + + | 12/07/ | Telephone | [facility] | Farrukh Acuna MD | Other (Blood | | 2020 | | NEPHROLOGY [place] | [address] [place] | pressure concern. ) | | | | [address] [place] | [address] [facility] [place] | | | | | [address] [place], [place] | [id number] | | | | | [address] | | | | | | [phone] | | | +--------+ + + + [...] Miscellaneous Notes Telephone Encounter - Trinidad Simon Advisor Advocate Angel Co Founder - 12/07/2019 5:29 PM PSTPatie nts daughter Charlotte called because she is concerned that patient B/P is too low. She states that patients B/P was 142/35 she would like to know if he should stop the lisinopril. Per Dr Ledy Acuna this blood pressure is not concerning. Called patients daughter and informed her of this she verbalized understanding and had no f urther questions at this time. documented in this encounter Plan of Treatment +--------+ + + + + | Date | Type | Specialty | Care Team | Description | +--------+ + + + + | 10/30/ | Virtual | Nephrology | Farrukh Acuna MD | | 2019 | Office | | [address] [facility] | | | | Visit | | [address] [place], [place] | | | | | | [address] | | | | | | | | +--------+ + + + + documented as of this encounter Visit Diagnoses Not on filedocumented in this encounter"
--- OUTSIDE RECORDS SUMMARY | ~2020-08-16 | XMS | Encounter Summary ---
Demographics + + + | Address | [address] | | | [place] [address] | + + + | Home Phone | | + + + | Preferred Language | Unknown | + + + | Marital Status | | + + + | Orthodox Affiliation | 1077 | + + + [...] Team Providers + +------+ + | Care Valve Assembler Name | Role | Phone | + +------+ + | Rahul Silva MD | PCP | | + +------+ + Encounter Details +--------+ + + + + | Date | Type | Department | Care Team | Description | +--------+ + + + + | 11// | Orders Only | [facility] | Farrukh Acuna MD | Essential | | 2019 | | NEPHROLOGY [place] | [address] [place] | hypertension | | | | [address] | [address] [place], [place] | (Primary Dx); Iron | | | | [address] | [address] | deficiency; | | | | [place], [place] | | Secondary | | | | [address] | | hyperparathyroidism | | | | [phone] | | (HCC); CKD (chronic | | | | | | kidney disease) | | | | | | stage 5, GFR less | | | | | | than 15 ml/min ([facility]) | +--------+ + + + + Social [...] 2019 | Office | | [address] [facility] [place] | | | | Visit | | [address] [place], [place] | | | | | | [address] | | | | | | | | +--------+ + + + + + +------+--------+ + + | Name | Type | Priori | Associated Diagnoses | Order Schedule | | | | ty | | | + +------+--------+ + + | Basic Metabolic | Lab | Routin | Essential | Expected: | | Panel | | e | hypertension Iron | 10/19/2019, Expires: | | | | | deficiency CKD | 10/05/2020 | | | | | (chronic kidney | | | | | | disease) stage 5, | | | | | | GFR less than 15 | | | | | | ml/min ([facility]) | | + +------+--------+ + + | CBC with | Lab | Routin | Essential | Expected: | | Differential | | e | hypertension Iron | 10/19/2019, Expires: | | | | | deficiency CKD | 10/05/2020 | | | | | (chronic kidney | | | | | | disease) stage 5, | | | | | | GFR less than 15 | | | | | | ml/min (HCC) | | + +------+--------+ + + | Renal Function Panel | Lab | Routin | Essential | Expected: | | | | e | hypertension Iron | 12/05/2019, Expires: | | | | | deficiency CKD | 10/05/2020 | | | | | (chronic kidney | | | | | | disease) stage 5, | | | | | | GFR less than 15 | | | | | | ml/min (HCC) | | + +------+--------+ + + | CBC with | Lab | Routin | Essential | Expected: | | Differential | | e | hypertension Iron | 12/05/2019, Expires: | | | | | deficiency CKD | 10/05/2020 | | | | | (chronic kidney | | | | | | disease) stage 5, | | | | | | GFR less than 15 | | | | | | ml/min (HCC) | | + +------+--------+ + + | Magnesium | Lab | Routin | Essential | Expected: | | | | e | hypertension Iron | 12/05/2019, Expires: | | | | | deficiency CKD | 10/05/2020 | | | | | (chronic kidney | | | | | | disease) stage 5, | | | | | | GFR less than 15 | | | | | | ml/min (HCC) | | + +------+--------+ + + | Iron and Iron | Lab | Routin | Essential | Expected: | | Binding Capacity | | e | hypertension Iron | 12/05/2019, Expires: | | | | | deficiency CKD | 10/05/2020 | | | | | (chronic kidney | | | | | | disease) stage 5, | | | | | | GFR less than 15 | | | | | | ml/min (HCC) | | + +------+--------+ + + | Ferritin | Lab | Routin | Essential | Expected: | | | | e | hypertension Iron | 12/05/2019, Expires: | | | | | deficiency CKD | 10/05/2020 | | | | | (chronic kidney | | | | | | disease) stage 5, | | | | | | GFR less than 15 | | | | | | ml/min (HCC) | | + +------+--------+ + + | Parathyroid Hormone, | Lab | Routin | Essential | Expected: | | Intact | | e | hypertension Iron | 12/05/2019, Expires: | | | | | deficiency | 10/05/2020 | | | | | Secondary | | | | | | hyperparathyroidism | | | | | | ([facility]) CKD (chronic | | | | | | kidney disease) | | | | | | stage 5, GFR less | | | | | | than 15 ml/min ([facility]) | | + +------+--------+ + + documented as of this encounter Visit Diagnoses + + | Diagnosis | + + | Essential hypertension - Primary Unspecified essential hypertension | + + | Iron deficiency Other disorders of iron metabolism | + + | Secondary hyperparathyroidism (HCC) Secondary hyperparathyroidism (of renal origin) | + + | CKD (chronic kidney disease) stage 5, GFR less than 15 ml/min (HCC) Chronic kidney | | disease, Stage V | + + documented in this encounter"
--- OUTSIDE RECORDS SUMMARY | ~2020-08-16 | XMS | Clinical Summary ---
Demographics + + + | Address | [address] | | | [place] [address] | + + + | Home Phone | | + + + | Preferred Language | Unknown | + + + | Marital Status | Single | + + + | Jain Affiliation | PRO | + + + | Race | White | + + + | Ethnic Group | Not or | + + + Author + + + | Author | [facility] | + + + | Organization | [facility] | + + + | Address | Unknown | + + + | Phone | Unavailable | + + + Support + + + + + | Name | Relationship | Address | Phone | + + + + + | Darci Andujar | [address] | [place] | | | | | [address] | | + + + + + Care Team Providers + +------+ + | Care Manager Room Name | Role | Phone | + +------+ + | Rahul Silva MD | PCP | | + +------+ + Source Comments DAKOTA is fully live on both [facility] and [facility] Allergies No Known Allergies Medications + + + +---------+------+------+-------+ | Medication | Sig | Dispensed | Refills | Star | End | Statu | | | | | | t | Date | s | | | | | | Date | | | + + + +---------+------+------+-------+ | oxycodone, | Take 15 mg by mouth | | 0 | 05/1 | | Activ | | immediate release, | every three hours as | | | 1/20 | | e | | 15 mg Oral Tablet | needed. | | | 10 | | | + + + +---------+------+------+-------+ | hydromorphone 2 mg | Take 2 mg by mouth | | 0 | 05/1 | | Activ | | Oral Tablet | every two hours as | | | 1/20 | | e | | | needed. | | | 10 | | | + + + +---------+------+------+-------+ | atenolol 50 mg | Take 50 mg by mouth | | 0 | | | Activ | | Oral Tablet | once daily. | | | | | e | + + + +---------+------+------+-------+ | atorvastatin | Take 80 mg by mouth | | 0 | | | Activ | | (LIPITOR) 80 mg Oral | once daily. | | | | | e | | Tablet | | | | | | | + + + +---------+------+------+-------+ | glimepiride 4 mg | Take 4 mg by mouth | | 0 | | | Activ | | Oral Tablet | once daily with | | | | | e | | | breakfast. | | | | | | + + + +---------+------+------+-------+ | amlodipine | Take 5 mg by mouth | | 0 | | | Activ | | (NORVASC) 5 mg Oral | once daily. | | | | | e | | Tablet | | | | | | | + + + +---------+------+------+-------+ | metolazone 5 mg | Take 5 mg by mouth | | 0 | | | Activ | | Oral Tablet | once daily. | | | | | e | + + + +---------+------+------+-------+ | levothyroxine 50 | Take 50 mcg by mouth | | 0 | | | Activ | | mcg Oral Tablet | once daily. | | | | | e | + + + +---------+------+------+-------+ | lisinopril 40 mg | Take 40 mg by mouth | | 0 | | | Activ | | Oral Tablet | once daily. | | | | | e | + + + +---------+------+------+-------+ | clopidogrel | Take 75 mg by mouth | | 0 | | | Activ | | (PLAVIX) 75 mg Oral | once daily. | | | | | e | | Tablet | | | | | | | + + + +---------+------+------+-------+ | doxepin 150 mg | Take 10 mg by mouth | | 0 | | | Activ | | Oral Capsule | once daily at | | | | | e | | | bedtime. | | | | | | + + + +---------+------+------+-------+ | duloxetine | Take 60 mg by mouth | | 0 | | | Activ | | (CYMBALTA) 60 mg | once daily. | | | | | e | | Oral Capsule, | | | | | | | | Delayed | | | | | | | | Release(E.C.) | | | | | | | + + + +---------+------+------+-------+ | gabapentin 600 mg | Take 1,200 mg by | | 0 | 03/31 | | Activ | | Oral Tablet | mouth four times | | | 12/20 | | e | | | daily. | | | 10 | | | + + + +---------+------+------+-------+ Active Problems + + + | Problem | Noted Date | + + + | Low back pain | 04/10/2010 | + + + | Herniated lumbar intervertebral disc | 04/10/2010 | + + + | Stump pain | 04/10/2010 | + + + Family [...] Pressure | 140/54 | 04/10/2010 1:36 PM | | | | | PDT | | + + + + + | Pulse | 80 | 04/10/2010 1:36 PM | | | | | PDT | | + + + + + | Temperature | 37.1 C (98.8 F) | 04/10/2010 1:36 PM | | | | | PDT | | + + + + + | Respiratory Rate | 16 | 04/10/2010 1:36 PM | | | | | PDT | | + + + + + | Oxygen Saturation | 96% | 04/10/2010 1:36 PM | | | | | PDT | | + + + + + | Inhaled Oxygen | - | - | | | Concentration | | | | + + + + + | Weight | 89.4 kg (197 lb) | 04/10/2010 1:36 PM | | | | | PDT | | + + + + + | Height | 170.2 cm (5' 7") | 04/10/2010 1:36 PM | | | | | PDT | | + + + + + | Body Mass Index | 30.85 | 04/10/2010 1:36 PM | | | | | PDT | | + + + + + Plan of Treatment + + +-------+ + | Health Maintenance | Due Date | Last | Comments | | | | Done | | + + +-------+ + | Pneumococcal | | | | | vaccination (1 | 5 | | | | - PPSV23) | | | | + + +-------+ + | Influenza (Flu) | | | | | vaccination (#1) | 0 | | | + + +-------+ + Results Not on filefrom Last 3 Months
--- OUTSIDE RECORDS SUMMARY | ~2020-08-16 | XMS | Encounter Summary ---
Demographics + + + | Address | [address] | | | [place] [address] | + + + | Home Phone [...] Team Providers + +------+ + | Care Info Analyst Name | Role | Phone | [...] | | [address] [place] | [place] [address] | | | | | [place] [id number] | | | | | | [phone] | | | +--------+ + + + + Social History + +-------+ +--------+ + | Tobacco Use | Types | Packs/Day | Years | Date | | | | | Used | | + +-------+ +--------+ + | Former Smoker | | 1 | 59 | Quit: 09/27/2019 | + +-------+ +--------+ + + +------+---+---+ [...] 2020 | Office | | [address] [facility] | | | | Visit | | [address] [place] | | | | | | [address] | | | | | | | | +--------+ + + + + documented as of this encounter Procedures + +--------+ + + + | Procedure Name | Priori | Date/Time | Associated Diagnosis | Comments | | | ty | | | | + +--------+ + + + | XR CHEST 1 VIEW | Routin | 11/18/2019 | | Results for this | | | e | 12:00 AM | | procedure are in the | | | | PST | | results section. | + +--------+ + + + documented in this encounter Results XR Chest 1 Vw (11/18/2019 12:00 AM PST) + + | Specimen [...]
--- OUTSIDE RECORDS SUMMARY | ~2020-08-16 | XMS | Encounter Summary ---
Demographics + + + | Address | [address] | | | [place] [address] | + + + | Home Phone | | + + + | Preferred Language | Unknown | + + + | Marital Status | | + + + | Uatsdin Affiliation | 1077 | + + + | Race | White | + + + | Ethnic Group | Not or | + + + Author + + + | Author | [facility] | | | and [place] | + + + | Organization | [facility] | | [...] Providers + +------+ + | Care Director Imaging Name | Role | Phone | + +------+ + | Mehrdad Bergman | PCP | | + +------+ + Reason for Visit +---------+ + | Reason | Comments | +---------+ + | Results | loco-05/29/2020 | +---------+ + Encounter Details +--------+ + + + + | Date | Type | Department | Care Team | Description | +--------+ + + + + | 05/31/ | Documentati | [facility] | Ami Cole, | Results | | 2020 | on | NE[place]HOLOGY [place] | Ribbon Blocker | (interpath-05/29/2020 | | | | [address] | | ) | | | | [address] [place], [place] | | | | | | [address] | | | | | | [phone] | | | +--------+ + + + [...] 2019 | Office | | [address] [facility] [address] | | | | Visit | | [address] [place], [place] | | | | | | [address] | | | | | | | | +--------+ + + + + documented as of this encounter Procedures + +--------+ + + + | Procedure Name | Priori | Date/Time | Associated Diagnosis | Comments | | | ty | | | | + +--------+ + + + | PTH + CALCIUM | Routin | 05/29/2020 | | Results for this | | | e | | | procedure are in the | | | | | | results section. | + +--------+ + + + | IRON AND IRON | Routin | 05/29/2020 | | Results for this | | BINDING CAPACITY | e | | | procedure are in the | | | | | | results section. | + +--------+ + + + | PROTEIN/CREATININE | Routin | 05/29/2020 | | Results for this | | RATIO, URINE | e | | | procedure are in the | | | | | | results section. | + +--------+ + + + | CBC WITH | Routin | 05/29/2020 | | Results for this | | DIFFERENTIAL | e | | | procedure are in the | | | | | | results section. | + +--------+ + + + | FERRITIN | Routin | 05/29/2020 | | Results for this | | | e | | | procedure are in the | | | | | | results section. | + +--------+ + + + | RENAL FUNCTION PANEL | Routin | 05/29/2020 | | Results for this | | | e | | | procedure are in the | | | | | | results section. | + +--------+ + + + documented in this encounter Results PTH + Calcium (05/29/2020) + + + + + + | Component | Value | Ref Range | Performed | Pathologist | | | | | At | Signature | + + + + + + | Calcium | 8.8 | 8.5 - 10.3 | | | + + + + + + | PTH INTACT | 94.73 (A) | 15 - 65 pg/mL | | | + + + + + + + + | Specimen | + + | Blood | + + CBC with Differential (05/29/2020) + + + + + + | Component | Value | Ref Range | Performed | Pathologist | | | | | At | Signature | + + + + + + | WBC | 8.4 | 4.5 - 11.0 | | | | | | 10*3/uL | | | + + + + + + | Red Blood | 3.31 (A) | 4.3 - 5.7 | | | | Cells | | | | | + + + + + + | Hemoglobin | 9.7 (A) | 13.5 - 18.0 | | | | | | g/dL | | | + + + + + + | Hematocrit | 30.2 (A) | 41.0 - 50.0 % | | | + + + + + + | MCV | 91.2 | 81.0 - 99.0 fL | | | + + + + + + | MCH | 29 | 27 - 33 | | | + + + + + + | MCHC | 32.0 | 30.0 - 36.0 | | | | | | g/dL | | | + + + + + + | RDW | 16 (A) | 10.5 - 15 | | | + + + + + + | Platelet | 278 | 140 - 440 K/uL | | | | Count | | | | | + + + + + + + + | Specimen | + + | Blood | + + Ferritin (05/29/2020) + +-------+ + + + | Component | Value | Ref Range | Performed | Pathologist | | | | | At | Signature | + +-------+ + + + | Ferritin | 299.9 | 30.0 - 400.0 | | | | | | ng/mL | | | + +-------+ + + + + + | Specimen | + + | Blood | + + Iron and Iron Binding Capacity (05/29/2020) + +--------+ + + + | Component | Value | Ref Range | Performed | Pathologist | | | | | At | Signature | + +--------+ + + + | Iron | 44 | 37 - 160 ug/dL | | | + +--------+ + + + | Iron | 18 (A) | 20 - 55 % | | | | Saturation | | | | | + +--------+ + + + | TIBC | 249 | 245 - 400 ug/dL | | | + +--------+ + + + + + | Specimen | + + | Blood | + + Renal Function Panel (05/29/2020) + + + + + + | Component | Value | Ref Range | Performed | Pathologist | | | | | At | Signature | + + + + + + | Glucose, | 250 (A) | 70 - 100 mg/dL | | | | Fasting | | | | | + + + + + + | BUN | 50 (A) | 6 - 23 mg/dL | | | + + + + + + | Creatinine | 4.11 (A) | 0.70 - 1.18 | | | + + + + + + | PHOSPHORUS | 4.9 | 2.5 - 5.0 | | | + + + + + + | Albumin | 3.2 (A) | 3.5 - 5.0 g/dL | | | + + + + + + | Na | 139 | 132 - 143 | | | | | | mmol/L | | | + + + + + + | K | 4.3 | 3.2 - 5.7 | | | | | | mmol/L | | | + + + + + + | Cl | 103 | 95 - 112 mmol/L | | | + + + + + + | CO2 | 21 | 19 - 31 mmol/L | | | + + + + + + | Anion Gap | 19 | 7 - 21 mmol/L | | | + + + + + + | Estimated | 14.0 | >60 | | | | GFR | | mL/min/1.73m2 | | | + + + + + + | BUN/Creatin | 12.2 | 6 - 28.6 | | | | ine Ratio | | | | | + + + + + + | Calcium | 8.8 | 8.5 - 10.3 | | | + + + + + + + + | Specimen | + + | Blood | + + Protein/Creatinine Ratio, Urine (05/29/2020) + + + + + + | Component | Value | Ref Range | Performed | Pathologist | | | | | At | Signature | + + + + + + | Protein, Ur | 159 (A) | 0 - 50 | | | + + + + + + | Creatinine, | 36.11 | | | | | Urine | | | | | + + + + + + | Protein/Cre | 4,403.2 (A) | 0 - 150 | | | | at Ratio | | | | | + + + + + + + + | Specimen | + + | Urine | + + documented in this encounter Visit Diagnoses Not on filedocumented in this encounter"
--- OUTSIDE RECORDS SUMMARY | ~2020-08-16 | XMS | Encounter Summary ---
Demographics + + + | Address | [address] | | | [place] [address] | + + + | Home Phone | | + + + | Preferred Language | Unknown | + + + | Marital Status | | + + + | Mandaen Affiliation | 1077 | + + + [...] Team Providers + +------+ + | Care Ordnance Technician Name | Role | Phone | + [...] [address] | | | | | [place], [place] | [place], [place] | | | | | [address] | [address] | | | | | [phone] | | | | | | | [...] 2020 | Office | | [address] [facility] | | | | Visit | | [address] [place] | | | | | | [address] | | | | | | | | +--------+ + + + + documented as of this encounter Procedures + +--------+ + + + | Procedure Name | Priori | Date/Time | Associated Diagnosis | Comments | | | ty | | | | + +--------+ + + + | AMYLASE | Routin | 11/11/2016 | | Results for this | | | e | 4:26 AM | | procedure are in the | | | | PST | | results section. | + +--------+ + + + documented in this encounter Results Amylase (11/11/2016 4:26 AM PST) + +---------+ + + + | Component | Value | Ref Range | Performed | Pathologist | | | | | At | Signature | + +---------+ + + + | Amylase | 137 (H) | 25 - 115 U/L | EXTERNAL | | | | [...]
--- OUTSIDE RECORDS SUMMARY | ~2020-08-16 | XMS | Encounter Summary ---
Demographics + + + | Address | [address] | | | [place] [address] | + + + | Home Phone | | + + + | Preferred Language | Unknown | + + + | Marital Status | | + + + | Mormonism Affiliation | 1077 | + + + [...] Team Providers + +------+ + | Care House Worker Name | Role | Phone | + +------+ + | Rahul Silva MD | PCP | | + +------+ + Encounter Details +--------+ + + + + | Date | Type | Department | Care Team | Description | +--------+ + + + + | 10/27/ | Orders Only | [facility] | Conversion | | | 2016 | | NEPHROLOGY [place] | Transaction, | | | | | [address] | Provider Unknown | | | | | [address] [place] | | | | | | [address] | (Fax) | | | | | [phone] | | | +--------+ + + + [...] 2019 | Office | | [address] [facility] | | | | Visit | | [facility] | | | | | | [address] | | | | | | | | +--------+ + + + + documented as of this encounter Procedures + +--------+ + + + | Procedure Name | Priori | Date/Time | Associated Diagnosis | Comments | | | ty | | | | + +--------+ + + + | LIPID PANEL | Routin | 10/27/2017 | | Results for this | | | e | 12:25 PM | | procedure are in the | | | | PST | | results section. | + +--------+ + + + | HEMOGLOBIN A1C | Routin | 10/27/2017 | | Results for this | | | e | 12:25 PM | | procedure are in the | | | | PST | | results section. | + +--------+ + + + documented in this encounter Results Hemoglobin A1C (10/27/2017 12:25 PM PST) + +-------+ + + + | Component | Value | Ref Range | Performed | Pathologist | | | | | At | Signature | + +-------+ + + + | Hemoglobin | 7.6 | % | EXTERNAL | | | A1c | | | LAB | | + +-------+ + + + + + | Specimen | + + | Blood specimen | | (specimen) | + + + +---------+ + + | Performing | Address | City/State/Zipcode | Phone Number | | Organization | | | | + +---------+ + + | EXTERNAL LAB | | | | + +---------+ + + Lipid Panel (10/27/2017 12:25 PM PST) + +---------+ + + + | Component | Value | Ref Range | Performed | Pathologist | | | | | At | Signature | + +---------+ + + + | Cholesterol | 146 | mg/dL | EXTERNAL | | | | | | LAB | | + +---------+ + + + | Triglycerid | 270 (A) | 30 - 150 mg/dL | EXTERNAL | | | es | | | LAB | | + +---------+ + + + | HDL | 29.9 | mg/dl | EXTERNAL | | | | | | LAB | | + +---------+ + + + | LDL, | 62 | mg/dL | EXTERNAL | | | Calculated | | | LAB | | + +---------+ + + + | LDl/HDL | | | EXTERNAL | | | Ratio | | | LAB | | + +---------+ + + + | Chol/HDL | 4.9 | | EXTERNAL | | | Ratio | | | LAB | | + +---------+ + + + | VLDL | 54 (A) | 4 - 40 mg/dL | EXTERNAL | | | | | | LAB | | + +---------+ + + + | Non HDL | 116 | | EXTERNAL | | | Chol. | | | LAB | | | (LDL+VLDL) | | | | | + +---------+ + + + [...]
--- OUTSIDE RECORDS SUMMARY | ~2020-08-16 | XMS | Encounter Summary ---
Demographics + + + | Address | [address] | | | [place] [address] | + + + | Home Phone | | + + + | Preferred Language | Unknown | + + + | Marital Status | | + + + | Moravian Affiliation | 1077 | + + + | Race | White | + + + | Ethnic Group | Not or | + + + Author + + + | Author | [facility] | | | and [place] | + + + | Organization | [facility] | | [...] Team Providers + +------+ + | Care Assembler Utility Buildings Name | Role | Phone | + [...] 2016 | | [address] | [address] [facility] | | | | | [place], [place] | [address] [place], [place] | | | | | [address] | [address] | | | | | [phone] | | | +--------+ + + + [...] 2020 | Office | | [address] [facility] | | | | Visit | | [address] [place] | | | | | | [address] | | | | | | | [...]
--- OUTSIDE RECORDS SUMMARY | ~2020-08-16 | XMS | Encounter Summary ---
Demographics + + + | Address | [address] | | | [place] [address] | + + + | Home Phone | | + + + | Preferred Language | Unknown | + + + | Marital Status | | + + + | Jewish Affiliation | 1077 | + + + | Race | White | + + + | Ethnic Group | Not or | + + + Author + + + | Author | [facility] | | | and [place] | + [...] Team Providers + +------+ + | Care Tracer Powder Blender Name | Role | Phone | + +------+ + | Rahul Silva MD | PCP | | + +------+ + Encounter Details +--------+ + + + + | Date | Type | Department | Care Team | Description | +--------+ + + + + | 05/27/ | Orders Only | [facility] | Farrukh Acuna MD | | | 2017 | | NEPHROLOGY [place] | [address] [place] | | | | | [address] [place] | [address] [place], [place] | | | | | [address] [place], [place] | [address] | | | | | [address] | | | | | | [phone] | | | +--------+ + + + [...] 2020 | Office | | [address] [facility] | | | | Visit | | [address] [place], [place] | | | | | | [address] | | | | | | | | +--------+ + + + + documented as of this encounter Procedures + +--------+ + + + | Procedure Name | Priori | Date/Time | Associated Diagnosis | Comments | | | ty | | | | + +--------+ + + + | EXTERNAL LAB: CBC | Routin | 05/27/2017 | | Results for this | | | e | 1:31 PM | | procedure are in the | | | | PDT | | results section. | + +--------+ + + + | IRON AND IRON | Routin | 05/27/2017 | | Results for this | | BINDING CAPACITY | e | 1:31 PM | | procedure are in the | | | | PDT | | results section. | + +--------+ + + + | PROTEIN/CREATININE | Routin | 05/27/2017 | | Results for this | | RATIO, URINE | e | 1:31 PM | | procedure are in the | | | | PDT | | results section. | + +--------+ + + + | URIC ACID | Routin | 05/27/2017 | | Results for this | | | e | 1:31 PM | | procedure are in the | | | | PDT | | results section. | + +--------+ + + + | TRANSFERRIN | Routin | 05/27/2017 | | Results for this | | | e | 1:31 PM | | procedure are in the | | | | PDT | | results section. | + +--------+ + + + | PARATHYROID HORMONE, | Routin | 05/27/2017 | | Results for this | | INTACT | e | 1:31 PM | | procedure are in the | | | | PDT | | results section. | + +--------+ + + + | MAGNESIUM | Routin | 05/27/2017 | | Results for this | | | e | 1:31 PM | | procedure are in the | | | | PDT | | results section. | + +--------+ + + + | FERRITIN | Routin | 05/27/2017 | | Results for this | | | e | 1:31 PM | | procedure are in the | | | | PDT | | results section. | + +--------+ + + + | RENAL FUNCTION PANEL | Routin | 05/27/2017 | | Results for this | | | e | 1:31 PM | | procedure are in the | | | | PDT | | results section. | + +--------+ + + + documented in this encounter Results Iron and Iron Binding Capacity (05/27/2017 1:31 PM PDT) + + + + + + | Component | Value | Ref Range | Performed | Pathologist | | | | | At | Signature | + + + + + + | Iron | 39.12 | 37 - 160 | EXTERNAL | | | | | | LAB | | + + + + + + | Iron | 13.4 (A) | 20 - 55 | EXTERNAL | | | Saturation | | | LAB | | + + + + + + | TIBC | 291 | 245 - 400 | EXTERNAL | [...] + +---------+ + + Protein/Creatinine Ratio, Urine (05/27/2017 1:31 PM PDT) + + + + + + | Component | Value | Ref Range | Performed | Pathologist | | | | | At | Signature | + + + + + + | Protein/Cre | 1358.5 (A) | 0 - 150 | EXTERNAL [...] + +---------+ + + External Lab: CBC (05/27/2017 1:31 PM PDT) + + + + + + | Component | Value | Ref Range | Performed | Pathologist | | | | | At | Signature | + + + + + + | WBC | 11.5 (A) | 4.5 - 11.0 10 | EXTERNAL | | | | | | LAB | | + + + + + + | Non- | 3.55 (A) | 4.3 - 5.7 10 | [...] + + + + | MCV | 89.2 | 81 - 99 fL | EXTERNAL [...] + + + + | Platelet | 272 | 140 - 440 K/ L | EXTERNAL | | | Count | | | LAB | | | Plasma | | | | | + + + + + + | RDW-CV | 15.0 | 10.5 - 15.0 % | EXTERNAL [...] | + +---------+ + + Uric Acid (05/27/2017 1:31 PM PDT) + +-------+ + + + [...] | | + +---------+ + + Transferrin (05/27/2017 1:31 PM PDT) + +--------+ + + + | Component | Value | Ref Range | Performed | Pathologist | | | | | At | Signature | + +--------+ + + + | TRANSFERRIN | 208.09 | 180 - 329 | EXTERNAL | [...] + +---------+ + + Parathyroid Hormone, Intact (05/27/2017 1:31 PM PDT) + + + + + + | Component | Value | Ref Range | Performed | Pathologist | | | | | At | Signature | + + + + + + | PTH INTACT | 166.8 (A) | 15 - 65 pg/mL | [...] | | + +---------+ + + Magnesium (05/27/2017 1:31 PM PDT) + +---------+ + + + | Component | Value | Ref Range | Performed | Pathologist | | | | | At | Signature | + +---------+ + + + | Magnesium | 1.4 (A) | 1.7 - 2.5 mg/dL | [...] | | + +---------+ + + Ferritin (05/27/2017 1:31 PM PDT) + +-------+ + + + | Component | Value | Ref Range | Performed | Pathologist | | | | | At | Signature | + +-------+ + + + | Ferritin, | 87.21 | 30 - 400 ng/mL | EXTERNAL [...] + +---------+ + + Renal Function Panel (05/27/2017 1:31 PM PDT) + + + + + + | Component | Value | Ref Range | Performed | Pathologist | | | | | At | Signature | + + + + + + | Glucose, | 165 (A) | 70 - 100 mg/dL | EXTERNAL | | | Fasting | | | LAB | | + + + + + + | BUN | 25 (A) | 6 - 23 mg/dL | EXTERNAL | | | | | | LAB | | + + + + + + | Creatinine | 1.82 (A) | 0.70 - 1.18 | EXTERNAL [...] + + + + | K | 3.8 | 3.6 - 5.1 | EXTERNAL | | | | | mmol/L | LAB | | + + + + + + | Cl | 104 | 95 - 112 mmol/L | EXTERNAL | | | | | | LAB | | + + + + + + | CO2 | 22 | 19 - 31 mmol/L | EXTERNAL | | | | | | LAB | | + + + + + + | Anion Gap | 17.8 | 7 - 21 mmol/L | EXTERNAL | | | | | | LAB | | + + + + + + | eGFR, | | | EXTERNAL | | | non- | | | LAB | | | [place] | | | | | + + + + + + | Phosphorus, | 4.0 | 2.5 - 5.0 | EXTERNAL | | | Inorganic | | | LAB | | + + + + + + | BUN/Creatin | 13.7 | 6.0 - 28.6 | EXTERNAL | | | ine Ratio | | | LAB | | + + + + + + | Calcium | 8.5 | 8.4 - 10.2 | EXTERNAL | | | | | mg/dL | LAB | | + + + + + + | Estimated | 36 | mg/dL | EXTERNAL | | | [...]
--- OUTSIDE RECORDS SUMMARY | ~2020-08-16 | XMS | Encounter Summary ---
Demographics + + + | Address | [address] | | | [place] [address] | + + + | Home Phone | | + + + | Preferred Language | Unknown | + + + | Marital Status | | + + + | Worship Affiliation | 1077 | + + + | Race | White | + + + | Ethnic Group | Not or | + + + Author + + + | Author | [facility] | | | and [place] | + + + | Organization | [facility] | | [...] Team Providers + +------+ + | Care Title Assistant Name | Role | Phone | + +------+ + | Mehrdad Bergman | PCP | | + +------+ + Encounter Details +--------+ + + + + | Date | Type | Department | Care Team | Description | +--------+ + + + + | 07/27/ | Orders Only | [facility] | Farrukh Acuna MD | Essential | | 2020 | | NEPHROLOGY [place] | [address] [place] | hypertension | | | | [address] [place] | [address] [place], [place] | (Primary Dx); Type 2 | | | | [address] [place], [place] | [address] | diabetes mellitus | | | | [address] | | with diabetic | | | | [phone] | | nephropathy, with | | | | | | long-term current | | | | | | use of insulin | | | | | | ([facility]); Anemia of | | | | | | chronic kidney | | | | | | failure, stage 5 | | | | | | ([facility]); Persistent | | | | | | proteinuria; CKD | | | | | | (chronic kidney | | | | | | disease) stage 5, | | | | | | GFR less than 15 | | | | | | ml/min ([facility]) | +--------+ + + + [...] 2019 | Office | | [address] [facility] | | | | Visit | | [address] [place] | | | | | | [address] | | | | | | | | +--------+ + + + + documented as of this encounter Visit Diagnoses + + | Diagnosis | + + | Essential hypertension - Primary Unspecified essential hypertension | + + | Type 2 diabetes mellitus with diabetic nephropathy, with long-term current use of | | insulin ([facility]) | + + | Anemia of chronic kidney failure, stage 5 ([facility]) | + + | Persistent proteinuria Proteinuria | + + | CKD (chronic kidney disease) stage 5, GFR less than 15 ml/min ([facility]) Chronic kidney | | disease, Stage V | + + documented in this encounter"
--- OUTSIDE RECORDS SUMMARY | ~2020-08-16 | XMS | Encounter Summary ---
Demographics + + + | Address | [address] | | | [place] [address] | + + + | Home Phone | | + + + | Preferred Language | Unknown | + + + | Marital Status | | + + + | Yazidism Affiliation | 1077 | + + + | Race | White | + + + | Ethnic Group | Not or | + + + Author + + + | Author | [facility] | | | and [place] | + + + | Organization | [facility] | | | and [...] Team Providers + +------+ + | Care Operating Room Scheduler Name | Role | Phone | + +------+ + | Rahul Silva MD | PCP | | + +------+ + Encounter Details +--------+ + + + + | Date | Type | Department | Care Team | Description | +--------+ + + + + | 07/30/ | Orders Only | [facility] | Conversion | | | 2016 | | [facility] | Transaction, | | | | | [address] | Provider Unknown | | | | | [address] [place], [place] | [phone] | | | | | [address] | (Fax) | | | | | [phone] | | | +--------+ + + + [...] 2019 | Office | | [address] [facility] | | | | Visit | | [address] [place] | | | | | | [address] | | | | | | | | +--------+ + + + + documented as of this encounter Procedures + +--------+ + + + | Procedure Name | Priori | Date/Time | Associated Diagnosis | Comments | | | ty | | | | + +--------+ + + + | EXTERNAL LAB: CBC | Routin | 07/30/2017 | | Results for this | | | e | 12:00 AM | | procedure are in the | | | | PDT | | results section. | + +--------+ + + + | D-DIMER | Routin | 07/30/2017 | | Results for this | | | e | 12:00 AM | | procedure are in the | | | | PDT | | results section. | + +--------+ + + + | COMPREHENSIVE | Routin | 07/30/2017 | | Results for this | | METABOLIC PANEL | e | 12:00 AM | | procedure are in the | | | | PDT | | results section. | + +--------+ + + + documented in this encounter Results D-Dimer (07/30/2017 12:00 AM PDT) + +-------+ + + + | Component | Value | Ref Range | Performed | Pathologist | | | | | At | Signature | + +-------+ + + + | D-DIMER, | 1180 | | EXTERNAL | | | MANUAL | | | LAB | | + [...] + +---------+ + + External Lab: CBC (07/30/2017 12:00 AM PDT) + + + + + + | Component | Value | Ref Range | Performed | Pathologist | | | | | At | Signature | + + + + + + | WBC | 11.0 | 4.5 - 11.0 10 | EXTERNAL | | | | | | LAB | | + + + + + + | Non- | 3.39 (A) | 4.3 - 5.7 10 | EXTERNAL | | | Red Blood | | | LAB | | | Cells | | | | | | Counted | | | | | + + + + + + | Hemoglobin | 9.7 (A) | 13.5 - 18.0 | EXTERNAL | | | | | g/dL | LAB | | + + + + + + | Hematocrit, | 29.1 (A) | 41 - 50 % | [...] + + + + | Platelet | 222 | 140 - 440 K/ L | EXTERNAL | | | Count | | | LAB | | | Plasma | | | | | + + + + + + | RDW-CV | 15.8 (A) | 10.5 - 15.0 % | [...] + + + | % Segmented | 72.8 | 39 - 80 % | EXTERNAL | | | | | | LAB | | | Neutrophils | | | | | + + + + + + | % | 10.9 (A) | 24 - 44 % | EXTERNAL | | | Lymphocytes | | | LAB | | + + + + + + | % Monocytes | 10.2 | 0 - 12 % | EXTERNAL | | | | | | LAB | | + + + + + + | % | 5.4 | 0 - 6 % | EXTERNAL | | | Eosinophils | | | LAB | | + + + + + + | % Basophils | 0.6 | 0 - 2 % | EXTERNAL [...] + +---------+ + + Comprehensive Metabolic Panel (07/30/2017 12:00 AM PDT) + + + + + + | Component | Value | Ref Range | Performed | Pathologist | | | | | At | Signature | + + + + + + | Glucose, | 124 (A) | 70 - 100 mg/dL | EXTERNAL | | | Fasting | | | LAB | | + + + + + + | BUN | 41 (A) | 6 - 23 mg/dL | EXTERNAL | | | | | | LAB | | + + + + + + | Creatinine | 2.48 (A) | 0.70 - 1.18 | EXTERNAL | | | | | mg/dL | LAB | | + + + + + + | BUN/Creatin | 16.5 | 6.0 - 28.6 | EXTERNAL | | | ine Ratio | | | LAB | | + + + + + + | Calcium | 7.4 (A) | 8.4 - 10.2 | EXTERNAL | | | | | mg/dL | LAB | | + + + + + + | Protein, | 5.2 (A) | 6.0 - 8.0 g/dL | EXTERNAL | | | Total | | | LAB | | + + + + + + | Albumin | 3.0 (A) | 3.5 - 5.0 | EXTERNAL | | | | | | LAB | | + + + + + + | Globulin | 2.2 | 1.8 - 3.5 | EXTERNAL | | | | | | LAB | | + + + + + + | A/G Ratio | 1.4 | 1.1 - 2.4 | EXTERNAL | | | | | | LAB | | + + + + + + | Bilirubin | 0.4 | 0.0 - 1.2 mg/dL | EXTERNAL | | | Total | | | LAB | | + + + + + + | ALP, | 135 (A) | 31 - 120 | EXTERNAL | | | External | | | LAB | | + + + + + + | ALT | 53 (A) | 7 - 52 U/L | EXTERNAL | | | | | | LAB | | + + + + + + | AST | 23 | 13 - 39 U/L | EXTERNAL [...] + + + | Anion Gap | 18.6 | 7 - 21 mmol/L | EXTERNAL | | | | | | LAB | | + + + + + + | Estimated | 25 | mg/dL | EXTERNAL | | | [...]
--- OUTSIDE RECORDS SUMMARY | ~2020-08-16 | XMS | Encounter Summary ---
Demographics + + + | Address | [address] | | | [place] [address] | + + + | Home Phone [...] + + + | Author | [facility] | | | and [place] | + + + | Organization | [facility] | | | [...] Team Providers + +------+ + | Care Smooth Stucco Resurfacer Name | Role | Phone | + +------+ + | Rahul Silva MD | PCP | | + +------+ + Reason for Visit +---------+ + | Reason | Comments | +---------+ + | Results | 10/10/19 | +---------+ + Encounter Details +--------+ + + + + | Date | Type | Department | Care Team | Description | +--------+ + + + + | 11/08/ | Documentati | [facility] | Alfrde, | Results (10/10/19) | | 2019 | on | NEPHROLOGY BASSEM | [place] [facility] | | | | | [address] | Shear Operator | | | | | [address] | | | | | | [place] | | | | | | [address] | | | | | | [phone] | | | +--------+ + + + [...] 2019 | Office | | [address] [facility] [address] | | | | Visit | | [address] [place], [place] | | | | | | [address] | | | | | | | | +--------+ + + + + documented as of this encounter Procedures + +--------+ + + + | Procedure Name | Priori | Date/Time | Associated Diagnosis | Comments | | | ty | | | | + +--------+ + + + | CBC NO DIFFERENTIAL | Routin | 10/10/2019 | | Results for this | | | e | | | procedure are in the | | | | | | results section. | + +--------+ + + + | TROPONIN T | Routin | 10/10/2019 | | Results for this | | | e | | | procedure are in the | | | | | | results section. | + +--------+ + + + | MAGNESIUM | Routin | 10/10/2019 | | Results for this | | | e | | | procedure are in the | | | | | | results section. | + +--------+ + + + | COMPREHENSIVE | Routin | 10/10/2019 | | Results for this | | METABOLIC PANEL | e | | | procedure are in the | | | | | | results section. | + +--------+ + + + documented in this encounter Results CBC with Manual Differential (10/10/2019) + + + + + + | Component | Value | Ref Range | Performed | Pathologist | | | | | At | Signature | + + + + + + | WBC | 7.9 | 4.5 - 11.0 | | | + + + + + + | Red Blood | 2.85 (A) | 4.30 - 5.70 | | | | Cells | | M/uL | | | + + + + + + | Hemoglobin | 8.4 (A) | 13.5 - 18.0 | | | + + + + + + | Hematocrit, | 24.4 (A) | 41.0 - 50.0 % | | | | POC | | | | | + + + + + + | MCV | 85.6 | 81.0 - 99.0 fL | | | + + + + + + | MCH | 29.0 | 27.0 - 33.0 pg | | | + + + + + + | MCHC | 34.0 | 30.0 - 36.0 | | | | | | g/dL | | | + + + + + + | Platelet | 262 | 140 - 440 | | | | Count | | | | | | Plasma | | | | | + + + + + + | RDW | 15.6 (A) | 10.5 - 15.0 | | | + + + + + + | Neutrophils | 70.6 | 39 - 80 | | | | , Absolute | | | | | + + + + + + | Absolute | 12.5 (A) | 24 - 44 | | | | Lymphocytes | | | | | + + + + + + | Absolute | 9.2 | 0 - 12 | | | | Monocytes | | | | | + + + + + + | Eosinophils | 7.6 (A) | 0 - 6 | | | | , Absolute | | | | | + + + + + + | Basophils, | 1.5 | 0 - 2 | | | | Absolute | | | | | + + + + + + + + | Specimen | + + | Blood | + + Troponin T (10/10/2019) + + + + + + | Component | Value | Ref Range | Performed | Pathologist | | | | | At | Signature | + + + + + + | Troponin T | 0.052 (A) | 0.010 ng/mL | | | + + + + + + + + | Specimen | + + | Blood | + + Magnesium (10/10/2019) + +---------+ + + + | Component | Value | Ref Range | Performed | Pathologist | | | | | At | Signature | + +---------+ + + + | Magnesium | 1.6 (A) | 1.7 - 2.5 mg/dL | | | + +---------+ + + + + + | Specimen | + + | Blood | + + Comprehensive Metabolic Panel (10/10/2019) + + + + + + | Component | Value | Ref Range | Performed | Pathologist | | | | | At | Signature | + + + + + + | Na | 137 | 132 - 143 | | | | | | mmol/L | | | + + + + + + | K | 4.3 | 3.6 - 5.1 | | | | | | mmol/L | | | + + + + + + | Cl | 101 | 95 - 112 mmol/L | | | + + + + + + | CO2 | 26 | 19 - 31 mmol/L | | | + + + + + + | Anion Gap | 14 | 7 - 21 mmol/L | | | + + + + + + | Glucose | 213 (A) | 70 - 100 mg/dL | | | + + + + + + | BUN | 40 (A) | 6 - 23 mg/dL | | | + + + + + + | Creatinine | 3.82 (A) | 0.70 - 1.18 | | | | | | mg/dL | | | + + + + + + | Estimated | 15.0 (A) | 60.0 - 140.0 | | | | GFR | | mL/min/1.73m2 | | | + + + + + + | BUN/Creatin | 10.8 | 6.0 - 28.6 | | | | ine Ratio | | | | | + + + + + + | Calcium | 8.3 (A) | 8.5 - 10.3 | | | + + + + + + | AST | 6 (A) | 13 - 39 U/L | | | + + + + + + | ALT | 4 (A) | 7 - 52 U/L | | | + + + + + + | ALP, | 69 | 31 - 120 | | | | External | | | | | + + + + + + | BILIRUBIN, | 0.3 | 0.0 - 1.2 | | | | TOTAL | | | | | + + + + + + | Protein, | 6.2 | 6.0 - 8.3 | | | | Total | | | | | + + + + + + | Albumin | 3.4 (A) | 3.5 - 5.0 g/dL | | | + + + + + + | Globulin | 2.8 | 1.8 - 3.5 | | | + + + + + + | Albumin/Becca | 1.2 | 1.1 - 2.4 | | | | bulin Ratio | | | | | + + + + + + + + | Specimen | + + | Blood | + + documented in this encounter Visit Diagnoses Not on filedocumented in this encounter"
--- OUTSIDE RECORDS SUMMARY | ~2020-08-16 | XMS | Encounter Summary ---
Demographics + + + | Address | [address] | | | [place] [address] | + + + | Home Phone [...] | Author | [facility] | | | and [place] | + + + | Organization | [facility] | | | and [...] Team Providers + +------+ + | Care Cloth Hand Name | Role | Phone | + +------+ + | Rahul Silva MD | PCP | | + +------+ + Encounter Details +--------+ + + + + | Date | Type | Department | Care Team | Description | +--------+ + + + + | 11/10/ | Orders Only | [facility] | Olman Toussaint MD | | | 2015 | | [address] | [address] | | | | | [place], [place] | [place], [place] | | | | | [address] | [address] | | | | | [phone] | [phone] | | | | | | | [...] 2020 | Office | | [address] [facility] | | | | Visit | | [address] [place] | | | | | | [address] | | | | | | | | +--------+ + + + + documented as of this encounter Procedures + +--------+ + + + | Procedure Name | Priori | Date/Time | Associated Diagnosis | Comments | | | ty | | | | + +--------+ + + + | LIPASE | Routin | 11/10/2016 | | Results for this | | | e | 4:27 AM | | procedure are in the | | | | PST | | results section. | + +--------+ + + + documented in this encounter Results Lipase (11/10/2016 4:27 AM PST) + +---------+ + + + | Component | Value | Ref Range | Performed | Pathologist | | | | | At | Signature | + +---------+ + + + | Lipase | 961 (H) | 73 - 393 U/L | EXTERNAL | | | | [...]
--- OUTSIDE RECORDS SUMMARY | ~2020-08-16 | XMS | Encounter Summary ---
Demographics + + + | Address | [address] | | | [place] [address] | + + + | Home Phone | | + + + | Preferred Language | Unknown | + + + | Marital Status | | + + + | Taoism Affiliation | 1077 | + + + | Race | White | + + + | Ethnic Group | Not or | + + + Author + + + | Author | [facility] | | | and [place] | + + + | Organization | [facility] | | | [...] Team Providers + +------+ + | Care Transition Of Care Specialist Name | Role | Phone | + +------+ + | Rahul Silva MD | PCP | | + +------+ + Encounter Details +--------+ + + + + | Date | Type | Department | Care Team | Description | +--------+ + + + + | 06/15/ | Orders Only | [facility] | Conversion | | | 2019 | | NEPHROLOGY [place] | Transaction, | | | | | [address] | Provider Unknown | | | | | [address] [place] | | | | | | [address] | (Fax) | | | | | [phone] | | | +--------+ + + + [...] 2020 | Office | | [address] [facility] | | | | Visit | | [address] [place], [place] | | | | | | [address] | | | | | | | [...]
--- OUTSIDE RECORDS SUMMARY | ~2020-08-16 | XMS | Encounter Summary ---
Demographics + + + | Address | [address] | | | [place] [address] | + + + | Home Phone | | + + + | Preferred Language | Unknown | + + + | Marital Status | | + + + | Temple Affiliation | 1077 | + + + | Race | White | + + + | Ethnic Group | Not or | + + + Author + + + | Author | [facility] | | | and [place] | + + + | Organization | [facility] | | | [...] Team Providers + +------+ + | Care Sewing Machine Mechanic Name | Role | Phone | + +------+ + | Rahul Silva MD | PCP | | + +------+ + Reason for Visit + +--------+ + | Reason | Onset | Comments | | | Date | | + +--------+ + | Appointment | 02/23/ | cancellation | | | 2013 | | + +--------+ + Encounter Details +--------+ + + + + | Date | Type | Department | Care Team | Description | +--------+ + + + + | 02/23/ | Telephone | [facility] | Jose L Magana, | Appointment | | 2013 | | PULMONARY [address] | MD [address] | (cancellation) | | | | [facility], | [place], [place] | | | | | [place] [address] | [address] | | | | | [phone] | | | +--------+ + + + [...] encounter Miscellaneous Notes Telephone Encounter - [place] - 02/23/2014 9:32 AM Terri called to late this morning to cancel this appointment with Dr. Magana at 1pm for a BUSINESS SERVICES REPRESENTATIVE consult due to not feeling well. Appointment has not been rescheduled. Patient states they will call back to kee dobbs. documented in this encounter Plan of Treatment +--------+ + + + + | Date | Type | Specialty | Care Team | Description | +--------+ + + + + | 10/30/ | Virtual | Nephrology | Farrukh Acuna MD | | | 2019 | Office | | [address] [facility] | | | | Visit | | [address] [place], [place] | | | | | | [address] | | | | | | | | +--------+ + + + + documented as of this encounter Visit Diagnoses Not on filedocumented in this encounter"
--- OUTSIDE RECORDS SUMMARY | ~2020-08-16 | XMS | Encounter Summary ---
Demographics + + + | Address | [address] | | | [place] [address] | + + + | Home Phone | | + + + | Preferred Language | Unknown | + + + | Marital Status | | + + + | Christianity Affiliation | 1077 | + + + | Race | White | + + + | Ethnic Group | Not or | + + + Author + + + | Author | [facility] | | | and [place] | + + + | Organization | [facility] | | | [...] Team Providers + +------+ + | Care English Language Learner Teacher Name | Role | Phone | + +------+ + PCP | Unavailable | + +------+ + Encounter Details +--------+ + + + + | Date | Type | Department | Care Team | Description | +--------+ + + + + | 12/31/ | Hospital | [facility] | | | | 2000 | Encounter | MED CTR XRAY [address] | | | | | | [place] | | | | | | [place] [address] | | | | | | [phone] | | | +--------+ + + + [...] 2019 | Office | | [address] [facility] | | | | Visit | | [address] [place], [place] | | | | | | [address] | | | | | | | | +--------+ + + + + documented as of this encounter Visit Diagnoses Not on filedocumented in this encounter"
--- OUTSIDE RECORDS SUMMARY | ~2020-08-16 | XMS | Encounter Summary ---
Demographics + + + | Address | [address] | | | [place] [address] | + + + | Home Phone | | + + + | Preferred Language | Unknown | + + + | Marital Status | Single | + + + | Adventism Affiliation | PRO | + + + | Race | White | + + + | Ethnic Group | Not or | + + + Author + + + | Author | [facility] | + + + | Organization | [facility] | + + + | Address | Unknown | + + + | Phone | Unavailable | + + + Support + + + + + | Name | Relationship | Address | Phone | + + + + + | Darci Andujar | VALERIE | [place] | | | | | [address] | | + + + + + Care Team Providers + +------+ + | Care Athletic Events Scorer Name | Role | Phone | + +------+ + PCP | Unavailable | + +------+ + Encounter Details +--------+ + + + + | Date | Type | Department | Care Team | Description | +--------+ + + + + | 10/31/ | Office | General Internal | Note, Outpatient | Progress Note | | 1996 | Visit-Trans | Medicine [address] | Clinic | | | | cribed | [address] | | | | | | Mailcode: L475 | | | | | | Outpatient Clinic | | | | | | [facility], [address] | | | | | | [place], [place] | | | | | | [address] | | | | | | [phone] | | | +--------+ + + + [...] as of this encounter Progress Notes Interface, Service Porter In - 01/06/2007 5:03 AM PST CLINIC DATE: 10/31/97 [facility] - PROCEDURE NOTE PROCEDURE: After obtaining informed written consent the patient was positioned sitting, and an IV was started in his right antecubital fossa. His lower back was prepped and draped in a sterile fashion, and the following procedure was performed using a sterile technique, including sterile gloves, hat and mask. The patient's back was palpated and the L-2/3 interspace was located, and the skin and subcutaneous tissue overlying was anesthetized with 3 cc of 1% Lidocaine without Epinephrine. After obtaining skin and subcutaneous tissue anesthesia, a 25 gauge Barber needle was inserted using an introducer. This needle however proved to be too short to reach the subarachnoid space because of the introducer, so a 22-gauge Quickie needle was then used through the same hole and advanced to puncture the dura. Clear cerebrospinal fluid was obtained, and there was no blood or paresthesias, and 40 mg of isobaric Lidocaine (1% solution) was injected before and after injection. A T-10 level was obtained. The patient obtained complete and total relief of his left stump pain during the time of his anesthetic. His pain gradually began to reappear as the anesthetic wore off. The patient was observed in the [facility] recovery area until he was able to move his legs. He was then transferred to his wheelchair and discharged home in the company of his son in law with instructions to return to clinic in one to two weeks for neuroma localization and injection in his left thigh stump. Nelson Melara M.D. Legal Administrative Assistant, [facility] MANDY/maryjo documented in this encounter Plan of Treatment Not on filedocumented as of this encounter Visit Diagnoses Not on filedocumented in this encounter"
--- OUTSIDE RECORDS SUMMARY | ~2020-08-16 | XMS | Encounter Summary ---
Demographics + + + | Address | [address] | | | [place] [address] | + + + | Home Phone [...] Team Providers + +------+ + | Care Resist Coater Developer Name | Role | Phone | + +------+ + | Mehrdad Bergman | PCP | | + +------+ + Encounter Details +--------+ + + + + | Date | Type | Department | Care Team | Description | +--------+ + + + + | 08/09/ | Orders Only | [facility] | Farrukh Acuna MD | Essential | | 2020 | | NEPHROLOGY [place] | [address] [place] | hypertension | | | | [address] [place] | [address] [place], [place] | (Primary Dx); Type 2 | | | | [address] [place], [place] | [address] | diabetes mellitus | | | | [address] | | with diabetic | | | | [phone] | | nephropathy, with | | | | | | long-term current | | | | | | use of insulin | | | | | | ([facility]); Anemia of | | | | | | chronic kidney | | | | | | failure, stage 5 | | | | | | ([facility]); CKD (chronic | | | | | | kidney disease) | | | | | | stage 5, GFR less | | | | | | than 15 ml/min | | | | | | ([facility]); Persistent | | | | [...] 2020 | Office | | [address] [facility] | | | | Visit | | [address] [place] | | | | | | [address] | | | | | | | | +--------+ + + + + + +------+--------+ + + | Name | Type | Priori | Associated Diagnoses | Order Schedule | | | | ty | | | + +------+--------+ + + | Basic Metabolic | Lab | Routin | Essential | every 28 days for 2 | | Panel | | e | hypertension Type 2 | Occurrences starting | | | | | diabetes mellitus | 08/09/2020 until | | | | | with diabetic | 08/09/2021 | | | | | nephropathy, with | | | | | | long-term current | | | | | | use of insulin ([facility]) | | | | | | Anemia of chronic | | | | | | kidney failure, | | | | | | stage 5 ([facility]) CKD | | | | | | (chronic kidney | | | | | | disease) stage 5, | | | | | | GFR less than 15 | | | | | | ml/min ([facility]) | | | | | | Persistent | | | | | | proteinuria | | + +------+--------+ + + | CBC with | Lab | Routin | Essential | every 28 days for 2 | | Differential | | e | hypertension Type 2 | Occurrences starting | | | | | diabetes mellitus | 08/09/2020 until | | | | | with diabetic | 08/09/2021 | | | | | nephropathy, with | | | | | | long-term current | | | | | | use of insulin ([facility]) | | | | | | Anemia of chronic | | | | | | kidney failure, | | | | | | stage 5 ([facility]) CKD | | | | | | (chronic kidney | | | | | | disease) stage 5, | | | | | | GFR less than 15 | | | | | | ml/min ([facility]) | | | | | | Persistent | | | | | | proteinuria | | + +------+--------+ + + | Renal Function Panel | Lab | Routin | Essential | Expected: | | | | e | hypertension Type 2 | 10/09/2020, Expires: | | | | | diabetes mellitus | 08/09/2021 | | | | | with diabetic | | | | | | nephropathy, with | | | | | | long-term current | | | | | | use of insulin ([facility]) | | | | | | Anemia of chronic | | | | | | kidney failure, | | | | | | stage 5 ([facility]) CKD | | | | | | (chronic kidney | | | | | | disease) stage 5, | | | | | | GFR less than 15 | | | | | | ml/min ([facility]) | | | | | | Persistent | | | | | | proteinuria | | + +------+--------+ + + | CBC with | Lab | Routin | Essential | Expected: | | Differential | | e | hypertension Type 2 | 10/09/2020, Expires: | | | | | diabetes mellitus | 08/09/2021 | | | | | with diabetic | | | | | | nephropathy, with | | | | | | long-term current | | | | | | use of insulin ([facility]) | | | | | | Anemia of chronic | | | | | | kidney failure, | | | | | | stage 5 ([facility]) CKD | | | | | | (chronic kidney | | | | | | disease) stage 5, | | | | | | GFR less than 15 | | | | | | ml/min ([facility]) | | | | | | Persistent | | | | | | proteinuria | | + +------+--------+ + + | Iron and Iron | Lab | Routin | Essential | Expected: | | Binding Capacity | | e | hypertension Type 2 | 10/09/2020, Expires: | | | | | diabetes mellitus | 08/09/2021 | | | | | with diabetic | | | | | | nephropathy, with | | | | | | long-term current | | | | | | use of insulin ([facility]) | | | | | | Anemia of chronic | | | | | | kidney failure, | | | | | | stage 5 ([facility]) CKD | | | | | | (chronic kidney | | | | | | disease) stage 5, | | | | | | GFR less than 15 | | | | | | ml/min ([facility]) | | | | | | Persistent | | | | | | proteinuria | | + +------+--------+ + + | Ferritin | Lab | Routin | Essential | Expected: | | | | e | hypertension Type 2 | 10/09/2020, Expires: | | | | | diabetes mellitus | 08/09/2021 | | | | | with diabetic | | | | | | nephropathy, with | | | | | | long-term current | | | | | | use of insulin ([facility]) | | | | | | Anemia of chronic | | | | | | kidney failure, | | | | | | stage 5 ([facility]) CKD | | | | | | (chronic kidney | | | | | | disease) stage 5, | | | | | | GFR less than 15 | | | | | | ml/min ([facility]) | | | | | | Persistent | | | | | | proteinuria | | + +------+--------+ + + | Parathyroid Hormone, | Lab | Routin | Essential | Expected: | | Intact | | e | hypertension Type 2 | 10/09/2020, Expires: | | | | | diabetes mellitus | 08/09/2021 | | | | | with diabetic | | | | | | nephropathy, with | | | | | | long-term current | | | | | | use of insulin ([facility]) | | | | | | Anemia of chronic | | | | | | kidney failure, | | | | | | stage 5 ([facility]) CKD | | | | | | (chronic kidney | | | | | | disease) stage 5, | | | | | | GFR less than 15 | | | | | | ml/min ([facility]) | | | | | | Persistent | | | | | | proteinuria | | + +------+--------+ + + | Vitamin D, | Lab | Routin | Essential | Expected: | | Deficiency Screen | | e | hypertension Type 2 | 10/09/2020, Expires: | | (25-Hydroxy) | | | diabetes mellitus | 08/09/2021 | | | | | with diabetic | | | | | | nephropathy, with | | | | | | long-term current | | | | | | use of insulin ([facility]) | | | | | | Anemia of chronic | | | | | | kidney failure, | | | | | | stage 5 ([facility]) CKD | | | | | | (chronic kidney | | | | | | disease) stage 5, | | | | | | GFR less than 15 | | | | | | ml/min ([facility]) | | | | | | Persistent | | | | | | proteinuria | | + +------+--------+ + + | Protein/Creatinine | Lab | Routin | Essential | Expected: | | Ratio, Urine | | e | hypertension Type 2 | 10/09/2020, Expires: | | | | | diabetes mellitus | 08/09/2021 | | | | | with diabetic | | | | | | nephropathy, with | | | | | | long-term current | | | | | | use of insulin ([facility]) | | | | | | Anemia of chronic | | | | | | kidney failure, | | | | | | stage 5 ([facility]) CKD | | | | | | (chronic kidney | | | | | | disease) stage 5, | | | | | | GFR less than 15 | | | | | | ml/min ([facility]) | | | | | | Persistent | | | | | | proteinuria | | + +------+--------+ + + documented as of this encounter Visit Diagnoses + + | Diagnosis | + + | Essential hypertension - Primary Unspecified essential hypertension | + + | Type 2 diabetes mellitus with diabetic nephropathy, with long-term current use of | | insulin ([facility]) | + + | Anemia of chronic kidney failure, stage 5 ([facility]) | + + | CKD (chronic kidney disease) stage 5, GFR less than 15 ml/min ([facility]) Chronic kidney | | disease, Stage V | + + | Persistent proteinuria Proteinuria | + + documented in this encounter"
--- OUTSIDE RECORDS SUMMARY | ~2020-08-16 | XMS | Encounter Summary ---
Demographics + + + | Address | [address] | | | [place] [address] | + + + | Home Phone [...] + + + | Author | [facility] | | | and [place] | + + + | Organization | [facility] | | [...] Team Providers + +------+ + | Care Executive Steward Name | Role | Phone | + [...] | | [address] [place] | [place] [address] | | | | | [place] [address] | | | | | | [phone] | | | +--------+ + + + [...] 2019 | Office | | [address] [facility] | | | | Visit | | [address] [place] | | | | | | [address] | | | | | | | | +--------+ + + + + documented as of this encounter Procedures + +--------+ + + + | Procedure Name | Priori | Date/Time | Associated Diagnosis | Comments | | | ty | | | | + +--------+ + + + | XR CHEST 2 VIEWS | Routin | 08/01/2017 | | Results for this | | | e | 12:00 AM | | procedure are in the | | | | PDT | | results section. | + +--------+ + + + documented in this encounter Results XR Chest 2 Vws (08/01/2017 12:00 AM PDT) + + | Specimen [...]
--- OUTSIDE RECORDS SUMMARY | ~2020-08-16 | XMS | Encounter Summary ---
Demographics + + + | Address | [address] | | | [place] [address] | + + + | Home Phone | | + + + | Preferred Language | Unknown | + + + | Marital Status | | + + + | Alevism Affiliation | 1077 | + + + | Race | White | + + + | Ethnic Group | Not or | + + + Author + + + | Author | [facility] | | | and [place] | + + + | Organization | [facility] | | [...] Team Providers + +------+ + | Care Laminate Floor Installer Name | Role | Phone | + +------+ + | Rahul Silva MD | PCP | | + +------+ + Reason for Visit +--------+--------+ + | Reason | Onset | Comments | | | Date | | +--------+--------+ + | Other | 10/20/ | Tera F/U | | | 2019 | | +--------+--------+ + Encounter Details +--------+ + + + + | Date | Type | Department | Care Team | Description | +--------+ + + + + | 10/20/ | Telephone | [facility] | Simon, | Other (Tera F/U) | | 2018 | | NEPHROLOGY [place] | [facility] | | | | | [address] | System Configuration Specialist | | | | | [place] [facility] | | | | | | [place] | | | | | | [address] | | | | | | [phone] | | | +--------+ + + + [...] Miscellaneous Notes Telephone Encounter - Trinidad Simon Urinalysis Technician - 10/20/2019 10:47 AM PSTCalle d to see if patient was scheduled for [place]. Per [place] patient received injection "a coup le" days after his visit with Dr. Acuna this month. Patient is scheduled for the beginning o october for his next injection. documented in this encounter Plan of Treatment +--------+ + + + + | Date | Type | Specialty | Care Team | Description | +--------+ + + + + | 10/30/ | Virtual | Nephrology | Farrukh Acuna MD | | | 2019 | Office | | [address] [facility] | | | | Visit | | [address] [place], [place] | | | | | | [address] | | | | | | | | +--------+ + + + + documented as of this encounter Visit Diagnoses Not on filedocumented in this encounter
--- OUTSIDE RECORDS SUMMARY | ~2020-08-16 | XMS | Encounter Summary ---
Demographics + + + | Address | [address] | | | [place] [address] | + + + | Home Phone [...] Team Providers + +------+ + | Care Stranner Name | Role | Phone | + [...] | | [address] | [place] [address] | | | | | [place] [address] | | | | | | [phone] | | | +--------+ + + + [...] | Visit | | [address] [facility] [place] | | | | | | [address] | | | | | | | [...]
--- OUTSIDE RECORDS SUMMARY | ~2020-08-16 | XMS | Encounter Summary ---
Demographics + + + | Address | [address] | | | [place] [address] | + + + | Home Phone [...] Team Providers + +------+ + | Care It Service Continuity Supervisor Name | Role | Phone | [...] | | | [address] | [place] [address] | | | | | [place] [address] | | | | | | [phone] | | | +--------+ + + + [...] 2019 | Office | | [address] [facility] | | | | Visit | | [facility] | | | | | | [address] | | | | | | | | +--------+ + + + + documented as of this encounter Procedures + +--------+ + + + | Procedure Name | Priori | Date/Time | Associated Diagnosis | Comments | | | ty | | | | + +--------+ + + + | XR CHEST 1 VIEW | Routin | 06/14/2016 | | Results for this | | | e | 12:00 AM | | procedure are in the | | | | PDT | | results section. | + +--------+ + + + documented in this encounter Results XR Chest 1 Vw (06/14/2016 12:00 AM PDT) + + | Specimen [...]
--- OUTSIDE RECORDS SUMMARY | ~2020-08-16 | XMS | Encounter Summary ---
Demographics + + + | Address | [address] | | | [place] [address] | + + + | Home Phone | | + + + | Preferred Language | Unknown | + + + | Marital Status | Single | + + + | Spiritism Affiliation | PRO | + + + | Race | White | + + + | Ethnic Group | Not or | + + + Author + + + | Author | [facility] | + + + | Organization | [facility] | + + + | Address | Unknown | + + + | Phone | Unavailable | + + + Support + + + + + | Name | Relationship | Address | Phone | + + + + + | Darci Andujar | [address] | [place] | | | | | [address] | | + + + + + Care Team Providers + +------+ + | Care Flight Simulator Teacher Name | Role | Phone | + +------+ + PCP | Unavailable | + +------+ + Encounter Details +--------+ + + + + | Date | Type | Department | Care Team | Description | +--------+ + + + + | 01/03/ | Discharge | All[facility] Clinic at | Summary, Discharge | D/C Summary ODDS | | 1996 | Summary-Tra | [address] | | | | | nscribed | [address] | | | | | | Ronaldo [place]yas | | | | | | [facility], [address] [place] [address] | | | | | | [place], [place] | | | | | | [address] | | | | | | [phone] | | | +--------+ + + + [...] as of this encounter Discharge Summaries Interface, Tile Grader In - 02/05/2007 1:03 AM PST [address] [address] [facility] MEDICAL SUMMARY OF HOSPITALIZATION Med Rec No.: [id number] Admission Date: 12/28/96 Name: Kavon Andujar Discharge Date: 01/03/97 STAFF PHYSICIAN: Robert Carlson M.D. Professor, Vascular Surgery PRINCIPAL FINAL DIAGNOSIS: Osteophyte of left jtfdd-qiq-bomt amputation stump. ADDITIONAL DIAGNOSES: Phantom pain. PRINCIPAL PROCEDURE: Revision of left pbpxf-bsl-xazs amputation stump and excision of left stump osteophyte. 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 Since then he has had pain in the stump. On a computed tomography (CT) scan, it was noted that he had a large bone spur and a cyst in his stump site. HOSPITAL COURSE: The patient was admitted on December 28 and underwent revision of his left ycmbk-ibn-tvqx amputation stump with excision of his left stump osteophyte. He tolerated the procedure well and was transferred to the lance postoperatively. The patient had a significant amount of incisional pain as well as phantom pain for the first several postoperative days. He was maintained on a patient-controlled analgesia pump so that his pain could be maintained under control. He was started on Lovenox 30 mg SQ b.i.d. so that he would not develop deep venous thrombosis. Physical Therapy was consulted to have the patient ambulate with his stump and monitor his crutch usage. On postoperative day five, the patient was ready for discharged home. He was tolerating his pain well on oral pain medications. He was discharged without any complications. CONDITION ON DISCHARGE: Stable. DISCHARGE MEDICATIONS: Amitriptyline: 100 mg p.o. q.h.s. Procardia XL: 30 mg p.o. q.d. Darvon: 65 mg tabs, 1-2 tabs p.o. q.4-6h. p.r.n. Oxycodone: 5-10 mg p.o. q.4-6h. p.r.n. FOLLOW-UP RECOMMENDATIONS: The patient will return to the Vascular Clinic in 3-4 weeks. DISCHARGE INSTRUCTION(S): 1. WOUND CARE: The patient can apply a dry dressing to his stump p.r.n. 2. ACTIVITY: Normal. 3. DIET: Normal. Nick Noriega M.D. Teaching Fellow, General Surgery Robert Carlson M.D. Professor, Vascular Surgery DOMINIC/jc A cc: RUBIA KNAPP MD [address] [facility] [id number] documented in this encounter Plan of Treatment Not on filedocumented as of this encounter Visit Diagnoses Not on filedocumented in this encounter"
--- OUTSIDE RECORDS SUMMARY | ~2020-08-16 | XMS | Encounter Summary ---
Demographics + + + | Address | [address] | | | [place] [address] | + + + | Home Phone [...] Team Providers + +------+ + | Care Ammonia Distiller Name | Role | Phone | + +------+ + | Rahul Silva MD | PCP | | + +------+ + Encounter Details +--------+---------+ + + + | Date | Type | Department | Care Team | Description | +--------+---------+ + + + | 01/10/ | Office | [facility] | Farrukh Acuna MD | CKD (chronic kidney | | 2020 | Visit | NEPHROLOGY [place] | [address] [place] | disease) stage 5, | | | | [address] | [address] [place], [place] | GFR less than 15 | | | | [address] | [address] | ml/min (HCC) | | | | [place], [place] | | (Primary Dx); Anemia | | | | [phone] | | of chronic kidney | | | | [phone] | | failure, stage 5 | | | | | | (HCC); Edema of | | | | | | lower extremity; | | | | | | Hypomagnesemia; | | | | | | Status post fall; | | | | | | Vitamin D | | | | | | deficiency; Tobacco | | | | | | dependence syndrome; | | | | | | Persistent | | | | | | proteinuria; 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, with | | | | | | long-term current | | | | | | use of insulin | | | | | | (HCC); Essential | | | | | | hypertension; Iron | | | | | | deficiency | +--------+---------+ + + + Social History [...] + + + | Blood Pressure | 100/30 | 01/10/2020 2:18 PM | | | | | PST | | + + + + + | Pulse | 70 | 01/10/2020 2:18 PM | | | | | PST | | + + + + + | Temperature | - | - | | + + + + + | Respiratory Rate | - | - | | + + + + + | Oxygen Saturation | - | - | | + + + + + | Inhaled Oxygen | - | - | | | Concentration | | | | + + + + + | Weight | 81.1 kg (178 lb 12.8 | 01/10/2020 2:18 PM | | | | oz) | PST | | + + + + + | Height | 172.7 cm (5' 8") | 01/10/2020 2:18 PM | | | | | PST | | + + + + + | Body Mass Index | 27.19 | 01/10/2020 2:18 PM | | | | | PST | | + + + + + documented in this encounter Patient Instructions Patient Instructions Farrukh Acuna MD - 01/10/2020 2:00 PM PSTDiscussions/Recommendations : I discussed today with Mr. Adnujar the meaning of his significant CKD and the interaction of that with his diabetes & HTN. I stressed the importance of keeping his BG & BP controlled and avoiding getting dehydra cassi if we are to have a chance at helping preserve his renal function. He showed good under standing. I gave him instructions on how to chart his blood pressure in the appropriate manner at home. He is to call us if they fall outside of the optimal provided range. He will bring his sphygmomanometer for validation once a year. He will strictly abide by a low salt, low phosphorus & low purine diet. He will avoid all kinds of NSAIDs for analgesia. Given his severely depressed & worsening GFR, he may need to start HD/UF soon. The patie nt understands fully the meaning of dialysis, its prognosis & complications, including but n ot limited to blood loss, clotting, infection, hypotension & ; he understands the pros & cons, and all the options available, including no dialysis at all. The patient does want t o proceed with dialysis when it is needed. Also: I will not change any of his vasoactive meds today. He will bring me back his home weights & BP charts if they fall outside of the optimal p rovided range. At that time, I will decide whether any changes to his vasoactive regimen are warranted. I asked him to elevate his leg for 1 and 1/2 hours once a day. He knows that he still ne eds to be active and ambulatory carefully as possible. I decreased his Calcitriol to 0.25 mcg 4 times a week. I kept his Cholecalciferol (Vitam in D3) to 2,000 units daily. I kept him on Ferrous Sulfate 325 mg daily. I warned him about its possible side effects including constipation. he voiced good understanding. I kept his Aranesp to 100 mcg monthly. I strongly advised him to keep off smoking; I explained the benefits of doing that. He voic ed good understanding. I asked him to F/U with the Sleep Medicine team. He will F/U with your office regularly. I sent him for a repeat BMP, CBC every 2 weeks. He will have RFP, CBC, Mag, Fe studies, Ferritin, intact PTH done before he comes back i n 1 month. documented in this encounter Progress Notes Farrukh Acuna MD - 01/10/2020 2:00 PM PST Patient Active Problem List Diagnosis Date Noted POA Intertrochanteric fracture of left hip, closed, initial encounter 08/03/2016 Unknown Priority: High Laceration of left ear, initial encounter 08/03/2016 Unknown Priority: High Acute hyperkalemia 08/03/2016 Unknown Priority: Medium Intractable pain 08/04/2016 Unknown Priority: Low Type 2 diabetes mellitus with diabetic nephropathy, with long-term current use of insul in 08/04/2016 Unknown Priority: Low Status post fall 08/03/2016 Unknown Priority: Low CKD (chronic kidney disease) stage 5, GFR less than 15 ml/min 08/26/2019 Unknown Iron deficiency 07/26/2019 Unknown Secondary hyperparathyroidism 01/17/2017 Unknown Phantom limb pain 08/04/2016 Unknown Hypomagnesemia 02/03/2015 Unknown Adiposity 06/06/2014 Unknown Anemia of chronic kidney failure, stage 5 06/06/2014 Unknown Cataract of both eyes 06/06/2014 Unknown Diabetes mellitus 06/06/2014 Unknown Edema of lower extremity 06/06/2014 Unknown History of stroke 06/06/2014 Unknown Essential hypertension 06/06/2014 Unknown Hyperuricemia 06/06/2014 Unknown Persistent proteinuria 06/06/2014 Unknown Status post amputation of lower extremity 06/06/2014 Unknown Tobacco dependence syndrome 06/06/2014 Unknown Vitamin D deficiency 06/06/2014 Unknown PAOLO (obstructive sleep apnea) 02/16/2014 Unknown COPD (chronic obstructive pulmonary disease) 02/16/[address] Silva: I saw your patient Mr. Andujar in the office on an urgent basis in F/U today with his daught er + he is here to F/U on his severe CKD & its associated complications. On 05/27/19, his sC r & eGFR were 4.44 & 13 vs 3.03 & 20 on 03/01/19. He was in the ED in 10/2019 with confusion. No specific etiology found. He got better quick ly. He was hospitalized in late 08/2019 with Strep pneumoniae LLL pneumonia. He was in the ED in early 03/2019 with dyspnea; given bronchodilators, diuresed & felt bett er. He was hospitalized in late 01/2019 with "perforated bowel". He was hospitalized in 10/2016 with severe pneumonia, severe ZEKE; needed BINDERY MANAGER for ~5 weeks b efore renal function recovery mid 12/2016. He was admitted to [facility] for 3 nights in July 2016 for C-Diff and subsequent dehydration, p ossible ischemic tubular necrosis secondary to prolonged diarrheal illness. His creatinine w as found to be 2.9. He was treated with IV metronidazole and oral vancomycin. He was given a 12 day course of oral vancomycin after discharge. His creatinine stabilized at 2.38-2.4 at discharge. *The 07/16 discharge summary notes that a CT scan showed an exophytic lesion in the right k idney measuring 1.[address] cm[address] And recommends a CT/ MRI with and without contrast as needed for fur ther assessment was the patient kidney function returns to baseline. I am unable to acquire the CT report. *MRI without Gadolinium on 10/18/16: "Multiple bilateral renal cysts. No suspicious finding s." The patient has history of hypertension since the , Diabetes Mellitus since the mid . History of a blood clot in his left leg in 1992; his BG and BP control has been reporte dly inadequate. he denies any history of prolonged exposure to NSAIDs or recent exposure to known nephrotoxins; he denies any recurrent nephrolithiasis or pyelonephritis. he tells me t hat he's had no history of urinary retention, gross hematuria or dysuria; he has no incontin ence symptoms. No symptoms of UTI. No history of frequency, nocturia, weak urinary stream, h esitancy, intermittence, incomplete emptying or urgency; he has no nocturia lately. No his tory of passing kidney stones; he has no foamy urine either; his baseline Creatinine was 1. 6-1.8 before 07/2016. There is no family history of renal genetic diseases such as PKD. He says that he feels 'fair ' today. Reports chronic stomach issues, Fatigue; he denies a ny blurred vision tinnitus, headache, fever, chills, or cough. No nausea, vomiting, abdomin al pain, diarrhea, melena, or hematochezia. No chest pain, palpitation, dizziness, loss of consciousness, orthopnea, paroxysmal nocturnal dyspnea; he has ROBLES, chronic; his leg edema i s also chronic. The following portions of the patient's history were reviewed and updated as appropriate: a llergies, current medications, past medical history, past social history, past surgical hist ory, family history and problem list. As in History of Present Illness & in Assessment. All the pertinent systems were reviewed a nd were otherwise negative. Current Outpatient Medications: albuterol 2.5 mg/3 mL nebulizer solution, Take 2.5 mg by nebulization every 6 hours as needed for Wheezing., Disp: , Rfl: albuterol-ipratropium (DUONEB) 2.5-0.5 mg/3 mL SOLN, Take 3 mLs by nebulization Before breakfast, dinner and bedtime., Disp: , Rfl: aluminum & magnesium hydroxide-simethicone (MAALOX PLUS DOUBLE STRENGTH) 400-400-40 mg /5 mL suspension, Take 15 mLs by mouth every 4 hours as needed for Indigestion., Disp: , Rfl : amLODIPine (NORVASC) 5 mg tablet, Take 1 tablet by mouth Daily., Disp: 90 tablet, Rfl: 3 aspirin 81 mg chewable tablet, Take 81 mg by mouth Daily., Disp: , Rfl: atorvaSTATin (LIPITOR) 80 MG tablet, Take 80 mg by mouth nightly., Disp: , Rfl: calcitriol (ROCALTROL) 0.25 mcg capsule, Take 1 capsule by mouth Daily., Disp: 90 caps ule, Rfl: 3 CHOLECALCIFEROL PO, Take 1 tablet by mouth Daily., Disp: , Rfl: clopidogrel (PLAVIX) 75 mg tablet, Take 75 mg by mouth Daily., Disp: , Rfl: cyanocobalamin (VITAMIN B-12) 1000 MCG tablet, Take 1,000 mcg by mouth every 14 days., Disp: , Rfl: darbepoetin amarjit (ARANESP, ALBUMIN FREE,) 100 mcg/mL injection, Inject 1 mL under the skin Every 30 days., Disp: 1 mL, Rfl: 0 docusate-senna (SENOKOT-S) 50-8.6 mg per tablet, Take 2 tablets by mouth Daily., Disp: , Rfl: doxepin (SINEQUAN) 10 mg capsule, 50 mg., Disp: , Rfl: 0 ferrous sulfate 324 (65 Fe) MG EC tablet, Take 65 mg of iron by mouth 4 times daily wi meals., Disp: , Rfl: insulin aspart (NOVOLOG PENFILL) 100 units/mL injection cartridge, Inject under the s kin 3 times daily (before meals). Per following sliding scale: 151 200 = 2 units, 201-250 = 4 units, 251 300 = 6 units, 301 350 = 8 units, greater than 350 = 10 units and call M. D., Disp: , Rfl: ipratropium (ATROVENT) 500 mcg/2.5 mL nebulizer solution, Take 0.5 mg by nebulization 4 (four) times daily., Disp: , Rfl: LANTUS SOLOSTAR 100 UNIT/ML injection (pen), Inject 25 Units under the skin nightly., Disp: , Rfl: 0 LINZESS 145 MCG capsule, , Disp: , Rfl: 1 lisinopril (PRINIVIL, ZESTRIL) 10 mg tablet, , Disp: , Rfl: 1 Magnesium 65 MG TABS, Take 1 tablet by mouth Daily., Disp: , Rfl: ondansetron (ZOFRAN ODT) 8 mg disintegrating tablet, , Disp: , Rfl: 0 ONE TOUCH ULTRA TEST strip, USE TO TEST BLOOD SUGAR five times a day, Disp: , Rfl: 1 oxyCODONE (ROXICODONE) 15 mg immediate release tablet, Take 15 mg by mouth every 4 bisi rs., Disp: , Rfl: oxygen, Inhale 4 L into the lungs as needed (If napping or having increased pain durin g the day)., Disp: , Rfl: polyethylene glycol (MIRALAX) packet, Take 17 g by mouth Daily., Disp: , Rfl: sodium bicarbonate 650 mg tablet, , Disp: , Rfl: 0 torsemide (DEMADEX) 20 mg tablet, Take 40 mg by mouth Daily., Disp: , Rfl: 1 VENTOLIN HFA 108 (90 Base) MCG/ACT inhaler, inhale 2 puffs by mouth every 4 hours if n eeded for shortness of breath, Disp: , Rfl: 0 Physical Exam: BP (!) 100/30 | Pulse 70 | Ht 1.727 m (5' 8") | Wt 81.1 kg (178 lb 12.8 oz) | BMI 27.19 kg/m General appearance: Pleasant, not in acute distress. Wheel chair bound. Neck: Supple without tracheal deviation or jugular venous distension. Head and ENT: Head is atraumatic. The oropharynx is without erythema or thrush. Eyes: Anicteric. The extraocular muscle movements are normal. Lungs: Good A/E to auscultation except for a decreased A/E at the left base. There are mild diffuse inspiratory wheezes. Heart: Regular rate and rhythm without any rub, gallop. Faint systolic murmur at the LSB, not radiating to the LAAL. Abdominal exam: Obese. Soft and nontender with normal bowel sounds. Musculoskeletal: No costovertebral angle tenderness bilaterally. Extremities: Warm to touch with 2+ right leg edema. No right thigh edema. Left AKA. There is no cyanosis. Skin: There are no rashes, petechiae; ecchymosis on arms. Neurological: Awake, alert, and oriented to time, place, and person. Normal gross motor po wer. There is no asterixis. Psychiatric: The patient s behavior is normal. Judgment and thought content are normal. Access: right AV fistula with a good thrill. Lab Results Component Value Date HGB 8.6 (A) 01/07/2020 HGB 10.5 (L) 09/07/2019 HCT 31.0 (L) 09/07/2019 NA 134 01/07/2020 K 4.2 01/07/2020 CL 96 01/07/2020 CO2 24 01/07/2020 CO2 29 08/24/2019 BUN 55 (A) 01/07/2020 CREA 4.42 (A) 01/07/2020 CREA 4.60 (A) 08/09/2019 CREA 4.08 (A) 07/19/2019 CALCIUM 9.5 01/07/2020 CALCIUM 10.5 09/07/2019 ALBUMIN 3.4 (A) 01/07/2020 PHOS 4.2 08/05/2016 EGFR 13.0 (A) 01/07/2020 FERRITIN 107.3 07/19/2019 PTH 146.6 (A) 05/27/2019 LABPROT 6.2 10/10/2019 LABPROT 2445.6 (A) 03/01/2019 Assessment: Mr. Andujar is a 78 y.o. male patient with stage V CKD on a background of diabetes & hyperte nsion and ZEKE's (hospitalization for C-diff and dehydration). The most likely pathology here is that of diabetic nephropathy +/- hypertensive nephrosclerosis/arteriolosclerosis. He was hospitalized in 10/2016 with severe pneumonia, severe ZEKE; needed BINDERY MANAGER for ~5 weeks b efore renal function recovery mid 12/2016. RENAL FUNCTION: Below baseline vs 2015. He had a stage 1 ZEKE (acute kidney injury) in ear ly 07/2017 BLOOD PRESSURE: Reportedly better control, 130's - 140's / 40's - 50's BLOOD SUGAR: Reports it better controlled ELECTROLYTES: Acceptable ANEMIA: Moderate; Fe deficiency is still moderate VITAMIN D: Better with replacement PARATHYROID HORMONE: Mildly up for him URIC ACID: Improved PROTEINURIA: Moderate-severe historically URINALYSIS: No UTI or hematuria VOLUME STATUS: Euvolumic. Discussions/Recommendations: I discussed today with Mr. Andujar the meaning of his significant CKD and the interaction of that with his diabetes & HTN. I stressed the importance of keeping his BG & BP controlled and avoiding getting dehydra cassi if we are to have a chance at helping preserve his renal function. He showed good under standing. I gave him instructions on how to chart his blood pressure in the appropriate manner at home. He is to call us if they fall outside of the optimal provided range. He will bring his sphygmomanometer for validation once a year. He will strictly abide by a low salt, low phosphorus & low purine diet. He will avoid all kinds of NSAIDs for analgesia. Given his severely depressed & worsening GFR, he may need to start HD/UF soon. The patie nt understands fully the meaning of dialysis, its prognosis & complications, including but n ot limited to blood loss, clotting, infection, hypotension & ; he understands the pros & cons, and all the options available, including no dialysis at all. The patient does want t o proceed with dialysis when it is needed. Also: I see no need for acute BINDERY MANAGER. I see no need to send him to the ED. I will not change any of his vasoactive meds today. He will bring me back his home weights & BP charts if they fall outside of the optimal p rovided range. At that time, I will decide whether any changes to his vasoactive regimen are warranted. (because of his low GFR, his hx of severe ZEKE, his low DBP's: I had been unable to uptitrate his RAAS blockade) I asked him to elevate his leg for 1 and 1/2 hours once a day. He knows that he still ne eds to be active and ambulatory carefully as possible. I decreased his Calcitriol to 0.25 mcg 4 times a week. I kept his Cholecalciferol (Vitam in D3) to 2,000 units daily. I kept him on Ferrous Sulfate 325 mg daily. I warned him about its possible side effects including constipation. he voiced good understanding. I kept his Aranesp to 100 mcg monthly. If his Hb does not improve with this: We will consider sending for stool for occult bloo d and/or sending him for IV Ferahame if indicated.* I strongly advised him to keep off smoking; I explained the benefits of doing that. He voic ed good understanding. I asked him to F/U with the Sleep Medicine team. He will F/U with your office regularly. I sent him for a repeat BMP, CBC every 2 weeks. He will have RFP, CBC, Mag, Fe studies, Ferritin, intact PTH done before he comes back i n [address] Silva for the opportunity to see this high-complexity patient in ED today , as we are trying to prevent a hospitalization for severe/worsening renal failure and/or li fe-threatening electrolytes or volume imbalance. Please do not hesitate to call me at any ti me with questions or concerns. Truly yours, Farrukh Acuna MD FACP, ELVA documented in this enco unter Plan of Treatment +--------+ + + + + | Date | Type | Specialty | Care Team | Description | +--------+ + + + + | 10/30/ | Virtual | Nephrology | Farrukh Acuna MD | | | 2019 | Office | | [address] [facility] | | | | Visit | | [address] [place], [place] | | | | | | [address] | | | | | | | | +--------+ + + + + documented as of this encounter Visit Diagnoses + + | Diagnosis | + + | CKD (chronic kidney disease) stage 5, GFR less than 15 ml/min ([facility]) - Primary Chronic | | kidney disease, Stage V | + + | Anemia of chronic kidney failure, stage 5 (HCC) | + + | Edema of lower extremity Edema | + + | Hypomagnesemia Disorders of magnesium metabolism | + + | Status post fall Unspecified fall | + + | Vitamin D deficiency Unspecified vitamin D deficiency | + + | Tobacco dependence syndrome Tobacco use disorder | + + | Persistent proteinuria Proteinuria | + + | Type 2 diabetes mellitus with diabetic nephropathy, with long-term current use of | | insulin (HCC) | + + | Essential hypertension Unspecified essential hypertension | + + | Iron deficiency Other disorders of iron metabolism | + + documented in this encounter
--- OUTSIDE RECORDS SUMMARY | ~2020-08-16 | XMS | Encounter Summary ---
Demographics + + + | Address | [address] | | | [place] [address] | + + + | Home Phone [...] | [facility] | | | and [place] | + + + | Organization | [facility] | | | and [place] | + [...] Team Providers + +------+ + | Care Leakage Tester Name | Role | Phone | + +------+ + | Rahul Silva MD | PCP | | + +------+ + Encounter Details +--------+ + + + + | Date | Type | Department | Care Team | Description | +--------+ + + + + | 11/14/ | Orders Only | [facility] | Olman Toussaint MD | | | 2015 | | [address] | [address] | | | | | [place], [place] | [place], [place] | | | | | [address] | [address] | | | | | [phone] | [phone] | | | | | | | [...] 2020 | Office | | [address] [facility] | | | | Visit | | [address] [place] | | | | | | [address] | | | | | | | | +--------+ + + + + documented as of this encounter Procedures + +--------+ + + + | Procedure Name | Priori | Date/Time | Associated Diagnosis | Comments | | | ty | | | | + +--------+ + + + | CK TOTAL | Routin | 11/14/2016 | | Results for this | | | e | 5:08 AM | | procedure are in the | | | | PST | | results section. | + +--------+ + + + documented in this encounter Results CK Total (11/14/2016 5:08 AM PST) + +-------+ + + + [...] | + + + | Attending/Visit Provider: GER MD, Cary LOVE, , , CELSA, | EXTERNAL LAB | + + + + +---------+ + + | Performing | Address | City/State/Zipcode | Phone Number | | Organization | | | | + +---------+ + + | EXTERNAL LAB | | | | + +---------+ + + documented in this encounter Visit Diagnoses Not on filedocumented in this encounter"
--- OUTSIDE RECORDS SUMMARY | ~2020-08-16 | XMS | Encounter Summary ---
Demographics + + + | Address | [address] | | | [place] [address] | + + + | Home Phone | | + + + | Preferred Language | Unknown | + + + | Marital Status | Single | + + + | Buddhism Affiliation | PRO | + + + | Race | White | + + + | Ethnic Group | Not or | + + + Author + + + | Author | [facility] | + + + | Organization | [facility] | + + + | Address | Unknown | + + + | Phone | Unavailable | + + + Support + + + + + | Name | Relationship | Address | Phone | + + + + + | Darci Andujar | [place] | [place] | | | | | [address] | | + + + + + Care Team Providers + +------+ + | Care Traveling Buyer Name | Role | Phone | + +------+ + PCP | Unavailable | + +------+ + Encounter Details +--------+ + + + + | Date | Type | Department | Care Team | Description | +--------+ + + + + | 03/31/ | Results | Pulmonary Function | Jarod Gupta MD | | | 1992 | Only | Lab at [facility] [address] | [address] | | | | | [address] | [place], | | | | | [place] | [place] [address] | | | | | [place] | [phone] | | | | | [address] | | | | | | [phone] | | | +--------+ + + + [...] + | CHEST, 1 | Radiologist 1: [place], | | | | | VIEW | Idris MONROY-Radiologist | | | | | | 2: PORFIRIO LAMAS, | | | | | | PORFIRIO [...] | | | | | | a Grace-Lupe catheter | | | | | | [...] | | | | placement of a Grace-Lupe | | | | | | catheter. CHEST, | | | | | | SINGLE AP PORTABLE: | | | | | | 03-31-93 AT 1000 HOURS | | | | | | FINDINGS: Since the | | | | | | prior study, the | | | | | | Grace-Lupe catheter has | | | | | [...] IMPRESSION: | | | | | | Grace-Lupe catheter | | | | | | [...] The | | | | | | Grace-Lupe catheter | | | | | | [...] and | | | | | | Grace-Lupe catheter | | | | | | [...] endotracheal | | | | | | tube,Grace-Lupe catheter | | | | | | [...] | | + +---------+ + + | [facility] | | | | | [...] M.D.t: | | | | | | 04/03/93/j My | | | | | | [...] | + + + + + | [facility] | [address] | [place] [address] | | | PATHOLOGY | [place] L[place] | | | + + + + + documented in this encounter Visit Diagnoses Not on filedocumented in this encounter"
--- OUTSIDE RECORDS SUMMARY | ~2020-08-16 | XMS | Encounter Summary ---
Demographics + + + | Address | [address] | | | [place] [address] | + + + | Home Phone [...] Team Providers + +------+ + | Care Knitting Supervisor Name | Role | Phone | [...] + + | 11/08/ | Documentati | [facility] | Alfred, | Results (10/10/19) | | 2019 | on | NEPHROLOGY [place] | [facility] | | | | | [address] | [employer]ing Machine Operator | | | | | [address] | | | | | | [place] | | | | | | [address] | | | | | | [phone] | | | +--------+ + + + [...] 2019 | Office | | [address] [facility] | | | | Visit | | [address] [place], [place] | | | | | | [address] | | | | | | | [...]
--- OUTSIDE RECORDS SUMMARY | ~2020-08-16 | XMS | Clinical Summary ---
Demographics + + + | Address | [address] | | | [place] [address] | + + + | Home Phone [...] Author + + + | Author | [facility] | + + + | Organization | [facility] | + + + | Address | Unknown | + + + | Phone | Unavailable | + + + Support + + + + + | Name | Relationship | Address | Phone | + + + + + | Darci Andujar | [place] | [place] | | | | | [address] | | + + + + + Care Team Providers + +------+ + | Care Field Producer Name | Role | Phone | + +------+ + | Rahul Silva MD | PCP | | + +------+ + Source Comments D[facility] is fully live on both [facility] Ambulatory and [facility] InPatient.[facility] Allergies No Known Allergies Medications + + [...]
--- OUTSIDE RECORDS SUMMARY | ~2020-08-16 | XMS | Encounter Summary ---
Demographics + + + | Address | [address] | | | [place] [address] | + + + | Home Phone [...] Team Providers + +------+ + | Care Consultant Dietitian Name | Role | Phone | + +------+ + | Rahul Silva MD | PCP | | + +------+ + Encounter Details +--------+ + + + + | Date | Type | Department | Care Team | Description | +--------+ + + + + | 07/24/ | Orders Only | [facility] | Provider, | Chronic kidney | | 2019 | | SYSTEM GENERIC OP | MD Jonathan [address] | disease, stage IV | | | | CONVERSION [address] | [address] | (severe) ([facility]); | | | | [address] [place], [place] | [place] [address] | Persistent | | | | [address] | | proteinuria; | | | | [phone] | | Secondary | | | | | | hyperparathyroidism | | | | | | of renal origin | | | | | | ([facility]); Family | | | | | | history of ischemic | | | | | | heart disease and | | | | | | other diseases of | | | | | | the circulatory | | | | | | system | +--------+ + + + + Social [...] 2019 | Office | | [address] [facility] | | | | Visit | | [address] [place] | | | | | | [address] | | | | | | | | +--------+ + + + + + +------+--------+ + + | Name | Type | Priori | Associated Diagnoses | Order Schedule | | | | ty | | | + +------+--------+ + + | Basic Metabolic | Lab | Routin | Chronic kidney | Expected: | | Panel | | e | disease, stage IV | 03/22/2019, Expires: | | | | | (severe) [...] Basic Metabolic | Lab | Routin | Chronic kidney | Expected: | | Panel | | e | disease, stage IV | 06/14/2019, Expires: | | | | | (severe) [...] Function Panel | Lab | Routin | Chronic kidney | Expected: | | | | e | disease, stage IV [...] origin | | | | | | ([facility]) Persistent | | | | | | proteinuria | | + +------+--------+ + + | CBC with | Lab | Routin | Chronic kidney | Expected: | | Differential | | e | disease, stage IV [...] origin | | | | | | ([facility]) Persistent | | | | | | proteinuria | | + +------+--------+ + + | Ferritin | Lab | Routin | Chronic kidney | Expected: | | | | e | disease, stage IV [...] origin | | | | | | ([facility]) Persistent | | | | | | proteinuria | | + +------+--------+ + + | Parathyroid Hormone, | Lab | Routin | Chronic kidney | Expected: | | Intact | | e | disease, stage IV | 08/01/2019, Expires: | | | | | (severe) ([facility]) | 05/31/2020 | | | | | Chronic kidney | | | | | | disease, stage IV | | | | | | (severe) ([facility]) | | | | | | Family [...] origin | | | | | | ([facility]) Persistent | | | | | | proteinuria | | + +------+--------+ + + documented as of this encounter Visit Diagnoses + + | Diagnosis | + + | Chronic kidney disease, stage IV (severe) ([facility]) Chronic kidney disease, Stage IV | | (severe) | + + | Persistent proteinuria Proteinuria | + + | Secondary hyperparathyroidism of renal origin (HCC) Secondary hyperparathyroidism (of | | renal origin) | + + | Family history of ischemic heart disease and other diseases of the circulatory system | + + documented in this encounter"
--- OUTSIDE RECORDS SUMMARY | ~2020-08-16 | XMS | Encounter Summary ---
Demographics + + + | Address | [address] | | | [place] [address] | + + + | Home Phone [...] Team Providers + +------+ + | Care Case Checker Name | Role | Phone | + +------+ + | Rahul Silva MD | PCP | | + +------+ + Encounter Details +--------+ + + + + | Date | Type | Department | Care Team | Description | +--------+ + + + + | 01/11/ | Orders Only | [facility] | Farrukh Acuna MD | Essential | | 2020 | | NEPHROLOGY [place] | [address] [place] | hypertension | | | | [address] [place] | [address] [place], [place] | (Primary Dx); | | | | [address] [place], [place] | [address] | Persistent | | | | [address] | | proteinuria; Anemia | | | | [phone] | | of chronic kidney | | | | | | failure, stage 5 | | | | | | ([facility]); CKD (chronic | | | | | | kidney disease) | | | | | | stage 5, GFR less | | | | | | than 15 ml/min ([facility]) | +--------+ + + + + Social [...] 2020 | Office | | [address] [facility] [place] | | | | Visit | | [address] [facility] [place] | | | | | | [address] | | | | | | | | +--------+ + + + + + +------+--------+ + + | Name | Type | Priori | Associated Diagnoses | Order Schedule | | | | ty | | | + +------+--------+ + + | Basic Metabolic | Lab | Routin | Essential | every 14 days for 3 | | Panel | | e | hypertension | Occurrences starting | | | | | Persistent | 01/11/2020 until | | | | | proteinuria CKD | 01/11/2021 | | | | | (chronic kidney | | | | | | disease) stage 5, | | | | | | GFR less than 15 | | | | | | ml/min (HCC) | | + +------+--------+ + + | CBC with | Lab | Routin | Essential | every 14 days for 3 | | Differential | | e | hypertension | Occurrences starting | | | | | Persistent | 01/11/2020 until | | | | | proteinuria CKD | 01/11/2021 | | | | | (chronic kidney | | | | | | disease) stage 5, | | | | | | GFR less than 15 | | | | | | ml/min (HCC) | | + +------+--------+ + + | Renal Function Panel | Lab | Routin | Essential | Expected: | | | | e | hypertension | 03/11/2020, Expires: | | | | | Persistent | 01/11/2021 | | | | | proteinuria CKD | | | | | | (chronic kidney | | | | | | disease) stage 5, | | | | | | GFR less than 15 | | | | | | ml/min (HCC) | | + +------+--------+ + + | CBC with | Lab | Routin | Essential | Expected: | | Differential | | e | hypertension | 03/11/2020, Expires: | | | | | Persistent | 01/11/2021 | | | | | proteinuria CKD | | | | | | (chronic kidney | | | | | | disease) stage 5, | | | | | | GFR less than 15 | | | | | | ml/min (HCC) | | + +------+--------+ + + | Magnesium | Lab | Routin | Essential | Expected: | | | | e | hypertension | 03/11/2020, Expires: | | | | | Persistent | 01/11/2021 | | | | | proteinuria CKD | | | | | | (chronic kidney | | | | | | disease) stage 5, | | | | | | GFR less than 15 | | | | | | ml/min (HCC) | | + +------+--------+ + + | Iron and Iron | Lab | Routin | Essential | Expected: | | Binding Capacity | | e | hypertension | 03/11/2020, Expires: | | | | | Persistent | 01/11/2021 | | | | | proteinuria Anemia | | | | | | of chronic kidney | | | | | | failure, stage 5 | | | | | | ([facility]) CKD (chronic | | | | | | kidney disease) | | | | | | stage 5, GFR less | | | | | | than 15 ml/min ([facility]) | | + +------+--------+ + + | Ferritin | Lab | Routin | Essential | Expected: | | | | e | hypertension | 03/11/2020, Expires: | | | | | Persistent | 01/11/2021 | | | | | proteinuria Anemia | | | | | | of chronic kidney | | | | | | failure, stage 5 | | | | | | ([facility]) CKD (chronic | | | | | | kidney disease) | | | | | | stage 5, GFR less | | | | | | than 15 ml/min ([facility]) | | + +------+--------+ + + | Parathyroid Hormone, | Lab | Routin | Essential | Expected: | | Intact | | e | hypertension | 03/11/2020, Expires: | | | | | Persistent | 01/11/2021 | | | | | proteinuria CKD | | | | | | (chronic kidney | | | | | | disease) stage 5, | | | | | | GFR less than 15 | | | | | | ml/min ([facility]) | | + +------+--------+ + + documented as of this encounter Visit Diagnoses + + | Diagnosis | + + | Essential hypertension - Primary Unspecified essential hypertension | + + | Persistent proteinuria Proteinuria | + + | Anemia of chronic kidney failure, stage 5 ([facility]) | + + | CKD (chronic kidney disease) stage 5, GFR less than 15 ml/min ([facility]) Chronic kidney | | disease, Stage V | + + documented in this encounter"
--- OUTSIDE RECORDS SUMMARY | ~2020-08-16 | XMS | Encounter Summary ---
Demographics + + + | Address | [address] | | | [place] [address] | + + + | Home Phone [...] Team Providers + +------+ + | Care Boiler Operator Name | Role | Phone | [...] + + | 11/12/ | Documentati | [facility] | Simon, | Results (11/10/19) | | 2019 | on | NEPHROLOGY [place] | [facility] | | | | | [address] [place] | Boilermaker Welder | | | | | [address] [place], [place] | | | | | | [address] | | | | | | [phone] | | | +--------+ + + + [...] | | | Visit | | [address] [place], [place] | | | | | | [address] | | | | | | | [...]
--- OUTSIDE RECORDS SUMMARY | ~2020-08-16 | XMS | Encounter Summary ---
Demographics + + + | Address | [address] | | | [place] [address] | + + + | Home Phone [...] Team Providers + +------+ + | Care Vehicle Calibration Engineer Name | Role | Phone | [...] [address] | | | | | [place], [place] | [place], [place] | | | | | [address] | [address] | | | | | [phone] | | | | | | | [...] 2020 | Office | | [address] [facility] | | | | Visit | | [address] [place] | | | | | | [address] | | | | | | | | +--------+ + + + + documented as of this encounter Procedures + +--------+ + + + | Procedure Name | Priori | Date/Time | Associated Diagnosis | Comments | | | ty | | | | + +--------+ + + + | EXTERNAL LAB: [facility] | Routin | 11/10/2016 | | Results [...] + + + + | Non- | 3.11 (L) | 4.20 - 5.70 | EXTERNAL | | | Red Blood | | 10*6/uL | LAB | | | Cells | | | | | | Counted | | | | | + + + + + + | Hemoglobin | 9.6 (L) | 13.2 - 17.0 [...]
--- OUTSIDE RECORDS SUMMARY | ~2020-08-16 | XMS | Encounter Summary ---
Demographics + + + | Address | [address] | | | [place] [address] | + + + | Home Phone [...] Team Providers + +------+ + | Care Turbine Subassembler Name | Role | Phone | + +------+ + | Rahul Silva MD | PCP | | + +------+ + Encounter Details +--------+ + + + + | Date | Type | Department | Care Team | Description | +--------+ + + + + | 07/27/ | Orders Only | [facility] | Farrukh Acuna MD | Chronic kidney | | 2019 | | NEPHROLOGY [place] | [address] [place] | disease, stage IV | | | | [address] [place] | [address] [place], [place] | (severe) (HCC); | | | | [address] [place], [place] | [address] | Chronic kidney | | | | [address] | | disease, stage IV | | | | [phone] | | (severe) (HCC); | | | [...] 2019 | Office | | [address] [facility] [place] | | | | Visit | | [address] [place], [place] | | | | | | [address] | | | | | | | [...] origin | | | | | | ([facility]) Persistent | | | | | | proteinuria | | + +------+--------+ + + documented as of this encounter Visit Diagnoses + + | Diagnosis | + + | Chronic kidney disease, stage IV (severe) ([facility]) Chronic kidney disease, Stage IV | | (severe) | + + | Family history of ischemic heart disease and other diseases of the circulatory system | + + | Secondary hyperparathyroidism of renal origin (HCC) Secondary hyperparathyroidism (of | | renal origin) | + + | Persistent proteinuria Proteinuria | + + documented in this encounter"
--- OUTSIDE RECORDS SUMMARY | ~2020-08-16 | XMS | Encounter Summary ---
Demographics + + + | Address | [address] | | | [place] [address] | + + + | Home Phone [...] Team Providers + +------+ + | Care Steel Barrel Reamer Name | Role | Phone | + [...] | | [address] [place] | [place] [address] | | | | | [place] [address] | | | | | | [phone] | | | +--------+ + + + [...] 2019 | Office | | [address] [facility] | | | | Visit | | [address] [place] | | | | | | [address] | | | | | | | [...]
--- OUTSIDE RECORDS SUMMARY | ~2020-08-16 | XMS | Encounter Summary ---
Demographics + + + | Address | [address] | | | [place] [address] | + + + | Home Phone [...] Team Providers + +------+ + | Care Six Color Press Operator Name | Role | Phone [...] [address] | | | | | [place], [place] | [place], [place] | | | | | [address] | [address] | | | | | [phone] | | | | | | | [...] 2020 | Office | | [address] [facility] | | | | Visit | | [address] [place] | | | | | | [address] | | | | | | | | +--------+ + + + + documented as of this encounter Procedures + +--------+ + + + | Procedure Name | Priori | Date/Time | Associated Diagnosis | Comments | | | ty | | | | + +--------+ + + + | EXTERNAL LAB: [facility]IA | Routin | 11/08/2016 | | Results [...]
--- OUTSIDE RECORDS SUMMARY | ~2020-08-16 | XMS | Encounter Summary ---
Demographics + + + | Address | [address] | | | [place] [address] | + + + | Home Phone [...] Providers + +------+ + | Care Gas Appliance Servicer Helper Name | Role | Phone | + +------+ + | Rahul Silva MD | PCP | | + +------+ + Encounter Details +--------+ + + + + | Date | Type | Department | Care Team | Description | +--------+ + + + + | 02/12/ | Orders Only | [facility] | Farrukh Acuna MD | | | 2018 | | NEPHROLOGY [place] | [address] [place] | | | | | [address] [place] | [address] [place], [place] | | | | | [address] [place], [place] | [address] | | | | | [address] | | | | | | [phone] | | | +--------+ + + + [...] 2020 | Office | | [address] [facility] | | | | Visit | | [address] [place], [place] | | | | | | [address] | | | | | | | [...] | | | LAB | | | [place] | | | | | + + [...]
--- OUTSIDE RECORDS SUMMARY | ~2020-08-16 | XMS | Encounter Summary ---
Demographics + + + | Address | [address] | | | [place] [address] | + + + | Home Phone | | + + + | Preferred Language | Unknown | + + + | Marital Status | | + + + | Congregational Affiliation | 1077 | + + + [...] Team Providers + +------+ + | Care Hvac Tech Name | Role | Phone | [...] [address] | | | | | [place], [place] | [place], [place] | | | | | [address] | [address] | | | | | [phone] | | | | | | | [...] | Office | | [address] [facility] | | | | Visit | | [address] [place] | | | | | | [address] | | | | | | | | +--------+ + + + + documented as of this encounter Procedures + +--------+ + + + | Procedure Name | Priori | Date/Time | Associated Diagnosis | Comments | | | ty | | | | + +--------+ + + + | AMYLASE | Routin | 11/08/2016 | | Results for this | | | e | 4:37 AM | | procedure are in the | | | | PST | | results section. | + +--------+ + + + documented in this encounter Results Amylase (11/08/2016 4:37 AM PST) + +---------+ + + + | Component | Value | Ref Range | Performed | Pathologist | | | | | At | Signature | + +---------+ + + + | Amylase | 184 (H) | 25 - 115 U/L | [...]
--- OUTSIDE RECORDS SUMMARY | ~2020-08-16 | XMS | Encounter Summary ---
Demographics + + + | Address | [address] | | | [place] [address] | + + + | Home Phone [...] Team Providers + +------+ + | Care Direct Entry Midwife Name | Role | Phone | + [...] | | [address] [place] | [place] [address] | | | | | [place] [address] | | | | | | [phone] | | | +--------+ + + + [...] Office | | [address] [facility] | | | | Visit | | [address] [place] | | | | | | [address] | | | | | | | | +--------+ + + + + documented as of this encounter Procedures + +--------+ + + + | Procedure Name | Priori | Date/Time | Associated Diagnosis | Comments | | | ty | | | | + +--------+ + + + | XR CHEST 1 VIEW | Routin | 02/14/2020 | | Results for this | | | e | 12:00 AM | | procedure are in the | | | | PDT | | results section. | + +--------+ + + + documented in this encounter Results XR Chest 1 Vw (02/14/2020 12:00 AM PDT) + + | Specimen [...]
--- OUTSIDE RECORDS SUMMARY | ~2020-08-16 | XMS | Encounter Summary ---
Demographics + + + | Address | [address] | | | [place] [address] | + + + | Home Phone | | + + + | Preferred Language | Unknown | + + + | Marital Status | Single | + + + | Hinduism Affiliation | PRO | + + + [...] [place] | | | | | [address] | | + + + + + Care Team Providers + +------+ + | Care Rubber Goods Repairer Name | Role | Phone | + +------+ + PCP | Unavailable | + +------+ + Encounter Details +--------+ + + + + | Date | Type | Department | Care Team | Description | +--------+ + + + + | 02/26/ | Results | | Other, Faculty | | | 1993 | Only | | [phone] | | +--------+ + + + + [...] | | + +---------+ + + | [facility] DEPARTMENT OF | | | | | RADIOLOGY | | | | + +---------+ + + documented in this encounter Visit Diagnoses Not on filedocumented in this encounter"
--- OUTSIDE RECORDS SUMMARY | ~2020-08-16 | XMS | Encounter Summary ---
Demographics + + + | Address | [address] | | | [place] [address] | + + + | Home Phone | | + + + | Preferred Language | Unknown | + + + | Marital Status | | + + + | Catholic Affiliation | 1077 | + + + | Race | White | + + + | Ethnic Group | Not or | + + + Author + + + | Author | [facility] | | | and [place] | + + + | Organization | [facility] | | | [...] Team Providers + +------+ + | Care Cessation Systems Outreach Specialist Name | Role | Phone | + +------+ + | Rahul Silva MD | PCP | | + +------+ + Reason for Visit +---------+ + | Reason | Comments | +---------+ + | Results | 01/07/20 | +---------+ + Encounter Details +--------+ + + + + | Date | Type | Department | Care Team | Description | +--------+ + + + + | 01/10/ | Documentati | [facility] | Simon, | Results (01/07/20) | | 2020 | on | NEPHROLOGY [place] | [facility] | | | | | [address] [place] | Shafting Cleaner | | | | | [address] [place], [place] | | | | | | [address] | | | | | | [phone] | | | +--------+ + + + [...] Office | | [address] [facility] | | | | Visit | | [address] [place], [place] | | | | | | [address] | | | | | | | | +--------+ + + + + documented as of this encounter Procedures + +--------+ + + + | Procedure Name | Priori | Date/Time | Associated Diagnosis | Comments | | | ty | | | | + +--------+ + + + | EXTERNAL LAB: ESA | Routin | 01/07/2020 | | Results for this | | INTACT | e | | | procedure are in the | | | | | | results section. | + +--------+ + + + | CBC NO DIFFERENTIAL | Routin | 01/07/2020 | | Results for this | | | e | | | procedure are in the | | | | | | results section. | + +--------+ + + + | IRON AND IRON | Routin | 01/07/2020 | | Results for this | | BINDING CAPACITY | e | | | procedure are in the | | | | | | results section. | + +--------+ + + + | MAGNESIUM | Routin | 01/07/2020 | | Results for this | | | e | | | procedure are in the | | | | | | results section. | + +--------+ + + + | RENAL FUNCTION PANEL | Routin | 01/07/2020 | | Results for this | | | e | | | procedure are in the | | | | | | results section. | + +--------+ + + + documented in this encounter Results External Lab: PTH, Intact (01/07/2020) + +-------+ + + + | Component | Value | Ref Range | Performed | Pathologist | | | | | At | Signature | + +-------+ + + + | PTH Intact, | 24.33 | 15 - 65 | | | | External | | | | | + +-------+ + + + + + | Specimen | + + | | + + CBC with Manual Differential (01/07/2020) + + + + + + | Component | Value | Ref Range | Performed | Pathologist | | | | | At | Signature | + + + + + + | WBC | 8.2 | 4.35 - 11.0 | | | + + + + + + | Red Blood | 3.02 (A) | 4.30 - 5.70 | | | | Cells | | M/uL | | | + + + + + + | Hemoglobin | 8.6 (A) | 13.5 - 18.0 | | | + + + + + + | Hematocrit, | 25.9 (A) | 41.0 - 50.0 % | | | | POC | | | | | + + + + + + | MCV | 85.7 | 81.0 - 99.0 fL | | | + + + + + + | MCH | 28.0 | 27.0 - 33.0 pg | | | + + + + + + | MCHC | 33.0 | 30.0 - 36.0 | | | | | | g/dL | | | + + + + + + | Platelet | 279 | 140 - 440 | | | | Count | | | | | | Plasma | | | | | + + + + + + | RDW | 15.7 (A) | 10.5 - 15.0 | | | + + + + + + | Neutrophils | 65.4 | 39 - 80 | | | | , Absolute | | | | | + + + + + + | Absolute | 12.7 (A) | 24 - 44 | | | | Lymphocytes | | | | | + + + + + + | Absolute | 9.5 | 0 - 12 | | | | Monocytes | | | | | + + + + + + | Eosinophils | 10.2 (A) | 0 - 6 | | | | , Absolute | | | | | + + + + + + | Basophils, | 1.1 | 0 - 2 | | | | Absolute | | | | | + + + + + + + + | Specimen | + + | Blood | + + Magnesium (01/07/2020) + +-------+ + + + | Component [...] + + Iron and Iron Binding Capacity (01/07/2020) + +-------+ + + + | Component | Value | Ref Range | Performed | Pathologist | | | | | At | Signature | + +-------+ + + + | Iron | 58 | 37 - 160 ug/dL | | | + +-------+ + + + | Iron | 22 | 20 - 55 % | | | | Saturation | | | | | + +-------+ + + + | TIBC | 268 | 245 - 400 ug/dL | | | + +-------+ + + + | Ferritin, | 201.6 | 30 - 400 | | | | External | | | | | + +-------+ + + + | TRANSFERRIN | 191.2 | 180.0 - 329.0 | | | | | | mg/dL | | | + +-------+ + + + + + | Specimen | + + | Blood | + + Renal Function Panel (01/07/2020) + + + + + + | Component | Value | Ref Range | Performed | Pathologist | | | | | At | Signature | + + + + + + | Na | 134 | 132 - 143 | | | [...] + + + + | Glucose | 257 (A) | 70 - 100 mg/dL | | | + + + + + + | BUN | 55 (A) | 6 - 23 mg/dL | | | + + + + + + | Creatinine | 4.42 (A) | 0.70 - 1.18 | | | | | | mg/dL | | | + + + + + + | Estimated | 13.0 (A) | 60.0 - 140.0 | | | | GFR | | mL/min/1.73m2 | | | + + + + + + | BUN/Creatin | 12.4 | 6.0 - 28.6 | | | | ine Ratio | | | | | + + + + + + | Albumin | 3.4 (A) | 3.5 - 5.0 g/dL | | | + + + + + + | Calcium | 9.5 | 8.5 - 10.3 | | | + + + + + + | PHOSPHORUS | 5.0 | 2.5 - 5.0 | | | + + + + + + + + | Specimen | + + | Blood | + + documented in this encounter Visit Diagnoses Not on filedocumented in this encounter"
--- OUTSIDE RECORDS SUMMARY | ~2020-08-16 | XMS | Encounter Summary ---
Demographics + + + | Address | [address] | | | [place] [address] | + + + | Home Phone [...] Team Providers + +------+ + | Care Geospatial Analyst Name | Role | Phone | [...] [address] | | | | | [place], [place] | [place], [place] | | | | | [address] | [address] | | | | | [phone] | | | | | | | [...] 2020 | Office | | [address] [facility] | | | | Visit | | [address] [place] | | | | | | [address] | | | | | | | | +--------+ + + + + documented as of this encounter Procedures + +--------+ + + + | Procedure Name | Priori | Date/Time | Associated Diagnosis | Comments | | | ty | | | | + +--------+ + + + | HIV 1 AND 2 ANTIBODY | Routin | 11/08/2016 | | Results for this | | DIFFERENTIATION | e | 4:37 AM | | procedure are in the | | | | PST | | results section. | + +--------+ + + + documented in this encounter Results HIV 1 and 2 Antibody Differentiation (11/08/2016 4:37 AM PST) + + + + + + | Component | Value | Ref Range | Performed | Pathologist | | | | | At | Signature | + + + + + + | HIV 1 and 2 | NON REACTIVEComment: THE | | EXTERNAL | | | Ab | NON REACTIVE HIV 1/2 | | LAB | | | | ANTIBODY RESULT | | | | | | INDICATES THAT | | | | | | ANTIBODIES TO HIV 1/2 | | | | | | HAVE NOT BEEN DETECTED | | | | | | IN THIS SPECIMEN. THIS | | | | | | RESULT DOES NOT PRECLUDE | | | | | | PREVIOUS EXPOSURE OR | | | | | | INFECTION. | | | | + + + [...]
--- OUTSIDE RECORDS SUMMARY | ~2020-08-16 | XMS | Encounter Summary ---
Demographics + + + | Address | [address] | | | [place] [address] | + + + | Home Phone [...] Team Providers + +------+ + | Care Stopping Builder Name | Role | Phone | + [...] + + | 03/23/ | Documentati | [facility] | Simon, | Results (03/21/20) | | 2020 | on | NEPHROLOGY [place] | [facility] | | | | | [address] | Plastic Welding Machine Operator | | | | | [address] [facility] | | | | | | [place], [place] | | | | | | [address] | | | | | | [phone] | | | +--------+ + + + [...] | Visit | | [address] [facility] [place] | | | | | | [address] | | | | | | | [...]
--- OUTSIDE RECORDS SUMMARY | ~2020-08-16 | XMS | Encounter Summary ---
Demographics + + + | Address | [address] | | | [place] [address] | + + + | Home Phone [...] + + | Author | [facility] | | | and [place] | + + + | Organization | [facility] | | | and [place] | + + + | Address | Unknown | + + + | Phone | Unavailable | + + + Support + + +---------+ + | Name | Relationship | Address | Phone | + + +---------+ + | Charlotte nAdujar | ECON | Unknown | | + + +---------+ + Care Team Providers + +------+ + | Care Library Helper Name | Role | Phone | + +------+ + | Mehrdad Bergman | PCP | | + +------+ + Encounter Details +--------+ + + + + | Date | Type | Department | Care Team | Description | +--------+ + + + + | 06/05/ | Virtual | [facility] | Farrukh Acuna MD | CKD (chronic kidney | | 2019 | Office | NEPHROLOGY [place] | [address] [place] | disease) stage 5, | | | Visit | [address] | [address] [place], [place] | GFR less than 15 | | | | [address] | [address] | ml/min (HCC) | | | | [place], [place] | | (Primary Dx); Anemia | | | | [address] | | of chronic kidney | | | | [phone] | | failure, stage 5 | | | | | | ([facility]); Persistent | | | | | | proteinuria; | | | | | | Essential | | | | | | hypertension; Iron | | | | | | deficiency; | | | | | | Secondary | | | | | | hyperparathyroidism | | | | | | (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); Edema of | | | | | | lower extremity; | | | | | | Tobacco dependence | | | | | | syndrome | +--------+ + + + + Social [...] + + + | Blood Pressure | 156/45 | 06/05/2020 1:58 PM | | | | | PDT | | + + + + + | Pulse | 71 | 06/05/2020 1:58 PM | | | | | PDT [...] + + + + | Weight | 84.4 kg (186 lb) | 06/05/2020 1:58 PM | | | | | PDT | | + + + + + | Height | - | - | | + + + + + | Body Mass Index | 28.28 | 01/10/2020 2:18 PM | | | | | PST | | + + + + + documented in this encounter Patient Instructions Patient Instructions Farrukh Acuna MD - 06/05/2020 2:00 PM PDTDiscussions/Recommendations : I discussed today with Mr. Andujar [...] Also: I see no need for acute CLINIC MANAGER. I see no need to send [...] active and ambulatory carefully as possible. I sent him for the second IV Ferahame course. I strongly advised him to keep off smoking; I explained the benefits of doing that. He voic ed good understanding. He is to F/U with the Sleep Medicine team. He will F/U with your office regularly. I sent him for a repeat BMP, CBC every 4 weeks. He will have RFP, CBC, Fe studies, Ferritin, intact PTH, UTPCR done before he comes back in 2 months. documented in this encounter Progress Notes Farrukh Acuna MD - 06/05/2020 2:00 PM PDT Patient Active Problem List Diagnosis Date Noted [...] obstructive pulmonary disease) 02/16/[address] Bergman: 22 I saw your patient Mr. Andujar on an urgent basis in F/U today with his daughter + he is her e to F/U on his severe CKD & its associated complications. On 05/27/19, his sCr & eGFR were 4.44 & 13 vs 3.03 & 20 on 03/01/19. He was in the ED at [facility] in late 05/2020 with CP & dyspnea; given bronchodilators, diuresed & felt better. He was in the ED in 10/2019 [...] 10/2016 with severe pneumonia, severe ZEKE; needed CLINIC MANAGER for ~5 weeks b efore renal function recovery mid 12/2016. He was admitted to [facility] for 3 nights in July 2016 [...] I am unable to acquire the CT report, despite repeated such requests. *MRI without Gadolinium on 10/18/16: "Multiple bilateral [...] , Rfl: sodium bicarbonate 650 mg tablet, take 1 tablet by mouth four times a day, Disp: 1080 tablet, Rfl: 3 torsemide (DEMADEX) 20 mg tablet, Take 2 tablets by mouth Daily., Disp: 180 tablet, Rf l: 3 TRELEGY ELLIPTA 100-62.5-25 MCG/INH inhaler, inhale 1 puff by mouth once daily, Disp: , Rfl: VENTOLIN HFA 108 (90 Base) MCG/ACT inhaler, inhale 2 puffs by mouth every 4 hours if n eeded for shortness of breath, Disp: , Rfl: 0 Physical Exam: BP 156/45 | Pulse 71 | Wt 84.4 kg (186 lb) | BMI 28.28 kg/m General appearance: Pleasant, not in acute distress. Neck: Supple without tracheal deviation or jugular venous distension. Head and ENT: Head is atraumatic. Hearing is appropriate. Eyes: Anicteric. The extraocular muscle movements are normal. Lungs: Good chest expansion. Breathing comfortably. Musculoskeletal: No swelling of hand joints bilaterally. No deformities noted. Extremities: Warm to touch with 1+ right leg edema, as performed by daughter after coachin g on how to do it by myself. There is no digital cyanosis. Skin: There are no rashes, petechiae, or ecchymosis in the visible parts of the skin. Neurological: Awake, alert, and oriented to time, place, and person. Normal gross motor po wer. There is no asterixis. Psychiatric: The patient s behavior is normal. Judgment and thought content are normal. Access: right AV fistula with a good thrill, as performed by daughter after coaching on how to do it by myself. Lab Results Component Value Date HGB 9.7 (A) 05/29/2020 HCT 30.2 (A) 05/29/2020 NA 139 05/29/2020 K 4.3 05/29/2020 CL 103 05/29/2020 CO2 21 05/29/2020 CO2 29 08/24/2019 BUN 50 (A) 05/29/2020 CREA 4.48 (A) 03/21/2020 CREA 4.60 (A) 08/09/2019 CREA 4.08 (A) 07/19/2019 CALCIUM 8.8 05/29/2020 CALCIUM 8.8 05/29/2020 CALCIUM 10.5 09/07/2019 ALBUMIN 3.2 (A) 05/29/2020 PHOS 4.2 08/05/2016 EGFR 14.0 05/29/2020 FERRITIN 299.9 05/29/2020 PTH 94.73 (A) 05/29/2020 LABPROT 4,403.2 (A) 05/29/2020 Assessment: Mr. Andujar is a 79 y.o. male patient with stage V CKD on a background of diabetes & hyperte nsion and ZEKE's (hospitalization for C-diff and dehydration). The most likely pathology here is that of diabetic nephropathy +/- hypertensive nephrosclerosis/arteriolosclerosis. He was hospitalized in 10/2016 with severe pneumonia, severe ZEKE; needed CLINIC MANAGER for ~5 weeks b efore renal function recovery mid 12/2016. RENAL FUNCTION: Below baseline vs 2015. He had a stage 1 ZEKE (acute kidney injury) in ear ly 07/2017. BLOOD PRESSURE: Reportedly better control, 120's - 140's / 40's - 60's BLOOD SUGAR: Reports it uncontrolled ELECTROLYTES: Acceptable ANEMIA: Moderate; Fe deficiency is severe still * VITAMIN D: Better with replacement PARATHYROID HORMONE: Ok for him URIC ACID: Improved PROTEINURIA: Moderate-severe [...] Also: I see no need for acute CLINIC MANAGER. I see no need to send [...] I kept his Calcitriol to 0.25 mcg 4 times a week. I kept his Cholecalciferol (Vitamin D3 ) to 2,000 units daily. I sent him for the second IV Ferahame course. I kept him off of his Oral Iron. I kept his Aranesp at 100 mcg every 4 weeks. I strongly advised him to keep off smoking; I explained the benefits of doing that. He voic ed good understanding. He is to F/U with the Sleep Medicine team. He will F/U with your office regularly. I sent him for a repeat BMP, CBC every 4 weeks. He will have RFP, CBC, Fe studies, Ferritin, intact PTH, UTPCR done before he comes back in [address] Bergman for the opportunity to see this high-complexity patient in ED today, as we are trying to prevent a hospitalization for severe/worsening renal failure and/or life -threatening electrolytes or volume imbalance. Please do not hesitate to call me at any time with questions or concerns. Truly yours, Farrukh Acuna MD [facility] This exam was initially conducted via a secure 256-bit AES encrypted bidirectional video se ssion. You have chosen to receive care through the use of telemedicine. Telemedicine enables [facility] care providers at different locations to provide safe, effective and convenient care throu gh the use of technology. As with any health care service, there are risks associated with t he use of telemedicine, including equipment failure, poor image resolution and information s ecurity issues. Do you understand the risks and benefits of telemedicine as I have explained them to you? " Yes" Have your questions regarding telemedicine been answered? "Yes" Patient is currently at home Do you consent to the use of telemedicine in your medical care today? Yes. Last question, I need to confirm where are you physically located right now? Answer: Patient confirms they are located in a state where IFarrukh MD am licensed. documented in this enco unter Plan of Treatment +--------+ + + + + | Date | Type | Specialty | Care Team | Description | +--------+ + + + + | 10/30/ | Virtual | Nephrology | Farrukh Acuna MD | | | 2019 | Office | | [address] [facility] | | | | Visit | | [address] [place], [place] | | | | | | [address] | | | | | | | | +--------+ + + + + documented as of this encounter Visit Diagnoses + + | Diagnosis | + + | CKD (chronic kidney disease) stage 5, GFR less than 15 ml/min ([facility]) - Primary Chronic | | kidney disease, Stage V | + + | Anemia of chronic kidney failure, stage 5 (HCC) | + + | Persistent proteinuria Proteinuria | + + | Essential hypertension Unspecified [...] syndrome Tobacco use disorder | + + documented in this encounter
--- OUTSIDE RECORDS SUMMARY | ~2020-08-16 | XMS | Encounter Summary ---
Demographics + + + | Address | [address] | | | [place] [address] | + + + | Home Phone [...] Team Providers + +------+ + | Care Ballistician Name | Role | Phone | + [...] + + | 07/21/ | Documentati | [facility] | Simon, | Results (07/19/19) | | 2019 | on | NEPHROLOGY [place] | r[facility] | | | | | [address] [place] | Fur Blowing Machine Operator | | | | | [address] [facility] [place] | | | | | | [address] | | | | | | [phone] | | | +--------+ + + + [...] 2020 | Office | | [address] [facility] | | | | Visit | | [address] [place] | | | | | | [address] | | | | | | | [...]
--- OUTSIDE RECORDS SUMMARY | ~2020-08-16 | XMS | Encounter Summary ---
Demographics + + + | Address | [address] | | | [place] [address] | + + + | Home Phone [...] Team Providers + +------+ + | Care Roll Grinder Operator Name | Role | Phone | + +------+ + | Rahul Silva MD | PCP | | + +------+ + Encounter Details +--------+ + + + + | Date | Type | Department | Care Team | Description | +--------+ + + + + | 06/23/ | Orders Only | [facility] | Farrukh Acuna MD | | | 2018 | | NEPHROLOGY [place] | [address] [place] | | | | | [address] [place] | [address] [place], [place] | | | | | [address] [place], [place] | [address] | | | | | [address] | | | | | | [phone] | | | +--------+ + + + [...] Office | | [address] [facility] | | | | Visit | | [address] [place], [place] | | | | | | [address] | | | | | | | [...]
--- OUTSIDE RECORDS SUMMARY | ~2020-08-16 | XMS | Encounter Summary ---
Demographics + + + | Address | [address] | | | [place] [address] | + + + | Home Phone [...] Team Providers + +------+ + | Care Layer Out Plate Glass Name | Role | Phone | + +------+ + | Rahul Silva MD | PCP | | + +------+ + Encounter Details +--------+ + + + + | Date | Type | Department | Care Team | Description | +--------+ + + + + | 05/27/ | Orders Only | [facility] | Farrukh Acuna MD | | | 2019 | | NEPHROLOGY [place] | [address] [place] | | | | | [address] [place] | [address] [place], [place] | | | | | [address] [place], [place] | [address] | | | | | [address] | | | | | | [phone] | | | +--------+ + + + [...] 2020 | Office | | [address] [facility] | | | | Visit | | [address] [place], [place] | | | | | | [address] | | | | | | | [...] + + + + | Non- | 3.58 (A) | 4.3 - 5.7 [...] | | | LAB | | | [place] | | | | | + + [...]
--- OUTSIDE RECORDS SUMMARY | ~2020-08-16 | XMS | Encounter Summary ---
Demographics + + + | Address | [address] | | | [place] [address] | + + + | Home Phone [...] Team Providers + +------+ + | Care Communications Equipment Installer Name | Role | Phone | [...] [address] | | | | | [place], [place] | [place], [place] | | | | | [address] | [address] | | | | | [phone] | [phone] | | | | | | | [...] Office | | [address] [facility] | | | | Visit | | [address] [place] | | | | | | [address] | | | | | | | [...]
--- OUTSIDE RECORDS SUMMARY | ~2020-08-16 | XMS | Encounter Summary ---
Demographics + + + | Address | [address] | | | [place] [address] | + + + | Home Phone [...] Team Providers + +------+ + | Care Displayer Name | Role | Phone | + +------+ + PCP | Unavailable | + +------+ + Encounter Details +--------+ + + + + | Date | Type | Department | Care Team | Description | +--------+ + + + + | 05/28/ | Hospital | [facility] | Elisabeth, | CORON ATHEROSCL | | 2002 - | Encounter | [facility] | MD Joshua | [place]SEL | | | | CLINICAL DECISION | [address] | | | 05/29/ | | [address] | [address] [place], [place] | | | 2002 | | [place], [place] | [address] | | | | | [address] | [phone] | | | | | [phone] | | | +--------+ + + + [...] [place] | | | | | | [address] | | | | | | | | +--------+ + + + + documented as of this encounter Visit Diagnoses + + | Diagnosis | + + | Coronary atherosclerosis of [place] coronary artery | + + documented in this encounter"
--- OUTSIDE RECORDS SUMMARY | ~2020-08-16 | XMS | Encounter Summary ---
Demographics + + + | Address | [address] | | | [place] [address] | + + + | Home Phone [...] Team Providers + +------+ + | Care Demographer Name | Role | Phone | + +------+ + | Rahul Silva MD | PCP | | + +------+ + Encounter Details +--------+ + + + + | Date | Type | Department | Care Team | Description | +--------+ + + + + | 05/27/ | Orders Only | [facility] | Farrukh Acuna MD | | | 2017 | | NEPHROLOGY [place] | [address] [place] | | | | | [address] [place] | [address] [place], [place] | | | | | [address] [place], [place] | [address] | | | | | [address] | | | | | | [phone] | | | +--------+ + + + [...] 2020 | Office | | [address] [facility] | | | | Visit | | [address] [place], [place] | | | | | | [address] | | | | | | | [...] | | | LAB | | | [place] | | | | | + + [...]
--- OUTSIDE RECORDS SUMMARY | ~2020-08-16 | XMS | Encounter Summary ---
Demographics + + + | Address | [address] | | | [place] [address] | + + + | Home Phone | | + + + | Preferred Language | Unknown | + + + | Marital Status | | + + + | Sabianism Affiliation | 1077 | + + + | Race | White | + + + | Ethnic Group | Not or | + + + Author + + + | Author | [facility] | | | and [place] | + + + | Organization | [facility] | | [...] Providers + +------+ + | Care Project Development Leader Name | Role | Phone | + +------+ + | Rahul Silva MD | PCP | | + +------+ + Reason for Visit +--------+ + | Reason | Comments | +--------+ + | Other | Ramone live order sent confirmation received. | +--------+ + Encounter Details +--------+ + + + + | Date | Type | Department | Care Team | Description | +--------+ + + + + | 12/21/ | Documentati | [facility] | Alfred, | Other ([facility] live | | 2020 | on | NEPHROLOGY [place] | Charlie Abdi | order sent | | | | [address] [facility] [address] | [employer] | confirmation | | | | [address] [place], [place] | | received.) | | | | [address] | | | | | | [phone] | | | +--------+ + + + [...] 2020 | Office | | [address] [facility] | | | | Visit | | [address] [place] | | | | | | [address] | | | | | | | | +--------+ + + + + documented as of this encounter Visit Diagnoses Not on filedocumented in this encounter"
--- OUTSIDE RECORDS SUMMARY | ~2020-08-16 | XMS | Encounter Summary ---
Demographics + + + | Address | [address] | | | [place] [address] | + + + | Home Phone [...] Providers + +------+ + | Care Performance Consultant Name | Role | Phone | [...] | | | [address] | [place] [address] | | | | | [place] [address] | | | | | | [phone] | | | +--------+ + + + [...] | Office | | [address] [facility] [address] | | | | Visit | | [address] [place] | | | | | | [address] | | | | | | | [...]
--- OUTSIDE RECORDS SUMMARY | ~2020-08-16 | XMS | Encounter Summary ---
Demographics + + + | Address | [address] | | | [place] [address] | + + + | Home Phone [...] Team Providers + +------+ + | Care Offset Plate Preparation Supervisor Name | Role | Phone | + +------+ + | Mehrdad Bergman | PCP | | + +------+ + Reason for Visit +--------+--------+ + | Reason | Onset | Comments | | | Date | | +--------+--------+ + | Other | 08/10/ | orders | | | 2019 | | +--------+--------+ + Encounter Details +--------+ + + + + | Date | Type | Department | Care Team | Description | +--------+ + + + + | 08/10/ | Telephone | [facility] | Brian Orosco MD | Other (orders ) | | 2019 | | VASCULAR SURGERY | [address] | | | | | [address] [place] | [place], [place] | | | | | [place], [place] | [address] | | | | | [address] | [phone] | | | | | [phone] | | | +--------+ + + + [...] this encounter Miscellaneous Notes Telephone Encounter - AmritaBradleyPatrice Beti L - 08/10/2019 3:54 PM Haritha, is calling regarding Other (orders ) and would like a call back. Additional Call Details: Requesting call back regarding imaging orders. If this is a symptom based call, was patient offered triage? Not Applicable If this is a symptom based call and you were unable to immediately transfer the call to a rolf munoz combat systems operator was caller made aware that if [...] | | | Visit | | [address] [place], [place] | | | | | | [address] | | | | | | | | +--------+ + + + + documented as of this encounter Visit Diagnoses Not on filedocumented in this encounter"
--- OUTSIDE RECORDS SUMMARY | ~2020-08-16 | XMS | Encounter Summary ---
Demographics + + + | Address | [address] | | | [place] [address] | + + + | Home Phone [...] Author + + + | Author | [facility] | + + + | Organization | [facility] | + + + | Address | Unknown | + + + | Phone | Unavailable | + + + Support + + + + + | Name | Relationship | Address | Phone | + + + + + | Darci Andujar | [address]ER[address] | [place] | | | | | [address] | | + + + + + Care Team Providers + +------+ + | Care Seo Intern Name | Role | Phone | + +------+ + PCP | Unavailable | + +------+ + Encounter Details +--------+ + + + + | Date | Type | Department | Care Team | Description | +--------+ + + + + | 04/06/ | Procedure - | [facility]ive [facility] | Record, Operation | Operative Report | | 1997 | | Center at [facility] 0423 | | | | | Transcribed | [facility] | | | | | | for Health and | | | | | | Healing, [address] | | | | | | [place], [place] | | | | | | [address] | | | | | | [phone] | | | +--------+ + + + [...] 04/06/1998 12:00 AM PDTAssociated Order(s): OPERATION RECORD [place] [address], [place] [address] [facility] OPERATION RECORD Med Rec No.: [id number] Date: 04/06/98 Name: Kavon Andujar ATTENDING SURGEON: Galo Arora M.D. Linen Folder, Division of Plastic & Reconstructive mobile sales expert(S): Barry Fofana M.D. Resident, Plastic Surgery PREOPERATIVE [...] needle counts were correct. Galo Arora M.D. Linen Folder, Division of Plastic & Reconstructive Surgery WOJCIECH/pita [...] + + | 04/06/1998 12:00 AM PDT [place] | | [facility] | | [address] [place] [address] | | [facility] | | | | OPERATION RECORD | | | | Med Rec No.: [id number] Date: 04/06/98 | | | | Name: Andujar, Kavon Morris | | | | | | ATTENDING SURGEON: | | Galo Arora M.D. | | Linen Folder, | | Division of Plastic & | | Reconstructive Surgery | | ASSOCIATE PROFESSOR COMPUTER SCIENCE(S): | | Barry Fofana M.D. | | [...] | | Galo Arora M.D. | | Linen Folder, | | Division of Plastic & | | Reconstructive Surgery | | WOJCIECH/pita | | | | P | | C: 05/12/98 lv | | cc: | | | + + documented in this encounter Visit Diagnoses Not on filedocumented in this encounter"
--- OUTSIDE RECORDS SUMMARY | ~2020-08-16 | XMS | Encounter Summary ---
Demographics + + + | Address | [address] | | | [place] [address] | + + + | Home Phone [...] Team Providers + +------+ + | Care Department Assistant Name | Role | Phone | + +------+ + | Rahul Silva MD | PCP | | + +------+ + Encounter Details +--------+ + + + + | Date | Type | Department | Care Team | Description | +--------+ + + + + | 11// | Orders Only | [facility] | Farrukh Acuna MD | Essential | | 2019 | | NEPHROLOGY [place] | [address] [place] | hypertension | | | | [address] | [address] [place], [place] | (Primary Dx); Iron | | | | [address] | [address] | deficiency; | | | | [place], [place] | | Secondary | | | | [address] | | hyperparathyroidism | | | | [phone] | | (HCC); CKD (chronic | | | | | | kidney disease) | | | | | | stage 5, GFR less | | | | | | than 15 ml/min ([facility]) | +--------+ + + + + [...] 2019 | Office | | [address] [facility] [place] | | | | Visit | | [address] [place], [place] | | | | | | [address] | | | | | | | [...] | | | | | | ml/min ([facility]) | | + +------+--------+ + + [...] hyperparathyroidism | | | | | | ([facility]) CKD (chronic | | | | | | kidney disease) | | | | | | stage 5, GFR less | | | | | | than 15 ml/min ([facility]) | | + +------+--------+ + + [...]
--- OUTSIDE RECORDS SUMMARY | ~2020-08-16 | XMS | Encounter Summary ---
Demographics + + + | Address | [address] | | | [place] [address] | + + + | Home Phone [...] Team Providers + +------+ + | Care Stationary Engineer Apprentice Name | Role | Phone | + +------+ + | Rahul Silva MD | PCP | | + +------+ + Encounter Details +--------+ + + + + | Date | Type | Department | Care Team | Description | +--------+ + + + + | 08/31/ | Orders Only | [facility] | Farrukh Acuna MD | | | 2013 | | NEPHROLOGY [place] | [address] [place] | | | | | [address] [place] | [address] [place], [place] | | | | | [address] [place], [place] | [address] | | | | | [address] | | | | | | [phone] | | | +--------+ + + + [...] | Office | | [address] [facility] | | | | Visit | | [facility] | | | | | | [address] | | | | | | | [...] | | | LAB | | | Ethiopian | | | | | + + [...]
--- OUTSIDE RECORDS SUMMARY | ~2020-08-16 | XMS | Encounter Summary ---
Demographics + + + | Address | [address] | | | [place] [address] | + + + | Home Phone [...] Team Providers + +------+ + | Care Garage Supervisor Name | Role | Phone | [...] E | | | | | | ([facility]) | [place] | | | | | | Procedures | [address] | | | | | | VAS Arm | Phone: | | | | | | Bilateral | [phone] | | | | | | Mapping For | Fax: | | | | | | Dialysis | [phone] | | +--------+--------+ + + + + Reason for Visit Diagnostic/Screening (Routine) +--------+--------+ + + + + [...] E | | | | | | ([facility]) | [place] | | | | | | Procedures | [address] | | | | | | VAS Arm | Phone: | | | | | | Bilateral | [phone] | | | | | | Mapping For | Fax: | | | | | | Dialysis | [phone] | | +--------+--------+ + + + + Encounter Details +--------+ + + + + | Date | Type | Department | Care Team | Description | +--------+ + + + + | 08/20/ | Hospital | [facility] | Trisha Conner DNP | 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 | VASCULAR SURGERY | [address] | renal disease) ([facility]) | | | | ULTRASOUND [address] | [address] [place], [place] | | | | | [address] | [address] | | | | | [place], [place] | | | | | | [address] | | | | | | [phone] | | | +--------+ + + + [...] capsule by | 90 | 3 | 08/18/ | | | (ROCALTROL) 0.25 mcg | mouth Daily. | capsule | | 19 | | | capsuleIndications: | | | | | | | Stage 5 chronic | | | | | | | kidney disease not | | | | | | | on chronic dialysis | | | | | | | ([facility]), Secondary | | | | | | | hyperparathyroidism | | | | | | | ([facility]) | | | | | [...] 2020 | Office | | [address] [facility] | | | | Visit | | [address] [place] [place] | | | | | | [address] | | | | | | | [...]
--- OUTSIDE RECORDS SUMMARY | ~2020-08-16 | XMS | Encounter Summary ---
Demographics + + + | Address | [address] | | | [place] [address] | + + + | Home Phone [...] Team Providers + +------+ + | Care Specialty Foods Cook Name | Role | Phone | + +------+ + | Rahul Silva MD | PCP | | + +------+ + Encounter Details +--------+ + + + + | Date | Type | Department | Care Team | Description | +--------+ + + + + | 08/19/ | Orders Only | [facility] | Conversion | | | 2017 | | NEPHROLOGY CONNIE | Transaction, | | | | | [address] | Provider Unknown | | | | | [address] [place] | | | | | | [address] | (Fax) | | | | | [phone] | | | +--------+ + + + [...] | | | Visit | | [facility] | | | | | | [address] | | | | | | | [...] | | | LAB | | | [place] | | | | | + + [...]
--- OUTSIDE RECORDS SUMMARY | ~2020-08-16 | XMS | Encounter Summary ---
Demographics + + + | Address | [address] | | | [place] [address] | + + + | Home Phone [...] Team Providers + +------+ + | Care Yardage Control Clerk Name | Role | Phone [...] | | [address] [place] | [place] [address] | | | | | [place] [address] | | | | | | [phone] | | | +--------+ + + + [...] 2019 | Office | | [address] [facility] | | | | Visit | | [address] [place] | | | | | | [address] | | | | | | | [...]
--- OUTSIDE RECORDS SUMMARY | ~2020-08-16 | XMS | Encounter Summary ---
Demographics + + + | Address | [address] | | | [place] [address] | + + + | Home Phone [...] Team Providers + +------+ + | Care Representative Government Relations Name | Role | Phone | + [...] | | | hip | [address] | | | | | | fracture, | [place] | | | | | | initial | [place], [place] | | | | | | encounter | [address] | | | | | | ([facility]) | Phone: | | | | | | Status post | [phone] | | | | | | above knee | Fax: | | | | | | amputation | [phone] | | | | | | of [...] | | | | | | | ([facility]) | | | | | | | | | | | | | | | | | +--------+--------+ + + + + Encounter Details +--------+ + + + + | Date | Type | Department | Care Team | Description | +--------+ + + + + | 08/03/ | Hospital | [facility] | Jose Andrade | Laceration of left | | 2016 - | Encounter | MED CTR SURGICAL | MD Mehrdad [address] | ear, initial | | | | [address] [place] | [address] [place] | encounter (Primary | | 08/05/ | | [place] [address] | [place] [address] | Dx); Closed left hip | | 2015 | | [phone] | [phone] | fracture, initial | | | | | | encounter ([facility]); | | | | | Linda Steiner, | Fall, initial | | | | | DO [address] | encounter; Acute | | | | | [address] [place], | pain; Hyperkalemia; | | | | | [place] [address] | CKD (chronic kidney | | | | | [phone] | disease), | | | | | [...] | | | | | | type ([facility]); Insulin | | | | | | dependent type 2 | | | | | | diabetes mellitus, | | | | | | uncontrolled (HCC); | | | | | | Intertrochanteric | | | | | | fracture of left | | | | | | hip, closed, initial | | | | | | encounter ([facility]); | | | | | | PAOLO on CPAP; Status | | | | | | post fall; Status | | | | | | 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 | | | | | | lower extremity | | | | | | ([facility]); Phantom limb | | | | | | pain ([facility]) | +--------+ [...] Bolivar MD - 08/05/2016 1:07 PM PDT [facility] DISCHARGE SUMMARY Pt. Name/Age/: Porfirio Zavala [...] mg by mouth nightly. aka: LIPITOR Cholecalciferol 43269 units Caps Take 50,000 Units by mouth [...] information: [address] [place] [id number] PENDING RESULTS: HOSPITAL COURSE: Please refer to [...] signed by: Petey Bolivar MD, 08/05/2016 13:07 [facility] Portions of this chart may have been created with [place] Direct Auto voice recognition software. Occasi onal wrong-word or sound-alike substitutions may have occurred due to the inherent vanegas itations of voice recognition software. Please read the chart carefully and recognize, using context, where these substitutions have occurred documented in this encounter Discharge Instructions Instructions Maritza Devries RN - 08/05/2016Please call Dr. Tobar at [phone] for an y questions or concerns regarding [...] 0 | | | | (VITAMIN D-3) [address] | mouth Every 3 | | | [...] might be differ ent from the original. [facility] Hospitalist Progress Note Porfirio Zavala is [...] Clear Clear PH UA 5.0 5.0-8.0 Specific [place] 1.015 1.001-1.030 PROTEIN UA 100 mg/dL (A) [...] as outlined above. Sonu Michel 08/04/2016 11:[address] [facility] Yuriy Farrell RRT - 08/04/2016 [...] might be different f rom the original. [facility] HISTORY & PHYSICAL Patient: Porfirio Zavala : 1940: Age: 76 y.o. MedRec: [id number] PCP: Hardik Coyne MD Admission date: 08/03/2016 [...] phantom pain who was transferred here from [facility] emergency room with above presentation. Patient was accepted for transfer by Dr. Mondragon of ENT and Dr. Robison of orthopedic surgery as patient's daughter requested high level of care for plastic surgery consultation and repair of his left ear. 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 Workup on blood work at [facility] showed mildly elevated potassium at 5.4, but [...] Charlotte Zavala, her contact numbers are: (h) [phone] & (c) [phone] ALLERGIES: No Known Allergies VITAL SIGNS: Temp: [...] CKTOTAL No results for input(s): PHART, PO2ART, TVZ4TWO, HUV6ULK, BEART, U1LQHNPO in the last 168 h ours. No results for input(s): SPECSOURCE, PHPOCB, HCO3, TCO2, BEART, BE, ZMJF1EOE in the last 16 8 hours. Invalid input(s): RUBQW6EI, TMGG3AV (dot meylab) Xray Results: No results found. I reviewed imaging done at [facility]: CXR showed no acute disease. CT pelvis [...] EKG Results (I reviewed EKGs) 1st at [facility]: Sinus bradycardia, rate 59 bpm, otherwi se normal EKG. 2nd at [place]: Normal sinus rhythm, rate 78 bpm, otherwise [...] signed by: Linda Steiner DO 08/03/2016 23:57 [facility] Dot phrase reference: VSHOSP (VS in table, last 24 hours) MEYLAB (various labs to pull in) DT (date and time) LABRCNTIP[K:3,Na:3 (last 3 sets of labs using potassium and sodium as examples) HGB HCT PLT INR GLU POCGLU Na K BUN CREA, CALCIUM TROPONINI BNP DIGOXIN Portions of this chart may have been created with [place] Direct Auto voice recognition software. Occasi onal wrong-word or sound-alike substitutions may have occurred due to the inherent vanegas itations of voice recognition software. Please read the chart carefully and recognize, using context, where these substitutions have occurred documented in this encounter Consult Notes Adonay Robison MD - 08/04/2016 10:15 AM PDT [place] [address] CONSULTATION ADONAY ROBISON MD Patient: PORFIRIO ZAVALA Admitting: LINDA STEINER MR #: [id number] LOC: PT TYPE: Adm Date: 08/03/2016 : 1940 DATE OF CONSULTATION AND DATE OF DICTATION: 08/04/2016 IDENTIFICATION: Porfirio Zavala is a 76-year-old male who resides with his daughter in the [facility]. CHIEF COMPLAINT: Fall off wheelchair with left [...] while at home, necessitating transfe r to [facility] in [place] for evaluation. He was found to have a left ear l aceration, a superficial skin tear on the left wrist and on CT scan was noted to have a no ndisplaced unicortical left hip intertrochanteric fracture. He also was found to have an e levated potassium of 5.6 and the decision was made to transfer the patient to [facility] in [place] for a more in depth evaluation and appropriate care, including re pair of the ear by ENT surgeon, Dr. Tobar. Consequently, the patient was transferred to [facility] to [facility] where indeed, Dr. Tobar came and repaired his ear laceration in the emergency room. [facility] and orthopedic consultation was requested. Today, the [...] could be obtained with an orthopedist in [place], or he may c ertainly come back to my office for this followup as well. I will follow the patient with you as needed. ADONAY ROBISON MD Dictated by ADONAY ROBISON MD 08/04/2016 10:15:13 Transcribed on 08/04/2016 10:52:[address] art# [id number] Confirmation #: [id number] cc: HARDIK COYNE MD donay Robison MD [...] might be differe nt from the original. [facility] Emergency Department Encounter Note [address] [place] [address] PCP:Hardik Coyne MD [phone] CHIEF COMPLAINT: Chief Complaint Patient presents with Head Injury Ear Laceration ED Room: ED14/ED14 HPI Porfirio Zavala is a 76 y.o. male who presents to the Emergency Department Patient presents as a referral from [facility]. He's been accepted by Dr. tobar of ENT and Dr. Robison of orthopedic surgery. He has a xcnxi-abh-desq amputation and fell out of his wheelchair earlier today. He struck his left hip and left side of his head against the ground. His family requested he be coker sferred to this hospital for plastic surgery consultation and repair of his left ear. I acc epted call from [facility] emergency department they confirmed the story dated imaging he has a left intercurrent trochanteric hip fracture as well as a negative CT scan of the head . He was noted to be mildly hyperkalemic at [facility]. On arrival he complains of left hip [...] were reviewed along with EMS notes and retirement record s if applicable. (See chart for details) Medications and Allergy list reviewed. Nurses note and old records were reviewed The patient was seen and examined, For persistent pain he receives IV narcotic pain medication morphine 3 doses. Imaging from [facility] reviewed no skull fracture or intracranial bleed [...] 2. Closed left hip fracture, initial encounter ([facility]) S72.002A 820.8 3. Fall, initial encounter W19.XXXA E888.9 4. Acute pain R52 338.19 5. Hyperkalemia E87.5 276.7 6. CKD (chronic kidney disease), unspecified stage N18.9 585.9 7. Intractable pain R52 780.96 Administrations This Visit albuterol 2.5 mg/3 mL nebulizer solution 5 mg Admin Date Action Dose Route Administered By 08/03/2016 Given 5 mg Nebulization Agustin Gordon, [employer]REL [employer]TER bacitracin topical ointment Admin Date Action Dose [...] Given 4 mg Intravenous Jose Calhoun RN hlywbne-eklgycxnls-fkjdpuwvi pertussis (ADACEL, Tdap) vaccine injection 0.5 mL [...] i nstructions. lan of [place] Brie Bauer, [employer] - 08/05/2016 12:55 PM PDTProblem: Patient Care [...] clear and diminished. Anticipate discharge. 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 Transfers Bed-Chair, Level of [place]: contact guard assist Chair-Bed, Level of [place]: contact guard assist Cwb-Ffhjv-Stm, Assistive Device: none Impairments: strength decreased, impaired balance, pain Bed Mobility Supine to Sit, Level of [place]: independent Sit to Supine, Level of [place]: independent Wheelchair Mobility Pt able to demo safe and independent ability to self propel manual wheelchair in room and hallway. ROM B UEs and R LE grossly WFL; L LE not tested due to recent fracture. Strength B UEs and R LE grossly WFL; L LE not tested due to recent fracture. STG GOALS [place] Level: minimum assist (75% patient effort) Assistive Device: none Time to Achieve: 2 days Goal Status: met Transfer Training Goal, Activity Type: bed to chair /chair to bed [place] Level: minimum assist (75% patient effort) Assistive [...] S72.002A Closed left hip fracture, initial encounter ([facility]) W19.XXXA Fall, initial encounter R52 Acute pain E87.5 Hyperkalemia N18.9 CKD (chronic kidney disease), unspecified stage R52 Intractable pain E87.5 Acute hyperkalemia N18.3 Chronic kidney disease (CKD), stage 3 (moderate) J44.9 Chronic obstructive pulmonary disease, unspecified COPD type ([facility]) E11.65, Z79.4 Insulin dependent type 2 diabetes mellitus, uncontrolled ([facility]) S72.142A Intertrochanteric fracture of left hip, closed, initial encounter ([facility]) G47.33 PAOLO on CPAP Z91.89 Status post fall Z89.612 Status post above knee amputation of left lower extremity ([facility]) G54.7 Phantom limb pain ([facility]) Date of Onset: Past Medical History Diagnosis Date PAOLO (obstructive sleep apnea) On CPAP plus 4 L of oxygen at night COPD (chronic obstructive pulmonary disease) ([facility]) Diabetes mellitus, type II ([facility]) Constipation Epigastric pain Stump pain ([facility]) Renal insufficiency Obesity Iron deficiency anemia Hypertension Dyslipidemia Lower extremity embolism ([facility]) Phantom pain following amputation of lower limb ([facility]) Pain of amputation stump of left lower extremity ([facility]) Past Surgical History Procedure Laterality [...] phantom pain who was transferred here from [facility] emergency room d/t ear laceration that needs [...] Porfirio Zavala 3 times/wk until discharge from [facility] or discharged from the hospital. [...] to f/u with Jonas next Friday in [place] to have sutures mello alexus. Skin tear/wound [...] S72.002A Closed left hip fracture, initial encounter ([facility]) W19.XXXA Fall, initial encounter R52 Acute pain E87.5 Hyperkalemia N18.9 CKD (chronic kidney disease), unspecified stage R52 Intractable pain E87.5 Acute hyperkalemia N18.3 Chronic kidney disease (CKD), stage 3 (moderate) J44.9 Chronic obstructive pulmonary disease, unspecified COPD type ([facility]) E11.65, Z79.4 Insulin dependent type 2 diabetes mellitus, uncontrolled ([facility]) S72.142A Intertrochanteric fracture of left hip, closed, initial encounter ([facility]) G47.33 PAOLO on CPAP Z91.89 Status post fall Z89.612 Status post above knee amputation of left lower extremity ([facility]) G54.7 Phantom limb pain ([facility]) Date of Onset: Past Medical History Diagnosis Date PAOLO (obstructive sleep apnea) On CPAP plus 4 L of oxygen at night COPD (chronic obstructive pulmonary disease) ([facility]) Diabetes mellitus, type II ([facility]) Constipation Epigastric pain Stump pain (HCC) Renal [...] phantom pain who was transferred here from [facility] emergency room d/t ea r laceration that [...] from multiple contributors. Transfers Bed-Chair, Level of [place]: minimum assist (75% patient effort), verbal cues required Chair-Bed, Level of [place]: minimum assist (75% patient effort), verbal cues required Twg-Zqhec-Vgh, Assistive Device: none Impairments: strength decreased, impaired balance, pain ROM B UEs and R LE grossly WFL; L LE not tested due to recent fracture. Strength B UEs and R LE grossly WFL; L LE not tested due to recent fracture. STG GOALS [place] Level: minimum assist (75% patient effort) Assistive Device: none Time to Achieve: 2 days Goal Status: new Transfer Training Goal, Activity Type: bed to chair /chair to bed [place] Level: minimum assist (75% patient effort) Assistive [...] PT eval completed. Case d/w RN and bilingual patient support caseworker. Contacted wheelchair r ep (Petey) who says [...] safe manner Outcome: Unchanged Patient lives in [place], [place] with his daughter Charlotte. Charlotte states [...] This CM called [facility] in [place] and gave production supply equipment tender , Argenis, the story about this patient. 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 She states that if a manual w/c canno t be obtained, she will get one Friday at [facility] [place] and "I will just be with him [...] face sheet to be fa xed to [phone]. Faxed face sheet. Electronically signed by: POLI [...] be removed on 08/12 phylicia Muhammad in [place]. Pt is alert and oriented, forgetful at [...] Tobar MD - 08/03/2016 10:51 PM PDT [address] [address] OPERATIVE REPORT STEVEN TOBAR MD Patient: PORFIRIO ZAVALA Admitting: LINDA Salgado OBDULIA MR #: [id number] LOC: PT TYPE: Adm Date: 08/03/2016 : [...] also hurt the left hip, and in [place] the laceration was felt to be too complex to repair in the emergency room by the emergency room physician . Also, the patient with complaint of the left hip was noted to have an intertrochanteric fracture, but nondisplaced. The patient was accepted at [facility] fo r repair of the laceration [...] the laceration, p art of it being hppqqer-fml-hjkqvfn the root of the ear, was 5.5 [...] his could be carried out down in [place] with Dr. Muhammad to save a long trip up to this area a week from Friday when they should be removed. They can call our office and arrange ments will be made for removal of the sutures if not able to do it down in the [facility]. The estimated blood loss from the current part was around 1-2 mL. The prognosis of th is area immediate and remote is good. STEVEN TOBAR MD Dictated by STEVEN TOBAR MD 08/03/2016 22:51:04 Transcribed on 08/04/2016 05:51:45 by blessing job# [id number] Confirmation #: [id number] cc: HARDIK COYNE MD D Triage Notes - Jose Calhoun RN - 08/03/2016 8:05 PM PDTPatient transferred [facility] [place] for and ear laceration that needs to [...] | Office | | [address] [facility] | | | | Visit | | [address] [place], [place] | | | | | | [id number] | | | | | | | [...] until | | | | | encounter ([facility]) | 08/04/2016 | | | [...] | | | | | | encounter ([facility]) | | | | | [...] [address] | [place] | [phone] | | [facility] | | [address] | | | - LABORATORY | | [...] mL/min/1.73m2 | [facility] | | | [place] | RATE,ESTIMATED | | MEDICAL | | | | mL/min/1.15p1Wgrf than | | CENTER - | | [...] [address] | [place] | [phone] | | [facility] | | [address] | | | - LABORATORY | | [...] ST. | [address] | [place], [place] | [phone] | | [facility] | | [address] | | | - LABORATORY | | [...] [address] | [place] | [phone] | | [facility] | | [address] | | | - LABORATORY | | [...] + | [facility] | [address] | [place] | [phone] | | [facility] | | [address] | | | - LABORATORY | | [...] [address] | [place] | [phone] | | [facility] | | [address] | | | - LABORATORY | | [...] [address] | [place] | [phone] | | [facility] | | [address] | | | - LABORATORY | | [...] + | [facility] | [address] | [place] | [phone] | | [facility] | | [address] | | | - LABORATORY | | [...] [address] | [place] | [phone] | | [facility] | | [address] | | | - LABORATORY | | [...] + | [facility] | [address] | [place] | [phone] | | [facility] | | [address] | | | - LABORATORY | | [...] + | [facility] | [address] | [place], [place] | [phone] | | [facility] | | [address] | | | - LABORATORY | | [...] | mL/min/1.73m2 | [facility] | | | [place] | RATE,ESTIMATED | | MEDICAL | | | | mL/min/1.02f8Hqvk than | | CENTER - | | [...] [address] | [place] | [phone] | | [facility] | | [address] | | | - LABORATORY | | [...] - 1.030 | [facility] | | | [place], | | | [facility] | | [...] [address] | [place] | [phone] | | [facility] | | [address] | | | - LABORATORY | | [...] | | | | AYAH RON MD ([id number]) | | | | | | on [...] + | [facility] | [address] | [place] | [phone] | | [facility] | | [address] | | | - LABORATORY | | [...] [address] | [place] | [phone] | | [facility] | | [address] | | | - LABORATORY | | [...] [address] | [place] | [phone] | | [facility] | | [address] | | | - LABORATORY | | [...] | | Lavender | | | [facility] | | | [employer] | | [...] + | [facility] | [address] | [place] | [phone] | | [facility] | | [address] | | | - LABORATORY | | [...] [address] | [place] | [phone] | | [facility] | | [address] | | | - LABORATORY | | [...] non- | GLOMERULAR FILTRATION | mL/min/1.73m2 | [facility] | | | [place] | RATE,ESTIMATED | | MEDICAL | | | | mL/min/1.17g4Vadb than | | CENTER - | | [...] + | [facility] | [address] | [place] | [phone] | | [facility] | | [address] | | | - LABORATORY | | [...] | | | | | | | 6797-1695 Use NIGHT DOSE for | | | | | | | doses scheduled: HS, 3AM, | | | | | | | Nighttime 0194-1999, | | | | | | + [...] | +---+---+ + +-------+ +---------+---+ + | jhfudbe-oeyxcvbxln-cwnyvoana | Given | 08/03/20 | 0.5 mLs [...]
--- OUTSIDE RECORDS SUMMARY | ~2020-08-16 | XMS | Encounter Summary ---
Demographics + + + | Address | [address] | | [place] [address] | + + + | Home Phone [...] [place] | | | | | [address] | | + + + + + Care Team Providers + +------+ + | Care Bridge Operator Name | Role | Phone | + +------+ + PCP | Unavailable | + +------+ + Encounter Details +--------+ + + + + | Date | Type | Department | Care Team | Description | +--------+ + + + + | 02/26/ | Results | | Other, Faculty | | | 1993 | Only | | [phone] | | +--------+ + + + + [...] | | + +---------+ + + | [facility] DEPARTMENT OF | | | | | RADIOLOGY | | | | + +---------+ + + documented in this encounter Visit Diagnoses Not on filedocumented in this encounter"
--- OUTSIDE RECORDS SUMMARY | ~2020-08-16 | XMS | Encounter Summary ---
Demographics + + + | Address | [address] | | | [place] [address] | + + + | Home Phone [...] Team Providers + +------+ + | Care Tax Accounting Assistant Name | Role | Phone | + +------+ + | Rahul Silva MD | PCP | | + +------+ + Encounter Details +--------+ + + + + | Date | Type | Department | Care Team | Description | +--------+ + + + + | 10/03/ | Orders Only | [facility] | Conversion | | | 2015 | | [facility]ARL[facility]BS[facility] | Transaction, | | | | | [address] | Provider Unknown | | | | | [address] [place], [place] | [phone] | | | | | [address] | (Fax) | | | | | [phone] | | | +--------+ + + + [...] [place] | | | | | | [address] | | | | | | | [...]
--- OUTSIDE RECORDS SUMMARY | ~2020-08-16 | XMS | Encounter Summary ---
Demographics + + + | Address | [address] | | | [place] [address] | + + + | Home Phone [...] Team Providers + +------+ + | Care Mountain Bike Guide Name | Role | Phone | [...] [address] | | | | | [place], [place] | [place], [place] | | | | | [address] | [address] | | | | | [phone] | | | | | | | [...] Office | | [address] [facility] | | | | Visit | | [address] | | | | | | [address] | | | | | | | [...]
--- OUTSIDE RECORDS SUMMARY | ~2020-08-16 | XMS | Encounter Summary ---
Demographics + + + | Address | [address] | | | [place] [address] | + + + | Home Phone | | + + + | Preferred Language | Unknown | + + + | Marital Status | Single | + + + | Yazidi Affiliation | PRO | + + + | Race | White | + + + | Ethnic Group | Not or | + + + Author + + + | Author | [facility] | + + + | Organization | [facility] | + + + | Address | Unknown | + + + | Phone | Unavailable | + + + Support + + + + + | Name | Relationship | Address | Phone | + + + + + | Darci Andujar | VALERIE | [place] | | | | | [address] | | + + + + + Care Team Providers + +------+ + | Care Infrastructure Analyst Name | Role | Phone | [...] as of this encounter Progress Notes Interface, Or First Assist Registered Nurse In - 11/10/2006 2:27 AM PSTCLINIC DATE: [...] he embarked on this. Galo Arora M.D. [place], Plastic and Reconstructive Surgery / [id number] / [id number] / 700 cc: Nelson Melara M.D. Anesthesiology. [facility]. [id number] signed by Interface, Or First Assist Registered Nurse In at 11/10/2006 2:27 AM PSTdocume nted in this encounter Plan of Treatment Not on filedocumented as of this encounter Visit Diagnoses Not on filedocumented in this encounter"
--- OUTSIDE RECORDS SUMMARY | ~2020-08-16 | XMS | Encounter Summary ---
Demographics + + + | Address | [address] | | | [place] [address] | + + + | Home Phone [...] Team Providers + +------+ + | Care Mainframe Consultant Name | Role | Phone | + +------+ + | Rahul Silva MD | PCP | | + +------+ + Encounter Details +--------+ + + + + | Date | Type | Department | Care Team | Description | +--------+ + + + + | 09/07/ | Orders Only | [facility] | Farrukh Acuna MD | | | 2018 | | NEPRHOLOGY [place] | [address] [facility] [address] | | | | | [address] | [address] [place], [place] | | | | | [address] [place], [place] | [address] | | | | | [address] | | | | | | [phone] | | | +--------+ + + + [...] 2020 | Office | | [address] [facility] | | | | Visit | | [address] [place], [place] | | | | | | [address] | | | | | | | | +--------+ + + + + documented as of this encounter Procedures + +--------+ + + + | Procedure Name | Priori | Date/Time | Associated Diagnosis | Comments | | | ty | | | | + +--------+ + + + | BASIC METABOLIC | Routin | 09/07/2018 | | Results for this | | PANEL | e | 12:00 AM | | procedure are in the | | | | PDT | | results section. | + +--------+ + + + documented in this encounter Results Basic Metabolic Panel (09/07/2018 12:00 AM PDT) + + + + + + | Component | Value | Ref Range | Performed | Pathologist | | | | | At | Signature | + + + + + + | Glucose, | 192 (A) | 70 - 100 mg/dL | EXTERNAL | | | Fasting | | | LAB | | + + + + + + | BUN | 40 (A) | 6 - 23 mg/dL | EXTERNAL | | | | | | LAB | | + + + + + + | Creatinine | 3.14 (A) | 0.70 - 1.18 | EXTERNAL | | | | | mg/dL | LAB | | + + + + + + | BUN/Creatin | 12.7 | 6 - 28.6 | EXTERNAL | | | ine Ratio | | | LAB | | + + + + + + | Calcium | 8.2 (A) | 8.5 - 10.3 | EXTERNAL [...] + + + | Anion Gap | 18.3 | 7 - 21 mmol/L | EXTERNAL | | | | | | LAB | | + + + + + + | Estimated | 19 | mg/dL | EXTERNAL | | | [...]
--- OUTSIDE RECORDS SUMMARY | ~2020-08-16 | XMS | Encounter Summary ---
Demographics + + + | Address | [address] | | | [place] [address] | + + + | Home Phone [...] Providers + +------+ + | Care Assistant Producer Name | Role | Phone | + +------+ + | Rahul Silva MD | PCP | | + +------+ + Encounter Details +--------+ + + + + | Date | Type | Department | Care Team | Description | +--------+ + + + + | 10/27/ | Orders Only | [facility] | Conversion | | | 2016 | | NEPHROLOGY [place] | Transaction, | | | | | [address] | Provider Unknown | | | | | [address] [place] | | | | | | [address] | (Fax) | | | | | [phone] | | | +--------+ + + + [...] 2019 | Office | | [address] [facility] | | | | Visit | | [address] [facility] | | | | | | [address] | | | | | | | [...]
--- OUTSIDE RECORDS SUMMARY | ~2020-08-16 | XMS | Encounter Summary ---
Demographics + + + | Address | [address] | | | [place] [address] | + + + | Home Phone [...] Author + + + | Author | [facility] | + + + | Organization | [facility] | + + + | Address | Unknown | + + + | Phone | Unavailable | + + + Support + + + + + | Name | Relationship | Address | Phone | + + + + + | Darci Andujar | VALERIE | [place] | | | | | [address] | | + + + + + Care Team Providers + +------+ + | Care Wire Wheeler Name | Role | Phone | + [...] [id number] | | | | | | [place], [place] | | | | | | [address] | | | | | | [phone] | | | +--------+ + + + [...] | + + + + + | [facility] | [address] | [place] [address] | | | PATHOLOGY | [address] [...] | + + + + + | [facility] | [address] | [place] [address] | | | PATHOLOGY | [address] [...] | + + + + + | [facility] | [address] | [place] [address] | | | PATHOLOGY | [address] [...] | + + + + + | [facility] | [address] | [place] [address] | | | PATHOLOGY | [address] | | | + + + + + documented in this encounter Visit Diagnoses Not on filedocumented in this encounter
--- OUTSIDE RECORDS SUMMARY | ~2020-08-16 | XMS | Encounter Summary ---
Demographics + + + | Address | [address] | | | [place] [address] | + + + | Home Phone [...] Providers + +------+ + | Care Furnace Operator Name | Role | Phone | + +------+ + | Rahul Silva MD | PCP | | + +------+ + Encounter Details +--------+ + + + + | Date | Type | Department | Care Team | Description | +--------+ + + + + | 02/12/ | Orders Only | [facility] | Conversion | | | 2018 | | NEPHROLOGY [place] | Transaction, | | | | | [address] | Provider Unknown | | | | | [address] [place] | | | | | | [address] | (Fax) | | | | | [phone] | | | +--------+ + + + [...] | Visit | | [address] [facility] | | | | | | [address] | | | | | | | [...]
--- OUTSIDE RECORDS SUMMARY | ~2020-08-16 | XMS | Encounter Summary ---
Demographics + + + | Address | [address] | | | [place] [address] | + + + | Home Phone [...] + | Author | [facility] | | | and [place] | + + + | Organization | [facility] | | | [...] Providers + +------+ + | Care Media Center Specialist Name | Role | Phone | [...] | [address] | [address] | | | | | [place], [place] | [place], [place] | | | | | [address] | [address] | | | | | [phone] | | | | | | | [...] | | | Visit | | [address] | | | | | | [address] | | | | | | | [...]
--- OUTSIDE RECORDS SUMMARY | ~2020-08-16 | XMS | Encounter Summary ---
Demographics + + + | Address | [address] | | | [place] [address] | + + + | Home Phone [...] Providers + +------+ + | Care Chemical Operations And Training Name | Role | Phone | + +------+ + | Rahul Silva MD | PCP | | + +------+ + Reason for Referral Evaluate & Treat (Routine) +--------+ + + + + + | Status | Reason | Specialty | Diagnoses / | Referred By | Referred To | | | | | Procedures | Contact | Contact | +--------+ + + + + + | Closed | Specialty | Vascular | Diagnoses | [place], | [facility] | | | Services | Surgery | Stage 5 | Farrukh Rubio MD | Surgery | | | Required | | chronic | [address] | [address] | | | | | kidney | [address] | [address] | | | | | disease not | [place], | [place], [place] | | | | | on chronic | [place] [address] | [address] | | | | | dialysis | Phone: | Phone: | | | | | ([facility]) | [phone] | [phone] | | | | | Hypertension | Fax: | Fax: | | | | | , | [phone] | [phone] | | | | | unspecified | | | | | | | type | | | +--------+ + + + + + Encounter Details +--------+ + + + + | Date | Type | Department | Care Team | Description | +--------+ + + + + | 07/28/ | Orders Only | [facility] | Farrukh Acuna MD | Iron deficiency | | 2019 | | NEPHROLOGY [place] | [address] | (Primary Dx); Anemia | | | | [address] | [address] [place], [place] | of chronic kidney | | | | [address] [place], [place] | [address] | failure, stage 5 | | | | [address] | | ([facility]); Stage 5 | | | | [phone] | | chronic kidney | | | | | | disease not on | | | | | | chronic dialysis | | | | | | ([facility]); Secondary | | | | | | hyperparathyroidism | | | | | | ([facility]); Hypertension, | | | | | | unspecified type | +--------+ + + + + Social [...] [facility] | | | | Visit | | [address] [place], [place] | | | | | | [address] | | | | | | | | +--------+ + + + + + +------+--------+ + + | Name | Type | Priori | Associated Diagnoses | Order Schedule | | | | ty | | | + +------+--------+ + + | Basic Metabolic | Lab | Routin | Stage 5 chronic | 3 Occurrences | | Panel | | e | kidney disease not | starting 07/28/2019 | | | | | on chronic dialysis | until 07/28/2020 | | | | | ([facility]) Hypertension, | | | | | | unspecified type | | + +------+--------+ + + | Renal Function Panel | Lab | Routin | Stage 5 chronic | Expected: | | | | e | kidney disease not | 09/27/2019, Expires: | | | | | on chronic dialysis | 07/28/2020 | | | | | (HCC) Hypertension, | | | | | | unspecified type | | + +------+--------+ + + | CBC with Manual | Lab | Routin | Stage 5 chronic | Expected: | | Differential | | e | kidney disease not | 09/27/2019, Expires: | | | | | on chronic dialysis | 07/28/2020 | | | | | ([facility]) Hypertension, | | | | | | unspecified type | | + +------+--------+ + + | Magnesium | Lab | Routin | Stage 5 chronic | Expected: | | | | e | kidney disease not | 09/27/2019, Expires: | | | | | on chronic dialysis | 07/28/2020 | | | | | (HCC) Hypertension, | | | | | | unspecified type | | + +------+--------+ + + | Iron and Iron | Lab | Routin | Iron deficiency | Expected: | | Binding Capacity | | e | Anemia of chronic | 09/27/2019, Expires: | | | | | kidney failure, | 07/28/2020 | | | | | stage 5 (HCC) Stage | | | | | | 5 chronic kidney | | | | | | disease not on | | | | | | chronic dialysis | | | | | | ([facility]) Hypertension, | | | | | | unspecified type | | + +------+--------+ + + | Ferritin | Lab | Routin | Iron deficiency | Expected: | | | | e | Anemia of chronic | 09/27/2019, Expires: | | | | | kidney failure, | 07/28/2020 | | | | | stage 5 (HCC) Stage | | | | | | 5 chronic kidney | | | | | | disease not on | | | | | | chronic dialysis | | | | | | ([facility]) Hypertension, | | | | | | unspecified type | | + +------+--------+ + + | Parathyroid Hormone, | Lab | Routin | Stage 5 chronic | Expected: | | Intact | | e | kidney disease not | 09/27/2019, Expires: | | | | | on chronic dialysis | 07/28/2020 | | | | | ([facility]) Secondary | | | | | | hyperparathyroidism | | | | | | ([facility]) Hypertension, | | | | | | unspecified type | | + +------+--------+ + + + + +--------+ + + | Name | Type | Priori | Associated Diagnoses | Order Schedule | | | | ty | | | + + +--------+ + + | Ambulatory Referral | Outpatient | Routin | Stage 5 chronic | Ordered: 07/28/2019 | | to [facility] | Referral | e | kidney disease not | | | Surgery | | | on chronic dialysis | | | | | | ([facility]) Hypertension, | | | | | | unspecified type | | + + +--------+ + + documented as of this encounter Visit Diagnoses + + | Diagnosis | + + | Iron deficiency - Primary Other disorders of iron metabolism | + + | Anemia of chronic kidney failure, stage 5 (HCC) | + + | Stage 5 chronic kidney disease not on chronic dialysis (HCC) | + + | Secondary hyperparathyroidism (HCC) Secondary hyperparathyroidism (of renal origin) | + + | Hypertension, unspecified type | + + documented in this encounter"
--- OUTSIDE RECORDS SUMMARY | ~2020-08-16 | XMS | Encounter Summary ---
Demographics + + + | Address | [address] | | | [place] [address] | + + + | Home Phone [...] Providers + +------+ + | Care Casino Accountant Name | Role | Phone | + [...] [address] | | | | | [place], [place] | [place], [place] | | | | | [address] | [address] | | | | | [phone] | [phone] | | | | | | | [...] 2020 | Office | | [address] [facility] | | | | Visit | | [address] [place] | | | | | | [address] | | | | | | | [...]
--- OUTSIDE RECORDS SUMMARY | ~2020-08-16 | XMS | Encounter Summary ---
Demographics + + + | Address | [address] | | | [place] [address] | + + + | Home Phone [...] Author + + + | Author | [facility] | + + + | Organization | [facility] | + + + | Address | Unknown | + + + | Phone | Unavailable | + + + Support + + + + + | Name | Relationship | Address | Phone | + + + + + | Darci Andujar | VALERIE | [place] | | | | | [address] | | + + + + + Care Team Providers + +------+ + | Care Attendant [facility] Name | Role | Phone | + [...] Vyas | | | | | | [facility], [address] [place] [address] | | | | | | [place], [place] | | | | | | [address] | | | | | | [phone] | | | +--------+ + + + [...] as of this encounter Discharge Summaries Interface, Assembly Line Inspector In - 02/05/2007 1:03 AM PST [address] [address] [facility] MEDICAL SUMMARY OF HOSPITALIZATION Med Rec No.: [id number] Admission Date: 12/28/96 Name: Kavon Andujar Discharge Date: 01/03/97 STAFF PHYSICIAN: Robert Carlson M.D. Professor, Vascular Surgery PRINCIPAL FINAL DIAGNOSIS: Osteophyte of left hntpx-cpc-fvtg amputation stump. ADDITIONAL DIAGNOSES: Phantom pain. PRINCIPAL PROCEDURE: Revision of left zqiqb-ayr-uuqq amputation stump and excision of left stump osteophyte. 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 Since then he has had pain in the stump. On a computed tomography (CT) scan, it was noted that he had a large bone spur and a cyst in his stump site. HOSPITAL COURSE: The patient was admitted on December 28 and underwent revision of his left hhtqm-qju-yalc amputation stump with excision of his left [...] Normal. 3. DIET: Normal. Nick Noriega M.D. Lens Generating Machine Tender, General Surgery Robert Carlson M.D. Professor, Vascular Surgery DOMINIC/jc A cc: RUBIA KNAPP MD [address] [facility] [id number] documented in this encounter Plan of Treatment Not on filedocumented as of this encounter Visit Diagnoses Not on filedocumented in this encounter"
--- OUTSIDE RECORDS SUMMARY | ~2020-08-16 | XMS | Encounter Summary ---
Demographics + + + | Address | [address] | | | [place] [address] | + + + | Home Phone [...] Team Providers + +------+ + | Care Bun Machine Operator Name | Role | Phone | + +------+ + | Rahul Silva MD | PCP | | + +------+ + Encounter Details +--------+ + + + + | Date | Type | Department | Care Team | Description | +--------+ + + + + | 09/07/ | Orders Only | [facility] | Farrukh Acuna MD | | | 2018 | | NEPRHOLOGY [place] | [address] [facility] [address] | | | | | [address] | [address] [place], [place] | | | | | [address] [place], [place] | [address] | | | | | [address] | | | | | | [phone] | | | +--------+ + + + [...] | Office | | [address] [facility] | | | | Visit | | [address] [place], [place] | | | | | | [address] | | | | | | | [...]
--- OUTSIDE RECORDS SUMMARY | ~2020-08-16 | XMS | Encounter Summary ---
Demographics + + + | Address | [address] | | | [place] [address] | + + + | Home Phone [...] Providers + +------+ + | Care Stone Driller Helper Name | Role | Phone | [...] [address] | | | | | [place], [place] | [place], [place] | | | | | [address] | [address] | | | | | [phone] | | | | | | | [...] | | | Visit | | [address] | | | | | | [address] | | | | | | | [...]
--- OUTSIDE RECORDS SUMMARY | ~2020-08-16 | XMS | Encounter Summary ---
Demographics + + + | Address | [address] | | | [place] [address] | + + + | Home Phone [...] Team Providers + +------+ + | Care Conditioner Tender Name | Role | Phone | + +------+ + | Rahul Silva MD | PCP | | + +------+ + Encounter Details +--------+ + + + + | Date | Type | Department | Care Team | Description | +--------+ + + + + | 07/14/ | Orders Only | [facility] | Conversion | | | 2018 | | [address] [address] | Transaction, | | | | | [address] | Provider Unknown | | | | | [address] [place], [place] | [phone] | | | | | [address] | (Fax) | | | | | [phone] | | | +--------+ + + + [...] 2019 | Office | | [address] [facility] | | | | Visit | | [address] [place] | | | | | | [address] | | | | | | | [...]
--- OUTSIDE RECORDS SUMMARY | ~2020-08-16 | XMS | Encounter Summary ---
Demographics + + + | Address | [address] | | | [place] [address] | + + + | Home Phone [...] Team Providers + +------+ + | Care Chaser Tar Name | Role | Phone | + +------+ + | Rahul Silva MD | PCP | | + +------+ + Encounter Details +--------+ + + + + | Date | Type | Department | Care Team | Description | +--------+ + + + + | 09/01/ | Orders Only | [facility] | Farrukh Acuna MD | | | 2013 | | NEPHROLOGY [place] | [address] [place] | | | | | [address] | [address] [place], [place] | | | | | [address] [place], [place] | [address] | | | | | [address] | | | | | | [phone] | | | +--------+ + + + [...] 2019 | Office | | [address] [facility] | | | | Visit | | [address] [facility] | | | | | | [address] | | | | | | | [...] + + + + | Non- | 3.82 (A) | 4.3 - 5.7 [...] | | | LAB | | | Citizen Of [place] | | | | | + + [...]
--- OUTSIDE RECORDS SUMMARY | ~2020-08-16 | XMS | Encounter Summary ---
Demographics + + + | Address | [address] | | | [place] [address] | + + + | Home Phone [...] + | 10/08/ | Orders Only | [facility] | Farrukh Acuna MD | | | 2018 | | NEPHROLOGY [place] | [address] | | | | | [address] [place] | [address] [place], [place] | | | | | [address] [place], [place] | [address] | | | | | [address] | | | | | | [phone] | | | +--------+ + + + [...] 2020 | Office | | [address] [facility] | | | | Visit | | [address] [place], [place] | | | | | | [address] | | | | | | | [...] | | | LAB | | | [place] | | | | | + + [...]
--- OUTSIDE RECORDS SUMMARY | ~2020-08-16 | XMS | Encounter Summary ---
Demographics + + + | Address | [address] | | | [place] [address] | + + + | Home Phone [...] Team Providers + +------+ + | Care Care Professional Name | Role | Phone | [...] + + | 03/14/ | Refill | [facility] | Farrukh Acuna MD | Medication Refill | | 2019 | | NEPHROLOGY [place] | [address] [place] | | | | | [address] | [address] [place], [place] | | | | | [address] | [address] | | | | | [place], [place] | | | | | | [address] | | | | | | [phone] | | | +--------+--------+ + + + [...] - 03/16/2020 11:05 AM PDTReceived [facility] [place] [facility] Torsemide. Torsemide prescription sent on 03/14 . Called [facility] to confirm they received electronic prescription. They received prescriptio n but were unable to fill it as it is too soon to fill. Their records show it was filled on 03/14. Appears that prescription was sent to both [facility] and [facility]. Called patient's daughter, Charlotte, and she reports they did pick pack worker prescription for Torsem luly at [facility] pharmacy. His primary pharmacy is [facility] and he was only getting the Torse mide at [facility] because [facility] was out of Torsemide. She asked that [facility] pharmacy be re moved from preferred pharmacy list. No further questions at this time. documented in this encounter Plan of Treatment +--------+ + + + + | Date | Type | Specialty | Care Team | Description | +--------+ + + + + | 10/30/ | Virtual | Nephrology | Farrukh Acuna MD | | 2019 | Office | | [address] [facility] | | | | Visit | | [address] [place], [place] | | | | | | [address] | | | | | | | [...]
--- OUTSIDE RECORDS SUMMARY | ~2020-08-16 | XMS | Encounter Summary ---
Demographics + + + | Address | [address] | | | [place] [address] | + + + | Home Phone [...] Team Providers + +------+ + | Care Solution Designer Name | Role | Phone | [...] [address] | | | | | [place], [place] | [place], [place] | | | | | [address] | [address] | | | | | [phone] | [phone] | | | | | | | [...] 2020 | Office | | [address] [facility] | | | | Visit | | [address] [place] | | | | | | [address] | | | | | | | [...]
--- OUTSIDE RECORDS SUMMARY | ~2020-08-16 | XMS | Encounter Summary ---
Demographics + + + | Address | [address] | | | [place] [address] | + + + | Home Phone [...] Team Providers + +------+ + | Care Inserting Machine Operator Name | Role | Phone [...] | | | stage 5, GFR | [address] | | | | | | less than | Phone: | | | | | | 15 ml/min | [phone] | | | | | | (HCC) | Fax: | | | | | | Procedures | [phone] | | | | | | VAS [...] + + | 10/20/ | Office | [facility] | Trisha Conner, MERY | CKD (chronic kidney | | 2019 | Visit | VASCULAR SURGERY | [address] | disease) stage 5, | | | | [address] | [place], [place] | GFR less than 15 | | | | [place], [place] | [address] | ml/min (HCC) | | | | [address] | | (Primary Dx); AVF | | | | [phone] | | (arteriovenous | | | | [...] Trisha Conner DNP - 10/20/2019 2:30 PM [facility] [address] [address] Office: [phone] DATE OF VISIT: 10/20/2019 PATIENT NAME: Kavon Andujar : 1940; AGE: 79 y.o.; Sex:M PHONE NUMBER: ; ; PROVIDER: Trisha Conner DNP PRIMARY CARE / REFERRING PHYSICIAN: No ref. provider found / Rahul Silva MD / [address] [facility] [address] / [place] [address] REASON FOR EVALUATION / CHIEF COMPLAINT: Vascular Surgery Postoperative Visit for AVF creation The patient presents today for a Vascular Surgery Postoperative Visit. The patient is statu s post right brachiocephalic AVF creation, which was performed on 09/10/2019 at the [facility] Operating Room. The patient is not having any pain. The patient denie s fever, wound drainage, increasing redness, pus, increasing pain, increasing swelling. Phys ical examination revealed surgical incision is healed. He has good thrills over the AVF site . Patient's deputy commissioner is Dr. Acuna. The patient is not [...] in this encounte r Plan of Treatment +--------+ + + + + | Date | Type | Specialty | Care Team | Description | +--------+ + + + + | 10/30/ | Virtual | Nephrology | Farrukh Acuna MD | | | 2019 | Office | | [address] [facility] | | | | Visit | | [address] [place], [place] | | | | | | [address] | | | | | | | [...] + + | Performing | Address | City/State/[facility] | Phone Number | | Organization | | | | + +---------+ + + | [facility] | | | | + +---------+ + + documented in this encounter Visit Diagnoses + + | Diagnosis | + + | CKD (chronic kidney disease) stage 5, GFR less than 15 ml/min ([facility]) - Primary Chronic | | kidney disease, Stage V | + + | AVF (arteriovenous fistula) ([facility]) Arteriovenous fistula, acquired | + + documented in this encounter"
--- OUTSIDE RECORDS SUMMARY | ~2020-08-16 | XMS | Encounter Summary ---
Demographics + + + | Address | [address] | | | [place] [address] | + + + | Home Phone [...] Providers + +------+ + | Care Transition Specialist Name | Role | Phone | [...] [address] | | | | | [place], [place] | [place], [place] | | | | | [address] | [address] | | | | | [phone] | [phone] | | | | | | | [...] | | | Visit | | [address] [place] | | | | | | [address] | | | | | | | [...]
--- OUTSIDE RECORDS SUMMARY | ~2020-08-16 | XMS | Encounter Summary ---
Demographics + + + | Address | [address] | | | [place] [address] | + + + | Home Phone [...] Team Providers + +------+ + | Care Automobile Upholstery Trim Installer Name | Role | Phone | + +------+ + | Rahul Silva MD | PCP | | + +------+ + Reason for Visit + +--------+ + | Reason | Onset | Comments | | | Date | | + +--------+ + | Medication Refill | 08/18/ | | | | 2019 | | + +--------+ + Encounter Details +--------+--------+ + + + | Date | Type | Department | Care Team | Description | +--------+--------+ + + + | 08/18/ | Refill | [facility] | Sandy Capellan | Medication Refill | | 2019 | | NEPRHOLOGY PAIGE Valadez RN | | | | | [address] | | | | | | [address] [place] | | | | | | [address] | | | | | | [phone] | | | +--------+--------+ + + + [...] Telephone Encounter - Sandy Capellan RN - 08/18/2019 3:51 PM PDTReceived message from patient's daughter, Charlotte, reporting she spoke with someone in our office requesting a ref ill for Calcitriol and Kavon will be out of medication tomorrow. She reports she has contac cassi [facility] and they have sent multiple requests to our office. Called [facility] as we have not received any requests for Calcitriol. They manually faxed re quest to the [place] office now and fax has been received. Spoke with the pharmacy resident and provided updated location/fax numbers for our [facility], and [place] office. They had a file for Dr Acuna with 4 locations in [place], 2 locations in [place], [facility], and [place]. They report they had faxed request to our office multiple times b ut could not provide the fax number that they were sending the request to. Refill request ro uted to provider. d ocumented in this encounter Plan of Treatment +--------+ + + + + | Date | Type | Specialty | Care Team | Description | +--------+ + + + + | 10/30/ | Virtual | Nephrology | Farrukh Acuna MD | | | 2019 | Office | | [address] [facility] | | | | Visit | | [address] [place], [place] | | | | | | [address] | | | | | | | [...]
--- OUTSIDE RECORDS SUMMARY | ~2020-08-16 | XMS | Encounter Summary ---
Demographics + + + | Address | [address] | | | [place] [address] | + + + | Home Phone [...] Team Providers + +------+ + | Care Land Appraiser Name | Role | Phone | + +------+ + | Rahul Silva MD | PCP | | + +------+ + Encounter Details +--------+ + + + + | Date | Type | Department | Care Team | Description | +--------+ + + + + | 06/15/ | Orders Only | [facility] | Conversion | | | 2019 | | NEPHROLOGY [place] | Transaction, | | | | | [address] | Provider Unknown | | | | | [address] [place] | | | | | | [address] | (Fax) | | | | | [phone] | | | +--------+ + + + [...] 2020 | Office | | [address] [facility] | | | | Visit | | [address] [place], [place] | | | | | | [address] | | | | | | | [...]
--- OUTSIDE RECORDS SUMMARY | ~2020-08-16 | XMS | Encounter Summary ---
Demographics + + + | Address | [address] | | | [place] [address] | + + + | Home Phone [...] Team Providers + +------+ + | Care Professional Wrestler Name | Role | Phone | + [...] + + | 01/30/ | Documentati | [facility] | Simon, | Results (01/25/20) | | 2020 | on | NEPHROLOGY [place] | [facility] | | | | | [address] [place] | Organizational Consultant | | | | | [address] [place], [place] | | | | | | [address] | | | | | | [phone] | | | +--------+ + + + [...] | 10/30/ | Virtual | Nephrology | Farurkh Acuna MD | | | 2019 | Office | | [address] [facility] | | | | Visit | | [address] [place] | | | | | | [address] | | | | | | | [...]
--- OUTSIDE RECORDS SUMMARY | ~2020-08-16 | XMS | Encounter Summary ---
Demographics + + + | Address | [address] | | | [place] [address] | + + + | Home Phone [...] Team Providers + +------+ + | Care Charge Account Clerk Name | Role | Phone | [...] | | | [address] | [place] [address] | | | | | [place] [address] | | | | | | [phone] | | | +--------+ + + + [...] | Office | | [address] [facility] [address] | | | | Visit | | [address] [place] | | | | | | [address] | | | | | | | [...]
--- OUTSIDE RECORDS SUMMARY | ~2020-08-16 | XMS | Encounter Summary ---
Demographics + + + | Address | [address] | | | [place] [address] | + + + | Home Phone [...] + +------+ + | Care Sales Representative Womens Health Name | Role | Phone | [...] + + | 09/23/ | Telephone | [facility] | Brian Orosco MD | Advice Only | | 2019 | | VASCULAR SURGERY | [address] | | | | | [address] [place] | [place], [place] | | | | | [place], [place] | [address] | | | | | [address] | [phone] | | | | | [phone] | | | +--------+ + + + [...] transfer the call to a rolf munoz air brake worker was caller made aware that if [...] 2019 | Office | | [address] [facility] | | | | Visit | | 160 [place] | | | | | | [address] | | | | | | | | +--------+ + + + + documented as of this encounter Visit Diagnoses Not on filedocumented in this encounter
--- OUTSIDE RECORDS SUMMARY | ~2020-08-16 | XMS | Encounter Summary ---
Demographics + + + | Address | [address] | | | [place] [address] | + + + | Home Phone [...] Providers + +------+ + | Care Furnace Roaster Name | Role | Phone | + +------+ + | Rahul Silva MD | PCP | | + +------+ + Encounter Details +--------+ + + + + | Date | Type | Department | Care Team | Description | +--------+ + + + + | 11/10/ | Orders Only | [facility] | Farrukh Acuna MD | | | 2017 | | NEPHROLOGY [place] | [address] [place] | | | | | [address] [place] | [address] [place], [place] | | | | | [address] [place], [place] | [address] | | | | | [address] | | | | | | [phone] | | | +--------+ + + + [...] 2020 | Office | | [address] [facility] | | | | Visit | | 160 [place], [place] | | | | | | [address] | | | | | | | [...] + + + + | Non- | 3.86 (A) | 4.3 - 5.7 [...] | | | LAB | | | Kenyan | | | | | + + [...]
--- OUTSIDE RECORDS SUMMARY | ~2020-08-16 | XMS | Encounter Summary ---
Demographics + + + | Address | [address] | | | [place] [address] | + + + | Home Phone [...] Team Providers + +------+ + | Care Catheter Builder Name | Role | Phone | [...] E | | | | | | ([facility]) | [place], [place] | | | | | | Procedures | [address] | | | | | | VAS Arm | Phone: | | | | | | Bilateral | [phone] | | | | | | Mapping For | Fax: | | | | | | Dialysis | [phone] | | +--------+--------+ + + + + Reason for Visit + +--------+ + | Reason | Onset | Comments | | | Date | | + +--------+ + | Referral Consult | 07/30/ | | | | 2018 | | + +--------+ + Encounter Details +--------+ + + + + | Date | Type | Department | Care Team | Description | +--------+ + + + + | 07/30/ | Telephone | [facility] | Trisha Conner DNP | Referral Consult | | 2019 | | CARDIOTHORACIC | [address] | | | | | SURGERY [address] | [place], [place] | | | | | [address] | [address] | | | | | [place], [place] | | | | | | [address] | | | | | | [phone] | | | +--------+ + + + [...] this encounter Miscellaneous Notes Telephone Encounter - Inna Lugo Medical Assistant - 07/30/2019 12:28 PM PDTCalled daughter back to schedule imaging and consult. Daughter would like imaging to be done at [facility] documented in this encounter Plan of Treatment +--------+ + + + + | Date | Type | Specialty | Care Team | Description | +--------+ + + + + | 10/30/ | Virtual | Nephrology | Farrukh Acuna MD | | | 2019 | Office | | [address] [facility] | | | | Visit | | [address] [place] | | | | | | [address] | | | | | | | [...]
--- OUTSIDE RECORDS SUMMARY | ~2020-08-16 | XMS | Encounter Summary ---
Demographics + + + | Address | [address] | | | [place] [address] | + + + | Home Phone [...] Team Providers + +------+ + | Care Split Leather Department Supervisor Name | Role | Phone | [...] [place] | | | | | | [address] | | | | | | [phone] | | | +--------+ + + + [...] states the patient is currently admitted in [place] and will no t make it to [...] 2020 | Office | | [address] [facility] | | | | Visit | | [address] [place] | | | | | | [address] | | | | | | | | +--------+ + + + + documented as of this encounter Visit Diagnoses Not on filedocumented in this encounter"
--- OUTSIDE RECORDS SUMMARY | ~2020-08-16 | XMS | Encounter Summary ---
Demographics + + + | Address | [address] | | | [place] [address] | + + + | Home Phone [...] Team Providers + +------+ + | Care Insemination Worker Name | Role | Phone | [...] (OTHER) | | 2019 | Procedure | [facility] | [address] | | | | | OPERATING RO[address] | [place], [place] | | | | | [place] | [address] | | | | | [place], [place] | [phone] | | | | | [address] | | | | | | [phone] | | | +--------+ + + + [...] [place] | | | | | | [address] | | | | | | | | +--------+ + + + + documented as of this encounter Visit Diagnoses Not on filedocumented in this encounter"
--- OUTSIDE RECORDS SUMMARY | ~2020-08-16 | XMS | Encounter Summary ---
Demographics + + + | Address | [address] | | | [place] [address] | + + + | Home Phone [...] Providers + +------+ + | Care Career Technical Counselor Name | Role | Phone | + +------+ + | Rahul Silva MD | PCP | | + +------+ + Encounter Details +--------+ + + + + | Date | Type | Department | Care Team | Description | +--------+ + + + + | 08/13/ | Orders Only | [facility] | Farrukh Acuna MD | | | 2017 | | NEPHROLOGY [place] | [address] [place] | | | | | [address] [place] | [address] [place], [place] | | | | | [address] [place], [place] | [address] | | | | | [address] | | | | | | [phone] | | | +--------+ + + + [...] 2020 | Office | | [address] [facility] | | | | Visit | | 160 [place], [place] | | | | | | [address] | | | | | | | [...] | | | LAB | | | [place] | | | | | + + [...]
--- OUTSIDE RECORDS SUMMARY | ~2020-08-16 | XMS | Encounter Summary ---
Demographics + + + | Address | [address] | | | [place] [address] | + + + | Home Phone [...] Team Providers + +------+ + | Care Emblem Fuser Tender Name | Role | Phone | [...] | | | | disease not | [place], | [place], [place] | | | | | on chronic | [place] [address] | [address] | | | | | dialysis | Phone: | Phone: | | | | | ([facility]) | [phone] | [phone] | | | | | Hypertension | Fax: | Fax: | | | | | , | [phone] | [phone] | | | | | unspecified | | | | | | | type | | | +--------+ + + + + + Encounter Details +--------+ + + + + | Date | Type | Department | Care Team | Description | +--------+ + + + + | 07/28/ | Orders Only | [facility] | Farrukh Acuna MD | Iron deficiency | | 2019 | | NEPHROLOGY [place] | [address] [place] | (Primary Dx); Anemia | | | | [address] [place] | [address] [place], [place] | of chronic kidney | | | | 160 [place], [place] | [address] | failure, stage 5 | | | | [address] | | ([facility]); Stage 5 | | | | [phone] | | chronic kidney | | | | | | disease not on | | | | | | chronic dialysis | | | | | | ([facility]); Secondary | | | | | | hyperparathyroidism | | | | | | ([facility]); Hypertension, | | | | [...] | | | Visit | | [address] [place], [place] | | | | | | [address] | | | | | | | [...] until 07/28/2020 | | | | | ([facility]) Hypertension, | | | | [...] | 07/28/2020 | | | | | ([facility]) Hypertension, | | | | [...] dialysis | | | | | | ([facility]) Hypertension, | | | | [...] dialysis | | | | | | ([facility]) Hypertension, | | | | | | unspecified type | | + +------+--------+ + + | Parathyroid Hormone, | Lab | Routin | Stage 5 chronic | Expected: | | Intact | | e | kidney disease not | 09/27/2019, Expires: | | | | | on chronic dialysis | 07/28/2020 | | | | | ([facility]) Secondary | | | | | | hyperparathyroidism | | | | | | ([facility]) Hypertension, | | | | [...] chronic | Ordered: 07/28/2019 | | to [facility] | Referral | e | kidney disease not | | | Surgery | | | on chronic dialysis | | | | | | ([facility]) Hypertension, | | | | [...]
--- OUTSIDE RECORDS SUMMARY | ~2020-08-16 | XMS | Encounter Summary ---
Demographics + + + | Address | [address] | | | [place] [address] | + + + | Home Phone [...] + +------+ + | Care Director Of Income Tax Name | Role | Phone | + +------+ + | Rahul Silva MD | PCP | | + +------+ + Encounter Details +--------+ + + + + | Date | Type | Department | Care Team | Description | +--------+ + + + + | 08/20/ | Orders Only | [facility] | Farrukh Acuna MD | Stage 4 chronic | | 2019 | | NEPHROLOGY [place] | [address] [place] | kidney disease (HCC) | | | | [address] | [address] [place], [place] | (Primary Dx); | | | | [address] | [address] | Persistent | | | | [place], [place] | | proteinuria; | | | | [address] | | Secondary | | | | [phone] | | hyperparathyroidism | | | | [...] 2020 | Office | | [address] [facility] | | | | Visit | | [address] [place], [place] | | | | | | [address] | | | | | | | [...]
--- OUTSIDE RECORDS SUMMARY | ~2020-08-16 | XMS | Encounter Summary ---
Demographics + + + | Address | [address] | | | [place] [address] | + + + | Home Phone [...] Team Providers + +------+ + | Care Appeals Rn Name | Role | Phone | [...] + + | 09/07/ | Telephone | [facility] | Sandy Gomez, | Surgery Appointment | | 2019 | | VASCULAR SURGERY | RN | | | | | [address] | | | | | | [address] [place] | | | | | | [address] | | | | | | [phone] | | | +--------+ + + + [...] 2019 | Office | | [address] [facility] | | | | Visit | | 160 [place] | | | | | | [address] | | | | | | | | +--------+ + + + + documented as of this encounter Visit Diagnoses Not on filedocumented in this encounter"
--- OUTSIDE RECORDS SUMMARY | ~2020-08-16 | XMS | Encounter Summary ---
Demographics + + + | Address | [address] | | | [place] [address] | + + + | Home Phone [...] [place] | | | | | [address] | | + + + + + Care Team Providers + +------+ + | Care Medical Care Evaluation Specialist Name | Role | Phone | + +------+ + PCP | Unavailable | + +------+ + Encounter Details +--------+ + + + + | Date | Type | Department | Care Team | Description | +--------+ + + + + | 03/30/ | Results | | Other, Faculty | | | 1992 | Only | | [phone] | | +--------+ + + + + [...] | | + +---------+ + + | [facility] DEPARTMENT OF | | | | [...] | | | | | | | [id number] AND | | | | | | [...] | | + +---------+ + + | [facility] DEPARTMENT OF | | | | [...] | | + +---------+ + + | [facility] DEPARTMENT OF | | | | [...] | | + +---------+ + + | [facility] DEPARTMENT OF | | | | [...] | | | | | | | [id number] | | | | | | CHEST: [...] | | + +---------+ + + | [facility] DEPARTMENT OF | | | | [...] | | | | | | | [id number] | | | | | | CHEST: [...] | | + +---------+ + + | [facility] DEPARTMENT OF | | | | [...] | | | | | | | [id number], | | | | | | PORTABLE, [...] | | + +---------+ + + | [facility] DEPARTMENT OF | | | | [...] | | | | | | | [id number], | | | | | | PORTABLE, [...] and | | | | | | Hanahan Ganzcatheter are | | | | | [...] | | + +---------+ + + | [facility] DEPARTMENT OF | | | | [...] | | | | | | in [facility]. | | | | | | Bilateral [...] | | | | | | a Hanahan-Lupe catheter | | | | | | [...] | | | | placement of a Hanahan-Lupe | | | | | | catheter. CHEST, | | | | | | SINGLE AP PORTABLE: | | | | | | 03-31-93 AT 1000 HOURS | | | | | | FINDINGS: Since the | | | | | | prior study, the | | | | | | Hanahan-Lupe catheter has | | | | | [...] IMPRESSION: | | | | | | Hanahan-Lupe catheter | | | | | | [...] The | | | | | | Hanahan-Lupe catheter | | | | | | [...] and | | | | | | Hanahan-Lupe catheter | | | | | | [...] endotracheal | | | | | | tube,Hanahan-Lupe catheter | | | | | | [...] | | | | | | a Hanahan-Lupe catheter | | | | | | [...] | | | | placement of a Hanahan-Lupe | | | | | | catheter. CHEST, | | | | | | SINGLE AP PORTABLE: | | | | | | 03-31-93 AT 1000 HOURS | | | | | | FINDINGS: Since the | | | | | | prior study, the | | | | | | Hanahan-Lupe catheter has | | | | | [...] IMPRESSION: | | | | | | Hanahan-Lupe catheter | | | | | | [...] The | | | | | | Hanahan-Lupe catheter | | | | | | [...] and | | | | | | Hanahan-Lupe catheter | | | | | | [...] endotracheal | | | | | | tube,Hanahan-Lupe catheter | | | | | | [...] | | | | | | a Hanahan-Lupe catheter | | | | | | [...] | | | | placement of a Hanahan-Lupe | | | | | | catheter. CHEST, | | | | | | SINGLE AP PORTABLE: | | | | | | 03-31-93 AT 1000 HOURS | | | | | | FINDINGS: Since the | | | | | | prior study, the | | | | | | Hanahan-Lupe catheter has | | | | | [...] IMPRESSION: | | | | | | Hanahan-Lupe catheter | | | | | | [...] The | | | | | | Hanahan-Lupe catheter | | | | | | [...] and | | | | | | Hanahan-Lupe catheter | | | | | | [...] endotracheal | | | | | | tube,Hanahan-Lupe catheter | | | | | | [...] | | + +---------+ + + | [facility] DEPARTMENT OF | | | | [...] | | | | | | a Hanahan-Lupe catheter | | | | | | [...] | | | | placement of a Hanahan-Lupe | | | | | | catheter. CHEST, | | | | | | SINGLE AP PORTABLE: | | | | | | 03-31-93 AT 1000 HOURS | | | | | | FINDINGS: Since the | | | | | | prior study, the | | | | | | Hanahan-Lupe catheter has | | | | | [...] IMPRESSION: | | | | | | Hanahan-Lupe catheter | | | | | | [...] The | | | | | | Hanahan-Lupe catheter | | | | | | [...] and | | | | | | Hanahan-Lupe catheter | | | | | | [...] endotracheal | | | | | | tube,Hanahan-Lupe catheter | | | | | | [...] | | + +---------+ + + | [facility] DEPARTMENT OF | | | | [...] | | | | | | a Hanahan-Lupe catheter | | | | | | [...] | | | | placement of a Hanahan-Lupe | | | | | | catheter. CHEST, | | | | | | SINGLE AP PORTABLE: | | | | | | 03-31-93 AT 1000 HOURS | | | | | | FINDINGS: Since the | | | | | | prior study, the | | | | | | Hanahan-Lupe catheter has | | | | | [...] IMPRESSION: | | | | | | Hanahan-Ulpe catheter | | | | | | [...] The | | | | | | Hanahan-Lupe catheter | | | | | | [...] and | | | | | | Hanahan-Lupe catheter | | | | | | [...] endotracheal | | | | | | tube,Hanahan-Lupe catheter | | | | | | [...] | | + +---------+ + + | [facility] DEPARTMENT OF | | | | | RADIOLOGY | | | | + +---------+ + + FOOT, 2 VIEWS (03/30/1993 11:50 PM PDT) + + + + + + | Component | Value | Ref Range | Performed | Pathologist | | | | | At | Signature | + + + + + + | NAC[facility], 2 | Radiologist 1: [facility] | | [...] | | | | | | a Hanahan-Lupe catheter | | | | | | [...] | | | | placement of a Hanahan-Lupe | | | | | | catheter. CHEST, | | | | | | SINGLE AP PORTABLE: | | | | | | 03-31-93 AT 1000 HOURS | | | | | | FINDINGS: Since the | | | | | | prior study, the | | | | | | Hanahan-Lupe catheter has | | | | | [...] IMPRESSION: | | | | | | Hanahan-Lupe catheter | | | | | | [...] The | | | | | | Hanahan-Lupe catheter | | | | | | [...] and | | | | | | Hanahan-Lupe catheter | | | | | | [...] endotracheal | | | | | | tube,Hanahan-Lupe catheter | | | | | | [...] | | + +---------+ + + | [facility] DEPARTMENT OF | | | | [...] | | | | | | a Hanahan-Lupe catheter | | | | | | [...] | | | | placement of a Hanahan-Lupe | | | | | | catheter. CHEST, | | | | | | SINGLE AP PORTABLE: | | | | | | 03-31-93 AT 1000 HOURS | | | | | | FINDINGS: Since the | | | | | | prior study, the | | | | | | Hanahan-Lupe catheter has | | | | | [...] IMPRESSION: | | | | | | Hanahan-Lupe catheter | | | | | | [...] The | | | | | | Hanahan-Lupe catheter | | | | | | [...] and | | | | | | Hanahan-Lupe catheter | | | | | | [...] endotracheal | | | | | | tube,Hanahan-Lupe catheter | | | | | | [...] | | + +---------+ + + | [facility] DEPARTMENT OF | | | | | RADIOLOGY | | | | + +---------+ + + documented in this encounter Visit Diagnoses Not on filedocumented in this encounter"
--- OUTSIDE RECORDS SUMMARY | ~2020-08-16 | XMS | Encounter Summary ---
Demographics + + + | Address | [address] | | | [place] [address] | + + + | Home Phone [...] Team Providers + +------+ + | [employer] Contractor Sales Name | Role | Phone | [...] [address] | | | | | [place], [place] | [place], [place] | | | | | [address] | [address] | | | | | [phone] | [phone] | | | | | | | [...] 2020 | Office | | [address] [facility] | | | | Visit | | [address] | | | | | | [address] | | | | | | | [...]
--- OUTSIDE RECORDS SUMMARY | ~2020-08-16 | XMS | Encounter Summary ---
Demographics + + + | Address | [address] | | | [place] [address] | + + + | Home Phone [...] [place] | | | | | [address] | | + + + + + Care Team Providers + +------+ + | Care Steam Station Supervisor Name | Role | Phone | + +------+ + PCP | Unavailable | + +------+ + Encounter Details +--------+ + + + + | Date | Type | Department | Care Team | Description | +--------+ + + + + | 12/28/ | Procedure - | Digestive Health | Record, Operation | Operative Report | | 1996 | | Center at [facility] [address] | | | | | Transcribed | [facility] | | | | | | for Health and | | | | | | Healing, Building [address] | | | | | | [place], [place] | | | | | | [address] | | | | | | [phone] | | | +--------+ + + + [...] this encounter Procedure Notes Record, Operation - 12/28/1996 12:00 AM PSTAssociated Order(s): OPERATION RECORD [place] [address] [address], [place] [address] [facility] OPERATION RECORD Med Rec No.: [id number] Date: 12/28/96 Name: Kavon Andujar ATTENDING SURGEON: Robert Carlson M.D. Professor, Vascular crankshaft grinder(S): Nick Noriega M.D. Gypsum Block Setter, General Surgery POSTOPERATIVE DIAGNOSIS(ES): Left stump osteophyte. OPERATION(S) PERFORMED: Revision of left rasdc-wih-kwio amputation and excision of stump osteophyte. SPECIMEN(S) REMOVED: 1. Swab of pseudocapsule for culture. 2. Osteophyte to Pathology. ANESTHESIA: General endotracheal anesthesia. 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 He has developed pain over the stump. A recent CT scan showed an osteophyte growing on the end of the stump. PROCEDURE: The patient was taken to the Operating Room. General endotracheal anesthesia was performed by Anesthesia. The left cbnbp-ghf-kzwi amputation stump was sterilely prepped and draped in a standard surgical fashion. Using a #10 blade scalpel, a 5 cm segment of the old amputation scar was incised and extended sharply to the pseudocapsule of the osteophyte of the left stump. Upon entering the pseudocapsule, about 20 cc of serous fluid exuded. A swab of this was sent for culture. The contents of the capsule were removed. There appeared to be morsels of adipose tissue along with small bits of bone fragments. Using cautery, the pseudocapsule and thick fibrous tissue around the osteophyte was excised circumferentially. This exposed the osteophyte. Using a rongeur, the osteophyte was removed until the surface of the femur was smooth. Using cautery all bleeding points were stopped. Using sutures of 3-0 Vicryl, the fascial and muscles layers of the stump were closed over the end of the femur. This was done in two layers. The skin was closed using interrupted vertical mattress sutures using 4-0 nylon. The stump was sterilely dressed in a standard manner. All counts were correct at the end of the case. Blood loss was minimal. The patient was transferred to the Post Anesthesia Care Unit in stable condition. Nick Noriega M.D. Gypsum Block Setter, General Surgery Robert Carlson M.D. Professor, Vascular Surgery DOMINIC/jc A cc: documented in this encou nter Plan [...] | + + | 12/28/1996 12:00 AM [facility] | | [facility] | | [address] [place], [place] [address] | | [facility] | | | | OPERATION RECORD | | | | [facility] Rec No.: [id number] Date: 12/28/96 | | | | Name: Kavon Andujar | | | | | | ATTENDING SURGEON: Robert Carlson M.D. | | Professor, | | Vascular Surgery | | | | ANTIQUE CLOCK REPAIRER(S): Nick Noriega M.D. | | Gypsum Block Setter, General Surgery | | | | POSTOPERATIVE DIAGNOSIS(ES): Left stump osteophyte. | | | | OPERATION(S) PERFORMED: Revision of left gnjlr-gga-jfih amputation | | and excision of stump osteophyte. | | | | SPECIMEN(S) REMOVED: 1. Swab of pseudocapsule for culture. | | 2. Osteophyte to Pathology. | | | | ANESTHESIA: General endotracheal anesthesia. | | | | INDICATIONS: The patient is a 56-year-old white male who | | is status post left vyhyb-lge-ubmm | | amputation three years ago secondary | | to embolus. He has developed pain over the stump. A recent CT scan showed | | an osteophyte growing on the end of the stump. | | | | PROCEDURE: The patient was taken to the Operating Room. | | General endotracheal anesthesia was | | performed by Anesthesia. The | | left yldit-ukt-wgqo amputation stump was sterilely prepped and draped [...] | | Nick Noriega M.D. | | Gypsum Block Setter, General Surgery | | Robert Carlson M.D. | | Professor, | | Vascular Surgery | | | | DOMINIC/jc | | | | A | | | | cc: | | | + + documented in this encounter Visit Diagnoses Not on filedocumented in this encounter"
--- OUTSIDE RECORDS SUMMARY | ~2020-08-16 | XMS | Encounter Summary ---
Demographics + + + | Address | [address] | | | [place] [address] | + + + | Home Phone [...] [place] | | | | | [address] | | + + + + + Care Team Providers + +------+ + | Care Pot Fluxer Name | Role | Phone | + +------+ + | Rahul Silva MD | PCP | | + +------+ + Encounter Details +--------+ + + + + | Date | Type | Department | Care Team | Description | +--------+ + + + + | 05/07/ | Documentati | AntiCoagulation at | Note, | | | 1993 | on | [facility] [address] | Anticoagulation | | | | | [address] | Clinic | | | | | Physician's | | | | | | Pavilion, 3rd floor, | | | | | | [address] | | | | | | [place], [place] | | | | | | [address] | | | | | | [phone] | | | +--------+ + + + [...] documented as of this encounter Miscellaneous Notes Scan - Interface, Magnetic Tape Typewriter Operator In - 05/05/2009 11:41 AM PDT Patient Name: LUCAS CHACON Date: 1940 Sex: M Desired Ratio-Low: 2.00 High:3.00 Anti Coag Start Date: 04/13/93 Proposed Duration: 06 Tablet Size: 5.00 *- - - - - - - - - - - - - - - - - - - - - - - - - - - - - - - - - - - - - - - * Comments- PROTIME 15.9 SECONDS DONE AT [facility]. DAUGHTER REPORTS PATIENT WAS SEEN AT [facility] AFTER HE FELL AND INJURED LEG AMPUTATION SITE RESULTING IN BLEEDING. LOCAL MEASURES TAKEN TO CONTROL BLEEDING. COMPANY TO RECONNECT. DOSAGE INSTRUCTIONS GIVEN TO DTR-IN-LAW WHO WILL REVIEW WITH PATIENT AND EX- WHO WILL ASSIST HIM WITH MEDS. * * Instructions- TAKE 15MG TODAY 04/23. * * Special Concerns- * * Reason for Anti Coagulation- * * Problems- * * Medications- * * Health Care Provider Information- * * Patient Summary- Pro- INR Weekly Date Time Ind Ratio Bleed Thromb Changes Dose THRP 05/07/93 02.29 I 2.29 [id number] 0000 0000 60.00 N 05/01/93 02.65 I 2.65 [id number] 0000 0000 60.00 N 04/26/93 02.04 I 2.04 [id number] 0000 0000 62.50 N 04/23/93 01.64 I 1.64 [id number] 0000 0000 62.50 L 04/19/93 01.57 I 1.57 [id number] 0000 0000 65.00 L Dosage Weekly Date Fri Fri Sat Sun Total 05/07/93 10.00 07.50 10.00 07.50 10.00 07.50 07.50 60.00 05/01/93 10.00 07.50 10.00 07.50 10.00 07.50 07.50 60.00 04/26/93 10.00 07.50 10.00 07.50 10.00 07.50 10.00 62.50 04/23/93 10.00 07.50 10.00 07.50 10.00 07.50 10.00 62.50 04/19/93 10.00 10.00 07.50 10.00 10. 07.50 10. 65.00 documented in this encounter Plan of Treatment Not on filedocumented as of this encounter Visit Diagnoses Not on filedocumented in this encounter"
--- OUTSIDE RECORDS SUMMARY | ~2020-08-16 | XMS | Encounter Summary ---
Demographics + + + | Address | [address] | | | [place] [address] | + + + | Home Phone [...] Team Providers + +------+ + | Care Astronaut Mission Specialist Name | Role | Phone | [...] [address] | | | | | [place], [place] | [place], [place] | | | | | [address] | [address] | | | | | [phone] | [phone] | | | | | | | [...] 2020 | Office | | [address] [facility] | | | | Visit | | [address] [place] | | | | | | [address] | | | | | | | [...]
--- OUTSIDE RECORDS SUMMARY | ~2020-08-16 | XMS | Encounter Summary ---
Demographics + + + | Address | [address] | | | [place] [address] | + + + | Home Phone [...] Providers + +------+ + | Care Yarn Dumper Name | Role | Phone | + [...] [address] | | | | | [place], [place] | [place], [place] | | | | | [address] | [address] | | | | | [phone] | [phone] | | | | | | | [...] 2020 | Office | | [address] [facility] | | | | Visit | | [address] [place] | | | | | | [address] | | | | | | | [...]
--- OUTSIDE RECORDS SUMMARY | ~2020-08-16 | XMS | Encounter Summary ---
Demographics + + + | Address | [address] | | | [place] [address] | + + + | Home Phone [...] Team Providers + +------+ + | Care Box Toe Cementer Name | Role | Phone | + [...] + + | 05/31/ | Documentati | [facility] | Ami Cole, | Results | | 2020 | on | NEPRHOLOGY [place] | Track Layer Head | (interpath-05/29/2020 | | | | [address] | | ) | | | | [address] [place], [place] | | | | | | [address] | | | | | | [phone] | | | +--------+ + + + [...] [address] [facility] [place] | | | | Visit | | [address] [place], [place] | | | | | | [address] | | | | | | | [...]
--- OUTSIDE RECORDS SUMMARY | ~2020-08-16 | XMS | Encounter Summary ---
Demographics + + + | Address | [address] | | | [place] [address] | + + + | Home Phone [...] [place] | | | | | [address] | | + + + + + Care Team Providers + +------+ + | Care Gsa Coordinator Name | Role | Phone | [...] [place] | | | | | | [address] | | | | | | [place], [place] | | | | | | [address] | | | | | | [phone] | | | +--------+ + + + [...] of this encounter Progress Notes Interface, Lead Athlete In - 12/28/2006 5:10 AM PST [facility] [place] [address] [place], [place] [address] or January 31, 1998 GRIFFIN SMILEY MD [address] [place] [address] [place] [address] RE:PORFIRIO ZAVALA MR#:[id number] Smiley: As [...] to hear in our conversation that the [facility] does not cover Ultram in their formulary, [...] in the future. Sincerely, Nelson Melara M.D. Filling Hauler, Anesthesiology [facility] MANDY/geovanni documented in this encounter Plan of Treatment Not on filedocumented as of this encounter Visit Diagnoses Not on filedocumented in this encounter"
--- OUTSIDE RECORDS SUMMARY | ~2020-08-16 | XMS | Encounter Summary ---
Demographics + + + | Address | [address] | | | [place] [address] | + + + | Home Phone [...] Providers + +------+ + | Care Application Chemist Name | Role | Phone | + +------+ + | Rahul Silva MD | PCP | | + +------+ + Encounter Details +--------+ + + + + | Date | Type | Department | Care Team | Description | +--------+ + + + + | 08/13/ | Orders Only | [facility] | Farrukh Acuna MD | | | 2017 | | NEPHROLOGY [place] | [address] [place] | | | | | [address] [place] | [address] [place], [place] | | | | | [address] [place], [place] | [address] | | | | | [address] | | | | | | [phone] | | | +--------+ + + + [...] | | | Visit | | [address] [place], [place] | | | | | | [address] | | | | | | | [...] | | | LAB | | | [place] | | | | | + + [...]
--- OUTSIDE RECORDS SUMMARY | ~2020-08-16 | XMS | Encounter Summary ---
Demographics + + + | Address | [address] | | | [place] [address] | + + + | Home Phone [...] Team Providers + +------+ + | Care Partner Marketing Intern Name | Role | Phone [...] | Transaction, | | | | | [place], [place] | Provider Unknown | | | | | [address] | [phone] | | | | | [phone] | | | +--------+ + + + [...] 2020 | Office | | [address] [facility] | | | | Visit | | [address] [place] | | | | | | [address] | | | | | | | [...] in this encounter Results External Lab: CBC (11/13/2016 4:37 AM PST) + + + [...] Provider: , VENKAT MUELLER A , , , ALISSON, | | + + + + +---------+ + + | Performing | Address | City/State/Zipcode | Phone Number | | Organization | | | | + +---------+ + + | EXTERNAL LAB | | | | + +---------+ + + documented in this encounter Visit Diagnoses Not on filedocumented in this encounter"
--- OUTSIDE RECORDS SUMMARY | ~2020-08-16 | XMS | Encounter Summary ---
Demographics + + + | Address | [address] | | | [place] [address] | + + + | Home Phone [...] Team Providers + +------+ + | Care Tray Line Supervisor Name | Role | Phone | + +------+ + PCP | Unavailable | + +------+ + Encounter Details +--------+ + + + + | Date | Type | Department | Care Team | Description | +--------+ + + + + | 08/02/ | [facility] | [facility] | Nelson Lutz MD | | | 1991 | Encounter | MED CTR GENERIC OP | [address] [place], [place] | | | | | CONV DEPT [address] | [address] | | | | | [place], | [address] | | | | | [place] [address] | | | | | | [phone] | | | +--------+ + + + [...] [place] | | | | | | [address] | | | | | | | | +--------+ + + + + documented as of this encounter Visit Diagnoses Not on filedocumented in this encounter"
--- OUTSIDE RECORDS SUMMARY | ~2020-08-16 | XMS | Encounter Summary ---
Demographics + + + | Address | [address] | | | [place] [address] | + + + | Home Phone | | + + + | Preferred Language | Unknown | + + + | Marital Status | | + + + | Uatsdin Affiliation | 1077 | + + + | Race | White | + + + | Ethnic Group | Not or | + + + Author + + + | Author | [facility] | | | and [place] | + + + | Organization | [facility] | [...] Providers + +------+ + | Care Air Conditioning Insulation Installer Name | Role | Phone | [...] + | 09/03/ | Telephone | [facility] | Simon, | Lab Results | | 2019 | | NEPHROLOGY [place] | [facility] | | | | | [address] [place] | Machine Cutter | | | | | [address] [place] | | | | | | [address] | | | | | | [phone] | | | +--------+ + + + [...] Miscellaneous Notes Telephone Encounter - Trinidad Simon, Woodyard Operator - 09/03/2019 12:57 PM PDTSpoke to patient in regards to lab results. She verbalized understanding, I did not have the [facility] copy of the labs but I had them pulled up on [facility]. She insisted on knowing the results and [...] this time.Electr onically signed by Trinidad Simon Woodyard Operator at 09/03/2019 4:26 PM PDTTelephone Encounter - [...] be nice. Please call them back at [phone]. Detailed message may be left on phone: Yes Next OV: 10/04/19 If this is a symptom based call and you were unable to immediately transfer the call to [facility] staff, was caller made aware that if at any timehefeels it is an emergency they should call 911 or go to the nearest emergency room? Yes Is wic site coordinator needed: no do cumented in this encounter Plan of Treatment +--------+ + + + + | Date | Type | Specialty | Care Team | Description | +--------+ + + + + | 10/30/ | Virtual | Nephrology | Farrukh Acuna MD | | | 2019 | Office | | [address] [facility] | | | | Visit | | [address] [place] | | | | | | [address] | | | | | | | | +--------+ + + + + documented as of this encounter Visit Diagnoses Not on filedocumented in this encounter"
--- OUTSIDE RECORDS SUMMARY | ~2020-08-16 | XMS | Encounter Summary ---
Demographics + + + | Address | [address] | | | [place] [address] | + + + | Home Phone [...] Team Providers + +------+ + | Care Drill Press Operator Name | Role | Phone [...] | | | | | | | ([facility]) | | | | [...] + + | 09/10/ | Hospital | [facility] | Brian Orosco MD | CKD (chronic kidney | | 2019 | Encounter | [facility] | [address] | disease) stage 5, | | | | OPERATING ROOM [address] | [place] | GFR less than 15 | | | | [address] | [address] | ml/min ([facility]) | | | | [place] | [phone] | | | | | [address] | | | | | | [phone] | | | +--------+ + + + [...] shunt, please contact your ph ysician at [phone]. Discharge instructions for Diagnostic Imaging sedation patients [...] Anexsia, Lorcet, Lorcet HD, Lorcet Plus, Lortab, Imogene, Verdrocet, Vicodin, Vi codin ES, Vicodin HP, [...] information carefully each time. Talk to your informaticist regarding the use of this medicine in children. Special care may be needed. What side effects may I notice from receiving this medicine? Side effects that you should report to your doctor or health lead caregiver as soon as p ossible: allergic [...] attention (report to your doctor or health lead caregiver if they continue or are bothersome): [...] official disposal site. Contact the [facility] at [phone] or your [facility] to find a site. If [...] this medicine? Tell your doctor or health lead caregiver if your pain does not go [...] cuts, scrapes, or blows. Date Last Reviewed: 12/01/201619993429-7697 [employer] [address] [place] [address]. All righ ts reserved. This information is [...] | | | | | | | ([facility]), Secondary | | | | | | | hyperparathyroidism | | | | | | | ([facility]) | | | | [...] and bl ood clots prevention. Prescription for Imogene given and side effects were explained. Patient states that he also takes oxycodone at home; patient and his family were educated about taki ng oxycodone or Imogene only and not both. OTC Tylenol intake precautions also discussed. Arabella ent and his family verbalized understanding and agreeable. Opportunity to ask questions give n, all questions were answered. Leana Pimentel RN documented in this encounter H&P Notes Brian Orosco MD - 09/10/2019 12:28 PM [facility] Pre-Operative History & Physical [...] CV: No peripheral edema, rate regular SKIN: Oyens, warm, dry without rash/lesion MS: ROM not [...] Orosco MD - 09/10/2019 2:00 PM PDT [facility] Service: Vascular Surgery Operative Note Pre-operative Diagnosis: CKD and need for mcfp dialysis access Post-operative Diagnosis: same Procedure(s): Right brachiocephalic fistula creation Surgeon: Brian Orosco MD Squeegeer And Former(s): None Anesthesia: Monitor Anesthesia care and Local [...] | | | Visit | | [address] [place], [place] | | | | | | [address] | | | | | | | [...] ([facility]) | | + +--------+ [...] Testing | 65 - 99 mg/dL | [facility] | | | POC | performed at [facility];[address] | | LABORATORY | | | | [address];[place] | | | | | | [address] | | | | + + + + + + + + | Specimen | + + | | + + + + + + + | Performing | Address | City/State/Zipcode | Phone Number | | Organization | | | | + + + + + | [facility] | [address] | [place] [address] | [phone] | + + + + + POC [...] | | POC | performed at [facility];[address] | | LABORATORY | | | | [address];[place] | | | | | | [address] | | | | + + + + + + + + | Specimen | + + | | + + + + + + + | Performing | Address | City/State/Zipcode | Phone Number | | Organization | | | | + + + + + | [facility] | [address] | [place] [address] | [phone] | + + + + + documented in this encounter Visit Diagnoses + + | Diagnosis | + + | CKD (chronic kidney disease) stage 5, GFR less than 15 ml/min ([facility]) - Primary Chronic | | kidney disease, Stage V | + + documented in this encounter Admitting Diagnoses + + | Diagnosis | + + | CKD (chronic kidney disease) stage 5, GFR less than 15 ml/min ([facility]) Chronic kidney | | [...] One week or | | | longer, ocgbzu-bsm-janwa use of | | | at least [...]
--- OUTSIDE RECORDS SUMMARY | ~2020-08-16 | XMS | Encounter Summary ---
Demographics + + + | Address | [address] | | | [place] [address] | + + + | Home Phone [...] Team Providers + +------+ + | Care Shirt Turner Name | Role | Phone | [...] + + | 09/28/ | Telephone | [facility] | Sandy Gomez, | Appointment | | 2019 | | VASCULAR SURGERY | RN | | | | | [address] | | | | | | [place] | | | | | | [address] | | | | | | [phone] | | | +--------+ + + + [...] states the patient is currently admitted in [place] and will no t make it to [...] | | | Visit | | [address] [place] | | | | | | [address] | | | | | | | | +--------+ + + + + documented as of this encounter Visit Diagnoses Not on filedocumented in this encounter"
--- OUTSIDE RECORDS SUMMARY | ~2020-08-16 | XMS | Encounter Summary ---
Demographics + + + | Address | [address] | | | [place] [address] | + + + | Home Phone [...] Providers + +------+ + | Care Tool Coordinator Name | Role | Phone | + +------+ + | Mehrdad Bermgan | PCP | | + +------+ + Encounter Details +--------+ + + + + | Date | Type | Department | Care Team | Description | +--------+ + + + + | 07/27/ | Orders Only | [facility] | Farrukh Acuna MD | Essential | | 2020 | | NEPHROLOGY [place] | [address] [place] | hypertension | | | | [address] [place] | [address] [place], [place] | (Primary Dx); Type 2 | | | | [address] [place], [place] | [address] | diabetes mellitus | | | | [address] | | with diabetic | | | | [phone] | | nephropathy, with | | | | | | long-term current | | | | | | use of insulin | | | | | | ([facility]); Anemia of | | | | | | chronic kidney | | | | | | failure, stage 5 | | | | | | ([facility]); Persistent | | | | | | proteinuria; CKD | | | | | | (chronic kidney | | | | | | disease) stage 5, | | | | | | GFR less than 15 | | | | | | ml/min ([facility]) | +--------+ + + [...] | | | Visit | | [address] [place] | | | | | | [address] | | | | | | | | +--------+ + + + + documented as of this encounter Visit Diagnoses + + | Diagnosis | + + | Essential hypertension - Primary Unspecified essential hypertension | + + | Type 2 diabetes mellitus with diabetic nephropathy, with long-term current use of | | insulin ([facility]) | + + | Anemia of chronic kidney failure, stage 5 ([facility]) | + + | Persistent proteinuria Proteinuria | + + | CKD (chronic kidney disease) stage 5, GFR less than 15 ml/min ([facility]) Chronic kidney | | disease, Stage V | + + documented in this encounter"
--- OUTSIDE RECORDS SUMMARY | ~2020-08-16 | XMS | Encounter Summary ---
Demographics + + + | Address | [address] | | | [place] [address] | + + + | Home Phone [...] Team Providers + +------+ + | Care Motion Picture Set Grip Name | Role | Phone | + +------+ + | Rahul Silva MD | PCP | | + +------+ + Encounter Details +--------+ + + + + | Date | Type | Department | Care Team | Description | +--------+ + + + + | 10/08/ | Orders Only | [facility] | Farrukh Acuna MD | | | 2015 | | NEPHROLOGY [place] | [address] [place] | | | | | [address] [place] | [address] [place], [place] | | | | | [address] [place], [place] | [address] | | | | | [address] | | | | | | [phone] | | | +--------+ + + + [...] | | | Visit | | [address] [place], [place] | | | | | | [address] | | | | | | | [...]
--- OUTSIDE RECORDS SUMMARY | ~2020-08-16 | XMS | Encounter Summary ---
Demographics + + + | Address | [address] | | | [place] [address] | + + + | Home Phone [...] Team Providers + +------+ + | Care Tire Classifier Name | Role | Phone | + [...] | Transaction, | | | | | [place], [place] | Provider Unknown | | | | | [address] | [phone] | | | | | [phone] | | | +--------+ + + + [...] | | | Visit | | [address] [place], [place] | | | | | | [address] | | | | | | | [...]
--- OUTSIDE RECORDS SUMMARY | ~2020-08-16 | XMS | Encounter Summary ---
Demographics + + + | Address | [address] | | [place] [address] | + + + | Home Phone | | + + + | Preferred Language | Unknown | + + + | Marital Status | Single | + + + | Taoism Affiliation | PRO | + + + [...] [place] | | | | | [address] | | + + + + + Care Team Providers + +------+ + | Care Track Dresser Name | Role | Phone | + [...] Clinic | | | | | | [facility], [address] | | | | | | [place], [place] | | | | | | [address] | | | | | | [phone] | | | +--------+ + + + [...] as of this encounter Progress Notes Interface, Psychiatric Therapist In - 01/06/2007 5:03 AM PST CLINIC DATE: 11/10/97 [facility] - FOLLOW-UP VISIT [...] NOTE: After obtaining the informed consent, Mr. Anudjar was positioned in the supine position on [...] of narcotic medication misuse. Nelson Melara M.D. Infrastructure Architect, [facility] MANDY/camryn cc: Robert Carlson M.D. Professor, Vascular Surgery documented in this encounter Plan of Treatment Not on filedocumented as of this encounter Visit Diagnoses Not on filedocumented in this encounter"
--- OUTSIDE RECORDS SUMMARY | ~2020-08-16 | XMS | Encounter Summary ---
Demographics + + + | Address | [address] | | | [place] [address] | + + + | Home Phone [...] Team Providers + +------+ + | Care Critical Care Technician Name | Role | Phone [...] + + | 01/30/ | Documentati | [facility] | Simon, | Results (01/25/20) | | 2020 | on | NEPHROLOGY [place] | [facility] | | | | | [address] | Video Production Intern | | | | | [address] [place], [place] | | | | | | [address] | | | | | | [phone] | | | +--------+ + + + [...] | | | Visit | | [address] [place] [place] | | | | | | [address] | | | | | | | [...]
--- OUTSIDE RECORDS SUMMARY | ~2020-08-16 | XMS | Encounter Summary ---
Demographics + + + | Address | [address] | | | [place] [address] | + + + | Home Phone [...] Team Providers + +------+ + | Care Scanning Coordinator Name | Role | Phone | + +------+ + | Mehrdad Bergman | PCP | | + +------+ + Encounter Details +--------+ + + + + | Date | Type | Department | Care Team | Description | +--------+ + + + + | 03/27/ | Virtual | [facility] | Farrukh Acuna MD | CKD (chronic kidney | | 2019 | Office | NEPHROLOGY [place] | [address] [place] | disease) stage 5, | | | Visit | [address] | [address] [place], [place] | GFR less than 15 | | | | [address] | [address] | ml/min (HCC) | | | | [place], [place] | | (Primary Dx); Anemia | | | | [address] | | of chronic kidney | | | | [phone] | | failure, stage 5 | | [...] | | ([facility]); Secondary | | | | | | hyperparathyroidism | | | | | | ([facility]); Essential | | | | | | [...] before he comes back in 2 [facility]. documented in this encounter Progress Notes [...] 10/2016 with severe pneumonia, severe ZEKE; needed DREDGE PUMP OPERATOR for ~5 weeks b efore renal function recovery mid 12/2016. He was admitted to [facility] for 3 nights in July 2016 [...] 10/2016 with severe pneumonia, severe ZEKE; needed DREDGE PUMP OPERATOR for ~5 weeks b efore renal [...] Also: I see no need for acute DREDGE PUMP OPERATOR. I see no need to send [...] or concerns. Truly yours, Farrukh Acuna MD [facility], [facility] This exam was initially conducted via a secure 256-bit AES encrypted bidirectional video se ssion. You have chosen to receive care through the use of telemedicine. Telemedicine enables [facility] care providers at different locations to [...] | Office | | [address] [facility] | | | | Visit | | [address] [place], [place] | | | | | | [address] | | | | | | | | +--------+ + + + + documented as of this encounter Visit Diagnoses + + | Diagnosis | + + | CKD (chronic kidney disease) stage 5, GFR less than 15 ml/min ([facility]) - Primary Chronic | | kidney disease, [...]
--- OUTSIDE RECORDS SUMMARY | ~2020-08-16 | XMS | Encounter Summary ---
Demographics + + + | Address | [address] | | | [place] [address] | + + + | Home Phone [...] Providers + +------+ + | Care Powder Carrier Name | Role | Phone | + +------+ + | Rahul Silva MD | PCP | | + +------+ + Encounter Details +--------+ + + + + | Date | Type | Department | Care Team | Description | +--------+ + + + + | 11/27/ | Orders Only | [facility] | Conversion | | | 2017 | | NEPHROLOGY [place] | Transaction, | | | | | [address] | Provider Unknown | | | | | [address] [place] | | | | | | [address] | (Fax) | | | | | [phone] | | | +--------+ + + + [...] 2019 | Office | | [address] [facility] | | | | Visit | | [facility] | | | | | | [address] | | | | | | | [...] | | | LAB | | | [place] | | | | | + + [...]
--- OUTSIDE RECORDS SUMMARY | ~2020-08-16 | XMS | Encounter Summary ---
Demographics + + + | Address | [address] | | | [place] [address] | + + + | Home Phone [...] Team Providers + +------+ + | Care C Iron Worker Name | Role | Phone | [...] [address] | | | | | [place], [place] | [place], [place] | | | | | [address] | [address] | | | | | [phone] | [phone] | | | | | | | [...] | | | Visit | | [address] [place] | | | | | | [address] | | | | | | | [...]
--- OUTSIDE RECORDS SUMMARY | ~2020-08-16 | XMS | Encounter Summary ---
Demographics + + + | Address | [address] | | | [place] [address] | + + + | Home Phone [...] Team Providers + +------+ + | Care Self Pay Representative Name | Role | Phone | [...] [address] | | | | | [place], [place] | [place], [place] | | | | | [address] | [address] | | | | | [phone] | [phone] | | | | | | | [...] 2020 | Office | | [address] [facility] | | | | Visit | | [address] [place] | | | | | | [address] | | | | | | | [...]
--- OUTSIDE RECORDS SUMMARY | ~2020-08-16 | XMS | Encounter Summary ---
Demographics + + + | Address | [address] | | | [place] [address] | + + + | Home Phone [...] Providers + +------+ + | Care Community Outreach Worker Name | Role | Phone | [...] + + | 06/08/ | Telephone | [facility] | LaiElmira rodas | Other | | 2020 | | NEPRHOLOGY [place] | A, Medical | (Hospitalization ) | | | | [address] | Director Strategic Account Management | | | | | [address] [place], [place] | | | | | | [address] | | | | | | [phone] | | | +--------+ + + + [...] Miscellaneous Notes Telephone Encounter - Elmira Hoyt, Distribution Engineer - 06/08/2020 10:11 AM PDTPati ents daughter called to inform us that her father was taken by ambulance this morning to [facility]. He was suffering from confusion and [...] 2019 | Office | | [address] [facility] | | | | Visit | | [address] [place], [place] | | | | | | [address] | | | | | | | | +--------+ + + + + documented as of this encounter Visit Diagnoses Not on filedocumented in this encounter"
--- OUTSIDE RECORDS SUMMARY | ~2020-08-16 | XMS | Encounter Summary ---
Demographics + + + | Address | [address] | | | [place] [address] | + + + | Home Phone [...] Team Providers + +------+ + | Care Aquatic Centre Manager Name | Role | Phone | [...] + + | 05/04/ | Refill | [facility] | Farrukh Acuna MD | Medication Refill | | 2020 | | NEPHROLOGY [place] | [address] [place] | | | | | [address] | [address] [place], [place] | | | | | [address] | [address] | | | | | [place], [place] | | | | | | [address] | | | | | | [phone] | | | +--------+--------+ + + + [...] | | | Visit | | [address] [place], [place] | | | | | | [address] | | | | | | | | +--------+ + + + + documented as of this encounter Visit Diagnoses + + | Diagnosis | + + | Essential hypertension - Primary Unspecified essential hypertension | + + | Anemia of chronic kidney failure, stage 5 ([facility]) | + + | Persistent proteinuria Proteinuria | + + | CKD (chronic kidney disease) stage 5, GFR less than 15 ml/min ([facility]) Chronic kidney | | disease, Stage V | + + documented in this encounter"
--- OUTSIDE RECORDS SUMMARY | ~2020-08-16 | XMS | Encounter Summary ---
Demographics + + + | Address | [address] | | | [place] [address] | + + + | Home Phone [...] Providers + +------+ + | Care Application Defense Manager Name | Role | Phone | + +------+ + | Rahul Silva MD | PCP | | + +------+ + Encounter Details +--------+ + + + + | Date | Type | Department | Care Team | Description | +--------+ + + + + | 12/06/ | Orders Only | [facility] | Farrukh Acuna MD | Essential | | 2020 | | NEPHROLOGY [place] | [address] [place] | hypertension | | | | [address] [place] | [address] [place], [place] | (Primary Dx); CKD | | | | [address] [place], [place] | [address] | (chronic kidney | | | | [address] | | disease) stage 5, | | | | [phone] | | GFR less than 15 | [...] 2019 | Office | | [address] [facility] [address] | | | | Visit | | [address] [place] | | | | | | [address] | | | | | | | [...] | ml/min ([facility]) | | | | | | Persistent [...] | ml/min ([facility]) | | | | | | Persistent [...] | ml/min ([facility]) | | | | | | Persistent [...] | ml/min ([facility]) | | | | | | Persistent [...] | ml/min ([facility]) | | | | | | Hypomagnesemia [...] | | ([facility]) Persistent | | | | | | [...] | ml/min ([facility]) Anemia | | | | | | of chronic kidney | | | | | | failure, stage 5 | | | | | | ([facility]) Persistent | | | | | | [...] | ml/min ([facility]) | | | | | | Persistent [...]
--- OUTSIDE RECORDS SUMMARY | ~2020-08-16 | XMS | Encounter Summary ---
Demographics + + + | Address | [address] | | | [place] [address] | + + + | Home Phone [...] Providers + +------+ + | Care Assembler Watch Train Name | Role | Phone | + +------+ + | Rahul Silva MD | PCP | | + +------+ + Encounter Details +--------+ + + + + | Date | Type | Department | Care Team | Description | +--------+ + + + + | 01/13/ | Orders Only | [facility] | Conversion | | | 2016 | | NEPHROLOGY [place] | Transaction, | | | | | [address] | Provider Unknown | | | | | [address] [place] | | | | | | [address] | (Fax) | | | | | [phone] | | | +--------+ + + + [...] Office | | [address] [facility] | | | | Visit | | [address] [facility] | | | | | | [address] | | | | | | | [...] - 1.030 | EXTERNAL | | | [place], | | | LAB | | | [...]
--- OUTSIDE RECORDS SUMMARY | ~2020-08-16 | XMS | Encounter Summary ---
Demographics + + + | Address | [address] | | | [place] [address] | + + + | Home Phone [...] Providers + +------+ + | Care Gear Milling Machine Set Up Operator Name | Role | Phone | + +------+ + | Rahul iSlva MD | PCP | | + +------+ + Reason for Visit +---------+ + | Reason | Comments | +---------+ + | Consult | AVF creation | +---------+ + Encounter Details +--------+---------+ + + + | Date | Type | Department | Care Team | Description | +--------+---------+ + + + | 08/26/ | Office | [facility] | Trisha Conner DNP | CKD (chronic kidney | | 2019 | Visit | VASCULAR SURGERY | [address] | disease) stage 5, | | | | [address] | [place] [address] [place], [place] | GFR less than 15 | | | | [place], [place] | [address] | ml/min (HCC) | | | | [address] | | (Primary Dx) | | | | [phone] | Brian Orosco MD | | | | | | [address] | | | | | | [place], [place] | | | | | | [address] | | | | | | [phone] | | | | | | | [...] CV: No peripheral edema, rate regular SKIN: [place], warm, dry without rash/lesion MS: ROM not [...] CV: No peripheral edema, rate regular SKIN: [place], warm, dry without rash/lesion MS: ROM not [...] 2020 | Office | | [address] [facility] | | | | Visit | | [address] [facility] | | | | | | [address] | | | | | | | [...] | than 15 ml/min ([facility]) | | + +------+--------+ + + | CBC no Differential | Lab | Routin | CKD (chronic | 1 Occurrences | | | | e | kidney disease) | starting 08/26/2019 | | | | | stage 5, GFR less | until 08/26/2020 | | | | | than 15 ml/min ([facility]) | | + +------+--------+ + + documented as of this encounter Visit Diagnoses + + | Diagnosis | + + | CKD (chronic kidney disease) stage 5, GFR less than 15 ml/min ([facility]) - Primary Chronic | | kidney disease, Stage V | + + documented in this encounter"
--- OUTSIDE RECORDS SUMMARY | ~2020-08-16 | XMS | Encounter Summary ---
Demographics + + + | Address | [address] | | | [place] [address] | + + + | Home Phone [...] Providers + +------+ + | Care Director Diversity Name | Role | Phone | + [...] [address] | | | | | [place], [place] | [place] [address] | | | | | [address] | [phone] | | | | | [phone] | | | +--------+ + + + [...] 2020 | Office | | [address] [facility] [address] | | | | Visit | | [address] [facility] | | | | | | [address] | | | | | | | [...] pressures of 5-10mmHg. MEASUREMENTS | | | Fulfillment Specialist: MARLENA Authenticated by: VICTORIANO BIRMINGHAM MD Report [...] venous pressures of 5-10mmHg. | | MEASUREMENTS Fulfillment Specialist: BAIRONuthenticated by: VICTORIANO BIRMINGHAM MDReptigre | | [...] | |MEASUREMENTS | | | | | |Fulfillment Specialist: | |Authenticated by: VICTORIANO BIRMINGHAM MD | [...]
--- OUTSIDE RECORDS SUMMARY | ~2020-08-16 | XMS | Encounter Summary ---
Demographics + + + | Address | [address] | | | [place] [address] | + + + | Home Phone [...] [place] | | | | | [address] | | + + + + + Care Team Providers + +------+ + | Care Spiral Tube Winder Name | Role | Phone | [...] Vyas | | | | | | [facility], [address] [place] [address] | | | | | | [place], [place] | | | | | | [address] | | | | | | [phone] | | | +--------+ + + + [...] as of this encounter Discharge Summaries Interface, Chha In - 12/22/2006 3:12 AM PST [place] [address] [place], [place] [address] [facility] MEDICAL SUMMARY OF HOSPITALIZATION Med Rec No.: [id number] Admission Date: 04/06/98 Name: Kavon Andujar Discharge Date: 04/08/98 STAFF PHYSICIAN: Galo Arroa M.D. Rope Making Machine Operator, Division of Plastic & Reconstructive Surgery PRINCIPAL [...] M.D. Resident, Plastic Surgery Galo Arora M.D. Rope Making Machine Operator, Division of Plastic & Reconstructive Surgery QIANA/charo P cc: GRIFFIN ASHER MD [address] [facility] [place] [address] documented in this encounter Plan of Treatment Not on filedocumented as of this encounter Visit Diagnoses Not on filedocumented in this encounter"
--- OUTSIDE RECORDS SUMMARY | ~2020-08-16 | XMS | Encounter Summary ---
Demographics + + + | Address | [address] | | | [place] [address] | + + + | Home Phone [...] Providers + +------+ + | Care Dental Assistant Name | Role | Phone [...] | | [address] | [place] [address] | | | | | [place] [address] | | | | | | [phone] | | | +--------+ + + + [...] 2019 | Office | | [address] [facility] | | | | Visit | | [address] [place] | | | | | | [address] | | | | | | | [...]
--- OUTSIDE RECORDS SUMMARY | ~2020-08-16 | XMS | Encounter Summary ---
Demographics + + + | Address | [address] | | | [place] [address] | + + + | Home Phone [...] Team Providers + +------+ + | Care Reed Repairer Name | Role | Phone | [...] | | | [address] | [place] [address] | | | | | [place] [address] | | | | | | [phone] | | | +--------+ + + + [...] Office | | [address] [facility] [address] | | | | Visit | | [address] [facility] | | | | | | [address] | | | | | | | [...]
--- OUTSIDE RECORDS SUMMARY | ~2020-08-16 | XMS | Encounter Summary ---
Demographics + + + | Address | [address] | | | [place] [address] | + + + | Home Phone [...] [place] | | | | | [address] | | + + + + + Care Team Providers + +------+ + | Care Rehabilitation Aide/Scheduler Name | Role | Phone | + [...] | | [address] | [address] [place], | | | | | [place] | [place] [address] | | | | | [place] | [phone] | | | | | [address] | | | | | | [phone] | | | +--------+ + + + [...] | | | | | | a Ulm-Lupe catheter | | | | | | [...] | | | | placement of a Ulm-Lupe | | | | | | catheter. CHEST, | | | | | | SINGLE AP PORTABLE: | | | | | | 03-31-93 AT 1000 HOURS | | | | | | FINDINGS: Since the | | | | | | prior study, the | | | | | | Ulm-Lupe catheter has | | | | | [...] IMPRESSION: | | | | | | Ulm-Lupe catheter | | | | | | [...] The | | | | | | Ulm-Lupe catheter | | | | | | [...] and | | | | | | Ulm-Lupe catheter | | | | | | [...] endotracheal | | | | | | tube,Ulm-Lupe catheter | | | | | | [...] | + + + + + | [facility] | [address] | [place] [address] | | | PATHOLOGY | [place] | | | + + + + + documented in this encounter Visit Diagnoses Not on filedocumented in this encounter"
--- OUTSIDE RECORDS SUMMARY | ~2020-08-16 | XMS | Encounter Summary ---
Demographics + + + | Address | [address] | | | [place] [address] | + + + | Home Phone [...] Author | [facility] | + + + | Organization | [facility] | + + + | Address | Unknown | + + + | Phone | Unavailable | + + + Support + + + + + | Name | Relationship | Address | Phone | + + + + + | Darci Andujar | VALERIE | [place] | | | | | [address] | | + + + + + Care Team Providers + +------+ + | Care Sweep Molder Name | Role | Phone | [...] Clinic | | | | | | [facility], [address] | | | | | | [place], [place] | | | | | | [address] | | | | | | [phone] | | | +--------+ + + + [...] as of this encounter Progress Notes Interface, Ssds Mk 2 Advanced Operator In - 01/06/2007 5:03 AM PST CLINIC DATE: 10/31/97 [facility] - PROCEDURE NOTE [...] his left thigh stump. Nelson Melara M.D. Bulk Station Operator, [facility] MANDY/maryjo documented in this encounter Plan of Treatment Not on filedocumented as of this encounter Visit Diagnoses Not on filedocumented in this encounter"
--- OUTSIDE RECORDS SUMMARY | ~2020-08-16 | XMS | Encounter Summary ---
Demographics + + + | Address | [address] | | | [place] [address] | + + + | Home Phone [...] Team Providers + +------+ + | Care Olive Grader Name | Role | Phone | [...] | [address] | [place] [address] | | | | | [place] [address] | | | | | | [phone] | | | +--------+ + + + [...] | | | Visit | | [address] [place] | | | | | | [address] | | | | | | | [...]
--- OUTSIDE RECORDS SUMMARY | ~2020-08-16 | XMS | Encounter Summary ---
Demographics + + + | Address | [address] | | | [place] [address] | + + + | Home Phone [...] Team Providers + +------+ + | Care Flower Cheniller Name | Role | Phone | + [...] + + | 10/19/ | Documentati | [facility] | Simon, | Results (09/22/19) | | 2019 | on | NEPHROLOGY [place] | [facility] | | | | | [address] | [employer] Border [employer] Officer | | | | | [address] | | | | | | [place] | | | | | | [address] | | | | | | [phone] | | | +--------+ + + + [...] 2020 | Office | | [address] [facility] | | | | Visit | | [address] [place], [place] | | | | | | [address] | | | | | | | [...]
--- OUTSIDE RECORDS SUMMARY | ~2020-08-16 | XMS | Encounter Summary ---
Demographics + + + | Address | [address] | | | [place] [address] | + + + | Home Phone [...] Providers + +------+ + | Care Credit Collection Specialist Name | Role | Phone | [...] + + | 09/10/ | Hospital | [facility] | Brian Orosco MD | CKD (chronic kidney | | 2019 | Encounter | [facility] | [address] | disease) stage 5, | | | | OPER[address] | [place] | GFR less than 15 | | | | [address] | [address] | ml/min ([facility]) | | | | [place] | [phone] | | | | | [address] | | | | | | [phone] | | | +--------+ + + + [...] shunt, please contact your ph ysician at [phone]. Discharge instructions for Diagnostic Imaging sedation patients [...] Anexsia, Lorcet, Lorcet HD, Lorcet Plus, Lortab, Frankford, Verdrocet, Vicodin, Vi codin ES, Vicodin HP, [...] information carefully each time. Talk to your insurance verification representative regarding the use of this medicine in children. Special care may be needed. What side effects may I notice from receiving this medicine? Side effects that you should report to your doctor or health technical healthcare consultant as soon as p ossible: allergic reactions [...] attention (report to your doctor or health technical healthcare consultant if they continue or are bothersome): constipation [...] to an official disposal site. Contact the [facility] at [phone] or your [facility] government to find a site. If [...] this medicine? Tell your doctor or health technical healthcare consultant if your pain does not go away, [...] cuts, scrapes, or blows. Date Last Reviewed: 12/01/201619992180-5797 [employer]. [address] [place] [address]. All righ ts reserved. This information is [...] and bl ood clots prevention. Prescription for Frankford given and side effects were explained. Patient states that he also takes oxycodone at home; patient and his family were educated about taki ng oxycodone or Frankford only and not both. OTC Tylenol intake precautions also discussed. Arabella ent and his family verbalized understanding and agreeable. Opportunity to ask questions give n, all questions were answered. Leana Pimentel RN documented in this encounter H&P Notes Brian Orosco MD - [facility] Pre-Operative History & Physical [...] CV: No peripheral edema, rate regular SKIN: [place], warm, dry without rash/lesion MS: ROM not [...] Orosco MD - 09/10/2019 2:00 PM PDT [facility] Service: Vascular Surgery Operative Note Pre-operative Diagnosis: CKD and need for detention dialysis access Post-operative Diagnosis: same Procedure(s): Right brachiocephalic fistula creation Surgeon: Brian Orosco MD Packing And Stamping Machine Operator(s): None Anesthesia: Monitor Anesthesia care and Local [...] | | | Visit | | [address] [place], [place] | | | | | | [id number] | | | | | | | [...] | | than 15 ml/min ([facility]) | | + +--------+ + [...] Testing | 65 - 99 mg/dL | [facility] | | | POC | performed at [facility] | | LABORATORY | | | | [address];[place] | | | | | | [address] | | | | + + + + + + + + | Specimen | + + | | + + + + + + + | Performing | Address | City/State/Zipcode | Phone Number | | Organization | | | | + + + + + | [facility] | [address] | [place] [address] | [phone] | + + + + + POC [...] | | | POC | performed at [facility];[address] | | LABORATORY | | | | [address];[place] | | | | | | [address] | | | | + + + + + + + + | Specimen | + + | | + + + + + + + | Performing | Address | City/State/Zipcode | Phone Number | | Organization | | | | + + + + + | [facility] | [address] | [place] [address] | [phone] | + + + + + documented in this encounter Visit Diagnoses + + | Diagnosis | + + | CKD (chronic kidney disease) stage 5, GFR less than 15 ml/min ([facility]) - Primary Chronic | | [...] One week or | | | longer, tvfymc-pbr-mohdm use of | | | at least [...]
--- OUTSIDE RECORDS SUMMARY | ~2020-08-16 | XMS | Encounter Summary ---
Demographics + + + | Address | [address] | | | [place] [address] | + + + | Home Phone [...] Team Providers + +------+ + | Care Marriage Performer Name | Role | Phone | + [...] + + | 03/29/ | Documentati | [facility] | Alfred, | Other (IV fercesilia | | 2020 | on | NEPHROLOGY [place] | Charlie Abdi | order sent to [facility] | | | | [address] | Kennel Supervisor | IVT confirmation | | | | [address] | | received) | | | | [place], [place] | | | | | | [address] | | | | | | [phone] | | | +--------+ + + + [...] | | | Visit | | [address] [place], [place] | | | | | | [address] | | | | | | | | +--------+ + + + + documented as of this encounter Visit Diagnoses Not on filedocumented in this encounter"
--- OUTSIDE RECORDS SUMMARY | ~2020-08-16 | XMS | Encounter Summary ---
Demographics + + + | Address | [address] | | | [place] [address] | + + + | Home Phone [...] Team Providers + +------+ + | Care Point Of Sale Associate Name | Role | Phone | [...] + + | 08/13/ | Telephone | [facility] | Farrukh Acuna MD | Other (lab result) | | 2019 | | NEPRHOLOGY [place] | [address] | | | | | [address] | [address] [place], [place] | | | | | [address] [place], [place] | [address] | | | | | [address] | | | | | | [phone] | | | +--------+ + + + [...] Notes Telephone Encounter - Oly Alvarenga V, Sales Associate Cashier - 08/13/2019 3:[address] e with Dr. Acuna. Per Dr. Acuna, no change, potassium ok. Called and spoke with daughterCharlotte. Relay the provider message. She voiced understandin g. No further questions. elephone Encounter - Oly Alvarenga V Sales Associate Cashier - 08/13 3:05 PM PDTPlease review and [...] lab results. Please call them back at [phone]. Detailed message may be left on phone: Yes Last OV: 05/31/19 Next OV: 10/04/19 If this is a symptom based call and you were unable to immediately transfer the call to [facility] staff, was caller made aware that if at any timeshefeels it is an emergency they shoul d call 911 or go to the nearest emergency room? N/A Is pulp piler needed: no documented in this enc ounter Plan of Treatment +--------+ + + + + | Date | Type | Specialty | Care Team | Description | +--------+ + + + + | 10/30/ | Virtual | Nephrology | Farrukh Acuna MD | | | 2019 | Office | | [address] [facility] | | | | Visit | | [address] [place] | | | | | | [address] | | | | | | | | +--------+ + + + + documented as of this encounter Visit Diagnoses Not on filedocumented in this encounter"
--- OUTSIDE RECORDS SUMMARY | ~2020-08-16 | XMS | Encounter Summary ---
Demographics + + + | Address | [address] | | | [place] [address] | + + + | Home Phone [...] Providers + +------+ + | Care Car Wiper Name | Role | Phone | + +------+ + | Mehrdad Bergman | PCP | | + +------+ + Encounter Details +--------+ + + + + | Date | Type | Department | Care Team | Description | +--------+ + + + + | 03/28/ | Orders Only | [facility] | Farrukh Acuna MD | Essential | | 2020 | | NEPHROLOGY [place] | [address] | hypertension | | | | [address] | [address] [place], [place] | (Primary Dx); Anemia | | | | [address] | [address] | of chronic kidney | | | | [place], [place] | | failure, stage 5 | | | | [address] | | (HCC); Persistent | | | | [phone] | | proteinuria; CKD | | | | | | (chronic kidney | | | | | | disease) stage 5, | | | | | | GFR less than 15 | | | | | | ml/min ([facility]) | +--------+ + + + + Social [...] | | [address] [facility] [address] | | | | Visit | | [facility] [place] | | | | | | [address] | | | | | | | [...] | 03/28/2021 | | | | | ([facility]) Persistent | | | | | | proteinuria CKD | | | | | | (chronic kidney | | | | | | disease) stage 5, | | | | | | GFR less than 15 | | | | | | ml/min ([facility]) | | + +------+--------+ + + | CBC with | Lab | Routin | Essential | weekly for 3 | | Differential | | e | hypertension Anemia | Occurrences starting | | | | | of chronic kidney | 03/28/2020 until | | | | | failure, stage 5 | 03/28/2021 | | | | | ([facility]) Persistent | | | | | | proteinuria CKD | | | | | | (chronic kidney | | | | | | disease) stage 5, | | | | | | GFR less than 15 | | | | | | ml/min ([facility]) | | + +------+--------+ + + | Renal Function Panel | Lab | Routin | Essential | Expected: | | | | e | hypertension Anemia | 05/28/2020, Expires: | | | | | of chronic kidney | 03/28/2021 | | | | | failure, stage 5 | | | | | | ([facility]) Persistent | | | | | | proteinuria CKD | | | | | | (chronic kidney | | | | | | disease) stage 5, | | | | | | GFR less than 15 | | | | | | ml/min ([facility]) | | + +------+--------+ + + | CBC with | Lab | Routin | Essential | Expected: | | Differential | | e | hypertension Anemia | 05/28/2020, Expires: | | | | | of chronic kidney | 03/28/2021 | | | | | failure, stage 5 | | | | | | ([facility]) Persistent | | | | | | [...] 5 | | | | | | ([facility]) Persistent | | | | | | [...] 5 | | | | | | ([facility]) Persistent | | | | | | proteinuria CKD | | | | | | (chronic kidney | | | | | | disease) stage 5, | | | | | | GFR less than 15 | | | | | | ml/min ([facility]) | | + +------+--------+ + + | Parathyroid Hormone, | Lab | Routin | Essential | Expected: | | Intact | | e | hypertension Anemia | 05/28/2020, Expires: | | | | | of chronic kidney | 03/28/2021 | | | | | failure, stage 5 | | | | | | ([facility]) Persistent | | | | | | [...] 5 | | | | | | ([facility]) Persistent | | | | | | [...]
--- OUTSIDE RECORDS SUMMARY | ~2020-08-16 | XMS | Encounter Summary ---
Demographics + + + | Address | [address] | | | [place] [address] | + + + | Home Phone [...] Providers + +------+ + | Care Manager Social Responsibility Name | Role | Phone | + [...] | Transaction, | | | | | [place], [place] | Provider Unknown | | | | | [address] | [phone] | | | | | [phone] | | | +--------+ + + + [...] 2020 | Office | | [address] [facility] | | | | Visit | | [address] [place], [place] | | | | | | [address] | | | | | | | [...]
--- OUTSIDE RECORDS SUMMARY | ~2020-08-16 | XMS | Encounter Summary ---
Demographics + + + | Address | [address] | | | [place] [address] | + + + | Home Phone [...] Providers + +------+ + | Care Communication Signals Intelligence Name | Role | Phone | + [...] [address] | | | | | [place], [place] | [place], [place] | | | | | [address] | [address] | | | | | [phone] | [phone] | | | | | | | [...] | Office | | [address] [facility] | | | | Visit | | [address] [place] | | | | | | [address] | | | | | | | [...]
--- OUTSIDE RECORDS SUMMARY | ~2020-08-16 | XMS | Encounter Summary ---
Demographics + + + | Address | [address] | | | [place] [address] | + + + | Home Phone [...] Team Providers + +------+ + | Care Cleaning Professional Name | Role | Phone | + +------+ + | Rahul Silva MD | PCP | | + +------+ + Encounter Details +--------+ + + + + | Date | Type | Department | Care Team | Description | +--------+ + + + + | 12/16/ | Orders Only | [facility] | Conversion | | | 2016 | | NEPHROLOGY [place] | Transaction, | | | | | [address] | Provider Unknown | | | | | [address] [place] | | | | | | [address] | (Fax) | | | | | [phone] | | | +--------+ + + + [...] [facility] | | | | Visit | | [address] [facility] | | | | | | [address] | | | | | | | [...]
--- OUTSIDE RECORDS SUMMARY | ~2020-08-16 | XMS | Encounter Summary ---
Demographics + + + | Address | [address] | | | [place] [address] | + + + | Home Phone [...] Providers + +------+ + | Care Media Marketing Manager Name | Role | Phone | [...] + + | 09/10/ | Anesthesia | [facility] | Venkata Carroll | | | 2019 | [facility] | [address] | | | | | OPERATING ROOM [address] | [address] | | | | | [address] | [place] [address] | | | | | [place], [place] | [phone] | | | | | [address] | | | | | | [phone] | | | +--------+ + + + + Anesthesia Record + + + + + | Procedure Name | Responsible | Anesthesia Start | Anesthesia Stop Time | | | Anesthesiologist | Time | | + + + + + | INSERTION AV FISTULA | Venkata Carroll, | 09/10/19 1307 | 09/10/19 1401 | | (Right BBF) (Right | DEPUTY FELONY CLERK | | | | Arm Upper) [...] 09/10/19 1600 by | | amor | eoms-jec-sbkonn catheter system; | Trinidad Ramírez | Leana [...] EVALUATION Kavon Andujar 79 y.o. male 1940 [id number] Procedure(s) INSERTION AV FISTULA (Right BBF) (Right [...] signed by Venkata Carroll CRNA 09/10/2019 14:10 [facility] Venkata Carroll CRNA at 09/10 2:10 PM PDTAnesthesia Preprocedure Evaluation - Venkata Carroll CRNA - 09/10/2019 12:41 PM PDT ANESTHESIA PREANESTHESIA EVALUATION Kavon Andujar 79 y.o. male 1940 [id number] Procedure(s): INSERTION AV FISTULA (Right BBF) (Right [...] NOTE Kavon Andujar 79 y.o. male 1940 [id number] INSERTION AV FISTULA (Right BBF) (Right Arm [...] receiving team. Venkata Carroll CRNA 09/10/2019 14:09 [facility] signed by Venkata Carroll CRNA at 09/10 2:10 PM PDTdocumented in this encounter Plan of Treatment +--------+ + + + + | Date | Type | Specialty | Care Team | Description | +--------+ + + + + | 10/30/ | Virtual | Nephrology | Farrukh Acuna MD | | | 2019 | Office | | [address] [facility] | | | | Visit | | [address] [place], [place] | | | | | | [address] | | | | | | | [...]
--- OUTSIDE RECORDS SUMMARY | ~2020-08-16 | XMS | Encounter Summary ---
Demographics + + + | Address | [address] | | | [place] [address] | + + + | Home Phone [...] Team Providers + +------+ + | Care Superannuation Clerk Name | Role | Phone | [...] + + | 10/19/ | Documentati | [facility] | Simon, | Results (09/22/19) | | 2019 | on | NEPHROLOGY [place] | [facility] | | | | | [address] | Construction Estimator | | | | | [address] | | | | | | [place] | | | | | | [address] | | | | | | [phone] | | | +--------+ + + + [...] | | | Visit | | [address] [place], [place] | | | | | | [address] | | | | | | | [...]
--- OUTSIDE RECORDS SUMMARY | ~2020-08-16 | XMS | Encounter Summary ---
Demographics + + + | Address | [address] | | | [place] [address] | + + + | Home Phone [...] Team Providers + +------+ + | Care Clay Processing Factory Worker Name | Role | Phone | + +------+ + | Mehrdad Bergman | PCP | | + +------+ + Encounter Details +--------+ + + + + | Date | Type | Department | Care Team | Description | +--------+ + + + + | 06/05/ | Orders Only | [facility] | Ami Cole, | CKD (chronic kidney | | 2019 | | NEPHROLOGY [place] | Target Worker | disease) stage 5, | | | | [address] | | GFR less than 15 | | | | [address] | | ml/min ([facility]) | | | | [place], [place] | | (Primary Dx); Anemia | | | | [address] | | of chronic kidney | | | | [phone] | | failure, stage 5 | | | | | | ([facility]); Persistent | | | | | | [...] as of this encounter Progress Ami Pérez, Target Worker - 06/05/2020 2:[address]ette [...] 2020 | Office | | [address] [facility] | | | | Visit | | [address] [place] | | | | | | [address] | | | | | | | [...] | | than 15 ml/min ([facility]) | 06/05/2021 | | | | | Anemia of chronic | | | | | | kidney failure, | | | | | | stage 5 ([facility]) | | | | | | Persistent [...] | | than 15 ml/min ([facility]) | 06/05/2021 | | | | | Anemia of chronic | | | | | | kidney failure, | | | | | | stage 5 ([facility]) | | | | | | Persistent [...] | | than 15 ml/min ([facility]) | | | | | | Anemia of chronic | | | | | | kidney failure, | | | | | | stage 5 ([facility]) | | | | | | Persistent [...] | | than 15 ml/min ([facility]) | | | | | | Anemia of chronic | | | | | | kidney failure, | | | | | | stage 5 ([facility]) | | | | | | Persistent [...] | | than 15 ml/min ([facility]) | | | | | | Anemia of chronic | | | | | | kidney failure, | | | | | | stage 5 ([facility]) | | | | | | Persistent [...] | | than 15 ml/min ([facility]) | | | | | | Anemia of chronic | | | | | | kidney failure, | | | | | | stage 5 ([facility]) | | | | | | Persistent [...] | | than 15 ml/min ([facility]) | | | | | | Anemia of chronic | | | | | | kidney failure, | | | | | | stage 5 ([facility]) | | | | | | Persistent [...] | | than 15 ml/min ([facility]) | | | | | | Anemia of chronic | | | | | | kidney failure, | | | | | | stage 5 ([facility]) | | | | | | Persistent [...]
--- OUTSIDE RECORDS SUMMARY | ~2020-08-16 | XMS | Encounter Summary ---
Demographics + + + | Address | [address] | | | [place] [address] | + + + | Home Phone [...] Providers + +------+ + | Care Document Design Specialist Name | Role | Phone | + +------+ + PCP | Unavailable | + +------+ + Encounter Details +--------+ + + + + | Date | Type | Department | Care Team | Description | +--------+ + + + + | 12/31/ | Hospital | [facility] | | | | 2000 | Encounter | MED CTR XRAY [address] | | | | | | [address] | | | | | | [place] [address] | | | | | | [phone] | | | +--------+ + + + [...] | | | Visit | | [address] [place], [place] | | | | | | [address] | | | | | | | | +--------+ + + + + documented as of this encounter Visit Diagnoses Not on filedocumented in this encounter"
--- OUTSIDE RECORDS SUMMARY | ~2020-08-16 | XMS | Encounter Summary ---
Demographics + + + | Address | [address] | | | [place] [address] | + + + | Home Phone [...] Team Providers + +------+ + | Care Relief Docking Master Name | Role | Phone | [...] + + | 08/13/ | Telephone | [facility] | Farrukh Acuna MD | Other (lab result) | | 2019 | | NEPRHOLOGY [place] | [address] | | | | | [address] | [address] [place], [place] | | | | | [address] [place], [place] | [address] | | | | | [address] | | | | | | [phone] | | | +--------+ + + + [...] Notes Telephone Encounter - Oly Alvarenga V, Steamfitter Apprentice - 08/13/2019 3:32 PM PD[address]om e with Dr. Acuna. Per Dr. Acuna, no change, potassium ok. Called and spoke with daughterCharlotte. Relay the provider message. She voiced understandin g. No further questions. elephone Encounter - lOy Alvarenga V Steamfitter Apprentice - 08/13 3:05 PM PDTPlease review and [...] lab results. Please call them back at [phone]. Detailed message may be left on phone: Yes Last OV: 05/31/19 Next OV: 10/04/19 If this is a symptom based call and you were unable to immediately transfer the call to [facility] staff, was caller made aware that if at any timeshefeels it is an emergency they shoul d call 911 or go to the nearest emergency room? N/A Is fur repair inspector needed: no documented in this enc ounter Plan of Treatment +--------+ + + + + | Date | Type | Specialty | Care Team | Description | +--------+ + + + + | 10/30/ | Virtual | Nephrology | Farrukh Acuna MD | | | 2019 | Office | | [address] [facility] | | | | Visit | | [address] [place] | | | | | | [address] | | | | | | | | +--------+ + + + + documented as of this encounter Visit Diagnoses Not on filedocumented in this encounter"
--- OUTSIDE RECORDS SUMMARY | ~2020-08-16 | XMS | Encounter Summary ---
Demographics + + + | Address | [address] | | | [place] [address] | + + + | Home Phone [...] [place] | | | | | [address] | | + + + + + Care Team Providers + +------+ + | Care Fiber Artist Name | Role | Phone | + [...] Panfil[place] | | | | | | Ronlado Vyas | | | | | | [address] | | | | | | [place], [place] | | | | | | [address] | | | | | | [phone] | | | +--------+ + + + [...] as of this encounter Progress Notes Interface, Day Spa Manager In - 02/17/2007 3:02 AM PDT [facility] and [address] [address] [place], [place] [address] or August 05, 1996 RUBIA VALLES MD [address] [place] [facility] [address] RE:PORFIRIO ZAVALA MR#:[id number] Valles: Mr. Porfirio Zavala returned to the [facility] Neurosurgery Clinic today for a followup visit. 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 Mr. Zavala has failed numerous femoral nerve blocks, sciatic nerve blocks, and spinal cord blocks, and was at one time enrolled in the [facility] Pain Clinic. Mr. Zavala's pain is [...] dictating for: Alina Moise M.D. Professor and Bail Agent, Division of Neurosurgery MARYANA/sajan cc: Seven Khan, Ph.D. Clinical Psychologist-Neuropsychologist documented in this encounter Plan of Treatment Not on filedocumented as of this encounter Visit Diagnoses Not on filedocumented in this encounter"
--- OUTSIDE RECORDS SUMMARY | ~2020-08-16 | XMS | Encounter Summary ---
Demographics + + + | Address | [address] | | | [place] [address] | + + + | Home Phone [...] Team Providers + +------+ + | Care Pt Escort Name | Role | Phone | + +------+ + | Rahul Silva MD | PCP | | + +------+ + Encounter Details +--------+ + + + + | Date | Type | Department | Care Team | Description | +--------+ + + + + | 12/07/ | Orders Only | [facility] | Farrukh Acuna MD | Essential | | 2020 | | NEPHROLOGY [place] | [address] | hypertension | | | | [address] [place] | [address] [place], [place] | (Primary Dx); | | | | [address] [place], [place] | [address] | Secondary | | | | [address] | | hyperparathyroidism | | | | [phone] | | (HCC); Anemia of | | | | | | chronic kidney | | | | | | failure, stage 5 | | | | | | ([facility]); CKD (chronic | | | | | | kidney disease) | | | | | | stage 5, GFR less | | | | | | than 15 ml/min | | | | | | ([facility]); Persistent | | | | [...] [place] | | | | | | [address] | | | | | | | [...] | | | | | ml/min ([facility]) | [...] | | | | | ml/min ([facility]) | [...] | | | | | ml/min ([facility]) | [...] | | | | | ml/min ([facility]) | [...] | | | | | ml/min ([facility]) | [...] | | | ([facility]) CKD (chronic | | | | | | kidney disease) | | | | | | stage 5, GFR less | | | | | | than 15 ml/min ([facility]) | | + +------+--------+ + + | Ferritin | Lab | Routin | Essential | Expected: | | | | e | hypertension Anemia | 01/07/2020, Expires: | | | | | of chronic kidney | 12/07/2020 | | | | | failure, stage 5 | | | | | | ([facility]) CKD (chronic | | | | | | kidney disease) | | | | | | stage 5, GFR less | | | | | | than 15 ml/min ([facility]) | | + +------+--------+ + + | Parathyroid Hormone, | Lab | Routin | Essential | Expected: | | Intact | | e | hypertension | 01/07/2020, Expires: | | | | | Secondary | 12/07/2020 | | | | | hyperparathyroidism | | | | | | ([facility]) CKD (chronic | | | | | | kidney disease) | | | | | | stage 5, GFR less | | | | | | than 15 ml/min ([facility]) | | [...]
--- OUTSIDE RECORDS SUMMARY | ~2020-08-16 | XMS | Encounter Summary ---
Demographics + + + | Address | [address] | | | [place] [address] | + + + | Home Phone [...] Team Providers + +------+ + | Care Packer Fuser Name | Role | Phone | + [...] + + | 03/29/ | Documentati | [facility] | Alfred, | Other (IV fercesilia | | 2020 | on | NEPHROLOGY [place] | Charlie Abdi | order sent to [facility] | | | | [address] | Health Education Assistant | IVT confirmation | | | | [address] | | received) | | | | [place], [place] | | | | | | [address] | | | | | | [phone] | | | +--------+ + + + [...] | Office | | [address] [facility] | | | | Visit | | [address] [place], [place] | | | | | | [address] | | | | | | | | +--------+ + + + + documented as of this encounter Visit Diagnoses Not on filedocumented in this encounter"
--- OUTSIDE RECORDS SUMMARY | ~2020-08-16 | XMS | Encounter Summary ---
Demographics + + + | Address | [address] | | | [place] [address] | + + + | Home Phone [...] Providers + +------+ + | Care Home Health Travel Ot Name | Role | Phone | + [...] + + | 02/27/ | Documentati | [facility] | Simon, | Results (bmp | | 2019 | on | NEPHROLOGY [place] | [facility] | 02/24/20) | | | | [address] | Insurance Claims Examiner | | | | | [address] | | | | | | [place], [place] | | | | | | [address] | | | | | | [phone] | | | +--------+ + + + [...] 2019 | Office | | [address] [facility] [address] | | | | Visit | | [facility] | | | | | | [address] | | | | | | | [...]
--- OUTSIDE RECORDS SUMMARY | ~2020-08-16 | XMS | Encounter Summary ---
Demographics + + + | Address | [address] | | | [place] [address] | + + + | Home Phone [...] Team Providers + +------+ + | Care Finishing Tunnel Operator Name | Role | Phone | + +------+ + | Rahul Silva MD | PCP | | + +------+ + Encounter Details +--------+---------+ + + + | Date | Type | Department | Care Team | Description | +--------+---------+ + + + | 07/26/ | Office | [facility] | Farrukh Acuna MD | Stage 5 chronic | | 2019 | Visit | NEPHROLOGY [place] | [address] | kidney disease not | | | | [address] | [address] [place], [place] | on chronic dialysis | | | | [address] | [address] | (HCC) (Primary Dx); | | | | [place], [place] | | Edema of lower | | | | [address] | | extremity; Tobacco | | | | [phone] | | dependence syndrome; | | | [...] I see no need for acute SALES REPRESENTATIVE GIRLS' APPAREL. I see no need to send him [...] 05/31/19 1232 Encounter Date: 05/31/2019 Status: Signed Orthotic Fitter: Farrukh Acuna MD (Physician) Patient Active Problem [...] with severe pneumonia, severe ZEKE; needed SALES REPRESENTATIVE GIRLS' APPAREL for ~5 weeks b efore renal function recovery mid 12/2016. He was admitted to [facility] for 3 nights in July 2016 for [...] 19.5 (A) 05/27/2019 LABPROT 2,445.6 (A) 03/01/2019 [id number] 10/08/2018 Assessment: Mr. Andujar is a 78 y.o. male patient with stage IV CKD on a background of diabetes & hypert ension and recent hospitalization for C-diff and hehydration. The most likely pathology here is that of diabetic nephropathy +/- hypertensive nephrosclerosis/arteriolosclerosis. He was hospitalized in 10/2016 with severe pneumonia, severe ZEKE; needed SALES REPRESENTATIVE GIRLS' APPAREL for ~5 weeks b efore renal function [...] I see no need for acute SALES REPRESENTATIVE GIRLS' APPAREL. I see no need to send him [...] 2019 | Office | | [address] [facility] | | | | Visit | | [address] [place], [place] | | | | | | [address] | | | | | | | [...]
--- OUTSIDE RECORDS SUMMARY | ~2020-08-16 | XMS | Encounter Summary ---
Demographics + + + | Address | [address] | | | [place] [address] | + + + | Home Phone [...] Providers + +------+ + | Care Manager Pharmacy Name | Role | Phone | + +------+ + | aRhul Silva MD | PCP | | + +------+ + Encounter Details +--------+ + + + + | Date | Type | Department | Care Team | Description | +--------+ + + + + | 07/14/ | Orders Only | [facility] | Farrukh Acuna MD | | | 2018 | | NEPRHOLOGY [place] | [address] [facility] [address] | | | | | [address] | [address] [place], [place] | | | | | [address] [place], [place] | [address] | | | | | [address] | | | | | | [phone] | | | +--------+ + + + [...] | Office | | [address] [facility] | | | | Visit | | [address] [place], [place] | | | | | | [address] | | | | | | | [...]
--- OUTSIDE RECORDS SUMMARY | ~2020-08-16 | XMS | Encounter Summary ---
Demographics + + + | Address | [address] | | | [place] [address] | + + + | Home Phone [...] Team Providers + +------+ + | Care Bulk Mail Clerk Name | Role | Phone [...] | | [address] | [place] [address] | | | | | [place] [address] | | | | | | [phone] | | | +--------+ + + + [...] 2019 | Office | | [address] [facility] | | | | Visit | | [address] [place] | | | | | | [address] | | | | | | | [...]
--- OUTSIDE RECORDS SUMMARY | ~2020-08-16 | XMS | Encounter Summary ---
Demographics + + + | Address | [address] | | | [place] [address] | + + + | Home Phone [...] Providers + +------+ + | Care Lead Mechanical Engineer Name | Role | Phone | [...] | | | [address] [place], [place] | [address] | Persistent | | | | [address] | | proteinuria; Anemia | | | | [phone] | | of chronic kidney | | | | | | failure, stage 5 | | | | | | ([facility]); CKD (chronic | | | | | | kidney disease) | | | | | | stage 5, GFR less | | | | | | than 15 ml/min ([facility]) | +--------+ + + + + Social [...] 2020 | Office | | [address] [facility] [address] | | | | Visit | | [address] [facility] [place] | | | | | | [address] | | | | | | | [...] | | ([facility]) CKD (chronic | | | | | | kidney disease) | | | | | | stage 5, GFR less | | | | | | than 15 ml/min ([facility]) | | + +------+--------+ + + | [...] | | ([facility]) CKD (chronic | | | | | | kidney disease) | | | | | | stage 5, GFR less | | | | | | than 15 ml/min ([facility]) | | + +------+--------+ + + | [...] | | | | ml/min ([facility]) | | + +------+--------+ + + documented as of this encounter Visit Diagnoses + + | Diagnosis | + + | Essential hypertension - Primary Unspecified essential hypertension | + + | Persistent proteinuria Proteinuria | + + | Anemia of chronic kidney failure, stage 5 ([facility]) | + + | CKD (chronic kidney disease) stage 5, GFR less than 15 ml/min ([facility]) Chronic kidney | | disease, Stage V | + + documented in this encounter"
--- OUTSIDE RECORDS SUMMARY | ~2020-08-16 | XMS | Encounter Summary ---
Demographics + + + | Address | [address] | | | [place] [address] | + + + | Home Phone [...] Team Providers + +------+ + | Care Ship Erector Name | Role | Phone | [...] | | | [address] | [place] [address] | | | | | [place] [address] | | | | | | [phone] | | | +--------+ + + + [...] 2019 | Office | | [address] [facility] [address] | | | | Visit | | [address] [facility] | | | | | | [address] | | | | | | | [...]
--- OUTSIDE RECORDS SUMMARY | ~2020-08-16 | XMS | Encounter Summary ---
Demographics + + + | Address | [address] | | | [place] [address] | + + + | Home Phone [...] Providers + +------+ + | Care Distribution Dispatcher Name | Role | Phone | [...] [address] | | | | | [place], [place] | [place], [place] | | | | | [address] | [address] | | | | | [phone] | [phone] | | | | | | | [...] Office | | [address] [facility] | | | | Visit | | [address] [place] | | | | | | [address] | | | | | | | [...]
--- OUTSIDE RECORDS SUMMARY | ~2020-08-16 | XMS | Encounter Summary ---
Demographics + + + | Address | [address] | | | [place] [address] | + + + | Home Phone [...] Team Providers + +------+ + | Care Engineer Station Mainline Name | Role | Phone | + +------+ + | Mehrdad Bergman | PCP | | + +------+ + Encounter Details +--------+ + + + + | Date | Type | Department | Care Team | Description | +--------+ + + + + | 03/16/ | Orders Only | [facility] | Trisha Conner DNP | | | 2020 | | VASCULAR SURGERY | [address] | | | | | [address] | [address] | | | | | [place], [place] | [address] | | | | | [address] | | | | | | [phone] | | | +--------+ + + + [...] He does not want to come to [facility] until the pandemic is over . Discussed [...] [place] | | | | | | [address] | | | | | | | | +--------+ + + + + documented as of this encounter Visit Diagnoses Not on filedocumented in this encounter"
--- OUTSIDE RECORDS SUMMARY | ~2020-08-16 | XMS | Encounter Summary ---
Demographics + + + | Address | [address] | | | [place] [address] | + + + | Home Phone [...] Providers + +------+ + | Care Mold Press Operator Name | Role | Phone | + +------+ + | Rahul Silva MD | PCP | | + +------+ + Encounter Details +--------+ + + + + | Date | Type | Department | Care Team | Description | +--------+ + + + + | 07/14/ | Orders Only | [facility] | Farrukh Acuna MD | | | 2018 | | NEPRHOLOGY [place] | [address] [facility] [address] | | | | | [address] | [address] [place], [place] | | | | | [address] [place], [place] | [address] | | | | | [address] | | | | | | [phone] | | | +--------+ + + + [...] 2020 | Office | | [address] [facility] | | | | Visit | | [address] [place], [place] | | | | | | [address] | | | | | | | [...]
--- OUTSIDE RECORDS SUMMARY | ~2020-08-16 | XMS | Encounter Summary ---
Demographics + + + | Address | [address] | | | [place] [address] | + + + | Home Phone | | + + + | Preferred Language | Unknown | + + + | Marital Status | Single | + + + | Quaker Affiliation | PRO | + + + [...] [place] | | | | | [address] | | + + + + + Care Team Providers + +------+ + | Care Straw Hat Washer Operator Name | Role | Phone | [...] Clinic | | | | | | [facility], [address] | | | | | | [place], [place] | | | | | | [address] | | | | | | [phone] | | | +--------+ + + + [...] as of this encounter Progress Notes Interface, Weapons Mechanic In - 01/09/2007 5:07 AM [facility] DATE: 10/03/97 [facility] - PROGRESS NOTE CHIEF [...] Vargas D.O. Resident, Anesthesiology Nelson Melara M.D. Clothes Model, Anesthesiology [facility] NESTOR/dm cc: [place] [address] JESSENIA RODRIGUEZ MD DEPARTMENT OF FAMILY MEDICINE [facility] documented in this encounter Plan of Treatment Not on filedocumented as of this encounter Visit Diagnoses Not on filedocumented in this encounter"
--- OUTSIDE RECORDS SUMMARY | ~2020-08-16 | XMS | Encounter Summary ---
Demographics + + + | Address | [address] | | | [place] [address] | + + + | Home Phone [...] Providers + +------+ + | Care Tin Worker Name | Role | Phone | [...] + + | 11/17/ | Telephone | [facility] | Farrukh Acuna MD | Other (Patient call | | 2019 | | NEPHROLOGY [place] | [address] | ) | | | | [address] | [facility] [place] | | | | | [facility] [place] | [address] | | | | | [address] | | | | | | [phone] | | | +--------+ + + + [...] Miscellaneous Notes Telephone Encounter - Trinidad Simon Roof Bolting Coal Miner - 12/17/2019 10:24 AM PSTDr. A koum aware elephone Encounter - Trinidad Simon Roof Bolting Coal Miner - 11/17/2019 2:11 PM PS TPatients daughter is concerned because her dad has been having some confusion. She states t hat the ER told her that he may have had a "small stroke". She states that patient was instr ucted to take Asprin after the hospital stay. She would just like to let Dr. Acuna know. El ectronically signed by Trinidad Smion Roof Bolting Coal Miner at 11/17/2019 2:15 PM PSTdocum ented in this encounter Plan of Treatment +--------+ + + + + | Date | Type | Specialty | Care Team | Description | +--------+ + + + + | 10/30/ | Virtual | Nephrology | Farrukh Acuna MD | | | 2019 | Office | | [address] [facility] | | | | Visit | | [address] [place], [place] | | | | | | [address] | | | | | | | | +--------+ + + + + documented as of this encounter Visit Diagnoses Not on filedocumented in this encounter
--- OUTSIDE RECORDS SUMMARY | ~2020-08-16 | XMS | Encounter Summary ---
Demographics + + + | Address | [address] | | | [place] [address] | + + + | Home Phone [...] + + + | Author | [facility] | + + + | Organization | [facility] | + + + | Address | Unknown | + + + | Phone | Unavailable | + + + Support + + + + + | Name | Relationship | Address | Phone | + + + + + | Darci Andujar | VALERIE | [place] | | | | | [address] | | + + + + + Care Team Providers + +------+ + | Care County Director Welfare Name | Role | Phone | + [...] [address] | | | | | | [place], [place] | | | | | | [address] | | | | | | [phone] | | | +--------+ + + + [...] this encounter Miscellaneous Notes Scan - Interface, Plant And Maintenance Technician In - 05/05/2009 11:41 AM PDT Patient [...] * Comments- PROTIME 15.9 SECONDS DONE AT [facility]. DAUGHTER REPORTS PATIENT WAS SEEN AT [facility] AFTER HE FELL AND INJURED LEG AMPUTATION [...] Changes Dose THRP 05/07/93 02.29 I 2.29 [id number] 0000 0000 60.00 N 05/01/93 02.65 I 2.65 [id number] 0000 0000 60.00 N 04/26/93 02.04 I 2.04 [id number] 0000 0000 62.50 N 04/23/93 01.64 I 1.64 [id number] 0000 0000 62.50 L 04/19/93 01.57 I 1.57 [id number] 0000 0000 65.00 L Dosage Weekly Date [...]
--- OUTSIDE RECORDS SUMMARY | ~2020-08-16 | XMS | Encounter Summary ---
Demographics + + + | Address | [address] | | | [place] [address] | + + + | Home Phone [...] Team Providers + +------+ + | Care Sheltered Workshop Executive Director Name | Role | Phone | [...] | | [address] | [place] [address] | | | | | [place] [address] | | | | | | [phone] | | | +--------+ + + + [...] 2019 | Office | | [address] [facility] | | | | Visit | | [address] [place] | | | | | | [address] | | | | | | | [...]
--- OUTSIDE RECORDS SUMMARY | ~2020-08-16 | XMS | Encounter Summary ---
Demographics + + + | Address | [address] | | | [place] [address] | + + + | Home Phone [...] [place] | | | | | [address] | | + + + + + Care Team Providers + +------+ + | Care Ui Application Developer Name | Role | Phone | [...] [address] | | | | | | [place], [place] | | | | | | [address] | | | +--------+ + + + [...] as of this encounter Progress Notes Interface, Regional Service Manager In - 03/27/2007 3:12 AM PDT [...] an abnormal AC-BE, he was referred to [facility] for colonoscopy. MEDICATIONS: 1. Vicodin. 2. Various [...] Dr. Valles who is his physician in [place], [place]. He has made me aware that [...] M.D. Fellow, Gastroenterology SHANEL/stephon cc: ARIA [facility] [place] documented in this encounter Plan of Treatment Not on filedocumented as of this encounter Visit Diagnoses Not on filedocumented in this encounter"
--- OUTSIDE RECORDS SUMMARY | ~2020-08-16 | XMS | Encounter Summary ---
Demographics + + + | Address | [address] | | | [place] [address] | + + + | Home Phone [...] Team Providers + +------+ + | Care Flute Grinder Name | Role | Phone | [...] | | | [address] | [place] [address] | | | | | [place] [address] | | | | | | [phone] | | | +--------+ + + + [...] 2019 | Office | | [address] [facility] [address] | | | | Visit | | [facility] | | | | | | [address] | | | | | | | | +--------+ + + + + documented as of this encounter Procedures + +--------+ + + + | Procedure Name | Priori | Date/Time | Associated Diagnosis | Comments | | | ty | | | | + +--------+ + + + | XR CHEST 2 VIEWS | Routin | 07/17/2014 | | Results for this | | | e | 12:00 AM | | procedure are in the | | | | PDT | | results section. | + +--------+ + + + documented in this encounter Results XR Chest 2 Vws (07/17/2014 12:00 AM PDT) + + | Specimen [...]
--- OUTSIDE RECORDS SUMMARY | ~2020-08-16 | XMS | Encounter Summary ---
Demographics + + + | Address | [address] | | | [place] [address] | + + + | Home Phone [...] Team Providers + +------+ + | Care Nuclear Equipment Research Engineer Name | Role | Phone | + +------+ + | Rahul Silva MD | PCP | | + +------+ + Encounter Details +--------+ + + + + | Date | Type | Department | Care Team | Description | +--------+ + + + + | 08/13/ | Orders Only | [facility] | Conversion | | | 2016 | | NEPHROLOGY [place] | Transaction, | | | | | [address] | Provider Unknown | | | | | [address] [place] | | | | | | [address] | (Fax) | | | | | [phone] | | | +--------+ + + + [...] | | | Visit | | [facility] | | | | | | [address] | | | | | | | [...]
--- OUTSIDE RECORDS SUMMARY | ~2020-08-16 | XMS | Encounter Summary ---
Demographics + + + | Address | [address] | | | [place] [address] | + + + | Home Phone [...] Providers + +------+ + | Care Certified Veterinary Technician Name | Role | Phone [...] + + | 08/18/ | Refill | [facility] | Sandy Capellan | Medication Refill | | 2019 | | NEPRHOLOGY PAIGE Valadez RN | | | | | [address] | | | | | | [address] [place] | | | | | | [address] | | | | | | [phone] | | | +--------+--------+ + + + [...] They manually faxed re quest to the [place] office now and fax has been received. Spoke with the user experience manager and provided updated location/fax numbers for our [facility], and [place] office. They had a file for Dr Acuna with 4 locations in [place], 2 locations in [place], [facility], and [place]. They report they had faxed request to [...] | Office | | [address] [facility] | | | | Visit | | [address] [place], [place] | | | | | | [address] | | | | | | | [...]
--- OUTSIDE RECORDS SUMMARY | ~2020-08-16 | XMS | Encounter Summary ---
Demographics + + + | Address | [address] | | | [place] [address] | + + + | Home Phone [...] Team Providers + +------+ + | Care Escapement Matcher Name | Role | Phone | + [...] + + | 10/06/ | Telephone | [facility] | Farrukh Acuna MD | Other | | 2019 | | NEPHROLOGY [place] | [address] | | | | | [address] | [address] [place], [place] | | | | | [facility] [place] [place] | [address] | | | | | [address] | | | | | | [phone] | | | +--------+ + + + [...] in a week.Electronically signed by Trinidad Simon Business Services Analyst logan curtis 10/07/2019 10:17 AM PSTTelephone Encounter [...] take medication. Please call them back at [phone]. Detailed message may be left on phone: Yes Last OV: 10/04/19 Next OV: 12/06/19 If this is a symptom based call and you were unable to immediately transfer the call to [facility] staff, was caller made aware that if at any timeshefeels it is an emergency they shoul d call 911 or go to the nearest emergency room? N/A Is medical interpreter needed: no documented in this enc ounter Plan of Treatment +--------+ + + + + | Date | Type | Specialty | Care Team | Description | +--------+ + + + + | 10/30/ | Virtual | Nephrology | Farrukh Acuna MD | | | 2019 | Office | | [address] [facility] | | | | Visit | | [address] [place], [place] | | | | | | [address] | | | | | | | | +--------+ + + + + documented as of this encounter Visit Diagnoses Not on filedocumented in this encounter"
--- OUTSIDE RECORDS SUMMARY | ~2020-08-16 | XMS | Encounter Summary ---
Demographics + + + | Address | [address] | | | [place] [address] | + + + | Home Phone [...] Team Providers + +------+ + | Care Publishing Agent Name | Role | Phone | + +------+ + | Mehrdad Bergman | PCP | | + +------+ + Encounter Details +--------+ + + + + | Date | Type | Department | Care Team | Description | +--------+ + + + + | 03/16/ | Orders Only | [facility] | Trisha Conner DNP | | | 2020 | | VASCULAR SURGERY | [address] | | | | | [address] | [address] | | | | | [place], [place] | [address] | | | | | [address] | | | | | | [phone] | | | +--------+ + + + [...] He does not want to come to [facility] until the pandemic is over . [...] [place] | | | | | | [address] | | | | | | | | +--------+ + + + + documented as of this encounter Visit Diagnoses Not on filedocumented in this encounter"
--- OUTSIDE RECORDS SUMMARY | ~2020-08-16 | XMS | Encounter Summary ---
Demographics + + + | Address | [address] | | | [place] [address] | + + + | Home Phone [...] Providers + +------+ + | Care Associate Pathologist Name | Role | Phone | + [...] | Transaction, | | | | | [place], [place] | Provider Unknown | | | | | [address] | [phone] | | | | | [phone] | | | +--------+ + + + [...] | Office | | [address] [facility] | | | | Visit | | [address] [place], [place] | | | | | | [address] | | | | | | | [...]
--- OUTSIDE RECORDS SUMMARY | ~2020-08-16 | XMS | Encounter Summary ---
Demographics + + + | Address | [address] | | | [place] [address] | + + + | Home Phone [...] Team Providers + +------+ + | Care Philosophy Specialist Name | Role | Phone | + +------+ + | Rahul Silva MD | PCP | | + +------+ + Encounter Details +--------+ + + + + | Date | Type | Department | Care Team | Description | +--------+ + + + + | 09/01/ | Orders Only | [facility] | Farrukh Acuna MD | | | 2013 | | NEPHROLOGY [place] | [address] | | | | | [address] | [address] [place], [place] | | | | | 160 [place], [place] | [address] | | | | | [address] | | | | | | [phone] | | | +--------+ + + + [...] 2019 | Office | | [address] [facility] | | | | Visit | | [address] [facility] | | | | | | [address] | | | | | | | [...] | | | LAB | | | [place] | | | | | + + [...]
--- OUTSIDE RECORDS SUMMARY | ~2020-08-16 | XMS | Encounter Summary ---
Demographics + + + | Address | [address] | | | [place] [address] | + + + | Home Phone [...] Team Providers + +------+ + | Care Woodworking Bench Carpenter Name | Role | Phone | + [...] [address] | | | | | [place], [place] | [place], [place] | | | | | [address] | [address] | | | | | [phone] | | | | | | | [...] Office | | [address] [facility] | | | | Visit | | [address] [place] | | | | | | [address] | | | | | | | [...]
--- OUTSIDE RECORDS SUMMARY | ~2020-08-16 | XMS | Encounter Summary ---
Demographics + + + | Address | [address] | | | [place] [address] | + + + | Home Phone [...] [address] | | | | | [place], [place] | [place], [place] | | | | | [address] | [address] | | | | | [phone] | [phone] | | | | | | | [...] | | | Visit | | [address] [place] | | | | | | [address] | | | | | | | [...] + + + + | Hemoglobin | 9.4 (L) | 13.2 - 17.0 [...]
--- OUTSIDE RECORDS SUMMARY | ~2020-08-16 | XMS | Encounter Summary ---
Demographics + + + | Address | [address] | | | [place] [address] | + + + | Home Phone [...] + + | 03/27/ | Virtual | [facility] | Farrukh Acuna MD | CKD (chronic kidney | | 2019 | Office | NEPHROLOGY [place] | [address] | disease) stage 5, | | | Visit | [address] | [address] [place], [place] | GFR less than 15 | | | | [address] | [address] | ml/min (HCC) | | | | [place], [place] | | (Primary Dx); Anemia | | | | [address] | | of chronic kidney | | | | [phone] | | failure, stage 5 | | [...] | | ([facility]); Essential | | | | | [...] before he comes back in 2 m [facility]. documented in this encounter Progress [...] 10/2016 with severe pneumonia, severe ZEKE; needed BEEF TAGGER for ~5 weeks b efore renal function recovery mid 12/2016. He was admitted to [facility] for 3 nights in July 2016 [...] 10/2016 with severe pneumonia, severe ZEKE; needed BEEF TAGGER for ~5 weeks b efore renal function [...] Also: I see no need for acute BEEF TAGGER. I see no need to send him [...] or concerns. Truly yours, Farrukh Acuna MD [facility] This exam was initially conducted via a secure 256-bit AES encrypted bidirectional video se ssion. You have chosen to receive care through the use of telemedicine. Telemedicine enables [facility] care providers at different locations to [...] Office | | [address] [facility] | | | | Visit | | 160 [place], [place] | | | | | | [address] | | | | | | | | +--------+ + + + + documented as of this encounter Visit Diagnoses + + | Diagnosis | + + | CKD (chronic kidney disease) stage 5, GFR less than 15 ml/min ([facility]) - Primary Chronic | | kidney [...]
--- OUTSIDE RECORDS SUMMARY | ~2020-08-16 | XMS | Encounter Summary ---
Demographics + + + | Address | [address] | | | [place] [address] | + + + | Home Phone [...] Team Providers + +------+ + | Care Trolley Car Overhauler Name | Role | Phone | + +------+ + | Rahul Silva MD | PCP | | + +------+ + Encounter Details +--------+ + + + + | Date | Type | Department | Care Team | Description | +--------+ + + + + | 08/20/ | Orders Only | [facility] | Farrukh Acuna MD | Anemia of chronic | | 2019 | | NEPHROLOGY [place] | [address] | renal failure, stage | | | | [address] | [address] [place], [place] | 4 (severe) (HCC) | | | | [address] [place], [place] | [address] | (Primary Dx); Stage | | | | [address] | | 4 chronic kidney | | | | [phone] | | disease (HCC); | | | [...] 2020 | Office | | [address] [facility] | | | | Visit | | [address] [place] | | | | | | [address] | | | | | | | [...]
--- OUTSIDE RECORDS SUMMARY | ~2020-08-16 | XMS | Encounter Summary ---
Demographics + + + | Address | [address] | | | [place] [address] | + + + | Home Phone [...] Team Providers + +------+ + | Care Seat Joiner Name | Role | Phone | + +------+ + | Rahul Silva MD | PCP | | + +------+ + Encounter Details +--------+---------+ + + + | Date | Type | Department | Care Team | Description | +--------+---------+ + + + | 01/10/ | Office | [facility] | Farrukh Acuna MD | CKD (chronic kidney | | 2020 | Visit | NEPHROLOGY [place] | [address] | disease) stage 5, | | | | [address] | [address] [place], [place] | GFR less than 15 | | | | [address] | [address] | ml/min (HCC) | | | | [place], [place] | | (Primary Dx); Anemia | | | | [address] | | of chronic kidney | | | | [phone] | | failure, stage 5 | | [...] 10/2016 with severe pneumonia, severe ZEKE; needed VIDEO SURVEILLANCE TECHNICIAN for ~5 weeks b efore renal function recovery mid 12/2016. He was admitted to [facility] for 3 nights in July [...] 10/2016 with severe pneumonia, severe ZEKE; needed VIDEO SURVEILLANCE TECHNICIAN for ~5 weeks b efore renal [...] Also: I see no need for acute VIDEO SURVEILLANCE TECHNICIAN. I see no need to send him [...] | | | Visit | | [address] [place], [place] | | | | | | [address] | | | | | | | | +--------+ + + + + documented as of this encounter Visit Diagnoses + + | Diagnosis | + + | CKD (chronic kidney disease) stage 5, GFR less than 15 ml/min ([facility]) - Primary Chronic | | [...]
--- OUTSIDE RECORDS SUMMARY | ~2020-08-16 | XMS | Encounter Summary ---
Demographics + + + | Address | [address] | | | [place] [address] | + + + | Home Phone [...] Providers + +------+ + | Care Medical Management Trainer Name | Role | Phone | [...] | | | [address] | [place] [address] | | | | | [place] [address] | | | | | | [phone] | | | +--------+ + + + [...] [address] [facility] [address] | | | | Visit | | [address] [facility] | | | | | | [address] | | | | | | | [...]
--- OUTSIDE RECORDS SUMMARY | ~2020-08-16 | XMS | Encounter Summary ---
Demographics + + + | Address | [address] | | | [place] [address] | + + + | Home Phone [...] Providers + +------+ + | Care Outsole Splicer Name | Role | Phone | + [...] + + | 11/17/ | Telephone | [facility] | Farrukh Acuna MD | Other (Patient call | | 2019 | | NEPHROLOGY [place] | [address] [place] | ) | | | | [address] [place] | [facility] [place] [place] | | | | | [address] [facility] [place] [place] | [address] | | | | | [address] | | | | | | [phone] | | | +--------+ + + + [...] Miscellaneous Notes Telephone Encounter - Trinidad Simon Fire Extinguisher Repairer Inspector - 12/17/2019 10:24 AM PSTDr. A koum aware elephone Encounter - Trinidad Simon Fire Extinguisher Repairer Inspector - 11/17/2019 2:11 PM PS TPatients daughter is concerned because her dad has been having some confusion. She states t hat the ER told her that he may have had a "small stroke". She states that patient was instr ucted to take Asprin after the hospital stay. She would just like to let Dr. Acuna know. El ectronically signed by Trinidad Simon Fire Extinguisher Repairer Inspector at 11/17/2019 2:15 PM PSTdocum ented in [...] | | | Visit | | 160 [place], [place] | | | | | | [address] | | | | | | | | +--------+ + + + + documented as of this encounter Visit Diagnoses Not on filedocumented in this encounter
--- OUTSIDE RECORDS SUMMARY | ~2020-08-16 | XMS | Encounter Summary ---
Demographics + + + | Address | [address] | | | [place] [address] | + + + | Home Phone [...] Team Providers + +------+ + | Care Furrier Designer Name | Role | Phone | + +------+ + | Rahul Silva MD | PCP | | + +------+ + Encounter Details +--------+ + + + + | Date | Type | Department | Care Team | Description | +--------+ + + + + | 12/16/ | Orders Only | [facility] | Conversion | | | 2016 | | NEPHROLOGY [place] | Transaction, | | | | | [address] | Provider Unknown | | | | | [address] [place] | | | | | | [address] | (Fax) | | | | | [phone] | | | +--------+ + + + [...] Office | | [address] [facility] | | | | Visit | | [address] [facility] | | | | | | [address] | | | | | | | [...]
--- OUTSIDE RECORDS SUMMARY | ~2020-08-16 | XMS | Encounter Summary ---
Demographics + + + | Address | [address] | | | [place] [address] | + + + | Home Phone [...] + + + | Author | [facility] | + + + | Organization | [facility] | + + + | Address | Unknown | + + + | Phone | Unavailable | + + + Support + + + + + | Name | Relationship | Address | Phone | + + + + + | Darci Andujar | VALERIE | [place] | | | | | [address] | | + + + + + Care Team Providers + +------+ + | Care Serials Librarian Name | Role | Phone | [...] Vyas | | | | | | [address] | | | | | | [place], [place] | | | | | | [address] | | | | | | [phone] | | | +--------+ + + + [...] as of this encounter Progress Notes Interface, Casting Machine Adjuster In - 01/22/2007 3:04 AM PST [facility] and [address] [address] or June 07, 1997 Pravin VALLES MD [address] [place] [facility] [place] [address] RE:Kavon Andujar MR#:[id number] Valles: I saw Kavon Andujar in the Neurology Clinic today and have enclosed a copy of my note. 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 in January of this year. He also [...] Kavon's case over the telephone. Sincerely, Michelle Lanodn M.D. Dolly Operator, Neurology JINNY/ C: 06/13/97 cc: Alina Moise M.D. Division of Neurosurgery [facility] Robert Carlson M.D. Division of Vascular Surgery [facility] documented in this encounter Plan of Treatment Not on filedocumented as of this encounter Visit Diagnoses Not on filedocumented in this encounter
--- OUTSIDE RECORDS SUMMARY | ~2020-08-16 | XMS | Encounter Summary ---
Demographics + + + | Address | [address] | | | [place] [address] | + + + | Home Phone [...] [place] | | | | | [address] | | + + + + + Care Team Providers + +------+ + | Care School Operations Manager Name | Role | Phone | + +------+ + PCP | Unavailable | + +------+ + Encounter Details +--------+ + + + + | Date | Type | Department | Care Team | Description | +--------+ + + + + | 12/22/ | Results | | Other, Faculty | | | 1997 | Only | | [phone] | | +--------+ + + + + [...] | | | | | | 12/22/96 [id number] hours. | | | | | | [...] | | + +---------+ + + | [facility] DEPARTMENT OF | | [...] | | | | | | | [id number] | | | | | | SPINE, [...]
--- OUTSIDE RECORDS SUMMARY | ~2020-08-16 | XMS | Encounter Summary ---
Demographics + + + | Address | [address] | | | [place] [address] | + + + | Home Phone [...] + + | Author | [facility] | + + + | Organization | [facility] | + + + | Address | Unknown | + + + | Phone | Unavailable | + + + Support + + + + + | Name | Relationship | Address | Phone | + + + + + | Darci Andujar | VALERIE | [place] | | | | | [address] | | + + + + + Care Team Providers + +------+ + | Care Natural Gas Field Processing Supervisor Name | Role | Phone | [...] [id number] | | | | | | [place], [place] | | | | | | [address] | | | | | | [phone] | | | +--------+ + + + [...] + + + + + | [facility] | [address] | [place] [address] | | | PATHOLOGY | [address] [...] + + + + + | [facility] | [address] | [place] [address] | | | PATHOLOGY | [address] [...] + + + + + | [facility] DEPARTMENT OF | [address] | [place] [address] | | | PATHOLOGY | [address] [...] + + + + + | [facility] | [address] | [place] [address] | | | PATHOLOGY | [address] | | | + + + + + documented in this encounter Visit Diagnoses Not on filedocumented in this encounter
--- OUTSIDE RECORDS SUMMARY | ~2020-08-16 | XMS | Encounter Summary ---
Demographics + + + | Address | [address] | | | [place] [address] | + + + | Home Phone [...] Team Providers + +------+ + | Care Dining Room Maid Name | Role | Phone | + +------+ + | Rahul Silva MD | PCP | | + +------+ + Encounter Details +--------+ + + + + | Date | Type | Department | Care Team | Description | +--------+ + + + + | 12/07/ | Orders Only | [facility] | Farrukh Acuna MD | Essential | | 2020 | | NEPHROLOGY [place] | [address] [place] | hypertension | | | | [address] [place] | 160 [place], [place] | (Primary Dx); | | | | [address] [place], [place] | [address] | Secondary | | | | [address] | | hyperparathyroidism | | | | [phone] | | (HCC); Anemia of | | | | | | chronic kidney | | | | | | failure, stage 5 | | | | | | ([facility]); CKD (chronic | | | | | | kidney disease) | | | | | | stage 5, GFR less | | | | | | than 15 ml/min | | | | | | ([facility]); Persistent | | | | | [...] 2019 | Office | | [address] [facility] | | | | Visit | | [address] [place] | | | | | | [address] | | | | | | | [...] | | | | | | ml/min ([facility]) | | | | | | [...] | | | | | | ml/min ([facility]) | | | | | | [...] | | | | | | ml/min ([facility]) | | | | | | [...] | | | | | | ml/min ([facility]) | | | | | | [...] | | | | | | ml/min ([facility]) | | | | | | [...] 5 | | | | | | ([facility]) CKD (chronic | | | | | | kidney disease) | | | | | | stage 5, GFR less | | | | | | than 15 ml/min ([facility]) | | + +------+--------+ + + | Ferritin | Lab | Routin | Essential | Expected: | | | | e | hypertension Anemia | 01/07/2020, Expires: | | | | | of chronic kidney | 12/07/2020 | | | | | failure, stage 5 | | | | | | ([facility]) CKD (chronic | | | | | | kidney disease) | | | | | | stage 5, GFR less | | | | | | than 15 ml/min ([facility]) | | + +------+--------+ + + | Parathyroid Hormone, | Lab | Routin | Essential | Expected: | | Intact | | e | hypertension | 01/07/2020, Expires: | | | | | Secondary | 12/07/2020 | | | | | hyperparathyroidism | | | | | | ([facility]) CKD (chronic | | | | | | kidney disease) | | | | | | stage 5, GFR less | | | | | | than 15 ml/min ([facility]) | | | | | | [...]
--- OUTSIDE RECORDS SUMMARY | ~2020-08-16 | XMS | Encounter Summary ---
Demographics + + + | Address | [address] | | | [place] [address] | + + + | Home Phone [...] + + | Author | [facility] | + + + | Organization | [facility] | + + + | Address | Unknown | + + + | Phone | Unavailable | + + + Support + + + + + | Name | Relationship | Address | Phone | + + + + + | Darci Andujar | VALERIE | [place] | | | | | [address] | | + + + + + Care Team Providers + +------+ + | Care Apartment Leasing Manager Name | Role | Phone | [...] | | | amputation | [place], | [place], [place] | | | | | stump, | [place] [address] | [address] | | | | | unspecified | Phone: | Phone: | | | | | | [phone] | [phone] | | | | | | Fax: | Fax: | | | | | | [phone] | [phone] | +--------+--------+ + + + + Encounter Details +--------+---------+ + + + | Date | Type | Department | Care Team | Description | +--------+---------+ + + + | 04/10/ | Office | [facility] | Seven Reilly MD | Low back pain; | | 2009 | Visit | Pain Center at | [address] | Herniated lumbar | | | | [facility] | [place], [place] | intervertebral disc; | | | | [address] | [address] | Stump pain (HCC) | | | | [facility] | [phone] | | | | | and Healing, | | | | | | Building | | | | | | Floor [place], [place] | | | | | | [address] | | | | | | [phone] | | | +--------+---------+ + + + [...] edited the trainee's note. Seven Reilly MD, [facility], [facility], Mariano Rubio MD - 04/10/2010 12:30 PM PDT [facility] Office Visit 04/10/2010 Kavon Andujar; ; : 1940 Mr. Andujar was referred for pain management consultation by HARDIK COYNE MD [address] [place] [address] Reason for visit: Chief Complaint Patient presents [...] pain. He has been referred to the [facility] for consultation regarding this [...] that the most effective treatments include: medications. AIRPLANE RIGGER Brief Pain Inventory: (ten= worst possible pain [...] and summary of old medical records (source: [employer]), as summarized in the body of the [...] medication. Follow up: none scheduled at [facility]. Mariano Martinez MD Pain Fellow [facility] documented in this encounter [...]
--- OUTSIDE RECORDS SUMMARY | ~2020-08-16 | XMS | Encounter Summary ---
Demographics + + + | Address | [address] | | | [place] [address] | + + + | Home Phone [...] Providers + +------+ + | Care Supervisor Of Instruction Name | Role | Phone | + +------+ + | Rahul Silva MD | PCP | | + +------+ + Encounter Details +--------+ + + + + | Date | Type | Department | Care Team | Description | +--------+ + + + + | 01/13/ | Orders Only | [facility] | Conversion | | | 2016 | | NEPHROLOGY [place] | Transaction, | | | | | [address] | Provider Unknown | | | | | [address] [place] | | | | | | [address] | (Fax) | | | | | [phone] | | | +--------+ + + + [...] | | | Visit | | [facility] | | | | | | [address] | | | | | | | [...] - 1.030 | EXTERNAL | | | [place], | | | LAB | | | [...]
--- OUTSIDE RECORDS SUMMARY | ~2020-08-16 | XMS | Encounter Summary ---
Demographics + + + | Address | [address] | | | [place] [address] | + + + | Home Phone [...] Providers + +------+ + | Care Prop Worker Name | Role | Phone | + +------+ + PCP | Unavailable | + +------+ + Encounter Details +--------+ + + + + | Date | Type | Department | Care Team | Description | +--------+ + + + + | 08/02/ | [facility] | [facility] | Nelson Lutz MD | | | 1991 | Encounter | MED CTR GENERIC OP | [address] [place] | | | | | CONV DEPT [address] | [address] | | | | | [place], | [address] | | | | | [place] [address] | | | | | | [phone] | | | +--------+ + + + [...] [place] | | | | | | [address] | | | | | | | | +--------+ + + + + documented as of this encounter Visit Diagnoses Not on filedocumented in this encounter"
--- OUTSIDE RECORDS SUMMARY | ~2020-08-16 | XMS | Encounter Summary ---
Demographics + + + | Address | [address] | | | [place] [address] | + + + | Home Phone [...] Providers + +------+ + | Care Computer Engineering Technologist Name | Role | Phone | + +------+ + | Rahlu Silva MD | PCP | | + +------+ + Encounter Details +--------+ + + + + | Date | Type | Department | Care Team | Description | +--------+ + + + + | 02/12/ | Orders Only | [facility] | Farrukh Acuna MD | | | 2018 | | NEPHROLOGY [place] | [address] [place] | | | | | [address] [place] | [address] [place], [place] | | | | | 160 [place], [place] | [address] | | | | | [address] | | | | | | [phone] | | | +--------+ + + + [...] 2020 | Office | | [address] [facility] | | | | Visit | | 160 [place], [place] | | | | | | [address] | | | | | | | [...] | | | LAB | | | Iraqi | | | | | + + [...]
--- OUTSIDE RECORDS SUMMARY | ~2020-08-16 | XMS | Encounter Summary ---
Demographics + + + | Address | [address] | | | [place] [address] | + + + | Home Phone [...] + +------+ + | Care Professor Of Communication Arts Name | Role | Phone | + [...] [address] | | | | | [place], [place] | [place], [place] | | | | | [address] | [address] | | | | | [phone] | [phone] | | | | | | | [...] 2020 | Office | | [address] [facility] | | | | Visit | | [address] [place] | | | | | | [address] | | | | | | | [...]
--- OUTSIDE RECORDS SUMMARY | ~2020-08-16 | XMS | Encounter Summary ---
Demographics + + + | Address | [address] | | | [place] [address] | + + + | Home Phone [...] Providers + +------+ + | Care Computer Assistant Name | Role | Phone | + +------+ + | Rahul Silva MD | PCP | | + +------+ + Encounter Details +--------+ + + + + | Date | Type | Department | Care Team | Description | +--------+ + + + + | 03/01/ | Orders Only | [facility] | Conversion | | | 2019 | | NEPHROLOGY [place] | Transaction, | | | | | [address] | Provider Unknown | | | | | [address] [place] | | | | | | [address] | (Fax) | | | | | [phone] | | | +--------+ + + + [...] | | | Visit | | [facility] | | | | | | [address] | | | | | | | [...] - 1.030 | EXTERNAL | | | [place], | | | LAB | | | [...] | | | LAB | | | Somali | | | | | + + [...]
--- OUTSIDE RECORDS SUMMARY | ~2020-08-16 | XMS | Encounter Summary ---
Demographics + + + | Address | [address] | | | [place] [address] | + + + | Home Phone [...] Providers + +------+ + | Care Maintenance Department Technician Name | Role | Phone | + +------+ + | Rahul Silva MD | PCP | | + +------+ + Encounter Details +--------+ + + + + | Date | Type | Department | Care Team | Description | +--------+ + + + + | 03/24/ | Orders Only | [facility] | Farrukh Acuna MD | | | 2017 | | NEPHROLOGY [place] | [address] [place] | | | | | [address] [place] | [address] [place], [place] | | | | | [address] [place], [place] | [address] | | | | | [address] | | | | | | [phone] | | | +--------+ + + + [...] 10/30/ | Virtual | Nephrology | Farrukh Acnua MD | | | 2020 | Office | | [address] [facility] | | | | Visit | | 160 [place], [place] | | | | | | [address] | | | | | | | [...]
--- OUTSIDE RECORDS SUMMARY | ~2020-08-16 | XMS | Encounter Summary ---
Demographics + + + | Address | [address] | | | [place] [address] | + + + | Home Phone [...] Providers + +------+ + | Care Hand Molder And Caster Name | Role | Phone | + [...] [address] | | | | | [place], [place] | [place], [place] | | | | | [address] | [address] | | | | | [phone] | [phone] | | | | | | | [...] | | | Visit | | [address] [place] | | | | | | [address] | | | | | | | [...]
--- OUTSIDE RECORDS SUMMARY | ~2020-08-16 | XMS | Encounter Summary ---
Demographics + + + | Address | [address] | | | [place] [address] | + + + | Home Phone [...] Team Providers + +------+ + | Care Behaviorist Name | Role | Phone | + [...] + + | 09/10/ | Surgery | [facility] | Brian Orosco MD | INSERT[address] | | 2019 | [facility] | [address] | (Right BBF) | | | | OPERATING ROOM [address] | [place], [place] | | | | | [address] | [address] | | | | | [place], [place] | [phone] | | | | | [address] | | | | | | [phone] | | | +--------+---------+ + + + [...] shunt, please contact your ph ysician at [phone]. Discharge instructions for Diagnostic Imaging sedation patients [...] . For any severe symptoms, please call 382 or report to your nearest Emergency Department. Acetaminophen; Hydrocodone tablets or capsules Brand Names: Anexsia, Lorcet, Lorcet HD, Lorcet Plus, Lortab, [place], Verdrocet, Vicodin, Vi codin ES, Vicodin HP, Xodol What is this medicine? ACETAMINOPHEN; HYDROCODONE (a set a ONEL mayur fen; dorian droe KOE done) is [...] information carefully each time. Talk to your direct support worker regarding the use of this medicine in children. Special care may be needed. What side effects may I notice from receiving this medicine? Side effects that you should report to your doctor or health prompt care rn as soon as p ossible: allergic [...] attention (report to your doctor or health prompt care rn if they continue or are bothersome): [...] to an official disposal site. Contact the REPLACED BY [facility] at [phone] [facility] government to [...] this medicine? Tell your doctor or health prompt care rn if your pain does not go [...] cuts, scrapes, or blows. Date Last Reviewed: 12/01/201619997302-0473 [employer]. [address] [place] [address]. All righ ts reserved. This information is [...] and bl ood clots prevention. Prescription for [place] given and side effects were explained. Patient states that he also takes oxycodone at home; patient and his family were educated about taki ng oxycodone or [place] only and not both. OTC Tylenol intake precautions also discussed. Arabella ent and his family verbalized understanding and agreeable. Opportunity to ask questions give n, all questions were answered. Leana Pimentel RN documented in this encounter H&P Notes Brian Orosco MD - 09/10/2019 12:28 PM [facility]: Vascular Surgery Pre-Operative History & Physical Interval Update There have been no significant clinical changes since the completion of the above H&P. Abhijit mancilla's physical assessment showed Normal appearance, alert and oriented x 3 and respiratory eff ort normal Brian Orosco MD 09/10/2019 rBian Mcneal MD - 9 11:00 AM PDT Subjective [...] CV: No peripheral edema, rate regular SKIN: [place], warm, dry without rash/lesion MS: ROM not [...] PM on the day before surgery. The aarbella ent is a cigarette smoker. I advised [...] Orosco MD - 09/10/2019 2:00 PM PDT [facility] Service: Vascular Surgery Operative Note Pre-operative Diagnosis: CKD and need for [facility] dialysis access Post-operative Diagnosis: same Procedure(s): Right brachiocephalic fistula creation Surgeon: Brian Orosco MD Revenue Analyst(s): None Anesthesia: Monitor Anesthesia care and Local [...] 2019 | Office | | [address] [facility] | | | | Visit | | 160 [place], [place] | | | | | | [address] | | | | | | | [...] Testing | 65 - 99 mg/dL | [facility] | | | POC | performed at [facility];[address] | | LABORATORY | | | | [address];[place] | | | | | | [address] | | | | + + + + + + + + | Specimen | + + | | + + + + + + + | Performing | Address | City/State/Zipcode | Phone Number | | Organization | | | | + + + + + | [facility] | [address] | [place] [address] | [phone] | + + + + + POC Glucose (09/10/2019 12:13 PM PDT) + + + + + + | Component | Value | Ref Range | Performed | Pathologist | | | | | At | Signature | + + + + + + | Glucose, | 150 (H)Comment: Testing | 65 - 99 mg/dL | [facility] | | | POC | performed at [facility];[address] | | LABORATORY | | | | [address];[place], [place] | | | | | | [address] | | | | + + + + + + + + | Specimen | + + | | + + + + + + + | Performing | Address | City/State/Zipcode | Phone Number | | Organization | | | | + + + + + | [facility] | [address] | [place] [address] | [phone] | + + + + + documented [...] One week or | | | longer, vynudz-oei-xgxlg use of | | | at least [...]
--- OUTSIDE RECORDS SUMMARY | ~2020-08-16 | XMS | Encounter Summary ---
Demographics + + + | Address | [address] | | | [place] [address] | + + + | Home Phone [...] Team Providers + +------+ + | Care Factory Focus Technician Name | Role | Phone | [...] [address] | | | | | [place], [place] | [place], [place] | | | | | [address] | [address] | | | | | [phone] | [phone] | | | | | | | [...] | | | Visit | | [address] | | | | | | [address] | | | | | | | [...]
--- OUTSIDE RECORDS SUMMARY | ~2020-08-16 | XMS | Clinical Summary ---
Demographics + + + | Address | [address] | | | [place] [address] | + + + | Home Phone [...] Providers + +------+ + | Care Powder Mixer Name | Role | Phone [...] | | ([facility]), CKD (chronic | | | | | | | | kidney disease) | | | | | | | | stage 5, GFR less | | | | | | | | than 15 ml/min ([facility]) | | | | | | | + + + +---------+------+------+-------+ Active Problems + + + | Problem | Noted Date | + + + | CKD (chronic kidney disease) stage 5, GFR less than 15 ml/min | 08/26/2019 | + + + + + | Overview: Added automatically from request for surgery | | [id number] | + + + + + | [...] & Plan: Controlled on current | | kirnplutol81 yr old male with COPD, current heavy [...] Persistent | | 2020 | Office | | | proteinuria (Primary | | | Visit | | | Dx); CKD (chronic | | | | | | kidney disease) | | | | | | stage 5, GFR less | | | | | | than 15 ml/min | | | | | | ([facility]); Anemia of | | | | | | chronic kidney | | | | | | failure, stage 5 | | | | | | ([facility]); Iron | | | | | | [...] | | | ([facility]); Secondary | | | | | | hyperparathyroidism | | | | | | ([facility]); Edema of | | | [...] | | | ([facility]); Anemia of | | | | | | chronic kidney | | | | | | failure, stage 5 | | | | | | ([facility]); CKD (chronic | | | | | | kidney disease) | | | | | | stage 5, GFR less | | | | | | than 15 ml/min | | | | | | ([facility]); Persistent | | | | | | proteinuria | +--------+ + + + + | 08/09/ | Documentati | Nephrology | Alfred, | Other ([facility] | | 2019 | on | | Charlie Abdi | ER note 08/01/20) | | | | | Mail Caller | | +--------+ + + + + | 08/01/ | Documentati | Nephrology | Alfred, | [facility] | | 2019 | on | | Charlie Abdi | order and new | | | | | Mail Caller | procrit order sent | | | [...] | | | ([facility]); Anemia of | | | | | | chronic kidney | | | | | | failure, stage 5 | | | | | | ([facility]); Persistent | | | | | | proteinuria; CKD | | | | | | (chronic kidney | | | | | | disease) stage 5, | | | | | | GFR less than 15 | | | | | | ml/min (HCC) | +--------+ + + + + | 06/08/ | Telephone | Nephrology | Elmira Hoyt | Other | | 2020 | | | A, Medical | (Hospitalization ) | | | | | Mail Caller | | +--------+ + + + + [...] | | | ([facility]); Persistent | | | | | | proteinuria; | | | | | | Essential | | | | | | hypertension; Iron | | | | | | deficiency; | | | | | | Secondary | | | | | | hyperparathyroidism | | | | | | ([facility]); 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, with | | | | | | long-term current | | | | | | use of insulin | | | | | | ([facility]); Edema of | | | | | | lower extremity; | | | | | | Tobacco dependence | | | | | | syndrome | +--------+ + + + + | 06/05/ | Orders Only | Nephrology | Ami Cole, | CKD (chronic kidney | 2019 | | | Transition Manager | disease) stage 5, | | | | | | GFR less than 15 | | | | | | ml/min ([facility]) | | | | | | (Primary Dx); Anemia | | | | | | of chronic kidney | | | | | | failure, stage 5 | | | | | | ([facility]); Persistent | | | | | | proteinuria; | | | | | | Essential | | | | | | hypertension; Iron | | | | | | deficiency | +--------+ + + + + | 05/31/ | Documentati | Nephrology | Ami Cole, | Results | | 2019 | on | | Transition Manager | (interpath-05/29/2020 | | | | | | ) | +--------+ + + + + | 05/18/ | Telephone | Nephrology | Sandy Capellan | Other (ER report | 2019 | | | BAN Valadez | reviewed from | | | | | | Tello's DOS | | | | | | 05/16/20/No changes) | +--------+ + + + + from [...] 2019 | Office | | [address] [facility] | | | | Visit | | [address] [place], [place] | | | | | | [address] | | | | | | | [...] | LABS - EXTERNAL SCAN | | 05/18/2020 | | Results for this | | [...] +--------+ +---------+--------+ | MEDICARE | MEDICA | [id number] | 07/01/20 | [phone] | | Medica | | | RE | | 05-Pre | 5 | | re | | | PART A | | sent | | | | | | AND B | | | | | | + +--------+ +--------+ +---------+--------+ | [employer] | MODA | [id number] | 07/04/20 | [phone] | | Medica | | MEDICAID HMO | HEALTH | | 19-Pre | 1 | | id | | | MDCD | | sent | | | | | | [place] | | | | | | + +--------+ +--------+ +---------+--------+ | [employer] | MODA | [id number] | | [phone] | | Medica | | [...] Self | [birth year] | | [address] | | [place] | al/Fam | | 1940 | [phone] | [place] | | | chula | | | 1 (Home) | [address] | + +--------+ +--------+ + + | Kavon Andujar | Person | Self | [birth year] | | [address] | | [place] | al/Fam | | 1940 | [phone] | [place], [place] | | | chula | | | 1 (Home) | [address] | + +--------+ +--------+ + + | Kavon Andujar | Person | Self | [birth year] | | [address] | | [place] | al/Fam | | 1940 | [phone] | [place], [place] | | | chula | | | 1 (Home) | [address] | + +--------+ +--------+ + + Advance Directives + + + + + | Type | Date Recorded | Patient | Explanation | | | | Fountain Worker | | + + + + + | Power of | | | | | Biological Aide | | | | + + + [...]
--- OUTSIDE RECORDS SUMMARY | ~2020-08-16 | XMS | Encounter Summary ---
Demographics + + + | Address | [address] | | | [place] [address] | + + + | Home Phone [...] Team Providers + +------+ + | Care Vanstone Machine Operator Name | Role | Phone [...] + + | 12/30/ | Telephone | [facility] | Farrukh Acuna MD | Other (Medication | | 2019 | | NEPHROLOGY [place] | [address] [place] | question.) | | | | [address] [place] | [address] [facility] [place] | | | | | [address] [place], [place] | [address] | | | | | [address] | | | | | | [phone] | | | +--------+ + + + [...] Miscellaneous Notes Telephone Encounter - Trinidad Simon Station Cook - 12/30/2019 4:35 PM PSTPatie nts daughter [...] time. Electronically sign ed by Trinidad Simon Station Cook at 12/30/2019 4:40 PM PSTdocumented in this [...] | | | Visit | | [address] [place], [place] | | | | | | [address] | | | | | | | | +--------+ + + + + documented as of this encounter Visit Diagnoses Not on filedocumented in this encounter"
--- OUTSIDE RECORDS SUMMARY | ~2020-08-16 | XMS | Encounter Summary ---
Demographics + + + | Address | [address] | | | [place] [address] | + + + | Home Phone [...] + + | Author | [facility] | + + + | Organization | [facility] | + + + | Address | Unknown | + + + | Phone | Unavailable | + + + Support + + + + + | Name | Relationship | Address | Phone | + + + + + | Darci Andujar | VALERIE | [place] | | | | | [address] | | + + + + + Care Team Providers + +------+ + | Care Cook Jelly Name | Role | Phone | + +------+ + PCP | Unavailable | + +------+ + Encounter Details +--------+ + + + + | Date | Type | Department | Care Team | Description | +--------+ + + + + | 12/28/ | Procedure - | [facility] | Record, Operation | Operative Report | | 1996 | | Center at [facility] [address] | | | | | Transcribed | [address] [facility] | | | | | | for Health and | | | | | | Healing, [address] | | | | | | [place], [place] | | | | | | [address] | | | | | | [phone] | | | +--------+ + + + [...] 12/28/1996 12:00 AM PSTAssociated Order(s): OPERATION RECORD [place] [address], [place] [address] [facility] OPERATION RECORD Med Rec No.: [id number] Date: 12/28/96 Name: Kavon Andujar ATTENDING SURGEON: Robert Carlson M.D. Professor, Vascular wireless architect(S): Nick Noriega M.D. Otr Company Truck Driver, General Surgery POSTOPERATIVE DIAGNOSIS(ES): Left stump osteophyte. OPERATION(S) PERFORMED: Revision of left vfltn-tpw-ywbp amputation and excision of stump osteophyte. SPECIMEN(S) REMOVED: 1. Swab of pseudocapsule for culture. 2. Osteophyte to Pathology. ANESTHESIA: General endotracheal anesthesia. 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 He has developed pain over the stump. A recent CT scan showed an osteophyte growing on the end of the stump. PROCEDURE: The patient was taken to the Operating Room. General endotracheal anesthesia was performed by Anesthesia. The left yubqf-rue-wwjh amputation stump was sterilely prepped and draped [...] Unit in stable condition. Nick Noriega M.D. Otr Company Truck Driver, General Surgery Robert Carlson M.D. Professor, Vascular [...] | + + | 12/28/1996 12:00 AM [facility] | | [facility] | | [address] [place], [place] [address] | | [facility] | | | | OPERATION RECORD | | | | [facility] Rec No.: [id number] Date: 12/28/96 | | | | Name: Kavon Andujar | | | | | | ATTENDING SURGEON: Robert Carlson M.D. | | Professor, | | Vascular Surgery | | | | MATERIAL HANDLER 2ND SHIFT(S): Nick Noriega M.D. | | Otr Company Truck Driver, General Surgery | | | | POSTOPERATIVE DIAGNOSIS(ES): Left stump osteophyte. | | | | OPERATION(S) PERFORMED: Revision of left mfknq-asi-lywi amputation | | and excision of stump osteophyte. | | | | SPECIMEN(S) REMOVED: 1. Swab of pseudocapsule for culture. | | 2. Osteophyte to Pathology. | | | | ANESTHESIA: General endotracheal anesthesia. | | | | INDICATIONS: The patient is a 56-year-old white male who | | is status post left irotz-axz-zpst | | amputation three years ago secondary | | to embolus. He has developed pain over the stump. A recent CT scan showed | | an osteophyte growing on the end of the stump. | | | | PROCEDURE: The patient was taken to the Operating Room. | | General endotracheal anesthesia was | | performed by Anesthesia. The | | left zcinh-tkp-iayw amputation stump was sterilely prepped and draped [...] | | Nick Noriega M.D. | | Otr Company Truck Driver, General Surgery | | Robert Carlson M.D. | | Professor, | | Vascular Surgery | | | | DOMINIC/jc | | | | A | | | | cc: | | | + + documented in this encounter Visit Diagnoses Not on filedocumented in this encounter"
--- OUTSIDE RECORDS SUMMARY | ~2020-08-16 | XMS | Encounter Summary ---
Demographics + + + | Address | [address] | | | [place] [address] | + + + | Home Phone [...] Providers + +------+ + | Care Hand Screen Printer Name | Role | Phone | [...] [address] | | | | | [place], [place] | [place], [place] | | | | | [address] | [address] | | | | | [phone] | [phone] | | | | | | | [...] | | | Visit | | [address] [place] | | | | | | [address] | | | | | | | [...]
--- OUTSIDE RECORDS SUMMARY | ~2020-08-16 | XMS | Encounter Summary ---
Demographics + + + | Address | [address] | | | [place] [address] | + + + | Home Phone [...] Team Providers + +------+ + | Care Couture Dressmaker Name | Role | Phone | + +------+ + | Rahul Silva MD | PCP | | + +------+ + Encounter Details +--------+ + + + + | Date | Type | Department | Care Team | Description | +--------+ + + + + | 07/18/ | Orders Only | [facility] | Conversion | | | 2015 | | NEPHROLOGY [place] | Transaction, | | | | | [address] [facility] | Provider Unknown | | | | | [place] [address] | [phone] | | | | | [address] | | | | | | [phone] | | | +--------+ + + + [...] 2020 | Office | | [address] [facility] [place] | | | | Visit | | [address] [place] | | | | | | [address] | | | | | | | [...] - 1.030 | EXTERNAL | | | [place], | | | LAB | | | [...] | | | LAB | | | Turkmen | | | | | + + [...]
--- OUTSIDE RECORDS SUMMARY | ~2020-08-16 | XMS | Encounter Summary ---
Demographics + + + | Address | [address] | | | [place] [address] | + + + | Home Phone [...] Team Providers + +------+ + | Care Airport Shuttle Driver Name | Role | Phone | + +------+ + | Rahul Silva MD | PCP | | + +------+ + Encounter Details +--------+ + + + + | Date | Type | Department | Care Team | Description | +--------+ + + + + | 01/23/ | Orders Only | [facility] | Collin Mirza, | | | 2015 | | NEPHROLOGY [place] | CHECK WEIGHER [address] | | | | | [address] [place] | [address] | | | | | [address] [place], [place] | [place] | | | | | [address] | [address] | | | | | [phone] | [phone] | | | | | | | [...] [place] | | | | | | [address] [...]
--- OUTSIDE RECORDS SUMMARY | ~2020-08-16 | XMS | Encounter Summary ---
Demographics + + + | Address | [address] | | | [place] [address] | + + + | Home Phone [...] Providers + +------+ + | Care Manufacturing Production Technician Name | Role | Phone | [...] | Transaction, | | | | | [place], [place] | Provider Unknown | | | | | [address] | [phone] | | | | | [phone] | | | +--------+ + + + [...] 2020 | Office | | [address] [facility] | | | | Visit | | 160 [place], [place] | | | | | | [address] | | | | | | | [...]
--- OUTSIDE RECORDS SUMMARY | ~2020-08-16 | XMS | Encounter Summary ---
Demographics + + + | Address | [address] | | | [place] [address] | + + + | Home Phone [...] + + + | Author | [facility] | + + + | Organization | [facility] | + + + | Address | Unknown | + + + | Phone | Unavailable | + + + Support + + + + + | Name | Relationship | Address | Phone | + + + + + | Darci Zavala | [place]ERIE | [place] | | | | | [address] | | + + + + + Care Team Providers + +------+ + | Care Livestock Dealer Name | Role | Phone | + [...] Vyas | | | | | | [address] | | | | | | [place], [place] | | | | | | [address] | | | | | | [phone] | | | +--------+ + + + [...] as of this encounter Progress Notes Interface, Smoking Pipe Liner In - 02/17/2007 3:02 AM PDT [facility] and [place] [address] [place], [place] [address] or August 05, 1996 RUBIA VALLES MD [address] [facility] [address] RE:PORFIRIO ZAVALA MR#:[id number] Valles: Mr. Porfirio Zavala returned to the [facility] today for a followup visit. As you recall, he is a 56-year-old man with stump pain and phantom pain secondary to left leg uulfk-ksx-hwrp amputation. Mr. Zavala has failed numerous femoral nerve blocks, sciatic nerve blocks, and spinal cord blocks, and was at one time enrolled in the [facility]. Mr. Zavala's pain is currently [...] dictating for: Alina Moise M.D. Professor and Building Equipment Operator, Division of Neurosurgery MARYANA/sajan cc: Seven Khan, Ph.D. Clinical Psychologist-Neuropsychologist documented in this encounter Plan of Treatment Not on filedocumented as of this encounter Visit Diagnoses Not on filedocumented in this encounter"
--- OUTSIDE RECORDS SUMMARY | ~2020-08-16 | XMS | Encounter Summary ---
Demographics + + + | Address | [address] | | | [place] [address] | + + + | Home Phone [...] Providers + +------+ + | Care Associate Scientist Name | Role | Phone | + +------+ + | Rahul Silva MD | PCP | | + +------+ + Encounter Details +--------+ + + + + | Date | Type | Department | Care Team | Description | +--------+ + + + + | 12/19/ | Orders Only | [facility] | Conversion | | | 2016 | | NEPHROLOGY [place] | Transaction, | | | | | [address] | Provider Unknown | | | | | [address] [place] | | | | | | [address] | (Fax) | | | | | [phone] | | | +--------+ + + + [...] Visit | | [address] [facility] | | | | | | [address] | | | | | | | [...]
--- OUTSIDE RECORDS SUMMARY | ~2020-08-16 | XMS | Encounter Summary ---
Demographics + + + | Address | [address] | | | [place] [address] | + + + | Home Phone [...] Providers + +------+ + | Care Wheel Lacer And Truer Name | Role | Phone | + +------+ + | Rahul Silva MD | PCP | | + +------+ + Encounter Details +--------+ + + + + | Date | Type | Department | Care Team | Description | +--------+ + + + + | 10/28/ | Orders Only | [facility] | Conversion | | | 2016 | | NEPHROLOGY [place] | Transaction, | | | | | [address] | Provider Unknown | | | | | [address] [place] | | | | | | [address] | (Fax) | | | | | [phone] | | | +--------+ + + + [...] | | | Visit | | [address] [facility] | | | | | | [address] | | | | | | | [...]
--- OUTSIDE RECORDS SUMMARY | ~2020-08-16 | XMS | Encounter Summary ---
Demographics + + + | Address | [address] | | | [place] [address] | + + + | Home Phone [...] Providers + +------+ + | Care Environmental Consultant Name | Role | Phone | + +------+ + | Rahul Silav MD | PCP | | + +------+ + Encounter Details +--------+ + + + + | Date | Type | Department | Care Team | Description | +--------+ + + + + | 07/18/ | Orders Only | [facility] | Conversion | | | 2015 | | NEPHROLOGY [place] | Transaction, | | | | | [address] [facility] | Provider Unknown | | | | | [place] [address] | [phone] | | | | | [address] | | | | | | [phone] | | | +--------+ + + + [...] 2020 | Office | | [address] [facility] [place] | | | | Visit | | [address] [place] | | | | | | [address] | | | | | | | [...] - 1.030 | EXTERNAL | | | [place], | | | LAB | | | [...]
--- OUTSIDE RECORDS SUMMARY | ~2020-08-16 | XMS | Encounter Summary ---
Demographics + + + | Address | [address] | | | [place] [address] | + + + | Home Phone [...] Team Providers + +------+ + | Care Hardware Design Engineer Name | Role | Phone [...] + + | 05/04/ | Refill | [facility] | Farrukh Acuna MD | Medication Refill | | 2020 | | NEPHROLOGY [place] | [address] [place] | | | | | [address] | [address] [place], [place] | | | | | [address] | [address] | | | | | [place], [place] | | | | | | [address] | | | | | | [phone] | | | +--------+--------+ + + + [...] | | | Visit | | [address] [place], [place] | | | | | | [address] | | | | | | | | +--------+ + + + + documented as of this encounter Visit Diagnoses + + | Diagnosis | + + | Essential hypertension - Primary Unspecified essential hypertension | + + | Anemia of chronic kidney failure, stage 5 ([facility]) | + + | Persistent proteinuria Proteinuria | + + | CKD (chronic kidney disease) stage 5, GFR less than 15 ml/min ([facility]) Chronic kidney | | disease, Stage V | + + documented in this encounter"
--- OUTSIDE RECORDS SUMMARY | ~2020-08-16 | XMS | Encounter Summary ---
Demographics + + + | Address | [address] | | | [place] [address] | + + + | Home Phone [...] Team Providers + +------+ + | Care Liquified Natural Gas Technician Name | Role | Phone | + +------+ + | Rahul Silva MD | PCP | | + +------+ + Encounter Details +--------+ + + + + | Date | Type | Department | Care Team | Description | +--------+ + + + + | 10/10/ | Orders Only | [facility] | Farrukh Acuna MD | | | 2013 | | NEPHROLOGY [place] | [address] [place] | | | | | [address] [place] | 160 [place], [place] | | | | | [address] [place], [place] | [address] | | | | | [address] | | | | | | [phone] | | | +--------+ + + + [...] HOSPITAL[facility]HA | | | | | | [address] | | | | | | | [...] + +---------+ + + External Lab: DUNIA (10/10/2014 12:00 AM PST) + + + [...] | | | LAB | | | Indian | | | | | + + [...]
--- OUTSIDE RECORDS SUMMARY | ~2020-08-16 | XMS | Encounter Summary ---
Demographics + + + | Address | [address] | | | [place] [address] | + + + | Home Phone [...] Team Providers + +------+ + | Care Singeing Torch Operator Name | Role | Phone | [...] | | [address] [place] | [place] [address] | | | | | [place] [address] | | | | | | [phone] | | | +--------+ + + + [...] | | | Visit | | [address] [place] | | | | | | [address] | | | | | | | [...]
--- OUTSIDE RECORDS SUMMARY | ~2020-08-16 | XMS | Encounter Summary ---
Demographics + + + | Address | [address] | | | [place] [address] | + + + | Home Phone [...] Team Providers + +------+ + | Care Toolmaker Helper Name | Role | Phone | [...] + + | 10/04/ | Documentati | [facility] | Simon, | Results (09/30/19) | | 2019 | on | NEPHROLOGY [place] | [facility] | | | | | [address] | Rail Doweling Machine Operator | | | | | [address] | | | | | | [place] | | | | | | [address] | | | | | | [phone] | | | +--------+ + + + [...] | | | Visit | | [address] [place], [place] | | | | | | [address] | | | | | | | [...]
--- OUTSIDE RECORDS SUMMARY | ~2020-08-16 | XMS | Encounter Summary ---
Demographics + + + | Address | [address] | | | [place] [address] | + + + | Home Phone [...] Team Providers + +------+ + | Care Appliance Painter And Refinisher Name | Role | Phone | + +------+ + | Rahul Silva MD | PCP | | + +------+ + Encounter Details +--------+ + + + + | Date | Type | Department | Care Team | Description | +--------+ + + + + | 04/10/ | Orders Only | [facility] | Conversion | | | 2014 | | NEPJUANCARLOS GIBSON | Transaction, | | | | | [address] | Provider Unknown | | | | | [address] [place], [place] | [phone] | | | | | [address] | | | | | | [phone] | | | +--------+ + + + [...] [place] | | | | | | [address] | | | | | | | [...]
--- OUTSIDE RECORDS SUMMARY | ~2020-08-16 | XMS | Encounter Summary ---
Demographics + + + | Address | [address] | | | [place] [address] | + + + | Home Phone [...] Team Providers + +------+ + | Care Provider Network Analyst Name | Role | Phone | + +------+ + | Rahul Silva MD | PCP | | + +------+ + Encounter Details +--------+ + + + + | Date | Type | Department | Care Team | Description | +--------+ + + + + | 02/24/ | Orders Only | [facility] | Conversion | | | 2016 | | NEPHROLOGY [place] | Transaction, | | | | | [address] | Provider Unknown | | | | | [address] [place] | | | | | | [address] | (Fax) | | | | | [phone] | | | +--------+ + + + [...] | Visit | | [address] [facility] | | | | | | [address] | | | | | | | [...] - 1.030 | EXTERNAL | | | [place], | | | LAB | | | [...] | | | LAB | | | Vincent[place] | | | | | + + [...]
--- OUTSIDE RECORDS SUMMARY | ~2020-08-16 | XMS | Encounter Summary ---
Demographics + + + | Address | [address] | | | [place] [address] | + + + | Home Phone [...] Providers + +------+ + | Care Police Cadet Name | Role | Phone | + [...] [address] | | | | | [place], [place] | [place], [place] | | | | | [address] | [address] | | | | | [phone] | [phone] | | | | | | | [...] | | | Visit | | [address] [place] | | | | | | [address] | | | | | | | [...]
--- OUTSIDE RECORDS SUMMARY | ~2020-08-16 | XMS | Encounter Summary ---
Demographics + + + | Address | [address] | | | [place] [address] | + + + | Home Phone [...] Team Providers + +------+ + | Care Rib Chopper Name | Role | Phone | + [...] | | | [address] | [place] [address] | | | | | [place] [address] | | | | | | [phone] | | | +--------+ + + + [...] HOSPITAL[facility] | | | | | | [address] | | | | | | | [...]
--- OUTSIDE RECORDS SUMMARY | ~2020-08-16 | XMS | Encounter Summary ---
Demographics + + + | Address | [address] | | | [place] [address] | + + + | Home Phone [...] Providers + +------+ + | Care Fishing Lure Assembler Name | Role | Phone | [...] + + | 04/06/ | Telephone | [facility] | Farrukh Acuna MD | Other (IV feraheme | | 2020 | | NEPHROLOGY [place] | [address] [place] | and aranesp | | | | [address] [place] | [address] [place] | question) | | | | [address] [facility] [place] | [address] | | | | | [address] | | | | | | [phone] | | | +--------+ + + + [...] Miscellaneous Notes Telephone Encounter - Trinidad [facility] - 04/06/2020 3:14 PM PDTSt. A IV [...] | | | Visit | | [address] [place], [place] | | | | | | [address] | | | | | | | | +--------+ + + + + documented as of this encounter Visit Diagnoses Not on filedocumented in this encounter"
--- OUTSIDE RECORDS SUMMARY | ~2020-08-16 | XMS | Encounter Summary ---
Demographics + + + | Address | [address] | | | [place] [address] | + + + | Home Phone [...] Providers + +------+ + | Care Stock Preparer Name | Role | Phone | + +------+ + PCP | Unavailable | + +------+ + Encounter Details +--------+ + + + + | Date | Type | Department | Care Team | Description | +--------+ + + + + | 05/28/ | Hospital | [facility] | Elisabeth, | CORON ATHEROSCL | | 2002 - | Encounter | [facility] [place] | MD Joshua | [place] [facility] | | | | CLINICAL DECISION | [address] [place] | | | 05/29/ | | [address] | [address] [place], [place] | | | 2002 | | [place], [place] | [address] | | | | | [address] | [phone] | | | | | [phone] | | | +--------+ + + + [...] [place] | | | | | | [address] | | | | | | | | +--------+ + + + + documented as of this encounter Visit Diagnoses + + | Diagnosis | + + | Coronary atherosclerosis of [place] coronary artery | + + documented in this encounter"
--- OUTSIDE RECORDS SUMMARY | ~2020-08-16 | XMS | Encounter Summary ---
Demographics + + + | Address | [address] | | | [place] [address] | + + + | Home Phone [...] Providers + +------+ + | Care Design Director Name | Role | Phone | + +------+ + | Rahul Silva MD | PCP | | + +------+ + Encounter Details +--------+ + + + + | Date | Type | Department | Care Team | Description | +--------+ + + + + | 02/16/ | Abstract | [facility] | Jose L Magana, | PAOLO (obstructive | | 2013 | | PULMONARY [address] | MD [address] | sleep apnea) | | | | [place] Tonya Castaneda, | [address] | (Primary Dx); COPD | | | | [place] [address] | [address] | (chronic obstructive | | | | [phone] | | pulmonary disease) | | | | | | ([facility]) | +--------+ + + + [...] | | | Visit | | [facility] | | | | | | [address] | | | | | | | [...]
--- OUTSIDE RECORDS SUMMARY | ~2020-08-16 | XMS | Encounter Summary ---
Demographics + + + | Address | [address] | | | [place] [address] | + + + | Home Phone [...] Team Providers + +------+ + | Care Housekeeping Attendant Name | Role | Phone | + +------+ + | Rahul Silva MD | PCP | | + +------+ + Encounter Details +--------+ + + + + | Date | Type | Department | Care Team | Description | +--------+ + + + + | 07/26/ | Orders Only | [facility] | Farrukh Acuna MD | Chronic kidney | | 2019 | | NEPRHOLOGY [place] | [address] | disease, stage IV | | | | [address] | [address] [place], [place] | (severe) (HCC); | | | | [address] [place], [place] | [address] | Persistent | | | | [address] | | proteinuria; | | | | [phone] | | Secondary | | | | [...] | | Visit | | [address] [place], [place] | | | | | | [address] | | | | | | | [...]
--- OUTSIDE RECORDS SUMMARY | ~2020-08-16 | XMS | Encounter Summary ---
Demographics + + + | Address | [address] | | | [place] [address] | + + + | Home Phone [...] + +------+ + | Care Front End Web Designer Name | Role | Phone [...] [address] | | | | | [place], [place] | [place], [place] | | | | | [address] | [address] | | | | | [phone] | | | | | | | [...] | | | Visit | | [address] [place] | | | | | | [address] | | | | | | | [...]
--- OUTSIDE RECORDS SUMMARY | ~2020-08-16 | XMS | Encounter Summary ---
Demographics + + + | Address | [address] | | | [place] [address] | + + + | Home Phone [...] Team Providers + +------+ + | Care Echocardiography Radiology Technologist Name | Role | Phone | [...] + + | 08/09/ | Documentati | [facility] | Simon, | Other ([employer] | | 2019 | on | NEPHROLOGY [place] | Charlie Abdi | ER note 08/01/20) | | | | [address] | Pipeliner | | | | | [address] [facility] [place] | | | | | | [address] | | | | | | [phone] | | | +--------+ + + + [...] Office | | [address] [facility] [place] | | | | Visit | | [address] [place] | | | | | | [address] | | | | | | | [...]
--- OUTSIDE RECORDS SUMMARY | ~2020-08-16 | XMS | Encounter Summary ---
Demographics + + + | Address | [address] | | | [place] [address] | + + + | Home Phone [...] Team Providers + +------+ + | Care Ocean Export Coordinator Name | Role | Phone | [...] | | | [address] [place] | [place] [address] | | | | | [place] [address] | | | | | | [phone] | | | +--------+ + + + [...] | [address] [facility] [place] | | | | Visit | | [address] [facility] | | | | | | [address] | | | | | | | [...]
--- OUTSIDE RECORDS SUMMARY | ~2020-08-16 | XMS | Encounter Summary ---
Demographics + + + | Address | [address] | | | [place] [address] | + + + | Home Phone [...] Team Providers + +------+ + | Care Paid Search Marketing Analyst Name | Role | Phone | [...] + + | 08/10/ | Telephone | [facility] | Brian Orosco MD | Other (orders ) | | 2019 | | VASCULAR SURGERY | [address] | | | | | [address] [place] | [place], [place] | | | | | [place], [place] | [address] | | | | | [address] | [phone] | | | | | [phone] | | | +--------+ + + + [...] transfer the call to a rolf munoz hardwood floor sander was caller made aware that if at [...] 2019 | Office | | [address] [facility] | | | | Visit | | 160 [place], [place] | | | | | | [address] | | | | | | | | +--------+ + + + + documented as of this encounter Visit Diagnoses Not on filedocumented in this encounter"
--- OUTSIDE RECORDS SUMMARY | ~2020-08-16 | XMS | Encounter Summary ---
Demographics + + + | Address | [address] | | | [place] [address] | + + + | Home Phone [...] Providers + +------+ + | Care Bindery Manager Name | Role | Phone | [...] | Transaction, | | | | | [place], [place] | Provider Unknown | | | | | [address] | [phone] | | | | | [phone] | | | +--------+ + + + [...] | | | Visit | | [address] [place], [place] | | | | | | [address] | | | | | | | [...]
--- OUTSIDE RECORDS SUMMARY | ~2020-08-16 | XMS | Encounter Summary ---
Demographics + + + | Address | [address] | | | [place] [address] | + + + | Home Phone [...] Providers + +------+ + | Care Director Emergency Services Name | Role | Phone | [...] | Transaction, | | | | | [place], [place] | Provider Unknown | | | | | [address] | [phone] | | | | | [phone] | | | +--------+ + + + [...] | | | Visit | | [address] [place], [place] | | | | | | [address] | | | | | | | [...]
--- OUTSIDE RECORDS SUMMARY | ~2020-08-16 | XMS | Encounter Summary ---
Demographics + + + | Address | [address] | | | [place] [address] | + + + | Home Phone [...] Providers + +------+ + | Care Cleaning Validation Consultant Name | Role | Phone | [...] + + | 09/01/ | Telephone | [facility] | Brian Orosco MD | Advice Only | | 2019 | | VASCULAR SURGERY | [address] | (surgery) | | | | [address] [place] | [place], [place] | | | | | [place], [place] | [address] | | | | | [address] | [phone] | | | | | [phone] | | | +--------+ + + + [...] transfer the call to a p rovidixie sheet metal layout worker was caller made aware that if [...] | | | Visit | | [address] [place], [place] | | | | | | [address] | | | | | | | | +--------+ + + + + documented as of this encounter Visit Diagnoses Not on filedocumented in this encounter"
--- OUTSIDE RECORDS SUMMARY | ~2020-08-16 | XMS | Encounter Summary ---
Demographics + + + | Address | [address] | | | [place] [address] | + + + | Home Phone [...] Providers + +------+ + | Care Audio Technician Name | Role | Phone | + +------+ + | Rahul Silva MD | PCP | | + +------+ + Encounter Details +--------+ + + + + | Date | Type | Department | Care Team | Description | +--------+ + + + + | 05/27/ | Orders Only | [facility] | Conversion | | | 2018 | | [facility] | Transaction, | | | | | [address] | Provider Unknown | | | | | [address] [place], [place] | [phone] | | | | | [address] | (Fax) | | | | | [phone] | | | +--------+ + + + [...] 2019 | Office | | [address] [facility] | | | | Visit | | [address] [place] | | | | | | [address] | | | | | | | [...]
--- OUTSIDE RECORDS SUMMARY | ~2020-08-16 | XMS | Encounter Summary ---
Demographics + + + | Address | [address] | | | [place] [address] | + + + | Home Phone [...] Providers + +------+ + | Care Clinical Business Manager Name | Role | Phone | [...] | 09/03/ | Telephone | [facility] | Simon, | Lab Results | | 2019 | | NEPHROLOGY [place] | [facility] | | | | | [address] [place] | Rail Equipment Operator | | | | | [address] [place] | | | | | | [address] | | | | | | [phone] | | | +--------+ + + + [...] Miscellaneous Notes Telephone Encounter - Trinidad Simon, Account Retention Representative - 09/03/2019 12:57 PM PDTSpoke to patient in regards to lab results. She verbalized understanding, I did not have the [facility] copy of the labs but I had them pulled up on [facility]. She insisted on knowing the results and [...] this time.Electr onically signed by Trinidad Simon Account Retention Representative at 09/03/2019 4:26 PM PDTTelephone Encounter - [...] be nice. Please call them back at [phone]. Detailed message may be left on phone: Yes Next OV: 10/04/19 If this is a symptom based call and you were unable to immediately transfer the call to [facility] staff, was caller made aware that if at any timehefeels it is an emergency they should call 911 or go to the nearest emergency room? Yes Is automotive parts interpreter needed: no do cumented in this encounter [...] | | Visit | | [address] [place] | | | | | | [address] | | | | | | | | +--------+ + + + + documented as of this encounter Visit Diagnoses Not on filedocumented in this encounter"
--- OUTSIDE RECORDS SUMMARY | ~2020-08-16 | XMS | Encounter Summary ---
Demographics + + + | Address | [address] | | | [place] [address] | + + + | Home Phone [...] Team Providers + +------+ + | Care Metabolic Specialist Name | Role | Phone | [...] + + | 10/04/ | Documentati | [facility] | Simon, | Results (09/30/19) | | 2019 | on | NEPHROLOGY BASSEM | [place] [facility] | | | | | [address] | Business Enterprise Officer | | | | | [address] | | | | | | [place] | | | | | | [address] | | | | | | [phone] | | | +--------+ + + + [...] | | | Visit | | [address] [place], [place] | | | | | | [address] | | | | | | | [...]
--- OUTSIDE RECORDS SUMMARY | ~2020-08-16 | XMS | Encounter Summary ---
Demographics + + + | Address | [address] | | | [place] [address] | + + + | Home Phone [...] Providers + +------+ + | Care Telephone Repairer Name | Role | Phone | + +------+ + | Rahul Silva MD | PCP | | + +------+ + Encounter Details +--------+ + + + + | Date | Type | Department | Care Team | Description | +--------+ + + + + | 08/19/ | Orders Only | [facility] | Farrukh Acuna MD | | | 2018 | | NEPHROLOGY [place] | [address] [place] | | | | | [address] [place] | [address] [place], [place] | | | | | [address] [place], [place] | [address] | | | | | [address] | | | | | | [phone] | | | +--------+ + + + [...] 2020 | Office | | [address] [facility] | | | | Visit | | 160 [place], [place] | | | | | | [address] | | | | | | | [...]
--- OUTSIDE RECORDS SUMMARY | ~2020-08-16 | XMS | Encounter Summary ---
Demographics + + + | Address | [address] | | | [place] [address] | + + + | Home Phone [...] Team Providers + +------+ + | Care Munitions Handler Supervisor Name | Role | Phone | [...] [address] | | | | | [place], [place] | [place], [place] | | | | | [address] | [address] | | | | | [phone] | | | | | | | [...] 2020 | Office | | [address] [facility] | | | | Visit | | [address] [place] | | | | | | [address] [...]
--- OUTSIDE RECORDS SUMMARY | ~2020-08-16 | XMS | Encounter Summary ---
Demographics + + + | Address | [address] | | | [place] [address] | + + + | Home Phone [...] Team Providers + +------+ + | Care Beam Sealer Name | Role | Phone | + +------+ + | Rahul Silva MD | PCP | | + +------+ + Encounter Details +--------+ + + + + | Date | Type | Department | Care Team | Description | +--------+ + + + + | 09/17/ | Orders Only | [facility] | Collin Mirza, | | | 2016 | | NEPHROLOGY [place] | AUTOMATIC OPERATOR [address] | | | | | [address] [place] | [address] | | | | | [address] [place], [place] | [place] | | | | | [address] | [address] | | | | | [phone] | [phone] | | | | | | | [...] Office | | [address] [facility] | | | | Visit | | [address] [place] | | | | | | [address] | | | | | | | [...]
--- OUTSIDE RECORDS SUMMARY | ~2020-08-16 | XMS | Encounter Summary ---
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 [place] | | | | Visit | | [address] [place] | | | | | | [address] | | | | | | | [...] | | use of insulin ([facility]) | | | | | | Anemia of chronic | | | | | | kidney failure, | | | | | | stage 5 ([facility]) CKD | | | | | [...] | | use of insulin ([facility]) | | | | | | Anemia of chronic | | | | | | kidney failure, | | | | | | stage 5 ([facility]) CKD | | | | | [...] | | use of insulin ([facility]) | | | | | | Anemia of chronic | | | | | | kidney failure, | | | | | | stage 5 ([facility]) CKD | | | | | [...] | | use of insulin ([facility]) | | | | | | Anemia of chronic | | | | | | kidney failure, | | | | | | stage 5 ([facility]) CKD | | | | | [...] | | use of insulin ([facility]) | | | | | | Anemia of chronic | | | | | | kidney failure, | | | | | | stage 5 ([facility]) CKD | | | | | [...] | | use of insulin ([facility]) | | | | | | Anemia of chronic | | | | | | kidney failure, | | | | | | stage 5 ([facility]) CKD | | | | | [...] | | use of insulin ([facility]) | | | | | | Anemia of chronic | | | | | | kidney failure, | | | | | | stage 5 ([facility]) CKD | | | | | [...] | | use of insulin ([facility]) | | | | | | Anemia of chronic | | | | | | kidney failure, | | | | | | stage 5 ([facility]) CKD | | | | | [...] | | use of insulin ([facility]) | | | | | | Anemia of chronic | | | | | | kidney failure, | | | | | | stage 5 ([facility]) CKD | | | | | [...] long-term current use of | | insulin ([facility]) | + + | Anemia of chronic kidney failure, stage 5 ([facility]) | + + | CKD (chronic kidney disease) stage 5, GFR less than 15 ml/min ([facility]) Chronic kidney | | disease, Stage V | + + | Persistent proteinuria Proteinuria | + + documented in this encounter"
--- OUTSIDE RECORDS SUMMARY | ~2020-08-16 | XMS | Encounter Summary ---
Demographics + + + | Address | [address] | | | [place] [address] | + + + | Home Phone [...] Team Providers + +------+ + | Care Inoculator Name | Role | Phone | + [...] + + | 08/25/ | Telephone | [facility] | Brian Orosco MD | New Patient (08/26 | | 2019 | | VASCULAR SURGERY | [address] | appointment) | | | | [address] [place] | [place], [place] | | | | | [place], [place] | [address] | | | | | [address] | [phone] | | | | | [phone] | | | +--------+ + + + [...] Miscellaneous Notes Telephone Encounter - Megan Blackwell General Manager [employer] - 08/25/2019 2:08 PM PDTConfirmed appointment for tomorrow. Electronically signed by Megan N Ross, General Manager [employer] at 08/25 2:09 PM PDTTelephone Encounter - [...] transfer the call to a damian munoz residence life coordinator was caller made aware that if [...] | | | Visit | | [address] [place], [place] | | | | | | [address] | | | | | | | | +--------+ + + + + documented as of this encounter Visit Diagnoses Not on filedocumented in this encounter"
--- OUTSIDE RECORDS SUMMARY | ~2020-08-16 | XMS | Encounter Summary ---
Demographics + + + | Address | [address] | | | [place] [address] | + + + | Home Phone [...] Team Providers + +------+ + | Care Road Equipment Operator Name | Role | Phone | + +------+ + | Rahul Silva MD | PCP | | + +------+ + Encounter Details +--------+ + + + + | Date | Type | Department | Care Team | Description | +--------+ + + + + | 11/10/ | Orders Only | [facility] | Conversion | | | 2016 | | NEPHROLOGY [place] | Transaction, | | | | | [address] | Provider Unknown | | | | | [address] [place] | | | | | | [address] | (Fax) | | | | | [phone] | | | +--------+ + + + [...] | | | Visit | | [facility] | | | | | | [address] | | | | | | | [...]
--- OUTSIDE RECORDS SUMMARY | ~2020-08-16 | XMS | Encounter Summary ---
Demographics + + + | Address | [address] | | | [place] [address] | + + + | Home Phone [...] Team Providers + +------+ + | Care Prototype Technician Name | Role | Phone | + +------+ + PCP | Unavailable | + +------+ + Encounter Details +--------+ + + + + | Date | Type | Department | Care Team | Description | +--------+ + + + + | 07/18/ | [facility] | [facility] | Nelson Lutz MD | | | 2002 | Encounter | MED CTR GENERIC OP | [address] [place] [place] | | | | | CONV DEPT [address] | [address] | | | | | [place], | [address] | | | | | [place] [address] | | | | | | [phone] | | | +--------+ + + + [...] [place] | | | | | | [address] | | | | | | | | +--------+ + + + + documented as of this encounter Visit Diagnoses Not on filedocumented in this encounter"
--- OUTSIDE RECORDS SUMMARY | ~2020-08-16 | XMS | Encounter Summary ---
Demographics + + + | Address | [address] | | | [place] [address] | + + + | Home Phone [...] [place] | | | | | [address] | | + + + + + Care Team Providers + +------+ + | Care Museum Security Chief Name | Role | Phone | + +------+ + | Rahul Silva MD | PCP | | + +------+ + Encounter Details +--------+ + + + + | Date | Type | Department | Care Team | Description | +--------+ + + + + | 12/28/ | Results | Registration [id number] | | | | 1996 | Only | [address] | | | | | | Rene Mailcode: [id number] | | | | | | [place], [place] | | | | | | [address] | | | | | | [phone] | | | +--------+ + + + [...] + + + + + | [facility] | [address] | [place] [address] | | | PATHOLOGY | [address] | | | + + + + + SURGICAL PATHOLOGY (12/28/1996) + + + + + + | Component | Value | Ref Range | Performed | Pathologist | | | | | At | Signature | + + + + + + | SURGICAL | SOURCE OF SPECIMEN: SEE | | [facility] | | | PATHOLOGY | RESULTS | [...] | + + + + + | [facility] | [address] | [place] [address] | | | PATHOLOGY | [address] | | | + + + + + documented in this encounter Visit Diagnoses Not on filedocumented in this encounter"
--- OUTSIDE RECORDS SUMMARY | ~2020-08-16 | XMS | Encounter Summary ---
Demographics + + + | Address | [address] | | | [place] [address] | + + + | Home Phone [...] Providers + +------+ + | Care E Merchant Name | Role | Phone | + [...] [address] | | | | | [place], [place] | [place], [place] | | | | | [address] | [address] | | | | | [phone] | | | | | | | [...] | | | Visit | | [address] [place] | | | | | | [address] | | | | | | | [...]
--- OUTSIDE RECORDS SUMMARY | ~2020-08-16 | XMS | Encounter Summary ---
Demographics + + + | Address | [address] | | | [place] [address] | + + + | Home Phone [...] Team Providers + +------+ + | Care Program Manager Environmental Planning Name | Role | Phone | + +------+ + | Rahul Silva MD | PCP | | + +------+ + Encounter Details +--------+ + + + + | Date | Type | Department | Care Team | Description | +--------+ + + + + | 09/07/ | Preadmit | [facility] | Brian Orosco MD | | | 2019 | Visit | CENTER PREADMIT | [address] | | | | | CLINIC [address] | [place], [place] | | | | | [place], [place] | [address] | | | | | [address] | [phone] | | | | | [phone] | | | +--------+ + + + [...] for the 09/07/19 encounter (Preadmit Visit) with [facility] ROOM 4 Medication Sig Instructions [...] to check-in desk and are in the [facility] waiting room. AttachmentsThe following attachments cannot be sent through Care Everywhere.Hemodialysis Ac cess, Creating a (Togolese)Dialysis, Arteriovenous (AV) Fistula for (Togolese)documented in th is encounter Plan of Treatment +--------+ + + + + | Date | Type | Specialty | Care Team | Description | +--------+ + + + + | 10/30/ | Virtual | Nephrology | Farrukh Acuna MD | | | 2019 | Office | | [address] [facility] [place] | | | | Visit | | [address] [place], [place] | | | | | | [address] | | | | | | | [...] | 10.5 | 8.5 - 10.5 | KR | | | | | mg/dL | LABORATORY | | + + + + + + | Estimated | 12 (L)Comment: GFR <60: | >60 | KR | | | GFR | CHRONIC KIDNEY [...] | | | | | performed at [facility], [address] | | | | | | [facility], | | | | | | [place] [address] | | | | + + + + + + + + | Specimen | + + | Blood | + + + + + + + | Performing | Address | City/State/Zipcode | Phone Number | | Organization | | | | + + + + + | [facility] | [address] | [place] [address] | [phone] | + + + + + CBC [...] | | | Absolute | performed at [facility], [address] | K/uL | LABORATORY | | | | [place], | | | | | | [place] [address] | | | | + + + + + + + + | Specimen | + + | Blood | + + + + + + + | Performing | Address | City/State/Zipcode | Phone Number | | Organization | | | | + + + + + | [facility] | [address] | [place] [address] | [phone] | + + + + + ECG [...]
--- OUTSIDE RECORDS SUMMARY | ~2020-08-16 | XMS | Encounter Summary ---
Demographics + + + | Address | [address] | | | [place] [address] | + + + | Home Phone [...] [place] | | | | | [address] | | + + + + + Care Team Providers + +------+ + | Care Plant Protection Guard Name | Role | Phone | [...] as of this encounter Progress Notes Interface, Clinical Operations Consultant In - 11/10/2006 2:27 AM PSTCLINIC DATE: [...] he embarked on this. Galo Arora M.D. Lead Setter, Plastic and Reconstructive Surgery / [id number] / [id number] / [phone] cc: Nelson Melara M.D. Anesthesiology. [facility]. [id number] signed by Interface, Clinical Operations Consultant In at 11/10/2006 2:27 AM PSTdocume nted in this encounter Plan of Treatment Not on filedocumented as of this encounter Visit Diagnoses Not on filedocumented in this encounter"
--- OUTSIDE RECORDS SUMMARY | ~2020-08-16 | XMS | Encounter Summary ---
Demographics + + + | Address | [address] | | | [place] [address] | + + + | Home Phone [...] + | 10/28/ | Orders Only | [facility] | Conversion | | | 2016 | | NEPHROLOGY CON[facility]IE | Transaction, | | | | | [address] | Provider Unknown | | | | | [address] [place] [address] | | | | | | [phone] | (Fax) | | | | | [phone] | | | +--------+ + + + [...] | | | Visit | | [address] [facility] | | | | | | [address] | | | | | | | [...]
--- OUTSIDE RECORDS SUMMARY | ~2020-08-16 | XMS | Encounter Summary ---
Demographics + + + | Address | [address] | | | [place] [address] | + + + | Home Phone [...] Team Providers + +------+ + | Care Teachers Aide Name | Role | Phone | + +------+ + | Rahul Silva MD | PCP | | + +------+ + Encounter Details +--------+ + + + + | Date | Type | Department | Care Team | Description | +--------+ + + + + | 07/06/ | Orders Only | [facility] | Farrukh Acuna MD | | | 2018 | | NEPRHOLOGY [place] | [address] [facility] [place] | | | | | [address] | [address] [place], [place] | | | | | [address] [place], [place] | [address] | | | | | [address] | | | | | | [phone] | | | +--------+ + + + [...] 2020 | Office | | [address] [facility] | | | | Visit | | [address] [place], [place] | | | | | | [address] | | | | | | | [...]
--- OUTSIDE RECORDS SUMMARY | ~2020-08-16 | XMS | Encounter Summary ---
Demographics + + + | Address | [address] | | | [place] [address] | + + + | Home Phone [...] Team Providers + +------+ + | Care Nurseryperson Name | Role | Phone | + +------+ + | Rahul Silva MD | PCP | | + +------+ + Encounter Details +--------+ + + + + | Date | Type | Department | Care Team | Description | +--------+ + + + + | 06/23/ | Orders Only | [facility] | Farrukh Acuna MD | | | 2018 | | NEPHROLOGY [place] | [address] [place] | | | | | [address] [place] | [address] [place], [place] | | | | | [address] [place], [place] | [address] | | | | | [address] | | | | | | [phone] | | | +--------+ + + + [...] | | | Visit | | [address] [place], [place] | | | | | | [address] | | | | | | | [...]
--- OUTSIDE RECORDS SUMMARY | ~2020-08-16 | XMS | Encounter Summary ---
Demographics + + + | Address | [address] | | | [place] [address] | + + + | Home Phone [...] Providers + +------+ + | Care Artificial Intelligence Specialist Name | Role | Phone | [...] | [address] [place] | [place] [address] | | | | | [place] [address] | | | | | | [phone] | | | +--------+ + + + [...] 2019 | Office | | [address] [facility] | | | | Visit | | [address] [place] | | | | | | [address] | | | | | | | [...]
--- OUTSIDE RECORDS SUMMARY | ~2020-08-16 | XMS | Encounter Summary ---
Demographics + + + | Address | [address] | | | [place] [address] | + + + | Home Phone [...] Providers + +------+ + | Care Relay Worker Name | Role | Phone | + +------+ + | Mehrdad Bergman | PCP | | + +------+ + Encounter Details +--------+ + + + + | Date | Type | Department | Care Team | Description | +--------+ + + + + | 08/09/ | Virtual | [facility] | Farrukh Acuna MD | Persistent | | 2020 | Office | NEPHROLOGY [place] | [address] [place] | proteinuria (Primary | | | Visit | [address] | [address] [place], [place] | Dx); CKD (chronic | | | | [address] | [address] | kidney disease) | | | | [place], [place] | | stage 5, GFR less | | | | [address] | | than 15 ml/min | | | | [phone] | | ([facility]); Anemia of | | | | | | chronic kidney | | | | | | failure, stage 5 | | | | | | ([facility]); Iron | | | | | [...] insulin | | | | | | ([facility]); Secondary | | | | | | hyperparathyroidism | | | | | | ([facility]); Edema of | | | | [...] 03/01/19. He was in the ED at [facility] on 08/01/20 with chest pain, non-cardiac in origin per records that I reviewed from the ED. He was in the ED at [facility] in late 05/2020 with CP & dyspnea; [...] 10/2016 with severe pneumonia, severe ZEKE; needed NIPPLE MACHINE OPERATOR for ~5 weeks b efore renal function recovery mid 12/2016. He was admitted to [facility] for 3 nights in July 2016 for [...] 10/2016 with severe pneumonia, severe ZEKE; needed NIPPLE MACHINE OPERATOR for ~5 weeks b efore renal [...] ALEXI. I see no need for acute NIPPLE MACHINE OPERATOR. I see no need to send [...] or concerns. Truly yours, Farrukh Acuna MD [facility] This exam was initially conducted via a secure 256-bit AES encrypted bidirectional video se ssion. You have chosen to receive care through the use of telemedicine. Telemedicine enables [facility] care providers at different locations [...] | | Visit | | [facility] | | | | | | [address] | | | | | | | [...] Anemia of chronic kidney failure, stage 5 ([facility]) | + + | Iron deficiency [...]
--- OUTSIDE RECORDS SUMMARY | ~2020-08-16 | XMS | Encounter Summary ---
Demographics + + + | Address | [address] | | | [place] [address] | + + + | Home Phone [...] Team Providers + +------+ + | Care Spray Rig Operator Name | Role | Phone | [...] + + | 02/07/ | Refill | [facility] | Farrukh Acuna MD | Medication Refill | | 2020 | | NEPHROLOGY [place] | [address] [place] | | | | | [address] | [address] [facility] [place] | | | | | [facility] [address] | [id number] | | | | | [place], [place] | | | | | | [address] | | | | | | [phone] | | | +--------+--------+ + + + [...] ddendum Note - Kanwal Sampson Medica l Personnel Adviser - 02/08/2020 5:22 PM PDT Addended by: [...] [place] | | | | | | [address] | | | | | | | | +--------+ + + + + documented as of this encounter Visit Diagnoses + + | Diagnosis | + + | Essential hypertension - Primary Unspecified essential hypertension | + + documented in this encounter"
--- OUTSIDE RECORDS SUMMARY | ~2020-08-16 | XMS | Encounter Summary ---
Demographics + + + | Address | [address] | | | [place] [address] | + + + | Home Phone [...] [place] | | | | | [address] | | + + + + + Care Team Providers + +------+ + | Care Home Economist Consumer Service Name | Role | Phone | [...] | | | | | | [address] | | | | | | [place], [place] | | | | | | [address] | | | | | | [phone] | | | +--------+ + + + [...] as of this encounter Progress Notes Interface, Ware Carrier In - 02/14/2007 3:12 AM PDT [facility] and [address] [address] or September 09, 1996 Nestor VALLES MD [address] [place] [address] RE: PORFIRIO ZAVALA MR#: [id number] Valles: Your patient, Porfirio Zavala, was seen for follow up today in the Neurosurgery Clinic at [facility]. 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 Following our initial evaluation, we recommended [...] Fellow, Neurosurgery Alina Moise M.D. Professor and Rf Microwave Engineer, Division of Neurosurgery Mala documented in this encounter Plan of Treatment Not on filedocumented as of this encounter Visit Diagnoses Not on filedocumented in this encounter"
--- OUTSIDE RECORDS SUMMARY | ~2020-08-16 | XMS | Encounter Summary ---
Demographics + + + | Address | [address] | | | [place] [address] | + + + | Home Phone [...] Team Providers + +------+ + | Care Machining Manager Name | Role | Phone | [...] [address] | | | | | [place], [place] | [place], [place] | | | | | [address] | [address] | | | | | [phone] | | | | | | | [...] 2020 | Office | | [address] [facility] | | | | Visit | | [address] [place] | | | | | | [address] | | | | | | | [...]
--- OUTSIDE RECORDS SUMMARY | ~2020-08-16 | XMS | Encounter Summary ---
Demographics + + + | Address | [address] | | | [place] [address] | + + + | Home Phone [...] Providers + +------+ + | Care Child Protective Services Specialist Name | Role | Phone [...] + + | 08/01/ | Documentati | [facility] | Alfred, | Other (IV fersonyaeme | | 2020 | on | NEPHROLOGY [place] | [facility] | order and new | | | | [address] [place] | Hydrogen Treater | procrit order sent | | | | [address] [place], [place] | | to [facility] Shannan IVT | | | | [address] | | confirmation | | | | [phone] | | received 07/28) | +--------+ + [...] [place] | | | | | | [address] | | | | | | | | +--------+ + + + + documented as of this encounter Visit Diagnoses Not on filedocumented in this encounter"
--- OUTSIDE RECORDS SUMMARY | ~2020-08-16 | XMS | Encounter Summary ---
Demographics + + + | Address | [address] | | | [place] [address] | + + + | Home Phone [...] Team Providers + +------+ + | Care Larder Cook Name | Role | Phone | + +------+ + | Rahul Silva MD | PCP | | + +------+ + Encounter Details +--------+ + + + + | Date | Type | Department | Care Team | Description | +--------+ + + + + | 02/15/ | Orders Only | [facility] | Conversion | | | 2019 | | NEPHROLOGY [place] | Transaction, | | | | | [address] | Provider Unknown | | | | | [address] [place] | | | | | | [address] | (Fax) | | | | | [phone] | | | +--------+ + + + [...] 2019 | Office | | [address] [facility] | | | | Visit | | [facility] | | | | | | [address] | | | | | | | [...]
--- OUTSIDE RECORDS SUMMARY | ~2020-08-16 | XMS | Encounter Summary ---
Demographics + + + | Address | [address] | | | [place] [address] | + + + | Home Phone [...] Team Providers + +------+ + | Care Physician/Ophthalmologist Name | Role | Phone | + +------+ + | Rahul Silva MD | PCP | | + +------+ + Encounter Details +--------+ + + + + | Date | Type | Department | Care Team | Description | +--------+ + + + + | 07/06/ | Orders Only | [facility] | Farrukh Acuna MD | | | 2018 | | NEPRHOLOGY [place] | [address] [facility] [address] | | | | | [address] | 160 [place], [place] | | | | | [address] [place], [place] | [address] | | | | | [address] | | | | | | [phone] | | | +--------+ + + + [...] | | | Visit | | [address] [place], [place] | | | | | | [address] | | | | | | | [...]
--- OUTSIDE RECORDS SUMMARY | ~2020-08-16 | XMS | Encounter Summary ---
Demographics + + + | Address | [address] | | | [place] [address] | + + + | Home Phone [...] Team Providers + +------+ + | Care Habilitation Training Specialist Name | Role | Phone | + +------+ + | Rahul Silva MD | PCP | | + +------+ + Encounter Details +--------+ + + + + | Date | Type | Department | Care Team | Description | +--------+ + + + + | 05/27/ | Orders Only | [facility] | Conversion | | | 2018 | | [place] | Transaction, | | | | | [address] | Provider Unknown | | | | | [address] [place], [place] | [phone] | | | | | [address] | (Fax) | | | | | [phone] | | | +--------+ + + + [...] [place] | | | | | | [address] | | | | | | | [...]
--- OUTSIDE RECORDS SUMMARY | ~2020-08-16 | XMS | Encounter Summary ---
Demographics + + + | Address | [address] | | | [place] [address] | + + + | Home Phone [...] Providers + +------+ + | Care Flat Machine Cutter Name | Role | Phone | [...] [address] | | | | | [place], [place] | [place], [place] | | | | | [address] | [address] | | | | | [phone] | [phone] | | | | | | | [...] | | | Visit | | [address] [place] | | | | | | [address] | | | | | | | [...]
--- OUTSIDE RECORDS SUMMARY | ~2020-08-16 | XMS | Encounter Summary ---
Demographics + + + | Address | [address] | | | [place] [address] | + + + | Home Phone [...] Team Providers + +------+ + | Care Segment Assembler Name | Role | Phone | + +------+ + | Rahul Silva MD | PCP | | + +------+ + Encounter Details +--------+ + + + + | Date | Type | Department | Care Team | Description | +--------+ + + + + | 07/27/ | Orders Only | [facility] | Farrukh Acuna MD | Chronic kidney | | 2019 | | NEPHROLOGY [place] | [address] [place] | disease, stage IV | | | | [address] [place] | [address] [place], [place] | (severe) (HCC); | | | | [address] [place], [place] | [address] | Chronic kidney | | | | [address] | | disease, stage IV | | | | [phone] | | (severe) (HCC); | | | [...] | | | Visit | | [address] [place], [place] | | | | | | [address] | | | | | | | [...] | | | ([facility]) Persistent | | | | | | proteinuria | | + +------+--------+ + + documented as of this encounter Visit Diagnoses + + | Diagnosis | + + | Chronic kidney disease, stage IV (severe) ([facility]) Chronic kidney disease, Stage IV | [...]
--- OUTSIDE RECORDS SUMMARY | ~2020-08-16 | XMS | Encounter Summary ---
Demographics + + + | Address | [address] | | | [place] [address] | + + + | Home Phone [...] Team Providers + +------+ + | Care Mechanical Engineering Officer Name | Role | Phone | [...] + + | 07/30/ | Telephone | [facility] | Brian Orosco MD | Establish Care | | 2019 | | VASCULAR SURGERY | [address] | (Referral) | | | | [address] [place] | [place], [place] | | | | | [place], [place] | [address] | | | | | [address] | [phone] | | | | | [phone] | | | +--------+ + + + [...] transfer the call to a p erikavidixie precipitator was caller made aware that if at [...] | | | Visit | | [address] [place], [place] | | | | | | [address] | | | | | | | | +--------+ + + + + documented as of this encounter Visit Diagnoses Not on filedocumented in this encounter"
--- OUTSIDE RECORDS SUMMARY | ~2020-08-16 | XMS | Encounter Summary ---
Demographics + + + | Address | [address] | | | [place] [address] | + + + | Home Phone [...] Providers + +------+ + | Care Spring Salvage Worker Name | Role | Phone | + +------+ + | Rahul Silva MD | PCP | | + +------+ + Encounter Details +--------+---------+ + + + | Date | Type | Department | Care Team | Description | +--------+---------+ + + + | 10/04/ | Office | [facility] | Farrukh Acuna MD | CKD (chronic kidney | | 2019 | Visit | NEPHROLOGY [place] | [address] [place] | disease) stage 5, | | | | [address] | [address] [place], [place] | GFR less than 15 | | | | [address] | [address] | ml/min (HCC) | | | | [place], [place] | | (Primary Dx); Anemia | | | | [address] | | of chronic kidney | | | | [phone] | | failure, stage 5 | | [...] 10/2016 with severe pneumonia, severe ZEKE; needed ROAD GRADER OPERATOR for ~5 weeks b efore renal [...] 19.5 (A) 05/27/2019 LABPROT 2,445.6 (A) 03/01/2019 [id number] 30 10/08/2018 Assessment: Mr. Andujar is a 78 y.o. male patient with stage IV CKD on a background of diabetes & hypert ension and recent hospitalization for C-diff and hehydration. The most likely pathology here is that of diabetic nephropathy +/- hypertensive nephrosclerosis/arteriolosclerosis. He was hospitalized in 10/2016 with severe pneumonia, severe ZEKE; needed ROAD GRADER OPERATOR for ~5 weeks b efore renal [...] Also: I see no need for acute ROAD GRADER OPERATOR. I see no need to send [...] | | | Visit | | [address] [place], [place] | | | | | | [address] | | | | | | | | +--------+ + + + + documented as of this encounter Visit Diagnoses + + | Diagnosis | + + | CKD (chronic kidney disease) stage 5, GFR less than 15 ml/min ([facility]) - Primary Chronic | | kidney [...]
--- OUTSIDE RECORDS SUMMARY | ~2020-08-16 | XMS | Encounter Summary ---
Demographics + + + | Address | [address] | | | [place] [address] | + + + | Home Phone [...] Team Providers + +------+ + | Care Amphibious Operations Officer Name | Role | Phone | [...] | | | [address] [place] | [place] [address] | | | | | [place] [address] | | | | | | [phone] | | | +--------+ + + + [...] | [address] [facility] [place] | | | | Visit | | [address] [place] | | | | | | [address] | | | | | | | [...]
--- OUTSIDE RECORDS SUMMARY | ~2020-08-16 | XMS | Encounter Summary ---
Demographics + + + | Address | [address] | | | [place] [address] | + + + | Home Phone [...] Providers + +------+ + | Care Plate Glass Grinder Name | Role | Phone | [...] [address] | | | | | [place], [place] | [place], [place] | | | | | [address] | [address] | | | | | [phone] | [phone] | | | | | | | [...] | | | Visit | | [address] [place] | | | | | | [address] | | | | | | | [...]
--- OUTSIDE RECORDS SUMMARY | ~2020-08-16 | XMS | Encounter Summary ---
Demographics + + + | Address | [address] | | | [place] [address] | + + + | Home Phone [...] Providers + +------+ + | Care Technology And Engineering Teacher Name | Role | Phone | + +------+ + | Rahul Silva MD | PCP | | + +------+ + Encounter Details +--------+ + + + + | Date | Type | Department | Care Team | Description | +--------+ + + + + | 08/13/ | Orders Only | [facility] | Conversion | | | 2016 | | NEPHROLOGY [place] | Transaction, | | | | | [address] | Provider Unknown | | | | | [address] [place] | | | | | | [address] | (Fax) | | | | | [phone] | | | +--------+ + + + [...] [place] | | | | | | [address] | | | | | | | [...]
--- OUTSIDE RECORDS SUMMARY | ~2020-08-16 | XMS | Encounter Summary ---
Demographics + + + | Address | [address] | | | [place] [address] | + + + | Home Phone [...] Providers + +------+ + | Care Fisher Pound Net Or Trap Name | Role | Phone | [...] + + | 12/30/ | Telephone | [facility] | Farrukh Acuna MD | Other (Medication | | 2019 | | NEPHROLOGY [place] | [address] [place] | question.) | | | | [address] [place] | [facility] [place] | | | | | [address] [place], [place] | [address] | | | | | [address] | | | | | | [phone] | | | +--------+ + + + [...] Miscellaneous Notes Telephone Encounter - Trinidad Simon Senior Copywriter - 12/30/2019 4:35 PM PSTPatie nts daughter [...] time. Electronically sign ed by Trinidad Simon Senior Copywriter at 12/30/2019 4:40 PM PSTdocumented in this [...] | | | Visit | | [address] [place], [place] | | | | | | [address] | | | | | | | | +--------+ + + + + documented as of this encounter Visit Diagnoses Not on filedocumented in this encounter"
--- OUTSIDE RECORDS SUMMARY | ~2020-08-16 | XMS | Encounter Summary ---
Demographics + + + | Address | [address] | | | [place] [address] | + + + | Home Phone [...] + +------+ + | Care Manager Of Purchasing Name | Role | Phone | + +------+ + | Rahul Silva MD | PCP | | + +------+ + Encounter Details +--------+ + + + + | Date | Type | Department | Care Team | Description | +--------+ + + + + | 07/17/ | Orders Only | [facility] | Conversion | | | 2016 | | NEPHROLOGY [place] | Transaction, | | | | | [address] | Provider Unknown | | | | | [address] [place] | | | | | | [address] | (Fax) | | | | | [phone] | | | +--------+ + + + [...] 10/30/ | Virtual | Nephrology | Farrukh cAuna MD | | | 2019 | Office | | [address] [facility] | | | | Visit | | [facility] | | | | | | [address] | | | | | | | [...]
--- OUTSIDE RECORDS SUMMARY | ~2020-08-16 | XMS | Encounter Summary ---
Demographics + + + | Address | [address] | | | [place] [address] | + + + | Home Phone [...] Providers + +------+ + | Care Cloth Mercerizer Back Tender Name | Role | Phone | + +------+ + | Rahul Silva MD | PCP | | + +------+ + Encounter Details +--------+ + + + + | Date | Type | Department | Care Team | Description | +--------+ + + + + | 11/05/ | Orders Only | [facility] | Farrukh Acuna MD | Essential | | 2019 | | NEPHROLOGY [place] | [address] [place] | hypertension | | | | [address] | [address] [place], [place] | (Primary Dx); Iron | | | | [address] | [address] | deficiency; Anemia | | | | [place], [place] | | of chronic kidney | | | | [address] | | failure, stage 5 | | | | [phone] | | (HCC) | +--------+ + + [...] Miscellaneous Notes Addendum Note - Kanwal Sampson Computer Publisher - 10/05/2019 6:24 PM PST Addended b [...] | | | Visit | | [address] [place], [place] | | | | | | [address] | | | | | | | [...]
--- OUTSIDE RECORDS SUMMARY | ~2020-08-16 | XMS | Encounter Summary ---
Demographics + + + | Address | [address] | | | [place] [address] | + + + | Home Phone [...] Providers + +------+ + | Care Wood And Hardware Outfitter Name | Role | Phone | + [...] | | | hip | [address] | | | | | | fracture, | [place] | | | | | | initial | [place], [place] | | | | | | encounter | [address] | | | | | | ([facility]) | Phone: | | | | | | Status post | [phone] | | | | | | above knee | Fax: | | | | | | amputation | [phone] | | | | | | of [...] | | | | | | | ([facility]) | | | | | | | | | | | | | | | | | +--------+--------+ + + + + Encounter Details +--------+ + + + + | Date | Type | Department | Care Team | Description | +--------+ + + + + | 08/03/ | Hospital | [facility] | Jose Andrade | Laceration of left | | 2016 - | Encounter | MED CTR SURGICAL | MD Mehrdad [address] | ear, initial | | | | [address] [place] | [address] [place] | encounter (Primary | | 08/05/ | | [place] [address] | [place] [address] | Dx); Closed left hip | | 2015 | | [phone] | [phone] | fracture, initial | | | | | | encounter ([facility]); | | | | | Linda Steiner, | Fall, initial | | | | | DO [address] | encounter; Acute | | | | | [address] [place], | pain; Hyperkalemia; | | | | | [place] [address] | CKD (chronic kidney | | | | | [phone] | disease), | | | | | [...] | | | | | | type ([facility]); Insulin | | | | | | dependent type 2 | | | | | | diabetes mellitus, | | | | | | uncontrolled (HCC); | | | | | | Intertrochanteric | | | | | | fracture of left | | | | | | hip, closed, initial | | | | | | encounter ([facility]); | | | | | | PAOLO on CPAP; Status | | | | | | post fall; Status | | | | | | 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 | | | | | | lower extremity | | | | | | ([facility]); Phantom limb | | | | | | pain ([facility]) | +--------+ + + [...] Bolivar MD - 08/05/2016 1:07 PM PDT [facility] DISCHARGE SUMMARY Pt. Name/Age/: Porfirio Zavala [...] mg by mouth nightly. aka: LIPITOR Cholecalciferol 29099 units Caps Take 50,000 Units by mouth [...] information: [address] [place] [id number] PENDING RESULTS: HOSPITAL COURSE: Please refer to [...] signed by: Petey Bolivar MD, 08/05/2016 13:07 [facility] Portions of this chart may have been created with [employer] voice recognition software. Occasi onal wrong-word or sound-alike substitutions may have occurred due to the inherent vanegas itations of voice recognition software. Please read the chart carefully and recognize, using context, where these substitutions have occurred documented in this encounter Discharge Instructions Instructions Maritza Devries RN - 08/05/2016Please call Dr. Tobar at [phone] for an y questions or concerns regarding [...] 0 | | | | (VITAMIN D-3) [address] | mouth Every 3 | | | [...] might be differ ent from the original. [facility] Hospitalist Progress Note Porfirio Zavala is a [...] Clear Clear PH UA 5.0 5.0-8.0 Specific [place] 1.015 1.001-1.030 PROTEIN UA 100 mg/dL (A) [...] as outlined above. Sonu Michel 08/04/2016 11:33 [facility] Yuriy Farrell RRT - 08/04/2016 [...] might be different f rom the original. [facility] HISTORY & PHYSICAL Patient: Porfirio Zavala : 1940: Age: 76 y.o. MedRec: [id number] PCP: Hardik Coyne MD Admission date: 08/03/2016 [...] phantom pain who was transferred here from [facility] emergency room with above presentation. Patient was accepted for transfer by Dr. Mondragon of ENT and Dr. Robison of orthopedic surgery as patient's daughter requested high level of care for plastic surgery consultation and repair of his left ear. According to estella antunez he was bending over to seed cone picker something up while sitting in his [...] much distress. Workup on blood work at [facility] showed mildly elevated potassium at 5.4, but [...] Charlotte Zavala, her contact numbers are: (h) [phone] & (c) [phone] ALLERGIES: No Known Allergies VITAL SIGNS: Temp: [...] CKTOTAL No results for input(s): PHART, PO2ART, AQI2PFK, VNT9BGZ, BEART, S3BVQERS in the last 168 h ours. No results for input(s): SPECSOURCE, PHPOCB, HCO3, TCO2, BEART, BE, IBTF4VDW in the last 16 8 hours. Invalid input(s): BEFFE2YT, SQSO6EP (dot meylab) Xray Results: No results found. I reviewed imaging done at [facility]: CXR showed no acute disease. CT pelvis [...] EKG Results (I reviewed EKGs) 1st at [facility]: Sinus bradycardia, rate 59 bpm, otherwi se normal EKG. 2nd at [place]: Normal sinus rhythm, rate 78 bpm, otherwise [...] signed by: Linda Steiner DO 08/03/2016 23:57 [facility] Dot phrase reference: VSHOSP (VS in table, last 24 hours) MEYLAB (various labs to pull in) DT (date and time) LABRCNTIP[K:3,Na:3 (last 3 sets of labs using potassium and sodium as examples) HGB HCT PLT INR GLU POCGLU Na K BUN CREA, CALCIUM TROPONINI BNP DIGOXIN Portions of this chart may have been created with [employer] voice recognition software. Occasi onal wrong-word or sound-alike substitutions may have occurred due to the inherent vanegas itations of voice recognition software. Please read the chart carefully and recognize, using context, where these substitutions have occurred documented in this encounter Consult Notes Adonay Robison MD - 08/04/2016 10:15 AM PDT [place] [address] CONSULTATION ADONAY ROBISON MD Patient: PORFIRIO ZAVALA Admitting: LINDA STEINER MR #: [id number] LOC: PT TYPE: Adm Date: 08/03/2016 : 1940 DATE OF CONSULTATION AND DATE OF DICTATION: 08/04/2016 IDENTIFICATION: Porfirio Zavala is a 76-year-old male who resides with his daughter in the [facility]. CHIEF COMPLAINT: Fall off wheelchair with left [...] while at home, necessitating transfe r to [facility] in [place] for evaluation. He was found to have a left ear l aceration, a superficial skin tear on the left wrist and on CT scan was noted to have a no ndisplaced unicortical left hip intertrochanteric fracture. He also was found to have an e levated potassium of 5.6 and the decision was made to transfer the patient to [facility] in [place] for a more in depth evaluation and appropriate care, including re pair of the ear by ENT surgeon, Dr. Tobar. Consequently, the patient was transferred to [facility] to [facility] where indeed, Dr. Tobar came and repaired his ear laceration in the emergency room. [facility] and orthopedic consultation was requested. Today, [...] could be obtained with an orthopedist in [place], or he may c ertainly come back to my office for this followup as well. I will follow the patient with you as needed. ADONAY ROBISON MD Dictated by ADONAY ROBISON MD 08/04/2016 10:15:13 Transcribed on 08/04/2016 10:52:[address] art# [id number] Confirmation #: [id number] cc: HARDIK COYNE MD donay Robison MD [...] might be differe nt from the original. [facility] Emergency Department Encounter Note [address] [place] [address] PCP:Hardik Coyne MD [phone] CHIEF COMPLAINT: Chief Complaint Patient presents with Head Injury Ear Laceration ED Room: ED14/ED14 HPI Porfirio Zavala is a 76 y.o. male who presents to the Emergency Department Patient presents as a referral from [facility]. He's been accepted by Dr. tobar of ENT and Dr. Robison of orthopedic surgery. He has a ugxiz-bsk-pzcq amputation and fell out of his wheelchair earlier today. He struck his left hip and left side of his head against the ground. His family requested he be coker sferred to this hospital for plastic surgery consultation and repair of his left ear. I acc epted call from [facility] emergency department they confirmed the story dated imaging he has a left intercurrent trochanteric hip fracture as well as a negative CT scan of the head . He was noted to be mildly hyperkalemic at [facility]. On arrival he complains of [...] were reviewed along with EMS notes and intermediate record s if applicable. (See chart for details) Medications and Allergy list reviewed. Nurses note and old records were reviewed The patient was seen and examined, For persistent pain he receives IV narcotic pain medication morphine 3 doses. Imaging from [facility] reviewed no skull fracture or intracranial bleed [...] 2. Closed left hip fracture, initial encounter ([facility]) S72.002A 820.8 3. Fall, initial encounter W19.XXXA E888.9 4. Acute pain R52 338.19 5. Hyperkalemia E87.5 276.7 6. CKD (chronic kidney disease), unspecified stage N18.9 585.9 7. Intractable pain R52 780.96 Administrations This Visit albuterol 2.5 mg/3 mL nebulizer solution 5 mg Admin Date Action Dose Route Administered By 08/03/2016 Given 5 mg Nebulization Agustin Gordon, METAL EXPEDITER bacitracin topical ointment Admin Date Action Dose [...] Given 4 mg Intravenous Jose Calhoun RN vszdoxj-yamfsyxzip-sivvthnta pertussis (ADACEL, Tdap) vaccine injection 0.5 mL [...] i nstructions. lan of [facility] Brie Bauer, METAL EXPEDITER - 08/05/2016 12:55 PM PDTProblem: Patient Care [...] clear and diminished. Anticipate discharge. lan of [facility] - Lyn Goldsmith, PT - 08/05/2016 12:10 [...] caprice pain who was transferred here from [facility] emergency room d/t ear laceration that needs [...] she will need to come back to [place] and seed cone picker pt's old wheelchair that she is [...] from multiple contributors. Transfers Bed-Chair, Level of Vermillion: contact guard assist Chair-Bed, Level of [place]: contact guard assist Etg-Eewso-Mva, Assistive Device: none Impairments: strength decreased, impaired balance, pain Bed Mobility Supine to Sit, Level of [place]: independent Sit to Supine, Level of [place]: independent Wheelchair Mobility Pt able to demo safe and independent ability to self propel manual wheelchair in room and hallway. ROM B UEs and R LE grossly WFL; L LE not tested due to recent fracture. Strength B UEs and R LE grossly WFL; L LE not tested due to recent fracture. STG GOALS [place] Level: minimum assist (75% patient effort) Assistive Device: none Time to Achieve: 2 days Goal Status: met Transfer Training Goal, Activity Type: bed to chair /chair to bed [place] Level: minimum assist (75% patient effort) Assistive [...] S72.002A Closed left hip fracture, initial encounter ([facility]) W19.XXXA Fall, initial encounter R52 Acute pain E87.5 Hyperkalemia N18.9 CKD (chronic kidney disease), unspecified stage R52 Intractable pain E87.5 Acute hyperkalemia N18.3 Chronic kidney disease (CKD), stage 3 (moderate) J44.9 Chronic obstructive pulmonary disease, unspecified COPD type ([facility]) E11.65, Z79.4 Insulin dependent type 2 diabetes mellitus, uncontrolled ([facility]) S72.142A Intertrochanteric fracture of left hip, closed, initial encounter ([facility]) G47.33 PAOLO on CPAP Z91.89 Status post fall Z89.612 Status post above knee amputation of left lower extremity ([facility]) G54.7 Phantom limb pain ([facility]) Date of Onset: Past Medical History Diagnosis Date PAOLO (obstructive sleep apnea) On CPAP plus 4 L of oxygen at night COPD (chronic obstructive pulmonary disease) ([facility]) Diabetes mellitus, type II ([facility]) Constipation Epigastric pain Stump pain ([facility]) Renal insufficiency Obesity Iron deficiency anemia Hypertension Dyslipidemia Lower extremity embolism ([facility]) Phantom pain following amputation of lower limb ([facility]) Pain of amputation stump of left lower extremity ([facility]) Past Surgical History Procedure Laterality [...] phantom pain who was transferred here from [facility] emergency room d/t ear laceration that needs [...] Porfirio Zavala 3 times/wk until discharge from [facility] or discharged from the hospital. Occupational [...] to f/u with Jonas next Friday in [place] to have sutures mello alexus. Skin tear/wound [...] S72.002A Closed left hip fracture, initial encounter ([facility]) W19.XXXA Fall, initial encounter R52 Acute pain E87.5 Hyperkalemia N18.9 CKD (chronic kidney disease), unspecified stage R52 Intractable pain E87.5 Acute hyperkalemia N18.3 Chronic kidney disease (CKD), stage 3 (moderate) J44.9 Chronic obstructive pulmonary disease, unspecified COPD type ([facility]) E11.65, Z79.4 Insulin dependent type 2 diabetes mellitus, uncontrolled ([facility]) S72.142A Intertrochanteric fracture of left hip, closed, initial encounter ([facility]) G47.33 PAOLO on CPAP Z91.89 Status post fall Z89.612 Status post above knee amputation of left lower extremity ([facility]) G54.7 Phantom limb pain ([facility]) Date of Onset: Past Medical History Diagnosis Date PAOLO (obstructive sleep apnea) On CPAP plus 4 L of oxygen at night COPD (chronic obstructive pulmonary disease) ([facility]) Diabetes mellitus, type II ([facility]) Constipation Epigastric pain Stump pain [...] phantom pain who was transferred here from [facility] emergency room d/t ea r laceration that [...] from multiple contributors. Transfers Bed-Chair, Level of [place]illion: minimum assist (75% patient effort), verbal cues required Chair-Bed, Level of [place]: minimum assist (75% patient effort), verbal cues required Zmu-Enkwn-Gjm, Assistive Device: none Impairments: strength decreased, impaired balance, pain ROM B UEs and R LE grossly WFL; L LE not tested due to recent fracture. Strength B UEs and R LE grossly WFL; L LE not tested due to recent fracture. STG GOALS [place] Level: minimum assist (75% patient effort) Assistive Device: none Time to Achieve: 2 days Goal Status: new Transfer Training Goal, Activity Type: bed to chair /chair to bed [place] Level: minimum assist (75% patient effort) Assistive [...] PT eval completed. Case d/w RN and briefcase sewer. Contacted wheelchair r ep (Petey) who says [...] safe manner Outcome: Unchanged Patient lives in [place], [place] with his daughter Charlotte. Charlotte states [...] This CM called [facility] in [place] and gave industrial economics teacher , Argenis, the story about this patient. [...] Daughter will be here mid morning to seed cone picker patient. She states that if a manual w/c canno t be obtained, she will get one Friday at [facility] and "I will just be with him [...] face sheet to be fa xed to [phone]. Faxed face sheet. Electronically signed by: POLI [...] Team Goals & Evaluation PROBLEM-RELATED GOALS: 1. Porfiroi will maintain adequate oxygenation with supplemental oxygen, [...] hip fx (possible ORIF?) Surgeon: possibly Ricki; Amaduo sutured L ear Drains/ Lines:none Mobility: strict bedrest Continuous Pulse Ox: yes Diabetic: yes Pain: pain management issues, managed with 1-2 mg of Dilaudid q 2 hrs Pt arrived around 0300. Skin tears/lacerations on L hand, L elbow area, and L ear Amadou di lisseth procedure on ear tear, with sutures in place, which will need to be removed on 08/12 phylicia Muahmmad in [place]. Pt is alert and oriented, forgetful at [...] Tobar MD - 08/03/2016 10:51 PM PDT [address] [address] OPERATIVE REPORT STEVEN TOBAR MD Patient: PORFIRIO ZAVALA Admitting: LINDA Salgado OBDULIA MR #: [id number] LOC: PT TYPE: Adm Date: 08/03/2016 : [...] also hurt the left hip, and in [place] the laceration was felt to be too complex to repair in the emergency room by the emergency room physician . Also, the patient with complaint of the left hip was noted to have an intertrochanteric fracture, but nondisplaced. The patient was accepted at [facility] fo r repair of the laceration [...] the laceration, p art of it being pqhlztr-ieq-zftpkff the root of the ear, was 5.5 [...] his could be carried out down in [place] with Dr. Muhammad to save a long trip up to this area a week from Friday when they should be removed. They can call our office and arrange ments will be made for removal of the sutures if not able to do it down in the [facility]. The estimated blood loss from the current part was around 1-2 mL. The prognosis of th is area immediate and remote is good. STEVEN TOBAR MD Dictated by STEVEN TOBAR MD 08/03/2016 22:51:04 Transcribed on 08/04/2016 05:51:45 by blessing job# [id number] Confirmation #: [id number] cc: HARDIK COYNE MD D Triage Notes - Jose Calhoun RN - 08/03/2016 8:05 PM PDTPatient transferred fr [facility] in [place] for and ear laceration that needs to [...] 2019 | Office | | [address] [facility] | | | | Visit | | [address] [place], [place] | | | | | | [id number] | | | | | | | [...] until | | | | | encounter ([facility]) | 08/04/2016 | | | [...] | | | | | | encounter ([facility]) | | | | [...] [address] | [place] | [phone] | | [facility] | | [address] | | | - LABORATORY | | [...] mL/min/1.73m2 | [facility] | | | Turkish | RATE,ESTIMATED | | MEDICAL | | | | mL/min/1.61d1Iail than | | CENTER - | | [...] [address] | [place] | [phone] | | [facility] | | [address] | | | - LABORATORY | | [...] ST. | [address] | [place], [place] | [phone] | | [facility] | | [address] | | | - LABORATORY | | [...] [address] | [place] | [phone] | | [facility] | | [address] | | | - LABORATORY | | [...] + | [facility] | [address] | [place] | [phone] | | [facility] | | [address] | | | - LABORATORY | | [...] [address] | [place] | [phone] | | [facility] | | [address] | | | - LABORATORY | | [...] [address] | [place] | [phone] | | [facility] | | [address] | | | - LABORATORY | | [...] + | [facility] | [address] | [place] | [phone] | | [facility] | | [address] | | | - LABORATORY | | [...] [address] | [place] | [phone] | | [facility] | | [address] | | | - LABORATORY | | [...] + | [facility] | [address] | [place] | [phone] | | [facility] | | [address] | | | - LABORATORY | | [...] + | [facility] | [address] | [place], [place] | [phone] | | [facility] | | [address] | | | - LABORATORY | | [...] | mL/min/1.73m2 | [facility]DA | | | Turkish | RATE,ESTIMATED | | MEDICAL | | | | mL/min/1.21o7Huik than | | CENTER - | | [...] [address] | [place] | [phone] | | [facility] | | [address] | | | - LABORATORY | | [...] - 1.030 | [facility] | | | [place], | | | [facility] | | [...] [address] | [place] | [phone] | | [facility] | | [address] | | | - LABORATORY | | [...] | | | | AYAH RON MD ([id number]) | | | | | | on [...] + | [facility] | [address] | [place] | [phone] | | [facility] | | [address] | | | - LABORATORY | | [...] [address] | [place] | [phone] | | [facility] | | [address] | | | - LABORATORY | | [...] [address] | [place] | [phone] | | [facility] | | [address] | | | - LABORATORY | | [...] + | [facility] | [address] | [place] | [phone] | | [facility] | | [address] | | | - LABORATORY | | [...] [address] | [place] | [phone] | | [facility] | | [address] | | | - LABORATORY | | [...] non- | GLOMERULAR FILTRATION | mL/min/1.73m2 | [facility] | | | Turkish | RATE,ESTIMATED | | MEDICAL | | | | mL/min/1.68c7Rlja than | | CENTER - | | [...] + | [facility] | [address] | [place] | [phone] | | [facility] | | [address] | | | - LABORATORY | | [...] | | | | | | | 6759-6430 Use NIGHT DOSE for | | | | | | | doses scheduled: HS, 3AM, | | | | | | | Nighttime 5151-5733, | | | | | | + [...] | +---+---+ + +-------+ +---------+---+ + | mxvhcmi-hmwwkivydb-nejjlblkb | Given | 08/03/20 | 0.5 mLs [...]
--- OUTSIDE RECORDS SUMMARY | ~2020-08-16 | XMS | Encounter Summary ---
Demographics + + + | Address | [address] | | | [place] [address] | + + + | Home Phone [...] Team Providers + +------+ + | Care Floors Buffer Name | Role | Phone | + +------+ + | Rahul Silva MD | PCP | | + +------+ + Encounter Details +--------+ + + + + | Date | Type | Department | Care Team | Description | +--------+ + + + + | 08/31/ | Orders Only | [facility] | Farrukh Acuna MD | | | 2013 | | NEPHROLOGY [place] | [address] [place] | | | | | [address] [place] | [address] [place], [place] | | | | | [address] [place], [place] | [address] | | | | | [address] | | | | | | [phone] | | | +--------+ + + + [...] | | | Visit | | [facility] | | | | | | [address] | | | | | | | [...] | | | LAB | | | Peruvian | | | | | + + [...]
--- OUTSIDE RECORDS SUMMARY | ~2020-08-16 | XMS | Encounter Summary ---
Demographics + + + | Address | [address] | | | [place] [address] | + + + | Home Phone [...] Team Providers + +------+ + | Care Refund Clerk Name | Role | Phone | + +------+ + | Rahul Silva MD | PCP | | + +------+ + Encounter Details +--------+ + + + + | Date | Type | Department | Care Team | Description | +--------+ + + + + | 02/12/ | Orders Only | [facility] | Conversion | | | 2018 | | NEPHROLOGY [place] | Transaction, | | | | | [address] | Provider Unknown | | | | | [address] [place] | | | | | | [address] | (Fax) | | | | | [phone] | | | +--------+ + + + [...] Visit | | [address] [facility] | | | | | | [address] | | | | | | | [...]
--- OUTSIDE RECORDS SUMMARY | ~2020-08-16 | XMS | Encounter Summary ---
Demographics + + + | Address | [address] | | | [place] [address] | + + + | Home Phone [...] + +------+ + | Care Director Of Vendor Management Name | Role | Phone | [...] | | | [address] [place] | [place] [address] | | | | | [place] [address] | | | | | | [phone] | | | +--------+ + + + [...] [address] [facility] [place] | | | | Visit | | [address] [place] | | | | | | [address] | | | | | | | [...]
--- OUTSIDE RECORDS SUMMARY | ~2020-08-16 | XMS | Encounter Summary ---
Demographics + + + | Address | [address] | | | [place] [address] | + + + | Home Phone [...] Providers + +------+ + | Care Campaign Director Name | Role | Phone | [...] + + | 06/08/ | Telephone | [facility] | LaiElmira rodas | Other | | 2020 | | NEPRHOLOGY [place] | A, Medical | (Hospitalization ) | | | | [address] | Box [employer]e Maker | | | | | [address] [place], [place] | | | | | | [address] | | | | | | [phone] | | | +--------+ + + + [...] Miscellaneous Notes Telephone Encounter - Elmira Hoyt, Administration Clerk - 06/08/2020 10:11 AM PDTPati ents daughter called to inform us that her father was taken by ambulance this morning to [facility]. He was suffering from confusion [...] 2019 | Office | | [address] [facility] | | | | Visit | | [address] [place], [place] | | | | | | [address] | | | | | | | | +--------+ + + + + documented as of this encounter Visit Diagnoses Not on filedocumented in this encounter"
--- OUTSIDE RECORDS SUMMARY | ~2020-08-16 | XMS | Encounter Summary ---
Demographics + + + | Address | [address] | | | [place] [address] | + + + | Home Phone [...] Providers + +------+ + | Care Senior Training And Development Rep Name | Role | Phone | [...] + + | 09/13/ | Telephone | [facility] | Terri Aguilar, | Follow-up | | 2019 | | VASCULAR SURGERY | Operations Recruiter | | | | | [address] | | | | | | [place] | | | | | | [address] | | | | | | [phone] | | | +--------+ + + + [...] Miscellaneous Notes Telephone Encounter - Terri Aguilar Operations Recruiter - 09/13/2019 11:01 AM PDTSpoke wi th pt's daughter and pt. Pt is doing okay - there was some increased pain at the site, but t he bandages were removed this morning and the pain is much better. Reminded both of post-op instructions. He is scheduled for f/u with [facility] on 09/30/2019. Encouraged both to call back with any questions/concerns. SamP d ocumented in this encounter Plan of Treatment +--------+ + + + + | Date | Type | Specialty | Care Team | Description | +--------+ + + + + | 10/30/ | Virtual | Nephrology | Farrukh Acuna MD | | | 2019 | Office | | [address] [facility] | | | | Visit | | [address] [place] | | | | | | [address] | | | | | | | | +--------+ + + + + documented as of this encounter Visit Diagnoses Not on filedocumented in this encounter"
--- OUTSIDE RECORDS SUMMARY | ~2020-08-16 | XMS | Encounter Summary ---
Demographics + + + | Address | [address] | | | [place] [address] | + + + | Home Phone [...] Team Providers + +------+ + | Care Lift Driver Name | Role | Phone | [...] [address] | | | | | [place], [place] | [place], [place] | | | | | [address] | [address] | | | | | [phone] | | | | | | | [...] 2020 | Office | | [address] [facility] | | | | Visit | | [address] [place] | | | | | | [address] | | | | | | | [...]
--- OUTSIDE RECORDS SUMMARY | ~2020-08-16 | XMS | Clinical Summary ---
Demographics + + + | Address | [address] | | | [place] [address] | + + + | Home Phone [...] Team Providers + +------+ + | Care Readiness Paraprofessional Name | Role | Phone | + [...] | | | | | ([facility]), Secondary | | | | | | | | hyperparathyroidism | | | | | | | | ([facility]) | | | | | | | [...] | | | | | ([facility]), CKD (chronic | | | | | | | | kidney disease) | | | | | | | | stage 5, GFR less | | | | | | | | than 15 ml/min ([facility]) | | | | | | | + + + +---------+------+------+-------+ Active Problems + + + | Problem | Noted Date | + + + | CKD (chronic kidney disease) stage 5, GFR less than 15 ml/min | 08/26/2019 | + + + + + | Overview: Added automatically from request for surgery | | [id number] | + + + + + | [...] & Plan: Controlled on current | | [id number] yr old male with COPD, current heavy [...] ml/min | | | | | | ([facility]); Anemia of | | | | | | chronic kidney | | | | | | failure, stage 5 | | | | | | ([facility]); Iron | | | | | | [...] | | | | | ([facility]); Secondary | | | | | | hyperparathyroidism | | | | | | ([facility]); Edema of | | | | | [...] | | | | | ([facility]); Anemia of | | | | | | chronic kidney | | | | | | failure, stage 5 | | | | | | ([facility]); CKD (chronic | | | | | | kidney disease) | | | | | | stage 5, GFR less | | | | | | than 15 ml/min | | | | | | ([facility]); Persistent | | | | | | proteinuria | +--------+ + + + + | 08/09/ | Documentati | Nephrology | Alfred, | Other ([facility] | | 2019 | on | | Charlie Abdi | ER note 08/01/20) | | | | | Sales Representative [employer] | | +--------+ + + + + | 08/01/ | Documentati | Nephrology | Alfred, | [facility] | | 2019 | on | | Charlie Abdi | order and new | | | | | Sales Representative [employer] | procrit order sent | | | [...] | | | | | ([facility]); Anemia of | | | | | | chronic kidney | | | | | | failure, stage 5 | | | | | | ([facility]); Persistent | | | | | | [...] (Hospitalization ) | | | | | Sales Representative [employer] | | +--------+ + + + + [...] | | | | | ([facility]); Persistent | | | | | | proteinuria; | | | | | | Essential | | | | | | hypertension; Iron | | | | | | deficiency; | | | | | | Secondary | | | | | | hyperparathyroidism | | | | | | ([facility]); 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, with | | | | | | long-term current | | | | | | use of insulin | | | | | | ([facility]); Edema of | | | | | | lower extremity; | | | | | | Tobacco dependence | | | | | | syndrome | +--------+ + + + + | 06/05/ | Orders Only | Nephrology | Ami Cole, | CKD (chronic kidney | 2019 | | | 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) stage 5, | | | | | | GFR less than 15 | | | | | | ml/min ([facility]) | | | | | | (Primary Dx); Anemia | | | | | | of chronic kidney | | | | | | failure, stage 5 | | | | | | ([facility]); Persistent | | | | | | proteinuria; | | | | | | Essential | | | | | | hypertension; Iron | | | | | | deficiency | +--------+ + + + + | 05/31/ | Documentati | Nephrology | Ami Cole, | Results | | 2019 | on | | Field Ironworker | (interpath-05/29/2020 | | | | | [...] | | | Visit | | [address] [place], [place] | | | | | | [address] | | | | | | | [...] +--------+ +---------+--------+ | MEDICARE | MEDICA | [id number] | 07/01/20 | [phone] | | Medica | | | RE | | 05-Pre | 5 | | re | | | PART A | | sent | | | | | | AND B | | | | | | + +--------+ +--------+ +---------+--------+ | [employer] | MODA | [id number] | 07/04/20 | [phone] | | Medica | | MEDICAID HMO | HEALTH | | 19-Pre | 1 | | id | | | MDCD | | sent | | | | | | [place] | | | | | | + +--------+ +--------+ +---------+--------+ | [employer] | MODA | [id number] | | [phone] | | Medica | [...] Arturo | al/Fam | | 1940 | [phone] | [place] | | | chula | | | 1 (Home) | [address] | + +--------+ +--------+ + + | Kavon Andujar | Person | Self | [birth year] | | [address] | | [place] | al/Fam | | 1940 | [phone] | [place], [place] | | | chula | | | 1 (Home) | [address] | + +--------+ +--------+ + + | Kavon Andujar | Person | Self | [birth year] | | [address] | | [place] | al/Fam | | 1940 | [phone] | [place], [place] | | | chula | | | 1 (Home) | [address] | + +--------+ +--------+ + + Advance Directives + + + + + | Type | Date Recorded | Patient | Explanation | | | | Licensed Midwife | | + + + + + | Power of | | | | | Technology Sales Specialist | | | | + + + [...]
--- OUTSIDE RECORDS SUMMARY | ~2020-08-16 | XMS | Encounter Summary ---
Demographics + + + | Address | [address] | | | [place] [address] | + + + | Home Phone [...] Team Providers + +------+ + | Care Steeplechase Jockey Name | Role | Phone | + [...] [address] | | | | | [place], [place] | [place], [place] | | | | | [address] | [address] | | | | | [phone] | [phone] | | | | | | | [...] 2020 | Office | | [address] [facility] | | | | Visit | | [address] [place] | | | | | | [address] | | | | | | | [...]
--- OUTSIDE RECORDS SUMMARY | ~2020-08-16 | XMS | Encounter Summary ---
Demographics + + + | Address | [address] | | | [place] [address] | + + + | Home Phone [...] Providers + +------+ + | Care Electrical Designer Name | Role | Phone | [...] [address] [place] | [address] [facility] [place] | question) | | | | [address] [facility] [place] | [address] | | | | | [address] | | | | | | [phone] | | | +--------+ + + + [...] Miscellaneous Notes Telephone Encounter - Trinidad Simon Supervisor Motor Vehicle Assembly - 04/06/2020 3:14 PM PDTSt. A IV [...] | | Visit | | [address] [place], [place] | | | | | | [address] | | | | | | | | +--------+ + + + + documented as of this encounter Visit Diagnoses Not on filedocumented in this encounter"
--- OUTSIDE RECORDS SUMMARY | ~2020-08-16 | XMS | Encounter Summary ---
Demographics + + + | Address | [address] | | | [place] [address] | + + + | Home Phone [...] Team Providers + +------+ + | Care Elevated Motorman Name | Role | Phone | + +------+ + | Rahul Silva MD | PCP | | + +------+ + Encounter Details +--------+ + + + + | Date | Type | Department | Care Team | Description | +--------+ + + + + | 05/22/ | Orders Only | [facility] | Farrukh Acuna MD | | | 2018 | | NEPHROLOGY [place] | [address] [place] | | | | | [address] [place] | [address] [place], [place] | | | | | [address] [place], [place] | [address] | | | | | [address] | | | | | | [phone] | | | +--------+ + + + [...] | | | Visit | | [address] [place], [place] | | | | | | [address] | | | | | | | [...] | | | LAB | | | Palestinian | | | | | + + [...]
--- OUTSIDE RECORDS SUMMARY | ~2020-08-16 | XMS | Encounter Summary ---
Demographics + + + | Address | [address] | | | [place] [address] | + + + | Home Phone [...] [place] | | | | | [address] | | + + + + + Care Team Providers + +------+ + | Care Reed Press Feeder Name | Role | Phone | + +------+ + PCP | Unavailable | + +------+ + Encounter Details +--------+ + + + + | Date | Type | Department | Care Team | Description | +--------+ + + + + | 12/22/ | Results | | Other, Faculty | | | 1997 | Only | | [phone] | | +--------+ + + + + [...] | | | | | | 12/22/96 [id number] hours. | | | | | | [...] | | + +---------+ + + | [facility] DEPARTMENT OF | | | [...] | | | | | | | [id number] | | | | | | SPINE, [...]
--- OUTSIDE RECORDS SUMMARY | ~2020-08-16 | XMS | Encounter Summary ---
Demographics + + + | Address | [address] | | | [place] [address] | + + + | Home Phone [...] Team Providers + +------+ + | Care Candy Spreader Helper Name | Role | Phone | + +------+ + | Rahul Silva MD | PCP | | + +------+ + Encounter Details +--------+ + + + + | Date | Type | Department | Care Team | Description | +--------+ + + + + | 10/03/ | Orders Only | [facility] | Collin Mirza, | | | 2016 | | NEPHROLOGY [place] | BATCH UNLOADER [address] | | | | | [address] [place] | [address] | | | | | [address] [place], [place] | [place] | | | | | [address] | [address] | | | | | [phone] | [phone] | | | | | | | [...] | | | Visit | | 160 [place] | | | | | | [address] | | | | | | | [...]
--- OUTSIDE RECORDS SUMMARY | ~2020-08-16 | XMS | Encounter Summary ---
Demographics + + + | Address | [address] | | | [place] [address] | + + + | Home Phone [...] Providers + +------+ + | Care Dry Press Operator Name | Role | Phone | + +------+ + | Rahul Silva MD | PCP | | + +------+ + Encounter Details +--------+ + + + + | Date | Type | Department | Care Team | Description | +--------+ + + + + | 03/01/ | Orders Only | [facility] | Conversion | | | 2019 | | NEPHROLOGY [place] | Transaction, | | | | | [address] | Provider Unknown | | | | | [address] [place] | | | | | | [address] | (Fax) | | | | | [phone] | | | +--------+ + + + [...] | | | Visit | | [facility] | | | | | | [address] | | | | | | | [...] - 1.030 | EXTERNAL | | | [place], | | | LAB | | | [...] | | | LAB | | | [place] | | | | | + + [...]
--- OUTSIDE RECORDS SUMMARY | ~2020-08-16 | XMS | Encounter Summary ---
Demographics + + + | Address | [address] | | | [place] [address] | + + + | Home Phone [...] Team Providers + +------+ + | Care Examining Chair Assembler Name | Role | Phone | [...] + + | 12/21/ | Documentati | [facility] | Alfred, | Other (Ramone live | | 2020 | on | NEPHROLOGY [place] | Charlie Abdi | order sent | | | | [address] [facility] [address] | Reel Operator | confirmation | | | | [address] [place], [place] | | received.) | | | | [address] | | | | | | [phone] | | | +--------+ + + + [...] 2020 | Office | | [address] [facility] | | | | Visit | | [address] [place] | | | | | | [address] | | | | | | | | +--------+ + + + + documented as of this encounter Visit Diagnoses Not on filedocumented in this encounter"
--- OUTSIDE RECORDS SUMMARY | ~2020-08-16 | XMS | Encounter Summary ---
Demographics + + + | Address | [address] | | | [place] [address] | + + + | Home Phone [...] Team Providers + +------+ + | Care Rinkman Name | Role | Phone | + [...] + + | 09/13/ | Telephone | [facility] | Terri Aguilar, | Follow-up | | 2019 | | VASCULAR SURGERY | Securities Dealer | | | | | [address] | | | | | | [place] | | | | | | [address] | | | | | | [phone] | | | +--------+ + + + [...] Miscellaneous Notes Telephone Encounter - Terri Aguilar Securities Dealer - 09/13/2019 11:01 AM PDTSpoke wi th pt's daughter and pt. Pt is doing okay - there was some increased pain at the site, but t he bandages were removed this morning and the pain is much better. Reminded both of post-op instructions. He is scheduled for f/u with [facility] on 09/30/2019. Encouraged both to call back with any questions/concerns. SamP d ocumented in this encounter Plan of Treatment +--------+ + + + + | Date | Type | Specialty | Care Team | Description | +--------+ + + + + | 10/30/ | Virtual | Nephrology | Farrukh Acuna MD | | | 2019 | Office | | [address] [facility] | | | | Visit | | [address] [place] | | | | | | [address] | | | | | | | | +--------+ + + + + documented as of this encounter Visit Diagnoses Not on filedocumented in this encounter"
--- OUTSIDE RECORDS SUMMARY | ~2020-08-16 | XMS | Encounter Summary ---
Demographics + + + | Address | [address] | | | [place] [address] | + + + | Home Phone [...] Providers + +------+ + | Care Pipe Maker Name | Role | Phone | + +------+ + | Rahul Silva MD | PCP | | + +------+ + Encounter Details +--------+ + + + + | Date | Type | Department | Care Team | Description | +--------+ + + + + | 08/19/ | Orders Only | [facility] | Conversion | | | 2017 | | NEPHROLOGY [place] | Transaction, | | | | | [address] | Provider Unknown | | | | | [address] [place] | | | | | | [address] | (Fax) | | | | | [phone] | | | +--------+ + + + [...] HOSPITAL[facility] | | | | | | [address] | | | | | | | [...]
--- OUTSIDE RECORDS SUMMARY | ~2020-08-16 | XMS | Encounter Summary ---
Demographics + + + | Address | [address] | | | [place] [address] | + + + | Home Phone [...] Providers + +------+ + | Care Machine Shorthand Reporter Name | Role | Phone | [...] E | | | | | | ([facility]) | [place] | | | | | | Procedures | [address] | | | | | | VAS Arm | Phone: | | | | | | Bilateral | [phone] | | | | | | Mapping For | Fax: | | | | | | Dialysis | [phone] | | +--------+--------+ + + + + [...] E | | | | | | ([facility]) | [place] | | | | | | Procedures | [address] | | | | | | VAS Arm | Phone: | | | | | | Bilateral | [phone] | | | | | | Mapping For | Fax: | | | | | | Dialysis | [phone] | | +--------+--------+ + + + + Encounter Details +--------+ + + + + | Date | Type | Department | Care Team | Description | +--------+ + + + + | 08/20/ | Hospital | [facility] | Trisha Conner DNP | 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 | VASCULAR SURGERY | [address] | renal disease) ([facility]) | | | | ULTRASOUND [address] | [place], [place] | | | | | [address] | [address] | | | | | [place], [place] | | | | | | [address] | | | | | | [phone] | | | +--------+ + + + [...] | | | | | ([facility]), Secondary | | | | | | | hyperparathyroidism | | | | | | | ([facility]) | | | | | | + [...] | | | Visit | | [address] | | | | | | [address] | | | | | | | [...]
--- OUTSIDE RECORDS SUMMARY | ~2020-08-16 | XMS | Encounter Summary ---
Demographics + + + | Address | [address] | | | [place] [address] | + + + | Home Phone [...] + +------+ + | Care Director Of Dementia Operations Name | Role | Phone | + +------+ + | Mehrdad Bergman | PCP | | + +------+ + Encounter Details +--------+ + + + + | Date | Type | Department | Care Team | Description | +--------+ + + + + | 10/01/ | Telephone | [facility] | Farrukh Acuna MD | | | 2019 | | NEPHROLOGY [place] | [address] [facility] [place] | | | | | [address] [facility] | [address] [place] | | | | | [place] | [address] | | | | | [address] | | | | | | [phone] | | | +--------+ + + + [...] by Friday. Please call them back at [phone] . Detailed message may be left on [...] 2019 | Office | | [address] [facility] | | | | Visit | | [address] [place] | | | | | | [address] | | | | | | | | +--------+ + + + + documented as of this encounter Visit Diagnoses Not on filedocumented in this encounter"
--- OUTSIDE RECORDS SUMMARY | ~2020-08-16 | XMS | Encounter Summary ---
Demographics + + + | Address | [address] | | | [place] [address] | + + + | Home Phone [...] Providers + +------+ + | Care Oracle Brm Developer Name | Role | Phone | [...] | | | [address] | [place] [address] | | | | | [place] [address] | | | | | | [phone] | | | +--------+ + + + [...] 2019 | Office | | [address] [facility] [place] | | | | Visit | | [facility] | | | | | | [address] | | | | | | | [...]
--- OUTSIDE RECORDS SUMMARY | ~2020-08-16 | XMS | Encounter Summary ---
Demographics + + + | Address | [address] | | | [place] [address] | + + + | Home Phone [...] + +------+ + | Care Motion Picture Director Name | Role | Phone | + +------+ + | Rahul Silva MD | PCP | | + +------+ + Encounter Details +--------+ + + + + | Date | Type | Department | Care Team | Description | +--------+ + + + + | 08/20/ | Orders Only | [facility] | Farrukh Acuna MD | Anemia of chronic | | 2019 | | NEPHROLOGY [place] | [address] [place] | renal failure, stage | | | | [address] [place] | 160 [place], [place] | 4 (severe) (HCC) | | | | [address] [place], [place] | [address] | (Primary Dx); Stage | | | | [address] | | 4 chronic kidney | | | | [phone] | | disease (HCC); | | | [...] [place] | | | | | | [address] | | | | | | | [...]
--- OUTSIDE RECORDS SUMMARY | ~2020-08-16 | XMS | Encounter Summary ---
Demographics + + + | Address | [address] | | | [place] [address] | + + + | Home Phone [...] Team Providers + +------+ + | Care Appraiser Personal Property Name | Role | Phone | + +------+ + | Rahul Silva MD | PCP | | + +------+ + Encounter Details +--------+ + + + + | Date | Type | Department | Care Team | Description | +--------+ + + + + | 07/17/ | Orders Only | [facility] | Conversion | | | 2016 | | NEPHROLOGY [place] | Transaction, | | | | | [address] | Provider Unknown | | | | | [address] [place] | | | | | | [address] | (Fax) | | | | | [phone] | | | +--------+ + + + [...] | Visit | | [facility] | | | | | | [address] | | | | | | | [...]
--- OUTSIDE RECORDS SUMMARY | ~2020-08-16 | XMS | Encounter Summary ---
Demographics + + + | Address | [address] | | | [place] [address] | + + + | Home Phone [...] Team Providers + +------+ + | Care Comptroller Name | Role | Phone | + +------+ + | Rahul Silva MD | PCP | | + +------+ + Encounter Details +--------+ + + + + | Date | Type | Department | Care Team | Description | +--------+ + + + + | 10/08/ | Orders Only | [facility] | Farrukh Acuna MD | | | 2015 | | NEPHROLOGY [place] | [address] [place] | | | | | [address] [place] | [address] [place], [place] | | | | | [address] [place], [place] | [address] | | | | | [address] | | | | | | [phone] | | | +--------+ + + + [...] | | | Visit | | [address] [place], [place] | | | | | | [address] | | | | | | | [...]
--- OUTSIDE RECORDS SUMMARY | ~2020-08-16 | XMS | Encounter Summary ---
Demographics + + + | Address | [address] | | | [place] [address] | + + + | Home Phone [...] Team Providers + +------+ + | Care Journeyman Plumber Name | Role | Phone | + +------+ + | Rahul Silva MD | PCP | | + +------+ + Encounter Details +--------+ + + + + | Date | Type | Department | Care Team | Description | +--------+ + + + + | 01/23/ | Orders Only | [facility] | Collin Mirza, | | | 2015 | | NEPHROLOGY [place] | CUSTOMER SUPPLY CHAIN ANALYST [address] | | | | | [address] [place] | [address] | | | | | [address] [place], [place] | [place] | | | | | [address] | [address] | | | | | [phone] | [phone] | | | | | | | [...] [place] | | | | | | [address] | | | | | | | [...] | | | LAB | | | Cymro | | | | | + + [...]
--- OUTSIDE RECORDS SUMMARY | ~2020-08-16 | XMS | Encounter Summary ---
Demographics + + + | Address | [address] | | | [place] [address] | + + + | Home Phone [...] Providers + +------+ + | Care Rn Registry Name | Role | Phone | + [...] [address] | | | | | [place], [place] | [place], [place] | | | | | [address] | [address] | | | | | [phone] | [phone] | | | | | | | [...] 2020 | Office | | [address] [facility] | | | | Visit | | [address] [place] | | | | | | [address] | | | | | | | [...]
--- OUTSIDE RECORDS SUMMARY | ~2020-08-16 | XMS | Encounter Summary ---
Demographics + + + | Address | [address] | | | [place] [address] | + + + | Home Phone [...] Providers + +------+ + | Care Senior Research Executive Name | Role | Phone | [...] + + | 08/26/ | Office | [facility] | Trisha Conner DNP | CKD (chronic kidney | | 2019 | Visit | VASCULAR SURGERY | [address] | disease) stage 5, | | | | [address] [place] | [place] | GFR less than 15 | | | | [place], [place] | [address] | ml/min (HCC) | | | | [address] | | (Primary Dx) | | | | [phone] | Brian Orosco MD | | | | | | [address] | | | | | | [place], [place] | | | | | | [address] | | | | | | [phone] | | | | | | | [...] CV: No peripheral edema, rate regular SKIN: [place], warm, dry without rash/lesion MS: ROM not [...] CV: No peripheral edema, rate regular SKIN: [place], warm, dry without rash/lesion MS: ROM not [...] | | | Visit | | [facility] | | | | | | [address] | | | | | | | [...] | | than 15 ml/min ([facility]) | | + +------+--------+ + + | CBC no Differential | Lab | Routin | CKD (chronic | 1 Occurrences | | | | e | kidney disease) | starting 08/26/2019 | | | | | stage 5, GFR less | until 08/26/2020 | | | | | than 15 ml/min ([facility]) | [...]
--- OUTSIDE RECORDS SUMMARY | ~2020-08-16 | XMS | Encounter Summary ---
Demographics + + + | Address | [address] | | | [place] [address] | + + + | Home Phone [...] [place] | | | | | [address] | | + + + + + Care Team Providers + +------+ + | Care Personal Development Mentor Name | Role | Phone | + [...] [address] | | | | | | [place], [place] | | | | | | [address] | | | | | | [phone] | | | +--------+ + + + [...] as of this encounter Progress Notes Interface, Usps Letter Carrier In - 01/03/2007 5:08 AM PST CLINIC DATE: 12/22/97 Mr. Andujar is referred by Dr. Jerry Smiley in the [place] area. He is currently followed by the Anesthesia Pain Service at [facility], and also recently has been [...] under Dr. Robert Carlson's supervision here at [facility]. His pain continued, exacerbated by [...] procedure at this time. Eric Mcclure M.D. Client Service Representative, Department of Orthopaedics and Rehabilitation AY/sara A cc: Jerry Smiley M.D. (with letter) [address] [facility] [address] [place] [address] Robert Carlson M.D. FAX: [phone] Alina Moise M.D. FAX: [phone] [facility] ClinicFAX: [phone] documented in this encounter Plan of Treatment Not on filedocumented as of this encounter Visit Diagnoses Not on filedocumented in this encounter
--- OUTSIDE RECORDS SUMMARY | ~2020-08-16 | XMS | Encounter Summary ---
Demographics + + + | Address | [address] | | | [place] [address] | + + + | Home Phone [...] Providers + +------+ + | Care Screen Printing Supervisor Name | Role | Phone | [...] + + | 09/01/ | Telephone | [facility] | Brian Orosco MD | Advice Only | | 2019 | | VASCULAR SURGERY | [address] | (surgery) | | | | [address] | [place], [place] | | | | | [place], [place] | [address] | | | | | [address] | [phone] | | | | | [phone] | | | +--------+ + + + [...] transfer the call to a p rovidixie band reamer machine operator was caller made aware that [...] | | | Visit | | [address] [place], [place] | | | | | | [address] | | | | | | | | +--------+ + + + + documented as of this encounter Visit Diagnoses Not on filedocumented in this encounter"
--- OUTSIDE RECORDS SUMMARY | ~2020-08-16 | XMS | Encounter Summary ---
Demographics + + + | Address | [address] | | | [place] [address] | + + + | Home Phone [...] Team Providers + +------+ + | Care Rack Production Worker Name | Role | Phone [...] + + | 08/25/ | Telephone | [facility] | Brian Orosco MD | New Patient (08/26 | | 2019 | | VASCULAR SURGERY | [address] | appointment) | | | | [address] | [place], [place] | | | | | [place], [place] | [address] | | | | | [address] | [phone] | | | | | [phone] | | | +--------+ + + + [...] Miscellaneous Notes Telephone Encounter - Megan Blackwell Generation Engineering Technologist - 08/25/2019 2:08 PM PDTConfirmed appointment for tomorrow. Electronically signed by Megan N Ross, Generation Engineering Technologist at 08/25 2:09 PM PDTTelephone Encounter - [...] transfer the call to a damian munoz lathe operator contact lens was caller made aware that if at [...] | | | Visit | | [address] [place], [place] | | | | | | [address] | | | | | | | | +--------+ + + + + documented as of this encounter Visit Diagnoses Not on filedocumented in this encounter"
--- OUTSIDE RECORDS SUMMARY | ~2020-08-16 | XMS | Encounter Summary ---
Demographics + + + | Address | [address] | | | [place] [address] | + + + | Home Phone [...] Providers + +------+ + | Care Lumber Marker Name | Role | Phone | + +------+ + | Mehrdad Bergman | PCP | | + +------+ + Encounter Details +--------+ + + + + | Date | Type | Department | Care Team | Description | +--------+ + + + + | 06/05/ | Orders Only | [facility] | Ami Cole, | CKD (chronic kidney | | 2019 | | NEPHROLOGY [place] | [employer] | disease) stage 5, | | | | [address] | | GFR less than 15 | | | | [address] | | ml/min ([facility]) | | | | [place], [place] | | (Primary Dx); Anemia | | | | [address] | | of chronic kidney | | | | [phone] | | failure, stage 5 | | [...] as of this encounter Progress Ami Pérez, [employer] - 06/05/2020 2:[address]ette [...] [place] | | | | | | [address] | | | | | | | [...] 15 ml/min ([facility]) | 06/05/2021 | | | | | Anemia of chronic | | | | | | kidney failure, | | | | | | stage 5 ([facility]) | | | [...] 15 ml/min ([facility]) | 06/05/2021 | | | | | Anemia of chronic | | | | | | kidney failure, | | | | | | stage 5 ([facility]) | | | [...] | stage 5 ([facility]) | | | [...] | stage 5 ([facility]) | | | [...] | stage 5 ([facility]) | | | [...] | stage 5 ([facility]) | | | [...] | stage 5 ([facility]) | | | [...] | stage 5 ([facility]) | | | [...] than 15 ml/min ([facility]) - Primary Chronic | | kidney disease, Stage V | + + | Anemia of chronic kidney failure, stage 5 (HCC) | + + | Persistent proteinuria Proteinuria | + + | Essential hypertension Unspecified essential hypertension | + + | Iron deficiency Other disorders of iron metabolism | + + documented in this encounter"
--- OUTSIDE RECORDS SUMMARY | ~2020-08-16 | XMS | Encounter Summary ---
Demographics + + + | Address | [address] | | | [place] [address] | + + + | Home Phone [...] Team Providers + +------+ + | Care Vocational School Teacher Name | Role | Phone | [...] | | | stage 5, GFR | [address] | | | | | | less than | Phone: | | | | | | 15 ml/min | [phone] | | | | | | (HCC) | Fax: | | | | | | Procedures | [phone] | | | | | | VAS [...] | | | stage 5, GFR | [address] | | | | | | less than | Phone: | | | | | | 15 ml/min | [phone] | | | | | | ([facility]) | Fax: | | | | | | Procedures | [phone] | | | | | | VAS [...] + + | 10/20/ | Hospital | [facility] | Trisha Conner DNP | CKD (chronic kidney | | 2019 | Encounter | VASCULAR SURGERY | [address] | disease) stage 5, | | | | ULTRASOUND [address] | [place], [place] | GFR less than 15 | | | | [address] | [address] | ml/min ([facility]) | | | | [place] | | | | | | [address] | | | | | | [phone] | | | +--------+ + + + [...] | | | ([facility]), Secondary | | | | | | | hyperparathyroidism | | | | | | | ([facility]) | | | | | | + [...] | | | ([facility]) | | | | | | + [...] [place] | | | | | | [address] | | | | | | | [...] | | | | | Signed by: Idrsi Wilson Shawn | | Sign Date/Time: 10/21/2019 [...]
--- OUTSIDE RECORDS SUMMARY | ~2020-08-16 | XMS | Encounter Summary ---
Demographics + + + | Address | [address] | | | [place] [address] | + + + | Home Phone [...] Providers + +------+ + | Care Environmental Technician Name | Role | Phone | [...] + + | 09/01/ | Telephone | [facility] | Farrukh Acuna MD | Other | | 2019 | | NEPRHOLOGY [place] | [address] | | | | | [address] | [address] [place], [place] | | | | | [address] [place], [place] | [address] | | | | | [address] | | | | | | [phone] | | | +--------+ + + + [...] Miscellaneous Notes Telephone Encounter - Trinidad Simon Slip Presser - 09/02/2019 9:46 AM Henrry Acuna if the patients provider would like to discuss lab results they can call his cell rolf owen at any time. Called to relay message to krys but was unable to reach her I left thomas jennings with information and clinic name and number for her to call back with any questions.Elect ronically signed by Trinidad Simon, Slip Presser at 09/02/2019 9:48 AM Chandrika e Linda - Laureen Gill V - 09/01/2019 1:22 PM PDTProvider: [place]/Surgery Concerns patient and daughter called wanting to ask Armand if he can call him to discuss lab result a nd also concerns of the surgery due to his 2 blood clots on his arms. Surgery is on 09/10/19 . Please call them back at [phone]. Detailed message may be left on phone: Yes Last OV: 07/26/19 Next OV: 10/04/19 If this is a symptom based call and you were unable to immediately transfer the call to [facility] staff, was caller made aware that if at any timeshefeels it is an emergency they shoul d call 911 or go to the nearest emergency room? No Is coal chute worker needed: no documented in this enc ounter [...] | | | Visit | | [address] [place], [place] | | | | | | [id number] | | | | | | | | +--------+ + + + + documented as of this encounter Visit Diagnoses Not on filedocumented in this encounter"
--- OUTSIDE RECORDS SUMMARY | ~2020-08-16 | XMS | Encounter Summary ---
Demographics + + + | Address | [address] | | | [place] [address] | + + + | Home Phone [...] Providers + +------+ + | Care Cotton Stripper Name | Role | Phone | [...] | | ([facility]) | [place], [place] | | | | | | Procedures | [address] | | | | | | VAS Arm | Phone: | | | | | | Bilateral | [phone] | | | | | | Mapping For | Fax: | | | | | | Dialysis | [phone] | | +--------+--------+ + + + + [...] + + | 07/30/ | Telephone | [facility] | Trisha Conner DNP | Referral Consult | | 2019 | | CARDIOTHORACIC | [address] | | | | | SURGERY [address] | [place] [address] [place], [place] | | | | | [address] | [address] | | | | | [place], [place] | | | | | | [address] | | | | | | [phone] | | | +--------+ + + + [...] would like imaging to be done at [facility] documented in this encounter Plan of Treatment +--------+ + + + + | Date | Type | Specialty | Care Team | Description | +--------+ + + + + | 10/30/ | Virtual | Nephrology | Farrukh Acuna MD | | | 2019 | Office | | [address] [facility] | | | | Visit | | [address] [place] | | | | | | [address] | | | | | | | [...]
--- OUTSIDE RECORDS SUMMARY | ~2020-08-16 | XMS | Encounter Summary ---
Demographics + + + | Address | [address] | | | [place] [address] | + + + | Home Phone [...] Providers + +------+ + | Care Scientific Programmer Analyst Name | Role | Phone [...] + + | 12/02/ | Documentati | [facility] | Simon, | Results (11/29/19) | | 2020 | on | NEPHROLOGY [place] | Trinidda [facility] | | | | | [address] | Still Operator Brandy | | | | | [address] [place], [place] | | | | | | [address] | | | | | | [phone] | | | +--------+ + + + [...] 2019 | Office | | [address] [facility] | | | | Visit | | [address] [place], [place] | | | | | | [address] | | | | | | | [...]
--- OUTSIDE RECORDS SUMMARY | ~2020-08-16 | XMS | Encounter Summary ---
Demographics + + + | Address | [address] | | | [place] [address] | + + + | Home Phone [...] Team Providers + +------+ + | Care Broaching Machine Set Up Operator Name | Role [...] [place] | | | | | | [address] | (Fax) | | | | | [phone] | | | +--------+ + + + [...] | | Visit | | [facility] | | | | | | [address] | | | | | | | [...]
--- OUTSIDE RECORDS SUMMARY | ~2020-08-16 | XMS | Encounter Summary ---
Demographics + + + | Address | [address] | | | [place] [address] | + + + | Home Phone [...] [address] | | | | | [place], [place] | [place], [place] | | | | | [address] | [address] | | | | | [phone] | [phone] | | | | | | | [...] | | | Visit | | [address] [place] | | | | | | [address] | | | | | | | [...]
--- OUTSIDE RECORDS SUMMARY | ~2020-08-16 | XMS | Encounter Summary ---
Demographics + + + | Address | [address] | | | [place] [address] | + + + | Home Phone [...] Providers + +------+ + | Care Press Hand Name | Role | Phone | + +------+ + | Rahul Silva MD | PCP | | + +------+ + Encounter Details +--------+ + + + + | Date | Type | Department | Care Team | Description | +--------+ + + + + | 10/10/ | Orders Only | [facility] | Farrukh Acuna MD | | | 2013 | | NEPHROLOGY [place] | [address] [place] | | | | | [address] [place] | [address] [place], [place] | | | | | [address] [place], [place] | [address] | | | | | [address] | | | | | | [phone] | | | +--------+ + + + [...] HOSPITAL[facility] | | | | | | [address] | | | | | | | [...] | | | LAB | | | Finnish | | | | | + + [...]
--- OUTSIDE RECORDS SUMMARY | ~2020-08-16 | XMS | Encounter Summary ---
Demographics + + + | Address | [address] | | | [place] [address] | + + + | Home Phone [...] Providers + +------+ + | Care Filament Welder Name | Role | Phone | [...] + + | 05/18/ | Telephone | [facility] | Marilia Sandy | Other (ER report | | 2020 | | NEPRHOLOGY [place] | Rory RN | reviewed from | | | | [address] | | Sheila GILLIS | | | | [address] [place], [place] | | 05/16/20/No changes) | | | | [address] | | | | | | [phone] | | | +--------+ + + + [...] PM PDTDr Acuna reviewed ER report from [facility] from DOS 05/16/2020. Per Dr Acuna, [...] he has been in and out of [facility] and has had lot of labs drawn. He is do for his 2 Week BMP and CBC. Can you please contact [facility] to get these 2 test result for Armand to review Please call them back at [phone]. Detailed message may be left on phone: Yes Last OV: 03/27/2020 Next OV: 06/05/2020 If this is a symptom based call and you were unable to immediately [facility] the [facility] staff, was caller made aware that if at any timehefeels it is an emergency they should call 911 or go to the nearest emergency room? N/A Is hydroelectric station chief needed: no documented in this encounter Plan of Treatment +--------+ + + + + | Date | Type | Specialty | Care Team | Description | +--------+ + + + + | 10/30/ | Virtual | Nephrology | Farrukh Acuna MD | | | 2019 | Office | | [address] [facility] | | | | Visit | | [address] [place] | | | | | | [address] | | | | | | | | +--------+ + + + + documented as of this encounter Visit Diagnoses Not on filedocumented in this encounter"
--- OUTSIDE RECORDS SUMMARY | ~2020-08-16 | XMS | Encounter Summary ---
Demographics + + + | Address | [address] | | | [place] [address] | + + + | Home Phone [...] + +------+ + | Care Real Estate Paralegal Name | Role | Phone | [...] (ear) | | | | [address] [facility] [address] | [address] | | | | | [place] | [address] | | | | | [address] | | | | | | [phone] | | | +--------+ + + + [...] Miscellaneous Notes Telephone Encounter - Sarah Manzanares, Gi Asst - 08/07/2016 3:14 PM PDTCalled a nd [...] dry elephone Breann jackson - Sarah Manzanares, Gi Asst - 08/07/2016 11:03 AM PDTPatient daughter calls [...] | | Visit | | [address] [place], [place] | | | | | | [address] | | | | | | | | +--------+ + + + + documented as of this encounter Visit Diagnoses Not on filedocumented in this encounter"
--- OUTSIDE RECORDS SUMMARY | ~2020-08-16 | XMS | Encounter Summary ---
Demographics + + + | Address | [address] | | | [place] [address] | + + + | Home Phone [...] Team Providers + +------+ + | Care Highway Commissioner Name | Role | Phone | [...] | | NEPHROLOGY [place] | [address] [facility] [address] | | | | | [address] [facility] | [address] [place] | | | | | [place] | [address] | | | | | [address] | | | | | | [phone] | | | +--------+ + + + [...] by Friday. Please call them back at [phone] . Detailed message may be left on [...] [place] | | | | | | [address] | | | | | | | | +--------+ + + + + documented as of this encounter Visit Diagnoses Not on filedocumented in this encounter"
--- OUTSIDE RECORDS SUMMARY | ~2020-08-16 | XMS | Encounter Summary ---
Demographics + + + | Address | [address] | | | [place] [address] | + + + | Home Phone [...] Team Providers + +------+ + | Care Side Splitter Name | Role | Phone | [...] [address] | | | | | [place], [place] | [place], [place] | | | | | [address] | [address] | | | | | [phone] | [phone] | | | | | | | [...] 2020 | Office | | [address] [facility] | | | | Visit | | [address] [place] | | | | | | [address] [...]
--- OUTSIDE RECORDS SUMMARY | ~2020-08-16 | XMS | Encounter Summary ---
Demographics + + + | Address | [address] | | | [place] [address] | + + + | Home Phone [...] Team Providers + +------+ + | Care Transport Conductor Name | Role | Phone | [...] Refill | [facility] | Farrukh Acuna MD | Medication Refill | | 2019 | | NEPHROLOGY [place] | [address] [place] | | | | | [address] | [address] [place], [place] | | | | | [address] | [address] | | | | | [place], [place] | | | | | | [address] | | | | | | [phone] | | | +--------+--------+ + + + [...] - 03/16/2020 11:05 AM PDTReceived fax from [facility] [place] requesting prescription for Torsemide. Torsemide prescription sent on 03/14 . Called [facility] to confirm they received electronic prescription. They received prescriptio n but were unable to fill it as it is too soon to fill. Their records show it was filled on 03/14. Appears that prescription was sent to both [facility] and [facility]. 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 His primary pharmacy is [facility] and he was only getting the Torse mide at [facility] because [facility] was out of Torsemide. She asked that [facility] pharmacy be re moved from preferred pharmacy list. No further questions at this time. documented in this encounter Plan of Treatment +--------+ + + + + | Date | Type | Specialty | Care Team | Description | +--------+ + + + + | 10/30/ | Virtual | Nephrology | Farrukh Acuna MD | | 2019 | Office | | [address] [facility] | | | | Visit | | [address] [place], [place] | | | | | | [address] | | | | | | | [...]
--- OUTSIDE RECORDS SUMMARY | ~2020-08-16 | XMS | Encounter Summary ---
Demographics + + + | Address | [address] | | | [place] [address] | + + + | Home Phone [...] Providers + +------+ + | Care Metal Tester Name | Role | Phone | + +------+ + | Rahul Silva MD | PCP | | + +------+ + Encounter Details +--------+ + + + + | Date | Type | Department | Care Team | Description | +--------+ + + + + | 02/24/ | Orders Only | [facility] | Conversion | | | 2016 | | NEPHROLOGY [place] | Transaction, | | | | | [address] | Provider Unknown | | | | | [address] [place] | | | | | | [address] | (Fax) | | | | | [phone] | | | +--------+ + + + [...] | | Visit | | [facility] | | | | | | [address] | | | | | | | [...] - 1.030 | EXTERNAL | | | [place], | | | LAB | | | [...] | | | LAB | | | [place] | | | | | + + [...]
--- OUTSIDE RECORDS SUMMARY | ~2020-08-16 | XMS | Encounter Summary ---
Demographics + + + | Address | [address] | | | [place] [address] | + + + | Home Phone [...] Team Providers + +------+ + | Care Promotions Director Name | Role | Phone | [...] | | | [address] | [place] [address] | | | | | [place] [address] | | | | | | [phone] | | | +--------+ + + + [...] | | | Visit | | [address] [place] | | | | | | [address] | | | | | | | [...]
--- OUTSIDE RECORDS SUMMARY | ~2020-08-16 | XMS | Encounter Summary ---
Demographics + + + | Address | [address] | | | [place] [address] | + + + | Home Phone [...] Author | [facility] | | | [...] Providers + +------+ + | Care Rubber Mill Operator Name | Role | Phone | + +------+ + PCP | Unavailable | + +------+ + Encounter Details +--------+ + + + + | Date | Type | Department | Care Team | Description | +--------+ + + + + | 05/22/ | [facility] | [facility] | Nelson Lutz MD | | | 1998 | Encounter | MED CTR GENERIC OP | [address], [place] | | | | | CONV DEPT [address] | [address] | | | | | [place], | [address] | | | | | [place] [address] | | | | | | [phone] | | | +--------+ + + + [...] 2019 | Office | | [address] [facility] | | | | Visit | | [address] [place] | | | | | | [address] | | | | | | | | +--------+ + + + + documented as of this encounter Visit Diagnoses Not on filedocumented in this encounter"
--- OUTSIDE RECORDS SUMMARY | ~2020-08-16 | XMS | Encounter Summary ---
Demographics + + + | Address | [address] | | | [place] [address] | + + + | Home Phone [...] Team Providers + +------+ + | Care Spice Fumigator Name | Role | Phone | + +------+ + | Rahul Silva MD | PCP | | + +------+ + Encounter Details +--------+ + + + + | Date | Type | Department | Care Team | Description | +--------+ + + + + | 08/19/ | Orders Only | [facility] | Farrukh Acuna MD | | | 2018 | | NEPHROLOGY [place] | [address] [place] | | | | | [address] [place] | [address] [place], [place] | | | | | [address] [place], [place] | [address] | | | | | [address] | | | | | | [phone] | | | +--------+ + + + [...] | | | Visit | | [address] [place], [place] | | | | | | [address] | | | | | | | [...]
--- OUTSIDE RECORDS SUMMARY | ~2020-08-16 | XMS | Encounter Summary ---
Demographics + + + | Address | [address] | | | [place] [address] | + + + | Home Phone [...] Team Providers + +------+ + | Care Sealer Sander Name | Role | Phone | + +------+ + | Rahul Silva MD | PCP | | + +------+ + Encounter Details +--------+---------+ + + + | Date | Type | Department | Care Team | Description | +--------+---------+ + + + | 12/06/ | Office | [facility] | Farrukh Acuna MD | CKD (chronic kidney | | 2020 | Visit | NEPHROLOGY [place] | [address] [place] | disease) stage 5, | | | | [address] | [address] [place], [place] | GFR less than 15 | | | | [address] | [address] | ml/min (HCC) | | | | [place], [place] | | (Primary Dx); Anemia | | | | [address] | | of chronic kidney | | | | [phone] | | failure, stage 5 | | [...] Also: I see no need for acute CREDIT ASSESSMENT ANALYST. I see no need to send him [...] 10/2016 with severe pneumonia, severe ZEKE; needed CREDIT ASSESSMENT ANALYST for ~5 weeks b efore renal function recovery mid 12/2016. He was admitted to [facility] for 3 nights in July 2016 for [...] 10/2016 with severe pneumonia, severe ZEKE; needed CREDIT ASSESSMENT ANALYST for ~5 weeks b efore renal function [...] Also: I see no need for acute CREDIT ASSESSMENT ANALYST. I see no need to send him [...] 2019 | Office | | [address] [facility] | | | | Visit | | [address] [facility] | | | | | | [address] | | | | | | | | +--------+ + + + + documented as of this encounter Visit Diagnoses + + | Diagnosis | + + | CKD (chronic kidney disease) stage 5, GFR less than 15 ml/min ([facility]) - Primary Chronic | | kidney disease, Stage V | + + | Anemia of chronic kidney failure, stage 5 ([facility]) | + + | Edema of [...]
--- OUTSIDE RECORDS SUMMARY | ~2020-08-16 | XMS | Encounter Summary ---
Demographics + + + | Address | [address] | | | [place] [address] | + + + | Home Phone [...] Providers + +------+ + | Care Pourer Crane Ladle Name | Role | Phone | + [...] + + | 09/07/ | Telephone | [facility] | Sandy Gomez, | Surgery Appointment | | 2019 | | VASCULAR SURGERY | RN | | | | | [address] | | | | | | [address] [place] | | | | | | [address] | | | | | | [phone] | | | +--------+ + + + [...] 2019 | Office | | [address] [facility] | | | | Visit | | [address] [place] | | | | | | [address] | | | | | | | | +--------+ + + + + documented as of this encounter Visit Diagnoses Not on filedocumented in this encounter"
--- OUTSIDE RECORDS SUMMARY | ~2020-08-16 | XMS | Encounter Summary ---
Demographics + + + | Address | [address] | | | [place] [address] | + + + | Home Phone [...] Providers + +------+ + | Care Stone Planer Name | Role | Phone | + [...] | | | [address] [place] | [place] [address] | | | | | [place] [address] | | | | | | [phone] | | | +--------+ + + + [...] [place] | | | | | | [address] | | | | | | | [...]
--- OUTSIDE RECORDS SUMMARY | ~2020-08-16 | XMS | Encounter Summary ---
Demographics + + + | Address | [address] | | | [place] [address] | + + + | Home Phone [...] | | | [address] [place] | [place] [address] | | | | | [place] [address] | | | | | | [phone] | | | +--------+ + + + [...] | | [address] [facility] [address] | | | | Visit | | [address] [place] | | | | | | [address] | | | | | | | [...]
--- OUTSIDE RECORDS SUMMARY | ~2020-08-16 | XMS | Encounter Summary ---
Demographics + + + | Address | [address] | | | [place] [address] | + + + | Home Phone [...] Providers + +------+ + | Care Social Media Designer Name | Role | Phone [...] [address] | (cancellation) | | | | [place], | [place], [place] | | | | | [place] [address] | [address] | | | | | [phone] | | | +--------+ + + + [...] with Dr. Magana at 1pm for a HOST/HOSTESS consult due to not feeling well. Appointment [...] | | | Visit | | [address] [place], [place] | | | | | | [address] | | | | | | | | +--------+ + + + + documented as of this encounter Visit Diagnoses Not on filedocumented in this encounter"
--- OUTSIDE RECORDS SUMMARY | ~2020-08-16 | XMS | Encounter Summary ---
Demographics + + + | Address | [address] | | | [place] [address] | + + + | Home Phone [...] + | 02/16/ | Abstract | [facility] | Jose L Magana, | PAOLO (obstructive | | 2013 | | PULMONARY [address] | MD [address] | sleep apnea) | | | | [place] Tonya Castaneda, | TRE CUEVAS | (Primary Dx); COPD | | | | [place] [address] | [address] | (chronic obstructive | | | | [phone] | | pulmonary disease) | | | | | | ([facility]) | +--------+ + + + [...] | | | Visit | | [facility] | | | | | | [address] | | | | | | | [...]
--- OUTSIDE RECORDS SUMMARY | ~2020-08-16 | XMS | Encounter Summary ---
Demographics + + + | Address | [address] | | | [place] [address] | + + + | Home Phone [...] + +------+ + | Care Director Of Human Resources Name | Role | [...] + + | 09/24/ | Telephone | [facility] | Farrukh Acuna MD | Lab Results | | 2019 | | NEPHROLOGY [place] | [address] [place] | | | | | [address] [place] | [facility] [place] | | | | | [address] [place], [place] | [address] | | | | | [address] | | | | | | [phone] | | | +--------+ + + + [...] Notes Telephone Encounter - Trinidad Simon Medical Staff Coordinator - 09/24/2019 2:49 PM PDTDrLedy bloom reviewed labs and stated that the patient labs show that he is stable. Called Charlotte and informed her of this. She verbalized understanding and had no further que stions at this time.Electronically signed by Trinidad Simon, Medical Staff Coordinator at 2018 3:22 PM PDTTelephone Encounter - Trinidad Simon, Medical Staff Coordinator - 09/24/2019 2:46 PM PDTPatients daughter called [...] 2019 | Office | | [address] [facility] | | | | Visit | | [address] [place] | | | | | | [address] | | | | | | | | +--------+ + + + + documented as of this encounter Visit Diagnoses Not on filedocumented in this encounter"
--- OUTSIDE RECORDS SUMMARY | ~2020-08-16 | XMS | Encounter Summary ---
Demographics + + + | Address | [address] | | | [place] [address] | + + + | Home Phone [...] [place] | | | | | [address] | | + + + + + Care Team Providers + +------+ + | Care Arch Cushion Press Operator Name | Role | Phone | + +------+ + PCP | Unavailable | + +------+ + Encounter Details +--------+ + + + + | Date | Type | Department | Care Team | Description | +--------+ + + + + | 03/30/ | Results | | Other, Faculty | | | 1992 | Only | | [phone] | | +--------+ + + + + [...] | | + +---------+ + + | [facility] DEPARTMENT OF | | [...] | | | | | | | [id number] AND | | | | | | [...] | | + +---------+ + + | [facility] DEPARTMENT OF | | [...] | | + +---------+ + + | [facility] DEPARTMENT OF | | [...] | | + +---------+ + + | [facility] DEPARTMENT OF | | [...] | | | | | | | [id number] | | | | | | CHEST: [...] | | + +---------+ + + | [facility] DEPARTMENT OF | | [...] | | | | | | | [id number] | | | | | | CHEST: [...] | | + +---------+ + + | [facility] DEPARTMENT OF | | [...] | | | | | | | [id number], | | | | | | PORTABLE, [...] | | + +---------+ + + | [facility] DEPARTMENT OF | | [...] | | | | | | | [id number], | | | | | | PORTABLE, [...] and | | | | | | [place] Ganzcatheter are | | | | | [...] | | + +---------+ + + | [facility] DEPARTMENT OF | | [...] | | | | | | in [facility]. | | | | | [...] | | | | | | a [place]-Lupe catheter | | | | | | [...] | | | | placement of a [place]-Lupe | | | | | | catheter. CHEST, | | | | | | SINGLE AP PORTABLE: | | | | | | 03-31-93 AT 1000 HOURS | | | | | | FINDINGS: Since the | | | | | | prior study, the | | | | | | [place]-Lupe catheter has | | | | | [...] IMPRESSION: | | | | | | [place]-Lupe catheter | | | | | | [...] The | | | | | | Louisville-Lupe catheter | | | | | | [...] and | | | | | | [place]-Lupe catheter | | | | | | [...] endotracheal | | | | | | tube,Louis[place]-Lupe catheter | | | | | | [...] | | | | | | a [place]-Lupe catheter | | | | | | [...] | | | | placement of a [place]-Lupe | | | | | | catheter. CHEST, | | | | | | SINGLE AP PORTABLE: | | | | | | 03-31-93 AT 1000 HOURS | | | | | | FINDINGS: Since the | | | | | | prior study, the | | | | | | [place]-Lupe catheter has | | | | | [...] IMPRESSION: | | | | | | [place]-Lupe catheter | | | | | | [...] The | | | | | | [place]-Lupe catheter | | | | | | [...] and | | | | | | [place]-Lupe catheter | | | | | | [...] endotracheal | | | | | | tube,[place]-Lupe catheter | | | | | | [...] | | | | | | a [place]-Lupe catheter | | | | | | [...] | | | | placement of a [place]-Lupe | | | | | | catheter. CHEST, | | | | | | SINGLE AP PORTABLE: | | | | | | 03-31-93 AT 1000 HOURS | | | | | | FINDINGS: Since the | | | | | | prior study, the | | | | | | [place]-Lupe catheter has | | | | | [...] IMPRESSION: | | | | | | [place]-Lupe catheter | | | | | | [...] The | | | | | | [place]-Lupe catheter | | | | | | [...] and | | | | | | [place]-Lupe catheter | | | | | | [...] endotracheal | | | | | | tube,[place]-Lupe catheter | | | | | | [...] | | + +---------+ + + | [facility] DEPARTMENT OF | | [...] | | | | | | a [place]-Lupe catheter | | | | | | [...] | | | | placement of a [place]-Lupe | | | | | | catheter. CHEST, | | | | | | SINGLE AP PORTABLE: | | | | | | 03-31-93 AT 1000 HOURS | | | | | | FINDINGS: Since the | | | | | | prior study, the | | | | | | [place]-Lupe catheter has | | | | | [...] IMPRESSION: | | | | | | [place]-Lupe catheter | | | | | | [...] The | | | | | | [place]-Lupe catheter | | | | | | [...] and | | | | | | [place]-Lupe catheter | | | | | | [...] endotracheal | | | | | | tube,Louis[place]-Lupe catheter | | | | | | [...] | | + +---------+ + + | [facility] DEPARTMENT OF | | [...] | | | | | | a [place]-Lupe catheter | | | | | | [...] | | | | placement of a [place]-Lupe | | | | | | catheter. CHEST, | | | | | | SINGLE AP PORTABLE: | | | | | | 03-31-93 AT 1000 HOURS | | | | | | FINDINGS: Since the | | | | | | prior study, the | | | | | | [place]-Lupe catheter has | | | | | [...] IMPRESSION: | | | | | | [place]-Lupe catheter | | | | | | [...] The | | | | | | [place]-Lupe catheter | | | | | | [...] and | | | | | | [place]-Lupe catheter | | | | | | [...] endotracheal | | | | | | tube,Louis[place]-Lupe catheter | | | | | | [...] | | + +---------+ + + | [facility] DEPARTMENT OF | | [...] | | | | | | a [place]-Lupe catheter | | | | | | [...] | | | | placement of a [place]-Lupe | | | | | | catheter. CHEST, | | | | | | SINGLE AP PORTABLE: | | | | | | 03-31-93 AT 1000 HOURS | | | | | | FINDINGS: Since the | | | | | | prior study, the | | | | | | [place]-Lupe catheter has | | | | | [...] IMPRESSION: | | | | | | [place]-Lupe catheter | | | | | | [...] The | | | | | | [place]-Lupe catheter | | | | | | [...] and | | | | | | [place]-Lupe catheter | | | | | | [...] endotracheal | | | | | | tube,Louis[place]-Lupe catheter | | | | | | [...] | | + +---------+ + + | [facility] DEPARTMENT OF | | [...] | | | | | | a [place]-Lupe catheter | | | | | | [...] | | | | placement of a [place]-Lupe | | | | | | catheter. CHEST, | | | | | | SINGLE AP PORTABLE: | | | | | | 03-31-93 AT 1000 HOURS | | | | | | FINDINGS: Since the | | | | | | prior study, the | | | | | | [place]-Lupe catheter has | | | | | [...] IMPRESSION: | | | | | | Louisville-Lupe catheter | | | | | | [...] The | | | | | | Louisville-Lupe catheter | | | | | | [...] and | | | | | | Louisville-Lupe catheter | | | | | | [...] endotracheal | | | | | | tube,Louis[place]-Lupe catheter | | | | | | [...] | | + +---------+ + + | [facility] DEPARTMENT OF | | | | | RADIOLOGY | | | | + +---------+ + + documented in this encounter Visit Diagnoses Not on filedocumented in this encounter"
--- OUTSIDE RECORDS SUMMARY | ~2020-08-16 | XMS | Encounter Summary ---
Demographics + + + | Address | [address] | | | [place] [address] | + + + | Home Phone [...] Team Providers + +------+ + | Care Slip Cover Sewer Name | Role | Phone | [...] [address] | | | | | [place], [place] | [place], [place] | | | | | [address] | [address] | | | | | [phone] | [phone] | | | | | | | [...] 2020 | Office | | [address] [facility] | | | | Visit | | [address] [place] | | | | | | [address] | | | | | | | [...]
--- OUTSIDE RECORDS SUMMARY | ~2020-08-16 | XMS | Encounter Summary ---
Demographics + + + | Address | [address] | | | [place] [address] | + + + | Home Phone [...] Team Providers + +------+ + | Care Lens Cleaner Name | Role | Phone | + +------+ + | Rahul Silva MD | PCP | | + +------+ + Encounter Details +--------+ + + + + | Date | Type | Department | Care Team | Description | +--------+ + + + + | 06/12/ | Orders Only | [facility] | Farrukh Acuna MD | | | 2017 | | NEPHROLOGY [place] | [address] [place] | | | | | [address] [place] | [address] [place], [place] | | | | | [address] [place], [place] | [address] | | | | | [address] | | | | | | [phone] | | | +--------+ + + + [...] | | | Visit | | 160 [place], [place] | | | | | | [address] | | | | | | | [...]
--- OUTSIDE RECORDS SUMMARY | ~2020-08-16 | XMS | Encounter Summary ---
Demographics + + + | Address | [address] | | | [place] [address] | + + + | Home Phone [...] Team Providers + +------+ + | Care Scouts Name | Role | Phone | + +------+ + | Rahul Silva MD | PCP | | + +------+ + Encounter Details +--------+ + + + + | Date | Type | Department | Care Team | Description | +--------+ + + + + | 12/19/ | Orders Only | [facility] | Conversion | | | 2016 | | NEPHROLOGY [place] | Transaction, | | | | | [address] | Provider Unknown | | | | | [address] [place] | | | | | | [address] | (Fax) | | | | | [phone] | | | +--------+ + + + [...] | | | Visit | | [facility] | | | | | | [address] [...]
--- OUTSIDE RECORDS SUMMARY | ~2020-08-16 | XMS | Encounter Summary ---
Demographics + + + | Address | [address] | | | [place] [address] | + + + | Home Phone [...] + + | 02/27/ | Documentati | [facility] | Simon, | Results (bmp | | 2019 | on | NEPHROLOGY [place] | [facility] | 02/24/20) | | | | [address] | [employer] | | | | | [address] | | | | | | [place], [place] | | | | | | [address] | | | | | | [phone] | | | +--------+ + + + [...] 2019 | Office | | [address] [facility] | | | | Visit | | [address] [facility] | | | | | | [address] | | | | | | | [...]
--- OUTSIDE RECORDS SUMMARY | ~2020-08-16 | XMS | Encounter Summary ---
Demographics + + + | Address | [address] | | | [place] [address] | + + + | Home Phone [...] + +------+ + | Care Dental Office Assistant Name | Role | Phone [...] + + | 05/18/ | Telephone | [facility] | Marilia Sandy | Other (ER report | | 2020 | | NEPRHOLOGY [place] | Rory RN | reviewed from | | | | [address] | | Sheila GILLIS | | | | [address] [place], [place] | | 05/16/20/No changes) | | | | [address] | | | | | | [phone] | | | +--------+ + + + [...] PM PDTDr Acuna reviewed ER report from [facility] from [facility] 05/16/2020. Per Dr Acuna, [...] he has been in and out of [place] [facility] pt and has had lot of labs drawn. He is do for his 2 Week BMP and CBC. Can you please contact [facility] to get these 2 test result for Armand to review Please call them back at [phone]. Detailed message may be left on phone: Yes Last OV: 03/27/2020 Next OV: 06/05/2020 If this is a symptom based call and you were unable to immediately [facility] the [facility], was caller made aware that if at any timehefeels it is an emergency they should call 911 or go to the nearest emergency room? N/A Is plating technician needed: no documented in this encounter Plan [...] [place] | | | | | | [address] | | | | | | | | +--------+ + + + + documented as of this encounter Visit Diagnoses Not on filedocumented in this encounter"
--- OUTSIDE RECORDS SUMMARY | ~2020-08-16 | XMS | Encounter Summary ---
Demographics + + + | Address | [address] | | | [place] [address] | + + + | Home Phone [...] [place] | | | | | [address] | | + + + + + Care Team Providers + +------+ + | Care Urology Surgeon Name | Role | Phone | [...] [address] | | | | | | [place], [place] | | | | | | [address] | | | | | | [phone] | | | +--------+ + + + [...] as of this encounter Progress Notes Interface, Melter Supervisor Electric Arc Furnace In - 01/22/2007 3:04 AM PST CLINIC DATE: 06/07/97 NEUROLOGY CLINIC HISTORY OF PRESENT ILLNESS: Mr. Andujar is a 56 year-old male who is being evaluated in the Clinic for problems with balance and tremulousness of both upper extremities. He has been referred to this Clinic by Dr. Valles from [place], [place], and has also previously undergone extensive evaluations in the Neurosurgical Clinic and at Vascular Surgery at [facility]. His most recent hospitalization to [facility] was December 28, 1996, when he underwent [...] evaluation in the Pain Management Clinic at [facility] and previous trials of Neurontin and mexiletine hydrochloride apparently appears to have been unsuccessful. Shortly following his December hospitalization at [facility], Mr. Andujar apparently became comatose in January from an accidental overdose of Darvon for which he was admitted to [facility] in [place], [place]. The details pertaining to this hospitalization are currently not available but as per Mr. Andujar, he was in a coma for a six day period and upon recovery noted tremulousness of both upper extremities, worse on his left than on his right. Prior to his hospitalization at [facility] and following his discharge from [facility], he apparently was ambulating with crutches since the stump pain precluded the use of his left lower extremity prosthesis. Since his discharge from [facility], however, he has been experiencing increasing problems with balance and apparently has fallen on several occasions. The head CT-scan that was done at [facility], dated February 07, 1997, reveals a low attenuation area in the left anterior basal ganglia felt to represent a small lacunar infarct, with no other significant abnormality. Mr. Andujar states that during the course of his hospitalization at [facility] he apparently fell on three occasions sustaining occipital head trauma but did not undergo subsequent brain imaging studies. His stay at [facility] lasted two weeks. By his [...] Mr. Andujar specifically denies impairment of hand team leader/research psychologist, impaired strength in either upper extremity or [...] migraines, hypertension, and arthritis. SOCIAL HISTORY: Mr. Adnujar currently lives in a Foster Home in [place], [place]. 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 He currently smokes one-half [id number] since age 23. Denies current alcohol use [...] in turn led to his hospitalization at [facility] in January 1997 for coma [...] procedures for pain relief. Michelle Landon M.D. Felt Hat Inspector And Packer, Neurology GN:fermin C: 06/28/97 cc: RUBIA VALLES MD [address] [facility] [address] Alina Moise M.D. Professor and Top Printing Press Operator, Division of Neurosurgery Robert Carlson M.D. Professor, Vascular Surgery documented in this encounter Plan of Treatment Not on filedocumented as of this encounter Visit Diagnoses Not on filedocumented in this encounter"
--- OUTSIDE RECORDS SUMMARY | ~2020-08-16 | XMS | Encounter Summary ---
Demographics + + + | Address | [address] | | | [place] [address] | + + + | Home Phone [...] + + | 08/09/ | Documentati | [facility] | Simon, | Other ([place] | | 2019 | on | NEPHROLOGY [place] | Charlie Abdi | ER note 08/01/20) | | | | [address] | Pipe Recovery Specialist | | | | | [facility] [place] | | | | | | [address] | | | | | | [phone] | | | +--------+ + + + [...] [place] | | | | Visit | | [address] [place] | | | | | | [address] | | | | | | | [...]
--- OUTSIDE RECORDS SUMMARY | ~2020-08-16 | XMS | Encounter Summary ---
Demographics + + + | Address | [address] | | | [place] [address] | + + + | Home Phone [...] Providers + +------+ + | Care Project Control Manager Name | Role | Phone | + +------+ + | Rahul Silva MD | PCP | | + +------+ + Encounter Details +--------+---------+ + + + | Date | Type | Department | Care Team | Description | +--------+---------+ + + + | 10/04/ | Office | [facility] | Farrukh Acuna MD | CKD (chronic kidney | | 2019 | Visit | NEPHROLOGY [place] | [address] [place] | disease) stage 5, | | | | [address] | [address] [place], [place] | GFR less than 15 | | | | [address] | [address] | ml/min (HCC) | | | | [place], [place] | | (Primary Dx); Anemia | | | | [address] | | of chronic kidney | | | | [phone] | | failure, stage 5 | | [...] 10/2016 with severe pneumonia, severe ZEKE; needed FAST FOOD CREW MEMBER for ~5 weeks b efore renal function recovery mid 12/2016. He was admitted to [facility] for 3 nights in July [...] 19.5 (A) 05/27/2019 LABPROT 2,445.6 (A) 03/01/2019 [id number] 30 10/08/2018 Assessment: Mr. Andujar is a 78 y.o. male patient with stage IV CKD on a background of diabetes & hypert ension and recent hospitalization for C-diff and hehydration. The most likely pathology here is that of diabetic nephropathy +/- hypertensive nephrosclerosis/arteriolosclerosis. He was hospitalized in 10/2016 with severe pneumonia, severe ZEKE; needed FAST FOOD CREW MEMBER for ~5 weeks b efore renal function [...] Also: I see no need for acute FAST FOOD CREW MEMBER. I see no need to send him [...] 2019 | Office | | [address] [facility] | | | | Visit | | [address] [place], [place] | | | | | | [address] | | | | | | | | +--------+ + + + + documented as of this encounter Visit Diagnoses + + | Diagnosis | + + | CKD (chronic kidney disease) stage 5, GFR less than 15 ml/min ([facility]) - Primary Chronic | | [...]
--- OUTSIDE RECORDS SUMMARY | ~2020-08-16 | XMS | Encounter Summary ---
Demographics + + + | Address | [address] | | | [place] [address] | + + + | Home Phone [...] Providers + +------+ + | Care Press Washer Name | Role | Phone | [...] [address] | | | | | [place], [place] | [place] [address] | | | | | [address] | [phone] | | | | | [phone] | | | +--------+ + + + [...] [facility] [place] | | | | Visit | | [address] [facility] | | | | | | [address] | | | | | | | [...] pressures of 5-10mmHg. MEASUREMENTS | | | Special Education Assistant: MARLENA Authenticated by: VICTORIANO BIRMINGHAM MD Report [...] venous pressures of 5-10mmHg. | | MEASUREMENTS Special Education Assistant: BAIRONuthenticated by: VICTORIANO BIRMINGHAM MDReptigre | | [...] | |MEASUREMENTS | | | | | |Special Education Assistant: | |Authenticated by: VICTORIANO BIRMINGHAM MD | [...]
--- OUTSIDE RECORDS SUMMARY | ~2020-08-16 | XMS | Encounter Summary ---
Demographics + + + | Address | [address] | | | [place] [address] | + + + | Home Phone [...] Team Providers + +------+ + | Care Narrow Gauge Brakeman Name | Role | Phone | + +------+ + | Rahul Silva MD | PCP | | + +------+ + Encounter Details +--------+ + + + + | Date | Type | Department | Care Team | Description | +--------+ + + + + | 10/08/ | Orders Only | [facility] | Farrukh Acuna MD | | | 2018 | | NEPHROLOGY [place] | [address] [place] | | | | | [address] [place] | [address] [place], [place] | | | | | [address] [place], [place] | [address] | | | | | [address] | | | | | | [phone] | | | +--------+ + + + [...] | | | Visit | | [address] [place], [place] | | | | | | [address] | | | | | | | [...] | | | LAB | | | Ghanaian | | | | | + + [...]
--- OUTSIDE RECORDS SUMMARY | ~2020-08-16 | XMS | Encounter Summary ---
Demographics + + + | Address | [address] | | | [place] [address] | + + + | Home Phone [...] Providers + +------+ + | Care Client Finance Analyst Name | Role | Phone | [...] [address] | | | | | [place], [place] | [place], [place] | | | | | [address] | [address] | | | | | [phone] | [phone] | | | | | | | [...] | | | Visit | | [address] [place] | | | | | | [address] [...]
--- OUTSIDE RECORDS SUMMARY | ~2020-08-16 | XMS | Encounter Summary ---
Demographics + + + | Address | [address] | | | [place] [address] | + + + | Home Phone [...] Providers + +------+ + | Care Peanut Butter Maker Name | Role | Phone | + +------+ + | Rahul Silva MD | PCP | | + +------+ + Encounter Details +--------+ + + + + | Date | Type | Department | Care Team | Description | +--------+ + + + + | 09/18/ | Orders Only | [facility] | Conversion | | | 2018 | | NEPHROLOGY [place] | Transaction, | | | | | [address] | Provider Unknown | | | | | [address] [place] | | | | | | [address] | (Fax) | | | | | [phone] | | | +--------+ + + + [...] Visit | | [facility] | | | | | | [address] | | | | | | | [...]
--- OUTSIDE RECORDS SUMMARY | ~2020-08-16 | XMS | Encounter Summary ---
Demographics + + + | Address | [address] | | | [place] [address] | + + + | Home Phone [...] Team Providers + +------+ + | Care Bag Checker Name | Role | Phone | + +------+ + | Rahul Silva MD | PCP | | + +------+ + Encounter Details +--------+---------+ + + + | Date | Type | Department | Care Team | Description | +--------+---------+ + + + | 07/26/ | Office | [facility] | Farrukh Acuna MD | Stage 5 chronic | | 2019 | Visit | NEPHROLOGY [place] | [address] [place] | kidney disease not | | | | [address] | [address] [place], [place] | on chronic dialysis | | | | [address] | [address] | (HCC) (Primary Dx); | | | | [place], [place] | | Edema of lower | | | | [address] | | extremity; Tobacco | | | | [phone] | | dependence syndrome; | | | [...] Also: I see no need for acute STOCK BUYER. I see no need to send him [...] 05/31/19 1232 Encounter Date: 05/31/2019 Status: Signed Industrial Yard Brake Coupler: Farrukh Acuna MD (Physician) Patient Active Problem [...] 10/2016 with severe pneumonia, severe ZEKE; needed STOCK BUYER for ~5 weeks b efore renal function recovery mid 12/2016. He was admitted to [facility] for 3 nights in July [...] 19.5 (A) 05/27/2019 LABPROT 2,445.6 (A) 03/01/2019 [id number] 30 10/08/2018 Assessment: Mr. Andujar is a 78 y.o. male patient with stage IV CKD on a background of diabetes & hypert ension and recent hospitalization for C-diff and hehydration. The most likely pathology here is that of diabetic nephropathy +/- hypertensive nephrosclerosis/arteriolosclerosis. He was hospitalized in 10/2016 with severe pneumonia, severe ZEKE; needed STOCK BUYER for ~5 weeks b efore renal function [...] Also: I see no need for acute STOCK BUYER. I see no need to send him [...] | | | Visit | | [address] [place], [place] | | | | | | [address] | | | | | | | [...]
--- OUTSIDE RECORDS SUMMARY | ~2020-08-16 | XMS | Encounter Summary ---
Demographics + + + | Address | [address] | | | [place] [address] | + + + | Home Phone [...] [place] HINSON | | | | | [address] | | + + + + + Care Team Providers + +------+ + | Care Family Coach Name | Role | Phone | [...] Rd | | | | | | [place], [place] | | | | | | [address] | | | +--------+ + + + [...] as of this encounter Progress Notes Interface, Remedial Masseur In - 03/27/2007 3:12 AM PDT CLINIC [...] an abnormal AC-BE, he was referred to [facility] for colonoscopy. MEDICATIONS: 1. Vicodin. 2. Various [...] Dr. Valles who is his physician in [place], [place]. He has made me aware that [...] M.D. Fellow, Gastroenterology SHANEL/stephon cc: ARIA WATKINS [facility] [place] documented in this encounter Plan of Treatment Not on filedocumented as of this encounter Visit Diagnoses Not on filedocumented in this encounter"
--- OUTSIDE RECORDS SUMMARY | ~2020-08-16 | XMS | Encounter Summary ---
Demographics + + + | Address | [address] | | | [place] [address] | + + + | Home Phone [...] Team Providers + +------+ + | Care Double End Trimmer Name | Role | Phone | [...] Unknown | | | | | [address] [place], [place] | [phone] | | | | | [address] | (Fax) | | | | | [phone] | | | +--------+ + + + [...] [place] | | | | | | [address] | | | | | | | [...] | | | LAB | | | Zambian | | | | | + + [...]
--- OUTSIDE RECORDS SUMMARY | ~2020-08-16 | XMS | Encounter Summary ---
Demographics + + + | Address | [address] | | | [place] [address] | + + + | Home Phone [...] Team Providers + +------+ + | Care Atmospheric Chemist Name | Role | Phone | [...] + + | 10/06/ | Telephone | [facility] | Farrukh Acuna MD | Other | | 2019 | | NEPHROLOGY [place] | [address] [place] | | | | | [address] [place] | [address] [place], [place] | | | | | [address] [facility] [place] | [address] | | | | | [address] | | | | | | [phone] | | | +--------+ + + + [...] in a week.Electronically signed by Trinidad Simon Vacuum Cleaner Operator logan curtis 10/07/2019 10:17 AM PSTTelephone Encounter [...] take medication. Please call them back at [phone]. Detailed message may be left on phone: Yes Last OV: 10/04/19 Next OV: 12/06/19 If this is a symptom based call and you were unable to immediately transfer the call to [facility] staff, was caller made aware that if at any timeshefeels it is an emergency they shoul d call 911 or go to the nearest emergency room? N/A Is field placement director needed: no documented in this enc ounter [...] | | | Visit | | [address] [place], [place] | | | | | | [address] | | | | | | | | +--------+ + + + + documented as of this encounter Visit Diagnoses Not on filedocumented in this encounter"
--- OUTSIDE RECORDS SUMMARY | ~2020-08-16 | XMS | Encounter Summary ---
Demographics + + + | Address | [address] | | | [place] [address] | + + + | Home Phone [...] [place]HA HINSON | | | | | [address] | | + + + + + Care Team Providers + +------+ + | Care Manager Transition Name | Role | Phone | + [...] Vyas | | | | | | [facility], [address] [place] [address] | | | | | | [place], [place] | | | | | | [address] | | | | | | [phone] | | | +--------+ + + + [...] as of this encounter Discharge Summaries Interface, Storage Management Architect In - 12/22/2006 3:12 AM PST [place] [address] [place], [place] [address] [facility] MEDICAL SUMMARY OF HOSPITALIZATION Med Rec No.: [id number] Admission Date: 04/06/98 Name: Kavon Andujar Discharge Date: 04/08/98 STAFF PHYSICIAN: Galo Arora M.D. Credit Review Analyst, Division of Plastic & Reconstructive Surgery PRINCIPAL [...] M.D. Resident, Plastic Surgery Galo Arora M.D. Credit Review Analyst, Division of Plastic & Reconstructive Surgery QIANA/charo P cc: GRIFFIN ASHER MD [address] [place] [address] documented in this encounter Plan of Treatment Not on filedocumented as of this encounter Visit Diagnoses Not on filedocumented in this encounter"
--- OUTSIDE RECORDS SUMMARY | ~2020-08-16 | XMS | Encounter Summary ---
Demographics + + + | Address | [address] | | | [place] [address] | + + + | Home Phone [...] Providers + +------+ + | Care Site Identification Specialist Name | Role | Phone | [...] | | | [address] | [place] [address] | | | | | [place] [address] | | | | | | [phone] | | | +--------+ + + + [...] | | | Visit | | [address] [facility] | | | | | | [address] | | | | | | | [...]
--- OUTSIDE RECORDS SUMMARY | ~2020-08-16 | XMS | Encounter Summary ---
Demographics + + + | Address | [address] | | | [place] [address] | + + + | Home Phone [...] [place] HINSON | | | | | [address] | | + + + + + Care Team Providers + +------+ + | Care Glass Frame Fitter Name | Role | Phone | + [...] | | | | | | [facility], [address] | | | | | | [place], [place] | | | | | | [address] | | | | | | [phone] | | | +--------+ + + + [...] as of this encounter Progress Notes Interface, Nanotechnology Technician In - 12/25/2006 5:00 AM [facility] CLINIC DATE: 03/16/98 PLASTIC SURGERY CLINIC [...] in the near future. Galo Arora M.D. Debt And Budget Counselor, Division of Plastic & Reconstructive Surgery AYDEE/alfred documented in this encounter Plan of Treatment Not on filedocumented as of this encounter Visit Diagnoses Not on filedocumented in this encounter"
--- OUTSIDE RECORDS SUMMARY | ~2020-08-16 | XMS | Encounter Summary ---
Demographics + + + | Address | [address] | | | [place] [address] | + + + | Home Phone [...] Team Providers + +------+ + | Care Retreader Name | Role | Phone | + +------+ + | Rahul Silva MD | PCP | | + +------+ + Encounter Details +--------+ + + + + | Date | Type | Department | Care Team | Description | +--------+ + + + + | 05/22/ | Orders Only | [facility] | Farrukh Acuna MD | | | 2018 | | NEPHROLOGY [place] | [address] [place] | | | | | [address] [place] | [address] [place], [place] | | | | | [address] [place], [place] | [address] | | | | | [address] | | | | | | [phone] | | | +--------+ + + + [...] 2020 | Office | | [address] [facility] | | | | Visit | | 160 [place], [place] | | | | | | [address] | | | | | | | [...] | | | LAB | | | Niuean | | | | | + + [...]
--- OUTSIDE RECORDS SUMMARY | ~2020-08-16 | XMS | Encounter Summary ---
Demographics + + + | Address | [address] | | | [place] [address] | + + + | Home Phone [...] Providers + +------+ + | Care Senior Account Director Name | Role | Phone [...] + + | 12/02/ | Documentati | [facility] | Simon, | Results (11/29/19) | | 2020 | on | NEPHROLOGY [place] | Trinidad [facility] | | | | | [address] [place] | Print Line Operator | | | | | [address] [place], [place] | | | | | | [address] | | | | | | [phone] | | | +--------+ + + + [...] | | | Visit | | [address] [place], [place] | | | | | | [address] | | | | | | | [...]
--- OUTSIDE RECORDS SUMMARY | ~2020-08-16 | XMS | Encounter Summary ---
Demographics + + + | Address | [address] | | | [place] [address] | + + + | Home Phone [...] Providers + +------+ + | Care Information Security Associate Name | Role | Phone | [...] (OTHER) | | 2019 | Procedure | [facility] | [address] | | | | | OPER[address] RO[address] | [place], [place] | | | | | [address] | [address] | | | | | [place], [place] | [phone] | | | | | [address] | | | | | | [phone] | | | +--------+ + + + [...] [place] | | | | | | [address] | | | | | | | | +--------+ + + + + documented as of this encounter Visit Diagnoses Not on filedocumented in this encounter"
--- OUTSIDE RECORDS SUMMARY | ~2020-08-16 | XMS | Encounter Summary ---
Demographics + + + | Address | [address] | | | [place] [address] | + + + | Home Phone [...] Team Providers + +------+ + | Care Mail Forwarding System Markup Clerk Name | Role | Phone | + +------+ + | Mehrdad Bergmna PCP | | + +------+ + Reason [...] + + | 03/14/ | Refill | [facility] | Farrukh Acuna MD | Medication Refill | | 2019 | | NEPHROLOGY [place] | [address] [place] | | | | | [address] | [address] [place], [place] | | | | | [address] | [address] | | | | | [place], [place] | | | | | | [address] | | | | | | [phone] | | | +--------+--------+ + + + [...] | | | Visit | | [address] [place], [place] | | | | | | [address] | | | | | | | [...]
--- OUTSIDE RECORDS SUMMARY | ~2020-08-16 | XMS | Encounter Summary ---
Demographics + + + | Address | [address] | | | [place] [address] | + + + | Home Phone [...] [place] HINSON | | | | | [address] | | + + + + + Care Team Providers + +------+ + | Care Talent Associate Name | Role | Phone | [...] | | | | | | [address] | | | | | | [place], [place] | | | | | | [address] | | | | | | [phone] | | | +--------+ + + + [...] as of this encounter Progress Notes Interface, On Line Csr In - 12/28/2006 5:10 AM PST [facility] and [place] [address] [place], [place] [address] or January 31, 1998 GRIFFIN SMILEY MD [address] [place] [address] [place] [address] RE:PORFIRIO ZAVALA MR#:[id number] Smiley: As [...] our conversation that the [facility] does not cover Ultram in their formulary, [...] in the future. Sincerely, Nelson Melara M.D. Retail Advisor, Anesthesiology [facility] MANDY/geovanni documented in this encounter Plan of Treatment Not on filedocumented as of this encounter Visit Diagnoses Not on filedocumented in this encounter"
--- OUTSIDE RECORDS SUMMARY | ~2020-08-16 | XMS | Encounter Summary ---
Demographics + + + | Address | [address] | | | [place] [address] | + + + | Home Phone [...] [place] HIN[place] | | | | | [address] | | + + + + + Care Team Providers + +------+ + | Care Traffic Sign Erection Supervisor Name | Role | Phone | [...] Rd | | | | | | [place] | | | | | | [address] | | | +--------+ + + + [...] as of this encounter Discharge Summaries Interface, Garage Worker In - 04/01/2007 5:08 AM PDT [address] [address] [facility] MEDICAL SUMMARY OF HOSPITALIZATION Med Rec [...] RUBIA KNAPP MD [address] [facility] [address] documented in this encounter Plan of Treatment Not on filedocumented as of this encounter Visit Diagnoses Not on filedocumented in this encounter"
--- OUTSIDE RECORDS SUMMARY | ~2020-08-16 | XMS | Encounter Summary ---
Demographics + + + | Address | [address] | | | [place] [address] | + + + | Home Phone [...] Team Providers + +------+ + | Care Airborne Electronics Analyst Name | Role | Phone | + +------+ + | Rahul Silva MD | PCP | | + +------+ + Encounter Details +--------+ + + + + | Date | Type | Department | Care Team | Description | +--------+ + + + + | 12/06/ | Orders Only | [facility] | Farrukh Acuna MD | Essential | | 2020 | | NEPHROLOGY [place] | [address] [place] | hypertension | | | | [address] [place] | [address] [place], [place] | (Primary Dx); CKD | | | | [address] [place], [place] | [address] | (chronic kidney | | | | [address] | | disease) stage 5, | | | | [phone] | | GFR less than 15 | [...] [place] | | | | | | [address] | | | | | | | [...] | | | | ([facility]) Persistent | | | | | [...] | | | ml/min ([facility]) Anemia | | | | | | of chronic kidney | | | | | | failure, stage 5 | | | | | | ([facility]) Persistent | | | | | [...]
--- OUTSIDE RECORDS SUMMARY | ~2020-08-16 | XMS | Encounter Summary ---
Demographics + + + | Address | [address] | | | [place] [address] | + + + | Home Phone [...] Providers + +------+ + | Care Correctional Classification Counselor Name | Role | Phone | + +------+ + | Rahul Silva MD | PCP | | + +------+ + Encounter Details +--------+ + + + + | Date | Type | Department | Care Team | Description | +--------+ + + + + | 11/05/ | Orders Only | [facility] | Farrukh Acuna MD | Essential | | 2019 | | NEPHROLOGY [place] | [address] [place] | hypertension | | | | [address] | [address] [place], [place] | (Primary Dx); Iron | | | | [address] | [address] | deficiency; Anemia | | | | [place], [place] | | of chronic kidney | | | | [address] | | failure, stage 5 | | | | [phone] | | (HCC) | +--------+ + + [...] Miscellaneous Notes Addendum Note - Kanwal Sampson Devulcanizer Tender - 10/05/2019 6:24 PM PST Addended b [...] | | | Visit | | [address] [place], [place] | | | | | | [address] | | | | | | | [...]
--- OUTSIDE RECORDS SUMMARY | ~2020-08-16 | XMS | Encounter Summary ---
Demographics + + + | Address | [address] | | | [place] [address] | + + + | Home Phone [...] Providers + +------+ + | Care Rn Gastroenterology Name | Role | Phone | + +------+ + | Rahul Silva MD | PCP | | + +------+ + Encounter Details +--------+ + + + + | Date | Type | Department | Care Team | Description | +--------+ + + + + | 01/26/ | Orders Only | [facility] | Conversion | | | 2014 | | [place]AR[facility] | Transaction, | | | | | [address] | Provider Unknown | | | | | [address] [place], [place] | [phone] | | | | | [address] | | | | | | [phone] | | | +--------+ + + + [...] [place] | | | | | | [address] | | | | | | | [...] | | | LAB | | | Botswanan | | | | | + + [...]
--- OUTSIDE RECORDS SUMMARY | ~2020-08-16 | XMS | Encounter Summary ---
Demographics + + + | Address | [address] | | | [place] [address] | + + + | Home Phone [...] Providers + +------+ + | Care Manager Generation Name | Role | Phone | + [...] [address] | | | | | [place], [place] | [place], [place] | | | | | [address] | [address] | | | | | [phone] | [phone] | | | | | | | [...] | | | Visit | | [address] [place] | | | | | | [address] | | | | | | | [...]
--- OUTSIDE RECORDS SUMMARY | ~2020-08-16 | XMS | Encounter Summary ---
Demographics + + + | Address | [address] | | | [place] [address] | + + + | Home Phone [...] [place] | | | | | [address] | | + + + + + Care Team Providers + +------+ + | Care Rn Testing Name | Role | Phone | + +------+ + | Rahul Silva MD | PCP | | + +------+ + Encounter Details +--------+ + + + + | Date | Type | Department | Care Team | Description | +--------+ + + + + | 01/14/ | Office | UNKNOWN DEPARTMENT | Other, Faculty | Progress Note | | 2000 | Visit-Trans | [address] [facility] | [phone] | | | | [address] | [address] | | | | | | [place], [place] | | | | | | [address] | | | +--------+ + + + [...] recommend that he see one of our teaching specialists for further evaluation, and he did appear interested in doing that. 2. Referral to Dr. Willis in Orthopedics. Yuriy Huang M.D. face worker KYLEE / [id number] / [id number] / [id number] / [id number] C: 01/23/2001 nw documented in this encounter Plan of Treatment Not on filedocumented as of this encounter Visit Diagnoses Not on filedocumented in this encounter"
--- OUTSIDE RECORDS SUMMARY | ~2020-08-16 | XMS | Encounter Summary ---
Demographics + + + | Address | [address] | | | [place] [address] | + + + | Home Phone [...] Team Providers + +------+ + | Care Gin Operator Name | Role | Phone | [...] + + | 03/23/ | Documentati | [facility] | Simon, | Results (03/21/20) | | 2020 | on | NEPHROLOGY [place] | Trinidad [facility] | | | | | [address] | Electronics Processing Supervisor | | | | | [address] [facility] | | | | | | [place], [place] | | | | | | [address] | | | | | | [phone] | | | +--------+ + + + [...] | Visit | | [address] [facility] [place] | | | | | | [address] | | | | | | | [...]
--- OUTSIDE RECORDS SUMMARY | ~2020-08-16 | XMS | Encounter Summary ---
Demographics + + + | Address | [address] | | | [place] [address] | + + + | Home Phone [...] [place] | | | | | [address] | | + + + + + Care Team Providers + +------+ + | Care Sdv Pilot/Navigator/Dds Operator Name | Role | Phone | [...] Rd | | | | | | [place] | | | | | | [address] | | | +--------+ + + + [...] as of this encounter Discharge Summaries Interface, Assistant Case Manager In - 04/01/2007 5:08 AM PDT [address] [address] [facility] MEDICAL [...] NK:freddie A cc: RUBIA KNAPP MD [address] [facility] [address] documented in this encounter Plan of Treatment Not on filedocumented as of this encounter Visit Diagnoses Not on filedocumented in this encounter"
--- OUTSIDE RECORDS SUMMARY | ~2020-08-16 | XMS | Encounter Summary ---
Demographics + + + | Address | [address] | | | [place] [address] | + + + | Home Phone [...] Providers + +------+ + | Care Outside Solar Sales Consultant Name | Role | Phone | + +------+ + | Rahul Silva MD | PCP | | + +------+ + Encounter Details +--------+ + + + + | Date | Type | Department | Care Team | Description | +--------+ + + + + | 09/07/ | Preadmit | [facility] | Brian Orosco MD | | | 2019 | Visit | CENTER [facility] | [address] | | | | | CLINIC [address] | [place], [place] | | | | | [place], [place] | [address] | | | | | [address] | [phone] | | | | | [phone] | | | +--------+ + + + [...] 09/07/19 encounter (Preadmit Visit) with [facility] ROOM 4 Medication Sig Instructions acyclovir [...] JANYI TO THE SECOND FLOOR to CH JANAN IN FOR SURGERY. Once elevator door opens you step out to check-in desk and are in the [facility] waiting room. AttachmentsThe following attachments cannot be sent through Care Everywhere.Hemodialysis Ac cess, Creating a (Samoan)Dialysis, Arteriovenous (AV) Fistula for (Samoan)documented in th is encounter Plan of Treatment +--------+ + + + + | Date | Type | Specialty | Care Team | Description | +--------+ + + + + | 10/30/ | Virtual | Nephrology | Farrukh Acuna MD | | | 2019 | Office | | [address] [facility] [place] | | | | Visit | | [address] [place], [place] | | | | | | [address] [...] W | | | | | | [facility], | | | | | | [place] [address] | | | | + + + + + + + + | Specimen | + + | Blood | + + + + + + + | Performing | Address | City/State/Zipcode | Phone Number | | Organization | | | | + + + + + | [facility] | [address] | [place] [address] | [phone] | + + + + + CBC [...] | | | Absolute | performed at [facility], [address] | K/uL | LABORATORY | | | | [place], | | | | | | [place] [address] | | | | + + + + + + + + | Specimen | + + | Blood | + + + + + + + | Performing | Address | City/State/Zipcode | Phone Number | | Organization | | | | + + + + + | [facility] | [address] | [place] [address] | [phone] | + + + + + ECG [...]
--- OUTSIDE RECORDS SUMMARY | ~2020-08-16 | XMS | Encounter Summary ---
Demographics + + + | Address | [address] | | | [place] [address] | + + + | Home Phone [...] Team Providers + +------+ + | Care Time Clock Repairer Name | Role | Phone | [...] + + | 09/10/ | Anesthesia | [facility] | Venkata Carroll | | | 2019 | [facility] | [address] | | | | | OPERATING ROOM [address] | [address] | | | | | [address] | [place] [address] | | | | | [place], [place] | [phone] | | | | | [address] | | | | | | [phone] | | | +--------+ + + + + Anesthesia Record + + + + + | Procedure Name | Responsible | Anesthesia Start | Anesthesia Stop Time | | | Anesthesiologist | Time | | + + + + + | INSERTION AV FISTULA | Venkata Carroll, | 09/10/19 1307 | 09/10/19 1401 | | (Right BBF) (Right | HAT CUTTER | | | | Arm Upper) | [...] 09/10/19 1600 by | | amor | ifpt-xom-pjahdv catheter system; | Trinidad Ramírez | Leana [...] EVALUATION Kavon Andujar 79 y.o. male 1940 [id number] Procedure(s) INSERTION AV FISTULA (Right BBF) (Right [...] by Venkata Carroll CRNA 09/10/2019 14:[facility] Venk[facility] Carroll CRNA at 09/10 2:10 PM PDTAnesthesia Preprocedure Evaluation - Venkata Carroll CRNA - 09/10/2019 12:41 PM PDT ANESTHESIA PREANESTHESIA EVALUATION Kavon Andujar 79 y.o. male 1940 [id number] Procedure(s): INSERTION AV FISTULA (Right BBF) (Right [...] NOTE Kavon Andujar 79 y.o. male 1940 [id number] INSERTION AV FISTULA (Right BBF) (Right Arm [...] team. Venkata Carroll CRNA 09/10/2019 14:[address] [facility] Venkata Carroll CRNA at [...] | | | Visit | | [address] [place], [place] | | | | | | [address] [...]
--- OUTSIDE RECORDS SUMMARY | ~2020-08-16 | XMS | Encounter Summary ---
Demographics + + + | Address | [address] | | | [place] [address] | + + + | Home Phone [...] Team Providers + +------+ + | Care Biochemistry Specialist Name | Role | Phone | [...] (ear) | | | | [address] [facility] [address] | [address] [place] [place] | | | | | [place] | [address] | | | | | [address] | | | | | | [phone] | | | +--------+ + + + [...] Miscellaneous Notes Telephone Encounter - Sarah Manzanares, Healthcare Facility Administrator - 08/07/2016 3:14 PM PDTCalled a nd [...] dry elephone Breann jackson - Sarah Manzanares, Healthcare Facility Administrator - 08/07/2016 11:03 AM PDTPatient daughter calls [...] 2019 | Office | | [address] [facility] | | | | Visit | | [address] [place], [place] | | | | | | [address] | | | | | | | | +--------+ + + + + documented as of this encounter Visit Diagnoses Not on filedocumented in this encounter"
--- OUTSIDE RECORDS SUMMARY | ~2020-08-16 | XMS | Encounter Summary ---
Demographics + + + | Address | [address] | | | [place] [address] | + + + | Home Phone [...] +------+ + | Care Senior Oracle Database Administrator Name | Role | Phone | + +------+ + | Rahul Silva MD | PCP | | + +------+ + Encounter Details +--------+ + + + + | Date | Type | Department | Care Team | Description | +--------+ + + + + | 07/26/ | Orders Only | [facility] | Farrukh Acuna MD | Chronic kidney | | 2019 | | NEPRHOLOGY [place] | [address] | disease, stage IV | | | | [address] | [address] [place], [place] | (severe) (HCC); | | | | [address] [place], [place] | [address] | Persistent | | | | [address] | | proteinuria; | | | | [phone] | | Secondary | | | | [...] | | | Visit | | [address] [place], [place] | | | | | | [address] | | | | | | | [...]
--- OUTSIDE RECORDS SUMMARY | ~2020-08-16 | XMS | Encounter Summary ---
Demographics + + + | Address | [address] | | | [place] [address] | + + + | Home Phone [...] Providers + +------+ + | Care Mixer Operator Name | Role | Phone | + +------+ + | Rahul Silva MD | PCP | | + +------+ + Encounter Details +--------+ + + + + | Date | Type | Department | Care Team | Description | +--------+ + + + + | 11/10/ | Orders Only | [facility] | Farrukh Acuna MD | | | 2017 | | NEPHROLOGY [place] | [address] [place] | | | | | [address] [place] | [address] [place], [place] | | | | | [address] [place], [place] | [address] | | | | | [address] | | | | | | [phone] | | | +--------+ + + + [...] 2020 | Office | | [address] [facility] | | | | Visit | | [address] [place], [place] | | | | | | [address] | | | | | | | [...] | | | LAB | | | [place] | | | | | + + [...]
--- OUTSIDE RECORDS SUMMARY | ~2020-08-16 | XMS | Encounter Summary ---
Demographics + + + | Address | [address] | | | [place] [address] | + + + | Home Phone [...] Author | [facility] | | | [...] Team Providers + +------+ + | Care Agent Producer Name | Role | Phone | [...] [address] | | | | | [place], [place] | [place], [place] | | | | | [address] | [address] | | | | | [phone] | [phone] | | | | | | | [...] | | | Visit | | [address] [place] | | | | | | [address] | | | | | | | [...]
--- OUTSIDE RECORDS SUMMARY | ~2020-08-16 | XMS | Encounter Summary ---
Demographics + + + | Address | [address] | | | [place] [address] | + + + | Home Phone [...] Team Providers + +------+ + | Care Cellophaner Name | Role | Phone | + +------+ + PCP | Unavailable | + +------+ + Encounter Details +--------+ + + + + | Date | Type | Department | Care Team | Description | +--------+ + + + + | 07/18/ | [facility] | [facility] | Nelson Lutz MD | | | 2002 | Encounter | MED CTR GENERIC OP | [address] [place], [place] | | | | | CONV DEPT [address] | [address] | | | | | [place], | [address] | | | | | [place] [address] | | | | | | [phone] | | | +--------+ + + + [...] [place] | | | | | | [address] | | | | | | | | +--------+ + + + + documented as of this encounter Visit Diagnoses Not on filedocumented in this encounter"
--- OUTSIDE RECORDS SUMMARY | ~2020-08-16 | XMS | Encounter Summary ---
Demographics + + + | Address | [address] | | | [place] [address] | + + + | Home Phone [...] Providers + +------+ + | Care Dining Manager Name | Role | Phone | + +------+ + | Rahul Silva MD | PCP | | + +------+ + Encounter Details +--------+ + + + + | Date | Type | Department | Care Team | Description | +--------+ + + + + | 10/03/ | Orders Only | [facility] | Collin Mirza, | | | 2016 | | NEPHROLOGY [place] | SOFT SUGAR OPERATOR HEAD [address] | | | | | [address] [place] | [address] | | | | | [address] [place], [place] | [place] | | | | | [address] | [address] | | | | | [phone] | [phone] | | | | | | | [...] | | | Visit | | [address] [place] | | | | | | [address] | | | | | | | [...]
--- OUTSIDE RECORDS SUMMARY | ~2020-08-16 | XMS | Encounter Summary ---
Demographics + + + | Address | [address] | | | [place] [address] | + + + | Home Phone [...] Providers + +------+ + | Care Supervisor Tree Fruit And Nut Farming Name | Role | Phone | [...] [address] | | | | | | [place], [place] | | | | | | [address] | | | | | | [phone] | | | +--------+ + + + [...] as of this encounter Progress Notes Interface, Nuclear Medicine Technician In - 12/25/2006 5:00 AM [facility] [...] in the near future. Galo Arora M.D. Field Inspector, Division of Plastic & Reconstructive Surgery AYDEE/alfred documented in this encounter Plan of Treatment Not on filedocumented as of this encounter Visit Diagnoses Not on filedocumented in this encounter"
--- OUTSIDE RECORDS SUMMARY | ~2020-08-16 | XMS | Encounter Summary ---
Demographics + + + | Address | [address] | | | [place] [address] | + + + | Home Phone [...] Providers + +------+ + | Care Strip Cutting Machine Operator Name | Role | [...] [address] | | | | | [place], [place] | [place], [place] | | | | | [address] | [address] | | | | | [phone] | [phone] | | | | | | | [...] | | Visit | | [address] [place] | | | | | | [address] | | | | | | | [...]
--- OUTSIDE RECORDS SUMMARY | ~2020-08-16 | XMS | Encounter Summary ---
Demographics + + + | Address | [address] | | | [place] [address] | + + + | Home Phone [...] Team Providers + +------+ + | Care Exercise Science Instructor Name | Role | Phone [...] + + | 01/10/ | Documentati | [facility] | Simon, | Results (01/07/20) | | 2020 | on | NEPHROLOGY [place] | [facility] | | | | | [address] [place] | Maintenance Technician | | | | | [address] [place], [place] | | | | | | [address] | | | | | | [phone] | | | +--------+ + + + [...] | | | Visit | | [address] [place], [place] | | | | | | [address] | | | | | | | [...]
--- OUTSIDE RECORDS SUMMARY | ~2020-08-16 | XMS | Encounter Summary ---
Demographics + + + | Address | [address] | | | [place] [address] | + + + | Home Phone [...] Team Providers + +------+ + | Care Cnc Laser Operator Name | Role | Phone | [...] + + | 03/20/ | Telephone | [facility] | Sandy Capellan | Mary (Clarification | | 2020 | | NEPRHOLOGY [place] | BAN Valadez | on lab orders) | | | | [address] | | | | | | [address] [place] | | | | | | [address] | | | | | | [phone] | | | +--------+ + + + [...] stated understanding and they will go to [facility] tomorrow for non-fasting blood work. Re-faxed pre-appointment orders (RFP, PTH, ferrit in, iron/iron binding, mag, and CBC) to [facility] in [place] (F#[phone]). Fax confirm ation received. No further questions [...] | | | Visit | | [address] [place], [place] | | | | | | [address] | | | | | | | | +--------+ + + + + documented as of this encounter Visit Diagnoses Not on filedocumented in this encounter"
--- OUTSIDE RECORDS SUMMARY | ~2020-08-16 | XMS | Encounter Summary ---
Demographics + + + | Address | [address] | | | [place] [address] | + + + | Home Phone [...] Team Providers + +------+ + | Care Drapery Hand Name | Role | Phone | + +------+ + | Rahul Silva MD | PCP | | + +------+ + Encounter Details +--------+ + + + + | Date | Type | Department | Care Team | Description | +--------+ + + + + | 03/13/ | Orders Only | [facility] | Conversion | | | 2016 | | NEPHROLOGY [place] | Transaction, | | | | | [address] | Provider Unknown | | | | | [address] [place] | | | | | | [address] | (Fax) | | | | | [phone] | | | +--------+ + + + [...] 2019 | Office | | [address] [facility] | | | | Visit | | [address] [facility] | | | | | | [address] | | | | | | | [...] - 1.030 | EXTERNAL | | | [place], | | | LAB | | [...]
--- OUTSIDE RECORDS SUMMARY | ~2020-08-16 | XMS | Encounter Summary ---
Demographics + + + | Address | [address] | | | [place] [address] | + + + | Home Phone [...] Providers + +------+ + | Care Tax Economist Name | Role | Phone | + [...] | | | [address] [place] | [place] [address] | | | | | [place] [address] | | | | | | [phone] | | | +--------+ + + + [...] [place] | | | | | | [address] | | | | | | | [...]
--- OUTSIDE RECORDS SUMMARY | ~2020-08-16 | XMS | Encounter Summary ---
Demographics + + + | Address | [address] | | | [place] [address] | + + + | Home Phone [...] Team Providers + +------+ + | Care Sybase Developer Name | Role | Phone | [...] | | | stage 5, GFR | [address] | | | | | | less than | Phone: | | | | | | 15 ml/min | [phone] | | | | | | (HCC) | Fax: | | | | | | Procedures | [phone] | | | | | | VAS [...] | | | stage 5, GFR | [address] | | | | | | less than | Phone: | | | | | | 15 ml/min | [phone] | | | | | | ([facility]) | Fax: | | | | | | Procedures | [phone] | | | | | | VAS [...] + + | 10/20/ | Hospital | [facility] | Trisha Conner DNP | CKD (chronic kidney | | 2019 | Encounter | VASCULAR SURGERY | [address] | disease) stage 5, | | | | ULTRASOUND [address] | [place] | GFR less than 15 | | | | [address] | [address] | ml/min ([facility]) | | | | [place] | | | | | | [address] | | | | | | [phone] | | | +--------+ + + + [...] | | | | | ([facility]), Secondary | | | | [...] [place] | | | | | | [address] [...] | | | | | Signed by: dIris Wilson Shawn | | Sign Date/Time: 10/21/2019 [...]
--- OUTSIDE RECORDS SUMMARY | ~2020-08-16 | XMS | Encounter Summary ---
Demographics + + + | Address | [address] | | | [place] [address] | + + + | Home Phone [...] Team Providers + +------+ + | Care Maltster Name | Role | Phone | + +------+ + | Rahul Silva MD | PCP | | + +------+ + Encounter Details +--------+ + + + + | Date | Type | Department | Care Team | Description | +--------+ + + + + | 03/24/ | Orders Only | [facility] | Farrukh Acuna MD | | | 2017 | | NEPHROLOGY [place] | [address] [place] | | | | | [address] [place] | [address] [place], [place] | | | | | [address] [place], [place] | [address] | | | | | [address] | | | | | | [phone] | | | +--------+ + + + [...] 2020 | Office | | [address] [facility] | | | | Visit | | [address] [place], [place] | | | | | | [address] | | | | | | | [...]
--- OUTSIDE RECORDS SUMMARY | ~2020-08-16 | XMS | Encounter Summary ---
Demographics + + + | Address | [address] | | | [place] [address] | + + + | Home Phone [...] Team Providers + +------+ + | Care Resident Service Coordinator Name | Role | Phone [...] | | | [address] [place] | [place] [address] | | | | | [place] [address] | | | | | | [phone] | | | +--------+ + + + [...] Office | | [address] [facility] [place] | | | | Visit | | [address] [facility] | | | | | | [address] | | | | | | | [...]
--- OUTSIDE RECORDS SUMMARY | ~2020-08-16 | XMS | Encounter Summary ---
Demographics + + + | Address | [address] | | | [place] [address] | + + + | Home Phone [...] Providers + +------+ + | Care Energy Projects Lead Name | Role | Phone | [...] + + | 09/17/ | Documentati | [facility] | KevonOly sullivan | Labs Only ([facility] | | 2019 | on | NEPRHOLOGY [place] | V, Medical | 08/24/19) | | | | [address] | Senior Research Manager | | | | | [address] [place], [place] | | | | | | [address] | | | | | | [phone] | | | +--------+ + + + [...] [place] | | | | | | [address] | | | | | | | [...] | REFERENCE LAB | [address] [place] | [place] | [phone] | | [facility] | | [address] | | + + + + + | REFERENCE LAB | [address] [place] | [place] | [phone] | | [facility] | | [address] | | + + + + + documented in this encounter Visit Diagnoses Not on filedocumented in this encounter"
--- OUTSIDE RECORDS SUMMARY | ~2020-08-16 | XMS | Encounter Summary ---
Demographics + + + | Address | [address] | | | [place] [address] | + + + | Home Phone [...] Providers + +------+ + | Care Software Configuration Analyst Name | Role | Phone | [...] | | | [address] [place] | [place] [address] | | | | | [place] [address] | | | | | | [phone] | | | +--------+ + + + [...] | | [address] [facility] [place] | | | | Visit | | 160 [facility] | | | | | | [address] | | | | | | | [...]
--- OUTSIDE RECORDS SUMMARY | ~2020-08-16 | XMS | Encounter Summary ---
Demographics + + + | Address | [address] | | | [place] [address] | + + + | Home Phone [...] Team Providers + +------+ + | Care Folder Machine Adjuster Name | Role | Phone | + +------+ + | Rahul Silva MD | PCP | | + +------+ + Encounter Details +--------+ + + + + | Date | Type | Department | Care Team | Description | +--------+ + + + + | 03/13/ | Orders Only | [facility] | Conversion | | | 2016 | | NEPHROLOGY [place] | Transaction, | | | | | [address] | Provider Unknown | | | | | [address] [place] | | | | | | [address] | (Fax) | | | | | [phone] | | | +--------+ + + + [...] | | | Visit | | [address] [facility] | | | | | | [address] | | | | | | | [...] - 1.030 | EXTERNAL | | | [place], | | | LAB | | | [...]
--- OUTSIDE RECORDS SUMMARY | ~2020-08-16 | XMS | Encounter Summary ---
Demographics + + + | Address | [address] | | | [place] [address] | + + + | Home Phone [...] [place] | | | | | [address] | | + + + + + Care Team Providers + +------+ + | Care Truckload Checker Name | Role | Phone | [...] [place] | | | | | | [address] | | | | | | [place], [place] | | | | | | [address] | | | | | | [phone] | | | +--------+ + + + [...] of this encounter Progress Notes Interface, Hat Lining Paster In - 01/22/2007 3:04 AM PST [facility] and [address] [address] or June 07, 1997 Pravin VALLES MD [address] [place] [facility] [address] RE:Kavon Andujar MR#:[id number] Valles: I saw Kavon Andujar in the Neurology Clinic today and have enclosed a copy of my note. 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 He [...] over the telephone. Sincerely, Michelle Landon M.D. Cost Estimating Manager, Neurology JINNY/ C: 06/13/97 cc: Alina Moise M.D. Division of Neurosurgery [facility] Robert Carlson M.D. Division of Vascular Surgery [facility] documented in this encounter Plan of Treatment Not on filedocumented as of this encounter Visit Diagnoses Not on filedocumented in this encounter
--- OUTSIDE RECORDS SUMMARY | ~2020-08-16 | XMS | Encounter Summary ---
Demographics + + + | Address | [address] | | | [place] [address] | + + + | Home Phone [...] Providers + +------+ + | Care Marketing Admin Name | Role | Phone | + [...] | [address] | [address] [facility] [place] | | | | | [facility] [address] | [id number] | | | | | [place], [place] | | | | | | [address] | | | | | | [phone] | | | +--------+--------+ + + + [...] questions at this time. ddendum Note - Kanawl Sampson Medica l Cartographic Aide - 02/08/2020 5:22 PM PDT Addended by: [...] [place] | | | | | | [address] | | | | | | | | +--------+ + + + + documented as of this encounter Visit Diagnoses + + | Diagnosis | + + | Essential hypertension - Primary Unspecified essential hypertension | + + documented in this encounter"
--- OUTSIDE RECORDS SUMMARY | ~2020-08-16 | XMS | Encounter Summary ---
Demographics + + + | Address | [address] | | | [place] [address] | + + + | Home Phone [...] Team Providers + +------+ + | Care Operator Bearer Systems Name | Role | Phone | + +------+ + | Mehrdad Bergman | PCP | | + +------+ + Encounter Details +--------+ + + + + | Date | Type | Department | Care Team | Description | +--------+ + + + + | 03/28/ | Orders Only | [facility] | Farrukh Acuna MD | Essential | | 2020 | | NEPHROLOGY [place] | [address] [place] | hypertension | | | | [address] | [address] [place], [place] | (Primary Dx); Anemia | | | | [address] | [address] | of chronic kidney | | | | [place], [place] | | failure, stage 5 | | | | [address] | | (HCC); Persistent | | | | [phone] | | proteinuria; CKD | | | | | | (chronic kidney | | | | | | disease) stage 5, | | | | | | GFR less than 15 | | | | | | ml/min ([facility]) | +--------+ + [...] | [address] [facility] [place] | | | | Visit | | [address] [facility] [place] | | | | | | [address] | | | | | | | [...] | | | ([facility]) Persistent | | | | | | proteinuria CKD | | | | | | (chronic kidney | | | | | | disease) stage 5, | | | | | | GFR less than 15 | | | | | | ml/min ([facility]) | | + [...] | | | ([facility]) Persistent | | | | | | proteinuria CKD | | | | | | (chronic kidney | | | | | | disease) stage 5, | | | | | | GFR less than 15 | | | | | | ml/min ([facility]) | | + +------+--------+ + + | Renal Function Panel | Lab | Routin | Essential | Expected: | | | | e | hypertension Anemia | 05/28/2020, Expires: | | | | | of chronic kidney | 03/28/2021 | | | | | failure, stage 5 | | | | | | ([facility]) Persistent | | | | | | proteinuria CKD | | | | | | (chronic kidney | | | | | | disease) stage 5, | | | | | | GFR less than 15 | | | | | | ml/min ([facility]) | | + +------+--------+ + + | CBC with | Lab | Routin | Essential | Expected: | | Differential | | e | hypertension Anemia | 05/28/2020, Expires: | | | | | of chronic kidney | 03/28/2021 | | | | | failure, stage 5 | | | | | | ([facility]) Persistent | | | | [...] | | | ([facility]) Persistent | | | | [...] | | | ([facility]) Persistent | | | | | | proteinuria CKD | | | | | | (chronic kidney | | | | | | disease) stage 5, | | | | | | GFR less than 15 | | | | | | ml/min ([facility]) | | + +------+--------+ + + | Parathyroid Hormone, | Lab | Routin | Essential | Expected: | | Intact | | e | hypertension Anemia | 05/28/2020, Expires: | | | | | of chronic kidney | 03/28/2021 | | | | | failure, stage 5 | | | | | | ([facility]) Persistent | | | | [...] | | | ([facility]) Persistent | | | | [...]
--- OUTSIDE RECORDS SUMMARY | ~2020-08-16 | XMS | Encounter Summary ---
Demographics + + + | Address | [address] | | | [place] [address] | + + + | Home Phone [...] Team Providers + +------+ + | Care Hydrogen Cell Tender Name | Role | Phone | + +------+ + | Rahul Silva MD | PCP | | + +------+ + Encounter Details +--------+ + + + + | Date | Type | Department | Care Team | Description | +--------+ + + + + | 07/11/ | Orders Only | [facility] | Farrukh Acuna MD | | | 2013 | | NEPHROLOGY [place] | [address] [place] | | | | | [address] [place] | [address] [place], [place] | | | | | [address] [place], [place] | [address] | | | | | [address] | | | | | | [phone] | | | +--------+ + + + [...] | | | Visit | | [address] [facility] | | | | | | [address] | | | | | | | [...] | LAB | | | [place] | | | | | + + [...]
--- OUTSIDE RECORDS SUMMARY | ~2020-08-16 | XMS | Encounter Summary ---
Demographics + + + | Address | [address] | | | [place] [address] | + + + | Home Phone [...] Providers + +------+ + | Care Oil Tank Car Cleaner Name | Role | Phone | [...] + + | 11/12/ | Documentati | [facility] | Simon, | Results (11/10/19) | | 2019 | on | NEPHROLOGY [place] | [facility] | | | | | [address] [place] | Mica Paster | | | | | [address] [place], [place] | | | | | | [address] | | | | | | [phone] | | | +--------+ + + + [...] | | | Visit | | [address] [place], [place] | | | | | | [address] | | | | | | | [...]
--- OUTSIDE RECORDS SUMMARY | ~2020-08-16 | XMS | Encounter Summary ---
Demographics + + + | Address | [address] | | | [place] [address] | + + + | Home Phone [...] Organization | [facility] | | | and [place] | + [...] Team Providers + +------+ + | Care Elastic Attacher Coverstitch Name | Role | Phone | + +------+ + | Rahul Silva MD | PCP | | + +------+ + Encounter Details +--------+ + + + + | Date | Type | Department | Care Team | Description | +--------+ + + + + | 07/11/ | Orders Only | [facility] | Farrukh Acuna MD | | | 2013 | | NEPHROLOGY [place] | [address] [place] | | | | | [address] [place] | 160 [place], [place] | | | | | [address] [place], [place] | [address] | | | | | [address] | | | | | | [phone] | | | +--------+ + + + [...] [place] | | | | | | [address] | | | | | | | [...] | | | LAB | | | [place] | | | | | + + [...]
--- OUTSIDE RECORDS SUMMARY | ~2020-08-16 | XMS | Encounter Summary ---
Demographics + + + | Address | [address] | | | [place] [address] | + + + | Home Phone [...] Team Providers + +------+ + | Care Federal Law Clerk Name | Role | Phone [...] | | | | | | [address] [place] | | | | | | [address] | | | | | | [phone] | | | +--------+ + + + [...] banks, called explaining that they went to [facility] today but were unable to do labs becaus e they were missing the urine order. Explained that per last OV note, Dr Acuna only wanted b lood work and no urine testing was needed. She stated understanding and they will go to [facility] tomorrow for non-fasting blood work. Re-faxed pre-appointment orders (RFP, PTH, ferrit in, iron/iron binding, mag, and CBC) to [facility] in [place] (F#[phone]). Fax confirm ation received. No further questions [...] | | | Visit | | [address] [place], [place] | | | | | | [address] | | | | | | | | +--------+ + + + + documented as of this encounter Visit Diagnoses Not on filedocumented in this encounter"
--- OUTSIDE RECORDS SUMMARY | ~2020-08-16 | XMS | Encounter Summary ---
Demographics + + + | Address | [address] | | | [place] [address] | + + + | Home Phone [...] [place] | | | | | [address] | | + + + + + Care Team Providers + +------+ + | Care Braided Band Assembler Name | Role | Phone | [...] [place] | | | | | | [address] | | | | | | [place], [place] | | | | | | [address] | | | | | | [phone] | | | +--------+ + + + [...] as of this encounter Progress Notes Interface, Screwdown Operator In - 02/14/2007 3:12 AM PDT [facility] and [address] [address] or September 09, 1996 Nestor VALLES MD [address] [place] [address] RE: PORFIRIO ZAVALA MR#: [id number] Valles: Your patient, Porfirio Zavala, was seen for follow up today in the Neurosurgery Clinic at [facility]. 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 Following our initial evaluation, we recommended [...] Fellow, Neurosurgery Alina Moise M.D. Professor and Taxicab Driver, Division of Neurosurgery [place] documented in this encounter Plan of Treatment Not on filedocumented as of this encounter Visit Diagnoses Not on filedocumented in this encounter"
--- OUTSIDE RECORDS SUMMARY | ~2020-08-16 | XMS | Encounter Summary ---
Demographics + + + | Address | [address] | | | [place] [address] | + + + | Home Phone [...] Team Providers + +------+ + | Care Gunner'S Mate G Name | Role | Phone | + [...] + + | 09/17/ | Documentati | [facility] | KevonOly sullivan | Labs Only ([facility] | | 2019 | on | NEPRHOLOGY [place] | V, Medical | 08/24/19) | | | | [address] | Coil Shaper | | | | | [address] [place], [place] | | | | | | [address] | | | | | | [phone] | | | +--------+ + + + [...] | [address] [facility] | | | | | | [address] | | | | | | | [...] | REFERENCE LAB | [address] [place] | [place] | [phone] | | [facility] | | [address] | | + + + + + | REFERENCE LAB | [address] [place] | [place] | [phone] | | [facility] | | [address] | | + + + + + documented in this encounter Visit Diagnoses Not on filedocumented in this encounter"
--- OUTSIDE RECORDS SUMMARY | ~2020-08-16 | XMS | Encounter Summary ---
Demographics + + + | Address | [address] | | | [place] [address] | + + + | Home Phone [...] Providers + +------+ + | Care Floor Service Worker [place] Name | Role | Phone | + +------+ + | Rahul Silva MD | PCP | | + +------+ + Encounter Details +--------+ + + + + | Date | Type | Department | Care Team | Description | +--------+ + + + + | 11/10/ | Orders Only | [facility] | Conversion | | | 2016 | | NEPHROLOGY [place] | Transaction, | | | | | [address] | Provider Unknown | | | | | [address] [place] | | | | | | [address] | (Fax) | | | | | [phone] | | | +--------+ + + + [...] | Visit | | [facility] | | | | | | [address] | | | | | | | [...]
--- OUTSIDE RECORDS SUMMARY | ~2020-08-16 | XMS | Encounter Summary ---
Demographics + + + | Address | [address] | | | [place] [address] | + + + | Home Phone [...] [place] | | | | | [address] | | + + + + + Care Team Providers + +------+ + | Care Technical Maintenance Technician Name | Role | Phone [...] Note | | 2000 | Visit-Trans | [address] [facility] | [phone] | | | | [address] | [address] | | | | | | [place], [place] | | | | | | [address] | | | +--------+ + + + [...] recommend that he see one of our sales and training specialist for further evaluation, and he did appear interested in doing that. 2. Referral to Dr. Willis in Orthopedics. Yuriy Huang M.D. lab technologist KYLEE / [id number] / [id number] / [id number] / [id number] C: 01/23/2001 nw documented in this encounter Plan of Treatment Not on filedocumented as of this encounter Visit Diagnoses Not on filedocumented in this encounter"
--- OUTSIDE RECORDS SUMMARY | ~2020-08-16 | XMS | Encounter Summary ---
Demographics + + + | Address | [address] | | | [place] [address] | + + + | Home Phone [...] Team Providers + +------+ + | Care Clerk Travel Reservations Name | Role | Phone | + [...] | Transaction, | | | | | [place], [place] | Provider Unknown | | | | | [address] | [phone] | | | | | [phone] | | | +--------+ + + + [...] | | | Visit | | [address] | | | | | | [address] | | | | | | | [...]
--- OUTSIDE RECORDS SUMMARY | ~2020-08-16 | XMS | Encounter Summary ---
Demographics + + + | Address | [address] | | | [place] [address] | + + + | Home Phone [...] Team Providers + +------+ + | Care Neurourologist Name | Role | Phone | + [...] + + | 12/07/ | Telephone | [facility] | Farrukh Acuna MD | Other (Blood | | 2020 | | NEPHROLOGY [place] | [address] [place] | pressure concern. ) | | | | [address] [place] | [facility] [place] | | | | | [address] [place], [place] | [id number] | | | | | [address] | | | | | | [phone] | | | +--------+ + + + [...] Miscellaneous Notes Telephone Encounter - Trinidad Simon Fund Raiser - 12/07/2019 5:29 PM PSTPatie nts daughter [...] Office | | [address] [facility] | | | | Visit | | [address] [place], [place] | | | | | | [address] | | | | | | | | +--------+ + + + + documented as of this encounter Visit Diagnoses Not on filedocumented in this encounter"
--- OUTSIDE RECORDS SUMMARY | ~2020-08-16 | XMS | Encounter Summary ---
Demographics + + + | Address | [address] | | | [place] [address] | + + + | Home Phone [...] [place] | | | | | [address] | | + + + + + Care Team Providers + +------+ + | Care Cash Application Clerk Name | Role | Phone | [...] 310 | | | | | | [place], [place] | | | | | | [address] | | | | | | [phone] | | | +--------+ + + + [...] as of this encounter Progress Notes Interface, Photographic Equipment Technician In - 01/03/2007 5:08 AM PST CLINIC DATE: 12/22/97 Mr. Andujar is referred by Dr. Jerry Smiley in the [place] area. He is currently followed by the Anesthesia Pain Service at [facility], and also recently has [...] under Dr. Robert Carlson's supervision here at [facility]. His pain continued, exacerbated [...] procedure at this time. Eric Mcclure M.D. B Operator, Department of Orthopaedics and Rehabilitation AY/sara A cc: Jerry Smiley M.D. (with letter) [address] [facility] [address] [place] [address] Robert Carlson M.D. FAX: [phone] Alina Moise M.D. FAX: [phone] Anesthesia Pain ClinicFAX: [phone] documented in this encounter Plan of Treatment Not on filedocumented as of this encounter Visit Diagnoses Not on filedocumented in this encounter
--- OUTSIDE RECORDS SUMMARY | ~2020-08-16 | XMS | Encounter Summary ---
Demographics + + + | Address | [address] | | | [place] [address] | + + + | Home Phone [...] Team Providers + +------+ + | Care Programming Equipment Operator Name | Role | Phone [...] | | | [address] | [place] [address] | | | | | [place] [address] | | | | | | [phone] | | | +--------+ + + + [...] [place] | | | | | | [address] | | | | | | | [...]
--- OUTSIDE RECORDS SUMMARY | ~2020-08-16 | XMS | Encounter Summary ---
Demographics + + + | Address | [address] | | | [place] [address] | + + + | Home Phone [...] Providers + +------+ + | Care Baby Sitter Name | Role | Phone | + [...] [address] | | | | | [place], [place] | [place], [place] | | | | | [address] | [address] | | | | | [phone] | [phone] | | | | | | | [...] | | | Visit | | [address] [place] | | | | | | [address] | | | | | | | [...]
--- OUTSIDE RECORDS SUMMARY | ~2020-08-16 | XMS | Encounter Summary ---
Demographics + + + | Address | [address] | | | [place] [address] | + + + | Home Phone [...] Providers + +------+ + | Care Engraver Hand Hard Metals Name | Role | Phone | + [...] [address] | | | | | [place], [place] | [place], [place] | | | | | [address] | [address] | | | | | [phone] | | | | | | | [...] | | Visit | | [address] [place] | | | | | | [address] | | | | | | | [...]
--- OUTSIDE RECORDS SUMMARY | ~2020-08-16 | XMS | Encounter Summary ---
Demographics + + + | Address | [address] | | | [place] [address] | + + + | Home Phone [...] Team Providers + +------+ + | Care Weigher Alloy Name | Role | Phone | + +------+ + | Rahul Silva MD | PCP | | + +------+ + Encounter Details +--------+ + + + + | Date | Type | Department | Care Team | Description | +--------+ + + + + | 05/27/ | Orders Only | [facility] | Farrukh Acuna MD | | | 2019 | | NEPHROLOGY [place] | [address] [place] | | | | | [address] [place] | [address] [place], [place] | | | | | 160 [place], [place] | [address] | | | | | [address] | | | | | | [phone] | | | +--------+ + + + [...] 2020 | Office | | [address] [facility] | | | | Visit | | 160 [place], [place] | | | | | | [address] | | | | | | | [...] | | | LAB | | | [place] | | | | | + + [...]
--- OUTSIDE RECORDS SUMMARY | ~2020-08-16 | XMS | Encounter Summary ---
Demographics + + + | Address | [address] | | | [place] [address] | + + + | Home Phone [...] [place] | | | | | [address] | | + + + + + Care Team Providers + +------+ + | Care Cloud Administrator Name | Role | Phone | [...] Clinic | | | | | | [facility], [address] | | | | | | [place], [place] | | | | | | [address] | | | | | | [phone] | | | +--------+ + + + [...] of this encounter Progress Notes Interface, Psychiatric Rn In - 01/22/2007 3:04 AM PST CLINIC DATE: 06/07/97 NEUROLOGY CLINIC HISTORY OF PRESENT ILLNESS: Mr. Andujar is a 56 year-old male who is being evaluated in the Clinic for problems with balance and tremulousness of both upper extremities. He has been referred to this Clinic by Dr. Valles from [place], [place], and has also previously undergone extensive evaluations in the Neurosurgical Clinic and at Vascular Surgery at [facility]. His most recent hospitalization to [facility] was December 28, 1996, when he underwent [...] evaluation in the Pain Management Clinic at [facility] and previous trials of Neurontin and mexiletine hydrochloride apparently appears to have been unsuccessful. Shortly following his December hospitalization at [facility], Mr. Andujar apparently became comatose in January from an accidental overdose of Darvon for which he was admitted to [facility] in [place], [place]. The details pertaining to this hospitalization are currently not available but as per Mr. Andujar, he was in a coma for a six day period and upon recovery noted tremulousness of both upper extremities, worse on his left than on his right. Prior to his hospitalization at [facility] and following his discharge from [facility], he apparently was ambulating with crutches since the stump pain precluded the use of his left lower extremity prosthesis. Since his discharge from [facility], however, he has been experiencing increasing problems with balance and apparently has fallen on several occasions. The head CT-scan that was done at [facility], dated February 07, 1997, reveals a low attenuation area in the left anterior basal ganglia felt to represent a small lacunar infarct, with no other significant abnormality. Mr. Andujar states that during the course of his hospitalization at [facility] he apparently fell on three occasions sustaining occipital head trauma but did not undergo subsequent brain imaging studies. His stay at [facility] lasted two weeks. By his report, [...] Mr. Andujar specifically denies impairment of hand acid recovery operator, impaired strength in either upper extremity [...] currently lives in a Foster Home in [place], [place]. 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 He currently smokes one-half [id number] since age 23. Denies current alcohol use [...] in turn led to his hospitalization at [facility] in January 1997 for coma at [...] procedures for pain relief. Michelle Landon M.D. Radio Rigger, Neurology GN:fermin C: 06/28/97 cc: RUBIA VALLES MD [address] [facility] [address] Alina Moise M.D. Professor and School Treasurer, Division of Neurosurgery Robert Carlson M.D. Professor, Vascular Surgery documented in this encounter Plan of Treatment Not on filedocumented as of this encounter Visit Diagnoses Not on filedocumented in this encounter"
--- OUTSIDE RECORDS SUMMARY | ~2020-08-16 | XMS | Encounter Summary ---
Demographics + + + | Address | [address] | | | [place] [address] | + + + | Home Phone [...] Providers + +------+ + | Care Motorcycle Designer Name | Role | Phone | [...] + + | 09/24/ | Telephone | [facility] | Farrukh Acuna MD | Lab Results | | 2019 | | NEPHROLOGY [place] | [address] [place] | | | | | [address] [place] | [address] [facility] [place] | | | | | 160 [place], [place] | [address] | | | | | [address] | | | | | | [phone] | | | +--------+ + + + [...] Miscellaneous Notes Telephone Encounter - Trinidad Simon Monitoring Manager - 09/24/2019 2:49 PM PDTDrLedy bloom reviewed labs and stated that the patient labs show that he is stable. Called Charlotte and informed her of this. She verbalized understanding and had no further que stions at this time.Electronically signed by Trinidad Simon, Monitoring Manager at 2018 3:22 PM PDTTelephone Encounter - Trinidad Simon, Monitoring Manager - 09/24/2019 2:46 PM PDTPatients daughter called [...] 2019 | Office | | [address] [facility] | | | | Visit | | [address] [place] | | | | | | [address] | | | | | | | | +--------+ + + + + documented as of this encounter Visit Diagnoses Not on filedocumented in this encounter"
--- OUTSIDE RECORDS SUMMARY | ~2020-08-16 | XMS | Encounter Summary ---
Demographics + + + | Address | [address] | | | [place] [address] | + + + | Home Phone [...] Team Providers + +------+ + | Care Lubrication Technician Name | Role | Phone | [...] [address] | | | | | [place], [place] | [place], [place] | | | | | [address] | [address] | | | | | [phone] | | | | | | | [...] | | Visit | | [address] [place] | | | | | | [address] | | | | | | | [...]
--- OUTSIDE RECORDS SUMMARY | ~2020-08-16 | XMS | Encounter Summary ---
Demographics + + + | Address | [address] | | | [place] [address] | + + + | Home Phone [...] Team Providers + +------+ + | Care Malted Milk Supervisor Name | Role | Phone | [...] | [address] [place] | [place] [id number] | | | | | [place] [address] | | | | | | [phone] | | | +--------+ + + + [...] [place] | | | | | | [address] | | | | | | | [...]
--- OUTSIDE RECORDS SUMMARY | ~2020-08-16 | XMS | Encounter Summary ---
Demographics + + + | Address | [address] | | | [place] [address] | + + + | Home Phone [...] Team Providers + +------+ + | Care Reliability Engineer Name | Role | Phone | + +------+ + | Rahul Silva MD | PCP | | + +------+ + Encounter Details +--------+ + + + + | Date | Type | Department | Care Team | Description | +--------+ + + + + | 11/27/ | Orders Only | [facility] | Conversion | | | 2017 | | NEPHROLOGY [place] | Transaction, | | | | | [address] | Provider Unknown | | | | | [address] [place] | | | | | | [address] | (Fax) | | | | | [phone] | | | +--------+ + + + [...] [place] | | | | | | [address] | | | | | | | [...]
--- OUTSIDE RECORDS SUMMARY | ~2020-08-16 | XMS | Encounter Summary ---
Demographics + + + | Address | [address] | | | [place] [address] | + + + | Home Phone [...] Providers + +------+ + | Care Title Curator Name | Role | Phone | + +------+ + | Mehrdad Bergman | PCP | | + +------+ + Encounter Details +--------+ + + + + | Date | Type | Department | Care Team | Description | +--------+ + + + + | 06/05/ | Virtual | [facility] | Farrukh Acuna MD | CKD (chronic kidney | | 2019 | Office | NEPHROLOGY [place] | [address] [place] | disease) stage 5, | | | Visit | [address] | [address] [place], [place] | GFR less than 15 | | | | [address] | [address] | ml/min (HCC) | | | | [place], [place] | | (Primary Dx); Anemia | | | | [address] | | of chronic kidney | | | | [phone] | | failure, stage 5 | | | | | | ([facility]); Persistent | | | | | | proteinuria; | | | | | | Essential | | | | | | hypertension; Iron | | | | | | deficiency; | | | | | | Secondary | | | | | | hyperparathyroidism | | | | | | ([facility]); 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 I see no need to send him [...] 03/01/19. He was in the ED at [facility] in late 05/2020 with CP & [...] 10/2016 with severe pneumonia, severe ZEKE; needed YACHT CAPTAIN for ~5 weeks b efore renal function recovery mid 12/2016. He was admitted to [facility] for 3 nights in July [...] 10/2016 with severe pneumonia, severe ZEKE; needed YACHT CAPTAIN for ~5 weeks b efore renal function [...] Also: I see no need for acute YACHT CAPTAIN. I see no need to send him [...] or concerns. Truly yours, Farrukh Acuna MD [facility] This exam was initially conducted via a secure 256-bit AES encrypted bidirectional video se ssion. You have chosen to receive care through the use of telemedicine. Telemedicine enables [facility] care providers at different locations to [...] | | | Visit | | [address] [place], [place] | | | | | | [address] | | | | | | | [...]
--- OUTSIDE RECORDS SUMMARY | ~2020-08-16 | XMS | Encounter Summary ---
Demographics + + + | Address | [address] | | | [place] [address] | + + + | Home Phone [...] Providers + +------+ + | Care Athletic Coach Name | Role | Phone | [...] [address] | | | | | [place], [place] | [place], [place] | | | | | [address] | [address] | | | | | [phone] | [phone] | | | | | | | [...] | | Visit | | [address] [place] | | | | | | [address] | | | | | | | [...]
--- OUTSIDE RECORDS SUMMARY | ~2020-08-16 | XMS | Encounter Summary ---
Demographics + + + | Address | [address] | | | [place] [address] | + + + | Home Phone [...] Providers + +------+ + | Care Museum Exhibit Technician Name | Role | Phone | [...] [address] | | | | | [place], [place] | [place], [place] | | | | | [address] | [address] | | | | | [phone] | | | | | | | [...] | | | Visit | | [address] [place] | | | | | | [address] [...]
--- OUTSIDE RECORDS SUMMARY | ~2020-08-16 | XMS | Encounter Summary ---
Demographics + + + | Address | [address] | | | [place] [address] | + + + | Home Phone [...] Team Providers + +------+ + | Care Poolroom/Poolhall Manager Name | Role | Phone | [...] | [address] [place] | [place] [address] | | | | | [place] [address] | | | | | | [phone] | | | +--------+ + + + [...] | | | Visit | | [address] [place] | | | | | | [address] | | | | | | | [...]
--- OUTSIDE RECORDS SUMMARY | ~2020-08-16 | XMS | Encounter Summary ---
Demographics + + + | Address | [address] | | | [place] [address] | + + + | Home Phone [...] Providers + +------+ + | Care Learning Operations Specialist Name | Role | Phone [...] + + | 08/01/ | Documentati | [facility] | Alfred, | Other (IV fersonyaeme | | 2020 | on | NEPHROLOGY [place] | [facility]idad [facility] | order and new | | | | [address] [place] | V Groove Cutter | procrit order sent | | | | [address] [place], [place] | | to [facility] Shannan IVT | | | | [address] | | confirmation | | | | [phone] | | received 07/28) | +--------+ + [...] [place] | | | | | | [address] | | | | | | | | +--------+ + + + + documented as of this encounter Visit Diagnoses Not on filedocumented in this encounter"
--- OUTSIDE RECORDS SUMMARY | ~2020-08-16 | XMS | Encounter Summary ---
Demographics + + + | Address | [address] | | | [place] [address] | + + + | Home Phone [...] [place] | | | | | [address] | | + + + + + Care Team Providers + +------+ + | Care Project Hire Name | Role | Phone | + [...] | | | amputation | [place], | [place], [place] | | | | | stump, | [place] [address] | [address] | | | | | unspecified | Phone: | Phone: | | | | | | [phone] | [phone] | | | | | | Fax: | Fax: | | | | | | [phone] | [phone] | +--------+--------+ + + + + Encounter Details +--------+---------+ + + + | Date | Type | Department | Care Team | Description | +--------+---------+ + + + | 04/10/ | Office | [facility] | Seven Reilly MD | Low back pain; | | 2009 | Visit | Pain Center at | [address] | Herniated lumbar | | | | [facility] | [place], [place] | intervertebral disc; | | | | [address] | [address] | Stump pain (HCC) | | | | [facility] | [phone] | | | | | and Healing, | | | | | | Building | | | | | | Floor [place], [place] | | | | | | [address] | | | | | | [phone] | | | +--------+---------+ + + + [...] the trainee's note. Seven Reilly MD, [facility], [facility], Mariano Rubio MD - 04/10/2010 12:30 PM PDT [facility] Office Visit 04/10/2010 Kavon Andujar; ; : 1940 Mr. Andujar was referred for pain management consultation by HARDIK COYNE MD [address] [place] [address] Reason for visit: Chief Complaint Patient presents [...] pain. He has been referred to the [facility] for consultation regarding this [...] that the most effective treatments include: medications. ACCESS SPECIALIST Brief Pain Inventory: (ten= worst possible pain [...] and summary of old medical records (source: [employer]), as summarized in the body of the [...] generic medication. Follow up: none scheduled at [facility]. Mariano Martinez MD Pain Fellow [facility] documented in this encounter [...]
--- OUTSIDE RECORDS SUMMARY | ~2020-08-16 | XMS | Encounter Summary ---
Demographics + + + | Address | [address] | | | [place] [address] | + + + | Home Phone [...] [place] | | | | | [address] | | + + + + + Care Team Providers + +------+ + | Care Web Site Developer Name | Role | Phone | [...] [place] | | | | | | [address] | | | | | | [place], [place] | | | | | | [address] | | | | | | [phone] | | | +--------+ + + + [...] as of this encounter Progress Notes Interface, Emt In - 01/03/2007 5:08 AM PST [facility] and [address] [address] Department of Orthopaedics, School [employer] OP19 December 21, 1997 Jerry Smiley M.D. [address] [place] [address] [address] [place] [address] RE:Kavon Andujar MR#:[id number] Smiley: Thank [...] Carlson might like. Sincerely, Eric Mcclure M.D. Environmental Field Office Manager, Department of Orthopaedics and Rehabilitation ERICK/sara A documented in this encounter Plan of Treatment Not on filedocumented as of this encounter Visit Diagnoses Not on filedocumented in this encounter"
--- OUTSIDE RECORDS SUMMARY | ~2020-08-16 | XMS | Encounter Summary ---
Demographics + + + | Address | [address] | | | [place] [address] | + + + | Home Phone [...] Author | [facility] | | | and [...] Team Providers + +------+ + | Care Still Runner Name | Role | Phone | [...] [address] | | | | | [place], [place] | [place], [place] | | | | | [address] | [address] | | | | | [phone] | [phone] | | | | | | | [...] 2020 | Office | | [address] [facility] | | | | Visit | | [address] [place] | | | | | | [address] | | | | | | | [...]
--- OUTSIDE RECORDS SUMMARY | ~2020-08-16 | XMS | Encounter Summary ---
Demographics + + + | Address | [address] | | | [place] [address] | + + + | Home Phone [...] Team Providers + +------+ + | Care Gang Worker Name | Role | Phone | [...] + + | 09/01/ | Telephone | [facility] | Farrukh Acuna MD | Other | | 2019 | | NEPRHOLOGY [place] | [address] | | | | | [address] | 160 [place], [place] | | | | | [address] [place], [place] | [address] | | | | | [address] | | | | | | [phone] | | | +--------+ + + + [...] Miscellaneous Notes Telephone Encounter - Trinidad Simon Gas Distribution Supervisor - 09/02/2019 9:46 AM Henrry Acuna if the patients provider would like to discuss lab results they can call his cell rolf owen at any time. Called to relay message to krys but was unable to reach her I left thomas jennings with information and clinic name and number for her to call back with any questions.Elect ronically signed by Trinidad Simon, Gas Distribution Supervisor at 09/02/2019 9:48 AM Chandrika e Linda - Laureen Gill V - 09/01/2019 1:22 PM PDTProvider: [place]/Surgery Concerns patient and daughter called wanting to ask Armand if he can call him to discuss lab result a nd also concerns of the surgery due to his 2 blood clots on his arms. Surgery is on 09/10/19 . Please call them back at [phone]. Detailed message may be left on phone: Yes Last OV: 07/26/19 Next OV: 10/04/19 If this is a symptom based call and you were unable to immediately transfer the call to [facility] staff, was caller made aware that if at any timeshefeels it is an emergency they shoul d call 911 or go to the nearest emergency room? No Is precision devices inspector/tester needed: no documented in this enc ounter Plan of Treatment +--------+ + + + + | Date | Type | Specialty | Care Team | Description | +--------+ + + + + | 10/30/ | Virtual | Nephrology | Farrukh Acuna MD | | | 2019 | Office | | [address] [facility] | | | | Visit | | [address] [place], [place] | | | | | | [id number] | | | | | | | | +--------+ + + + + documented as of this encounter Visit Diagnoses Not on filedocumented in this encounter"
--- OUTSIDE RECORDS SUMMARY | ~2020-08-16 | XMS | Encounter Summary ---
Demographics + + + | Address | [address] | | | [place] [address] | + + + | Home Phone [...] Providers + +------+ + | Care Metal Milling Machine Operator Name | Role | [...] [id number] | | | | | | [place], [place] | | | | | | [address] | | | | | | [phone] | | | +--------+ + + + [...] + | [facility] DEPARTMENT | [address] | [place] [address] | | | PATHOLOGY | [address] | | | + + + + + SURGICAL PATHOLOGY (12/28/1996) + + + + + + | Component | Value | Ref Range | Performed | Pathologist | | | | | At | Signature | + + + + + + | SURGICAL | SOURCE OF SPECIMEN: SEE | | [facility] | | | PATHOLOGY | [...] | + + + + + | [facility] | [address] | [place] [address] | | | PATHOLOGY | [address] | | | + + + + + documented in this encounter Visit Diagnoses Not on filedocumented in this encounter"
--- OUTSIDE RECORDS SUMMARY | ~2020-08-16 | XMS | Encounter Summary ---
Demographics + + + | Address | [address] | | | [place] [address] | + + + | Home Phone [...] Team Providers + +------+ + | Care Firmware Engineer Name | Role | Phone [...] | | | [address] | [place] [address] | | | | | [place] [address] | | | | | | [phone] | | | +--------+ + + + [...] [facility]OS[facility] | | | | | | [address] | | | | | | | [...]
--- OUTSIDE RECORDS SUMMARY | ~2020-08-16 | XMS | Encounter Summary ---
Demographics + + + | Address | [address] | | | [place] [address] | + + + | Home Phone [...] Team Providers + +------+ + | Care Vice President Lending Name | Role | Phone | + [...] + + | 09/10/ | Surgery | [facility] | Brian Orosco MD | INSERTION AV FISTULA | | 2019 | [facility] | [address] | (Right BBF) | | | | OPERATING ROOM [address] | [place], [place] | | | | | [place] | [address] | | | | | [place], [place] | [phone] | | | | | [address] | | | | | | [phone] | | | +--------+---------+ + + + [...] shunt, please contact your ph ysician at [phone]. Discharge instructions for Diagnostic Imaging sedation patients [...] . For any severe symptoms, please call 173 or report to your nearest Emergency Department. Acetaminophen; Hydrocodone tablets or capsules Brand Names: Anexsia, Lorcet, Lorcet HD, Lorcet Plus, Lortab, Touchet, Verdrocet, Vicodin, Vi codin ES, Vicodin HP, [...] information carefully each time. Talk to your test deck supervisor regarding the use of this medicine in children. Special care may be needed. What side effects may I notice from receiving this medicine? Side effects that you should report to your doctor or health resident care associate as soon as p ossible: allergic reactions [...] attention (report to your doctor or health resident care associate if they continue or are bothersome): constipation [...] to an official disposal site. Contact the [facility] at [phone] or your [facility] government to find a site. [...] this medicine? Tell your doctor or health resident care associate if your pain does not go away, [...] cuts, scrapes, or blows. Date Last Reviewed: 12/01/201619998996-1636 [employer] [place] [address]. All righ ts reserved. This information is [...] and bl ood clots prevention. Prescription for Touchet given and side effects were explained. Patient states that he also takes oxycodone at home; patient and his family were educated about taki ng oxycodone or Touchet only and not both. OTC Tylenol intake precautions also discussed. Arabella ent and his family verbalized understanding and agreeable. Opportunity to ask questions give n, all questions were answered. Leana Pimentel RN documented in this encounter H&P Notes Brian Orosco MD - 09/10/2019 12:28 PM [facility] Service: Vascular Surgery Pre-Operative History [...] CV: No peripheral edema, rate regular SKIN: [place], warm, dry without rash/lesion MS: ROM not [...] Orosco MD - 09/10/2019 2:00 PM PDT [facility] Service: Vascular Surgery Operative Note Pre-operative Diagnosis: CKD and need for chcf dialysis access Post-operative Diagnosis: same Procedure(s): Right brachiocephalic fistula creation Surgeon: Brian Orosco MD Hospital Account Manager(s): None Anesthesia: Monitor Anesthesia care and Local [...] | | | Visit | | [address] [place], [place] | | | | | | [address] | | | | | | | [...] Testing | 65 - 99 mg/dL | [facility] | | | POC | performed at [facility];[address] | | LABORATORY | | | | [address];[place] | | | | | | [address] | | | | + + + + + + + + | Specimen | + + | | + + + + + + + | Performing | Address | City/State/Zipcode | Phone Number | | Organization | | | | + + + + + | [facility] | [address] | [place] [address] | [phone] | + + + + + POC Glucose (09/10/2019 12:13 PM PDT) + + + + + + | Component | Value | Ref Range | Performed | Pathologist | | | | | At | Signature | + + + + + + | Glucose, | 150 (H)Comment: Testing | 65 - 99 mg/dL | [facility] | | | POC | performed at [facility];[address] | | LABORATORY | | | | [address];[place], [place] | | | | | | [address] | | | | + + + + + + + + | Specimen | + + | | + + + + + + + | Performing | Address | City/State/Zipcode | Phone Number | | Organization | | | | + + + + + | [facility] | [address] | [place] [address] | [phone] | + + + + + documented [...] One week or | | | longer, dvdbsa-nbi-kucoo use of | | | at least [...]
--- OUTSIDE RECORDS SUMMARY | ~2020-08-16 | XMS | Encounter Summary ---
Demographics + + + | Address | [address] | | | [place] [address] | + + + | Home Phone [...] Providers + +------+ + | Care Commercial Cleaner Name | Role | Phone | [...] | | | stage 5, GFR | [address] | | | | | | less than | Phone: | | | | | | 15 ml/min | [phone] | | | | | | (HCC) | Fax: | | | | | | Procedures | [phone] | | | | | | VAS [...] + + | 10/20/ | Office | [facility] | Trisha Conner, MERY | CKD (chronic kidney | | 2019 | Visit | VASCULAR SURGERY | [address] | disease) stage 5, | | | | [address] | [place], [place] | GFR less than 15 | | | | [place], [place] | [address] | ml/min (HCC) | | | | [address] | | (Primary Dx); AVF | | | | [phone] | | (arteriovenous | | | | [...] DNP - 10/20/2019 2:30 PM [facility] [address] [place] [address] Office: [phone] DATE OF VISIT: 10/20/2019 PATIENT NAME: Kavon Andujar : 1940; AGE: 79 y.o.; Sex:M PHONE NUMBER: ; ; PROVIDER: Trisha Conner DNP PRIMARY CARE / REFERRING PHYSICIAN: No ref. provider found / aRhul Silva MD / [address] [facility] [address] / [place] [address] REASON FOR EVALUATION / CHIEF COMPLAINT: Vascular Surgery Postoperative Visit for AVF creation The patient presents today for a Vascular Surgery Postoperative Visit. The patient is statu s post right brachiocephalic AVF creation, which was performed on 09/10/2019 at the [facility] Operating Room. The patient is not having any pain. The patient denie s fever, wound drainage, increasing redness, pus, increasing pain, increasing swelling. Phys ical examination revealed surgical incision is healed. He has good thrills over the AVF site . Patient's operations label clerk is Dr. Acuna. The patient is not [...] | | | Visit | | [address] [place], [place] | | | | | | [address] | | | | | | | [...] + + | Performing | Address | City/State/[facility] | Phone Number | | Organization | [...]
--- OUTSIDE RECORDS SUMMARY | ~2020-08-16 | XMS | Encounter Summary ---
Demographics + + + | Address | [address] | | | [place] [address] | + + + | Home Phone [...] + +------+ + | Care Supply Chain Systems Manager Name | Role | Phone | [...] | | | [address] [place], [place] | [address] | | | | | [address] | | | | | | [phone] | | | +--------+ + + + [...] | | | Visit | | [address] [place], [place] | | | | | | [address] | | | | | | | [...]
--- OUTSIDE RECORDS SUMMARY | ~2020-08-16 | XMS | Encounter Summary ---
Demographics + + + | Address | [address] | | | [place] [address] | + + + | Home Phone [...] Team Providers + +------+ + | Care Crusher And Blender Operator Name | Role | Phone | + +------+ + | Rahul Silva MD | PCP | | + +------+ + Encounter Details +--------+---------+ + + + | Date | Type | Department | Care Team | Description | +--------+---------+ + + + | 12/06/ | Office | [facility] | Farrukh Acuna MD | CKD (chronic kidney | | 2020 | Visit | NEPHROLOGY [place] | [address] [place] | disease) stage 5, | | | | [address] | [address] [place], [place] | GFR less than 15 | | | | [address] | [address] | ml/min (HCC) | | | | [place], [place] | | (Primary Dx); Anemia | | | | [address] | | of chronic kidney | | | | [phone] | | failure, stage 5 | | [...] I see no need for acute SALES AGENT FINANCIAL REPORT SERVICE. I see no need to send him [...] with severe pneumonia, severe ZEKE; needed SALES AGENT FINANCIAL REPORT SERVICE for ~5 weeks b efore renal function recovery mid 12/2016. He was admitted to [facility] for 3 nights in July 2016 for [...] with severe pneumonia, severe ZEKE; needed SALES AGENT FINANCIAL REPORT SERVICE for ~5 weeks b efore renal function [...] I see no need for acute SALES AGENT FINANCIAL REPORT SERVICE. I see no need to send him [...] | Visit | | [facility] | | | | | | [address] | | | | | | | | +--------+ + + + + documented as of this encounter Visit Diagnoses + + | Diagnosis | + + | CKD (chronic kidney disease) stage 5, GFR less than 15 ml/min ([facility]) - Primary Chronic | | kidney disease, Stage V | + + | Anemia of chronic kidney failure, stage 5 ([facility]) | + + | Edema of [...]
--- OUTSIDE RECORDS SUMMARY | ~2020-08-16 | XMS | Encounter Summary ---
Demographics + + + | Address | [address] | | | [place] [address] | + + + | Home Phone [...] Providers + +------+ + | Care Senior Electrical Estimator Name | Role | Phone | + +------+ + | Rahul Silva MD | PCP | | + +------+ + Encounter Details +--------+ + + + + | Date | Type | Department | Care Team | Description | +--------+ + + + + | 05/27/ | Orders Only | [facility] | Conversion | | | 2019 | | NEPHROLOGY [place] | Transaction, | | | | | [address] | Provider Unknown | | | | | [address] [place] | | | | | | [address] | (Fax) | | | | | [phone] | | | +--------+ + + + [...] | | | Visit | | [facility] | | | | | | [address] | | | | | | | [...]
--- OUTSIDE RECORDS SUMMARY | ~2020-08-16 | XMS | Encounter Summary ---
Demographics + + + | Address | [address] | | | [place] [address] | + + + | Home Phone [...] Providers + +------+ + | Care Product Assurance Engineer Name | Role | Phone | [...] [address] [place] | [place], [place] | | | | | [place], [place] | [address] | | | | | [address] | [phone] | | | | | [phone] | | | +--------+ + + + [...] transfer the call to a rolf munoz dehydrating press operator was caller made aware that if [...] | | | Visit | | [address] [place] | | | | | | [address] | | | | | | | | +--------+ + + + + documented as of this encounter Visit Diagnoses Not on filedocumented in this encounter
--- OUTSIDE RECORDS SUMMARY | ~2020-08-16 | XMS | Encounter Summary ---
Demographics + + + | Address | [address] | | | [place] [address] | + + + | Home Phone [...] | + + +---------+ + | Charlotte Andjuar | ECON | Unknown | | + + +---------+ + Care Team Providers + +------+ + | Care Heel Wheeler Name | Role | Phone | [...] [address] | | | | | [place], [place] | [place], [place] | | | | | [address] | [address] | | | | | [phone] | [phone] | | | | | | | [...] | | | Visit | | [address] [place] | | | | | | [address] | | | | | | | [...]
--- OUTSIDE RECORDS SUMMARY | ~2020-08-16 | XMS | Encounter Summary ---
Demographics + + + | Address | [address] | | | [place] [address] | + + + | Home Phone [...] Providers + +------+ + | Care Inspector Automatic Typewriter Name | Role | Phone | + [...] + + | 07/21/ | Documentati | [facility] | Simon, | Results (07/19/19) | | 2019 | on | NEPHROLOGY [place] | [facility] | | | | | [address] [place] | Commercial Lender | | | | | [address] [facility] [place] | | | | | | [address] | | | | | | [phone] | | | +--------+ + + + [...] | | | Visit | | [address] [place] | | | | | | [address] | | | | | | | [...]
--- OUTSIDE RECORDS SUMMARY | ~2020-08-16 | XMS | Encounter Summary ---
Demographics + + + | Address | [address] | | | [place] [address] | + + + | Home Phone [...] Providers + +------+ + | Care Medical Appliance Maker Name | Role | Phone | + +------+ + PCP | Unavailable | + +------+ + Encounter Details +--------+ + + + + | Date | Type | Department | Care Team | Description | +--------+ + + + + | 05/22/ | [facility] | [facility] | Nelson Lutz MD | | | 1998 | Encounter | MED CTR GENERIC OP | [address], [place] | | | | | CONV DEPT [address] | [address] | | | | | [place], | [address] | | | | | [place] [address] | | | | | | [phone] | | | +--------+ + + + [...] [place] | | | | | | [address] | | | | | | | | +--------+ + + + + documented as of this encounter Visit Diagnoses Not on filedocumented in this encounter"
--- OUTSIDE RECORDS SUMMARY | ~2020-08-16 | XMS | Encounter Summary ---
Demographics + + + | Address | [address] | | | [place] [address] | + + + | Home Phone [...] Providers + +------+ + | Care Food Adviser Name | Role | Phone | + +------+ + | Rahul Silva MD | PCP | | + +------+ + Encounter Details +--------+ + + + + | Date | Type | Department | Care Team | Description | +--------+ + + + + | 07/14/ | Orders Only | [facility] | Conversion | | | 2018 | | [facility] | Transaction, | | | | | [address] | Provider Unknown | | | | | [address] [place], [place] | [phone] | | | | | [address] | (Fax) | | | | | [phone] | | | +--------+ + + + [...] [place] | | | | | | [address] | | | | | | | [...]
--- OUTSIDE RECORDS SUMMARY | ~2020-08-16 | XMS | Encounter Summary ---
Demographics + + + | Address | [address] | | | [place] [address] | + + + | Home Phone [...] Providers + +------+ + | Care Senior Catering Sales Manager Name | Role | Phone | + +------+ + | Rahul Silva MD | PCP | | + +------+ + Encounter Details +--------+ + + + + | Date | Type | Department | Care Team | Description | +--------+ + + + + | 07/30/ | Orders Only | [facility] | Conversion | | | 2016 | | [facility]ARL[facility] | Transaction, | | | | | [address] | Provider Unknown | | | | | [address] [place], [place] | [phone] | | | | | [address] | (Fax) | | | | | [phone] | | | +--------+ + + + [...] [place] | | | | | | [address] | | | | | | | [...]
--- OUTSIDE RECORDS SUMMARY | ~2020-08-16 | XMS | Encounter Summary ---
Demographics + + + | Address | [address] | | | [place] [address] | + + + | Home Phone [...] Team Providers + +------+ + | Care Billet Examiner Name | Role | Phone | + +------+ + | Mehrdad Bergman | PCP | | + +------+ + Encounter Details +--------+ + + + + | Date | Type | Department | Care Team | Description | +--------+ + + + + | 08/09/ | Virtual | [facility] | Farrukh Acuna MD | Persistent | | 2020 | Office | NEPHROLOGY [place] | [address] [place] | proteinuria (Primary | | | Visit | [address] | [address] [place], [place] | Dx); CKD (chronic | | | | [address] | [address] | kidney disease) | | | | [place], [place] | | stage 5, GFR less | | | | [address] | | than 15 ml/min | | | | [phone] | | ([facility]); Anemia of | | | | | | chronic kidney | | | | | | failure, stage 5 | | | | | | ([facility]); Iron | | | | [...] insulin | | | | | | ([facility]); Secondary | | | | | | hyperparathyroidism | | | | | | ([facility]); Edema of | | | [...] 03/01/19. He was in the ED at [facility] on 08/01/20 with chest pain, non-cardiac in origin per records that I reviewed from the ED. He was in the ED at [facility] in late 05/2020 with CP [...] 10/2016 with severe pneumonia, severe ZEKE; needed TOOLS AND PARTS ATTENDANT for ~5 weeks b efore renal function recovery mid 12/2016. He was admitted to [facility] for 3 nights in [...] 10/2016 with severe pneumonia, severe ZEKE; needed TOOLS AND PARTS ATTENDANT for ~5 weeks b efore renal function [...] ALEXI. I see no need for acute TOOLS AND PARTS ATTENDANT. I see no need to send him [...] or concerns. Truly yours, Farrukh Acuna MD [facility] This exam was initially conducted via a secure 256-bit AES encrypted bidirectional video se ssion. You have chosen to receive care through the use of telemedicine. Telemedicine enables [facility] care providers at different locations to [...] [place] | | | | | | [address] | | | | | | | [...] Anemia of chronic kidney failure, stage 5 ([facility]) | + + | Iron [...]
--- OUTSIDE RECORDS SUMMARY | ~2020-08-16 | XMS | Encounter Summary ---
Demographics + + + | Address | [address] | | | [place] [address] | + + + | Home Phone [...] Team Providers + +------+ + | Care Chapter Relations Administrator Name | Role | Phone | + +------+ + | Rahul Silva MD | PCP | | + +------+ + Encounter Details +--------+ + + + + | Date | Type | Department | Care Team | Description | +--------+ + + + + | 02/15/ | Orders Only | [facility] | Conversion | | | 2019 | | NEPHROLOGY [place] | Transaction, | | | | | [address] | Provider Unknown | | | | | [address] [place] | | | | | | [address] | (Fax) | | | | | [phone] | | | +--------+ + + + [...] SYSTEM[facility] | | | | | | [address] | | | | | | | [...]
--- OUTSIDE RECORDS SUMMARY | ~2020-08-16 | XMS | Encounter Summary ---
Demographics + + + | Address | [address] | | | [place] [address] | + + + | Home Phone [...] Team Providers + +------+ + | Care Urologic Surgeon Name | Role | Phone | + +------+ + | Rahul Silva MD | PCP | | + +------+ + Encounter Details +--------+ + + + + | Date | Type | Department | Care Team | Description | +--------+ + + + + | 01/26/ | Orders Only | [facility] | Conversion | | | 2014 | | [facility] | Transaction, | | | | | [address] | Provider Unknown | | | | | [address] [place], [place] | [phone] | | | | | [address] | | | | | | [phone] | | | +--------+ + + + [...] [place] | | | | | | [address] | | | | | | | [...] | | | LAB | | | Mongolian | | | | | + + [...]
--- OUTSIDE RECORDS SUMMARY | ~2020-08-16 | XMS | Encounter Summary ---
Demographics + + + | Address | [address] | | | [place] [address] | + + + | Home Phone [...] [place] | | | | | [address] | | + + + + + Care Team Providers + +------+ + | Care Ornamental Metalwork Designer Name | Role | Phone | [...] | | | | | | [address] | | | | | | [place], [place] | | | | | | [address] | | | | | | [phone] | | | +--------+ + + + [...] of this encounter Progress Notes Interface, Cut And Cover Line Worker In - 01/03/2007 5:08 AM PST [facility] and [address] [address] Department of Orthopaedics, School of Medicine OP19 December 21, 1997 Jerry Smiley M.D. [address] [place] [address] [address] [place] [address] RE:Kavon Andujar MR#:[id number] Smiley: Thank [...] Carlson might like. Sincerely, Eric Mcclure M.D. Accounting System Expert, Department of Orthopaedics and Rehabilitation ERICK/sara A documented in this encounter Plan of Treatment Not on filedocumented as of this encounter Visit Diagnoses Not on filedocumented in this encounter"
--- OUTSIDE RECORDS SUMMARY | ~2020-08-16 | XMS | Encounter Summary ---
Demographics + + + | Address | [address] | | | [place] [address] | + + + | Home Phone [...] Team Providers + +------+ + | Care Online Advertising Director Name | Role | Phone | [...] | [address] | [address] [facility] | | | | | [place], [place] | [address] [place], [place] | | | | | [address] | [address] | | | | | [phone] | | | +--------+ + + + [...] | | | Visit | | [address] [place] | | | | | | [address] | | | | | | | [...]
--- OUTSIDE RECORDS SUMMARY | ~2020-08-16 | XMS | Encounter Summary ---
Demographics + + + | Address | [address] | | | [place] [address] | + + + | Home Phone [...] Providers + +------+ + | Care Custom Studio Coordinator Name | Role | Phone | + +------+ + | Rahul Silva MD | PCP | | + +------+ + Encounter Details +--------+ + + + + | Date | Type | Department | Care Team | Description | +--------+ + + + + | 07/24/ | Orders Only | [facility] | Provider, | Chronic kidney | | 2019 | | SYSTEM GENERIC OP | MD [address] | disease, stage IV | | | | CONVERSION [address] | [address] | (severe) ([facility]); | | | | [address] [place], [place] | [place] [address] | Persistent | | | | [address] | | proteinuria; | | | | [phone] | | Secondary | | | | | | hyperparathyroidism | | | | | | of renal origin | | | | | | ([facility]); Family | | | | | [...] | | Visit | | [address] [place] | | | | | | [address] | | | | | | | [...] | | | | | ([facility]) Persistent | | | | | [...] | | | | | ([facility]) Persistent | | | | | [...] | | | | | ([facility]) Persistent | | | | | | proteinuria | | + +------+--------+ + + | Parathyroid Hormone, | Lab | Routin | Chronic kidney | Expected: | | Intact | | e | disease, stage IV | 08/01/2019, Expires: | | | | | (severe) ([facility]) | 05/31/2020 | | | | | Chronic kidney | | | | | | disease, stage IV | | | | | | (severe) ([facility]) | | | | | | [...] | | | | | ([facility]) Persistent | | | | | | proteinuria | | + +------+--------+ + + documented as of this encounter Visit Diagnoses + + | Diagnosis | + + | Chronic kidney disease, stage IV (severe) ([facility]) Chronic kidney disease, Stage IV | [...]
--- OUTSIDE RECORDS SUMMARY | ~2020-08-16 | XMS | Encounter Summary ---
Demographics + + + | Address | [address] | | | [place] [address] | + + + | Home Phone [...] [place] | | | | | [address] | | + + + + + Care Team Providers + +------+ + | Care Geospatial Systems Integrator Name | Role | Phone [...] [address] | | | | | | [place], [place] | | | | | | [address] | | | | | | [phone] | | | +--------+ + + + [...] as of this encounter Progress Notes Interface, Warehouse Pricing And Inventory Clerk In - 01/06/2007 5:03 AM PST CLINIC DATE: 11/10/97 [facility] - FOLLOW-UP VISIT [...] of narcotic medication misuse. Nelson Melara M.D. Consumer Studies Professor, [facility] MANDY/camryn cc: Robert Carlson M.D. Professor, Vascular Surgery documented in this encounter Plan of Treatment Not on filedocumented as of this encounter Visit Diagnoses Not on filedocumented in this encounter"
--- OUTSIDE RECORDS SUMMARY | ~2020-08-16 | XMS | Encounter Summary ---
Demographics + + + | Address | [address] | | | [place] [address] | + + + | Home Phone [...] Team Providers + +------+ + | Care Grade Recorder Name | Role | Phone | + [...] + + | 07/30/ | Telephone | [facility] | Brian Orosco MD | Establish Care | | 2019 | | VASCULAR SURGERY | [address] | (Referral) | | | | [address] [place] | [place], [place] | | | | | [place], [place] | [address] | | | | | [address] | [phone] | | | | | [phone] | | | +--------+ + + + [...] transfer the call to a p erikavidixie swiss type screw machine operator was caller made aware that [...] 2019 | Office | | [address] [facility] | | | | Visit | | [address] [place], [place] | | | | | | [address] | | | | | | | | +--------+ + + + + documented as of this encounter Visit Diagnoses Not on filedocumented in this encounter"
--- OUTSIDE RECORDS SUMMARY | ~2020-08-16 | XMS | Encounter Summary ---
Demographics + + + | Address | [address] | | [place] [address] | + + + | Home Phone [...] [place] | | | | | [address] | | + + + + + Care Team Providers + +------+ + | Care Photo Mask Cleaner Name | Role | Phone | + +------+ + PCP | Unavailable | + +------+ + Encounter Details +--------+ + + + + | Date | Type | Department | Care Team | Description | +--------+ + + + + | 04/06/ | Procedure - | Digestive Health | Record, Operation | Operative Report | | 1997 | | Center at [facility] [address] | | | | | Transcribed | [facility] | | | | | | for Health and | | | | | | Healing, [address] | | | | | | [place], [place] | | | | | | [address] | | | | | | [phone] | | | +--------+ + + + [...] 04/06/1998 12:00 AM PDTAssociated Order(s): OPERATION RECORD [place] [address], [place] [address] [facility] OPERATION RECORD Med Rec No.: [id number] Date: 04/06/98 Name: Kavon Andujar ATTENDING SURGEON: Galo Arora M.D. Honing Machine Set Up Operator, Division of Plastic & Reconstructive housing assistant property manager(S): Barry Fofana M.D. Resident, Plastic Surgery [...] needle counts were correct. Galo Arora M.D. Honing Machine Set Up Operator, Division of Plastic & Reconstructive Surgery WOJCIECH/pita [...] 04/06/1998 12:00 AM PDT [place] | | [facility] | | [address] [place] [address] | | [facility] | | | | OPERATION RECORD | | | | Med Rec No.: [id number] Date: 04/06/98 | | | | Name: Andujar, Kavon Morris | | | | | | ATTENDING SURGEON: | | Galo Arora M.D. | | Honing Machine Set Up Operator, | | Division of Plastic & | | Reconstructive Surgery | | CERAMICS MACHINE OPERATOR(S): | | Barry Fofana M.D. [...] | | Galo Arora M.D. | | Honing Machine Set Up Operator, | | Division of Plastic & | | Reconstructive Surgery | | WOJCIECH/pita | | | | P | | C: 05/12/98 lv | | cc: | | | + + documented in this encounter Visit Diagnoses Not on filedocumented in this encounter"
--- OUTSIDE RECORDS SUMMARY | ~2020-08-16 | XMS | Encounter Summary ---
Demographics + + + | Address | [address] | | | [place] [address] | + + + | Home Phone [...] Team Providers + +------+ + | Care Joy Operator Helper Name | Role | Phone [...] + + | 10/20/ | Telephone | [facility] | Simon, | Other (Tera F/U) | | 2018 | | NEPHROLOGY [place] | [facility] | | | | | [address] | Medicaid Nurse | | | | | LEO RODR[place]GUEZ [facility] | | | | | | [place] | | | | | | [address] | | | | | | [phone] | | | +--------+ + + + [...] Miscellaneous Notes Telephone Encounter - Trinidad Simon Review Analyst - 10/20/2019 10:47 [address] PSTCal[address] to [...] | | | Visit | | [address] [place], [place] | | | | | | [address] | | | | | | | | +--------+ + + + + documented as of this encounter Visit Diagnoses Not on filedocumented in this encounter
--- OUTSIDE RECORDS SUMMARY | ~2020-08-16 | XMS | Encounter Summary ---
Demographics + + + | Address | [address] | | | [place] [address] | + + + | Home Phone [...] Team Providers + +------+ + | Care Managed Services Consultant Name | Role | Phone | + +------+ + | Rahul Silva MD | PCP | | + +------+ + Encounter Details +--------+ + + + + | Date | Type | Department | Care Team | Description | +--------+ + + + + | 08/20/ | Orders Only | [facility] | Farrukh Acuna MD | Stage 4 chronic | | 2019 | | NEPHROLOGY [place] | [address] [place] | kidney disease (HCC) | | | | [address] | [address] [place], [place] | (Primary Dx); | | | | [address] | [address] | Persistent | | | | [place], [place] | | proteinuria; | | | | [address] | | Secondary | | | | [phone] | | hyperparathyroidism | | | | [...] | | | Visit | | [address] [place], [place] | | | | | | [address] | | | | | | | [...]
--- OUTSIDE RECORDS SUMMARY | ~2020-08-16 | XMS | Encounter Summary ---
Demographics + + + | Address | [address] | | | [place] [address] | + + + | Home Phone [...] [place] | | | | | [address] | | + + + + + Care Team Providers + +------+ + | Care Water Treatment Specialist Name | Role | Phone [...] | | | | | [facility], [address] | | | | | | [place], [place] | | | | | | [address] | | | | | | [phone] | | | +--------+ + + + [...] as of this encounter Progress Notes Interface, Grocery Team Member In - 01/09/2007 5:[address] [facility] CLINIC DATE: 10/03/97 [facility] [...] Vargas D.O. Resident, Anesthesiology Nelson Melara M.D. Athletic Instructor, Anesthesiology [facility] NESTOR/dm cc: [place] [address] JESSENIA RODRIGUEZ MD DEPARTMENT OF FAMILY MEDICINE [facility] documented in this encounter Plan of Treatment Not on filedocumented as of this encounter Visit Diagnoses Not on filedocumented in this encounter"
--- OUTSIDE RECORDS SUMMARY | ~2020-08-16 | XMS | Encounter Summary ---
Demographics + + + | Address | [address] | | | [place] [address] | + + + | Home Phone [...] Providers + +------+ + | Care Supervisor Metal Fabricating Name | Role | Phone | + +------+ + | Rahul Silva MD | PCP | | + +------+ + Encounter Details +--------+ + + + + | Date | Type | Department | Care Team | Description | +--------+ + + + + | 04/10/ | Orders Only | [facility] | Conversion | | | 2014 | | [facility] | Transaction, | | | | | [address] | Provider Unknown | | | | | [address] [place], [place] | [phone] | | | | | [address] | | | | | | [phone] | | | +--------+ + + + [...] [place] | | | | | | [address] | | | | | | | [...]
--- OUTSIDE RECORDS SUMMARY | ~2020-08-16 | XMS | Encounter Summary ---
Demographics + + + | Address | [address] | | | [place] [address] | + + + | Home Phone [...] Providers + +------+ + | Care Optical Glass Sawyer Name | Role | Phone | [...] [address] | | | | | [place], [place] | [place], [place] | | | | | [address] | [address] | | | | | [phone] | | | | | | | [...] | | | Visit | | [address] | | | | | | [address] | | | | | | | [...]
--- OUTSIDE RECORDS SUMMARY | 2020-08-16 18:32 | XMS ---
PreManage Notification: PORFIRIO ZAVALA Security Actuarial Assistant Events No recent Security Events currently on file CRITERIA MET - 6 ED Visits in 6 Months - [facility] - Has Care Guidelines - History of Sepsis Dx - PDMP - [facility] - 2 Visits in 30 Days CARE PROVIDERS JESSENIA GOSS [facility] 05/09/2020-Current PH[facility]: [phone] [facility]Current HARDIK Van PHONE: [phone] Alina Clark Field Sales Representative/Jersey Knitter 08/31/2018-Current PHONE: [phone] [facility] has no Care Guidelines for this patient. Care History Medical/Surgical 08/16/2020 [facility] - [facility] CONTACTED PCP OFFICE- DISCUSSED ONGOING ED VISIT CONCERNS- - PATIENT WAS LAST SEEN BY PCP ON 08/11/2020, CANCELLED APT ON 08/14/2020 AND HAS A FOLLOW UP APT ON 08/24/2020. - [facility] NOTIFIED OF ED VISIT 08/15/2020. 05/17/2020 [facility] Called PCP office to verify respiratory medication regimine. Patient has been prescribed DANA\T\#39;s in MDI and nebulizor form and triple therapy for mantanence inhaled medication. Patient\T\#39;s pharmacy history indicates that he is filling his inhaled medications. Will call patient\T\#39;s care information associate to offer inhaler training. 11/10/2019 [facility] - PLEASE MAKE SURE- ALL RECORDS ARE SENT TO DR BARTON-PATIENT DIALS SUPERVISOR IN [place]. E.Edin VISIT COUNT (12 MO.) 12 [facility]. TOTAL 12 NOTE: Visits indicate total known visits. ED/UCC VISIT TRACKING (12 MO.) 08/16/2020 18:30 [facility] [place] TYPE: Emergency COMPLAINT: - DIFFICULTY BREATHING 08/15/2020 13:19 [facility] [place] [place] TYPE: Emergency COMPLAINT: - SOB 08/01/2020 23:03 [facility] [place] [place] TYPE: Emergency COMPLAINT: - CHEST PAIN DIAGNOSES: - Dependence on renal dialysis - penitentiary (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 of insulin - Chest pain, unspecified - Chronic kidney disease, stage 4 (severe) - Heart failure, unspecified - Hypertensive heart and chronic kidney disease with heart fail - Nicotine dependence, unspecified, uncomplicated - Other shredded filler cigar maker machine (current) drug therapy - Type 2 diabetes mellitus with diabetic chronic kidney disease - Chronic obstructive pulmonary disease, unspecified 06/08/2020 06:43 [facility] [place] TYPE: Emergency COMPLAINT: - WEAKNESS, ABD PAIN DIAGNOSES: - Type 2 diabetes mellitus with diabetic chronic kidney disease - Other shredded filler cigar maker machine (current) drug therapy - penitentiary (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 of insulin - Allergy status [...] Chronic obstructive pulmonary disease, unspecified - Other shelter (current) drug therapy - Allergy status to other drugs, medicaments and biological sub - web ui developer (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 of insulin - Chest pain, unspecified - Personal history of nicotine dependence - Chronic kidney disease, stage 4 (severe) - Type 2 diabetes mellitus with diabetic chronic kidney disease - Heart failure, unspecified - Hypertensive heart and chronic kidney disease with heart fail 05/11/2020 17:15 [facility] [place] [place] TYPE: Emergency COMPLAINT: - SOB, WEAK, HIGH PULSE RATE DIAGNOSES: - penitentiary (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 of insulin - Heart failure, unspecified - penitentiary (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 of aspirin - Allergy status to other drugs, medicaments and biological sub - Weakness - Chronic kidney disease, stage 4 (severe) - Hypertensive heart and chronic kidney disease with heart fail - Chronic obstructive pulmonary disease, unspecified - Nicotine dependence, unspecified, uncomplicated - Other shelter (current) drug therapy - Type 2 diabetes [...] - Nicotine dependence, unspecified, uncomplicated - Other shelter (current) drug therapy - Chest pain, unspecified [...] with diabetic chronic kidney disease - Other shredded filler cigar maker machine (current) drug therapy - Chronic obstructive pulmonary disease, unspecified - Personal history of nicotine dependence 11/04/2019 13:11 [facility] [place] TYPE: Emergency COMPLAINT: - MEMORY PROBLEM DIAGNOSES: - Heart failure, unspecified - Allergy status to other drugs, medicaments and biological sub - Anemia in chronic kidney disease - Other shredded filler cigar maker machine (current) drug therapy - Personal history of nicotine dependence - Hypertensive heart and chronic kidney disease with heart fail - Chronic kidney disease, stage 4 (severe) - web ui developer (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 of insulin - Acute kidney failure, unspecified - Dependence on other enabling machines and devices - Vascular dementia without behavioral disturbance - web ui developer (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 of anticoagulants - web ui developer (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 of aspirin - Type 2 [...] nicotine dependence - Chest pain, unspecified - penitentiary (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 of aspirin - Personal history of transient ischemic attack (TIA), and cere - web ui developer (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 of insulin - Hypomagnesemia - Hypertensive heart and chronic kidney disease with heart fail - Chronic kidney disease, stage 4 (severe) - Other shredded filler cigar maker machine (current) drug therapy 09/27/2019 12:22 [facility] [place] TYPE: Emergency COMPLAINT: - SOB INPATIENT VISIT TRACKING (12 MO.) 09/27/2019 16:43 [place] [place] TYPE: Medical Surgical COMPLAINT: - PNA DIAGNOSES: - Adverse effect of other opioids, initial encounter - penitentiary (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 of antithrombotics/antiplatelets - Anemia in chronic kidney disease - Acquired absence of left leg above knee - 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 classified elsewh - Nicotine dependence, unspecified, uncomplicated - Panlobular emphysema - Panlobular emphysema - Type 2 diabetes mellitus with diabetic chronic kidney disease - web ui developer (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 of insulin - Allergy status to other drugs, medicaments and biological sub - Opioid dependence, uncomplicated - Other shelter (current) drug therapy - Nicotine dependence, unspecified, uncomplicated - Pneumonia due to Streptococcus pneumoniae - Chronic pain syndrome - Dependence on wheelchair - penitentiary (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 of insulin - Acquired absence [...] Hyperlipidemia, unspecified - Drug induced constipation - web ui developer (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 of aspirin - Anemia in chronic kidney disease - 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
[2020-08-17] MEDS ORDERED: NITROGLYCERIN0.4 MG SL (12:00)
--- NOTE | 2020-08-17 13:33 | EKG ---
[facility] [address] [facility] [place], [place] [address] Signed Sinus tachycardia Otherwise normal ECG No previous ECGs available Confirmed by BROOKE FERNÁNDEZ DO ([id number]) on 08/17/2020 1:33:26 PM Electronically Signed By: BROOKE FERNÁNDEZ DO 08/17/20 1333 PATIENT NAME: PORFIRIO ZAVALA Electrocardiogram DATE OF : 40 PHYSICIAN: BROOKE FERNÁNDEZ DO REPORT #: [id number] REPORT IS CONFIDENTIAL AND NOT TO BE RELEASED WITHOUT AUTHORIZATION
[2020-08-17] MEDS ORDERED: TRELEGY ELLIPT1 EACH INH (14:34)
[2020-08-17] MEDS ORDERED: AMLODIPINE BESYL5 MG PO (14:35)
[2020-08-17] MEDS ORDERED: BUPROPION XL300 MG PO (14:37)
[2020-08-17] MEDS ORDERED: DOXEPIN HCL50 MG PO (14:38)
[2020-08-17] MEDS ORDERED: NARCAN4 MG NAS (14:40)
--- NOTE | 2020-08-18 15:46 | PATH ---
[facility] [address] [facility] [place], [place] [address] Signed ORDERING PHYSICIAN: Parag Rene MD PATIENT NAME: PORFIRIO ZAVALA GENDER: M : 1940 SPECIMEN(S): No Source Given MOLECULAR PATHOLOGY RESULTS: SARS-CoV-2 Not Detected ADDITIONAL NOTES.: Positive results are indicative of the presence of SARS-CoV-2 RNA. The test will detect both and live SARS-CoV-2. Positive results do not rule out bacterial infection or co-infection with other viruses. Negative results do not rule-out SARS-CoV-2 infection and should not be used as the sole basis for patient management decisions. Negative results must be combined with other clinical observations, patient history, and epidemiological information. Inconclusive results indicate the minimum number of SARS-CoV-2 molecular targets required to reliably interpret the test was not met. Invalid results are possibly due to inhibiting or interfering substances in the collected sample. In both scenarios, please recollect if clinically indicated. The BiotteryPath COVID-19 combo test kit is a real-time PCR assay authorized to aid in the diagnosis of SARS-CoV2 infection. The test has not been validated for screening asymptomatic individuals. The test has not been FDA approved; it has been authorized by the FDA under an Emergency Use Authorization (EUA). This test is only authorized for the duration of the declaration that circumstances exist justifying the authorization of emergency use of in vitro diagnostic tests for detection and/or diagnosis of COVID-19 under Section 564(b)(1) of the Act, 21 U.S. C. 360bbb-3(b)(1), unless the authorization is terminated or revoked sooner. PERFORMING LABORATORY.: [facility], [address] [place] [id number] (Stationary Engineer Refrigeration: Inna Michelle MD, PhD.; CLIA#: [id number]).1 PATIENT NAME: PORFIRIO ZAVALA PATHOLOGY DATE OF : 40 REPORT #: [id number] PHYSICIAN: ROSI PATHOLOGY PCP: JESSENIA GOSS MD REPORT IS CONFIDENTIAL AND NOT TO BE RELEASED WITHOUT AUTHORIZATION [facility] [address] [place], [place] [address] Signed Diagnostician: ANNA Molecular Pathologist Electronically Signed 08/18/2020 Copies: ~ PATIENT NAME: PORFIRIO ZAVALA PATHOLOGY DATE OF : 40 REPORT #: [id number] PHYSICIAN: ROSI PATHOLOGY PCP: JESSENIA GOSS MD REPORT IS CONFIDENTIAL AND NOT TO BE RELEASED WITHOUT AUTHORIZATION
== END 2020-08-20 11:55 | disposition home or self-care (01) | DRG 291 ==
LOC: ED 18:30 → CCU 21:01 → MS 08-18 19:20
PROVIDERS: ADMIT Student in an Organized Health Care Education/Training Program; ATTEND Student in an Organized Health Care Education/Training Program
DX: I13.0 Hypertensive heart and chronic kidney disease with heart failure and stage 1 through stage 4 chronic kidney disease, or unspecified chronic kidney disease (principal); J96.21 Acute and chronic respiratory failure with hypoxia; I50.21 Acute systolic (congestive) heart failure; N18.4 Chronic kidney disease, stage 4 (severe); F11.20 Opioid dependence, uncomplicated; E87.2 Acidosis; Z20.828 Contact with and (suspected) exposure to other viral communicable diseases; E11.22 Type 2 diabetes mellitus with diabetic chronic kidney disease; J44.9 Chronic obstructive pulmonary disease, unspecified; G47.33 Obstructive sleep apnea (adult) (pediatric); E78.5 Hyperlipidemia, unspecified; F41.9 Anxiety disorder, unspecified; D63.1 Anemia in chronic kidney disease; F17.210 Nicotine dependence, cigarettes, uncomplicated; E87.5 Hyperkalemia; Z99.3 Dependence on wheelchair; Z89.512 Acquired absence of left leg below knee; Z88.8 Allergy status to other drugs, medicaments and biological substances; Z79.02 Long term (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 of antithrombotics/antiplatelets; Z79.82 Long term (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 of aspirin; Z79.4 Long term (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 of insulin; Z79.899 Other long term (current) drug therapy
CPT/HCPCS: 36415; 51702; 71045; 80048; 80053; 83735; 83880; 84100; 84484; 85025; 93005; 93010; 93306; 94640; 94660; 94760; 97162; 97166; 99285-25; C9803; J1650; J1815; J1940; Q9957

== ENCOUNTER 2020-08-24 19:05 | Emergency (ER) | payer MEDICARE, OTHER ==
[~2020-08-24] VITALS: Ht 172.7 cm; Wt 83.7 kg
--- OUTSIDE RECORDS SUMMARY | ~2020-08-24 | XMS | Encounter Summary ---
Demographics + + + | Address | [address] | | | [place] [address] | + + + | Home Phone | | + + + | Preferred Language | Unknown | + + + | Marital Status | | + + + | Judaism Affiliation | 1077 | + + + | Race | White | + + + | Ethnic Group | Not or | + + + Author + + + | Author | [facility] | | | and [place] | + + + | Organization | [facility] | | | [...] Team Providers + +------+ + | Care Network/Telecom Engineer Name | Role | Phone | + +------+ + | Rahul Silva MD | PCP | | + +------+ + Encounter Details +--------+ + + + + | Date | Type | Department | Care Team | Description | +--------+ + + + + | 07/18/ | Orders Only | [facility] | Conversion | | | 2015 | | NEPHROLOGY ERIS | Transaction, | | | | | [address] [facility] | Provider Unknown | | | | | [place] Shannan TRE [place]TE | [phone] | | | | | [address] | | | | | | [phone] | | | +--------+ + + + + Social History + +-------+ +--------+------+ | Tobacco Use | Types | Packs/Day | Years | Date | | | | | Used | | + +-------+ +--------+------+ | Never Assessed | | | | | + +-------+ +--------+------+ + + + | Sex Assigned at [...] Acuna MD | | | 2020 | Office | | [address] [facility] [address] | | | | Visit | | [address] [place] [address] | | | | | | [address] | | | | | | | | +--------+ + + + + documented as of this encounter Procedures + +--------+ + + + | Procedure Name | Priori | Date/Time | Associated Diagnosis | Comments | | | ty | | | | + +--------+ + + + | EXTERNAL LAB: CBC | Routin | 07/18/2016 | | Results for this | | | e | 1:29 PM | | procedure are in the | | | | PDT | | results section. | + +--------+ + + + | VITAMIN D, | Routin | 07/18/2016 | | Results for this | | DEFICIENCY SCREEN | e | 1:29 PM | | procedure are in the | | (25-HYDROXY) | | PDT | | results section. | + +--------+ + + + | URINALYSIS, | Routin | 07/18/2016 | | Results for this | | MICROSCOPIC ONLY | e | 1:29 PM | | procedure are in the | | | | PDT | | results section. | + +--------+ + + + | PROTEIN/CREATININE | Routin | 07/18/2016 | | Results for this | | RATIO, URINE | e | 1:29 PM | | procedure are in the | | | | PDT | | results section. | + +--------+ + + + | URIC ACID | Routin | 07/18/2016 | | Results for this | | | e | 1:29 PM | | procedure are in the | | | | PDT | | results section. | + +--------+ + + + | PARATHYROID HORMONE, | Routin | 07/18/2016 | | Results for this | | INTACT | e | 1:29 PM | | procedure are in the | | | | PDT | | results section. | + +--------+ + + + | MAGNESIUM | Routin | 07/18/2016 | | Results for this | | | e | 1:29 PM | | procedure are in the | | | | PDT | | results section. | + +--------+ + + + | RENAL FUNCTION PANEL | Routin | 07/18/2016 | | Results for this | | | e | 1:29 PM | | procedure are in the | | | | PDT | | results section. | + +--------+ + + + documented in this encounter Results Protein/Creatinine Ratio, Urine (07/18/2016 1:29 PM PDT) + + + + + + | Component | Value | Ref Range | Performed | Pathologist | | | | | At | Signature | + + + + + + | Protein/Cre | 1978.3 (A) | 0 - 150 | EXTERNAL [...] | | | + +---------+ + + Vitamin D, Deficiency Screen (25-Hydroxy) (07/18/2016 1:29 PM PDT) + +--------+ + + + | Component | Value | Ref Range | Performed | Pathologist | | | | | At | Signature | + +--------+ + + + | Vit D, | 27 (A) | 30 - 100 | EXTERNAL | [...] | | | + +---------+ + + Urinalysis, Microscopic Only (07/18/2016 1:29 PM PDT) + + + + + + | Component | Value | Ref Range | Performed | Pathologist | | | | | At | Signature | + + + + + + | Color | Yellow | | EXTERNAL | | | | | | LAB | | + + + + + + | Clarity, | Clear | | EXTERNAL | | | Urine | | | LAB | | + + + + + + | Specific | 1.013 | 1.005 - 1.030 | EXTERNAL | | | Crane, | | | LAB | | | Urine | | | | | + + + + + + | Leukocyte | Negative | | EXTERNAL | | | Esterase, | | | LAB | | | Urine | | | | | + + + + + + | Nitrite, | Negative | | EXTERNAL | | | Urine | | | LAB | | + + + + + + | Urobilinoge | Normal | | EXTERNAL | | | n, Urine | | | LAB | | + + + + + + | Protein, | Comment: 150 | | EXTERNAL | | | Urine | | | LAB | | + + + + + + | pH, Urine | 7 | 5 - 9 | EXTERNAL | | | | | | LAB | | + + + + + + | Blood, | Negative | | EXTERNAL | | | Urine | | | LAB | | + + + + + + | Ketones | Negative | | EXTERNAL | | | | | | LAB | | + + + + + + | Bilirubin, | Negative | | EXTERNAL | | | Urine | | | LAB | | + + + + + + | Glucose, | Comment: 300 | | EXTERNAL | | | Urine | | | LAB | | + [...] + +---------+ + + External Lab: CBC (07/18/2016 1:29 PM PDT) + + + + + + | Component | Value | Ref Range | Performed | Pathologist | | | | | At | Signature | + + + + + + | WBC | 10.5 | 4.5 - 11.0 10 | EXTERNAL | | | | | | LAB | | + + + + + + | Non- | 3.48 (A) | 4.3 - 5.7 10 | EXTERNAL | | | Red Blood | | | LAB | | | Cells | | | | | | Counted | | | | | + + + + + + | Hemoglobin | 10.5 (A) | 13.5 - 18.0 | EXTERNAL | | | | | g/dL | LAB | | + + + + + + | Hematocrit, | 31.7 (A) | 41 - 50 % | EXTERNAL | | | POC | | | LAB | | + + + + + + | MCV | 91.2 | 81 - 99 fL | EXTERNAL [...] + + + + | Platelet | 278 | 140 - 440 K/ L | EXTERNAL | | | Count | | | LAB | | | Plasma | | | | | + + + + + + | RDW-CV | | % | EXTERNAL | | [...] | | | + +---------+ + + Uric Acid (07/18/2016 1:29 PM PDT) + +-------+ + + + | Component | Value | Ref Range | Performed | Pathologist | | | | | At | Signature | + +-------+ + + + | Uric Acid | 6.2 | 4.4 - 7.6 | EXTERNAL | | | | | [...] + +---------+ + + Parathyroid Hormone, Intact (07/18/2016 1:29 PM PDT) + +-------+ + + + | Component | Value | Ref Range | Performed | Pathologist | | | | | At | Signature | + +-------+ + + + | PTH INTACT | 18.62 | 15 - 65 pg/mL | EXTERNAL [...] | | + +---------+ + + Magnesium (07/18/2016 1:29 PM PDT) + +-------+ + + + | Component | Value | Ref Range | Performed | Pathologist | | | | | At | Signature | + +-------+ + + + | Magnesium | 2.1 | 1.7 - 2.5 mg/dL | EXTERNAL [...] + +---------+ + + Renal Function Panel (07/18/2016 1:29 PM PDT) + + + + + + | Component | Value | Ref Range | Performed | Pathologist | | | | | At | Signature | + + + + + + | Glucose, | 159 (A) | 70 - 100 mg/dL | EXTERNAL | | | Fasting | | | LAB | | + + + + + + | BUN | 26 (A) | 6 - 23 mg/dL | EXTERNAL | | | | | | LAB | | + + + + + + | Creatinine | 1.86 (A) | 0.70 - 1.18 | EXTERNAL | | | | | mg/dL | LAB | | + + + + + + | PHOSPHORUS | | mg/dL | EXTERNAL | | | | | | LAB | | + + + + + + | Albumin | 3.5 | 3.5 - 5.0 | EXTERNAL | | | | | | LAB | | + + + + + + | Na | 136 | 132 - 143 | EXTERNAL | | | | | mmol/L | LAB | | + + + + + + | K | 4.7 | 3.6 - 5.1 | EXTERNAL | | | | | mmol/L | LAB | | + + + + + + | Cl | 99 | 95 - 112 mmol/L | EXTERNAL | | | | | | LAB | | + + + + + + | CO2 | 25 | 19 - 31 mmol/L | EXTERNAL | | | | | | LAB | | + + + + + + | Anion Gap | 16.7 | 7 - 21 mmol/L | EXTERNAL | | | | | | LAB | | + + + + + + | eGFR, | | | EXTERNAL | | | non- | | | LAB | | | [place] | | | | | + + + + + + | Phosphorus, | 3.9 | 2.5 - 5.0 | EXTERNAL | | | Inorganic | | | LAB | | + + + + + + | BUN/Creatin | 14.0 | 6.0 - 28.6 | EXTERNAL | | | ine Ratio | | | LAB | | + + + + + + | Calcium | 8.7 | 8.4 - 10.2 | EXTERNAL | | | | | mg/dL | LAB | | + + + + + + | Estimated | 35 | mg/dL | EXTERNAL | | | [...]
--- OUTSIDE RECORDS SUMMARY | ~2020-08-24 | XMS | Encounter Summary ---
Demographics + + + | Address | [address] | | | [place] [address] | + + + | Home Phone | | + + + | Preferred Language | Unknown | + + + | Marital Status | Single | + + + | Congregational Affiliation | PRO | + + + | Race | White | + + + | Ethnic Group | Not or | + + + Author + + + | Author | [facility] | + + + | Organization | [facility] | + + + | Address | Unknown | + + + | Phone | Unavailable | + + + Support + + + + + | Name | Relationship | Address | Phone | + + + + + | Darci Andujar | [address] | [place] | | | | | [address] | | + + + + + Care Team Providers + +------+ + | Care Chef De Cuisine Name | Role | Phone | + +------+ + | Rahul Silva MD | PCP | | + +------+ + Encounter Details +--------+ + + + + | Date | Type | Department | Care Team | Description | +--------+ + + + + | 01/14/ | Office | UNKNOWN DEPARTMENT | Other, Faculty | Progress Note | | 2000 | Visit-Trans | [address] [facility] | [phone] | | | | cuau[address]em[address] | [address] | | | | | | [place], [place] | | | | | | [address] | | | +--------+ + + + [...] documented as of this encounter Progress Notes Other, Faculty - 06/28/2008 1:58 PM PDT ESTABLISHED PATIENT EXAMINATION DATE: 01/14/2001 PATIENT: Kavon Andujar [id number] HISTORY: 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 The amputation was revised in 1996 secondary to pain. He underwent neuroma excision by the plastic surgeon in 1997. He now presents with worsening stump pain over the past year. He does have some point tenderness over the femur, but his main complaint is shooting pains and occasional paresthesias in the stump. He has seen numerous specialists, by his reports, who have not been able to offer him any relief. PHYSICAL EXAMINATION: EXTREMITIES: The stump is warm and well perfused, and there is a palpable femoral pulse. There is some point tenderness over the femur. IMPRESSION: Left above-knee stump pain. PLAN 1. I spoke with him about resecting some of the femur and that this might help with some of the point tenderness over the femur, but I did not feel that this would significantly help his shooting pain or paresthesias. Since his main complaints are the shooting pains and paresthesias, he did not wish to pursue this option. We did recommend that he see one of our antenna specialist for further evaluation, and he did appear interested in doing that. 2. Referral to Dr. Willis in Orthopedics. Yuriy Huang M.D. customer supply chain analyst KYLEE / [id number] / [id number] / [id number] / [id number] C: 01/23/2001 nw documented in this encounter Plan of Treatment Not on filedocumented as of this encounter Visit Diagnoses Not on filedocumented in this encounter"
--- OUTSIDE RECORDS SUMMARY | ~2020-08-24 | XMS | Encounter Summary ---
Demographics + + + | Address | [address] | | | [place] [address] | + + + | Home Phone | | + + + | Preferred Language | Unknown | + + + | Marital Status | | + + + | Anabaptism Affiliation | 1077 | + + + | Race | White | + + + | Ethnic Group | Not or | + + + Author + + + | Author | [facility] | | | and [place] | + + + | Organization | [facility] | | | and [...] Team Providers + +------+ + | Care Emergency Services Dispatcher Name | Role | Phone | + [...] [address] | | | | | [place], [place] | [place], [place] | | | | | [address] | [address] | | | | | [phone] | [phone] | | | | | | | [...] | | [address] [facility] | | | | Visit | | [address] | | | | | | [address] | | | | | | | [...]
--- OUTSIDE RECORDS SUMMARY | ~2020-08-24 | XMS | Encounter Summary ---
Demographics + + + | Address | [address] | | | [place] [address] | + + + | Home Phone [...] Team Providers + +------+ + | Care Stone Operator Name | Role | Phone | + +------+ + | Rahul Silva MD | PCP | | + +------+ + Reason for Visit +---------+ + | Reason | Comments | +---------+ + | Results | 01/25/20 | +---------+ + Encounter Details +--------+ + + + + | Date | Type | Department | Care Team | Description | +--------+ + + + + | 01/30/ | Documentati | [facility] | Simon, | Results (01/25/20) | | 2020 | on | NEPHROLOGY CONNIE | [facility] | | | | | [address] | Music Box Mechanic | | | | | [address] [place], [place] | | | | | | [address] | | | | | | [phone] | | | +--------+ + + + [...] 2019 | Office | | [address] [facility] | | | | Visit | | [address] | | | | | | [address] | | | | | | | | +--------+ + + + + documented as of this encounter Procedures + +--------+ + + + | Procedure Name | Priori | Date/Time | Associated Diagnosis | Comments | | | ty | | | | + +--------+ + + + | BASIC METABOLIC | Routin | 01/25/2020 | | Results for this | | PANEL | e | | | procedure are in the | | | | | | results section. | + +--------+ + + + documented in this encounter Results Basic Metabolic Panel (01/25/2020) + + + + + + | [...] | 3.9 | 3.6 - 5.1 | | | | | | mmol/L | | | + + + + + + | Cl | 99 | 95 - 112 mmol/L | | | + + + + + + | CO2 | 28 | 19 - 31 mmol/L | | | + + + + + + | Anion Gap | 16 | 7 - 21 mmol/L | | | + + + + + + | Glucose | 100 | 70 - 100 mg/dL | | | + + + + + + | BUN | 50 (A) | 6 - 23 mg/dL | | | + + + + + + | Creatinine | 4.68 (A) | 0.70 - 1.18 | | | | | | mg/dL | | | + + + + + + | Estimated | 12.0 (A) | 60.0 - 140.0 | | | | GFR | | mL/min/1.73m2 | | | + + + + + + | BUN/Creatin | 10.7 | 6.0 - 28.6 | | | | ine Ratio | | | | | + + + + + + + + | Specimen | + + | Blood | + + documented in this encounter Visit Diagnoses Not on filedocumented in this encounter"
--- OUTSIDE RECORDS SUMMARY | ~2020-08-24 | XMS | Encounter Summary ---
Demographics + + + | Address | [address] | | | [place] [address] | + + + | Home Phone | | + + + | Preferred Language | Unknown | + + + | Marital Status | | + + + | Anglican Affiliation | 1077 | + + + [...] Team Providers + +------+ + | Care Decal Transferrer Name | Role | Phone | + [...] | | [address] | [place] [address] | | | | | [place] [address] | | | | | | [phone] | | | +--------+ + + + [...] Office | | [address] [facility] | | | | Visit | | [address] [place] | | | | | | [address] | | | | | | | | +--------+ + + + + documented as of this encounter Procedures + +--------+ + + + | Procedure Name | Priori | Date/Time | Associated Diagnosis | Comments | | | ty | | | | + +--------+ + + + | XR CHEST 1 VIEW | Routin | 07/20/2017 | | Results for this | | | e | 12:00 AM | | procedure are in the | | | | PDT | | results section. | + +--------+ + + + documented in this encounter Results XR Chest 1 Vw (07/20/2017 12:00 AM PDT) + + | Specimen [...]
--- OUTSIDE RECORDS SUMMARY | ~2020-08-24 | XMS | Encounter Summary ---
Demographics + + + | Address | [address] | | | [place] [address] | + + + | Home Phone | | + + + | Preferred Language | Unknown | + + + | Marital Status | | + + + | Muslim Affiliation | 1077 | + + + [...] Team Providers + +------+ + | Care Mortgage Closer Name | Role | Phone | + [...] [address] | | | | | [place], [place] | [place], [place] | | | | | [address] | [address] | | | | | [phone] | | | | | | | [...] 2020 | Office | | [address] [facility] | | | | Visit | | [address] [place] | | | | | | [address] | | | | | | | | +--------+ + + + + documented as of this encounter Procedures + +--------+ + + + | Procedure Name | Priori | Date/Time | Associated Diagnosis | Comments | | | ty | | | | + +--------+ + + + | CK TOTAL | Routin | 11/09/2016 | | Results for this | | | e | 4:37 AM | | procedure are in the | | | | PST | | results section. | + +--------+ + + + documented in this encounter Results CK Total (11/09/2016 4:37 AM PST) + +-------+ + + + | Component | Value | Ref Range | Performed | Pathologist | | | | | At | Signature | + +-------+ + + + | CK, Total | 263 | 55 - 400 U/L | EXTERNAL [...]
--- OUTSIDE RECORDS SUMMARY | ~2020-08-24 | XMS | Encounter Summary ---
Demographics + + + | Address | [address] | | | [place] [address] | + + + | Home Phone | | + + + | Preferred Language | Unknown | + + + | Marital Status | | + + + | Pentecostalism Affiliation | 1077 | + + + | Race | White | + + + | Ethnic Group | Not or | + + + Author + + + | Author | [facility] | | | and [place] | + + + | Organization | [facility] | | [...] Providers + +------+ + | Care Cloth Examiner Name | Role | Phone | + +------+ + | Rahul Silva MD | PCP | | + +------+ + Encounter Details +--------+ + + + + | Date | Type | Department | Care Team | Description | +--------+ + + + + | 02/16/ | Abstract | [facility] | Jose L Magana, | PAOLO (obstructive | | 2013 | | PULMONARY [address] | MD [address] | sleep apnea) | | | | [place] Tonya Castaneda, | [place] | (Primary Dx); COPD | | | | [place] [address] | [address] | (chronic obstructive | | | | [phone] | | pulmonary disease) | | | | | | ([facility]) | +--------+ + + + [...] 2020 | Office | | [address] [facility] | | | | Visit | | [address] [facility] | | | | | | [address] | | | | | | | | +--------+ + + + + documented as of this encounter Visit Diagnoses + + | Diagnosis | + + | PAOLO (obstructive sleep apnea) - Primary Obstructive sleep apnea (adult) (pediatric) | + + | COPD (chronic obstructive pulmonary disease) (HCC) Chronic airway obstruction, not | | elsewhere classified | + + documented in this encounter"
--- OUTSIDE RECORDS SUMMARY | ~2020-08-24 | XMS | Encounter Summary ---
Demographics + + + | Address | [address] | | | [place] [address] | + + + | Home Phone | | + + + | Preferred Language | Unknown | + + + | Marital Status | | + + + | Roman Catholic Affiliation | 1077 | + + + | Race | White | + + + | Ethnic Group | Not or | + + + Author + + + | Author | [facility] | | | and [place] | + + + | Organization | [facility] | | | [...] Team Providers + +------+ + | Care Systems Applications Programming Lead Name | Role | Phone | + [...] + + | 08/09/ | Documentati | [facility] | Simon, | Other ([place] | | 2019 | on | NEPHROLOGY CONNIE | Charlie Abdi | ER note 08/01/20) | | | | [address] | Loan Documentation Specialist | | | | | [address] [facility] [place] | | | | | | [address] | | | | | | [phone] | | | +--------+ + + + [...] | Office | | [address] [facility] | | | | Visit | | [address] [place] | | | | | | [address] | | | | | | | [...]
--- OUTSIDE RECORDS SUMMARY | ~2020-08-24 | XMS | Encounter Summary ---
Demographics + + + | Address | [address] | | | [place] [address] | + + + | Home Phone | | + + + | Preferred Language | Unknown | + + + | Marital Status | | + + + | Cheondoism Affiliation | 1077 | + + + | Race | White | + + + | Ethnic Group | Not or | + + + Author + + + | Author | [facility] | | | and [place] | + + + | Organization | [facility] | | | and [...] Team Providers + +------+ + | Care Hydrographical Technical Officer Name | Role | Phone | [...] | | | [address] | [place] [address] | | | | | [place] [address] | | | | | | [phone] | | | +--------+ + + + [...] | Office | | [address] [facility] | | | | Visit | | [address] [facility] | | | | | | [address] | | | | | | | [...]
--- OUTSIDE RECORDS SUMMARY | ~2020-08-24 | XMS | Encounter Summary ---
Demographics + + + | Address | [address] | | | [place] [address] | + + + | Home Phone [...] Team Providers + +------+ + | Care Wastewater Technician Name | Role | Phone | [...] | | [address] | [place] [address] | | | | | [place] [address] | | | | | | [phone] | | | +--------+ + + + [...] 2019 | Office | | [address] [facility] | | | | Visit | | [address] [place] | | | | | | [address] | | | | | | | [...]
--- OUTSIDE RECORDS SUMMARY | ~2020-08-24 | XMS | Encounter Summary ---
Demographics + + + | Address | [address] | | | [place] [address] | + + + | Home Phone | | + + + | Preferred Language | Unknown | + + + | Marital Status | | + + + | Denominational Affiliation | 1077 | + + + [...] Team Providers + +------+ + | Care Tufting Creeler Name | Role | Phone | + +------+ + | Mehrdad Bergman | PCP | | + +------+ + Encounter Details +--------+ + + + + | Date | Type | Department | Care Team | Description | +--------+ + + + + | 08/24/ | Telephone | [facility] | Farrukh Acuna MD | | | 2020 | | NEPHROLOGY [place]IE | [address] [place] | | | | | [address] [place] | [address] [place], [place] | | | | | [address] [place], [place] | [address] | | | | | [address] | | | | | | [phone] | | | +--------+ + + + [...] Miscellaneous Notes Telephone Encounter - Trin[place] Simon Medical Assistant - 08/24/2020 4:11 PM PDTPatie nts daughter called to Electronically signed by Charlie Kraft Assistant at 6:05 PM PDTdocumented in this encounter Plan of Treatment +--------+ + + + + | Date | Type | Specialty | Care Team | Description | +--------+ + + + + | 10/30/ | Virtual | Nephrology | Farrukh Acuna MD | | | 2019 | Office | | [address] [facility] | | | | Visit | | [address] [place] | | | | | | [address] | | | | | | | | +--------+ + + + + documented as of this encounter Visit Diagnoses Not on filedocumented in this encounter"
--- OUTSIDE RECORDS SUMMARY | ~2020-08-24 | XMS | Encounter Summary ---
Demographics + + + | Address | [address] | | | [place] [address] | + + + | Home Phone | | + + + | Preferred Language | Unknown | + + + | Marital Status | | + + + | Uatsdin Affiliation | 1077 | + + + | Race | White | + + + | Ethnic Group | Not or | + + + Author + + + | Author | [facility] | | | and [place] | + + + | Organization | [facility] | | | [...] Team Providers + +------+ + | Care Plate Worker Helper Name | Role | Phone | + +------+ + | Rahul Silva MD | PCP | | + +------+ + Encounter Details +--------+ + + + + | Date | Type | Department | Care Team | Description | +--------+ + + + + | 11/10/ | Orders Only | [facility] | Conversion | | | 2016 | | NEPHROLOGY CONNIE | Transaction, | | | | | [address] | Provider Unknown | | | | | [address] [place] | | | | | | [address] | (Fax) | | | | | [phone] | | | +--------+ + + + [...] Office | | [address] [facility] | | | | Visit | | [address] [facility] | | | | | | [address] | | | | | | | [...]
--- OUTSIDE RECORDS SUMMARY | ~2020-08-24 | XMS | Encounter Summary ---
Demographics + + + | Address | [address] | | | [place] [address] | + + + | Home Phone | | + + + | Preferred Language | Unknown | + + + | Marital Status | Single | + + + | Baptist Affiliation | PRO | + + + | Race | White | + + + | Ethnic Group | Not or | + + + Author + + + | Author | [facility] | + + + | Organization | [facility] | + + + | Address | Unknown | + + + | Phone | Unavailable | + + + Support + + + + + | Name | Relationship | Address | Phone | + + + + + | Darci Zavala | [address] | [place] | | | | | [address] | | + + + + + Care Team Providers + +------+ + | Care Signals Intelligence Analysis Manager Name | Role | Phone | [...] [place] | | | | | | [address] | | | | | | [place], [place] | | | | | | [address] | | | | | | [phone] | | | +--------+ + + + [...] as of this encounter Progress Notes Interface, Ledger Poster In - 12/28/2006 5:10 AM PST [facility] [place] [address] [place], [place] [address] or January 31, 1998 GRIFFIN SMILEY MD [address] [place] [address] [place] [address] RE:PORFIRIO ZAVALA MR#:[id number] Smiley: As [...] to hear in our conversation that the [facility] does not cover Ultram in their formulary, [...] in the future. Sincerely, Nelson Melara M.D. Global Climate Change Researcher, Anesthesiology [facility] MANDY/geovanni documented in this encounter Plan of Treatment Not on filedocumented as of this encounter Visit Diagnoses Not on filedocumented in this encounter"
--- OUTSIDE RECORDS SUMMARY | ~2020-08-24 | XMS | Encounter Summary ---
Demographics + + + | Address | [address] | | | [place] [address] | + + + | Home Phone [...] Team Providers + +------+ + | Care Robotics Application Engineer Name | Role | Phone | + +------+ + | Rahul Silva MD | PCP | | + +------+ + Encounter Details +--------+ + + + + | Date | Type | Department | Care Team | Description | +--------+ + + + + | 12/06/ | Orders Only | [facility] | Farrukh Acuna MD | Essential | | 2020 | | NEPHROLOGY [place] | [address] [place] | hypertension | | | | [address] [place] | [address] [place], [place] | (Primary Dx); CKD | | | | [address] [place], [place] | [address] | (chronic kidney | | | | [address] | | disease) stage 5, | | | | [phone] | | GFR less than 15 | [...] 2019 | Office | | [address] [facility] [place] | | | | Visit | | [address] [place] | | | | | | [address] | | | | | | | [...] [place]) | | | | | | Persistent [...] [place]) | | | | | | Persistent [...] [place]) | | | | | | Persistent [...] [place]) | | | | | | Persistent [...] [place]) | | | | | | Hypomagnesemia [...] | ([facility]) Persistent | | | | | | [...] ml/min ([facility]) Anemia | | | | | | of chronic kidney | | | | | | failure, stage 5 | | | | | | ([facility]) Persistent | | | | | | [...] [place]) | | | | | | Persistent [...]
--- OUTSIDE RECORDS SUMMARY | ~2020-08-24 | XMS | Encounter Summary ---
Demographics + + + | Address | [address] | | | [place] [address] | + + + | Home Phone [...] Team Providers + +------+ + | Care Security Inspector Name | Role | Phone | + +------+ + | Rahul Silva MD | PCP | | + +------+ + Encounter Details +--------+ + + + + | Date | Type | Department | Care Team | Description | +--------+ + + + + | 03/24/ | Orders Only | [facility] | Farrukh Acuna MD | | | 2017 | | NEPHROLOGY [place] | [address] [place] | | | | | [address] [place] | [address] [place], [place] | | | | | [address] [place], [place] | [address] | | | | | [address] | | | | | | [phone] | | | +--------+ + + + [...] 2020 | Office | | [address] [facility] | | | | Visit | | [address] [place], [place] | | | | | | [address] | | | | | | | | +--------+ + + + + documented as of this encounter Procedures + +--------+ + + + | Procedure Name | Priori | Date/Time | Associated Diagnosis | Comments | | | ty | | | | + +--------+ + + + | BASIC METABOLIC | Routin | 03/24/2017 | | Results for this | | PANEL | e | 2:55 PM | | procedure are in the | | | | PDT | | results section. | + +--------+ + + + documented in this encounter Results Basic Metabolic Panel (03/24/2017 2:55 PM PDT) + + + + + + | Component | Value | Ref Range | Performed | Pathologist | | | | | At | Signature | + + + + + + | Glucose, | 244 (A) | 70 - 100 mg/dL | EXTERNAL | | | Fasting | | | LAB | | + + + + + + | BUN | 40 (A) | 6 - 23 mg/dL | EXTERNAL | | | | | | LAB | | + + + + + + | Creatinine | 1.91 (A) | 0.70 - 1.18 | EXTERNAL | | | | | mg/dL | LAB | | + + + + + + | BUN/Creatin | 20.9 | 6.0 - 28.6 | EXTERNAL | [...] + + + | Anion Gap | 17.2 | 7 - 21 mmol/L | EXTERNAL [...]
--- OUTSIDE RECORDS SUMMARY | ~2020-08-24 | XMS | Encounter Summary ---
Demographics + + + | Address | [address] | | | [place] [address] | + + + | Home Phone [...] + + + | Author | [facility] | | | and [place] | + + + | Organization | [facility] | | | [...] Team Providers + +------+ + | Care Paint Roller Winder Name | Role | Phone | + +------+ + | Rahul Silva MD | PCP | | + +------+ + Encounter Details +--------+ + + + + | Date | Type | Department | Care Team | Description | +--------+ + + + + | 03/26/ | Orders Only | [facility] | Victoriano [place] | | | 2015 | | [address] | MD [address] | | | | | [address] | [address] | | | | | [place], [place] | [place] [address] | | | | | [address] | [phone] | | | | | [phone] | | | +--------+ + + + [...] 2020 | Office | | [address] [facility] [place] | | | | Visit | | [facility] | | | | | | [address] | | | | | | | | +--------+ + + + + documented as of this encounter Procedures + +--------+ + + + | Procedure Name | Priori | Date/Time | Associated Diagnosis | Comments | | | ty | | | | + +--------+ + + + | ECHO INTERPRETATION | Routin | 03/26/2016 | | Results for this | | OF OUTSIDE FILMS | e | 3:55 PM | | procedure are in the | | | | PDT | | results section. | + +--------+ + + + documented in this encounter Results ECHO Interpretation of Outside Films (03/26/2016 3:55 PM PDT) + + | Specimen | + + | | + + + + + | Impressions | Performed At | + + + | 1. This was a technically difficult study with suboptimal views. 2. | | | Overall left ventricular systolic function is normal with, an EF | | | between 65 - 70 %. 3. There is mild concentric left ventricular | | | hypertrophy. | | + + + + + + | Narrative | Performed At | + + + | Patient Name: Kavon Andujar Date of : 1940 | | | Performing Physician: VICTORIANO BIRMINGHAM MD | | | | | | INDICATIONS HTN, SOB CONCLUSIONS 1. | | | This was a technically difficult study with suboptimal views. 2. | | | Overall left ventricular systolic function is normal with, an EF | | | between 65 - 70 %. 3. There is mild concentric left ventricular | | | hypertrophy. FINDINGS -------- Study: This was a technically | | | difficult study with suboptimal views. Left Ventricle: Overall left | | | ventricular systolic function is normal with, an EF between 65 - 70 %. | | | Left Ventricle: The left ventricle cavity size is normal. Left | | | Ventricle: There is mild concentric left ventricular hypertrophy. | | | Right Ventricle: The right ventricle is normal in size. Left Atrium: | | | The left atrial size is normal. Right Atrium: The right atrial size | | | is normal. Aortic Valve: The aortic valve was not well visualized. | | | Aortic Valve: Aortic valve is trileaflet and is mildly thickened. | | | Aortic Valve: There is mild aortic valve sclerosis without stenosis. | | | Aortic Valve: The aortic valve is mildly calcified. Mitral Valve: The | | | mitral valve is normal. Mitral Valve: Mild mitral regurgitation is | | | present. Mitral Valve: Mild mitral annular calcification present. | | | Tricuspid Valve: Trace tricuspid regurgitation present. Tricuspid | | | Valve: There is no evidence of pulmonary hypertension. Pulmonic | | | Valve: Trace pulmonic regurgitation. Pericardium: There is no | | | pericardial effusion. IVC/Hepatic Veins: The IVC is normal size | | | (1.5-2.5cm) and collapses >50% with sniff, consistent with central | | | venous pressures of 5-10mmHg. MEASUREMENTS | | | Party Plan Sales Agent: MARLENA Authenticated by: VICTORIANO BIRMINGHAM MD Report | | | Date/Time: 03-27-2016 13:39:46 | | + + + + + | Procedure Note | + + | Wiley, Rad Conversion - 07/22/2019 7:56 PM PDT Patient Name: Demetra Andujar of | | : 1940 Performing Physician: VICTORIANO BIRMINGHAM | | INDICATIONS H | | [place], SOB CONCLUSIONS 1. This was a technically difficult study with suboptimal | | views.2. Overall left ventricular systolic function is normal with, an EF between 65 - | | 70 %.3. There is mild concentric left ventricular hypertrophy. FINDINGS--------Study: | | This was a technically difficult study with suboptimal views.Left Ventricle: Overall | | left ventricular systolic function is normal with, an EF between 65 - 70 %.Left | | Ventricle: The left ventricle cavity size is normal.Left Ventricle: There is mild | | concentric left ventricular hypertrophy.Right Ventricle: The right ventricle is normal | | in size.Left Atrium: The left atrial size is normal.Right Atrium: The right atrial size | | is normal.Aortic Valve: The aortic valve was not well visualized.Aortic Valve: Aortic | | valve is trileaflet and is mildly thickened.Aortic Valve: There is mild aortic valve | | sclerosis without stenosis.Aortic Valve: The aortic valve is mildly calcified.Mitral | | Valve: The mitral valve is normal.Mitral Valve: Mild mitral regurgitation is | | present.Mitral Valve: Mild mitral annular calcification present.Tricuspid Valve: Trace | | tricuspid regurgitation present.Tricuspid Valve: There is no evidence of pulmonary | | hypertension.Pulmonic Valve: Trace pulmonic regurgitation.Pericardium: There is no | | pericardial effusion.IVC/Hepatic Veins: The IVC is normal size (1.5-2.5cm) and collapses | | >50% with sniff, consistent with central venous pressures of 5-10mmHg. | | MEASUREMENTS Party Plan Sales Agent: BAIRONuthenticated by: VICTORIANO BIRMINGHAM MDReptigre | | Date/Time: 03-27-2016 13:39:46 IMPRESSION: 1. This was a technically difficult study | | with suboptimal views.2. Overall left ventricular systolic function is normal with, an | | EF between 65 - 70 %.3. There is mild concentric left ventricular hypertrophy. | |Right Ventricle: The right ventricle is normal in size. | |Left Atrium: The left atrial size is normal. | |Right Atrium: The right atrial size is normal. | |Aortic Valve: The aortic valve was not well visualized. | |Aortic Valve: Aortic valve is trileaflet and is mildly thickened. | |Aortic Valve: There is mild aortic valve sclerosis without stenosis. | |Aortic Valve: The aortic valve is mildly calcified. | |Mitral Valve: The mitral valve is normal. | |Mitral Valve: Mild mitral regurgitation is present. | |Mitral Valve: Mild mitral annular calcification present. | |Tricuspid Valve: Trace tricuspid regurgitation present. | |Tricuspid Valve: There is no evidence of pulmonary hypertension. | |Pulmonic Valve: Trace pulmonic regurgitation. | |Pericardium: There is no pericardial effusion. | |IVC/Hepatic Veins: The IVC is normal size (1.5-2.5cm) and collapses >50% with sniff, consis tent with central venous pressures of 5-10mmHg. | | | |MEASUREMENTS | | | | | |Party Plan Sales Agent: | |Authenticated by: VICTORIANO BIRMINGHAM MD | |Report Date/Time: 03-27-2016 13:39:46 | | | |IMPRESSION: | |1. This was a technically difficult study with suboptimal views. | |2. Overall left ventricular systolic function is normal with, an EF between 65 - 70 %. | |3. There is mild concentric left ventricular hypertrophy. | + + documented in this encounter Visit Diagnoses Not on filedocumented in this encounter"
--- OUTSIDE RECORDS SUMMARY | ~2020-08-24 | XMS | Encounter Summary ---
Demographics + + + | Address | [address] | | | [place] [address] | + + + | Home Phone | | + + + | Preferred Language | Unknown | + + + | Marital Status | | + + + | Quaker Affiliation | 1077 | + + + | Race | White | + + + | Ethnic Group | Not or | + + + Author + + + | Author | [facility] | | | and [place] | + + + | Organization | [facility] | | [...] Providers + +------+ + | Care Career Center Director Name | Role | Phone | [...] + + | 10/06/ | Telephone | [facility] | Farrukh Acuna MD | Other | | 2019 | | NEPHROLOGY [place] | [address] [place] | | | | | [address] [place] | [address] [place], [place] | | | | | [address] [facility] [place] [place] [place] | [address] | | | | | [address] | | | | | | [phone] | | | +--------+ + + + [...] Encounter - Trinidad Simon Medical Assistant - 10/07/2019 10:15 AM PSTInfor med patients daughter of provider message. She verbalized understanding and had no further q uestions at this time. Electronically signed by Charlie Kraft Assistant at 05/2019 10:17 AM PSTTelephone Encounter - Trinidad Simon Medical Assistant - 11/07/201 9 10:07 AM PSTCalled [place] for clarification and [...] in a week.Electronically signed by Trinidad Simon Radiology Receptionist logan curtis 10/07/2019 10:17 AM PSTTelephone Encounter - Laureen [...] take medication. Please call them back at [phone]. Detailed message may be left on phone: Yes Last OV: 10/04/19 Next OV: 12/06/19 If this is a symptom based call and you were unable to immediately transfer the call to [facility] staff, was caller made aware that if at any timeshefeels it is an emergency they shoul d call 911 or go to the nearest emergency room? N/A Is cream maker needed: no documented in this enc ounter Plan of Treatment +--------+ + + + + | Date | Type | Specialty | Care Team | Description | +--------+ + + + + | 10/30/ | Virtual | Nephrology | Farrukh Acuna MD | | | 2019 | Office | | [address] [facility] | | | | Visit | | [address] [place], [place] | | | | | | [address] | | | | | | | | +--------+ + + + + documented as of this encounter Visit Diagnoses Not on filedocumented in this encounter"
--- OUTSIDE RECORDS SUMMARY | ~2020-08-24 | XMS | Encounter Summary ---
Demographics + + + | Address | [address] | | | [place] [address] | + + + | Home Phone [...] Providers + +------+ + | Care Metal Solderer Name | Role | Phone | + +------+ + | Rahul Silva MD | PCP | | + +------+ + Encounter Details +--------+ + + + + | Date | Type | Department | Care Team | Description | +--------+ + + + + | 02/24/ | Orders Only | [facility] | Conversion | | | 2016 | | NEPHROLOGY [place] | Transaction, | | | | | [address] | Provider Unknown | | | | | [address] [place] | | | | | | [address] | (Fax) | | | | | [phone] | | | +--------+ + + + [...] 2019 | Office | | [address] [facility] | | | | Visit | | [address] [facility] | | | | | | [address] | | | | | | | [...] - 1.030 | EXTERNAL | | | [place], | | | LAB | | | [...] + + + + | Non- | 3.97 (A) | 4.3 - 5.7 [...]
--- OUTSIDE RECORDS SUMMARY | ~2020-08-24 | XMS | Encounter Summary ---
Demographics + + + | Address | [address] | | | [place] [address] | + + + | Home Phone [...] Team Providers + +------+ + | Care Communication Manager Name | Role | Phone | + +------+ + | Rahul Silva MD | PCP | | + +------+ + Encounter Details +--------+ + + + + | Date | Type | Department | Care Team | Description | +--------+ + + + + | 02/15/ | Orders Only | [facility] | Conversion | | | 2019 | | NEPHROLOGY [place] | Transaction, | | | | | [address] | Provider Unknown | | | | | [address] [place] | | | | | | [address] | (Fax) | | | | | [phone] | | | +--------+ + + + [...] | | | Visit | | [facility] | | | | | | [address] | | | | | | | [...]
--- OUTSIDE RECORDS SUMMARY | ~2020-08-24 | XMS | Encounter Summary ---
Demographics + + + | Address | [address] | | | [place] [address] | + + + | Home Phone [...] + +------+ + | Care Professor Of Theater Name | Role | Phone | + +------+ + | Mehrdad Bergman | PCP | | + +------+ + Reason for Visit + +--------+ + | Reason | Onset | Comments | | | Date | | + +--------+ + | New Patient | 08/25/ | 08/26 appointment | | | 2019 | | + +--------+ + Encounter Details +--------+ + + + + | Date | Type | Department | Care Team | Description | +--------+ + + + + | 08/25/ | Telephone | [facility] | Brian Orosco MD | New Patient (08/26 | | 2019 | | VASCULAR SURGERY | [address] | appointment) | | | | [address] [place] | [place], [place] | | | | | [place], [place] | [address] | | | | | [address] | [phone] | | | | | [phone] | | | +--------+ + + + [...] this encounter Miscellaneous Notes Telephone Encounter - Megan Blackwell Ruling Machine Operator - 08/25/2019 2:08 PM PDTConfirmed appointment for tomorrow. Electronically signed by Megan N Ross, Ruling Machine Operator at 08/25 2:09 PM PDTTelephone Encounter - Jo AnnHarleen Damian - 08/25/2019 1:21 PM PDTCharlotte, is calling regarding New Patient (08/26 appointment) and would like a call back. Additional Call Details: Caller states that they were not aware of the arrival time being at 10:50. States they had scheduled with the transport company to arrive at 11:00. Is philip marcum to make sure that he will be okay to come at 11:00. Please call back to confirm, okay to l eave message. If this is a symptom based call, was patient offered triage? Not Applicable If this is a symptom based call and you were unable to immediately transfer the call to a damian munoz band scroll saw operator was caller made aware that if at [...] 2020 | Office | | [address] [facility] | | | | Visit | | [address] [place], [place] | | | | | | [address] | | | | | | | | +--------+ + + + + documented as of this encounter Visit Diagnoses Not on filedocumented in this encounter"
--- OUTSIDE RECORDS SUMMARY | ~2020-08-24 | XMS | Encounter Summary ---
Demographics + + + | Address | [address] | | | [place] [address] | + + + | Home Phone [...] Team Providers + +------+ + | Care Compress Machine Operator Name | Role | Phone [...] | [address] | [address] [facility] | | | | | [place], [place] | [address] [place], [place] | | | | | [address] | [address] | | | | | [phone] | | | +--------+ + + + [...] 2020 | Office | | [address] [facility] | | | | Visit | | [address] [place] | | | | | | [address] | | | | | | | [...]
--- OUTSIDE RECORDS SUMMARY | ~2020-08-24 | XMS | Encounter Summary ---
Demographics + + + | Address | [address] | | | [place] [address] | + + + | Home Phone [...] Team Providers + +------+ + | Care Terrazzo Laborer Name | Role | Phone | [...] | | | Closed left | Petey Luna MD | | | | | | hip | [address] | | | | | | fracture, | [place] | | | | | | initial | [place], [place] | | | | | | encounter | [id number] | | | | | | ([facility]) | Phone: | | | | | | Status post | [phone] | | | | | | above knee | Fax: | | | | | | amputation | [phone] | | | | | | of [...] | | | | | | | ([facility]) | | | | | | | | | | | | | | | | | +--------+--------+ + + + + Encounter Details +--------+ + + + + | Date | Type | Department | Care Team | Description | +--------+ + + + + | 08/03/ | Hospital | [facility] | Jose Andrade | Laceration of left | | 2016 - | Encounter | MED [facility] SUR[facility]ICAL | MD Mehrdad [address] | ear, initial | | | | [address] [place] | [address] [place] | encounter (Primary | | 08/05/ | | [place] [address] | [place] [address] | Dx); Closed left hip | | 2015 | | [phone] | [phone] | fracture, initial | | | | | | encounter ([facility]); | | | | | Linda Steiner, | Fall, initial | | | | | DO [address] | encounter; Acute | | | | | [address] [place], | pain; Hyperkalemia; | | | | | [place] [address] | CKD (chronic kidney | | | | | [phone] | disease), | | | | | [...] | | | | | | type ([facility]); Insulin | | | | | | dependent type 2 | | | | | | diabetes mellitus, | | | | | | uncontrolled (HCC); | | | | | | Intertrochanteric | | | | | | fracture of left | | | | | | hip, closed, initial | | | | | | encounter ([facility]); | | | | | | PAOLO on CPAP; Status | | | | | | post fall; Status | | | | | | 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 | | | | | | lower extremity | | | | | | ([facility]); Phantom limb | | | | | | pain ([facility]) | +--------+ + + + + [...] Bolivar MD - 08/05/2016 1:07 PM PDT LOCATED WITHIN [facility] DISCHARGE SUMMARY Pt. Name/Age/: Porfirio Zavala 76 [...] mg by mouth nightly. aka: LIPITOR Cholecalciferol 75336 units Caps Take 50,000 Units by mouth [...] information: [address] [place] [id number] PENDING RESULTS: HOSPITAL COURSE: Please refer to [...] signed by: Petey Bolivar MD, 08/05/2016 13:07 [facility] Portions of this chart may have been created with eTapestry voice recognition software. Occasi onal wrong-word or sound-alike substitutions may have occurred due to the inherent vanegas itations of voice recognition software. Please read the chart carefully and recognize, using context, where these substitutions have occurred documented in this encounter Discharge Instructions Instructions Maritza Devries RN - 08/05/2016Please call Dr. Tobar at [phone] for an y questions or concerns regarding [...] 0 | | | | (VITAMIN D-3) [address] | mouth Every 3 | | | [...] might be differ ent from the original. [facility] Hospitalist Progress Note Porfirio Zavala is a [...] Clear Clear PH UA 5.0 5.0-8.0 Specific [place] 1.015 1.001-1.030 PROTEIN UA 100 mg/dL (A) [...] as outlined above. Sonu Michel 08/04/2016 11:33 [facility] Yuriy Farrell RRT - 08/04/2016 [...] might be different f rom the original. LOCATED [facility]IN [facility] HISTORY & PHYSICAL Patient: Porfirio Zavala : 1940: Age: 76 y.o. MedRec: [id number] PCP: Hardik Coyne MD Admission date: 08/03/2016 Hospital day #: Physician author: Linda Steiner, DO Today: 08/03/2016 CHIEF COMPLAINT: Status post [...] phantom pain who was transferred here from [facility] emergency room with above presentation. Patient was accepted for transfer by Dr. Mondragon of ENT and Dr. Robison of orthopedic surgery as patient's daughter requested high level of care for plastic surgery consultation and repair of his left ear. According to estella antunez he was bending over to order picker something up while sitting in his wheelchair [...] much distress. Workup on blood work at [facility] showed mildly elevated potassium at 5.4, [...] of patient's ear laceration in the emergency elty mLedy I was asked by Dr. Robison [...] Charlotte Zavala, her contact numbers are: (h) [phone] & (c) [phone] ALLERGIES: No Known Allergies VITAL SIGNS: Temp: [...] CKTOTAL No results for input(s): PHART, PO2ART, QVC2ZAI, NJF0AXA, BEART, M4SRKOIV in the last 168 h ours. No results for input(s): SPECSOURCE, PHPOCB, HCO3, TCO2, BEART, BE, KPGR8TXO in the last 16 8 hours. Invalid input(s): YXTBG3BK, SZPG1KE (dot meylab) Xray Results: No results found. I reviewed imaging done at [facility]: CXR showed no acute disease. CT [...] EKG Results (I reviewed EKGs) 1st at [facility]: Sinus bradycardia, rate 59 bpm, otherwi se normal EKG. 2nd at [place]: Normal sinus rhythm, rate 78 bpm, otherwise [...] on 08/12, which can be done in [place] by Dr. Muhammad who has clinic there [...] signed by: Linda Steiner DO 08/03/2016 23:57 [facility] Dot phrase reference: VSHOSP (VS in table, last 24 hours) MEYLAB (various labs to pull in) DT (date and time) LABRCNTIP[K:3,Na:3 (last 3 sets of labs using potassium and sodium as examples) HGB HCT PLT INR GLU POCGLU Na K BUN CREA, CALCIUM TROPONINI BNP DIGOXIN Portions of this chart may have been created with eTapestry voice recognition software. Occasi onal wrong-word or sound-alike substitutions may have occurred due to the inherent vanegas itations of voice recognition software. Please read the chart carefully and recognize, using context, where these substitutions have occurred documented in this encounter Consult Notes Adonay Robison MD - 08/04/2016 10:15 AM PDT [place] [address] CONSULTATION ADONAY ROBISON MD Patient: PORFIRIO ZAVALA Admitting: LINDA STEINER MR #: [id number] LOC: PT TYPE: Adm Date: 08/03/2016 : 1940 DATE OF CONSULTATION AND DATE OF DICTATION: 08/04/2016 IDENTIFICATION: Porfirio Zavala is a 76-year-old male who resides with his daughter in the [facility]. CHIEF COMPLAINT: Fall off wheelchair with left [...] while at home, necessitating transfe r to [facility] in [place] for evaluation. He was found to have a left ear l aceration, a superficial skin tear on the left wrist and on CT scan was noted to have a no ndisplaced unicortical left hip intertrochanteric fracture. He also was found to have an e levated potassium of 5.6 and the decision was made to transfer the patient to [facility] in [place] for a more in depth evaluation and appropriate care, including re pair of the ear by ENT surgeon, Dr. Tobar. Consequently, the patient was transferred to [facility] to [facility] where indeed, Dr. Tobar came and repaired his ear laceration in the emergency room. [facility] and orthopedic consultation was requested. Today, the [...] could be obtained with an orthopedist in [place], or he may c ertainly come back to my office for this followup as well. I will follow the patient with you as needed. ADONAY ROBISON MD Dictated by ADONAY ROBISON MD 08/04/2016 10:15:13 Transcribed on 08/04/2016 10:52:[address] art# [id number] Confirmation #: [id number] cc: HARDIK COYNE MD donay Robison MD [...] might be differe nt from the original. [facility] Emergency Department Encounter Note [address] [place] [address] PCP:Hardik Coyne MD [phone] CHIEF COMPLAINT: Chief Complaint Patient presents with Head Injury Ear Laceration ED Room: ED14/ED14 HPI Porfirio Zavala is a 76 y.o. male who presents to the Emergency Department Patient presents as a referral from [facility]. He's been accepted by Dr. tobar of ENT and Dr. Robison of orthopedic surgery. He has a jyqzf-gmo-ncet amputation and fell out of his wheelchair earlier today. He struck his left hip and left side of his head against the ground. His family requested he be coker sferred to this hospital for plastic surgery consultation and repair of his left ear. I acc epted call from [facility] emergency department they confirmed the story dated imaging he has a left intercurrent trochanteric hip fracture as well as a negative CT scan of the head . He was noted to be mildly hyperkalemic at [facility]. On arrival he complains of left hip [...] were reviewed along with EMS notes and penitentiary record s if applicable. (See chart for details) Medications and Allergy list reviewed. Nurses note and old records were reviewed The patient was seen and examined, For persistent pain he receives IV narcotic pain medication morphine 3 doses. Imaging from [facility] reviewed no skull fracture or intracranial bleed [...] 2. Closed left hip fracture, initial encounter ([facility]) S72.002A 820.8 3. Fall, initial encounter W19.XXXA E888.9 4. Acute pain R52 338.19 5. Hyperkalemia E87.5 276.7 6. CKD (chronic kidney disease), unspecified stage N18.9 585.9 7. Intractable pain R52 780.96 Administrations This Visit albuterol 2.5 mg/3 mL nebulizer solution 5 mg Admin Date Action Dose Route Administered By 08/03/2016 Given 5 mg Nebulization Agustin Gordon, BUSINESS PROCESS LEAD bacitracin topical ointment Admin Date Action Dose [...] Given 4 mg Intravenous Jose Calhoun RN dtspemb-suldzsfhio-opjodnkpx pertussis (ADACEL, Tdap) vaccine injection 0.5 mL [...] i nstructions. lan of [place] Brie Bauer, BUSINESS PROCESS LEAD - 08/05/2016 12:55 PM PDTProblem: Patient Care [...] clear and diminished. Anticipate discharge. lan of [place] [facility] - Lyn Goldsmith, PT - 08/05/2016 12:10 [...] caprice pain who was transferred here from [facility] emergency room d/t ear laceration that [...] she will need to come back to [place] and order picker pt's old wheelchair that she is le [...] from multiple contributors. Transfers Bed-Chair, Level of [place]: contact guard assist Chair-Bed, Level of [place]: contact guard assist Lao-Pslma-Iyc, Assistive Device: none Impairments: strength decreased, impaired balance, pain Bed Mobility Supine to Sit, Level of [place]: independent Sit to Supine, Level of [place]: independent Wheelchair Mobility Pt able to demo safe and independent ability to self propel manual wheelchair in room and hallway. ROM B UEs and R LE grossly WFL; L LE not tested due to recent fracture. Strength B UEs and R LE grossly WFL; L LE not tested due to recent fracture. STG GOALS [place] Level: minimum assist (75% patient effort) Assistive Device: none Time to Achieve: 2 days Goal Status: met Transfer Training Goal, Activity Type: bed to chair /chair to bed [place] Level: minimum assist (75% patient effort) Assistive [...] S72.002A Closed left hip fracture, initial encounter ([facility]) W19.XXXA Fall, initial encounter R52 Acute pain E87.5 Hyperkalemia N18.9 CKD (chronic kidney disease), unspecified stage R52 Intractable pain E87.5 Acute hyperkalemia N18.3 Chronic kidney disease (CKD), stage 3 (moderate) J44.9 Chronic obstructive pulmonary disease, unspecified COPD type ([facility]) E11.65, Z79.4 Insulin dependent type 2 diabetes mellitus, uncontrolled ([facility]) S72.142A Intertrochanteric fracture of left hip, closed, initial encounter ([facility]) G47.33 PAOLO on CPAP Z91.89 Status post fall Z89.612 Status post above knee amputation of left lower extremity ([facility]) G54.7 Phantom limb pain ([facility]) Date of Onset: Past Medical History Diagnosis Date PAOLO (obstructive sleep apnea) On CPAP plus 4 L of oxygen at night COPD (chronic obstructive pulmonary disease) ([facility]) Diabetes mellitus, type II ([facility]) Constipation Epigastric pain Stump pain ([facility]) Renal insufficiency Obesity Iron deficiency anemia Hypertension Dyslipidemia Lower extremity embolism ([facility]) Phantom pain following amputation of lower limb ([facility]) Pain of amputation stump of left lower extremity ([facility]) Past Surgical History Procedure Laterality Date Amputation [...] phantom pain who was transferred here from [facility] emergency room d/t ear laceration that [...] Porfirio Zavala 3 times/wk until discharge from [facility] or discharged from the hospital. Occupational Therapy [...] prior to d/c home with home hea lt. Time to Achieve: by discharge Goal Status: [...] plan for care. Today's Treatment Start Time: 844 Stop time: 914 Time Calculation: 30 minutes Missed Treatment Time: [...] hip fx ad 08/03/16 Procedure: none steiner/ zane team Drains/ Lines: no Braces/ Collar Grade: [...] to f/u with Jonas next Friday in [place] to have sutures mello alexus. Skin tear/wound on L elbow wrapped in gauze, some dried drainage. Plan is to work with PT today to ensure pt can transfer safely to go home with dtr, and hopefully they can get i nsurance to cover a wheelchair that fits the pt better. VSS. lan of Care - Yuriy Mccoy RRT - 08/04/2016 6:45 [...] S72.002A Closed left hip fracture, initial encounter ([facility]) W19.XXXA Fall, initial encounter R52 Acute pain E87.5 Hyperkalemia N18.9 CKD (chronic kidney disease), unspecified stage R52 Intractable pain E87.5 Acute hyperkalemia N18.3 Chronic kidney disease (CKD), stage 3 (moderate) J44.9 Chronic obstructive pulmonary disease, unspecified COPD type ([facility]) E11.65, Z79.4 Insulin dependent type 2 diabetes mellitus, uncontrolled ([facility]) S72.142A Intertrochanteric fracture of left hip, closed, initial encounter ([facility]) G47.33 PAOLO on CPAP Z91.89 Status post fall Z89.612 Status post above knee amputation of left lower extremity ([facility]) G54.7 Phantom limb pain ([facility]) Date of Onset: Past Medical History Diagnosis Date PAOLO (obstructive sleep apnea) On CPAP plus 4 L of oxygen at night COPD (chronic obstructive pulmonary disease) ([facility]) Diabetes mellitus, type II ([facility]) Constipation Epigastric pain Stump pain (HCC) Renal [...] phantom pain who was transferred here from [facility] emergency room d/t ea r laceration [...] from multiple contributors. Transfers Bed-Chair, Level of [place]: minimum assist (75% patient effort), verbal cues required Chair-Bed, Level of [place]: minimum assist (75% patient effort), verbal cues required Imj-Qjzjs-Zkz, Assistive Device: none Impairments: strength decreased, impaired balance, pain ROM B UEs and R LE grossly WFL; L LE not tested due to recent fracture. Strength B UEs and R LE grossly WFL; L LE not tested due to recent fracture. STG GOALS [place] Level: minimum assist (75% patient effort) Assistive Device: none Time to Achieve: 2 days Goal Status: new Transfer Training Goal, Activity Type: bed to chair /chair to bed [place] Level: minimum assist (75% patient effort) Assistive [...] Anticipated days that therapy will be provided: 9/5/16 Physical Therapy Anticipated Discharge Needs: Ongoing PT [...] PT eval completed. Case d/w RN and case filler. Contacted wheelchair r ep (Petey) who says [...] and oxygen tank. lan of Care - A frida, POLI Valenzuela - 08/04/2016 2:17 PM PDTProblem: Discharge Planning Goal: Patient will be discharged in a safe manner Outcome: Unchanged Patient lives in [place], [place] with his daughter Charlotte. Charlotte states [...] This CM called [facility] in [place] and gave promotions executive producer , Argenis, the story about this patient. Argenis states that she is going to have their tech give me a call and see what they can do. Will attempt to get a standard w/c for patient. Faxed RX and clinicals to [facility]. Awaiting a call back. Also called [facility] CM for [facility] and left a voicemail asking to return my call. Daughter will be here mid morning to order picker patient. She states that if a manual w/c canno t be obtained, she will get one Friday at [facility] and "I will just be with him at all times in the w.c he has now until I can get one on Friday". Electronically sig sindy by: POLI Del Rosario 08/04/2016 14:15 Spoke with Argenis at [facility]. He will not qualify for a manual w/c as insurance luis a wolff covered a power w/c. She states [...] face sheet to be fa xed to [phone]. Faxed face sheet. Electronically signed by: POLI Del Rosario 2015 16:58 lan of C are - Ursula Betancourt RN - 08/04/2016 2:06 PM PDTSpoke with pt daughter Charlotte. She little l be here tomorrow around 11:00 to work with pt and take patient home. She will be bringing pt old javid wheelchair and oxygen tank. lan of Care - Fernando Locke OT - 08/04/2016 8:42 [...] Fernando Locke OT, 08/04/2016 8:41 lan of Care - Pic ventura-Sheri Armendariz RN - 08/04/2016 [...] hand, L elbow area, and L ear Amadou di lisseth procedure on ear tear, with sutures in place, which will need to be removed on 08/12 phylicia Muhammad in [place]. Pt is alert and oriented, forgetful at [...] Tobar MD - 08/03/2016 10:51 PM PDT [address] [address] OPERATIVE REPORT STEVEN TOBAR MD Patient: PORFIRIO ZAVALA Admitting: LINDA Salgado OBDULIA MR #: [id number] LOC: PT TYPE: Adm Date: 08/03/2016 : [...] also hurt the left hip, and in [place] the laceration was felt to be too complex to repair in the emergency room by the emergency room physician . Also, the patient with complaint of the left hip was noted to have an intertrochanteric fracture, but nondisplaced. The patient was accepted at [facility] fo r repair of the laceration and [...] the laceration, p art of it being yskgsqe-qda-otmqltg the root of the ear, was 5.5 [...] his could be carried out down in [place] with Dr. Muhammad to save a long trip up to this area a week from Friday when they should be removed. They can call our office and arrange ments will be made for removal of the sutures if not able to do it down in the Counts include 234 beds at the [facility]. The estimated blood loss from the current part was around 1-2 mL. The prognosis of th is area immediate and remote is good. STEVEN TOBAR MD Dictated by STEVEN TOBAR MD 08/03/2016 22:51:04 Transcribed on 08/04/2016 05:51:45 by blessing job# [id number] Confirmation #: [id number] cc: HARDIK COYNE MD D Triage Notes - Jose Calhoun RN - 08/03/2016 8:05 PM PDTPatient transferred [facility] [place] [facility] and ear laceration that needs to [...] 2019 | Office | | [address] [facility] | | | | Visit | | [address] [place], [place] | | | | | | [id number] | | | | | | | [...] until | | | | | encounter ([facility]) | 08/04/2016 | | | | | [...] | | | | | | encounter ([facility]) | | | | | | Status [...] [address] | [place] | [phone] | | [facility] | | [address] | | | - LABORATORY | | [...] + + + + | eGFR, | 37 (L)Comment: | >=60 | [facility] | | | non- | GLOMERULAR FILTRATION | mL/min/1.73m2 | [facility] | | | [place] | RATE,ESTIMATED | | MEDICAL | | | | mL/min/1.82a8Xhoe than | | CENTER - | | [...] [address] | [place] | [phone] | | [facility] | | [address] | | | - LABORATORY | | [...] | | | Cells | | | [facility] | | | [...] | Lymphocytes | | K/uL | [facility] | [...] | Eosinophils | | K/uL | [facility] | | | | | | MEDICAL | | | | | | CENTER - | | | | | | LABORATORY | | + + + + + + | Absolute | 0.10 | 0.00 - 0.10 | [facility] | | | Basophils | | K/uL | [facility] | [...] ST. | [address] | [place], [place] | [phone] | | [facility] | | [address] | | | - LABORATORY | | | | + + + + + Phosphorus (08/05/2016 6:44 AM PDT) + +-------+ + + + | Component | Value | Ref Range | Performed | Pathologist | | | | | At | Signature | + +-------+ + + + | Phosphorus | 4.2 | 2.5 - 4.6 mg/dL | [facility] | | | | [...] [address] | [place] | [phone] | | [facility] | | [address] | | | - LABORATORY | | [...] + | [facility] | [address] | [place] | [phone] | | [facility] | | [address] | | | - LABORATORY | | [...] [address] | [place] | [phone] | | [facility] | | [address] | | | - LABORATORY | | [...] | + + + + + | [facility] | [address] | [place] | [phone] | | [facility] | | [address] | | | - LABORATORY | | [...] + | [facility] | [address] | [place] | [phone] | | [facility] | | [address] | | | - LABORATORY | | [...] [address] | [place] | [phone] | | [facility] | | [address] | | | - LABORATORY | | [...] + | [facility] | [address] | [place] | [phone] | | [facility] | | [address] | | | - LABORATORY | | [...] | | Eosinophils | | | [facility] | | [...] | Neutrophils | | K/uL | [facility] | | | | | | MEDICAL | | | | | | CENTER - | | | | | | LABORATORY | | + + + + + + | Absolute | 1.10 | 0.60 - 3.20 | [facility] | | | Lymphocytes | | K/uL | [facility] | [...] + | [facility] | [address] | [place], [place] | [phone] | | [facility] | | [address] | | | - LABORATORY | | [...] | | | | mmol/L | [facility] | | | | [...] + + + + | eGFR, | 31 (L)Comment: | >=60 | [facility] | | | non- | GLOMERULAR FILTRATION | mL/min/1.73m2 | [facility] | | | [place] | RATE,ESTIMATED | | MEDICAL | | | | mL/min/1.66o0Qpvm than | | CENTER - | | [...] | | | | | mg/dL | [facility] | | | | | | MEDICAL | | | | | | CENTER - | | | | | | LABORATORY | | + + + + + + | BUN/Creatin | 18.7 | | [facility] | | | ine Ratio | | | [facility] | | [...] [address] | [place] | [phone] | | [facility] | | [address] | | | - LABORATORY | | [...] - 1.030 | [facility] | | | [place], | | | [facility] | | [...] | Comment | Indicated | | [facility] | | | [...] [address] | [place] | [phone] | | [facility] | | [address] | | | - LABORATORY | | [...] | | | | AYAH RON MD ([id number]) | | | | | | on [...] | Lymphocytes | | K/uL | [facility] | [...] | Eosinophils | | K/uL | [facility] | | | | | | MEDICAL | | | | | | CENTER - | | | | | | LABORATORY | | + + + + + + | Absolute | 0.10 | 0.00 - 0.10 | [facility] | | | Basophils | | K/uL | [facility] | [...] + | [facility] | [address] | [place] | [phone] | | [facility] | | [address] | | | - LABORATORY | | | | + + + + + Extra Blue Top Tube (08/03/2016 9:07 PM PDT) + +-------+ + + + | Component | Value | Ref Range | Performed | Pathologist | | | | | At | Signature | + +-------+ + + + | Extra Blue | Done | | [facility] | | | Top Tube | | | [facility] | | [...] [address] | [place] | [phone] | | [facility] | | [address] | | | - LABORATORY | | [...] [address] | [place] | [phone] | | [facility] | | [address] | | | - LABORATORY | | [...] | | Lavender | | | [facility] | | | Top Tube | | [...] + | [facility] | [address] | [place] | [phone] | | [facility] | | [address] | | | - LABORATORY | | [...] | | Top Tube | | | [facility] | | [...] [address] | [place] | [phone] | | [facility] | | [address] | | | - LABORATORY | | [...] 2.03 (H) | 0.60 - 1.30 | [facility] | | | | | mg/dL | . [facility] | | | | | | MEDICAL | | | | | | CENTER - | | | | | | LABORATORY | | + + + + + + | eGFR, | 32 (L)Comment: | >=60 | [facility] | | | non- | GLOMERULAR FILTRATION | mL/min/1.73m2 | [facility] | | | [place] | RATE,ESTIMATED | | MEDICAL | | | | mL/min/1.30d5Venr than | | CENTER - | | [...] + | [facility] | [address] | [place] | [phone] | | [facility] | | [address] | | | - LABORATORY | | [...] | | | | | | | 7668-4551 Use NIGHT DOSE for | | | | | | | doses scheduled: HS, 3AM, | | | | | | | Nighttime [id number], | | | | | | + [...] | +---+---+ + +-------+ +---------+---+ + | [id number] | Given | 08/03/20 | 0.5 mLs [...]
--- OUTSIDE RECORDS SUMMARY | ~2020-08-24 | XMS | Encounter Summary ---
Demographics + + + | Address | [address] | | | [place] [address] | + + + | Home Phone [...] | [facility] | | | [...] Team Providers + +------+ + | Care Immunohematologist Name | Role | Phone | + +------+ + | Rahul Silva MD | PCP | | + +------+ + Encounter Details +--------+ + + + + | Date | Type | Department | Care Team | Description | +--------+ + + + + | 09/10/ | Ancillary | [facility] | Brian Orosco MD | Canceled (OTHER) | | 2019 | Procedure | [facility] | [address] | | | | | OPER[address] | [place], [place] | | | | | [place] | [address] | | | | | [place], [place] | [phone] | | | | | [address] | | | | | | [phone] | | | +--------+ + + + [...] [place] | | | | | | [address] | | | | | | | | +--------+ + + + + documented as of this encounter Visit Diagnoses Not on filedocumented in this encounter"
--- OUTSIDE RECORDS SUMMARY | ~2020-08-24 | XMS | Encounter Summary ---
Demographics + + + | Address | [address] | | | [place] [address] | + + + | Home Phone | | + + + | Preferred Language | Unknown | + + + | Marital Status | Single | + + + | Jainism Affiliation | PRO | + + + [...] [place] | | | | | [address] | | + + + + + Care Team Providers + +------+ + | Care Data Center Solutions Architect Name | Role | Phone | + +------+ + PCP | Unavailable | + +------+ + Encounter Details +--------+ + + + + | Date | Type | Department | Care Team | Description | +--------+ + + + + | 02/26/ | Results | | Other, Faculty | | | 1993 | Only | | [phone] | | +--------+ + + + + [...] | | + +---------+ + + | [facility] DEPARTMENT OF | | | | | RADIOLOGY | | | | + +---------+ + + documented in this encounter Visit Diagnoses Not on filedocumented in this encounter"
--- OUTSIDE RECORDS SUMMARY | ~2020-08-24 | XMS | Encounter Summary ---
Demographics + + + | Address | [address] | | | [place] [address] | + + + | Home Phone [...] Team Providers + +------+ + | Care Railroad Dispatcher Name | Role | Phone | + +------+ + | Rahul Silva MD | PCP | | + +------+ + Encounter Details +--------+ + + + + | Date | Type | Department | Care Team | Description | +--------+ + + + + | 06/12/ | Orders Only | [facility] | Farrukh Acuna MD | | | 2017 | | NEPHROLOGY [place] | [address] [place] | | | | | [address] [place] | [address] [place], [place] | | | | | [address] [place], [place] | [address] | | | | | [address] | | | | | | [phone] | | | +--------+ + + + [...] 2020 | Office | | [address] [facility] | | | | Visit | | [address] [place], [place] | | | | | | [address] | | | | | | | [...]
--- OUTSIDE RECORDS SUMMARY | ~2020-08-24 | XMS | Encounter Summary ---
Demographics + + + | Address | [address] | | | [place] [address] | + + + | Home Phone [...] Team Providers + +------+ + | Care Cellophane Bath Mixer Name | Role | Phone | [...] | | | [address] | [place] [address] | | | | | [place] [address] | | | | | | [phone] | | | +--------+ + + + [...] 2019 | Office | | [address] [facility] | | | | Visit | | [address] [place] | | | | | | [address] | | | | | | | [...]
--- OUTSIDE RECORDS SUMMARY | ~2020-08-24 | XMS | Encounter Summary ---
Demographics + + + | Address | [address] | | | [place] [address] | + + + | Home Phone [...] [place] | | | | | [address] | | + + + + + Care Team Providers + +------+ + | Care Raise Driller Name | Role | Phone | + [...] as of this encounter Progress Notes Interface, Hotel Dining Room Cashier In - 11/10/2006 2:27 AM PSTCLINIC DATE: [...] he embarked on this. Galo Arora M.D. Supervisor Refractory Products, Plastic and Reconstructive Surgery / [id number] / [id number] / 700 cc: Nelson Melara M.D. Anesthesiology. [facility]. [id number] signed by Interface, Hotel Dining Room Cashier In at 11/10/2006 2:27 AM PSTdocume nted in this encounter Plan of Treatment Not on filedocumented as of this encounter Visit Diagnoses Not on filedocumented in this encounter"
--- OUTSIDE RECORDS SUMMARY | ~2020-08-24 | XMS | Encounter Summary ---
Demographics + + + | Address | [address] | | | [place] [address] | + + + | Home Phone [...] + + + | Author | [facility] | + + + | Organization | [facility] | + + + | Address | Unknown | + + + | Phone | Unavailable | + + + Support + + + + + | Name | Relationship | Address | Phone | + + + + + | Darci Andujar | VALERIE | [place] | | | | | [address] | | + + + + + Care Team Providers + +------+ + | Care Car Dryer Name | Role | Phone | + [...] [id number] | | | | | | [place], [place] | | | | | | [address] | | | | | | [phone] | | | +--------+ + + + [...] + + + + + | [facility] | [address] | [place] [address] | | | PATHOLOGY | [address] [...] + + + + + | [facility] | [address] | [place] [address] | | | PATHOLOGY | [address] [...] | + + + + + | [facility] DEPARTMENT OF | [address] | [place] [address] | | | PATHOLOGY | [address] [...] + + + + + | [facility] | [address] | [place] [address] | | | PATHOLOGY | [address] | | | + + + + + documented in this encounter Visit Diagnoses Not on filedocumented in this encounter
--- OUTSIDE RECORDS SUMMARY | ~2020-08-24 | XMS | Encounter Summary ---
Demographics + + + | Address | [address] | | | [place] [address] | + + + | Home Phone [...] Team Providers + +------+ + | Care Submersible Pilot Name | Role | Phone | + [...] + + | 03/14/ | Refill | [facility] | Farrukh Acuna MD | Medication Refill | | 2019 | | NEPHROLOGY [place] | [address] [place] | | | | | [address] | [address] [place], [place] | | | | | [address] | [address] | | | | | [place], [place] | | | | | | [address] | | | | | | [phone] | | | +--------+--------+ + + + [...] encounter Miscellaneous Notes Telephone Encounter - Sandy Capellan RN - 03/16/2020 11:05 AM PDTReceived fax [facility] [place] [facility] for Torsemide. Torsemide prescription sent on 03/14 . Called [facility] to confirm they received electronic prescription. They received prescriptio n but were unable to fill it as it is too soon to fill. Their records show it was filled on 03/14. Appears that prescription was sent to both [facility] and [facility]. Called patient's daughter, Charlotte, and she reports they did roller picker prescription for Torsem luly at [facility] pharmacy. His primary pharmacy is [facility] and he was only getting the Torse mide at [facility] because [facility] was out of Torsemide. She asked that [facility] pharmacy be re moved from preferred pharmacy list. No further questions at this time. documented in this encounter Plan of Treatment +--------+ + + + + | Date | Type | Specialty | Care Team | Description | +--------+ + + + + | 10/30/ | Virtual | Nephrology | Farrukh Acuna MD | | 2019 | Office | | [address] [facility] | | | | Visit | | [address] [place], [place] | | | | | | [address] | | | | | | | | +--------+ + + + + documented as of this encounter Visit Diagnoses + + | Diagnosis | + + | Essential hypertension Unspecified essential hypertension | + + | Persistent proteinuria Proteinuria | + + | CKD (chronic kidney disease) stage 5, GFR less than 15 ml/min (HCC) Chronic kidney | | disease, Stage V | + + documented in this encounter"
--- OUTSIDE RECORDS SUMMARY | ~2020-08-24 | XMS | Encounter Summary ---
Demographics + + + | Address | [address] | | | [place] [address] | + + + | Home Phone [...] Providers + +------+ + | Care Stone And Plate Preparer Apprentice Name | Role | Phone | [...] + + | 07/21/ | Documentati | [facility] | Simon, | Results (07/19/19) | | 2019 | on | NEPHROLOGY [place] | [facility] | | | | | [address] [place] | Rn Care Manager | | | | | [address] [facility] [place] | | | | | | [address] | | | | | | [phone] | | | +--------+ + + + [...] 2020 | Office | | [address] [facility] | | | | Visit | | [address] [place] | | | | | | [address] | | | | | | | [...]
--- OUTSIDE RECORDS SUMMARY | ~2020-08-24 | XMS | Encounter Summary ---
Demographics + + + | Address | [address] | | | [place] [address] | + + + | Home Phone [...] Providers + +------+ + | Care Communications Associate Name | Role | Phone | + +------+ + | Rahul Silva MD | PCP | | + +------+ + Encounter Details +--------+ + + + + | Date | Type | Department | Care Team | Description | +--------+ + + + + | 07/17/ | Orders Only | [facility] | Conversion | | | 2016 | | NEPHROLOGY [place] | Transaction, | | | | | [address] | Provider Unknown | | | | | [address] [place] | | | | | | [address] | (Fax) | | | | | [phone] | | | +--------+ + + + [...] | | | Visit | | [facility] | | | | | | [address] | | | | | | | | +--------+ + + + + documented as of this encounter Procedures + +--------+ + + + | Procedure Name | Priori | Date/Time | Associated Diagnosis | Comments | | | ty | | | | + +--------+ + + + | BASIC METABOLIC | Routin | 07/17/2017 | | Results for this | | PANEL | e | 4:00 PM | | procedure are in the | | | | PDT | | results section. | + +--------+ + + + documented in this encounter Results Basic Metabolic Panel (07/17/2017 4:00 PM PDT) + + + + [...] + + + + | BUN | 32 (A) | 6 - 23 mg/dL | EXTERNAL | | | | | | LAB | | + + + + + + | Creatinine | 1.96 (A) | 0.70 - 1.18 | EXTERNAL | | | | | mg/dL | LAB | | + + + + + + | BUN/Creatin | 16.3 | 6.0 - 28.6 | EXTERNAL | [...]
--- OUTSIDE RECORDS SUMMARY | ~2020-08-24 | XMS | Encounter Summary ---
Demographics + + + | Address | [address] | | | [place] [address] | + + + | Home Phone | | + + + | Preferred Language | Unknown | + + + | Marital Status | | + + + | Holiness Affiliation | 1077 | + + + [...] Team Providers + +------+ + | Care Grain Thresher Name | Role | Phone | + [...] | [address] | [place] [address] | | | | | [place] [address] | | | | | | [phone] | | | +--------+ + + + [...] 2020 | Office | | [address] [facility] | | | | Visit | | [address] [facility] [place] | | | | | | [address] | | | | | | | [...]
--- OUTSIDE RECORDS SUMMARY | ~2020-08-24 | XMS | Encounter Summary ---
Demographics + + + | Address | [address] | | | [place] [address] | + + + | Home Phone [...] Phone | + + +---------+ + | Chralotte Andujar | ECON | Unknown | | + + +---------+ + Care Team Providers + +------+ + | Care Sheet Metal Helper Name | Role | Phone | [...] [address] | | | | | [place], [place] | [place], [place] | | | | | [address] | [address] | | | | | [phone] | [phone] | | | | | | | [...] 2020 | Office | | [address] [facility] | | | | Visit | | [address] [place] | | | | | | [address] | | | | | | | [...] + + | Attending/Visit Provider: , TAE WATKNIS, LEONORA, , , , , EH, | [...]
--- OUTSIDE RECORDS SUMMARY | ~2020-08-24 | XMS | Encounter Summary ---
Demographics + + + | Address | [address] | | | [place] [address] | + + + | Home Phone [...] Team Providers + +------+ + | Care Steam Fitter Supervisor Maintenance Name | Role | Phone | + +------+ + | Mehrdad Bergman | PCP | | + +------+ + Reason for Visit +--------+ + | Reason | Comments | +--------+ + | Other | IV tyrone order sent to [facility] confirmation received | +--------+ + Encounter Details +--------+ + + + + | Date | Type | Department | Care Team | Description | +--------+ + + + + | 03/29/ | Documentati | [facility] | Alfred, | Other (IV fercesilia | | 2020 | on | NEPHROLOGY [place] | Charlie Abdi | order sent to [facility] | | | | [address] | Lithographic Retoucher Apprentice | IVT confirmation | | | | [address] | | received) | | | | [place], [place] | | | | | | [address] | | | | | | [phone] | | | +--------+ + + + [...] 2019 | Office | | [address] [facility] | | | | Visit | | [address] [place], [place] | | | | | | [address] | | | | | | | | +--------+ + + + + documented as of this encounter Visit Diagnoses Not on filedocumented in this encounter"
--- OUTSIDE RECORDS SUMMARY | ~2020-08-24 | XMS | Encounter Summary ---
Demographics + + + | Address | [address] | | | [place] [address] | + + + | Home Phone [...] Team Providers + +------+ + | Care Student Life Coordinator Name | Role | Phone | [...] + + | 10/04/ | Documentati | [facility] | Simon, | Results (09/30/19) | | 2019 | on | NEPHROLOGY [place] | [facility] | | | | | [address] | [place] | | | | | [address] | | | | | | [place] | | | | | | [address] | | | | | | [phone] | | | +--------+ + + + [...] | | [address] [facility] | | | | Visit | | [address] [place], [place] | | | | | | [address] | | | | | | | [...] + + + | Red Blood | 2.93 (A) | 4.30 - 5.70 [...]
--- OUTSIDE RECORDS SUMMARY | ~2020-08-24 | XMS | Encounter Summary ---
Demographics + + + | Address | [address] | | | [place] [address] | + + + | Home Phone [...] Team Providers + +------+ + | Care Bar Host/Hostess Name | Role | Phone | + +------+ + | Mehrdad Bergman | PCP | | + +------+ + Encounter Details +--------+ + + + + | Date | Type | Department | Care Team | Description | +--------+ + + + + | 06/05/ | Virtual | [facility] | Farrukh Acuna MD | CKD (chronic kidney | | 2019 | Office | NEPHROLOGY [place] | [address] [place] | disease) stage 5, | | | Visit | [address] | [address] [place], [place] | GFR less than 15 | | | | [address] | [address] | ml/min (HCC) | | | | [place], [place] | | (Primary Dx); Anemia | | | | [address] | | of chronic kidney | | | | [phone] | | failure, stage 5 | | | | | | ([facility]); Persistent | | | | | | proteinuria; | | | | | | Essential | | | | | | hypertension; Iron | | | | | | deficiency; | | | | | | Secondary | | | | | | hyperparathyroidism | | | | | | ([facility]); 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 I see no need to send him [...] 03/01/19. He was in the ED at [facility] in late 05/2020 with CP & [...] 10/2016 with severe pneumonia, severe ZEKE; needed FASHION CONSULTANT SALES for ~5 weeks b efore renal function recovery mid 12/2016. He was admitted to [facility] for 3 nights in July 2016 [...] 05/29/2020 LABPROT 4,403.2 (A) 05/29/2020 Assessment: Mr. Adnujar is a 79 y.o. male patient with stage V CKD on a background of diabetes & hyperte nsion and ZEKE's (hospitalization for C-diff and dehydration). The most likely pathology here is that of diabetic nephropathy +/- hypertensive nephrosclerosis/arteriolosclerosis. He was hospitalized in 10/2016 with severe pneumonia, severe ZEKE; needed FASHION CONSULTANT SALES for ~5 weeks b efore renal function [...] Also: I see no need for acute FASHION CONSULTANT SALES. I see no need to send him [...] or concerns. Truly yours, Farrukh Acuna MD [facility], [facility] This exam was initially conducted via a secure 256-bit AES encrypted bidirectional video se ssion. You have chosen to receive care through the use of telemedicine. Telemedicine enables [facility] care providers at different locations [...] 2019 | Office | | [address] [facility] | | | | Visit | | [address] [place], [place] | | | | | | [address] | | | | | | | | +--------+ + + + + documented as of this encounter Visit Diagnoses + + | Diagnosis | + + | CKD (chronic kidney disease) stage 5, GFR less than 15 ml/min ([facility]) - Primary Chronic | | kidney disease, [...]
--- OUTSIDE RECORDS SUMMARY | ~2020-08-24 | XMS | Encounter Summary ---
Demographics + + + | Address | [address] | | | [place] [address] | + + + | Home Phone [...] Providers + +------+ + | Care Special Order Jeweler Name | Role | Phone | + +------+ + | Rahul Silva MD | PCP | | + +------+ + Encounter Details +--------+ + + + + | Date | Type | Department | Care Team | Description | +--------+ + + + + | 10/03/ | Orders Only | [facility] | Conversion | | | 2015 | | [facility] | Transaction, | | | | | [address] | Provider Unknown | | | | | [address] [place], [place] | [phone] | | | | | [address] | (Fax) | | | | | [phone] | | | +--------+ + + + [...] [place] | | | | | | [address] | | | | | | | [...] | | | LAB | | | Tristanian | | | | | + + [...]
--- OUTSIDE RECORDS SUMMARY | ~2020-08-24 | XMS | Encounter Summary ---
Demographics + + + | Address | [address] | | | [place] [address] | + + + | Home Phone [...] + + + | Author | [facility] | | | and [place] | + + + | Organization | [facility] | | [...] Team Providers + +------+ + | Care Gear Repair Supervisor Name | Role | Phone | + +------+ + | Rahul Silva MD | PCP | | + +------+ + Encounter Details +--------+ + + + + | Date | Type | Department | Care Team | Description | +--------+ + + + + | 11/27/ | Orders Only | [facility] | Conversion | | | 2017 | | NEPHROLOGY [place] | Transaction, | | | | | [address] | Provider Unknown | | | | | [address] [place] | | | | | | [address] | (Fax) | | | | | [phone] | | | +--------+ + + + [...] 2019 | Office | | [address] [facility] | | | | Visit | | [address] [facility] | | | | | | [address] | | | | | | | [...] + + + + | Non- | 3.53 (A) | 4.3 - 5.7 [...] | | | LAB | | | [place] | | | | | + + [...]
--- OUTSIDE RECORDS SUMMARY | ~2020-08-24 | XMS | Encounter Summary ---
Demographics + + + | Address | [address] | | | [place] [address] | + + + | Home Phone [...] Providers + +------+ + | Care Design Engineer Products Name | Role | Phone | + +------+ + | Rahul Silva MD | PCP | | + +------+ + Encounter Details +--------+---------+ + + + | Date | Type | Department | Care Team | Description | +--------+---------+ + + + | 10/04/ | Office | [facility] | Farrukh Acuna MD | CKD (chronic kidney | | 2019 | Visit | NEPHROLOGY [place] | [address] [place] | disease) stage 5, | | | | [address] | [address] [place], [place] | GFR less than 15 | | | | [address] | [address] | ml/min (HCC) | | | | [place], [place] | | (Primary Dx); Anemia | | | | [address] | | of chronic kidney | | | | [phone] | | failure, stage 5 | | [...] 10/2016 with severe pneumonia, severe ZEKE; needed EXECUTIVE ASSISTANT for ~5 weeks b efore renal function recovery mid 12/2016. [facility] in July 2016 [...] 19.5 (A) 05/27/2019 LABPROT 2,445.6 (A) 03/01/2019 [id number] 10/08/2018 Assessment: Mr. Andujar is a 78 y.o. male patient with stage IV CKD on a background of diabetes & hypert ension and recent hospitalization for C-diff and hehydration. The most likely pathology here is that of diabetic nephropathy +/- hypertensive nephrosclerosis/arteriolosclerosis. He was hospitalized in 10/2016 with severe pneumonia, severe ZEKE; needed EXECUTIVE ASSISTANT for ~5 weeks b efore renal [...] Also: I see no need for acute EXECUTIVE ASSISTANT. I see no need to send [...] concerns. Truly yours, Farrukh Acuna MD FACP, FAS, FAFARHAT documented in this enco unter Plan of Treatment +--------+ + + + + | Date | Type | Specialty | Care Team | Description | +--------+ + + + + | 10/30/ | Virtual | Nephrology | Farrukh Acuna MD | | | 2019 | Office | | [address] [facility] | | | | Visit | | [address] [place], [place] | | | | | | [address] | | | | | | | | +--------+ + + + + documented as of this encounter Visit Diagnoses + + | Diagnosis | + + | CKD (chronic kidney disease) stage 5, GFR less than 15 ml/min ([facility]) - Primary Chronic | | [...]
--- OUTSIDE RECORDS SUMMARY | ~2020-08-24 | XMS | Encounter Summary ---
Demographics + + + | Address | [address] | | | [place] [address] | + + + | Home Phone [...] Team Providers + +------+ + | Care Drycleaner Name | Role | Phone | + [...] | Transaction, | | | | | [place], [place] | Provider Unknown | | | | | [address] | [phone] | | | | | [phone] | | | +--------+ + + + [...] | | | Visit | | [address] [place], [place] | | | | | | [address] | | | | | | | [...]
--- OUTSIDE RECORDS SUMMARY | ~2020-08-24 | XMS | Encounter Summary ---
Demographics + + + | Address | [address] | | | [place] [address] | + + + | Home Phone [...] [place] | | | | | [address] | | + + + + + Care Team Providers + +------+ + | Care Home Office Claim Specialist Name | Role | Phone | [...] Vyas | | | | | | [address] | | | | | | [place], [place] | | | | | | [address] | | | | | | [phone] | | | +--------+ + + + [...] as of this encounter Progress Notes Interface, Trapper Animal In - 02/14/2007 3:[address] [facility] and [address] [address] or September 09, 1996 Nestor VALLES MD [address] [place] [address] RE: PORFIRIO ZAVALA MR#: [id number] Valles: Your patient, Porfirio Zavala, was seen for follow up today in the Neurosurgery Clinic at [facility]. 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 Following our initial evaluation, we recommended [...] Fellow, Neurosurgery Alina Moise M.D. Professor and Novelty Twister Operator, Division of Neurosurgery Mala documented in this encounter Plan of Treatment Not on filedocumented as of this encounter Visit Diagnoses Not on filedocumented in this encounter"
--- OUTSIDE RECORDS SUMMARY | ~2020-08-24 | XMS | Encounter Summary ---
Demographics + + + | Address | [address] | | | [place] [address] | + + + | Home Phone [...] Team Providers + +------+ + | Care Planting Machine Operator Name | Role | Phone | + +------+ + | Rahul Silva MD | PCP | | + +------+ + Encounter Details +--------+ + + + + | Date | Type | Department | Care Team | Description | +--------+ + + + + | 12/16/ | Orders Only | [facility] | Conversion | | | 2016 | | NEPHROLOGY [place] | Transaction, | | | | | [address] | Provider Unknown | | | | | [address] [place] | | | | | | [address] | (Fax) | | | | | [phone] | | | +--------+ + + + [...] | | | Visit | | [facility] | | | | | | [address] | | | | | | | [...]
--- OUTSIDE RECORDS SUMMARY | ~2020-08-24 | XMS | Encounter Summary ---
Demographics + + + | Address | [address] | | | [place] [address] | + + + | Home Phone [...] Team Providers + +------+ + | Care Trust Mail Clerk Name | Role | Phone | + +------+ + | Rahul Silva MD | PCP | | + +------+ + Encounter Details +--------+ + + + + | Date | Type | Department | Care Team | Description | +--------+ + + + + | 12/19/ | Orders Only | [facility] | Conversion | | | 2016 | | NEPHROLOGY [place] | Transaction, | | | | | [address] | Provider Unknown | | | | | [address] [place] | | | | | | [address] | (Fax) | | | | | [phone] | | | +--------+ + + + [...] 2019 | Office | | [address] [facility] | | | | Visit | | [address] [facility] | | | | | | [address] | | | | | | | [...]
--- OUTSIDE RECORDS SUMMARY | ~2020-08-24 | XMS | Encounter Summary ---
Demographics + + + | Address | [address] | | | [place] [address] | + + + | Home Phone [...] Team Providers + +------+ + | Care Veterans' Coordinator Name | Role | Phone | [...] + + | 08/26/ | Office | [facility] | Trisha Conner DNP | CKD (chronic kidney | | 2019 | Visit | VASCULAR SURGERY | [address] | disease) stage 5, | | | | [address] [place] | [place], [place] | GFR less than 15 | | | | [place], [place] | [address] | ml/min (HCC) | | | | [address] | | (Primary Dx) | | | | [phone] | Brian Orosco MD | | | | | | [address] | | | | | | [place], [place] | | | | | | [address] | | | | | | [phone] | | | | | | | [...] +---------+ + + | Blood Pressure | 146/66 | 08/26/2019 10:39 AM | | | | | PDT | | + +---------+ + + | Pulse | 62 | 08/26/2019 10:39 AM | | | | | PDT | | + +---------+ + + | Temperature | - | - | | + +---------+ + + | Respiratory Rate | - | - | | + +---------+ + + | Oxygen Saturation | 93% | 08/26/2019 10:39 AM | | | | | PDT | | + +---------+ + + | [...] documented in this encounter Progress Notes Brian Orosco MD - 08/26/2019 11:00 AM PDT Subjective Subjective Mr. Andujar [...] CV: No peripheral edema, rate regular SKIN: [place], warm, dry without rash/lesion MS: ROM not [...] Yanes ([place]). Information dex rded by the scribe has been reviewed and validated by me. I agree with its contents. Signed by: Eden Painter 08/26/19, 10:49 Brian Orosco MD documented in this encounter H&P Notes Brian Orosco MD - 08/26/2019 11:00 AM PDT Subjective Subjective Mr. Andujar [...] CV: No peripheral edema, rate regular SKIN: [place], warm, dry without rash/lesion MS: ROM not [...] Yanes ([place]). Information dex rded by the eden has been reviewed and validated by me. I agree with its contents. Signed by: Eden Painter 08/26/19, 10:49 Brian Orosco MD documented in this encount er Plan of Treatment +--------+ + + + + | Date | Type | Specialty | Care Team | Description | +--------+ + + + + | 10/30/ | Virtual | Nephrology | Farrukh Acuna MD | | | 2020 | Office | | [address] [facility] | | | | Visit | | [address] [facility] | | | | | | [address] | | | | | | | | +--------+ + + + + + +------+--------+ + + | Name | Type | Priori | Associated Diagnoses | Order Schedule | | | | ty | | | + +------+--------+ + + | Basic Metabolic | Lab | Routin | CKD (chronic | 1 Occurrences | | Panel | | e | kidney disease) | starting 08/26/2019 | | | | | stage 5, GFR less | until 08/26/2020 | | | | | than 15 ml/min ([facility]) | | + +------+--------+ + + | CBC no Differential | Lab | Routin | CKD (chronic | 1 Occurrences | | | | e | kidney disease) | starting 08/26/2019 | | | | | stage 5, GFR less | until 08/26/2020 | | | | | than 15 ml/min ([facility]) | | + +------+--------+ + + documented as of this encounter Visit Diagnoses + + | Diagnosis | + + | CKD (chronic kidney disease) stage 5, GFR less than 15 ml/min ([facility]) - Primary Chronic | | kidney disease, Stage V | + + documented in this encounter"
--- OUTSIDE RECORDS SUMMARY | ~2020-08-24 | XMS | Encounter Summary ---
Demographics + + + | Address | [address] | | | [place] [address] | + + + | Home Phone [...] [place] | | | | | [address] | | + + + + + Care Team Providers + +------+ + | Care Building Analyst/Supervisor Name | Role | Phone | + +------+ + PCP | Unavailable | + +------+ + Encounter Details +--------+ + + + + | Date | Type | Department | Care Team | Description | +--------+ + + + + | 03/30/ | Results | | Other, Faculty | | | 1992 | Only | | [phone] | | +--------+ + + + + [...] + | CT PELVIS | Radiologist 1: REGLA, | | | | | WO CONTRAST | Edin RENNER, | | | | | | M.DLedy-Radiologist 2: | | | | | | Edin ARAUZ, | | | | | | MPORFIRIO [...] RENNER | | | | | | M.Edin-Radiologist 2: | | | | | | [...] | | + +---------+ + + | [facility] DEPARTMENT OF | | | | | RADIOLOGY | | | | + +---------+ + + CHEST 2 VIEW (04/09/1993 1:45 PM PDT) + + + + + + | Component | Value | Ref Range | Performed | Pathologist | | | | | At | Signature | + + + + + + | CHEST, 2 | Radiologist 1: EMILY, | | | | | [place]AN [place] | KYLER | | | | | KALEN | M.D.-Radiologist 2: | | | | | | BRET JOLLEY, | | | | | | PORFIRIO NUNES | | | | | | ARTURO | | | | | | | | | | | | | | | | | | [id number] AND | | | | | | [...] | | + +---------+ + + | [facility] DEPARTMENT OF | | | | [...] | | | | DAISY, | HARDIK ZAVALA, | | | | [...] | | + +---------+ + + | [facility] DEPARTMENT OF | | | | [...] 1: GABE | | | | | DAISY | HARDIK | | | | | [...] | | + +---------+ + + | [facility] DEPARTMENT OF | | | | | RADIOLOGY | | | | + +---------+ + + CHEST, 1 VIEW, PORTABLE (04/04/1993 6:00 AM PDT) + + + + + + | Component | Value | Ref Range | Performed | Pathologist | | | | | At | Signature | + + + + + + | CHEST, 1 | Radiologist 1: GABE | | | | | DAISY | HARDIK | | | | | PORTABLE | J.-Radiologist 2: | | | | | | BRET JOLLEY, | | | | | | PORFIRIO NUNES | | | | | | ARTURO | | | | | | | | | | | | | | | | | | [id number] | | | | | | CHEST: [...] | | + +---------+ + + | [facility] DEPARTMENT OF | | | | | RADIOLOGY | | | | + +---------+ + + CHEST, 1 VIEW, PORTABLE (04/03/1993 3:30 PM PDT) + + + + + + | Component | Value | Ref Range | Performed | Pathologist | | | | | At | Signature | + + + + + + | CHEST, 1 | Radiologist 1: GABE | | | | | DAISY, | HARDIK | | | | | PORTABLE | J.-Radiologist 2: | | | | | | BRET JOLLEY, | | | | | | PORFIRIO NUNES | | | | | | ARTURO | | | | | | | | | | | | | | | | | | [id number] | | | | | | CHEST: [...] | | + +---------+ + + | [facility] DEPARTMENT OF | | | | [...] | | | | | PORTABLE | MAugustina-Radiologist 2: | | | | | | KYLER DIAZ | | | | | | PORFIRIO NUNES | | | | | | ARTURO | | | | | | | | | | | | | | | | | | [id number], | | | | | | PORTABLE, [...] | | + +---------+ + + | [facility] DEPARTMENT OF | | | | [...] | | | | | DAISY, | KYLER, | | | | | PORTABLE | M.DLedy-Radiologist 2: | | | | | | KYLER DIAZ, | | | | | | M.D.PORFIRIO ZAVALA | | | | | | ARTURO | | | | | | | | | | | | | | | | | | [id number], | | | | | | PORTABLE, [...] + | CHEST, 1 | Radiologist 1: GABE | | | | | DAISY, | HARDIK | | | | | PORTABLE | J.-Radiologist 2: | | | | | | HARDIK BERNAL | | | | | | PORFIRIO PLASENCIA | | | | | | | | | | | | [id number] | | | | | | PORTABLE [...] | | + +---------+ + + | [facility] DEPARTMENT OF | | | | [...] LAMAS, | | | | | | IdrisZAVALAPORFIRIO [...] | | | | | | [facility] | | | | | | Bilateral [...] + | ABDOMEN, 1 | Radiologist 1: ADAMS | | | | | DAISY, | Idrsi MONROY-Radiologist | | | | | PORTABLE [...] | | + +---------+ + + | [facility] DEPARTMENT OF | | | | [...] | | + +---------+ + + | [facility] DEPARTMENT OF | | | | | RADIOLOGY | | | | + +---------+ + + ABDOMEN, 1 VIEW, PORTABLE (03/30/1993 11:50 PM PDT) + + + + + + | Component | Value | Ref Range | Performed | Pathologist | | | | | At | Signature | + + + + + + | ABDOMEN, 1 | Radiologist 1: ADAMS | | | | | DAISY | Idris MONROY-Radiologist | | | | [...] | | + +---------+ + + | [facility] DEPARTMENT OF | | | | | RADIOLOGY | | | | + +---------+ + + FOOT, 2 VIEWS (03/30/1993 11:50 PM PDT) + + + + + + | Component | Value | Ref Range | Performed | Pathologist | | | | | At | Signature | + + + + + + | NANCY, 2 | Radiologist 1: ADAMS | | | | | IAN | Idris MONROY-Radiologist | | | | [...] | | + +---------+ + + | [facility] DEPARTMENT OF | | | | [...] | + + + | Ordered by MAGDA LEON | | + + + + +---------+ + + | Performing | Address | City/State/Zipcode | Phone Number | | Organization | | | | + +---------+ + + | [facility] DEPARTMENT OF | | | | | RADIOLOGY | | | | + +---------+ + + documented in this encounter Visit Diagnoses Not on filedocumented in this encounter"
--- OUTSIDE RECORDS SUMMARY | ~2020-08-24 | XMS | Encounter Summary ---
Demographics + + + | Address | [address] | | | [place] [address] | + + + | Home Phone | | + + + | Preferred Language | Unknown | + + + | Marital Status | Single | + + + | Latter-Day Affiliation | PRO | + + + [...] [place] | | | | | [address] | | + + + + + Care Team Providers + +------+ + | Care Front Desk Agent Name | Role | Phone | [...] Clinic | | | | | | [facility], [address] | | | | | | [place], [place] | | | | | | [address] | | | | | | [phone] | | | +--------+ + + + [...] as of this encounter Progress Notes Interface, Advertising Representative In - 01/06/2007 5:03 AM PST CLINIC DATE: 11/10/97 [facility] - FOLLOW-UP VISIT [...] of narcotic medication misuse. Nelson Melara M.D. Skiver Box Toe, Anesthesiology [facility] MANDY/camryn cc: Robert Carlson M.D. Professor, Vascular Surgery documented in this encounter Plan of Treatment Not on filedocumented as of this encounter Visit Diagnoses Not on filedocumented in this encounter"
--- OUTSIDE RECORDS SUMMARY | ~2020-08-24 | XMS | Encounter Summary ---
Demographics + + + | Address | [address] | | | [place] [address] | + + + | Home Phone [...] Team Providers + +------+ + | Care Microsoft Bi Developer Name | Role | Phone | + +------+ + | Rhaul Silva MD | PCP | | + [...] [address] | | | | | [place], [place] | [place], [place] | | | | | [address] | [address] | | | | | [phone] | [phone] | | | | | | | [...] | | | Visit | | [address] | | | | | | [address] | | | | | | | [...]
--- OUTSIDE RECORDS SUMMARY | ~2020-08-24 | XMS | Encounter Summary ---
Demographics + + + | Address | [address] | | | [place] [address] | + + + | Home Phone [...] + + + | Author | [facility] | + + + | Organization | [facility] | + + + | Address | Unknown | + + + | Phone | Unavailable | + + + Support + + + + + | Name | Relationship | Address | Phone | + + + + + | Darci Andujar | [address] | [place] | | | | | [address] | | + + + + + Care Team Providers + +------+ + | Care Sample Supervisor Name | Role | Phone | [...] [address] | | | | | | [place], [place] | | | | | | [address] | | | +--------+ + + + [...] as of this encounter Progress Notes Interface, Airplane Cabin Attendant In - 03/27/2007 3:12 AM PDT CLINIC [...] an abnormal AC-BE, he was referred to [facility] for colonoscopy. MEDICATIONS: 1. Vicodin. 2. Various [...] Dr. Valles who is his physician in [place], [place]. He has made me aware that [...] M.D. Fellow, Gastroenterology SHANEL/stephon cc: [facility] [place] documented in this encounter Plan of Treatment Not on filedocumented as of this encounter Visit Diagnoses Not on filedocumented in this encounter"
--- OUTSIDE RECORDS SUMMARY | ~2020-08-24 | XMS | Encounter Summary ---
Demographics + + + | Address | [address] | | | [place] [address] | + + + | Home Phone [...] Team Providers + +------+ + | Care E Commerce Web Developer Name | Role | Phone | + +------+ + | Rahul Silva MD | PCP | | + +------+ + Encounter Details +--------+ + + + + | Date | Type | Department | Care Team | Description | +--------+ + + + + | 08/19/ | Orders Only | [facility] | Conversion | | | 2017 | | NEPHROLOGY [place] | Transaction, | | | | | [address] | Provider Unknown | | | | | [address] [place] [address] | | | | | | [address] | (Fax) | | | | | [phone] | | | +--------+ + + + [...] [facility] | | | | Visit | | [address] [facility] | | | | | | [address] | | | | | | | [...] | | | LAB | | | Bhutanese | | | | | + + [...]
--- OUTSIDE RECORDS SUMMARY | ~2020-08-24 | XMS | Encounter Summary ---
Demographics + + + | Address | [address] | | | [place] [address] | + + + | Home Phone | | + + + | Preferred Language | Unknown | + + + | Marital Status | Single | + + + | Christianity Affiliation | PRO | + + + [...] [place] | | | | | [address] | | + + + + + Care Team Providers + +------+ + | Care Swim Instructor Name | Role | Phone | [...] Clinic | | | | | | [facility], [address] | | | | | | [place], [place] | | | | | | [address] | | | | | | [phone] | | | +--------+ + + + [...] as of this encounter Progress Notes Interface, Supervisor Specialty Plant In - 01/22/2007 3:04 AM PST CLINIC DATE: 06/07/97 NEUROLOGY CLINIC HISTORY OF PRESENT ILLNESS: Mr. Andujar is a 56 year-old male who is being evaluated in the Clinic for problems with balance and tremulousness of both upper extremities. He has been referred to this Clinic by Dr. Valles from [place], [place], and has also previously undergone extensive evaluations in the Neurosurgical Clinic and at Vascular Surgery at [facility]. His most recent hospitalization to [facility] was December 28, 1996, when he [...] evaluation in the Pain Management Clinic at [facility] and previous trials of Neurontin and mexiletine hydrochloride apparently appears to have been unsuccessful. Shortly following his December hospitalization at [facility], Mr. Andujar apparently became comatose in January from an accidental overdose of Darvon for which he was admitted to [facility] in [place], [place]. The details pertaining to this hospitalization are currently not available but as per Mr. Andujar, he was in a coma for a six day period and upon recovery noted tremulousness of both upper extremities, worse on his left than on his right. 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 Since his discharge from [facility], however, he has been experiencing increasing problems with balance and apparently has fallen on several occasions. The head CT-scan that was done at [facility], dated February 07, 1997, reveals a low attenuation area in the left anterior basal ganglia felt to represent a small lacunar infarct, with no other significant abnormality. Mr. Andujar states that during the course of his hospitalization at [facility] he apparently fell on three occasions sustaining occipital head trauma but did not undergo subsequent brain imaging studies. His stay at [facility] lasted two weeks. By his report, he [...] Mr. 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 He currently smokes one-half [id number] since age 23. Denies current alcohol use [...] in turn led to his hospitalization at [facility] in January 1997 for coma at which [...] procedures for pain relief. Michelle Landon M.D. Door Opener, Neurology GN:fermin C: 06/28/97 cc: RUBIA VALLES MD [address] [facility] [address] Alina Moise M.D. Professor and Edge Sawyer, Division of Neurosurgery Robert Carlson M.D. Professor, Vascular Surgery documented in this encounter Plan of Treatment Not on filedocumented as of this encounter Visit Diagnoses Not on filedocumented in this encounter"
--- OUTSIDE RECORDS SUMMARY | ~2020-08-24 | XMS | Encounter Summary ---
Demographics + + + | Address | [address] | | | [place] [address] | + + + | Home Phone [...] [place] | | | | | [address] | | + + + + + Care Team Providers + +------+ + | Care Inventory Analyst Name | Role | Phone | [...] Rd | | | | | | [place] | | | | | | [address] | | | +--------+ + + + [...] as of this encounter Discharge Summaries Interface, Machine Shop Repair Technician In - 04/01/2007 5:08 AM PDT [address] [address] [facility] MEDICAL SUMMARY OF HOSPITALIZATION Med Rec [...] NK:freddie A cc: RUBIA KNAPP MD [address] [facility] [address] documented in this encounter Plan of Treatment Not on filedocumented as of this encounter Visit Diagnoses Not on filedocumented in this encounter"
--- OUTSIDE RECORDS SUMMARY | ~2020-08-24 | XMS | Encounter Summary ---
Demographics + + + | Address | [address] | | | [place] [address] | + + + | Home Phone [...] Team Providers + +------+ + | Care Stage Driver Name | Role | Phone | + +------+ + | Rahul Silva MD | PCP | | + +------+ + Encounter Details +--------+ + + + + | Date | Type | Department | Care Team | Description | +--------+ + + + + | 04/10/ | Orders Only | [facility] | Conversion | | | 2014 | | [facility] [place] | Transaction, | | | | | [address] | Provider Unknown | | | | | [address] [place], [place] | [phone] | | | | | [address] | | | | | | [phone] | | | +--------+ + + + [...] 2020 | Office | | [address] [facility] | | | | Visit | | [address] [place] [address] | | | | | | [address] | | | | | | | | +--------+ + + + + documented as of this encounter Procedures + +--------+ + + + | Procedure Name | Priori | Date/Time | Associated Diagnosis | Comments | | | ty | | | | + +--------+ + + + | EXTERNAL LAB: CBC | Routin | 04/10/2015 | | Results [...]
--- OUTSIDE RECORDS SUMMARY | ~2020-08-24 | XMS | Encounter Summary ---
Demographics + + + | Address | [address] | | | [place] [address] | + + + | Home Phone [...] Team Providers + +------+ + | Care Multimedia Assistant Name | Role | Phone | [...] + + | 09/13/ | Telephone | [facility] | Terri Aguilar, | Follow-up | | 2019 | | VASCULAR SURGERY | Recycling Specialist | | | | | [address] | | | | | | [place] | | | | | | [address] | | | | | | [phone] | | | +--------+ + + + [...] Miscellaneous Notes Telephone Encounter - Terri Aguilar Recycling Specialist - 09/13/2019 11:01 AM PDTSpoke wi th pt's daughter and pt. Pt is doing okay - there was some increased pain at the site, but t he bandages were removed this morning and the pain is much better. Reminded both of post-op instructions. He is scheduled for f/u with [facility] on 09/30/2019. Encouraged both to call back [...] | | | Visit | | [address] | | | | | | [address] | | | | | | | | +--------+ + + + + documented as of this encounter Visit Diagnoses Not on filedocumented in this encounter"
--- OUTSIDE RECORDS SUMMARY | ~2020-08-24 | XMS | Encounter Summary ---
Demographics + + + | Address | [address] | | | [place] [address] | + + + | Home Phone [...] Providers + +------+ + | Care Contract Technician Name | Role | Phone | [...] [address] | | | | | [place], [place] | [place], [place] | | | | | [address] | [address] | | | | | [phone] | | | | | | | [...] 2020 | Office | | [address] [facility] | | | | Visit | | [address] | | | | | | [address] | | | | | | | [...]
--- OUTSIDE RECORDS SUMMARY | ~2020-08-24 | XMS | Encounter Summary ---
Demographics + + + | Address | [address] | | | [place] [address] | + + + | Home Phone [...] Providers + +------+ + | Care Hand Stripper Name | Role | Phone | + +------+ + | Rahul Silva MD | PCP | | + +------+ + Encounter Details +--------+ + + + + | Date | Type | Department | Care Team | Description | +--------+ + + + + | 03/01/ | Orders Only | [facility] | Conversion | | | 2019 | | NEPHROLOGY [place] | Transaction, | | | | | [address] | Provider Unknown | | | | | [address] [place] [address] | | | | | | [address] | (Fax) | | | | | [phone] | | | +--------+ + + + [...] | | | Visit | | [address] [facility] | | | | | | [address] | | | | | | | [...] - 1.030 | EXTERNAL | | | [place], | | | LAB | | | [...] + + + + | Non- | 3.21 (A) | 4.3 - 5.7 10 | EXTERNAL | | | Red Blood | | | LAB | | | Cells | | | | | | Counted | | | | | + + + + + + | Hemoglobin | 9.3 (A) | 13.5 - 18.0 [...] | | | LAB | | | Czech | | | | | + + [...]
--- OUTSIDE RECORDS SUMMARY | ~2020-08-24 | XMS | Encounter Summary ---
Demographics + + + | Address | [address] | | | [place] [address] | + + + | Home Phone | | + + + | Preferred Language | Unknown | + + + | Marital Status | Single | + + + | Mu-Ism Affiliation | PRO | + + + [...] [place] | | | | | [address] | | + + + + + Care Team Providers + +------+ + | Care Supervisor Lace Tearing Name | Role | Phone | + [...] | | | amputation | [place], | [place], [place] | | | | | stump, | [place] [address] | [address] | | | | | unspecified | Phone: | Phone: | | | | | | [phone] | [phone] | | | | | | Fax: | Fax: | | | | | | [phone] | [phone] | +--------+--------+ + + + + Encounter Details +--------+---------+ + + + | Date | Type | Department | Care Team | Description | +--------+---------+ + + + | 04/10/ | Office | [facility] | Seven Reilly MD | Low back pain; | | 2009 | Visit | Pain Center at | [address] | Herniated lumbar | | | | [facility] | [place], [place] | intervertebral disc; | | | | [address] | [address] | Stump pain (HCC) | | | | [facility] | [phone] | | | | | and Healing, | | | | | | Building | | | | | | Floor [place], [place] | | | | | | [address] | | | | | | [phone] | | | +--------+---------+ + + + [...] edited the trainee's note. Seven Reilly MD, [facility], [facility], Mariano Rubio MD - 04/10/2010 12:30 PM PDT [facility] Office Visit 04/10/2010 Kavon Andujar; ; : 1940 Mr. Andujar was referred for pain management consultation by HARDIK COYNE MD [address] [place] [address] Reason for visit: Chief Complaint Patient presents [...] pain. He has been referred to the [facility] for consultation regarding this ongoing [...] that the most effective treatments include: medications. RAILROAD TRACK MECHANIC Brief Pain Inventory: (ten= worst possible pain [...] and summary of old medical records (source: [employer]), as summarized in the body of the [...]
--- OUTSIDE RECORDS SUMMARY | ~2020-08-24 | XMS | Encounter Summary ---
Demographics + + + | Address | [address] | | | [place] [address] | + + + | Home Phone [...] Providers + +------+ + | Care Director Television News Name | Role | Phone | + +------+ + | Rahul Silva MD | PCP | | + +------+ + Encounter Details +--------+ + + + + | Date | Type | Department | Care Team | Description | +--------+ + + + + | 09/01/ | Orders Only | [facility] | Farrukh Acuna MD | | | 2013 | | NEPHROLOGY [place] | [address] [place] | | | | | [address] [place] | [address] [place], [place] | | | | | [address] [place], [place] | [address] | | | | | [address] | | | | | | [phone] | | | +--------+ + + + [...] 2019 | Office | | [address] [facility] | | | | Visit | | [address] [facility] | | | | | | [address] | | | | | | | [...] | | | LAB | | | Dominican | | | | | + + [...]
--- OUTSIDE RECORDS SUMMARY | ~2020-08-24 | XMS | Encounter Summary ---
Demographics + + + | Address | [address] | | | [place] [address] | + + + | Home Phone [...] Team Providers + +------+ + | Care Water Plant Operator Name | Role | Phone | + +------+ + | Rahul Silva MD | PCP | | + +------+ + Encounter Details +--------+ + + + + | Date | Type | Department | Care Team | Description | +--------+ + + + + | 02/12/ | Orders Only | [facility] | Farrukh Acuna MD | | | 2018 | | NEPHROLOGY [place] | [address] [place] | | | | | [address] [place] | [address] [place], [place] | | | | | [address] [place], [place] | [address] | | | | | [address] | | | | | | [phone] | | | +--------+ + + + [...] | Office | | [address] [facility] | | | | Visit | | [address] [place], [place] | | | | | | [address] | | | | | | | [...] | | | LAB | | | Colombian | | | | | + + [...]
--- OUTSIDE RECORDS SUMMARY | ~2020-08-24 | XMS | Encounter Summary ---
Demographics + + + | Address | [address] | | | [place] [address] | + + + | Home Phone [...] Team Providers + +------+ + | Care Feed Research Technician Name | Role | Phone | [...] + + | 05/04/ | Refill | [facility] | Farrukh Acuna MD | Medication Refill | | 2020 | | NEPHROLOGY [place] | [address] [place] | | | | | [address] | [address] [place], [place] | | | | | [address] | [address] | | | | | [place], [place] | | | | | | [address] | | | | | | [phone] | | | +--------+--------+ + + + [...] | | | Visit | | [address] [place], [place] | | | | | | [address] | | | | | | | | +--------+ + + + + documented as of this encounter Visit Diagnoses + + | Diagnosis | + + | Essential hypertension - Primary Unspecified essential hypertension | + + | Anemia of chronic kidney failure, stage 5 ([facility]) | + + | Persistent proteinuria Proteinuria | + + | CKD (chronic kidney disease) stage 5, GFR less than 15 ml/min ([facility]) Chronic kidney | | disease, Stage V | + + documented in this encounter"
--- OUTSIDE RECORDS SUMMARY | ~2020-08-24 | XMS | Encounter Summary ---
Demographics + + + | Address | [address] | | | [place] [address] | + + + | Home Phone [...] Team Providers + +------+ + | Care Transitional Care Manager Name | Role | Phone | [...] | | | | | | ([facility]LY [facility]) | | | | [...] + + | 09/10/ | Hospital | [facility] | Brian Orosco MD | CKD (chronic kidney | | 2019 | Encounter | [facility] | [address] | disease) stage 5, | | | | OPERATING ROOM [address] | [place] | GFR less than 15 | | | | [address] | [address] | ml/min ([facility]) | | | | [place] | [phone] | | | | | [address] | | | | | | [phone] | | | +--------+ + + + [...] shunt, please contact your ph ysician at [phone]. Discharge instructions for Diagnostic Imaging sedation patients [...] Anexsia, Lorcet, Lorcet HD, Lorcet Plus, Lortab, Prairie View, Verdrocet, Vicodin, Vi codin ES, Vicodin [...] information carefully each time. Talk to your elevator examiner and adjuster regarding the use of this medicine in children. Special care may be needed. What side effects may I notice from receiving this medicine? Side effects that you should report to your doctor or health child adolescent care as soon as p ossible: allergic [...] attention (report to your doctor or health child adolescent care if they continue or are bothersome): [...] to an official disposal site. Contact the [facility] at [phone] or your [facility] government to find a site. If you [...] this medicine? Tell your doctor or health child adolescent care if your pain does not go [...] cuts, scrapes, or blows. Date Last Reviewed: 12/01/201619990509-9815 [employer]. [address] [place] [address]. All righ ts reserved. This information is [...] | | | | | | ([facility]), Secondary | | | | | | | hyperparathyroidism | | | | | | | ([facility]) | | | | [...] 0 | 06/18/20 | | | (EDIN ODJuan Pablo) 8 mg | | | | 19 [...] and bl ood clots prevention. Prescription for Prairie View given and side effects were explained. Patient states that he also takes oxycodone at home; patient and his family were educated about taki ng oxycodone or Prairie View only and not both. OTC Tylenol intake precautions also discussed. Arabella ent and his family verbalized understanding and agreeable. Opportunity to ask questions give n, all questions were answered. Leana Pimentel RN documented in this encounter H&P Notes Brian Orosco MD - [facility] Pre-Operative History & Physical Interval Update There have been no significant clinical changes since the completion of the above H&P. Abhijit mancilla's physical assessment showed Normal appearance, alert and oriented x 3 and respiratory eff ort normal Brian Orosco MD 09/10/2019 Brian Mcneal MD - 11:00 AM PDT Subjective Subjective Mr. Andujar [...] CV: No peripheral edema, rate regular SKIN: Bolan, warm, dry without rash/lesion MS: ROM not [...] Orosco MD - 09/10/2019 2:00 PM PDT [facility] Service: Vascular Surgery Operative Note Pre-operative Diagnosis: CKD and need for snf dialysis access Post-operative Diagnosis: same Procedure(s): Right brachiocephalic fistula creation Surgeon: Brian Orosco MD Wound Care Specialist(s): None Anesthesia: Monitor Anesthesia care and Local [...] 2019 | Office | | [address] [facility] | | | | Visit | | [address] [place], [place] | | | | | | [id number] | | | | | | | [...] | | | than 15 ml/min ([facility]) | | + +--------+ [...] Testing | 65 - 99 mg/dL | [facility] | | | POC | performed at [facility] | | LABORATORY | | | | [address];[place] | | | | | | [address] | | | | + + + + + + + + | Specimen | + + | | + + + + + + + | Performing | Address | City/State/Zipcode | Phone Number | | Organization | | | | + + + + + | [facility] | [address] | [place] [address] | [phone] | + + + + + POC [...] | | | POC | performed at [facility];[address] | | LABORATORY | | | | [address];[place] | | | | | | [address] | | | | + + + + + + + + | Specimen | + + | | + + + + + + + | Performing | Address | City/State/Zipcode | Phone Number | | Organization | | | | + + + + + | [facility] | [address] | [place] [address] | [phone] | + + + + + documented in this encounter Visit Diagnoses + + | Diagnosis | + + | CKD (chronic kidney disease) stage 5, GFR less than 15 ml/min ([facility]) - Primary Chronic | | kidney disease, Stage V | + + documented in this encounter Admitting Diagnoses + + | Diagnosis | + + | CKD (chronic kidney disease) stage 5, GFR less than 15 ml/min ([facility]) Chronic kidney | | [...] One week or | | | longer, xpvrop-cyn-ggjiv use of | | | at least [...] +---------+ +---+ +---+ | New Bag | 09/10/ | | 30 mL/hr | | | | 19 12:28 | | | | | | PM PDT | | | | +---------+ +---+ +---+ +---+---+ | | | +---+---+ documented in this encounter
--- OUTSIDE RECORDS SUMMARY | ~2020-08-24 | XMS | Encounter Summary ---
Demographics + + + | Address | [address] | | | [place] [address] | + + + | Home Phone [...] Team Providers + +------+ + | Care Stem Shaper Name | Role | Phone | + [...] + + | 03/14/ | Refill | [facility] | Farrukh Aucna MD | Medication Refill | | 2019 | | NEPHROLOGY [place] | [address] [place] | | | | | [address] | [address] [place], [place] | | | | | [address] | [address] | | | | | [place], [place] | | | | | | [address] | | | | | | [phone] | | | +--------+--------+ + + + [...] | | | Visit | | [address] [place], [place] | | | | | | [address] | | | | | | | [...]
--- OUTSIDE RECORDS SUMMARY | ~2020-08-24 | XMS | Encounter Summary ---
Demographics + + + | Address | [address] | | | [place] [address] | + + + | Home Phone [...] Team Providers + +------+ + | Care Alcoholism Worker Name | Role | Phone | + +------+ + | Rahul Silva MD | PCP | | + +------+ + Encounter Details +--------+ + + + + | Date | Type | Department | Care Team | Description | +--------+ + + + + | 07/26/ | Orders Only | [facility] | Farrukh Acuna MD | Chronic kidney | | 2019 | | NEPRHOLOGY [place] | [address] | disease, stage IV | | | | [address] | [address] [place], [place] | (severe) (HCC); | | | | [address] [place], [place] | [address] | Persistent | | | | [address] | | proteinuria; | | | | [phone] | | Secondary | | | | [...] | | | Visit | | [address] [place], [place] | | | | | | [address] | | | | | | | [...]
--- OUTSIDE RECORDS SUMMARY | ~2020-08-24 | XMS | Encounter Summary ---
Demographics + + + | Address | [address] | | | [place] [address] | + + + | Home Phone [...] Team Providers + +------+ + | Care Nonprofit Manager Name | Role | Phone | [...] | Transaction, | | | | | [place], [place] | Provider Unknown | | | | | [address] | [phone] | | | | | [phone] | | | +--------+ + + + [...] 2020 | Office | | [address] [facility] | | | | Visit | | [address] [place], [place] | | | | | | [address] | | | | | | | [...]
--- OUTSIDE RECORDS SUMMARY | ~2020-08-24 | XMS | Encounter Summary ---
Demographics + + + | Address | [address] | | | [place] [address] | + + + | Home Phone [...] Team Providers + +------+ + | Care Scientist Name | Role | Phone | [...] | | | [address] [place], [place] | [address] | Chronic kidney | | | | [address] | | disease, stage IV | | | | [phone] | | (severe) (HCC); | | | [...] 2019 | Office | | [address] [facility] [address] | | | | Visit | | [address] [place], [place] | | | | | | [address] | | | | | | | [...] | | | | | | ([facility]) Persistent | | | | | | proteinuria | | + +------+--------+ + + documented as of this encounter Visit Diagnoses + + | Diagnosis | + + | Chronic kidney disease, stage IV (severe) ([facility]) Chronic kidney disease, Stage IV | | (severe) | + + | Family history of ischemic heart disease and other diseases of the circulatory system | + + | Secondary hyperparathyroidism of renal origin (HCC) Secondary hyperparathyroidism (of | | renal origin) | + + | Persistent proteinuria Proteinuria | + + documented in this encounter"
--- OUTSIDE RECORDS SUMMARY | ~2020-08-24 | XMS | Encounter Summary ---
Demographics + + + | Address | [address] | | | [place] [address] | + + + | Home Phone [...] Author + + + | Author | [facility] | + + + | Organization | [facility] | + + + | Address | Unknown | + + + | Phone | Unavailable | + + + Support + + + + + | Name | Relationship | Address | Phone | + + + + + | Darci Andujar | [place]ER[place] | [place] | | | | | [address] | | + + + + + Care Team Providers + +------+ + | Care Facilities Flight Check Pilot Name | Role | Phone | [...] Vyas | | | | | | [facility], [address] [place] [address] | | | | | | [place], [place] | | | | | | [address] | | | | | | [phone] | | | +--------+ + + + [...] as of this encounter Discharge Summaries Interface, Seam Finisher In - 02/05/2007 1:03 AM PST [address] [address] [facility] MEDICAL SUMMARY OF HOSPITALIZATION Med Rec No.: [id number] Admission Date: 12/28/96 Name: Kavon Andujar Discharge Date: 01/03/97 STAFF PHYSICIAN: Robert Carlson M.D. Professor, Vascular Surgery PRINCIPAL FINAL DIAGNOSIS: Osteophyte of left msewi-efz-psmf amputation stump. ADDITIONAL DIAGNOSES: Phantom pain. PRINCIPAL PROCEDURE: Revision of left jzhpc-ouc-xpcc amputation stump and excision of left stump osteophyte. 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 Since then he has had pain in the stump. On a computed tomography (CT) scan, it was noted that he had a large bone spur and a cyst in his stump site. HOSPITAL COURSE: The patient was admitted on December 28 and underwent revision of his left jzfpg-anm-wjex amputation stump with excision of his left [...] Normal. 3. DIET: Normal. Nick Noriega M.D. Pan Greaser, General Surgery Robert Carlson M.D. Professor, Vascular Surgery DOMINIC/jc A cc: RUBIA KNAPP MD [address] [facility] [address] documented in this encounter Plan of Treatment Not on filedocumented as of this encounter Visit Diagnoses Not on filedocumented in this encounter"
--- OUTSIDE RECORDS SUMMARY | ~2020-08-24 | XMS | Encounter Summary ---
Demographics + + + | Address | [address] | | | [place] [address] | + + + | Home Phone [...] Team Providers + +------+ + | Care Slope Runner Name | Role | Phone | [...] | | | [address] [place], [place] | [address] | | | | | [address] | | | | | | [phone] | | | +--------+ + + + [...] | | | Visit | | [address] [place], [place] | | | | | | [address] | | | | | | | [...] | | | LAB | | | [place] | | | | | + + [...]
--- OUTSIDE RECORDS SUMMARY | ~2020-08-24 | XMS | Encounter Summary ---
Demographics + + + | Address | [address] | | | [place] [address] | + + + | Home Phone [...] Team Providers + +------+ + | Care Lounge Car Attendant Name | Role | Phone | + +------+ + | Rahul Silva MD | PCP | | + +------+ + Encounter Details +--------+ + + + + | Date | Type | Department | Care Team | Description | +--------+ + + + + | 08/13/ | Orders Only | [facility] | Conversion | | | 2016 | | NEPHROLOGY [place] | Transaction, | | | | | [address] | Provider Unknown | | | | | [address] [place] | | | | | | [address] | (Fax) | | | | | [phone] | | | +--------+ + + + [...] 2019 | Office | | [address] [facility] | | | | Visit | | [facility] | | | | | | [address] | | | | | | | [...]
--- OUTSIDE RECORDS SUMMARY | ~2020-08-24 | XMS | Encounter Summary ---
Demographics + + + | Address | [address] | | | [place] [address] | + + + | Home Phone [...] [place] | | | | | [address] | | + + + + + Care Team Providers + +------+ + | Care Shiftman Name | Role | Phone | + [...] Clinic | | | | | | [facility], [address] | | | | | | [place], [place] | | | | | | [address] | | | | | | [phone] | | | +--------+ + + + [...] as of this encounter Progress Notes Interface, Professor Of History In - 01/03/2007 5:08 AM PST CLINIC DATE: 12/22/97 Mr. Andujar is referred by Dr. Jerry Smiley in the [place] area. He is currently followed by the Anesthesia Pain Service at [facility], and also recently has been followed by [...] under Dr. Robert Carlson's supervision here at [facility]. His pain continued, exacerbated by a fall [...] procedure at this time. Eric Mcclure M.D. Petroleum Blending Plant Operator, Department of Orthopaedics and Rehabilitation AY/sara A cc: Jerry Smiley M.D. (with letter) [address] [facility] [address] [place] [address] Robert Carlson M.D. FAX: [phone] Alina Moise M.D. FAX: [phone] [facility] Clinic[facility]: [phone] documented in this encounter Plan of Treatment Not on filedocumented as of this encounter Visit Diagnoses Not on filedocumented in this encounter
--- OUTSIDE RECORDS SUMMARY | ~2020-08-24 | XMS | Clinical Summary ---
Demographics + + + | Address | [address] | | | [place] [address] | + + + | Home Phone [...] Author + + + | Author | [facility] | + + + | Organization | [facility] | + + + | Address | Unknown | + + + | Phone | Unavailable | + + + Support + + + + + | Name | Relationship | Address | Phone | + + + + + | Darci Andujar | [place] | [place] | | | | | [address] | | + + + + + Care Team Providers + +------+ + | Care Water Pump Installer Name | Role | Phone | + +------+ + | Rahul Silva MD | PCP | | + +------+ + Source Comments [place] is fully live on both [facility] and [facility] In[facility] Allergies No Known Allergies Medications [...]
--- OUTSIDE RECORDS SUMMARY | ~2020-08-24 | XMS | Encounter Summary ---
Demographics + + + | Address | [address] | | | [place] [address] | + + + | Home Phone [...] Team Providers + +------+ + | Care Document Image Technician Name | Role | Phone | [...] + + | 09/10/ | Anesthesia | [facility] | Venkata Carroll | | | 2019 | [facility] | [address] | | | | | OPERATING ROOM [address] | | | | | [address] | [place] [address] | | | | | [place], [place] | [phone] | | | | | [address] | | | | | | [phone] | | | +--------+ + + + + Anesthesia Record + + + + + | Procedure Name | Responsible | Anesthesia Start | Anesthesia Stop Time | | | Anesthesiologist | Time | | + + + + + | INSERTION AV FISTULA | Venkata Carroll, | 09/10/19 1307 | 09/10/19 1401 | | (Right BBF) (Right | PHOTONICS TECHNICIAN | | | | Arm Upper) | [...] 09/10/19 1600 by | | amor | ipsa-ulm-arumjh catheter system; | Trinidad Ramírez | Leana [...] + + documented as of this encounter [place] Notes Anesthesia Postprocedure Evaluation - Venkata Carroll CRNA - 09/10/2019 2:10 PM PDTFor matting of this note might be different from the original. ANESTHESIA POSTANESTHESIA EVALUATION Kavon Andujar 79 y.o. male 1940 [id number] Procedure(s) INSERTION AV FISTULA (Right BBF) (Right Arm Upper) Cooperates? Yes Mental Status Performs simple tasks. Respiratory Satisfactory - Airway patent (self maintained). Cardiovascular Satisfactory - Blood pressure and heart rate acceptable Temperature Satisfactory Pain Satisfactory N/V Control Satisfactory Hydration Satisfactory - No signs of dehydration Vitals Value Taken Time Temp 36.3 C (97.4 F) 09/10/2019 14:07 Pulse 58 09/10/2019 14:07 Resp 12 09/10/2019 14:07 BP 135/66 09/10/2019 14:07 Arterial Line BP Arterial Line BP 2 SpO2 99 % 09/10/2019 14:07 Electronically signed by Venkata Carroll CRNA 09/10/2019 14:10 [facility] Venkata Carroll CRNA at 09/10 2:10 PM PDTAnesthesia Preprocedure Evaluation - Venkata Carroll CRNA - 09/10/2019 12:41 PM PDT ANESTHESIA PREANESTHESIA EVALUATION Kavon Andujar 79 y.o. male 1940 [id number] Procedure(s): INSERTION AV FISTULA (Right BBF) (Right Arm Upper) Medical,anesthesia, drug, allergy histories reviewed, NPO status verified. Labs reviewed. (-) perioperative beta-wes/statin not given/taken Reasons Beta Wes not given/taken:last dose within 24 hours. . Review of Systems / Med History Anesthesia History No anesthesia complications except where noted below. (+) previous surgery or anesthesia Family Anesthesia History Family Anesthesia Negative except where noted below. Cardiovascular Negative except where noted below., Exercise tolerance <4 METS(+) dyspnea o n minimal exertion (+) hypertension and essential, (+) PVD: . Pulmonary (+) Chronic Obstructive Pulmonary Disease. (+) obstructive sleep apnea. (+) Sleep apnea his tory/interventions: CPAP. (+) tobacco use (59 pack yr). (+) current smoker and tobacco cessa tion counseling given. Gastrointestinal/Hepatic (+) hypercholesterolemia. (+) acid reflux and poorly controlled. Renal (+) chronic renal insufficiency. Endocrine (+) obesity: (+) Diabetes: type 2, using insulin, uncontrolled (Hgb A1C >= 6.5), with comp lications. Hematology/Other Negative except where noted below. Cancer Negative except where noted below. Obstetrics Negative except where noted below. (+) proteinuria. Pediatric History Negative except where noted below. Neuromuscular (+) arthritis, CVA. Psychology Negative except where noted below. (+) psychiatric history of Physical Exam Airway MP I, TM >3 FB, Mouth opening >2 FB. Neck: full ROM, extends >30 degrees. Jaw protrusi on normal. Facial hair present: No Dental Grossly normal except where noted below.; (+) dentures-upper. CV Rhythm regular. Rate normal. Pulm Clear to auscultation bilaterally. Neuro Grossly normal. Anesthesia Plan ASA 4 Type: General. Induction: Intravenous. Potential problems: Monitors: Standard ASA monitors. Additional comments: Mac with periods of LOC Consent statement:Anesthetic plan, alternatives, risks and benefits discussed with patient. backache, blindness, blood transfusion, None, , discussed risks to teeth, disability, drug reaction, heart problems, ICU placement, infection, muscle aches, nausea, pain, periope rative CV events, post-op intubation, respiratory events, sore throat, stroke, voice injury, delirium. Consenting person understands and agrees to proceed . Electronically Signed by: Venkata Carroll CRNA ESi date/time: 09/10/2019 12:41 documented in th is encounter Miscellaneous Notes Anesthesia Post-op Handoff - Venkata Carroll CRNA - 09/10/2019 2:08 PM PDTFormatting o f this note might be different from the original. ANESTHESIA HANDOFF NOTE Kavon Andujar 79 y.o. male 1940 [id number] INSERTION AV FISTULA (Right BBF) (Right Arm Upper) HANDOFF NOTE Handoff Protocol Used: post-procedure handoff checklist completed The following were completed during the transfer of care: 1. Identification of patient 2. Identification of responsible practitioner (primary service) 3. Discussion of pertinent medical history 4. Discussion of the surgical/procedure course (procedure, reason for surgery, procedure pe rformed) 5. Intraoperative anesthetic management and issues/concerns 6. Expectations/plans for the early post-procedure period 7. Opportunity for questions and acknowledgement of understanding of report from receiving team Patient Location: Phase II Condition: awake Airway/O2: no supplemental O2 The significant anesthesia concerns and VS in Epic were reviewed with the receiving team. Venkata Carroll CRNA 09/10/2019 14:09 [facility] Venkata Carroll CRNA at 09/10 2:10 PM PDTdocumented in this encounter Plan of Treatment +--------+ + + + + | Date | Type | Specialty | Care Team | Description | +--------+ + + + + | 10/30/ | Virtual | Nephrology | Farrukh Acuna MD | | | 2019 | Office | | [address] [facility] | | | | Visit | | [address] [place], [place] | | | | | | [address] | | | | | | | [...]
--- OUTSIDE RECORDS SUMMARY | ~2020-08-24 | XMS | Encounter Summary ---
Demographics + + + | Address | [address] | | | [place] [address] | + + + | Home Phone [...] Team Providers + +------+ + | Care Infantryman Name | Role | Phone | + +------+ + PCP | Unavailable | + +------+ + Encounter Details +--------+ + + + + | Date | Type | Department | Care Team | Description | +--------+ + + + + | 08/02/ | [facility] | [facility] | Nelson Lutz MD | | | 1991 | Encounter | MED CTR GENERIC OP | [address], [place] | | | | | CONV DEPT [address] | | | | | [place], | [address] | | | | | [place] [address] | | | | | | [phone] | | | +--------+ + + + [...] | Office | | [address] [facility] | | | | Visit | | [address] [place] | | | | | | [address] | | | | | | | | +--------+ + + + + documented as of this encounter Visit Diagnoses Not on filedocumented in this encounter"
--- OUTSIDE RECORDS SUMMARY | ~2020-08-24 | XMS | Encounter Summary ---
Demographics + + + | Address | [address] | | | [place] [address] | + + + | Home Phone [...] Providers + +------+ + | Care Staff Psychologist Name | Role | Phone | + +------+ + PCP | Unavailable | + +------+ + Encounter Details +--------+ + + + + | Date | Type | Department | Care Team | Description | +--------+ + + + + | 12/31/ | Hospital | [facility] | | | | 2000 | Encounter | MED CTR XRAY [address] | | | | | | [address] | | | | | | [place] [address] | | | | | | [phone] | | | +--------+ + + + [...] | | | Visit | | [address] [place], [place] | | | | | | [address] | | | | | | | | +--------+ + + + + documented as of this encounter Visit Diagnoses Not on filedocumented in this encounter"
--- OUTSIDE RECORDS SUMMARY | ~2020-08-24 | XMS | Encounter Summary ---
Demographics + + + | Address | [address] | | | [place] [address] | + + + | Home Phone [...] + +------+ + | Care Sales Representative Health Insurance Name | Role | Phone | + [...] + + | 08/13/ | Telephone | [facility] | Farrukh Acuna MD | Other (lab result) | | 2019 | | NEPRHOLOGY [place] | [address] | | | | | [address] | [address] [place], [place] | | | | | [address] [place], [place] | [address] | | | | | [address] | | | | | | [phone] | | | +--------+ + + + [...] Notes Telephone Encounter - Oly Alvarenga V, Screw Machine Tool Setter - 08/13/2019 3:32 PM PD[address]om e with Dr. Acuna. Per Dr. Acuna, no change, potassium ok. Called and spoke with daughterCharlotte. Relay the provider message. She voiced understandin g. No further questions. elephone Encounter - Oly Alvarenga V Screw Machine Tool Setter - 08/13 3:05 PM PDTPlease review and [...] lab results. Please call them back at [phone]. Detailed message may be left on phone: Yes Last OV: 05/31/19 Next OV: 10/04/19 If this is a symptom based call and you were unable to immediately transfer the call to [facility] staff, was caller made aware that if at any timeshefeels it is an emergency they shoul d call 911 or go to the nearest emergency room? N/A Is mammography supervisor needed: no documented in this enc ounter Plan of Treatment +--------+ + + + + | Date | Type | Specialty | Care Team | Description | +--------+ + + + + | 10/30/ | Virtual | Nephrology | Farrukh Acuna MD | | | 2019 | Office | | [address] [facility] | | | | Visit | | [address] [place] | | | | | | [address] | | | | | | | | +--------+ + + + + documented as of this encounter Visit Diagnoses Not on filedocumented in this encounter"
--- OUTSIDE RECORDS SUMMARY | ~2020-08-24 | XMS | Encounter Summary ---
Demographics + + + | Address | [address] | | | [place] [address] | + + + | Home Phone [...] Providers + +------+ + | Care Roll Over Press Operator Name | Role | Phone [...] [address] | (cancellation) | | | | [place], | [place], [place] | | | | | [place] [address] | [address] | | | | | [phone] | | | +--------+ + + + [...] with Dr. Magana at 1pm for a YACHT HAND consult due to not feeling well. Appointment [...] | | | Visit | | [address] [place], [place] | | | | | | [address] | | | | | | | | +--------+ + + + + documented as of this encounter Visit Diagnoses Not on filedocumented in this encounter"
--- OUTSIDE RECORDS SUMMARY | ~2020-08-24 | XMS | Encounter Summary ---
Demographics + + + | Address | [address] | | | [place] [address] | + + + | Home Phone [...] Team Providers + +------+ + | Care Gate Shear Operator Name | Role | Phone | [...] | | [address] [place] | [place] [address] | | | | | [place] [address] | | | | | | [phone] | | | +--------+ + + + [...] | | | Visit | | [address] [place] | | | | | | [address] | | | | | | | [...]
--- OUTSIDE RECORDS SUMMARY | ~2020-08-24 | XMS | Encounter Summary ---
Demographics + + + | Address | [address] | | | [place] [address] | + + + | Home Phone [...] Providers + +------+ + | Care Front Office Administrator Name | Role | Phone | [...] + + | 10/19/ | Documentati | [facility] | Simon, | Results (09/22/19) | | 2019 | on | NEPHROLOGY [place] | [facility] | | | | | [address] | Mail Order Sorter | | | | | [address] | | | | | | [place] | | | | | | [address] | | | | | | [phone] | | | +--------+ + + + [...] | Office | | [address] [facility] | | | | Visit | | [address] [place], [place] | | | | | | [address] | | | | | | | [...]
--- OUTSIDE RECORDS SUMMARY | ~2020-08-24 | XMS | Encounter Summary ---
Demographics + + + | Address | [address] | | | [place] [address] | + + + | Home Phone [...] [place] | | | | | [address] | | + + + + + Care Team Providers + +------+ + | Care Decorative Cutting Machine Tender Name | Role | Phone | + +------+ + PCP | Unavailable | + +------+ + Encounter Details +--------+ + + + + | Date | Type | Department | Care Team | Description | +--------+ + + + + | 12/28/ | Procedure - | Digestive [facility] | Record, Operation | Operative Report | | 1996 | | Center at [facility] [address] | | | | | Transcribed | [facility] | | | | | | for Health and | | | | | | Healing, Building [address] | | | | | | [place], [place] | | | | | | [address] | | | | | | [phone] | | | +--------+ + + + [...] 12/28/1996 12:00 AM PSTAssociated Order(s): OPERATION RECORD [place] [address], [place] [address] [facility] OPERATION RECORD Med Rec No.: [id number] Date: 12/28/96 Name: Kavon Andujar ATTENDING SURGEON: Robert Carlson M.D. Professor, Vascular dietetic technician registered(S): Nick Noriega M.D. Electrical Designer, General Surgery POSTOPERATIVE DIAGNOSIS(ES): Left stump osteophyte. OPERATION(S) PERFORMED: Revision of left dmyuc-uju-jayx amputation and excision of stump osteophyte. SPECIMEN(S) REMOVED: 1. Swab of pseudocapsule for culture. 2. Osteophyte to Pathology. ANESTHESIA: General endotracheal anesthesia. 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 He has developed pain over the stump. A recent CT scan showed an osteophyte growing on the end of the stump. PROCEDURE: The patient was taken to the Operating Room. General endotracheal anesthesia was performed by Anesthesia. The left shvos-mmc-lvqz amputation stump was sterilely prepped and draped [...] Unit in stable condition. Nick Noriega M.D. Electrical Designer, General Surgery Robert Carlson M.D. Professor, Vascular [...] | + + | 12/28/1996 12:00 AM [facility] | | [facility] | | [address] [place], [place] [address] | | [facility] | | | | OPERATION RECORD | | | | [facility] Rec No.: [id number] Date: 12/28/96 | | | | Name: Kavon Andujar | | | | | | ATTENDING SURGEON: Robert Carlson M.D. | | Professor, | | Vascular Surgery | | | | LABOR SPECIALIST(S): Nick Noriega M.D. | | Electrical Designer, General Surgery | | | | POSTOPERATIVE DIAGNOSIS(ES): Left stump osteophyte. | | | | OPERATION(S) PERFORMED: Revision of left fwlpy-qcq-kqsb amputation | | and excision of stump osteophyte. | | | | SPECIMEN(S) REMOVED: 1. Swab of pseudocapsule for culture. | | 2. Osteophyte to Pathology. | | | | ANESTHESIA: General endotracheal anesthesia. | | | | INDICATIONS: The patient is a 56-year-old white male who | | is status post left huncq-kbr-gcur | | amputation three years ago secondary | | to embolus. He has developed pain over the stump. A recent CT scan showed | | an osteophyte growing on the end of the stump. | | | | PROCEDURE: The patient was taken to the Operating Room. | | General endotracheal anesthesia was | | performed by Anesthesia. The | | left shjfe-gdo-ggfe amputation stump was sterilely prepped and draped [...] | | Nick Noriega M.D. | | Electrical Designer, General Surgery | | Robert Carlson M.D. | | Professor, | | Vascular Surgery | | | | DOMINIC/jc | | | | A | | | | cc: | | | + + documented in this encounter Visit Diagnoses Not on filedocumented in this encounter"
--- OUTSIDE RECORDS SUMMARY | ~2020-08-24 | XMS | Encounter Summary ---
Demographics + + + | Address | [address] | | | [place] [address] | + + + | Home Phone [...] Team Providers + +------+ + | Care Retread Builder Name | Role | Phone | + +------+ + PCP | Unavailable | + +------+ + Encounter Details +--------+ + + + + | Date | Type | Department | Care Team | Description | +--------+ + + + + | 05/28/ | Hospital | [facility] | Elisabeth, | CORON ATHEROSCL | | 2002 - | Encounter | [facility] | MD Joshua | [place] [facility] | | | | CLINICAL DECISION | [address] | | | 05/29/ | | [address] | [address] [place], [place] | | | 2002 | | [place], [place] | [address] | | | | | [address] | [phone] | | | | | [phone] | | | +--------+ + + + [...] 2020 | Office | | [address] [facility] | | | | Visit | | [address] [place] | | | | | | [address] | | | | | | | | +--------+ + + + + documented as of this encounter Visit Diagnoses + + | Diagnosis | + + | Coronary atherosclerosis of qawalangin coronary artery | + + documented in this encounter"
--- OUTSIDE RECORDS SUMMARY | ~2020-08-24 | XMS | Encounter Summary ---
Demographics + + + | Address | [address] | | | [place] [address] | + + + | Home Phone [...] Providers + +------+ + | Care Emblem Drawer In Name | Role | Phone | [...] [address] | | | | | [place], [place] | [place], [place] | | | | | [address] | [address] | | | | | [phone] | [phone] | | | | | | | [...] | | Visit | | [address] [place] | | | | | | [address] | | | | | | | [...]
--- OUTSIDE RECORDS SUMMARY | ~2020-08-24 | XMS | Encounter Summary ---
Demographics + + + | Address | [address] | | | [place] [address] | + + + | Home Phone [...] Providers + +------+ + | Care Senior Project Architect Name | Role | Phone | [...] + + | 09/01/ | Telephone | [facility] | Brian Orosco MD | Advice Only | | 2019 | | VASCULAR SURGERY | [address] | (surgery) | | | | [address] [place] | [place], [place] | | | | | [place], [place] | [address] | | | | | [address] | [phone] | | | | | [phone] | | | +--------+ + + + [...] immediately transfer the call to a p rovidixie washing machine operator was caller made aware that if [...] | | | Visit | | [address] [place], [place] | | | | | | [address] | | | | | | | | +--------+ + + + + documented as of this encounter Visit Diagnoses Not on filedocumented in this encounter"
--- OUTSIDE RECORDS SUMMARY | ~2020-08-24 | XMS | Encounter Summary ---
Demographics + + + | Address | [address] | | | [place] [address] | + + + | Home Phone [...] Team Providers + +------+ + | Care Geodetic Survey Director Name | Role | Phone | [...] [address] | | | | | [place], [place] | [place], [place] | | | | | [address] | [address] | | | | | [phone] | [phone] | | | | | | | [...] | | | Visit | | [address] [place] [place] | | | | | | [address] | | | | | | | [...]
--- OUTSIDE RECORDS SUMMARY | ~2020-08-24 | XMS | Encounter Summary ---
Demographics + + + | Address | [address] | | | [place] [address] | + + + | Home Phone [...] Team Providers + +------+ + | Care Servicenow Administrator Name | Role | Phone | + +------+ + | Rahul Silva MD | PCP | | + +------+ + Encounter Details +--------+ + + + + | Date | Type | Department | Care Team | Description | +--------+ + + + + | 09/07/ | Orders Only | [facility] | Farrukh Acuna MD | | | 2018 | | NEPRHOLOGY [place] | [address] [facility] [address] | | | | | [address] | [address] [place], [place] | | | | | [address] [place], [place] | [address] | | | | | [address] | | | | | | [phone] | | | +--------+ + + + [...] | | | Visit | | [address] [place], [place] | | | | | | [address] | | | | | | | [...]
--- OUTSIDE RECORDS SUMMARY | ~2020-08-24 | XMS | Encounter Summary ---
Demographics + + + | Address | [address] | | | [place] [address] | + + + | Home Phone [...] Team Providers + +------+ + | Care Phone Operator Name | Role | Phone | [...] | | | [address] [place] | [place] [address] | | | | | [place] [address] | | | | | | [phone] | | | +--------+ + + + [...] 2019 | Office | | [address] [facility] [address] | | | | Visit | | [address] [place] | | | | | | [address] | | | | | | | [...]
--- OUTSIDE RECORDS SUMMARY | ~2020-08-24 | XMS | Encounter Summary ---
Demographics + + + | Address | [address] | | | [place] [address] | + + + | Home Phone [...] | [facility] | | | [...] Team Providers + +------+ + | Care Register Repairer Name | Role | Phone | + +------+ + | Rahul Silva MD | PCP | | + +------+ + Encounter Details +--------+ + + + + | Date | Type | Department | Care Team | Description | +--------+ + + + + | 08/20/ | Orders Only | [facility] | Farrukh Acuna MD | Anemia of chronic | | 2019 | | NEPHROLOGY [place] | [address] [place] | renal failure, stage | | | | [address] [place] | [address] [place], [place] | 4 (severe) (HCC) | | | | [address] [place], [place] | [address] | (Primary Dx); Stage | | | | [address] | | 4 chronic kidney | | | | [phone] | | disease (HCC); | | | [...] | Office | | [address] [facility] | | | | Visit | | [address] [place] | | | | | | [address] | | | | | | | [...]
--- OUTSIDE RECORDS SUMMARY | ~2020-08-24 | XMS | Encounter Summary ---
Demographics + + + | Address | [address] | | | [place] [address] | + + + | Home Phone [...] Team Providers + +------+ + | Care Ware Cleaner Name | Role | Phone | [...] + + | 09/23/ | Telephone | [facility] | Brian Orosco MD | Advice Only | | 2019 | | VASCULAR SURGERY | [address] | | | | | [address] [place] | [place], [place] | | | | | [place], [place] | [address] | | | | | [address] | [phone] | | | | | [phone] | | | +--------+ + + + [...] transfer the call to a rolf munoz high frequency mill operator was caller made aware that if [...] | | | Visit | | [address] [place] | | | | | | [address] | | | | | | | | +--------+ + + + + documented as of this encounter Visit Diagnoses Not on filedocumented in this encounter
--- OUTSIDE RECORDS SUMMARY | ~2020-08-24 | XMS | Encounter Summary ---
Demographics + + + | Address | [address] | | | [place] [address] | + + + | Home Phone [...] Team Providers + +------+ + | Care Pole Climber Name | Role | Phone | + [...] + + | 11/08/ | Documentati | [facility] | Alfred, | Results (10/10/19) | | 2019 | on | NEPHROLOGY [place] | [facility] | | | | | [address] | Composite Science Teacher | | | | | [address] | | | | | | [place] | | | | | | [address] | | | | | | [phone] | | | +--------+ + + + [...] 2019 | Office | | [address] [facility] [address] | | | | Visit | | [address] [place], [place] | | | | | | [address] | | | | | | | [...]
--- OUTSIDE RECORDS SUMMARY | ~2020-08-24 | XMS | Encounter Summary ---
Demographics + + + | Address | [address] | | | [place] [address] | + + + | Home Phone [...] Team Providers + +------+ + | Care Packaging Associate Name | Role | Phone | + +------+ + | Rahul Silva MD | PCP | | + +------+ + Encounter Details +--------+ + + + + | Date | Type | Department | Care Team | Description | +--------+ + + + + | 07/30/ | Orders Only | [facility] | Conversion | | | 2016 | | [facility] | Transaction, | | | | | [address] | Provider Unknown | | | | | [address] [place], [place] | [phone] | | | | | [address] | (Fax) | | | | | [phone] | | | +--------+ + + + [...] 2019 | Office | | [address] [facility] | | | | Visit | | [address] [place] | | | | | | [address] | | | | | | | [...]
--- OUTSIDE RECORDS SUMMARY | ~2020-08-24 | XMS | Encounter Summary ---
Demographics + + + | Address | [address] | | | [place] [address] | + + + | Home Phone [...] Providers + +------+ + | Care Egg Breaker Name | Role | Phone | [...] + + | 09/24/ | Telephone | [facility] | Farrukh Acuna MD | Lab Results | | 2019 | | NEPHROLOGY [place] | [address] [place] | | | | | [address] [place] | [address] [facility] [place] | | | | | [address] [place], [place] | [address] | | | | | [address] | | | | | | [phone] | | | +--------+ + + + [...] Miscellaneous Notes Telephone Encounter - Trinidad Simon Warehouse Clerk - 09/24/2019 2:49 PM PDTDrLedy bloom reviewed labs and stated that the patient labs show that he is stable. Called Charlotte and informed her of this. She verbalized understanding and had no further que stions at this time.Electronically signed by Trinidad Simon, Warehouse Clerk at 2018 3:22 PM PDTTelephone Encounter - Trinidad Simon, Warehouse Clerk - 09/24/2019 2:46 PM PDTPatients daughter called [...] | | | Visit | | [address] [place] | | | | | | [address] | | | | | | | | +--------+ + + + + documented as of this encounter Visit Diagnoses Not on filedocumented in this encounter"
--- OUTSIDE RECORDS SUMMARY | ~2020-08-24 | XMS | Encounter Summary ---
Demographics + + + | Address | [address] | | | [place] [address] | + + + | Home Phone [...] + +------+ + | Care Health Information Director Name | Role | Phone | [...] + + | 03/23/ | Documentati | [facility] | Simon, | Results (03/21/20) | | 2020 | on | NEPHROLOGY [place] | [facility] | | | | | [address] | Calculating Machine Mechanic | | | | | [address] [facility] | | | | | | [place], [place] | | | | | | [address] | | | | | | [phone] | | | +--------+ + + + [...] Visit | | [address] [facility] [place] | | | | | | [address] | | | | | | | [...]
--- OUTSIDE RECORDS SUMMARY | ~2020-08-24 | XMS | Clinical Summary ---
Demographics + + + | Address | [address] | | | [place] [address] | + + + | Home Phone [...] Team Providers + +------+ + | Care Paving Rammer Name | Role | Phone | + [...] capsule by | 90 | 3 | 09/ | | Activ | | (ROCALTROL) 0.25 mcg | mouth Daily. | capsule | | 8/20 | | e | | capsuleIndications: | | | | 19 | | | | Stage 5 chronic | | | | | | | | kidney disease not | | | | | | | | on chronic dialysis | | | | | | | | ([facility]), Secondary | | | | | | | | hyperparathyroidism | | | | | | | | ([facility]) | | | | | | | [...] tablets by | 180 | 3 | 04/1 | | Activ | | (DEMADEX) 20 [...] + +---------+------+------+-------+ | darbepoetin amarjit | Inject 0.5 mLs under | 0.5 mL | 5 | 07/02 | | Activ | | (ARANESP, ALBUMIN | the skin Every 28 | | | 06/19 | | e | | FREE,) 100 mcg/0.5 | days. | | | 20 | | | | mL | | [...] | | + + + +---------+------+------+-------+ | omeprazole | Take 20 mg by mouth | | 0 | 09/0 | | Activ | | (PRILOSEC) 20 mg | Daily. | | | 2/20 | | e | | capsule | | | | 20 | | | + + + +---------+------+------+-------+ | darbepoetin amarjit | Inject 1 mL under | 1 mL | 0 | 01/0 | 08/2 | Disco | | (ARANESP, ALBUMIN | the skin Every 30 | | | 7/20 | 7/20 | ntinu | | FREE,) 100 mcg/mL | days. | | | 20 | 20 | ed | | injectionIndications | | | | | | | | : Essential | | | | | | | | hypertension, Anemia | | | | | | | | of chronic kidney | | | | | | | | failure, stage 5 | | | | | | | | ([facility]), CKD (chronic | | | | | | | | kidney disease) | | | | | | | | stage 5, GFR less | | | | | | | | than 15 ml/min ([facility]) | | | | | | | + + + +---------+------+------+-------+ Active Problems + + + | Problem | Noted Date | + + + | CKD (chronic kidney disease) stage 5, GFR less than 15 ml/min | 08/26/2019 | + + + + + | Overview: Added automatically from request for surgery | | [id number] | + + + + + | [...] & Plan: Controlled on current | | [id number] yr old male with COPD, current heavy [...] + + | 08/24/ | Telephone | Nephrology | Farrukh Acuna MD | | | 2020 | | | | | +--------+ + + + + | 08/09/ | Virtual | Nephrology | Farrukh Acuna MD | Persistent | | 2019 | Office | | | proteinuria (Primary | | | Visit | | | Dx); CKD (chronic | | | | | | kidney disease) | | | | | | stage 5, GFR less | | | | | | than 15 ml/min | | | | | | ([facility]); Anemia of | | | | | | chronic kidney | | | | | | failure, stage 5 | | | | | | ([facility]); Iron | | | | | | [...] | | | | | ([facility]); Secondary | | | | | | hyperparathyroidism | | | | | | ([facility]); Edema of | | | | | | lower extremity; | | | | | | Vitamin D deficiency | +--------+ + + + + | 08/09/ | Orders Only | Nephrology | Farrukh Acuna MD | Essential | | 2020 | | | | hypertension | | | | | | (Primary Dx); 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 | | 2019 | on | | Charlie Abdi | ER note 08/01/20) | | | | | Groundman/Lineman | | +--------+ + + + + | 08/01/ | Documentati | Nephrology | Alfred, | Mary ([facility] | | 2019 | on | | Charlie Abdi | order and new | | | | | Groundman/Lineman | procrit order sent | | | | | | to 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, with | | | | | | long-term current | | | | | | use of insulin | | | | | | ([facility]); Anemia of | | | | | | chronic kidney | | | | | | failure, stage 5 | | | | | | ([facility]); Persistent | | | | | | proteinuria; CKD | | | | | | (chronic kidney | | | | | | disease) stage 5, | | | | | | GFR less than 15 | | | | | | ml/min ([facility]) | +--------+ + + + + | 06/08/ | Telephone | Nephrology | Elmira Hoyt | Other | | 2020 | | | A, Medical | (Hospitalization ) | | | | | Groundman/Lineman | | +--------+ + + + + | 06/05/ | Virtual | Nephrology | Farrukh Acuna MD | CKD (chronic kidney | | 2020 | Office | | | disease) stage 5, | | | Visit | | | GFR less than 15 | | | | | | ml/min ([facility]) | | | | | | (Primary Dx); Anemia | | | | | | of chronic kidney | | | | | | failure, stage 5 | | | | | | ([facility]); Persistent | | | | | | proteinuria; | | | | | | Essential | | | | | | hypertension; Iron | | | | | | deficiency; | | | | | | Secondary | | | | | | hyperparathyroidism | | | | | | ([facility]); 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, with | | | | | | long-term current | | | | | | use of insulin | | | | | | ([facility]); Edema of | | | | | | lower extremity; | | | | | | Tobacco dependence | | | | | | syndrome | +--------+ + + + + | 06/05/ | Orders Only | Nephrology | Ami Cole, | CKD (chronic kidney | | 2019 | | | Patient Coordinator Front Desk | disease) stage 5, | | | | | | GFR less than 15 | | | | | | ml/min ([facility]) | | | | | | (Primary Dx); Anemia | | | | | | of chronic kidney | | | | | | failure, stage 5 | | | | | | ([facility]); Persistent | | | | | | proteinuria; | | | | | | Essential | | | | | | hypertension; Iron | | | | | | deficiency | +--------+ + + + + | 05/31/ | Documentati | Nephrology | Ami Cole, | Results | | 2019 | on | | Patient Coordinator Front Desk | (interpath-05/29/2020 | | | | | | ) | +--------+ + + + + from [...] + + + + Plan of Treatment +--------+ + + + + | Date | Type | Specialty | Care Team | Description | +--------+ + + + + | 10/30/ | Virtual | Nephrology | Farrukh Acuna MD | | | 2019 | Office | | [address] [facility] | | | | Visit | | [facility] | | | | | | [address] | | | | | | | | +--------+ + + + + + + + + + | Health Maintenance | Due Date | Last | Comments | | | | Done | | + + + + + | Medication | | | | | Management | 0 | | | + + [...] | 5 | | | | of 1 - PPSV23) | | | | + + + + + | Vaccine: Zoster (2 | | 09/07/20 | | | of 3) | 4 | 14 | | + + + + + | Hemoglobin A1c | | 07/14/20 | | | Screening | 8 | 18, | | | | | 10/27/20 | | | | | 17 | | + + + + + | Med Mgmt: HBA1C | | 07/14/20 | | | | 9 | 18, | | | | | 10/27/20 | | | | | 17 | | + + + + + | Adult Annual | | | | | Wellness Visit | 9 | | | + + + + + | Vaccine: Influenza | | 08/04/20 | | | (#1) | 0 | 19, | | | | | 08/04/20 | | | | | 19, | | | | | 07/30/20 | | | | | 18, | | | | | Addition | | | | | al | | | | | history | | | | | exists | | + + + + + | Med Mgmt: Cr | | 08/01/20 | | | | 1 | 20, | | | | | 05/29/20 | | | | | 20, | | | | | 03/21/20 | | | | | 20, | | | | | Addition | | | | | al | | | | | history | | | | | exists | | + + + + + | Med Mgmt: K | | 08/01/20 | | | | 1 | 20, | | | | | 05/29/20 | | | | | 20, | | | | | 03/21/20 | | | | | 20, | | | | | Addition | | | | | al | | | | | history | | | | | exists | | + + + + + | Med Mgmt: Na | | 08/01/20 | | | | 1 | 20, | | | | | 05/29/20 | | | | | 20, | | | | | 03/21/20 | | | | | 20, | | | | | Addition | | | | | al | | | | | history | | | | | exists | | + + + + + | Vaccine: | | 08/03/20 | | | Dtap/Tdap/Td (3 - | 6 | 16, | | | Td) | | 08/29/20 | | | | | 08 | | + + + + + [...] | LABS - EXTERNAL SCAN | | 05/29/2020 | | Results for this | | | | 12:00 AM | | procedure are in the | | | | PDT | | results section. | + +--------+ + + + | LABS - EXTERNAL SCAN | | 05/29/2020 | | Results for this [...] + + from Last 3 Months Results CBC with Manual Differential (08/01/2020) + + [...] Blood | + + Basic Metabolic Panel (08/01/2020) + + + [...] + | Blood | + + PTH + Calcium (05/29/2020) + + + [...] + + | Blood | + + LABS - EXTERNAL SCAN (05/29/2020 12:00 AM PDT)Only the most recent of [...] + | Urine | + + CBC with Differential (05/29/2020) [...] +--------+ +---------+--------+ | MEDICARE | MEDICA | [id number] | 07/01/20 | [phone] | | Medica | | | RE | | 05-Pre | 5 | | re | | | PART A | | sent | | | | | | AND B | | | | | | + +--------+ +--------+ +---------+--------+ | [employer] | MODA | [id number] | 07/04/20 | [phone] | | Medica | | MEDICAID HMO | HEALTH | | 19-Pre | 1 | | id | | | MDCD | | sent | | | | | | HMO [place] | | | | | | + +--------+ +--------+ +---------+--------+ | [employer] | MODA | [id number] | | [phone] | | Medica | | MEDICAID HMO [...] | | [address] | | [address] | al/Fam | | 1940 | [phone] | [place] | | | chula | | | 1 (Home) | [address] | + +--------+ +--------+ + + | Kavon Andujar | Person | Self | [birth year] | | [address] | | Arturo | irving/Scott | | 1940 | [phone] | [place] | | | chula | | | 1 (Home) | [address] | + +--------+ +--------+ + + Advance Directives + + + + + | Type | Date Recorded | Patient | Explanation | | | | Refinery Operator Reforming Unit | | + + + + + | Power of | | | | | Spray Pilot | | | | + + + [...]
--- OUTSIDE RECORDS SUMMARY | ~2020-08-24 | XMS | Encounter Summary ---
Demographics + + + | Address | [address] | | | [place] [address] | + + + | Home Phone [...] Team Providers + +------+ + | Care Street Light Servicer Name | Role | Phone | + +------+ + | Rahul Silva MD | PCP | | + +------+ + Encounter Details +--------+---------+ + + + | Date | Type | Department | Care Team | Description | +--------+---------+ + + + | 12/06/ | Office | [facility] | Farrukh Acuna MD | CKD (chronic kidney | | 2020 | Visit | NEPHROLOGY [place] | [address] [place] | disease) stage 5, | | | | [address] | [address] [place], [place] | GFR less than 15 | | | | [address] | [address] | ml/min (HCC) | | | | [place], [place] | | (Primary Dx); Anemia | | | | [address] | | of chronic kidney | | | | [phone] | | failure, stage 5 | | [...] Also: I see no need for acute ICE CREAM VAULT WORKER. I see no need to send him [...] 10/2016 with severe pneumonia, severe ZEKE; needed ICE CREAM VAULT WORKER for ~5 weeks b efore renal function recovery mid 12/2016. He was admitted to [facility] for 3 nights in July 2016 [...] 10/2016 with severe pneumonia, severe ZEKE; needed ICE CREAM VAULT WORKER for ~5 weeks b efore renal function [...] Also: I see no need for acute ICE CREAM VAULT WORKER. I see no need to send him [...] | Visit | | [facility] | | | | | | [address] | | | | | | | | +--------+ + + + + documented as of this encounter Visit Diagnoses + + | Diagnosis | + + | CKD (chronic kidney disease) stage 5, GFR less than 15 ml/min ([facility]) - Primary Chronic | | kidney disease, Stage V | + + | Anemia of chronic kidney failure, stage 5 ([facility]) | + + | Edema of lower [...]
--- OUTSIDE RECORDS SUMMARY | ~2020-08-24 | XMS | Encounter Summary ---
Demographics + + + | Address | [address] | | | [place] [address] | + + + | Home Phone [...] Team Providers + +------+ + | Care Break Out Worker Name | Role | Phone | + +------+ + | Rahul Silva MD | PCP | | + +------+ + Encounter Details +--------+ + + + + | Date | Type | Department | Care Team | Description | +--------+ + + + + | 07/06/ | Orders Only | [facility] | Farrukh Acuna MD | | | 2018 | | NE[place]HOLOGY [place] | [address] [facility] [address] | | | | | [address] | [address] [place], [place] | | | | | [address] [place], [place] | [address] | | | | | [address] | | | | | | [phone] | | | +--------+ + + + [...] | | | Visit | | [address] [place], [place] | | | | | | [address] | | | | | | | [...] | | | LAB | | | Congolese | | | | | + + [...]
--- OUTSIDE RECORDS SUMMARY | ~2020-08-24 | XMS | Encounter Summary ---
Demographics + + + | Address | [address] | | | [place] [address] | + + + | Home Phone [...] Team Providers + +------+ + | Care Pump Room Operator Name | Role | Phone | + +------+ + | Rahul Silva MD | PCP | | + +------+ + Encounter Details +--------+ + + + + | Date | Type | Department | Care Team | Description | +--------+ + + + + | 07/24/ | Orders Only | [facility] | Provider, | Chronic kidney | | 2019 | | SYSTEM GENERIC OP | MD [address] | disease, stage IV | | | | CONVERSION [address] | [address] | (severe) ([facility]); | | | | [address] [place], [place] | [place] [address] | Persistent | | | | [address] | | proteinuria; | | | | [phone] | | Secondary | | | | [...] 2019 | Office | | [address] [facility] | | | | Visit | | [address] [place] | | | | | | [address] | | | | | | | [...]
--- OUTSIDE RECORDS SUMMARY | ~2020-08-24 | XMS | Encounter Summary ---
Demographics + + + | Address | [address] | | | [place] [address] | + + + | Home Phone [...] Providers + +------+ + | Care Management Associate Name | Role | Phone | [...] | | | [address] | [place] [address] | | | | | [place] [address] | | | | | | [phone] | | | +--------+ + + + [...] 2019 | Office | | [address] [facility] | | | | Visit | | [address] [facility] | | | | | | [address] | | | | | | | [...]
--- OUTSIDE RECORDS SUMMARY | ~2020-08-24 | XMS | Encounter Summary ---
Demographics + + + | Address | [address] | | | [place] [address] | + + + | Home Phone [...] Team Providers + +------+ + | Care Morning News Producer Name | Role | Phone | + +------+ + | Rahul Silva MD | PCP | | + +------+ + Encounter Details +--------+ + + + + | Date | Type | Department | Care Team | Description | +--------+ + + + + | 01/26/ | Orders Only | [facility] | Conversion | | | 2014 | | [facility] | Transaction, | | | | | [address] | Provider Unknown | | | | | [address] [place], [place] | [phone] | | | | | [address] | | | | | | [phone] | | | +--------+ + + + [...] [place] | | | | | | [address] | | | | | | | [...]
--- OUTSIDE RECORDS SUMMARY | ~2020-08-24 | XMS | Encounter Summary ---
Demographics + + + | Address | [address] | | | [place] [address] | + + + | Home Phone [...] | Transaction, | | | | | [place], [place] | Provider Unknown | | | | | [address] | [phone] | | | | | [phone] | | | +--------+ + + + [...] 2020 | Office | | [address] [facility] | | | | Visit | | [address] [place], [place] | | | | | | [address] | | | | | | | [...]
--- OUTSIDE RECORDS SUMMARY | ~2020-08-24 | XMS | Encounter Summary ---
Demographics + + + | Address | [address] | | | [place] [address] | + + + | Home Phone [...] Team Providers + +------+ + | Care Functional Tester Typewriters Name | Role | Phone | + +------+ + | Rahul Silva MD | PCP | | + +------+ + Encounter Details +--------+ + + + + | Date | Type | Department | Care Team | Description | +--------+ + + + + | 07/11/ | Orders Only | [facility] | Farrukh Acuna MD | | | 2013 | | NEPHROLOGY [place] | [address] [place] | | | | | [address] [place] | [address] [place], [place] | | | | | [address] [place], [place] | [address] | | | | | [address] | | | | | | [phone] | | | +--------+ + + + [...] 2019 | Office | | [address] [facility] | | | | Visit | | [address] [facility] | | | | | | [address] | | | | | | | [...] | | | LAB | | | Burmese | | | | | + + [...] | + +-------+ + + + | Non- | 3.44 | 10 | EXTERNAL | | | Red Blood | | | LAB | | | Cells | | | | | | Counted | | | | | + +-------+ + + + | Hemoglobin | 10.6 | g/dL | EXTERNAL | [...]
--- OUTSIDE RECORDS SUMMARY | ~2020-08-24 | XMS | Encounter Summary ---
Demographics + + + | Address | [address] | | | [place] [address] | + + + | Home Phone [...] Providers + +------+ + | Care Veterinary Assistant Name | Role | Phone | [...] [address] | | | | | [place], [place] | [place], [place] | | | | | [address] | [address] | | | | | [phone] | [phone] | | | | | | | [...] | | | Visit | | [address] [place] | | | | | | [address] | | | | | | | [...]
--- OUTSIDE RECORDS SUMMARY | ~2020-08-24 | XMS | Encounter Summary ---
Demographics + + + | Address | [address] | | | [place] [address] | + + + | Home Phone [...] Providers + +------+ + | Care Plant Sciences Professor Name | Role | Phone | + +------+ + | Rahul Silva MD | PCP | | + +------+ + Encounter Details +--------+ + + + + | Date | Type | Department | Care Team | Description | +--------+ + + + + | 05/27/ | Orders Only | [facility] | Farrukh Acuna MD | | | 2019 | | NEPHROLOGY [place] | [address] [place] | | | | | [address] [place] | [address] [place], [place] | | | | | [address] [place], [place] | [address] | | | | | [address] | | | | | | [phone] | | | +--------+ + + + [...] 2020 | Office | | [address] [facility] | | | | Visit | | [address] [place], [place] | | | | | | [address] | | | | | | | [...] | | | LAB | | | Jamaican | | | | | + + [...]
--- OUTSIDE RECORDS SUMMARY | ~2020-08-24 | XMS | Encounter Summary ---
Demographics + + + | Address | [address] | | | [place] [address] | + + + | Home Phone [...] Team Providers + +------+ + | Care Driver/Refuse Collector Name | Role | Phone | + [...] [address] | | | | | [place], [place] | [place], [place] | | | | | [address] | [address] | | | | | [phone] | [phone] | | | | | | | [...] | | | Visit | | [address] [place] | | | | | | [address] | | | | | | | [...]
--- OUTSIDE RECORDS SUMMARY | ~2020-08-24 | XMS | Encounter Summary ---
Demographics + + + | Address | [address] | | | [place] [address] | + + + | Home Phone [...] Providers + +------+ + | Care Industrial Technologist Name | Role | Phone | [...] [address] | | | | | [place], [place] | [place], [place] | | | | | [address] | [address] | | | | | [phone] | [phone] | | | | | | | [...] | | | Visit | | [address] [place] | | | | | | [address] | | | | | | | [...]
--- OUTSIDE RECORDS SUMMARY | ~2020-08-24 | XMS | Encounter Summary ---
Demographics + + + | Address | [address] | | | [place] [address] | + + + | Home Phone [...] Team Providers + +------+ + | Care Variety Performer Name | Role | Phone | [...] [address] | | | | | [place], [place] | [place], [place] | | | | | [address] | [address] | | | | | [phone] | [phone] | | | | | | | [...] 2020 | Office | | [address] [facility] | | | | Visit | | [address] [place] | | | | | | [address] | | | | | | | [...]
--- OUTSIDE RECORDS SUMMARY | ~2020-08-24 | XMS | Encounter Summary ---
Demographics + + + | Address | [address] | | | [place] [address] | + + + | Home Phone [...] Providers + +------+ + | Care Mixer Tender Name | Role | Phone | [...] [address] | | | | | [place], [place] | [place], [place] | | | | | [address] | [address] | | | | | [phone] | [phone] | | | | | | | [...] 2020 | Office | | [address] [facility] | | | | Visit | | [address] [place] | | | | | | [address] | | | | | | | [...]
--- OUTSIDE RECORDS SUMMARY | ~2020-08-24 | XMS | Encounter Summary ---
Demographics + + + | Address | [address] | | | [place] [address] | + + + | Home Phone [...] [place] | | | | | [address] | | + + + + + Care Team Providers + +------+ + | Care Food Service Worker Name | Role | Phone | [...] [id number] | | | | | | [place], [place] | | | | | | [address] | | | | | | [phone] | | | +--------+ + + + [...] | + + + + + | [facility] | [address] | [place] [address] | | | PATHOLOGY | [address] | | | + + + + + SURGICAL PATHOLOGY (12/28/1996) + + + + + + | Component | Value | Ref Range | Performed | Pathologist | | | | | At | Signature | + + + + + + | SURGICAL | SOURCE OF SPECIMEN: SEE | | [facility] | | | PATHOLOGY [...] [facility]ICAL [facility]ENTER | [address] | [place] [address] | | | PATHOLOGY | [address] | | | + + + + + documented in this encounter Visit Diagnoses Not on filedocumented in this encounter"
--- OUTSIDE RECORDS SUMMARY | ~2020-08-24 | XMS | Encounter Summary ---
Demographics + + + | Address | [address] | | | [place] [address] | + + + | Home Phone [...] + + | 11/17/ | Telephone | [facility] | Farrukh Acuna MD | Other (Patient call | | 2019 | | NEPHROLOGY [place] | [address] [place] | ) | | | | [address] [place] | [address] [facility] [place] | | | | | [facility] [place] | [address] | | | | | [address] | | | | | | [phone] | | | +--------+ + + + [...] Miscellaneous Notes Telephone Encounter - Trinidad Simon Appliance Counselor - 12/17/2019 10:24 AM PSTDr. A koum aware elephone Encounter - Trinidad Simon Appliance Counselor - 11/17/2019 2:11 PM PS TPatients daughter is concerned because her dad has been having some confusion. She states t hat the ER told her that he may have had a "small stroke". She states that patient was instr ucted to take Asprin after the hospital stay. She would just like to let Dr. Acuna know. El ectronically signed by Trinidad Simon Appliance Counselor at 11/17/2019 2:15 PM PSTdocum ented in [...] | | | Visit | | [address] [place], [place] | | | | | | [address] | | | | | | | | +--------+ + + + + documented as of this encounter Visit Diagnoses Not on filedocumented in this encounter
--- OUTSIDE RECORDS SUMMARY | ~2020-08-24 | XMS | Encounter Summary ---
Demographics + + + | Address | [address] | | | [place] [address] | + + + | Home Phone [...] Team Providers + +------+ + | Care Doll Repairer Name | Role | Phone | [...] + + | 08/01/ | Documentati | [facility] | Alfred, | Other (IV fersonyaeme | | 2020 | on | NEPHROLOGY [place] | [facility] | order and new | | | | [address] [place] | Weaving Instructor | procrit order sent | | | | [address] [place], [place] | | to [facility] Shannan IVT | | | | [address] | | confirmation | | | | [phone] | | received 07/28) | +--------+ + [...] Office | | [address] [facility] | | | | Visit | | [address] [place] | | | | | | [address] | | | | | | | | +--------+ + + + + documented as of this encounter Visit Diagnoses Not on filedocumented in this encounter"
--- OUTSIDE RECORDS SUMMARY | ~2020-08-24 | XMS | Encounter Summary ---
Demographics + + + | Address | [address] | | | [place] [address] | + + + | Home Phone [...] Team Providers + +------+ + | Care Roofer Vinyl Coating Name | Role | Phone | + +------+ + | Rahul Silva MD | PCP | | + +------+ + Encounter Details +--------+ + + + + | Date | Type | Department | Care Team | Description | +--------+ + + + + | 10/28/ | Orders Only | [facility] | Conversion | | | 2016 | | NEPHROLOGY [facility] | Transaction, | | | | | [address] | Provider Unknown | | | | | [address] [place] | | | | | | [address] | (Fax) | | | | | [phone] | | | +--------+ + + + [...] | | Visit | | [facility] | | | | | [address] | | | | | | | [...]
--- OUTSIDE RECORDS SUMMARY | ~2020-08-24 | XMS | Encounter Summary ---
Demographics + + + | Address | [address] | | | [place] [address] | + + + | Home Phone [...] Author + + + | Author | [facility] | + + + | Organization | [facility] | + + + | Address | Unknown | + + + | Phone | Unavailable | + + + Support + + + + + | Name | Relationship | Address | Phone | + + + + + | Darci Andujar | VALERIE | [place] | | | | | [address] | | + + + + + Care Team Providers + +------+ + | Care Commutator Tester Name | Role | Phone | [...] Vyas | | | | | | [address] | | | | | | [place], [place] | | | | | | [address] | | | | | | [phone] | | | +--------+ + + + [...] as of this encounter Progress Notes Interface, Renal Nurse In - 01/22/2007 3:04 AM PST [facility] and [address] [address] or June 07, 1997 Pravin VALLES MD [address] [facility] [place] [address] RE:Kavon Andujar MR#:[id number] Valles: I saw Kavon Andujar in the Neurology Clinic today and have enclosed a copy of my note. 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 He [...] over the telephone. Sincerely, Michelle Landon M.D. Food And Nutrition Services Supervisor, Neurology JINNY/ C: 06/13/97 cc: Alina Moise M.D. Division of Neurosurgery [facility] Robert Carlson M.D. Division of Vascular Surgery [facility] documented in this encounter Plan of Treatment Not on filedocumented as of this encounter Visit Diagnoses Not on filedocumented in this encounter
--- OUTSIDE RECORDS SUMMARY | ~2020-08-24 | XMS | Encounter Summary ---
Demographics + + + | Address | [address] | | | [place] [address] | + + + | Home Phone [...] Team Providers + +------+ + | Care Safe And Vault Mechanic Name | Role | Phone | [...] + + | 07/30/ | Telephone | [facility] | Brian Orosco MD | Establish Care | | 2019 | | VASCULAR SURGERY | [address] | (Referral) | | | | [address] [place] | [place], [place] | | | | | [place], [place] | [address] | | | | | [address] | [phone] | | | | | [phone] | | | +--------+ + + + [...] transfer the call to a p erikavidixie patient coordinator front desk was caller made aware that if at [...] 2019 | Office | | [address] [facility] | | | | Visit | | [address] [place], [place] | | | | | | [address] | | | | | | | | +--------+ + + + + documented as of this encounter Visit Diagnoses Not on filedocumented in this encounter"
--- OUTSIDE RECORDS SUMMARY | ~2020-08-24 | XMS | Encounter Summary ---
Demographics + + + | Address | [address] | | | [place] [address] | + + + | Home Phone [...] Team Providers + +------+ + | Care Condenser Operator Name | Role | Phone | [...] [address] | | | | | [place], [place] | [place], [place] | | | | | [address] | [address] | | | | | [phone] | [phone] | | | | | | | [...] 2020 | Office | | [address] [facility] | | | | Visit | | [address] [place] | | | | | | [address] | | | | | | | [...]
--- OUTSIDE RECORDS SUMMARY | ~2020-08-24 | XMS | Encounter Summary ---
Demographics + + + | Address | [address] | | | [place] [address] | + + + | Home Phone [...] Providers + +------+ + | Care Hay Sorter Name | Role | Phone | [...] + + | 06/08/ | Telephone | [facility] | LaiElmira rodas | Other | | 2020 | | NEPRHOLOGY [place] | A, Medical | (Hospitalization ) | | | | [address] | Bobbin Winder Tender | | | | | [address] [place], [place] | | | | | | [address] | | | | | | [phone] | | | +--------+ + + + [...] Miscellaneous Notes Telephone Encounter - Elmira Hoyt, Staff Electronic Warfare Officer - 06/08/2020 10:11 AM PDTPati ents daughter called to inform us that her father was taken by ambulance this morning to [facility]. He was suffering from confusion and slurred [...] 2019 | Office | | [address] [facility] | | | | Visit | | [address] [place], [place] | | | | | | [address] | | | | | | | | +--------+ + + + + documented as of this encounter Visit Diagnoses Not on filedocumented in this encounter"
--- OUTSIDE RECORDS SUMMARY | ~2020-08-24 | XMS | Encounter Summary ---
Demographics + + + | Address | [address] | | | [place] [address] | + + + | Home Phone [...] Providers + +------+ + | Care Head Sawyer Automatic Name | Role | Phone | [...] [address] | | | | | [place], [place] | [place], [place] | | | | | [address] | [address] | | | | | [phone] | [phone] | | | | | | | [...] 2020 | Office | | [address] [facility] | | | | Visit | | [address] [place] | | | | | | [address] | | | | | | | [...]
--- OUTSIDE RECORDS SUMMARY | ~2020-08-24 | XMS | Encounter Summary ---
Demographics + + + | Address | [address] | | | [place] [address] | + + + | Home Phone [...] Providers + +------+ + | Care Continuous Pickling Line Pickler Name | Role | Phone | + [...] [address] | | | | | [place], [place] | [place], [place] | | | | | [address] | [address] | | | | | [phone] | [phone] | | | | | | | [...] | | | Visit | | [address] [place] | | | | | | [address] | | | | | | | [...]
--- OUTSIDE RECORDS SUMMARY | ~2020-08-24 | XMS | Encounter Summary ---
Demographics + + + | Address | [address] | | | [place] [address] | + + + | Home Phone [...] Providers + +------+ + | Care Molder Trimmer Name | Role | Phone | [...] | | | | disease not | [place], | [place], [place] | | | | | on chronic | [place] [address] | [address] | | | | | dialysis | Phone: | Phone: | | | | | ([facility]) | [phone] | [phone] | | | | | Hypertension | Fax: | Fax: | | | | | , | [phone] | [phone] | | | | | unspecified | | | | | | | type | | | +--------+ + + + + + Encounter Details +--------+ + + + + | Date | Type | Department | Care Team | Description | +--------+ + + + + | 07/28/ | Orders Only | [facility] | Farrukh Acuna MD | Iron deficiency | | 2019 | | NEPHROLOGY [place] | [address] [place] | (Primary Dx); Anemia | | | | [address] [place] | [address] [place], [place] | of chronic kidney | | | | [address] [place], [place] | [address] | failure, stage 5 | | | | [address] | | ([facility]); Stage 5 | | | | [phone] | | chronic kidney | | | | | | disease not on | | | | | | chronic dialysis | | | | | | ([facility]); Secondary | | | | | | hyperparathyroidism | | | | | | ([facility]); Hypertension, | | | | [...] | | | Visit | | [address] [place], [place] | | | | | | [address] | | | | | | | [...] until 07/28/2020 | | | | | ([facility]) Hypertension, | | | | [...] | 07/28/2020 | | | | | ([facility]) Hypertension, | | | | [...] | | | ([facility]) Hypertension, | | | | [...] | | | ([facility]) Hypertension, | | | | | | unspecified type | | + +------+--------+ + + | Parathyroid Hormone, | Lab | Routin | Stage 5 chronic | Expected: | | Intact | | e | kidney disease not | 09/27/2019, Expires: | | | | | on chronic dialysis | 07/28/2020 | | | | | ([facility]) Secondary | | | | | | hyperparathyroidism | | | | | | ([facility]) Hypertension, | | | | [...] chronic | Ordered: 07/28/2019 | | to [facility] | Referral | e | kidney disease not | | | Surgery | | | on chronic dialysis | | | | | | ([facility]) Hypertension, | | | | [...]
--- OUTSIDE RECORDS SUMMARY | ~2020-08-24 | XMS | Encounter Summary ---
Demographics + + + | Address | [address] | | | [place] [address] | + + + | Home Phone [...] + +------+ + | Care Interactive Media Director Name | Role | Phone | [...] + + | 12/21/ | Documentati | [facility] | Alfred, | Other (Ramone live | | 2020 | on | NEPHROLOGY [place] | Charlie Abdi | order sent | | | | [address] [facility] [address] | Ribbon Inker | confirmation | | | | [address] [place], [place] | | received.) | | | | [address] | | | | | | [phone] | | | +--------+ + + + [...] [place] | | | | | | [address] | | | | | | | | +--------+ + + + + documented as of this encounter Visit Diagnoses Not on filedocumented in this encounter"
--- OUTSIDE RECORDS SUMMARY | ~2020-08-24 | XMS | Encounter Summary ---
Demographics + + + | Address | [address] | | | [place] [address] | + + + | Home Phone [...] Providers + +------+ + | Care Retail Coverage Merchandiser Name | Role | Phone | + +------+ + | Mehrdad Bergman | PCP | | + +------+ + Encounter Details +--------+ + + + + | Date | Type | Department | Care Team | Description | +--------+ + + + + | 06/05/ | Orders Only | [facility] | Ami Cole, | CKD (chronic kidney | | 2019 | | NEPHROLOGY [place] | Dip Stand Loader | disease) stage 5, | | | | [address] | | GFR less than 15 | | | | [address] | | ml/min ([facility]) | | | | [place], [place] | | (Primary Dx); Anemia | | | | [address] | | of chronic kidney | | | | [phone] | | failure, stage 5 | | [...] as of this encounter Progress Ami Pérez, Dip Stand Loader - 06/05/2020 2:[address] [...] [place] | | | | | | [address] | | | | | | | [...]
--- OUTSIDE RECORDS SUMMARY | ~2020-08-24 | XMS | Encounter Summary ---
Demographics + + + | Address | [address] | | | [place] [address] | + + + | Home Phone [...] Providers + +------+ + | Care Manager Heavy Equipment Name | Role | Phone | + +------+ + | Rahul Silva MD | PCP | | + +------+ + Encounter Details +--------+ + + + + | Date | Type | Department | Care Team | Description | +--------+ + + + + | 05/27/ | Orders Only | [facility] | Farrukh Acuna MD | | | 2017 | | NEPHROLOGY [place] | [address] [place] | | | | | [address] [place] | [address] [place], [place] | | | | | [address] [place], [place] | [address] | | | | | [address] | | | | | | [phone] | | | +--------+ + + + [...] | | | Visit | | [address] [place], [place] | | | | | | [address] | | | | | | | [...] | | | LAB | | | Egyptian | | | | | + + [...]
--- OUTSIDE RECORDS SUMMARY | ~2020-08-24 | XMS | Encounter Summary ---
Demographics + + + | Address | [address] | | | [place] [address] | + + + | Home Phone [...] Providers + +------+ + | Care Advanced Manufacturing Vice President Name | Role | Phone | + +------+ + PCP | Unavailable | + +------+ + Encounter Details +--------+ + + + + | Date | Type | Department | Care Team | Description | +--------+ + + + + | 07/18/ | [facility] | [facility] | Nelson Lutz MD | | | 2002 | Encounter | MED CTR GENERIC OP | [address], [place] | | | | | CONV DEPT [address] | [address] | | | | | [place], | [address] | | | | | [place] [address] | | | | | | [phone] | | | +--------+ + + + [...] 2019 | Office | | [address] [facility] | | | | Visit | | [address] [place] | | | | | | [address] | | | | | | | | +--------+ + + + + documented as of this encounter Visit Diagnoses Not on filedocumented in this encounter"
--- OUTSIDE RECORDS SUMMARY | ~2020-08-24 | XMS | Encounter Summary ---
Demographics + + + | Address | [address] | | | [place] [address] | + + + | Home Phone [...] Team Providers + +------+ + | Care Carbonator Name | Role | Phone | + [...] | | | [address] [place] | [place] [address] | | | | | [place] [address] | | | | | | [phone] | | | +--------+ + + + [...] [place] | | | | | | [address] | | | | | | | [...]
--- OUTSIDE RECORDS SUMMARY | ~2020-08-24 | XMS | Encounter Summary ---
Demographics + + + | Address | [address] | | | [place] [address] | + + + | Home Phone [...] Team Providers + +------+ + | Care Developmental Services Worker Name | Role | Phone | + +------+ + | Mehrdad Bergman | PCP | | + +------+ + Encounter Details +--------+ + + + + | Date | Type | Department | Care Team | Description | +--------+ + + + + | 07/27/ | Orders Only | [facility] | Farrukh Acuna MD | Essential | | 2020 | | NEPHROLOGY [place] | [address] [place] | hypertension | | | | [address] [place] | [address] [place], [place] | (Primary Dx); Type 2 | | | | [address] [place], [place] | [address] | diabetes mellitus | | | | [address] | | with diabetic | | | | [phone] | | nephropathy, with | | | | | | long-term current | | | | | | use of insulin | | | | | | ([facility]); Anemia of | | | | | | chronic kidney | | | | | | failure, stage 5 | | | | | | ([facility]); Persistent | | | | | [...] | | | Visit | | [address] [place] | | | | | | [address] | | | | | | | | +--------+ + + + + documented as of this encounter Visit Diagnoses + + | Diagnosis | + + | Essential hypertension - Primary Unspecified essential hypertension | + + | Type 2 diabetes mellitus with diabetic nephropathy, with long-term current use of | | insulin ([facility]) | + + | Anemia of [...]
--- OUTSIDE RECORDS SUMMARY | ~2020-08-24 | XMS | Encounter Summary ---
Demographics + + + | Address | [address] | | | [place] [address] | + + + | Home Phone [...] [place] | | | | | [address] | | + + + + + Care Team Providers + +------+ + | Care Alterations Tailor Name | Role | Phone | + [...] | | [address] | [place] L[place]pez [place], | | | | | Emelyn [place] | [place] [address] | | | | | [place] | [phone] | | | | | [address] | | | | | | [phone] | | | +--------+ + + + [...] | | | | | | a Oakfield-Lupe catheter | | | | | | [...] | | | | placement of a Oakfield-Lupe | | | | | | catheter. CHEST, | | | | | | SINGLE AP PORTABLE: | | | | | | 03-31-93 AT 1000 HOURS | | | | | | FINDINGS: Since the | | | | | | prior study, the | | | | | | Oakfield-Lupe catheter has | | | | | [...] IMPRESSION: | | | | | | Oakfield-Lupe catheter | | | | | | [...] The | | | | | | Oakfield-Lupe catheter | | | | | | [...] and | | | | | | Oakfield-Lupe catheter | | | | | | [...] endotracheal | | | | | | tube,Oakfield-Lupe catheter | | | | | | [...] + + | [facility] | [address] | [place] [address] | | | PATHOLOGY | [place] | | | + + + + + documented in this encounter Visit Diagnoses Not on filedocumented in this encounter"
--- OUTSIDE RECORDS SUMMARY | ~2020-08-24 | XMS | Encounter Summary ---
Demographics + + + | Address | [address] | | | [place] [address] | + + + | Home Phone [...] Providers + +------+ + | Care Community Arts Worker Name | Role | Phone | + +------+ + | Mehrdad Bergman | PCP | | + +------+ + Encounter Details +--------+ + + + + | Date | Type | Department | Care Team | Description | +--------+ + + + + | 08/09/ | Virtual | [facility] | Farrukh Acuna MD | Persistent | | 2020 | Office | NEPHROLOGY [place] | [address] [place] | proteinuria (Primary | | | Visit | [address] | [address] [place], [place] | Dx); CKD (chronic | | | | [address] | [address] | kidney disease) | | | | [place], [place] | | stage 5, GFR less | | | | [address] | | than 15 ml/min | | | | [phone] | | ([facility]); Anemia of | | | | | | chronic kidney | | | | | | failure, stage 5 | | | | | | ([facility]); Iron | | | | | | [...] | ([facility]); Secondary | | | | | | hyperparathyroidism | | | | | | ([facility]); Edema of | | | | | [...] 03/01/19. He was in the ED at [facility] on 08/01/20 with chest pain, non-cardiac in origin per records that I reviewed from the ED. He was in the ED at [facility] in late 05/2020 with CP & [...] 10/2016 with severe pneumonia, severe ZEKE; needed DEALER ACCOUNT MANAGER for ~5 weeks b efore renal function recovery mid 12/2016. He was admitted to [facility] for 3 nights in July 2016 [...] 10/2016 with severe pneumonia, severe ZEKE; needed DEALER ACCOUNT MANAGER for ~5 weeks b efore renal [...] ALEXI. I see no need for acute DEALER ACCOUNT MANAGER. I see no need to send [...] or concerns. Truly yours, Farrukh Acuna MD [facility], [facility] This exam was initially conducted via a secure 256-bit AES encrypted bidirectional video se ssion. You have chosen to receive care through the use of telemedicine. Telemedicine enables [facility] providers at different locations to provide [...] | | | Visit | | [address] [facility] | | | | | | [address] | | | | | | | [...] of chronic kidney failure, stage 5 ([facility]) | + + | Iron deficiency Other [...]
--- OUTSIDE RECORDS SUMMARY | ~2020-08-24 | XMS | Encounter Summary ---
Demographics + + + | Address | [address] | | | [place] [address] | + + + | Home Phone [...] Team Providers + +------+ + | Care Aeronautics Commission Director Name | Role | Phone | + +------+ + | Mehrdad Bergman | PCP | | + +------+ + Encounter Details +--------+ + + + + | Date | Type | Department | Care Team | Description | +--------+ + + + + | 03/27/ | Virtual | [facility] | Farrukh Acuna MD | CKD (chronic kidney | | 2019 | Office | NEPHROLOGY [place] | [address] [place] | disease) stage 5, | | | Visit | [address] | [address] [place], [place] | GFR less than 15 | | | | [address] | [address] | ml/min (HCC) | | | | [place], [place] | | (Primary Dx); Anemia | | | | [address] | | of chronic kidney | | | | [phone] | | failure, stage 5 | | [...] before he comes back in 2 m [facility]. documented in this encounter Progress Notes [...] 10/2016 with severe pneumonia, severe ZEKE; needed HOSPITALITY JOB TITLES for ~5 weeks b efore renal function recovery mid 12/2016. He was admitted to [facility] for 3 nights in July [...] 10/2016 with severe pneumonia, severe ZEKE; needed HOSPITALITY JOB TITLES for ~5 weeks b efore renal function [...] Also: I see no need for acute HOSPITALITY JOB TITLES. I see no need to send him [...] or concerns. Truly yours, Farrukh Acuna MD [facility], [facility] This exam was initially conducted via a secure 256-bit AES encrypted bidirectional video se ssion. You have chosen to receive care through the use of telemedicine. Telemedicine enables [facility] care providers at different locations to provide [...] 2019 | Office | | [address] [facility] | | | | Visit | | [address] [place], [place] | | | | | | [address] | | | | | | | [...]
--- OUTSIDE RECORDS SUMMARY | ~2020-08-24 | XMS | Encounter Summary ---
Demographics + + + | Address | [address] | | | [place] [address] | + + + | Home Phone [...] Team Providers + +------+ + | Care Portfolio Mgr Name | Role | Phone | + +------+ + | Rahul Silva MD | PCP | | + +------+ + Encounter Details +--------+ + + + + | Date | Type | Department | Care Team | Description | +--------+ + + + + | 06/15/ | Orders Only | [facility] | Conversion | | | 2019 | | NEPHROLOGY [place] | Transaction, | | | | | [address] | Provider Unknown | | | | | [address] [place] | | | | | | [address] | (Fax) | | | | | [phone] | | | +--------+ + + + [...] | | | Visit | | [address] [place], [place] | | | | | | [address] | | | | | | | [...]
--- OUTSIDE RECORDS SUMMARY | ~2020-08-24 | XMS | Encounter Summary ---
Demographics + + + | Address | [address] | | | [place] [address] | + + + | Home Phone [...] [place] | | | | | [address] | | + + + + + Care Team Providers + +------+ + | Care Foxing Cutting Machine Operator Name | Role | [...] | | | [facility], [address] | | | | | | [place], [place] | | | | | | [address] | | | | | | [phone] | | | +--------+ + + + [...] as of this encounter Progress Notes Interface, Blue Leather Setter In - 12/25/2006 5:00 AM [facility] DATE: 03/16/98 PLASTIC SURGERY CLINIC [...] in the near future. Galo Arora M.D. Geriatric Assistant, Division of Plastic & Reconstructive Surgery AYDEE/alfred documented in this encounter Plan of Treatment Not on filedocumented as of this encounter Visit Diagnoses Not on filedocumented in this encounter"
--- OUTSIDE RECORDS SUMMARY | ~2020-08-24 | XMS | Encounter Summary ---
Demographics + + + | Address | [address] | | | [place] [address] | + + + | Home Phone [...] Providers + +------+ + | Care Balance Clerk Name | Role | Phone | [...] | Transaction, | | | | | [place], [place] | Provider Unknown | | | | | [address] | [phone] | | | | | [phone] | | | +--------+ + + + [...] 2020 | Office | | [address] [facility] | | | | Visit | | [address] [place] | | | | | | [address] | | | | | | | [...]
--- OUTSIDE RECORDS SUMMARY | ~2020-08-24 | XMS | Encounter Summary ---
Demographics + + + | Address | [address] | | | [place] [address] | + + + | Home Phone [...] [place] | | | | | [address] | | + + + + + [...] | | 1997 | Only | | [phone] | | +--------+ + + + + [...] | | | | | | 12/22/96 [id number] hours. | | | | | | [...] | + +---------+ + + | [facility] DEPARTMENT OF | | | | [...] | | | | | | | [id number] | | | | | | SPINE, [...]
--- OUTSIDE RECORDS SUMMARY | ~2020-08-24 | XMS | Encounter Summary ---
Demographics + + + | Address | [address] | | | [place] [address] | + + + | Home Phone [...] Team Providers + +------+ + | Care Prosthetic Dentist Name | Role | Phone | + [...] [address] | | | | | [place], [place] | [place], [place] | | | | | [address] | [address] | | | | | [phone] | [phone] | | | | | | | [...] | | | Visit | | [address] [place] | | | | | | [address] | | | | | | | [...] TAE WATKINS, LEONORA, , , , , HE, | EXTERNAL LAB | + + + + +---------+ + + | Performing | Address | City/State/Zipcode | Phone Number | | Organization | | | | + +---------+ + + | EXTERNAL LAB | | | | + +---------+ + + documented in this encounter Visit Diagnoses Not on filedocumented in this encounter"
--- OUTSIDE RECORDS SUMMARY | ~2020-08-24 | XMS | Encounter Summary ---
Demographics + + + | Address | [address] | | | [place] [address] | + + + | Home Phone [...] | | | [address] | [place] [address] | | | | | [place] [address] | | | | | | [phone] | | | +--------+ + + + [...] | [address] [facility] [address] | | | | Visit | | [address] [place] | | | | | | [address] | | | | | | | [...]
--- OUTSIDE RECORDS SUMMARY | ~2020-08-24 | XMS | Encounter Summary ---
Demographics + + + | Address | [address] | | | [place] [address] | + + + | Home Phone [...] Providers + +------+ + | Care Psychiatric Clinician Name | Role | Phone | + +------+ + | Rahul Silva MD | PCP | | + +------+ + Encounter Details +--------+ + + + + | Date | Type | Department | Care Team | Description | +--------+ + + + + | 05/27/ | Orders Only | [facility] | Conversion | | | 2019 | | NEPHROLOGY [place] | Transaction, | | | | | [address] | Provider Unknown | | | | | [address] [place] | | | | | | [address] | (Fax) | | | | | [phone] | | | +--------+ + + + [...] 2019 | Office | | [address] [facility] | | | | Visit | | [address] [facility] | | | | | | [address] | | | | | | | [...]
--- OUTSIDE RECORDS SUMMARY | ~2020-08-24 | XMS | Encounter Summary ---
Demographics + + + | Address | [address] | | | [place] [address] | + + + | Home Phone [...] Providers + +------+ + | Care Retail Loan Originator Name | Role | Phone | + [...] + + | 02/07/ | Refill | [facility] | Farrukh Acuna MD | Medication Refill | | 2020 | | NEPHROLOGY [place] | [address] [place] | | | | | [address] | [address] [facility] [place] | | | | | [facility] [address] | [id number] | | | | | [place], [place] | | | | | | [address] | | | | | | [phone] | | | +--------+--------+ + + + [...] ddendum Note - Kanwal Sampson Medica l Groundskeeping Maintenance - 02/08/2020 5:22 PM PDT Addended by: [...] 2020 | Office | | [address] [facility] | | | | Visit | | [address] [place] | | | | | | [address] | | | | | | | | +--------+ + + + + documented as of this encounter Visit Diagnoses + + | Diagnosis | + + | Essential hypertension - Primary Unspecified essential hypertension | + + documented in this encounter"
--- OUTSIDE RECORDS SUMMARY | ~2020-08-24 | XMS | Encounter Summary ---
Demographics + + + | Address | [address] | | | [place] [address] | + + + | Home Phone [...] Team Providers + +------+ + | Care Cork Floor Installer Name | Role | Phone | + +------+ + | Rahul Silva MD | PCP | | + +------+ + Encounter Details +--------+ + + + + | Date | Type | Department | Care Team | Description | +--------+ + + + + | 08/13/ | Orders Only | [facility] | Farrukh Acuna MD | | | 2017 | | NEPHROLOGY [place] | [address] [place] | | | | | [address] [place] | 160 [place], [place] | | | | | [address] [place], [place] | [address] | | | | | [address] | | | | | | [phone] | | | +--------+ + + + [...] | | | Visit | | 160 [place], [place] | | | | | | [address] | | | | | | | [...] | | | LAB | | | Malian | | | | | + + [...]
--- OUTSIDE RECORDS SUMMARY | ~2020-08-24 | XMS | Encounter Summary ---
Demographics + + + | Address | [address] | | | [place] [address] | + + + | Home Phone [...] Team Providers + +------+ + | Care Back Tender Cloth Printing Name | Role | Phone | + [...] + + | 12/07/ | Telephone | [facility] | Farrukh Acuna MD | Other (Blood | | 2020 | | NEPHROLOGY [place] | [address] [place] | pressure concern. ) | | | | [address] [place] | 160 [facility] [place] | | | | | 160 [place], [place] | [id number] | | | | | [address] | | | | | | [phone] | | | +--------+ + + + [...] Miscellaneous Notes Telephone Encounter - Trinidad Simon Stock Dealer - 12/07/2019 5:29 PM PSTPatie nts daughter [...] | | | Visit | | 160 [place], [place] | | | | | | [address] | | | | | | | | +--------+ + + + + documented as of this encounter Visit Diagnoses Not on filedocumented in this encounter"
--- OUTSIDE RECORDS SUMMARY | ~2020-08-24 | XMS | Encounter Summary ---
Demographics + + + | Address | [address] | | | [place] [address] | + + + | Home Phone [...] Team Providers + +------+ + | Care Component Assembler Name | Role | Phone | [...] | | [address] [place] | [place] [address] | | | | | [place] [address] | | | | | | [phone] | | | +--------+ + + + [...] [place] | | | | | | [address] | | | | | | | [...]
--- OUTSIDE RECORDS SUMMARY | ~2020-08-24 | XMS | Encounter Summary ---
Demographics + + + | Address | [address] | | | [place] [address] | + + + | Home Phone [...] Team Providers + +------+ + | Care Booking Prizer Name | Role | Phone | + +------+ + | Rahul Silva MD | PCP | | + +------+ + Encounter Details +--------+ + + + + | Date | Type | Department | Care Team | Description | +--------+ + + + + | 01/23/ | Orders Only | [facility] | Collin Mirza, | | | 2015 | | NEPHROLOGY [place] | CREAM HAULER [address] | | | | | [address] [place] | [address] | | | | | [address] [place], [place] | [place] | | | | | [address] | [address] | | | | | [phone] | [phone] | | | | | | | [...] [place] | | | | | | [address] | | | | | | | [...]
--- OUTSIDE RECORDS SUMMARY | ~2020-08-24 | XMS | Encounter Summary ---
Demographics + + + | Address | [address] | | | [place] [address] | + + + | Home Phone [...] [place] | | | | | [address] | | + + + + + Care Team Providers + +------+ + | Care Military Source Operations Specialist Name | Role | Phone [...] Vyas | | | | | | [address] | | | | | | [place], [place] | | | | | | [address] | | | | | | [phone] | | | +--------+ + + + [...] of this encounter Progress Notes Interface, Manager Fiber In - 01/03/2007 5:08 AM PST [facility] and [address] [address] Department of Orthopaedics, School [facility] OP19 December 21, 1997 Jerry Smiley M.D. [address] [place] [address] [address] [place] [address] RE:Kavon Andujar MR#:[id number] Smiley: Thank you very much for referring Mr. Andjuar to me for an orthopaedic consultation. He [...] Carlson might like. Sincerely, Eric Mcclure M.D. Tafe Registrar, Department of Orthopaedics and Rehabilitation ERICK/sara A documented in this encounter Plan of Treatment Not on filedocumented as of this encounter Visit Diagnoses Not on filedocumented in this encounter"
--- OUTSIDE RECORDS SUMMARY | ~2020-08-24 | XMS | Encounter Summary ---
Demographics + + + | Address | [address] | | | [place] [address] | + + + | Home Phone [...] Team Providers + +------+ + | Care Revenue Investigator Name | Role | Phone | + +------+ + | Mehrdad Bergman | PCP | | + +------+ + Encounter Details +--------+ + + + + | Date | Type | Department | Care Team | Description | +--------+ + + + + | 03/16/ | Orders Only | [facility] | Trisha Conner DNP | | | 2020 | | VASCULAR SURGERY | [address] | | | | | [address] [place] | [address] | | | | | [place], [place] | [address] | | | | | [address] | | | | | | [phone] | | | +--------+ + + + [...] He does not want to come to [facility] until the pandemic is over . Discussed [...] [place] | | | | | | [address] | | | | | | | | +--------+ + + + + documented as of this encounter Visit Diagnoses Not on filedocumented in this encounter"
--- OUTSIDE RECORDS SUMMARY | ~2020-08-24 | XMS | Encounter Summary ---
Demographics + + + | Address | [address] | | | [place] [address] | + + + | Home Phone [...] Team Providers + +------+ + | Care Pocket Setter Lockstitch Name | Role | Phone | + [...] + + | 05/31/ | Documentati | [facility] | Ami Cole, | Results | | 2020 | on | NEPRHOLOGY [place] | Joist Setter | (interpath-05/29/2020 | | | | [address] | | ) | | | | [address] [place], [place] | | | | | | [address] | | | | | | [phone] | | | +--------+ + + + [...] 2019 | Office | | [address] [facility] [place] | | | | Visit | | 160 [place], [place] | | | | | | [address] | | | | | | | [...]
--- OUTSIDE RECORDS SUMMARY | ~2020-08-24 | XMS | Encounter Summary ---
Demographics + + + | Address | [address] | | | [place] [address] | + + + | Home Phone [...] Phone | + + +---------+ + | Charoltte Andujar | ECON | Unknown | | + + +---------+ + Care Team Providers + +------+ + | Care Apprentice Photographer Name | Role | Phone | [...] [address] | | | | | [place], [place] | [place], [place] | | | | | [address] | [address] | | | | | [phone] | [phone] | | | | | | | [...] 2020 | Office | | [address] [facility] | | | | Visit | | 160 [place] | | | | | | [address] | | | | | | | [...]
--- OUTSIDE RECORDS SUMMARY | ~2020-08-24 | XMS | Encounter Summary ---
Demographics + + + | Address | [address] | | | [place] [address] | + + + | Home Phone [...] [place] | | | | | [address] | | + + + + + Care Team Providers + +------+ + | Care Machine Sewer Name | Role | Phone | [...] Vyas | | | | | | [address] | | | | | | [place], [place] | | | | | | [address] | | | | | | [phone] | | | +--------+ + + + [...] as of this encounter Progress Notes Interface, Evaporator Supervisor In - 02/17/2007 3:02 AM PDT [facility] and [place] [address] [place], [place] [address] or August 05, 1996 RUBIA VALLES MD [address] [facility] [address] RE:PORFIRIO ZAVALA MR#:[id number] Valles: Mr. Porfirio Zavala returned to the [facility] today for a followup visit. 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 Mr. Zavala has failed numerous femoral [...] dictating for: Alina Moise M.D. Professor and Manufacturing Engineering Intern, Division of Neurosurgery MARYANA/sajan cc: Seven Khan, Ph.D. Clinical Psychologist-Neuropsychologist documented in this encounter Plan of Treatment Not on filedocumented as of this encounter Visit Diagnoses Not on filedocumented in this encounter"
--- OUTSIDE RECORDS SUMMARY | ~2020-08-24 | XMS | Encounter Summary ---
Demographics + + + | Address | [address] | | | [place] [address] | + + + | Home Phone [...] Team Providers + +------+ + | Care Physical Therapy Resident Name | Role | Phone | + [...] + + | 10/20/ | Telephone | [facility] | Simon, | Other (Tera F/U) | | 2018 | | NEPHROLOGY [place] | [facility] | | | | | [address] | Vice President Biostatistics | | | | | [address] [facility] | | | | | | [place] | | | | | | [address] | | | | | | [phone] | | | +--------+ + + + [...] Miscellaneous Notes Telephone Encounter - Trinidad Simon Cia Agent - 10/20/2019 10:47 AM PSTCalle d to [...] | | | Visit | | [address] [place], [place] | | | | | | [address] | | | | | | | | +--------+ + + + + documented as of this encounter Visit Diagnoses Not on filedocumented in this encounter
--- OUTSIDE RECORDS SUMMARY | ~2020-08-24 | XMS | Encounter Summary ---
Demographics + + + | Address | [address] | | | [place] [address] | + + + | Home Phone [...] Team Providers + +------+ + | Care Ediscovery Project Manager Name | Role | Phone [...] [address] | | | | | [place], [place] | [place], [place] | | | | | [address] | [address] | | | | | [phone] | | | | | | | [...] | | [address] [facility] | | | | Visit | | 160 [place] | | | | | | [address] | | | | | | | [...]
--- OUTSIDE RECORDS SUMMARY | ~2020-08-24 | XMS | Encounter Summary ---
Demographics + + + | Address | [address] | | | [place] [address] | + + + | Home Phone [...] Providers + +------+ + | Care Log Chain Feeder Name | Role | Phone | [...] | | | [address] | [place] [address] | | | | | [place] [address] | | | | | | [phone] | | | +--------+ + + + [...] | | Visit | | [facility] | | | | | | [address] | | | | | | | [...]
--- OUTSIDE RECORDS SUMMARY | ~2020-08-24 | XMS | Encounter Summary ---
Demographics + + + | Address | [address] | | | [place] [address] | + + + | Home Phone [...] Team Providers + +------+ + | Care Driver License Agent Name | Role | Phone | + +------+ + | Rahul Silva MD | PCP | | + +------+ + Encounter Details +--------+ + + + + | Date | Type | Department | Care Team | Description | +--------+ + + + + | 09/18/ | Orders Only | [facility] | Conversion | | | 2018 | | NEPHROLOGY [place] | Transaction, | | | | | [address] | Provider Unknown | | | | | [address] [place] | | | | | | [address] | (Fax) | | | | | [phone] | | | +--------+ + + + [...] 2019 | Office | | [address] [facility] | | | | Visit | | [address] [facility] | | | | | | [address] | | | | | | | [...]
--- OUTSIDE RECORDS SUMMARY | ~2020-08-24 | XMS | Encounter Summary ---
Demographics + + + | Address | [address] | | | [place] [address] | + + + | Home Phone [...] Team Providers + +------+ + | Care Washer Carcass Name | Role | Phone | + [...] + + | 12/30/ | Telephone | [facility] | Farrukh Acuna MD | Other (Medication | | 2019 | | NEPHROLOGY [place] | [address] [place] | question.) | | | | [address] [place] | 160 [facility] [place] | | | | | 160 [place], [place] | [address] | | | | | [address] | | | | | | [phone] | | | +--------+ + + + [...] Notes Telephone Encounter - Trinidad Simon Senior Nurse Manager - 12/30/2019 4:35 PM PSTPatie nts daughter [...] Electronically sign ed by Trinidad Simon Senior Nurse Manager at 12/30/2019 4:40 PM PSTdocumented in this enc ounter Plan of Treatment +--------+ + + + + | Date | Type | Specialty | Care Team | Description | +--------+ + + + + | 10/30/ | Virtual | Nephrology | Farrukh Acuna MD | | | 2019 | Office | | [address] [facility] | | | | Visit | | 160 [place], [place] | | | | | | [address] | | | | | | | | +--------+ + + + + documented as of this encounter Visit Diagnoses Not on filedocumented in this encounter"
--- OUTSIDE RECORDS SUMMARY | ~2020-08-24 | XMS | Encounter Summary ---
Demographics + + + | Address | [address] | | | [place] [address] | + + + | Home Phone [...] [place] | | | | | [address] | | + + + + + Care Team Providers + +------+ + | Care Programmer Analyst Name | Role | Phone [...] Vyas | | | | | | [facility], [address] [place] [address] | | | | | | [place], [place] | | | | | | [address] | | | | | | [phone] | | | +--------+ + + + [...] as of this encounter Discharge Summaries Interface, Science Education Professor In - 12/22/2006 3:12 AM PST [place] [address] [place], [place] [address] [facility] MEDICAL SUMMARY OF HOSPITALIZATION Med Rec No.: [id number] Admission Date: 04/06/98 Name: Kavon Andujar Discharge Date: 04/08/98 STAFF PHYSICIAN: Galo Arora M.D. Medical Office Supervisor, Division of Plastic & Reconstructive Surgery PRINCIPAL [...] M.D. Resident, Plastic Surgery Galo Arora M.D. Medical Office Supervisor, Division of Plastic & Reconstructive Surgery QIANA/charo P cc: GRIFFIN ASHER MD [address] [place] [address] documented in this encounter Plan of Treatment Not on filedocumented as of this encounter Visit Diagnoses Not on filedocumented in this encounter"
--- OUTSIDE RECORDS SUMMARY | ~2020-08-24 | XMS | Encounter Summary ---
Demographics + + + | Address | [address] | | | [place] [address] | + + + | Home Phone [...] Team Providers + +------+ + | Care Coil Winding Machines Set Up Mechanic Name | Role | Phone | [...] [place] | | | | | | [address] | | | | | | [phone] | | | +--------+ + + + [...] | | | Visit | | [address] [place] | | | | | | [address] | | | | | | | | +--------+ + + + + documented as of this encounter Visit Diagnoses Not on filedocumented in this encounter"
--- OUTSIDE RECORDS SUMMARY | ~2020-08-24 | XMS | Encounter Summary ---
Demographics + + + | Address | [address] | | | [place] [address] | + + + | Home Phone [...] Providers + +------+ + | Care Aerospace Stress Engineer Name | Role | Phone | [...] | | [address] | [place] [address] | | | | | [place] [address] | | | | | | [phone] | | | +--------+ + + + [...] | | | Visit | | [address] [place] | | | | | | [address] | | | | | | | [...]
--- OUTSIDE RECORDS SUMMARY | ~2020-08-24 | XMS | Encounter Summary ---
Demographics + + + | Address | [address] | | | [place] [address] | + + + | Home Phone [...] Providers + +------+ + | Care Laundry Operator Finishing Name | Role | Phone | + [...] + + | 12/02/ | Documentati | [facility] | Simon, | Results (11/29/19) | | 2020 | on | NEPHROLOGY [place] | [facility] | | | | | [address] [place] | Production Troubleshooter | | | | | 160 [place], [place] | | | | | | [address] | | | | | | [phone] | | | +--------+ + + + [...] 2019 | Office | | [address] [facility] [place] | | | | Visit | | [address] [place], [place] | | | | | | [address] | | | | | | | [...]
--- OUTSIDE RECORDS SUMMARY | ~2020-08-24 | XMS | Encounter Summary ---
Demographics + + + | Address | [address] | | | [place] [address] | + + + | Home Phone [...] Providers + +------+ + | Care Family Resource Management Specialist Name | Role | Phone | + +------+ + | Rahul Silva MD | PCP | | + +------+ + Encounter Details +--------+ + + + + | Date | Type | Department | Care Team | Description | +--------+ + + + + | 11/05/ | Orders Only | [facility] | Farrukh Acuna MD | Essential | | 2019 | | NEPHROLOGY [place] | [address] [place] | hypertension | | | | [address] | [address] [place], [place] | (Primary Dx); Iron | | | | [address] | [address] | deficiency; Anemia | | | | [place], [place] | | of chronic kidney | | | | [address] | | failure, stage 5 | | | | [phone] | | (HCC) | +--------+ + + [...] Miscellaneous Notes Addendum Note - Kanwal Sampson Channel Worker - 10/05/2019 6:24 PM PST Addended b [...] | | | Visit | | [address] [place], [place] | | | | | | [address] | | | | | | | [...]
--- OUTSIDE RECORDS SUMMARY | ~2020-08-24 | XMS | Encounter Summary ---
Demographics + + + | Address | [address] | | | [place] [address] | + + + | Home Phone [...] Providers + +------+ + | Care Welder Production Line Combination Name | Role | Phone | + [...] | | | | | | | ([facility]) | | | | | [...] + + | 09/10/ | Surgery | [facility] | Brian Orosco MD | INSERTION AV FISTULA | | 2019 | [facility] | [address] | (Right BBF) | | | | OPERATING ROOM [address] | [place], [place] | | | | | [place] | [address] | | | | | [place], [place] | [phone] | | | | | [address] | | | | | | [phone] | | | +--------+---------+ + + + [...] shunt, please contact your ph ysician at [phone]. Discharge instructions for Diagnostic Imaging sedation patients [...] . For any severe symptoms, please call [phone] or report to your nearest Emergency Department. Acetaminophen; Hydrocodone tablets or capsules Brand Names: Anexsia, Lorcet, Lorcet HD, Lorcet Plus, Lortab, Vieques, Verdrocet, Vicodin, Vi codin ES, Vicodin HP, [...] information carefully each time. Talk to your radiation therapy technologist regarding the use of this medicine in children. Special care may be needed. What side effects may I notice from receiving this medicine? Side effects that you should report to your doctor or health critical care rn as soon as p ossible: [...] attention (report to your doctor or health critical care rn if they continue or are [...] disposal site. Contact the [facility] at [phone] or your [facility] government to find a site. [...] this medicine? Tell your doctor or health critical care rn if your pain does not [...] cuts, scrapes, or blows. Date Last Reviewed: 12/01/201619998676-5000 [employer]. [address] [place] [address]. All righ ts reserved. This information is [...] | | | | | | | ([facility]), Secondary | | | | | | | hyperparathyroidism | | | | | | | ([facility]) | | | | | [...] and bl ood clots prevention. Prescription for Vieques given and side effects were explained. Patient states that he also takes oxycodone at home; patient and his family were educated about taki ng oxycodone or Vieques only and not both. OTC Tylenol intake precautions also discussed. Arabella ent and his family verbalized understanding and agreeable. Opportunity to ask questions give n, all questions were answered. Leana Pimentel RN documented in this encounter H&P Notes Brian Orosco MD - 09/10/2019 12:28 PM [facility] Service: Vascular Surgery Pre-Operative History & Physical [...] CV: No peripheral edema, rate regular SKIN: Pike, warm, dry without rash/lesion MS: ROM not [...] right upper extremity fistula creation with the daruis mott. We have discussed benefits and risks [...] Orosco MD - 09/10/2019 2:00 PM PDT [facility] Service: Vascular Surgery Operative Note Pre-operative Diagnosis: CKD and need for long-term dialysis access Post-operative Diagnosis: same Procedure(s): Right brachiocephalic fistula creation Surgeon: Brian Orosco MD Liquefaction And Regasification Helper(s): None Anesthesia: Monitor Anesthesia care and Local [...] | | | Visit | | [address] [place], [place] | | | | | | [address] | | | | | | | [...] Testing | 65 - 99 mg/dL | [facility] | | | POC | performed at [facility];[address] | | LABORATORY | | | | [facility];[place] | | | | | | [address] | | | | + + + + + + + + | Specimen | + + | | + + + + + + + | Performing | Address | City/State/Zipcode | Phone Number | | Organization | | | | + + + + + | [facility] | [address] | [place] [address] | [phone] | + + + + + POC Glucose (09/10/2019 12:13 PM PDT) + + + + + + | Component | Value | Ref Range | Performed | Pathologist | | | | | At | Signature | + + + + + + | Glucose, | 150 (H)Comment: Testing | 65 - 99 mg/dL | [facility] | | | POC | performed at [facility];[address] | | LABORATORY | | | | [address];[place], [place] | | | | | | [address] | | | | + + + + + + + + | Specimen | + + | | + + + + + + + | Performing | Address | City/State/Zipcode | Phone Number | | Organization | | | | + + + + + | [facility] | [address] | [place] [address] | [phone] | + + + + + documented [...] stage 5, GFR less than 15 ml/min ([facility]) Chronic kidney | | disease, [...] One week or | | | longer, gjtfbo-grd-vhupc use of | | | at least [...]
--- OUTSIDE RECORDS SUMMARY | ~2020-08-24 | XMS | Encounter Summary ---
Demographics + + + | Address | [address] | | | [place] [address] | + + + | Home Phone [...] Team Providers + +------+ + | Care Hull Inspector Name | Role | Phone | + +------+ + | Rahul Silva MD | PCP | | + +------+ + Encounter Details +--------+---------+ + + + | Date | Type | Department | Care Team | Description | +--------+---------+ + + + | 07/26/ | Office | [facility] | Farrukh Acuna MD | Stage 5 chronic | | 2019 | Visit | NEPHROLOGY [place] | [address] [place] | kidney disease not | | | | [address] | [address] [place], [place] | on chronic dialysis | | | | [address] | [address] | (HCC) (Primary Dx); | | | | [place], [place] | | Edema of lower | | | | [address] | | extremity; Tobacco | | | | [phone] | | dependence syndrome; | | | [...] Also: I see no need for acute SURGERY CONSULTANT. I see no need to send [...] 05/31/19 1232 Encounter Date: 05/31/2019 Status: Signed Accountant Supervisor: Farrukh Acuna MD (Physician) Patient Active Problem [...] 10/2016 with severe pneumonia, severe ZEKE; needed SURGERY CONSULTANT for ~5 weeks b efore renal function recovery mid 12/2016. He was admitted to [facility] for 3 nights in July 2016 for [...] 19.5 (A) 05/27/2019 LABPROT 2,445.6 (A) 03/01/2019 [id number] 10/08/2018 Assessment: Mr. Andujar is a 78 y.o. male patient with stage IV CKD on a background of diabetes & hypert ension and recent hospitalization for C-diff and hehydration. The most likely pathology here is that of diabetic nephropathy +/- hypertensive nephrosclerosis/arteriolosclerosis. He was hospitalized in 10/2016 with severe pneumonia, severe ZEKE; needed SURGERY CONSULTANT for ~5 weeks b efore renal [...] Also: I see no need for acute SURGERY CONSULTANT. I see no need to send [...] | | | Visit | | [address] [place], [place] | | | | | | [address] | | | | | | | [...]
--- OUTSIDE RECORDS SUMMARY | ~2020-08-24 | XMS | Encounter Summary ---
Demographics + + + | Address | [address] | | | [place] [address] | + + + | Home Phone [...] Providers + +------+ + | Care Research Rn Spec Name | Role | Phone | + +------+ + | Rahul Silva MD | PCP | | + +------+ + Encounter Details +--------+ + + + + | Date | Type | Department | Care Team | Description | +--------+ + + + + | 09/17/ | Orders Only | [facility] | Collin Mirza, | | | 2016 | | NEPHROLOGY [place] | SIGNALING PROJECT ENGINEER [address] | | | | | [address] [place] | [address] | | | | | [address] [place], [place] | [place] | | | | | [address] | [address] | | | | | [phone] | [phone] | | | | | | | [...] | | | Visit | | [address] [place] | | | | | | [address] | | | | | | | [...]
--- OUTSIDE RECORDS SUMMARY | ~2020-08-24 | XMS | Encounter Summary ---
Demographics + + + | Address | [address] | | | [place] [address] | + + + | Home Phone [...] Providers + +------+ + | Care Engineering Technician Parking Name | Role | Phone | + +------+ + | Rahul Silva MD | PCP | | + +------+ + Encounter Details +--------+ + + + + | Date | Type | Department | Care Team | Description | +--------+ + + + + | 12/07/ | Orders Only | [facility] | Farrukh Acuna MD | Essential | | 2020 | | NEPHROLOGY [place] | [address] [place] | hypertension | | | | [address] [place] | [address] [place], [place] | (Primary Dx); | | | | [address] [place], [place] | [address] | Secondary | | | | [address] | | hyperparathyroidism | | | | [phone] | | (HCC); Anemia of | | | | | | chronic kidney | | | | | | failure, stage 5 | | | | | | ([facility]); CKD (chronic | | | | | | kidney disease) | | | | | | stage 5, GFR less | | | | | | than 15 ml/min | | | | | | ([facility] [...] | [address] [facility] [place] | | | | Visit | | [address] [place] | | | | | | [address] | | | | | | | [...] CARE) | | | | | | Persistent [...] CARE) | | | | | | Persistent [...] CARE) | | | | | | Persistent [...] CARE) | | | | | | Persistent [...] CARE) | | | | | | Persistent [...] | | | ([facility]) CKD (chronic | | | | | [...] | | | ([facility]) CKD (chronic | | | | | [...] | | | ([facility]) CKD (chronic | | | | | | kidney disease) | | | | | | stage 5, GFR less | | | | | | than 15 ml/min ([facility]) | | | | | | Persistent [...]
--- OUTSIDE RECORDS SUMMARY | ~2020-08-24 | XMS | Encounter Summary ---
Demographics + + + | Address | [address] | | | [place] [address] | + + + | Home Phone [...] Providers + +------+ + | Care Residential Instructor Name | Role | Phone | [...] | [address] [place] | [place] [address] | | | | | [place] [address] | | | | | | [phone] | | | +--------+ + + + [...] | | Visit | | [address] [place] | | | | | | [address] | | | | | | | [...]
--- OUTSIDE RECORDS SUMMARY | ~2020-08-24 | XMS | Encounter Summary ---
Demographics + + + | Address | [address] | | | [place] [address] | + + + | Home Phone [...] Providers + +------+ + | Care Farmworker [employer]er [employer] Name | Role | Phone | + [...] + + | 08/10/ | Telephone | [facility] | Brian Orosco MD | Other (orders ) | | 2019 | | VASCULAR SURGERY | [address] | | | | | [address] [place] | [place], [place] | | | | | [place], [place] | [address] | | | | | [address] | [phone] | | | | | [phone] | | | +--------+ + + + [...] transfer the call to a rolf munoz ore bridge operator was caller made aware that if [...] | | Visit | | [address] [place], [place] | | | | | | [address] | | | | | | | | +--------+ + + + + documented as of this encounter Visit Diagnoses Not on filedocumented in this encounter"
--- OUTSIDE RECORDS SUMMARY | ~2020-08-24 | XMS | Encounter Summary ---
Demographics + + + | Address | [address] | | | [place] [address] | + + + | Home Phone [...] Providers + +------+ + | Care International Accounting Manager Name | Role | Phone | [...] | | | stage 5, GFR | [address] | | | | | | less than | Phone: | | | | | | 15 ml/min | [phone] | | | | | | (HCC) | Fax: | | | | | | Procedures | [phone] | | | | | | VAS [...] | | | stage 5, GFR | [address] | | | | | | less than | Phone: | | | | | | 15 ml/min | [phone] | | | | | | ([facility]) | Fax: | | | | | | Procedures | [phone] | | | | | | VAS [...] + + | 10/20/ | Hospital | [facility] | Trisha Conner DNP | CKD (chronic kidney | | 2019 | Encounter | VASCULAR SURGERY | [address] | disease) stage 5, | | | | ULTRASOUND [address] | [place], [place] | GFR less than 15 | | | | [address] | [address] | ml/min ([facility]) | | | | [place] | | | | | | [address] | | | | | | [phone] | | | +--------+ + + + [...] | | | | | | | ([facility]), Secondary | | | | | | | hyperparathyroidism | | | | | | | ([facility]) | | | | | | [...] | | | | | | | ([facility]) | | | | | | [...] [place] | | | | | | [address] | | | | | | | [...]
--- OUTSIDE RECORDS SUMMARY | ~2020-08-24 | XMS | Encounter Summary ---
Demographics + + + | Address | [address] | | | [place] [address] | + + + | Home Phone [...] Providers + +------+ + | Care Gas Transfer Operator Name | Role | Phone | + +------+ + | Rahul Silva MD | PCP | | + +------+ + Encounter Details +--------+ + + + + | Date | Type | Department | Care Team | Description | +--------+ + + + + | 07/14/ | Orders Only | [facility] | Conversion | | | 2018 | | [place] | Transaction, | | | | | [address] | Provider Unknown | | | | | [address] [place], [place] | [phone] | | | | | [address] | (Fax) | | | | | [phone] | | | +--------+ + + + [...] [place] | | | | | | [address] | | | | | | | [...]
--- OUTSIDE RECORDS SUMMARY | ~2020-08-24 | XMS | Encounter Summary ---
Demographics + + + | Address | [address] | | | [place] [address] | + + + | Home Phone [...] [place] | | | | | [address] | | + + + + + Care Team Providers + +------+ + | Care Stock Or Delivery Clerk Name | Role | Phone | [...] | | | [facility], [address] | | | | | | [place], [place] | | | | | | [address] | | | | | | [phone] | | | +--------+ + + + [...] as of this encounter Progress Notes Interface, Machine Worker In - 01/06/2007 5:03 AM PST CLINIC DATE: 10/31/97 [facility] - PROCEDURE NOTE PROCEDURE: [...] his left thigh stump. Nelson Melara M.D. Care Tech, [facility] MANDY/maryjo documented in this encounter Plan of Treatment Not on filedocumented as of this encounter Visit Diagnoses Not on filedocumented in this encounter"
--- OUTSIDE RECORDS SUMMARY | ~2020-08-24 | XMS | Encounter Summary ---
Demographics + + + | Address | [address] | | | [place] [address] | + + + | Home Phone [...] Providers + +------+ + | Care Export Sales Manager Name | Role | Phone [...] (ear) | | | | [address] [facility] [address] | [address] [place] | | | | | [place] | [address] | | | | | [address] | | | | | | [phone] | | | +--------+ + + + [...] Miscellaneous Notes Telephone Encounter - Sarah Manzanares, Department Helper - 08/07/2016 3:14 PM PDTCalled a [...] dry elephone Breann jackson - Sarah Manzanares, Department Helper - 08/07/2016 11:03 AM PDTPatient daughter [...] Office | | [address] [facility] | | | | Visit | | [address] [place], [place] | | | | | | [address] | | | | | | | | +--------+ + + + + documented as of this encounter Visit Diagnoses Not on filedocumented in this encounter"
--- OUTSIDE RECORDS SUMMARY | ~2020-08-24 | XMS | Encounter Summary ---
Demographics + + + | Address | [address] | | | [place] [address] | + + + | Home Phone [...] Providers + +------+ + | Care Human Services Professional Name | Role | Phone | [...] | | | [address] [place], [place] | [address] | | | | | [address] | | | | | | [phone] | | | +--------+ + + + [...] | | | Visit | | [address] [place], [place] | | | | | | [address] | | | | | | | [...]
--- OUTSIDE RECORDS SUMMARY | ~2020-08-24 | XMS | Encounter Summary ---
Demographics + + + | Address | [address] | | | [place] [address] | + + + | Home Phone [...] Providers + +------+ + | Care Autocad Operator Name | Role | Phone | + +------+ + | Rahul Silva MD | PCP | | + +------+ + Encounter Details +--------+ + + + + | Date | Type | Department | Care Team | Description | +--------+ + + + + | 09/07/ | Preadmit | [facility] | Brian Orosco MD | | | 2019 | Visit | CENTER PREAD[facility] | [address] | | | | | CLINIC [address] | [place], [place] | | | | | [place], [place] | [address] | | | | | [address] | [phone] | | | | | [phone] | | | +--------+ + + + [...] for the 09/07/19 encounter (Preadmit Visit) with [facility] ROOM 4 Medication Sig Instructions acyclovir [...] to check-in desk and are in the [facility] waiting room. AttachmentsThe following attachments cannot be sent through Care Everywhere.Hemodialysis Ac cess, Creating a (Libyan)Dialysis, Arteriovenous (AV) Fistula for (Libyan)documented in th is encounter Plan of Treatment +--------+ + + + + | Date | Type | Specialty | Care Team | Description | +--------+ + + + + | 10/30/ | Virtual | Nephrology | Farrukh Acuna MD | | | 2019 | Office | | [address] [facility] [place] | | | | Visit | | [address] [place], [place] | | | | | | [address] | | | | | | | [...] | | | | | | [facility], | | | | | | [place] [address] | | | | + + + + + + + + | Specimen | + + | Blood | + + + + + + + | Performing | Address | City/State/Zipcode | Phone Number | | Organization | | | | + + + + + | [facility] | [address] | [place] [address] | [phone] | + + + + + CBC [...] | | | Absolute | performed at [facility], [address] | K/uL | LABORATORY | | | | [place], | | | | | | [place] [address] | | | | + + + + + + + + | Specimen | + + | Blood | + + + + + + + | Performing | Address | City/State/Zipcode | Phone Number | | Organization | | | | + + + + + | [facility] | [address] | [place] [address] | [phone] | + + + + + ECG [...]
--- OUTSIDE RECORDS SUMMARY | ~2020-08-24 | XMS | Encounter Summary ---
Demographics + + + | Address | [address] | | | [place] [address] | + + + | Home Phone [...] Team Providers + +------+ + | Care Jig Hand Name | Role | Phone | [...] + + | 09/28/ | Telephone | [facility] | Sandy Gomez, | Appointment | | 2019 | | VASCULAR SURGERY | RN | | | | | [address] | | | | | | [place] | | | | | | [address] | | | | | | [phone] | | | +--------+ + + + [...] states the patient is currently admitted in [place] and will no t make it to [...] | | | Visit | | [address] [place] | | | | | | [address] | | | | | | | | +--------+ + + + + documented as of this encounter Visit Diagnoses Not on filedocumented in this encounter"
--- OUTSIDE RECORDS SUMMARY | ~2020-08-24 | XMS | Encounter Summary ---
Demographics + + + | Address | [address] | | | [place] [address] | + + + | Home Phone [...] Providers + +------+ + | Care Health Insurance Specialist Name | Role | Phone | [...] + + | 03/20/ | Telephone | [facility] | Sandy Capellan | Mary (Clarification | | 2020 | | NEPRHOLOGY [place] | [place] | on lab orders) | | | | [address] | | | | | | [address] [place] | | | | | | [address] | | | | | | [phone] | | | +--------+ + + + [...] banks, called explaining that they went to [facility] today but were unable to do labs becaus e they were missing the urine order. Explained that per last OV note, Dr Acuna only wanted b lood work and no urine testing was needed. She stated understanding and they will go to [facility] tomorrow for non-fasting blood work. Re-faxed pre-appointment orders (RFP, PTH, ferrit in, iron/iron binding, mag, and CBC) to [facility] in [place] (F#[phone]). Fax confirm ation received. No further questions [...] | | | Visit | | [address] [place], [place] | | | | | | [address] | | | | | | | | +--------+ + + + + documented as of this encounter Visit Diagnoses Not on filedocumented in this encounter"
--- OUTSIDE RECORDS SUMMARY | ~2020-08-24 | XMS | Encounter Summary ---
Demographics + + + | Address | [address] | | | [place] [address] | + + + | Home Phone [...] Team Providers + +------+ + | Care Almond Paste Molder Name | Role | Phone | [...] [address] | | | | | [place], [place] | [place], [place] | | | | | [address] | [address] | | | | | [phone] | [phone] | | | | | | | [...] 2020 | Office | | [address] [facility] | | | | Visit | | [address] [place] | | | | | | [address] | | | | | | | [...]
--- OUTSIDE RECORDS SUMMARY | ~2020-08-24 | XMS | Encounter Summary ---
Demographics + + + | Address | [address] | | | [place] [address] | + + + | Home Phone [...] Providers + +------+ + | Care Glass Robot Operator Name | Role | Phone | [...] | | | [address] | [place] [address] | | | | | [place] [address] | | | | | | [phone] | | | +--------+ + + + [...] HOSPITAL[facility] | | | | | | [address] | | | | | | | [...]
--- OUTSIDE RECORDS SUMMARY | ~2020-08-24 | XMS | Encounter Summary ---
Demographics + + + | Address | [address] | | | [place] [address] | + + + | Home Phone [...] Providers + +------+ + | Care Final Inspector Movement Assembly Name | Role | Phone | + +------+ + | Rahul Silva MD | PCP | | + +------+ + Encounter Details +--------+ + + + + | Date | Type | Department | Care Team | Description | +--------+ + + + + | 10/08/ | Orders Only | [facility] | Farrukh Acuna MD | | | 2018 | | NEPHROLOGY [place] | [address] [place] | | | | | [address] [place] | [address] [place], [place] | | | | | [address] [place], [place] | [address] | | | | | [address] | | | | | | [phone] | | | +--------+ + + + [...] | | | Visit | | [address] [place], [place] | | | | | | [address] | | | | | | | [...] | | | LAB | | | Uzbek | | | | | + + [...]
--- OUTSIDE RECORDS SUMMARY | ~2020-08-24 | XMS | Encounter Summary ---
Demographics + + + | Address | [address] | | | [place] [address] | + + + | Home Phone [...] Providers + +------+ + | Care Metal Coater Operator Name | Role | Phone | + +------+ + | Rahul Silva MD | PCP | | + +------+ + Encounter Details +--------+---------+ + + + | Date | Type | Department | Care Team | Description | +--------+---------+ + + + | 01/10/ | Office | [facility] | Farrukh Acuna MD | CKD (chronic kidney | | 2020 | Visit | NEPHROLOGY [place] | [address] [place] | disease) stage 5, | | | | [address] | [address] [place], [place] | GFR less than 15 | | | | [address] | [address] | ml/min (HCC) | | | | [place], [place] | | (Primary Dx); Anemia | | | | [address] | | of chronic kidney | | | | [phone] | | failure, stage 5 | | [...] 10/2016 with severe pneumonia, severe ZEKE; needed SURVEILLANCE OFFICER for ~5 weeks b efore renal function recovery mid 12/2016. He was admitted to [facility] for 3 nights in July 2016 [...] 10/2016 with severe pneumonia, severe ZEKE; needed SURVEILLANCE OFFICER for ~5 weeks b efore renal function [...] Also: I see no need for acute SURVEILLANCE OFFICER. I see no need to send him [...] | | | Visit | | [address] [place], [place] | | | | | | [address] | | | | | | | | +--------+ + + + + documented as of this encounter Visit Diagnoses + + | Diagnosis | + + | CKD (chronic kidney disease) stage 5, GFR less than 15 ml/min ([facility]) - Primary Chronic | | kidney [...]
--- OUTSIDE RECORDS SUMMARY | ~2020-08-24 | XMS | Encounter Summary ---
Demographics + + + | Address | [address] | | | [place] [address] | + + + | Home Phone [...] Team Providers + +------+ + | Care Snowboard Designer Name | Role | Phone | + +------+ + | Mehrdad Bergman | PCP | | + +------+ + Encounter Details +--------+ + + + + | Date | Type | Department | Care Team | Description | +--------+ + + + + | 08/09/ | Orders Only | [facility] | Farrukh Acuna MD | Essential | | 2020 | | NEPHROLOGY [place] | [address] [place] | hypertension | | | | [address] [place] | [address] [place], [place] | (Primary Dx); Type 2 | | | | [address] [place], [place] | [address] | diabetes mellitus | | | | [address] | | with diabetic | | | | [phone] | | nephropathy, with | | | [...] [place] | | | | | | [address] | | | | | | | [...] | | use of insulin ([facility]) | | | | | | Anemia of chronic | | | | | | kidney failure, | | | | | | stage 5 ([facility]) CKD | | | | | | (chronic kidney | | | | | | disease) stage 5, | | | | | | GFR less than 15 | | | | | | ml/min ([facility]) | | | | | | Persistent [...] | | use of insulin ([facility]) | | | | | | Anemia of chronic | | | | | | kidney failure, | | | | | | stage 5 ([facility]) CKD | | | | | | (chronic kidney | | | | | | disease) stage 5, | | | | | | GFR less than 15 | | | | | | ml/min ([facility]) | | | | | | Persistent [...] | | use of insulin ([facility]) | | | | | | Anemia of chronic | | | | | | kidney failure, | | | | | | stage 5 ([facility]) CKD | | | | | | (chronic kidney | | | | | | disease) stage 5, | | | | | | GFR less than 15 | | | | | | ml/min ([facility]) | | | | | | Persistent [...] | | use of insulin ([facility]) | | | | | | Anemia of chronic | | | | | | kidney failure, | | | | | | stage 5 ([facility]) CKD | | | | | | (chronic kidney | | | | | | disease) stage 5, | | | | | | GFR less than 15 | | | | | | ml/min ([facility]) | | | | | | Persistent [...] | | use of insulin ([facility]) | | | | | | Anemia of chronic | | | | | | kidney failure, | | | | | | stage 5 ([facility]) CKD | | | | | | (chronic kidney | | | | | | disease) stage 5, | | | | | | GFR less than 15 | | | | | | ml/min ([facility]) | | | | | | Persistent [...] | | use of insulin ([facility]) | | | | | | Anemia of chronic | | | | | | kidney failure, | | | | | | stage 5 ([facility]) CKD | | | | | | (chronic kidney | | | | | | disease) stage 5, | | | | | | GFR less than 15 | | | | | | ml/min ([facility]) | | | | | | Persistent [...] | | use of insulin ([facility]) | | | | | | Anemia of chronic | | | | | | kidney failure, | | | | | | stage 5 ([facility]) CKD | | | | | | (chronic kidney | | | | | | disease) stage 5, | | | | | | GFR less than 15 | | | | | | ml/min ([facility]) | | | | | | Persistent [...] | | use of insulin ([facility]) | | | | | | Anemia of chronic | | | | | | kidney failure, | | | | | | stage 5 ([facility]) CKD | | | | | | (chronic kidney | | | | | | disease) stage 5, | | | | | | GFR less than 15 | | | | | | ml/min ([facility]) | | | | | | Persistent [...] | | use of insulin ([facility]) | | | | | | Anemia of chronic | | | | | | kidney failure, | | | | | | stage 5 ([facility]) CKD | | | | | | (chronic kidney | | | | | | disease) stage 5, | | | | | | GFR less than 15 | | | | | | ml/min ([facility]) | | | | | | Persistent | | | | | | proteinuria | | + +------+--------+ + + documented as of this encounter Visit Diagnoses + + | Diagnosis | + + | Essential hypertension - Primary Unspecified essential hypertension | + + | Type 2 diabetes mellitus with diabetic nephropathy, with long-term current use of | | insulin ([facility]) | + + | Anemia of chronic kidney failure, stage 5 ([facility]) | + + | CKD (chronic kidney disease) stage 5, GFR less than 15 ml/min ([facility]) Chronic kidney | | disease, Stage V | + + | Persistent proteinuria Proteinuria | + + documented in this encounter"
--- OUTSIDE RECORDS SUMMARY | ~2020-08-24 | XMS | Encounter Summary ---
Demographics + + + | Address | [address] | | | [place] [address] | + + + | Home Phone [...] Providers + +------+ + | Care Clinical Technician Name | Role | Phone | [...] | | | stage 5, GFR | [address] | | | | | | less than | Phone: | | | | | | 15 ml/min | [phone] | | | | | | (HCC) | Fax: | | | | | | Procedures | [phone] | | | | | | VAS [...] + + | 10/20/ | Office | [facility] | Trisha Conner, MERY | CKD (chronic kidney | | 2019 | Visit | VASCULAR SURGERY | [address] | disease) stage 5, | | | | [address] | [place], [place] | GFR less than 15 | | | | [place], [place] | [address] | ml/min (HCC) | | | | [address] | | (Primary Dx); AVF | | | | [phone] | | (arteriovenous | | | | [...] PM [facility] [address] [place] [address] Office: [phone] DATE OF VISIT: 10/20/2019 PATIENT NAME: Kavon Andujar : 1940; AGE: 79 y.o.; Sex:M PHONE NUMBER: ; ; PROVIDER: Trisha Conner DNP PRIMARY CARE / REFERRING PHYSICIAN: No ref. provider found / Rahul Silva MD / [address] [facility] [address] / [place] [address] REASON FOR EVALUATION / CHIEF COMPLAINT: Vascular Surgery Postoperative Visit for AVF creation The patient presents today for a Vascular Surgery Postoperative Visit. The patient is statu s post right brachiocephalic AVF creation, which was performed on 09/10/[address] [facility] Operating Room. The patient is not having any pain. The patient denie s fever, wound drainage, increasing redness, pus, increasing pain, increasing swelling. Phys ical examination revealed surgical incision is healed. He has good thrills over the AVF site . Patient's dirt supervisor is Dr. Acuna. The patient is not [...] 2019 | Office | | [address] [facility] | | | | Visit | | [address] [place], [place] | | | | | | [address] | | | | | | | [...] + + | Performing | Address | City/State[facility] | Phone Number | | [...] + | AVF (arteriovenous fistula) ([facility]) Arteriovenous fistula, acquired | + + documented in this encounter"
--- OUTSIDE RECORDS SUMMARY | ~2020-08-24 | XMS | Encounter Summary ---
Demographics + + + | Address | [address] | | | [place] [address] | + + + | Home Phone [...] Providers + +------+ + | Care Criminal Investigator Customs Name | Role | Phone | + [...] (HCC) | | | | [address] | [address] [place], [place] | (Primary Dx); | | | | [address] | [address] | Persistent | | | | [place], [place] | | proteinuria; | | | | [address] | | Secondary | | | | [phone] | | hyperparathyroidism | | | | [...] | | | Visit | | [address] [place], [place] | | | | | | [address] | | | | | | | [...]
--- OUTSIDE RECORDS SUMMARY | ~2020-08-24 | XMS | Encounter Summary ---
Demographics + + + | Address | [address] | | | [place] [address] | + + + | Home Phone [...] Team Providers + +------+ + | Care Nickel Operator Name | Role | Phone | + +------+ + | Rahul Silva MD | PCP | | + +------+ + Encounter Details +--------+ + + + + | Date | Type | Department | Care Team | Description | +--------+ + + + + | 10/10/ | Orders Only | [facility] | Farrukh Acuna MD | | | 2013 | | NEPHROLOGY [place] | [address] [place] | | | | | [address] [place] | [address] [place], [place] | | | | | [address] [place], [place] | [address] | | | | | [address] | | | | | | [phone] | | | +--------+ + + + [...] | Visit | | [facility] | | | | | | [address] | | | | | | | [...]
--- OUTSIDE RECORDS SUMMARY | ~2020-08-24 | XMS | Encounter Summary ---
Demographics + + + | Address | [address] | | | [place] [address] | + + + | Home Phone [...] Team Providers + +------+ + | Care Caramel Candy Maker Helper Name | Role | Phone | [...] | | | | | Procedures | [address] | | | | | | VAS Arm | Phone: | | | | | | Bilateral | [phone] | | | | | | Mapping For | Fax: | | | | | | Dialysis | [phone] | | +--------+--------+ + + + + [...] | | | | | Procedures | [address] | | | | | | VAS Arm | Phone: | | | | | | Bilateral | [phone] | | | | | | Mapping For | Fax: | | | | | | Dialysis | [phone] | | +--------+--------+ + + + + Encounter Details +--------+ + + + + | Date | Type | Department | Care Team | Description | +--------+ + + + + | 08/20/ | Hospital | [facility] | Trisha Conner DNP | 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 | VASCULAR SURGERY | [address] | renal disease) ([facility]LY [facility]) | | | | ULTRASOUND [address] | [place], [place] | | | | | [address] | [address] | | | | | [place], [place] | | | | | | [address] | | | | | | [phone] | | | +--------+ + + + [...] 2020 | Office | | [address] [facility] | | | | Visit | | [address] [place] | | | | | | [address] | | | | | | | [...]
--- OUTSIDE RECORDS SUMMARY | ~2020-08-24 | XMS | Encounter Summary ---
Demographics + + + | Address | [address] | | | [place] [address] | + + + | Home Phone [...] + | 08/19/ | Orders Only | [facility] | Farrukh Acuna MD | | | 2018 | | NEPHROLOGY [place] | [address] [place] | | | | | [address] [place] | [address] [place], [place] | | | | | [address] [place], [place] | [address] | | | | | [address] | | | | | | [phone] | | | +--------+ + + + [...] | | | Visit | | [address] [place], [place] | | | | | | [address] | | | | | | | [...]
--- OUTSIDE RECORDS SUMMARY | ~2020-08-24 | XMS | Encounter Summary ---
Demographics + + + | Address | [address] | | | [place] [address] | + + + | Home Phone [...] + +------+ + | Care Night Warehouse Selector Name | Role | Phone | + +------+ + | Rahul Silva MD | PCP | | + +------+ + Encounter Details +--------+ + + + + | Date | Type | Department | Care Team | Description | +--------+ + + + + | 03/13/ | Orders Only | [facility] | Conversion | | | 2016 | | NEPHROLOGY [place] | Transaction, | | | | | [address] | Provider Unknown | | | | | [address] [place] | | | | | | [address] | (Fax) | | | | | [phone] | | | +--------+ + + + [...] | | | Visit | | [facility] | | | | | | [address] | | | | | | | [...] - 1.030 | EXTERNAL | | | [place], | | | LAB | | | [...] | | | LAB | | | [place] | | | | | + [...]
--- OUTSIDE RECORDS SUMMARY | ~2020-08-24 | XMS | Encounter Summary ---
Demographics + + + | Address | [address] | | | [place] [address] | + + + | Home Phone [...] Providers + +------+ + | Care Chimney Mechanic Name | Role | Phone | + +------+ + | Rahul Silva MD | PCP | | + +------+ + Encounter Details +--------+ + + + + | Date | Type | Department | Care Team | Description | +--------+ + + + + | 05/27/ | Orders Only | [facility] | Conversion | | | 2018 | | NEPJUANCARLOS GIBSON | Transaction, | | | | | [address] | Provider Unknown | | | | | [address] [place], [place] | [phone] | | | | | [address] | (Fax) | | | | | [phone] | | | +--------+ + + + [...] 2019 | Office | | [address] [facility] | | | | Visit | | [address] [place] | | | | | | [address] | | | | | | | [...]
--- OUTSIDE RECORDS SUMMARY | ~2020-08-24 | XMS | Encounter Summary ---
Demographics + + + | Address | [address] | | | [place] [address] | + + + | Home Phone [...] | | | [address] [place] | [place] [address] | | | | | [place] [address] | | | | | | [phone] | | | +--------+ + + + [...] | Visit | | [facility] | | | | | | [address] | | | | | | | [...]
--- OUTSIDE RECORDS SUMMARY | ~2020-08-24 | XMS | Encounter Summary ---
Demographics + + + | Address | [address] | | | [place] [address] | + + + | Home Phone [...] Providers + +------+ + | Care Electrical Timing Device Calibrator Name | Role | Phone | + [...] [address] | | | | | [place], [place] | [place], [place] | | | | | [address] | [address] | | | | | [phone] | | | | | | | [...] 2020 | Office | | [address] [facility] | | | | Visit | | [address] [place] | | | | | | [address] | | | | | | | [...]
--- OUTSIDE RECORDS SUMMARY | ~2020-08-24 | XMS | Encounter Summary ---
Demographics + + + | Address | [address] | | | [place] [address] | + + + | Home Phone [...] Team Providers + +------+ + | Care Beef Ribber Name | Role | Phone | + +------+ + | Rahul Silva MD | PCP | | + +------+ + Encounter Details +--------+ + + + + | Date | Type | Department | Care Team | Description | +--------+ + + + + | 08/31/ | Orders Only | [facility] | Farrukh Acuna MD | | | 2013 | | NEPHROLOGY [place] | [address] [place] | | | | | [address] [place] | [address] [place], [place] | | | | | [address] [place], [place] | [address] | | | | | [address] | | | | | | [phone] | | | +--------+ + + + [...] | | | Visit | | [facility] | | | | | | [address] | | | | | | | [...]
--- OUTSIDE RECORDS SUMMARY | ~2020-08-24 | XMS | Encounter Summary ---
Demographics + + + | Address | [address] | | | [place] [address] | + + + | Home Phone [...] Providers + +------+ + | Care Transportation Technician Name | Role | Phone | [...] + + | 01/10/ | Documentati | [facility] | Simon, | Results (01/07/20) | | 2020 | on | NEPHROLOGY [place] | [facility] | | | | | [address] [place] | Creative/Art Director | | | | | [address] [place], [place] | | | | | | [address] | | | | | | [phone] | | | +--------+ + + + [...] | Office | | [address] [facility] | | | | Visit | | [address] [place], [place] | | | | | | [address] | | | | | | | [...]
--- OUTSIDE RECORDS SUMMARY | ~2020-08-24 | XMS | Encounter Summary ---
Demographics + + + | Address | [address] | | | [place] [address] | + + + | Home Phone [...] Team Providers + +------+ + | Care Single Wire Saw Operator Name | Role | Phone | + +------+ + | Mehrdad Bergman | PCP | | + +------+ + Encounter Details +--------+ + + + + | Date | Type | Department | Care Team | Description | +--------+ + + + + | 10/01/ | Telephone | [facility] | Farrukh Acuna MD | | | 2019 | | NEPHROLOGY [place] | [address] [facility] [place] | | | | | [address] [facility] | [address] [place] | | | | | [place] | [address] | | | | | [address] | | | | | | [phone] | | | +--------+ + + + [...] by Friday. Please call them back at [phone] . Detailed message may be left on [...] Office | | [address] [facility] | | | | Visit | | [address] [place] | | | | | | [address] | | | | | | | | +--------+ + + + + documented as of this encounter Visit Diagnoses Not on filedocumented in this encounter"
--- OUTSIDE RECORDS SUMMARY | ~2020-08-24 | XMS | Encounter Summary ---
Demographics + + + | Address | [address] | | | [place] [address] | + + + | Home Phone [...] Providers + +------+ + | Care Data Reduction Technician Name | Role | Phone | [...] + + | 05/18/ | Telephone | [facility] | Marilia Sandy | Other (ER report | | 2020 | | NEPRHOLOGY PAIGE | Rory RN | reviewed from | | | | [address] | | Sheila GILLIS | | | | [address] [place], [place] | | 05/16/20/No changes) | | | | [address] | | | | | | [phone] | | | +--------+ + + + [...] PM PDTDr Acuna reviewed ER report from [facility] from DOS 05/16/2020. Per Dr Acuna, no changes at this time. Returned call to Kavon and relayed this message to him. No further questions at this time.Esteban weldon signed by Sandy Cpaellan RN at 05/18/2020 6:24 PM PDTTelephone Encounter - Sandy Phillips RN - 05/18/2020 6:22 PM PDT----- Message from Lee Ann Mcnulty sent at 020 3:44 PM PDT ----- Regarding: Armand- standing orders Provider: Armand patient and daughter called to let us know that he has been in and out of [facility] and has had lot of labs drawn. He is do for his 2 Week BMP and CBC. Can you please contact [facility] to get these 2 test result for Armand to review Please call them back at [phone]. Detailed message may be left on phone: Yes Last OV: 03/27/2020 Next OV: 06/05/2020 If this is a symptom based call and you were unable to immediately transfer the call to [facility] staff, was caller made aware that if at any timehefeels it is an emergency they should call 911 or go to the nearest emergency room? N/A Is bellows charger assembler needed: no documented in this encounter Plan [...] [place] | | | | | | [address] | | | | | | | | +--------+ + + + + documented as of this encounter Visit Diagnoses Not on filedocumented in this encounter"
--- OUTSIDE RECORDS SUMMARY | ~2020-08-24 | XMS | Encounter Summary ---
Demographics + + + | Address | [address] | | | [place] [address] | + + + | Home Phone [...] [place] | | | | | [address] | | + + + + + Care Team Providers + +------+ + | Care Supervisor Coremaker Name | Role | Phone | + [...] [address] | | | | | | [place], [place] | | | | | | [address] | | | | | | [phone] | | | +--------+ + + + [...] this encounter Miscellaneous Notes Scan - Interface, Boarder Machine In - 05/05/2009 11:41 AM PDT Patient [...] * Comments- PROTIME 15.9 SECONDS DONE AT [facility]. DAUGHTER REPORTS PATIENT WAS SEEN AT [facility] AFTER HE FELL AND INJURED LEG [...] Changes Dose THRP 05/07/93 02.29 I 2.29 [id number] 0000 0000 60.00 N 05/01/93 02.65 I 2.65 [id number] 0000 0000 60.00 N 04/26/93 02.04 I 2.04 [id number] 0000 0000 62.50 N 04/23/93 01.64 I 1.64 [id number] 0000 0000 62.50 L 04/19/93 01.57 I 1.57 [id number] 0000 0000 65.00 L Dosage Weekly Date [...]
--- OUTSIDE RECORDS SUMMARY | ~2020-08-24 | XMS | Encounter Summary ---
Demographics + + + | Address | [address] | | | [place] [address] | + + + | Home Phone [...] Team Providers + +------+ + | Care Histologic Technician Name | Role | Phone | [...] [address] | | | | | [place], [place] | [place], [place] | | | | | [address] | [address] | | | | | [phone] | [phone] | | | | | | | [...] | | | Visit | | [address] [place] | | | | | | [address] | | | | | | | [...]
--- OUTSIDE RECORDS SUMMARY | ~2020-08-24 | XMS | Encounter Summary ---
Demographics + + + | Address | [address] | | | [place] [address] | + + + | Home Phone [...] Providers + +------+ + | Care Door Tender Name | Role | Phone | + +------+ + | Rahul Silva MD | PCP | | + +------+ + Encounter Details +--------+ + + + + | Date | Type | Department | Care Team | Description | +--------+ + + + + | 11// | Orders Only | [facility] | Farrukh Acuna MD | Essential | | 2019 | | NEPHROLOGY [place] | [address] [place] | hypertension | | | | [address] | [address] [place], [place] | (Primary Dx); Iron | | | | [address] | [address] | deficiency; | | | | [place], [place] | | Secondary | | | | [address] | | hyperparathyroidism | | | | [phone] | | (HCC); CKD (chronic | | [...] | | | Visit | | [address] [place], [place] | | | | | | [address] | | | | | | | [...]
--- OUTSIDE RECORDS SUMMARY | ~2020-08-24 | XMS | Encounter Summary ---
Demographics + + + | Address | [address] | | | [place] [address] | + + + | Home Phone [...] Providers + +------+ + | Care Brick Baker Name | Role | Phone | [...] | | | | ([facility]) | [place], [place] | | | | | | Procedures | [address] | | | | | | VAS Arm | Phone: | | | | | | Bilateral | [phone] | | | | | | Mapping For | Fax: | | | | | | Dialysis | [phone] | | +--------+--------+ + + + + [...] + + | 07/30/ | Telephone | [facility] | Trisha Conner DNP | Referral Consult | | 2019 | | CARDIOTHORACIC | [address] | | | | | SURGERY [address] | [place], [place] | | | | | [address] | [address] | | | | | [place], [place] | | | | | | [address] | | | | | | [phone] | | | +--------+ + + + [...] imaging to be done at [facility] documented in this encounter Plan [...] | | | Visit | | [address] [place] | | | | | | [address] | | | | | | | [...]
--- OUTSIDE RECORDS SUMMARY | ~2020-08-24 | XMS | Encounter Summary ---
Demographics + + + | Address | [address] | | | [place] [address] | + + + | Home Phone [...] Team Providers + +------+ + | Care Stunt Woman Name | Role | Phone | + [...] | | | [address] [place] | [place] [address] | | | | | [place] [address] | | | | | | [phone] | | | +--------+ + + + [...] | | Visit | | [address] [place] | | | | | | [address] | | | | | | | [...]
--- OUTSIDE RECORDS SUMMARY | ~2020-08-24 | XMS | Encounter Summary ---
Demographics + + + | Address | [address] | | | [place] [address] | + + + | Home Phone [...] Providers + +------+ + | Care Nuclear Weapons Specialist Name | Role | Phone | + +------+ + | Mehrdad Bergman | PCP | | + +------+ + Encounter Details +--------+ + + + + | Date | Type | Department | Care Team | Description | +--------+ + + + + | 03/28/ | Orders Only | [facility] | Farrukh Acuna MD | Essential | | 2020 | | NEPHROLOGY [place] | [address] [place] | hypertension | | | | [address] | [address] [place], [place] | (Primary Dx); Anemia | | | | [address] | [address] | of chronic kidney | | | | [place], [place] | | failure, stage 5 | | | | [address] | | (HCC); Persistent | | | | [phone] | | proteinuria; CKD | | | | | | (chronic kidney | | | | | | disease) stage 5, | | | | | | GFR less than 15 | | | | | | ml/min ([facility]) | +--------+ + + + + [...] Visit | | [facility] [place] | | | | | | [address] | | | | | | | [...] 03/28/2021 | | | | | ([facility]) Persistent | | | | | | proteinuria CKD | | | | | | (chronic kidney | | | | | | disease) stage 5, | | | | | | GFR less than 15 | | | | | | ml/min ([facility]) | | + +------+--------+ + + | CBC with | Lab | Routin | Essential | weekly for 3 | | Differential | | e | hypertension Anemia | Occurrences starting | | | | | of chronic kidney | 03/28/2020 until | | | | | failure, stage 5 | 03/28/2021 | | | | | ([facility]) Persistent | | | | | | proteinuria CKD | | | | | | (chronic kidney | | | | | | disease) stage 5, | | | | | | GFR less than 15 | | | | | | ml/min ([facility]) | | + +------+--------+ + + [...] | | | | | ml/min ([facility]) | | + +------+--------+ + + [...] | | | | | ml/min ([facility]) | | + +------+--------+ + + [...]
--- OUTSIDE RECORDS SUMMARY | ~2020-08-24 | XMS | Encounter Summary ---
Demographics + + + | Address | [address] | | | [place] [address] | + + + | Home Phone [...] Providers + +------+ + | Care Hide Buffer Name | Role | Phone | [...] 2019 | | NEPHROLOGY [place] | [facility] | | | | | [address] [place] | Corporate Director Talent Assessment | | | | | [address] [place] | | | | | | [address] | | | | | | [phone] | | | +--------+ + + + [...] Miscellaneous Notes Telephone Encounter - Trinidad Simon, Research Associate Policy - 09/03/2019 12:57 PM PDTSpoke to patient in regards to lab results. She verbalized understanding, I did not have the [facility] copy of the labs but I had them pulled up on [facility]. She insisted on knowing the results and [...] this time.Electr onically signed by Trinidad Simon Research Associate Policy at 09/03/2019 4:26 PM PDTTelephone Encounter - [...] be nice. Please call them back at [phone]. Detailed message may be left on phone: Yes Next OV: 10/04/19 If this is a symptom based call and you were unable to immediately transfer the call to [facility] staff, was caller made aware that if at any timehefeels it is an emergency they should call 911 or go to the nearest emergency room? Yes Is archivist military history needed: no do cumented in this encounter [...] [place] | | | | | | [address] | | | | | | | | +--------+ + + + + documented as of this encounter Visit Diagnoses Not on filedocumented in this encounter"
--- OUTSIDE RECORDS SUMMARY | ~2020-08-24 | XMS | Encounter Summary ---
Demographics + + + | Address | [address] | | | [place] [address] | + + + | Home Phone [...] Team Providers + +------+ + | Care Campground Cleaning Attendant Name | Role | Phone | [...] | | | | [place], [place] | [place], [place] | | | | | [address] | [address] | | | | | [phone] | [phone] | | | | | | | [...] | | | Visit | | [address] [place] | | | | | | [address] | | | | | | | [...]
--- OUTSIDE RECORDS SUMMARY | ~2020-08-24 | XMS | Encounter Summary ---
Demographics + + + | Address | [address] | | | [place] [address] | + + + | Home Phone [...] + +------+ + | Care Forest Fire Management Officer Name | Role | Phone | [...] + + | 11/12/ | Documentati | [facility] | Simon, | Results (11/10/19) | | 2019 | on | NEPHROLOGY [place] | [facility] | | | | | [address] [place] | Head Gauge Unit Operator | | | | | [address] [place], [place] | | | | | | [address] | | | | | | [phone] | | | +--------+ + + + [...] | | | Visit | | [address] [place], [place] | | | | | | [address] | | | | | | | [...]
--- OUTSIDE RECORDS SUMMARY | ~2020-08-24 | XMS | Encounter Summary ---
Demographics + + + | Address | [address] | | | [place] [address] | + + + | Home Phone [...] Providers + +------+ + | Care Conference Reservationist Name | Role | Phone | + +------+ + | Rahul Silva MD | PCP | | + +------+ + Encounter Details +--------+ + + + + | Date | Type | Department | Care Team | Description | +--------+ + + + + | 01/11/ | Orders Only | [facility] | Farrukh Acuna MD | Essential | | 2020 | | NEPHROLOGY [place] | [address] [place] | hypertension | | | | [address] [place] | [address] [place], [place] | (Primary Dx); | | | | [address] [place], [place] | [address] | Persistent | | | | [address] | | proteinuria; Anemia | | | | [phone] | | of chronic kidney | | | | | | failure, stage 5 | | | | | | ([facility]); CKD (chronic | | | | | | kidney disease) | | | | | | stage 5, GFR less | | | | | | than 15 ml/min ([facility]) | +--------+ + + + + [...] 2020 | Office | | [address] [facility] [place] | | | | Visit | | [facility] [place] | | | | | | [address] | | | | | | | [...] | ([facility]) CKD (chronic | | | | | | kidney disease) | | | | | | stage 5, GFR less | | | | | | than 15 ml/min ([facility]) | | + +------+--------+ + + | [...] | ([facility]) CKD (chronic | | | | | | kidney disease) | | | | | | stage 5, GFR less | | | | | | than 15 ml/min ([facility]) | | + +------+--------+ + + | [...] [facility]) | | + +------+--------+ + + documented as of this encounter Visit Diagnoses + + | Diagnosis | + + | Essential hypertension - Primary Unspecified essential hypertension | + + | Persistent proteinuria Proteinuria | + + | Anemia of chronic kidney failure, stage 5 ([facility]) | + + | CKD (chronic kidney disease) stage 5, GFR less than 15 ml/min ([facility]) Chronic kidney | | disease, Stage V | + + documented in this encounter"
--- OUTSIDE RECORDS SUMMARY | ~2020-08-24 | XMS | Encounter Summary ---
Demographics + + + | Address | [address] | | | [place] [address] | + + + | Home Phone [...] Providers + +------+ + | Care Technology Infusion Specialist Name | Role | Phone | + +------+ + | Rahul Silva MD | PCP | | + +------+ + Encounter Details +--------+ + + + + | Date | Type | Department | Care Team | Description | +--------+ + + + + | 10/27/ | Orders Only | [facility] | Conversion | | | 2016 | | NEPHROLOGY [place] | Transaction, | | | | | [address] | Provider Unknown | | | | | [address] [place] | | | | | | [address] | (Fax) | | | | | [phone] | | | +--------+ + + + [...] | | | Visit | | [facility] | | | | | | [address] | | | | | | | [...]
--- OUTSIDE RECORDS SUMMARY | ~2020-08-24 | XMS | Encounter Summary ---
Demographics + + + | Address | [address] | | | [place] [address] | + + + | Home Phone [...] Providers + +------+ + | Care Wood Miller Name | Role | Phone | + [...] + + | 09/17/ | Documentati | [facility] | KevonOly sullivan | Labs Only ([facility] | | 2019 | on | NEPRHOLOGY [place] | V, Medical | 08/24/19) | | | | [address] | Cnc Manufacturing Engineer | | | | | [address] [place], [place] | | | | | | [address] | | | | | | [phone] | | | +--------+ + + + [...] | Visit | | [facility] | | | | | | [address] | | | | | | | [...] | REFERENCE LAB | [address] | [place] | [phone] | | [facility] | | [address] | | + + + + + | REFERENCE LAB | [address] | [place] | [phone] | | [facility] | | [address] | | + + + + + documented in this encounter Visit Diagnoses Not on filedocumented in this encounter"
--- OUTSIDE RECORDS SUMMARY | ~2020-08-24 | XMS | Encounter Summary ---
Demographics + + + | Address | [address] | | | [place] [address] | + + + | Home Phone [...] Team Providers + +------+ + | Care Household Assistant Name | Role | Phone | + +------+ + | Rahul Silva MD | PCP | | + +------+ + Encounter Details +--------+ + + + + | Date | Type | Department | Care Team | Description | +--------+ + + + + | 05/22/ | Orders Only | [facility] | Farrukh Acuna MD | | | 2018 | | NEPHROLOGY [place] | [address] [place] | | | | | [address] [place] | [address] [place], [place] | | | | | [address] [place], [place] | [address] | | | | | [address] | | | | | | [phone] | | | +--------+ + + + [...] | | | Visit | | [address] [place], [place] | | | | | | [address] | | | | | | | [...]
--- OUTSIDE RECORDS SUMMARY | ~2020-08-24 | XMS | Encounter Summary ---
Demographics + + + | Address | [address] | | | [place] [address] | + + + | Home Phone [...] Team Providers + +------+ + | Care Cafe Or Restaurant Manager Name | Role | Phone | + +------+ + | Rahul Silva MD | PCP | | + +------+ + Encounter Details +--------+ + + + + | Date | Type | Department | Care Team | Description | +--------+ + + + + | 02/12/ | Orders Only | [facility] | Conversion | | | 2018 | | NEPHROLOGY [place] | Transaction, | | | | | [address] | Provider Unknown | | | | | [address] [place] | | | | | | [address] | (Fax) | | | | | [phone] | | | +--------+ + + + [...] [place]ALTH[place] | | | | | | [address] | | | | | | | [...]
--- OUTSIDE RECORDS SUMMARY | ~2020-08-24 | XMS | Encounter Summary ---
Demographics + + + | Address | [address] | | | [place] [address] | + + + | Home Phone [...] Team Providers + +------+ + | Care Full Time Babysitter Name | Role | Phone | + [...] + + | 04/06/ | Telephone | [facility] | Farrukh Acuna MD | Other (IV feraheme | | 2020 | | NEPHROLOGY [place] | [address] [place] | and aranesp | | | | [address] [place] | [address] [facility], [place] | question) | | | | [address] [facility], [place] | [address] | | | | | [address] | | | | | | [phone] | | | +--------+ + + + [...] Miscellaneous Notes Telephone Encounter - Trinidad Simon Home Care Companion - 04/06/2020 3:14 PM PDTSt[address] A IV [...] | | | Visit | | [address] [place], [place] | | | | | | [address] | | | | | | | | +--------+ + + + + documented as of this encounter Visit Diagnoses Not on filedocumented in this encounter"
--- OUTSIDE RECORDS SUMMARY | ~2020-08-24 | XMS | Encounter Summary ---
Demographics + + + | Address | [address] | | | [place] [address] | + + + | Home Phone [...] Providers + +------+ + | Care Leather Belt Loop Cutter Name | Role | Phone | [...] + + | 02/27/ | Documentati | [facility] | Simon, | Results (bmp | | 2019 | on | NEPHROLOGY [place] | Trinidad [facility] | 02/24/20) | | | | [address] | [employer] Converter | | | | | [address] | | | | | | [place], [place] | | | | | | [address] | | | | | | [phone] | | | +--------+ + + + [...] 2019 | Office | | [address] [facility] [address] | | | | Visit | | [facility] | | | | | | [address] | | | | | | | [...]
--- OUTSIDE RECORDS SUMMARY | ~2020-08-24 | XMS | Encounter Summary ---
Demographics + + + | Address | [address] | | | [place] [address] | + + + | Home Phone [...] [place] | | | | | [address] | | + + + + + [...] | | 1997 | | Center at [facility] [address] | | | | | Transcribed | [facility] | | | | | | for Health and | | | | | | Healing, Building [address] | | | | | | [place], [place] | | | | | | [address] | | | | | | [phone] | | | +--------+ + + + [...] 04/06/1998 12:00 AM PDTAssociated Order(s): OPERATION RECORD [place] [address], [place] [address] [facility] OPERATION RECORD Med Rec No.: [id number] Date: 04/06/98 Name: Kavon Andujar ATTENDING SURGEON: Galo Arora M.D. Dispatcher Tow Truck, Division of Plastic & Reconstructive mowing machine operator(S): Barry Fofana M.D. Resident, Plastic Surgery PREOPERATIVE [...] needle counts were correct. Galo Arora M.D. Dispatcher Tow Truck, Division of Plastic & Reconstructive Surgery WOJCIECH/pita [...] 04/06/1998 12:00 AM PDT [place] | | [facility] | | [address] [place] [address] | | [facility] | | | | OPERATION RECORD | | | | Med Rec No.: [id number] Date: 04/06/98 | | | | Name: Andujar, Kavon Morris | | | | | | ATTENDING SURGEON: | | Galo Arora M.D. | | Dispatcher Tow Truck, | | Division of Plastic & | | Reconstructive Surgery | | ACID EXTRACTOR(S): | | Barry Fofana M.D. | | [...] | | Galo Arora M.D. | | Dispatcher Tow Truck, | | Division of Plastic & | | Reconstructive Surgery | | WOJCIECH/pita | | | | P | | C: 05/12/98 lv | | cc: | | | + + documented in this encounter Visit Diagnoses Not on filedocumented in this encounter"
--- OUTSIDE RECORDS SUMMARY | ~2020-08-24 | XMS | Encounter Summary ---
Demographics + + + | Address | [address] | | | [place] [address] | + + + | Home Phone [...] Team Providers + +------+ + | Care Steamblaster Name | Role | Phone | + [...] [address] | | | | | [place], [place] | [place], [place] | | | | | [address] | [address] | | | | | [phone] | [phone] | | | | | | | [...] | | | Visit | | [address] [place] | | | | | | [address] | | | | | | | [...]
--- OUTSIDE RECORDS SUMMARY | ~2020-08-24 | XMS | Encounter Summary ---
Demographics + + + | Address | [address] | | | [place] [address] | + + + | Home Phone [...] [place] | | | | | [address] | | + + + + + Care Team Providers + +------+ + | Care Diorama Model Maker Name | Role | Phone [...] [address] | | | | | | [place], [place] | | | | | | [address] | | | | | | [phone] | | | +--------+ + + + [...] as of this encounter Progress Notes Interface, Final Rail Cutter In - 01/09/2007 5:07 AM [facility] CL[facility]IC DATE: 10/03/97 [facility] PAIN MANAGEMENT CENTER - PROGRESS NOTE [...] Vargas D.O. Resident, Anesthesiology Nelson Melara M.D. Machine Precision Etcher, Anesthesiology [facility] NESTOR/dm cc: [place] [address] JESSENIA RODRIGUEZ MD DEPARTMENT OF FAMILY MEDICINE [facility] documented in this encounter Plan of Treatment Not on filedocumented as of this encounter Visit Diagnoses Not on filedocumented in this encounter"
--- OUTSIDE RECORDS SUMMARY | ~2020-08-24 | XMS | Encounter Summary ---
Demographics + + + | Address | [address] | | | [place] [address] | + + + | Home Phone [...] Providers + +------+ + | Care Health Program Specialist Name | Role | Phone | + +------+ + | Rahul Silva MD | PCP | | + +------+ + Encounter Details +--------+ + + + + | Date | Type | Department | Care Team | Description | +--------+ + + + + | 07/14/ | Orders Only | [facility] | Farrukh Acuna MD | | | 2018 | | NEPRHOLOGY [place] | [address] [facility] [address] | | | | | [address] | [address] [place], [place] | | | | | [address] [place], [place] | [address] | | | | | [address] | | | | | | [phone] | | | +--------+ + + + [...] | | | Visit | | [address] [place], [place] | | | | | | [address] | | | | | | | [...]
--- OUTSIDE RECORDS SUMMARY | ~2020-08-24 | XMS | Encounter Summary ---
Demographics + + + | Address | [address] | | | [place] [address] | + + + | Home Phone [...] Team Providers + +------+ + | Care Can Doffer Name | Role | Phone | + +------+ + | Rahul Silva MD | PCP | | + +------+ + Encounter Details +--------+ + + + + | Date | Type | Department | Care Team | Description | +--------+ + + + + | 10/03/ | Orders Only | [facility] | Collin Mirza, | | | 2016 | | NEPHROLOGY [place] | DIRECTOR IT [address] | | | | | [address] | [address] | | | | | [address] [place], [place] | [place] | | | | | [address] | [address] | | | | | [phone] | [phone] | | | | | | | [...] | | | Visit | | [address] [place] | | | | | | [address] | | | | | | | [...]
--- OUTSIDE RECORDS SUMMARY | ~2020-08-24 | XMS | Encounter Summary ---
Demographics + + + | Address | [address] | | | [place] [address] | + + + | Home Phone [...] | 05/22/ | [facility] | [facility] | Nelson Lutz MD | | | 1998 | Encounter | MED CTR GENERIC OP | [address], [place] | | | | | CONV DEPT [address] | [address] | | | | | [place], | [address] | | | | | [place] [address] | | | | | | [phone] | | | +--------+ + + + [...] [place] | | | | | | [address] | | | | | | | | +--------+ + + + + documented as of this encounter Visit Diagnoses Not on filedocumented in this encounter"
--- OUTSIDE RECORDS SUMMARY | ~2020-08-24 | XMS | Encounter Summary ---
Demographics + + + | Address | [address] | | | [place] [address] | + + + | Home Phone [...] Providers + +------+ + | Care Machine Maintenance Technician Name | Role | Phone [...] | | | [address] [place], [place] | [address] | | | | | [address] | | | | | | [phone] | | | +--------+ + + + [...] | | | Visit | | [address] [place], [place] | | | | | | [address] | | | | | | | [...]
--- OUTSIDE RECORDS SUMMARY | ~2020-08-24 | XMS | Encounter Summary ---
Demographics + + + | Address | [address] | | | [place] [address] | + + + | Home Phone [...] Team Providers + +------+ + | Care Plug Paster Name | Role | Phone | + [...] [address] | | | | | [place], [place] | [place], [place] | | | | | [address] | [address] | | | | | [phone] | [phone] | | | | | | | [...] 2020 | Office | | [address] [facility] | | | | Visit | | [address] [place] | | | | | | [address] | | | | | | | [...]
--- OUTSIDE RECORDS SUMMARY | ~2020-08-24 | XMS | Encounter Summary ---
Demographics + + + | Address | [address] | | | [place] [address] | + + + | Home Phone [...] Team Providers + +------+ + | Care Turnstile Collector Name | Role | Phone | [...] + + | 09/01/ | Telephone | [facility] | Farrukh Acuna MD | Other | | 2019 | | NEPRHOLOGY [place] | [address] | | | | | [address] | [address] [place], [place] | | | | | [address] [place], [place] | [address] | | | | | [address] | | | | | | [phone] | | | +--------+ + + + [...] Miscellaneous Notes Telephone Encounter - Trinidad Simon Patient Portal Concierge - 09/02/2019 9:46 AM Henrry Acuna if the patients provider would like to discuss lab results they can call his cell rolf owen at any time. Called to relay message to krys but was unable to reach her I left thomas jennings with information and clinic name and number for her to call back with any questions.Elect ronically signed by Trinidad Simon, Patient Portal Concierge at 09/02/2019 9:48 AM Chandrika e Linda - Laureen Gill V - 09/01/2019 1:22 PM PDTProvider: Akoum/Surgery Concerns patient and daughter called wanting to ask Armand if he can call him to discuss lab result a nd also concerns of the surgery due to his 2 blood clots on his arms. Surgery is on 09/10/19 . Please call them back at [phone]. Detailed message may be left on phone: Yes Last OV: 07/26/19 Next OV: 10/04/19 If this is a symptom based call and you were unable to immediately transfer the call to [facility] staff, was caller made aware that if at any timeshefeels it is an emergency they shoul d call 911 or go to the nearest emergency room? No Is disability case manager needed: no documented in this enc [...] | | | Visit | | [address] [place], [place] | | | | | | [id number] | | | | | | | | +--------+ + + + + documented as of this encounter Visit Diagnoses Not on filedocumented in this encounter"
--- OUTSIDE RECORDS SUMMARY | ~2020-08-24 | XMS | Encounter Summary ---
Demographics + + + | Address | [address] | | | [place] [address] | + + + | Home Phone [...] Providers + +------+ + | Care Space Physicist Name | Role | Phone | [...] | | | [address] | [place] [address] | | | | | [place] [address] | | | | | | [phone] | | | +--------+ + + + [...] [place] | | | | | | [address] | | | | | | | [...]
--- OUTSIDE RECORDS SUMMARY | ~2020-08-24 | XMS | Encounter Summary ---
Demographics + + + | Address | [address] | | | [place] [address] | + + + | Home Phone [...] Team Providers + +------+ + | Care Computing Architect Name | Role | Phone | [...] [address] | | | | | [place], [place] | [place], [place] | | | | | [address] | [address] | | | | | [phone] | | | | | | | [...] | | | Visit | | [address] [place] | | | | | | [address] | | | | | | | [...]
--- OUTSIDE RECORDS SUMMARY | ~2020-08-24 | XMS | Encounter Summary ---
Demographics + + + | Address | [address] | | | [place] [address] | + + + | Home Phone [...] Providers + +------+ + | Care County Home Demonstrator Name | Role | Phone | + [...] [address] | | | | | [place], [place] | [place], [place] | | | | | [address] | [address] | | | | | [phone] | | | | | | | [...] | | | Visit | | [address] [place] | | | | | | [address] | | | | | | | [...]
--- OUTSIDE RECORDS SUMMARY | ~2020-08-24 | XMS | Encounter Summary ---
Demographics + + + | Address | [address] | | | [place] [address] | + + + | Home Phone [...] Team Providers + +------+ + | Care Idea Man Name | Role | Phone | [...] + + | 08/18/ | Refill | [facility] | Sandy Capellan | Medication Refill | | 2019 | | NEPRHOLOGY PAIGE Valadez RN | | | | | [address] | | | | | | [address] [place] | | | | | | [address] | | | | | | [phone] | | | +--------+--------+ + + + [...] They manually faxed re quest to the [place] office now and fax has been received. Spoke with the rig manager and provided updated location/fax numbers for our [facility], and [place] office. They had a file for Dr Acuna with 4 locations in [place], 2 locations in [place], [facility], and [place]. They report they had faxed request to [...] | | Visit | | [address] [place], [place] | | | | | | [address] | | | | | | | [...]
--- OUTSIDE RECORDS SUMMARY | ~2020-08-24 | XMS | Encounter Summary ---
Demographics + + + | Address | [address] | | | [place] [address] | + + + | Home Phone [...] + | 01/13/ | Orders Only | [facility] | Conversion | | | 2016 | | NEPHROLOGY [place] | Transaction, | | | | | [address] | Provider Unknown | | | | | [address] [place] | | | | | | [address] | (Fax) | | | | | [phone] | | | +--------+ + + + [...] | Visit | | [facility] | | | | | | [address] | | | | | | | [...] - 1.030 | EXTERNAL | | | [place], | | | LAB | | | [...] | | | LAB | | | [place] | | | | | + + [...]
[~2020-08-24 19:05] MED LIST changes: +AMLODIPINE BESYL5 MG PO; +BUPROPION XL300 MG PO; +DOXEPIN HCL50 MG PO; +NARCAN4 MG NAS; +NITROGLYCERIN0.4 MG SL; +TRELEGY ELLIPT1 EACH INH
--- OUTSIDE RECORDS SUMMARY | 2020-08-24 19:08 | XMS ---
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 Care History Medical/Surgical 08/16/2020 [facility] - [facility] CONTACTED PCP OFFICE- DISCUSSED ONGOING ED VISIT CONCERNS- - PATIENT WAS LAST SEEN BY PCP ON 08/11/2020, CANCELLED APT ON 08/14/2020 AND HAS A FOLLOW UP APT ON 08/24/2020. - [facility] AND [facility]PULMONARY REHAB AT [facility] NOTIFIED OF ED VISIT 08/15/2020. 05/17/2020 [facility] Called PCP office to verify respiratory medication regimine. Patient has been prescribed DANA\T\#39;s in MDI and nebulizor form and triple therapy for mantanence inhaled medication. Patient\T\#39;s pharmacy history indicates that he is filling his inhaled medications. Will call patient\T\#39;s resident care supervisor to offer inhaler training. 11/10/2019 [facility] - PLEASE MAKE SURE- ALL RECORDS ARE SENT TO DR BARTON-PATIENT ELECTRIC MOTOR ASSEMBLER AND TESTER IN [place]. E.[place] VISIT COUNT (12 MO.) 13 [facility]. TOTAL 13 NOTE: Visits indicate total known visits. ED/UCC VISIT TRACKING (12 MO.) 08/24/2020 19:05 [facility] [place] TYPE: Emergency COMPLAINT: - WEAKNESS 08/16/2020 18:30 [facility] [place] TYPE: Emergency COMPLAINT: - DIFFICULTY BREATHING 08/15/2020 13:19 [facility] [place] TYPE: Emergency COMPLAINT: - SOB DIAGNOSES: - Chronic kidney disease, unspecified - FDC (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 of insulin - Allergy status to other drugs, medicaments and biological sub - Chronic kidney disease, stage 4 (severe) - Nicotine dependence, unspecified, uncomplicated - Dyspnea, unspecified - Hypertensive heart and chronic kidney disease with heart fail - Chronic obstructive pulmonary disease, unspecified - Shortness of breath - Other termite control servicer (current) drug therapy - Type 2 diabetes mellitus with diabetic chronic kidney disease - terminal makeup operator (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 of aspirin - Heart failure, unspecified - Personal history of transient ischemic attack (TIA), and cere 08/01/2020 23:03 [facility] [place] TYPE: Emergency COMPLAINT: - CHEST PAIN DIAGNOSES: - Dependence on renal dialysis - terminal makeup operator (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 of insulin - Chest pain, unspecified - Chronic kidney disease, stage 4 (severe) - Heart failure, unspecified - Hypertensive heart and chronic kidney disease with heart fail - Nicotine dependence, unspecified, uncomplicated - Other jail (current) drug therapy - Type 2 diabetes mellitus with diabetic chronic kidney disease - Chronic obstructive pulmonary disease, unspecified 06/08/2020 06:43 [facility] [place] TYPE: Emergency COMPLAINT: - WEAKNESS, ABD PAIN DIAGNOSES: - Type 2 diabetes mellitus with diabetic chronic kidney disease - Other termite control servicer (current) drug therapy - terminal makeup operator (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 of insulin - Allergy status [...] Chronic obstructive pulmonary disease, unspecified - Other jail (current) drug therapy - Allergy status to other drugs, medicaments and biological sub - terminal makeup operator (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 of insulin - Chest pain, unspecified - Personal history of nicotine dependence - Chronic kidney disease, stage 4 (severe) - Type 2 diabetes mellitus with diabetic chronic kidney disease - Heart failure, unspecified - Hypertensive heart and chronic kidney disease with heart fail 05/11/2020 17:15 [facility] [place] TYPE: Emergency COMPLAINT: - SOB, WEAK, HIGH PULSE RATE DIAGNOSES: - terminal makeup operator (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 of insulin - Heart failure, unspecified - FDC (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 of aspirin - Allergy status to other drugs, medicaments and biological sub - Weakness - Chronic kidney disease, stage 4 (severe) - Hypertensive heart and chronic kidney disease with heart fail - Chronic obstructive pulmonary disease, unspecified - Nicotine dependence, unspecified, uncomplicated - Other termite control servicer (current) drug therapy - Type 2 diabetes [...] with diabetic chronic kidney disease - Other jail (current) drug therapy - Chronic obstructive pulmonary disease, unspecified - Personal history of nicotine dependence 11/04/2019 13:11 [facility] TYPE: Emergency COMPLAINT: - MEMORY PROBLEM DIAGNOSES: - Heart failure, unspecified - Allergy status to other drugs, medicaments and biological sub - Anemia in chronic kidney disease - Other termite control servicer (current) drug therapy - Personal history of nicotine dependence - Hypertensive heart and chronic kidney disease with heart fail - Chronic kidney disease, stage 4 (severe) - FDC (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 of insulin - Acute kidney failure, unspecified - Dependence on other enabling machines and devices - Vascular dementia without behavioral disturbance - FDC (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 of anticoagulants - terminal makeup operator (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 of aspirin - Type 2 [...] dependence - Chest pain, unspecified - terminal makeup operator (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 of aspirin - Personal history of transient ischemic attack (TIA), and cere - FDC (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 of insulin - Hypomagnesemia - Hypertensive heart and chronic kidney disease with heart fail - Chronic kidney disease, stage 4 (severe) - Other jail (current) drug therapy 09/27/2019 12:22 [facility] [place] TYPE: Emergency COMPLAINT: - SOB INPATIENT VISIT TRACKING (12 MO.) 08/16/2020 21:01 [facility] [place] TYPE: Medical Surgical COMPLAINT: - HYPOXIC RESPIRATORY FAILURE DIAGNOSES: - Hyperlipidemia, unspecified - Chronic kidney disease, stage 4 (severe) - Hyperlipidemia, unspecified - Contact with and (suspected) exposure to other viral communic - Chronic kidney disease, stage 4 (severe) - Acute and chronic respiratory failure with hypoxia - Type 2 diabetes mellitus with diabetic chronic kidney disease - FDC (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 of antithrombotics/antiplatelets - Acidosis - Acute respiratory failure with hypoxia - Allergy status to other drugs, medicaments and biological sub - Chronic obstructive pulmonary disease, unspecified - Acquired absence of left leg below knee - Acute and chronic respiratory failure with hypoxia - Opioid dependence, uncomplicated - Contact with and (suspected) exposure to other viral communic - Other jail (current) drug therapy - terminal makeup operator (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 of aspirin - Hypertensive heart and chronic kidney disease with heart fail - Type 2 diabetes mellitus with diabetic chronic kidney disease - Anemia in chronic kidney disease - Obstructive sleep apnea (adult) (pediatric) - Chronic obstructive pulmonary disease, unspecified - Other termite control servicer (current) drug therapy - Nicotine dependence, cigarettes, uncomplicated - FDC (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 of insulin - Allergy status to other drugs, medicaments and biological sub - Dependence on wheelchair - terminal makeup operator (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 of aspirin - Hyperkalemia - Anemia in chronic kidney disease - terminal makeup operator (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 of insulin - Acute systolic (congestive) heart failure - Anxiety disorder, unspecified - Opioid dependence, uncomplicated - Acute systolic (congestive) heart failure - terminal makeup operator (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 of antithrombotics/antiplatelets - Nicotine dependence, cigarettes, uncomplicated - Hypertensive heart and chronic kidney disease with heart fail - Anxiety disorder, unspecified - Hyperkalemia - Acquired absence of left leg below knee - Dependence on wheelchair - Acidosis - Obstructive sleep apnea (adult) (pediatric) 09/27/2019 16:[address] 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
--- NOTE | 2020-08-25 10:11 | EKG ---
[facility] [address] [facility] [place] [address] Signed Sinus rhythm with marked sinus arrhythmia Nonspecific intraventricular block T wave abnormality, consider lateral ischemia Abnormal ECG When compared with ECG of 16-AUG-2020 18:35, QRS duration has increased Nonspecific T wave abnormality now evident in Inferior leads Confirmed by SAHIL GAMEZ MD ([id number]) on 08/25/2020 10:11:50 AM Electronically Signed By: SAHIL GAMEZ MD 08/25/20 1011 PATIENT NAME: LUCASPORFIRIOTONIA CHACON Electrocardiogram DATE OF : 40 PHYSICIAN: SAHIL GAMEZ MD REPORT #: [id number] REPORT IS CONFIDENTIAL AND NOT TO BE RELEASED WITHOUT AUTHORIZATION
== END 2020-08-24 22:10 | disposition short-term general hospital (02) ==
LOC: ED 19:05
DX: I13.2 Hypertensive heart and chronic kidney disease with heart failure and with stage 5 chronic kidney disease, or end stage renal disease (principal); E11.22 Type 2 diabetes mellitus with diabetic chronic kidney disease; I50.9 Heart failure, unspecified; N18.6 End stage renal disease; J44.9 Chronic obstructive pulmonary disease, unspecified; Z86.73 Personal history of transient ischemic attack (TIA), and cerebral infarction without residual deficits; F17.200 Nicotine dependence, unspecified, uncomplicated; Z88.8 Allergy status to other drugs, medicaments and biological substances; Z79.899 Other long term (current) drug therapy; Z79.4 Long term (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 of insulin; Z79.82 Long term (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 of aspirin
CPT/HCPCS: 36600; 71045; 80053; 82803; 83735; 83880; 84484; 85025; 85610; 85730; 93005; 93010; 94660; 96374; 96375; 96376; 99285-25; J1940; J2930

== ENCOUNTER 2020-09-11 19:18 | Emergency (ER) | payer MEDICARE, OTHER ==
[~2020-09-11] VITALS: Ht 172.7 cm; Wt 83.7 kg
--- OUTSIDE RECORDS SUMMARY | ~2020-09-11 | XMS | Encounter Summary ---
Demographics + + + | Address | [address] | | | [place] [address] | + + + | Home Phone | | + + + | Preferred Language | Unknown | + + + | Marital Status | Single | + + + | Yazidism Affiliation | PRO | + + + | Race | White | + + + | Ethnic Group | Not or | + + + Author + + + | Author | [facility] | + + + | Organization | [facility] | + + + | Address | Unknown | + + + | Phone | Unavailable | + + + Support + + + + + | Name | Relationship | Address | Phone | + + + + + | Darci Andujar | VALERIE | [place] | | | | | [address] | | + + + + + Care Team Providers + +------+ + | Care Iron Miner Blasting Name | Role | Phone | + +------+ + PCP | Unavailable | + +------+ + Encounter Details +--------+ + + + + | Date | Type | Department | Care Team | Description | +--------+ + + + + | 11/10/ | Office | General Internal | Note, Outpatient | Progress Note | | 1996 | Visit-Trans | Medicine [address] | Clinic | | | | cribed | [address] | | | | | | Mailcode: L475 | | | | | | Outpatient Clinic | | | | | | [facility], [address] | | | | | | [place], [place] | | | | | | [address] | | | | | | [phone] | | | +--------+ + + + [...] + + documented as of this encounter Progress Notes Interface, Phlebotomy Tech In - 01/06/2007 5:03 AM PST CLINIC DATE: 11/10/97 [facility] - FOLLOW-UP VISIT SUBJECTIVE: Mr. Andujar reports no long lasting decrease in his pain after the spinal differential performed on his last visit. The patient made numerous requests for opiate therapy during the visit today. OBJECTIVE: EXTREMITIES: Palpation of the left thigh stump reveals two areas of exquisite tenderness to palpation, with one being in the vicinity of the cut end of the sciatic nerve, and one in the vicinity of the cut end of the femoral nerve. There is a palpable mass in both areas. There is no significant tenderness in the area of the lateral femoral cutaneous nerve, and there is three to five other smaller, less painful areas along the closure line of the stump. ASSESSMENT: 1. Femoral and sciatic neuromas. 2. Other smaller neuromas present. 3. Abdominal wall neuroma, as noted previously. PLAN: I injected the stump neuromas at the femoral and sciatic sites with a local anesthetic today. PROCEDURE NOTE: After obtaining the informed consent, Mr. Andujar was positioned in the supine position on the examination table. The femoral nerve neuroma was palpated and fixed between two fingers. The skin overlying this neuroma was prepped with alcohol, and a 25 gauge 1.5 inch needle was advanced through the skin, and advanced to just contacting the neuroma, which caused a severe lancinating pain. 10.0 ccs of 0.5% bupivacaine were injected, with a relief of the pain in less than three minutes. At this point, the attention was turned to the sciatic nerve neuroma, which was then palpated and fixed between two fingers. The skin overlying the neuroma was cleansed with alcohol, and using a 25 gauge 1.5 inch needle, the skin was pierced, and the needle was advanced to just contacting the sciatic neuroma. This contact caused severe lancinating pain in the patient, and 10.0 ccs of bupivacaine, 0.5%, was injected, with a relief of the pain in less than three minutes. Following the two injections, the patient's stump was markedly less tender. There were still some areas of tenderness along the closure incision, and the patient's baseline pain was greatly decreased. The patient tolerated the procedure well, and left in a good improved condition. Follow-up will be in two weeks time. The patient was instructed to keep a record of his pain for the next two weeks. OVERALL PLAN: 1. If prolonged relief is obtained, we would then consider a series of blocks, if the patient is willing. 2. If there is no prolonged relief, or if the patient is not willing to undergo a series of blocks, we will then refer the patient to a surgeon, probably a neurosurgeon, for reimplantation of the neuromas to a less exposed area. 3. The patient was started on gabapentin, 400 mg t.i.d. today, in order to aid in decreasing the pain from the smaller neuromas, as well as to improve the patient's overall pain control. No narcotic pain medications were prescribed at this time, due to the patient's history of narcotic medication misuse. Nelson Melara M.D. [employer] Advisor, [facility] MANDY/camryn cc: Robert Carlson M.D. Professor, Vascular Surgery documented in this encounter Plan of Treatment Not on filedocumented as of this encounter Visit Diagnoses Not on filedocumented in this encounter"
--- OUTSIDE RECORDS SUMMARY | ~2020-09-11 | XMS | Encounter Summary ---
Demographics + + + | Address | [address] | | | [place] [address] | + + + | Home Phone | | + + + | Preferred Language | Unknown | + + + | Marital Status | | + + + | Gnosticist Affiliation | 1077 | + + + | Race | White | + + + | Ethnic Group | Not or | + + + Author + + + | Author | [facility] | | | and [place] | + + + | Organization | [facility] | | | [...] Team Providers + +------+ + | Care Performance Specialist Name | Role | Phone | + +------+ + | Rahul Silva MD | PCP | | + +------+ + Encounter Details +--------+ + + + + | Date | Type | Department | Care Team | Description | +--------+ + + + + | 11/13/ | Orders Only | [facility] | Conversion | | | 2016 | | [address] | Transaction, | | | | | [place], [place] | Provider Unknown | | | | | [address] | [phone] | | | | | [phone] | | | +--------+ + + + [...] | | | | | | [place] [address] | | | | | | [phone] | | | | | | | | +--------+ + + + + | 09/19/ | Clinical | Cardiology | | | | 2019 | Support | | | | +--------+ + + + + | 10/30/ | Virtual | Nephrology | Farrukh Acuna MD | | | 2020 | Office | | [address] | | | | Visit | | [address] [place], [place] | | | | | | [address] | | | | | | | | +--------+ + + + + documented as of this encounter Procedures + +--------+ + + + | Procedure Name | Priori | Date/Time | Associated Diagnosis | Comments | | | ty | | | | + +--------+ + + + | RENAL FUNCTION PANEL | Routin | 11/13/2016 | | Results for this | | | e | 4:37 AM | | procedure are in the | | | | PST | | results section. | + +--------+ + + + documented in this encounter Results Renal Function Panel (11/13/2016 4:37 AM PST) + + + + + + | Component | Value | Ref Range | Performed | Pathologist | | | | | At | Signature | + + + + + + | Na | 142 | 135 - 145 | EXTERNAL | | | | | mmol/L | LAB | | + + + + + + | K | 3.6 | 3.5 - 4.9 | EXTERNAL | | | | | mmol/L | LAB | | + + + + + + | Cl | 104 | 99 - 109 mmol/L | EXTERNAL | | | | | | LAB | | + + + + + + | CO2 | 26 | 23 - 32 mmol/L | EXTERNAL | | | | | | LAB | | + + + + + + | Anion Gap | 16 | 5 - 20 mmol/L | EXTERNAL | | | | | | LAB | | + + + + + + | Glucose, | 145 (H) | 65 - 99 mg/dL | EXTERNAL | | | Fasting | | | LAB | | + + + + + + | BUN | 47 (H) | 8 - 25 mg/dL | EXTERNAL | | | | | | LAB | | + + + + + + | Creatinine | 4.2 (H) | 0.70 - 1.30 | EXTERNAL | | | | | mg/dL | LAB | | + + + + + + | Calcium | 7.8 (L) | 8.5 - 10.5 | EXTERNAL | | | | | mg/dL | LAB | | + + + + + + | Albumin | 2.2 (L) | 3.3 - 4.8 g/dL | EXTERNAL | | | | | | LAB | | + + + + + + | PHOSPHORUS | 3.8 | 2.3 - 4.8 mg/dL | EXTERNAL | | | | | | LAB | | + + + + + + | Estimated | 15 (L)Comment: GFR <60: | mL/min/1.73_m2 | EXTERNAL | | | GFR | CHRONIC KIDNEY DISEASE, | | LAB | | | | IF FOUND OVER A 3 MONTH | | | | | | PERIOD. GFR <15: KIDNEY | | | | | | FAILURE. FOR | | | | | | AMERICANS, MULTIPLY THE | | | | | | CALCULATED GFR BY 1.210. | | | | + + + + + + + + | Specimen | + + | | + + + + + | Narrative | Performed At | + + + | Attending/Visit Provider: , GER WATKINS, Cary LOVE, , , , CELSA, | EXTERNAL LAB | | Ordering Provider: , VENKAT MUELLER A, , , , ALISSON, | | + + + + +---------+ + + | Performing | Address | City/State/Zipcode | Phone Number | | Organization | | | | + +---------+ + + | EXTERNAL LAB | | | | + +---------+ + + documented in this encounter Visit Diagnoses Not on filedocumented in this encounter"
--- OUTSIDE RECORDS SUMMARY | ~2020-09-11 | XMS | Encounter Summary ---
Demographics + + + | Address | [address] | | | [place] [address] | + + + | Home Phone [...] + + + | Author | [facility] | | | and [place] | + + + | Organization | [facility] | | | [...] Team Providers + +------+ + | Care Awning Erector Name | Role | Phone | + +------+ + PCP | Unavailable | + +------+ + Encounter Details +--------+ + + + + | Date | Type | Department | Care Team | Description | +--------+ + + + + | 07/18/ | [facility] | [facility] | Nelson Lutz MD | | | 2002 | Encounter | MED CTR GENERIC OP | [address] [place], [place] | | | | | CONV DEPT [address] | [address] | | | | | [place], | [address] | | | | | [place] [address] | | | | | | [phone] | | | +--------+ + + + [...] | | 2019 | Visit | | [facility]NA[facility] LAB [address] | | | | | | [address], | | | | | | [place] [address] | | | | | | [phone] | | | | | | | [...] [place] | | | | | | [address] | | | | | | | | +--------+ + + + + documented as of this encounter Visit Diagnoses Not on filedocumented in this encounter"
--- OUTSIDE RECORDS SUMMARY | ~2020-09-11 | XMS | Encounter Summary ---
Demographics + + + | Address | [address] | | | [place] [address] | + + + | Home Phone | | + + + | Preferred Language | Unknown | + + + | Marital Status | | + + + | Bahai Affiliation | 1077 | + + + [...] Providers + +------+ + | Care Manager Star Name | Role | Phone | + +------+ + | Rahul Silva MD | PCP | | + +------+ + Reason for Visit + +--------+ + | Reason | Onset | Comments | | | Date | | + +--------+ + | Appointment | 09/28/ | | | | 2018 | | + +--------+ + Encounter Details +--------+ + + + + | Date | Type | Department | Care Team | Description | +--------+ + + + + | 09/28/ | Telephone | [facility] | Sandy Gomez, | Appointment | | 2019 | | VASCULAR SURGERY | RN | | | | | [address] | | | | | | [place] | | | | | | [address] | | | | | | [phone] | | | +--------+ + + + [...] this encounter Miscellaneous Notes Telephone Encounter - Sandy Gomez RN - 09/28/2019 4:40 PM PDTReceived call from Leana wiley, patient's daughter who states the patient is currently admitted in [place] and will no t make it to his appt with JUSTIN Corcoran on 09/30/19. She states she will call when he is di scharged to reschedule. documented in this encounter Plan of Treatment +--------+ + + + + | Date | Type | Specialty | Care Team | Description | +--------+ + + + + | 09/19/ | Office | Cardiology | BlasMarch, | | | 2019 | Visit | | ENGINEERING PROFESSOR [address] | | | | | | [address], | | | | | | [place] [address] | | | | | | [phone] | | | | | | | [...] [place] | | | | | | [address] | | | | | | | | +--------+ + + + + documented as of this encounter Visit Diagnoses Not on filedocumented in this encounter"
--- OUTSIDE RECORDS SUMMARY | ~2020-09-11 | XMS | Encounter Summary ---
Demographics + + + | Address | [address] | | | [place] [address] | + + + | Home Phone [...] + + + | Author | [facility] | | | and [place] | + + + | Organization | [facility] | | | [...] Team Providers + +------+ + | Care Hydraulic Press In Operator Name | Role | Phone | + +------+ + | Rahul Silva MD | PCP | | + +------+ + Reason for Visit + +--------+ + | Reason | Onset | Comments | | | Date | | + +--------+ + | Medication Refill | 02/07/ | | | | 2020 | | + +--------+ + Encounter Details +--------+--------+ + + + | Date | Type | Department | Care Team | Description | +--------+--------+ + + + | 02/07/ | Refill | [facility] | Farrukh Acuna MD | Medication Refill | | 2020 | | NEPHROLOGY [place] | [address] | | | | | [address] | [address] [place], [place] | | | | | [address] | [address] | | | | | [place] | | | | | | [address] | | | | | | [phone] | | | +--------+--------+ + + + [...] this encounter Miscellaneous Notes Telephone Encounter - Kanwal Sampson Medical Assistant - 02/09/2020 4:05 PM PDTPer Nestor Acuna he will not fill this medication as it is not a kidney medication. Patient can wait until appointment with PCP to get a redill of medication. Patients daughter verbalized unde rstanding and urena no further questions at this time. ddendum Note - Kanwal Sampson Medica l Crematory Operator - 02/08/2020 5:22 PM PDT Addended by: KANWAL SAMPSON on: 02/08/2020 05:22 P M Modules accepted: Orders Telephone Encounter - Kanwal Sampson Medical Assistant - 02/08/2020 5:19 PM PDTPatien ts daughter called and would like to know if Dr. Acuna can refill his RX for atorvastatin. S he states that his PCP has left and Kavon is not scheduled to see another provider until . I informed patients daughter that Dr. Acuna does not usually fill non renal medicati ons but will pend it to him to see if he can fill it for him. documented in this encounter Plan of Treatment +--------+ + + + + | Date | Type | Specialty | Care Team | Description | +--------+ + + + + | 09/19/ | Office | Cardiology | Odonnellmarch, | | | 2019 | Visit | | TRAVEL RN [address] | | | | | | [address], | | | | | | [place] [address] | | | | | | [phone] | | | | | | | [...] [place] | | | | | | [address] | | | | | | | | +--------+ + + + + documented as of this encounter Visit Diagnoses + + | Diagnosis | + + | Essential hypertension - Primary Unspecified essential hypertension | + + documented in this encounter"
--- OUTSIDE RECORDS SUMMARY | ~2020-09-11 | XMS | Encounter Summary ---
Demographics + + + | Address | [address] | | | [place] [address] | + + + | Home Phone | | + + + | Preferred Language | Unknown | + + + | Marital Status | | + + + | Islam Affiliation | 1077 | + + + [...] Team Providers + +------+ + | Care Internet Developer Name | Role | Phone | + +------+ + | Rahul Silva MD | PCP | | + +------+ + Encounter Details +--------+ + + + + | Date | Type | Department | Care Team | Description | +--------+ + + + + | 11/10/ | Orders Only | [facility] | Conversion | | | 2016 | | NEPHROLOGY [place] | Transaction, | | | | | [address] | Provider Unknown | | | | | [address] [place] [address] | | | | | | [address] | (Fax) | | | | | [phone] | | | +--------+ + + + [...] | 2019 | Visit | | JUSTIN [address] | | | | | | [address], | | | | | | [place] [address] | | | | | | [phone] | | | | | | | [...] | | | Visit | | [address] [place], [place] | | | | | | [address] | | | | | | | | +--------+ + + + + documented as of this encounter Procedures + +--------+ + + + | Procedure Name | Priori | Date/Time | Associated Diagnosis | Comments | | | ty | | | | + +--------+ + + + | IRON AND IRON | Routin | 11/10/2017 | | Results for this | | BINDING CAPACITY | e | 3:00 PM | | procedure are in the | | | | PST | | results section. | + +--------+ + + + | TRANSFERRIN | Routin | 11/10/2017 | | Results for this | | | e | 3:00 PM | | procedure are in the | | | | PST | | results section. | + +--------+ + + + documented in this encounter Results Iron and Iron Binding Capacity (11/10/2017 3:00 PM PST) + + + + + + | Component | Value | Ref Range | Performed | Pathologist | | | | | At | Signature | + + + + + + | Iron | 47.28 | 37 - 160 | EXTERNAL | | | | | | LAB | | + + + + + + | Iron | 16.2 (A) | 20 - 55 | EXTERNAL | | | Saturation | | | LAB | | + + + + + + | TIBC | 292 [...] | | + +---------+ + + Transferrin (11/10/2017 3:00 PM PST) + +--------+ + + + | Component | Value | Ref Range | Performed | Pathologist | | | | | At | Signature | + +--------+ + + + | TRANSFERRIN | 208.57 | 180 - 329 | EXTERNAL | [...]
--- OUTSIDE RECORDS SUMMARY | ~2020-09-11 | XMS | Encounter Summary ---
Demographics + + + | Address | [address] | | | [place] [address] | + + + | Home Phone | | + + + | Preferred Language | Unknown | + + + | Marital Status | | + + + | Gnosticist Affiliation | 1077 | + + + | Race | White | + + + | Ethnic Group | Not or | + + + Author + + + | Author | [facility] | | | and [place] | + + + | Organization | [facility] | | | [...] Team Providers + +------+ + | Care Industrial Engineering Professor Name | Role | Phone | + +------+ + | Rahul Silva MD | PCP | | + +------+ + Encounter Details +--------+ + + + + | Date | Type | Department | Care Team | Description | +--------+ + + + + | 11/07/ | Orders Only | [facility] | Farrukh Acuna MD | | | 2016 | | [address] [facility] | [address] | | | | | [place], [place] | [address] [place], [place] | | | | | [address] | [address] | | | | | [phone] | | | +--------+ + + + [...] | | | | | | [place] [address] | | | | | | [phone] | | | | | | | [...] | | | Visit | | [address] [place], [place] | | | | | | [address] | | | | | | | | +--------+ + + + + documented as of this encounter Procedures + +--------+ + + + | Procedure Name | Priori | Date/Time | Associated Diagnosis | Comments | | | ty | | | | + +--------+ + + + | HEPATITIS B SURFACE | Routin | 11/07/2016 | | Results for this | | AG | e | 9:03 PM | | procedure are in the | | | | PST | | results section. | + +--------+ + + + documented in this encounter Results Hepatitis B Surface Ag (11/07/2016 9:03 PM PST) + + + + + + | Component | Value | Ref Range | Performed | Pathologist | | | | | At | Signature | + + + + + + | HEP B | NON REACTIVE | | EXTERNAL | | | SURFACE | | | LAB | | | ANTIBODY | | | | | + + [...]
--- OUTSIDE RECORDS SUMMARY | ~2020-09-11 | XMS | Encounter Summary ---
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
--- OUTSIDE RECORDS SUMMARY | ~2020-09-11 | XMS | Encounter Summary ---
Demographics + + + | Address | [address] | | | [place] [address] | + + + | Home Phone | | + + + | Preferred Language | Unknown | + + + | Marital Status | | + + + | Gnosticist Affiliation | 1077 | + + + | Race | White | + + + | Ethnic Group | Not or | + + + Author + + + | Author | [facility] | | | and [place] | + + + | Organization | [facility] | | | [...] Team Providers + +------+ + | Care Operations Project Manager Name | Role | Phone | + +------+ + | Rahul Silva MD | PCP | | + +------+ + Encounter Details +--------+ + + + + | Date | Type | Department | Care Team | Description | +--------+ + + + + | 10/08/ | Orders Only | [facility] | Farrukh Acuna MD | | | 2016 | | NEPHROLOGY [place] | [address] | | | | | [address] | [address] [place], [place] | | | | | [address] | [address] | | | | | [address] | | | | | | [phone] | | | +--------+ + + + [...] | | | | | | [place] [address] | | | | | | [phone] | | | | | | | | +--------+ + + + + | 09/19/ | Clinical | Cardiology | | | | 2020 | Support | | | | +--------+ + + + + | 10/30/ | Virtual | Nephrology | Farrukh Acuna MD | | | 2020 | Office | | [address] | | | | Visit | | [address] [place], [place] | | | | | | [address] | | | | | | | | +--------+ + + + + documented as of this encounter Procedures + +--------+ + + + | Procedure Name | Priori | Date/Time | Associated Diagnosis | Comments | | | ty | | | | + +--------+ + + + | BASIC METABOLIC | Routin | 10/08/2016 | | Results for this | | PANEL | e | 2:00 PM | | procedure are in the | | | | PST | | results section. | + +--------+ + + + documented in this encounter Results Basic Metabolic Panel (10/08/2016 2:00 PM PST) + + + + + + | Component | Value | Ref Range | Performed | Pathologist | | | | | At | Signature | + + + + + + | Glucose, | 188 (A) | 70 - 100 mg/dL | EXTERNAL | | | Fasting | | | LAB | | + + + + + + | BUN | 42 (A) | 6 - 23 mg/dL | EXTERNAL | | | | | | LAB | | + + + + + + | Creatinine | 2.39 (A) | 0.70 - 1.18 | EXTERNAL | | | | | mg/dL | LAB | | + + + + + + | BUN/Creatin | 17.6 | 6.0 - 28.6 | EXTERNAL | | | ine Ratio | | | LAB | | + + + + + + | Calcium | 8.6 | 8.4 - 10.2 | EXTERNAL | [...] + + + | Cl | 110 | 95 - 112 mmol/L | EXTERNAL | | | | | | LAB | | + + + + + + | CO2 | 20 | 19 - 31 mmol/L | EXTERNAL | | | | | | LAB | | + + + + + + | Anion Gap | 14.0 | 7 - 21 mmol/L | EXTERNAL | | | | | | LAB | | + + + + + + | Estimated | 27 | mg/dL | EXTERNAL | | | [...]
--- OUTSIDE RECORDS SUMMARY | ~2020-09-11 | XMS | Encounter Summary ---
Demographics + + + | Address | [address] | | | [place] [address] | + + + | Home Phone [...] Team Providers + +------+ + | Care Assistant Baseball Coach Name | Role | Phone | + +------+ + | Rahul Silva MD | PCP | | + +------+ + Encounter Details +--------+ + + + + | Date | Type | Department | Care Team | Description | +--------+ + + + + | 06/12/ | Orders Only | [facility] | Farrukh Acuna MD | | | 2017 | | NEPHROLOGY [place] | [address] | | | | | [address] | [address] [place], [place] | | | | | [address] [place] | [address] | | | | | [address] | | | | | | [phone] | | | +--------+ + + + [...] | | | | | | [place] [address] | | | | | | [phone] | | | | | | | [...] | | | Visit | | [address] [place], [place] | | | | | | [address] | | | | | | | [...]
--- OUTSIDE RECORDS SUMMARY | ~2020-09-11 | XMS | Encounter Summary ---
Demographics + + + | Address | [address] | | | [place] [address] | + + + | Home Phone | | + + + | Preferred Language | Unknown | + + + | Marital Status | | + + + | Confucianism Affiliation | 1077 | + + + | Race | White | + + + | Ethnic Group | Not or | + + + Author + + + | Author | [facility] | | | and [place] | + + + | Organization | [facility] | | [...] Team Providers + +------+ + | Care Petroleum Refinery Laborer Name | Role | Phone | + +------+ + | Mehrdad Bergman | PCP | | + +------+ + Reason for Visit +--------+--------+ + | Reason | Onset | Comments | | | Date | | +--------+--------+ + | Other | 08/25/ | Patient hospitalized | | | 2020 | | +--------+--------+ + Encounter Details +--------+ + + + + | Date | Type | Department | Care Team | Description | +--------+ + + + + | 08/25/ | Telephone | [facility] | Farrukh Acuna MD | Other (Patient | | 2019 | | NEPHROLOGY [place] | [address] | hospitalized) | | | | [address] | [address] [place], [place] | | | | | [address] [place], [place] | [address] | | | | | [address] | | | | | | [phone] | | | +--------+ + + + [...] Miscellaneous Notes Telephone Encounter - Trinidad Simon Motor Vehicle Licence Examiner - 08/25/2020 3:53 PM PDTCalle d provider and informed pf this Dr. Acuna stated that he will be calling patients daughter. el ephone Encounter - Trinidad Simon Medical Assistant - 08/25/2020 3:53 PM PDT----- Mes saadia from Eva Joaquin sent at 08/25/2020 11:15 AM PDT ----- Regarding: Armand / call daughter back Provider: Armand patient daughter called just wants to speak to Dr Acuna she is really worried about her da d who was admitted last night at [facility]. I advised that was out of the office. She still as ked that message be sent. Please call them back at [phone]. Detailed message may be left on phone: Yes do cumented in this encounter Plan of Treatment +--------+ + + + + | Date | Type | Specialty | Care Team | Description | +--------+ + + + + | 09/19/ | Office | Cardiology | [place], | | | 2019 | Visit | | CRYSTAL FLAT GRINDER [address] | | | | | | [address], | | | | | | [place] [address] | | | | | | [phone] | | | | | | | [...] | | | Visit | | [address] [place], [place] | | | | | | [address] | | | | | | | | +--------+ + + + + documented as of this encounter Visit Diagnoses Not on filedocumented in this encounter Additional Health Concerns + + + + + | Infection | Onset Date | Last Indicated | Resolved Time | + + + + + | Rule out COVID-19 | 08/25/2020 | 08/25/2020 | 08/25/2020 10:22 AM | | | | | PDT | + + + + + documented as of this encounter"
--- OUTSIDE RECORDS SUMMARY | ~2020-09-11 | XMS | Encounter Summary ---
Demographics + + + | Address | [address] | | | [place] [address] | + + + | Home Phone [...] Team Providers + +------+ + | Care Stock Turner Name | Role | Phone | + +------+ + | Rahul Silva MD | PCP | | + +------+ + Encounter Details +--------+ + + + + | Date | Type | Department | Care Team | Description | +--------+ + + + + | 10/03/ | Orders Only | [facility] | Collin Mirza, | | | 2016 | | NEPHROLOGY [place] | SIZE MAKER [address] | | | | | [address] | [address] | | | | | [address] [place], [place] | [place] | | | | | [address] | [address] | | | | | [phone] | [phone] | | | | | | | [...] | | | | | | [place] [address] | | | | | | [phone] | | | | | | | [...] | | | Visit | | [address] [place], [place] | | | | | | [address] | | | | | | | [...]
--- OUTSIDE RECORDS SUMMARY | ~2020-09-11 | XMS | Encounter Summary ---
Demographics + + + | Address | [address] | | | [place] [address] | + + + | Home Phone | | + + + | Preferred Language | Unknown | + + + | Marital Status | | + + + | Voodoo Affiliation | 1077 | + + + [...] Team Providers + +------+ + | Care Editor Farm Journal Name | Role | Phone | + +------+ + | Mehrdad Bergman | PCP | | + +------+ + Reason for Visit + +--------+ + | Reason | Onset | Comments | | | Date | | + +--------+ + | Establish Care | 07/30/ | Referral | | | 2019 | | + +--------+ + Encounter Details +--------+ + + + + | Date | Type | Department | Care Team | Description | +--------+ + + + + | 07/30/ | Telephone | [facility] | Brian Orosco MD | Establish Care | | 2019 | | VASCULAR SURGERY | [address] | (Referral) | | | | [address] | [place], [place] | | | | | [place], [place] | [address] | | | | | [address] | [phone] | | | | | [phone] | | | +--------+ + + + [...] this encounter Miscellaneous Notes Telephone Encounter - Jenna Fitzgerald - 07/30/2019 11:18 AM Haritha, is calling regard ing Establish Care (Referral) and would like a call back. Additional Call Details: Charlotte, patient daughter, Calling to schedule from new referral. If this is a symptom based call, was patient offered triage? Not Applicable If this is a symptom based call and you were unable to immediately transfer the call to a p erikavidixie human resources operations director was caller made aware that if at any time he feels it is an emergency they eddi uld call 911 or go to the nearest emergency room? not applicable documented in this encounter Plan of Treatment +--------+ + + + + | Date | Type | Specialty | Care Team | Description | +--------+ + + + + | 09/19/ | Office | Cardiology | [place], | | | 2019 | Visit | | [place] [address] | | | | | | [address], | | | | | | [place] [address] | | | | | | [phone] | | | | | | | | +--------+ + + + + | 09/19/ | Clinical | Cardiology | | | 2019 | Support | | | | +--------+ + + + + | 10/30/ | Virtual | Nephrology | Farrukh Acuna MD | | | 2019 | Office | | [address] | | | | Visit | | [address] [place], [place] | | | | | | [address] | | | | | | | [...]
--- OUTSIDE RECORDS SUMMARY | ~2020-09-11 | XMS | Encounter Summary ---
Demographics + + + | Address | [address] | | | [place] [address] | + + + | Home Phone | | + + + | Preferred Language | Unknown | + + + | Marital Status | | + + + | Church Affiliation | 1077 | + + + [...] Team Providers + +------+ + | Care Family Law Mediator Name | Role | Phone | + [...] [address] | | | | | [place], [place] | [place], [place] | | | | | [address] | [address] | | | | | [phone] | [phone] | | | | | | | [...] | | | | | | [place] [address] | | | | | | [phone] | | | | | | | [...] | | | Visit | | [address] [place], [place] | | | | | | [address] | | | | | | | [...]
--- OUTSIDE RECORDS SUMMARY | ~2020-09-11 | XMS | Encounter Summary ---
Demographics + + + | Address | [address] | | | [place] [address] | + + + | Home Phone [...] Team Providers + +------+ + | Care Cisco Certified Network Professional Name | Role | Phone | + [...] [address] | | | | | [place], [place] | [place], [place] | | | | | [address] | [address] | | | | | [phone] | | | | | | | [...] | | | | | | [place] [address] | | | | | | [phone] | | | | | | | [...] | | | Visit | | [address] [place], [place] | | | | | | [address] | | | | | | | | +--------+ + + + + documented as of this encounter Procedures + +--------+ + + + | Procedure Name | Priori | Date/Time | Associated Diagnosis | Comments | | | ty | | | | + +--------+ + + + | LIPASE | Routin | 11/08/2016 | | Results for this | | | e | 4:37 AM | | procedure are in the | | | | PST | | results section. | + +--------+ + + + documented in this encounter Results Lipase (11/08/2016 4:37 AM PST) + +---------+ + + + | Component | Value | Ref Range | Performed | Pathologist | | | | | At | Signature | + +---------+ + + + | Lipase | 990 (H) | 73 - 393 U/L | [...]
--- OUTSIDE RECORDS SUMMARY | ~2020-09-11 | XMS | Encounter Summary ---
Demographics + + + | Address | [address] | | | [place] [address] | + + + | Home Phone | | + + + | Preferred Language | Unknown | + + + | Marital Status | | + + + | Islam Affiliation | 1077 | + + + | Race | White | + + + | Ethnic Group | Not or | + + + Author + + + | Author | [facility] | | | and [place] | + + + | Organization | [facility] | | [...] Team Providers + +------+ + | Care Electric Fork Operator Name | Role | Phone | + +------+ + | Rahlu Silva MD | PCP | | + +------+ + Encounter Details +--------+ + + + + | Date | Type | Department | Care Team | Description | +--------+ + + + + | 05/22/ | Orders Only | [facility] | Farrukh Acuna MD | | | 2018 | | NEPHROLOGY [place] | [address] | | | | | [address] | [address] [place], [place] | | | | | [address] [place], [place] | [address] | | | | | [address] | | | | | | [phone] | | | +--------+ + + + [...] | | | | | | [place] [address] | | | | | | [phone] | | | | | | | [...] | | | Visit | | [address] [place], [place] | | | | | | [address] | | | | | | | | +--------+ + + + + documented as of this encounter Procedures + +--------+ + + + | Procedure Name | Priori | Date/Time | Associated Diagnosis | Comments | | | ty | | | | + +--------+ + + + | EXTERNAL LAB: DUNIA | Routin | 05/22/2018 | | Results for this | | | e | 1:25 PM | | procedure are in the | | | | PDT | | results section. | + +--------+ + + + | IRON AND IRON | Routin | 05/22/2018 | | Results for this | | BINDING CAPACITY | e | 1:25 PM | | procedure are in the | | | | PDT | | results section. | + +--------+ + + + | PROTEIN/CREATININE | Routin | 05/22/2018 | | Results for this | | RATIO, URINE | e | 1:25 PM | | procedure are in the | | | | PDT | | results section. | + +--------+ + + + | URIC ACID | Routin | 05/22/2018 | | Results for this | | | e | 1:25 PM | | procedure are in the | | | | PDT | | results section. | + +--------+ + + + | PARATHYROID HORMONE, | Routin | 05/22/2018 | | Results for this | | INTACT | e | 1:25 PM | | procedure are in the | | | | PDT | | results section. | + +--------+ + + + | MAGNESIUM | Routin | 05/22/2018 | | Results for this | | | e | 1:25 PM | | procedure are in the | | | | PDT | | results section. | + +--------+ + + + | FERRITIN | Routin | 05/22/2018 | | Results for this | | | e | 1:25 PM | | procedure are in the | | | | PDT | | results section. | + +--------+ + + + | RENAL FUNCTION PANEL | Routin | 05/22/2018 | | Results for this | | | e | 1:25 PM | | procedure are in the | | | | PDT | | results section. | + +--------+ + + + documented in this encounter Results Iron and Iron Binding Capacity (05/22/2018 1:25 PM PDT) + +-------+ + + + | Component | Value | Ref Range | Performed | Pathologist | | | | | At | Signature | + +-------+ + + + | Iron | 60.48 | 37 - 160 | EXTERNAL | | | | | | LAB | | + +-------+ + + + | Iron | 20.9 | 20 - 55 | EXTERNAL | | | Saturation | | | LAB | | + +-------+ + + + | TIBC | 289 | 245 - 400 | EXTERNAL | [...] + +---------+ + + Protein/Creatinine Ratio, Urine (05/22/2018 1:25 PM PDT) + + + + + + | Component | Value | Ref Range | Performed | Pathologist | | | | | At | Signature | + + + + + + | Protein/Cre | 3978.7 (A) | 0 - 150 | EXTERNAL [...] + +---------+ + + External Lab: CBC (05/22/2018 1:25 PM PDT) + + + + + + | Component | Value | Ref Range | Performed | Pathologist | | | | | At | Signature | + + + + + + | WBC | 9.1 | 4.5 - 11.0 10 | EXTERNAL | | | | | | LAB | | + + + + + + | Non- | 3.8 (A) | 4.3 - 5.7 10 | [...] + + + + | Hematocrit, | 33.5 (A) | 41 - 50 % | EXTERNAL | | | POC | | | LAB | | + + + + + + | MCV | 88.2 | 81 - 99 fL | EXTERNAL [...] | + +---------+ + + Uric Acid (05/22/2018 1:25 PM PDT) + +-------+ + + + [...] + +---------+ + + Parathyroid Hormone, Intact (05/22/2018 1:25 PM PDT) + + + + + + | Component | Value | Ref Range | Performed | Pathologist | | | | | At | Signature | + + + + + + | PTH INTACT | 185.3 (A) | 15 - 65 pg/mL | [...] | | + +---------+ + + Magnesium (05/22/2018 1:25 PM PDT) + +---------+ + + + [...] | | + +---------+ + + Ferritin (05/22/2018 1:25 PM PDT) + +-------+ + + + | Component | Value | Ref Range | Performed | Pathologist | | | | | At | Signature | + +-------+ + + + | Ferritin, | 92.61 | 30 - 400 ng/mL | EXTERNAL [...] + +---------+ + + Renal Function Panel (05/22/2018 1:25 PM PDT) + + + + + + | Component | Value | Ref Range | Performed | Pathologist | | | | | At | Signature | + + + + + + | Glucose, | 135 (A) | 70 - 100 mg/dL | EXTERNAL | | | Fasting | | | LAB | | + + + + + + | BUN | 31 (A) | 6 - 23 mg/dL | EXTERNAL | | | | | | LAB | | + + + + + + | Creatinine | 2.33 (A) | 0.7 - 1.18 | EXTERNAL | | | | | mg/dL | LAB | | + + + + + + | PHOSPHORUS | 4.1 | 2.5 - 5.0 mg/dL | EXTERNAL | | | | | | LAB | | + + + + + + | Albumin | 3.1 (A) | 3.5 - 5.0 | EXTERNAL | | | | | | LAB | | + + + + + + | Na | 144 (A) | 132 - 143 | EXTERNAL | [...] + + + | Anion Gap | 16.8 | 7 - 21 mmol/L | EXTERNAL | | | | | | LAB | | + + + + + + | eGFR, | | | EXTERNAL | | | non- | | | LAB | | | Moroccan | | | | | + + + + + + | Phosphorus, | | | EXTERNAL | | | Inorganic | | | LAB | | + + + + + + | BUN/Creatin | 13.3 | 6.0 - 28.6 | EXTERNAL | | | ine Ratio | | | LAB | | + + + + + + | Calcium | 7.9 (A) | 8.4 - 10.2 | EXTERNAL | | | | | mg/dL | LAB | | + + + + + + | Estimated | 27 (A) | 60 mg/dL | EXTERNAL | [...]
--- OUTSIDE RECORDS SUMMARY | ~2020-09-11 | XMS | Encounter Summary ---
Demographics + + + | Address | [address] | | | [place] [address] | + + + | Home Phone | | + + + | Preferred Language | Unknown | + + + | Marital Status | | + + + | Yazdanism Affiliation | 1077 | + + + | Race | White | + + + | Ethnic Group | Not or | + + + Author + + + | Author | [facility] | | | and [place] | + + + | Organization | [facility] | | | [...] Team Providers + +------+ + | Care Mailroom Personnel Name | Role | Phone | + +------+ + PCP | Unavailable | + +------+ + Encounter Details +--------+ + + + + | Date | Type | Department | Care Team | Description | +--------+ + + + + | 05/22/ | [facility] | [facility] | Nelson Lutz MD | | | 1998 | Encounter | MED CTR GENERIC OP | [address], [place] | | | | | CONV DEPT [address] | [address] | | | | | [place], | [address] | | | | | [place] [address] | | | | | | [phone] | | | +--------+ + + + [...] | | 2019 | Visit | | WORKFORCE DEVELOPMENT SPECIALIST [address] | | | | | | [address], | | | | | | [place] [address] | | | | | | [phone] | | | | | | | [...]
--- OUTSIDE RECORDS SUMMARY | ~2020-09-11 | XMS | Encounter Summary ---
Demographics + + + | Address | [address] | | | [place] [address] | + + + | Home Phone [...] Team Providers + +------+ + | Care Chief Order Dispatcher Name | Role | Phone | [...] [address] | | | | | [place], [place] | [place], [place] | | | | | [address] | [address] | | | | | [phone] | | | | | | | [...] | | | | | | [place] [address] | | | | | | [phone] | | | | | | | [...] | | | Visit | | [address] [place], [place] | | | | | | [address] | | | | | | | [...]
--- OUTSIDE RECORDS SUMMARY | ~2020-09-11 | XMS | Encounter Summary ---
Demographics + + + | Address | [address] | | | [place] [address] | + + + | Home Phone | | + + + | Preferred Language | Unknown | + + + | Marital Status | Single | + + + | Confucianism Affiliation | PRO | + + + | Race | White | + + + | Ethnic Group | Not or | + + + Author + + + | Author | [facility] | + + + | Organization | [facility] | + + + | Address | Unknown | + + + | Phone | Unavailable | + + + Support + + + + + | Name | Relationship | Address | Phone | + + + + + | Darci Andujar | [address]ER[address] | [place] | | | | | [address] | | + + + + + Care Team Providers + +------+ + | Care Cadworx Piping Designer Name | Role | Phone | + +------+ + PCP | Unavailable | + +------+ + Encounter Details +--------+ + + + + | Date | Type | Department | Care Team | Description | +--------+ + + + + | 10/03/ | Office | General Internal | Note, Outpatient | Progress Note | | 1996 | Visit-Trans | Medicine [address] | Clinic | | | | cribed | [address] | | | | | | Mailcode: [id number] | | | | | | Outpatient Clinic | | | | | | [facility], [address] | | | | | | [place], [place] | | | | | | [address] | | | | | | [phone] | | | +--------+ + + + [...] as of this encounter Progress Notes Interface, Lead Radiologic Technologist In - 01/09/2007 5:07 AM [facility] DATE: 10/03/97 [facility] - PROGRESS NOTE CHIEF COMPLAINT: Left stump pain and phantom pain of the left leg. HISTORY OF CHIEF COMPLAINT: This is a 57-year-old male with a history of above the knee amputation in 1992. He is status post celiotomy for hepatic, pancreatic, gallbladder, and renal hemangioma in 1988. Pain from that abdominal surgery lead to oral morphine overdose. At that time he developed rhabdomyolysis in the left leg and had a subsequent above the knee amputation (AKA). Also, he had an overdose on p.o. Darvon leading to cerebrovascular accident (CVA) without residual effects. The patient was intubated during that hospital stay. He presents today with the above chief complaint. REVIEW OF RECORDS: The patient is a poor historian. The details of his past medical history and previous modalities used were gathered from his old charts. Past therapies include intravenous (IV) lidocaine, p.o. mexiletine, femoral cutaneous and sciatic block, intrathecal morphine, TENS unit, Tegretol, and amitriptyline. Also, spinal cord stimulator and none have had longstanding efficacy. PAST MEDICAL HISTORY: Significant for hypertension, peripheral vascular disease, peptic ulcer disease, and cerebrovascular accident. He also has a history of femoral fracture in March. PAST SURGICAL HISTORY: Celiotomy as above as well as AKA of the left leg. ALLERGIES: No known drug allergies. MEDS: 1. Salicylate. Uses rarely due to gastrointestinal (GI) upset. 2. Paxil 20 q. h.s. 3. Propulsid 20 mg b.i.d. 4. Trazodone 150 mg q. h.s. 5. Axid 150 mg q. h.s. 6. Catapres 0.2 mg weekly. PHYSICAL EXAMINATION: Patient was alert and oriented times three. Was a poor historian, though. CARDIOVASCULAR: Regular rate and rhythm. No carotid bruits. PULMONARY: Clear to auscultation on the left; positive expiratory wheezes on the right. ABDOMEN: Positive tenderness at incision. LEFT LEG STUMP: Positive incisional tenderness. ASSESSMENT: 1. Neuropathic/phantom pain of the left stump. 2. Neuropathic abdominal incisional pain. 3. Inappropriate narcotic usage. PLAN: Reschedule for diagnostic sub-arachnoid block for further management. Esteban Vargas D.O. Resident, Anesthesiology [place] Melara M.D. Php Architect, Anest[facility]OR/dm cc: [place] [address] JESSENIA RODRIGUEZ MD DEPARTMENT OF FAMILY MEDICINE [facility] documented in this encounter Plan of Treatment Not on filedocumented as of this encounter Visit Diagnoses Not on filedocumented in this encounter"
--- OUTSIDE RECORDS SUMMARY | ~2020-09-11 | XMS | Encounter Summary ---
Demographics + + + | Address | [address] | | | [place] [address] | + + + | Home Phone | | + + + | Preferred Language | Unknown | + + + | Marital Status | | + + + | Hindu Affiliation | 1077 | + + + | Race | White | + + + | Ethnic Group | Not or | + + + Author + + + | Author | [facility] | | | and [place] | + + + | Organization | [facility] | | [...] Providers + +------+ + | Care Hand Chain Maker Name | Role | Phone | + +------+ + | Rahul Silva MD | PCP | | + +------+ + Encounter Details +--------+ + + + + | Date | Type | Department | Care Team | Description | +--------+ + + + + | 02/15/ | Orders Only | [facility] | Conversion | | | 2019 | | NEPHROLOGY [place] | Transaction, | | | | | [address] | Provider Unknown | | | | | [address] [place] | | | | | | [address] | (Fax) | | | | | [phone] | | | +--------+ + + + [...] | | | | | | [place] [address] | | | | | | [phone] | | | | | | | [...] | | | Visit | | [address] [place], [place] | | | | | | [address] | | | | | | | | +--------+ + + + + documented as of this encounter Procedures + +--------+ + + + | Procedure Name | Priori | Date/Time | Associated Diagnosis | Comments | | | ty | | | | + +--------+ + + + | EXTERNAL LAB: CBC | Routin | 02/15/2019 | | Results [...] in this encounter Results External Lab: CBC (02/15/2019 11:29 PM PDT) + + + [...] + + + + | Non- | 3.87 (A) | 4.3 - 5.7 [...]
--- OUTSIDE RECORDS SUMMARY | ~2020-09-11 | XMS | Encounter Summary ---
Demographics + + + | Address | [address] | | | [place] [address] | + + + | Home Phone | | + + + | Preferred Language | Unknown | + + + | Marital Status | | + + + | Mormon Affiliation | 1077 | + + + [...] Team Providers + +------+ + | Care Funeral Service Apprentice Name | Role | Phone | + +------+ + | Rahul Silva MD | PCP | | + +------+ + Encounter Details +--------+ + + + + | Date | Type | Department | Care Team | Description | +--------+ + + + + | 07/30/ | Orders Only | [facility] | Conversion | | | 2016 | | [facility] [place] | Transaction, | | | | | [address] | Provider Unknown | | | | | [address] [place], [place] | [phone] | | | | | [address] | (Fax) | | | | | [phone] | | | +--------+ + + + [...] | | | | | | [place] [address] | | | | | | [phone] | | | | | | | [...] | | | Visit | | [address] [place], [place] | | | | | | [address] | | | | | | | [...]
--- OUTSIDE RECORDS SUMMARY | ~2020-09-11 | XMS | Encounter Summary ---
Demographics + + + | Address | [address] | | | [place] [address] | + + + | Home Phone [...] | Author | [facility] | | | and [place] | + + + | Organization | [facility] | | [...] Team Providers + +------+ + | Care Bike Designer Name | Role | Phone | + +------+ + | Rahul Silva MD | PCP | | + +------+ + Reason for Visit +---------+ + | Reason | Comments | +---------+ + | Results | 09/22/19 | +---------+ + Encounter Details +--------+ + + + + | Date | Type | Department | Care Team | Description | +--------+ + + + + | 10/19/ | Documentati | [facility] | Simon, | Results (09/22/19) | | 2019 | on | NEPHROLOGY [place]SEM | [facility] | | | | | [address] | [address] | | | | | [address] | | | | | | [place] | | | | | | [address] | | | | | | [phone] | | | +--------+ + + + [...] | | | | | | [place] [address] | | | | | | [phone] | | | | | | | [...] [place] | | | | | | [address] | | | | | | | [...] in this encounter Results Basic Metabolic Panel (09/22/2019) + + + + + + | [...]
--- OUTSIDE RECORDS SUMMARY | ~2020-09-11 | XMS | Encounter Summary ---
Demographics + + + | Address | [address] | | | [place] [address] | + + + | Home Phone | | + + + | Preferred Language | Unknown | + + + | Marital Status | | + + + | Church Affiliation | 1077 | + + + | Race | White | + + + | Ethnic Group | Not or | + + + Author + + + | Author | [facility] | | | and [place] | + + + | Organization | [facility] | | [...] Team Providers + +------+ + | Care Personnel And Payroll Technician Name | Role | Phone | + +------+ + | Rahul Silva MD | PCP | | + +------+ + Reason for Visit + +--------+ + | Reason | Onset | Comments | | | Date | | + +--------+ + | Follow-up | 09/13/ | | | | 2019 | | + +--------+ + Encounter Details +--------+ + + + + | Date | Type | Department | Care Team | Description | +--------+ + + + + | 09/13/ | Telephone | [facility] | Terri Aguilar, | Follow-up | | 2019 | | VASCULAR SURGERY | Tape Rules Printing Machine Operator | | | | | [address] | | | | | | [place] | | | | | | [address] | | | | | | [phone] | | | +--------+ + + + [...] this encounter Miscellaneous Notes Telephone Encounter - Terri Aguilar Tape Rules Printing Machine Operator - 09/13/2019 11:01 AM PDTSpoke wi th pt's daughter and pt. Pt is doing okay - there was some increased pain at the site, but t he bandages were removed this morning and the pain is much better. Reminded both of post-op instructions. He is scheduled for f/u with [facility] on 09/30/2019. Encouraged both to call back with any questions/concerns. SamP d ocumented in this encounter Plan of Treatment +--------+ + + + + | Date | Type | Specialty | Care Team | Description | +--------+ + + + + | 09/19/ | Office | Cardiology | BlasMarch, | | | 2019 | Visit | | CORNER CUTTER MACHINE OPERATOR [address] | | | | | | [address] [place], | | | | | | [place] [address] | | | | | | [phone] | | | | | | | [...] [place] | | | | | | [address] | | | | | | | | +--------+ + + + + documented as of this encounter Visit Diagnoses Not on filedocumented in this encounter"
--- OUTSIDE RECORDS SUMMARY | ~2020-09-11 | XMS | Encounter Summary ---
Demographics + + + | Address | [address] | | | [place] [address] | + + + | Home Phone | | + + + | Preferred Language | Unknown | + + + | Marital Status | | + + + | Confucianist Affiliation | 1077 | + + + [...] Team Providers + +------+ + | Care Design Studio Consultant Name | Role | Phone | + +------+ + | Rahul Silva MD | PCP | | + +------+ + Encounter Details +--------+ + + + + | Date | Type | Department | Care Team | Description | +--------+ + + + + | 08/13/ | Orders Only | [facility] | Conversion | | | 2016 | | NEPHROLOGY [facility] | Transaction, | | | | | [address] | Provider Unknown | | | | | [address] | | | | | | [address] | (Fax) | | | | | [phone] | | | +--------+ + + + [...] | | | | | | [place] [address] | | | | | | [phone] | | | | | | | [...] | | | Visit | | [address] [place], [place] | | | | | | [address] | | | | | | | [...]
--- OUTSIDE RECORDS SUMMARY | ~2020-09-11 | XMS | Encounter Summary ---
Demographics + + + | Address | [address] | | | [place] [address] | + + + | Home Phone [...] Team Providers + +------+ + | Care Horse Breaker Name | Role | Phone | + +------+ + | Rahul Silva MD | PCP | | + +------+ + Encounter Details +--------+---------+ + + + | Date | Type | Department | Care Team | Description | +--------+---------+ + + + | 12/06/ | Office | [facility] | Farrukh Acuna MD | CKD (chronic kidney | | 2020 | Visit | NEPHROLOGY [place] | [address] | disease) stage 5, | | | | [address] | [address] [place], [place] | GFR less than 15 | | | | [address] | [address] | ml/min (HCC) | | | | [place], [place] | | (Primary Dx); Anemia | | | | [address] | | of chronic kidney | | | | [phone] | | failure, stage 5 | | | | | | (HCC); Edema of | | | | | | lower extremity; | | | | | | Tobacco dependence | | | | | | syndrome; Vitamin D | | | | | | deficiency; | | | | | | Secondary | | | | | | hyperparathyroidism | | | | | | ([facility]); 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, with | | | | | | long-term current | | | | | | use of insulin | | | | | | (HCC); Essential | | | | | | hypertension; | | | | | | Hypomagnesemia | +--------+---------+ + + + Social History [...] + + + | Blood Pressure | 152/46 | 12/06/2019 2:04 PM | | | | | PST | | + + + + + | Pulse | 74 | 12/06/2019 2:04 PM | | | | | PST [...] + + + + | Weight | 82.4 kg (181 lb 11.2 | 12/06/2019 2:04 PM | | | | oz) | PST | | + + + + + | Height | 172.7 cm (5' 8") | 12/06/2019 2:04 PM | | | | | PST | | + + + + + | Body Mass Index | 27.63 | 12/06/2019 2:04 PM | | | | | PST | | + + + + + documented in this encounter Patient Instructions Patient Instructions Farrukh Acuna MD - 12/06/2019 2:00 PM PSTDiscussions/Recommendations : I discussed today with Mr. Andujar the [...] Also: I see no need for acute MANAGER AMBULATORY. I see no need to send him [...] his Calcitriol to 0.25 mcg daily. I kept his Cholecalciferol (Vitamin D3) to 2,00 0 units daily. I kept him on Ferrous Sulfate 325 mg daily. I warned him about its possible side effects including constipation. he voiced good understanding. I increased his Aranesp to 100 mcg monthly. We will consider sending for stool for occult blood and/or sending him for IV Ferahame i f indicated.* I strongly advised him to keep [...] encounter Progress Notes Farrukh Acuna MD - 12/06/2019 2:00 PM PST Patient Active Problem List [...] the office on an urgent basis in ED F/U today with his ashia ghter + he is here to F/U on his severe CKD & its associated complications. On 05/27/19, his sCr & eGFR were 4.44 & 13 vs [...] 10/2016 with severe pneumonia, severe ZEKE; needed MANAGER AMBULATORY for ~5 weeks b efore renal function recovery mid 12/2016. He was admitted to [facility] for 3 nights in July 2016 for [...] , Rfl: darbepoetin amarjit (ARANESP, ALBUMIN FREE,) 60 mcg/0.3 mL injection, Inject 0.3 mLs unde r the skin Every 30 days., Disp: 0.3 mL, Rfl: 11 docusate-senna (SENOKOT-S) 50-8.6 mg per tablet, Take 2 tablets by mouth Daily., Disp: , Rfl: doxepin (SINEQUAN) 10 mg capsule, 50 mg., Disp: , Rfl: 0 ferrous sulfate 324 (65 Fe) MG EC tablet, Take 65 mg of iron by mouth 4 times daily wi th meals., Disp: , Rfl: insulin aspart (NOVOLOG [...] Disp: , Rfl: 0 Physical Exam: BP 152/46 | Pulse 74 | Ht 1.727 m (5' 8") | Wt 82.4 kg (181 lb 11.2 oz) | BMI 27.63 kg/ m General appearance: Pleasant, not in acute distress. [...] thrill. Lab Results Component Value Date HGB 8.5 (A) 11/29/2019 HGB 10.5 (L) 09/07/2019 HCT 31.0 (L) 09/07/2019 NA 138 11/29/2019 K 4.0 11/29/2019 CL 96 11/29/2019 CO2 28 11/29/2019 CO2 29 08/24/2019 BUN 54 (A) 11/29/2019 CREA 5.49 (A) 11/29/2019 CREA 4.60 (A) 08/09/2019 CREA 4.08 (A) 07/19/2019 CALCIUM 8.4 (A) 11/29/2019 CALCIUM 10.5 09/07/2019 ALBUMIN 3.0 (A) 11/29/2019 PHOS 4.2 08/05/2016 EGFR 10.0 (A) 11/29/2019 FERRITIN 107.3 07/19/2019 PTH 146.6 (A) 05/27/2019 [...] 10/2016 with severe pneumonia, severe ZEKE; needed MANAGER AMBULATORY for ~5 weeks b efore renal function recovery mid 12/2016. RENAL FUNCTION: Below baseline vs 2014. He had a stage 1 ZEKE (acute [...] Also: I see no need for acute MANAGER AMBULATORY. I see no need to send him [...] his Calcitriol to 0.25 mcg daily. I kept his Cholecalciferol (Vitamin D3) to 2,00 0 units daily. I kept him on Ferrous Sulfate 325 mg daily. I warned him about its possible side effects including constipation. he voiced good understanding. I increased his Aranesp to 100 mcg monthly. We will consider sending for stool for occult blood and/or sending him for IV Ferahame i f indicated.* I strongly advised him to keep [...] he comes back i n [address]. [address] Silva for the opportunity to see this high-complexity patient in ED F/U o n an urgent basis today, as we are trying to prevent a hospitalization for severe/worsening renal failure and/or life-threatening electrolytes or volume imbalance. Please do not hesita te to call me at any time with questions or concerns. Truly yours, Farrukh Acuna MD FACP, FAHA documented in this enco unter Plan of Treatment +--------+ + + + + | Date | Type | Specialty | Care Team | Description | +--------+ + + + + | 09/19/ | Office | Cardiology | BlasMarch, | | | 2019 | Visit | | NOCTURNIST PHYSICIAN [address] | | | | | | [address], | | | | | | [place] [address] | | | | | | [phone] | | | | | | | | +--------+ + + + + | 09/19/ | Clinical | Cardiology | | | | 2019 | Support | | | | +--------+ + + + + | 10/30/ | Virtual | Nephrology | Farrukh Acuan MD | | | 2019 | Office | | [address] | | | | Visit | | [address] [place] | | | | | | [address] | | | | | | | | +--------+ + + + + documented as of this encounter Visit Diagnoses + + | Diagnosis | + + | CKD (chronic kidney disease) stage 5, GFR less than 15 ml/min ([facility]) - Primary Chronic | | kidney disease, Stage V | + + | Anemia of chronic kidney failure, stage 5 ([facility]) | + + | Edema of lower extremity Edema | + + | Tobacco dependence syndrome Tobacco use disorder | + + | Vitamin D deficiency Unspecified vitamin D deficiency | + + | Secondary hyperparathyroidism (HCC) Secondary hyperparathyroidism (of renal origin) | + + | Type 2 diabetes mellitus with diabetic nephropathy, with long-term current use of | | insulin (HCC) | + + | Essential hypertension Unspecified essential hypertension | + + | Hypomagnesemia Disorders of magnesium metabolism | + + documented in this encounter
--- OUTSIDE RECORDS SUMMARY | ~2020-09-11 | XMS | Encounter Summary ---
Demographics + + + | Address | [address] | | | [place] [address] | + + + | Home Phone [...] Team Providers + +------+ + | Care Yarn Texturing Machine Operator Name | Role | Phone | + +------+ + | Rahul Silva MD | PCP | | + +------+ + Encounter Details +--------+ + + + + | Date | Type | Department | Care Team | Description | +--------+ + + + + | 11/08/ | Orders Only | [facility] | Olman Toussaint MD | | | 2015 | | [address] | [address] | | | | | [place], [place] | [place], [place] | | | | | [address] | [address] | | | | | [phone] | | | | | | | [...] | | | | | | [place] [address] | | | | | | [phone] | | | | | | | [...] | | | Visit | | [address] [place], [place] | | | | | | [address] | | | | | | | [...]
--- OUTSIDE RECORDS SUMMARY | ~2020-09-11 | XMS | Encounter Summary ---
Demographics + + + | Address | [address] | | | [place] [address] | + + + | Home Phone [...] Team Providers + +------+ + | Care Counter Former Name | Role | Phone | + +------+ + | Rahul Silva MD | PCP | | + +------+ + Encounter Details +--------+ + + + + | Date | Type | Department | Care Team | Description | +--------+ + + + + | 10/28/ | Orders Only | [facility] | Conversion | | | 2016 | | NEPHROLOGY [facility] | Transaction, | | | | | [address] | Provider Unknown | | | | | [address] [place] [address] | | | | | | [address] | (Fax) | | | | | [phone] | | | +--------+ + + + [...] | | | | | | [place] [address] | | | | | | [phone] | | | | | | | [...] | | | Visit | | [address] [place], [place] | | | | | | [address] | | | | | | | [...]
--- OUTSIDE RECORDS SUMMARY | ~2020-09-11 | XMS | Encounter Summary ---
Demographics + + + | Address | [address] | | | [place] [address] | + + + | Home Phone | | + + + | Preferred Language | Unknown | + + + | Marital Status | Single | + + + | Christian Affiliation | PRO | + + + | Race | White | + + + | Ethnic Group | Not or | + + + Author + + + | Author | [facility] | + + + | Organization | [facility] | + + + | Address | Unknown | + + + | Phone | Unavailable | + + + Support + + + + + | Name | Relationship | Address | Phone | + + + + + | Daric Andujar | [place] | [place] | | | | | [address] | | + + + + + Care Team Providers + +------+ + | Care Hand Bander Name | Role | Phone | + [...] [place] | | | | | | [facility], [address] [place] [address] | | | | | | [place], [place] | | | | | | [address] | | | | | | [phone] | | | +--------+ + + + [...] as of this encounter Discharge Summaries Interface, Hand Glass Cutter In - 02/05/2007 1:03 AM PST [address] [address] [facility] MEDICAL SUMMARY OF HOSPITALIZATION Med Rec No.: [id number] Admission Date: 12/28/96 Name: Kavon Andujar Discharge Date: 01/03/97 STAFF PHYSICIAN: Robert Carlson M.D. Professor, Vascular Surgery PRINCIPAL FINAL DIAGNOSIS: Osteophyte of left xkgdl-aym-wzpf amputation stump. ADDITIONAL DIAGNOSES: Phantom pain. PRINCIPAL PROCEDURE: Revision of left doigo-lrz-zggm amputation stump and excision of left stump osteophyte. 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 Since then he has had pain in the stump. On a computed tomography (CT) scan, it was noted that he had a large bone spur and a cyst in his stump site. HOSPITAL COURSE: The patient was admitted on December 28 and underwent revision of his left hsats-tan-cspw amputation stump with excision of his left [...] Normal. 3. DIET: Normal. Nick Noriega M.D. Foundry Engineer, General Surgery Robert Carlson M.D. Professor, Vascular Surgery DOMINIC/jc A cc: RUBIA KNAPP MD [address] [facility] [id number] documented in this encounter Plan of Treatment Not on filedocumented as of this encounter Visit Diagnoses Not on filedocumented in this encounter"
--- OUTSIDE RECORDS SUMMARY | ~2020-09-11 | XMS | Encounter Summary ---
Demographics + + + | Address | [address] | | | [place] [address] | + + + | Home Phone | | + + + | Preferred Language | Unknown | + + + | Marital Status | Single | + + + | Hoahaoism Affiliation | PRO | + + + | Race | White | + + + | Ethnic Group | Not or | + + + Author + + + | Author | [facility] | + + + | Organization | [facility] | + + + | Address | Unknown | + + + | Phone | Unavailable | + + + Support + + + + + | Name | Relationship | Address | Phone | + + + + + | Darci Andujar | [place] | [place] | | | | | [address] | | + + + + + Care Team Providers + +------+ + | Care Ehr Trainer Name | Role | Phone | + +------+ + | Rahul Silva MD | PCP | | + +------+ + Encounter Details +--------+ + + + + | Date | Type | Department | Care Team | Description | +--------+ + + + + | 01/14/ | Office | UNKNOWN DEPARTMENT | Other, Faculty | Progress Note | | 2000 | Visit-Trans | [address] [facility] | [phone] | | | | [address] | [address] | | | | | | [place], [place] | | | | | | [address] | | | +--------+ + + + [...] recommend that he see one of our aircraft engine specialist for further evaluation, and he did appear interested in doing that. 2. Referral to Dr. Willis in Orthopedics. Yuriy Huang M.D. occupational health specialist KYLEE / [id number] / [id number] / [id number] / [id number] C: 01/23/2001 nw documented in this encounter Plan of Treatment Not on filedocumented as of this encounter Visit Diagnoses Not on filedocumented in this encounter"
--- OUTSIDE RECORDS SUMMARY | ~2020-09-11 | XMS | Encounter Summary ---
Demographics + + + | Address | [address] | | | [place] [address] | + + + | Home Phone [...] Team Providers + +------+ + | Care Bundle Sorter Name | Role | Phone | + [...] [address] | | | | | [place], [place] | [place], [place] | | | | | [address] | [address] | | | | | [phone] | [phone] | | | | | | | [...] | | | | | | [place] [address] | | | | | | [phone] | | | | | | | [...] | | | Visit | | [address] [place], [place] | | | | | | [address] | | | | | | | [...]
--- OUTSIDE RECORDS SUMMARY | ~2020-09-11 | XMS | Encounter Summary ---
Demographics + + + | Address | [address] | | | [place] [address] | + + + | Home Phone [...] Team Providers + +------+ + | Care Mixer Pigment Name | Role | Phone | + [...] | | | [address] | [place] [address] | | | | | [place] [address] | | | | | | [phone] | | | +--------+ + + + [...] | | 2019 | Visit | | SAMPLING THEORY TEACHER [address] | | | | | | [address], | | | | | | [place] [address] | | | | | | [phone] | | | | | | | [...]
--- OUTSIDE RECORDS SUMMARY | ~2020-09-11 | XMS | Encounter Summary ---
Demographics + + + | Address | [address] | | | [place] [address] | + + + | Home Phone [...] [place] | | | | | [address] | | + + + + + Care Team Providers + +------+ + | Care Baseball Coach Name | Role | Phone | + +------+ + PCP | Unavailable | + +------+ + Encounter Details +--------+ + + + + | Date | Type | Department | Care Team | Description | +--------+ + + + + | 12/22/ | Results | | Other, Faculty | | | 1997 | Only | | [phone] | | +--------+ + + + + [...] | | | | | | | AP VIEW OF | | | | | | THE HIPS AND LATERAL | | | | | | VIEW OF THE LEFT HIP: | | | | | | 12/22/96 [id number] hours. | | | | | | [...] | | + +---------+ + + | [facility] DEPARTMENT OF | | | [...] | | | | | | | [id number] | | | | | | SPINE, [...]
--- OUTSIDE RECORDS SUMMARY | ~2020-09-11 | XMS | Encounter Summary ---
Demographics + + + | Address | [address] | | | [place] [address] | + + + | Home Phone [...] Team Providers + +------+ + | Care Mobile Development Manager Name | Role | Phone | [...] | | [address] | [place] [address] | | | | | [place] [address] | | | | | | [phone] | | | +--------+ + + + [...] | | | | | | [place] [address] | | | | | | [phone] | | | | | | | [...] | | | Visit | | [address] [place], [place] | | | | | | [address] | | | | | | | [...]
--- OUTSIDE RECORDS SUMMARY | ~2020-09-11 | XMS | Encounter Summary ---
Demographics + + + | Address | [address] | | | [place] [address] | + + + | Home Phone [...] Team Providers + +------+ + | Care Farmworker Name | Role | Phone | + [...] (OTHER) | | 2019 | Procedure | [facility] | [address] | | | | | [address] | [place], [place] | | | | | [address] | [address] | | | | | [place], [place] | [phone] | | | | | [address] | | | | | | [phone] | | | +--------+ + + + [...] [place], | | | | | | [place] [address] | | | | | | [phone] | | | | | | | [...] [place] | | | | | | [address] | | | | | | | | +--------+ + + + + documented as of this encounter Visit Diagnoses Not on filedocumented in this encounter"
--- OUTSIDE RECORDS SUMMARY | ~2020-09-11 | XMS | Encounter Summary ---
Demographics + + + | Address | [address] | | | [place] [address] | + + + | Home Phone | | + + + | Preferred Language | Unknown | + + + | Marital Status | Single | + + + | Nondenominational Affiliation | PRO | + + + | Race | White | + + + | Ethnic Group | Not or | + + + Author + + + | Author | [facility] | + + + | Organization | [facility] | + + + | Address | Unknown | + + + | Phone | Unavailable | + + + Support + + + + + | Name | Relationship | Address | Phone | + + + + + | Darci Andujar | [place] | [place] | | | | | [address] | | + + + + + Care Team Providers + +------+ + | Care Furniture Mechanic Name | Role | Phone | [...] [address] | | | | | | [place] | | | | | | [address] | | | +--------+ + + + [...] as of this encounter Discharge Summaries Interface, Driver Guard In - 04/01/2007 5:08 AM PDT [address] [address] [facility] MEDICAL SUMMARY OF HOSPITALIZATION Med Rec No.: [...] [email or web address] A cc: RUBIA KNAPP MD [address] [facility] [address] documented in this encounter Plan of Treatment Not on filedocumented as of this encounter Visit Diagnoses Not on filedocumented in this encounter"
--- OUTSIDE RECORDS SUMMARY | ~2020-09-11 | XMS | Encounter Summary ---
Demographics + + + | Address | [address] | | | [place] [address] | + + + | Home Phone [...] [place] | | | | | [address] | | + + + + + Care Team Providers + +------+ + | Care Manager Market Research Name | Role | Phone | + +------+ + PCP | Unavailable | + +------+ + Encounter Details +--------+ + + + + | Date | Type | Department | Care Team | Description | +--------+ + + + + | 04/06/ | Procedure - | Dig[facility]ive [facility] | Record, Operation | Operative Report | | 1997 | | Center at [facility] [address] | | | | | Transcribed | [facility] | | | | | | for Health and | | | | | | Healing, [address] | | | | | | [place], [place] | | | | | | [address] | | | | | | [phone] | | | +--------+ + + + [...] + + documented as of this encounter Procedure Notes Record, Operation - 04/06/1998 12:00 AM PDTAssociated Order(s): OPERATION RECORD [place] [address] [address], [place] [address] [facility] OPERATION RECORD Med Rec No.: [id number] Date: 04/06/98 Name: Kavon Andujar ATTENDING SURGEON: Galo Arora M.D. Sales Office Coordinator, Division of Plastic & Reconstructive line assembly utility worker(S): Barry Fofana M.D. Resident, Plastic Surgery PREOPERATIVE DIAGNOSIS: Left above-knee amputation stump pain with possible neuromas. 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 OPERATION(S) PERFORMED: Excision of sciatic and femoral neuromas of left above-knee amputation stump. SPECIMEN(S) REMOVED: Neuroma of sciatic and femoral nerves. 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 He has been seen over the last two years by numerous specialties for chronic stump pain and had injection of presumed neuromas by Dr. Nelson Melara recently with some relief of his pain. He was therefore brought to surgery for exploration of his stump for possible resection of neuromas. FINDINGS: The sciatic nerve had a large neuroma associated with it and an anterior nerve which was probably the vastus medialis branch of the femoral nerve also had a large neuroma. PROCEDURE: The patient was brought to the operating room, given general endotracheal anesthesia, and his left stump was prepped and draped in the usual sterile manner. The previous incision wound was excised with the scalpel blade and electrocautery. Soft tissue flaps were elevated off the underlying muscle and a mass was palpable posteriorly and inferiorly with respect to the bone. This was dissected and it was evident that this was a neuroma. The sciatic nerve proximal to this neuroma was dissected onto normal-appearing nerve several centimeters into the stump. At this point, further exploration was undertaken around the stump and a mass anteriorly and somewhat medial to the bone was identified. This was dissected free and it was apparent to be a neuroma. The proximal normal nerve was then dissected from this neuroma several centimeters proximally. Some bleeding in this area was controlled using 3-0 Vicryl ties. Next it was decided to resect these neuromas and then bury the ends of the nerves in muscle. The neuromas were resected and sent separately to pathology. The sciatic nerve was brought medially and anteriorly up into the anterior portion of the leg. Next some of the anterior quadriceps muscles were dissected as a proximally based flap and shifted medially, thus created a muscle flap which covered the ends of both the sciatic and femoral nerve stumps. The muscle flap was sutured into place using 3-0 Vicryl suture. The wound was then irrigated with normal saline. A flat Ronaldo-De Santiago drain was placed through a stab wound incision laterally and anchored to the skin. The wound was closed using interrupted buried 2-0 Vicryl suture on the soft tissue and dermis followed by interrupted horizontal mattress 2-0 nylon on the skin. The wound was dressed using Xeroform, Kerlix, and David wrap. The patient tolerated the procedure well. Estimated blood loss was 50 cc. Sponge and needle counts were correct. Galo Arora M.D. Sales Office Coordinator, Division of Plastic & Reconstructive Surgery WOJCIECH/pita P C: 05/12/98 lv cc: documented in this encou nter Plan of Treatment Not on filedocumented as of this encounter Procedures + +--------+ + + + | Procedure Name | Priori | Date/Time | Associated Diagnosis | Comments | | | ty | | | | + +--------+ + + + | OPERATION RECORD | | 04/06/1998 | | Results for this | | | | 12:00 AM | | procedure are in the | | | | PDT | | results section. | + +--------+ + + + documented in this encounter Results OPERATION RECORD (04/06/1998 12:00 AM PDT) + + | Procedure Note | + + | 04/06/1998 12:00 AM PDT [place] | | [facility] | | [address] [place] [address] | | [facility] | | | | OPERATION RECORD | | | | Med Rec No.: [id number] Date: 04/06/98 | | | | Name: Andujar, Kavon Morris | | | | | | ATTENDING SURGEON: | | Galo Arora M.D. | | Sales Office Coordinator, | | Division of Plastic & | | Reconstructive Surgery | | DIGITAL SALES ASSISTANT(S): | | Barry Fofana M.D. | | Resident, Plastic Surgery | | PREOPERATIVE DIAGNOSIS: Left above-knee amputation stump pain with | | possible neuromas. | | | | POSTOPERATIVE DIAGNOSIS(ES): Neuroma of cut end of left sciatic and | | femoral branch nerves. | | | | OPERATION(S) PERFORMED: Excision of sciatic and femoral neuromas of | | left above-knee amputation stump. | | | | SPECIMEN(S) REMOVED: Neuroma of sciatic and femoral nerves. | | | | INDICATIONS: This is a patient who has a longstanding | | above-knee amputation on the left side. He | | has been seen over the last | | two years by numerous specialties for chronic stump pain and had injection | | of presumed neuromas by Dr. Nelson Melara recently with some relief of his | | pain. He was therefore brought to surgery for exploration of his stump for | | possible resection of neuromas. | | | | FINDINGS: The sciatic nerve had a large neuroma | | associated with it and an anterior nerve | | which was probably the vastus | | medialis branch of the femoral nerve also had a large neuroma. | | | | PROCEDURE: The patient was brought to the operating | | room, given general endotracheal anesthesia, | | and his left stump was | | prepped and draped in the usual sterile manner. The previous incision wound | | was excised with the scalpel blade and electrocautery. Soft tissue flaps | | were elevated off the underlying muscle and a mass was palpable posteriorly | | and inferiorly with respect to the bone. This was dissected and it was | | evident that this was a neuroma. The sciatic nerve proximal to this neuroma | | was dissected onto normal-appearing nerve several centimeters into the | | stump. At this point, further exploration was undertaken around the stump | | and a mass anteriorly and somewhat medial to the bone was identified. This | | was dissected free and it was apparent to be a neuroma. The proximal normal | | nerve was then dissected from this neuroma several centimeters proximally. | | Some bleeding in this area was controlled using 3-0 Vicryl ties. Next it was | | decided to resect these neuromas and then bury the ends of the nerves in | | muscle. The neuromas were resected and sent separately to pathology. The | | sciatic nerve was brought medially and anteriorly up into the anterior | | portion of the leg. Next some of the anterior quadriceps muscles were | | dissected as a proximally based flap and shifted medially, thus created a | | muscle flap which covered the ends of both the sciatic and femoral nerve | | stumps. The muscle flap was sutured into place using 3-0 Vicryl suture. The | | wound was then irrigated with normal saline. A flat Ronaldo-De Santiago drain was | | placed through a stab wound incision laterally and anchored to the skin. | | | | The wound was closed using interrupted buried 2-0 Vicryl suture on the soft | | tissue and dermis followed by interrupted horizontal mattress 2-0 nylon on | | the skin. The wound was dressed using Xeroform, Kerlix, and David wrap. The | | patient tolerated the procedure well. Estimated blood loss was 50 cc. Sponge | | and needle counts were correct. | | | | | | | | | | Galo Arora M.D. | | Sales Office Coordinator, | | Division of Plastic & | | Reconstructive Surgery | | WOJCIECH/pita | | | | P | | C: 05/12/98 lv | | cc: | | | + + documented in this encounter Visit Diagnoses Not on filedocumented in this encounter"
--- OUTSIDE RECORDS SUMMARY | ~2020-09-11 | XMS | Encounter Summary ---
Demographics + + + | Address | [address] | | | [place] [address] | + + + | Home Phone [...] Team Providers + +------+ + | Care Seismic Prospecting Observer Name | Role | Phone | + [...] + + | 08/25/ | Telephone | [facility] | Brian Orosco MD | New Patient (08/26 | | 2019 | | VASCULAR SURGERY | [address] | appointment) | | | | [address] | [place], [place] | | | | | [place], [place] | [address] | | | | | [address] | [phone] | | | | | [phone] | | | +--------+ + + + [...] Miscellaneous Notes Telephone Encounter - Megan Blackwell Shot Tube Machine Tender - 08/25/2019 2:08 PM PDTConfirmed appointment for tomorrow. Electronically signed by Megan N Ross, Shot Tube Machine Tender at 08/25 2:09 PM PDTTelephone Encounter - Jo AnnHarleen Damian - 08/25/2019 1:21 PM Haritha, is calling regarding New Patient (08/26 appointment) [...] transfer the call to a damian munoz torch straightener and heater was caller made aware that if at [...] | | 2019 | Visit | | [facility] [address] | | | | | | [address] [place], | | | | | | [place] [address] | | | | | | [phone] | | | | | | | [...] | | | Visit | | [address] [place], [place] | | | | | | [address] | | | | | | | [...]
--- OUTSIDE RECORDS SUMMARY | ~2020-09-11 | XMS | Encounter Summary ---
Demographics + + + | Address | [address] | | | [place] [address] | + + + | Home Phone [...] Providers + +------+ + | Care Geochemical Laboratory Technician Name | Role | Phone | + +------+ + PCP | Unavailable | + +------+ + Encounter Details +--------+ + + + + | Date | Type | Department | Care Team | Description | +--------+ + + + + | 12/31/ | Hospital | [facility] | | | | 2000 | Encounter | MED CTR XRAY [address] | | | | | | [place] | | | | | | [place] [address] | | | | | | [phone] | | | +--------+ + + + [...] | 09/19/ | Office | Cardiology | Blas Seble, | | | 2019 | Visit | | [address] | | | | | | [address] [place], | | | | | | [place] [address] | | | | | | [phone] | | | | | | | [...] [place] | | | | | | [address] | | | | | | | | +--------+ + + + + documented as of this encounter Visit Diagnoses Not on filedocumented in this encounter"
--- OUTSIDE RECORDS SUMMARY | ~2020-09-11 | XMS | Encounter Summary ---
Demographics + + + | Address | [address] | | | [place] [address] | + + + | Home Phone [...] Providers + +------+ + | Care Emergency Veterinary Technician Name | Role | Phone | + +------+ + | Rahul Silva MD | PCP | | + +------+ + Encounter Details +--------+ + + + + | Date | Type | Department | Care Team | Description | +--------+ + + + + | 07/14/ | Orders Only | [facility] | Conversion | | | 2018 | | [place] | Transaction, | | | | | [address] | Provider Unknown | | | | | [address] [place], [place] | [phone] | | | | | [address] | (Fax) | | | | | [phone] | | | +--------+ + + + [...] | | | | | | [place] [address] | | | | | | [phone] | | | | | | | [...] | | | Visit | | [address] [place], [place] | | | | | | [address] | | | | | | | | +--------+ + + + + documented as of this encounter Procedures + +--------+ + + + | Procedure Name | Priori | Date/Time | Associated Diagnosis | Comments | | | ty | | | | + +--------+ + + + | LIPID PANEL | Routin | 07/14/2018 | | Results for this | | | e | 12:00 AM | | procedure are in the | | | | PDT | | results section. | + +--------+ + + + | HEMOGLOBIN A1C | Routin | 07/14/2018 | | Results for this | | | e | 12:00 AM | | procedure are in the | | | | PDT | | results section. | + +--------+ + + + documented in this encounter Results Hemoglobin A1C (07/14/2018 12:00 AM PDT) + +-------+ + + + | Component | Value | Ref Range | Performed | Pathologist | | | | | At | Signature | + +-------+ + + + | Hemoglobin | 6.9 | % | EXTERNAL | | | A1c | | | LAB | | + +-------+ + + + + + | Specimen | + + | Blood specimen | | (specimen) | + + + + + | Narrative | Performed At | + + + | ORDERING PROVIDER: [facility] | EXTERNAL LAB | + + + + +---------+ + + | Performing | Address | City/State/Zipcode | Phone Number | | Organization | | | | + +---------+ + + | EXTERNAL LAB | | | | + +---------+ + + Lipid Panel (07/14/2018 12:00 AM PDT) + +---------+ + + + | Component | Value | Ref Range | Performed | Pathologist | | | | | At | Signature | + +---------+ + + + | Cholesterol | 117 | mg/dL | EXTERNAL | | | | | | LAB | | + +---------+ + + + | Triglycerid | 159 (A) | 30 - 150 mg/dL | EXTERNAL | | | es | | | LAB | | + +---------+ + + + | HDL | 31.1 | mg/dl | EXTERNAL | | | | | | LAB | | + +---------+ + + + | LDL, | 54 | mg/dL | EXTERNAL | | | Calculated | | | LAB | | + +---------+ + + + | LDl/HDL | | | EXTERNAL | | | Ratio | | | LAB | | + +---------+ + + + | Chol/HDL | 3.8 | | EXTERNAL | | | Ratio | | | LAB | | + +---------+ + + + | VLDL | 32 | 4 - 40 mg/dL | EXTERNAL | | | | | | LAB | | + +---------+ + + + | Non HDL | 86 | | EXTERNAL | | | Chol. | | | LAB | | | (LDL+VLDL) | | | | | + +---------+ + + + + + | Specimen | + + | Blood specimen | | (specimen) | + + + + + | Narrative | Performed At | + + + | ORDERING PROVIDER:[facility] | EXTERNAL LAB | + + + + +---------+ + + | Performing | Address | City/State/Zipcode | Phone Number | | Organization | | | | + +---------+ + + | EXTERNAL LAB | | | | + +---------+ + + documented in this encounter Visit Diagnoses Not on filedocumented in this encounter"
--- OUTSIDE RECORDS SUMMARY | ~2020-09-11 | XMS | Encounter Summary ---
Demographics + + + | Address | [address] | | | [place] [address] | + + + | Home Phone [...] Team Providers + +------+ + | Care Telesales Manager Name | Role | Phone | [...] + + | 08/10/ | Telephone | [facility] | Brian Orosco MD | Other (orders ) | | 2019 | | VASCULAR SURGERY | [address] | | | | | [address] | [place], [place] | | | | | [place], [place] | [address] | | | | | [address] | [phone] | | | | | [phone] | | | +--------+ + + + [...] transfer the call to a rolf munoz pantry goods worker was caller made aware that if at [...] [place], | | | | | | [place] [address] | | | | | | [phone] | | | | | | | | +--------+ + + + + | 09/19/ | Clinical | Cardiology | | | 2019 | Support | | | | +--------+ + + + + | 10/30/ | Virtual | Nephrology | Farrukh Acuna MD | | | 2019 | Office | | [address] | | | | Visit | | [address] [place], [place] | | | | | | [address] | | | | | | | [...]
--- OUTSIDE RECORDS SUMMARY | ~2020-09-11 | XMS | Encounter Summary ---
Demographics + + + | Address | [address] | | | [place] [address] | + + + | Home Phone [...] Team Providers + +------+ + | Care Pharmacy Services Director Name | Role | Phone | + +------+ + | Rahul Silva MD | PCP | | + +------+ + Encounter Details +--------+ + + + + | Date | Type | Department | Care Team | Description | +--------+ + + + + | 02/16/ | Abstract | [facility] | Jose L Magana, | PAOLO (obstructive | | 2013 | | PULMONARY [address] | MD [address] | sleep apnea) | | | | [place], | [place] | (Primary Dx); COPD | | | | [place] [address] | [address] | (chronic obstructive | | | | [phone] | | pulmonary disease) | | | | | | ([facility]) | +--------+ + + + [...] | | 2019 | Visit | | [facility] [address] | | | | | | [address] [place], | | | | | | [place] [address] | | | | | | [phone] | | | | | | | [...] [place] | | | | | | [address] | | | | | | | [...]
--- OUTSIDE RECORDS SUMMARY | ~2020-09-11 | XMS | Encounter Summary ---
Demographics + + + | Address | [address] | | | [place] [address] | + + + | Home Phone [...] Team Providers + +------+ + | Care Instructional Design Manager Name | Role | Phone | [...] | | [address] [place] | [place] [address] | | | | | [place] [address] | | | | | | [phone] | | | +--------+ + + + [...] | | 2019 | Visit | | GASKET SUPERVISOR [address] | | | | | | [address] [place], | | | | | | [place] [address] | | | | | | [phone] | | | | | | | [...] | | | Visit | | [address] [place], [place] | | | | | | [address] | | | | | | | [...]
--- OUTSIDE RECORDS SUMMARY | ~2020-09-11 | XMS | Encounter Summary ---
Demographics + + + | Address | [address] | | | [place] [address] | + + + | Home Phone [...] Team Providers + +------+ + | Care Housing Installer Name | Role | Phone | [...] Other | | 2019 | | [facility] | [address] | | | | | [address] | [address] [place], [place] | | | | | [address] [place] [address] | [id number] | | | | | [address] | | | | | | [phone] | | | +--------+ + + + [...] Miscellaneous Notes Telephone Encounter - Trinidad Simon Associate Merchant - 10/07/2019 10:15 AM PSTInfor med patients daughter of provider message. She verbalized understanding and had no further q uestions at this time. Electronically signed by Trinidad Simon Associate Merchant at 05/2019 10:17 AM PSTTelephone Encounter - [...] in a week.Electronically signed by Trinidad Simon Associate Merchant logan t 10/07/2019 10:17 AM PSTTelephone Encounter [...] take medication. Please call them back at [phone]. Detailed message may be left on phone: Yes Last OV: 10/04/19 Next OV: 12/06/19 If this is a symptom based call and you were unable to immediately transfer the call to [facility] staff, was caller made aware that if at any timeshefeels it is an emergency they shoul d call 911 or go to the nearest emergency room? N/A Is shipyard painter helper needed: no documented in this enc ounter [...] | | | | | | [place] [address] | | | | | | [phone] | | | | | | | [...] [place] | | | | | | [address] | | | | | | | | +--------+ + + + + documented as of this encounter Visit Diagnoses Not on filedocumented in this encounter"
--- OUTSIDE RECORDS SUMMARY | ~2020-09-11 | XMS | Encounter Summary ---
Demographics + + + | Address | [address] | | | [place] [address] | + + + | Home Phone [...] Providers + +------+ + | Care Hospital Account Liaison Name | Role | Phone | + +------+ + | Mehrdad Bergman | PCP | | + +------+ + Encounter Details +--------+ + + + + | Date | Type | Department | Care Team | Description | +--------+ + + + + | 03/28/ | Orders Only | [facility] | Farrukh Acuna MD | Essential | | 2020 | | NEPHROLOGY [place] | [address] | hypertension | | | | [address] | [address] [place], [place] | (Primary Dx); Anemia | | | | [address] | [address] | of chronic kidney | | | | [place], [place] | | failure, stage 5 | | | | [address] | | (HCC); Persistent | | | | [phone] | | proteinuria; CKD | | | | | | (chronic kidney | | | | | | disease) stage 5, | | | | | | GFR less than 15 | | | | | | ml/min ([facility]) | +--------+ + + + + Social [...] | | | | | | [place] [address] | | | | | | [phone] | | | | | | | [...] [place] | | | | | | [address] | | | | | | | | +--------+ + + + + + +------+--------+ + + | Name | Type | Priori | Associated Diagnoses | Order Schedule | | | | ty | | | + +------+--------+ + + | Basic Metabolic | Lab | Routin | Essential | weekly for 3 | | Panel | | e | hypertension Anemia | Occurrences starting | | | | | of chronic kidney | 03/28/2020 until | | | | | failure, stage 5 | 03/28/2021 | | | | | (HCC) Persistent | | | | | | proteinuria CKD | | | | | | (chronic kidney | | | | | | disease) stage 5, | | | | | | GFR less than 15 | | | | | | ml/min (HCC) | | + +------+--------+ + + | CBC with | Lab | Routin | Essential | weekly for 3 | | Differential | | e | hypertension Anemia | Occurrences starting | | | | | of chronic kidney | 03/28/2020 until | | | | | failure, stage 5 | 03/28/2021 | | | | | (HCC) Persistent | | | | | | proteinuria CKD [...] | | e | hypertension Anemia | 05/28/2020, Expires: | | | | | of chronic kidney | 03/28/2021 | | | | | failure, stage 5 | | | | | | ([facility]) Persistent | | | | | | proteinuria CKD [...] | Differential | | e | hypertension Anemia | 05/28/2020, Expires: | | | | | of chronic kidney | 03/28/2021 | | | | | failure, stage 5 | | | | | | (HCC) Persistent | | | | | | proteinuria CKD [...] | | e | hypertension Anemia | 05/28/2020, Expires: | | | | | of chronic kidney | 03/28/2021 | | | | | failure, stage 5 | | | | | | ([facility]) Persistent | | | | | | proteinuria CKD [...] | | e | hypertension Anemia | 05/28/2020, Expires: | | | | | of chronic kidney | 03/28/2021 | | | | | failure, stage 5 | | | | | | ([facility]) Persistent | | | | | | proteinuria CKD [...] | Intact | | e | hypertension Anemia | 05/28/2020, Expires: | | | | | of chronic kidney | 03/28/2021 | | | | | failure, stage 5 | | | | | | ([facility]) Persistent | | | | | | proteinuria CKD [...] Ratio, Urine | | e | hypertension Anemia | 05/28/2020, Expires: | | | | | of chronic kidney | 03/28/2021 | | | | | failure, stage 5 | | | | | | ([facility]) Persistent | | | | | | proteinuria CKD | | | | | | (chronic kidney | | | | | | disease) stage 5, | | | | | | GFR less than 15 | | | | | | ml/min ([facility]) | | + +------+--------+ + + documented as of this encounter Visit Diagnoses + + | Diagnosis | + + | Essential hypertension - Primary Unspecified essential hypertension | + + | Anemia of chronic kidney failure, stage 5 ([facility]) | + + | Persistent proteinuria Proteinuria | + + | CKD (chronic kidney disease) stage 5, GFR less than 15 ml/min ([facility]) Chronic kidney | | disease, Stage V | + + documented in this encounter"
--- OUTSIDE RECORDS SUMMARY | ~2020-09-11 | XMS | Encounter Summary ---
Demographics + + + | Address | [address] | | | [place] [address] | + + + | Home Phone [...] Team Providers + +------+ + | Care Artist Relationship Manager Name | Role | Phone | + +------+ + | Rahul Silva MD | PCP | | + +------+ + Encounter Details +--------+ + + + + | Date | Type | Department | Care Team | Description | +--------+ + + + + | 12/07/ | Orders Only | [facility] | Farrukh Acuna MD | Essential | | 2020 | | NEPHROLOGY [place] | [address] | hypertension | | | | [address] | [address] [place], [place] | (Primary Dx); | | | | [address] [facility], [place] | [address] | Secondary | | | | [address] | | hyperparathyroidism | | | | [phone] | | (HCC); Anemia of | | | | | | chronic kidney | | | | | | failure, stage 5 | | | | | | ([facility]); CKD (chronic | | | | | | kidney disease) | | | | | | stage 5, GFR less | | | | | | than 15 ml/min | | | | | | ([facility]); Persistent | | | | | | [...] | | 2019 | Visit | | DEPUTY SHERIFF [address] | | | | | | [address], | | | | | | [place] [address] | | | | | | [phone] | | | | | | | [...] [place] | | | | | | [address] | | | | | | | [...] | | | | | | ml/min ([facility]) | | | | | | Persistent [...] | | | | | | ml/min ([facility]) | | | | | | Persistent [...] | | | | | | ml/min ([facility]) | | | | | | Persistent [...] | | | | | | ml/min ([facility]) | | | | | | Persistent [...] 5 | | | | | | ([facility]) CKD (chronic | | | | | | kidney disease) | | | | | | stage 5, GFR less | | | | | | than 15 ml/min ([facility]) | | + +------+--------+ + + | Ferritin | Lab | Routin | Essential | Expected: | | | | e | hypertension Anemia | 01/07/2020, Expires: | | | | | of chronic kidney | 12/07/2020 | | | | | failure, stage 5 | | | | | | ([facility]) CKD (chronic | | | | | | kidney disease) | | | | | | stage 5, GFR less | | | | | | than 15 ml/min ([facility]) | | + +------+--------+ + + | Parathyroid Hormone, | Lab | Routin | Essential | Expected: | | Intact | | e | hypertension | 01/07/2020, Expires: | | | | | Secondary | 12/07/2020 | | | | | hyperparathyroidism | | | | | | ([facility]) CKD (chronic | | | | | | kidney disease) | | | | | | stage 5, GFR less | | | | | | than 15 ml/min ([facility]) | | | | | | Persistent [...] Anemia of chronic kidney failure, stage 5 ([facility]) | + + | CKD (chronic kidney disease) stage 5, GFR less than 15 ml/min ([facility]) Chronic kidney | | disease, Stage V | + + | Persistent proteinuria Proteinuria | + + documented in this encounter"
--- OUTSIDE RECORDS SUMMARY | ~2020-09-11 | XMS | Encounter Summary ---
Demographics + + + | Address | [address] | | | [place] [address] | + + + | Home Phone [...] Providers + +------+ + | Care Air Quality Technician Name | Role | Phone | + +------+ + | Rahul Silva MD | PCP | | + +------+ + Encounter Details +--------+ + + + + | Date | Type | Department | Care Team | Description | +--------+ + + + + | 10/27/ | Orders Only | [facility] | Conversion | | | 2016 | | NEPHROLOGY [place] | Transaction, | | | | | [address] | Provider Unknown | | | | | [address] | | | | | | [address] | (Fax) | | | | | [phone] | | | +--------+ + + + [...] | | | | | | [place] [address] | | | | | | [phone] | | | | | | | [...] | | | Visit | | [address] [place], [place] | | | | | | [address] | | | | | | | [...]
--- OUTSIDE RECORDS SUMMARY | ~2020-09-11 | XMS | Encounter Summary ---
Demographics + + + | Address | [address] | | | [place] [address] | + + + | Home Phone [...] Providers + +------+ + | Care Pipe Cleaning Machine Operator Name | Role | Phone [...] | | | [address] | [place] [address] | | | | | [place] [address] | | | | | | [phone] | | | +--------+ + + + [...] | | 2019 | Visit | | HOUSING ASSISTANT [address] | | | | | | [address], | | | | | | [place] [address] | | | | | | [phone] | | | | | | | [...]
--- OUTSIDE RECORDS SUMMARY | ~2020-09-11 | XMS | Encounter Summary ---
Demographics + + + | Address | [address] | | | [place] [address] | + + + | Home Phone [...] Team Providers + +------+ + | Care Prop Maker Name | Role | Phone | + +------+ + | Mehrdad Bergman | PCP | | + +------+ + Reason for Visit +---------+ + | Reason | Comments | +---------+ + | Results | bmp 02/24/20 | +---------+ + Encounter Details +--------+ + + + + | Date | Type | Department | Care Team | Description | +--------+ + + + + | 02/27/ | Documentati | [facility] | Simon, | Results (bmp | | 2019 | on | NEPHROLOGY [place] | [facility] | 02/24/20) | | | | [address] | Sheeting Puller | | | | | [address] | | | | | | [place], [place] | | | | | | [address] | | | | | | [phone] | | | +--------+ + + + [...] | | 2019 | Visit | | POWER HAMMER OPERATOR [address] | | | | | | [address], | | | | | | [place] [address] | | | | | | [phone] | | | | | | | [...] [place] | | | | | | [address] | | | | | | | | +--------+ + + + + documented as of this encounter Procedures + +--------+ + + + | Procedure Name | Priori | Date/Time | Associated Diagnosis | Comments | | | ty | | | | + +--------+ + + + | BASIC METABOLIC | Routin | 02/24/2020 | | Results for this | | PANEL | e | | | procedure are in the | | | | | | results section. | + +--------+ + + + documented in this encounter Results Basic Metabolic Panel (02/24/2020) + + + + + + | [...] | 4.9 | 3.6 - 5.1 | | | | | | mmol/L | | | + + + + + + | Cl | 105 | 95 - 112 mmol/L | | | + + + + + + | CO2 | 25 | 19 - 31 mmol/L | | | + + + + + + | Anion Gap | 14 | 7 - 21 mmol/L | | | + + + + + + | Glucose | 239 (A) | 70 - 100 mg/dL | | | + + + + + + | BUN | 37 (A) | 6 - 23 mg/dL | | | + + + + + + | Creatinine | 3.92 (A) | 0.70 - 1.18 | | [...] + + + + | BUN/Creatin | 9.4 | 6.0 - 28.6 | | | | ine Ratio | | | | | + + + + + + + + | Specimen | + + | Blood | + + documented in this encounter Visit Diagnoses Not on filedocumented in this encounter"
--- OUTSIDE RECORDS SUMMARY | ~2020-09-11 | XMS | Encounter Summary ---
Demographics + + + | Address | [address] | | | [place] [address] | + + + | Home Phone [...] Team Providers + +------+ + | Care Ict Customer Support Officer Name | Role | Phone | [...] | | [address] | [place] [address] | | | | | [place] [address] | | | | | | [phone] | | | +--------+ + + + [...] | | | | | | [place] [address] | | | | | | [phone] | | | | | | | [...] | | | Visit | | [address] [place], [place] | | | | | | [address] | | | | | | | [...]
--- OUTSIDE RECORDS SUMMARY | ~2020-09-11 | XMS | Encounter Summary ---
Demographics + + + | Address | [address] | | | [place] [address] | + + + | Home Phone [...] Team Providers + +------+ + | Care Latexer Name | Role | Phone | + [...] | | [address] | [place] [address] | | | | | [place] [address] | | | | | | [phone] | | | +--------+ + + + [...] | | | | | | [place] [address] | | | | | | [phone] | | | | | | | [...] | | | Visit | | [address] [place], [place] | | | | | | [address] | | | | | | | [...]
--- OUTSIDE RECORDS SUMMARY | ~2020-09-11 | XMS | Encounter Summary ---
Demographics + + + | Address | [address] | | | [place] [address] | + + + | Home Phone [...] Providers + +------+ + | Care Software Project Engineer Name | Role | Phone | + +------+ + | Rahul Silva MD | PCP | | + +------+ + Encounter Details +--------+ + + + + | Date | Type | Department | Care Team | Description | +--------+ + + + + | 09/18/ | Orders Only | [facility] | Conversion | | | 2018 | | NEPHROLOGY [place] | Transaction, | | | | | [address] | Provider Unknown | | | | | [address] [place] [address] | | | | | | [address] | (Fax) | | | | | [phone] | | | +--------+ + + + [...] | | | | | | [place] [address] | | | | | | [phone] | | | | | | | [...] | | | Visit | | [address] [place], [place] | | | | | | [address] | | | | | | | [...]
--- OUTSIDE RECORDS SUMMARY | ~2020-09-11 | XMS | Encounter Summary ---
Demographics + + + | Address | [address] | | | [place] [address] | + + + | Home Phone [...] Team Providers + +------+ + | Care Motor Tester Name | Role | Phone | [...] [address] | | | | | [place], [place] | [place], [place] | | | | | [address] | [address] | | | | | [phone] | [phone] | | | | | | | [...] | | | | | | [place] [address] | | | | | | [phone] | | | | | | | [...] | | | Visit | | [address] [place], [place] | | | | | | [address] | | | | | | | [...]
--- OUTSIDE RECORDS SUMMARY | ~2020-09-11 | XMS | Encounter Summary ---
Demographics + + + | Address | [address] | | | [place] [address] | + + + | Home Phone [...] Team Providers + +------+ + | Care Mva Reactor Operator Name | Role | Phone | + +------+ + | Rahul Silva MD | PCP | | + +------+ + Encounter Details +--------+ + + + + | Date | Type | Department | Care Team | Description | +--------+ + + + + | 12/19/ | Orders Only | [facility] | Conversion | | | 2016 | | NEPHROLOGY [place] | Transaction, | | | | | [address] | Provider Unknown | | | | | [address] [place] [address] | | | | | | [address] | (Fax) | | | | | [phone] | | | +--------+ + + + [...] | | | | | | [place] [address] | | | | | | [phone] | | | | | | | [...] | | | Visit | | [address] [place], [place] | | | | | | [address] | | | | | | | [...]
--- OUTSIDE RECORDS SUMMARY | ~2020-09-11 | XMS | Encounter Summary ---
Demographics + + + | Address | [address] | | | [place] [address] | + + + | Home Phone [...] + + + | Author | [facility] | + + + | Organization | [facility] | + + + | Address | Unknown | + + + | Phone | Unavailable | + + + Support + + + + + | Name | Relationship | Address | Phone | + + + + + | Darci Andujar | VALERIE | [place] | | | | | [address] | | + + + + + Care Team Providers + +------+ + | Care Grout Worker Name | Role | Phone | [...] [place] | | | | | | [address] | | | | | | [place], [place] | | | | | | [address] | | | | | | [phone] | | | +--------+ + + + [...] as of this encounter Progress Notes Interface, Gas Engine Performance Engineer In - 01/03/2007 5:08 AM PST [facility] and [address] [address] Department of Orthopaedics, School [facility] OP19 December 21, 1997 Jerry Smiley M.D. [address] [place] [address] [address] [place] [address] RE:Kavon Andujar MR#:[id number] Smiley: Thank [...] Carlson might like. Sincerely, Eric Mcclure M.D. Pest Control Operator, Department of Orthopaedics and Rehabilitation ERICK/sara A documented in this encounter Plan of Treatment Not on filedocumented as of this encounter Visit Diagnoses Not on filedocumented in this encounter"
--- OUTSIDE RECORDS SUMMARY | ~2020-09-11 | XMS | Encounter Summary ---
Demographics + + + | Address | [address] | | | [place] [address] | + + + | Home Phone [...] Team Providers + +------+ + | Care Tar Kettle Runner Name | Role | Phone | [...] + + | 01/10/ | Documentati | [facility] | Simon, | Results (01/07/20) | | 2020 | on | NEPHROLOGY [place] | [facility] | | | | | [address] | Microsoft Windows Engineer | | | | | [address] [place], [place] | | | | | | [address] | | | | | | [phone] | | | +--------+ + + + [...] | 09/19/ | Office | Cardiology | [place], [place], | | | 2019 | Visit | | BOX TOE CEMENTER [address] | | | | | | [address], | | | | | | [place] [address] | | | | | | [phone] | | | | | | | [...] [place] | | | | | | [address] | | | | | | | [...]
--- OUTSIDE RECORDS SUMMARY | ~2020-09-11 | XMS | Encounter Summary ---
Demographics + + + | Address | [address] | | | [place] [address] | + + + | Home Phone [...] Providers + +------+ + | Care Insurance Checker Name | Role | Phone | + +------+ + | Rahul Silva MD | PCP | | + +------+ + Encounter Details +--------+ + + + + | Date | Type | Department | Care Team | Description | +--------+ + + + + | 01/23/ | Orders Only | [facility] | Collin Mirza, | | | 2015 | | NEPHROLOGY [place] | AIRWORTHINESS INSPECTOR [address] | | | | | [address] | [address] | | | | | [address] [place], [place] | [place] | | | | | [address] | [address] | | | | | [phone] | [phone] | | | | | | | [...] | | 2019 | Visit | | AIRWORTHINESS INSPECTOR [address] | | | | | | [address], | | | | | | [place] [address] | | | | | | [phone] | | | | | | | [...] [place] | | | | | | [address] | | | | | | | [...] | | | LAB | | | Mexican | | | | | + + [...]
--- OUTSIDE RECORDS SUMMARY | ~2020-09-11 | XMS | Encounter Summary ---
Demographics + + + | Address | [address] | | | [place] [address] | + + + | Home Phone [...] Team Providers + +------+ + | Care Rope Rider Name | Role | Phone | + [...] + + | 09/23/ | Telephone | [facility] | Brian Orosco MD | Advice Only | | 2019 | | VASCULAR SURGERY | [address] | | | | | [address] | [place], [place] | | | | | [place], [place] | [address] | | | | | [address] | [phone] | | | | | [phone] | | | +--------+ + + + [...] transfer the call to a rolf munoz product coordinator was caller made aware that if at [...] | | | | | | [place] [address] | | | | | | [phone] | | | | | | | [...] [place] | | | | | | [address] | | | | | | | | +--------+ + + + + documented as of this encounter Visit Diagnoses Not on filedocumented in this encounter
--- OUTSIDE RECORDS SUMMARY | ~2020-09-11 | XMS | Encounter Summary ---
Demographics + + + | Address | [address] | | | [place] [address] | + + + | Home Phone [...] Team Providers + +------+ + | Care Macerator Operator Name | Role | Phone | + +------+ + | Mehrdad Bergman | PCP | | + +------+ + Encounter Details +--------+ + + + + | Date | Type | Department | Care Team | Description | +--------+ + + + + | 10/01/ | Telephone | [facility] | Farrukh Acuna MD | | | 2019 | | NEPHROLOGY [place] | [address] | | | | | [address] [facility] | [address] [place], [place] | | | | | [place] | [address] | | | | | [address] | | | | | | [phone] | | | +--------+ + + + [...] by Friday. Please call them back at [phone] . Detailed message may be left on phone: Yes Last OV: Next OV: 10/04/19 documented in this enc ounter Plan of Treatment +--------+ + + + + | Date | Type | Specialty | Care Team | Description | +--------+ + + + + | 09/19/ | Office | Cardiology | BlasMarch, | | | 2019 | Visit | | AUDIO VISUAL SPECIALIST [address] | | | | | | [address], | | | | | | [place] [address] | | | | | | [phone] | | | | | | | [...] [place] | | | | | | [id number] | | | | | | | [...]
--- OUTSIDE RECORDS SUMMARY | ~2020-09-11 | XMS | Encounter Summary ---
Demographics + + + | Address | [address] | | | [place] [address] | + + + | Home Phone [...] Providers + +------+ + | Care Public Safety Police Name | Role | Phone | + [...] | | [address] | [place] [address] | | | | | [place] [address] | | | | | | [phone] | | | +--------+ + + + [...] | | | | | | [place] [address] | | | | | | [phone] | | | | | | | [...] | | | Visit | | [address] [place], [place] | | | | | | [address] | | | | | | | [...]
--- OUTSIDE RECORDS SUMMARY | ~2020-09-11 | XMS | Encounter Summary ---
Demographics + + + | Address | [address] | | | [place] [address] | + + + | Home Phone [...] Team Providers + +------+ + | Care Lug Loader Name | Role | Phone | [...] | | | | | kidney | [place] | | | | | | disease) | [place] | | | | | | stage 5, GFR | [address] | | | | | | less than | Phone: | | | | | | 15 ml/min | [phone] | | | | | | (HCC) | Fax: | | | | | | Procedures | [phone] | | | | | | VAS [...] | | | | | kidney | [place] | | | | | | disease) | [place] | | | | | | stage 5, GFR | [address] | | | | | | less than | Phone: | | | | | | 15 ml/min | [phone] | | | | | | ([facility]) | Fax: | | | | | | Procedures | [phone] | | | | | | VAS [...] + + | 10/20/ | Hospital | [facility] | Trisha Conner DNP | CKD (chronic kidney | | 2019 | Encounter | VASCULAR SURGERY | [address] | disease) stage 5, | | | | ULTRASOUND [address] | [place], [place] | GFR less than 15 | | | | [address] | [address] | ml/min ([facility]) | | | | [place] | | | | | | [address] | | | | | | [phone] | | | +--------+ + + + [...] | | | | | | | ([facility]), Secondary | | | | | | | hyperparathyroidism | | | | | | | ([facility]) | | | | | | [...] + + + +---------+ + + | amLODIPine | Take 1 tablet by | 90 | 3 | 10/04/20 | | | (NORVASC) 5 mg | mouth Daily. | tablet | | 19 | 0 | | [...] + + | darbepoetin amarjit | Inject 0.3 mLs under | 0.3 mL | 11 | 10/05/20 | | | (ARANESP, ALBUMIN | the skin Every 30 | | | 19 | 0 | | FREE,) 60 mcg/0.3 mL | days. | | | | | | | [...] | | 2019 | Visit | | CLINICAL RESOURCE NURSE [address] | | | | | | [address], | | | | | | [place] [address] | | | | | | [phone] | | | | | | | [...] | | | Visit | | [address] [place] | | | | | | [address] | | | | | | | [...] + documented in this encounter Results VAS Hemodialysis Graft Fistula [...] | | | | Signed by: Idris iWlson Shawn | | Sign Date/Time: 10/21/2019 8:17 [...]
--- OUTSIDE RECORDS SUMMARY | ~2020-09-11 | XMS | Encounter Summary ---
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); Anemia of | | | | | | chronic kidney | | | | | | failure, stage 5 | | | | | | ([facility]); CKD (chronic | | | | | | kidney disease) | | | | | | stage 5, GFR less | | | | | | than 15 ml/min | | | | | | ([facility]); Persistent | | | | | [...] | | | | | | [place] [address] | | | | | | [phone] | | | | | | | [...] [place] | | | | | | [address] | | | | | | | [...] | | | | use of insulin ([facility]) | | | | | | Anemia of chronic | | | | | | kidney failure, | | | | | | stage 5 ([facility]) CKD | | | | | | (chronic kidney | | | | | | disease) stage 5, | | | | | | GFR less than 15 | | | | | | ml/min ([facility]) | | | | | | [...] | | | | use of insulin ([facility]) | | | | | | Anemia of chronic | | | | | | kidney failure, | | | | | | stage 5 ([facility]) CKD | | | | | | (chronic kidney | | | | | | disease) stage 5, | | | | | | GFR less than 15 | | | | | | ml/min ([facility]) | | | | | | [...] | | | | use of insulin ([facility]) | | | | | | Anemia of chronic | | | | | | kidney failure, | | | | | | stage 5 ([facility]) CKD | | | | | | (chronic kidney | | | | | | disease) stage 5, | | | | | | GFR less than 15 | | | | | | ml/min ([facility]) | | | | | | [...] | | | | use of insulin ([facility]) | | | | | | Anemia of chronic | | | | | | kidney failure, | | | | | | stage 5 ([facility]) CKD | | | | | | (chronic kidney | | | | | | disease) stage 5, | | | | | | GFR less than 15 | | | | | | ml/min ([facility]) | | | | | | [...] | | | | use of insulin ([facility]) | | | | | | Anemia of chronic | | | | | | kidney failure, | | | | | | stage 5 ([facility]) CKD | | | | | | (chronic kidney | | | | | | disease) stage 5, | | | | | | GFR less than 15 | | | | | | ml/min ([facility]) | | | | | | [...] | | | | use of insulin ([facility]) | | | | | | Anemia of chronic | | | | | | kidney failure, | | | | | | stage 5 ([facility]) CKD | | | | | | (chronic kidney | | | | | | disease) stage 5, | | | | | | GFR less than 15 | | | | | | ml/min ([facility]) | | | | | | [...] | | | | use of insulin ([facility]) | | | | | | Anemia of chronic | | | | | | kidney failure, | | | | | | stage 5 ([facility]) CKD | | | | | | (chronic kidney | | | | | | disease) stage 5, | | | | | | GFR less than 15 | | | | | | ml/min ([facility]) | | | | | | [...] | | | | use of insulin ([facility]) | | | | | | Anemia of chronic | | | | | | kidney failure, | | | | | | stage 5 ([facility]) CKD | | | | | | (chronic kidney | | | | | | disease) stage 5, | | | | | | GFR less than 15 | | | | | | ml/min ([facility]) | | | | | | [...] | | | | use of insulin ([facility]) | | | | | | Anemia of chronic | | | | | | kidney failure, | | | | | | stage 5 ([facility]) CKD | | | | | | (chronic kidney | | | | | | disease) stage 5, | | | | | | GFR less than 15 | | | | | | ml/min ([facility]) | | | | | | [...] | insulin (HCC) | + + | Anemia of chronic kidney failure, stage 5 (HCC) | + + | CKD (chronic kidney disease) stage 5, GFR less than 15 ml/min (HCC) Chronic kidney | | disease, Stage V | + + | Persistent proteinuria Proteinuria | + + documented in this encounter"
--- OUTSIDE RECORDS SUMMARY | ~2020-09-11 | XMS | Encounter Summary ---
Demographics + + + | Address | [address] | | | [place] [address] | + + + | Home Phone [...] Team Providers + +------+ + | Care Fur Nailer Name | Role | Phone | + +------+ + | Mehrdad Bergman | PCP | | + +------+ + Encounter Details +--------+ + + + + | Date | Type | Department | Care Team | Description | +--------+ + + + + | 03/27/ | Virtual | [facility] | Farrukh Acuna MD | CKD (chronic kidney | | 2019 | Office | NEPHROLOGY [place] | [address] | disease) stage 5, | | | Visit | [address] | [address] [place], [place] | GFR less than 15 | | | | [address] | [address] | ml/min (HCC) | | | | [place], [place] | | (Primary Dx); Anemia | | | | [address] | | of chronic kidney | | | | [phone] | | failure, stage 5 | | [...] insulin | | | | | | ([facility]); Secondary | | | | | | hyperparathyroidism | | | | | | ([facility]); Essential | | | | [...] before he comes back in 2 m [facility]. documented in this encounter Progress Notes Farrukh [...] 10/2016 with severe pneumonia, severe ZEKE; needed SALES SERVICE MANAGER for ~5 weeks b efore renal function recovery mid 12/2016. He was admitted to [facility] for 3 nights in July 2016 [...] 10/2016 with severe pneumonia, severe ZEKE; needed SALES SERVICE MANAGER for ~5 weeks b efore renal [...] Also: I see no need for acute SALES SERVICE MANAGER. I see no need to send [...] or concerns. Truly yours, Farrukh Acuna MD [facility], [facility] This exam was initially conducted via a secure 256-bit AES encrypted bidirectional video se ssion. You have chosen to receive care through the use of telemedicine. Telemedicine enables [facility] care providers at different locations to [...] | | 2019 | Visit | | SOLVENT STATION ATTENDANT [address] | | | | | | [address] [place], | | | | | | [place] [address] | | | | | | [phone] | | | | | | | [...] [place] | | | | | | [address] | | | | | | | [...]
--- OUTSIDE RECORDS SUMMARY | ~2020-09-11 | XMS | Encounter Summary ---
Demographics + + + | Address | [address] | | | [place] [address] | + + + | Home Phone [...] Team Providers + +------+ + | Care Hot Worker Name | Role | Phone | + +------+ + | Rahul Silva MD | PCP | | + +------+ + Encounter Details +--------+ + + + + | Date | Type | Department | Care Team | Description | +--------+ + + + + | 06/23/ | Orders Only | [facility] | Farrukh Acuna MD | | | 2018 | | NEPHROLOGY [place] | [address] | | | | | [address] | [address] [place], [place] | | | | | [address] [place], [place] | [address] | | | | | [address] | | | | | | [phone] | | | +--------+ + + + [...] | | | | | | [place] [address] | | | | | | [phone] | | | | | | | [...] | | | Visit | | [address] [place], [place] | | | | | | [address] | | | | | | | [...]
--- OUTSIDE RECORDS SUMMARY | ~2020-09-11 | XMS | Encounter Summary ---
Demographics + + + | Address | [address] | | | [place] [address] | + + + | Home Phone [...] Author + + + | Author | [facility] | + + + | Organization | [facility] | + + + | Address | Unknown | + + + | Phone | Unavailable | + + + Support + + + + + | Name | Relationship | Address | Phone | + + + + + | Darci Andujar | VALERIE | [place] | | | | | [address] | | + + + + + Care Team Providers + +------+ + | Care Outpatient Psychiatrist Name | Role | Phone | [...] [id number] | | | | | | [place], [place] | | | | | | [address] | | | | | | [phone] | | | +--------+ + + + [...] | + + + + + | [facility] DEPARTMENT | [address] | [place] [address] | | | PATHOLOGY | [address] | | | + + + + + SURGICAL PATHOLOGY (12/28/1996) + + + + + + | Component | Value | Ref Range | Performed | Pathologist | | | | | At | Signature | + + + + + + | SURGICAL | SOURCE OF SPECIMEN: SEE | | [facility] | | | PATHOLOGY | RESULTS | [...] + + + + + | [facility] | [address] | [place] [address] | | | PATHOLOGY | [address] | | | + + + + + documented in this encounter Visit Diagnoses Not on filedocumented in this encounter"
--- OUTSIDE RECORDS SUMMARY | ~2020-09-11 | XMS | Encounter Summary ---
Demographics + + + | Address | [address] | | | [place] [address] | + + + | Home Phone [...] Team Providers + +------+ + | Care Music Educator Name | Role | Phone | + +------+ + | Rahul Silva MD | PCP | | + +------+ + Encounter Details +--------+ + + + + | Date | Type | Department | Care Team | Description | +--------+ + + + + | 10/08/ | Orders Only | [facility] | Farrukh Acuna MD | | | 2018 | | NEPHROLOGY [place] | [address] | | | | | [address] | [address] [place], [place] | | | | | [address] [place], [place] | [address] | | | | | [address] | | | | | | [phone] | | | +--------+ + + + [...] | | | | | | [place] [address] | | | | | | [phone] | | | | | | | [...] | | Visit | | [address] [place], [place] | | | | | | [address] | | | | | | | [...] | | | LAB | | | Bahamian | | | | | + + [...]
--- OUTSIDE RECORDS SUMMARY | ~2020-09-11 | XMS | Encounter Summary ---
Demographics + + + | Address | [address] | | | [place] [address] | + + + | Home Phone [...] Providers + +------+ + | Care Information Scientist Name | Role | Phone | + +------+ + | Rahul Silva MD | PCP | | + +------+ + Encounter Details +--------+ + + + + | Date | Type | Department | Care Team | Description | +--------+ + + + + | 05/27/ | Orders Only | [facility] | Farrukh Acuna MD | | | 2017 | | NEPHROLOGY [place] | [address] | | | | | [address] | [address] [place], [place] | | | | | [address] [place] | [address] | | | | | [address] | | | | | | [phone] | | | +--------+ + + + [...] | | | | | | [place] [address] | | | | | | [phone] | | | | | | | | +--------+ + + + + | 09/19/ | Clinical | Cardiology | | | | 2020 | Support | | | | +--------+ + + + + | 10/30/ | Virtual | Nephrology | Farrukh Acuna MD | | | 2020 | Office | | [address] | | | | Visit | | [address] [place], [place] | | | | | | [address] | | | | | | | | +--------+ + + + + documented as of this encounter Procedures + +--------+ + + + | Procedure Name | Priori | Date/Time | Associated Diagnosis | Comments | | | ty | | | | + +--------+ + + + | EXTERNAL LAB: [facility] | Routin | 05/27/2017 | | Results [...]
--- OUTSIDE RECORDS SUMMARY | ~2020-09-11 | XMS | Encounter Summary ---
Demographics + + + | Address | [address] | | | [place] [address] | + + + | Home Phone [...] Team Providers + +------+ + | Care Television And Radio Repairer Name | Role | Phone | + +------+ + | Rahlu Silva MD | PCP | | + +------+ + Encounter Details +--------+ + + + + | Date | Type | Department | Care Team | Description | +--------+ + + + + | 01/13/ | Orders Only | [facility] | Conversion | | | 2016 | | NEPHROLOGY [place] | Transaction, | | | | | [address] | Provider Unknown | | | | | [address] [place] | | | | | | [address] | (Fax) | | | | | [phone] | | | +--------+ + + + [...] | | | | | | [place] [address] | | | | | | [phone] | | | | | | | [...] | | | Visit | | [address] [place], [place] | | | | | | [address] | | | | | | | [...] - 1.030 | EXTERNAL | | | [place], | | | LAB | | | [...]
--- OUTSIDE RECORDS SUMMARY | ~2020-09-11 | XMS | Encounter Summary ---
Demographics + + + | Address | [address] | | | [place] [address] | + + + | Home Phone [...] + + | Author | [facility] | | | and [place] | + + + | Organization | [facility] | | | [...] Team Providers + +------+ + | Care Ecology Professor Name | Role | Phone | [...] [address] | | | | | [place], [place] | [place], [place] | | | | | [address] | [address] | | | | | [phone] | [phone] | | | | | | | [...] | | | | | | [place] [address] | | | | | | [phone] | | | | | | | [...] | | | Visit | | [address] [place], [place] | | | | | | [address] | | | | | | | [...]
--- OUTSIDE RECORDS SUMMARY | ~2020-09-11 | XMS | Encounter Summary ---
Demographics + + + | Address | [address] | | | [place] [address] | + + + | Home Phone [...] Team Providers + +------+ + | Care Hris Analyst Name | Role | Phone | + +------+ + | Mehrdad Bergman | PCP | | + +------+ + Reason for Visit +--------+--------+ + | Reason | Onset | Comments | | | Date | | +--------+--------+ + | Other | 08/24/ | Patient call | | | 2020 | | +--------+--------+ + Encounter Details +--------+ + + + + | Date | Type | Department | Care Team | Description | +--------+ + + + + | 08/24/ | Telephone | [facility] | Farrukh Acuna MD | Other (Patient call) | | 2020 | | NEPHROLOGY [place] | [address] | | | | | [address] | [address] [place], [place] | | | | | [address] [place], [place] | [address] | | | | | [address] | | | | | | [phone] | | | +--------+ + + + [...] Miscellaneous Notes Telephone Encounter - Trinidad Simon Tonguer - 08/24/2020 4:11 PM PDTPatie nts daughter called to inform that patient is being transferred to [facility]. Dr. Acuna aware n o new orders at this time. documented in this encounter Plan of Treatment +--------+ + + + + | Date | Type | Specialty | Care Team | Description | +--------+ + + + + | 09/19/ | Office | Cardiology | Bl[place], | | 2019 | Visit | | SCRIPT WORKER [address] | | | | | | [address], | | | | | | [place] [address] | | | | | | [phone] | | | | | | | [...] [place] | | | | | | [address] | | | | | | | [...]
--- OUTSIDE RECORDS SUMMARY | ~2020-09-11 | XMS | Encounter Summary ---
Demographics + + + | Address | [address] | | | [place] [address] | + + + | Home Phone [...] Team Providers + +------+ + | Care Ring Maker Name | Role | Phone | [...] + + | 11/17/ | Telephone | [facility] | Farrukh Acuna MD | Other (Patient call | | 2018 | | NEPHROLOGY [place] | [address] | ) | | | | [address] | [address] [place], [place] | | | | | [address] [place] | [id number] | | | | | [address] | | | | | | [phone] | | | +--------+ + + + [...] Miscellaneous Notes Telephone Encounter - Trinidad Simon Wiring Technician - 12/17/2019 10:24 [address]Dr. Shannan bloom aware elephone Encounter - Trinidad Simon Wiring Technician - 11/17/2019 2:11 PM PS TPatients daughter is concerned because her dad has been having some confusion. She states t hat the ER told her that he may have had a "small stroke". She states that patient was instr ucted to take Asprin after the hospital stay. She would just like to let Dr. Acuna know. El ectronically signed by Trinidad Simon Wiring Technician at 11/17/2019 2:15 PM PSTdocum ented in this encounter Plan of Treatment +--------+ + + + + | Date | Type | Specialty | Care Team | Description | +--------+ + + + + | 09/19/ | Office | Cardiology | Blas[place], | | 2019 | Visit | | RETAIL LOAN ORIGINATOR ASSISTANT [address] | | | | | | [address], | | | | | | [place] [address] | | | | | | [phone] | | | | | | | [...] [place] | | | | | | [address] | | | | | | | | +--------+ + + + + documented as of this encounter Visit Diagnoses Not on filedocumented in this encounter
--- OUTSIDE RECORDS SUMMARY | ~2020-09-11 | XMS | Encounter Summary ---
Demographics + + + | Address | [address] | | | [place] [address] | + + + | Home Phone [...] Author + + + | Author | [facility] | + + + | Organization | [facility] | + + + | Address | Unknown | + + + | Phone | Unavailable | + + + Support + + + + + | Name | Relationship | Address | Phone | + + + + + | Darci Andujar | VALERIE | [place] | | | | | [address] | | + + + + + Care Team Providers + +------+ + | Care Hide Mill Man Name | Role | Phone | + +------+ + PCP | Unavailable | + +------+ + Encounter Details +--------+ + + + + | Date | Type | Department | Care Team | Description | +--------+ + + + + | 12/28/ | Procedure - | [facility] | Record, Operation | Operative Report | | 1996 | | Center at [facility] 1935 | | | | | Transcribed | [facility] | | | | | | for Health and | | | | | | Healing, [address] | | | | | | [place], [place] | | | | | | [address] | | | | | | [phone] | | | +--------+ + + + [...] 12/28/1996 12:00 AM PSTAssociated Order(s): OPERATION RECORD [place] [address], [place] [address] [facility] OPERATION RECORD Med Rec No.: [id number] Date: 12/28/96 Name: Kavon Andujar ATTENDING SURGEON: Robert Carlson M.D. Professor, Vascular laboratory machinist(S): Nick Noriega M.D. Poker Manager, General Surgery POSTOPERATIVE DIAGNOSIS(ES): Left stump osteophyte. OPERATION(S) PERFORMED: Revision of left lsbwr-ora-snfn amputation and excision of stump osteophyte. SPECIMEN(S) REMOVED: 1. Swab of pseudocapsule for culture. 2. Osteophyte to Pathology. ANESTHESIA: General endotracheal anesthesia. 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 He has developed pain over the stump. A recent CT scan showed an osteophyte growing on the end of the stump. PROCEDURE: The patient was taken to the Operating Room. General endotracheal anesthesia was performed by Anesthesia. The left vrqyv-cwv-pngp amputation stump was sterilely prepped and draped [...] Unit in stable condition. Nick Noriega M.D. Poker Manager, General Surgery Robert Carlson M.D. Professor, Vascular [...] AM [facility] | | [facility] | | [address], [place] [address] | | [facility] | | | | OPERATION RECORD | | | | [facility] Rec No.: [id number] Date: 12/28/96 | | | | Name: Kavon Andujar | | | | | | ATTENDING SURGEON: Robert Carlson M.D. | | Professor, | | Vascular Surgery | | | | RUMPER(S): Nick Noriega M.D. | | Poker Manager, General Surgery | | | | POSTOPERATIVE DIAGNOSIS(ES): Left stump osteophyte. | | | | OPERATION(S) PERFORMED: Revision of left gqtfs-qqh-cbkz amputation | | and excision of stump osteophyte. | | | | SPECIMEN(S) REMOVED: 1. Swab of pseudocapsule for culture. | | 2. Osteophyte to Pathology. | | | | ANESTHESIA: General endotracheal anesthesia. | | | | INDICATIONS: The patient is a 56-year-old white male who | | is status post left jufur-ibu-dtey | | amputation three years ago secondary | | to embolus. He has developed pain over the stump. A recent CT scan showed | | an osteophyte growing on the end of the stump. | | | | PROCEDURE: The patient was taken to the Operating Room. | | General endotracheal anesthesia was | | performed by Anesthesia. The | | left tyaad-kjb-fhkf amputation stump was sterilely prepped and draped [...] | | Nick Noriega M.D. | | Poker Manager, General Surgery | | Robert Carlson M.D. | | Professor, | | Vascular Surgery | | | | DOMINIC/jc | | | | A | | | | cc: | | | + + documented in this encounter Visit Diagnoses Not on filedocumented in this encounter"
--- OUTSIDE RECORDS SUMMARY | ~2020-09-11 | XMS | Encounter Summary ---
Demographics + + + | Address | [address] | | | [place] [address] | + + + | Home Phone [...] Providers + +------+ + | Care Plastic Boat Patcher Name | Role | Phone | + [...] [address] | | | | | [place], [place] | [place], [place] | | | | | [address] | [address] | | | | | [phone] | [phone] | | | | | | | [...] | | | | | | [place] [address] | | | | | | [phone] | | | | | | | [...] | | | Visit | | [address] [place], [place] | | | | | | [address] | | | | | | | [...]
--- OUTSIDE RECORDS SUMMARY | ~2020-09-11 | XMS | Encounter Summary ---
Demographics + + + | Address | [address] | | | [place] [address] | + + + | Home Phone [...] [place] | | | | | [address] | | + + + + + Care Team Providers + +------+ + | Care Rn Ante Partum Name | Role | Phone | + [...] | | | | | | [address] | | | | | | [place], [place] | | | | | | [address] | | | | | | [phone] | | | +--------+ + + + [...] as of this encounter Progress Notes Interface, Dovetailer In - 12/28/2006 5:10 AM PST [facility] and [place] [address] [place], [place] [address] or January 31, 1998 GRIFFIN SMILEY MD [address] [place] [address] [place] [address] RE:PORFIRIO ZAVALA MR#:[id number] Smiley: As [...] to hear in our conversation that the [facility] does not cover Ultram in [...] in the future. Sincerely, Nelson Melara M.D. Staff Consultant, Anesthesiology [facility] MANDY/geovanni documented in this encounter Plan of Treatment Not on filedocumented as of this encounter Visit Diagnoses Not on filedocumented in this encounter"
--- OUTSIDE RECORDS SUMMARY | ~2020-09-11 | XMS | Encounter Summary ---
Demographics + + + | Address | [address] | | | [place] [address] | + + + | Home Phone [...] Team Providers + +------+ + | Care Cotton Picking Machine Operator Name | Role | Phone [...] + + | 03/20/ | Telephone | [facility] | Sandy Capellan | Mary (Clarification | | 2020 | | NEPRHOLOGY [place] | [address] [place] | on lab orders) | | | | [address] | | | | | | [address] [place] | | | | | | [address] | | | | | | [phone] | | | +--------+ + + + [...] banks, called explaining that they went to [facility] today but were unable to do labs becaus e they were missing the urine order. Explained that per last OV note, Dr Acuna only wanted b lood work and no urine testing was needed. She stated understanding and they will go to [facility] tomorrow for non-fasting blood work. Re-faxed pre-appointment orders (RFP, PTH, ferrit in, iron/iron binding, mag, and CBC) to [facility] in [place] (F#[phone]). Fax confirm ation received. No further questions [...] | | | | | | [place] [address] | | | | | | [phone] | | | | | | | [...] | | | Visit | | [address] [place] | | | | | | [address] | | | | | | | | +--------+ + + + + documented as of this encounter Visit Diagnoses Not on filedocumented in this encounter"
--- OUTSIDE RECORDS SUMMARY | ~2020-09-11 | XMS | Encounter Summary ---
Demographics + + + | Address | [address] | | | [place] [address] | + + + | Home Phone [...] Team Providers + +------+ + | Care Breaker Up Name | Role | Phone | + +------+ + | Mehrdad Bergman | PCP | | + +------+ + Encounter Details +--------+ + + + + | Date | Type | Department | Care Team | Description | +--------+ + + + + | 08/09/ | Virtual | [facility] | Farrukh Acuna MD | Persistent | | 2020 | Office | NEPHROLOGY [place] | [address] | proteinuria (Primary | | | Visit | [address] | [address] [place], [place] | Dx); CKD (chronic | | | | [address] | [id number] | kidney disease) | | | | [place] | | stage 5, GFR less | | | | [address] | | than 15 ml/min | | | | [phone] | | ([facility]); Anemia of | | | | | | chronic kidney | | | | | | failure, stage 5 | | | | | | ([facility]); Iron | | | | | | deficiency; | | | | | | Essential | | | | | | hypertension; Type 2 | | | | | [...] | | | ([facility]); Edema of | | | | | | lower extremity; | | | | | | Vitamin D deficiency | +--------+ + + + + Social [...] Instructions Patient Instructions Farrukh Acuna MD - 08/09/2020 2:00 PM PDTDiscussions/Recommendations : I discussed today [...] dialysis when it is needed. Also: I asked him to go for the 65+ Flu shot ALEXI. I will not change any of his [...] active and ambulatory carefully as possible. I strongly advised him to keep off smoking; I explained the benefits of doing that. He voic ed good understanding. He is to F/U with the Sleep Medicine team. He will F/U with your office regularly. I sent him for a repeat BMP, CBC every 4 weeks. He will have RFP, CBC, Fe studies, Ferritin, intact PTH, 25-OH D level, UTPCR done befor e he comes back in 2 months. documented in this encounter Progress Notes Farrukh Acuna MD - 08/09/2020 2:00 PM PDT Patient Active Problem List [...] Mr. Andujar on an urgent basis in Emergency Room F/U today with his daugh ter + he is here to F/U on his severe CKD & its associated complications. On 05/27/19, his s Cr & eGFR were 4.44 & 13 vs 3.03 & 20 on 03/01/19. He was in the ED at [facility] on 08/01/20 with chest pain, non-cardiac in origin per records that I reviewed from the ED. He was in the ED at [facility] in late 05/2020 with CP & dyspnea; [...] with severe pneumonia, severe ZEKE; needed HAND QUILTER for ~5 weeks b efore renal function recovery mid 12/2016. He was admitted to [facility] for 3 nights in July 2016 [...] al pain, diarrhea, melena, or hematochezia. No palpitation, dizziness, loss of consciousnes s, orthopnea, paroxysmal nocturnal dyspnea; he has ROBLES, chronic; his leg edema is also chron ic. The following portions of the patient's history [...] Rfl: darbepoetin amarjit (ARANESP, ALBUMIN FREE,) 100 mcg/0.5 mL injection, Inject 0.5 mLs und er the skin Every 28 days., Disp: 0.5 mL, Rfl: 5 docusate-senna (SENOKOT-S) 50-8.6 mg per tablet, Take [...] tablet by mouth Daily., Disp: , Rfl: omeprazole (PRILOSEC) 20 mg capsule, Take 20 mg by mouth Daily., Disp: , Rfl: ondansetron [...] motor po wer. There is no asterixis. But he has a fine intentional tremor. Psychiatric: The patient s behavior is normal. Judgment and thought content are normal. Access: right AV fistula with a good thrill, as performed by daughter after coaching on how to do it by myself. Lab Results Component Value Date HGB 9.2 (A) 08/01/2020 HGB 9.7 (A) 05/29/2020 HCT 30.2 (A) 05/29/2020 NA 135 08/01/2020 K 4.3 08/01/2020 CL 99 08/01/2020 CO2 28 08/01/2020 CO2 29 08/24/2019 BUN 45 (A) 08/01/2020 CREA 4.25 (A) 08/01/2020 CREA 4.60 (A) 08/09/2019 CREA 4.08 (A) 07/19/2019 CALCIUM 8.8 05/29/2020 CALCIUM 8.8 05/29/2020 CALCIUM 10.5 09/07/2019 ALBUMIN 3.2 (A) 05/29/2020 PHOS 4.2 08/05/2016 EGFR 14.0 (A) 08/01/2020 FERRITIN 299.9 05/29/2020 PTH 94.73 (A) 05/29/2020 LABPROT 4,403.2 (A) 05/29/2020 Assessment: Mr. Andujar is a 80 y.o. male patient with stage V CKD on a background of diabetes & hyperte nsion and ZEKE's (hospitalization for C-diff and dehydration). The most likely pathology here is that of diabetic nephropathy +/- hypertensive nephrosclerosis/arteriolosclerosis. He was hospitalized in 10/2016 with severe pneumonia, severe ZEKE; needed HAND QUILTER for ~5 weeks b efore renal function recovery mid 12/2016. RENAL FUNCTION: Below baseline vs 2015. He had a stage 1 ZEKE (acute kidney injury) in [facility] 07/2017. BLOOD PRESSURE: Reportedly better control, [...] dialysis when it is needed. Also: I sent him for the 65+ Flu shot ALEXI. I see no need for acute HAND QUILTER. I see no need to send him [...] D3 ) to 2,000 units daily. I kept him off of his Oral [...] RFP, CBC, Fe studies, Ferritin, intact PTH, 25-OH D level, UTPCR done befor e he comes back in [address] Bergman for the opportunity to see this high-complexity patient in ED today, as we are trying to prevent a hospitalization for severe/worsening renal failure and/or life -threatening electrolytes or volume imbalance. Please do not hesitate to call me at any time with questions or concerns. Truly yours, Farrukh Acuna MD [facility] This exam was initially conducted via a secure 256-bit AES encrypted bidirectional video se ssion. You have chosen to receive care through the use of telemedicine. Telemedicine enables [facility] care providers at different locations to provide [...] | | 2019 | Visit | | SENIOR TECHNICAL EDITOR [address] | | | | | | [address] [place], | | | | | | [place] [address] | | | | | | [phone] | | | | | | | [...] [place] | | | | | | [address] | | | | | | | | +--------+ + + + + documented as of this encounter Visit Diagnoses + + | Diagnosis | + + | Persistent proteinuria - Primary Proteinuria | + + | CKD (chronic kidney disease) stage 5, GFR less than 15 ml/min ([facility]) Chronic kidney | | disease, Stage V | + + | Anemia of chronic kidney failure, stage 5 ([facility]) | + + | Iron deficiency Other disorders of iron metabolism | + + | Essential hypertension Unspecified essential hypertension | + + | Type 2 diabetes mellitus with diabetic nephropathy, with long-term current use of | | insulin (HCC) | + + | Secondary hyperparathyroidism (HCC) Secondary hyperparathyroidism (of renal origin) | + + | Edema of lower extremity Edema | + + | Vitamin D deficiency Unspecified vitamin D deficiency | + + documented in this encounter
--- OUTSIDE RECORDS SUMMARY | ~2020-09-11 | XMS | Encounter Summary ---
Demographics + + + | Address | [address] | | | [place] [address] | + + + | Home Phone [...] Team Providers + +------+ + | Care Wedding Florist Name | Role | Phone | + [...] + + | 03/14/ | Refill | [facility] | Farrukh Acuna MD | Medication Refill | | 2019 | | NEPHROLOGY [place] | [address] | | | | | [address] | [address] [place], [place] | | | | | [address] | [address] | | | | | [place] | | | | | | [address] | | | | | | [phone] | | | +--------+--------+ + + + [...] AM PDTReceived fax from Rosalee maynor in [place] requesting prescription for Torsemide. Torsemide prescription sent on 03/[address] [facility] to confirm they received electronic prescription. They received prescriptio n but were unable to fill it as it is too soon to fill. Their records show it was filled on 03/14. Appears that prescription was sent to both [facility] and [facility]. Called patient's daughter, Charlotte, and she reports they did picked edge sewing machine operator prescription for Torsem luly at [facility]. His primary pharmacy is [facility] and he was only getting the Torse mide at [facility] because [facility] was out of Torsemide. She asked that [facility] pharmacy be re moved from [...] [place], | | | | | | [place] [address] | | | | | | [phone] | | | | | | | [...] | | | Visit | | [address] [place], [place] | | | | | | [id number] | | | | | | | [...]
--- OUTSIDE RECORDS SUMMARY | ~2020-09-11 | XMS | Encounter Summary ---
Demographics + + + | Address | [address] | | | [place] [address] | + + + | Home Phone [...] Providers + +------+ + | Care Business Supervisor Name | Role | Phone | [...] + + | 07/21/ | Documentati | [facility] | Simon, | Results (07/19/19) | | 2019 | on | NEPHROLOGY [place] | [facility] | | | | | [address] | Machine Operations Supervisor | | | | | [address] [facility] [place] | | | | | | [address] | | | | | | [phone] | | | +--------+ + + + [...] | | | | | | [place] [address] | | | | | | [phone] | | | | | | | [...] [place] | | | | | | [address] | | | | | | | [...]
--- OUTSIDE RECORDS SUMMARY | ~2020-09-11 | XMS | Encounter Summary ---
Demographics + + + | Address | [address] | | | [place] [address] | + + + | Home Phone [...] Team Providers + +------+ + | Care Entertainment Centre Manager Name | Role | Phone [...] + + | 09/03/ | Telephone | [facility] | Simon, | Lab Results | | 2019 | | NEPHROLOGY [place] | [facility] | | | | | [address] | Inside Sales Advertising Executive | | | | | [address] [place] | | | | | | [address] | | | | | | [phone] | | | +--------+ + + + [...] Miscellaneous Notes Telephone Encounter - Trinidad Simon, Wire Machine Cutter - 09/03/2019 12:57 PM PDTSpoke to patient in regards to lab results. She verbalized understanding, I did not have the [facility] copy of the labs but I [...] this time.Electr onically signed by Trinidad Simon Wire Machine Cutter at 09/03/2019 4:26 PM PDTTelephone Encounter - [...] be nice. Please call them back at [phone]. Detailed message may be left on phone: Yes Next OV: 10/04/19 If this is a symptom based call and you were unable to immediately [facility] the [facility], was caller made aware that if at any timehefeels it is an emergency they should call 911 or go to the nearest emergency room? Yes Is freelance interpreter/translator needed: no do cumented in this encounter Plan of Treatment +--------+ + + + + | Date | Type | Specialty | Care Team | Description | +--------+ + + + + | 09/19/ | Office | Cardiology | Blas[place], | | | 2019 | Visit | | GRINDER GEAR [address] | | | | | | [address] [place], | | | | | | [place] [address] | | | | | | [phone] | | | | | | | [...] [place] | | | | | | [address] | | | | | | | | +--------+ + + + + documented as of this encounter Visit Diagnoses Not on filedocumented in this encounter"
--- OUTSIDE RECORDS SUMMARY | ~2020-09-11 | XMS | Encounter Summary ---
Demographics + + + | Address | [address] | | | [place] [address] | + + + | Home Phone [...] | + + +---------+ + | Charlotte Andujra | ECON | Unknown | | + + +---------+ + Care Team Providers + +------+ + | Care Senior Risk Analyst Name | Role | Phone [...] + + | 11/12/ | Documentati | [facility] | Simon, | Results (11/10/19) | | 2019 | on | NEPHROLOGY [place] | [facility] | | | | | [address] | Gun Stocker | | | | | [address] [place], [place] | | | | | | [address] | | | | | | [phone] | | | +--------+ + + + [...] | | 2019 | Visit | | LAB ASSOCIATE [address] | | | | | | [address] [place], | | | | | | [place] [address] | | | | | | [phone] | | | | | | | [...] [place] | | | | | | [address] | | | | | | | [...]
--- OUTSIDE RECORDS SUMMARY | ~2020-09-11 | XMS | Encounter Summary ---
Demographics + + + | Address | [address] | | | [place] [address] | + + + | Home Phone [...] Team Providers + +------+ + | Care Diesel Powerplant Mechanic Helper Name | Role | Phone | + +------+ + | Rahul Silva MD | PCP | | + +------+ + Encounter Details +--------+ + + + + | Date | Type | Department | Care Team | Description | +--------+ + + + + | 11/10/ | Orders Only | [facility] | Farrukh Acuna MD | | | 2017 | | NEPHROLOGY [place] | [address] | | | | | [address] | [address] [place], [place] | | | | | [address] [place] | [address] | | | | | [address] | | | | | | [phone] | | | +--------+ + + + [...] | | | | | | [place] [address] | | | | | | [phone] | | | | | | | [...] | | | Visit | | [address] [place], [place] | | | | | | [address] | | | | | | | | +--------+ + + + + documented as of this encounter Procedures + +--------+ + + + | Procedure Name | Priori | Date/Time | Associated Diagnosis | Comments | | | ty | | | | + +--------+ + + + | EXTERNAL LAB: [facility] | Routin | 11/10/2017 | | Results [...] | | | LAB | | | [place] | | | | | + + [...]
--- OUTSIDE RECORDS SUMMARY | ~2020-09-11 | XMS | Encounter Summary ---
Demographics + + + | Address | [address] | | | [place] [address] | + + + | Home Phone [...] Providers + +------+ + | Care Cloth Painter Name | Role | Phone | [...] + + | 03/29/ | Documentati | [facility] | Alfred, | Other (IV fercesilia | | 2020 | on | NEPHROLOGY [place] | Charlie Abdi | order sent to [facility] | | | | [address] | Risk Investigator | IVT confirmation | | | | [address] | | received) | | | | [place], [place] | | | | | | [address] | | | | | | [phone] | | | +--------+ + + + [...] | | 2019 | Visit | | FORMULA TECHNICIAN [address] | | | | | | [address] [place], | | | | | | [place] [address] | | | | | | [phone] | | | | | | | [...] [place] | | | | | | [address] | | | | | | | | +--------+ + + + + documented as of this encounter Visit Diagnoses Not on filedocumented in this encounter"
--- OUTSIDE RECORDS SUMMARY | ~2020-09-11 | XMS | Encounter Summary ---
Demographics + + + | Address | [address] | | | [place] [address] | + + + | Home Phone [...] Providers + +------+ + | Care Parts Identifier Name | Role | Phone | + [...] [address] | | | | | [place], [place] | [place], [place] | | | | | [address] | [address] | | | | | [phone] | | | | | | | [...] | | | | | | [place] [address] | | | | | | [phone] | | | | | | | [...] | | | Visit | | [address] [place], [place] | | | | | | [address] | | | | | | | [...]
--- OUTSIDE RECORDS SUMMARY | ~2020-09-11 | XMS | Encounter Summary ---
Demographics + + + | Address | [address] | | | [place] [address] | + + + | Home Phone [...] Providers + +------+ + | Care Roll Edge Machine Operator Name | Role | Phone [...] + + | 12/21/ | Documentati | [facility] | Alfred, | Other (Ramone live | | 2020 | on | NEPHROLOGY [place] | Charlie Abdi | order sent | | | | [address] [facility] [address] | Final Assembly And Packing Supervisor | confirmation | | | | [address] [place], [place] | | received.) | | | | [address] | | | | | | [phone] | | | +--------+ + + + [...] | | 2019 | Visit | | DIRECTOR OF SUSTAINABILITY PROGRAMS [address] | | | | | | [address] [place] | | | | | | [place] [address] | | | | | | [phone] | | | | | | | [...] [place] | | | | | | [address] | | | | | | | | +--------+ + + + + documented as of this encounter Visit Diagnoses Not on filedocumented in this encounter"
--- OUTSIDE RECORDS SUMMARY | ~2020-09-11 | XMS | Encounter Summary ---
Demographics + + + | Address | [address] | | | [place] [address] | + + + | Home Phone [...] [place] | | | | | [address] | | + + + + + Care Team Providers + +------+ + | Care Analog Ic Design Engineer Name | Role | Phone [...] | | | | | | [facility], [address] | | | | | | [place], [place] | | | | | | [address] | | | | | | [phone] | | | +--------+ + + + [...] as of this encounter Progress Notes Interface, Baggage Screener In - 01/06/2007 5:03 AM PST CLINIC DATE: 10/31/97 [facility] - PROCEDURE NOTE PROCEDURE: [...] his left thigh stump. Nelson Melara M.D. Wound/Ostomy Nurse, [facility] MANDY/maryjo documented in this encounter Plan of Treatment Not on filedocumented as of this encounter Visit Diagnoses Not on filedocumented in this encounter"
--- OUTSIDE RECORDS SUMMARY | ~2020-09-11 | XMS | Encounter Summary ---
Demographics + + + | Address | [address] | | | [place] [address] | + + + | Home Phone [...] [place] | | | | | [address] | | + + + + + Care Team Providers + +------+ + | Care Computer Security Coordinator Name | Role | Phone | [...] [address] | | | | | | [place], [place] | | | | | | [address] | | | | | | [phone] | | | +--------+ + + + [...] this encounter Miscellaneous Notes Scan - Interface, Marble Finisher In - 05/05/2009 11:41 AM PDT Patient Name: ULCAS CHACON Date: 1940 Sex: M Desired Ratio-Low: [...] * Comments- [facility] 15[facility]9 [facility]ON[facility] DAUGHTER REPORTS PATIENT WAS SEEN AT [facility] AFTER HE FELL AND INJURED LEG AMPUTATION [...] Changes Dose THRP 05/07/93 02.29 I 2.29 [id number] 0000 0000 60.00 N 05/01/93 02.65 I 2.65 [id number] 0000 0000 60.00 N 04/26/93 02.04 I 2.04 [id number] 0000 0000 62.50 N 04/23/93 01.64 I 1.64 [id number] 0000 0000 62.50 L 04/19/93 01.57 I 1.57 [id number] 0000 0000 65.00 L Dosage Weekly Date [...]
--- OUTSIDE RECORDS SUMMARY | ~2020-09-11 | XMS | Encounter Summary ---
Demographics + + + | Address | [address] | | | [place] [address] | + + + | Home Phone [...] [place] | | | | | [address] | | + + + + + Care Team Providers + +------+ + | Care Grocery Team Member Name | Role | Phone | [...] | | | amputation | [place], | [place], [place] | | | | | stump, | [place] [address] | [address] | | | | | unspecified | Phone: | Phone: | | | | | | [phone] | [phone] | | | | | | Fax: | Fax: | | | | | | [phone] | [phone] | +--------+--------+ + + + + Encounter Details +--------+---------+ + + + | Date | Type | Department | Care Team | Description | +--------+---------+ + + + | 04/10/ | Office | [facility] | Seven Reilly MD | Low back pain; | | 2009 | Visit | Pain Center at | [address] | Herniated lumbar | | | | [facility] | [place], [place] | intervertebral disc; | | | | [address] | [address] | Stump pain (HCC) | | | | [facility] | [phone] | | | | | and Healing, | | | | | | Building | | | | | | Floor [place], [place] | | | | | | [address] | | | | | | [phone] | | | +--------+---------+ + + + [...] edited the trainee's note. Seven Reilly MD, [facility] [place], Mariano Rubio MD - 04/10/2010 12:30 PM PDT [facility] Office Visit 04/10/2010 Kavon Andujar; ; : 1940 Mr. Andujar was referred for pain management consultation by HARDIK COYNE MD [address] [place] [address] Reason for visit: Chief Complaint Patient presents [...] pain. He has been referred to the [facility] for consultation regarding this [...] that the most effective treatments include: medications. NEUROCRITICAL CARE PHYSICIAN Brief Pain Inventory: (ten= worst possible pain [...] and summary of old medical records (source: [employer]), as summarized in the body of the [...] generic medication. Follow up: none scheduled at [facility]. Mariano Martinez MD Pain Fellow [facility] documented in this encounter [...]
--- OUTSIDE RECORDS SUMMARY | ~2020-09-11 | XMS | Encounter Summary ---
Demographics + + + | Address | [address] | | | [place] [address] | + + + | Home Phone [...] Team Providers + +------+ + | Care Canteen Attendant Name | Role | Phone | [...] | | | [address] | [place] [address] | | | | | [place] [address] | | | | | | [phone] | | | +--------+ + + + [...] | | 2019 | Visit | | MULTIMEDIA COORDINATOR [address] | | | | | | [address] [place], | | | | | | [place] [address] | | | | | | [phone] | | | | | | | [...]
--- OUTSIDE RECORDS SUMMARY | ~2020-09-11 | XMS | Clinical Summary ---
Demographics + + + | Address | [address] | | | [place] [address] | + + + | Home Phone | | + + + | Preferred Language | Unknown | + + + | Marital Status | Single | + + + | Restorationist Affiliation | PRO | + + + | Race | White | + + + | Ethnic Group | Not or | + + + Author + + + | Author | [facility] | + + + | Organization | [facility] | + + + | Address | Unknown | + + + | Phone | Unavailable | + + + Support + + + + + | Name | Relationship | Address | Phone | + + + + + | Darci Andujar | [place]ER[address] | [place] | | | | | [address] | | + + + + + Care Team Providers + +------+ + | Care Wilton Weaver Name | Role | Phone | + +------+ + | Rahul Silva MD | PCP | | + +------+ + Source Comments [place] is fully live on both [facility] and [facility] Allergies No Known Allergies Medications + + [...]
--- OUTSIDE RECORDS SUMMARY | ~2020-09-11 | XMS | Encounter Summary ---
Demographics + + + | Address | [address] | | | [place] [address] | + + + | Home Phone [...] Providers + +------+ + | Care Industrial Registered Nurse Name | Role | Phone [...] [address] | | | | | [place], [place] | [place], [place] | | | | | [address] | [address] | | | | | [phone] | | | | | | | [...] | | | | | | [place] [address] | | | | | | [phone] | | | | | | | [...] | | | Visit | | [address] [place], [place] | | | | | | [address] | | | | | | | [...]
--- OUTSIDE RECORDS SUMMARY | ~2020-09-11 | XMS | Encounter Summary ---
Demographics + + + | Address | [address] | | | [place] [address] | + + + | Home Phone [...] Team Providers + +------+ + | Care Riding Double Name | Role | Phone | + +------+ + | Rahul Silva MD | PCP | | + +------+ + Encounter Details +--------+ + + + + | Date | Type | Department | Care Team | Description | +--------+ + + + + | 09/17/ | Orders Only | [facility] | Collin Mirza, | | | 2016 | | NEPHROLOGY [place] | HAND PAINTER [address] | | | | [address] | [address] | | | | | [address] [place], [place] | [place] | | | | | [address] | [address] | | | | | [phone] | [phone] | | | | | | | [...] | | | | | | [place] [address] | | | | | | [phone] | | | | | | | [...] | | | Visit | | [address] [place], [place] | | | | | | [address] | | | | | | | [...]
--- OUTSIDE RECORDS SUMMARY | ~2020-09-11 | XMS | Encounter Summary ---
Demographics + + + | Address | [address] | | | [place] [address] | + + + | Home Phone [...] Team Providers + +------+ + | Care Editing Computer Publisher Name | Role | Phone | [...] + + | 08/18/ | Refill | [facility] | Sandy Capellan | Medication Refill | | 2019 | | NEPRHOLOGY PAIGE Valadez RN | | | | | [address] | | | | | | [address] [place] | | | | | | [address] | | | | | | [phone] | | | +--------+--------+ + + + [...] They manually faxed re quest to the [place] office now and fax has been received. Spoke with the pharmacy specialist and provided updated location/fax numbers for our [facility], and [place] office. They had a file for Dr Acuna with 4 locations in [place], 2 locations in [place], [place], [place], [place], and [place]. They report they had faxed request to [...] | | | | | | [place] [address] | | | | | | [phone] | | | | | | | | +--------+ + + + + | 09/19/ | Clinical | Cardiology | | | 2019 | Support | | | | +--------+ + + + + | 10/30/ | Virtual | Nephrology | Farrukh Acuna MD | | | 2019 | Office | | [address] | | | | Visit | | [address] [place], [place] | | | | | | [address] | | | | | | | [...]
--- OUTSIDE RECORDS SUMMARY | ~2020-09-11 | XMS | Encounter Summary ---
Demographics + + + | Address | [address] | | | [place] [address] | + + + | Home Phone [...] [place] | | | | | [address] | | + + + + + Care Team Providers + +------+ + | Care Clam Picker Name | Role | Phone | [...] as of this encounter Progress Notes Interface, Maintenance Porter In - 11/10/2006 2:27 AM PSTCLINIC DATE: [...] he embarked on this. Galo Arora M.D. Technician [employer], Plastic and Reconstructive Surgery / [id number] / [id number] / [id number] cc: Nelson Melara M.D. Anesthesiology. [facility]. [id number] signed by Interface, Maintenance Porter In at 11/10/2006 2:27 AM PSTdocume nted in this encounter Plan of Treatment Not on filedocumented as of this encounter Visit Diagnoses Not on filedocumented in this encounter"
--- OUTSIDE RECORDS SUMMARY | ~2020-09-11 | XMS | Encounter Summary ---
Demographics + + + | Address | [address] | | | [place] [address] | + + + | Home Phone [...] [place] | | | | | [address] | | + + + + + Care Team Providers + +------+ + | Care Copy Preparer Name | Role | Phone | + [...] | | | | | | [address] | | | | | | [place], [place] | | | | | | [address] | | | | | | [phone] | | | +--------+ + + + [...] as of this encounter Progress Notes Interface, Bundle Breaker In - 02/17/2007 3:02 AM PDT [facility] and [place] [address], [place] [address] or August 05, 1996 RUBIA VALLES MD [address] [place] [facility] [place] [address] RE:PORFIRIO ZAVALA MR#:[id number] Valles: Mr. Porfirio Zavala returned to the [facility] today for a followup visit. 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 Mr. Zavala has failed numerous femoral nerve blocks, sciatic nerve blocks, and spinal cord blocks, and was at one time enrolled in the [facility] Pain [facility]. Mr. Zavala's pain is [...] dictating for: Alina Moise M.D. Professor and Monomer Purification Operator, Division of Neurosurgery MARYANA/sajan cc: Seven Khan, Ph.D. Clinical Psychologist-Neuropsychologist documented in this encounter Plan of Treatment Not on filedocumented as of this encounter Visit Diagnoses Not on filedocumented in this encounter"
--- OUTSIDE RECORDS SUMMARY | ~2020-09-11 | XMS | Encounter Summary ---
Demographics + + + | Address | [address] | | | [place] [address] | + + + | Home Phone [...] + +------+ + | Care Head Of Integrated Media Name | Role | Phone | + [...] + + | 09/01/ | Telephone | [facility] | Brian Orosco MD | Advice Only | | 2019 | | VASCULAR SURGERY | [address] | (surgery) | | | | [address] [place] | [place], [place] | | | | | [place], [place] | [address] | | | | | [address] | [phone] | | | | | [phone] | | | +--------+ + + + [...] transfer the call to a p erikavidixie creel operator was caller made aware that if [...] | | 2019 | Visit | | [facility] [address] | | | | | | [address] [place], | | | | | | [place] [address] | | | | | | [phone] | | | | | | | [...]
--- OUTSIDE RECORDS SUMMARY | ~2020-09-11 | XMS | Encounter Summary ---
Demographics + + + | Address | [address] | | | [place] [address] | + + + | Home Phone [...] Team Providers + +------+ + | Care Wood Boat Builder Supervisor Name | Role | Phone | [...] [address] | | | | | [place], [place] | [place], [place] | | | | | [address] | [address] | | | | | [phone] | [phone] | | | | | | | [...] | | | | | | [place] [address] | | | | | | [phone] | | | | | | | [...] | | | Visit | | [address] [place], [place] | | | | | | [address] | | | | | | | [...]
--- OUTSIDE RECORDS SUMMARY | ~2020-09-11 | XMS | Encounter Summary ---
Demographics + + + | Address | [address] | | | [place] [address] | + + + | Home Phone [...] [place] | | | | | [address] | | + + + + + Care Team Providers + +------+ + | Care Generation Engineer Name | Role | Phone | + +------+ + PCP | Unavailable | + +------+ + Encounter Details +--------+ + + + + | Date | Type | Department | Care Team | Description | +--------+ + + + + | 02/26/ | Results | | Other, Faculty | | | 1993 | Only | | [phone] | | +--------+ + + + + [...] | + +---------+ + + | [facility] DEPARTMENT OF | | | | | RADIOLOGY | | | | + +---------+ + + documented in this encounter Visit Diagnoses Not on filedocumented in this encounter"
--- OUTSIDE RECORDS SUMMARY | ~2020-09-11 | XMS | Encounter Summary ---
Demographics + + + | Address | [address] | | | [place] [address] | + + + | Home Phone [...] Team Providers + +------+ + | Care Configuration Release Manager Name | Role | Phone | [...] [address] | | | | | [place], [place] | [place], [place] | | | | | [address] | [address] | | | | | [phone] | [phone] | | | | | | | [...] | | | | | | [place] [address] | | | | | | [phone] | | | | | | | [...] | | | Visit | | [address] [place], [place] | | | | | | [address] | | | | | | | [...]
--- OUTSIDE RECORDS SUMMARY | ~2020-09-11 | XMS | Encounter Summary ---
Demographics + + + | Address | [address] | | | [place] [address] | + + + | Home Phone [...] Team Providers + +------+ + | Care Glost Placer Name | Role | Phone | + +------+ + | Rahul Silva MD | PCP | | + +------+ + Encounter Details +--------+ + + + + | Date | Type | Department | Care Team | Description | +--------+ + + + + | 07/18/ | Orders Only | [facility] | Conversion | | | 2015 | | NEPHROLOGY ERIS | Transaction, | | | | | [address] [facility] | Provider Unknown | | | | | [place] | [phone] | | | | | [address] | | | | | | [phone] | | | +--------+ + + + [...] | | | | | | [place] [address] | | | | | | [phone] | | | | | | | [...] [place] | | | | | | [address] | | | | | | | [...] - 1.030 | EXTERNAL | | | [place], | | | LAB | | | [...] | | | LAB | | | Stateless | | | | | + + [...]
--- OUTSIDE RECORDS SUMMARY | ~2020-09-11 | XMS | Clinical Summary ---
Demographics + + + | Address | [address] | | | [place] [address] | + + + | Home Phone [...] Organization | [facility] | | | [...] Providers + +------+ + | Care Business Intelligence Developer Name | Role | Phone | + +------+ + | Jessenia Bergman | PCP | | + +------+ [...] | | | ([facility]), Secondary | | | | | | | | hyperparathyroidism | | | | | | | | ([facility]) | | [...] | mouth once daily | | | 06/19 | | e | | inhaler | | | | 20 | | | + + + +---------+------+------+-------+ | sodium bicarbonate | take 1 tablet by | 1080 | 3 | 06/0 | | Activ | | 650 mg | mouth four times a | tablet | | 04/19 | | e | | tabletIndications: | day | | | 20 | | | | Essential | | | | | | | | hypertension, Anemia | | | | | | | | of chronic kidney | | | | | | | | failure, stage 5 | | | | | | | | ([facility]), Persistent | | | | | [...] under | 0.5 mL | 5 | 08/2 | | Activ | | (ARANESP, ALBUMIN [...] | | | ([facility]), Anemia of | | | | | | | | chronic kidney | | | | | | | | failure, stage 5 | | | | | | | | ([facility]), Persistent | | | | | [...] tablet by | 30 | 0 | 10/0 | | Activ | | (PRINIVIL,ZESTRIL) | mouth nightly. | tablet | | 2/20 | | e | | 2.5 MG tablet | | | | 20 | | | + + + +---------+------+------+-------+ | isosorbide | Take 1 tablet by | 30 | 0 | 10/0 | | Activ | | mononitrate (IMDUR) | mouth Daily. | tablet | | 2/20 | | e | | 30 mg ER tablet | | | | 20 | | | + + + +---------+------+------+-------+ | lisinopril | | | 1 | 07/0 | 10/0 | Disco | | (PRINIVIL, ZESTRIL) | | | | 5/20 | 2/20 | ntinu | | 10 mg tablet | | | | 19 | 20 | ed | | | | | | | | (Reor | | | | | | | | dixie | | | | | | | | (no | | | | | | | | Cance | | | | | | | | l Rx | | | | | | | | msg)) | + + + +---------+------+------+-------+ | amLODIPine | Take 1 tablet by | 90 | 3 | 11/0 | 10/0 | Disco | | (NORVASC) 5 mg | mouth Daily. | tablet | | 4/20 | 2/20 | ntinu | | tablet | | | | 19 | 20 | ed | + + + +---------+------+------+-------+ Active Problems + + + | Problem | Noted Date | + + + | Hemoptysis | 08/26/2020 | + + + | NSTEMI (non-ST elevated myocardial infarction) | 08/25/2020 | + + + | Acute respiratory failure with hypoxia | 08/25/2020 | + + + | Acute exacerbation of CHF (congestive heart failure) | 08/25/2020 | + + + | CKD (chronic kidney disease) stage 5, GFR less than 15 ml/min | 08/26/2019 | + + + + + | Overview: Added automatically from request for surgery | | [id number] | + + + + + | [...] & Plan: Controlled on current | | [id number] yr old male with COPD, current heavy [...] + + | 08/25/ | Telephone | Nephrology | Farrukh Acuna MD | Other (Patient | | 2020 | | | | hospitalized) | +--------+ + + + + | 08/24/ | Hospital | Internal Medicine | Sheyla Sevilla, | ESRD needing | | 2019 - | Encounter | | Dagoberto Platt, DO | dialysis (HCC) | | | | | [facility] | (Primary Dx); | | 09/01/ | | | MD Abdelrahman Nixon, | Hypervolemia, | | 2019 | | | MD Sha Strange, | unspecified | | | | | MD Edmund | hypervolemia type; | | | | | | NSTEMI (non-ST | | | | | | elevated myocardial | | | | | | infarction) ([facility]); | | | | | | Anemia of chronic | | | | | | renal failure, | | | | | | unspecified CKD | | | | | | stage; Congestive | | | | | | heart failure, | | | | | | unspecified HF | | | | | | chronicity, | | | | | | unspecified heart | | | | | | failure type ([facility]); | | | | | | CKD (chronic kidney | | | | | | disease) stage 5, | | | | | | GFR less than 15 | | | | | | ml/min ([facility]); Acute | | | | | | on chronic systolic | | | | | | congestive heart | | | | | | failure ([facility]); ESRD | | | | | | on hemodialysis | | | | | | ([facility]); Anemia in | | | | | | ESRD (end-stage | | | | | | renal disease) | | | | | | ([facility]); Electrolyte | | | | | | imbalance risk; | | | | | | Hyponatremia; | | | | | | Metabolic acidosis; | | | | | | Hyperphosphatemia; | | | | | | Edema of lower | | | | | | extremity; Essential | | | | | | hypertension; Acute | | | | | | respiratory failure | | | | | | with hypoxia ([facility]); | | | | | | Hemoptysis; | | | | | | Hypoalbuminemia; | | | | | | Tonsillar mass; | | | | | | Cervical adenopathy; | | | | | | 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 ([facility]); Acute | | | | | | pulmonary edema | | | | | | ([facility]) | +--------+ + + + + | 08/24/ | Telephone | Nephrology | Farrukh Acuna MD | Other (Patient call) | | 2020 | | | | [...] | | ([facility]); Anemia of | | | | | | chronic kidney | | | | | | failure, stage 5 | | | | | | ([facility]); Iron | | | | | [...] | | ([facility]); Edema of | | | | [...] | | ([facility]); Anemia of | | | | | | chronic kidney | | | | | | failure, stage 5 | | | | | | ([facility]); CKD (chronic | | | | | | kidney disease) | | | | | | stage 5, GFR less | | | | | | than 15 ml/min | | | | | | ([facility]); Persistent | | | | | | proteinuria | +--------+ + + + + | 08/09/ | Documentati | Nephrology | Alfred, | Mary Javed | | 2019 | on | | Charlie Abdi | MELISSA note 08/01/20) | | | | | Probation And Patrol Agent | | +--------+ + + + + | 08/01/ | Documentati | Nephrology | Simon, | Other (IV feraheme | | 2019 | on | | Charlie Abdi | order and new | | | | | Probation And Patrol Agent | procrit order sent | | | | | | to [facility] | | | | | | confirmation [...] | | ([facility]); Anemia of | | | | | | chronic kidney | | | | | | failure, stage 5 | | | | | | ([facility]); Persistent | | | | | | proteinuria; CKD | | | | | | (chronic kidney | | | | | | disease) stage 5, | | | | | | GFR less than 15 | | | | | | ml/min ([facility]) | +--------+ + + + + [...] + + + | Blood Pressure | 135/56 | 09/01/2020 7:27 AM | | | | | PDT | | + + + + + | Pulse | 71 | 09/01/2020 7:27 AM | | | | | PDT | | + + + + + | Temperature | 36.5 C (97.7 F) | 09/01/2020 7:27 AM | | | | | PDT | | + + + + + | Respiratory Rate | 19 | 09/01/2020 7:27 AM | | | | | PDT | | + + + + + | Oxygen Saturation | 98% | 09/01/2020 7:27 AM | | | | | PDT | | + + + + + | Inhaled Oxygen | - | - | | | Concentration | | | | + + + + + | Weight | 80 kg (176 lb 5.9 | 09/01/2020 3:59 AM | | | | oz) | PDT | | + + + + + | Height | 172.7 cm (5' 8") | 08/25/2020 5:10 AM | | | | | PDT | | + + + + + | Body Mass Index | 26.82 | 08/25/2020 5:10 AM | | | | | PDT [...] | | | | | | [place] [id number] | | | | | | [phone] | | | | | | | [...] | | | Visit | | [address], [place] | | | | | | [address] | | | | | | | [...] + + | Hemoglobin A1c | | 08/25/20 | | | Screening | | 20, | | | | | 07/14/20 | | | | | 18, | | | | | 10/27/20 | | | | | 17 | | + + + + + | Med Mgmt: HBA1C | | 08/25/20 | | | | 1 | 20, | | | | | 07/14/20 | | | | | 18, | | | | | 10/27/20 | | | | | 17 | | + + + + + | Medication | | 08/31/20 | | | Management | 1 | 20 | | + + + + + | Med Mgmt: Cr | | 08/31/20 | | | | 1 | 20, | | | | | 08/30/20 | | | | | 20, | | | | | 08/28/20 | | | | | 20, | | | | | Addition | | | | | al | | | | | history | | | | | exists | | + + + + + | Med Mgmt: K | | 08/31/20 | | | | 1 | 20, | | | | | 08/30/20 | | | | | 20, | | | | | 08/28/20 | | | | | 20, | | | | | Addition | | | | | al | | | | | history | | | | | exists | | + + + + + | Med Mgmt: Na | | 08/31/20 | | | | 1 | 20, | | | | | 08/30/20 | | | | | 20, | | | | | 08/28/20 | | | | | 20, | [...] + | Vaccine: Influenza | Completed | 08/09/20 | | | | | , | | | | | 08/04/20 | | | | | 19, | | | | | 08/04/20 | | | | | 19, | | | | | Addition | [...] | POC GLUCOSE (NON | Routin | 09/01/2020 | | Results for this | | ORD) | e | 6:29 AM | | procedure are in the | | | | PDT | | results section. | + +--------+ + + + | POC GLUCOSE (NON | Routin | 08/31/2020 | | Results for this | | ORD) | e | 8:41 PM | | procedure are in the | | | | PDT | | results section. | + +--------+ + + + | POC GLUCOSE (NON | Routin | 08/31/2020 | | Results for this | | ORD) | e | 4:31 PM | | procedure are in the | | | | PDT | | results section. | + +--------+ + + + | POC GLUCOSE (NON | Routin | 08/31/2020 | | Results for this | | ORD) | e | 12:19 PM | | procedure are in the | | | | PDT | | results section. | + +--------+ + + + | SURGICAL PATHOLOGY | Routin | 08/31/2020 | | Results for this | | EXAM | e | 7:00 AM | | procedure are in the | | | | PDT | | results section. | + +--------+ + + + | POC GLUCOSE (NON | Routin | 08/31/2020 | | Results for this | | ORD) | e | 6:10 AM | | procedure are in the | | | | PDT | | results section. | + +--------+ + + + | BASIC METABOLIC | Routin | 08/31/2020 | | Results for this | | PANEL | e | 4:32 AM | | procedure are in the | | | | PDT | | results section. | + +--------+ + + + | CBC NO DIFFERENTIAL | Routin | 08/31/2020 | | Results for this | | | e | 4:32 AM | | procedure are in the | | | | PDT | | results section. | + +--------+ + + + | POC GLUCOSE (NON | Routin | 08/30/2020 | | Results for this | | ORD) | e | 11:22 PM | | procedure are in the | | | | PDT | | results section. | + +--------+ + + + | POC GLUCOSE (NON | Routin | 08/30/2020 | | Results for this | | ORD) | e | 9:02 PM | | procedure are in the | | | | PDT | | results section. | + +--------+ + + + | POC GLUCOSE (NON | Routin | 08/30/2020 | | Results for this | | ORD) | e | 11:27 AM | | procedure are in the | | | | PDT | | results section. | + +--------+ + + + | POC GLUCOSE (NON | Routin | 08/30/2020 | | Results for this | | ORD) | e | 7:25 AM | | procedure are in the | | | | PDT | | results section. | + +--------+ + + + | POC GLUCOSE (NON | Routin | 08/30/2020 | | Results for this | | ORD) | e | 4:48 AM | | procedure are in the | | | | PDT | | results section. | + +--------+ + + + | BASIC METABOLIC | Routin | 08/30/2020 | | Results for this | | PANEL | e | 4:01 AM | | procedure are in the | | | | PDT | | results section. | + +--------+ + + + | CBC NO DIFFERENTIAL | Routin | 08/30/2020 | | Results for this | | | e | 4:01 AM | | procedure are in the | | | | PDT | | results section. | + +--------+ + + + | POC GLUCOSE (NON | Routin | 08/30/2020 | | Results for this | | ORD) | e | 2:40 AM | | procedure are in the | | | | PDT | | results section. | + +--------+ + + + | ECG 12 LEAD | STAT | 08/29/2020 | | Results for this | | | | 9:42 PM | | procedure are in the | | | | PDT | | results section. | + +--------+ + + + | TROPONIN I | Timed | 08/29/2020 | | Results for this | | | | 9:42 PM | | procedure are in the | | | | PDT | | results section. | + +--------+ + + + | POC GLUCOSE (NON | Routin | 08/29/2020 | | Results for this | | ORD) | e | 8:37 PM | | procedure are in the | | | | PDT | | results section. | + +--------+ + + + | POC GLUCOSE (NON | Routin | 08/29/2020 | | Results for this | | ORD) | e | 5:03 PM | | procedure are in the | | | | PDT | | results section. | + +--------+ + + + | CT ANGIOGRAM | Routin | 08/29/2020 | | Results for this | | PULMONARY | e | 1:36 PM | | procedure are in the | | | | PDT | | results section. | + +--------+ + + + | POC GLUCOSE (NON | Routin | 08/29/2020 | | Results for this | | ORD) | e | 11:22 AM | | procedure are in the | | | | PDT | | results section. | + +--------+ + + + | HEPATITIS B SURFACE | Routin | 08/29/2020 | | Results for this | | AB, QUANT | e | 10:32 AM | | procedure are in the | | | | PDT | | results section. | + +--------+ + + + | D-DIMER | Add-On | 08/29/2020 | | Results for this | | | | 10:32 AM | | procedure are in the | | | | PDT | | results section. | + +--------+ + + + | POC GLUCOSE (NON | Routin | 08/29/2020 | | Results for this | | ORD) | e | 7:15 AM | | procedure are in the | | | | PDT | | results section. | + +--------+ + + + | POC GLUCOSE (NON | Routin | 08/28/2020 | | Results for this | | ORD) | e | 8:54 PM | | procedure are in the | | | | PDT | | results section. | + +--------+ + + + | POC GLUCOSE (NON | Routin | 08/28/2020 | | Results for this | | ORD) | e | 4:52 PM | | procedure are in the | | | | PDT | | results section. | + +--------+ + + + | POC GLUCOSE (NON | Routin | 08/28/2020 | | Results for this | | ORD) | e | 11:18 AM | | procedure are in the | | | | PDT | | results section. | + +--------+ + + + | CBC NO DIFFERENTIAL | STAT | 08/28/2020 | | Results for this | | | | 9:37 AM | | procedure are in the | | | | PDT | | results section. | + +--------+ + + + | COMPREHENSIVE | STAT | 08/28/2020 | | Results for this | | METABOLIC PANEL | | 9:37 AM | | procedure are in the | | | | PDT | | results section. | + +--------+ + + + | POC GLUCOSE (NON | Routin | 08/28/2020 | | Results for this | | ORD) | e | 8:48 AM | | procedure are in the | | | | PDT | | results section. | + +--------+ + + + | POC GLUCOSE (NON | Routin | 08/28/2020 | | Results for this | | ORD) | e | 8:23 AM | | procedure are in the | | | | PDT | | results section. | + +--------+ + + + | POC GLUCOSE (NON | Routin | 08/28/2020 | | Results for this | | ORD) | e | 7:51 AM | | procedure are in the | | | | PDT | | results section. | + +--------+ + + + | POC GLUCOSE (NON | Routin | 08/28/2020 | | Results for this | | ORD) | e | 7:28 AM | | procedure are in the | | | | PDT | | results section. | + +--------+ + + + | POC GLUCOSE (NON | Routin | 08/27/2020 | | Results for this | | ORD) | e | 9:16 PM | | procedure are in the | | | | PDT | | results section. | + +--------+ + + + | POC GLUCOSE (NON | Routin | 08/27/2020 | | Results for this | | ORD) | e | 5:20 PM | | procedure are in the | | | | PDT | | results section. | + +--------+ + + + | XR ABDOMEN AP | STAT | 08/27/2020 | | Results for this | | UPRIGHT KUB AND PA | | 1:31 PM | | procedure are in the | | CHEST | | PDT | | results section. | + +--------+ + + + | POC GLUCOSE (NON | Routin | 08/27/2020 | | Results for this | | ORD) | e | 11:16 AM | | procedure are in the | | | | PDT | | results section. | + +--------+ + + + | POC GLUCOSE (NON | Routin | 08/27/2020 | | Results for this | | ORD) | e | 8:04 AM | | procedure are in the | | | | PDT | | results section. | + +--------+ + + + | POC GLUCOSE (NON | Routin | 08/26/2020 | | Results for this | | ORD) | e | 8:37 PM | | procedure are in the | | | | PDT | | results section. | + +--------+ + + + | POC GLUCOSE (NON | Routin | 08/26/2020 | | Results for this | | ORD) | e | 8:30 PM | | procedure are in the | | | | PDT | | results section. | + +--------+ + + + | POC GLUCOSE (NON | Routin | 08/26/2020 | | Results for this | | ORD) | e | 4:42 PM | | procedure are in the | | | | PDT | | results section. | + +--------+ + + + | TRANSFUSE 1 UNIT RED | Routin | 08/26/2020 | | | | BLOOD CELLS | e | 1:49 PM | | | | | | PDT | | | + +--------+ + + + | POC GLUCOSE (NON | Routin | 08/26/2020 | | Results for this | | ORD) | e | 12:19 PM | | procedure are in the | | | | PDT | | results section. | + +--------+ + + + | PRODUCT: RBC | STAT | 08/26/2020 | | Results for this | | | | 11:17 AM | | procedure are in the | | | | PDT | | results section. | + +--------+ + + + | POC GLUCOSE (NON | Routin | 08/26/2020 | | Results for this | | ORD) | e | 6:43 AM | | procedure are in the | | | | PDT | | results section. | + +--------+ + + + | PROTIME INR | Routin | 08/26/2020 | | Results for this | | | e | 5:20 AM | | procedure are in the | | | | PDT | | results section. | + +--------+ + + + | MAGNESIUM | Routin | 08/26/2020 | | Results for this | | | e | 5:20 AM | | procedure are in the | | | | PDT | | results section. | + +--------+ + + + | CBC WITH | Routin | 08/26/2020 | | Results for this | | DIFFERENTIAL | e | 5:20 AM | | procedure are in the | | | | PDT | | results section. | + +--------+ + + + | BASIC METABOLIC | Routin | 08/26/2020 | | Results for this | | PANEL | e | 5:20 AM | | procedure are in the | | | | PDT | | results section. | + +--------+ + + + | POC GLUCOSE (NON | Routin | 08/25/2020 | | Results for this | | ORD) | e | 8:34 PM | | procedure are in the | | | | PDT | | results section. | + +--------+ + + + | CK-MB | STAT | 08/25/2020 | | Results for this | | | | 7:44 PM | | procedure are in the | | | | PDT | | results section. | + +--------+ + + + | TRANSFUSE 1 UNIT RED | Routin | 08/25/2020 | | | | BLOOD CELLS | e | 7:28 PM | | | | | | PDT | | | + +--------+ + + + | POC GLUCOSE (NON | Routin | 08/25/2020 | | Results for this | | ORD) | e | 4:33 PM | | procedure are in the | | | | PDT | | results section. | + +--------+ + + + | CK-MB | STAT | 08/25/2020 | | Results for this | | | | 3:57 PM | | procedure are in the | | | | PDT | | results section. | + +--------+ + + + | TROPONIN I | STAT | 08/25/2020 | | Results for this | | | | 3:57 PM | | procedure are in the | | | | PDT | | results section. | + +--------+ + + + | PRODUCT: RBC | ALEXI | 08/25/2020 | | Results for this | | | | 2:49 PM | | procedure are in the | | | | PDT | | results section. | + +--------+ + + + | TYPE AND SCREEN | ALEXI | 08/25/2020 | | Results for this | | | | 2:49 PM | | procedure are in the | | | | PDT | | results section. | + +--------+ + + + | HEPATITIS B CORE AB, | Routin | 08/25/2020 | | Results for this | | TOTAL | e | 2:48 PM | | procedure are in the | | | | PDT | | results section. | + +--------+ + + + | HEPATITIS B SURFACE | Add-On | 08/25/2020 | | Results for this | | AG | | 2:48 PM | | procedure are in the | | | | PDT | | results section. | + +--------+ + + + | HEPATITIS C AB | Add-On | 08/25/2020 | | Results for this | | | | 2:48 PM | | procedure are in the | | | | PDT | | results section. | + +--------+ + + + | POC GLUCOSE (NON | Routin | 08/25/2020 | | Results for this | | ORD) | e | 12:03 PM | | procedure are in the | | | | PDT | | results section. | + +--------+ + + + | CK-MB | STAT | 08/25/2020 | | Results for this | | | | 11:57 AM | | procedure are in the | | | | PDT | | results section. | + +--------+ + + + | TROPONIN I | STAT | 08/25/2020 | | Results for this | | | | 11:57 AM | | procedure are in the | | | | PDT | | results section. | + +--------+ + + + | ECHO COMPLETE W | ALEXI | 08/25/2020 | | Results for this | | CONTRAST | | 11:52 AM | | procedure are in the | | | | PDT | | results section. | + +--------+ + + + | CORONAVIRUS | STAT | 08/25/2020 | | Results for this | | (COVID-19) NAAT | | 8:51 AM | | procedure are in the | | | | PDT | | results section. | + +--------+ + + + | POC GLUCOSE (NON | Routin | 08/25/2020 | | Results for this | | ORD) | e | 8:11 AM | | procedure are in the | | | | PDT | | results section. | + +--------+ + + + | TROPONIN I | STAT | 08/25/2020 | | Results for this | | | | 8:03 AM | | procedure are in the | | | | PDT | | results section. | + +--------+ + + + | CK-MB | STAT | 08/25/2020 | | Results for this | | | | 8:03 AM | | procedure are in the | | | | PDT | | results section. | + +--------+ + + + | LIPID PANEL | Routin | 08/25/2020 | | Results for this | | | e | 7:48 AM | | procedure are in the | | | | PDT | | results section. | + +--------+ + + + | HEMOGLOBIN A1C | Routin | 08/25/2020 | | Results for this | | | e | 7:48 AM | | procedure are in the | | | | PDT | | results section. | + +--------+ + + + | US RENAL LIMITED | Routin | 08/25/2020 | | Results for this | | | e | 7:30 AM | | procedure are in the | | | | PDT | | results section. | + +--------+ + + + | ECG 12 LEAD | Routin | 08/25/2020 | | Results for this | | | e | 5:57 AM | | procedure are in the | | | | PDT | | results section. | + +--------+ + + + | ECG 12 LEAD | STAT | 08/24/2020 | | Results for this | | | | 11:55 PM | | procedure are in the | | | | PDT | | results section. | + +--------+ + + + | XR CHEST AP PORTABLE | ALEXI | 08/24/2020 | | Results for this | | | | 11:25 PM | | procedure are in the | | | | PDT | | results section. | + +--------+ + + + | PROTIME INR | STAT | 08/24/2020 | | Results for this | | | | 11:02 PM | | procedure are in the | | | | PDT | | results section. | + +--------+ + + + | B TYPE NATRIURETIC | STAT | 08/24/2020 | | Results for this | | PEPTIDE | | 11:00 PM | | procedure are in the | | | | PDT | | results section. | + +--------+ + + + | PHOSPHORUS | STAT | 08/24/2020 | | Results for this | | | | 11:00 PM | | procedure are in the | | | | PDT | | results section. | + +--------+ + + + | MAGNESIUM | STAT | 08/24/2020 | | Results for this | | | | 11:00 PM | | procedure are in the | | | | PDT | | results section. | + +--------+ + + + | TROPONIN I | STAT | 08/24/2020 | | Results for this | | | | 11:00 PM | | procedure are in the | | | | PDT | | results section. | + +--------+ + + + | COMPREHENSIVE | STAT | 08/24/2020 | | Results for this | | METABOLIC PANEL | | 11:00 PM | | procedure are in the | | | | PDT | | results section. | + +--------+ + + + | CBC WITH | STAT | 08/24/2020 | | Results for this | | DIFFERENTIAL | | 11:00 PM | | procedure are in the | | | | PDT | | results section. | + +--------+ + + + | ED INFORMATION | Routin | 08/24/2020 | | | | EXCHANGE | e | 10:50 PM | | | | | | PDT | | | + +--------+ + + + +---+--------+ | | | | | Proced | | | ure | | | Note - | | | Wiley, | | | Lab In | | | | | | Hlseve | | | n - | | | 08/24/ | | | 2019 | | | 10:51 | | | PM PDT | | | | | | Format | | | ting | | | of | | | this | | | note | | | might | | | be | | | differ | | | ent | | | from | | | the | | | origin | | | al.COL | | | LECTIV | | | E?NOTI | | | FICATI | | | ON? | | | | | | 0 | | | 22:50? | | | ZAVALA | | | , | | | PORFIRIO | | | | | | F?MRN: | | | | | | [id number] | | | [id number] | | | riteri | | | a Met | | | 2 in | | | 2 10 | | | in 12 | | | | | | Histor | | | y of | | | Sepsis | | | Dx | | | Care | | | Guidel | | | inesSe | | | curity | | | and | | | Safety | | | No | | | recent | | | | | | Securi | | | ty | | | Events | | | | | | curren | | | tly on | | | | | | fileED | | | Care | | | Guidel | | | inesTh | | | ere | | | are | | | curren | | | tly no | | | ED | | | Care | | | Guidel | | | benoit | | | for | | | this | | | patien | | | t. | | | Please | | | check | | | your | | | facili | | | ty's | | | medica | | | l | | | record | | | s | | | system | | | .Care | | | Histor | | | yMedic | | | al/Lidya | | | [email or web address] | | | /17/20 | | | 12:00 | | | AM | | | [facility] [place] [facility] | [facility] | | | [facility] | | | ed [facility] | | | | | | office | | | to | | | verify | | | | | | respir | | | atory | | | medica | | | tion | | | regimi | | | ne. | | | Patien | | | t has | | | been | | | prescr | | | ibed | | | DANA's | | | in | | | MDI | | | and | | | nebuli | | | zor | | | form | | | and | | | triple | | | | | | therap | | | y for | | | mantan | | | ence | | | inhale | | | d | | | medica | | | tion. | | | Patien | | | t's | | | pharma | | | cy | | | histor | | | y | | | indica | | | nikki | | | that | | | he is | | | fillin | | | g his | | | inhale | | | d | | | medica | | | tions. 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 [place] [facility] | [facility] | | | [facility] | | | al | | | Patien | | | t | | | curren | | | tly | | | sees | | | nephro | | | logist | | | Dr | | | Akoum | | | and | | | patien | | | t has | | | last | | | seen | | | Dr | | | Akoum | | | on | | | 06/25/ | | | 18. | | | Patien | | | t had | | | last | | | seen | | | his | | | [facility] Dr | | | | | | Lundqu | | | ist on | | | | | | 06/06/ | | | 18. | | | [place] for | | | Dr | | | Lundqu | | | ist | | | will | | | provid | | | e ED | | | report | | | to Dr | | | Akoum | | | for | | | furthe | | | r | | | review | | | .This | | | patien | | | t has | | | had 5 | | | or | | | more | | | Emerge | | | ncy | | | Depart | | | ment | | | visits | | | in | | | the | | | last | | | 12 | | | months | | | .? | | | Patien | | | t | | | requir | | | es | | | educat | | | ion on | | | the | | | scope | | | and | | | purpos | | | e of | | | the ED | | | as an | | | acute | | | care | | | provid | | | er not | | | a | | | Primar | | | y Care | | | | | | Provid | | | er and | | | | | | should | | | not | | | be | | | utiliz | | | ed for | | | | | | chroni | | | c | | | condit | | | ions.? | | | If | | | patien | | | t | | | return | | | s to | | | ED | | | please | | | | | | contac | | | t | | | Commun | | | ity | | | Health | | | | | | Worker | | | , | | | Lizzy | | | at | | | [phone] | [phone] | [phone] | | | .These | | | are | | | guidel | | | benoit | | | and | | | the | | | provid | | | er | | | should | | | | | | exerci | | | se | | | clinic | | | al | | | judgme | | | nt | | | when | | | provid | | | ing | | | care.8 | | | /25/17 | | | 12:00 | | | AM | | | [facility] [place] [facility] | [facility] | | | [facility] | | | alHIST | | | ORY:?? 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 | | | Apply | | | approp | | | riate | | | clinic | | | al | | | planni | | | ng | | | practi | | | chio; | | | to | | | learn | | | more | | | visit | | | cdc.go | | | v/seps | | | is/cli | | | nicalt | | | ools / | | | | | | Attrib | | | uted | | | By: | | | [facility] | | | tive | | | Medica | | | l / | | | Attrib | | | uted | | | On: | | | 01/02/ | | | 2020 | | | Prescr | | | iption | | | Drug | | | Report | | | (12 | | | Mo.)PD | | | MP | | | query | | | found | | | no | | | report | | | .E.D. | | | Visit | | | Count | | | (12 | | | mo.)Fa | | | cility | | | | | | Visits | | | Low | | | [facility] | | | | | | [facility] | | | | | | [facility] | | | al | | | Medica | | | l | | | Center | | | 1 0 | | | [facility] [place] | | | y | | | Hospit | | | al 13 | | | 0 | | | Total | | | 14 0 | | | Note: | | | Visits | | | | | | indica | | | te | | | total | | | known | | | visits | | | . | | | Medica | | | id Low | | | | | | Acuity | | | Dx | | | are | | | the | | | number | | | of | | | primar | | | y | | | diagno | | | ses on | | | the | | | Medica | | | id's | | | Low | | | Acuity | | | dx | | | list. | | | | | | Recent | | | | | | Emerge | | | ncy | | | Depart | | | ment | | | Visit | | | [facility] | | | yShowi | | | ng 10 | | | most | | | recent | | | | | | visits | | | out | | | of 14 | | | in the | | | past | | | 12 | | | months | | | Date | | | Facili | | | ty | | | City | | | State | | | Type | | | Diagno | | | ses or | | | Chief | | | | | | Compla | | | int | | | Sep | | | 24, | | | 2020 | | | [facility] | | | | | | [facility] | | | al | | | [facility] | | | [place] | | | [place] | | | Emerge | | | ncy | | | Sep | | | 24, | | | 2020 | | | [facility] [place] | | | [facility] | | | [place] | | | [place] | | | Emerge | | | ncy | | | Chief | | | Compla | | | int: | | | WEAKNE | | | SS | | | Sep | | | 16, | | | 2020 | | | [facility] [place] | | | [facility] | | | [place] | | | [place] | | | Emerge | | | ncy | | | Chief | | | Compla | | | int: | | | DIFFIC | | | ULTY | | | BREATH | | | ING | | | Sep | | | 15, | | | 2020 | | | [facility] [place] | | | [facility] | | | [place] | | | [place] | | | Emerge | | | ncy | | | | | | Chroni | | | c | | | kidney | | | | | | diseas | | | e, | | | unspec | | | ified | | | | | | Dyspne | | | a, | | | unspec | | | ified | | | | | | Hypert | | | ensive | | | heart | | | and | | | chroni | | | c | | | kidney | | | | | | diseas | | | e with | | | heart | | | fail | | | | | | Shortn | | | ess of | | | | | | breath | | | | | | Type 2 | | | | | | diabet | | | es | | | mellit | | | us | | | with | | | diabet | | | ic | | | chroni | | | c | | | kidney | | | | | | diseas | | | e | | | Heart | | | failur | | | e, | | | unspec | | | ified | | | | | | Long | | | term | | | (curre | | | nt) | | | use of | | | | | | insuli | | | n | | | Allerg | | | y | | | status | | | to | | | other | | | drugs, | | | | | | medica | | | ments | | | and | | | biolog | | | ical | | | sub | | | | | | Chroni | | | c | | | kidney | | | | | | diseas | | | e, | | | stage | | | 4 | | | (sever | | | e) | | | Nicoti | | | ne | | | depend | | | ence, | | | unspec | | | ified, | | | | | | uncomp | | | licate | | | d Sep | | | 1, | | | 2020 | | | [facility] [place] | | | [facility] | | | [place] | | | [place] | | | Emerge | | | ncy | | | | | | Depend | | | ence | | | on | | | renal | | | dialys | | | is | | | Long | | | term | | | (curre | | | nt) | | | use of | | | | | | insuli | | | n | | | Chest | | | pain, | | | unspec | | | ified | | | | | | Chroni | | | c | | | kidney | | | | | | diseas | | | e, | | | stage | | | 4 | | | (sever | | | e) | | | Heart | | | failur | | | e, | | | unspec | | | ified | | | | | | Hypert | | | ensive | | | heart | | | and | | | chroni | | | c | | | kidney | | | | | | diseas | | | e with | | | heart | | | fail | | | | | | Nicoti | | | ne | | | depend | | | ence, | | | unspec | | | ified, | | | | | | uncomp | | | licate | | | d | | | Other | | | long | | | term | | | (curre | | | nt) | | | drug | | | therap | | | y | | | Type 2 | | | | | | diabet | | | es | | | mellit | | | us | | | with | | | diabet | | | ic | | | chroni | | | c | | | kidney | | | | | | diseas | | | e | | | Chroni | | | c | | | obstru | | | ctive | | | pulmon | | | sarthak | | | diseas | | | e, | | | unspec | | | ified | | | Jae | | | 9, | | | 2020 | | | [facility] [place] | | | [facility] | | | [place] | | | [place] | | | Emerge | | | ncy | | | Type | | | 2 | | | diabet | | | es | | | mellit | | | us | | | with | | | diabet | | | ic | | | chroni | | | c | | | kidney | | | | | | diseas | | | e | | | Other | | | long | | | term | | | (curre | | | nt) | | | drug | | | therap | | | y | | | Long | | | term | | | (curre | | | nt) | | | use of | | | | | | insuli | | | n | | | Allerg | | | y | | | status | | | to | | | other | | | drugs, | | | | | | medica | | | ments | | | and | | | biolog | | | ical | | | sub | | | | | | Consti | | | pation | | | , | | | unspec | | | ified | | | | | | Heart | | | failur | | | e, | | | unspec | | | ified | | | | | | Hypert | | | ensive | | | heart | | | and | | | chroni | | | c | | | kidney | | | | | | diseas | | | e with | | | heart | | | fail | | | | | | Weakne | | | ss | | | Chroni | | | c | | | kidney | | | | | | diseas | | | e, | | | stage | | | 4 | | | (sever | | | e) | | | Gastro | | | -esoph | | | ageal | | | reflux | | | | | | diseas | | | e | | | withou | | | t | | | esopha | | | gitis | | | Tom | | | 16, | | | 2020 | | | [facility] [place] | | | [facility] | | | [place] | | | [place] | | | Emerge | | | ncy | | | | | | Chroni | | | c | | | obstru | | | ctive | | | pulmon | | | sarthak | | | diseas | | | e, | | | unspec | | | ified | | | | | | Other | | | long | | | term | | | (curre | | | nt) | | | drug | | | therap | | | y | | | Allerg | | | y | | | status | | | to | | | other | | | drugs, | | | | | | medica | | | ments | | | and | | | biolog | | | ical | | | sub | | | Long | | | term | | | (curre | | | nt) | | | use of | | | | | | insuli | | | n | | | Chest | | | pain, | | | unspec | | | ified | | | | | | Person | | | al | | | histor | | | y of | | | nicoti | | | ne | | | depend | | | ence | | | | | | Chroni | | | c | | | kidney | | | | | | diseas | | | e, | | | stage | | | 4 | | | (sever | | | e) | | | Type 2 | | | | | | diabet | | | es | | | mellit | | | us | | | with | | | diabet | | | ic | | | chroni | | | c | | | kidney | | | | | | diseas | | | e | | | Heart | | | failur | | | e, | | | unspec | | | ified | | | | | | Hypert | | | ensive | | | heart | | | and | | | chroni | | | c | | | kidney | | | | | | diseas | | | e with | | | heart | | | fail | | | Tom | | | 11, | | | 2020 | | | [facility] [place] | | | [facility] | | | [place] | | | [place] | | | Emerge | | | ncy | | | Long | | | term | | | (curre | | | nt) | | | use of | | | | | | insuli | | | n | | | Heart | | | failur | | | e, | | | unspec | | | ified | | | | | | Long | | | term | | | (curre | | | nt) | | | use of | | | | | | aspiri | | | n | | | Allerg | | | y | | | status | | | to | | | other | | | drugs, | | | | | | medica | | | ments | | | and | | | biolog | | | ical | | | sub | | | | | | Weakne | | | ss | | | Chroni | | | c | | | kidney | | | | | | diseas | | | e, | | | stage | | | 4 | | | (sever | | | e) | | | Hypert | | | ensive | | | heart | | | and | | | chroni | | | c | | | kidney | | | | | | diseas | | | e with | | | heart | | | fail | | | | | | Chroni | | | c | | | obstru | | | ctive | | | pulmon | | | sarthak | | | diseas | | | e, | | | unspec | | | ified | | | | | | Nicoti | | | ne | | | depend | | | ence, | | | unspec | | | ified, | | | | | | uncomp | | | licate | | | d | | | Other | | | long | | | term | | | (curre | | | nt) | | | drug | | | therap | | | y Tom | | | 8, | | | 2020 | | | [facility] [place] | | | [facility] | | | [place] | | | [place] | | | Emerge | | | ncy | | | | | | Chroni | | | c | | | obstru | | | ctive | | | pulmon | | | sarthak | | | diseas | | | e, | | | unspec | | | ified | | | | | | Hypert | | | ensive | | | heart | | | and | | | chroni | | | c | | | kidney | | | | | | diseas | | | e with | | | heart | | | fail | | | | | | Type 2 | | | | | | diabet | | | es | | | mellit | | | us | | | with | | | diabet | | | ic | | | chroni | | | c | | | kidney | | | | | | diseas | | | e | | | Chroni | | | c | | | kidney | | | | | | diseas | | | e, | | | stage | | | 4 | | | (sever | | | e) | | | Other | | | chest | | | pain | | | | | | Nicoti | | | ne | | | depend | | | ence, | | | unspec | | | ified, | | | | | | uncomp | | | licate | | | d | | | Other | | | long | | | term | | | (curre | | | nt) | | | drug | | | therap | | | y | | | Chest | | | pain, | | | unspec | | | ified | | | | | | Heart | | | failur | | | e, | | | unspec | | | ified | | | Mar | | | 16, | | | 2020 | | | [facility] [place] | | | [facility] | | | [place] | | | [place] | | | Emerge | | | ncy | | | | | | Nicoti | | | ne | | | depend | | | ence, | | | unspec | | | ified, | | | | | | uncomp | | | licate | | | d | | | Type 2 | | | | | | diabet | | | es | | | mellit | | | us | | | with | | | hyperg | | | lycemi | | | a | | | Chest | | | pain, | | | unspec | | | ified | | | | | | Chroni | | | c | | | obstru | | | ctive | | | pulmon | | | sarthak | | | diseas | | | e, | | | unspec | | | ified | | | | | | Heart | | | failur | | | e, | | | unspec | | | ified | | | | | | Hypert | | | ensive | | | heart | | | | | | diseas | | | e with | | | heart | | | | | | failur | | | e | | | Recent | | | | | | Inpati | | | ent | | | Visit | | | [facility] | | | yDate | | | Facili | | | ty | | | City | | | State | | | Type | | | Diagno | | | ses or | | | Chief | | | | | | Compla | | | int | | | Sep | | | 16, | | | 2020 | | | [facility] [place] | | | [facility] | | | [place] | | | [place] | | | Medica | | | l | | | Surgic | | | al | | | Acute | | | respir | | | atory | | | failur | | | e with | | | | | | hypoxi | | | a | | | Long | | | term | | | (curre | | | nt) | | | use of | | | | | | insuli | | | n | | | Allerg | | | y | | | status | | | to | | | other | | | drugs, | | | | | | medica | | | ments | | | and | | | biolog | | | ical | | | sub | | | | | | Depend | | | ence | | | on | | | wheelc | | | hair | | | | | | Anemia | | | in | | | chroni | | | c | | | kidney | | | | | | diseas | | | e | | | Anxiet | | | y | | | disord | | | er, | | | unspec | | | ified | | | | | | Acute | | | systol | | | ic | | | (conge | | | stive) | | | heart | | | | | | failur | | | e | | | Nicoti | | | ne | | | depend | | | ence, | | | cigare | | | ttes, | | | uncomp | | | licate | | | d | | | Hypert | | | ensive | | | heart | | | and | | | chroni | | | c | | | kidney | | | | | | diseas | | | e with | | | heart | | | fail | | | | | | Hyperk | | | alemia | | | Oct | | | 28, | | | 2019 | | | [facility] [place] | | | [facility] | | | [place] | | | [place] | | | Medica | | | l | | | Surgic | | | al | | | Pneumo | | | korey | | | due to | | | | | | Strept | | | ococcu | | | s | | | pneumo | | | niae | | | | | | Hyperl | | | ipidem | | | ia, | | | unspec | | | ified | | | | | | Chroni | | | c pain | | | | | | syndro | | | me | | | Type 2 | | | | | | diabet | | | es | | | mellit | | | us | | | with | | | diabet | | | ic | | | chroni | | | c | | | kidney | | | | | | diseas | | | e | | | Allerg | | | y | | | status | | | to | | | other | | | drugs, | | | | | | medica | | | ments | | | and | | | biolog | | | ical | | | sub | | | | | | Person | | | al | | | histor | | | y of | | | transi | | | ent | | | ischem | | | ic | | | attack | | | | | | (TIA), | | | and | | | cere | | | Drug | | | | | | induce | | | d | | | consti | | | pation | | | | | | Anemia | | | in | | | chroni | | | c | | | kidney | | | | | | diseas | | | e | | | Hypert | | | ensive | | | | | | chroni | | | c | | | kidney | | | | | | diseas | | | e with | | | stage | | | 1 | | | throug | | | h stag | | | | | | Long | | | term | | | (curre | | | nt) | | | use of | | | | | | aspiri | | | n | | | Care | | | TeamPr | | | ovider | | | | | | Specia | | | lty | | | Phone | | | Fax | | | Servic | | | e | | | Dates | | | JOHNSO | | | N, | | | JESSENIA | | | , | | | M.D. | | | Family | | | | | | Medici | | | ne | | | (541) | | | [phone] | | | 00 | | | (541) | | | [phone] | | | 27 Tom | | | 9, | | | 2020 - | | | | | | Curren | | | t | | | LUNDQU | | | IST, | | | GORAN | | | OPHER | | | J, | | | M.D. | | | Family | | | | | | Medici | | | ne | | | (541) | | | [phone] | | | 95 | | | (541) | | | [phone] | | | 20 Mar | | | 19, | | | 2019 - | | | | | | Curren | | | t | | | Shephe | | | rd, | | | Alina | | | Case | | | Manage | | | r/Care | | | | | | Coordi | | | nator | | | (541) | | | [phone] | | | 35 | | | Oct 1, | | | 2018 | | | - | | | Cur[facility] | | | t | | | [facility] | | | tive | | | Portal | | | This | | | patien | | | t has | | | regist | | | ered | | | at the | | | | | | [facility] | | | | | | [facility] | | | al | | | Medica | | | l | | | Center | | | | | | Emerge | | | ncy | | | Depart | | | ment | | | For | | | more | | | inform | | | ation | | | visit: | | | | | | https: | | | //secu | | | re.col | | | lectiv | | | emedic | | | al.com | | | /notif | | | y/06ce | | | [id number] | | | [id number] | | | [email or web address] | | | [phone] | | | [id number] | | | 9a | | | PLEASE | | | NOTE: | | | 1. | | | Any | | | care | | | recomm | | | endati | | | ons | | | and | | | other | | | clinic | | | al | | | inform | | | ation | | | are | | | provid | | | ed as | | | guidel | | | benoit | | | or for | | | | | | histor | | | ical | | | purpos | | | es | | | only, | | | and | | | provid | | | ers | | | should | | | | | | exerci | | | se | | | their | | | own | | | clinic | | | al | | | judgme | | | nt | | | when | | | provid | | | ing | | | care. | | | 2. | | | You | | | may | | | only | | | use | | | this | | | inform | | | ation | | | for | | | purpos | | | es of | | | treatm | | | ent, | | | paymen | | | t or | | | health | | | care | | | operat | | | ions | | | activi | | | ties, | | | and | | | subjec | | | t to | | | the | | | limita | | | tions | | | of | | | applic | | | able | | | [facility] | | | tive | | | Polici | | | es. | | | 3. | | | You | | | should | | | | | | consul | | | t | | | direct | | | ly | | | with | | | the | | | organi | | | zation | | | that | | | provid | | | ed a | | | care | | | guidel | | | ine or | | | other | | | | | | clinic | | | al | | | histor | | | y with | | | any | | | questi | | | ons | | | about | | | additi | | | onal | | | inform | | | ation | | | or | | | accura | | | cy or | | | comple | | | teness | | | of | | | inform | | | ation | | | provid | | | ed.? | | | 2019 | | | [facility] | | | tive | | | Medica | | | l | | | Techn[employer] | | | logies | | | , Inc[employer] | | | - | | | [email or web address] | | | llecti | | | vemedi | | | [email or web address] | | | m | +---+--------+ + +--------+ +---+ + | BASIC METABOLIC | Routin | 08/01/2020 | | Results for this | | PANEL | e | | | procedure are in the | | | | | | results section. | + +--------+ +---+ + | CBC NO DIFFERENTIAL | Routin | 08/01/2020 | | Results for this | | | e | | | procedure are in the | | | | | | results section. | + +--------+ +---+ + from Last 3 Months Results POC Glucose (09/01/2020 6:29 AM PDT)Only the most recent of 35 results within the time per iod is included. + + + + + + | Component | Value | Ref Range | Performed | Pathologist | | | | | At | Signature | + + + + + + | Glucose, | 115 (H)Comment: Testing | 65 - 99 mg/dL | [facility] | | | POC | performed at [facility];[address] | | LABORATORY | | | | [address];[place], [place] | | | | | | [address] | | | | + + + + + + + + | Specimen | + + | | + + + + + + + | Performing | Address | City/State/Zipcode | Phone Number | | Organization | | | | + + + + + | [facility] | [address] | [place] [address] | [phone] | + + + + + Surgical Pathology Exam (08/31/2020 7:00 AM PDT) + + | Specimen | + + | Tissue - Specimen | | from tonsil | | (specimen) | + + + + + | Narrative | Performed At | + + + | THIS IS | [facility] | | AN ADDENDUM REPORT SPECIMEN(S): A TONSIL, RT SPECIMEN SOURCE:A. | [facility] | | TONSIL, RT CLINICAL HISTORY:No preop or clinical information is given | | | on requisition. FROZEN SECTION DIAGNOSIS:A. 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 (Dr. Browning, 08/31/20, 7:19 AM) Frozen section | | | diagnosis called to Dr. Barba. Frozen section performed at [facility]. | | | AI (under the direct supervision of a pathologist) The Gross | | | Description was prepared using a voice recognition system. The | | | report was reviewed for accuracy; however, sound-alike word errors, | | | addition and/or deletions may occur. If there is anyquestion about | | | this report, please contact Client Services. 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 As part of the | | | [employer] [facility], this case was reviewed by another member of | | | [facility]. (AMB) MICROSCOPIC EXAMINATION:Histologic sections | | | of all submitted blocks are examined by light microscopy. These | | | findings, together with the gross examination, support the pathologic | | | diagnosis. GROSS DESCRIPTION:The specimen, labeled "DC, right tonsil | | | biopsy," is received fresh for frozen section diagnosis and consists | | | of a 1.2 x 1.1 x 0.5 cm tissue fragment that is entirely submitted for | | | frozen section andthen submitted for permanent in one cassette (A1). | | | PERFORMING LABORATORY:The professional interpretation was performed by | | | [facility], [address], | | | [place], [place] ([employer] Technician: Pastor Browning M.D.; CLIA#: | | | [id number]).The technical component was performed by [facility] | | | [facility], [address] [place] [id number] ([employer] Technician: | | | Kerry Michel MD; CLIA# [id number]). COMMENT:Surrogate HPV marker p16 is | | | strongly positive. REASON FOR ADDENDUM:p16 result Diagnostician: | | | Pastor Browning MDPathologistElectronically Signed 09/05/2020 | | | | | |MICROSCOPIC EXAMINATION: | | |Histologic sections of all submitted blocks are examined by light microscopy. These findi ngs, together with the gross examination, support the pathologic diagnosis. | | | | | |GROSS DESCRIPTION: | | |The specimen, labeled "DC, right tonsil biopsy," is received fresh for frozen section diagn osis and consists of a 1.2 x 1.1 x 0.5 cm tissue fragment that is entirely submitted for fro cassie section and | | |then submitted for permanent in one cassette (A1). | | | | | |PERFORMING LABORATORY: | | |The professional interpretation was performed by [facility], [address] ([employer] Technician: Pastor Browning M.D.; CLIA#: [id number]). | | |The technical component was performed by [facility], [address] [place] [id number] ([employer] Technician: Kerry Michel MD; CLIA# [id number]). | | | | | |COMMENT: | | |Surrogate HPV marker p16 is strongly positive. | | | | | |REASON FOR ADDENDUM: | | |p16 result | | | | | |Diagnostician: Pastor Browning MD | | |Pathologist | | |Electronically Signed 09/05/2020 | | | | | | | | + + + + +---------+ + + | Performing | Address | City/State/Zipcode | Phone Number | | Organization | | | | + +---------+ + + | [facility] | | | | | [facility] | | | | + +---------+ + + CBC no Differential (08/31/2020 4:32 AM PDT)Only the most recent of 3 results within the period is included. + + + + + + | Component | Value | Ref Range | Performed | Pathologist | | | | | At | Signature | + + + + + + | WBC | 9.83 | 3.80 - 11.00 | [facility] | | | | | K/uL | LABORATORY | | + + + + + + | Red Blood | 3.35 (L) | 4.20 - 5.70 | [facility] | | | Cells | | M/uL | LABORATORY | | + + + + + + | Hemoglobin | 9.7 (L) | 13.2 - 17.0 | [facility] | | | | | g/dL | LABORATORY | | + + + + + + | Hematocrit | 30.2 (L) | 39.0 - 50.0 % | [facility] | | | | | | LABORATORY | | + + + + + + | MCV | 90.1 | 80.0 - 100.0 fl | [facility] | | | | | | LABORATORY | | + + + + + + | MCH | 29.0 | 27.0 - 34.0 pg | [facility] | | | | | | LABORATORY | | + + + + + + | MCHC | 32.1 | 32.0 - 35.5 | [facility] | | | | | g/dL | LABORATORY | | + + + + + + | RDW-SD | 47.8 | 37 - 53 fl | [facility] | | | | | | LABORATORY | | + + + + + + | Platelet | 249 | 150 - 400 K/uL | [facility] | | | Count | | | LABORATORY | | + + + + + + | MPV | 10.8Comment: NO NORMAL | fl | [facility] | | | | [facility] | | LABORATORY | | | | performed at [facility], [address] | | | | [address], | | | | | | [place] [address] | | | | + + + + + + + + | Specimen | + + | Blood | + + + + + + + | Performing | Address | City/State/Zipcode | Phone Number | | Organization | | | | + + + + + | [facility] | [address] | [place] [address] | [phone] | + + + + + Basic Metabolic Panel (08/31/2020 4:32 AM PDT)Only the most recent of 4 results within the time period is included. + + + + + + | Component | Value | Ref Range | Performed | Pathologist | | | | | At | Signature | + + + + + + | Na | 135 | 135 - 145 | [facility] | | | | | mmol/L | LABORATORY | | + + + + + + | K | 4.3 | 3.5 - 4.9 | [facility] | | | | | mmol/L | LABORATORY | | + + + + + + | Cl | 99 | 99 - 109 mmol/L | [facility] | | | | | | LABORATORY | | + + + + + + | CO2 | 28 | 23 - 32 mmol/L | [facility] | | | | | | LABORATORY | | + + + + + + | Anion Gap | 12 | 5 - 20 mmol/L | [facility] | | | | | | LABORATORY | | + + + + + + | Glucose | 121 (H) | 65 - 99 mg/dL | [facility] | | | | | | LABORATORY | | + + + + + + | BUN | 30 (H) | 8 - 25 mg/dL | [facility] | | | | | | LABORATORY | | + + + + + + | Creatinine | 3.20 (H) | 0.70 - 1.30 | [facility] | | | | | mg/dL | LABORATORY | | + + + + + + | BUN/Creatin | 9 | | [facility] | | | ine Ratio | | | LABORATORY | | + + + + + + | Calcium | 7.6 (L) | 8.5 - 10.5 | [facility] | | | | | mg/dL | LABORATORY | | + + + + + + | Estimated | 19 (L)Comment: GFR <60: | >60 | [facility] [...] | | | | | performed at [facility], [address] | | [address] | [address] [facility], | | | | | | [place] [address] | | | | + + + + + + + + | Specimen | + + | Blood | + + + + + + + | Performing | Address | City/State/Zipcode | Phone Number | | Organization | | | | + + + + + | [facility] | [address] | [place] [address] | [phone] | + + + + + ECG 12 lead (08/29/2020 9:42 PM PDT)Only the most recent of 3 results within the time [place] od is included. + + + + + + | Component | Value | Ref Range | Performed | Pathologist | | | | | At | Signature | + + + + + + | VENTRICULAR | 79 | BPM | [facility] | | | RATE EKG | | | | | + + + + + + | ATRIAL RATE | 79 | BPM | [facility] | | [...] + + + + | Q-T | 442 | ms | [facility] | | | INTERVAL | | | | | + + + + + + | Q-T | 506 | ms | [facility] | | | INTERVAL | | | | | | (CORRECTED) | | | | | + + + + + + | P WAVE AXIS | 47 | degrees | [facility] | | + + + + + + | QRS AXIS | 49 | degrees | [facility] | | + + + + + + | T AXIS | -174 | degrees | [facility] | | + + + + + + | INTERPRETAT | Sinus rhythm with | | [facility] | | | ION TEXT | Premature atrial | | | | | | complexesAnterior | | | | | | infarct , age | | | | | | undeterminedST & T wave | | | | | | abnormality, consider | | | | | | lateral | | | | | | ischemiaProlonged | | | | | | QTAbnormal ECGWhen | | | | | | compared with ECG of | | | | | | 25-AUG-2020 | | | | | | 05:57,Premature atrial | | | | | | complexes are now | | | | | | PresentIncomplete left | | | | | | bundle branch block is | | | | | | no longer | | | | | | PresentConfirmed by | | | | | | HANNY BARRETO ([id number]) | | | | | | on 08/30/2020 8:21:55 AM | | | | + + [...] | | | + +---------+ + + Troponin I (08/29/2020 9:42 PM PDT)Only the most recent of 5 results within the time jared montanez is included. + + + + + + | Component | Value | Ref Range | Performed | Pathologist | | | | | At | Signature | + + + + + + | Troponin I | 1.886 ()Comment: | 0.00 - 0.04 | [facility] | | | | 0.04 ng/mL or less | ng/mL | LABORATORY | | | | Negative, repeat | | | | | | testing in four to six | | | | | | hour ifclinically | | | | | | indicted0.05 to 0.77 | | | | | | ng/mL | | | | | | Suspicious for | | | | | | myocardial injury. | | | | | | Serial measurementsmay | | | | | | be necessary to confirm | | | | | | or exclude the diagnosis | | | | | | of acute | | | | | | coronarysyndrome. Repeat | | | | | | testing in four to six | | | | | | hours if indicated.0.78 | | | | | | or greater ng/mL | | | | | | Consistent with | | | | | | myocardial injury. | | | | | | Clinical andlaboratory | | | | | | correlation recommended. | | | | | | RESULT READ BACK BY:BAN | | | | | | MICHELLE Reza ON [id number] AT | | | | | | [id number] BY JFTesting | | | | | | performed at [facility];[address] | | | | | | [address];[place] | | | | | | [address] | | | | + + + + + + + + | Specimen | + + | Blood | + + + + + + + | Performing | Address | City/State/Zipcode | Phone Number | | Organization | | | | + + + + + | [facility] | [address] | [place] [address] | [phone] | + + + + + CT Angiogram Pulmonary w Contrast (08/29/2020 1:36 PM PDT) + + | Specimen | + + | | + + + + + | Impressions | Performed At | + + + | 1. No pulmonary embolism. 2. Mild bilateral pulmonary edema. | [facility] | | 3. Moderate bilateral pulmonary effusions associated bibasilar | | | atelectasis. 4. Single enlarged paratracheal lymph node, likely | | | reactive. Attention on follow-up examinations. 5. 2.6 x 2.9 cm | | | low-attenuation lesion in the liver of unknown chronicity common is | | | low-attenuation likely a cyst or hemangioma, could be further | | | evaluated with ultrasound or multiphase cross-sectional imaging if | | | clinically indicated. 6. Status post cholecystectomy. | | | Final Report Signed by: Idris Diaz, Collin Ribera Date/Time: | | | 08/29/2020 1:54 PM | | + + + + + + | Narrative | Performed At | + + + | CT ANGIOGRAM PULMONARY CLINICAL INFORMATION: PE suspected, | [facility] | | intermediate prob, positive D-dimer COMPARISON: XR CHEST AP | | | PORTABLE (08/24/2020); ECHO OUTSIDE INTERPRETATION (03/26/2016); XR | | | CHEST PA AND LATERAL (06/24/2013); PROCEDURE: Thin-section images | | | of the entire chest after the administration of 65 ml Omnipaque 350 | | | intravenous contrast. 3D MIP thin slab images and 2D multiplanar | | | reconstructions performed. At least one of the following CT dose | | | optimization techniques were used: Automated exposure control; | | | Adjustment of mA and/or kV according to patient size; Use of | | | iterative reconstruction technique. FINDINGS: PULMONARY ARTERIES: | | | No pulmonary embolism. RIGHT VENTRICLE TO LEFT VENTRICLE RATIO: | | | Not applicable. (Maximum short axis diameter on axial image. | | | Applicable only when pulmonary embolism present. Abnormal greater | | | than or equal to 0.9.) CHEST Lungs, Pleura and Airways: There is | | | mild bilateral pulmonary edema. Moderate bilateral pleural effusions | | | and bibasilar atelectasis. No airway narrowing or obstruction. | | | Mediastinum: No significant pericardial, great vessel or esophageal | | | abnormality. No mediastinal mass. Lymph Nodes: There is an enlarged | | | high paratracheal node measuring 1.3 cm transverse (series 5, image | | | 53) Upper Abdomen: There is a 2.6 x 2.9 cm low-attenuation lesion in | | | the liver patient is status post cholecystectomy. There is | | | atherosclerotic calcification of the abdominal aorta and its | | | visualized branch vessels. BODY WALL Soft Tissues: The soft | | | tissues of the chest wall are unremarkable. Bones: No acute fracture | | | or vertebral end plate destruction. No lytic or blastic lesion. | | + + + + + | Procedure Note | + + | [place], [id number] - 08/29/2020 1:58 PM PDT | | CT ANGIOGRAM PULMONARY | | | | CLINICAL INFORMATION: | | PE suspected, intermediate prob, positive D-dimer | | | | COMPARISON: | | XR CHEST AP PORTABLE (08/24/2020); ECHO OUTSIDE INTERPRETATION | | (03/26/2016); XR CHEST PA AND LATERAL (06/24/2013); | | | | PROCEDURE: | | Thin-section images of the entire chest after the administration of 65 | | ml Omnipaque 350 intravenous contrast. 3D MIP thin slab images and 2D | | multiplanar reconstructions performed. | | | | At least one of the following CT dose optimization techniques were | | used: Automated exposure control; Adjustment of mA and/or kV according | | to patient size; Use of iterative reconstruction technique. | | | | FINDINGS: | | PULMONARY ARTERIES: No pulmonary embolism. | | | | RIGHT VENTRICLE TO LEFT VENTRICLE RATIO: Not applicable. (Maximum short | | axis diameter on axial image. Applicable only when pulmonary embolism | | present. Abnormal greater than or equal to 0.9.) | | | | CHEST | | Lungs, Pleura and Airways: There is mild bilateral pulmonary edema. | | Moderate bilateral pleural effusions and bibasilar atelectasis. No | | airway narrowing or obstruction. | | Mediastinum: No significant pericardial, great vessel or esophageal | | abnormality. No mediastinal mass. | | Lymph Nodes: There is an enlarged high paratracheal node measuring 1.3 | | cm transverse (series 5, image 53) | | Upper Abdomen: There is a 2.6 x 2.9 cm low-attenuation lesion in the | | liver patient is status post cholecystectomy. There is atherosclerotic | | calcification of the abdominal aorta and its visualized branch vessels. | | | | BODY WALL | | Soft Tissues: The soft tissues of the chest wall are unremarkable. | | Bones: No acute fracture or vertebral end plate destruction. No lytic | | or blastic lesion. | | | | IMPRESSION: | | 1. No pulmonary embolism. | | | | 2. Mild bilateral pulmonary edema. | | | | 3. Moderate bilateral pulmonary effusions associated bibasilar | | atelectasis. | | | | 4. Single enlarged paratracheal lymph node, likely reactive. | | Attention on follow-up examinations. | | | | 5. 2.6 x 2.9 cm low-attenuation lesion in the liver of unknown | | chronicity common is low-attenuation likely a cyst or hemangioma, could | | be further evaluated with ultrasound or multiphase cross-sectional | | imaging if clinically indicated. | | | | 6. Status post cholecystectomy. | | | | | | | | Final Report Signed by: Idris Diaz Matthew | | Sign Date/Time: 08/29/2020 1:54 PM | + + + +---------+ + + | Performing | Address | City/State/Zipcode | Phone Number | | Organization | | | | + +---------+ + + | [facility] | | | | + +---------+ + + Hepatitis B Surface Ab, Quant (08/29/2020 10:32 AM PDT) + + + + + + | Component | Value | Ref Range | Performed | Pathologist | | | | | At | Signature | + + + + + + | HEP B | <3.1 (L)Comment: Status | Immunity>9.9 | [facility] | | | SURFACE | of Immunity | mIU/mL | LABORATORY | | | ANTIBODY | | | | | | | Anti-HBs Level | | | | | | | | | | | | | | | | | | | | | | | | Inconsiste | | | | | | nt with Immunity | | | | | | 0.0 | | | | | | - 9.9Consistent with | | | | | | Immunity | | | | | | | | | | | | >9.9Testing performed | | | | | | at [facility], [address], [facility] [address], [facility] | | | | | | [address] | | | | + + + + + + + + | Specimen | + + | | + + + + + + + | Performing | Address | City/State/Zipcode | Phone Number | | Organization | | | | + + + + + | [facility] | [address] | [place] [address] | [phone] | + + + + + D-Dimer (08/29/2020 10:32 AM PDT) + + + + + + | Component | Value | Ref Range | Performed | Pathologist | | | | | At | Signature | + + + + + + | D-DIMER | 2.50 (H)Comment: D Dimer | 0.19 - 0.50 | [facility] | | | | results less than 0.50 | mg/L FEU | LABORATORY | | | | mg/L FEU may rule out | | | | | | DVT and PE. However, | | | | | | alllaboratory results | | | | | | should be interpreted in | | | | | | the context of all | | | | | | availableclinical, | | | | | | radiologic and | | | | | | laboratory | | | | | | information.Testing | | | | | | performed at [facility] | | | | | | [facility];[place], [place] | | | | | | [address] | | | | + + + + + + + + | Specimen | + + | Blood | + + + + + + + | Performing | Address | City/State/Zipcode | Phone Number | | Organization | | | | + + + + + | [facility] | [address] | [place] [address] | [phone] | + + + + + Comprehensive Metabolic Panel (08/28/2020 9:37 AM PDT)Only the most recent of 2 results wi thin the time period is included. + + + + + + | Component | Value | Ref Range | Performed | Pathologist | | | | | At | Signature | + + + + + + | Na | 138 | 135 - 145 | [facility] | | | | | mmol/L | LABORATORY | | + + + + + + | K | 3.8 | 3.5 - 4.9 | [facility] | | | | | mmol/L | LABORATORY | | + + + + + + | Cl | 103 | 99 - 109 mmol/L | [facility] | | | | | | LABORATORY | | + + + + + + | CO2 | 30 | 23 - 32 mmol/L | [facility] | | | | | | LABORATORY | | + + + + + + | Anion Gap | 9 | 5 - 20 mmol/L | [facility] | | | | | | LABORATORY | | + + + + + + | Glucose | 149 (H) | 65 - 99 mg/dL | [facility] | | | | | | LABORATORY | | + + + + + + | BUN | 36 (H) | 8 - 25 mg/dL | [facility] | | | | | | LABORATORY | | + + + + + + | Creatinine | 2.64 (H) | 0.70 - 1.30 | [facility] | | | | | mg/dL | LABORATORY | | + + + + + + | BUN/Creatin | 14 | | [facility] | | | ine Ratio | | | LABORATORY | | + + + + + + | Calcium | 7.3 (L) | 8.5 - 10.5 | [facility] | | | | | mg/dL | LABORATORY | | + + + + + + | Protein, | 5.2 (L) | 6.3 - 8.2 g/dL | [facility] | | | Total | | | LABORATORY | | + + + + + + | Albumin | 3.3 | 3.3 - 4.8 g/dL | [facility] | | | | | | LABORATORY | | + + + + + + | Globulin | 1.9 | 1.3 - 4.9 g/dL | [facility] | | | | | | LABORATORY | | + + + + + + | A/G Ratio | 1.7 | 1.0 - 2.4 | [facility] | | | | | | LABORATORY | | + + + + + + | BILIRUBIN, | 0.5 | 0.1 - 1.5 mg/dL | [facility] | | | TOTAL | | | LABORATORY | | + + + + + + | ALK PHOS | 60 | 35 - 115 U/L | [facility] | | | | | | LABORATORY | | + + + + + + | AST | 15 | 10 - 45 U/L | [facility] | | | | | | LABORATORY | | + + + + + + | ALT | 12 | 10 - 65 U/L | [facility] | | | | | | LABORATORY | | + + + + + + | Estimated | 23 (L)Comment: GFR <60: | >60 | [facility] [...] | | | | | performed at [facility];[address] [facility];[place], [place] | | | | | | [address] | | | | + + + + + + + + | Specimen | + + | Blood | + + + + + + + | Performing | Address | City/State/Zipcode | Phone Number | | Organization | | | | + + + + + | [facility] | [address] | [place] [address] | [phone] | + + + + + XR Abd Supine and Upright w 1 Vw Chest (08/27/2020 1:31 PM PDT) + + | Specimen | + + | | + + + + + | Impressions | Performed At | + + + | 1. Similar appearance of the mixed interstitial and ground-glass | [facility] | | opacities of the right greater than left lungs and moderate right | | | pleural effusion. 2. Nonobstructive bowel gas pattern. 3. No | | | evidence of pneumoperitoneum. Final Report Signed by: | | | Idris Garcia Elizabeth Sign Date/Time: 08/27/2020 2:02 PM | | + + + + + + | Narrative | Performed At | + + + | PA CHEST AND SUPINE AND UPRIGHT ABDOMEN CLINICAL INFORMATION: | [facility] | | Abdominal pain. COMPARISON: US RENAL LIMITED (08/25/2020); CT | | | PELVIS WO CONTRAST (08/04/2016); XR CHEST AP PORTABLE (08/25/2020); | | | FINDINGS: Chest Findings: Similar appearance of mixed interstitial | | | and ground-glass opacities within the right greater than left lungs | | | and moderate right pleural effusion. No pneumothorax. Mediastinal | | | and cardiac contours appear unchanged. No acute osseous | | | abnormality. No intraperitoneal free air. Abdomen Findings: | | | Surgical clips are present within the right upper quadrant of the | | | abdomen, likely from prior cholecystectomy. A nonobstructive bowel | | | gas pattern is present. No evidence of pneumoperitoneum. Diffuse | | | atherosclerotic calcification of the abdominal aorta and iliac | | | arteries. A catheter projects over the bladder, likely within the | | | bladder. No acute osseous abnormality. Multilevel degenerative | | | changes of the lumbar spine. Left greater than right hip | | | osteoarthritis. | | + + + + + | Procedure Note | + + | Wiley, [id number] - 08/27/2020 2:05 PM PDT | | PA CHEST AND SUPINE AND UPRIGHT ABDOMEN | | | | CLINICAL INFORMATION: | | Abdominal pain. | | | | COMPARISON: | | US RENAL LIMITED (08/25/2020); CT PELVIS WO CONTRAST (08/04/2016); XR | | CHEST AP PORTABLE (08/25/2020); | | | | FINDINGS: | | Chest Findings: Similar appearance of mixed interstitial and | | ground-glass opacities within the right greater than left lungs and | | moderate right pleural effusion. No pneumothorax. Mediastinal and | | cardiac contours appear unchanged. No acute osseous abnormality. No | | intraperitoneal free air. | | | | Abdomen Findings: Surgical clips are present within the right upper | | quadrant of the abdomen, likely from prior cholecystectomy. A | | nonobstructive bowel gas pattern is present. No evidence of | | pneumoperitoneum. Diffuse atherosclerotic calcification of the | | abdominal aorta and iliac arteries. A catheter projects over the | | bladder, likely within the bladder. No acute osseous abnormality. | | Multilevel degenerative changes of the lumbar spine. Left greater than | | right hip osteoarthritis. | | | | IMPRESSION: | | 1. Similar appearance of the mixed interstitial and ground-glass | | opacities of the right greater than left lungs and moderate right | | pleural effusion. | | 2. Nonobstructive bowel gas pattern. | | 3. No evidence of pneumoperitoneum. | | | | | | | | | | Final Report Signed by: Idris Garcia Elizabeth | | Sign Date/Time: 08/27/2020 2:02 PM | + + + +---------+ + + | Performing | Address | City/State/Zipcode | Phone Number | | Organization | | | | + +---------+ + + | [facility] | | | | + +---------+ + + Red Blood Cells (PRBC) - Transfuse (08/26/2020 1:49 PM PDT)Only the most recent of 2 resul ts within the time period is included.Red Blood Cells (PRBC) - Crossmatch (08/26/2020 11:17 AM PDT)Only the most recent of 2 results within the time period is included. + + + + + + | Component | Value | Ref Range | Performed | Pathologist | | | | | At | Signature | + + + + + + | Product | RED CELL GROUP | | [facility] | | | Code | | | LABORATORY | | + + + + + + | Units | 1 | | [facility] | | | ordered | | | LABORATORY | | + + + + + + | BLOOD BANK | ORDER RECEIVED IN BLOOD | | [facility] | | | COMMENT | BANK. | | LABORATORY | | + + + + + + | BLOOD BANK | Testing performed at | | [facility] | | | COMMENT | [facility];[address] | LABORATORY | | | | [address];[place] [address] | | | | + + + + + + + + | Specimen | + + | | + + + + + + + | Performing | Address | City/State/Zipcode | Phone Number | | Organization | | | | + + + + + | [facility] | [address] | [place] [address] | [phone] | + + + + + Kathyaime INR (08/26/2020 5:20 AM PDT)Only the most recent of 2 results within the time santiago od is included. + + + + + + | Component | Value | Ref Range | Performed | Pathologist | | | | | At | Signature | + + + + + + | INR | 1.1Comment: REFERENCE | | [facility] | | | | RANGE:0.9 - 1.2 | | LABORATORY | | | | NON-ANTICOAGULATED2.0 | | | | | | - 3.0 ALL OTHER | | | | | | THERAPEUTIC | | | | | | INDICATIONS2.5 - 3.5 | | | | | | MECHANICAL HEART VALVES, | | | | | | RECURRENT OR SYSTEMIC | | | | | | EMBOLISMTesting | | | | | | performed at [facility];[address] | | | | [address];[place] | | | | | | [address] | | | | + + + + + + + + | Specimen | + + | Blood | + + + + + + + | Performing | Address | City/State/Zipcode | Phone Number | | Organization | | | | + + + + + | [facility] | [address] | [place] [address] | [phone] | + + + + + CBC with Differential (08/26/2020 5:20 AM PDT)Only the most recent of 2 results within the time period is included. + + + + + + | Component | Value | Ref Range | Performed | Pathologist | | | | | At | Signature | + + + + + + | WBC | 10.48 | 3.80 - 11.00 | [facility] | | | | | K/uL | LABORATORY | | + + + + + + | Red Blood | 3.00 (L) | 4.20 - 5.70 | [facility] | | | Cells | | M/uL | LABORATORY | | + + + + + + | Hemoglobin | 8.7 (L) | 13.2 - 17.0 | [facility] | | | | | g/dL | LABORATORY | | + + + + + + | Hematocrit | 27.3 (L) | 39.0 - 50.0 % | [facility] | | | | | | LABORATORY | | + + + + + + | MCV | 91.0 | 80.0 - 100.0 fl | [facility] | | | | | | LABORATORY | | + + + + + + | MCH | 29.0 | 27.0 - 34.0 pg | [facility] | | | | | | LABORATORY | | + + + + + + | MCHC | 31.9 (L) | 32.0 - 35.5 | [facility] | | | | | g/dL | LABORATORY | | + + + + + + | RDW-SD | 48.6 | 37 - 53 fl | [facility] | | | | | | LABORATORY | | + + + + + + | Platelet | 314 | 150 - 400 K/uL | [facility] | | | Count | | | LABORATORY | | + + + + + + | MPV | 10.8Comment: NO NORMAL | fl | [facility] | | | | RANGE ESTABLISHED | | LABORATORY | | + + + + + + | Diff Type | AUTOMATED | | [facility] | | | | | | LABORATORY | | + + + + + + | % nRBC | 0.0 | 0 /100WBC | [facility] | | | | | | LABORATORY | | + + + + + + | % | 79.10 | % | [facility] | | | Neutrophils | | | LABORATORY | | + + + + + + | IMMATURE | 0.40 | % | [facility] | | | GRANULOCYTE | | | LABORATORY | | + + + + + + | % | 9.20 | % | [facility] | | | Lymphocytes | | | LABORATORY | | + + + + + + | Monocyte % | 9.20 | % | [facility] | | | | | | LABORATORY | | + + + + + + | Eosinophils | 1.80 | % | [facility] | | | % | | | LABORATORY | | + + + + + + | Basophils % | 0.30 | % | [facility] | | | | | | LABORATORY | | + + + + + + | Neutrophils | 8.30 (H) | 1.90 - 7.40 | [facility] | | | , Absolute | | K/uL | LABORATORY | | + + + + + + | IMMATURE | 0.04Comment: NOTE NEW | 0.00 - 0.07 | [facility] | | | GRANS AB | REFERENCE RANGE | K/uL | LABORATORY | | + + + + + + | Absolute | 0.96 (L) | 1.00 - 3.90 | [facility] | | | Lymphocytes | | K/uL | LABORATORY | | + + + + + + | Absolute | 0.96 (H) | 0.00 - 0.80 | [facility] | | | Monocytes | | K/uL | LABORATORY | | + + + + + + | Eosinophils | 0.19 | 0.00 - 0.50 | [facility] | | | , Absolute | | K/uL | LABORATORY | | + + + + + + | Basophils, | 0.03Comment: Testing | 0.00 - 0.10 | [facility] | | | Absolute | performed at [facility];[address] | LABORATORY | | | | [facility];[place] | | | | | | [address] | | | | + + + + + + + + | Specimen | + + | Blood | + + + + + + + | Performing | Address | City/State/Zipcode | Phone Number | | Organization | | | | + + + + + | [facility] | [address] | [place] [address] | [phone] | + + + + + Magnesium (08/26/2020 5:20 AM PDT)Only the most recent of 2 results within the time period is included. + + + + + + | Component | Value | Ref Range | Performed | Pathologist | | | | | At | Signature | + + + + + + | Magnesium | 2.1Comment: Testing | 1.7 - 2.4 mg/dL | [facility] | | | | performed at [facility];[address] | | LABORATORY | | | | [address];[place], [place] | | | | | | [address] | | | | + + + + + + + + | Specimen | + + | Blood | + + + + + + + | Performing | Address | City/State/Zipcode | Phone Number | | Organization | | | | + + + + + | [facility] | [address] | [place] [address] | [phone] | + + + + + CK-MB (08/25/2020 7:44 PM PDT)Only the most recent of 4 results within the time period is included. + + + + + + | Component | Value | Ref Range | Performed | Pathologist | | | | | At | Signature | + + + + + + | CK-MB | 6.7 (H) | 0.5 - 3.6 ng/mL | [facility] | | | | | | LABORATORY | | + + + + + + | CK Index | UNABLE TO | | [facility] | | | | CALCULATEComment: | | LABORATORY | | | | Testing performed at | | | | | | [facility];[address];[place] [address] | | | | + + + + + + + + | Specimen | + + | Blood | + + + + + + + | Performing | Address | City/State/Zipcode | Phone Number | | Organization | | | | + + + + + | [facility] | [address] | [place] [address] | [phone] | + + + + + Type and Screen (08/25/2020 2:49 PM PDT) + + + + + + | Component | Value | Ref Range | Performed | Pathologist | | | | | At | Signature | + + + + + + | ABO Rh | B NEGATIVE | | [facility] | | | | | | LABORATORY | | + + + + + + | Antibody | NEGATIVE | | [facility] | | | Screen | | | LABORATORY | | + + + + + + | BB BAND | [id number] | | [facility] | | | | | | LABORATORY | | + + + + + + | UNIT # | [id number] | | [facility] | | | | | | LABORATORY | | + + + + + + | Product | LEUKODEPLETED PC | | [facility] | | | Code | | | LABORATORY | | + + + + + + | Unit | 00 | | [facility] | | | Division | | | LABORATORY | | + + + + + + | Unit Status | ISSUED,FINAL | | [facility] | | | | | | LABORATORY | | + + + + + + | Transfusion | OK TO TRANSFUSE | | [facility] | | | Status | | | LABORATORY | | + + + + + + | CROSSMATCH | COMPATIBLE | | [facility] | | | RESULT | | | LABORATORY | | + + + + + + | UNIT # | [id number] | | [facility] | | | | | | LABORATORY | | + + + + + + | Product | LEUKODEPLETED PC | | [facility] | | | Code | | | LABORATORY | | + + + + + + | Unit | 00 | | [facility] | | | Division | | | LABORATORY | | + + + + + + | Unit Status | ISSUED,FINAL | | [facility] | | | | | | LABORATORY | | + + + + + + | Transfusion | OK TO TRANSFUSE | | [facility] | | | Status | | | LABORATORY | | + + + + + + | CROSSMATCH | COMPATIBLETesting | | [facility] | | | RESULT | performed at [facility];[address] | | LABORATORY | | | | [address];[place] | | | | | | [address] | | | | + + + + + + + + | Specimen | + + | Blood | + + + + + + + | Performing | Address | City/State/Zipcode | Phone Number | | Organization | | | | + + + + + | [facility] | [address] | [place] [address] | [phone] | + + + + + Hepatitis C Ab (08/25/2020 2:48 PM PDT) + + + + + + | Component | Value | Ref Range | Performed | Pathologist | | | | | At | Signature | + + + + + + | HCV Ab | <0.1Comment: | 0.0 - 0.9 s/co | [facility] | | | | | ratio | LABORATORY | | | | Negative: | | | | | | < 0.8 | | | | | | | | | | | | Indeterminate: 0.8 | | | | | | - 0.9 | | | | | | | | | | | | Positive: > | | | | | | 0.9The CDC recommends | | | | | | that a positive HCV | | | | | | antibody resultbe | | | | | | followed up with a HCV | | | | | | Nucleic Acid | | | | | | Amplificationtest | | | | | | ([id number]).Testing | | | | | | performed at [facility], | | | | | | [address], [address], | | | | | | [facility] [address] | | | | + + + + + + + + | Specimen | + + | Blood | + + + + + + + | Performing | Address | City/State/Zipcode | Phone Number | | Organization | | | | + + + + + | [facility] | [address] | [place] [address] | [phone] | + + + + + Hepatitis B Core Ab, Total (08/25/2020 2:48 PM PDT) + + + + + + | Component | Value | Ref Range | Performed | Pathologist | | | | | At | Signature | + + + + + + | Hepatitis B | NegativeComment: Testing | Negative | [facility] | | | Core Ab | performed at [facility], | | LABORATORY | | | Total | [address], [address], | | | | | | [facility] [address] | | | | + + + + + + + + | Specimen | + + | | + + + + + + + | Performing | Address | City/State/Zipcode | Phone Number | | Organization | | | | + + + + + | [facility] | [address] | [place] [address] | [phone] | + + + + + Hepatitis B Surface Ag (08/25/2020 2:48 PM PDT) + + + + + + | Component | Value | Ref Range | Performed | Pathologist | | | | | At | Signature | + + + + + + | Hepatitis B | NegativeComment: Testing | Negative | [facility] | | | Surface Ag | performed at [facility], | | LABORATORY | | | | [address], [address], | | | | | | [facility] [address] | | | | + + + + + + + + | Specimen | + + | Blood | + + + + + + + | Performing | Address | City/State/Zipcode | Phone Number | | Organization | | | | + + + + + | [facility] | [address] | [place] [address] | [phone] | + + + + + ECHO Complete w Contrast (08/25/2020 11:52 AM PDT) + +--------+ + + + | Component | Value | Ref Range | Performed | Pathologist | | | | | At | Signature | + +--------+ + + + | LVEF-TTE | 35 | % | [facility] | | | TRANSTHORAC | | | | | | IC ECHO | | | | | + +--------+ + + + | Inferior | 2.04 | cm | [facility] | | | Vena Cava | | | | | | Diameter at | | | | | | Expiration | | | | | + +--------+ + + + | RA PRESSURE | 3 | mmHg | [facility] | | + +--------+ + + + | LVIDd | 5.87 | cm | [facility] | | + +--------+ + + + | FS | 31 | % | [facility] | | + +--------+ + + + | LA volume | 55.78 | mL | [facility] | | + +--------+ + + + | AV mean | 4.08 | mmHg | [facility] | | | gradient | | | | | + +--------+ + + + | Aortic | 3 | cm2 | [facility] | | | Valve Area | | | | | | by | | | | | | Continuity | | | | | | VTI | | | | | + +--------+ + + + | MV mean | 3.25 | mmHg | [facility] | | | gradient | | | | | + +--------+ + + + | MV Area by | 2 | cm2 | [facility] | | | Continuity | | | | | | Equation | | | | | + +--------+ + + + | PV peak | 3.82 | mmHg | [facility] | | | gradient | | | | | + +--------+ + + + | LVOT | 2.5 | cm | [facility] | | | diameter | | | | | + +--------+ + + + | LVOT peak | 83.25 | cm/s | [facility] | | | ray | | | | | + +--------+ + + + | LVOT peak | 19.36 | cm | [facility] | | | VTI | | | | | + +--------+ + + + | AV peak ray | 141.53 | cm/s | [facility] | | + +--------+ + + + | AV VTI | 31.63 | cm | [facility] | | + +--------+ + + + | MR max ray | 438.81 | cm/s | [facility] | | + +--------+ + + + | AV peak | 8.01 | mmHg | [facility] | | | gradient | | | | | + +--------+ + + + | MV peak | 10.41 | mmHg | [facility] | | | gradient | | | | | + +--------+ + + + | TV peak | 0.64 | mmHg | [facility] | | | gradient | | | | | + +--------+ + + + | PV mean | 2.13 | mmHg | [facility] | | | gradient | | | | | + +--------+ + + + | MV VTI | 136.09 | cm | [facility] | | + +--------+ + + + | LA Volume | 28 | mL/m2 | [facility] | | | Index | | | | | + +--------+ + + + | AV LVOT | 2.77 | mmHg | [facility] | | | Peak | | | | | | Gradient | | | | | + +--------+ + + + | AV LVOT | 1.37 | mmHg | [facility] | | | Mean | | | | | | Gradient | | | | | + +--------+ + + + | PI Peak | 97.69 | cm/s | [facility] | | | Velocity | | | | | + +--------+ + + + | LV | 9.74 | cm | [facility] | | | Diastolic | | | | | | Length 4C | | | | | + +--------+ + + + | RV | 4.03 | cm | [facility] | | | Diastolic | | | | | | Basal | | | | | | Diameter | | | | | + +--------+ + + + | LVOT Mean | 53.84 | cm/s | [facility] | | | Velocity | | | | | + +--------+ + + + | MV E' | 6 | cm/s | [facility] | | | Lateral | | | | | | Velocity | | | | | + +--------+ + + + | MV E' | 5.19 | cm/s | [facility] | | | Septal | | | | | | Velocity | | | | | + +--------+ + + + | MV | 227.55 | msec | [facility] | | | Deceleratio | | | | | | n Time | | | | | + +--------+ + + + | MV E/A | 1.75 | | [facility] | | | Ratio | | | | | + +--------+ + + + | MV Mean | 80.2 | cm/s | [facility] | | | Velocity | | | | | + +--------+ + + + | MV Peak | 85.27 | cm/s | [facility] | | | A-Wave | | | | | + +--------+ + + + | MV Peak | 149.18 | cm/s | [facility] | | | E-Wave | | | | | + +--------+ + + + | TV | 179.86 | msec | [facility] | | | Deceleratio | | | | | | n Time | | | | | + +--------+ + + + | TV Peak | 45.56 | cm/s | [facility] | | | A-Wave | | | | | + +--------+ + + + | TV Peak | 40.07 | cm/s | [facility] | | | E-Wave | | | | | + +--------+ + + + | PV Mean | 68.57 | cm/s | [facility] | | | Velocity | | | | | + +--------+ + + + | AV Mean | 94.52 | cm/s | [facility] | | | Velocity | | | | | + +--------+ + + + | RA Area | 17.9 | cm2 | [facility] | | + +--------+ + + + | LA/Aorta | 1.3 | | [facility] | | | Ratio | | | | | + +--------+ + + + | LA Area | 18.85 | cm2 | [facility] | | + +--------+ + + + | LA Systolic | 33.08 | mmHg | [facility] | | | Pressure | | | | | + +--------+ + + + | MV E/E | 28.74 | | [facility] | | | SEPTAL | | | | | + +--------+ + + + | MV E/E | 24.86 | | [facility] | | | LATERAL | | | | | + +--------+ + + + | LA Major | 0.3163 | cm | [facility] | | + +--------+ + + + | Cardiac | 6.17 | l/min | [facility] | | | Output | | | | | + +--------+ + + + | Cardiac | 3.1 | l/min/m2 | [facility] | | | Index | | | | | + +--------+ + + + | Vitals | 65 | | [facility] | | | Heart Rate | | | | | | Rest | | | | | + +--------+ + + + | Vitals BP | 116 | | [facility] | | | Systolic | | | | | + +--------+ + + + | Vitals BP | 57 | | [facility] | | | Diastolic | | | | | + +--------+ + + + | Vitals | 173.0 | | [facility] | | | Height | | | | | + +--------+ + + + | Vitals | 84.80 | | [facility] | | | Weight | | | | | + +--------+ + + + | Aortic Root | 3.63 | cm | [facility] | | | Diameter | | | | | + +--------+ + + + | IVS | 1.21 | cm | [facility] | | | Diastolic | | | | | | Thickness | | | | | | MM | | | | | + +--------+ + + + | LVPW | 1.08 | cm | [facility] | | | Diastolic | | | | | | Thickness | | | | | | MM | | | | | + +--------+ + + + | IVS | 1.39 | cm | [facility] | | | Systolic | | | | | | Thickness | | | | | | MM | | | | | + +--------+ + + + | LV Systolic | 4.03 | cm | [facility] | | | Diameter | | | | | | MM | | | | | + +--------+ + + + | LVPW | 1.52 | cm | [facility] | | | Systolic | | | | | | Thickness | | | | | | MM | | | | | + +--------+ + + + | AV Cusp | 1.51 | cm | [facility] | | | Seperation | | | | | | MM | | | | | + +--------+ + + + | LA Systolic | 4.72 | cm | [facility] | | | Diameter | | | | | | MM | | | | | + +--------+ + + + + + | Specimen | + + | | + + + + + | Narrative | Performed At | + + + | Technically | [facility] | | difficult study with poor acoustic windows.Left ventricle appears | | | mildly dilated with moderately impaired systolic function EF 35 to | | | 40%.Akinetic anterior, anteroseptal, septal, inferoseptal, and apical | | | segments.Right ventricle appears moderately dilated with impaired | | | systolic function.No pericardial effusion. | | |function. | | |No pericardial effusion. | | + + + + +---------+ + + | Performing | Address | City/State/Zipcode | Phone Number | | Organization | | | | + +---------+ + + | [facility] | | | | + +---------+ + + Coronavirus (COVID-19) NAAT (08/25/2020 8:51 AM PDT) + + + + + + | Component | Value | Ref Range | Performed | Pathologist | | | | | At | Signature | + + + + + + | SARS-CoV-2, | NEGATIVEComment: This | NEG | [facility] | | | NAAT | test was developed and | | LABORATORY | | | (COVID-19) | its performance | | | | | | characteristics | | | | | | determined byCepheid. It | | | | | | has not been cleared or | | | | | | approved by the [place] FDA. | | | | | | This test has | | | | | | beenauthorized by FDA | | | | | | under an Emergency Use | | | | | | Authorization (EUA). | | | | | | Clinicians shouldbe | | | | | | advised to consider a | | | | | | patients signs, | | | | | | symptoms, history, and | | | | | | results ofother | | | | | | diagnostic tests when | | | | | | interpreting | | | | | | results.Testing | | | | | | performed at [facility];[address] | | | | | [address];[place], [place] | | | | | | [address] | | | | + + + + + + + + | Specimen | + + | Tissue - Entire | | nasopharynx (body | | structure) | + + + + + + + | Performing | Address | City/State/Zipcode | Phone Number | | Organization | | | | + + + + + | [facility] | [address] | [place] [address] | [phone] | + + + + + Lipid Panel (08/25/2020 7:48 AM PDT) + + + + + + | Component | Value | Ref Range | Performed | Pathologist | | | | | At | Signature | + + + + + + | Cholesterol | 119 | <200 mg/dL | [facility] | | | | | | LABORATORY | | + + + + + + | Triglycerid | 67 | <150 mg/dL | [facility] | | | es | | | LABORATORY | | + + + + + + | HDL | 42 | >40 mg/dL | [facility] | | | | | | LABORATORY | | + + + + + + | LDL, | 64Comment: Testing | <100 mg/dL | [facility] | | | Calculated | performed at [facility], [address] | | LABORATORY | | | | [address], | | | | | | [place] [address] | | | | + + + + + + + + | Specimen | + + | Blood | + + + + + + + | Performing | Address | City/State/Zipcode | Phone Number | | Organization | | | | + + + + + | [facility] | [address] | [place] [address] | [phone] | + + + + + Hemoglobin A1C (08/25/2020 7:48 AM PDT) + + + + + + | Component | Value | Ref Range | Performed | Pathologist | | | | | At | Signature | + + + + + + | Hemoglobin | 7.1 (H)Comment: | 4.8 - 5.6 % | [facility] | | | A1c | Prediabetes: 5.7 - | | LABORATORY | | | | 6.4 Diabetes: | | | | | | >6.4 | | | | | | Glycemic control for | | | | | | adults with diabetes: | | | | | | <7.0Testing performed at | | | | | | [facility], [address], | | | | | | [address] | | | | | | [address] | | | | + + + + + + + + | Specimen | + + | Blood | + + + + + + + | Performing | Address | City/State/Zipcode | Phone Number | | Organization | | | | + + + + + | [facility] | [address] | [place] [address] | [phone] | + + + + + US Renal Limited (08/25/2020 7:30 AM PDT) + + | Specimen | + + | | + + + + + | Impressions | Performed At | + + + | 1. Cortical thinning and increased echogenicity suggesting medical | [facility] | | renal disease. 2. Multiple bilateral renal cysts. Final | | | Report Signed by: Idris Valdez, Thaddeus Sign Date/Time: 08/25/2020 | | | 7:50 AM | | + + + + + + | Narrative | Performed At | + + + | ULTRASOUND KIDNEYS AND BLADDER CLINICAL INFORMATION: End | [facility] | | stage renal disease COMPARISON: VAS HEMODIALYSIS GRAFT FISTULA | | | (10/20/2019); PROCEDURE: Evaluation of the kidneys and urinary | | | bladder. FINDINGS: Right kidney: 12.8 cm. Multiple renal cysts on | | | the right. The cortical echogenicity is markedly increased there | | | is cortical thinning suggesting chronic kidney disease. The largest | | | cyst measures 2.2 x 1.2 x 1.6 cm. Left kidney: 12.5 cm. | | | Increased echogenicity of the renal cortex with cortical thinning | | | suggesting medical renal disease. Multiple cysts are seen the | | | largest measures 2.6 x 1.7 x 1.8 cm. Bladder: Decompressed by | | | Moss catheter. Incidental note is made of right pleural effusion. | | | | | + + + + + | Procedure Note | + + | [facility], [id number] - 08/25/2020 7:54 AM PDT | | ULTRASOUND KIDNEYS AND BLADDER | | | | CLINICAL INFORMATION: | | End stage renal disease | | | | COMPARISON: | | VAS HEMODIALYSIS GRAFT FISTULA (10/20/2019); | | | | PROCEDURE: | | Evaluation of the kidneys and urinary bladder. | | | | FINDINGS: | | Right kidney: 12.8 cm. Multiple renal cysts on the right. The cortical | | echogenicity is markedly increased there is cortical thinning | | suggesting chronic kidney disease. The largest cyst measures 2.2 x 1.2 | | x 1.6 cm. | | | | Left kidney: 12.5 cm. Increased echogenicity of the renal cortex with | | cortical thinning suggesting medical renal disease. Multiple cysts are | | seen the largest measures 2.6 x 1.7 x 1.8 cm. | | | | Bladder: Decompressed by Moss catheter. | | | | Incidental note is made of right pleural effusion. | | | | IMPRESSION: | | 1. Cortical thinning and increased echogenicity suggesting medical | | renal disease. | | 2. Multiple bilateral renal cysts. | | | | | | | | | | Final Report Signed by: Idris Valdez Richard | | Sign Date/Time: 08/25/2020 7:50 AM | + + + +---------+ + + | Performing | Address | City/State/Zipcode | Phone Number | | Organization | | | | + +---------+ + + | [facility] | | | | + +---------+ + + XR Chest AP Portable (08/24/2020 11:25 PM PDT) + + | Specimen | + + | | + + + + + | Impressions | Performed At | + + + | Mixed interstitial and ground-glass opacities seen bilaterally, | [facility] | | right greater than left, with a right-sided effusion. This may | | | reflect pulmonary edema, though atypical or viral infection could | | | appear similar. Final Report Signed by: Idris Gutierrez, | | | Nelson Sign Date/Time: 08/24/2020 11:28 PM | | + + + + + + | Narrative | Performed At | + + + | CHEST PORTABLE ONE VIEW CLINICAL INFORMATION: Shortness of | [facility] | | breath. COMPARISON: ECHO OUTSIDE INTERPRETATION (03/26/2016); XR | | | CHEST PA AND LATERAL (06/24/2013); XR CHEST AP PORTABLE (11/23/2012); | | | FINDINGS: Lung volumes are adequate. Bilateral mixed | | | interstitial and ground-glass opacities, right greater than left. | | | Modest right pleural effusion.. No pneumothorax. | | | Cardiomediastinal silhouette unremarkable. Pulmonary vascularity | | | within normal limits. No acute osseous abnormality. | | + + + + + | Procedure Note | + + | [place], [id number] - 08/24/2020 11:32 PM PDT | | CHEST PORTABLE ONE VIEW | | | | CLINICAL INFORMATION: | | Shortness of breath. | | | | COMPARISON: | | ECHO OUTSIDE INTERPRETATION (03/26/2016); XR CHEST PA AND LATERAL | | (06/24/2013); XR CHEST AP PORTABLE (11/23/2012); | | | | FINDINGS: | | Lung volumes are adequate. Bilateral mixed interstitial and | | ground-glass opacities, right greater than left. Modest right pleural | | effusion.. No pneumothorax. | | | | Cardiomediastinal silhouette unremarkable. Pulmonary vascularity | | within normal limits. No acute osseous abnormality. | | | | IMPRESSION: | | Mixed interstitial and ground-glass opacities seen bilaterally, right | | greater than left, with a right-sided effusion. This may reflect | | pulmonary edema, though atypical or viral infection could appear | | similar. | | | | | | | | | | Final Report Signed by: Idris Gutierrez James | | Sign Date/Time: 08/24/2020 11:28 PM | + + + +---------+ + + | Performing | Address | City/State/Zipcode | Phone Number | | Organization | | | | + +---------+ + + | [facility] | | | | + +---------+ + + Phosphorus (08/24/2020 11:00 PM PDT) + + + + + + | Component | Value | Ref Range | Performed | Pathologist | | | | | At | Signature | + + + + + + | Phosphorus | 7.4 (H)Comment: Testing | 2.3 - 4.8 mg/dL | [facility] | | | | performed at [facility];[address] | | LABORATORY | | | | [address];[place] | | | | | | [address] | | | | + + + + + + + + | Specimen | + + | Blood | + + + + + + + | Performing | Address | City/State/Zipcode | Phone Number | | Organization | | | | + + + + + | [facility] | [address] | [place] [address] | [phone] | + + + + + B Type Natriuretic Peptide (08/24/2020 11:00 PM PDT) + + + + + + | Component | Value | Ref Range | Performed | Pathologist | | | | | At | Signature | + + + + + + | BNP | 2,431.10 (H)Comment: | 0 - 100 pg/mL | [facility] | | | | Testing performed at | | LABORATORY | | | | [place];[address] [facility] | | | | | | [address];[place] [address] | | | | + + + + + + + + | Specimen | + + | Blood | + + + + + + + | Performing | Address | City/State/Zipcode | Phone Number | | Organization | | | | + + + + + | [facility] | [address] | [place] [address] | [phone] | + + + + + CBC with Manual Differential (08/01/2020) [...] +--------+ +---------+--------+ | MEDICARE | MEDICA | [id number] | 07/01/20 | [phone] | | Medica | | | RE | | 05-Pre | 5 | | re | | | PART A | | sent | | | | | | AND B | | | | | | + +--------+ +--------+ +---------+--------+ | [employer] | MODA | [id number] | 07/04/20 | [phone] | | Medica | | MEDICAID HMO | HEALTH | | 19-Pre | 1 | | id | | | MDCD | | sent | | | | | | [place]MO [place] | | | | | | + +--------+ +--------+ +---------+--------+ | [employer] | MOD[employer] | [id number] | | [phone] | | Medica | | MEDICAID HMO [...] | + +--------+ +--------+ + + | Porfirio Zavala | Person | Self | [birth year] | [address] | | [place] | al/Fam | | 1940 | [phone] | [place] | | | chula | | | 1 (Home) | [address] | + +--------+ +--------+ + + | Porfirio Zavala | Person | Self | [birth year] | [address] | | [place] | al/Fam | | 1940 | [phone] | [place], [place] | | | [place] | | | 1 (Home) | [address] | + +--------+ +--------+ + + Advance Directives + + + + + | Type | Date Recorded | Patient | Explanation | | | | Photo Specialist | | + + + + + | Power of | | | | | Inorganic Chemistry Teacher | | | | + + + + + | Advance | 09/01/2019 3:29 | | | | Directive | PM | | | + + + + + + + + + + | Code Status | Date | Date | Comments | | | Activated | Inactivated | | + + + + + | Full Code | 08/25/2020 | 09/01/2020 | | | | 4:48 AM | 12:27 PM | | + + + + + + + + +---+ | | | | | + + + +---+ | Full Code | 09/10/2019 | 09/10/2019 | | | | 2:36 PM | 6:34 PM | | + + + +---+ + + + +---+ | | | | | + + + +---+ | Full Code | 08/04/2016 | 08/05/2016 | | | | 2:45 AM | 3:29 PM | | + + + +---+
--- OUTSIDE RECORDS SUMMARY | ~2020-09-11 | XMS | Encounter Summary ---
Demographics + + + | Address | [address] | | | [place] [address] | + + + | Home Phone [...] Team Providers + +------+ + | Care Boatswains Mate Name | Role | Phone | + +------+ + | Mehrdad Bergman | PCP | | + +------+ + Encounter Details +--------+ + + + + | Date | Type | Department | Care Team | Description | +--------+ + + + + | 02/16/ | Imaging | [facility] | Provider, | | | 2019 | Exam | [facility] | MD [address] | | | | | IMAGING [address] | [address] | | | | | [address] [place] | [place] [address] | | | | | [place] [address] | | | | | | [phone] | | | +--------+ + + + [...] | | | | | | [place] [address] | | | | | | [phone] | | | | | | | [...] | | | Visit | | [address] [place], [place] | | | | | | [address] | | | | | | | [...]
--- OUTSIDE RECORDS SUMMARY | ~2020-09-11 | XMS | Encounter Summary ---
Demographics + + + | Address | [address] | | | [place] [address] | + + + | Home Phone [...] Providers + +------+ + | Care Staff Nurse Name | Role | Phone | + +------+ + | Rahul Silva MD | PCP | | + +------+ + Encounter Details +--------+ + + + + | Date | Type | Department | Care Team | Description | +--------+ + + + + | 03/01/ | Orders Only | [facility] | Conversion | | | 2019 | | NEPHROLOGY [place] | Transaction, | | | | | [address] | Provider Unknown | | | | | [address] | | | | | | [address] | (Fax) | | | | | [phone] | | | +--------+ + + + [...] | | | | | | [place] [address] | | | | | | [phone] | | | | | | | [...] | | | Visit | | [address] [place], [place] | | | | | | [address] | | | | | | | | +--------+ + + + + documented as of this encounter Procedures + +--------+ + + + | Procedure Name | Priori | Date/Time | Associated Diagnosis | Comments | | | ty | | | | + +--------+ + + + | EXTERNAL LAB: [facility] | Routin | 03/01/2019 | | Results [...] - 1.030 | EXTERNAL | | | [place], | | | LAB | | | [...] | | | LAB | | | [place] | | | | | + [...]
--- OUTSIDE RECORDS SUMMARY | ~2020-09-11 | XMS | Encounter Summary ---
Demographics + + + | Address | [address] | | | [place] [address] | + + + | Home Phone [...] Providers + +------+ + | Care Public Transit Specialist Name | Role | Phone | [...] [address] | | | | | [place], [place] | [place], [place] | | | | | [address] | [address] | | | | | [phone] | [phone] | | | | | | | [...] | | | | | | [place] [address] | | | | | | [phone] | | | | | | | [...] | | | Visit | | [address] [place], [place] | | | | | | [address] | | | | | | | [...]
--- OUTSIDE RECORDS SUMMARY | ~2020-09-11 | XMS | Encounter Summary ---
Demographics + + + | Address | [address] | | | [place] [address] | + + + | Home Phone [...] Providers + +------+ + | Care Microsoft Dynamics Developer Name | Role | Phone | [...] 2015 | | CONVERSION [address] | [address] | | | | | [address] | [address] | | | | | [place], [place] | [place] [address] | | | | | [address] | [phone] | | | | | [phone] | | | +--------+ + + + [...] | | | | | | [place] [address] | | | | | | [phone] | | | | | | | [...] [place] | | | | | | [address] | | | | | | | [...] pressures of 5-10mmHg. MEASUREMENTS | | | Caustic Plant Worker: Authenticated by: VICTORIANO BIRMINGHAM MD Report | | | Date/Time: 03-27-2016 13:39:46 | | + + + + + | Procedure Note | + + | Meir Jama Conversion - 07/22/2019 7:56 PM PDT Patient Name: Demetra Andujar of | | : 1940 Performing Physician: VICTORIANO BIRMINGHAM | | MD INDICATIONS H | [...] venous pressures of 5-10mmHg. | | MEASUREMENTS Caustic Plant Worker: DHAuthenticated by: VICTORIANO Ho | | Date/Time: 03-27-2016 [...] | |MEASUREMENTS | | | | | |Caustic Plant Worker: MARLENA | |Authenticated by: VICTORIANO BIRMINGHAM MD | [...]
--- OUTSIDE RECORDS SUMMARY | ~2020-09-11 | XMS | Encounter Summary ---
Demographics + + + | Address | [address] | | | [place] [address] | + + + | Home Phone [...] Team Providers + +------+ + | Care Usability Engineer Name | Role | Phone | [...] + + | 12/07/ | Telephone | [facility] | Farrukh Acuna MD | Other (Blood | | 2020 | | NEPHROLOGY [place] | [address] | pressure concern. ) | | | | [address] | [address] [place], [place] | | | | | [address] [place], [place] | [address] | | | | | [address] | | | | | | [phone] | | | +--------+ + + + [...] Miscellaneous Notes Telephone Encounter - Trinidad Simon [place] [employer] Repairer - 12/07/2019 5:29 PM PSTPatie nts daughter [...] | | | | | | [place] [address] | | | | | | [phone] | | | | | | | [...] [place] | | | | | | [address] | | | | | | | | +--------+ + + + + documented as of this encounter Visit Diagnoses Not on filedocumented in this encounter"
--- OUTSIDE RECORDS SUMMARY | ~2020-09-11 | XMS | Encounter Summary ---
Demographics + + + | Address | [address] | | | [place] [address] | + + + | Home Phone [...] Providers + +------+ + | Care Document Management Analyst Name | Role | Phone | + +------+ + | Rahul Silva MD | PCP | | + +------+ + Encounter Details +--------+ + + + + | Date | Type | Department | Care Team | Description | +--------+ + + + + | 08/31/ | Orders Only | [facility] | Farrukh Acuna MD | | | 2013 | | NEPHROLOGY [facility] | [address] | | | | | [address] | [address] [place], [place] | | | | | [address] [place] | [address] | | | | | [address] | | | | | | [phone] | | | +--------+ + + + [...] | 2019 | Visit | | [facility] [address] | | | | | | [address] [place], | | | | | | [place] [address] | | | | | | [phone] | | | | | | | [...] [place] | | | | | | [address] | | | | | | | [...] + +---------+ + + External Lab: [facility] (08/31/2014 12:00 AM PDT) + + + [...]
--- OUTSIDE RECORDS SUMMARY | ~2020-09-11 | XMS | Encounter Summary ---
Demographics + + + | Address | [address] | | | [place] [address] | + + + | Home Phone [...] Team Providers + +------+ + | Care Cdl B Driver Name | Role | Phone | + +------+ + | Rahul Silva MD | PCP | | + +------+ + Encounter Details +--------+---------+ + + + | Date | Type | Department | Care Team | Description | +--------+---------+ + + + | 01/10/ | Office | [facility] | Farrukh Acuna MD | CKD (chronic kidney | | 2020 | Visit | NEPHROLOGY [place] | [address] | disease) stage 5, | | | | [address] | [address] [place], [place] | GFR less than 15 | | | | [address] | [address] | ml/min (HCC) | | | | [place], [place] | | (Primary Dx); Anemia | | | | [address] | | of chronic kidney | | | | [phone] | | failure, stage 5 | | [...] 10/2016 with severe pneumonia, severe ZEKE; needed HEMATOLOGY ONCOLOGY CONSULTANT for ~5 weeks b efore renal function recovery mid 12/2016. He was admitted to [facility] for 3 nights in July 2016 [...] 10/2016 with severe pneumonia, severe ZEKE; needed HEMATOLOGY ONCOLOGY CONSULTANT for ~5 weeks b efore renal [...] Also: I see no need for acute HEMATOLOGY ONCOLOGY CONSULTANT. I see no need to send [...] | | 2019 | Visit | | FOOTWEAR STITCHER [address] | | | | | | [address], | | | | | | [place] [address] | | | | | | [phone] | | | | | | | [...] [place] | | | | | | [id number] | | | | | | | [...] of chronic kidney failure, stage 5 ([facility]) | + + | Edema of lower [...]
--- OUTSIDE RECORDS SUMMARY | ~2020-09-11 | XMS | Encounter Summary ---
Demographics + + + | Address | [address] | | | [place] [address] | + + + | Home Phone [...] Providers + +------+ + | Care Electronic Security Specialist Name | Role | Phone | [...] [address] | | | | | [place], [place] | [place], [place] | | | | | [address] | [address] | | | | | [phone] | [phone] | | | | | | | [...] | | | | | | [place] [address] | | | | | | [phone] | | | | | | | [...] | | | Visit | | [address] [place], [place] | | | | | | [address] | | | | | | | [...]
--- OUTSIDE RECORDS SUMMARY | ~2020-09-11 | XMS | Encounter Summary ---
Demographics + + + | Address | [address] | | | [place] [address] | + + + | Home Phone [...] Team Providers + +------+ + | Care Cane Flume Watcher Name | Role | Phone | + +------+ + PCP | Unavailable | + +------+ + Encounter Details +--------+ + + + + | Date | Type | Department | Care Team | Description | +--------+ + + + + | 08/02/ | [facility] | [facility] | Nelson Lutz MD | | | 1991 | Encounter | MED CTR GENERIC OP | [address], [place] | | | | | CONV DEPT [address] | [address] | | | | | [place], | [address] | | | | | [place] [address] | | | | | | [phone] | | | +--------+ + + + [...] | | 2019 | Visit | | TRANSPLANT IMMUNOLOGIST [address] | | | | | | [address], | | | | | | [place] [address] | | | | | | [phone] | | | | | | | [...]
--- OUTSIDE RECORDS SUMMARY | ~2020-09-11 | XMS | Encounter Summary ---
Demographics + + + | Address | [address] | | | [place] [address] | + + + | Home Phone [...] + + | 04/06/ | Telephone | [facility] | Farrukh Acuna MD | Other (IV fereme | | 2020 | | NEPHROLOGY [place] | [address] | and maria t | | | | [address] | [address] [place], [place] | question) | | | | [address] [place], [place] | [id number] | | | | | [address] | | | | | | [phone] | | | +--------+ + + + [...] Miscellaneous Notes Telephone Encounter - Trinidad Simon, Living Advisor - 04/06/2020 3:14 PM PDTSt[address] A IV [...] | | 2019 | Visit | | CHECK WRITING MACHINE OPERATOR [address] | | | | | | [address], | | | | | | [place] [address] | | | | | | [phone] | | | | | | | [...] [place] | | | | | | [id number] | | | | | | | | +--------+ + + + + documented as of this encounter Visit Diagnoses Not on filedocumented in this encounter"
--- OUTSIDE RECORDS SUMMARY | ~2020-09-11 | XMS | Encounter Summary ---
Demographics + + + | Address | [address] | | | [place] [address] | + + + | Home Phone [...] Providers + +------+ + | Care Supervisor Correspondence Section Name | Role | Phone | [...] + + | 09/01/ | Telephone | [facility] | Farrukh Acuna MD | Other | | 2019 | | NEPRHOLOGY [place] | [address] | | | | | [address] | [address] [place], [place] | | | | | [address] [place], [place] | [address] | | | | | [address] | | | | | | [phone] | | | +--------+ + + + [...] Miscellaneous Notes Telephone Encounter - Trinidad Simon Coil Tier - 09/02/2019 9:46 AM Henrry Acuna if the patients provider would like to discuss lab results they can call his cell p lexie at any time. Called to relay message to krys but was unable to reach her I left thomas dick with information and clinic name and number for her to call back with any questions.Elect ronically signed by Trinidad Simon Coil Tier at 09/02/2019 9:48 AM Chandrika e Encounter - Laureen Gill V - 09/01/2019 1:22 PM PDTProvider: [place]/Surgery Concerns patient and daughter called wanting to ask Armand if he can call him to discuss lab result a nd also concerns of the surgery due to his 2 blood clots on his arms. Surgery is on 09/10/19 . Please call them back at [phone]. Detailed message may be left on phone: Yes Last OV: 07/26/19 Next OV: 10/04/19 If this is a symptom based call and you were unable to immediately transfer the call to [facility], was caller made aware that if at any timeshefeels it is an emergency they shoul d call 911 or go to the nearest emergency room? No Is foreign language interpreter needed: no documented in this enc ounter Plan of Treatment +--------+ + + + + | Date | Type | Specialty | Care Team | Description | +--------+ + + + + | 09/19/ | Office | Cardiology | OdonnellMarch, | | | 2019 | Visit | | BLENDING TANK TENDER [address] | | | | | | [address], | | | | | | [place] [address] | | | | | | [phone] | | | | | | | [...] [place] | | | | | | [address] | | | | | | | | +--------+ + + + + documented as of this encounter Visit Diagnoses Not on filedocumented in this encounter"
--- OUTSIDE RECORDS SUMMARY | ~2020-09-11 | XMS | Encounter Summary ---
Demographics + + + | Address | [address] | | | [place] [address] | + + + | Home Phone [...] Providers + +------+ + | Care Machine Clothing Worker Name | Role | Phone | [...] | Transaction, | | | | | [place], [place] | Provider Unknown | | | | | [address] | [phone] | | | | | [phone] | | | +--------+ + + + [...] | | | | | | [place] [address] | | | | | | [phone] | | | | | | | [...] | | | Visit | | [address] [place], [place] | | | | | | [address] | | | | | | | [...]
--- OUTSIDE RECORDS SUMMARY | ~2020-09-11 | XMS | Encounter Summary ---
Demographics + + + | Address | [address] | | | [place] [address] | + + + | Home Phone [...] Providers + +------+ + | Care Public Relations Specialist Name | Role | Phone | + +------+ + | Rahul Silva MD | PCP | | + +------+ + Encounter Details +--------+ + + + + | Date | Type | Department | Care Team | Description | +--------+ + + + + | 08/19/ | Orders Only | [facility] | Conversion | | | 2017 | | NEPHROLOGY CONNIE | Transaction, | | | | | [address] | Provider Unknown | | | | | [address] [place] [address] | | | | | | [address] | (Fax) | | | | | [phone] | | | +--------+ + + + [...] | | | | | | [place] [address] | | | | | | [phone] | | | | | | | [...] | | | Visit | | [address] [place], [place] | | | | | | [address] | | | | | | | [...] | | | LAB | | | Romanian | | | | | + + [...]
--- OUTSIDE RECORDS SUMMARY | ~2020-09-11 | XMS | Encounter Summary ---
Demographics + + + | Address | [address] | | | [place] [address] | + + + | Home Phone [...] Team Providers + +------+ + | Care Handtools Repairer Name | Role | Phone | [...] | | | [address] | [place] [address] | | | | | [place] [address] | | | | | | [phone] | | | +--------+ + + + [...] | | 2019 | Visit | | DIESEL MAINTENANCE ELECTRICIAN [address] | | | | | | [address], | | | | | | [place] [address] | | | | | | [phone] | | | | | | | [...]
--- OUTSIDE RECORDS SUMMARY | ~2020-09-11 | XMS | Encounter Summary ---
Demographics + + + | Address | [address] | | | [place] [address] | + + + | Home Phone [...] Team Providers + +------+ + | Care Reservoir Engineering Advisor Name | Role | Phone | [...] + + | 08/26/ | Office | [facility] | Trisha Conner DNP | CKD (chronic kidney | | 2019 | Visit | VASCULAR SURGERY | [address] | disease) stage 5, | | | | [address] | [place] [address] [place], [place] | GFR less than 15 | | | | [place], [place] | [address] | ml/min (HCC) | | | | [address] | | (Primary Dx) | | | | [phone] | Brian Orosco MD | | | | | | [address] | | | | | | [place], [place] | | | | | | [address] | | | | | | [phone] | | | | | | | [...] CV: No peripheral edema, rate regular SKIN: Lapel, warm, dry without rash/lesion MS: ROM not [...] CV: No peripheral edema, rate regular SKIN: Lapel, warm, dry without rash/lesion MS: ROM not [...] | | | | | | [place] [address] | | | | | | [phone] | | | | | | | [...] [place] | | | | | | [address] | | | | | | | [...]
--- OUTSIDE RECORDS SUMMARY | ~2020-09-11 | XMS | Encounter Summary ---
Demographics + + + | Address | [address] | | | [place] [address] | + + + | Home Phone [...] Team Providers + +------+ + | Care Secretary Book Keeper Name | Role | Phone | [...] [address] | | | | | [place], [place] | [place], [place] | | | | | [address] | [address] | | | | | [phone] | [phone] | | | | | | | [...] | | | | | | [place] [address] | | | | | | [phone] | | | | | | | [...] | | | Visit | | [address] [place], [place] | | | | | | [address] | | | | | | | [...]
--- OUTSIDE RECORDS SUMMARY | ~2020-09-11 | XMS | Encounter Summary ---
Demographics + + + | Address | [address] | | | [place] [address] | + + + | Home Phone [...] Team Providers + +------+ + | Care Ornamental Iron Worker Name | Role | Phone | + +------+ + | Rahul Silva MD | PCP | | + +------+ + Encounter Details +--------+ + + + + | Date | Type | Department | Care Team | Description | +--------+ + + + + | 03/24/ | Orders Only | [facility] | Farrukh Acuna MD | | | 2017 | | NEPHROLOGY [place] | [address] | | | | | [address] | [address] [place], [place] | | | | | [address] [place] | [address] | | | | | [address] | | | | | | [phone] | | | +--------+ + + + [...] | | | | | | [place] [address] | | | | | | [phone] | | | | | | | [...] | | | Visit | | [address] [place], [place] | | | | | | [address] | | | | | | | [...]
--- OUTSIDE RECORDS SUMMARY | ~2020-09-11 | XMS | Encounter Summary ---
Demographics + + + | Address | [address] | | | [place] [address] | + + + | Home Phone [...] Team Providers + +------+ + | Care Catalytic Converter Operator Name | Role | Phone [...] | | | [address] | [place] [address] | | | | | [place] [address] | | | | | | [phone] | | | +--------+ + + + [...] | | 2019 | Visit | | SUMMER SESSIONS DIRECTOR [address] | | | | | | [address], | | | | | | [place] [address] | | | | | | [phone] | | | | | | | [...]
--- OUTSIDE RECORDS SUMMARY | ~2020-09-11 | XMS | Encounter Summary ---
Demographics + + + | Address | [address] | | | [place] [address] | + + + | Home Phone [...] Team Providers + +------+ + | Care Radiator Specialist Name | Role | Phone | [...] | | ([facility]) | [place] | | | | | | Procedures | [address] | | | | | | VAS Arm | Phone: | | | | | | Bilateral | [phone] | | | | | | Mapping For | Fax: | | | | | | Dialysis | [phone] | | +--------+--------+ + + + + [...] | | ([facility]) | [place] | | | | | | Procedures | [address] | | | | | | VAS Arm | Phone: | | | | | | Bilateral | [phone] | | | | | | Mapping For | Fax: | | | | | | Dialysis | [phone] | | +--------+--------+ + + + + Encounter Details +--------+ + + + + | Date | Type | Department | Care Team | Description | +--------+ + + + + | 08/20/ | Hospital | [facility] | Trisha Conner DNP | 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 | VASCULAR SURGERY | [address] | renal disease) ([facility]) | | | | ULTRASOUND [address] | [address] [place], [place] | | | | | [address] | [address] | | | | | [place], [place] | | | | | | [address] | | | | | | [phone] | | | +--------+ + + + [...] | | | | | | | ([facility]), Secondary | | | | | | | hyperparathyroidism | | | | | | | ([facility]) | | | | | [...] | 1 | 06/04/20 | | | (PRINIVILWESLYSTRIL) | | | | 19 | 0 [...] | | | | | | [place] [address] | | | | | | [phone] | | | | | | | | +--------+ + + + + | 09/19/ | Clinical | Cardiology | | | 2019 | Support | | | | +--------+ + + + + | 10/30/ | Virtual | Nephrology | Farrukh Acuna MD | | | 2019 | Office | | [address] | | | | Visit | | [address] [place], [place] | | | | | | [address] | | | | | | | [...]
--- OUTSIDE RECORDS SUMMARY | ~2020-09-11 | XMS | Encounter Summary ---
Demographics + + + | Address | [address] | | | [place] [address] | + + + | Home Phone [...] Providers + +------+ + | Care Forest Pathologist Name | Role | Phone | + +------+ + | Rahul Silva MD | PCP | | + +------+ + Encounter Details +--------+ + + + + | Date | Type | Department | Care Team | Description | +--------+ + + + + | 07/06/ | Orders Only | [facility] | Farrukh Acuna MD | | | 2018 | | NEPRHOLOGY G[place]ARD | [address] | | | | | [address] | [address] [place], [place] | | | | | [address] [place], [place] | [address] | | | | | [address] | | | | | | [phone] | | | +--------+ + + + [...] | | | | | | [place] [address] | | | | | | [phone] | | | | | | | [...] | | | Visit | | [address] [place], [place] | | | | | | [address] | | | | | | | [...] | | | LAB | | | [place] | | | | | + + [...]
--- OUTSIDE RECORDS SUMMARY | ~2020-09-11 | XMS | Encounter Summary ---
Demographics + + + | Address | [address] | | | [place] [address] | + + + | Home Phone [...] Team Providers + +------+ + | Care Renal Dialysis Rn Name | Role | Phone | [...] + | 12/30/ | Telephone | [facility] | Farrukh Acuna MD | Other (Medication | | 2019 | | [facility] | [address] | question.) | | | | [address] [place] | [address] [place], [place] | | | | | [address] [place] | [address] | | | | | [address] | | | | | | [phone] | | | +--------+ + + + [...] Miscellaneous Notes Telephone Encounter - Trinidad Simon, Airplane Cover Maker - 12/30/2019 4:35 PM PSTPatie nts daughter [...] time. Electronically sign ed by Trinidad Simon Airplane Cover Maker at 12/30/2019 4:40 PM PSTdocumented in this enc ounter Plan of Treatment +--------+ + + + + | Date | Type | Specialty | Care Team | Description | +--------+ + + + + | 09/19/ | Office | Cardiology | OdonnellMarch, | | 2019 | Visit | | TOLL PATROLMAN [address] | | | | | | [address], | | | | | | [place] [address] | | | | | | [phone] | | | | | | | [...] [place] | | | | | | [address] | | | | | | | | +--------+ + + + + documented as of this encounter Visit Diagnoses Not on filedocumented in this encounter"
--- OUTSIDE RECORDS SUMMARY | ~2020-09-11 | XMS | Encounter Summary ---
Demographics + + + | Address | [address] | | | [place] [address] | + + + | Home Phone [...] Team Providers + +------+ + | Care Pourer Metal Name | Role | Phone | + +------+ + | Rahul Silva MD | PCP | | + +------+ + Encounter Details +--------+ + + + + | Date | Type | Department | Care Team | Description | +--------+ + + + + | 06/15/ | Orders Only | [facility] | Conversion | | | 2019 | | NEPHROLOGY CONNIE | Transaction, | | | | | [address] | Provider Unknown | | | | | [address] | | | | | | [address] | (Fax) | | | | | [phone] | | | +--------+ + + + [...] | | | | | | [place] [address] | | | | | | [phone] | | | | | | | [...] | | | Visit | | [address] [place], [place] | | | | | | [address] | | | | | | | [...]
--- OUTSIDE RECORDS SUMMARY | ~2020-09-11 | XMS | Encounter Summary ---
Demographics + + + | Address | [address] | | | [place] [address] | + + + | Home Phone [...] Team Providers + +------+ + | Care Binding Cutter Name | Role | Phone | [...] [address] | | | | | [place], [place] | [place], [place] | | | | | [address] | [address] | | | | | [phone] | [phone] | | | | | | | [...] | | | | | | [place] [address] | | | | | | [phone] | | | | | | | [...] | | | Visit | | [address] [place], [place] | | | | | | [address] | | | | | | | [...]
--- OUTSIDE RECORDS SUMMARY | ~2020-09-11 | XMS | Encounter Summary ---
Demographics + + + | Address | [address] | | | [place] [address] | + + + | Home Phone [...] Providers + +------+ + | Care Poultry Raiser Name | Role | Phone | [...] | | | [address] | [place] [address] | | | | | [place] [address] | | | | | | [phone] | | | +--------+ + + + [...] | | | | | | [place] [address] | | | | | | [phone] | | | | | | | [...] | | | Visit | | [address] [facility] | | | | | | [address] | | | | | | | [...]
--- OUTSIDE RECORDS SUMMARY | ~2020-09-11 | XMS | Encounter Summary ---
Demographics + + + | Address | [address] | | | [place] [address] | + + + | Home Phone [...] Team Providers + +------+ + | Care Ios Architect Name | Role | Phone | [...] | Transaction, | | | | | [place], [place] | Provider Unknown | | | | | [address] | [phone] | | | | | [phone] | | | +--------+ + + + [...] | | | | | | [place] [address] | | | | | | [phone] | | | | | | | [...] | | | Visit | | [address] [place], [place] | | | | | | [address] | | | | | | | [...] Ordering Provider: ERVIN ANDREW, A , , , [place], | | [...]
--- OUTSIDE RECORDS SUMMARY | ~2020-09-11 | XMS | Encounter Summary ---
Demographics + + + | Address | [address] | | | [place] [address] | + + + | Home Phone [...] Team Providers + +------+ + | Care Grades 9 12 Tutor Name | Role | Phone | [...] | | | [address] | [place] [address] | | | | | [place] [address] | | | | | | [phone] | | | +--------+ + + + [...] | | 2019 | Visit | | HEAT TREATING FURNACE TENDER [address] | | | | | | [address], | | | | | | [place] [address] | | | | | | [phone] | | | | | | | [...]
--- OUTSIDE RECORDS SUMMARY | ~2020-09-11 | XMS | Encounter Summary ---
Demographics + + + | Address | [address] | | | [place] [address] | + + + | Home Phone [...] Team Providers + +------+ + | Care Dampener Name | Role | Phone | + +------+ + | Mehrdad Bergman | PCP | | + +------+ + Encounter Details +--------+ + + + + | Date | Type | Department | Care Team | Description | +--------+ + + + + | 03/16/ | Orders Only | [facility] | Trisha Conner DNP | | | 2020 | | VASCULAR SURGERY | [address] | | | | | [address] | [place] | | | | | [place], [place] | [address] | | | | | [address] | | | | | | [phone] | | | +--------+ + + + [...] He does not want to come to [facility] until the pandemic is over [...] | | | | | | [place] [address] | | | | | | [phone] | | | | | | | [...] [place] | | | | | | [address] | | | | | | | | +--------+ + + + + documented as of this encounter Visit Diagnoses Not on filedocumented in this encounter"
--- OUTSIDE RECORDS SUMMARY | ~2020-09-11 | XMS | Encounter Summary ---
Demographics + + + | Address | [address] | | | [place] [address] | + + + | Home Phone [...] + +------+ + | Care Home Health Care Provider Name | Role | Phone | + [...] + + | 10/20/ | Telephone | [facility] | Simon, | Other (Tera F/U) | | 2018 | | NEPHROLOGY [place] | Trinidad [facility] | | | | | [address] | [place] Laboratory Assistant | | | | | [address] [facility] | | | | | | [place] | | | | | | [address] | | | | | | [phone] | | | +--------+ + + + [...] Miscellaneous Notes Telephone Encounter - Trinidad Simon Machine Engraver - 10/20/2019 10:47 AM PSTCalle d to [...] | | 2019 | Visit | | TURNTABLE OPERATOR [address] | | | | | | [address], | | | | | | [place] [address] | | | | | | [phone] | | | | | | | [...] [place] | | | | | | [address] | | | | | | | | +--------+ + + + + documented as of this encounter Visit Diagnoses Not on filedocumented in this encounter
--- OUTSIDE RECORDS SUMMARY | ~2020-09-11 | XMS | Encounter Summary ---
Demographics + + + | Address | [address] | | | [place] [address] | + + + | Home Phone [...] Team Providers + +------+ + | Care Stripe Marker Name | Role | Phone | + +------+ + | Rahul Silva MD | PCP | | + +------+ + Encounter Details +--------+ + + + + | Date | Type | Department | Care Team | Description | +--------+ + + + + | 03/13/ | Orders Only | [facility] | Conversion | | | 2016 | | NEPHROLOGY CONNIE | Transaction, | | | | | [address] | Provider Unknown | | | | | [address] | | | | | | [address] | (Fax) | | | | | [phone] | | | +--------+ + + + [...] | | | | | | [place] [address] | | | | | | [phone] | | | | | | | [...] | | | Visit | | [address] [place], [place] | | | | | | [address] | | | | | | | | +--------+ + + + + documented as of this encounter Procedures + +--------+ + + + | Procedure Name | Priori | Date/Time | Associated Diagnosis | Comments | | | ty | | | | + +--------+ + + + | EXTERNAL LAB: [facility] | Routin | 03/13/2017 | | Results [...] - 1.030 | EXTERNAL | | | [place], | | | LAB | | | [...]
--- OUTSIDE RECORDS SUMMARY | ~2020-09-11 | XMS | Encounter Summary ---
Demographics + + + | Address | [address] | | | [place] [address] | + + + | Home Phone [...] Providers + +------+ + | Care Mechanic Senior Name | Role | Phone | + +------+ + | Rahul Silva MD | PCP | | + +------+ + Encounter Details +--------+ + + + + | Date | Type | Department | Care Team | Description | +--------+ + + + + | 09/07/ | Preadmit | [facility] | Brian Orosco MD | | | 2019 | Visit | CENTER PREADMIT | [address] | | | | | CLINIC [address] | [place], [place] | | | | | [place], [place] | [address] | | | | | [address] | [phone] | | | | | [phone] | | | +--------+ + + + [...] for the 09/07/19 encounter (Preadmit Visit) with [facility] ROOM 4 Medication Sig Instructions acyclovir (ZOVIRAX) [...] to check-in desk and are in the [facility] waiting room. AttachmentsThe following attachments cannot be sent through Care Everywhere.Hemodialysis Ac cess, Creating a (Irish)Dialysis, Arteriovenous (AV) Fistula for (Irish)documented in th is encounter Plan of Treatment +--------+ + + + + | Date | Type | Specialty | Care Team | Description | +--------+ + + + + | 09/19/ | Office | Cardiology | [place], | | | 2019 | Visit | | [facility] [address] | | | | | | [address] [place], | | | | | | [place] [address] | | | | | | [phone] | | | | | | | [...] | | Visit | | [address] | | | | | | [address] | | | | | | | [...] | | | | | performed at [facility], [address] | | | | | [address], | | | | | | [place] [address] | | | | + + + + + + + + | Specimen | + + | Blood | + + + + + + + | Performing | Address | City/State/Zipcode | Phone Number | | Organization | | | | + + + + + | [facility] | [address] | [place] [address] | [phone] | + + + + + CBC [...] 0.09Comment: Testing | 0.00 - 0.10 | [facility] | | | Absolute | performed at [facility], [address] | LAB[address]ATORY | | | | [address], | | | | | | [place] [address] | | | | + + + + + + + + | Specimen | + + | Blood | + + + + + + + | Performing | Address | City/State/Zipcode | Phone Number | | Organization | | | | + + + + + | [facility] | [address] | [place] [address] | [phone] | + + + + + ECG [...]
--- OUTSIDE RECORDS SUMMARY | ~2020-09-11 | XMS | Encounter Summary ---
Demographics + + + | Address | [address] | | | [place] [address] | + + + | Home Phone [...] Team Providers + +------+ + | Care Compensation And Benefits Administrator Name | Role | Phone | + +------+ + | Rahul Silva MD | PCP | | + +------+ + Encounter Details +--------+ + + + + | Date | Type | Department | Care Team | Description | +--------+ + + + + | 12/16/ | Orders Only | [facility] | Conversion | | | 2016 | | NEPHROLOGY [place] | Transaction, | | | | | [address] | Provider Unknown | | | | | [address] | | | | | | [address] | (Fax) | | | | | [phone] | | | +--------+ + + + [...] | | | | | | [place] [address] | | | | | | [phone] | | | | | | | [...] | | | Visit | | [address] [place], [place] | | | | | | [address] | | | | | | | [...]
--- OUTSIDE RECORDS SUMMARY | ~2020-09-11 | XMS | Encounter Summary ---
Demographics + + + | Address | [address] | | | [place] [address] | + + + | Home Phone [...] Team Providers + +------+ + | Care Studio Associate Name | Role | Phone | [...] + + | 08/13/ | Telephone | [facility] | Farrukh Acuna MD | Other (lab result) | | 2019 | | NEPRHOLOGY [place] | [address] | | | | | [address] | [address] [place], [place] | | | | | [address] [place], [place] | [address] | | | | | [address] | | | | | | [phone] | | | +--------+ + + + [...] Notes Telephone Encounter - Oly Alvarenga V, Knockdown Man - 08/13/2019 3:32 PM PD[address]om e with Dr. Acuna. Per Dr. Acuna, no change, potassium ok. Called and spoke with daughter, Charlotte. Relay the provider message. She voiced elizabeth g. No further questions. elephone Encounter - Oly Alvarenga V Knockdown Man - 08/13 3:05 PM PDTPlease review and [...] lab results. Please call them back at [phone]. Detailed message may be left on phone: Yes Last OV: 05/31/19 Next OV: 10/04/19 If this is a symptom based call and you were unable to immediately transfer the call to [facility] staff, was caller made aware that if at any timeshefeels it is an emergency they shoul d call 911 or go to the nearest emergency room? N/A Is plumber gasfitter needed: no documented in this enc ounter Plan of Treatment +--------+ + + + + | Date | Type | Specialty | Care Team | Description | +--------+ + + + + | 09/19/ | Office | Cardiology | BlasMarch, | | | 2019 | Visit | | AUTO DEALER [address] | | | | | | [address], | | | | | | [place] [address] | | | | | | [phone] | | | | | | | [...] [place] | | | | | | [address] | | | | | | | | +--------+ + + + + documented as of this encounter Visit Diagnoses Not on filedocumented in this encounter"
--- OUTSIDE RECORDS SUMMARY | ~2020-09-11 | XMS | Encounter Summary ---
Demographics + + + | Address | [address] | | | [place] [address] | + + + | Home Phone [...] Team Providers + +------+ + | Care Devil Dog Name | Role | Phone | + +------+ + | Rahul Silva MD | PCP | | + +------+ + Encounter Details +--------+ + + + + | Date | Type | Department | Care Team | Description | +--------+ + + + + | 07/14/ | Orders Only | [facility] | Farrukh Acuna MD | | | 2018 | | NEPRHOLOGY [place] | [address] | | | | | [address] | [address] [place], [place] | | | | | [address] [place], [place] | [address] | | | | | [address] | | | | | | [phone] | | | +--------+ + + + [...] | | | | | | [place] [address] | | | | | | [phone] | | | | | | | [...] | | | Visit | | [address] [place], [place] | | | | | | [address] | | | | | | | [...]
--- OUTSIDE RECORDS SUMMARY | ~2020-09-11 | XMS | Encounter Summary ---
Demographics + + + | Address | [address] | | | [place] [address] | + + + | Home Phone [...] Providers + +------+ + | Care Partner Alliance Manager Name | Role | Phone | + +------+ + | Rahul Silva MD | PCP | | + +------+ + Encounter Details +--------+---------+ + + + | Date | Type | Department | Care Team | Description | +--------+---------+ + + + | 10/04/ | Office | [facility] | Farrukh Acuna MD | CKD (chronic kidney | | 2019 | Visit | NEPHROLOGY [place] | [address] | disease) stage 5, | | | | [address] | [address] [place], [place] | GFR less than 15 | | | | [address] | [address] | ml/min (HCC) | | | | [place], [place] | | (Primary Dx); Anemia | | | | [address] | | of chronic kidney | | | | [phone] | | failure, stage 5 | | | | | | (HCC); Essential | | | | | | hypertension; Iron | | | | | | deficiency; | | | | | | Secondary | | | | | | hyperparathyroidism | | | | | | ([facility]); 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 Andujar is a 78 y.o. male patient with stage IV CKD on a background of diabetes & hypert ension and recent hospitalization for C-diff and hehydration. The most likely pathology here is that of diabetic nephropathy +/- hypertensive nephrosclerosis/arteriolosclerosis. He was hospitalized in 10/2016 with severe pneumonia, severe ZEKE; needed DOMESTIC VIOLENCE ADVOCATE for ~5 weeks b efore renal function [...] Also: I see no need for acute DOMESTIC VIOLENCE ADVOCATE. I see no need to send him [...] | | 2019 | Visit | | BLADE CHANGER [address] | | | | | | [address], | | | | | | [place] [address] | | | | | | [phone] | | | | | | | [...] [place] | | | | | | [address] | | | | | | | | +--------+ + + + + documented as of this encounter Visit Diagnoses + + | Diagnosis | + + | CKD (chronic kidney disease) stage 5, GFR less than 15 ml/min ([facility]) - Primary Chronic | | kidney disease, Stage V | + + | Anemia of chronic kidney failure, stage 5 ([facility]) | + + | Essential hypertension Unspecified [...]
--- OUTSIDE RECORDS SUMMARY | ~2020-09-11 | XMS | Encounter Summary ---
Demographics + + + | Address | [address] | | | [place] [address] | + + + | Home Phone [...] [place] | | | | | [address] | | + + + + + Care Team Providers + +------+ + | Care Wooden Shade Hardware Installer Name | Role | Phone | [...] [address] | | | | | | [place], [place] | | | | | | [address] | | | | | | [phone] | | | +--------+ + + + [...] of this encounter Progress Notes Interface, Construction Specialist In - 12/25/2006 5:00 AM [facility] [...] in the near future. Galo Arora M.D. Flight Engineer Manager, Division of Plastic & Reconstructive Surgery AYDEE/alfred documented in this encounter Plan of Treatment Not on filedocumented as of this encounter Visit Diagnoses Not on filedocumented in this encounter"
--- OUTSIDE RECORDS SUMMARY | ~2020-09-11 | XMS | Encounter Summary ---
Demographics + + + | Address | [address] | | | [place] [address] | + + + | Home Phone [...] + +------+ + | Care Health And Fitness Instructor Name | Role | Phone | + +------+ + | Rahul Silva MD | PCP | | + +------+ + Encounter Details +--------+ + + + + | Date | Type | Department | Care Team | Description | +--------+ + + + + | 07/17/ | Orders Only | [facility] | Conversion | | | 2016 | | NEPHROLOGY [place] | Transaction, | | | | | [address] | Provider Unknown | | | | | [address] | | | | | | [address] | (Fax) | | | | | [phone] | | | +--------+ + + + [...] | | | | | | [place] [address] | | | | | | [phone] | | | | | | | [...] | | | Visit | | [address] [place], [place] | | | | | | [address] | | | | | | | [...]
--- OUTSIDE RECORDS SUMMARY | ~2020-09-11 | XMS | Encounter Summary ---
Demographics + + + | Address | [address] | | | [place] [address] | + + + | Home Phone [...] Team Providers + +------+ + | Care Motorboat Mechanic Inboard Name | Role | Phone | + [...] + + | 09/17/ | Documentati | [facility] | KevonOly sullivan | Labs Only ([facility] | | 2019 | on | NEPRHOLOGY [place] | V, Medical | 08/24/19) | | | | [address] | Jack Frame Tender | | | | | [address] [place], [place] | | | | | | [address] | | | | | | [phone] | | | +--------+ + + + [...] | | 2019 | Visit | | LOOM INSPECTOR [address] | | | | | | [address], | | | | | | [place] [address] | | | | | | [phone] | | | | | | | [...] [place] | | | | | | [address] | | | | | | | [...] + + | REFERENCE LAB | [address] | [place] | [phone] | | [facility] | | [address] | | + + + + + | REFERENCE LAB | [address] [facility] | [place] | [phone] | | [facility] | | [address] | | + + + + + documented in this encounter Visit Diagnoses Not on filedocumented in this encounter"
--- OUTSIDE RECORDS SUMMARY | ~2020-09-11 | XMS | Encounter Summary ---
Demographics + + + | Address | [address] | | | [place] [address] | + + + | Home Phone [...] Team Providers + +------+ + | Care Strip Roller Name | Role | Phone | + +------+ + | Rahul Silva MD | PCP | | + +------+ + Encounter Details +--------+ + + + + | Date | Type | Department | Care Team | Description | +--------+ + + + + | 01/11/ | Orders Only | [facility] | Farrukh Acuna MD | Essential | | 2020 | | NEPHROLOGY [place] | [address] | hypertension | | | | [address] | [address] [place], [place] | (Primary Dx); | | | | [address] [place], [place] | [address] | Persistent | | | | [address] | | proteinuria; Anemia | | | | [phone] | | of chronic kidney | | | | | | failure, stage 5 | | | | | | ([facility]); CKD (chronic | | | [...] | | | | | | [place] [address] | | | | | | [phone] | | | | | | | [...] [place] | | | | | | [address] | | | | | | | [...] 5 | | | | | | ([facility] [...] 5 | | | | | | ([facility] [...] ([facility]) | + + | CKD (chronic kidney disease) stage 5, GFR less than 15 ml/min ([facility]) Chronic kidney | | disease, Stage V | + + documented in this encounter"
--- OUTSIDE RECORDS SUMMARY | ~2020-09-11 | XMS | Encounter Summary ---
Demographics + + + | Address | [address] | | | [place] [address] | + + + | Home Phone [...] Team Providers + +------+ + | Care Oil Field Caser Name | Role | Phone | [...] | | | | disease not | [place], | [place], [place] | | | | | on chronic | [place] [address] | [address] | | | | | dialysis | Phone: | Phone: | | | | | ([facility]) | [phone] | [phone] | | | | | Hypertension | Fax: | Fax: | | | | | , | [phone] | [phone] | | | | | unspecified | | | | | | | type | | | +--------+ + + + + + Encounter Details +--------+ + + + + | Date | Type | Department | Care Team | Description | +--------+ + + + + | 07/28/ | Orders Only | [facility] | Farrukh Acuna MD | Iron deficiency | | 2019 | | NEPHROLOGY [place] | [address] | (Primary Dx); Anemia | | | | [address] | [address] [place], [place] | of chronic kidney | | | | [address] [place], [place] | [address] | failure, stage 5 | | | | [address] | | ([facility]); Stage 5 | | | | [phone] | | chronic kidney | | | | | | disease not on | | | | | | chronic dialysis | | | | | | ([facility]); Secondary | | | | | | hyperparathyroidism | | | | | | ([facility]); Hypertension, | | | | [...] | | | | | | [place] [address] | | | | | | [phone] | | | | | | | [...] [place] | | | | | | [address] | | | | | | | [...] | 07/28/2020 | | | | | ([facility]) Hypertension, | | | | [...] dialysis | | | | | | ([facility]) Hypertension, | | | | [...] | | | ([facility]) Hypertension, | | | | [...] chronic | Ordered: 07/28/2019 | | to [facility] | Referral | e | kidney disease not | | | Surgery | | | on chronic dialysis | | | | | | ([facility]) Hypertension, | | | | [...]
--- OUTSIDE RECORDS SUMMARY | ~2020-09-11 | XMS | Encounter Summary ---
Demographics + + + | Address | [address] | | | [place] [address] | + + + | Home Phone [...] Team Providers + +------+ + | Care Pipefitter Name | Role | Phone | + [...] | | | stage 5, GFR | [address] | | | | | | less than | Phone: | | | | | | 15 ml/min | [phone] | | | | | | (HCC) | Fax: | | | | | | Procedures | [phone] | | | | | | VAS [...] + + | 10/20/ | Office | [facility] | Trisha Conner, MERY | CKD (chronic kidney | | 2019 | Visit | VASCULAR SURGERY | [address] | disease) stage 5, | | | | [address] | [address], [place] | GFR less than 15 | | | | [place], [place] | [address] | ml/min (HCC) | | | | [address] | | (Primary Dx); AVF | | | | [phone] | | (arteriovenous | | | | [...] Trisha Conner DNP - 10/20/2019 2:30 PM [facility] [address] [place] [address] Office: [phone] DATE OF VISIT: 10/20/2019 PATIENT NAME: Kavon Andujar : 1940; AGE: 79 y.o.; Sex:M PHONE NUMBER: ; ; PROVIDER: Trisha Conner DNP PRIMARY CARE / REFERRING PHYSICIAN: No ref. provider found / Rahul Silva MD / [address] [facility] / [place] [address] REASON FOR EVALUATION / CHIEF COMPLAINT: Vascular Surgery Postoperative Visit for AVF creation The patient presents today for a Vascular Surgery Postoperative Visit. The patient is statu s post right brachiocephalic AVF creation, which was performed on 09/10/[address] [facility] Operating Room. The patient is not having any pain. The patient denie s fever, wound drainage, increasing redness, pus, increasing pain, increasing swelling. Phys ical examination revealed surgical incision is healed. He has good thrills over the AVF site . Patient's biologics specialist is Dr. Acuna. The patient is not [...] | | 2019 | Visit | | COAL MINER [address] | | | | | | [address], | | | | | | [place] [address] | | | | | | [phone] | | | | | | | [...] | | | Visit | | [address] [place], [place] | | | | | | [address] | | | | | | | [...] | + + | AVF (arteriovenous fistula) (HCC) Arteriovenous fistula, acquired | + + documented in this encounter"
--- OUTSIDE RECORDS SUMMARY | ~2020-09-11 | XMS | Encounter Summary ---
Demographics + + + | Address | [address] | | | [place] [address] | + + + | Home Phone [...] Team Providers + +------+ + | Care Dock Worker Name | Role | Phone | [...] [address] | | | | | [place], [place] | [place], [place] | | | | | [address] | [address] | | | | | [phone] | [phone] | | | | | | | [...] | | | | | | [place] [address] | | | | | | [phone] | | | | | | | [...] | | | Visit | | [address] [place], [place] | | | | | | [address] | | | | | | | [...]
--- OUTSIDE RECORDS SUMMARY | ~2020-09-11 | XMS | Encounter Summary ---
Demographics + + + | Address | [address] | | | [place] [address] | + + + | Home Phone [...] Providers + +------+ + | Care Plate Washer Name | Role | Phone | [...] | | | [address] | [place] [address] | | | | | [place] [address] | | | | | | [phone] | | | +--------+ + + + [...] | | 2019 | Visit | | BULK SAUSAGE CASING TIER OFF [address] | | | | | | [address], | | | | | | [place] [address] | | | | | | [phone] | | | | | | | [...]
--- OUTSIDE RECORDS SUMMARY | ~2020-09-11 | XMS | Encounter Summary ---
Demographics + + + | Address | [address] | | | [place] [address] | + + + | Home Phone [...] Team Providers + +------+ + | Care Life Specialist Name | Role | Phone | + +------+ + | Mehrdad Bergman | PCP | | + +------+ + Encounter Details +--------+ + + + + | Date | Type | Department | Care Team | Description | +--------+ + + + + | 06/05/ | Orders Only | [facility] | Ami Cole, | CKD (chronic kidney | | 2019 | | NEPHROLOGY [place] | Credit Balance Specialist | disease) stage 5, | | | | [address] | | GFR less than 15 | | | | [address] | | ml/min ([facility]) | | | | [place], [place] | | (Primary Dx); Anemia | | | | [address] | | of chronic kidney | | | | [phone] | | failure, stage 5 | | | | | | ([facility]); Persistent | | | | | | [...] as of this encounter Progress Ami Pérez, Credit Balance Specialist - 06/05/2020 2:[address]ette [...] | | | | | | [place] [address] | | | | | | [phone] | | | | | | | [...] [place] | | | | | | [id number] | | | | | | | [...] | | than 15 ml/min ([facility]) | 06/05/2021 | | | | | Anemia of chronic | | | | | | kidney failure, | | | | | | stage 5 ([facility]) | | | | | | Persistent [...] | | than 15 ml/min ([facility]) | 06/05/2021 | | | | | Anemia of chronic | | | | | | kidney failure, | | | | | | stage 5 ([facility]) | | | | | | Persistent [...] | | than 15 ml/min ([facility]) | | | | | | Anemia of chronic | | | | | | kidney failure, | | | | | | stage 5 ([facility]) | | | | | | Persistent [...] | | than 15 ml/min ([facility]) | | | | | | Anemia of chronic | | | | | | kidney failure, | | | | | | stage 5 ([facility]) | | | | | | Persistent [...] | | than 15 ml/min ([facility]) | | | | | | Anemia of chronic | | | | | | kidney failure, | | | | | | stage 5 ([facility]) | | | | | | Persistent [...] | | than 15 ml/min ([facility]) | | | | | | Anemia of chronic | | | | | | kidney failure, | | | | | | stage 5 ([facility]) | | | | | | Persistent [...] | | than 15 ml/min ([facility]) | | | | | | Anemia of chronic | | | | | | kidney failure, | | | | | | stage 5 ([facility]) | | | | | | Persistent [...] | | than 15 ml/min ([facility]) | | | | | | Anemia of chronic | | | | | | kidney failure, | | | | | | stage 5 ([facility]) | | | | | | Persistent [...] GFR less than 15 ml/min ([facility]) - Primary Chronic | | kidney disease, Stage V | + + | Anemia of chronic kidney failure, stage 5 ([facility]) | + + | Persistent proteinuria Proteinuria | + + | Essential hypertension Unspecified essential hypertension | + + | Iron deficiency Other disorders of iron metabolism | + + documented in this encounter"
--- OUTSIDE RECORDS SUMMARY | ~2020-09-11 | XMS | Encounter Summary ---
Demographics + + + | Address | [address] | | | [place] [address] | + + + | Home Phone [...] Team Providers + +------+ + | Care Human Resources Operations Specialist Name | Role | Phone | [...] [address] | | | | | [place], [place] | [place], [place] | | | | | [address] | [address] | | | | | [phone] | [phone] | | | | | | | [...] | | | | | | [place] [address] | | | | | | [phone] | | | | | | | [...] | | | Visit | | [address] [place], [place] | | | | | | [address] | | | | | | | [...]
--- OUTSIDE RECORDS SUMMARY | ~2020-09-11 | XMS | Encounter Summary ---
Demographics + + + | Address | [address] | | | [place] [address] | + + + | Home Phone [...] Team Providers + +------+ + | Care Concaver Name | Role | Phone | + [...] + + | 05/18/ | Telephone | [facility] | Marilia Sandy | Other (ER report | | 2020 | | NEPRHOLOGY [place] | Rory RN | reviewed from | | | | [address] | | Sheila GILLIS | | | | [address] [place], [place] | | 05/16/20/No changes) | | | | [address] | | | | | | [phone] | | | +--------+ + + + [...] PM PDTDr Acuna reviewed ER report from [facility] from [facility] 05/16/2020. Per Dr Acuna, no changes at this time. Returned call to Kavon and relayed this message to him. No further questions at this time.Esteban weldon signed by Sandy Capellan RN at 05/18/2020 6:24 PM PDTTelephone Encounter - Sandy Phillips RN - 05/18/2020 6:22 PM PDT----- Message from Lee Ann Mcnulty sent at 020 3:44 PM PDT ----- Regarding: Armand- standing orders Provider: Armand patient and daughter called to let us know that he has been in and out of [facility] and has had lot of labs drawn. He is do for his 2 Week BMP and CBC. Can you please contact [facility] to get these 2 test result for Armand to review Please call them back at [phone]. Detailed message may be left on phone: Yes Last OV: 03/27/2020 Next OV: 06/05/2020 If this is a symptom based call and you were unable to immediately transfer the call to [facility] staff, was caller made aware that if at any timehefeels it is an emergency they should call 911 or go to the nearest emergency room? N/A Is street light lamp cleaner needed: no documented in this encounter Plan of Treatment +--------+ + + + + | Date | Type | Specialty | Care Team | Description | +--------+ + + + + | 09/19/ | Office | Cardiology | OdonnellMarch, | | | 2019 | Visit | | PARTNER MANAGEMENT CONSULTANT [address] | | | | | | [address], | | | | | | [place] [address] | | | | | | [phone] | | | | | | | [...] [place] | | | | | | [id number] | | | | | | | | +--------+ + + + + documented as of this encounter Visit Diagnoses Not on filedocumented in this encounter"
--- OUTSIDE RECORDS SUMMARY | ~2020-09-11 | XMS | Encounter Summary ---
Demographics + + + | Address | [address] | | | [place] [address] | + + + | Home Phone [...] Providers + +------+ + | Care Clinical Trial Specialist Name | Role | Phone | [...] + | 09/10/ | Anesthesia | [facility] | Venkata Carroll | | | 2019 | [facility] | [address] | | | | | OPERATING ROOM [address] | | | | | [address] | [place] [address] | | | | | [place], [place] | [phone] | | | | | [address] | | | | | | [phone] | | | +--------+ + + + + Anesthesia Record + + + + + | Procedure Name | Responsible | Anesthesia Start | Anesthesia Stop Time | | | Anesthesiologist | Time | | + + + + + | INSERTION AV FISTULA | Venkata Carroll, | 09/10/19 1307 | 09/10/19 1401 | | (Right BBF) (Right | BIOMEDICAL SPECIALIST | | | | Arm Upper) | [...] 09/10/19 1600 by | | eral | qcvc-hse-tkismu catheter system; | Trinidad Ramírez | Leana [...] EVALUATION Kavon Andujar 79 y.o. male 1940 [id number] Procedure(s) INSERTION AV FISTULA (Right BBF) (Right [...] EVALUATION Kavon Andujar 79 y.o. male 1940 [id number] Procedure(s): INSERTION AV FISTULA (Right BBF) (Right [...] NOTE Kavon Andujar 79 y.o. male 1940 [id number] INSERTION AV FISTULA (Right BBF) (Right Arm [...] | 10/20/ | Office | Cardiology | OdonnellMarch, | | | 2019 | Visit | | FLAT LOCKER [address] | | | | | | [address], | | | | | | [place] [address] | | | | | | [phone] | | | | | | | [...] [place] | | | | | | [address] | | | | | | | [...]
--- OUTSIDE RECORDS SUMMARY | ~2020-09-11 | XMS | Encounter Summary ---
Demographics + + + | Address | [address] | | | [place] [address] | + + + | Home Phone [...] Providers + +------+ + | Care Emergency Room Nurse Name | Role | Phone | [...] + + | 09/07/ | Telephone | [facility] | Sandy Gomez, | Surgery Appointment | | 2019 | | VASCULAR SURGERY | RN | | | | | [address] | | | | | | [place] | | | | | | [address] | | | | | | [phone] | | | +--------+ + + + [...] | | 2019 | Visit | | VENEER SPLICER [address] | | | | | | [address], | | | | | | [place] [address] | | | | | | [phone] | | | | | | | [...] [place] | | | | | | [address] | | | | | | | | +--------+ + + + + documented as of this encounter Visit Diagnoses Not on filedocumented in this encounter"
--- OUTSIDE RECORDS SUMMARY | ~2020-09-11 | XMS | Encounter Summary ---
Demographics + + + | Address | [address] | | | [place] [address] | + + + | Home Phone [...] Team Providers + +------+ + | Care Rangeland Management Specialist Name | Role | Phone [...] | | [address] | [place] [address] | | | | | [place] [address] | | | | | | [phone] | | | +--------+ + + + [...] [address], | | | | | | [place] [address] | | | | | | [phone] | | | | | | | [...] | | | Visit | | [address] [place] | | | | | | [address] | | | | | | | [...]
--- OUTSIDE RECORDS SUMMARY | ~2020-09-11 | XMS | Encounter Summary ---
Demographics + + + | Address | [address] | | | [place] [address] | + + + | Home Phone [...] Team Providers + +------+ + | Care Ton Container Shipper Name | Role | Phone | + [...] [address] | | | | | [place], [place] | [place], [place] | | | | | [address] | [address] | | | | | [phone] | | | | | | | [...] | | | | | | [place] [address] | | | | | | [phone] | | | | | | | [...] | | | Visit | | [address] [place], [place] | | | | | | [address] | | | | | | | [...]
--- OUTSIDE RECORDS SUMMARY | ~2020-09-11 | XMS | Encounter Summary ---
Demographics + + + | Address | [address] | | | [place] [address] | + + + | Home Phone [...] Providers + +------+ + | Care Pipe Racker Name | Role | Phone | + [...] [address] | | | | | [place], [place] | [place], [place] | | | | | [address] | [address] | | | | | [phone] | | | | | | | [...] | | | | | | [place] [address] | | | | | | [phone] | | | | | | | [...] | | | Visit | | [address] [place], [place] | | | | | | [address] | | | | | | | [...]
--- OUTSIDE RECORDS SUMMARY | ~2020-09-11 | XMS | Encounter Summary ---
Demographics + + + | Address | [address] | | | [place] [address] | + + + | Home Phone [...] Team Providers + +------+ + | Care Criminal Profiler Name | Role | Phone | + [...] + + | 10/04/ | Documentati | [facility] | Simon, | Results (09/30/19) | | 2019 | on | NEPHROLOGY [place] | [facility] | | | | | [address] | Financial Reporting Manager | | | | | [address] | | | | | | [place] | | | | | | [address] | | | | | | [phone] | | | +--------+ + + + [...] | | | | | | [place] [address] | | | | | | [phone] | | | | | | | [...] [place] | | | | | | [address] | | | | | | | [...]
--- OUTSIDE RECORDS SUMMARY | ~2020-09-11 | XMS | Encounter Summary ---
Demographics + + + | Address | [address] | | | [place] [address] | + + + | Home Phone [...] Providers + +------+ + | Care Front Maker Lockstitch Name | Role | Phone | [...] | | | 2018 | | NEPRHOLOGY [place] | [address] | | | | | [address] | [address] [place], [place] | | | | | [address] [place], [place] | [address] | | | | | [address] | | | | | | [phone] | | | +--------+ + + + [...] | | | | | | [place] [address] | | | | | | [phone] | | | | | | | [...] | | | Visit | | [address] [place], [place] | | | | | | [address] | | | | | | | [...]
--- OUTSIDE RECORDS SUMMARY | ~2020-09-11 | XMS | Encounter Summary ---
Demographics + + + | Address | [address] | | | [place] [address] | + + + | Home Phone [...] + +------+ + | Care Real Estate Manager Name | Role | Phone | [...] + + | 08/09/ | Documentati | [facility] | Simon, | Other ([place] | | 2019 | on | NEPHROLOGY [place] | Charlie Abdi | ER note 08/01/20) | | | | [address] | Gas Controller | | | | | [address] [facility], [place] | | | | | | [address] | | | | | | [phone] | | | +--------+ + + + [...] | | 2019 | Visit | | CONTACT LENS MOLDER [address] | | | | | | [address], | | | | | | [place] [address] | | | | | | [phone] | | | | | | | [...] [place] | | | | | | [address] | | | | | | | [...]
--- OUTSIDE RECORDS SUMMARY | ~2020-09-11 | XMS | Encounter Summary ---
Demographics + + + | Address | [address] | | | [place] [address] | + + + | Home Phone [...] [place] | | | | | [address] | | + + + + + Care Team Providers + +------+ + | Care Supervisor Carton And Can Supply Name | Role | Phone | + +------+ + PCP | Unavailable | + +------+ + Encounter Details +--------+ + + + + | Date | Type | Department | Care Team | Description | +--------+ + + + + | 03/30/ | Results | | Other, Faculty | | | 1992 | Only | | [phone] | | +--------+ + + + + [...] | | + +---------+ + + | [facility] DEPARTMENT OF | | | | | [...] | | | | | | | [id number] AND | | | | | | [...] | | + +---------+ + + | [facility] DEPARTMENT OF | | | | | [...] | | + +---------+ + + | [facility] DEPARTMENT OF | | | | | [...] | | | | | | HARDIK BRENAL | | | | | | PORFIRIO [...] | | + +---------+ + + | [facility] DEPARTMENT OF | | | | | [...] | | | | | | | [id number] | | | | | | CHEST: [...] | | + +---------+ + + | [facility] DEPARTMENT OF | | | | | [...] | | | | | | | [id number] | | | | | | CHEST: [...] | | + +---------+ + + | [facility] DEPARTMENT OF | | | | | [...] | | | | | | | [id number], | | | | | | PORTABLE, [...] | | + +---------+ + + | [facility] DEPARTMENT OF | | | | | [...] | | | | | | | [id number], | | | | | | PORTABLE, [...] and | | | | | | Forsyth Ganzcatheter are | | | | | [...] | | + +---------+ + + | [facility] DEPARTMENT OF | | | | | [...] | | | | | | [facility] | | | | | | Bilateral [...] | | | | | | a Forsyth-Lupe catheter | | | | | | [...] | | | | placement of a Forsyth-Lupe | | | | | | catheter. CHEST, | | | | | | SINGLE AP PORTABLE: | | | | | | 03-31-93 AT 1000 HOURS | | | | | | FINDINGS: Since the | | | | | | prior study, the | | | | | | Forsyth-Lupe catheter has | | | | | [...] IMPRESSION: | | | | | | Forsyth-Lupe catheter | | | | | | [...] The | | | | | | Forsyth-Lupe catheter | | | | | | [...] and | | | | | | Forsyth-Lupe catheter | | | | | | [...] endotracheal | | | | | | tube,Forsyth-Lupe catheter | | | | | | [...] | | | | | | a Forsyth-Lupe catheter | | | | | | [...] | | | | placement of a Forsyth-Lupe | | | | | | catheter. CHEST, | | | | | | SINGLE AP PORTABLE: | | | | | | 03-31-93 AT 1000 HOURS | | | | | | FINDINGS: Since the | | | | | | prior study, the | | | | | | Forsyth-Lupe catheter has | | | | | [...] IMPRESSION: | | | | | | Forsyth-Lupe catheter | | | | | | [...] The | | | | | | Forsyth-Lupe catheter | | | | | | [...] and | | | | | | Forsyth-Lupe catheter | | | | | | [...] endotracheal | | | | | | tube,Forsyth-Lupe catheter | | | | | | [...] | | | | | | a Forsyth-Lupe catheter | | | | | | [...] | | | | placement of a Forsyth-Lupe | | | | | | catheter. CHEST, | | | | | | SINGLE AP PORTABLE: | | | | | | 03-31-93 AT 1000 HOURS | | | | | | FINDINGS: Since the | | | | | | prior study, the | | | | | | Forsyth-Lupe catheter has | | | | | [...] IMPRESSION: | | | | | | Forsyth-Lupe catheter | | | | | | [...] The | | | | | | Forsyth-Lupe catheter | | | | | | [...] and | | | | | | Forsyth-Lupe catheter | | | | | | [...] endotracheal | | | | | | tube,Forsyth-Lupe catheter | | | | | | [...] | | + +---------+ + + | [facility] DEPARTMENT OF | | | | | [...] | | | | | | a Forsyth-Lupe catheter | | | | | | [...] | | | | placement of a Forsyth-Lupe | | | | | | catheter. CHEST, | | | | | | SINGLE AP PORTABLE: | | | | | | 03-31-93 AT 1000 HOURS | | | | | | FINDINGS: Since the | | | | | | prior study, the | | | | | | Forsyth-Lupe catheter has | | | | | [...] IMPRESSION: | | | | | | Forsyth-Lupe catheter | | | | | | [...] The | | | | | | Forsyth-Lupe catheter | | | | | | [...] and | | | | | | Forsyth-Lupe catheter | | | | | | [...] endotracheal | | | | | | tube,Forsyth-Lupe catheter | | | | | | [...] | | + +---------+ + + | [facility] DEPARTMENT OF | | | | | [...] | | | | | | a Forsyth-Lupe catheter | | | | | | [...] | | | | placement of a Forsyth-Lupe | | | | | | catheter. CHEST, | | | | | | SINGLE AP PORTABLE: | | | | | | 03-31-93 AT 1000 HOURS | | | | | | FINDINGS: Since the | | | | | | prior study, the | | | | | | Forsyth-Lupe catheter has | | | | | [...] IMPRESSION: | | | | | | Forsyth-Lupe catheter | | | | | | [...] The | | | | | | Forsyth-Lupe catheter | | | | | | [...] and | | | | | | Forsyth-Lupe catheter | | | | | | [...] endotracheal | | | | | | tube,Forsyth-Lupe catheter | | | | | | [...] | | + +---------+ + + | [facility] DEPARTMENT OF | | | | | [...] | | | | | | a Forsyth-Lupe catheter | | | | | | [...] | | | | placement of a Forsyth-Lupe | | | | | | catheter. CHEST, | | | | | | SINGLE AP PORTABLE: | | | | | | 03-31-93 AT 1000 HOURS | | | | | | FINDINGS: Since the | | | | | | prior study, the | | | | | | Forsyth-Lupe catheter has | | | | | [...] IMPRESSION: | | | | | | Forsyth-Lupe catheter | | | | | | [...] The | | | | | | Forsyth-Lupe catheter | | | | | | [...] and | | | | | | Forsyth-Lupe catheter | | | | | | [...] endotracheal | | | | | | tube,Forsyth-Lupe catheter | | | | | | [...] | | + +---------+ + + | [facility] DEPARTMENT OF | | | | | [...] | | | | | | a Forsyth-Lupe catheter | | | | | | [...] | | | | placement of a Forsyth-Lupe | | | | | | catheter. CHEST, | | | | | | SINGLE AP PORTABLE: | | | | | | 03-31-93 AT 1000 HOURS | | | | | | FINDINGS: Since the | | | | | | prior study, the | | | | | | Forsyth-Lupe catheter has | | | | | [...] IMPRESSION: | | | | | | Forsyth-Lupe catheter | | | | | | [...] The | | | | | | Forsyth-Lupe catheter | | | | | | [...] and | | | | | | Forsyth-Lupe catheter | | | | | | [...] endotracheal | | | | | | tube,Forsyth-Lupe catheter | | | | | | [...] | | + +---------+ + + | [facility] DEPARTMENT OF | | | | | RADIOLOGY | | | | + +---------+ + + documented in this encounter Visit Diagnoses Not on filedocumented in this encounter"
--- OUTSIDE RECORDS SUMMARY | ~2020-09-11 | XMS | Encounter Summary ---
Demographics + + + | Address | [address] | | | [place] [address] | + + + | Home Phone [...] Team Providers + +------+ + | Care Upfitter Name | Role | Phone | + [...] [address] | | | | | [place], [place] | [place], [place] | | | | | [address] | [address] | | | | | [phone] | | | | | | | [...] | | | | | | [place] [address] | | | | | | [phone] | | | | | | | [...] | | | Visit | | [address] [place], [place] | | | | | | [address] | | | | | | | [...]
--- OUTSIDE RECORDS SUMMARY | ~2020-09-11 | XMS | Encounter Summary ---
Demographics + + + | Address | [address] | | | [place] [address] | + + + | Home Phone [...] Providers + +------+ + | Care Head Up Operator Name | Role | Phone [...] [address] | | | | | [place], [place] | [place], [place] | | | | | [address] | [address] | | | | | [phone] | [phone] | | | | | | | [...] | | | | | | [place] [address] | | | | | | [phone] | | | | | | | [...] | | | Visit | | [address] [place], [place] | | | | | | [address] | | | | | | | [...]
--- OUTSIDE RECORDS SUMMARY | ~2020-09-11 | XMS | Encounter Summary ---
Demographics + + + | Address | [address] | | | [place] [address] | + + + | Home Phone [...] Team Providers + +------+ + | Care Green House Manager Name | Role | Phone | + +------+ + | Rahul Silva MD | PCP | | + +------+ + Encounter Details +--------+ + + + + | Date | Type | Department | Care Team | Description | +--------+ + + + + | 10/10/ | Orders Only | [facility] | Farrukh Acuna MD | | | 2013 | | NEPHROLOGY [place] | [address] | | | | | [address] | [address] [place], [place] | | | | | [address] | [address] | | | | | [address] | | | | | | [phone] | | | +--------+ + + + [...] | | 2019 | Visit | | INDUSTRY OPERATIONS INVESTIGATOR [address] | | | | | | [address], | | | | | | [place] [address] | | | | | | [phone] | | | | | | | [...] [place] | | | | | | [address] | | | | | | | [...] | | | LAB | | | [place] | | | | | + + [...]
--- OUTSIDE RECORDS SUMMARY | ~2020-09-11 | XMS | Encounter Summary ---
Demographics + + + | Address | [address] | | | [place] [address] | + + + | Home Phone [...] Team Providers + +------+ + | Care Bookkeeping Machine Operator Name | Role | Phone [...] + + | 05/04/ | Refill | [facility] | Farrukh Acuna MD | Medication Refill | | 2020 | | NEPHROLOGY [place] | [address] | | | | | [address] | [address] [place], [place] | | | | | [address] | [address] | | | | | [place] | | | | | | [address] | | | | | | [phone] | | | +--------+--------+ + + + [...] | | 2019 | Visit | | AUTOMATIC DRILLING MACHINE OPERATOR [address] | | | | | | [address], | | | | | | [place] [address] | | | | | | [phone] | | | | | | | [...] [place] | | | | | | [address] | | | | | | | [...]
--- OUTSIDE RECORDS SUMMARY | ~2020-09-11 | XMS | Encounter Summary ---
Demographics + + + | Address | [address] | | | [place] [address] | + + + | Home Phone [...] Team Providers + +------+ + | Care Embedded Firmware Engineer Name | Role | Phone | + +------+ + | Rahul Silva MD | PCP | | + +------+ + Encounter Details +--------+ + + + + | Date | Type | Department | Care Team | Description | +--------+ + + + + | 08/20/ | Orders Only | [facility] | Farrukh Acuna MD | Stage 4 chronic | | 2019 | | NEPHROLOGY [place] | [address] | kidney disease (HCC) | | | | [address] | [address] [place], [place] | (Primary Dx); | | | | [address] | [address] | Persistent | | | | [place], [place] | | proteinuria; | | | | [address] | | Secondary | | | | [phone] | | hyperparathyroidism | | | | [...] [place], | | | | | | [place] [address] | | | | | | [phone] | | | | | | | [...] | | | Visit | | [address] [place] | | | | | | [id number] | | | | | | | [...] | | | ([facility]) | | + [...]
--- OUTSIDE RECORDS SUMMARY | ~2020-09-11 | XMS | Encounter Summary ---
Demographics + + + | Address | [address] | | | [place] [address] | + + + | Home Phone [...] [place] | | | | | [address] | | + + + + + Care Team Providers + +------+ + | Care Lucerne Farmer Name | Role | Phone | [...] [address] | | | | | | [place], [place] | | | | | | [address] | | | | | | [phone] | | | +--------+ + + + [...] of this encounter Progress Notes Interface, Service Crew Leader In - 01/22/2007 3:04 AM PST CLINIC DATE: 06/07/97 NEUROLOGY CLINIC HISTORY OF PRESENT ILLNESS: Mr. Andujar is a 56 year-old male who is being evaluated in the Clinic for problems with balance and tremulousness of both upper extremities. He has been referred to this Clinic by Dr. Valles from [place], [place], and has also previously undergone extensive evaluations in the Neurosurgical Clinic and at Vascular Surgery at [facility]. His most recent hospitalization to [facility] was December 28, 1996, when he underwent [...] evaluation in the Pain Management Clinic at [facility] and previous trials of Neurontin and mexiletine hydrochloride apparently appears to have been unsuccessful. Shortly following his December hospitalization at [facility], Mr. Andujar apparently became comatose in January from an accidental overdose of Darvon for which he was admitted to [facility] in [place], [place]. The details pertaining to this hospitalization are currently not available but as per Mr. Andujar, he was in a coma for a six day period and upon recovery noted tremulousness of both upper extremities, worse on his left than on his right. Prior to his hospitalization at [facility] and following his discharge from [facility], he apparently was ambulating with crutches since the stump pain precluded the use of his left lower extremity prosthesis. Since his discharge from [facility], however, he has been experiencing increasing problems with balance and apparently has fallen on several occasions. The head CT-scan that was done at [facility], dated February 07, 1997, reveals a low attenuation area in the left anterior basal ganglia felt to represent a small lacunar infarct, with no other significant abnormality. Mr. Andujar states that during the course of his hospitalization at [facility] he apparently fell on three occasions sustaining occipital head trauma but did not undergo subsequent brain imaging studies. His stay at [facility] lasted two weeks. By his report, [...] Mr. Andujar specifically denies impairment of hand personal banker, impaired strength in either upper extremity or [...] currently lives in a [facility] in [place], [place]. 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 He currently smokes one-half qaat-bup-vuo since age 23. Denies current alcohol use [...] in turn led to his hospitalization at [facility] in January 1997 for coma at [...] procedures for pain relief. Michelle Landon M.D. Commissions Manager, Neurology GN:fermin C: 06/28/97 cc: RUBIA VALLES MD [address] [facility] [address] Alina Moise M.D. Professor and Working Second Hand, Division of Neurosurgery Robert Carlson M.D. Professor, Vascular Surgery documented in this encounter Plan of Treatment Not on filedocumented as of this encounter Visit Diagnoses Not on filedocumented in this encounter"
--- OUTSIDE RECORDS SUMMARY | ~2020-09-11 | XMS | Encounter Summary ---
Demographics + + + | Address | [address] | | | [place] [address] | + + + | Home Phone [...] Providers + +------+ + | Care Clinical Operations Manager Name | Role | Phone | + +------+ + | Rahul Silva MD | PCP | | + +------+ + Encounter Details +--------+ + + + + | Date | Type | Department | Care Team | Description | +--------+ + + + + | 09/01/ | Orders Only | [facility] | Farrukh Acuna MD | | | 2013 | | NEPHROLOGY [place] | [address] | | | | | [address] | [address] [place], [place] | | | | | [address] [place] | [address] | | | | | [address] | | | | | | [phone] | | | +--------+ + + + [...] | | 2019 | Visit | | TICK ERADICATOR [address] | | | | | | [address], | | | | | | [place] [address] | | | | | | [phone] | | | | | | | [...] [place] | | | | | | [address] | | | | | | | [...] | | | LAB | | | [place] | | | | | + + [...]
--- OUTSIDE RECORDS SUMMARY | ~2020-09-11 | XMS | Encounter Summary ---
Demographics + + + | Address | [address] | | | [place] [address] | + + + | Home Phone [...] [place] | | | | | [address] | | + + + + + Care Team Providers + +------+ + | Care Womens Volleyball Coach Name | Role | Phone | [...] [id number] | | | | | | [place], [place] | | | | | | [address] | | | | | | [phone] | | | +--------+ + + + [...] [facility] | [address] | [place] [address] | | | PATHOLOGY | [address] [...] [facility] | [address] | [place] [address] | | | PATHOLOGY | [address] [...] | + + + + + | [facility] | [address] | [place] [address] | | | PATHOLOGY | [address] [...] [facility] | [address] | [place] [address] | | | PATHOLOGY | [address] | | | + + + + + documented in this encounter Visit Diagnoses Not on filedocumented in this encounter
--- OUTSIDE RECORDS SUMMARY | ~2020-09-11 | XMS | Encounter Summary ---
Demographics + + + | Address | [address] | | | [place] [address] | + + + | Home Phone [...] Providers + +------+ + | Care Bill Board Poster Name | Role | Phone | + [...] [address] | | | | | [place], [place] | [place], [place] | | | | | [address] | [address] | | | | | [phone] | [phone] | | | | | | | [...] | | | | | | [place] [address] | | | | | | [phone] | | | | | | | [...] | | | Visit | | [address] [place], [place] | | | | | | [address] | | | | | | | [...]
--- OUTSIDE RECORDS SUMMARY | ~2020-09-11 | XMS | Encounter Summary ---
Demographics + + + | Address | [address] | | | [place] [address] | + + + | Home Phone [...] Providers + +------+ + | Care Teacher Drama Name | Role | Phone | + [...] + | 11/08/ | Documentati | [facility] | Alfred, | Results (10/10/19) | | 2019 | on | NEPHROLOGY [place] | [facility] | | | | | [address] | Radiotelephone Operator | | | | | [address] | | | | | | [place] | | | | | | [address] | | | | | | [phone] | | | +--------+ + + + [...] | 2019 | Visit | | SENIOR RESIDENT CARE DIRECTOR [address] | | | | | | [address], | | | | | | [place] [address] | | | | | | [phone] | | | | | | | [...] [place] | | | | | | [address] | | | | | | | [...]
--- OUTSIDE RECORDS SUMMARY | ~2020-09-11 | XMS | Encounter Summary ---
Demographics + + + | Address | [address] | | | [place] [address] | + + + | Home Phone [...] Team Providers + +------+ + | Care Interventional Physiatrist Name | Role | Phone | + [...] + + | 08/01/ | Documentati | [facility] | Alfred, | Other (IV fersonyaeme | | 2020 | on | [place]PHROLOGY [place] | [facility] | order and new | | | | [address] | [place] | procrit order sent | | | | [address] [place], [place] | | to [facility] Shannan IVT | | | | [address] | | confirmation | | | | [phone] | | received 07/28) | +--------+ + [...] | | | | | | [place] [address] | | | | | | [phone] | | | | | | | | +--------+ + + + + | 09/19/ | Clinical | Cardiology | | | 2019 | Support | | | | +--------+ + + + + | 10/30/ | Virtual | Nephrology | Farrukh Acuna MD | | | 2020 | Office | | [address] | | | | Visit | | [address] [place] | | | | | | [id number] | | | | | | | | +--------+ + + + + documented as of this encounter Visit Diagnoses Not on filedocumented in this encounter"
--- OUTSIDE RECORDS SUMMARY | ~2020-09-11 | XMS | Encounter Summary ---
Demographics + + + | Address | [address] | | | [place] [address] | + + + | Home Phone [...] Team Providers + +------+ + | Care Search Engine Marketing Manager Name | Role | Phone [...] | | | 2018 | | NEPHROLOGY [place] | [address] | | | | | [address] | [address] [place], [place] | | | | | [address], [place] | [address] | | | | | [address] | | | | | | [phone] | | | +--------+ + + + [...] | | | | | | [place] [address] | | | | | | [phone] | | | | | | | [...] | | | Visit | | [address] [place], [place] | | | | | | [address] | | | | | | | | +--------+ + + + + documented as of this encounter Procedures + +--------+ + + + | Procedure Name | Priori | Date/Time | Associated Diagnosis | Comments | | | ty | | | | + +--------+ + + + | EXTERNAL LAB: [facility] | Routin | 02/12/2018 | | Results [...] | | | LAB | | | [place] | | | | | + + [...]
--- OUTSIDE RECORDS SUMMARY | ~2020-09-11 | XMS | Encounter Summary ---
Demographics + + + | Address | [address] | | | [place] [address] | + + + | Home Phone [...] Providers + +------+ + | Care Lease Broker Name | Role | Phone | [...] | | | [address] | [place] [address] | | | | | [place] [address] | | | | | | [phone] | | | +--------+ + + + [...] | | 2019 | Visit | | [facility] [address] | | | | | | [address], | | | | | | [place] [address] | | | | | | [phone] | | | | | | | [...]
--- OUTSIDE RECORDS SUMMARY | ~2020-09-11 | XMS | Encounter Summary ---
Demographics + + + | Address | [address] | | | [place] [address] | + + + | Home Phone [...] Team Providers + +------+ + | Care Dumpling Machine Operator Name | Role | Phone | + +------+ + | Rahul Silva MD | PCP | | + +------+ + Encounter Details +--------+ + + + + | Date | Type | Department | Care Team | Description | +--------+ + + + + | 11// | Orders Only | [facility] | Farrukh Acuna MD | Essential | | 2019 | | NEPHROLOGY [place] | [address] | hypertension | | | | [address] | [address] [place], [place] | (Primary Dx); [place] | | | | [address] | [address] | deficiency; | | | | [place], [place] | | Secondary | | | | [address] | | hyperparathyroidism | | | | [phone] | | (HCC); CKD (chronic | | | | | | kidney disease) | | | | | | stage 5, GFR less | | | | | | than 15 ml/min ([facility]) | +--------+ + + [...] | | 2019 | Visit | | [facility] [address] | | | | | | [address] [place], | | | | | | [place] [address] | | | | | | [phone] | | | | | | | [...] [place] | | | | | | [address] | | | | | | | [...]
--- OUTSIDE RECORDS SUMMARY | ~2020-09-11 | XMS | Encounter Summary ---
Demographics + + + | Address | [address] | | | [place] [address] | + + + | Home Phone [...] Providers + +------+ + | Care Project Analyst Name | Role | Phone | + +------+ + | Rahul Silva MD | PCP | | + +------+ + Encounter Details +--------+ + + + + | Date | Type | Department | Care Team | Description | +--------+ + + + + | 04/10/ | Orders Only | [facility] | Conversion | | | 2014 | | NEPJUANCARLOS [place] | Transaction, | | | | | [address] | Provider Unknown | | | | | [address] [place], [place] | [phone] | | | | | [address] | | | | | | [phone] | | | +--------+ + + + [...] | | | | | | [place] [address] | | | | | | [phone] | | | | | | | [...] [place] | | | | | | [address] [...]
--- OUTSIDE RECORDS SUMMARY | ~2020-09-11 | XMS | Encounter Summary ---
Demographics + + + | Address | [address] | | | [place] [address] | + + + | Home Phone [...] Providers + +------+ + | Care Retail Center Receptionist Name | Role | Phone | [...] | | | [address] | [place] [address] | | | | | [place] [address] | | | | | | [phone] | | | +--------+ + + + [...] | | | | | | [place] [address] | | | | | | [phone] | | | | | | | [...] | | | Visit | | [address] [facility]NOTE [facility] | | | | | | [address] | | | | | | | [...]
--- OUTSIDE RECORDS SUMMARY | ~2020-09-11 | XMS | Encounter Summary ---
Demographics + + + | Address | [address] | | | [place] [address] | + + + | Home Phone [...] Team Providers + +------+ + | Care Institute Director Name | Role | Phone | [...] (ear) | | | | [address] [facility] [address] | [address] [place] | | | | | [place] | [address] | | | | | [address] | | | | | | [phone] | | | +--------+ + + + [...] Miscellaneous Notes Telephone Encounter - Sarah Manzanares, Ticket Collector Or Usher - 08/07/2016 3:14 PM PDTCalled a nd [...] dry elephone Breann jackson - Sarah Manzanares, Ticket Collector Or Usher - 08/07/2016 11:03 AM PDTPatient daughter calls [...] | | 2019 | Visit | | SOIL CONSERVATION TECHNICIAN [address] | | | | | | [address] [place], | | | | | | [place] [address] | | | | | | [phone] | | | | | | | [...] [place] | | | | | | [address] | | | | | | | | +--------+ + + + + documented as of this encounter Visit Diagnoses Not on filedocumented in this encounter"
--- OUTSIDE RECORDS SUMMARY | ~2020-09-11 | XMS | Encounter Summary ---
Demographics + + + | Address | [address] | | | [place] [address] | + + + | Home Phone [...] Providers + +------+ + | Care Financial Assistance Advisor Name | Role | Phone | + +------+ + | Rahul Silva MD | PCP | | + +------+ + Encounter Details +--------+ + + + + | Date | Type | Department | Care Team | Description | +--------+ + + + + | 02/24/ | Orders Only | [facility] | Conversion | | | 2016 | | NEPHROLOGY [place] | Transaction, | | | | | [address] | Provider Unknown | | | | | [address] [place] | | | | | | [phone] | (Fax) | | | | | [phone] | | | +--------+ + + + [...] | | | | | | [place] [address] | | | | | | [phone] | | | | | | | [...] | | | Visit | | [address] [place], [place] | | | | | | [address] | | | | | | | | +--------+ + + + + documented as of this encounter Procedures + +--------+ + + + | Procedure Name | Priori | Date/Time | Associated Diagnosis | Comments | | | ty | | | | + +--------+ + + + | EXTERNAL LAB: DUNIA | Routin | 02/24/2017 | | Results [...] - 1.030 | EXTERNAL | | | [place], | | | LAB | | | [...]
--- OUTSIDE RECORDS SUMMARY | ~2020-09-11 | XMS | Encounter Summary ---
Demographics + + + | Address | [address] | | | [place] [address] | + + + | Home Phone [...] Team Providers + +------+ + | Care Controlled Atmospheric Furnace Brazer Name | Role | Phone | + [...] + + | 09/10/ | Surgery | [facility] | Brian Orosco MD | INSERTION AV FISTULA | | 2019 | [facility] | [address] | (Right BBF) | | | | OPERATING ROOM [address] | [place], [place] | | | | | [address] | [address] | | | | | [place], [place] | [phone] | | | | | [address] | | | | | | [phone] | | | +--------+---------+ + + + [...] shunt, please contact your ph ysician at [phone]. Discharge instructions for Diagnostic Imaging sedation patients [...] . For any severe symptoms, please call [phone] or report to your nearest Emergency Department. Acetaminophen; Hydrocodone tablets or capsules Brand Names: Anexsia, Lorcet, Lorcet HD, Lorcet Plus, Lortab, Barrett, Verdrocet, Vicodin, Vi codin ES, Vicodin HP, [...] information carefully each time. Talk to your filtrose crusher regarding the use of this medicine in children. Special care may be needed. What side effects may I notice from receiving this medicine? Side effects that you should report to your doctor or health rn coronary care unit as soon as p ossible: allergic reactions [...] attention (report to your doctor or health rn coronary care unit if they continue or are bothersome): constipation [...] to an official disposal site. Contact the [facility] at [phone] or your [facility] to find a site. If you [...] this medicine? Tell your doctor or health rn coronary care unit if your pain does not go away, [...] cuts, scrapes, or blows. Date Last Reviewed: 12/01/201619995047-8169 [employer]. [address] [place] [address]. All righ ts reserved. This information is [...] 145 MCG | | | 1 | / | | | capsule | | | [...] and bl ood clots prevention. Prescription for Barrett given and side effects were explained. Patient states that he also takes oxycodone at home; patient and his family were educated about taki ng oxycodone or Barrett only and not both. OTC Tylenol intake precautions also discussed. Arabella ent and his family verbalized understanding and agreeable. Opportunity to ask questions give n, all questions were answered. Leana Pimentel RN documented in this encounter H&P Notes Brian Orosco MD - 09/10/2019 12:28 PM [facility] Service: Vascular Surgery Pre-Operative History [...] CV: No peripheral edema, rate regular SKIN: [place], warm, dry without rash/lesion MS: ROM not [...] Orosco MD - 09/10/2019 2:00 PM PDT [facility] Service: Vascular Surgery Operative Note Pre-operative Diagnosis: CKD and need for [facility] dialysis access Post-operative Diagnosis: same Procedure(s): Right brachiocephalic fistula creation Surgeon: Brian Orosco MD Low Pressure Boiler Operator(s): None Anesthesia: Monitor Anesthesia care and [...] | | 2019 | Visit | | NEW PATIENT ESCORT [address] | | | | | | [address] [place], | | | | | | [place] [address] | | | | | | [phone] | | | | | | | [...] | | | Visit | | [address] [place], [place] | | | | | | [address] | | | | | | | [...] Testing | 65 - 99 mg/dL | [facility] | | | POC | performed at [facility];[address] | | LABORATORY | | | | [address];[place] | | | | | | [address] | | | | + + + + + + + + | Specimen | + + | | + + + + + + + | Performing | Address | City/State/Zipcode | Phone Number | | Organization | | | | + + + + + | [facility] | [address] | [place] [address] | [phone] | + + + + + POC [...] | | | POC | performed at [facility];[address] | | LABORATORY | | | | [address];[place], [place] | | | | | | [address] | | | | + + + + + + + + | Specimen | + + | | + + + + + + + | Performing | Address | City/State/Zipcode | Phone Number | | Organization | | | | + + + + + | [facility] | [address] | [place] [address] | [phone] | + + + + + documented [...] One week or | | | longer, wajrpu-sdp-ltdai use of | | | at least [...] | Units | | | | Starting Fri09/10/19 at 1335, | | PM PDT | | | | | Intra-op | | | | | | + +-------+ +--------+---+---+ +---+---+ | | | +---+---+ documented in this encounter
--- OUTSIDE RECORDS SUMMARY | ~2020-09-11 | XMS | Encounter Summary ---
Demographics + + + | Address | [address] | | | [place] [address] | + + + | Home Phone [...] Providers + +------+ + | Care Supervisor Beet End Name | Role | Phone | + +------+ + | Rahul Silva MD | PCP | | + +------+ + Encounter Details +--------+ + + + + | Date | Type | Department | Care Team | Description | +--------+ + + + + | 05/27/ | Orders Only | [facility] | Conversion | | | 2018 | | NEPJUANCARLOS [place] | Transaction, | | | | | [address] | Provider Unknown | | | | | [address] [place], [place] | [phone] | | | | | [address] | (Fax) | | | | | [phone] | | | +--------+ + + + [...] | | | | | | [place] [address] | | | | | | [phone] | | | | | | | [...] | | | Visit | | [address] [place], [place] | | | | | | [address] | | | | | | | | +--------+ + + + + documented as of this encounter Procedures + +--------+ + + + | Procedure Name | Priori | Date/Time | Associated Diagnosis | Comments | | | ty | | | | + +--------+ + + + | EXTERNAL LAB: DUNIA | Routin | 05/27/2018 | | Results [...]
--- OUTSIDE RECORDS SUMMARY | ~2020-09-11 | XMS | Encounter Summary ---
Demographics + + + | Address | [address] | | | [place] [address] | + + + | Home Phone [...] Providers + +------+ + | Care Gate Keeper Name | Role | Phone | + +------+ + | Rahul Silva MD | PCP | | + +------+ + Encounter Details +--------+---------+ + + + | Date | Type | Department | Care Team | Description | +--------+---------+ + + + | 07/26/ | Office | [facility] | Farrukh Acuna MD | Stage 5 chronic | | 2019 | Visit | NEPHROLOGY [place] | [address] | kidney disease not | | | | [address] | [address] [place], [place] | on chronic dialysis | | | | [address] | [address] | (HCC) (Primary Dx); | | | | [place], [place] | | Edema of lower | | | | [address] | | extremity; Tobacco | | | | [phone] | | dependence syndrome; | | | [...] Also: I see no need for acute DIVISION SERVICE MANAGER. I see no need to [...] 05/31/19 1232 Encounter Date: 05/31/2019 Status: Signed Casino Enforcement Agent: Farrukh Acuna MD (Physician) Patient Active Problem [...] 10/2016 with severe pneumonia, severe ZEKE; needed DIVISION SERVICE MANAGER for ~5 weeks b efore renal function recovery mid 12/2016. He was admitted to [facility] for 3 nights in July 2016 [...] 19.5 (A) 05/27/2019 LABPROT 2,445.6 (A) 03/01/2019 [id number] 30 10/08/2018 Assessment: Mr. Andujar is a 78 y.o. male patient with stage IV CKD on a background of diabetes & hypert ension and recent hospitalization for C-diff and hehydration. The most likely pathology here is that of diabetic nephropathy +/- hypertensive nephrosclerosis/arteriolosclerosis. He was hospitalized in 10/2016 with severe pneumonia, severe ZEKE; needed DIVISION SERVICE MANAGER for ~5 weeks b efore [...] Also: I see no need for acute DIVISION SERVICE MANAGER. I see no need to [...] with questions or concerns. Truly yours, Farrukh Acuan MD FACP, FASH, FAHA documented in this [...] | | | | | | [place] [address] | | | | | | [phone] | | | | | | | [...] [place] | | | | | | [address] | | | | | | | [...]
--- OUTSIDE RECORDS SUMMARY | ~2020-09-11 | XMS | Encounter Summary ---
Demographics + + + | Address | [address] | | | [place] [address] | + + + | Home Phone [...] Team Providers + +------+ + | Care Aed Trainer Name | Role | Phone | + +------+ + | Rahul Silva MD | PCP | | + +------+ + Encounter Details +--------+ + + + + | Date | Type | Department | Care Team | Description | +--------+ + + + + | 08/20/ | Orders Only | [facility] | Farrukh Acuna MD | Anemia of chronic | | 2019 | | NEPHROLOGY [place] | [address] | renal failure, stage | | | | [address] | [address] [place], [place] | 4 (severe) (HCC) | | | | [address] [place], [place] | [address] | (Primary Dx); Stage | | | | [address] | | 4 chronic kidney | | | | [phone] | | disease (HCC); | | | [...] | | | | | | [place] [address] | | | | | | [phone] | | | | | | | [...] | | | Visit | | [address] [place], [place] | | | | | | [address] | | | | | | | [...]
--- OUTSIDE RECORDS SUMMARY | ~2020-09-11 | XMS | Encounter Summary ---
Demographics + + + | Address | [address] | | | [place] [address] | + + + | Home Phone [...] Providers + +------+ + | Care Child & Adolescent Psychiatrist Name | Role | Phone | [...] [address] | | | | | [place], [place] | [place], [place] | | | | | [address] | [address] | | | | | [phone] | [phone] | | | | | | | [...] | | | | | | [place] [address] | | | | | | [phone] | | | | | | | [...] | | | Visit | | [address] [place], [place] | | | | | | [address] | | | | | | | [...]
--- OUTSIDE RECORDS SUMMARY | ~2020-09-11 | XMS | Encounter Summary ---
Demographics + + + | Address | [address] | | | [place] [address] | + + + | Home Phone [...] [place] | | | | | [address] | | + + + + + Care Team Providers + +------+ + | Care Staffing Operations Manager Name | Role | Phone [...] [place] | | | | | | [address] | | | | | | [place], [place] | | | | | | [address] | | | | | | [phone] | | | +--------+ + + + [...] as of this encounter Progress Notes Interface, Strap Making Machine Operator In - 02/14/2007 3:12 AM PDT [facility] and [address] [address] or September 09, 1996 Nestor VALLES MD [address] [place] [address] RE: PORFIRIO ZAVALA MR#: [id number] Valles: Your patient, Porfirio Zavala, was seen for follow up today in the Neurosurgery Clinic at [facility]. 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 Following our initial evaluation, we recommended [...] Fellow, Neurosurgery Alina Moise M.D. Professor and Photo Retoucher, Division of Neurosurgery [place] documented in this encounter Plan of Treatment Not on filedocumented as of this encounter Visit Diagnoses Not on filedocumented in this encounter"
--- OUTSIDE RECORDS SUMMARY | ~2020-09-11 | XMS | Encounter Summary ---
Demographics + + + | Address | [address] | | | [place] [address] | + + + | Home Phone [...] Providers + +------+ + | Care Physician Allergist Immunologist Name | Role | Phone | + [...] [facility]) | [place], [place] | | | | | | Procedures | [address] | | | | | | VAS Arm | Phone: | | | | | | Bilateral | [phone] | | | | | | Mapping For | Fax: | | | | | | Dialysis | [phone] | | +--------+--------+ + + + + [...] + + | 07/30/ | Telephone | [facility] | Trisha Conner DNP | Referral Consult | | 2019 | | CARDIOTHORACIC | [address] | | | | | SURGERY [address] | [place] [place], [place] | | | | | [address] | [address] | | | | | [place], [place] | | | | | | [address] | | | | | | [phone] | | | +--------+ + + + [...] would like imaging to be done at [facility] documented in this encounter Plan of Treatment +--------+ + + + + | Date | Type | Specialty | Care Team | Description | +--------+ + + + + | 09/19/ | Office | Cardiology | Odon[place], | | | 2019 | Visit | | VP DATA [address] | | | | | | [address] [place], | | | | | | [place] [address] | | | | | | [phone] | | | | | | | [...] [place] | | | | | | [address] | | | | | | | [...]
--- OUTSIDE RECORDS SUMMARY | ~2020-09-11 | XMS | Encounter Summary ---
Demographics + + + | Address | [address] | | | [place] [address] | + + + | Home Phone [...] Team Providers + +------+ + | Care Loading Shovel Oiler Name | Role | Phone | + +------+ + | Rahul Silva MD | PCP | | + +------+ + Encounter Details +--------+ + + + + | Date | Type | Department | Care Team | Description | +--------+ + + + + | 05/27/ | Orders Only | [facility] | Farrukh Acuna MD | | | 2019 | | NEPHROLOGY [place] | [address] | | | | | [address] | [address] [place], [place] | | | | | [address] [place], [place] | [address] | | | | | [address] | | | | | | [phone] | | | +--------+ + + + [...] | | | | | | [place] [address] | | | | | | [phone] | | | | | | | [...] | | | Visit | | [address] [place], [place] | | | | | | [address] | | | | | | | | +--------+ + + + + documented as of this encounter Procedures + +--------+ + + + | Procedure Name | Priori | Date/Time | Associated Diagnosis | Comments | | | ty | | | | + +--------+ + + + | EXTERNAL LAB: DUNIA | Routin | 05/27/2019 | | Results [...]
--- OUTSIDE RECORDS SUMMARY | ~2020-09-11 | XMS | Encounter Summary ---
Demographics + + + | Address | [address] | | | [place] [address] | + + + | Home Phone [...] Providers + +------+ + | Care Cigar Head Holer Name | Role | Phone | + +------+ + | Rahul Silva MD | PCP | | + +------+ + Encounter Details +--------+ + + + + | Date | Type | Department | Care Team | Description | +--------+ + + + + | 07/24/ | Orders Only | [facility] | Provider, | Chronic kidney | | 2019 | | SYSTEM GENERIC OP | MD [address] | disease, stage IV | | | | CONVERSION [address] | [address] | (severe) ([facility]); | | | | [address] [place], [place] | [place] [address] | Persistent | | | | [address] | | proteinuria; | | | | [phone] | | Secondary | | | | | | hyperparathyroidism | | | | | | of renal origin | | | | | | ([facility]); Family | | | | [...] [place], | | | | | | [place] [address] | | | | | | [phone] | | | | | | | [...] [place] | | | | | | [address] | | | | | | | [...] origin | | | | | | ([facility]) Persistent | | | | [...] origin | | | | | | ([facility]) Persistent | | | | [...]
--- OUTSIDE RECORDS SUMMARY | ~2020-09-11 | XMS | Encounter Summary ---
Demographics + + + | Address | [address] | | | [place] [address] | + + + | Home Phone [...] Team Providers + +------+ + | Care Range Manager Name | Role | Phone | + +------+ + | Rahul Silva MD | PCP | | + +------+ + Encounter Details +--------+ + + + + | Date | Type | Department | Care Team | Description | +--------+ + + + + | 02/12/ | Orders Only | [facility] | Conversion | | | 2018 | | NEPHROLOGY [place] | Transaction, | | | | | [address] | Provider Unknown | | | | | [address] | | | | | | [address] | (Fax) | | | | | [phone] | | | +--------+ + + + [...] | | | | | | [place] [address] | | | | | | [phone] | | | | | | | [...] | | | Visit | | [address] [place], [place] | | | | | | [address] | | | | | | | [...]
--- OUTSIDE RECORDS SUMMARY | ~2020-09-11 | XMS | Encounter Summary ---
Demographics + + + | Address | [address] | | | [place] [address] | + + + | Home Phone [...] Team Providers + +------+ + | Care Ux Research Associate Name | Role | Phone | [...] [place] | | | | | | [address] | (Fax) | | | | | [phone] | | | +--------+ + + + [...] | | | | | | [place] [address] | | | | | | [phone] | | | | | | | [...] | | | Visit | | [address] [place], [place] | | | | | | [address] [...] | | | LAB | | | Guyanese | | | | | + + [...]
--- OUTSIDE RECORDS SUMMARY | ~2020-09-11 | XMS | Encounter Summary ---
Demographics + + + | Address | [address] | | | [place] [address] | + + + | Home Phone [...] Providers + +------+ + | Care Cover Stripper Name | Role | Phone | [...] [address] | | | | | [place], [place] | [place], [place] | | | | | [address] | [address] | | | | | [phone] | [phone] | | | | | | | [...] | | | | | | [place] [address] | | | | | | [phone] | | | | | | | [...] | | | Visit | | [address] [place], [place] | | | | | | [address] | | | | | | | [...]
--- OUTSIDE RECORDS SUMMARY | ~2020-09-11 | XMS | Encounter Summary ---
Demographics + + + | Address | [address] | | | [place] [address] | + + + | Home Phone [...] Providers + +------+ + | Care Agriculture Consultant Name | Role | Phone | [...] + + | 05/31/ | Documentati | [facility] | Ami Cole, | Results | | 2020 | on | NEPRHOLOGY [place] | Global Marketing Intern | (interpath-05/29/2020 | | | | [address] | | ) | | | | [address] [place], [place] | | | | | | [address] | | | | | | [phone] | | | +--------+ + + + [...] | 2019 | Visit | | SENIOR MORTGAGE UNDERWRITER [address] | | | | | | [address] [place], | | | | | | [place] [address] | | | | | | [phone] | | | | | | | [...] | | | Visit | | [address] [place], [place] | | | | | | [address] | | | | | | | [...]
--- OUTSIDE RECORDS SUMMARY | ~2020-09-11 | XMS | Encounter Summary ---
Demographics + + + | Address | [address] | | | [place] [address] | + + + | Home Phone [...] Team Providers + +------+ + | Care Tipple Boss Name | Role | Phone | + [...] | | | [address] | [place] [address] | | | | | [place] [address] | | | | | | [phone] | | | +--------+ + + + [...] | | 2019 | Visit | | MENTAL HEALTH COUNSELOR [address] | | | | | | [address] [place], | | | | | | [place] [address] | | | | | | [phone] | | | | | | | [...]
--- OUTSIDE RECORDS SUMMARY | ~2020-09-11 | XMS | Encounter Summary ---
Demographics + + + | Address | [address] | | | [place] [address] | + + + | Home Phone [...] Providers + +------+ + | Care Pipe Layer Helper Name | Role | Phone [...] + + | 03/14/ | Refill | [facility] | Farrukh Acuna MD | Medication Refill | | 2019 | | NEPHROLOGY [place] | [address] | | | | | [address] | [address] [place], [place] | | | | | [address] | [address] | | | | | [place] | | | | | | [address] | | | | | | [phone] | | | +--------+--------+ + + + [...] | | | | | | [place] [address] | | | | | | [phone] | | | | | | | | +--------+ + + + + | 09/19/ | Clinical | Cardiology | | | | 2019 | Support | | | | +--------+ + + + + | 10/30/ | Virtual | Nephrology | Frarukh Acuna MD | | | 2019 | Office | | [address] | | | | Visit | | [address] [place] | | | | | | [address] | | | | | | | [...]
--- OUTSIDE RECORDS SUMMARY | ~2020-09-11 | XMS | Encounter Summary ---
Demographics + + + | Address | [address] | | | [place] [address] | + + + | Home Phone [...] [place] | | | | | [address] | | + + + + + Care Team Providers + +------+ + | Care Cost Estimating Engineer Name | Role | Phone | [...] [place] | | | | | | [address] | | | | | | [place], [place] | | | | | | [address] | | | | | | [phone] | | | +--------+ + + + [...] as of this encounter Progress Notes Interface, Facilities Supervisor In - 01/22/2007 3:04 AM PST [facility] and [address] [address] or June 07, 1997 Pravin VALLES MD [address] [facility] [place] [address] RE:Kavon Andujar MR#:[id number] Valles: I saw Kavon Andujar in the Neurology Clinic today and have enclosed a copy of my note. As you know, he endorses worsening of upper extremity tremulousness since his "stroke" related to accidental overdose of Darvon, for which he was admitted to [facility] in January of this year. [...] over the telephone. Sincerely, Michelle Landon M.D. Pile Driver Operator Barge Mounted, Neurology JINNY/ C: 06/13/97 cc: Alina Moise M.D. Division of Neurosurgery [facility] Robert Carlson M.D. Division of Vascular Surgery [facility] documented in this encounter Plan of Treatment Not on filedocumented as of this encounter Visit Diagnoses Not on filedocumented in this encounter
--- OUTSIDE RECORDS SUMMARY | ~2020-09-11 | XMS | Encounter Summary ---
Demographics + + + | Address | [address] | | | [place] [address] | + + + | Home Phone [...] Team Providers + +------+ + | Care Radiographer Technologist Name | Role | Phone | [...] [address] | (cancellation) | | | | [place], | [place], [place] | | | | | [place] [address] | [address] | | | | | [phone] | | | +--------+ + + + [...] with Dr. Magana at 1pm for a TANBARK LABORER consult due to not feeling well. Appointment [...] | | | | | | [place] [address] | | | | | | [phone] | | | | | | | [...]
--- OUTSIDE RECORDS SUMMARY | ~2020-09-11 | XMS | Encounter Summary ---
Demographics + + + | Address | [address] | | | [place] [address] | + + + | Home Phone [...] Providers + +------+ + | Care Retail Greeter Name | Role | Phone | + [...] + + | 09/10/ | Hospital | [facility] | Brian Orosco MD | CKD (chronic kidney | | 2019 | Encounter | [facility] | [address] | disease) stage 5, | | | | OPERATING RO[address] | [place] | GFR less than 15 | | | | [address] | [address] | ml/min ([facility]) | | | | [place] | [phone] | | | | | [address] | | | | | | [phone] | | | +--------+ + + + [...] shunt, please contact your ph ysician at [phone]. Discharge instructions for Diagnostic Imaging sedation patients [...] Anexsia, Lorcet, Lorcet HD, Lorcet Plus, Lortab, Newman, Verdrocet, Vicodin, Vi codin ES, Vicodin HP, [...] information carefully each time. Talk to your adjustment clerk regarding the use of this medicine in children. Special care may be needed. What side effects may I notice from receiving this medicine? Side effects that you should report to your doctor or health tire care manager as soon as p ossible: [...] attention (report to your doctor or health tire care manager if they continue or are [...] the [facility] at [phone] or your nationwide [facility] government to find a site. If [...] this medicine? Tell your doctor or health tire care manager if your pain does not [...] cuts, scrapes, or blows. Date Last Reviewed: 12/01/201619993015-4788 [employer] [place] [address]. All righ ts reserved. This information is [...] | | | | ([facility]), Secondary | | | | [...] and bl ood clots prevention. Prescription for Newman given and side effects were explained. Patient states that he also takes oxycodone at home; patient and his family were educated about taki ng oxycodone or Newman only and not both. OTC Tylenol intake precautions also discussed. Arabella ent and his family verbalized understanding and agreeable. Opportunity to ask questions give n, all questions were answered. Melveyne B. Pimentel, RN documented in this encounter H&P Notes Brian Orosco MD - 09/10/2019 12:28 PM [facility] Service: Vascular Surgery Pre-Operative History [...] CV: No peripheral edema, rate regular SKIN: [place], warm, dry without rash/lesion MS: ROM not [...] Orosco MD - 09/10/2019 2:00 PM PDT [facility] Service: Vascular Surgery Operative Note Pre-operative Diagnosis: CKD and need for skilled nursing dialysis access Post-operative Diagnosis: same Procedure(s): Right brachiocephalic fistula creation Surgeon: Brian Orosco MD Wood Pole Treater(s): None Anesthesia: Monitor Anesthesia care and Local [...] | | 2019 | Visit | | WILDLIFE CONSERVATION PROFESSOR [address] | | | | | | [address] [place], | | | | | | [place] [address] | | | | | | [phone] | | | | | | | [...] | | | Visit | | [address] [place], [place] | | | | | | [address] | | | | | | | [...] Testing | 65 - 99 mg/dL | [facility] | | | POC | performed at [facility];[address] | | LABORATORY | | | | [address];[place] | | | | | | [address] | | | | + + + + + + + + | Specimen | + + | | + + + + + + + | Performing | Address | City/State/Zipcode | Phone Number | | Organization | | | | + + + + + | [facility] | [address] | [place] [address] | [phone] | + + + + + POC [...] | | | POC | performed at [facility];[address] | | LABORATORY | | | | [address];[place], [place] | | | | | | [address] | | | | + + + + + + + + | Specimen | + + | | + + + + + + + | Performing | Address | City/State/Zipcode | Phone Number | | Organization | | | | + + + + + | [facility] | [address] | [place] [address] | [phone] | + + + + + documented in this encounter Visit Diagnoses + + | Diagnosis | + + | CKD (chronic kidney disease) stage 5, GFR less than 15 ml/min ([facility]) - Primary Chronic | | [...] One week or | | | longer, uhgpzu-whu-[id number] use of | | | at least [...]
--- OUTSIDE RECORDS SUMMARY | ~2020-09-11 | XMS | Encounter Summary ---
Demographics + + + | Address | [address] | | | [place] [address] | + + + | Home Phone [...] Providers + +------+ + | Care Family And Divorce Legal Assistant Name | Role | Phone | + +------+ + | Rahul Silva MD | PCP | | + +------+ + Encounter Details +--------+ + + + + | Date | Type | Department | Care Team | Description | +--------+ + + + + | 11/05/ | Orders Only | [facility] | Farrukh Acuna MD | Essential | | 2019 | | NEPHROLOGY [place] | [address] | hypertension | | | | [address] | [address] [place], [place] | (Primary Dx); Iron | | | | [address] | [address] | deficiency; Anemia | | | | [place], [place] | | 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
--- OUTSIDE RECORDS SUMMARY | ~2020-09-11 | XMS | Encounter Summary ---
Demographics + + + | Address | [address] | | | [place] [address] | + + + | Home Phone [...] Providers + +------+ + | Care International Tax Manager Name | Role | Phone | [...] + + | 09/24/ | Telephone | [facility] | Farrukh Acuna MD | Lab Results | | 2019 | | NEPHROLOGY [place] | [address] | | | | | [address] | [address] [place], [place] | | | | | [address] [place] | [address] | | | | | [address] | | | | | | [phone] | | | +--------+ + + + [...] Miscellaneous Notes Telephone Encounter - Trinidad Simon, Numerical Tool Programmer - 09/24/2019 2:49 [address] Shannan bloom reviewed labs and stated that the patient labs show that he is stable. Called Charlotte and informed her of this. She verbalized understanding and had no further que stions at this time.Electronically signed by Trinidad Simon, Numerical Tool Programmer at 2018 3:22 PM PDTTelephone Encounter - Trinidad Simon, Numerical Tool Programmer - 09/24/2019 2:46 PM PDTPatients daughter called [...] | | 2019 | Visit | | HYPERBARIC NURSE [address] | | | | | | [address] [place], | | | | | | [place] [address] | | | | | | [phone] | | | | | | | [...] [place] | | | | | | [address] | | | | | | | | +--------+ + + + + documented as of this encounter Visit Diagnoses Not on filedocumented in this encounter"
--- OUTSIDE RECORDS SUMMARY | ~2020-09-11 | XMS | Encounter Summary ---
Demographics + + + | Address | [address] | | | [place] [address] | + + + | Home Phone [...] + +------+ + | Care Freight Car Cleaner [employer] System Name | Role | Phone | + +------+ + PCP | Unavailable | + +------+ + Encounter Details +--------+ + + + + | Date | Type | Department | Care Team | Description | +--------+ + + + + | 05/28/ | Hospital | [facility] | Elisabeth, | CORON ATHEROSCL | | 2002 - | Encounter | [facility] | MD Joshua | [place] CORON VESSEL | | | | CLINICAL DECISION | [address] | | | 05/29/ | | [address] | [address] [place], [place] | | | 2002 | | [place], [place] | [address] | | | | | [address] | [phone] | | | | | [phone] | | | +--------+ + + + [...] | | | | | | [place] [address] | | | | | | [phone] | | | | | | | [...] [place] | | | | | | [address] | | | | | | | | +--------+ + + + + documented as of this encounter Visit Diagnoses + + | Diagnosis | + + | Coronary atherosclerosis of [place] coronary artery | + + documented in this encounter"
--- OUTSIDE RECORDS SUMMARY | ~2020-09-11 | XMS | Encounter Summary ---
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
--- OUTSIDE RECORDS SUMMARY | ~2020-09-11 | XMS | Encounter Summary ---
Demographics + + + | Address | [address] | | | [place] [address] | + + + | Home Phone [...] Providers + +------+ + | Care Medical Record Retrieval Specialist Name | Role | Phone | [...] + + | 03/23/ | Documentati | [facility] | Simon, | Results (03/21/20) | | 2020 | on | NEPHROLOGY [place] | [facility] | | | | | [address] | Furnace Door Tender | | | | | [place] [facility] | | | | | | [place], [place] | | | | | | [address] | | | | | | [phone] | | | +--------+ + + + [...] | | 2019 | Visit | | HSE ADVISOR [address] | | | | | | [address], | | | | | | [place] [address] | | | | | | [phone] | | | | | | | | +--------+ + + + + | 09/19/ | Clinical | Cardiology | | | | 2019 | Support | | | | +--------+ + + + + | 10/30/ | Virtual | Nephrology | Farrukh Acuna MD | | | 2019 | Office | | [address] | | | | Visit | | [address] [place] | | | | | | [address] | | | | | | | [...]
--- OUTSIDE RECORDS SUMMARY | ~2020-09-11 | XMS | Encounter Summary ---
Demographics + + + | Address | [address] | | | [place] [address] | + + + | Home Phone [...] [place] | | | | | [address] | | + + + + + Care Team Providers + +------+ + | Care Construction Pit Worker Name | Role | Phone | [...] | | [address] | [address]ha López [place], | | | | | [address] [place] | [place] [address] | | | | | [place] | [phone] | | | | | [address] | | | | | | [phone] | | | +--------+ + + + [...] | | | | | | a Beverly-Lupe catheter | | | | | | [...] | | | | placement of a Beverly-Lupe | | | | | | catheter. CHEST, | | | | | | SINGLE AP PORTABLE: | | | | | | 03-31-93 AT 1000 HOURS | | | | | | FINDINGS: Since the | | | | | | prior study, the | | | | | | Beverly-Lupe catheter has | | | | | [...] IMPRESSION: | | | | | | Beverly-Lupe catheter | | | | | | [...] The | | | | | | Beverly-Lupe catheter | | | | | | [...] and | | | | | | Beverly-Lupe catheter | | | | | | [...] endotracheal | | | | | | tube,Beverly-Lupe catheter | | | | | | [...] + + + + | [facility] | [address] | [place] [address] | | | PATHOLOGY | [place] | | | + + + + + documented in this encounter Visit Diagnoses Not on filedocumented in this encounter"
--- OUTSIDE RECORDS SUMMARY | ~2020-09-11 | XMS | Encounter Summary ---
Demographics + + + | Address | [address] | | | [place] [address] | + + + | Home Phone [...] Providers + +------+ + | Care Molder Vacuum Name | Role | Phone | + +------+ + | Rahul Silva MD | PCP | | + +------+ + Encounter Details +--------+ + + + + | Date | Type | Department | Care Team | Description | +--------+ + + + + | 10/03/ | Orders Only | [facility] | Conversion | | | 2015 | | [place] | Transaction, | | | | | [address] | Provider Unknown | | | | | [address] [place], [place] | [phone] | | | | | [address] | (Fax) | | | | | [phone] | | | +--------+ + + + [...] | | | | | | [place] [address] | | | | | | [phone] | | | | | | | [...] | | | Visit | | [address] [place], [place] | | | | | | [address] | | | | | | | [...] | | | LAB | | | [place] | | | | | + + [...]
--- OUTSIDE RECORDS SUMMARY | ~2020-09-11 | XMS | Encounter Summary ---
Demographics + + + | Address | [address] | | | [place] [address] | + + + | Home Phone [...] Team Providers + +------+ + | Care Vortex Operator Name | Role | Phone | [...] [address] | | | | | [place], [place] | [place], [place] | | | | | [address] | [address] | | | | | [phone] | [phone] | | | | | | | [...] | | | | | | [place] [address] | | | | | | [phone] | | | | | | | [...] | | | Visit | | [address] [place], [place] | | | | | | [address] | | | | | | | [...]
--- OUTSIDE RECORDS SUMMARY | ~2020-09-11 | XMS | Encounter Summary ---
Demographics + + + | Address | [address] | | | [place] [address] | + + + | Home Phone [...] Providers + +------+ + | Care Water Supply Engineer Name | Role | Phone | [...] | | | hip | [address] | | | | | | fracture, | [place] | | | | | | initial | [place], [place] | | | | | | encounter | [phone] | | | | | | ([facility]) | Phone: | | | | | | Status post | [phone] | | | | | | above knee | Fax: | | | | | | amputation | [phone] | | | | | | of [...] | | | | | | | ([facility]) | | | | | | | | | | | | | | | | | +--------+--------+ + + + + Encounter Details +--------+ + + + + | Date | Type | Department | Care Team | Description | +--------+ + + + + | 08/03/ | Hospital | [facility] | Jose Andrade | Laceration of left | | 2016 - | Encounter | MED CTR SURGICAL | MD Mehrdad [address] | ear, initial | | | | [address] [place] | [address] [place] | encounter (Primary | | 08/05/ | | [place] [address] | [place] [address] | Dx); Closed left hip | | 2015 | | [phone] | [phone] | fracture, initial | | | | | | encounter ([facility]); | | | | | Linda Steiner, | Fall, initial | | | | | DO [address] | encounter; Acute | | | | | [address] [place], | pain; Hyperkalemia; | | | | | [place] [address] | CKD (chronic kidney | | | | | [phone] | disease), | | | | | [...] | | | | | | type ([facility]); Insulin | | | | | | dependent type 2 | | | | | | diabetes mellitus, | | | | | | uncontrolled (HCC); | | | | | | Intertrochanteric | | | | | | fracture of left | | | | | | hip, closed, initial | | | | | | encounter ([facility]); | | | | | | PAOLO on CPAP; Status | | | | | | post fall; Status | | | | | | 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 | | | | | | lower extremity | | | | | | ([facility]); Phantom limb | | | | | | pain ([facility]) | +--------+ + + [...] Bolivar MD - 08/05/2016 1:07 PM PDT [facility] DISCHARGE SUMMARY Pt. Name/Age/: Porfirio Zavala [...] mg by mouth nightly. aka: LIPITOR Cholecalciferol 09938 units Caps Take 50,000 Units by mouth [...] information: [address] [place] [id number] PENDING RESULTS: HOSPITAL COURSE: Please refer to [...] by: Petey Bolivar MD, 08/05/2016 13:07 [facility] Portions of this chart may have been created with [employer] voice recognition software. Occasi onal wrong-word or sound-alike substitutions may have occurred due to the inherent vanegas itations of voice recognition software. Please read the chart carefully and recognize, using context, where these substitutions have occurred documented in this encounter Discharge Instructions Instructions Maritza Devries RN - 08/05/2016Please call Dr. Tobar at [phone] for an y questions or concerns regarding [...] 0 | | | | (VITAMIN D-3) [address] | mouth Every 3 | | | [...] might be differ ent from the original. [facility] Hospitalist Progress Note Porfirio Zavala is [...] Clear Clear PH UA 5.0 5.0-8.0 Specific [place] 1.015 1.001-1.030 PROTEIN UA 100 mg/dL (A) [...] as outlined above. Sonu Michel 08/04/2016 11:33 [facility] Yuriy Farrell RRT - 08/04/2016 8:42 AM [...] might be different f rom the original. [facility] HISTORY & PHYSICAL Patient: Porfirio Zavala : 1940: Age: 76 y.o. MedRec: [id number] PCP: Hardik Coyne MD Admission date: 08/03/2016 [...] phantom pain who was transferred here from [facility] emergency room with above presentation. Patient was accepted for transfer by Dr. Mondragon of ENT and Dr. Robison of orthopedic surgery as patient's daughter requested high level of care for plastic surgery consultation and repair of his left ear. According to estella antunez he was bending over to sisal picker something up while sitting in his [...] much distress. Workup on blood work at [facility] showed mildly elevated potassium at 5.4, but [...] Charlotte Zavala, her contact numbers are: (h) [phone] & (c) [phone] ALLERGIES: No Known Allergies VITAL SIGNS: Temp: [...] CKTOTAL No results for input(s): PHART, PO2ART, GVG0VDI, YBC9CKY, BEART, H4KPVDIO in the last 168 h ours. No results for input(s): SPECSOURCE, PHPOCB, HCO3, TCO2, BEART, BE, HPWS7SFX in the last 16 8 hours. Invalid input(s): PPJSG2MB, SILF3VA (dot meylab) Xray Results: No results found. I reviewed imaging done at [facility]: CXR showed no acute disease. CT pelvis [...] EKG Results (I reviewed EKGs) 1st at [facility]: Sinus bradycardia, rate 59 bpm, otherwi se normal EKG. 2nd at [facility]: Normal sinus rhythm, rate 78 bpm, otherwise [...] by: Linda Steiner DO 08/03/2016 23:57 [facility] Dot phrase reference: VSHOSP (VS in table, last 24 hours) MEYLAB (various labs to pull in) DT (date and time) LABRCNTIP[K:3,Na:3 (last 3 sets of labs using potassium and sodium as examples) HGB HCT PLT INR GLU POCGLU Na K BUN CREA, CALCIUM TROPONINI BNP DIGOXIN Portions of this chart may have been created with [employer] voice recognition software. Occasi onal wrong-word or sound-alike substitutions may have occurred due to the inherent vanegas itations of voice recognition software. Please read the chart carefully and recognize, using context, where these substitutions have occurred documented in this encounter Consult Notes Adonay Robison MD - 08/04/2016 10:15 AM PDT [place] [address] CONSULTATION ADONAY ROBISON MD Patient: PORFIRIO ZAVALA Admitting: LINDA STEINER MR #: [id number] LOC: PT TYPE: Adm Date: 08/03/2016 : 1940 DATE OF CONSULTATION AND DATE OF DICTATION: 08/04/2016 IDENTIFICATION: Porfirio Zavala is a 76-year-old male who resides with his daughter in the [facility]. CHIEF COMPLAINT: Fall off wheelchair with [...] while at home, necessitating transfe r to [facility] in [place] for evaluation. He was found to have a left ear l aceration, a superficial skin tear on the left wrist and on CT scan was noted to have a no ndisplaced unicortical left hip intertrochanteric fracture. He also was found to have an e levated potassium of 5.6 and the decision was made to transfer the patient to [facility] in [place] for a more in depth evaluation and appropriate care, including re pair of the ear by ENT surgeon, Dr. Tobar. Consequently, the patient was transferred to [facility] to [facility] where indeed, Dr. Tobar came and repaired his ear laceration in the emergency room. [facility] and orthopedic consultation was requested. [...] could be obtained with an orthopedist in [place], or he may c ertainly come back to my office for this followup as well. I will follow the patient with you as needed. ADONAY ROBISON MD Dictated by ADONAY ROBISON MD 08/04/2016 10:15:13 Transcribed on 08/04/2016 10:52:[address] art# [id number] Confirmation #: [id number] cc: HARDIK COYNE MD donay Robison MD [...] might be differe nt from the original. [facility] Emergency Department Encounter Note [address] [place] [address] PCP:Hardik Coyne MD [phone] CHIEF COMPLAINT: Chief Complaint Patient presents with Head Injury Ear Laceration ED Room: ED14/ED14 HPI Porfirio Zavala is a 76 y.o. male who presents to the Emergency Department Patient presents as a referral from [facility]. He's been accepted by Dr. tobar of ENT and Dr. Robison of orthopedic surgery. He has a lvkjg-zbx-uvfp amputation and fell out of his wheelchair earlier today. He struck his left hip and left side of his head against the ground. His family requested he be coker sferred to this hospital for plastic surgery consultation and repair of his left ear. I acc epted call from [facility] emergency department they confirmed the story dated imaging he has a left intercurrent trochanteric hip fracture as well as a negative CT scan of the head . He was noted to be mildly hyperkalemic at [facility]. On arrival he complains of left [...] were reviewed along with EMS notes and snf record s if applicable. (See chart for details) Medications and Allergy list reviewed. Nurses note and old records were reviewed The patient was seen and examined, For persistent pain he receives IV narcotic pain medication morphine 3 doses. Imaging from [facility] reviewed no skull fracture or intracranial bleed [...] 2. Closed left hip fracture, initial encounter ([facility]) S72.002A 820.8 3. Fall, initial encounter W19.XXXA E888.9 4. Acute pain R52 338.19 5. Hyperkalemia E87.5 276.7 6. CKD (chronic kidney disease), unspecified stage N18.9 585.9 7. Intractable pain R52 780.96 Administrations This Visit albuterol 2.5 mg/3 mL nebulizer solution 5 mg Admin Date Action Dose Route Administered By 08/03/2016 Given 5 mg Nebulization Agustin Gordon, STOPPER SETTER bacitracin topical ointment Admin Date Action Dose [...] Given 4 mg Intravenous Jose Calhoun RN kjsddmb-uzsjhmmlee-jxwpfoxtt pertussis (ADACEL, Tdap) vaccine injection 0.5 mL [...] i nstructions. lan of [facility] Brie Bauer, STOPPER SETTER - 08/05/2016 12:55 PM PDTProblem: Patient Care [...] clear and diminished. Anticipate discharge. lan of [facility] - Lyn Goldsmith, PT - 08/05/2016 12:10 [...] caprice pain who was transferred here from [facility] emergency room d/t ear laceration that needs [...] she will need to come back to [place] and sisal picker pt's old wheelchair that she is [...] from multiple contributors. Transfers Bed-Chair, Level of Warren: contact guard assist Chair-Bed, Level of Warren: contact guard assist Qet-Uzcfy-Wku, Assistive Device: none Impairments: strength decreased, impaired balance, pain Bed Mobility Supine to Sit, Level of Warren: independent Sit to Supine, Level of Warren: independent Wheelchair Mobility Pt able to demo safe and independent ability to self propel manual wheelchair in room and hallway. ROM B UEs and R LE grossly WFL; L LE not tested due to recent fracture. Strength B UEs and R LE grossly WFL; L LE not tested due to recent fracture. STG GOALS Warren Level: minimum assist (75% patient effort) Assistive Device: none Time to Achieve: 2 days Goal Status: met Transfer Training Goal, Activity Type: bed to chair /chair to bed Warren Level: minimum assist (75% patient effort) Assistive [...] S72.002A Closed left hip fracture, initial encounter ([facility]) W19.XXXA Fall, initial encounter R52 Acute pain E87.5 Hyperkalemia N18.9 CKD (chronic kidney disease), unspecified stage R52 Intractable pain E87.5 Acute hyperkalemia N18.3 Chronic kidney disease (CKD), stage 3 (moderate) J44.9 Chronic obstructive pulmonary disease, unspecified COPD type ([facility]) E11.65, Z79.4 Insulin dependent type 2 diabetes mellitus, uncontrolled ([facility]) S72.142A Intertrochanteric fracture of left hip, closed, initial encounter ([facility]) G47.33 PAOLO on CPAP Z91.89 Status post fall Z89.612 Status post above knee amputation of left lower extremity ([facility]) G54.7 Phantom limb pain ([facility]) Date of Onset: Past Medical History Diagnosis Date PAOLO (obstructive sleep apnea) On CPAP plus 4 L of oxygen at night COPD (chronic obstructive pulmonary disease) ([facility]) Diabetes mellitus, type II ([facility]) Constipation Epigastric pain Stump pain ([facility]) Renal insufficiency Obesity Iron deficiency anemia Hypertension Dyslipidemia Lower extremity embolism ([facility]) Phantom pain following amputation of lower limb ([facility]) Pain of amputation stump of left lower extremity ([facility]) Past Surgical History Procedure Laterality Date [...] phantom pain who was transferred here from [facility] emergency room d/t ear laceration that needs [...] Porfirio Zavala 3 times/wk [facility] discharged from the hospital. [...] to f/u with [facility] next Friday in [place] to have sutures mello alexus. Skin tear/wound [...] S72.002A Closed left hip fracture, initial encounter ([facility]) W19.XXXA Fall, initial encounter R52 Acute pain E87.5 Hyperkalemia N18.9 CKD (chronic kidney disease), unspecified stage R52 Intractable pain E87.5 Acute hyperkalemia N18.3 Chronic kidney disease (CKD), stage 3 (moderate) J44.9 Chronic obstructive pulmonary disease, unspecified COPD type ([facility]) E11.65, Z79.4 Insulin dependent type 2 diabetes mellitus, uncontrolled ([facility]) S72.142A Intertrochanteric fracture of left hip, closed, initial encounter ([facility]) G47.33 PAOLO on CPAP Z91.89 Status post fall Z89.612 Status post above knee amputation of left lower extremity ([facility]) G54.7 Phantom limb pain ([facility]) Date of Onset: Past Medical History Diagnosis Date PAOLO (obstructive sleep apnea) On CPAP plus 4 L of oxygen at night COPD (chronic obstructive pulmonary disease) ([facility]) Diabetes mellitus, type II ([facility]) Constipation Epigastric pain Stump pain (HCC) [...] phantom pain who was transferred here from [facility] emergency room d/t ea r laceration that [...] from multiple contributors. Transfers Bed-Chair, Level of Warren: minimum assist (75% patient effort), verbal cues required Chair-Bed, Level of Warren: minimum assist (75% patient effort), verbal cues required Xiz-Wtjuf-Klq, Assistive Device: none Impairments: strength decreased, impaired balance, pain ROM B UEs and R LE grossly WFL; L LE not tested due to recent fracture. Strength B UEs and R LE grossly WFL; L LE not tested due to recent fracture. STG GOALS Warren Level: minimum assist (75% patient effort) Assistive Device: none Time to Achieve: 2 days Goal Status: new Transfer Training Goal, Activity Type: bed to chair /chair to bed Warren Level: minimum assist (75% patient effort) Assistive [...] PT eval completed. Case d/w RN and patient case coordinator. Contacted wheelchair r ep (Petey) who says [...] patient safely before discharging patient. Case tana ibry is working on getting patient new wheel [...] safe manner Outcome: Unchanged Patient lives in [place], [place] with his daughter Charlotte. Charlotte states [...] This CM called [facility] in [place] and gave sterilization technician , Argenis, the story about this patient. [...] Daughter will be here mid morning to sisal picker patient. She states that if a manual w/c canno t be obtained, she will get one Friday at [facility] and "I will just be [...] face sheet to be fa xed to [phone]. Faxed face sheet. Electronically signed by: POLI [...] be removed on 08/12 phylicia Muhammad in [place]. Pt is alert and oriented, forgetful at [...] Tobar MD - 08/03/2016 10:51 PM PDT [address] [address] OPERATIVE REPORT STEVEN TOBAR MD Patient: PORFIRIO ZAVALA Admitting: LINDA Salgado OBDULIA MR #: [id number] LOC: PT TYPE: Adm Date: 08/03/2016 : [...] also hurt the left hip, and in [place] the laceration was felt to be too complex to repair in the emergency room by the emergency room physician . Also, the patient with complaint of the left hip was noted to have an intertrochanteric fracture, but nondisplaced. The patient was accepted at [facility] fo r repair of the laceration [...] the laceration, p art of it being jjmndab-mee-pxpqesu the root of the ear, was 5.5 [...] his could be carried out down in [place] with Dr. Muhammad to save a long trip up to this area a week from Friday when they should be removed. They can call our office and arrange ments will be made for removal of the sutures if not able to do it down in the [facility]. The estimated blood loss from the current part was around 1-2 mL. The prognosis of th is area immediate and remote is good. STEVEN TOBAR MD Dictated by STEVEN TOBAR MD 08/03/2016 22:51:04 Transcribed on 08/04/2016 05:51:45 by blessing job# [id number] Confirmation #: [id number] cc: HARDIK COYNE MD D Triage Notes - Jose Calhoun RN - 08/03/2016 8:05 PM PDTPatient transferred [facility] [place] for and ear laceration that needs to [...] | | 2019 | Visit | | UROLOGY NURSE [address] | | | | | | [address] [place], | | | | | | [place] [address] | | | | | | [phone] | | | | | | | [...] | | | Visit | | [address], [place] | | | | | | [address] | | | | | | | [...] until | | | | | encounter (HCC) | 08/04/2016 | | | | | Status post above | | | | | | knee amputation of | | | | | | left lower extremity | | | | | | ([facility]) | | + +------+--------+ + + | DME: Walker | DME | Routin | Closed left hip | Ordered: 08/05/2016 | | | | e | fracture, initial | | | | | | encounter ([facility]) | | | | | | Status post above | | | | | | knee amputation of | | | | | | left lower extremity | | | | | | ([facility]) | | + +------+--------+ [...] + | [facility] | [address] | [place] | [phone] | | [facility] | | [address] | | | - LABORATORY | | [...] mL/min/1.73m2 | [facility] | | | Croatian | RATE,ESTIMATED | | MEDICAL | | | | mL/min/1.26v8Xmmm than | | CENTER - | | [...] | 8.3 | 8.3 - 10.5 | [facility] | | | | | mg/dL | [facility] | | | | | | MEDICAL | | | | | | CENTER - | | | | | | LABORATORY | | + + + + + + | Albumin | 2.8 (L) | 3.2 - 5.0 g/dL | [facility] | | | | | | [facility] [...] [address] | [place] | [phone] | | [facility] | | [address] | | | - LABORATORY | | [...] | | Neutrophils | | K/uL | [facility] | [...] + | [facility] | [address] | [place] | [phone] | | [facility] | | [address] | | | - LABORATORY | | | | + + + + + Phosphorus (08/05/2016 6:44 AM PDT) + +-------+ + + + | Component | Value | Ref Range | Performed | Pathologist | | | | | At | Signature | + +-------+ + + + | Phosphorus | 4.2 | 2.5 - 4.6 mg/dL | [facility] | | | | [...] [address] | [place] | [phone] | | [facility] | | [address] | | | - LABORATORY | | [...] [address] | [place] | [phone] | | [facility] | | [address] | | | - LABORATORY | | | | + + + + + POC Glucose (08/04/2016 9:18 PM PDT) + +---------+ + + + | Component | Value | Ref Range | Performed | Pathologist | | | | | At | Signature | + +---------+ + + + | Glucose, | 182 (H) | 70 - 150 mg/dL | [facility] | | | POC [...] [address] | [place] | [phone] | | [facility] | | [address] | | | - LABORATORY | | [...] [address] | [place] | [phone] | | [facility] | | [address] | | | - LABORATORY | | [...] [address] | [place] | [phone] | | [facility] | | [address] | | | - LABORATORY | | [...] [address] | [place] | [phone] | | [facility] | | [address] | | | - LABORATORY | | [...] [address] | [place] | [phone] | | [facility] | | [address] | | | - LABORATORY | | [...] | Basophils | | K/uL | [facility] | [...] [address] | [place] | [phone] | | [facility] | | [address] | | | - LABORATORY | | [...] (H) | 7 - 18 mg/dL | [facility] | | | | | | [facility] | | | | | | MEDICAL | | | | | | CENTER - | | | | | | LABORATORY | | + + + + + + | Creatinine | 2.09 (H) | 0.60 - 1.30 | [facility] | | | | | mg/dL | [facility] | | | | | | MEDICAL | | | | | | CENTER - | | | | | | LABORATORY | | + + + + + + | eGFR, | 31 (L)Comment: | >=60 | [facility] | | | non- | GLOMERULAR FILTRATION | mL/min/1.73m2 | [facility] | | | Croatian | RATE,ESTIMATED | | MEDICAL | | | | mL/min/1.72h6Hyoe than | | CENTER - | | [...] [address] | [place] | [phone] | | [facility] | | [address] | | | - LABORATORY | | [...] Urine | | Yellow, Straw | [facility] | [...] - 1.030 | [facility] | | | [place], | | | [facility] | | [...] | | Cells, | | | [facility] | | | Urine | | | [...] + | [facility] | [address] | [place] | [phone] | | [facility] | | [address] | | | - LABORATORY | | [...] | | | | AYAH RON MD ([id number]) | | | | | | on [...] | | | Cells | | | [facility] | | | | | | MEDICAL | | | | | | CENTER - | | | | | | LABORATORY | | + + + + + + | Red Blood | 3.65 (L) | 4.30 - 5.70 | [facility] | | | Cells | | M/uL | [facility] | | | | | | MEDICAL | | | | | | CENTER - | | | | | | LABORATORY | | + + + + + + | Hemoglobin | 11.1 (L) | 13.5 - 18.0 | [facility] | | | | | g/dL | [facility] | | | | [...] + | [facility] | [address] | [place] | [phone] | | [facility] | | [address] | | | - LABORATORY | | [...] + | [facility] | [address] | [place] | [phone] | | [facility] | | [address] | | | - LABORATORY | | [...] + | [facility] | [address] | [place] | [phone] | | [facility] | | [address] | | | - LABORATORY | | | | + + + + + Extra Lavender Top Tube (08/03/2016 9:07 PM PDT) + +-------+ + + + | Component | Value | Ref Range | Performed | Pathologist | | | | | At | Signature | + +-------+ + + + | Extra | Done | | [facility] | | | Lavender | | | [...] [address] | [place] | [phone] | | [facility] | | [address] | | | - LABORATORY | | [...] + | [facility] | [address] | [place] | [phone] | | [facility] | | [address] | | | - LABORATORY | | [...] | | | | mmol/L | [facility] | | | | [...] mL/min/1.73m2 | [facility] | | | Croatian | RATE,ESTIMATED | | MEDICAL | | | | mL/min/1.38e6Qmdw than | | CENTER - | | [...] ST. | [address] | [place], [place] | [phone] | | [facility] | | [address] | | | - LABORATORY | | [...] Insulin dependent type 2 diabetes mellitus, uncontrolled ([facility]) Type II or unspecified | | type diabetes mellitus without mention of complication, uncontrolled | + + | PAOLO on CPAP Obstructive sleep apnea (adult) (pediatric) | + + | Status post fall Unspecified fall | + + | Status post above knee amputation of left lower extremity | + + | Phantom limb pain ([facility]) Phantom limb (syndrome) | + + documented [...] | | | | | | | 9699-4105 Use NIGHT DOSE for | | | | | | | doses scheduled: HS, 3AM, | | | | | | | Nighttime 6718-4252, | | | | | | + [...] | +---+---+ + +-------+ +---------+---+ + | vmhexdx-ycvusliwcp-hlwssbeqs | Given | 08/03/20 | 0.5 mLs [...]
--- OUTSIDE RECORDS SUMMARY | ~2020-09-11 | XMS | Encounter Summary ---
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 Sri negative two days | | | ago | + + + Encounter Details +--------+ + + + + | Date | Type | Department | Care Team | Description | +--------+ + + + + | 08/24/ | Hospital | [facility] | Sheyla Sevilla, | ESRD needing | | 2020 - | Encounter | [facility] | MD [address] | dialysis (HCC) | | | | CARE FLOOR [address] | [place] [address] | (Primary Dx); | | 09/01/ | | [address] | [phone] | Hypervolemia, | | 2019 | | [place], [place] | | unspecified | | | | [address] | Dagoberto Desai, DO [address] | hypervolemia type; | | | | [phone] | [address] | NSTEMI (non-ST | | | | | [place] [address] | elevated myocardial | | | | | [phone] | infarction) ([facility]); | | | | | | Anemia of chronic | | | | | [address] | renal failure, | | | | | MD Jannie Nixon | unspecified CKD | | | | | BLVD [place], [place] | stage; Congestive | | | | | [address] | heart failure, | | | | | | unspecified HF | | | | | Alie Quick MD | chronicity, | | | | | [address] | unspecified heart | | | | | [place] [address] | failure type (HCC); | | | | | [phone] | CKD (chronic kidney | | | | | | disease) stage 5, | | | | | Edmund Dalton MD | GFR less than 15 | | | | | [address] | ml/min (HCC); Acute | | | | | [place] [address] | on chronic systolic | | | | | [phone] | congestive heart | | | | [...] | | | | | with hypoxia ([facility]); | | | | | | Hemoptysis; [...] Shortness of Breath (chf exacerbation, sent from [facility]. Covid negative two days ago ) Hospital Course: Mr. Andujar is a 80-year-old male with a history of COPD on home oxygen of up to 3 L at home , tobacco use disorder in remission (74-asgr-cmvd smoking history, quit 2 weeks ago), type I I DM, HLD, HTN, history of DVT, history of LLE amputation with phantom limb pain, PAOLO on BiP AP, CVA, ESRD on HD, who originally presented to an outside hospital for shortness of breath , found to be in CHF exacerbation, with work-up revealing NSTEMI and transferred here for [facility] level of care. EKG at outside hospital [...] be having their oncology care/follow up in [place] and for thi s reason Oncology, [...] -follow up with radiation/oncology, Dr. Romo in [place], referral placed NSTEMI Presented with troponin [...] up: Jessenia Bergman [address] [place] [address] Schedule an appointment as soon as possible for a visit in 3 days Caio Burt MD [address] [facility] [address] [facility] [address] Schedule an appointment as soon as possible for a visit in 2 weeks call them if they have not called you Farrukh Acuna MD [address] [facility] [address] [place] [address] keep dialysis appointments [facility] [address] [address] [facility] [address] Go on 09/01/2020 Dialysis every Friday, and Friday at 230pm. First day is 09/01/20 at 130pm for paperwork. Stuart Romo MD [address] [facility] [address] In 2 weeks oncology follow up Pamjaylen Woodberg, DO [address] [facility] [address] [facility] [address] In 2 weeks ENT follow up Current [...] TRELEGY ELLIPTA 100-62.5-25 mcg/puff inhaler Generic drug: zpukhkwdvmf-ruleyrqkyxer-jdwmtsdnkd inhale 1 puff by mouth once daily [...] o vernight treatments. A trained nurse or mechanical technician connects you to the dialysis machine. [...] Make sure you tell your nurse or mechanical technician if you have any of these symptoms. Some people are able to learn to use a dialysis at home. Home dialysis lets you schedule treatments when it's most convenient. You may have more frequent treatments, but for shorte r periods of time. You may also do overnight treatments. Get immediate medical help or call your doctor, nurse or emission technician if you have an y of these symptoms after treatment: Chest or back pain Tiredness (fatigue) Bleeding from the needle site Shortness of breath Fever or chills Headache or lightheadedness Nausea or vomiting Itching Muscle cramps Pain, warmth, or redness at your access site Inability to feel your blood flow (called a thrill) in your AV fistula or graft Sandag last reviewed this educational content on 10/01/201919993810-6758 [employer]. [address] [place] [address], [place] [address]. All righ ts reserved. This information is not intended as a substitute for professional medical care. Always follow your healthcare professional's instructions. What is Coronavirus? The Novel Coronavirus 2019 (COVID-19) is a new virus strain that is spread mainly from pers la-cp-jnlglq through respiratory droplets when an infected person [...] are not available, use an alcohol-based hand forestry professor with at least 60 % alcohol covering [...] and need to call 911, notify the grease refiner operator that you have or think you [...] COVID-19 symptoms, residents in nursing facilities or care home communities or home health, or those who [...] or preparing your food. ? Use hand forestry professor if soap and water are not available. [...] with soap and water or in the automobile damage field appraiser/washer. ? Call ahead before visiting your doctor. [...] local public health website. CDC: COVID-19: https://www.cdc.gov/coronavirus/2019-ncov/index.html Anton Coronavirus Advisory: https://www.roscoe.org/qndzmprm-kjw-niflszvq/coron avirus-advisory Virtual Visits Available https://virtual.Movetis.[employer]/ . Local Drug Take Back Locations, Pain [...] proper disposal of unused medications, please visit: http://www.Right Relevances.org/, https://apps.deadiversion.S[employer].gov/pubdispsea [facility]/spring/main?execution=e1s3 ? Activities of daily living (ADL) are routine activities people do every day without migel tance. Non-pharmacological interventions can be useful and incorporated to help with activit ies of daily living. These include, but are not limited to: Repositioning, cold/warm иван ses, massage, decreasing environmental stimulation (decrease lighting, decrease noise), musi c, aromatherapy. AUGUST 2018 | [facility] Pub [phone] Location Address Phone # Take Back Hours Accepts Does NOT Accept [facility] [address] [place] [address] [phone] Lobby hours: M-F: 8am-5pm Sat-Sun: See their Facebook page for dates (every few weeks) - Pills: tablets, capsules (in cluding controlled substances) - Liquids - Topical lotions, gels, creams, ointments - Sharps, syringes (including insulin) - [facility] [address] [place] [address] [phone] Lobby hours: M-F: 8am-12pm, 1pm-5pm (closed 12-1pm) Sat-Sun: CLOSED - Pills: tablets, capsules (including controlled substances) - Liquids - Topical lotions, gels, creams, ointments - Sharps, syringes (including insulin) - Inhalers [place] [employer] [facility] [address] [place] [address] [phone] Lobby hours: M-F: 8:30am-4:30pm Sat-Sun: CLOSED - Pills: tablets, capsules (including controlled substances) - Patches - Liquids - Topical lotions, gels, creams, ointments - Sharps, syringes (including insulin) - Inhalers [place] [employer] [facility] [address] [place], [place] [id number] [phone] Lobby hours: M-F: 8am-5pm Sat-Sun: CLOSED - Pills: tablets, capsules (including controlled substances) - Liquids - Topical lotions, gels, creams, ointments - Sharps, syringes (including insulin) - Inhalers [id number]) [address] [place] [address] [phone] Pharmacy hours: M-F: 9am-9pm Sat: 8am-9pm Sun: 9am-9pm - Pills: tablets, capsules (including controlled substances) - Liquids - Topical lotions, gels, creams, ointments - Sharps, syringes (including insulin) - Inhalers [employer] (local branch of [employer]) [address] [place] [address] [phone] Call to schedule belt picker; only for current residential customers - Sharps, [...] | | | | | | | ([facility]), Secondary | | | | [...] + +---------+ + + | ARABELLAJuan PabloUS ECHEVERRIAAR | Inject 25 Units | | 0 [...] | | | | | | ml/min ([facility]) | | | | | [...] | | | | | | ml/min ([facility]) | | | | | | + + + +---------+ + + | TRELEGY ELLIPTA | inhale 1 puff by | | 0 | 02/15/20 | | | 100-62.5-25 MCG/INH | mouth once daily | | | 20 | | | inhaler | | | [...] D/w patient already scheduled for hd at [facility], or at 1:30 pm, will go [...] Gandhi MD - 09/01/2020 6:48 AM PDT [facility] Service: Cardiology Progress Note Name of Structural Steel Worker Apprentice: Lakeisha Landry MD I have seen the [...] Nightly, Dagoberto Lloyd, DO, 80 mg at 2120 budesonide-formoterol (SYMBICORT) 160-4.5 mcg/puff inhaler 2 puff, [...] (pen) 13 Units, 13 Units, Subcutaneous, N elizabethtlcharo, Justin Quick MD, 13 Units at 08/31/202125 insulin lispro (humaLOG, ADMELOG) injection (vial) 0-6 Units, 0-6 Units, Subcutaneous, 4x Daily WC and HS, [facility], DO, 1 Units at 08/31/202125 isosorbide mononitrate [...] Farrukh Acuna MD, 2.5 mg at 08/31/20 212 nitroglycerin (NITROSTAT) SL tablet 0.4 mg, 0.4 mg, Sublingual, Q5 Min PRN, [facility], 0.4 mg at 08/29/20 2125 ondansetron (ZOFRAN) injection 4-8 mg, 4-8 mg, Intravenous, Q6H PRN, [facility], 4 mg at 08/30/20 1423 oxyCODONE (ROXICODONE) tablet 15 mg, 15 mg, Oral, Q4H PRN, [facility] DO, 15 mg at 2213 polyethylene glycol (MIRALAX) powder 17 g, 17 g, Oral, Daily, [facility] DO, 17 g at 08/31/20 1000 promethazine [...] is 80 y.o. with 1. Non-ST elevation LA continues to deny any anginal symptoms. 2. [...] Linares MD - 08/31/2020 4:16 PM PDT [facility] Service: Hospitalist Progress Note Pt: Porfirio Morris Con AGE/SEX: 80 y.o. male ROOM: 4439/4439-01 : 1940 PCP: Jessenia Bergman ADMIT DATE: 08/24/2020 TODAY'S DATE: 08/31/2020 Hospital Day/Hospital Course: LOS: 6 days Mr. Andujar is a 80-year-old male with a history of COPD on home oxygen of up to 3 L at home , tobacco use disorder in remission (16-vzuf-dbdh smoking history, quit 2 weeks ago), type I I DM, HLD, HTN, history of DVT, history of LLE amputation with phantom limb pain, PAOLO on BiP AP, CVA, ESRD on HD, who originally presented to an outside hospital for shortness of breath , found to be in CHF exacerbation, with work-up revealing NSTEMI and transferred here for [facility] level of care. EKG at outside hospital [...] 2302 INR 1.1 1.2 IMAGING: Reviewed in [facility], no new results. PROBLEM LIST Principal [...] purp ose koum, Farrukh Rubio MD - 1 1:30 PM PDT Hospital [...] "Shortness of Breath (chf exacerbation, sent from [facility]. Sri ortega two days ago ) Recommendations: There is no acute SALES TEAM MANAGER indication Plan it for MWF, Heparin-free again [...] Sanchez DO - 08/31/2020 7:01 AM PDT [facility] Service: Otolaryngology (ENT) Progress Note Hospital Day: LOS: 6 days Post-Op Day: * No surgery found * SUBJECTIVE Patient Summary: The patient is80 y.o.malewith significant past medical history of Hypertension, PVD, COPD, PAOLO, Diabetes type II, history of CVA, extensive tobacco use, E SRD on HDwho presented to [facility] secondary to shortness of breath and CHF [...] Code Pam Barba DO 08/31/2020 Ilsa Christie, SALES TEAM MANAGER - 08/30/2020 7:11 PM PDTRT spoke to patient regarding when he would like to go on the V60 BiPAP. Patient stated that he did not want to wear the mask or use the machine.El ectronically signed by Libertad Carroll, SALES TEAM MANAGER at 08/30/2020 7:17 PM DanielPam Carlota, DO - 08/30/2020 1:38 PM PDT [facility] Service: Otolaryngology (ENT) Progress Note Hospital Day: LOS: 5 days Post-Op Day: * No surgery found * SUBJECTIVE Patient Summary: The patient is 80 y.o. male with significant past medical history of Hypertension, PVD, COPD, PAOLO, Diabetes type II, history of CVA, extensive tobacco use, ESRD on HD who presented to [facility] secondary to shortness of breath and CHF [...] dysphagia or hoarseness. The patient is on infusion rn jimmy anticoagulation. CTA of the chest was [...] to h is most recent history of LA. -Plan for biopsy tomorrow a.m. This was [...] might be different from the origi nal. [facility] Service: Hospitalist Progress Note Pt: Porfirio Andujar AGE/SEX: 80 y.o. male ROOM: 4439/4439-01 : 1940 PCP: Jessenia Bergman ADMIT DATE: 08/24/2020 TODAY'S DATE: 08/30/2020 Hospital Day/Hospital Course: LOS: 5 days Mr. Andujar is a 80-year-old male with a history of COPD on home oxygen of up to 3 L at home , tobacco use disorder in remission (86-lajd-uvqn smoking history, quit 2 weeks ago), type I I DM, HLD, HTN, history of DVT, history of LLE amputation with phantom limb pain, PAOLO on BiP AP, CVA, ESRD on HD, who originally presented to an outside hospital for shortness of breath , found to be in CHF exacerbation, with work-up revealing NSTEMI and transferred here for [facility] level of care. EKG at outside hospital [...] Landry MD - 08/30/2020 6:22 AM PDT [facility] Service: Cardiology Progress Note Name of Structural Steel Worker Apprentice: Lakeisha Landry MD I have seen the [...] Dagoberto Lloyd, DO, 2 puff at 08/29/20 2118 clopidogrel (PLAVIX) tablet 75 mg, 75 mg, [...] (pen) 13 Units, 13 Units, Subcutaneous, N Justin severino MD insulin lispro (humaLOG, ADMELOG) injection (vial) 0-6 Units, 0-6 Units, Subcutaneous, 4x Daily WC and HS, [facility], 1 Units at 08/29/20 2217 isosorbide mononitrate [...] mg, 0.4 mg, Sublingual, Q5 Min PRN, [facility] , , 0.4 mg at 08/29/20 2125 ondansetron (ZOFRAN) injection 4-8 mg, 4-8 mg, Intravenous, Q6H PRN, [facility], 8 mg at 08/27/20 1223 oxyCODONE (ROXICODONE) tablet 15 mg, 15 mg, Oral, Q4H PRN, [facility], 15 mg at 0227 polyethylene glycol (MIRALAX) powder 17 g, 17 g, Oral, Daily, [facility], DO, 17 g at 08/29/20 0726 promethazine (PHENERGAN) [...] is 80 y.o. with 1. Non-ST elevation LA currently chest pain-free hemodynamic stable. 2. Acute [...] PDTPatient complained of chest pain at 2125. Gave one dose of nitro a nd got an EKG. Notified MD. Troponin was ordered. Troponin was 1.886. Will continue to monit or. Edmund Linares MD - 08/29/2020 11:44 AM PDT [facility] Service: Hospitalist Progress Note Pt: Porfirio Arturo Andujar AGE/SEX: 80 y.o. male ROOM: 4439/4439-01 : 1940 PCP: Jessenia Bergman ADMIT DATE: 08/24/2020 TODAY'S DATE: 08/29/2020 Hospital Day/Hospital Course: LOS: 4 days Mr. Andujar is a 80-year-old male with a history of COPD on home oxygen of up to 3 L at home , tobacco use disorder in remission (28-pjpq-zyqq smoking history, quit 2 weeks ago), type I I DM, HLD, HTN, history of DVT, history of LLE amputation with phantom limb pain, PAOLO on BiP AP, CVA, ESRD on HD, who originally presented to an outside hospital for shortness of breath , found to be in CHF exacerbation, with work-up revealing NSTEMI and transferred here for [facility] level of care. EKG at outside hospital [...] -ENT, Dr. Barba consulted, patient NPO at [place] NSTEMI -presented with troponin of 8, EKG [...] multi-factorial including CHF exacerbation, COPD exacerbation, NSTE LA, all of which improved. -O2 prn, currently [...] of care purp ose koumFarrukh MD - 0 08/29/2020 9:33 AM PDT [...] "Shortness of Breath (chf exacerbation, sent from [facility]. Sri neg ative two days ago ) Recommendations: There is no acute SALES TEAM MANAGER indication at this time Plan it for [...] @ 1:3 0pm for new patient paperwork. [facility] [address] [place] [address] Thank you, Marina - Dialysis Coord. 8:4 7 AM Kalli Powers, Neon Sign Worker - 08/29/2020 8:26 AM PDTPatient is a [...] any other medications you taking, including any dfug-swv-gzkdrbn products like pain-relievers, cold remedies, vitamins, and [...] during my visit. Thank you, Kalli Campos, Neon Sign Worker Lakeisha Turner MD - 08/29/2020 6:25 AM PDTFormatting of this note might be different from t he original. [facility] Service: Cardiology Progress Note Name of Structural Steel Worker Apprentice: Lakeisha Landry MD I have seen the [...] MG -- 2.1 2.1 Recent Labs Lab 08/28/2037 08/26/20 0508/24/20 2300 WBC 9.19 10.48 10.66 HGB 9.6* [...] is 80 y.o. with 1. Non-ST elevation LA currently chest pain-free hemodynamic stable. 2. Acute [...] Status: Full Code Lakeisha Landry MD 08/29/2020 hannon Hernandes R D - 08/28/2020 2:54 PM PDT NUTRITION NOTE Summary Assessment for pressure injury. Pt is 80 yo M admitted for acute respiratory failure with h pallavioxia. Met with pt. Pt reports the first [...] 2.1 Estimated Energy Needs Energy Calorie Requirements: 5546-8495 kcal(25-30 kcal/kg CBW 79.3) Estimated Protein Needs [...] might be different from the origin Porfirio Arturo [facility] [phone] Hospital Day: 3 Patient is 80-year-old gentleman [...] much, was ad mitted on transfer from [facility] in [place] for increasing shortness of br eath and CHF exacerbation, patient was initially given 80 mg of Lasix in ED and sublingual n itroglycerin, and IV Solu-Medrol, patient had to be put on BiPAP and was transferred to [facility] for higher level of care, and [facility] ED the patient was noted to have ST elevations in V2 an d V3 and mild reciprocal change in lead I, collective bargaining specialist was consulted and determined that it did [...] had 2 units of packed RBC and veur-bg-ryjt dialysis, and over the course of his stay was a ble to get off BiPAP. And after the dialysis hahm-nm-wpad as well as on 08/28 2020 able to be weaned down to O2 of 4 L by nasal cannula and was transferred from [place], Dr. lynette whitehead s working at having the patient have a dialysis time in [place] so hopefully the patient c an be [...] arranging for patient to have dialysis in [place]. Awaiting confirmation of c hair time hopefully [...] to have a dialysis chair time in [facility] which nephrology is arrangingon at [...] to patient and daughter Moriah at [phone] and [phone] they verbalized understanding and agreement and had [...] Computerized Physician O rder Entry. Dictation software, Webs, used which may contain error for similar sounding words even af ter review. Portions of this chart may have been copied from previous notes for continuity of care. [facility] Shaw MD, FACP, FAAP 08/28/2020 akeisha Murillo MD - 08/28/2020 8:02 AM PDT [facility] Service: Cardiology Progress Note Name of Structural Steel Worker Apprentice: Lakeisha Landry MD I have seen the patient on 08/28/2020, continues to have hemoptysis. Received 2 units of PRB C. SUBJECTIVE Current Facility-Administered Medications: acetaminophen (TYLENOL) tablet 650 mg, 650 mg, Oral, Q4H PRN, Dagoberto Lloyd, DO, 650 mg a t 08/26/20 0129 albuterol 90 mcg/puff inhaler 2 puff, 2 puff, Inhalation, RT Q4H PRN, Dgaoberto Lloyd, DO aspirin chewable tablet 81 mg, 81 mg, Oral, Daily, Dagoberto Lloyd, DO, 81 mg at 08/28/20 0 747 atorvaSTATin (LIPITOR) tablet 80 mg, 80 mg, Oral, Nightly, Dagoberto Desai DO, 80 mg at 1953 budesonide-formoterol (SYMBICORT) [...] 0.4 mg, Sublingual, Q5 Min PRN, Dagoberto Lloyd , DO ondansetron (ZOFRAN) injection 4-8 mg, 4-8 [...] is 80 y.o. with 1. Non-ST elevation LA currently chest pain-free hemodynamic stable. 2. Acute [...] now on 2L NC sating in the 90s. Medications sent with pt and daughter updated that pt is moving. All questions and co ncerns addressed during handoff. Chart check complete. Danisha Mercer RN alen Saleh RN - 0 08/27/2020 6:40 PM PDTA/O, off bipap al , up to chair, stand pivot with 2 person assist, HD tomorrow at 0700, if he wants to eat must have breakfast before 0630, moss out in AM per payroll lead, pain better controled today, bowel meds given for severe gas pain and abd xra y which showed stool, plan to d/c home with assist Friday per nephrology Electronically signed by: Jalen Saleh RN 08/27/2020 6:42 PM PDT Farrukh Curiel MD - 2:10 PM PDT Hospital Problem [...] "Shortness of Breath (chf exacerbation, sent from [facility]. Sri ortega two days ago ) Recommendations: There is no acute SALES TEAM MANAGER indication today Plan it for MWF No [...] and reporting considerable nausea. RN aware. Pt. encoura ged however continued to decline stating "Maybe I'll try tomorrow" Me emigdio Gandhi MD - 08/27/2020 8:09 AM PDTFormatting of this note might be different from the origi elton. [facility] Service: Cardiology Progress Note Name of Structural Steel Worker Apprentice: Lakeisha Landry MD I have seen the patient on 08/27/2020, continues to have hemoptysis. Received a second unit of PRBC. SUBJECTIVE Current Facility-Administered Medications: acetaminophen (TYLENOL) tablet 650 mg, 650 mg, Oral, Q4H PRN, Dagoberto Lloyd, DO, 650 mg a t 08/26/20 0129 albuterol 90 mcg/puff inhaler 2 puff, 2 puff, Inhalation, RT Q4H PRN, [facility], aspirin chewable tablet 81 mg, 81 mg, Oral, Daily, [facility], DO, 81 mg at 08/26/20 0 906 atorvaSTATin (LIPITOR) tablet 80 mg, 80 mg, Oral, Nightly, [facility], DO, 80 mg at 2129 budesonide-formoterol (SYMBICORT) 160-4.5 mcg/puff inhaler 2 puff, 2 puff, Inhalation, RT BID, Dagoberto Desai, DO, 2 puff at 08/26/202129 clopidogrel (PLAVIX) tablet 75 mg, 75 mg, Oral, Daily, [facility], DO, 75 mg at 09 Hypoglycemia Management, , , Until Discontinued AND POCT Glucose, , , PRN AND dextrose 50% injection 12.5-25 g, 12.5-25 g, Intravenous, PRN AND dextrose 10% (D10W) in fusion, , Intravenous, Continuous PRN, [facility] docusate sodium (COLACE) capsule 100 mg, 100 mg, Oral, BID PRN, [facility], insulin glargine (LANTUS SOLOSTAR) injection (pen) 25 Units, 25 Units, Subcutaneous, N ightly, [facility], , 25 Units at 08/26/202129 insulin lispro (humaLOG, ADMELOG) injection (vial) 0-6 Units, 0-6 Units, Subcutaneous, 4x Daily WC and HS, [facility], , 3 Units at 08/25/20 1634 lidocaine (PF) 1% injection 0.5 mL, 0.5 mL, Intradermal, Dialysis - PRN, Farrukh Acuna MD, 0.5 mL at 08/26/20 1225 lisinopril (PRINIVIL, ZESTRIL) tablet 2.5 mg, 2.5 mg, Oral, Nightly, Farrukh Acuna MD, 2.5 mg at 08/26/202129 nitroglycerin (NITROSTAT) SL tablet 0.4 mg, 0.4 mg, Sublingual, Q5 Min PRN, Dagoberto Crouchs , DO ondansetron (ZOFRAN) injection 4-8 mg, 4-8 [...] and dry. DATA Recent Labs Lab 08/26/20 0508/24/20 2300 NA 137 132* K 4.1 4.5 CO2 29 21* BUN 60* 84* CREA 4.10* 5.55* EGFR 14* 10* CALCIUM 8.1* 7.8* MG 2.1 2.1 Recent Labs Lab 08/26/20 0508/24/20 2300 WBC 10.48 10.66 HGB 8.7* 7.9* HCT 27.3* 24.8* MCV 91.0 92.5 PLT 314 327 Recent Labs Lab 08/26/20 0508/25/20 1944 08/25/20 1557 08/25/20 1157 08/24/20 2302 [...] is 80 y.o. with 1. Non-ST elevation LA currently chest pain-free hemodynamic stable. 2. Acute [...] Status: Full Code Lakeisha Landry MD 08/27/2020 Seven Morton MD - 08/27/2020 8:04 AM PDTFormatting of this note might be different from the origi nal. Porfirio Morris [facility] [id number] Hospital Day: 2 Patient is 80-year-old gentleman [...] much, was ad mitted on transfer from [facility] in [place] for increasing shortness of br eath and CHF exacerbation, patient was initially given 80 mg of Lasix in ED and sublingual n itroglycerin, and IV Solu-Medrol, patient had to be put on BiPAP and was transferred to [facility] for higher level of care, and [facility] ED the patient was noted to have ST elevations in V2 an d V3 and mild reciprocal change in lead I, collective bargaining specialist was consulted and determined that it did [...] had 2 units of packed RBC and wzth-zk-[id number] dialysis, and over the course of his [...] to patient and daughter Moriah at 5 [phone] and [phone] they verbalized understanding and agreement and had [...] and management as well as Computerized Physician Roll Skinner. Dictation software, Webs, used which may contain error for similar [...] differen t from the original. Porfirio Benavidesral [id number] Hospital Day: 1 SUBJECTIVE Events Overnight: Patient [...] to patient and daughter Moriah at 5 [phone] and [phone] they verbalized understanding and agreement and had [...] and management as well as Computerized Physician Roll Skinner. Dictation software, Webs, used which may contain error for similar sounding words even af ter review. Portions of this chart may have been copied from previous notes for continuity of care. Seven Shaw MD, FACP, FAAP 08/26/2020 ls Lakeisha matamoros MD - 08/26/2020 7:19 AM PDT [facility] Service: Cardiology Progress Note Name of Structural Steel Worker Apprentice: Lakeisha Landry MD I have seen the patient on 08/26/2020, continues to have hemoptysis. Received one unit of VT BC. SUBJECTIVE Current Facility-Administered Medications: acetaminophen (TYLENOL) [...] 25 Units, 25 Units, Subcutaneous, N ightly, [facility], , 25 Units at 08/25/202034 insulin lispro (humaLOG, ADMELOG) injection (vial) 0-6 Units, 0-6 Units, Subcutaneous, 4x Daily WC and HS, [facility], DO, 3 Units at 08/25/20 1634 nitroglycerin (NITROSTAT) SL tablet 0.4 mg, 0.4 mg, Sublingual, Q5 Min PRN, [facility] , ondansetron (ZOFRAN) injection 4-8 mg, 4-8 mg, Intravenous, Q6H PRN, [facility], oxyCODONE (ROXICODONE) tablet 15 mg, 15 mg, Oral, Q4H PRN, [facility], , 15 mg at 2025 oxyCODONE (ROXICODONE) tablet 5 mg, 5 mg, Oral, Once, Seven Shaw MD, Sto pped at 08/26/20 0906 polyethylene glycol (MIRALAX) powder 17 g, 17 g, Oral, Daily, [facility], , 17 g at 08/26/20 0905 sodium chloride 0.9% (NS) bolus 100 mL, 100 mL, Intravenous, Dialysis - PRN, Farrukh Ramiro richey MD OBJECTIVE Vital Signs: BP 114/54 [...] is 80 y.o. with 1. Non-ST elevation LA currently chest pain-free hemodynamic stable. 2. Acute [...] note might be different from richard harley. [facility] Service: Hospitalist Admission History & Physical Pt: Porfirio Andujar AGE/SEX: 80 y.o. male ROOM: [facility]/9120- PCP: Jessenia Bergman : 1940 TODAY'S DATE: 08/25/2020 Date of Admission: 08/24/2020 Chief Complaint: SOB History of Present Illness: The patient is a 80 y.o. male with extensive past medical history of including CHF, COPD, t ype 2 diabetes, dyslipidemia, hyper lipidemia, hypertension, iron deficiency anemia, obstruc tive sleep apnea, left lower extremity amputation, and history of stroke presented to the [facility] in [facility] for evaluation of shortness of breath. [...] in consultation. Patient was then transferred to [facility] ER. In the [facility] emergency department patient was noted to have [...] (Right BBF); Surgeon: Brian Orosco MD; Location: [facility] MAIN OR CHOLECYSTECTOMY COLONOSCOPY HIATAL [...] for shortness of breath 03/03/19 Historical ProviderMD Medications scheduled: aspirin 81 mg Oral Daily [...] Father Hypertension Brother Sharifa hypertherm Neg Hx Social Hx: Social History [...] current status. Apparently patient recently admitted to [facility] for CHF exacerbation. Patient in worsening renal failure, difficult with diuresis. Nephrology consulted, possible dialysis for diuresis. We will continue with IV diuresis at 80 mg IV daily of Lasix, however appreciate recomm endations from nephrology. Moss catheter placed as it appeared the patient was retaining urine. Monitor renal function closely We will get records from [facility] Stage V versus end-stage renal disease patient [...] 08/24/2020 Reason for Consultation: Requesting Physician: Dr Dalton, Hospitalist History Obtained From: patient CHIEF COMPLAINT: Neck mass HISTORY OF PRESENT ILLNESS Mr. Andujar is an 80-year-old gentleman who has multiple comorbid conditions including histo ry of hypertension, hyperlipidemia, coronary artery disease, peripheral vascular disease, CO PD, type 2 diabetes, CVA, extensive history of tobacco use and on end-stage renal disease, c urrently on dialysis. The patient was admitted to [facility] after being transferred from [facility] with shortness of breath. Workup at the time of admission showed that the patient urena d ST elevation LA resulting in exacerbation of CHF and COPD. [...] include: - CHF - hypertension - past LA - PVD - COPD - sleep apnea [...] (Right BBF); Surgeon: Brian Orosco MD; Location: [facility] MAIN OR CHOLECYSTECTOMY COLONOSCOPY HIATAL [...] cholecystectomy. Final Report Signed by: Idris Diaz Matthew Sign Date/Time: 08/29/2020 1:54 PM PROBLEM LIST [...] conditions. The patient w as transferred from [facility] with persistent worsening shortness of breath. [...] having issues. The patient currently lives in [place]. He wants to receive his treatment near his home. The patient has requested a referral there. There is a [facility] from [place], which visits [place] and we will see if the patient [...] PDTAssociated Order(s): PROVIDER TO PROVIDER CONSULTFormatting of is note might be different from the original. Service: Otolaryngology (ENT) Initial Consult Note Date of Admission: 08/24/2020 Reason for Consultation: Hemoptysis Requesting Physician: Dr. Dalton, Hospitalist History Obtained From: patient CHIEF COMPLAINT: Coughing up blood HISTORY OF PRESENT ILLNESS The patient is 80 y.o. 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 MAIN OR CHOLECYSTECTOMY COLONOSCOPY HIATAL [...] to h is most recent history of LA. -Plan for biopsy tomorrow in the afternoon [...] Status: Full Code Primary Care Physician: Jessenia Barba DO 08/29/2020 Lakeisha Gandhi MD - 08/25/2020 10:54 AM PDTFormatting of this note might be different from the o suzyinal. [facility] Service: Cardiology Initial Consult Note Name of Structural Steel Worker Apprentice: Lakeisha Landry MD Reason for Consultation: NSTEMI Requesting Physician: Hospitalist History Obtained From: Patient and chart review CHIEF COMPLAINT: Chest pain HISTORY OF PRESENT ILLNESS: Patient is 80 y.o. complex past medical history and presentation. Was evaluated in [facility] in [place] secondary to shortness of breath. Sym ptoms started around 2 months ago. Associated with chest pressure that has been intermitten t at rest since patient is an active and wheelchair-bound. Required BIPAP therapy hence was transferred to [facility]. On presentation was noted to be hemodynamically [...] (Right BBF); Surgeon: Brian Orosco MD; Location: [facility] MAIN OR CHOLECYSTECTOMY COLONOSCOPY HIATAL [...] file Gets together: Not on file Attends denominational service: Not on file Active member of [...] is 80 y.o. with 1. Non-ST elevation LA currently chest pain-free hemodynamic stable. 2. Acute [...] admitted with "NSTEMI (non-ST elevated myocardial infarction) ([facility]) [I21.4] ESRD needing dialysis ([facility]) [N18.6, Z99.2] Hypervolemia, unspecified hypervolemia type [E87.70] Anemia of chronic renal failure, unspecified CKD stage [N18.9, D63.1] Congestive heart failure, unspecified HF chronicity, unspecified heart failure type ([facility]) [ I50.9] He presented with "Shortness of Breath (chf exacerbation, sent from [facility]. Sri christianson two days ago ) Has had dyspnea & chest pressure on off for 1 month. Just released from the hospital for a similar presentation; was not started on SALES TEAM MANAGER. sxs worsened the 2 days ptp. Taken to [facility] ED. I received a phone call last night when the patient was at [facility]: life threatening severe hyp ervolemia with acute hypoxic respiratory failure from acute pulmonary edema. BiPAP helped st abilize him. Sent to [facility]. Still requiring PPV & not in a safe condition yet. History & ROS obtained from : patient, his daughter over the phone, the ED team at [facility], the ED team at [facility], chart review. The patient has history of [...] chronic; systolic - hypertension; essential - past LA - PVD - COPD - sleep apnea; [...] (Right BBF); Surgeon: Brian Orosco MD; Location: [facility] MAIN OR CHOLECYSTECTOMY COLONOSCOPY HIATAL HERNIA REPAIR LEG SURGERY x2 on stump of amputated leg OTHER SURGICAL HISTORY CATARACT EXTRACTION BILATERAL PANCREAS SURGERY tumor removal Family History Problem Relation Age of Onset Hypertension Mother Cancer Father Heart disease Father Hypertension Brother Malig hypertherm Neg Hx Social History Socioeconomic History [...] file Gets together: Not on file Attends denominational service: Not on file Active member of [...] admitted with "NSTEMI (non-ST elevated myocardial infarction) ([facility]) [I21.4] ESRD needing dialysis ([facility]) [N18.6, Z99.2] Hypervolemia, unspecified hypervolemia type [E87.70] Anemia of chronic renal failure, unspecified CKD stage [N18.9, D63.1] Congestive heart failure, unspecified HF chronicity, unspecified heart failure type ([facility]) [ I50.9] -He presented with "Shortness of Breath (chf exacerbation, sent from [facility]. Angelid neg ative two days ago ) VOLUME: [...] at this time There is an acute SALES TEAM MANAGER indication, on an urgent basis, per the [...] closely & frequently ELECTROLYTES: Abnormal. +ve acute SALES TEAM MANAGER indication He is at risk for electrolytes [...] Taya Mario RN - 08/25/2020 1:01 AM [phone] Charlotte (Daughter) [phone] Taya Otto RN - 08/24/2020 11:46 PM PDTDr. Di made aware of troponin of 8.035Electronicall y signed by Taya Mario RN at 08/24/2020 11:46 PM PDTSheyla Sevilla MD - 08/24/2020 10:50 PM PDT [facility] Department of Emergency Medicine No flowsheet data found. 3:41 AM PDT History of Present Illness Patient Identification Porfirio Andujar is a 80 y.o. male. Porfirio Andujar Patient information was obtained from patient History/Exam limitations: none. Patient presented to the Emergency Department by: [facility] Chief Complaint Chief Complaint Patient presents with Shortness of Breath chf exacerbation, sent from [facility]. Covid negative two days ago The patient [...] location of the symptoms as the following: Paula antunez stated that he started experiencing shortness of breath for the past several days, has a right upper arm dialysis fistula but has not been dialyzed for a long time. He was evalua cassi at [facility], received 80 mg of Lasix [...] (Right BBF); Surgeon: Brian Orosco MD; Location: [facility] MAIN OR CHOLECYSTECTOMY COLONOSCOPY HIATAL [...] for shortness of breath 03/03/19 Historical Provider, Allergies Allergen Reactions Trazodone Hallucination Social History [...] file Gets together: Not on file Attends denominational service: Not on file Active member of [...] currently not on dialysis was transferred from [facility] due to fluid overload. Patient reevaluated currently not in significant respiratory distress. Vacuum aw are about the patient and plan for dialysis in the morning. Will continue BiPAP repeat lab and hospitalist admission. Medical Decision Making as of Aug 25 0341 Fely Aug 24, 2020 2358 Lab review 2358 Total Hemoglobin(!): 7.9 2358 RBC(!): 2.68 2358 Hematocrit(!): 24.8 2359 B-TYPE NATRIURETIC PEPTIDE(!): 2,431.10 2359 Na(!): 132 2359 Chloride(!): 97 2359 Carbon dioxide(!): 21 2359 Glucose(!): 162 2359 BUN(!): 84 2359 Creatinine(!): 5.55 2359 Phosphorus(!): 7.4 2359 Troponin I(!!): 8.035 Fri Aug 25, 2020 0104 Patient currently tolerated BiPAP, in no respiratory distress. EKG show T wave inversion in the anterolateral leads. Denies chest pain. Discussed case with hospitalist Dr Desai is concerned regarding the EKG for possible STEMI a nd recommended consulting with collective bargaining specialist.. EKG was sent to collective bargaining specialist, Dr Blue for review, he does not think it meet criteria for Torch Straightener And Heater activation. Will start heparin infusion for NSTEMI. [...] 5,000 Units (5,000 Units Intravenous Given 08/25/20 0125) lidocaine (XYLOCAINE) 2% jelly (uro-jet) ( Urethral Given 08/25/20 0155) oxyCODONE (ROXICODONE) tablet 10 mg (10 mg Oral Given 08/25/20 0203) Vitals: 08/24/20229908/24/20 2330 08/25/20 0110 08/25/20 020 BP: 113/55 118/57 114/58 Pulse: 82 82 80 Resp: 18 18 18 Temp: SpO2: 96% 96% 95% Weight: 85 kg (187 lb 6.3 oz) Laboratory Evaluation Results Procedure Component Value Ref Range Date/Time Phosphorus [[id number]] (Abnormal) Collected: 08/24/202299 Order Status: Completed Specimen: Blood Updated: 08/24/202345 Phosphorus 7.4 2.3 - 4.8 mg/dL Comprehensive Metabolic Panel [[id number]] (Abnormal) Collected: 08/24/202299 Order Status: Completed Specimen: [...] Estimated GFR 10 >60 mL/min/1.73m2 Troponin I [[id number]] (Abnormal) Collected: 08/24/202299 Order Status: Completed Specimen: Blood Updated: 08/24/202345 Troponin I 8.035 0.00 - 0.04 ng/mL Magnesium [[id number]] Collected: 08/24/202299 Order Status: Completed Specimen: Blood Updated: 08/24/202345 Magnesium 2.1 1.7 - 2.4 mg/dL B Type Natriuretic Peptide [[id number]] (Abnormal) Collected: 08/24/202299 Order Status: Completed Specimen: Blood Updated: 08/24/207 BNP 2,431.10 0 - 100 pg/mL Protime INR [[id number]] Collected: 08/24/202301 Order Status: Completed Specimen: Blood Updated: 08/24/202324 INR 1.2 CBC with Differential [[id number]] (Abnormal) Collected: 08/24/202299 Order Status: Completed Specimen: [...] by me. Diagnosis 1. ESRD needing dialysis ([facility]) 2. Hypervolemia, unspecified hypervolemia type 3. NSTEMI (non-ST elevated myocardial infarction) ([facility]) 4. Anemia of chronic renal failure, unspecified CKD stage 5. Congestive heart failure, unspecified HF chronicity, unspecified heart failure type ([facility] ) Disposition: ED Disposition ED Disposition Condition Comment Admit Clinical impression: ESRD needing dialysis ([facility]) [650601] Clinical impression: Hypervolemia, unspecified hypervolemia type [1838469] Clinical impression: Elevated troponin I level [298963] Admitting provider: SALLIE HOSPITALIST [[id number]] Expected patient class: Inpatient [101] Level of service: Medical Discharge Medications: ED Prescriptions None Procedures: Procedures Attending Provider Note: Sheyla Whitehead MD personally performed the services described in this documentation, as scribed by Sheyla Sevilla MD in my presence, and it is both ac curate and complete. Chart Reviewed and Completed. Scribe: Charlie Sevilla MD,Scribe, scribing for and in the presence of Sheyla Sevilla MD. Completed by: Sheyla Sevilla MD, Scribe 08/25/2020 3:41 AM PDT Sheyla Sevilal MD 08/25/20 0341 aya Mario RN - 08/24/2020 10:50 PM PDTBed: ED06 Expected date: Expected time: Means of arrival: Comments: [facility] cassi in this encounter Miscellaneous Notes Plan of Care - Nathaniel Garcia RN - 09/01/2020 8:00 AM PDT Problem: Adult Inpatient Plan of Care Goal: Plan of Care Review Outcome: Ongoing, progressing Pt to discharge to home via [facility] Daughter will meet pt at home and transport pt to [facility]. Daughter and pt updated as to the plan of care. Chart audit complete. Electronically sign ed by Nathaniel Garcia RN at 09/01/2020 8:01 AM PDTPlan of Care - Essie Osie RN - 09/01/2020 7:32 AM [id number]: called [facility] transport to see if they had an 1100 wheelchair belt picker available- they do not have anything available until 100. [facility] if [facility] had a wheelchair belt picker available this morning to [place]- their earliest is 1245. 0740: asked Jim CEVALLOS if she thinks pt can pivot transfer into a regular cab, and then have his daughter meet at the cab with a wheelchair- she didn't believe he would be able to. Ca lled [facility] to set up transport- I tried to get him set up where they can take him straight to . They said they only had a 1000 and 300 available. Pt set up with 1000 belt picker. Update nestor Fernandez RN and Dr Dalton. 0800: updated Marina Coordinator of discharge. Care Management Final Discharge Plan Readmission Risk: HIGH Discharge Plan Planned Disposition: Home. PCP: Jessenia Bergman Patient/Family Notified: yes. Transportation will be provided by: [facility] Transportation Date/Time: 10/2/20 1000. Community Support Services Current Outpt/Agency/Support Groups: HD. Community Agency Name: [facility]. Equipment Durable Medical Equipment Provider: [facility]. Equipment Used at Home: wheelchair, oxygen Electronically signed: Essie Osei RN 09/01/2020 7:56 AM PDT lan of Osito - Chely Rossi RN - 09/01/2020 12:53 AM PDTPatient rest well during shift. VVS throughout joselo ft. PRN pain meds administer see MAR. No changes from shift assessment. End of shift chart c heck complete. Chely Holloway RN Problem: Adult Inpatient Plan of Care Goal: Plan of Care Review Outcome: Ongoing, progressing Patient will be discharged tomorrow. Patient didn't have any questions. Patient was concer sindy with making dialysis appointment that is scheduled outcount includes the [facility] at 1330 in [place], [place]. Problem: Gas Exchange Impaired Goal: Optimal Gas Exchange Outcome: Ongoing, progressing Patient on CPAP for half of the night. o2 sats in high 90s. Patient now on 4 L of o2 nasal canula. lan of Osito - Charley Gaffney RN - 08/31/2020 6:10 PM PDT Problem: [...] RN at 08/31 6:24 PM PDTPlan of Os[place] - Essie Osei RN - 08/31/2020 11:17 AM [id number]: round ed with Dr Dalton: pt not [...] Will deci de tomorrow morning. 1120: updated [facility] HD Coordinator of plan of care. lan [...] and drinking well. Shift chart check complete. Electronica lly signed by Marciano Celis RN at [...] End of shift chart check complete. Chely Holloway, RN Problem: Skin Injury Risk Increased Goal: [...] chart check c omplete lan of Sera Monson, PT - 08/29/2020 11:40 AM PDTPhysical Therapy [...] HOB elevated Supine to Sit, Level of [place]: independent Sit to Supine, Level of [place]: not tested Transfers Transfers Comments: Used stand-pivot transfer to get to wheelchair. He was able to set up h is wheelchair safely in preparation for transfer. Additional Documentation: sit to/from stand, bed to/from chair Bed-Chair, Level of [place]: independent Chair-Bed, Level of [place]: not tested Ups-Amgqw-Aph, Assistive Device: none Sit-Stand, Level of [place]: independent Stand-Sit, Level of [place]: independent Gait Gait Comments: Not tested Balance [...] Essie Gong RN - 08/29/2020 8:44 AM [id number]: messaged Marina HD Coordinator to see if [...] Chart check complete. Randal Gusman RN lan of Randal Ennis RN - 08/29/2020 3:14 AM PDT Problem: [...] Pt is w/c bound, already on O2. Marina/AXVI is working on chair time for pt. Daughter will transport Electronically signed: Sera Wesley RN 08/28/2020 1:37 PM PDT lan of Essie Strickland RN - 08/28/2020 11:22 AM [id number]: faxed Marina HURLEY Coordinator ronnie per her [...] Gayathri Villela RN - 08/27/2020 10:22 AM [id number]: pt nauseous, had episode of vomiting, switched [...] RN at 08/27/2020 10:27 AM PDTPlan of Care - Essie Osei RN - 08/27/2020 9:39 AM PDTCare Management Initial Assessment Readmission Risk: HIGH Pt admitted with NSTEMI. 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 He is mostly wheelchair bound and wears [...] Information Family Contact Information: Name: [place] . dc Needs Assessment Current Outpt/Agency/Support Groups: none Anticipated Changes Related to Illness: none Concerns to be Addressed: denies needs/concerns at this time Services Anticipated at Discharge: home health care Equipment Used at Home: wheelchair, oxygen Durable Medical Equipment Provider: [facility] Home [facility]. Initial Plan Anticipated Discharge Disposition: home with assist Electronically signed: Essie Osei RN 08/27/2020 9:39 AM PDT lan of Care - Yudelkax on, Danisha Quezada RN - 08/26/2020 11:23 PM PDTProblem: Skin [...] remains on bipap, lasix discontinued lan of Poonam Helm RN - 08/26/2020 12:10 AM PDT Problem: [...] measures promoted airway patency maintained lan of Jalen Henley RN - 08/25/2020 5:52 PM PDTProblem: Gas Exchange Impaired Goal: Optimal Gas Exchange Outcome: Ongoing, progressing Note: Pt remains bipap dependent, complains of SOB when off, tolerated mask off with meals and nasal cannula Problem: Fluid Volume Excess Goal: Fluid Balance Outcome: Ongoing, progressing Note: Pt to receive dialysis today, fluid restriction (1.2L) in place lan of Care - Jas hidalgo, Seven Valadez MD - 08/25/2020 8:25 AM PDTPatient seen [...] I also talked to the patient's daughter Chalrotte at [phone] a bout the plan of care and [...] | | 2019 | Visit | | [employer] [address] | | | | | | DR ORNELAS, | | | | | | [place] [address] | | | | | | [phone] | | | | | | | [...] [place] | | | | | | [id number] | | | | | | | [...] cell | Ordered: 09/01/2020 | | to [facility]NT | Referral | e | carcinoma [...] | | n - | | | 09/24/ | | | 2020 | | | 10:51 | | | [...] | | | FICATI | | | ON?09/ | | | 24/202 | | | 0 | | | 22:50? | | | ANDUJAR | | | , | | | PORFIRIO | | | | | | F?MRN: | | | | | | [id number] | | | [id number] | | | riteri | | | [...] | | | St. | | | [place] | | | y | | | [...] | | | care | | | line patrolman | | | to | | | offer | | | inhale | | | r | | | traini | | | ng.6/2 | | | 8/18 | | | 12:00 | | | AM | | | [facility] | | | [facility] | | | [place] | | | y | | | [...] | | | St. | | | [place] | | | y | | | [...] | | | St. | | | [place] | | | y | | | [...] | | | St. | | | [place] | | | y H. | | [...] | | | St. | | | [place] | | | y H. | | [...] | | | St. | | | [place] [place] | | | y H. | | [...] | | | St. | | | [place] | | | y H. | | [...] | | | St. | | | [place] | | | y H. | | [...] | | | gitis | | | Otm | | | 16, | | | 2020 | | | [facility] | | | [facility] | | | [place] | | | y H. | | [...] | | | St. | | | [place] | | | y H. | | [...] | | | St. | | | [place] | | | y H. | | [...] | | | St. | | | [place] | | | y H. | | [...] | | | St. | | | [place] | | | y H. | | [...] | | | St. | | | [place] | | | y H. | | [...] | | | [id number] | | | [id number] | | | 9a | | | [...] | 65 - 99 mg/dL | [facility] | | | POC | performed at [facility];[address] | | LABORATORY | | | | [address];[place], [place] | | | | | | [address] | | | | + + + + + + + + | Specimen | + + | | + + + + + + + | Performing | Address | City/State/Zipcode | Phone Number | | Organization | | | | + + + + + | [facility] | [address] | [place] [address] | [phone] | + + + + + POC [...] | | | POC | performed at [facility];[address] | | LABORATORY | | | | [address];[place] | | | | | | [address] | | | | + + + + + + + + | Specimen | + + | | + + + + + + + | Performing | Address | City/State/Zipcode | Phone Number | | Organization | | | | + + + + + | [facility] | [address] | [place] [address] | [phone] | + + + + + POC [...] | | | POC | performed at [facility];[address] | | LABORATORY | | | | [address];[place], [place] | | | | | | [address] | | | | + + + + + + + + | Specimen | + + | | + + + + + + + | Performing | Address | City/State/Zipcode | Phone Number | | Organization | | | | + + + + + | [facility] | [address] | [place] [address] | [phone] | + + + + + POC [...] | | | POC | performed at [facility];[address] | | LABORATORY | | | | [address];[place] | | | | | | [address] | | | | + + + + + + + + | Specimen | + + | | + + + + + + + | Performing | Address | City/State/Zipcode | Phone Number | | Organization | | | | + + + + + | [facility] | [address] | [place] [address] | [phone] | + + + + + Surgical [...] to Dr. Barba. Frozen section performed at [facility]. | | | AI (under the direct [...] As part of the | | | [employer] Program, this case was reviewed by another member of | | | [facility]. (AMB) MICROSCOPIC EXAMINATION:Histologic sections | | [...] interpretation was performed by | | | [facility], [address], | | | [place], [place] (Assembly Worker: Pastor Browning M.D.; CLIA#: | | | [id number]).The technical component was performed by [facility] | | | [facility], [address] [place] [address] (Assembly Worker: | | | Kerry Michel MD; CLIA# [id number]). COMMENT:Surrogate HPV marker p16 is | | [...] | |The professional interpretation was performed by [facility], [facility], [address] [place] [address] (Assembly Worker: Pastor Browning M.D.; CLIA#: [id number]). | | |The technical component was performed by [employer] [facility], [address] [place] [address] (Assembly Worker: Kerry Michel MD; CLIA# [id number]). | | | | | |COMMENT: | [...] | | | POC | performed at [facility];[address] | | LABORATORY | | | | [address];[place] | | | | | | [address] | | | | + + + + + + + + | Specimen | + + | | + + + + + + + | Performing | Address | City/State/Zipcode | Phone Number | | Organization | | | | + + + + + | [facility] | [address] | [place] [address] | [phone] | + + + + + Basic [...] 7.6 (L) | 8.5 - 10.5 | [place] | | | | | mg/dL | LABORATORY | | + + + + + + | Estimated | 19 (L)Comment: GFR <60: | >60 | [facility] | | | GFR | [...] [address], | | | | | | [place] [address] | | | | + + + + + + + + | Specimen | + + | Blood | + + + + + + + | Performing | Address | City/State/Zipcode | Phone Number | | Organization | | | | + + + + + | [facility] | [address] | [place] [address] | [phone] | + + + + + CBC [...] | 10.8Comment: NO NORMAL | fl | [facility] | | | | RANGE ESTABLISHEDTesting | | LABORATORY | | | | performed at [facility], [address] | | | [address] | [address], | | | | | | [place] [address] | | | | + + + + + + + + | Specimen | + + | Blood | + + + + + + + | Performing | Address | City/State/Zipcode | Phone Number | | Organization | | | | + + + + + | [facility] | [address] | [place] [address] | [phone] | + + + + + POC [...] | | | POC | performed at [facility];[address] | | LABORATORY | | | | [address];[place], [place] | | | | | | [address] | | | | + + + + + + + + | Specimen | + + | | + + + + + + + | Performing | Address | City/State/Zipcode | Phone Number | | Organization | | | | + + + + + | [facility] | [address] | [place] [address] | [phone] | + + + + + POC Glucose (08/30/2020 9:02 PM PDT) + + + + + + | Component | Value | Ref Range | Performed | Pathologist | | | | | At | Signature | + + + + + + | Glucose, | 138 (H)Comment: Testing | 65 - 99 mg/dL | [facility] | | | POC | performed at [facility];[address] | | LABORATORY | | | | [address];[place], [place] | | | | | | [address] | | | | + + + + + + + + | Specimen | + + | | + + + + + + + | Performing | Address | City/State/Zipcode | Phone Number | | Organization | | | | + + + + + | [facility] | [address] | [place] [address] | [phone] | + + + + + POC Glucose (08/30/2020 11:27 AM PDT) + + + + + + | Component | Value | Ref Range | Performed | Pathologist | | | | | At | Signature | + + + + + + | Glucose, | 88Comment: Testing | 65 - 99 mg/dL | [facility] | | | POC | performed at [facility];[address] | | LABORATORY | | | | [address];[place] | | | | | | [address] | | | | + + + + + + + + | Specimen | + + | | + + + + + + + | Performing | Address | City/State/Zipcode | Phone Number | | Organization | | | | + + + + + | [facility] | [address] | [place] [address] | [phone] | + + + + + POC [...] | | | POC | performed at [facility];[address] | | LABORATORY | | | | [address];[place], [place] | | | | | | [address] | | | | + + + + + + + + | Specimen | + + | | + + + + + + + | Performing | Address | City/State/Zipcode | Phone Number | | Organization | | | | + + + + + | [facility] | [address] | [place] [address] | [phone] | + + + + + POC Glucose (08/30/2020 4:48 AM PDT) + + + + + + | Component | Value | Ref Range | Performed | Pathologist | | | | | At | Signature | + + + + + + | Glucose, | 79Comment: Testing | 65 - 99 mg/dL | [place] | | | POC | performed at [facility];[address] | | LABORATORY | | | | [address];[place], [place] | | | | | | [address] | | | | + + + + + + + + | Specimen | + + | | + + + + + + + | Performing | Address | City/State/Zipcode | Phone Number | | Organization | | | | + + + + + | [facility] | [address] [facility] | [place] [address] | [phone] | + + + + + Basic [...] 16 (L)Comment: GFR <60: | >60 | [facility] | | | GFR | [...] | | | | | performed at [facility] | | | | | | [facility];[place], [place] | | | | | | [address] | | | | + + + + + + + + | Specimen | + + | Blood | + + + + + + + | Performing | Address | City/State/Zipcode | Phone Number | | Organization | | | | + + + + + | [facility] | [address] | [place] [address] | [phone] | + + + + + CBC [...] LABORATORY | | | | performed at [facility];[address] | | | | | | [address];[place] | | | | | | [address] | | | | + + + + + + + + | Specimen | + + | Blood | + + + + + + + | Performing | Address | City/State/Zipcode | Phone Number | | Organization | | | | + + + + + | [facility] | [address] | [place] [address] | [phone] | + + + + + POC Glucose (08/30/2020 2:40 AM PDT) + + + + + + | Component | Value | Ref Range | Performed | Pathologist | | | | | At | Signature | + + + + + + | Glucose, | 75Comment: Testing | 65 - 99 mg/dL | [facility] | | | POC | performed at [facility];[address] | | LABORATORY | | | | [address];[place] | | | | | | [address] | | | | + + + + + + + + | Specimen | + + | | + + + + + + + | Performing | Address | City/State/Zipcode | Phone Number | | Organization | | | | + + + + + | [facility] | [address] | [place] [address] | [phone] | + + + + + ECG [...] 1.886 ()Comment: | 0.00 - 0.04 | [facility] | | | | 0.04 ng/mL or [...] | | | | MICHELLE Reza ON [id number] AT | | | | | | 2223 BY JFTesting | | | | | | performed at [facility] | | | | | | [facility];[place], [place] | | | | | | [address] | | | | + + + + + + + + | Specimen | + + | Blood | + + + + + + + | Performing | Address | City/State/Zipcode | Phone Number | | Organization | | | | + + + + + | [facility] | [address] | [place] [address] | [phone] | + + + + + POC Glucose (08/29/2020 8:37 PM PDT) + + + + + + | Component | Value | Ref Range | Performed | Pathologist | | | | | At | Signature | + + + + + + | Glucose, | 225 (H)Comment: Testing | 65 - 99 mg/dL | [facility] | | | POC | performed at [facility];[address] | | LABORATORY | | | | [address];[place], [place] | | | | | | [address] | | | | + + + + + + + + | Specimen | + + | | + + + + + + + | Performing | Address | City/State/Zipcode | Phone Number | | Organization | | | | + + + + + | [facility] | [address] | [place] [address] | [phone] | + + + + + POC Glucose (08/29/2020 5:03 PM PDT) + + + + + + | Component | Value | Ref Range | Performed | Pathologist | | | | | At | Signature | + + + + + + | Glucose, | 134 (H)Comment: Testing | 65 - 99 mg/dL | [facility] | | | POC | performed at [facility];[address] | | LABORATORY | | | | [address];[place], [place] | | | | | | [address] | | | | + + + + + + + + | Specimen | + + | | + + + + + + + | Performing | Address | City/State/Zipcode | Phone Number | | Organization | | | | + + + + + | [facility] | [address] | [place] [address] | [phone] | + + + + + CT [...] Procedure Note | + + | Wiley, [id number] - 08/29/2020 1:58 PM PDT | | [...] | | | POC | performed at [facility];[address] | | LABORATORY | | | | [address];[place] | | | | | | [address] | | | | + + + + + + + + | Specimen | + + | | + + + + + + + | Performing | Address | City/State/Zipcode | Phone Number | | Organization | | | | + + + + + | [facility] | [address] | [place] [address] | [phone] | + + + + + Hepatitis [...] | | | at [facility], [address] | | | | | | [place], [place] [address], [facility] | | | | | | [address] | | | | + + + + + + + + | Specimen | + + | | + + + + + + + | Performing | Address | City/State/Zipcode | Phone Number | | Organization | | | | + + + + + | [facility] | [address] | [place] [address] | [phone] | + + + + + D-Dimer (08/29/2020 10:32 AM PDT) + + + + + + | Component | Value | Ref Range | Performed | Pathologist | | | | | At | Signature | + + + + + + | D-DIMER | 2.50 (H)Comment: D Dimer | 0.19 - 0.50 | [facility] | | | | results [...] | | | | | performed at [facility];[address] | | | | | | [address];[place] | | | | | | [address] | | | | + + + + + + + + | Specimen | + + | Blood | + + + + + + + | Performing | Address | City/State/Zipcode | Phone Number | | Organization | | | | + + + + + | [facility] | [address] | [place] [address] | [phone] | + + + + + POC [...] | | | POC | performed at [facility];[address] | | LABORATORY | | | | [address];[place], [place] | | | | | | [address] | | | | + + + + + + + + | Specimen | + + | | + + + + + + + | Performing | Address | City/State/Zipcode | Phone Number | | Organization | | | | + + + + + | [facility] | [address] | [place] [address] | [phone] | + + + + + POC [...] | | | POC | performed at [facility];[address] | | LABORATORY | | | | [address];[place] | | | | | | [address] | | | | + + + + + + + + | Specimen | + + | | + + + + + + + | Performing | Address | City/State/Zipcode | Phone Number | | Organization | | | | + + + + + | [facility] | [address] | [place] [address] | [phone] | + + + + + POC Glucose (08/28/2020 4:52 PM PDT) + + + + + + | Component | Value | Ref Range | Performed | Pathologist | | | | | At | Signature | + + + + + + | Glucose, | 208 (H)Comment: Testing | 65 - 99 mg/dL | [facility] | | | POC | performed at [facility];[address] | | LABORATORY | | | | [address];[place] | | | | | | [address] | | | | + + + + + + + + | Specimen | + + | | + + + + + + + | Performing | Address | City/State/Zipcode | Phone Number | | Organization | | | | + + + + + | [facility] | [address] | [place] [address] | [phone] | + + + + + POC [...] | | | POC | performed at [facility];[address] | | LABORATORY | | | | [address];[place], [place] | | | | | | [address] | | | | + + + + + + + + | Specimen | + + | | + + + + + + + | Performing | Address | City/State/Zipcode | Phone Number | | Organization | | | | + + + + + | [facility] | [address] | [place] [address] | [phone] | + + + + + CBC [...] | 10.2Comment: NO NORMAL | fl | [facility] | | | | RANGE ESTABLISHEDTesting | | LABORATORY | | | | performed at [facility];[address] | | | | | | [address];[place], [place] | | | | | | [address] | | | | + + + + + + + + | Specimen | + + | Blood | + + + + + + + | Performing | Address | City/State/Zipcode | Phone Number | | Organization | | | | + + + + + | [facility] | [address] | [place] [address] | [phone] | + + + + + Comprehensive [...] | | | | | performed at [facility];[address] | | | | | | [facility];[place], [place] | | | | | | [address] | | | | + + + + + + + + | Specimen | + + | Blood | + + + + + + + | Performing | Address | City/State/Zipcode | Phone Number | | Organization | | | | + + + + + | [facility] | [address] | [place] [address] | [phone] | + + + + + POC [...] | | | POC | performed at [facility];[address] | | LABORATORY | | | | [address];[place], [place] | | | | | | [address] | | | | + + + + + + + + | Specimen | + + | | + + + + + + + | Performing | Address | City/State/Zipcode | Phone Number | | Organization | | | | + + + + + | [facility] | [address] | [place] [address] | [phone] | + + + + + POC [...] | | | POC | performed at [facility];[address] | | LABORATORY | | | | [address];[place], [place] | | | | | | [address] | | | | + + + + + + + + | Specimen | + + | | + + + + + + + | Performing | Address | City/State/Zipcode | Phone Number | | Organization | | | | + + + + + | [facility] | [address] | [place] [address] | [phone] | + + + + + POC Glucose (08/28/2020 7:51 AM PDT) + + + + + + | Component | Value | Ref Range | Performed | Pathologist | | | | | At | Signature | + + + + + + | Glucose, | 55 (L)Comment: Testing | 65 - 99 mg/dL | [facility] | | | POC | performed at [facility];[address] | | LABORATORY | | | | [address];[place] | | | | | | [address] | | | | + + + + + + + + | Specimen | + + | | + + + + + + + | Performing | Address | City/State/Zipcode | Phone Number | | Organization | | | | + + + + + | [facility] | [address] | [place] [address] | [phone] | + + + + + POC Glucose (08/28/2020 7:28 AM PDT) + + + + + + | Component | Value | Ref Range | Performed | Pathologist | | | | | At | Signature | + + + + + + | Glucose, | 39 (LL)Comment: Testing | 65 - 99 mg/dL | [facility] | | | POC | performed at [facility];[address] | | LABORATORY | | | | [address];[place] | | | | | | [address] | | | | + + + + + + + + | Specimen | + + | | + + + + + + + | Performing | Address | City/State/Zipcode | Phone Number | | Organization | | | | + + + + + | [facility] | [address] | [place] [address] | [phone] | + + + + + POC [...] | | | POC | performed at [facility];[address] | | LABORATORY | | | | [address];[place], [place] | | | | | | [address] | | | | + + + + + + + + | Specimen | + + | | + + + + + + + | Performing | Address | City/State/Zipcode | Phone Number | | Organization | | | | + + + + + | [facility] | [address] | [place] [address] | [phone] | + + + + + POC Glucose (08/27/2020 5:20 PM PDT) + + + + + + | Component | Value | Ref Range | Performed | Pathologist | | | | | At | Signature | + + + + + + | Glucose, | 115 (H)Comment: Testing | 65 - 99 mg/dL | [facility] | | | POC | performed at [facility];[address] | | LABORATORY | | | | [address];[place], [place] | | | | | | [address] | | | | + + + + + + + + | Specimen | + + | | + + + + + + + | Performing | Address | City/State/Zipcode | Phone Number | | Organization | | | | + + + + + | [facility] | [address] | [place] [address] | [phone] | + + + + + XR [...] Procedure Note | + + | Wiley, [id number] - 08/27/2020 2:05 PM PDT | | [...] | | | POC | performed at [facility];[address] | | LABORATORY | | | | [address];[place] | | | | | | [address] | | | | + + + + + + + + | Specimen | + + | | + + + + + + + | Performing | Address | City/State/Zipcode | Phone Number | | Organization | | | | + + + + + | [facility] | [address] | [place] [address] | [phone] | + + + + + POC Glucose (08/27/2020 8:04 AM PDT) + + + + + + | Component | Value | Ref Range | Performed | Pathologist | | | | | At | Signature | + + + + + + | Glucose, | 78Comment: Testing | 65 - 99 mg/dL | [facility] | | | POC | performed at [facility];[address] | | LABORATORY | | | | [address];[place], [place] | | | | | | [address] | | | | + + + + + + + + | Specimen | + + | | + + + + + + + | Performing | Address | City/State/Zipcode | Phone Number | | Organization | | | | + + + + + | [facility] | [address] | [place] [address] | [phone] | + + + + + POC [...] | | | POC | performed at [facility];[address] | | LABORATORY | | | | [address];[place], [place] | | | | | | [address] | | | | + + + + + + + + | Specimen | + + | | + + + + + + + | Performing | Address | City/State/Zipcode | Phone Number | | Organization | | | | + + + + + | [facility] | [address] | [place] [address] | [phone] | + + + + + POC [...] | | | POC | performed at [facility];[address] | | LABORATORY | | | | [address];[place] | | | | | | [address] | | | | + + + + + + + + | Specimen | + + | | + + + + + + + | Performing | Address | City/State/Zipcode | Phone Number | | Organization | | | | + + + + + | [facility] | [address] | [place] [address] | [phone] | + + + + + POC [...] | | | POC | performed at [facility];[address] | | LABORATORY | | | | [address];[place] | | | | | | [address] | | | | + + + + + + + + | Specimen | + + | | + + + + + + + | Performing | Address | City/State/Zipcode | Phone Number | | Organization | | | | + + + + + | [facility] | [address] | [place] [address] | [phone] | + + + + + POC [...] | | | POC | performed at [facility];[address] | | LABORATORY | | | | [address];[place] | | | | | | [address] | | | | + + + + + + + + | Specimen | + + | | + + + + + + + | Performing | Address | City/State/Zipcode | Phone Number | | Organization | | | | + + + + + | [facility] | [address] | [place] [address] | [phone] | + + + + + Red [...] | [facility] | | | COMMENT | [facility];[address] | | LABORATORY | | | | [address];[place] [address] | | | | + + + + + + + + | Specimen | + + | | + + + + + + + | Performing | Address | City/State/Zipcode | Phone Number | | Organization | | | | + + + + + | [facility] | [address] | [place] [address] | [phone] | + + + + + POC [...] | | | POC | performed at [facility];[address] | | LABORATORY | | | | [address];[place] | | | | | | [address] | | | | + + + + + + + + | Specimen | + + | | + + + + + + + | Performing | Address | City/State/Zipcode | Phone Number | | Organization | | | | + + + + + | [facility] | [address] | [place] [address] | [phone] | + + + + + Protime INR (08/26/2020 5:20 AM PDT) + + + + + + | Component | Value | Ref Range | Performed | Pathologist | | | | | At | Signature | + + + + + + | INR | 1.1Comment: REFERENCE | | [facility] | | | | RANGE:0.9 [...] | | | | | performed at [facility] | | | | | | [facility];[place], [place] | | | | | | [address] | | | | + + + + + + + + | Specimen | + + | Blood | + + + + + + + | Performing | Address | City/State/Zipcode | Phone Number | | Organization | | | | + + + + + | [facility] | [address] | [place] [address] | [phone] | + + + + + Magnesium (08/26/2020 5:20 AM PDT) + + + + + + | Component | Value | Ref Range | Performed | Pathologist | | | | | At | Signature | + + + + + + | Magnesium | 2.1Comment: Testing | 1.7 - 2.4 mg/dL | [facility] | | | | performed at [facility];[address] | | LABORATORY | | | | [address];[place] | | | | | | [address] | | | | + + + + + + + + | Specimen | + + | Blood | + + + + + + + | Performing | Address | City/State/Zipcode | Phone Number | | Organization | | | | + + + + + | [facility] | [address] | [place] [address] | [phone] | + + + + + CBC [...] | | | Absolute | performed at [facility];[address] | [address] | LABORATORY | | | | [address];[place], [place] | | | | | | [address] | | | | + + + + + + + + | Specimen | + + | Blood | + + + + + + + | Performing | Address | City/State/Zipcode | Phone Number | | Organization | | | | + + + + + | [facility] | [address] | [place] [address] | [phone] | + + + + + Basic [...] 14 (L)Comment: GFR <60: | >60 | [facility] [...] [place], | | | | | | [place] [address] | | | | + + + + + + + + | Specimen | + + | Blood | + + + + + + + | Performing | Address | City/State/Zipcode | Phone Number | | Organization | | | | + + + + + | [facility] | [address] | [place] [address] | [phone] | + + + + + POC Glucose (08/25/2020 8:34 PM PDT) + + + + + + | Component | Value | Ref Range | Performed | Pathologist | | | | | At | Signature | + + + + + + | Glucose, | 99Comment: Testing | 65 - 99 mg/dL | [facility] | | | POC | performed at [facility];[address] | | LABORATORY | | | | [address] [facility];[place], [place] | | | | | | [address] | | | | + + + + + + + + | Specimen | + + | | + + + + + + + | Performing | Address | City/State/Zipcode | Phone Number | | Organization | | | | + + + + + | [facility] | [address] | [place] [address] | [phone] | + + + + + [facility] [...] at | | | | | | [facility];[address];[place] [address] | | | | + + + + + + + + | Specimen | + + | Blood | + + + + + + + | Performing | Address | City/State/Zipcode | Phone Number | | Organization | | | | + + + + + | [facility] | [address] | [place] [address] | [phone] | + + + + + POC [...] | | | POC | performed at [facility];[address] | | LABORATORY | | | | [address];[place] | | | | | | [address] | | | | + + + + + + + + | Specimen | + + | | + + + + + + + | Performing | Address | City/State/Zipcode | Phone Number | | Organization | | | | + + + + + | [facility] | [address] | [place] [address] | [phone] | + + + + + [facility] [...] at | | | | | | [facility];[address];[place] [address] | | | | + + + + + + + + | Specimen | + + | Blood | + + + + + + + | Performing | Address | City/State/Zipcode | Phone Number | | Organization | | | | + + + + + | [facility] | [address] | [place] [address] | [phone] | + + + + + Troponin I (08/25/2020 3:57 PM PDT) + + + + + + | Component | Value | Ref Range | Performed | Pathologist | | | | | At | Signature | + + + + + + | Troponin I | 5.838 ()Comment: | 0.00 - 0.04 | [facility] | | | | 0.04 ng/mL or [...] BACK | | | | | | BY:WES/PARAM Luna @16:58, | | | | | | MYVTesting performed at | | | | | | [facility];[address] | | | | | | [address];[place] [address] | | | | + + + + + + + + | Specimen | + + | Blood | + + + + + + + | Performing | Address | City/State/Zipcode | Phone Number | | Organization | | | | + + + + + | [facility] | [address] | [place] [address] | [phone] | + + + + + Red [...] | [facility] | | | COMMENT | [facility];[address] | | LABORATORY | | | | Blvd;[place] [address] | | | | + + + + + + + + | Specimen | + + | | + + + + + + + | Performing | Address | City/State/Zipcode | Phone Number | | Organization | | | | + + + + + | [facility] | [address] | [place] [address] | [phone] | + + + + + Type [...] + + + | BB BAND | [id number] | | [facility] | | | | | | LABORATORY | | + + + + + + | UNIT # | [id number] | | [facility] | | | | [...] + + + | UNIT # | [id number] | | [facility] | | | | [...] + | CROSSMATCH | COMPATIBLETesting | | [facility] | | | RESULT | performed at [facility];[address] | | LABORATORY | | | | [address];[place] | | | | | | [address] | | | | + + + + + + + + | Specimen | + + | Blood | + + + + + + + | Performing | Address | City/State/Zipcode | Phone Number | | Organization | | | | + + + + + | [facility] | [address] | [place] [address] | [phone] | + + + + + Hepatitis [...] | | Core Ab | performed at [facility], | | LABORATORY | | | Total | [address], [address], | | | | | | [facility] [address] | | | | + + + + + + + + | Specimen | + + | | + + + + + + + | Performing | Address | City/State/Zipcode | Phone Number | | Organization | | | | + + + + + | [facility] | [address] | [place] [address] | [phone] | + + + + + Hepatitis [...] | | Surface Ag | performed at [facility], | | LABORATORY | | | | [address], [address], | | | | | | [place] [address] | | | | + + + + + + + + | Specimen | + + | Blood | + + + + + + + | Performing | Address | City/State/Zipcode | Phone Number | | Organization | | | | + + + + + | [facility] | [address] | [place] [address] | [phone] | + + + + + Hepatitis [...] Amplificationtest | | | | | | ([id number]).Testing | | | | | | performed at [facility], | | | | | | [address], [address], | | | | | | [facility] [address] | | | | + + + + + + + + | Specimen | + + | Blood | + + + + + + + | Performing | Address | City/State/Zipcode | Phone Number | | Organization | | | | + + + + + | [facility] | [address] | [place] [address] | [phone] | + + + + + POC [...] | | | POC | performed at [facility];[address] | | LABORATORY | | | | [address];[place] | | | | | | [address] | | | | + + + + + + + + | Specimen | + + | | + + + + + + + | Performing | Address | City/State/Zipcode | Phone Number | | Organization | | | | + + + + + | [facility] | [address] | [place] [address] | [phone] | + + + + + [facility] [...] at | | | | | | [facility] [address] | | | | | | [address];[place] [address] | | | | + + + + + + + + | Specimen | + + | Blood | + + + + + + + | Performing | Address | City/State/Zipcode | Phone Number | | Organization | | | | + + + + + | [facility] | [address] | [place] [address] | [phone] | + + + + + Troponin I (08/25/2020 11:57 AM PDT) + + + + + + | Component | Value | Ref Range | Performed | Pathologist | | | | | At | Signature | + + + + + + | Troponin I | 6.299 ()Comment: | 0.00 - 0.04 | [facility] | | | | 0.04 ng/mL or [...] | | | | | | BY:RYLEY Baez RN 9RP 1315 | | | | | | [id number] KAWTesting | | | | | | performed at [facility];[address] | | | | | | [address] [facility];[place], [place] | | | | | | [address] | | | | + + + + + + + + | Specimen | + + | Blood | + + + + + + + | Performing | Address | City/State/Zipcode | Phone Number | | Organization | | | | + + + + + | [facility] | [address] | [place] [address] | [phone] | + + + + + ECHO [...] +--------+ + + + | MR max rya | 438.81 | cm/s | [facility] [...] SARS-CoV-2, | NEGATIVEComment: This | NEG | [facility] | | | NAAT | test was [...] | | | | | performed at [facility];[address] | | | | | | [address];[place] | | | | | | [address] | | | | + + + + + + + + | Specimen | + + | Tissue - Entire | | nasopharynx (body | | structure) | + + + + + + + | Performing | Address | City/State/Zipcode | Phone Number | | Organization | | | | + + + + + | [facility] | [address] | [place] [address] | [phone] | + + + + + POC [...] | | | POC | performed at [facility];[address] | | LABORATORY | | | | [address];[place], [place] | | | | | | [address] | | | | + + + + + + + + | Specimen | + + | | + + + + + + + | Performing | Address | City/State/Zipcode | Phone Number | | Organization | | | | + + + + + | [facility] | [address] | [place] [address] | [phone] | + + + + + Troponin I (08/25/2020 8:03 AM PDT) + + + + + + | Component | Value | Ref Range | Performed | Pathologist | | | | | At | Signature | + + + + + + | Troponin I | 6.515 ()Comment: | 0.00 - 0.04 | [facility] [...] 0958 | | | | | | [id number] KAWTesting | | | | | | performed at [facility];[address] | | | | | | [address];[place] | | | | | | [address] | | | | + + + + + + + + | Specimen | + + | Blood | + + + + + + + | Performing | Address | City/State/Zipcode | Phone Number | | Organization | | | | + + + + + | [facility] | [address] | [place] [address] | [phone] | + + + + + CK-[facility] [...] at | | | | | | [facility];[address] [place] [address] | | | | | | [address];[place] [address] | | | | + + + + + + + + | Specimen | + + | Blood | + + + + + + + | Performing | Address | City/State/Zipcode | Phone Number | | Organization | | | | + + + + + | [facility] | [address] | [place] [address] | [phone] | + + + + + Lipid [...] | | | Calculated | performed at [facility], [address] | | LABORATORY | | | | [address], | | | | | | [place] [address] | | | | + + + + + + + + | Specimen | + + | Blood | + + + + + + + | Performing | Address | City/State/Zipcode | Phone Number | | Organization | | | | + + + + + | [facility] | [address] | [place] [address] | [phone] | + + + + + Hemoglobin A1C (08/25/2020 7:48 AM PDT) + + + + + + | Component | Value | Ref Range | Performed | Pathologist | | | | | At | Signature | + + + + + + | Hemoglobin | 7.1 (H)Comment: | 4.8 - 5.6 % | [facility] | | | A1c | Prediabetes: 5.7 [...] [address], | | | | | | [facility] [address], [facility] | | | | | | [address] | | | | + + + + + + + + | Specimen | + + | Blood | + + + + + + + | Performing | Address | City/State/Zipcode | Phone Number | | Organization | | | | + + + + + | [facility] | [address] | [place] [address] | [phone] | + + + + + [place] [...] Procedure Note | + + | Wiley, [id number] - 08/25/2020 7:54 AM PDT | | [...] (500), | | | | | | managing editor Van Joe | | | | [...] | | | | | ONLY, -COMPUTER (655), | | | | | | managing editor Van Joe | | | | [...] Procedure Note | + + | Wiley, [id number] - 08/24/2020 11:32 PM PDT | | [...] | INR | 1.2Comment: REFERENCE | | [facility] | | | | RANGE:0.9 - 1.2 [...] | | | | | performed at [facility] | | | | | | [facility];[place], [place] | | | | | | [address] | | | | + + + + + + + + | Specimen | + + | Blood | + + + + + + + | Performing | Address | City/State/Zipcode | Phone Number | | Organization | | | | + + + + + | [facility] | [address] | [place] [address] | [phone] | + + + + + B Type Natriuretic Peptide (08/24/2020 11:00 PM PDT) + + + + + + | Component | Value | Ref Range | Performed | Pathologist | | | | | At | Signature | + + + + + + | BNP | 2,431.10 (H)Comment: | 0 - 100 pg/mL | [facility] | | | | Testing performed at | | LABORATORY | | | | [facility];[address];[place] [address] | | | | + + + + + + + + | Specimen | + + | Blood | + + + + + + + | Performing | Address | City/State/Zipcode | Phone Number | | Organization | | | | + + + + + | [facility] | [address] | [place] [address] | [phone] | + + + + + Phosphorus (08/24/2020 11:00 PM PDT) + + + + + + | Component | Value | Ref Range | Performed | Pathologist | | | | | At | Signature | + + + + + + | Phosphorus | 7.4 (H)Comment: Testing | 2.3 - 4.8 mg/dL | [facility] | | | | performed at [facility];[address] | | LABORATORY | | | | [address];[place] | | | | | | [address] | | | | + + + + + + + + | Specimen | + + | Blood | + + + + + + + | Performing | Address | City/State/Zipcode | Phone Number | | Organization | | | | + + + + + | [facility] | [address] | [place] [address] | [phone] | + + + + + Magnesium (08/24/2020 11:00 PM PDT) + + + + + + | Component | Value | Ref Range | Performed | Pathologist | | | | | At | Signature | + + + + + + | Magnesium | 2.1Comment: Testing | 1.7 - 2.4 mg/dL | [facility] | | | | performed at [facility];[address] | | LABORATORY | | | | [address] [facility];[place], [place] | | | | | | [address] | | | | + + + + + + + + | Specimen | + + | Blood | + + + + + + + | Performing | Address | City/State/Zipcode | Phone Number | | Organization | | | | + + + + + | [facility] | [address] | [place] [address] | [phone] | + + + + + Troponin I (08/24/2020 11:00 PM PDT) + + + + + + | Component | Value | Ref Range | Performed | Pathologist | | | | | At | Signature | + + + + + + | Troponin I | 8.035 ()Comment: | 0.00 - 0.04 | [facility] | | | | 0.04 ng/mL or [...] NURSING | | | | | | UNITSANTYE F IN ED @ | | | | | | 2345 BY BSREAD BACK | | | | | | RESULTS VERIFIEDTesting | | | | | | performed at [facility];[address] | | | | | | [address];[place], [place] | | | | | | [address] | | | | + + + + + + + + | Specimen | + + | Blood | + + + + + + + | Performing | Address | City/State/Zipcode | Phone Number | | Organization | | | | + + + + + | [facility] | [address] | [place] [address] | [phone] | + + + + + Comprehensive Metabolic Panel (08/24/2020 11:00 PM PDT) + + + + + + | Component | Value | Ref Range | Performed | Pathologist | | | | | At | Signature | + + + + + + | Na | 132 (L) | 135 - 145 | [facility] | | | | | mmol/L | [...] 10 (L)Comment: GFR <60: | >60 | [facility] | | | GFR | [...] | | | | | | MDRD IDNH traceable | | | | | | equation.Testing | | | | | | performed at [facility];[address] | | | | | | [address];[place], [place] | | | | | | [address] | | | | + + + + + + + + | Specimen | + + | Blood | + + + + + + + | Performing | Address | City/State/Zipcode | Phone Number | | Organization | | | | + + + + + | [facility] | [address] | [place] [address] | [phone] | + + + + + CBC with Differential (08/24/2020 11:00 PM PDT) + + + + + + | Component | Value | Ref Range | Performed | Pathologist | | | | | At | Signature | + + + + + + | WBC | 10.66 | 3.80 - 11.00 | [facility] | | | | | K/uL | LABORATORY | | + + + + + + | Red Blood | 2.68 (L) | 4.20 - 5.70 | [facility] | | | Cells | | M/uL [...] 0.02Comment: Testing | 0.00 - 0.10 | [facility] | | | Absolute | performed at [facility];[address] | K/uL | LABORATORY | | | | [address] [facility];[place], [place] | | | | | | [address] | | | | + + + + + + + + | Specimen | + + | Blood | + + + + + + + | Performing | Address | City/State/Zipcode | Phone Number | | Organization | | | | + + + + + | [facility] | [address] | [place] [address] | [phone] | + + + + + documented in this encounter Visit Diagnoses + + | Diagnosis | + + | Acute respiratory failure with hypoxia (HCC) - Primary Acute respiratory failure | + + | ESRD needing dialysis ([facility]) End stage renal disease | + + | Hypervolemia, unspecified hypervolemia type | + + | NSTEMI (non-ST elevated myocardial infarction) ([facility]) Acute myocardial infarction, | | subendocardial infarction, episode of care unspecified | + + | Anemia of chronic renal failure, unspecified CKD stage | + + | Congestive heart failure, unspecified HF chronicity, unspecified heart failure type | | (HCC) | + + | CKD (chronic kidney disease) stage 5, GFR less than 15 ml/min ([facility]) Chronic kidney | | disease, Stage V | + + | Acute on chronic systolic congestive heart failure (HCC) Acute on chronic systolic | | heart failure | + + | ESRD on hemodialysis (HCC) End stage renal disease | + + | Anemia in ESRD (end-stage renal disease) (HCC) Anemia in chronic kidney disease | + [...] + | COPD (chronic obstructive pulmonary disease) ([facility]) Chronic airway obstruction, not | | elsewhere classified | + + | Diabetes mellitus ([facility]) Type II or unspecified type diabetes mellitus without mention | | of complication, not stated as uncontrolled | + + | History of stroke Transient ischemic attack (TIA), and cerebral infarction without | | residual deficits | + + | Acute exacerbation of CHF (congestive heart failure) ([facility]) Congestive heart failure, | | unspecified | [...] 20 7:41 | | | | | Fri08/25/20 at 0900, Retime | | AM PDT [...] | | | | | | on Fri08/27/20 at 1445, Keep in | | | [...] | Arm-Left | | SOLOSTAR) injection (pen) | | 20 9:26 | | | Upper | | Units 13 Units, Subcutaneous, | | PM PDT | | | | | NIGHTLY, First dose (after last | | | | | | | modification) on Fri08/30/20 at | | | | | | [...] | | | | | | | 5739-3275 Use NIGHT DOSE for | | | | | | | doses scheduled: HS, | | | | | | | Nighttime 1561-9354 If the BG is | | | [...] PDT | | | | | Starting Tu08/29/20 at 1320, For | | | | [...] | | | DAILY, First dose on Fri08/28/20 | | AM PDT | | | [...] | For 1 dose, With the 2 senokot, | | PM PDT | | | [...] | | | | Chest pain, Starting 08/25/20 | | | | | | | [...] | | | | | Vomiting, Starting 08/25/20 at | | | | | | [...] - PRN, Hypotension, | | | Starting Fri08/25/20 at 1607, | | | Treatment date(s): [...] - PRN, Hypotension, | | | Starting 08/28/20 at 1353, | | | Treatment date(s): [...]
--- OUTSIDE RECORDS SUMMARY | ~2020-09-11 | XMS | Encounter Summary ---
Demographics + + + | Address | [address] | | | [place] [address] | + + + | Home Phone [...] Providers + +------+ + | Care Piano Sounding Board Matcher Name | Role | Phone | + +------+ + | Rahul Silva MD | PCP | | + +------+ + Encounter Details +--------+ + + + + | Date | Type | Department | Care Team | Description | +--------+ + + + + | 08/19/ | Orders Only | [facility] | Farrukh Acuna MD | | | 2018 | | NEPHROLOGY [place] | [address] | | | | | [address] | [address] [place], [place] | | | | | [address] [place], [place] | [address] | | | | | [address] | | | | | | [phone] | | | +--------+ + + + [...] | | | | | | [place] [address] | | | | | | [phone] | | | | | | | [...] | | | Visit | | [address] [place], [place] | | | | | | [address] | | | | | | | | +--------+ + + + + documented as of this encounter Procedures + +--------+ + + + | Procedure Name | Priori | Date/Time | Associated Diagnosis | Comments | | | ty | | | | + +--------+ + + + | EXTERNAL LAB: [facility] | Routin | 08/19/2018 | | Results [...]
--- OUTSIDE RECORDS SUMMARY | ~2020-09-11 | XMS | Encounter Summary ---
Demographics + + + | Address | [address] | | | [place] [address] | + + + | Home Phone [...] Team Providers + +------+ + | Care Firearms Assembly Supervisor Name | Role | Phone | [...] + + | 06/08/ | Telephone | [facility] | LaiElmira rodas | Other | | 2020 | | NEPRHOLOGY [place] | A, Medical | (Hospitalization ) | | | | [address] | Daycare Teacher | | | | | [address] [place], [place] | | | | | | [address] | | | | | | [phone] | | | +--------+ + + + [...] Miscellaneous Notes Telephone Encounter - Elmira Hoyt, Wood Room Supervisor - 06/08/2020 10:11 AM PDTPati ents daughter called to inform us that her father was taken by ambulance this morning to [facility]. He was suffering from confusion and [...] | | 2019 | Visit | | FACILITIES CUSTODIAN [address] | | | | | | [address], | | | | | | [place] [address] | | | | | | [phone] | | | | | | | [...] [place] | | | | | | [address] | | | | | | | | +--------+ + + + + documented as of this encounter Visit Diagnoses Not on filedocumented in this encounter"
--- OUTSIDE RECORDS SUMMARY | ~2020-09-11 | XMS | Encounter Summary ---
Demographics + + + | Address | [address] | | | [place] [address] | + + + | Home Phone [...] Providers + +------+ + | Care Insole Department Worker Name | Role | Phone | [...] | Transaction, | | | | | [place], [place] | Provider Unknown | | | | | [address] | [phone] | | | | | [phone] | | | +--------+ + + + [...] | | | | | | [place] [address] | | | | | | [phone] | | | | | | | [...] | | | Visit | | [address] [place], [place] | | | | | | [address] | | | | | | | [...]
--- OUTSIDE RECORDS SUMMARY | ~2020-09-11 | XMS | Encounter Summary ---
Demographics + + + | Address | [address] | | | [place] [address] | + + + | Home Phone [...] Providers + +------+ + | Care Hand Riveter Name | Role | Phone | + +------+ + | Rahul Silva MD | PCP | | + +------+ + Encounter Details +--------+ + + + + | Date | Type | Department | Care Team | Description | +--------+ + + + + | 01/26/ | Orders Only | [facility] | Conversion | | | 2014 | | [facility] [place] | Transaction, | | | | | [address] | Provider Unknown | | | | | [address] [place], [place] | [phone] | | | | | [address] | | | | | | [phone] | | | +--------+ + + + [...] | | | | | | [place] [address] | | | | | | [phone] | | | | | | | [...] [place] | | | | | | [address] | | | | | | | [...] | | | LAB | | | Afghan | | | | | + + [...]
--- OUTSIDE RECORDS SUMMARY | ~2020-09-11 | XMS | Encounter Summary ---
Demographics + + + | Address | [address] | | | [place] [address] | + + + | Home Phone [...] Organization | [facility] | | [...] Providers + +------+ + | Care Senior Copywriter Name | Role | Phone | + +------+ + | Rahul Silva MD | PCP | | + +------+ + Encounter Details +--------+ + + + + | Date | Type | Department | Care Team | Description | +--------+ + + + + | 07/27/ | Orders Only | [facility] | Farrukh Acuna MD | Chronic kidney | | 2019 | | [facility] | [address] | disease, stage IV | | | | [address] | [address] [place], [place] | (severe) (HCC); | | | | [address] [place], [place] | [address] | Chronic kidney | | | | [address] | | disease, stage IV | | | | [phone] | | (severe) (HCC); | | | [...] | | 2019 | Visit | | [address] | | | | | | [address], | | | | | | [place] [address] | | | | | | [phone] | | | | | | | [...] | | | Visit | | [address] [place] | | | | | | [address] | | | | | | | [...]
--- OUTSIDE RECORDS SUMMARY | ~2020-09-11 | XMS | Encounter Summary ---
Demographics + + + | Address | [address] | | | [place] [address] | + + + | Home Phone [...] [place] | | | | | [address] | | + + + + + Care Team Providers + +------+ + | Care Assembler Wire Mesh Gate Name | Role | Phone | + [...] Vyas | | | | | | [facility], [address] [place] [address] | | | | | | [place], [place] | | | | | | [address] | | | | | | [phone] | | | +--------+ + + + [...] of this encounter Discharge Summaries Interface, Machine Fastener In - 12/22/2006 3:12 AM PST [place] [address] [place], [place] [address] [facility] MEDICAL SUMMARY OF HOSPITALIZATION Med Rec No.: [id number] Admission Date: 04/06/98 Name: Kavon Andujar Discharge Date: 04/08/98 STAFF PHYSICIAN: Galo Arora M.D. Data Warehouse Specialist, Division of Plastic & Reconstructive Surgery PRINCIPAL [...] M.D. Resident, Plastic Surgery Galo Arora M.D. Data Warehouse Specialist, Division of Plastic & Reconstructive Surgery QIANA/charo P cc: GRIFFIN ASHER MD [address] [facility] [place] [address] documented in this encounter Plan of Treatment Not on filedocumented as of this encounter Visit Diagnoses Not on filedocumented in this encounter"
--- OUTSIDE RECORDS SUMMARY | ~2020-09-11 | XMS | Encounter Summary ---
Demographics + + + | Address | [address] | | | [place] [address] | + + + | Home Phone [...] [place] | | | | | [address] | | + + + + + Care Team Providers + +------+ + | Care Cardiology Technologist Name | Role | Phone | [...] [address] | | | | | | [place], [place] | | | | | | [address] | | | +--------+ + + + [...] as of this encounter Progress Notes Interface, Contour Band Saw Operator Vertical In - 03/27/2007 3:12 AM PDT CLINIC [...] an abnormal AC-BE, he was referred to [facility] for colonoscopy. MEDICATIONS: 1. Vicodin. [...] Dr. Valles who is his physician in [place], [place]. He has made me aware that [...] M.D. Fellow, Gastroenterology SHANEL/stephon cc: ARIA WATKINS [facility] [place] documented in this encounter Plan of Treatment Not on filedocumented as of this encounter Visit Diagnoses Not on filedocumented in this encounter"
--- OUTSIDE RECORDS SUMMARY | ~2020-09-11 | XMS | Encounter Summary ---
Demographics + + + | Address | [address] | | | [place] [address] | + + + | Home Phone [...] + +------+ + | Care Automotive Sales Representative Name | Role | Phone | + +------+ + | Rahul Silva MD | PCP | | + +------+ + Encounter Details +--------+ + + + + | Date | Type | Department | Care Team | Description | +--------+ + + + + | 08/13/ | Orders Only | [facility] | Farrukh Acuna MD | | | 2017 | | NEPHROLOGY SUPERIOR | [address] | | | | | [address] | [address] [place], [place] | | | | | [address] [place] | [address] | | | | | [address] | | | | | | [phone] | | | +--------+ + + + [...] | | | | | | [place] [address] | | | | | | [phone] | | | | | | | [...] | | | Visit | | [address] [place], [place] | | | | | | [address] | | | | | | | | +--------+ + + + + documented as of this encounter Procedures + +--------+ + + + | Procedure Name | Priori | Date/Time | Associated Diagnosis | Comments | | | ty | | | | + +--------+ + + + | EXTERNAL LAB: [facility] | Routin | 08/13/2017 | | Results [...]
--- OUTSIDE RECORDS SUMMARY | ~2020-09-11 | XMS | Encounter Summary ---
Demographics + + + | Address | [address] | | | [place] [address] | + + + | Home Phone [...] Team Providers + +------+ + | Care Folding Rules Printing Machine Operator Name | Role | Phone [...] + + | 01/30/ | Documentati | [facility] | Simon, | Results (01/25/20) | | 2020 | on | NEPHROLOGY [place] | [facility] | | | | | [address] | Metallurgical Engineering Teacher | | | | | [address] [place], [place] | | | | | | [address] | | | | | | [phone] | | | +--------+ + + + [...] 2019 | Visit | | DIRECTOR OF ARCHIVES [address] | | | | | | [address] [place], | | | | | | [place] [address] | | | | | | [phone] | | | | | | | [...] [place] | | | | | | [address] | | | | | | | [...]
--- OUTSIDE RECORDS SUMMARY | ~2020-09-11 | XMS | Encounter Summary ---
Demographics + + + | Address | [address] | | | [place] [address] | + + + | Home Phone [...] Team Providers + +------+ + | Care Union Representative Name | Role | Phone | + +------+ + | Rahul Silva MD | PCP | | + +------+ + Encounter Details +--------+ + + + + | Date | Type | Department | Care Team | Description | +--------+ + + + + | 07/11/ | Orders Only | [facility] | Farrukh Acuna MD | | | 2013 | | NEPHROLOGY [place] | [address] | | | | | [address] | [address] [place], [place] | | | | | [address] [place] | [address] | | | | | [address] | | | | | | [phone] | | | +--------+ + + + [...] | 2019 | Visit | | MANAGER SECURITY [address] | | | | | | [address], | | | | | | [place] [address] | | | | | | [phone] | | | | | | | [...] [place] | | | | | | [address] | | | | | | | [...]
--- OUTSIDE RECORDS SUMMARY | ~2020-09-11 | XMS | Encounter Summary ---
Demographics + + + | Address | [address] | | | [place] [address] | + + + | Home Phone [...] Team Providers + +------+ + | Care Gripper Machine Operator Name | Role | Phone | + +------+ + | Mehrdad Bergman | PCP | | + +------+ + Encounter Details +--------+ + + + + | Date | Type | Department | Care Team | Description | +--------+ + + + + | 06/05/ | Virtual | [facility] | Farrukh Acuna MD | CKD (chronic kidney | | 2019 | Office | NEPHROLOGY [place] | [address] | disease) stage 5, | | | Visit | [address] | [address] [place], [place] | GFR less than 15 | | | | [address] | [address] | ml/min (HCC) | | | | [place], [place] | | (Primary Dx); Anemia | | | | [address] | | of chronic kidney | | | | [phone] | | failure, stage 5 | | | | | | ([facility]); Persistent | | | | | | proteinuria; | | | | | | Essential | | | | | | hypertension; Iron | | | | | | deficiency; | | | | | | Secondary | | | | | | hyperparathyroidism | | | | | | ([facility]); 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 I see no need to send him [...] 03/01/19. He was in the ED at [facility] in late 05/2020 with CP & [...] 10/2016 with severe pneumonia, severe ZEKE; needed BOX TOE FLANGER STITCHDOWNS for ~5 weeks b efore renal function recovery mid 12/2016. He was admitted to [facility] for 3 nights in July 2016 [...] 10/2016 with severe pneumonia, severe ZEKE; needed BOX TOE FLANGER STITCHDOWNS for ~5 weeks b efore renal function [...] Also: I see no need for acute BOX TOE FLANGER STITCHDOWNS. I see no need to send him [...] or concerns. Truly yours, Farrukh Acuna MD [facility] This exam was initially conducted via a secure 256-bit AES encrypted bidirectional video se ssion. You have chosen to receive care through the use of telemedicine. Telemedicine enables [facility] care providers at different locations [...] | | 2019 | Visit | | ELECTRIC TRUCK DRIVER [address] | | | | | | [address], | | | | | | [place] [address] | | | | | | [phone] | | | | | | | [...] [place] | | | | | | [address] | | | | | | | | +--------+ + + + + documented as of this encounter Visit Diagnoses + + | Diagnosis | + + | CKD (chronic kidney disease) stage 5, GFR less than 15 ml/min ([facility]) - Primary Chronic | | kidney disease, Stage V | + + | Anemia of chronic kidney failure, stage 5 ([facility]) | + + | Persistent proteinuria Proteinuria [...]
--- OUTSIDE RECORDS SUMMARY | ~2020-09-11 | XMS | Encounter Summary ---
Demographics + + + | Address | [address] | | | [place] [address] | + + + | Home Phone [...] Providers + +------+ + | Care Financial Engineer Name | Role | Phone | + +------+ + | Rahul Silva MD | PCP | | + +------+ + Encounter Details +--------+ + + + + | Date | Type | Department | Care Team | Description | +--------+ + + + + | 05/27/ | Orders Only | [facility] | Conversion | | | 2019 | | NEPHROLOGY [place] | Transaction, | | | | | [address] | Provider Unknown | | | | | [address] | | | | | | [address] | (Fax) | | | | | [phone] | | | +--------+ + + + [...] | | | | | | [place] [address] | | | | | | [phone] | | | | | | | [...] | | | Visit | | [address] [place], [place] | | | | | | [address] | | | | | | | [...]
--- OUTSIDE RECORDS SUMMARY | ~2020-09-11 | XMS | Encounter Summary ---
Demographics + + + | Address | [address] | | | [place] [address] | + + + | Home Phone [...] Providers + +------+ + | Care Supervisor Benzene Refining Name | Role | Phone | + +------+ + | Rahul Silva MD | PCP | | + +------+ + Encounter Details +--------+ + + + + | Date | Type | Department | Care Team | Description | +--------+ + + + + | 12/06/ | Orders Only | [facility] | Farrukh Acuna MD | Essential | | 2020 | | [facility]Y [facility] | [address] | hypertension | | | | [address] | [address] [place], [place] | (Primary Dx); CKD | | | | [address] [place], [place] | [address] | (chronic kidney | | | | [address] | | disease) stage 5, | | | | [phone] | | GFR less than 15 | | | | | | ml/min ([facility]); Anemia | | | | | | of chronic kidney | | | | | | failure, stage 5 | | | | | | ([facility]); | | | | | | Hypomagnesemia; [...] | | 2019 | Visit | | FILER AND SANDER [address] | | | | | | [address] [place], | | | | | | [place] [address] | | | | | | [phone] | | | | | | | [...] [place] | | | | | | [id number] | | | | | | | [...] Anemia of chronic kidney failure, stage 5 ([facility]) | + + | Hypomagnesemia Disorders of magnesium metabolism | + + | Persistent proteinuria Proteinuria | + + documented in this encounter"
--- OUTSIDE RECORDS SUMMARY | ~2020-09-11 | XMS | Encounter Summary ---
Demographics + + + | Address | [address] | | | [place] [address] | + + + | Home Phone [...] Providers + +------+ + | Care Data Power Consultant Name | Role | Phone | [...] + + | 12/02/ | Documentati | [facility] | Simon, | Results (11/29/19) | | 2020 | on | NEPHROLOGY [place] | [facility] | | | | | [address] | Senior Packaging Engineer | | | | | [address] [place], [place] | | | | | | [address] | | | | | | [phone] | | | +--------+ + + + [...] | | 2019 | Visit | | CONSTRUCTION GRIP [address] | | | | | | [address], | | | | | | [place] [address] | | | | | | [phone] | | | | | | | [...] [place] | | | | | | [address] | | | | | | | [...]
--- OUTSIDE RECORDS SUMMARY | ~2020-09-11 | XMS | Encounter Summary ---
Demographics + + + | Address | [address] | | | [place] [address] | + + + | Home Phone [...] [place] | | | | | [address] | | + + + + + Care Team Providers + +------+ + | Care Director Of Billing Name | Role | Phone | + [...] Clinic | | | | | | [facility], [address] | | | | | | [place], [place] | | | | | | [address] | | | | | | [phone] | | | +--------+ + + + [...] as of this encounter Progress Notes Interface, System Designer In - 01/03/2007 5:08 AM PST CLINIC DATE: 12/22/97 Mr. Anudjar is referred by Dr. Jerry Smiley in the [place] area. He is currently followed by the Anesthesia Pain Service at [facility], and also recently has been followed by Dr. Miose in Neurosurgery and Dr. Carlson in Vascular [...] under Dr. Robert Carlson's supervision here at [facility]. His pain continued, exacerbated by a fall [...] procedure at this time. Eric Mcclure M.D. Sap Sd Analyst, Department of Orthopaedics and Rehabilitation AY/sara A cc: Jerry Smiley M.D. (with letter) [address] [facility] [address] [place] [address] Robert Carlson M.D. FAX: [phone] Alina Moise M.D. FAX: [phone] [facility] ClinicFAX: [phone] documented in this encounter Plan of Treatment Not on filedocumented as of this encounter Visit Diagnoses Not on filedocumented in this encounter
--- OUTSIDE RECORDS SUMMARY | 2020-09-11 19:20 | XMS ---
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 Care History Medical/Surgical 08/16/2020 [facility] - [facility] CONTACTED PCP OFFICE- DISCUSSED ONGOING ED VISIT CONCERNS- - PATIENT WAS LAST SEEN BY PCP ON 08/11/2020, CANCELLED APT ON 08/14/2020 AND HAS A FOLLOW UP APT ON 08/24/2020. - [facility] AT [facility] NOTIFIED OF ED VISIT 08/15/2020. 05/17/2020 [facility] Called PCP office to verify respiratory medication regimine. Patient has been prescribed DANA\T\#39;s in MDI and nebulizor form and triple therapy for mantanence inhaled medication. Patient\T\#39;s pharmacy history indicates that he is filling his inhaled medications. Will call patient\T\#39;s child day care teacher to offer inhaler training. 11/10/2019 [facility] - PLEASE MAKE SURE- ALL RECORDS ARE SENT TO DR BARTON-PATIENT FORMULA WEIGHER IN [place]. E.Edin VISIT COUNT (12 MO.) 1 [facility] 14 [facility]. TOTAL 15 NOTE: Visits indicate total known visits. ED/UCC VISIT TRACKING (12 MO.) 09/11/2020 19:18 [facility] [place] TYPE: Emergency COMPLAINT: - CHEST PAIN 08/24/2020 22:50 [facility] TYPE: Emergency DIAGNOSES: - End stage renal disease - Shortness of Breath - Non-ST elevation (NSTEMI) myocardial infarction - Dependence on renal dialysis - Fluid overload, unspecified - Other specified abnormal findings of blood chemistry - Heart failure, unspecified - Chronic kidney disease, unspecified - Anemia in chronic kidney disease 08/24/2020 19:05 [facility] [place] TYPE: Emergency COMPLAINT: - WEAKNESS DIAGNOSES: - Allergy status to other drugs, medicaments and biological sub - Nicotine dependence, unspecified, uncomplicated - oil heaterman (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 of aspirin - 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 - End stage renal disease - Heart failure, unspecified - care home (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 of insulin - Type 2 diabetes mellitus with diabetic chronic kidney disease - Hypertensive heart and chronic kidney disease with heart fail - Chronic obstructive pulmonary disease, unspecified - Shortness of breath - Personal history of transient ischemic attack (TIA), and cere 08/16/2020 18:30 [facility] [place] TYPE: Emergency COMPLAINT: - DIFFICULTY BREATHING 08/15/2020 13:19 [facility] [place] TYPE: Emergency COMPLAINT: - SOB DIAGNOSES: - Chronic kidney disease, unspecified - care home (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 of insulin - Allergy status to other drugs, medicaments and biological sub - Chronic kidney disease, stage 4 (severe) - Nicotine dependence, unspecified, uncomplicated - Dyspnea, unspecified - Hypertensive heart and chronic kidney disease with heart fail - Chronic obstructive pulmonary disease, unspecified - Shortness of breath - 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 - Type 2 diabetes mellitus with diabetic chronic kidney disease - oil heaterman (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 of aspirin - Heart failure, unspecified - Personal history of transient ischemic attack (TIA), and cere 08/01/2020 23:03 [facility] [place] TYPE: Emergency COMPLAINT: - CHEST PAIN DIAGNOSES: - Dependence on renal dialysis - care home (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 of insulin - Chest pain, unspecified - Chronic kidney disease, stage 4 (severe) - Heart failure, unspecified - Hypertensive heart and chronic kidney disease with heart fail - Nicotine dependence, unspecified, uncomplicated - 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 - Type 2 diabetes mellitus with diabetic chronic kidney disease - Chronic obstructive pulmonary disease, unspecified 06/08/2020 06:43 [facility] [place] TYPE: Emergency COMPLAINT: - WEAKNESS, ABD PAIN DIAGNOSES: - Type 2 diabetes mellitus with diabetic chronic kidney disease - Other half-way (current) drug therapy - oil heaterman (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 of insulin - Allergy status [...] Chronic obstructive pulmonary disease, unspecified - 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 - Allergy status to other drugs, medicaments and biological sub - oil heaterman (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 of insulin - Chest pain, unspecified - Personal history of nicotine dependence - Chronic kidney disease, stage 4 (severe) - Type 2 diabetes mellitus with diabetic chronic kidney disease - Heart failure, unspecified - Hypertensive heart and chronic kidney disease with heart fail 05/11/2020 17:15 [facility] [place] TYPE: Emergency COMPLAINT: - SOB, WEAK, HIGH PULSE RATE DIAGNOSES: - oil heaterman (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 of insulin - Heart failure, unspecified - care home (current) use of aspirin - Allergy status to other drugs, medicaments and biological sub - Weakness - Chronic kidney disease, stage 4 (severe) - Hypertensive heart and chronic kidney disease with heart fail - Chronic obstructive pulmonary disease, unspecified - Nicotine dependence, unspecified, uncomplicated - 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 - Type 2 diabetes [...] - Nicotine dependence, unspecified, uncomplicated - 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 - Chest pain, unspecified [...] Anemia in chronic kidney disease - 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 - Personal history of nicotine dependence - Hypertensive heart and chronic kidney disease with heart fail - Chronic kidney disease, stage 4 (severe) - care home (current) use of insulin - Acute kidney failure, unspecified - Dependence on other enabling machines and devices - Vascular dementia without behavioral disturbance - care home (current) use of anticoagulants - care home (current) use of aspirin - Type 2 [...] nicotine dependence - Chest pain, unspecified - care home (current) use of aspirin - Personal history of transient ischemic attack (TIA), and cere - oil heaterman (current) use of insulin - Hypomagnesemia - Hypertensive heart and chronic kidney disease with heart fail - Chronic kidney disease, stage 4 (severe) - Other half-way (current) drug therapy 09/27/2019 12:22 [facility] [place] TYPE: Emergency COMPLAINT: - SOB INPATIENT VISIT TRACKING (12 MO.) 08/24/2020 22:50 [facility] TYPE: Internal Medicine DIAGNOSES: - End stage renal disease - Acute on chronic systolic (congestive) heart failure - Non-ST elevation (NSTEMI) myocardial infarction - Acute pulmonary edema - Fluid overload, unspecified - Other disorders of plasma-protein metabolism, not elsewhere c - Essential (primary) hypertension - Chronic kidney disease, unspecified - Other chronic diseases of tonsils and adenoids - Malignant neoplasm of tonsil, unspecified - Other specified personal risk factors, not elsewhere classifi - Other disorders of phosphorus metabolism - Localized enlarged lymph nodes - Hypo-osmolality and hyponatremia - Hemoptysis - Dependence on renal dialysis - Anemia in chronic kidney disease - Acute respiratory failure with hypoxia - Localized edema - Heart failure, unspecified - Chronic kidney disease, stage 5 - Acidosis 08/16/2020 21:01 [facility] [place] TYPE: Medical Surgical COMPLAINT: - HYPOXIC RESPIRATORY FAILURE DIAGNOSES: - Hyperlipidemia, unspecified - Chronic kidney disease, stage 4 (severe) - Hyperlipidemia, unspecified - Contact with and (suspected) exposure to other viral communic - Chronic kidney disease, stage 4 (severe) - Acute and chronic respiratory failure with hypoxia - Type 2 diabetes mellitus with diabetic chronic kidney disease - oil heaterman (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 of antithrombotics/antiplatelets - Acidosis - Acute respiratory failure with hypoxia - Allergy status to other drugs, medicaments and biological sub - Chronic obstructive pulmonary disease, unspecified - Acquired absence of left leg below knee - Acute and chronic respiratory failure with hypoxia - Opioid dependence, uncomplicated - Contact with and (suspected) exposure to other viral communic - Other half-way (current) drug therapy - oil heaterman (current) use of aspirin - Hypertensive heart and chronic kidney disease with heart fail - Type 2 diabetes mellitus with diabetic chronic kidney disease - Anemia in chronic kidney disease - Obstructive sleep apnea (adult) (pediatric) - Chronic obstructive pulmonary disease, unspecified - 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 - Nicotine dependence, cigarettes, uncomplicated - oil heaterman (current) use of insulin - Allergy status to other drugs, medicaments and biological sub - Dependence on wheelchair - oil heaterman (current) use of aspirin - Hyperkalemia - Anemia in chronic kidney disease - oil heaterman (current) use of insulin - Acute systolic (congestive) heart failure - Anxiety disorder, unspecified - Opioid dependence, uncomplicated - Acute systolic (congestive) heart failure - care home (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 of antithrombotics/antiplatelets - Nicotine dependence, cigarettes, uncomplicated - Hypertensive heart and chronic kidney disease with heart fail - Anxiety disorder, unspecified - Hyperkalemia - Acquired absence of left leg below knee - Dependence on wheelchair - Acidosis - Obstructive sleep apnea (adult) (pediatric) 09/27/2019 16:43 [facility] [place] TYPE: Medical Surgical COMPLAINT: - PNA DIAGNOSES: - Adverse effect of other opioids, initial encounter - care home (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 of antithrombotics/antiplatelets - Anemia in chronic kidney disease - Acquired absence of left leg above knee - 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 classified elsewh - Nicotine dependence, unspecified, uncomplicated - Panlobular emphysema - Panlobular emphysema - Type 2 diabetes mellitus with diabetic chronic kidney disease - care home (current) use of insulin - Allergy status to other drugs, medicaments and biological sub - Opioid dependence, uncomplicated - 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 - Nicotine dependence, unspecified, uncomplicated - Pneumonia due to Streptococcus pneumoniae - Chronic pain syndrome - Dependence on wheelchair - care home (current) use of insulin - Acquired absence [...] Hyperlipidemia, unspecified - Drug induced constipation - oil heaterman (current) use of aspirin - Anemia in chronic kidney disease - 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
[2020-09-11] MEDS ORDERED: ISOSORBIDE MONO30 MG PO (19:42)
--- NOTE | 2020-09-12 20:31 | EKG ---
[facility] [address] [facility] [place] [address] Signed Sinus rhythm with marked sinus arrhythmia Anterior infarct (cited on or before 11-SEP-2020) ST \T\ T wave abnormality, consider lateral ischemia Prolonged QT Abnormal ECG When compared with ECG of 24-AUG-2020 19:11, QRS duration has decreased Serial changes of evolving Anterior infarct present Confirmed by BROOKE FERNÁNDEZ DO ([id number]) on 09/12/2020 8:31:32 PM Electronically Signed By: BROOKE FERNÁNDEZ DO 09/12/202030 PATIENT NAME: PORFIRIO ZAVALA Electrocardiogram DATE OF : 40 PHYSICIAN: BROOKE FERNÁNDEZ DO REPORT #: [id number] REPORT IS CONFIDENTIAL AND NOT TO BE RELEASED WITHOUT AUTHORIZATION
--- NOTE | 2020-09-12 20:31 | EKG ---
[facility] [address] [facility] [place], [place] [address] Signed Sinus tachycardia with premature atrial complexes Possible Anterior infarct (cited on or before 11-SEP-2020) Abnormal ECG When compared with ECG of 11-SEP-2020 19:23, (Unconfirmed) premature atrial complexes are now present Serial changes of Anterior infarct present Confirmed by BROOKE FERNÁNDEZ DO ([id number]) on 09/12/2020 8:31:40 PM Electronically Signed By: BROOKE FERNÁNDEZ DO 09/12/202030 PATIENT NAME: PORFIRIO ZAVALA OSWALDO Electrocardiogram DATE OF : 40 PHYSICIAN: BROOKE FERNÁNDEZ DO REPORT #: [id number] REPORT IS CONFIDENTIAL AND NOT TO BE RELEASED WITHOUT AUTHORIZATION
== END 2020-09-12 01:30 | disposition short-term general hospital (02) ==
LOC: ED 19:18
DX: K92.2 Gastrointestinal hemorrhage, unspecified (principal); E11.22 Type 2 diabetes mellitus with diabetic chronic kidney disease; I13.0 Hypertensive heart and chronic kidney disease with heart failure and stage 1 through stage 4 chronic kidney disease, or unspecified chronic kidney disease; N18.4 Chronic kidney disease, stage 4 (severe); J44.9 Chronic obstructive pulmonary disease, unspecified; Z86.73 Personal history of transient ischemic attack (TIA), and cerebral infarction without residual deficits; Z87.891 Personal history of nicotine dependence; Z88.8 Allergy status to other drugs, medicaments and biological substances; Z79.899 Other long term (current) drug therapy; Z79.4 Long term (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 of insulin; Z79.82 Long term (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 of aspirin
CPT/HCPCS: 36430; 71045; 80053; 82803; 83735; 83880; 84484; 85025; 86850; 86900; 86901; 86920; 93005; 93010; 94644; 96374; 96375; 99285-25; J2270

== ENCOUNTER 2020-09-15 20:28 | Emergency (ER) | payer MEDICARE, OTHER ==
[~2020-09-15] VITALS: Ht 172.7 cm; Wt 83.7 kg
--- OUTSIDE RECORDS SUMMARY | ~2020-09-15 | XMS | Encounter Summary ---
Demographics + + + | Address | [address] | | | [place] [address] | + + + | Home Phone | | + + + | Preferred Language | Unknown | + + + | Marital Status | | + + + | Catholic Affiliation | 1077 | + + + | Race | White | + + + | Ethnic Group | Not or | + + + Author + + + | Author | [facility] | | | and [place] | + + + | Organization | [facility] | | | and [...] Team Providers + +------+ + | Care Administrative Director Name | Role | Phone | + +------+ + | Rahul Silva MD | PCP | | + +------+ + Encounter Details +--------+ + + + + | Date | Type | Department | Care Team | Description | +--------+ + + + + | 11/09/ | Orders Only | [facility] | Olman Toussaint MD | | | 2015 | | [address] | [address] | | | | | [place], [place] | [place], [place] | | | | | [address] | [address] | | | | | [phone] | | | | | | | [...] | +--------+ + + + + | 09/19/ | Office | Cardiology | BlasMarch, | | | 2019 | Visit | | [address] | | | | | | [address], | | | | | | [place] [address] | | | | | | [phone] | | | | | | | | +--------+ + + + + | 09/19/ | Clinical | Cardiology | | | | 2019 | Support | | | | +--------+ + + + + | 10/03/ | Office | Cardiology | Ron Orosco MD | | | 2019 | Visit | | [address] | | | | | | [place] | | | | | | [address] | | | | | | | | +--------+ + + + + | 10/30/ | Virtual | Nephrology | Farrukh Acuna MD | | | 2019 | Office | | [address] | | | | Visit | | [address] [place] | | | | | | [address] | | | | | | | | +--------+ + + + + documented as of this encounter Procedures + +--------+ + + + | Procedure Name | Priori | Date/Time | Associated Diagnosis | Comments | | | ty | | | | + +--------+ + + + | MAGNESIUM | Routin | 11/09/2016 | | Results for this | | | e | 4:37 AM | | procedure are in the | | | | PST | | results section. | + +--------+ + + + documented in this encounter Results Magnesium (11/09/2016 4:37 AM PST) + +-------+ + + + | Component | Value | Ref Range | Performed | Pathologist | | | | | At | Signature | + +-------+ + + + | Magnesium | 1.8 | 1.7 - 2.4 mg/dL | EXTERNAL | | | | | | LAB | | + +-------+ + + + + + | Specimen | + + | | + + + + + | Narrative | Performed At | + + + | Attending/Visit Provider: TAE MD, LEONORA, , , , , [facility], | EXTERNAL LAB | + + + + +---------+ + + | Performing | Address | City/State/Zipcode | Phone Number | | Organization | | | | + +---------+ + + | EXTERNAL LAB | | | | + +---------+ + + documented in this encounter Visit Diagnoses Not on filedocumented in this encounter"
--- OUTSIDE RECORDS SUMMARY | ~2020-09-15 | XMS | Encounter Summary ---
Demographics + + + | Address | [address] | | | [place] [address] | + + + | Home Phone | | + + + | Preferred Language | Unknown | + + + | Marital Status | | + + + | Pentecostal Affiliation | 1077 | + + + | Race | White | + + + | Ethnic Group | Not or | + + + Author + + + | Author | [facility] | | | and [place] | + + + | Organization | [facility] | | | [...] Team Providers + +------+ + | Care Treatment Specialist Name | Role | Phone | + +------+ + | Mehrdad Bergman | PCP | | + +------+ + Encounter Details +--------+ + + + + | Date | Type | Department | Care Team | Description | +--------+ + + + + | 02/16/ | Imaging | [facility] | Provider, | | | 2019 | Exam | [facility] | MD Jonathan [address] | | | | | IM[address] | [address] | | | | | [address] [place] | [place] [address] | | | | | [place] [address] | | | | | | [phone] | | | +--------+ + + + [...] | | | | | | [place] [address] | | | | | | [phone] | | | | | | | [...] [place] | | | | | | [address] | | | | | | | | +--------+ + + + + | 10/30/ | Virtual | Nephrology | Farrukh Acuna MD | | | 2019 | Office | | [address] | | | | Visit | | [address] [place] | | | | | | [address] | | | | | | | | +--------+ + + + + documented as of this encounter Procedures + +--------+ + + + | Procedure Name | Priori | Date/Time | Associated Diagnosis | Comments | | | ty | | | | + +--------+ + + + | XR CHEST AP PORTABLE | Routin | 03/03/2019 | | Results for this | | | e | 12:00 AM | | procedure are in the | | | | PDT | | results section. | + +--------+ + + + documented in this encounter Results XR Chest AP Portable (03/03/2019 12:00 AM PDT) + + | Specimen [...]
--- OUTSIDE RECORDS SUMMARY | ~2020-09-15 | XMS | Encounter Summary ---
Demographics + + + | Address | [address] | | | [place] [address] | + + + | Home Phone | | + + + | Preferred Language | Unknown | + + + | Marital Status | | + + + | Tenriism Affiliation | 1077 | + + + | Race | White | + + + | Ethnic Group | Not or | + + + Author + + + | Author | [facility] | | | and [place] | + + + | Organization | [facility] | | [...] Team Providers + +------+ + | Care Matzo Forming Machine Operator Name | Role | Phone | [...] | | | [address] [place] | [place] [address] | | | | | [place] [address] | | | | | | [phone] | | | +--------+ + + + [...] | | | | | | [place] [address] | | | | | | [phone] | | | | | | | [...] [place] | | | | | | [id number] | | | | | | | | +--------+ + + + + | 10/30/ | Virtual | Nephrology | Farrukh Acuna MD | | | 2019 | Office | | [address] | | | | Visit | | [address] [place], [place] | | | | | | [address] | | | | | | | | +--------+ + + + + documented as of this encounter Procedures + +--------+ + + + | Procedure Name | Priori | Date/Time | Associated Diagnosis | Comments | | | ty | | | | + +--------+ + + + | XR CHEST 2 VIEWS | Routin | 01/23/2016 | | Results for this | | | e | 12:00 AM | | procedure are in the | | | | PST | | results section. | + +--------+ + + + documented in this encounter Results XR Chest 2 Vws (01/23/2016 12:00 AM PST) + + | Specimen | + + [...]
--- OUTSIDE RECORDS SUMMARY | ~2020-09-15 | XMS | Encounter Summary ---
Demographics + + + | Address | [address] | | | [place] [address] | + + + | Home Phone | | + + + | Preferred Language | Unknown | + + + | Marital Status | | + + + | Baptist Affiliation | 1077 | + + + [...] Providers + +------+ + | Care Director Wholesale Name | Role | Phone | + +------+ + | Rahul Silva MD | PCP | | + +------+ + Encounter Details +--------+ + + + + | Date | Type | Department | Care Team | Description | +--------+ + + + + | 11/08/ | Orders Only | [facility] | Olman Toussaint MD | | | 2015 | | [address] | [address] | | | | | [place], [place] | [place], [place] | | | | | [address] | [address] | | | | | [phone] | | | | | | | [...] | | | | | | [place] [address] | | | | | | [phone] | | | | | | | [...] [place] | | | | | | [address] | | | | | | | | +--------+ + + + + | 10/30/ | Virtual | Nephrology | Farrukh Acuna MD | | | 2019 | Office | | [address] | | | | Visit | | [address] [place] | | | | | | [address] | | | | | | | | +--------+ + + + + documented as of this encounter Procedures + +--------+ + + + | Procedure Name | Priori | Date/Time | Associated Diagnosis | Comments | | | ty | | | | + +--------+ + + + | COMPREHENSIVE | Routin | 11/08/2016 | | Results for this | | METABOLIC PANEL | e | 4:37 AM | | procedure are in the | | | | PST | | results section. | + +--------+ + + + documented in this encounter Results Comprehensive Metabolic Panel (11/08/2016 4:37 AM PST) + + + + + + | Component | Value | Ref Range | Performed | Pathologist | | | | | At | Signature | + + + + + + | Na | 144 | 135 - 145 | EXTERNAL | | | | | mmol/L | LAB | | + + + + + + | K | 3.2 (L) | 3.5 - 4.9 | EXTERNAL | | | | | mmol/L | LAB | | + + + + + + | Cl | 110 (H) | 99 - 109 mmol/L | EXTERNAL | | | | | | LAB | | + + + + + + | CO2 | 22 (L) | 23 - 32 mmol/L | EXTERNAL | | | | | | LAB | | + + + + + + | Anion Gap | 15 | 5 - 20 mmol/L | EXTERNAL | | | | | | LAB | | + + + + + + | Glucose, | 153 (H) | 65 - 99 mg/dL | EXTERNAL | | | Fasting | | | LAB | | + + + + + + | BUN | 54 (H) | 8 - 25 mg/dL | EXTERNAL | | | | | | LAB | | + + + + + + | Creatinine | 5.4 (H) | 0.70 - 1.30 | EXTERNAL | | | | | mg/dL | LAB | | + + + + + + | BUN/Creatin | 10 | | EXTERNAL | | | ine Ratio | | | LAB | | + + + + + + | Calcium | 6.7 (L) | 8.5 - 10.5 | EXTERNAL | | | | | mg/dL | LAB | | + + + + + + | Protein, | 5.3 (L) | 6.3 - 8.2 g/dL | EXTERNAL | | | Total | | | LAB | | + + + + + + | Albumin | 2.0 (L) | 3.3 - 4.8 g/dL | EXTERNAL | | | | | | LAB | | + + + + + + | Globulin | 3.3 | 1.3 - 4.9 g/dL | EXTERNAL | | | | | | LAB | | + + + + + + | A/G Ratio | 0.6 (L) | 1.0 - 2.4 | EXTERNAL | | | | | | LAB | | + + + + + + | Bilirubin | 0.3 | 0.1 - 1.5 mg/dL | EXTERNAL | | | Total | | | LAB | | + + + + + + | ALP, | 89 | 35 - 115 U/L | EXTERNAL | | | External | | | LAB | | + + + + + + | AST | 14 | 10 - 45 U/L | EXTERNAL | | | | | | LAB | | + + + + + + | ALT | 25 | 10 - 65 U/L | EXTERNAL | | | | | | LAB | | + + + + + + | Estimated | 11 (L)Comment: GFR <60: | mL/min/1.73_m2 | EXTERNAL [...] + + + | Attending/Visit Provider: , TAE WATKINS, LEONORA, , , , , [facility], | [...]
--- OUTSIDE RECORDS SUMMARY | ~2020-09-15 | XMS | Encounter Summary ---
Demographics + + + | Address | [address] | | | [place] [address] | + + + | Home Phone | | + + + | Preferred Language | Unknown | + + + | Marital Status | | + + + | Amish Affiliation | 1077 | + + + | Race | White | + + + | Ethnic Group | Not or | + + + Author + + + | Author | [facility] | | | and [place] | + + + | Organization | [facility] | | | [...] Team Providers + +------+ + | Care Automation And Controls Supervisor Name | Role | Phone | + +------+ + | Rahul Silva MD | PCP | | + +------+ + Encounter Details +--------+ + + + + | Date | Type | Department | Care Team | Description | +--------+ + + + + | 02/12/ | Orders Only | [facility] | Farrukh Acuna MD | | | 2018 | | NEPHROLOGY [place] | [address] | | | | | [address] | [address] [place], [place] | | | | | [address] [place], [place] | [address] | | | | | [address] | | | | | | [phone] | | | +--------+ + + + [...] | | | | | | [place] [address] | | | | | | [phone] | | | | | | | [...] [place] | | | | | | [address] | | | | | | | | +--------+ + + + + | 10/30/ | Virtual | Nephrology | Farrukh Acuna MD | | | 2019 | Office | | [address] | | | | Visit | | [address] [place] | | | | | | [address] | | | | | | | | +--------+ + + + + documented as of this encounter Procedures + +--------+ + + + | Procedure Name | Priori | Date/Time | Associated Diagnosis | Comments | | | ty | | | | + +--------+ + + + | EXTERNAL LAB: CBC | Routin | 02/12/2018 | | Results for this | | | e | 12:50 PM | | procedure are in the | | | | PDT | | results section. | + +--------+ + + + | PROTEIN/CREATININE | Routin | 02/12/2018 | | Results for this | | RATIO, URINE | e | 12:50 PM | | procedure are in the | | | | PDT | | results section. | + +--------+ + + + | URIC ACID | Routin | 02/12/2018 | | Results for this | | | e | 12:50 PM | | procedure are in the | | | | PDT | | results section. | + +--------+ + + + | PARATHYROID HORMONE, | Routin | 02/12/2018 | | Results for this | | INTACT | e | 12:50 PM | | procedure are in the | | | | PDT | | results section. | + +--------+ + + + | MAGNESIUM | Routin | 02/12/2018 | | Results for this | | | e | 12:50 PM | | procedure are in the | | | | PDT | | results section. | + +--------+ + + + | FERRITIN | Routin | 02/12/2018 | | Results for this | | | e | 12:50 PM | | procedure are in the | | | | PDT | | results section. | + +--------+ + + + | RENAL FUNCTION PANEL | Routin | 02/12/2018 | | Results for this | | | e | 12:50 PM | | procedure are in the | | | | PDT | | results section. | + +--------+ + + + documented in this encounter Results Protein/Creatinine Ratio, Urine (02/12/2018 12:50 PM PDT) + + + + + + | Component | Value | Ref Range | Performed | Pathologist | | | | | At | Signature | + + + + + + | Protein/Cre | 2146.3 (A) | 0 - 150 | EXTERNAL [...] + +---------+ + + External Lab: CBC (02/12/2018 12:50 PM PDT) + + + + + + | Component | Value | Ref Range | Performed | Pathologist | | | | | At | Signature | + + + + + + | WBC | 8.7 | 4.5 - 11.0 10 | EXTERNAL | | | | | | LAB | | + + + + + + | Non- | 3.5 (A) | 4.3 - 5.7 10 | EXTERNAL | | | Red Blood | | | LAB | | | Cells | | | | | | Counted | | | | | + + + + + + | Hemoglobin | 10.1 (A) | 13.5 - 18.0 | EXTERNAL | | | | | g/dL | LAB | | + + + + + + | Hematocrit, | 30.5 (A) | 41 - 50 % | EXTERNAL | | | POC | | | LAB | | + + + + + + | MCV | 87.1 | 81 - 99 fL | EXTERNAL | | | | | | LAB | | + + + + + + | MCH | 29 | 27 - 33 pg | EXTERNAL | | | | | | LAB | | + + + + + + | MCHC | 33 | 30 - 36 g/dL | EXTERNAL | | | | | | LAB | | + + + + + + | Platelet | 246 | 140 - 440 K/ L | EXTERNAL | | | Count | | | LAB | | | Plasma | | | | | + + + + + + | RDW-CV | 16 (A) | 10.5 - 15.0 % | EXTERNAL [...] | + +---------+ + + Uric Acid (02/12/2018 12:50 PM PDT) + +-------+ + + + | Component | Value | Ref Range | Performed | Pathologist | | | | | At | Signature | + +-------+ + + + | Uric Acid | 6.6 | 4.4 - 7.6 | EXTERNAL | [...] + +---------+ + + Parathyroid Hormone, Intact (02/12/2018 12:50 PM PDT) + + + + + + | Component | Value | Ref Range | Performed | Pathologist | | | | | At | Signature | + + + + + + | PTH INTACT | 219.1 (A) | 15 - 65 pg/mL | [...] | | + +---------+ + + Magnesium (02/12/2018 12:50 PM PDT) + +---------+ + + + | Component | Value | Ref Range | Performed | Pathologist | | | | | At | Signature | + +---------+ + + + | Magnesium | 1.5 (A) | 1.7 - 2.5 mg/dL | [...] | | + +---------+ + + Ferritin (02/12/2018 12:50 PM PDT) + +-------+ + + + | Component | Value | Ref Range | Performed | Pathologist | | | | | At | Signature | + +-------+ + + + | Ferritin, | 79.56 | 30 - 400 ng/mL | EXTERNAL [...] + +---------+ + + Renal Function Panel (02/12/2018 12:50 PM PDT) + + + + + + | Component | Value | Ref Range | Performed | Pathologist | | | | | At | Signature | + + + + + + | Glucose, | 104 (A) | 70 - 100 mg/dL | EXTERNAL | | | Fasting | | | LAB | | + + + + + + | BUN | 33 (A) | 6 - 23 mg/dL | EXTERNAL | | | | | | LAB | | + + + + + + | Creatinine | 2.12 (A) | 0.7 - 1.18 | EXTERNAL | | | [...] + + | Na | 139 | 132 - 143 | EXTERNAL | | | | | mmol/L | LAB | | + + + + + + | K | 4.0 | 3.6 - 5.1 | EXTERNAL | | | | | mmol/L | LAB | | + + + + + + | Cl | 105 | 95 - 112 mmol/L | EXTERNAL | | | | | | LAB | | + + + + + + | CO2 | 23 | 19 - 31 mmol/L | EXTERNAL | | | | | | LAB | | + + + + + + | Anion Gap | 15 | 7 - 21 mmol/L | EXTERNAL | | | | | | LAB | | + + + + + + | eGFR, | | | EXTERNAL | | | non- | | | LAB | | | Spanish | | | | | + + + + + + | Phosphorus, | 4.9 | 2.5 - 5.0 | EXTERNAL | | | Inorganic | | | LAB | | + + + + + + | BUN/Creatin | 15.6 | 6.0 - 28.6 | EXTERNAL | | | ine Ratio | | | LAB | | + + + + + + | Calcium | 7.6 (A) | 8.4 - 10.2 | EXTERNAL | | | | | mg/dL | LAB | | + + + + + + | Estimated | 30 (A) | 60 mg/dL | EXTERNAL | | | GFR [...]
--- OUTSIDE RECORDS SUMMARY | ~2020-09-15 | XMS | Encounter Summary ---
Demographics + + + | Address | [address] | | | [place] [address] | + + + | Home Phone | | + + + | Preferred Language | Unknown | + + + | Marital Status | | + + + | Yarsani Affiliation | 1077 | + + + | Race | White | + + + | Ethnic Group | Not or | + + + Author + + + | Author | [facility] | | | and [place] | + + + | Organization | [facility] | | | [...] Team Providers + +------+ + | Care Non Licensed Operator Name | Role | Phone | + +------+ + | Mehrdad Bergman | PCP | | + +------+ + Reason for Visit + +--------+ + | Reason | Onset | Comments | | | Date | | + +--------+ + | Appointment | 09/12/ | | | | 2020 | | + +--------+ + Encounter Details +--------+ + + + + | Date | Type | Department | Care Team | Description | +--------+ + + + + | 09/12/ | Telephone | [facility] | Lakesha Sheridan | Appointment | | 2020 | | [facility]SE [facility] THROAT [address] | M RN | | | | | [address] | | | | | | [place] | | | | | | [address] | | | | | | [phone] | | | +--------+ + + + [...] + + documented as of this encounter Functional Status + + + + | Functional Status | Response | Date of Assessment | + + + + | Are you deaf or do you have serious | No | 08/24/2020 | | difficulty hearing? | | | + + + + | Are you blind or do you have serious | No | 08/24/2020 | | difficulty seeing, even when wearing | | | | glasses? | | | + + + + | Do you have serious difficulty walking or | No | 08/24/2020 | | climbing stairs? (5 years old or older) | | | + + + + | Do you have difficulty dressing or bathing? | Yes | 08/24/2020 | | (5 years old or older) | | | + + + + | Because of a physical, mental, or emotional | Yes | 08/24/2020 | | condition, do you have difficulty doing | | | | errands alone such as visiting a doctor's | | | | office or shopping? [15 years old or | | | | older)] | | | + + + + + + + + | Cognitive Status | Response | Date of Assessment | + + + + | Because of a physical, mental, or emotional | No | 08/24/2020 | | condition, do you have serious difficulty | | | | concentrating, remembering, or making | | | | decisions? (5 years old or older) | | | + + + + documented as of this encounter Miscellaneous Notes Telephone Encounter - Lakesha Sheridan RN - 09/12/2020 11:15 AM PDTCalled spoke to Ever for[place],she states her father is in [facility] and not expected to survive. elephone Encounter - Lakesha Sheridan RN - 09/12/2020 11:15 AM PDT----- Message from Pam Barba DO sent at 09/02/2020 9:22 AM PDT ----- Regarding: Appointment Please schedule an appointment with me in the next 2 weeks. Pam ----- Message ----- From: Skyler Jama In [facility] Sent: 09/01/2020 1:53 PM PDT To: Pam Barba DO documented in this encounter Plan of Treatment +--------+ + + + + | Date | Type | Specialty | Care Team | Description | +--------+ + + + + | 09/19/ | Office | Cardiology | [place], | | 2019 | Visit | | [address] | | | | | | [address], | | | | | | [place] [address] | | | | | | [phone] | | | | | | | | +--------+ + + + + | 09/19/ | Clinical | Cardiology | | | 2019 | Support | | | | +--------+ + + + + | 10/03/ | Office | Cardiology | Ron Orosco MD | | | 2019 | Visit | | [address] | | | | | | [place] | | | | | | [address] | | | | | | | [...]
--- OUTSIDE RECORDS SUMMARY | ~2020-09-15 | XMS | Encounter Summary ---
Demographics + + + | Address | [address] | | | [place] [address] | + + + | Home Phone | | + + + | Preferred Language | Unknown | + + + | Marital Status | | + + + | Jehovah'S Witness Affiliation | 1077 | + + + | Race | White | + + + | Ethnic Group | Not or | + + + Author + + + | Author | [facility] | | | and [place] | + + + | Organization | [facility] | | | and [...] Team Providers + +------+ + | Care Ecological Modeler Name | Role | Phone | + +------+ + | Rahul Silva MD | PCP | | + +------+ + Encounter Details +--------+ + + + + | Date | Type | Department | Care Team | Description | +--------+ + + + + | 11/11/ | Orders Only | [facility] | Olman Toussaint MD | | | 2015 | | [address] | [address] | | | | | [place], [place] | [place], [place] | | | | | [address] | [address] | | | | | [phone] | | | | | | | [...] | | | | | | [place] [address] | | | | | | [phone] | | | | | | | [...] [place] | | | | | | [address] | | | | | | | | +--------+ + + + + | 10/30/ | Virtual | Nephrology | Farrukh Acuna MD | | | 2019 | Office | | [address] | | | | Visit | | [address] [place] | | | | | | [address] | | | | | | | | +--------+ + + + + documented as of this encounter Procedures + +--------+ + + + | Procedure Name | Priori | Date/Time | Associated Diagnosis | Comments | | | ty | | | | + +--------+ + + + | CK TOTAL | Routin | 11/11/2016 | | Results for this | | | e | 4:26 AM | | procedure are in the | | | | PST | | results section. | + +--------+ + + + documented in this encounter Results CK Total (11/11/2016 4:26 AM PST) + +-------+ + + + | Component | Value | Ref Range | Performed | Pathologist | | | | | At | Signature | + +-------+ + + + | CK, Total | 82 | 55 - 400 U/L | EXTERNAL | | | | [...]
--- OUTSIDE RECORDS SUMMARY | ~2020-09-15 | XMS | Encounter Summary ---
Demographics + + + | Address | [address] | | | [place] [address] | + + + | Home Phone | | + + + | Preferred Language | Unknown | + + + | Marital Status | | + + + | Restorationist Affiliation | 1077 | + + + | Race | White | + + + | Ethnic Group | Not or | + + + Author + + + | Author | [facility] | | | and [place] | + + + | Organization | [facility] | | [...] Team Providers + +------+ + | Care Welfare Officer Name | Role | Phone | [address] | | | | | [place], [place] | [place], [place] | | | | | [address] | [address] | | | | | [phone] | | | | | | | [...] | | | | | | [place] [address] | | | | | | [phone] | | | | | | | [...] [place] | | | | | | [address] | | | | | | | | +--------+ + + + + | 10/30/ | Virtual | Nephrology | Farrukh Acuna MD | | | 2019 | Office | | [address] | | | | Visit | | [address] [place] | | | | | | [address] | | | | | | | | +--------+ + + + + documented as of this encounter Procedures + +--------+ + + + | Procedure Name | Priori | Date/Time | Associated Diagnosis | Comments | | | ty | | | | + +--------+ + + + | EXTERNAL LAB: DUNIA | Routin | 11/09/2016 | | Results [...] + + + + | Non- | 3.06 (L) | 4.20 - 5.70 | EXTERNAL | | | Red Blood | | 10*6/uL | LAB | | | Cells | | | | | | Counted | | | | | + + + + + + | Hemoglobin | 9.3 (L) | 13.2 - 17.0 [...]
--- OUTSIDE RECORDS SUMMARY | ~2020-09-15 | XMS | Encounter Summary ---
Demographics + + + | Address | [address] | | | [place] [address] | + + + | Home Phone | | + + + | Preferred Language | Unknown | + + + | Marital Status | | + + + | Moravian Affiliation | 1077 | + + + | Race | White | + + + | Ethnic Group | Not or | + + + Author + + + | Author | [facility] | | | and [place] | + + + | Organization | [facility] | | [...] Team Providers + +------+ + | Care Laundry Worker Name | Role | Phone | [address] | | | | | [place], [place] | [place], [place] | | | | | [address] | [address] | | | | | [phone] | | | | | | | [...] | | | | | | [place] [address] | | | | | | [phone] | | | | | | | [...] [place] | | | | | | [address] | | | | | | | | +--------+ + + + + | 10/30/ | Virtual | Nephrology | Farrukh Acuna MD | | | 2019 | Office | | [address] | | | | Visit | | [address] [place] | | | | | | [address] | | | | | | | | +--------+ + + + + documented as of this encounter Procedures + +--------+ + + + | Procedure Name | Priori | Date/Time | Associated Diagnosis | Comments | | | ty | | | | + +--------+ + + + | C-REACTIVE PROTEIN | Routin | 11/08/2016 | | Results for this | | | e | 4:37 AM | | procedure are in the | | | | PST | | results section. | + +--------+ + + + documented in this encounter Results C-Reactive Protein (11/08/2016 4:37 AM PST) + +---------+ + + + | Component | Value | Ref Range | Performed | Pathologist | | | | | At | Signature | + +---------+ + + + | CRP | 2.8 (H) | mg/dL | EXTERNAL | | | [...]
--- OUTSIDE RECORDS SUMMARY | ~2020-09-15 | XMS | Encounter Summary ---
Demographics + + + | Address | [address] | | | [place] [address] | + + + | Home Phone [...] Team Providers + +------+ + | Care Strategies Analyst Name | Role | Phone | [...] | | | | | | | ([facility]) | | | | | | | [...] + + | 09/10/ | Surgery | [facility] | Brian Orosco MD | INSERTION AV FISTULA | | 2019 | [facility] | [address] | (Right BBF) | | | | OPERATING ROOM [address] | [place], [place] | | | | | [address] | [address] | | | | | [place], [place] | [phone] | | | | | [address] | | | | | | [phone] | | | +--------+---------+ + + + [...] + + + | Blood Pressure | 168/70 | 09/10/2019 12:15 PM | | | | | PDT | | + + + + + | Pulse | 60 | 09/10/2019 12:15 PM | | | | | PDT | | + + + + + | Temperature | 36.6 C (97.9 F) | 09/10/2019 12:15 PM | | | | | PDT | | + + + + + | Respiratory Rate | 19 | 09/10/2019 12:15 PM | | | | | PDT | | + + + + + | Oxygen Saturation | 94% | 09/10/2019 12:15 PM | | | [...] shunt, please contact your ph ysician at [phone]. Discharge instructions for Diagnostic Imaging sedation patients [...] in a reclining position for the ri de home, or have an adult in the [...] . For any severe symptoms, please call [phone] or report to your nearest Emergency Department. Acetaminophen; Hydrocodone tablets or capsules Brand Names: Anexsia, Lorcet, Lorcet HD, Lorcet Plus, Lortab, Hial[place], Verdrocet, Vicodin, Vi codin ES, Vicodin HP, [...] information carefully each time. Talk to your reserve operator regarding the use of this medicine in children. Special care may be needed. What side effects may I notice from receiving this medicine? Side effects that you should report to your doctor or health director critical care as soon as p ossible: allergic reactions [...] attention (report to your doctor or health director critical care if they continue or are bothersome): constipation [...] to an official disposal site. Contact the [facility] at [phone] or your [facility] to find a site. If you [...] this medicine? Tell your doctor or health director critical care if your pain does not go away, [...] not take more medicine than directed. Joel l emergency for help if you have problems [...] not stand or sit up quickly, tisha cially if you are an older patient. This [...] cuts, scrapes, or blows. Date Last Reviewed: 12/01/201619993729-1145 [employer]. [address] [place] [address]. All righ ts reserved. This information is [...] | | | | albuterol-ipratropiu | nebulization 3 times | | | | | | m (DUONEB) 2.5-0.5 | daily as needed | | | | | | mg/3 mL SOLN | (Dyspnea) . | | | | | + + [...] | | | | | | | (HCC), Secondary | | | | | | [...] + + | doxepin (SINEQUAN) | Take 50 mg by mouth | | 0 | 05/31/20 | | | 50 mg capsule | nightly . | | | 19 | | + [...] | | | (NOVOLOG PENFILL) | skin 5 times daily | | | | | | 100 units/mL | Per sliding scale; | | | | | | injection cartridge | Max daily dose: 50 | | | | | | | units. | | | | | + + + +---------+ + + | Magnesium 65 MG | Take 1 tablet by | | 0 | | | | TABS | mouth Daily. | | | | | + + + +---------+ + + | ondansetron | Take 8 mg by mouth | | 0 | // | | | (ZOFRAN ODT) 8 mg | EVERY 6 TO 8 HOURS | | | 19 | | | disintegrating | NEEDED for Nausea | | | | | | tablet | . | | | | | + + [...] nebulization every 6 | | | | 0 | | solution | hours as needed [...] | nebulization 4 | | | | 0 | | mcg/2.5 mL nebulizer | (four) times daily. | | | | | | solution | | | | | | + + + +---------+ + + | LANTUS SOLOSTAR | Inject 25 Units | | 0 | 05/19/20 | | | 100 UNIT/ML | under the skin | | | 19 | 0 | | injection (pen) | nightly. | | | | | + + + +---------+ + + | MERCEDEZZESS 145 MCG | | | 1 | 05/20/20 | | | capsule | | | | 19 | 0 | + + + +---------+ + + | lisinopril | | | 1 | 06/04/20 | | | (PRINIVIL, ZESTRIL) | | | | 19 | 0 | | 10 mg tablet | | [...] 4 hours | | | 19 | 0 | | inhaler | if needed for | | | | | | | shortness of breath | | | | | + + + +---------+ + + documented as of this encounter Progress Leana Mireles RN - 09/10/2019 4:05 PM PDTDischarge instructions (per AVS) explained and discussed with patient and family (patient's daughter-sona). Discussed precautions post -fistula creation, precautions post-anesthesia, signs and symptoms of surgical site incision , heavy bleeding, incision care, dressing care, and signs and symptoms of blood clots and bl ood clots prevention. Prescription for Hialeah given and side effects were explained. Patient states that he also takes oxycodone at home; patient and his family were educated about taki ng oxycodone or Hialeah only and not both. OTC Tylenol intake precautions also discussed. Arabella ent and his family verbalized understanding and agreeable. Opportunity to ask questions give n, all questions were answered. Leana Pimentel RN documented in this encounter H&P Brian Malin MD - 09/10/2019 12:[address] [facility] Service: Vascular Surgery Pre-Operative History & Physical Interval Update There have been no significant clinical changes since the completion of the above H&P. Toda y's physical assessment showed Normal appearance, alert and oriented x 3 and respiratory eff ort normal Brian Orosco MD 09/10/2019 Elizabet, Brian Blount MD - 9 11:00 AM PDT Subjective Subjective Mr. Andujar is a pleasant 79 y.o. male with PMH significant for COPD, DM, HTN, HLD, anemia, LE embolism, LLE amputation, and stroke who is referred to nh for arteriovenous fistula plac ement. The patient's [...] CV: No peripheral edema, rate regular SKIN: [place], warm, dry without rash/lesion MS: ROM not [...] right upper extremity fistula creation with the darius mott. We have discussed benefits and risks of this procedure, including infection, bleeding , need for additional surgeries, arterial steal syndrome. Patient is understanding and agree able to right upper extremity fistula creation, and has signed consent for surgery. Patient was instructed not to eat or drink fluids after 11:59 PM on the day before surgery. The arabella ent is a cigarette smoker. I advised patient to quit, and offered support. All questions and concerns addressed. Patient will follow up after surgery. Patient understands and is agreea ble. Attending Note: Documentation assistance provided by Justyn Yanes ([place]). Information dex rded by the usmanibfouzia has been reviewed and validated by me. I agree with its contents. Signed by: Eden Painter 08/26/19, 10:49 Brian Orosco MD documented in this encount er Miscellaneous Notes Op Note - Brian Orosco MD - 09/10/2019 2:00 PM PDT [facility] Service: Vascular Surgery Operative Note Pre-operative Diagnosis: CKD and need for pipe straightener dialysis access Post-operative Diagnosis: same Procedure(s): Right brachiocephalic fistula creation Surgeon: Brian Orosco MD Dental Appliance Fixer(s): None Anesthesia: Monitor Anesthesia care and Local anesthesia Estimated Blood Loss: less than 50 Other: IV Fluids: 400 ml Indications: See pre-operative history and physical Findings: Cephalic vein of good size but highly fibrotic. Brachial artery without signifi cant disease. After fistula creation, strong thrill in fistula. Strong radial signals at e nd of case. Complications: None apparent Description of Procedure: Patient was properly identified and brought to the operating lety m where patient was placed supine on the operating table and patient underwent Monitor Anest hesia care and Local anesthesia. Patient's right arm was then prepped and draped in the usua l sterile fashion. Local anesthetic was then given to the antecubital fossa and a transverse incision was then made. First the cephalic vein was identified and branches of the cephalic vein were ligated with 3-0 silk sutures and divided. Next, the brachial artery was also luly ntified and dissected. Patient was then given 3000 units of IV heparin. After 3 minutes an e nd-to-side anastomosis was created with the cephalic vein onto the brachial artery using 6-0 Prolene sutures in a running fashion. After completion of the anastomosis, there was a stro ng thrill in the fistula. The patient had a strong signals of the radial artery at the end o f the case. The wound was then irrigated and hemostasis was then assured. The deep dermal t issue was then closed with 3-0 Vicryl and the skin was then closed with 4-0 Monocryl in a rodriguez bcuticular fashion. Mastisol and Steri-Strip closures were then placed and a sterile dressin g was then applied. At the end of the case, sponge, needle, and instrument counts were corre ct x2. There were no apparent complications. Condition: stable Brian Orosco MD 09/10/2019 14:00 documented in this encount er Plan of Treatment +--------+ + + + + | Date | Type | Specialty | Care Team | Description | +--------+ + + + + | 09/19/ | Office | Cardiology | OdonnellMarch, | | | 2019 | Visit | | PRODUCTION OR PLANT ENGINEER [address] | | | | | | [address] [place], | | | | | | [place] [address] | | | | | | [phone] | | | | | | | [...] [place] | | | | | | [address] | | | | | | | | +--------+ + + + + | 10/30/ | Virtual | Nephrology | Farrukh Acuna MD | | | 2019 | Office | | [address] | | | | Visit | | [address] [place] | | | | | | [address] | | | | | | | [...] | | | POC | performed at [facility];[address] | | LABORATORY | | | | [address];[place], [place] | | | | | | [address] | | | | + + + + + + + + | Specimen | + + | | + + + + + + + | Performing | Address | City/State/Zipcode | Phone Number | | Organization | | | | + + + + + | [facility] | [address] | [place] [address] | [phone] | + + + + + POC Glucose (09/10/2019 12:13 PM PDT) + + + + + + | Component | Value | Ref Range | Performed | Pathologist | | | | | At | Signature | + + + + + + | Glucose, | 150 (H)Comment: Testing | 65 - 99 mg/dL | [facility] | | | POC | performed at [facility];[address] | | LABORATORY | | | | [address];[place] | | | | | | [address] | | | | + + + + + + + + | Specimen | + + | | + + + + + + + | Performing | Address | City/State/Zipcode | Phone Number | | Organization | | | | + + + + + | [facility] | [address] | [place] [address] | [phone] | + + + + + documented in this encounter Visit Diagnoses + + | Diagnosis | + + | CKD (chronic kidney disease) stage 5, GFR less than 15 ml/min ([facility]) Chronic kidney | | disease, Stage V | + + documented in this encounter Admitting Diagnoses + + | Diagnosis | + + | CKD (chronic kidney disease) stage 5, GFR less than 15 ml/min ([facility]) Chronic kidney | | disease, Stage V | + + documented in this encounter Administered Medications + +--------+ +---------+------+------+ | Medication Order | MAR | Action | Dose | Rate | Site | | | Action | Date | | | | + +--------+ +---------+------+------+ | albuterol 1.25 mg/3 mL | Given | 09/10/20 | 1.25 mg | | | | [...] or escalating | | | pain, Starting Fri09/10/19 at | | | 1401, For 4 doses, (2 doses | | | maximum for opioid naive, 4 doses | | | maximum for opioid tolerant) | | | First dose must be lowest dose. | | | Use Pasero Sedation Scale. | | | [Opioid tolerant = One week or | | | longer, iedeon-sni-bxlsb use of | | | at least [...] Intravenous, PRN, Shivering, | | | Starting Fri09/10/19 at 1401, | | | For 2 [...]
--- OUTSIDE RECORDS SUMMARY | ~2020-09-15 | XMS | Encounter Summary ---
Demographics + + + | Address | [address] | | | [place] [address] | + + + | Home Phone [...] + + + | Author | [facility] | + + + | Organization | [facility] | + + + | Address | Unknown | + + + | Phone | Unavailable | + + + Support + + + + + | Name | Relationship | Address | Phone | + + + + + | Darci Zavala | VALERIE | [place] | | | | | [address] | | + + + + + Care Team Providers + +------+ + | Care Video Recorder Mechanic Name | Role | Phone | + +------+ + PCP | Unavailable | + +------+ + Encounter Details +--------+ + + + + | Date | Type | Department | Care Team | Description | +--------+ + + + + | 01/31/ | Transcribed | [facility] at | Dictation, Other | Transcribed | | 1997 | | [address] [address] | | | | | | [address] | | | | | | [place] | | | | | | [address] | | | | | | [place], [place] | | | | | | [address] | | | | | | [phone] | | | +--------+ + + + [...] as of this encounter Progress Notes Interface, Real Time Operator In - 12/28/2006 5:10 AM PST [facility] [place] [address] [place], [place] [address] or January 31, 1998 GRIFFIN SMILEY MD [address] [place] [address] [place] [address] RE:PORFIRIO ZAVALA MR#:[id number] Smiley: As we discussed in our telephone conversation today, I feel that Mr. Porfirio Zavala would be best treated with Ultram (tramadol) for his pain. Given his previous history of prescription drug abuse/misuse and the devastating consequences of the overdosages he has experienced, this drug would the safest choice for an oral analgesic. As you know, Ultram is not without a risk of addiction/habituation, but its effect on the opiate receptors is so gradual in onset and mild in amount, that recreational use is unlikely. I was surprised to hear in our conversation that the [facility] does not cover Ultram in their formulary, since this is a very useful drug in situations exactly like Mr. Adamsons. For those patients in whom stronger opiate analgesic is either not necessary or inappropriate, tramadol/Ultram offers a very good alternative analgesic drug. I will contact Dr. Willis of the Department of Orthopaedic Surgery and see if he can assist me in expediting Mr. Zavala's care, as well I will speak with Dr. Carlson and see if I can ascertain the purpose of repeat magnetic resonance imaging. Thank you again for your feedback on Mr. Heaton condition and I look forward to hearing from you again in the future. Sincerely, Nelson Melara M.D. Log Brander, Anesthesiology [facility] MANDY/geovanni documented in this encounter Plan of Treatment Not on filedocumented as of this encounter Visit Diagnoses Not on filedocumented in this encounter"
--- OUTSIDE RECORDS SUMMARY | ~2020-09-15 | XMS | Encounter Summary ---
Demographics + + + | Address | [address] | | | [place] [address] | + + + | Home Phone | | + + + | Preferred Language | Unknown | + + + | Marital Status | | + + + | Methodist Affiliation | 1077 | + + + | Race | White | + + + | Ethnic Group | Not or | + + + Author + + + | Author | [facility] | | | and [place] | + + + | Organization | [facility] | | | and [...] Team Providers + +------+ + | Care Metal Polisher And Buffer Apprentice Name | Role | Phone | + +------+ + | Mehrdad Bergman | PCP | | + +------+ + Reason for Visit + + + | Reason | Comments | + + + | Medication Refill | | + + + Encounter Details +--------+--------+ + + + | Date | Type | Department | Care Team | Description | +--------+--------+ + + + | 05/04/ | Refill | [facility] | Farrukh Acuna MD | Medication Refill | | 2020 | | NEPHROLOGY [place] | [address] | | | | | [address] | [address] [place], [place] | | | | | [address] | [address] | | | | | [place] | | | | | | [address] | | | | | | [phone] | | | +--------+--------+ + + + [...] [place], | | | | | | [place] [address] | | | | | | [phone] | | | | | | | | +--------+ + + + + | 09/19/ | Clinical | Cardiology | | | | 2019 | Support | | | | +--------+ + + + + | 10/03/ | Office | Cardiology | Ron Orosco MD | | 2019 | Visit | | [address] | | | | | | [place] | | | | | | [address] | | | | | | | | +--------+ + + + + | 10/30/ | Virtual | Nephrology | Farrukh Acuna MD | | | 2019 | Office | | [address] | | | | Visit | | [address] [place], [place] | | | | | | [address] | | | | | | | | +--------+ + + + + documented as of this encounter Visit Diagnoses + + | Diagnosis | + + | Essential hypertension - Primary Unspecified essential hypertension | + + | Anemia of chronic kidney failure, stage 5 (HCC) | + + | Persistent proteinuria Proteinuria | + + | CKD (chronic kidney disease) stage 5, GFR less than 15 ml/min ([facility]) Chronic kidney | | disease, Stage V | + + documented in this encounter Additional Health Concerns + [...]
--- OUTSIDE RECORDS SUMMARY | ~2020-09-15 | XMS | Encounter Summary ---
Demographics + + + | Address | [address] | | | [place] [address] | + + + | Home Phone | | + + + | Preferred Language | Unknown | + + + | Marital Status | | + + + | Rastafari Affiliation | 1077 | + + + [...] Team Providers + +------+ + | Care Filleter Name | Role | Phone | + [...] [address] | | | | | [place], [place] | [place], [place] | | | | | [address] | [address] | | | | | [phone] | [phone] | | | | | | | [...] | | | | | | [place] [address] | | | | | | [phone] | | | | | | | [...] [place] | | | | | | [address] | | | | | | | | +--------+ + + + + | 10/30/ | Virtual | Nephrology | Farrukh Acuna MD | | | 2019 | Office | | [address] | | | | Visit | | [address] [place] | | | | | | [address] | | | | | | | [...]
--- OUTSIDE RECORDS SUMMARY | ~2020-09-15 | XMS | Encounter Summary ---
Demographics + + + | Address | [address] | | | [place] [address] | + + + | Home Phone [...] Providers + +------+ + | Care Wire Puller Name | Role | Phone | + +------+ + | Rahul Silva MD | PCP | | + +------+ + Encounter Details +--------+ + + + + | Date | Type | Department | Care Team | Description | +--------+ + + + + | 01/26/ | Orders Only | [facility] | Conversion | | | 2014 | | [facility] [place] | Transaction, | | | | | [address] | Provider Unknown | | | | | [address] [place], [place] | [phone] | | | | | [address] | | | | | | [phone] | | | +--------+ + + + [...] | | | | | | [place] [address] | | | | | | [phone] | | | | | | | [...] [place] | | | | | | [address] | | | | | | | | +--------+ + + + + | 10/30/ | Virtual | Nephrology | Farrukh Acuna MD | | | 2020 | Office | | [address] | | | | Visit | | [address] [place], [place] | | | | | | [address] | | | | | | | [...] | | | LAB | | | [place] | | | | | + [...]
--- OUTSIDE RECORDS SUMMARY | ~2020-09-15 | XMS | Encounter Summary ---
Demographics + + + | Address | [address] | | | [place] [address] | + + + | Home Phone [...] + + + | Author | [facility] | | | and [place] | + + + | Organization | [facility] | | [...] Team Providers + +------+ + | Care Slicing Machine Operator/Tender Name | Role | Phone | + +------+ + | Rahul Silva MD | PCP | | + +------+ + Encounter Details +--------+ + + + + | Date | Type | Department | Care Team | Description | +--------+ + + + + | 07/06/ | Orders Only | [facility] | Farrukh Acuna MD | | | 2018 | | NEPRHOLOGY [place] | [address] | | | | | [address] | [address] [place], [place] | | | | | [address] [place], [place] | [address] | | | | | [address] | | | | | | [phone] | | | +--------+ + + + [...] | | | | | | [place] [address] | | | | | | [phone] | | | | | | | [...] [place] | | | | | | [address] | | | | | | | | +--------+ + + + + | 10/30/ | Virtual | Nephrology | Farrukh Acuna MD | | | 2019 | Office | | [address] | | | | Visit | | [address] [place] | | | | | | [address] | | | | | | | | +--------+ + + + + documented as of this encounter Procedures + +--------+ + + + | Procedure Name | Priori | Date/Time | Associated Diagnosis | Comments | | | ty | | | | + +--------+ + + + | RENAL FUNCTION PANEL | Routin | 07/06/2018 | | Results for this | | | e | 12:00 AM | | procedure are in the | | | | PDT | | results section. | + +--------+ + + + documented in this encounter Results Renal Function Panel (07/06/2018 12:00 AM PDT) + + + + + + | Component | Value | Ref Range | Performed | Pathologist | | | | | At | Signature | + + + + + + | Glucose, | 107 (A) | 70 - 100 mg/dL | EXTERNAL | | | Fasting | | | LAB | | + + + + + + | BUN | 50 (A) | 6 - 23 mg/dL | EXTERNAL | | | | | | LAB | | + + + + + + | Creatinine | 3.60 (A) | 0.70 - 1.18 | EXTERNAL | | | | | mg/dL | LAB | | + + + + + + | PHOSPHORUS | | mg/dL | EXTERNAL | | | | | | LAB | | + + + + + + | Albumin | | | EXTERNAL | | | | | | LAB | | + + + + + + | Na | 141 | 132 - 143 | EXTERNAL | | | | | mmol/L | LAB | | + + + + + + | K | 4.3 | 3.6 - 5.1 | EXTERNAL | | | | | mmol/L | LAB | | + + + + + + | Cl | 109 | 95 - 112 mmol/L | EXTERNAL | | | | | | LAB | | + + + + + + | CO2 | 15 (A) | 19 - 31 mmol/L | EXTERNAL | | | | | | LAB | | + + + + + + | Anion Gap | 21.3 (A) | 7 - 21 mmol/L | EXTERNAL | | | | | | LAB | | + + + + + + | eGFR, | | | EXTERNAL | | | non- | | | LAB | | | [place] | | | | | + + [...] + + + | Estimated | 16 | mg/dL | EXTERNAL | | | [...]
--- OUTSIDE RECORDS SUMMARY | ~2020-09-15 | XMS | Encounter Summary ---
Demographics + + + | Address | [address] | | | [place] [address] | + + + | Home Phone [...] + + | Author | [facility] | | | and [place] | + + + | Organization | [facility] | | [...] Team Providers + +------+ + | Care Physics Technician Name | Role | Phone | [...] [address] | | | | | [place], [place] | [place], [place] | | | | | [address] | [address] | | | | | [phone] | [phone] | | | | | | | [...] | | | | | | [place] [address] | | | | | | [phone] | | | | | | | [...] [place] | | | | | | [address] | | | | | | | | +--------+ + + + + | 10/30/ | Virtual | Nephrology | Farrukh Acuna MD | | | 2019 | Office | | [address] | | | | Visit | | [address] [place] | | | | | | [address] | | | | | | | [...]
--- OUTSIDE RECORDS SUMMARY | ~2020-09-15 | XMS | Encounter Summary ---
Demographics + + + | Address | [address] | | | [place] [address] | + + + | Home Phone [...] Team Providers + +------+ + | Care Genetic Counsellor Name | Role | Phone | + [...] [place] | (cancellation) | | | | [place], | [place], [place] | | | | | [place] [address] | [address] | | | | | [phone] | | | +--------+ + + + [...] with Dr. Magana at 1pm for a SUPERVISOR IN CIRCUIT TESTING consult due to not feeling well. Appointment [...] | | | | | | [place] [address] | | | | | | [phone] | | | | | | | [...] [place] | | | | | | [address] | | | | | | | [...]
--- OUTSIDE RECORDS SUMMARY | ~2020-09-15 | XMS | Encounter Summary ---
Demographics + + + | Address | [address] | | | [place] [address] | + + + | Home Phone [...] Team Providers + +------+ + | Care Organ Grinder Name | Role | Phone | + +------+ + | Rahul Silva MD | PCP | | + +------+ + Encounter Details +--------+ + + + + | Date | Type | Department | Care Team | Description | +--------+ + + + + | 08/31/ | Orders Only | [facility] | Farrukh Acuna MD | | | 2013 | | NEPHROLOGY [place] | [address] | | | | | [address] | [address] [place], [place] | | | | | [address] [place] | [address] | | | | | [address] | | | | | | [phone] | | | +--------+ + + + [...] | | | | | | [place] [address] | | | | | | [phone] | | | | | | | | +--------+ + + + + | 09/19/ | Clinical | Cardiology | | | | 2019 | Support | | | | +--------+ + + + + | 10/03/ | Office | Cardiology | Ron Orosco MD | | 2019 | Visit | | [address] | | | | | | [place] | | | | | | [address] | | | | | | | | +--------+ + + + + | 10/30/ | Virtual | Nephrology | Farrukh Acuna MD | | | 2019 | Office | | [address] | | | | Visit | | [address] [place], [place] | | | | | | [address] | | | | | | | | +--------+ + + + + documented as of this encounter Procedures + +--------+ + + + | Procedure Name | Priori | Date/Time | Associated Diagnosis | Comments | | | ty | | | | + +--------+ + + + | EXTERNAL LAB: DUNIA | Routin | 08/31/2014 | | Results for this | | | e | 12:00 AM | | procedure are in the | | | | PDT | | results section. | + +--------+ + + + | IRON AND IRON | Routin | 08/31/2014 | | Results for this | | BINDING CAPACITY | e | 12:00 AM | | procedure are in the | | | | PDT | | results section. | + +--------+ + + + | VITAMIN D, | Routin | 08/31/2014 | | Results for this | | DEFICIENCY SCREEN | e | 12:00 AM | | procedure are in the | | (25-HYDROXY) | | PDT | | results section. | + +--------+ + + + | PARATHYROID HORMONE, | Routin | 08/31/2014 | | Results for this | | INTACT AND CALCIUM | e | 12:00 AM | | procedure are in the | | | | PDT | | results section. | + +--------+ + + + | URIC ACID | Routin | 08/31/2014 | | Results for this | | | e | 12:00 AM | | procedure are in the | | | | PDT | | results section. | + +--------+ + + + | TRANSFERRIN | Routin | 08/31/2014 | | Results for this | | | e | 12:00 AM | | procedure are in the | | | | PDT | | results section. | + +--------+ + + + | MAGNESIUM | Routin | 08/31/2014 | | Results for this | | | e | 12:00 AM | | procedure are in the | | | | PDT | | results section. | + +--------+ + + + | FERRITIN | Routin | 08/31/2014 | | Results for this | | | e | 12:00 AM | | procedure are in the | | | | PDT | | results section. | + +--------+ + + + | RENAL FUNCTION PANEL | Routin | 08/31/2014 | | Results for this | | | e | 12:00 AM | | procedure are in the | | | | PDT | | results section. | + +--------+ + + + documented in this encounter Results Iron and Iron Binding Capacity (08/31/2014 12:00 AM PDT) + + + + + + | Component | Value | Ref Range | Performed | Pathologist | | | | | At | Signature | + + + + + + | Iron | 64 | 37 - 160 | EXTERNAL | | | | | | LAB | | + + + + + + | Iron | 18.7 (A) | 20 - 55 | EXTERNAL | | | Saturation | | | LAB | | + + + + + + | TIBC | 342 | 245 - 400 | EXTERNAL | [...] + + Parathyroid Hormone, Intact and Calcium (08/31/2014 12:00 AM PDT) + + + + + + | Component | Value | Ref Range | Performed | Pathologist | | | | | At | Signature | + + + + + + | PTH Intact | 107.2 (A) | 15 - 65 | EXTERNAL [...] + + Vitamin D, Deficiency Screen (25-Hydroxy) (08/31/2014 12:00 AM PDT) + +--------+ + + + | Component | Value | Ref Range | Performed | Pathologist | | | | | At | Signature | + +--------+ + + + | Vit D, | 29 (A) | 30 - 100 | EXTERNAL [...] + +---------+ + + External Lab: CBC (08/31/2014 12:00 AM PDT) + + + + + + | Component | Value | Ref Range | Performed | Pathologist | | | | | At | Signature | + + + + + + | WBC | 10.4 | 4.5 - 11.0 10 | EXTERNAL | | | | | | LAB | | + + + + + + | Non- | 3.20 (A) | 4.3 - 5.7 10 | EXTERNAL | | | Red Blood | | | LAB | | | Cells | | | | | | Counted | | | | | + + + + + + | Hemoglobin | 9.8 (A) | 13.5 - 18.0 | EXTERNAL | | | | | g/dL | LAB | | + + + + + + | Hematocrit, | 30.0 (A) | 41 - 50 % | EXTERNAL | | | POC | | | LAB | | + + + + + + | MCV | 93.8 | 81 - 99 fL | EXTERNAL [...] + + + + | Platelet | 273 | 140 - 440 K/ L | [...] + + + | % Segmented | 61.2 | 39 - 80 % | EXTERNAL | | | | | | LAB | | | Neutrophils | | | | | + + + + + + | % | 10.3 (A) | 24 - 44 % | EXTERNAL | | | Lymphocytes | | | LAB | | + + + + + + | % Monocytes | 8.9 | 0 - 12 % | EXTERNAL | | | | | | LAB | | + + + + + + | % | 19.2 (A) | 0 - 6 % | EXTERNAL | | | Eosinophils | | | LAB | | + + + + + + | % Basophils | 0.4 | 0 - 2 % | EXTERNAL [...] | + +---------+ + + Uric Acid (08/31/2014 12:00 AM PDT) + +-------+ + + + | Component | Value | Ref Range | Performed | Pathologist | | | | | At | Signature | + +-------+ + + + | Uric Acid | 6.4 | 4.4 - 7.6 | EXTERNAL | [...] | | + +---------+ + + Transferrin (08/31/2014 12:00 AM PDT) + +-------+ + + + | Component | Value | Ref Range | Performed | Pathologist | | | | | At | Signature | + +-------+ + + + | TRANSFERRIN | 244 | 180 - 329 | EXTERNAL | [...] | | + +---------+ + + Magnesium (08/31/2014 12:00 AM PDT) + +-------+ + + [...] | | + +---------+ + + Ferritin (08/31/2014 12:00 AM PDT) + +-------+ + + + | Component | Value | Ref Range | Performed | Pathologist | | | | | At | Signature | + +-------+ + + + | Ferritin, | 110.2 | 30 - 400 ng/mL | EXTERNAL [...] + +---------+ + + Renal Function Panel (08/31/2014 12:00 AM PDT) + + + + + + | Component | Value | Ref Range | Performed | Pathologist | | | | | At | Signature | + + + + + + | Glucose, | 169 (A) | 70 - 100 mg/dL | EXTERNAL | | | Fasting | | | LAB | | + + + + + + | BUN | 29 (A) | 6 - 23 mg/dL | EXTERNAL | | | | | | LAB | | + + + + + + | Creatinine | 1.85 (A) | 0.70 - 1.18 | EXTERNAL [...] + + + + | Na | 133 | 132 - 143 | EXTERNAL | [...] + + + | Anion Gap | 12.3 | 7 - 21 mmol/L | EXTERNAL | | | | | | LAB | | + + + + + + | eGFR, | | | EXTERNAL | | | non- | | | LAB | | | Barb[place] | | | | | + + + + + + | Phosphorus, | 3.7 | 2.5 - 5.0 | EXTERNAL | | | Inorganic | | | LAB | | + + + + + + | BUN/Creatin | 15.7 | 6.0 - 28.6 | EXTERNAL | [...]
--- OUTSIDE RECORDS SUMMARY | ~2020-09-15 | XMS | Encounter Summary ---
Demographics + + + | Address | [address] | | | [place] [address] | + + + | Home Phone [...] Providers + +------+ + | Care Operating Systems Programmer Name | Role | Phone | + [...] [address] | | | | | [place], [place] | [place], [place] | | | | | [address] | [address] | | | | | [phone] | [phone] | | | | | | | [...] | | | | | | [place] [address] | | | | | | [phone] | | | | | | | [...] [place] | | | | | | [address] | | | | | | | | +--------+ + + + + | 10/30/ | Virtual | Nephrology | Farrukh Acuna MD | | | 2019 | Office | | [address] | | | | Visit | | [address] [place] | | | | | | [address] | | | | | | | [...]
--- OUTSIDE RECORDS SUMMARY | ~2020-09-15 | XMS | Encounter Summary ---
Demographics + + + | Address | [address] | | | [place] [address] | + + + | Home Phone | | + + + | Preferred Language | Unknown | + + + | Marital Status | Single | + + + | Confucianist Affiliation | PRO | + + + [...] [place] | | | | | [address] | | + + + + + Care Team Providers + +------+ + | Care Ball Assembler Name | Role | Phone | [...] [address] | | | | | | [place], [place] | | | | | | [address] | | | +--------+ + + + [...] as of this encounter Progress Notes Interface, Digester Hand In - 03/27/2007 3:12 AM PDT CLINIC [...] an abnormal AC-BE, he was referred to [facility] for colonoscopy. MEDICATIONS: 1. Vicodin. 2. Various [...] Dr. Valles who is his physician in [place], [place]. He has made me aware that [...] M.D. Fellow, Gastroenterology SHANEL/stephon cc: ARIA [place] [facility] [place] in this encounter Plan of Treatment Not on filedocumented as of this encounter Visit Diagnoses Not on filedocumented in this encounter"
--- OUTSIDE RECORDS SUMMARY | ~2020-09-15 | XMS | Encounter Summary ---
Demographics + + + | Address | [address] | | | [place] [address] | + + + | Home Phone [...] Author + + + | Author | [facility] | + + + | Organization | [facility] | + + + | Address | Unknown | + + + | Phone | Unavailable | + + + Support + + + + + | Name | Relationship | Address | Phone | + + + + + | Darci Andujar | VALERIE | [place] | | | | | [address] | | + + + + + Care Team Providers + +------+ + | Care Analytical Lab Analyst Name | Role | Phone | [...] Clinic | | | | | | [facility], [address] | | | | | | [place], [place] | | | | | | [address] | | | | | | [phone] | | | +--------+ + + + [...] of this encounter Progress Notes Interface, Manager Commission In - 01/06/2007 5:03 AM PST CLINIC DATE: 10/31/97 [facility] - PROCEDURE NOTE [...] his left thigh stump. Nelson Melara M.D. Sales Support Specialist, [facility] MANDY/maryjo documented in this encounter Plan of Treatment Not on filedocumented as of this encounter Visit Diagnoses Not on filedocumented in this encounter"
--- OUTSIDE RECORDS SUMMARY | ~2020-09-15 | XMS | Encounter Summary ---
Demographics + + + | Address | [address] | | | [place] [address] | + + + | Home Phone [...] | Transaction, | | | | | [place], [place] | Provider Unknown | | | | | [address] | [phone] | | | | | [phone] | | | +--------+ + + + [...] | | | | | | [place] [address] | | | | | | [phone] | | | | | | | [...] [place] | | | | | | [address] | | | | | | | | +--------+ + + + + | 10/30/ | Virtual | Nephrology | Farrukh Acuna MD | | | 2019 | Office | | [address] | | | | Visit | | [address] [place] | | | | | | [address] | | | | | | | [...] | EXTERNAL LAB | | Ordering Provider: ERVIN ANDREW, A , , [place], | | + + + + +---------+ + + | Performing | Address | City/State/Zipcode | Phone Number | | Organization | | | | + +---------+ + + | EXTERNAL LAB | | | | + +---------+ + + documented in this encounter Visit Diagnoses Not on filedocumented in this encounter"
--- OUTSIDE RECORDS SUMMARY | ~2020-09-15 | XMS | Encounter Summary ---
Demographics + + + | Address | [address] | | | [place] [address] | + + + | Home Phone [...] Team Providers + +------+ + | Care Nurse Staff Industrial Name | Role | Phone | + +------+ + | Rahul Silva MD | PCP | | + +------+ + Encounter Details +--------+ + + + + | Date | Type | Department | Care Team | Description | +--------+ + + + + | 06/23/ | Orders Only | [facility] | Farrukh Acuna MD | | | 2018 | | NEPHROLOGY [place] | [address] | | | | | [address] | [address] [place], [place] | | | | | [address] [place], [place] | [address] | | | | | [address] | | | | | | [phone] | | | +--------+ + + + [...] | | | | | | [place] [address] | | | | | | [phone] | | | | | | | [...] [place] | | | | | | [address] | | | | | | | | +--------+ + + + + | 10/30/ | Virtual | Nephrology | Farrukh Acuna MD | | | 2019 | Office | | [address] | | | | Visit | | [address] [place] | | | | | | [address] | | | | | | | [...]
--- OUTSIDE RECORDS SUMMARY | ~2020-09-15 | XMS | Encounter Summary ---
Demographics + + + | Address | [address] | | | [place] [address] | + + + | Home Phone | | + + + | Preferred Language | Unknown | + + + | Marital Status | | + + + | Yazidism Affiliation | 1077 | + + + | Race | White | + + + | Ethnic Group | Not or | + + + Author + + + | Author | [facility] | | | and [place] | + + + | Organization | [facility] | | | [...] Team Providers + +------+ + | Care Meat Seafood Associate Name | Role | Phone | + +------+ + | Rahul Silva MD | PCP | | + +------+ + Encounter Details +--------+ + + + + | Date | Type | Department | Care Team | Description | +--------+ + + + + | 12/19/ | Orders Only | [facility] | Conversion | | | 2016 | | NEPHROLOGY [place] | Transaction, | | | | | [address] | Provider Unknown | | | | | [address] [place] [address] | | | | | | [address] | (Fax) | | | | | [phone] | | | +--------+ + + + [...] | | | | | | [place] [address] | | | | | | [phone] | | | | | | | [...] [place] | | | | | | [address] | | | | | | | | +--------+ + + + + | 10/30/ | Virtual | Nephrology | Farrukh Acuna MD | | | 2019 | Office | | [address] | | | | Visit | | [address] [place] | | | | | | [address] | | | | | | | [...]
--- OUTSIDE RECORDS SUMMARY | ~2020-09-15 | XMS | Encounter Summary ---
Demographics + + + | Address | [address] | | | [place] [address] | + + + | Home Phone [...] Team Providers + +------+ + | Care Regulatory Affairs Strategy Specialist Name | Role | Phone | [...] + + | 11/08/ | Documentati | [facility] | Alfred, | Results (10/10/19) | | 2019 | on | NEPHROLOGY [place] | [facility] | | | | | [address] | Asphalt Roller Operator | | | | | [address] | | | | | | [place] | | | | | | [address] | | | | | | [phone] | | | +--------+ + + + [...] | | 2019 | Visit | | LINK KNITTING MACHINE OPERATOR [address] | | | | | | [address] | | | | | | [place] [address] | | | | | | [phone] | | | | | | | [...] [place] | | | | | | [address] | | | | | | | | +--------+ + + + + | 10/30/ | Virtual | Nephrology | Farrukh Acuna MD | | | 2019 | Office | | [address] | | | | Visit | | [address] [place] | | | | | | [address] | | | | | | | [...]
--- OUTSIDE RECORDS SUMMARY | ~2020-09-15 | XMS | Encounter Summary ---
Demographics + + + | Address | [address] | | | [place] [address] | + + + | Home Phone [...] Team Providers + +------+ + | Care Mentally Retarded Teacher Name | Role | Phone | + +------+ + | Rahul Sivla MD | PCP | | + +------+ + Encounter Details +--------+ + + + + | Date | Type | Department | Care Team | Description | +--------+ + + + + | 02/15/ | Orders Only | [facility] | Conversion | | | 2019 | | NEPHROLOGY [place] | Transaction, | | | | | [address] | Provider Unknown | | | | | [address] [place] [address] | | | | | | [address] | (Fax) | | | | | [phone] | | | +--------+ + + + [...] | | | | | | [place] [address] | | | | | | [phone] | | | | | | | [...] [place] | | | | | | [address] | | | | | | | | +--------+ + + + + | 10/30/ | Virtual | Nephrology | Farrukh Acuna MD | | | 2019 | Office | | [address] | | | | Visit | | [address] [place] | | | | | | [address] | | | | | | | [...]
--- OUTSIDE RECORDS SUMMARY | ~2020-09-15 | XMS | Encounter Summary ---
Demographics + + + | Address | [address] | | | [place] [address] | + + + | Home Phone [...] Team Providers + +------+ + | Care Creping Machine Operator Name | Role | Phone | + +------+ + | Rahul Silva MD | PCP | | + +------+ + Encounter Details +--------+---------+ + + + | Date | Type | Department | Care Team | Description | +--------+---------+ + + + | 12/06/ | Office | [facility] | Farrukh Acuna MD | CKD (chronic kidney | | 2020 | Visit | NEPHROLOGY [place] | [address] | disease) stage 5, | | | | [address] | [address] [place], [place] | GFR less than 15 | | | | [address] | [address] | ml/min (HCC) | | | | [place], [place] | | (Primary Dx); Anemia | | | | [address] | | of chronic kidney | | | | [phone] | | failure, stage 5 | | [...] hyperparathyroidism | | | | | | ([facility]); Type 2 | | | | | [...] Also: I see no need for acute RISK ASSESSMENT CONSULTANT. I see no need to send him [...] 10/2016 with severe pneumonia, severe ZEKE; needed RISK ASSESSMENT CONSULTANT for ~5 weeks b efore renal function recovery mid 12/2016. He was admitted to [facility] for 3 nights in July 2016 for [...] 10/2016 with severe pneumonia, severe ZEKE; needed RISK ASSESSMENT CONSULTANT for ~5 weeks b efore renal function [...] Also: I see no need for acute RISK ASSESSMENT CONSULTANT. I see no need to send him [...] | | | | | | [place] [address] | | | | | | [phone] | | | | | | | [...] [place] | | | | | | [address] | | | | | | | | +--------+ + + + + | 10/30/ | Virtual | Nephrology | Farrukh Acuna MD | | | 2019 | Office | | [address] | | | | Visit | | [address] [place], [place] | | | | | | [address] | | | | | | | | +--------+ + + + + documented as of this encounter Visit Diagnoses + + | Diagnosis | + + | CKD (chronic kidney disease) stage 5, GFR less than 15 ml/min ([facility]) - Primary Chronic | | kidney disease, [...]
--- OUTSIDE RECORDS SUMMARY | ~2020-09-15 | XMS | Encounter Summary ---
Demographics + + + | Address | [address] | | | [place] [address] | + + + | Home Phone [...] Team Providers + +------+ + | Care Deputy Juvenile Officer Name | Role | Phone | + +------+ + | Rahul Silva MD | PCP | | + +------+ + Reason for Visit + +--------+ + | Reason | Onset | Comments | | | Date | | + +--------+ + | Advice Only | 09/01/ | surgery | | | 2019 | | + +--------+ + Encounter Details +--------+ + + + + | Date | Type | Department | Care Team | Description | +--------+ + + + + | 09/01/ | Telephone | [facility] | Brian Orosco MD | Advice Only | | 2019 | | VASCULAR SURGERY | [address] | (surgery) | | | | [address] | [address] [place], [place] | | | | | [place], [place] | [address] | | | | | [address] | [phone] | | | | | [phone] | | | +--------+ + + + [...] Telephone Encounter - Andreina Blackwell RN - 09/01/2019 3:44 PM PDTReturn call made to An jose miguel, patient's tentative arrival time is 1 pm on 09/10/2019. Charlotte stated appreciation, sh e will arrange ride for patient. elephone Encounter - Rosalee Magallon - 09/01/2019 3:35 PM PDTCharlotte, is abdirizak sarika regarding Advice Only (surgery) and would like a call back. Additional Call Details: Charlotte is requesting a call back regarding patients upcoming surg hellen. Daughter needs to arrange for medical transport for patient to surgery. Is needing a time. If this is a symptom based call, was patient offered triage? Not Applicable If this is a symptom based call and you were unable to immediately transfer the call to a p erikavidixie inspector machine parts was caller made aware that if at [...] | | 2019 | Visit | | SUPERVISOR TANK CLEANING [address] | | | | | | [address] [place], | | | | | | [place] [address] | | | | | | [phone] | | | | | | | [...] [place] | | | | | | [address] | | | | | | | | +--------+ + + + + | 10/30/ | Virtual | Nephrology | Farrukh Acuna MD | | | 2019 | Office | | [address] | | | | Visit | | [address] [place] | | | | | | [address] | | | | | | | | +--------+ + + + + documented as of this encounter Visit Diagnoses Not on filedocumented in this encounter"
--- OUTSIDE RECORDS SUMMARY | ~2020-09-15 | XMS | Encounter Summary ---
Demographics + + + | Address | [address] | | | [place] [address] | + + + | Home Phone [...] Team Providers + +------+ + | Care Regional Driver Name | Role | Phone | [...] [address] | | | | | [place], [place] | [place], [place] | | | | | [address] | [address] | | | | | [phone] | [phone] | | | | | | | [...] | | | | | | [place] [address] | | | | | | [phone] | | | | | | | [...] [place] | | | | | | [address] | | | | | | | | +--------+ + + + + | 10/30/ | Virtual | Nephrology | Farrukh Acuna MD | | | 2019 | Office | | [address] | | | | Visit | | [address] [place] | | | | | | [address] | | | | | | | | +--------+ + + + + documented as of this encounter Procedures + +--------+ + + + | Procedure Name | Priori | Date/Time | Associated Diagnosis | Comments | | | ty | | | | + +--------+ + + + | CK TOTAL | Routin | 11/10/2016 | | Results for this | | | e | 4:27 AM | | procedure are in the | | | | PST | | results section. | + +--------+ + + + documented in this encounter Results CK Total (11/10/2016 4:27 AM PST) + +-------+ + + + | Component | Value | Ref Range | Performed | Pathologist | | | | | At | Signature | + +-------+ + + + | CK, Total | 176 | 55 - 400 U/L | EXTERNAL [...]
--- OUTSIDE RECORDS SUMMARY | ~2020-09-15 | XMS | Encounter Summary ---
Demographics + + + | Address | [address] | | | [place] [address] | + + + | Home Phone [...] Team Providers + +------+ + | Care Disability Examiner Name | Role | Phone | + +------+ + | Mehrdad Bergman | PCP | | + +------+ + Reason for Referral Home Health Care (Routine) +--------+ + + + + + | Status | Reason | Specialty | Diagnoses / | Referred By | Referred To | | | | | Procedures | Contact | Contact | +--------+ + + + + + | Closed | Specialty | Home Health | Diagnoses | [place], | | | | Services | Services | Acute on | Connie | | | | Required | | chronic | MD Cynthia | | | | | | systolic | [address] | | | | | | congestive | [address] | | | | | | heart | [place], | | | | | | failure | [place] [address] | | | | | | ([facility]) | Phone: | | | | | | | [phone] | | | | | | | Fax: | | | | | | | [phone] | | +--------+ + + + + + Evaluate & Treat (Routine) + + + + + + + | Status | Reason | Specialty | Diagnoses / | Referred By | Referred To | | | | | Procedures | Contact | Contact | + + + + + + + | Authorized | Specialty | Cardiology | Diagnoses | [place], | [facility] | | | Services | | ACS (acute | Ron Rosenbaum MD | Cardiology | | | Required | | coronary | [address] | | | | | syndrome) | [address] | [place], | | | | | ([facility]) | [place], | [place] | | | | | | [place] [address] | [address] | | | | | | Phone: | Phone: | | | | | | [phone] | [phone] | | | | | | Fax: | Fax: | | | | | | [phone] | [phone] | + + + + + + + Evaluate & Treat (Routine) + + + + + + + | Status | Reason | Specialty | Diagnoses / | Referred By | Referred To | | | | | Procedures | Contact | Contact | + + + + + + + | Pending | Specialty | Cardiac | Diagnoses | [place], | [facility] | | Review | Services | Rehabilitatio | ACS (acute | Ron Rosenbaum MD | | | | Required | n | coronary | [address] | Rehabilitatio | | | | | syndrome) | [address] | [address] | | | | | ([facility]) | [place], | [place] | | | | | | [place] [address] | [facility] | | | | | | Phone: | [phone] | | | | | | [phone] | Phone: | | | | | | Fax: | [phone] | | | | | | [phone] | Fax: | | | | | | | [phone] | + + + + + + + Reason for Visit Auth/Cert +--------+--------+ + + + + | Status | Reason | Specialty | Diagnoses / | Referred By | Referred To | | | | | Procedures | Contact | Contact | +--------+--------+ + + + + | | | | Diagnoses | | | | | | | CP, GIB | | | +--------+--------+ + + + + Encounter Details +--------+ + + + + | Date | Type | Department | Care Team | Description | +--------+ + + + + | 09/12/ | Hospital | [facility] | Pawel Mendieta MD | ACS (acute coronary | | 2020 - | Encounter | [facility] ICU [address] | syndrome) ([facility]) | | | | [place], | [place], [place] | (Primary Dx); | | 09/15/ | | [place] [address] | [id number] | Gastrointestinal | | 2019 | | [phone] | | hemorrhage, | | | | | | unspecified | | | | | | gastrointestinal | | | | | | hemorrhage type; | | | | | | ESRD (end stage | | | | | | renal disease) on | | | | | | dialysis ([facility]); | | | | | | NSTEMI (non-ST | | | | | | elevated myocardial | | | | | | infarction) ([facility]); | | | | | | Anemia, unspecified | | | | | | type; Acute | | | | | | respiratory failure | | | | | | with hypoxia ([facility]); | | | | | | CKD (chronic kidney | | | | | | disease) stage 5, | | | | | | GFR less than 15 | | | | | | ml/min ([facility]); Acute | | | | | | on chronic systolic | | | | | | congestive heart | | | | | | failure ([facility]) | +--------+ + + + [...] + + + | Blood Pressure | 96/42 | 09/15/2020 12:29 PM | | | | | PDT | | + + + + + | Pulse | 86 | 09/15/2020 12:29 PM | | | | | PDT | | + + + + + | Temperature | 36.9 C (98.5 F) | 09/15/2020 11:53 AM | | | | | PDT | | + + + + + | Respiratory Rate | 15 | 09/15/2020 12:29 PM | | | | | PDT | | + + + + + | Oxygen Saturation | 100% | 09/15/2020 12:29 PM | | | | | PDT | | + + + + + | Inhaled Oxygen | - | - | | | Concentration | | | | + + + + + | Weight | 82 kg (180 lb 12.4 | 09/15/2020 3:13 AM | | | | oz) | PDT | | + + + + + | Height | 172.7 cm (5' 8") | 09/12/2020 3:05 AM | | | | | PDT | | + + + + + | Body Mass Index | 27.49 | 09/12/2020 3:05 AM | | | | | PDT | | + + + + + documented in this encounter Functional Status + + + [...] documented as of this encounter Discharge Summaries Ron Orosco MD - 09/15/2020 7:26 AM PDT DISCHARGE SUMMARY PATIENT NAME/: Kavon Andujar, (1940) DATE OF ADMISSION: 09/12/2020 DATE OF DISCHARGE: 09/15/2020 ADMITTING DIAGNOSIS: ACS (acute coronary syndrome) (HCC) PRIMARY CARE PROVIDER: Mehrdad Bergman DISCHARGE DIAGNOSES: 1. Congestive heart failure 2. Ischemic cardiomyopathy 3. Status post stenting LAD and circumflex 4. End-stage renal disease 5. 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 Peripheral vascular disease with left BKA. DISPOSITION: Discharge to home CARDIAC PROCEDURES AND FINDINGS: Heart catheterization, echo, and stenting of the LAD and circumflex with normal patent R CA OTHER FINDINGS OF NOTE: Work-up for tonsillar cancer pending SUMMARY OF HISTORY AND PHYSICAL: Patient is admitted with chest pains and findings consiste nt with ischemic event. Prior hospitalization for the same. He did have significant anemia and bleeding from his tonsillar cancer. SUMMARIZED HOSPITAL COURSE: Patient was stabilized with dialysis with improved respiratory status. He received transfusions and his hematocrit improved to 25.3 with hemoglobin at 8 a t the time of discharge. Breathing was back to baseline with dialysis pending later in the day on his routine basis. DISCHARGE EXAM: General: Elderly gentleman. No distress Heart - regular rate and rhythm, S1 and S2 normal, no murmur, rub, or gallop. Lungs - Decreased at bases Neurologic - Grossly normal. MEDS: Discharge Medications Unchanged Medications Details albuterol-ipratropium 2.5-0.5 mg/3 mL Soln Take 3 mLs by nebulization Before breakfast, dinner and bedtime. aluminum & magnesium hydroxide-simethicone 400-400-40 mg/5 mL suspension Take 15 mLs by mouth every 4 hours as needed for Indigestion. aka: MAALOX PLUS DOUBLE STRENGTH ARANESP (ALBUMIN FREE) 100 mcg/0.5 mL injection Generic drug: darbepoetin amarjit Inject 0.5 mLs under the skin Every 28 days. aspirin 81 mg chewable tablet Take 81 mg by mouth Daily. atorvaSTATin 80 MG tablet Take 80 mg by mouth nightly. aka: LIPITOR calcitriol 0.25 mcg capsule Take 1 capsule by mouth Daily. aka: ROCALTROL CHOLECALCIFEROL PO Take 1 tablet by mouth Daily. clopidogrel 75 mg tablet Take 75 mg by mouth Daily. aka: PLAVIX cyanocobalamin 1,000 mcg tablet Take 1,000 mcg by mouth every 14 days. aka: VITAMIN B-12 docusate-senna 50-8.6 mg per tablet Take 2 tablets by mouth Daily. aka: SENOKOT-S doxepin 10 mg capsule 50 mg. aka: SINEquan ferrous sulfate 324 (65 Fe) MG EC tablet Take 65 mg of iron by mouth 4 times daily with meals. insulin aspart 100 units/mL injection cartridge Inject under the skin 3 times daily (before meals). Per following sliding scale: 151 20 0 = 2 units, 201-250 = 4 units, 251 300 = 6 units, 301 350 = 8 units, greater than 350 = 10 units and call M.D. aka: novoLOG PENFILL ipratropium 500 mcg/2.5 mL nebulizer solution Take 0.5 mg by nebulization 4 (four) times daily. aka: ATROVENT isosorbide mononitrate 30 mg ER tablet Take 1 tablet by mouth Daily. aka: IMDUR LANTUS SOLOSTAR 100 units/mL injection (pen) Generic drug: insulin glargine Inject 25 Units under the skin nightly. LINZESS 145 mcg capsule Generic drug: linaclotide lisinopril 2.5 MG tablet Take 1 tablet by mouth nightly. aka: PRINIVIL,ZESTRIL Magnesium 65 MG Tabs Take 1 tablet by mouth Daily. omeprazole 20 mg capsule Take 20 mg by mouth Daily. aka: priLOSEC ondansetron 8 mg disintegrating tablet aka: ZOFRVALENTINE ODT ONE TOUCH ULTRA TEST strip Generic drug: glucose blood test strips USE TO TEST BLOOD SUGAR five times a day oxyCODONE 15 mg immediate release tablet Take 15 mg by mouth every 4 hours. aka: ROXICODONE oxygen Inhale 4 L into the lungs as needed (If napping or having increased pain during the day). polyethylene glycol 17 g packet Take 17 g by mouth Daily. aka: MIRALAX sodium bicarbonate 650 mg tablet take 1 tablet by mouth four times a day torsemide 20 mg tablet Take 2 tablets by mouth Daily. aka: DEMADEX TRELEGY ELLIPTA 100-62.5-25 mcg/puff inhaler Generic drug: dirfsxnbjvz-tcnasrkzrifa-lynrqewkmi inhale 1 puff by mouth once daily albuterol 2.5 mg/3 mL nebulizer solution Take 2.5 mg by nebulization every 6 hours as needed for Wheezing. VENTOLIN HFA 90 mcg/puff inhaler Generic drug: albuterol inhale 2 puffs by mouth every 4 hours if needed for shortness of breath PATIENT INSTRUCTIONS: Activity: Activity as tolerated Diet: renal diet Other instructions: Discharge Instructions Eating Heart-Healthy Foods Eating has a big impact on your heart health. In fact, eating healthier can improve several of your heart risks at once. For instance, it helps you manage weight, cholesterol, and blo od pressure. Here are ideas to help you make heart-healthy changes without giving up allth e foods and flavors you love. Getting started Talk with your healthcare provider about eating plans, such as the DASH or Mediterranean diet. You may also be referred to a dietitian. Change a few things at a time. Give yourself time to get used to a few eating changes be fore adding more. Work to create a tasty, healthy eating plan that you can stick to for the rest of your l kaley. Goals for healthy eating Below are some tips to improve your eating habits: Limit saturated fats and trans fats. Saturated fats raise your levels of cholesterol, so keep these fats to a minimum. They are found in foods such as fatty meats, whole milk, jory se, and palm and coconut oils. Avoid trans fats because they lower good cholesterol as well as raise bad cholesterol. Trans fats are most often found in processed foods. Reduce sodium (salt) intake. Eating too much salt may increase your blood pressure. Limi t your sodium intake to 2,300 milligrams (mg) per day(the amount in 1 teaspoon of salt), o r less if your healthcare provider recommends it. Dining out less often and eating fewer pro cessed foods are two great ways to decrease the amount of salt you consume. Managing calories. A calorie is a unit of energy. Your body ayala calories for fuel, but if you eat more calories than your body ayala, the extras are stored as fat. Your healthcar e provider can help you create a diet plan to manage your calories. This will likely include eating healthier foods as well as exercising regularly. To help you track your progress, ke ep a diary to record what you eat and how often you exercise. Choose the right foods Aim to make these foods john of your diet. If you have diabetes, you may have different recommendations than what is listed here: Fruits and vegetables provide plenty of nutrients without a lot of calories. At meals, f ill half your plate with these foods. Split the other half of your plate between whole grain s and lean protein. Whole grains are high in fiber and rich in vitamins and nutrients. Good choices include whole-wheat bread, pasta, and brown rice. Lean proteins give you nutrition with less fat. Good choices include fish, skinless chic lucio, and beans. Low-fat or nonfat dairy provides nutrients without a lot of fat. Try low-fat or nonfat m ilk, cheese, or yogurt. Healthy fats can be good for you in small amounts. These are unsaturated fats, such as o live oil, nuts, and fish. Try to have at least 2 servings per week of fatty fish, such as sa lmon, sardines, mackerel, rainbow trout, and albacore tuna. These contain omega-3 fatty acid s, which are good for your heart. Flaxseed is another source of a heart-healthy fat. More on heart-healthy eating Read food labels Healthy eating starts at the grocery store. Be sure to pay attention to food labels on pack aged foods. Look for products that are high in fiber and protein, and low in saturated fat, cholesterol, and sodium. Avoid products that contain trans fat. And pay close attention to s erving size. For instance, if you plan to eat two servings, double all the numbers on the la bel. Prepare food right A blancas part of healthy cooking is cutting down on added fat and salt. Look on the internet f or lower-fat, lower-sodium recipes. Also, try these tips: Remove fat from meat and skin from poultry before cooking. Skim fat from the surface of soups and sauces. Broil, boil, bake, steam, grill, and microwave food without added fats. Choose ingredients that spice up your food without adding calories, fat, or sodium. Try these items: horseradish, hot sauce, lemon, mustard, nonfat salad dressings, and vinegar. Fo r salt-free herbs and spices, try basil, cilantro, cinnamon, pepper, and avtar. [employer] last reviewed this educational content on 08/31/201719994525-1262 The [employer]. [address] [place] [address], [place] [address]. All righ ts reserved. This information is not intended as a substitute for professional medical care. Always follow your healthcare professional's instructions. Discharge References/Attachments Angioplasty and Stent Placement for the Heart ([facility]) Follow-up: In [address] Ron Orosco. Time spent on discharge planning: greater than 30 minutes Portions of this chart may have been created with [employer] voice recognition software. Occasi onal wrong-word or sound-alike substitutions may have occurred due to the inherent vanegas itations of voice recognition software. Please read the chart carefully and recognize, using context, where these substitutions have occurred. documented in this encounter Discharge Instructions Instructions Ron Orosco MD - 09/15/2020 Eating Heart-Healthy Foods Eating has a big impact on your heart health. In fact, eating healthier can improve several of your heart risks at once. For instance, it helps you manage weight, cholesterol, and blo od pressure. Here are ideas to help you make heart-healthy changes without giving up allth e foods and flavors you love. Getting started Talk with your healthcare provider about eating plans, such as the DASH or Mediterranean diet. You may also be referred to a dietitian. Change a few things at a time. Give yourself time to get used to a few eating changes be fore adding more. Work to create a tasty, healthy eating plan that you can stick to for the rest of your l kaley. Goals for healthy eating Below are some tips to improve your eating habits: Limit saturated fats and trans fats. Saturated fats raise your levels of cholesterol, so keep these fats to a minimum. They are found in foods such as fatty meats, whole milk, jory se, and palm and coconut oils. Avoid trans fats because they lower good cholesterol as well as raise bad cholesterol. Trans fats are most often found in processed foods. Reduce sodium (salt) intake. Eating too much salt may increase your blood pressure. Limi t your sodium intake to 2,300 milligrams (mg) per day(the amount in 1 teaspoon of salt), o r less if your healthcare provider recommends it. Dining out less often and eating fewer pro cessed foods are two great ways to decrease the amount of salt you consume. Managing calories. A calorie is a unit of energy. Your body ayala calories for fuel, but if you eat more calories than your body ayala, the extras are stored as fat. Your healthcar e provider can help you create a diet plan to manage your calories. This will likely include eating healthier foods as well as exercising regularly. To help you track your progress, ke ep a diary to record what you eat and how often you exercise. Choose the right foods Aim to make these foods john of your diet. If you have diabetes, you may have different recommendations than what is listed here: Fruits and vegetables provide plenty of nutrients without a lot of calories. At meals, f ill half your plate with these foods. Split the other half of your plate between whole grain s and lean protein. Whole grains are high in fiber and rich in vitamins and nutrients. Good choices include whole-wheat bread, pasta, and brown rice. Lean proteins give you nutrition with less fat. Good choices include fish, skinless chic lucio, and beans. Low-fat or nonfat dairy provides nutrients without a lot of fat. Try low-fat or nonfat m ilk, cheese, or yogurt. Healthy fats can be good for you in small amounts. These are unsaturated fats, such as o live oil, nuts, and fish. Try to have at least 2 servings per week of fatty fish, such as sa lmon, sardines, mackerel, rainbow trout, and albacore tuna. These contain omega-3 fatty acid s, which are good for your heart. Flaxseed is another source of a heart-healthy fat. More on heart-healthy eating Read food labels Healthy eating starts at the grocery store. Be sure to pay attention to food labels on pack aged foods. Look for products that are high in fiber and protein, and low in saturated fat, cholesterol, and sodium. Avoid products that contain trans fat. And pay close attention to s erving size. For instance, if you plan to eat two servings, double all the numbers on the la bel. Prepare food right A blancas part of healthy cooking is cutting down on added fat and salt. Look on the internet f or lower-fat, lower-sodium recipes. Also, try these tips: Remove fat from meat and skin from poultry before cooking. Skim fat from the surface of soups and sauces. Broil, boil, bake, steam, grill, and microwave food without added fats. Choose ingredients that spice up your food without adding calories, fat, or sodium. Try these items: horseradish, hot sauce, lemon, mustard, nonfat salad dressings, and vinegar. Fo r salt-free herbs and spices, try basil, cilantro, cinnamon, pepper, and avtar. [employer] last reviewed this educational content on 08/31/201719999239-8373 The [employer]. [address] [place] [address], [place] [address]. All righ ts reserved. This information is not intended as a substitute for professional medical care. Always follow your healthcare professional's instructions. AttachmentsThe following attachments cannot be sent through Care Everywhere.Angioplasty and Stent Placement for the Heart (Stateless)documented in this encounter Medications at Time of Discharge + + + +---------+ + + | Medication | Sig | Dispensed | Refills | Start | End Date | | | | | | Date | | + + + +---------+ + + | albuterol | Inhale 2 puffs into | | 0 | | | | (VENTOLIN HFA) 90 | the lungs every 4 | | | | | | mcg/puff inhaler | hours as needed for | | | | | | | Shortness of Breath. | | | | | + + [...] | | | | | | | ([facility]), Secondary | | | | | | | hyperparathyroidism | | | | | | | ([facility]) | | | | | [...] + + + +---------+ + + | darbepoetin amarjit | Inject 0.5 mLs under | 0.5 mL | 5 | 07/27/ | | | (ARANESP, ALBUMIN | the skin Every | | | 20 | | | FREE,) 100 mcg/0.5 | days. | | | | | | mL | | | | | | | injectionIndications | | | | | | | : Essential | | | | | | | hypertension, Type 2 | | | | | | | diabetes mellitus | | | | | | | with diabetic | | | | | | | nephropathy, with | | | | | | | long-term current | | | | | | | use of insulin | | | | | | | (HCC), Anemia of | | | | | | | chronic kidney | | | | | | | failure, stage 5 | | | | | | | (HCC), Persistent | | | | | | | proteinuria, CKD | | | | | | | (chronic kidney | | | | | | | disease) stage 5, | | | | | | | GFR less than 15 | | | | | | | ml/min (HCC) | | | | | [...] + + +---------+ + + | | Inhale 1 puff into | | 0 | | | | fluticasone-umeclidi | the lungs Daily. | | | | | | nium-vilanterol | | | | | | | (TRELEGY ELLIPTA) | | | | | | | 100-62.5-25 mcg/puff | | | | | | | inhaler | | | | | | + + + +---------+ + + | hydrOXYzine | Take 25 mg by mouth | | 0 | | | | hydrochloride | every 8 hours as | | | | | | (ATARAX) 25 mg | needed. | | | | | [...] + + +---------+ + + | insulin glargine | Inject 30 Units | | 0 | | | | (LANTUS SOLOSTAR) | under the skin | | | | | | 100 units/mL | nightly. | | | | | | injection (pen) | | | | | | + + + +---------+ + + | isosorbide | Take 1 tablet by | 30 | 0 | 09/01/20 | | | mononitrate (IMDUR) | mouth Daily. | tablet | | 20 | | | 30 mg ER tablet | | | | | | + + + +---------+ + + | linaclotide | Take 145 mcg by | | 0 | | | | (LINZESS) 145 mcg | mouth every morning | | | | | | capsule | (before breakfast). | | | | | + + + +---------+ + + | lisinopril | Take 1 tablet by | 30 | 0 | 09/01/20 | | | (PRINIVIL,ZESTRIL) | mouth nightly. | tablet | | 20 | | | 2.5 MG tablet | | | | | | + + + +---------+ + + | LORazepam (ATIVAN) | Take 0.5 mg by mouth | | 0 | | | | 0.5 mg tablet | Twice daily as | | | | | | | needed For severe | | | | | | | anxiety . | | | | | + + + +---------+ + + | Magnesium 65 MG | Take 1 tablet by | | 0 | | | | TABS | mouth Daily. | | | | | + + + +---------+ + + | nitroglycerin | Place 0.4 mg under | | 0 | | | | (NITROSTAT) 0.4 mg | the tongue every 5 | | | | | | SL tablet | minutes as needed | | | | | | | for Chest pain May | | | | | | | repeat every 5 | | | | | | | minutes as needed | | | | | | | for a total of 3 | | | | | | | doses within a | | | | | | | 15-minute period. | | | | | | | If no relief, seek | | | | | | | medical attention | | | | | | | promptly . | | | | | + + + +---------+ + + | omeprazole | Take 20 mg by mouth | | 0 | 08/02/20 | | | (PRILOSEC) 20 mg | Daily. | | | 20 | | | capsule | | | | | | + + + +---------+ + + | ondansetron | Take 8 mg by mouth | | 0 | 06/18/20 | | | (ZOFRAN ODT) 8 mg [...] + + + +---------+ + + | polyethylene | Take 17 g by mouth | | 0 | | | | glycol (MIRALAX) | Daily. | | | | | | packet | | | | | | + + + +---------+ + + | sodium bicarbonate | take 1 tablet by | 1080 | 3 | 05/05/ | | | 650 mg | mouth four times a | tablet | | 20 | | | tabletIndications: | day | | | | | | Essential | | | | | | | hypertension, Anemia | | | | | | | of chronic kidney | | | | | | | failure, stage 5 | | | | | | | ([facility]), Persistent | | | | | | | proteinuria, CKD | | | | | | | (chronic kidney | | | | | | | disease) stage 5, | | | | | | | GFR less than 15 | | | | | | | ml/min ([facility]) | | | | | | + + + +---------+ + + | torsemide | Take 2 tablets by | 180 | 3 | 03/14/20 | | | (DEMADEX) 20 mg | mouth Daily. | tablet | | 20 | | | tabletIndications: | | | | | | | Essential | | | | | | | hypertension, | | | | | | | Persistent | | | | | | | proteinuria, CKD | | | | | | | (chronic kidney | | | | | | | disease) stage 5, | | | | | | | GFR less than 15 | | | | | | | ml/min (HCC) | | | | | | + + + +---------+ + + documented as of this encounter Progress Notes Jose L Johnson, Special Technical Operations Officer - 09/15/2020 11:59 AM MISSAELKavon Andujar was admi tted for NSTEMI and discharged home today (09/15/2020) Taught AVS education to patient. Education was focused on new medications and/or changed me dications. I explained indication, how to take, possible side effects, when to contact physi louis, and monitor parameters. The patient was reminded of follow-up appointment with cardiology. The patient verbalized understanding of the above and all questions were answered. Pharmaci st or PCP office will follow-up with patient in one to two business days. Patient was provid ed with a reconciled discharge medication list as part of their AVS instructions. Encouraged patient to share medication list with healthcare providers and keep list current. Jose L Johnson, Special Technical Operations Officer 09/15/2020 11:57 AM PDT Connie Ellis MD - 09/14/2020 3:00 PM PDTFormatting of this note might be differen t from the original. [facility] [place] HOSPITALIST PROGRESS NOTE Patient: Kavon Andujar : 1940: Age: 80 y.o. MedRec: [id number] Admission date: 09/12/2020 Hospital day # : 2 Physician author: Connie Chawla MD Today: 09/14/2020 HPI & Hospital Course Active Hospital Problems Diagnosis ACS (acute coronary syndrome) GI bleeding Resolved Hospital Problems No resolved problems to display. 80 y.o.malehas medical history significant for end-stage renal disease, history of CVA, diabetes mellitus type 2, COPD, Recent dx of tongue cancer and NSTEMI who presentsaga in with NSTEMI, type II ME possibly related to anemia from bleeding of his tongue cancer. PCI with stent x2 (LAD and circumflex) on 09/14/20 Assessment and Plan #Type II ME in setting ofHFrEF (35-40%) Patient with prior extensive work-up, deemed not candidate for interventionat that time -An echocardiogram on 08/25/2020 showed significant LAD involvement with anterior and anteri or septal akinesis as well as inferior septal and apical segment akinesis, dilated right beltran tricle with mildly dilated left ventricle and reduced ejection fraction of 35 to 40%. -Cardiology consulted this admission to reassess given repeat symptoms -Given recurrent symptoms, patient was taken for PCI today. Had stents x2 placed for high- grade proximal LAD and proximal circumflex lesions. -Increased Imdur -Holding aspirin and Plavix due to hemoptysis from his tongue cancer, will restart post pro cedure -PRN morphine -Continue to follow troponins, continues to improve -Follow hemoglobin, transfuse as needed to keep [id number] needed for symptoms #End-stage renal disease, on hemodialysis Appreciate nephrology consult Tolerated dialysis well yesterday -Dialysis scheduled M// -Monitor closely overnight given volume load today with PCI #Acute on Chronic Hypoxic respiratory failure in setting of COPD Home O2@ 4.5L/min -continue O2 as needed, currently weaned to home oxygen -BiPAP as needed -continue nebs prn #Anemia, likely due to slow bleed from tongue cancer -Status post 2 units packed red blood cells -Follow hemoglobin, currently stable -Continue to follow given oozing from cath site after procedure today -Transfuse as needed for symptoms or to keep above 7 -stopped protonix gtt as no evidence of GI/gastric bleed -monitor this procedure and as restarting antiplatelet therapy #Coronary artery disease and peripheral vascular disease due to hypertension, diabetes and end-stage renal disease. S/P Left AKA -Was holding aspirin and Plavix dueto bleed from tongue cancer, will need to restart -Holding doxepin due to acute ME -Continue statin -Continue Imdur, increase to 60 -Start AUGIE inhibitor, beta-soo and torsemide once blood pressure allows -continue to trend troponins #SCC tongue -has not yet seen oncology -PET was scheduled for 09/12 for staging, will need to reschedule -if pt expected to have prolonged stay in hospital, will consult Onc as inpatient #DM, A1C 7.1% BS 105-173, 2 units SSI - holding lantus for now, will restart if BS increase with eating -continue SSI -Accu check qac/hs #DVT prophy: SCD to right leg #FEN: Cardiac diet #Code: Full. Pt and family are reluctant to discuss prior to knowing cancer prognosis Connie Chawla MD 09/14/2020 3:00 PM PDT [facility] Subjective CC chest pain Patient was initially apprehensive about procedure today. He does get very short of breath with laying flat and takes several minutes to recover. He did have some chest pain with th at episode this morning, which did resolve fairly quickly. He went for PCI today with place ment of 2 stents and was reported to have oozing from his cath site ROS See above Exam General alert and oriented, talking in full sentences. No acute distress Cardiac regular rate and rhythm, no murmurs noted. Pulses are +2 Extremitiesleft AKA. No edema in right leg. He does have clubbing of his nails. No rashes noted. 2cm nodule anterior mid valencia on right with mild erythema, mo warmth, non-tende r Lungimproved inspiratory effort. no crackles today . No wheezes noted Abdominal+bowel sounds, soft, obese, nontender, nondistended Neuroalert and cooperative, no focal deficits noted Objective Data Vitals Ranges: Temp: [36.2 C (97.2 F)-37 C (98.6 F)] 36.4 C (97.5 F) Pulse: [66-96] 72 Resp: [11-21] 16 BP: (97-130)/(41-79) 105/50 FiO2 : [45 %] 45 % Vitals: Temp: 36.4 C (97.5 F) BP: 105/50 Pulse: 72 Resp: 16 SpO2: 100 % SpO2 100 % on (will transport on BiPap) at flow rate 4L/min Allergies: Allergies Allergen Reactions Trazodone Hallucination Current Medications: Current Facility-Administered Medications Medication Dose Route Frequency Provider Last Rate Last Dose albumin 25% IVPB 12.5 g 12.5 g Intravenous PRN Trinidad Barton MD albuterol 2.5 mg/3 mL nebulizer solution 2.5 mg 2.5 mg Nebulization Q6H PRN Pawel baron MD albuterol-ipratropium 2.5-0.5 mg/3 mL nebulizer solution 3 mL 3 mL Nebulization RT TID Pawel Mendieta MD 3 mL at 09/14/20 1449 atorvaSTATin (LIPITOR) tablet 80 mg 80 mg Oral Nightly Pawel Mendieta MD 80 mg at 2029 calcitriol (ROCALTROL) capsule 0.25 mcg 0.25 mcg Oral Daily Pawel Mendieta MD 0.25 m cg at 09/14/20 0833 cyanocobalamin (VITAMIN B-12) tablet 1,000 mcg 1,000 mcg Oral Q14 Days Pawel Mendieta MD 1,000 mcg at 09/12/20 1317 dextrose 50% injection 12.5-25 g 12.5-25 g Intravenous PRN Pawel Mendieta MD And dextrose 10% (D10W) infusion Intravenous Continuous PRN Pawel Mendieta MD docusate-senna (SENOKOT-S) 50-8.6 mg per tablet 2 tablet 2 tablet Oral Daily PRN Audelia Barton MD ferric gluconate (FERRLECIT) 125 mg in sodium chloride 0.9% 100 mL IVPB 125 mg Intrave nous Nightly Trinidad Barton MD 110 mL/hr at 10/14/20 2130 125 mg at 09/13/20 2130 HYDROmorphone (DILAUDID) injection 0.2-0.4 mg 0.2-0.4 mg Intravenous Q2H PRN Trinidad Barton MD insulin lispro (humaLOG KWIKPEN, ADMELOG) injection (pen) 0-12 Units 0-12 Units Subcut aneous 4x Daily AC and HS Connie Chawla MD 2 Units at 09/13/20 1737 isosorbide mononitrate (IMDUR) ER tablet 60 mg 60 mg Oral Daily Connie walsh MD 60 mg at 09/14/20 0833 lidocaine (PF) 1% injection 1 mL 1 mL Intradermal Dialysis - PRN Trinidad Barton MD nitroglycerin (NITROSTAT) SL tablet 0.4 mg 0.4 mg Sublingual Q5 Min PRN Pawel Mendieta MD oxyCODONE (ROXICODONE) tablet 15 mg 15 mg Oral Q6H Pawel Mendieta MD 15 mg at 1209 pantoprazole (PROTONIX) injection 40 mg 40 mg Intravenous Daily Pawel Mendieta MD 40 mg at 09/14/20 0833 sodium chloride 0.9% flush 100 mL 100 mL Intracatheter Q30 Min PRN Rory Ferrara Current Infusions: dextrose 10% Point of care glucose Recent Labs Lab 09/14/20 1143 09/14/20 0625 09/13/20 2031 09/13/20 1636 09/13/20 1152 09/13/20 0611 POCGLU 132* 119* 173* 152* 105 117* Labs last 24 hours Recent Results (from the past 24 hour(s)) POC Glucose Collection Time: 09/13/20 4:36 PM Result Value Ref Range Glucose, POC 152 (H) 70 - 109 mg/dL POC Glucose Collection Time: 09/13/20 8:31 PM Result Value Ref Range Glucose, POC 173 (H) 70 - 109 mg/dL Troponin I Collection Time: 09/13/20 8:50 PM Result Value Ref Range Troponin I 1.62 (HH) <0.06 ng/mL Troponin I Collection Time: 09/14/20 3:19 AM Result Value Ref Range Troponin I 1.42 (HH) <0.06 ng/mL CBC no Differential Collection Time: 09/14/20 3:19 AM Result Value Ref Range White Blood Cells 7.3 4.0 - 11.0 K/uL Red Blood Cells 3.14 (L) 4.30 - 5.70 M/uL Hemoglobin 9.1 (L) 13.5 - 18.0 g/dL Hematocrit 29.1 (L) 40.0 - 51.0 % MCV 92.7 83.0 - 101.0 fL MCH 29.0 28.0 - 35.0 pg MCHC 31.3 (L) 32.0 - 36.0 g/dL RDW-CV 14.6 <15.0 % RDW-SD 49.5 (H) 35.1 - 46.3 fL Platelet Count 219 140 - 440 K/uL MPV 10.2 6.5 - 12.4 fL % nRBC 0 0 - 2 per 100 WBCs Absolute nRBC 0.00 0.00 - 0.01 K/uL Renal Function Panel Collection Time: 09/14/20 3:20 AM Result Value Ref Range Na 136 136 - 145 mmol/L K 4.5 3.4 - 5.1 mmol/L Cl 102 98 - 107 mmol/L CO2 30 20 - 31 mmol/L Anion Gap 4 3 - 16 mmol/L Glucose 122 (H) 60 - 106 mg/dL BUN 33 (H) 9 - 23 mg/dL Creatinine 3.49 (H) 0.70 - 1.30 mg/dL eGFR, non- 17 (L) >=60 mL/min/1.73m2 eGFR, 21 (L) >=60 mL/min/1.73m2 Calcium 8.6 (L) 8.7 - 10.4 mg/dL Albumin 3.4 3.2 - 4.8 g/dL Phosphorus 3.5 2.4 - 5.1 mg/dL BUN/Creatinine Ratio 9.5 POC Glucose Collection Time: 09/14/20 6:25 AM Result Value Ref Range Glucose, POC 119 (H) 70 - 109 mg/dL Troponin I Collection Time: 09/14/20 9:16 AM Result Value Ref Range Troponin I 1.03 (HH) <0.06 ng/mL POC Glucose Collection Time: 09/14/20 11:43 AM Result Value Ref Range Glucose, POC 132 (H) 70 - 109 mg/dL POC ACT Collection Time: 09/14/20 1:45 PM Result Value Ref Range Activated Clotting Time, POC >400 (HH) 125 - 175 second(s) POC ACT Collection Time: 09/14/20 2:06 PM Result Value Ref Range Activated Clotting Time, POC >400 (HH) 125 - 175 second(s) Micro results (more choices using dot micro) Microbiology Results (72 hrs) Procedure Component Value Units Date/Time Coronavirus (COVID-19) NAAT [[id number]] (Normal) Collected: 09/12/20248 Order Status: Completed Lab Status: Final result Updated: 09/12/20350 Specimen: Tissue from Nasopharynx SARS-CoV-2, NAAT (COVID-19) Not Detected Comment: A Negative test result does not preclude COVID-19 infection and should not be us ed as the sole basis for treatment or other patient management decisions. Consider early ret esting of negative patients with clinical features suspicious for COVID-19 infection. This assay has been cleared for use under an FDA Emergency Use Authorization. This test is used for clinical purposes. It should not be regarded as investigational or for research. [facility] laboratory is certified under the Clinical Laboratory Improvement Amendments (CLIA) as qu alified to perform high complexity testing. This test has been validated in accordance with the FDA's Guidance Document "Policy for [facility] Testing in Laboratories Certified to Perform High Complexity Testing under CLIA marisol or to Emergency Use Authorization for Coronavirus Disease-2019 during the Public Health Vera gency" issued on January 29, 2020. FDA independent review of this validation is pending. This test is only authorized for the duration of time the declaration that circumstances exi st justifying the authorization of the emergency use of in vitro diagnostic tests for detect ion of SARS-CoV-2 virus and/or diagnosis of COVID-19 infection under section 564(b)(1) of e Act, 21 U.S.C. 360bbb-3(b)(1), unless the authorization is terminated or revoked sooner. Culture, MRSA [[id number]] (Normal) Collected: 09/12/20240 Order Status: Completed Lab Status: Final result Updated: 09/13/20 08 Specimen: Tissue from Nares Culture Negative for MRSA by chromogenic agar method. Radiology results (more choices using dot risresults) No results found. Portions of this chart may have been created with Izzui voice recognition software. Occasi onal wrong-word or sound-alike substitutions may have occurred due to the inherent vanegas itations of voice recognition software. Please read the chart carefully and recognize, using context, where these substitutions have occurred 09/14/20 Total time of approximately 45 minutes was spent with the patient and/or patient' s family, and/or on the patient's floor/unit, of which more than 50% was spent counseling an d/or coordination the patient's care as outlined above. AELBGenesis pérez MD - 09/13/2020 10:42 AM PDTFormatting of this note might be different fro m the original. [facility] [place] [place] H[facility]PITALIST PROGRESS NOTE Patient: Kavon Andujar : 1940: Age: 80 y.o. MedRec: [id number] Admission date: 09/12/2020 Hospital day # : 1 Physician author: Connie Chawla MD Today: 09/13/2020 HPI & Hospital Course Active Hospital Problems Diagnosis ACS (acute coronary syndrome) GI bleeding Resolved Hospital Problems No resolved problems to display. 80 y.o.malehas medical history significant for end-stage renal disease, history of CVA, diabetes mellitus type 2, COPD, Recent dx of tongue cancer and NSTEMI who presents agai n with NSTEMI, type II ME possibly related to anemia from bleeding of his tongue cancer. Assessment and Plan #Type II ME in setting of HFrEF (35-40%) Patient with prior extensive work-up, deemed not candidate for intervention at that time -An echocardiogram on 08/25/2020 showed significant LAD involvement with anterior and anteri or septal akinesis as well as inferior septal and apical segment akinesis, dilated right beltran tricle with mildly dilated left ventricle and reduced ejection fraction of 35 to 40%. -Cardiology has been consulted this admission to reassess given repeat symptoms -Increase Imdur -Holding aspirin and Plavix due to hemoptysis from his tongue cancer -Hb now stable, will restart -PRN morphine -Continue to follow troponins, currently improving -Follow hemoglobin, transfuse as needed to keep above 7 as needed for symptoms #End-stage renal disease, on hemodialysis Appreciate nephrology consult Tolerated dialysis well today -Dialysis scheduled M/W/F #Acute on Chronic Hypoxic respiratory failure in setting of COPD Home O2@ 4.5L/min -continue O2 as needed, currently weaned to home oxygen -BiPAP as needed -continue nebs prn #Anemia, likely due to slow bleed from tongue cancer -Status post 2 units packed red blood cells -Follow hemoglobin, currently stable -Transfuse as needed for symptoms or to keep above 7 -stop protonix gtt as no evidence of GI/gastric bleed -monitor as restarting antiplatelet therapy #Coronary artery disease and peripheral vascular disease due to hypertension, diabetes and end-stage renal disease. S/P Left AKA -Holding aspirin and Plavix due to bleed from tongue cancer -Holding doxepin due to acute ME -Continue statin -Continue Imdur, increase to 60 -Start AUGIE inhibitor, beta-soo and torsemide once blood pressure allows -continue to trend troponins #SCC tongue -has not yet seen oncology -PET was scheduled for today for staging, will need to reschedule -if pt expected to have prolonged stay in hospital, will consult Onc as inpatient #DM, A1C 7.1% BS 105-119 today - holding lantus while NPO, will restart if BS increase with eating -continue SSI -Accu check qac/hs #DVT prophy: SCD to right leg #FEN: NPO in case he needs intervention #Code: Full. Pt and family are reluctant to discuss prior to knowing cancer prognosis Connie Chawla MD 09/13/2020 10:42 AM PDT [facility] Subjective CC chest pain Patient is overall feeling better today. He is not having any further chest pain or lighth eadedness. He was grumpy this morning after not having eaten, but is in a much better mood now that he is eating. He tolerated 5 hours of dialysis today. His hemoglobin has remained stable and his troponin is now downtrending ROS See above Exam General alert and oriented, talking in full sentences. No acute distress Cardiac regular rate and rhythm, no murmurs noted. Unable to assess JVD due to body habitu s. Pulses are +2 Extremities left AKA. No edema in right leg. He does have clubbing of his nails. No rash es noted. 2cm nodule anterior mid valencia on right with mild erythema, mo warmth, non-tender Lung improved inspiratory effort. no crackles today . No wheezes noted Abdominal + bowel sounds, soft, obese, nontender, nondistended Neuro alert and cooperative, no focal deficits noted Objective Data Vitals Ranges: Temp: [36.3 C (97.3 F)-36.9 C (98.4 F)] 36.4 C (97.5 F) Pulse: [61-90] 84 Resp: [11-22] 11 BP: (89-139)/(42-78) 109/54 Vitals: Temp: 36.4 C (97.5 F) BP: 109/54 Pulse: 84 Resp: 11 SpO2: 100 % SpO2 100 % on nasal cannula at flow rate 4L/min Allergies: Allergies Allergen Reactions Trazodone Hallucination Current Medications: Current Facility-Administered Medications Medication Dose Route Frequency Provider Last Rate Last Dose albumin 25% IVPB 12.5 g 12.5 g Intravenous PRN Trinidad Barton MD albuterol 2.5 mg/3 mL nebulizer solution 2.5 mg 2.5 mg Nebulization Q6H PRN Pawel baron MD albuterol-ipratropium 2.5-0.5 mg/3 mL nebulizer solution 3 mL 3 mL Nebulization RT TID Pawel Mendieta MD 3 mL at 09/13/20 0823 atorvaSTATin (LIPITOR) tablet 80 mg 80 mg Oral Nightly Pawel Mendieta MD 80 mg at 2125 calcitriol (ROCALTROL) capsule 0.25 mcg 0.25 mcg Oral Daily Pawel Mendieta MD 0.25 m cg at 09/13/20 0856 cyanocobalamin (VITAMIN B-12) tablet 1,000 mcg 1,000 mcg Oral Q14 Days Pawel Mendieta MD 1,000 mcg at 09/12/20 1317 dextrose 50% injection 12.5-25 g 12.5-25 g Intravenous PRN Pawel Mendieta MD And dextrose 10% (D10W) infusion Intravenous Continuous PRN Pawel Mendieta MD docusate-senna (SENOKOT-S) 50-8.6 mg per tablet 2 tablet 2 tablet Oral Daily PRN Audelia Barton MD ferric gluconate (FERRLECIT) 125 mg in sodium chloride 0.9% 100 mL IVPB 125 mg Intrave nous Nightly Trinidad Barton MD HYDROmorphone (DILAUDID) injection 0.2-0.4 mg 0.2-0.4 mg Intravenous Q2H PRN Trinidad Barton MD insulin lispro (humaLOG KWIKPEN, ADMELOG) injection (pen) 0-12 Units 0-12 Units Subcut aneous Q6H Pawel Mendieta MD isosorbide mononitrate (IMDUR) ER tablet 60 mg 60 mg Oral Daily Connie walsh MD 60 mg at 09/13/20 0856 lidocaine (PF) 1% injection 1 mL 1 mL Intradermal Dialysis - PRN Trinidad Barton MD nitroglycerin (NITROSTAT) SL tablet 0.4 mg 0.4 mg Sublingual Q5 Min PRN Pawel Mendieta MD oxyCODONE (ROXICODONE) tablet 15 mg 15 mg Oral Q6H Pawel Mendieta MD 15 mg at 0606 pantoprazole (PROTONIX) injection 40 mg 40 mg Intravenous Daily Pawel Mendieta MD 40 mg at 09/13/20 0856 sodium chloride 0.9% flush 100 mL 100 mL Intracatheter Q30 Min PRN Rory Ferrara Current Infusions: dextrose 10% Point of care glucose Recent Labs Lab 09/13/20 0611 09/13/20 0014 POCGLU 117* 119* Labs last 24 hours Recent Results (from the past 24 hour(s)) Troponin I Collection Time: 09/12/20 3:04 PM Result Value Ref Range Troponin I 1.98 (HH) <0.06 ng/mL Troponin I Collection Time: 09/12/20 8:44 PM Result Value Ref Range Troponin I 2.53 (HH) <0.06 ng/mL Hemoglobin and Hematocrit Collection Time: 09/12/20 8:44 PM Result Value Ref Range Hematocrit 26.7 (L) 40.0 - 51.0 % Hemoglobin 8.7 (L) 13.5 - 18.0 g/dL POC Glucose Collection Time: 09/13/20 12:14 AM Result Value Ref Range Glucose, POC 119 (H) 70 - 109 mg/dL CBC no Differential Collection Time: 09/13/20 2:55 AM Result Value Ref Range White Blood Cells 7.1 4.0 - 11.0 K/uL Red Blood Cells 3.06 (L) 4.30 - 5.70 M/uL Hemoglobin 8.8 (L) 13.5 - 18.0 g/dL Hematocrit 27.4 (L) 40.0 - 51.0 % MCV 89.5 83.0 - 101.0 fL MCH 28.8 28.0 - 35.0 pg MCHC 32.1 32.0 - 36.0 g/dL RDW-CV 15.1 (H) <15.0 % RDW-SD 48.5 (H) 35.1 - 46.3 fL Platelet Count 212 140 - 440 K/uL MPV 10.1 6.5 - 12.4 fL % nRBC 0 0 - 2 per 100 WBCs Absolute nRBC 0.00 0.00 - 0.01 K/uL Troponin I Collection Time: 09/13/20 2:56 AM Result Value Ref Range Troponin I 3.25 (HH) <0.06 ng/mL Ferritin Collection Time: 09/13/20 2:56 AM Result Value Ref Range FERRITIN 420 (H) 11 - 307 ng/mL Iron and Transferrin Collection Time: 09/13/20 2:56 AM Result Value Ref Range Iron 31 (L) 65 - 175 ug/dL TRANSFERRIN 162.0 (L) 215.0 - 365.0 mg/dL TIBC 227 (L) 235 - 425 ug/dL % SATURATION 13.7 (L) 20.0 - 55.0 % Renal Function Panel Collection Time: 09/13/20 2:56 AM Result Value Ref Range Na 135 (L) 136 - 145 mmol/L K 4.6 3.4 - 5.1 mmol/L Cl 100 98 - 107 mmol/L CO2 32 (H) 20 - 31 mmol/L Anion Gap 3 3 - 16 mmol/L Glucose 118 (H) 60 - 106 mg/dL BUN 28 (H) 9 - 23 mg/dL Creatinine 3.71 (H) 0.70 - 1.30 mg/dL eGFR, non- 16 (L) >=60 mL/min/1.73m2 eGFR, 19 (L) >=60 mL/min/1.73m2 Calcium 8.6 (L) 8.7 - 10.4 mg/dL Albumin 3.4 3.2 - 4.8 g/dL Phosphorus 4.6 2.4 - 5.1 mg/dL BUN/Creatinine Ratio 7.5 B Type Natriuretic Peptide Collection Time: 09/13/20 2:56 AM Result Value Ref Range BNP 2,775 (H) <100 pg/mL ECG 12 lead Collection Time: 09/13/20 6:07 AM Result Value Ref Range INTERPRETATION TEXT Not Confirmed POC Glucose Collection Time: 09/13/20 6:11 AM Result Value Ref Range Glucose, POC 117 (H) 70 - 109 mg/dL Troponin I Collection Time: 09/13/20 7:50 AM Result Value Ref Range Troponin I 2.24 (HH) <0.06 ng/mL Micro results (more choices using dot micro) Microbiology Results (72 hrs) Procedure Component Value Units Date/Time Coronavirus (COVID-19) NAAT [[id number]] (Normal) Collected: 09/12/20 0249 Order Status: Completed Lab Status: Final result Updated: 09/12/20350 Specimen: Tissue from Nasopharynx SARS-CoV-2, NAAT (COVID-19) Not Detected Comment: A Negative test result does not preclude COVID-19 infection and should not be us ed as the sole basis for treatment or other patient management decisions. Consider early ret esting of negative patients with clinical features suspicious for COVID-19 infection. This assay has been cleared for use under an FDA Emergency Use Authorization. This test is used for clinical purposes. It should not be regarded as investigational or for research. [facility] laboratory is certified under the Clinical Laboratory Improvement Amendments (CLIA) as qu alified to perform high complexity testing. This test has been validated in accordance with the FDA's Guidance Document "Policy for [facility] Testing in Laboratories Certified to Perform High Complexity Testing under CLIA marisol or to Emergency Use Authorization for Coronavirus Disease-2019 during the Public Health Vera gency" issued on January 29, 2020. FDA independent review of this validation is pending. This test is only authorized for the duration of time the declaration that circumstances exi st justifying the authorization of the emergency use of in vitro diagnostic tests for detect ion of SARS-CoV-2 virus and/or diagnosis of COVID-19 infection under section 564(b)(1) of th e Act, 21 U.S.C. 360bbb-3(b)(1), unless the authorization is terminated or revoked sooner. Culture, MRSA [[id number]] (Normal) Collected: 09/12/20 0241 Order Status: Completed Lab Status: Final result Updated: 09/13/20 0832 Specimen: Tissue from Nares Culture Negative for MRSA by chromogenic agar method. Radiology results (more choices using dot risresults) Xr Chest 1 Vw Result Date: 09/12/2020 External films for comparison only No results will be in the chart. Portions of this chart may have been created with Izzui voice recognition software. Occasi onal wrong-word or sound-alike substitutions may have occurred due to the inherent vanegas itations of voice recognition software. Please read the chart carefully and recognize, using context, where these substitutions have occurred 09/13/20 Total time of approximately 60 minutes was spent with the patient and/or patient' s family, and/or on the patient's floor/unit, of which more than 50% was spent counseling an d/or coordination the patient's care as outlined above. each, Britta Triplett MD - 09/13/2020 10:01 AM PDTFormatting of this note might be different from the kathleen duarte. [facility] NEPHROLOGY PROGRESS NOTE Patient: Kavon Andujar : 1940 Hospital Day # 1 ASSESMENT AND PLAN 1. End-stage renal disease, on hemodialysis. ESRD due to DM, HTN. History of ZEKE requiring dialysis in 2016. Pt dialyzes in [facility], on MWF, via right upper arm AV fistula. 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 -HD today, 2K, UF goal 2.5 Liters 2. NSTEMI. H/o ACS with NSTEMI in Aug 2020. Troponin peaked to 8.0. No cardiac catheterization was completed due to active bleeding from right tonsillar cancer. Treated medically. Discharge d on ASA, Plavix, lisinopril 2.5 mg daily, Imdur 30 mg daily, atorvastatin 80 mg daily. Pt is presenting with chest pain, +troponin, EKG w/ TWI in lateral leads. -Troponin level peaked at 3.25; coming down this morning. -Pt is without chest pain this morning. 3. Acute respiratory distress with hypoxia. COPD with chronic hypercapnia. Outside ABG per H&P. -Treating with BIPAP and nebulizers. -UF goal 2.5 Liters with HD. 4. Anemia, unspecified. S/p 1 Unit of PRBC yesterday. Hb 7.8 g/dL prior to transfusion. H/o upper airway bleeding from right tonsillar cancer. Hb is improved to 8.8 g/dL. TSAT 13.7%. -Will give dose of IV iron, and resume his outpatient WALESKA dose. 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 Lesion biopsied last month, and diagnosed with SCC of right tonsil. Pt was scheduled for PET scan for Dr. Romo (Oncology) tomorrow. -Monitor for bleeding. -Will need to reschedule PET scan. SUBJECTIVE Pt reports feeling better this morning. Pt denies chest pain. Pt denies shortness of pawan th, cough, hemoptysis, abdominal pain. Pt had diarrhea this morning. CURRENT MEDICATIONS Scheduled Meds: albuterol-ipratropium 3 mL Nebulization RT TID atorvaSTATin 80 mg Oral Nightly calcitriol 0.25 mcg Oral Daily cyanocobalamin 1,000 mcg Oral Q14 Days docusate-senna 2 tablet Oral Daily insulin lispro 0-12 Units Subcutaneous Q6H isosorbide mononitrate 60 mg Oral Daily oxyCODONE 15 mg Oral Q6H pantoprazole 40 mg Intravenous Daily Continuous Infusions: dextrose 10% PRN Meds:albumin, albuterol, Hypoglycemia Management AND POCT Glucose AND dextrose AND dextrose 10%, HYDROmorphone, lidocaine (PF), nitroglycerin, sodium chloride 0.9% OBJECTIVE VITAL SIGNS: Vital sign ranges for last 24hrs: Input and output for last 24hrs: Temp: [36.3 C (97.3 F)-36.9 C (98.4 F)] 36.4 C (97.5 F) Pulse: [61-90] 88 Resp: [11-22] 14 BP: (89-139)/(42-78) 117/45 SpO2 Av.3 % Min: 97 % Max: 100 % Flow (L/min) Av Min: 4 Max: 4 09/12 0701 - 09/13 0700 In: 100 [P.O.:100] Out: 325 [Urine:325] General: In no acute distress, seen during dialysis treatment. Cardiac: Regular rate and rhythm, normal S1 and S2. No RLE peripheral edema. Chest: Normal respiratory effort. Clear to auscultation anteriorly. Abdomen: Soft, non-distended, non-tender, normal bowel sounds. Msk: L AKA. Skin: No rash. Neuro: Alert, interactive. Psych: Normal affect. Normal speech. Calmer. Access: Right upper arm AVF cannulated. LABORATORY DATA: Recent Labs Lab 09/13/2025409/12/20204309/12/20 0430 WBC 7.1 -- 7.3 HGB 8.8* 8.7* 8.5* HCT 27.4* 26.7* 26.8* PLT 212 -- 233 Recent Labs Lab 09/13/206 09/12/20 0430 NA 135* 136 K 4.6 3.9 CL 100 100 CO2 32* 31 BUN 28* 19 CREA 3.71* 2.75* CALCIUM 8.6* 8.5* PHOS 4.6 -- ALBUMIN 3.4 -- GLU 118* 138* Recent Labs Lab 09/12/20 0430 MG 2.0 Diagnostic Studies: Available data and images were reviewed personally. Significant results and findings are ad dressed here or in the Assessment and Plan. Trinidad Barton MD Electronically signed: 09/13/2020 10:03 AM PDT [facility] onnie Chawla MD - 09/12/2020 4:15 PM PDTFormatting of this note might be different from the kathleen ginal. [facility] TRE [facility] HOSPITALIST PROGRESS NOTE Patient: Kavon Andujar : 1940: Age: 80 y.o. MedRec: [id number] Admission date: 09/12/2020 Hospital day # : 0 Physician author: Connie Chawla MD Today: 09/12/2020 HPI & Hospital Course Active Hospital Problems Diagnosis ACS (acute coronary syndrome) GI bleeding Resolved Hospital Problems No resolved problems to display. 80 y.o. male has medical history significant for end-stage renal disease, history of CVA, d iabetes mellitus type 2, COPD, Recent dx of tongue cancer and NSTEMI who presents again wi th NSTEMI, type II ME possibly related to anemia from bleeding of his tongue cancer. 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 -Cardiology has been consulted this admission to reassess given repeat symptoms -Increase Imdur -Holding aspirin and Plavix due to hemoptysis from his tongue cancer -PRN morphine -Continue to follow troponins -Follow hemoglobin, transfuse as needed to keep above 7 as needed for symptoms -Per cardiology, re-reassess after dialysis tomorrow #End-stage renal disease, on hemodialysis Appreciate nephrology consult -Dialysis scheduled for tomorrow #Anemia, likely due to slow bleed from tongue cancer -Status post 2 units packed red blood cells -Follow hemoglobin -Transfuse as needed for symptoms or to keep above 7 -stop protonix gtt as no evidence of GI/gastric bleed #Coronary artery disease and peripheral vascular disease due to hypertension, diabetes and end-stage renal disease. S/P Left AKA -Holding aspirin and Plavix due to bleed from tongue cancer -Holding doxepin due to acute ME -Continue statin -Continue Imdur, increase to 60 -Start AUGIE inhibitor, beta-soo and torsemide once blood pressure allows -continue to trend troponins #SCC tongue -has not yet seen oncology -PET was scheduled for tomorrow for staging -if pt expected to have prolonged stay in hospital, will consult Onc as inpatient #DM, A1C 7.1% - holding lantus while NPO -continue SSI -Accu check q6hr #DVT prophy: SCD to right leg #FEN: NPO in case he needs intervention #Code: Full. Pt and family are reluctant to discuss prior to knowing cancer prognosis Disposition: Unclear at this time. Remain in ICU today Connie Chawla MD 09/12/2020 4:15 PM PDT [facility] Subjective CC chest pain Patient continues to have chest pressure today. Relieved with nitro earlier, has not had a ny further doses. He does state that his breathing is easier with the BiPAP. Denies fever, chills, cough, nausea. And it has been increasing throughout the day ROS See above Exam General alert, calm, appears uncomfortable but no acute distress Cardiac regular rate and rhythm, no murmurs noted. Unable to assess JVD due to body habitu s. Pulses are +2 Extremities left AKA. No edema in right leg. He does have clubbing of his nails. No rash es noted Lung poor inspiratory effort. Mild crackles bilateral bases. No wheezes noted Abdominal + bowel sounds, soft, obese, nontender, nondistended Neuro alert and cooperative, no focal deficits noted Objective Data Vitals Ranges: Temp: [35.9 C (96.6 F)-36.9 C (98.4 F)] 36.8 C (98.2 F) Pulse: [76-92] 79 Resp: [10-25] 17 BP: (90-145)/(48-73) 128/58 Vitals: Temp: 36.8 C (98.2 F) BP: 128/58 Pulse: 79 Resp: 17 SpO2: 100 % SpO2 100 % on nasal cannula at flow rate 4L/min Allergies: Allergies Allergen Reactions Trazodone Hallucination Current Medications: Current Facility-Administered Medications Medication Dose Route Frequency Provider Last Rate Last Dose albuterol 2.5 mg/3 mL nebulizer solution 2.5 mg 2.5 mg Nebulization Q6H PRN Pawel baron MD albuterol-ipratropium 2.5-0.5 mg/3 mL nebulizer solution 3 mL 3 mL Nebulization RT TID Pawel Mendieta MD 3 mL at 09/12/20 1535 atorvaSTATin (LIPITOR) tablet 80 mg 80 mg Oral Nightly Pawel Mendieta MD 80 mg at 0318 calcitriol (ROCALTROL) capsule 0.25 mcg 0.25 mcg Oral Daily Pawel Mendieta MD 0.25 m cg at 09/12/20 1200 cyanocobalamin (VITAMIN B-12) tablet 1,000 mcg 1,000 mcg Oral Q14 Days Pawel Mendieta MD 1,000 mcg at 09/12/20 1317 dextrose 50% injection 12.5-25 g 12.5-25 g Intravenous PRN Pawel Mendieta MD And dextrose 10% (D10W) infusion Intravenous Continuous PRN Pawel Mendieta MD docusate-senna (SENOKOT-S) 50-8.6 mg per tablet 2 tablet 2 tablet Oral Daily Pawel narayanan MD 2 tablet at 09/12/20 1159 ferrous sulfate tablet 325 mg 325 mg Oral Daily with breakfast Pawel Mendieta MD 325 mg at 09/12/20 1200 insulin lispro (humaLOG KWIKPEN, ADMELOG) injection (pen) 0-12 Units 0-12 Units Subcut aneous Q6H Pawel Mendieta MD [START ON 09/13/2020] isosorbide mononitrate (IMDUR) ER tablet 60 mg 60 mg Oral Daily Connie Chawla MD morphine injection 2 mg 2 mg Intravenous Q2H PRN Connie Chawla MD oxyCODONE (ROXICODONE) tablet 15 mg 15 mg Oral Q6H Pawel Mendieta MD 15 mg at 1200 pantoprazole (PROTONIX) injection 40 mg 40 mg Intravenous Daily Pawel Mendieta MD 40 mg at 09/12/20 0358 Current Infusions: dextrose 10% Point of care glucose No results for input(s): POCGLU in the last 168 hours. Labs last 24 hours Recent Results (from the past 24 hour(s)) Coronavirus (COVID-19) NAAT Collection Time: 09/12/20 2:49 AM Specimen: Nasopharynx; Tissue Result Value Ref Range SARS-CoV-2, NAAT (COVID-19) Not Detected Not Detected ECG 12 lead Collection Time: 09/12/20 2:50 AM Result Value Ref Range VENTRICULAR RATE EKG 81 BPM ATRIAL RATE 81 BPM P-R INTERVAL 194 ms QRS DURATION 98 ms Q-T INTERVAL 438 ms Q-T INTERVAL (CORRECTED) 508 ms P WAVE AXIS 24 degrees QRS AXIS 22 degrees T AXIS 53 degrees INTERPRETATION TEXT Normal sinus rhythm ST & T wave abnormality, consider anterolateral ischemia Long QTc Abnormal ECG When compared with ECG of 03-AUG-2016 22:45, ST now depressed in Lateral leads T wave inversion now evident in Anterolateral leads QTc has lengthened Confirmed by AYAH RON MD ([id number]) on 09/12/2020 7:14:13 AM Basic Metabolic Panel Collection Time: 09/12/20 4:30 AM Result Value Ref Range Na 136 136 - 145 mmol/L K 3.9 3.4 - 5.1 mmol/L Cl 100 98 - 107 mmol/L CO2 31 20 - 31 mmol/L Anion Gap 5 3 - 16 mmol/L Glucose 138 (H) 60 - 106 mg/dL BUN 19 9 - 23 mg/dL Creatinine 2.75 (H) 0.70 - 1.30 mg/dL eGFR, non- 22 (L) >=60 mL/min/1.73m2 eGFR, 27 (L) >=60 mL/min/1.73m2 Calcium 8.5 (L) 8.7 - 10.4 mg/dL BUN/Creatinine Ratio 6.9 CBC no Differential Collection Time: 09/12/20 4:30 AM Result Value Ref Range White Blood Cells 7.3 4.0 - 11.0 K/uL Red Blood Cells 2.96 (L) 4.30 - 5.70 M/uL Hemoglobin 8.5 (L) 13.5 - 18.0 g/dL Hematocrit 26.8 (L) 40.0 - 51.0 % MCV 90.5 83.0 - 101.0 fL MCH 28.7 28.0 - 35.0 pg MCHC 31.7 (L) 32.0 - 36.0 g/dL RDW-CV 14.3 <15.0 % RDW-SD 47.0 (H) 35.1 - 46.3 fL Platelet Count 233 140 - 440 K/uL MPV 10.3 6.5 - 12.4 fL % nRBC 0 0 - 2 per 100 WBCs Absolute nRBC 0.00 0.00 - 0.01 K/uL Magnesium Collection Time: 09/12/20 4:30 AM Result Value Ref Range Magnesium 2.0 1.6 - 2.6 mg/dL Troponin I Collection Time: 09/12/20 4:30 AM Result Value Ref Range Troponin I 0.48 (H) <0.06 ng/mL Type and Screen Collection Time: 09/12/20 4:30 AM Result Value Ref Range ABO B Rh Type Negative Antibody Screen Negative Red Blood Cells (PRBC) - Crossmatch Collection Time: 09/12/20 5:48 AM Result Value Ref Range Product Code W0328G07 UNIT # [id number] UNIT ABO B UNIT RH NEG CROSSMATCH INTERP Compatible Unit Status Crossmatched Blood Product Expiration Date and Time 694957901747 Product Blood Type Barcode 1700 Red Blood Cells (PRBC) - Crossmatch Collection Time: 09/12/20 6:56 AM Result Value Ref Range Product Code M2544R04 UNIT # [id number] UNIT ABO B UNIT RH NEG CROSSMATCH INTERP Compatible Unit Status Issued Blood Product Expiration Date and Time [id number] Product Blood Type Barcode 1700 Troponin I Collection Time: 09/12/20 8:37 AM Result Value Ref Range Troponin I 0.93 (HH) <0.06 ng/mL Troponin I Collection Time: 09/12/20 3:04 PM Result Value Ref Range Troponin I 1.98 (HH) <0.06 ng/mL Micro results (more choices using dot micro) Microbiology Results (72 hrs) Procedure Component Value Units Date/Time Coronavirus (COVID-19) NAAT [[id number]] (Normal) Collected: 09/12/20 0249 Order Status: Completed Lab Status: Final result Updated: 09/12/20350 Specimen: Tissue from Nasopharynx SARS-CoV-2, NAAT (COVID-19) Not Detected Comment: A Negative test result does not preclude COVID-19 infection and should not be us ed as the sole basis for treatment or other patient management decisions. Consider early ret esting of negative patients with clinical features suspicious for COVID-19 infection. This assay has been cleared for use under an FDA Emergency Use Authorization. This test is used for clinical purposes. It should not be regarded as investigational or for research. [facility] laboratory is certified under the Clinical Laboratory Improvement Amendments (CLIA) as qu alified to perform high complexity testing. This test has been validated in accordance with the FDA's Guidance Document "Policy for [employer] Testing in Laboratories Certified to Perform High Complexity Testing under CLIA marisol or to Emergency Use Authorization for Coronavirus Disease-2019 during the [facility] gency" issued on January 29, 2020. FDA independent review of this validation is pending. This test is only authorized for the duration of time the declaration that circumstances exi st justifying the authorization of the emergency use of in vitro diagnostic tests for detect ion of SARS-CoV-2 virus and/or diagnosis of COVID-19 infection under section 564(b)(1) of th e Act, 21 U.S.C. 360bbb-3(b)(1), unless the authorization is terminated or revoked sooner. Culture, MRSA [[id number]] Collected: 09/12/20240 Order Status: Sent Lab Status: In process Updated: 09/12/20243 Specimen: Tissue from Nares Radiology results (more choices using dot risresults) Xr Chest 1 Vw Result Date: 09/12/2020 External films for comparison only No results will be in the chart. Portions of this chart may have been created with [employer] voice recognition software. Occasi onal wrong-word or sound-alike substitutions may have occurred due to the inherent vanegas itations of voice recognition software. Please read the chart carefully and recognize, using context, where these substitutions have occurred 09/12/20 Total time of approximately 90 minutes was spent with the patient and/or patient' s family, and/or on the patient's floor/unit, of which more than 50% was spent counseling an d/or coordination the patient's care as outlined above. documented in this encounter H&P Notes Pawel Mendieta MD - 09/12/2020 4:33 AM PDTGOALS OF CARE NOTE Participants: Who was present? Patient and Adult Child Does patient have capacity?: Yes Charlotte (daughter) was a part of conversation via speakerphone Understanding of your illness: What is your understanding now of where you are with your illness?: Unstable Information preferences: How much information about what is likely to be ahead with your illness would you like to h ave? Patient wants to be fully informed Prognosis: What did you communicate to the patient regarding illness? Unstable Goals/Hopes: If your health situation worsens, what are your most important goals? Be at home, Be independent, Be mentally aware and Be physically comfortable Function: Which types of functional impairment would be unacceptable to you? Being in pain or very uncomfortable and Being unable to interact with others Tradeoffs: If you become sicker, how much are you willing to go through for the possibility of gaining more time? Be on a ventilator, Be in the ICU, Be in the hospital and Undergo aggressive tests and/or p rocedure Family: How much do your proxy and family know about your priorities and wishes? Wants clinician to talk with family How much do you want your family to know? Wants clinician to talk with family Goals and Plan of Medical Care: Full diagnostic and treatment of condition Pawel Mendieta MD 09/12/20 4:34 AM PDT Pawel Kerns MD - 1 1:43 AM PDT [facility] HISTORY AND PHYSICAL Pt. Name/Age/: Kavon Andujar 80 y.o. 1940 Date of admission: (Not on file) Admitting Physician: Pawel Mendieta MD Primary Care Provider: Mehrdad Bergman CHIEF COMPLAINT: Chest pain HISTORY OF PRESENT ILLNESS: This is a 80 y.o. male has medical history significant for end-stage renal disease, history of CVA, diabetes mellitus type 2, COPD, Recent dx of tongue cancer and NSTEMI who present s with chest pain. He describes pain as pressure. Pressure is over his anterior chest. P atient states that he has pressure with minimal movement: Getting out of bed into wheelchair . Patient states that he has been having increasing shortness of breath. He has been incre asing his oxygen via nasal cannula from -. Patient's been using his puffers witho ut much improvement. Patient states that he has been coughing up blood daily from his tongu e cancer. He denies fevers and/or chills. Patient states he has outpatient PET scan schedu led to develop treatment plan for tongue cancer. He states he takes oxycodone every 4 hours for phantom leg pain. At OSH, pt Was started on 1 unit prbc and/give NTG. 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) Renal insufficiency Stroke (HCC) Stump pain (HCC) Past Surgical History: Procedure Laterality Date ABOVE KNEE AMPUTATION Left AMPUTATION Above knee amputation of Left Lower extremity AV FISTULA INSERTION Right 09/10/2019 Procedure: INSERTION AV FISTULA (Right BBF); Surgeon: Brian Orosco MD; [place] [facility] [place] CHOLECYSTECTOM[place] COLONOSCOPY HIATAL HERNIA REPAIR LEG SURGERY x2 on stump of amputated leg OTHER SURGICAL HISTORY CATARACT EXTRACTION BILATERAL PANCREAS SURGERY tumor removal FAMILY HISTORY: family history includes Cancer in his father; Heart disease in his father; Hypertension in his brother and mother. SOCIAL HISTORY: reports that he has been smoking. He has a 14.75 pack-year smoking history. He has never u sed smokeless tobacco. He reports that he does not drink alcohol or use drugs. 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 albuterol-ipratropium (DUONEB) 2.5-0.5 mg/3 mL SOLN Take 3 mLs by nebulization Before b reakfast, dinner and bedtime. aluminum & magnesium hydroxide-simethicone (MAALOX PLUS DOUBLE STRENGTH) 400-400-40 mg/ 5 mL suspension Take 15 mLs by mouth every 4 hours as needed for Indigestion. aspirin 81 mg chewable tablet Take 81 mg by mouth Daily. atorvaSTATin (LIPITOR) 80 MG tablet Take 80 mg by mouth nightly. calcitriol (ROCALTROL) 0.25 mcg capsule Take 1 capsule by mouth Daily. CHOLECALCIFEROL PO Take 1 tablet by mouth Daily. clopidogrel (PLAVIX) 75 mg tablet Take 75 mg by mouth Daily. cyanocobalamin (VITAMIN B-12) 1000 MCG tablet Take 1,000 mcg by mouth every 14 days. darbepoetin amarjit (ARANESP, ALBUMIN FREE,) 100 mcg/0.5 mL injection Inject 0.5 mLs under the skin Every 28 days. docusate-senna (SENOKOT-S) 50-8.6 mg per tablet Take 2 tablets by mouth Daily. doxepin (SINEQUAN) 10 mg capsule 50 mg. ferrous sulfate 324 (65 Fe) MG EC tablet Take 65 mg of iron by mouth 4 times daily with meals. insulin aspart (NOVOLOG PENFILL) 100 units/mL injection [...] mg by nebulization 4 (four) times daily. isosorbide mononitrate (IMDUR) 30 mg ER tablet Take 1 tablet by mouth Daily. LANTUS SOLOSTAR 100 UNIT/ML injection (pen) Inject 25 Units under the skin nightly. LINZESS 145 MCG capsule lisinopril (PRINIVIL,ZESTRIL) 2.5 MG tablet Take 1 tablet by mouth nightly. Magnesium 65 MG TABS Take 1 tablet by mouth Daily. omeprazole (PRILOSEC) 20 mg capsule Take 20 mg by mouth Daily. ondansetron (ZOFRAN ODT) 8 mg disintegrating tablet ONE TOUCH ULTRA TEST strip USE TO TEST BLOOD SUGAR five times a day oxyCODONE (ROXICODONE) 15 mg immediate release tablet Take 15 mg by mouth every 4 hours . oxygen Inhale 4 L into the lungs as needed (If napping or having increased pain during the day). polyethylene glycol (MIRALAX) packet Take 17 g by mouth Daily. sodium bicarbonate 650 mg tablet take 1 tablet by mouth four times a day torsemide (DEMADEX) 20 mg tablet Take 2 tablets by mouth Daily. TRELEGY ELLIPTA 100-62.5-25 MCG/INH inhaler inhale 1 puff by mouth once daily VENTOLIN HFA 108 (90 Base) MCG/ACT inhaler inhale 2 puffs by mouth every 4 hours if nee ded for shortness of breath ALLERGIES: Allergies Allergen Reactions Trazodone Hallucination VITAL SIGNS: , , , , SpO2 on at flow rate L/min No data recorded PHYSICAL EXAMINATION: Gen Cherry - alert, anxieous, cooperative and distress Head - Normocephalic, without obvious abnormality, atraumatic Eyes - PERRL, conjunctiva/corneas clear, EOM's intact both eyes ENT - mucous membranes moist Neck - supple Lungs - reduced air movement bilaterally, no wheezing or rhonchi. Heart - normal rate, rhythm w/o m/r/g Abdomen - obese Normoactive bowel sounds, non-tender non-distended Extremities - Left AKA, C/d/i no peripheral edema, no clubbing or cyanosis Skin - dry skin Neurologic - Alert and oriented x 3. CN II-XII intact. strength- 5/5 throughout Ref lexes 2+ bilateral biceps, DIAGNOSTIC STUDIES: Available data and images were reviewed personally. Significant results and findings are a ddressed here or in the Assessment and Plan. Lab Results Component Value Date HGB 9.7 (L) 08/31/2020 HCT 30.2 (L) 08/31/2020 LABPLAT 328 08/01/2020 PLT 249 08/31/2020 WBC 9.83 08/31/2020 Lab Results Component Value Date NA 135 08/31/2020 K 4.3 08/31/2020 CL 99 08/31/2020 CO2 28 08/31/2020 CREA 3.20 (H) 08/31/2020 BUN 30 (H) 08/31/2020 MG 2.1 08/26/2020 PHOS 7.4 (H) 08/24/2020 CRP 2.8 (H) 11/08/2016 BNP 2,431.10 (H) 08/24/2020 Glucose, POC Date/Time Value Ref Range Status 08/05/2016 12:00 PM 259 (H) 70 - 150 mg/dL Final 08/04/2016 09:18 PM 182 (H) 70 - 150 mg/dL Final 08/04/2016 05:30 PM 174 (H) 70 - 150 mg/dL Final No results found. OSH labs 7.8 8.2>-------<79.4 23.4 136 |96 | 33 Mg-1.8 <182 4.0 | 33| 2.29 ABG 7.43/50.9/69 Trop- .165 EKG: Reviewed independently by me. The tracing shows NSR TWI in leads V3-V6, I, aVL ASSESSMENT and PLAN: Active Hospital Problems Diagnosis ACS (acute coronary syndrome) GI bleeding Resolved Hospital Problems No resolved problems to display. NSTEMI- Will transfuse prbc. hold plavix. No heparin due to ongoing bleeding. trend Tr oponins and monitor on telemetry. No imdur/b soo 2nd to GI bleeding and hypotension. Hemoptysis- SCC of tongue. - Pt has received one unit of prbc. Serial hgb. Pantoprazole gtt. SCC - outpt PET scan is scheduled. End Stage renal disease: We will consult nephrology for hemodialysis PVD- phantom leg pain- Oxycodone every 6 hours as long as blood pressure tolertes. Diabetes mellitus type 2: We will hold on Lantus and oral hypoglycemics. We will give slid ing scale insulin Gentle IV. Check electrolytes daily. Will keep patient n.p.o. DVT Prophylaxis SCD's Code Status Full Code CMS Documentation I certify that this admission will likely be greater than 2 midnights and posthospital disc harge will be to home Total of 74 minutes were required to complete the admission process. Electronically signed by: Pawel Mendieta MD 09/12/2020 1:43 AM PDT [facility] documented in this enc ounter Consult Notes Ron Orosco MD - 09/14/2020 12:11 PM PDT Hospital Day: 3 DATE/TIME: 09/14/2020 12:11 PM PDT Patient is concerned because he was mildly short of breath this morning. She denies doing quite well after dialysis yesterday. 3 L removed. CURRENT INFUSIONS dextrose 10% CURRENT MEDICATIONS albuterol-ipratropium 3 mL Nebulization RT TID atorvaSTATin 80 mg Oral Nightly calcitriol 0.25 mcg Oral Daily cyanocobalamin 1,000 mcg Oral Q14 Days ferric gluconate 125 mg Intravenous Nightly insulin lispro 0-12 Units Subcutaneous 4x Daily AC and HS isosorbide mononitrate 60 mg Oral Daily oxyCODONE 15 mg Oral Q6H pantoprazole 40 mg Intravenous Daily I personally reviewed the above medications. OBJECTIVE: Temp: 36.4 C (97.5 F) BP: 109/46 Pulse: 67 Resp: 15 SpO2: 98 % on Min/Max Temp past 24 hours:Temp Av.6 C (97.9 F) Min: 36.2 C (97.2 F) Max: 3 7 C (98.6 F) Intake/Output Summary (Last 24 hours) at 09/14/2020 1211 Last data filed at 09/14/2020 0807 Gross per 24 hour Intake 640 ml Output 989 ml Net -349 ml Wt. Admission: Weight: 78.4 kg (172 lb 13.5 oz) Wt. Current: Weight: 64.7 kg (142 lb 10 .2 oz) General: alert, appears stated age and cooperative Heart: Regular rate and rhythm or S1S2 present Lungs: clear Abdomen: abdomen is soft without significant tenderness, masses, organomegaly or guarding Recent Results (from the past 24 hour(s)) Troponin I Result Value Ref Range Troponin I 1.79 (HH) <0.06 ng/mL Hemoglobin and Hematocrit Result Value Ref Range Hematocrit 30.8 (L) 40.0 - 51.0 % Hemoglobin 10.0 (L) 13.5 - 18.0 g/dL POC Glucose Result Value Ref Range Glucose, POC 152 (H) 70 - 109 mg/dL POC Glucose Result Value Ref Range Glucose, POC 173 (H) 70 - 109 mg/dL Troponin I Result Value Ref Range Troponin I 1.62 (HH) <0.06 ng/mL Troponin I Result Value Ref Range Troponin I 1.42 (HH) <0.06 ng/mL CBC no Differential Result Value Ref Range White Blood Cells 7.3 4.0 - 11.0 K/uL Red Blood Cells 3.14 (L) 4.30 - 5.70 M/uL Hemoglobin 9.1 (L) 13.5 - 18.0 g/dL Hematocrit 29.1 (L) 40.0 - 51.0 % MCV 92.7 83.0 - 101.0 fL MCH 29.0 28.0 - 35.0 pg MCHC 31.3 (L) 32.0 - 36.0 g/dL RDW-CV 14.6 <15.0 % RDW-SD 49.5 (H) 35.1 - 46.3 fL Platelet Count 219 140 - 440 K/uL MPV 10.2 6.5 - 12.4 fL % nRBC 0 0 - 2 per 100 WBCs Absolute nRBC 0.00 0.00 - 0.01 K/uL Renal Function Panel Result Value Ref Range Na 136 136 - 145 mmol/L K 4.5 3.4 - 5.1 mmol/L Cl 102 98 - 107 mmol/L CO2 30 20 - 31 mmol/L Anion Gap 4 3 - 16 mmol/L Glucose 122 (H) 60 - 106 mg/dL BUN 33 (H) 9 - 23 mg/dL Creatinine 3.49 (H) 0.70 - 1.30 mg/dL eGFR, non- 17 (L) >=60 mL/min/1.73m2 eGFR, 21 (L) >=60 mL/min/1.73m2 Calcium 8.6 (L) 8.7 - 10.4 mg/dL Albumin 3.4 3.2 - 4.8 g/dL Phosphorus 3.5 2.4 - 5.1 mg/dL BUN/Creatinine Ratio 9.5 POC Glucose Result Value Ref Range Glucose, POC 119 (H) 70 - 109 mg/dL Troponin I Result Value Ref Range Troponin I 1.03 (HH) <0.06 ng/mL POC Glucose Result Value Ref Range Glucose, POC 132 (H) 70 - 109 mg/dL Recent Labs Lab 09/14/20 0916 09/14/20 0319 09/13/20 2050 09/13/20 1409 09/13/20 0750 TROPONIN 1.03* 1.42* 1.62* 1.79* 2.24* No results found. ASSESSMENT AND PLAN: 1. Coronary disease with recurrent episodes of ischemia. 2. Renal failure on dialysis Will proceed with heart catheterization today. Electronically Signed by: Ron Orosco MD [facility] 09/14/2020 12:11 PM PDT [facility] ee, Ron Rosenbaum MD - 12:10 PM PDT PATIENT NAME: Kavon Andujar : 1940: AGE: 80 y.o. ADMISSION DATE: 09/12/2020 HOSPITAL DAY NUMBER: [id number] PRIMARY CARE: Mehrdad Bergman REFERRING PROVIDER: CONSULTING PROVIDER: Ron Orosco MD CARDIOLOGY CONSULTATION DATE OF CONSULTATION: 09/14/20 REASON FOR CONSULT: Recurrent NSTEMI HISTORY OF PRESENT ILLNESS: Kavon Andujar is a 80 y.o. male who is admitted with recurrent episode of ischemia with elevated troponins and EKG changes. Initially this 22 anemia from bleeding from his to nsil cancer which is still not fully diagnosed. Patient does have an history of hospitalization August 20 for shortness LAD involvement by echo with regional motion abnormalities. Ejection fraction of 35 to 40%. He was treated medically because of the other medical issues including his renal dialysis. Imdur was incr eased during his hospitalization but his Plavix was initially stopped because of his hemopty sis. Today, patient underwent dialysis without any problems. He is feeling his breathing is imp roved. His troponins are trending down from 2.24 this morning to 1.79. His last hemoglobin was 10 with hematocrit 30 postdialysis. There is been no further episodes of chest pains. 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) Renal insufficiency Stroke (HCC) Stump pain (HCC) PAST SURGICAL HISTORY Past Surgical History: Procedure Laterality Date ABOVE KNEE AMPUTATION Left AMPUTATION Above knee amputation of Left Lower extremity AV FISTULA INSERTION Right 09/10/2019 Procedure: INSERTION AV FISTULA (Right BBF); Surgeon: Brian Orosco MD; [place] [facility] [place]STECT[place] COLONOSCOPY HIATAL HERNIA REPAIR LEG SURGERY x2 on stump of amputated leg OTHER SURGICAL HISTORY CATARACT EXTRACTION BILATERAL PANCREAS SURGERY tumor removal FAMILY HISTORY Family History Problem Relation Age of Onset Hypertension Mother Cancer Father Heart disease Father Hypertension Brother Sharifa hypertherm Neg Hx SOCIAL HISTORY Social History Socioeconomic History Marital status: Spouse name: Not on file Number of children: Not on file Years of education: Not on file Highest education level: Not on file Occupational History Not on file Social Needs Financial resource strain: Not on file Food insecurity Worry: Not on file Inability: Not on file Transportation needs Medical: Not on file Non-medical: Not on file Tobacco Use Smoking status: Current Every Day Smoker Packs/day: 0.25 Years: 59.00 Pack years: 14.75 Last attempt to quit: 09/27/2019 Years since quittin.9 Smokeless tobacco: Never Used Substance and Sexual Activity Alcohol use: No Drug use: Never Comment: Drug use: No Sexual activity: Not on file Lifestyle Physical activity Days per week: Not on file Minutes per session: Not on file Stress: Not on file Relationships Social connections Talks on phone: Not on file Gets together: Not on file Attends sabianism service: Not on file Active member of club or organization: Not on file Attends meetings of clubs or organizations: Not on file Relationship status: Not on file Intimate partner violence Fear of current or ex partner: Not on file Emotionally abused: Not on file Physically abused: Not on file Forced sexual activity: Not on file Other Topics Concern Not on file Social History Narrative Not on file MEDICATIONS: Current Facility-Administered Medications Medication Dose Route Frequency Provider Last Rate Last Dose albumin 25% IVPB 12.5 g 12.5 g Intravenous PRN Trinidad Barton MD albuterol 2.5 mg/3 mL nebulizer solution 2.5 mg 2.5 mg Nebulization Q6H PRN aPwel baron MD albuterol-ipratropium 2.5-0.5 mg/3 mL nebulizer solution 3 mL 3 mL Nebulization RT TID Pawel Mendieta MD 3 mL at 09/14/20 0839 atorvaSTATin (LIPITOR) tablet 80 mg 80 mg Oral Nightly Pawel Mendieta MD 80 mg at 2028 calcitriol (ROCALTROL) capsule 0.25 mcg 0.25 mcg Oral Daily Pawel Mendieta MD 0.25 m cg at 09/14/20 0833 cyanocobalamin (VITAMIN B-12) tablet 1,000 mcg 1,000 mcg Oral Q14 Days Pawel Mendieta MD 1,000 mcg at 09/12/20 1317 dextrose 50% injection 12.5-25 g 12.5-25 g Intravenous PRN Pawel Mendieta MD And dextrose 10% (D10W) infusion Intravenous Continuous PRN Pawel Mendieta MD docusate-senna (SENOKOT-S) 50-8.6 mg per tablet 2 tablet 2 tablet Oral Daily PRN Audelia Barton MD ferric gluconate (FERRLECIT) 125 mg in sodium chloride 0.9% 100 mL IVPB 125 mg Intrave nous Nightly Trinidad Barton MD 110 mL/hr at 09/13/200 125 mg at 09/13/20 2130 HYDROmorphone (DILAUDID) injection 0.2-0.4 mg 0.2-0.4 mg Intravenous Q2H PRN Trinidad Barton MD insulin lispro (humaLOG KWIKPEN, ADMELOG) injection (pen) 0-12 Units 0-12 Units Subcut aneous 4x Daily AC and HS Connie Chawla MD 2 Units at 09/13/20 1737 isosorbide mononitrate (IMDUR) ER tablet 60 mg 60 mg Oral Daily Connie walsh MD 60 mg at 09/14/20 0833 lidocaine (PF) 1% injection 1 mL 1 mL Intradermal Dialysis - PRN Trinidad Barton MD nitroglycerin (NITROSTAT) SL tablet 0.4 mg 0.4 mg Sublingual Q5 Min PRN Pawel Mendieta MD oxyCODONE (ROXICODONE) tablet 15 mg 15 mg Oral Q6H Pawel Mendieta MD 15 mg at 0622 pantoprazole (PROTONIX) injection 40 mg 40 mg Intravenous Daily Pawel Mendieta MD 40 mg at 09/14/20 0833 sodium chloride 0.9% flush 100 mL 100 mL Intracatheter Q30 Min PRN Rory Ferrara [facility] list of outpatient meds: Medications Prior to Admission Medication Sig Dispense Refill albuterol 2.5 mg/3 mL nebulizer solution Take 2.5 mg by nebulization every 6 hours as n eeded for Wheezing. albuterol-ipratropium (DUONEB) 2.5-0.5 mg/3 mL SOLN Take 3 mLs by nebulization Before b reakfast, dinner and bedtime. aluminum & magnesium hydroxide-simethicone (MAALOX PLUS DOUBLE STRENGTH) 400-400-40 mg/ 5 mL suspension Take 15 mLs by mouth every 4 hours as needed for Indigestion. aspirin 81 mg chewable tablet Take 81 mg by mouth Daily. atorvaSTATin (LIPITOR) 80 MG tablet Take 80 mg by mouth nightly. calcitriol (ROCALTROL) 0.25 mcg capsule Take 1 capsule by mouth Daily. 90 capsule 3 CHOLECALCIFEROL PO Take 1 tablet by mouth Daily. clopidogrel (PLAVIX) 75 mg tablet Take 75 mg by mouth Daily. cyanocobalamin (VITAMIN B-12) 1000 MCG tablet Take 1,000 mcg by mouth every 14 days. darbepoetin amarjit (ARANESP, ALBUMIN FREE,) 100 mcg/0.5 mL injection Inject 0.5 mLs under the skin Every 28 days. 0.5 mL 5 docusate-senna (SENOKOT-S) 50-8.6 mg per tablet Take 2 tablets by mouth Daily. doxepin (SINEQUAN) 10 mg capsule 50 mg. 0 ferrous sulfate 324 (65 Fe) MG EC tablet Take 65 mg of iron by mouth 4 times daily with meals. insulin aspart (NOVOLOG PENFILL) 100 units/mL injection [...] mg by nebulization 4 (four) times daily. isosorbide mononitrate (IMDUR) 30 mg ER tablet Take 1 tablet by mouth Daily. 30 tablet 0 LANTUS SOLOSTAR 100 UNIT/ML injection (pen) Inject 25 Units under the skin nightly. 0 LINZESS 145 MCG capsule 1 lisinopril (PRINIVIL,ZESTRIL) 2.5 MG tablet Take 1 tablet by mouth nightly. 30 tablet 0 Magnesium 65 MG TABS Take 1 tablet by mouth Daily. omeprazole (PRILOSEC) 20 mg capsule Take 20 mg by mouth Daily. ondansetron (ZOFRAN ODT) 8 mg disintegrating tablet 0 ONE TOUCH ULTRA TEST strip USE TO TEST BLOOD SUGAR five times a day 1 oxyCODONE (ROXICODONE) 15 mg immediate release tablet Take 15 mg by mouth every 4 hours . oxygen Inhale 4 L into the lungs as needed (If napping or having increased pain during the day). polyethylene glycol (MIRALAX) packet Take 17 g by mouth Daily. sodium bicarbonate 650 mg tablet take 1 tablet by mouth four times a day 1080 tablet 3 torsemide (DEMADEX) 20 mg tablet Take 2 tablets by mouth Daily. 180 tablet 3 TRELEGY ELLIPTA 100-62.5-25 MCG/INH inhaler inhale 1 puff by mouth once daily VENTOLIN HFA 108 (90 Base) MCG/ACT inhaler inhale 2 puffs by mouth every 4 hours if nee ded for shortness of breath 0 ALLERGIES Allergies Allergen Reactions Trazodone Hallucination REVIEW OF SYSTEMS General No weight change, fatigue Eyes No drainage or change in vision, ENT No pain, ear drainage or change in hearing Respiratory See present illness. Cardiovascular: See present illness GI No abdominal pain, no bloody stool, nausea, vomiting No painful urination. No previous renal failure Musculoskeletal No deformity or amputation. Neurological No history of stroke, seizure or neuromuscular disease Psychiatric No previous admissions for psyche issues Endocrine Diabetes: Type 2 Heme/onc No previous anemia or cancer. PHYSICAL EXAM Vital signs: Vitals: 09/14/20 1105 BP: 109/46 Pulse: 67 Resp: 15 Temp: 36.4 C (97.5 F) Admit Weight: Weight: 78.4 kg (172 lb 13.5 oz) Current weight: Weight: 64.7 kg (142 lb 10.2 oz) Body mass index is 21.69 kg/m. General appearance: Elderly gentleman. Earlier, he was bit argumentative but now is conver jamila and wants to talk about his medical condition. Chest: Decreased breath sounds Cardiovascular: No significant rubs or murmurs Gastrointestinal Abdomen: soft, non-tender, normal bowel sounds, no organomegaly nor masses. Mental Status/Neurological Grossly oriented. No obvious motor or cranial nerve deficits. Affect/Mood: appropriate. Extremities BKA Skin: Unremarkable LABS: Admission on 09/12/2020 Component Date Value Ref Range Status Na 09/12/2020 136 136 - 145 mmol/L Final K 09/12/2020 3.9 3.4 - 5.1 mmol/L Final Cl 09/12/2020 100 98 - 107 mmol/L Final CO2 09/12/2020 31 20 - 31 mmol/L Final Anion Gap 09/12/2020 5 3 - 16 mmol/L Final Glucose 09/12/2020 138* 60 - 106 mg/dL Final BUN 09/12/2020 19 9 - 23 mg/dL Final Creatinine 09/12/2020 2.75* 0.70 - 1.30 mg/dL Final eGFR, non- 09/12/2020 22* >=60 mL/min/1.73m2 Final GLOMERULAR FILTRATION RATE,ESTIMATED mL/min/1.73m2 Less than 60 Chronic kidney disease,if found over a 3-month period. Less than 15 Kidney failure eGFR, 09/12/2020 27* >=60 mL/min/1.73m2 Final GLOMERULAR FILTRATION RATE,ESTIMATED mL/min/1.73m2 Less than 60 Chronic kidney disease,if found over a 3-month period. Less than 15 Kidney failure Calcium 09/12/2020 8.5* 8.7 - 10.4 mg/dL Final BUN/Creatinine Ratio 09/12/2020 6.9 Final White Blood Cells 09/12/2020 7.3 4.0 - 11.0 K/uL Final Red Blood Cells 09/12/2020 2.96* 4.30 - 5.70 M/uL Final Hemoglobin 09/12/2020 8.5* 13.5 - 18.0 g/dL Final Hematocrit 09/12/2020 26.8* 40.0 - 51.0 % Final MCV 09/12/2020 90.5 83.0 - 101.0 fL Final MCH 09/12/2020 28.7 28.0 - 35.0 pg Final MCHC 09/12/2020 31.7* 32.0 - 36.0 g/dL Final RDW-CV 09/12/2020 14.3 <15.0 % Final RDW-SD 09/12/2020 47.0* 35.1 - 46.3 fL Final Platelet Count 09/12/2020 233 140 - 440 K/uL Final MPV 09/12/2020 10.3 6.5 - 12.4 fL Final % nRBC 09/12/2020 0 0 - 2 per 100 WBCs Final Absolute nRBC 09/12/2020 0.00 0.00 - 0.01 K/uL Final Magnesium 09/12/2020 2.0 1.6 - 2.6 mg/dL Final Troponin I 09/12/2020 0.48* <0.06 ng/mL Final Comment: Reference Ranges: 0.00-0.06 = NORMAL >0.06 = SUSPICIOUS FOR MYOCARDIAL DAMAGE NOTE: Values greater than 0.78 ng/mL have been shown to be strongly associated with acute m yocardial infarction. The [employer] [employer] (ACC) recommends a decision limit of 0.06 ng/mL for this assay. Results greater than 0.06 can reflect a pre-infarct acute coronary syndrome, but c an also reflect myocardial necrosis or injury that is not due to coronary artery disease. Some of these causes aresepsis, hypocolemia, atrial fibrillation, heart failure, pulmonary embolism, myocarditis, myocardial contusion, and renal failure. The diagnosis of myocardi al infarction should be based on a combination of the patient's clinical presentation and th e clinical laboratory test results (especially serial troponin levels). Troponin I 09/12/2020 0.93* <0.06 ng/mL Final Comment: Reference Ranges: 0.00-0.06 = NORMAL >0.06 = SUSPICIOUS FOR MYOCARDIAL DAMAGE NOTE: Values greater than 0.78 ng/mL have been shown to be strongly associated with acute m yocardial infarction. The [employer] [employer] (ACC) recommends a decision limit of 0.06 ng/mL for this assay. Results greater than 0.06 can reflect a pre-infarct acute coronary syndrome, but c an also reflect myocardial necrosis or injury that is not due to coronary artery disease. Some of these causes aresepsis, hypocolemia, atrial fibrillation, heart failure, pulmonary embolism, myocarditis, myocardial contusion, and renal failure. The diagnosis of myocardi al infarction should be based on a combination of the patient's clinical presentation and th e clinical laboratory test results (especially serial troponin levels). Critical Result called to and read back by Christie Rodriguez RN on 09/12/2020 at 9:23 AM PDT by Tristen Dutton. Troponin I 09/12/2020 1.98* <0.06 ng/mL Final Comment: Reference Ranges: 0.00-0.06 = NORMAL >0.06 = SUSPICIOUS FOR MYOCARDIAL DAMAGE NOTE: Values greater than 0.78 ng/mL have been shown to be strongly associated with acute m yocardial infarction. The [place] [employer] (ACC) recommends a decision limit of 0.06 ng/mL for this assay. Results greater than 0.06 can reflect a pre-infarct acute coronary syndrome, but c an also reflect myocardial necrosis or injury that is not due to coronary artery disease. Some of these causes aresepsis, hypocolemia, atrial fibrillation, heart failure, pulmonary embolism, myocarditis, myocardial contusion, and renal failure. The diagnosis of myocardi al infarction should be based on a combination of the patient's clinical presentation and th e clinical laboratory test results (especially serial troponin levels). Critical Result called to and read back by Christie Rodriguez RN on 09/12/2020 at 4:10 PM PDT by Andrez Crowe. Troponin I 09/12/2020 2.53* <0.06 ng/mL Final Comment: Reference Ranges: 0.00-0.06 = NORMAL >0.06 = SUSPICIOUS FOR MYOCARDIAL DAMAGE NOTE: Values greater than 0.78 ng/mL have been shown to be strongly associated with acute m yocardial infarction. The [place] [employer] (ACC) recommends a decision limit of 0.06 ng/mL for this assay. Results greater than 0.06 can reflect a pre-infarct acute coronary syndrome, but c an also reflect myocardial necrosis or injury that is not due to coronary artery disease. Some of these causes aresepsis, hypocolemia, atrial fibrillation, heart failure, pulmonary embolism, myocarditis, myocardial contusion, and renal failure. The diagnosis of myocardi al infarction should be based on a combination of the patient's clinical presentation and th e clinical laboratory test results (especially serial troponin levels). Critical Result called to and read back by Lauryn Villareal RN on 09/12/2020 at 9:17 PM PDT by Andrez Crowe. SARS-CoV-2, NAAT (COVID-19) 09/12/2020 Not Detected Not Detected Final Comment: A Negative test result does not preclude COVID-19 infection and should not be use d as the sole basis for treatment or other patient management decisions. Consider early rete sting of negative patients with clinical features suspicious for COVID-19 infection. This assay has been cleared for use under an FDA Emergency Use Authorization. This test is used for clinical purposes. It should not be regarded as investigational or for research. [facility] laboratory is certified under the Clinical Laboratory Improvement Amendments (CLIA) as qu alified to perform high complexity testing. This test has been validated in accordance with the FDA's Guidance Document "Policy for [employer] [employer] Testing in Laboratories Certified to Perform High Complexity Testing under CLIA marisol or to Emergency Use Authorization for Coronavirus Disease-2019 during the Public Health [place] gency" issued on January 29, 2020. FDA independent review of this validation is pending. This test is only authorized for the duration of time the declaration that circumstances exist justifying the author ization of the emergency use of in vitro diagnostic tests for detection of SARS-CoV-2 virus and/or diagnosis of COVID-19 infection under section 564(b)(1) of the Act, 21 U.S.C. 360bbb- 3(b)(1), unless the authorization is terminated or revoked sooner. VENTRICULAR RATE EKG 09/12/2020 81 BPM Final ATRIAL RATE 09/12/2020 81 BPM Final P-R INTERVAL 09/12/2020 194 ms Final QRS DURATION 09/12/2020 98 ms Final Q-T INTERVAL 09/12/2020 438 ms Final Q-T INTERVAL (CORRECTED) 09/12/2020 508 ms Final P WAVE AXIS 09/12/2020 24 degrees Final QRS AXIS 09/12/2020 22 degrees Final T AXIS 09/12/2020 53 degrees Final INTERPRETATION TEXT 09/12/2020 Final Value:Normal sinus rhythm ST & T wave abnormality, consider anterolateral ischemia Long QTc Abnormal ECG When compared with ECG of 03-AUG-2016 22:45, ST now depressed in Lateral leads T wave inversion now evident in Anterolateral leads QTc has lengthened Confirmed by AYAH RON MD ([id number]) on 09/12/2020 7:14:13 AM ABO 09/12/2020 B Final Rh Type 09/12/2020 Negative Final Antibody Screen 09/12/2020 Negative Final Culture 09/12/2020 Negative for MRSA by chromogenic agar method. Final Product Code 09/12/2020 [id number] Final UNIT # 09/12/2020 [id number] Final UNIT ABO 09/12/2020 B Final UNIT RH 09/12/2020 NEG Final CROSSMATCH INTERP 09/12/2020 Compatible Final Unit Status 09/12/2020 Issued Final Blood Product Expiration Date and * 09/12/[id number] Final Product Blood Type Barcode 09/12/2020 1700 Final Product Code 09/12/2020 [id number] Final UNIT # 09/12/2020 [id number] Final UNIT ABO 09/12/2020 B Final UNIT RH 09/12/2020 NEG Final CROSSMATCH INTERP 09/12/2020 Compatible Final Unit Status 09/12/2020 Crossmatched Final Blood Product Expiration Date and * 09/12/[id number] Final Product Blood Type Barcode 09/12/2020 1700 Final Hematocrit 09/12/2020 26.7* 40.0 - 51.0 % Final Hemoglobin 09/12/2020 8.7* 13.5 - 18.0 g/dL Final Troponin I 09/13/2020 3.25* <0.06 ng/mL Final Comment: Reference Ranges: 0.00-0.06 = NORMAL >0.06 = SUSPICIOUS FOR MYOCARDIAL DAMAGE NOTE: Values greater than 0.78 ng/mL have been shown to be strongly associated with acute m yocardial infarction. The [place] [employer] (ACC) recommends a decision limit of 0.06 ng/mL for this assay. Results greater than 0.06 can reflect a pre-infarct acute coronary syndrome, but c an also reflect myocardial necrosis or injury that is not due to coronary artery disease. Some of these causes aresepsis, hypocolemia, atrial fibrillation, heart failure, pulmonary embolism, myocarditis, myocardial contusion, and renal failure. The diagnosis of myocardi al infarction should be based on a combination of the patient's clinical presentation and th e clinical laboratory test results (especially serial troponin levels). Critical Result called to and read back by Lauryn Villareal RN on 09/13/2020 at 3:36 AM PDT by Khalif Ortiz. White Blood Cells 09/13/2020 7.1 4.0 - 11.0 K/uL Final Red Blood Cells 09/13/2020 3.06* 4.30 - 5.70 M/uL Final Hemoglobin 09/13/2020 8.8* 13.5 - 18.0 g/dL Final Hematocrit 09/13/2020 27.4* 40.0 - 51.0 % Final MCV 09/13/2020 89.5 83.0 - 101.0 fL Final MCH 09/13/2020 28.8 28.0 - 35.0 pg Final MCHC 09/13/2020 32.1 32.0 - 36.0 g/dL Final RDW-CV 09/13/2020 15.1* <15.0 % Final RDW-SD 09/13/2020 48.5* 35.1 - 46.3 fL Final Platelet Count 09/13/2020 212 140 - 440 K/uL Final MPV 09/13/2020 10.1 6.5 - 12.4 fL Final % nRBC 09/13/2020 0 0 - 2 per 100 WBCs Final Absolute nRBC 09/13/2020 0.00 0.00 - 0.01 K/uL Final FERRITIN 09/13/2020 420* 11 - 307 ng/mL Final Iron 09/13/2020 31* 65 - 175 ug/dL Final TRANSFERRIN 09/13/2020 162.0* 215.0 - 365.0 mg/dL Final TIBC 09/13/2020 227* 235 - 425 ug/dL Final % SATURATION 09/13/2020 13.7* 20.0 - 55.0 % Final Na 09/13/2020 135* 136 - 145 mmol/L Final K 09/13/2020 4.6 3.4 - 5.1 mmol/L Final Cl 09/13/2020 100 98 - 107 mmol/L Final CO2 09/13/2020 32* 20 - 31 mmol/L Final Anion Gap 09/13/2020 3 3 - 16 mmol/L Final Glucose 09/13/2020 118* 60 - 106 mg/dL Final BUN 09/13/2020 28* 9 - 23 mg/dL Final Creatinine 09/13/2020 3.71* 0.70 - 1.30 mg/dL Final eGFR, non- 09/13/2020 16* >=60 mL/min/1.73m2 Final GLOMERULAR FILTRATION RATE,ESTIMATED mL/min/1.73m2 Less than 60 Chronic kidney disease,if found over a 3-month period. Less than 15 Kidney failure eGFR, 09/13/2020 19* >=60 mL/min/1.73m2 Final GLOMERULAR FILTRATION RATE,ESTIMATED mL/min/1.73m2 Less than 60 Chronic kidney disease,if found over a 3-month period. Less than 15 Kidney failure Calcium 09/13/2020 8.6* 8.7 - 10.4 mg/dL Final Albumin 09/13/2020 3.4 3.2 - 4.8 g/dL Final Phosphorus 09/13/2020 4.6 2.4 - 5.1 mg/dL Final BUN/Creatinine Ratio 09/13/2020 7.5 Final BNP 09/13/2020 2,775* <100 pg/mL Final New method in use as of January 27, 2019. Check reference range for changes. Some analytes show significant variation from the previous method. It may be necessary to set a new baseline for this analyte. Troponin I 09/13/2020 2.24* <0.06 ng/mL Final Comment: Reference Ranges: 0.00-0.06 = NORMAL >0.06 = SUSPICIOUS FOR MYOCARDIAL DAMAGE NOTE: Values greater than 0.78 ng/mL have been shown to be strongly associated with acute m yocardial infarction. The [place] [employer] (ACC) recommends a decision limit of 0.06 ng/mL for this assay. Results greater than 0.06 can reflect a pre-infarct acute coronary syndrome, but c an also reflect myocardial necrosis or injury that is not due to coronary artery disease. Some of these causes aresepsis, hypocolemia, atrial fibrillation, heart failure, pulmonary embolism, myocarditis, myocardial contusion, and renal failure. The diagnosis of myocardi al infarction should be based on a combination of the patient's clinical presentation and th e clinical laboratory test results (especially serial troponin levels). Consistent with previous results. Troponin I 09/13/2020 1.79* <0.06 ng/mL Final Comment: Reference Ranges: 0.00-0.06 = NORMAL >0.06 = SUSPICIOUS FOR MYOCARDIAL DAMAGE NOTE: Values greater than 0.78 ng/mL have been shown to be strongly associated with acute m yocardial infarction. The [place] [employer] (ACC) recommends a decision limit of 0.06 ng/mL for this assay. Results greater than 0.06 can reflect a pre-infarct acute coronary syndrome, but c an also reflect myocardial necrosis or injury that is not due to coronary artery disease. Some of these causes aresepsis, hypocolemia, atrial fibrillation, heart failure, pulmonary embolism, myocarditis, myocardial contusion, and renal failure. The diagnosis of myocardi al infarction should be based on a combination of the patient's clinical presentation and th e clinical laboratory test results (especially serial troponin levels). Consistent with previous results. Troponin I 09/13/2020 1.62* <0.06 ng/mL Final Comment: Reference Ranges: 0.00-0.06 = NORMAL >0.06 = SUSPICIOUS FOR MYOCARDIAL DAMAGE NOTE: Values greater than 0.78 ng/mL have been shown to be strongly associated with acute m yocardial infarction. The [employer] (ACC) recommends a decision limit of 0.06 ng/mL for this assay. Results greater than 0.06 can reflect a pre-infarct acute coronary syndrome, but c an also reflect myocardial necrosis or injury that is not due to coronary artery disease. Some of these causes aresepsis, hypocolemia, atrial fibrillation, heart failure, pulmonary embolism, myocarditis, myocardial contusion, and renal failure. The diagnosis of myocardi al infarction should be based on a combination of the patient's clinical presentation and e clinical laboratory test results (especially serial troponin levels). Consistent with previous results. Glucose, POC 09/13/2020 119* 70 - 109 mg/dL Final VENTRICULAR RATE EKG 09/13/2020 78 BPM Final ATRIAL RATE 09/13/2020 78 BPM Final P-R INTERVAL 09/13/2020 176 ms Final QRS DURATION 09/13/2020 94 ms Final Q-T INTERVAL 09/13/2020 434 ms Final Q-T INTERVAL (CORRECTED) 09/13/2020 494 ms Final P WAVE AXIS 09/13/2020 44 degrees Final QRS AXIS 09/13/2020 19 degrees Final T AXIS 09/13/2020 115 degrees Final INTERPRETATION TEXT 09/13/2020 Final Value:Normal sinus rhythm Low voltage QRS ST & T wave abnormality, consider anterior ischemia Long QTc Abnormal ECG When compared with ECG of 12-SEP-2020 02:50, T wave inversion in Lateral leads is no longer present Confirmed by ARIADNE WATKINS, AYAH ([id number]) on 09/13/2020 5:07:53 PM Glucose, POC 09/13/2020 117* 70 - 109 mg/dL Final Glucose, POC 09/13/2020 105 70 - 109 mg/dL Final Hematocrit 09/13/2020 30.8* 40.0 - 51.0 % Final Hemoglobin 09/13/2020 10.0* 13.5 - 18.0 g/dL Final Glucose, POC 09/13/2020 152* 70 - 109 mg/dL Final Troponin I 09/14/2020 1.42* <0.06 ng/mL Final Comment: Reference Ranges: 0.00-0.06 = NORMAL >0.06 = SUSPICIOUS FOR MYOCARDIAL DAMAGE NOTE: Values greater than 0.78 ng/mL have been shown to be strongly associated with acute m yocardial infarction. The [place] [employer] (ACC) recommends a decision limit of 0.06 ng/mL for this assay. Results greater than 0.06 can reflect a pre-infarct acute coronary syndrome, but c an also reflect myocardial necrosis or injury that is not due to coronary artery disease. Some of these causes aresepsis, hypocolemia, atrial fibrillation, heart failure, pulmonary embolism, myocarditis, myocardial contusion, and renal failure. The diagnosis of myocardi al infarction should be based on a combination of the patient's clinical presentation and th e clinical laboratory test results (especially serial troponin levels). Critical Result called to and read back by Niya Daley RN on 09/14/2020 at 4:12 AM MISSAEL Wyatt. White Blood Cells 09/14/2020 7.3 4.0 - 11.0 K/uL Final Red Blood Cells 09/14/2020 3.14* 4.30 - 5.70 M/uL Final Hemoglobin 09/14/2020 9.1* 13.5 - 18.0 g/dL Final Hematocrit 09/14/2020 29.1* 40.0 - 51.0 % Final MCV 09/14/2020 92.7 83.0 - 101.0 fL Final MCH 09/14/2020 29.0 28.0 - 35.0 pg Final MCHC 09/14/2020 31.3* 32.0 - 36.0 g/dL Final RDW-CV 09/14/2020 14.6 <15.0 % Final RDW-SD 09/14/2020 49.5* 35.1 - 46.3 fL Final Platelet Count 09/14/2020 219 140 - 440 K/uL Final MPV 09/14/2020 10.2 6.5 - 12.4 fL Final % nRBC 09/14/2020 0 0 - 2 per 100 WBCs Final Absolute nRBC 09/14/2020 0.00 0.00 - 0.01 K/uL Final Na 09/14/2020 136 136 - 145 mmol/L Final K 09/14/2020 4.5 3.4 - 5.1 mmol/L Final Cl 09/14/2020 102 98 - 107 mmol/L Final CO2 09/14/2020 30 20 - 31 mmol/L Final Anion Gap 09/14/2020 4 3 - 16 mmol/L Final Glucose 09/14/2020 122* 60 - 106 mg/dL Final BUN 09/14/2020 33* 9 - 23 mg/dL Final Creatinine 09/14/2020 3.49* 0.70 - 1.30 mg/dL Final eGFR, non- 09/14/2020 17* >=60 mL/min/1.73m2 Final GLOMERULAR FILTRATION RATE,ESTIMATED mL/min/1.73m2 Less than 60 Chronic kidney disease,if found over a 3-month period. Less than 15 Kidney failure eGFR, 09/14/2020 21* >=60 mL/min/1.73m2 Final GLOMERULAR FILTRATION RATE,ESTIMATED mL/min/1.73m2 Less than 60 Chronic kidney disease,if found over a 3-month period. Less than 15 Kidney failure Calcium 09/14/2020 8.6* 8.7 - 10.4 mg/dL Final Albumin 09/14/2020 3.4 3.2 - 4.8 g/dL Final Phosphorus 09/14/2020 3.5 2.4 - 5.1 mg/dL Final BUN/Creatinine Ratio 09/14/2020 9.5 Final Glucose, POC 09/13/2020 173* 70 - 109 mg/dL Final Glucose, POC 09/14/2020 119* 70 - 109 mg/dL Final Troponin I 09/14/2020 1.03* <0.06 ng/mL Final Comment: Reference Ranges: 0.00-0.06 = NORMAL >0.06 = SUSPICIOUS FOR MYOCARDIAL DAMAGE NOTE: Values greater than 0.78 ng/mL have been shown to be strongly associated with acute m yocardial infarction. The [place] [employer] (ACC) recommends a decision limit of 0.06 ng/mL for this assay. Results greater than 0.06 can reflect a pre-infarct acute coronary syndrome, but c an also reflect myocardial necrosis or injury that is not due to coronary artery disease. Some of these causes aresepsis, hypocolemia, atrial fibrillation, heart failure, pulmonary embolism, myocarditis, myocardial contusion, and renal failure. The diagnosis of myocardi al infarction should be based on a combination of the patient's clinical presentation and th e clinical laboratory test results (especially serial troponin levels). Consistent with previous results. Glucose, POC 09/14/2020 132* 70 - 109 mg/dL Final Recent Labs Lab 09/14/20 0916 09/14/20 0319 09/13/20 2050 09/13/20 1409 09/13/20 0750 TROPONIN 1.03* 1.42* 1.62* 1.79* 2.24* IMAGING: Us Renal Limited Result Date: 08/25/2020 ULTRASOUND KIDNEYS AND BLADDER CLINICAL INFORMATION: End stage renal disease COMPARISON: [facility] HEMODIALYSIS GRAFT FISTULA (10/20/2019); PROCEDURE: Evaluation of the kidneys and urinary bladder. FINDINGS: Right kidney: 12.8 cm. Multiple renal cysts on the right. The cortical e chogenicity is markedly increased there is cortical thinning suggesting chronic kidney disea se. The largest cyst measures 2.2 x 1.2 x 1.6 cm. Left kidney: 12.5 cm. Increased echogenic ity of the renal cortex with cortical thinning suggesting medical renal disease. Multiple c ysts are seen the largest measures 2.6 x 1.7 x 1.8 cm. Bladder: Decompressed by Moss cathet er. Incidental note is made of right pleural effusion. 1. Cortical thinning and increased echogenicity suggesting medical renal disease. 2. Multip le bilateral renal cysts. Final Report Signed by: Idris Valdez, Thaddeus Sign Date/Time: 7:50 AM Xr Chest Ap Portable Result Date: 08/24/2020 CHEST PORTABLE ONE VIEW CLINICAL INFORMATION: Shortness of breath. COMPARISON: ECHO OUTSIDE INTERPRETATION (03/26/2016); XR CHEST PA AND LATERAL (06/24/2013); XR CHEST AP PORTABLE (11/01); FINDINGS: Lung volumes are adequate. Bilateral mixed interstitial and ground-glass opacities, right greater than left. Modest right pleural effusion.. No pneumothorax. Card iomediastinal silhouette unremarkable. Pulmonary vascularity within normal limits. No acut e osseous abnormality. Mixed interstitial and ground-glass opacities seen bilaterally, right greater than left, wi th a right-sided effusion. This may reflect pulmonary edema, though atypical or viral infec tion could appear similar. Final Report Signed by: Idris Gutierrez James Sign Date/Time: 2019 11:[address] Angiogram Pulmonary W Contrast Result Date: 08/29/2020 CT ANGIOGRAM PULMONARY CLINICAL INFORMATION: PE suspected, intermediate prob, positive D-di rhina COMPARISON: XR CHEST AP PORTABLE (08/24/2020); ECHO OUTSIDE INTERPRETATION (03/26/2016); X R CHEST PA AND LATERAL (06/24/2013); PROCEDURE: Thin-section images of the entire chest after the administration of 65 ml Omnipaque 350 intravenous contrast. 3D MIP thin slab images and 2D multiplanar reconstructions performed. At least one of the following CT dose optimizatio n techniques were used: Automated exposure control; Adjustment of mA and/or kV according to patient size; Use of iterative reconstruction technique. FINDINGS: PULMONARY ARTERIES: No pu lmonary embolism. RIGHT VENTRICLE TO LEFT VENTRICLE RATIO: Not applicable. (Maximum short ax is diameter on axial image. Applicable only when pulmonary embolism present. Abnormal greate r than or equal to 0.9.) CHEST Lungs, Pleura and Airways: There is mild bilateral pulmonary edema. Moderate bilateral pleural effusions and bibasilar atelectasis. No airway narrowing or obstruction. Mediastinum: No significant pericardial, great vessel or esophageal abnormal ity. No mediastinal mass. Lymph Nodes: There is an enlarged high paratracheal node measuring 1.3 cm transverse (series 5, image 53) Upper Abdomen: There is a 2.6 x 2.9 cm low-attenuati on lesion in the liver patient is status post cholecystectomy. There is atherosclerotic kyrie cification of the abdominal aorta and its visualized branch vessels. BODY WALL Soft Tissues: The soft tissues of the chest wall are unremarkable. Bones: No acute fracture or vertebral end plate destruction. No lytic or blastic lesion. 1. No pulmonary embolism. 2. Mild bilateral pulmonary edema. 3. Moderate bilateral pulmo nary effusions associated bibasilar atelectasis. 4. Single enlarged paratracheal lymph node , likely reactive. Attention on follow-up examinations. 5. 2.6 x 2.9 cm low-attenuation les ion in the liver of unknown chronicity common is low-attenuation likely a cyst or hemangioma , could be further evaluated with ultrasound or multiphase cross-sectional imaging if clinic ally indicated. 6. Status post cholecystectomy. Final Report Signed by: Idris Diaz, Ricardo mark Sign Date/Time: 08/29/2020 1:54 PM Xr Chest 1 Vw Result Date: 09/12/2020 External films for comparison only No results will be in the chart. Xr Abd Supine And Upright W 1 Vw Chest Result Date: 08/27/2020 PA CHEST AND SUPINE AND UPRIGHT ABDOMEN CLINICAL INFORMATION: Abdominal pain. COMPARISON: U S RENAL LIMITED (08/25/2020); CT PELVIS WO CONTRAST (08/04/2016); XR CHEST AP PORTABLE (08/25/20); FINDINGS: Chest Findings: Similar appearance of mixed interstitial and ground-glass opa cities within the right greater than left lungs and moderate right pleural effusion. No pne umothorax. Mediastinal and cardiac contours appear unchanged. No acute osseous abnormality . No intraperitoneal free air. Abdomen Findings: Surgical clips are present within the righ t upper quadrant of the abdomen, likely from prior cholecystectomy. A nonobstructive bowel gas pattern is present. No evidence of pneumoperitoneum. Diffuse atherosclerotic calcifica tion of the abdominal aorta and iliac arteries. A catheter projects over the bladder, likel y within the bladder. No acute osseous abnormality. Multilevel degenerative changes of the lumbar spine. Left greater than right hip osteoarthritis. 1. Similar appearance of the mixed interstitial and ground-glass opacities of the right gre ater than left lungs and moderate right pleural effusion. 2. Nonobstructive bowel gas patter n. 3. No evidence of pneumoperitoneum. Final Report Signed by: Idris Garcia Elizabeth Sign Date/Time: 08/27/2020 2:02 PM ECG: EKGs are personally reviewed. There are ST-T changes consistent with continued anteri or ischemia. There is resolution serially of lateral changes. Echo: Technically difficult study with poor acoustic windows. Left ventricle appears mildly dilated with moderately impaired systolic function EF 35 to 4 0%. Akinetic anterior, anteroseptal, septal, inferoseptal, and apical segments. Right ventricle appears moderately dilated with impaired systolic function. No pericardial effusion. DIAGNOSES AND ASSESSMENTS: 1. NSTEMI 2. Congestive heart failure 3. CKD PLAN OR RECOMMENDATIONS: Progressive increase in diuresis. Follow-up for clinical ischemia. Patient will see co ider heart catheterization when able and comfortable stabilize (heart failure as well as r enal status. I appreciate the opportunity of participating in the care of this patient. Ron Orosco MD, [facility], 09/14/2020 12:10 PM PDT each, Trinidad Triplett MD - 09/12/2020 12:21 PM PDT [facility] NEPHROLOGY CONSULTATION Patient: Kavon Andujar : 1940 DATE OF CONSULTATION: 09/12/2020 REASON FOR CONSULTATION: End-stage renal disease on hemodialysis REFERRING PHYSICIAN: Pawel Mendieta MD PRIMARY CARE PHYSICIAN: Mehrdad Bergman ASSESMENT AND PLAN 1. End-stage renal disease, on hemodialysis. ESRD due to DM, HTN. History of ZEKE requiring dialysis in 2016. Pt dialyzes in [facility], on MWF, via right upper arm AV fistula. 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 Pt dialyzed at outpatient clinic yesterday. Electrolytes are stable. No urgent HD required today. -Plan for HD tomorrow. 2. NSTEMI. H/o ACS with NSTEMI in Aug 2020. Troponin peaked to 8.0. No cardiac catheterization was completed due to active bleeding from right tonsillar cancer. Treated medically. Discharge d on ASA, Plavix, lisinopril 2.5 mg daily, Imdur 30 mg daily, atorvastatin 80 mg daily. Pt is presenting with chest pain, +troponin, EKG w/ TWI in lateral leads. -Will defer to hospitalist team for management of ACS. Recommend restarting ASA and Plavix if no signs of bleeding. -Will add back Imdur 30 mg daily, given chest pain and elevated BP. -Will d/c LR to avoid precipitating hyperkalemia. 3. Acute respiratory distress with hypoxia. COPD with chronic hypercapnia. Outside ABG per H&P. -Treating with BIPAP and nebulizers. -Recommend CXR to evaluate for CHF. 4. Anemia, unspecified. S/p 1 Unit of PRBC yesterday. Hb 7.8 g/dL prior to transfusion. H/o upper airway bleeding from right tonsillar cancer. -Consider d/c PPI gtt, no h/o upper GI bleeding. -Will check iron stores. -On WALESKA as outpatient -- will acquire outpatient dose, and resume if appropriate. 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 Lesion biopsied last month, and diagnosed with SCC of right tonsil. Pt was scheduled for PET scan for Dr. Romo (Oncology) tomorrow. -Monitor for bleeding. -Will need to reschedule PET scan. HPI Kavon Andujar is a 80 y.o. male with ESRD on HD, COPD, PAOLO, CAD h/o NSTEMI in Aug 2020, admitted with chest pain and shortness of breath. Pt was admitted to [facility] from 08/25/2020 to 09/01/2020 with acute respiratory failure with h ypoxia, NSTEMI, right tonsillar squamous cell carcinoma. Pt last dialyzed at [facility] yesterday, 09/11/2020. Pt reports he developed chest pain and increased shortness of breath. Pt reports he wanted to be admitted to [facility], and is very upset that he is here in [place]. Pt reports he continues to have a left-sided chest pain. Pt is on BIPAP, which makes obtaining history ch allenging. Pt denies abdominal pain, diarrhea. Pt reports he occasionally coughs up blood, which he attributes to his tonsillar cancer. Reviewed discharge summary from [facility] from 09/01/2020. Reviewed office note from Dr. Acuna from 08/09/2020. 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) Renal insufficiency Stroke (HCC) Stump pain (HCC) SURGICAL HISTORY Past Surgical History: Procedure Laterality Date ABOVE KNEE AMPUTATION Left AMPUTATION Above knee amputation of Left Lower extremity AV FISTULA INSERTION Right 09/10/2019 Procedure: INSERTION AV FISTULA (Right BBF); Surgeon: Brian Orosco MD; [place] [facility] [place]LE[place]STECT[place] COLONOSCOPY HIATAL HERNIA REPAIR LEG SURGERY x2 on stump of amputated leg OTHER SURGICAL HISTORY CATARACT EXTRACTION BILATERAL PANCREAS SURGERY tumor removal FAMILY HISTORY Family History Problem Relation Age of Onset Hypertension Mother Cancer Father Heart disease Father Hypertension Brother Sharifa degroot Neg Hx SOCIAL HISTORY Social History Socioeconomic History Marital status: Spouse name: Not on file Number of children: Not on file Years of education: Not on file Highest education level: Not on file Occupational History Not on file Social Needs Financial resource strain: Not on file Food insecurity Worry: Not on file Inability: Not on file Transportation needs Medical: Not on file Non-medical: Not on file Tobacco Use Smoking status: Current Every Day Smoker Packs/day: 0.25 Years: 59.00 Pack years: 14.75 Last attempt to quit: 09/27/2019 Years since quittin.9 Smokeless tobacco: Never Used Substance and Sexual Activity Alcohol use: No Drug use: Never Comment: Drug use: No Social History Narrative Lives with daughter, Charlotte, in [place], [place]. ALLERGIES Allergies Allergen Reactions Trazodone Hallucination CURRENT MEDICATIONS Scheduled Meds: albuterol-ipratropium 3 mL Nebulization RT TID atorvaSTATin 80 mg Oral Nightly calcitriol 0.25 mcg Oral Daily cyanocobalamin 1,000 mcg Oral Q14 Days docusate-senna 2 tablet Oral Daily ferrous sulfate 325 mg Oral Daily with breakfast insulin lispro 0-12 Units Subcutaneous Q6H oxyCODONE 15 mg Oral Q6H pantoprazole 40 mg Intravenous Daily Continuous Infusions: dextrose 10% lactated ringers 50 mL/hr at 09/12/20 0403 pantoprazole 8 mg/hr (09/12/20 0358) PRN Meds:albuterol, Hypoglycemia Management AND POCT Glucose AND dextrose AND dextrose 10% OBJECTIVE VITAL SIGNS: Vital sign ranges for last 24hrs: Input and output for last 24hrs: Temp: [35.9 C (96.6 F)-36.9 C (98.4 F)] 36.9 C (98.4 F) Pulse: [77-92] 90 Resp: [10-25] 22 BP: (90-145)/(48-73) 139/68 SpO2 Av % Min: 85 % Max: 100 % Flow (L/min) Av.7 Min: 4 Max: 6 First: 78.4 kg (09/12/20304)Last: 78.4 kg (09/12/20304)Difference: 0kg 09/11 701 - 699 In: 319.3 [I.V.:180.3] Out: 0 General: In mild distress HEENT: BIPAP mask on Cardiac: Regular rate and rhythm, normal S1 and S2. Minimal RLE peripheral edema. Chest: Increased work of breathing. Decreased breath sounds throughout. Abdomen: Soft, non-distended, non-tender, normal bowel sounds. Msk: Left AKA. Skin: No rash. Neuro: Alert, interactive. Access: Right upper arm AV fistula +b/t. LABORATORY DATA: Recent Results (from the past 24 hour(s)) Coronavirus (COVID-19) NAAT Specimen: Nasopharynx; Tissue Result Value Ref Range SARS-CoV-2, NAAT (COVID-19) Not Detected Not Detected ECG 12 lead Result Value Ref Range VENTRICULAR RATE EKG 81 BPM ATRIAL RATE 81 BPM P-R INTERVAL 194 ms QRS DURATION 98 ms Q-T INTERVAL 438 ms Q-T INTERVAL (CORRECTED) 508 ms P WAVE AXIS 24 degrees QRS AXIS 22 degrees T AXIS 53 degrees INTERPRETATION TEXT Normal sinus rhythm ST & T wave abnormality, consider anterolateral ischemia Long QTc Abnormal ECG When compared with ECG of 03-AUG-2016 22:45, ST now depressed in Lateral leads T wave inversion now evident in Anterolateral leads QTc has lengthened Confirmed by ARIADNE WATKINS, AYAH ([id number]) on 09/12/2020 7:14:13 AM Basic Metabolic Panel Result Value Ref Range Na 136 136 - 145 mmol/L K 3.9 3.4 - 5.1 mmol/L Cl 100 98 - 107 mmol/L CO2 31 20 - 31 mmol/L Anion Gap 5 3 - 16 mmol/L Glucose 138 (H) 60 - 106 mg/dL BUN 19 9 - 23 mg/dL Creatinine 2.75 (H) 0.70 - 1.30 mg/dL eGFR, non- 22 (L) >=60 mL/min/1.73m2 eGFR, 27 (L) >=60 mL/min/1.73m2 Calcium 8.5 (L) 8.7 - 10.4 mg/dL BUN/Creatinine Ratio 6.9 CBC no Differential Result Value Ref Range White Blood Cells 7.3 4.0 - 11.0 K/uL Red Blood Cells 2.96 (L) 4.30 - 5.70 M/uL Hemoglobin 8.5 (L) 13.5 - 18.0 g/dL Hematocrit 26.8 (L) 40.0 - 51.0 % MCV 90.5 83.0 - 101.0 fL MCH 28.7 28.0 - 35.0 pg MCHC 31.7 (L) 32.0 - 36.0 g/dL RDW-CV 14.3 <15.0 % RDW-SD 47.0 (H) 35.1 - 46.3 fL Platelet Count 233 140 - 440 K/uL MPV 10.3 6.5 - 12.4 fL % nRBC 0 0 - 2 per 100 WBCs Absolute nRBC 0.00 0.00 - 0.01 K/uL Magnesium Result Value Ref Range Magnesium 2.0 1.6 - 2.6 mg/dL Troponin I Result Value Ref Range Troponin I 0.48 (H) <0.06 ng/mL Type and Screen Result Value Ref Range ABO B Rh Type Negative Antibody Screen Negative Red Blood Cells (PRBC) - Crossmatch Result Value Ref Range Product Code C5047G10 UNIT # [id number] UNIT ABO B UNIT RH NEG CROSSMATCH INTERP Compatible Unit Status Crossmatched Blood Product Expiration Date and Time [id number] Product Blood Type Barcode 1700 Red Blood Cells (PRBC) - Crossmatch Result Value Ref Range Product Code E6643B68 UNIT # [id number] UNIT ABO B UNIT RH NEG CROSSMATCH INTERP Compatible Unit Status Issued Blood Product Expiration Date and Time [id number] Product Blood Type Barcode 1700 Troponin I Result Value Ref Range Troponin I 0.93 (HH) <0.06 ng/mL Diagnostic Studies: Available data and images were reviewed personally. Significant results and findings are ad dressed here or in the Assessment and Plan. Thank you for the opportunity to be of assistance. Please call if you have any questions. Trinidad Barton MD Electronically signed: 09/12/2020 12:21 PM [facility] documented in this encounter Miscellaneous Notes Plan of Care - Sandy Vang, RN - 09/15/2020 2:48 PM PDTDon is A/O. He denies CP, SOB . He is on his baseline 4L n/c and resting comfortably. His R groin puncture site is still f irm to touch, but swelling is localized & stable. Intermittent discomfort at site. Bleeding controlled. CMS intact in RLE. Pt is discharging to dialysis chair this afternoon in [facility] on. Attempted to perform AVS education with patient, but he refused teaching with this RN. H is daughter, Charlotte, was called and discharge information was reviewed verbally with her. Osorio rd copy of AVS paperwork sent with patient at discharge & daughter is aware that he will be bringing it home with him. lan of Care - Chasity Farr RN - 09/15/2020 1:51 PM PDT Mr. Andujar will be discharging home today. Contacted Charlotte, Mr. Andujar's daughter, she states that her dad cannot discharge today. Ceasar fragoso feels he is not ready and does not want him to relapse. She also stated he needs to have d ialysis today and [facility] in [place] is not providing services today. [facility] will be running dialysis today, spoke to Hayley CEVALLOS [phone], who stated they will have Mr. Andujar's chair time for 1500 or a bit later today. Contacted [employer] transportation to request a same day hospital discharge transportation, spoke to Cristo. It was [facility] Contacted [facility] in [place] and requested a portable oxygen tank to be delivered to the hospital. Ashwin stated that their farm truck driver is doing deliveries in [facility] and will possibly leave [place] to [place] close to 1:00pm. Attending RN was made aware Contacted Alejandra at [facility], she stated they do not have availability for services at this time and possibly not until the end of next week. H&P, face sheet, HH order and DC summary was faxed to [facility] [phone] with fax co nfirmation reading OKLedy Slaughter [facility] services the [place] area. Contacted [facility] and spoke to Karen, she confirms receiving the fax and does not re quest additional information. She states she is working on the referral. Contacted [employer] again, spoke to Sera. She has set up transportation fo r [phone] today, she was again asked to have them bring a WC, she confirmed this. Chandan marcum RN was made aware of this. Contacted Charlotte and shared the transportation time her, she was also informed of the refer ral to [facility]. Charlotte was very appreciative of everything. She stated she will be able to transport her dad home after his dialysis today. Plan: Home today, transported to [facility] for dialysis, then home transported by daughter. services provided by [facility]. Electronically signed by: Chasity Farr RN 09/15/2020 3:18 PM PDT lan of Care - Cynthia Lin, PT - 09/15/2020 10:40 AM PDT Problem: Fall Injury Risk Goal: Absence of Fall and Fall-Related Injury Outcome: Ongoing, progressing Physical Therapy Initial Evaluation, Discharge Note Recommended discharge disposition: home with assist Post discharge recommendation: home health Equipment Recommendations: (has needed DME) Summary: Kavon was seen by physical therapy for treatment of impaired activity tolerance following admit for acute coronary syndrome, s/p cardiac cath. Emphasis of session included transfer training to bedside chair. Patient demonstrates progress towards functional goals as evidenced by ability to perform transfer at baseline level. Kavon has shown adequate p rogress towards goals and is to discharge PT at this time. RN cleared patient for participation in therapy. Patient was agreeable to therapy. Patient participated without adverse reaction. RN debriefed on therapy session and patient status. I t is encouraged that the patient be up in chair for all meals. Recommended mobility with nursing: Out of bed Back to bed bedside commode bedside commode No Assistive Device Overhead lift supervision / set-up 2 person assist Prior Functional Level: Daughter is Rosario Caregiver. WC bound but able to transfer independ ently. Barriers to community-based discharge: None Planned Interventions: bed mobility training, transfer training Recommended Frequency: one time visit; LTG Review Date: 09/15/20 Living Environment Lives With: child(nusrat), adult Living Arrangements: apartment Number of Stairs to Enter Home: 0 Number of Stairs Within Home: 0 Living Environment Comment: grab bars by toilet; tubshower with bench Precautions Precautions/Limitations: falls, oxygen therapy device and L/min Cognitive Assessment Additional Documentation: mood/behavior, orientation, arousal level Mood/Behavior: calm, cooperative Orientation: oriented x 4 Impairments Found (describe specific impairments): aerobic capacity/endurance, functional e ndurance/activity tolerance Bed Mobility Additional Documentation: supine to/from sit Supine to Sit, Level of Preston: modified independent Transfers Transfers Comments: set-up recliner to allow for transfer to bedside chair, similar to home set-up Additional Documentation: bed to/from chair Bed-Chair, Level of Preston: set up required Impairments: impaired balance, strength decreased Gait Gait Comments: non-ambulatory at baseline Range of Motion L LE ROM: BKA R LE ROM: WFL Strength L LE Strength: BKA R LE Strength: WFL Functional Endurance Functional Endurance Comments: good for functional transfer Goals Reflects last filed data and may be from multiple contributors. Additional Goal #1 PT Most Recent Value LTG Status new, met at 09/15/2020 1040 LTG Participate in PT evaluation and education. at 09/15/2020 1040 PT Time Calculation PT Additional Treatment Time: Co-treatment PT Co-treatment Start Time: 1026 PT Co-treatment Stop Time: 1038 PT Co-treatment Total Time: 12 PT Total Treatment Time: 12 Timed TX Code Minutes: 0 Electronically signed by: Cynthia Benitez, PT, 09/15/2020 11:26 AM PDT lan of Care - All La hays, OT - 09/15/2020 10:38 AM PDT Occupational Therapy Plan of Care Initial Evaluation, Discharge Note Summary: Kavon presents to occupational therapy with no significant OT related concerns upon admission for acute coronary syndrome and GI bleeding.. Objective exam reveals impairm ents with aerobic capacity/endurance, functional endurance/activity tolerance. Kavon perfor mikey at level appropriate for dc home with assist of his daughter who provides caregiving. Damian curtis will benefit from HHOT upon dc. Pt to be discharged from OT at this time. Staff to contin ue to encourage and promote independence with ADLs and functional mobility. Patient was agreeable to therapy. Patient participated without adverse reaction. It is enco uraged that the patient be up in chair for all meals. Recommended toileting with nursing: Day Night bedside commode bedside commode No Assistive Device No Assistive Device supervision / set-up supervision / set-up Barriers to discharge and functional limitations include decreased functional activity tole floyd, decreased bed mobility, decreased functional transfers, decreased ability to perform ADLs, and decreased ability to perform IADLs. Kavon will benefit from therapeutic intervention to address impairments and increase safet y and independence with activities necessary for safe discharge. Refer below for specific d etails regarding functional levels. Precautions/Limitations: falls, oxygen therapy device and L/min Previous Level of Function: Daughter is Rosario Caregiver. WC bound but able to transfer independently. Potential available assistance at discharge: Role Relationships Comment: Daughter is pt's caregiver and can provide 24/ assist as neede d Living Environment/Accessibility: Lives With: child(nusrat), adult Living Arrangements: apartment Home Accessibility: no concerns Number of Stairs to Enter Home: 0 Number of Stairs Within Home: 0 Financial Concerns: none Transportation Available: family or friend will provide, car Living Environment Comment: grab bars by toilet; tubshower with bench Patient/Family s Goals: Rehabilitation potential: good, to achieve stated therapy goals Occupational Therapy Discharge Recommendations are: Recommended discharge disposition: home with assist Post discharge occupational therapy recommendation: home health Equipment Recommendations: none Planned Interventions:other (see comments)(Dcing from OT) Recommended Frequency: one time visit Patient Status/Goals: Reflects last filed data and may be from multiple contributors. ADLs Assist provided for sock donning at R foot, pt reports daughter assist with socks at home Functional Endurance Good activity tolerance demonstrated for fucntional tf EOB>bedside chair, appropriate for d c home with assist Cognitive Pt cooperative throughout Mood/Behavior: calm, cooperative Bed Mobility Assistive Device: HOB elevated Supine to Sit, Level of Preston: modified independent Transfers Pt peformed tf EOB>bedside chair to simulate tf to his wc at home. No physical assist requi red, line mgmt provided. Bed-Chair, Level of Preston: set up required Impairments: impaired balance, strength decreased ROM BUE ROM not formally assessed, observed to be WFL for bed mob and bed>chair tf. Strength BUE strength not formally assessed, observed to be WFL for bed mob and bed>chair tf. OT Goal Review Date Most Recent Value LTG Review Date 09/22/20 at 09/15/2020 1038 Additional Goals #1 OT Most Recent Value LTG Status new, met at 09/15/2020 1038 LTG Pt will participate in OT evaluation and demonstrate performance at level appropriate for dc home with caregiving assist along with HHOT. at 09/15/2020 1038 OT Time Calculation OT Additional Treatment Time: Co-treatment OT Co-treatment Start Time: 102 OT Co-treatment Stop Time: 1038 OT Co-treatment Total Time: 12 OT Total Treatment Time: 12 Timed TX Code Minutes: 0 Electronically signed by: La Nguyen OT, 09/15/2020 12:38 PM PDT lan of Chel Melvin RN - 09/15/2020 7:00 AM PDTDon is alert and oriented, takes oxycodone q6hrs for chronic pain , VSS, hemato ma to right groin remains the same, area is softer, no s/s of bleeding noted, peripheral pul se weak. 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 Denied CP or pressure overnight. lan of Diana Watkins RRT - 09/15/2020 1:36 AM PDTDonaldis on his 4L home regiment. He didn't want to wear the BIPAP at bedside tonight. He took his breathing treatment. His lung sounds are clear and diminish ed and his SPO2 is SpO2: 99 % on 4liters/minute Problem: Gas Exchange Impaired Goal: Optimal Gas Exchange Outcome: Ongoing, progressing Problem: COPD Comorbidity Goal: Maintenance of COPD Symptom Control Outcome: Ongoing, progressing rief Op Note - Ron Orosco MD - 09/14/2020 2:56 PM PDT BRIEF OPERATIVE NOTE [facility] Pt. Name/Age/: Kavon Andujar 80 y.o. 1940 [facility]. Record Number: [id number] Date of admission: 09/12/2020 Date of Operation/Procedure: 09/14/2020 Preoperative Diagnosis: ANGINA Postoperative Diagnosis: Surgeon: Ron Orosco MD Hall Coordinator: None Anesthesia Provider(s): No anesthesia staff entered. Anesthesia Type: Anesthesia type not filed in the log. Procedure(s): CV COR ANGIO Operative Findings: Normal dominant RCA. High-grade proximal LAD and circumflex. EF 30%. 2.5 x 28 Synergy dilated to 3.0 in proximal LAD. 3.5 x 16 Synergy dilated to 4.0 and proxi mal circumflex artery. Wound Closure: Angio-Seal with initial non closure and hematoma Evidence of infection: No infection noted. Estimated Blood Loss: 25 cc IV Fluids: refer to anesthesia record Blood Transfusion: None Drains: none Specimen (s): * No specimens in log * Implants: Implant Name Type Inv. Item Serial No. Etcher Machine Lot No. LRB No. Used Action STENT [place] SYNERGY MR 2.5 X 28 - [id number] Stent STENT [place] SYNERGY MR 2.5 X 28 [id number] Daixe KYLE - BSCI [id number] N/A 1 Implanted STENT [place] SYNERGY MR 3.5 X 16 - [id number] Stent STENT [place] SYNERGY MR 3.5 X 16 [id number] [employer] SCIENTIFIC KYLE - BSCI [id number] N/A 1 Implanted ANGIOSEAL VIP 6F - [id number] Generic ANGIOSEAL VIP 6F TERUMO KYLE - TERU N/A 1 Implanted Counts: Instrument, sponge, and needle counts were correct prior to closure and at the con clusion of the case. Complications: None Disposition: The patient was taken to Critical Care Immediate Post-Operative Condition: Stable Electronically signed by: Ron Orosco MD, 09/14/2020, 2:56 PM PDT lan of Care - Kemar Moulton Chaplain - 08/31 12:33 PM PDTChaplaincy visit was part of routine rounding. Spiritual Care Kavon Andujar is a 80 y.o. male who is admitted for CP, GIB. Spiritual Evaluation: To assess his coping skills today. He fearful of the next procedure. Spiritual Interventions: Addressed his fear of lying down and not being able to breath. Spiritual Outcomes: He is not sabianism so we left with the idea of a positive outcome. Spiritual Goals/Follow-up: Follow-up PRN lan of Emelina Menezes RRT - 09/14/2020 12:00 PM PDTDon's breath sounds are variable from diminishe d and clear to coarse with wheezes. He is not experiencing any shortness of breath at rest. 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 He has a strong productive cou gh and quit smoking 1 month ago, after a 60 year history. He is worried that he may be over using his respiratory meds and probably needs to consult with his primary care provider afte r discharge. Problem: Gas Exchange Impaired Goal: Optimal Gas Exchange Outcome: Ongoing, progressing Problem: Airway Clearance Ineffective Goal: Effective Airway Clearance Outcome: Ongoing, progressing Problem: COPD Comorbidity Goal: Maintenance of COPD Symptom Control Outcome: Ongoing, not progressing lan of Fabiola Aguilar RRT - 09/14/2020 3:01 AM PDTPt sitting up in bed on 4 lnc with SpO2 99%, pt has = bilateral chest excursion without he use of ABM for I/E effort, no sxs of increased WOB. P t has good productive cough, BS CTA UL bilaterally with diminished LL bilaterally but is jose athing in a normal but shallow pattern.Pt did received dialysis today with 2300 cc removed. Pt has refused BIPAP throughout the night but it remains in the room on stby, pt NAD at thi s time. lan of Osito Mary Lou Vance RN - 09/13/2020 3:45 PM PDTCase Management Assessment: CM to patient room for initial assessment. Patient alert and oriented x 3 and resting comfortably in bed completing breathing tx with RT. Patient's daughter Charlotte ) present and supportive at bedside. Demographics, PCP (Dr. Bergman), and Pharmacy ([facility] in [place]) verified. Discharge Planning: Kavon is a disabled 80 y.o. that lives at home with his daughter in a single level [facility] in [place]. There are no steps to navigate and the home is handi-cap accessible with g rab bars in the bathroom and wide doors to accommodate the patients wheelchair. Per report from patient's daughter, the patient has history of BKA and has a prosthesis that he utilize s. Most recently the patient's stump has been edematous and painful so he primarily utilize s a wheelchair. There is a tub shower with extended shower bench, grab bars, and a hand held shower he ad. Kavon utilizes O2 at 4L pnc 23/06 that is managed through [facility] in [place], [place]. Charlotte informed this CM that she has been living with her father and has been his long term care social worker for "twenty years". It is of note that she is a TRAUMA SURGEON and the patient's state paid long term care social worker. She does cooking, cleaning, medication management, transportation, and companionship . Kavon is a chronic HD patient and attends outpatient dialysis at [facility] in [place] Mon , Wed, Fri. Options for discharge discussed. Patient and his daughter are agreeable to and would l ikely benefit from home health RN/OT services after discharge. CM left sticky note for prov ider to order. CM contacted [facility] to learn that they do not service [place]. CM contacted [facility] ([phone]) and found that they will see the adriana ent in [place]. Patient and his daughter deny any additional questions, concerns, or needs regarding a nticipated plan to return home with new home health when medically stable. Patient's daught er will provide transportation home and be able to assist in the home as needed after discha rge. Disposition: Plan A: Home with family support and new [facility] CM to follow up after patient able to work with therapies for their recommendations. CM to follow up with [facility] (phone: [phone]/ Electronically signed by: Mary Lou Nuñez RN 09/13/2020 4:25 PM PDT eICU Arnol - Valentine De Santiago RN - 09/13/2020 2:24 PM PDTPt is a&o x 4, pt pain managed well with scheduled roxycod one at this time. Pt is free from falls and injuries this shift. Pt still is able to make sm all amounts of urine. CBG trending in the low 100s no coverage given. HD completed, UF goal met without complications , AVF de accessed per facility protocol VSS. Pt is very eager to go home. Behaviors have been appropriate with this RN, not showing any aggression, has been pleasant and cooperative. lan of Fina Landry RRT - 09/13/2020 1:29 PM PDT Problem: Gas Exchange Impaired Goal: Optimal Gas Exchange 09/13/2020 1328 by Fina Wolff RRT Outcome: Ongoing, progressing 09/13/2020 1326 by Fina Wolff, MARCO ANTONIO Outcome: Ongoing, progressing Problem: Airway Clearance Ineffective Goal: Effective Airway Clearance Outcome: Ongoing, progressing Problem: COPD Comorbidity Goal: Maintenance of COPD Symptom Control Outcome: Ongoing, progressing This is a 80 y.o. male has medical history significant for end-stage renal disease, histor y of CVA, diabetes mellitus type 2, COPD, Recent dx of tongue cancer and NSTEMI who presen ts with chest pain. He is getting dialysis today and maintenance nebs for copd. He has decreased breath sounds SpO2: 100 % on 4liters/minute nasal cannula Which is his h ome regime. NIV on stand by 1: 35 PM PDTPlan of Mary Lou Fraga RN - 09/13/2020 10:48 AM PDTCM to patient room for assessment. Patient sleeping soundly and currently undergoing hemodialysis. CM to attempt visit again at a later time. Electronically signed by: Mary Lou Nuñez RN 09/13/2020 10:49 AM PDT lan of Kemar Monson Chaplain - 09/13/2020 9:09 AM PDTChaplaincy visit was part of routine rounding. Spiritual Care Kavon Andujar is a 80 y.o. male who is admitted for CP, GIB. Spiritual Evaluation: Don seemed that his mood had improved, but he soon started to complain and rant. I was firm that we get no where with this behavior. I was direct with him that his health will be bett er if he won't escalate as he did yesterday. We agreed to disagree but be calm. Spiritual Interventions: Confronted Mehran about his behavior. Spiritual Outcomes: He seemed to calm down and that his behavior is not acceptable. Spiritual Goals/Follow-up: Follow-up PRN. I gave the nurse my number to call when his daughter comes in this afternoon . eICU Note - Anju De Santiago RN - 09/13/2020 8:43 AM PDTPt right arm AV fistula accessed with two 16g needles, lidocaine was used for pt comfort, no resistance was met and both lines flushed with ease. HD 5hr run started. Procedure explained to patient and questions answered. Electronically si gned by Anju De Santiago RN at 09/13/2020 8:45 AM PDTPlan of Lauryn Nelson RN - 08/31 5:39 AM PDT Tolerated bipap at 35% most of night. Lungs diminished throughout. Sle pt most of night. No stools or bloody sputum noted. lan of Kerry Frank RRT - 09/12/2020 5:13 PM PDTFo rmatting of this note might be different from the original. Problem: Gas Exchange Impaired Goal: Optimal Gas Exchange Outcome: Ongoing, progressing Problem: Airway Clearance Ineffective Goal: Effective Airway Clearance Outcome: Ongoing, progressing Respiratory Progress Note Present Compliant: No chief complaint on file. 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 He has a 14.75 pack-year smoking history. He has never used smokeless tobacco. He reports that he does not drink alcohol or use drugs. Labs and Meds: Respiratory medications Sympathomimetics Disp Start End albuterol 2.5 mg/3 mL nebulizer solution 2.5 mg 09/12/2020 2.5 mg, Nebulization, EVERY 6 HOURS PRN, RT will administer. Notes to Pharmacy: OP Sig:Take 2.5 mg by nebulization every 6 hours as needed for Wheezing . albuterol-ipratropium 2.5-0.5 mg/3 mL nebulizer solution 3 mL 09/12/2020 3 mLs, Nebulization, RT TID Notes to Pharmacy: OP Sig:Take 3 mLs by nebulization Before breakfast, dinner and bedtime. Intake/Output Summary (Last 24 hours) at 09/12/2020 1713 Last data filed at 09/12/2020 1200 Gross per 24 hour Intake 419.34 ml Output 100 ml Net 319.34 ml No results for input(s): BNP in the last 168 hours. No results for input(s): PHART, PO2ART, RCQ2CGN, EKA9EUS, BEART, Y1VXRLEQ in the last 168 h ours. No results for input(s): SPECSOURCE, PHPOCB, PCO2, PO2, HCO3, BEART, TCO2, BEART, BE, POCO2 SAT in the last 168 hours. Invalid input(s): OLBWZ8IV, CHGC5MH Progress Note: Kavon oxygen saturation is SpO2: 100 % on 4liters/minute nasal cannula and a heart rate of 79. Breath sounds are crackles and post breathing treatment breath sounds are . Pt has a good, productive cough. Pt's respirations are shortness of breath reported, tachyp peterson with no use of accessory muscles. Changes: This am Don was found with 15 lpm oximask plus 6 lpm nasal cannula, c/o sob, requesting ni v. BS crackles. Placed on niv full face mask requiring 18/8 FiO2 35, tolerated much of the d ay and then placed on 4 lpm nasal cannula per home regimen approx 1600. Neb txs were given a s scheduled. lan of Lauryn Grant RN - 09/12/2020 5:57 AM PDTTransfer from [place]. (+) hemoccult at [place]. Received 1unit blood from [place]. Oxycodone for pain. Lungs clear but decreas ed in bases, sats 97% on 4 liters nc.Electronically signed by Lauryn Villareal, BAN at 020 5:57 AM PDTdocumented in this encounter Plan of Treatment +--------+ + + + + | Date | Type | Specialty | Care Team | Description | +--------+ + + + + | 09/19/ | Office | Cardiology | [facility], | | 2019 | Visit | | [facility] [address] | | | | | | [address] [place], | | | | | | [place] [address] | | | | | | [phone] | | | | | | | | +--------+ + + + + | 09/19/ | Clinical | Cardiology | | | | 2019 | Support | | | | +--------+ + + + + | 10/03/ | Office | Cardiology | Ron Orosco MD | | | 2019 | Visit | | [address] | | | | | | [place] | | | | | | [address] | | | | | | | | +--------+ + + + + | 10/30/ | Virtual | Nephrology | Farrukh Acuna MD | | | 2019 | Office | | [address] | | | | Visit | | [address] | | | | | | [address] | | | | | | | | +--------+ + + + + + + +--------+ + + | Name | Type | Priori | Associated Diagnoses | Order Schedule | | | | ty | | | + + +--------+ + + | * [facility] | Outpatient | Routin | ACS (acute | Ordered: 09/15/2020 | | -AMB Referral | Referral | e | coronary syndrome) | | | | | | (HCC) | | + + +--------+ + + | Ambulatory referral | Outpatient | Routin | ACS (acute | Ordered: 09/15/2020 | | to Cardiology | Referral | e | coronary syndrome) | | | | | | (HCC) | | + + +--------+ + + | Referral to Home | Outpatient | Routin | Acute on chronic | Ordered: 09/15/2020 | | Health | Referral | e | systolic congestive | | | | | | heart failure (HCC) | | + + +--------+ + + documented as of this encounter Procedures + +--------+ + + + | Procedure Name | Priori | Date/Time | Associated Diagnosis | Comments | | | ty | | | | + +--------+ + + + | POC GLUCOSE | Routin | 09/15/2020 | | Results for this | | | e | 11:50 AM | | procedure are in the | | | | PDT | | results section. | + +--------+ + + + | TROPONIN I | Routin | 09/15/2020 | | Results for this | | | e | 9:22 AM | | procedure are in the | | | | PDT | | results section. | + +--------+ + + + | POC GLUCOSE | Routin | 09/15/2020 | | Results for this | | | e | 6:37 AM | | procedure are in the | | | | PDT | | results section. | + +--------+ + + + | ECG 12 LEAD | Routin | 09/15/2020 | | Results for this | | | e | 4:18 AM | | procedure are in the | | | | PDT | | results section. | + +--------+ + + + | TROPONIN I | Routin | 09/15/2020 | | Results for this | | | e | 3:36 AM | | procedure are in the | | | | PDT | | results section. | + +--------+ + + + | CBC NO DIFFERENTIAL | Routin | 09/15/2020 | | Results for this | | | e | 3:36 AM | | procedure are in the | | | | PDT | | results section. | + +--------+ + + + | RENAL FUNCTION PANEL | Routin | 09/15/2020 | | Results for this | | | e | 3:36 AM | | procedure are in the | | | | PDT | | results section. | + +--------+ + + + | TROPONIN I | Routin | 09/14/2020 | | Results for this | | | e | 9:14 PM | | procedure are in the | | | | PDT | | results section. | + +--------+ + + + | POC GLUCOSE | Routin | 09/14/2020 | | Results for this | | | e | 8:42 PM | | procedure are in the | | | | PDT | | results section. | + +--------+ + + + | ECG 12 LEAD | Routin | 09/14/2020 | | Results for this | | | e | 3:39 PM | | procedure are in the | | | | PDT | | results section. | + +--------+ + + + | POC GLUCOSE | Routin | 09/14/2020 | | Results for this | | | e | 3:29 PM | | procedure are in the | | | | PDT | | results section. | + +--------+ + + + | TROPONIN I | Routin | 09/14/2020 | | Results for this | | | e | 3:21 PM | | procedure are in the | | | | PDT | | results section. | + +--------+ + + + | CV CARDIAC PROCEDURE | Routin | 09/14/2020 | | Results for this | | | e | 2:40 PM | | procedure are in the | | | | PDT | | results section. | + +--------+ + + + | CV CARDIAC PROCEDURE | Routin | 09/14/2020 | | Results for this | | | e | 2:40 PM | | procedure are in the | | | | PDT | | results section. | + +--------+ + + + | CV CARDIAC PROCEDURE | Routin | 09/14/2020 | | Results for this | | | e | 2:40 PM | | procedure are in the | | | | PDT | | results section. | + +--------+ + + + | CV CARDIAC PROCEDURE | Routin | 09/14/2020 | | Results for this | | | e | 2:40 PM | | procedure are in the | | | | PDT | | results section. | + +--------+ + + + | POC ACTIVATED | Routin | 09/14/2020 | | Results for this | | CLOTTING TIME ISTAT | e | 2:06 PM | | procedure are in the | | | | PDT | | results section. | + +--------+ + + + | POC ACTIVATED | Routin | 09/14/2020 | | Results for this | | CLOTTING TIME ISTAT | e | 1:45 PM | | procedure are in the | | | | PDT | | results section. | + +--------+ + + + | POC GLUCOSE | Routin | 09/14/2020 | | Results for this | | | e | 11:43 AM | | procedure are in the | | | | PDT | | results section. | + +--------+ + + + | TROPONIN I | Routin | 09/14/2020 | | Results for this | | | e | 9:16 AM | | procedure are in the | | | | PDT | | results section. | + +--------+ + + + | POC GLUCOSE | Routin | 09/14/2020 | | Results for this | | | e | 6:25 AM | | procedure are in the | | | | PDT | | results section. | + +--------+ + + + | RENAL FUNCTION PANEL | Routin | 09/14/2020 | | Results for this | | | e | 3:20 AM | | procedure are in the | | | | PDT | | results section. | + +--------+ + + + | TROPONIN I | Routin | 09/14/2020 | | Results for this | | | e | 3:19 AM | | procedure are in the | | | | PDT | | results section. | + +--------+ + + + | HEPATITIS B SURFACE | Routin | 09/14/2020 | | Results for this | | AG | e | 3:19 AM | | procedure are in the | | | | PDT | | results section. | + +--------+ + + + | CBC NO DIFFERENTIAL | Routin | 09/14/2020 | | Results for this | | | e | 3:19 AM | | procedure are in the | | | | PDT | | results section. | + +--------+ + + + | TROPONIN I | Routin | 09/13/2020 | | Results for this | | | e | 8:50 PM | | procedure are in the | | | | PDT | | results section. | + +--------+ + + + | POC GLUCOSE | Routin | 09/13/2020 | | Results for this | | | e | 8:31 PM | | procedure are in the | | | | PDT | | results section. | + +--------+ + + + | POC GLUCOSE | Routin | 09/13/2020 | | Results for this | | | e | 4:36 PM | | procedure are in the | | | | PDT | | results section. | + +--------+ + + + | TROPONIN I | Routin | 09/13/2020 | | Results for this | | | e | 2:09 PM | | procedure are in the | | | | PDT | | results section. | + +--------+ + + + | HEMOGLOBIN AND | Routin | 09/13/2020 | | Results for this | | HEMATOCRIT | e | 2:09 PM | | procedure are in the | | | | PDT | | results section. | + +--------+ + + + | POC GLUCOSE | Routin | 09/13/2020 | | Results for this | | | e | 11:52 AM | | procedure are in the | | | | PDT | | results section. | + +--------+ + + + | TROPONIN I | Routin | 09/13/2020 | | Results for this | | | e | 7:50 AM | | procedure are in the | | | | PDT | | results section. | + +--------+ + + + | POC GLUCOSE | Routin | 09/13/2020 | | Results for this | | | e | 6:11 AM | | procedure are in the | | | | PDT | | results section. | + +--------+ + + + | ECG 12 LEAD | ALEXI | 09/13/2020 | | Results for this | | | | 6:07 AM | | procedure are in the | | | | PDT | | results section. | + +--------+ + + + | TROPONIN I | Routin | 09/13/2020 | | Results for this | | | e | 2:56 AM | | procedure are in the | | | | PDT | | results section. | + +--------+ + + + | IRON AND TRANSFERRIN | Routin | 09/13/2020 | | Results for this | | | e | 2:56 AM | | procedure are in the | | | | PDT | | results section. | + +--------+ + + + | B TYPE NATRIURETIC | Routin | 09/13/2020 | | Results for this | | PEPTIDE | e | 2:56 AM | | procedure are in the | | | | PDT | | results section. | + +--------+ + + + | FERRITIN | Routin | 09/13/2020 | | Results for this | | | e | 2:56 AM | | procedure are in the | | | | PDT | | results section. | + +--------+ + + + | RENAL FUNCTION PANEL | Routin | 09/13/2020 | | Results for this | | | e | 2:56 AM | | procedure are in the | | | | PDT | | results section. | + +--------+ + + + | CBC NO DIFFERENTIAL | Routin | 09/13/2020 | | Results for this | | | e | 2:55 AM | | procedure are in the | | | | PDT | | results section. | + +--------+ + + + | POC GLUCOSE | Routin | 09/13/2020 | | Results for this | | | e | 12:14 AM | | procedure are in the | | | | PDT | | results section. | + +--------+ + + + | TROPONIN I | Routin | 09/12/2020 | | Results for this | | | e | 8:44 PM | | procedure are in the | | | | PDT | | results section. | + +--------+ + + + | HEMOGLOBIN AND | Routin | 09/12/2020 | | Results for this | | HEMATOCRIT | e | 8:44 PM | | procedure are in the | | | | PDT | | results section. | + +--------+ + + + | TROPONIN I | Routin | 09/12/2020 | | Results for this | | | e | 3:04 PM | | procedure are in the | | | | PDT | | results section. | + +--------+ + + + | TROPONIN I | Routin | 09/12/2020 | | Results for this | | | e | 8:37 AM | | procedure are in the | | | | PDT | | results section. | + +--------+ + + + | PRODUCT: RBC | Routin | 09/12/2020 | | Results for this | | | e | 6:56 AM | | procedure are in the | | | | PDT | | results section. | + +--------+ + + + | PRODUCT: RBC | Routin | 09/12/2020 | | Results for this | | | e | 5:48 AM | | procedure are in the | | | | PDT | | results section. | + +--------+ + + + | TROPONIN I | Routin | 09/12/2020 | | Results for this | | | e | 4:30 AM | | procedure are in the | | | | PDT | | results section. | + +--------+ + + + | CBC NO DIFFERENTIAL | Routin | 09/12/2020 | | Results for this | | | e | 4:30 AM | | procedure are in the | | | | PDT | | results section. | + +--------+ + + + | TYPE AND SCREEN | Routin | 09/12/2020 | | Results for this | | | e | 4:30 AM | | procedure are in the | | | | PDT | | results section. | + +--------+ + + + | MAGNESIUM | Routin | 09/12/2020 | | Results for this | | | e | 4:30 AM | | procedure are in the | | | | PDT | | results section. | + +--------+ + + + | BASIC METABOLIC | Routin | 09/12/2020 | | Results for this | | PANEL | e | 4:30 AM | | procedure are in the | | | | PDT | | results section. | + +--------+ + + + | ECG 12 LEAD | STAT | 09/12/2020 | | Results for this | | | | 2:50 AM | | procedure are in the | | | | PDT | | results section. | + +--------+ + + + | CORONAVIRUS | Routin | 09/12/2020 | | Results for this | | (COVID-19) NAAT | e | 2:49 AM | | procedure are in the | | | | PDT | | results section. | + +--------+ + + + | CULTURE, MRSA | Routin | 09/12/2020 | | Results for this | | | e | 2:41 AM | | procedure are in the | | | | PDT | | results section. | + +--------+ + + + | XR CHEST 1 VIEW | Routin | 09/11/2020 | | Results for this | | | e | 7:40 PM | | procedure are in the | | | | PDT | | results section. | + +--------+ + + + documented in this encounter Results POC Glucose (09/15/2020 11:50 AM PDT) + +---------+ + + + | Component | Value | Ref Range | Performed | Pathologist | | | | | At | Signature | + +---------+ + + + | Glucose, | 218 (H) | 70 - 109 mg/dL | [facility] | | | POC | | | [...] [address] | [place] | [phone] | | [facility] | | [address] | | | - LABORATORY | | | | + + + + + Troponin I (09/15/2020 9:22 AM PDT) + + + + + + | Component | Value | Ref Range | Performed | Pathologist | | | | | At | Signature | + + + + + + | Troponin I | 1.78 ()Comment: | <0.06 ng/mL | [facility] | | | | Comment:Reference | | [facility] | | | | Ranges: 0.00-0.06 = | | MEDICAL | | | | NORMAL >0.06 = | | CENTER - | | | | SUSPICIOUS FOR | | LABORATORY | | | | MYOCARDIAL DAMAGE NOTE: | | | | | | Values greater than | | | | | | 0.78 ng/mL have been | | | | | | shown to be strongly | | | | | | associated with acute | | | | | | myocardial infarction. | | | | | | The [employer] | | | | | | [employer]iology (ACC) | | | | | | recommends a decision | | | | | | limit of 0.06 ng/mL for | | | | | | this assay. Results | | | | | | greater than 0.06 can | | | | | | reflect a pre-infarct | | | | | | acute coronary syndrome, | | | | | | but can also reflect | | | | | | myocardial necrosis or | | | | | | injury that is not due | | | | | | to coronary artery | | | | | | disease. Some of these | | | | | | causes are sepsis, | | | | | | hypocolemia, atrial | | | | | | fibrillation, heart | | | | | | failure, pulmonary | | | | | | embolism, myocarditis, | | | | | | myocardial contusion, | | | | | | and renal failure. The | | | | | | diagnosis of myocardial | | | | | | infarction should be | | | | | | based on a combination | | | | | | of the patient's | | | | | | clinical presentation | | | | | | and the clinical | | | | | | laboratory test results | | | | | | (especially serial | | | | | | troponin levels). | | | | | | Critical Result called | | | | | | to and read back by | | | | | | Sandy Vang RN on | | | | | | 09/15/2020 at 10:09 AM | | | | | | PDT by Otf Mays. | | | | + + + + + + + + | Specimen | + + | Blood | + + + + + + + | Performing | Address | City/State/Zipcode | Phone Number | | Organization | | | | + + + + + | [facility] | [address] | [place] | [phone] | | [facility] | | [address] | | | - LABORATORY | | | | + + + + + POC Glucose (09/15/2020 6:37 AM PDT) + +---------+ + + + | Component | Value | Ref Range | Performed | Pathologist | | | | | At | Signature | + +---------+ + + + | Glucose, | 132 (H) | 70 - 109 mg/dL | [facility] | | | POC [...] [address] | [place] | [phone] | | [facility] | | [address] | | | - LABORATORY | | | | + + + + + ECG 12 lead (09/15/2020 4:18 AM PDT) + + + + + + | Component | Value | Ref Range | Performed | Pathologist | | | | | At | Signature | + + + + + + | VENTRICULAR | 72 | BPM | [facility] | | | RATE EKG | | | | | + + + + + + | ATRIAL RATE | 72 | BPM | [facility] | | + + + + + + | P-R | 182 | ms | [facility] | | | INTERVAL | | | | | + + + + + + | QRS | 96 | ms | [facility] | | | DURATION | | | | | + + + + + + | Q-T | 458 | ms | [facility] | | | INTERVAL | | | | | + + + + + + | Q-T | 501 | ms | [facility] | | | INTERVAL | | | | | | (CORRECTED) | | | | | + + + + + + | P WAVE AXIS | 28 | degrees | [facility] | | + + + + + + | QRS AXIS | 15 | degrees | [facility] | | + + + + + + | T AXIS | 137 | degrees | [facility] | | + + + + + + | INTERPRETAT | Normal sinus rhythmST & | | [facility] | | | ION TEXT | Marked T wave | | | | | | abnormality, consider | | | | | | anterolateral | | | | | | ischemiaLong QTcAbnormal | | | | | | ECGWhen compared with | | | | | | ECG of 14-SEP-2020 | | | | | | 15:39,No significant | | | | | | change was | | | | | | foundConfirmed by | | | | | | AYAH RON MD ([id number]) | | | | | | on 09/15/2020 5:42:22 AM | | | | | | | [...] + +---------+ + + Renal Function Panel (09/15/2020 3:36 AM PDT) + + + + + + | Component | Value | Ref Range | Performed | Pathologist | | | | | At | Signature | + + + + + + | Na | 134 (L) | 136 - 145 | [facility] | | | | | mmol/L | [facility] | | | | | | [facility]ICAL | | | | | | CENTER - | | | | | | LABORATORY | | + + + + + + | K | 4.5 | 3.4 - 5.1 | [facility] | | | | | mmol/L | [facility] | | | | | | MEDICAL | | | | | | CENTER - | | | | | | LABORATORY | | + + + + + + | Cl | 102 | 98 - 107 mmol/L | [facility] | | | | | | [facility] | | | | | | MEDICAL | | | | | | CENTER - | | | | | | LABORATORY | | + + + + + + | CO2 | 25 | 20 - 31 mmol/L | [facility] | | [...] + | Glucose | 127 (H) | 60 - 106 mg/dL | [facility] | | | | | | [facility] | | | | | | MEDICAL | | | | | | CENTER - | | | | | | LABORATORY | | + + + + + + | BUN | 45 (H) | 9 - 23 mg/dL | [facility] | | | | | | [facility] | | | | | | MEDICAL | | | | | | CENTER - | | | | | | LABORATORY | | + + + + + + | Creatinine | 4.06 (H) | 0.70 - 1.30 | [facility] | | | | | mg/dL | [facility] | | | | | | MEDICAL | | | | | | CENTER - | | | | | | LABORATORY | | + + + + + + | eGFR, | 14 (L)Comment: | >=60 | [facility] | | | non- | GLOMERULAR FILTRATION | mL/min/1.73m2 | [facility] | | | [place] | RATE,ESTIMATED | | MEDICAL | | | | mL/min/1.72e6Bbpg than | | CENTER - | | | | 60 Chronic kidney | | LABORATORY | | | | disease,if found over a | | | | | | 3-month period.Less than | | | | | | 15 Kidney failure | | | | + + + + + + | eGFR, | 17 (L)Comment: | >=60 | [facility] | | | | GLOMERULAR FILTRATION | mL/min/1.73m2 | [facility] | | | [place] | RATE,ESTIMATED | | MEDICAL | | | | mL/min/1.93z6Udio than | | CENTER - | | | | 60 Chronic kidney | | LABORATORY | | | | disease,if found over a | | | | | | 3-month period.Less than | | | | | | 15 Kidney failure | | | | + + + + + + | Calcium | 8.2 (L) | 8.7 - 10.4 | [facility] | | | | | mg/dL | [facility] | | | | | | MEDICAL | | | | | | CENTER - | | | | | | LABORATORY | | + + + + + + | Albumin | 3.2 | 3.2 - 4.8 g/dL | [facility] | | | | | | [facility] | | | | | | MEDICAL | | | | | | CENTER - | | | | | | LABORATORY | | + + + + + + | Phosphorus | 4.3 | 2.4 - 5.1 mg/dL | [facility] | | | | | | [facility] | | | | | | MEDICAL | | | | | | CENTER - | | | | | | LABORATORY | | + + + + + + | BUN/Creatin | 11.1 | | [facility] | | | ine [...] ST. | [address] | [place], [place] | [phone] | | [facility] | | [address] | | | - LABORATORY | | | | + + + + + CBC no Differential (09/15/2020 3:36 AM PDT) + + + + + + | Component | Value | Ref Range | Performed | Pathologist | | | | | At | Signature | + + + + + + | White Blood | 7.5 | 4.0 - 11.0 K/uL | [facility] | | | Cells | | | [facility] | | | | | | MEDICAL | | | | | | CENTER - | | | | | | LABORATORY | | + + + + + + | Red Blood | 2.76 (L) | 4.30 - 5.70 | [facility] | | | Cells | | M/uL | [facility] | | | | | | MEDICAL | | | | | | CENTER - | | | | | | LABORATORY | | + + + + + + | Hemoglobin | 8.0 (L) | 13.5 - 18.0 | [facility] | | | | | g/dL | [facility] | | | | | | MEDICAL | | | | | | CENTER - | | | | | | LABORATORY | | + + + + + + | Hematocrit | 25.3 (L) | 40.0 - 51.0 % | [facility] | | | | | | [facility] | | | | | | MEDICAL | | | | | | CENTER - | | | | | | LABORATORY | | + + + + + + | MCV | 91.7 | 83.0 - 101.0 fL | [facility] | | | | | | [facility] | | | | | | MEDICAL | | | | | | CENTER - | | | | | | LABORATORY | | + + + + + + | MCH | 29.0 | 28.0 - 35.0 pg | [facility] | | | | | | [facility] | | | | | | MEDICAL | | | | | | CENTER - | | | | | | LABORATORY | | + + + + + + | MCHC | 31.6 (L) | 32.0 - 36.0 | [facility] | | | | | g/dL | [facility] | | | | | | MEDICAL | | | | | | CENTER - | | | | | | LABORATORY | | + + + + + + | RDW-CV | 14.6 | <15.0 % | [facility] | | | | | | [facility] | | | | | | MEDICAL | | | | | | CENTER - | | | | | | LABORATORY | | + + + + + + | RDW-SD | 48.2 (H) | 35.1 - 46.3 fL | [facility] | | | | | | [facility] | | | | | | MEDICAL | | | | | | CENTER - | | | | | | LABORATORY | | + + + + + + | Platelet | 234 | 140 - 440 K/uL | [facility] | | | Count | | | [facility] | | | | | | MEDICAL | | | | | | CENTER - | | | | | | LABORATORY | | + + + + + + | MPV | 10.4 | 6.5 - 12.4 fL | [facility] | | | | | | [facility] | | | | | | MEDICAL | | | | | | CENTER - | | | | | | LABORATORY | | + + + + + + | % nRBC | 0 | 0 - 2 per 100 | [facility] | | | | | WBCs | [facility] | | | | | | MEDICAL | | | | | | CENTER - | | | | | | LABORATORY | | + + + + + + | Absolute | 0.00 | 0.00 - 0.01 | [facility] | | | [facility] | | K/uL | [facility] | [...] [address] | [place] | [phone] | | [facility] | | [address] | | | - LABORATORY | | | | + + + + + Troponin I (09/15/2020 3:36 AM PDT) + + + + + + | Component | Value | Ref Range | Performed | Pathologist | | | | | At | Signature | + + + + + + | Troponin I | 1.90 ()Comment: | <0.06 ng/mL | [facility] | | | | Comment:Reference | | [facility] | | | | Ranges: 0.00-0.06 = | | MEDICAL | | | | NORMAL >0.06 = | | CENTER - | | | | SUSPICIOUS FOR | | LABORATORY | | | | MYOCARDIAL DAMAGE NOTE: | | | | | | Values greater than | | | | | | 0.78 ng/mL have been | | | | | | shown to be strongly | | | | | | associated with acute | | | | | | myocardial infarction. | | | | | | The [employer] | | | | | | [employer]iology (ACC) | | | | | | recommends a decision | | | | | | limit of 0.06 ng/mL for | | | | | | this assay. Results | | | | | | greater than 0.06 can | | | | | | reflect a pre-infarct | | | | | | acute coronary syndrome, | | | | | | but can also reflect | | | | | | myocardial necrosis or | | | | | | injury that is not due | | | | | | to coronary artery | | | | | | disease. Some of these | | | | | | causes are sepsis, | | | | | | hypocolemia, atrial | | | | | | fibrillation, heart | | | | | | failure, pulmonary | | | | | | embolism, myocarditis, | | | | | | myocardial contusion, | | | | | | and renal failure. The | | | | | | diagnosis of myocardial | | | | | | infarction should be | | | | | | based on a combination | | | | | | of the patient's | | | | | | clinical presentation | | | | | | and the clinical | | | | | | laboratory test results | | | | | | (especially serial | | | | | | troponin levels). | | | | | | Consistent with previous | | | | | | results. | | | | + + + + + + + + | Specimen | + + | Blood | + + + + + + + | Performing | Address | City/State[facility] | Phone Number | | Organization | | | | + + + + + | [facility] | [address] | [place] | [phone] | | [facility] | | [address] | | | - LABORATORY | | | | + + + + + Troponin I (09/14/2020 9:14 PM PDT) + + + + + + | Component | Value | Ref Range | Performed | Pathologist | | | | | At | Signature | + + + + + + | Troponin I | 1.90 ()Comment: | <0.06 ng/mL | [facility] | | | | Comment:Reference | | [facility] | | | | Ranges: 0.00-0.06 = | | MEDICAL | | | | NORMAL >0.06 = | | CENTER - | | | | SUSPICIOUS FOR | | LABORATORY | | | | MYOCARDIAL DAMAGE NOTE: | | | | | | Values greater than | | | | | | 0.78 ng/mL have been | | | | | | shown to be strongly | | | | | | associated with acute | | | | | | myocardial infarction. | | | | | | The [employer] | | | | | | [employer] ([employer]) | | | | | | recommends a decision | | | | | | limit of 0.06 ng/mL for | | | | | | this assay. Results | | | | | | greater than 0.06 can | | | | | | reflect a pre-infarct | | | | | | acute coronary syndrome, | | | | | | but can also reflect | | | | | | myocardial necrosis or | | | | | | injury that is not due | | | | | | to coronary artery | | | | | | disease. Some of these | | | | | | causes are sepsis, | | | | | | hypocolemia, atrial | | | | | | fibrillation, heart | | | | | | failure, pulmonary | | | | | | embolism, myocarditis, | | | | | | myocardial contusion, | | | | | | and renal failure. The | | | | | | diagnosis of myocardial | | | | | | infarction should be | | | | | | based on a combination | | | | | | of the patient's | | | | | | clinical presentation | | | | | | and the clinical | | | | | | laboratory test results | | | | | | (especially serial | | | | | | troponin levels). | | | | | | Critical Result called | | | | | | to and read back by | | | | | | Steven Marquez RN on | | | | | | 09/14/2020 at 9:48 PM | | | | | | PDT by Kalia Wyatt. | | | | + + + + + + + + | Specimen | + + | Blood | + + + + + + + | Performing | Address | City/State/Zipcode | Phone Number | | Organization | | | | + + + + + | [facility] | [address] | [place] | [phone] | | [facility] | | [address] | | | - LABORATORY | | | | + + + + + POC Glucose (09/14/2020 8:42 PM PDT) + +---------+ + + + | Component | Value | Ref Range | Performed | Pathologist | | | | | At | Signature | + +---------+ + + + | Glucose, | 193 (H) | 70 - 109 mg/dL | [facility] | | | POC | | | [facility] | | [facility] [...] [address] | [place] | [phone] | | [facility] | | [address] | | | - LABORATORY | | | | + + + + + ECG 12 lead (09/14/2020 3:39 PM PDT) + + + + + + | Component | Value | Ref Range | Performed | Pathologist | | | | | At | Signature | + + + + + + | VENTRICULAR | 73 | BPM | [facility] | | | RATE EKG | | | | | + + + + + + | ATRIAL RATE | 73 | BPM | [facility] | | + + + + + + | P-R | 150 | ms | [facility] | | | INTERVAL | | | | | + + + + + + | QRS | 90 | ms | [facility] | | | DURATION | | | | | + + + + + + | Q-T | 458 | ms | [facility] | | | INTERVAL | | | | | + + + + + + | Q-T | 504 | ms | [facility] | | | INTERVAL | | | | | | (CORRECTED) | | | | | + + + + + + | QRS AXIS | 36 | degrees | [facility] | | + + + + + + | T AXIS | 128 | degrees | [facility] | | + + + + + + | INTERPRETAT | Normal sinus rhythmT | | [facility] | | | ION TEXT | wave abnormality, | | | | | | consider anterolateral | | | | | | ischemiaLong QTcAbnormal | | | | | | ECGWhen compared with | | | | | | ECG of 13-SEP-2020 | | | | | | 06:07,Inverted T waves | | | | | | have replaced | | | | | | nonspecific T wave | | | | | | abnormality in Lateral | | | | | | leadsConfirmed by | | | | | | AYAH RON MD ([id number]) | | | | | | on 09/14/2020 7:09:00 PM | | | | | | | [...] | | | + +---------+ + + POC Glucose (09/14/2020 3:29 PM PDT) + +---------+ + + + | Component | Value | Ref Range | Performed | Pathologist | | | | | At | Signature | + +---------+ + + + | Glucose, | 110 (H) | 70 - 109 mg/dL | [facility] | | | POC [...] [address] | [place] | [phone] | | [facility] | | [address] | | | - LABORATORY | | | | + + + + + Troponin I (09/14/2020 3:21 PM PDT) + + + + + + | Component | Value | Ref Range | Performed | Pathologist | | | | | At | Signature | + + + + + + | Troponin I | 1.38 ()Comment: | <0.06 ng/mL | [facility] | | | | Comment:Reference | | [facility] | | | | Ranges: 0.00-0.06 = | | MEDICAL | | | | NORMAL >0.06 = | | CENTER - | | | | SUSPICIOUS FOR | | LABORATORY | | | | MYOCARDIAL DAMAGE NOTE: | | | | | | Values greater than | | | | | | 0.78 ng/mL have been | | | | | | shown to be strongly | | | | | | associated with acute | | | | | | myocardial infarction. | | | | | | The [employer] | | | | | | [employer]iology ([employer]) | | | | | | recommends a decision | | | | | | limit of 0.06 ng/mL for | | | | | | this assay. Results | | | | | | greater than 0.06 can | | | | | | reflect a pre-infarct | | | | | | acute coronary syndrome, | | | | | | but can also reflect | | | | | | myocardial necrosis or | | | | | | injury that is not due | | | | | | to coronary artery | | | | | | disease. Some of these | | | | | | causes are sepsis, | | | | | | hypocolemia, atrial | | | | | | fibrillation, heart | | | | | | failure, pulmonary | | | | | | embolism, myocarditis, | | | | | | myocardial contusion, | | | | | | and renal failure. The | | | | | | diagnosis of myocardial | | | | | | infarction should be | | | | | | based on a combination | | | | | | of the patient's | | | | | | clinical presentation | | | | | | and the clinical | | | | | | laboratory test results | | | | | | (especially serial | | | | | | troponin levels). | | | | | | Critical Result called | | | | | | to and read back by Kathya | | | | | | Rory Sosa RN on | | | | | | 09/14/2020 at 4:03 PM | | | | | | PDT by Andrez Crowe. | | | | | | | [...] [address] | [place] | [phone] | | [facility] | | [id number] | | | - LABORATORY | | | | + + + + + CV CARDIAC PROCEDURE (09/14/2020 2:40 PM PDT) + +-------+ + + + | Component | Value | Ref Range | Performed | Pathologist | | | | | At | Signature | + +-------+ + + + | LVEF-LVGRAM | 20 | % | [facility] | | | CARDIAC | | | | | | CATH | | | | | + +-------+ + + + + + | Specimen | + + | | + + + + -+ | Narrative | Performed At | + + -+ | Patient with | [facility] | | end-stage renal disease and recurrent hospitalization for chest pains | | | and NSTEMI with elevated troponins. Patient brought to cardiac | | | catheterization lab with femoral approach used because of his | | | dialysis. History of left BKA. Puncture was performed under | | | fluoroscopic guidance toward calcification. 6 [place] sheath was | | | placed. Coronary intervention showed subtotal proximal LAD lesion | | | after the first diagonal. First diagonal was moderate to small with | | | some disease of the proximal bifurcation. Circumflex was large with | | | proximal 95% focal narrowing. RCA was moderate in size and normal | | | throughout its course. LV showed significant dilated heart with | | | ejection fraction less than 30% and possibly close to 20%. LVEDP | | | however was not elevated was in the 18 range. LAD was dilated with a | | | 2.0 balloon followed by a 2.5 x 20 Synergy which postdilated to 3.0. | | | Circumflex was ballooned with a 2 5 balloon and then a 3.0 balloon | | | followed by a 3.5 x 16 Synergy stent. This was postdilated with a | | | 4.0. Results were excellent. Angio-Seal closure was used for femoral | | | site. This initially has some bleeding with mild to moderate | | | hematoma. Uppercase evaluation showed there was good flow down the | | | SFA. Patient did have his CPAP during his sedation which was | | | moderate and achieved with medication listed by the [facility] nurse | | | under my supervision. Hemostasis was further achieved with local | | | compression and a FemoStop. Patient had mild discomfort in assessing | | | his femoral site and with closure but otherwise tolerated procedure | | | well. For additional detail as to the procedures performed and the | | | equipment that was utilized, please refer to the Procedure Log. | | | | | |Hemostasis was further achieved with local compression and a FemoStop. | | |Patient had mild discomfort in assessing his femoral site and with closure | | |but otherwise tolerated procedure well. | | | | | | | | | | | |For additional detail as to the procedures performed and the equipment | | |that was utilized, please refer to the Procedure Log. | | | | | | | | | | | | | | | | | | | | | | | | | | | | | | | | | | | | | | | | | | | | + + -+ + +---------+ + + | Performing | Address | City/State/Zipcode | Phone Number | | Organization | | | | + +---------+ + + | [facility] | | | | + +---------+ + + POC ACT (09/14/2020 2:06 PM PDT) + + + + + + | Component | Value | Ref Range | Performed | Pathologist | | | | | At | Signature | + + + + + + | Activated | >400 (HH) | 125 - 175 | [facility] | | | Clotting | | second(s) | [facility] | | | Time, POC | | | MEDICAL | | | [...] [address] | [place] | [phone] | | [facility] | | [address] | | | - LABORATORY | | | | + + + + + POC ACT (09/14/2020 1:45 PM PDT) + + + + + + | Component | Value | Ref Range | Performed | Pathologist | | | | | At | Signature | + + + + + + | Activated | >400 (HH) | 125 - 175 | [facility] | | | Clotting | | second(s) | [facility] | | | Time, POC | | | MEDICAL | | | [...] + | [facility] | [address] | [place] | [phone] | | [facility] | | [address] | | | - LABORATORY | | | | + + + + + POC Glucose (09/14/2020 11:43 AM PDT) + +---------+ + + + | Component | Value | Ref Range | Performed | Pathologist | | | | | At | Signature | + +---------+ + + + | Glucose, | 132 (H) | 70 - 109 mg/dL | [facility] | | | POC [...] [address] | [place] | [phone] | | [facility] | | [address] | | | - LABORATORY | | | | + + + + + Troponin I (09/14/2020 9:16 AM PDT) + + + + + + | Component | Value | Ref Range | Performed | Pathologist | | | | | At | Signature | + + + + + + | Troponin I | 1.03 ()Comment: | <0.06 ng/mL | [facility] | | | | Comment:Reference | | [facility] | | | | Ranges: 0.00-0.06 = | | MEDICAL | | | | NORMAL >0.06 = | | CENTER - | | | | SUSPICIOUS FOR | | LABORATORY | | | | MYOCARDIAL DAMAGE NOTE: | | | | | | Values greater than | | | | | | 0.78 ng/mL have been | | | | | | shown to be strongly | | | | | | associated with acute | | | | | | myocardial infarction. | | | | | | The [employer] | | | | | | Cardiology (ACC) | | | | | | recommends a decision | | | | | | limit of 0.06 ng/mL for | | | | | | this assay. Results | | | | | | greater than 0.06 can | | | | | | reflect a pre-infarct | | | | | | acute coronary syndrome, | | | | | | but can also reflect | | | | | | myocardial necrosis or | | | | | | injury that is not due | | | | | | to coronary artery | | | | | | disease. Some of these | | | | | | causes are sepsis, | | | | | | hypocolemia, atrial | | | | | | fibrillation, heart | | | | | | failure, pulmonary | | | | | | embolism, myocarditis, | | | | | | myocardial contusion, | | | | | | and renal failure. The | | | | | | diagnosis of myocardial | | | | | | infarction should be | | | | | | based on a combination | | | | | | of the patient's | | | | | | clinical presentation | | | | | | and the clinical | | | | | | laboratory test results | | | | | | (especially serial | | | | | | troponin levels). | | | | | | Consistent with previous | | | | | | results. | | | | + + + + + + + + | Specimen | + + | Blood | + + + + + + + | Performing | Address | City/State/Zipcode | Phone Number | | Organization | | | | + + + + + | [facility] | [address] | [place] | [phone] | | [facility] | | [address] | | | - LABORATORY | | | | + + + + + POC Glucose (09/14/2020 6:25 AM PDT) + +---------+ + + + | Component | Value | Ref Range | Performed | Pathologist | | | | | At | Signature | + +---------+ + + + | Glucose, | 119 (H) | 70 - 109 mg/dL | [facility] | | | POC [...] ST. | [address] | [place], [place] | [phone] | | [facility] | | [address] | | | - LABORATORY | | | | + + + + + Renal Function Panel (09/14/2020 3:20 AM PDT) + + + + + + | Component | Value | Ref Range | Performed | Pathologist | | | | | At | Signature | + + + + + + | Na | 136 | 136 - 145 | [facility] | | | | | mmol/L | [facility] | | | | | | MEDICAL | | | | | | CENTER - | | | | | | LABORATORY | | + + + + + + | K | 4.5 | 3.4 - 5.1 | [facility] | | | | | mmol/L | [facility] | | | | | | MEDICAL | | | | | | CENTER - | | | | | | LABORATORY | | + + + + + + | Cl | 102 | 98 - 107 mmol/L | [facility] | | | | | | [facility] | | | | | | MEDICAL | | | | | | CENTER - | | | | | | LABORATORY | | + + + + + + | CO2 | 30 | 20 - 31 mmol/L | [facility] | | | | | | [facility] | | | | | | MEDICAL | | | | | | CENTER - | | | | | | LABORATORY | | + + + + + + | Anion Gap | 4 | 3 - 16 mmol/L | [facility] | | | | | | [facility] | | | | | | MEDICAL | | | | | | CENTER - | | | | | | LABORATORY | | + + + + + + | Glucose | 122 (H) | 60 - 106 mg/dL | [facility] | | | | | | [facility] | | | | | | MEDICAL | | | | | | CENTER - | | | | | | LABORATORY | | + + + + + + | BUN | 33 (H) | 9 - 23 mg/dL | [facility] | | | | | | [facility] | | | | | | MEDICAL | | | | | | CENTER - | | | | | | LABORATORY | | + + + + + + | Creatinine | 3.49 (H) | 0.70 - 1.30 | [facility] | | | | | mg/dL | [facility] | | | | | | MEDICAL | | | | | | CENTER - | | | | | | LABORATORY | | + + + + + + | eGFR, | 17 (L)Comment: | >=60 | [facility] | | | non- | GLOMERULAR FILTRATION | mL/min/1.73m2 | [facility] | | | [place] | RATE,ESTIMATED | | MEDICAL | | | | mL/min/1.47p9Mlba than | | CENTER - | | | | 60 Chronic kidney | | LABORATORY | | | | disease,if found over a | | | | | | 3-month period.Less than | | | | | | 15 Kidney failure | | | | + + + + + + | eGFR, | 21 (L)Comment: | >=60 | [facility] | | | | GLOMERULAR FILTRATION | mL/min/1.73m2 | [facility] | | | [place]ese | RATE,ESTIMATED | | MEDICAL | | | | mL/min/1.54z3Onoj than | | CENTER - | | | | 60 Chronic kidney | | LABORATORY | | | | disease,if found over a | | | | | | 3-month period.Less than | | | | | | 15 Kidney failure | | | | + + + + + + | Calcium | 8.6 (L) | 8.7 - 10.4 | [facility] | | | | | mg/dL | [facility] | | | | | | MEDICAL | | | | | | CENTER - | | | | | | LABORATORY | | + + + + + + | Albumin | 3.4 | 3.2 - 4.8 g/dL | [facility] | | | | | | [facility] | | | | | | MEDICAL | | | | | | CENTER - | | | | | | LABORATORY | | + + + + + + | Phosphorus | 3.5 | 2.4 - 5.1 mg/dL | [facility] | | | | | | [facility] | | | | | | MEDICAL | | | | | | CENTER - | | | | | | LABORATORY | | + + + + + + | BUN/Creatin | 9.5 | | [facility] | | | ine [...] + | [facility] | [address] | [place] | [phone] | | [facility] | | [address] | | | - LABORATORY | | | | + + + + + CBC no Differential (09/14/2020 3:19 AM PDT) + + + + + + | Component | Value | Ref Range | Performed | Pathologist | | | | | At | Signature | + + + + + + | White Blood | 7.3 | 4.0 - 11.0 K/uL | [facility] | | | Cells | | | [facility] | | | | | | MEDICAL | | | | | | CENTER - | | | | | | LABORATORY | | + + + + + + | Red Blood | 3.14 (L) | 4.30 - 5.70 | [facility] | | | Cells | | M/uL | [facility] | | | | | | MEDICAL | | | | | | CENTER - | | | | | | LABORATORY | | + + + + + + | Hemoglobin | 9.1 (L) | 13.5 - 18.0 | [facility] | | | | | g/dL | . [facility] | | | | | | MEDICAL | | | | | | CENTER - | | | | | | LABORATORY | | + + + + + + | Hematocrit | 29.1 (L) | 40.0 - 51.0 % | [facility] | | | | | | [facility] | | | | | | MEDICAL | | | | | | CENTER - | | | | | | LABORATORY | | + + + + + + | MCV | 92.7 | 83.0 - 101.0 fL | [facility] | | | | | | [facility] | | | | | | MEDICAL | | | | | | CENTER - | | | | | | LABORATORY | | + + + + + + | MCH | 29.0 | 28.0 - 35.0 pg | [facility] | | | | | | [facility] | | | | | | MEDICAL | | | | | | CENTER - | | | | | | LABORATORY | | + + + + + + | MCHC | 31.3 (L) | 32.0 - 36.0 | [facility] | | | | | g/dL | [facility] | | | | | | MEDICAL | | | | | | CENTER - | | | | | | LABORATORY | | + + + + + + | RDW-CV | 14.6 | <15.0 % | [facility] | | | | | | [facility] | | | | | | MEDICAL | | | | | | CENTER - | | | | | | LABORATORY | | + + + + + + | RDW-SD | 49.5 (H) | 35.1 - 46.3 fL | [facility] | | | | | | [facility] | | | | | | MEDICAL | | | | | | CENTER - | | | | | | LABORATORY | | + + + + + + | Platelet | 219 | 140 - 440 K/uL | [facility] | | | Count | | | [facility] | | | | | | MEDICAL | | | | | | CENTER - | | | | | | LABORATORY | | + + + + + + | MPV | 10.2 | 6.5 - 12.4 fL | [facility] | | | | | | [facility] | | | | | | MEDICAL | | | | | | CENTER - | | | | | | LABORATORY | | + + + + + + | % nRBC | 0 | 0 - 2 per 100 | [facility] | | | | | WBCs | [facility] | | | | | | MEDICAL | | | | | | CENTER - | | | | | | LABORATORY | | + + + + + + | Absolute | 0.00 | 0.00 - 0.01 | [facility] | | | nRBC | | K/uL | [facility] | [...] ST. | [address] | [place], [place] | [phone] | | [facility] | | [address] | | | - LABORATORY | | | | + + + + + Troponin I (09/14/2020 3:19 AM PDT) + + + + + + | Component | Value | Ref Range | Performed | Pathologist | | | | | At | Signature | + + + + + + | Troponin I | 1.42 ()Comment: | <0.06 ng/mL | [facility] | | | | Comment:Reference | | [facility] | | | | Ranges: 0.00-0.06 = | | MEDICAL | | | | NORMAL >0.06 = | | CENTER - | | | | SUSPICIOUS FOR | | LABORATORY | | | | MYOCARDIAL DAMAGE NOTE: | | | | | | Values greater than | | | | | | 0.78 ng/mL have been | | | | | | shown to be strongly | | | | | | associated with acute | | | | | | myocardial infarction. | | | | | | The [employer] | | | | | | Cardiology (ACC) | | | | | | recommends a decision | | | | | | limit of 0.06 ng/mL for | | | | | | this assay. Results | | | | | | greater than 0.06 can | | | | | | reflect a pre-infarct | | | | | | acute coronary syndrome, | | | | | | but can also reflect | | | | | | myocardial necrosis or | | | | | | injury that is not due | | | | | | to coronary artery | | | | | | disease. Some of these | | | | | | causes are sepsis, | | | | | | hypocolemia, atrial | | | | | | fibrillation, heart | | | | | | failure, pulmonary | | | | | | embolism, myocarditis, | | | | | | myocardial contusion, | | | | | | and renal failure. The | | | | | | diagnosis of myocardial | | | | | | infarction should be | | | | | | based on a combination | | | | | | of the patient's | | | | | | clinical presentation | | | | | | and the clinical | | | | | | laboratory test results | | | | | | (especially serial | | | | | | troponin levels). | | | | | | Critical Result called | | | | | | to and read back by Niya | | | | | | Abraham Daley RN on | | | | | | 09/14/2020 at 4:12 AM | | | | | | PDT by Kalia Wyatt. | | | | + + + + + + + + | Specimen | + + | Blood | + + + + + + + | Performing | Address | City/State/Zipcode | Phone Number | | Organization | | | | + + + + + | [facility] | [address] | [place] | [phone] | | [facility] | | [address] | | | - LABORATORY | | | | + + + + + Hepatitis B Surface Ag (09/14/2020 3:19 AM PDT) + + + + + + | Component | Value | Ref Range | Performed | Pathologist | | | | | At | Signature | + + + + + + | Hepatitis B | Negative | Negative | [facility] | | | Surface Ag | | | LAB [facility] | | | | | | - [facility] | | + + + + + + + + | Specimen | + + | Blood | + + + + + | Narrative | Performed At | + + + | Performed at: 01 - [facility] [place] [address], | REFERENCE LAB | | [place], [place] [id number] Division Sales Manager: Thony Valdes MD, Phone: | [place] [place] | | [phone] | | + + + + + + + + | Performing | Address | City/State/Zipcode | Phone Number | | Organization | | | | + + + + + | [facility] | [address] | [place], [place] | [phone] | | [facility] | [place] | [address] | | + + + + + Troponin I (09/13/2020 8:50 PM PDT) + + + + + + | Component | Value | Ref Range | Performed | Pathologist | | | | | At | Signature | + + + + + + | Troponin I | 1.62 ()Comment: | <0.06 ng/mL | [facility] | | | | Comment:Reference | | [facility] | | | | Ranges: 0.00-0.06 = | | MEDICAL | | | | NORMAL >0.06 = | | CENTER - | | | | SUSPICIOUS FOR | | LABORATORY | | | | MYOCARDIAL DAMAGE NOTE: | | | | | | Values greater than | | | | | | 0.78 ng/mL have been | | | | | | shown to be strongly | | | | | | associated with acute | | | | | | myocardial infarction. | | | | | | The [employer] | | | | | | Cardiology (ACC) | | | | | | recommends a decision | | | | | | limit of 0.06 ng/mL for | | | | | | this assay. Results | | | | | | greater than 0.06 can | | | | | | reflect a pre-infarct | | | | | | acute coronary syndrome, | | | | | | but can also reflect | | | | | | myocardial necrosis or | | | | | | injury that is not due | | | | | | to coronary artery | | | | | | disease. Some of these | | | | | | causes are sepsis, | | | | | | hypocolemia, atrial | | | | | | fibrillation, heart | | | | | | failure, pulmonary | | | | | | embolism, myocarditis, | | | | | | myocardial contusion, | | | | | | and renal failure. The | | | | | | diagnosis of myocardial | | | | | | infarction should be | | | | | | based on a combination | | | | | | of the patient's | | | | | | clinical presentation | | | | | | and the clinical | | | | | | laboratory test results | | | | | | (especially serial | | | | | | troponin levels). | | | | | | Consistent with previous | | | | | | results. | | | | + + + + + + + + | Specimen | + + | Blood | + + + + + + + | Performing | Address | City[facility]State[facility] | Phone Number | | Organization | | | | + + + + + | [facility] | [address] | [place] | [phone] | | [facility] | | [address] | | | - LABORATORY | | | | + + + + + POC Glucose (09/13/2020 8:31 PM PDT) + +---------+ + + + | Component | Value | Ref Range | Performed | Pathologist | | | | | At | Signature | + +---------+ + + + | Glucose, | 173 (H) | 70 - 109 mg/dL | [facility] | | | POC | | | [facility] | | | | | | MEDICAL [...] + | [facility] | [address] | [place] | [phone] | | [facility] | | [address] | | | - LABORATORY | | | | + + + + + POC Glucose (09/13/2020 4:36 PM PDT) + +---------+ + + + | Component | Value | Ref Range | Performed | Pathologist | | | | | At | Signature | + +---------+ + + + | Glucose, | 152 (H) | 70 - 109 mg/dL | [facility] | | | POC | | | [...] [address] | [place] | [phone] | | [facility] | | [address] | | | - LABORATORY | | | | + + + + + Hemoglobin and Hematocrit (09/13/2020 2:09 PM PDT) + + + + + + | Component | Value | Ref Range | Performed | Pathologist | | | | | At | Signature | + + + + + + | Hematocrit | 30.8 (L) | 40.0 - 51.0 % | [facility] | | | | | | [facility] | | | | | | MEDICAL | | | | | | CENTER - | | | | | | LABORATORY | | + + + + + + | Hemoglobin | 10.0 (L) | 13.5 - 18.0 | [facility] [...] + | [facility] | [address] | [place] | [phone] | | [facility] | | [address] | | | - LABORATORY | | | | + + + + + Troponin I (09/13/2020 2:09 PM PDT) + + + + + + | Component | Value | Ref Range | Performed | Pathologist | | | | | At | Signature | + + + + + + | Troponin I | 1.79 ()Comment: | <0.06 ng/mL | [facility] | | | | Comment:Reference | | [facility] | | | | Ranges: 0.00-0.06 = | | MEDICAL | | | | NORMAL >0.06 = | | CENTER - | | | | SUSPICIOUS FOR | | LABORATORY | | | | MYOCARDIAL DAMAGE NOTE: | | | | | | Values greater than | | | | | | 0.78 ng/mL have been | | | | | | shown to be strongly | | | | | | associated with acute | | | | | | myocardial infarction. | | | | | | The [employer] | | | | | | Cardiology (ACC) | | | | | | recommends a decision | | | | | | limit of 0.06 ng/mL for | | | | | | this assay. Results | | | | | | greater than 0.06 can | | | | | | reflect a pre-infarct | | | | | | acute coronary syndrome, | | | | | | but can also reflect | | | | | | myocardial necrosis or | | | | | | injury that is not due | | | | | | to coronary artery | | | | | | disease. Some of these | | | | | | causes are sepsis, | | | | | | hypocolemia, atrial | | | | | | fibrillation, heart | | | | | | failure, pulmonary | | | | | | embolism, myocarditis, | | | | | | myocardial contusion, | | | | | | and renal failure. The | | | | | | diagnosis of myocardial | | | | | | infarction should be | | | | | | based on a combination | | | | | | of the patient's | | | | | | clinical presentation | | | | | | and the clinical | | | | | | laboratory test results | | | | | | (especially serial | | | | | | troponin levels). | | | | | | Consistent with previous | | | | | | results. | | | | + + + + + + + + | Specimen | + + | Blood | + + + + + + + | Performing | Address | City/State/Zipcode | Phone Number | | Organization | | | | + + + + + | [facility] | [address] | [place] | [phone] | | [facility] | | [address] | | | - LABORATORY | | | | + + + + + POC Glucose (09/13/2020 11:52 AM PDT) + +-------+ + + + | Component | Value | Ref Range | Performed | Pathologist | | | | | At | Signature | + +-------+ + + + | Glucose, | 105 | 70 - 109 mg/dL | [facility] | | | POC | | | [...] [address] | [place] | [phone] | | [facility] | | [address] | | | - LABORATORY | | | | + + + + + Troponin I (09/13/2020 7:50 AM PDT) + + + + + + | Component | Value | Ref Range | Performed | Pathologist | | | | | At | Signature | + + + + + + | Troponin I | 2.24 ()Comment: | <0.06 ng/mL | [facility] | | | | Comment:Reference | | [facility] | | | | Ranges: 0.00-0.06 = | | MEDICAL | | | | NORMAL >0.06 = | | CENTER - | | | | SUSPICIOUS FOR | | LABORATORY | | | | MYOCARDIAL DAMAGE NOTE: | | | | | | Values greater than | | | | | | 0.78 ng/mL have been | | | | | | shown to be strongly | | | | | | associated with acute | | | | | | myocardial infarction. | | | | | | The [employer] | | | | | | Cardiology (ACC) | | | | | | recommends a decision | | | | | | limit of 0.06 ng/mL for | | | | | | this assay. Results | | | | | | greater than 0.06 can | | | | | | reflect a pre-infarct | | | | | | acute coronary syndrome, | | | | | | but can also reflect | | | | | | myocardial necrosis or | | | | | | injury that is not due | | | | | | to coronary artery | | | | | | disease. Some of these | | | | | | causes are sepsis, | | | | | | hypocolemia, atrial | | | | | | fibrillation, heart | | | | | | failure, pulmonary | | | | | | embolism, myocarditis, | | | | | | myocardial contusion, | | | | | | and renal failure. The | | | | | | diagnosis of myocardial | | | | | | infarction should be | | | | | | based on a combination | | | | | | of the patient's | | | | | | clinical presentation | | | | | | and the clinical | | | | | | laboratory test results | | | | | | (especially serial | | | | | | troponin levels). | | | | | | Consistent with previous | | | | | | results. | | | | + + + + + + + + | Specimen | + + | Blood | + + + + + + + | Performing | Address | City/State/Zipcode | Phone Number | | Organization | | | | + + + + + | [facility] | [address] | [place] | [phone] | | [facility] | | [address] | | | - LABORATORY | | | | + + + + + POC Glucose (09/13/2020 6:11 AM PDT) + +---------+ + + + | Component | Value | Ref Range | Performed | Pathologist | | | | | At | Signature | + +---------+ + + + | Glucose, | 117 (H) | 70 - 109 mg/dL | [facility] | | | POC [...] | + + + + + | [facility] | [address] | [place] | [phone] | | [facility] | | [address] | | | - LABORATORY | | | | + + + + + ECG 12 lead (09/13/2020 6:07 AM PDT) + + + + + [...] + + + + | P-R | 176 | ms | [facility] | | | INTERVAL | | | | | + + + + + + | QRS | 94 | ms | [facility] | | | DURATION | | | | | + + + + + + | Q-T | 434 | ms | [facility] | | | INTERVAL | | | | | + + + + + + | Q-T | 494 | ms | [facility] | | | INTERVAL | | | | | | (CORRECTED) | | | | | + + + + + + | P WAVE AXIS | 44 | degrees | [facility] | | + + + + + + | QRS AXIS | 19 | degrees | [facility] | | + + + + + + | T AXIS | 115 | degrees | [facility] | | + + + + + + | INTERPRETAT | Normal sinus rhythmLow | | [facility] | | | ION TEXT | voltage QRSST & T wave | | | | | | abnormality, consider | | | | | | anterior ischemiaLong | | | | | | QTcAbnormal ECGWhen | | | | | | compared with ECG of | | | | | | 12-SEP-2020 02:50,T wave | | | | | | inversion in Lateral | | | | | | leads is no longer | | | | | | presentConfirmed by | | | | | | AYAH RON MD ([id number]) | | | | | | on 09/13/2020 5:07:53 PM | | | | | | | [...] + +---------+ + + Renal Function Panel (09/13/2020 2:56 AM PDT) + + + + + + | Component | Value | Ref Range | Performed | Pathologist | | | | | At | Signature | + + + + + + | Na | 135 (L) | 136 - 145 | [facility] | | | | | mmol/L | [facility] | | | | | | MEDICAL | | | | | | CENTER - | | | | | | LABORATORY | | + + + + + + | K | 4.6 | 3.4 - 5.1 | [facility] | | | | | mmol/L | [facility] | | | | | | MEDICAL | | | | | | CENTER - | | | | | | LABORATORY | | + + + + + + | Cl | 100 | 98 - 107 mmol/L | [facility] | | | | | | [facility] | | | | | | MEDICAL | | | | | | CENTER - | | | | | | LABORATORY | | + + + + + + | CO2 | 32 (H) | 20 - 31 mmol/L | [facility] | | | | | | [facility] | | | | | | MEDICAL | | | | | | CENTER - | | | | | | LABORATORY | | + + + + + + | Anion Gap | 3 | 3 - 16 mmol/L | [facility] | [facility] | | | [facility] - | | | | | | LABORATORY | | + + + + + + | Glucose | 118 (H) | 60 - 106 mg/dL | [facility] | | [facility] | [facility] | | | | | [facility] - | | | | | | LABORATORY | | + + + + + + | BUN | 28 (H) | 9 - 23 mg/dL | [facility] | | | | | | [facility] | | | | | | [facility] | | | | | | [facility] - | | | | | | LABORATORY | | + + + + + + | Creatinine | 3.71 (H) | 0.70 - 1.30 | [facility] | | | | | mg/dL | [facility] | [facility] | [facility] | | | | | | C[facility] - | | | | | | LABORATORY | | + + + + + + | eGFR, | 16 (L)Comment: | >=60 | [facility] | | | non- | GLOMERULAR FILTRATION | mL/min/1.73m2 | [facility] | | | [place] | RATE,ESTIMATED | | MEDICAL | | | | mL/min/1.31n7Ulhk than | | CENTER - | | | | 60 Chronic kidney | | LABORATORY | | | | disease,if found over a | | | | | | 3-month period.Less than | | | | | | 15 Kidney failure | | | | + + + + + + | eGFR, | 19 (L)Comment: | >=60 | [facility] | | | | GLOMERULAR FILTRATION | mL/min/1.73m2 | [facility] | | | [place] | RATE,ESTIMATED | | MEDICAL | | | | mL/min/[id number] than | | CENTER - | | | | 60 Chronic kidney | | LABORATORY | | | | disease,if found over a | | | | | | 3-month period.Less than | | | | | | 15 Kidney failure | | | | + + + + + + | Calcium | 8.6 (L) | 8.7 - 10.4 | [facility] | | | | | mg/dL | [facility] | [facility] | [facility] | [facility] | | | | | | C[facility] - | | | | | | LABORATORY | | + + + + + + | Albumin | 3.4 | 3.2 - 4.8 g/dL | [facility] | | | | | | [facility] | | | [facility] | [facility] | | | | | | [facility] - | | | | | | LABORATORY | | + + + + + + | Phosphorus | 4.6 | 2.4 - 5.1 mg/dL | [facility] | | [facility] | [facility] | | | | | | [facility] | | | | | | C[facility] - | | | | | | LABORATORY | | + + + + + + | BUN/Creatin | 7.5 | | [facility] | | | ine [...] + | [facility] | [address] | [place] | [phone] | | [facility] | | [address] | | | - LABORATORY | | | | + + + + + Troponin I (09/13/2020 2:56 AM PDT) + + + + + + | Component | Value | Ref Range | Performed | Pathologist | | | | | At | Signature | + + + + + + | Troponin I | 3.25 ()Comment: | <0.06 ng/mL | [facility] | | | | Comment:Reference | | [facility] | | | | Ranges: 0.00-0.06 = | | MEDICAL | | | | NORMAL >0.06 = | | CENTER - | | | | SUSPICIOUS FOR | | LABORATORY | | | | MYOCARDIAL DAMAGE NOTE: | | | | | | Values greater than | | | | | | 0.78 ng/mL have been | | | | | | shown to be strongly | | | | | | associated with acute | | | | | | myocardial infarction. | | | | | | The [employer] | | | | | | Cardiology ([employer]) | | | | | | recommends a decision | | | | | | limit of 0.06 ng/mL for | | | | | | this assay. Results | | | | | | greater than 0.06 can | | | | | | reflect a pre-infarct | | | | | | acute coronary syndrome, | | | | | | but can also reflect | | | | | | myocardial necrosis or | | | | | | injury that is not due | | | | | | to coronary artery | | | | | | disease. Some of these | | | | | | causes are sepsis, | | | | | | hypocolemia, atrial | | | | | | fibrillation, heart | | | | | | failure, pulmonary | | | | | | embolism, myocarditis, | | | | | | myocardial contusion, | | | | | | and renal failure. The | | | | | | diagnosis of myocardial | | | | | | infarction should be | | | | | | based on a combination | | | | | | of the patient's | | | | | | clinical presentation | | | | | | and the clinical | | | | | | laboratory test results | | | | | | (especially serial | | | | | | troponin levels). | | | | | | Critical Result called | | | | | | to and read back by Lauryn Bashir | | | | | Nestor Villareal RN on | | | | | | 09/13/2020 at 3:36 AM | | | | | | PDT by Khalif Ortiz. | | | | + + + + + + + + | Specimen | + + | Blood | + + + + + + + | Performing | Address | City/State/Zipcode | Phone Number | | Organization | | | | + + + + + | [facility] | [address] | [place] | [phone] | | [facility] | | [address] | | | - LABORATORY | | | | + + + + + B Type Natriuretic Peptide (09/13/2020 2:56 AM PDT) + + + + + + | Component | Value | Ref Range | Performed | Pathologist | | | | | At | Signature | + + + + + + | BNP | 2,775 (H)Comment: New | <100 pg/mL | [facility] | | | | method in use as of | | [facility] | | | | January 27, 2019. Check | | MEDICAL | | | | reference range for | | CENTER - | | | | changes.Some analytes | | LABORATORY | | | | show significant | | | | | | variation from the | | | | | | previous method.It may | | | | | | be necessary to set a | | | | | | new baseline for this | | | | | | analyte. | | | | + + + + + + + + | Specimen | + + | Blood | + + + + + + + | Performing | Address | City/State/Zipcode | Phone Number | | Organization | | | | + + + + + | [facility] | [address] | [place] | [phone] | | [facility] | | [address] | | | - LABORATORY | | | | + + + + + Iron and Transferrin (09/13/2020 2:56 AM PDT) + + + + + + | Component | Value | Ref Range | Performed | Pathologist | | | | | At | Signature | + + + + + + | Iron | 31 (L) | 65 - 175 ug/dL | [facility] | | | | | | [facility] | | | | | | MEDICAL | | | | | | CENTER - | | | | | | LABORATORY | | + + + + + + | TRANSFERRIN | 162.0 (L) | 215.0 - 365.0 | [facility] | | | | | mg/dL | [facility] | | | | | | MEDICAL | | | | | | CENTER - | | | | | | LABORATORY | | + + + + + + | TIBC | 227 (L) | 235 - 425 ug/dL | [facility] | | | | | | [facility] | | | | | | MEDICAL | | | | | | CENTER - | | | | | | LABORATORY | | + + + + + + | % | 13.7 (L) | 20.0 - 55.0 % | [facility] | | | SATURATION | | | [facility] | | [...] | + + + + + | [facility] | [address] | [place] | [phone] | | [facility] | | [address] | | | - LABORATORY | | | | + + + + + Ferritin (09/13/2020 2:56 AM PDT) + +---------+ + + + | Component | Value | Ref Range | Performed | Pathologist | | | | | At | Signature | + +---------+ + + + | FERRITIN | 420 (H) | 11 - 307 ng/mL | [facility] | | | | | | ST[facility] [...] | + + + + + | [facility] | [address] | [place] | [phone] | | [facility] | | [address] | | | - LABORATORY | | | | + + + + + CBC no Differential (09/13/2020 2:55 AM PDT) + + + + + + | Component | Value | Ref Range | Performed | Pathologist | | | | | At | Signature | + + + + + + | White Blood | 7.1 | 4.0 - 11.0 K/uL | [facility] | | | Cells | | | [facility] | | | | | | MEDICAL | | | | | | CENTER - | | | | | | LABORATORY | | + + + + + + | Red Blood | 3.06 (L) | 4.30 - 5.70 | [facility] | | | Cells | | M/uL | . [facility] | | | | | | MEDICAL | | | | | | CENTER - | | | | | | LABORATORY | | + + + + + + | Hemoglobin | 8.8 (L) | 13.5 - 18.0 | [facility] | | | | | g/dL | [facility] | | | | | | MEDICAL | | | | | | CENTER - | | | | | | LABORATORY | | + + + + + + | Hematocrit | 27.4 (L) | 40.0 - 51.0 % | [facility] | | | | | | [facility] | | | | | | MEDICAL | | | | | | CENTER - | | | | | | LABORATORY | | + + + + + + | MCV | 89.5 | 83.0 - 101.0 fL | [facility] | | | | | | [facility] | | | | | | MEDICAL | | | | | | CENTER - | | | | | | LABORATORY | | + + + + + + | MCH | 28.8 | 28.0 - 35.0 pg | [facility] | | | | | | [facility] | | | | | | MEDICAL | | | | | | CENTER - | | | | | | LABORATORY | | + + + + + + | MCHC | 32.1 | 32.0 - 36.0 | [facility] | | | | | g/dL | [facility] | | | | | | MEDICAL | | | | | | CENTER - | | | | | | LABORATORY | | + + + + + + | RDW-CV | 15.1 (H) | <15.0 % | [facility] | | | | | | [facility] | | | | | | MEDICAL | | | | | | CENTER - | | | | | | LABORATORY | | + + + + + + | RDW-SD | 48.5 (H) | 35.1 - 46.3 fL | [facility] | | | | | | [facility] | | | | | | MEDICAL | | | | | | CENTER - | | | | | | LABORATORY | | + + + + + + | Platelet | 212 | 140 - 440 K/uL | [facility] | | | Count | | | [facility] | | | | | | MEDICAL | | | | | | CENTER - | | | | | | LABORATORY | | + + + + + + | MPV | 10.1 | 6.5 - 12.4 fL | [facility] | | | | | | [facility] | | | | | | MEDICAL | | | | | | CENTER - | | | | | | LABORATORY | | + + + + + + | % nRBC | 0 | 0 - 2 per 100 | [facility] | | | | | WBCs | [facility] | | | | | | MEDICAL | | | | | | CENTER - | | | | | | LABORATORY | | + + + + + + | Absolute | 0.00 | 0.00 - 0.01 | [facility] | | | nRBC | | K/uL | [facility] | | [...] [address] | [place] | [phone] | | [facility] | | [address] | | | - LABORATORY | | | | + + + + + POC Glucose (09/13/2020 12:14 AM PDT) + +---------+ + + + | Component | Value | Ref Range | Performed | Pathologist | | | | | At | Signature | + +---------+ + + + | Glucose, | 119 (H) | 70 - 109 mg/dL | [facility] | | | POC [...] + | [facility] | [address] | [place] | [phone] | | [facility] | | [address] | | | - LABORATORY | | | | + + + + + Hemoglobin and Hematocrit (09/12/2020 8:44 PM PDT) + + + + + + | Component | Value | Ref Range | Performed | Pathologist | | | | | At | Signature | + + + + + + | Hematocrit | 26.7 (L) | 40.0 - 51.0 % | [facility] | | | | | | [facility] | | | | | | MEDICAL | | | | | | CENTER - | | | | | | LABORATORY | | + + + + + + | Hemoglobin | 8.7 (L) | 13.5 - 18.0 | [facility] | | | | | g/dL | [facility] | | | | | | MEDICAL [...] [address] | [place] | [phone] | | [facility] | | [address] | | | - LABORATORY | | | | + + + + + Troponin I (09/12/2020 8:44 PM PDT) + + + + + + | Component | Value | Ref Range | Performed | Pathologist | | | | | At | Signature | + + + + + + | Troponin I | 2.53 ()Comment: | <0.06 ng/mL | [facility] | | | | Comment:Reference | | [facility] | | | | Ranges: 0.00-0.06 = | | MEDICAL | | | | NORMAL >0.06 = | | CENTER - | | | | SUSPICIOUS FOR | | LABORATORY | | | | MYOCARDIAL DAMAGE NOTE: | | | | | | Values greater than | | | | | | 0.78 ng/mL have been | | | | | | shown to be strongly | | | | | | associated with acute | | | | | | myocardial infarction. | | | | | | The [employer] | | | | | | Cardiology (ACC) | | | | | | recommends a decision | | | | | | limit of 0.06 ng/mL for | | | | | | this assay. Results | | | | | | greater than 0.06 can | | | | | | reflect a pre-infarct | | | | | | acute coronary syndrome, | | | | | | but can also reflect | | | | | | myocardial necrosis or | | | | | | injury that is not due | | | | | | to coronary artery | | | | | | disease. Some of these | | | | | | causes are sepsis, | | | | | | hypocolemia, atrial | | | | | | fibrillation, heart | | | | | | failure, pulmonary | | | | | | embolism, myocarditis, | | | | | | myocardial contusion, | | | | | | and renal failure. The | | | | | | diagnosis of myocardial | | | | | | infarction should be | | | | | | based on a combination | | | | | | of the patient's | | | | | | clinical presentation | | | | | | and the clinical | | | | | | laboratory test results | | | | | | (especially serial | | | | | | troponin levels). | | | | | | Critical Result called | | | | | | to and read back by Lauryn | | | | | | Nestor Villareal RN on | | | | | | 09/12/2020 at 9:17 PM | | | | | | PDT by Andrez Crowe. | | | | | | | [...] [address] | [place] | [phone] | | [facility] | | [address] | | | - LABORATORY | | | | + + + + + Troponin I (09/12/2020 3:04 PM PDT) + + + + + + | Component | Value | Ref Range | Performed | Pathologist | | | | | At | Signature | + + + + + + | Troponin I | 1.98 ()Comment: | <0.06 ng/mL | [facility] | | | | Comment:Reference | | [facility] | | | | Ranges: 0.00-0.06 = | | MEDICAL | | | | NORMAL >0.06 = | | CENTER - | | | | SUSPICIOUS FOR | | LABORATORY | | | | MYOCARDIAL DAMAGE NOTE: | | | | | | Values greater than | | | | | | 0.78 ng/mL have been | | | | | | shown to be strongly | | | | | | associated with acute | | | | | | myocardial infarction. | | | | | | [employer] | | | | | | [employer] ([employer]) | | | | | | recommends a decision | | | | | | limit of 0.06 ng/mL for | | | | | | this assay. Results | | | | | | greater than 0.06 can | | | | | | reflect a pre-infarct | | | | | | acute coronary syndrome, | | | | | | but can also reflect | | | | | | myocardial necrosis or | | | | | | injury that is not due | | | | | | to coronary artery | | | | | | disease. Some of these | | | | | | causes are sepsis, | | | | | | hypocolemia, atrial | | | | | | fibrillation, heart | | | | | | failure, pulmonary | | | | | | embolism, myocarditis, | | | | | | myocardial contusion, | | | | | | and renal failure. The | | | | | | diagnosis of myocardial | | | | | | infarction should be | | | | | | based on a combination | | | | | | of the patient's | | | | | | clinical presentation | | | | | | and the clinical | | | | | | laboratory test results | | | | | | (especially serial | | | | | | troponin levels). | | | | | | Critical Result called | | | | | | to and read back by | | | | | | Christie Rodriguez RN | | | | | | on 09/12/2020 at 4:10 PM | | | | | | PDT by Andrez Crowe. | | | | | | | | | | + + + + + + + + | Specimen | + + | Blood | + + + + + + + | Performing | Address | City/State/Zipcode | Phone Number | | Organization | | | | + + + + + | [facility] | [address] | [place] | [phone] | | [facility] | | [address] | | | - LABORATORY | | | | + + + + + Troponin I (09/12/2020 8:37 AM PDT) + + + + + + | Component | Value | Ref Range | Performed | Pathologist | | | | | At | Signature | + + + + + + | Troponin I | 0.93 ()Comment: | <0.06 ng/mL | [facility] | | | | Comment:Reference | | [facility] | | | | Ranges: 0.00-0.06 = | | MEDICAL | | | | NORMAL >0.06 = | | CENTER - | | | | SUSPICIOUS FOR | | LABORATORY | | | | MYOCARDIAL DAMAGE NOTE: | | | | | | Values greater than | | | | | | 0.78 ng/mL have been | | | | | | shown to be strongly | | | | | | associated with acute | | | | | | myocardial infarction. | | | | | | [employer] | | | | | | Cardiology ([employer]) | | | | | | recommends a decision | | | | | | limit of 0.06 ng/mL for | | | | | | this assay. Results | | | | | | greater than 0.06 can | | | | | | reflect a pre-infarct | | | | | | acute coronary syndrome, | | | | | | but can also reflect | | | | | | myocardial necrosis or | | | | | | injury that is not due | | | | | | to coronary artery | | | | | | disease. Some of these | | | | | | causes are sepsis, | | | | | | hypocolemia, atrial | | | | | | fibrillation, heart | | | | | | failure, pulmonary | | | | | | embolism, myocarditis, | | | | | | myocardial contusion, | | | | | | and renal failure. The | | | | | | diagnosis of myocardial | | | | | | infarction should be | | | | | | based on a combination | | | | | | of the patient's | | | | | | clinical presentation | | | | | | and the clinical | | | | | | laboratory test results | | | | | | (especially serial | | | | | | troponin levels). | | | | | | Critical Result called | | | | | | to and read back by | | | | | | Christie Rodriguez RN | | | | | | on 09/12/2020 at 9:23 | | | | | | AM PDT by Tristen Reza | | | | | | Marija. | | | | + + + + + + + + | Specimen | + + | Blood | + + + + + + + | Performing | Address | City/State/Zipcode | Phone Number | | Organization | | | | + + + + + | [facility] | [address] | [place] | [phone] | | [facility] | | [address] | | | - LABORATORY | | | | + + + + + Red Blood Cells (PRBC) - Crossmatch (09/12/2020 6:56 AM PDT) + + + + + + | Component | Value | Ref Range | Performed | Pathologist | | | | | At | Signature | + + + + + + | Product | [id number] | | [facility] | | | Code | | | [facility] | | | | | | MEDICAL | | | | | | CENTER - | | | | | | BLOOD BANK | | + + + + + + | UNIT # | [id number] | | [facility] | | | | | | [facility] | | | | | | MEDICAL | | | | | | CENTER - | | | | | | BLOOD BANK | | + + + + + + | UNIT ABO | B | | [facility] | | | | | | [facility] | | | | | | MEDICAL | | | | | | CENTER - | | | | | | BLOOD BANK | | + + + + + + | UNIT RH | NEG | | [facility] | | | | | | [facility] | | | | | | MEDICAL | | | | | | CENTER - | | | | | | BLOOD BANK | | + + + + + + | CROSSMATCH | Compatible | | [facility] | | | INTERP | | | [facility] | | | | | | MEDICAL | | | | | | CENTER - | | | | | | BLOOD BANK | | + + + + + + | Unit Status | Issued | | [facility] | | | | | | [facility] | | | | | | MEDICAL | | | | | | CENTER - | | | | | | BLOOD BANK | | + + + + + + | Blood | [id number] | | [facility] | | | Product | | | [facility] | | | Expiration | | | MEDICAL | | | Date and | | | CENTER - | | | Time | | | BLOOD BANK | | + + + + + + | Product | 1700 | | [facility] | | | Blood Type | | | [facility] | | | Barcode | | | MEDICAL | | | | | | CENTER - | | | | | | BLOOD BANK | | + + + + + + + + | Specimen | + + | | + + + + + + + | Performing | Address | City/State/Zipcode | Phone Number | | Organization | | | | + + + + + | [facility] | [address] | [place] | | | [facility] | | [address] | | | - BLOOD BANK | | | | + + + + + Red Blood Cells (PRBC) - Crossmatch (09/12/2020 5:48 AM PDT) + + + + + + | Component | Value | Ref Range | Performed | Pathologist | | | | | At | Signature | + + + + + + | Product | [id number] | | [facility] | | | Code | | | [facility] | | | | | | MEDICAL | | | | | | CENTER - | | | | | | BLOOD BANK | | + + + + + + | UNIT # | [id number] | | [facility] | | | | | | [facility] | | | | | | MEDICAL | | | | | | CENTER - | | | | | | BLOOD BANK | | + + + + + + | UNIT ABO | B | | [facility] | | | | | | [facility] | | | | | | MEDICAL | | | | | | CENTER - | | | | | | BLOOD BANK | | + + + + + + | UNIT RH | NEG | | [facility] | | | | | | [facility] | | | | | | MEDICAL | | | | | | CENTER - | | | | | | BLOOD BANK | | + + + + + + | CROSSMATCH | Compatible | | [facility] | | | INTERP | | | [facility] | | | | | | MEDICAL | | | | | | CENTER - | | | | | | BLOOD BANK | | + + + + + + | Unit Status | Crossmatched | | [facility] | | | | | | [facility] | | | | | | MEDICAL | | | | | | CENTER - | | | | | | BLOOD BANK | | + + + + + + | Blood | [id number] | | [facility] | | | Product | | | [facility] | | | Expiration | | | MEDICAL | | | Date and | | | CENTER - | | | Time | | | BLOOD BANK | | + + + + + + | Product | 1700 | | [facility] | | | Blood Type | | | [facility] | | | Barcode | | | MEDICAL | | | | | | CENTER - | | | | | | BLOOD BANK | | + + + + + + + + | Specimen | + + | | + + + + + + + | Performing | Address | City/State/Zipcode | Phone Number | | Organization | | | | + + + + + | [facility] | [address] | [place], [place] | | | [facility] | | [address] | | | - BLOOD BANK | | | | + + + + + Troponin I (09/12/2020 4:30 AM PDT) + + + + + + | Component | Value | Ref Range | Performed | Pathologist | | | | | At | Signature | + + + + + + | Troponin I | 0.48 (H)Comment: | <0.06 ng/mL | [facility] | | | | Comment:Reference | | [facility] | | | | Ranges: 0.00-0.06 = | | MEDICAL | | | | NORMAL >0.06 = | | CENTER - | | | | SUSPICIOUS FOR | | LABORATORY | | | | MYOCARDIAL DAMAGE NOTE: | | | | | | Values greater than | | | | | | 0.78 ng/mL have been | | | | | | shown to be strongly | | | | | | associated with acute | | | | | | myocardial infarction. | | | | | | [employer] | | | | | | [employer]iology ([employer]) | | | | | | recommends a decision | | | | | | limit of 0.06 ng/mL for | | | | | | this assay. Results | | | | | | greater than 0.06 can | | | | | | reflect a pre-infarct | | | | | | acute coronary syndrome, | | | | | | but can also reflect | | | | | | myocardial necrosis or | | | | | | injury that is not due | | | | | | to coronary artery | | | | | | disease. Some of these | | | | | | causes are sepsis, | | | | | | hypocolemia, atrial | | | | | | fibrillation, heart | | | | | | failure, pulmonary | | | | | | embolism, myocarditis, | | | | | | myocardial contusion, | | | | | | and renal failure. The | | | | | | diagnosis of myocardial | | | | | | infarction should be | | | | | | based on a combination | | | | | | of the patient's | | | | | | clinical presentation | | | | | | and the clinical | | | | | | laboratory test results | | | | | | (especially serial | | | | | | troponin levels). | | | | + + + + + + + + | Specimen | + + | Blood | + + + + + + + | Performing | Address | City/State/Zipcode | Phone Number | | Organization | | | | + + + + + | [facility] | [address] | [place] | [phone] | | [facility] | | [address] | | | - LABORATORY | | | | + + + + + Magnesium (09/12/2020 4:30 AM PDT) + +-------+ + + + | Component | Value | Ref Range | Performed | Pathologist | | | | | At | Signature | + +-------+ + + + | Magnesium | 2.0 | 1.6 - 2.6 mg/dL | [facility] | | | | [...] [address] | [place] | [phone] | | [facility] | | [address] | | | - LABORATORY | | | | + + + + + CBC no Differential (09/12/2020 4:30 AM PDT) + + + + + + | Component | Value | Ref Range | Performed | Pathologist | | | | | At | Signature | + + + + + + | White Blood | 7.3 | 4.0 - 11.0 K/uL | [facility] | | | Cells | | | [facility] | | | | | | MEDICAL | | | | | | CENTER - | | | | | | LABORATORY | | + + + + + + | Red Blood | 2.96 (L) | 4.30 - 5.70 | [facility] | | | Cells | | M/uL | [facility] | | | | | | MEDICAL | | | | | | CENTER - | | | | | | LABORATORY | | + + + + + + | Hemoglobin | 8.5 (L) | 13.5 - 18.0 | [facility] | | | | | g/dL | [facility] | | | | | | MEDICAL | | | | | | CENTER - | | | | | | LABORATORY | | + + + + + + | Hematocrit | 26.8 (L) | 40.0 - 51.0 % | [facility] | | | | | | [facility] | | | | | | MEDICAL | | | | | | CENTER - | | | | | | LABORATORY | | + + + + + + | MCV | 90.5 | 83.0 - 101.0 fL | [facility] | | | | | | [facility] | | | | | | MEDICAL | | | | | | CENTER - | | | | | | LABORATORY | | + + + + + + | MCH | 28.7 | 28.0 - 35.0 pg | [facility] | | | | | | [facility] | | | | | | MEDICAL | | | | | | CENTER - | | | | | | LABORATORY | | + + + + + + | MCHC | 31.7 (L) | 32.0 - 36.0 | [facility] | [...] + + + + | RDW-SD | 47.0 (H) | 35.1 - 46.3 fL | [facility] | | | | | | [facility] | | | | | | MEDICAL | | | | | | CENTER - | | | | | | LABORATORY | | + + + + + + | Platelet | 233 | 140 - 440 K/uL | [facility] | | | Count | | | [facility] | | | | | | MEDICAL | | | | | | CENTER - | | | | | | LABORATORY | | + + + + + + | MPV | 10.3 | 6.5 - 12.4 fL | [facility] | | | | | | [facility] | | | | | | MEDICAL | | | | | | CENTER - | | | | | | LABORATORY | | + + + + + + | % nRBC | 0 | 0 - 2 per 100 | [facility] | | | | | WBCs | [facility] | | | | | | MEDICAL | | | | | | CENTER - | | | | | | LABORATORY | | + + + + + + | Absolute | 0.00 | 0.00 - 0.01 | [facility] | | | nRBC | | K/uL | [facility] | [...] [address] | [place] | [phone] | | [facility] | | [address] | | | - LABORATORY | | | | + + + + + Basic Metabolic Panel (09/12/2020 4:30 AM PDT) + + + + + + | Component | Value | Ref Range | Performed | Pathologist | | | | | At | Signature | + + + + + + | Na | 136 | 136 - 145 | [facility] | | | | | mmol/L | [facility] | | | | | | MEDICAL | | | | | | CENTER - | | | | | | LABORATORY | | + + + + + + | K | 3.9 | 3.4 - 5.1 | [facility] | | | | | mmol/L | [facility] | | | | | | MEDICAL | | | | | | CENTER - | | | | | | LABORATORY | | + + + + + + | Cl | 100 | 98 - 107 mmol/L | [facility] | | | | | | [facility] | | | | | | MEDICAL | | | | | | CENTER - | | | | | | LABORATORY | | + + + + + + | CO2 | 31 | 20 - 31 mmol/L | [facility] | | | | | | [facility] | | | | | | MEDICAL | | | | | | CENTER - | | | | | | LABORATORY | | + + + + + + | Anion Gap | 5 | 3 - 16 mmol/L | [facility] | [facility] | [facility] | [facility] | [facility] | [facility] - | | | | | | LABORATORY | | + + + + + + | Glucose | 138 (H) | 60 - 106 mg/dL | [facility] | [facility] | [facility] | | | | | | [facility] - | | | | | | LABORATORY | | + + + + + + | BUN | 19 | 9 - 23 mg/dL | [facility] | | [facility] | [facility] | | | | | | [facility] - | | | | | | LABORATORY | | + + + + + + | Creatinine | 2.75 (H) | 0.70 - 1.30 | [facility] | | | | | mg/dL | [facility] | [facility] | | [facility] | [facility] | | | | | | CENTER - | | | | | | LABORATORY | | + + + + + + | eGFR, | 22 (L)Comment: | >=60 | [facility] | | | non- | GLOMERULAR FILTRATION | mL/min/1.73m2 | [facility] | | | [place] | RATE,ESTIMATED | | MEDICAL | | | | mL/min/1.01j0Zxoh than | | CENTER - | | | | 60 Chronic kidney | | LABORATORY | | | | disease,if found over a | | | | | | 3-month period.Less than | | | | | | 15 Kidney failure | | | | + + + + + + | eGFR, | 27 (L)Comment: | >=60 | [facility] | | | | GLOMERULAR FILTRATION | mL/min/1.73m2 | [facility] | | | [place] | RATE,ESTIMATED | | MEDICAL | | | | mL/min/1.40r0Llxo than | | CENTER - | | | | 60 Chronic kidney | | LABORATORY | | | | disease,if found over a | | | | | | 3-month period.Less than | | | | | | 15 Kidney failure | | | | + + + + + + | Calcium | 8.5 (L) | 8.7 - 10.4 | [facility] | | | | | mg/dL | [facility] | | [facility] | | | [facility] | | | | | | CENTER - | | | | | | LABORATORY | | + + + + + + | BUN/Creatin | 6.9 | | [facility] | | | ine [...] + | [facility] | [address] | [place] | [phone] | | [facility] | | [id number] | | | - LABORATORY | | | | + + + + + Type and Screen (09/12/2020 4:30 AM PDT) + + + + + + | Component | Value | Ref Range | Performed | Pathologist | | | | | At | Signature | + + + + + + | ABO | B | | [facility] | | | | [facility] | | | | | | [facility] | | | | | | CENTER - | | | | | | BLOOD BANK | | + + + + + + | Rh Type | Negative | | [facility] | | | [facility] | | [facility] | [facility] | | | | | | [facility] - | | | | | | BLOOD BANK | | + + + + + + | Antibody | Negative | | [facility] | | | Screen | | | [facility] | | | | | | [facility] | | | | | | CENTER - | | | | | | BLOOD BANK | | + + + + + + + + | Specimen | + + | Blood | + + + + + + + | Performing | Address | City/State/Zipcode | Phone Number | | Organization | | | | + + + + + | [facility] | [address] | [place] | | | [facility] | | [address] | | | - BLOOD BANK | | | | + + + + + ECG 12 lead (09/12/2020 2:50 AM PDT) + + + + + + | Component | Value | Ref Range | Performed | Pathologist | | | | | At | Signature | + + + + + + | VENTRICULAR | 81 | BPM | [facility] | | | RATE EKG | | | | | + + + + + + | ATRIAL RATE | 81 | BPM | [facility] | | + + + + + + | P-R | 194 | ms | [facility] | | | INTERVAL | | | | | + + + + + + | QRS | 98 | ms | [facility] | | | DURATION | | | | | + + + + + + | Q-T | 438 | ms | [facility] | | | INTERVAL | | | | | + + + + + + | Q-T | 508 | ms | [facility] | | | INTERVAL | | | | | | (CORRECTED) | | | | | + + + + + + | P WAVE AXIS | 24 | degrees | [facility] | | + + + + + + | QRS AXIS | 22 | degrees | [facility] | | + + + + + + | T AXIS | 53 | degrees | [facility] | | + + + + + + | INTERPRETAT | Normal sinus rhythmST & | | [facility] | | | ION TEXT | T wave abnormality, | | | | | | consider anterolateral | | | | | | ischemiaLong QTcAbnormal | | | | | | ECGWhen compared with | | | | | | ECG of 03-AUG-2016 | | | | | | 22:45,ST now depressed | | | | | | in Lateral leadsT wave | | | | | | inversion now evident in | | | | | | Anterolateral leadsQTc | | | | | | has lengthenedConfirmed | | | | | | by AYAH RON MD | | | | | | ([id number]) on 09/12/2020 | | | | | | 7:14:13 AM | | | | + + [...] | | | + +---------+ + + Coronavirus (COVID-19) NAAJuan Pablo (09/12/2020 2:49 AM PDT) + + + + + + | Component | Value | Ref Range | Performed | Pathologist | | | | | At | Signature | + + + + + + | SARS-CoV-2, | Not DetectedComment: A | Not Detected | [facility] | | | [facility] | Negative test result | | [facility] | | | (COVID-19) | does not preclude | | MEDICAL | | | | COVID-19 infection and | | CENTER - | | | | should not be used as | | LABORATORY | | | | the sole basis for | | | | | | treatment or other | | | | | | patient management | | | | | | decisions. Consider | | | | | | early retesting of | | | | | | negative patients with | | | | | | clinical features | | | | | | suspicious for COVID-19 | | | | | | infection.This assay has | | | | | | been cleared for use | | | | | | under an FDA Emergency | | | | | | Use Authorization. This | | | | | | test is used for | | | | | | clinical purposes. It | | | | | | should not be regarded | | | | | | as investigational or | | | | | | for research. This | | | | | | laboratory is certified | | | | | | under the Clinical | | | | | | Laboratory Improvement | | | | | | Amendments (CLIA) as | | | | | | qualified to perform | | | | | | high complexity testing. | | | | | | This test has been | | | | | | validated in accordance | | | | | | with the FDA's Guidance | | | | | | Document "Policy for | | | | | | Diagnostics Testing in | | | | | | Laboratories Certified | | | | | | to Perform High | | | | | | Complexity Testing under | | | | | | CLIA prior to Emergency | | | | | | Use Authorization for | | | | | | Coronavirus Disease-2019 | | | | | | during the Public | | | | | | Health Emergency" issued | | | | | | on January 29, 2020. | | | | | | FDA independent review | | | | | | of this validation is | | | | | | pending. This test is | | | | | | only authorized for the | | | | | | duration of time the | | | | | | declaration that | | | | | | circumstances exist | | | | | | justifying the | | | | | | authorization of the | | | | | | emergency use of in | | | | | | vitro diagnostic tests | | | | | | for detection of | | | | | | SARS-CoV-2 virus and/or | | | | | | diagnosis of COVID-19 | | | | | | infection under section | | | | | | 564(b)(1) of the Act, 21 | | | | | | U.S.C. 360bbb-3(b)(1), | | | | | | unless the authorization | | | | | | is terminated or | | | | | | revoked sooner. | | | | + + + + + + + + | Specimen | + + | Tissue - Entire | | nasopharynx (body | | structure) | + + + + + + + | Performing | Address | City/State/Zipcode | Phone Number | | Organization | | | | + + + + + | [facility] | [address] | [place] | [phone] | | [facility] | | [address] | | | - LABORATORY | | | | + + + + + Culture, MRSA (09/12/2020 2:41 AM PDT) + + + + + + | Component | Value | Ref Range | Performed | Pathologist | | | | | At | Signature | + + + + + + | Culture | Negative for MRSA by | | [facility] | | | | chromogenic agar method. | | [facility] | | | | | | MEDICAL | | | | | | CENTER - | | | | | | LABORATORY | | + + + + + + + + | Specimen | + + | Tissue - Both | | anterior nares (body | | structure) | + + + + + + + | Performing | Address | City/State/Zipcode | Phone Number | | Organization | | | | + + + + + | [facility] | [address] | [place] | [phone] | | [facility] | | [address] | | | - LABORATORY | | | | + + + + + XR Chest 1 Vw (09/11/2020 7:40 PM PDT) + + | Specimen | [...] + | Diagnosis | + + | ACS (acute coronary syndrome) (HCC) - Primary Intermediate coronary syndrome | + + | Gastrointestinal hemorrhage, unspecified gastrointestinal hemorrhage type | + + | ESRD (end stage renal disease) on dialysis (HCC) End stage renal disease | + + | NSTEMI (non-ST elevated myocardial infarction) ([facility]) Acute myocardial infarction, | | subendocardial infarction, episode of care unspecified | + + | Anemia, unspecified type | + + | Acute respiratory failure with hypoxia ([facility]) Acute respiratory failure | + + | CKD (chronic kidney disease) stage 5, GFR less than 15 ml/min ([facility]) Chronic kidney | | disease, Stage V | + + | Acute on chronic systolic congestive heart failure ([facility]) Acute on chronic systolic | | heart failure | + + documented in this encounter Administered Medications + +--------+ +-------+------+------+ | Medication Order | MAR | Action | Dose | Rate | Site | | | Action | Date | | | | + +--------+ +-------+------+------+ | albuterol-ipratropium 2.5-0.5 | Given | 09/15/20 | 3 mLs | | | | mg/3 mL nebulizer solution 3 mL | | 20 8:28 | | | | | 3 mL, Nebulization, RT TID, First | | AM PDT | | | | | dose on Fri09/12/20 at 0900 | | | | | | + +--------+ +-------+------+------+ +-------+ +-------+---+---+ | Given | 09/14/20 | 3 mLs | | | | | 20 9:34 | | | | | | PM PDT | | | | +-------+ +-------+---+---+ | Given | 09/14/20 | 3 mLs | | | | | 20 2:49 | | | | | | PM PDT | | | | +-------+ +-------+---+---+ +---+---+ | | | +---+---+ + +-------+ +-------+---+---+ | aspirin chewable tablet 81 mg | Given | 09/15/20 | 81 mg | | | | 81 mg, Oral, DAILY, First dose on | | 20 8:04 | | | | | 09/15/20 at 0900, Do not | | AM PDT | | | | | give if already taken today., | | | | | | | Post-op/Phase II | | | | | | + +-------+ +-------+---+---+ +---+---+ | | | +---+---+ + +-------+ +-------+---+---+ | atorvaSTATin (LIPITOR) tablet | Given | 09/14/20 | 80 mg | | | | 80 mg 80 mg, Oral, NIGHTLY, | | 20 8:36 | | | | | First dose on Fri09/12/20 at | | PM PDT | | | | | 0300 | | | | | | + +-------+ +-------+---+---+ +-------+ +-------+---+---+ | Given | 09/13/20 | 80 mg | | | | | 20 8:29 | | | | | | PM PDT | | | | +-------+ +-------+---+---+ | Given | 09/12/20 | 80 mg | | | | | 20 9:25 | | | | | | PM PDT | | | | +-------+ +-------+---+---+ +---+---+ | | | +---+---+ + +-------+ + +---+---+ | calcitriol (ROCALTROL) capsule | Given | 09/15/20 | 0.25 mcg | | | | 0.25 mcg 0.25 mcg, Oral, DAILY, | | 20 8:04 | | | | | First dose on Fri09/12/20 at | | AM PDT | | | | | 0900 | | | | | | + +-------+ + +---+---+ +-------+ + +---+---+ | Given | 09/14/20 | 0.25 mcg | | | | | 20 8:33 | | | | | | AM PDT | | | | +-------+ + +---+---+ | Given | 09/13/20 | 0.25 mcg | | | | | 20 8:56 | | | | | | AM PDT | | | | +-------+ + +---+---+ +---+---+ | | | +---+---+ + +-------+ +--------+---+---+ | clopidogrel (PLAVIX) tablet 300 | Given | 09/14/20 | 300 mg | | | | mg 300 mg, Oral, ONCE, Fely | | 20 8:30 | | | | | 20 at 0715, For 1 dose | | AM PDT | | | | + +-------+ +--------+---+---+ +---+---+ | | | +---+---+ + +-------+ +--------+---+---+ | cyanocobalamin (VITAMIN B-12) | Given | 09/12/20 | 1,000 | | | | tablet 1,000 mcg 1,000 mcg, | | 20 1:17 | mcg | | | | Oral, EVERY 14 DAYS, First dose | | PM PDT | | | | | on Fri09/12/20 at 0900 | | | | | | + +-------+ +--------+---+---+ + +---+ | | | + +---+ | dextrose 10% (D10W) infusion | | | at 50 mL/hr, Intravenous, | | | CONTINUOUS PRN, hypoglycemia, | | | Starting Fri09/12/20 at 0239, | | | Start infusion if unable to | | | maintain blood glucose greater | | | than 70 mg/dL after two rounds of | | | hypoglycemia treatment. Recheck | | | blood glucose 30 minutes after | | | starting D10W then at least | | | hourly and PRN until it is | | | discontinued. Call provider to | | | discuss parameters for D10W | | | discontinuation., | | + +---+ | | | + +---+ | dextrose 50% injection 12.5-25 | | | g 12.5-25 g, Intravenous, PRN, | | | Low Blood Sugar, Starting Tue | | | 09/12/20 at 0239, For blood | | | glucose 50-69 mg/dl - give 12.5 g | | | For blood glucose less than 50 | | | mg/dl - give 25 g, | | + +---+ | | | + +---+ + +-------+ +---------+---+---+ | docusate-senna (SENOKOT-S) | Given | 09/12/20 | 2 | | | | 50-8.6 mg per tablet 2 tablet 2 | | 20 11:59 | tablets | | | | tablet, Oral, DAILY, First dose | | AM PDT | | | | | on Fri09/12/20 at 0900 | | | | | | + +-------+ +---------+---+---+ + +---+ | | | + +---+ | docusate-senna (SENOKOT-S) | | | 50-8.6 mg per tablet 2 tablet 2 | | | tablet, Oral, DAILY PRN, | | | Constipation, Starting Wed | | | 09/13/20 at 1010 | | + +---+ | | | + +---+ + +---------+ +--------+-------+---+ | ferric gluconate (FERRLECIT) | New Bag | 09/14/20 | 125 mg | 110 | | | 125 mg in sodium chloride 0.9% | | 20 9:29 | | mL/hr | | | 100 mL IVPB 125 mg, Intravenous, | | PM PDT | | | | | Administer over 1 Hours, | | | | | | | NIGHTLY, First dose on Wed | | | | | | | 09/13/20 at 2100, For 2 doses, | | | | | | | Primary Criteria: Hct less than | | | | | | | 30% AND Fe saturation less than | | | | | | | 25%, Secondary Criteria: | | | | | | | Anticipated poor compliance with | | | | | | | follow-up | | | | | | + +---------+ +--------+-------+---+ +---------+ +--------+-------+---+ | New Bag | 09/13/20 | 125 mg | 110 | | | | 20 9:30 | | mL/hr | | | | PM PDT | | | | +---------+ +--------+-------+---+ +---+---+ | | | +---+---+ + +-------+ +--------+---+---+ | ferrous sulfate tablet 325 mg | Given | 09/12/20 | 325 mg | | | | 325 mg, Oral, DAILY WITH | | 20 12:00 | | | | | BREAKFAST, First dose on Fri | | PM PDT | | | | | 09/12/20 at 0800 | | | | | | + +-------+ +--------+---+---+ + +---+ | | | + +---+ | HYDROmorphone (DILAUDID) | | | injection 0.2-0.4 mg 0.2-0.4 mg, | | | Intravenous, EVERY 2 HOURS PRN, | | | Pain, Starting Tu09/12/20 at | | | 1748 | | + +---+ | | | + +---+ + +-------+ +---------+---+ + | insulin lispro (humaLOG | Given | 09/15/20 | 4 Units | | Arm-Left | | KWIKPEN, ADMELOG) injection (pen) | | 20 11:52 | | | Upper | | 0-12 Units Correction Scale: | | AM PDT | | | | | Moderate Dose (MODERATE): Total | | | | | | | Daily Dose 40-80 units, Day/NPO | | | | | | | Blood Glucose (BG) below 150: | | | | | | | (units): 0, Day/NPO BG 150-200: | | | | | | | (units): 2, Day/NPO BG 201-250: | | | | | | | (units): 4, Day/NPO BG 251-300: | | | | | | | (units): 6, Day/NPO BG 301-350: | | | | | | | (units): 8, Day/NPO BG 351-400: | | | | | | | (units): 10, Day/NPO BG above | | | | | | | 400: (units): 12, Night BG below | | | | | | | 150: (units): 0, Night BG | | | | | | | 150-200: (units): 0, Night BG | | | | | | | 201-250: (units): 2, Night BG | | | | | | | 251-300: (units): 4, Night BG | | | | | | | 301-350: (units): 6, Night BG | | | | | | | 351-400: (units): 8, Night BG | | | | | | | above 400: (units): 10, BG above | | | | | | | 400 additional instructions: GIVE | | | | | | | DOSE AND CALL PROVIDER, | | | | | | | Subcutaneous, 4 TIMES DAILY | | | | | | | BEFORE MEALS & NIGHTLY, First | | | | | | | dose (after last modification) on | | | | | | | 09/13/20 at 1630, Use | | | | | | | DAY/NPO DOSE for doses scheduled: | | | | | | | AC, NPO, Daytime [id number] | | | | | | | Use NIGHT DOSE for doses | | | | | | | scheduled: HS, Nighttime | | | | | | | [phone] If the BG is not | | | | | | | checked before the patient starts | | | | | | | eating, do not give correction | | | | | | | insulin., | | | | | | + +-------+ +---------+---+ + +-------+ +---------+---+ + | Given | 09/13/20 | 2 Units | | Abdomen- | | | 20 5:37 | | | LLQ | | | PM PDT | | | | +-------+ +---------+---+ + +---+---+ | | | +---+---+ + +-------+ +-------+---+---+ | isosorbide mononitrate (IMDUR) | Given | 09/12/20 | 30 mg | | | | ER tablet 30 mg 30 mg, Oral, | | 20 1:18 | | | | | DAILY, First dose on Fri09/12/20 | | PM PDT | | | | | at 1315, Tablet may be cut where | | | | | | | scored but do not crush., | | | | | | + +-------+ +-------+---+---+ +---+---+ | | | +---+---+ + +-------+ +-------+---+---+ | isosorbide mononitrate (IMDUR) | Given | 09/15/20 | 60 mg | | | | ER tablet 60 mg 60 mg, Oral, | | 20 8:05 | | | | | DAILY, First dose (after last | | AM PDT | | | | | modification) on Fri09/13/20 at | | | | | | | 0900, Tablet may be cut where | | | | | | | scored but do not crush., | | | | | | + +-------+ +-------+---+---+ +-------+ +-------+---+---+ | Given | 09/14/20 | 60 mg | | | | | 20 8:33 | | | | | | AM PDT | | | | +-------+ +-------+---+---+ | Given | 09/13/20 | 60 mg | | | | | 20 8:56 | | | | | | AM PDT | | | | +-------+ +-------+---+---+ +---+---+ | | | +---+---+ + +---------+ +---+ +---+ | lactated ringers (LR) infusion | New Bag | 09/12/20 | | 50 mL/hr | | | at 50 mL/hr, Intravenous, | | 20 4:03 | | | | | CONTINUOUS, Starting 09/12/20 | | AM PDT | | | | | at 0300 | | | | | | + +---------+ +---+ +---+ + +---+ | | | + +---+ | lidocaine (PF) 1% injection 1 | | | mL 1 mL, Intradermal, DIALYSIS - | | | PRN, cannulation, Starting Wed | | | 09/13/20 at 0651 | | + +---+ | | | + +---+ + +-------+ +------+---+---+ | metoclopramide (REGLAN) 5 mg/mL | Given | 09/14/20 | 5 mg | | | | injection 5 mg 5 mg, | | 20 11:00 | | | | | Intravenous, ONCE, [facility] 09/14/20 | | AM PDT | | | | | at 1015, For 1 dose, Dose | | | | | | | adjusted per Renal Dose | | | | | | | Adjustment Pharmacy Protocol | | | | | | | Protect from light., | | | | | | + +-------+ +------+---+---+ + +---+ | | | + +---+ | nitroglycerin (NITROSTAT) SL | | | tablet 0.4 mg 0.4 mg, | | | Sublingual, EVERY 5 MIN PRN, | | | Chest pain, Starting 09/12/20 | | | at 1653, Maximum of 3 doses in | | | 15 minutes., | | + +---+ | | | + +---+ + +-------+ +-------+---+---+ | oxyCODONE (ROXICODONE) tablet | Given | 09/15/20 | 15 mg | | | | 15 mg 15 mg, Oral, EVERY 6 | | 20 11:56 | | | | | HOURS, First dose on Fri09/12/20 | | AM PDT | | | | | at 0600 | | | | | | + +-------+ +-------+---+---+ +-------+ +-------+---+---+ | Given | 09/15/20 | 15 mg | | | | | 20 6:22 | | | | | | AM PDT | | | | +-------+ +-------+---+---+ | Given | 09/14/20 | 15 mg | | | | | 20 11:30 | | | | | | PM PDT | | | | +-------+ +-------+---+---+ +---+---+ | | | +---+---+ + +---------+ +---------+ +---+ | pantoprazole (PROTONIX) 0.8 | New Bag | 09/12/20 | 8 mg/hr | 10 mL/hr | | | mg/mL in sodium chloride 0.9% 100 | | 20 3:58 | | | | | mL infusion 8 mg/hr (10 mL/hr), | | AM PDT | | | | | at 10 mL/hr, Intravenous, | | | | | | | CONTINUOUS, Starting 09/12/20 | | | | | | | at 0330, Indication: Bleed, | | | | | | | upper GI | | | | | | + +---------+ +---------+ +---+ +---+---+ | | | +---+---+ + +-------+ +-------+---+---+ | pantoprazole (PROTONIX) | Given | 09/15/20 | 40 mg | | | | injection 40 mg 40 mg, | | 20 8:05 | | | | | Intravenous, DAILY, First dose on | | AM PDT | | | | | 09/12/20 at 0330, If | | | | | | | reconstituting, mix each 40 mg | | | | | | | vial with 10 mL NS to make 4 | | | | | | | mg/mL., Indication: Bleed, upper | | | | | | | GI | | | | | | + +-------+ +-------+---+---+ +-------+ +-------+---+---+ | Given | 10/15/20 | 40 mg | | | | | 20 8:33 | | | | | | AM PDT | | | | +-------+ +-------+---+---+ | Given | 10/14/20 | 40 mg | | | | | 20 8:56 | | | | | | AM PDT | | | | +-------+ +-------+---+---+ +---+---+ | | | +---+---+ documented in this encounter
--- OUTSIDE RECORDS SUMMARY | ~2020-09-15 | XMS | Encounter Summary ---
Demographics + + + | Address | [address] | | | [place] [address] | + + + | Home Phone [...] Team Providers + +------+ + | Care Tube Maker Name | Role | Phone | [...] + + | 07/30/ | Telephone | [facility] | Brian Orosco MD | Establish Care | | 2019 | | VASCULAR SURGERY | [address] | (Referral) | | | | [address] [place] | [place], [place] | | | | | [place], [place] | [address] | | | | | [address] | [phone] | | | | | [phone] | | | +--------+ + + + [...] transfer the call to a p erikavidixie retread operator was caller made aware that if [...] | | | | | | [place] [address] | | | | | | [phone] | | | | | | | | +--------+ + + + + | 09/19/ | Clinical | Cardiology | | | 2019 | Support | | | | +--------+ + + + + | 10/03/ | Office | Cardiology | Ron Orosco MD | | | 2019 | Visit | | [address] | | | | | | [place] | | | | | | [address] | | | | | | | | +--------+ + + + + | 10/30/ | Virtual | Nephrology | Farrukh Acuna MD | | | 2019 | Office | | [address] | | | | Visit | | [address] [place] | | | | | | [address] | | | | | | | [...]
--- OUTSIDE RECORDS SUMMARY | ~2020-09-15 | XMS | Encounter Summary ---
Demographics + + + | Address | [address] | | | [place] [address] | + + + | Home Phone [...] Team Providers + +------+ + | Care Janitorial Supervisor Name | Role | Phone | + +------+ + | Rahul Silva MD | PCP | | + +------+ + Encounter Details +--------+ + + + + | Date | Type | Department | Care Team | Description | +--------+ + + + + | 11/05/ | Orders Only | [facility] | Farrukh Acuna MD | Essential | | 2019 | | NEPHROLOGY [place] | [address] | hypertension | | | | [address] | [address] [place], [place] | (Primary Dx); Iron | | | | [address] | [address] | deficiency; Anemia | | | | [place], [place] | | of chronic kidney | | | | [address] | | failure, stage 5 | | | | [phone] | | (HCC) | +--------+ + + [...] documented as of this encounter Miscellaneous Notes Addendum Note - Kanwal Sampson Manager Human Resources - 10/05/2019 6:24 PM PST Addended b y: KANWAL SAMPSON on: 10/05/2019 18:42 Modules accepted: Orders Addendum Note - Farrukh Acuna MD - 10/05/2019 6:24 PM PST Addended by: FARRUKH ACUNA on: 12/05/2018 18:31 Modules accepted: Orders documented in this en counter Plan of Treatment +--------+ + + + + | Date | Type | Specialty | Care Team | Description | +--------+ + + + + | 09/19/ | Office | Cardiology | BlasMarch, | | | 2019 | Visit | | [place] | | | | | | [address] [place], | | | | | | [place] [address] | | | | | | [phone] | | | | | | | [...] [place] | | | | | | [address] | | | | | | | | +--------+ + + + + | 10/30/ | Virtual | Nephrology | Farrukh Acuna MD | | | 2019 | Office | | [address] | | | | Visit | | [address] [place], [place] | | | | | | [address] | | | | | | | [...]
--- OUTSIDE RECORDS SUMMARY | ~2020-09-15 | XMS | Encounter Summary ---
Demographics + + + | Address | [address] | | | [place] [address] | + + + | Home Phone [...] Team Providers + +------+ + | Care Stockroom Keeper Name | Role | Phone | [...] + + | 10/19/ | Documentati | [facility] | Simon, | Results (09/22/19) | | 2019 | on | NEPHROLOGY [place] | [facility] | | | | | [address] | Texture Artist | | | | | [address] | | | | | | [place] | | | | | | [address] | | | | | | [phone] | | | +--------+ + + + [...] [place], | | | | | | [place] [address] | | | | | | [phone] | | | | | | | [...] [place] | | | | | | [address] | | | | | | | | +--------+ + + + + | 10/30/ | Virtual | Nephrology | Farrukh Acuna MD | | 2019 | Office | | [address] | | | | Visit | | [address] [place] | | | | | | [address] | | | | | | | [...]
--- OUTSIDE RECORDS SUMMARY | ~2020-09-15 | XMS | Encounter Summary ---
Demographics + + + | Address | [address] | | | [place] [address] | + + + | Home Phone [...] Providers + +------+ + | Care Labor Commissioner Name | Role | Phone | + [...] + + | 03/14/ | Refill | [facility] | Farrukh Acuna MD | Medication Refill | | 2019 | | NEPHROLOGY [place] | [address] | | | | | [address] | [address] [place], [place] | | | | | [address] | [address] | | | | | [place] | | | | | | [address] | | | | | | [phone] | | | +--------+--------+ + + + [...] - 03/16/2020 11:05 AM PDTReceived fax from Rosalee [place]nor [place] prescription for Torsemide. Torsemide prescription sent on 03/[address] [facility] to confirm they received electronic prescription. They received prescriptio n but were unable to fill it as it is too soon to fill. Their records show it was filled on 03/14. Appears that prescription was sent to both [facility] and [facility]. 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 His primary pharmacy is [facility] and he was only getting the Torse mide at [facility] because [facility] was out of Torsemide. She asked that [facility] pharmacy be re moved from preferred pharmacy list. No further questions at this time. documented in this encounter Plan of Treatment +--------+ + + + + | Date | Type | Specialty | Care Team | Description | +--------+ + + + + | 09/19/ | Office | Cardiology | OdonnellMarch, | | 2019 | Visit | | [place] [address] | | | | | | [address], | | | | | | [place] [address] | | | | | | [phone] | | | | | | | [...] [place] | | | | | | [address] | | | | | | | | +--------+ + + + + | 10/30/ | Virtual | Nephrology | Farrukh Acuna MD | | | 2019 | Office | | [address] | | | | Visit | | [address] [place] | | | | | | [address] | | | | | | | [...]
--- OUTSIDE RECORDS SUMMARY | ~2020-09-15 | XMS | Encounter Summary ---
Demographics + + + | Address | [address] | | | [place] [address] | + + + | Home Phone [...] Providers + +------+ + | Care Building Insulation Supervisor Name | Role | Phone | + +------+ + | Rahul Silva MD | PCP | | + +------+ + Encounter Details +--------+ + + + + | Date | Type | Department | Care Team | Description | +--------+ + + + + | 08/20/ | Orders Only | [facility] | Farrukh Acuna MD | Anemia of chronic | | 2019 | | NEPHROLOGY [place] | [address] | renal failure, stage | | | | [address] [place] | [address] [place], [place] | 4 (severe) (HCC) | | | | [address] [place], [place] | [address] | (Primary Dx); Stage | | | | [address] | | 4 chronic kidney | | | | [phone] | | disease (HCC); | | | [...] | 09/19/ | Office | Cardiology | [place], March, | | | 2019 | Visit | | [address] | | | | | | [address], | | | | | | [place] [address] | | | | | | [phone] | | | | | | | [...] [place] | | | | | | [address] | | | | | | | | +--------+ + + + + | 10/30/ | Virtual | Nephrology | Farrukh Acuna MD | | | 2019 | Office | | [address] | | | | Visit | | [address] [place] | | | | | | [address] | | | | | | | [...]
--- OUTSIDE RECORDS SUMMARY | ~2020-09-15 | XMS | Encounter Summary ---
Demographics + + + | Address | [address] | | | [place] [address] | + + + | Home Phone [...] Team Providers + +------+ + | Care High School Music Instructor Name | Role | Phone | + +------+ + | Rahul Silva MD | PCP | | + +------+ + Encounter Details +--------+ + + + + | Date | Type | Department | Care Team | Description | +--------+ + + + + | 07/26/ | Orders Only | [facility] | Farrukh Acuna MD | Chronic kidney | | 2019 | | NEPRHOLOGY DEPOSIT | [address] | disease, stage IV | | | | [address] | [address] [place], [place] | (severe) (HCC); | | | | [address] [place], [place] | [address] | Persistent | | | | [address] | | proteinuria; | | | | [phone] | | Secondary | | | | [...] | | | | | | [place] [address] | | | | | | [phone] | | | | | | | [...] [place] | | | | | | [address] | | | | | | | | +--------+ + + + + | 10/30/ | Virtual | Nephrology | Farrukh Acuna MD | | | 2019 | Office | | [address] | | | | Visit | | [address] [place] | | | | | | [address] | | | | | | | [...] Expires: | | | | | (severe) ([facility]) | 03/08/2020 | | | | | Persistent | | | | | | proteinuria | | | | | | Secondary | | | | | | hyperparathyroidism | | | | | | of renal origin | | | | | | ([facility]) | | + +------+--------+ + [...]
--- OUTSIDE RECORDS SUMMARY | ~2020-09-15 | XMS | Encounter Summary ---
Demographics + + + | Address | [address] | | | [place] [address] | + + + | Home Phone [...] Providers + +------+ + | Care Supervisor Publications Name | Role | Phone | + [...] [address] | | | | | [place], [place] | [place], [place] | | | | | [address] | [address] | | | | | [phone] | [phone] | | | | | | | [...] | | | | | | [place] [address] | | | | | | [phone] | | | | | | | [...] [place] | | | | | | [address] | | | | | | | | +--------+ + + + + | 10/30/ | Virtual | Nephrology | Farrukh Acuna MD | | | 2019 | Office | | [address] | | | | Visit | | [address] [place] | | | | | | [address] | | | | | | | [...]
--- OUTSIDE RECORDS SUMMARY | ~2020-09-15 | XMS | Encounter Summary ---
Demographics + + + | Address | [address] | | | [place] [address] | + + + | Home Phone [...] Team Providers + +------+ + | Care Controls Design Engineer Name | Role | Phone | + +------+ + PCP | Unavailable | + +------+ + Encounter Details +--------+ + + + + | Date | Type | Department | Care Team | Description | +--------+ + + + + | 08/02/ | [facility] | [facility] | Nelson Lutz MD | | | 1991 | Encounter | MED CTR GENERIC OP | [address], [place] | | | | | CONV DEPT [address] | [address] | | | | | [place], | [address] | | | | | [place] [address] | | | | | | [phone] | | | +--------+ + + + [...] | | | | | | [place] [address] | | | | | | [phone] | | | | | | | [...] [place] | | | | | | [id number] | | | | | | | | +--------+ + + + + | 10/30/ | Virtual | Nephrology | Farrukh Acuna MD | | | 2019 | Office | | [address] | | | | Visit | | [facility] | | | | | | [address] | | | | | | | | +--------+ + + + + documented as of this encounter Visit Diagnoses Not on filedocumented in this encounter"
--- OUTSIDE RECORDS SUMMARY | ~2020-09-15 | XMS | Encounter Summary ---
Demographics + + + | Address | [address] | | | [place] [address] | + + + | Home Phone [...] [place] | | | | | [address] | | + + + + + Care Team Providers + +------+ + | Care Herpetologist Name | Role | Phone | + +------+ + PCP | Unavailable | + +------+ + Encounter Details +--------+ + + + + | Date | Type | Department | Care Team | Description | +--------+ + + + + | 12/22/ | Results | | Other, Faculty | | | 1997 | Only | | [phone] | | +--------+ + + + + [...] | | | | | | 12/22/96 [id number] hours. | | | | | | [...] | | + +---------+ + + | [facility] DE[facility]MENT [facility] | | | | | [...] | | | | | | | [id number] | | | | | | SPINE, [...]
--- OUTSIDE RECORDS SUMMARY | ~2020-09-15 | XMS | Encounter Summary ---
Demographics + + + | Address | [address] | | | [place] [address] | + + + | Home Phone [...] Team Providers + +------+ + | Care Loss Prevention Detective Name | Role | Phone | + [...] + + | 01/30/ | Documentati | [facility] | Simon, | Results (01/25/20) | | 2020 | on | NEPHROLOGY [place] | [facility] | | | | | [address] | Organizational Psychologist | | | | | [address] [place], [place] | | | | | | [address] | | | | | | [phone] | | | +--------+ + + + [...] | | | | | | [place] [address] | | | | | | [phone] | | | | | | | [...] [place] | | | | | | [id number] | | | | | | | | +--------+ + + + + | 10/30/ | Virtual | Nephrology | Farrukh Acuna MD | | | 2019 | Office | | [address] | | | | Visit | | [address] [place], [place] | | | | | | [address] | | | | | | | [...]
--- OUTSIDE RECORDS SUMMARY | ~2020-09-15 | XMS | Encounter Summary ---
Demographics + + + | Address | [address] | | | [place] [address] | + + + | Home Phone [...] Team Providers + +------+ + | Care Carton Forming Machine Adjuster Name | Role | Phone | + [...] [place] | | | | | | [address] | (Fax) | | | | | [phone] | | | +--------+ + + + [...] | | | | | | [place] [address] | | | | | | [phone] | | | | | | | [...] [place] | | | | | | [address] | | | | | | | | +--------+ + + + + | 10/30/ | Virtual | Nephrology | Farrukh Acuna MD | | | 2019 | Office | | [address] | | | | Visit | | [address] [place] | | | | | | [address] | | | | | | | [...] - 1.030 | EXTERNAL | | | [place], | | | LAB | | | [...] | | | LAB | | | Togolese | | | | | + + [...]
--- OUTSIDE RECORDS SUMMARY | ~2020-09-15 | XMS | Encounter Summary ---
Demographics + + + | Address | [address] | | | [place] [address] | + + + | Home Phone [...] Team Providers + +------+ + | Care Hotel Maid Name | Role | Phone | + [...] | 2019 | | VASCULAR SURGERY | Assistant Professor Sculpture | | | | | [address] | | | | | | [place] | | | | | | [address] | | | | | | [phone] | | | +--------+ + + + [...] Miscellaneous Notes Telephone Encounter - Terri Aguilar Assistant Professor Sculpture - 09/13/2019 11:01 AM PDTSpoke wi th pt's daughter and pt. Pt is doing okay - there was some increased pain at the site, but t he bandages were removed this morning and the pain is much better. Reminded both of post-op instructions. He is scheduled for f/u with [facility] on 09/30/2019. Encouraged both to call [...] | | | | | | [place] [address] | | | | | | [phone] | | | | | | | [...] [place] | | | | | | [id number] | | | | | | | | +--------+ + + + + | 10/30/ | Virtual | Nephrology | Farrukh Acuna MD | | | 2020 | Office | | [address] | | | | Visit | | [address] [place] | | | | | | [address] | | | | | | | | +--------+ + + + + documented as of this encounter Visit Diagnoses Not on filedocumented in this encounter"
--- OUTSIDE RECORDS SUMMARY | ~2020-09-15 | XMS | Encounter Summary ---
Demographics + + + | Address | [address] | | | [place] [address] | + + + | Home Phone [...] Providers + +------+ + | Care Peanut Roaster Name | Role | Phone | + +------+ + | Rahul Silva MD | PCP | | + +------+ + Reason for Visit + +--------+ + | Reason | Onset | Comments | | | Date | | + +--------+ + | Surgery Appointment | 09/07/ | | | | 2019 | | + +--------+ + Encounter Details +--------+ + + + + | Date | Type | Department | Care Team | Description | +--------+ + + + + | 09/07/ | Telephone | [facility] | Sandy Gomez, | Surgery Appointment | | 2019 | | VASCULAR SURGERY | RN | | | | | [address] | | | | | | [place] | | | | | | [address] | | | | | | [phone] | | | +--------+ + + + [...] Telephone Encounter - Sandy Gomez RN - 09/07/2019 4:32 PM PDTCalled patient's daught er Moriah to see if patient would like earlier surgery time on Friday09/10/[address] Orosco, as he is insulin dependent. No answer, left message. documented in this encounter Plan of Treatment +--------+ + + + + | Date | Type | Specialty | Care Team | Description | +--------+ + + + + | 09/19/ | Office | Cardiology | Blas March, | | | 2019 | Visit | | [address] | | | | | | [address], | | | | | | [place] [address] | | | | | | [phone] | | | | | | | [...] [place] | | | | | | [address] | | | | | | | | +--------+ + + + + | 10/30/ | Virtual | Nephrology | Farrukh Acuna MD | | | 2020 | Office | | [address] | | | | Visit | | [address] [place] | | | | | | [address] | | | | | | | | +--------+ + + + + documented as of this encounter Visit Diagnoses Not on filedocumented in this encounter"
--- OUTSIDE RECORDS SUMMARY | ~2020-09-15 | XMS | Encounter Summary ---
Demographics + + + | Address | [address] | | | [place] [address] | + + + | Home Phone [...] Team Providers + +------+ + | Care Outsole Tacker Name | Role | Phone | + +------+ + | Rahul Silva MD | PCP | | + +------+ + Encounter Details +--------+ + + + + | Date | Type | Department | Care Team | Description | +--------+ + + + + | 10/10/ | Orders Only | [facility] | Farrukh Acuna MD | | | 2013 | | NEPHROLOGY [place] | [address] | | | | | [address] | [address] [place], [place] | | | | | [address] [place] | [address] | | | | | [address] | | | | | | [phone] | | | +--------+ + + + [...] | | | | | | [place] [address] | | | | | | [phone] | | | | | | | [...] [place] | | | | | | [address] | | | | | | | | +--------+ + + + + | 10/30/ | Virtual | Nephrology | Farrukh Acuna MD | | | 2019 | Office | | [address] | | | | Visit | | [address] [place], [place] | | | | | | [address] | | | | | | | | +--------+ + + + + documented as of this encounter Procedures + +--------+ + + + | Procedure Name | Priori | Date/Time | Associated Diagnosis | Comments | | | ty | | | | + +--------+ + + + | EXTERNAL LAB: [facility] | Routin | 10/10/2014 | | Results [...] + + + + | Non- | 3.41 (A) | 4.3 - 5.7 10 | EXTERNAL | | | Red Blood | | | LAB | | | Cells | | | | | | Counted | | | | | + + + + + + | Hemoglobin | 10.6 (A) | 13.5 - 18.0 [...]
--- OUTSIDE RECORDS SUMMARY | ~2020-09-15 | XMS | Encounter Summary ---
Demographics + + + | Address | [address] | | | [place] [address] | + + + | Home Phone [...] Team Providers + +------+ + | Care Skip Loader Name | Role | Phone | [...] [address] | | | | | [place], [place] | [place], [place] | | | | | [address] | [address] | | | | | [phone] | [phone] | | | | | | | [...] | | | | | | [place] [address] | | | | | | [phone] | | | | | | | [...] [place] | | | | | | [address] | | | | | | | | +--------+ + + + + | 10/30/ | Virtual | Nephrology | Farrukh Acuna MD | | | 2019 | Office | | [address] | | | | Visit | | [address] [place] | | | | | | [address] | | | | | | | [...]
--- OUTSIDE RECORDS SUMMARY | ~2020-09-15 | XMS | Encounter Summary ---
Demographics + + + | Address | [address] | | | [place] [address] | + + + | Home Phone [...] Providers + +------+ + | Care Sales Lead Name | Role | Phone | [...] | | [address] [place] | [place] [address] | | | | | [place] [address] | | | | | | [phone] | | | +--------+ + + + [...] | | | | | | [place] [address] | | | | | | [phone] | | | | | | | [...] [place] | | | | | | [address] | | | | | | | | +--------+ + + + + | 10/30/ | Virtual | Nephrology | Farrukh Acuna MD | | | 2019 | Office | | [address] | | | | Visit | | [address] [place] | | | | | | [address] | | | | | | | [...]
--- OUTSIDE RECORDS SUMMARY | ~2020-09-15 | XMS | Encounter Summary ---
Demographics + + + | Address | [address] | | | [place] [address] | + + + | Home Phone [...] Team Providers + +------+ + | Care Private Duty Lpn Name | Role | Phone | + [...] [address] | | | | | [place], [place] | [place], [place] | | | | | [address] | [address] | | | | | [phone] | [phone] | | | | | | | [...] | | | | | | [place] [address] | | | | | | [phone] | | | | | | | [...] [place] | | | | | | [address] | | | | | | | | +--------+ + + + + | 10/30/ | Virtual | Nephrology | Farrukh Acuna MD | | | 2019 | Office | | [address] | | | | Visit | | [address] [place] | | | | | | [address] | | | | | | | [...]
--- OUTSIDE RECORDS SUMMARY | ~2020-09-15 | XMS | Encounter Summary ---
Demographics + + + | Address | [address] | | | [place] [address] | + + + | Home Phone [...] Providers + +------+ + | Care Manager Environmental Name | Role | Phone | + +------+ + | Mehrdad Bergman | PCP | | + +------+ + Encounter Details +--------+ + + + + | Date | Type | Department | Care Team | Description | +--------+ + + + + | 09/12/ | Imaging | [facility] | Provider, | | | 2020 | Exam | MED CTR EXTERNAL | MD Jonathan [address] | | | | | IMAGING [address] | [address] | | | | | [address] [place] | [place] [address] | | | | | [place] [address] | | | | | | [phone] | | | +--------+ + + + [...] | 2019 | Visit | | [address] | | | | | | [address], | | | | | | [place] [address] | | | | | | [phone] | | | | | | | [...] [place] | | | | | | [address] | | | | | | | | +--------+ + + + + | 10/30/ | Virtual | Nephrology | Farrukh Acuna MD | | | 2019 | Office | | [address] | | | | Visit | | [address] [place] | | | | | | [address] | | | | | | | [...] this encounter Results XR Chest 1 Vw (09/11/2020 7:40 PM [...]
--- OUTSIDE RECORDS SUMMARY | ~2020-09-15 | XMS | Encounter Summary ---
Demographics + + + | Address | [address] | | | [place] [address] | + + + | Home Phone [...] [place] | | | | | [address] | | + + + + + Care Team Providers + +------+ + | Care Freight Elevator Erector Name | Role | Phone | [...] Note | | 2000 | Visit-Trans | [address] [facility] | [phone] | | | | [address] | [address] | | | | | | [place], [place] | | | | | | [address] | | | +--------+ + + + [...] recommend that he see one of our technical services specialist for further evaluation, and he did appear interested in doing that. 2. Referral to Dr. Willis in Orthopedics. Yuriy Huang M.D. copier field service technician KYLEE / [id number] / [id number] / [id number] / [id number] C: 01/23/2001 nw documented in this encounter Plan of Treatment Not on filedocumented as of this encounter Visit Diagnoses Not on filedocumented in this encounter"
--- OUTSIDE RECORDS SUMMARY | ~2020-09-15 | XMS | Encounter Summary ---
Demographics + + + | Address | [address] | | | [place] [address] | + + + | Home Phone [...] Providers + +------+ + | Care Sales Product Manager Name | Role | Phone | [...] + + | 08/13/ | Telephone | [facility] | Farrukh Acuna MD | Other (lab result) | | 2019 | | NEPRHOLOGY [place] | [address] | | | | | [address] | [address] [place], [place] | | | | | [address] [place], [place] | [address] | | | | | [address] | | | | | | [phone] | | | +--------+ + + + [...] Notes Telephone Encounter - Oly Alvarenga V, Global Position System Technician - 08/13/2019 3:32 PM PDTTom e with Dr. Acuna. Per Dr. Acuna, no change, potassium ok. Called and spoke with daughter, Charlotte. Relay the provider message. She voiced elizabeth g. No further questions. elephone Encounter - Oly Alvarenga V Global Position System Technician - 08/13 3:05 PM PDTPlease review and [...] lab results. Please call them back at [phone]. Detailed message may be left on phone: Yes Last OV: 05/31/19 Next OV: 10/04/19 If this is a symptom based call and you were unable to immediately [facility], was caller made aware that if at any timeshefeels it is an emergency they shoul d call 911 or go to the nearest emergency room? N/A Is healthcare recruiter needed: no documented in this enc ounter Plan of Treatment +--------+ + + + + | Date | Type | Specialty | Care Team | Description | +--------+ + + + + | 09/19/ | Office | Cardiology | BlasMarch, | | | 2019 | Visit | | WAREHOUSE SPECIALIST [address] | | | | | | [address], | | | | | | [place] [address] | | | | | | [phone] | | | | | | | [...] [place] | | | | | | [address] | | | | | | | | +--------+ + + + + | 10/30/ | Virtual | Nephrology | Farrukh Acuna MD | | | 2019 | Office | | [address] | | | | Visit | | [address] [place] | | | | | | [address] | | | | | | | | +--------+ + + + + documented as of this encounter Visit Diagnoses Not on filedocumented in this encounter"
--- OUTSIDE RECORDS SUMMARY | ~2020-09-15 | XMS | Encounter Summary ---
Demographics + + + | Address | [address] | | | [place] [address] | + + + | Home Phone [...] Team Providers + +------+ + | Care Pantry Chef Name | Role | Phone | + +------+ + | Rahul Silva MD | PCP | | + +------+ + Reason for Visit +--------+--------+ + | Reason | Onset | Comments | | | Date | | +--------+--------+ + | Other | 11/17/ | Patient call | | | 2019 | | +--------+--------+ + Encounter Details +--------+ + + + + | Date | Type | Department | Care Team | Description | +--------+ + + + + | 11/17/ | Telephone | [facility] | Farrukh Acuna MD | Other (Patient call | | 2018 | | NEPHROLOGY [place] | [address] | ) | | | | [address] | [address] [place], [place] | | | | | [address] [place] | [id number] | | | | | [address] | | | | | | [phone] | | | +--------+ + + + [...] Miscellaneous Notes Telephone Encounter - Trinidad Simon Catering Sales Manager - 12/17/2019 10:24 AM PSTDr. Shannan bloom aware elephone Encounter - Trinidad Simon Catering Sales Manager - 11/17/2019 2:11 PM PS TPatients daughter is concerned because her dad has been having some confusion. She states t hat the ER told her that he may have had a "small stroke". She states that patient was instr ucted to take Asprin after the hospital stay. She would just like to let Dr. Acuna know. El ectronically signed by Trinidad Simon Catering Sales Manager at 11/17/2019 2:15 PM PSTdocum ented in this encounter Plan of Treatment +--------+ + + + + | Date | Type | Specialty | Care Team | Description | +--------+ + + + + | 09/19/ | Office | Cardiology | BlasMarch, | | 2019 | Visit | | CLIENT APPLICATION SUPPORT SPECIALIST [address] | | | | | | [address], | | | | | | [place] [address] | | | | | | [phone] | | | | | | | [...] [place] | | | | | | [address] | | | | | | | | +--------+ + + + + | 10/30/ | Virtual | Nephrology | Farrukh Acuna MD | | | 2019 | Office | | [address] | | | | Visit | | [address] [place] | | | | | | [address] | | | | | | | | +--------+ + + + + documented as of this encounter Visit Diagnoses Not on filedocumented in this encounter
--- OUTSIDE RECORDS SUMMARY | ~2020-09-15 | XMS | Encounter Summary ---
Demographics + + + | Address | [address] | | | [place] [address] | + + + | Home Phone [...] Author | [facility] | + + + | Organization | [facility] | + + + | Address | Unknown | + + + | Phone | Unavailable | + + + Support + + + + + | Name | Relationship | Address | Phone | + + + + + | Darci Zavala | VALERIE | [place] | | | | | [address] | | + + + + + Care Team Providers + +------+ + | Care Saw Feeder Name | Role | Phone | [...] [place] | | | | | | [address] | | | | | | [place], [place] | | | | | | [address] | | | | | | [phone] | | | +--------+ + + + [...] as of this encounter Progress Notes Interface, Plant Specialist In - 02/14/2007 3:12 AM PDT [facility] and [address] [address] or September 09, 1996 Nestor VALLES MD [address] [place] [address] RE: PORFIRIO ZAVALA MR#: [id number] Valles: Your patient, Porfirio Zavala, was seen for follow up today in the Neurosurgery Clinic at [facility]. 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 Following our initial evaluation, we recommended [...] Fellow, Neurosurgery Alina Moise M.D. Professor and Public Relations Counselor, Division of Neurosurgery Mala documented in this encounter Plan of Treatment Not on filedocumented as of this encounter Visit Diagnoses Not on filedocumented in this encounter"
--- OUTSIDE RECORDS SUMMARY | ~2020-09-15 | XMS | Encounter Summary ---
Demographics + + + | Address | [address] | | | [place] [address] | + + + | Home Phone [...] Team Providers + +------+ + | Care Bilingual Teacher Assistant Name | Role | Phone | [...] | | | [address] [place] | [place] [address] | | | | | [place] [address] | | | | | | [phone] | | | +--------+ + + + [...] | | | | | | [place] [address] | | | | | | [phone] | | | | | | | [...] [place] | | | | | | [address] | | | | | | | | +--------+ + + + + | 10/30/ | Virtual | Nephrology | Farrukh Acuna MD | | | 2019 | Office | | [address] | | | | Visit | | [address] [place] | | | | | | [id number] | | | | | | | [...]
--- OUTSIDE RECORDS SUMMARY | ~2020-09-15 | XMS | Encounter Summary ---
Demographics + + + | Address | [address] | | | [place] [address] | + + + | Home Phone [...] Team Providers + +------+ + | Care Fitness Trainer Name | Role | Phone | + +------+ + | Rahul Silva MD | PCP | | + +------+ + Encounter Details +--------+---------+ + + + | Date | Type | Department | Care Team | Description | +--------+---------+ + + + | 07/26/ | Office | [facility] | Farrukh Acuna MD | Stage 5 chronic | | 2019 | Visit | NEPHROLOGY [place] | [address] | kidney disease not | | | | [address] | [address] [place], [place] | on chronic dialysis | | | | [address] | [address] | (HCC) (Primary Dx); | | | | [place], [place] | | Edema of lower | | | | [address] | | extremity; Tobacco | | | | [phone] | | dependence syndrome; | | | [...] Also: I see no need for acute GUIDANCE CONSULTANT. I see no need to send [...] 05/31/19 1232 Encounter Date: 05/31/2019 Status: Signed Corn Detasseler Machine Operator: Farrukh Acuna MD (Physician) Patient Active Problem [...] 10/2016 with severe pneumonia, severe ZEKE; needed GUIDANCE CONSULTANT for ~5 weeks b efore renal function recovery mid 12/2016. He was admitted to [facility] for 3 nights in July 2016 [...] 19.5 (A) 05/27/2019 LABPROT 2,445.6 (A) 03/01/2019 [id number] 10/08/2018 Assessment: Mr. Andujar is a 78 y.o. male patient with stage IV CKD on a background of diabetes & hypert ension and recent hospitalization for C-diff and hehydration. The most likely pathology here is that of diabetic nephropathy +/- hypertensive nephrosclerosis/arteriolosclerosis. He was hospitalized in 10/2016 with severe pneumonia, severe ZEKE; needed GUIDANCE CONSULTANT for ~5 weeks b efore renal [...] Also: I see no need for acute GUIDANCE CONSULTANT. I see no need to send [...] | | | | | | [address] [place], | | | | | | [place] [address] | | | | | | [phone] | | | | | | | [...] [place] | | | | | | [address] | | | | | | | | +--------+ + + + + | 10/30/ | Virtual | Nephrology | Farrukh Acuna MD | | | 2019 | Office | | [address] | | | | Visit | | [address] [place] | | | | | | [address] | | | | | | | [...]
--- OUTSIDE RECORDS SUMMARY | ~2020-09-15 | XMS | Clinical Summary ---
Demographics + + + | Address | [address] | | | [place] [address] | + + + | Home Phone | | + + + | Preferred Language | Unknown | + + + | Marital Status | Single | + + + | Evangelical Affiliation | PRO | + + + | Race | White | + + + | Ethnic Group | Not or | + + + Author + + + | Author | [facility] | + + + | Organization | [facility] | + + + | Address | Unknown | + + + | Phone | Unavailable | + + + Support + + + + + | Name | Relationship | Address | Phone | + + + + + | Darci Andujar | VALERIE | [place] | | | | | [phone] | | + + + + + Care Team Providers + +------+ + | Care Wrapping Machine Tender Name | Role | Phone | + +------+ + | Rahul Silva MD | PCP | | + +------+ + Source Comments [place] is fully live on both [facility] and [facility] Allergies No Known Allergies Medications + + [...]
--- OUTSIDE RECORDS SUMMARY | ~2020-09-15 | XMS | Encounter Summary ---
Demographics + + + | Address | [address] | | | [place] [address] | + + + | Home Phone [...] Team Providers + +------+ + | Care Trainmaster Name | Role | Phone | + +------+ + | Rahul Silva MD | PCP | | + +------+ + Encounter Details +--------+ + + + + | Date | Type | Department | Care Team | Description | +--------+ + + + + | 11/10/ | Orders Only | [facility] | Farrukh Acuna MD | | | 2017 | | NEPHROLOGY [place] | [address] | | | | | [address] | [address], [place] | | | | | [address] [place] | [address] | | | | | [address] | | | | | | [phone] | | | +--------+ + + + [...] | | | | | | [place] [address] | | | | | | [phone] | | | | | | | [...] [place] | | | | | | [address] | | | | | | | | +--------+ + + + + | 10/30/ | Virtual | Nephrology | Farrukh Acuna MD | | | 2019 | Office | | [address] | | | | Visit | | [address] [place] [place] | | | | | | [address] | | | | | | | [...] | | | LAB | | | [place] | | | | | + + [...]
--- OUTSIDE RECORDS SUMMARY | ~2020-09-15 | XMS | Encounter Summary ---
Demographics + + + | Address | [address] | | | [place] [address] | + + + | Home Phone [...] Team Providers + +------+ + | Care Extension Worker Name | Role | Phone | + +------+ + | Mehrdad Bergman | PCP | | + +------+ + Encounter Details +--------+ + + + + | Date | Type | Department | Care Team | Description | +--------+ + + + + | 03/27/ | Virtual | [facility] | Farrukh Acuna MD | CKD (chronic kidney | | 2019 | Office | NEPHROLOGY [place] | [address] | disease) stage 5, | | | Visit | [address] | [address] [place], [place] | GFR less than 15 | | | | [address] | [address] | ml/min (HCC) | | | | [place], [place] | | (Primary Dx); Anemia | | | | [address] | | of chronic kidney | | | | [phone] | | failure, stage 5 | | [...] insulin | | | | | | ([facility]); Secondary | | | | | | hyperparathyroidism | | | | | | ([facility]); Essential | | | | | | [...] before he comes back in 2 m [facility]. documented in this encounter Progress Notes [...] 10/2016 with severe pneumonia, severe ZEKE; needed PUBLICITY MANAGER for ~5 weeks b efore renal function recovery mid 12/2016. He was admitted to [facility] for 3 nights in July 2016 for [...] 10/2016 with severe pneumonia, severe ZEKE; needed PUBLICITY MANAGER for ~5 weeks b efore renal [...] Also: I see no need for acute PUBLICITY MANAGER. I see no need to send [...] or concerns. Truly yours, Farrukh Acuna MD [facility], [facility] This exam was initially conducted via a secure 256-bit AES encrypted bidirectional video se ssion. You have chosen to receive care through the use of telemedicine. Telemedicine enables [facility] care providers at different locations to [...] | | 2019 | Visit | | EFFICIENCY CLERK [address] | | | | | | [address], | | | | | | [place] [address] | | | | | | [phone] | | | | | | | [...] [place] | | | | | | [address] | | | | | | | | +--------+ + + + + | 10/30/ | Virtual | Nephrology | Farrukh Acuna MD | | | 2019 | Office | | [address] | | | | Visit | | [address] [place] | | | | | | [address] | | | | | | | [...] kidney failure, stage 5 ([facility]) | + + | Edema of lower [...]
--- OUTSIDE RECORDS SUMMARY | ~2020-09-15 | XMS | Encounter Summary ---
Demographics + + + | Address | [address] | | | [place] [address] | + + + | Home Phone [...] Providers + +------+ + | Care Shift Lab Technician Name | Role | Phone [...] | Transaction, | | | | | [place], [place] | Provider Unknown | | | | | [address] | [phone] | | | | | [phone] | | | +--------+ + + + [...] | | | | | | [place] [address] | | | | | | [phone] | | | | | | | [...] [place] | | | | | | [address] | | | | | | | | +--------+ + + + + | 10/30/ | Virtual | Nephrology | Farrukh Acuna MD | | | 2019 | Office | | [address] | | | | Visit | | [address] [place] | | | | | | [address] | | | | | | | [...]
--- OUTSIDE RECORDS SUMMARY | ~2020-09-15 | XMS | Encounter Summary ---
Demographics + + + | Address | [address] | | | [place] [address] | + + + | Home Phone [...] Team Providers + +------+ + | Care Preparole Counseling Aide Name | Role | Phone | + +------+ + | Rahul Silva MD | PCP | | + +------+ + Encounter Details +--------+---------+ + + + | Date | Type | Department | Care Team | Description | +--------+---------+ + + + | 10/04/ | Office | [facility] | Farrukh Acuna MD | CKD (chronic kidney | | 2019 | Visit | NEPHROLOGY [place] | [address] | disease) stage 5, | | | | [address] | [address] [place], [place] | GFR less than 15 | | | | [address] | [address] | ml/min (HCC) | | | | [place], [place] | | (Primary Dx); Anemia | | | | [address] | | of chronic kidney | | | | [phone] | | failure, stage 5 | | | | | | (HCC); Essential | | | | | | hypertension; Iron | | | | | | deficiency; | | | | | | Secondary | | | | | | hyperparathyroidism | | | | | | ([facility]); 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, with | | | | | | long-term current | | | | | | use of insulin | | | | | | ([facility]); Edema of | | | [...] months. documented in this encounter Progress Notes Frarukh Acuna MD - 10/04/2019 2:20 PM PST [...] 10/2016 with severe pneumonia, severe ZEKE; needed CASKET LINER for ~5 weeks b efore renal function recovery mid 12/2016. He was admitted to [facility] for 3 nights in July 2016 for [...] 19.5 (A) 05/27/2019 LABPROT 2,445.6 (A) 03/01/2019 [id number] 30 10/08/2018 Assessment: Mr. Andujar is a 78 y.o. male patient with stage IV CKD on a background of diabetes & hypert ension and recent hospitalization for C-diff and hehydration. The most likely pathology here is that of diabetic nephropathy +/- hypertensive nephrosclerosis/arteriolosclerosis. He was hospitalized in 10/2016 with severe pneumonia, severe ZEKE; needed CASKET LINER for ~5 weeks b efore renal function [...] Also: I see no need for acute CASKET LINER. I see no need to send him [...] | | 2019 | Visit | | LITIGATION COORDINATOR [address] | | | | | | [address], | | | | | | [place] [address] | | | | | | [phone] | | | | | | | [...] [place] | | | | | | [address] | | | | | | | | +--------+ + + + + documented as of this encounter Visit Diagnoses + + | Diagnosis | + + | CKD (chronic kidney disease) stage 5, GFR less than 15 ml/min ([facility]) - Primary Chronic | | kidney disease, Stage V | + + | Anemia of chronic kidney failure, stage 5 ([facility]) | + + | Essential hypertension Unspecified [...]
--- OUTSIDE RECORDS SUMMARY | ~2020-09-15 | XMS | Encounter Summary ---
Demographics + + + | Address | [address] | | | [place] [address] | + + + | Home Phone [...] Team Providers + +------+ + | Care Inclusion Special Education Teacher Name | Role | Phone | [...] Description | +--------+---------+ + + + | 09/14/ | Surgery | [facility] | Ron Orosco MD | CV COR ANGIO | | 2019 | | MED CTR CV INTRA OP | [address] | | | | | [address] | [place] | | | | | [place] | [address] | | | | | [address] | | | | | | [phone] | | | +--------+---------+ + + + [...] + + + | Blood Pressure | 136/66 | 09/14/2020 5:30 PM | | | | | PDT | | + + + + + | Pulse | 80 | 09/14/2020 5:30 PM | | | | | PDT | | + + + + + | Temperature | 36.1 C (97 F) | 09/14/2020 3:42 PM | | | | | PDT | | + + + + + | Respiratory Rate | 16 | 09/14/2020 5:30 PM | | | | | PDT | | + + + + + | Oxygen Saturation | 100% | 09/14/2020 5:30 PM | | | | | PDT | | + + + + + | Inhaled Oxygen | - | - | | | Concentration | | | | + + + + + | Weight | 64.7 kg (142 lb 10.2 | 09/14/2020 3:00 AM | | | | oz) | [...] 09/15/2020 ADMITTING DIAGNOSIS: ACS (acute coronary syndrome) ([facility]) PRIMARY CARE PROVIDER: Mehrdad Bergman DISCHARGE DIAGNOSES: [...] priLOSEC ondansetron 8 mg disintegrating tablet aka: ZOFRAN ODT ONE TOUCH ULTRA TEST strip Generic [...] TRELEGY ELLIPTA 100-62.5-25 mcg/puff inhaler Generic drug: eohywowspky-ecnqopntthyp-acvcpkkktr inhale 1 puff by mouth once daily [...] try basil, cilantro, cinnamon, pepper, and avtar. [employer] last reviewed this educational content on 08/31/201719997144-6098 [employer]. [address] [place] [address]. All righ ts reserved. This information is not intended as a substitute for professional medical care. Always follow your healthcare professional's instructions. Discharge References/Attachments Angioplasty and Stent Placement for the Heart ([facility]) Follow-up: In [address] Ron Orosco. Time spent on discharge planning: greater than 30 minutes Portions of this chart may have been created with en-Gauge voice recognition software. Occasi onal wrong-word or [...] try basil, cilantro, cinnamon, pepper, and avtar. [employer] last reviewed this educational content on 08/31/201719993219-9380 [employer]. [address] [place] [address], [place] [address]. All righ ts reserved. This information is not intended as a substitute for professional medical care. Always follow your healthcare professional's instructions. AttachmentsThe following attachments cannot be sent through Care Everywhere.Angioplasty and Stent Placement for the Heart ([facility])documented in this encounter Medications at Time of [...] under | 0.5 mL | 5 | // | | | (ARANESP, ALBUMIN | the skin Every 28 | | | 20 | | | [...] | | | | ([facility]), Anemia of | | | | | [...] tablet by | 30 | 0 | // | | | (PRINIVIL,ZESTRIL) | mouth nightly. [...] tablet by | 1080 | 3 | 05/05/20 | | | 650 mg | mouth [...] this encounter Progress Notes Jose L Johnson, Menagerie Caretaker - 09/15/2020 11:59 AM PDTKavon Andujar was admi tted for NSTEMI and [...] and keep list current. Jose L Johnson, Menagerie Caretaker 09/15/2020 11:57 AM PDT Connie Ellis MD - 09/14/2020 3:00 PM PDTFormatting of this note might be differen t from the original. [place] HOSPITALIST PROGRESS NOTE Patient: Kavon Andujar : 1940: Age: 80 y.o. MedRec: [id number] Admission date: 09/12/2020 Hospital day # : [...] who presentsaga in with NSTEMI, type II IA possibly related to anemia from bleeding of his tongue cancer. PCI with stent x2 (LAD and circumflex) on 09/14/20 Assessment and Plan #Type II IA in setting ofHFrEF (35-40%) Patient with prior [...] -Follow hemoglobin, transfuse as needed to keep nfstl2us needed for symptoms #End-stage renal disease, on [...] to restart -Holding doxepin due to acute IA -Continue statin -Continue Imdur, increase to 60 [...] Connie Chawla MD 09/14/2020 3:00 PM PDT [facility] Subjective CC chest pain Patient [...] Nightly Pawel Mendieta MD 80 mg at 202 calcitriol (ROCALTROL) capsule 0.25 mcg 0.25 mcg [...] Component Value Units Date/Time Coronavirus (COVID-19) NAAT [[id number]] (Normal) Collected: 09/12/20248 Order Status: Completed Lab [...] be regarded as investigational or for research. [facility] laboratory is certified under the Clinical Laboratory [...] is terminated or revoked sooner. Culture, MRSA [[id number]] (Normal) Collected: 09/12/20240 Order Status: Completed Lab Status: Final result Updated: 09/13/20 0832 Specimen: Tissue from Nares Culture Negative for MRSA by chromogenic agar method. Radiology results (more choices using dot risresults) No results found. Portions of this chart may have been created with en-Gauge voice recognition software. Occasi onal wrong-word or [...] coordination the patient's care as outlined above. Genesis Vázquez MD - 09/13/2020 10:42 AM PDTFormatting of this note might be different fro m the original. [place] HOSPITALIST PROGRESS NOTE Patient: Kavon Andujar : 1940: Age: 80 y.o. MedRec: [id number] Admission date: 09/12/2020 Hospital day # : [...] presents agai n with NSTEMI, type II IA possibly related to anemia from bleeding of his tongue cancer. Assessment and Plan #Type II IA in setting of HFrEF (35-40%) Patient with [...] tongue cancer -Holding doxepin due to acute IA -Continue statin -Continue Imdur, increase to 60 [...] Connie Chawla MD 09/13/2020 10:42 AM PDT [facility] Subjective CC chest pain Patient [...] mg 0.2-0.4 mg Intravenous Q2H PRN Trinidad Braton MD insulin lispro (humaLOG KWIKPEN, ADMELOG) injection [...] Component Value Units Date/Time Coronavirus (COVID-19) NAAT [[id number]] (Normal) Collected: 09/12/20248 Order Status: Completed Lab [...] be regarded as investigational or for research. [facility] laboratory is certified under the Clinical Laboratory [...] is terminated or revoked sooner. Culture, MRSA [[id number]] (Normal) Collected: 09/12/20240 Order Status: Completed Lab Status: Final result Updated: 09/13/20 0832 Specimen: Tissue from Nares Culture Negative for MRSA by chromogenic agar method. Radiology results (more choices using dot risresults) Xr Chest 1 Vw Result Date: 09/12/2020 External films for comparison only No results will be in the chart. Portions of this chart may have been created with [employer] voice recognition software. Occasi onal wrong-word or [...] might be different from the kathleen duarte. [facility] NEPHROLOGY PROGRESS NOTE Patient: Kavon Andujar : 1940 Hospital Day # 1 ASSESMENT AND PLAN 1. End-stage renal disease, on hemodialysis. ESRD due to DM, HTN. History of ZEKE requiring dialysis in 2016. Pt dialyzes in [facility], on MWF, via right upper arm AV fistula. Outpatient electronic service technician in Dr. Acuna. -HD today, 2K, UF [...] AVF cannulated. LABORATORY DATA: Recent Labs Lab 09/13/2025409/12/20204309/12/20429 WBC 7.1 -- 7.3 HGB 8.8* 8.7* 8.5* HCT 27.4* 26.7* 26.8* PLT 212 -- 233 Recent Labs Lab 09/13/2025509/12/20429 NA 135* 136 K 4.6 3.9 CL 100 100 CO2 32* 31 BUN 28* 19 CREA 3.71* 2.75* CALCIUM 8.6* 8.5* PHOS 4.6 -- ALBUMIN 3.4 -- GLU 118* 138* Recent Labs Lab 09/12/20429 MG 2.0 Diagnostic Studies: Available data and images were reviewed personally. Significant results and findings are ad dressed here or in the Assessment and Plan. Trinidad Barton MD Electronically signed: 09/13/2020 10:03 AM PDT [facility] NEPHROLOGY elisa, Connie sagastume MD - 09/12/2020 4:15 PM PDTFormatting of this note might be different from the kathleen ginal. [place] HOSPITALIST PROGRESS NOTE Patient: Kavon Andujar : 1940: Age: 80 y.o. MedRec: [id number] Admission date: 09/12/2020 Hospital day # : [...] presents again wi th NSTEMI, type II IA possibly related to anemia from bleeding of his tongue cancer. Assessment and Plan #Type II IA in setting of HFrEF (35-40%) Patient with [...] tongue cancer -Holding doxepin due to acute IA -Continue statin -Continue Imdur, increase to 60 [...] today Connie Chawla MD 09/12/2020 4:15 PM [facility] Subjective CC chest pain Patient continues to [...] has lengthened Confirmed by ARIADNE WATKINS, AYAH ([id number]) on 09/12/2020 7:14:13 AM Basic Metabolic Panel [...] AM Result Value Ref Range Product Code J9180S45 UNIT # [id number] UNIT ABO B UNIT RH NEG CROSSMATCH INTERP Compatible Unit Status Crossmatched Blood Product Expiration Date and Time 876403577809 Product Blood Type Barcode 1700 Red Blood Cells (PRBC) - Crossmatch Collection Time: 09/12/20 6:56 AM Result Value Ref Range Product Code Q6175Q82 UNIT # [id number] UNIT ABO B UNIT RH NEG CROSSMATCH INTERP Compatible Unit Status Issued Blood Product Expiration Date and Time 291493234696 Product Blood Type Barcode 1700 Troponin I Collection Time: 09/12/20 8:37 AM Result Value Ref Range Troponin I 0.93 (HH) <0.06 ng/mL Troponin I Collection Time: 09/12/20 3:04 PM Result Value Ref Range Troponin I 1.98 (HH) <0.06 ng/mL Micro results (more choices using dot micro) Microbiology Results (72 hrs) Procedure Component Value Units Date/Time Coronavirus (COVID-19) NAAT [[id number]] (Normal) Collected: 09/12/20 0249 Order Status: Completed [...] be regarded as investigational or for research. [facility] laboratory is certified under the Clinical Laboratory [...] is terminated or revoked sooner. Culture, MRSA [[id number]] Collected: 09/12/20240 Order Status: Sent Lab Status: In process Updated: 09/12/20243 Specimen: Tissue from Nares Radiology results (more choices using dot risresults) Xr Chest 1 Vw Result Date: 09/12/2020 External films for comparison only No results will be in the chart. Portions of this chart may have been created with en-Gauge voice recognition software. Occasi onal wrong-word or [...] Pawel Mendieta MD 09/12/20 4:34 AM PDT awel Mendieta MD - 1 1:43 AM PDT [facility] HISTORY AND PHYSICAL Pt. Name/Age/: [...] asing his oxygen via nasal cannula from 4-12/02--12/02. Patient's been using his puffers witho ut [...] (Right BBF); Surgeon: Brian Orosco MD; Location: [facility] MAIN OR CHOLECYSTECTOMY COLONOSCOPY HIATAL HERNIA REPAIR [...] unless otherwise stated in HPI HOME MEDICATIONS: BICYCLE RACER Home Medications Medication Sig albuterol 2.5 mg/3 [...] Pawel Mendieta MD 09/12/2020 1:43 AM PDT [facility] documented in this enc ounter Consult [...] today. Electronically Signed by: Ron Orosco MD [facility] 09/14/2020 12:11 PM PDT [facility] on Orosco MD - 12:10 PM PDT PATIENT NAME: [...] (Right BBF); Surgeon: Brian Orosco MD; Location: [facility] MAIN OR CHOLECYSTECTOMY COLONOSCOPY HIATAL HERNIA REPAIR LEG SURGERY x2 on stump of amputated leg OTHER SURGICAL HISTORY CATARACT EXTRACTION BILATERAL PANCREAS SURGERY tumor removal FAMILY HISTORY Family History Problem Relation Age of Onset Hypertension Mother Cancer Father Heart disease Father Hypertension Brother Malig hypertherm Neg Hx SOCIAL HISTORY Social History [...] Nightly Pawel Mendieta MD 80 mg at 202 calcitriol (ROCALTROL) capsule 0.25 mcg 0.25 mcg [...] Nightly Trinidad Barton MD 110 mL/hr at 09/13/202129 125 mg at 09/13/20 2130 HYDROmorphone (DILAUDID) [...] mL Intracatheter Q30 Min PRN Rory Ferrara [facility] list of outpatient meds: Medications Prior [...] associated with acute m yocardial infarction. The [place] [employer]iology (ACC) recommends a decision [...] associated with acute m yocardial infarction. The [place] College [employer]iology (ACC) recommends a decision [...] associated with acute m yocardial infarction. The [place] College [employer]iology (ACC) recommends a decision [...] associated with acute m yocardial infarction. The [place] College [employer]iology (ACC) recommends a decision [...] be regarded as investigational or for research. [facility] laboratory is certified under the Clinical Laboratory [...] has lengthened Confirmed by ARIADNE WATKINS, AYAH ([id number]) on 09/12/2020 7:14:13 AM ABO 09/12/2020 B Final Rh Type 09/12/2020 Negative Final Antibody Screen 09/12/2020 Negative Final Culture 09/12/2020 Negative for MRSA by chromogenic agar method. Final Product Code 09/12/2020 [id number] Final UNIT # 09/12/2020 [id number] Final UNIT ABO 09/12/2020 B Final UNIT RH 09/12/2020 NEG Final CROSSMATCH INTERP 09/12/2020 Compatible Final Unit Status 09/12/2020 Issued Final Blood Product Expiration Date and * 09/12/20202019165490207600 Final Product Blood Type Barcode 09/12/2020 1700 Final Product Code 09/12/2020 [id number] Final UNIT # 09/12/2020 [id number] Final UNIT ABO 09/12/2020 B Final UNIT RH 09/12/2020 NEG Final CROSSMATCH INTERP 09/12/2020 Compatible Final Unit Status 09/12/2020 Crossmatched Final Blood Product Expiration Date and * 09/12/20202019646687704516 Final Product Blood Type Barcode 09/12/2020 1700 Final Hematocrit 09/12/2020 26.7* 40.0 - 51.0 % Final Hemoglobin 09/12/2020 8.7* 13.5 - 18.0 g/dL Final Troponin I 09/13/2020 3.25* <0.06 ng/mL Final Comment: Reference Ranges: 0.00-0.06 = NORMAL >0.06 = SUSPICIOUS FOR MYOCARDIAL DAMAGE NOTE: Values greater than 0.78 ng/mL have been shown to be strongly associated with acute m yocardial infarction. The [place] College [employer]iology (ACC) recommends a decision [...] associated with acute m yocardial infarction. The [place] College of [employer]iology (ACC) recommends a decision [...] associated with acute m yocardial infarction. The [place] College of [employer]iology (ACC) recommends a decision [...] associated with acute m yocardial infarction. The [place] College of [employer]iology (ACC) recommends a decision [...] leads is no longer present Confirmed by AYAH RON MD ([id number]) on 09/13/2020 5:07:53 PM Glucose, POC 09/13/2020 [...] associated with acute m yocardial infarction. The [place] College of [employer]iology (ACC) recommends a decision [...] associated with acute m yocardial infarction. The [place] College [employer]iology (ACC) recommends a decision [...] Recent Labs Lab 09/14/20 0916 09/14/20 0319 09/13/20204909/13/20 1409 09/13/20 0750 TROPONIN 1.03* 1.42* 1.62* 1.79* 2.24* IMAGING: Us Renal Limited Result Date: 08/25/2020 ULTRASOUND KIDNEYS AND BLADDER CLINICAL INFORMATION: End stage renal disease COMPARISON: [facility] HEMODIALYSIS GRAFT FISTULA (10/20/2019); PROCEDURE: Evaluation [...] renal cysts. Final Report Signed by: Idris Valdez Richard Sign Date/Time: 7:50 AM Xr Chest Ap [...] post cholecystectomy. Final Report Signed by: Idris Diaz Matth ew Sign Date/Time: 08/29/2020 1:54 PM Xr Chest [...] for clinical ischemia. Patient will see co nsider heart catheterization when able and comfortable stabilize (heart failure as well as r enal status. I appreciate the opportunity of participating in the care of this patient. Ron Orosco MD, [facility], 09/14/2020 12:10 PM PDT rinidad Barton MD - 09/12/2020 12:21 PM PDT [facility] NEPHROLOGY CONSULTATION Patient: Kavon Andujar : 1940 [...] via right upper arm AV fistula. Outpatient electronic service technician in Dr. Acuna. Pt dialyzed at outpatient [...] shortness of breath. Pt was admitted to [facility] from 08/25/2020 to 09/01/2020 with acute respiratory failure with h ypoxia, NSTEMI, right tonsillar squamous cell carcinoma. Pt last dialyzed at [facility] yesterday, 09/11/2020. Pt reports he developed chest pain and increased shortness of breath. Pt reports he wanted to be admitted to [facility], and is very upset that he is here in [place]. Pt reports he continues to have a left-sided chest pain. Pt is on BIPAP, which makes obtaining history ch allenging. Pt denies abdominal pain, diarrhea. Pt reports he occasionally coughs up blood, which he attributes to his tonsillar cancer. Reviewed discharge summary from [facility] from 09/01/2020. Reviewed office note from Dr. [...] (Right BBF); Surgeon: Brian Orosco MD; Location: [facility] MAIN OR CHOLECYSTECTOMY COLONOSCOPY HIATAL HERNIA REPAIR LEG SURGERY x2 on stump of amputated leg OTHER SURGICAL HISTORY CATARACT EXTRACTION BILATERAL PANCREAS SURGERY tumor removal FAMILY HISTORY Family History Problem Relation Age of Onset Hypertension Mother Cancer Father Heart disease Father Hypertension Brother Malig hypertherm Neg Hx SOCIAL HISTORY Social History [...] use: No Social History Narrative Lives with daughterCharlotte, in [place], [place]. ALLERGIES Allergies Allergen Reactions Trazodone Hallucination [...] kg (09/12/20304)Last: 78.4 kg (09/12/20304)Difference: 0kg 09/11 0701 - 0700 In: 319.3 [I.V.:180.3] Out: 0 General: In [...] has lengthened Confirmed by ARIADNE WATKINS, AYAH ([id number]) on 09/12/2020 7:14:13 AM Basic Metabolic Panel [...] Crossmatch Result Value Ref Range Product Code U2104M97 UNIT # [id number] UNIT ABO B UNIT RH NEG CROSSMATCH INTERP Compatible Unit Status Crossmatched Blood Product Expiration Date and Time 876962377649 Product Blood Type Barcode 1700 Red Blood Cells (PRBC) - Crossmatch Result Value Ref Range Product Code L6252A35 UNIT # [id number] UNIT ABO B UNIT RH NEG CROSSMATCH INTERP Compatible Unit Status Issued Blood Product Expiration Date and Time 344406322838 Product Blood Type Barcode 1700 Troponin I [...] Barton MD Electronically signed: 09/12/2020 12:21 PM PDT [facility] documented in this encounter Miscellaneous Notes Plan of Care - Sandy Vang RN - 09/15/2020 2:48 PM PDTDon is A/O. He denies CP, SOB . He is on his baseline 4L n/c and resting comfortably. His R groin puncture site is still f irm to touch, but swelling is localized & stable. Intermittent discomfort at site. Bleeding controlled. CMS intact in RLE. Pt is discharging to dialysis chair this afternoon in [facility] on. Attempted to perform AVS education with patient, but he refused teaching with this RN. H is daughter, Charlotte, was called and discharge information was reviewed verbally with her. Osorio rd copy of AVS paperwork sent with patient at discharge & daughter is aware that he will be bringing it home with him. lan of [place] - Chasity Farr RN - 09/15/2020 1:51 PM PDT Mr. Andujar will be discharging home today. Contacted Charlotte, Mr. Andujar's daughter, she states that her dad cannot discharge today. Ceasar jeremy feels he is not ready and does not want him to relapse. She also stated he needs to have d ialysis today and [facility] in [place] is not providing services today. [facility] will be running dialysis today, spoke to Hayley CEVALLOS [phone], who stated they will have Mr. Andujar's chair time for 1500 or a bit later today. Contacted [employer] transportation to request a same day hospital discharge transportation, spoke to Cristo. It was [facility] to bring [facility] Contacted [facility] in [place] and requested a portable oxygen tank to be delivered to the hospital. Ashwin stated that their ice cream truck driver is doing deliveries in [facility] and will possibly leave [place] to [place] close to 1:00pm. Attending RN was made aware Contacted [facility]andra [facility], she stated they do not have availability for services at this time and possibly not until the end of next week. H&P, face sheet, HH order and DC summary was faxed to [facility] [phone] with fax co nfirmation reading [place]. [facility] [employer] services the [place] area. Contacted [facility] and spoke to Karen, she confirms receiving the fax and does not re quest additional information. She states she is working on the referral. Contacted [employer] transportation again, spoke to Sera. She has set up transportation fo r [phone] today, she was again asked to have them bring a WC, she confirmed this. Chandan marcum RN was made aware of this. Contacted Charlotte and shared the transportation time her, she was also informed of the refer ral to [facility] HH. Charlotte was very appreciative of everything. She stated she will be able to transport her dad home after his dialysis today. Plan: Home today, transported to [facility] for dialysis, then home transported by daughter. HH services provided by [facility]. Electronically signed by: Chasity Farr RN 09/15/2020 [...] to/from sit Supine to Sit, Level of [place]: modified independent Transfers Transfers Comments: set-up recliner to allow for transfer to bedside chair, similar to home set-up Additional Documentation: bed to/from chair Bed-Chair, Level of [place]: set up required Impairments: impaired balance, strength [...] 11:26 AM PDT lan of Care - Antwan hays, La G, OT - 09/15/2020 10:38 AM PDT Occupational [...] assist of his daughter who provides caregiving. P t will benefit from HHOT upon dc. Pt [...] HOB elevated Supine to Sit, Level of [place]: modified independent Transfers Pt peformed tf EOB>bedside chair to simulate tf to his wc at home. No physical assist requi red, line mgmt provided. Bed-Chair, Level of [place]: set up required Impairments: impaired balance, strength [...] 09/14/2020 2:56 PM PDT BRIEF OPERATIVE NOTE [facility] Pt. Name/Age/: Kavon Andujar 80 y.o. 1940 Med. Record Number: [id number] Date of admission: 09/12/2020 Date of Operation/Procedure: 09/14/2020 Preoperative Diagnosis: ANGINA Postoperative Diagnosis: Surgeon: Ron Orosco MD Director Decision Support: None Anesthesia Provider(s): No anesthesia staff entered. [...] Implant Name Type Inv. Item Serial No. Sales Enablement Lead Lot No. LRB No. Used Action STENT [place] SYNERGY MR 2.5 X 28 - [id number] Stent STENT [place] SYNERGY MR 2.5 X 28 [id number] [employer] KYLE - [employer] [id number] N/A 1 Implanted STENT [place] SYNERGY MR 3.5 X 16 - [id number] Stent STENT [place] SYNERGY MR 3.5 X 16 [id number] [employer]X BATTERY - [employer] [id number] N/A 1 Implanted ANGIOSEAL VIP 6F - [id number] Generic ANGIOSEAL VIP 6F TERUMO KYLE - TERU N/A 1 Implanted Counts: Instrument, sponge, and needle counts were correct prior to closure and at the con clusion of the case. Complications: None Disposition: The patient was taken to Critical Care Immediate Post-Operative Condition: Stable Electronically signed by: Ron Orosco MD, 09/14/2020, 2:56 PM PDT lan of [place] - Kemar Moulton Chaplain - 08/31 12:33 [...] outcome. Spiritual Goals/Follow-up: Follow-up PRN lan of [place] - Emelina Agarwal RRT - 09/14/2020 12:00 PM PDTDon's breath sounds are variable from diminishe d and clear to coarse with wheezes. He is not experiencing any shortness of breath at rest. He will be going to orthodontic lab technician today on the bipap for support. He [...] Control Outcome: Ongoing, not progressing lan of [facility] - Fabiola Millan RRT - 09/14/2020 3:01 AM PDTPt sitting [...] NAD at thi s time. lan of [facility] - Mary Lou Vance RN - 09/13/2020 3:45 PM PDTCase Management Assessment: CM to patient room for initial assessment. Patient alert and oriented x 3 and resting comfortably in bed completing breathing tx with RT. Patient's daughter Charlotte ) present and supportive at bedside. Demographics, PCP (Dr. Bermgan), and Pharmacy ([facility] in [place]) verified. Discharge Planning: Kavon is a disabled 80 y.o. that lives at home with his daughter in a [facility] in [place]. There are no steps to navigate and [...] that is managed through [facility] in [place], [place]. Charlotte informed this CM that she has been living with her father and has been his adult caregiver for "twenty years". It is of note that she is a [employer] and the patient's state paid adult caregiver. She does cooking, cleaning, medication management, transportation, and companionship . Kavon is a chronic HD patient and attends outpatient dialysis at [facility] in [place] Mon , Wed, Fri. Options for discharge discussed. Patient and his daughter are agreeable to and would l ikely benefit from home health RN/OT services after discharge. CM left sticky note for prov ider to order. CM contacted [facility] Home Health to learn that they do not service [place]. CM contacted [facility] ([phone]) and found that they will see the adriana ent in [place]. Patient and his daughter deny any additional questions, concerns, or needs regarding a nticipated plan to return home with new home health when medically stable. Patient's daught er will provide transportation home and be able to assist in the home as needed after discha rge. Disposition: Plan A: Home with family support and new [facility] CM to follow up after patient able to work with therapies for their recommendations. CM to follow up with [facility] (phone: [phone]/ Electronically signed by: Mary Lou Nuñez RN 09/13/2020 4:25 PM PDT eICU Note - Stefany De Santiago RN - 09/13/2020 2:24 PM [...] disagree but be calm. Spiritual Interventions: Confronted Don about his behavior. Spiritual Outcomes: He seemed [...] (Right BBF); Surgeon: Brian Orosco MD; Location: [facility] MAIN OR CHOLECYSTECTOMY COLONOSCOPY HIATAL HERNIA REPAIR [...] hours. No results for input(s): PHART, PO2ART, NFM9NUJ, EFT9HDE, BEART, T5BXEDNQ in the last 168 h ours. No results for input(s): SPECSOURCE, PHPOCB, PCO2, PO2, HCO3, BEART, TCO2, BEART, BE, POCO2 SAT in the last 168 hours. Invalid input(s): VIOWK8SK, TOAA1BQ Progress Note: Kavon oxygen saturation is SpO2: [...] were given a s scheduled. lan of Genesis Villareal, Lauryn Baez, RN - 09/12/2020 5:57 AM PDTTransfer from [place]. (+) hemoccult at [place]. Received 1unit blood from [place]. Oxycodone for pain. Lungs clear but decreas ed in bases, sats 97% on 4 liters nc.Electronically signed by Lauryn Villareal RN at 020 5:57 AM PDTdocumented in this encounter Plan of Treatment +--------+ + + + + | Date | Type | Specialty | Care Team | Description | +--------+ + + + + | 09/19/ | Office | Cardiology | OdonnellMarch, | | 2019 | Visit | | CON[employer]ER [employer] [address] | | | | | | [address], | | | | | | [place] [address] | | | | | | [phone] | | | | | | | [...] [place] | | | | | | [address] | | | | | | | | +--------+ + + + + | 10/30/ | Virtual | Nephrology | Farrukh Acuna MD | | | 2019 | Office | | [address] | | | | Visit | | [address] [address] | | | | | | [address] | | | | | | | [...] 109 mg/dL | [facility] | | | POC [...] [address] | [place] | [phone] | | [facility] | | [address] | | | - LABORATORY | | [...] | | | | | | [employer] | | | | | [...] + + | Performing | Address | City/State/[facility]ode | Phone Number | | Organization | | | | + + + + + | [facility]. | [address] | [place] | [phone] | | [facility] | | [address] | | | - LABORATORY | | [...] + | [facility] | [address] | [place] | [phone] | | [facility] | | [address] | | | - LABORATORY | | [...] by | | | | | | ARIADNE WATKINS, AYAH ([id number]) | | | | | | on [...] mL/min/1.73m2 | [facility] | | | [place] | RATE,ESTIMATED | | MEDICAL | | | | mL/min/1.47r8Zvyr than | | CENTER - | | [...] | | GLOMERULAR FILTRATION | mL/min/1.73m2 | [facility] | | | [place] | RATE,ESTIMATED | | MEDICAL | | | | mL/min/1.58v7Gjqb than | | CENTER - | | [...] 3.2 | 3.2 - 4.8 g/dL | [facility] [...] [address] | [place] | [phone] | | [facility] | | [address] | | | - LABORATORY | | [...] | nRBC | | K/uL | [facility] | | | | | | MEDICAL [...] [address] | [place] | [phone] | | [facility] | | [address] | | | - LABORATORY | | [...] | | | | | | [employer] | | | | | [...] [address] | [place] | [phone] | | [facility] | | [address] | | | - LABORATORY | | [...] | | | | | | [employer] | | | | | [...] + | [facility] | [address] | [place] | [phone] | | [facility] | | [address] | | | - LABORATORY | | [...] ST. | [address] | [place], [place] | [phone] | | [facility] | | [address] | | | - LABORATORY | | [...] by | | | | | | ARIADNE WATKINS, AYAH ([id number]) | | | | | | on [...] + | [facility] | [address] | [place] | [phone] | | [facility] | | [address] | | | - LABORATORY | | | | + + + + + Troponin I (09/14/2020 3:21 PM PDT) + + + + + + | Component | Value | Ref Range | Performed | Pathologist | | | | | At | Signature | + + + + + + | Troponin I | 1.38 ()Comment: | <0.06 ng/mL | [facility] | | | | Comment:Reference | | [...] | | | | | | [employer] | | | | | [...] ST. | [address] | [place] | [phone] | | [facility] | | [address] | | | - LABORATORY | | [...] | | fluoroscopic guidance toward calcification. 6 Kazakh sheath was | | | placed. Coronary [...] and achieved with medication listed by the Migration Specialist nurse | | | under my supervision. [...] [address] | [place] | [phone] | | [facility] | | [address] | | | - LABORATORY | | [...] | | Clotting | | second(s) | [facility] | | | Time, POC | [...] ST. | [address] | [place], [place] | [phone] | | [facility] | | [address] | | | - LABORATORY | | [...] + | [facility] | [address] | [place] | [phone] | | [facility] | | [address] | | | - LABORATORY | | | | + + + + + Troponin I (09/14/2020 9:16 AM PDT) + + + + + + | Component | Value | Ref Range | Performed | Pathologist | | | | | At | Signature | + + + + + + | Troponin I | 1.03 ()Comment: | <0.06 ng/mL | [facility] | | | | Comment:Reference | | [facility] | | | | Ranges: 0.00-0.06 = [...] | | | | | | [employer] | | | | | [...] + | [facility] | [address] | [place] | [phone] | | [facility] | | [address] | | | - LABORATORY | | [...] | | | POC | | | [facility] | | | | | [...] [address] | [place] | [phone] | | [facility] | | [address] | | | - LABORATORY | | [...] (H) | 9 - 23 mg/dL | [facility] | | | | | | [facility] | | | | | | MEDICAL | | | | | | CENTER - | | | | | | LABORATORY | | + + + + + + | Creatinine | 3.49 (H) | 0.70 - 1.30 | [facility] | | | | | mg/dL | [facility] | | | | | | MEDICAL | | | | | | CENTER - | | | | | | LABORATORY | | + + + + + + | eGFR, | 17 (L)Comment: | >=60 | [facility] | | | non- | GLOMERULAR FILTRATION | mL/min/1.73m2 | [facility] | | | [place] | RATE,ESTIMATED | | MEDICAL | | | | mL/min/1.85u7Qtwc than | | CENTER - | | | | 60 Chronic kidney | | LABORATORY | | | | disease,if found over a | | | | | | 3-month period.Less than | | | | | | 15 Kidney failure | | | | + + + + + + | eGFR, | 21 (L)Comment: | >=60 | [facility] | | | | GLOMERULAR FILTRATION | mL/min/1.73m2 | [facility] | | | [place] | RATE,ESTIMATED | | MEDICAL | | | | mL/min/1.71w9Ihsn than | | CENTER - | | [...] 3.4 | 3.2 - 4.8 g/dL | [facility] | | | | [...] [address] | [place] | [phone] | | [facility] | | [address] | | | - LABORATORY | | [...] + | [facility] | [address] | [place] | [phone] | | [facility] | | [address] | | | - LABORATORY | | | | + + + + + Troponin I (09/14/2020 3:19 AM PDT) + + + + + + | Component | Value | Ref Range | Performed | Pathologist | | | | | At | Signature | + + + + + + | Troponin I | 1.42 (HH)Comment: | <0.06 ng/mL | [facility] | | [...] | | | | | | [employer] | | | | | [...] [address] | [place] | [phone] | | [facility] | | [address] | | | - LABORATORY | | [...] + | Performed at: 01 - [facility] [place] [address], | REFERENCE LAB | | [place], [place] [id number] Carpenter Assembler: Thony Valdes MD, Phone: | [facility] | | [phone] | | + + + + + + + + | Performing | Address | City/State/Zipcode | Phone Number | | Organization | | | | + + + + + | REFERENCE LAB | [address] | [place], [place] | [phone] | | [facility] | [facility] | [address] | | + + + + + [...] | | | | | | [employer] | | | | | [...] [address] | [place] | [phone] | | [facility] | | [address] | | | - LABORATORY | | [...] + | [facility] | [address] | [place] | [phone] | | [facility] | | [address] | | | - LABORATORY | | [...] [address] | [place] | [phone] | | [facility] | | [address] | | | - LABORATORY | | [...] [address] | [place] | [phone] | | [facility] | | [address] | | | - LABORATORY | | | | + + + + + Troponin I (09/13/2020 2:09 PM PDT) + + + + + + | Component | Value | Ref Range | Performed | Pathologist | | | | | At | Signature | + + + + + + | Troponin I | 1.79 ()Comment: | <0.06 ng/mL | [facility] | | | | Comment:Reference | | [facility] | | | | Ranges: 0.00-0.06 = [...] | | | | | | [employer] | | | | | [...] + + | Performing | Address | City/State/[facility]ode | Phone Number | | Organization | | | | + + + + + | [facility] | [address] | [place] | [phone] | | [facility] | | [address] | | | - LABORATORY | | | | + + + + + POC Glucose (09/13/2020 11:52 AM PDT) + +-------+ + + + | Component | Value | Ref Range | Performed | Pathologist | | | | | At | Signature | + +-------+ + + + | Glucose, | 105 | 70 - 109 mg/dL | [facility] [...] [address] | [place] | [phone] | | [facility] | | [address] | | | - LABORATORY | | [...] | | | | | | [employer] | | | | | [...] [address] | [place] | [phone] | | [facility] | | [address] | | | - LABORATORY | | [...] + | [facility] | [address] | [place] | [phone] | | [facility] | | [address] | | | - LABORATORY | | [...] | | | | AYAH RON MD ([id number]) | | | | | | on [...] 3.71 (H) | 0.70 - 1.30 | [facility] | | | | | mg/dL | [facility] | | | | | | MEDICAL | | | | | | CENTER - | | | | | | LABORATORY | | + + + + + + | eGFR, | 16 (L)Comment: | >=60 | [place] | | | non- | GLOMERULAR FILTRATION | mL/min/1.73m2 | [facility] | | | [place] | RATE,ESTIMATED | | MEDICAL | | | | mL/min/1.21z4Wukv than | | CENTER - | | | | 60 Chronic kidney | | LABORATORY | | | | disease,if found over a | | | | | | 3-month period.Less than | | | | | | 15 Kidney failure | | | | + + + + + + | eGFR, | 19 (L)Comment: | >=60 | [facility] | | | | GLOMERULAR FILTRATION | mL/min/1.73m2 | [facility] | | | [place] | RATE,ESTIMATED | | MEDICAL | | | | mL/min/1.98c6Onak than | | CENTER - | | [...] [address] | [place] | [phone] | | [facility] | | [address] | | | - LABORATORY | | | | + + + + + Troponin I (09/13/2020 2:56 AM PDT) + + + + + + | Component | Value | Ref Range | Performed | Pathologist | | | | | At | Signature | + + + + + + | Troponin I | 3.25 ()Comment: | <0.06 ng/mL | [facility] | | | | Comment:Reference | | [facility] | | | | Ranges: 0.00-0.06 = [...] | | | | | | [employer] | | | | | [...] + | [facility] | [address] | [place] | [phone] | | [facility] | | [address] | | | - LABORATORY | | [...] method in use as of | | [facility] | | | | January 27, 2019. [...] [address] | [place] | [phone] | | [facility] | | [address] | | | - LABORATORY | | [...] (L) | 20.0 - 55.0 % | [facility] | | | SATURATION | | | [facility] | | [...] [address] | [place] | [phone] | | [facility] | | [address] | | | - LABORATORY | | | | + + + + + Ferritin (09/13/2020 2:56 AM PDT) + +---------+ + + + | Component | Value | Ref Range | Performed | Pathologist | | | | | At | Signature | + +---------+ + + + | FERRITIN | 420 (H) | 11 - 307 ng/mL | [facility] | | | | | [...] + | [facility] | [address] | [place] | [phone] | | [facility] | | [address] | | | - LABORATORY | | [...] | | Cells | | | [facility] | | [...] ST. | [address] | [place], [place] | [phone] | | [facility] | | [address] | | | - LABORATORY | | [...] [address] | [place] | [phone] | | [facility] | | [address] | | | - LABORATORY | | [...] ST. | [address] | [place], [place] | [phone] | | [facility] | | [address] | | | - LABORATORY | | [...] | | | | | | [employer] | | | | | [...] [address] | [place] | [phone] | | [facility] | | [address] | | | - LABORATORY | | [...] | | | | | | [employer] | | | | | [...] + | [facility] | [address] | [place] | [phone] | | [facility] | | [address] | | | - LABORATORY | | | | + + + + + Troponin I (09/12/2020 8:37 AM PDT) + + + + + + | Component | Value | Ref Range | Performed | Pathologist | | | | | At | Signature | + + + + + + | Troponin I | 0.93 ()Comment: | <0.06 ng/mL | [place] | | | | Comment:Reference | | [facility] | | | | Ranges: 0.00-0.06 [...] | | | | | | [employer] | | | | | [...] [address] | [place] | [phone] | | [facility] | | [address] | | | - LABORATORY | | | | + + + + + Red Blood Cells (PRBC) - Crossmatch (09/12/2020 6:56 AM PDT) + + + + + + | Component | Value | Ref Range | Performed | Pathologist | | | | | At | Signature | + + + + + + | Product | [id number] | | [facility] | | | Code | | | [facility] | | | | | | MEDICAL | | | | | | CENTER - | | | | | | BLOOD BANK | | + + + + + + | UNIT # | [id number] | | [facility] | | | | [...] + + + + | Blood | [id number] | | [facility] | | | Product [...] [address] | [place] | | | [facility] | | [address] | | | - BLOOD BANK | | | | + + + + + Red Blood Cells (PRBC) - Crossmatch (09/12/2020 5:48 AM PDT) + + + + + + | Component | Value | Ref Range | Performed | Pathologist | | | | | At | Signature | + + + + + + | Product | [id number] | | [facility] | | | Code | | | [facility] | | | | | | MEDICAL | | | | | | CENTER - | | | | | | BLOOD BANK | | + + + + + + | UNIT # | [id number] | | [facility] | | | | [...] + + + + | Blood | [id number] | | [facility] | | | Product | | | [facility] | | | Expiration | | | MEDICAL | | | Date and | | | CENTER - | | | Time | | | BLOOD BANK | | + + + + + + | Product | 1700 | | [facility] | | | Blood Type | | | [facility] | | | Barcode | | | [...] [address] | [place] | | | [facility] | | [address] | | | - BLOOD BANK | [...] | | | | | | [employer] | | | | | [...] [address] | [place] | [phone] | | [facility] | | [address] | | | - LABORATORY | | | | + + + + + Magnesium (09/12/2020 4:30 AM PDT) + +-------+ + + + | Component | Value | Ref Range | Performed | Pathologist | | | | | At | Signature | + +-------+ + + + | Magnesium | 2.0 | 1.6 - 2.6 mg/dL | [facility] | | | | [...] [address] | [place] | [phone] | | [facility] | | [address] | | | - LABORATORY | | [...] | | | | | WBCs | [facility] | | | | [...] + | [facility] | [address] | [place] | [phone] | | [facility] | | [address] | | | - LABORATORY | | [...] | GLOMERULAR FILTRATION | mL/min/1.73m2 | [facility] | | | [place] | RATE,ESTIMATED | | MEDICAL | | | | mL/min/1.52k6Nyvz than | | CENTER - | | [...] | GLOMERULAR FILTRATION | mL/min/1.73m2 | [facility] | | | [place] | RATE,ESTIMATED | | MEDICAL | | | | mL/min/1.38m5Sxfs than | | CENTER - | | [...] + | [facility] | [address] | [place] | [phone] | | [facility] | | [address] | | | - LABORATORY | | [...] | | | Screen | | | [facility] | | | | | | MEDICAL | | | | | | [place] - | | | | | | [...] St | [place] | | | [facility] | | [address] | | | - BLOOD BANK | [...] MD | | | | | | ([id number]) on 09/12/2020 | | | | | [...] | + +---------+ + + Coronavirus (COVID-19) NAAT (09/12/2020 2:49 AM PDT) + + + [...] + | [facility] | [address] | [place] | [phone] | | [facility] | | [address] | | | - LABORATORY | | | | + + + + + Culture, MRSA (09/12/2020 2:41 AM PDT) + + + + + + | Component | Value | Ref Range | Performed | Pathologist | | | | | At | Signature | + + + + + + | Culture | Negative for MRSA by | | [facility] | | | | chromogenic agar method. | | [facility] | | | | | | MEDICAL [...] ST. | [address] | [place], [place] | [phone] | | [facility] | | [address] | | | - LABORATORY | | [...] + | Diagnosis | + + | NSTEMI (non-ST elevated myocardial infarction) (HCC) Acute myocardial infarction, | | subendocardial infarction, episode of care unspecified | + + documented in this encounter [...] CONTINUOUS PRN, hypoglycemia, | | | Starting 09/12/20 at 0239, | | | Start infusion [...] | + +---+ + +-------+ +--------+---+---+ | fentaNYL (PF) injection ONCE | Given | 09/14/20 | 50 mcg | | | | PRN, Starting Fely 09/14/20 at | | 20 2:09 | | | | | 1320, Intra-op | | PM PDT | | | | + +-------+ +--------+---+---+ +-------+ +--------+---+---+ | Given | 09/14/20 | 25 mcg | | | | | 20 1:24 | | | | | | PM PDT | | | | +-------+ +--------+---+---+ | Given | 09/14/20 | 25 mcg | | | | | 20 1:20 | | | | | | PM PDT | | | | +-------+ +--------+---+---+ +---+---+ | | | +---+---+ + +-------+ +--------+---+---+ | heparin 1,000 units/mL | Given | 09/14/20 | 8,000 | | | | injection ONCE PRN, Starting Fely | | 20 1:30 | Units | | | | 09/14/20 at 1330, Intra-op | | PM PDT | | | | + +-------+ +--------+---+---+ + +---+ | | | + +---+ | HYDROmorphone (DILAUDID) | | | injection 0.2-0.4 mg 0.2-0.4 mg, | | | Intravenous, EVERY 2 HOURS PRN, | | | Pain, Starting 09/12/20 at | | | 1748 | | + +---+ | | | + +---+ + +-------+ +---------+---+ + | insulin lispro (humaLOG | Given | 09/15/20 | 4 Units | | Arm-Left | | SHADE ZARATE) injection (pen) | | 20 11:52 | [...] | | | | AC, NPO, Daytime 2490-4715 | | | | | | | Use NIGHT DOSE for doses | | | | | | | scheduled: HS, Nighttime | | | | | | | 9586-8284 If the BG is not | | [...] | | +---+---+ + +-------+ +---------+---+---+ | iohexol (OMNIPAQUE 350) 350 | Given | 09/14/20 | 140 mLs | | | | mg/mL injection ONCE PRN, | | 20 2:09 | | | | | Starting Fely 09/14/20 at 1409, | | PM PDT | | | [...] | | | | | modification) on 09/13/20 at | | | | | | [...] PDT | | | | +-------+ +-------+---+---+ + +---+ | | | + +---+ | lidocaine (PF) 1% injection 1 | | | mL 1 mL, Intradermal, DIALYSIS - | | | PRN, cannulation, Starting Wed | | | 09/13/20 at 0651 | | + +---+ | | | + +---+ + +-------+ +-------+---+ + | lidocaine buffered 0.9% | Given | 09/14/20 | 5 mLs | | Groin-Ri | | injection ONCE PRN, Starting Fely | | 20 1:22 | | | ght | | 09/14/20 at 1322, Intra-op | | PM PDT | | | | + +-------+ +-------+---+ + +---+---+ | | | +---+---+ + +-------+ +------+---+---+ | midazolam (VERSED) 1 mg/mL | Given | 09/14/20 | 1 mg | | | | injection ONCE PRN, Starting Fely | | 20 2:13 | | | | | 09/14/20 at 1320, Intra-op | | PM PDT | | | | + +-------+ +------+---+---+ +-------+ +------+---+---+ | Given | 09/14/20 | 1 mg | | | | | 20 1:55 | | | | | | PM PDT | | | | +-------+ +------+---+---+ | Given | 09/14/20 | 1 mg | | | | | 20 1:24 | | | | | | PM PDT | | | | +-------+ +------+---+---+ + +---+ | | | + +---+ | nitroglycerin (NITROSTAT) SL | | | tablet 0.4 mg 0.4 mg, | | | Sublingual, EVERY 5 MIN PRN, | | | Chest pain, Starting Fri09/12/20 | | | at 1653, Maximum of [...] +-------+ +-------+---+---+ | Given | 09/14/20 | 40 mg | | | | | 20 8:33 | | | | | | AM PDT | | | | +-------+ +-------+---+---+ | Given | 09/13/20 | 40 mg | | | | | 20 8:56 | | | | | | AM PDT | | | | +-------+ +-------+---+---+ +---+---+ | | | +---+---+ + +-------+ +---------+---+---+ | phenylephrine (BIORPHEN) 0.1 | Given | 09/14/20 | 200 mcg | | | | mg/mL injection ONCE PRN, | | 20 1:54 | | | | | Starting Fely 09/14/20 at 1354, | | PM PDT | | | | | Intra-op | | | | | | + +-------+ +---------+---+---+ +---+---+ | | | +---+---+ documented in this encounter
--- OUTSIDE RECORDS SUMMARY | ~2020-09-15 | XMS | Encounter Summary ---
Demographics + + + | Address | [address] | | | [place] [address] | + + + | Home Phone [...] Team Providers + +------+ + | Care Pediatric Acute Care Unit Nurse Name | Role | Phone | [...] (OTHER) | | 2019 | Procedure | [facility] | [address] | | | | | OPERATING RO[address] | [place], [place] | | | | | [place] | [address] | | | | | [place], [place] | [phone] | | | | | [address] | | | | | | [phone] | | | +--------+ + + + [...] | | | | | | [place] [address] | | | | | | [phone] | | | | | | | [...] [place] | | | | | | [address] | | | | | | | | +--------+ + + + + | 10/30/ | Virtual | Nephrology | Farrukh Acuna MD | | | 2019 | Office | | [address] | | | | Visit | | [address] | | | | | | [address] | | | | | | | | +--------+ + + + + documented as of this encounter Visit Diagnoses Not on filedocumented in this encounter"
--- OUTSIDE RECORDS SUMMARY | ~2020-09-15 | XMS | Encounter Summary ---
Demographics + + + | Address | [address] | | | [place] [address] | + + + | Home Phone [...] Team Providers + +------+ + | Care Housekeeper Child Care Name | Role | Phone | + [...] + + | 08/10/ | Telephone | [facility] | Brian Orosco MD | Other (orders ) | | 2019 | | VASCULAR SURGERY | [address] | | | | | [address] | [place] [address] [place], [place] | | | | | [place], [place] | [address] | | | | | [address] | [phone] | | | | | [phone] | | | +--------+ + + + [...] transfer the call to a [employer] job [employer] was caller made aware that if at [...] [place], | | | | | | [place] [address] | | | | | | [phone] | | | | | | | | +--------+ + + + + | 09/19/ | Clinical | Cardiology | | | 2019 | Support | | | | +--------+ + + + + | 10/03/ | Office | Cardiology | Ron Orosco MD | | | 2019 | Visit | | [address] | | | | | | [place] | | | | | | [address] | | | | | | | | +--------+ + + + + | 10/30/ | Virtual | Nephrology | Farrukh Acuna MD | | | 2019 | Office | | [address] | | | | Visit | | [address] [facility] | | | | | | [address] | | | | | | | [...]
--- OUTSIDE RECORDS SUMMARY | ~2020-09-15 | XMS | Encounter Summary ---
Demographics + + + | Address | [address] | | | [place] [address] | + + + | Home Phone [...] Team Providers + +------+ + | Care Illustrator Set Name | Role | Phone | + +------+ + PCP | Unavailable | + +------+ + Encounter Details +--------+ + + + + | Date | Type | Department | Care Team | Description | +--------+ + + + + | 05/22/ | [facility] | [facility] | Nelson Lutz MD | | | 1998 | Encounter | MED CTR GENERIC OP | [address], [place] | | | | | CONV DEPT [address] | [address] | | | | | [place], | [address] | | | | | [place] [address] | | | | | | [phone] | | | +--------+ + + + [...] | | | | | | [place] [address] | | | | | | [phone] | | | | | | | [...] [place] | | | | | | [id number] | | | | | | | | +--------+ + + + + | 10/30/ | Virtual | Nephrology | Farrukh Acuna MD | | | 2019 | Office | | [address] | | | | Visit | | [address] [facility] | | | | | | [address] | | | | | | | | +--------+ + + + + documented as of this encounter Visit Diagnoses Not on filedocumented in this encounter"
--- OUTSIDE RECORDS SUMMARY | ~2020-09-15 | XMS | Encounter Summary ---
Demographics + + + | Address | [address] | | | [place] [address] | + + + | Home Phone [...] Team Providers + +------+ + | Care Np Name | Role | Phone | + +------+ + | Rahul Silva MD | PCP | | + +------+ + Encounter Details +--------+ + + + + | Date | Type | Department | Care Team | Description | +--------+ + + + + | 10/03/ | Orders Only | [facility] | Conversion | | | 2015 | | [facility] [place] | Transaction, | | | | | [address] | Provider Unknown | | | | | [address] [place], [place] | [phone] | | | | | [address] | (Fax) | | | | | [phone] | | | +--------+ + + + [...] | | | | | | [place] [address] | | | | | | [phone] | | | | | | | [...] [place] | | | | | | [address] | | | | | | | | +--------+ + + + + | 10/30/ | Virtual | Nephrology | Farrukh Acuna MD | | | 2019 | Office | | [address] | | | | Visit | | [address] [place] | | | | | | [address] | | | | | | | [...] | | | LAB | | | [place] | | | | | + + [...]
--- OUTSIDE RECORDS SUMMARY | ~2020-09-15 | XMS | Encounter Summary ---
Demographics + + + | Address | [address] | | | [place] [address] | + + + | Home Phone [...] + +------+ + | Care Business Continuity Coordinator Name | Role | Phone | + +------+ + | Mehrdad Bergman | PCP | | + +------+ + Encounter Details +--------+ + + + + | Date | Type | Department | Care Team | Description | +--------+ + + + + | 03/28/ | Orders Only | [facility] | Farrukh Acuna MD | Essential | | 2020 | | NEPHROLOGY [place] | [address] | hypertension | | | | [address] | [address] [place], [place] | (Primary Dx); Anemia | | | | [address] | [address] | of chronic kidney | | | | [place], [place] | | failure, stage 5 | | | | [address] | | (HCC); Persistent | | | | [phone] | | proteinuria; CKD | | | | | | (chronic kidney | | | | | | disease) stage 5, | | | | | | GFR less than 15 | | | | | | ml/min ([facility]) | +--------+ + + + [...] | | | | | | [place] [address] | | | | | | [phone] | | | | | | | [...] [place] | | | | | | [id number] | | | | | | | | +--------+ + + + + | 10/30/ | Virtual | Nephrology | Farrukh Acuna MD | | 2019 | Office | | [address] | | | | Visit | | [address] [place], [place] | | | | | | [address] | | | | | | | [...] | 03/28/2021 | | | | | ([facility]) Persistent | | | | | | proteinuria CKD | | | | | | (chronic kidney | | | | | | disease) stage 5, | | | | | | GFR less than 15 | | | | | | ml/min ([facility]) | | + +------+--------+ + + | CBC with | Lab | Routin | Essential | weekly for 3 | | Differential | | e | hypertension Anemia | Occurrences starting | | | | | of chronic kidney | 03/28/2020 until | | | | | failure, stage 5 | 03/28/2021 | | | | | ([facility]) Persistent | | | | | | proteinuria CKD | | | | | | (chronic kidney | | | | | | disease) stage 5, | | | | | | GFR less than 15 | | | | | | ml/min ([facility]) | | + +------+--------+ + + | Renal Function Panel | Lab | Routin | Essential | Expected: | | | | e | hypertension Anemia | 05/28/2020, Expires: | | | | | of chronic kidney | 03/28/2021 | | | | | failure, stage 5 | | | | | | ([facility]) Persistent | | | | [...] 5 | | | | | | ([facility]) Persistent | | | | [...] 5 | | | | | | ([facility]) Persistent | | | | [...] 5 | | | | | | ([facility]) Persistent | | | | [...] 5 | | | | | | ([facility]) Persistent | | | | | | proteinuria CKD | | | | | | (chronic kidney | | | | | | disease) stage 5, | | | | | | GFR less than 15 | | | | | | ml/min ([facility]) | | + +------+--------+ + + | Protein/Creatinine | Lab | Routin | Essential | Expected: | | Ratio, Urine | | e | hypertension Anemia | 05/28/2020, Expires: | | | | | of chronic kidney | 03/28/2021 | | | | | failure, stage 5 | | | | | | ([facility]) Persistent | | | | | | proteinuria CKD | | | | | | (chronic kidney | | | | | | disease) stage 5, | | | | | | GFR less than 15 | | | | | | ml/min ([facility]) | | + +------+--------+ + + documented as of this encounter Visit Diagnoses + + | Diagnosis | + + | Essential hypertension - Primary Unspecified essential hypertension | + + | Anemia of chronic kidney failure, stage 5 ([facility]) | + + | Persistent proteinuria Proteinuria | + + | CKD (chronic kidney disease) stage 5, GFR less than 15 ml/min (HCC) Chronic kidney | | disease, Stage V | + + documented in this encounter"
--- OUTSIDE RECORDS SUMMARY | ~2020-09-15 | XMS | Encounter Summary ---
Demographics + + + | Address | [address] | | | [place] [address] | + + + | Home Phone [...] Providers + +------+ + | Care Business System Consultant Name | Role | Phone | [...] | | | [address] | [place] [address] | | | | | [place] [address] | | | | | | [phone] | | | +--------+ + + + [...] | | | | | | [place] [address] | | | | | | [phone] | | | | | | | [...] [place] | | | | | | [id number] | | | | | | | | +--------+ + + + + | 10/30/ | Virtual | Nephrology | Farrukh Acuna MD | | | 2020 | Office | | [address] | | | | Visit | | [address] [place], [place] | | | | | | [address] | | | | | | | [...]
--- OUTSIDE RECORDS SUMMARY | ~2020-09-15 | XMS | Encounter Summary ---
Demographics + + + | Address | [address] | | | [place] [address] | + + + | Home Phone [...] Team Providers + +------+ + | Care Gold Beater Name | Role | Phone | + +------+ + | Rahul Silva MD | PCP | | + +------+ + Encounter Details +--------+ + + + + | Date | Type | Department | Care Team | Description | +--------+ + + + + | 10/08/ | Orders Only | [facility] | Farrukh Acuna MD | | | 2018 | | NEPHROLOGY [place] | [address] | | | | | [address] | [address] [place], [place] | | | | | [address] [place], [place] | [address] | | | | | [address] | | | | | | [phone] | | | +--------+ + + + [...] | | | | | | [place] [address] | | | | | | [phone] | | | | | | | [...] [place] | | | | | | [address] | | | | | | | | +--------+ + + + + | 10/30/ | Virtual | Nephrology | Farrukh Acuna MD | | | 2019 | Office | | [address] | | | | Visit | | [address] [place] | | | | | | [address] | | | | | | | [...] | | | LAB | | | Prydeinig | | | | | + + [...]
--- OUTSIDE RECORDS SUMMARY | ~2020-09-15 | XMS | Encounter Summary ---
Demographics + + + | Address | [address] | | | [place] [address] | + + + | Home Phone [...] Team Providers + +------+ + | Care Windmill Mechanic Name | Role | Phone | [...] + + | 08/26/ | Office | [facility] | Trisha Conner DNP | CKD (chronic kidney | | 2019 | Visit | VASCULAR SURGERY | [address] | disease) stage 5, | | | | [address] | [place], [place] | GFR less than 15 | | | | [place], [place] | [address] | ml/min (HCC) | | | | [address] | | (Primary Dx) | | | | [phone] | Brian Orosco MD | | | | | | [address] | | | | | | [place], [place] | | | | | | [address] | | | | | | [phone] | | | | | | | [...] CV: No peripheral edema, rate regular SKIN: [place], warm, dry without rash/lesion MS: ROM not [...] CV: No peripheral edema, rate regular SKIN: [place] [address], warm, dry without rash/lesion MS: ROM not [...] | | | | | | [address] [place], | | | | | | [place] [address] | | | | | | [phone] | | | | | | | [...] [place] | | | | | | [address] | | | | | | | | +--------+ + + + + | 10/30/ | Virtual | Nephrology | Farrukh Acuna MD | | | 2019 | Office | | [address] | | | | Visit | | [address] [place], [place] | | | | | | [address] | | | | | | | [...] | | | | than 15 ml/min ([facility]) | | + +------+--------+ + + documented as of this encounter Visit Diagnoses + + | Diagnosis | + + | CKD (chronic kidney disease) stage 5, GFR less than 15 ml/min ([facility]) - Primary Chronic | | kidney disease, Stage V | + + documented in this encounter"
--- OUTSIDE RECORDS SUMMARY | ~2020-09-15 | XMS | Encounter Summary ---
Demographics + + + | Address | [address] | | | [place] [address] | + + + | Home Phone | | + + + | Preferred Language | Unknown | + + + | Marital Status | Single | + + + | Samaritan Affiliation | PRO | + + + [...] [place] | | | | | [address] | | + + + + + Care Team Providers + +------+ + | Care Body Shop Manager Name | Role | Phone [...] | | | [facility], [address] [place] [address] | | | | | | [place], [place] | | | | | | [address] | | | | | | [phone] | | | +--------+ + + + [...] as of this encounter Discharge Summaries Interface, Product Line Manager In - 12/22/2006 3:12 AM PST [place] [address] [place], [place] [address] [facility] MEDICAL SUMMARY OF HOSPITALIZATION Med Rec No.: [id number] Admission Date: 04/06/98 Name: Kavon Andujar Discharge Date: 04/08/98 STAFF PHYSICIAN: Galo Arora M.D. Dealer Sales Manager, Division of Plastic & Reconstructive Surgery PRINCIPAL FINAL DIAGNOSIS: Status post resection of neuroma, left above-knee amputation. ADDITIONAL DIAGNOSIS(ES): None. PRINCIPAL PROCEDURE: Resection of neuroma, left above-knee amputation stump. REASON FOR ADMISSION: Mr. Anduajr is a gentleman who sustained a left [...] M.D. Resident, Plastic Surgery Galo Arora M.D. Dealer Sales Manager, Division of Plastic & Reconstructive Surgery QIANA/charo P cc: GRIFFIN ASHER MD [address] [facility] [place] [address] documented in this encounter Plan of Treatment Not on filedocumented as of this encounter Visit Diagnoses Not on filedocumented in this encounter"
--- OUTSIDE RECORDS SUMMARY | ~2020-09-15 | XMS | Encounter Summary ---
Demographics + + + | Address | [address] | | | [place] [address] | + + + | Home Phone [...] Team Providers + +------+ + | Care Referral Agent Name | Role | Phone | [...] [address] | | | | | [place], [place] | [place], [place] | | | | | [address] | [address] | | | | | [phone] | [phone] | | | | | | | [...] | | | | | | [place] [address] | | | | | | [phone] | | | | | | | [...] [place] | | | | | | [address] | | | | | | | | +--------+ + + + + | 10/30/ | Virtual | Nephrology | Farrukh Acuna MD | | | 2019 | Office | | [address] | | | | Visit | | [address] [place] | | | | | | [address] | | | | | | | [...]
--- OUTSIDE RECORDS SUMMARY | ~2020-09-15 | XMS | Encounter Summary ---
Demographics + + + | Address | [address] | | | [place] [address] | + + + | Home Phone [...] Providers + +------+ + | Care Research Animal Attendant Name | Role | Phone | [...] + + | 07/21/ | Documentati | [facility] | Simon, | Results (07/19/19) | | 2019 | on | NEPHROLOGY [place] | [facility] | | | | | [address] | Special Education Professor | | | | | [address] [facility] [place] | | | | | | [address] | | | | | | [phone] | | | +--------+ + + + [...] | | | | | | [place] [address] | | | | | | [phone] | | | | | | | [...] [place] | | | | | | [address] | | | | | | | | +--------+ + + + + | 10/30/ | Virtual | Nephrology | Farrukh Acuna MD | | | 2019 | Office | | [address] | | | | Visit | | [address] [place] | | | | | | [id number] | | | | | | | [...]
--- OUTSIDE RECORDS SUMMARY | ~2020-09-15 | XMS | Encounter Summary ---
Demographics + + + | Address | [address] | | | [place] [address] | + + + | Home Phone [...] Team Providers + +------+ + | Care Jeep Mechanic Name | Role | Phone | + +------+ + | Rahul Silva MD | PCP | | + +------+ + Encounter Details +--------+ + + + + | Date | Type | Department | Care Team | Description | +--------+ + + + + | 09/07/ | Preadmit | [facility] | Brian Orosco MD | | | 2019 | Visit | C[facility] | [address] | | | | | CLINIC [address] | [place], [place] | | | | | [place], [place] | [address] | | | | | [address] | [phone] | | | | | [phone] | | | +--------+ + + + [...] | Blood Pressure | 137/64 | 09/07/2019 1:53 PM | | | | | PDT | | + + + + + | Pulse | 62 | 09/07/2019 1:53 PM | | | | | PDT | | + + + + + | Temperature | - | - | | + + + + + | Respiratory Rate | - | - | | + + + + + | Oxygen Saturation | 94% | 09/07/2019 1:53 PM | | | | | PDT | | + + + + + | Inhaled Oxygen | - | - | | | Concentration | | | | + + + + + | Weight | 81.6 kg (179 lb 14.3 | 09/07/2019 1:53 PM | | | | oz) | PDT | | + + + + + | Height | 172.7 cm (5' 8") | 09/07/2019 1:53 PM | | | | | PDT | | + + + + + | Body Mass Index | 27.35 | 09/07/2019 1:53 PM | | | | | PDT | | + + + + + documented in this encounter Patient Instructions Instructions Wilfred Duarte RN - 09/07/2019Formatting of this note might be different fr om the original. Outpatient Medications Marked as Taking for the 09/07/19 encounter (Preadmit Visit) with [facility] ROOM 4 Medication Sig Instructions acyclovir (ZOVIRAX) [...] to check-in desk and are in the [facility] waiting room. AttachmentsThe following attachments cannot be sent through Care Everywhere.Hemodialysis Ac cess, Creating a (Russian)Dialysis, Arteriovenous (AV) Fistula for (Russian)documented in th is encounter Plan of Treatment +--------+ + + + + | Date | Type | Specialty | Care Team | Description | +--------+ + + + + | 09/19/ | Office | Cardiology | BlasMarch, | | | 2019 | Visit | | TOOL MACHINIST [address] | | | | | | DR [place], | | | | | | [place] [address] | | | | | | [phone] | | | | | | | [...] [place] | | | | | | [address] | | | | | | | | +--------+ + + + + | 10/30/ | Virtual | Nephrology | Farrukh Acuna MD | | | 2019 | Office | | [address] | | | | Visit | | [address] [place] | | | | | | [address] | | | | | | | [...] this encounter Results Basic Metabolic Panel (09/07/2019 1:58 PM PDT) + + + + + [...] 12 (L)Comment: GFR <60: | >60 | [facility] | | | GFR | CHRONIC KIDNEY [...] | | | | | | MDRD IDMS traceable | | | | | | equation.Testing | | | | | | performed at [facility], [address] | | | | | | [facility], | | | | | | [place] [address] | | | | + + + + + + + + | Specimen | + + | Blood | + + + + + + + | Performing | Address | City/State/Zipcode | Phone Number | | Organization | | | | + + + + + | [facility] | [address] | [place] [address] | [phone] | + + + + + CBC with Differential (09/07/2019 1:58 PM PDT) + + + + + [...] + + + | Red Blood | 3.66 (L) | 4.20 - 5.70 | [facility] | | | Cells | | M/uL | LABORATORY | | [...] | | | Absolute | performed at [facility], [address] | K/uL | LABORATORY | | | | [place], | | | | | | [place] [address] | | | | + + + + + + + + | Specimen | + + | Blood | + + + + + + + | Performing | Address | City/State/Zipcode | Phone Number | | Organization | | | | + + + + + | [facility] | [address] | [place] [address] | [phone] | + + + + + ECG [...]
--- OUTSIDE RECORDS SUMMARY | ~2020-09-15 | XMS | Encounter Summary ---
Demographics + + + | Address | [address] | | | [place] [address] | + + + | Home Phone [...] Providers + +------+ + | Care Sales And Marketing Executive Name | Role | Phone | [...] + + | 09/03/ | Telephone | [facility] | Simon, | Lab Results | | 2019 | | NEPHROLOGY [place] | [facility] | | | | | [address] | Game Programer | | | | | [address] [place] | | | | | | [address] | | | | | | [phone] | | | +--------+ + + + [...] Miscellaneous Notes Telephone Encounter - Trinidad Simon, Ton Container Filler - 09/03/2019 12:57 PM PDTSpoke to patient in regards to lab results. She verbalized understanding, I did not have the [facility] copy of the labs but I had them pulled up on [facility]. She insisted on knowing the results and [...] this time.Electr onically signed by Trinidad Simon Ton Container Filler at 09/03/2019 4:26 PM PDTTelephone Encounter - [...] be nice. Please call them back at [phone]. Detailed message may be left on phone: Yes Next OV: 10/04/19 If this is a symptom based call and you were unable to immediately transfer the call to [facility] staff, was caller made aware that if at any timehefeels it is an emergency they should call 911 or go to the nearest emergency room? Yes Is home fire alarm installer needed: no do cumented in this encounter [...] | | | | | | [place] [address] | | | | | | [phone] | | | | | | | [...] [place] | | | | | | [address] | | | | | | | | +--------+ + + + + | 10/30/ | Virtual | Nephrology | Farrukh Acuna MD | | | 2019 | Office | | [address] | | | | Visit | | [address] [place] | | | | | | [address] | | | | | | | | +--------+ + + + + documented as of this encounter Visit Diagnoses Not on filedocumented in this encounter"
--- OUTSIDE RECORDS SUMMARY | ~2020-09-15 | XMS | Encounter Summary ---
Demographics + + + | Address | [address] | | | [place] [address] | + + + | Home Phone [...] Team Providers + +------+ + | Care River Rat Name | Role | Phone | + [...] | Transaction, | | | | | [place], [place] | Provider Unknown | | | | | [address] | [phone] | | | | | [phone] | | | +--------+ + + + [...] | | | | | | [place] [address] | | | | | | [phone] | | | | | | | [...] [place] | | | | | | [address] | | | | | | | | +--------+ + + + + | 10/30/ | Virtual | Nephrology | Farrukh Acuna MD | | | 2019 | Office | | [address] | | | | Visit | | [address] [place] | | | | | | [address] | | | | | | | [...]
--- OUTSIDE RECORDS SUMMARY | ~2020-09-15 | XMS | Encounter Summary ---
Demographics + + + | Address | [address] | | | [place] [address] | + + + | Home Phone [...] Team Providers + +------+ + | Care Oak Tanner Name | Role | Phone | + [...] | | [address] | [place] [address] | | | | | [place] [address] | | | | | | [phone] | | | +--------+ + + + [...] [place], | | | | | | [place] [address] | | | | | | [phone] | | | | | | | [...] [place] | | | | | | [address] | | | | | | | | +--------+ + + + + | 10/30/ | Virtual | Nephrology | Farrukh Acuna MD | | | 2019 | Office | | [address] | | | | Visit | | [address] [place] | | | | | | [id number] | | | | | | | [...]
--- OUTSIDE RECORDS SUMMARY | ~2020-09-15 | XMS | Encounter Summary ---
Demographics + + + | Address | [address] | | | [place] [address] | + + + | Home Phone [...] Team Providers + +------+ + | Care Poultry Pinner Name | Role | Phone | + +------+ + | Mehrdad eBrgman | PCP | | + +------+ + [...] | [address] | [place] [address] | | | | | [place] [address] | | | | | | [phone] | | | +--------+ + + + [...] | | | | | | [place] [address] | | | | | | [phone] | | | | | | | [...] [place] | | | | | | [address] | | | | | | | | +--------+ + + + + | 10/30/ | Virtual | Nephrology | Farrukh Acuna MD | | | 2019 | Office | | [address] | | | | Visit | | [address] [place] | | | | | | [address] | | | | | | | [...]
--- OUTSIDE RECORDS SUMMARY | ~2020-09-15 | XMS | Encounter Summary ---
Demographics + + + | Address | [address] | | | [place] [address] | + + + | Home Phone [...] [place] | | | | | [address] | | + + + + + Care Team Providers + +------+ + | Care Hosiery Bagger Name | Role | Phone | + [...] [id number] | | | | | | [place], [place] | | | | | | [address] | | | | | | [phone] | | | +--------+ + + + [...] | + + + + + | [facility] | [address] | [place] [address] | | | PATHOLOGY | [address] | | | + + + + + SURGICAL PATHOLOGY (12/28/1996) + + + + + + | Component | Value | Ref Range | Performed | Pathologist | | | | | At | Signature | + + + + + + | SURGICAL | SOURCE OF SPECIMEN: SEE | | [facility] | | | PATHOLOGY | RESULTS | [...] | | | | | | Hortensia Sotleo M.D.Also | | | | | | [...] | + + + + + | [facility] | [address] | [place] [address] | | | PATHOLOGY | [address] | | | + + + + + documented in this encounter Visit Diagnoses Not on filedocumented in this encounter"
--- OUTSIDE RECORDS SUMMARY | ~2020-09-15 | XMS | Encounter Summary ---
Demographics + + + | Address | [address] | | | [place] [address] | + + + | Home Phone [...] Team Providers + +------+ + | Care Heel Nailing Machine Operator Name | Role | Phone [...] | [address] | [place] [address] | | | | | [place] [address] | | | | | | [phone] | | | +--------+ + + + [...] | | | | | | [place] [address] | | | | | | [phone] | | | | | | | [...] [place] | | | | | | [address] | | | | | | | | +--------+ + + + + | 10/30/ | Virtual | Nephrology | Farrukh Acuna MD | | | 2019 | Office | | [address] | | | | Visit | | [address] [place] | | | | | | [address] | | | | | | | [...]
--- OUTSIDE RECORDS SUMMARY | ~2020-09-15 | XMS | Encounter Summary ---
Demographics + + + | Address | [address] | | | [place] [address] | + + + | Home Phone [...] Team Providers + +------+ + | Care Agronomy Instructor Name | Role | Phone | [...] [address] | | | | | [place], [place] | [place], [place] | | | | | [address] | [address] | | | | | [phone] | [phone] | | | | | | | [...] | | | | | | [place] [address] | | | | | | [phone] | | | | | | | [...] [place] | | | | | | [address] | | | | | | | | +--------+ + + + + | 10/30/ | Virtual | Nephrology | Farrukh Acuna MD | | | 2019 | Office | | [address] | | | | Visit | | [address] [place] | | | | | | [address] | | | | | | | [...]
--- OUTSIDE RECORDS SUMMARY | ~2020-09-15 | XMS | Encounter Summary ---
Demographics + + + | Address | [address] | | | [place] [address] | + + + | Home Phone [...] Team Providers + +------+ + | Care Flat Folder Name | Role | Phone | + [...] E | | | | | | ([facility]) | [place], [place] | | | | | | Procedures | [address] | | | | | | VAS Arm | Phone: | | | | | | Bilateral | [phone] | | | | | | Mapping For | Fax: | | | | | | Dialysis | [phone] | | +--------+--------+ + + + + [...] + + | 07/30/ | Telephone | [facility] | Trisha Conner DNP | Referral Consult | | 2019 | | CARDIOTHORACIC | [address] | | | | | SURGERY [address] | [address] [place], [place] | | | | | [address] | [address] | | | | | [place], [place] | | | | | | [address] | | | | | | [phone] | | | +--------+ + + + [...] would like imaging to be done at [facility] documented in this encounter Plan [...] | | | | | | [place] [address] | | | | | | [phone] | | | | | | | [...] CUEVAS | | | | | | [id number] | | | | | | | | +--------+ + + + + | 10/30/ | Virtual | Nephrology | Farrukh Acuna MD | | | 2019 | Office | | [address] | | | | Visit | | [address] [place], [place] | | | | | | [address] | | | | | | | [...] Note | + + | Meir Jama Results In 08/20/2019 4:27 PM PDT | [...]
--- OUTSIDE RECORDS SUMMARY | ~2020-09-15 | XMS | Encounter Summary ---
Demographics + + + | Address | [address] | | | [place] [address] | + + + | Home Phone [...] Providers + +------+ + | Care Flight Communications Specialist Name | Role | Phone | + +------+ + | Rahul Silva MD | PCP | | + +------+ + Encounter Details +--------+ + + + + | Date | Type | Department | Care Team | Description | +--------+ + + + + | 05/27/ | Orders Only | [facility] | Conversion | | | 2018 | | [place] | Transaction, | | | | | [address] | Provider Unknown | | | | | [address] [place], [place] | [phone] | | | | | [address] | (Fax) | | | | | [phone] | | | +--------+ + + + [...] | | | | | | [place] [address] | | | | | | [phone] | | | | | | | [...] [place] | | | | | | [address] | | | | | | | | +--------+ + + + + | 10/30/ | Virtual | Nephrology | Farrukh Acuna MD | | | 2019 | Office | | [address] | | | | Visit | | [address] [place] | | | | | | [address] | | | | | | | [...]
--- OUTSIDE RECORDS SUMMARY | ~2020-09-15 | XMS | Encounter Summary ---
Demographics + + + | Address | [address] | | | [place] [address] | + + + | Home Phone [...] Team Providers + +------+ + | Care Lace Cutter Name | Role | Phone | [...] | | | [address] | [place] [address] | | | | | [place] [address] | | | | | | [phone] | | | +--------+ + + + [...] | | | | | | [place] [address] | | | | | | [phone] | | | | | | | [...] [place] | | | | | | [id number] | | | | | | | | +--------+ + + + + | 10/30/ | Virtual | Nephrology | Farrukh Acuna MD | | | 2019 | Office | | [address] | | | | Visit | | [address] [place], [place] | | | | | | [address] | | | | | | | [...]
--- OUTSIDE RECORDS SUMMARY | ~2020-09-15 | XMS | Encounter Summary ---
Demographics + + + | Address | [address] | | | [place] [address] | + + + | Home Phone [...] Providers + +------+ + | Care Supervisor Yard Name | Role | Phone | + [...] | | | [address] | [place] [address] | | | | | [place] [address] | | | | | | [phone] | | | +--------+ + + + [...] | | | | | | [place] [address] | | | | | | [phone] | | | | | | | [...] [place] | | | | | | [id number] | | | | | | | | +--------+ + + + + | 10/30/ | Virtual | Nephrology | Farrukh Acuna MD | | | 2019 | Office | | [address] | | | | Visit | | [address] [place], [place] | | | | | | [address] | | | | | | | | +--------+ + + + + documented as of this encounter Procedures + +--------+ + + + | Procedure Name | Priori | Date/Time | Associated Diagnosis | Comments | | | ty | | | | + +--------+ + + + | XR CHEST 2 VIEWS | Routin | 08/06/2014 | | Results for this | | | e | 12:00 AM | | procedure are in the | | | | PDT | | results section. | + +--------+ + + + documented in this encounter Results XR Chest 2 Vws (08/06/2014 12:00 AM PDT) + + | Specimen [...]
--- OUTSIDE RECORDS SUMMARY | ~2020-09-15 | XMS | Encounter Summary ---
Demographics + + + | Address | [address] | | | [place] [address] | + + + | Home Phone [...] Team Providers + +------+ + | Care Touch Up Painter Name | Role | Phone | [...] + + | 08/25/ | Telephone | [facility] | Farrukh Acuna MD | Other (Patient | | 2019 | | NEPHROLOGY [place] | [address] | hospitalized) | | | | [address] | [address] [place], [place] | | | | | [address] [place], [place] | [address] | | | | | [address] | | | | | | [phone] | | | +--------+ + + + [...] Miscellaneous Notes Telephone Encounter - Trinidad Simon Drying Machine Receiver - 08/25/2020 3:53 PM PDTCalle d provider [...] d who was admitted last night at [facility]. I advised that was out of the office. She still as ked that message be sent. Please call them back at [phone]. Detailed message may be left on phone: Yes do cumented in this encounter Plan of Treatment +--------+ + + + + | Date | Type | Specialty | Care Team | Description | +--------+ + + + + | 09/19/ | Office | Cardiology | BlasMarch, | | | 2019 | Visit | | PRODUCT HANDLER [address] | | | | | | [address] [place], | | | | | | [place] [address] | | | | | | [phone] | | | | | | | [...] [place] | | | | | | [address] | | | | | | | [...]
--- OUTSIDE RECORDS SUMMARY | ~2020-09-15 | XMS | Encounter Summary ---
Demographics + + + | Address | [address] | | | [place] [address] | + + + | Home Phone [...] Team Providers + +------+ + | Care Expanded Function Dental Assistant Name | Role | Phone [...] + + | 09/24/ | Telephone | [facility] | Farrukh Acuna MD | Lab Results | | 2019 | | NEPHROLOGY [place] | [address] | | | | | [address] | [address] [place], [place] | | | | | [address] [place] | [address] | | | | | [address] | | | | | | [phone] | | | +--------+ + + + [...] Miscellaneous Notes Telephone Encounter - Trinidad Simon, Rate And Cost Analyst - 09/24/2019 2:49 PM PDTDr. Shannan bloom reviewed labs and stated that the patient labs show that he is stable. Called [place] and informed her of this. She verbalized understanding and had no further que stions at this time.Electronically signed by Trinidad Simon, Rate And Cost Analyst at 2018 3:22 PM PDTTelephone Encounter - Trinidad Simon, Rate And Cost Analyst - 09/24/2019 2:46 PM PDTPatients daughter called [...] | | 2019 | Visit | | CRAB BACKER [address] | | | | | | [address] [place], | | | | | | [place] [address] | | | | | | [phone] | | | | | | | [...] [place] | | | | | | [address] | | | | | | | | +--------+ + + + + | 10/30/ | Virtual | Nephrology | Farrukh Acuna MD | | | 2019 | Office | | [address] | | | | Visit | | [address] [place] | | | | | | [address] | | | | | | | | +--------+ + + + + documented as of this encounter Visit Diagnoses Not on filedocumented in this encounter"
--- OUTSIDE RECORDS SUMMARY | ~2020-09-15 | XMS | Encounter Summary ---
Demographics + + + | Address | [address] | | | [place] [address] | + + + | Home Phone [...] Team Providers + +------+ + | Care Ed Case Manager Name | Role | Phone | [...] [address] | | | | | [place], [place] | [place] [address] | | | | | [address] | [phone] | | | | | [phone] | | | +--------+ + + + [...] | | | | | | [place] [address] | | | | | | [phone] | | | | | | | [...] [place] | | | | | | [id number] | | | | | | | | +--------+ + + + + | 10/30/ | Virtual | Nephrology | Farrukh Acuna MD | | | 2019 | Office | | [address] | | | | Visit | | [address] [place], [place] | | | | | | [address] | | | | | | | [...] pressures of 5-10mmHg. MEASUREMENTS | | | Carpet Technician: DH Authenticated by: VICTORIANO BIRMINGHAM MD Report | | | Date/Time: 03-27-2016 13:39:46 | | + + + + + | Procedure Note | + + | Meir Jama Conversion - 07/22/2019 7:56 PM PDT Patient Name: Demetra Andujar of | | : 1940 Performing Physician: VICTORIANO BIRMINGHAM | | INDICATIONS H | | NAHED ANDERSON CONCLUSIONS 1. This was a technically difficult [...] venous pressures of 5-10mmHg. | | MEASUREMENTS Carpet Technician: BAIRONuthenticated by: VICTORIANO Ho | | Date/Time: 03-27-2016 13:39:46 IMPRESSION: [...] | |MEASUREMENTS | | | | | |Carpet Technician: | |Authenticated by: VICTORIANO BIRMINGHAM MD | [...]
--- OUTSIDE RECORDS SUMMARY | ~2020-09-15 | XMS | Encounter Summary ---
Demographics + + + | Address | [address] | | | [place] [address] | + + + | Home Phone [...] Team Providers + +------+ + | Care Parlor Maid Name | Role | Phone | + +------+ + | Mehrdad Bergman | PCP | | + +------+ + Encounter Details +--------+ + + + + | Date | Type | Department | Care Team | Description | +--------+ + + + + | 10/01/ | Telephone | [facility] | Farrukh Acuna MD | | | 2019 | | NEPHROLOGY [place] | [address] | | | | | [address] | [address] [place], [place] | | | | | [place] | [address] | | | | | [address] | | | | | | [phone] | | | +--------+ + + + [...] by Friday. Please call them back at [phone] . Detailed message may be left on phone: Yes Last OV: Next OV: 10/04/19 documented in this enc ounter Plan of Treatment +--------+ + + + + | Date | Type | Specialty | Care Team | Description | +--------+ + + + + | 09/19/ | Office | Cardiology | BlasMarch, | | | 2019 | Visit | | SNUFF GRINDER [address] | | | | | | [address] [place], | | | | | | [place] [address] | | | | | | [phone] | | | | | | | [...] [place] | | | | | | [address] | | | | | | | [...]
--- OUTSIDE RECORDS SUMMARY | ~2020-09-15 | XMS | Encounter Summary ---
Demographics + + + | Address | [address] | | | [place] [address] | + + + | Home Phone | | + + + | Preferred Language | Unknown | + + + | Marital Status | Single | + + + | Cheondoism Affiliation | PRO | + + + [...] [place] | | | | | [address] | | + + + + + Care Team Providers + +------+ + | Care Grocery Store Manager Name | Role | Phone | + +------+ + PCP | Unavailable | + +------+ + Encounter Details +--------+ + + + + | Date | Type | Department | Care Team | Description | +--------+ + + + + | 04/06/ | Procedure - | [facility] | Record, Operation | Operative Report | | 1997 | | Center at [facility] [address] | | | | | Transcribed | [facility] | | | | | | for Health and | | | | | | Healing, [address] | | | | | | [place], [place] | | | | | | [address] | | | | | | [phone] | | | +--------+ + + + [...] 04/06/1998 12:00 AM PDTAssociated Order(s): OPERATION RECORD [place] [address], [place] [address] [facility] OPERATION RECORD Med Rec No.: [id number] Date: 04/06/98 Name: Kavon Andujar ATTENDING SURGEON: Galo Arora M.D. Metal Wire Technician, Division of Plastic & Reconstructive fire investigation manager(S): Barry Fofana M.D. Resident, Plastic Surgery PREOPERATIVE [...] needle counts were correct. Galo Arora M.D. Metal Wire Technician, Division of Plastic & Reconstructive Surgery WOJCIECH/pita [...] + + | 04/06/1998 12:00 AM PDT [place] | | [facility] | | [address] [place] [address] | | [facility] | | | | OPERATION RECORD | | | | Med Rec No.: [id number] Date: 04/06/98 | | | | Name: Andujar, Kavon Morris | | | | | | ATTENDING SURGEON: | | Galo Arora M.D. | | Metal Wire Technician, | | Division of Plastic & | | Reconstructive Surgery | | BI SPECIALIST(S): | | Barry Fofana M.D. | | [...] | | Galo Arora M.D. | | Metal Wire Technician, | | Division of Plastic & | | Reconstructive Surgery | | WOJCIECH/pita | | | | P | | C: 05/12/98 lv | | cc: | | | + + documented in this encounter Visit Diagnoses Not on filedocumented in this encounter"
--- OUTSIDE RECORDS SUMMARY | ~2020-09-15 | XMS | Encounter Summary ---
Demographics + + + | Address | [address] | | | [place] [address] | + + + | Home Phone [...] Team Providers + +------+ + | Care Correctional Supervisor Name | Role | Phone | + +------+ + | Rahul Silva MD | PCP | | + +------+ + Encounter Details +--------+ + + + + | Date | Type | Department | Care Team | Description | +--------+ + + + + | 07/17/ | Orders Only | [facility] | Conversion | | | 2016 | | NEPHROLOGY [place] | Transaction, | | | | | [address] | Provider Unknown | | | | | [address] [place] | | | | | | [address] | (Fax) | | | | | [phone] | | | +--------+ + + + [...] | | | | | | [place] [address] | | | | | | [phone] | | | | | | | [...] [place] | | | | | | [address] | | | | | | | | +--------+ + + + + | 10/30/ | Virtual | Nephrology | Farrukh Acuna MD | | | 2019 | Office | | [address] | | | | Visit | | [address] [place] | | | | | | [address] | | | | | | | [...]
--- OUTSIDE RECORDS SUMMARY | ~2020-09-15 | XMS | Encounter Summary ---
Demographics + + + | Address | [address] | | | [place] [address] | + + + | Home Phone [...] Team Providers + +------+ + | Care Other Sports Official Name | Role | Phone | + [...] Venkata Carroll | | | 2019 | [facility] | [address] | | | | | OPERATING ROOM [address] | | | | | [address] | [place] [address] | | | | | [place], [place] | [phone] | | | | | [address] | | | | | | [phone] | | | +--------+ + + + + Anesthesia Record + + + + + | Procedure Name | Responsible | Anesthesia Start | Anesthesia Stop Time | | | Anesthesiologist | Time | | + + + + + | INSERTION AV FISTULA | Venkata Carroll, | 09/10/19 1307 | 09/10/19 1401 | | (Right BBF) (Right | FINISHING ROOM SUPERVISOR | | | | Arm Upper) | [...] | | +--------+ + + + | Fistul | 09/08/19; 0526; Y; (R AV | 09/08/19 0526 by | 08/25/20 0737 by | | a | fistula); Right; upper, anterior; | Mikey Caal RN | Jalen Saleh RN | | | arm; 08/25/20; 0737 | | | +--------+ + + + | Periph | 09/10/19; 1227; Left; Forearm; | 09/10/19 1227 by | 09/10/19 1600 by | | eral | [id number] catheter system; | Trinidad Ramírez | Leana Pimentel, | | IV | 20 gauge; catheter/device intact; | BAN Pina | RN | | | gauze and coban applied; | | | | | expected removal post discharge; | | | | | 09/10/19; 1600 | | | +--------+ + + + | Wound | 09/10/19; 1403; Incision; Right; | 09/10/19 1403 by | 08/26/20 1641 by | | | arm; Healed; 08/26/20; 1641 | Sari Liang | Jalen Saleh RN | | | | BAN Renee | | +--------+ + + + documented [...] encounter [place] Notes Anesthesia Postprocedure Evaluation - Venktaa Carroll CRNA - 09/10/2019 2:10 PM PDTFor matting of this note might be different from the original. ANESTHESIA POSTANESTHESIA EVALUATION Kavon Andujar 79 y.o. male 1940 [id number] Procedure(s) INSERTION AV FISTULA (Right BBF) (Right [...] signed by Venkata Carroll CRNA 09/10/2019 14:10 [facility] Venkata Carroll CRNA at 09/10 2:10 PM PDTAnesthesia Preprocedure Evaluation - Venkata Carroll CRNA - 09/10/2019 12:41 PM PDT ANESTHESIA PREANESTHESIA EVALUATION Kavon Andujar 79 y.o. male 1940 [id number] Procedure(s): INSERTION AV FISTULA (Right BBF) (Right [...] . Electronically Signed by: Venkata Carroll CRNA ESig date/time: 09/10/2019 12:41 documented in th is encounter Miscellaneous Notes Anesthesia Post-op Handoff - Venkata Carroll CRNA - 09/10/2019 2:08 PM PDTFormatting o f this note might be different from the original. ANESTHESIA HANDOFF NOTE Kavon Andujar 79 y.o. male 1940 [id number] INSERTION AV FISTULA (Right BBF) (Right Arm [...] receiving team. Venkata Carroll CRNA 09/10/2019 14:09 [facility] by Venkata Carroll CRNA at 09/10 2:10 PM PDTdocumented in this encounter Plan of Treatment +--------+ + + + + | Date | Type | Specialty | Care Team | Description | +--------+ + + + + | 10/20/ | Office | Cardiology | Odonnell, March, | | | 2019 | Visit | | ENGINEER RF DEPLOYMENT [address] | | | | | | [address] [place], | | | | | | [place] [address] | | | | | | [phone] | | | | | | | [...] [place] | | | | | | [address] | | | | | | | | +--------+ + + + + | 10/30/ | Virtual | Nephrology | Farrukh Acuna MD | | | 2019 | Office | | [address] | | | | Visit | | [address] [place] | | | | | | [address] | | | | | | | [...]
--- OUTSIDE RECORDS SUMMARY | ~2020-09-15 | XMS | Encounter Summary ---
Demographics + + + | Address | [address] | | | [place] [address] | + + + | Home Phone [...] Providers + +------+ + | Care Hot Mill Tin Roller Name | Role | Phone | + +------+ + | Rahul Silva MD | PCP | | + +------+ + Encounter Details +--------+ + + + + | Date | Type | Department | Care Team | Description | +--------+ + + + + | 05/27/ | Orders Only | [facility] | Conversion | | | 2019 | | NEPHROLOGY [place] | Transaction, | | | | | [address] | Provider Unknown | | | | | [address] [place] | | | | | | [address] | (Fax) | | | | | [phone] | | | +--------+ + + + [...] | | | | | | [place] [address] | | | | | | [phone] | | | | | | | [...] [place] | | | | | | [address] | | | | | | | | +--------+ + + + + | 10/30/ | Virtual | Nephrology | Farrukh Acuna MD | | | 2019 | Office | | [address] | | | | Visit | | [address] [place] | | | | | | [address] | | | | | | | [...]
--- OUTSIDE RECORDS SUMMARY | ~2020-09-15 | XMS | Encounter Summary ---
Demographics + + + | Address | [address] | | | [place] [address] | + + + | Home Phone [...] Team Providers + +------+ + | Care Infusion Rn Name | Role | Phone | + +------+ + | Rahul Silva MD | PCP | | + +------+ + Encounter Details +--------+---------+ + + + | Date | Type | Department | Care Team | Description | +--------+---------+ + + + | 01/10/ | Office | [facility] | Farrukh Acuna MD | CKD (chronic kidney | | 2020 | Visit | NEPHROLOGY [place] | [address] | disease) stage 5, | | | | [address] | [address] [place], [place] | GFR less than 15 | | | | [address] | [address] | ml/min (HCC) | | | | [place], [place] | | (Primary Dx); Anemia | | | | [address] | | of chronic kidney | | | | [phone] | | failure, stage 5 | | [...] 10/2016 with severe pneumonia, severe ZEKE; needed DYEING MACHINE TENDER for ~5 weeks b efore renal function recovery mid 12/2016. He was admitted to [facility] for 3 nights in July 2016 for [...] 10/2016 with severe pneumonia, severe ZEKE; needed DYEING MACHINE TENDER for ~5 weeks b efore renal function [...] Also: I see no need for acute DYEING MACHINE TENDER. I see no need to send him [...] concerns. Truly yours, Farrukh Acuna MD FACP, FAFARHAT documented in this enco unter Plan [...] | | | | | | [place] [address] | | | | | | [phone] | | | | | | | | +--------+ + + + + | 09/19/ | Clinical | Cardiology | | | | 2019 | Support | | | | +--------+ + + + + | 10/03/ | Office | Cardiology | Ron Orosco MD | | | 2019 | Visit | | [address] | | | | | | [place] | | | | | | [id number] | | | | | | | | +--------+ + + + + | 10/30/ | Virtual | Nephrology | Farrukh Acuna MD | | | 2019 | Office | | [address] | | | | Visit | | [address] [place], [place] | | | | | | [address] | | | | | | | [...] Anemia of chronic kidney failure, stage 5 ([facility]) | + + | Edema of lower [...]
--- OUTSIDE RECORDS SUMMARY | ~2020-09-15 | XMS | Encounter Summary ---
Demographics + + + | Address | [address] | | | [place] [address] | + + + | Home Phone [...] Providers + +------+ + | Care District Adviser Name | Role | Phone | [...] | | | | disease not | [place], | [place], [place] | | | | | on chronic | [place] [address] | [address] | | | | | dialysis | Phone: | Phone: | | | | | ([facility]) | [phone] | [phone] | | | | | Hypertension | Fax: | Fax: | | | | | , | [phone] | [phone] | | | | | unspecified | | | | | | | type | | | +--------+ + + + + + Encounter Details +--------+ + + + + | Date | Type | Department | Care Team | Description | +--------+ + + + + | 07/28/ | Orders Only | [facility] | Farrukh Acuna MD | Iron deficiency | | 2019 | | NEPHROLOGY [place] | [address] [place] | (Primary Dx); Anemia | | | | [address] | [address] [place], [place] | of chronic kidney | | | | [address] [place], [place] | [address] | failure, stage 5 | | | | [address] | | ([facility]); Stage 5 | | | | [phone] | | chronic kidney | | | | | | disease not on | | | | | | chronic dialysis | | | | | | ([facility]); Secondary | | | | | | hyperparathyroidism | | | | | | ([facility]); Hypertension, | | | | | | [...] | | | | | | [place] [address] | | | | | | [phone] | | | | | | | [...] [place] | | | | | | [address] | | | | | | | | +--------+ + + + + | 10/30/ | Virtual | Nephrology | Farrukh Acuna MD | | | 2019 | Office | | [address] | | | | Visit | | [address] [place] | | | | | | [address] | | | | | | | [...] chronic | Ordered: 07/28/2019 | | to [facility] | Referral | e | kidney [...]
--- OUTSIDE RECORDS SUMMARY | ~2020-09-15 | XMS | Encounter Summary ---
Demographics + + + | Address | [address] | | | [place] [address] | + + + | Home Phone [...] Providers + +------+ + | Care Disability Aide Name | Role | Phone | [...] [address] | | | | | [address] [place], [place] | [place], [place] | | | | | [address] | [address] | | | | | [phone] | [phone] | | | | | | | [...] | | | | | | [place] [address] | | | | | | [phone] | | | | | | | [...] [place] | | | | | | [address] | | | | | | | | +--------+ + + + + | 10/30/ | Virtual | Nephrology | Farrukh Acuna MD | | | 2019 | Office | | [address] | | | | Visit | | [address] [place] | | | | | | [address] | | | | | | | [...]
--- OUTSIDE RECORDS SUMMARY | ~2020-09-15 | XMS | Encounter Summary ---
Demographics + + + | Address | [address] | | | [place] [address] | + + + | Home Phone [...] Providers + +------+ + | Care Hand Folder Name | Role | Phone | + +------+ + | Rahul Silva MD | PCP | | + +------+ + Encounter Details +--------+ + + + + | Date | Type | Department | Care Team | Description | +--------+ + + + + | 08/19/ | Orders Only | [facility] | Farrukh Acuna MD | | | 2018 | | NEPHROLOGY [place] | [address] | | | | | [address] | [address] [place], [place] | | | | | [address] [place], [place] | [address] | | | | | [address] | | | | | | [phone] | | | +--------+ + + + [...] | | | | | | [place] [address] | | | | | | [phone] | | | | | | | [...] [place] | | | | | | [address] | | | | | | | | +--------+ + + + + | 10/30/ | Virtual | Nephrology | Farrukh Acuna MD | | | 2019 | Office | | [address] | | | | Visit | | [address] [place] | | | | | | [address] | | | | | | | [...]
--- OUTSIDE RECORDS SUMMARY | ~2020-09-15 | XMS | Encounter Summary ---
Demographics + + + | Address | [address] | | | [place] [address] | + + + | Home Phone [...] Team Providers + +------+ + | Care Stemming Machine Operator Name | Role | Phone | + +------+ + | Mehrdad Bergman | PCP | | + +------+ + Encounter Details +--------+ + + + + | Date | Type | Department | Care Team | Description | +--------+ + + + + | 06/05/ | Orders Only | [facility] | Ami Cole, | CKD (chronic kidney | | 2019 | | NEPHROLOGY [place] | Commercial Technician | disease) stage 5, | | | | [address] | | GFR less than 15 | | | | [address] | | ml/min ([facility]) | | | | [place], [place] | | (Primary Dx); Anemia | | | | [address] | | of chronic kidney | | | | [phone] | | failure, stage 5 | | | | | | ([facility]); Persistent | | | [...] as of this encounter Progress Ami Pérez, Commercial Technician - 06/05/2020 2:[address] [...] | | | | | | [place] [address] | | | | | | [phone] | | | | | | | [...] | | | Visit | | [address] [place], [place] | | | | | | [address] | | | | | | | [...] 15 ml/min ([facility]) | 06/05/2021 | | | | | Anemia of chronic | | | | | | kidney failure, | | | | | | stage 5 ([facility]) | | | [...] 15 ml/min ([facility]) | 06/05/2021 | | | | | Anemia of chronic | | | | | | kidney failure, | | | | | | stage 5 ([facility]) | | | [...] ml/min ([facility]) | | | | | | Anemia of chronic | | | | | | kidney failure, | | | | | | stage 5 ([facility]) | | | [...] ml/min ([facility]) | | | | | | Anemia of chronic | | | | | | kidney failure, | | | | | | stage 5 ([facility]) | | | [...] ml/min ([facility]) | | | | | | Anemia of chronic | | | | | | kidney failure, | | | | | | stage 5 ([facility]) | | | [...] ml/min ([facility]) | | | | | | Anemia of chronic | | | | | | kidney failure, | | | | | | stage 5 ([facility]) | | | [...] ml/min ([facility]) | | | | | | Anemia of chronic | | | | | | kidney failure, | | | | | | stage 5 ([facility]) | | | [...] ml/min ([facility]) | | | | | | Anemia of chronic | | | | | | kidney failure, | | | | | | stage 5 ([facility]) | | | [...] Anemia of chronic kidney failure, stage 5 ([facility]) | + + | Persistent proteinuria Proteinuria | + + | Essential hypertension Unspecified essential hypertension | + + | Iron deficiency Other disorders of iron metabolism | + + documented in this encounter"
--- OUTSIDE RECORDS SUMMARY | ~2020-09-15 | XMS | Encounter Summary ---
Demographics + + + | Address | [address] | | | [place] [address] | + + + | Home Phone [...] [facility] | | | [...] Providers + +------+ + | Care Transportation Attendant Name | Role | Phone | + +------+ + | Rahul Silva MD | PCP | | + +------+ + Encounter Details +--------+ + + + + | Date | Type | Department | Care Team | Description | +--------+ + + + + | 09/01/ | Orders Only | [facility] | Farrukh Acuna MD | | | 2013 | | NEPHROLOGY [place] | [address] | | | | | [address] | [address] [place], [place] | | | | | [address] [place] | [address] | | | | | [address] | | | | | | [phone] | | | +--------+ + + + [...] | | | | | | [place] [address] | | | | | | [phone] | | | | | | | [...] [place] | | | | | | [address] | | | | | | | | +--------+ + + + + | 10/30/ | Virtual | Nephrology | Farrukh Acuna MD | | | 2019 | Office | | [address] | | | | Visit | | [address] [place], [place] | | | | | | [address] | | | | | | | | +--------+ + + + + documented as of this encounter Procedures + +--------+ + + + | Procedure Name | Priori | Date/Time | Associated Diagnosis | Comments | | | ty | | | | + +--------+ + + + | EXTERNAL LAB: [facility] | Routin | 09/01/2014 | | Results [...] | | | LAB | | | Martiniquais | | | | | + + [...]
--- OUTSIDE RECORDS SUMMARY | ~2020-09-15 | XMS | Encounter Summary ---
Demographics + + + | Address | [address] | | | [place] [address] | + + + | Home Phone [...] Providers + +------+ + | Care Blade Bender Furnace Tender Name | Role | Phone | + +------+ + | Rahul Silva MD | PCP | | + +------+ + Encounter Details +--------+ + + + + | Date | Type | Department | Care Team | Description | +--------+ + + + + | 06/15/ | Orders Only | [facility] | Conversion | | | 2019 | | NEPHROLOGY [place] | Transaction, | | | | | [address] | Provider Unknown | | | | | [address] | | | | | | [address] | (Fax) | | | | | [phone] | | | +--------+ + + + [...] | | | | | | [place] [address] | | | | | | [phone] | | | | | | | [...] [place] | | | | | | [address] | | | | | | | | +--------+ + + + + | 10/30/ | Virtual | Nephrology | Farrukh Acuna MD | | | 2019 | Office | | [address] | | | | Visit | | [address] [place] | | | | | | [address] | | | | | | | [...]
--- OUTSIDE RECORDS SUMMARY | ~2020-09-15 | XMS | Encounter Summary ---
Demographics + + + | Address | [address] | | | [place] [address] | + + + | Home Phone [...] | | | [address] | [place] [address] | | | | | [place] [address] | | | | | | [phone] | | | +--------+ + + + [...] | | | | | | [place] [address] | | | | | | [phone] | | | | | | | [...] [place] | | | | | | [id number] | | | | | | | | +--------+ + + + + | 10/30/ | Virtual | Nephrology | Farrukh Acuna MD | | | 2019 | Office | | [address] | | | | Visit | | [address] [place], [place] | | | | | | [address] | | | | | | | [...]
--- OUTSIDE RECORDS SUMMARY | ~2020-09-15 | XMS | Encounter Summary ---
Demographics + + + | Address | [address] | | | [place] [address] | + + + | Home Phone [...] Team Providers + +------+ + | Care Psychiatric Orderly Name | Role | Phone | + +------+ + | Rahul Silva MD | PCP | | + +------+ + Encounter Details +--------+ + + + + | Date | Type | Department | Care Team | Description | +--------+ + + + + | 12/06/ | Orders Only | [facility] | Farrukh Acuna MD | Essential | | 2020 | | [facility]Y [facility] | [address] | hypertension | | | | [address] | [address] [place], [place] | (Primary Dx); CKD | | | | [address] [place], [place] | [address] | (chronic kidney | | | | [address] | | disease) stage 5, | | | | [phone] | | GFR less than 15 | | | | | | ml/min ([facility]); Anemia | | | | | | of chronic kidney | | | | | | failure, stage 5 | | | | | | ([facility]); | | | | | | Hypomagnesemia; [...] | | | | | | [place] [address] | | | | | | [phone] | | | | | | | [...] | | | Visit | | [address] [place], [place] | | | | | | [address] | | | | | | | [...] | | | | | | ml/min ([facility]) | | | | | [...] | | | | | | ml/min ([facility]) | | | | | [...] | | | | | | ml/min ([facility]) | | | | | [...] | | | | | | ml/min ([facility]) | | | | | [...] | | | | | | ml/min ([facility]) | | | | | [...] | | | | | | ml/min ([facility]) Anemia | | | | | | of chronic kidney | | | | | | failure, stage 5 | | | | | | ([facility]) Persistent | | | | [...] | | | | | | ml/min ([facility]) Anemia | | | | | | of chronic kidney | | | | | | failure, stage 5 | | | | | | ([facility]) Persistent | | | | [...] | | | | | | ml/min ([facility]) | | | | | | Persistent | | | | | | proteinuria | | + +------+--------+ + + documented as of this encounter Visit Diagnoses + + | Diagnosis | + + | Essential hypertension - Primary Unspecified essential hypertension | + + | CKD (chronic kidney disease) stage 5, GFR less than 15 ml/min ([facility]) Chronic kidney | | disease, Stage V | + + | Anemia of chronic kidney failure, stage 5 ([facility]) | + + | Hypomagnesemia Disorders of magnesium metabolism | + + | Persistent proteinuria Proteinuria | + + documented in this encounter"
--- OUTSIDE RECORDS SUMMARY | ~2020-09-15 | XMS | Encounter Summary ---
Demographics + + + | Address | [address] | | | [place] [address] | + + + | Home Phone [...] Providers + +------+ + | Care Track Manager Name | Role | Phone | + +------+ + | Rahul Silva MD | PCP | | + +------+ + Encounter Details +--------+ + + + + | Date | Type | Department | Care Team | Description | +--------+ + + + + | 01/13/ | Orders Only | [facility] | Conversion | | | 2016 | | NEPHROLOGY [place] | Transaction, | | | | | [address] | Provider Unknown | | | | | [address] | | | | | | [address] | (Fax) | | | | | [phone] | | | +--------+ + + + [...] | | | | | | [place] [address] | | | | | | [phone] | | | | | | | | +--------+ + + + + | 09/19/ | Clinical | Cardiology | | | | 2019 | Support | | | | +--------+ + + + + | 10/03/ | Office | Cardiology | Ron Orosco MD | | | 2019 | Visit | | [address] | | | | | | [place] | | | | | | [address] | | | | | | | | +--------+ + + + + | 10/30/ | Virtual | Nephrology | Farrukh Acuna MD | | | 2019 | Office | | [address] | | | | Visit | | [address] [place] | | | | | | [address] | | | | | | | [...] | | | LAB | | | Greek | | | | | + + [...]
--- OUTSIDE RECORDS SUMMARY | ~2020-09-15 | XMS | Encounter Summary ---
Demographics + + + | Address | [address] | | | [place] [address] | + + + | Home Phone [...] Team Providers + +------+ + | Care Soap Mixer Name | Role | Phone | + +------+ + | Rahul Silva MD | PCP | | + +------+ + Encounter Details +--------+ + + + + | Date | Type | Department | Care Team | Description | +--------+ + + + + | 09/07/ | Orders Only | [facility] | Farrukh Acuna MD | | | 2018 | | NEPRHOLOGY [place] | [address] | | | | | [address] | [address] [place], [place] | | | | | [address] [place], [place] | [address] | | | | | [address] | | | | | | [phone] | | | +--------+ + + + [...] | | | | | | [place] [address] | | | | | | [phone] | | | | | | | [...] [place] | | | | | | [address] | | | | | | | | +--------+ + + + + | 10/30/ | Virtual | Nephrology | Farrukh Acuna MD | | | 2019 | Office | | [address] | | | | Visit | | [address] [place] | | | | | | [address] | | | | | | | [...]
--- OUTSIDE RECORDS SUMMARY | ~2020-09-15 | XMS | Encounter Summary ---
Demographics + + + | Address | [address] | | | [place] [address] | + + + | Home Phone [...] Team Providers + +------+ + | Care Injection Mold Technician Name | Role | Phone | [...] + + | 01/10/ | Documentati | [facility] | Simon, | Results (01/07/20) | | 2020 | on | NEPHROLOGY [place] | [facility] | | | | | [address] | Respiratory Coordinator | | | | | [address] [place], [place] | | | | | | [address] | | | | | | [phone] | | | +--------+ + + + [...] | | | | | | [place] [address] | | | | | | [phone] | | | | | | | [...] [place] | | | | | | [id number] | | | | | | | | +--------+ + + + + | 10/30/ | Virtual | Nephrology | Farrukh Acuna MD | | | 2019 | Office | | [address] | | | | Visit | | [address] [place], [place] | | | | | | [address] | | | | | | | [...]
--- OUTSIDE RECORDS SUMMARY | ~2020-09-15 | XMS | Encounter Summary ---
Demographics + + + | Address | [address] | | | [place] [address] | + + + | Home Phone [...] + +------+ + | Care Test Desk Trouble Locator Name | Role | Phone | + [...] | | | [address] | [place] [address] | | | | | [place] [address] | | | | | | [phone] | | | +--------+ + + + [...] | | | | | | [place] [address] | | | | | | [phone] | | | | | | | [...] [place] | | | | | | [id number] | | | | | | | | +--------+ + + + + | 10/30/ | Virtual | Nephrology | Farrukh Acuna MD | | | 2019 | Office | | [address] | | | | Visit | | [address] [place], [place] | | | | | | [address] | | | | | | | [...]
--- OUTSIDE RECORDS SUMMARY | ~2020-09-15 | XMS | Encounter Summary ---
Demographics + + + | Address | [address] | | | [place] [address] | + + + | Home Phone [...] Providers + +------+ + | Care President Practicing Urologist Name | Role | Phone | + +------+ + | Rahul Silva MD | PCP | | + +------+ + Encounter Details +--------+ + + + + | Date | Type | Department | Care Team | Description | +--------+ + + + + | 06/12/ | Orders Only | [facility] | Farrukh Acuna MD | | | 2017 | | NEPHROLOGY [place] | [address] | | | | | [address] | [address] [place], [place] | | | | | [address] [place] | [address] | | | | | [address] | | | | | | [phone] | | | +--------+ + + + [...] | | | | | | [place] [address] | | | | | | [phone] | | | | | | | [...] [place] | | | | | | [address] | | | | | | | | +--------+ + + + + | 10/30/ | Virtual | Nephrology | Farrukh Acuna MD | | | 2019 | Office | | [address] | | | | Visit | | [address] [place] | | | | | | [address] | | | | | | | [...]
--- OUTSIDE RECORDS SUMMARY | ~2020-09-15 | XMS | Encounter Summary ---
Demographics + + + | Address | [address] | | | [place] [address] | + + + | Home Phone [...] Team Providers + +------+ + | Care Boilermaker Loftsman Name | Role | Phone | + [...] | | | [address] | [place] [address] | | | | | [place] [address] | | | | | | [phone] | | | +--------+ + + + [...] | | | | | | [place] [address] | | | | | | [phone] | | | | | | | [...] [place] | | | | | | [id number] | | | | | | | | +--------+ + + + + | 10/30/ | Virtual | Nephrology | Farrukh Acuna MD | | | 2020 | Office | | [address] | | | | Visit | | [address] [place], [place] | | | | | | [address] | | | | | | | [...]
--- OUTSIDE RECORDS SUMMARY | ~2020-09-15 | XMS | Encounter Summary ---
Demographics + + + | Address | [address] | | | [place] [address] | + + + | Home Phone [...] Team Providers + +------+ + | Care Outside Parts Salesman Name | Role | Phone | + +------+ + | Rahul Silva MD | PCP | | + +------+ + Encounter Details +--------+ + + + + | Date | Type | Department | Care Team | Description | +--------+ + + + + | 01/11/ | Orders Only | [facility] | Farrukh Acuna MD | Essential | | 2020 | | NEPHROLOGY [place] | [address] | hypertension | | | | [address] | [address] [place], [place] | (Primary Dx); | | | | [address] [place], [place] | [address] | Persistent | | | | [address] | | proteinuria; Anemia | | | | [phone] | | of chronic kidney | | | | | | failure, stage 5 | | | | | | ([facility]); CKD (chronic | | | [...] | 09/19/ | Office | Cardiology | BlsaMarch, | | 2019 | Visit | | [address] | | | | | | [address], | | | | | | [place] [address] | | | | | | [phone] | | | | | | | [...] [place] | | | | | | [address] | | | | | | | | +--------+ + + + + | 10/30/ | Virtual | Nephrology | Farrukh Acuna MD | | | 2020 | Office | | [address] | | | | Visit | | [address] [place], [place] | | | | | | [address] | | | | | | | [...] 5 | | | | | | ([facility]) CKD (chronic | | | [...] 5 | | | | | | ([facility]) CKD (chronic | | | [...]
--- OUTSIDE RECORDS SUMMARY | ~2020-09-15 | XMS | Encounter Summary ---
Demographics + + + | Address | [address] | | | [place] [address] | + + + | Home Phone [...] Providers + +------+ + | Care Hand Frame Surgical Elastic Knitter Name | Role | Phone | + [...] + + | 09/23/ | Telephone | [facility] | Brian Orosco MD | Advice Only | | 2019 | | VASCULAR SURGERY | [address] | | | | | [address] | [place], [place] | | | | | [place], [place] | [address] | | | | | [address] | [phone] | | | | | [phone] | | | +--------+ + + + [...] transfer the call to a [place] sales coordinator was caller made aware that if [...] | | | | | | [place] [address] | | | | | | [phone] | | | | | | | [...] [place] | | | | | | [address] | | | | | | | | +--------+ + + + + | 10/30/ | Virtual | Nephrology | Farrukh Acuna MD | | | 2019 | Office | | [address] | | | | Visit | | [address] [place] | | | | | | [address] | | | | | | | | +--------+ + + + + documented as of this encounter Visit Diagnoses Not on filedocumented in this encounter
--- OUTSIDE RECORDS SUMMARY | ~2020-09-15 | XMS | Encounter Summary ---
Demographics + + + | Address | [address] | | | [place] [address] | + + + | Home Phone [...] + +------+ + | Care Continuous Improvement Coordinator Name | Role | Phone [...] + + | 08/18/ | Refill | [facility] | Sandy Capellan | Medication Refill | | 2019 | | NEPRHOLOGY PAIGE Valadez RN | | | | | [address] | | | | | | [address] [place] | | | | | | [address] | | | | | | [phone] | | | +--------+--------+ + + + [...] They manually faxed re quest to the [place] office now and fax has been received. Spoke with the pharmacy salesperson and provided updated location/fax numbers for our [facility], and [place] office. They had a file for Dr Acuna with 4 locations in [place], 2 locations in [place], [facility], [place], and [place]. They report they had faxed request to [...] | | | | | | [place] [address] | | | | | | [phone] | | | | | | | [...] [place] | | | | | | [address] | | | | | | | | +--------+ + + + + | 10/30/ | Virtual | Nephrology | Farrukh Acuna MD | | | 2019 | Office | | [address] | | | | Visit | | [address] [place] | | | | | | [phone] | | | | | | | [...]
--- OUTSIDE RECORDS SUMMARY | ~2020-09-15 | XMS | Encounter Summary ---
Demographics + + + | Address | [address] | | | [place] [address] | + + + | Home Phone [...] Providers + +------+ + | Care Application Support Lead Name | Role | Phone | [...] + + | 03/20/ | Telephone | [facility] | Sandy Capellan | Mary (Clarification | | 2020 | | NEPRHOLOGY PAIGE | BAN Valadez | on lab orders) | | | | [address] | | | | | | [address] | | | | | | [address] | | | | | | [phone] | | | +--------+ + + + [...] banks, called explaining that they went to [facility] today but were unable to do labs becaus e they were missing the urine order. Explained that per last OV note, Dr Acuna only wanted b lood work and no urine testing was needed. She stated understanding and they will go to [facility] tomorrow for non-fasting blood work. Re-faxed pre-appointment orders (RFP, PTH, ferrit in, iron/iron binding, mag, and CBC) to [facility] in [place] (F#[phone]). Fax confirm ation received. No further questions [...] | | | | | | [place] [address] | | | | | | [phone] | | | | | | | [...] [place] | | | | | | [address] | | | | | | | | +--------+ + + + + | 10/30/ | Virtual | Nephrology | Farrukh Acuna MD | | | 2019 | Office | | [address] | | | | Visit | | [address] [place] | | | | | | [address] | | | | | | | | +--------+ + + + + documented as of this encounter Visit Diagnoses Not on filedocumented in this encounter"
--- OUTSIDE RECORDS SUMMARY | ~2020-09-15 | XMS | Encounter Summary ---
Demographics + + + | Address | [address] | | | [place] [address] | + + + | Home Phone [...] Providers + +------+ + | Care Steel Division Supervisor Name | Role | Phone | + +------+ + | Rahul Silva MD | PCP | | + +------+ + Encounter Details +--------+ + + + + | Date | Type | Department | Care Team | Description | +--------+ + + + + | 10/28/ | Orders Only | [facility] | Conversion | | | 2016 | | NEPHROLOGY [place] | Transaction, | | | | | [address] | Provider Unknown | | | | | [address] | | | | | | [address] | (Fax) | | | | | [phone] | | | +--------+ + + + [...] | | | | | | [place] [address] | | | | | | [phone] | | | | | | | [...] [place] | | | | | | [address] | | | | | | | | +--------+ + + + + | 10/30/ | Virtual | Nephrology | Farrukh Acuna MD | | | 2019 | Office | | [address] | | | | Visit | | [address] [place] | | | | | | [address] | | | | | | | [...]
--- OUTSIDE RECORDS SUMMARY | ~2020-09-15 | XMS | Encounter Summary ---
Demographics + + + | Address | [address] | | | [place] [address] | + + + | Home Phone [...] | | | [address] | [place] [address] | | | | | [place] [address] | | | | | | [phone] | | | +--------+ + + + [...] | | | | | | [place] [address] | | | | | | [phone] | | | | | | | [...] [place] | | | | | | [address] | | | | | | | | +--------+ + + + + | 10/30/ | Virtual | Nephrology | Farrukh Acuna MD | | | 2019 | Office | | [address] | | | | Visit | | [address] [place] | | | | | | [phone] | | | | | | | [...]
--- OUTSIDE RECORDS SUMMARY | ~2020-09-15 | XMS | Encounter Summary ---
Demographics + + + | Address | [address] | | | [place] [address] | + + + | Home Phone [...] [place] | | | | | [address] | | + + + + + Care Team Providers + +------+ + | Care Capital Campaign Fundraiser Name | Role | Phone | + [...] [place] | | | | | | [address] | | | | | | [place], [place] | | | | | | [address] | | | | | | [phone] | | | +--------+ + + + [...] as of this encounter Progress Notes Interface, Logistics Research Engineer In - 01/22/2007 3:04 AM PST [facility] and [address] [address] or June 07, 1997 Pravin VALLES MD [address] [place] [facility] [address] RE:Kavon Andujar MR#:[id number] Valles: I [...] over the telephone. Sincerely, Michelle Landon M.D. Development Trainer, Neurology JINNY/ C: 06/13/97 cc: Alina Moise M.D. Division of Neurosurgery [facility] Robert Carlson M.D. Division of Vascular Surgery [facility] documented in this encounter Plan of Treatment Not on filedocumented as of this encounter Visit Diagnoses Not on filedocumented in this encounter
--- OUTSIDE RECORDS SUMMARY | ~2020-09-15 | XMS | Encounter Summary ---
Demographics + + + | Address | [address] | | | [place] [address] | + + + | Home Phone [...] Team Providers + +------+ + | Care Specification Writer Name | Role | Phone | [...] | [address] | [place] [address] | | | | | [place] [address] | | | | | | [phone] | | | +--------+ + + + [...] | | | | | | [place] [address] | | | | | | [phone] | | | | | | | [...] [place] | | | | | | [address] | | | | | | | | +--------+ + + + + | 10/30/ | Virtual | Nephrology | Farrukh Acuna MD | | | 2019 | Office | | [address] | | | | Visit | | [address] [place] | | | | | | [address] | | | | | | | [...]
--- OUTSIDE RECORDS SUMMARY | ~2020-09-15 | XMS | Encounter Summary ---
Demographics + + + | Address | [address] | | | [place] [address] | + + + | Home Phone [...] Providers + +------+ + | Care [employer] Name | Role | Phone | [...] + + | 03/29/ | Documentati | [facility] | Alfred, | Other (IV fercesilia | | 2020 | on | NEPHROLOGY [place] | Charlie Abdi | order sent to [facility] | | | | [address] | Industrial Technology Teacher | IVT confirmation | | | | [address] | | received) | | | | [place], [place] | | | | | | [address] | | | | | | [phone] | | | +--------+ + + + [...] | | | | | | [place] [address] | | | | | | [phone] | | | | | | | [...] [place] | | | | | | [address] | | | | | | | | +--------+ + + + + | 10/30/ | Virtual | Nephrology | Farrukh Acuna MD | | | 2019 | Office | | [address] | | | | Visit | | [address] | | | | | | [phone] | | | | | | | | +--------+ + + + + documented as of this encounter Visit Diagnoses Not on filedocumented in this encounter"
--- OUTSIDE RECORDS SUMMARY | ~2020-09-15 | XMS | Encounter Summary ---
Demographics + + + | Address | [address] | | | [place] [address] | + + + | Home Phone [...] [place] | | | | | [address] | | + + + + + Care Team Providers + +------+ + | Care Professor Of Industrial Technology Name | Role | Phone | + [...] [address] | | | | | | [place], [place] | | | | | | [address] | | | | | | [phone] | | | +--------+ + + + [...] as of this encounter Progress Notes Interface, Director Women In - 01/03/2007 5:08 AM PST CLINIC DATE: 12/22/97 Mr. Andujar is referred by Dr. Jerry Smiley in the [place]. He is currently followed by the Anesthesia Pain Service at [facility], and also recently has been followed [...] under Dr. Robert Carlson's supervision here at [facility]. His pain continued, exacerbated by a [...] procedure at this time. Eric Mcclure M.D. Tax Accounting Manager, Department of Orthopaedics and Rehabilitation AY/sara A cc: Jerry Smiley M.D. (with letter) [address] [facility] [address] [place] [address] Robert Carlson M.D. FAX: [phone] Alina Moise M.D. FAX: [phone] [facility] ClinicFAX: [phone] documented in this encounter Plan of Treatment Not on filedocumented as of this encounter Visit Diagnoses Not on filedocumented in this encounter
--- OUTSIDE RECORDS SUMMARY | ~2020-09-15 | XMS | Encounter Summary ---
Demographics + + + | Address | [address] | | | [place] [address] | + + + | Home Phone [...] Providers + +------+ + | Care Lace Burn Out Tender Name | Role | Phone | + +------+ + | Rahul Silva MD | PCP | | + +------+ + Encounter Details +--------+ + + + + | Date | Type | Department | Care Team | Description | +--------+ + + + + | 11// | Orders Only | [facility] | Farrukh Acuna MD | Essential | | 2019 | | NEPHROLOGY [place] | [address] | hypertension | | | | [address] | [address] [place], [place] | (Primary Dx); Iron | | | | [address] | [address] | deficiency; | | | | [place], [place] | | Secondary | | | | [address] | | hyperparathyroidism | | | | [phone] | | (HCC); CKD (chronic | | [...] | | 2019 | Visit | | MATHEMATICS DEPARTMENT CHAIR Jayde GOFFJuaquin | | | | | | [address], | | | | | | [place] [address] | | | | | | [phone] | | | | | | | [...] [place] | | | | | | [address] | | | | | | | | +--------+ + + + + | 10/30/ | Virtual | Nephrology | Farrukh Acuna MD | | | 2019 | Office | | [address] | | | | Visit | | [address] [place] | | | | | | [address] | | | | | | | [...] | | ml/min ([facility]) | | + +------+--------+ + + [...] | | ml/min ([facility]) | | + +------+--------+ + + [...] | | | | | ([facility]) CKD (chronic | | | | | | kidney disease) | | | | | | stage 5, GFR less | | | | | | than 15 ml/min ([facility]) | | + +------+--------+ + + [...]
--- OUTSIDE RECORDS SUMMARY | ~2020-09-15 | XMS | Encounter Summary ---
Demographics + + + | Address | [address] | | | [place] [address] | + + + | Home Phone [...] | [facility] | | | and [...] Team Providers + +------+ + | Care Founder & Ceo Name | Role | Phone | + [...] | [address] | [place] [address] | | | | | [place] [address] | | | | | | [phone] | | | +--------+ + + + [...] | | 2019 | Visit | | DREDGEMASTER [address] | | | | | | [address], | | | | | | [place] [address] | | | | | | [phone] | | | | | | | [...] [place] | | | | | | [address] | | | | | | | | +--------+ + + + + | 10/30/ | Virtual | Nephrology | Farrukh Acuna MD | | | 2019 | Office | | [address] | | | | Visit | | [address] [place] | | | | | | [address] | | | | | | | [...]
--- OUTSIDE RECORDS SUMMARY | ~2020-09-15 | XMS | Encounter Summary ---
Demographics + + + | Address | [address] | | | [place] [address] | + + + | Home Phone [...] Team Providers + +------+ + | Care Urology Nurse Name | Role | Phone | [...] (ear) | | | | [address] [facility] [address] | [address] [place] | | | | | [place] | [address] | | | | | [address] | | | | | | [phone] | | | +--------+ + + + [...] Miscellaneous Notes Telephone Encounter - Sarah Manzanares, Silica Dry Press Helper - 08/07/2016 3:14 PM PDTCalled a nd [...] dry elephone Breann jackson - Sarah Manzanares, Silica Dry Press Helper - 08/07/2016 11:03 AM PDTPatient daughter calls [...] | | 2019 | Visit | | TUNNEL WORKER [address] | | | | | | [address], | | | | | | [place] [address] | | | | | | [phone] | | | | | | | [...] [place] | | | | | | [address] | | | | | | | | +--------+ + + + + | 10/30/ | Virtual | Nephrology | Farrukh Acuna MD | | | 2019 | Office | | [address] | | | | Visit | | [address] [place] | | | | | | [address] | | | | | | | | +--------+ + + + + documented as of this encounter Visit Diagnoses Not on filedocumented in this encounter"
--- OUTSIDE RECORDS SUMMARY | ~2020-09-15 | XMS | Encounter Summary ---
Demographics + + + | Address | [address] | | | [place] [address] | + + + | Home Phone [...] Team Providers + +------+ + | Care R&D Engineer Name | Role | Phone | [...] [address] | | | | | [place], [place] | [place], [place] | | | | | [address] | [address] | | | | | [phone] | [phone] | | | | | | | [...] | | | | | | [place] [address] | | | | | | [phone] | | | | | | | [...] [place] | | | | | | [address] | | | | | | | | +--------+ + + + + | 10/30/ | Virtual | Nephrology | Farrukh Acuna MD | | | 2019 | Office | | [address] | | | | Visit | | [address] [place] | | | | | | [address] | | | | | | | [...]
--- OUTSIDE RECORDS SUMMARY | ~2020-09-15 | XMS | Encounter Summary ---
Demographics + + + | Address | [address] | | | [place] [address] | + + + | Home Phone [...] Team Providers + +------+ + | Care Ag Equipment Field Service Technician Name | Role | Phone | + +------+ + | Rahul Silva MD | PCP | | + +------+ + Encounter Details +--------+ + + + + | Date | Type | Department | Care Team | Description | +--------+ + + + + | 08/19/ | Orders Only | [facility] | Conversion | | | 2017 | | NEPHROLOGY CONNIE | Transaction, | | | | | [address] | Provider Unknown | | | | | [address] | | | | | | [address] | (Fax) | | | | | [phone] | | | +--------+ + + + [...] | | | | | | [place] [address] | | | | | | [phone] | | | | | | | [...] [place] | | | | | | [address] | | | | | | | | +--------+ + + + + | 10/30/ | Virtual | Nephrology | Farrukh Acuna MD | | | 2019 | Office | | [address] | | | | Visit | | [address] [place] | | | | | | [address] | | | | | | | [...] | | | LAB | | | Montenegrin | | | | | + + [...]
--- OUTSIDE RECORDS SUMMARY | ~2020-09-15 | XMS | Encounter Summary ---
Demographics + + + | Address | [address] | | | [place] [address] | + + + | Home Phone [...] + +------+ + | Care Pilot Plant Technician Name | Role | Phone | + +------+ + | Rahul Silva MD | PCP | | + +------+ + Encounter Details +--------+ + + + + | Date | Type | Department | Care Team | Description | +--------+ + + + + | 11/27/ | Orders Only | [facility] | Conversion | | | 2017 | | NEPHROLOGY CONNIE | Transaction, | | | | | [address] | Provider Unknown | | | | | [address] | | | | | | [address] | (Fax) | | | | | [phone] | | | +--------+ + + + [...] | | | | | | [place] [address] | | | | | | [phone] | | | | | | | [...] [place] | | | | | | [address] | | | | | | | | +--------+ + + + + | 10/30/ | Virtual | Nephrology | Farrukh Acuna MD | | | 2019 | Office | | [address] | | | | Visit | | [address] [place] | | | | | | [address] | | | | | | | [...] | | | LAB | | | Tunisian | | | | | + + [...]
--- OUTSIDE RECORDS SUMMARY | ~2020-09-15 | XMS | Encounter Summary ---
Demographics + + + | Address | [address] | | | [place] [address] | + + + | Home Phone [...] Team Providers + +------+ + | Care Drainage Design Coordinator Name | Role | Phone | [...] | | | [address] | [place] [address] | | | | | [place] [address] | | | | | | [phone] | | | +--------+ + + + [...] | | | | | | [place] [address] | | | | | | [phone] | | | | | | | [...] [place] | | | | | | [id number] | | | | | | | | +--------+ + + + + | 10/30/ | Virtual | Nephrology | Farrukh Acuna MD | | | 2019 | Office | | [address] | | | | Visit | | [address] [place], [place] | | | | | | [address] | | | | | | | [...]
--- OUTSIDE RECORDS SUMMARY | ~2020-09-15 | XMS | Encounter Summary ---
Demographics + + + | Address | [address] | | | [place] [address] | + + + | Home Phone [...] Providers + +------+ + | Care Cook Fish And Chips Name | Role | Phone | + +------+ + | Rahul Silva MD | PCP | | + +------+ + Encounter Details +--------+ + + + + | Date | Type | Department | Care Team | Description | +--------+ + + + + | 07/14/ | Orders Only | [facility] | Farrukh Acuna MD | | | 2018 | | NEPRHOLOGY STAPLES | [address] | | | | | [address] | [address] [place], [place] | | | | | [address] [place], [place] | [address] | | | | | [address] | | | | | | [phone] | | | +--------+ + + + [...] | | | | | | [place] [address] | | | | | | [phone] | | | | | | | [...] [place] | | | | | | [address] | | | | | | | | +--------+ + + + + | 10/30/ | Virtual | Nephrology | Farrukh Acuna MD | | | 2019 | Office | | [address] | | | | Visit | | [address] [place] | | | | | | [address] | | | | | | | [...]
--- OUTSIDE RECORDS SUMMARY | ~2020-09-15 | XMS | Encounter Summary ---
Demographics + + + | Address | [address] | | | [place] [address] | + + + | Home Phone [...] [place] | | | | | [address] | | + + + + + Care Team Providers + +------+ + | Care Flight Inspector Name | Role | Phone | [...] [place] | | | | | | [address] | | | | | | [place], [place] | | | | | | [address] | | | | | | [phone] | | | +--------+ + + + [...] as of this encounter Progress Notes Interface, Appliance Service Supervisor In - 02/17/2007 3:02 AM PDT [facility] and [place] [address] [place], [place] [address] or August 05, 1996 RUBIA VALLES MD [address] [place] [place] [address] RE:PORFIRIO ZAVALA MR#:[id number] Valles: Mr. Porfirio Zavala returned to the [facility] Neurosurgery Clinic today for a followup visit. 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 Mr. Zavala has failed numerous femoral nerve blocks, sciatic nerve blocks, and spinal cord blocks, and was at one time enrolled in the [facility] Pain Clinic. Mr. Zavala's pain [...] dictating for: Alina Moise M.D. Professor and Compounder, Division of Neurosurgery MARYANA/sajan cc: Seven Khan, Ph.D. Clinical Psychologist-Neuropsychologist documented in this encounter Plan of Treatment Not on filedocumented as of this encounter Visit Diagnoses Not on filedocumented in this encounter"
--- OUTSIDE RECORDS SUMMARY | ~2020-09-15 | XMS | Encounter Summary ---
Demographics + + + | Address | [address] | | | [place] [address] | + + + | Home Phone [...] Providers + +------+ + | Care Stock Transfer Clerk Name | Role | Phone | [...] + + | 12/30/ | Telephone | [facility] | Farrukh Acuna MD | Other (Medication | | 2019 | | [facility] | [address] | question.) | | | | [address] | [address] [place], [place] | | | | | [address] | [address] | | | | | [address] | | | | | | [phone] | | | +--------+ + + + [...] Miscellaneous Notes Telephone Encounter - Trinidad Simon, Stage Set Designer - 12/30/2019 4:35 PM PSTPatie nts daughter [...] time. Electronically sign ed by Trinidad Simon Stage Set Designer at 12/30/2019 4:40 PM PSTdocumented in this enc ounter Plan of Treatment +--------+ + + + + | Date | Type | Specialty | Care Team | Description | +--------+ + + + + | 09/19/ | Office | Cardiology | OdonnellMarch, | | 2019 | Visit | | PARA OPERATOR [address] | | | | | | [address], | | | | | | [place] [address] | | | | | | [phone] | | | | | | | [...] [place] | | | | | | [address] | | | | | | | | +--------+ + + + + | 10/30/ | Virtual | Nephrology | Farrukh Acuna MD | | | 2019 | Office | | [address] | | | | Visit | | [address] [place] | | | | | | [address] | | | | | | | | +--------+ + + + + documented as of this encounter Visit Diagnoses Not on filedocumented in this encounter"
--- OUTSIDE RECORDS SUMMARY | ~2020-09-15 | XMS | Encounter Summary ---
Demographics + + + | Address | [address] | | | [place] [address] | + + + | Home Phone [...] Providers + +------+ + | Care Child Adolescent Care Name | Role | Phone | [...] + + | 06/08/ | Telephone | [facility] | LaiElmira rodas | Other | | 2020 | | NEPRHOLOGY [place] | A, Medical | (Hospitalization ) | | | | [address] | Device Processing Engineer | | | | | [address] [place], [place] | | | | | | [address] | | | | | | [phone] | | | +--------+ + + + [...] Miscellaneous Notes Telephone Encounter - Elmira Hoyt, Supervisor Lead Burning - 06/08/2020 10:11 AM PDTPati ents daughter called to inform us that her father was taken by ambulance this morning to [facility]. He was suffering from confusion [...] | Cardiology | Blas March, | | 2019 | Visit | | [address] | | | | | | [address], | | | | | | [place] [address] | | | | | | [phone] | | | | | | | [...] [place] | | | | | | [address] | | | | | | | [...]
--- OUTSIDE RECORDS SUMMARY | ~2020-09-15 | XMS | Encounter Summary ---
Demographics + + + | Address | [address] | | | [place] [address] | + + + | Home Phone [...] Team Providers + +------+ + | Care Sack Cleaning Hand Name | Role | Phone | [...] | | ([facility]) | | | | | | [...] + + | 09/10/ | Hospital | [facility] | Brian Orosco MD | CKD (chronic kidney | | 2019 | Encounter | [facility] | [address] | disease) stage 5, | | | | OPERATING RO[address] | [place] | GFR less than 15 | | | | [address] | [address] | ml/min ([facility]) | | | | [place] | [phone] | | | | | [address] | | | | | | [phone] | | | +--------+ + + + [...] shunt, please contact your ph ysician at [phone]. Discharge instructions for Diagnostic Imaging sedation patients [...] Anexsia, Lorcet, Lorcet HD, Lorcet Plus, Lortab, Ashford, Verdrocet, Vicodin, Vi codin ES, Vicodin HP, [...] information carefully each time. Talk to your block captain regarding the use of this medicine in children. Special care may be needed. What side effects may I notice from receiving this medicine? Side effects that you should report to your doctor or health child care aide as soon as p ossible: allergic reactions [...] to your doctor or health child care aide if they continue or are bothersome): constipation [...] an official disposal site. Contact the [facility] at [phone] or your [facility] government to find a site. If [...] Tell your doctor or health child care aide if your pain does not go away, [...] cuts, scrapes, or blows. Date Last Reviewed: 12/01/201619995970-[address]49 [employer] [place] [address]. All righ ts reserved. This information is [...] | | | ([facility]), Secondary | | | | | | | hyperparathyroidism | | | | | | | ([facility]) | | | | | | [...] mg by mouth | | 0 | 07/19/20 | | | (ZOFRAN ODT) 8 mg [...] + + + +---------+ + + | XIOMARA 145 MCG | | | 1 | [...] and bl ood clots prevention. Prescription for Ashford given and side effects were explained. Patient states that he also takes oxycodone at home; patient and his family were educated about taki ng oxycodone or Ashford only and not both. OTC Tylenol intake precautions also discussed. Arabella ent and his family verbalized understanding and agreeable. Opportunity to ask questions give n, all questions were answered. Leana Pimentel RN documented in this encounter H&P Notes Brian Orosco MD - 09/10/2019 12:28 PM [facility] Service: Vascular Surgery Pre-Operative History & Physical Interval Update There have been no significant clinical changes since the completion of the above H&P. Abhijit mancilla's physical assessment showed Normal appearance, alert and oriented x 3 and respiratory eff ort normal Brian Orosco MD 09/10/2019 Elizabet, Brian Mancilla MD - 9 11:00 AM PDT Subjective [...] CV: No peripheral edema, rate regular SKIN: [place], warm, dry without rash/lesion MS: ROM [...] Yanes ([place]). Information dex rded by the usmanibe has been reviewed and validated by me. I agree with its contents. Signed by: Eden Painter 08/26/19, 10:49 Brian Orosco MD documented in this encount er Miscellaneous Notes Op Note - Brian Orosco MD - 09/10/2019 2:00 PM PDT [facility] Service: Vascular Surgery Operative Note Pre-operative Diagnosis: CKD and need for terminal gauger dialysis access Post-operative Diagnosis: same Procedure(s): Right brachiocephalic fistula creation Surgeon: Brian Orosco MD Cloud Operations Engineer(s): None Anesthesia: Monitor Anesthesia care and Local [...] | | 2019 | Visit | | SCOW DERRICK OPERATOR [address] | | | | | | [address], | | | | | | [place] [address] | | | | | | [phone] | | | | | | | [...] [place] | | | | | | [address] | | | | | | | | +--------+ + + + + | 10/30/ | Virtual | Nephrology | Farrukh Acuna MD | | | 2019 | Office | | [address] | | | | Visit | | [address] [place] | | | | | | [address] | | | | | | | [...] POC | performed at [facility];[address] | | LABORATORY | | | | [address];[place], [place] | | | | | | [address] | | | | + + + + + + + + | Specimen | + + | | + + + + + + + | Performing | Address | City/State/Zipcode | Phone Number | | Organization | | | | + + + + + | [facility] | [address] | [place] [address] | [phone] | + + + + + POC [...] POC | performed at [facility];[address] | | LABORATORY | | | | [address];[place] | | | | | | [address] | | | | + + + + + + + + | Specimen | + + | | + + + + + + + | Performing | Address | City/State/Zipcode | Phone Number | | Organization | | | | + + + + + | [facility] | [address] | [place] [address] | [phone] | + + + + + documented in this encounter Visit Diagnoses + + | Diagnosis | + + | CKD (chronic kidney disease) stage 5, GFR less than 15 ml/min ([facility]) - Primary Chronic | | kidney [...] One week or | | | longer, hwqhgo-ijc-rlaql use of | | | at least [...] PM PDT | | | | | Jl 09/10/19 at 1245, Pre-op | ia | [...]
--- OUTSIDE RECORDS SUMMARY | ~2020-09-15 | XMS | Encounter Summary ---
Demographics + + + | Address | [address] | | | [place] [address] | + + + | Home Phone [...] Providers + +------+ + | Care Manager Orange Name | Role | Phone | + [...] | | [address] | [place] [address] | | | | | [place] [address] | | | | | | [phone] | | | +--------+ + + + [...] | | | | | | [place] [address] | | | | | | [phone] | | | | | | | [...] [place] | | | | | | [id number] | | | | | | | | +--------+ + + + + | 10/30/ | Virtual | Nephrology | Farrukh Acuna MD | | | 2020 | Office | | [address] | | | | Visit | | [address] [place], [place] | | | | | | [address] | | | | | | | [...]
--- OUTSIDE RECORDS SUMMARY | ~2020-09-15 | XMS | Encounter Summary ---
Demographics + + + | Address | [address] | | | [place] [address] | + + + | Home Phone [...] [place] | | | | | [address] | | + + + + + Care Team Providers + +------+ + | Care Med Spa Manager Name | Role | Phone | [...] [place] | | | | | | [address] | | | | | | [place], [place] | | | | | | [address] | | | | | | [phone] | | | +--------+ + + + [...] as of this encounter Progress Notes Interface, Marinator In - 01/03/2007 5:08 AM PST [facility] and [address] [address] Department of Orthopaedics, School [employer] Medicine OP19 December 21, 1997 Jerry Smiley M.D. [address] [place] [address] [address] [place] [address] RE:Kavon Andujar MR#:[id number] Smiley: Thank [...] Carlson might like. Sincerely, Eric Mcclure M.D. Solar Installation Technician, Department of Orthopaedics and Rehabilitation ERICK/sara A documented in this encounter Plan of Treatment Not on filedocumented as of this encounter Visit Diagnoses Not on filedocumented in this encounter"
--- OUTSIDE RECORDS SUMMARY | ~2020-09-15 | XMS | Encounter Summary ---
Demographics + + + | Address | [address] | | | [place] [address] | + + + | Home Phone [...] Team Providers + +------+ + | Care Refrigerator Crater Name | Role | Phone | + [...] [address] | | | | | [place], [place] | [place], [place] | | | | | [address] | [address] | | | | | [phone] | [phone] | | | | | | | [...] | | | | | | [place] [address] | | | | | | [phone] | | | | | | | [...] [place] | | | | | | [address] | | | | | | | | +--------+ + + + + | 10/30/ | Virtual | Nephrology | Farrukh Acuna MD | | | 2019 | Office | | [address] | | | | Visit | | [address] [place] | | | | | | [address] | | | | | | | [...]
--- OUTSIDE RECORDS SUMMARY | ~2020-09-15 | XMS | Encounter Summary ---
Demographics + + + | Address | [address] | | | [place] [address] | + + + | Home Phone [...] Providers + +------+ + | Care Shake Table Operator Name | Role | Phone | + +------+ + PCP | Unavailable | + +------+ + Encounter Details +--------+ + + + + | Date | Type | Department | Care Team | Description | +--------+ + + + + | 05/28/ | Hospital | [facility] | Elisabeth, | CORON ATHEROSCL | | 2002 - | Encounter | [facility] | MD Joshua | [facility] | | | | CLINICAL DECISION | [address] [place] | | | 05/29/ | | [address] | [address] [place], [place] | | | 2002 | | [place], [place] | [address] | | | | | [address] | [phone] | | | | | [phone] | | | +--------+ + + + [...] | | | | | | DR [address], | | | | | | [place] [address] | | | | | | [phone] | | | | | | | | +--------+ + + + + | 09/19/ | Clinical | Cardiology | | | | 2019 | Support | | | | +--------+ + + + + | 10/03/ | Office | Cardiology | Rno Orosco MD | | | 2019 | Visit | | [address] | | | | | | [place] | | | | | | [address] | | | | | | | | +--------+ + + + + | 10/30/ | Virtual | Nephrology | Farrukh Acuna MD | | | 2019 | Office | | [address] | | | | Visit | | [address] [place], [place] | | | | | | [address] | | | | | | | | +--------+ + + + + documented as of this encounter Visit Diagnoses + + | Diagnosis | + + | Coronary atherosclerosis of [place] coronary artery | + + documented in this encounter"
--- OUTSIDE RECORDS SUMMARY | ~2020-09-15 | XMS | Clinical Summary ---
Demographics + + + | Address | [address] | | | [place] [address] | + + + | Home Phone [...] Team Providers + +------+ + | Care Toy Department Manager Name | Role | Phone [...] Activ | | (NOVOLOG PENFILL) | skin 5 times daily | | | | | e | | 100 units/mL | Per sliding scale; | | | | | | | injection cartridge | Max daily dose: 50 | | | | | | | | units. | | | | | | + + + +---------+------+------+-------+ | | Take 3 mLs by | | 0 | | | Activ | | albuterol-ipratropiu | nebulization 3 times | | | | | e | | m (DUONEB) 2.5-0.5 | daily as needed | | | | | | | mg/3 mL SOLN | (Dyspnea) . | | | | | | + [...] e | + + + +---------+------+------+-------+ | ferrous sulfate | Take 65 mg of iron | | 0 | | | Activ | | 324 (65 Fe) MG EC | by mouth 4 times | | | | | e | | tablet | daily with meals. | | | | | | + + + +---------+------+------+-------+ | doxepin (SINEQUAN) | Take 50 mg by mouth | | 0 | 07/0 | | Activ | | 50 mg capsule | nightly . | | | 1/20 | | e | | | | | | 19 | | | + + + +---------+------+------+-------+ | ONE TOUCH ULTRA | USE TO TEST BLOOD | | 1 | 07/0 | | Activ | | TEST strip | SUGAR five times a | | | 01/20 | | e | | | day | | | 19 | | | + + + +---------+------+------+-------+ | ondansetron | Take 8 mg by mouth | | 0 | / | | Activ | | (ZOFRAN ODT) 8 mg | EVERY 6 TO 8 HOURS | | | 08/20 | | e | | disintegrating | NEEDED for Nausea | | | 19 | | | | tablet | . | | | | | | + [...] | | | | | ([facility]), Secondary | | | | | | | | hyperparathyroidism | | | | | | | | ([facility]) | | | | | | | [...] e | + + + +---------+------+------+-------+ | oxygen [...] tablets by | 180 | 3 | 04 | | Activ | | (DEMADEX) 20 mg | mouth Daily. | tablet | | 03/20 | | e | | tabletIndications: | [...] four times a | tablet | | 520 | | e | | tabletIndications: | [...] the skin Every 28 | | | / | | e | | FREE,) 100 [...] | | | | | ([facility]), Anemia of | | | | | | | | chronic kidney | | | | | | | | failure, stage 5 | | | | | | | | ([facility]), Persistent | | | | | | | | proteinuria, CKD | | | | | | | | (chronic kidney | | | | | | | | disease) stage 5, | | | | | | | | GFR less than 15 | | | | | | | | ml/min ([facility]) | | | | | | | [...] | + + + +---------+------+------+-------+ | insulin glargine | Inject 30 Units | | 0 | | | Activ | | (LANTUS SOLOSTAR) | under the skin | | | | | e | | 100 units/mL | nightly. | | | | | | | injection (pen) | | | | | | | + + + +---------+------+------+-------+ | linaclotide | Take 145 mcg by | | 0 | | | Activ | | (LINZESS) 145 mcg | mouth every morning | | | | | e | | capsule | (before breakfast). | | | | | | + + + +---------+------+------+-------+ | | Inhale 1 puff into | | 0 | | | Activ | | fluticasone-umeclidi | the lungs Daily. | | | | | e | | nium-vilanterol | | | | | | | | (TRELEGY ELLIPTA) | | | | | | | | 100-62.5-25 mcg/puff | | | | | | | | inhaler | | | | | | | + + + +---------+------+------+-------+ | albuterol | Inhale 2 puffs into | | 0 | | | Activ | | (VENTOLIN HFA) 90 | the lungs every 4 | | | | | e | | mcg/puff inhaler | hours as needed for | | | | | | | | Shortness of Breath. | | | | | | + + + +---------+------+------+-------+ | hydrOXYzine | Take 25 mg by mouth | | 0 | | | Activ | | hydrochloride | every 8 hours as | | | | | e | | (ATARAX) 25 mg | needed. | | | | | | | tablet | | | | | | | + + + +---------+------+------+-------+ | nitroglycerin | Place 0.4 mg under | | 0 | | | Activ | | (NITROSTAT) 0.4 mg | the tongue every 5 | | | | | e | | SL tablet | minutes as [...] promptly . | | | | | | + + + +---------+------+------+-------+ | LORazepam (ATIVAN) | Take 0.5 mg by mouth | | 0 | | | Activ | | 0.5 mg tablet | Twice daily as | | | | | e | | | needed For severe | | | | | | | | anxiety . | | | | | | + + + +---------+------+------+-------+ | ipratropium | Take 0.5 mg by | | 0 | | 10/1 | Disco | | (ATROVENT) 500 | nebulization 4 | | | | 6/20 | ntinu | | mcg/2.5 mL nebulizer | (four) times daily. | | | | 20 | ed | | solution | | | | | | (Ther | | | | | | | | apy | | | | | | | | compl | | | | | | | | eted) | + + + +---------+------+------+-------+ | LANTUS SOLOSTAR | Inject 25 Units | | 0 | 05/01 | 10/ | Disco | | 100 UNIT/ML | under the skin | | | 08/20 | 6/20 | ntinu | | injection (pen) | nightly. | | | 19 | 20 | ed | | | | | | | | (Natalia | | | | | | | | n up) | + + + +---------+------+------+-------+ | LINZESS 145 MCG | | | 1 | 2 | 08/31 | Disco | | capsule | | | | 0/20 | 6/20 | ntinu | | | | | | 19 | 20 | ed | | | | | | | | (Dupl | | | | | | | | icate | | | | | | | | | | | | | | | | Entry | | | | | | | | (no | | | | | | | | Cance | | | | | | | | l Rx | | | | | | | | msg)) | + + + +---------+------+------+-------+ | lisinopril [...] msg)) | + + + +---------+------+------+-------+ | VENTOLIN HFA 108 | inhale 2 puffs by | | 0 | 04/0 | 10/1 | Disco | | (90 Base) MCG/ACT | mouth every 4 hours | | | 3/20 | 6/20 | ntinu | | inhaler | if needed for | | | 19 | 20 | ed | | | shortness of breath | | | | | (Natalia | | | | | | | | n up) | + + + +---------+------+------+-------+ | albuterol 2.5 mg/3 | Take 2.5 mg by | | 0 | | 10/1 | Disco | | mL nebulizer | nebulization every 6 | | | | 6/20 | ntinu | | solution | hours as needed for | | | | 20 | ed | | | Wheezing. | | | | | (Ther | | | | | | | | apy | | | | | | | | compl | | | | | | | | eted) | + + + +---------+------+------+-------+ | amLODIPine | Take 1 tablet by | 90 | 3 | 11/0 | 10/0 | Disco | | (NORVASC) 5 mg | mouth Daily. | tablet | | 4/20 | 2/20 | ntinu | | tablet | | | | 19 | 20 | ed | + + + +---------+------+------+-------+ | TRELEGY ELLIPTA | inhale 1 puff by | | 0 | 03/1 | 10/1 | Disco | | 100-62.5-25 MCG/INH | mouth once daily | | | 7/20 | 6/20 | ntinu | | inhaler | | | | 20 | 20 | ed | | | | | | | | (Natalia | | | | | | | | n up) | + + + +---------+------+------+-------+ Active Problems + + + | Problem | Noted Date | + + + | ACS (acute coronary syndrome) | 09/12/2020 | + + + + + | Overview: Stent of lad and cx. Ef 25% | + + + + + | GI bleeding | 09/12/2020 | + + + | Hemoptysis | [...] automatically from request for surgery | | [id number] | + + + + + | [...] & Plan: Controlled on current | | [id number] yr old male with COPD, current heavy [...] | +--------+ + + + + | 09/14/ | Surgery | Cardiology | Ron Orosco MD | CV COR ANGIO | | 2019 | | | | | +--------+ + + + + | 09/12/ | Imaging | Radiology | Provider, | | | 2019 | Exam | | MD Jonathan | | +--------+ + + + + | 09/12/ | Hospital | Critical Care | Pawel Mendieta MD | ACS (acute coronary | | 2019 - | Encounter | Medicine | | syndrome) ([facility]) | | | | | | (Primary Dx); | | 09/15/ | | | | Gastrointestinal | | 2019 | | | | hemorrhage, | | | | | | unspecified | | | | | | gastrointestinal | | | | | | hemorrhage type; | | | | | | ESRD (end stage | | | | | | renal disease) on | | | | | | dialysis ([facility]); | | | | | | NSTEMI (non-ST | | | | | | elevated myocardial | | | | | | infarction) ([facility]); | | | | | | Anemia, unspecified | | | | | | type; Acute | | | | | | respiratory failure | | | | | | with hypoxia ([facility]); | | | | | | CKD (chronic kidney | | | | | | disease) stage 5, | | | | | | GFR less than 15 | | | | | | ml/min ([facility]); Acute | | | | | | on chronic systolic | | | | | | congestive heart | | | | | | failure ([facility]) | +--------+ + + + + | 09/12/ | Telephone | Otolaryngology | Lakesha Sheridan | Appointment | | 2019 | | | BAN Valadez | | +--------+ + + + + | 08/25/ | Telephone | Nephrology | Farrukh Acuna MD | Other (Patient | | 2019 | | | | hospitalized) | +--------+ + + + + | 08/24/ | Hospital | Internal Medicine | Sheyla Sevilla, | ESRD needing | | 2019 - | Encounter | | Dagoberto Platt DO | dialysis ([facility]) | | | | | [facility] | (Primary Dx); | | 09/01/ | | | MD Abdelrahman Nixon, | Hypervolemia, | | 2020 | | | MD Alie Sha, | unspecified | | | | | MD Edmund | hypervolemia type; | | | | | | NSTEMI (non-ST | | | | | | elevated myocardial | | | | | | infarction) ([facility]); | | | | | | Anemia [...] | | | | | failure type (HCC); | | | | | | CKD (chronic kidney | | | | | | disease) stage 5, | | | | | | GFR less than 15 | | | | | | ml/min (HCC); Acute | | | | | | on chronic systolic | | | | | | congestive heart | | | | | | failure (HCC); ESRD | | | | | | on hemodialysis | | | | | | ([facility]); Anemia in | | | | | | ESRD (end-stage | | | | | | renal disease) | | | | | | (HCC); Electrolyte | | | | | | [...] | | | | | with hypoxia ([facility]); | | | | | | Hemoptysis; | | | | | | Hypoalbuminemia; | | | | | | Tonsillar mass; | | | | | | Cervical adenopathy; | | | | | | 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 ([facility]); Acute | | | | | | pulmonary edema | | | | | | (HCC) [...] | | | | | ([facility]); Anemia of | | | | | | chronic kidney | | | | | | failure, stage 5 | | | | | | ([facility]); Iron | | | | | | [...] | | | | | ([facility]); Secondary | | | | | | hyperparathyroidism | | | | | | ([facility]); Edema of | | | | | [...] | | | | | ([facility]); Anemia of | | | | | | chronic kidney | | | | | | failure, stage 5 | | | | | | ([facility]); CKD (chronic | | | | | | kidney disease) | | | | | | stage 5, GFR less | | | | | | than 15 ml/min | | | | | | ([facility]); Persistent | | | | | | proteinuria | +--------+ + + + + | 08/09/ | Documentati | Nephrology | Alfred | Mary ([facility] | | 2019 | on | | Charlie Abdi | ER note 08/01/20) | | | | | Mail Handler | | +--------+ + + + + | 08/01/ | Documentati | Nephrology | Alfred | Mary (FANTASMA hansen | 2019 | on | | Charlie Abdi | order and new | | | | | Mail Handler | procrit order sent | | | [...] | | | | | ([facility]); Anemia of | | | | | | chronic kidney | | | | | | failure, stage 5 | | | | | | ([facility]); Persistent | | | | | | proteinuria; CKD | | | | | | (chronic kidney | | | | | | disease) stage 5, | | | | | | GFR less than 15 | | | | | | ml/min ([facility]) | +--------+ + + + + from Last 3 Months Immunizations + + + + | Name | Administration Dates | Next Due | + + + + | INFLUENZA 65 Y OR >, | 08/09/2020 | | | QUADRIVALENT | | | | HIGH-DOSE | | | + + + + | INFLUENZA 65 Y OR >, | 08/23/2017, 08/02/2016, 09/02/2015, | | | TRIVALENT HIGH-DOSE | 09/07/2014 | | + + + + | INFLUENZA PF 65 Y OR | 08/04/2019, 07/30/2018 | | | >,TRIVALENT (FLUAD) | | | + + + + | INFLUENZA PF | 08/09/2013, 07/29/2012, 08/27/2011 | | | TRIVALENT(PED/ADOL/A | | | | DULT), PSKT | | | + + + + | INFLUENZA TRIV | 08/04/2019 | | | W/PRES(PED/ADOL/ADUL | | | | T),MULTIDOSE | | | + + + + | INFLUENZA, [id number], | 11/27/2009 | | | UNSPECIFIED | | | + + + + | INFLUENZA, | 09/29/2003, 10/16/2000 | | | UNSPECIFIED | | | | FORMULATION | | | + + + + | Influenza, Whole | 10/06/2001, 10/09/1999 | | + + + + | PNEUMOCOCCAL | 08/23/2017, 09/06/2015 | | | CONJUGATE 13-VALENT | | | | (PCV13) | | | + + + + | PNEUMOCOCCAL | 09/07/2014, 09/29/2008, 05/03/2003 | | | POLYSACCHARIDE | | | | 23-VALENT (PPSV23) | | | + + + + | TDAP, (ADOL/ADULT) | 08/03/2016, 08/29/2008 | | + + + + | ZOSTER, 1 DOSE | 09/07/2014 | | | (ZOSTAVAX) | | | + + + + Family [...] | | | | | | [place] [address] | | | | | | [phone] | | | | | | | [...] [place] | | | | | | [address] | | | | | | | | +--------+ + + + + | 10/30/ | Virtual | Nephrology | Farrukh Acuna MD | | | 2019 | Office | | [address] | | | | Visit | | [address] [place] [address] | | | | | | [address] | | | | | | | [...] | | | Pneumococcal 65+ (1 | 9 | | | | of 1 - PPSV23) | | | | + + + + + | Hemoglobin A1c | | 08/25/20 | | | Screening | 1 | 20, | | | [...] + + + | Medication | | 09/14/20 | | | Management | 1 | 20 | | + + + + + | Med Mgmt: Cr | | 09/14/20 | | | | 1 | 20, | | | | | 09/13/20 | | | | | 20, | | | | | 09/12/20 | | | | | 20, | | | | | Addition | | | | | al | | | | | history | | | | | exists | | + + + + + | Med Mgmt: K | | 09/14/20 | | | | 1 | 20, | | | | | 09/13/20 | | | | | 20, | | | | | 09/12/20 | | | | | 20, | | | | | Addition | | | | | al | | | | | history | | | | | exists | | + + + + + | Med Mgmt: Na | | 09/14/20 | | | | 1 | 20, | | | | | 09/13/20 | | | | | 20, | | | | | 09/12/20 | | | | | 20, | [...] | 08/09/20 | | | | | 20, | | | | | 08/04/20 | | | | | 19, | | | | | 08/04/20 | | | | | 19, | | | | | Addition | | | | | al | | | | | history | | | | | exists | | + + + + + Implants + +--------+--------+ +--------+--------+--------+ | Implanted | Type | Area | Manufacture | Device | Shelf | Model | | | | | r | | Expira | / | | | | | | Identi | tion | Serial | | | | | | fier | Date | / Lot | + +--------+--------+ +--------+--------+--------+ | Angioseal Vip 6f - | Generi | N/A: | TERUMNitro KYLE | | | [id number] | | [id number]: Qty: 1 | c | Groin | - TERU | | | / / | | on 09/14/2020 by Ron Orosco | | | | | | | | MD Ilsa at [facility] | | | | | | | | [facility] | | | | | | | + +--------+--------+ +--------+--------+--------+ | Stent Carolina Synergy Mr 2.5 X 28 | Stent | N/A: | [place] | [id number] | 12/21/ | [id number] | | - [id number]: | | Ross | SCIENTIFIC | [id number] | 2021 | [id number] | | Qty: 1 on 09/14/2020 by Kwesi, | | ry | KYLE - BSCI | 75 | | 50 | | Ron Rosenbaum MD at [facility] | | | | | | /[id number] | | [facility] | | | | | | [id number] | | CENTER | | | | | | 250 | | | | | | | | /[id number] | | | | | | | | 620 | + +--------+--------+ +--------+--------+--------+ + + | Description:CAROLINA TO MID LAD | + + + +-------+--------+ +--------+--------+--------+ | Stent Carolina Synergy Mr 3.5 X 16 | Stent | N/A: | [place] | [id number] | 08/09/ | [id number] | | - [id number]: | | Ross | SCIENTIFIC | [id number] | 1 | [id number] | | Qty: 1 on 09/14/2020 by Kwesi, | | ry | KYLE - BSCI | 21 | | 50 | | Ron Rosenbaum MD at [facility] | | | | | | /[id number] | | [facility] | | | | | | [address] | | [place] | | | | | | 350 | | | | | | | | /[address] | | | | | | | | 407 | + +-------+--------+ +--------+--------+--------+ + + | Description:CAROLINA TO PROX. | | CIRC. | + + Procedures + +--------+ + + [...] | + +--------+ + + + | SELINA, MRSA | Routin | 09/12/2020 | | [...] | | | FICATI | | | ON?/ | | | | | | 0 | | | 22:50? | | | ZAVALA | | | , | | | PORFIRIO | | | | | | F?MRN: | | | | | | [id number] | | | [id number] | | | riteri | | | [...] | | | St. | | | [place] | | | y | | | [...] | | | care | | | toddler caregiver | | | to | | | offer | | | inhale | | | r | | | traini | | | ng.6/2 | | | 8/18 | | | 12:00 | | | AM | | | [facility] | [place] | | | y | | | [...] | | | St. | | | [place] | | | y | | | [...] | | | St. | | | [place] | | | y | | | [...] | | | St. | | | [place] | | | y H. | | [...] | | | St. | | | [place] | | | y H. | | [...] | | | St. | | | [place] | | | y H. | | [...] | | | St. | | | [place] | | | y H. | | [...] | | | St. | | | [place] | | | y H. | | [...] | | | St. | | | [place] | | | y H. | | [...] | | | St. | | | [place] | | | y H. | | [...] | | | St. | | | [place] | | | y H. | | [...] | | | St. | | | [place] | | | y H. | | [...] | | | St. | | | [place] | | | y H. | | [...] | | | St. | | | [place] | | | y H. | | [...] | | | 2-7b73 | | | [id number] | | | 9a | | | [...] from Last 3 Months Results POC Glucose (09/15/2020 11:50 AM PDT)Only the most recent of 11 results within the time per iod is included. + +---------+ + + + [...] ST. | [address] | [place], [place] | [phone] | | [facility] | | [address] | | | - LABORATORY | | | | + + + + + Troponin I (09/15/2020 9:22 AM PDT)Only the most recent of 19 results within the time santiago od is [...] | | | | | | [employer] | | | | | [...] [address] | [place] | [phone] | | [facility] | | [address] | | | - LABORATORY | | | | + + + + + ECG 12 lead (09/15/2020 4:18 AM PDT)Only the most recent of 7 results within the time santiago od is [...] | | | | AYAH RON MD ([id number]) | | | | | | on [...] + +---------+ + + CBC no Differential (09/15/2020 3:36 AM PDT)Only the most recent of 7 results within the period is included. + [...] | | Count | | | [facility] | | [...] [address] | [place] | [phone] | | [facility] | | [address] | | | - LABORATORY | | | | + + + + + Renal Function Panel (09/15/2020 3:36 AM PDT)Only the most recent of 3 [...] mL/min/1.73m2 | [facility] | | | [place] | RATE,ESTIMATED | | MEDICAL | | | | mL/min/1.76q8Oksc than | | CENTER - | | | | 60 Chronic kidney | | LABORATORY | | | | disease,if found over a | | | | | | 3-month period.Less than | | | | | | 15 Kidney failure | | | | + + + + + + | eGFR, | 17 (L)Comment: | >=60 | [facility] | | | | GLOMERULAR FILTRATION | mL/min/1.73m2 | [facility] | | | [place] | RATE,ESTIMATED | | MEDICAL | | | | mL/min/1.30g0Kndi than | | CENTER - | | [...] | | | | | mg/dL | [facility] | | | | | | MEDICAL [...] [address] | [place] | [phone] | | [facility] | | [address] | | | - LABORATORY | | [...] and achieved with medication listed by the Breakfast Host nurse | | | under my supervision. [...] + + | Performing | Address | City/State/[facility] | Phone Number | | Organization | | | | + +---------+ + + | [facility] | | | | + +---------+ + + POC ACT (09/14/2020 2:06 PM PDT)Only the most recent of 2 [...] + | [facility] | [address] | [place] | [phone] | | [facility] | | [address] | | | - LABORATORY | | | | + + + + + Hepatitis B Surface Ag (09/14/2020 3:19 AM PDT)Only the most recent of 2 results within time period is included. + + + [...] + + | Performed at: [address] [address], | REFERENCE LAB | | [place], [place] [id number] Clerical Assistant: Thony Valdes MD, Phone: | [facility] | | [phone] | | + + + + + + + + | Performing | Address | City/State/Zipcode | Phone Number | | Organization | | | | + + + + + | REFERENCE LAB | [address] | [place], [place] | [phone] | | [facility] | [address] | [address] | | + + + + + Hemoglobin and Hematocrit (09/13/2020 2:09 PM PDT)Only the most recent of 2 [...] [address] | [place] | [phone] | | [facility] | | [address] | | | - LABORATORY | | [...] [address] | [place] | [phone] | | [facility] | | [address] | | | - LABORATORY | | | | + + + + + B Type Natriuretic Peptide (09/13/2020 2:56 AM PDT)Only the most recent of 2 results withi n the time period is included. + + + + + + | Component | Value | Ref Range | Performed | Pathologist | | | | | At | Signature | + + + + + + | BNP | 2,775 (H)Comment: New | <100 pg/mL | [facility] | | | | method in use as of | | [facility] | | | | January 27, 2019. [...] [address] | [place] | [phone] | | [facility] | | [address] | | | - LABORATORY | | [...] [address] | [place] | [phone] | | [facility] | | [address] | | | - LABORATORY | | | | + + + + + Red Blood Cells (PRBC) - Transfuse (09/12/2020 9:33 AM PDT)Only the most recent of 3 resul ts within the time period is included.Red Blood Cells (PRBC) - Crossmatch (09/12/2020 6:56 AM PDT)Only the most recent of 4 results within the time period is included. + + + + + + | Component | Value | Ref Range | Performed | Pathologist | | | | | At | Signature | + + + + + + | Product | [id number] | | [facility] | | | Code | | | [facility] | | | | | | [facility]ICAL | | | | | | CENTER - | | | | | | BLOOD BANK | | + + + + + + | UNIT # | [id number] | | [facility] | | | | [...] | | | INTERP | | | [facility] | | [...] + + + + | Blood | [id number] | | [facility] | | | Product [...] St | [place] | | | [facility] | | [address] | | | - BLOOD BANK | | | | + + + + + Type and Screen (09/12/2020 4:30 AM PDT)Only the most recent of 2 [...] St | [place] | | | [facility] | | [address] | | | - BLOOD BANK | | | | + + + + + Magnesium (09/12/2020 4:30 AM PDT)Only the most recent of 3 results within the time period is included. + +-------+ + + + | Component [...] [address] | [place] | [phone] | | [facility] | | [address] | | | - LABORATORY | | | | + + + + + Basic Metabolic Panel (09/12/2020 4:30 AM PDT)Only the most recent of 5 results within the time period is included. [...] non- | GLOMERULAR FILTRATION | mL/min/1.73m2 | [facility] | | | [place] | RATE,ESTIMATED | | MEDICAL | | | | mL/min/1.40k0Zpnh than | | CENTER - | | [...] | | GLOMERULAR FILTRATION | mL/min/1.73m2 | [facility] | | | [place] | RATE,ESTIMATED | | MEDICAL | | | | mL/min/1.07s3Aqjc than | | CENTER - | | [...] | | | | | mg/dL | [facility] | | | | | [...] [address] | [place] | [phone] | | [facility] | | [address] | | | - LABORATORY | | | | + + + + + Coronavirus (COVID-19) NAAT (09/12/2020 2:49 AM PDT)Only the most recent of 2 results with in the time period is included. + + [...] [address] | [place] | [phone] | | [facility] | | [address] | | | - LABORATORY | | | | + + + + + Culture, MRSA (09/12/2020 2:41 AM PDT) + + + + + + | Component | Value | Ref Range | Performed | Pathologist | | | | | At | Signature | + + + + + + | Culture | Negative for MRSA by | | [facility] | | | | chromogenic agar method. [...] + | [facility] | [address] | [place] | [phone] | | [facility] | | [address] | | | - LABORATORY | | [...] | + +---------+ + + POC Glucose (09/01/2020 6:29 AM PDT)Only the [...] POC | performed at [facility];[address] | | LABORATORY | | | | [address];[place], [place] | | | | | | [address] | | | | + + + + + + + + | Specimen | + + | | + + + + + + + | Performing | Address | City/State/Zipcode | Phone Number | | Organization | | | | + + + + + | [facility] | [address] | [place] [address] | [phone] | + + + + + Surgical [...] to Dr. Barba. Frozen section performed at [facility]. | | | AI (under the [...] As part of the | | | [employer], this case was reviewed by another member of | | | [facility]. (AMB) MICROSCOPIC EXAMINATION:Histologic sections | | [...] interpretation was performed by | | | [facility], [address], | | | [place], [place] (Intake Man: Pastor Browning M.D.; CLIA#: | | | [id number]).The technical component was performed by [facility] | | | [facility], [address] [place] [address] (Intake Man: | | | Kerry Michel MD; CLIA# [id number]). COMMENT:Surrogate HPV marker p16 is | | [...] | |The professional interpretation was performed by [facility], [facility], [address] [place] [address] (Intake Man: Pastor Browning M.D.; IA#: [id number]). | | |The technical component was performed by [facility], [address] [place] [address] (Intake Man: Kerry Michel MD; CLIA# [id number]). | | | | | |COMMENT: | [...] | | + +---------+ + + CT Angiogram Pulmonary w Contrast [...] Final Report Signed by: Idris Diaz, Collin Sign Date/Time: | | | 08/29/2020 1:54 PM [...] Procedure Note | + + | Wiley, [id number] - 08/29/2020 1:58 PM PDT | | [...] | | | | | | at [facility], [address], [facility], [facility] | | | | | | [address] | | | | + + + + + + + + | Specimen | + + | | + + + + + + + | Performing | Address | City/State/Zipcode | Phone Number | | Organization | | | | + + + + + | [facility] | [address] | [place] [address] | [phone] | + + + + + D-Dimer (08/29/2020 10:32 AM PDT) + + + + + + | Component | Value | Ref Range | Performed | Pathologist | | | | | At | Signature | + + + + + + | D-DIMER | 2.50 (H)Comment: D Dimer | 0.19 - 0.50 | [facility] | | | | results less than [...] | | | | | performed at [facility];[address] | | | | | | [address] [place] | | | | | | [address] | | | | + + + + + + + + | Specimen | + + | Blood | + + + + + + + | Performing | Address | City/State/Zipcode | Phone Number | | Organization | | | | + + + + + | [facility] | [address] | [place] [address] | [phone] | + + + + + Comprehensive [...] 23 (L)Comment: GFR <60: | >60 | [facility] | | | GFR | CHRONIC KIDNEY [...] | | | | | performed at [facility] | | | | | | [facility];[place], [place] | | | | | | [address] | | | | + + + + + + + + | Specimen | + + | Blood | + + + + + + + | Performing | Address | City/State/Zipcode | Phone Number | | Organization | | | | + + + + + | [facility] | [address] | [place] [address] | [phone] | + + + + + XR [...] Report Signed by: | | | Idris Garcia, Charley Sign Date/Time: 08/27/2020 2:02 PM | | [...] Procedure Note | + + | Wiley, [id number] - 08/27/2020 2:05 PM PDT | | [...] | | | + +---------+ + + Protime INR (08/26/2020 5:20 AM PDT)Only the most recent of 2 results within the time santiago od is included. + + + + + + | Component | Value | Ref Range | Performed | Pathologist | | | | | At | Signature | + + + + + + | INR | 1.1Comment: REFERENCE | | [facility] | | | | RANGE:0.9 - 1.2 [...] | | | | | performed at [facility];[address] | | | | | | [address];[place], [place] | | | | | | [address] | | | | + + + + + + + + | Specimen | + + | Blood | + + + + + + + | Performing | Address | City/State/Zipcode | Phone Number | | Organization | | | | + + + + + | [facility] | [address] | [place] [address] | [phone] | + + + + + CBC [...] | | | Absolute | performed at [facility];[address] | [address] | LABORATORY | | | | [address];[place] | | | | | | [address] | | | | + + + + + + + + | Specimen | + + | Blood | + + + + + + + | Performing | Address | City/State/Zipcode | Phone Number | | Organization | | | | + + + + + | [facility] | [address] | [place] [address] | [phone] | + + + + + CK-MB [...] CK Index | UNABLE TO | | MAYELIN | | | | CALCULATEComment: | | LABORATORY | | | | Testing performed at | | | | | | [facility];[address];[place] [address] | | | | + + + + + + + + | Specimen | + + | Blood | + + + + + + + | Performing | Address | City/State/Zipcode | Phone Number | | Organization | | | | + + + + + | [facility] | [address] | [place] [address] | [phone] | + + + + + Hepatitis [...] | | | | | | 0.9The [facility] recommends | | | | | | that a positive HCV | | | | | | antibody resultbe | | | | | | followed up with a HCV | | | | | | Nucleic Acid | | | | | | Amplificationtest | | | | | | ([id number]).Testing | | | | | | performed at [facility], | | | | | | [address], [address], | | | | | | [facility] [address] | | | | + + + + + + + + | Specimen | + + | Blood | + + + + + + + | Performing | Address | City/State/Zipcode | Phone Number | | Organization | | | | + + + + + | [facility] | [address] | [place] [address] | [phone] | + + + + + Hepatitis B Core Ab, Total (08/25/2020 2:48 PM PDT) + + + + + + | Component | Value | Ref Range | Performed | Pathologist | | | | | At | Signature | + + + + + + | Hepatitis B | NegativeComment: Testing | Negative | [facility] | | | Core Ab | performed at [facility], | | LABORATORY | | | Total | [address], [address], | | | | | | [facility] [address] | | | | + + + + + + + + | Specimen | + + | | + + + + + + + | Performing | Address | City/State/Zipcode | Phone Number | | Organization | | | | + + + + + | [facility] | [address] | [place] [address] | [phone] | + + + + + ECHO [...] | + +---------+ + + Lipid Panel (08/25/2020 7:48 AM [...] | 64Comment: Testing | <100 mg/dL | [facility] | | | Calculated | performed at [facility], [address] | | LABORATORY | | | | [address] [place], | | | | | | [place] [address] | | | | + + + + + + + + | Specimen | + + | Blood | + + + + + + + | Performing | Address | City/State/Zipcode | Phone Number | | Organization | | | | + + + + + | [facility] | [address] | [place] [address] | [phone] | + + + + + Hemoglobin A1C (08/25/2020 7:48 AM PDT) + + + + + + | Component | Value | Ref Range | Performed | Pathologist | | | | | At | Signature | + + + + + + | Hemoglobin | 7.1 (H)Comment: | 4.8 - 5.6 % | [facility] | | | A1c | Prediabetes: 5.7 - | | LABORATORY | | | | 6.4 Diabetes: | | | | | | >6.4 | | | | | | Glycemic control for | | | | | | adults with diabetes: | | | | | | <7.0Testing performed at | | | | | | [facility], [address], | | | | | | [facility] [address], [facility] | | | | | | [address] | | | | + + + + + + + + | Specimen | + + | Blood | + + + + + + + | Performing | Address | City/State/Zipcode | Phone Number | | Organization | | | | + + + + + | [facility] | [address] | [place] [address] | [phone] | + + + + + [place] [...] | | | Report Signed by: Idris Valdez Richard Sign Date/Time: 08/25/2020 | | | 7:50 [...] Procedure Note | + + | Wiley, [id number] - 08/25/2020 7:54 AM PDT | | [...] Procedure Note | + + | Wiley, [id number] - 08/24/2020 11:32 PM PDT | | [...] Testing | 2.3 - 4.8 mg/dL | [facility] | | | | performed at [facility];[address] | | LABORATORY | | | | [address];[place], [place] | | | | | | [address] | | | | + + + + + + + + | Specimen | + + | Blood | + + + + + + + | Performing | Address | City/State/Zipcode | Phone Number | | Organization | | | | + + + + + | [facility] | [address] [facility] | [place] [address] | [phone] | + + + + + CBC [...] +--------+ +---------+--------+ | MEDICARE | MEDICA | [id number] | 07/01/20 | [phone] | | Medica | | | RE | | 05-Pre | 5 | | re | | | PART A | | sent | | | | | | AND B | | | | | | + +--------+ +--------+ +---------+--------+ | MEDICARE | MEDICA | [id number] | 07/01/20 | [phone] | | Medica | | | RE | | 05-Pre | 5 | | re | | | PART A | | sent | | | | | | AND B | | | | | | + +--------+ +--------+ +---------+--------+ | [employer] | MODA | [id number] | 07/04/20 | [phone] | | Medica | | MEDICAID HMO | HEALTH | | 19-Pre | 1 | | id | | | MDCD | | sent | | | | | | [place]MO [place] | | | | | | + +--------+ +--------+ +---------+--------+ | [employer] | MODA | [id number] | | [phone] | | Medica | | MEDICAID HMO [...] Porfirio Zavala | Person | Self | [birth year] | [address] | | Arturo | al/Fam | | 1940 | [phone] | [place], [place] | | | chula | | | 1 (Home) | [address] | + +--------+ +--------+ + + | Porfirio Zavala | Person | Self | [address] | | [address] | | Arturo | al/Fam | | 1940 | [phone] | [place], [place] | | | [place]ula | | | 1 (Home) | [address] | + +--------+ +--------+ + + Advance Directives + + + + + | Type | Date Recorded | Patient | Explanation | | | | Continuous Mining Machine Operator | | + + + + + | Power of | | | | | Driver Supervisor | | | | + + + + + | Advance | 09/01/2019 3:29 | | | | Directive | PM | | | + + + + + + + + + + | Code Status | Date | Date | Comments | | | Activated | Inactivated | | + + + + + | Full Code | 09/12/2020 | 09/15/2020 | | | | 2:39 AM | 4:23 PM | | + + + + + + + + +---+ | | | | | + + + +---+ | Full Code | 08/25/2020 | 09/01/2020 | | | | 4:48 AM | 12:27 PM | | + + + +---+ [...]
--- OUTSIDE RECORDS SUMMARY | ~2020-09-15 | XMS | Encounter Summary ---
Demographics + + + | Address | [address] | | | [place] [address] | + + + | Home Phone [...] + | 03/13/ | Orders Only | [facility] | Conversion | | | 2016 | | NEPHROLOGY [place] | Transaction, | | | | | [address] | Provider Unknown | | | | | [address] | | | | | | [address] | (Fax) | | | | | [phone] | | | +--------+ + + + [...] | | | | | | [place] [address] | | | | | | [phone] | | | | | | | [...] [place] | | | | | | [address] | | | | | | | | +--------+ + + + + | 10/30/ | Virtual | Nephrology | Farrukh Acuna MD | | | 2019 | Office | | [address] | | | | Visit | | [address] [place] | | | | | | [address] | | | | | | | [...] - 1.030 | EXTERNAL | | | [place], | | | LAB | | [...] | | | LAB | | | [place] | | | | | + + [...]
--- OUTSIDE RECORDS SUMMARY | ~2020-09-15 | XMS | Encounter Summary ---
Demographics + + + | Address | [address] | | | [place] [address] | + + + | Home Phone [...] Team Providers + +------+ + | Care Invasive Physician Name | Role | Phone | + +------+ + | Mehrdad Bergman | PCP | | + +------+ + Encounter Details +--------+ + + + + | Date | Type | Department | Care Team | Description | +--------+ + + + + | 08/09/ | Orders Only | [facility] | Farrukh Acuna MD | Essential | | 2020 | | NEPHROLOGY [place] | [address] | hypertension | | | | [address] | [address] [place], [place] | (Primary Dx); Type 2 | | | | [address] [place], [place] | [address] | diabetes mellitus | | | | [address] | | with diabetic | | | | [phone] | | nephropathy, with | | | | | | long-term current | | | | | | use of insulin | | | | | | ([facility]); Anemia of | | | | | | chronic kidney | | | | | | failure, stage 5 | | | | | | ([facility]); CKD (chronic | | | | | | kidney disease) | | | | | | stage 5, GFR less | | | | | | than 15 ml/min | | | | | | ([facility]); Persistent | | | | | | [...] | | | | | | [place] [address] | | | | | | [phone] | | | | | | | [...] | | | Visit | | [address] [place], [place] | | | | | | [address] | | | | | | | [...] insulin (HCC) | | | | | | Anemia of chronic | | | | | | kidney failure, | | | | | | stage 5 (HCC) CKD | | | | | | (chronic kidney | | | | | | disease) stage 5, | | | | | | GFR less than 15 | | | | | | ml/min ([facility]) | | | | | | Persistent [...] | | use of insulin ([facility]) | | | | | | Anemia of chronic | | | | | | kidney failure, | | | | | | stage 5 ([facility]) CKD | | | | | | (chronic kidney | | | | | | disease) stage 5, | | | | | | GFR less than 15 | | | | | | ml/min ([facility]) | | | | | | Persistent [...] | | use of insulin ([facility]) | | | | | | Anemia of chronic | | | | | | kidney failure, | | | | | | stage 5 ([facility]) CKD | | | | | | (chronic kidney | | | | | | disease) stage 5, | | | | | | GFR less than 15 | | | | | | ml/min ([facility]) | | | | | | Persistent [...] | | use of insulin ([facility]) | | | | | | Anemia of chronic | | | | | | kidney failure, | | | | | | stage 5 ([facility]) CKD | | | | | | (chronic kidney | | | | | | disease) stage 5, | | | | | | GFR less than 15 | | | | | | ml/min ([facility]) | | | | | | Persistent [...] | | use of insulin ([facility]) | | | | | | Anemia of chronic | | | | | | kidney failure, | | | | | | stage 5 ([facility]) CKD | | | | | | (chronic kidney | | | | | | disease) stage 5, | | | | | | GFR less than 15 | | | | | | ml/min ([facility]) | | | | | | Persistent [...] | | use of insulin ([facility]) | | | | | | Anemia of chronic | | | | | | kidney failure, | | | | | | stage 5 ([facility]) CKD | | | | | | (chronic kidney | | | | | | disease) stage 5, | | | | | | GFR less than 15 | | | | | | ml/min ([facility]) | | | | | | Persistent [...] | | use of insulin ([facility]) | | | | | | Anemia of chronic | | | | | | kidney failure, | | | | | | stage 5 ([facility]) CKD | | | | | | (chronic kidney | | | | | | disease) stage 5, | | | | | | GFR less than 15 | | | | | | ml/min ([facility]) | | | | | | Persistent [...] | | use of insulin ([facility]) | | | | | | Anemia of chronic | | | | | | kidney failure, | | | | | | stage 5 ([facility]) CKD | | | | | | (chronic kidney | | | | | | disease) stage 5, | | | | | | GFR less than 15 | | | | | | ml/min ([facility]) | | | | | | Persistent [...] | | use of insulin ([facility]) | | | | | | Anemia of chronic | | | | | | kidney failure, | | | | | | stage 5 ([facility]) CKD | | | | | | (chronic kidney | | | | | | disease) stage 5, | | | | | | GFR less than 15 | | | | | | ml/min ([facility]) | | | | | | Persistent | | | | | | proteinuria | | + +------+--------+ + + documented as of this encounter Visit Diagnoses + + | Diagnosis | + + | Essential hypertension - Primary Unspecified essential hypertension | + + | Type 2 diabetes mellitus with diabetic nephropathy, with long-term current use of | | insulin ([facility]) | + + | Anemia of chronic kidney failure, stage 5 ([facility]) | + + | CKD (chronic kidney disease) stage 5, GFR less than 15 ml/min ([facility]) Chronic kidney | | disease, Stage V | + + | Persistent proteinuria Proteinuria | + + documented in this encounter"
--- OUTSIDE RECORDS SUMMARY | ~2020-09-15 | XMS | Encounter Summary ---
Demographics + + + | Address | [address] | | | [place] [address] | + + + | Home Phone [...] Providers + +------+ + | Care Environmental Health Nurse Name | Role | Phone | [...] | on | NEPHROLOGY [place] | [facility] | | | | | [address] | Bed Laborer | | | | | [address] [facility] | | | | | | [place], [place] | | | | | | [address] | | | | | | [phone] | | | +--------+ + + + [...] | | 2019 | Visit | | [address] | | | | | | [address], | | | | | | [place] [address] | | | | | | [phone] | | | | | | | [...] [place] | | | | | | [address] | | | | | | | | +--------+ + + + + | 10/30/ | Virtual | Nephrology | Farrukh Acuna MD | | | 2019 | Office | | [address] | | | | Visit | | [address] [place] | | | | | | [address] [...]
--- OUTSIDE RECORDS SUMMARY | ~2020-09-15 | XMS | Encounter Summary ---
Demographics + + + | Address | [address] | | | [place] [address] | + + + | Home Phone [...] Providers + +------+ + | Care Nuclear Physicist Name | Role | Phone | + +------+ + | Rahul Silva MD | PCP | | + +------+ + Encounter Details +--------+ + + + + | Date | Type | Department | Care Team | Description | +--------+ + + + + | 07/18/ | Orders Only | [facility] | Conversion | | | 2015 | | NEPHROLOGY [place] | Transaction, | | | | | [address] [facility] | Provider Unknown | | | | | [address] [place] | [phone] | | | | | [address] | | | | | | [phone] | | | +--------+ + + + [...] | | | | | | [place] [address] | | | | | | [phone] | | | | | | | [...] [place] | | | | | | [id number] | | | | | | | | +--------+ + + + + | 10/30/ | Virtual | Nephrology | Farrukh Acuna MD | | | 2020 | Office | | [address] | | | | Visit | | [address] [place], [place] | | | | | | [address] | | | | | | | [...] - 1.030 | EXTERNAL | | | [place], | | | LAB | | | [...] | | | LAB | | | [place] | | | | | + + [...]
--- OUTSIDE RECORDS SUMMARY | ~2020-09-15 | XMS | Encounter Summary ---
Demographics + + + | Address | [address] | | | [place] [address] | + + + | Home Phone [...] Providers + +------+ + | Care Fiber Technologist Name | Role | Phone | [...] + + | 09/01/ | Telephone | [facility] | Farrukh Acuna MD | Other | | 2019 | | NEPRHOLOGY [place] | [address] | | | | | [address] | [address] [place], [place] | | | | | [address] [place], [place] | [address] | | | | | [address] | | | | | | [phone] | | | +--------+ + + + [...] Miscellaneous Notes Telephone Encounter - Trinidad Simon Traffic Analyst - 09/02/2019 9:46 AM Henrry Acuna if the patients provider would like to discuss lab results they can call his cell p lexie at any time. Called to relay message to krys but was unable to reach her I left thomas dick with information and clinic name and number for her to call back with any questions.Elect ronically signed by Trinidad Simon Traffic Analyst at 09/02/2019 9:48 AM Chandrika e Encounter - Laureen Gill V - 09/01/2019 1:22 PM PDTProvider: [place]/Surgery Concerns patient and daughter called wanting to ask Armand if he can call him to discuss lab result a nd also concerns of the surgery due to his 2 blood clots on his arms. Surgery is on 09/10/19 . Please call them back at [phone]. Detailed message may be left on phone: Yes Last OV: 07/26/19 Next OV: 10/04/19 If this is a symptom based call and you were unable to immediately transfer the call to [facility] staff, was caller made aware that if at any timeshefeels it is an emergency they shoul d call 911 or go to the nearest emergency room? No Is associate professor of literature needed: no documented in this enc ounter Plan of Treatment +--------+ + + + + | Date | Type | Specialty | Care Team | Description | +--------+ + + + + | 09/19/ | Office | Cardiology | OdonnellMarch, | | | 2019 | Visit | | BOLTER HELPER [address] | | | | | | [address], | | | | | | [place] [address] | | | | | | [phone] | | | | | | | [...] [place] | | | | | | [address] | | | | | | | | +--------+ + + + + | 10/30/ | Virtual | Nephrology | Farrukh Acuna MD | | | 2019 | Office | | [address] | | | | Visit | | [address] [place] | | | | | | [address] | | | | | | | | +--------+ + + + + documented as of this encounter Visit Diagnoses Not on filedocumented in this encounter"
--- OUTSIDE RECORDS SUMMARY | ~2020-09-15 | XMS | Encounter Summary ---
Demographics + + + | Address | [address] | | | [place] [address] | + + + | Home Phone [...] Providers + +------+ + | Care Manager Long Term Care Name | Role | Phone | + +------+ + | Rahul Silva MD | PCP | | + +------+ + Encounter Details +--------+ + + + + | Date | Type | Department | Care Team | Description | +--------+ + + + + | 10/08/ | Orders Only | [facility] | Farrukh Aucna MD | | | 2016 | | NEPHROLOGY [place] | [address] | | | | | [address] | [address] [place], [place] | | | | | [address] | [address] | | | | | [address] | | | | | | [phone] | | | +--------+ + + + [...] | | | | | | [place] [address] | | | | | | [phone] | | | | | | | [...] [place] | | | | | | [address] | | | | | | | | +--------+ + + + + | 10/30/ | Virtual | Nephrology | Farrukh Acuna MD | | | 2019 | Office | | [address] | | | | Visit | | [address] [place] | | | | | | [address] | | | | | | | [...]
--- OUTSIDE RECORDS SUMMARY | ~2020-09-15 | XMS | Encounter Summary ---
Demographics + + + | Address | [address] | | | [place] [address] | + + + | Home Phone [...] Providers + +------+ + | Care Teacher Of The Sight Impaired Name | Role | Phone | + [...] | | | stage 5, GFR | [address] | | | | | | less than | Phone: | | | | | | 15 ml/min | [phone] | | | | | | (HCC) | Fax: | | | | | | Procedures | [phone] | | | | | | [place] [...] + + | 10/20/ | Office | [facility] | Trisha Conner, MERY | CKD (chronic kidney | | 2019 | Visit | VASCULAR SURGERY | [address] | disease) stage 5, | | | | [address] | [address] [place], [place] | GFR less than 15 | | | | [place], [place] | [address] | ml/min (HCC) | | | | [address] | | (Primary Dx); AVF | | | | [phone] | | (arteriovenous | | | | [...] Trisha Conner DNP - 10/20/2019 2:30 PM [facility] [address] [place] [address] Office: [phone] DATE OF VISIT: 10/20/2019 PATIENT NAME: Kavon Andujar : 1940; AGE: 79 y.o.; Sex:M PHONE NUMBER: ; ; PROVIDER: Trisha Conner DNP PRIMARY CARE / REFERRING PHYSICIAN: No ref. provider found / Rahul Silva MD / [address] [facility] [address] / [place] [address] REASON FOR EVALUATION / CHIEF COMPLAINT: Vascular Surgery Postoperative Visit for AVF creation The patient presents today for a Vascular Surgery Postoperative Visit. The patient is statu s post right brachiocephalic AVF creation, which was performed on 09/10/2019 at the [facility]. The patient is not having any pain. The patient denie s fever, wound drainage, increasing redness, pus, increasing pain, increasing swelling. Phys ical examination revealed surgical incision is healed. He has good thrills over the AVF site . Patient's liquid waste treatment plant operator is Dr. Acuna. The patient is not [...] | | 2019 | Visit | | VIBRATION TECHNICIAN [address] | | | | | | [address], | | | | | | [place] [address] | | | | | | [phone] | | | | | | | [...] [place] | | | | | | [address] | | | | | | | | +--------+ + + + + | 10/30/ | Virtual | Nephrology | Farrukh Acuna MD | | | 2019 | Office | | [address] | | | | Visit | | [address] [place] | | | | | | [address] [...]
--- OUTSIDE RECORDS SUMMARY | ~2020-09-15 | XMS | Encounter Summary ---
Demographics + + + | Address | [address] | | | [place] [address] | + + + | Home Phone [...] Team Providers + +------+ + | Care Acute Care Registered Nurse Name | Role | Phone | + +------+ + | Rahul Silva MD | PCP | | + +------+ + Encounter Details +--------+ + + + + | Date | Type | Department | Care Team | Description | +--------+ + + + + | 12/07/ | Orders Only | [facility] | Farrukh Acuna MD | Essential | | 2020 | | NEPHROLOGY [place] | [address] | hypertension | | | | [address] | [address] [place], [place] | (Primary Dx); | | | | [address] [facility], [place] | [address] | Secondary | | | | [address] | | hyperparathyroidism | | | | [phone] | | (HCC); Anemia of | | | | | | chronic kidney | | | | | | failure, stage 5 | | | | | | ([facility]); CKD (chronic | | | | [...] | | | | | | [place] [address] | | | | | | [phone] | | | | | | | [...] [place] | | | | | | [id number] | | | | | | | | +--------+ + + + + | 10/30/ | Virtual | Nephrology | Farrukh Acuna MD | | | 2020 | Office | | [address] | | | | Visit | | [address] [place], [place] | | | | | | [address] | | | | | | | [facility] | | | | | | [...] [facility] | | | | | | [...] [facility] | | | | | | [...] [facility] | | | | | | [...] [facility]) | | | | | | [...] | ([facility]) CKD (chronic | | | | | | kidney disease) | | | | | | stage 5, GFR less | | | | | | than 15 ml/min ([facility] | ([facility]) CKD (chronic | | | | | | kidney disease) | | | | | | stage 5, GFR less | | | | | | than 15 ml/min ([facility]) | | + +------+--------+ + + | Parathyroid Hormone, | Lab | Routin | Essential | Expected: | | Intact | | e | hypertension | 01/07/2020, Expires: | | | | | Secondary | 12/07/2020 | | | | | hyperparathyroidism | | | | | | ([facility]) CKD (chronic | | | | | | kidney disease) | | | | | | stage 5, GFR less | | | | | | than 15 ml/min ([facility]) | | | | | | [...] [facility] | + + | CKD (chronic kidney disease) stage 5, GFR less than 15 ml/min ([facility]) Chronic kidney | | disease, Stage V | + + | Persistent proteinuria Proteinuria | + + documented in this encounter"
--- OUTSIDE RECORDS SUMMARY | ~2020-09-15 | XMS | Encounter Summary ---
Demographics + + + | Address | [address] | | | [place] [address] | + + + | Home Phone [...] [place] | | | | | [phone] | | + + + + + Care Team Providers + +------+ + | Care Plastic Tubing Insulation Supervisor Name | Role | Phone [...] [address] | | | | | | [place] | | | | | | [phone] | | | +--------+ + + + [...] as of this encounter Discharge Summaries Interface, Electronics Tester In - 04/01/2007 5:08 AM PDT [address] [address] [facility] MEDICAL SUMMARY OF HOSPITALIZATION Med Rec No.: [...] [email or web address] [id number] cc: RUBIA KNAPP MD [phone] [facility] [id number] documented in this encounter Plan of Treatment Not on filedocumented as of this encounter Visit Diagnoses Not on filedocumented in this encounter"
--- OUTSIDE RECORDS SUMMARY | ~2020-09-15 | XMS | Encounter Summary ---
Demographics + + + | Address | [address] | | | [place] [address] | + + + | Home Phone [...] Providers + +------+ + | Care Commutator V Ring Assembler Name | Role | Phone | + +------+ + | Mehrdad Bergman | PCP | | + +------+ + Encounter Details +--------+ + + + + | Date | Type | Department | Care Team | Description | +--------+ + + + + | 07/27/ | Orders Only | [facility] | Farrukh Acuna MD | Essential | | 2020 | | NEPHROLOGY [place] | [address] | hypertension | | | | [address] | [address] [place], [place] | (Primary Dx); Type 2 | | | | [address] [place], [place] | [address] | diabetes mellitus | | | | [address] | | with diabetic | | | | [phone] | | nephropathy, with | | | | | | long-term current | | | | | | use of insulin | | | | | | ([facility]); Anemia of | | | | | | chronic kidney | | | | | | failure, stage 5 | | | | | | ([facility]); Persistent | | | | | | proteinuria; CKD | | | | | | (chronic kidney | | | | | | disease) stage 5, | | | | | | GFR less than 15 | | | | | | ml/min ([facility]) | +--------+ + [...] | | | | | | [place] [address] | | | | | | [phone] | | | | | | | [...] | | Visit | | [address] [place], [place] | | | | | | [address] | | | | | | | [...] ([facility]) | + + | Persistent proteinuria Proteinuria | + + | CKD (chronic kidney disease) stage 5, GFR less than 15 ml/min ([facility]) Chronic kidney | | disease, Stage V | + + documented in this encounter"
--- OUTSIDE RECORDS SUMMARY | ~2020-09-15 | XMS | Encounter Summary ---
Demographics + + + | Address | [address] | | | [place] [address] | + + + | Home Phone [...] Team Providers + +------+ + | Care Master Control Operator Name | Role | Phone | [...] [address] | | | | | [place], [place] | [place], [place] | | | | | [address] | [address] | | | | | [phone] | [phone] | | | | | | | [...] | | | | | | [place] [address] | | | | | | [phone] | | | | | | | [...] [place] | | | | | | [address] | | | | | | | | +--------+ + + + + | 10/30/ | Virtual | Nephrology | Farrukh Acuna MD | | | 2019 | Office | | [address] | | | | Visit | | [address] [place] | | | | | | [address] | | | | | | | [...]
--- OUTSIDE RECORDS SUMMARY | ~2020-09-15 | XMS | Encounter Summary ---
Demographics + + + | Address | [address] | | | [place] [address] | + + + | Home Phone [...] Team Providers + +------+ + | Care Draw Off Worker Name | Role | Phone | + +------+ + | Rahul Silva MD | PCP | | + +------+ + Encounter Details +--------+ + + + + | Date | Type | Department | Care Team | Description | +--------+ + + + + | 07/11/ | Orders Only | [facility] | Farrukh Acuna MD | | | 2013 | | NEPHROLOGY [place] | [address] | | | | | [address] | [address] [place], [place] | | | | | [address] [place] | [address] | | | | | [address] | | | | | | [phone] | | | +--------+ + + + [...] | | | | | | [place] [address] | | | | | | [phone] | | | | | | | [...] [place] | | | | | | [address] | | | | | | | | +--------+ + + + + | 10/30/ | Virtual | Nephrology | Farrukh Acuna MD | | | 2019 | Office | | [address] | | | | Visit | | [address] [place], [place] | | | | | | [address] | | | | | | | [...]
--- OUTSIDE RECORDS SUMMARY | ~2020-09-15 | XMS | Encounter Summary ---
Demographics + + + | Address | [address] | | | [place] [address] | + + + | Home Phone [...] [place] | | | | | [address] | | + + + + + Care Team Providers + +------+ + | Care Brick Dropper Name | Role | Phone | + +------+ + PCP | Unavailable | + +------+ + Encounter Details +--------+ + + + + | Date | Type | Department | Care Team | Description | +--------+ + + + + | 03/30/ | Results | | Other, Faculty | | | 1992 | Only | | [phone] | | +--------+ + + + + [...] | | + +---------+ + + | [facility] DEPARTMENT OF | | | | [...] | | | | | | | [id number] AND | | | | | | [...] | | + +---------+ + + | [facility] DEPARTMENT OF | | | | [...] | | + +---------+ + + | [facility] DEPARTMENT OF | | | | [...] | | + +---------+ + + | [facility] DEPARTMENT OF | | | | [...] | | | | | | | [id number] | | | | | | CHEST: [...] | | + +---------+ + + | [facility] DEPARTMENT OF | | | | [...] | | | | | | | [id number] | | | | | | CHEST: [...] | | + +---------+ + + | [facility] DEPARTMENT OF | | | | [...] | | | | | | | [id number], | | | | | | PORTABLE, [...] | | + +---------+ + + | [facility] DEPARTMENT OF | | | | [...] | | | | | | | [id number], | | | | | | PORTABLE, [...] and | | | | | | Adolphus Ganzcatheter are | | | | | [...] | | + +---------+ + + | [facility] DEPARTMENT OF | | | | [...] | | | | | | [facility] | | | | | | Bilateral [...] | | | | | | a Adolphus-Lupe catheter | | | | | | [...] | | | | placement of a Adolphus-Lupe | | | | | | catheter. CHEST, | | | | | | SINGLE AP PORTABLE: | | | | | | 03-31-93 AT 1000 HOURS | | | | | | FINDINGS: Since the | | | | | | prior study, the | | | | | | Adolphus-Lupe catheter has | | | | | [...] IMPRESSION: | | | | | | Adolphus-Lupe catheter | | | | | | [...] The | | | | | | Adolphus-Lupe catheter | | | | | | [...] and | | | | | | Adolphus-Lupe catheter | | | | | | [...] endotracheal | | | | | | tube,Adolphus-Lupe catheter | | | | | | [...] | | | | | | a Adolphus-Lupe catheter | | | | | | [...] | | | | placement of a Adolphus-Lupe | | | | | | catheter. CHEST, | | | | | | SINGLE AP PORTABLE: | | | | | | 03-31-93 AT 1000 HOURS | | | | | | FINDINGS: Since the | | | | | | prior study, the | | | | | | Adolphus-Lupe catheter has | | | | | [...] IMPRESSION: | | | | | | Adolphus-Lupe catheter | | | | | | [...] The | | | | | | Adolphus-Lupe catheter | | | | | | [...] and | | | | | | Adolphus-Lupe catheter | | | | | | [...] endotracheal | | | | | | tube,Adolphus-Lupe catheter | | | | | | [...] | | | | | | a Adolphus-Lupe catheter | | | | | | [...] | | | | placement of a Adolphus-Lupe | | | | | | catheter. CHEST, | | | | | | SINGLE AP PORTABLE: | | | | | | 03-31-93 AT 1000 HOURS | | | | | | FINDINGS: Since the | | | | | | prior study, the | | | | | | Adolphus-Lupe catheter has | | | | | [...] IMPRESSION: | | | | | | Adolphus-Lupe catheter | | | | | | [...] The | | | | | | Adolphus-Luep catheter | | | | | | [...] and | | | | | | Adolphus-Lupe catheter | | | | | | [...] endotracheal | | | | | | tube,Adolphus-Lupe catheter | | | | | | [...] | | + +---------+ + + | [facility] DEPARTMENT OF | | | | [...] | | | | | | a Adolphus-Lupe catheter | | | | | | [...] | | | | placement of a Adolphus-Lupe | | | | | | catheter. CHEST, | | | | | | SINGLE AP PORTABLE: | | | | | | 03-31-93 AT 1000 HOURS | | | | | | FINDINGS: Since the | | | | | | prior study, the | | | | | | Adolphus-Lupe catheter has | | | | | [...] IMPRESSION: | | | | | | Adolphus-Lupe catheter | | | | | | [...] The | | | | | | Adolphus-Lupe catheter | | | | | | [...] and | | | | | | Adolphus-Lupe catheter | | | | | | [...] endotracheal | | | | | | tube,Adolphus-Lupe catheter | | | | | | [...] | | + +---------+ + + | [facility] DEPARTMENT OF | | | | [...] | | | | | | a Adolphus-Lupe catheter | | | | | | [...] | | | | placement of a Adolphus-Lupe | | | | | | catheter. CHEST, | | | | | | SINGLE AP PORTABLE: | | | | | | 03-31-93 AT 1000 HOURS | | | | | | FINDINGS: Since the | | | | | | prior study, the | | | | | | Adolphus-Lupe catheter has | | | | | [...] IMPRESSION: | | | | | | Adolphus-Lupe catheter | | | | | | [...] The | | | | | | Adolphus-Lupe catheter | | | | | | [...] and | | | | | | Adolphus-Lupe catheter | | | | | | [...] endotracheal | | | | | | tube,Adolphus-Lupe catheter | | | | | | [...] | | + +---------+ + + | [facility] DEPARTMENT OF | | | | [...] | | | | | | a Adolphus-Lupe catheter | | | | | | [...] | | | | placement of a Adolphus-Lupe | | | | | | catheter. CHEST, | | | | | | SINGLE AP PORTABLE: | | | | | | 03-31-93 AT 1000 HOURS | | | | | | FINDINGS: Since the | | | | | | prior study, the | | | | | | Adolphus-Lupe catheter has | | | | | [...] IMPRESSION: | | | | | | Adolphus-Lupe catheter | | | | | | [...] The | | | | | | Adolphus-Lupe catheter | | | | | | [...] and | | | | | | Adolphus-Lupe catheter | | | | | | [...] endotracheal | | | | | | tube,Adolphus-Lupe catheter | | | | | | [...] | | + +---------+ + + | [facility] DEPARTMENT OF | | | | [...] | | | | | | a Adolphus-Lupe catheter | | | | | | [...] | | | | placement of a Adolphus-Lupe | | | | | | catheter. CHEST, | | | | | | SINGLE AP PORTABLE: | | | | | | 03-31-93 AT 1000 HOURS | | | | | | FINDINGS: Since the | | | | | | prior study, the | | | | | | Adolphus-Lupe catheter has | | | | | [...] IMPRESSION: | | | | | | Adolphus-Lupe catheter | | | | | | [...] The | | | | | | Adolphus-Lupe catheter | | | | | | [...] and | | | | | | Adolphus-Lupe catheter | | | | | | [...] endotracheal | | | | | | tube,Adolphus-Lupe catheter | | | | | | [...] | | + +---------+ + + | [facility] DEPARTMENT OF | | | | | RADIOLOGY | | | | + +---------+ + + documented in this encounter Visit Diagnoses Not on filedocumented in this encounter"
--- OUTSIDE RECORDS SUMMARY | ~2020-09-15 | XMS | Encounter Summary ---
Demographics + + + | Address | [address] | | | [place] [address] | + + + | Home Phone [...] [place] | | | | | [address] | | + + + + + Care Team Providers + +------+ + | Care Endocrinologist Name | Role | Phone | + [...] | | | amputation | [place], | [place], [place] | | | | | stump, | [place] [address] | [address] | | | | | unspecified | Phone: | Phone: | | | | | | [phone] | [phone] | | | | | | Fax: | Fax: | | | | | | [phone] | [phone] | +--------+--------+ + + + + Encounter Details +--------+---------+ + + + | Date | Type | Department | Care Team | Description | +--------+---------+ + + + | 04/10/ | Office | [facility] | Seven Reilly MD | Low back pain; | | 2009 | Visit | Pain Center at | [address] | Herniated lumbar | | | | [facility] | [place], [place] | intervertebral disc; | | | | [address] | [address] | Stump pain (HCC) | | | | [facility] | [phone] | | | | | and Healing, | | | | | | Building | | | | | | Floor [place], [place] | | | | | | [address] | | | | | | [phone] | | | +--------+---------+ + + + [...] edited the trainee's note. Seven Reilly MD, [facility], [facility], Mariano Rubio MD - 04/10/2010 12:30 PM PDT [facility] Office Visit 04/10/2010 Kavon Andujar; ; : 1940 Mr. Andujar was referred for pain management consultation by HARDIK COYNE MD [address] [place] [address] Reason for visit: Chief Complaint Patient presents [...] pain. He has been referred to the [facility] for consultation regarding [...] that the most effective treatments include: medications. 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 Follow up: none scheduled at [facility]. Mariano Martinez MD Pain Fellow [facility] documented in [...]
--- OUTSIDE RECORDS SUMMARY | ~2020-09-15 | XMS | Encounter Summary ---
Demographics + + + | Address | [address] | | | [place] [address] | + + + | Home Phone [...] Team Providers + +------+ + | Care Dance Artist Name | Role | Phone | [...] + + | 08/09/ | Documentati | [facility] | Simon, | Other ([place] | | 2019 | on | NEPHROLOGY [place] | Charlie Abdi | ER note 08/01/20) | | | | [address] | Security Lead | | | | | [address] [facility] [place] | | | | | | [address] | | | | | | [phone] | | | +--------+ + + + [...] | | | | | | [place] [address] | | | | | | [phone] | | | | | | | [...] [place] | | | | | | [id number] | | | | | | | | +--------+ + + + + | 10/30/ | Virtual | Nephrology | Farrukh Acuna MD | | | 2019 | Office | | [address] | | | | Visit | | [address] [place] | | | | | | [address] | | | | | | | [...]
--- OUTSIDE RECORDS SUMMARY | ~2020-09-15 | XMS | Encounter Summary ---
Demographics + + + | Address | [address] | | | [place] [address] | + + + | Home Phone [...] Team Providers + +------+ + | Care Publicity Expert Name | Role | Phone | + +------+ + | Rahul Silva MD | PCP | | + +------+ + Encounter Details +--------+ + + + + | Date | Type | Department | Care Team | Description | +--------+ + + + + | 04/10/ | Orders Only | [facility] | Conversion | | | 2014 | | [place] | Transaction, | | | | | [address] | Provider Unknown | | | | | [address] [place], [place] | [phone] | | | | | [address] | | | | | | [phone] | | | +--------+ + + + [...] | | | | | | [place] [address] | | | | | | [phone] | | | | | | | [...] | | Visit | | [address] [place], [place] | | | | | | [address] | | | | | | | [...]
--- OUTSIDE RECORDS SUMMARY | ~2020-09-15 | XMS | Encounter Summary ---
Demographics + + + | Address | [address] | | | [place] [address] | + + + | Home Phone [...] Team Providers + +------+ + | Care Peripheral Vascular Tech Name | Role | Phone | [...] + + | 08/01/ | Documentati | [facility] | Alfred, | Other ([facility]ersonya[facility] | | 2020 | on | NEPHROLOG[place] | [facility] | order and new | | | | [address] | Running Instructor | procrit order sent | | | | [address] [place], [place] | | to [facility] Shannan [place]T | | | | [address] | | confirmation | | | | [phone] | | received 07/28) | +--------+ + [...] | | | | | | [place] [address] | | | | | | [phone] | | | | | | | [...] [place] | | | | | | [address] | | | | | | | | +--------+ + + + + | 10/30/ | Virtual | Nephrology | Farrukh Acuna MD | | | 2019 | Office | | [address] | | | | Visit | | [address] [place] | | | | | | [address] | | | | | | | | +--------+ + + + + documented as of this encounter Visit Diagnoses Not on filedocumented in this encounter"
--- OUTSIDE RECORDS SUMMARY | ~2020-09-15 | XMS | Encounter Summary ---
Demographics + + + | Address | [address] | | | [place] [address] | + + + | Home Phone [...] [place] | | | | | [address] | | + + + + + Care Team Providers + +------+ + | Care Hamper Maker Name | Role | Phone | [...] [place] | | | | | | [facility], [address] [place] [address] | | | | | | [place], [place] | | | | | | [address] | | | | | | [phone] | | | +--------+ + + + [...] as of this encounter Discharge Summaries Interface, Forging Roll Operator In - 02/05/2007 1:03 AM PST [address] [address] [facility] MEDICAL SUMMARY OF HOSPITALIZATION Med Rec No.: [id number] Admission Date: 12/28/96 Name: Kavon Andujar Discharge Date: 01/03/97 STAFF PHYSICIAN: Robert Carlson M.D. Professor, Vascular Surgery PRINCIPAL FINAL DIAGNOSIS: Osteophyte of left jfhhg-qmt-uudu amputation stump. ADDITIONAL DIAGNOSES: Phantom pain. PRINCIPAL PROCEDURE: Revision of left euuvo-zdg-vdfl amputation stump and excision of left stump osteophyte. 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 Since then he has had pain in the stump. On a computed tomography (CT) scan, it was noted that he had a large bone spur and a cyst in his stump site. HOSPITAL COURSE: The patient was admitted on December 28 and underwent revision of his left owdtl-pix-kygf amputation stump with excision of his left [...] Normal. 3. DIET: Normal. Nick Noriega M.D. Matrix Bath Attendant, General Surgery Robert Carlson M.D. Professor, Vascular Surgery DOMINIC/jc A cc: RUBIA KNAPP MD [address] [facility] [address] documented in this encounter Plan of Treatment Not on filedocumented as of this encounter Visit Diagnoses Not on filedocumented in this encounter"
--- OUTSIDE RECORDS SUMMARY | ~2020-09-15 | XMS | Encounter Summary ---
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 | Phone | + +------+ + | Jessenia Bergman PCP | | + +------+ + Reason for Referral Evaluate & Treat (Routine) + + + + + + + | Status | Reason | Specialty | Diagnoses / | Referred By | Referred To | | | | | Procedures | Contact | Contact | + + + + + + + | Pending | Specialty | Otolaryngolog | Diagnoses | Sha | Jameson, | | Review | Services | y | Squamous | MD Edmund | Pam Van DO | | | Required | | cell | [address] | [address] | | | | | carcinoma of | BLVD | [address] | | | | | right | [place], [place] | [place], | | | | | tonsil (HCC) | [address] | [place] [address] | | | | | | Phone: | Phone: | | | | | | [phone] | [phone] | | | | | | Fax: | Fax: | | | | | | [phone] | [phone] | + + + + + + + Evaluate & Treat (Routine) + + + + + + + | Status | Reason | Specialty | Diagnoses / | Referred By | Referred To | | | | | Procedures | Contact | Contact | + + + + + + + | Pending | Specialty | Radiation | Diagnoses | Sha, | Stuart Romo, | | Review | Services | Oncology | Squamous | MD Edmund | [address] | | | Required | | cell | [address] | | | | | | carcinoma of | BLVD | [place], [place] | | | | | right | [place], [place] | [address] | | | | | tonsil ([facility]) | [address] | Phone: | | | | | | Phone: | [phone] | | | | | | [phone] | Fax: | | | | | | Fax: | [phone] | | | | | | [phone] | | + + + + + + + Reason for Visit + + + | Reason | Comments | + + + | Shortness of Breath | chf exacerbation, [facility] Sri negative two days | | | ago | + + + Encounter Details +--------+ + + + + | Date | Type | Department | Care Team | Description | +--------+ + + + + | 08/24/ | Hospital | [facility] | Sheyla Sevilla, | ESRD needing | | 2020 - | Encounter | [facility] | MD [address] | dialysis (HCC) | | | | CARE FLOOR [address] | [place] [address] | (Primary Dx); | | 09/01/ | | [address] | [phone] | Hypervolemia, | | 2019 | | [place], [place] | | unspecified | | | | [address] | Dagoberto Desai, DO [address] | hypervolemia type; | | | | [phone] | [address] | NSTEMI (non-ST | | | | | [place] [address] | elevated myocardial | | | | | [phone] | infarction) ([facility]); | | | | | | Anemia of chronic | | | | | [address] | renal failure, | | | | | MD [address]annie [address] | unspecified CKD | | | | | BLVD [place], [place] | stage; Congestive | | | | | [address] | heart failure, | | | | | | unspecified HF | | | | | Alie Quick MD | chronicity, | | | | | [address] | unspecified heart | | | | | [place] [address] | failure type (HCC); | | | | | [phone] | CKD (chronic kidney | | | | | | disease) stage 5, | | | | | Edmund Dalton MD | GFR less than 15 | | | | | [address] | ml/min (HCC); Acute | | | | | [place] [address] | on chronic systolic | | | | | [phone] | congestive heart | | | | | | failure (HCC); ESRD | | | | | | on hemodialysis | | | | | | (HCC); Anemia in | | | | | [...] | | | | | with hypoxia ([facility]); | | | | | | Hemoptysis; | | | | | | Hypoalbuminemia; | | | | | | Tonsillar mass; | | | | | | Cervical adenopathy; | | | | | | 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 (HCC); Acute | | | | | [...] documented as of this encounter Discharge Summaries Edmund Dalton MD - 09/01/2020 8:45 AM PDT Patient: Porfirio Andujar : 1940 Date of Admission: 08/24/2020 Date of Discharge: 09/01/2020 Treatment Team: Lakeisha Landry MD; Farrukh Acuna MD; Pam Barba DO; Agustina celaya MD Discharging Provider: Edmund Dalton MD Discharge Diagnoses: Principal Problem: Acute respiratory failure with hypoxia Active Problems: Hemoptysis PAOLO (obstructive sleep apnea) COPD (chronic obstructive pulmonary disease) Anemia of chronic kidney failure, stage 5 Diabetes mellitus History of stroke Essential hypertension CKD (chronic kidney disease) stage 5, GFR less than 15 ml/min NSTEMI (non-ST elevated myocardial infarction) Acute exacerbation of CHF (congestive heart failure) Resolved Problems: * No resolved hospital problems. * Procedures Performed: None Chief Complaint: Shortness of Breath (chf exacerbation, [facility]. Covid negative two days ago ) Hospital Course: Mr. Andujar is a 80-year-old male with a history of COPD on home oxygen of up to 3 L at home , tobacco use disorder in remission (10-vsxe-ejpb smoking history, quit 2 weeks ago), type I I DM, HLD, HTN, history of DVT, history of LLE amputation with phantom limb pain, PAOLO on BiP AP, CVA, ESRD on HD, who originally presented to an outside hospital for shortness of breath , found to be in CHF exacerbation, with work-up revealing NSTEMI and transferred here for [facility] level of care. EKG at outside hospital showed possible ST elevations in V2 and V3 and mild reciprocal changes in lead I, cardiology consulted and determined that patient did not meet criteria for STEMI, troponin was elevated to 8.035. Hospital course has been further c omplicated by acute on chronic hemoptysis with work-up ongoing and unfortunately has been de laying his cardiac catheterization as he cannot safely undergo the procedure and potential f or blood thinners thereafter. During hospitalization he has required 2 units of PRBCs for h is hemoptysis. He initially required BiPAP due to respiratory distress however has been abl e to wean off. Problem based hospital course as below. I personally called patients PCPs office and gave r eport to physician covering for PCP. 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 Physical exam revealed tonsillar mass for which ENT was consulted and biopsied on 08/31 which confirmed diagnosis of SqCC of the tonsil. They recommended CT soft tissue [place] however patient will be having their oncology care/follow up in [place] and for thi s reason Oncology, Dr. Martinez recommended all imaging to be done there. Patient was referred to Dr. Stuart Romo radiation/oncologist per Dr. Martinez request which is who he gave verbal repo rt to. Patient did well throughout and had no respiratory issues during hospitalization or o n day of discharge. -follow up with ENT, Dr. Barba in 2 weeks per his request, referral placed -follow up with radiation/oncology, Dr. Romo in [place], referral placed NSTEMI Presented with troponin of 8, EKG not diagnostic of STEMI. Without anginal symptoms. Unfort unately with hemoptysis and new cancer diagnosis above this precluded patient from being abl e to safely undergo cardiac cath and with assistance of cardiology, Dr. Landry, patient wa s treated medically. -ASA, plavix, statin, AUGIE, BB, imdur ESRD on HD -nephrology, Dr. Acuna consulted and assisted with HD throughout hospitalization -resume outpatient HD schedule on discharge -continue torsemide 40 mg daily Acute hypoxemic respiratory failure Initially thought to be multi-factorial including acute systolic CHF exacerbation, COPD exa cerbation, NSTEMI, all of which improved. -O2 prn, discharged on home oxygen requirement of 2L O2 via NC Discharge Exam and Data: Vital Signs: BP 135/56 | Pulse 71 | Temp 36.5 C (97.7 F) (Oral) | Resp 19 | Ht 1.727 m (5' 8") | Wt 80 kg (176 lb 5.9 oz) | SpO2 98% | BMI 26.82 kg/m GEN: elderly male in no apparent distress HEAD: normocephalic EYES: no conjunctival icterus or injection ENT: MMM, clear oropharynx, O2 NC in place NECK: supple, no cervical lymphadenpathy CV: RR at ~70 bpm, normal S1/S2, no murmurs RESP: CTAB without crackles or wheezes ABD: soft, NT/ND, BS+, no obvious masses/organomegaly SKIN: warm and dry, no rashes MSK: normal muscle bulk and tone PSYCH: mood is good, affect congruent NEURO: grossly non-focal Recent Labs BMP 135 99 30* 121* 4.3 28 3.20* CaMgPhos 7.6* 2.1 7.4* LFT 15 60 12 3.3 CBC 9.83 9.7* 249 30.2* Coag 1.1 Last labs from current encounter as of 09/01/20-08:45 PDT Recent Radiology Results Us Renal Limited Result Date: 08/25/2020 1. Cortical thinning and increased echogenicity suggesting medical renal disease. 2. Multip le bilateral renal cysts. Final Report Signed by: Idris Valdez, Thaddeus Sign Date/Time: 7:50 AM Xr Chest Ap Portable Result Date: 08/24/2020 Mixed interstitial and ground-glass opacities seen bilaterally, right greater than left, wi th a right-sided effusion. This may reflect pulmonary edema, though atypical or viral infec tion could appear similar. Final Report Signed by: Idris Gutierrez James Sign Date/Time: 2019 11:[address] Angiogram Pulmonary W Contrast Result Date: 08/29/2020 1. No pulmonary embolism. 2. Mild bilateral [...] mark Sign Date/Time: 08/29/2020 1:54 PM Xr Abd Supine And Upright W 1 Vw Chest Result Date: 08/27/2020 1. Similar appearance of the mixed interstitial and ground-glass opacities of the right gre ater than left lungs and moderate right pleural effusion. 2. Nonobstructive bowel gas patter n. 3. No evidence of pneumoperitoneum. Final Report Signed by: Idris Garcia Elizabeth Sign Date/Time: 08/27/2020 2:02 PM Outstanding Issues: None Discharge Information: Follow up: Jessenia Bergman [address] [place] [address] Schedule an appointment as soon as possible for a visit in 3 days Caio Burt MD [address] [facility] [address] [address] [address] [facility] [address] Schedule an appointment as soon as possible for a visit in 2 weeks call them if they have not called you Farrukh Acuna MD [address] [facility] [address] [place] [address] keep dialysis appointments [facility] [address] [place] [facility] [phone] Go on 09/01/2020 Dialysis every Friday, and Friday at 230pm. First day is 09/01/20 at 130pm for paperwork. Stuart Romo MD [address] [facility] [address] In 2 weeks oncology follow up Pamjaylen Woodberg, DO [address] [facility] [address] [facility] [address] In 2 weeks ENT follow up Current active diet order is: Diet Diet fat and cholesterol modified; sodium restricted 2 gm; 1500 ml fluid; potassium 2 gm; Effective Now Discharge Medications New Medications Details isosorbide mononitrate 30 mg ER tablet Take 1 tablet by mouth Daily. aka: IMDUR Changed Medications Details lisinopril 2.5 MG tablet Take 1 tablet by mouth nightly. What changed: medication strength how much to take how to take this when to take this aka: PRINIVIL,ZESTRIL Unchanged Medications Details albuterol-ipratropium 2.5-0.5 mg/3 mL [...] nebulization 4 (four) times daily. aka: ATROVENT LANTUS SOLOSTAR 100 units/mL injection (pen) Generic drug: insulin glargine Inject 25 Units under the skin nightly. LINZESS 145 mcg capsule Generic drug: linaclotide Magnesium 65 MG Tabs Take 1 tablet [...] TRELEGY ELLIPTA 100-62.5-25 mcg/puff inhaler Generic drug: ttcxybmvofd-tfbvchhjxdyg-stiqcpnoxr inhale 1 puff by mouth once daily albuterol 2.5 mg/3 mL nebulizer solution Take 2.5 mg by nebulization every 6 hours as needed for Wheezing. VENTOLIN HFA 90 mcg/puff inhaler Generic drug: albuterol inhale 2 puffs by mouth every 4 hours if needed for shortness of breath Discontinued Medications amLODIPine 5 mg tablet aka: NOAH Disposition: home Condition: Fair Code Status: Full Code Discharge took greater than 30 minutes, to include final examination, discussion of admissi on, and preparation of prescriptions, instructions for on-going care, follow-up and document ation of discharge summary. Edmund Dalton MD 8:45 AM PDT 09/01/2020 documented in this encounter Discharge Instructions Instructions Nathaniel Garcia RN - 09/01/2020Formatting of this note might be different fr om the original. Hemodialysis Hemodialysis is a type of treatment for kidney failure (end-stage kidney disease or ESRD). It uses a machine that holds a filter called a dialyzer. As blood flows through the dialyze r, waste is removed and fluid and chemicals are balanced. Hemodialysis treatments are usuall y done at a special dialysis center. In some cases, treatments may be done at home. As the k idney failure is getting worse, your doctor may advise you to have an access placed by shannan gilmore into one of your arms ahead of time. This access may take several weeks to mature befor e it can be used for hemodialysis. How hemodialysis is done Two needles are inserted into a blood vessel (called an arteriovenous fistula or AV fistula ) or arteriovenous graft (or AV graft), usually in your arm. Each needle is attached to a tu be. One tube carries your blood into the dialyzer, where it's cleaned. Clean blood returns t o your body through a second tube and needle. If this treatment has to be done as an emergen cy, a plastic tube (catheter) is inserted into a large vein, typically in the neck or groin. This catheter helps carry blood to and from the dialysis machine. Your experience: Problems to watch for Hemodialysis usually takes about 3 to 5 hours. It's usually done 3 times a week. You ll have a regular schedule for your hemodialysis. Many centers have evening and we ekend hours as well as weekday hours to help you continue working. Some centers also offer o vernight treatments. A trained nurse or traffic technician connects you to the dialysis machine. He or she watches fo r problems and makes sure you are comfortable. During treatment, only a small amount of blood (about 1 cup) is out of your body at any one time. During your treatments, you may have a headache, muscle cramps, nausea and vomiting, brad st and back pain, itching, and fever and chills. Make sure you tell your nurse or traffic technician if you have any of these symptoms. Some people are able to learn to use a dialysis at home. Home dialysis lets you schedule treatments when it's most convenient. You may have more frequent treatments, but for shorte r periods of time. You may also do overnight treatments. Get immediate medical help or call your doctor, nurse or public address technician if you have an y of these symptoms after treatment: Chest or back pain Tiredness (fatigue) Bleeding from the needle site Shortness of breath Fever or chills Headache or lightheadedness Nausea or vomiting Itching Muscle cramps Pain, warmth, or redness at your access site Inability to feel your blood flow (called a thrill) in your AV fistula or graft [employer] last reviewed this educational content on 10/01/201919991790-3363 [employer]. [address] [place] [address], [place] [address]. All righ ts reserved. This information is not intended as a substitute for professional medical care. Always follow your healthcare professional's instructions. What is Coronavirus? The Novel Coronavirus 2019 (COVID-19) is a new virus strain that is spread mainly from pers ht-sw-ujufpi through respiratory droplets when an infected person coughs or sneezes. Symptom s may appear 2-14 days after exposure. Reported illnesses have ranged from mild symptoms to severe illness and for confirmed cases. Some people testing positive for COVID-19 have no symptoms at all (asymptomatic). The most common symptoms include: ? Cough ? Shortness of breath or difficulty breathing ? Fever ? Chills ? Muscle pain ? Sore throat ? New loss of taste or smell COVID-19 is most commonly spread from an infected person to others through: ? Between people who are in close contact with one another (within about 6 feet). ? Respiratory droplets produced by coughing and sneezing. These droplets can land in the mo uths or nose of people who are nearby or possibly be inhaled into the lungs. ? Touching a surface with the virus on it and then touching your mouth, nose, or eyes befor e washing your hands. How to protect yourself ? Avoid touching your eyes, nose and mouth with unwashed hands. ? Wash your hands often with soap and water for at least 20 seconds. This is especially imp ortant after blowing your nose, coughing, or sneezing; going to the bathroom; and before eat ing or preparing food. ? If soap and water are not available, use an alcohol-based hand unload associate with at least 60 % alcohol covering all surfaces of your hands and rubbing them together until they feel dry. ? Cover your cough or sneeze with a tissue, then throw the tissue in the trash. (Putting a tissue on a table contaminates the surface of the table with germs.) ? Routinely disinfect frequently touched objects and surfaces, using a cleaning spray or wi pe. ? Avoid travel to high-risk countries. Non-essential travel to or through any of the countr ies for which the CDC has issued a level 2 or 3 travel health notice is discouraged. https://www.cdc.gov/coronavirus/2019-ncov/travelers/index.html ? Stay at least 6 feet away from others when in public places, do not gather in groups, sta y out of crowded places, and avoid mass gatherings to slow the spread of the virus. ? Use of a simple cloth face covering to slow the spread of the virus in public settings wh ere it's hard to stay away from others, such as in grocery stores, pharmacies, and other are as where the virus might easily spread. Cloth masks do not protect the wearer but instead h old in droplets from sneezing or coughing to prevent spreading to other people and surfaces. Cloth face coverings fashioned from household items or made at home from common materials a t low cost can be used. It is not recommended to use surgical masks or N-95 respirators. A few definitions that you should be familiar with regarding COVID-19: Quarantine is used to keep someone who might have been exposed to COVID-19 away from others . Isolation is used to separate people infected with the virus (those who are sick from COVID -19 and those with no symptoms) from people who are not infected. Both quarantine and isolation are similar that they: ? involve separation of people to protect the public ? help limit further spread of COVID-19 ? can be done voluntarily or be required by health authorities What to do if you are sick? ? If you have a fever and cough, you may have COVID-19. Notify your medical provider. ? Stay home except to get medical care (see for Home Isolation) ? Monitor your symptoms When you should seek medical evaluation and advice? ? Call 911 if you have a medical emergency such as trouble breathing, persistent pain or pr essure in the chest, and/or bluish lips or face. If you have a medical emergency and need to call 911, notify the willow machine operator that you have or think you might have, COVID-19. If possible, put on a facemask before medical help arrives. ? If you are 65 and older, or have underlying conditions such as , heart disease, diabetes, lung disease and weakened immune system, work with your doctor to develop a plan t o determine your health risks to COVID-19 and how to manage symptoms. If you do have symptom s, contact your doctor immediately. ? For worsening symptoms or difficulty breathing, please contact your primary care provider or consider a virtual visit. ? If you do not have a high-risk condition and your symptoms are mild, you do not need to b e evaluated in person and do not need to be tested for COVID-19. (Please see Home Quarantin e and Isolation Instructions below) ? We ask that you please avoid coming to the emergency department, unless you have a health emergency and/or you have been advised by a provider to do so. This helps prevent the risk of spreading this disease and further exposure in our community and allows us to dedicate cr itical and limited emergency resources to those who are very sick. Who should be tested? A common question right now is, Why can't I get tested? The answer: Not everyone need s to be tested. Given the short supply of testing supplies and protective equipment for our health care workers, the CDC recommends that people who are hospitalized, healthcare worker who have COVID-19 symptoms, residents in nursing facilities or prison communities or home health, or those who are high risk (older adults, chronic diseases, immunosuppressed) s hould be prioritized for testing. These recommendations may evolve to include more people ov er time, as this situation is evolving rapidly. It is not recommended to test individuals wh o do not have COVID-19 symptoms. What to do if you think you have been exposed to COVID-19? If you feel healthy but recently had close contact with a person known to have COVID-19, yo u need to self-quarantine. Follow the self-quarantine instructions listed below: ? Check your temperature twice a day ? Stay home for 14 days from the time of exposure and self-monitor for fever, cough, and sh ortness of breath. ? Contact your medical provider if your temperature is greater than 100.4 and you develop c ough or shortness of breath. ? If possible, stay away from people who are high-risk for getting very sick from COVID-19. Does this mean my family or other people I live with need to self-quarantine? Other members of the household are not required to self-quarantine, unless they have been t old by a medical professional to do so. If you develop symptoms and are suspected to have CO VID-19, members of the household will be classified as close contacts and will then need to be in self-quarantine. Please speak to your health care provider and/or health department fo r further instructions. What are the guidelines for home quarantine and home isolation? ? Restrict activities outside your home, except for seeking medical care. ? Do not go to work, another person's home, school or public areas. ? Do not use public transportation. ? Cover coughs and sneezes. ? Avoid close contact with household members. When this is not possible, stay at least 6 fe et from other people and wear a cloth face covering. During the COVD-19 pandemic, medical-gr bernadette masks are reserved for healthcare workers. ? Use separate sleeping and bathroom/bathing facilities, if feasible. ? Wash your hands often with soap and water for at least 20 seconds. This is especially imp ortant after blowing your nose, coughing, or sneezing; going to the bathroom; and before eat ing or preparing your food. ? Use hand unload associate if soap and water are not available. Use an alcohol-based hand sanitiz er with at least 60% alcohol, covering all surfaces of your hands and rubbing them together until they feel dry ? Cover your mouth and nose with a tissue when you cough or sneeze. Throw away used tissues in a lined trash can. Wash your hands afterwards. ? Clean and disinfect high-touch surfaces in your sick room and bathroom with a house hold disinfectant. High-touch surfaces include phones, remote controls, counters, doorknobs, tabletops, bathroom fixtures, toilets, keyboards, and bedside tables. Let someone else reginald n and disinfect surfaces in common areas, but not your bedroom and bathroom. ? Avoid sharing personal household items (dishes, drinking glasses, cups, eating utensils, towels, or bedding) with other people or pets in your home. After using these items, they sh ould be washed thoroughly with soap and water or in the lead person/washer. ? Call ahead before visiting your doctor. This will help the healthcare provider's office t erick steps to keep other people from getting infected or exposed. ? If you have been tested for COVID-19, stay home until your healthcare provider contacts y ou about your test results. When should I discontinue self-quarantine? If you have tested positive for COVID-19, you can leave home after these three things have happened: ? At least 3 days (72 hours) have passed since resolution of fever (temperature less than 1 00.0F or 37.8C) without the use of fever-reducing medications (e.g. Tylenol, Ibuprofen) AND ? At least 3 days of improvement in respiratory symptoms (e.g. cough, shortness of breath) AND ? At least 10 days have passed since symptoms first appeared If you have tested positive for COVID-19 and are retested, you can leave home after these t hree things have happened: ? Resolution of fever (temperature less than 100.0F or 37.8C) without the use of fever-redu cing medications (e.g. Tylenol, Ibuprofen) AND ? Improvement in respiratory symptoms (e.g. cough, shortness of breath) AND ? Negative test results of COVID-19 from at least two consecutive samples collected 24 hrs or more apart If you are waiting for COVID-19 test results or you are symptomatic but did not require nikki ting, you can leave home after the following things have happened: ? At least 3 days (72 hours) have passed since resolution of fever (temperature less than 1 00.0F or 37.8C) without the use of fever-reducing medications (e.g. Tylenol, Ibuprofen) and at least 3 days of improvement in respiratory symptoms (e.g., cough, shortness of breath), a nd at least 10 days have passed since symptoms first appeared. OR ? Two negative test results received and at least 24 hours have passed since resolution of fever (temperature less than 100.0F or 37.8C) without the use of fever-reducing medications (e.g. Tylenol, Ibuprofen). How is COVID-19 treated? Most people with COVID-19 will recover on their own. There is no specific antiviral treatm ent recommended for COVID-19 at this time. People with COVID-19 should receive supportive ca re to help relieve symptoms. For severe cases, treatment should include care to support luann l organ functions. Additional Information For up-to-date information about coronavirus and the community public health response, visi t your local public health website. CDC: COVID-19: https://www.cdc.gov/coronavirus/2019-ncov/index.html Institute Coronavirus Advisory: https://www.pecos.org/nxukgdem-lwn-nxmzyobf/coron avirus-advisory Virtual Visits Available https://virtual.[employer]/ . Local Drug Take Back Locations, Pain Management and Opioids: Pain Management, Prescription Opioids: Opioid medications can be addictive and anyone is at risk for developing an opioid use disorder. Keep yourself and others safe by limiting usage , disposing of all unused medications, and knowing how to recognize the signs of opioid use disorder. Be informed of the options available to help manage and treat your pain. Review t he pain management plan of care with your provider. ? What is an Opioid? Opioids are a class of drugs that include pain relievers available leg ally by prescription. Opioid pain relievers can be effective in treatment for relieving pain , however, regular use can lead to dependence, and misuse of opioid pain relievers. ? What are the risks? Opioid use disorder, physical dependence, falls and accidents, increa sed sensitivity to pain and overdose. Talk to your physician before combining medication. ? Safe storage: Never share or sell your opioid medications, keep opioid medications locked or in a safe location, keep out of reach of children and out of sight from others. Leave in the original bottle with the label attached. ? Possible side effects: Nausea, vomiting, and dry mouth, constipation, sleepiness and dizz iness, confusion, respiratory depression, withdrawal. ? Proper disposal: You are not required to use all of your opioid medication. To find your nearest take-back location for proper disposal of unused medications, please visit: http://www.[employer].org/, https://apps.deadiversion.[employer].gov/pubdispsea [facility]/spring/main?execution=e1s3 ? Activities of daily living (ADL) are routine activities people do every day without migel tance. Non-pharmacological interventions can be useful and incorporated to help with activit ies of daily living. These include, but are not limited to: Repositioning, cold/warm иван ses, massage, decreasing environmental stimulation (decrease lighting, decrease noise), musi c, aromatherapy. AUGUST 2018 | [facility] Pub [phone] Location Address Phone # Take Back Hours Accepts Does NOT Accept [facility] [address] [place] [address] [phone] Lobby hours: M-F: 8am-5pm Sat-Sun: See their Facebook page for dates (every few weeks) - Pills: tablets, capsules (in cluding controlled substances) - Liquids - Topical lotions, gels, creams, ointments - Sharps, syringes (including insulin) - [facility] [address] [place] [address] [phone] Lobby hours: M-F: 8am-12pm, 1pm-5pm (closed 12-1pm) Sat-Sun: CLOSED - Pills: tablets, capsules (including controlled substances) - Liquids - Topical lotions, gels, creams, ointments - Sharps, syringes (including insulin) - Inhalers [place] [employer] [address] [place] [address] [phone] Lobby hours: M-F: 8:30am-4:30pm Sat-Sun: CLOSED - Pills: tablets, capsules (including controlled substances) - Patches - Liquids - Topical lotions, gels, creams, ointments - Sharps, syringes (including insulin) - Inhalers [place] [employer] [address] [place], [place] [id number] [phone] Lobby hours: M-F: 8am-5pm Sat-Sun: CLOSED - Pills: tablets, capsules (including controlled substances) - Liquids - Topical lotions, gels, creams, ointments - Sharps, syringes (including insulin) - Inhalers [id number] [address] [place] [address] [phone] Pharmacy hours: M-F: 9am-9pm Sat: 8am-9pm Sun: 9am-9pm - Pills: tablets, capsules (including controlled substances) - Liquids - Topical lotions, gels, creams, ointments - Sharps, syringes (including insulin) - Inhalers [facility] (local branch of [facility]) [address] [place] [address] [phone] Call to schedule orange picking supervisor; only for current residential customers - Sharps, syringes (MUST be inside sharps container) - Drugs: including oral, topical, injectable, inhalers Last updated 03/2020 documented in this encounter Medications at Time [...] [facility]ATED [facility]IN [facility]), Anemia of | | | | | | | chronic kidney | | | | | | | failure, stage 5 | | | | | | | ([facility]), Persistent | | | | | | | proteinuria, CKD | | | | | | | (chronic kidney | | | | | | | disease) stage 5, | | | | | | | GFR less than 15 | | | | | | | ml/min ([facility] tablet by | 1080 | 3 | // | | | 650 mg | mouth [...] LOCATED WITHIN [facility]), Persistent | | | | | | | proteinuria, CKD | | | | | | | (chronic kidney | | | | | | | disease) stage 5, | | | | | | | GFR less than 15 | | | | | | | ml/min ([facility] [...] | | | | | | ml/min ([facility] [...] + +---------+ + + | ARABELLAJuan PabloUS COSTAOSTAR | Inject 25 Units | | 0 [...] + + + +---------+ + + | TRELEGY ELLIPTA | inhale 1 puff by | | 0 | 02/15/20 | | | 100-62.5-25 MCG/INH | mouth once daily | | | 20 | 0 | | inhaler | | | | [...] documented as of this encounter Progress Notes Aj Arauz MD - 09/01/2020 9:31 AM PDTFormatting of this note might be different from t tashia original. Hospital Problem List: Principal Problem: Acute respiratory failure with hypoxia Active Problems: Hemoptysis PAOLO (obstructive sleep apnea) COPD (chronic obstructive pulmonary disease) Anemia of chronic kidney failure, stage 5 Diabetes mellitus History of stroke Essential hypertension CKD (chronic kidney disease) stage 5, GFR less than 15 ml/min NSTEMI (non-ST elevated myocardial infarction) Acute exacerbation of CHF (congestive heart failure) 80 y.o.admitted with resp failure/ ADHF now ESRD started on dialysis during this admission NEPHROLOGY CONSULTED FOR EVALUATION AND MANAGEMENT OF ESRD CHRONIC SEVERE ASSOCIATED WITH FLUID ELECTROLYTE IMBALANCES Assess need for hd/uf Seen and examined Feels ok, appetite fair No cp, sob, N, V, D, fever, h/a, cramps, dizziness Patient's old records and labs were reviewed in detail and summarized. Current Meds: Reviewed aspirin 81 mg Oral Daily atorvaSTATin 80 mg Oral Nightly budesonide-formoterol 2 puff Inhalation RT BID clopidogrel 75 mg Oral Daily epoetin amarjit-epbx 10,000 Units Subcutaneous Weekly heparin 1,500-6,000 Units Intracatheter After each dialysis insulin glargine 13 Units Subcutaneous Nightly insulin lispro 0-6 Units Subcutaneous 4x Daily WC and HS isosorbide mononitrate 30 mg Oral Daily lisinopril 2.5 mg Oral Nightly polyethylene glycol 17 g Oral Daily torsemide 40 mg Oral Daily dextrose 10% P.E. Vs: Reviewed BP 135/56 | Pulse 71 | Temp 36.5 C (97.7 F) (Oral) | Resp 19 | Ht 1.727 m (5' 8") | Wt 80 kg (176 lb 5.9 oz) | SpO2 98% | BMI 26.82 kg/m General appearance: P.lyi Lungs: Good a/e b/l, no respiratory distress. Heart: s1 s2 no rub Abdominal exam: Soft and nontender with normal bowel sounds. Extremities: Warm to touch with trace leg edema. There is no cyanosis. Neurological: Awake, alert, and oriented to time, place, and person. Normal gross motor po wer, no asterixis Access: R AVF +ve thrill/ bruit Recent Labs 08/31/20 0432 08/30/20 0401 BUN 30* 42* CREA 3.20* 3.61* EGFR 19* 16* NA 135 137 K 4.3 4.3 CL 99 103 CO2 28 26 CALCIUM 7.6* 7.7* HGB 9.7* 9.6* HCT 30.2* 31.0* I/O last 3 completed shifts: In: 345 [P.O.:345] Out: 600 [Urine:600] I/O this shift: In: 180 [P.O.:180] Out: - Assessment: Mr. Andujar is a 80 y.o. male patient with ESRD on HD now High risk for electrolytes imbalance hypoNa Controlled Met acidosis improving hyperPhos Controlled hypoAlb Anemia in ESRD stable Recommendations: Plan for hd/uf today D/w patient already scheduled for hd at [facility], or at 1:30 pm, will go there and get hd as outpatient UF: as tolerated. WALESKA to keep hgb 10-11 Renal diet restrictions stressed Increase protein intake Low p diet Low na diet Care taken over from Dr Acuna CASE DISCUSSED IN DETAIL WITH PATIENT/ care team, ANSWERS ALL QUESTIONS IN DETAIL, VERBALIZ ES UNDERSTANDING Aj Arauz MD Lakeisha Gandhi MD - 09/01/2020 6:48 AM PDT [facility] Service: Cardiology Progress Note Name of Beauty Sales Consultant: Lakeisha Landry MD I have seen the patient on 09/01/2020, continues to have hemoptysis, diagnosed with tonsilla r mass that was turned to be squamous cell carcinoma . Received 2 units of PRBC. SUBJECTIVE Current Facility-Administered Medications: acetaminophen (TYLENOL) tablet 650 mg, 650 mg, Oral, Q4H PRN, Dagoberto Lloyd, DO, 650 mg a t 08/26/20 0129 albuterol 90 mcg/puff inhaler 2 puff, 2 puff, Inhalation, RT Q4H PRN, Dagoberto Lloyd, DO aspirin chewable tablet 81 mg, 81 mg, Oral, Daily, Dagoberto Lloyd, DO, 81 mg at 08/31/20 1 000 atorvaSTATin (LIPITOR) tablet 80 mg, 80 mg, Oral, Nightly, Dagoberto Lloyd, DO, 80 mg at 212 budesonide-formoterol (SYMBICORT) 160-4.5 mcg/puff inhaler 2 puff, 2 puff, Inhalation, RT BID, Dagoberto Lloyd, DO, 2 puff at 08/31/20 212 clopidogrel (PLAVIX) tablet 75 mg, 75 mg, Oral, Daily, Dagoberto Lloyd, DO, 75 mg at 1000 Hypoglycemia Management, , , Until Discontinued AND POCT Glucose, , , PRN AND dextrose 50% injection 12.5-25 g, 12.5-25 g, Intravenous, PRN, 12.5 g at 08/28/20 0835 AND dextrose 10% (D10W) infusion, , Intravenous, Continuous PRN, Dagoberto Lloyd, DO docusate sodium (COLACE) capsule 100 mg, 100 mg, Oral, BID PRN, Dagoberto Lloyd, DO epoetin amarjit-epbx (RETACRIT) 10,000 units/mL injection 10,000 Units, 10,000 Units, Sub cutaneous, Weekly, Farrukh Acuna MD, 10,000 Units at 08/27/20 1539 heparin 1,000 units/mL injection 1,500-6,000 Units, 1,500-6,000 Units, Intracatheter, After each dialysis, Farrukh Acuna MD insulin glargine (LANTUS SOLOSTAR) injection (pen) 13 Units, 13 Units, Subcutaneous, N elizabethtly, Justin Quick MD, 13 Units at 08/31/206 insulin lispro (humaLOG, ADMELOG) injection (vial) 0-6 Units, 0-6 Units, Subcutaneous, 4x Daily WC and HS, [facility] DO, 1 Units at 08/31/202125 isosorbide mononitrate (IMDUR) ER tablet 30 mg, 30 mg, Oral, Daily, Seven hidalgo MD, 30 mg at 08/31/20 1000 lidocaine (PF) 1% injection 0.5 mL, 0.5 mL, Intradermal, Dialysis - PRN, Farrukh Acuna MD, 0.5 mL at 08/26/20 1225 lidocaine 1% injection 0.5 mL, 0.5 mL, Intradermal, Dialysis - PRN, Seven hidalgo MD, 0.5 mL at 08/30/20 0850 lisinopril (PRINIVIL, ZESTRIL) tablet 2.5 mg, 2.5 mg, Oral, Nightly, Farrukh Acuna MD, 2.5 mg at 08/31/20 2120 nitroglycerin (NITROSTAT) SL tablet 0.4 mg, 0.4 mg, Sublingual, Q5 Min PRN, [facility], 0.4 mg at 08/29/20 2125 ondansetron (ZOFRAN) injection 4-8 mg, 4-8 mg, Intravenous, Q6H PRN, [facility], 4 mg at 08/30/20 1423 oxyCODONE (ROXICODONE) tablet 15 mg, 15 mg, Oral, Q4H PRN, [facility], 15 mg at 2213 polyethylene glycol (MIRALAX) powder 17 g, 17 g, Oral, Daily, [facility] DO, 17 g at 08/31/20 1000 promethazine (PHENERGAN) (IV ONLY) injection 6.25 mg, 6.25 mg, Intravenous, Q6H PRN, D shawn Shaw MD, 6.25 mg at 08/27/20 1257 sodium chloride 0.9% (NS) bolus 100 mL, 100 mL, Intravenous, Dialysis - PRN, Farrukh richey MD sodium chloride 0.9% (NS) bolus 100 mL, 100 mL, Intravenous, Dialysis - PRN, Farurkh richey MD torsemide (DEMADEX) tablet 40 mg, 40 mg, Oral, Daily, Farrukh Acuna MD, 40 mg at 08/31 1000 OBJECTIVE Vital Signs: BP 107/64 | Pulse 69 | Temp 36.7 C (98.1 F) (Oral) | Resp 18 | Ht 1.727 m (5' 8") | Wt 80 kg (176 lb 5.9 oz) | SpO2 95% | BMI 26.82 kg/m Intake/Output Summary (Last 24 hours) at 09/01/2020 0648 Last data filed at 09/01/2020 0200 Gross per 24 hour Intake 225 ml Output 500 ml Net -275 ml Cardiovascular: Regular rhythm, S1 normal and S2 normal. Pulmonary/Chest: Effort normal and breath sounds normal. Abdominal: Soft. No tenderness. Musculoskeletal: left BKA. Neurological: Alert. No cranial nerve deficit. Skin: Warm and dry. DATA Recent Labs Lab 08/31/20 0432 08/30/20 0401 08/28/20 0937 08/26/20 0520 NA 135 137 138 137 K 4.3 4.3 3.8 4.1 CO2 28 26 30 29 BUN 30* 42* 36* 60* CREA 3.20* 3.61* 2.64* 4.10* EGFR 19* 16* 23* 14* CALCIUM 7.6* 7.7* 7.3* 8.1* MG -- -- -- 2.1 Recent Labs Lab 08/31/20 0432 08/30/20 0401 08/28/20 0937 WBC 9.83 10.87 9.19 HGB 9.7* 9.6* 9.6* HCT 30.2* 31.0* 29.4* MCV 90.1 93.1 90.5 PLT 249 251 261 Recent Labs Lab 08/26/20 0520 08/25/20 1944 08/25/20 1557 08/25/20 1157 CKMB -- 6.7* 7.5* 8.0* INR 1.1 -- -- -- Lab Results Component Value Date CHOL 119 08/25/2020 CHOL 117 07/14/2018 TRIG 67 08/25/2020 LDL 64 08/25/2020 HDL 42 08/25/2020 GLUF 250 (A) 05/29/2020 EK08/25/2020 Reviewed showed normal sinus rhythm, intraventricular delay, anterolateral T wave inversion s. Last Echo: 08/25/2020 Technically difficult study with poor acoustic windows. Left ventricle appears mildly dilated with moderately impaired systolic function EF 35 to 4 0%. Akinetic anterior, anteroseptal, septal, inferoseptal, and apical segments. Right ventricle appears moderately dilated with impaired systolic function. No pericardial effusion Last stress test: Last cath: Carotid US: AAA screening: Lower extremity US: OTHERS: ASSESSMENT & PLAN Patient is 80 y.o. with 1. Non-ST elevation OR continues to deny any anginal symptoms. 2. Acute decompensated congestive heart failure. 3. Ongoing hemoptysis. 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 5. Ischemic cardiomyopathy. NYH class III, stage C. 6. Stage V kidney disease requiring urgent hemodialysis. 7. Bedbound and chair bound. 8. Type 2 diabetes mellitus. 9. History of cerebrovascular accident. 10. Chronic obstructive pulmonary disease. 11. Normocytic anemia possibly of chronic disease. Recommendations: Diagnosed with squamous cell carcinoma. We will follow-up with oncology. Not a candidate for invasive cardiac evaluation. Continues with hemoptysis and received a 2 units of PRBC. Continues to be poor candidate for invasive evaluation. Blood pressure is low to add any medical guided therapy for cardiomyopathy. Will continue with hemodialysis. Pain management. We will continue to follow-up with nephrology. At this time cardiology will sign off. Medical management by the hospitalist team. Code Status: Full Code Lakeisha Landry MD 09/01/2020 Edmund Linares MD - 08/31/2020 4:16 PM PDT [facility] Service: Hospitalist Progress Note Pt: Porfirio Andujar AGE/SEX: 80 y.o. male ROOM: 4439/4439-01 : 1940 PCP: Jessenia Bergman ADMIT DATE: 08/24/2020 TODAY'S DATE: 08/31/2020 Hospital Day/Hospital Course: LOS: 6 days Mr. Andujar is a 80-year-old male with a history of COPD on home oxygen of up to 3 L at home , tobacco use disorder in remission ([id number]-hcie-[id number] smoking history, quit 2 weeks ago), type I I DM, HLD, HTN, history of DVT, history of LLE amputation with phantom limb pain, PAOLO on BiP AP, CVA, ESRD on HD, who originally presented to an outside hospital for shortness of breath , found to be in CHF exacerbation, with work-up revealing NSTEMI and transferred here for [facility] level of care. EKG at outside hospital showed possible ST elevations in V2 and V3 and mild reciprocal changes in lead I, cardiology consulted and determined that patient did not meet criteria for STEMI, troponin was elevated to 8.035. Hospital course has been further c omplicated by acute on chronic hemoptysis with work-up ongoing and unfortunately has been de laying his cardiac catheterization as he cannot safely undergo the procedure and potential f or blood thinners thereafter. During hospitalization he has required 2 units of PRBCs for h is hemoptysis. He initially required BiPAP due to respiratory distress however has been abl e to wean off. SUBJECTIVE: Patient feels well although he is appropriately upset at the new diagnosis of cancer. He r emains on 2 L of O2 via nasal cannula. He denies any chest pain, dyspnea, abdominal pain. Scheduled Medications: aspirin 81 mg Oral Daily atorvaSTATin 80 mg Oral Nightly budesonide-formoterol 2 puff Inhalation RT BID clopidogrel 75 mg Oral Daily epoetin amarjit-epbx 10,000 Units Subcutaneous Weekly heparin 1,500-6,000 Units Intracatheter After each dialysis insulin glargine 13 Units Subcutaneous Nightly insulin lispro 0-6 Units Subcutaneous 4x Daily WC and HS isosorbide mononitrate 30 mg Oral Daily lisinopril 2.5 mg Oral Nightly polyethylene glycol 17 g Oral Daily torsemide 40 mg Oral Daily Continuous Infusions dextrose 10% PRN Medications acetaminophen, albuterol, Hypoglycemia Management AND POCT Glucose AND dextrose A ND dextrose 10%, docusate sodium, lidocaine (PF), lidocaine, nitroglycerin, ondansetron, o xyCODONE, promethazine, sodium chloride 0.9%, sodium chloride 0.9% Allergy: Allergies Allergen Reactions Trazodone Hallucination OBJECTIVE: Vitals: BP 101/52 | Pulse 66 | Temp 36.8 C (98.2 F) (Oral) | Resp 18 | Ht 1.727 m (5' 8") | Wt 77.9 kg (171 lb 11.8 oz) | SpO2 94% | BMI 26.11 kg/m I&O Detailed Table: Intake/Output Summary (Last 24 hours) at 08/31/2020 1616 Last data filed at 08/31/2020 1000 Gross per 24 hour Intake 120 ml Output 200 ml Net -80 ml Patient Vitals for the past 96 hrs: Weight 08/31/20 0359 77.9 kg (171 lb 11.8 oz) 08/30/20 0327 79.8 kg (176 lb) 08/29/20 0411 79.5 kg (175 lb 3.2 oz) 08/28/20 1255 79.3 kg (174 lb 13.2 oz) 08/28/20 1249 79.3 kg (174 lb 13.2 oz) 08/28/20 0909 81.3 kg (179 lb 3.7 oz) 08/28/20 0341 80.9 kg (178 lb 4.8 oz) Physical Examination: GEN: elderly male in no apparent distress HEAD: normocephalic EYES: no conjunctival icterus or injection ENT: MMM, clear oropharynx, O2 NC in place NECK: supple, no cervical lymphadenpathy CV: RR at ~70 bpm, normal S1/S2, no murmurs RESP: CTAB without crackles or wheezes ABD: soft, NT/ND, BS+, no obvious masses/organomegaly SKIN: warm and dry, no rashes MSK: normal muscle bulk and tone PSYCH: mood is good, affect congruent NEURO: grossly non-focal LABS: BMP 135 99 30* 121* 4.3 28 3.20* CaMgPhos 7.6* 2.1 7.4* LFT 15 60 12 3.3 CBC 9.83 9.7* 249 30.2* Coag 1.1 Last labs from current encounter as of 08/31/20-16:16 PDT Recent Labs Lab 08/26/20 0520 08/24/20 2302 INR 1.1 1.2 IMAGING: Reviewed in [facility], no new results. PROBLEM LIST Principal Problem: Acute respiratory failure with hypoxia Active Problems: Hemoptysis PAOLO (obstructive sleep apnea) COPD (chronic obstructive pulmonary disease) Anemia of chronic kidney failure, stage 5 Diabetes mellitus History of stroke Essential hypertension CKD (chronic kidney disease) stage 5, GFR less than 15 ml/min NSTEMI (non-ST elevated myocardial infarction) Acute exacerbation of CHF (congestive heart failure) Resolved Problems: * No resolved hospital problems. * ASSESSMENT & PLAN Squamous cell carcinoma of the right tonsil -no respiratory issues -ENT, Dr. Barba consulted, s/p biopsy 08/31 confirming diagnosis -oncology, Dr. Martinez consulted, imaging recs per him NSTEMI -presented with troponin of 8, EKG not diagnostic of STEMI -without anginal symptoms -cardiology, Dr. Landry consulted -continue ASA, plavix, statin, AUGIE, BB, imdur -unfortunately will not be able to undergo cardiac cath due to above, bleeding risk too hig h ESRD on HD -nephrology, Dr. Acuna following, HD per him -continue torsemide 40 mg daily Acute hypoxemic respiratory failure Initially thought to be multi-factorial including acute systolic CHF exacerbation, COPD exa cerbation, NSTEMI, all of which improved. -O2 prn, currently on 2L O2 via NC, this is home oxygen requirement TII DM: continue lantus nightly and SSI History of CVA: stable, continue ASA, statin HTN, essential: normotensive, continue AUGIE, BB PAOLO: stable, continue bipap COPD: acute exacerbation on admit, now back to normal baseline and home O2 requirement Anemia, normocytic: suspected to be due to kidney disease, monitor PPx: full dose AC as above Code status: Full Contacts: Charlotte Andujar, daughter, , called and updated 08/31 Dispo: imaging tonight, chair time set up for HD tomorrow and anticipate dc tomorrow Edmund Dalton MD 4:16 PM PDT 08/31/2020 Portions of this chart may have been copied from previous notes for continuity of care purp ose koumFarrukh MD - 1 1:30 PM PDT Hospital Problem List: Principal Problem: Acute respiratory failure with hypoxia Active Problems: Hemoptysis PAOLO (obstructive sleep apnea) COPD (chronic obstructive pulmonary disease) Anemia of chronic kidney failure, stage 5 Diabetes mellitus History of stroke Essential hypertension CKD (chronic kidney disease) stage 5, GFR less than 15 ml/min NSTEMI (non-ST elevated myocardial infarction) Acute exacerbation of CHF (congestive heart failure) The patient says that he feels 'better' today. He denies any dizziness, cp, sob, abd pain, n/v. Hemoptysis continues. His urine output is low. The following portions of the patient's history were reviewed and updated as appropriate: l aboratory data, radiologic studies, allergies, current medications, and problem list. Inpatient Meds: aspirin 81 mg Oral Daily atorvaSTATin 80 mg Oral Nightly budesonide-formoterol 2 puff Inhalation RT BID clopidogrel 75 mg Oral Daily epoetin amarjit-epbx 10,000 Units Subcutaneous Weekly heparin 1,500-6,000 Units Intracatheter After each dialysis insulin glargine 13 Units Subcutaneous Nightly insulin lispro 0-6 Units Subcutaneous 4x Daily WC and HS isosorbide mononitrate 30 mg Oral Daily lisinopril 2.5 mg Oral Nightly polyethylene glycol 17 g Oral Daily torsemide 40 mg Oral Daily dextrose 10% P.E. BP 101/52 | Pulse 66 | Temp 36.8 C (98.2 F) (Oral) | Resp 18 | Ht 1.727 m (5' 8") | Wt 77.9 kg (171 lb 11.8 oz) | SpO2 94% | BMI 26.11 kg/m General appearance: Pleasant, not in acute distress. Lungs: Good A/E to auscultation bilaterally. There are no wheezes. Heart: Regular rate and rhythm without any rub, gallop. Soft systolic murmurat the LSB. Abdominal exam: Soft and nontender with normal bowel sounds. Extremities: Warm to touch with trace right leg edema. There is no cyanosis or clubbing. Neurological: Awake, alert, and oriented to time, place, and person. Normal gross motor po wer. There is no asterixis. Access: good thrill in AVF. Recent Labs 08/31/20 0432 08/30/20 0401 BUN 30* 42* CREA 3.20* 3.61* EGFR 19* 16* NA 135 137 K 4.3 4.3 CL 99 103 CO2 28 26 CALCIUM 7.6* 7.7* HGB 9.7* 9.6* HCT 30.2* 31.0* I/O last 3 completed shifts: In: 120 [P.O.:120] Out: 2625 [Urine:625] I/O this shift: In: - Out: 100 [Urine:100] Assessment: Mr. Andujar is a 80 y.o. male patient with ESRD on HD now. First session on 08/25/20. Acute hypoxic resp failure, improved ADHF, improved Peripheral edema, improved STEMI Hemoptysis High risk for electrolytes imbalance hypoNa Met acidosis hyperPhos hypoAlb Anemia in ESRD -He was admitted with "NSTEMI (non-ST elevated myocardial infarction) (HCC) [I21.4] ESRD needing dialysis (HCC) [N18.6, Z99.2] Hypervolemia, unspecified hypervolemia type [E87.70] Anemia of chronic renal failure, unspecified CKD stage [N18.9, D63.1] Congestive heart failure, unspecified HF chronicity, unspecified heart failure type (HCC) [ I50.9] -He presented with "Shortness of Breath (chf exacerbation, [facility] ative two days ago ) Recommendations: There is no acute FEE CLERK indication Plan it for MWF, Heparin-free again No IVF need Vasoactive meds as ordered PO torsemide 40 a day Monitor BP closely & frequently Reinforce lytes protocol Strict low sodium in the diet stressed Protein supplement stressed Strict I/O & daily weights. Dose all of meds to his intermittent HD + the severely low eGFR, as he still has some RKF. Continue to avoid all kinds of nephrotoxins. Target euvolumia with a MAP>75 mmHg as possible. I discussed with the primary team the case after the time of this encounter. Farrukh Acuna MD Pam Sanchez DO - 08/31/2020 7:01 AM PDT [facility] Service: Otolaryngology (ENT) Progress Note Hospital Day: LOS: 6 days Post-Op Day: * No surgery found * SUBJECTIVE Patient Summary: The patient is80 y.o.malewith significant past medical history of Hypertension, PVD, COPD, PAOLO, Diabetes type II, history of CVA, extensive tobacco use, E SRD on HDwho presented to [facility] secondary to shortness of breath and CHF exacerbation who w as found to have NSTEMI. Hospital course complication by acute on chronic hemoptysis. Cardia c catheterization has been delayed due to the hemoptysis. Patient notes that he has had the hemoptysis for the past two months. He denies unintentional weight loss, fevers, chills, or night sweats. He does note right throat pain. No dysphagia or hoarseness. The patient is on chronic anticoagulation. CTA of the chest was unremarkable for pulmonary etiology regarding the hemoptysis. No nasal bleeding or epistaxis. He admits that he quit smoking 3 weeks ago ( 60 pack year history). ENT consulted for evaluation of the hemoptysis. Patient seen and examined at bedside. Continues to have intermittent hemoptysis. He is pr epared for biopsy today. Events Overnight: None Scheduled Medications aspirin 81 mg Oral Daily atorvaSTATin 80 mg Oral Nightly budesonide-formoterol 2 puff Inhalation RT BID clopidogrel 75 mg Oral Daily epoetin amarjit-epbx 10,000 Units Subcutaneous Weekly heparin 1,500-6,000 Units Intracatheter After each dialysis insulin glargine 13 Units Subcutaneous Nightly insulin lispro 0-6 Units Subcutaneous 4x Daily WC and HS isosorbide mononitrate 30 mg Oral Daily lisinopril 2.5 mg Oral Nightly polyethylene glycol 17 g Oral Daily torsemide 40 mg Oral Daily Continuous Infusions dextrose 10% PRN Medications acetaminophen, albuterol, Hypoglycemia Management AND POCT Glucose AND dextrose A ND dextrose 10%, docusate sodium, lidocaine (PF), lidocaine, nitroglycerin, ondansetron, o xyCODONE, promethazine, sodium chloride 0.9%, sodium chloride 0.9% OBJECTIVE Vital Signs: Vitals: 08/31/20 0359 BP: 114/57 Pulse: 82 Resp: 18 Temp: 36.7 C (98 F) Physical Exam Appearance: Normal appearance. HENT: Head: Normocephalicand atraumatic. Right Ear: Tympanic membraneand external earnormal. Left Ear: Tympanic membraneand external earnormal. Nose: Nose normal. Mouth/Throat: Mouth: Mucous membranes are moist. Comments: Exophytic mass of the right tonsil with extensive ulceration. Eyes: Extraocular Movements: Extraocular movements intact. Pupils: Pupils are equal, round, and reactive to light. Neck: Musculoskeletal: Normal range of motionand neck supple. Comments: Right cervical adenopathy noted. Enlarged lymph node level III Pulmonary: Effort: Pulmonary effort is normal. Lymphadenopathy: Cervical: Cervical adenopathypresent. Neurological: Mental Status: He is alert. PROCEDURE NOTE Preprocedure diagnosis: Right tonsil mass Postprocedure diagnosis: Same Anesthesia: 1% lidocaine with epinephrine 1:100,000 Procedure: Biopsy right tonsil mass Under a separate and identifiable procedure, biopsy of right tonsil mass was performed. Ve rbal consent obtained. Timeout performed. The correct patient, correct procedure, correct site, and correct side were identified. The risks, benefits, alternatives, and complication s associated with the procedure were discussed with the patient. Topical benzocaine spray w as applied to the right tonsil. The area was then injected with 1% lidocaine with epinephri ne. After the medication to affect, cup forcep was utilized to take several biopsies. The p atient tolerated this well. This was sent for frozen section. DATA Recent Results (from the past 24 hour(s)) POC Glucose Collection Time: 08/30/20 7:25 AM Result Value Ref Range Glucose, POC 105 (H) 65 - 99 mg/dL POC Glucose Collection Time: 08/30/20 11:27 AM Result Value Ref Range Glucose, POC 88 65 - 99 mg/dL POC Glucose Collection Time: 08/30/20 9:02 PM Result Value Ref Range Glucose, POC 138 (H) 65 - 99 mg/dL POC Glucose Collection Time: 08/30/20 11:22 PM Result Value Ref Range Glucose, POC 262 (H) 65 - 99 mg/dL CBC no Differential Collection Time: 08/31/20 4:32 AM Result Value Ref Range WBC 9.83 3.80 - 11.00 K/uL Red Blood Cells 3.35 (L) 4.20 - 5.70 M/uL Hemoglobin 9.7 (L) 13.2 - 17.0 g/dL Hematocrit 30.2 (L) 39.0 - 50.0 % MCV 90.1 80.0 - 100.0 fl MCH 29.0 27.0 - 34.0 pg MCHC 32.1 32.0 - 35.5 g/dL RDW-SD 47.8 37 - 53 fl Platelet Count 249 150 - 400 K/uL MPV 10.8 fl Basic Metabolic Panel Collection Time: 08/31/20 4:32 AM Result Value Ref Range Na 135 135 - 145 mmol/L K 4.3 3.5 - 4.9 mmol/L Cl 99 99 - 109 mmol/L CO2 28 23 - 32 mmol/L Anion Gap 12 5 - 20 mmol/L Glucose 121 (H) 65 - 99 mg/dL BUN 30 (H) 8 - 25 mg/dL Creatinine 3.20 (H) 0.70 - 1.30 mg/dL BUN/Creatinine Ratio 9 Calcium 7.6 (L) 8.5 - 10.5 mg/dL Estimated GFR 19 (L) >60 mL/min/1.73m2 POC Glucose Collection Time: 08/31/20 6:10 AM Result Value Ref Range Glucose, POC 122 (H) 65 - 99 mg/dL PROBLEM LIST Principal Problem: Acute respiratory failure with hypoxia Active Problems: Hemoptysis PAOLO (obstructive sleep apnea) COPD (chronic obstructive pulmonary disease) Anemia of chronic kidney failure, stage 5 Diabetes mellitus History of stroke Essential hypertension CKD (chronic kidney disease) stage 5, GFR less than 15 ml/min NSTEMI (non-ST elevated myocardial infarction) Acute exacerbation of CHF (congestive heart failure) ASSESSMENT & PLAN Hemoptysis, right tonsil squamous cell carcinoma, right cervical adenopathy; 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 I have recommended P 16 staining for the biopsy specimen. -Recommend oncology evaluation; await evaluation by Dr. Martinez -Recommend CT soft tissue neck with contrast for complete evaluation. -Patient will need a PET scan as an outpatient -Patient to follow up with me in clinic as an outpatient 2 weeks -Please call with questions Disposition: Per primary team Code Status: Full Code Pam Barba DO 08/31/2020 Ilsa Christie, FEE CLERK - 08/30/2020 7:11 PM PDTRT spoke to patient regarding when he would like to go on the V60 BiPAP. Patient stated that he did not want to wear the mask or use the machine.El ectronically signed by Libertad Carroll, FEE CLERK at 08/30/2020 7:17 PM Pam Sanchez, DO - 08/30/2020 1:38 PM PDT [facility] Service: Otolaryngology (ENT) Progress Note Hospital Day: LOS: 5 days Post-Op Day: * No surgery found * SUBJECTIVE Patient Summary: The patient is 80 y.o. male with significant past medical history of Hypertension, PVD, COPD, PAOLO, Diabetes type II, history of CVA, extensive tobacco use, ESRD on HD who presented to [facility] secondary to shortness of breath and CHF exacerbation who was f ound to have NSTEMI. Hospital course complication by acute on chronic hemoptysis. Cardiac ca theterization has been delayed due to the hemoptysis. Patient notes that he has had the hemo ptysis for the past two months. He denies unintentional weight loss, fevers, chills, or nigh t sweats. He does note right throat pain. No dysphagia or hoarseness. The patient is on preboarder jimmy anticoagulation. CTA of the chest was unremarkable for pulmonary etiology regarding the hemoptysis. No nasal bleeding or epistaxis. He admits that he quit smoking 3 weeks ago (60 p ack year history). ENT consulted for evaluation of the hemoptysis. Patient continues to have intermittent hemoptysis. He just finished dialysis and is not in terested in biopsy today. Continues to have right-sided throat discomfort. No significant dysphagia. No other concerns or complaints. Events Overnight: No acute issues overnight. Scheduled Medications aspirin 81 mg Oral Daily atorvaSTATin 80 mg Oral Nightly budesonide-formoterol 2 puff Inhalation RT BID clopidogrel 75 mg Oral Daily epoetin amarjit-epbx 10,000 Units Subcutaneous Weekly heparin 1,500-6,000 Units Intracatheter After each dialysis insulin glargine 13 Units Subcutaneous Nightly insulin lispro 0-6 Units Subcutaneous 4x Daily WC and HS isosorbide mononitrate 30 mg Oral Daily lisinopril 2.5 mg Oral Nightly polyethylene glycol 17 g Oral Daily torsemide 40 mg Oral Daily Continuous Infusions dextrose 10% PRN Medications acetaminophen, albuterol, Hypoglycemia Management AND POCT Glucose AND dextrose A ND dextrose 10%, docusate sodium, lidocaine (PF), lidocaine, nitroglycerin, ondansetron, o xyCODONE, promethazine, sodium chloride 0.9%, sodium chloride 0.9% OBJECTIVE Vital Signs: Vitals: 08/30/20 1215 BP: 98/54 Pulse: 79 Resp: Temp: Physical Exam Vitals signs reviewed. Constitutional: Appearance: Normal appearance. HENT: Head: Normocephalic and atraumatic. Right Ear: Tympanic membrane and external ear normal. Left Ear: Tympanic membrane and external ear normal. Nose: Nose normal. Mouth/Throat: Mouth: Mucous membranes are moist. Comments: Exophytic mass of the right tonsil with extensive ulceration. Eyes: Extraocular Movements: Extraocular movements intact. Pupils: Pupils are equal, round, and reactive to light. Neck: Musculoskeletal: Normal range of motion and neck supple. Comments: Right cervical adenopathy noted. Enlarged lymph node level III Pulmonary: Effort: Pulmonary effort is normal. Lymphadenopathy: Cervical: Cervical adenopathy present. Neurological: Mental Status: He is alert. DATA Recent Results (from the past 24 hour(s)) POC Glucose Collection Time: 08/29/20 5:03 PM Result Value Ref Range Glucose, POC 134 (H) 65 - 99 mg/dL POC Glucose Collection Time: 08/29/20 8:37 PM Result Value Ref Range Glucose, POC 225 (H) 65 - 99 mg/dL Troponin I Collection Time: 08/29/20 9:42 PM Result Value Ref Range Troponin I 1.886 (HH) 0.00 - 0.04 ng/mL ECG 12 lead Collection Time: 08/29/20 9:42 PM Result Value Ref Range VENTRICULAR RATE EKG 79 BPM ATRIAL RATE 79 BPM P-R INTERVAL 182 ms QRS DURATION 100 ms Q-T INTERVAL 442 ms Q-T INTERVAL (CORRECTED) 506 ms P WAVE AXIS 47 degrees QRS AXIS 49 degrees T AXIS -174 degrees INTERPRETATION TEXT Sinus rhythm with Premature atrial complexes Anterior infarct , age undetermined ST & T wave abnormality, consider lateral ischemia Prolonged QT Abnormal ECG When compared with ECG of 25-AUG-2020 05:57, Premature atrial complexes are now Present Incomplete left bundle branch block is no longer Present Confirmed by HANNY BARRETO ([id number]) on 08/30/2020 8:21:55 AM POC Glucose Collection Time: 08/30/20 2:40 AM Result Value Ref Range Glucose, POC 75 65 - 99 mg/dL CBC no Differential Collection Time: 08/30/20 4:01 AM Result Value Ref Range WBC 10.87 3.80 - 11.00 K/uL Red Blood Cells 3.33 (L) 4.20 - 5.70 M/uL Hemoglobin 9.6 (L) 13.2 - 17.0 g/dL Hematocrit 31.0 (L) 39.0 - 50.0 % MCV 93.1 80.0 - 100.0 fl MCH 28.8 27.0 - 34.0 pg MCHC 31.0 (L) 32.0 - 35.5 g/dL RDW-SD 50.4 37 - 53 fl Platelet Count 251 150 - 400 K/uL MPV 10.4 fl Basic Metabolic Panel Collection Time: 08/30/20 4:01 AM Result Value Ref Range Na 137 135 - 145 mmol/L K 4.3 3.5 - 4.9 mmol/L Cl 103 99 - 109 mmol/L CO2 26 23 - 32 mmol/L Anion Gap 12 5 - 20 mmol/L Glucose 79 65 - 99 mg/dL BUN 42 (H) 8 - 25 mg/dL Creatinine 3.61 (H) 0.70 - 1.30 mg/dL BUN/Creatinine Ratio 12 Calcium 7.7 (L) 8.5 - 10.5 mg/dL Estimated GFR 16 (L) >60 mL/min/1.73m2 POC Glucose Collection Time: 08/30/20 4:48 AM Result Value Ref Range Glucose, POC 79 65 - 99 mg/dL POC Glucose Collection Time: 08/30/20 7:25 AM Result Value Ref Range Glucose, POC 105 (H) 65 - 99 mg/dL POC Glucose Collection Time: 08/30/20 11:27 AM Result Value Ref Range Glucose, POC 88 65 - 99 mg/dL PROBLEM LIST Principal Problem: Acute respiratory failure with hypoxia Active Problems: Hemoptysis PAOLO (obstructive sleep apnea) COPD (chronic obstructive pulmonary disease) Anemia of chronic kidney failure, stage 5 Diabetes mellitus History of stroke Essential hypertension CKD (chronic kidney disease) stage 5, GFR less than 15 ml/min NSTEMI (non-ST elevated myocardial infarction) Acute exacerbation of CHF (congestive heart failure) ASSESSMENT & PLAN Hemoptysis, right tonsil mass, right cervical adenopathy; patient is 80-year-old male with persistent hemoptysis of at least 2 months duration with a large exophytic ulcerated mass of the right tonsil. He does have an extensive history of tobacco use. I have discussed with the patient that this likely represents a malignancy including lymphoma or squamous cell ca rcinoma. Due to his history of smoking, it seems that this is more likely squamous cell car cinoma there is also evidence of right cervical adenopathy. This likely represents metastat ic disease. He remains on chronic anticoagulation due to his history of stroke and due to h is most recent history of OR. -Plan for biopsy tomorrow a.m. This was again discussed with the patient and I have extensi vely detailed the reasoning behind necessity for biopsy. We will also plan for FNA of the r ight sided neck mass. -We will discuss results with the primary team when available -Please call with any questions. Disposition: Per primary team Code Status: Full Code Pam Barba DO 08/30/2020 Shannan Linares MD - 08/30/2020 1:31 PM PDTFormatting of this note might be different from the [facility]: Hospitalist Progress Note Pt: Porfirio Andujar AGE/SEX: 80 y.o. male ROOM: [facility]/4439- : 1940 PCP: Jessenia Bergman ADMIT DATE: 08/24/2020 TODAY'S DATE: 08/30/2020 Hospital Day/Hospital Course: LOS: 5 days Mr. Andujar is a 80-year-old male with a history of COPD on home oxygen of up to 3 L at home , tobacco use disorder in remission ([id number] smoking history, quit 2 weeks ago), type I I DM, HLD, HTN, history of DVT, history of LLE amputation with phantom limb pain, PAOLO on BiP AP, CVA, ESRD on HD, who originally presented to an outside hospital for shortness of breath , found to be in CHF exacerbation, with work-up revealing NSTEMI and transferred here for [facility] level of care. EKG at outside hospital showed possible ST elevations in V2 and V3 and mild reciprocal changes in lead I, cardiology consulted and determined that patient did not meet criteria for STEMI, troponin was elevated to 8.035. Hospital course has been further c omplicated by acute on chronic hemoptysis with work-up ongoing and unfortunately has been de laying his cardiac catheterization as he cannot safely undergo the procedure and potential f or blood thinners thereafter. During hospitalization he has required 2 units of PRBCs for h is hemoptysis. He initially required BiPAP due to respiratory distress however has been abl e to wean off. SUBJECTIVE: Patient feels well. He remains on 2 L of O2 via nasal cannula. He denies any chest pain, dyspnea, palpitations. Still reporting scant hemoptysis as seen in bag at bedside. Also de nies any fevers, chills. Scheduled Medications: aspirin 81 mg Oral Daily atorvaSTATin 80 mg Oral Nightly budesonide-formoterol 2 puff Inhalation RT BID clopidogrel 75 mg Oral Daily epoetin amarjit-epbx 10,000 Units Subcutaneous Weekly heparin 1,500-6,000 Units Intracatheter After each dialysis insulin glargine 13 Units Subcutaneous Nightly insulin lispro 0-6 Units Subcutaneous 4x Daily WC and HS isosorbide mononitrate 30 mg Oral Daily lisinopril 2.5 mg Oral Nightly polyethylene glycol 17 g Oral Daily torsemide 40 mg Oral Daily Continuous Infusions dextrose 10% PRN Medications acetaminophen, albuterol, Hypoglycemia Management AND POCT Glucose AND dextrose A ND dextrose 10%, docusate sodium, lidocaine (PF), lidocaine, nitroglycerin, ondansetron, o xyCODONE, promethazine, sodium chloride 0.9%, sodium chloride 0.9% Allergy: Allergies Allergen Reactions Trazodone Hallucination OBJECTIVE: Vitals: BP 98/54 | Pulse 79 | Temp 36.6 C (97.9 F) | Resp 20 | Ht 1.727 m (5' 8") | Wt 79. 8 kg (176 lb) | SpO2 100% | BMI 26.76 kg/m I&O Detailed Table: Intake/Output Summary (Last 24 hours) at 08/30/2020 1331 Last data filed at 08/30/2020 1300 Gross per 24 hour Intake Output 525 ml Net -525 ml Patient Vitals for the past 96 hrs: Weight 08/30/20 0327 79.8 kg (176 lb) 08/29/20 0411 79.5 kg (175 lb 3.2 oz) 08/28/20 1255 79.3 kg (174 lb 13.2 oz) 08/28/20 1249 79.3 kg (174 lb 13.2 oz) 08/28/20 0909 81.3 kg (179 lb 3.7 oz) 08/28/20 0341 80.9 kg (178 lb 4.8 oz) 08/27/20 0400 83 kg (183 lb) 08/26/20 1545 83.1 kg (183 lb 3.2 oz) Physical Examination: GEN: elderly male in no apparent distress HEAD: normocephalic EYES: no conjunctival icterus or injection ENT: MMM, clear oropharynx, O2 NC in place NECK: supple, no cervical lymphadenpathy CV: RR at ~70 bpm, normal S1/S2, no murmurs RESP: CTAB without crackles or wheezes ABD: soft, NT/ND, BS+, no obvious masses/organomegaly SKIN: warm and dry, no rashes MSK: normal muscle bulk and tone PSYCH: mood is good, affect congruent NEURO: grossly non-focal LABS: BMP 137 103 42* 79 4.3 26 3.61* CaMgPhos 7.7* 2.1 7.4* LFT 15 60 12 3.3 CBC 10.87 9.6* 251 31.0* Coag 1.1 Last labs from current encounter as of 08/30/20-13:31 PDT Recent Labs Lab 08/26/20 0520 08/24/20 2302 INR 1.1 1.2 IMAGING: Reviewed in [facility], no new results. PROBLEM LIST Principal Problem: Acute respiratory failure with hypoxia Active Problems: Hemoptysis PAOLO (obstructive sleep apnea) COPD (chronic obstructive pulmonary disease) Anemia of chronic kidney failure, stage 5 Diabetes mellitus History of stroke Essential hypertension CKD (chronic kidney disease) stage 5, GFR less than 15 ml/min NSTEMI (non-ST elevated myocardial infarction) Acute exacerbation of CHF (congestive heart failure) Resolved Problems: * No resolved hospital problems. * ASSESSMENT & PLAN Hemoptysis / tonsillar mass Hemoptysis persists with specks of blood at bedside. CTA chest without evidence of PE or ma ss to suggest malignancy. On exam he has a tonsillar mass. ENT consulted who will perform bi opsy tomorrow; concern for new diagnosis head/neck squamous cell carcinoma. No airway concer ns. -ENT, Dr. Barba consulted, biopsy tomorrow (does not need to be NPO) -oncology, Dr. Martinez consulted, imaging recs per him NSTEMI -presented with troponin of 8, EKG not diagnostic of STEMI -not having anginal chest pain -cardiology, Dr. Landry consulted -continue ASA, plavix, statin, AUGIE, BB, imdur -awaiting cardiac cath, needs workup for hemoptysis ESRD on HD -nephrology, Dr. Acuna following, HD per him -continue torsemide 40 mg daily Acute hypoxemic respiratory failure Initially thought to be multi-factorial including acute systolic CHF exacerbation, COPD exa cerbation, NSTEMI, all of which improved. -O2 prn, currently on 2L O2 via NC TII DM: continue lantus nightly and SSI History of CVA: stable, continue ASA, statin HTN, essential: normotensive, continue AUGIE, BB PAOLO: stable, continue bipap COPD: acute exacerbation on admit, now back to normal baseline and home O2 requirement Anemia, normocytic: suspected to be due to kidney disease, monitor PPx: full dose AC as above Code status: Full Contacts: Charlotte Andujar, daughter, , updated in person on 08/30 Dispo: pending workup as above, possibly medically ready by end of the week, PT rec home wi th assist Edmund Dalton MD 1:31 PM PDT 08/30/2020 Portions of this chart may have been copied from previous notes for continuity of care purp ose akeisha Landry MD - 08/30/2020 6:22 AM PDT [facility] Service: Cardiology Progress Note Name of Beauty Sales Consultant: Lakeisha Landry MD I have seen the patient on 08/30/2020, continues to have hemoptysis, diagnosed with tonsilla r mass pending biopsy . Received 2 units of PRBC. Continues to have hemoptysis. SUBJECTIVE Current Facility-Administered Medications: acetaminophen (TYLENOL) tablet 650 mg, 650 mg, Oral, Q4H PRN, Dagoberto Lloyd, DO, 650 mg a t 08/26/20 0129 albuterol 90 mcg/puff inhaler 2 puff, 2 puff, Inhalation, RT Q4H PRN, Dagoberto Lloyd, DO aspirin chewable tablet 81 mg, 81 mg, Oral, Daily, Dagoberto Lloyd, DO, 81 mg at 08/29/20 0 725 atorvaSTATin (LIPITOR) tablet 80 mg, 80 mg, Oral, Nightly, Dagoberto Lloyd, DO, 80 mg at 2118 budesonide-formoterol (SYMBICORT) 160-4.5 mcg/puff inhaler 2 puff, 2 puff, Inhalation, RT BID, Dagoberto Lloyd, DO, 2 puff at 08/29/20 211 clopidogrel (PLAVIX) tablet 75 mg, 75 mg, Oral, Daily, Dagoberto Lloyd, DO, 75 mg at 0725 Hypoglycemia Management, , , Until Discontinued AND POCT Glucose, , , PRN AND dextrose 50% injection 12.5-25 g, 12.5-25 g, Intravenous, PRN, 12.5 g at 08/28/20 0835 AND dextrose 10% (D10W) infusion, , Intravenous, Continuous PRN, Dagobetro Lloyd, DO docusate sodium (COLACE) capsule 100 mg, 100 mg, Oral, BID PRN, Dagoberto Lloyd, DO epoetin amarjit-epbx (RETACRIT) 10,000 units/mL injection 10,000 Units, 10,000 Units, Sub cutaneous, Weekly, Farrukh Acuna MD, 10,000 Units at 08/27/20 1539 heparin 1,000 units/mL injection 1,500-6,000 Units, 1,500-6,000 Units, Intracatheter, After each dialysis, Farrukh Acuna MD insulin glargine (LANTUS SOLOSTAR) injection (pen) 13 Units, 13 Units, Subcutaneous, N ightly, Justin Quick MD insulin lispro (humaLOG, ADMELOG) injection (vial) 0-6 Units, 0-6 Units, Subcutaneous, 4x Daily WC and HS, [facility], , 1 Units at 08/29/20 2217 isosorbide mononitrate (IMDUR) ER tablet 30 mg, 30 mg, Oral, Daily, Seven hidalgo MD, 30 mg at 08/29/20 0724 lidocaine (PF) 1% injection 0.5 mL, 0.5 mL, Intradermal, Dialysis - PRN, Farrukh Acuna MD, 0.5 mL at 08/26/20 1225 lidocaine 1% injection 0.5 mL, 0.5 mL, Intradermal, Dialysis - PRN, Seven hidalgo MD lisinopril (PRINIVIL, ZESTRIL) tablet 2.5 mg, 2.5 mg, Oral, Nightly, Farrukh Acuna MD, 2.5 mg at 08/29/20 2118 nitroglycerin (NITROSTAT) SL tablet 0.4 mg, 0.4 mg, Sublingual, Q5 Min PRN, [facility], 0.4 mg at 08/29/20 2125 ondansetron (ZOFRAN) injection 4-8 mg, 4-8 mg, Intravenous, Q6H PRN, [facility], 8 mg at 08/27/20 1223 oxyCODONE (ROXICODONE) tablet 15 mg, 15 mg, Oral, Q4H PRN, [facility], 15 mg at 0227 polyethylene glycol (MIRALAX) powder 17 g, 17 g, Oral, Daily, [facility], 17 g at 08/29/20 0726 promethazine (PHENERGAN) (IV ONLY) injection 6.25 mg, 6.25 mg, Intravenous, Q6H PRN, D shawn Shaw MD, 6.25 mg at 08/27/20 1257 sodium chloride 0.9% (NS) bolus 100 mL, 100 mL, Intravenous, Dialysis - PRN, Farrukh richey MD sodium chloride 0.9% (NS) bolus 100 mL, 100 mL, Intravenous, Dialysis - PRN, Farrukh richey MD torsemide (DEMADEX) tablet 40 mg, 40 mg, Oral, Daily, Farrukh Acuna MD, 40 mg at 08/29 0723 OBJECTIVE Vital Signs: BP 113/57 | Pulse 69 | Temp 36.8 C (98.2 F) (Oral) | Resp 18 | Ht 1.727 m (5' 8") | Wt 79.8 kg (176 lb) | SpO2 97% | BMI 26.76 kg/m Intake/Output Summary (Last 24 hours) at 08/30/2020 0622 Last data filed at 08/30/2020 0425 Gross per 24 hour Intake 480 ml Output 225 ml Net 255 ml Cardiovascular: Regular rhythm, S1 normal and S2 normal. Pulmonary/Chest: Effort normal and breath sounds normal. Abdominal: Soft. No tenderness. Musculoskeletal: left BKA. Neurological: Alert. No cranial nerve deficit. Skin: Warm and dry. DATA Recent Labs Lab 08/30/20 0401 08/28/20 0937 08/26/20 0520 08/24/20 2300 NA 137 138 137 132* K 4.3 3.8 4.1 4.5 CO2 26 30 29 21* BUN 42* 36* 60* 84* CREA 3.61* 2.64* 4.10* 5.55* EGFR 16* 23* 14* 10* CALCIUM 7.7* 7.3* 8.1* 7.8* MG -- -- 2.1 2.1 Recent Labs Lab 08/30/20 0401 08/28/20 0937 08/26/20 0520 WBC 10.87 9.19 10.48 HGB 9.6* 9.6* 8.7* HCT 31.0* 29.4* 27.3* MCV 93.1 90.5 91.0 PLT 251 261 314 Recent Labs Lab 08/26/20 0520 08/25/20 1944 08/25/20 1557 08/25/20 1157 08/24/20 2302 CKMB -- 6.7* 7.5* 8.0* < > -- INR 1.1 -- -- -- -- 1.2 < > = values in this interval not displayed. Lab Results Component Value Date CHOL 119 08/25/2020 CHOL 117 07/14/2018 TRIG 67 08/25/2020 LDL 64 08/25/2020 HDL 42 08/25/2020 GLUF 250 (A) 05/29/2020 EK08/25/2020 Reviewed showed normal sinus rhythm, intraventricular delay, anterolateral T wave inversion s. Last Echo: 08/25/2020 Technically difficult study with poor acoustic windows. Left ventricle appears mildly dilated with moderately impaired systolic function EF 35 to 4 0%. Akinetic anterior, anteroseptal, septal, inferoseptal, and apical segments. Right ventricle appears moderately dilated with impaired systolic function. No pericardial effusion Last stress test: Last cath: Carotid US: AAA screening: Lower extremity US: OTHERS: ASSESSMENT & PLAN Patient is 80 y.o. with 1. Non-ST elevation OR currently chest pain-free hemodynamic stable. 2. Acute decompensated congestive heart failure. 3. Ongoing hemoptysis. 4. Tonsillar mass pending biopsy. 5. Ischemic cardiomyopathy. NYH class III, stage C. 6. Stage V kidney disease requiring urgent hemodialysis. 7. Bedbound and chair bound. 8. Type 2 diabetes mellitus. 9. History of cerebrovascular accident. 10. Chronic obstructive pulmonary disease. 11. Normocytic anemia possibly of chronic disease. Recommendations: Continues with hemoptysis and received a 2 units of PRBC. Will wait for pathologic diagnosis of the tonsillar mass, suspicious for squamous cell carc inoma. Continues to be poor candidate for invasive evaluation. Blood pressure is low to add any medical guided therapy for cardiomyopathy. Will continue with hemodialysis. Pain management. Monitoring of respiratory status and CBC. Medical management by the hospitalist team. Code Status: Full Code Lakeisha Landry MD 08/30/2020 Chely Hopkins RN - 08/30/2020 2:00 AM PDTPatient complained of chest pain at 5. Gave one dose of nitro a nd got an EKG. Notified MD. Troponin was ordered. Troponin was 1.886. Will continue to monit or. Edmund Linares MD - 08/29/2020 11:44 AM PDT [facility] Service: Hospitalist Progress Note Pt: Porfirio Morris Con AGE/SEX: 80 y.o. male ROOM: [address] [place] [address] : 1940 PCP: Jessenia Bergman ADMIT DATE: 08/24/2020 TODAY'S DATE: 08/29/2020 Hospital Day/Hospital Course: LOS: 4 days Mr. Andujar is a 80-year-old male with a history of COPD on home oxygen of up to 3 L at home , tobacco use disorder in remission ([id number] smoking history, quit 2 weeks ago), type I I DM, HLD, HTN, history of DVT, history of LLE amputation with phantom limb pain, PAOLO on BiP AP, CVA, ESRD on HD, who originally presented to an outside hospital for shortness of breath , found to be in CHF exacerbation, with work-up revealing NSTEMI and transferred here for [facility] level of care. EKG at outside hospital showed possible ST elevations in V2 and V3 and mild reciprocal changes in lead I, cardiology consulted and determined that patient did not meet criteria for STEMI, troponin was elevated to 8.035. Hospital course has been further c omplicated by acute on chronic hemoptysis with work-up ongoing and unfortunately has been de laying his cardiac catheterization as he cannot safely undergo the procedure and potential f or blood thinners thereafter. During hospitalization he has required 2 units of PRBCs for h is hemoptysis. He initially required BiPAP due to respiratory distress however has been abl e to wean off. SUBJECTIVE: Patient feels well. He remains on 2 L of O2 via nasal cannula. He denies any chest pain, dyspnea, palpitations. Still reporting scant hemoptysis as seen in bag at bedside. Also de nies any fevers, chills. Scheduled Medications: aspirin 81 mg Oral Daily atorvaSTATin 80 mg Oral Nightly budesonide-formoterol 2 puff Inhalation RT BID clopidogrel 75 mg Oral Daily epoetin amarjit-epbx 10,000 Units Subcutaneous Weekly heparin 1,500-6,000 Units Intracatheter After each dialysis insulin glargine 25 Units Subcutaneous Nightly insulin lispro 0-6 Units Subcutaneous 4x Daily WC and HS isosorbide mononitrate 30 mg Oral Daily lisinopril 2.5 mg Oral Nightly polyethylene glycol 17 g Oral Daily torsemide 40 mg Oral Daily Continuous Infusions dextrose 10% PRN Medications acetaminophen, albuterol, Hypoglycemia Management AND POCT Glucose AND dextrose A ND dextrose 10%, docusate sodium, lidocaine (PF), lidocaine, nitroglycerin, ondansetron, o xyCODONE, promethazine, sodium chloride 0.9%, sodium chloride 0.9% Allergy: Allergies Allergen Reactions Trazodone Hallucination OBJECTIVE: Vitals: BP 129/62 | Pulse 72 | Temp 36.4 C (97.5 F) (Oral) | Resp 18 | Ht 1.727 m (5' 8") | Wt 79.5 kg (175 lb 3.2 oz) | SpO2 96% | BMI 26.64 kg/m I&O Detailed Table: Intake/Output Summary (Last 24 hours) at 08/29/2020 1145 Last data filed at 08/28/2020 1736 Gross per 24 hour Intake Output 1900 ml Net -1900 ml Patient Vitals for the past 96 hrs: Weight 08/29/20 0411 79.5 kg (175 lb 3.2 oz) 08/28/20 1255 79.3 kg (174 lb 13.2 oz) 08/28/20 1249 79.3 kg (174 lb 13.2 oz) 08/28/20 0909 81.3 kg (179 lb 3.7 oz) 08/28/20 0341 80.9 kg (178 lb 4.8 oz) 08/27/20 0400 83 kg (183 lb) 08/26/20 1545 83.1 kg (183 lb 3.2 oz) 08/26/20 1200 84.8 kg (186 lb 15.2 oz) 08/26/20 0300 85 kg (187 lb 6.3 oz) Physical Examination: GEN: elderly male in no apparent distress HEAD: normocephalic EYES: no conjunctival icterus or injection ENT: MMM, clear oropharynx, O2 NC in place NECK: supple, no cervical lymphadenpathy CV: RR at ~70 bpm, normal S1/S2, no murmurs RESP: CTAB without crackles or wheezes ABD: soft, NT/ND, BS+, no obvious masses/organomegaly SKIN: warm and dry, no rashes MSK: normal muscle bulk and tone PSYCH: mood is good, affect congruent NEURO: grossly non-focal LABS: BMP 138 103 36* 149* 3.8 30 2.64* CaMgPhos 7.3* 2.1 7.4* LFT 15 60 12 3.3 CBC 9.19 9.6* 261 29.4* Coag 1.1 Last labs from current encounter as of 08/29/20-11:45 PDT Recent Labs Lab 08/26/20 0520 08/24/20 2302 INR 1.1 1.2 IMAGING: Reviewed in EPIC, no new results. PROBLEM LIST Principal Problem: Acute respiratory failure with hypoxia Active Problems: Hemoptysis PAOLO (obstructive sleep apnea) COPD (chronic obstructive pulmonary disease) Anemia of chronic kidney failure, stage 5 Diabetes mellitus History of stroke Essential hypertension CKD (chronic kidney disease) stage 5, GFR less than 15 ml/min NSTEMI (non-ST elevated myocardial infarction) Acute exacerbation of CHF (congestive heart failure) Resolved Problems: * No resolved hospital problems. * ASSESSMENT & PLAN Hemoptysis Hemoptysis persists with specks of blood at bedside. CTA chest with contrast obtained which did not reveal PE or masses, latter of which would be concerning for malignancy given exten sive smoking history. Oral exam is limited by patients tongue despite use of tongue depresso r but patient does seem to have significant posterior pharynx erythema. Consulted ENT to fur ther assess to see if laryngoscopy may reveal focal lesion that is bleeding and can be inter vened upon to stop bleeding as concern is this may get worse if not fully evaluated prior to cath. -ENT, Dr. Barba consulted, patient NPO at SC NSTEMI -presented with troponin of 8, EKG not diagnostic of STEMI -not having anginal chest pain -cardiology, Dr. Landry consulted -continue ASA, plavix, statin, AUGIE, BB, imdur -awaiting cardiac cath, needs workup for hemoptysis ESRD on HD -nephrology, Dr. Acuna following, HD per him -continue torsemide 40 mg daily Acute hypoxemic respiratory failure Initially thought to be multi-factorial including CHF exacerbation, COPD exacerbation, NSTE OR, all of which improved. -O2 prn, currently on 2L O2 via NC TII DM: continue lantus nightly and SSI History of CVA: stable, continue ASA, statin HTN, essential: normotensive, continue AUGIE, BB PAOLO: stable, continue bipap COPD: acute exacerbation on admit, now back to normal baseline and home O2 requirement Anemia, normocytic: suspected to be due to kidney disease, monitor PPx: full dose AC as above Code status: Full Dispo: pending workup as above, possibly medically ready by end of the week, PT rec home wi th assist Edmund Dalton MD 11:45 AM PDT 08/29/2020 Portions of this chart may have been copied from previous notes for continuity of care purp ose koum, Farrukh Rubio MD - 0 08/29/2020 9:33 AM PDT Hospital Problem List: Principal Problem: Acute respiratory failure with hypoxia Active Problems: Hemoptysis PAOLO (obstructive sleep apnea) COPD (chronic obstructive pulmonary disease) Anemia of chronic kidney failure, stage 5 Diabetes mellitus History of stroke Essential hypertension CKD (chronic kidney disease) stage 5, GFR less than 15 ml/min NSTEMI (non-ST elevated myocardial infarction) Acute exacerbation of CHF (congestive heart failure) The patient says that he feels 'ok' today. He denies any dizziness, cp, sob, abd pain, n/v . Hemoptysis continues. His urine output is low. The following portions of the patient's history were reviewed and updated as appropriate: l aboratory data, radiologic studies, allergies, current medications, and problem list. Inpatient Meds: aspirin 81 mg Oral Daily atorvaSTATin 80 mg Oral Nightly budesonide-formoterol 2 puff Inhalation RT BID clopidogrel 75 mg Oral Daily epoetin amarjit-epbx 10,000 Units Subcutaneous Weekly heparin 1,500-6,000 Units Intracatheter After each dialysis insulin glargine 25 Units Subcutaneous Nightly insulin lispro 0-6 Units Subcutaneous 4x Daily WC and HS isosorbide mononitrate 30 mg Oral Daily lisinopril 2.5 mg Oral Nightly polyethylene glycol 17 g Oral Daily torsemide 40 mg Oral Daily dextrose 10% P.E. BP 113/58 | Pulse 68 | Temp 36.7 C (98.1 F) (Oral) | Resp 19 | Ht 1.727 m (5' 8") | Wt 79.5 kg (175 lb 3.2 oz) | SpO2 94% | BMI 26.64 kg/m General appearance: Pleasant, not in acute distress. Lungs: Good A/E to auscultation bilaterally. There are no wheezes. Heart: Regular rate and rhythm without any rub, gallop. Faint systolic murmurat the LSB. Abdominal exam: Soft and nontender with normal bowel sounds. Extremities: Warm to touch with 1+ right leg edema. There is no cyanosis or clubbing. Neurological: Awake, alert, and oriented to time, place, and person. Normal gross motor po wer. There is no asterixis. Access: good thrill in AVF. Recent Labs 08/28/20 0937 BUN 36* CREA 2.64* EGFR 23* NA 138 K 3.8 CL 103 CO2 30 CALCIUM 7.3* ALBUMIN 3.3 HGB 9.6* HCT 29.4* I/O last 3 completed shifts: In: 680 [P.O.:680] Out: 2125 [Urine:625] No intake/output data recorded. Assessment: Mr. Andujar is a 80 y.o. male patient with ESRD on HD now. First session on 08/25/20. Acute hypoxic resp failure, improved Peripheral edema, improved STEMI Hemoptysis High risk for electrolytes imbalance hypoNa Met acidosis hyperPhos hypoAlb Anemia in ESRD -He was admitted with "NSTEMI (non-ST elevated myocardial infarction) (HCC) [I21.4] ESRD needing dialysis (HCC) [N18.6, Z99.2] Hypervolemia, unspecified hypervolemia type [E87.70] Anemia of chronic renal failure, unspecified CKD stage [N18.9, D63.1] Congestive heart failure, unspecified HF chronicity, unspecified heart failure type (HCC) [ I50.9] -He presented with "Shortness of Breath (chf exacerbation, [facility] ative two days ago ) Recommendations: There is no acute FEE CLERK indication at this time Plan it for MWF, Heparin-free No IVF need Vasoactive meds as ordered PO torsemide 40 a day Monitor BP closely & frequently Reinforce lytes protocol Strict low sodium in the diet stressed Protein supplement stressed Strict I/O & daily weights. Dose all of meds to his intermittent HD + the severely low eGFR, as he still has some RKF. Continue to avoid all kinds of nephrotoxins. Target euvolumia with a MAP>75 mmHg as possible. I discussed with the primary team the case after the time of this encounter. Farrukh Acuna MD Marina De Leon [place] [facility] h - 08/29/2020 8:43 AM PDTPatients chair time is: Friday @ 2:30pm-please have patient arrive on FIRST DAY ONLY 08-30-20 @ 1:3 0pm for new patient paperwork. [facility] [address] [place] [address] Thank you, Marina - Dialysis Coord. 8:4 7 AM Kalli Powers, [employer] - 08/29/2020 8:26 AM PDTPatient is a pleasant 80 y .o. male with congestive heart failure. During my CHF counseling, I verified the patient's i dentity, allergies, home medications, and medication adherence. I discussed with the patient on medication purpose, mechanism of action, pertinent adverse effects, and necessary counse ling points. I also recommended the following: It's important to take your medication everyday as directed, even when you feel well. Do not change how to take your medication without first consulting your doctor. Let your provi dixie(s) know about any other medications you taking, including any [id number] products like pain-relievers, cold remedies, vitamins, and herbal products. Patient is compliant with taking medications. Patient does not use a medication list. Patient does use a pill box. Check your weight every morning, after urinating, before eating or drinking. Patient does have a scale at home. Monitor blood pressure daily. Patient does have a blood pressure cuff at home. Eat a healthy and balanced low-sodium diet. Avoid fast food or processed/packaged foods. Encouraged more intake of fruits and vegetables. Limit alcohol intake. Contact your doctor if you notice: Changes in breathing (increased shortness of breath, increased cough, needing more carmela ws to sleep than usual) Changes in weight (more than 3-lb increase overnight or more than 5-lb increase in a wee k) New or worsening swelling Changes in ability to do everyday things (feeling faint/dizzy, chest pain) Patient reported no questions during my visit. Patient was receptive to counseling. Family/ friends/caregivers were not present during my visit. Thank you, Kalli Campos, [employer] Lakeisha Turner MD - 08/29/2020 6:25 AM PDTFormatting of this note might be different from t he original. [facility] Service: Cardiology Progress Note Name of Beauty Sales Consultant: Lakeisha Landry MD I have seen the patient on 08/29/2020, continues to have hemoptysis. Received 2 units of PRB C. Continues to have hemoptysis. SUBJECTIVE Current Facility-Administered Medications: acetaminophen (TYLENOL) tablet 650 mg, 650 mg, Oral, Q4H PRN, Dagoberto Lloyd, DO, 650 mg a t 08/26/20 0129 albuterol 90 mcg/puff inhaler 2 puff, 2 puff, Inhalation, RT Q4H PRN, Dagoberto Lloyd, DO aspirin chewable tablet 81 mg, 81 mg, Oral, Daily, Dagoberto Lloyd, DO, 81 mg at 08/28/20 0 747 atorvaSTATin (LIPITOR) tablet 80 mg, 80 mg, Oral, Nightly, Dagoberto Lloyd, DO, 80 mg at 2022 budesonide-formoterol (SYMBICORT) 160-4.5 mcg/puff inhaler 2 puff, 2 puff, Inhalation, RT BID, Dagoberto Lloyd, DO, 2 puff at 08/28/202022 clopidogrel (PLAVIX) tablet 75 mg, 75 mg, Oral, Daily, Dagoberto Lloyd, DO, 75 mg at 0747 Hypoglycemia Management, , , Until Discontinued AND POCT Glucose, , , PRN AND dextrose 50% injection 12.5-25 g, 12.5-25 g, Intravenous, PRN, 12.5 g at 08/28/20 0835 AND dextrose 10% (D10W) infusion, , Intravenous, Continuous PRN, Dagoberto Lloyd, DO docusate sodium (COLACE) capsule 100 mg, 100 mg, Oral, BID PRN, Dagoberto Lloyd, DO epoetin amarjit-epbx (RETACRIT) 10,000 units/mL injection 10,000 Units, 10,000 Units, Sub cutaneous, Weekly, Farrukh Acuna MD, 10,000 Units at 08/27/20 1539 heparin 1,000 units/mL injection 1,500-6,000 Units, 1,500-6,000 Units, Intracatheter, After each dialysis, Farrukh Acuna MD insulin glargine (LANTUS SOLOSTAR) injection (pen) 25 Units, 25 Units, Subcutaneous, N ightly, Dagoberto Desai DO, 25 Units at 08/27/20 2146 insulin lispro (humaLOG, ADMELOG) injection (vial) 0-6 Units, 0-6 Units, Subcutaneous, 4x Daily WC and HS, Dagoberto Desai DO, 2 Units at 08/28/20 1655 isosorbide mononitrate (IMDUR) ER tablet 30 mg, 30 mg, Oral, Daily, Seven hidalgo MD, 30 mg at 08/28/20 1352 lidocaine (PF) 1% injection 0.5 mL, 0.5 mL, Intradermal, Dialysis - PRN, Farrukh Acuna MD, 0.5 mL at 08/26/20 1225 lidocaine 1% injection 0.5 mL, 0.5 mL, Intradermal, Dialysis - PRN, Seven hidalgo MD lisinopril (PRINIVIL, ZESTRIL) tablet 2.5 mg, 2.5 mg, Oral, Nightly, Farrukh Acuna MD, 2.5 mg at 08/28/202022 nitroglycerin (NITROSTAT) SL tablet 0.4 mg, 0.4 mg, Sublingual, Q5 Min PRN, Dagoberto Desai DO ondansetron (ZOFRAN) injection 4-8 mg, 4-8 mg, Intravenous, Q6H PRN, Dagoberto Desai DO, 8 mg at 08/27/20 1223 oxyCODONE (ROXICODONE) tablet 15 mg, 15 mg, Oral, Q4H PRN, Dagoberto Desai DO, 15 mg at 0025 polyethylene glycol (MIRALAX) powder 17 g, 17 g, Oral, Daily, Dagoberto Desai DO, 17 g at 08/26/20 0905 promethazine (PHENERGAN) (IV ONLY) injection 6.25 mg, 6.25 mg, Intravenous, Q6H PRN, D shawn Shaw MD, 6.25 mg at 08/27/20 1257 sodium chloride 0.9% (NS) bolus 100 mL, 100 mL, Intravenous, Dialysis - PRN, Farrukh richey MD sodium chloride 0.9% (NS) bolus 100 mL, 100 mL, Intravenous, Dialysis - PRN, Farrukh richey MD torsemide (DEMADEX) tablet 40 mg, 40 mg, Oral, Daily, Farrukh Acuna MD, 40 mg at 08/28 0747 OBJECTIVE Vital Signs: BP 107/53 | Pulse 68 | Temp 36.7 C (98.1 F) (Oral) | Resp 19 | Ht 1.727 m (5' 8") | Wt 79.5 kg (175 lb 3.2 oz) | SpO2 94% | BMI 26.64 kg/m Intake/Output Summary (Last 24 hours) at 08/29/2020 0625 Last data filed at 08/28/2020 1736 Gross per 24 hour Intake 680 ml Output 1900 ml Net -1220 ml Cardiovascular: Regular rhythm, S1 normal and S2 normal. Pulmonary/Chest: Effort normal and breath sounds normal. Abdominal: Soft. No tenderness. Musculoskeletal: left BKA. Neurological: Alert. No cranial nerve deficit. Skin: Warm and dry. DATA Recent Labs Lab 08/28/2093608/26/20 0508/24/20 2300 NA 138 137 132* K 3.8 4.1 4.5 CO2 30 29 21* BUN 36* 60* 84* CREA 2.64* 4.10* 5.55* EGFR 23* 14* 10* CALCIUM 7.3* 8.1* 7.8* MG -- 2.1 2.1 Recent Labs Lab 08/28/20 0937 08/26/20 0520 08/24/20 2300 WBC 9.19 10.48 10.66 HGB 9.6* 8.7* 7.9* HCT 29.4* 27.3* 24.8* MCV 90.5 91.0 92.5 PLT 261 314 327 Recent Labs Lab 08/26/20 0520 08/25/20 1944 08/25/20 1557 08/25/20 1157 08/24/20 2302 CKMB -- 6.7* 7.5* 8.0* < > -- INR 1.1 -- -- -- -- 1.2 < > = values in this interval not displayed. Lab Results Component Value Date CHOL 119 08/25/2020 CHOL 117 07/14/2018 TRIG 67 08/25/2020 LDL 64 08/25/2020 HDL 42 08/25/2020 GLUF 250 (A) 05/29/2020 EK08/25/2020 Reviewed showed normal sinus rhythm, intraventricular delay, anterolateral T wave inversion s. Last Echo: 08/25/2020 Technically difficult study with poor acoustic windows. Left ventricle appears mildly dilated with moderately impaired systolic function EF 35 to 4 0%. Akinetic anterior, anteroseptal, septal, inferoseptal, and apical segments. Right ventricle appears moderately dilated with impaired systolic function. No pericardial effusion Last stress test: Last cath: Carotid US: AAA screening: Lower extremity US: OTHERS: ASSESSMENT & PLAN Patient is 80 y.o. with 1. Non-ST elevation OR currently chest pain-free hemodynamic stable. 2. Acute decompensated congestive heart failure. 3. Ongoing hemoptysis. 4. Ischemic cardiomyopathy. NYH class III, stage C. 5. Stage V kidney disease requiring urgent hemodialysis. 6. Bedbound and chair bound. 7. Type 2 diabetes mellitus. 8. History of cerebrovascular accident. 9. Chronic obstructive pulmonary disease. 10. Normocytic anemia possibly of chronic disease. Recommendations: Continues with hemoptysis and received a 2 units of PRBC. Continues to be poor candidate for invasive evaluation. Pending ENT/pulmonary evaluation to rule out malignancy prior to any invasive cardiac evalu ation. Blood pressure is low to add any medical guided therapy for cardiomyopathy. Will continue with hemodialysis. Pain management. Monitoring of respiratory status and CBC. Medical management by the hospitalist team. Code Status: Full Code Lakeisha Landry MD 08/29/2020 Shannon Fleming R D - 08/28/2020 2:54 PM PDT NUTRITION NOTE Summary Assessment for pressure injury. Pt is 80 yo M admitted for acute respiratory failure with h ypoxia. Met with pt. Pt reports the first meal he's eaten since admit was the meatloaf for l unch today. Pt reports having a poor appetite and states the food has no flavor here. Nutrition Intake Current active diet order is: Diet Diet fat and cholesterol modified; sodium restricted 2 gm; 1200 ml fluid; potassium 2 gm; Effective Now 10-50% meals charted. Pt receiving house meals. Pt did not want the cod meal tonight so ord ered pt a hamburger with tomato soup, fruit, and chocolate pudding. Nourishments: will place order for chocolate Ensure Compact daily Medications Reviewed Nutrition-Focused Physical Findings Extremities, Muscles and Bones: L AKA Skin: PI - R back, R heel Anthropometrics Current Weight: 79.3 kg (174 lb 13.2 oz) Admit Weight: 85 kg (187 lb 6.3 oz) Biochemical Data, Medical Test, and Procedures Recent Labs 08/28/20 0937 08/26/20 0520 NA 138 137 K 3.8 4.1 GLU 149* 105* BUN 36* 60* CREA 2.64* 4.10* MG -- 2.1 Estimated Energy Needs Energy Calorie Requirements: 7529-3930 kcal(25-30 kcal/kg CBW 79.3) Estimated Protein Needs Range Gm Protein (gm): 119-143 g(1.5-1.8 g/kg CBW 79.3) Nutrition Diagnosis Increased nutrient needs (specify)(protein) related to increased demand for wound healing a s evidenced by multiple pressure injuries Recommendations Recommend liberalizing diet to optimize PO intake/choices House meals Supplement daily - Ensure Compact with breakfast Encourage PO intake with adequate protein for healing Nutritional Risk Required Follow Up: (10/3 M) Shannon Hernandes RD 08/28/2020 2:54 PM PDT Seven Morton MD - 08/28/2020 9:08 AM PDTFormatting of this note might be different from the origin Porfirio Morris [facility] [phone] Hospital Day: 3 Patient is 80-year-old gentleman with past medical history of COPD chronic hypoxemic respir atory failure on oxygen up to 3 L at home, type 2 diabetes mellitus, lipidemia, hypertension , history of DVT history of amputation of left lower extremity with phantom limb pain, obesi ty, ESRD on BiPAP, PAOLO on BiPAP and 4 L continuous, stroke, and for the last 8 weeks may be a little bit more has been having occasional hemoptysis which patient has been told is from his tonsil, the patient states that it is only little bits of blood and not too much, was ad mitted on transfer from [facility] in [place] for increasing shortness of br eath and CHF exacerbation, patient was initially given 80 mg of Lasix in ED and sublingual n itroglycerin, and IV Solu-Medrol, patient had to be put on BiPAP and was transferred to [facility] for higher level of care, and [facility] ED the patient was noted to have ST elevations in V2 an d V3 and mild reciprocal change in lead I, ground support equipment mechanic was consulted and determined that it did not meet criteria for [facility],, and elevated troponin of 8.035, elevated CK-MB of 9.0 pa tient started on heparin drip however started to have more hemoptysis and that was stopped. Patient continues to be significantly short of breath, nephrology was consulted, and as per cardiology because of the patient's shortness of breath as well as bleeding when he got the heparin he is not a candidate for any intervention, medical management was done, the patien t had 2 units of packed RBC and [id number] dialysis, and over the course of his stay was a ble to get off BiPAP. And after the dialysis [id number] as well as on 08/28 2020 able to be weaned down to O2 of 4 L by nasal cannula and was transferred from [place], Dr. lynette alexander working at having the patient have a dialysis time in [place] so hopefully the patient c an be discharged home which hopefully will be Friday or Friday if it becomes available. SUBJECTIVE Events Overnight: Patient seen and examined at bedside. Overnight the patient still h ad occasional hemoptysis, he continues to be afebrile, was on o2 4 L by nasal cannula when h e started complaining about his fluid restriction and as that he was not getting 1200 mL of fluid daily denies chest pain, shortness admits this feels stronger, no nausea no vomiting o r diarrhea. Still with occasional hemoptysis. OBJECTIVE Vital Signs: Blood pressure 147/63, pulse 69, temperature 36.3 C (97.3 F), temperature source Axilla ry, resp. rate 20, height 1.727 m (5' 8"), weight 80.9 kg (178 lb 4.8 oz), SpO2 (!) 81 %. Physical Exam General Appearance: Alert, cooperative, on BiPAP and complaining of pain in his phantom limb, older than stated age frail looking age Head: Normocephalic, without obvious abnormality, atraumatic Eyes: PERRL, pale conjunctiva/corneas clear, EOM's intact, Ears: Normal external ear canals, both ears Nose: Nares normal, septum midline, mucosa normal, no drainage or sinus tenderness Throat: Lips, mucosa, and tongue wet, there is tonsillar enlargement bilaterally but no b leeding. Neck: Supple, symmetrical, trachea midline, no adenopathy; could be felt by me thyroid: No enlargement/tenderness/nodules; no carotid bruit or JVD Back: Symmetric, no curvature, ROM normal, no CVA tenderness Lungs: Clear to auscultation bilaterally, respirations unlabored Chest wall: No tenderness or deformity Heart: Regular rate and rhythm, S1 and S2 normal, no murmur, rub or gallop Abdomen: Soft, non-tender, bowel sounds active all four quadrants, no masses, no organomegaly Genitalia: Normal male without lesion, discharge or tenderness Extremities: Extremities left lower extremity amputation, positive arthritic changes, Pulses: 2+ and symmetric all extremities Skin: Skin color, texture, turgor normal, no rashes or lesions Lymph nodes: Cervical, supraclavicular, and axillary nodes normal Neurologic: CNII-XII intact. Normal strength, sensation and reflexes throughout DATA Recent Labs Lab 08/26/20 0520 08/25/20 1944 08/25/20 1557 08/25/20 1157 08/24/20 2302 08/24/20 2300 WBC 10.48 -- -- -- -- -- 10.66 HGB 8.7* -- -- -- -- -- 7.9* HCT 27.3* -- -- -- -- -- 24.8* PLT 314 -- -- -- -- -- 327 NA 137 -- -- -- -- -- 132* K 4.1 -- -- -- -- -- 4.5 CL 99 -- -- -- -- -- 97* CO2 29 -- -- -- -- -- 21* ANIONGAP 13 -- -- -- -- -- 19 BUN 60* -- -- -- -- -- 84* CREA 4.10* -- -- -- -- -- 5.55* GLU 105* -- -- -- -- -- 162* CALCIUM 8.1* -- -- -- -- -- 7.8* TP -- -- -- -- -- -- 6.2* ALBUMIN -- -- -- -- -- -- 3.8 BNP -- -- -- -- -- -- 2,431.10* PHOS -- -- -- -- -- -- 7.4* MG 2.1 -- -- -- -- -- 2.1 BILI -- -- -- -- -- -- 0.4 AST -- -- -- -- -- -- 22 ALT -- -- -- -- -- -- 12 ALKPHOS -- -- -- -- -- -- 86 CKMB -- 6.7* 7.5* 8.0* < > -- -- INR 1.1 -- -- -- -- 1.2 -- < > = values in this interval not displayed. No results for input(s): COLORUA, CLARITYUA, SPECGRAVU, LEUKEST, NITRITEUA, UUROB, URINEPRO TEIN, LABPH, BLOODUA, KETONESUA, BILIRUBINUA, GLUCOSEU, WBCUA, RBCUA, SQUAMEPIUA, BACTERIAUA , MUCUSUA, CRYSTALUA in the last 168 hours. No results found. PROBLEM LIST/IMPRESSION/PLAN: Principal Problem: Acute respiratory failure with hypoxia now improved continue with O2, BiPAP when sleep ing, continue dialysis regularly patient now awaiting chair time. Active Problems: CKD (chronic kidney disease) stage 5, GFR less than 15 ml/min nephrology on consult gilberto nue dialysis as per nephrology and Demadex 40 mg oral daily,fluid restriction 1200 mL dailyNestor Acuna is arranging for patient to have dialysis in [place]. Awaiting confirmation of c hair time hopefully Friday or Friday. NSTEMI (non-ST elevated myocardial infarction)/ acute exacerbation of CHF (congestive hea rt failure) Lipitor 80 mg daily, aspirin 81 mg daily clopidogrel 75 mg oral daily, lisinop ril 2.5 mg orally daily and on 08/28/2020 started on Imdur 30 mg orally daily in a.m. As per at this point and patient source of hemoptysis and possible mass or neck is rem breann the patient cannot have any interventional cardiology procedure done as he might bleed like he did when he got the heparin drip during admission, I have also contacted Dr.Wigley alicia de la cruz E[facility] and he is willing to see him in the office in 2 weeks after discharge, if he is able t o isolate or the patient this is his current then may be the patient interventional cardiolo gy done to further elucidate the reason for his and [facility]. Patient and daughter are agreea ble to this plan of care as the patient shortness of breath has dramatically improved with t he dialysis. Emphasized to the patient the need to quit taking his medications as well as d ietary changes and fluid restriction. PAOLO (obstructive sleep apnea) on BiPAP COPD (chronic obstructive pulmonary disease) not in exacerbation aspirin 81 mg daily Li pitor 80 mg daily Anemia of chronic kidney failure, stage 5/anemia also secondary to the patient's hemoptys is from possible tonsillar mass will discuss again with tomorrow if the patient co ntinues to improve.josh Diabetes mellitus Lantus 25units nightly and insulin sliding scale History of stroke no stroke now will try to control factors for stroke Essential hypertension continue with lisinopril 2.5 mg orally daily, adjust if needed Disposition: Pending course, likely home with the patient needing to have a dialysis chair [facility] which nephrology is arrangingon at this time, patient at her normal p atient can be discharged today or Friday depending the we can confirm that he has a chair time for dialysis Labs pending: BMP electrolytes Radiology studies pending: None Cultures pending: None Code Status: Full code discussed extensively with patient and daughter today, including what will happen if he goes into cardiac arrest including broken bones due to compression, a s well as his medical fragility because of his chronic medical conditions, the patient still wanted to be full code including antiarrhythmics, chest compressions, electric shock, and m echanical ventilation. Discussed this with daughter who agreed with the patient's decision. She can make the decision for him and is not able to make the decision. I explained radiology and lab findings and plan of care to patient and daughter Moriah at [phone] and [phone] they verbalized understanding and agreement and had no more questio ns for me after my interaction with them, I also told them another hospitalist will see the patient tomorrow. More than 35 minutes spent directly face to face with patient and more marya n 65% spent for physical examination and discussing plan of care and counseling about patie nt illness with patient and relatives at bedside, on chart review, coordinating care with ot her providers, formulating a plan of care and management as well as Computerized Physician O rder Entry. Dictation software, [employer], used which may contain error for similar sounding words even af ter review. Portions of this chart may have been copied from previous notes for continuity of care. Seven Shaw MD, FACP, FAAP 08/28/2020 ls Lakeisha matamoros MD - 08/28/2020 8:02 AM PDT [facility] Service: Cardiology Progress Note Name of Beauty Sales Consultant: Lakeisha Landry MD I have seen the patient on 08/28/2020, continues to have hemoptysis. Received 2 units of PRB C. SUBJECTIVE Current Facility-Administered Medications: acetaminophen (TYLENOL) tablet 650 mg, 650 mg, Oral, Q4H PRN, Dagoberto Lloyd, DO, 650 mg a t 08/26/20 0129 albuterol 90 mcg/puff inhaler 2 puff, 2 puff, Inhalation, RT Q4H PRN, Dagoberto Lloyd, DO aspirin chewable tablet 81 mg, 81 mg, Oral, Daily, Dagoberto Lloyd, DO, 81 mg at 08/28/20 0 747 atorvaSTATin (LIPITOR) tablet 80 mg, 80 mg, Oral, Nightly, Dagoberto Lloyd, DO, 80 mg at 1953 budesonide-formoterol (SYMBICORT) 160-4.5 mcg/puff inhaler 2 puff, 2 puff, Inhalation, RT BID, Dagoberto Desai DO, 2 puff at 08/28/20 0749 clopidogrel (PLAVIX) tablet 75 mg, 75 mg, Oral, Daily, Dagoberto Desai DO, 75 mg at 0747 Hypoglycemia Management, , , Until Discontinued AND POCT Glucose, , , PRN AND dextrose 50% injection 12.5-25 g, 12.5-25 g, Intravenous, PRN AND dextrose 10% (D10W) in fusion, , Intravenous, Continuous PRN, Dagoberto Desai DO docusate sodium (COLACE) capsule 100 mg, 100 mg, Oral, BID PRN, Dagoberto Desai DO epoetin amarjit-epbx (RETACRIT) 10,000 units/mL injection 10,000 Units, 10,000 Units, Sub cutaneous, Weekly, Farrukh Acuna MD, 10,000 Units at 08/27/20 1539 insulin glargine (LANTUS SOLOSTAR) injection (pen) 25 Units, 25 Units, Subcutaneous, N ightly, Dagoberto Desai DO, 25 Units at 08/27/20 2146 insulin lispro (humaLOG, ADMELOG) injection (vial) 0-6 Units, 0-6 Units, Subcutaneous, 4x Daily WC and HS, Dagoberto Desai DO, 3 Units at 08/25/20 1634 lidocaine (PF) 1% injection 0.5 mL, 0.5 mL, Intradermal, Dialysis - PRN, Farrukh Acuna MD, 0.5 mL at 08/26/20 1225 lisinopril (PRINIVIL, ZESTRIL) tablet 2.5 mg, 2.5 mg, Oral, Nightly, Farrukh Acuna MD, 2.5 mg at 08/27/201953 nitroglycerin (NITROSTAT) SL tablet 0.4 mg, 0.4 mg, Sublingual, Q5 Min PRN, Dagoberto Desai DO ondansetron (ZOFRAN) injection 4-8 mg, 4-8 mg, Intravenous, Q6H PRN, Dagoberto Lloyd, DO, 8 mg at 08/27/20 1223 oxyCODONE (ROXICODONE) tablet 15 mg, 15 mg, Oral, Q4H PRN, Dagoberto Lloyd, DO, 15 mg at 0022 polyethylene glycol (MIRALAX) powder 17 g, 17 g, Oral, Daily, Dagoberto Lloyd, DO, 17 g at 08/26/20 0905 promethazine (PHENERGAN) (IV ONLY) injection 6.25 mg, 6.25 mg, Intravenous, Q6H PRN, Nestor Shaw MD, 6.25 mg at 08/27/20 1257 sodium chloride 0.9% (NS) bolus 100 mL, 100 mL, Intravenous, Dialysis - PRN, Farrukh richey MD torsemide (DEMADEX) tablet 40 mg, 40 mg, Oral, Daily, Farrukh Acuna MD, 40 mg at 08/28 0747 OBJECTIVE Vital Signs: BP 147/63 | Pulse 78 | Temp 36.3 C (97.3 F) (Axillary) | Resp 20 | Ht 1.727 m (5' 8 ") | Wt 80.9 kg (178 lb 4.8 oz) | SpO2 93% | BMI 27.11 kg/m Intake/Output Summary (Last 24 hours) at 08/28/2020 0802 Last data filed at 08/28/2020 0617 Gross per 24 hour Intake 736 ml Output 225 ml Net 511 ml Cardiovascular: Regular rhythm, S1 normal and S2 normal. Pulmonary/Chest: Effort normal and breath sounds normal. No wheezes. No rales. Abdominal: Soft. No tenderness. Musculoskeletal: left BKA. Neurological: Alert. No cranial nerve deficit. Skin: Warm and dry. DATA Recent Labs Lab 08/26/20 0520 08/24/20 2300 NA 137 132* K 4.1 4.5 CO2 29 21* BUN 60* 84* CREA 4.10* 5.55* EGFR 14* 10* CALCIUM 8.1* 7.8* MG 2.1 2.1 Recent Labs Lab 08/26/20 0520 08/24/20 2300 WBC 10.48 10.66 HGB 8.7* 7.9* HCT 27.3* 24.8* MCV 91.0 92.5 PLT 314 327 Recent Labs Lab 08/26/20 0520 08/25/20 1944 08/25/20 1557 08/25/20 1157 08/24/20 2302 CKMB -- 6.7* 7.5* 8.0* < > -- INR 1.1 -- -- -- -- 1.2 < > = values in this interval not displayed. Lab Results Component Value Date CHOL 119 08/25/2020 CHOL 117 07/14/2018 TRIG 67 08/25/2020 LDL 64 08/25/2020 HDL 42 08/25/2020 GLUF 250 (A) 05/29/2020 EK08/25/2020 Reviewed showed normal sinus rhythm, intraventricular delay, anterolateral T wave inversion s. Last Echo: 08/25/2020 Technically difficult study with poor acoustic windows. Left ventricle appears mildly dilated with moderately impaired systolic function EF 35 to 4 0%. Akinetic anterior, anteroseptal, septal, inferoseptal, and apical segments. Right ventricle appears moderately dilated with impaired systolic function. No pericardial effusion Last stress test: Last cath: Carotid US: AAA screening: Lower extremity US: OTHERS: ASSESSMENT & PLAN Patient is 80 y.o. with 1. Non-ST elevation OR currently chest pain-free hemodynamic stable. 2. Acute decompensated congestive heart failure. 3. Ongoing hemoptysis. 4. Ischemic cardiomyopathy. NYH class IV, stage C. 5. Stage V kidney disease requiring urgent hemodialysis. 6. Bedbound. 7. Type 2 diabetes mellitus. 8. History of cerebrovascular accident. 9. Chronic obstructive pulmonary disease. 10. Normocytic anemia possibly of chronic disease. Recommendations: Continues to have hemoptysis and received a 2 units of PRBC. Continues to be poor candidate for invasive evaluation. Recommend ENT/pulmonary evaluation to rule out malignancy prior to any invasive cardiac william luation. Consider adding low dose nitrate if hemodynamics allow. Will continue with hemodialysis. Pain management. Monitoring of respiratory status and CBC. Medical management by the hospitalist team. Code Status: Full Code Lakeisha Landry MD 08/28/2020 Danisha Reagan RN - 08/27/2020 10:04 PM PDTReport given to BAN Smith on 4RP. Pt now on 2L NC sating in the lo w 90s. Medications sent with pt and daughter updated that pt is moving. All questions and co ncerns addressed during handoff. Chart check complete. Danisha Mercer RN [employer], Jalen Hough RN - 0 08/27/2020 6:40 PM PDTA/O, off bipap al , up to chair, stand pivot with 2 person assist, HD tomorrow at 0700, if he wants to eat must have breakfast before 0630, moss out in AM per ski production supervisor, pain better controled today, bowel meds given for severe gas pain and abd xra y which showed stool, plan to d/c home with assist Friday per nephrology Electronically signed by: Jalen Saleh RN 08/27/2020 6:42 PM PDT koum, Farrukh Rubio MD - 2:10 PM PDT Hospital Problem List: Principal Problem: Acute respiratory failure with hypoxia Active Problems: Hemoptysis PAOLO (obstructive sleep apnea) COPD (chronic obstructive pulmonary disease) Anemia of chronic kidney failure, stage 5 Diabetes mellitus History of stroke Essential hypertension CKD (chronic kidney disease) stage 5, GFR less than 15 ml/min NSTEMI (non-ST elevated myocardial infarction) Acute exacerbation of CHF (congestive heart failure) The patient says that he feels 'okay' today. He denies any dizziness, cp, sob, abd pain, n /v. Leg pain is better. His urine output is low. The following portions of the patient's history were reviewed and updated as appropriate: l aboratory data, radiologic studies, allergies, current medications, and problem list. Inpatient Meds: aspirin 81 mg Oral Daily atorvaSTATin 80 mg Oral Nightly budesonide-formoterol 2 puff Inhalation RT BID clopidogrel 75 mg Oral Daily insulin glargine 25 Units Subcutaneous Nightly insulin lispro 0-6 Units Subcutaneous 4x Daily WC and HS lisinopril 2.5 mg Oral Nightly polyethylene glycol 17 g Oral Daily torsemide 40 mg Oral Daily dextrose 10% P.E. BP 122/56 | Pulse 79 | Temp 36.7 C (98.1 F) (Oral) | Resp 18 | Ht 1.727 m (5' 8") | Wt 83 kg (183 lb) | SpO2 95% | BMI 27.83 kg/m General appearance: Pleasant, not in acute distress. Lungs: Good A/E to auscultation bilaterally. There are no wheezes. Heart: Regular rate and rhythm without any rub, gallop. No murmur heard today. Abdominal exam: Soft and nontender with normal bowel sounds. Extremities: Warm to touch with 1+ leg edema. There is no cyanosis or clubbing. Neurological: Awake, alert, and oriented to time, place, and person. Normal gross motor po wer. There is no asterixis. Access: good thrill in AVF. Recent Labs 08/26/20 0520 08/24/20 2300 BUN 60* 84* CREA 4.10* 5.55* EGFR 14* 10* NA 137 132* K 4.1 4.5 CL 99 97* CO2 29 21* CALCIUM 8.1* 7.8* PHOS -- 7.4* MG 2.1 2.1 ALBUMIN -- 3.8 HGB 8.7* 7.9* HCT 27.3* 24.8* I/O last 3 completed shifts: In: 1612 [P.O.:850; Blood:762] Out: 3080 [Urine:1480] I/O this shift: In: 236 [P.O.:236] Out: - Assessment: Mr. Andujar is a 80 y.o. male patient with ESRD on HD now. First session on 08/25/20. High risk for electrolytes imbalance hypoNa Met acidosis hyperPhos At risk for severe hypoAlb Anemia in ESRD -He was admitted with "NSTEMI (non-ST elevated myocardial infarction) ([facility]) [I21.4] ESRD needing dialysis ([facility]) [N18.6, Z99.2] Hypervolemia, unspecified hypervolemia type [E87.70] Anemia of chronic renal failure, unspecified CKD stage [N18.9, D63.1] Congestive heart failure, unspecified HF chronicity, unspecified heart failure type (HCC) [ I50.9] -He presented with "Shortness of Breath (chf exacerbation[facility] Angelid neg ative two days ago ) Recommendations: There is no acute FEE CLERK indication today Plan it for MWF No IVF need Vasoactive meds as ordered PO torsemide 40 a day Monitor BP closely & frequently Reinforce lytes protocol Strict low sodium in the diet stressed Protein supplement stressed Epo 10K subQ 3qw Strict I/O & daily weights. Dose all of meds to his intermittent HD + the severely low eGFR, as he still has some RKF. Continue to avoid all kinds of nephrotoxins. Target euvolumia with a MAP>75 mmHg as possible. I discussed with the primary team the case at the time of this encounter. Farrukh Acuna MD Seven Bender, PT , DPT - 08/27/2020 10:43 AM PDT 08/27/20 1043 PT Visit Summary PT Visit Type Missed Visit (patient declined) Next Visit Information 08/27, Deconditioning PT Visit Summary Pt. reports physical capability is to stand pivot to/from chair or w/c onl y. He is currently quite anxious and reporting considerable nausea. RN aware. Pt. loco genestor however continued to decline stating "Maybe I'll try tomorrow" Me emigdio Gandhi MD - 08/27/2020 8:09 AM PDTFormatting of this note might be different from the origi nal. [facility] Service: Cardiology Progress Note Name of Beauty Sales Consultant: Lakeisha Landry MD I have seen the patient on 08/27/2020, continues to have hemoptysis. Received a second unit of PRBC. SUBJECTIVE Current Facility-Administered Medications: acetaminophen (TYLENOL) tablet 650 mg, 650 mg, Oral, Q4H PRN, Dagoberto Lloyd, DO, 650 mg a t 08/26/20 0129 albuterol 90 mcg/puff inhaler 2 puff, 2 puff, Inhalation, RT Q4H PRN, Dagoberto Lloyd, DO aspirin chewable tablet 81 mg, 81 mg, Oral, Daily, Dagoberto LloydDO benjamin, 81 mg at 08/26/20 0 906 atorvaSTATin (LIPITOR) tablet 80 mg, 80 mg, Oral, Nightly, Dagobreto Desai DO, 80 mg at 2129 budesonide-formoterol (SYMBICORT) 160-4.5 mcg/puff inhaler 2 puff, 2 puff, Inhalation, RT BID, Dagoberto LloydDO benjamin, 2 puff at 08/26/202129 clopidogrel (PLAVIX) tablet 75 mg, 75 mg, Oral, Daily, Dagoberto Desai DO, 75 mg at 09 Hypoglycemia Management, , , Until Discontinued AND POCT Glucose, , , PRN AND dextrose 50% injection 12.5-25 g, 12.5-25 g, Intravenous, PRN AND dextrose 10% (D10W) in fusion, , Intravenous, Continuous PRN, Dagoberto Desai DO docusate sodium (COLACE) capsule 100 mg, 100 mg, Oral, BID PRN, Dagoberto Desai DO insulin glargine (LANTUS SOLOSTAR) injection (pen) 25 Units, 25 Units, Subcutaneous, N ightly, Dagoberto Desai DO, 25 Units at 08/26/202129 insulin lispro (humaLOG, ADMELOG) injection (vial) 0-6 Units, 0-6 Units, Subcutaneous, 4x Daily WC and HS, Dagoberto Desai DO, 3 Units at 08/25/20 1634 lidocaine (PF) 1% injection 0.5 mL, 0.5 mL, Intradermal, Dialysis - PRN, Farrukh Acuna MD, 0.5 mL at 08/26/20 1225 lisinopril (PRINIVIL, ZESTRIL) tablet 2.5 mg, 2.5 mg, Oral, Nightly, Farrukh Acuna MD, 2.5 mg at 08/26/202129 nitroglycerin (NITROSTAT) SL tablet 0.4 mg, 0.4 mg, Sublingual, Q5 Min PRN, Dagoberto Desai DO ondansetron (ZOFRAN) injection 4-8 mg, 4-8 mg, Intravenous, Q6H PRN, Dagoberto Lloyd, DO, 4 mg at 08/27/20 0613 oxyCODONE (ROXICODONE) tablet 15 mg, 15 mg, Oral, Q4H PRN, Dagoberto Lloyd, DO, 15 mg at 0408 polyethylene glycol (MIRALAX) powder 17 g, 17 g, Oral, Daily, Dagoberto Lloyd, DO, 17 g at 08/26/20 0905 sodium chloride 0.9% (NS) bolus 100 mL, 100 mL, Intravenous, Dialysis - PRN, Farrukh richey MD torsemide (DEMADEX) tablet 40 mg, 40 mg, Oral, Daily, Farrukh Acuna MD OBJECTIVE Vital Signs: BP 125/60 | Pulse 77 | Temp 36.7 C (98 F) (Oral) | Resp 26 | Ht 1.727 m (5' 8") | Wt 83 kg (183 lb) | SpO2 96% | BMI 27.83 kg/m Intake/Output Summary (Last 24 hours) at 08/27/2020 0809 Last data filed at 08/27/2020 0616 Gross per 24 hour Intake 600 ml Output 2530 ml Net -1930 ml Cardiovascular: Regular rhythm, S1 normal and S2 normal. Pulmonary/Chest: Effort normal and breath sounds normal. No wheezes. No rales. Abdominal: Soft. No tenderness. Musculoskeletal: left BKA. Neurological: Alert. No cranial nerve deficit. Skin: Warm and dry. DATA Recent Labs Lab 08/26/20 0520 08/24/20 2300 NA 137 132* K 4.1 4.5 CO2 29 21* BUN 60* 84* CREA 4.10* 5.55* EGFR 14* 10* CALCIUM 8.1* 7.8* MG 2.1 2.1 Recent Labs Lab 08/26/20 0520 08/24/20 2300 WBC 10.48 10.66 HGB 8.7* 7.9* HCT 27.3* 24.8* MCV 91.0 92.5 PLT 314 327 Recent Labs Lab 08/26/20 0520 08/25/20 1944 08/25/20 1557 08/25/20 1157 08/24/20 2302 CKMB -- 6.7* 7.5* 8.0* < > -- INR 1.1 -- -- -- -- 1.2 < > = values in this interval not displayed. Lab Results Component Value Date CHOL 119 08/25/2020 CHOL 117 07/14/2018 TRIG 67 08/25/2020 LDL 64 08/25/2020 HDL 42 08/25/2020 GLUF 250 (A) 05/29/2020 EK08/25/2020 Reviewed showed normal sinus rhythm, intraventricular delay, anterolateral T wave inversion s. Last Echo: 08/25/2020 Technically difficult study with poor acoustic windows. Left ventricle appears mildly dilated with moderately impaired systolic function EF 35 to 4 0%. Akinetic anterior, anteroseptal, septal, inferoseptal, and apical segments. Right ventricle appears moderately dilated with impaired systolic function. No pericardial effusion Last stress test: Last cath: Carotid US: AAA screening: Lower extremity US: OTHERS: ASSESSMENT & PLAN Patient is 80 y.o. with 1. Non-ST elevation OR currently chest pain-free hemodynamic stable. 2. Acute decompensated congestive heart failure. 3. Ongoing hemoptysis. 4. Ischemic cardiomyopathy. NYH class IV, stage C. 5. Stage V kidney disease requiring urgent hemodialysis. 6. Bedbound. 7. Type 2 diabetes mellitus. 8. History of cerebrovascular accident. 9. Chronic obstructive pulmonary disease. 10. Normocytic anemia possibly of chronic disease. Recommendations: Continues to have hemoptysis and received a second unit of PRBC. Continues to be poor candidate for invasive evaluation. Consider adding low dose nitrate if hemodynamics allow. Will continue with hemodialysis. Pain management. Monitoring of respiratory status and CBC. Medical management by the hospitalist team. Code Status: Full Code Lakeisha Landry MD 08/27/2020 Praveen, Seven Valadez MD - 08/27/2020 8:04 AM PDTFormatting of this note might be different from the origi nal. 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 in [place] for increasing shortness of br eath and CHF exacerbation, patient was initially given 80 mg of Lasix in ED and sublingual n itroglycerin, and IV Solu-Medrol, patient had to be put on BiPAP and was transferred to [facility] for higher level of care, and [facility] ED the patient was noted to have ST elevations in V2 an d V3 and mild reciprocal change in lead I, ground support equipment mechanic was consulted and determined that it did not meet criteria for [facility],, and elevated troponin of 8.035, elevated CK-MB of 9.0 pa tient started on heparin drip however started to have more hemoptysis and that was stopped. Patient continues to be significantly short of breath, nephrology was consulted, and as per cardiology because of the patient's shortness of breath as well as bleeding when he got the heparin he is not a candidate for any intervention, medical management was done, the patien t had 2 units of packed RBC and [id number] dialysis, and over the course of his stay was a ble to get off BiPAP. SUBJECTIVE Events Overnight: Patient seen and examined at bedside. Overnight the patient still h ad occasional hemoptysis, she continues to be afebrile, has been able to get weaned down to 1 to 2 L by nasal cannula denies chest pain, shortness admits this feels stronger, no nausea no vomiting or diarrhea. Still with occasional hemoptysis. OBJECTIVE Vital Signs: Blood pressure 117/56, pulse 70, temperature 35.9 C (96.7 F), temperature source Oral, resp. rate 24, height 1.727 m (5' 8"), weight 83 kg (183 lb), SpO2 100 %. Physical Exam General Appearance: Alert, cooperative, on BiPAP and complaining of pain in his phantom limb, older than stated age frail looking age Head: Normocephalic, without obvious abnormality, atraumatic Eyes: PERRL, pale conjunctiva/corneas clear, EOM's intact, Ears: Normal external ear canals, both ears Nose: Nares normal, septum midline, mucosa normal, no drainage or sinus tenderness Throat: Lips, mucosa, and tongue wet, there is tonsillar enlargement bilaterally but no b leeding. Neck: Supple, symmetrical, trachea midline, no adenopathy; could be felt by me thyroid: No enlargement/tenderness/nodules; no carotid bruit or JVD Back: Symmetric, no curvature, ROM normal, no CVA tenderness Lungs: Clear to auscultation bilaterally, respirations unlabored Chest wall: No tenderness or deformity Heart: Regular rate and rhythm, S1 and S2 normal, no murmur, rub or gallop Abdomen: Soft, non-tender, bowel sounds active all four quadrants, no masses, no organomegaly Genitalia: Normal male without lesion, discharge or tenderness Extremities: Extremities left lower extremity amputation, positive arthritic changes, Pulses: 2+ and symmetric all extremities Skin: Skin color, texture, turgor normal, no rashes or lesions Lymph nodes: Cervical, supraclavicular, and axillary nodes normal Neurologic: CNII-XII intact. Normal strength, sensation and reflexes throughout DATA Recent Labs Lab 08/26/20 0520 08/25/20 1944 08/25/20 1557 08/25/20 1157 08/24/20 2302 08/24/20 2300 WBC 10.48 -- -- -- -- -- 10.66 HGB 8.7* -- -- -- -- -- 7.9* HCT 27.3* -- -- -- -- -- 24.8* PLT 314 -- -- -- -- -- 327 NA 137 -- -- -- -- -- 132* K 4.1 -- -- -- -- -- 4.5 CL 99 -- -- -- -- -- 97* CO2 29 -- -- -- -- -- 21* ANIONGAP 13 -- -- -- -- -- 19 BUN 60* -- -- -- -- -- 84* CREA 4.10* -- -- -- -- -- 5.55* GLU 105* -- -- -- -- -- 162* CALCIUM 8.1* -- -- -- -- -- 7.8* TP -- -- -- -- -- -- 6.2* ALBUMIN -- -- -- -- -- -- 3.8 BNP -- -- -- -- -- -- 2,431.10* PHOS -- -- -- -- -- -- 7.4* MG 2.1 -- -- -- -- -- 2.1 BILI -- -- -- -- -- -- 0.4 AST -- -- -- -- -- -- 22 ALT -- -- -- -- -- -- 12 ALKPHOS -- -- -- -- -- -- 86 CKMB -- 6.7* 7.5* 8.0* < > -- -- INR 1.1 -- -- -- -- 1.2 -- < > = values in this interval not displayed. No results for input(s): COLORUA, CLARITYUA, SPECGRAVU, LEUKEST, NITRITEUA, UUROB, URINEPRO TEIN, LABPH, BLOODUA, KETONESUA, BILIRUBINUA, GLUCOSEU, WBCUA, RBCUA, SQUAMEPIUA, BACTERIAUA , MUCUSUA, CRYSTALUA in the last 168 hours. No results found. PROBLEM LIST/IMPRESSION/PLAN: Principal Problem: Acute respiratory failure with hypoxia now improved continue with O2, BiPAP when sleep ing, Active Problems: CKD (chronic kidney disease) stage 5, GFR less than 15 ml/min nephrology on consult gilberto nue dialysis as per nephrology and Demadex 40 mg oral daily,fluid restriction 1200 mL daily NSTEMI (non-ST elevated myocardial infarction)/ acute exacerbation of CHF (congestive hea rt failure) Lipitor 80 mg daily, aspirin 81 mg daily clopidogrel 75 mg oral daily, lisinop ril 2.5 mg orally daily and if hemodynamics allow low-dose nitrate. PAOLO (obstructive sleep apnea) on BiPAP COPD (chronic obstructive pulmonary disease) not in exacerbation aspirin 81 mg daily Li pitor 80 mg daily Anemia of chronic kidney failure, stage 5/anemia also secondary to the patient's hemoptys is from possible tonsillar mass will discuss again with tomorrow if the patient co ntinues to improve.josh Diabetes mellitus Lantus 25units nightly and insulin sliding scale History of stroke no stroke now will try to control factors for stroke Essential hypertension patient with soft blood pressures, for now will continue with l isinopril 2.5 mg orally daily, adjust if needed Disposition: Pending course Labs pending: BMP electrolytes Radiology studies pending: None Cultures pending: None Code Status: Full code discussed extensively with patient and daughter today, including what will happen if he goes into cardiac arrest including broken bones due to compression, a s well as his medical fragility because of his chronic medical conditions, the patient still wanted to be full code including antiarrhythmics, chest compressions, electric shock, and m echanical ventilation. Discussed this with daughter who agreed with the patient's decision. She can make the decision for him and is not able to make the decision. I explained radiology and lab findings and plan of care to patient and daughter Moriah at [phone] and [phone] they verbalized understanding and agreement and had no more questio ns for me after my interaction with them. More than 35 minutes spent directly face to face w ith patient and more than 65% spent for physical examination and discussing plan of care an d counseling about patient illness with patient and relatives at bedside, on chart review, c oordinating care with other providers, formulating a plan of care and management as well as Computerized Physician Melt House Centrifugal Operator. Dictation software, [employer], used which may contain error for similar sounding words even af ter review. Portions of this chart may have been copied from previous notes for continuity of care. Seven Shaw MD, FACP, FAAP 08/27/2020 Jalen Manriquez RN - 08/26/2020 1:41 PM PDTA/Ox4, VSS (BP remain soft), HD today, 1 unit PRBC given today, remains on bipap, able to tolerate short periods off bipap without dramatic yossi nges in o2 sats but pt feels more comfortable on bipap and decreases WOB, pt complains of le ft residual limb/phantom limb pain, oxy held for BP<110 systolic per order, turning frequent ly for blanchable redness to coccyx, right heel pressure injury (off loading boot applied), pressure injury right upper back (foam dressing placed), waffle mattress placed, pup in plac e for coccyx redness Rita klein, Seven Valadez MD - 08/26/2020 8:46 AM PDTFormatting of this note might be differen t from the original. Porfirio Benavidesral [phone] Hospital Day: 1 SUBJECTIVE Events Overnight: Patient seen and examined at bedside. Overnight the patient still h ad occasional hemoptysis, still on BiPAP, had 1 unit of packed RBC with dialysis yesterday, was complaining of severe pain painOn his phantom limb last night, however patient's blood p ressure has been soft and could not give his 15 mg of oxycodone. Echocardiogram done yester day showed EF 35 to 40% and kinetic anterior, anteroseptal, septal, inferoseptal and apical segments with right ventricle moderately dilated with impaired systolic function. Discussed with patient again about whether he wants pain began and we do not worry about hi s blood pressure his breathing or his heart rate and the patient elected to be full code, he was willing to have CPR, antiarrhythmics, cardioversion, intubation and artificial ventilat ion, he asked me how long he could be on the ventilator I told him that it was going to be u p to him whether he wanted to be on the ventilator for 3 days and then if he does not breath e on his own he can go or he wants to be on the ventilator as long as he can recognize peopl e, when I asked him about that he just shrugged his shoulders and I told him to think about that, I also discussed this with the patient's daughter Moriah and she agreed with the patien t's wishes. OBJECTIVE Vital Signs: Blood pressure 114/54, pulse 69, temperature 36.6 C (97.9 F), temperature source Axilla ry, resp. rate 20, height 1.727 m (5' 8"), weight 85 kg (187 lb 6.3 oz), SpO2 90 %. Physical Exam General Appearance: Alert, cooperative, on BiPAP and complaining of pain in his phantom limb, older than stated age frail looking age Head: Normocephalic, without obvious abnormality, atraumatic Eyes: PERRL, pale conjunctiva/corneas clear, EOM's intact, Ears: Normal external ear canals, both ears Nose: Nares normal, septum midline, mucosa normal, no drainage or sinus tenderness Throat: Lips, mucosa, and tongue wet, there is tonsillar enlargement bilaterally but no b leeding. Neck: Supple, symmetrical, trachea midline, no adenopathy; could be felt by me thyroid: No enlargement/tenderness/nodules; no carotid bruit or JVD Back: Symmetric, no curvature, ROM normal, no CVA tenderness Lungs: Clear to auscultation bilaterally, respirations unlabored Chest wall: No tenderness or deformity Heart: Regular rate and rhythm, S1 and S2 normal, no murmur, rub or gallop Abdomen: Soft, non-tender, bowel sounds active all four quadrants, no masses, no organomegaly Genitalia: Normal male without lesion, discharge or tenderness Extremities: Extremities left lower extremity amputation, positive arthritic changes, Pulses: 2+ and symmetric all extremities Skin: Skin color, texture, turgor normal, no rashes or lesions Lymph nodes: Cervical, supraclavicular, and axillary nodes normal Neurologic: CNII-XII intact. Normal strength, sensation and reflexes throughout DATA Recent Labs Lab 08/26/20 0520 08/25/20 1944 08/25/20 1557 08/25/20 1157 08/24/20 2302 08/24/20 2300 WBC 10.48 -- -- -- -- -- 10.66 HGB 8.7* -- -- -- -- -- 7.9* HCT 27.3* -- -- -- -- -- 24.8* PLT 314 -- -- -- -- -- 327 NA 137 -- -- -- -- -- 132* K 4.1 -- -- -- -- -- 4.5 CL 99 -- -- -- -- -- 97* CO2 29 -- -- -- -- -- 21* ANIONGAP 13 -- -- -- -- -- 19 BUN 60* -- -- -- -- -- 84* CREA 4.10* -- -- -- -- -- 5.55* GLU 105* -- -- -- -- -- 162* CALCIUM 8.1* -- -- -- -- -- 7.8* TP -- -- -- -- -- -- 6.2* ALBUMIN -- -- -- -- -- -- 3.8 BNP -- -- -- -- -- -- 2,431.10* PHOS -- -- -- -- -- -- 7.4* MG 2.1 -- -- -- -- -- 2.1 BILI -- -- -- -- -- -- 0.4 AST -- -- -- -- -- -- 22 ALT -- -- -- -- -- -- 12 ALKPHOS -- -- -- -- -- -- 86 CKMB -- 6.7* 7.5* 8.0* < > -- -- INR 1.1 -- -- -- -- 1.2 -- < > = values in this interval not displayed. No results for input(s): COLORUA, CLARITYUA, SPECGRAVU, LEUKEST, NITRITEUA, UUROB, URINEPRO TEIN, LABPH, BLOODUA, KETONESUA, BILIRUBINUA, GLUCOSEU, WBCUA, RBCUA, SQUAMEPIUA, BACTERIAUA , MUCUSUA, CRYSTALUA in the last 168 hours. No results found. PROBLEM LIST/IMPRESSION/PLAN: Principal Problem: Acute respiratory failure with hypoxia continue BiPAP, will have to continue dialysis a s discussed with Dr. acuna, will give another unit of packed RBC during dialysis today, Active Problems: CKD (chronic kidney disease) stage 5, GFR less than 15 ml/min nephrology on consult NSTEMI (non-ST elevated myocardial infarction) as discussed with Dr. Lopez of card iology cannot do any that will require anticoagulant as he he had hemoptysis yesterday with heparin, Plavix 75 mg daily lisinopril 2.5 mg oral daily, per Dr. Lopez patient should n ot have midodrine. However because of the low blood pressure earlier and the patient compla ining of pain will give midodrine 2.5 mg once and then will give his oxycodone. Acute exacerbation of CHF (congestive heart failure) Demadex 40 mg daily fluid restric tion 1200 mL daily PAOLO (obstructive sleep apnea) on BiPAP COPD (chronic obstructive pulmonary disease) not in exacerbation aspirin 81 mg daily Li pitor 80 mg daily Anemia of chronic kidney failure, stage 5/anemia also secondary to the patient's hemoptys is from possible tonsillar mass I discussed this with Dr. velazquez of ENT yesterday, given t he patient's fragility and the hemoptysis not being massive or occurring only every now and then he did not think it was worth the risk to have to go in and try to find out where the b leeding mass or do cautery or try to remove the mass. Once patient is more stable I can kyrie l him and he will determine if he can go and look at where the bleeding might be coming from . Discussed this with daughter and patient and agreeable to this. Diabetes mellitus Lantus 25units nightly and insulin sliding scale History of stroke no stroke now will try to control factors for stroke Essential hypertension patient with soft blood pressures, for now will continue with l isinopril 2.5 mg orally daily, adjust if needed Disposition: Pending course Labs pending: BMP electrolytes Radiology studies pending: None Cultures pending: None Code Status: Full code discussed extensively with patient and daughter today, including what will happen if he goes into cardiac arrest including broken bones due to compression, a s well as his medical fragility because of his chronic medical conditions, the patient still wanted to be full code including antiarrhythmics, chest compressions, electric shock, and m echanical ventilation. Discussed this with daughter who agreed with the patient's decision. She can make the decision for him and is not able to make the decision. I explained radiology and lab findings and plan of care to patient and daughter Moriah at [phone] and [phone] they verbalized understanding and agreement and had no more questio ns for me after my interaction with them. More than 35 minutes spent directly face to face w ith patient and more than 65% spent for physical examination and discussing plan of care an d counseling about patient illness with patient and relatives at bedside, on chart review, c oordinating care with other providers, formulating a plan of care and management as well as Computerized Physician Melt House Centrifugal Operator. Dictation software, [employer]IM[employer], used which may contain error for similar sounding words even af ter review. Portions of this chart may have been copied from previous notes for continuity of care. Seven Shaw MD, FACP, FAAP 08/26/2020 ls Lakeisha matamoros MD - 08/26/2020 7:19 AM PDT [facility] Service: Cardiology Progress Note Name of Beauty Sales Consultant: Lakeisha Landry MD I have seen the patient on 08/26/2020, continues to have hemoptysis. Received one unit of GA BC. SUBJECTIVE Current Facility-Administered Medications: acetaminophen (TYLENOL) tablet 650 mg, 650 mg, Oral, Q4H PRN, Dagoberto Lloyd, DO, 650 mg a t 08/26/20 0129 albuterol 90 mcg/puff inhaler 2 puff, 2 puff, Inhalation, RT Q4H PRN, Dagoberto Lloyd, DO aspirin chewable tablet 81 mg, 81 mg, Oral, Daily, Dagoberto Lloyd, DO, 81 mg at 08/26/20 0 906 atorvaSTATin (LIPITOR) tablet 80 mg, 80 mg, Oral, Nightly, Dagoberto Lloyd, DO, 80 mg at 2026 budesonide-formoterol (SYMBICORT) 160-4.5 mcg/puff inhaler 2 puff, 2 puff, Inhalation, RT BID, Dagoberto Lloyd, DO, 2 puff at 08/26/20 0905 clopidogrel (PLAVIX) tablet 75 mg, 75 mg, Oral, Daily, Dagoberto Lloyd, DO, 75 mg at 0906 Hypoglycemia Management, , , Until Discontinued AND POCT Glucose, , , PRN AND dextrose 50% injection 12.5-25 g, 12.5-25 g, Intravenous, PRN AND dextrose 10% (D10W) in fusion, , Intravenous, Continuous PRN, Dagoberto Lloyd, DO docusate sodium (COLACE) capsule 100 mg, 100 mg, Oral, BID PRN, Dagoberto Lloyd, DO furosemide (LASIX) injection 80 mg, 80 mg, Intravenous, Daily, Dagoberto Lloyd, DO, 80 mg a t 08/26/20 0905 insulin glargine (LANTUS SOLOSTAR) injection (pen) 25 Units, 25 Units, Subcutaneous, N ightly, Dagoberto Lloyd, DO, 25 Units at 08/25/202034 insulin lispro (humaLOG, ADMELOG) injection (vial) 0-6 Units, 0-6 Units, Subcutaneous, 4x Daily WC and HS, Dagoberto Crouchs, DO, 3 Units at 08/25/20 1634 nitroglycerin (NITROSTAT) SL tablet 0.4 mg, 0.4 mg, Sublingual, Q5 Min PRN, [facility] , ondansetron (ZOFRAN) injection 4-8 mg, 4-8 mg, Intravenous, Q6H PRN, [facility], oxyCODONE (ROXICODONE) tablet 15 mg, 15 mg, Oral, Q4H PRN, [facility], , 15 mg at 2025 oxyCODONE (ROXICODONE) tablet 5 mg, 5 mg, Oral, Once, Seven Shaw MD, Sto pped at 08/26/20 0906 polyethylene glycol (MIRALAX) powder 17 g, 17 g, Oral, Daily, [facility], , 17 g at 08/26/20 0905 sodium chloride 0.9% (NS) bolus 100 mL, 100 mL, Intravenous, Dialysis - PRN, Farrukh richey MD OBJECTIVE Vital Signs: BP 114/54 | Pulse 69 | Temp 36.6 C (97.9 F) (Axillary) | Resp 20 | Ht 1.727 m (5' 8 ") | Wt 85 kg (187 lb 6.3 oz) | SpO2 90% | BMI 28.49 kg/m Intake/Output Summary (Last 24 hours) at 08/26/2020 0912 Last data filed at 08/26/2020 0400 Gross per 24 hour Intake 1162 ml Output 800 ml Net 362 ml Cardiovascular: Regular rhythm, S1 normal and S2 normal. Pulmonary/Chest: Effort normal and breath sounds normal. No wheezes. No rales. Abdominal: Soft. No tenderness. Musculoskeletal: left BKA. Neurological: Alert. No cranial nerve deficit. Skin: Warm and dry. DATA Recent Labs Lab 08/26/20 0520 08/24/20 2300 NA 137 132* K 4.1 4.5 CO2 29 21* BUN 60* 84* CREA 4.10* 5.55* EGFR 14* 10* CALCIUM 8.1* 7.8* MG 2.1 2.1 Recent Labs Lab 08/26/20 0520 08/24/20 2300 WBC 10.48 10.66 HGB 8.7* 7.9* HCT 27.3* 24.8* MCV 91.0 92.5 PLT 314 327 Recent Labs Lab 08/26/20 0520 08/25/20 1944 08/25/20 1557 08/25/20 1157 08/24/20 2302 CKMB -- 6.7* 7.5* 8.0* < > -- INR 1.1 -- -- -- -- 1.2 < > = values in this interval not displayed. Lab Results Component Value Date CHOL 119 08/25/2020 CHOL 117 07/14/2018 TRIG 67 08/25/2020 LDL 64 08/25/2020 HDL 42 08/25/2020 GLUF 250 (A) 05/29/2020 EK08/25/2020 Reviewed showed normal sinus rhythm, intraventricular delay, anterolateral T wave inversion s. Last Echo: 08/25/2020 Technically difficult study with poor acoustic windows. Left ventricle appears mildly dilated with moderately impaired systolic function EF 35 to 4 0%. Akinetic anterior, anteroseptal, septal, inferoseptal, and apical segments. Right ventricle appears moderately dilated with impaired systolic function. No pericardial effusion Last stress test: Last cath: Carotid US: AAA screening: Lower extremity US: OTHERS: ASSESSMENT & PLAN Patient is 80 y.o. with 1. Non-ST elevation OR currently chest pain-free hemodynamic stable. 2. Acute decompensated congestive heart failure. 3. Ongoing hemoptysis. 4. Ischemic cardiomyopathy. LAH class IV, stage C. 5. Stage V kidney disease requiring urgent hemodialysis. 6. Bedbound. 7. Type 2 diabetes mellitus. 8. History of cerebrovascular accident. 9. Chronic obstructive pulmonary disease. 10. Normocytic anemia possibly of chronic disease. Recommendations: Reviewed echocardiogram with the patient. At this time continues to be poor candidate for invasive evaluation. Discussion in regard to code status is on going. At this time blood pressure won't allow any anginal or medical therapy for cardiomyopathy. Will continue with hemodialysis. Pain management. Monitoring of respiratory status and CBC. Medical management by the hospitalist debbie. Code Status: Full Code Lakeisha Landry MD 08/26/2020 Jalen Lopez RN - 08/25/2020 5:59 PM PDTA/Ox4, VSS, remains on BiPAP, desats to 70s on room air, tolerated nasal cannula at 6L for meals, no cardiac related pain this shift, turning frequently and ap plying zinc cream and utilizing waffle pad for blanchable redness to coccyx, diet advanced t o cardiac/renal with 1.2L FR, oxycodone given x2 for left residual limb pain (chronic)Electr onically signed by Jalen Saleh RN at 08/25/2020 6:02 PM Mikey Bazan RN - 2019 4:35 AM PDTPt report received from BAN Levy (ED). Pt transferred via stretcher to 912 0 on Heparin gtt. VS stable (SBP 90-100's, SpO2 93%, HR 70-80's). Pt on BiPap, transferred well with 4-5L O2/oxymask with RT at bedside. documented in this encounter H&P Notes Dagoberto Desai DO - 08/25/2020 5:44 AM PDTFormatting of this note might be different from richard harley. [facility] Service: Hospitalist Admission History & Physical Pt: Porfirio Andujar AGE/SEX: 80 y.o. male ROOM: 9120/9120-01 PCP: Jessenia Bergman : 1940 TODAY'S DATE: 08/25/2020 Date of Admission: 08/24/2020 Chief Complaint: SOB History of Present Illness: The patient is a 80 y.o. male with extensive past medical history of including CHF, COPD, t ype 2 diabetes, dyslipidemia, hyper lipidemia, hypertension, iron deficiency anemia, obstruc tive sleep apnea, left lower extremity amputation, and history of stroke presented to the [facility] in [facility] for evaluation of shortness of breath. [place] santiago had recently been admitted to the hospital there for CHF exacerbation and discharged 2 days prior. Patient reports that he has been having dyspnea on exertion for the last ella h or 2 as well. In addition to patient's shortness of breath he reports some chest pressure . Additionally patient reports decreasing urine output. Mild emergency department there patient underwent chest x-ray which showed progression of p ulmonary edema with moderate right and small left pleural effusions. Labs are significant f or elevated BUN at 86 and creatinine at 5.66. As well as anemia with hemoglobin of 8.6. Carlos Enrique mott was given 80 mg of IV Lasix as well as sublingual nitro glycerin there. Additionally patient was given IV Solu-Medrol. Due to the patient's significant respiratory failure, paula antunez required BiPAP for proper oxygenation. Due to the patient's difficulty in diuresis it was felt that patient needed transfer to higher level of care. Dr. Acuna was contacted and is willing to see patient in consultation. Patient was then transferred to [facility] ER. In the [facility] emergency department patient was noted to have elevated troponin at 8. EKG d emonstrated ST elevations in V2 and V3 with mild reciprocal change in lead I. Dr. Abdifatah hough as contacted and reviewed EKG and determined that it did not meet requirements for STEMI. PMHx: Past Medical History: Diagnosis Date Arthritis Cardiovascular [...] Renal insufficiency Stroke (HCC) Stump pain (HCC) PSHx: Past Surgical History: Procedure Laterality Date ABOVE KNEE AMPUTATION Left AMPUTATION Above knee amputation of Left Lower extremity AV FISTULA INSERTION Right 09/10/2019 Procedure: INSERTION AV FISTULA (Right BBF); Surgeon: Brian Orosco MD; [place] [facility] [facility] [place] CHOLECYSTECTOMY COLONOSCOPY HIATAL HERNIA REPAIR LEG SURGERY x2 on stump of amputated leg OTHER SURGICAL HISTORY CATARACT EXTRACTION BILATERAL PANCREAS SURGERY tumor removal Prior To admission Meds: Prior to Admission medications Medication Sig Start Date End Date Taking? Authorizing Provider albuterol 2.5 mg/3 mL nebulizer solution Take 2.5 mg by nebulization every 6 hours as neede d for Wheezing. Historical ProviderMD albuterol-ipratropium (DUONEB) 2.5-0.5 mg/3 mL SOLN Take 3 mLs by nebulization Before break fast, dinner and bedtime. Historical Provider, aluminum & magnesium hydroxide-simethicone (MAALOX PLUS DOUBLE STRENGTH) 400-400-40 mg/5 mL suspension Take 15 mLs by mouth every 4 hours as needed for Indigestion. Historical Prov iderMD amLODIPine (NORVASC) 5 mg tablet Take 1 tablet by mouth Daily. 10/04/19 Farrukh Acuna MD aspirin 81 mg chewable tablet Take 81 mg by mouth Daily. Historical ProviderMD atorvaSTATin (LIPITOR) 80 MG tablet Take 80 mg by mouth nightly. Historical ProviderMD calcitriol (ROCALTROL) 0.25 mcg capsule Take 1 capsule by mouth Daily. 08/18/19 Farrukh arellano MD CHOLECALCIFEROL PO Take 1 tablet by mouth Daily. Historical Provider, clopidogrel (PLAVIX) 75 mg tablet Take 75 mg by mouth Daily. Historical Provider, cyanocobalamin (VITAMIN B-12) 1000 MCG tablet Take 1,000 mcg by mouth every 14 days. His torical Provider, darbepoetin amarjit (ARANESP, ALBUMIN FREE,) 100 mcg/0.5 mL injection Inject 0.5 mLs under the skin Every 28 days. 07/27/20 Farrukh Acuna MD docusate-senna (SENOKOT-S) 50-8.6 mg per tablet Take 2 tablets by mouth Daily. Historica l ProviderMD doxepin (SINEQUAN) 10 mg capsule 50 mg. 05/31/19 Historical Provider, ferrous sulfate 324 (65 Fe) MG EC tablet Take 65 mg of iron by mouth 4 times daily with bel garzon. Historical Provider, insulin aspart (NOVOLOG PENFILL) 100 units/mL injection cartridge Inject under the skin 3 times daily (before meals). Per following sliding scale: 151 200 = 2 units, 201-250 = 4 un its, 251 300 = 6 units, 301 350 = 8 units, greater than 350 = 10 units and call M.D. Historical Provider, ipratropium (ATROVENT) 500 mcg/2.5 mL nebulizer solution Take 0.5 mg by nebulization 4 (fou r) times daily. Historical Provider, MD TORRES SOLOSTAR 100 UNIT/ML injection (pen) Inject 25 Units under the skin nightly. 05/19/19 Historical Provider, LINZESS 145 MCG capsule 05/20/19 Historical Provider, lisinopril (PRINIVIL, ZESTRIL) 10 mg tablet 06/04/19 Historical Provider, Magnesium 65 MG TABS Take 1 tablet by mouth Daily. Historical Provider, omeprazole (PRILOSEC) 20 mg capsule Take 20 mg by mouth Daily. 08/02/20 Historical Provider , ondansetron (ZOFRAN ODT) 8 mg disintegrating tablet 06/18/19 Historical Provider, ONE TOUCH ULTRA TEST strip USE TO TEST BLOOD SUGAR five times a day 06/01/19 Historical Pro vider, oxyCODONE (ROXICODONE) 15 mg immediate release tablet Take 15 mg by mouth every 4 hours. Historical Provider, oxygen Inhale 4 L into the lungs as needed (If napping or having increased pain during the day). Historical Provider, polyethylene glycol (MIRALAX) packet Take 17 g by mouth Daily. Historical Provider, sodium bicarbonate 650 mg tablet take 1 tablet by mouth four times a day 05/05/20 Farrukh richey MD torsemide (DEMADEX) 20 mg tablet Take 2 tablets by mouth Daily. 03/14/20 Farrukh Acuna MD TRELEGY ELLIPTA 100-62.5-25 MCG/INH inhaler inhale 1 puff by mouth once daily 02/15/20 His torical Provider, VENTOLIN HFA 108 (90 Base) MCG/ACT inhaler inhale 2 puffs by mouth every 4 hours if needed for shortness of breath 03/03/19 Historical Provider, Medications scheduled: aspirin 81 mg Oral Daily atorvaSTATin 80 mg Oral Nightly clopidogrel 75 mg Oral Daily insulin glargine 25 Units Subcutaneous Nightly insulin lispro 0-6 Units Subcutaneous 4x Daily WC and HS polyethylene glycol 17 g Oral Daily sodium bicarbonate 650 mg Oral 4x Daily Allergies: Allergies Allergen Reactions Trazodone Hallucination Family Hx: Family History Problem Relation Age of Onset Hypertension Mother Cancer Father Heart disease Father Hypertension Brother [place] hypertherm Neg Hx Social Hx: Social History Tobacco Use Smoking status: Current Every Day Smoker Packs/day: 0.25 Years: 59.00 Pack years: 14.75 Last attempt to quit: 09/27/2019 Years since quittin.9 Smokeless tobacco: Never Used Substance Use Topics Alcohol use: No Review of Symptoms: Constitutional: Negative for fever, chills, diaphoresis, activity change, appetite change, fatigue and unexpected weight change. HENT: Negative for hearing loss, ear pain, nosebleeds, congestion, facial swelling, rhinorr hea, neck pain, neck stiffness, dental problem, tinnitus and ear discharge. Eyes: Negative for photophobia, pain, discharge, redness, itching and visual disturbance. Respiratory: Negative for apnea, cough, chest tightness, shortness of breath and wheezing. Cardiovascular: Negative for chest pain, palpitations and leg swelling. Gastrointestinal: Negative for nausea, vomiting, abdominal pain, diarrhea, constipation, bl ood in stool, abdominal distention, anal bleeding and rectal pain. Genitourinary: Negative for dysuria, frequency, hematuria, flank pain, difficulty urinating and dyspareunia. Musculoskeletal: Negative for back pain, joint swelling, arthralgias and gait problem. Skin: Negative for color change, pallor, rash and wound. Neurological: Negative for dizziness, tremors, seizures, syncope, weakness, light-headednes s, numbness and headaches. Hematological: Negative for adenopathy. Does not bruise/bleed easily. Psychiatric/Behavioral: Negative for suicidal ideas, hallucinations, behavioral problems, c onfusion and agitation. Objective: Vital Signs: BP 101/53 | Pulse 77 | Temp 36.4 C (97.6 F) (Oral) | Resp 13 | Ht 1.727 m (5' 8") | Wt 85 kg (187 lb 6.3 oz) | SpO2 (!) 89% Comment: while answering questions, before going back on BiPap | BMI 28.49 kg/m Physical Exam: Constitutional: Oriented to person, place, and time. appears well-developed and well-nouris hed. HEENT: Head: Normocephalic and atraumatic. Nose: Nose normal. Mouth/Throat: Oropharynx is clear and moist. Eyes: Conjunctivae and EOM are normal. Pupils are equal, round, and reactive to light. Righ t eye exhibits no discharge. Left eye exhibits no discharge. No scleral icterus. Neck: Normal range of motion. Neck supple. No JVD present. No tracheal deviation present. N o thyromegaly present. no cervical adenopathy. Cardiovascular: Normal rate, regular rhythm, normal heart sounds with S1 and S2, and intact distal pulses. Exam reveals no gallop and no friction rub. No murmur heard. Pulmonary/Chest: Patient on BiPAP, no respiratory distress. No stridor. no wheezes. no ral es. exhibits no tenderness. Abdominal: Soft. Bowel sounds are normal. exhibits no distension and no mass. There is no t enderness. There is no rebound and no guarding. Extremities/Musculoskeletal: Normal range of motion.exhibits no tenderness. Mild edema in right lower extremity. Left lower extremity amputation noted. Neurological: Alert and oriented to person, place, and time. Has normal reflexes. display s normal reflexes. No cranial nerve deficit. Exhibits normal muscle tone. Coordination norm al. Skin: Skin is warm and dry. No rash noted. No erythema. No pallor. Psychiatric: Has a normal mood and affect. Behavior is normal. Judgment normal. Data: CBC: Lab Results Component Value Date WBC 10.66 08/24/2020 RBC 2.68 (L) 08/24/2020 RBC 4 07/19/2019 HGB 7.9 (L) 08/24/2020 HCT 24.8 (L) 08/24/2020 MCV 92.5 08/24/2020 MCV 84.1 07/19/2019 MCH 29.5 08/24/2020 MCHC 31.9 (L) 08/24/2020 RDW 16 (A) 05/29/2020 PLT 327 08/24/2020 MPV 10.5 08/24/2020 DIFFTYPE AUTOMATED 08/24/2020 CMP: Lab Results Component Value Date NA 132 (L) 08/24/2020 K 4.5 08/24/2020 CL 97 (L) 08/24/2020 CO2 21 (L) 08/24/2020 CO2 29 08/24/2019 ANIONGAP 19 08/24/2020 GLUF 250 (A) 05/29/2020 BUN 84 (H) 08/24/2020 GLOB 2.8 10/10/2019 AGRATIO 1.6 08/24/2020 BILITOT 0.4 02/15/2019 AST 22 08/24/2020 ALT 12 08/24/2020 EGFR 10 (L) 08/24/2020 IMAGING: Xr Chest Ap Portable Result Date: 08/24/2020 [...] Gutierrez James Sign Date/Time: 2019 11:28 PM EKG: Normal sinus rhythm, ST elevations in V2 and V3, with ST depressions in lead I. Problem List: Principal Problem: NSTEMI (non-ST elevated myocardial infarction) Active Problems: PAOLO (obstructive sleep apnea) COPD (chronic obstructive pulmonary disease) Diabetes mellitus History of stroke Essential hypertension CKD (chronic kidney disease) stage 5, GFR less than 15 ml/min Acute respiratory failure with hypoxia Acute exacerbation of CHF (congestive heart failure) Assessment and Plan: This is a very complex patient with multiple system failure, including kidneys, heart as we ll as respiratory failure. It appears patient has multiple acute problems, including NSTEMI , acute CHF exacerbation, new end-stage renal disease and hemoptysis. NSTEMI -in setting of acute CHF exacerbation as well as worsening renal failure. Troponin elevated at 8.035, with ST elevations in V2 and V3. Does not meet STEMI criteria. EKG revi ewed by Dr. Gardiner. Patient reports chest pressure as well as significant shortness of jose ath and in respiratory failure. BNP 2,431.1. Recent echocardiogram on record is from 2015 shows EF from 65 to 70%. Patient placed on heparin drip in the emergency department. Admit inpatient Due to hemoptysis, will DC heparin drip. We will trend troponin Cardiology consult in the morning Repeat EKG in the morning Monitor for further symptoms. We will get A1c and lipid panel Continue aspirin, Plavix, and atorvastatin Holding lisinopril for hypertension and renal disease. Hemoptysis apparently patient has been having hemoptysis for several months, has not bee n evaluated for this. Patient had episode in the hospital. We will stop heparin drip Will need CT chest, abdomen pelvis, however will need discussion with nephrology first as will need to be a contrast study. Monitor closely Acute CHF exacerbation most recent echo in our records was in 2016 which showed preserve d ejection fraction. Unknown current status. Apparently patient recently admitted to [facility] for CHF exacerbation. Patient in worsening renal failure, difficult with diuresis. Nephrology consulted, possible dialysis for diuresis. We will continue with IV diuresis at 80 mg IV daily of Lasix, however appreciate recomm endations from nephrology. Moss catheter placed as it appeared the patient was retaining urine. Monitor renal function closely We will get records from [facility] Stage V versus end-stage renal disease patient having worsening renal function. Has had dialysis previously, however currently not on dialysis. Fluid overloaded. Nephrology consulted, appreciate recommendations and care May need dialysis Monitor renal function closely Type 2 diabetes unknown control Continue home dose of Lantus 25 units nightly Sliding scale insulin Fingerstick glucose monitoring Hypoglycemia protocol History of stroke currently stable Continue antiplatelet therapy as well as atorvastatin COPD Continue albuterol inhaler We will start Symbicort as patient's inhalers not on formulary. DVT prophylaxis We will hold off chemical anticoagulation at this point due to hemoptysis. Patient's old records and labs were reviewed in detail. Code Status: Full Code -discussed at length with patient. Primary Care Physician: Jessenia Desai DO 08/25/2020 6:01 AM PDT documented in this encoun ter Procedure Notes Farrukh Acuna MD - 08/30/2020 12:00 PM PDT Hospital Problem List: Principal Problem: Acute respiratory failure with hypoxia Active Problems: Hemoptysis PAOLO (obstructive sleep apnea) COPD (chronic obstructive pulmonary disease) Anemia of chronic kidney failure, stage 5 Diabetes mellitus History of stroke Essential hypertension CKD (chronic kidney disease) stage 5, GFR less than 15 ml/min NSTEMI (non-ST elevated myocardial infarction) Acute exacerbation of CHF (congestive heart failure) Encounter date & initial notes made per the date & time stamp above. Documentation started in Epic then completed at a later time. The patient is seen & examined during dialysis. He says that he feels 'fine' today. He den ies any dizziness, cp, sob, abd pain, n/v. Leg pain is better. The following portions of the patient's history were reviewed and updated as appropriate: l aboratory data, allergies, current medications, and problem list. Current Meds: aspirin 81 mg Oral Daily atorvaSTATin 80 mg Oral Nightly budesonide-formoterol 2 puff Inhalation RT BID clopidogrel 75 mg Oral Daily epoetin amarjit-epbx 10,000 Units Subcutaneous Weekly heparin 1,500-6,000 Units Intracatheter After each dialysis insulin glargine 13 Units Subcutaneous Nightly insulin lispro 0-6 Units Subcutaneous 4x Daily WC and HS isosorbide mononitrate 30 mg Oral Daily lisinopril 2.5 mg Oral Nightly polyethylene glycol 17 g Oral Daily torsemide 40 mg Oral Daily dextrose 10% P.E. BP 113/53 | Pulse 77 | Temp 36.8 C (98.2 F) (Oral) | Resp 18 | Ht 1.727 m (5' 8") | Wt 79.8 kg (176 lb) | SpO2 96% | BMI 26.76 kg/m General appearance: Pleasant, no acute distress. Lungs: Good A/E to auscultation bilaterally. There are no wheezes. Heart: Regular rate and rhythm without any rub, gallop. Faint systolic murmur at the LSB. Abdominal exam: Soft and nontender with normal bowel sounds. Extremities: Warm to touch with trace leg edema. There is no cyanosis. Neurological: Awake, alert, and oriented to time, place, and person. Normal gross motor po wer. There is no asterixis. Access: right AV fistula with a good flow. Recent Labs 08/30/20 0401 08/28/20 0937 BUN 42* 36* CREA 3.61* 2.64* EGFR 16* 23* NA 137 138 K 4.3 3.8 CL 103 103 CO2 26 30 CALCIUM 7.7* 7.3* ALBUMIN -- 3.3 HGB 9.6* 9.6* HCT 31.0* 29.4* I/O last 3 completed shifts: In: 480 [P.O.:480] Out: 2525 [Urine:525] No intake/output data recorded. Assessment: Mr. Andujar is a 80 y.o. male patient with ESRD on HD now. First session today. High risk for electrolytes imbalance hypoNa Met acidosis hyperPhos At risk for severe hypoAlb Anemia in ESRD Tolerating dialysis well. Access: no issues. Complications identified during his dialysis treatment: None. Recommendations: UF: as tolerated. WALESKA 10K subQ weekly. Renal diet restrictions stressed. Next dialysis treatment is MWF per the submitted pre-vanegas orders. Farrukh Acuna MD koum, Farrukh Rubio MD - 11:30 AM PDT Hospital Problem List: Principal Problem: Acute respiratory failure with hypoxia Active Problems: Hemoptysis PAOLO (obstructive sleep apnea) COPD (chronic obstructive pulmonary disease) Anemia of chronic kidney failure, stage 5 Diabetes mellitus History of stroke Essential hypertension CKD (chronic kidney disease) stage 5, GFR less than 15 ml/min NSTEMI (non-ST elevated myocardial infarction) Acute exacerbation of CHF (congestive heart failure) The patient is seen & examined during dialysis. He says that he feels "better" today. He d enies any dizziness, cp, sob, abd pain, n/v. Leg pain is improved. The following portions of the patient's history were reviewed and updated as appropriate: l aboratory data, allergies, current medications, and problem list. Current Meds: aspirin 81 mg Oral Daily atorvaSTATin 80 mg Oral Nightly budesonide-formoterol 2 puff Inhalation RT BID clopidogrel 75 mg Oral Daily epoetin amarjit-epbx 10,000 Units Subcutaneous Weekly insulin glargine 25 Units Subcutaneous Nightly insulin lispro 0-6 Units Subcutaneous 4x Daily WC and HS isosorbide mononitrate 30 mg Oral Daily lidocaine (PF) 1 mL Subcutaneous Once lisinopril 2.5 mg Oral Nightly polyethylene glycol 17 g Oral Daily torsemide 40 mg Oral Daily dextrose 10% P.E. BP 111/53, P 70. General appearance: Pleasant, no acute distress. Lungs: Good A/E to auscultation bilaterally. There are no wheezes. Heart: Regular rate and rhythm without any rub, gallop. Faint systolic murmur at the LSB. Abdominal exam: Soft and nontender with normal bowel sounds. Extremities: Warm to touch with softer 1+ right leg edema. There is no cyanosis. Neurological: Awake, alert, and oriented to time, place, and person. Normal gross motor po wer. There is no asterixis. Access: right AV fistula with a good flow. Recent Labs 08/26/20 0520 BUN 60* CREA 4.10* EGFR 14* NA 137 K 4.1 CL 99 CO2 29 CALCIUM 8.1* MG 2.1 HGB 8.7* HCT 27.3* I/O last 3 completed shifts: In: 936 [P.O.:936] Out: 725 [Urine:725] No intake/output data recorded. Assessment: Mr. Andujar is a 80 y.o. male patient with ESRD on HD now. 3rd session today. High risk for electrolytes imbalance hypoNa Met acidosis hyperPhos At risk for severe hypoAlb Anemia in ESRD Tolerating dialysis well. Access: no issues. Complications identified during his dialysis treatment: None. Recommendations: Check RFP, CBC UF: as tolerated No IV Lasix need Torsemide 40 PO daily as of tomorrow WALESKA 10K subQ x1 (given) Renal diet restrictions stressed Next dialysis treatment is Friday per the submitted pre-vanegas orders. Farrukh Acuna MD koum, Farrukh Rubio MD - 9:38 AM PDT Hospital Problem List: Principal Problem: NSTEMI (non-ST elevated myocardial infarction) Active Problems: PAOLO (obstructive sleep apnea) COPD (chronic obstructive pulmonary disease) Diabetes mellitus History of stroke Essential hypertension CKD (chronic kidney disease) stage 5, GFR less than 15 ml/min Acute respiratory failure with hypoxia Acute exacerbation of CHF (congestive heart failure) The patient is seen & examined during dialysis. He says that he feels 'fine' today. He den ies any dizziness, cp, sob, abd pain, n/v. Leg pain is better. The following portions of the patient's history were reviewed and updated as appropriate: l aboratory data, allergies, current medications, and problem list. Current Meds: aspirin 81 mg Oral Daily atorvaSTATin 80 mg Oral Nightly budesonide-formoterol 2 puff Inhalation RT BID clopidogrel 75 mg Oral Daily furosemide 80 mg Intravenous Daily insulin glargine 25 Units Subcutaneous Nightly insulin lispro 0-6 Units Subcutaneous 4x Daily WC and HS polyethylene glycol 17 g Oral Daily dextrose 10% P.E. BP 111/53, P 70. General appearance: Pleasant, not in acute distress. Lungs: Good A/E to auscultation bilaterally. There are no wheezes. Heart: Regular rate and rhythm without any rub, gallop. Faint systolic murmur at the LSB. Abdominal exam: Soft and nontender with normal bowel sounds. Extremities: Warm to touch with 1+ right leg edema. There is no cyanosis. Neurological: Awake, alert, and oriented to time, place, and person. Normal gross motor po wer. There is no asterixis. Access: right AV fistula with a good thrill. Recent Labs 08/26/20 0520 08/24/20 2300 BUN 60* 84* CREA 4.10* 5.55* EGFR 14* 10* NA 137 132* K 4.1 4.5 CL 99 97* CO2 29 21* CALCIUM 8.1* 7.8* PHOS -- 7.4* MG 2.1 2.1 ALBUMIN -- 3.8 HGB 8.7* 7.9* HCT 27.3* 24.8* I/O last 3 completed shifts: In: 1211.8 [P.O.:800; I.V.:49.8; Blood:362] Out: 1400 [Urine:1100] No intake/output data recorded. Assessment: Mr. Andujar is a 80 y.o. male patient with ESRD on HD now. 2nd session today. High risk for electrolytes imbalance hypoNa Met acidosis hyperPhos At risk for severe hypoAlb Anemia in ESRD Tolerating dialysis well. Access: no issues. Complications identified during his dialysis treatment: None. Recommendations: UF: as tolerated. Stop IV Lasix Resume Torsemide 40 PO daily as of tomorrow WALESKA 10K subQ x1. Renal diet restrictions stressed. Next dialysis treatment is Friday per the submitted pre-vanegas orders. Farrukh Acuna MD koum, Farrukh Rubio MD - 7:22 PM PDT Hospital Problem List: Principal Problem: NSTEMI (non-ST elevated myocardial infarction) Active Problems: PAOLO (obstructive sleep apnea) COPD (chronic obstructive pulmonary disease) Diabetes mellitus History of stroke Essential hypertension CKD (chronic kidney disease) stage 5, GFR less than 15 ml/min Acute respiratory failure with hypoxia Acute exacerbation of CHF (congestive heart failure) The patient is seen & examined during dialysis. He says that he feels 'fine' today. He den ies any dizziness, cp, sob, abd pain, n/v. But he complains of leg pain. The following portions of the patient's history were reviewed and updated as appropriate: l aboratory data, allergies, current medications, and problem list. Current Meds: aspirin 81 mg Oral Daily atorvaSTATin 80 mg Oral Nightly budesonide-formoterol 2 puff Inhalation RT BID clopidogrel 75 mg Oral Daily furosemide 80 mg Intravenous Daily gabapentin 300 mg Oral Nightly insulin glargine 25 Units Subcutaneous Nightly insulin lispro 0-6 Units Subcutaneous 4x Daily WC and HS polyethylene glycol 17 g Oral Daily dextrose 10% P.E. BP 106/53 | Pulse 68 | Temp 36.4 C (97.6 F) (Axillary) | Resp 18 | Ht 1.727 m (5' 8 ") | Wt 85 kg (187 lb 6.3 oz) | SpO2 97% | BMI 28.49 kg/m General appearance: Pleasant, not in acute distress. Lungs: Good A/E to auscultation bilaterally. There are no wheezes. Heart: Regular rate and rhythm without any rub, gallop. Soft systolic diffuse murmur. Abdominal exam: Soft and nontender with normal bowel sounds. Extremities: Warm to touch with 1+ R leg edema. There is no cyanosis. Neurological: Awake, alert, and oriented to time, place, and person. Normal gross motor po wer. There is no asterixis. Access: right AV fistula with a good flow. Recent Labs 08/24/20 2300 BUN 84* CREA 5.55* EGFR 10* NA 132* K 4.5 CL 97* CO2 21* CALCIUM 7.8* PHOS 7.4* MG 2.1 ALBUMIN 3.8 HGB 7.9* HCT 24.8* I/O last 3 completed shifts: In: 199.8 [P.O.:150; I.V.:49.8] Out: 850 [Urine:850] No intake/output data recorded. Assessment: Mr. Andujar is a 80 y.o. male patient with ESRD on HD now. First session today. High risk for electrolytes imbalance hypoNa Met acidosis hyperPhos At risk for severe hypoAlb Anemia in ESRD Tolerating dialysis well. Access: no issues. Complications identified during his dialysis treatment: None. Recommendations: UF: as tolerated. Lisinopril low dose QHS for afterload reduction; to uptitrate slowly as tolerated WALESKA subQ x1 dose 10K tomorrow. Renal diet restrictions stressed. Next dialysis treatment is tomorrow per the submitted pre-vanegas orders. Farrukh Acuna MD documented in this enco unter Consult Notes Agustina Martinez MD - 08/31/2020 8:50 AM PDTAssociated Order(s): PROVIDER TO PROVIDER CONSU LT Service: Hematology/Oncology Initial Consult Note Date of Admission: 08/24/2020 Reason for Consultation: Requesting Physician: Dr Dalton Hospitalist History Obtained From: patient CHIEF COMPLAINT: Neck mass HISTORY OF PRESENT ILLNESS Mr. Andujar is an 80-year-old gentleman who has multiple comorbid conditions including histo ry of hypertension, hyperlipidemia, coronary artery disease, peripheral vascular disease, CO PD, type 2 diabetes, CVA, extensive history of tobacco use and on end-stage renal disease, c urrently on dialysis. The patient was admitted to [facility] after being transferred from [facility] with shortness of breath. Workup at the time of admission showed that the patient urena d ST elevation OR resulting in exacerbation of CHF and COPD. The patient was managed and st abilized. During his stay in the hospital, the patient continued to have hemoptysis. The patient was on chronic anticoagulation. Examination showed that there were multiple lymph nodes in his neck, which were enlarged. The patient was evaluated by Dr. Barba and a biopsy was fidel en from it, the results of which are still pending. The patient has significant history of smoking. He still continues to smoke. He has smoke d for last 59 years. He claims that he smoked only quarter pack a day, but before that he u sed to smoke a lot more. He has more than 30 pack years of smoking history. The patient at this time does not report any alcohol use or recreational drug use. The patient's father w as diagnosed with cancer, details of which are not known to the patient. Otherwise, he aldana s not report any other significant family history of malignancy. The patient is lying comfortably in the bed. He said that he gets tired fairly easily. He can hardly walk from one room to another. He complains of generalized fatigue, lethargy. His energy levels are affected. He does not report any nausea, vomiting or change in bowel habit at this time. In last 24 hours, he still notices some of blood in his phlegm, but it is not significant. He does not report any new difficulty swallowing food. He does not re port any new chest pain. He does not report any new back pain. Overall, the patient has no t reported any specific worsening of symptoms. The patient has complained of some bruising. He denies having any new blood in his urine o r stool. Active comorbid conditions include: - CHF - hypertension - past OR - PVD - COPD - sleep apnea - obesity - CVA - arthritis REVIEW OF SYSTEMS Review of Systems Constitutional: Positive for activity change, fatigue and unexpected weight change. Negativ e for diaphoresis. HENT: Positive for trouble swallowing. Negative for congestion, dental problem, hearing los s, mouth sores, nosebleeds and voice change. Eyes: Negative for visual disturbance. Respiratory: Positive for shortness of breath. Negative for cough. Cardiovascular: Positive for chest pain. Gastrointestinal: Negative for abdominal distention, abdominal pain, blood in stool, consti pation and nausea. Genitourinary: Negative for difficulty urinating. Musculoskeletal: Positive for arthralgias and arthritis. Negative for back pain. Skin: Negative for color change and pallor. Neurological: Negative for dizziness, speech difficulty and numbness. Hematological: Negative for adenopathy. Bruises/bleeds easily. Psychiatric/Behavioral: Negative for confusion. The patient is not nervous/anxious. Past Medical History: Diagnosis Date Arthritis Cardiovascular [...] (Right BBF); Surgeon: Brian Orosco MD; [place] [facility] [place] CHOLE[place]OM[place] COLONOSCOPY HIATAL HERNIA REPAIR LEG SURGERY x2 on stump of amputated leg OTHER SURGICAL HISTORY CATARACT EXTRACTION BILATERAL PANCREAS SURGERY tumor removal Allergies Allergen Reactions Trazodone Hallucination No current facility-administered medications on file prior to encounter. Current Outpatient Medications on File Prior to Encounter Medication Sig Dispense Refill albuterol 2.5 mg/3 [...] every 4 hours as needed for Indigestion. amLODIPine (NORVASC) 5 mg tablet Take 1 tablet by mouth Daily. 90 tablet 3 aspirin 81 mg chewable tablet Take 81 [...] daily. LANTUS SOLOSTAR 100 UNIT/ML injection (pen) Inject 25 Units under the skin nightly. 0 LINZESS 145 MCG capsule 1 lisinopril (PRINIVIL, ZESTRIL) 10 mg tablet 1 Magnesium 65 MG TABS Take 1 tablet [...] nee ded for shortness of breath 0 family history includes Cancer in his father; Heart disease in his father; Hypertension in his brother and mother. Social History Tobacco Use Smoking status: Current Every Day Smoker Packs/day: 0.25 Years: 59.00 Pack years: 14.75 Last attempt to quit: 09/27/2019 Years since quittin.9 Smokeless tobacco: Never Used Substance Use Topics Alcohol use: No Drug use: Never Comment: Drug use: No PHYSICAL EXAM BP 119/58 | Pulse 74 | Temp 36.8 C (98.2 F) (Oral) | Resp 18 | Ht 1.727 m (5' 8") | Wt 77.9 kg (171 lb 11.8 oz) | SpO2 96% | BMI 26.11 kg/m Physical Exam Vitals signs reviewed. Constitutional: Appearance: He is obese. HENT: Mouth/Throat: Mouth: Mucous membranes are moist. Eyes: Pupils: Pupils are equal, round, and reactive to light. Neck: Musculoskeletal: Normal range of motion and neck supple. Trachea: No tracheal deviation. Cardiovascular: Rate and Rhythm: Normal rate. Rhythm irregular. Heart sounds: Murmur present. Pulmonary: Effort: Pulmonary effort is normal. No respiratory distress. Breath sounds: Normal breath sounds. No stridor. No wheezing. Abdominal: General: Bowel sounds are normal. There is no distension. Palpations: Abdomen is soft. There is no mass. Tenderness: There is no guarding. Musculoskeletal: Normal range of motion. General: No deformity. Lymphadenopathy: Head: Right side of head: No submandibular or tonsillar adenopathy. Left side of head: No submandibular or tonsillar adenopathy. Cervical: Cervical adenopathy present. Right cervical: Superficial cervical adenopathy and deep cervical adenopathy present. Left cervical: No superficial cervical adenopathy. Upper Body: Right upper body: No supraclavicular or pectoral adenopathy. Left upper body: No supraclavicular or pectoral adenopathy. Skin: General: Skin is warm and dry. Findings: No erythema or rash. Neurological: Mental Status: He is alert and oriented to person, place, and time. Psychiatric: Mood and Affect: Mood normal. Behavior: Behavior normal. DATA Lab Recent Labs 08/31/20 0432 08/30/20 0401 08/28/20 0937 WBC 9.83 10.87 9.19 RBC 3.35* 3.33* 3.25* HGB 9.7* 9.6* 9.6* HCT 30.2* 31.0* 29.4* MCV 90.1 93.1 90.5 MCH 29.0 28.8 29.5 MCHC 32.1 31.0* 32.7 PLT 249 251 261 MPV 10.8 10.4 10.2 Recent Labs 08/31/20 0432 08/30/20 0401 08/28/20 0937 NA 135 137 138 K 4.3 4.3 3.8 CL 99 103 103 CO2 28 26 30 ANIONGAP 12 12 9 BUN 30* 42* 36* CALCIUM 7.6* 7.7* 7.3* AGRATIO -- -- 1.7 TP -- -- 5.2* ALKPHOS -- -- 60 ALT -- -- 12 AST -- -- 15 EGFR 19* 16* 23* Imaging Recent Results (from the past 360 hour(s)) XR Chest AP Portable Impression Mixed interstitial and ground-glass opacities seen bilaterally, right greater than left, with a right-sided effusion. This may reflect pulmonary edema, though atypical or viral infection could appear similar. Final Report Signed by: Idris Gutierrez James Sign Date/Time: 08/24/2020 11:28 PM US Renal Limited Impression 1. Cortical thinning and increased echogenicity suggesting medical renal disease. 2. Multiple bilateral renal cysts. Final Report Signed by: Idris Valdez Richard Sign Date/Time: 08/25/2020 7:50 AM XR Abd Supine and Upright w 1 Vw Chest Impression 1. Similar appearance of the mixed interstitial and ground-glass opacities of the right greater than left lungs and moderate right pleural effusion. 2. Nonobstructive bowel gas pattern. 3. No evidence of pneumoperitoneum. Final Report Signed by: Idris Garcia Elizabeth Sign Date/Time: 08/27/2020 2:[address] Angiogram Pulmonary w Contrast Impression 1. No pulmonary embolism. 2. Mild bilateral pulmonary edema. 3. Moderate bilateral pulmonary effusions associated bibasilar atelectasis. 4. Single enlarged paratracheal lymph node, likely reactive. Attention on follow-up examinations. 5. 2.6 x 2.9 cm low-attenuation lesion in the liver of unknown chronicity common is low-attenuation likely a cyst or hemangioma, could be further evaluated with ultrasound or multiphase cross-sectional imaging if clinically indicated. 6. Status post cholecystectomy. Final Report Signed by: Idris iDaz Collin Sign Date/Time: 08/29/2020 1:54 PM PROBLEM LIST Patient Active Problem List Diagnosis PAOLO (obstructive sleep apnea) COPD (chronic obstructive pulmonary disease) Intertrochanteric fracture of left hip, closed, initial encounter Laceration of left ear, initial encounter Status post fall Acute hyperkalemia Intractable pain Type 2 diabetes mellitus with diabetic nephropathy, with long-term current use of insul in Phantom limb pain Adiposity Anemia of chronic kidney failure, stage 5 Cataract of both eyes Diabetes mellitus Edema of lower extremity History of stroke Essential hypertension Hyperuricemia Hypomagnesemia Persistent proteinuria Status post amputation of lower extremity Tobacco dependence syndrome Vitamin D deficiency Iron deficiency Secondary hyperparathyroidism CKD (chronic kidney disease) stage 5, GFR less than 15 ml/min NSTEMI (non-ST elevated myocardial infarction) Acute respiratory failure with hypoxia Acute exacerbation of CHF (congestive heart failure) Hemoptysis ASSESSMENT & PLAN Mr. Andujar is an 80-year-old gentleman who has multiple comorbid conditions. The patient w as transferred from [facility] with persistent worsening shortness of breath. On evaluation, the patient was noted to have exacerbation of congestive heart failure relat ed to myocardial infarction. The patient was stabilized and treated, was noted to have incr eased lymph nodes in his neck. The patient was evaluated by Dr. Barba. On, examination , the patient was noted to have right tonsillar mass. Biopsy was done. 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 Further pathology report is still p ending. I have discussed further management with the patient. I have explained to him that at this time, staging needs to be done. He need to figure out if it has gone to other area. The p jack's previous CT scan performed on 08/29/2020 to rule out pulmonary embolism, showed marya t there was a lesion in his liver, which is highly suspicious. Therefore, the patient would benefit from having a PET scan to complete the staging. The patient understands it well. The patient was explained that if the disease is limited to neck only, then the treatment w ould be either radiation or chemotherapy with radiation depending upon the extent of disease . The patient has multiple comorbid conditions. He is on end-stage renal disease. Therefo re, treatment is going to be complicated. Given his age and other comorbid conditions, he i s going to be high risk of having issues. The patient currently lives in [place]. He wants to receive his treatment near his home. The patient has requested a referral there. There is a [facility] from [place], which visits [place] and we will see if the patient could be referred to [facility] to receive the treatment as per the patient's wishes. I would recommend the patient to have further workup including a PET scan, possible MRI of the liver to evaluate that lesion further and then depending upon the staging, further treat ment would be done. If the patient has systemic disease, then the only treatment would be c hemotherapy. The patient still continues to smoke. He is recommended to quit smoking. The patient has multiple other comorbid conditions. It needs to be managed as per the hosp ice team. The patient has anemia. His hemoglobin is 9.7 g/dL. This is most likely related to his re nal failure. If GI workup has not been done previously, it needs to be done to rule out GI bleed. However, given his complicated other complications, it may or may not be feasible. The patient's case was discussed with Dr. Dalton. Greater than 80 minutes were spent examining the patient, review of medical records, counse ling, coordination of care, and CPOE. More than 50% of that time was spent in direct contact with the patient. Code Status: Full Code Primary Care Physician: Jessenia Bergman Electronically Signed by: Agustina Martinez MD 08/31/2020 8:50 AM PDT Pam Sanchez D O - 08/29/2020 6:06 PM PDTAssociated Order(s): PROVIDER TO PROVIDER CONSULTFormatting of [facility] note might be different from the original. Service: Otolaryngology (ENT) Initial Consult Note Date of Admission: 08/24/2020 Reason for Consultation: Hemoptysis Requesting Physician: Dr. Dalton, Hospitalist History Obtained From: patient CHIEF COMPLAINT: Coughing up blood HISTORY OF PRESENT ILLNESS The patient is 80 y.o. 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 Ho spital course complication by acute on chronic hemoptysis. Cardiac catheterization has been delayed due to the hemoptysis. Patient notes that he has had the hemoptysis for the past two months. He denies unintentional weight loss, fevers, chills, or night sweats. He does note right throat pain. No dysphagia or hoarseness. The patient is on chronic anticoagulation. CT A of the chest was unremarkable for pulmonary etiology regarding the hemoptysis. No nasal bl eeding or epistaxis. He admits that he quit smoking 3 weeks ago (60 pack year history). ENT consulted for evaluation of the hemoptysis. Active comorbid conditions include: - hypertension; essential - PVD - COPD - sleep apnea; obstructive - endocrine problem - diabetes; type 2; using insulin; uncontrolled (Hgb A1C >= 6.5); with complications - obesity - CVA - arthritis - Drugs/Alcohol/Tobacco - tobacco use REVIEW OF SYSTEMS Review of Systems Constitutional: Negative. HENT: Positive for sore throat. Hemoptysis Respiratory: Negative. Cardiovascular: Negative. Gastrointestinal: Negative. Endocrine: Negative. Musculoskeletal: Positive for arthritis. Neurological: Negative. Hematological: Negative. Psychiatric/Behavioral: Negative. Past Medical History: Diagnosis Date Arthritis Cardiovascular [...] (Right BBF); Surgeon: Brian Orosco MD; [place] [facility] [place] CHOLECYSTECTOMY COLONOSCOPY HIATAL HERNIA REPAIR LEG SURGERY x2 on stump of amputated leg OTHER SURGICAL HISTORY CATARACT EXTRACTION BILATERAL PANCREAS SURGERY tumor removal Allergies Allergen Reactions Trazodone Hallucination Medications Prior to Admission Medication Sig Dispense [...] every 4 hours as needed for Indigestion. amLODIPine (NORVASC) 5 mg tablet Take 1 tablet by mouth Daily. 90 tablet 3 aspirin 81 mg chewable tablet Take 81 [...] daily. LANTUS SOLOSTAR 100 UNIT/ML injection (pen) Inject 25 Units under the skin nightly. 0 LINZESS 145 MCG capsule 1 lisinopril (PRINIVIL, ZESTRIL) 10 mg tablet 1 Magnesium 65 MG TABS Take 1 tablet [...] nee ded for shortness of breath 0 Scheduled Medications aspirin 81 mg Oral Daily atorvaSTATin 80 mg Oral Nightly budesonide-formoterol 2 puff Inhalation RT BID clopidogrel 75 mg Oral Daily epoetin amarjit-epbx 10,000 Units Subcutaneous Weekly heparin 1,500-6,000 Units Intracatheter After each dialysis insulin glargine 25 Units Subcutaneous Nightly insulin lispro 0-6 Units Subcutaneous 4x Daily WC and HS isosorbide mononitrate 30 mg Oral Daily lisinopril 2.5 mg Oral Nightly polyethylene glycol 17 g Oral Daily torsemide 40 mg Oral Daily Continuous Infusions dextrose 10% PRN Medications acetaminophen, albuterol, Hypoglycemia Management AND POCT Glucose AND dextrose A ND dextrose 10%, docusate sodium, lidocaine (PF), lidocaine, nitroglycerin, ondansetron, o xyCODONE, promethazine, sodium chloride 0.9%, sodium chloride 0.9% Family History Problem Relation Age of Onset Hypertension Mother Cancer Father Heart disease Father Hypertension Brother Sharifa degroot Neg Hx reports that he has been smoking. He has a 14.75 pack-year smoking history. He has never u sed smokeless tobacco. He reports that he does not drink alcohol or use drugs. PHYSICAL EXAM Vital Signs: BP 127/59 | Pulse 86 | Temp 36.7 C (98 F) (Oral) | Resp 18 | Ht 1.727 m (5' 8") | Wt 79.5 kg (175 lb 3.2 oz) | SpO2 93% | BMI 26.64 kg/m Physical Exam Vitals signs reviewed. Constitutional: Appearance: Normal appearance. HENT: Head: Normocephalic and atraumatic. Right Ear: Tympanic membrane and external ear normal. Left Ear: Tympanic membrane and external ear normal. Nose: Nose normal. Mouth/Throat: Mouth: Mucous membranes are moist. Comments: Exophytic mass of the right tonsil with extensive ulceration. Eyes: Extraocular Movements: Extraocular movements intact. Pupils: Pupils are equal, round, and reactive to light. Neck: Musculoskeletal: Normal range of motion and neck supple. Comments: Right cervical adenopathy noted. Enlarged lymph node level III Pulmonary: Effort: Pulmonary effort is normal. Lymphadenopathy: Cervical: Cervical adenopathy present. Neurological: Mental Status: He is alert. FLEXIBLE LARYNGOSCOPY PROCEDURE NOTE Flexible laryngoscopy was performed through the right nasal cavity following the topical ap plication of lidocaine and afrin. The examination reveals normal anatomy in the nose and na sopharynx. The large exophytic mass of the right tonsil extends posteriorly through the post erior tonsillar pillar. Laryngeal examination reveals normal true vocal cord mobility withou t nodules or polyps. The visualized portion of the subglottis appears normal. There is no e shirley or erythema of the arytenoids or aryepiglottic folds. The epiglottis, vallecula and b ase of tongue are normal. Piriform sinuses are free of mass, polyp, or lesion. Post-cricoid region appears to be normal. Flexible laryngoscopy is performed because laryngeal mirror evaluation is not felt to be ac curate enough to obtain diagnostic information in this clinical setting. DATA Recent Results (from the past 24 hour(s)) POC Glucose Result Value Ref Range Glucose, POC 128 (H) 65 - 99 mg/dL D-Dimer Result Value Ref Range D-DIMER 2.50 (H) 0.19 - 0.50 mg/L FEU POC Glucose Result Value Ref Range Glucose, POC 140 (H) 65 - 99 mg/dL POC Glucose Result Value Ref Range Glucose, POC 134 (H) 65 - 99 mg/dL POC Glucose Result Value Ref Range Glucose, POC 225 (H) 65 - 99 mg/dL ECG 12 lead Result Value Ref Range INTERPRETATION TEXT Not Confirmed PROBLEM LIST Principal Problem: Acute respiratory failure with hypoxia Active Problems: Hemoptysis PAOLO (obstructive sleep apnea) COPD (chronic obstructive pulmonary disease) Anemia of chronic kidney failure, stage 5 Diabetes mellitus History of stroke Essential hypertension CKD (chronic kidney disease) stage 5, GFR less than 15 ml/min NSTEMI (non-ST elevated myocardial infarction) Acute exacerbation of CHF (congestive heart failure) ASSESSMENT & PLAN Hemoptysis, right tonsil mass, right cervical adenopathy; patient is 80-year-old male with persistent hemoptysis of at least 2 months duration with a large exophytic ulcerated mass of the right tonsil. He does have an extensive history of tobacco use. I have discussed with the patient that this likely represents a malignancy including lymphoma or squamous cell ca rcinoma. Due to his history of smoking, it seems that this is more likely squamous cell car cinoma there is also evidence of right cervical adenopathy. This likely represents metastat ic disease. He remains on chronic anticoagulation due to his history of stroke and due to h is most recent history of OR. -Plan for biopsy tomorrow in the afternoon with frozen section of the right tonsillar mass as this will expedite the diagnosis. This will be performed at bedside. Will likely perform fine-needle aspiration biopsy of the right neck mass. -Will likely need CT soft tissue neck with contrast for complete evaluation -Please call with any questions. -Will continue to follow the patient. Code Status: Full Code Primary Care Physician: Jessenia Barba, 08/29/2020 Lakeisha Gandhi MD - 08/25/2020 10:54 AM PDTFormatting of this note might be different from the o riginal. [facility] Service: Cardiology Initial Consult Note Name of Beauty Sales Consultant: Lakeisha Landry MD Reason for Consultation: NSTEMI Requesting Physician: Hospitalist History Obtained From: Patient and chart review CHIEF COMPLAINT: Chest pain HISTORY OF PRESENT ILLNESS: Patient is 80 y.o. complex past medical history and presentation. Was evaluated in [facility] in [place] secondary to shortness of breath. Sym ptoms started around 2 months ago. Associated with chest pressure that has been intermitten t at rest since patient is an active and wheelchair-bound. Required BIPAP therapy hence was transferred to [facility]. On presentation was noted to be hemodynamically stable, ST changes w ere noted and troponin was elevated hence cardiology was consulted. Started on IV heparin, noted to have hemoptysis associated with blood clots in his IV hepar in was stopped again. Has known history of chronic obstructive pulmonary disease, type 2 diabetes mellitus, left BKA, dyslipidemia, iron deficiency anemia, obstructive sleep apnea, stage V kidney disease h owever was not on dialysis yet. REVIEW OF SYSTEMS Constitutional: Positive for fatigue. HENT: Negative for nosebleeds. Eyes: Negative for visual disturbance. Respiratory: Positive for hemoptysis and for cough and shortness of breath. Cardiovascular: As HPI. Gastrointestinal: Negative for nausea, vomiting, abdominal pain and blood in stool. Genitourinary: Negative for hematuria or dysuria. Musculoskeletal: Wheelchair-bound. Skin: Negative for color change. Neurological: Negative for dizziness, syncope and numbness. Hematological: Does not bruise/bleed easily. Psychiatric/Behavioral: The patient is not nervous/anxious. PAST MEDICAL & SURGICAL HISTORY Past Medical History: Diagnosis Date Arthritis [...] (Right BBF); Surgeon: Brian Orosco MD; [place] [facility] [place] CHOLECYSTECTOMY COLONOSCOPY HIATAL HERNIA REPAIR LEG SURGERY x2 on stump of amputated leg OTHER SURGICAL HISTORY CATARACT EXTRACTION BILATERAL PANCREAS SURGERY tumor removal MEDICATIONS Home Medications Medications Prior to Admission Medication Sig Dispense [...] every 4 hours as needed for Indigestion. amLODIPine (NORVASC) 5 mg tablet Take 1 tablet by mouth Daily. 90 tablet 3 aspirin 81 mg chewable tablet Take 81 [...] daily. LANTUS SOLOSTAR 100 UNIT/ML injection (pen) Inject 25 Units under the skin nightly. 0 LINZESS 145 MCG capsule 1 lisinopril (PRINIVIL, ZESTRIL) 10 mg tablet 1 Magnesium 65 MG TABS Take 1 tablet [...] nee ded for shortness of breath 0 Inhospital Medications aspirin 81 mg Oral Daily atorvaSTATin 80 mg Oral Nightly budesonide-formoterol 2 puff Inhalation RT BID clopidogrel 75 mg Oral Daily furosemide 80 mg Intravenous Daily insulin glargine 25 Units Subcutaneous Nightly insulin lispro 0-6 Units Subcutaneous 4x Daily WC and HS polyethylene glycol 17 g Oral Daily sodium bicarbonate 650 mg Oral 4x Daily dextrose 10% Allergies Allergies Allergen Reactions Trazodone Hallucination FAMILY HISTORY Family History Problem Relation Age [...] file Gets together: Not on file Attends spiritism service: Not on file Active member of [...] file Social History Narrative Not on file PHYSICAL EXAM Vital Signs: BP 116/57 | Pulse 77 | Temp 36.4 C (97.6 F) (Axillary) | Resp 22 | Ht 1.727 m (5' 8 ") | Wt 85 kg (187 lb 6.3 oz) | SpO2 96% | BMI 28.49 kg/m Intake/Output Summary (Last 24 hours) at 08/25/2020 1054 Last data filed at 08/25/2020 0630 Gross per 24 hour Intake 49.84 ml Output 600 ml Net -550.16 ml Constitutional: Well-developed. Neck: No JVD present. No thyromegaly present. Cardiovascular: Regular rhythm, S1 normal and S2 normal. Pulses: Carotid pulses are 2+ on the right side, and 2+ on the left side. Radial pulses are 2+ on the right side, and 2+ on the left side. Pulmonary/Chest: Effort normal and breath sounds normal. No wheezes. No rales. Abdominal: Soft. No tenderness. Musculoskeletal: Left BKA. Neurological: Alert. No cranial nerve deficit. Skin: Warm and dry. DATA Recent Labs Lab 08/24/20 2300 NA 132* K 4.5 CO2 21* BUN 84* CREA 5.55* CALCIUM 7.8* MG 2.1 Recent Labs Lab 08/25/20 0803 CKMB 9.0* Lab Results Component Value Date ALT 12 08/24/2020 AST 22 08/24/2020 ALKPHOS 86 08/24/2020 BILI 0.4 08/24/2020 Recent Labs Lab 08/24/20 2300 WBC 10.66 HGB 7.9* HCT 24.8* MCV 92.5 PLT 327 Lab Results Component Value Date CHOL 117 07/14/2018 CHOL 146 10/27/2017 TRIG 159 (A) 07/14/2018 TRIG 270 (A) 10/27/2017 HDL 31.1 07/14/2018 HDL 29.9 10/27/2017 GLUF 250 (A) 05/29/2020 GLUF 173 (A) 06/15/2019 HBA1C 6.9 07/14/2018 HBA1C 7.6 10/27/2017 EK08/25/2020 Reviewed showed normal sinus rhythm, intraventricular delay, anterolateral T wave inversion s. Last Echo: Last stress test: Last cath: Carotid US: AAA screening: Lower extremity US: OTHERS: ASSESSMENT & PLAN Patient is 80 y.o. with 1. Non-ST elevation OR currently chest pain-free hemodynamic stable. 2. Acute decompensated congestive heart failure. 3. Ongoing hemoptysis. 4. Stage V kidney disease requiring urgent hemodialysis. 5. Bedbound. 6. Type 2 diabetes mellitus. 7. History of cerebrovascular accident. 8. Chronic obstructive pulmonary disease. 9. Normocytic anemia possibly of chronic disease. Recommendations: Currently hemodynamic stable and chest pain-free. On clopidogrel and aspirin. IV heparin was stopped secondary to hemoptysis which has been ongoing for months. Further evaluation for pulmonary etiology is recommended. Will be started on hemodialysis by the nephrology team to optimize his volume status. Echocardiogram is pending. At this time hemodynamics are controlled. Significantly anemic hemoglobin 7.9 also that needs to be addressed. Medical management by the hospitalist team. Thank you for allowing me to participate in the care of this patient. Code Status: Full Code Primary Care Physician: Jessenia Landry MD 08/25/2020 koum, Farrukh Rubio MD - 08/25/2020 6:45 AM PDT Hospital Problem List: Principal Problem: NSTEMI (non-ST elevated myocardial infarction) Active Problems: PAOLO (obstructive sleep apnea) COPD (chronic obstructive pulmonary disease) Diabetes mellitus History of stroke Essential hypertension CKD (chronic kidney disease) stage 5, GFR less than 15 ml/min Acute respiratory failure with hypoxia Acute exacerbation of CHF (congestive heart failure) Encounter date & initial notes made per the date & time stamp above. Documentation started in Epic then completed at a later time. I was asked by the ED team to see Mr. Andujar in consult emergently today. As the admitting/ consulting team is familiar with his case, I will not state his past history in detail. Anahi dixon, he is a 80 y.o. male patient with history as delineated in the Past Medical & Surgical History sections. I was called in to evaluate him for opinion on emergent dialysis need. He was admitted with "NSTEMI (non-ST elevated myocardial infarction) ([facility]) [I21.4] ESRD needing dialysis ([facility]) [N18.6, Z99.2] Hypervolemia, unspecified hypervolemia type [E87.70] Anemia of chronic renal failure, unspecified CKD stage [N18.9, D63.1] Congestive heart failure, unspecified HF chronicity, unspecified heart failure type ([facility]) [ I50.9] He presented with "Shortness of Breath (chf exacerbation, sent from [facility]. Sri asher meghan two days ago ) Has had dyspnea & chest pressure on off for 1 month. 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 sxs worsened the 2 days ptp. Taken to [facility] ED. I received a phone call last night when the patient was at [facility]: life threatening severe hyp ervolemia with acute hypoxic respiratory failure from acute pulmonary edema. BiPAP helped st abilize him. Sent to [facility]. Still requiring PPV & not in a safe condition yet. History & ROS obtained from : patient, his daughter over the phone, the ED team at [facility], the ED team at [facility], chart review. The patient has history of CKD V. He says that he feels 'poo r' today. No history of blurred vision tinnitus, headache, fever, chills, or cough. No tatyana sea, vomiting, abdominal pain, diarrhea, melena, or hematochezia. No chest pain, palpitatio n, dizziness, loss of consciousness, orthopnea, paroxysmal nocturnal dyspnea, or leg edema. No dysuria, incontinence, or symptoms of UTI. The following portions of the patient's history were reviewed and updated as appropriate: a llergies, current medications, past medical history, past social history, past surgical hist ory, family history and problem list. I also reviewed with his preadmission records; these w ere very informative. Active comorbid conditions include: - CHF; acute on chronic; systolic - hypertension; essential - past OR - PVD - COPD - sleep apnea; obstructive - renal disease; CKD; Stage 5 - endocrine problem - diabetes; type 2; using insulin; uncontrolled (Hgb A1C >= 6.5); with complications - obesity - CVA - arthritis - Drugs/Alcohol/Tobacco - tobacco use Past Medical History: Diagnosis Date Arthritis Cardiovascular [...] (Right BBF); Surgeon: Brian Orosco MD; [place] [facility] [place] CHOLECYSTECTOMY COLONOSCOPY HIATAL HERNIA REPAIR LEG SURGERY x2 on stump of amputated leg OTHER SURGICAL HISTORY CATARACT EXTRACTION BILATERAL PANCREAS SURGERY tumor removal Family History Problem Relation Age of Onset Hypertension Mother Cancer Father Heart disease Father Hypertension Brother [place] hypertherm Neg Hx Social History Socioeconomic History Marital status: Spouse [...] file Gets together: Not on file Attends spiritism service: Not on file Active member of [...] file Social History Narrative Not on file Allergies Allergen Reactions Trazodone Hallucination Intolerance No active intolerances/contraindications ROS: As in History of Present Illness above & Assessment below. All the twelve systems were reviewed and were otherwise negative. aspirin 81 mg Oral Daily atorvaSTATin 80 mg Oral Nightly budesonide-formoterol 2 puff Inhalation RT BID clopidogrel 75 mg Oral Daily furosemide 80 mg Intravenous Daily insulin glargine 25 Units Subcutaneous Nightly insulin lispro 0-6 Units Subcutaneous 4x Daily WC and HS polyethylene glycol 17 g Oral Daily sodium bicarbonate 650 mg Oral 4x Daily dextrose 10% P.E. BP 101/53 | Pulse 77 | Temp 36.4 C (97.6 F) (Oral) | Resp 13 | Ht 1.727 m (5' 8") | Wt 85 kg (187 lb 6.3 oz) | SpO2 (!) 89% Comment: while answering questions, before going back on BiPap | BMI 28.49 kg/m General appearance: Pleasant but in acute distress. On PPV mask. Using accessory muscles t o breathe, but calmer vs the report I received earlier. Neck: Supple without tracheal deviation or jugular venous distension. Head and ENT: Head is atraumatic. The oropharynx is without erythema or thrush. Eyes: Anicteric. The extraocular muscle movements are normal. Lungs: Good A/E to auscultation bilaterally. There are no wheezes. Heart: Regular rate and rhythm without any rub, gallop. Grade 2 systolic murmur all over p recordium. Abdominal exam: Soft and nontender with normal bowel sounds. Musculoskeletal: No costovertebral angle tenderness bilaterally. Extremities: Warm to touch with 1+ R leg edema. There is no cyanosis. Skin: There are no rashes, petechiae, or ecchymosis. Neurological: Awake, alert, and oriented to time, place, and person. Normal gross motor po wer. There is no asterixis. Psychiatric: The patient s behavior is normal. Judgment and thought content are normal. Access: good thrill in right arm AVF. I/O last 3 completed shifts: In: 49.8 [I.V.:49.8] Out: 600 [Urine:600] No intake/output data recorded. Recent Labs 08/24/20 2300 BUN 84* CREA 5.55* EGFR 10* NA 132* K 4.5 CL 97* CO2 21* CALCIUM 7.8* PHOS 7.4* MG 2.1 ALBUMIN 3.8 HGB 7.9* HCT 24.8* Assessment/Recommendations: Mr. Andujar is a 80 y.o. male patient with ESRD now. Acute hypoxic resp failure Acute pulmonary edema ADHF Peripheral edema STEMI. -He was admitted with "NSTEMI (non-ST elevated myocardial infarction) ([facility]) [I21.4] ESRD needing dialysis ([facility]) [N18.6, Z99.2] Hypervolemia, unspecified hypervolemia type [E87.70] Anemia of chronic renal failure, unspecified CKD stage [N18.9, D63.1] Congestive heart failure, unspecified HF chronicity, unspecified heart failure type ([facility]) [ I50.9] -He presented with "Shortness of Breath (chf exacerbation, [facility] Sri neg ative two days ago ) VOLUME: EABV is up No IVF need IV diuresis did not help Advise fluid restriction of 1.2 L per 24 hrs There is an acute UF indication per the submitted orders with HD Given his tendency for anasarca: Encourage adequate intake & close dietitian F/U. Soon: Enc ourage ambulation safely. Encourage the adequate use of an incentive spirometer. RENAL FUNCTION: Small RKF at this time There is an acute FEE CLERK indication, on an urgent basis, per the submitted orders No IVF need Strict I/O & daily weights. Dose all of his meds to his current intermittent HD + his small RKF. Continue to avoid all kinds of nephrotoxins. Target euvolumia with a MAP>75 mmHg as possible. BLOOD PRESSURE: Uncontrolled Slightly low now Vasoactive meds as ordered Will consider Midodrine use as indicated Monitor BP closely & frequently ELECTROLYTES: Abnormal. +ve acute FEE CLERK indication He is at risk for electrolytes imbalance. Sodium: hypoNa Potassium: ok Calcium: hypoCa, mild Magnesium: ok Phosphorus: hyperPhos Acid/Base: met acidosis, improved Reinforce lytes protocol ALBUMIN: hypoalbuminemia Prot suppl stressed ANEMIA: moderate Associated with severe CKD At this time, no need to send Ferritin, iron panel Plan WALESKA with HD I discussed today with Mr. Andujar the meaning of his critical medical situation now and the interaction of that with his renal failure. I discussed with the ED team then the primary team the case before then after the time of t his encounter. I spent 40 critical care minutes today in interviewing & examining the patient, reviewing & updating the patient's chart, formulating a plan, in addition to patient & his daughter's e ducation and discussions with the primary/consulting team. Critical care was necessary to t reat or prevent imminent or life-threatening deterioration of the following conditions: life threatening severe hypervolemia with acute hypoxic respiratory failure from acute pulmonary edema. Critical care was time spent personally by me on the following activities: evaluatio n of patient's response to treatment, obtaining history from patient or surrogate, ordering and review of laboratory studies, development of treatment plan with patient or surrogate, r eview of old charts, discussions with primary/consulting team, ordering and performing treat ments and interventions and re-evaluation of patient's condition. Comments: I was in constan t attendance of the patient for the time listed here and this time was greater than 40 minut es. This patient was with a potentially life or organ threatening life threatening severe hy pervolemia with acute hypoxic respiratory failure from acute pulmonary edema. Had this not b een done the patient could have suffered disability and/or . Emergent interventions wer e required to prevent life or organ threatening deterioration. Time is exclusive of separate ly billable procedures and of time spent caring for other patients. Thank you colleagues for the opportunity to see this patient in consult emergently. Please do not hesitate to call me at any time with questions or concerns. Farrukh Acuna MD documented in this enco unter ED Notes Taya Mario RN - 08/25/2020 1:01 AM [phone] Charlotte (Daughter) [phone] Taya Otto RN - 08/24/2020 11:46 PM PDTDr. Di made aware of troponin of 8.035Electronicall y signed by Taya Mario RN at 08/24/2020 11:46 PM PDTSheyla Sevilla MD - 08/24/2020 10:50 PM PDT [facility] Department of Emergency Medicine No flowsheet data found. 3:41 AM PDT History of Present Illness Patient Identification Porfirio Andujar is a 80 y.o. male. Porfirio Andujar Patient information was obtained from patient History/Exam limitations: none. Patient presented to the Emergency Department by: [facility] Chief Complaint Chief Complaint Patient presents with Shortness of Breath chf exacerbation, [facility]. Covid negative two days ago The patient history of COPD, end-stage renal disease not on dialysis, diabetes, hypertensio n hyperlipidemia, left AKA presents to the emergency department with chief complaints of eddi rtness of breath. Onset of symptoms was several days ago, with a constant course since that time. The symptoms are described to be of moderate severity. The patient also complains of n othing. The patient describes the quality and location of the symptoms as the following: Palua antunez stated that he started experiencing shortness of breath for the past several days, has a right upper arm dialysis fistula but has not been dialyzed for a long time. He was evalua cassi at [facility], received 80 mg of Lasix and placed on BiPAP, plan for dialysi s tomorrow morning. Care prior to arrival consisted of Lasix and BiPAP, with significant re lief. PCP: Jessenia Bergman Past Medical History: Diagnosis Date Arthritis Cardiovascular [...] (Right BBF); Surgeon: Brian Orosco MD; [place] [facility] [place] CHOLECYSTECTOMY COLONOSCOPY HIATAL HERNIA REPAIR LEG SURGERY x2 on stump of amputated leg OTHER SURGICAL HISTORY CATARACT EXTRACTION BILATERAL PANCREAS SURGERY tumor removal Prior to Admission medications Medication Sig Start Date End Date Taking? Authorizing Provider albuterol 2.5 mg/3 mL nebulizer solution Take 2.5 mg by nebulization every 6 hours as neede d for Wheezing. Historical Provider, albuterol-ipratropium (DUONEB) 2.5-0.5 mg/3 mL SOLN Take 3 mLs by nebulization Before break fast, dinner and bedtime. Historical Provider, aluminum & magnesium hydroxide-simethicone (MAALOX PLUS DOUBLE STRENGTH) 400-400-40 mg/5 mL suspension Take 15 mLs by mouth every 4 hours as needed for Indigestion. Historical Prov iderMD amLODIPine (NORVASC) 5 mg tablet Take 1 tablet by mouth Daily. 10/04/19 Farrukh Acuna MD aspirin 81 mg chewable tablet Take 81 mg by mouth Daily. Historical Provider, atorvaSTATin (LIPITOR) 80 MG tablet Take 80 mg by mouth nightly. Historical Provider, calcitriol (ROCALTROL) 0.25 mcg capsule Take 1 capsule by mouth Daily. 08/18/19 Farrukh arellano MD CHOLECALCIFEROL PO Take 1 tablet by mouth Daily. Historical Provider, clopidogrel (PLAVIX) 75 mg tablet Take 75 mg by mouth Daily. Historical Provider, cyanocobalamin (VITAMIN B-12) 1000 MCG tablet Take 1,000 mcg by mouth every 14 days. His torical Provider, darbepoetin amarjit (ARANESP, ALBUMIN FREE,) 100 mcg/0.5 mL injection Inject 0.5 mLs under the skin Every 28 days. 07/27/20 Farrukh Acuna MD docusate-senna (SENOKOT-S) 50-8.6 mg per tablet Take 2 tablets by mouth Daily. Historica l ProviderMD doxepin (SINEQUAN) 10 mg capsule 50 mg. 05/31/19 Historical ProviderMD ferrous sulfate 324 (65 Fe) MG EC tablet Take 65 mg of iron by mouth 4 times daily with bel ls. Historical Provider, insulin aspart (NOVOLOG PENFILL) 100 units/mL injection cartridge Inject under the skin 3 times daily (before meals). Per following sliding scale: 151 200 = 2 units, 201-250 = 4 un its, 251 300 = 6 units, 301 350 = 8 units, greater than 350 = 10 units and call M.D. Historical Provider, ipratropium (ATROVENT) 500 mcg/2.5 mL nebulizer solution Take 0.5 mg by nebulization 4 (fou r) times daily. Historical Provider, LANXENIA SOLOSTAR 100 UNIT/ML injection (pen) Inject 25 Units under the skin nightly. 05/19/19 Historical ProviderMD LINZESS 145 MCG capsule 05/20/19 Historical ProviderMD lisinopril (PRINIVIL, ZESTRIL) 10 mg tablet 06/04/19 Historical ProviderMD Magnesium 65 MG TABS Take 1 tablet by mouth Daily. Historical Provider, omeprazole (PRILOSEC) 20 mg capsule Take 20 mg by mouth Daily. 08/02/20 Historical Provider MD ondansetron (ZOFRAN ODT) 8 mg disintegrating tablet 06/18/19 Historical Provider, ONE TOUCH ULTRA TEST strip USE TO TEST BLOOD SUGAR five times a day 06/01/19 Historical Pro viderMD oxyCODONE (ROXICODONE) 15 mg immediate release tablet Take 15 mg by mouth every 4 hours. Historical Provider, oxygen Inhale 4 L into the lungs as needed (If napping or having increased pain during the day). Historical Provider, polyethylene glycol (MIRALAX) packet Take 17 g by mouth Daily. Historical Provider, sodium bicarbonate 650 mg tablet take 1 tablet by mouth four times a day 05/05/20 Farrukh richey MD torsemide (DEMADEX) 20 mg tablet Take 2 tablets by mouth Daily. 03/14/20 Farrukh Acuna MD TRELEGY ELLIPTA 100-62.5-25 MCG/INH inhaler inhale 1 puff by mouth once daily 02/15/20 His torical Provider, VENTOLIN HFA 108 (90 Base) MCG/ACT inhaler inhale 2 puffs by mouth every 4 hours if needed for shortness of breath 03/03/19 Historical ProviderMD Allergies Allergen Reactions Trazodone Hallucination Social History Socioeconomic History Marital status: Spouse [...] file Gets together: Not on file Attends spiritism service: Not on file Active member of [...] file Social History Narrative Not on file Family History Problem Relation Age of Onset Hypertension Mother Cancer Father Heart disease Father Hypertension Brother Malig hypertherm Neg Hx Review of Systems Constitutional: Negative for: fever, chills or weight loss. HEENT: Negative for: head trauma, ear pain, sore throat or acute visual disturbance. Cardiovascular/Respiratory: Positive for shortness of breath/improving Gastrointestinal: Negative for: abdominal pain, nausea, vomiting, diarrhea, or black or bl oody stools. Genitourinary: Negative for: dysuria or urinary problems. Musculoskeletal: Negative for: back pain Skin: Negative for: rash or lesions. Neuro: Negative for: headache, focal muscle weakness, seizure or acute neur ological problems. All systems reviewed and otherwise negative Physical Exam Temp: 36.7 C (98 F) Pulse: 89 Resp: 25 BP: 124/57 SpO2: 97 %(bipap) Vitals Interpretation:normal Pulse Oximetry interpretation: Normal General: Alert, in no apparent distress Eyes: Normal inspection, pupils equal and round, non-icteric CVS: Rate and rhythm normal No murmurs, rubs or gallops Respiratory: Slightly tachypneic coarse breath sound. Abdomen: Soft, non-tender, non-distended No guarding or rebound Skin: Right upper arm dialysis fistula. No rash Musculoskeletal: Left AKA, Neuro: No gross motosensory deficit Medical Decision Making and Emergency Department Course Records Reviewed Old medical records. ED Department Course 3:41 AM PDT Patient with history of diabetes, hypertension, hyperlipidemia, end-stage renal disease currently not on dialysis was transferred from [facility] due to fluid overload. Patient reevaluated currently not in significant respiratory distress. Vacuum aw are about the patient and plan for dialysis in the morning. Will continue BiPAP repeat lab and hospitalist admission. Medical Decision Making as of Aug 25 0341 Fely Aug 24, 2020 2358 Lab review 2357 Total Hemoglobin(!): 7.9 2357 RBC(!): 2.68 2357 Hematocrit(!): 24.8 235 B-TYPE NATRIURETIC PEPTIDE(!): 2,431.10 2358 Na(!): 132 2359 Chloride(!): 97 2359 Carbon dioxide(!): 21 235 Glucose(!): 162 235 BUN(!): 84 235 Creatinine(!): 5.55 2358 Phosphorus(!): 7.4 2358 Troponin I(!!): 8.035 Fri Aug 25, 2020 0104 Patient currently tolerated BiPAP, in no respiratory distress. EKG show T wave inversion in the anterolateral leads. Denies chest pain. Discussed case with hospitalist Dr Desai is concerned regarding the EKG for possible STEMI a nd recommended consulting with ground support equipment mechanic.. EKG was sent to ground support equipment mechanic, Dr Blue for review, he does not think it meet criteria for Doll Surgeon activation. Will start heparin infusion for NSTEMI. Dr. Desai accepted admission. Critical Care Note Performed by: DI ASHBY Authorized by: DI ASHBY Critical care provider statement: Critical care time (minutes): 30 Critical care time was exclusive of: Separately billable procedures and treating other pat ients Critical care was necessary to treat or prevent imminent or life-threatening deterioration of the following conditions: Respiratory, metabolic and cardiac failure. Critical care was time spent personally by me on the following activities: Obtaining histo ry from patient or surrogate, examination of patient, evaluation of patient's response to tr eatment, discussions with consultants, development of treatment plan with patient or surroga te, review of old charts, re-evaluation of patient's condition, pulse oximetry, ordering and review of radiographic studies, ordering and review of laboratory studies and ordering and performing treatments and interventions I assumed direction of critical care for this patient from another provider in my specialty : no Medications heparin in half-normal saline 100 units/mL infusion (11.76 Units/kg/hr 85 kg Intravenous New Bag 08/25/20 0127) heparin 1,000 units/mL injection 2,500-5,000 Units (has no administration in time range) heparin 1,000 units/mL injection 5,000 Units (5,000 Units Intravenous Given 08/25/20 012) lidocaine (XYLOCAINE) 2% jelly (uro-jet) ( Urethral Given 08/25/20 0155) oxyCODONE (ROXICODONE) tablet 10 mg (10 mg Oral Given 08/25/20 0203) Vitals: 08/24/20 23008/24/20 2330 08/25/20 0110 08/25/20199 BP: 113/55 118/57 114/58 Pulse: 82 82 80 Resp: 18 18 18 Temp: SpO2: 96% 96% 95% Weight: 85 kg (187 lb 6.3 oz) Laboratory Evaluation Results Procedure Component Value Ref Range Date/Time Phosphorus [[id number]] (Abnormal) Collected: 08/24/202299 Order Status: Completed Specimen: Blood Updated: 08/24/202345 Phosphorus 7.4 2.3 - 4.8 mg/dL Comprehensive Metabolic Panel [[id number]] (Abnormal) Collected: 08/24/202299 Order Status: Completed Specimen: Blood Updated: 08/24/202345 Na 132 135 - 145 mmol/L K 4.5 3.5 - 4.9 mmol/L Cl 97 99 - 109 mmol/L CO2 21 23 - 32 mmol/L Anion Gap 19 5 - 20 mmol/L Glucose 162 65 - 99 mg/dL BUN 84 8 - 25 mg/dL Creatinine 5.55 0.70 - 1.30 mg/dL BUN/Creatinine Ratio 15 Calcium 7.8 8.5 - 10.5 mg/dL Protein, Total 6.2 6.3 - 8.2 g/dL Albumin 3.8 3.3 - 4.8 g/dL Globulin 2.4 1.3 - 4.9 g/dL A/G Ratio 1.6 1.0 - 2.4 BILIRUBIN, TOTAL 0.4 0.1 - 1.5 mg/dL ALK PHOS 86 35 - 115 U/L AST 22 10 - 45 U/L ALT 12 10 - 65 U/L Estimated GFR 10 >60 mL/min/1.73m2 Troponin I [[id number]] (Abnormal) Collected: 08/24/202299 Order Status: Completed Specimen: Blood Updated: 08/24/202345 Troponin I 8.035 0.00 - 0.04 ng/mL Magnesium [[id number]] Collected: 08/24/202299 Order Status: Completed Specimen: Blood Updated: 08/24/202345 Magnesium 2.1 1.7 - 2.4 mg/dL B Type Natriuretic Peptide [[id number]] (Abnormal) Collected: 08/24/202299 Order Status: Completed Specimen: Blood Updated: 08/24/207 BNP 2,431.10 0 - 100 pg/mL Protime INR [[id number]] Collected: 08/24/202301 Order Status: Completed Specimen: Blood Updated: 08/24/202324 INR 1.2 CBC with Differential [[id number]] (Abnormal) Collected: 08/24/202299 Order Status: Completed Specimen: Blood Updated: 08/24/202311 WBC 10.66 3.80 - 11.00 K/uL Red Blood Cells 2.68 4.20 - 5.70 M/uL Hemoglobin 7.9 13.2 - 17.0 g/dL Hematocrit 24.8 39.0 - 50.0 % MCV 92.5 80.0 - 100.0 fl MCH 29.5 27.0 - 34.0 pg MCHC 31.9 32.0 - 35.5 g/dL RDW-SD 49.4 37 - 53 fl Platelet Count 327 150 - 400 K/uL MPV 10.5 fl Diff Type AUTOMATED % nRBC 0.0 0 /100WBC % Neutrophils 93.80 % IMMATURE GRANULOCYTE 0.40 % % Lymphocytes 2.60 % Monocyte % 2.20 % Eosinophils % 0.80 % Basophils % 0.20 % Neutrophils, Absolute 10.01 1.90 - 7.40 K/uL IMMATURE GRANS AB 0.04 0.00 - 0.07 K/uL Absolute Lymphocytes 0.28 1.00 - 3.90 K/uL Absolute Monocytes 0.23 0.00 - 0.80 K/uL Eosinophils, Absolute 0.08 0.00 - 0.50 K/uL Basophils, Absolute 0.02 0.00 - 0.10 K/uL Available Labs reviewed and interpreted by me. Radiology and EKG Evaluation Imaging Results XR Chest AP Portable (Final result) Result time 08/24/20 23:28:47 Final result by Nelson Gutierrez MD (08/24/20 23:28:47) Impression: Mixed interstitial and ground-glass opacities seen bilaterally, right greater than left, with a right-sided effusion. This may reflect pulmonary edema, though atypical or viral infection could appear similar. Final Report Signed by: Idris Gutierrez, Nelson Sign Date/Time: 08/24/2020 11:28 PM Narrative: CHEST PORTABLE ONE VIEW CLINICAL INFORMATION: Shortness of breath. COMPARISON: ECHO OUTSIDE INTERPRETATION (03/26/2016); XR CHEST PA AND LATERAL (06/24/2013); XR CHEST AP PORTABLE (11/23/2012); FINDINGS: Lung volumes are adequate. Bilateral mixed interstitial and ground-glass opacities, right greater than left. Modest right pleural effusion.. No pneumothorax. Cardiomediastinal silhouette unremarkable. Pulmonary vascularity within normal limits. No acute osseous abnormality. EKG showed normal sinus rhythm rate of 76 Low-voltage QRS Complete right bundle branch block. T wave inversion in the anterolateral leads. No acute ST elevation. Normal interval. Available radiology studies reviewed and interpreted contemporaneously by me. Diagnosis 1. ESRD needing dialysis ([facility]) 2. Hypervolemia, unspecified hypervolemia type 3. NSTEMI (non-ST elevated myocardial infarction) ([facility]) 4. Anemia of chronic renal failure, unspecified CKD stage 5. Congestive heart failure, unspecified HF chronicity, unspecified heart failure type ([facility] ) Disposition: ED Disposition ED Disposition Condition Comment Admit Clinical impression: ESRD needing dialysis ([facility]) [042031] Clinical impression: Hypervolemia, unspecified hypervolemia type [[id number]] Clinical impression: Elevated troponin I level [[id number]] Admitting provider: SALLIE HOSPITALIST [[id number]] Expected patient class: Inpatient [101] Level of service: Medical Discharge Medications: ED Prescriptions None Procedures: Procedures Attending Provider Note: ISheyla MD personally performed the services described in this documentation, as scribed by Sheyla Sevilla MD in my presence, and it is both ac curate and complete. Chart Reviewed and Completed. Scribe: Charlie Sevilla MD,Scribe, scribing for and in the presence of Sheyla Sevilla MD. Completed by: Sheyla Sevilla MD, Scribe 08/25/2020 3:41 AM PDT Sheyla Sevilla MD 08/25/20 0341 aya Mario RN - 08/24/2020 10:50 PM PDTBed: ED06 Expected date: Expected time: Means of arrival: Comments: [facility] in this encounter Miscellaneous Notes Plan of Care - Nathaniel Garcia RN - 09/01/2020 8:00 AM PDT Problem: Adult Inpatient Plan of Care Goal: Plan of Care Review Outcome: Ongoing, progressing Pt to discharge to home via [facility]. Daughter will meet pt at home and transport pt to [facility]. Daughter and pt updated as to the plan of care. Chart audit complete. Electronically sign ed by Nathaniel Garcia RN at 09/01/2020 8:01 AM PDTPlan of Care - Essie Osei RN - 09/01/2020 7:32 AM [id number]: called [facility] transport to see if they had an 1100 wheelchair orange picking supervisor available- they do not have anything available until 100. I called [facility] to see if they had a wheelchair orange picking supervisor available this morning to [place]- their earliest is 1245. 0740: asked Jim CEVALLOS if she thinks pt can pivot transfer into a regular cab, and then have his daughter meet at the cab with a wheelchair- she didn't believe he would be able to. Ca lled [facility] to set up transport- I tried to get him set up where they can take him straight to . They said they only had a 1000 and 300 available. Pt set up with 1000 orange picking supervisor. Update nestor Fernandez RN and Dr Dalton. 0800: updated Marina Coordinator of discharge. Care Management Final Discharge Plan Readmission Risk: HIGH Discharge Plan Planned Disposition: Home. PCP: Jessenia Bergman Patient/Family Notified: yes. Transportation will be provided by: [facility]. Transportation Date/Time: 09/01/20 1000. Community Support Services Current Outpt/Agency/Support Groups: HD. Community Agency Name: [facility]. Equipment Durable Medical Equipment Provider: [facility]. Equipment Used at Home: wheelchair, oxygen Electronically signed: Essie Osei RN 09/01/2020 7:56 AM PDT lan of Chely Flores RN - 09/01/2020 12:53 AM PDTPatient rest well during shift. VVS throughout joselo ft. PRN pain meds administer see JAN. No changes from shift assessment. End of shift chart ilsa camargo complete. Chely Holloway RN Problem: Adult Inpatient Plan of Care Goal: Plan of Care Review Outcome: Ongoing, progressing Patient will be discharged tomorrow. Patient didn't have any questions. Patient was concer sindy with making [facility] [place]. Problem: Gas Exchange Impaired Goal: Optimal Gas Exchange Outcome: Ongoing, progressing Patient on CPAP for half of the night. o2 sats in high 90s. Patient now on 4 L of o2 nasal canula. lan of Charley Frias RN - 08/31/2020 6:10 PM PDT Problem: Adult Inpatient Plan of Care Goal: Plan of Care Review Outcome: Ongoing, progressing Pt frustrated today wanting to DC. Pt was awaiting oncology recommendation, pt to follow u p outpt. No hemoptysis today, no swallowing difficulties. Pt taking 15mg fredy for foot pain. Pt's family can pick pt up tomorrow (09/01) between 1300 and 1500. Pt will need to dialyze p rior to DC, or reschedule outpatient. Electronically signed by Charley Gaffney RN at 08/31 6:24 PM PDTPlan of Essie Strickland RN - 08/31/2020 11:17 AM [id number]: round ed with Dr Dalton: pt not medically ready for discharge today, possibly tomorrow. Pt's first chair time is at 130 tomorrow if discharged tomorrow- he would need to discharge earlier en ough to get to that appointment. If pt is unable to discharge until after, he will need to stay to get HD in the hospital on Friday (pt on TTS schedule in the hospital) and then can discharge after HD over the weekend to go to first chair time on Friday instead. Will deci de tomorrow morning. 1120: updated Marina HD Coordinator of plan of care. lan of Chely Bassett RN - 08/31/2020 2:22 AM P DTPatient rested well over night. Patient is scheduled for a biopsy in the AM. Patient SBP w as in the 70s once rechecked and was back up in the high 90s. BP stable the rest of the shif t. No other acute changes from shift assessment. End of shift chart check complete. Chely Holloway RN Problem: Skin Injury Risk Increased Goal: Skin Health and Integrity Outcome: Ongoing, progressing Patient encouraged to do frequent weight shift. Weight shift assistance offered q2 hours. No new skin breakdown noted from shift assessment. Will continue to monitor. Problem: Adult Inpatient Plan of Care Goal: Optimal Comfort and Wellbeing Outcome: Ongoing, progressing Patient is resting in bed. Patient complains of pain PRN pain meds administer see JAN. Jacky camp continue to monitor pain. lan of Marciano Gee RN - 08/30/2020 4:51 PM PDTPt has been resting thro ughout the day. Complaints of nausea controlled with PRN Zofran. Complaints of pain controll ed with PRN pain medicine. Eating and drinking well. Shift chart check complete. Xuana lly signed by Marciano Celis RN at 08/30/2020 5:03 PM PDTPlan of Marciano Gee RN - 08/30/2020 11:20 AM PDT Problem: Adult Inpatient Plan of Care Goal: Optimal Comfort and Wellbeing Outcome: Ongoing, progressing Pt verbalizes needs and uses call light appropriately. Reports being comfortable with PRN pain medicine and understands POC for wellbeing while hospitalized. lan of Chely Wahl RN - 08/30/2020 2:08 AM PDTPatient complained of chest pain at 2125. Nitro adm inistered and EKG ordered. No changes in EKG. Nitro relived chest pain. Patient NPO at 0000. PRN pain medication administered q4 hours. No other acute changes noted from shift assessme nt. End of shift chart check complete. Chely Holloway RN Problem: Skin Injury Risk Increased Goal: Skin Health and Integrity Outcome: Ongoing, progressing Patient up to bathroom multiple times during shift. Frequent weight shifts encouraged. Q2 turns during shift. No changes in skin from shift assessment. Problem: Fall Injury Risk Goal: Absence of Fall and Fall-Related Injury Outcome: Ongoing, progressing Call light and personal items in reach, bed low and locked, side rails x2 up, patient call appropriately as needed. lan of Marciano Gee RN - 08/29/2020 6:03 PM PDTPt has been resting comfor tably throughout the day. No complaints of nausea. Pt reported pain at Left above knee amput ation. Pain controlled with PRN pain medicine. Eating and drinking well. Shift chart check c omplete lan of Sera Monson PT - 08/29/2020 11:40 AM PDTPhysical Therapy Initial Evaluation, Discharge Note Recommended discharge disposition: home with assist Post discharge physical therapy recommendation: no further PT Equipment Recommendations: none Barriers to community-based discharge None Planned Interventions: Recommended Frequency: one time visit Summary: Patient agreed to PT evaluation. He reported he lives with his daughter who is hi s caregiver. He is wheelchair bound and is able to propel self independently. He has no step s to enter home. He has no concerns regarding home mobility. He was able to demonstrated saf e transfer with wheelchair placed perpendicular to bed. No adverse response to PT interventi on. OK to discharge home when medically stable. Patient scored 18/24 on AMPAC. Living Environment Lives With: child(nusrat), adult Living Arrangements: house Home Accessibility: no concerns Number of Stairs to Enter Home: 0 Number of Stairs Within Home: 0 Transportation Available: family or friend will provide Prior Functional Level Comment: Daughter is Rosario Caregiver. WC bound but able to transfer independently. Bed Mobility Additional Documentation: supine to/from sit Assistive Device: HOB elevated Supine to Sit, Level of Meridian: independent Sit to Supine, Level of Meridian: not tested Transfers Transfers Comments: Used stand-pivot transfer to get to wheelchair. He was able to set up h is wheelchair safely in preparation for transfer. Additional Documentation: sit to/from stand, bed to/from chair Bed-Chair, Level of Meridian: independent Chair-Bed, Level of Meridian: not tested [id number]-[id number], Assistive Device: none Sit-Stand, Level of Meridian: independent Stand-Sit, Level of Meridian: independent Gait Gait Comments: Not tested Balance Sitting Balance: Static: good balance Sitting Balance: Dynamic: good balance lan of Marciano Gee RN - 08/29/2020 9:31 AM PDT Problem: Adult Inpatient Plan of Care Goal: Optimal Comfort and Wellbeing Outcome: Ongoing, progressing Pt verbalizes needs. Pain controlled with PRN pain medicine. Reports being comfortable and understands POC for wellbeing while hospitalized. lan of Essie Gong RN - 08/29/2020 8:44 AM [id number]: messaged Marina HD Coordinator to see if a chair time can be set up today. She said they have a chair time. Updated AVS with informa tion- notified Dr Dalton of chair time set up. 0855: Dr Dalton informed me that cardiology wants to do a cardiac workup and possible cath w hile here. I notified Marina to push first day to Friday, tentatively. Electronically estiven d by Essie Osei RN at 08/29/2020 8:56 AM PDTPlan of Randal Ennis RN - 6:48 AM PDTPt medicated for pain multiple times this shift, see MAR. Pt says she's feeling better this morning. VSS. Chart check complete. Randal Gusman RN lan Randal Murphy RN - 08/29/2020 3:14 AM PDT Problem: Adult Inpatient Plan of Care Goal: Optimal Comfort and Wellbeing Outcome: Ongoing, progressing Pt being medicated fr pain with PRN pain medications lan of Maura Espino RN - 08/28/2020 5:33 PM PDT Patient has been resting well today. He tolerated HD well and has been eating and drinking small amounts. Assessment unchanged from AM. Shift chart check complete. lan of Sera Momin RN - 08/28/2020 1:37 PM PDTCare Management Follow-Up Readmission Risk: HIGH Current Discharge Plan Anticipated Discharge Disposition: home with assist(buffy) Expected DC Date: 08/29/2020 Barriers to Discharge: Steps Taken Toward Discharge: Next Steps: Community Support Services Current Outpt/Agency/Support Groups: none Community Agency Name: Discharge Transportation Transportation Needs: Notes: Met with pt, he will return home with his daughter who is also his paid rosario caregiver. Pt is w/c bound, already on O2. Marina/XAVI is working on chair time for pt. Daughter will transport Electronically signed: Sera Wesley RN 08/28/2020 1:37 PM PDT lan of Essie Strickland RN - 08/28/2020 11:22 AM [id number]: faxed Marina HURLEY Coordinator ronnie per her request. lan o f Maura Espino RN - 08/28/2020 7:41 AM PDT Problem: Adult Inpatient Plan of Care Goal: Optimal Comfort and Wellbeing Outcome: Ongoing, progressing Patient able to verbalize needs. Patient reports being comfortable and understanding plan of care regarding wellbeing while hospitalized. lan of Yanni Valdez RN - 08/27/2020 10:44 PM PDT Problem: Skin Injury Risk Increased Goal: Skin Health and Integrity Outcome: Ongoing, progressing Pt repositioned q. 2 hours to promote skin integrity. Problem: Adult Inpatient Plan of Care Goal: Plan of Care Review Outcome: Ongoing, progressing Pt notified of HD at 0700. VM left for dietary to bring breakfast ALEXI in AM . Electronica lly signed by Yanni Campos RN at 08/27/2020 10:45 PM PDTPlan of Care - Gayathri Villela RN - 08/27/2020 10:22 AM [id number]: pt nauseous, had episode of vomiting, switched from Bipa p to 6L nasal cannula to prevent aspiration. SpO2 mid 90s. 1000: report given to Jalen CEVALLOS, who is resuming care. Care plan note: Problem: Adult Inpatient Plan of Care Goal: Plan of Care Review Outcome: Ongoing, progressing Plan of care and daily goals discussed with patient; pt's questions answered, all care exp lained. Problem: Adult Inpatient Plan of Care Goal: Absence of Hospital-Acquired Illness or Injury Outcome: Ongoing, progressing Safe environment maintained. Problem: Adult Inpatient Plan of Care Goal: Optimal Comfort and Wellbeing Outcome: Ongoing, progressing Patient is calm, pleasant and cooperative. Wellness bundle continued. Problem: Fall Injury Risk Goal: Absence of Fall and Fall-Related Injury Outcome: Ongoing, progressing Fall prevention bundle continued. Problem: Skin Injury Risk Increased Goal: Skin Health and Integrity Outcome: Ongoing, progressing Patient on SPOT bundle, including Q2 hour turns. Problem: Infection Goal: Infection Symptom Resolution Outcome: Ongoing, progressing Patient afebrile. Will continue to monitor MEWS/vitals for s/s of infection. Problem: Gas Exchange Impaired Goal: Optimal Gas Exchange Outcome: Ongoing, progressing Patient currently on nasal cannula, which he is tolerating well, with SpO2 >92%, no signs of dyspnea. Problem: Fluid Volume Excess Goal: Fluid Balance Outcome: Ongoing, progressing Patient still on 1.2L FR. Torsemide given as ordered, moss catheter in place. Electronica lly signed by Gayathri Villela RN at 08/27/2020 10:27 AM PDTPlan of [place] - Essie Osei RN - 08/27/2020 9:39 AM PDTCare Management Initial Assessment Readmission Risk: HIGH Pt admitted with NSTEMI. He lives at home with his daughter and she is his palliative care nurse. He is mostly wheelchair bound and wears oxygen, provided by [facility]. Spoke about reha bs if therapies recommend- he said he will not go and he wants to return home. Status Prior to Admission or Illness Arrival From: admitted as an inpatient, home or self-care Lives With: child(nusrat), adult Living Arrangements: house Caregiver For: no one, unable/limited ability to care for self Patient s Caregiver: daughter. Functional Status: needs assistance. Transportation Available: family or friend will provide Care Management Concerns Readmission Within Last 30 Days: no previous admission in last 30 days PCP: Jessenia Bergman Contact Information Family Contact Information: Name: [place] . [place] Needs Assessment Current Outpt/Agency/Support Groups: none Anticipated Changes Related to Illness: none Concerns to be Addressed: denies needs/concerns at this time Services Anticipated at Discharge: home health care Equipment Used at Home: wheelchair, oxygen Durable Medical Equipment Provider: [facility]. Initial Plan Anticipated Discharge Disposition: home with assist Electronically signed: Essie Osei RN 08/27/2020 9:39 AM PDT lan of Danisha Aviles RN - 08/26/2020 11:23 PM PDTProblem: Skin Injury Risk Increased Goal: Skin Health and Integrity Outcome: Ongoing, progressing Pt has pup on coccyx, foam dressing on L arm skin tear and waffle mattress to preserve skin integrity. Problem: Fall Injury Risk Goal: Absence of Fall and Fall-Related Injury Outcome: Ongoing, progressing Pt remains free from falls. Call light within reach. Problem: Gas Exchange Impaired Goal: Optimal Gas Exchange Outcome: Ongoing, not progressing Pt does not tolerate being off of BiPAP for extended period of time as WOB is severe. BiPA P O2 increased to 55% to maintain O2 sats > 90%. 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 Pt on 1.2l FR. Report given to BAN Don who will be assuming care for the pt. All questions answered and concerns addressed. Chart check complete. Danisha Mercer RN lan of Jalen Reynolds RN - 08/26/2020 2:18 PM PDTProblem: Gas Exchange Impaired Goal: Optimal Gas Exchange Outcome: Ongoing, progressing Note: Pt remains on bipap, able to tolerate small periods off bipap for meals, continues to have SOB/increased WOB when off bipap Problem: Fluid Volume Excess Goal: Fluid Balance Outcome: Ongoing, progressing Note: Pt had HD today, remains on bipap, lasix discontinued lan of [place] - Poonam Wright RN - 08/26/2020 12:10 AM PDT Problem: Skin Injury Risk Increased Goal: Skin Health and Integrity Outcome: Ongoing, progressing Intervention: Optimize Skin Protection Flowsheets (Taken 08/26/20206) Pressure Reduction Techniques: weight shift assistance provided Pressure Reduction Devices: elbow protectors utilized positioning supports utilized Problem: Adult Inpatient Plan of Care Goal: Plan of Care Review Outcome: Ongoing, progressing Flowsheets (Taken 08/26/20206) Plan of Care Reviewed With: patient Goal: Absence of Hospital-Acquired Illness or Injury Outcome: Ongoing, progressing Intervention: Identify and Manage Fall Risk Note: Call light by side, personal belongings at bedside, room kept clutter free Goal: Optimal Comfort and Wellbeing Outcome: Ongoing, progressing Intervention: Monitor Pain and Promote Comfort Note: Pain medications given as ordered Problem: Fall Injury Risk Goal: Absence of Fall and Fall-Related Injury Outcome: Ongoing, progressing Intervention: Identify and Manage Contributors to Fall Injury Risk Flowsheets (Taken 08/26/20206) Self-Care Promotion: independence encouraged BADL personal objects within reach BADL personal routines maintained Problem: Gas Exchange Impaired Goal: Optimal Gas Exchange Outcome: Ongoing, progressing Intervention: Optimize Oxygenation and Ventilation Flowsheets (Taken 08/26/20206) Airway/Ventilation Management: calming measures promoted airway patency maintained lan of [place] - Jalen Mayer RN - 08/25/2020 5:52 PM PDTProblem: Gas Exchange Impaired Goal: Optimal Gas Exchange Outcome: Ongoing, progressing Note: Pt remains bipap dependent, complains of SOB when off, tolerated mask off with meals and nasal cannula Problem: Fluid Volume Excess Goal: Fluid Balance Outcome: Ongoing, progressing Note: Pt to receive dialysis today, fluid restriction (1.2L) in place lan of Care - Seven Marcelino MD - 08/25/2020 8:25 AM PDTPatient seen and examined briefly as patient has been seen by night hospitalist very early this morning. Overnight the patient has cont inued to need to be on BiPAP, has not had any more bleeding, Trop I maximized at 8.035 and t rend has been downward, CK-MB maximized at 9.0 and again trend has been downward, still shor t of breath still on BiPAP no more bleeding, hematocrit 7.9, we will give 1 unit during dial ysis, discussed patient with Dr. Lopez who did not think given need for dialysis as well as episode of bleeding that any interventions can be done at this point, will manage medica lly. Discussed patient with nephrology Dr. acuna who sees the patient regularly and patient will be having dialysis today and tomorrow and blood transfusion of 1 unit today and tomorr ow. Orders have been done for the blood transfusion, I discussed the patient with Dr. Jackelyn mancilla of ENT with his 2-month history of bleeding down to the back of his throat, unfortunate at this point with the patient being very unstable he cannot do much and we will not even be a ble to look down into his nasopharynx or throat given that he is on BiPAP. He is on over weekend and I can call him over the weekend once the patient is more stable so he can look at what has been bleeding. I also talked to the patient's daughter Charlotte at [phone] a bout the plan of care and she verbalized understanding and agreement. lan of Care - Mikey Caal RN - 08/25/2020 6:54 AM PDT Problem: Adult Inpatient Plan of Care Goal: Plan of Care Review 08/25/2020 0614 by Mikey Caal RN Plan of care reviewed with pt. Pt understands he will receive dialysis in AM, and he's on a heparin gtt for a potential NSTEMI. Pt understands he's NPO. He will receive an EKG and r enal U/S in AM. Problem: Tissue Perfusion Altered Goal: Improved Tissue Perfusion Outcome: Ongoing, progressing Pt received Lasix in ED and will have dialysis in AM. NSTEMI is nonemergent, per , and pt was on Heparin gtt until episode of hemoptysis x1 (pt coughed up blood clot and small pete unt of blood, stating he's been doing that "on and off for months" but hasn't gotten around to seeing a doctor about it yet). notified. Heparin gtt dc'd and chest CT ordered. Pt on BiPap while sleeping. Pt to receive HD in AM (has R AV fistula that was placed in [place] t 2018, but doesn't have regular dialysis). Chart check complete. documented in this encounter Plan of Treatment +--------+ + + + + | Date | Type | Specialty | Care Team | Description | +--------+ + + + + | 09/19/ | Office | Cardiology | BlasMarch, | | 2019 | Visit | | DESK REPORTER [address] | | | | | | [address] [place], | | | | | | [place] [address] | | | | | | [phone] | | | | | | | [...] [place] | | | | | | [address] | | | | | | | | +--------+ + + + + | 10/30/ | Virtual | Nephrology | Farrukh Acuna MD | | | 2019 | Office | | [address] | | | | Visit | | [address] | | | | | | [address] | | | | | | | | +--------+ + + + + + +------+--------+ + + | Name | Type | Priori | Associated Diagnoses | Date/Time | | | | ty | | | + +------+--------+ + + | ED INFORMATION | BENI | Routin | | 08/24/2020 10:50 PM | | EXCHANGE | | e | | PDT | + +------+--------+ + + + + +--------+ + + | Name | Type | Priori | Associated Diagnoses | Order Schedule | | | | ty | | | + + +--------+ + + | Surgical Pathology | Pathology | Routin | | One Time for 1 | | Exam | and | e | | Occurrences starting | | | Cytology | | | 08/31/2020 until | | | | | | 08/31/2020 | + + +--------+ + + + + +--------+ + + | Name | Type | Priori | Associated Diagnoses | Order Schedule | | | | ty | | | + + +--------+ + + | Ambulatory referral | Outpatient | Routin | Squamous cell | Ordered: 09/01/2020 | | to Radiation | Referral | e | carcinoma of right | | | Oncology | | | tonsil (HCC) | | + + +--------+ + + | Ambulatory Referral | Outpatient | Routin | Squamous cell | Ordered: 09/01/2020 | | to [facility]NT | Referral | e | carcinoma of right | | | | | | tonsil (HCC) | | + + +--------+ + [...] | | | 22:50? | | | ANDUJAR | | | , | | | PORFIRIO | | | | | | F?MRN: | | | | | | [id number] | | | [id number] | | | riteri | | | [...] | | | St. | | | [facility] | | | y | | | [...] | | | care | | | heating unit installer | | | to | | | offer | | | inhale | | | r | | | traini | | | ng.6/2 | | | 8/18 | | | 12:00 | | | AM | | | [facility] | | | y | | | [...] | | | [phone] | | | [phone] | | | .These | | | [...] | | | St. | | | [facility] | | | y | | | [...] | | | St. | | | [facility] | | | y | | | [...] | | | St. | | | [facility] | | | y H. | | [...] | | | St. | | | [facility] | | | y H. | | [...] | | | St. | | | [facility] | | | y H. | | [...] | | | St. | | | [facility] | | | y H. | | [...] | | | St. | | | [facility] | | | y H. | | [...] | | | St. | | | [facility] | | | y H. | | [...] | | | St. | | | [facility] | | | y H. | | [...] | | | St. | | | [facility] | | | y H. | | [...] | | | St. | | | [facility] | | | y H. | | [...] | | | St. | | | [facility] | | | y H. | | [...] | | | St. | | | [facility] | | | y H. | | [...] | | | [phone] | | | [id number] | | | [phone] | | | [...] [email or web address] | | | m | +---+--------+ documented in this encounter Results POC Glucose (09/01/2020 6:29 AM PDT) + + + + + + | Component | Value | Ref Range | Performed | Pathologist | | | | | At | Signature | + + + + + + | Glucose, | 115 (H)Comment: Testing | 65 - 99 mg/dL | [facility] | | | POC | performed at [facility] | | LABORATORY | | | | [address];[place] | | | | | | [address] | | | | + + + + + + + + | Specimen | + + | | + + + + + + + | Performing | Address | City/State/Zipcode | Phone Number | | Organization | | | | + + + + + | [facility] | [address] | [place] [address] | [phone] | + + + + + POC Glucose (08/31/2020 8:41 PM PDT) + + + + + + | Component | Value | Ref Range | Performed | Pathologist | | | | | At | Signature | + + + + + + | Glucose, | 204 (H)Comment: Testing | 65 - 99 mg/dL | [facility] | | | POC | performed at [facility];[address] | | LABORATORY | | | | [address];[place] | | | | | | [address] | | | | + + + + + + + + | Specimen | + + | | + + + + + + + | Performing | Address | City/State/Zipcode | Phone Number | | Organization | | | | + + + + + | [facility] | [address] | [place] [address] | [phone] | + + + + + POC Glucose (08/31/2020 4:31 PM PDT) + + + + + + | Component | Value | Ref Range | Performed | Pathologist | | | | | At | Signature | + + + + + + | Glucose, | 103 (H)Comment: Testing | 65 - 99 mg/dL | [facility] | | | POC | performed at [facility];[address] | | LABORATORY | | | [address];[place] | | | | | | [address] | | | | + + + + + + + + | Specimen | + + | | + + + + + + + | Performing | Address | City/State/Zipcode | Phone Number | | Organization | | | | + + + + + | [facility] | [address] | [place] [address] | [phone] | + + + + + POC Glucose (08/31/2020 12:19 PM PDT) + + + + + + | Component | Value | Ref Range | Performed | Pathologist | | | | | At | Signature | + + + + + + | Glucose, | 173 (H)Comment: Testing | 65 - 99 mg/dL | [facility] | | | POC | performed at [facility];[address] | | LABORATORY | | | | [address];[place], [place] | | | | | | [address] | | | | + + + + + + + + | Specimen | + + | | + + + + + + + | Performing | Address | City/State/Zipcode | Phone Number | | Organization | | | | + + + + + | [facility] [facility] | [address] | [place] [address] | [phone] | + + + + + Surgical Pathology Exam (08/31/2020 7:00 AM PDT) + + | Specimen | + + | Tissue - Specimen | | from tonsil | | (specimen) | + + + + + | Narrative | Performed At | + + + | THIS IS | [place] [facility] | | AN ADDENDUM REPORT SPECIMEN(S): A TONSIL, RT SPECIMEN SOURCE:A. | INCYTE | | TONSIL, RT CLINICAL HISTORY:No preop or clinical information is given | | | on requisition. FROZEN SECTION DIAGNOSIS:A. 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 (Dr. Browning, 08/31/20, 7:19 AM) Frozen section | | | diagnosis called to Dr. Barba. Frozen section performed at [facility]. | | | AI (under the direct [...] As part of the | | | [employer] Program, this case was reviewed by another member of | | | [facility]. (AMB) MICROSCOPIC EXAMINATION:Histologic sections | | [...] interpretation was performed by | | | [facility], [address], | | | [place], [place] ([place]ed[place]: Pastor Browning M.D.; CLIA#: | | | [id number]).The technical component was performed by [facility] | | | [facility], [address] [place] [address] (Screedman: | | | Kerry Michel MD; CLIA# [id number]). COMMENT:Surrogate HPV marker p16 is | | [...] | |The professional interpretation was performed by [facility], [address] ([place]edman: Pastor Browning M.D.; CLIA#: [id number]). | | |The technical component was performed by [facility], [address] [place] [address] ([place]: Kerry Michel MD; CLIA# [id number]). | | | | | |COMMENT: | [...] | + +---------+ + + POC Glucose (08/31/2020 6:10 AM PDT) + + + + + + | Component | Value | Ref Range | Performed | Pathologist | | | | | At | Signature | + + + + + + | Glucose, | 122 (H)Comment: Testing | 65 - 99 mg/dL | [facility] | | | POC | performed at [facility];[address] | | LABORATORY | | | | [address];[place] | | | | | | [address] | | | | + + + + + + + + | Specimen | + + | | + + + + + + + | Performing | Address | City/State/Zipcode | Phone Number | | Organization | | | | + + + + + | [facility] | [address] | [place] [address] | [phone] | + + + + + Basic Metabolic Panel (08/31/2020 4:32 AM PDT) + + + + + [...] | | | | | performed at [facility], [address] | | | | | [facility], | | | | | | [place] [address] | | | | + + + + + + + + | Specimen | + + | Blood | + + + + + + + | Performing | Address | City/State/Zipcode | Phone Number | | Organization | | | | + + + + + | [facility] | [address] | [place] [address] | [phone] | + + + + + CBC no Differential (08/31/2020 4:32 AM PDT) + + + + + [...] | [facility] | | | | [facility] | | LABORATORY | | | | performed at [facility], [address] | [address], | | | | | | [place] [address] | | | | + + + + + + + + | Specimen | + + | Blood | + + + + + + + | Performing | Address | City/State/Zipcode | Phone Number | | Organization | | | | + + + + + | [facility] | [address] | [place] [address] | [phone] | + + + + + POC Glucose (08/30/2020 11:22 PM PDT) + + + + + + | Component | Value | Ref Range | Performed | Pathologist | | | | | At | Signature | + + + + + + | Glucose, | 262 (H)Comment: Testing | 65 - 99 mg/dL | [facility] | | | POC | performed at [facility];[address] | | LABORATORY | | | | [address];[place] | | | | | | [address] | | | | + + + + + + + + | Specimen | + + | | + + + + + + + | Performing | Address | City/State/Zipcode | Phone Number | | Organization | | | | + + + + + | [facility] | [address] | [place] [address] | [phone] | + + + + + POC Glucose (08/30/2020 9:02 PM PDT) + + + + + + | Component | Value | Ref Range | Performed | Pathologist | | | | | At | Signature | + + + + + + | Glucose, | 138 (H)Comment: Testing | 65 - 99 mg/dL | [facility] | | | POC | performed at [facility];[address] | | LABORATORY | | | | [address];[place] | | | | | | [address] | | | | + + + + + + + + | Specimen | + + | | + + + + + + + | Performing | Address | City/State/Zipcode | Phone Number | | Organization | | | | + + + + + | [facility] | [address] | [place] [address] | [phone] | + + + + + POC Glucose (08/30/2020 11:27 AM PDT) + + + + + + | Component | Value | Ref Range | Performed | Pathologist | | | | | At | Signature | + + + + + + | Glucose, | 88Comment: Testing | 65 - 99 mg/dL | [facility] | | | POC | performed at [facility];[address] | | LABORATORY | | | | [address];[place], [place] | | | | | | [address] | | | | + + + + + + + + | Specimen | + + | | + + + + + + + | Performing | Address | City/State/Zipcode | Phone Number | | Organization | | | | + + + + + | [facility] | [address] | [place] [address] | [phone] | + + + + + POC Glucose (08/30/2020 7:25 AM PDT) + + + + + + | Component | Value | Ref Range | Performed | Pathologist | | | | | At | Signature | + + + + + + | Glucose, | 105 (H)Comment: Testing | 65 - 99 mg/dL | [facility] | | | POC | performed at [facility];[address] | | LABORATORY | | | | [address];[place] | | | | | | [address] | | | | + + + + + + + + | Specimen | + + | | + + + + + + + | Performing | Address | City/State/Zipcode | Phone Number | | Organization | | | | + + + + + | [facility] | [address] | [place] [address] | [phone] | + + + + + POC Glucose (08/30/2020 4:48 AM PDT) + + + + + + | Component | Value | Ref Range | Performed | Pathologist | | | | | At | Signature | + + + + + + | Glucose, | 79Comment: Testing | 65 - 99 mg/dL | [facility] | | | POC | performed at [facility];[address] | | LABORATORY | | | | [address];[place], [place] | | | | | | [address] | | | | + + + + + + + + | Specimen | + + | | + + + + + + + | Performing | Address | City/State/Zipcode | Phone Number | | Organization | | | | + + + + + | [facility] | [address] | [place] [address] | [phone] | + + + + + Basic Metabolic Panel (08/30/2020 4:01 AM PDT) + + + + + [...] 26 | 23 - 32 mmol/L | [facility] | | | | | | LABORATORY | | + + + + + + | Anion Gap | 12 | 5 - 20 mmol/L | [facility] | | | | | | LABORATORY | | + + + + + + | Glucose | 79 | 65 - 99 mg/dL | [facility] | | | | | | LABORATORY | | + + + + + + | BUN | 42 (H) | 8 - 25 mg/dL | [facility] | | | | | | LABORATORY | | + + + + + + | Creatinine | 3.61 (H) | 0.70 - 1.30 | [facility] | | | | | mg/dL | LABORATORY | | + + + + + + | BUN/Creatin | 12 | | [facility] | | | ine Ratio | | | LABORATORY | | + + + + + + | Calcium | 7.7 (L) | 8.5 - 10.5 | [facility] | | | | | mg/dL | LABORATORY | | + + + + + + | Estimated | 16 (L)Comment: GFR <60: | >60 | [facility] [...] | | | | | performed at [facility];[address] | | | | | | [address];[place], [place] | | | | | | [address] | | | | + + + + + + + + | Specimen | + + | Blood | + + + + + + + | Performing | Address | City/State/Zipcode | Phone Number | | Organization | | | | + + + + + | [facility] | [address] [facility] | [place] [address] | [phone] | + + + + + CBC no Differential (08/30/2020 4:01 AM PDT) + + + + + + | Component | Value | Ref Range | Performed | Pathologist | | | | | At | Signature | + + + + + + | WBC | 10.87 | 3.80 - 11.00 | [facility] | | | | | K/uL | LABORATORY | | + + + + + + | Red Blood | 3.33 (L) | 4.20 - 5.70 | [facility] | | | Cells | | M/uL | LABORATORY | | + + + + + + | Hemoglobin | 9.6 (L) | 13.2 - 17.0 | [facility] | | | | | g/dL | LABORATORY | | + + + + + + | Hematocrit | 31.0 (L) | 39.0 - 50.0 % | [facility] | | | | | | LABORATORY | | + + + + + + | MCV | 93.1 | 80.0 - 100.0 fl | [facility] | | | | | | LABORATORY | | + + + + + + | MCH | 28.8 | 27.0 - 34.0 pg | [facility] | | | | | | LABORATORY | | + + + + + + | MCHC | 31.0 (L) | 32.0 - 35.5 | [facility] | | | | | g/dL | LABORATORY | | + + + + + + | RDW-SD | 50.4 | 37 - 53 fl | [facility] | | | | | | LABORATORY | | + + + + + + | Platelet | 251 | 150 - 400 K/uL | [facility] | | | Count | | | LABORATORY | | + + + + + + | MPV | 10.4Comment: NO NORMAL | fl | [facility] | | | | [facility] | | LABORATORY | | | | performed at [facility] | | | | | | [facility];[place], [place] | | | | | | [address] | | | | + + + + + + + + | Specimen | + + | Blood | + + + + + + + | Performing | Address | City/State/Zipcode | Phone Number | | Organization | | | | + + + + + | [facility] | [address] | [place] [address] | [phone] | + + + + + POC Glucose (08/30/2020 2:40 AM PDT) + + + + + + | Component | Value | Ref Range | Performed | Pathologist | | | | | At | Signature | + + + + + + | Glucose, | 75Comment: Testing | 65 - 99 mg/dL | [facility] | | | POC | performed at [facility];[address] | | LABORATORY | | | | [address];[place] | | | | | | [address] | | | | + + + + + + + + | Specimen | + + | | + + + + + + + | Performing | Address | City/State/Zipcode | Phone Number | | Organization | | | | + + + + + | [facility] | [address] | [place] [address] | [phone] | + + + + + ECG 12 lead (08/29/2020 9:42 PM PDT) + + + + + [...] + + Troponin I (08/29/2020 9:42 PM PDT) + + + + + + | Component | Value | Ref Range | Performed | Pathologist | | | | | At | Signature | + + + + + + | Troponin I | 1.886 ()Comment: | 0.00 - 0.04 | [facility] | | | | 0.04 ng/mL or [...] | | | | | | MICHELLE [place] [id number] AT | | | | | | 2223 BY JFTesting | | | | | | performed at [facility] | | | | | | [facility];[place], [place] | | | | | | [address] | | | | + + + + + + + + | Specimen | + + | Blood | + + + + + + + | Performing | Address | City/State/Zipcode | Phone Number | | Organization | | | | + + + + + | [facility] | [address] | [place] [address] | [phone] | + + + + + POC Glucose (08/29/2020 8:37 PM PDT) + + + + + + | Component | Value | Ref Range | Performed | Pathologist | | | | | At | Signature | + + + + + + | Glucose, | 225 (H)Comment: Testing | 65 - 99 mg/dL | [facility] | | | POC | performed at [facility];[address] | | LABORATORY | | | | [address];[place] | | | | | | [address] | | | | + + + + + + + + | Specimen | + + | | + + + + + + + | Performing | Address | City/State/Zipcode | Phone Number | | Organization | | | | + + + + + | [facility] | [address] | [place] [address] | [phone] | + + + + + POC Glucose (08/29/2020 5:03 PM PDT) + + + + + + | Component | Value | Ref Range | Performed | Pathologist | | | | | At | Signature | + + + + + + | Glucose, | 134 (H)Comment: Testing | 65 - 99 mg/dL | [facility] | | | POC | performed at [facility];[address] | | LABORATORY | | | | [address];[place] | | | | | | [address] | | | | + + + + + + + + | Specimen | + + | | + + + + + + + | Performing | Address | City/State/Zipcode | Phone Number | | Organization | | | | + + + + + | [facility] | [address] | [place] [address] | [phone] | + + + + + CT [...] Final Report Signed by: Idris Diaz Matthew Sign Date/Time: | | | 08/29/2020 1:54 [...] Procedure Note | + + | [place], [id number] - 08/29/2020 1:58 PM PDT | | [...] | + +---------+ + + POC Glucose (08/29/2020 11:22 AM PDT) + + + + + + | Component | Value | Ref Range | Performed | Pathologist | | | | | At | Signature | + + + + + + | Glucose, | 140 (H)Comment: Testing | 65 - 99 mg/dL | [facility] | | | POC | performed at [facility];[address] | | LABORATORY | | | | [address];[place], [place] | | | | | | [address] | | | | + + + + + + + + | Specimen | + + | | + + + + + + + | Performing | Address | City/State/Zipcode | Phone Number | | Organization | | | | + + + + + | [facility] | [address] | [place] [address] | [phone] | + + + + + Hepatitis B Surface Ab, Quant [...] [address] | | | | | | [address], [facility] | | | | | | [address] | | | | + + + + + + + + | Specimen | + + | | + + + + + + + | Performing | Address | City/State/Zipcode | Phone Number | | Organization | | | | + + + + + | [facility] | [address] | [place] [address] | [phone] | + + + + + D-Dimer (08/29/2020 10:32 AM PDT) + + + + + + | Component | Value | Ref Range | Performed | Pathologist | | | | | At | Signature | + + + + + + | D-DIMER | 2.50 (H)Comment: D Dimer | 0.19 - 0.50 | [facility] | | | | results less [...] | | | | | performed at [facility] | | | | | | [facility];[place], [place] | | | | | | [address] | | | | + + + + + + + + | Specimen | + + | Blood | + + + + + + + | Performing | Address | City/State/Zipcode | Phone Number | | Organization | | | | + + + + + | [facility] | [address] | [place] [address] | [phone] | + + + + + POC Glucose (08/29/2020 7:15 AM PDT) + + + + + + | Component | Value | Ref Range | Performed | Pathologist | | | | | At | Signature | + + + + + + | Glucose, | 128 (H)Comment: Testing | 65 - 99 mg/dL | [facility] | | | POC | performed at [facility];[address] | | LABORATORY | | | | [address];[place] | | | | | | [address] | | | | + + + + + + + + | Specimen | + + | | + + + + + + + | Performing | Address | City/State/Zipcode | Phone Number | | Organization | | | | + + + + + | [facility] | [address] | [place] [address] | [phone] | + + + + + POC Glucose (08/28/2020 8:54 PM PDT) + + + + + + | Component | Value | Ref Range | Performed | Pathologist | | | | | At | Signature | + + + + + + | Glucose, | 126 (H)Comment: Testing | 65 - 99 mg/dL | [facility] | | | POC | performed at [facility];[address] | | LABORATORY | | | | [address];[place], [place] | | | | | | [address] | | | | + + + + + + + + | Specimen | + + | | + + + + + + + | Performing | Address | City/State/Zipcode | Phone Number | | Organization | | | | + + + + + | [facility] | [address] | [place] [address] | [phone] | + + + + + POC Glucose (08/28/2020 4:52 PM PDT) + + + + + + | Component | Value | Ref Range | Performed | Pathologist | | | | | At | Signature | + + + + + + | Glucose, | 208 (H)Comment: Testing | 65 - 99 mg/dL | [facility] | | | POC | performed at [facility];[address] | | LABORATORY | | | | [address];[place], [place] | | | | | | [address] | | | | + + + + + + + + | Specimen | + + | | + + + + + + + | Performing | Address | City/State/Zipcode | Phone Number | | Organization | | | | + + + + + | [facility] | [address] | [place] [address] | [phone] | + + + + + POC Glucose (08/28/2020 11:18 AM PDT) + + + + + + | Component | Value | Ref Range | Performed | Pathologist | | | | | At | Signature | + + + + + + | Glucose, | 131 (H)Comment: Testing | 65 - 99 mg/dL | [facility] | | | POC | performed at [facility];[address] | | LABORATORY | | | | [address];[place] | | | | | | [address] | | | | + + + + + + + + | Specimen | + + | | + + + + + + + | Performing | Address | City/State/Zipcode | Phone Number | | Organization | | | | + + + + + | [facility] | [address] | [place] [address] | [phone] | + + + + + CBC no Differential (08/28/2020 9:37 AM PDT) + + + + + + | Component | Value | Ref Range | Performed | Pathologist | | | | | At | Signature | + + + + + + | WBC | 9.19 | 3.80 - 11.00 | [facility] | | | | | K/uL | LABORATORY | | + + + + + + | Red Blood | 3.25 (L) | 4.20 - 5.70 | [facility] | | | Cells | | M/uL | LABORATORY | | + + + + + + | Hemoglobin | 9.6 (L) | 13.2 - 17.0 | [facility] | | | | | g/dL | LABORATORY | | + + + + + + | Hematocrit | 29.4 (L) | 39.0 - 50.0 % | [facility] | | | | | | LABORATORY | | + + + + + + | MCV | 90.5 | 80.0 - 100.0 fl | [facility] | | | | | | LABORATORY | | + + + + + + | MCH | 29.5 | 27.0 - 34.0 pg | [facility] | | | | | | LABORATORY | | + + + + + + | MCHC | 32.7 | 32.0 - 35.5 | [facility] | | | | | g/dL | LABORATORY | | + + + + + + | RDW-SD | 48.5 | 37 - 53 fl | [facility] | | | | | | LABORATORY | | + + + + + + | Platelet | 261 | 150 - 400 K/uL | [facility] | | | Count | | | LABORATORY | | + + + + + + | MPV | 10.2Comment: NO NORMAL | fl | [facility] | | | | [facility] | | LABORATORY | | | | performed at [facility];[address] | | | | | | [address];[place] | | | | | | [address] | | | | + + + + + + + + | Specimen | + + | Blood | + + + + + + + | Performing | Address | City/State/Zipcode | Phone Number | | Organization | | | | + + + + + | [facility] | [address] | [place] [address] | [phone] | + + + + + Comprehensive Metabolic Panel (08/28/2020 9:37 AM PDT) + + + + + [...] | | | | | performed at [facility];[address] | | | | | | [address];[place] | | | | | | [address] | | | | + + + + + + + + | Specimen | + + | Blood | + + + + + + + | Performing | Address | City/State/Zipcode | Phone Number | | Organization | | | | + + + + + | [facility] | [address] | [place] [address] | [phone] | + + + + + POC Glucose (08/28/2020 8:48 AM PDT) + + + + + + | Component | Value | Ref Range | Performed | Pathologist | | | | | At | Signature | + + + + + + | Glucose, | 135 (H)Comment: Testing | 65 - 99 mg/dL | [facility] | | | POC | performed at [facility];[address] | | LABORATORY | | | | [address];[place], [place] | | | | | | [address] | | | | + + + + + + + + | Specimen | + + | | + + + + + + + | Performing | Address | City/State/Zipcode | Phone Number | | Organization | | | | + + + + + | [facility] | [address] | [place] [address] | [phone] | + + + + + POC Glucose (08/28/2020 8:23 AM PDT) + + + + + + | Component | Value | Ref Range | Performed | Pathologist | | | | | At | Signature | + + + + + + | Glucose, | 57 (L)Comment: Testing | 65 - 99 mg/dL | [facility] | | | POC | performed at [facility];[address] | | LABORATORY | | | | [address];[place] | | | | | | [address] | | | | + + + + + + + + | Specimen | + + | | + + + + + + + | Performing | Address | City/State/Zipcode | Phone Number | | Organization | | | | + + + + + | [facility] | [address] | [place] [address] | [phone] | + + + + + POC Glucose (08/28/2020 7:51 AM PDT) + + + + + + | Component | Value | Ref Range | Performed | Pathologist | | | | | At | Signature | + + + + + + | Glucose, | 55 (L)Comment: Testing | 65 - 99 mg/dL | [facility] | | | POC | performed at [facility];[address] | | LABORATORY | | | | [address];[place], [place] | | | | | | [address] | | | | + + + + + + + + | Specimen | + + | | + + + + + + + | Performing | Address | City/State/Zipcode | Phone Number | | Organization | | | | + + + + + | [facility] | [address] | [place] [address] | [phone] | + + + + + POC Glucose (08/28/2020 7:28 AM PDT) + + + + + + | Component | Value | Ref Range | Performed | Pathologist | | | | | At | Signature | + + + + + + | Glucose, | 39 (LL)Comment: Testing | 65 - 99 mg/dL | [facility] | | | POC | performed at [facility];[address] | | LABORATORY | | | | [address];[place], [place] | | | | | | [address] | | | | + + + + + + + + | Specimen | + + | | + + + + + + + | Performing | Address | City/State/Zipcode | Phone Number | | Organization | | | | + + + + + | [facility] | [address] | [place] [address] | [phone] | + + + + + POC Glucose (08/27/2020 9:16 PM PDT) + + + + + + | Component | Value | Ref Range | Performed | Pathologist | | | | | At | Signature | + + + + + + | Glucose, | 146 (H)Comment: Testing | 65 - 99 mg/dL | [facility] | | | POC | performed at [facility];[address] | | LABORATORY | | | | [address];[place] | | | | | | [address] | | | | + + + + + + + + | Specimen | + + | | + + + + + + + | Performing | Address | City/State/Zipcode | Phone Number | | Organization | | | | + + + + + | [facility] | [address] | [place] [address] | [phone] | + + + + + POC Glucose (08/27/2020 5:20 PM PDT) + + + + + + | Component | Value | Ref Range | Performed | Pathologist | | | | | At | Signature | + + + + + + | Glucose, | 115 (H)Comment: Testing | 65 - 99 mg/dL | [facility] | | | POC | performed at [facility];[address] | | LABORATORY | | | | [address];[place] | | | | | | [address] | | | | + + + + + + + + | Specimen | + + | | + + + + + + + | Performing | Address | City/State/Zipcode | Phone Number | | Organization | | | | + + + + + | [facility] | [address] | [place] [address] | [phone] | + + + + + XR [...] Procedure Note | + + | Wiley, [id number] - 08/27/2020 2:05 PM PDT | | [...] | + +---------+ + + POC Glucose (08/27/2020 11:16 AM PDT) + + + + + + | Component | Value | Ref Range | Performed | Pathologist | | | | | At | Signature | + + + + + + | Glucose, | 117 (H)Comment: Testing | 65 - 99 mg/dL | [facility] | | | POC | performed at [facility];[address] | | LABORATORY | | | | [address];[place] | | | | | | [address] | | | | + + + + + + + + | Specimen | + + | | + + + + + + + | Performing | Address | City/State/Zipcode | Phone Number | | Organization | | | | + + + + + | [facility] | [address] | [place] [address] | [phone] | + + + + + POC Glucose (08/27/2020 8:04 AM PDT) + + + + + + | Component | Value | Ref Range | Performed | Pathologist | | | | | At | Signature | + + + + + + | Glucose, | 78Comment: Testing | 65 - 99 mg/dL | [facility] | | | POC | performed at [facility];[address] | | LABORATORY | | | | [address];[place], [place] | | | | | | [address] | | | | + + + + + + + + | Specimen | + + | | + + + + + + + | Performing | Address | City/State/Zipcode | Phone Number | | Organization | | | | + + + + + | [facility] | [address] | [place] [address] | [phone] | + + + + + POC Glucose (08/26/2020 8:37 PM PDT) + + + + + + | Component | Value | Ref Range | Performed | Pathologist | | | | | At | Signature | + + + + + + | Glucose, | 149 (H)Comment: Testing | 65 - 99 mg/dL | [facility] | | | POC | performed at [facility];[address] | | LABORATORY | | | | [address];[place], [place] | | | | | | [address] | | | | + + + + + + + + | Specimen | + + | | + + + + + + + | Performing | Address | City/State/Zipcode | Phone Number | | Organization | | | | + + + + + | [facility] | [address] | [place] [address] | [phone] | + + + + + POC Glucose (08/26/2020 8:30 PM PDT) + + + + + + | Component | Value | Ref Range | Performed | Pathologist | | | | | At | Signature | + + + + + + | Glucose, | >400 (H)Comment: Testing | 65 - 99 mg/dL | [facility] | | | POC | performed at [facility];[address] | | LABORATORY | | | | [address];[place], [place] | | | | | | [address] | | | | + + + + + + + + | Specimen | + + | | + + + + + + + | Performing | Address | City/State/Zipcode | Phone Number | | Organization | | | | + + + + + | [facility] | [address] | [place] [address] | [phone] | + + + + + POC Glucose (08/26/2020 4:42 PM PDT) + + + + + + | Component | Value | Ref Range | Performed | Pathologist | | | | | At | Signature | + + + + + + | Glucose, | 108 (H)Comment: Testing | 65 - 99 mg/dL | [facility] | | | POC | performed at [facility];[address] | | LABORATORY | | | | [address];[place] | | | | | | [address] | | | | + + + + + + + + | Specimen | + + | | + + + + + + + | Performing | Address | City/State/Zipcode | Phone Number | | Organization | | | | + + + + + | [facility] | [address] | [place] [address] | [phone] | + + + + + POC Glucose (08/26/2020 12:19 PM PDT) + + + + + + | Component | Value | Ref Range | Performed | Pathologist | | | | | At | Signature | + + + + + + | Glucose, | 130 (H)Comment: Testing | 65 - 99 mg/dL | [facility] | | | POC | performed at [facility];[address] | | LABORATORY | | | | [address];[place] | | | | | | [address] | | | | + + + + + + + + | Specimen | + + | | + + + + + + + | Performing | Address | City/State/Zipcode | Phone Number | | Organization | | | | + + + + + | [facility] | [address] | [place] [address] | [phone] | + + + + + Red Blood Cells (PRBC) - Crossmatch (08/26/2020 11:17 AM PDT) + + + + + [...] BANK | Testing performed at | | [facility] | | | COMMENT | [facility];[address] [facility] | | LABORATORY | | | | Blvd;[place] [address] | | | | + + + + + + + + | Specimen | + + | | + + + + + + + | Performing | Address | City/State/Zipcode | Phone Number | | Organization | | | | + + + + + | [facility] | [address] | [place] [address] | [phone] | + + + + + POC Glucose (08/26/2020 6:43 AM PDT) + + + + + + | Component | Value | Ref Range | Performed | Pathologist | | | | | At | Signature | + + + + + + | Glucose, | 111 (H)Comment: Testing | 65 - 99 mg/dL | [facility] | | | POC | performed at [facility];[address] | | LABORATORY | | | | [address];[place] | | | | | | [address] | | | | + + + + + + + + | Specimen | + + | | + + + + + + + | Performing | Address | City/State/Zipcode | Phone Number | | Organization | | | | + + + + + | [facility] | [address] | [place] [address] | [phone] | + + + + + Protime INR (08/26/2020 5:20 AM PDT) + + + + + + | Component | Value | Ref Range | Performed | Pathologist | | | | | At | Signature | + + + + + + | INR | 1.1Comment: REFERENCE | | KR | | | | RANGE:0.9 - 1.2 [...] | | | | | performed at [facility] | | | | | | [address] [facility];[place], [place] | | | | | | [address] | | | | + + + + + + + + | Specimen | + + | Blood | + + + + + + + | Performing | Address | City/State/Zipcode | Phone Number | | Organization | | | | + + + + + | [facility] | [address] | [place] [address] | [phone] | + + + + + Magnesium (08/26/2020 5:20 AM PDT) + + + + + + | Component | Value | Ref Range | Performed | Pathologist | | | | | At | Signature | + + + + + + | Magnesium | 2.1Comment: Testing | 1.7 - 2.4 mg/dL | [facility] | | | | performed at [facility];[address] | | LABORATORY | | | | [address];[place] | | | | | | [address] | | | | + + + + + + + + | Specimen | + + | Blood | + + + + + + + | Performing | Address | City/State/Zipcode | Phone Number | | Organization | | | | + + + + + | [facility] | [address] | [place] [address] | [phone] | + + + + + CBC with Differential (08/26/2020 5:20 AM PDT) + + + + + [...] | | | Absolute | performed at [facility];[address] | K/uL | LABORATORY | | | | [facility];[place], [place] | | | | | | [address] | | | | + + + + + + + + | Specimen | + + | Blood | + + + + + + + | Performing | Address | City/State/Zipcode | Phone Number | | Organization | | | | + + + + + | [facility] | [address] | [place] [address] | [phone] | + + + + + Basic Metabolic Panel (08/26/2020 5:20 AM PDT) + + + + + [...] + + | K | 4.1 | 3.5 - 4.9 | [facility] | | | | | mmol/L | LABORATORY | | + + + + + + | Cl | 99 | 99 - 109 mmol/L | [facility] | | | | | | LABORATORY | | + + + + + + | CO2 | 29 | 23 - 32 mmol/L | [facility] | | | | | | LABORATORY | | + + + + + + | Anion Gap | 13 | 5 - 20 mmol/L | [facility] | | | | | | LABORATORY | | + + + + + + | Glucose | 105 (H) | 65 - 99 mg/dL | [facility] | | | | | | LABORATORY | | + + + + + + | BUN | 60 (H) | 8 - 25 mg/dL | [facility] | | | | | | LABORATORY | | + + + + + + | Creatinine | 4.10 (H) | 0.70 - 1.30 | [facility] | | | | | mg/dL | LABORATORY | | + + + + + + | BUN/Creatin | 15 | | [facility] | | | ine Ratio | | | LABORATORY | | + + + + + + | Calcium | 8.1 (L) | 8.5 - 10.5 | [facility] | | | | | mg/dL | LABORATORY | | + + + + + + | Estimated | 14 (L)Comment: GFR <60: | >60 | [facility] | | | GFR | CHRONIC [...] | | | | | performed at [facility], [address] | | | | | | [facility], | | | | | | [place] [address] | | | | + + + + + + + + | Specimen | + + | Blood | + + + + + + + | Performing | Address | City/State/Zipcode | Phone Number | | Organization | | | | + + + + + | [facility] | [address] | [place] [address] | [phone] | + + + + + POC Glucose (08/25/2020 8:34 PM PDT) + + + + + + | Component | Value | Ref Range | Performed | Pathologist | | | | | At | Signature | + + + + + + | Glucose, | 99Comment: Testing | 65 - 99 mg/dL | [facility] | | | POC | performed at [facility];[address] | | LABORATORY | | | | [address];[place] | | | | | | [address] | | | | + + + + + + + + | Specimen | + + | | + + + + + + + | Performing | Address | City/State/Zipcode | Phone Number | | Organization | | | | + + + + + | [facility] | [address] | [place] [address] | [phone] | + + + + + CK-MB (08/25/2020 7:44 PM PDT) + + + + + [...] at | | | | | | [facility];[address] [place] [address] | | | | | | Bl;[place] [address] | | | | + + + + + + + + | Specimen | + + | Blood | + + + + + + + | Performing | Address | City/State/Zipcode | Phone Number | | Organization | | | | + + + + + | [facility] | [address] | [place] [address] | [phone] | + + + + + POC Glucose (08/25/2020 4:33 PM PDT) + + + + + + | Component | Value | Ref Range | Performed | Pathologist | | | | | At | Signature | + + + + + + | Glucose, | 287 (H)Comment: Testing | 65 - 99 mg/dL | [facility] | | | POC | performed at [facility];[address] | | LABORATORY | | | | [address];[place] | | | | | | [address] | | | | + + + + + + + + | Specimen | + + | | + + + + + + + | Performing | Address | City/State/Zipcode | Phone Number | | Organization | | | | + + + + + | [facility] | [address] | [place] [address] | [phone] | + + + + + CK-MB (08/25/2020 3:57 PM PDT) + + + + + + | Component | Value | Ref Range | Performed | Pathologist | | | | | At | Signature | + + + + + + | CK-MB | 7.5 (H) | 0.5 - 3.6 ng/mL | [facility] | | | | | | LABORATORY | | + + + + + + | CK Index | UNABLE TO | | [facility] | | | | CALCULATEComment: | | LABORATORY | | | | Testing performed at | | | | | | [facility];[address];[place] [address] | | | | + + + + + + + + | Specimen | + + | Blood | + + + + + + + | Performing | Address | City/State/Zipcode | Phone Number | | Organization | | | | + + + + + | [facility] | [address] | [place] [address] | [phone] | + + + + + Troponin I (08/25/2020 3:57 PM PDT) + + + + + + | Component | Value | Ref Range | Performed | Pathologist | | | | | At | Signature | + + + + + + | Troponin I | 5.838 ()Comment: | 0.00 - 0.04 | [facility] | | | | 0.04 ng/mL or [...] recommended. | | | | | | CALLED NURSING | | | | | | UNITRESULT READ BACK | | | | | | BY:9RP/PARAM E @16:58, | | | | | | MYVTesting performed at | | | | | | [facility];[address];[place] [address] | | | | + + + + + + + + | Specimen | + + | Blood | + + + + + + + | Performing | Address | City/State/Zipcode | Phone Number | | Organization | | | | + + + + + | [facility] | [address] | [place] [address] | [phone] | + + + + + Red Blood Cells (PRBC) - Crossmatch (08/25/2020 2:49 PM PDT) + + + [...] BANK | Testing performed at | | [facility] | | | COMMENT | [facility];[address] | LABORATORY | | | | [address];[place] [address] | | | | + + + + + + + + | Specimen | + + | | + + + + + + + | Performing | Address | City/State/Zipcode | Phone Number | | Organization | | | | + + + + + | [facility] | [address] | [place] [address] | [phone] | + + + + + Type [...] + + + | BB BAND | [id number] | | [facility] | | | | | | LABORATORY | | + + + + + + | UNIT # | [id number] | | [facility] | | | | [...] + + + | UNIT # | [id number] | | [facility] | | | | [...] + | CROSSMATCH | COMPATIBLETesting | | [facility] | | | RESULT | performed at [facility] | | LABORATORY | | | | [address];[place], [place] | | | | | | [address] | | | | + + + + + + + + | Specimen | + + | Blood | + + + + + + + | Performing | Address | City/State/Zipcode | Phone Number | | Organization | | | | + + + + + | [facility] | [address] | [place] [address] | [phone] | + + + + + Hepatitis B Core Ab, Total (08/25/2020 2:48 PM PDT) + + + + + + | Component | Value | Ref Range | Performed | Pathologist | | | | | At | Signature | + + + + + + | Hepatitis B | NegativeComment: Testing | Negative | [facility] | | | Core Ab | performed at [facility], | | LABORATORY | | | Total | [address], [address], | | | | | | [facility] [address] | | | | + + + + + + + + | Specimen | + + | | + + + + + + + | Performing | Address | City/State/Zipcode | Phone Number | | Organization | | | | + + + + + | [facility] | [address] | [place] [address] | [phone] | + + + + + Hepatitis B Surface Ag (08/25/2020 2:48 PM PDT) + + + + + + | Component | Value | Ref Range | Performed | Pathologist | | | | | At | Signature | + + + + + + | Hepatitis B | NegativeComment: Testing | Negative | [facility] | | | Surface Ag | performed at [facility], | | LABORATORY | | | | [address], | | | | | | [facility] [address] | | | | + + + + + + + + | Specimen | + + | Blood | + + + + + + + | Performing | Address | City/State/Zipcode | Phone Number | | Organization | | | | + + + + + | [facility] | [address] | [place] [address] | [phone] | + + + + + Hepatitis [...] Amplificationtest | | | | | | ([id number]).Testing | | | | | | performed at [facility], | | | | | | [address], [address], | | | | | | [facility] [address] | | | | + + + + + + + + | Specimen | + + | Blood | + + + + + + + | Performing | Address | City/State/Zipcode | Phone Number | | Organization | | | | + + + + + | [facility] | [address] | [place] [address] | [phone] | + + + + + POC Glucose (08/25/2020 12:03 PM PDT) + + + + + + | Component | Value | Ref Range | Performed | Pathologist | | | | | At | Signature | + + + + + + | Glucose, | 156 (H)Comment: Testing | 65 - 99 mg/dL | [facility] | | | POC | performed at [facility];[address] | | LABORATORY | | | | [address];[place], [place] | | | | | | [address] | | | | + + + + + + + + | Specimen | + + | | + + + + + + + | Performing | Address | City/State/Zipcode | Phone Number | | Organization | | | | + + + + + | [facility] | [address] | [place] [address] | [phone] | + + + + + CK-MB (08/25/2020 11:57 AM PDT) + + + + + + | Component | Value | Ref Range | Performed | Pathologist | | | | | At | Signature | + + + + + + | CK-MB | 8.0 (H) | 0.5 - 3.6 ng/mL | [facility] | | | | | | LABORATORY | | + + + + + + | CK Index | UNABLE TO | | [facility] | | | | CALCULATEComment: | | LABORATORY | | | | Testing performed at | | | | | | [facility] [address] | | | | | | [address];[place] [address] | | | | + + + + + + + + | Specimen | + + | Blood | + + + + + + + | Performing | Address | City/State/Zipcode | Phone Number | | Organization | | | | + + + + + | [facility] | [address] | [place] [address] | [phone] | + + + + + Troponin I (08/25/2020 11:57 AM PDT) + + + + + + | Component | Value | Ref Range | Performed | Pathologist | | | | | At | Signature | + + + + + + | Troponin I | 6.299 ()Comment: | 0.00 - 0.04 | [facility] | | | | 0.04 ng/mL or [...] | | | | RESULT READ BACK | | | | | | BY:RYLYE Baez RN 9RP [id number] | | | | | | [id number] KAWTesting | | | | | | performed at [facility];[address] | | | | | | [facility];[place], [place] | | | | | | [address] | | | | + + + + + + + + | Specimen | + + | Blood | + + + + + + + | Performing | Address | City/State/Zipcode | Phone Number | | Organization | | | | + + + + + | [facility] | [address] | [place] [address] | [phone] | + + + + + ECHO [...] | | | | | performed at [facility];[address] | | | | | | [address];[place] | | | | | | [address] | | | | + + + + + + + + | Specimen | + + | Tissue - Entire | | nasopharynx (body | | structure) | + + + + + + + | Performing | Address | City/State/Zipcode | Phone Number | | Organization | | | | + + + + + | [facility] | [address] | [place] [address] | [phone] | + + + + + POC Glucose (08/25/2020 8:11 AM PDT) + + + + + + | Component | Value | Ref Range | Performed | Pathologist | | | | | At | Signature | + + + + + + | Glucose, | 204 (H)Comment: Testing | 65 - 99 mg/dL | [facility] | | | POC | performed at [facility];[address] | | LABORATORY | | | | [address];[place], [place] | | | | | | [address] | | | | + + + + + + + + | Specimen | + + | | + + + + + + + | Performing | Address | City/State/Zipcode | Phone Number | | Organization | | | | + + + + + | [facility] | [address] | [place] [address] | [phone] | + + + + + Troponin I (08/25/2020 8:03 AM PDT) + + + + + + | Component | Value | Ref Range | Performed | Pathologist | | | | | At | Signature | + + + + + + | Troponin I | 6.515 ()Comment: | 0.00 - 0.04 | [facility] | | | | 0.04 ng/mL or [...] | | | | RESULT READ BACK | | | | | | BY:RYLEY De La Cruz RN 9RP [id number] | | | | | | [id number] KAWTesting | | | | | | performed at [facility] | | | | | | [facility];[place], [place] | | | | | | [address] | | | | + + + + + + + + | Specimen | + + | Blood | + + + + + + + | Performing | Address | City/State/Zipcode | Phone Number | | Organization | | | | + + + + + | [facility] | [address] | [place] [address] | [phone] | + + + + + CK-MB (08/25/2020 8:03 AM PDT) + + + + + + | Component | Value | Ref Range | Performed | Pathologist | | | | | At | Signature | + + + + + + | CK-MB | 9.0 (H) | 0.5 - 3.6 ng/mL | [facility] | | | | | | LABORATORY | | + + + + + + | CK Index | UNABLE TO | | [facility] | | | | CALCULATEComment: | | LABORATORY | | | | Testing performed at | | | | | | [facility];[address];[place] [address] | | | | + + + + + + + + | Specimen | + + | Blood | + + + + + + + | Performing | Address | City/State/Zipcode | Phone Number | | Organization | | | | + + + + + | [facility] | [address] | [place] [address] | [phone] | + + + + + Lipid [...] | | | Calculated | performed at [facility], [address] | | LABORATORY | | | | [address], | | | | | | [place] [address] | | | | + + + + + + + + | Specimen | + + | Blood | + + + + + + + | Performing | Address | City/State/Zipcode | Phone Number | | Organization | | | | + + + + + | [facility] | [address] | [place] [address] | [phone] | + + + + + Hemoglobin A1C (08/25/2020 7:48 AM PDT) + + + + + + | Component | Value | Ref Range | Performed | Pathologist | | | | | At | Signature | + + + + + + | Hemoglobin | 7.1 (H)Comment: | 4.8 - 5.6 % | [facility] | | | A1c | Prediabetes: [...] Ave, | | | | | | [facility] [address], [facility] | | | | | | [address] | | | | + + + + + + + + | Specimen | + + | Blood | + + + + + + + | Performing | Address | City/State/Zipcode | Phone Number | | Organization | | | | + + + + + | [facility] | [address] | [place] [address] | [phone] | + + + + + [place] [...] Procedure Note | + + | Wiley, [id number] - 08/25/2020 7:54 AM PDT | | [...] | | | + +---------+ + + ECG 12 lead (08/25/2020 5:57 AM PDT) + + + + + + | Component | Value | Ref Range | Performed | Pathologist | | | | | At | Signature | + + + + + + | VENTRICULAR | 75 | BPM | [facility] | | | RATE EKG | | | | | + + + + + + | ATRIAL RATE | 75 | BPM | [facility] | | + + + + + + | P-R | 196 | ms | [facility] | | | INTERVAL | | | | | + + + + + + | QRS | 110 | ms | [facility] | | | DURATION | | | | | + + + + + + | Q-T | 456 | ms | [facility] | | | INTERVAL | | | | | + + + + + + | Q-T | 509 | ms | [facility] | | | INTERVAL | | | | | | (CORRECTED) | | | | | + + + + + + | P WAVE AXIS | 42 | degrees | [facility] | | + + + + + + | QRS AXIS | 29 | degrees | [facility] | | + + + + + + | T AXIS | 146 | degrees | [facility] | | + + + + + + | INTERPRETAT | Normal sinus rhythmLow | | [facility] | | | ION TEXT | voltage QRSIncomplete | | | | | | left bundle branch | | | | | | blockST & T wave | | | | | | abnormality, consider | | | | | | anterolateral | | | | | | ischemiaProlonged | | | | | | QTAbnormal ECGWhen | | | | | | compared with ECG of | | | | | | 24-AUG-2020 23:55,No | | | | | | significant change was | | | | | | foundThis ECG contains | | | | | | Unconfirmed | | | | | | Interpretation | | | | | | Statements. See ED | | | | | | Record for Physician | | | | | | Interpretation. | | | | | | Confirmed by MUSE READ | | | | | | ONLY, -COMPUTER ([id number]), | | | | | | society editor Van Joe | | | | | | ([id number]) on 08/27/2020 | | | | | | 10:47:09 AM | | | | + + [...] | | | + +---------+ + + ECG 12 lead (08/24/2020 11:55 PM PDT) + + + + + + | Component | Value | Ref Range | Performed | Pathologist | | | | | At | Signature | + + + + + + | VENTRICULAR | 76 | BPM | [facility] | | | RATE EKG | | | | | + + + + + + | ATRIAL RATE | 76 | BPM | [facility] | | + + + + + + | P-R | 184 | ms | [facility] | | | INTERVAL | | | | | + + + + + + | QRS | 110 | ms | [facility] | | | DURATION | | | | | + + + + + + | Q-T | 432 | ms | [facility] | | | INTERVAL | | | | | + + + + + + | Q-T | 486 | ms | [facility] | | | INTERVAL | | | | | | (CORRECTED) | | | | | + + + + + + | P WAVE AXIS | 41 | degrees | [facility] | | + + + + + + | QRS AXIS | 18 | degrees | [facility] | | + + + + + + | T AXIS | 141 | degrees | [facility] | | + + + + + + | INTERPRETAT | Normal sinus rhythmLow | | [facility] | | | ION TEXT | voltage QRSIncomplete | | | | | | left bundle branch | | | | | | blockST & T wave | | | | | | abnormality, consider | | | | | | anterolateral | | | | | | ischemiaProlonged | | | | | | QTAbnormal ECGWhen | | | | | | compared with ECG of | | | | | | 07-SEP-2019 | | | | | | 13:48,Incomplete left | | | | | | bundle branch block is | | | | | | now PresentThis ECG | | | | | | contains Unconfirmed | | | | | | Interpretation | | | | | | Statements. See ED | | | | | | Record for Physician | | | | | | Interpretation. | | | | | | Confirmed by MUSE READ | | | | | | ONLY, -COMPUTER ([id number]), | | | | | | society editor Van Joe | | | | | | ([id number]) on 08/27/2020 | | | | | | 10:47:08 AM | | | | + + [...] Procedure Note | + + | Wiley, [id number] - 08/24/2020 11:32 PM PDT | | [...] | + +---------+ + + Protime INR (08/24/2020 11:02 PM PDT) + + + + + + | Component | Value | Ref Range | Performed | Pathologist | | | | | At | Signature | + + + + + + | INR | 1.2Comment: REFERENCE | | [facility] | | | | RANGE:0.9 - 1.2 [...] | | | | | performed at [facility];[address] | | | | | | [address];[place] | | | | | | [address] | | | | + + + + + + + + | Specimen | + + | Blood | + + + + + + + | Performing | Address | City/State/Zipcode | Phone Number | | Organization | | | | + + + + + | [facility] | [address] | [place] [address] | [phone] | + + + + + B Type Natriuretic Peptide (08/24/2020 11:00 PM PDT) + + + + + + | Component | Value | Ref Range | Performed | Pathologist | | | | | At | Signature | + + + + + + | BNP | 2,431.10 (H)Comment: | 0 - 100 pg/mL | [facility] | | | | Testing performed at | | LABORATORY | | | | [facility];[address];[place] [address] | | | | + + + + + + + + | Specimen | + + | Blood | + + + + + + + | Performing | Address | City/State/Zipcode | Phone Number | | Organization | | | | + + + + + | [facility] | [address] | [place] [address] | [phone] | + + + + + Phosphorus (08/24/2020 11:00 PM PDT) + + + + + + | Component | Value | Ref Range | Performed | Pathologist | | | | | At | Signature | + + + + + + | Phosphorus | 7.4 (H)Comment: Testing | 2.3 - 4.8 mg/dL | [facility] | | | | performed at [facility];[address] | | LABORATORY | | | | [address];[place], [place] | | | | | | [address] | | | | + + + + + + + + | Specimen | + + | Blood | + + + + + + + | Performing | Address | City/State/Zipcode | Phone Number | | Organization | | | | + + + + + | [facility] | [address] | [place] [address] | [phone] | + + + + + Magnesium (08/24/2020 11:00 PM PDT) + + + + + + | Component | Value | Ref Range | Performed | Pathologist | | | | | At | Signature | + + + + + + | Magnesium | 2.1Comment: Testing | 1.7 - 2.4 mg/dL | [facility] | | | | performed at [facility];[address] LABORATORY | | | [address];[place] | | | | | | [address] | | | | + + + + + + + + | Specimen | + + | Blood | + + + + + + + | Performing | Address | City/State/Zipcode | Phone Number | | Organization | | | | + + + + + | [facility] | [address] | [place] [address] | [phone] | + + + + + Troponin I (08/24/2020 11:00 PM PDT) + + + + + + | Component | Value | Ref Range | Performed | Pathologist | | | | | At | Signature | + + + + + + | Troponin I | 8.035 ()Comment: | 0.00 - 0.04 | [facility] | | | | 0.04 ng/mL or [...] recommended. | | | | | | CALLED NURSING | | | | | | TERI F IN ED @ | | | | | | 2345 BY BSREAD BACK | | | | | | RESULTS VERIFIEDTesting | | | | | | performed at [facility];[address] | | | | | | [address];[place] | | | | | | [address] | | | | + + + + + + + + | Specimen | + + | Blood | + + + + + + + | Performing | Address | City/State/Zipcode | Phone Number | | Organization | | | | + + + + + | [facility] | [address] | [place] [address] | [phone] | + + + + + Comprehensive Metabolic Panel (08/24/2020 11:00 PM PDT) + + + + + + | Component | Value | Ref Range | Performed | Pathologist | | | | | At | Signature | + + + + + + | Na | 132 (L) | 135 - 145 | [facility] | | | | | mmol/L | LABORATORY | | + + + + + + | K | 4.5 | 3.5 - 4.9 | [facility] | | | | | mmol/L | LABORATORY | | + + + + + + | Cl | 97 (L) | 99 - 109 mmol/L | [facility] | | | | | | LABORATORY | | + + + + + + | CO2 | 21 (L) | 23 - 32 mmol/L | [facility] | | | | | | LABORATORY | | + + + + + + | Anion Gap | 19 | 5 - 20 mmol/L | [facility] | | | | | | LABORATORY | | + + + + + + | Glucose | 162 (H) | 65 - 99 mg/dL | [facility] | | | | | | LABORATORY | | + + + + + + | BUN | 84 (H) | 8 - 25 mg/dL | [facility] | | | | | | LABORATORY | | + + + + + + | Creatinine | 5.55 (H) | 0.70 - 1.30 | [facility] | | | | | mg/dL | LABORATORY | | + + + + + + | BUN/Creatin | 15 | | [facility] | | | ine Ratio | | | LABORATORY | | + + + + + + | Calcium | 7.8 (L) | 8.5 - 10.5 | [facility] | | | | | mg/dL | LABORATORY | | + + + + + + | Protein, | 6.2 (L) | 6.3 - 8.2 g/dL | [facility] | | | Total | | | LABORATORY | | + + + + + + | Albumin | 3.8 | 3.3 - 4.8 g/dL | [facility] | | | | | | LABORATORY | | + + + + + + | Globulin | 2.4 | 1.3 - 4.9 g/dL | [facility] | | | | | | LABORATORY | | + + + + + + | A/G Ratio | 1.6 | 1.0 - 2.4 | [facility] | | | | | | LABORATORY | | + + + + + + | BILIRUBIN, | 0.4 | 0.1 - 1.5 mg/dL | [facility] | | | TOTAL | | | LABORATORY | | + + + + + + | ALK PHOS | 86 | 35 - 115 U/L | [facility] | | | | | | LABORATORY | | + + + + + + | AST | 22 | 10 - 45 U/L | [facility] | | | | | | LABORATORY | | + + + + + + | ALT | 12 | 10 - 65 U/L | [facility] | | | | | [facility]AT[facility] | | + + + + + + | Estimated | 10 (L)Comment: GFR <60: | >60 | [facility] [...] | | | | | performed at [facility] | | | | | | [facility];[place], [place] | | | | | | [id number] | | | | + + + + + + + + | Specimen | + + | Blood | + + + + + + + | Performing | Address | City/State/Zipcode | Phone Number | | Organization | | | | + + + + + | [facility] | [address] | [place] [address] | [phone] | + + + + + CBC with Differential (08/24/2020 11:00 PM PDT) + + + + + + | Component | Value | Ref Range | Performed | Pathologist | | | | | At | Signature | + + + + + + | WBC | 10.66 | 3.80 - 11.00 | [facility] | | | | | K/uL | LABORATORY | | + + + + + + | Red Blood | 2.68 (L) | 4.20 - 5.70 | [facility] | | | Cells | | M/uL | LABORATORY | | + + + + + + | Hemoglobin | 7.9 (L) | 13.2 - 17.0 | [facility] | | | | | g/dL | LABORATORY | | + + + + + + | Hematocrit | 24.8 (L) | 39.0 - 50.0 % | [facility] | | | | | | LABORATORY | | + + + + + + | MCV | 92.5 | 80.0 - 100.0 fl | [facility] | | | | | | LABORATORY | | + + + + + + | MCH | 29.5 | 27.0 - 34.0 pg | [facility] | | | | | | LABORATORY | | + + + + + + | MCHC | 31.9 (L) | 32.0 - 35.5 | [facility] | | | | | g/dL | LABORATORY | | + + + + + + | RDW-SD | 49.4 | 37 - 53 fl | [facility] | | | | | | LABORATORY | | + + + + + + | Platelet | 327 | 150 - 400 K/uL | [facility] | | | Count | | | LABORATORY | | + + + + + + | MPV | 10.5Comment: NO NORMAL | fl | [facility] | [...] + + + + | % | 93.80 | % | [facility] | | | Neutrophils | | | LABORATORY | | + + + + + + | IMMATURE | 0.40 | % | [facility] | | | GRANULOCYTE | | | LABORATORY | | + + + + + + | % | 2.60 | % | [facility] | | | Lymphocytes | | | LABORATORY | | + + + + + + | Monocyte % | 2.20 | % | [facility] | | | | | | LABORATORY | | + + + + + + | Eosinophils | 0.80 | % | [facility] | | | % | | | LABORATORY | | + + + + + + | Basophils % | 0.20 | % | [facility] | | | | | | LABORATORY | | + + + + + + | Neutrophils | 10.01 (H) | 1.90 - 7.40 | [facility] | | | , Absolute | | K/uL | LABORATORY | | + + + + + + | IMMATURE | 0.04Comment: NOTE NEW | 0.00 - 0.07 | [facility] | | | GRANS AB | REFERENCE RANGE | K/uL | LABORATORY | | + + + + + + | Absolute | 0.28 (L) | 1.00 - 3.90 | [facility] | | | Lymphocytes | | K/uL | LABORATORY | | + + + + + + | Absolute | 0.23 | 0.00 - 0.80 | [facility] | | | Monocytes | | K/uL | LABORATORY | | + + + + + + | Eosinophils | 0.08 | 0.00 - 0.50 | [facility] | | | , Absolute | | K/uL | LABORATORY | | + + + + + + | Basophils, | 0.02Comment: Testing | 0.00 - 0.10 | [facility] | | | Absolute | performed at [facility];[address] | K/uL | LABORATORY | | | | [address];[place] | | | | | | [id number] | | | | + + + + + + + + | Specimen | + + | Blood | + + + + + + + | Performing | Address | City/State/Zipcode | Phone Number | | Organization | | | | + + + + + | [facility] | [address] | [place] [address] | [phone] | + + + + + documented in this encounter Visit Diagnoses + + | Diagnosis | + + | Acute respiratory failure with hypoxia (HCC) - Primary Acute respiratory failure | + + | ESRD needing dialysis (HCC) End stage renal disease | + + | Hypervolemia, unspecified hypervolemia type | + + | NSTEMI (non-ST elevated myocardial infarction) ([facility]) Acute myocardial infarction, | | subendocardial infarction, episode of care unspecified | + + | Anemia of chronic renal failure, unspecified CKD stage | + + | Congestive heart failure, unspecified HF chronicity, unspecified heart failure type | | ([facility]) | + + | CKD (chronic kidney disease) stage 5, GFR less than 15 ml/min ([facility]) Chronic kidney | | disease, Stage V | + + | Acute on chronic systolic congestive heart failure ([facility]) Acute on chronic systolic | | heart failure | + + | ESRD on hemodialysis ([facility]) End stage renal disease | + + | Anemia in ESRD (end-stage renal disease) ([facility]) Anemia in chronic kidney disease | + + | Electrolyte imbalance risk Other specified conditions influencing health status | + + | Hyponatremia Hyposmolality and/or hyponatremia | + + | Metabolic acidosis Acidosis | + + | Hyperphosphatemia Disorders of phosphorus metabolism | + + | Edema of lower extremity Edema | + + | Essential hypertension Unspecified essential hypertension | + + | Hemoptysis Hemoptysis, unspecified | + + | Hypoalbuminemia Other disorders of plasma protein metabolism | + + | Tonsillar mass Swelling, mass, or lump in head and neck | + + | Cervical adenopathy Enlargement of lymph nodes | + + | 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 | + + | Acute pulmonary edema (HCC) Acute edema of lung, unspecified | + + | PAOLO (obstructive sleep apnea) Obstructive sleep apnea (adult) (pediatric) | + + | COPD (chronic obstructive pulmonary disease) (HCC) Chronic airway obstruction, not | | elsewhere classified | + + | Diabetes mellitus (HCC) Type II or unspecified type diabetes mellitus without mention | | of complication, not stated as uncontrolled | + + | History of stroke Transient ischemic attack (TIA), and cerebral infarction without | | residual deficits | + + | Acute exacerbation of CHF (congestive heart failure) (HCC) Congestive heart failure, | | unspecified | + + documented in this encounter Admitting Diagnoses + + | Diagnosis | + + | NSTEMI (non-ST elevated myocardial infarction) (HCC) Acute myocardial infarction, | | subendocardial infarction, episode of care unspecified | + + documented in this encounter Administered Medications + +--------+ +--------+------+------+ | Medication Order | MAR | Action | Dose | Rate | Site | | | Action | Date | | | | + +--------+ +--------+------+------+ | acetaminophen (TYLENOL) tablet | Given | 08/26/20 | 650 mg | | | | 650 mg 650 mg, Oral, EVERY 4 | | 20 1:29 | | | | | HOURS PRN, Pain, or fever >= 38.6 | | AM PDT | | | | | C (101.5 F), Starting Fri | | | | | | | 08/25/20 at 0448 | | | | | | + +--------+ +--------+------+------+ + +---+ | | | + +---+ | albuterol 90 mcg/puff inhaler 2 | | | puff 2 puff, Inhalation, RT | | | EVERY 4 HOURS PRN, Shortness of | | | Breath, Starting 08/25/20 at | | | 0619, Shake well. Use with | | | spacer., | | + +---+ | | | + +---+ + +-------+ +-------+---+---+ | aspirin chewable tablet 81 mg | Given | 09/01/20 | 81 mg | | | | 81 mg, Oral, DAILY, First dose on | | 20 7:41 | | | | | 08/25/20 at 0900, Retime | | AM PDT | | | | | first dose to TOMORROW if patient | | | | | | | has already received a dose of | | | | | | | aspirin TODAY., | | | | | | + +-------+ +-------+---+---+ +-------+ +-------+---+---+ | Given | 08/31/20 | 81 mg | | | | | 20 10:00 | | | | | | AM PDT | | | | +-------+ +-------+---+---+ | Given | 08/30/20 | 81 mg | | | | | 20 3:33 | | | | | | PM PDT | | | | +-------+ +-------+---+---+ +---+---+ | | | +---+---+ + +-------+ +-------+---+---+ | atorvaSTATin (LIPITOR) tablet | Given | 08/31/20 | 80 mg | | | | 80 mg 80 mg, Oral, NIGHTLY, | | 20 9:21 | | | | | First dose on 08/25/20 at 2100 | | PM PDT | | | | + +-------+ +-------+---+---+ +-------+ +-------+---+---+ | Given | 08/30/20 | 80 mg | | | | | 20 8:51 | | | | | | PM PDT | | | | +-------+ +-------+---+---+ | Given | 08/29/20 | 80 mg | | | | | 20 9:18 | | | | | | PM PDT | | | | +-------+ +-------+---+---+ +---+---+ | | | +---+---+ + +-------+ +---------+---+---+ | budesonide-formoterol | Given | 09/01/20 | 2 puffs | | | | (SYMBICORT) 160-4.5 mcg/puff | | 20 7:40 | | | | | inhaler 2 puff 2 puff, | | AM PDT | | | | | Inhalation, RT BID, First dose on | | | | | | | Fri08/25/20 at 0900, Shake well. | | | | | | | Use with spacer. Rinse mouth | | | | | | | after use., | | | | | | + +-------+ +---------+---+---+ +-------+ +---------+---+---+ | Given | 08/31/20 | 2 puffs | | | | | 20 9:20 | | | | | | PM PDT | | | | +-------+ +---------+---+---+ | Given | 08/31/20 | 2 puffs | | | | | 20 10:00 | | | | | | AM PDT | | | | +-------+ +---------+---+---+ +---+---+ | | | +---+---+ + +-------+ +-------+---+---+ | clopidogrel (PLAVIX) tablet 75 | Given | 09/01/20 | 75 mg | | | | mg 75 mg, Oral, DAILY, First | | 20 7:42 | | | | | dose on Fri08/25/20 at 0900 | | AM PDT | | | | + +-------+ +-------+---+---+ +-------+ +-------+---+---+ | Given | 08/31/20 | 75 mg | | | | | 20 10:00 | | | | | | AM PDT | | | | +-------+ +-------+---+---+ | Given | 08/30/20 | 75 mg | | | | | 20 3:33 | | | | | | PM PDT | | | | +-------+ +-------+---+---+ + +---+ | | | + +---+ | dextrose 10% (D10W) infusion | | | at 50 mL/hr, Intravenous, | | | CONTINUOUS PRN, hypoglycemia, | | | Starting Fri08/25/20 at 0549, | | | Start infusion if unable [...] | + +---+ + +-------+ +--------+---+---+ | dextrose 50% injection 12.5-25 | Given | 08/28/20 | 12.5 g | | | | g 12.5-25 g, Intravenous, PRN, | | 20 8:35 | | | | | Low Blood Sugar, Starting Fri | | AM PDT | | | | | 08/25/20 at 0549, For blood | | | | | | | glucose 50-69 mg/dl - give 12.5 g | | | | | | | For blood glucose less than 50 | | | | | | | mg/dl - give 25 g, | | | | | | + +-------+ +--------+---+---+ +---+---+ | | | +---+---+ + +-------+ +---------+---+---+ | docusate-senna (SENOKOT-S) | Given | 08/27/20 | 2 | | | | 50-8.6 mg per tablet 2 tablet 2 | | 20 5:59 | tablets | | | | tablet, Oral, ONCE, Adamaris 08/27/20 | | PM PDT | | | | | at 1730, For 1 dose, With | | | | | | | lactulose, | | | | | | + +-------+ +---------+---+---+ +---+---+ | | | +---+---+ + +-------+ +---------+---+ + | epoetin amarjit-epbx (RETACRIT) | Given | 08/27/20 | 10,000 | | Abdomen- | | 10,000 units/mL injection 10,000 | | 20 3:39 | Units | | LLQ | | Units 10,000 Units, | | PM PDT | | | | | Subcutaneous, WEEKLY, First dose | | | | | | | on 08/27/20 at 1445, Keep in | | | | | | | refrigerator. Do not shake., | | | | | | | ESRD-related (i.e. dialysis) | | | | | | | indication? Yes | | | | | | + +-------+ +---------+---+ + +---+---+ | | | +---+---+ + +-------+ +-------+---+---+ | furosemide (LASIX) injection 80 | Given | 08/26/20 | 80 mg | | | | mg 80 mg, Intravenous, DAILY, | | 20 9:05 | | | | | First dose on Fri08/25/20 at 0900 | | AM PDT | | | | + +-------+ +-------+---+---+ +-------+ +-------+---+---+ | Given | 08/25/20 | 80 mg | | | | | 20 9:02 | | | | | | AM PDT | | | | +-------+ +-------+---+---+ +---+---+ | | | +---+---+ + +-------+ +--------+---+---+ | gabapentin (NEURONTIN) capsule | Given | 08/25/20 | 300 mg | | | | 300 mg 300 mg, Oral, NIGHTLY, | | 20 8:27 | | | | | First dose on Fri08/25/20 at 2100 | | PM PDT | | | | + +-------+ +--------+---+---+ + +---+ | | | + +---+ | heparin 1,000 units/mL | | | injection 1,500-6,000 Units | | | 1,500-6,000 Units, Intracatheter, | | | AFTER EACH DIALYSIS, Starting | | | 08/28/20 at 1353, Instill in | | | catheter, after each dialysis. | | | Dispense quantity sufficient to | | | fill both lumens of catheter., | | | Treatment date(s): 08/28/2020, | | | Dialysis | | + +---+ | | | + +---+ + +-------+ +--------+---+---+ | heparin 1,000 units/mL | Given | 08/25/20 | 5,000 | | | | injection 5,000 Units 5,000 | | 20 1:25 | Units | | | | Units, Intravenous, ONCE, Fri | | AM PDT | | | | | 08/25/20 at 0115, For 1 dose, | | | | | | | Heparin Protocol - Cardiac Dose | | | | | | | Initial Bolus Give heparin | | | | | | | Patient actual weight not | | | | | | | available. x1 (60 units/kg IV x | | | | | | | 1, round to nearest 100 units, | | | | | | | max 5000 units), | | | | | | + +-------+ +--------+---+---+ +---+---+ | | | +---+---+ + +---------+ + + +---+ | heparin in half-normal saline | New Bag | 08/25/20 | 11.76 | 10 mL/hr | | | 100 units/mL infusion 11.76 | | 20 1:27 | Units/kg | | | | Units/kg/hr | | AM PDT | /hr | | | | 85 kg (9.996 mL/hr, rounded to | | | | | | | 10 mL/hr), at 10 mL/hr, | | | | | | | Intravenous, TITRATED, Starting | | | | | | | 08/25/20 at 0115, CARDIAC DOSE | | | | | | | HEPARIN PROTOCOL Starting | | | | | | | heparin infusion dose 12 | | | | | | | units/kg/hr, MAX INITIAL RATE is | | | | | | | 1,000 units/hr. Draw aPTT from an | | | | | | | IV site other than heparin IV | | | | | | | site 6 hours after starting | | | | | | | infusion and every 6 hours until | | | | | | | 2 consecutive aPTTs in | | | | | | | therapeutic range, then every AM | | | | | | | (Adjust heparin infusion by the | | | | | | | nomogram below after each aPTT). | | | | | | | If infusion is stopped per | | | | | | | protocol, order aPTT 6 hours from | | | | | | | the time infusion is stopped. | | | | | | | aPTT < 20 seconds: Bolus Patient | | | | | | | actual weight not available. | | | | | | | Increase rate by 3 units/kg/hr | | | | | | | Repeat aPTT 6 hr after change | | | | | | | aPTT 20-29 seconds: Bolus Patient | | | | | | | actual weight not available. | | | | | | | Increase rate by 2 units/kg/hr | | | | | | | Repeat aPTT 6 hr after change | | | | | | | aPTT 30-45 seconds: Increase rate | | | | | | | by 2 units/kg/hr, Repeat aPTT 6 | | | | | | | hr after change aPTT 46-56 | | | | | | | seconds (GOAL RANGE): No Change | | | | | | | aPTT 57-65 seconds: Decrease rate | | | | | | | by 1 unit/kg/hr Repeat aPTT 6 hr | | | | | | | after change aPTT 66-75 | | | | | | | seconds: Stop infusion for 30 | | | | | | | minutes Then decrease rate by 2 | | | | | | | unit/kg/hr Repeat aPTT 6 hr after | | | | | | | change aPTT 76-82 seconds: Stop | | | | | | | infusion for 60 minutes Then | | | | | | | decrease rate by 3 unit/kg/hr | | | | | | | Repeat aPTT 6 hr after change | | | | | | | aPTT 83-90 seconds: Stop infusion | | | | | | | for 90 minutes Then decrease | | | | | | | rate by 4 units/kg/hr Repeat aPTT | | | | | | | 6 hr after change aPTT > 90 | | | | | | | seconds: Stop infusion and redraw | | | | | | | stat aPTT from alternate site. | | | | | | | If repeat > 90 contact pharmacist | | | | | | | for guidance., | | | | | | + +---------+ + + +---+ +---+---+ | | | +---+---+ + +-------+ + +---+ + | insulin glargine (LANTUS | Given | 08/31/20 | 13 Units | | Arm-Left | | SOLOSTAR) injection (pen) 13 | | 20 9:26 | | | Upper | | Units 13 Units, Subcutaneous, | | PM PDT | | | | | NIGHTLY, First dose (after last | | | | | | | modification) on 08/30/20 at | | | | | | | 2100, For subcutaneous use only. | | | | | | | Basal (long acting) insulin., If | | | | | | | NPO: Decrease dose, by: 50% | | | | | | + +-------+ + +---+ + +-------+ + +---+ + | Given | 08/30/20 | 10 Units | | Arm-Left | | | 20 10:01 | | | Upper | | | PM PDT | | | | +-------+ + +---+ + +---+---+ | | | +---+---+ + +-------+ + +---+ + | insulin glargine (LANTUS | Given | 08/29/20 | 13 Units | | Leg-Left | | SOLOSTAR) injection (pen) 25 | | 20 10:15 | | | Upper | | Units 25 Units, Subcutaneous, | | PM PDT | | | | | NIGHTLY, First dose on Fri | | | | | | | 08/25/20 at 2100, For subcutaneous | | | | | | | use only. Basal (long acting) | | | | | | | insulin., If NPO: Decrease dose, | | | | | | | by: 50% | | | | | | + +-------+ + +---+ + +-------+ + +---+ + | Given | 08/27/20 | 25 Units | | Abdomen- | | | 20 9:46 | | | LLQ | | | PM PDT | | | | +-------+ + +---+ + | Given | 08/26/20 | 25 Units | | Abdomen- | | | 20 9:30 | | | LLQ | | | PM PDT | | | | +-------+ + +---+ + +---+---+ | | | +---+---+ + +-------+ +---------+---+ + | insulin lispro (humaLOG, | Given | 08/31/20 | 1 Units | | Arm-Left | | ADMELOG) injection (vial) 0-6 | | 20 9:26 | | | Upper | | Units Correction Scale: Low Dose | | PM PDT | | | | | (SENSITIVE): Total Daily Dose | | | | | | | less than 40 units, Day/NPO Blood | | | | | | | Glucose (BG) below 150: (units): | | | | | | | 0, Day/NPO BG 150-200: (units): | | | | | | | 1, Day/NPO BG 201-250: (units): | | | | | | | 2, Day/NPO BG 251-300: (units): | | | | | | | 3, Day/NPO BG 301-350: (units): | | | | | | | 4, Day/NPO BG 351-400: (units): | | | | | | | 5, Day/NPO BG above 400: (units): | | | | | | | 6, Night BG below 150: (units): | | | | | | | 0, Night BG 150-200: (units): 0, | | | | | | | Night BG 201-250: (units): 1, | | | | | | | Night BG 251-300: (units): 2, | | | | | | | Night BG 301-350: (units): 3, | | | | | | | Night BG 351-400: (units): 4, | | | | | | | Night BG above 400: (units): 5, | | | | | | | BG above 400 additional | | | | | | | instructions: GIVE DOSE AND CALL | | | | | | | PROVIDER, Subcutaneous, 4 TIMES | | | | | | | DAILY WITH MEALS & NIGHTLY, First | | | | | | | dose on Fri08/25/20 at 0800, Use | | | | | | | DAY/NPO DOSE for doses | | | | | | | scheduled: AC, NPO, Daytime | | | | | | | [id number] Use NIGHT DOSE for | | | | | | | doses scheduled: HS, | | | | | | | Nighttime [id number] If the BG is | | | | | | | not checked before the patient | | | | | | | starts eating, do not give | | | | | | | correction insulin. Only for use | | | | | | | with U-100 insulin syringe., | | | | | | + +-------+ +---------+---+ + +-------+ +---------+---+ + | Given | 08/31/20 | 1 Units | | Arm-Left | | | 20 12:46 | | | Upper | | | PM PDT | | | | +-------+ +---------+---+ + | Given | 08/29/20 | 1 Units | | Leg-Left | | | 20 10:17 | | | Upper | | | PM PDT | | | | +-------+ +---------+---+ + +---+---+ | | | +---+---+ + +-------+ +--------+---+---+ | iohexol (OMNIPAQUE 350) 350 | Given | 08/29/20 | 65 mLs | | | | mg/mL injection 1 mL 1 mL, | | 20 1:37 | | | | | Intravenous, ONCE PRN, Other, | | PM PDT | | | | | Starting 08/29/20 at 1320, For | | | | | | | 1 dose, Cat Scanner | | | | | | + +-------+ +--------+---+---+ +---+---+ | | | +---+---+ + +-------+ +-------+---+---+ | isosorbide mononitrate (IMDUR) | Given | 09/01/20 | 30 mg | | | | ER tablet 30 mg 30 mg, Oral, | | 20 7:42 | | | | | DAILY, First dose on 08/28/20 | | AM PDT | | | | | at 0930, Tablet may be cut where | | | | | | | scored but do not crush., | | | | | | + +-------+ +-------+---+---+ +-------+ +-------+---+---+ | Given | 08/31/20 | 30 mg | | | | | 20 10:00 | | | | | | AM PDT | | | | +-------+ +-------+---+---+ | Given | 08/30/20 | 30 mg | | | | | 20 3:33 | | | | | | PM PDT | | | | +-------+ +-------+---+---+ +---+---+ | | | +---+---+ + +-------+ +--------+---+---+ | lactulose liquid 45 mL 45 mL, | Given | 08/27/20 | 45 mLs | | | | Oral, ONCE, 08/27/20 at 1730, | | 20 5:59 | | | | | For 1 dose, With the 2 aimeestephania, | | PM PDT | | | | + +-------+ +--------+---+---+ +---+---+ | | | +---+---+ + +-------+ +---------+---+ + | lidocaine (PF) 1% injection 0.5 | Given | 08/26/20 | 0.5 mLs | | Other | | mL 0.5 mL, Intradermal, | | 20 12:25 | | | (Comment | | DIALYSIS - PRN, Given ID before | | PM PDT | | | ) | | needles placement, Starting Sat | | | | | | | 08/26/20 at 1215 | | | | | | + +-------+ +---------+---+ + +---+---+ | | | +---+---+ + +-------+ +---------+---+ + | lidocaine (PF) 1% injection 1 | Given | 08/25/20 | 0.5 mLs | | Other | | mL 1 mL, Intradermal, ONCE, Fri | | 20 6:10 | | | (Comment | | 08/25/20 at 1730, For 1 dose, | | PM PDT | | | ) | | Administer 0.2 ml in each A/V | | | | | | | sites before needles placement., | | | | | | + +-------+ +---------+---+ + +---+---+ | | | +---+---+ + +-------+ +------+---+ + | lidocaine (PF) 1% injection 1 | Given | 08/28/20 | 1 mL | | Arm-Righ | | mL 1 mL, Subcutaneous, ONCE, Mon | | 20 9:14 | | | t Upper | | 08/28/20 at 0900, For 1 dose, | | AM PDT | | | | | Administer 1-3 minutes before | | | | | | | insertion of dialysis needle, | | | | | | | Dialysis | | | | | | + +-------+ +------+---+ + +---+---+ | | | +---+---+ + +-------+ +---+---+---+ | lidocaine (XYLOCAINE) 2% jelly | Given | 08/25/20 | | | | | (uro-jet) Urethral, ONCE, Fri | | 20 1:55 | | | | | 08/25/20 at 0145, For 1 dose | | AM PDT | | | | + +-------+ +---+---+---+ +---+---+ | | | +---+---+ + +-------+ +---------+---+ + | lidocaine 1% injection 0.5 mL | Given | 08/30/20 | 0.5 mLs | | Other | | 0.5 mL, Intradermal, DIALYSIS - | | 20 8:50 | | | (Comment | | PRN, Given ID before needles | | AM PDT | | | ) | | placement, Starting 08/28/20 | | | | | | | at 0809 | | | | | | + +-------+ +---------+---+ + +---+---+ | | | +---+---+ + +-------+ +--------+---+---+ | lisinopril (PRINIVIL, ZESTRIL) | Given | 08/31/20 | 2.5 mg | | | | tablet 2.5 mg 2.5 mg, Oral, | | 20 9:20 | | | | | NIGHTLY, First dose on Sat | | PM PDT | | | | | 08/26/20 at 2100 | | | | | | + +-------+ +--------+---+---+ +-------+ +--------+---+---+ | Given | 08/30/20 | 2.5 mg | | | | | 20 8:48 | | | | | | PM PDT | | | | +-------+ +--------+---+---+ | Given | 08/29/20 | 2.5 mg | | | | | 20 9:18 | | | | | | PM PDT | | | | +-------+ +--------+---+---+ +---+---+ | | | +---+---+ + +-------+ +--------+---+---+ | midodrine (PROAMATINE) tablet | Given | 08/26/20 | 2.5 mg | | | | 2.5 mg 2.5 mg, Oral, ONCE, Sat | | 20 9:06 | | | | | 08/26/20 at 0900, For 1 dose | | AM PDT | | | | + +-------+ +--------+---+---+ +---+---+ | | | +---+---+ + +-------+ +--------+---+---+ | nitroglycerin (NITROSTAT) SL | Given | 08/29/20 | 0.4 mg | | | | tablet 0.4 mg 0.4 mg, | | 20 9:25 | | | | | Sublingual, EVERY 5 MIN PRN, | | PM PDT | | | | | Chest pain, Starting Fri08/25/20 | | | | | | | at 0448, May give up to 3 doses. | | | | | | | Notify physician after 2nd dose | | | | | | | given. Hold for SBP<100, | | | | | | + +-------+ +--------+---+---+ +---+---+ | | | +---+---+ + +-------+ +------+---+---+ | ondansetron (ZOFRAN) injection | Given | 08/30/20 | 4 mg | | | | 4-8 mg 4-8 mg, Intravenous, | | 20 2:23 | | | | | EVERY 6 HOURS PRN, Nausea, | | PM PDT | | | | | Vomiting, Starting Fri08/25/20 at | | | | | | | 0448, First line agent, | | | | | | + +-------+ +------+---+---+ +-------+ +------+---+---+ | Given | 08/27/20 | 8 mg | | | | | 20 12:23 | | | | | | PM PDT | | | | +-------+ +------+---+---+ | Given | 08/27/20 | 4 mg | | | | | 20 6:13 | | | | | | AM PDT | | | | +-------+ +------+---+---+ +---+---+ | | | +---+---+ + +-------+ +-------+---+---+ | oxyCODONE (ROXICODONE) tablet | Given | 08/25/20 | 10 mg | | | | 10 mg 10 mg, Oral, ONCE, Fri | | 20 2:03 | | | | | 08/25/20 at 0200, For 1 dose | | AM PDT | | | | + +-------+ +-------+---+---+ +---+---+ | | | +---+---+ + +-------+ +-------+---+---+ | oxyCODONE (ROXICODONE) tablet | Given | 09/01/20 | 15 mg | | | | 15 mg 15 mg, Oral, EVERY 4 HOURS | | 20 7:42 | | | | | PRN, Pain, pain. Hold for SBP < | | AM PDT | | | | | 110, Starting 08/25/20 at 0448 | | | | | | + +-------+ +-------+---+---+ +-------+ +-------+---+---+ | Given | 08/31/20 | 15 mg | | | | | 20 10:13 | | | | | | PM PDT | | | | +-------+ +-------+---+---+ | Given | 08/31/20 | 15 mg | | | | | 20 6:06 | | | | | | PM PDT | | | | +-------+ +-------+---+---+ +---+---+ | | | +---+---+ + +-------+ +------+---+---+ | oxyCODONE (ROXICODONE) tablet 5 | Given | 08/26/20 | 5 mg | | | | mg 5 mg, Oral, ONCE, Sat | | 20 9:35 | | | | | 08/26/20 at 0930, For 1 dose, 30 | | AM PDT | | | | | miuntes after midodrine given if | | | | | | | SBP more than 110mmhg, | | | | | | + +-------+ +------+---+---+ +---+---+ | | | +---+---+ + +-------+ +-------+---+---+ | perflutren lipid microspheres | Given | 08/25/20 | 3 mLs | | | | (DEFINITY) injection 3 mL 3 mL, | | 20 11:53 | | | | | Intravenous, ONCE PRN, Other, | | AM PDT | | | | | Starting Fri08/25/20 at 1153, For | | | | | | | 1 dose, Echo | | | | | | + +-------+ +-------+---+---+ +---+---+ | | | +---+---+ + +-------+ +------+---+---+ | polyethylene glycol (MIRALAX) | Given | 09/01/20 | 17 g | | | | powder 17 g 17 g, Oral, DAILY, | | 20 7:43 | | | | | First dose on Fri08/25/20 at | | AM PDT | | | | | 0900, Mix with 8 oz. water., | | | | | | + +-------+ +------+---+---+ +-------+ +------+---+---+ | Given | 08/31/20 | 17 g | | | | | 20 10:00 | | | | | | AM PDT | | | | +-------+ +------+---+---+ | Given | 08/29/20 | 17 g | | | | | 20 7:26 | | | | | | AM PDT | | | | +-------+ +------+---+---+ +---+---+ | | | +---+---+ + +-------+ +---------+---+---+ | promethazine (PHENERGAN) (IV | Given | 08/27/20 | 6.25 mg | | | | ONLY) injection 6.25 mg 6.25 mg, | | 20 12:57 | | | | | Intravenous, EVERY 6 HOURS PRN, | | PM PDT | | | | | Nausea, Vomiting, Starting Sun | | | | | | | 08/27/20 at 1251, Vesicant. When | | | | | | | ordered IV push: Dilute to | | | | | | | 10-20mL with NS. Give over 2-3 | | | | | | | minutes into large vein. Do not | | | | | | | give in hand/wrist or foot/ankle | | | | | | | vein. Max dose 12.5mg if giving | | | | | | | peripherally.Infuse in LARGE | | | | | | | Vein Only, | | | | | | + +-------+ +---------+---+---+ +---+---+ | | | +---+---+ + +-------+ +--------+---+---+ | sodium bicarbonate tablet 650 | Given | 08/25/20 | 650 mg | | | | mg 650 mg, Oral, 4 TIMES DAILY, | | 20 12:13 | | | | | First dose on Fri08/25/20 at 0900 | | PM PDT | | | | + +-------+ +--------+---+---+ +-------+ +--------+---+---+ | Given | 08/25/20 | 650 mg | | | | | 20 10:51 | | | | | | AM PDT | | | | +-------+ +--------+---+---+ + +---+ | | | + +---+ | sodium chloride 0.9% (NS) bolus | | | 100 mL 100 mL, Intravenous, | | | Administer over 15 Minutes, | | | DIALYSIS - PRN, Hypotension, | | | Starting 08/25/20 at 1607, | | | Treatment date(s): 08/25/2020, | | | 08/26/2020, For BP less than 100 | | | mm Hg. Give 100 mL bolus up to | | | 1000 mL. DIALYSIS USE ONLY - | | | DISCONTINUE AFTER DIALYSIS | | | THERAPY IS COMPLETE, Dialysis | | + +---+ | | | + +---+ | sodium chloride 0.9% (NS) bolus | | | 100 mL 100 mL, Intravenous, | | | Administer over 15 Minutes, | | | DIALYSIS - PRN, Hypotension, | | | Starting Fri08/28/20 at 1353, | | | Treatment date(s): 08/28/2020, For | | | BP less than 100 mm Hg. Give | | | 100 mL bolus up to 1000 mL. | | | DIALYSIS USE ONLY - DISCONTINUE | | | AFTER DIALYSIS THERAPY IS | | | COMPLETE, Dialysis | | + +---+ | | | + +---+ + +-------+ +-------+---+---+ | torsemide (DEMADEX) tablet 40 | Given | 09/01/20 | 40 mg | | | | mg 40 mg, Oral, DAILY, First | | 20 7:41 | | | | | dose on 08/27/20 at 0900 | | AM PDT | | | | + +-------+ +-------+---+---+ +-------+ +-------+---+---+ | Given | 08/31/20 | 40 mg | | | | | 20 10:00 | | | | | | AM PDT | | | | +-------+ +-------+---+---+ | Given | 08/30/20 | 40 mg | | | | | 20 3:33 | | | | | | PM PDT | | | | +-------+ +-------+---+---+ +---+---+ | | | +---+---+ documented in this encounter Additional Health Concerns [...]
--- OUTSIDE RECORDS SUMMARY | ~2020-09-15 | XMS | Encounter Summary ---
Demographics + + + | Address | [address] | | | [place] [address] | + + + | Home Phone [...] Team Providers + +------+ + | Care Route Carrier Name | Role | Phone | + +------+ + | Rahul Silva MD | PCP | | + +------+ + Encounter Details +--------+ + + + + | Date | Type | Department | Care Team | Description | +--------+ + + + + | 07/14/ | Orders Only | [facility] | Conversion | | | 2018 | | [facility] [place] | Transaction, | | | | | [address] | Provider Unknown | | | | | [address] [place], [place] | [phone] | | | | | [address] | (Fax) | | | | | [phone] | | | +--------+ + + + [...] | | | | | | [place] [address] | | | | | | [phone] | | | | | | | [...] [place] | | | | | | [address] | | | | | | | | +--------+ + + + + | 10/30/ | Virtual | Nephrology | Farrukh Acuna MD | | | 2019 | Office | | [address] | | | | Visit | | [address] [place] | | | | | | [address] | | | | | | | [...]
--- OUTSIDE RECORDS SUMMARY | ~2020-09-15 | XMS | Encounter Summary ---
Demographics + + + | Address | [address] | | | [place] [address] | + + + | Home Phone [...] Providers + +------+ + | Care Field Examiner Name | Role | Phone | + +------+ + | Rahul Silva MD | PCP | | + +------+ + Encounter Details +--------+ + + + + | Date | Type | Department | Care Team | Description | +--------+ + + + + | 12/16/ | Orders Only | [facility] | Conversion | | | 2016 | | NEPHROLOGY [place] | Transaction, | | | | | [address] | Provider Unknown | | | | | [address] [place] [address] | | | | | | [address] | (Fax) | | | | | [phone] | | | +--------+ + + + [...] | | | | | | [place] [address] | | | | | | [phone] | | | | | | | [...] [place] | | | | | | [address] | | | | | | | | +--------+ + + + + | 10/30/ | Virtual | Nephrology | Farrukh Acuna MD | | | 2019 | Office | | [address] | | | | Visit | | [address] [place] | | | | | | [address] | | | | | | | [...]
--- OUTSIDE RECORDS SUMMARY | ~2020-09-15 | XMS | Encounter Summary ---
Demographics + + + | Address | [address] | | | [place] [address] | + + + | Home Phone [...] Team Providers + +------+ + | Care Azure Developer Name | Role | Phone | [...] + + | 08/24/ | Telephone | [facility] | Farrukh Acuna MD | Other (Patient call) | | 2020 | | NEPHROLOGY [place] | [address] | | | | | [address] | [address] [place], [place] | | | | | [address] [place], [place] | [address] | | | | | [address] | | | | | | [phone] | | | +--------+ + + + [...] Miscellaneous Notes Telephone Encounter - Trinidad Simon Sap Ariba Consultant - 08/24/2020 4:11 PM PDTPatie nts daughter called to inform that patient is being transferred to [facility]. Dr. Acuna aware n o new orders [...] | | | | | | [place] [address] | | | | | | [phone] | | | | | | | [...] [place] | | | | | | [address] | | | | | | | | +--------+ + + + + | 10/30/ | Virtual | Nephrology | Farrukh Acuna MD | | | 2019 | Office | | [address] | | | | Visit | | [address] [place] | | | | | | [address] | | | | | | | [...]
--- OUTSIDE RECORDS SUMMARY | ~2020-09-15 | XMS | Encounter Summary ---
Demographics + + + | Address | [address] | | | [place] [address] | + + + | Home Phone [...] Providers + +------+ + | Care Hotel Reservationist Name | Role | Phone | + +------+ + | Rahul Silva MD | PCP | | + +------+ + Encounter Details +--------+ + + + + | Date | Type | Department | Care Team | Description | +--------+ + + + + | 05/27/ | Orders Only | [facility] | Farrukh Acuna MD | | | 2017 | | NEPHROLOGY [place] | [address] | | | | | [address] | [address] [place], [place] | | | | | [address] [place] | [address] | | | | | [address] | | | | | | [phone] | | | +--------+ + + + [...] | | | | | | [place] [address] | | | | | | [phone] | | | | | | | [...] [place] | | | | | | [address] | | | | | | | | +--------+ + + + + | 10/30/ | Virtual | Nephrology | Farrukh Acuna MD | | | 2019 | Office | | [address] | | | | Visit | | [address] [place] | | | | | | [address] | | | | | | | [...] | | | LAB | | | Kitt[place] | | | | | + + [...]
--- OUTSIDE RECORDS SUMMARY | ~2020-09-15 | XMS | Encounter Summary ---
Demographics + + + | Address | [address] | | | [place] [address] | + + + | Home Phone [...] Team Providers + +------+ + | Care Copping Machine Operator Name | Role | Phone [...] + + | 10/04/ | Documentati | [facility] | Simon, | Results (09/30/19) | | 2019 | on | NEPHROLOGY [place] | Trinidad [facility] | | | | | [address] | Slot Floorperson | | | | | [address] | | | | | | [place] | | | | | | [address] | | | | | | [phone] | | | +--------+ + + + [...] [place], | | | | | | [place] [address] | | | | | | [phone] | | | | | | | [...] [place] | | | | | | [address] | | | | | | | | +--------+ + + + + | 10/30/ | Virtual | Nephrology | Farrukh Acuna MD | | 2019 | Office | | [address] | | | | Visit | | [address] [place] | | | | | | [address] | | | | | | | [...]
--- OUTSIDE RECORDS SUMMARY | ~2020-09-15 | XMS | Encounter Summary ---
Demographics + + + | Address | [address] | | | [place] [address] | + + + | Home Phone [...] Team Providers + +------+ + | Care Cd Mixer Helper Name | Role | Phone | [...] + + | 10/20/ | Telephone | [facility] | Simon, | Other (Tera F/U) | | 2018 | | NEPHROLOGY [place] | Trinidad [facility] | | | | | [address] | Bale [place]iler | | | | | [address] [facility] | | | | | | [place] | | | | | | [address] | | | | | | [phone] | | | +--------+ + + + [...] encounter Miscellaneous Notes Telephone Encounter - Trinidad iSmon Coil Rewind Machine Operator - 10/20/2019 10:47 AM PSTCalle d to see if patient was scheduled for Aranesp. Per krys patient received injection "a coup le" days after his visit with Dr. Acuna this month. Patient is scheduled for the beginning o october for his next injection. docujones in this encounter Plan of Treatment +--------+ + + + + | Date | Type | Specialty | Care Team | Description | +--------+ + + + + | 09/19/ | Office | Cardiology | Blas March, | | | 2019 | Visit | | [address] | | | | | | DR [place], | | | | | | [place] [address] | | | | | | [phone] | | | | | | | [...] [place] | | | | | | [address] | | | | | | | [...]
--- OUTSIDE RECORDS SUMMARY | ~2020-09-15 | XMS | Encounter Summary ---
Demographics + + + | Address | [address] | | | [place] [address] | + + + | Home Phone [...] [place] | | | | | [address] | | + + + + + Care Team Providers + +------+ + | Care Associate Software Application Engineer Name | Role | Phone [...] | | | | | | [facility], [address] | | | | | | [place], [place] | | | | | | [address] | | | | | | [phone] | | | +--------+ + + + [...] as of this encounter Progress Notes Interface, Explosive Operator Fuse In - 12/25/2006 5:00 AM [facility] DATE: 03/16/98 PLASTIC SURGERY CLINIC [...] in the near future. Galo Arora M.D. Forest Landscape Ecology Professor, Division of Plastic & Reconstructive Surgery AYDEE/alfred documented in this encounter Plan of Treatment Not on filedocumented as of this encounter Visit Diagnoses Not on filedocumented in this encounter"
--- OUTSIDE RECORDS SUMMARY | ~2020-09-15 | XMS | Encounter Summary ---
Demographics + + + | Address | [address] | | | [place] [address] | + + + | Home Phone [...] Team Providers + +------+ + | Care Tractor Mechanic Name | Role | Phone | [...] [address] | | | | | [place], [place] | [place], [place] | | | | | [address] | [address] | | | | | [phone] | | | | | | | [...] | | | | | | [place] [address] | | | | | | [phone] | | | | | | | [...] [place] | | | | | | [address] | | | | | | | | +--------+ + + + + | 10/30/ | Virtual | Nephrology | Farrukh Acuna MD | | | 2019 | Office | | [address] | | | | Visit | | [address] [place] | | | | | | [address] | | | | | | | [...]
--- OUTSIDE RECORDS SUMMARY | ~2020-09-15 | XMS | Encounter Summary ---
Demographics + + + | Address | [address] | | | [place] [address] | + + + | Home Phone [...] Providers + +------+ + | Care Pick Up Driver Name | Role | Phone | [...] [address] | | | | | [place], [place] | [place], [place] | | | | | [address] | [address] | | | | | [phone] | [phone] | | | | | | | [...] | | | | | | [place] [address] | | | | | | [phone] | | | | | | | [...] [place] | | | | | | [address] | | | | | | | | +--------+ + + + + | 10/30/ | Virtual | Nephrology | Farrukh Acuna MD | | | 2019 | Office | | [address] | | | | Visit | | [address] [place] | | | | | | [address] | | | | | | | [...]
--- OUTSIDE RECORDS SUMMARY | ~2020-09-15 | XMS | Encounter Summary ---
Demographics + + + | Address | [address] | | | [place] [address] | + + + | Home Phone [...] Team Providers + +------+ + | Care Crystal Mounter Name | Role | Phone | + +------+ + | Rahul Silva MD | PCP | | + +------+ + Encounter Details +--------+ + + + + | Date | Type | Department | Care Team | Description | +--------+ + + + + | 09/18/ | Orders Only | [facility] | Conversion | | | 2018 | | NEPHROLOGY [place] | Transaction, | | | | | [address] | Provider Unknown | | | | | [address] [place] [address] | | | | | | [address] | (Fax) | | | | | [phone] | | | +--------+ + + + [...] | | | | | | [place] [address] | | | | | | [phone] | | | | | | | [...] [place] | | | | | | [address] | | | | | | | | +--------+ + + + + | 10/30/ | Virtual | Nephrology | Farrukh Acuna MD | | | 2019 | Office | | [address] | | | | Visit | | [address] [place] | | | | | | [address] | | | | | | | [...]
--- OUTSIDE RECORDS SUMMARY | ~2020-09-15 | XMS | Encounter Summary ---
Demographics + + + | Address | [address] | | | [place] [address] | + + + | Home Phone [...] Providers + +------+ + | Care Digital Imaging Specialist Name | Role | Phone | [...] + + | 02/07/ | Refill | [facility] | Farrukh Acuna MD | Medication Refill | | 2020 | | NEPHROLOGY [place] | [address] | | | | | [address] | [address] [place], [place] | | | | | [address] | [address] | | | | | [place] | | | | | | [address] | | | | | | [phone] | | | +--------+--------+ + + + [...] encounter Miscellaneous Notes Telephone Encounter - Kanwal Simon Medical Assistant - 02/09/2020 4:05 PM PDTPer Nestor Acuna he will not fill this medication as it is not a kidney medication. Patient can wait until appointment with PCP to get a redill of medication. Patients daughter verbalized unde rstanding and urena no further questions at this time. ddendum Note - Kanwal Simon Medica l Value Analyst - 02/08/2020 5:22 PM PDT Addended by: KANWAL SIMON on: 02/08/2020 05:22 P M Modules accepted: Orders Telephone Encounter - Kanwal Simon Medical Assistant - 02/08/2020 5:19 PM PDTPatien [...] | | 2019 | Visit | | INTERNAL REVENUE AGENT [address] | | | | | | [address] [place], | | | | | | [place] [address] | | | | | | [phone] | | | | | | | [...] [place] | | | | | | [address] | | | | | | | | +--------+ + + + + | 10/30/ | Virtual | Nephrology | Farrukh Acuna MD | | | 2019 | Office | | [address] | | | | Visit | | [address] [place] | | | | | | [address] | | | | | | | | +--------+ + + + + documented as of this encounter Visit Diagnoses + + | Diagnosis | + + | Essential hypertension - Primary Unspecified essential hypertension | + + documented in this encounter"
--- OUTSIDE RECORDS SUMMARY | ~2020-09-15 | XMS | Encounter Summary ---
Demographics + + + | Address | [address] | | | [place] [address] | + + + | Home Phone [...] Providers + +------+ + | Care Card Puncher Name | Role | Phone | + [...] + + | 09/17/ | Documentati | [facility] | KevonOly sullivan | Labs Only (interpath | | 2019 | on | NEPRHOLOGY [place] | V, Medical | 08/24/19) | | | | [address] | Vacuum Worker | | | | | [address] [place], [place] | | | | | | [address] | | | | | | [phone] | | | +--------+ + + + [...] | | | | | | [place] [address] | | | | | | [phone] | | | | | | | [...] [place] | | | | | | [id number] | | | | | | | | +--------+ + + + + | 10/30/ | Virtual | Nephrology | Farrukh Acuna MD | | | 2019 | Office | | [address] | | | | Visit | | [address] [place], [place] | | | | | | [address] | | | | | | | [...] | REFERENCE LAB | [address] [place] | [place] | [phone] | | [facility] | | [address] | | + + + + + | REFERENCE LAB | [address] | [place] | [phone] | | INTERBIPIN | | [address] | | + + + + + documented in this encounter Visit Diagnoses Not on filedocumented in this encounter"
--- OUTSIDE RECORDS SUMMARY | ~2020-09-15 | XMS | Encounter Summary ---
Demographics + + + | Address | [address] | | | [place] [address] | + + + | Home Phone [...] Providers + +------+ + | Care Balance Bridge Inspector Name | Role | Phone | [...] Unknown | | | | | [address] [place], [place] | [phone] | | | | | [address] | (Fax) | | | | | [phone] | | | +--------+ + + + [...] | | | | | | [place] [address] | | | | | | [phone] | | | | | | | [...] [place] | | | | | | [address] | | | | | | | | +--------+ + + + + | 10/30/ | Virtual | Nephrology | Farrukh Acuna MD | | | 2019 | Office | | [address] | | | | Visit | | [address] [place] | | | | | | [address] | | | | | | | [...]
--- OUTSIDE RECORDS SUMMARY | ~2020-09-15 | XMS | Encounter Summary ---
Demographics + + + | Address | [address] | | | [place] [address] | + + + | Home Phone [...] Providers + +------+ + | Care President And Ceo Name | Role | Phone | [...] | | ([facility]) | [place] | | | | | | Procedures | [address] | | | | | | [place] Arm | Phone: | | | | | | Bilateral | [phone] | | | | | | Mapping For | Fax: | | | | | | Dialysis | [phone] | | +--------+--------+ + + + + [...] | | ([facility]) | [place] | | | | | | Procedures | [address] | | | | | | VAS Arm | Phone: | | | | | | Bilateral | [phone] | | | | | | Mapping For | Fax: | | | | | | Dialysis | [phone] | | +--------+--------+ + + + + Encounter Details +--------+ + + + + | Date | Type | Department | Care Team | Description | +--------+ + + + + | 08/20/ | Hospital | [facility] | Trisha Conner DNP | 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 | VASCULAR SURGERY | [address] | renal disease) ([facility]) | | | | ULTRASOUND [address] | [address] [place], [place] | | | | | [address] | [address] | | | | | [place], [place] | | | | | | [address] | | | | | | [phone] | | | +--------+ + + + [...] | | | | ([facility]), Secondary | | | | | | | hyperparathyroidism | | | | | | | ([facility]) | | | | | | + [...] + + +---------+ + + | BRIAN COSTAZARYA | Inject 25 Units | | 0 [...] | | | | | | [place] [address] | | | | | | [phone] | | | | | | | [...] ST | | | | | | [place] | | | | | | [address] | | | | | | | | +--------+ + + + + | 10/30/ | Virtual | Nephrology | Farrukh Acuna MD | | | 2019 | Office | | [address] | | | | Visit | | [address] [place] | | | | | | [address] | | | | | | | [...] Procedure Note | + + | Wiley, Meir Results In 08/20/2019 4:27 PM PDT | [...]
--- OUTSIDE RECORDS SUMMARY | ~2020-09-15 | XMS | Encounter Summary ---
Demographics + + + | Address | [address] | | | [place] [address] | + + + | Home Phone [...] Providers + +------+ + | Care Senior Warehouse Clerk Name | Role | Phone | [...] + + | 02/27/ | Documentati | [facility] | Simon, | Results (bmp | | 2019 | on | NEPHROLOGY [place] | Trinidad [facility] | 02/24/20) | | | | [address] | Ceramic Saw Tender | | | | | [address] | | | | | | [place], [place] | | | | | | [address] | | | | | | [phone] | | | +--------+ + + + [...] | | 2019 | Visit | | DOCUMENTATION BILLING CLERK [address] | | | | | | DR [place], | | | | | | [place] [address] | | | | | | [phone] | | | | | | | [...] [place] | | | | | | [address] | | | | | | | | +--------+ + + + + | 10/30/ | Virtual | Nephrology | Farrukh Acuna MD | | | 2019 | Office | | [address] | | | | Visit | | [address] [place] | | | | | | [address] | | | | | | | [...]
--- OUTSIDE RECORDS SUMMARY | ~2020-09-15 | XMS | Encounter Summary ---
Demographics + + + | Address | [address] | | | [place] [address] | + + + | Home Phone [...] Team Providers + +------+ + | Care Greenskeeper Head Name | Role | Phone | [...] + + | 09/28/ | Telephone | [facility] | Sandy Gomez, | Appointment | | 2019 | | VASCULAR SURGERY | RN | | | | | [address] | | | | | | [place] | | | | | | [address] | | | | | | [phone] | | | +--------+ + + + [...] states the patient is currently admitted in [place] and will no t make it to [...] | | | | | | [place] [address] | | | | | | [phone] | | | | | | | [...] [place] | | | | | | [address] | | | | | | | | +--------+ + + + + | 10/30/ | Virtual | Nephrology | Farrukh Acuna MD | | | 2020 | Office | | [address] | | | | Visit | | [address] [place] | | | | | | [id number] | | | | | | | | +--------+ + + + + documented as of this encounter Visit Diagnoses Not on filedocumented in this encounter"
--- OUTSIDE RECORDS SUMMARY | ~2020-09-15 | XMS | Encounter Summary ---
Demographics + + + | Address | [address] | | | [place] [address] | + + + | Home Phone [...] Team Providers + +------+ + | Care Para Operator Name | Role | Phone | [...] | | | stage 5, GFR | [address] | | | | | | less than | Phone: | | | | | | 15 ml/min | [phone] | | | | | | (HCC) | Fax: | | | | | | Procedures | [phone] | | | | | | [place] [...] | | | stage 5, GFR | [address] | | | | | | less than | Phone: | | | | | | 15 ml/min | [phone] | | | | | | ([facility]) | Fax: | | | | | | Procedures | [phone] | | | | | | VAS [...] | | ULTRASOUND [address] | [address] [place], [place] | GFR less than 15 | | | | [address] | [address] | ml/min ([facility]) | | | | [place] | | | | | | [address] | | | | | | [phone] | | | +--------+ + + + [...] [place]) | | | | | | + [...] [place]) | | | | | | + [...] + + + +---------+ + + | [facility] | Inject 25 Units | | [...] | | | | | | [place] [address] | | | | | | [phone] | | | | | | | [...] [place] | | | | | | [address] | | | | | | | | +--------+ + + + + | 10/30/ | Virtual | Nephrology | Farrukh Acuna MD | | | 2019 | Office | | [address] | | | | Visit | | [address] [place] | | | | | | [address] | | | | | | | [...]
--- OUTSIDE RECORDS SUMMARY | ~2020-09-15 | XMS | Encounter Summary ---
Demographics + + + | Address | [address] | | | [place] [address] | + + + | Home Phone [...] Team Providers + +------+ + | Care Canvass Manager Name | Role | Phone | + +------+ + | Rahul Silva MD | PCP | | + +------+ + Encounter Details +--------+ + + + + | Date | Type | Department | Care Team | Description | +--------+ + + + + | 08/20/ | Orders Only | [facility] | Farrukh Acuna MD | Stage 4 chronic | | 2019 | | NEPHROLOGY [place] | [address] | kidney disease (HCC) | | | | [address] | [address] [place], [place] | (Primary Dx); | | | | [address] | [address] | Persistent | | | | [place], [place] | | proteinuria; | | | | [address] | | Secondary | | | | [phone] | | hyperparathyroidism | | | | [...] [place], | | | | | | [place] [address] | | | | | | [phone] | | | | | | | [...] [place] | | | | | | [address] | | | | | | | | +--------+ + + + + | 10/30/ | Virtual | Nephrology | Farrukh Acuna MD | | | 2019 | Office | | [address] | | | | Visit | | [address] | | | | | | [address] | | | | | | | [...]
--- OUTSIDE RECORDS SUMMARY | ~2020-09-15 | XMS | Encounter Summary ---
Demographics + + + | Address | [address] | | | [place] [address] | + + + | Home Phone [...] Providers + +------+ + | Care Infrastructure Design Engineer Name | Role | Phone [...] + + | 03/14/ | Refill | [facility] | Farrukh Acuna MD | Medication Refill | | 2019 | | NEPHROLOGY [place] | [address] | | | | | [address] | [address] [place], [place] | | | | | [address] | [address] | | | | | [place] | | | | | | [address] | | | | | | [phone] | | | +--------+--------+ + + + [...] | | | | | | [place] [address] | | | | | | [phone] | | | | | | | [...] [place] | | | | | | [id number] | | | | | | | | +--------+ + + + + | 10/30/ | Virtual | Nephrology | Farrukh Acuna MD | | | 2019 | Office | | [address] | | | | Visit | | [address] [place], [place] | | | | | | [address] | | | | | | | [...]
--- OUTSIDE RECORDS SUMMARY | ~2020-09-15 | XMS | Encounter Summary ---
Demographics + + + | Address | [address] | | | [place] [address] | + + + | Home Phone [...] Providers + +------+ + | Care Tool Distributor Name | Role | Phone | + +------+ + | Rahul Silva MD | PCP | | + +------+ + Encounter Details +--------+ + + + + | Date | Type | Department | Care Team | Description | +--------+ + + + + | 07/24/ | Orders Only | [facility] | Provider, | Chronic kidney | | 2019 | | SYSTEM GENERIC OP | MD [address] | disease, stage IV | | | | CONVERSION [address] | [address] | (severe) ([facility]); | | | | [address] [place], [place] | [place] [address] | Persistent | | | | [address] | | proteinuria; | | | | [phone] | | Secondary | | | | [...] | | | | | | [place] [address] | | | | | | [phone] | | | | | | | [...] [place] | | | | | | [address] | | | | | | | [...]
--- OUTSIDE RECORDS SUMMARY | ~2020-09-15 | XMS | Encounter Summary ---
Demographics + + + | Address | [address] | | | [place] [address] | + + + | Home Phone [...] Team Providers + +------+ + | Care Harness Worker Name | Role | Phone | + +------+ + | Rahul Silva MD | PCP | | + +------+ + Encounter Details +--------+ + + + + | Date | Type | Department | Care Team | Description | +--------+ + + + + | 01/23/ | Orders Only | [facility] | Collin Mirza, | | | 2015 | | NEPHROLOGY [place] | NATIONAL VAN TRUCK DRIVER [address] | | | | | [address] | [address] | | | | | [address] [place], [place] | [place] | | | | | [address] | [address] | | | | | [phone] | [phone] | | | | | | | [...] | | | | | | [place] [address] | | | | | | [phone] | | | | | | | | +--------+ + + + + | 09/19/ | Clinical | Cardiology | | | 2019 | Support | | | | +--------+ + + + + | 10/03/ | Office | Cardiology | Ron Orosco MD | | 2019 | Visit | | [address] | | | | | | [place] | | | | | | [id number] | | | | | | | | +--------+ + + + + | 10/30/ | Virtual | Nephrology | Farrukh Acuna MD | | | 2020 | Office | | [address] | | | | Visit | | [address] [place], [place] | | | | | | [address] | | | | | | | [...] | | | LAB | | | Sammarinese | | | | | + + [...]
--- OUTSIDE RECORDS SUMMARY | ~2020-09-15 | XMS | Encounter Summary ---
Demographics + + + | Address | [address] | | | [place] [address] | + + + | Home Phone [...] Providers + +------+ + | Care Band Lining Bander Name | Role | Phone | + +------+ + PCP | Unavailable | + +------+ + Encounter Details +--------+ + + + + | Date | Type | Department | Care Team | Description | +--------+ + + + + | 12/31/ | Hospital | [facility] | | | | 2000 | Encounter | MED CTR XRAY [address] | | | | | | [address]ist [address] | | | | | | [place] [address] | | | | | | [phone] | | | +--------+ + + + [...] | | | | | | [place] [address] | | | | | | [phone] | | | | | | | [...] [place] | | | | | | [address] | | | | | | | | +--------+ + + + + | 10/30/ | Virtual | Nephrology | Farrukh Acuna MD | | | 2019 | Office | | [address] | | | | Visit | | [address] [place] | | | | | | [address] | | | | | | | | +--------+ + + + + documented as of this encounter Visit Diagnoses Not on filedocumented in this encounter"
--- OUTSIDE RECORDS SUMMARY | ~2020-09-15 | XMS | Encounter Summary ---
Demographics + + + | Address | [address] | | | [place] [address] | + + + | Home Phone [...] Team Providers + +------+ + | Care Patch Sander Name | Role | Phone | [...] [address] | | | | | [place], [place] | [place], [place] | | | | | [address] | [address] | | | | | [phone] | [phone] | | | | | | | [...] | | | | | | [place] [address] | | | | | | [phone] | | | | | | | [...] [place] | | | | | | [address] | | | | | | | | +--------+ + + + + | 10/30/ | Virtual | Nephrology | Farrukh Acuna MD | | | 2019 | Office | | [address] | | | | Visit | | [address] [place] | | | | | | [address] | | | | | | | [...]
--- OUTSIDE RECORDS SUMMARY | ~2020-09-15 | XMS | Encounter Summary ---
Demographics + + + | Address | [address] | | | [place] [address] | + + + | Home Phone [...] [place] | | | | | [address] | | + + + + + Care Team Providers + +------+ + | Care Statistical Financial Analyst Name | Role | Phone [...] [id number] | | | | | | [place], [place] | | | | | | [address] | | | | | | [phone] | | | +--------+ + + + [...] [facility] | [address] | [place] [address] | | | PATHOLOGY | [address] [...] HEALTH CENTER | [address] | [place] [address] | | | PATHOLOGY | [address] [...] | + + + + + | [facility] DEPARTMENT OF | [address] | [place] [address] | | | PATHOLOGY | [address] [...] [facility]ALTH CENTER | [address] | [place] [address] | | | PATHOLOGY | [address] | | | + + + + + documented in this encounter Visit Diagnoses Not on filedocumented in this encounter
--- OUTSIDE RECORDS SUMMARY | ~2020-09-15 | XMS | Encounter Summary ---
Demographics + + + | Address | [address] | | | [place] [address] | + + + | Home Phone [...] Providers + +------+ + | Care Distribution Specialist Name | Role | Phone | [...] + + | 12/02/ | Documentati | [facility] | Simon, | Results (11/29/19) | | 2020 | on | NEPHROLOGY [place] | [facility] | | | | | [address] | Programmer Business | | | | | [address] [place], [place] | | | | | | [address] | | | | | | [phone] | | | +--------+ + + + [...] | | 2019 | Visit | | ARCHITECTURE INTERN [address] | | | | | | [address] [place], | | | | | | [place] [address] | | | | | | [phone] | | | | | | | [...] [place] | | | | | | [address] | | | | | | | | +--------+ + + + + | 10/30/ | Virtual | Nephrology | Farrukh Acuna MD | | | 2019 | Office | | [address] | | | | Visit | | [address] [place] | | | | | | [address] | | | | | | | [...]
--- OUTSIDE RECORDS SUMMARY | ~2020-09-15 | XMS | Encounter Summary ---
Demographics + + + | Address | [address] | | | [place] [address] | + + + | Home Phone [...] Team Providers + +------+ + | Care Graphics Specialist Name | Role | Phone | + +------+ + PCP | Unavailable | + +------+ + Encounter Details +--------+ + + + + | Date | Type | Department | Care Team | Description | +--------+ + + + + | 07/18/ | [facility] | [facility] | Nelson Lutz MD | | | 2002 | Encounter | MED CTR GENERIC OP | [address], [place] | | | | | CONV DEPT [address] | [address] | | | | | [place], | [address] | | | | | [place] [address] | | | | | | [phone] | | | +--------+ + + + [...] | | | | | | [place] [address] | | | | | | [phone] | | | | | | | [...] [place] | | | | | | [id number] | | | | | | | | +--------+ + + + + | 10/30/ | Virtual | Nephrology | Farrukh Acuna MD | | | 2019 | Office | | [address] | | | | Visit | | [facility] | | | | | | [address] | | | | | | | | +--------+ + + + + documented as of this encounter Visit Diagnoses Not on filedocumented in this encounter"
--- OUTSIDE RECORDS SUMMARY | ~2020-09-15 | XMS | Encounter Summary ---
Demographics + + + | Address | [address] | | | [place] [address] | + + + | Home Phone [...] Team Providers + +------+ + | Care Portable Machine Cutter Name | Role | Phone | + +------+ + | Rahul Silva MD | PCP | | + +------+ + Encounter Details +--------+ + + + + | Date | Type | Department | Care Team | Description | +--------+ + + + + | 05/27/ | Orders Only | [facility] | Farrukh Acuna MD | | | 2019 | | NEPHROLOGY [place] | [address] | | | | | [address] | [address] [place], [place] | | | | | [address] [place], [place] | [address] | | | | | [address] | | | | | | [phone] | | | +--------+ + + + [...] | | | | | | [place] [address] | | | | | | [phone] | | | | | | | [...] [place] | | | | | | [address] | | | | | | | | +--------+ + + + + | 10/30/ | Virtual | Nephrology | Farrukh Acuna MD | | | 2019 | Office | | [address] | | | | Visit | | [address] [place] | | | | | | [address] | | | | | | | [...] | | | LAB | | | Monegasque | | | | | + + [...]
--- OUTSIDE RECORDS SUMMARY | ~2020-09-15 | XMS | Encounter Summary ---
Demographics + + + | Address | [address] | | | [place] [address] | + + + | Home Phone [...] [place] | | | | | [address] | | + + + + + Care Team Providers + +------+ + | Care Media Analytics Manager Name | Role | Phone [...] [address] | | | | | | [place], [place] | | | | | | [address] | | | | | | [phone] | | | +--------+ + + + [...] as of this encounter Progress Notes Interface, Pricer In - 01/09/2007 5:07 AM [facility] DATE: 10/03/97 [facility] - PROGRESS NOTE CHIEF [...] Vargas D.O. Resident, Anesthesiology Nelson Melara M.D. Low Pressure Boiler Operator, Anest[facility]iology [facility] NESTOR/dm cc: [place] [address] JESSENIA RODRIGUEZ MD DEPARTMENT OF FAMILY MEDICINE [facility] documented in this encounter Plan of Treatment Not on filedocumented as of this encounter Visit Diagnoses Not on filedocumented in this encounter"
--- OUTSIDE RECORDS SUMMARY | ~2020-09-15 | XMS | Encounter Summary ---
Demographics + + + | Address | [address] | | | [place] [address] | + + + | Home Phone [...] Providers + +------+ + | Care Civil Engineering Design Draftsperson Name | Role | Phone | + +------+ + | Rahul Silva MD | PCP | | + +------+ + Encounter Details +--------+ + + + + | Date | Type | Department | Care Team | Description | +--------+ + + + + | 02/16/ | Abstract | [facility] | Jose L Magana, | PAOLO (obstructive | | 2013 | | PULMONARY [address] | MD [address] | sleep apnea) | | | | [place]an[place], | [place] | (Primary Dx); COPD | | | | [place] [address] | [address] | (chronic obstructive | | | | [phone] | | pulmonary disease) | | | | | | ([facility]) | +--------+ + + + [...] | | | | | | [place] [address] | | | | | | [phone] | | | | | | | [...] [place] | | | | | | [address] | | | | | | | | +--------+ + + + + | 10/30/ | Virtual | Nephrology | Farrukh Acuna MD | | | 2020 | Office | | [address] | | | | Visit | | [address] [place], [place] | | | | | | [address] | | | | | | | [...]
--- OUTSIDE RECORDS SUMMARY | ~2020-09-15 | XMS | Encounter Summary ---
Demographics + + + | Address | [address] | | | [place] [address] | + + + | Home Phone [...] Team Providers + +------+ + | Care Follow Up Manager Name | Role | Phone | [...] [address] | | | | | [place], [place] | [place], [place] | | | | | [address] | [address] | | | | | [phone] | [phone] | | | | | | | [...] | | | | | | [place] [address] | | | | | | [phone] | | | | | | | [...] [place] | | | | | | [address] | | | | | | | | +--------+ + + + + | 10/30/ | Virtual | Nephrology | Farrukh Acuna MD | | | 2019 | Office | | [address] | | | | Visit | | [address] [place] | | | | | | [address] | | | | | | | [...]
--- OUTSIDE RECORDS SUMMARY | ~2020-09-15 | XMS | Encounter Summary ---
Demographics + + + | Address | [address] | | | [place] [address] | + + + | Home Phone [...] Providers + +------+ + | Care Corporate Auditor Name | Role | Phone | [...] + + | 05/31/ | Documentati | [facility] | Ami Cole, | Results | | 2020 | on | NEPRHOLOGY INDEPENDENCE | Geographic Area Intelligence Officer | (interpath-05/29/2020 | | | | [address] | | ) | | | | [address] [place], [place] | | | | | | [address] | | | | | | [phone] | | | +--------+ + + + [...] | | | | | | [place] [address] | | | | | | [phone] | | | | | | | [...] [place] | | | | | | [address] | | | | | | | | +--------+ + + + + | 10/30/ | Virtual | Nephrology | Farrukh Acuna MD | | | 2019 | Office | | [address] | | | | Visit | | [address] [place], [place] | | | | | | [address] | | | | | | | [...]
--- OUTSIDE RECORDS SUMMARY | ~2020-09-15 | XMS | Encounter Summary ---
Demographics + + + | Address | [address] | | | [place] [address] | + + + | Home Phone [...] Team Providers + +------+ + | Care Funds Development Director Name | Role | Phone [...] | | | 2017 | | NEPHROLOGY [place] | [address] | | | | | [address] | [address] [place], [place] | | | | | [address] [place] | [address] | | | | | [address] | | | | | | [phone] | | | +--------+ + + + [...] | | | | | | [place] [address] | | | | | | [phone] | | | | | | | [...] [place] | | | | | | [address] | | | | | | | | +--------+ + + + + | 10/30/ | Virtual | Nephrology | Farrukh Acuna MD | | | 2019 | Office | | [address] | | | | Visit | | [address] [place] | | | | | | [address] | | | | | | | [...] | | | LAB | | | Hungarian | | | | | + + [...]
--- OUTSIDE RECORDS SUMMARY | ~2020-09-15 | XMS | Encounter Summary ---
Demographics + + + | Address | [address] | | | [place] [address] | + + + | Home Phone [...] Providers + +------+ + | Care Operations Vocational Instructor Name | Role | Phone | + +------+ + | Rahul Silva MD | PCP | | + +------+ + Encounter Details +--------+ + + + + | Date | Type | Department | Care Team | Description | +--------+ + + + + | 07/27/ | Orders Only | [facility] | Farrukh Acuna MD | Chronic kidney | | 2019 | | [facility] | [address] | disease, stage IV | | | | [address] | [address] [place], [place] | (severe) (HCC); | | | | [address] [place], [place] | [address] | Chronic kidney | | | | [address] | | disease, stage IV | | | | [phone] | | (severe) (HCC); | | | [...] | | | | | | [place] [address] | | | | | | [phone] | | | | | | | [...] [place] | | | | | | [id number] | | | | | | | | +--------+ + + + + | 10/30/ | Virtual | Nephrology | Farrukh Acuna MD | | 2019 | Office | | [address] | | | | Visit | | [address] [place], [place] | | | | | | [address] | | | | | | | [...]
--- OUTSIDE RECORDS SUMMARY | ~2020-09-15 | XMS | Encounter Summary ---
Demographics + + + | Address | [address] | | | [place] [address] | + + + | Home Phone [...] Providers + +------+ + | Care Manager Business Operations Name | Role | Phone | + +------+ + | Mehrdad Bergman | PCP | | + +------+ + Encounter Details +--------+ + + + + | Date | Type | Department | Care Team | Description | +--------+ + + + + | 03/16/ | Orders Only | [facility] | Trisha Conner DNP | | | 2020 | | VASCULAR SURGERY | [address] | | | | | [address] | [place] | | | | | [place], [place] | [address] | | | | | [address] | | | | | | [phone] | | | +--------+ + + + [...] He does not want to come to [facility] until the pandemic is over [...] | | | | | | [place] [address] | | | | | | [phone] | | | | | | | [...] | | | Visit | | [address] [place] | | | | | | [address] | | | | | | | | +--------+ + + + + documented as of this encounter Visit Diagnoses Not on filedocumented in this encounter"
--- OUTSIDE RECORDS SUMMARY | ~2020-09-15 | XMS | Encounter Summary ---
Demographics + + + | Address | [address] | | | [place] [address] | + + + | Home Phone [...] Team Providers + +------+ + | Care Pr Intern Name | Role | Phone | [...] | Transaction, | | | | | [place], [place] | Provider Unknown | | | | | [address] | [phone] | | | | | [phone] | | | +--------+ + + + [...] | | | | | | [place] [address] | | | | | | [phone] | | | | | | | [...] [place] | | | | | | [address] | | | | | | | | +--------+ + + + + | 10/30/ | Virtual | Nephrology | Farrukh Acuna MD | | | 2019 | Office | | [address] | | | | Visit | | [address] [place] | | | | | | [address] | | | | | | | [...]
--- OUTSIDE RECORDS SUMMARY | ~2020-09-15 | XMS | Encounter Summary ---
Demographics + + + | Address | [address] | | | [place] [address] | + + + | Home Phone [...] [place] | | | | | [address] | | + + + + + Care Team Providers + +------+ + | Care Instructor Of Nursing Name | Role | Phone | + +------+ + PCP | Unavailable | + +------+ + Encounter Details +--------+ + + + + | Date | Type | Department | Care Team | Description | +--------+ + + + + | 02/26/ | Results | | Other, Faculty | | | 1993 | Only | | [phone] | | +--------+ + + + + [...] | | + +---------+ + + | [facility] DEPARTMENT OF | | | | | RADIOLOGY | | | | + +---------+ + + documented in this encounter Visit Diagnoses Not on filedocumented in this encounter"
--- OUTSIDE RECORDS SUMMARY | ~2020-09-15 | XMS | Encounter Summary ---
Demographics + + + | Address | [address] | | | [place] [address] | + + + | Home Phone [...] + + | 06/05/ | Virtual | [facility] | Farrukh Acuna MD | CKD (chronic kidney | | 2019 | Office | NEPHROLOGY [place] | [address] | disease) stage 5, | | | Visit | [address] | [address] [place], [place] | GFR less than 15 | | | | [address] | [address] | ml/min (HCC) | | | | [place], [place] | | (Primary Dx); Anemia | | | | [address] | | of chronic kidney | | | | [phone] | | failure, stage 5 | | | | | | ([facility]); Persistent | | | | | | proteinuria; | | | | | | Essential | | | | | | hypertension; Iron | | | | | | deficiency; | | | | | | Secondary | | | | | | hyperparathyroidism | | | | | | ([facility]); 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 I see no need to send [...] 03/01/19. He was in the ED at [facility] in late 05/2020 with CP & dyspnea; [...] with severe pneumonia, severe ZEKE; needed SENIOR CONTROLS ANALYST for ~5 weeks b efore renal function recovery mid 12/2016. He was admitted to [facility] for 3 nights in July 2016 for [...] with severe pneumonia, severe ZEKE; needed SENIOR CONTROLS ANALYST for ~5 weeks b efore renal [...] I see no need for acute SENIOR CONTROLS ANALYST. I see no need to send [...] or concerns. Truly yours, Farrukh Acuna MD [facility] This exam was initially conducted via a secure 256-bit AES encrypted bidirectional video se ssion. You have chosen to receive care through the use of telemedicine. Telemedicine enables [facility] care providers at different locations [...] | | | | | | [place] [address] | | | | | | [phone] | | | | | | | [...] [place] | | | | | | [address] | | | | | | | | +--------+ + + + + | 10/30/ | Virtual | Nephrology | Farrukh Acuna MD | | | 2019 | Office | | [address] | | | | Visit | | [address] [place], [place] | | | | | | [address] | | | | | | | | +--------+ + + + + documented as of this encounter Visit Diagnoses + + | Diagnosis | + + | CKD (chronic kidney disease) stage 5, GFR less than 15 ml/min ([facility]) - Primary Chronic | | kidney disease, Stage V | + + | Anemia of chronic kidney failure, stage 5 ([facility]) | + + | Persistent [...]
--- OUTSIDE RECORDS SUMMARY | ~2020-09-15 | XMS | Encounter Summary ---
Demographics + + + | Address | [address] | | | [place] [address] | + + + | Home Phone [...] [place] | | | | | [address] | | + + + + + Care Team Providers + +------+ + | Care Phlebotomy Supervisor Name | Role | Phone | [...] | | | | | [facility], [address] | | | | | | [place], [place] | | | | | | [address] | | | | | | [phone] | | | +--------+ + + + [...] as of this encounter Progress Notes Interface, Media Monitor In - 01/06/2007 5:03 AM PST CLINIC DATE: 11/10/97 [facility] PAIN [facility] - FOLLOW-UP [...] of narcotic medication misuse. Nelson Melara M.D. Electrolysis Needle Operator, Anesthesiology [facility] MANDY/camryn cc: Robert Carlson M.D. Professor, Vascular Surgery documented in this encounter Plan of Treatment Not on filedocumented as of this encounter Visit Diagnoses Not on filedocumented in this encounter"
--- OUTSIDE RECORDS SUMMARY | ~2020-09-15 | XMS | Encounter Summary ---
Demographics + + + | Address | [address] | | | [place] [address] | + + + | Home Phone [...] [place] | | | | | [address] | | + + + + + Care Team Providers + +------+ + | Care Fiberglass Pipe Covering Supervisor Name | Role | Phone | [...] | | [address] | [address] [place], | | | | | [address] | [place] [address] | | | | | [place] | [phone] | | | | | [address] | | | | | | [phone] | | | +--------+ + + + [...] | | | | | | a [place]-Lupe catheter | | | | | | [...] | | | | placement of a [place]pe | | | | | | catheter. CHEST, | | | | | | SINGLE AP PORTABLE: | | | | | | 03-31-93 AT 1000 HOURS | | | | | | FINDINGS: Since the | | | | | | prior study, the | | | | | | [place] catheter has | | | | | [...] IMPRESSION: | | | | | | [place] catheter | | | | | | [...] | | | | | | the apula. The | | | | | | [place] catheter | | | | | | [...] and | | | | | | [place] catheter | | | | | | [...] endotracheal | | | | | | tube,[place]-Lupe catheter | | | | | | [...] | + + + + + | [facility] | [address] | [place] [address] | | | PATHOLOGY | [address] | | | + + + + + documented in this encounter Visit Diagnoses Not on filedocumented in this encounter"
--- OUTSIDE RECORDS SUMMARY | ~2020-09-15 | XMS | Encounter Summary ---
Demographics + + + | Address | [address] | | | [place] [address] | + + + | Home Phone [...] Team Providers + +------+ + | Care Geotechnical Laboratory Technician Name | Role | Phone | + +------+ + | Rahul Silva MD | PCP | | + +------+ + Encounter Details +--------+ + + + + | Date | Type | Department | Care Team | Description | +--------+ + + + + | 10/03/ | Orders Only | [facility] | Collin Mirza, | | | 2016 | | NEPHROLOGY [place] | LUSTER REPAIRER [address] | | | | | [address] | [address] | | | | | [address] [place], [place] | [place] | | | | | [address] | [address] | | | | | [phone] | [phone] | | | | | | | [...] | | | | | | [place] [address] | | | | | | [phone] | | | | | | | [...] [place] | | | | | | [address] | | | | | | | | +--------+ + + + + | 10/30/ | Virtual | Nephrology | Farrukh Acuna MD | | | 2019 | Office | | [address] | | | | Visit | | [address] [place] | | | | | | [address] | | | | | | | [...]
--- OUTSIDE RECORDS SUMMARY | ~2020-09-15 | XMS | Encounter Summary ---
Demographics + + + | Address | [address] | | | [place] [address] | + + + | Home Phone [...] Providers + +------+ + | Care Dining Services Director Name | Role | Phone [...] | | | hip | [address] | | | | | | fracture, | [place] | | | | | | initial | [place], [place] | | | | | | encounter | [id number] | | | | | | ([facility]) | Phone: | | | | | | Status post | [phone] | | | | | | above knee | Fax: | | | | | | amputation | [phone] | | | | | | of [...] + + | 08/03/ | Hospital | [facility] | Jose Andrade | Laceration of left | | 2016 - | Encounter | [facility] | MD Mehrdad [address] | ear, initial | | | | [address] [place] | [address] [place] | encounter (Primary | | 08/05/ | | [place] [address] | [place] [address] | Dx); Closed left hip | | 2015 | | [phone] | [phone] | fracture, initial | | | | | | encounter ([facility]); | | | | | Linda Steiner, | Fall, initial | | | | | DO [address] | encounter; Acute | | | | | [place] [address] [place], | pain; Hyperkalemia; | | | | | [place] [address] | CKD (chronic kidney | | | | | [phone] | disease), | | | | | [...] | | | | | | type ([facility]); Insulin | | | | | | dependent type 2 | | | | | | diabetes mellitus, | | | | | | uncontrolled (HCC); | | | | | | Intertrochanteric | | | | | | fracture of left | | | | | | hip, closed, initial | | | | | | encounter ([facility]); | | | | | | PAOLO on CPAP; Status | | | | | | post fall; Status | | | | | | 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 | | | | | | lower extremity | | | | | | ([facility]); Phantom limb | | | | | | pain ([facility]) | +--------+ + [...] Bolivar MD - 08/05/2016 1:07 PM PDT [facility] DISCHARGE SUMMARY Pt. Name/Age/: Porfirio [...] mg by mouth nightly. aka: LIPITOR Cholecalciferol 35921 units Caps Take 50,000 Units by mouth [...] information: [address] [place] [id number] PENDING RESULTS: HOSPITAL COURSE: Please refer to [...] signed by: Petey Bolivar MD, 08/05/2016 13:07 [facility] Portions of this chart may have been created with [employer]or[employer]ob voice recognition software. Occasi onal wrong-word or sound-alike substitutions may have occurred due to the inherent vanegas itations of voice recognition software. Please read the chart carefully and recognize, using context, where these substitutions have occurred documented in this encounter Discharge Instructions Instructions Maritza Devries RN - 08/05/2016Please call Dr. Tobar at [phone] for an y questions or concerns regarding [...] 0 | | | | (VITAMIN D-3) [address] | mouth Every 3 | | | [...] might be differ ent from the original. [facility] Hospitalist Progress Note Porfirio Zavala [...] Clear Clear PH UA 5.0 5.0-8.0 Specific [place] 1.015 1.001-1.030 PROTEIN UA 100 mg/dL (A) [...] as outlined above. Sonu Michel 08/04/2016 11:33 [facility] Yuriy Farrell RRT - 08/04/2016 [...] might be different f rom the original. [facility] HISTORY & PHYSICAL Patient: Porfirio Zavala : 1940: Age: 76 y.o. MedRec: [id number] PCP: Hardik Coyne MD Admission date: 08/03/2016 [...] phantom pain who was transferred here from [facility] emergency room with above presentation. Patient was accepted for transfer by Dr. Mondragon of ENT and Dr. Robison of orthopedic surgery as patient's daughter requested high level of care for plastic surgery consultation and repair of his left ear. According to estella antunez he was bending over to [employer] something up while sitting in his wheelchair [...] much distress. Workup on blood work at [facility] showed mildly elevated potassium at 5.4, [...] of patient's ear laceration in the emergency [facility]. I was asked by Dr. Robison to [...] Charlotte Zavala, her contact numbers are: (h) [phone] & (c) [phone] ALLERGIES: No Known Allergies VITAL SIGNS: Temp: [...] overall unremarkable. DIAGNOSTIC STUDIES: Recent Labs Lab 08/03/16 210 WBC 13.6* HGB 11.1* HCT 33.0* PLT 293 NEUPCT 84.7* MONPCT 6.6 No results for input(s): PROTIME, INR in the last 168 hours. No results for input(s): PTT in the last 168 hours. Recent Labs Lab 08/03/16 1826 08/03/16 2107 GLU 212 194* NA 135 139 K [...] CKTOTAL No results for input(s): PHART, PO2ART, QST8CIE, GRL3GMJ, BEART, Z2HKVDUW in the last 168 h ours. No results for input(s): SPECSOURCE, PHPOCB, HCO3, TCO2, BEART, BE, BEQA4PUP in the last 16 8 hours. Invalid input(s): DAORL1EH, VUQB6NP (dot meylab) Xray Results: No results found. I reviewed imaging done at [facility]: CXR showed no acute disease. CT [...] EKG Results (I reviewed EKGs) 1st [address] [facility]: Sinus bradycardia, rate 59 bpm, otherwi se normal EKG. 2nd at [place]: Normal sinus rhythm, rate 78 bpm, otherwise [...] on 08/12, which can be done in [place] by Dr. Muhammad who has clinic there [...] signed by: Linda Steiner DO 08/03/2016 23:57 [facility] Dot phrase reference: VSHOSP (VS in table, last 24 hours) MEYLAB (various labs to pull in) DT (date and time) LABRCNTIP[K:3,Na:3 (last 3 sets of labs using potassium and sodium as examples) HGB HCT PLT INR GLU POCGLU Na K BUN CREA, CALCIUM TROPONINI BNP DIGOXIN Portions of this chart may have been created with [employer]orMob voice recognition software. Occasi onal wrong-word or sound-alike substitutions may have occurred due to the inherent vanegas itations of voice recognition software. Please read the chart carefully and recognize, using context, where these substitutions have occurred documented in this encounter Consult Notes Adonay Robison MD - 08/04/2016 10:15 AM PDT [address] [address] CONSULTATION ADONAY ROBISON MD Patient: PORFIRIO ZAVALA Admitting: LINDA STEINER MR #: [id number] LOC: PT TYPE: Adm Date: 08/03/2016 : 1940 DATE OF CONSULTATION AND DATE OF DICTATION: 08/04/2016 IDENTIFICATION: Porfirio Zavala is a 76-year-old male who resides with his daughter in the [facility]. CHIEF COMPLAINT: Fall off wheelchair with [...] while at home, necessitating transfe r to [facility] in [place] for evaluation. He was found to have a left ear l aceration, a superficial skin tear on the left wrist and on CT scan was noted to have a no ndisplaced unicortical left hip intertrochanteric fracture. He also was found to have an e levated potassium of 5.6 and the decision was made to transfer the patient to [facility] in [place] for a more in depth evaluation and appropriate care, including re pair of the ear by ENT surgeon, Dr. Tobar. Consequently, the patient was transferred to [facility] to [facility] where indeed, Dr. Tobar came and repaired his ear laceration in the emergency room. The patient was admitted to the hospitalist [facility] and orthopedic consultation was requested. Today, [...] could be obtained with an orthopedist in [place], or he may c ertainly come back to my office for this followup as well. I will follow the patient with you as needed. ADONAY ROBISON MD Dictated by ADONAY ROBISON MD 08/04/2016 10:15:13 Transcribed on 08/04/2016 10:52:[address] art# [id number] Confirmation #: [id number] cc: HARDIK COYNE MD enAdonay sheehan MD - 08/04/2016 10:15 AM PDTConsult note dictation # [id number]. documented in this encounter ED Notes Agustin Gordon RRT - 08/03/2016 10:45 PM PDTPt States he wears 4 Lpm NC all the time at home. RA SpO2 83%. i Jose macdonald MD - 08/03/2016 8:40 PM PDTFormatting of this note might be differe nt from the original. [facility] Porfirio Zavala Emergency Department Encounter Note [address] [place] [address] PCP:Hardik Coyne MD [phone] CHIEF COMPLAINT: Chief Complaint Patient presents with Head Injury Ear Laceration ED Room: ED14/ED14 HPI Porfirio Zavala is a 76 y.o. male who presents to the Emergency Department Patient presents as a referral from [facility]. He's been accepted by Dr. tobar of ENT and Dr. Robison of orthopedic surgery. He has a usspu-zpb-xpap amputation and fell out of his wheelchair earlier today. He struck his left hip and left side of his head against the ground. His family requested he be coker sferred to this hospital for plastic surgery consultation and repair of his left ear. I acc epted call from [facility] emergency department they confirmed the story dated imaging he has a left intercurrent trochanteric hip fracture as well as a negative CT scan of the head . He was noted to be mildly hyperkalemic at [facility]. On arrival he complains of left hip pain 5 out of 10 aching localized constant sudden onset with injury. PAST MEDICAL & SURGICAL HISTORY Past Medical History Diagnosis Date PAOLO (obstructive sleep apnea) COPD (chronic obstructive pulmonary disease) ([facility]) Diabetes mellitus, type II (HCC) Constipation Epigastric [...] were reviewed along with EMS notes and shelter record s if applicable. (See chart for details) Medications and Allergy list reviewed. Nurses note and old records were reviewed The patient was seen and examined, For persistent pain he receives IV narcotic pain medication morphine [address] [facility] reviewed no skull fracture or intracranial [...] 2. Closed left hip fracture, initial encounter ([facility]) S72.002A 820.8 3. Fall, initial encounter W19.XXXA E888.9 4. Acute pain R52 338.19 5. Hyperkalemia E87.5 276.7 6. CKD (chronic kidney disease), unspecified stage N18.9 585.9 7. Intractable pain R52 780.96 Administrations This Visit albuterol 2.5 mg/3 mL nebulizer solution 5 mg Admin Date Action Dose Route Administered By 08/03/2016 Given 5 mg Nebulization Agustin Gordon, MARCO ANTONIO bacitracin topical ointment Admin Date Action Dose [...] Given 4 mg Intravenous Jose Calhoun RN prcwltu-ejjkruzmta-uiwsjoohs pertussis (ADACEL, Tdap) vaccine injection 0.5 mL [...] discharge teaching and i nstructions. lan of [place] [facility] - Brie Bauer, FIBER DRIER OPERATOR - 08/05/2016 12:55 PM PDTProblem: Patient Care [...] caprice pain who was transferred here from [facility] emergency room d/t ear laceration that [...] she will need to come back to [place] and picket [employer] pt's old wheelchair that she is le [...] they will need to come back to [place] to come t o the wheelchair seating [...] from multiple contributors. Transfers Bed-Chair, Level of [place]: contact guard assist Chair-Bed, Level of [place]: contact guard assist Dmq-Ndwcw-Idj, Assistive Device: none Impairments: strength decreased, impaired balance, pain Bed Mobility Supine to Sit, Level of [place]: independent Sit to Supine, Level of [place]: independent Wheelchair Mobility Pt able to demo safe and independent ability to self propel manual wheelchair in room and hallway. ROM B UEs and R LE grossly WFL; L LE not tested due to recent fracture. Strength B UEs and R LE grossly WFL; L LE not tested due to recent fracture. STG GOALS [place] Level: minimum assist (75% patient effort) Assistive Device: none Time to Achieve: 2 days Goal Status: met Transfer Training Goal, Activity Type: bed to chair /chair to bed [place] Level: minimum assist (75% patient effort) Assistive [...] 11:49 lan of Care - B Fernando covington Ilsa, OT - 08/05/2016 9:56 AM PDTFormatting of [...] S72.002A Closed left hip fracture, initial encounter ([facility]) W19.XXXA Fall, initial encounter R52 Acute pain E87.5 Hyperkalemia N18.9 CKD (chronic kidney disease), unspecified stage R52 Intractable pain E87.5 Acute hyperkalemia N18.3 Chronic kidney disease (CKD), stage 3 (moderate) J44.9 Chronic obstructive pulmonary disease, unspecified COPD type ([facility]) E11.65, Z79.4 Insulin dependent type 2 diabetes mellitus, uncontrolled ([facility]) S72.142A Intertrochanteric fracture of left hip, closed, initial encounter ([facility]) G47.33 PAOLO on CPAP Z91.89 Status post fall Z89.612 Status post above knee amputation of left lower extremity ([facility]) G54.7 Phantom limb pain ([facility]) Date of Onset: Past Medical History Diagnosis Date PAOLO (obstructive sleep apnea) On CPAP plus 4 L of oxygen at night COPD (chronic obstructive pulmonary disease) (HCC) Diabetes mellitus, type II (HCC) Constipation Epigastric pain Stump pain ([facility]) Renal insufficiency Obesity Iron deficiency [...] phantom pain who was transferred here from [facility] emergency room d/t ear laceration that [...] Porfirio Zavala 3 times/wk until discharge from [facility] or discharged from the hospital. Occupational [...] 08/05/2016 9:42 lan of Care - Picch i-ThorSheri RN - 08/05/2016 7:01 AM PDTProblem: Patient [...] L hip fx ad 08/03/16 Procedure: none tom/ zane team Drains/ Lines: no Braces/ Collar [...] to f/u with Jonas next Friday in [place] to have sutures mello alexus. Skin tear/wound on L elbow wrapped in gauze, some dried drainage. Plan is to work with PT today to ensure pt can transfer safely to go home with dtr, and hopefully they can get i nsurance to cover a wheelchair that fits the pt better. VSS. lan of Care - Yuriy Mccoy FIBER DRIER OPERATOR - 08/04/2016 6:45 PM PDTProblem: Patient Care [...] S72.002A Closed left hip fracture, initial encounter ([facility]) W19.XXXA Fall, initial encounter R52 Acute pain E87.5 Hyperkalemia N18.9 CKD (chronic kidney disease), unspecified stage R52 Intractable pain E87.5 Acute hyperkalemia N18.3 Chronic kidney disease (CKD), stage 3 (moderate) J44.9 Chronic obstructive pulmonary disease, unspecified COPD type ([facility]) E11.65, Z79.4 Insulin dependent type 2 diabetes mellitus, uncontrolled ([facility]) S72.142A Intertrochanteric fracture of left hip, closed, initial encounter ([facility]) G47.33 PAOLO on CPAP Z91.89 Status post fall Z89.612 Status post above knee amputation of left lower extremity ([facility]) G54.7 Phantom limb pain ([facility]) Date of Onset: Past Medical History Diagnosis Date PAOLO (obstructive sleep apnea) On CPAP plus 4 L of oxygen at night COPD (chronic obstructive pulmonary disease) ([facility]) Diabetes mellitus, type II ([facility]) Constipation Epigastric pain Stump pain ([facility]) Renal insufficiency Obesity Iron deficiency anemia Hypertension Dyslipidemia Lower extremity embolism ([facility]) Phantom pain following amputation of lower limb ([facility]) Pain of amputation stump of left lower extremity ([facility]) Past Surgical History Procedure Laterality Date Amputation Above knee amputation of Left Lower extremity No Known Allergies EVALUATION: SUBJECTIVE: History of Presenting Problem: Porfirio Zavala is a 76 y.o. male with a h istory of IDDM, HTN, COPD, CKD with history of left sided AKA 17 years ago with associated s tump pain and phantom pain who was transferred here from [facility] emergency room d/t ea r laceration [...] from multiple contributors. Transfers Bed-Chair, Level of [place]: minimum assist (75% patient effort), verbal cues required Chair-Bed, Level of [place]: minimum assist (75% patient effort), verbal cues required Pro-Wvzqc-Phw, Assistive Device: none Impairments: strength decreased, impaired balance, pain ROM B UEs and R LE grossly WFL; L LE not tested due to recent fracture. Strength B UEs and R LE grossly WFL; L LE not tested due to recent fracture. STG GOALS [place] Level: minimum assist (75% patient effort) Assistive Device: none Time to Achieve: 2 days Goal Status: new Transfer Training Goal, Activity Type: bed to chair /chair to bed [place] Level: minimum assist (75% patient effort) Assistive [...] PT eval completed. Case d/w RN and major case detective. Contacted wheelchair r ep (Petey) who says [...] tank. lan of Care - Shannan galicia, POLI Valenzuela - 08/04/2016 2:17 PM PDTProblem: Discharge Planning Goal: Patient will be discharged in a safe manner Outcome: Unchanged Patient lives in [place], [place] with his daughter Charlotte. Charlotte states [...] This CM called [facility] in [place] and gave infusion pharmacist , Argenis, the story about this patient. Argenis states that she is going to have their tech give me a call and see what they can do. Will attempt to get a standard w/c for patient. Faxed RX and clinicals to [facility]. Awaiting a call back. Also called [facility] CM for [facility] and left a voicemail asking to return my call. 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 She states that if a manual w/c canno t be obtained, she will get one Friday at [facility] and "I will just be with him at all times in the w.c he has now until I can get one on Friday". Electronically sig sindy by: Sakshi Ovalles, FILBERT GROWER 08/04/2016 14:15 Spoke with Argenis at [facility]. He will not qualify for a manual w/c as insurance alre mariella covered a power w/c. She states that a rental would be $67.00. She will call the alethea r to see if they can afford $67 for a month rental. Electronically signed by: Sakshi conte, FILBERT GROWER 08/04/2016 14:40 Daughter saying she can't afford the $67.00. Spoke with RADHA Bazan who states that Petey, whe elchair specialist who works with [facility] will be in tomorrow to assess and pay be able to a uthorize/petition for a wheelchair that he is needing. Petey asking for a face sheet to be fa xed to [phone]. Faxed face sheet. Electronically signed by: POLI [...] OT, 08/04/2016 8:41 lan of Care - [facility]-Sheri Armendariz RN - 08/04/2016 7:16 AM [...] Procedure: L hip fx (possible ORIF?) Surgeon: reinaldo Robison; Amadou sutured L ear Drains/ Lines:none Mobility: [...] be removed on 08/12 phylicia Muhammad in [place]. Pt is alert and oriented, forgetful at [...] Tobar MD - 08/03/2016 10:51 PM PDT [address] [address] OPERATIVE REPORT STEVEN TOBAR MD Patient: PORFIRIO ZAVALA Admitting: LINDA STEINER MR #: [id number] LOC: PT TYPE: Adm Date: 08/03/2016 : [...] also hurt the left hip, and in [place] the laceration was felt to be too complex to repair in the emergency room by the emergency room physician . Also, the patient with complaint of the left hip was noted to have an intertrochanteric fracture, but nondisplaced. The patient was accepted at [facility] fo r repair of the laceration and [...] the laceration, p art of it being pgkjpcn-fxo-ddaapib the root of the ear, was 5.5 [...] his could be carried out down in [place] with Dr. Muhammad to save a long trip up to this area a week from Friday when they should be removed. They can call our office and arrange ments will be made for removal of the sutures if not able to do it down in the [facility]. The estimated blood loss from the current part was around 1-2 mL. The prognosis of th is area immediate and remote is good. STEVEN TOBAR MD Dictated by STEVEN TOBAR MD 08/03/2016 22:51:04 Transcribed on 08/04/2016 05:51:45 by job# [id number] Confirmation #: [id number] cc: HARDIK COYNE MD D Triage Notes - Jose Calhoun RN - 08/03/2016 8:05 PM PDTPatient [facility] [place] [facility] and ear laceration that needs to be sutured by ENT. Patient arrives with gauze dressing in place on head and ear, and dressing on left e lbow. Patient A&O AELdocu mented in this encounter Plan of Treatment +--------+ + + + + | Date | Type | Specialty | Care Team | Description | +--------+ + + + + | 09/19/ | Office | Cardiology | BlasMarch, | | | 2019 | Visit | | RIDER TICKET WORKER [address] | | | | | | [address] [place], | | | | | | [place] [address] | | | | | | [phone] | | | | | | | | +--------+ + + + + | 09/19/ | Clinical | Cardiology | | | 2019 | Support | | | | +--------+ + + + + | 10/03/ | Office | Cardiology | Ron Orosco MD | | | 2019 | Visit | | [address] | | | | | | [place] | | | | | | [address] | | | | | | | | +--------+ + + + + | 10/30/ | Virtual | Nephrology | Farrukh Acuna MD | | | 2019 | Office | | [address] | | | | Visit | | [address] [place] [address] | | | | | | [address] | | | | | | | [...] until | | | | | encounter ([facility]) | 08/04/2016 | | | | | Status post above | | | | | | knee amputation of | | | | | | left lower extremity | | | | | | ([facility]) | | + +------+--------+ + + | DME: Walker | DME | Routin | Closed left hip | Ordered: 08/05/2016 | | | | e | fracture, initial | | | | | | encounter ([facility]) | | | | | | Status post above | | | | | | knee amputation of | | | | | | left lower extremity | | | | | | ([facility]) | | + +------+--------+ + [...] + | [facility] | [address] | [place], [place] | [phone] | | [facility] | | [address] | | | - LABORATORY | | [...] [facility] | | | | | | [facility] | | | | | | [...] mL/min/1.73m2 | [facility] | | | Marshallese | RATE,ESTIMATED | | MEDICAL | | | | mL/min/1.29m5Ulhn than | | CENTER - | | [...] [address] | [place] | [phone] | | [facility] | | [address] | | | - LABORATORY | | [...] | | Eosinophils | | K/uL | [facility] | | | | | | MEDICAL | | | | | | CENTER - | | | | | | LABORATORY | | + + + + + + | Absolute | 0.10 | 0.00 - 0.10 | [facility] | | | Basophils | | K/uL | [facility] | | | | | [...] [address] | [place] | [phone] | | [facility] | | [address] | | | - LABORATORY | | [...] + | [facility] | [address] | [place] | [phone] | | [facility] | | [address] | | | - LABORATORY | | [...] [address] | [place] | [phone] | | [facility] | | [address] | | | - LABORATORY | | [...] + | [facility] | [address] | [place] | [phone] | | [facility] | | [address] | | | - LABORATORY | | [...] | | | POC | | | [facility] | | | [...] [address] | [place] | [phone] | | [facility] | | [address] | | | - LABORATORY | | [...] ST. | [address] | [place] | [phone] | | [facility] | | [address] | | | - LABORATORY | | [...] | Time | | seconds | [facility] | | | | [...] [address] | [place] | [phone] | | [facility] | | [address] | | | - LABORATORY | | [...] [address] | [place] | [phone] | | [facility] | | [address] | | | - LABORATORY | | [...] [address] | [place] | [phone] | | [facility] | | [address] | | | - LABORATORY | | [...] 2.09 (H) | 0.60 - 1.30 | [facility] | | | | | mg/dL | [facility] | | | | | | MEDICAL | | | | | | CENTER - | | | | | | LABORATORY | | + + + + + + | eGFR, | 31 (L)Comment: | >=60 | [facility] | | | non- | GLOMERULAR FILTRATION | mL/min/1.73m2 | [facility] | | | Marshallese | RATE,ESTIMATED | | MEDICAL | | | | mL/min/1.23m3Xibx than | | CENTER - | | [...] + | [facility] | [address] | [place] | [phone] | | [facility] | | [address] | | | - LABORATORY | | [...] - 1.030 | [facility] | | | [place], | | | [facility] | | [...] + | [facility] | [address] | [place] | [phone] | | [facility] | | [address] | | | - LABORATORY | | [...] | | | | AYAH RON MD ([id number]) | | | | | | on [...] | Cells | | M/uL | [facility] | | | | [...] [address] | [place] | [phone] | | [facility] | | [address] | | | - LABORATORY | | [...] | [employer]ube | | | STLedy CINDA | | [...] [address] | [place] | [phone] | | [facility] | | [address] | | | - LABORATORY | | [...] | | Top Tube | | | CINDA | | | [...] ST. | [address] | [place], [place] | [phone] | | [facility] | | [address] | | | - LABORATORY | | [...] [address] | [place] | [phone] | | [facility] | | [address] | | | - LABORATORY | | [...] + | [facility] | [address] | [place] | [phone] | | [facility] | | [address] | | | - LABORATORY | | [...] mL/min/1.73m2 | ST. [facility]OO | | | Marshallese | RATE,ESTIMATED | | MEDICAL | | | | mL/min/1.26y2Krnz than | | CENTER - | | [...] [address] | [place] | [phone] | | [facility] | | [address] | | | - LABORATORY | | [...] Chronic obstructive pulmonary disease, unspecified COPD type ([facility]) | + + | Insulin dependent type 2 diabetes mellitus, uncontrolled ([facility]) Type II or unspecified | | [...] | | | | | | | 9930-6722 Use NIGHT DOSE for | | | | | | | doses scheduled: HS, 3AM, | | | | | | | Nighttime 7212-5139, | | | | | | + [...] | +---+---+ + +-------+ +---------+---+ + | bufgqzq-ioxxpfdcnt-utguyunlh | Given | 08/03/20 | 0.5 mLs [...]
--- OUTSIDE RECORDS SUMMARY | ~2020-09-15 | XMS | Encounter Summary ---
Demographics + + + | Address | [address] | | | [place] [address] | + + + | Home Phone [...] + + | 12/07/ | Telephone | [facility] | Farrukh Acuna MD | Other (Blood | | 2020 | | NEPHROLOGY [place] | [address] | pressure concern. ) | | | | [address] | [address] [place], [place] | | | | | [address] [place], [place] | [address] | | | | | [address] | | | | | | [phone] | | | +--------+ + + + [...] Miscellaneous Notes Telephone Encounter - Trinidad Simon Pool Hand - 12/07/2019 5:29 PM PSTPatie nts daughter [...] | | | | | | [place] [address] | | | | | | [phone] | | | | | | | [...] [place] | | | | | | [address] | | | | | | | [...]
--- OUTSIDE RECORDS SUMMARY | ~2020-09-15 | XMS | Encounter Summary ---
Demographics + + + | Address | [address] | | | [place] [address] | + + + | Home Phone [...] Team Providers + +------+ + | Care Cocoa Milling Machine Operator Name | Role | Phone | + +------+ + | Rahul Silva MD | PCP | | + +------+ + Encounter Details +--------+ + + + + | Date | Type | Department | Care Team | Description | +--------+ + + + + | 05/22/ | Orders Only | [facility] | Farrukh Acuna MD | | | 2018 | | NEPHROLOGY [place] | [address] | | | | | [address] | [address] [place], [place] | | | | | [address] [place], [place] | [address] | | | | | [address] | | | | | | [phone] | | | +--------+ + + + [...] | | | | | | [place] [address] | | | | | | [phone] | | | | | | | [...] [place] | | | | | | [address] | | | | | | | | +--------+ + + + + | 10/30/ | Virtual | Nephrology | Farrukh Acuna MD | | | 2019 | Office | | [address] | | | | Visit | | [address] [place] | | | | | | [address] | | | | | | | [...] | | | LAB | | | Bangladeshi | | | | | + + [...]
--- OUTSIDE RECORDS SUMMARY | ~2020-09-15 | XMS | Encounter Summary ---
Demographics + + + | Address | [address] | | | [place] [address] | + + + | Home Phone [...] Providers + +------+ + | Care Rn Ed Name | Role | Phone | + [...] + + | 08/25/ | Telephone | [facility] | Brian Orosco MD | New Patient (08/26 | | 2019 | | VASCULAR SURGERY | [address] | appointment) | | | | [address] | [place], [place] | | | | | [place], [place] | [address] | | | | | [address] | [phone] | | | | | [phone] | | | +--------+ + + + [...] Miscellaneous Notes Telephone Encounter - Megan Blackwell Manual Training Teacher - 08/25/2019 2:08 PM PDTConfirmed appointment for tomorrow. Electronically signed by Megan N Ross, Manual Training Teacher at 08/25 2:09 PM PDTTelephone Encounter - [...] transfer the call to a damian munoz on awake counselor was caller made aware that if at [...] | | 2019 | Visit | | HOUSE MOTHER [address] | | | | | | [address] [place], | | | | | | [place] [address] | | | | | | [phone] | | | | | | | [...] [place] | | | | | | [address] | | | | | | | | +--------+ + + + + | 10/30/ | Virtual | Nephrology | Farrukh Acuna MD | | | 2019 | Office | | [address] | | | | Visit | | [address] [place] | | | | | | [address] | | | | | | | [...]
--- OUTSIDE RECORDS SUMMARY | ~2020-09-15 | XMS | Encounter Summary ---
Demographics + + + | Address | [address] | | | [place] [address] | + + + | Home Phone [...] Providers + +------+ + | Care Shipwright Supervisor Name | Role | Phone | + +------+ + | Rahul Silva MD | PCP | | + +------+ + Encounter Details +--------+ + + + + | Date | Type | Department | Care Team | Description | +--------+ + + + + | 08/13/ | Orders Only | [facility] | Conversion | | | 2016 | | NEPHROLOGY [place] | Transaction, | | | | | [address] | Provider Unknown | | | | | [address] [place] [address] | | | | | | [address] | (Fax) | | | | | [phone] | | | +--------+ + + + [...] | | | | | | [place] [address] | | | | | | [phone] | | | | | | | [...] [place] | | | | | | [address] | | | | | | | | +--------+ + + + + | 10/30/ | Virtual | Nephrology | Farrukh Acuna MD | | | 2019 | Office | | [address] | | | | Visit | | [address] [place] | | | | | | [address] | | | | | | | [...]
--- OUTSIDE RECORDS SUMMARY | ~2020-09-15 | XMS | Encounter Summary ---
Demographics + + + | Address | [address] | | | [place] [address] | + + + | Home Phone [...] Providers + +------+ + | Care Production Control Technologist Name | Role | Phone | + +------+ + | Rahul Silva MD | PCP | | + +------+ + Encounter Details +--------+ + + + + | Date | Type | Department | Care Team | Description | +--------+ + + + + | 03/24/ | Orders Only | [facility] | Farrukh Acuan MD | | | 2017 | | NEPHROLOGY [place] | [address] | | | | | [address] | [address] [place], [place] | | | | | [address] [place] | [address] | | | | | [address] | | | | | | [phone] | | | +--------+ + + + [...] | | | | | | [place] [address] | | | | | | [phone] | | | | | | | [...] [place] | | | | | | [address] | | | | | | | | +--------+ + + + + | 10/30/ | Virtual | Nephrology | Farrukh Acuna MD | | | 2019 | Office | | [address] | | | | Visit | | [address] [place] | | | | | | [address] | | | | | | | [...]
--- OUTSIDE RECORDS SUMMARY | ~2020-09-15 | XMS | Encounter Summary ---
Demographics + + + | Address | [address] | | | [place] [address] | + + + | Home Phone [...] Providers + +------+ + | Care Electric Range Assembler Name | Role | Phone | [...] + + | 10/06/ | Telephone | [facility] | Farrukh Acuna MD | Other | | 2019 | | NEPHROLOGY [facility] | [address] | | | | | [address] | [address] [place], [place] | | | | | [address] [place] [address] | [id number] | | | | | [address] | | | | | | [phone] | | | +--------+ + + + [...] Miscellaneous Notes Telephone Encounter - Trinidad Simon Retail Sales Representative - 10/07/2019 10:15 AM PSTInfor med patients daughter of provider message. She verbalized understanding and had no further q uestions at this time. Electronically signed by Trinidad Simon Retail Sales Representative at 05/2019 10:17 AM PSTTelephone Encounter - [...] in a week.Electronically signed by Trinidad Simon Retail Sales Representative logan t 10/07/2019 10:17 AM PSTTelephone Encounter [...] take medication. Please call them back at [phone]. Detailed message may be left on phone: Yes Last OV: 10/04/19 Next OV: 12/06/19 If this is a symptom based call and you were unable to immediately transfer the call to [facility] staff, was caller made aware that if at any timeshefeels it is an emergency they shoul d call 911 or go to the nearest emergency room? N/A Is clock and watch hands dipper needed: no documented in this enc ounter [...] [place], | | | | | | [place] [address] | | | | | | [phone] | | | | | | | [...] [place] | | | | | | [address] | | | | | | | | +--------+ + + + + | 10/30/ | Virtual | Nephrology | Farrukh Acuna MD | | | 2019 | Office | | [address] | | | | Visit | | [address] [place] | | | | | | [address] | | | | | | | | +--------+ + + + + documented as of this encounter Visit Diagnoses Not on filedocumented in this encounter"
--- OUTSIDE RECORDS SUMMARY | ~2020-09-15 | XMS | Encounter Summary ---
Demographics + + + | Address | [address] | | | [place] [address] | + + + | Home Phone [...] Providers + +------+ + | Care High Speed Operator Name | Role | Phone | + +------+ + | Rahul Silva MD | PCP | | + +------+ + Encounter Details +--------+ + + + + | Date | Type | Department | Care Team | Description | +--------+ + + + + | 09/17/ | Orders Only | [facility] | Collin Mirza, | | | 2016 | | NEPHROLOGY [place] | HOT END OPERATOR [address] | | | | [address] | [address] | | | | | [address] [place], [place] | [place] | | | | | [address] | [address] | | | | | [phone] | [phone] | | | | | | | [...] | | | | | | [place] [address] | | | | | | [phone] | | | | | | | [...] [place] | | | | | | [address] | | | | | | | | +--------+ + + + + | 10/30/ | Virtual | Nephrology | Farrukh Acuna MD | | | 2019 | Office | | [address] | | | | Visit | | [address] [place] | | | | | | [address] | | | | | | | [...]
--- OUTSIDE RECORDS SUMMARY | ~2020-09-15 | XMS | Encounter Summary ---
Demographics + + + | Address | [address] | | | [place] [address] | + + + | Home Phone [...] Team Providers + +------+ + | Care Sole Sewer Hand Name | Role | Phone | + +------+ + | Rahul Silva MD | PCP | | + +------+ + Encounter Details +--------+ + + + + | Date | Type | Department | Care Team | Description | +--------+ + + + + | 03/01/ | Orders Only | [facility] | Conversion | | | 2019 | | NEPHROLOGY [place] | Transaction, | | | | | [address] | Provider Unknown | | | | | [address] [place] [address] | | | | | | [address] | (Fax) | | | | | [phone] | | | +--------+ + + + [...] | | | | | | [place] [address] | | | | | | [phone] | | | | | | | [...] [place] | | | | | | [address] | | | | | | | | +--------+ + + + + | 10/30/ | Virtual | Nephrology | Farrukh Acuna MD | | | 2019 | Office | | [address] | | | | Visit | | [address] [place] | | | | | | [address] | | | | | | | [...] - 1.030 | EXTERNAL | | | [place], | | | LAB | | | [...] + +---------+ + + External Lab: DUNIA (03/01/2019 12:55 PM PDT) + + + [...] | | | LAB | | | Singaporean | | | | | + + [...]
--- OUTSIDE RECORDS SUMMARY | ~2020-09-15 | XMS | Encounter Summary ---
Demographics + + + | Address | [address] | | | [place] [address] | + + + | Home Phone [...] Providers + +------+ + | Care Engineering Programmer Name | Role | Phone | + +------+ + | Rahul Silva MD | PCP | | + +------+ + Encounter Details +--------+ + + + + | Date | Type | Department | Care Team | Description | +--------+ + + + + | 10/27/ | Orders Only | [facility] | Conversion | | | 2016 | | NEPHROLOGY [place] | Transaction, | | | | | [address] | Provider Unknown | | | | | [address] [place] [address] | | | | | | [address] | (Fax) | | | | | [phone] | | | +--------+ + + + [...] | | | | | | [place] [address] | | | | | | [phone] | | | | | | | [...] [place] | | | | | | [address] | | | | | | | | +--------+ + + + + | 10/30/ | Virtual | Nephrology | Farrukh Acuna MD | | | 2019 | Office | | [address] | | | | Visit | | [address] [place] | | | | | | [address] | | | | | | | [...]
--- OUTSIDE RECORDS SUMMARY | ~2020-09-15 | XMS | Encounter Summary ---
Demographics + + + | Address | [address] | | | [place] [address] | + + + | Home Phone [...] Team Providers + +------+ + | Care Extractions Technologist Name | Role | Phone | + +------+ + | Mehrdad Bergman | PCP | | + +------+ + Encounter Details +--------+ + + + + | Date | Type | Department | Care Team | Description | +--------+ + + + + | 08/09/ | Virtual | [facility] | Farrukh Acuna MD | Persistent | | 2020 | Office | NEPHROLOGY [place] | [address] | proteinuria (Primary | | | Visit | [address] | [address] [place], [place] | Dx); CKD (chronic | | | | [address] | [address] | kidney disease) | | | | [place] | | stage 5, GFR less | | | | [address] | | than 15 ml/min | | | | [phone] | | ([facility]); Anemia of | | | | | | chronic kidney | | | | | | failure, stage 5 | | | | | | ([facility]); Iron | | | | [...] | | ([facility]); Secondary | | | | | | hyperparathyroidism | | | | | | ([facility]); Edema of | | | [...] 03/01/19. He was in the ED at [facility] on 08/01/20 with chest pain, non-cardiac in origin per records that I reviewed from the ED. He was in the ED at [facility] in late 05/2020 with CP & [...] 10/2016 with severe pneumonia, severe ZEKE; needed HOG SLAUGHTERER for ~5 weeks b efore renal function recovery mid 12/2016. He was admitted to [facility] for 3 nights in July 2016 [...] 10/2016 with severe pneumonia, severe ZEKE; needed HOG SLAUGHTERER for ~5 weeks b efore renal function recovery mid 12/2016. RENAL FUNCTION: Below baseline vs 2015. He had a stage 1 ZEKE (acute kidney injury) in [facility] [place] 07/2017. BLOOD PRESSURE: Reportedly better control, [...] [place]. I see no need for acute HOG SLAUGHTERER. I see no need to send him [...] or concerns. Truly yours, Farrukh Acuna MD [facility] This exam was initially conducted via a secure 256-bit AES encrypted bidirectional video se ssion. You have chosen to receive care through the use of telemedicine. Telemedicine enables [facility] care providers at different locations to provide [...] | | | | | | [place] [address] | | | | | | [phone] | | | | | | | | +--------+ + + + + | 09/19/ | Clinical | Cardiology | | | 2019 | Support | | | | +--------+ + + + + | 10/03/ | Office | Cardiology | Ron Orosco MD | 2019 | Visit | | [address] | | | | | | [place] | | | | | | [address] | | | | | | | | +--------+ + + + + | 10/30/ | Virtual | Nephrology | Farrukh Acuna MD | | | 2019 | Office | | [address] | | | | Visit | | [address] [place], [place] | | | | | | [address] | | | | | | | [...] chronic kidney failure, stage 5 ([facility]) | + + | Iron deficiency Other disorders of iron metabolism | + + | Essential hypertension Unspecified essential hypertension | + + | Type 2 diabetes mellitus with diabetic nephropathy, with long-term current use of | | insulin ([facility]) | + + | Secondary hyperparathyroidism (HCC) Secondary hyperparathyroidism (of renal origin) | + + | Edema of lower extremity Edema | + + | Vitamin D deficiency Unspecified vitamin D deficiency | + + documented in this encounter
--- OUTSIDE RECORDS SUMMARY | ~2020-09-15 | XMS | Encounter Summary ---
Demographics + + + | Address | [address] | | | [place] [address] | + + + | Home Phone [...] Providers + +------+ + | Care Dairy Farm Operator Name | Role | Phone | [...] fereme | | 2020 | | NEPHROLOGY [place] | [address] | and maria t | | | | [address] | [address] [place], [place] | question) | | | | [address] [place], [place] | [id number] | | | | | [address] | | | | | | [phone] | | | +--------+ + + + [...] Miscellaneous Notes Telephone Encounter - Trinidad Simon, Resin Shaver - 04/06/2020 3:14 PM PDTSt[address] A IV [...] | | 2019 | Visit | | PASTE UP ARTIST [address] | | | | | | [address] [place], | | | | | | [place] [address] | | | | | | [phone] | | | | | | | [...] [place] | | | | | | [address] | | | | | | | | +--------+ + + + + | 10/30/ | Virtual | Nephrology | Farrukh Acuna MD | | | 2019 | Office | | [address] | | | | Visit | | [address] [place] | | | | | | [address] | | | | | | | | +--------+ + + + + documented as of this encounter Visit Diagnoses Not on filedocumented in this encounter"
--- OUTSIDE RECORDS SUMMARY | ~2020-09-15 | XMS | Encounter Summary ---
Demographics + + + | Address | [address] | | | [place] [address] | + + + | Home Phone [...] Team Providers + +------+ + | Care Borderer Name | Role | Phone | + +------+ + | Rahul Silva MD | PCP | | + +------+ + Encounter Details +--------+ + + + + | Date | Type | Department | Care Team | Description | +--------+ + + + + | 02/12/ | Orders Only | [facility] | Conversion | | | 2018 | | NEPHROLOGY [place] | Transaction, | | | | | [address] | Provider Unknown | | | | | [address] | | | | | | [address] | (Fax) | | | | | [phone] | | | +--------+ + + + [...] | | | | | | [place] [address] | | | | | | [phone] | | | | | | | [...] [place] | | | | | | [address] | | | | | | | | +--------+ + + + + | 10/30/ | Virtual | Nephrology | Farrukh Acuna MD | | | 2019 | Office | | [address] | | | | Visit | | [address] [place] | | | | | | [address] | | | | | | | [...]
--- OUTSIDE RECORDS SUMMARY | ~2020-09-15 | XMS | Encounter Summary ---
Demographics + + + | Address | [address] | | | [place] [address] | + + + | Home Phone [...] [place] | | | | | [address] | | + + + + + Care Team Providers + +------+ + | Care Vp Organizational Development Name | Role | Phone | [...] Clinic | | | | | | [facility], [address] | | | | | | [place], [place] | | | | | | [address] | | | | | | [phone] | | | +--------+ + + + [...] as of this encounter Progress Notes Interface, Land Inspector In - 01/22/2007 3:04 AM PST CLINIC DATE: 06/07/97 NEUROLOGY CLINIC HISTORY OF PRESENT ILLNESS: Mr. Andujar is a 56 year-old male who is being evaluated in the Clinic for problems with balance and tremulousness of both upper extremities. He has been referred to this Clinic by Dr. Vallse from [place], [place], and has also previously undergone extensive evaluations in the Neurosurgical Clinic and at Vascular Surgery at [facility]. His most recent hospitalization to [facility] was December 28, 1996, when [...] evaluation in the Pain Management Clinic at [facility] and previous trials of Neurontin and mexiletine hydrochloride apparently appears to have been unsuccessful. Shortly following his December hospitalization at [facility], Mr. Andujar apparently became comatose in January from an accidental overdose of Darvon for which he was admitted to [facility] in [place], [place]. The details pertaining to this hospitalization are currently not available but as per Mr. Andujar, he was in a coma for a six day period and upon recovery noted tremulousness of both upper extremities, worse on his left than on his right. Prior to his hospitalization at [facility] and following his discharge from [facility], he apparently was ambulating with crutches since the stump pain precluded the use of his left lower extremity prosthesis. Since his discharge from [facility], however, he has been experiencing increasing problems with balance and apparently has fallen on several occasions. The head CT-scan that was done at [facility], dated February 07, 1997, reveals a low attenuation area in the left anterior basal ganglia felt to represent a small lacunar infarct, with no other significant abnormality. Mr. Andujar states that during the course of his hospitalization at [facility] he apparently fell on three occasions sustaining occipital head trauma but did not undergo subsequent brain imaging studies. His stay at [facility] lasted two weeks. By his report, he [...] Mr. Andujar specifically denies impairment of hand river tester, impaired strength in either upper extremity or [...] currently lives in a [facility] in [place], [place]. 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 He currently smokes one-half unzv-tak-kfr since age 23. Denies current alcohol use [...] led to his hospitalization at [facility] in January 1997 for coma at which [...] procedures for pain relief. Michelle Landon M.D. Straddle Bug Operator, Neurology GN:fermin C: 06/28/97 cc: RUBIA VALLES MD [address] [facility] [address] Alina Moise M.D. Professor and Human Resource Officer, Division of Neurosurgery Robert Carlson M.D. Professor, Vascular Surgery documented in this encounter Plan of Treatment Not on filedocumented as of this encounter Visit Diagnoses Not on filedocumented in this encounter"
--- OUTSIDE RECORDS SUMMARY | ~2020-09-15 | XMS | Encounter Summary ---
Demographics + + + | Address | [address] | | | [place] [address] | + + + | Home Phone [...] Providers + +------+ + | Care Heat Treating Operator Name | Role | Phone | + +------+ + | Rahul Sliva MD | PCP | | + +------+ + Encounter Details +--------+ + + + + | Date | Type | Department | Care Team | Description | +--------+ + + + + | 11/10/ | Orders Only | [facility] | Conversion | | | 2016 | | NEPHROLOGY [place] | Transaction, | | | | | [address] | Provider Unknown | | | | | [address] | | | | | | [address] | (Fax) | | | | | [phone] | | | +--------+ + + + [...] | | | | | | [place] [address] | | | | | | [phone] | | | | | | | [...] [place] | | | | | | [address] | | | | | | | | +--------+ + + + + | 10/30/ | Virtual | Nephrology | Farrukh Acuna MD | | | 2019 | Office | | [address] | | | | Visit | | [address] [place] | | | | | | [address] | | | | | | | [...]
--- OUTSIDE RECORDS SUMMARY | ~2020-09-15 | XMS | Encounter Summary ---
Demographics + + + | Address | [address] | | | [place] [address] | + + + | Home Phone [...] Providers + +------+ + | Care Electrician Apprentice Name | Role | Phone | [...] [address] | | | | | [place], [place] | [place], [place] | | | | | [address] | [address] | | | | | [phone] | [phone] | | | | | | | [...] | | | | | | [place] [address] | | | | | | [phone] | | | | | | | [...] [place] | | | | | | [address] | | | | | | | | +--------+ + + + + | 10/30/ | Virtual | Nephrology | Farrukh Acuna MD | | | 2019 | Office | | [address] | | | | Visit | | [address] [place] | | | | | | [address] | | | | | | | [...]
--- OUTSIDE RECORDS SUMMARY | ~2020-09-15 | XMS | Encounter Summary ---
Demographics + + + | Address | [address] | | | [place] [address] | + + + | Home Phone [...] Providers + +------+ + | Care Dock Coordinator Name | Role | Phone | [...] [address] | | | | | [place], [place] | [place], [place] | | | | | [address] | [address] | | | | | [phone] | [phone] | | | | | | | [...] | | | | | | [place] [address] | | | | | | [phone] | | | | | | | [...] [place] | | | | | | [address] | | | | | | | | +--------+ + + + + | 10/30/ | Virtual | Nephrology | Farrukh Acuna MD | | | 2019 | Office | | [address] | | | | Visit | | [address] [place] | | | | | | [address] | | | | | | | [...]
--- OUTSIDE RECORDS SUMMARY | ~2020-09-15 | XMS | Encounter Summary ---
Demographics + + + | Address | [address] | | | [place] [address] | + + + | Home Phone [...] Providers + +------+ + | Care Production Checker Name | Role | Phone | [...] + + | 11/12/ | Documentati | [facility] | Simon, | Results (11/10/19) | | 2019 | on | NEPHROLOGY [place] | [facility] | | | | | [address] | Furniture Mover Helper | | | | | [address] [place], [place] | | | | | | [address] | | | | | | [phone] | | | +--------+ + + + [...] | | 2019 | Visit | | DISTRIBUTION DISTRICT SUPERVISOR [address] | | | | | | [address], | | | | | | [place] [address] | | | | | | [phone] | | | | | | | [...] [place] | | | | | | [address] | | | | | | | | +--------+ + + + + | 10/30/ | Virtual | Nephrology | Farrukh Acuna MD | | | 2019 | Office | | [address] | | | | Visit | | [address] [place] | | | | | | [address] | | | | | | | [...]
--- OUTSIDE RECORDS SUMMARY | ~2020-09-15 | XMS | Encounter Summary ---
Demographics + + + | Address | [address] | | | [place] [address] | + + + | Home Phone [...] Team Providers + +------+ + | Care Boarding Machine Operator Name | Role | Phone [...] + + | 12/21/ | Documentati | [facility] | Alfred, | Other (Ramone live | | 2020 | on | NEPHROLOGY CONNIE | Charlie Abdi | order sent | | | | [address] [facility] SAURABH MARCOS | Crop Supervisor | confirmation | | | | [address] [place], [place] | | received.) | | | | [address] | | | | | | [phone] | | | +--------+ + + + [...] | | | | | | [place] [address] | | | | | | [phone] | | | | | | | [...] [place] | | | | | | [address] | | | | | | | | +--------+ + + + + | 10/30/ | Virtual | Nephrology | Farrukh Acuna MD | | | 2020 | Office | | [address] | | | | Visit | | [address] [place] | | | | | | [address] | | | | | | | | +--------+ + + + + documented as of this encounter Visit Diagnoses Not on filedocumented in this encounter"
--- OUTSIDE RECORDS SUMMARY | ~2020-09-15 | XMS | Encounter Summary ---
Demographics + + + | Address | [address] | | | [place] [address] | + + + | Home Phone [...] [place] | | | | | [address] | | + + + + + Care Team Providers + +------+ + | Care Infantry Operations Specialist Name | Role | Phone [...] [address] | | | | | | [place], [place] | | | | | | [address] | | | | | | [phone] | | | +--------+ + + + [...] this encounter Miscellaneous Notes Scan - Interface, Jacquard Lace Weaver In - 05/05/2009 11:41 AM PDT Patient [...] PROTIME 15.9 SECONDS DONE AT [facility]. DAUGHTER REPORTS PATIENT WAS SEEN AT [facility] AFTER HE FELL AND INJURED LEG AMPUTATION [...] Changes Dose THRP 05/07/93 02.29 I 2.29 [id number] 0000 0000 60.00 N 05/01/93 02.65 I 2.65 [id number] 0000 0000 60.00 N 04/26/93 02.04 I 2.04 [id number] 0000 0000 62.50 N 04/23/93 01.64 I 1.64 [id number] 0000 0000 62.50 L 04/19/93 01.57 I 1.57 [id number] 0000 0000 65.00 L Dosage Weekly Date [...]
--- OUTSIDE RECORDS SUMMARY | ~2020-09-15 | XMS | Encounter Summary ---
Demographics + + + | Address | [address] | | | [place] [address] | + + + | Home Phone [...] Providers + +------+ + | Care Sales Performance Analyst Name | Role | Phone [...] | | | 2016 | | [address] [facility] | [address] | | | | | [place], [place] | [address] [place], [place] | | | | | [address] | [address] | | | | | [phone] | | | +--------+ + + + [...] | | | | | | [place] [address] | | | | | | [phone] | | | | | | | [...] [place] | | | | | | [address] | | | | | | | | +--------+ + + + + | 10/30/ | Virtual | Nephrology | Farrukh Acuna MD | | | 2019 | Office | | [address] | | | | Visit | | [address] [place] | | | | | | [address] | | | | | | | [...]
--- OUTSIDE RECORDS SUMMARY | ~2020-09-15 | XMS | Encounter Summary ---
Demographics + + + | Address | [address] | | | [place] [address] | + + + | Home Phone [...] [place] | | | | | [address] | | + + + + + Care Team Providers + +------+ + | Care Prn Physical Therapist Name | Role | Phone | [...] as of this encounter Progress Notes Interface, Sloop Captain In - 11/10/2006 2:27 AM PSTCLINIC DATE: [...] he embarked on this. Galo Arora M.D. Cell Stripper, Plastic and Reconstructive Surgery / [id number] / [id number] / [id number] cc: Nelson Melara M.D. Anesthesiology. [facility]. [id number] signed by Interface, Sloop Captain In at 11/10/2006 2:27 AM PSTdocume nted in this encounter Plan of Treatment Not on filedocumented as of this encounter Visit Diagnoses Not on filedocumented in this encounter"
--- OUTSIDE RECORDS SUMMARY | ~2020-09-15 | XMS | Encounter Summary ---
Demographics + + + | Address | [address] | | | [place] [address] | + + + | Home Phone [...] Providers + +------+ + | Care Chemical Inspector Name | Role | Phone | [...] [address] | | | | | [place], [place] | [place], [place] | | | | | [address] | [address] | | | | | [phone] | [phone] | | | | | | | [...] | | | | | | [place] [address] | | | | | | [phone] | | | | | | | [...] [place] | | | | | | [address] | | | | | | | | +--------+ + + + + | 10/30/ | Virtual | Nephrology | Farrukh Acuna MD | | | 2019 | Office | | [address] | | | | Visit | | [address] [place] | | | | | | [address] | | | | | | | [...]
--- OUTSIDE RECORDS SUMMARY | ~2020-09-15 | XMS | Encounter Summary ---
Demographics + + + | Address | [address] | | | [place] [address] | + + + | Home Phone [...] [place] | | | | | [address] | | + + + + + Care Team Providers + +------+ + | Care Bisque Brusher Name | Role | Phone | + +------+ + PCP | Unavailable | + +------+ + Encounter Details +--------+ + + + + | Date | Type | Department | Care Team | Description | +--------+ + + + + | 12/28/ | Procedure - | [facility] | Record, Operation | Operative Report | | 1996 | | Center at [facility] [address] | | | | | Transcribed | [facility] | | | | | | for Health and | | | | | | Healing, [address] | | | | | | [place], [place] | | | | | | [address] | | | | | | [phone] | | | +--------+ + + + [...] 12/28/1996 12:00 AM PSTAssociated Order(s): OPERATION RECORD [place] [address], [place] [address] [facility] OPERATION RECORD Med Rec No.: [id number] Date: 12/28/96 Name: Kavon Andujar ATTENDING SURGEON: Robert Carlson M.D. Professor, Vascular alodize machine helper(S): Nick Noriega M.D. Snow Blower, General Surgery POSTOPERATIVE DIAGNOSIS(ES): Left stump osteophyte. OPERATION(S) PERFORMED: Revision of left vcvri-eqv-ztnd amputation and excision of stump osteophyte. SPECIMEN(S) REMOVED: 1. Swab of pseudocapsule for culture. 2. Osteophyte to Pathology. ANESTHESIA: General endotracheal anesthesia. 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 He has developed pain over the stump. A recent CT scan showed an osteophyte growing on the end of the stump. PROCEDURE: The patient was taken to the Operating Room. General endotracheal anesthesia was performed by Anesthesia. The left ulhcr-dhy-bsjd amputation stump was sterilely prepped and draped [...] Unit in stable condition. Nick Noriega M.D. Snow Blower, General Surgery Robert Carlson M.D. Professor, Vascular [...] | + + | 12/28/1996 12:00 AM [facility] | | [facility] | | [address] [place], [place] [address] | | [facility] | | | | OPERATION RECORD | | | | [facility] Rec No.: [id number] Date: 12/28/96 | | | | Name: Kavon Andujar | | | | | | ATTENDING SURGEON: Robert Carlson M.D. | | Professor, | | Vascular Surgery | | | | CLOUD ARCHITECT(S): Nick Noriega M.D. | | Snow Blower, General Surgery | | | | POSTOPERATIVE DIAGNOSIS(ES): Left stump osteophyte. | | | | OPERATION(S) PERFORMED: Revision of left woblf-nrr-abui amputation | | and excision of stump osteophyte. | | | | SPECIMEN(S) REMOVED: 1. Swab of pseudocapsule for culture. | | 2. Osteophyte to Pathology. | | | | ANESTHESIA: General endotracheal anesthesia. | | | | INDICATIONS: The patient is a 56-year-old white male who | | is status post left hoxgv-beu-gbro | | amputation three years ago secondary | | to embolus. He has developed pain over the stump. A recent CT scan showed | | an osteophyte growing on the end of the stump. | | | | PROCEDURE: The patient was taken to the Operating Room. | | General endotracheal anesthesia was | | performed by Anesthesia. The | | left ialxc-xmd-orkg amputation stump was sterilely prepped and draped [...] | | Nick Noriega M.D. | | Snow Blower, General Surgery | | Robert Carlson M.D. | | Professor, | | Vascular Surgery | | | | DOMINIC/jc | | | | A | | | | cc: | | | + + documented in this encounter Visit Diagnoses Not on filedocumented in this encounter"
--- OUTSIDE RECORDS SUMMARY | ~2020-09-15 | XMS | Encounter Summary ---
Demographics + + + | Address | [address] | | | [place] [address] | + + + | Home Phone [...] Providers + +------+ + | Care Asbestos Pipe Supervisor Name | Role | Phone | [...] + + | 05/18/ | Telephone | [facility] | Marilia Sandy | Other (ER report | | 2020 | | NEPRHOLOGY PAIGE | Rory RN | reviewed from | | | | [address] | | Sheila GILLIS | | | | [address] [place], [place] | | 05/16/20/No changes) | | | | [address] | | | | | | [phone] | | | +--------+ + + + [...] PM PDTDr Acuna reviewed ER report from [facility] from [facility] 05/16/2020. Per Dr Acuna, [...] he has been in and out of [facility] pt and has had lot of labs drawn. He is do for his 2 Week BMP and CBC. Can you please contact [facility] to get these 2 test result for [place] to review Please call them back at [phone]. Detailed message may be left on phone: Yes Last OV: 03/27/2020 Next OV: 06/05/2020 If this is a symptom based call and you were unable to immediately transfer the call to [facility] staff, was caller made aware that if at any timehefeels it is an emergency they should call 911 or go to the nearest emergency room? N/A Is spanish medical interpreter needed: no documented in this encounter Plan [...] | | | | | | [place] [address] | | | | | | [phone] | | | | | | | [...] [place] | | | | | | [address] | | | | | | | | +--------+ + + + + documented as of this encounter Visit Diagnoses Not on filedocumented in this encounter"
--- OUTSIDE RECORDS SUMMARY | ~2020-09-15 | XMS | Encounter Summary ---
Demographics + + + | Address | [address] | | | [place] [address] | + + + | Home Phone [...] Team Providers + +------+ + | Care Clamp Operator Name | Role | Phone [...] [address] | | | | | [place], [place] | [place], [place] | | | | | [address] | [address] | | | | | [phone] | | | | | | | [...] | | | | | | [place] [address] | | | | | | [phone] | | | | | | | [...] [place] | | | | | | [address] | | | | | | | | +--------+ + + + + | 10/30/ | Virtual | Nephrology | Farrukh Acuna MD | | | 2019 | Office | | [address] | | | | Visit | | [address] [place] | | | | | | [address] | | | | | | | [...]
[~2020-09-15 20:28] MED LIST changes: +ISOSORBIDE MONO30 MG PO
--- OUTSIDE RECORDS SUMMARY | 2020-09-15 20:30 | XMS ---
PreManage Notification: PORFIRIO ZAVALA Security Benefits Consulting Analyst Events No recent Security Events currently on file CRITERIA MET - 6 ED Visits in 6 Months - [facility] - Has Care Guidelines - History of Sepsis Dx - PDMP - [facility] - 2 Visits in 30 Days CARE PROVIDERS JESSENIA GOSS [facility] 05/09/2020-Current [facility]: [phone] [facility] HARDIK Van PHONE: [phone] Alina Clark Staff Radiographer/Customer Advocacy Manager 08/31/2018-Current PHONE: [phone] [facility] has no Care Guidelines for this patient. Care History Medical/Surgical 08/16/2020 [facility] - [facility] CONTACTED PCP OFFICE- DISCUSSED ONGOING ED VISIT CONCERNS- - PATIENT WAS LAST SEEN BY PCP ON 08/11/2020, CANCELLED APT ON 08/14/2020 AND HAS A FOLLOW UP APT ON 08/24/2020. - [facility]PUL[facility]ARY REH[facility] AT [facility] NOTIFIED OF ED VISIT 08/15/2020. 05/17/2020 [facility] Called PCP office to verify respiratory medication regimine. Patient has been prescribed DANA\T\#39;s in MDI and nebulizor form and triple therapy for mantanence inhaled medication. Patient\T\#39;s pharmacy history indicates that he is filling his inhaled medications. Will call patient\T\#39;s hourly caregiver to offer inhaler training. 11/10/2019 [facility] - PLEASE MAKE SURE- ALL RECORDS ARE SENT TO DR BARTON-PATIENT POULTRY PATHOLOGIST IN [place]. E.Edin VISIT COUNT (12 MO.) 1 [facility] 15 [facility]. TOTAL 16 NOTE: Visits indicate total known visits. ED/C VISIT TRACKING (12 MO.) 09/15/2020 20:28 [facility] TYPE: Emergency COMPLAINT: - SOB 09/11/2020 19:18 [facility] TYPE: Emergency COMPLAINT: - CHEST PAIN DIAGNOSES: - Chest pain, unspecified - Personal history of transient ischemic attack (TIA), and cere - Hypertensive heart and chronic kidney disease with heart fail - tank terminal gauger (current) use of insulin - Type 2 diabetes mellitus with diabetic chronic kidney disease - Personal history of nicotine dependence - Other rn long term care (current) drug therapy - Allergy status to other drugs, medicaments and biological sub - Chronic kidney disease, stage 4 (severe) - Gastrointestinal hemorrhage, unspecified - tank terminal gauger (current) use of aspirin - Chronic obstructive pulmonary disease, unspecified 08/24/2020 22:50 [facility] TYPE: Emergency DIAGNOSES: - End stage renal [...] sub - Nicotine dependence, unspecified, uncomplicated - correction (current) use of aspirin - Other prison (current) drug therapy - End stage renal disease - Heart failure, unspecified - correction (current) use of insulin - Type 2 [...] DIAGNOSES: - Chronic kidney disease, unspecified - tank terminal gauger (current) use of insulin - Allergy status to other drugs, medicaments and biological sub - Chronic kidney disease, stage 4 (severe) - Nicotine dependence, unspecified, uncomplicated - Dyspnea, unspecified - Hypertensive heart and chronic kidney disease with heart fail - Chronic obstructive pulmonary disease, unspecified - Shortness of breath - Other rn long term care (current) drug therapy - Type 2 diabetes mellitus with diabetic chronic kidney disease - correction (current) use of aspirin - Heart failure, unspecified - Personal history of transient ischemic attack (TIA), and cere 08/01/2020 23:03 [facility] [place] TYPE: Emergency COMPLAINT: - CHEST PAIN DIAGNOSES: - Dependence on renal dialysis - tank terminal gauger (current) use of insulin - Chest pain, unspecified - Chronic kidney disease, stage 4 (severe) - Heart failure, unspecified - Hypertensive heart and chronic kidney disease with heart fail - Nicotine dependence, unspecified, uncomplicated - Other prison (current) drug therapy - Type 2 diabetes mellitus with diabetic chronic kidney disease - Chronic obstructive pulmonary disease, unspecified 06/08/2020 06:43 [facility] [place] TYPE: Emergency COMPLAINT: - WEAKNESS, ABD PAIN DIAGNOSES: - Type 2 diabetes mellitus with diabetic chronic kidney disease - Other rn long term care (current) drug therapy - tank terminal gauger (current) use of insulin - Allergy status [...] Chronic obstructive pulmonary disease, unspecified - Other rn long term care (current) drug therapy - Allergy status to other drugs, medicaments and biological sub - tank terminal gauger (current) use of insulin - Chest pain, unspecified - Personal history of nicotine dependence - Chronic kidney disease, stage 4 (severe) - Type 2 diabetes mellitus with diabetic chronic kidney disease - Heart failure, unspecified - Hypertensive heart and chronic kidney disease with heart fail 05/11/2020 17:15 [facility] [place] TYPE: Emergency COMPLAINT: - SOB, WEAK, HIGH PULSE RATE DIAGNOSES: - correction (current) use of insulin - Heart failure, unspecified - tank terminal gauger (current) use of aspirin - Allergy status to other drugs, medicaments and biological sub - Weakness - Chronic kidney disease, stage 4 (severe) - Hypertensive heart and chronic kidney disease with heart fail - Chronic obstructive pulmonary disease, unspecified - Nicotine dependence, unspecified, uncomplicated - Other rn long term care (current) drug therapy - Type 2 diabetes [...] - Nicotine dependence, unspecified, uncomplicated - Other rn long term care (current) drug therapy - Chest pain, unspecified [...] with diabetic chronic kidney disease - Other rn long term care (current) drug therapy - Chronic obstructive pulmonary disease, unspecified - Personal history of nicotine dependence 11/04/2019 13:11 [facility] [place] TYPE: Emergency COMPLAINT: - MEMORY PROBLEM DIAGNOSES: - Heart failure, unspecified - Allergy status to other drugs, medicaments and biological sub - Anemia in chronic kidney disease - Other rn long term care (current) drug therapy - Personal history of nicotine dependence - Hypertensive heart and chronic kidney disease with heart fail - Chronic kidney disease, stage 4 (severe) - correction (current) use of insulin - Acute kidney failure, unspecified - Dependence on other enabling machines and devices - Vascular dementia without behavioral disturbance - correction (current) use of anticoagulants - correction (current) use of aspirin - Type 2 [...] nicotine dependence - Chest pain, unspecified - tank terminal gauger (current) use of aspirin - Personal history of transient ischemic attack (TIA), and cere - correction (current) use of insulin - Hypomagnesemia - Hypertensive heart and chronic kidney disease with heart fail - Chronic kidney disease, stage 4 (severe) - Other rn long term care (current) drug therapy 09/27/2019 12:22 [facility] TYPE: Emergency COMPLAINT: - SOB INPATIENT VISIT TRACKING (12 MO.) 09/12/2020 01:22 [facility] [place] TYPE: Intensive Care DIAGNOSES: - Acute respiratory failure with hypoxia - Gastrointestinal hemorrhage, unspecified - Dependence on renal dialysis - Anemia, unspecified - Acute on chronic systolic (congestive) heart failure - End stage renal disease - Chronic kidney disease, stage 5 - Acute ischemic heart disease, unspecified - Non-ST elevation (NSTEMI) myocardial infarction 08/24/2020 22:50 [facility] TYPE: Internal Medicine DIAGNOSES: - End stage [...] mellitus with diabetic chronic kidney disease - correction (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 of antithrombotics/antiplatelets - Acidosis - Acute respiratory failure with hypoxia - Allergy status to other drugs, medicaments and biological sub - Chronic obstructive pulmonary disease, unspecified - Acquired absence of left leg below knee - Acute and chronic respiratory failure with hypoxia - Opioid dependence, uncomplicated - Contact with and (suspected) exposure to other viral communic - Other prison (current) drug therapy - correction (current) use of aspirin - Hypertensive heart and chronic kidney disease with heart fail - Type 2 diabetes mellitus with diabetic chronic kidney disease - Anemia in chronic kidney disease - Obstructive sleep apnea (adult) (pediatric) - Chronic obstructive pulmonary disease, unspecified - Other prison (current) drug therapy - Nicotine dependence, cigarettes, uncomplicated - tank terminal gauger (current) use of insulin - Allergy status to other drugs, medicaments and biological sub - Dependence on wheelchair - correction (current) use of aspirin - Hyperkalemia - Anemia in chronic kidney disease - tank terminal gauger (current) use of insulin - Acute systolic (congestive) heart failure - Anxiety disorder, unspecified - Opioid dependence, uncomplicated - Acute systolic (congestive) heart failure - tank terminal gauger (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 of antithrombotics/antiplatelets - Nicotine dependence, [...] effect of other opioids, initial encounter - correction (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 of antithrombotics/antiplatelets - Anemia in chronic kidney disease - Acquired absence of left leg above knee - 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 classified elsewh - Nicotine dependence, unspecified, uncomplicated - Panlobular emphysema - Panlobular emphysema - Type 2 diabetes mellitus with diabetic chronic kidney disease - correction (current) use of insulin - Allergy status to other drugs, medicaments and biological sub - Opioid dependence, uncomplicated - Other prison (current) drug therapy - Nicotine dependence, unspecified, uncomplicated - Pneumonia due to Streptococcus pneumoniae - Chronic pain syndrome - Dependence on wheelchair - correction (current) use of insulin - Acquired absence [...] Hyperlipidemia, unspecified - Drug induced constipation - tank terminal gauger (current) use of aspirin - Anemia in chronic kidney disease - 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
--- NOTE | 2020-09-16 15:19 | EKG ---
[facility] [address] [facility] [place] [address] Signed Sinus rhythm with premature atrial complexes Low voltage QRS Cannot rule out Inferior infarct , age undetermined T wave abnormality, consider anterolateral ischemia Prolonged QT Abnormal ECG When compared with ECG of 11-SEP-2020 22:45, Nonspecific T wave abnormality now evident in Inferior leads Inverted T waves have replaced nonspecific T wave abnormality in Lateral leads QT has lengthened Confirmed by BROOKE FERNÁNDEZ DO ([id number]) on 09/16/2020 11:03:09 AM Electronically Signed By: BROOKE FERNÁNDEZ DO 09/16/20 1519 PATIENT NAME: PORFIRIO ZAVALA Electrocardiogram DATE OF : 40 PHYSICIAN: BROOKE FERNÁNDEZ DO REPORT #: [id number] REPORT IS CONFIDENTIAL AND NOT TO BE RELEASED WITHOUT AUTHORIZATION
== END 2020-09-16 00:45 | disposition short-term general hospital (02) ==
LOC: ED 20:28
DX: I13.0 Hypertensive heart and chronic kidney disease with heart failure and stage 1 through stage 4 chronic kidney disease, or unspecified chronic kidney disease (principal); I50.9 Heart failure, unspecified; E11.22 Type 2 diabetes mellitus with diabetic chronic kidney disease; N18.4 Chronic kidney disease, stage 4 (severe); R41.82 Altered mental status, unspecified; D64.9 Anemia, unspecified; L76.32 Postprocedural hematoma of skin and subcutaneous tissue following other procedure; J44.9 Chronic obstructive pulmonary disease, unspecified; Z86.73 Personal history of transient ischemic attack (TIA), and cerebral infarction without residual deficits; Z87.891 Personal history of nicotine dependence; Z88.8 Allergy status to other drugs, medicaments and biological substances; Z79.899 Other long term (current) drug therapy; Z79.4 Long term (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 of insulin; Z79.82 Long term (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 of aspirin
CPT/HCPCS: 36430; 36600; 70450; 71045; 80053; 82803; 83880; 84484; 85025; 93005; 93010; 96374; 96375; 99285-25; J1170; J2310; J2405

== ENCOUNTER 2020-11-06 11:28 | Emergency (ER) | payer MEDICARE, OTHER ==
[~2020-11-06] VITALS: Ht 172.7 cm; Wt 77.1 kg
--- OUTSIDE RECORDS SUMMARY | 2020-11-06 11:30 | XMS ---
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 Care History Medical/Surgical 08/16/2020 [facility] - [facility]W CONTACTED PCP OFFICE- DISCUSSED ONGOING ED VISIT CONCERNS- - PATIENT WAS LAST SEEN BY PCP ON 08/11/2020, CANCELLED APT ON 08/14/2020 AND HAS A FOLLOW UP APT ON 08/24/2020. - [facility]-CARDIAC REHAB AND [facility]PULMONARY REHAB AT [facility] NOTIFIED OF ED VISIT 08/15/2020. 05/17/2020 [facility] Called PCP office to verify respiratory medication regimine. Patient has been prescribed DANA\T\#39;s in MDI and nebulizor form and triple therapy for mantanence inhaled medication. Patient\T\#39;s pharmacy history indicates that he is filling his inhaled medications. Will call patient\T\#39;s manager care to offer inhaler training. 11/10/2019 [facility] - PLEASE MAKE SURE- ALL RECORDS ARE SENT TO DR BARTON[place]IENT H[place] REPA[place] VISIT COUNT (12 MO.) 1 [facility] 14 [facility]. TOTAL 15 NOTE: Visits indicate total known visits. ED/C VISIT TRACKING (12 MO.) 11/06/2020 11:28 [facility] TYPE: Emergency COMPLAINT: - SPITTING UP BLOOD 09/30/2020 16:27 [facility] TYPE: Emergency COMPLAINT: - LEFT LEG PAIN DIAGNOSES: - Allergy status to other drugs, medicaments and biological substances - Chronic obstructive pulmonary disease, unspecified - Type 2 diabetes mellitus with diabetic chronic kidney disease - middle or intermediate school principal (current) use of insulin - Personal history of nicotine dependence - Heart failure, unspecified - Chronic kidney disease, stage 4 (severe) - Hypertensive heart and chronic kidney disease with heart failure and stage 1 through stage 4 chronic kidney disease, or unspecified chronic kidney disease - Other penitentiary (current) drug therapy - middle or intermediate school principal (current) use of aspirin - Right lower quadrant pain - Postprocedural hematoma of a circulatory system organ or structure following a cardiac catheterization - Personal history of transient ischemic attack (TIA), and cerebral infarction without residual deficits 09/15/2020 20:28 [facility] TYPE: Emergency COMPLAINT: - SOB DIAGNOSES: - middle or intermediate school principal (current) use of insulin - Hypertensive heart and chronic kidney disease with heart failure and stage 1 through stage 4 chronic kidney disease, or unspecified chronic kidney disease - Allergy status to other drugs, medicaments and biological substances - Heart failure, unspecified - Personal history of transient ischemic attack (TIA), and cerebral infarction without residual deficits - FDC (current) use of aspirin - Chronic obstructive pulmonary disease, unspecified - Type 2 diabetes mellitus with diabetic chronic kidney disease - Anemia, unspecified - Dyspnea, unspecified - Postprocedural hematoma of skin and subcutaneous tissue following other procedure - Other local intermodal truck driver (current) drug therapy - Personal history of nicotine dependence - Altered mental status, unspecified - Chronic kidney disease, stage 4 (severe) 09/11/2020 19:18 [facility] TYPE: Emergency COMPLAINT: - CHEST PAIN DIAGNOSES: - Chest pain, unspecified - Personal history of transient ischemic attack (TIA), and cerebral infarction without residual deficits - Hypertensive heart and chronic kidney disease with heart failure and stage 1 through stage 4 chronic kidney disease, or unspecified chronic kidney disease - middle or intermediate school principal (current) use of insulin - Type 2 diabetes mellitus with diabetic chronic kidney disease - Personal history of nicotine dependence - Other penitentiary (current) drug therapy - Allergy status to other drugs, medicaments and biological substances - Chronic kidney disease, stage 4 (severe) - Gastrointestinal hemorrhage, unspecified - FDC (current) use of aspirin - Chronic obstructive pulmonary disease, unspecified [facility]2020 [facility]:50 [facility]: Emergency DIAGNOSES: - End [...] status to other drugs, medicaments and biological substances - Nicotine dependence, unspecified, uncomplicated - FDC (current) use of aspirin - Other local intermodal truck driver (current) drug therapy - End stage renal disease - Heart failure, unspecified - middle or intermediate school principal (current) use of insulin - Type 2 diabetes mellitus with diabetic chronic kidney disease - Hypertensive heart and chronic kidney disease with heart failure and with stage 5 chronic kidney disease, or end stage renal disease - Chronic obstructive pulmonary disease, unspecified - Shortness of breath - Personal history of transient ischemic attack (TIA), and cerebral infarction without residual deficits 08/16/2020 18:30 [facility] TYPE: Emergency COMPLAINT: - DIFFICULTY BREATHING 08/15/2020 13:19 [facility] TYPE: Emergency COMPLAINT: - SOB DIAGNOSES: - Chronic kidney disease, unspecified - middle or intermediate school principal (current) use of insulin - Allergy status to other drugs, medicaments and biological substances - Chronic kidney disease, stage 4 (severe) - Nicotine dependence, unspecified, uncomplicated - Dyspnea, unspecified - Hypertensive heart and chronic kidney disease with heart failure and stage 1 through stage 4 chronic kidney disease, or unspecified chronic kidney disease - Chronic obstructive pulmonary disease, unspecified - Shortness of breath - Other penitentiary (current) drug therapy - Type 2 diabetes mellitus with diabetic chronic kidney disease - FDC (current) use of aspirin - Heart failure, unspecified - Personal history of transient ischemic attack (TIA), and cerebral infarction without residual deficits 08/01/2020 23:03 [facility] TYPE: Emergency COMPLAINT: - CHEST PAIN DIAGNOSES: - Dependence on renal dialysis - middle or intermediate school principal (current) use of insulin - Chest pain, unspecified - Chronic kidney disease, stage 4 (severe) - Heart failure, unspecified - Hypertensive heart and chronic kidney disease with heart failure and stage 1 through stage 4 chronic kidney disease, or unspecified chronic kidney disease - Nicotine dependence, unspecified, uncomplicated - Other penitentiary (current) drug therapy - Type 2 diabetes mellitus with diabetic chronic kidney disease - Chronic obstructive pulmonary disease, unspecified 06/08/2020 06:43 [facility] TYPE: Emergency COMPLAINT: - WEAKNESS, ABD PAIN DIAGNOSES: - Type 2 diabetes mellitus with diabetic chronic kidney disease - Other local intermodal truck driver (current) drug therapy - middle or intermediate school principal (current) use of insulin - Allergy status to other drugs, medicaments and biological substances - Constipation, unspecified - Heart failure, unspecified - Hypertensive heart and chronic kidney disease with heart failure and stage 1 through stage 4 chronic kidney disease, or unspecified chronic kidney disease - Weakness - Chronic kidney disease, stage 4 (severe) - Gastro-esophageal reflux disease without esophagitis - Nicotine dependence, unspecified, uncomplicated - Chronic obstructive pulmonary disease, unspecified 05/16/2020 14:42 [facility] TYPE: Emergency COMPLAINT: - CHEST PAIN DIAGNOSES: - Chronic obstructive pulmonary disease, unspecified - Other local intermodal truck driver (current) drug therapy - Allergy status to other drugs, medicaments and biological substances - middle or intermediate school principal (current) use of insulin - Chest pain, unspecified - Personal history of nicotine dependence - Chronic kidney disease, stage 4 (severe) - Type 2 diabetes mellitus with diabetic chronic kidney disease - Heart failure, unspecified - Hypertensive heart and chronic kidney disease with heart failure and stage 1 through stage 4 chronic kidney disease, or unspecified chronic kidney disease 05/11/2020 17:15 [facility] TYPE: Emergency COMPLAINT: - SOB, WEAK, HIGH PULSE RATE DIAGNOSES: - FDC (current) use of insulin - Heart failure, unspecified - FDC (current) use of aspirin - Allergy status to other drugs, medicaments and biological substances - Weakness - Chronic kidney disease, stage 4 (severe) - Hypertensive heart and chronic kidney disease with heart failure and stage 1 through stage 4 chronic kidney disease, or unspecified chronic kidney disease - Chronic obstructive pulmonary disease, unspecified - Nicotine dependence, unspecified, uncomplicated - Other local intermodal truck driver (current) drug therapy - Type 2 diabetes mellitus with hypoglycemia without coma - Type 2 diabetes mellitus with diabetic chronic kidney disease 05/08/2020 19:13 [facility] TYPE: Emergency COMPLAINT: - CHEST PAIN DIAGNOSES: - Chronic obstructive pulmonary disease, unspecified - Hypertensive heart and chronic kidney disease with heart failure and stage 1 through stage 4 chronic kidney disease, or unspecified chronic kidney disease - Type 2 diabetes mellitus with diabetic chronic kidney disease - Chronic kidney disease, stage 4 (severe) - Other chest pain - Nicotine dependence, unspecified, uncomplicated - Other penitentiary (current) drug therapy - Chest pain, unspecified - Heart failure, unspecified 02/14/2020 22:26 [facility] TYPE: Emergency COMPLAINT: - HIGH BLOOD SUGAR DIAGNOSES: - Nicotine dependence, unspecified, uncomplicated - Type 2 diabetes mellitus with hyperglycemia - Chest pain, unspecified - Chronic obstructive pulmonary disease, unspecified - Heart failure, unspecified - Hypertensive heart disease with heart failure 11/18/2019 21:[address] [facility] [place] TYPE: Emergency COMPLAINT: - CONFUSION DIAGNOSES: - Chronic kidney disease, stage 4 (severe) - Dependence on renal dialysis - Hypertensive heart and chronic kidney disease with heart failure and stage 1 through stage 4 chronic kidney disease, or unspecified chronic kidney disease - Heart failure, unspecified - Disorientation, unspecified - Type 2 diabetes mellitus with diabetic chronic kidney disease - Other penitentiary (current) drug therapy - Chronic obstructive pulmonary disease, unspecified - Personal history of nicotine dependence INPATIENT VISIT TRACKING (12 MO.) 09/16/2020 01:23 [facility] TYPE: Medical Surgical DIAGNOSES: - Anemia in chronic kidney disease - Acute posthemorrhagic anemia - Contusion of abdominal wall, initial encounter - End stage renal disease - Chronic obstructive pulmonary disease, unspecified - Essential (primary) hypertension - Dependence on renal dialysis - Acute on chronic systolic (congestive) heart failure - Peripheral vascular disease, unspecified - CHF, Intractible Inguinal pain, s/p heart cath, missed Dialysis [facility] DIAGNOSES: - Acute respiratory failure with hypoxia - Gastrointestinal hemorrhage, unspecified - Dependence on renal dialysis - Anemia, unspecified - Acute on chronic systolic (congestive) heart failure - End stage renal disease - Chronic kidney disease, stage 5 - Acute ischemic heart disease, unspecified - Non-ST elevation (NSTEMI) myocardial infarction 08/24/2020 22:50 [facility] TYPE: Internal Medicine DIAGNOSES: - End stage renal disease - Acute on chronic systolic (congestive) heart failure - Non-ST elevation (NSTEMI) myocardial infarction - Acute pulmonary edema - Fluid overload, unspecified - Other disorders of plasma-protein metabolism, not elsewhere classified - Essential (primary) hypertension - Chronic kidney disease, unspecified - Other chronic diseases of tonsils and adenoids - Malignant neoplasm of tonsil, unspecified - Other specified personal risk factors, not elsewhere classified - Other disorders of phosphorus metabolism - [...] with and (suspected) exposure to other viral communicable diseases - Chronic kidney disease, stage 4 (severe) - Acute and chronic respiratory failure with hypoxia - Type 2 diabetes mellitus with diabetic chronic kidney disease - FDC (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 of antithrombotics/antiplatelets - Acidosis - Acute respiratory failure with hypoxia - Allergy status to other drugs, medicaments and biological substances - Chronic obstructive pulmonary disease, unspecified - Acquired absence of left leg below knee - Acute and chronic respiratory failure with hypoxia - Opioid dependence, uncomplicated - Contact with and (suspected) exposure to other viral communicable diseases - Other local intermodal truck driver (current) 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 therapy - middle or intermediate school principal (current) use of aspirin - Hypertensive heart and chronic kidney disease with heart failure and stage 1 through stage 4 chronic kidney disease, or unspecified chronic kidney disease - Type 2 diabetes mellitus with diabetic chronic kidney disease - Anemia in chronic kidney disease - Obstructive sleep apnea (adult) (pediatric) - Chronic obstructive pulmonary disease, unspecified - Other penitentiary (current) drug therapy - Nicotine dependence, cigarettes, uncomplicated - middle or intermediate school principal (current) use of insulin - Allergy status to other drugs, medicaments and biological substances - Dependence on wheelchair - FDC (current) use of aspirin - Hyperkalemia - Anemia in chronic kidney disease - FDC (current) use of insulin - Acute systolic (congestive) heart failure - Anxiety disorder, unspecified - Opioid dependence, uncomplicated - Acute systolic (congestive) heart failure - FDC (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 of antithrombotics/antiplatelets - Nicotine dependence, cigarettes, uncomplicated - Hypertensive heart and chronic kidney disease with heart failure and stage 1 through stage 4 chronic kidney disease, or unspecified chronic kidney disease - Anxiety disorder, unspecified - Hyperkalemia - Acquired absence of left leg below knee - Dependence on wheelchair - Acidosis - Obstructive sleep apnea (adult) (pediatric) [email or web address]
--- NOTE | 2020-11-07 16:50 | EKG ---
[facility] [address] [place] [address] Signed Normal sinus rhythm Possible Inferior infarct , age undetermined Anterior infarct , age undetermined ST \T\ T wave abnormality, consider lateral ischemia Abnormal ECG Similar to 09/15/2020 EKG Confirmed by SAHIL GAMEZ MD ([id number]) on 11/07/2020 4:50:17 PM Electronically Signed By: SAHIL GAMEZ MD 11/07/20 1650 PATIENT NAME: ZAVALAPORFIRIO OSWALDO Electrocardiogram DATE OF : 40 PHYSICIAN: SAHIL GAMEZ MD REPORT #: [id number] REPORT IS CONFIDENTIAL AND NOT TO BE RELEASED WITHOUT AUTHORIZATION
== END 2020-11-06 16:13 | disposition home or self-care (01) ==
LOC: ED 11:28
DX: R04.2 Hemoptysis (principal); E11.9 Type 2 diabetes mellitus without complications; I11.0 Hypertensive heart disease with heart failure; I50.9 Heart failure, unspecified; J44.9 Chronic obstructive pulmonary disease, unspecified; Z88.8 Allergy status to other drugs, medicaments and biological substances; Z79.899 Other long term (current) drug therapy; Z79.4 Long term (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 of insulin; Z79.82 Long term (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 of aspirin
CPT/HCPCS: 36415; 71045; 73650; 80053; 81001; 83735; 84484; 85025; 87088; 93005; 93010; 96374; 99284-25; J2405

== ENCOUNTER 2020-12-18 23:55 | Emergency (ER) | payer MEDICARE, OTHER ==
[~2020-12-18] VITALS: Ht 172.7 cm; Wt 77.1 kg
--- OUTSIDE RECORDS SUMMARY | 2020-12-18 23:58 | XMS ---
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 Care History Medical/Surgical 08/16/2020 [facility] - CHW CONTACTED PCP OFFICE- DISCUSSED ONGOING ED VISIT CONCERNS- - PATIENT WAS LAST SEEN BY PCP ON 08/11/2020, CANCELLED APT ON 08/14/2020 AND HAS A FOLLOW UP APT ON 08/24/2020. - [facility]ARDIAC REHAB AND [facility]PULMONARY REHAB AT [facility] NOTIFIED OF ED VISIT 08/15/2020. 05/17/2020 [facility] Called PCP office to verify respiratory medication regimine. Patient has been prescribed DANA\T\#39;s in MDI and nebulizor form and triple therapy for mantanence inhaled medication. Patient\T\#39;s pharmacy history indicates that he is filling his inhaled medications. Will call patient\T\#39;s care worker to offer inhaler training. 11/10/2019 [facility] - PLEASE MAKE SURE- ALL RECORDS ARE SENT TO DR BARTON-PATIENT VELOCITY SHOOTER IN [place]. [place] VISIT COUNT (12 MO.) 1 [facility] [address] [facility]. TOTAL 15 NOTE: Visits indicate total known visits. ED/C VISIT TRACKING (12 MO.) 12/18/2020 23:56 [facility] TYPE: Emergency COMPLAINT: - HEAD PAIN,MOUTH PAIN 11/06/2020 11:28 [facility] TYPE: Emergency COMPLAINT: - SPITTING UP BLOOD DIAGNOSES: - terminal manager (current) use of aspirin - Allergy status to other drugs, medicaments and biological substances - terminal manager (current) use of insulin - Heart failure, unspecified - Other intermodal dispatcher (current) drug therapy - Chronic obstructive pulmonary disease, unspecified - Hypertensive heart disease with heart failure - Type 2 diabetes mellitus without complications - Hemoptysis 09/30/2020 16:27 [facility] TYPE: Emergency COMPLAINT: - LEFT LEG PAIN DIAGNOSES: - Allergy status to other drugs, medicaments and biological substances - Chronic obstructive pulmonary disease, unspecified - Type 2 diabetes mellitus with diabetic chronic kidney disease - alf (current) use of insulin - Personal history of nicotine dependence - Heart failure, unspecified - Chronic kidney disease, stage 4 (severe) - Hypertensive heart and chronic kidney disease with heart failure and stage 1 through stage 4 chronic kidney disease, or unspecified chronic kidney disease - Other intermodal dispatcher (current) drug therapy - alf (current) use of aspirin - Right lower quadrant pain - Postprocedural hematoma of a circulatory system organ or structure following a cardiac catheterization - Personal history of transient ischemic attack (TIA), and cerebral infarction without residual deficits 09/15/2020 20:28 [facility] TYPE: Emergency COMPLAINT: - SOB DIAGNOSES: - terminal manager (current) use of insulin - Hypertensive heart and chronic kidney disease with heart failure and stage 1 through stage 4 chronic kidney disease, or unspecified chronic kidney disease - Allergy status to other drugs, medicaments and biological substances - Heart failure, unspecified - Personal history of transient ischemic attack (TIA), and cerebral infarction without residual deficits - terminal manager (current) use of aspirin - Chronic obstructive pulmonary disease, unspecified - Type 2 diabetes mellitus with diabetic chronic kidney disease - Anemia, unspecified - Dyspnea, unspecified - Postprocedural hematoma of skin and subcutaneous tissue following other procedure - Other intermodal dispatcher (current) drug therapy - Personal history of nicotine dependence - Altered mental status, unspecified - Chronic kidney disease, stage 4 (severe) 09/11/2020 19:18 [facility] TYPE: Emergency COMPLAINT: - CHEST PAIN DIAGNOSES: - Chest pain, unspecified - Personal history of transient ischemic attack (TIA), and cerebral infarction without residual deficits - Hypertensive heart and chronic kidney disease with heart failure and stage 1 through stage 4 chronic kidney disease, or unspecified chronic kidney disease - alf (current) use of insulin - Type 2 diabetes mellitus with diabetic chronic kidney disease - Personal history of nicotine dependence - Other retirement (current) drug therapy - Allergy status to other drugs, medicaments and biological substances - Chronic kidney disease, stage 4 (severe) - Gastrointestinal hemorrhage, unspecified - terminal manager (current) use of aspirin - Chronic obstructive pulmonary disease, unspecified 08/24/2020 22:50 [facility] TYPE: Emergency DIAGNOSES: - End stage renal disease - Shortness of Breath - Non-ST elevation (NSTEMI) myocardial infarction - Dependence on renal dialysis - Fluid overload, unspecified - Other specified abnormal findings of blood chemistry - Heart failure, unspecified - Chronic kidney disease, unspecified - Anemia in chronic kidney disease 08/24/2020 19:05 [facility] TYPE: Emergency COMPLAINT: - WEAKNESS DIAGNOSES: - Allergy status to other drugs, medicaments and biological substances - Nicotine dependence, unspecified, uncomplicated - terminal manager (current) use of aspirin - Other intermodal dispatcher (current) drug therapy - End stage renal disease - Heart failure, unspecified - terminal manager (current) use of insulin - Type 2 [...] DIAGNOSES: - Chronic kidney disease, unspecified - terminal manager (current) use of insulin - [...] unspecified - Shortness of breath - Other retirement (current) drug therapy - Type 2 diabetes mellitus with diabetic chronic kidney disease - terminal manager (current) use of aspirin - Heart failure, unspecified - Personal history of transient ischemic attack (TIA), and cerebral infarction without residual deficits 08/01/2020 23:03 [facility] TYPE: Emergency COMPLAINT: - CHEST PAIN DIAGNOSES: - Dependence on renal dialysis - alf (current) use of insulin - Chest pain, unspecified - Chronic kidney disease, stage 4 (severe) - Heart failure, unspecified - Hypertensive heart and chronic kidney disease with heart failure and stage 1 through stage 4 chronic kidney disease, or unspecified chronic kidney disease - Nicotine dependence, unspecified, uncomplicated - Other retirement (current) drug therapy - Type 2 diabetes mellitus with diabetic chronic kidney disease - Chronic obstructive pulmonary disease, unspecified 06/08/2020 06:43 [facility] TYPE: Emergency COMPLAINT: - WEAKNESS, ABD PAIN DIAGNOSES: - Type 2 diabetes mellitus with diabetic chronic kidney disease - Other intermodal dispatcher (current) drug therapy - alf (current) use of insulin - Allergy status [...] Chronic obstructive pulmonary disease, unspecified 05/16/2020 14:42 [facility] TYPE: Emergency COMPLAINT: - CHEST PAIN DIAGNOSES: - Chronic obstructive pulmonary disease, unspecified - Other retirement (current) drug therapy - Allergy status to other drugs, medicaments and biological substances - terminal manager (current) use of insulin - Chest pain, [...] WEAK, HIGH PULSE RATE DIAGNOSES: - terminal manager (current) use of insulin - Heart failure, unspecified - terminal manager (current) use of aspirin - Allergy status to other drugs, medicaments and biological substances - Weakness - Chronic kidney disease, stage 4 (severe) - Hypertensive heart and chronic kidney disease with heart failure and stage 1 through stage 4 chronic kidney disease, or unspecified chronic kidney disease - Chronic obstructive pulmonary disease, unspecified - Nicotine dependence, unspecified, uncomplicated - Other intermodal dispatcher (current) drug therapy - Type 2 diabetes [...] Nicotine dependence, unspecified, uncomplicated - Other intermodal dispatcher (current) drug therapy - Chest pain, unspecified - Heart failure, unspecified 02/14/2020 22:26 [facility] TYPE: Emergency COMPLAINT: - HIGH BLOOD SUGAR DIAGNOSES: - Nicotine dependence, unspecified, uncomplicated - Type 2 diabetes mellitus with hyperglycemia - Chest pain, unspecified - Chronic obstructive pulmonary disease, unspecified - Heart failure, unspecified - Hypertensive heart disease with heart failure INPATIENT VISIT TRACKING (12 MO.) 09/16/2020 [facility] DIAGNOSES: - Anemia [...] s/p heart cath, missed Dialysis 09/12/2020 01:22 [facility] DIAGNOSES: - Acute respiratory failure with hypoxia - Gastrointestinal hemorrhage, unspecified - Dependence on renal dialysis - Anemia, unspecified - Acute on chronic systolic (congestive) heart failure - End stage renal disease - Chronic kidney disease, stage 5 - Acute ischemic heart disease, unspecified - Non-ST elevation (NSTEMI) myocardial infarction 08/24/2020 22:50 [facility] TYPE: Internal Medicine DIAGNOSES: - End stage [...] mellitus with diabetic chronic kidney disease - alf (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 of antithrombotics/antiplatelets - Acidosis - Acute respiratory failure with hypoxia - Allergy status to other drugs, medicaments and biological substances - Chronic obstructive pulmonary disease, unspecified - Acquired absence of left leg below knee - Acute and chronic respiratory failure with hypoxia - Opioid dependence, uncomplicated - Contact with and (suspected) exposure to other viral communicable diseases - Other intermodal dispatcher (current) drug therapy - alf (current) use of aspirin - Hypertensive heart and chronic kidney disease with heart failure and stage 1 through stage 4 chronic kidney disease, or unspecified chronic kidney disease - Type 2 diabetes mellitus with diabetic chronic kidney disease - Anemia in chronic kidney disease - Obstructive sleep apnea (adult) (pediatric) - Chronic obstructive pulmonary disease, unspecified - Other retirement (current) drug therapy - Nicotine dependence, cigarettes, uncomplicated - alf (current) use of insulin - Allergy status to other drugs, medicaments and biological substances - Dependence on wheelchair - alf (current) use of aspirin - Hyperkalemia - Anemia in chronic kidney disease - terminal manager (current) use of insulin - Acute systolic (congestive) heart failure - Anxiety disorder, unspecified - Opioid dependence, uncomplicated - Acute systolic (congestive) heart failure - alf (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 of antithrombotics/antiplatelets - Nicotine dependence, cigarettes, uncomplicated - Hypertensive heart and chronic kidney disease with heart failure and stage 1 through stage 4 chronic kidney disease, or unspecified chronic kidney disease - Anxiety disorder, unspecified - Hyperkalemia - Acquired absence of left leg below knee - Dependence on wheelchair - Acidosis - Obstructive sleep apnea (adult) (pediatric) [email or web address]
[2020-12-19] MEDS ORDERED: AMOXICILLI250 MG/5 M PO (00:18)
[2020-12-19] MEDS ORDERED: AUGMENTIN 875-1 EACH PO (02:04)
--- NOTE | 2020-12-19 07:30 | EKG ---
[facility] [address] [facility] [address] [place] [address] Signed Normal sinus rhythm Possible Anterior infarct (cited on or before 11-SEP-2020) Abnormal ECG When compared with ECG of 06-NOV-2020 12:42, Borderline criteria for Inferior infarct are no longer present T wave inversion no longer evident in Anterolateral leads Confirmed by DARSHAN LEAL MD ([id number]) on 12/19/2020 7:30:33 AM Electronically Signed By: DARSHAN LEAL MD 12/19/20 0730 PATIENT NAME: PORFIRIO ZAVALA Electrocardiogram DATE OF : 40 PHYSICIAN: DARSHAN LEAL MD REPORT #: [id number] REPORT IS CONFIDENTIAL AND NOT TO BE RELEASED WITHOUT AUTHORIZATION
== END 2020-12-19 02:24 | disposition home or self-care (01) ==
LOC: ED 23:55
DX: J01.90 Acute sinusitis, unspecified (principal); N18.4 Chronic kidney disease, stage 4 (severe); E11.22 Type 2 diabetes mellitus with diabetic chronic kidney disease; I13.0 Hypertensive heart and chronic kidney disease with heart failure and stage 1 through stage 4 chronic kidney disease, or unspecified chronic kidney disease; I50.9 Heart failure, unspecified; J44.9 Chronic obstructive pulmonary disease, unspecified; Z86.73 Personal history of transient ischemic attack (TIA), and cerebral infarction without residual deficits; Z87.891 Personal history of nicotine dependence; Z88.8 Allergy status to other drugs, medicaments and biological substances; Z79.899 Other long term (current) drug therapy; Z79.4 Long term (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 of insulin; Z79.82 Long term (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 of aspirin
CPT/HCPCS: 70450; 71045; 80053; 81001; 85025; 93005; 93010; 99284-25

== ENCOUNTER 2020-12-31 14:50 | Emergency (ER) | payer MEDICARE, OTHER ==
[~2020-12-31] VITALS: Ht 172.7 cm; Wt 77.1 kg
[~2020-12-31 14:50] MED LIST changes: +AMOXICILLI250 MG/5 M PO; +AUGMENTIN 875-1 EACH PO
--- OUTSIDE RECORDS SUMMARY | 2020-12-31 14:54 | XMS ---
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 05/09/2020-Current PHONE: [phone] [facility] HARDIK Van PHONE: [phone] Alina Clark Traffic Signal Technician/Biological Science Aide 08/31/2018-Current PHONE: [phone] Agapito has no Care Guidelines for this patient. Care History Medical/Surgical 08/16/2020 [facility] - CHW CONTACTED PCP OFFICE- DISCUSSED ONGOING ED VISIT CONCERNS- - PATIENT WAS LAST SEEN BY PCP ON 08/11/2020, CANCELLED APT ON 08/14/2020 AND HAS A FOLLOW UP APT ON 08/24/2020. - [facility]CARDIAC REHAB AND [facility]UL[facility]ARY REHAB AT [facility] NOTIFIED OF ED VISIT 08/15/2020. 05/17/2020 [facility] Called PCP office to verify respiratory medication regimine. Patient has been prescribed DANA\T\#39;s in MDI and nebulizor form and triple therapy for mantanence inhaled medication. Patient\T\#39;s pharmacy history indicates that he is filling his inhaled medications. Will call patient\T\#39;s wound care specialist to offer inhaler training. 11/10/2019 [facility] - PLEASE MAKE SURE- ALL RECORDS ARE SENT TO DR BARTON-PATIENT ROOFING TILE SORTER IN [place]. E.Edin VISIT COUNT (12 MO.) 1 [facility] 15 [facility]. TOTAL 16 NOTE: Visits indicate total known visits. ED/UCC VISIT TRACKING (12 MO.) 12/31/2020 14:51 [facility] TYPE: Emergency COMPLAINT: - BLEEDING FROM MOUTH 12/18/2020 23:56 [facility] TYPE: Emergency COMPLAINT: - HEAD PAIN,MOUTH PAIN/ NON INJ DIAGNOSES: - Personal history of nicotine dependence - shelter (current) use of insulin - Heart failure, unspecified - Allergy status to other drugs, medicaments and biological substances - Chronic kidney disease, stage 4 (severe) - Personal history of transient ischemic attack (TIA), and cerebral infarction without residual deficits - shelter (current) use of aspirin - Acute sinusitis, unspecified - Hypertensive chronic kidney disease with stage 1 through stage 4 chronic kidney disease, or unspecified chronic kidney disease - Hypertensive heart and chronic kidney disease with heart failure and stage 1 through stage 4 chronic kidney disease, or unspecified chronic kidney disease - Chronic obstructive pulmonary disease, unspecified - Chronic kidney disease, unspecified - Other apple thinner (current) drug therapy - Headache, unspecified - Type 2 diabetes mellitus with diabetic chronic kidney disease 11/06/2020 11:28 [facility] TYPE: Emergency COMPLAINT: - SPITTING UP BLOOD DIAGNOSES: - road traffic controller (current) use of aspirin - Allergy status to other drugs, medicaments and biological substances - shelter (current) use of insulin - Heart failure, unspecified - Other fdc (current) drug therapy - Chronic obstructive pulmonary disease, unspecified - Hypertensive heart disease with heart failure - Type 2 diabetes mellitus without complications - Hemoptysis - Allergy status to other drugs, medicaments and biological substances 09/30/2020 16:27 [facility] TYPE: Emergency COMPLAINT: - LEFT LEG PAIN DIAGNOSES: - Allergy status to other drugs, medicaments and biological substances - Chronic obstructive pulmonary disease, unspecified - Type 2 diabetes mellitus with diabetic chronic kidney disease - shelter (current) use of insulin - Personal history of nicotine dependence - Heart failure, unspecified - Chronic kidney disease, stage 4 (severe) - Hypertensive heart and chronic kidney disease with heart failure and stage 1 through stage 4 chronic kidney disease, or unspecified chronic kidney disease - Other apple thinner (current) drug therapy - Allergy status to other drugs, medicaments and biological substances - road traffic controller (current) use of aspirin - Right lower quadrant pain - Postprocedural hematoma of a circulatory system organ or structure following a cardiac catheterization - Personal history of transient ischemic attack (TIA), and cerebral infarction without residual deficits 09/15/2020 20:28 [facility] TYPE: Emergency COMPLAINT: - SOB DIAGNOSES: - shelter (current) use of insulin - Hypertensive heart and chronic kidney disease with heart failure and stage 1 through stage 4 chronic kidney disease, or unspecified chronic kidney disease - Allergy status to other drugs, medicaments and biological substances - Heart failure, unspecified - Personal history of transient ischemic attack (TIA), and cerebral infarction without residual deficits - road traffic controller (current) use of aspirin - Chronic obstructive pulmonary disease, unspecified - Type 2 diabetes mellitus with diabetic chronic kidney disease - Anemia, unspecified - Dyspnea, unspecified - Postprocedural hematoma of skin and subcutaneous tissue following other procedure - Other apple thinner (current) drug therapy - Personal history of nicotine dependence - Altered mental status, unspecified - Allergy status to other drugs, medicaments and biological substances - Chronic kidney disease, stage 4 (severe) 09/11/2020 19:[address] [facility] [place] TYPE: Emergency COMPLAINT: - CHEST PAIN DIAGNOSES: - Chest pain, unspecified - Personal history of transient ischemic attack (TIA), and cerebral infarction without residual deficits - Hypertensive heart and chronic kidney disease with heart failure and stage 1 through stage 4 chronic kidney disease, or unspecified chronic kidney disease - shelter (current) use of insulin - Type 2 diabetes mellitus with diabetic chronic kidney disease - Personal history of nicotine dependence - Other fdc (current) drug therapy - Allergy status to other drugs, medicaments and biological substances - Chronic kidney disease, stage 4 (severe) - Gastrointestinal hemorrhage, unspecified - road traffic controller (current) use of aspirin - Allergy status to other drugs, medicaments and biological substances - Chronic obstructive pulmonary disease, unspecified 08/24/2020 22:50 [facility] TYPE: Emergency DIAGNOSES: - End stage renal [...] substances - Nicotine dependence, unspecified, uncomplicated - road traffic controller (current) use of aspirin - Other apple thinner (current) drug therapy - End stage renal disease - Heart failure, unspecified - road traffic controller (current) use of insulin - Type 2 [...] DIAGNOSES: - Chronic kidney disease, unspecified - road traffic controller (current) use of insulin - Allergy status [...] unspecified - Shortness of breath - Other fdc (current) drug therapy - Type 2 diabetes mellitus with diabetic chronic kidney disease - road traffic controller (current) use of aspirin - Heart failure, unspecified - Personal history of transient ischemic attack (TIA), and cerebral infarction without residual deficits 08/01/2020 23:03 [facility] TYPE: Emergency COMPLAINT: - CHEST PAIN DIAGNOSES: - Dependence on renal dialysis - shelter (current) use of insulin - Chest pain, unspecified - Chronic kidney disease, stage 4 (severe) - Heart failure, unspecified - Hypertensive heart and chronic kidney disease with heart failure and stage 1 through stage 4 chronic kidney disease, or unspecified chronic kidney disease - Nicotine dependence, unspecified, uncomplicated - Other fdc (current) drug therapy - Type 2 diabetes mellitus with diabetic chronic kidney disease - Chronic obstructive pulmonary disease, unspecified 06/08/2020 06:43 [facility] TYPE: Emergency COMPLAINT: - WEAKNESS, ABD PAIN DIAGNOSES: - Type 2 diabetes mellitus with diabetic chronic kidney disease - Other fdc (current) drug therapy - shelter (current) use of insulin - Allergy status [...] Chronic obstructive pulmonary disease, unspecified - Other apple thinner (current) drug therapy - Allergy status to other drugs, medicaments and biological substances - road traffic controller (current) use of insulin - Chest pain, [...] SOB, WEAK, HIGH PULSE RATE DIAGNOSES: - shelter (current) use of insulin - Heart failure, unspecified - road traffic controller (current) use of aspirin - Allergy status to other drugs, medicaments and biological substances - Weakness - Chronic kidney disease, stage 4 (severe) - Hypertensive heart and chronic kidney disease with heart failure and stage 1 through stage 4 chronic kidney disease, or unspecified chronic kidney disease - Chronic obstructive pulmonary disease, unspecified - Nicotine dependence, unspecified, uncomplicated - Other fdc (current) drug therapy - Type 2 diabetes [...] - Nicotine dependence, unspecified, uncomplicated - Other fdc (current) drug therapy - Chest pain, unspecified [...] INPATIENT VISIT TRACKING (12 MO.) 09/16/2020 01:23 [facility] TYPE: Medical Surgical DIAGNOSES: - [...] s/p heart cath, missed Dialysis 09/12/2020 01:22 [facility] [place] TYPE: Intensive Care DIAGNOSES: - Acute respiratory failure with hypoxia - Gastrointestinal hemorrhage, unspecified - Dependence on renal dialysis - Anemia, unspecified - Acute on chronic systolic (congestive) heart failure - End stage renal disease - Chronic kidney disease, stage 5 - Acute ischemic heart disease, unspecified - Non-ST elevation (NSTEMI) myocardial infarction 08/24/2020 22:50 [facility] TYPE: Internal Medicine DIAGNOSES: - End stage [...] mellitus with diabetic chronic kidney disease - shelter (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 of antithrombotics/antiplatelets - Acidosis - Acute respiratory failure with hypoxia - Allergy status to other drugs, medicaments and biological substances - Chronic obstructive pulmonary disease, unspecified - Acquired absence of left leg below knee - Acute and chronic respiratory failure with hypoxia - Opioid dependence, uncomplicated - Contact with and (suspected) exposure to other viral communicable diseases - Other fdc (current) drug therapy - shelter (current) use of aspirin - Hypertensive heart and chronic kidney disease with heart failure and stage 1 through stage 4 chronic kidney disease, or unspecified chronic kidney disease - Type 2 diabetes mellitus with diabetic chronic kidney disease - Anemia in chronic kidney disease - Obstructive sleep apnea (adult) (pediatric) - Chronic obstructive pulmonary disease, unspecified - Other fdc (current) drug therapy - Nicotine dependence, cigarettes, uncomplicated - road traffic controller (current) use of insulin - Allergy status to other drugs, medicaments and biological substances - Dependence on wheelchair - road traffic controller (current) use of aspirin - Hyperkalemia - Anemia in chronic kidney disease - road traffic controller (current) use of insulin - Acute systolic (congestive) heart failure - Anxiety disorder, unspecified - Opioid dependence, uncomplicated - Acute systolic (congestive) heart failure - road traffic controller (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 of antithrombotics/antiplatelets - Nicotine dependence, cigarettes, uncomplicated - Hypertensive heart and chronic kidney disease with heart failure and stage 1 through stage 4 chronic kidney disease, or unspecified chronic kidney disease - Anxiety disorder, unspecified - Hyperkalemia - Acquired absence of left leg below knee - Dependence on wheelchair - Acidosis - Obstructive sleep apnea (adult) (pediatric) [email or web address]
== END 2020-12-31 16:15 | disposition home or self-care (01) ==
LOC: ED 14:50
DX: J35.8 Other chronic diseases of tonsils and adenoids (principal); C09.9 Malignant neoplasm of tonsil, unspecified; E11.9 Type 2 diabetes mellitus without complications; I13.0 Hypertensive heart and chronic kidney disease with heart failure and stage 1 through stage 4 chronic kidney disease, or unspecified chronic kidney disease; J44.9 Chronic obstructive pulmonary disease, unspecified; I50.9 Heart failure, unspecified; N18.4 Chronic kidney disease, stage 4 (severe); Z87.891 Personal history of nicotine dependence; Z88.8 Allergy status to other drugs, medicaments and biological substances; Z79.899 Other long term (current) drug therapy; Z79.4 Long term (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 of insulin; Z79.82 Long term (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 of aspirin
CPT/HCPCS: 99283

== ENCOUNTER 2021-01-25 05:40 | Day surgery (SDC) | payer MEDICARE, OTHER ==
[~2021-01-25] VITALS: Ht 172.7 cm; Wt 75.0 kg
--- NOTE | 2021-01-25 09:19 | NUR ---
01/25/21 0919 Chasity Mccoy 0908-PATIENT ARRIVED TO PACU ON 10L NONREBREATHER MASK RR EVEN. ORAL AIRWAY IN PLACE. PATIENT NONAROUSABLE. SR. PORTACATH INCISION SITE CDI MIDLINE. BRUISING NOTED TO LEFT CHEST FROM PROCEDURE. GLUCOSE CHECKED 190. IVF INFUSING. 0915-PATIENT PLACED ON 6L MASK RR EVEN 100% REMAINS NONAROUSABLE WITH ORAL AIRWAY IN PLACE.
[2021-01-25] MEDS ORDERED: HYDROMORPHONE HC4 MG PO (09:35)
--- NOTE | 2021-01-25 10:11 | NUR ---
PATIENT RETURNS TO DAY SURGERY AND HE IS AWAKE AND ARGUING WITH HIS DAUGHTER. PATIENT IS VOLATILE. HE IS SWEARING AT HIS DAUGHTER. HE REPORTS HE HURTS ON HIS RIGHT FOOT AND HIS "STUMP." PATIENT IS EATING SUGAR FREE PUDDING WITH THE ASSISTANCE OF HIS DAUGHTER. LOOSE, DIRTY BANDAIDS ARE NOTED TO PATIENT'S RIGHT HEEL AND BIG TOE. THESE BANDAIDS ARE REMOVED. HEEL FOAM CIRCULAR PAD IS CLEAN AND REUSED AND COVERED WITH SMALL ALLEVYN DRESSING. RIGHT BIG TOE LATERAL WOUND IS COMPLETELY COVERED IN CREAM COLORED SLOUGH. REDNESS IS NOTED TO BE EXTENDING TOWARD PATIENT'S KNEE. COLLAGEN PLACED INTO WOUND BED AND IT IS LOOSLEY COVERED WITH ROLL GAUZE AND SECURED IN PLACE WITH TAPE. PATIENT AND HIS DAUGHTER ARE URGED TO SEE PATIENT'S ANIMAL CYTOLOGIST URGENTLY. PATIENT'S DAUGHTER REPORTS HIS ANIMAL CYTOLOGIST IS IN [place] AND SHE WILL CALL AND GET HIM IN TO BE SEEN. PATIENT'S DAUGHTER IS INSTRUCTED TO KEEP THE WOUNDS CLEAN AND COVERED UNTIL HE GETS IN WITH PODIATRY AND THAT IF THE REDNESS ON HIS FOOT CONTINUES TO INCREASE, HE STARTS RUNNING A FEVER OVER 100.5 OR HAS ANY CHANGE IN LOC, HE NEEDS TO BE SEEN ON AN EMERGENT BASIS IN AN ER. PATIENT'S DAUGHTER VERBALIZES UNDERSTANDING OF THIS. CONTINUOUS PULSE OXIMETER IS IN PLACE AND CALL LIGHT IS WITHIN REACH.
--- NOTE | 2021-01-25 11:30 | NUR ---
PROVIDED PATIENT WITH DISCHARGE EDUCATION WITH DAUGHTER OLIVER AT BEDSIDE. ANSWERED QUESTIONS AND CONCERNS. PATIENT NEEDED ASSIST WITH DRESSING, BUT WAS ABLE TO TRANSFER SELF TO WHEELCHAIR AND USE BATHROOM. VOIDED 500 ML. PROVIDED PATIENT RIDE TO FRONT, AND PATIENT THEN TRANSFERED SELF TO CAR.
--- NOTE | 2021-01-26 11:20 | OR ---
[facility] [address], [place] [address] Signed DATE OF OPERATION: 01/25/2021 SURGEON: Haris Gardner MD PREOPERATIVE DIAGNOSES: 1. 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 2. Multiple medical problems including congestive heart failure, chronic obstructive pulmonary disease (home oxygen dependent) and persistent anti-platelet therapy. POSTOPERATIVE DIAGNOSES: 1. 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 2. Multiple medical problems including congestive heart failure, chronic obstructive pulmonary disease (home oxygen dependent) and persistent anti-platelet therapy. PROCEDURES: 1. Right internal jugular Bard port catheter placement with ultrasound guidance. 2. Surgeon-directed fluoroscopy, all this prolonged, complicated and difficult... lasting 4 times longer than usual. ANESTHESIA: Local with monitored anesthesia care; Haris Kaiser CRNA and local 10 mL of 0.25% Marcaine with epinephrine. INDICATION: This 80-year-old white man is a patient of Dr. Ok Goss and recently Dr. Romo and Dr. Dewitt. He was found to have a right tonsillar squamous cell carcinoma as well as extension of this to the hypopharynx. The plan for chemotherapy and radiation therapy is outlined. He was referred initially for a PEG tube anticipating difficulty with swallowing postprocedure and posttherapy, but additionally requested to have central venous catheter for chemotherapy. Notably, the patient has an AV fistula in right proximal arm for hemodialysis which he undergoes three days a week. The patient is on Plavix and numerous other medications and has been advised that he cannot be withdrawn from Plavix even briefly for operative interventions. We have considered the situation and at this time, a central venous access is priority to allow for initiation of chemotherapy anticipated for next week. Given restrictions on his anti-platelet therapy, consideration is made for possible tunneled Groshong catheter rather than a Port-A-Cath that is originally planned. Combination of PEG tube Electronically Signed By: HARIS GARDNER MD 01/26/21 1120 PATIENT NAME: PORFIRIO ZAVALA OPERATIVE REPORT DATE OF : 40 REPORT #: [id number] PHYSICIAN: HARIS GARDNER MD PCP: TAWANA ROMO REPORT IS CONFIDENTIAL AND NOT TO BE RELEASED WITHOUT AUTHORIZATION [facility] [address] [place] [id number] Signed and Port-A-Cath is contraindicated on the basis of an infectious risk for the port device itself and today; venous access is a priority. The patient and his daughter understand the risks of bleeding, infection, pneumothorax, and other unforeseen complications related to placement of the device and wished to proceed. FINDINGS: An intended site was the left subclavian area. Venous access was obtained more than once, but passage of the wire was not forthcoming. Fluoroscopic evaluation and attempts at manipulation into the more central system were completely ineffective and on that basis, the left side was abandoned. It is notable that previous dialysis on the left side was ineffective as well. It may be that his median sternotomy and intervention related to it or perhaps prior mahurker dialysis catheter may have distorted the venous anatomy. Most likely a temporary venous access catheter on the left side had initiated scarring of the subclavian vein or something of that sort. On that basis, the right side was used via the right internal jugular vein. Notably, there was a thrill in the AV fistula of his proximal right arm and extending to the right subclavian area. The catheter was ultimately placed with good function for aspiration of blood and infusion of heparinized saline. The procedure was prolonged, complicated, and difficult on the basis of these factors. It took four times longer than usual easily. DESCRIPTION OF PROCEDURE: The patient was brought to the operating room and placed in mild Trendelenburg position. Preoperative antibiotic Ancef was given. Sequential compression device stockings were used. Heparin was not administered. 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 The upper torso was prepared with a chlorhexidine solution and draped sterilely. A 0.25% Marcaine was injected in the left infraclavicular space. Using the Seldinger technique with a Groshong catheter kit, access to the left subclavian vein was undertaken showing dark nonpulsatile blood. Passage of a flexible J-wire down the needle was interrupted approximately 10 cm into this area. Various manipulations did not allow it to pass. The needle was withdrawn and additional access undertaken on several occasions again identifying dark nonpulsatile blood. Passage of a flexible J-wire was simply not possible and on that basis, fluoroscopy was used, noting that the wire was in a distorted and abnormal position. Under fluoroscopic control, withdrawal of the wire was undertaken attempting to manipulated into the subclavian more fully, but despite several attempts, it was not forthcoming. The left side needed to be abandoned. Pressure was applied to the site with mindful of his anti-platelet therapy. Electronically Signed By: HARIS GARDNER MD 01/26/21 1120 PATIENT NAME: PORFIRIO ZAVALA OPERATIVE REPORT DATE OF : 40 REPORT #: [id number] PHYSICIAN: HARIS GARDNER MD PCP: TAWANA ROMO REPORT IS CONFIDENTIAL AND NOT TO BE RELEASED WITHOUT AUTHORIZATION [facility] [address], [place] [address] Signed A plan for right-sided catheterization was then made. The drapes had to be taken down in the neck, re-prepped due to his numerous tubes, face mask and so forth that was precluding good access to the right neck. Once this was accomplished and redraped, a SonoSite ultrasound was used to identify the right internal jugular vein and the right carotid artery. Sterile technique was maintained throughout of course. Using the Seldinger technique, the right internal jugular catheter was easily accessed showing dark nonpulsatile blood. A flexible J-wire was passed down the needle without problem and fluoroscopy confirmed the wire to be in the right heart system. Despite him being on anti-platelet therapy, he did not have excessive bleeding from the interventions previously undertaken and a Port-A-Cath was deemed reasonably possible and probably preferable under his social circumstances. On that basis, a port kit was obtained and a right transverse incision made over the pectoralis muscle after injection of local anesthetic. A pocket was created with blunt and electrocautery dissection. The patient has a thin chest wall,and not that much subcutaneous tissue. The port device was flushed and partially secured to the pectoralis fascia. At the wire exit site, the site was incised with an #11 blade, dilated and subsequently a dilator and peel-away sheath introducer passed over the wire. The wire and dilator were removed showing vigorous dark retrograde nonpulsatile bleeding. The previously inspected Groshong catheter which had been irrigated with heparinized saline was passed down the sheath. Sheath peeled away and removed and fluoroscopy undertaken. Under fluoroscopic control, injection of small amount of radiodense dye, the catheter tip was withdrawn to the superior vena cava. A tunneling device was used to deliver the catheter to the port-pocket site. It was trimmed to the appropriate length, secured to the port device, easily able to flush, but not aspirate well. Fluoroscopic evaluation showed no sign of kink at the port itself, but at the entry point to the neck, there was a bit of angulation deformity. That site was examined a bit more and withdrawal of the catheter through the port site seemed to straighten out this angulation deformity. This resulted in fewer cm of catheter distally no doubt, but the catheter was trimmed, reattached to the port device after removing it and resecuring it per manufacture's instructions. Following that, the port device aspirated easily showing dark nonpulsatile blood and easy flushing with heparinized saline. The pocket was then secured with interrupted 2-0 Vicryl, the skin was closed with running subcuticular of 3-0 Vicryl, Steri-Strips were applied as was a silver sponge dressing. The puncture side of the neck was secured with Vicryl and Steri-Strips as well. The patient tolerated procedure well though it was prolonged, complicated, and difficult compared to usual. Sponge, needle, and instrument counts were reported as correct x3. Electronically Signed By: HARIS GARDNER MD 01/26/21 1120 PATIENT NAME: PORFIRIO ZAVALA OPERATIVE REPORT DATE OF : 40 REPORT #: [id number] PHYSICIAN: HARIS GARDNER MD PCP: TAWANA ROMO REPORT IS CONFIDENTIAL AND NOT TO BE RELEASED WITHOUT AUTHORIZATION [address] [address] Signed MD AIDAN Wellington/SHANDA /[id number] cc: MD Jessenia Marrero MD Juno Choe, MD, PH.D. Copies: JESSENIA GOSS DMD, ROBERT C MD CHOE, JUNO ~ Electronically Signed By: HARIS GARDNER MD 01/26/21 1120 PATIENT NAME: PORFIRIO ZAVALA OSWALDO OPERATIVE REPORT DATE OF : 40 REPORT #: [id number] PHYSICIAN: HARIS GARDNER MD PCP: TAWANA ROMO REPORT IS CONFIDENTIAL AND NOT TO BE RELEASED WITHOUT AUTHORIZATION
== END 2021-01-25 11:30 | disposition home or self-care (01) ==
LOC: OPS 05:40 → DS 05:40 → OPS 06:45
PROVIDERS: ATTEND Surgery
PROC: 0JH60XZ Insertion of Tunneled Vascular Access Device into Chest Subcutaneous Tissue and Fascia, Open Approach (ICD-10-PCS; principal; 2021-01-25 06:45)
PROC: 02HV33Z Insertion of Infusion Device into Superior Vena Cava, Percutaneous Approach (ICD-10-PCS; 2021-01-25 06:45)
DX: C09.8 Malignant neoplasm of overlapping sites of tonsil (principal); E11.22 Type 2 diabetes mellitus with diabetic chronic kidney disease; I13.2 Hypertensive heart and chronic kidney disease with heart failure and with stage 5 chronic kidney disease, or end stage renal disease; N18.6 End stage renal disease; I50.9 Heart failure, unspecified; I25.10 Atherosclerotic heart disease of native coronary artery without angina pectoris; J44.9 Chronic obstructive pulmonary disease, unspecified; I25.2 Old myocardial infarction; G47.33 Obstructive sleep apnea (adult) (pediatric); G89.29 Other chronic pain; H91.90 Unspecified hearing loss, unspecified ear; K21.9 Gastro-esophageal reflux disease without esophagitis; Z20.822 Contact with and (suspected) exposure to COVID-19; Z79.02 Long term (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 of antithrombotics/antiplatelets; Z79.4 Long term (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 of insulin; Z79.82 Long term (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 of aspirin; Z79.891 Long term (current) use of opiate analgesic; Z95.5 Presence of coronary angioplasty implant and graft; Z90.411 Acquired partial absence of pancreas; Z89.612 Acquired absence of left leg above knee; Z87.891 Personal history of nicotine dependence; Z99.81 Dependence on supplemental oxygen; Z99.2 Dependence on renal dialysis; Z86.718 Personal history of other venous thrombosis and embolism; Z88.8 Allergy status to other drugs, medicaments and biological substances; Z86.73 Personal history of transient ischemic attack (TIA), and cerebral infarction without residual deficits; Z86.711 Personal history of pulmonary embolism
CPT/HCPCS: 00532; 36415; 71045; 77001; 80053; 82247; 82465; 83615; 84100; 84478; 84550; 85025; C1788; J0690; J1100; J1644; J1885; J2405; J2704; J3010; J7121; U0003

== ENCOUNTER 2021-02-01 01:47 | Emergency (ER) | payer MEDICARE, OTHER ==
[~2021-02-01] VITALS: Ht 172.7 cm; Wt 72.6 kg
[~2021-02-01 01:47] MED LIST changes: +HYDROMORPHONE HC4 MG PO
--- OUTSIDE RECORDS SUMMARY | 2021-02-01 01:50 | XMS ---
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 - Has Care Guidelines - History of Sepsis Dx - PDMP CARE PROVIDERS JESSENIA GOSS [facility] 05/09/2020-Current PH[facility]: [phone] [facility] HARDIK Van PHONE: [phone] Alina Clark Director Of Recruitment/Charge Nurse 01/01/2021-Current PHONE: [phone] [facility] has no Care Guidelines for this patient. Care History Medical/Surgical 08/16/2020 [facility] - [facility] CONTACTED PCP OFFICE- DISCUSSED ONGOING ED VISIT CONCERNS- - PATIENT WAS LAST SEEN BY PCP ON 08/11/2020, CANCELLED APT ON 08/14/2020 AND HAS A FOLLOW UP APT ON 08/24/2020. - [facility] AT [facility] NOTIFIED OF ED VISIT 08/15/2020. 05/17/2020 [facility] Called PCP office to verify respiratory medication regimine. Patient has been prescribed DANA\T\#39;s in MDI and nebulizor form and triple therapy for mantanence inhaled medication. Patient\T\#39;s pharmacy history indicates that he is filling his inhaled medications. Will call patient\T\#39;s hospice care consultant to offer inhaler training. 11/10/2019 [facility] - PLEASE MAKE SURE- ALL RECORDS ARE SENT TO DR BARTON-PATIENT RN CARDIOVASCULAR ICU IN [place]. E.Edin VISIT COUNT (12 MO.) 1 [facility] 16 [facility]. TOTAL 17 NOTE: Visits indicate total known visits. 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 - Other oysterman (current) drug therapy - Other chronic diseases of tonsils and adenoids - Other chronic diseases of tonsils and adenoids - Chronic kidney disease, stage 4 (severe) - Allergy status to other drugs, medicaments and biological substances - Hypertensive heart and chronic kidney disease with heart failure and stage 1 through stage 4 chronic kidney disease, or unspecified chronic kidney disease - 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] - Chronic kidney disease, unspecified - Other oysterman (current) drug therapy - Headache, unspecified - Type 2 diabetes mellitus with diabetic chronic kidney disease 11/06/2020 11:28 [facility] [place] TYPE: Emergency COMPLAINT: - SPITTING UP BLOOD DIAGNOSES: - snf (current) use of aspirin - Allergy status to other drugs, medicaments and biological substances - 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 - Heart failure, unspecified - Other oysterman (current) drug therapy - Chronic obstructive pulmonary [...] mellitus with diabetic chronic kidney disease - 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 - Personal history of nicotine dependence - Heart failure, unspecified - Chronic kidney disease, stage 4 (severe) - Hypertensive heart and chronic kidney disease with heart failure and stage 1 through stage 4 chronic kidney disease, or unspecified chronic kidney disease - Other snf (current) drug therapy - Allergy status to other drugs, medicaments and biological substances - snf (current) use of aspirin - Right lower quadrant pain - Postprocedural hematoma of a circulatory system organ or structure following a cardiac catheterization - Personal history of transient ischemic attack (TIA), and cerebral infarction without residual deficits 09/15/2020 20:[address] [facility] [place] TYPE: Emergency COMPLAINT: - SOB DIAGNOSES: - snf (current) use of insulin - Hypertensive heart and chronic kidney disease with heart failure and stage 1 through stage 4 chronic kidney disease, or unspecified chronic kidney disease - Allergy status to other drugs, medicaments and biological substances - Heart failure, unspecified - Personal history of transient ischemic attack (TIA), and cerebral infarction without residual deficits - snf (current) use of aspirin - Chronic obstructive pulmonary disease, unspecified - Type 2 diabetes mellitus with diabetic chronic kidney disease - Anemia, unspecified - Dyspnea, unspecified - Postprocedural hematoma of skin and subcutaneous tissue following other procedure - Other snf (current) drug therapy - Personal history of [...] disease, or unspecified chronic kidney disease - 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 - Type 2 diabetes mellitus with diabetic chronic kidney disease - Personal history of nicotine dependence - Other oysterman (current) drug therapy - Allergy status to other drugs, medicaments and biological substances - Chronic kidney disease, stage 4 (severe) - Gastrointestinal hemorrhage, unspecified - 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 - Allergy status to other drugs, medicaments and biological substances - Chronic obstructive pulmonary disease, unspecified 08/24/2020 22:50 [facility] TYPE: Emergency DIAGNOSES: - End stage renal [...] substances - Nicotine dependence, unspecified, uncomplicated - snf (current) use of aspirin - Other snf (current) drug therapy - End stage renal disease - Heart failure, unspecified - 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 - Type 2 [...] DIAGNOSES: - Chronic kidney disease, unspecified - 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 - Allergy status [...] unspecified - Shortness of breath - Other snf (current) drug therapy - Type 2 diabetes mellitus with diabetic chronic kidney disease - 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 - Heart failure, unspecified - Personal history of transient ischemic attack (TIA), and cerebral infarction without residual deficits 08/01/2020 23:03 [facility] [place] TYPE: Emergency COMPLAINT: - CHEST PAIN DIAGNOSES: - Dependence on renal dialysis - snf (current) use of insulin - Chest pain, unspecified - Chronic kidney disease, stage 4 (severe) - Heart failure, unspecified - Hypertensive heart and chronic kidney disease with heart failure and stage 1 through stage 4 chronic kidney disease, or unspecified chronic kidney disease - Nicotine dependence, unspecified, uncomplicated - Other snf (current) drug therapy - Type 2 diabetes mellitus with diabetic chronic kidney disease - Chronic obstructive pulmonary disease, unspecified 06/08/2020 06:43 [facility] [place] TYPE: Emergency COMPLAINT: - WEAKNESS, ABD PAIN DIAGNOSES: - Type 2 diabetes mellitus with diabetic chronic kidney disease - Other snf (current) drug therapy - 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 - Allergy status [...] Chronic obstructive pulmonary disease, unspecified - Other oysterman (current) drug therapy - Allergy status to other drugs, medicaments and biological substances - snf (current) use of insulin - Chest pain, [...] SOB, WEAK, HIGH PULSE RATE DIAGNOSES: - 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 - Heart failure, unspecified - snf (current) use of aspirin - Allergy status to other drugs, medicaments and biological substances - Weakness - Chronic kidney disease, stage 4 (severe) - Hypertensive heart and chronic kidney disease with heart failure and stage 1 through stage 4 chronic kidney disease, or unspecified chronic kidney disease - Chronic obstructive pulmonary disease, unspecified - Nicotine dependence, unspecified, uncomplicated - Other oysterman (current) drug therapy - Type 2 diabetes [...] - Nicotine dependence, unspecified, uncomplicated - Other snf (current) drug therapy - Chest pain, unspecified - Heart failure, unspecified 02/14/2020 22:26 [facility] TYPE: Emergency COMPLAINT: - HIGH BLOOD SUGAR DIAGNOSES: - Nicotine dependence, unspecified, uncomplicated - Type 2 diabetes mellitus with hyperglycemia - Chest pain, unspecified - Chronic obstructive pulmonary disease, unspecified - Heart failure, unspecified - Hypertensive heart disease with heart failure INPATIENT VISIT TRACKING (12 MO.) 09/16/2020 01:23 [facility] TYPE: Medical Surgical DIAGNOSES: [...] s/p heart cath, missed D[facility] DIAGNOSES: - Acute respiratory failure with hypoxia - Gastrointestinal hemorrhage, unspecified - Dependence on renal dialysis - Anemia, unspecified - Acute on chronic systolic (congestive) heart failure - End stage renal disease - Chronic kidney disease, stage 5 - Acute ischemic heart disease, unspecified - Non-ST elevation (NSTEMI) myocardial infarction 08/24/2020 22:50 [facility] TYPE: Internal Medicine DIAGNOSES: - End [...] disease, stage 5 - Acidosis 08/16/2020 21:[address] 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 of antithrombotics/antiplatelets - Acidosis - Acute respiratory failure with hypoxia - Allergy status to other drugs, medicaments and biological substances - Chronic obstructive pulmonary disease, unspecified - Acquired absence of left leg below knee - Acute and chronic respiratory failure with hypoxia - Opioid dependence, uncomplicated - Contact with and (suspected) exposure to other viral communicable diseases - Other snf (current) drug therapy - 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 - Hypertensive heart and chronic kidney disease with heart failure and stage 1 through stage 4 chronic kidney disease, or unspecified chronic kidney disease - Type 2 diabetes mellitus with diabetic chronic kidney disease - Anemia in chronic kidney disease - Obstructive sleep apnea (adult) (pediatric) - Chronic obstructive pulmonary disease, unspecified - Other oysterman (current) drug therapy - Nicotine dependence, cigarettes, uncomplicated - snf (current) use of insulin - Allergy status to other drugs, medicaments and biological substances - Dependence on wheelchair - snf (current) use of aspirin - Hyperkalemia - Anemia in chronic kidney disease - 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 - Acute systolic (congestive) heart failure - Anxiety disorder, unspecified - Opioid dependence, uncomplicated - Acute systolic (congestive) heart failure - 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
[2021-02-01] MEDS ORDERED: AUGMENTIN 875-1 EACH PO (03:23)
== END 2021-02-01 08:40 | disposition short-term general hospital (02) ==
LOC: ED 01:47
PROC: 0T9B70Z Drainage of Bladder with Drainage Device, Via Natural or Artificial Opening (ICD-10-PCS; principal; 2021-02-01)
PROC: 4A0D7LZ Measurement of Urinary Volume, Via Natural or Artificial Opening (ICD-10-PCS; 2021-02-01)
DX: A41.9 Sepsis, unspecified organism (principal); Z20.822 Contact with and (suspected) exposure to COVID-19; E11.22 Type 2 diabetes mellitus with diabetic chronic kidney disease; I13.0 Hypertensive heart and chronic kidney disease with heart failure and stage 1 through stage 4 chronic kidney disease, or unspecified chronic kidney disease; I50.9 Heart failure, unspecified; N18.4 Chronic kidney disease, stage 4 (severe); J44.9 Chronic obstructive pulmonary disease, unspecified; F17.200 Nicotine dependence, unspecified, uncomplicated; Z88.8 Allergy status to other drugs, medicaments and biological substances; Z79.899 Other long term (current) drug therapy; Z79.4 Long term (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 of insulin; Z79.82 Long term (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 of aspirin
CPT/HCPCS: 36415; 51701; 51798; 71045; 80053; 81001; 83605; 85025; 85610; 85730; 99285-25; C9803; J3370; J7060; U0003

== ENCOUNTER 2021-05-24 09:38 | Emergency (ER) | payer MEDICARE, OTHER ==
[~2021-05-24] VITALS: Ht 172.7 cm; Wt 74.8 kg
--- OUTSIDE RECORDS SUMMARY | 2021-05-24 09:42 | XMS ---
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 Care History Medical/Surgical 08/16/2020 [facility] - [facility] CONTACTED PCP OFFICE- DISCUSSED ONGOING ED VISIT CONCERNS- - PATIENT WAS LAST SEEN BY PCP ON 08/11/2020, CANCELLED APT ON 08/14/2020 AND HAS A FOLLOW UP APT ON 08/24/2020. - [facility]-CARDIAC REH[facility] AND [facility]RE[facility]-PULMONARY REHAB AT [facility] NOTIFIED OF ED VISIT 08/15/2020. 05/17/2020 [facility] Called PCP office to verify respiratory medication regimine. Patient has been prescribed DANA\T\#39;s in MDI and nebulizor form and triple therapy for mantanence inhaled medication. Patient\T\#39;s pharmacy history indicates that he is filling his inhaled medications. Will call patient\T\#39;s care process manager to offer inhaler training. 11/10/2019 [facility] - PLEASE MAKE SURE- ALL RECORDS ARE SENT TO DR BARTON-PATIENT PROCESSING ASSOCIATE IN [place]. EAugustina VISIT COUNT (12 MO.) [address] TOTAL 14 NOTE: Visits indicate total known visits. ED/C VISIT TRACKING (12 MO.) 05/24/2021 09:39 [facility] TYPE: Emergency COMPLAINT: - CHEST PAIN 02/01/2021 01:48 [facility] TYPE: Emergency COMPLAINT: - CHEST PAIN, SPITTING UP BLOOD DIAGNOSES: - Dependence on renal dialysis - Hypertensive heart and chronic kidney disease with heart failure and stage 1 through stage 4 chronic kidney disease, or unspecified chronic kidney disease - Other roasterman (current) drug therapy - correction (current) use of insulin - Chronic kidney disease, stage 4 (severe) - Type 2 diabetes mellitus with diabetic chronic kidney disease - Nicotine dependence, unspecified, uncomplicated - Heart failure, unspecified - Allergy status to other drugs, medicaments and biological substances - Sepsis, unspecified organism - Chronic obstructive pulmonary disease, unspecified - 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 12/31/2020 14:51 [facility] TYPE: Emergency COMPLAINT: - BLEEDING FROM MOUTH DIAGNOSES: - Chronic obstructive pulmonary disease, unspecified - Personal history of nicotine dependence - Type 2 diabetes mellitus without complications - Malignant neoplasm of tonsil, unspecified - Malignant neoplasm of tonsil, unspecified - Heart failure, unspecified - correction (current) use of insulin - Other correction (current) drug therapy - Other chronic diseases of tonsils and adenoids - Other chronic diseases of tonsils and adenoids - Chronic kidney disease, stage 4 (severe) - Allergy status to other drugs, medicaments and biological substances - Hypertensive heart and chronic kidney disease with heart failure and stage 1 through stage 4 chronic kidney disease, or unspecified chronic kidney disease - 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 12/18/2020 23:56 [facility] TYPE: Emergency COMPLAINT: - HEAD PAIN,MOUTH PAIN/ NON INJ DIAGNOSES: - Personal history of nicotine dependence - correction (current) use of insulin - Heart failure, unspecified - Allergy status to other drugs, medicaments and biological substances - Chronic kidney disease, stage 4 (severe) - Personal history of transient ischemic attack (TIA), and cerebral infarction without residual deficits - correction (current) use of aspirin - Acute sinusitis, [...] - Chronic kidney disease, unspecified - Other correction (current) drug therapy - Headache, unspecified - Type 2 diabetes mellitus with diabetic chronic kidney disease 11/06/2020 11:28 [facility] TYPE: Emergency COMPLAINT: - SPITTING UP BLOOD DIAGNOSES: - 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 - Allergy status to other drugs, medicaments and biological substances - 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 - Heart failure, unspecified - Other roasterman (current) drug therapy - Chronic obstructive pulmonary [...] - correction (current) use of insulin - Personal history of nicotine dependence - Heart failure, unspecified - Chronic kidney disease, stage 4 (severe) - Hypertensive heart and chronic kidney disease with heart failure and stage 1 through stage 4 chronic kidney disease, or unspecified chronic kidney disease - Other correction (current) drug therapy - Allergy status to other drugs, medicaments and biological substances - correction (current) use of aspirin - Right lower quadrant pain - Postprocedural hematoma of a circulatory system organ or structure following a cardiac catheterization - Personal history of transient ischemic attack (TIA), and cerebral infarction without residual deficits 09/15/2020 20:28 [facility] TYPE: Emergency COMPLAINT: - SOB DIAGNOSES: - correction (current) use of insulin - Hypertensive heart and chronic kidney disease with heart failure and stage 1 through stage 4 chronic kidney disease, or unspecified chronic kidney disease - Allergy status to other drugs, medicaments and biological substances - Heart failure, unspecified - Personal history of transient ischemic attack (TIA), and cerebral infarction without residual deficits - correction (current) use of aspirin - Chronic obstructive pulmonary disease, unspecified - Type 2 diabetes mellitus with diabetic chronic kidney disease - Anemia, unspecified - Dyspnea, unspecified - Postprocedural hematoma of skin and subcutaneous tissue following other procedure - Other roasterman (current) drug therapy - Personal history of [...] disease, or unspecified chronic kidney disease - 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 - Type 2 diabetes mellitus with diabetic chronic kidney disease - Personal history of nicotine dependence - Other roasterman (current) drug therapy - Allergy status to other drugs, medicaments and biological substances - Chronic kidney disease, stage 4 (severe) - Gastrointestinal hemorrhage, unspecified - correction (current) use of aspirin - Allergy status to other drugs, medicaments and biological substances - Chronic obstructive pulmonary disease, unspecified 08[facility]24[facility]2020 22[facility]50 [facility] DIAGNOSES: - End stage renal [...] substances - Nicotine dependence, unspecified, uncomplicated - correction (current) use of aspirin - Other roasterman (current) drug therapy - End stage renal disease - Heart failure, unspecified - 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 - [...] DIAGNOSES: - Chronic kidney disease, unspecified - 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 - [...] unspecified - Shortness of breath - Other roasterman (current) drug therapy - Type 2 diabetes mellitus with diabetic chronic kidney disease - correction (current) use of aspirin - Heart failure, unspecified - Personal history of transient ischemic attack (TIA), and cerebral infarction without residual deficits 08/01/2020 23:03 [facility] TYPE: Emergency COMPLAINT: - CHEST PAIN DIAGNOSES: - Dependence on renal dialysis - 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 - Chest pain, unspecified - Chronic kidney disease, stage 4 (severe) - Heart failure, unspecified - Hypertensive heart and chronic kidney disease with heart failure and stage 1 through stage 4 chronic kidney disease, or unspecified chronic kidney disease - Nicotine dependence, unspecified, uncomplicated - Other correction (current) drug therapy - Type 2 diabetes mellitus with diabetic chronic kidney disease - Chronic obstructive pulmonary disease, unspecified 06/08/2020 06:43 [facility] TYPE: Emergency COMPLAINT: - WEAKNESS, ABD PAIN DIAGNOSES: - Type 2 diabetes mellitus with diabetic chronic kidney disease - Other roasterman (current) drug therapy - 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 CELL CA OF TONSIL; ESRD; CVA DIAGNOSES: 0. Fever, unspecified 1. Toxic encephalopathy 1. Unspecified infection due to central venous catheter, initial encounter 2. End stage renal disease 3. Unspecified severe protein-calorie malnutrition 4. Encephalopathy, unspecified 4. Unspecified infection due to central venous catheter, initial encounter 5. Hypertensive heart and chronic kidney disease with heart failure and with stage 5 chronic kidney disease, or end stage renal disease 6. Hemoptysis 7. Major depressive disorder, recurrent, mild 7. Non-pressure chronic ulcer of right heel and midfoot with unspecified severity 8. Do not resuscitate 9. Body mass index [BMI] 25.0-25.9, adult 10. Adverse effect of antineoplastic and immunosuppressive drugs, initial encounter 11. Unspecified place or not applicable 12. Heart failure, unspecified 13. Malignant neoplasm of tonsillar fossa 14. 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 Obstructive sleep apnea (adult) (pediatric) 16. Chronic obstructive pulmonary disease, unspecified 17. Anemia in chronic kidney disease 18. Renal osteodystrophy 19. Nicotine dependence, cigarettes, uncomplicated 20. Type 2 diabetes mellitus with foot ulcer 21. Pressure ulcer of right heel, stage 2 21. Non-pressure chronic ulcer of other part of right foot with unspecified severity 22. Dependence on renal dialysis 23. Dependence on wheelchair 24. Allergy status to other drugs, medicaments and biological substances 25. Presence of coronary angioplasty implant and graft 26. Personal history of transient ischemic attack (TIA), and cerebral infarction without residual deficits 27. Patient's noncompliance with renal dialysis 28. Other correction (current) drug therapy 29. 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 correction (current) use of insulin 31. regional intermodal truck driver (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 of antithrombotics/antiplatelets 32. correction (current) use of opiate analgesic 09/16/2020 01:23 [facility] TYPE: Medical Surgical DIAGNOSES: [...] s/p heart cath, missed Dialysis 09/12/2020 01:22 [facility] TYPE: Intensive Care DIAGNOSES: - Acute respiratory failure with hypoxia - Gastrointestinal hemorrhage, unspecified - Dependence on renal dialysis - Anemia, unspecified - Acute on chronic systolic (congestive) heart failure - End stage renal disease - Chronic kidney disease, stage 5 - Acute ischemic heart disease, unspecified - Non-ST elevation (NSTEMI) myocardial infarction 08/24/2020 22:50 [facility] TYPE: Internal Medicine DIAGNOSES: - End [...] to other viral communicable diseases - Other correction (current) drug therapy - 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 - Hypertensive heart and chronic kidney disease with heart failure and stage 1 through stage 4 chronic kidney disease, or unspecified chronic kidney disease - Type 2 diabetes mellitus with diabetic chronic kidney disease - Anemia in chronic kidney disease - Obstructive sleep apnea (adult) (pediatric) - Chronic obstructive pulmonary disease, unspecified - Other correction (current) drug therapy - Nicotine dependence, cigarettes, uncomplicated - 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 - Allergy status to other drugs, medicaments and biological substances - Dependence on wheelchair - correction (current) use of aspirin - Hyperkalemia - Anemia in chronic kidney disease - 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 - Acute systolic (congestive) heart failure - Anxiety disorder, unspecified - Opioid dependence, uncomplicated - Acute systolic (congestive) heart failure - 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
--- NOTE | 2021-05-26 14:00 | EKG ---
[facility] [address] [facility] [place] [address] Signed Sinus rhythm with premature atrial complexes Septal infarct (cited on or before 11-SEP-2020) Abnormal ECG When compared with ECG of 19-DEC-2020 00:18, premature atrial complexes are now present Questionable change in initial forces of Septal leads Nonspecific T wave abnormality no longer evident in Lateral leads Confirmed by BROOKE FERNÁNDEZ DO ([id number]) on 05/26/2021 2:00:46 PM Electronically Signed By: BROOKE FERNÁNDEZ DO 05/26/21 1400 PATIENT NAME: PORFIRIO ZAVALA Electrocardiogram DATE OF : 40 PHYSICIAN: BROOKE FERNÁNDEZ DO REPORT #: [id number] REPORT IS CONFIDENTIAL AND NOT TO BE RELEASED WITHOUT AUTHORIZATION
== END 2021-05-24 10:13 | disposition left against medical advice (07) ==
LOC: ED 09:38
DX: R07.9 Chest pain, unspecified (principal); E11.22 Type 2 diabetes mellitus with diabetic chronic kidney disease; I13.2 Hypertensive heart and chronic kidney disease with heart failure and with stage 5 chronic kidney disease, or end stage renal disease; J44.9 Chronic obstructive pulmonary disease, unspecified; I50.9 Heart failure, unspecified; N18.6 End stage renal disease; F17.200 Nicotine dependence, unspecified, uncomplicated; Z88.8 Allergy status to other drugs, medicaments and biological substances; Z79.4 Long term (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 of insulin; Z79.899 Other long term (current) drug therapy
CPT/HCPCS: 93005; 93010; 99284-25

== ENCOUNTER 2021-06-04 18:37 | Emergency (ER) | payer MEDICARE, OTHER ==
[~2021-06-04] VITALS: Ht 172.7 cm; Wt 71.7 kg
--- OUTSIDE RECORDS SUMMARY | 2021-06-04 18:40 | XMS ---
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 05/24/2021 09:39 - Other Details: PATIENT LEFT AMA. CRITERIA MET - - Has Care Guidelines - - 2 Visits in 30 Days - PDMP CARE PROVIDERS ANA PAULA 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 Care History Medical/Surgical 08/16/2020 [facility] - [facility] CONTACTED PCP OFFICE- DISCUSSED ONGOING ED VISIT CONCERNS- - PATIENT WAS LAST SEEN BY PCP ON 08/11/2020, CANCELLED APT ON 08/14/2020 AND HAS A FOLLOW UP APT ON 08/24/2020. - ENOCH [facility]VALLOS-CARDIAC REHAB AND [facility]-PULMONARY REHAB AT [facility] NOTIFIED OF ED VISIT 08/15/2020. 05/17/2020 [facility] Called PCP office to verify respiratory medication regimine. Patient has been prescribed DANA\T\#39;s in MDI and nebulizor form and triple therapy for mantanence inhaled medication. Patient\T\#39;s pharmacy history indicates that he is filling his inhaled medications. Will call patient\T\#39;s hearing care professional to offer inhaler training. 11/10/2019 [facility] - PLEASE MAKE SURE- ALL RECORDS ARE SENT TO DR BARTON-PATIENT TREE FELLER OPERATOR IN [place]. E.D. VISIT COUNT ([address] 1 [facility] 14 [facility]. TOTAL 15 NOTE: Visits indicate total known visits. ED/UCC VISIT TRACKING (12 MO.) 06/04/2021 18:37 [facility] TYPE: Emergency COMPLAINT: - ALTERED MENTAL STATUS 05/24/2021 09:39 [facility] TYPE: Emergency COMPLAINT: - CHEST PAIN DIAGNOSES: - Chest pain, unspecified - Chronic obstructive pulmonary disease, unspecified - Chronic kidney disease, stage 4 (severe) - Type 2 diabetes mellitus with diabetic chronic kidney disease - Nicotine dependence, unspecified, uncomplicated - Allergy status to other drugs, medicaments and biological substances - End stage renal disease - Heart failure, unspecified - [facility] (current) use of insulin - Hypertensive heart and chronic kidney disease with heart failure and stage 1 through stage 4 chronic kidney disease, or unspecified chronic kidney disease - Other crocheter (current) drug therapy - Hypertensive heart and chronic kidney disease with heart failure and with stage 5 chronic kidney disease, or end stage renal disease 02/01/2021 01:48 [facility] TYPE: Emergency COMPLAINT: - CHEST PAIN, SPITTING UP BLOOD DIAGNOSES: - Dependence on renal dialysis - Hypertensive heart and chronic kidney disease with heart failure and stage 1 through stage 4 chronic kidney disease, or unspecified chronic kidney disease - Other longterm (current) drug therapy - dope mixer (current) use of insulin - Chronic kidney disease, stage 4 (severe) - Type 2 diabetes mellitus with diabetic chronic kidney disease - Nicotine dependence, unspecified, uncomplicated - Heart failure, unspecified - Allergy status to other drugs, medicaments and biological substances - Sepsis, unspecified organism - Chronic obstructive pulmonary disease, unspecified - [facility] (current) use of aspirin 12/31/2020 14:51 [facility] TYPE: Emergency COMPLAINT: - BLEEDING FROM MOUTH DIAGNOSES: - Chronic obstructive pulmonary disease, unspecified - Personal history of nicotine dependence - Type 2 diabetes mellitus without complications - Malignant neoplasm of tonsil, unspecified - Malignant neoplasm of tonsil, unspecified - Heart failure, unspecified - dope mixer (current) use of insulin - Other crocheter (current) drug therapy - Other chronic diseases of tonsils and adenoids - Other chronic diseases of tonsils and adenoids - Chronic kidney disease, stage 4 (severe) - Allergy status to other drugs, medicaments and biological substances - Hypertensive heart and chronic kidney disease with heart failure and stage 1 through stage 4 chronic kidney disease, or unspecified chronic kidney disease - [facility] (current) use of aspirin 12/18/2020 23:56 [facility] TYPE: Emergency COMPLAINT: - HEAD PAIN,MOUTH PAIN/ NON INJ DIAGNOSES: - [facility] (current) use of opiate analgesic - Malignant neoplasm of pharynx, unspecified - Complete loss of teeth, unspecified cause, unspecified class - Type 2 diabetes mellitus with diabetic chronic kidney disease - Disorientation, unspecified - Acquired absence of left leg above knee - Dependence on renal dialysis - Headache, unspecified - Other longterm (current) drug therapy - Chronic kidney disease, unspecified - Chronic obstructive pulmonary disease, unspecified - Hypertensive heart and chronic kidney disease with heart failure and stage 1 through stage 4 chronic kidney disease, or unspecified chronic kidney disease - Personal history of nicotine dependence - Hypertensive chronic kidney disease with stage 1 through stage 4 chronic kidney disease, or unspecified chronic kidney disease - Abnormal electrocardiogram [ECG] [EKG] - Acute sinusitis, unspecified - dope mixer (current) use of aspirin - Personal history of transient ischemic attack (TIA), and cerebral infarction without residual deficits - Presence of coronary angioplasty implant and graft - Chronic kidney disease, stage 4 (severe) - Allergy status to other drugs, medicaments and biological substances - Heart failure, unspecified - [facility] (current) use of insulin [facility] COMPLAINT: - SPITTING UP BLOOD DIAGNOSES: - dope mixer (current) use of aspirin - Allergy status to other drugs, medicaments and biological substances - dope mixer (current) use of insulin - Heart failure, unspecified - Other longterm (current) drug therapy - Chronic obstructive pulmonary [...] mellitus with diabetic chronic kidney disease - [facility] (current) use of insulin - Personal history of nicotine dependence - Heart failure, unspecified - Chronic kidney disease, stage 4 (severe) - Hypertensive heart and chronic kidney disease with heart failure and stage 1 through stage 4 chronic kidney disease, or unspecified chronic kidney disease - Other crocheter (current) drug therapy - Allergy status to other drugs, medicaments and biological substances - dope mixer (current) use of aspirin - Right lower quadrant pain - Postprocedural hematoma of a circulatory system organ or structure following a cardiac catheterization - Personal history of transient ischemic attack (TIA), and cerebral infarction without residual deficits 09/15/2020 20:28 [facility] TYPE: Emergency COMPLAINT: - SOB DIAGNOSES: - [facility] (current) use of insulin - Hypertensive heart and chronic kidney disease with heart failure and stage 1 through stage 4 chronic kidney disease, or unspecified chronic kidney disease - Allergy status to other drugs, medicaments and biological substances - Heart failure, unspecified - Personal history of transient ischemic attack (TIA), and cerebral infarction without residual deficits - dope mixer (current) use of aspirin - Chronic obstructive pulmonary disease, unspecified - Type 2 diabetes mellitus with diabetic chronic kidney disease - Anemia, unspecified - Dyspnea, unspecified - Postprocedural hematoma of skin and subcutaneous tissue following other procedure - Other crocheter (current) drug therapy - Personal history of [...] disease, or unspecified chronic kidney disease - dope mixer (current) use of insulin - Type 2 diabetes mellitus with diabetic chronic kidney disease - Personal history of nicotine dependence - Other crocheter (current) drug therapy - Allergy status to other drugs, medicaments and biological substances - Chronic kidney disease, stage 4 (severe) - Gastrointestinal hemorrhage, unspecified - dope mixer (current) use of aspirin - Allergy status to other drugs, medicaments and biological substances - Chronic obstructive pulmonary disease, unspecified 08/24/2020 22:50 [facility] TYPE: Emergency DIAGNOSES: - End stage renal disease - Shortness of Breath - Non-ST elevation (NSTEMI) myocardial infarction - Dependence on renal dialysis - Fluid overload, unspecified - Other specified abnormal findings of blood chemistry - Heart failure, unspecified - Chronic kidney disease, unspecified - Anemia in chronic kidney disease 08/24/2020 19:05 [facility] TYPE: Emergency COMPLAINT: - WEAKNESS DIAGNOSES: - Allergy status to other drugs, medicaments and biological substances - Nicotine dependence, unspecified, uncomplicated - dope mixer (current) use of aspirin - Other longterm (current) drug therapy - End stage renal disease - Heart failure, unspecified - dope mixer (current) use of insulin - Type 2 [...] DIAGNOSES: - Chronic kidney disease, unspecified - [facility] (current) use of insulin - Allergy status [...] unspecified - Shortness of breath - Other crocheter (current) drug therapy - Type 2 diabetes mellitus with diabetic chronic kidney disease - dope mixer (current) use of aspirin - Heart failure, unspecified - Personal history of transient ischemic attack (TIA), and cerebral infarction without residual deficits 08/01/2020 23:03 [facility] TYPE: Emergency COMPLAINT: - CHEST PAIN DIAGNOSES: - Dependence on renal dialysis - [facility] (current) use of insulin - Chest pain, unspecified - Chronic kidney disease, stage 4 (severe) - Heart failure, unspecified - Hypertensive heart and chronic kidney disease with heart failure and stage 1 through stage 4 chronic kidney disease, or unspecified chronic kidney disease - Nicotine dependence, unspecified, uncomplicated - Other longterm (current) drug therapy - Type 2 diabetes mellitus with diabetic chronic kidney disease - Chronic obstructive pulmonary disease, unspecified 06/08/2020 06:43 [facility] TYPE: Emergency COMPLAINT: - WEAKNESS, ABD PAIN DIAGNOSES: - Type 2 diabetes mellitus with diabetic chronic kidney disease - Other longterm (current) drug therapy - dope mixer (current) use of insulin - Allergy status [...] INPATIENT VISIT TRACKING (12 MO.) 02/01/2021 09:58 [facility] [place] TYPE: Medical Surgical COMPLAINT: - FEVER; [...] tonsillar fossa 14. Atherosclerotic heart disease of [place] coronary artery without angina pectoris 15. Obstructive [...] Patient's noncompliance with renal dialysis 28. Other crocheter (current) drug therapy 29. dope mixer (current) use of aspirin 30. [facility] (current) use of insulin 31. dope mixer (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 of antithrombotics/antiplatelets 32. dope mixer (current) use of opiate analgesic 09/16/2020 01:23 [facility] [place] TYPE: Medical Surgical DIAGNOSES: - Anemia in [...] s/p heart cath, missed Dialysis 09/12/2020 01:22 [facility] [place] TYPE: Intensive Care DIAGNOSES: - Acute respiratory failure with hypoxia - Gastrointestinal hemorrhage, unspecified - Dependence on renal dialysis - Anemia, unspecified - Acute on chronic systolic (congestive) heart failure - End stage renal disease - Chronic kidney disease, stage 5 - Acute ischemic heart disease, unspecified - Non-ST elevation (NSTEMI) myocardial infarction 08/24/2020 22:50 [facility] TYPE: Internal Medicine DIAGNOSES: - End stage [...] mellitus with diabetic chronic kidney disease - [facility] (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 of antithrombotics/antiplatelets - Acidosis - Acute respiratory failure with hypoxia - Allergy status to other drugs, medicaments and biological substances - Chronic obstructive pulmonary disease, unspecified - Acquired absence of left leg below knee - Acute and chronic respiratory failure with hypoxia - Opioid dependence, uncomplicated - Contact with and (suspected) exposure to other viral communicable diseases - Other longterm (current) drug therapy - dope mixer (current) use of aspirin - Hypertensive heart and chronic kidney disease with heart failure and stage 1 through stage 4 chronic kidney disease, or unspecified chronic kidney disease - Type 2 diabetes mellitus with diabetic chronic kidney disease - Anemia in chronic kidney disease - Obstructive sleep apnea (adult) (pediatric) - Chronic obstructive pulmonary disease, unspecified - Other crocheter (current) drug therapy - Nicotine dependence, cigarettes, uncomplicated - dope mixer (current) use of insulin - Allergy status to other drugs, medicaments and biological substances - Dependence on wheelchair - [facility] (current) use of aspirin - Hyperkalemia - Anemia in chronic kidney disease - dope mixer (current) use of insulin - Acute systolic (congestive) heart failure - Anxiety disorder, unspecified - Opioid dependence, uncomplicated - Acute systolic (congestive) heart failure - dope mixer (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 of antithrombotics/antiplatelets - Nicotine dependence, cigarettes, uncomplicated - Hypertensive heart and chronic kidney disease with heart failure and stage 1 through stage 4 chronic kidney disease, or unspecified chronic kidney disease - Anxiety disorder, unspecified - Hyperkalemia - Acquired absence of left leg below knee - Dependence on wheelchair - Acidosis - Obstructive sleep apnea (adult) (pediatric) [email or web address]
[2021-06-04] MEDS ORDERED: CEPHALEXIN500 MG PO (21:34)
--- NOTE | 2021-06-06 12:05 | EKG ---
[facility] [address] [place] [address] Signed Sinus tachycardia with premature atrial complexes Left axis deviation Pulmonary disease pattern Septal infarct (cited on or before 11-SEP-2020) Abnormal ECG When compared with ECG of 24-MAY-2021 09:52, No significant change was found Confirmed by SAHIL GAMEZ MD ([id number]) on 06/06/2021 12:04:48 PM Electronically Signed By: SAHIL GAMEZ MD 06/06/21 1205 PATIENT NAME: PORFIRIO ZAVALA Electrocardiogram DATE OF : 40 PHYSICIAN: SAHIL GAMEZ MD REPORT #: [id number] REPORT IS CONFIDENTIAL AND NOT TO BE RELEASED WITHOUT AUTHORIZATION
== END 2021-06-04 22:26 | disposition home or self-care (01) ==
LOC: ED 18:37
DX: R41.82 Altered mental status, unspecified (principal); E11.22 Type 2 diabetes mellitus with diabetic chronic kidney disease; I13.0 Hypertensive heart and chronic kidney disease with heart failure and stage 1 through stage 4 chronic kidney disease, or unspecified chronic kidney disease; J44.9 Chronic obstructive pulmonary disease, unspecified; N18.4 Chronic kidney disease, stage 4 (severe); I50.9 Heart failure, unspecified; F17.200 Nicotine dependence, unspecified, uncomplicated; Z88.8 Allergy status to other drugs, medicaments and biological substances; Z79.4 Long term (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 of insulin; Z79.899 Other long term (current) drug therapy; Z79.82 Long term (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 of aspirin
CPT/HCPCS: 71045; 80053; 84484; 85025; 93005; 93010; 96374; 99285-25; G0480

== ENCOUNTER 2021-07-28 12:25 | Emergency (ER) | payer MEDICARE, OTHER ==
[~2021-07-28] VITALS: Ht 172.7 cm; Wt 72.6 kg
[~2021-07-28 12:25] MED LIST changes: +CEPHALEXIN500 MG PO
[2021-07-28] MEDS ORDERED: OXYCODONE HCL5 MG PO (12:53)
--- OUTSIDE RECORDS SUMMARY | 2021-07-28 13:02 | XMS ---
PreManage Notification: PORFIRIO ZAVALA Security Licensed Appraiser Events 1 event(s) in the past 18 months Most recent security events: Elopement at [facility] 05/24/2021 09:39 - Other Details: PATIENT LEFT AMA. 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 Care History Medical/Surgical 08/16/2020 [facility] - [facility]W CONTACTED PCP OFFICE- DISCUSSED ONGOING ED VISIT CONCERNS- - PATIENT WAS LAST SEEN BY PCP ON 08/11/2020, CANCELLED APT ON 08/14/2020 AND HAS A FOLLOW UP APT ON 08/24/2020. - [facility]CH [facility]-CARDIAC REHAB AND [facility]RELL-PULMONARY REHAB AT [facility] NOTIFIED OF ED VISIT 08/15/2020. 05/17/2020 [facility] Called PCP office to verify respiratory medication regimine. Patient has been prescribed DANA\T\#39;s in MDI and nebulizor form and triple therapy for mantanence inhaled medication. Patient\T\#39;s pharmacy history indicates that he is filling his inhaled medications. Will call patient\T\#39;s director medicare sales to offer inhaler training. 11/10/2019 [facility] - PLEASE MAKE SURE- ALL RECORDS ARE SENT TO DR BARTON-PATIENT BREAKER TENDER IN [place]. E.D. VISIT COUNT (12 MO.) 1 [facility] 14 [facility]. TOTAL 15 NOTE: Visits indicate total known visits. ED/UCC VISIT TRACKING (12 MO.) 07/28/2021 12:25 [facility] TYPE: Emergency COMPLAINT: - FACIAL SWELLING, DIFFICULTY SWALLOWING 06/04/2021 18:37 [facility] TYPE: Emergency COMPLAINT: - ALTERED MENTAL STATUS DIAGNOSES: - Type 2 diabetes mellitus with diabetic chronic kidney disease - Altered mental status, unspecified - Chronic kidney disease, stage 4 (severe) - Chronic obstructive pulmonary disease, unspecified - Heart failure, unspecified - Hypertensive heart and chronic kidney disease with heart failure and stage 1 through stage 4 chronic kidney disease, or unspecified chronic kidney disease - Other terminal superintendent (current) drug therapy - retirement (current) use of insulin - Nicotine dependence, unspecified, uncomplicated - terminal superintendent (current) use of aspirin - Allergy status to other drugs, medicaments and biological substances 05/24/2021 09:39 [facility] TYPE: Emergency [...] renal disease - Heart failure, unspecified - retirement (current) use of insulin - Hypertensive heart and chronic kidney disease with heart failure and stage 1 through stage 4 chronic kidney disease, or unspecified chronic kidney disease - Other jail (current) drug therapy - Hypertensive heart and [...] or unspecified chronic kidney disease - Other jail (current) drug therapy - terminal superintendent (current) use of insulin - Chronic kidney disease, stage 4 (severe) - Type 2 diabetes mellitus with diabetic chronic kidney disease - Nicotine dependence, unspecified, uncomplicated - Heart failure, unspecified - Allergy status to other drugs, medicaments and biological substances - Sepsis, unspecified organism - Chronic obstructive pulmonary disease, unspecified - terminal superintendent (current) use of aspirin 12/31/2020 14:51 [facility] TYPE: Emergency COMPLAINT: - BLEEDING FROM MOUTH DIAGNOSES: - Chronic obstructive pulmonary disease, unspecified - Personal history of nicotine dependence - Type 2 diabetes mellitus without complications - Malignant neoplasm of tonsil, unspecified - Malignant neoplasm of tonsil, unspecified - Heart failure, unspecified - retirement (current) use of insulin - Other jail (current) drug therapy - Other chronic diseases of tonsils and adenoids - Other chronic diseases of tonsils and adenoids - Chronic kidney disease, stage 4 (severe) - Allergy status to other drugs, medicaments and biological substances - Hypertensive heart and chronic kidney disease with heart failure and stage 1 through stage 4 chronic kidney disease, or unspecified chronic kidney disease - retirement (current) use of aspirin 12/18/2020 23:[address] [facility] [place] TYPE: Emergency COMPLAINT: - HEAD PAIN,MOUTH PAIN/ NON INJ DIAGNOSES: - terminal superintendent (current) use of opiate analgesic - Malignant neoplasm of pharynx, unspecified - Complete loss of teeth, unspecified cause, unspecified class - Type 2 diabetes mellitus with diabetic chronic kidney disease - Disorientation, unspecified - Acquired absence of left leg above knee - Dependence on renal dialysis - Headache, unspecified - Other jail (current) drug therapy - Chronic kidney disease, [...] [ECG] [EKG] - Acute sinusitis, unspecified - terminal superintendent (current) use of aspirin - Personal history of transient ischemic attack (TIA), and cerebral infarction without residual deficits - Presence of coronary angioplasty implant and graft - Chronic kidney disease, stage 4 (severe) - Allergy status to other drugs, medicaments and biological substances - Heart failure, unspecified - terminal superintendent (current) use of insulin 11/06/2020 11:28 [facility] [place] TYPE: Emergency COMPLAINT: - SPITTING UP BLOOD DIAGNOSES: - retirement (current) use of aspirin - Allergy status to other drugs, medicaments and biological substances - retirement (current) use of insulin - Heart failure, unspecified - Other terminal superintendent (current) drug therapy - Chronic obstructive pulmonary [...] mellitus with diabetic chronic kidney disease - retirement (current) use of insulin - Personal history of nicotine dependence - Heart failure, unspecified - Chronic kidney disease, stage 4 (severe) - Hypertensive heart and chronic kidney disease with heart failure and stage 1 through stage 4 chronic kidney disease, or unspecified chronic kidney disease - Other jail (current) drug therapy - Allergy status to other drugs, medicaments and biological substances - terminal superintendent (current) use of aspirin - Right lower quadrant pain - Postprocedural hematoma of a circulatory system organ or structure following a cardiac catheterization - Personal history of transient ischemic attack (TIA), and cerebral infarction without residual deficits 09/15/2020 20:28 [facility] TYPE: Emergency COMPLAINT: - SOB DIAGNOSES: - retirement (current) use of insulin - Hypertensive heart and chronic kidney disease with heart failure and stage 1 through stage 4 chronic kidney disease, or unspecified chronic kidney disease - Allergy status to other drugs, medicaments and biological substances - Heart failure, unspecified - Personal history of transient ischemic attack (TIA), and cerebral infarction without residual deficits - retirement (current) use of aspirin - Chronic obstructive pulmonary disease, unspecified - Type 2 diabetes mellitus with diabetic chronic kidney disease - Anemia, unspecified - Dyspnea, unspecified - Postprocedural hematoma of skin and subcutaneous tissue following other procedure - Other terminal superintendent (current) drug therapy - Personal history of [...] disease, or unspecified chronic kidney disease - terminal superintendent (current) use of insulin - Type 2 diabetes mellitus with diabetic chronic kidney disease - Personal history of nicotine dependence - Other jail (current) drug therapy - Allergy status to other drugs, medicaments and biological substances - Chronic kidney disease, stage 4 (severe) - Gastrointestinal hemorrhage, unspecified - retirement (current) use of aspirin - Allergy status to other drugs, medicaments and biological substances - Chronic obstructive pulmonary disease, unspecified 08/24/2020 22:50 [facility] TYPE: Emergency DIAGNOSES: - End stage renal [...] - Nicotine dependence, unspecified, uncomplicated - terminal superintendent (current) use of aspirin - Other terminal superintendent (current) drug therapy - End stage renal disease - Heart failure, unspecified - terminal superintendent (current) use of insulin - Type 2 [...] - Chronic kidney disease, unspecified - terminal superintendent (current) use of insulin - Allergy status [...] unspecified - Shortness of breath - Other jail (current) drug therapy - Type 2 diabetes mellitus with diabetic chronic kidney disease - terminal superintendent (current) use of aspirin - Heart failure, unspecified - Personal history of transient ischemic attack (TIA), and cerebral infarction without residual deficits 08/01/2020 23:03 [facility] TYPE: Emergency COMPLAINT: - CHEST PAIN DIAGNOSES: - Dependence on renal dialysis - terminal superintendent (current) use of insulin - Chest pain, [...] disease - Chronic obstructive pulmonary disease, unspecified INPATIENT VISIT TRACKING (12 MO.) 02/01/2021 09:58 [facility] TYPE: Medical Surgical COMPLAINT: - FEVER; [...] tonsillar fossa 14. Atherosclerotic heart disease of three affiliated coronary artery without angina pectoris 15. Obstructive [...] Patient's noncompliance with renal dialysis 28. Other terminal superintendent (current) drug therapy 29. retirement (current) use of aspirin 30. retirement (current) use of insulin 31. retirement (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 of antithrombotics/antiplatelets 32. retirement (current) use of opiate analgesic 09/16/2020 01:23 [facility] [place] TYPE: Medical Surgical DIAGNOSES: - [...] s/p heart cath, missed Dialysis [facility] DIAGNOSES: - Acute respiratory failure with hypoxia - Gastrointestinal hemorrhage, unspecified - Dependence on renal dialysis - Anemia, unspecified - Acute on chronic systolic (congestive) heart failure - End stage renal disease - Chronic kidney disease, stage 5 - Acute ischemic heart disease, unspecified - Non-ST elevation (NSTEMI) myocardial infarction 08/24/2020 22:50 [facility] TYPE: Internal Medicine DIAGNOSES: - End stage [...] mellitus with diabetic chronic kidney disease - retirement (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 of antithrombotics/antiplatelets - Acidosis - Acute respiratory failure with hypoxia - Allergy status to other drugs, medicaments and biological substances - Chronic obstructive pulmonary disease, unspecified - Acquired absence of left leg below knee - Acute and chronic respiratory failure with hypoxia - Opioid dependence, uncomplicated - Contact with and (suspected) exposure to other viral communicable diseases - Other terminal superintendent (current) drug therapy - retirement (current) use of aspirin - Hypertensive heart and chronic kidney disease with heart failure and stage 1 through stage 4 chronic kidney disease, or unspecified chronic kidney disease - Type 2 diabetes mellitus with diabetic chronic kidney disease - Anemia in chronic kidney disease - Obstructive sleep apnea (adult) (pediatric) - Chronic obstructive pulmonary disease, unspecified - Other terminal superintendent (current) drug therapy - Nicotine dependence, cigarettes, uncomplicated - retirement (current) use of insulin - Allergy status to other drugs, medicaments and biological substances - Dependence on wheelchair - retirement (current) use of aspirin - Hyperkalemia - Anemia in chronic kidney disease - terminal superintendent (current) use of insulin - Acute systolic (congestive) heart failure - Anxiety disorder, unspecified - Opioid dependence, uncomplicated - Acute systolic (congestive) heart failure - terminal superintendent (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 of antithrombotics/antiplatelets - Nicotine dependence, cigarettes, uncomplicated - Hypertensive heart and chronic kidney disease with heart failure and stage 1 through stage 4 chronic kidney disease, or unspecified chronic kidney disease - Anxiety disorder, unspecified - Hyperkalemia - Acquired absence of left leg below knee - Dependence on wheelchair - Acidosis - Obstructive sleep apnea (adult) (pediatric) [email or web address]
[2021-07-28] MEDS ORDERED: CEPHALEXIN250 MG/5 M PO (13:34)
== END 2021-07-28 13:42 | disposition home or self-care (01) ==
LOC: ED 12:25
DX: L03.211 Cellulitis of face (principal); E11.22 Type 2 diabetes mellitus with diabetic chronic kidney disease; I13.0 Hypertensive heart and chronic kidney disease with heart failure and stage 1 through stage 4 chronic kidney disease, or unspecified chronic kidney disease; J44.9 Chronic obstructive pulmonary disease, unspecified; N18.4 Chronic kidney disease, stage 4 (severe); F17.200 Nicotine dependence, unspecified, uncomplicated; Z88.8 Allergy status to other drugs, medicaments and biological substances; Z79.899 Other long term (current) drug therapy; Z79.4 Long term (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 of insulin; Z79.82 Long term (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 of aspirin
CPT/HCPCS: 99283

== ENCOUNTER 2021-09-28 16:20 | Emergency (ER) | payer MEDICARE, OTHER ==
[~2021-09-28] VITALS: Ht 172.7 cm; Wt 72.6 kg
[~2021-09-28 16:20] MED LIST changes: +CEPHALEXIN250 MG/5 M PO; +OXYCODONE HCL5 MG PO
--- OUTSIDE RECORDS SUMMARY | 2021-09-28 16:22 | XMS ---
PreManage Notification: PORFIRIO ZAVALA Security Him Director Events 1 event(s) in the past 18 months Most recent security events: Elopement at [facility] 05/24/2021 09:39 - Other Details: PATIENT LEFT AMA. 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 Care History Medical/Surgical 08/16/2020 [facility] - [facility]W CONTACTED PCP OFFICE- DISCUSSED ONGOING ED VISIT CONCERNS- - PATIENT WAS LAST SEEN BY PCP ON 08/11/2020, CANCELLED APT ON 08/14/2020 AND HAS A FOLLOW UP APT ON 08/24/2020. - [facility]-CARDIAC REHAB AND [facility]-PULMONARY REHAB AT [facility] NOTIFIED OF ED VISIT 08/15/2020. 05/17/2020 [facility] Called PCP office to verify respiratory medication regimine. Patient has been prescribed DANA\T\#39;s in MDI and nebulizor form and triple therapy for mantanence inhaled medication. Patient\T\#39;s pharmacy history indicates that he is filling his inhaled medications. Will call patient\T\#39;s career placement services counselor to offer inhaler training. 11/10/2019 [facility] - PLEASE MAKE SURE- ALL RECORDS ARE SENT TO DR BARTON-PATIENT GROUND SERVICES INSTRUCTOR IN [place]. E.D. VISIT COUNT (12 MO.) 9 [facility]. TOTAL 9 NOTE: Visits indicate total known visits. ED/UCC VISIT TRACKING (12 MO.) 09/28/2021 16:20 [facility] TYPE: Emergency COMPLAINT: - CHEST PAIN 07/28/2021 12:25 [facility] TYPE: Emergency COMPLAINT: - FACIAL SWELLING, DIFFICULTY SWALLOWING DIAGNOSES: - Cellulitis of face - alf (current) use of aspirin - Nicotine dependence, unspecified, uncomplicated - alf (current) use of insulin - Hypertensive heart and chronic kidney disease with heart failure and stage 1 through stage 4 chronic kidney disease, or unspecified chronic kidney disease - Allergy status to other drugs, medicaments and biological substances - Other neuropsychologist (current) drug therapy - Chronic kidney disease, stage 4 (severe) - Type 2 diabetes mellitus with diabetic chronic kidney disease - Chronic obstructive pulmonary disease, unspecified 06/04/2021 18:37 [facility] TYPE: Emergency [...] or unspecified chronic kidney disease - Other skilled nursing (current) drug therapy - alf (current) use of insulin - Nicotine dependence, unspecified, uncomplicated - alf (current) use of aspirin - Allergy status [...] renal disease - Heart failure, unspecified - alf (current) use of insulin - Hypertensive heart and chronic kidney disease with heart failure and stage 1 through stage 4 chronic kidney disease, or unspecified chronic kidney disease - Other neuropsychologist (current) drug therapy - Hypertensive heart and [...] or unspecified chronic kidney disease - Other skilled nursing (current) drug therapy - alf (current) use of insulin - Chronic kidney disease, stage 4 (severe) - Type 2 diabetes mellitus with diabetic chronic kidney disease - Nicotine dependence, unspecified, uncomplicated - Heart failure, unspecified - Allergy status to other drugs, medicaments and biological substances - Sepsis, unspecified organism - Chronic obstructive pulmonary disease, unspecified - alf (current) use of aspirin 12/31/2020 14:51 [facility] TYPE: Emergency COMPLAINT: - BLEEDING FROM MOUTH DIAGNOSES: - Chronic obstructive pulmonary disease, unspecified - Personal history of nicotine dependence - Type 2 diabetes mellitus without complications - Malignant neoplasm of tonsil, unspecified - Malignant neoplasm of tonsil, unspecified - Heart failure, unspecified - shoe worker (current) use of insulin - Other neuropsychologist (current) drug therapy - Other chronic diseases of tonsils and adenoids - Other chronic diseases of tonsils and adenoids - Chronic kidney disease, stage 4 (severe) - Allergy status to other drugs, medicaments and biological substances - Hypertensive heart and chronic kidney disease with heart failure and stage 1 through stage 4 chronic kidney disease, or unspecified chronic kidney disease - shoe worker (current) use of aspirin 12/18/2020 23:56 [facility] TYPE: Emergency COMPLAINT: - HEAD PAIN,MOUTH PAIN/ NON INJ DIAGNOSES: - alf (current) use of opiate analgesic - Malignant neoplasm of pharynx, unspecified - Complete loss of teeth, unspecified cause, unspecified class - Type 2 diabetes mellitus with diabetic chronic kidney disease - Disorientation, unspecified - Acquired absence of left leg above knee - Dependence on renal dialysis - Headache, unspecified - Other neuropsychologist (current) drug therapy - Chronic kidney disease, [...] [ECG] [EKG] - Acute sinusitis, unspecified - alf (current) use of aspirin - Personal history of transient ischemic attack (TIA), and cerebral infarction without residual deficits - Presence of coronary angioplasty implant and graft - Chronic kidney disease, stage 4 (severe) - Allergy status to other drugs, medicaments and biological substances - Heart failure, unspecified - alf (current) use of insulin 11/06/2020 11:28 [facility] TYPE: Emergency COMPLAINT: - SPITTING UP BLOOD DIAGNOSES: - alf (current) use of aspirin - Allergy status to other drugs, medicaments and biological substances - alf (current) use of insulin - Heart failure, unspecified - Other skilled nursing (current) drug [...] mellitus with diabetic chronic kidney disease - shoe worker (current) use of insulin - Personal history of nicotine dependence - Heart failure, unspecified - Chronic kidney disease, stage 4 (severe) - Hypertensive heart and chronic kidney disease with heart failure and stage 1 through stage 4 chronic kidney disease, or unspecified chronic kidney disease - Other skilled nursing (current) drug therapy - Allergy status to other drugs, medicaments and biological substances - shoe worker (current) use of aspirin - Right lower quadrant pain - Postprocedural hematoma of a circulatory system organ or structure following a cardiac catheterization - Personal history of transient ischemic attack (TIA), and cerebral infarction without residual deficits INPATIENT VISIT TRACKING (12 MO.) 02/01/2021 09:58 [facility] COMPLAINT: - FEVER; ENCEPHALOPATHY; [...] tonsillar fossa 14. Atherosclerotic heart disease of [place] coronary artery without angina pectoris 15. Obstructive [...] Patient's noncompliance with renal dialysis 28. Other neuropsychologist (current) drug therapy 29. shoe worker (current) use of aspirin 30. alf (current) use of insulin 31. alf (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 of antithrombotics/antiplatelets 32. alf (current) use of opiate analgesic [email or web address]
--- NOTE | 2021-09-29 18:06 | EKG ---
[facility] [address] [place] [address] Signed Sinus tachycardia Septal infarct , age undetermined Abnormal ECG No previous ECGs available Confirmed by DARSHAN LEAL MD ([id number] on 09/29/2021 6:06:00 PM Electronically Signed By: DARSHAN LEAL MD 09/29/211805 PATIENT NAME: PORFIRIO ZAVALA Electrocardiogram DATE OF : 40 PHYSICIAN: DARSHAN LEAL MD REPORT #: [id number] REPORT IS CONFIDENTIAL AND NOT TO BE RELEASED WITHOUT AUTHORIZATION
== END 2021-09-28 19:45 | disposition home or self-care (01) ==
LOC: ED 16:20
DX: R07.9 Chest pain, unspecified (principal); I13.2 Hypertensive heart and chronic kidney disease with heart failure and with stage 5 chronic kidney disease, or end stage renal disease; I50.9 Heart failure, unspecified; J44.9 Chronic obstructive pulmonary disease, unspecified; N18.5 Chronic kidney disease, stage 5; E11.22 Type 2 diabetes mellitus with diabetic chronic kidney disease; F17.200 Nicotine dependence, unspecified, uncomplicated; Z88.8 Allergy status to other drugs, medicaments and biological substances; Z79.899 Other long term (current) drug therapy; Z79.82 Long term (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 of aspirin
CPT/HCPCS: 71045; 80053; 83735; 84484; 85025; 85610; 93005; 93010; 99285-25

== ENCOUNTER 2021-10-01 15:32 | Emergency (ER) | payer OTHER, MEDICARE ==
[~2021-10-01] VITALS: Ht 172.7 cm; Wt 67.3 kg
--- OUTSIDE RECORDS SUMMARY | 2021-10-01 15:34 | XMS ---
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 CRITERIA MET - [facility] - 2 Visits in 30 Days - PDMP - [facility] - Has Care Guidelines CARE PROVIDERS ANA PAULA [facility] 05/09/2020-Current [facility]: [phone] [facility]Rodney Van PHONE: [phone] Alina Clark Police Radio Dispatcher/Work Measurement Engineer 08/01/2021-Current PHONE: [phone] [facility] has no Care Guidelines for this patient. Care History Medical/Surgical 08/16/2020 [facility] - CHW CONTACTED PCP OFFICE- DISCUSSED ONGOING ED VISIT CONCERNS- - PATIENT WAS LAST SEEN BY PCP ON 08/11/2020, CANCELLED APT ON 08/14/2020 AND HAS A FOLLOW UP APT ON 08/24/2020. - [facility]-CARDIAC REHAB AND [facility]PULMONARY REHAB AT [facility] NOTIFIED OF ED VISIT 08/15/2020. 05/17/2020 [facility] Called PCP office to verify respiratory medication regimine. Patient has been prescribed DANA\T\#39;s in MDI and nebulizor form and triple therapy for mantanence inhaled medication. Patient\T\#39;s pharmacy history indicates that he is filling his inhaled medications. Will call patient\T\#39;s wild animal caretaker to offer inhaler training. 11/10/2019 [facility] - PLEASE MAKE SURE- ALL RECORDS ARE SENT TO DR BARTON-PATIENT RESOLUTE PROFESSIONAL IN [place]. E.D. VISIT COUNT (12 MO.) 9 [facility]. TOTAL 9 NOTE: Visits indicate total known visits. ED/UCC VISIT TRACKING (12 MO.) 10/01/2021 15:33 [facility] [place] TYPE: Emergency COMPLAINT: - FALL, R HIP PAIN 09/28/2021 16:20 [facility] [place] TYPE: Emergency COMPLAINT: - CHEST PAIN 07/28/2021 12:25 [facility] [place] TYPE: Emergency COMPLAINT: - FACIAL SWELLING, DIFFICULTY SWALLOWING DIAGNOSES: - Cellulitis of face - exterminator helper (current) use of aspirin - Nicotine dependence, unspecified, uncomplicated - exterminator helper (current) use of insulin - Hypertensive heart and chronic kidney disease with heart failure and stage 1 through stage 4 chronic kidney disease, or unspecified chronic kidney disease - Allergy status to other drugs, medicaments and biological substances - Other halfway (current) drug therapy - Chronic kidney disease, [...] or unspecified chronic kidney disease - Other halfway (current) drug therapy - exterminator helper (current) use of insulin - Nicotine dependence, unspecified, uncomplicated - exterminator helper (current) use of aspirin - Allergy status [...] renal disease - Heart failure, unspecified - exterminator helper (current) use of insulin - Hypertensive heart and chronic kidney disease with heart failure and stage 1 through stage 4 chronic kidney disease, or unspecified chronic kidney disease - Other halfway (current) drug therapy - Hypertensive heart and [...] or unspecified chronic kidney disease - Other halfway (current) drug therapy - exterminator helper (current) use of insulin - Chronic kidney disease, stage 4 (severe) - Type 2 diabetes mellitus with diabetic chronic kidney disease - Nicotine dependence, unspecified, uncomplicated - Heart failure, unspecified - Allergy status to other drugs, medicaments and biological substances - Sepsis, unspecified organism - Chronic obstructive pulmonary disease, unspecified - correction (current) use of aspirin 12/31/2020 14:51 [facility] [place] TYPE: Emergency COMPLAINT: - BLEEDING FROM MOUTH DIAGNOSES: - Chronic obstructive pulmonary disease, unspecified - Personal history of nicotine dependence - Type 2 diabetes mellitus without complications - Malignant neoplasm of tonsil, unspecified - Malignant neoplasm of tonsil, unspecified - Heart failure, unspecified - exterminator helper (current) use of insulin - Other halfway (current) drug therapy - Other chronic diseases of tonsils and adenoids - Other chronic diseases of tonsils and adenoids - Chronic kidney disease, stage 4 (severe) - Allergy status to other drugs, medicaments and biological substances - Hypertensive heart and chronic kidney disease with heart failure and stage 1 through stage 4 chronic kidney disease, or unspecified chronic kidney disease - exterminator helper (current) use of aspirin 12/18/2020 23:56 [facility] [place] TYPE: Emergency COMPLAINT: - HEAD PAIN,MOUTH PAIN/ NON INJ DIAGNOSES: - exterminator helper (current) use of opiate analgesic - Malignant neoplasm of pharynx, unspecified - Complete loss of teeth, unspecified cause, unspecified class - Type 2 diabetes mellitus with diabetic chronic kidney disease - Disorientation, unspecified - Acquired absence of left leg above knee - Dependence on renal dialysis - Headache, unspecified - Other halfway (current) drug therapy - Chronic kidney disease, [...] [ECG] [EKG] - Acute sinusitis, unspecified - correction (current) use of aspirin - Personal history of transient ischemic attack (TIA), and cerebral infarction without residual deficits - Presence of coronary angioplasty implant and graft - Chronic kidney disease, stage 4 (severe) - Allergy status to other drugs, medicaments and biological substances - Heart failure, unspecified - exterminator helper (current) use of insulin 11/06/2020 11:28 [facility] [place] TYPE: Emergency COMPLAINT: - SPITTING UP BLOOD DIAGNOSES: - correction (current) use of aspirin - Allergy status to other drugs, medicaments and biological substances - correction (current) use of insulin - Heart failure, unspecified - Other halfway (current) drug therapy - Chronic obstructive pulmonary disease, unspecified - Hypertensive heart disease with heart failure - Type 2 diabetes mellitus without complications - Hemoptysis - Allergy status to other drugs, medicaments and biological substances INPATIENT VISIT TRACKING (12 MO.) 02/01/2021 09:58 [facility] [place] TYPE: Medical Surgical COMPLAINT: - FEVER; ENCEPHALOPATHY; [...] tonsillar fossa 14. Atherosclerotic heart disease of [place] coronary artery without angina pectoris 15. Obstructive [...] Patient's noncompliance with renal dialysis 28. Other intermediate frame tender (current) drug therapy 29. exterminator helper (current) use of aspirin 30. exterminator helper (current) use of insulin 31. exterminator helper (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 of antithrombotics/antiplatelets 32. exterminator helper (current) use of opiate analgesic [email or web address]
--- NOTE | 2021-10-02 07:50 | EKG ---
[facility] [address] [place], [place] [address] Signed Normal sinus rhythm with sinus arrhythmia Low voltage QRS Borderline ECG When compared with ECG of 28-SEP-2021 16:20, No significant change was found Confirmed by DARSHAN LEAL MD ([id number]) on 10/02/2021 7:50:31 AM Electronically Signed By: DARSHAN LEAL MD 10/02/21 0750 PATIENT NAME: PORFIRIO ZAVALA Electrocardiogram DATE OF : 40 PHYSICIAN: DARSHAN LEAL MD REPORT #: [id number] REPORT IS CONFIDENTIAL AND NOT TO BE RELEASED WITHOUT AUTHORIZATION
== END 2021-10-01 19:08 | disposition home or self-care (01) ==
LOC: ED 15:32
DX: S00.93XA Contusion of unspecified part of head, initial encounter (principal); I13.2 Hypertensive heart and chronic kidney disease with heart failure and with stage 5 chronic kidney disease, or end stage renal disease; E11.22 Type 2 diabetes mellitus with diabetic chronic kidney disease; N18.5 Chronic kidney disease, stage 5; J44.9 Chronic obstructive pulmonary disease, unspecified; Z86.73 Personal history of transient ischemic attack (TIA), and cerebral infarction without residual deficits; F17.200 Nicotine dependence, unspecified, uncomplicated; Z88.8 Allergy status to other drugs, medicaments and biological substances; Z79.899 Other long term (current) drug therapy; Z99.2 Dependence on renal dialysis; Z79.4 Long term (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 of insulin; Z79.82 Long term (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 of aspirin; W01.10XA Fall on same level from slipping, tripping and stumbling with subsequent striking against unspecified object, initial encounter
CPT/HCPCS: 70450; 71045; 72170; 80053; 81001; 84484; 85025; 93005; 93010; 99285-25; U0003

== ENCOUNTER 2021-10-08 18:18 | Emergency (ER) | payer MEDICARE, OTHER ==
[~2021-10-08] VITALS: Ht 172.7 cm; Wt 62.1 kg
--- OUTSIDE RECORDS SUMMARY | 2021-10-08 18:20 | XMS ---
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 CRITERIA MET - [facility] - Has Care Guidelines - 6 ED Visits in 6 Months - [facility] - 2 Visits in 30 Days - [facility] CARE PROVIDERS JESSENIA GOSS [facility] 05/09/2020-Current [facility]: [phone] [facility] HARDIK Van PHONE: [phone] Alina Clark Shed Workers Supervisor/Service Technician 08/01/2021-Current PHONE: [phone] [facility] has no Care Guidelines for this patient. Care History Medical/Surgical 10/02/2021 [facility] - W CONTACTED PAIN MANAGEMENT PHYSICIAN FOR PATIENT: [facility]- [phone]. PATIENT CURRENTLY ON A PAIN CONTRACT OF May. - CHW CONTACTED PATIENT-PATIENT DAUGHTER OLIVER ANSWERED- SHE STATED THEY ARE PROBABLY NOT GOING TO CONTINUE WITH THE [facility] PAIN MANAGEMENT DUE TO THE DISTANCE. - PATIENT WAREHOUSE DELIVERY MANAGER- DR BARTON- NOTIFIED OF RECENT ED VISITS - PATIENT HAS DR TERRY AND DR SHANE ONCOLOGIST. - PATIENT DAUGHTER OLIVER STATED PATIENT IS WAITING TO BE SEEN BY DR GARDNER FOR G TUBE PLACEMENT. - REQUESTED RECENT ED VISIT CHARTS TO BE SENT TO DR BARTON AND PCP DR GOSS IMMEDIATELY. PATIENT IS BEING SEEN TODAY BY PCP DR GOSS. - PAIN CONTRACT UPLOADED TO [facility] 08/16/2020 [facility] - CHW CONTACTED PCP OFFICE- DISCUSSED ONGOING ED VISIT CONCERNS- - PATIENT WAS LAST SEEN BY PCP ON 08/11/2020, CANCELLED APT ON 08/14/2020 AND HAS A FOLLOW UP APT ON 08/24/2020. - [facility]CARDIAC REHAB AND [facility]RELL-PULMONARY REHAB AT [facility] NOTIFIED OF ED VISIT 08/15/2020. 05/17/2020 [facility] Called PCP office to verify respiratory medication regimine. Patient has been prescribed DANA\T\#39;s in MDI and nebulizor form and triple therapy for mantanence inhaled medication. Patient\T\#39;s pharmacy history indicates that he is filling his inhaled medications. Will call patient\T\#39;s ocular care aide to offer inhaler training. E.D. VISIT COUNT (12 MO.) 10 [facility] TOTAL 10 NOTE: Visits indicate total known visits. ED/UCC VISIT TRACKING (12 MO.) 10/08/2021 18:19 [facility] [place] TYPE: Emergency COMPLAINT: - VOMITING 10/01/2021 15:33 [facility] [place] TYPE: Emergency COMPLAINT: - FALL, R HIP PAIN/INJ DIAGNOSES: - Allergy status to other drugs, medicaments and biological substances - parts counterman (current) use of insulin - Other mcfp (current) drug therapy - Chronic kidney disease, stage 5 - Weakness - Type 2 diabetes mellitus with diabetic chronic kidney disease - Personal history of transient ischemic attack (TIA), and cerebral infarction without residual deficits - Hypertensive heart and chronic kidney disease with heart failure and with stage 5 chronic kidney disease, or end stage renal disease - correction (current) use of aspirin - Nicotine dependence, unspecified, uncomplicated - Dependence on renal dialysis - Fall on same level from slipping, tripping and stumbling with subsequent striking against unspecified object, initial encounter - Contusion of unspecified part of head, initial encounter - Chronic obstructive pulmonary disease, unspecified 09/28/2021 16:20 [facility] [place] TYPE: Emergency COMPLAINT: - CHEST PAIN DIAGNOSES: - Chronic obstructive pulmonary disease, unspecified - Hypertensive heart and chronic kidney disease with heart failure and with stage 5 chronic kidney disease, or end stage renal disease - Chest pain, unspecified - Other mcfp (current) drug therapy - Allergy status to other drugs, medicaments and biological substances - Heart failure, unspecified - Nicotine dependence, unspecified, uncomplicated - Chronic kidney disease, stage 5 - Type 2 diabetes mellitus with diabetic chronic kidney disease - Epigastric pain - parts counterman (current) use of aspirin 07/28/2021 12:25 [facility] [place] TYPE: Emergency COMPLAINT: - FACIAL SWELLING, DIFFICULTY SWALLOWING DIAGNOSES: - Cellulitis of face - parts counterman (current) use of aspirin - Nicotine dependence, unspecified, uncomplicated - correction (current) use of insulin - Hypertensive heart and chronic kidney disease with heart failure and stage 1 through stage 4 chronic kidney disease, or unspecified chronic kidney disease - Allergy status to other drugs, medicaments and biological substances - Other assistant terminal manager (current) drug therapy - Chronic kidney disease, [...] or unspecified chronic kidney disease - Other assistant terminal manager (current) drug therapy - parts counterman (current) use of insulin - Nicotine dependence, unspecified, uncomplicated - correction [...] renal disease - Heart failure, unspecified - parts counterman (current) use of insulin - Hypertensive heart and chronic kidney disease with heart failure and stage 1 through stage 4 chronic kidney disease, or unspecified chronic kidney disease - Other assistant terminal manager (current) drug therapy - Hypertensive heart and [...] or unspecified chronic kidney disease - Other assistant terminal manager (current) drug therapy - correction (current) use of insulin - Chronic kidney disease, stage 4 (severe) - Type 2 diabetes mellitus with diabetic chronic kidney disease - Nicotine dependence, unspecified, uncomplicated - Heart failure, unspecified - Allergy status to other drugs, medicaments and biological substances - Sepsis, unspecified organism - Chronic obstructive pulmonary disease, unspecified - parts counterman (current) use of aspirin 12/31/2020 14:51 [facility] [place] TYPE: Emergency COMPLAINT: - BLEEDING FROM MOUTH DIAGNOSES: - Chronic obstructive pulmonary disease, unspecified - Personal history of nicotine dependence - Type 2 diabetes mellitus without complications - Malignant neoplasm of tonsil, unspecified - Malignant neoplasm of tonsil, unspecified - Heart failure, unspecified - correction (current) use of insulin - Other mcfp (current) drug therapy - Other chronic diseases of tonsils and adenoids - Other chronic diseases of tonsils and adenoids - Chronic kidney disease, stage 4 (severe) - Allergy status to other drugs, medicaments and biological substances - Hypertensive heart and chronic kidney disease with heart failure and stage 1 through stage 4 chronic kidney disease, or unspecified chronic kidney disease - parts counterman (current) use of aspirin 12/18/2020 23:56 [facility] [place] TYPE: Emergency COMPLAINT: - HEAD PAIN,MOUTH PAIN/ NON INJ DIAGNOSES: - parts counterman (current) use of opiate analgesic - Malignant neoplasm of pharynx, unspecified - Complete loss of teeth, unspecified cause, unspecified class - Type 2 diabetes mellitus with diabetic chronic kidney disease - Disorientation, unspecified - Acquired absence of left leg above knee - Dependence on renal dialysis - Headache, unspecified - Other mcfp (current) drug therapy - Chronic kidney disease, [...] biological substances - Heart failure, unspecified - parts counterman (current) use of insulin 11/06/2020 11:28 [facility] [place] TYPE: Emergency COMPLAINT: - SPITTING UP BLOOD DIAGNOSES: - correction (current) use of aspirin - Allergy status to other drugs, medicaments and biological substances - parts counterman (current) use of insulin - Heart failure, unspecified - Other mcfp (current) drug therapy - Chronic obstructive pulmonary disease, unspecified - Hypertensive heart disease with heart failure - Type 2 diabetes mellitus without complications - Hemoptysis - Allergy status to other drugs, medicaments and biological substances INPATIENT VISIT TRACKING (12 MO.) 02/01/2021 09:58 [facility] [place] TYPE: Medical Surgical COMPLAINT: - FEVER; ENCEPHALOPATHY; [...] tonsillar fossa 14. Atherosclerotic heart disease of [place] coronary artery without angina pectoris 15. Obstructive [...] Patient's noncompliance with renal dialysis 28. Other mcfp (current) drug therapy 29. correction (current) use of aspirin 30. parts counterman (current) use of insulin 31. parts counterman (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 of antithrombotics/antiplatelets 32. correction (current) use of opiate analgesic [email or web address]
== END 2021-10-08 22:50 | disposition home or self-care (01) ==
LOC: ED 18:18
DX: R04.2 Hemoptysis (principal); E11.22 Type 2 diabetes mellitus with diabetic chronic kidney disease; N18.5 Chronic kidney disease, stage 5; I13.2 Hypertensive heart and chronic kidney disease with heart failure and with stage 5 chronic kidney disease, or end stage renal disease; J44.9 Chronic obstructive pulmonary disease, unspecified; I50.9 Heart failure, unspecified; F17.200 Nicotine dependence, unspecified, uncomplicated; Z79.899 Other long term (current) drug therapy; Z79.82 Long term (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 of aspirin
CPT/HCPCS: 71045; 71046; 80053; 85025; 85610; 85730; 99284-25

== ENCOUNTER 2021-10-21 04:39 | Emergency (ER) | payer MEDICARE, OTHER ==
[~2021-10-21] VITALS: Ht 172.7 cm; Wt 140.0 kg
--- OUTSIDE RECORDS SUMMARY | 2021-10-21 04:46 | XMS ---
PreManage Notification: PORFIRIO ZAVALA Security Edi Architect Events 1 event(s) in the past 18 months Most recent security events: Elopement at [facility] 05/24/2021 09:39 - Other Details: PATIENT LEFT AMA. CRITERIA MET - 6 ED Visits in 6 Months - [facility] - Has Care Guidelines - [facility] - 2 Visits in 30 Days CARE PROVIDERS ANA PAULA [facility] 05/09/2020-Current PHONE: [phone] [facility] HARDIK Van PHONE: [phone] Alina Clark Health Management Consultant/Marketing Project Specialist 10/01/2021-Current PHONE: [phone] [facility] has no Care Guidelines for this patient. Care History Medical/Surgical 10/02/2021 [facility] - W CONTACTED PAIN MANAGEMENT PHYSICIAN FOR PATIENT: [facility]- [phone]. PATIENT CURRENTLY ON A PAIN CONTRACT OF May. - [facility] CONTACTED PATIENT-PATIENT DAUGHTER OLIVER ANSWERED- SHE STATED THEY ARE PROBABLY NOT GOING TO CONTINUE WITH THE [place] [facility]IN MANAGEMENT DUE TO THE DISTANCE. 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 - [facility]UL[facility] AT [facility] NOTIFIED OF ED VISIT 08/15/2020. 05/17/2020 [facility] Called PCP office to verify respiratory medication regimine. Patient has been prescribed DANA\T\#39;s in MDI and nebulizor form and triple therapy for mantanence inhaled medication. Patient\T\#39;s pharmacy history indicates that he is filling his inhaled medications. Will call patient\T\#39;s critical care registered nurse to offer inhaler training. E.D. VISIT COUNT (12 MO.) [facility] NOTE: Visits indicate total known visits. ED/UCC VISIT TRACKING (12 MO.) 10/21/2021 04:40 [facility] TYPE: Emergency COMPLAINT: - BLEEDING FROM MOUTH 10/09/2021 22:28 [facility] Maria Isabel [place] TYPE: Emergency DIAGNOSES: - Mouth Injury - Malignant neoplasm of oropharynx, unspecified - Malignant neoplasm of tonsil, unspecified - Hemoptysis (<120cc Per Day) 10/08/2021 18:19 [facility] TYPE: Emergency COMPLAINT: - VOMITING DIAGNOSES: - Hypertensive heart and chronic kidney disease with heart failure and with stage 5 chronic kidney disease, or end stage renal disease - Heart failure, unspecified - Hemoptysis - halfway (current) use of aspirin - Nicotine dependence, unspecified, uncomplicated - Type 2 diabetes mellitus with diabetic chronic kidney disease - Chronic obstructive pulmonary disease, unspecified - Other intermediate (current) drug therapy - Chronic kidney disease, stage 5 10/01/2021 15:33 [facility] TYPE: Emergency COMPLAINT: - FALL, R HIP PAIN/INJ DIAGNOSES: - Allergy status to other drugs, medicaments and biological substances - halfway (current) use of insulin - Other still operator gin (current) drug therapy - Chronic kidney disease, stage 5 - Weakness - Type 2 diabetes mellitus with diabetic chronic kidney disease - Personal history of transient ischemic attack (TIA), and cerebral infarction without residual deficits - Hypertensive heart and chronic kidney disease with heart failure and with stage 5 chronic kidney disease, or end stage renal disease - halfway (current) use of aspirin - Nicotine dependence, [...] disease - Chest pain, unspecified - Other still operator gin (current) drug therapy - Allergy status to other drugs, medicaments and biological substances - Heart failure, unspecified - Nicotine dependence, unspecified, uncomplicated - Chronic kidney disease, stage 5 - Type 2 diabetes mellitus with diabetic chronic kidney disease - Epigastric pain - transmission supervisor (current) use of aspirin 07/28/2021 12:25 [facility] TYPE: Emergency COMPLAINT: - FACIAL SWELLING, DIFFICULTY SWALLOWING DIAGNOSES: - Cellulitis of face - transmission supervisor (current) use of aspirin - Nicotine dependence, unspecified, uncomplicated - halfway (current) use of insulin - Hypertensive heart and chronic kidney disease with heart failure and stage 1 through stage 4 chronic kidney disease, or unspecified chronic kidney disease - Allergy status to other drugs, medicaments and biological substances - Other still operator gin (current) drug therapy - Chronic kidney disease, [...] or unspecified chronic kidney disease - Other still operator gin (current) drug therapy - transmission supervisor (current) use of insulin - Nicotine dependence, unspecified, uncomplicated - halfway (current) use of aspirin - Allergy status [...] renal disease - Heart failure, unspecified - transmission supervisor (current) use of insulin - Hypertensive heart and chronic kidney disease with heart failure and stage 1 through stage 4 chronic kidney disease, or unspecified chronic kidney disease - Other still operator gin (current) drug therapy - Hypertensive heart and [...] or unspecified chronic kidney disease - Other still operator gin (current) drug therapy - halfway (current) use of insulin - Chronic kidney disease, stage 4 (severe) - Type 2 diabetes mellitus with diabetic chronic kidney disease - Nicotine dependence, unspecified, uncomplicated - Heart failure, unspecified - Allergy status to other drugs, medicaments and biological substances - Sepsis, unspecified organism - Chronic obstructive pulmonary disease, unspecified - halfway (current) use of aspirin 12/31/2020 14:51 [facility] TYPE: Emergency COMPLAINT: - BLEEDING FROM MOUTH DIAGNOSES: - Chronic obstructive pulmonary disease, unspecified - Personal history of nicotine dependence - Type 2 diabetes mellitus without complications - Malignant neoplasm of tonsil, unspecified - Malignant neoplasm of tonsil, unspecified - Heart failure, unspecified - transmission supervisor (current) use of insulin - Other still operator gin (current) drug therapy - Other chronic diseases of tonsils and adenoids - Other chronic diseases of tonsils and adenoids - Chronic kidney disease, stage 4 (severe) - Allergy status to other drugs, medicaments and biological substances - Hypertensive heart and chronic kidney disease with heart failure and stage 1 through stage 4 chronic kidney disease, or unspecified chronic kidney disease - halfway (current) use of aspirin 12/18/2020 23:56 [facility] TYPE: Emergency COMPLAINT: - HEAD PAIN,MOUTH PAIN/ NON INJ DIAGNOSES: - halfway (current) use of opiate analgesic - Malignant neoplasm of pharynx, unspecified - Complete loss of teeth, unspecified cause, unspecified class - Type 2 diabetes mellitus with diabetic chronic kidney disease - Disorientation, unspecified - Acquired absence of left leg above knee - Dependence on renal dialysis - Headache, unspecified - Other still operator gin (current) drug therapy - Chronic kidney disease, [...] [ECG] [EKG] - Acute sinusitis, unspecified - transmission supervisor (current) use of aspirin - Personal history of transient ischemic attack (TIA), and cerebral infarction without residual deficits - Presence of coronary angioplasty implant and graft - Chronic kidney disease, stage 4 (severe) - Allergy status to other drugs, medicaments and biological substances - Heart failure, unspecified - halfway (current) use of insulin 11/06/2020 11:[address] [facility] [place] TYPE: Emergency COMPLAINT: - SPITTING UP BLOOD DIAGNOSES: - transmission supervisor (current) use of aspirin - Allergy status to other drugs, medicaments and biological substances - transmission supervisor (current) use of insulin - Heart failure, unspecified - Other still operator gin (current) drug therapy - Chronic obstructive pulmonary disease, unspecified - Hypertensive heart disease with heart failure - Type 2 diabetes mellitus without complications - Hemoptysis - Allergy status to other drugs, medicaments and biological substances INPATIENT VISIT TRACKING (12 MO.) [facility] DIAGNOSES: - Phantom limb syndrome with pain - Neoplasm related pain (acute) (chronic) - Malignant neoplasm of tonsil, unspecified - Drug induced constipation - Dysphagia, unspecified - Malignant neoplasm of oropharynx, unspecified - Peripheral vascular disease, unspecified - Chronic kidney disease, stage 5 - Other constipation - Other specified counseling - Pain, unspecified - Dependence on renal dialysis - End stage renal disease - Encounter for palliative care - Hemoptysis - Adverse effect of other opioids, initial encounter 02/01/2021 09:58 Barrybenjamin Prabha [place] TYPE: Medical Surgical COMPLAINT: - FEVER; [...] tonsillar fossa 14. Atherosclerotic heart disease of [place] coronary artery without angina pectoris 15. Obstructive [...] noncompliance with renal dialysis 28. Other intermediate (current) drug therapy 29. halfway (current) use of aspirin 30. transmission supervisor (current) use of insulin 31. halfway (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 of antithrombotics/antiplatelets 32. halfway (current) use of opiate analgesic [email or web address]
[2021-10-21] MEDS ORDERED: OXYCODONE HCL20 M1 PO (04:57)
== END 2021-10-21 09:53 | disposition hospice, home (50) ==
LOC: ED 04:39
DX: R04.1 Hemorrhage from throat (principal); C14.0 Malignant neoplasm of pharynx, unspecified; Z51.5 Encounter for palliative care; E11.9 Type 2 diabetes mellitus without complications; I13.2 Hypertensive heart and chronic kidney disease with heart failure and with stage 5 chronic kidney disease, or end stage renal disease; N18.5 Chronic kidney disease, stage 5; I50.9 Heart failure, unspecified; J44.9 Chronic obstructive pulmonary disease, unspecified; F17.200 Nicotine dependence, unspecified, uncomplicated; Z88.8 Allergy status to other drugs, medicaments and biological substances; Z79.899 Other long term (current) drug therapy
CPT/HCPCS: 99283